=== PATIENT | male | born 1955 | race Caucasian/White ===

== ENCOUNTER 2021-12-09 00:04 | Outpatient (RCR) | payer MEDICARE, SELFPAY ==
--- OUTSIDE RECORDS SUMMARY | 2021-11-30 08:14 | XMS_ITS | Encounter Summary ---
:1955 Author Organization [facility] Address [address] [place] [address] Care Team Providers Name Role Phone Unavailable Primary Care Provider Unavailable Encounter Details Date Type Department Care Team Description 12/31/2016 Results Only [facility]- Mitch Kearney DPM [phone] [place] [phone] (Wo rk) Social History Tobacco Use Types Packs/Day Years Used Date Never Assessed Sex Assigned at Date Recorded Not on file documented as of this encounter Plan of Treatment Not on filedocumented as of this encounter Procedures Procedure Name Priority Date/Time Associated Diagnosis Comme [facility] SURGICAL PATHOLOGY Routine 12/31/2016 14:51 Resul ts for this EDT procedure are i n the results section. documented in this encounter Results SURGICAL PATHOLOGY (12/31/2016 14:51 EDT) Pathology Report: SURGICAL PATHOLOGY REPORT [facility] Reports generated via electronic interface contain robert ginal data; LABORATORY however they are lacking the format of the original re port. SERVICES Caution should be taken when reading/interpreting unfo rmatted reports. Name: ? SOLEDAD WAHL ? Accession #: ? [id number] ? : ? 1955 (Age: [age]) ??M ? Collect Date: ? 12/31/2016 ? Location: ? [facility] ? Receive Date: ? 7 ? Provider: [place] [place] DPM Copy to: SHYANN CORNEJO AMMONIA PRINT OPERATOR ? Final Pathologic Diagnosis: BONE, RIGHT 5TH METATARSAL HEAD, EXCISION: - No histologic evidence of osteomyelitis. ?? Document reviewed and electronically signed by: CHELSEY LOPEZ MD Report ??Date: 01/03/2017 16:35 By the signature above, the attending physician certif ies that he/she has personally conducted a gross and/or microscopic examin ation of the described specimens and rendered or confirmed the above diagnosi s. Specimen(s) Received: 5th metatarsal head, R Clinical History: 5th metatarsal head, R; chronic ulcer Gross Description: ? Received in formalin labelled with proper patient identification (initials L, D) and #1 metatarsal head 5th toe, right foot is a 1.6 x 1.5 x 1.0 cm ring-pink portion of bone. Sectioning reveals yellow tr abecular bone. Placement Director sections are submitted in 1 following d ecalcification. NIEVES Glass ([facility]) 01/01/2017 3:40 PM End of Report Specimen Performing Organization Address City/State/ZIP Code Phon e Number [facility] [address] [place] [address] SERVICES documented in this encounter Visit Diagnoses Not on filedocumented in this encounter
--- OUTSIDE RECORDS SUMMARY | 2021-11-30 08:14 | XMS_ITS | Clinical Summary ---
:1955 Author Organization [facility] Address [address] [place] [address] Care Team Providers Name Role Phone Sommer Obrien Primary Care Provider Social History Tobacco Use Types Packs/Day Years Used Date Never Assessed Sex Assigned at Date Recorded Not on file Plan of Treatment Health Maintenance Due Date Last Done Comments Fall Risk Screening 2018 Care Teams Intermediate Teacher Relationship Specialty Start Date End Date Sommer Obrien ARNP PCP - General 01/02/17
--- OUTSIDE RECORDS SUMMARY | 2021-11-30 08:15 | XMS_ITS | Encounter Summary ---
:1955 [place] [address] Care Team Providers Name Role Phone Brian Fall APRN Primary Care Provider Reason for Referral Consultation (Routine) - Authorized Specialty Diagnoses / Procedures Referred By Contact Refer red To Contact Infectious Diseases Diagnoses Osteomyelitis of great toe of right foot Diabetic infection of right foot Coagulase-negative staphylococcal infection Sequela of Corynebacterium infection Bacteroides infection Proteus mirabilis infection Judit Spencer [place] Infection due to species of Streptococcus milleri group Cellulitis of foot, right DO Jenaro Perez DO [facility] [address] FLORES INFECTIOUS DISEASE [place] [address] Fax: Referral ID Status Reason Start Date Expiration Visits Visits Date Requested Authorized [id number] Authorized Assume 11/28/2021 11/28/2022 1 1 Subset of Care [facility] (Routine) - Pending Review Specialty Diagnoses / Procedures Referred By Contact Refer red To Contact Diagnoses Acute osteomyelitis of right foot Necrotizing fasciitis Cyndy Padilla PA [address] [address] [place] [phone] Fax: Referral ID Status Reason Start Expiration Visits Visits Date Date Requested Authorized [id number] Pending Consult, 11/29/2021 11/29/2022 999 999 Review Test & Treat Reason for Visit Reason Comments Leg Pain Auth/Cert Specialty Diagnoses / Procedures Referred By Contact Refer red To Contact Diagnoses Necrotizing fasciitis Cellulitis of leg, right Necrotic toes Infected Toe [place] [address] Referral ID Status Reason Start Date Expiration Date Visits Requ ested Visits Authorized [id number] 1 1 Encounter Details Date Type Department Care Team Description 11/18/2021 - [address] Lorrie Barrow MD [facility] EM[facility] [place] [id number] Necrotizing fasciitis (Primary Dx); 11/29/2021 Encounter [facility] [place] [address] [facility]ec[facility] toes[facility] [place] [address] Cellulitis of leg, right; [facility] Jennifer Martinez MD [facility] [place] [address] Essential hypertension; Drive Chronic foot ulcer, unspecif ied laterality, unspecified ulcer stage; [place], [place] QT prolongation ; [phone] Osteomyelitis of great toe o f right foot; [phone] Diabetic infect ion of right foot; Coagulase-negat bg staphylococcal infection; Sequela of Esa nebacterium infection; Bacteroides inf ection; Proteus mirabil is infection; Infection due t o species of Streptococcus milleri group; Cellulitis of f oot, right; Acute osteomyel itis of right foot; S/p right great toe amp, I&D, vac 11/18/21 (Diego) Social History Tobacco Use Types Packs/Day Years Used Date Current Every Day Smoker Cigars, Cigarettes 1 42 Smokeless Tobacco: Never Used Comments: a pack or less a day Alcohol Use Standard Drinks/Week Comments Yes 22 (1 standard drink = 0.6 oz pure alcoh ol) Sex Assigned at Date Recorded Not on file documented as of this encounter Last Filed Vital Signs Vital Sign Reading Time Taken Comments Blood Pressure 123/86 11/29/2021 11:33 AM EDT Pulse 85 11/25/2021 3:16 PM EDT Temperature 36.6 ??C (97.9 ??F) 11/29/2021 11:33 AM EDT Respiratory Rate 20 11/29/2021 11:33 AM EDT Oxygen Saturation 95% 11/29/2021 11:33 AM EDT Inhaled Oxygen Concentration - - Weight 92.8 kg (204 lb 9.4 oz) 11/29/2021 3:50 AM EDT Height 175.3 cm (5' 9) 11/20/2021 3:51 PM EDT Body Mass Index 30.21 11/20/2021 3:51 PM EDT documented in this encounter Discharge Summaries Cyndy Padilla PA - 11/29/2021 3:47 PM EDT Images from the original note were not included. Discharge Summary Patient Name: Soledad Ramos Patient Age: 66 y.o. Language: Congolese Race: White Ethnicity: Not nor Admit date: 11/18/2021 Discharge date and time: 11/29/2021 Attending Physician: Jennifer Martinez MD Discharge Provider: NIEVES Hutton Follow-up Recommendations for Providers: - Continue methadone for chronic pain dose adjustments per ZELDA. His last dose of methadone was 45 mg on 11/29/2021. Last QTC done on the same day was 494. Plan discussed with Dr. Garrison at [facility] to increase by 10 mg daily while monitoring daily EKG. - Patient is on IV ertapenem 1 g daily and IV daptomycin 700 mg daily through 01/06 for osteomyelitis. His IV infusions are set up with [facility] Mendoza in [facility], with his next appointment on 11/30 at 1 PM. - He will need PCP, ID, orthopedic follow-up Inpatient Provider Contact Information: For questions regarding this document or issues relating to this hospitalization on the Medical Service, please contact your inpatient physician through the [facility] Shellfish Manager . Issues after hours and on weekends will be handled by the Hospitalist staff on-call. Discharge Diagnoses (Hospital Problems) and Secondary Diagnoses (Chronic Problems): Active Hospital Problems Diagnosis ? ? S/p right great toe amp, I&D, vac 11/18/21 (Diego) ??? Alcohol withdrawal syndrome, with delirium Resolved Hospital Problems No resolved problems to display. Active Non-Hospital Problems Diagnosis ??? Pruritic rash ??? Necrotizing soft tissue infection ??? Cellulitis of right foot ??? Acute osteomyelitis of right foot ??? Tightness of right gastrocnemius muscle ??? Edema of both lower extremities due to peripheral venous insufficiency ??? Functional gait abnormality ??? Noncompliance with treatment ??? Tobacco dependence syndrome ??? Chronic foot ulcer ??? Cellulitis ??? Tobacco user ??? Osteomyelitis ??? Neuropathic ulcer of toe of right foot with fat layer exposed ??? Neuropathic ulcer of foot, right, with fat layer exposed ??? Nausea ??? Fatigue ??? Patient has active durable power of oncology admin (DPOA) designee for healthcare ??? Methadone dependence ??? Minimal cognitive impairment ??? Claustrophobia ??? Hyperlipidemia ??? Avascular necrosis of humeral head ??? Pain in left shoulder ??? Verruca plantaris ??? Gastroesophageal reflux disease ??? Cirrhosis ??? Polysubstance abuse ??? Avascular necrosis bilateral knees ??? Depressive disorder ??? Neuropathy ??? Chronic obstructive lung disease ??? Edema ??? Essential hypertension ??? Confusion ??? Hepatitis C ??? Gout ??? Alcohol dependence ??? Anxiety ??? ADHD NOS ??? Chronic back pain ??? Major depressive disorder, single episode, unspecified Operations/Major Procedures: Operations: Procedure(s): DEBRIDEMENT SKIN, SUBCU, MUSCLE, BONE, LOWER EXTREMITY (WRVU 4.1) AMPUTATION, TRANSMETATARSAL (WRVU 12.71) 11/25/2021 Not Performed Procedure(s): DEBRIDEMENT SKIN, SUBCU, MUSCLE, BONE, LOWER EXTREMITY (WRVU 4.1) AMPUTATION, TRANSMETATARSAL (WRVU 12.71) 11/25/2021 Procedure(s): DEBRIDEMENT SKIN, SUBCU, MUSCLE, BONE, LOWER EXTREMITY (WRVU 4.1) AMPUTATION, TRANSMETATARSAL (WRVU 12.71) 11/25/2021 Procedure(s): DEBRIDEMENT SKIN, SUBCU, MUSCLE, BONE, LOWER EXTREMITY (WRVU 4.1) AMPUTATION, TRANSMETATARSAL (WRVU 12.71) 11/25/2021 Procedure(s): DEBRIDEMENT SKIN, SUBCU, MUSCLE, BONE, LOWER EXTREMITY (WRVU 4.1) AMPUTATION, TRANSMETATARSAL (WRVU 12.71) 11/25/2021 Other Major Procedures: N/A History of Presentation: As per admission H&P on 11/18: Soledad Ramos is a 66 y.o. male with hx of EtOH abuse with alcoholic neuropathy and chronic b/l foot wounds(previous osteomyelitis), prior left 4th- 5th amputations, COPD on 2 L O2 at home, opioid usedisorder on methadone and mild cognitive impairment presenting for admission from the [facility] (transferred from [facility] ED) at the request of the orthopedic surgery service for necrotizing soft tissue infection of the right foot/great toe. History obtained from patient and chart review . ?? Soledad relates that he initially presented to [facility] this AM after rapid progression of his chronic toe wounds over night. States he went to be on 11/17 in his usual state of health and when hewoke up this AM his right great toe/foot and leg developed progressive redness and swelling and he had developed a black spot on his right great toe. Patient related feeling pain in that toe/foot as well which is abnormal as his baseline is almost no feeling in his feet at all. He denies any fevers orchills. ?? He presented to [facility] where his labs were significant for a WBC 23k, Cr 1.1, Hgb 13, Glucose 117, Na 137, CRP unknown (not obtained). He was administered clindamycin and Vancomycin [facility] and recommended transfer to [facility] ED for further work-up and evaluation for potential necrotizing infection given his history of a rapidly progressing skin infection with areas concerning for necrosis. He was evaluated here upon arrival in the ED by theorthopedic team and their suspicions are confirmed by exam. They have ordered a CT and plan to take the patient to the OR in the next 6 hours. They have asked hospital medicine to admit patient given nh s medical complexity and multiple co-morbidities. Hospital Course: #Necrotizing soft tissue infection s/p RIGHT 1st toe amp on 11/18/[address] right LE consistent with necrotizing soft tissue infection. Orthopedics was consulted who completed guillotine partial first ray resection right foot with wound VAC 11/18/21. Right greattoe transmetatarsal amputation with wound VAC with 3 bone cultures were obtained on 11/23. Then lastly, he had debridement with closure, with removal of wound vac on 11/25; resection site culture obtained. Patient was initially started on Zosyn, clindamycin, vancomycin (11/19 - 11/23). Wound cx 11/18 with with Proteus mirabilis (resistant only to tetracycline and tigecycline), strep milleri and Staph aureus and anaerobic culture grew many bacteroides species. Therefore antibiotics were changed to ceftriaxone and Flagyl per ID on 11/23. Bone cultures from 11/23 and Tissue cultures 11/25 (confimed with Orthoto be bone along with tissue) grew 2 different coag negative staph susceptible to FQ, gentamicin, and vancomycin; Also grew rare Corynebacterium species. Therefore ID recommended daptomycin 700 mg and ertapenem 1 g every 24 hours for total 6-week, with EOT 01/06. He will need to remain nonweightbearingon his right lower extremity. He was seen by PT/OT, cleared for discharge home with VNA. ?? #opioid use disorder #EtOH abuse #peripheral neuropathy #post-op pain control #Acute Alcohol Withdrawal For acute pain he was treated with hydromorphone SC every 4 hours PRN post- operatively which was increased to q3 hours to meet more equivalent chronic baseline needs, tylenol, and gabapentin. QTC also noted to be 518. Therefore home methadone was held from 11/18-11/26. His methadone dose was confirmed to be 90 mg daily. He was resumed on methadone 15 mg twice daily on 11/27 with close monitoring of his QTC. His methadone was then uptitrated to 45 mg daily on 11/28. His last methadone dose was 45 mg on 11/29/2021. Repeat QTC 494. He was monitored for ETOH withdrawal and placed initially on CIWA scale using Ativan and transitioned to phenobarbital taper 11/20. and he was transitioned back to methadone ?? #Hypokalemia K low at 2.9, repleted. Telemetry unremarkable. #COPD on 2L NC at baseline #tobacco use- current 1 pack per day smoker He was continued on his home medications ?? #HTN Given hypo to normotensive blood pressures his home lisinopril and lasix were held on admission. Hishome metoprolol was reduced from 150 daily to 25 mg q6h. By time of discharge he was placed back on his home medication given persistently elevated hypertension requiring as needed hydralazine, likely due to pain. Blood pressure stable on discharge. #home medications Continued remained home medications pantoprazole, buspirone, mirtazapine 30 mg?? Vital Signs at Discharge: BP: 123/86, Heart Rate: 85, Temp: 36.6 ??C (97.9 ??F), Resp: 20, Height: 175.3 cm (5' 9) (11/20/21 1551) Weight: 92.8 kg (204 lb 9.4 oz) (11/29/21 0350) Functional and Cognitive Status: NWB RLE, AxOx3 Important Studies and Lab Data: Labs: Last wbc, hgb, hct plt Recent Labs 11/29/21 0340 WBC 12.5* HGB 13.9 HCT 41.3 Last 3 wbc, hgb, hct plt Recent Labs 11/29/21 0340 11/28/21 0315 11/26/21 0656 WBC 12.5* 12.8* 12.0* HGB 13.9 13.9 13.6* HCT 41.3 41.6 40.5 PLATELET 494* 504* 418* Last 3 Lytes Recent Labs 11/29/21 0340 11/28/21 1830 11/28/21 0315 11/26/21 0656 NA 138 -- 141 143 K 3.7 3.6 2.9* 3.6 CL 101 -- 102 109* CO2 25 -- 25 22 BUN 22* -- 14 8* CREATININE 1.47 -- 1.49 1.20 Last 3 LFTs Recent Labs 11/21/21 0838 11/18/21 1725 AST 13 Not Perf ALT 10 8 ALKPHOS 76 91 BILITOT 0.4 0.4 BILIDIR 0.1 Not Perf Last Ca, Mg, Phos Recent Labs 11/29/21 0340 11/28/21 0315 11/26/21 0656 11/23/21 1628 CALCIUM 9.2 9.0 < > 9.2 PHOS -- -- -- 4.0 MAGNESIUM -- 0.74 < > -- < > = values in this interval not displayed. Last 3 Coags No results for input(s): PT, INR, PTT in the last 168 hours. Last 3 ProBNP, Trop, CK Recent Labs 11/26/21 0656 CK 74 Last 3 TFT No results for input(s): TSH in the last 7068 hours. Invalid input(s): T4, FT4 Last 3 Lipids No results for input(s): CHLPL, HDL, LDLCHOL, LDLDIRECT, TRIG in the last 7068 hours. Last 3 HgbA1C No results for input(s): HA1C in the last 7068 hours. Last CRP, SEDRATE Recent Labs 11/19/21 0556 11/18/21 1725 CRP -- 265.6* SEDRATE 104* -- Last 3 CBC Recent Labs 11/29/21 0340 11/28/21 0315 11/26/21 0656 WBC 12.5* 12.8* 12.0* Pending Studies and Lab Data: N/A Discharge Conditions/Prognosis: Stable, improving Discharge to: Home with VNA Updated Allergies/ADRs: Allergies Allergen Reactions ??? Morphine Other (See Comments) STATES THAT IT DOES NOT TAKE HIS PAIN AWAY Immunizations Given this Hospitalization: Immunization History Administered Date(s) Administered ??? Hep A/Hep B 07/11/2009, 08/11/2009, 02/14/2010 ??? Influenza PF, Split 03/07/2011 ??? Influenza Vaccine, Whole 05/21/2007, 03/04/2008 ??? Pfizer Covid-19 (Purple Cap) Vaccine (12yrs+) 03/05/2021, 03/26/2021 ??? Pneumococcal Polyvalent 23 02/11/2012 ??? Tdap Vaccine 02/11/2012 Discharge Medications: Your Medications New Medications Dose Details cyclobenzaprine 5 mg Tab Commonly known as: Flexeril Take 1 tablet by mouth 3 times daily as needed for Muscle spasms. 5 mg Quantity: 15 tablet Refills: 0 DAPTOmycin 500 mg Solr Commonly known as: Cubicin 700 mg daily through 01/06 Refills: 0 ertapenem 1 gram Solr Commonly known as: INVanz Inject 1 g as directed daily for 38 days. 1 g Quantity: 300 mL Refills: 1 folic acid 1 mg Tab Commonly known as: Folvite Take 1 tablet by mouth daily. Start taking on: November 30, 2021 1,000 mcg Quantity: 30 tablet Refills: 0 thiamine 100 mg Commonly known as: Vitamin B1 Take 1 tablet by mouth daily. Start taking on: November 30, 2021 100 mg Quantity: 30 tablet Refills: 0 Continued medications with new dosing Dose Details albuteroL 90 mcg/actuation Hfaa Inhale 2 puffs into the lungs every 4 hours as needed for Wheezing. Use with spacer What changed: Another medication with the same name was removed. Continue taking this medication, and follow the directions you see here. 2 puff Quantity: 1 each Refills: 11 methadone 10 mg/mL Conc Commonly known as: Dolophine Take 4.5 mLs by mouth daily. Start taking on: November 30, 2021 What changed: ?? medication strength ?? how much to take 45 mg Refills: 0 Continued medications, unchanged Dose Details acetaminophen 325 mg Tab Commonly known as: Tylenol Take 650 mg every 4 hours by oral route as needed. Refills: 0 BUSPIRONE ORAL Take 30 mg by mouth 2 times daily. 30 mg Refills: 0 furosemide 40 mg Tab Commonly known as: Lasix Take 80 mg by mouth daily. 80 mg Refills: 0 gabapentin 300 mg Cap Commonly known as: Neurontin Take 600 mg by mouth 3 times daily. 600 mg Refills: 0 lisinopriL 40 mg Tab Commonly known as: Zestril Take 1 tablet by mouth daily. 40 mg Quantity: 90 tablet Refills: 3 * metoprolol succinate XL 100 mg Tablet sr Commonly known as: Toprol-XL Take 100 mg by mouth daily. (In addition 50mg tab, total dose: 150mg daily) 100 mg Refills: 0 * metoprolol succinate XL 50 mg Tablet sr Commonly known as: Toprol-XL Take 50 mg by mouth daily. (In addition 100mg tab, total dose: 150mg daily) 50 mg Refills: 0 mirtazapine 30 mg Tab Commonly known as: REMERON Take 30 mg by mouth nightly. 30 mg Refills: 0 multivitamin Tab Commonly known as: THERAGRAN Take 1 tablet by mouth daily. 1 tablet Refills: 0 pantoprazole EC 40 mg Tbec Commonly known as: Protonix Take 40 mg by mouth 2 times daily. 40 mg Refills: 0 triamcinolone 0.1 % Crea Commonly known as: Kenalog Apply twice daily to bilateral lower legs, times two weeks then off two week, repeat as needed. Quantity: 30 g Refills: 0 * This list has 2 medication(s) that are the same as other medications prescribed for you. Read thedirections carefully, and ask your doctor or other care provider to review them with you. STOPPED Medications Chantix Starting Month Box 0.5 mg (11)- 1 mg (42) Dspk Generic drug: varenicline donepeziL 10 mg Tab Commonly known as: Aricept Dulera 100-5 mcg/actuation Hfaa Generic drug: Mometasone-Formoterol nicotine 21 mg/24 hr Pt24 Commonly known as: Nicoderm CQ ondansetron ODT 8 mg Tbdl Commonly known as: Zofran-ODT predniSONE 20 mg Tab Commonly known as: Deltasone QUEtiapine 25 mg Tab Commonly known as: SEROquel Spiriva Respimat 2.5 mcg/actuation Mist Generic drug: tiotropium bromide Smoking Status at Discharge: Social History Tobacco Use Smoking Status Current Every Day Smoker ??? Packs/day: 1.00 ??? Years: 42.00 ??? Pack years: 42.00 ??? Types: Cigars, Cigarettes Smokeless Tobacco Never Used Tobacco Comment a pack or less a day Instructions Given to Patient at Discharge: Patient Instructions Instructions on Discharge to Home Why you were hospitalized - osteomyelitis You were hospitalized for a bone infection, osteomyelitis, and had your right great toe amputated. You will need to be on IV antibiotics until 01/06. You will need to follow-up with daily infusion clinic - [facility] in [facility] tomorrow at 1 PM. The infectious disease providers well call you to set up a follow-up appointment towards the end of your IV antibiotic course. You also have an orthopedic follow-up at 2:30 PM on 12/11. You may continue with [id number] Tylenol as needed for pain, not to exceed 4000 mg daily. We also resumed your methadone dose, you are now on 45 mg daily. You will need to see your [facility] provider for your next methadone dose, it is very important that you bring all of your home methadone to that visit. I will also give you a copy of this discharge summary signed as a last dose letter for you to provide the clinician and ordered for you to get your methadone dose. Your PCP appointment is on 12/10 at 9:30 AM. Call your doctor or seek medical attention if you develop the following - chest pain, shortness of breath, fever, cough, weakness in an arm or leg Activity level - no restrictions Diet - no change in previous diet Driving - as before hospitalization. Please do not drive while on narcotics Shower/Bath - permitted Wound Care - none Home Oxygen therapy - none Changes in Your Medications: New Medications: - IV antibiotics - Daptomycin and Ertapenam - Folate - Vitamin B12 - Flexeril three times a day as need for muscle spasms Medication dose changes: - Methadone dose now at 45 mg, he will need to follow-up at [facility] tomorrow to have your new dose set by them. Stop these medications: - Zofran Follow-up: Future Appointments Date Time Provider Department [facility] Your Inpatient Doctor: LORRIE LUNDBERG, VALENTINA ROGERS, AFSHIN MARTINEZ, JENNIFER Perez Your Primary Care Provider: @PCPID@ For questions regarding this document or issues relating to this hospitalization on the Medical Service, please contact your inpatient physician through the [facility] Shellfish Manager . Issues after hours and on weekends will be handled by the Hospitalist staff on-call. General Instructions Orthopedic Surgery Discharge Instructions Activity level: 1. You are Non-weight bearing on your Right leg. 2. Remember to use the walker or crutches at all times for protection and balance. 3. Remember to keep your Right leg elevated as much as possible to decrease swelling and control pain. Driving: None until you are cleared to do so by your Orthopedic surgeon. You should not drive while you are on narcotic pain meds as they can affect your judgment and reaction time. Call your surgeon with any questions/concerns. Shower/Bath: You may shower BUT use a waterproof dressing (plastic bag taped at the top) to cover the incision/dressing. DO NOT submerge the wound. Remember you MUST to observe your weight bearing status and activity limitations when you shower so use a chair or bench for balance if you are unable to safely stand. A sponge bath may be easier. Wound Care: 1. Suture/staple removal 2-3 weeks post-op (12/10 to 12/17). 2. Leave the operative dressing on until follow-up. Call your doctor ([phone]) if you develop: 1. Fever greater than 100.5 2. Severe nausea or vomiting 3. Increasing pain that is not controlled by pain medications 4. Increasing redness, swelling, or drainage from incisions 5. Change in sensation Misc: 1. If you are a smoker, quitting is very important to help your fracture heal. You should contact your PCP to assist you with setting up a cessation program. 2. Remember that ICE and elevation are very important to help decrease swelling and control pain. You should use the ICE for 20-30 minutes at a time. 3. To help with bone healing and your overall bone health, your intake of calcium should be at [id number] a day and your vitamin D intake should be at least 800 IU per day. FOLLOW-UP APPOINTMENTS: 1. You will have follow-up appointments at [facility] as indicated in Future Appointment and Orders. 2. Please call Orthopedics at if you have any questions or concerns, as your follow-up is important to us. Future Appointments Date Time Provider Department Center 12/11/2021 1:00 PM [facility] DX ROOM 2 Xray [facility] Rad 12/11/2021 2:30 PM Marion Tavera APRN [facility] ORTH 3C [facility] 01/15/2022 12:[address] [facility] [address] [facility] RAD CT [facility] Rad SAME DAY PROGRAM POST-OPERATIVE INSTRUCTIONS What to Expect After a Nerve Block Prevent pain as the nerve block wears off. The nerve block you had to prevent pain during a procedure, will wear off in 12-48 hours. Once the block starts wearing off, it goes fast - often gone in 60 minutes. If you will need pain relief after the block wears off, your surgeon will prescribe pain medicine. ??? IMPORTANT: Start taking pain medicine before the nerve block wears off. ??? Eat something before taking the pain medicine to prevent upset stomach. If it's not mealtime, eating crackers or a light snack will help. ??? Nerve blocks sometimes wear off during the night. Take pain medicine before going to sleep, so you don't wake up in pain. A nerve block may create strange feelings in the blocked body part. Nerves control movement, pain, and normal sensations. When they are blocked to prevent pain, you may have feelings in the blocked area of: ??? Weakness ??? Numbness ??? Tingling ??? Heaviness ??? A feeling that your arm or leg has ???fallen asleep?? Just to repeat, the block can last 12-48 hours depending on the medicines used. Usually weakness wears off first, followed by a numb or tingly sensation. Pain can return unless you take pain medicines before the block wears off. If you had a shoulder block, you may notice these other signs: ??? Mild shortness of breath ??? A hoarse voice ??? Blurry vision ??? Eye pupils not equal in size ??? Drooping of your face on the same side as the nerve block These are common side effects after a shoulder nerve block. They should go away within 12 hours. *IMPORTANT: If these signs do not go away in 24 hours, please call the Anesthesiology Department: [phone] Shortness of breath: If you have severe shortness of breath that seems to go on and on, please go tothe nearest ER (emergency room). If a nerve block lasts longer than 48 hours, take action. If the nerve block does not wear off within 48 hours, please call the Anesthesiology Department: [phone] Protect the part of your body that is numb. Because a nerve block stops pain, pressure, or feeling in your blocked body part, you might be more at risk for injury. For example, you could burn your arm or leg without knowing it right away. Use these tips to protect your limb while it's numb: ??? While you are awake, try to change positions of your arm or leg often. This keeps you from putting too much pressure on a limb for a long time. ??? While sleeping, use pillows around the limb to stop too much pressure on it for too long. ??? If you have a cast or a tight dressing, check the color of your fingers or toes every few hours.If they have a strange color, call your doctor. ??? If you have a sling after an arm or hand block, wear it all the time until feeling returns to your arm or hand. The sling keeps you in the right position. If you do not have a sling, look at the position of the numb arm often, to make sure it's safe. ??? Ask your family or support person to help you stay aware and use these tips. Questions? Please call the Anesthesiology Department with concerns or questions: [phone] After hours: Call the hospital mixer operator helper hot metal and ask for the anesthesiologist (deb talbot) motor room controller: [phone] Updated: 03/19/21 If you have questions or concerns: Friday through Friday, 8 AM - 5 PM, please call Sammy Baker MD's office at . If it is after 5 PM or on the weekend, please call and ask to speak with the Orthopedic resident on-call. Substance Use Treatment, Harm-Reduction, and Relapse Prevention Resources [facility] Treatment: [place] [id number] [address] Intensive Outpatient Program: [facility] [address], [place] [phone] Individual Counseling: [facility] [address], [place] [address] [facility] [address] [place] [phone] [phone] Anne-Marie [facility], [facility] [address] [place] [phone] Offers EMDR Therapy You may also search www.PetroFeed.RoboCV or AMResorts for therapists in your area. EMDR Therapy Eye Movement Desensitization and Reprocessing (EMDR) therapy is an extensively researched, effectivepsychotherapy method proven to help people recover from trauma and other distressing life experiences, including PTSD, anxiety, depression, and panic disorders. EMDR therapy does not require talking indetail about the distressing issue or completing homework between sessions. EMDR therapy, rather than focusing on changing the emotions, thoughts, or behaviors resulting from the distressing issue, allows the brain to resume its natural healing process. EMDR therapy is designed to resolve unprocessed traumatic memories in the brain. For many clients, EMDR therapy can be completed in fewer sessions than other psychotherapies. www.emdria.org/qqgvc-vvbq-ehpomhd/ Medication Assisted Therapy: [address] [place] [address] [place], [place] [id number] Peer Support Groups Alcoholics Anonymous (AA) [place]: , www.nhaa.net Narcotics Anonymous (NA) [place]: , www.gmana.org Community Peer Support Center [address] [phone] Online AA and NA Meetings AA, NA, Refuge Recovery, SMART Recovery www.Casinity AA Video Meetings www.aa-intergroup.org/directory_audio-video.php AA Text Chat Meetings www.aa.intergroup.org/directory.php NA Video Meetings www.virtual-na.org/meetings NA Text Chat Meetings Www.neveraloneclub.org SMART Recovery Meetings via Zoom 5:00-6:00pm, free and open to all To join Zoom meetin. Visit www.coRank 2. Click on calendar on top of toolbar 3. Find the correct meeting date and time 4. Click the zoom link and enter password provided Additional Substance Use Treatment Resources Www.vtaddictionservices.org www.healthvermont.gov/alcohol-drugs www.eobewmj328.org/ (Search for Substance Use) www.Concept[employer]/ Www.rethinkingdrinking.niaaa.nih.gov/ www.samhsa.gov/xjkznhbzqd-waoatxmt-iviseiqzi/ijtmuyeobxrf-ttkmslr-bufr/treatment -practitioner-calker Mental Health Crisis [facility] [facility] Crisis Line: Dial 984 www.[facility].gov/find-help/982 Harm-Reduction Resources Mobile yuback. For more information about receiving supplies: including syringe exchange, fentanyl test strips, and naloxone, or to schedule an appointment: [place] clients call and leave a message for Yoana (ext. 105) or Zbigniew Quigley (ext. 104). [place] clients call to speak with Zbigniew Waddell Suboxone Emergency Override There is an emergency override requirement on all medications that require prior insurance authorization. If you experience any issues picking up your suboxone prescription at the pharmacy you may request an override. They are required to provide the quantity of suboxone sufficient for 72 hours while the prior insurance authorization is being approved. Online Stress Reduction Resources www.[employer] Holding.RoboCV/videos-features/videos/pzaienvut-vsqeibowe-1-7-8-breath/ www.themindfulword.org/2013/unpvzwiat-oqelrcitg-mxtwqob-moment/ www.Topcom [place]/ www.mindful.org/ www.freemindfulness.org/ Employment Agency Working [address] [address] rom@Voice2Insight Providing an opportunity for successful employment and recovery by empowering individuals to manage challenges because of substance use addiction and past convictions. YOU ARE SCHEDULED FOR A FOLLOW UP APPOINTMENT WITH YOUR PRIMARY CARE PROVIDER ON 12/10/2021 AT 9:30AM Future Appointments and Orders Future Appointments and Orders Future Appointments Provider Department Dept Phone 12/11/2021 1:00 PM [facility] DX ROOM 2 XRay at [facility] Arrive at: Flight Operations Dispatch Clerk Area 3T [phone] Please go to Flight Operations Dispatch Clerk Area 3T ([facility] Location). 12/11/2021 2:30 PM Marion Tavera APRN Orthopaedics at [facility] Arrive at: Flight Operations Dispatch Clerk Area 3C [phone] 01/15/2022 12:[address] [facility] [address] CT Scan at [facility] Arrive at: 3Z RADIOLOGY [phone] Future Orders Complete By Expires XR Foot Min 3 views Right (Generic) [23951 Custom] 12/11/2021 05/30/2022 Process Instructions: Scheduling Instructions: Comments: Questions: Where will study be performed?: [facility] Radiology Portable exam?: Reason for exam and clinical history: s/p 1st toe amp Clinical information / hansen questions for radiologist: Stat read required?: Date of injury if applicable: Requested Time: OPAT: Order / Recommendation for Post Discharge IV Antibiotic Management [FEP697 CPT(R)] As directed Process Instructions: If no progress note charted, please enter Clinical details in comments. Scheduling Instructions: Comments: Please Fax all results to: OPAT Program Infectious Disease Section [facility] [place], [place] [address] FAX: After hours, please contact the Infectious Disease Physician motor room controller at . If this order was signed greater than 72 hours prior to [facility] discharge, please call to confirm the accuracy of this order. If concerned about opioid overdose, administer patient's own naloxone 4mg (contents of 1 nasal spray) as a single dose in one nostril PRN for signs of opioid overdose (depressed respirations or consciousness). May repeat as needed q2-3 minutes in alternating nostrils until medical assistance arrives. Line care instructions: PLEASE NOTE: Not all facilities use Heparin Adult PICC, Single Lumen Flush protocol with medication infusion (SASH): Before Med: 10ml Normal Saline After Med: 10ml Normal Saline then 3 ml Heparin (10 units/ml) Flush protocol after blood withdrawal: Before: 10 ml Normal Saline Draw blood After: 20 ml Normal Saline then 3 ml Heparin (10 units/ml) If PICC line not being used for daily IV infusions: Flush 2x's daily & prn: 10 ml Normal Saline then 3 ml heparin (10 units/ml) care home for medication administration/film processing shift supervisor and catheter care/maintenance authorized. PICC Dressing Change weekly and PRN Please use CHG or Bio Patch RNs: Please care for PICC line including dressing changes weekly and prn. Please draw labs every Friday and PRN and fax results to [facility] at [phone]. Please draw labs off PICC line. [facility] for [facility] draw details. RN visits for IV ABX teaching as needed and ongoing assessment. Catheter Occlusion Management Instill reconstituted Cathflo 2mg per instillation (based on the volume of the catheter lumen). May repeat x1 per occlusion incident. Questions: ID Diagnosis: Cellulitis/Polymicrobial diabetic foot infection, Osteomyelitis of right great toe; s/p reamputation through [facility] 11/25/21 Microorganisms being treated: Coagulase negative staph, Corynebacterium species, Bacteroides species, Proteus mirabilis, Strep milleri Antibiotic Allergies: No Known Antibiotic Drug Allergies Antibiotic: Daptomycin 700 mg IV Every 24 Hours Ertapenem 1 Gram IV Every 24 Hours Special Instructions: Start date: 11/25/2021 Anticipated stop date: 01/06/2022 Labs: Q Friday: CBC/Diff, CMP Q Friday Inflammatory CRP Q Friday CPK Last documented weight (kg): 91.9 kg (202 lb 11.2 oz) Last documented height (cm): 175.3 cm (5' 9) Infectious Disease Attending: Judit Spencer, [facility] [EQ161 Custom] As directed Process Instructions: Scheduling Instructions: Comments: Soledad Ramos [address] [facility] [facility] [phone] (home) No relevant phone numbers on file. Diagnosis: deconditioning with Unsteady gait Significant weakness, ataxia or gait abnormality Patient's: Hgt: Ht Readings from Last 1 Encounters: 07/12/22 : 175.3 cm (5' 9) ? Wgt: Wt Readings from Last 1 Encounters: 11/29/21 : 92.8 kg (204 lb 9.4 oz) VENDOR: [facility] Ordering: Front wheel walker Deliver to 's hospital room #: 110-B Questions: Device Needed: 2 BUTTON FOLDING WHEELED WALKER (E0143) Referral for Outpatient Antibiotics [XKL7452 CPT(R)] As directed Process Instructions: Scheduling Instructions: Comments: Follow OPAT orders Questions: Vendor / contact information: [facility] Patient location post discharge: Home Service requested: Home ABX with supplies / PICC line Start date: Responsible MD post discharge contact info: Referral to Home Health [REF34 Custom] As directed Process Instructions: If no progress note charted, please enter Clinical details in comments. Scheduling Instructions: Comments: Please evaluate Soledad Ramos for admission to Home Health. [address] [facility] [phone] (home) Date of : 1955 DOCUMENTATION FOR VNA SERVICES (INCLUDING THOSE PATIENTS WITH MEDICARE COVERAGE REQUIRING HOME VNA SERVICES AND/OR HOSPICE SERVICES) PATIENT'S LOCATION: Soledad Ramos [address] [facility] [address] (home) Cell: No relevant phone numbers on file. Industrial Relations Worker's Name: Self / In discussion with the attending physician, it is certified that this patient is under their care and that they, or a Nurse Practitioner,Clinical Nurse specialist or Physician Bus Matron who is working directly with them, had a face to face encounter that meets the physician face to face encounter requirements with this patient on 11/29/2021. The encounter with the patient was in whole, or in part, for the following medical condition, which is the primary reason for home health care services: osteomyelitis on IV antibiotics In discussion with the provider, it is certified that, based on their findings, the following services are medically necessary for home health services. To provide the following care/treatments with the clinical findings supporting the need for servicesas follows: HOME CARE ORDERS: RN ORDERS:Assess wound or incision, vital signs, cardiopulmonary status, nutrition, hydration, elimination, meds effectiveness and management; reinforce education re health issues Wound Care: 1. Suture/staple removal 2-3 weeks post-op (12/10 to 12/17). 2. Leave the operative dressing on until follow-up. Home IV ABX / PICC line care PT ORDERS: Continue rehab for endurance, gait stability and strength with mobility and transfers. Home safety evaluation. Home exercise program if appropriate. OT: assess and continue rehab for managing ADL's. HOME HEALTH CARE AGENCY: [facility] [place] [address] PHONE: [phone] FAX: [phone] Start of care: Day of discharge FOR MEDICARE ONLY: (please delete this section if not Medicare) In discussion with the attending physician, it is certified that the clinical findings support that this patient is homebound because absences from home require considerable and taxing effort due to: Patient is unable to leave home without assistance and ambulation is severely limited by pain, decreased strength and/or endurance. and Medically contraindicated due to infected, draining or complicated wound Please note that any additional orders needs or changes will need to be obtained from this patient'sPCP: Brian Fall APRN [address] [facility] [address] All VNA agencies which cover the area of patient's residence have been reviewed, either verbally or in writing, and patient/family have chosen the home health care agency noted Questions: Disciplines Requested: Nursing Physical Therapy Occupational Therapy Discharge References/Attachments None documented in this encounter Discharge Instructions Discharge InstructionsNiki Gonzalez CMA - 11/18/2021 9:50 PM EDT Orthopedic Surgery Discharge Instructions Activity level: 1. You are Non-weight bearing on your Right leg. 2. Remember to use the walker or crutches at all times for protection and balance. 3. Remember to keep your Right leg elevated as much as possible to decrease swelling and control pain. Driving: None until you are cleared to do so by your Orthopedic surgeon. You should not drive while you are on narcotic pain meds as they can affect your judgment and reaction time. Call your surgeon with any questions/concerns. Shower/Bath: You may shower BUT use a waterproof dressing (plastic bag taped at the top) to cover the incision/dressing. DO NOT submerge the wound. Remember you MUST to observe your weight bearing status and activity limitations when you shower so use a chair or bench for balance if you are unable to safely stand. A sponge bath may be easier. Wound Care: 1. Suture/staple removal 2-3 weeks post-op (12/10 to 12/17). 2. Leave the operative dressing on until follow-up. Call your doctor ([phone]) if you develop: Fever greater than 100.5 Severe nausea or vomiting Increasing pain that is not controlled by pain medications Increasing redness, swelling, or drainage from incisions Change in sensation Misc: 1. If you are a smoker, quitting is very important to help your fracture heal. You should contact your PCP to assist you with setting up a cessation program. 2. Remember that ICE and elevation are very important to help decrease swelling and control pain. You should use the ICE for 20-30 minutes at a time. 3. To help with bone healing and your overall bone health, your intake of calcium should be at [id number] a day and your vitamin D intake should be at least 800 IU per day. FOLLOW-UP APPOINTMENTS: 1. You will have follow-up appointments at [facility] as indicated in Future Appointment and Orders. 2. Please call Orthopedics at if you have any questions or concerns, as your follow-up is important to us. Future Appointments Date Time Provider Department Center 12/11/2021 1:00 PM [facility] DX ROOM 2 Xray [facility] Rad 12/11/2021 2:30 PM Marion Tavera APRN [facility] ORTH 3C [facility] 01/15/2022 12:[address] [facility] [address] [facility] RAD CT [facility] Rad SAME DAY PROGRAM POST-OPERATIVE INSTRUCTIONS What to Expect After a Nerve Block Prevent pain as the nerve block wears off. The nerve block you had to prevent pain during a procedure, will wear off in 12-48 hours. Once the block starts wearing off, it goes fast - often gone in 60 minutes. If you will need pain relief after the block wears off, your surgeon will prescribe pain medicine. IMPORTANT: Start taking pain medicine before the nerve block wears off. Eat something before taking the pain medicine to prevent upset stomach. If it's not mealtime, eating crackers or a light snack will help. Nerve blocks sometimes wear off during the night. Take pain medicine before going to sleep, so you don't wake up in pain. A nerve block may create strange feelings in the blocked body part. Nerves control movement, pain, and normal sensations. When they are blocked to prevent pain, you may have feelings in the blocked area of: Weakness Numbness Tingling Heaviness A feeling that your arm or leg has ???fallen asleep?? Just to repeat, the block can last 12-48 hours depending on the medicines used. Usually weakness wears off first, followed by a numb or tingly sensation. Pain can return unless you take pain medicines before the block wears off. If you had a shoulder block, you may notice these other signs: Mild shortness of breath A hoarse voice Blurry vision Eye pupils not equal in size Drooping of your face on the same side as the nerve block These are common side effects after a shoulder nerve block. They should go away within 12 hours. *IMPORTANT: If these signs do not go away in 24 hours, please call the Anesthesiology Department: [phone] Shortness of breath: If you have severe shortness of breath that seems to go on and on, [facility] If a nerve block lasts longer than 48 hours, take action. If the nerve block does not wear off within 48 hours, please call the Anesthesiology Department: [phone] Protect the part of your body that is numb. Because a nerve block stops pain, pressure, or feeling in your blocked body part, you might be more at risk for injury. For example, you could burn your arm or leg without knowing it right away. Use these tips to protect your limb while it's numb: While you are awake, try to change positions of your arm or leg often. This keeps you from putting too much pressure on a limb for a long time. While sleeping, use pillows around the limb to stop too much pressure on it for too long. If you have a cast or a tight dressing, check the color of your fingers or toes every few hours. If they have a strange color, call your doctor. If you have a sling after an arm or hand block, wear it all the time until feeling returns to your arm or hand. The sling keeps you in the right position. If you do not have a sling, look at the position of the numb arm often, to make sure it's safe. Ask your family or support person to help you stay aware and use these tips. Questions? Please call the Anesthesiology Department with concerns or questions: [phone] After hours: Call the hospital mixer operator helper hot metal and ask for the anesthesiologist (deb talbot) motor room controller: [phone] Updated: 03/19/21 If you have questions or concerns: Friday through Friday, 8 AM - 5 PM, please call Sammy Baker MD's office at . If it is after 5 PM or on the weekend, please call and ask to speak with the Orthopedic resident on-call. Substance Use Treatment, Harm-Reduction, and Relapse Prevention Resources Residential Treatment: [address] [address] Intensive Outpatient Program: [address] [address] Individual Counseling: [address] [address] [facility] [address] [place] [address] x6 Anne-Marie Tang[address] [phone] Offers EMDR Therapy You may also search www.psychologytoday.com or AMResorts for therapists in your area. EMDR Therapy Eye Movement Desensitization and Reprocessing (EMDR) therapy is an extensively researched, effectivepsychotherapy method proven to help people recover from trauma and other distressing life experiences, including PTSD, anxiety, depression, and panic disorders. EMDR therapy does not require talking indetail about the distressing issue or completing homework between sessions. EMDR therapy, rather than focusing on changing the emotions, thoughts, or behaviors resulting from the distressing issue, allows the brain to resume its natural healing process. EMDR therapy is designed to resolve unprocessed traumatic memories in the brain. For many clients, EMDR therapy can be completed in fewer sessions than other psychotherapies. www.emdria.org/pgozy-oztn-zcypfdw/ Medication Assisted Therapy: [address] [place], [place] [id number] [address] [place], [place] [id number] Peer Support Groups Alcoholics Anonymous (AA) [place]: , www.Cypress Blind and Shutteraa.net Narcotics Anonymous (NA) [place]: , www.Greetzana.org Community Peer Support Center [address] [place] [address] Online AA and NA Meetings AA, NA, Refuge Recovery, SMART Recovery www.Casinity AA Video Meetings www.aa-intergroup.org/directory_audio-video.php AA Text Chat Meetings www.aa.intergroup.org/directory.php NA Video Meetings www.beatlabna.org/meetings NA Text Chat Meetings Www.GreenDot Transaloneclub.org SMART Recovery Meetings via Zoom 5:00-6:00pm, free and open to all To join Zoom meeting: Visit www.coRank Click on calendar on top of toolbar Find the correct meeting date and time Click the zoom link and enter password provided Additional Substance Use Treatment Resources Www.vtaddictionservices.org www.healthvermont.gov/alcohol-drugs www.[place] [address].org/ (Search for Substance Use) www.psychologytoday.com/ Www.rethinkingdrinking.niaaa.nih.gov/ www.samhsa.gov/tccoslcrrw-hyaumoxh-specfzjng/taxnidymljdp-yxdfkby-fpij/treatment -practitioner-calker Mental Health Crisis [facility] Crisis Line: Dial 988 www.samhsa.gov/find-help/988 Harm-Reduction Resources Mobile yuback. For more information about receiving supplies: including syringe exchange, fentanyl test strips, and naloxone, or to schedule an appointment: [place] clients call and leave a message for Yoana (ext. 105) or Zbigniew Quigley (ext. 104). [place] clients call to speak with Zbigniew Waddell Suboxone Emergency Override There is an emergency override requirement on all medications that require prior insurance authorization. If you experience any issues picking up your suboxone prescription at the pharmacy you may request an override. They are required to provide the quantity of suboxone sufficient for 72 hours while the prior insurance authorization is being approved. Online Stress Reduction Resources www.DeviceFidelity/videos-features/videos/dxpwteked-xvjyuvyml-4-7-8-breath/ www.Differential.org/2013/cuofzrtzx-nmjowhdwn-ckbkclr-moment/ www.Topcom [place]/ www.mindful.org/ www.First Wave.org/ Employment Agency Working [address] [place] [address] [employer]Pennant[email or web address] Providing an opportunity for successful employment and recovery by empowering individuals to manage challenges because of substance use addiction and past convictions. YOU ARE SCHEDULED FOR A FOLLOW UP APPOINTMENT WITH YOUR PRIMARY CARE PROVIDER ON 12/10/2021 AT 9:30AM Patient Cyndy Shah PA - 11/29/2021 3:29 PM EDT Instructions on Discharge to Home Why you were hospitalized - osteomyelitis You were hospitalized for a bone infection, osteomyelitis, and had your right great toe amputated. You will need to be on IV antibiotics until 01/06. You will need to follow-up with daily infusion clinic - [facility] in [facility] tomorrow at 1 PM. The infectious disease providers well call you to set up a follow-up appointment towards the end of your IV antibiotic course. You also have an orthopedic follow-up at 2:30 PM on 12/11. You may continue with gyid-ocm-rxyxrwa Tylenol as needed for pain, not to exceed 4000 mg daily. We also resumed your methadone dose, you are now on 45 mg daily. You will need to see your [facility] provider for your next methadone dose, it is very important that you bring all of your home methadone to that visit. I will also give you a copy of this discharge summary signed as a last dose letter for you to provide the clinician and ordered for you to get your methadone dose. Your PCP appointment is on 12/10 at 9:30 AM. Call your doctor or seek medical attention if you develop the following - chest pain, shortness of breath, fever, cough, weakness in an arm or leg Activity level - no restrictions Diet - no change in previous diet Driving - as before hospitalization. Please do not drive while on narcotics Shower/Bath - permitted Wound Care - none Home Oxygen therapy - none Changes in Your Medications: New Medications: - IV antibiotics - Daptomycin and Ertapenam - Folate - Vitamin B12 - Flexeril three times a day as need for muscle spasms Medication dose changes: - Methadone dose now at 45 mg, he will need to follow-up at [facility] tomorrow to have your new dose set by them. Stop these medications: - Zofran Follow-up: Future Appointments Date Time Provider Department [facility] Your Inpatient Doctor: LORRIE LUNDBERG HANNAH L BHISE, VIRAJ R MUELLER, CATHERINE L Your Primary Care Provider: @PCPID@ For questions regarding this document or issues relating to this hospitalization on the Medical Service, please contact your inpatient physician through the [facility] Shellfish Manager . Issues after hours and on weekends will be handled by the Hospitalist staff on-call. documented in this encounter Medications at Time of Discharge Medication Sig Dispensed Refills Start Date End Date ertapenem (INVanz) 1 gram Inject 1 g as 300 mL 1 022 01/06/2022 Recon Soln directed daily for 38 days. DAPTOmycin (Cubicin) 500 700 mg daily 0 2 01/06/2022 mg Recon Soln through 01/06 folic acid (Folvite) 1 mg Take 1 tablet by 30 tablet 0 11/10 Tablet mouth daily. methadone (Dolophine) 10 Take 4.5 mLs by 0 2021 mg/mL Concentrate mouth daily. cyclobenzaprine (Flexeril) Take 1 tablet by 15 tablet 0 5 mg Tablet mouth 3 times daily as needed for Muscle spasms. thiamine (Vitamin B1) 100 Take 1 tablet by 30 tablet 0 11/10 mg mouth daily. gabapentin (Neurontin) 300 Take 600 mg by 0 09/29 mg Capsule mouth 3 times daily. mirtazapine (REMERON) 30 Take 30 mg by mouth 0 mg Tablet nightly. albuteroL 90 mcg/actuation Inhale 2 puffs into 1 each 08/15/2021 HFA Aerosol the lungs every 4 InhalerIndications: Stage hours as needed for 2 moderate COPD by GOLD Wheezing. Use with classification spacer metoprolol succinate XL Take 50 mg by mouth 0 08/2020 (Toprol-XL) 50 mg Tablet daily. (In addition Sustained Release 24 hr 100mg tab, total dose: 150mg daily) pantoprazole EC (Protonix) Take 40 mg by mouth 0 40 mg Tablet, Delayed 2 times daily. Release (E.C.) triamcinolone (KENALOG) Apply twice daily 30 g 0 06/12 0.1 % Cream to bilateral lower legs, times two weeks then off two week, repeat as needed. lisinopriL Take 1 tablet by 90 tablet 3 03/15/2020 (Prinivil;Zestril) 40 mg mouth daily. Tablet acetaminophen (Tylenol) Take 650 mg every 4 0 05/2019 325 mg Tablet hours by oral route as needed. furosemide (Lasix) 40 mg Take 80 mg by mouth 0 Tablet daily. buspirone HCl (BUSPIRONE Take 30 mg by mouth 0 ORAL) 2 times daily. meTOPROLOL succinate Take 100 mg by 0 07/25/2016 (TOPROL-XL) 100 mg Tablet mouth daily. (In Sustained Release 24 hr addition 50mg tab, total dose: 150mg daily) multivitamin (THERAGRAN) Take 1 tablet by 0 08/21 tablet mouth daily. documented as of this encounter Progress Notes Bernice Coronel RN - 11/29/2021 5:35 PM ED[place]ums[place]: Nursing Discharge Summary Nursing Discharge Summary Soledad Ramos??is a 66 y.o.??male??with hx of EtOH abuse with alcoholic neuropathy and chronic b/l foot wounds (previous osteomyelitis), prior left 4th- 5th amputations, COPD on 2 L O2 at home, opioid use disorder on methadone and mild cognitive impairment presented 11/18/21??for admission to [facility]??(transferred from [facility] ED) at the request of the orthopedic surgery service for necrotizing soft tissue infection of the right foot/great toe. A&Ox3-4, forgetful but easily reoriented. Anxious, Ativan given once w/ relief. VSS on RA. Telemetry unremarkable, HR 70-80s NSR. Lungs diminished throughout, denies SOB/CUNHA & refusing nebs at this time. RUE PICC c/d/i, placed for retirement abx treatment. All meds given per JUL. Continues on probiotics for diarrhea. RLE amputation site covered w/ DSD, c/d/i. Noncompliant w/ NWB status on RLE. OOB w/ FWW & offloading boot x1A. Pain managed w/ Methadone, Tylenol, & Gabapentin. QTc 494. Discharged home to supportive w/ VNA & PT services, offloading shoe & FWW. Spouse educated on stair ambulation by PT. Cyndy Padilla PA - 11/29/2021 4:18 PM EDT Hospital Medicine - Day of Discharge Documentation Discharge diagnosis Active Hospital Problems Diagnosis ? ? S/p right great toe amp, I&D, vac 11/18/21 (Diego) ??? Alcohol withdrawal syndrome, with delirium Resolved Hospital Problems No resolved problems to display. Secondary Issues Active Non-Hospital Problems Diagnosis ??? Pruritic rash ??? Necrotizing soft tissue infection ??? Cellulitis of right foot ??? Acute osteomyelitis of right foot ??? Tightness of right gastrocnemius muscle ??? Edema of both lower extremities due to peripheral venous insufficiency ??? Functional gait abnormality ??? Noncompliance with treatment ??? Tobacco dependence syndrome ??? Chronic foot ulcer ??? Cellulitis ??? Tobacco user ??? Osteomyelitis ??? Neuropathic ulcer of toe of right foot with fat layer exposed ??? Neuropathic ulcer of foot, right, with fat layer exposed ??? Nausea ??? Fatigue ??? Patient has active durable power of oncology admin (DPOA) designee for healthcare ??? Methadone dependence ??? Minimal cognitive impairment ??? Claustrophobia ??? Hyperlipidemia ??? Avascular necrosis of humeral head ??? Pain in left shoulder ??? Verruca plantaris ??? Gastroesophageal reflux disease ??? Cirrhosis ??? Polysubstance abuse ??? Avascular necrosis bilateral knees ??? Depressive disorder ??? Neuropathy ??? Chronic obstructive lung disease ??? Edema ??? Essential hypertension ??? Confusion ??? Hepatitis C ??? Gout ??? Alcohol dependence ??? Anxiety ??? ADHD NOS ??? Chronic back pain ??? Major depressive disorder, single episode, unspecified I have personally seen and examined the patient and they are ready for discharge. Select the appropriate statement that describes your involvement and care and omit the other: I spent >30 minutes (Day of Discharge Code 77672) involved in the final examination of the patient, discussion of the hospital stay, instructions for continuing care to all relevant caregivers, and preparation of discharge records, prescriptions and referral forms. Plans ? Discharge to home with VNA. ? Follow-up scheduled with Ortho, pcp. ID will reach out to patient for follow up. ? Please see the Discharge Summary for complete details of any medication changes and additional plans. Radha Pierre, PT - 11/29/2021 1:55 PM EDT Physical Therapy Note Treatment Number PT: 3 Patient profile: Soledad Ramos is a 66 y.o. male EtOH abuse with alcoholic neuropathy and chronic b/l foot wounds (previous osteomyelitis), prior left 4th- 5th amputations, COPD on 2 L O2 at home, opioid use disorder on methadone and mild cognitive impairment presenting for admission from the [facility] (transferred from [facility] ED) at the request of the orthopedic surgery service for necrotizing soft tissue infection of the right foot/great toe. Pt now s/p R great toe amputation (11/18/21). Interval History: no acute changes Social History: Home set-up: pt lives with in a split level home with 2 ZEINAB with no rails and then 8 ZEINAB with 1rail Bathroom Set-up: tub shower with no chair Stairs: 2 ZEINAB with no rails and then 8 ZEINAB with 1 rail Baseline Mobility: independent with ADLs, ambulates with cane, completes IADLs, manages medications, pt sleeps in manual recliner, on 2L home O2 Equipment at home: standard walker, manual w/c, knee scooter, cane Fall history: 1 fall in the past 6 months Precautions/Special Considerations: high fall risk, regular diet, PIV, NWB R LE Mobility and Positioning Recommendations: ?? Pt. to utilize FWW and CGA x 1 for ambulation and transfers with nursing. Second assist as neededfor line management. ?? Please encourage up to chair for meal times as able. ?? Pt encouraged to ambulate frequently with staff, getting into the bathroom for toileting, do not progress ambulation out in hallway at this time in order to preserve skin integrity on L LE which is also high risk for skin breakdown. Subjective: I am anxious to get out of here. Objective: Patient seen for physical therapy and demonstrated the following: Pain: no complaint of pain Vital Signs: on RA, VSS ?? Pt received supine in bed, agreeable to therapy, pts present for session ?? Supine > sit: HOB slightly elevated, supervision for safety ?? Bed > w/c: SPT with FWW and CGA; verbal cues required for R LE NWB status and safety ?? Pt dependently transported to stairs ?? Sit <> stand: CGA up to FWW, requires verbal cues for hand placement, R LE NWB status, and safety; pt receptive to cues intermittently, impulsive and decreased safety awareness; poor eccentriccontrol ?? Pt negotiated up/down 2 steps with L rail ascending and 1 axillary crutch with CGA; max verbal cues required for safety, technique, and NWB status ?? Pt propelled manual w/c 50ft with B UEs and supervision ?? Pt left seated in manual w/c, all needs met, call romero in reach; RN and team updated on pt status Education: Pt and pts educated on current functional status, discharge recommendations, safety/guarding with stair negotiation, safety during functional mobility, importance of maintaining NWB status to optimize healing. All questions were addressed, pt and pts verbalized understanding. Pt will need reinforcement. Assessment: Soledad Ramos was seen today [facility] physical [facility] Pt was pleasant and participated in therapy session well. Pt was able to negotiate up/down 2 steps with 1 rail and 1 axillary crutch with CGA. Pts present for session, all education provided on proper guarding techniques, 2 assist required for stair negotiation for safety at home and to bumpup/down stairs inside the home to reduce fall risk. Pts verbalized understanding of all education and all questions were addressed. Pt and pts verbalized no concerns about going home at this time. Pt is cleared from a PT perspective to discharge home with 02/12 supervision/CGA x 2 on stairs and CGA x 1 for all transfers, needs FWW, follow up with home PT and utilize manual w/c at home for all mobility in the home on first floor set up. Pt will benefit from ongoing therapeutic interventions to achieve therapy goals. Discharge Recommendations: Based on the current findings, Anticipated Discharge Disposition (PT): home with home health, home with supervision (02/12 supervision) when medically ready for hospital discharge. Consult Recommendations: No other consults recommended at this time. Equipment needs: Anticipated Equipment Needs at Discharge (PT): walker, front wheeled Physical Therapy Goals: To be achieved by 11/28/21: ?? 1. Pt. to demonstrate knowledge of safety limitations and precautions and will appropriately requestassistance for functional activities and to mobilize. - NOT MET, recommending / supervision for safety and CGA for functional mobility with FWW 2. Pt. to perform SPT independently using a front wheeled walker. - NOT MET, requires CGA for safety, will have CGA at home for transfers 3. Pt. to ambulate 50 feet independently using a front wheeled walker. - NOT MET, pt able to ambulate 30ft with FWW and CGA, will have CGA at home and manual w/c for safety 4. Pt. to ambulate up/down 2 step/stairs using axillary crutches with CGA. - GOAL MET 11/29/21 5. Pt to ambulate up/down 8 steps/stairs using 1 rail and 1 crutch with CGA. - NOT MET, pt will bumpup/down stairs with supervision/assistance from 6. Family or caregiver to demonstrate understanding of therapeutic interventions to support the careof the patient. - GOAL MET 11/29/21 7. Pt will tolerate progression towards upright with stable vital signs. - GOAL MET 11/29/21 Plan: Therapy Frequency (PT): Monitor. Patient agrees with plan as stated. Time IN / OUT: 2454-4019 Total Minutes, Physical Therapy: 25 Billing Code: Functional activity x 2 Radha Pierre, PT Pager: [phone] Physical Therapy Inpatient Rehabilitation Department Malinda Díaz RN - 11/28/2021 6:22 PM EDT Illness Severity [x] Stable [] Watcher [] Unstable Patient Summary Reason for admission: Rapidly progressing R great toe infection requiring amputation. ETOH withdrawal Relevant PMH: ETOH use, peripheral neuropathy, cirrhosis, L 4th+5th toe amps, methadone dependence, COPD, Hep C, HTN, HLD Significant 24 hour events: 11/28 AM: Pt is AAOx4. VSS. Methadone given for pain with good effect. Pt was insisting to go home today. MD aware and concerns was addressed. Pt was labile. Atarax was given for anxiety. IV potassium given. Pt worked with OT today. Was able to use the walker to the bathroom with r.leg non weight bearing. Breathing treatment was given. Potassium level was drawn a/w on results. IV abx given. All needs attended. involved with pt care. Cyndy Padilla PA - 11/28/2021 5:52 PM EDT Hospital Medicine Daily Progress Note Admit Date: 11/18/2021 Hospital Day 10 days Active Hospital Problems Diagnosis ? ? S/p right great toe amp, I&D, vac 11/18/21 (Diego) ??? Alcohol withdrawal syndrome, with delirium Resolved Hospital Problems No resolved problems to display. 24 Hour Events: - Unable to reach provider at [facility] as they are currently sick and will be able to reach back tomorrow. Discussed with BIT and well go up to 45 mg methadone dose today - Potassium low at 2.9, given IV and p.o. repletion. Repeat pending. - His IV antibiotics may be too cost prohibitive, working on alternatives - C. difficile negative, given dose of Imodium as he has had 3 loose stools today. Also added probiotics - Patient is easily frustrated and has wanted to leave AMA multiple times. He will need psych eval for capacity ROS: Denies GARCIA, fevers, chills, malaise, SOB, chest pain, Nausea, vomiting, constipation, edema, flank pain, dysuria. Physical Exam Vitals Range last 24 hrs Temperature Temp: [36.4 ??C (97.5 ??F)-36.6 ??C (97.9 ??F)] Heart Rate Heart Rate: -- Blood Pressure BP: (137-154)/(78-94) Respiratory Rate Resp: [20-22] SpO2 SpO2: [90 %-96 %] No intake or output data in the 24 hours ending 11/28/21 1752 Patient Vitals for the past 168 hrs: Weight 11/26/21 0923 91.9 kg (202 lb 11.2 oz) BMI: Weight: 91.9 kg (202 lb 11.2 oz) (11/26/21 0923) Estimated Creatinine Clearance: 53.2 mL/min (based on SCr of 1.49 mg/dL). CONSTITUTIONAL: Awake, alert, pleasantly conversant. Not in acute distress. Breathing comfortably onroom air and able to communicate in full sentences. HEENT: Normocephalic, atraumatic. Bilateral sclera anicteric. Oral mucous membranes moist. CHEST: S1S2, RRR, no murmurs, rubs, or clicks. LUNGS: Respiratory effort and expansion good, equal, and symmetric. Bilateral lungs clear to auscultation with no adventitious sounds noted. ABDOMEN: Soft, round, non-tender to palpation. EXTREMITIES: Bilateral upper extremities, warm and well perfused. Bilateral lower extremities with erythema noted bilaterally. R great toe amputation. PT pulses +1, equal, and symmetric. SKIN: warm and dry to touch NEURO: No focal deficit noted. Alert and oriented to person and place PSYCH: Appropriate mood and affect. Studies reviewed in eDH. Remarkable for the following: LABS: Recent Labs 11/28/21 0315 11/26/21 0656 11/23/21 1628 WBC 12.8* 12.0* 13.3* HGB 13.9 13.6* 15.2 HCT 41.6 40.5 45.6 PLATELET 504* 418* 389* Recent Labs 11/28/21 0315 11/26/21 0656 11/23/21 1628 NA 141 143 144 K 2.9* 3.6 3.2* CL 102 109* 105 CO2 BUN 14 8* 6* CREATININE 1.49 1.20 1.28 No results for input(s): AST, ALT, ALKPHOS, BILITOT, BILIDIR in the last 168 hours. Recent Labs 11/28/21 0315 11/26/21 0656 11/23/21 1628 11/22/21 1807 11/22/21 0829 CALCIUM 9.0 8.8 9.2 -- -- PHOS -- -- 4.0 2.9 3.6 No results for input(s): PT, INR, PTT in the last 168 hours. Recent Labs 11/26/21 0656 CK 74 FSBG Trend No results for input(s): POCGLU in the last 72 hours. MICRO: No results for input(s): URINECULTURE in the last 720 hours. Recent Labs 11/18/21 2052 11/23/21 1306 11/25/21 0900 GRAMSTAIN Many Neutrophils seen Many Gram Positive Cocci seen Many Gram Negative Rods seen Results called to and read back by Sd Cedillo 11/18/21 23:16:16 VM * Few Neutrophils seen No microorganisms seen. Results called to and read back by Sd Cedillo 11/18/21 23:17:24 VM Many Neutrophils seen Many Gram Positive Cocci seen Many Gram Negative Rods seen Results called to and read back by Sd Cedillo 11/18/21 23:16:50 VM * No Neutrophils seen. No microorganisms seen. * No Neutrophils seen. No microorganisms seen. * No Neutrophils seen. No microorganisms seen. * No Neutrophils seen. No microorganisms seen. * TISSUECX -- -- Rare Coagulase negative Staphylococcus species One colony of Coagulase negative Staphylococcus species #2 Rare Corynebacterium species Susceptibilities previously reported * No results for input(s): BLOODCX in the last 720 hours. ECG: Recent Labs 11/27/21 1144 DIAGLINE Normal sinus rhythm Septal infarct (cited on or before 20-NOV-2021) Inferior infarct , age undetermined Abnormal ECG When compared with ECG of 20-NOV-2021 12:47, No significant change was found I personally reviewed the tracing and edited the fellows interpretation Confirmed by fellow MD Devorah, Debra ([id number]) on 11/28/2021 11:56:35 AM Confirmed by MD Jacob, Cristian ([id number]) on 11/28/2021 1:18:37 PM QTCCALC 495 VASCULAR: No results for input(s): VBTEXTRPT in the last 720 hours. IMAGING: Results for orders placed or performed during the hospital encounter of 11/18/21 CT Lower Extremity w Contrast Right (Exam End: 11/18/2021 6:31 PM) Impression 1. Necrotizing soft tissue infection involving the first digit and first second web interspace. 2. Ulcer plantar to the first MTP joint with adjacent 1.1 cm abscess. 3. Some fluid around the first MTP joint and tracking within the tendon sheath of the flexor hallucis longus concerning for septic joint and septic tenosynovitis. Findings were discussed with Anatoliy Oliva M.D., by Mario Camp at approximately 2030 hrs. Preliminary report signed by: Mario Camp at 11/18/2021 9:26 PM I have personally reviewed the image(s) and the resident's interpretation and agree with the findings, Wicho Michael MD at 11/19/2021 2:58 AM Thank you for letting us participate in the care of this patient. If you are a health care provider and have any questions regarding this report, please contact the number below. For patients who have questions please contact the health intensive care medicine specialist that requested your imaging first. Electronically signed by: Wicho Michael MD, [facility] ([phone]), at 11/19/2021 2:58 AM XR Foot Min 3 views Right (Generic) (Exam End: 11/23/2021 6:36 PM) Impression Status post transmetatarsal amputation of the right great toe with postsurgical changes. Thank you for letting us participate in the care of this patient. If you are a health care provider and have any questions regarding this report, please contact the number below. For patients who have questions please contact the health intensive care medicine specialist that requested your imaging first. PICC Placement Over 5 Years with Imaging Guidance (IV Team) (Exam End: 11/27/2021 3:45 PM) Impression Right upper extremity PICC line with the catheter tip satisfactorily positioned at the central SVC. I have personally reviewed the image(s) and the resident's interpretation and agree with the findings, Penny Ge MD at 11/27/2021 4:00 PM Thank you for letting us participate in the care of this patient. If you are a health care provider and have any questions regarding this report, please contact the number below. For patients who have questions please contact the health intensive care medicine specialist that requested your imaging first. Inpatient Medications: Scheduled ??? lactobacillus with pectin 1 capsule Oral Daily ??? loperamide 2 mg Oral Once ??? acetaminophen 650 mg Oral Q6H LUIS ??? ertapenem 1 g Intravenous Daily ??? DAPTOmycin 700 mg Intravenous Q24H ??? furosemide 80 mg Oral Daily ??? metoprolol succinate XL 150 mg Oral Daily ??? camphor-methyl salicyl-menthoL Topical (Top) BID ??? lisinopriL 40 mg Oral Daily ??? thiamine 100 mg Oral Daily ??? folic acid 1,000 mcg Oral Daily ??? pantoprazole EC 40 mg Oral BID ??? sodium chloride 0.9 % (flush) 5 mL Intravenous BID ??? enoxaparin 40 mg Subcutaneous Nightly ??? ipratropium-albuteroL 3 mL Nebulization Q6H While awake ??? nicotine 1 patch Transdermal Daily And ??? Patch Verification 1 patch Transdermal BID And ??? nicotine 1 patch Transdermal Daily ??? busPIRone 15 mg Oral BID ??? gabapentin 600 mg Oral TID ??? mirtazapine 30 mg Oral Nightly Continuous infusions: PRN: hydrALAZINE, polyethylene glycoL (MIRALAX) oral powder, hydrOXYzine, HYDROmorphone OR HYDROmorphone OR HYDROmorphone, cyclobenzaprine, midazolam (PF), sodium chloride 0.9 % (flush), lidocaine, melatonin, albuteroL Assessment: Soledad Ramos??is a 66 y.o.??male??with hx of EtOH abuse with alcoholic neuropathy and chronic b/l foot wounds (previous osteomyelitis), prior left 4th- 5th amputations, COPD on 2 L O2 at home, opioid use disorder on methadone and mild cognitive impairment presented 11/18/21 for admission to [facility] (transferred from [facility] ED) at the request of the orthopedic surgery service for necrotizing soft tissue infection of the right foot/great toe. ?? 11/28: Resuming methadone - 45 mg total dose today. Cont ertapenem and daptomycin, trying to find a more affordable plan for him Plan: #Necrotizing soft tissue infection s/p RIGHT 1st toe amp on 11/18/21 - CT right LE consistent with necrotizing soft tissue infection - Ortho consulted and following - 11/18 guillotine partial first ray resection right foot with wound VAC - 11/23 right great toe transmetatarsal amputation with wound VAC. 3 bone cultures were obtained - 11/25 debridement with closure, no wound vac. Resection site culture obtained - Wound cx 11/18 with with Proteus mirabilis (resistant only to tetracycline and tigecycline), strep milleri and Staph aureus and anaerobic culture grew many bacteroides species - Initially on zosyn, clindamycin, vancomycin, D/C 11/23 and changed to ceftriaxone and flagyl per ID. - Bone cultures from 11/23 and Tissue cultures 11/25 (confimed with Ortho to be bone along with tissue) grew 2 different coag negative staph susceptible to FQ, gentamicin, and vancomycin. Also grew rare Corynebacterium species - Discussed with ID given new culture results. Recommended vancomycin, however then changed him to daptomycin 700 mg and ertapenem 1 g every 24 hours for total 6-week, with EOT 01/06 - PICC placed 11/27 - NWB to RLE - PT/OT - recommending home with home health and supervision ?? #opioid use disorder #EtOH abuse #peripheral neuropathy #post-op pain control #Acute alcohol withdrawal-suspected #Prolonged QTc - Call patient's clinic ([facility], ) in AM to confirm 90 mg dose of methadone daily. Attempted to call today but closes at 12:30pm -dose confirmed; consider resumption following acute pain phase - hydromorphone SC every 3 hours PRN post-operatively with dose range for severity - acetaminophen 650 mg every 6 hours prn - home gabapentin 600 mg TID - Patient scoring on CIWA-low dose ativan transitioned to regular ativan scale -transitioned to phenobarb 11/20 -QTC prolonged-518, avoid prolonging agents with acute agitation - Resumed methadone on 11/27. Since methadone had been held since 11/18 and per pharmacy protocol, would only start at 15 mg twice daily as we were unable to reach his home methadone clinic for a treatment plan. Also schedule his Tylenol for pain. -Repeat QTC of 495. We will keep patient on telemetry as we resumed methadone #Hypokalemia - Replete and trend - Monitor on tele #COPD on 2L NC at baseline #tobacco use- current 1 pack per day smoker - nicotine patch 21 mg daily - duonebs every 6 hours while awake - PRN albuterol - NC O2 titrate to 90% SpO2 - Patient ran out of oxygen about a month or so ago. CM made aware #HTN - Resume home lisinopril 40mg daily - reduce home metop 150 mg daily to metop tartrate 25 mg every 6 hours, increased to home dose 11/24 given persistent HTN requiring PRNs - 11/26 Resumed home furosemide - hydral as needed for SBP >180 ? #home medications - continue home pantoprazole 40 mg BID - continue home buspirone 30 mg BID - continue nightly mirtazapine 30 mg?? IV access/ MIVF PIV Tubes/ Drains Wound Vac DVT prophylaxis Lovenox PT/OT/PACKAGE LINE RELIEF OPERATOR ordered Wound care Per surgical team at this time Anticipated Disposition home with home health, home with supervision (pending progress made while hospitalized) Team Pager ( Coverage 02/12): [phone] Family Update At bedside 11/28 PCP LISA Levi PA 11/28/2021 Elli Obrien RN - 11/28/2021 12:17 PM EDT Office of Care Management (OCM /Frenchmanger (CM)Discharge planning ) Service :Med Pager #[phone] e-DH reviewed. Report received from [facility] Patient plan of care discussed with Team and Nursing to assessment for continuing care and dischargeneeds. [facility]: 10 DECISION MAKER: Attempt Cardiopulmonary Resuscitation - Inpatient, <no information> Ongoing Issues: CM spoke with she states oxygen is at home and all tanks are full .She was instructed to bring a tank at time of discharge. NELC notified of ABX need and teach ( will need to be taught ) OPAt notified of impending discharge and OPAT order is in. Plan: CM will continue to follow for coordination of care and to facilitate discharge planning. Elli Obrien RN Pager # [phone] Grace Montero OT - 11/28/2021 11:31 AM EDT Occupational Therapy Treatment Note Treatment Number OT: 2 Patient Dx: Soledad Ramos??is a 66 y.o.??male??s/p??right??great toe amputation on 11/23/21 and debridement and reamputation through first metatarsal with closure on 11/25.?? Social History: Information obtained through pt report and chart review. ?? Home set up: pt lives with his in a split level home with 3 ZEINAB; information conflicting with info from PT eval. Pt states alternate entrance includes 8 steps up to the deck but he does not usethat entrance. Bathroom has a tub/shower; no DME. ?? PLOF: Pt reports independence with BADLs and manages all IADL. Pt is mostly sedentary and sleeps in a recliner in the bedroom. Per pt report, he does not use an AD for ambulation. Son, Daughter and are all available to assist pt at home. ?? DME: cane, knee scooter, standard walker, manual w/c ?? Falls: pt denies falls Precautions/Special Considerations: at risk to fall, NWB RLE, regular diet Interval History: increased aggression d/t not wanting to use bedside commode. LOB documented while attempting to ambulate to the bathroom with 2 assist. Subjective: Everyone here has been really good to me. I really appreciate that. O: Patient seen for skilled OT treatment. Pt received in bed, awake, and visiting with his . Pt demonstrated the following: Cognition: ?? Alert and oriented ?? Reeducation needed to recall importance of maintaining NWB of RLE; pt verbalized understanding. ?? Pleasant and cooperative ?? Motivated towards regaining his strength and independence. ADL: ?? Bathing: setup assist UB ?? Dressing: Independently donned shorts, per pt report. Independently donned L shoe in long sit. ?? Toileting: independently using urinal. Pt reports independence with BM hygiene. Functional Mobility: ?? Supine to sit: independent with HOB elevated ?? Sit to stand: CGA from bed with 1 cue for safety d/t pt attempting to stand without assist/supervision and 1 cue to maintain NWB. Pt performed 3 additional sit to stands from chair to FWW with supervision. ?? Ambulation: CGA with FWW x 35 ft; no LOB observed and pt able to maintain NWB on RLE. Brief standing rest break needed after ~ 15 ft d/t fatigue; vc needed to initiate rest break. L shoe donned to improve support and stability during ambulation and to discourage WB through RLE. Vitals/Endurance: appeared stable on RA. Pt declining to wear O2/HR sensor. in to speak with pt. Pain: pt denies pain Education: Pt/family/caregiver education ongoing regarding: Role of occupational therapy/rehabilitation, Transfers, ADL, Safety, Precautions/Protocol, Functional Mobility, Activity pacing/Energy conservation, Recommendations and Discharge planning. Staff Communication: Patient status, treatment, and mobility recommendations discussed with nursing/other staff. ASSESSMENT: Pt was seen for OT treatment for continuation of POC. Pt demonstrated improved independence with functional mobility and compliance with WB precautions with minimal cues. Pt required education on the importance of maintaining RLE precautions and 1 cue for compliance. Pt was able to ambulate ~ 30 ft with a FWW and CGA without LOB. Recommend pt wear his sneaker while ambulating to improve stability and NWB on RLE during ambulation to the bathroom. Pt will benefit from ongoing therapeutic interventions to achieve pt's and therapy goals Anticipated Discharge Disposition (OT): home with home health, home with supervision Equipment Recommendations: FWW, shower chair Daily schedule / Staff Recommendations: ?? Assist pt to the bathroom for toileting with CGA, FWW and shoe on L foot. ?? Reorient pt multiple times a day as needed ?? Assist pt OOB to chair for meals ?? Promote wellbeing through engagement in leisure and relaxation activities ?? Encourage good sleep hygiene with appropriate sleep/wake cycles ?? Utilize upright chair position using bed features or transfer to recliner chair as appropriate ?? Encourage participation in ADL's and provide physical assist only as needed Occupational Therapy Goals: To be achieved by 12/08/21. PROGRESSING 1. Pt will ambulate to the bathroom with supervision 2. Pt will demonstrate compliance with WB precautions during all mobility without cues 3. Pt will wash/dress his LB with mod I using AE as needed 4. Pt will demonstrate safety awareness during ADLs without cues 5. Pt will perform all toileting tasks independently, bathroom level Therapy Frequency (OT): 1-2 more times Total Minutes, Occupational Therapy: 34 (SCHM x 2) Pager: [phone] Grace Montero OT Occupational Therapy Rehabilitation Department Claudia Long RN - 11/28/2021 6:46 AM EDT Illness Severity [x] Stable [] Watcher [] Unstable Patient Summary Reason for admission: Rapidly progressing R great toe infection requiring amputation. ETOH withdrawal Relevant PMH: ETOH use, peripheral neuropathy, cirrhosis, L 4th+5th toe amps, methadone dependence, COPD, Hep C, HTN, HLD Significant 24 hour events: 11/27PM: Transferred from [facility]. Report taken from Bridgette at 2340. A/O x4, afebrile, VSS on RA. Right foot pain 5-7/10, scheduled Tylenol x2 and PRN Dilaudid x1 given with fair effect. Right foot wrapped in jude bandage: C/D/I. Tele continued: NSR. Critical potassium 2.9; MD notified. IV & PO KClordered and given. Pt became very aggressive with staff at 0615-- swearing, verbally abusive-- security was called; arrived at bedside spoke with pt. Team was radio paged and secured chat as well. Pt wants to leave AMA. Reason for aggression-- pt does not want to use the bedside commode-- he wants to walk to bathroom-- Unsafe---- Earlier pt almost fell on way to bathroom with Ax2 w/ FWW. This RN and DEALERSHIP MANAGER caught him before he fell over. Chemo plan & supportive medication: n/a Baseline Weight: na/ Most recent weight: Weight: 91.9 kg (202 lb 11.2 oz) (11/26/21 0923) Action List IV Abx: Daptomycin & Ertapenem. Pain management-Scheduled Tylenol, Methadone.& Gabapentin. PRN Flexeril, Dilaudid- scale. Wound care-Right foot--big toe RLE: NWB Telemetry Consults: Infectious Disease, OPAT Discharge Plan: Possibly 11/28/21 Home meds in Rx [] Belongings in safe [] Carissa Cordova RN - 11/27/2021 6:49 PM EDT OUTCOME EVALUATION NOTE: OUTCOME SUMMARY: I assumed care for this patient from 1270-2812. Patient ambulating to bathroom with 1 assist and FWW. Dressing remains c/d/i. PICC placed and patient has been tolerating new ABX regimen. Patient complaints of cramping to his right side (states he has at home sometimes and ambulates to relieve this pain). PA notified and plan for flexeril to be ordered. Voiding without any issues. No events reported to RN by telemetry. PLAN MOVING FORWARD: -Pain Control -Mobilize -abxs -d/c planning INDIVIDUALIZED FALL PREVENTION: Assistance: -1 assist with walker Supervision: -Hands-on for all transfers and ambulation Surveillance: -Bed Alarm/Chair Alarm -Purposeful Rounding -masimo/tele CPG OUTCOME EVALUATION: Cyndy Padilla PA - 11/27/2021 5:50 PM EDT Hospital Medicine Daily Progress Note Admit Date: 11/18/2021 Hospital Day 9 days Active Hospital Problems Diagnosis ? ? S/p right great toe amp, I&D, vac 11/18/21 (Diego) ??? Alcohol withdrawal syndrome, with delirium Resolved Hospital Problems No resolved problems to display. 24 Hour Events: - Discussed with ID given new culture results. Recommended vancomycin, however then changed him to daptomycin 700 mg and ertapenem 1 g every 24 hours for total 6-week, with EOT 01/06 - Patient was visibly upset and wanted to be back on his methadone. However methadone had been held since 11/18 and per pharmacy protocol, would only start at 15 mg twice daily as we were unable to reach his home methadone clinic for a treatment plan. Also schedule his Tylenol for pain. - His QTC was prolonged at 518 recently, repeat QTC of 495. We will keep patient on telemetry as we resumed methadone - Discontinue scheduled Colace/senna due to loose stools. Added as needed MiraLAX. ROS: Right foot pain at a 3 today, not really bothering him anymore. +loose stools. Denies GARCIA, fevers, chills, malaise, SOB, chest pain, Nausea, vomiting, constipation, edema, flank pain, dysuria. Physical Exam Vitals Range last 24 hrs Temperature Temp: [36.5 ??C (97.7 ??F)-37.3 ??C (99.1 ??F)] Heart Rate Heart Rate: -- Blood Pressure BP: (134-176)/(85-101) Respiratory Rate Resp: [16-24] SpO2 SpO2: [95 %-99 %] Intake/Output Summary (Last 24 hours) at 11/27/2021 1750 Last data filed at 11/27/2021 1230 Gross per 24 hour Intake 2165 ml Output 225 ml Net 1940 ml Patient Vitals for the past 168 hrs: Weight 11/26/21 0923 91.9 kg (202 lb 11.2 oz) BMI: Weight: 91.9 kg (202 lb 11.2 oz) (11/26/21 0923) Estimated Creatinine Clearance: 66 mL/min (based on SCr of 1.2 mg/dL). CONSTITUTIONAL: Awake, alert, pleasantly conversant. Not in acute distress. Breathing comfortably onroom air and able to communicate in full sentences. HEENT: Normocephalic, atraumatic. Bilateral sclera anicteric. Oral mucous membranes moist. CHEST: S1S2, RRR, no murmurs, rubs, or clicks. LUNGS: Respiratory effort and expansion good, equal, and symmetric. Bilateral lungs clear to auscultation with no adventitious sounds noted. ABDOMEN: Soft, round, non-tender to palpation. EXTREMITIES: Bilateral upper extremities, warm and well perfused. Bilateral lower extremities with erythema noted bilaterally. R great toe amputation. PT pulses +1, equal, and symmetric. SKIN: warm and dry to touch NEURO: No focal deficit noted. Alert and oriented to person and place PSYCH: Appropriate mood and affect. Studies reviewed in eDH. Remarkable for the following: LABS: Recent Labs 11/26/21 0656 11/23/21 1628 11/21/21 0838 WBC 12.0* 13.3* 8.2 HGB 13.6* 15.2 13.2* HCT 40.5 45.6 38.9* PLATELET 418* 389* 285 Recent Labs 11/26/21 0656 11/23/21 1628 11/21/21 0838 NA 143 144 141 K 3.6 3.2* 3.3* CL 109* 105 104 CO2 22 23 25 BUN 8* 6* 6* CREATININE 1.20 1.28 0.93 Recent Labs 11/21/21 0838 AST 13 ALT 10 ALKPHOS 76 BILITOT 0.4 BILIDIR 0.1 Recent Labs 11/26/21 0656 11/23/21 1628 11/22/21 1807 11/22/21 0829 11/21/21 1846 11/21/21 0838 CALCIUM 8.8 9.2 -- -- -- 8.8 PHOS -- 4.0 2.9 3.6 < > 3.5 < > = values in this interval not displayed. No results for input(s): PT, INR, PTT in the last 168 hours. Recent Labs 11/26/21 0656 CK 74 FSBG Trend No results for input(s): POCGLU in the last 72 hours. MICRO: No results for input(s): URINECULTURE in the last 720 hours. Recent Labs 11/18/21 2052 11/23/21 1306 11/25/21 0900 GRAMSTAIN Many Neutrophils seen Many Gram Positive Cocci seen Many Gram Negative Rods seen Results called to and read back by Sd Cedillo 11/18/21 23:16:16 VM * Few Neutrophils seen No microorganisms seen. Results called to and read back by Sd Cedillo 11/18/21 23:17:24 VM Many Neutrophils seen Many Gram Positive Cocci seen Many Gram Negative Rods seen Results called to and read back by Sd Cedillo 11/18/21 23:16:50 VM * No Neutrophils seen. No microorganisms seen. * No Neutrophils seen. No microorganisms seen. * No Neutrophils seen. No microorganisms seen. * No Neutrophils seen. No microorganisms seen. * TISSUECX -- -- Rare Coagulase negative Staphylococcus species : Susceptibilities previously reported Coagulase negative Staphylococcus species #2 : Susceptibility testing in progress * No results for input(s): BLOODCX in the last 720 hours. ECG: Recent Labs 11/27/21 1144 DIAGLINE Normal sinus rhythm Septal infarct (cited on or before 20-NOV-2021) Inferior infarct , age undetermined Abnormal ECG When compared with ECG of 20-NOV-2021 12:47, No significant change was found QTCCALC 495 VASCULAR: No results for input(s): VBTEXTRPT in the last 720 hours. IMAGING: Results for orders placed or performed during the hospital encounter of 11/18/21 CT Lower Extremity w Contrast Right (Exam End: 11/18/2021 6:31 PM) Impression 1. Necrotizing soft tissue infection involving the first digit and first second web interspace. 2. Ulcer plantar to the first MTP joint with adjacent 1.1 cm abscess. 3. Some fluid around the first MTP joint and tracking within the tendon sheath of the flexor hallucis longus concerning for septic joint and septic tenosynovitis. Findings were discussed with Anatoliy Oliva M.D., by Mario Camp at approximately 2030 hrs. Preliminary report signed by: Mario Camp at 11/18/2021 9:26 PM I have personally reviewed the image(s) and the resident's interpretation and agree with the findings, Wicho Michael MD at 11/19/2021 2:58 AM Thank you for letting us participate in the care of this patient. If you are a health care provider and have any questions regarding this report, please contact the number below. For patients who have questions please contact the health intensive care medicine specialist that requested your imaging first. Electronically signed by: Wicho Michael MD, [facility] ([phone]), at 11/19/2021 2:58 AM XR Foot Min 3 views Right (Generic) (Exam End: 11/23/2021 6:36 PM) Impression Status post transmetatarsal amputation of the right great toe with postsurgical changes. Thank you for letting us participate in the care of this patient. If you are a health care provider and have any questions regarding this report, please contact the number below. For patients who have questions please contact the health intensive care medicine specialist that requested your imaging first. PICC Placement Over 5 Years with Imaging Guidance (IV Team) (Exam End: 11/27/2021 3:45 PM) Impression Right upper extremity PICC line with the catheter tip satisfactorily positioned at the central SVC. I have personally reviewed the image(s) and the resident's interpretation and agree with the findings, Penny Ge MD at 11/27/2021 4:00 PM Thank you for letting us participate in the care of this patient. If you are a health care provider and have any questions regarding this report, please contact the number below. For patients who have questions please contact the health intensive care medicine specialist that requested your imaging first. Inpatient Medications: Scheduled ??? acetaminophen 650 mg Oral Q6H LUIS ??? ertapenem 1 g Intravenous Daily ??? DAPTOmycin 700 mg Intravenous Q24H ??? methadone (Methadose) oral liquid 15 mg Oral BID ??? furosemide 80 mg Oral Daily ??? metoprolol succinate XL 150 mg Oral Daily ??? camphor-methyl salicyl-menthoL Topical (Top) BID ??? lisinopriL 40 mg Oral Daily ??? thiamine 100 mg Oral Daily ??? folic acid 1,000 mcg Oral Daily ??? pantoprazole EC 40 mg Oral BID ??? sodium chloride 0.9 % (flush) 5 mL Intravenous BID ??? enoxaparin 40 mg Subcutaneous Nightly ??? ipratropium-albuteroL 3 mL Nebulization Q6H While awake ??? nicotine 1 patch Transdermal Daily And ??? Patch Verification 1 patch Transdermal BID And ??? nicotine 1 patch Transdermal Daily ??? busPIRone 15 mg Oral BID ??? gabapentin 600 mg Oral TID ??? mirtazapine 30 mg Oral Nightly Continuous infusions: PRN: polyethylene glycoL (MIRALAX) oral powder, hydrOXYzine, HYDROmorphone OR HYDROmorphone OR HYDROmorphone, midazolam (PF), sodium chloride 0.9 % (flush), lidocaine, melatonin, albuteroL Assessment: Soledad Ramos??is a 66 y.o.??male??with hx of EtOH abuse with alcoholic neuropathy and chronic b/l foot wounds (previous osteomyelitis), prior left 4th- 5th amputations, COPD on 2 L O2 at home, opioid use disorder on methadone and mild cognitive impairment presented 11/18/21 for admission to [facility] (transferred from [facility] ED) at the request of the orthopedic surgery service for necrotizing soft tissue infection of the right foot/great toe. ?? 11/27: Resuming methadone. Started ertapenem and daptomycin Plan: #Necrotizing soft tissue infection s/p RIGHT 1st toe amp on 11/18/21 - CT right LE consistent with necrotizing soft tissue infection - Ortho consulted and following - 11/18 guillotine partial first ray resection right foot with wound VAC - 11/23 right great toe transmetatarsal amputation with wound VAC. 3 bone cultures were obtained - 11/25 debridement with closure, no wound vac. Resection site culture obtained - Wound cx 11/18 with with Proteus mirabilis (resistant only to tetracycline and tigecycline), strep milleri and Staph aureus and anaerobic culture grew many bacteroides species - Initially on zosyn, clindamycin, vancomycin, D/C 11/23 and changed to ceftriaxone and flagyl per ID. - Bone cultures from 11/23 and Tissue cultures 11/25 (confimed with Ortho to be bone along with tissue) grew 2 different coag negative staph susceptible to FQ, gentamicin, and vancomycin. Also grew rare Corynebacterium species - Discussed with ID given new culture results. Recommended vancomycin, however then changed him to daptomycin 700 mg and ertapenem 1 g every 24 hours for total 6-week, with EOT 01/06 - PICC placed 11/27 - NWB to RLE - PT/OT -recommending home with home health and supervision ?? #opioid use disorder #EtOH abuse #peripheral neuropathy #post-op pain control #Acute alcohol withdrawal-suspected #Prolonged QTc - Call patient's clinic ([facility], ) in AM to confirm 90 mg dose of methadone daily. Attempted to call today but closes at 12:30pm -dose confirmed; consider resumption following acute pain phase - hydromorphone SC every 3 hours PRN post-operatively with dose range for severity - acetaminophen 650 mg every 6 hours prn - home gabapentin 600 mg TID - Patient scoring on CIWA-low dose ativan transitioned to regular ativan scale -transitioned to phenobarb 11/20 -QTC prolonged-518, avoid prolonging agents with acute agitation - Resumed methadone on 11/27. Since methadone had been held since 11/18 and per pharmacy protocol, would only start at 15 mg twice daily as we were unable to reach his home methadone clinic for a treatment plan. Also schedule his Tylenol for pain. -Repeat QTC of 495. We will keep patient on telemetry as we resumed methadone #COPD on 2L NC at baseline #tobacco use- current 1 pack per day smoker - nicotine patch 21 mg daily - duonebs every 6 hours while awake - PRN albuterol - NC O2 titrate to 90% SpO2 - Patient ran out of oxygen about a month or so ago. CM made aware #HTN - Resume home lisinopril 40mg daily - reduce home metop 150 mg daily to metop tartrate 25 mg every 6 hours, increased to home dose 11/24 given persistent HTN requiring PRNs - 11/26 Resumed home furosemide - hydral as needed for SBP >180 ? #home medications - continue home pantoprazole 40 mg BID - continue home buspirone 30 mg BID - continue nightly mirtazapine 30 mg?? IV access/ MIVF PIV Tubes/ Drains Wound Vac DVT prophylaxis Lovenox PT/OT/PACKAGE LINE RELIEF OPERATOR ordered Wound care Per surgical team at this time Anticipated Disposition home with home health, home with supervision (pending progress made while hospitalized) Team Pager ( Coverage 02/12): [phone] Family Update At bedside 11/25 PCP LISA Levi PA 11/27/2021 Radha Pierre PT - 11/27/2021 3:29 PM EDT Physical Therapy Note Treatment Number PT: 2 Patient profile: Soledad Ramos is a 66 y.o. male EtOH abuse with alcoholic neuropathy and chronic b/l foot wounds (previous osteomyelitis), prior left 4th- 5th amputations, COPD on 2 L O2 at home, opioid use disorder on methadone and mild cognitive impairment presenting for admission from the [facility] (transferred from [facility] ED) at the request of the orthopedic surgery service for necrotizing soft tissue infection of the right foot/great toe. Pt now s/p R great toe amputation (11/18/21). Interval History: I & D for further R first toe amputation (11/25/21), still NWB on R LE, wound vac removed Social History: Home set-up: pt lives with in a split level home with 2 ZEINAB with no rails and then 8 ZEINAB with 1rail Bathroom Set-up: tub shower with no chair Stairs: 2 ZEINAB with no rails and then 8 ZEINAB with 1 rail Baseline Mobility: independent with ADLs, ambulates with cane, completes IADLs, manages medications, pt sleeps in manual recliner, on 2L home O2 Equipment at home: standard walker, manual w/c, knee scooter, cane Fall history: 1 fall in the past 6 months Precautions/Special Considerations: high fall risk, regular diet, PIV, NWB R LE Mobility and Positioning Recommendations: ?? Pt. to utilize FWW and CGA x 1 for ambulation and transfers with nursing. Second assist as neededfor line management. ?? Please encourage up to chair for meal times as able. ?? Pt encouraged to ambulate frequently with staff, getting into the bathroom for toileting, do not progress ambulation out in hallway at this time in order to preserve skin integrity on L LE which is also high risk for skin breakdown. Subjective: They already took my big toe what else are they going to take from me. Objective: Patient seen for physical therapy and demonstrated the following: Pain: pt reported tolerable pain at R toe amputation site; pain did not limit therapy session Vital Signs: on RA, VSS ?? Pt received supine in bed, agreeable to therapy, pts present for session ?? Supine > sit: HOB slightly elevated, supervision for safety ?? Sit <> stand: CGA-[place] up to FWW, requires verbal cues for hand placement, R LE NWB status,and safety; pt receptive to cues intermittently, impulsive and decreased safety awareness; poor eccentric control ?? Pt ambulated 30ft with FWW and CGA, pt able to maintain NWB status while walking, poor eccentric control on L LE, mild unsteady gait however no overt LOB ?? Sit > supine: HOB slightly elevated, supervision for safety ?? Supine > sit: HOB slightly elevated, supervision for safety ?? Sit > stand: CGA up to FWW, requires verbal cues for hand placement, R LE NWB status, and safety ?? Pt ambulated to bathroom with FWW and CGA ?? Stand > sit on toilet: poor eccentric control, does not maintain NWB status despite cues, pt unable to void ?? Sit > stand: does not maintain NWB status despite cues, CGA up to FWW ?? Pt ambulated 20ft to stretcher outside room with FWW and CGA, verbal cues required for safety andtechnique ?? Sit > supine: supervision ?? Pt left with transport on stretcher, all needs met; RN and team updated on pt status Education: Pt and pts educated on current functional status, discharge recommendations, ambulance transport in home d/t concern for safety with stair negotiation, safety during functional mobility, importance of maintaining NWB status to optimize healing. All questions were addressed, pt and pts verbalized understanding. Pt will need reinforcement. Assessment: Soledad Ramos was seen today for physical therapy treatment session for continuation ofPOC. Pt was pleasant and participated in therapy session well. Pt was able to ambulate 30ft with FWWand CGA, able to maintain NWB status during ambulation with verbal cues. Pt is inconsistent with maintaining NWB status during sit <> stand despite cues d/t decreased safety awareness and impulsivity. Will discuss with ortho to determine how long NWB status is and if toe off loading shoe should be trialed when able once dressing size is decreased for protection while still enforcing NWB status.Pt has 2 stairs with no rails and an additional 8 ZEINAB with 1 rail to get to first floor set-up. Suspect pt is going to have increased difficulty on the stairs and demonstrates poor eccentric control during ambulation and will put L LE at increased risk for skin breakdown on stair negotiation. Discussing with CM recommendation to get ambulance transport home for the safety of the pt. At this time recommend discharge home when medically ready with / supervision (pending ability to do the stairs and/or get ambulance transport home), needs FWW and crutches, and follow up with home PT. Pt and pts verbalized understanding of plan and all questions were addressed. Pt will benefit from ongoing therapeutic interventions to achieve therapy goals. Discharge Recommendations: Based on the current findings, Anticipated Discharge Disposition (PT): home with home health when medically ready for hospital discharge. Consult Recommendations: No other consults recommended at this time. Equipment needs: Anticipated Equipment Needs at Discharge (PT): walker, front wheeled, crutches Physical Therapy Goals: To be achieved by 11/28/21: ONGOING, unless otherwise stated ?? 1. Pt. to demonstrate knowledge of safety limitations and precautions and will appropriately requestassistance for functional activities and to mobilize. 2. Pt. to perform SPT independently using a front wheeled walker. 3. Pt. to ambulate 50 feet independently using a front wheeled walker. 4. Pt. to ambulate up/down 2 step/stairs using axillary crutches with CGA. 5. Pt to ambulate up/down 8 steps/stairs using 1 rail and 1 crutch with CGA. 6. Family or caregiver to demonstrate understanding of therapeutic interventions to support the careof the patient. 7. Pt will tolerate progression towards upright with stable vital signs. Plan: Therapy Frequency (PT): 1-2 more times for as outlined in initial evaluation. Patient agrees with plan as stated. Time IN / OUT: 5780-0072 Total Minutes, Physical Therapy: 29 Billing Code: Functional activity x 2 Radha Pierre, PT Pager: [phone] Physical Therapy Inpatient Rehabilitation Department Judit Spencer DO - 11/27/2021 1:46 PM EDT OPAT INTAKE: Diagnosis: Cellulitis and Osteomyelitis, Antibiotic Type: IV, Organism(s): Coagulase negative staph and Corynebacterium species, Bacteroides species, Proteus mirabilis. Antibiotic(s) being taken: Daptomycin (700mg q24h) and Ertapenem (1g q24h) With a start date of 11/25/2021, and anticipated end date of 01/06/2022. Desired labs: CBC w/diff, CMP, CPK and CRP. Lab frequency: Weekly Other: Desired timing of end of therapy appointment: Week of: 12/17/2021. Other speciality appointments to coordinate with: Yes Which speciality?: orthopedics Dialysis patient?: No Imaging needed?: No Preferred provider for end of therapy visit: Donal Spain On 11/27, I spent 30 minutes in a [id number]-[id number]-td-face encounter arranging the patient to receive home Intravenous antibiotics and follow up evaluation in the ID clinic along with laboratory and, if necessary, radiographic testing. I discussed in detail with the primary inpatient team, case management and o utpatient parenteral antimicrobial therapy (OPAT) staff the plan and arrangements for home intravenous antibiotics and follow up testing. Luz Wright - 11/27/2021 1:26 PM EDT Nutrition Services Note - Low Nutrition Acuity Soledad Ramos is a 66 y.o. male Reason for intervention: hospital day 9 Nutrition Plan: Continue current diet. Encourage good PO intake. Ensure supplement 2x/day. Folic acid, thiamine noted. Lasix noted. Monitor weight. Patient screened for hospital length of stay. Data Analytics Specialist connected with patient and over the phone.Per patient, his appetite isn't great today. On good days, patient reports he eats 100% of the food he orders at meal times. PO intake appears to be variable per documentation in flow sheets. Patient is agreeable to receive Ensure drinks 2x/day to promote PO intake. Nutrition services to continue to monitor and follow up. Active Orders Diet Low Sodium diet 2 GM NA Frequency: Effective Now Number of Occurrences: Until Specified Admit Weight: 98.25 kg Estimated body mass index is 29.93 kg/m?? as calculated from the following: Height as of this encounter: 175.3 cm (5' 9). Weight as of this encounter: 91.9 kg (202 lb 11.2 oz). Wt Readings from Last 5 Encounters: 11/26/21 91.9 kg (202 lb 11.2 oz) 08/14/21 95.5 kg (210 lb 9.6 oz) 08/10/20 90.7 kg (200 lb) 04/21/20 98.4 kg (216 lb 14.4 oz) 04/17/20 90.7 kg (200 lb) Weight loss: not clinically significant Appetite: Variable - Fair (25%-50%) Food allergies:no known food allergies - per chart Chewing/Swallowing difficulty: none Nausea/Vomiting: no nausea and no vomiting Last Bowel Movement: 11/26/21 Patient education / questions: all nutrition related questions answered at this time Luz Wright, DT [phone] Elli Obrien RN - 11/27/2021 1:01 PM EDT The Patient has been provided a list of Home Health Agencies/DME vendors which serve their preferredgeographic area. A letter describing our affiliations was reviewed with them and they were educated about their right to choose where referrals are placed. Provided patient with [facility] Star Quality Rating for Home care Patient requests referral to : [facility] and [address] [address] [place], [place] or [facility] Intake office: tel: [phone] [place], [place] Office [place], [place] Office Expected date of discharge: 11/30/2021 Referral routed to the Validation Consultant for matching with agency/vendor and to provide any required information. Judit Spencer, - 11/27/2021 10:06 AM EDT Images from the original note were not included. INFECTIOUS DISEASE FELLOW PROGRESS NOTE Infectious process: CoNS (oxa resistant) and Corynebacterium osteomyelitis Antimicrobials: Ceftriaxone and metronidazole We last saw Mr. Ramos in consult on 11/23 after he underwent guillotine partial first ray resection on 11/18 with orthopedics. The toe itself was sent for culture, which was polymicrobial, but the proximal bone had no growth other than rare Bacteroides, but that bone had since been further resected. We planned to treat him for a total of 14 days for a skin and soft tissue infection as long as nothing further grew on the bone, which later grew two species of CoNS, both oxa resistant, as well as Corynebacterium. Ortho took the patient back to the OR on 11/25 where he underwent had further resection of the 1st metatarsal another 1cm and resection of tissue down to healthy bleeding tissue. There was noted to be no purulence. Culture taken that day showed no neutrophils or microorganisms on gram stain, with result of again two species of CoNS, pending susceptibility results. The culture is marked as tissue, but is reported by orthopedics to be bone mixed with some tissue. S: Patient is currently in significant amounts of pain - he reports that he normally gets Methadone from [facility] and has for years, takes 90mg daily. He denies any fever or chills, no pain to hisright foot. Don reports that diarrhea started last night, has not had associated abdominal pain. He's gone about 3-4 times since last night and thinks that it's because he's not taking his methadone. O: Vitals Flowsheet Row ED to Hosp-Admission (Current) from 11/18/2021 in 1 [facility] Weight 91.9 kg (202 lb 11.2 oz) Height 175.3 cm (5' 9) Temp 36.5 ??C (97.7 ??F) Temp src Oral Heart Rate 85 Heart Rate from SpO2 120 bpm Heart Rate Source Monitor Resp 18 BP 135/93 BP Location Right arm Patient Position Sitting SpO2 97 % Tearful, appropriately interactive Right foot with post-surgical dressing clean and dry, 3 toes on the left foot. Rest of exam deferred due to patient's emotional distress Labs reviewed and significant for WBC 12, hgb 13.6, plt 418, cr 1.20 No recent imaging studies. Microbiology: 11/18 toe abscess culture: GPC and GNR on gram stain; Proteus mirabilis (S - ceftriaxone, FQ, PCN), Strep milleri, MSSA, and Bacteroides fragilis 11/18 right foot second toe proximal metatarsal bone culture: few neutrophils and no microorganisms on gram stain; rare Bacteroides species on culture 11/23 right foot proximal metatarsal bone culture: No neutrophils or microorganisms on gram stain; rare Corynebacterium species, CoNS 2 different species (both R - oxa; different sensitivities with tetracycline, bactrim) 11/25 right foot proximal resection site (sounds to be both bone and tissue): no neutrophils or microorgansims, CoNS 2 different species Assessment and Plan: Soledad Ramos is a 66 y.o. male with a history of DMII complicated by neuropathy and bilateral diabetic foot ulcers, hepatitis C s/p Epclusa 2016 and alcohol abuse with resulting cirrhosis, history ofprior osteomyelitis (01/2019 left 5th toe ray amputation, 02/2020 left 4th ray amputation), who was admitted to [facility] on 11/18 from [facility] with a R great toe necrotizing soft tissue infection, now s/p washout and guillotine great toe ray amputation on 11/23 (bone cultures sent from proximal bonebut then continued to resect further bone) grew oxa-resistant CoNS, Corynebacterium, and Bacteroidesfragilis. Tissue culture highly polymicrobial. We had initially recommended Ceftriaxone and Flagyl for a total of 14 days for tissue infection. However, Ace returned to the OR on 11/25 for further resection of the bone and tissue debridement. Intraoperative culture, which is bone with some tissue according to the orthopedics team, is growing two species of oxa-resistant CoNS. It is difficult to say whether he truly has osteomyelitis given that the culture sent was both bone and tissue, and it could be that the tissue is the source of the CoNS rather than the bone. However, looking at the pictures of his foot on admission, would err on the side of caution and give him parenteral treatment, with plan for 6 weeks total from today but will reassess at a mid-treatment followupbased on clinical picture and CRP. He has done OPAT previously with the help of his , and both feel comfortable with managing at home. We still aim to cover gram negative organisms as well as anaerobes given the significant polymicrobial nature of his abscess culture while also keeping him to a less frequently dosed medication. This requires two meds, but enables dosing once per day. Baseline CK is wnl. We will discharge on Daptomycin 700mg q24h and Ertapenem 1g q24h, written for a total of 6 weeks of treatment, estimated at 01/06. -discontinue Vancomycin -start Daptomycin 700mg daily and Ertapenem 1g daily, estimated EOT 01/06 -please place PICC line -we will schedule follow-up in the ID clinic This plan was discussed with Dr. Spencer. Recommendations relayed to primary team. ID to sign off. Please reengage for any further questions or concerns. Donal Serrano MD Infectious disease fellow [place] team pager [phone] I have seen the patient and reviewed the above history and physical and I agree with the details as written. The assessment and plan were formulated in discussion with me and I agree with them as documented. Polymicrobial diabetic foot infection involving bone. Now s/p sequential debridement with persistently positive cultures, although original growth likely suppressed by Ceftriaxone/Flagyl offering opportunity for growth of resistant CoNS. In order to minimize number of different antibiotics would recommend combination of Daptomycin (which would eliminate the need to vidhi vancomycin troughs when patient is ready for discharge and we don't have time to check a vanco trough) and Ertapenem (which would replaced the combination of Ceftriaxone and Flagyl and maintain broad spectrum GNR/anaerobic coverage, while also avoiding quinolone which may cause prolonged QT in combination with other prolonging medication). Would treated for osteomyelitis with 3-6 weeks of therapy depending on how he is progressing at follow up. Will arrange OPAT follow up. Please place single lumen PICC for discharge. Judit Spencer DO, MPH Infectious Disease Valerie Adams RN - 11/26/2021 5:36 PM EDT OUTCOME EVALUATION NOTE: OUTCOME SUMMARY: Assumed care of patient. AOx3, disoriented to time. VSS on RA. Pt c/o increased work of breathing this morning. Crackles heard on auscultation. No desaturations. Nebulizer given with no effect. MD notified. Home lasix restarted. No further complaints. Breathing appears unlabored, continues to maintainon RA. Pt worked with OT at bedside today. Pt using commode at bedside. Pt having multiple loose bowel movements. MD notified. Pt placed on soap and water to rule out c-dif. Specimen collected and sentto lab. Chauhan removed. Meds given per order. PRN subq dilaudid given for 7/10 throbbing RLE pain with good effect. No acute issues. Will notify MD of changes. Addendum: Pt overheard on the phone saying, the first thing I'm going to do when I get home is buy a big bottle of bourbon. costume maker notified to ensure that BIT is following. PLAN MOVING FORWARD: Voiding trial. Pain management. INDIVIDUALIZED FALL PREVENTION INTERVENTIONS: Patient-specific fall risk factors per assessment: [current deficits]: Generalized weakness. Acute pain. Medical equipment. Assistance [level of assistance required for transfers and ambulation]: 1A FWW, NWB RLE Supervision [direct monitoring required during toileting and ADLs]: Eyes on Surveillance [continuous indirect monitoring]: Call romero within reach. Purposeful rounding. Room near nursing station. Bed alarm on. Patient-specific fall prevention interventions for sensory deficits provided, if applicable: [X] No CARE PLAN GOAL OUTCOME EVALUATION: Cyndy Padilla PA - 11/26/2021 2:14 PM EDT Hospital Medicine Daily Progress Note Admit Date: 11/18/2021 Hospital Day 8 days Active Hospital Problems Diagnosis ? ? S/p right great toe amp, I&D, vac 11/18/21 (Diego) ??? Alcohol withdrawal syndrome, with delirium Resolved Hospital Problems No resolved problems to display. 24 Hour Events: - Back to OR for I+D with closure, no wound vac on 11/25 -Tissue culture 11/25 growing coag negative staph. Bone culture 11/23 also grew 2 different coag negative staph susceptible to FQ, gentamicin, and vancomycin. Also grew rare Corynebacterium species - He is currently on ceftriaxone and Flagyl, will discuss with ID on antibiotic choice. - Lasix has been held since admission due to multiple OR procedures. Now with crackles on exam, willresume home Lasix. - Also having loose stools on antibiotics, will check for C. Difficile. ROS: Endorses shooting, sharp pain at surgical site. Denies GARCIA, fevers, chills, malaise, SOB, chest pain, Nausea, vomiting, diarrhea, constipation, edema, flank pain, dysuria. Physical Exam Vitals Range last 24 hrs Temperature Temp: [36.7 ??C (98.1 ??F)-37.6 ??C (99.7 ??F)] Heart Rate Heart Rate: [85] Blood Pressure BP: (167-184)/(87-110) Respiratory Rate Resp: [18-27] SpO2 SpO2: [90 %-98 %] Intake/Output Summary (Last 24 hours) at 11/26/2021 1414 Last data filed at 11/26/2021 1310 Gross per 24 hour Intake 1400 ml Output 4675 ml Net -3275 ml Patient Vitals for the past 168 hrs: Weight 11/26/21 09 91.9 kg (202 lb 11.2 oz) BMI: Weight: 91.9 kg (202 lb 11.2 oz) (11/26/21922) Estimated Creatinine Clearance: 66 mL/min (based on SCr of 1.2 mg/dL). CONSTITUTIONAL: Awake, alert, pleasantly conversant. Not in acute distress. Breathing comfortably onroom air and able to communicate in full sentences. HEENT: Normocephalic, atraumatic. Bilateral sclera anicteric. Oral mucous membranes moist. CHEST: S1S2, RRR, no murmurs, rubs, or clicks. LUNGS: Respiratory effort and expansion good, equal, and symmetric. Bilateral lungs clear to auscultation with no adventitious sounds noted. ABDOMEN: Soft, round, non-tender to palpation. EXTREMITIES: Bilateral upper extremities, warm and well perfused. Bilateral lower extremities with erythema noted bilaterally. R great toe amputation. PT pulses +1, equal, and symmetric. SKIN: warm and dry to touch NEURO: No focal deficit noted. Alert and oriented to person and place PSYCH: Appropriate mood and affect. Studies reviewed in eDH. Remarkable for the following: LABS: Recent Labs 11/26/21 0656 11/23/21 1628 11/21/21 0838 WBC 12.0* 13.3* 8.2 HGB 13.6* 15.2 13.2* HCT 40.5 45.6 38.9* PLATELET 418* 389* 285 Recent Labs 11/26/21 0656 11/23/21 1628 11/21/21 0838 NA 143 144 141 K 3.6 3.2* 3.3* CL 109* 105 104 CO2 22 23 25 BUN 8* 6* 6* CREATININE 1.20 1.28 0.93 Recent Labs 11/21/21 0838 AST 13 ALT 10 ALKPHOS 76 BILITOT 0.4 BILIDIR 0.1 Recent Labs 11/26/21 0656 11/23/21 1628 11/22/21 1807 11/22/21 0829 11/21/21 1846 11/21/21 0838 CALCIUM 8.8 9.2 -- -- -- 8.8 PHOS -- 4.0 2.9 3.6 < > 3.5 < > = values in this interval not displayed. No results for input(s): PT, INR, PTT in the last 168 hours. No results for input(s): CK, TROPONINT in the last 168 hours. FSBG Trend No results for input(s): POCGLU in the last 72 hours. MICRO: No results for input(s): URINECULTURE in the last 720 hours. Recent Labs 11/18/21 2052 11/23/21 1306 11/25/21 0900 GRAMSTAIN Many Neutrophils seen Many Gram Positive Cocci seen Many Gram Negative Rods seen Results called to and read back by Sd Cedillo 11/18/21 23:16:16 VM * Few Neutrophils seen No microorganisms seen. Results called to and read back by Sd Cedillo 11/18/21 23:17:24 VM Many Neutrophils seen Many Gram Positive Cocci seen Many Gram Negative Rods seen Results called to and read back by Sd Cedillo 11/18/21 23:16:50 VM * No Neutrophils seen. No microorganisms seen. * No Neutrophils seen. No microorganisms seen. * No Neutrophils seen. No microorganisms seen. * No Neutrophils seen. No microorganisms seen. * TISSUECX -- -- Rare Coagulase negative Staphylococcus species : Susceptibilities previously reported Coagulase negative Staphylococcus species #2 : Susceptibility testing in progress * No results for input(s): BLOODCX in the last 720 hours. ECG: Recent Labs 11/20/21 1247 DIAGLINE Normal sinus rhythm Anteroseptal infarct , age undetermined Prolonged QT Abnormal ECG When compared with ECG of 09-MAR-2020 18:45, Vent. rate has increased BY 35 BPM Anteroseptal infarct is now Present Non-specific change in ST segment in Inferior leads QT has lengthened Confirmed by MD Jacob, Cristian ([id number]) on 11/20/2021 2:01:24 PM QTCCALC 518 VASCULAR: No results for input(s): VBTEXTRPT in the last 720 hours. IMAGING: Results for orders placed or performed during the hospital encounter of 11/18/21 CT Lower Extremity w Contrast Right (Exam End: 11/18/2021 6:31 PM) Impression 1. Necrotizing soft tissue infection involving the first digit and first second web interspace. 2. Ulcer plantar to the first MTP joint with adjacent 1.1 cm abscess. 3. Some fluid around the first MTP joint and tracking within the tendon sheath of the flexor hallucis longus concerning for septic joint and septic tenosynovitis. Findings were discussed with Anatoliy Oliva M.D., by Mario Camp at approximately 2030 hrs. Preliminary report signed by: Mario Camp at 11/18/2021 9:26 PM I have personally reviewed the image(s) and the resident's interpretation and agree with the findings, Wicho Michael MD at 11/19/2021 2:58 AM Thank you for letting us participate in the care of this patient. If you are a health care provider and have any questions regarding this report, please contact the number below. For patients who have questions please contact the health intensive care medicine specialist that requested your imaging first. Electronically signed by: Wicho Michael MD, [facility] ([phone]), at 11/19/2021 2:58 AM XR Foot Min 3 views Right (Generic) (Exam End: 11/23/2021 6:36 PM) Impression Status post transmetatarsal amputation of the right great toe with postsurgical changes. Thank you for letting us participate in the care of this patient. If you are a health care provider and have any questions regarding this report, please contact the number below. For patients who have questions please contact the health intensive care medicine specialist that requested your imaging first. Inpatient Medications: Scheduled ??? furosemide 80 mg Oral Daily ??? metoprolol succinate XL 150 mg Oral Daily ??? cefTRIAXone 2 g Intravenous Q24H ??? metroNIDAZOLE 500 mg Oral TID ??? camphor-methyl salicyl-menthoL Topical (Top) BID ??? lisinopriL 40 mg Oral Daily ??? thiamine 100 mg Oral Daily ??? folic acid 1,000 mcg Oral Daily ??? pantoprazole EC 40 mg Oral BID ??? sodium chloride 0.9 % (flush) 5 mL Intravenous BID ??? enoxaparin 40 mg Subcutaneous Nightly ??? senna-docusate 2 tablet Oral BID ??? ipratropium-albuteroL 3 mL Nebulization Q6H While awake ??? nicotine 1 patch Transdermal Daily And ??? Patch Verification 1 patch Transdermal BID And ??? nicotine 1 patch Transdermal Daily ??? busPIRone 15 mg Oral BID ??? gabapentin 600 mg Oral TID ??? mirtazapine 30 mg Oral Nightly Continuous infusions: PRN: HYDROmorphone OR HYDROmorphone OR HYDROmorphone, midazolam (PF), hydrOXYzine, sodium chloride 0.9 % (flush), lidocaine, acetaminophen, ondansetron OR ondansetron, melatonin, albuteroL Assessment: Soledad Ramos??is a 66 y.o.??male??with hx of EtOH abuse with alcoholic neuropathy and chronic b/l foot wounds (previous osteomyelitis), prior left 4th- 5th amputations, COPD on 2 L O2 at home, opioid use disorder on methadone and mild cognitive impairment presented 11/18/21 for admission to [facility] (transferred from [facility] ED) at the request of the orthopedic surgery service for necrotizing soft tissue infection of the right foot/great toe. ?? 11/26: will discuss with ID on antibiotic choice. Resumed home Lasix. Plan for resuming home methadone the next few days once acute pain is treated for. Plan: #Necrotizing soft tissue infection s/p RIGHT 1st toe amp on 11/18/21 - CT right LE consistent with necrotizing soft tissue infection - Ortho consulted and following - Back to OR for I+D with closure, no wound vac on 11/25 - Initially on zosyn, clindamycin, vancomycin, D/C 11/23 and changed to ceftriaxone and flagyl per ID. - Wound cx with with Proteus mirabilis, strep milleri and Staph aureus- sensitives pending -Tissue culture 11/25 growing coag negative staph. Bone culture 11/23 also grew 2 different coag negative staph susceptible to FQ, gentamicin, and vancomycin. Also grew rare Corynebacterium species - Will discuss with ID on antibiotic choice. - NWB to RLE - PT/OT ?? #opioid use disorder #EtOH abuse #peripheral neuropathy #post-op pain control #Acute alcohol withdrawal-suspected - Call patient's clinic ([facility], ) in AM to confirm 90 mg dose of methadone daily. Attempted to call today but closes at 12:30pm -dose confirmed; consider resumption following acute pain phase - hydromorphone SC every 3 hours PRN post-operatively with dose range for severity - acetaminophen 650 mg every 6 hours prn - home gabapentin 600 mg TID - Patient scoring on CIWA-low dose ativan transitioned to regular ativan scale -transitioned to phenobarb 11/20 -QTC prolonged-518, avoid prolonging agents with acute agitation ?? #COPD on 2L NC at baseline #tobacco use- current 1 pack per day smoker - nicotine patch 21 mg daily - duonebs every 6 hours while awake - PRN albuterol - NC O2 titrate to 90% SpO2 - Patient ran out of oxygen about a month or so ago. CM made aware #HTN - Resume home lisinopril 40mg daily - reduce home metop 150 mg daily to metop tartrate 25 mg every 6 hours, increased to home dose 11/24 given persistent HTN requiring PRNs - 11/26 Resumed home furosemide - hydral as needed for SBP >180 ? #home medications - continue home pantoprazole 40 mg BID - continue home buspirone 30 mg BID - continue nightly mirtazapine 30 mg?? IV access/ MIVF PIV Tubes/ Drains Wound Vac DVT prophylaxis Lovenox PT/OT/PACKAGE LINE RELIEF OPERATOR ordered Wound care Per surgical team at this time Anticipated Disposition home with home health, home with supervision (pending progress made while hospitalized) Team Pager (MD Coverage 02/12): [phone] Family Update At bedside 11/25 PCP LISA Levi PA 11/26/2021 Grace Mnotero OT - 11/26/2021 9:30 AM EDT Occupational Therapy Evaluation Patient profile: Soledad Ramos??is a 66 y.o.??male??s/p??right??great toe amputation on 11/23/21 anddebridement and reamputation through first metatarsal with closure on 11/25.?? Past Medical History: Diagnosis Date ??? Ankle fracture, left 06/13/2015 ??? Cirrhosis Chronic HCV and history of alcohol use ??? Community acquired pneumonia 08/19/2012 ??? COPD (chronic obstructive pulmonary disease) ??? Depression ??? GERD (gastroesophageal reflux disease) ??? Hepatitis C ??? Hip pain 02/22/2016 ??? HTN (hypertension) ??? Knee pain 02/22/2016 ??? Retention of urine 09/07/2015 ??? s/p L 4th ray amp for osteo, 03/10/2020 Joshua 03/10/2020 ??? S/P L TKA 12/13/15 Dr. Mallory 12/13/2015 ??? SDH (subdural hematoma) 05/07/2019 Past Surgical History: Procedure Laterality Date ??? PRO AMPUTATION FOOT, TRANSMETATARSAL Left 03/10/2020 AMPUTATION, TRANSMETATARSAL (WRVU 12.71) performed by Geovanna Lewis MD at [facility] MAIN OR ??? PRO AMPUTATION FOOT, TRANSMETATARSAL Right 11/25/2021 AMPUTATION, TRANSMETATARSAL (WRVU 12.71) performed by Jarad Flores MD at [facility] MAIN OR ??? PRO AMPUTATION METATARSAL+TOE, SINGLE Right 11/23/2021 AMPUTATION, TRANSMETATARSAL TOE, ONE TOE (WRVU 6.64) performed by Jarad Flores MD at [facility] MAIN OR ??? PRO AMPUTATION TOE, MT-P JT Right 11/18/2021 AMPUTATION TOE, METATARSO-PHALANGEAL JOINT (WRVU 5.82) performed by Sammy Baker MD at [facility] ? ? PRO DEBRIDEMENT BONE MUSCLE &/FASCIA 20 SQ CM/< Right 11/25/2021 DEBRIDEMENT SKIN, SUBCU, MUSCLE, BONE, LOWER EXTREMITY (WRVU 4.1) performed by Jarad Flores MD [facility] MAIN OR ??? PRO TOTAL KNEE ARTHROPLASTY Left 12/13/2015 @TOTAL KNEE ARTHROPLASTY performed by Gordon Mallory MD at [facility] MAIN OR ??? PRO UPPER GI ENDOSCOPY, DIAGNOSTIC Bilateral 08/17/2015 EGD, UPPER GI ENDOSCOPY performed by Trev Hong MD at [facility] ENDOSCOPY ??? REVISION TOTAL HIP ARTHROPLASTY bilateral for hip AVN ??? SPINE SURGERY Social History: Information obtained through pt report and chart review. Home set up: pt lives with his in a split level home with 3 ZEINAB; information conflicting with info from PT eval. Pt states alternate entrance includes 8 steps up to the deck but he does not use that entrance. Bathroom has a tub/shower; no DME. PLOF: Pt reports independence with BADLs and manages all IADL. Pt is mostly sedentary and sleeps in a recliner in the bedroom. Per pt report, he does not use an AD for ambulation. Son, Daughter and are all available to assist pt at home. DME: cane, knee scooter, standard walker, manual w/c Falls: pt denies falls Precautions/Special Considerations: at risk to fall, NWB RLE, regular diet Subjective: I am pretty weak. I feel like I'm getting weaker and weaker. I don't even know how long I've been here. Objective: Seen today for OT evaluation. Pain: no rated. Pt indicating increased pain after transfer to bedside chair. Vitals: o HR: 125 bpm o SpO2: 97% on RA Cognitive Status/Behavior: ?? Behavior / Mood: alert and cooperative. Emotionally labile with recall of JESSY's ; emotional support provided with good effect. ?? Alert and oriented to: person, place and situation; disoriented to time. ?? Follows commands: multi step, 100% of the time and requires repetition ?? Attention: WFL ?? Safety awareness: decreased insight into deficits; cues needed for safety with transfers. ?? Memory impairment; pt needed visual cue to recall hx of L LE toe amps. Vision & Perception: WNL/WFL corrective lenses for reading Communication/Hearing: WFL Musculoskeletal: Hand dominance: right Strength/AROM: BUE WFL. Able to fully WB through LLE for transfers. AROM R hip to knee WFL; foot andankle ROM decreased in jude wrap/bandage. Coordination: intact Sensation: intact Skin: jude wrap and bandage over R foot/ankle Activities of Daily Living: Self-feeding: independent Grooming: brushed hair and cleaned dentures independently after vc to initiate Dressing: NA; anticipate independence with UB and min A LB Bathing: NA d/t pt deferred. Anticipate min A for LB Toileting: total assist for chauhan care. Pt reports independence with BM hygiene. Functional Mobility: Supine >< sit: independent Sit to stand: CGA with cues for technique Ambulation: bed >< commode, chair with FWW CGA and multiple cues for compliance with precautions Stand to sit: CGA with cues for safe technique Balance: Static sitting: good Dynamic sitting: good Static standing balance: fair+ with BUE support Dynamic standing balance: fair with UE support Education: Patient has been educated on Role of occupational therapy/rehabilitation, Transfers, ADL,Positioning, Safety, Functional Mobility, Activity pacing/Energy conservation, Balance, Recommendations and Discharge planning and pt verbalized understanding. Patient status, treatment, and mobility recommendations discussed with nursing. Assessment: Pt has been seen for occupational therapy evaluation. Soledad Ramos presents with the following performance skill deficits and client factors: increased pain, decreased activity tolerance,decreased flexibility/ROM, decreased strength, decreased sitting/standing balance, hemodynamic instability, cognitive deficits, deconditioning, precautions/bracing, compromised mobility status, coping and skin integrity. These performance deficits have led to activity limitations and participation restrictions in the following areas of occupation: dressing, bathing, toileting, transfers/mobility, home management, leisure and community mobility. Pt presented as pleasant and cooperative and motivated to regain his functional independence. Pt demonstrated inability to consistently maintain NWB on his RLE during functional transfers, decreased safety awareness, and decreased insight into his functional deficits. Pt was receptive to all education and recommendations and demonstrated carryover of instruction with cues. Pt would benefit from frequent opportunities to transfer OOB to commode or chair toimprove his strength and independence. Recommend pt use bedside commode at this time until pt is able to demonstrate compliance with NWB on RLE. Pt has a supportive family and AD's that may allow pt toprogress towards d/c home with family and VNA support. Further inpatient OT interventions are recommended to address performance deficits and maximize participation and independence with occupations ofdaily living. Equipment needs at discharge: Equipment Needs Upon Discharge (OT): walker, front wheeled, shower chair Anticipated Discharge Disposition (OT): home with home health, home with supervision (pending progress made while hospitalized) Staff Recommendations: ?? Commode for toileting ??? Reorient pt multiple times a day as needed ??? Assist pt OOB to chair for meals ??? Promote wellbeing through engagement in leisure and relaxation activities ??? Encourage good sleep hygiene with appropriate sleep/wake cycles ??? Utilize upright chair position using bed features or transfer to recliner chair as appropriate ??? Encourage participation in ADL's and provide physical assist only as needed Other Recommendations: No other consults recommended at this time Goals: To be achieved by 12/08/21. 1. Pt will ambulate to the bathroom with supervision 2. Pt will demonstrate compliance with WB precautions during all mobility without cues 3. Pt will wash/dress his LB with mod I using AE as needed 4. Pt will demonstrate safety awareness during ADLs without cues 5. Pt will perform all toileting tasks independently, bathroom level Plan: OT: Therapy Frequency (OT): 2-3 times/wk Planned OT interventions: Role of occupational therapy/rehabilitation, Transfers, Assistive device/technique, Adaptive equipment training, ADL, Exercise, Breathing exercises, Positioning, Safety, Precautions/Protocol, Functional Mobility, Activity pacing/Energy conservation, Home Program, Home Management, Balance, Recommendations, Family training and Discharge planning. Total Minutes, Occupational Therapy: 40 (Evaluation) 2017 OT Evaluation Code Rationale: ?? Diagnosis & Pertinent Co-Morbidities affecting Plan of Care: see PMHx ?? Occupational Profile & Client History: Brief Expanded Extensive x ?? Assessment of Occupational Performance: 1-3 performance deficits 3-5 performance deficits 5 + performance deficits x ?? Clinical Decision Making: Low Moderate High x Clinical decision making of moderate complexity using standardized patient assessment instrument andmeasurable assessment of functional outcome. Pager: [phone] Grace Montero OTR/L Occupational Therapy Rehabilitation Department Halrey Raymond MD - 11/26/2021 5:27 AM EDT ORTHOPAEDIC SURGERY INPATIENT PROGRESS NOTE Patient Name: Soledad Ramos Age: 66 y.o. Surgery/Issue: s/p repeat I&D Attending: Dr. Flores Date of surgery: 11/23/2021 SUBJECTIVE / INTERVAL HISTORY: JOSÉ LUIS APONTE. Hypertensive to the 180s. CoNS on intraop cultures 11/23, currently on ceftriaxone and flagyl Feeling well this morning, although he reports getting little sleep overnight Pain well controlled Denies chest pain, shortness of breath, nausea, vomiting FOCUSED REVIEW OF SYSTEMS: as above. Active Hospital Problems Diagnosis ? ? S/p right great toe amp, I&D, vac 11/18/21 (Diego) ??? Alcohol withdrawal syndrome, with delirium Resolved Hospital Problems No resolved problems to display. Active Non-Hospital Problems Diagnosis ??? Pruritic rash ??? Necrotizing soft tissue infection ??? Cellulitis of right foot ??? Acute osteomyelitis of right foot ??? Tightness of right gastrocnemius muscle ??? Edema of both lower extremities due to peripheral venous insufficiency ??? Functional gait abnormality ??? Noncompliance with treatment ??? Tobacco dependence syndrome ??? Chronic foot ulcer ??? Cellulitis ??? Tobacco user ??? Osteomyelitis ??? Neuropathic ulcer of toe of right foot with fat layer exposed ??? Neuropathic ulcer of foot, right, with fat layer exposed ??? Nausea ??? Fatigue ??? Patient has active durable power of oncology admin (DPOA) designee for healthcare ??? Methadone dependence ??? Minimal cognitive impairment ??? Claustrophobia ??? Hyperlipidemia ??? Avascular necrosis of humeral head ??? Pain in left shoulder ??? Verruca plantaris ??? Gastroesophageal reflux disease ??? Cirrhosis ??? Polysubstance abuse ??? Avascular necrosis bilateral knees ??? Depressive disorder ??? Neuropathy ??? Chronic obstructive lung disease ??? Edema ??? Essential hypertension ??? Confusion ??? Hepatitis C ??? Gout ??? Alcohol dependence ??? Anxiety ??? ADHD NOS ??? Chronic back pain ??? Major depressive disorder, single episode, unspecified MEDICATIONS: ??? hydrALAZINE (Apresoline) (20 mg/mL) injection 5 mg ??? HYDROmorphone (Dilaudid) (0.5 mg/0.5 mL) injection syringe 0.6 mg OR HYDROmorphone (Dilaudid) (0.5 mg/0.5 mL) injection syringe 0.8 mg OR HYDROmorphone (Dilaudid) (0.5 mg/0.5 mL) injection syringe 1 mg ??? metoprolol succinate XL (Toprol-XL) tablet 150 mg ??? cefTRIAXone (Rocephin) 2 g vial attach to sodium chloride 0.9% 50 mL Mini- Bag Plus ??? metroNIDAZOLE (Flagyl) tablet 500 mg ??? camphor-methyl salicyl-menthoL (Bengay Ultra Strength) 4-30-10 % cream ??? midazolam (pf) (Versed) (1 mg/mL) injection 1 mg ??? lisinopriL (Zestril) tablet 40 mg ??? thiamine (Vitamin B1) tablet 100 mg ??? folic acid (Folvite) tablet 1,000 mcg ??? hydrOXYzine (Atarax) tablet 25 mg ??? pantoprazole EC (Protonix) tablet 40 mg ??? sodium chloride 0.9 % (flush) (BD PosiFlush Normal Saline 0.9) flush 5 mL ??? sodium chloride 0.9 % (flush) (BD PosiFlush Normal Saline 0.9) flush 5-20 mL ??? lidocaine (Xylocaine) 1% (10 mg/mL) injection 3 mg ??? enoxaparin (Lovenox) (40 mg/0.4 mL) subcutaneous injection 40 mg ??? acetaminophen (Tylenol) tablet 650 mg ??? senna-docusate (Pericolace) 8.6-50 mg per tablet 2 tablet ??? ondansetron (Zofran) tablet 4-8 mg OR ondansetron (pf) (Zofran) (2 mg/mL) injection 4-8 mg ??? melatonin tablet 3 mg ??? ipratropium-albuteroL (Duoneb) 0.5 mg-3 mg(2.5 mg base)/3 mL nebulizer solution 3 mL ??? albuteroL (Proventil) nebulizer solution 2.5 mg ??? nicotine (Nicoderm CQ) 21 mg/24 hr patch 21 mg AND nicotine (NICODERM CQ) 21 mg/24 hr patch Patch Verification AND nicotine (NICODERM CQ) 21 mg/24 hr patch Patch Removal ??? busPIRone (Buspar) tablet 15 mg ??? gabapentin (Neurontin) capsule 600 mg ??? mirtazapine (Remeron) tablet 30 mg OBJECTIVE: Temp: [36.7 ??C (98.1 ??F)-37.6 ??C (99.7 ??F)] Heart Rate: [85-111] Resp: [11-23] BP: (113-184)/(67-118) Intake/Output Summary (Last 24 hours) at 11/26/2021 0539 Last data filed at 11/26/2021 0348 Gross per 24 hour Intake 2458 ml Output 2110 ml Net 348 ml Body mass index is 31.99 kg/m??. PE: General: Patient is awake/alert, responds to questions CV: RRR assessed peripherally Resp: Breathing comfortably on 2L NC ?? RLE: Absence of great toe, mid calf erythema unchanged. Dressing in place c/d/i Sensory intact to exposed toes Motor intact to ankle dorsi/plantar flexion, Brisk capillary refill distally, foot warm/well-perfused, DP & PT 2+ Lab Results Component Value Date NA 144 11/23/2021 K 3.2 (L) 11/23/2021 CL 105 11/23/2021 CO2 23 11/23/2021 BUN 6 (L) 11/23/2021 CREATININE 1.28 11/23/2021 GLUCOSE 96 11/23/2021 GLUCFASTING 95 03/14/2020 CALCIUM 9.2 11/23/2021 Lab Results Component Value Date WBC 13.3 (H) 11/23/2021 HGB 15.2 11/23/2021 HCT 45.6 11/23/2021 MCV 95.2 (H) 11/23/2021 PLATELET 389 (H) 11/23/2021 Lab Results Component Value Date INR 1.1 03/10/2020 IMAGING: XR of right foot on 11/23/21 shows right great toe amputation at mid 1st metatarsal. No evidence of complication. ASSESSMENT / PLAN: Soledad Ramos is a 66 y.o. male s/p right great toe amputation on 11/23/21 and debridement and reamputation through first metatarsal with closure on 11/25. He is doing well post-operatively. Intraoperative cultures show coag negative staph and patient is currently on ceftriaxone and flagyl. Orthopaedics will sign off at this time, please page [phone] with new questions. ?? Activity: NWB RLE DVT prophylaxis: rec lovenox Closure: Primary Closure - skin incision is completely closed without any wires, korey, drains or other devices Antibiotics: currently flagyl and ceftriaxone per primary Harley Raymond MD 11/26/2021 Future Appointments Date Time Provider Department Center 01/15/2022 12:[address] [facility] [address] [facility] Rad Valerie Graf RN - 11/25/2021 5:32 PM EDT OUTCOME EVALUATION NOTE: ?? OUTCOME SUMMARY: ?? Assumed care of patient. VSS on RA. AOx3, disoriented to time. Pt appropriate, cooperative, and verypleasant. Pt went to OR today for I&D and additional TMA. AVSS. Dressing CDI.Tolerated procedurewell. Oriented upon return. Pt c/o 8-01/19 throbbing RLE pain. Pain management plan discussed with covering provider. PRN subq dilaudid given with varying effect. Pain adequately controlled after third administration. Pt stating pain tolerable at 11/18, but still uncomfortable. Team notified. Plan to increase PRN dilaudid SS dosage. Meds given per order. No acute issues. Will notify MD of changes. ?? PLAN MOVING FORWARD: ?? NWB LLE. NPO at midnight for surgery tomorrow. Pain management. Reorient as necessary. Monitor vitals. ?? INDIVIDUALIZED FALL PREVENTION INTERVENTIONS: ?? Patient-specific fall risk factors per assessment: [current deficits]: Generalized weakness. Intermittent AMS. Medical equipment. ?? Assistance [level of assistance required for transfers and ambulation]: 1A ?? Supervision [direct monitoring required during toileting and ADLs]: Hands on ?? Surveillance [continuous indirect monitoring]: Call romero within reach. Purposeful rounding. Room near nursing station. Bed alarm on. ?? Patient-specific fall prevention interventions for sensory deficits provided, if applicable: [X] No ? CARE PLAN GOAL OUTCOME EVALUATION: ?? Patricia Villafana APRN - 11/25/2021 12:27 PM EDT Hospital Medicine Daily Progress Note Admit Date: 11/18/2021 Hospital Day 7 days Active Hospital Problems Diagnosis ? ? S/p right great toe amp, I&D, vac 11/18/21 (Diego) ??? Alcohol withdrawal syndrome, with delirium Resolved Hospital Problems No resolved problems to display. 24 Hour Events: - Back to OR for I+D with closure, no wound vac - Bone cx + 11/24, removed more proximal bone and recultured, awaiting results - awake, alert, cooperative, eating lunch postoperatively ROS: Endorses shooting, sharp pain at surgical site. Denies GARCIA, fevers, chills, malaise, SOB, chest pain, Nausea, vomiting, diarrhea, constipation, edema, flank pain, dysuria. Physical Exam Vitals Range last 24 hrs Temperature Temp: [36.7 ??C (98.1 ??F)-37.2 ??C (99 ??F)] Heart Rate Heart Rate: [86-111] Blood Pressure BP: (113-160)/(67-118) Respiratory Rate Resp: [11-24] SpO2 SpO2: [91 %-99 %] Intake/Output Summary (Last 24 hours) at 11/25/2021 1227 Last data filed at 11/25/2021 1129 Gross per 24 hour Intake 1210 ml Output 2485 ml Net -1275 ml Patient Vitals for the past 168 hrs: Weight 11/18/21 2310 98.2 kg (216 lb 9.6 oz) BMI: Weight: 98.2 kg (216 lb 9.6 oz) (11/18/21 2310) Estimated Creatinine Clearance: 63.8 mL/min (based on SCr of 1.28 mg/dL). CONSTITUTIONAL: Awake, alert, pleasantly conversant, with at bedside. Not in acute distress. Breathing comfortably on room air and able to communicate in full sentences. HEENT: Normocephalic, atraumatic. Bilateral sclera anicteric. Oral mucous membranes moist. CHEST: S1S2, RRR, no murmurs, rubs, or clicks. LUNGS: Respiratory effort and expansion good, equal, and symmetric. Bilateral lungs clear to auscultation with no adventitious sounds noted. ABDOMEN: Soft, round, non-tender to palpation. EXTREMITIES: Bilateral upper extremities, warm and well perfused. Bilateral lower extremities with erythema noted bilaterally. R great toe amputation with wound vac in place. PT pulses +1, equal, and symmetric. SKIN: warm and dry to touch NEURO: No focal deficit noted. Alert and oriented to person and place PSYCH: Appropriate mood and affect. Studies reviewed in eDH. Remarkable for the following: LABS: Recent Labs 11/23/21 1628 11/21/21 0838 11/20/21 0459 WBC 13.3* 8.2 10.7* HGB 15.2 13.2* 13.5* HCT 45.6 38.9* 40.6 PLATELET 389* 285 216 Recent Labs 11/23/21 1628 11/21/21 0838 11/20/21 0459 NA 144 141 134* K 3.2* 3.3* Not Perf CL 105 104 96* CO2 23 25 27 BUN 6* 6* 8* CREATININE 1.28 0.93 0.80 Recent Labs 11/21/21 0838 11/18/21 1725 AST 13 Not Perf ALT 10 8 ALKPHOS 76 91 BILITOT 0.4 0.4 BILIDIR 0.1 Not Perf Recent Labs 11/23/21 1628 11/22/21 1807 11/22/21 0829 11/21/21 1846 11/21/21 0838 11/20/21 0848 11/20/21 0459 CALCIUM 9.2 -- -- -- 8.8 -- 9.1 PHOS 4.0 2.9 3.6 < > 3.5 < > -- < > = values in this interval not displayed. No results for input(s): PT, INR, PTT in the last 168 hours. No results for input(s): CK, TROPONINT in the last 168 hours. FSBG Trend No results for input(s): POCGLU in the last 72 hours. MICRO: No results for input(s): URINECULTURE in the last 720 hours. Recent Labs 11/18/21 2052 11/23/21 1306 11/25/21 0900 GRAMSTAIN Many Neutrophils seen Many Gram Positive Cocci seen Many Gram Negative Rods seen Results called to and read back by Sd Cedillo 11/18/21 23:16:16 VM * Few Neutrophils seen No microorganisms seen. Results called to and read back by Sd Cedillo 11/18/21 23:17:24 VM Many Neutrophils seen Many Gram Positive Cocci seen Many Gram Negative Rods seen Results called to and read back by Sd Cedillo 11/18/21 23:16:50 VM * No Neutrophils seen. No microorganisms seen. * No Neutrophils seen. No microorganisms seen. * No Neutrophils seen. No microorganisms seen. * No Neutrophils seen. No microorganisms seen. No results for input(s): BLOODCX in the last 720 hours. ECG: Recent Labs 11/20/21 1247 DIAGLINE Normal sinus rhythm Anteroseptal infarct , age undetermined Prolonged QT Abnormal ECG When compared with ECG of 09-MAR-2020 18:45, Vent. rate has increased BY 35 BPM Anteroseptal infarct is now Present Non-specific change in ST segment in Inferior leads QT has lengthened Confirmed by MD Jacob, Cristian ([id number]) on 11/20/2021 2:01:24 PM QTCCALC 518 VASCULAR: No results for input(s): VBTEXTRPT in the last 720 hours. IMAGING: Results for orders placed or performed during the hospital encounter of 11/18/21 CT Lower Extremity w Contrast Right (Exam End: 11/18/2021 6:31 PM) Impression 1. Necrotizing soft tissue infection involving the first digit and first second web interspace. 2. Ulcer plantar to the first MTP joint with adjacent 1.1 cm abscess. 3. Some fluid around the first MTP joint and tracking within the tendon sheath of the flexor hallucis longus concerning for septic joint and septic tenosynovitis. Findings were discussed with Anatoliy Oliva M.D., by Mario Camp at approximately 2030 hrs. Preliminary report signed by: Mario Camp at 11/18/2021 9:26 PM I have personally reviewed the image(s) and the resident's interpretation and agree with the findings, Wicho Michael MD at 11/19/2021 2:58 AM Thank you for letting us participate in the care of this patient. If you are a health care provider and have any questions regarding this report, please contact the number below. For patients who have questions please contact the health intensive care medicine specialist that requested your imaging first. Foot Min 3 views Right (Generic) (Exam End: 11/23/2021 6:36 PM) Impression Status post transmetatarsal amputation of the right great toe with postsurgical changes. Thank you for letting us participate in the care of this patient. If you are a health care provider and have any questions regarding this report, please contact the number below. For patients who have questions please contact the health intensive care medicine specialist that requested your imaging first. Inpatient Medications: Scheduled ??? fentaNYL (PF) 50 mcg Intravenous Once ??? metoprolol succinate XL 150 mg Oral Daily ??? cefTRIAXone 2 g Intravenous Q24H ??? metroNIDAZOLE 500 mg Oral TID ??? camphor-methyl salicyl-menthoL Topical (Top) BID ??? lisinopriL 40 mg Oral Daily ??? thiamine 100 mg Oral Daily ??? folic acid 1,000 mcg Oral Daily ??? pantoprazole EC 40 mg Oral BID ??? sodium chloride 0.9 % (flush) 5 mL Intravenous BID ??? enoxaparin 40 mg Subcutaneous Nightly ??? senna-docusate 2 tablet Oral BID ??? ipratropium-albuteroL 3 mL Nebulization Q6H While awake ??? nicotine 1 patch Transdermal Daily And ??? Patch Verification 1 patch Transdermal BID And ??? nicotine 1 patch Transdermal Daily ??? busPIRone 15 mg Oral BID ??? gabapentin 600 mg Oral TID ??? mirtazapine 30 mg Oral Nightly Continuous infusions: PRN: HYDROmorphone OR HYDROmorphone OR HYDROmorphone, midazolam (PF), hydrOXYzine, sodium chloride 0.9 % (flush), lidocaine, acetaminophen, ondansetron OR ondansetron, melatonin, albuteroL Assessment: Soledad Ramos??is a 66 y.o.??male??with hx of EtOH abuse with alcoholic neuropathy and chronic b/l foot wounds (previous osteomyelitis), prior left 4th- 5th amputations, COPD on 2 L O2 at home, opioid use disorder on methadone and mild cognitive impairment presented 11/18/21 for admission to [facility] (transferred from [facility] ED) at the request of the orthopedic surgery service for necrotizing soft tissue infection of the right foot/great toe. ?? 11/25: returned to OR for closure, took down more bone with goal of source control. Cultures pending.NWB RIGHT foot. Calm and cooperative post op, does endorse increased pain, currently being managed with SQ hydromorphone. Plan: #Necrotizing soft tissue infection s/p RIGHT 1st toe amp on 11/18/21 - CT right LE consistent with necrotizing soft tissue infection - Ortho consulted and following - return to OR 11/23, hopeful for closure 11/25. - Initially on zosyn, clindamycin, vancomycin, D/C 11/23 and changed to ceftriaxone and flagyl per ID. - Wound cx with with Proteus mirabilis, strep milleri and Staph aureus- sensitives pending - Bone cx from 11/23 with reported coag neg staph - NWB to RLE - PT/OT ?? #opioid use disorder #EtOH abuse #peripheral neuropathy #post-op pain control #Acute alcohol withdrawal-suspected - Call patient's clinic ([facility], ) in AM to confirm 90 mg dose of methadone daily. Attempted to call today but closes at 12:30pm -dose confirmed; consider resumption following acute pain phase - hydromorphone SC every 3 hours PRN post-operatively with dose range for severity - acetaminophen 650 mg every 6 hours prn - home gabapentin 600 mg TID - Patient scoring on CIWA-low dose ativan transitioned to regular ativan scale -transitioned to phenobarb 11/20 -QTC prolonged-518, avoid prolonging agents with acute agitation ?? #COPD on 2L NC at baseline #tobacco use- current 1 pack per day smoker - nicotine patch 21 mg daily - duonebs every 6 hours while awake - PRN albuterol - NC O2 titrate to 90% SpO2 ?? #HTN - Resume home lisinopril 40mg daily - reduce home metop 150 mg daily to metop tartrate 25 mg every 6 hours, increased to home dose 11/24 given persistent HTN requiring PRNs - HOLD home furosemide as patient NPO - hydral as needed for SBP >180 ? #home medications - continue home pantoprazole 40 mg BID - continue home buspirone 30 mg BID - continue nightly mirtazapine 30 mg?? IV access/ MIVF PIV Tubes/ Drains Wound Vac DVT prophylaxis Lovenox PT/OT/PACKAGE LINE RELIEF OPERATOR ordered Wound care Per surgical team at this time Anticipated Disposition TBD Team Pager ( Coverage 02/12): [phone] Family Update At bedside 11/25 PCP LISA Levi APRN 11/25/2021 Gerhard Carroll MD - 11/25/2021 12:12 PM EDT ORTHOPAEDIC SURGERY INPATIENT PROGRESS NOTE Patient Name: Soledad Ramos Age: 66 y.o. Surgery/Issue: s/p repeat I&D Attending: Dr. Flores Date of surgery: 11/23/2021 SUBJECTIVE / INTERVAL HISTORY: Pain moderately well controlled. Patient denies chest pain, shortness of breath, nausea, vomiting, numbness/weakness. FOCUSED REVIEW OF SYSTEMS: as above. Active Hospital Problems Diagnosis ? ? S/p right great toe amp, I&D, vac 11/18/21 (Diego) ??? Alcohol withdrawal syndrome, with delirium Resolved Hospital Problems No resolved problems to display. Active Non-Hospital Problems Diagnosis ??? Pruritic rash ??? Necrotizing soft tissue infection ??? Cellulitis of right foot ??? Acute osteomyelitis of right foot ??? Tightness of right gastrocnemius muscle ??? Edema of both lower extremities due to peripheral venous insufficiency ??? Functional gait abnormality ??? Noncompliance with treatment ??? Tobacco dependence syndrome ??? Chronic foot ulcer ??? Cellulitis ??? Tobacco user ??? Osteomyelitis ??? Neuropathic ulcer of toe of right foot with fat layer exposed ??? Neuropathic ulcer of foot, right, with fat layer exposed ??? Nausea ??? Fatigue ??? Patient has active durable power of oncology admin (DPOA) designee for healthcare ??? Methadone dependence ??? Minimal cognitive impairment ??? Claustrophobia ??? Hyperlipidemia ??? Avascular necrosis of humeral head ??? Pain in left shoulder ??? Verruca plantaris ??? Gastroesophageal reflux disease ??? Cirrhosis ??? Polysubstance abuse ??? Avascular necrosis bilateral knees ??? Depressive disorder ??? Neuropathy ??? Chronic obstructive lung disease ??? Edema ??? Essential hypertension ??? Confusion ??? Hepatitis C ??? Gout ??? Alcohol dependence ??? Anxiety ??? ADHD NOS ??? Chronic back pain ??? Major depressive disorder, single episode, unspecified MEDICATIONS: ??? fentaNYL (PF) (50 mcg/mL) injection 50 mcg ??? metoprolol succinate XL (Toprol-XL) tablet 150 mg ??? HYDROmorphone (Dilaudid) (0.5 mg/0.5 mL) injection syringe 0.5 mg OR HYDROmorphone (Dilaudid) (0.5 mg/0.5 mL) injection syringe 0.6 mg OR HYDROmorphone (Dilaudid) (0.5 mg/0.5 mL) injection syringe 0.8 mg ??? cefTRIAXone (Rocephin) 2 g vial attach to sodium chloride 0.9% 50 mL Mini- Bag Plus ??? metroNIDAZOLE (Flagyl) tablet 500 mg ??? camphor-methyl salicyl-menthoL (Bengay Ultra Strength) 4-30-10 % cream ??? midazolam (pf) (Versed) (1 mg/mL) injection 1 mg ??? lisinopriL (Zestril) tablet 40 mg ??? thiamine (Vitamin B1) tablet 100 mg ??? folic acid (Folvite) tablet 1,000 mcg ??? hydrOXYzine (Atarax) tablet 25 mg ??? pantoprazole EC (Protonix) tablet 40 mg ??? sodium chloride 0.9 % (flush) (BD PosiFlush Normal Saline 0.9) flush 5 mL ??? sodium chloride 0.9 % (flush) (BD PosiFlush Normal Saline 0.9) flush 5-20 mL ??? lidocaine (Xylocaine) 1% (10 mg/mL) injection 3 mg ??? enoxaparin (Lovenox) (40 mg/0.4 mL) subcutaneous injection 40 mg ??? acetaminophen (Tylenol) tablet 650 mg ??? senna-docusate (Pericolace) 8.6-50 mg per tablet 2 tablet ??? ondansetron (Zofran) tablet 4-8 mg OR ondansetron (pf) (Zofran) (2 mg/mL) injection 4-8 mg ??? melatonin tablet 3 mg ??? ipratropium-albuteroL (Duoneb) 0.5 mg-3 mg(2.5 mg base)/3 mL nebulizer solution 3 mL ??? albuteroL (Proventil) nebulizer solution 2.5 mg ??? nicotine (Nicoderm CQ) 21 mg/24 hr patch 21 mg AND nicotine (NICODERM CQ) 21 mg/24 hr patch Patch Verification AND nicotine (NICODERM CQ) 21 mg/24 hr patch Patch Removal ??? busPIRone (Buspar) tablet 15 mg ??? gabapentin (Neurontin) capsule 600 mg ??? mirtazapine (Remeron) tablet 30 mg OBJECTIVE: Temp: [36.7 ??C (98.1 ??F)-37.2 ??C (99 ??F)] Heart Rate: [86-111] Resp: [11-24] BP: (113-160)/(67-118) Intake/Output Summary (Last 24 hours) at 11/25/2021 1207 Last data filed at 11/25/2021 1129 Gross per 24 hour Intake 1210 ml Output 2485 ml Net -1275 ml Body mass index is 31.99 kg/m??. PE: General: Patient is awake/alert, responds to questions CV: RRR assessed peripherally Resp: Breathing comfortably on RA ?? RLE: Absence of great toe Dressing in place Sensory intact to light touch in lower leg, but decreased in stocking distribution Motor intact to ankle dorsi/plantar flexion, Brisk capillary refill distally, foot warm/well-perfused, DP & PT 2+ Lab Results Component Value Date NA 144 11/23/2021 K 3.2 (L) 11/23/2021 CL 105 11/23/2021 CO2 23 11/23/2021 BUN 6 (L) 11/23/2021 CREATININE 1.28 11/23/2021 GLUCOSE 96 11/23/2021 GLUCFASTING 95 03/14/2020 CALCIUM 9.2 11/23/2021 Lab Results Component Value Date WBC 13.3 (H) 11/23/2021 HGB 15.2 11/23/2021 HCT 45.6 11/23/2021 MCV 95.2 (H) 11/23/2021 PLATELET 389 (H) 11/23/2021 Lab Results Component Value Date INR 1.1 03/10/2020 IMAGING: XR of right foot on 11/23/21 shows right great toe amputation at mid 1st metatarsal. No evidence of complication. ASSESSMENT / PLAN: Soledad Ramos is a 66 y.o. male s/p right great toe amputation on 11/23/21 and debridement and reamputation through first metatarsal with closure on 11/25. He is doing well post-operatively. Intraoperative cultures show coag negative staph and patient is currently on ceftriaxone and flagyl. ?? Activity: NWB RLE DVT prophylaxis: rec lovenox Closure: Primary Closure - skin incision is completely closed without any wires, korey, drains or other devices Antibiotics: currently flagyl and ceftriaxone per primary Gerhard Carroll MD 11/25/2021 Future Appointments Date Time Provider Department Center 01/15/2022 12:[address] [facility] [address] [facility] [address] [facility] Rad Katey Ruffin RN - 11/25/2021 10:02 AM EDT 0930 Pt arrived to PACU drowsy, maintaining airway, simple mask. Connected to monitor, alarms set and reviewed. VSS. 1000 Diminished breath sounds, but pt reporting SOB. Neb given. Minimal relief from PRN pain meds thus far 1010 No additional pain med orders to give, Dr. Uribe paged regarding possible rescue block 1030 Pt pain unchanged, coping better however. Paged medicine ONCOLOGY NURSE NAVIGATOR re: restarting home methadone, potential APS consult. Report given to [facility] Edi Childress MD - 11/25/2021 5:35 AM EDT ORTHOPAEDIC SURGERY INPATIENT PROGRESS NOTE Patient Name: Soledad Ramos Age: 66 y.o. Surgery/Issue: s/p R great toe amputation Attending: Dr. Flores Date of surgery: 11/23/2021 SUBJECTIVE / INTERVAL HISTORY: JOSÉ LUIS APONTE CoNS on intraop cultures, currently on ceftriaxone and flagyl Feeling well this morning, although he reports getting little sleep overnight NPO overnight for surgery today Pain well controlled Denies chest pain, shortness of breath, nausea, vomiting FOCUSED REVIEW OF SYSTEMS: as above. Active Hospital Problems Diagnosis ? ? S/p right great toe amp, I&D, vac 11/18/21 (Diego) ??? Alcohol withdrawal syndrome, with delirium Resolved Hospital Problems No resolved problems to display. Active Non-Hospital Problems Diagnosis ??? Pruritic rash ??? Necrotizing soft tissue infection ??? Cellulitis of right foot ??? Acute osteomyelitis of right foot ??? Tightness of right gastrocnemius muscle ??? Edema of both lower extremities due to peripheral venous insufficiency ??? Functional gait abnormality ??? Noncompliance with treatment ??? Tobacco dependence syndrome ??? Chronic foot ulcer ??? Cellulitis ??? Tobacco user ??? Osteomyelitis ??? Neuropathic ulcer of toe of right foot with fat layer exposed ??? Neuropathic ulcer of foot, right, with fat layer exposed ??? Nausea ??? Fatigue ??? Patient has active durable power of oncology admin (DPOA) designee for healthcare ??? Methadone dependence ??? Minimal cognitive impairment ??? Claustrophobia ??? Hyperlipidemia ??? Avascular necrosis of humeral head ??? Pain in left shoulder ??? Verruca plantaris ??? Gastroesophageal reflux disease ??? Cirrhosis ??? Polysubstance abuse ??? Avascular necrosis bilateral knees ??? Depressive disorder ??? Neuropathy ??? Chronic obstructive lung disease ??? Edema ??? Essential hypertension ??? Confusion ??? Hepatitis C ??? Gout ??? Alcohol dependence ??? Anxiety ??? ADHD NOS ??? Chronic back pain ??? Major depressive disorder, single episode, unspecified MEDICATIONS: ??? metoprolol succinate XL (Toprol-XL) tablet 150 mg ??? HYDROmorphone (Dilaudid) (0.5 mg/0.5 mL) injection syringe 0.5 mg OR HYDROmorphone (Dilaudid) (0.5 mg/0.5 mL) injection syringe 0.6 mg OR HYDROmorphone (Dilaudid) (0.5 mg/0.5 mL) injection syringe 0.8 mg ??? cefTRIAXone (Rocephin) 2 g vial attach to sodium chloride 0.9% 50 mL Mini- Bag Plus ??? metroNIDAZOLE (Flagyl) tablet 500 mg ??? camphor-methyl salicyl-menthoL (Bengay Ultra Strength) 4-30-10 % cream ??? midazolam (pf) (Versed) (1 mg/mL) injection 1 mg ??? lisinopriL (Zestril) tablet 40 mg ??? thiamine (Vitamin B1) tablet 100 mg ??? folic acid (Folvite) tablet 1,000 mcg ??? hydrOXYzine (Atarax) tablet 25 mg ??? pantoprazole EC (Protonix) tablet 40 mg ??? sodium chloride 0.9 % (flush) (BD PosiFlush Normal Saline 0.9) flush 5 mL ??? sodium chloride 0.9 % (flush) (BD PosiFlush Normal Saline 0.9) flush 5-20 mL ??? lidocaine (Xylocaine) 1% (10 mg/mL) injection 3 mg ??? enoxaparin (Lovenox) (40 mg/0.4 mL) subcutaneous injection 40 mg ??? acetaminophen (Tylenol) tablet 650 mg ??? senna-docusate (Pericolace) 8.6-50 mg per tablet 2 tablet ??? ondansetron (Zofran) tablet 4-8 mg OR ondansetron (pf) (Zofran) (2 mg/mL) injection 4-8 mg ??? melatonin tablet 3 mg ??? ipratropium-albuteroL (Duoneb) 0.5 mg-3 mg(2.5 mg base)/3 mL nebulizer solution 3 mL ??? albuteroL (Proventil) nebulizer solution 2.5 mg ??? nicotine (Nicoderm CQ) 21 mg/24 hr patch 21 mg AND nicotine (NICODERM CQ) 21 mg/24 hr patch Patch Verification AND nicotine (NICODERM CQ) 21 mg/24 hr patch Patch Removal ??? busPIRone (Buspar) tablet 15 mg ??? gabapentin (Neurontin) capsule 600 mg ??? mirtazapine (Remeron) tablet 30 mg OBJECTIVE: Temp: [36.8 ??C (98.2 ??F)-37.2 ??C (99 ??F)] Heart Rate: [86-91] Resp: [20-24] BP: (112-160)/(68-91) Intake/Output Summary (Last 24 hours) at 11/25/2021 0535 Last data filed at 11/25/2021 0452 Gross per 24 hour Intake 1215 ml Output 2375 ml Net -1160 ml Body mass index is 31.99 kg/m??. PE: General: Patient is awake/alert, responds to questions CV: RRR assessed peripherally Resp: Breathing comfortably on RA RLE: Absence of great toe Vac in place, holding suction, no evidence of leaks Area of erythema on the dorsolateral distal foot Sensory intact to light touch in lower leg, but decreased in stocking distribution Motor intact to ankle dorsi/plantar flexion, Brisk capillary refill distally, foot warm/well-perfused, DP & PT 2+ Last 3 wbc, hgb, hct plt Recent Labs 11/23/21 1628 11/21/21 0838 11/20/21 0459 WBC 13.3* 8.2 10.7* HGB 15.2 13.2* 13.5* HCT 45.6 38.9* 40.6 PLATELET 389* 285 216 Last 3 Lytes Recent Labs 11/23/21 1628 11/21/21 0838 11/20/21 0459 NA 144 141 134* K 3.2* 3.3* Not Perf CL 105 104 96* CO2 23 25 27 BUN 6* 6* 8* CREATININE 1.28 0.93 0.80 Last Ca, Mg, Phos Recent Labs 11/23/21 1628 CALCIUM 9.2 PHOS 4.0 Imaging: XR of right foot on 11/23/21 shows right great toe amputation at mid 1st metatarsal. No evidence of complication. ASSESSMENT / PLAN: Soledad Ramos is a 66 y.o. male s/p right great toe amputation on 11/23/21. He isdoing well post-operatively. Intraoperative cultures show coag negative staph and patient is currently on ceftriaxone and flagyl. Will plan to return to OR this morning for repeat I&D of his right great toe amputation site andpossible closure. Please keep NPO. Activity: NWB RLE DVT prophylaxis: rec lovenox Closure: 2 black sponges, 1 white sponge - wound vac set to -125 mmHG Antibiotics: currently flagyl and ceftriaxone per primary Edi Childress MD 11/25/2021 Future Appointments Date Time Provider Department Center 01/15/2022 12:[address] [facility] [address] [facility] [address] [facility] Rad Patricia Villafana, LISA - 11/24/2021 3:18 PM EDT Hospital Medicine Daily Progress Note Admit Date: 11/18/2021 Hospital Day 6 days Active Hospital Problems Diagnosis ? ? S/p right great toe amp, I&D, vac 11/18/21 (Diego) ??? Alcohol withdrawal syndrome, with delirium Resolved Hospital Problems No resolved problems to display. 24 Hour Events: - Pleasant and cooperative this morning - pain well managed with SQ dilaudid - Will be NPO at [place] for planned I+D with ortho on 11/25, hopeful for closure. ROS: Denies GARCIA, fevers, chills, malaise, SOB, chest pain, Nausea, vomiting, diarrhea, constipation, edema, flank pain, dysuria. Physical Exam Vitals Range last 24 hrs Temperature Temp: [36.4 ??C (97.6 ??F)-37.1 ??C (98.8 ??F)] Heart Rate Heart Rate: [90] Blood Pressure BP: (112-203)/(68-114) Respiratory Rate Resp: [21-24] SpO2 SpO2: [89 %-96 %] Intake/Output Summary (Last 24 hours) at 11/24/2021 1518 Last data filed at 11/24/2021 1330 Gross per 24 hour Intake 735 ml Output 1485 ml Net -750 ml Patient Vitals for the past 168 hrs: Weight 11/18/21 2310 98.2 kg (216 lb 9.6 oz) BMI: Weight: 98.2 kg (216 lb 9.6 oz) (11/18/21 2310) Estimated Creatinine Clearance: 63.8 mL/min (based on SCr of 1.28 mg/dL). CONSTITUTIONAL: Awake, alert, pleasantly conversant, significant improvement ib mental status and behavior. Not in acute distress. Breathing comfortably on room air and able to communicate in full sentences. HEENT: Normocephalic, atraumatic. Bilateral sclera anicteric. Oral mucous membranes moist. CHEST: S1S2, RRR, no murmurs, rubs, or clicks. LUNGS: Respiratory effort and expansion good, equal, and symmetric. Bilateral lungs clear to auscultation with no adventitious sounds noted. ABDOMEN: Soft, round, non-tender to palpation. EXTREMITIES: Bilateral upper extremities, warm and well perfused. Bilateral lower extremities with erythema noted bilaterally. R great toe amputation with wound vac in place. PT pulses +1, equal, and symmetric. SKIN: warm and dry to touch NEURO: No focal deficit noted. Alert and oriented to person and place PSYCH: Appropriate mood and affect. Studies reviewed in eDH. Remarkable for the following: LABS: Recent Labs 11/23/21162711/21/21 0838 11/20/21 0459 WBC 13.3* 8.2 10.7* HGB 15.2 13.2* 13.5* HCT 45.6 38.9* 40.6 PLATELET 389* 285 216 Recent Labs 11/23/21 1628 11/21/21 0838 11/20/21 0459 NA 144 141 134* K 3.2* 3.3* Not Perf CL 105 104 96* CO2 23 25 27 BUN 6* 6* 8* CREATININE 1.28 0.93 0.80 Recent Labs 11/21/21 0838 11/18/21 1725 AST 13 Not Perf ALT 10 8 ALKPHOS 76 91 BILITOT 0.4 0.4 BILIDIR 0.1 Not Perf Recent Labs 11/23/21 1628 11/22/21 1807 11/22/21 0829 11/21/21 1846 11/21/21 0838 11/20/21 0848 11/20/21 0459 CALCIUM 9.2 -- -- -- 8.8 -- 9.1 PHOS 4.0 2.9 3.6 < > 3.5 < > -- < > = values in this interval not displayed. No results for input(s): PT, INR, PTT in the last 168 hours. No results for input(s): CK, TROPONINT in the last 168 hours. FSBG Trend No results for input(s): POCGLU in the last 72 hours. MICRO: No results for input(s): URINECULTURE in the last 720 hours. Recent Labs 11/18/21205111/23/21 1306 GRAMSTAIN Many Neutrophils seen Many Gram Positive Cocci seen Many Gram Negative Rods seen Results called to and read back by Sd Cedillo 11/18/21 23:16:16 VM * Few Neutrophils seen No microorganisms seen. Results called to and read back by Sd Cedillo 11/18/21 23:17:24 VM Many Neutrophils seen Many Gram Positive Cocci seen Many Gram Negative Rods seen Results called to and read back by Sd Cedillo 11/18/21 23:16:50 VM * No Neutrophils seen. No microorganisms seen. * No Neutrophils seen. No microorganisms seen. No Neutrophils seen. No microorganisms seen. No results for input(s): BLOODCX in the last 720 hours. ECG: Recent Labs 11/20/21 1247 DIAGLINE Normal sinus rhythm Anteroseptal infarct , age undetermined Prolonged QT Abnormal ECG When compared with ECG of 09-MAR-2020 18:45, Vent. rate has increased BY 35 BPM Anteroseptal infarct is now Present Non-specific change in ST segment in Inferior leads QT has lengthened Confirmed by MD Jacob, Cristian ([id number]) on 11/20/2021 2:01:24 PM QTCCALC 518 VASCULAR: No results for input(s): VBTEXTRPT in the last 720 hours. IMAGING: Results for orders placed or performed during the hospital encounter of 11/18/21 CT Lower Extremity w Contrast Right (Exam End: 11/18/2021 6:31 PM) Impression 1. Necrotizing soft tissue infection involving the first digit and first second web interspace. 2. Ulcer plantar to the first MTP joint with adjacent 1.1 cm abscess. 3. Some fluid around the first MTP joint and tracking within the tendon sheath of the flexor hallucis longus concerning for septic joint and septic tenosynovitis. Findings were discussed with Anatoliy Oliva M.D., by Mario Camp at approximately 2030 hrs. Preliminary report signed by: Mario Camp at 11/18/2021 9:26 PM I have personally reviewed the image(s) and the resident's interpretation and agree with the findings, Wicho Michael MD at 11/19/2021 2:58 AM Thank you for letting us participate in the care of this patient. If you are a health care provider and have any questions regarding this report, please contact the number below. For patients who have questions please contact the health intensive care medicine specialist that requested your imaging first. Electronically signed by: Wicho Michael MD, [facility] ([phone]), at 11/19/2021 2:58 AM XR Foot Min 3 views Right (Generic) (Exam End: 11/23/2021 6:36 PM) Impression Status post transmetatarsal amputation of the right great toe with postsurgical changes. Thank you for letting us participate in the care of this patient. If you are a health care provider and have any questions regarding this report, please contact the number below. For patients who have questions please contact the health intensive care medicine specialist that requested your imaging first. Inpatient Medications: Scheduled ??? metoprolol succinate XL 150 mg Oral Daily ??? cefTRIAXone 2 g Intravenous Q24H ??? metroNIDAZOLE 500 mg Oral TID ??? camphor-methyl salicyl-menthoL Topical (Top) BID ??? lisinopriL 40 mg Oral Daily ??? thiamine 100 mg Oral Daily ??? folic acid 1,000 mcg Oral Daily ??? pantoprazole EC 40 mg Oral BID ??? sodium chloride 0.9 % (flush) 5 mL Intravenous BID ??? enoxaparin 40 mg Subcutaneous Nightly ??? senna-docusate 2 tablet Oral BID ??? ipratropium-albuteroL 3 mL Nebulization Q6H While awake ??? nicotine 1 patch Transdermal Daily And ??? Patch Verification 1 patch Transdermal BID And ??? nicotine 1 patch Transdermal Daily ??? busPIRone 15 mg Oral BID ??? gabapentin 600 mg Oral TID ??? mirtazapine 30 mg Oral Nightly Continuous infusions: PRN: HYDROmorphone OR HYDROmorphone OR HYDROmorphone, midazolam (PF), hydrOXYzine, sodium chloride 0.9 % (flush), lidocaine, acetaminophen, ondansetron OR ondansetron, melatonin, albuteroL Assessment: Soledad Ramos??is a 66 y.o.??male??with hx of EtOH abuse with alcoholic neuropathy and chronic b/l foot wounds (previous osteomyelitis), prior left 4th- 5th amputations, COPD on 2 L O2 at home, opioid use disorder on methadone and mild cognitive impairment presented 11/18/21 for admission to [facility] (transferred from [facility] ED) at the request of the orthopedic surgery service for necrotizing soft tissue infection of the right foot/great toe. ?? 11/23: Overnight, restless requiring restraint, lost IV access, more redirectable in AM, able to takePO meds. To OR with ortho for I+D, chauhan placed for urinary retention, calm and cooperative on return to floor. Plan: #Necrotizing soft tissue infection s/p RIGHT 1st toe amp on 11/18/21 - CT right LE consistent with necrotizing soft tissue infection - Ortho consulted and following - return to OR 11/23, hopeful for closure 11/25. - Initially on zosyn, clindamycin, vancomycin, D/C 11/23 and changed to ceftriaxone and flagyl per ID. - Wound cx with with Proteus mirabilis, strep milleri and Staph aureus- sensitives pending - Bone cx from 11/23 with reported coag neg staph - NWB to RLE - PT/OT ?? #opioid use disorder #EtOH abuse #peripheral neuropathy #post-op pain control #Acute alcohol withdrawal-suspected - Call patient's clinic ([facility], ) in AM to confirm 90 mg dose of methadone daily. Attempted to call today but closes at 12:30pm -dose confirmed; consider resumption following acute pain phase - hydromorphone SC every 3 hours PRN post-operatively with dose range for severity - acetaminophen 650 mg every 6 hours prn - home gabapentin 600 mg TID - Patient scoring on CIWA-low dose ativan transitioned to regular ativan scale -transitioned to phenobarb 11/20 -QTC prolonged-518, avoid prolonging agents with acute agitation ?? #COPD on 2L NC at baseline #tobacco use- current 1 pack per day smoker - nicotine patch 21 mg daily - duonebs every 6 hours while awake - PRN albuterol - NC O2 titrate to 90% SpO2 ?? #HTN - Resume home lisinopril 40mg daily - reduce home metop 150 mg daily to metop tartrate 25 mg every 6 hours, increased to home dose 11/24 given persistent HTN requiring PRNs - HOLD home furosemide as patient NPO - hydral as needed for SBP >180 ? #home medications - continue home pantoprazole 40 mg BID - continue home buspirone 30 mg BID - continue nightly mirtazapine 30 mg?? IV access/ MIVF PIV Tubes/ Drains Wound Vac DVT prophylaxis Lovenox PT/OT/PACKAGE LINE RELIEF OPERATOR ordered Wound care Per surgical team at this time Anticipated Disposition TBD Team Pager (MD Coverage 02/12): [phone] Family Update At bedside 11/22 PCP LISA Levi APRN 11/24/2021 Valerie Adams RN - 11/24/2021 3:16 PM EDT OUTCOME EVALUATION NOTE: OUTCOME SUMMARY: Assumed care of patient. VSS on RA. AOx3, disoriented to time. Pt appropriate, cooperative, and verypleasant. Pt out of restraints since last night, not necessary today. Pt c/o 11/18 back and surgical site pain [LLE]. PRN subq dilaudid given with effect. Pain reassessed at 07/19. Wound vac in place, con tinuous @ -125mmHg. Chauhan maintained. Meds given per order. No acute issues. Will notify MD of changes. PLAN MOVING FORWARD: NWB LLE. NPO at midnight for surgery tomorrow. Pain management. Reorient as necessary. Monitor vitals. INDIVIDUALIZED FALL PREVENTION INTERVENTIONS: Patient-specific fall risk factors per assessment: [current deficits]: Generalized weakness. Intermittent AMS. Medical equipment. Assistance [level of assistance required for transfers and ambulation]: 1A Supervision [direct monitoring required during toileting and ADLs]: Hands on Surveillance [continuous indirect monitoring]: Call romero within reach. Purposeful rounding. Room near nursing station. Bed alarm on. Patient-specific fall prevention interventions for sensory deficits provided, if applicable: [X] No CARE PLAN GOAL OUTCOME EVALUATION: Brooks Schumacher MD - 11/24/2021 5:48 AM EDT ORTHOPAEDIC SURGERY INPATIENT PROGRESS NOTE Patient Name: Soledad Ramos Age: 66 y.o. Surgery/Issue: s/p R great toe amputation Attending: Dr. Flores Date of surgery: 11/23/2021 SUBJECTIVE / INTERVAL HISTORY: Hypertensive overnight to . Intra-operative cultures with NGTD and negative gram stain. Pain well controlled. Patient denies chest pain, shortness of breath, nausea, vomiting, numbness/weakness.Tolerating PO. Discussed plan to return to OR tomorrow for I&D of foot. FOCUSED REVIEW OF SYSTEMS: as above. Active Hospital Problems Diagnosis ? ? S/p right great toe amp, I&D, vac 11/18/21 (Diego) ??? Alcohol withdrawal syndrome, with delirium Resolved Hospital Problems No resolved problems to display. Active Non-Hospital Problems Diagnosis ??? Pruritic rash ??? Necrotizing soft tissue infection ??? Cellulitis of right foot ??? Acute osteomyelitis of right foot ??? Tightness of right gastrocnemius muscle ??? Edema of both lower extremities due to peripheral venous insufficiency ??? Functional gait abnormality ??? Noncompliance with treatment ??? Tobacco dependence syndrome ??? Chronic foot ulcer ??? Cellulitis ??? Tobacco user ??? Osteomyelitis ??? Neuropathic ulcer of toe of right foot with fat layer exposed ??? Neuropathic ulcer of foot, right, with fat layer exposed ??? Nausea ??? Fatigue ??? Patient has active durable power of oncology admin (DPOA) designee for healthcare ??? Methadone dependence ??? Minimal cognitive impairment ??? Claustrophobia ??? Hyperlipidemia ??? Avascular necrosis of humeral head ??? Pain in left shoulder ??? Verruca plantaris ??? Gastroesophageal reflux disease ??? Cirrhosis ??? Polysubstance abuse ??? Avascular necrosis bilateral knees ??? Depressive disorder ??? Neuropathy ??? Chronic obstructive lung disease ??? Edema ??? Essential hypertension ??? Confusion ??? Hepatitis C ??? Gout ??? Alcohol dependence ??? Anxiety ??? ADHD NOS ??? Chronic back pain ??? Major depressive disorder, single episode, unspecified MEDICATIONS: ??? HYDROmorphone (Dilaudid) (0.5 mg/0.5 mL) injection syringe 0.5 mg OR HYDROmorphone (Dilaudid) (0.5 mg/0.5 mL) injection syringe 0.6 mg OR HYDROmorphone (Dilaudid) (0.5 mg/0.5 mL) injection syringe 0.8 mg ??? cefTRIAXone (Rocephin) 2 g vial attach to sodium chloride 0.9% 50 mL Mini- Bag Plus ??? metroNIDAZOLE (Flagyl) tablet 500 mg ??? camphor-methyl salicyl-menthoL ([place] Ultra Strength) 4-30-10 % cream ??? midazolam (pf) (Versed) (1 mg/mL) injection 1 mg ??? lisinopriL (Zestril) tablet 40 mg ??? thiamine (Vitamin B1) tablet 100 mg ??? folic acid (Folvite) tablet 1,000 mcg ??? hydrOXYzine (Atarax) tablet 25 mg ??? pantoprazole EC (Protonix) tablet 40 mg ??? sodium chloride 0.9 % (flush) (BD PosiFlush Normal Saline 0.9) flush 5 mL ??? sodium chloride 0.9 % (flush) (BD PosiFlush Normal Saline 0.9) flush 5-20 mL ??? lidocaine (Xylocaine) 1% (10 mg/mL) injection 3 mg ??? enoxaparin (Lovenox) (40 mg/0.4 mL) subcutaneous injection 40 mg ??? acetaminophen (Tylenol) tablet 650 mg ??? senna-docusate (Pericolace) 8.6-50 mg per tablet 2 tablet ??? ondansetron (Zofran) tablet 4-8 mg OR ondansetron (pf) (Zofran) (2 mg/mL) injection 4-8 mg ??? melatonin tablet 3 mg ??? ipratropium-albuteroL (Duoneb) 0.5 mg-3 mg(2.5 mg base)/3 mL nebulizer solution 3 mL ??? albuteroL (Proventil) nebulizer solution 2.5 mg ??? nicotine (Nicoderm CQ) 21 mg/24 hr patch 21 mg AND nicotine (NICODERM CQ) 21 mg/24 hr patch Patch Verification AND nicotine (NICODERM CQ) 21 mg/24 hr patch Patch Removal ??? busPIRone (Buspar) tablet 15 mg ??? metoproloL tartrate (Lopressor) tablet 25 mg ??? gabapentin (Neurontin) capsule 600 mg ??? mirtazapine (Remeron) tablet 30 mg OBJECTIVE: Temp: [36.1 ??C (97 ??F)-37.1 ??C (98.8 ??F)] Heart Rate: [89-96] Resp: [14-26] BP: (137-203)/(86-116) Intake/Output Summary (Last 24 hours) at 11/24/2021 0548 Last data filed at 11/24/2021 0532 Gross per 24 hour Intake 1430 ml Output 2660 ml Net -1230 ml Body mass index is 31.99 kg/m??. PE: General: Patient is awake/alert, responds to questions CV: RRR assessed peripherally Resp: Breathing comfortably on RA RLE: Dressing c/d/i, WV in place, holding suction, no evidence of leaks 100cc of sanguinous output in cannister Sensory intact to light touch in femoral distribution but not yet in others Motor intact to ankle dorsi/plantar flexion, Brisk capillary refill distally, foot warm/well-perfused, DP & PT 2+ Lab Results Component Value Date NA 144 11/23/2021 K 3.2 (L) 11/23/2021 CL 105 11/23/2021 CO2 23 11/23/2021 BUN 6 (L) 11/23/2021 CREATININE 1.28 11/23/2021 GLUCOSE 96 11/23/2021 GLUCFASTING 95 03/14/2020 CALCIUM 9.2 11/23/2021 Lab Results Component Value Date WBC 13.3 (H) 11/23/2021 HGB 15.2 11/23/2021 HCT 45.6 11/23/2021 MCV 95.2 (H) 11/23/2021 PLATELET 389 (H) 11/23/2021 Lab Results Component Value Date INR 1.1 03/10/2020 ASSESSMENT / PLAN: Soledad Ramos is a 66 y.o. male 1 Day Post-Op s/p R great toe amputation. Doing well post-operatively. Primary team working on blood pressure control. Will plan to return to OR tomorrow, 11/25 for repeat I&D of R foot. Please keep NPO at MN. Activity: NWB RLE DVT prophylaxis: rec lovenox Closure: 2 black sponges, 1 white sponge - wound vac set to -125 mmHG Antibiotics: Per primary Brooks Schumacher MD 11/24/2021 Future Appointments Date Time Provider Department Center 01/15/2022 12:[address] [facility] [address] [facility] [address] [facility] Rad Jarad Flores MD - 11/23/2021 5:02 PM EDT ORTHOPAEDIC SURGERY INPATIENT PROGRESS NOTE Patient Name: Soledad Ramos Age: 66 y.o. Surgery/Issue: s/p R great toe amputation Attending: Dr. Flores Date of surgery: 11/23/2021 SUBJECTIVE / INTERVAL HISTORY: Patient resting comfortably in bed. Pain well controlled. Patient denies chest pain, shortness of breath, nausea, vomiting, numbness/weakness.Tolerating PO, catheter in place. FOCUSED REVIEW OF SYSTEMS: as above. Active Hospital Problems Diagnosis ? ? S/p right great toe amp, I&D, vac 11/18/21 (Diego) ??? Alcohol withdrawal syndrome, with delirium Resolved Hospital Problems No resolved problems to display. Active Non-Hospital Problems Diagnosis ??? Pruritic rash ??? Necrotizing soft tissue infection ??? Cellulitis of right foot ??? Acute osteomyelitis of right foot ??? Tightness of right gastrocnemius muscle ??? Edema of both lower extremities due to peripheral venous insufficiency ??? Functional gait abnormality ??? Noncompliance with treatment ??? Tobacco dependence syndrome ??? Chronic foot ulcer ??? Cellulitis ??? Tobacco user ??? Osteomyelitis ??? Neuropathic ulcer of toe of right foot with fat layer exposed ??? Neuropathic ulcer of foot, right, with fat layer exposed ??? Nausea ??? Fatigue ??? Patient has active durable power of oncology admin (DPOA) designee for healthcare ??? Methadone dependence ??? Minimal cognitive impairment ??? Claustrophobia ??? Hyperlipidemia ??? Avascular necrosis of humeral head ??? Pain in left shoulder ??? Verruca plantaris ??? Gastroesophageal reflux disease ??? Cirrhosis ??? Polysubstance abuse ??? Avascular necrosis bilateral knees ??? Depressive disorder ??? Neuropathy ??? Chronic obstructive lung disease ??? Edema ??? Essential hypertension ??? Confusion ??? Hepatitis C ??? Gout ??? Alcohol dependence ??? Anxiety ??? ADHD NOS ??? Chronic back pain ??? Major depressive disorder, single episode, unspecified MEDICATIONS: ??? [MAR Hold] HYDROmorphone (Dilaudid) (0.5 mg/0.5 mL) injection syringe 0.5 mg OR [MAR Hold] HYDROmorphone (Dilaudid) (0.5 mg/0.5 mL) injection syringe 0.6 mg OR [MAR Hold] HYDROmorphone (Dilaudid) (0.5 mg/0.5 mL) injection syringe 0.8 mg ??? naloxone (Narcan) (0.4 mg/mL) injection 0.04 mg ??? fentaNYL (pf) (50 mcg/mL) multi-dose injection 25 mcg OR fentaNYL (pf) (50 mcg/mL) multi-dose injection 50 mcg ??? HYDROmorphone (Dilaudid) (2 mg/mL) multi-dose injection solution 0.4 mg OR HYDROmorphone (Dilaudid) (2 mg/mL) multi-dose injection solution 0.6 mg ??? ondansetron (pf) (Zofran) (2 mg/mL) injection 4 mg ??? midazolam (pf) (Versed) (1 mg/mL) injection 1 mg ??? fentaNYL (PF) (50 mcg/mL) injection 50 mcg ??? [JUL Hold] lisinopriL (Zestril) tablet 40 mg ??? [JUL Hold] thiamine (Vitamin B1) tablet 100 mg ??? [JUL Hold] folic acid (Folvite) tablet 1,000 mcg ??? [COMPLETED] PHENobarbitaL (Luminal) tablet 64.8 mg FOLLOWED BY [COMPLETED] PHENobarbitaL (Luminal) tablet 32.4 mg FOLLOWED BY [MAR Hold] PHENobarbitaL (Luminal) tablet 16.2 mg ??? [JUL Hold] piperacillin-tazobactam (Zosyn) 3.375 g vial attach to sodium chloride 0.9% 50 mL Mini-Bag Plus ??? [JUL Hold] hydrOXYzine (Atarax) tablet 25 mg ??? [JUL Hold] pantoprazole EC (Protonix) tablet 40 mg ??? [JUL Hold] sodium chloride 0.9 % (flush) (BD PosiFlush Normal Saline 0.9) flush 5 mL ??? [JUL Hold] sodium chloride 0.9 % (flush) (BD PosiFlush Normal Saline 0.9) flush 5-20 mL ??? [JUL Hold] lidocaine (Xylocaine) 1% (10 mg/mL) injection 3 mg ??? [JUL Hold] enoxaparin (Lovenox) (40 mg/0.4 mL) subcutaneous injection 40 mg ??? [JUL Hold] acetaminophen (Tylenol) tablet 650 mg ??? [JUL Hold] senna-docusate (Pericolace) 8.6-50 mg per tablet 2 tablet ??? [JUL Hold] ondansetron (Zofran) tablet 4-8 mg OR [JUL Hold] ondansetron (pf) (Zofran) (2 mg/mL) injection 4-8 mg ??? [JUL Hold] melatonin tablet 3 mg ??? [JUL Hold] ipratropium-albuteroL (Duoneb) 0.5 mg-3 mg(2.5 mg base)/3 mL nebulizer solution 3 mL ??? [JUL Hold] albuteroL (Proventil) nebulizer solution 2.5 mg ??? [JUL Hold] nicotine (Nicoderm CQ) 21 mg/24 hr patch 21 mg AND [JUL Hold] nicotine (NICODERM CQ) 21 mg/24 hr patch Patch Verification AND [JUL Hold] nicotine (NICODERM CQ) 21 mg/24 hr patch Patch Removal ??? acetaminophen (Tylenol) tablet 650 mg ??? [JUL Hold] busPIRone (Buspar) tablet 15 mg ??? [JUL Hold] metoproloL tartrate (Lopressor) tablet 25 mg ??? [JUL Hold] gabapentin (Neurontin) capsule 600 mg ??? [JUL Hold] mirtazapine (Remeron) tablet 30 mg OBJECTIVE: Temp: [36.1 ??C (97 ??F)-37.2 ??C (99 ??F)] Heart Rate: [88-96] Resp: [14-26] BP: (137-191)/(93-116) Intake/Output Summary (Last 24 hours) at 11/23/2021 1420 Last data filed at 11/23/2021 1409 Gross per 24 hour Intake 700 ml Output 2225 ml Net -1525 ml Body mass index is 31.99 kg/m??. PE: General: Patient is awake/alert, responds to questions CV: RRR assessed peripherally Resp: Breathing comfortably on RA RLE: Dressing c/d/i, wound vac and sponge in place- suction intact. Sensory intact to light touch in femoral distribution but not yet in others Ankle extension/flexion motor intact Brisk capillary refill distally, foot warm/well-perfused, DP 2+ Lab Results Component Value Date NA 141 11/21/2021 K 3.3 (L) 11/21/2021 CL 104 11/21/2021 CO2 25 11/21/2021 BUN 6 (L) 11/21/2021 CREATININE 0.93 11/21/2021 GLUCOSE 89 11/21/2021 GLUCFASTING 95 03/14/2020 CALCIUM 8.8 11/21/2021 Lab Results Component Value Date WBC 8.2 11/21/2021 HGB 13.2 (L) 11/21/2021 HCT 38.9 (L) 11/21/2021 MCV 94.2 (H) 11/21/2021 PLATELET 285 11/21/2021 Lab Results Component Value Date INR 1.1 03/10/2020 ASSESSMENT / PLAN: Soledad Ramos is a 66 y.o. male Day of Surgery s/p R great toe amputation. Doingwell post-operatively. Discharge pending evaluation by PT/OT on POD1. Activity: NWB RLE DVT prophylaxis: Rec lovenox Closure: 2 black sponges, 1 white spong - wound vac set to -125 mmHG Antibiotics: Per primary, continue vanco/clinda Nina Garrison MD 11/23/2021 Future Appointments Date Time Provider Department Center 01/15/2022 12:[address] [facility] [address] [facility] [address] [facility] Rad Patricia Villafana, LISA - 11/23/2021 3:59 PM EDT Hospital Medicine Daily Progress Note Admit Date: 11/18/2021 Hospital Day 5 days Active Hospital Problems Diagnosis ? ? S/p right great toe amp, I&D, vac 11/18/21 (Diego) ??? Alcohol withdrawal syndrome, with delirium Resolved Hospital Problems No resolved problems to display. 24 Hour Events: - agitated overnight, lost PIV access and unable to establish new access - anesthesia able to establish access today in OR - I+D with ortho, tolerated well, hopeful for last I+D on Friday/Friday with wound closure - ID consulted for abx recs, D/C zosyn, added ceftriaxone 2 g daily and flagyl 500 mg TID. D/C plan cefpodoxime 400 mg q 12 and flagyl 500 mg TID to complete 14 day course -acute urinary retention noted on bladder scan in OR with volume of 949, chauhan placed, 900 mL immediate return - patient calm and cooperative after return from PACU ROS: Denies GARCIA, fevers, chills, malaise, SOB, chest pain, Nausea, vomiting, diarrhea, constipation, edema, flank pain, dysuria. Physical Exam Vitals Range last 24 hrs Temperature Temp: [36.1 ??C (97 ??F)-37.2 ??C (99 ??F)] Heart Rate Heart Rate: [88-96] Blood Pressure BP: (137-191)/(93-116) Respiratory Rate Resp: [14-26] SpO2 SpO2: [90 %-99 %] Intake/Output Summary (Last 24 hours) at 11/23/2021 1559 Last data filed at 11/23/2021 1534 Gross per 24 hour Intake 700 ml Output 2235 ml Net -1535 ml Patient Vitals for the past 168 hrs: Weight 11/18/21 2310 98.2 kg (216 lb 9.6 oz) BMI: Weight: 98.2 kg (216 lb 9.6 oz) (11/18/21 2310) Estimated Creatinine Clearance: 87.8 mL/min (based on SCr of 0.93 mg/dL). CONSTITUTIONAL: Awake, alert, mildly restless upon entering room. Not in acute distress. Breathing comfortably on room air and able to communicate in full sentences. HEENT: Normocephalic, atraumatic. Bilateral sclera anicteric. Oral mucous membranes moist. CHEST: S1S2, RRR, no murmurs, rubs, or clicks. LUNGS: Respiratory effort and expansion good, equal, and symmetric. Bilateral lungs clear to auscultation with no adventitious sounds noted. ABDOMEN: Soft, round, non-tender to palpation. EXTREMITIES: Bilateral upper extremities, warm and well perfused. Radial pulses +2, equal, and symmetric. Left arm with infiltrate, mildly edematous, site marked with no growth beyond borders. Bilateral lower extremities with erythema noted bilaterally. R great toe amputation with wound vac in place. PT pulses +1, equal, and symmetric. SKIN: warm and dry to touch NEURO: No focal deficit noted. Alert and oriented to person and place PSYCH: Frustrated, restless Studies reviewed in eDH. Remarkable for the following: LABS: Recent Labs 11/21/21 0838 11/20/21 0459 11/19/21 0556 WBC 8.2 10.7* 13.1* HGB 13.2* 13.5* 12.7* HCT 38.9* 40.6 39.4* PLATELET 285 216 217 Recent Labs 11/21/21 0838 11/20/21 0459 11/19/21 0556 NA 141 134* 139 K 3.3* Not Perf 3.5 CL 104 96* 98 CO2 25 27 34* BUN 6* 8* 12 CREATININE 0.93 0.80 0.98 Recent Labs 11/21/21 0838 11/18/21 1725 AST 13 Not Perf ALT 10 8 ALKPHOS 76 91 BILITOT 0.4 0.4 BILIDIR 0.1 Not Perf Recent Labs 11/22/21 1807 11/22/21 0829 11/21/21 1846 11/21/21 0838 11/20/21 0848 11/20/21 0459 11/19/21 0556 CALCIUM -- -- -- 8.8 -- 9.1 9.0 PHOS 2.9 3.6 2.9 3.5 < > -- -- < > = values in this interval not displayed. No results for input(s): PT, INR, PTT in the last 168 hours. No results for input(s): CK, TROPONINT in the last 168 hours. FSBG Trend No results for input(s): POCGLU in the last 72 hours. MICRO: No results for input(s): URINECULTURE in the last 720 hours. Recent Labs 11/18/21205111/23/21 1306 GRAMSTAIN Many Neutrophils seen Many Gram Positive Cocci seen Many Gram Negative Rods seen Results called to and read back by Sd Cedillo 11/18/21 23:16:16 VM * Few Neutrophils seen No microorganisms seen. Results called to and read back by Sd Cedillo 11/18/21 23:17:24 VM Many Neutrophils seen Many Gram Positive Cocci seen Many Gram Negative Rods seen Results called to and read back by Sd Cedillo 11/18/21 23:16:50 VM * No Neutrophils seen. No microorganisms seen. No Neutrophils seen. No microorganisms seen. No Neutrophils seen. No microorganisms seen. No results for input(s): BLOODCX in the last 720 hours. ECG: Recent Labs 11/20/21 1247 DIAGLINE Normal sinus rhythm Anteroseptal infarct , age undetermined Prolonged QT Abnormal ECG When compared with ECG of 09-MAR-2020 18:45, Vent. rate has increased BY 35 BPM Anteroseptal infarct is now Present Non-specific change in ST segment in Inferior leads QT has lengthened Confirmed by MD Jacob, Cristian ([id number]) on 11/20/2021 2:01:24 PM QTCCALC 518 VASCULAR: No results for input(s): VBTEXTRPT in the last 720 hours. IMAGING: Results for orders placed or performed during the hospital encounter of 11/18/21 CT Lower Extremity w Contrast Right (Exam End: 11/18/2021 6:31 PM) Impression 1. Necrotizing soft tissue infection involving the first digit and first second web interspace. 2. Ulcer plantar to the first MTP joint with adjacent 1.1 cm abscess. 3. Some fluid around the first MTP joint and tracking within the tendon sheath of the flexor hallucis longus concerning for septic joint and septic tenosynovitis. Findings were discussed with Anatoliy Oliva M.D., by Mario Camp at approximately 2030 hrs. Preliminary report signed by: Mario Camp at 11/18/2021 9:26 PM I have personally reviewed the image(s) and the resident's interpretation and agree with the findings, Wicho Michael MD at 11/19/2021 2:58 AM Thank you for letting us participate in the care of this patient. If you are a health care provider and have any questions regarding this report, please contact the number below. For patients who have questions please contact the health intensive care medicine specialist that requested your imaging first. Inpatient Medications: Scheduled ??? cefTRIAXone 2 g Intravenous Q24H ??? metroNIDAZOLE 500 mg Oral TID ??? lisinopriL 40 mg Oral Daily ??? thiamine 100 mg Oral Daily ??? folic acid 1,000 mcg Oral Daily ??? PHENobarbitaL 0.24 mg/kg/dose ([place]) Oral BID ??? pantoprazole EC 40 mg Oral BID ??? sodium chloride 0.9 % (flush) 5 mL Intravenous BID ??? enoxaparin 40 mg Subcutaneous Nightly ??? senna-docusate 2 tablet Oral BID ??? ipratropium-albuteroL 3 mL Nebulization Q6H While awake ??? nicotine 1 patch Transdermal Daily And ??? Patch Verification 1 patch Transdermal BID And ??? nicotine 1 patch Transdermal Daily ??? busPIRone 15 mg Oral BID ??? metoproloL tartrate 25 mg Oral Q6H LUIS ??? gabapentin 600 mg Oral TID ??? mirtazapine 30 mg Oral Nightly Continuous infusions: PRN: HYDROmorphone OR HYDROmorphone OR HYDROmorphone, midazolam (PF), hydrOXYzine, sodium chloride 0.9 % (flush), lidocaine, acetaminophen, ondansetron OR ondansetron, melatonin, albuteroL Assessment: Soledad Ramos??is a 66 y.o.??male??with hx of EtOH abuse with alcoholic neuropathy and chronic b/l foot wounds (previous osteomyelitis), prior left 4th- 5th amputations, COPD on 2 L O2 at home, opioid use disorder on methadone and mild cognitive impairment presented 11/18/21 for admission to [facility] (transferred from [facility] ED) at the request of the orthopedic surgery service for necrotizing soft tissue infection of the right foot/great toe. ?? 11/23: Overnight, restless requiring restraint, lost IV access, more redirectable in AM, able to takePO meds. To OR with ortho for I+D, chauhan placed for urinary retention, calm and cooperative on return to floor. Plan: #Necrotizing soft tissue infection s/p RIGHT 1st toe amp on 11/18/21 - CT right LE consistent with necrotizing soft tissue infection - Ortho consulted and following - return to OR today 11/23, hopeful for closure 11/25 or . - Initially on zosyn, clindamycin, vancomycin, D?C 11/23 and changed to ceftriaxone and flagyl per ID. - Wound cx with with Proteus mirabilis, strep milleri and Staph aureus- sensitives pending - Bone cx is negative to date - NWB to RLE - PT/OT ?? #opioid use disorder #EtOH abuse #peripheral neuropathy #post-op pain control #Acute alcohol withdrawal-suspected - Call patient's clinic ([facility], ) in AM to confirm 90 mg dose of methadone daily. Attempted to call today but closes at 12:30pm -dose confirmed; consider resumption following acute pain phase - hydromorphone SC every 3 hours PRN post-operatively with dose range for severity - acetaminophen 650 mg every 6 hours prn - home gabapentin 600 mg TID - Patient scoring on CIWA-low dose ativan transitioned to regular ativan scale -transitioned to phenobarb 11/20 -QTC prolonged-518, avoid prolonging agents with acute agitation ?? #COPD on 2L NC at baseline #tobacco use- current 1 pack per day smoker - nicotine patch 21 mg daily - duonebs every 6 hours while awake - PRN albuterol - NC O2 titrate to 90% SpO2 ?? #HTN - Resume home lisinopril 40mg daily - reduce home metop 150 mg daily to metop tartrate 25 mg every 6 hours - HOLD home furosemide as patient NPO - hydral as needed for SBP >180 ? #home medications - continue home pantoprazole 40 mg BID - continue home buspirone 30 mg BID - continue nightly mirtazapine 30 mg?? IV access/ MIVF PIV Tubes/ Drains Wound Vac DVT prophylaxis Lovenox PT/OT/PACKAGE LINE RELIEF OPERATOR ordered Wound care Per surgical team at this time Anticipated Disposition TBD Team Pager (MD Coverage 02/12): [phone] Family Update At bedside 11/22 PCP LISA Levi APRN 11/23/2021 Kierra Velazquez, VINCENT - 11/23/2021 2:38 PM EDT Pt arrived to RM 153 from PACU. VSS on RA with exception of HTN 168/100, paged. IV Dailaudid administered per MD for pain/BP. Pt calm and cooperative at this time. Soft bilateral wrist and ankle restraints and shanelle in place for safety. Wound VAC in placed at -125 suction. @1800 paged regarding continued elevated BP 197/103. Scheduled metoprolol given, BP re-check in 30 mins. Trisha Velasquez RN - 11/23/2021 2:04 PM EDT Patient alert to self, very confused and extremely agitated this morning. Argumentative with staff, loudly screaming out, verbally inappropriate and occasionally attempting to be combative with staff. Team notified - no new orders. Remains without IV access. Continues in 4 point restraints and shanelle ve st, secured thoroughly. Documented and assessed per protocol. NPO maintained. Plan for patient to goto OR today for I&D and ?line placement. BP remains elevated, team aware. Report called to OR. Patient to be moved to private room upon return to unit. Report given to VINCENT Lozada. Loly Obrien RN - 11/23/2021 1:55 PM EDT 1338- Pt rec'd in PACU from OR. Pt in 4 point restraints & chest shanelle from floor & OR. 1350 - Service paged for bladder scan = 949 mls. Chauhan ordered & placed. Christina Leonard OT - 11/23/2021 12:55 PM EDT Occupational Therapy Note Document Type: contact Total Minutes, Occupational Therapy: 0 Reason: 11/23/21 1055 Evaluation & Treatment Document Type contact Total Minutes, Occupational Therapy 0 Comment, Session Not Performed Checked in with RN. pt still confused, restrained, and awaiting return to OR today for I and D. Will plan to follow up again on Friday to evaluate as appropriate. Pager: [phone] CHRISTINA LEONARD OT 11/23/2021 Occupational Therapy Rehabilitation Department Harley Raymond MD - 11/23/2021 5:25 AM EDT ORTHOPAEDIC SURGERY INPATIENT PROGRESS NOTE Patient Name: Soledad Ramos Age: 66 y.o. Surgery/Issue: R great toe amputation Attending: Dr. Baker Date of surgery: 11/18/2021 SUBJECTIVE / INTERVAL HISTORY: Hypertensive and tachycardic to the 120s overnight. No temperature obtained overnight. Wound vac change 11/23. Withdrawing and on phenobarbital. Restrained for picking at wound vac. Reports doing well this morning. PICC needed, unable to get done yesterday due to inability to give consent. Will re-attempt today. Abscess cultures growing staph aureus, proteus, bacterioides, and strep milleri. Bone cultures bacteriodes. Remains clinda and zosyn. AM labs pending. FOCUSED REVIEW OF SYSTEMS: as above. Active Hospital Problems Diagnosis ? ? S/p right great toe amp, I&D, vac 11/18/21 (Diego) ??? Alcohol withdrawal syndrome, with delirium Resolved Hospital Problems No resolved problems to display. Active Non-Hospital Problems Diagnosis ??? Pruritic rash ??? Necrotizing soft tissue infection ??? Cellulitis of right foot ??? Acute osteomyelitis of right foot ??? Tightness of right gastrocnemius muscle ??? Edema of both lower extremities due to peripheral venous insufficiency ??? Functional gait abnormality ??? Noncompliance with treatment ??? Tobacco dependence syndrome ??? Chronic foot ulcer ??? Cellulitis ??? Tobacco user ??? Osteomyelitis ??? Neuropathic ulcer of toe of right foot with fat layer exposed ??? Neuropathic ulcer of foot, right, with fat layer exposed ??? Nausea ??? Fatigue ??? Patient has active durable power of oncology admin (DPOA) designee for healthcare ??? Methadone dependence ??? Minimal cognitive impairment ??? Claustrophobia ??? Hyperlipidemia ??? Avascular necrosis of humeral head ??? Pain in left shoulder ??? Verruca plantaris ??? Gastroesophageal reflux disease ??? Cirrhosis ??? Polysubstance abuse ??? Avascular necrosis bilateral knees ??? Depressive disorder ??? Neuropathy ??? Chronic obstructive lung disease ??? Edema ??? Essential hypertension ??? Confusion ??? Hepatitis C ??? Gout ??? Alcohol dependence ??? Anxiety ??? ADHD NOS ??? Chronic back pain ??? Major depressive disorder, single episode, unspecified MEDICATIONS: ??? midazolam (pf) (Versed) (1 mg/mL) injection 1 mg ??? fentaNYL (PF) (50 mcg/mL) injection 50 mcg ??? HYDROmorphone (Dilaudid) (0.5 mg/0.5 mL) injection syringe 0.5 mg OR HYDROmorphone (Dilaudid) (0.5 mg/0.5 mL) injection syringe 0.6 mg OR HYDROmorphone (Dilaudid) (0.5 mg/0.5 mL) injection syringe 0.8 mg ??? lisinopriL (Zestril) tablet 40 mg ??? thiamine (Vitamin B1) tablet 100 mg ??? folic acid (Folvite) tablet 1,000 mcg ??? [COMPLETED] PHENobarbitaL (Luminal) tablet 64.8 mg FOLLOWED BY [COMPLETED] PHENobarbitaL (Luminal) tablet 32.4 mg FOLLOWED BY PHENobarbitaL (Luminal) tablet 16.2 mg ??? piperacillin-tazobactam (Zosyn) 3.375 g vial attach to sodium chloride 0.9% 50 mL Mini-Bag Plus ??? hydrOXYzine (Atarax) tablet 25 mg ??? clindamycin (Cleocin) 600 mg in dextrose 5% 50 mL infusion ??? pantoprazole EC (Protonix) tablet 40 mg ??? sodium chloride 0.9 % (flush) (BD PosiFlush Normal Saline 0.9) flush 5 mL ??? sodium chloride 0.9 % (flush) (BD PosiFlush Normal Saline 0.9) flush 5-20 mL ??? lidocaine (Xylocaine) 1% (10 mg/mL) injection 3 mg ??? enoxaparin (Lovenox) (40 mg/0.4 mL) subcutaneous injection 40 mg ??? acetaminophen (Tylenol) tablet 650 mg ??? senna-docusate (Pericolace) 8.6-50 mg per tablet 2 tablet ??? ondansetron (Zofran) tablet 4-8 mg OR ondansetron (pf) (Zofran) (2 mg/mL) injection 4-8 mg ??? melatonin tablet 3 mg ??? ipratropium-albuteroL (Duoneb) 0.5 mg-3 mg(2.5 mg base)/3 mL nebulizer solution 3 mL ??? albuteroL (Proventil) nebulizer solution 2.5 mg ??? nicotine (Nicoderm CQ) 21 mg/24 hr patch 21 mg AND nicotine (NICODERM CQ) 21 mg/24 hr patch Patch Verification AND nicotine (NICODERM CQ) 21 mg/24 hr patch Patch Removal ??? acetaminophen (Tylenol) tablet 650 mg ??? busPIRone (Buspar) tablet 15 mg ??? metoproloL tartrate (Lopressor) tablet 25 mg ??? gabapentin (Neurontin) capsule 600 mg ??? mirtazapine (Remeron) tablet 30 mg OBJECTIVE: Temp: [36.7 ??C (98.1 ??F)-37.2 ??C (99 ??F)] Heart Rate: [84-93] Resp: [16-18] BP: (180-195)/(94-136) Intake/Output Summary (Last 24 hours) at 11/23/2021 0525 Last data filed at 11/22/2021 2300 Gross per 24 hour Intake 700 ml Output 1300 ml Net -600 ml Body mass index is 31.99 kg/m??. PE: General: awake/alert, altered mental status, in 4 point restraints CV: Tachycardic, regular rhythm assessed peripherally Resp: Breathing comfortably on 2L NC RLE: limited exam due to delirium/withdrawl Dressing c/d/i. Cellulitis to mid calf per alvarado. W[place] holding adequate suction. Unable to assess sensation due to mental state Motor grossly intact to TA, ED, knee extension/flexion, hip extension/flexion, but exam limited by mental status Brisk capillary refill distally, foot warm/well-perfused, DP 2+ Lab Results Component Value Date NA 141 11/21/2021 K 3.3 (L) 11/21/2021 CL 104 11/21/2021 CO2 25 11/21/2021 BUN 6 (L) 11/21/2021 CREATININE 0.93 11/21/2021 GLUCOSE 89 11/21/2021 GLUCFASTING 95 03/14/2020 CALCIUM 8.8 11/21/2021 Lab Results Component Value Date WBC 8.2 11/21/2021 HGB 13.2 (L) 11/21/2021 HCT 38.9 (L) 11/21/2021 MCV 94.2 (H) 11/21/2021 PLATELET 285 11/21/2021 Lab Results Component Value Date INR 1.1 03/10/2020 ASSESSMENT / PLAN: Soledad Ramos is a 66 y.o. male 2 Days Post-Op s/p R 1st toe amputation. Doing well post-operatively. OR today for repeat I&D. Activity: NWB RLE DVT prophylaxis: Recc lovenox Closure: Wet to dry Antibiotics: Per primary, continue vanco/clinda Harley Raymond MD 11/23/2021 Future Appointments Date Time Provider Department Center 01/15/2022 12:[address] [facility] [address] [facility] [address] [facility] Rad Palomo Herring RN - 11/23/2021 2:42 AM EDT Patient Turn Back/PICC Consultation This patient has been turned back by the Vascular Access Service due to inadequate vasculature suitable for venipuncture and or peripheral IV initiation. Two Vascular Access nurses have initiated a minimum total of four unsuccessful attempts for PIV access, including the use of Ultrasound guidance technology Due to the inadequacy of vasculature available for venipuncture and for patient comfort and safety, the Vascular Access Service will not attempt further access or lab draws on this patient for: [ ] 24 hrs [X ] 48hrs It is the recommendation of the Vascular Access Service staff that this patient have an alternative venous access device ordered by a physician as soon as possible for patient comfort and to be able tosafely administer the prescribed medications via venous infusion. Please page the PICC room at [phone] or call [phone] between the hours of 7:00am and 5:30pm Friday-Friday for PICC line placement/scheduling. After hours the Vascular Access Service can be reached at anytime on pager [phone] PICC requests for the following day. [ X] I have contacted the physician to request PICC line placement for this patient. Trisha Montiel RN - 11/22/2021 6:31 PM EDT OUTCOME EVALUATION NOTE: OUTCOME SUMMARY: Patient alert to self only, occasionally to place. Very confused and forgetful. Frequent reorientingprovided. Continues on Phenobarb taper. Restless and agitated, continues with 4 point restraints andposey. Documented and assessed per protocol -see flowsheet. Repeatedly asking to be released from restraints, however patient shows no improvement in regards to own safety. Escaped out of restraints 2xthis shift, found to be picking at wound vac site attempting to remove. Wound vac site intact. Restraints replaced and secured. PRN Atarax given x1 with fair effect. at bedside. Patient hyper focused on methadone - educated on significant interaction with phenobarb. No evidence of learning. Attempt to place PICC line today - no consent obtained, unable to complete. Continues with triple IV ABX. BP elevated throughout shift, team aware. Using bedpan and chauhan with assistance - see I&Os. Planfor patient to be NPO @ [facility] for OR tomorrow for repeat I&D. Resting in bed at this time. Bed alarmed for safety. Call romero within reach, frequent checks made. Disruptive to neighbor, charge authorizer made aware. Working on getting patient private room for behavior. PLAN MOVING FORWARD: I&D tomorrow, PICC?, restraint monitoring, IV ABX, D/C planning INDIVIDUALIZED FALL PREVENTION INTERVENTIONS: Patient-specific fall risk factors per assessment: [current deficits]: Impaired mobility, NWB to RLE, IV sites/wound vac, recent surgery, confusion, hospital environment Assistance [level of assistance required for transfers and ambulation]: 2 assist Supervision [direct monitoring required during toileting and ADLs]: Hands on Surveillance [continuous indirect monitoring]: Bed alarm, Masimo, call romero, safety checks, rounding Patient-specific fall prevention interventions for sensory deficits provided, if applicable: CPG GOAL OUTCOME EVALUATION: Laurel Em OT - 11/22/2021 2:55 PM EDT Occupational Therapy Note Document Type: contact Total Minutes, Occupational Therapy: 0 Reason: Spoke with RN who requested OT services be deferred at this time as pt is still in restraints and is unable to follow commands. Will continue to follow and complete OT evaluation when appropriate. Pager: [phone] Laurel Em OT 11/22/2021 Occupational Therapy Rehabilitation Department LedyPatricia Jenni, ONCOLOGY NURSE NAVIGATOR - 11/22/2021 12:30 PM EDT Hospital Medicine Daily Progress Note Admit Date: 11/18/2021 Hospital Day 4 days Active Hospital Problems Diagnosis ? ? S/p right great toe amp, I&D, vac 11/18/21 (Diego) ??? Alcohol withdrawal syndrome, with delirium Resolved Hospital Problems No resolved problems to display. 24 Hour Events: - Patient seen and evaluated in person at bedside - 1 episode of HTN overnight, improved with pain meds and phenobarbital dose - not agitated this AM - On phenobarb now from ativan for withdrawal -Oral methadone dose confirmed 90mg daily (260mEq morphine daily) -Culture growing proteus mirabilis, strep milleri and staph aureus-pending sensitivities -Bone culture with NGTD - needs PICC placed, ordered 11/21 ROS: Denies GARCIA, fevers, chills, malaise, SOB, chest pain, Nausea, vomiting, diarrhea, constipation, edema, flank pain, dysuria. Physical Exam Vitals Range last 24 hrs Temperature Temp: [36.4 ??C (97.5 ??F)-36.9 ??C (98.4 ??F)] Heart Rate Heart Rate: [75-98] Blood Pressure BP: (132-202)/(68-136) Respiratory Rate Resp: [16-25] SpO2 SpO2: [87 %-98 %] Intake/Output Summary (Last 24 hours) at 11/22/2021 1231 Last data filed at 11/22/2021 0844 Gross per 24 hour Intake 1026.9 ml Output 1350 ml Net -323.1 ml Patient Vitals for the past 168 hrs: Weight 11/18/21 2310 98.2 kg (216 lb 9.6 oz) BMI: Weight: 98.2 kg (216 lb 9.6 oz) (11/18/21 2310) Estimated Creatinine Clearance: 87.8 mL/min (based on SCr of 0.93 mg/dL). CONSTITUTIONAL: Awake, alert, mildly restless upon entering room. Not in acute distress. Breathing comfortably on room air and able to communicate in full sentences. HEENT: Normocephalic, atraumatic. Bilateral sclera anicteric. Oral mucous membranes moist. CHEST: S1S2, RRR, no murmurs, rubs, or clicks. LUNGS: Respiratory effort and expansion good, equal, and symmetric. Bilateral lungs clear to auscultation with no adventitious sounds noted. ABDOMEN: Soft, round, non-tender to palpation. EXTREMITIES: Bilateral upper extremities, warm and well perfused. Radial pulses +2, equal, and symmetric. Left arm with infiltrate, mildly edematous, site marked with no growth beyond borders. Bilateral lower extremities with erythema noted bilaterally. R great toe amputation with wound vac in place. PT pulses +1, equal, and symmetric. SKIN: warm and dry to touch NEURO: No focal deficit noted. Alert and oriented to person, place and situation. PSYCH: Frustrated, but cooperative. Studies reviewed in eDH. Remarkable for the following: LABS: Recent Labs 11/21/21 0838 11/20/21 0459 11/19/21 0556 WBC 8.2 10.7* 13.1* HGB 13.2* 13.5* 12.7* HCT 38.9* 40.6 39.4* PLATELET 285 216 217 Recent Labs 11/21/21 0838 11/20/21 0459 11/19/21 0556 NA 141 134* 139 K 3.3* Not Perf 3.5 CL 104 96* 98 CO2 25 27 34* BUN 6* 8* 12 CREATININE 0.93 0.80 0.98 Recent Labs 11/21/21 0838 11/18/21 1725 AST 13 Not Perf ALT 10 8 ALKPHOS 76 91 BILITOT 0.4 0.4 BILIDIR 0.1 Not Perf Recent Labs 11/22/21 0829 11/21/21 1846 11/21/21 0838 11/20/21 0848 11/20/21 0459 11/19/21 0556 CALCIUM -- -- 8.8 -- 9.1 9.0 PHOS 3.6 2.9 3.5 < > -- -- < > = values in this interval not displayed. No results for input(s): PT, INR, PTT in the last 168 hours. No results for input(s): CK, TROPONINT in the last 168 hours. FSBG Trend No results for input(s): POCGLU in the last 72 hours. MICRO: No results for input(s): URINECULTURE in the last 720 hours. Recent Labs 11/18/212051 GRAMSTAIN Many Neutrophils seen Many Gram Positive Cocci seen Many Gram Negative Rods seen Results called to and read back by Sd Cedillo 11/18/21 23:16:16 VM * Many Neutrophils seen Many Gram Positive Cocci seen Many Gram Negative Rods seen Results called to and read back by Sd Cedillo 11/18/21 23:16:50 VM * Few Neutrophils seen No microorganisms seen. Results called to and read back by Sd Cedillo 11/18/21 23:17:24 VM No results for input(s): BLOODCX in the last 720 hours. ECG: Recent Labs 11/20/21 1247 DIAGLINE Normal sinus rhythm Anteroseptal infarct , age undetermined Prolonged QT Abnormal ECG When compared with ECG of 09-MAR-2020 18:45, Vent. rate has increased BY 35 BPM Anteroseptal infarct is now Present Non-specific change in ST segment in Inferior leads QT has lengthened Confirmed by MD Jacbo, Cristian ([id number]) on 11/20/2021 2:01:24 PM QTCCALC 518 VASCULAR: No results for input(s): VBTEXTRPT in the last 720 hours. IMAGING: Results for orders placed or performed during the hospital encounter of 11/18/21 CT Lower Extremity w Contrast Right (Exam End: 11/18/2021 6:31 PM) Impression 1. Necrotizing soft tissue infection involving the first digit and first second web interspace. 2. Ulcer plantar to the first MTP joint with adjacent 1.1 cm abscess. 3. Some fluid around the first MTP joint and tracking within the tendon sheath of the flexor hallucis longus concerning for septic joint and septic tenosynovitis. Findings were discussed with Anatoliy Oliva M.D., by Mario Camp at approximately 2030 hrs. Preliminary report signed by: Mario Camp at 11/18/2021 9:26 PM I have personally reviewed the image(s) and the resident's interpretation and agree with the findings, Wicho Michael MD at 11/19/2021 2:58 AM Thank you for letting us participate in the care of this patient. If you are a health care provider and have any questions regarding this report, please contact the number below. For patients who have questions please contact the health intensive care medicine specialist that requested your imaging first. Electronically signed by: Wicho Michael MD, [facility] ([phone]), at 11/19/2021 2:58 AM Inpatient Medications: Scheduled ??? vancomycin 1,250 mg Intravenous Q12H ??? Vancomycin Level - MAR Order Reminder NOT APPLICABLE Once ??? lisinopriL 40 mg Oral Daily ??? thiamine 100 mg Oral Daily ??? folic acid 1,000 mcg Oral Daily ??? PHENobarbitaL 0.48 mg/kg/dose ([place]) Oral BID Followed by ??? [START ON 11/23/2021] PHENobarbitaL 0.24 mg/kg/dose ([place]) Oral BID ??? piperacillin-tazobactam 3.375 g Intravenous Q8H ??? clindamycin 600 mg Intravenous Q8H ??? pantoprazole EC 40 mg Oral BID ??? sodium chloride 0.9 % (flush) 5 mL Intravenous BID ??? enoxaparin 40 mg Subcutaneous Nightly ??? senna-docusate 2 tablet Oral BID ??? ipratropium-albuteroL 3 mL Nebulization Q6H While awake ??? nicotine 1 patch Transdermal Daily And ??? Patch Verification 1 patch Transdermal BID And ??? nicotine 1 patch Transdermal Daily ??? busPIRone 15 mg Oral BID ??? metoproloL tartrate 25 mg Oral Q6H LUIS ??? gabapentin 600 mg Oral TID ??? mirtazapine 30 mg Oral Nightly Continuous infusions: PRN: midazolam (PF), fentaNYL (PF), HYDROmorphone OR HYDROmorphone OR HYDROmorphone, PHENobarbitaL, hydrOXYzine, sodium chloride 0.9 % (flush), lidocaine, acetaminophen, ondansetron OR ondansetron, melatonin, albuteroL, acetaminophen Assessment: Soledad Ramos??is a 66 y.o.??male??with hx of EtOH abuse with alcoholic neuropathy and chronic b/l foot wounds (previous osteomyelitis), prior left 4th- 5th amputations, COPD on 2 L O2 at home, opioid use disorder on methadone and mild cognitive impairment presented 11/18/21 for admission to [facility] (transferred from [facility] ED) at the request of the orthopedic surgery service for necrotizing soft tissue infection of the right foot/great toe. ?? 11/22- Pt alert and attempting to use the bed feliciano. Reports frustration being in the hospital. Cooperative, remains in shanelle vest due to impulsivity. Plan: #Necrotizing soft tissue infection s/p RIGHT 1st toe amp on 11/18/21 - CT right LE consistent with necrotizing soft tissue infection - Ortho consulted and following - Plan to return to OR today, 11/20 - Continue zosyn, clindamycin, vancomycin per guidelines - Wound cx with with Proteus mirabilis, strep milleri and Staph aureus- sensitives pending - Bone cx is negative to date - NWB to RLE - PT/OT ?? #opioid use disorder #EtOH abuse #peripheral neuropathy #post-op pain control #Acute alcohol withdrawal-suspected - Call patient's clinic ([facility], ) in AM to confirm 90 mg dose of methadone daily. Attempted to call today but closes at 12:30pm -dose confirmed; consider resumption following acute pain phase - hydromorphone SC every 3 hours PRN post-operatively with dose range for severity - acetaminophen 650 mg every 6 hours prn - home gabapentin 600 mg TID - Patient scoring on CIWA-low dose ativan transitioned to regular ativan scale -low threshold for transitioning to phenobarb -QTC prolonged-518, avoid prolonging agents with acute agitation ?? #COPD on 2L NC at baseline #tobacco use- current 1 pack per day smoker - nicotine patch 21 mg daily - duonebs every 6 hours while awak - PRN albuterol - NC O2 titrate to 90% SpO2 ?? #HTN - Resume home lisinopril 40mg daily - reduce home metop 150 mg daily to metop tartrate 25 mg every 6 hours - HOLD home furosemide as patient NPO - hydral as needed for SBP >180 ? #home medications - continue home pantoprazole 40 mg BID - continue home buspirone 30 mg BID - continue nightly mirtazapine 30 mg?? IV access/ MIVF PIV Tubes/ Drains Wound Vac DVT prophylaxis Lovenox PT/OT/PACKAGE LINE RELIEF OPERATOR ordered Wound care Per surgical team at this time Anticipated Disposition TBD Team Pager (MD Melo 02/12): [phone] Family Update Left VM for spouse 11/22 PCP LISA Levi APRN 11/22/2021 Uche Whaley MD - 11/22/2021 5:33 AM EDT ORTHOPAEDIC SURGERY INPATIENT PROGRESS NOTE Patient Name: Soledad Ramos Age: 66 y.o. Surgery/Issue: R great toe amputation Attending: Dr. Baker Date of surgery: 11/18/2021 SUBJECTIVE / INTERVAL HISTORY: Hypertensive to 156 overnight. Wound vac change 11/23. Withdrawing and on phenobarbital. Removed wound vac yesterday. Reports doing well this morning. PICC for poor vascular access pending. Abscess cultures growing GPCs and GNRs on gram stain only. Bone cultures NGTD. Remains clinda, vanc,and zosyn. OR 11/19 repeat I&D. FOCUSED REVIEW OF SYSTEMS: as above. Active Hospital Problems Diagnosis ? ? S/p right great toe amp, I&D, vac 11/18/21 (Diego) ??? Alcohol withdrawal syndrome, with delirium Resolved Hospital Problems No resolved problems to display. Active Non-Hospital Problems Diagnosis ??? Pruritic rash ??? Necrotizing soft tissue infection ??? Cellulitis of right foot ??? Acute osteomyelitis of right foot ??? Tightness of right gastrocnemius muscle ??? Edema of both lower extremities due to peripheral venous insufficiency ??? Functional gait abnormality ??? Noncompliance with treatment ??? Tobacco dependence syndrome ??? Chronic foot ulcer ??? Cellulitis ??? Tobacco user ??? Osteomyelitis ??? Neuropathic ulcer of toe of right foot with fat layer exposed ??? Neuropathic ulcer of foot, right, with fat layer exposed ??? Nausea ??? Fatigue ??? Patient has active durable power of oncology admin (DPOA) designee for healthcare ??? Methadone dependence ??? Minimal cognitive impairment ??? Claustrophobia ??? Hyperlipidemia ??? Avascular necrosis of humeral head ??? Pain in left shoulder ??? Verruca plantaris ??? Gastroesophageal reflux disease ??? Cirrhosis ??? Polysubstance abuse ??? Avascular necrosis bilateral knees ??? Depressive disorder ??? Neuropathy ??? Chronic obstructive lung disease ??? Edema ??? Essential hypertension ??? Confusion ??? Hepatitis C ??? Gout ??? Alcohol dependence ??? Anxiety ??? ADHD NOS ??? Chronic back pain ??? Major depressive disorder, single episode, unspecified MEDICATIONS: ??? Vancomycin Level - MAR Order Reminder ??? midazolam (pf) (Versed) (1 mg/mL) injection 1 mg ??? fentaNYL (PF) (50 mcg/mL) injection 50 mcg ??? HYDROmorphone (Dilaudid) (0.5 mg/0.5 mL) injection syringe 0.5 mg OR HYDROmorphone (Dilaudid) (0.5 mg/0.5 mL) injection syringe 0.6 mg OR HYDROmorphone (Dilaudid) (0.5 mg/0.5 mL) injection syringe 0.8 mg ??? lisinopriL (Zestril) tablet 40 mg ??? thiamine (Vitamin B1) tablet 100 mg ??? folic acid (Folvite) tablet 1,000 mcg ??? [COMPLETED] PHENobarbitaL (Luminal) tablet 64.8 mg FOLLOWED BY PHENobarbitaL (Luminal) tablet 32.4 mg FOLLOWED BY [START ON 11/23/2021] PHENobarbitaL (Luminal) tablet 16.2 mg ??? PHENobarbitaL (Luminal) (130 mg/mL) injection 318.5 mg ??? piperacillin-tazobactam (Zosyn) 3.375 g vial attach to sodium chloride 0.9% 50 mL Mini-Bag Plus ??? hydrOXYzine (Atarax) tablet 25 mg ??? clindamycin (Cleocin) 600 mg in dextrose 5% 50 mL infusion ??? pantoprazole EC (Protonix) tablet 40 mg ??? sodium chloride 0.9 % (flush) (BD PosiFlush Normal Saline 0.9) flush 5 mL ??? sodium chloride 0.9 % (flush) (BD PosiFlush Normal Saline 0.9) flush 5-20 mL ??? lidocaine (Xylocaine) 1% (10 mg/mL) injection 3 mg ??? enoxaparin (Lovenox) (40 mg/0.4 mL) subcutaneous injection 40 mg ??? acetaminophen (Tylenol) tablet 650 mg ??? senna-docusate (Pericolace) 8.6-50 mg per tablet 2 tablet ??? ondansetron (Zofran) tablet 4-8 mg OR ondansetron (pf) (Zofran) (2 mg/mL) injection 4-8 mg ??? melatonin tablet 3 mg ??? ipratropium-albuteroL (Duoneb) 0.5 mg-3 mg(2.5 mg base)/3 mL nebulizer solution 3 mL ??? albuteroL (Proventil) nebulizer solution 2.5 mg ??? nicotine (Nicoderm CQ) 21 mg/24 hr patch 21 mg AND nicotine (NICODERM CQ) 21 mg/24 hr patch Patch Verification AND nicotine (NICODERM CQ) 21 mg/24 hr patch Patch Removal ??? acetaminophen (Tylenol) tablet 650 mg ??? vancomycin (Vancocin) 1.5 gram in sodium chloride 0.9% 500 mL infusion ??? busPIRone (Buspar) tablet 15 mg ??? metoproloL tartrate (Lopressor) tablet 25 mg ??? gabapentin (Neurontin) capsule 600 mg ??? mirtazapine (Remeron) tablet 30 mg OBJECTIVE: Temp: [36.4 ??C (97.5 ??F)-37.2 ??C (99 ??F)] Heart Rate: [75-98] Resp: [14-25] BP: (132-202)/(68-119) Intake/Output Summary (Last 24 hours) at 11/22/2021 0533 Last data filed at 11/21/2021 2200 Gross per 24 hour Intake 841.9 ml Output 650 ml Net 191.9 ml Body mass index is 31.99 kg/m??. PE: General: awake/alert, responds to questions CV: RRR assessed peripherally Resp: Breathing comfortably on 2L NC RLE: Dressing c/d/i. Cellulitis to mid calf per alvarado Sensory intact to light touch in lat fem cut/fem, diminished in sural/saph/SP/DP/T distributions unchanged baseline neuroathy Motor intact to TA, ED, knee extension/flexion, hip extension/flexion Brisk capillary refill distally, foot warm/well-perfused, DP 2+ Lab Results Component Value Date NA 141 11/21/2021 K 3.3 (L) 11/21/2021 CL 104 11/21/2021 CO2 25 11/21/2021 BUN 6 (L) 11/21/2021 CREATININE 0.93 11/21/2021 GLUCOSE 89 11/21/2021 GLUCFASTING 95 03/14/2020 CALCIUM 8.8 11/21/2021 Lab Results Component Value Date WBC 8.2 11/21/2021 HGB 13.2 (L) 11/21/2021 HCT 38.9 (L) 11/21/2021 MCV 94.2 (H) 11/21/2021 PLATELET 285 11/21/2021 Lab Results Component Value Date INR 1.1 03/10/2020 ASSESSMENT / PLAN: Soledad Ramos is a 66 y.o. male 1 Day Post-Op s/p R 1st toe amputation. Doing well post-operatively. POD 3 repeat I&D. Activity: NWB RLE DVT prophylaxis: Recc lovenox Closure: Wet to dry Antibiotics: Per primary, continue vanco/clinda Uche Whaley MD 11/22/2021 Future Appointments Date Time Provider Department Center 01/15/2022 12:[address] [facility] [address] [facility] [address] [facility] Antoni Hurt MD - 11/21/2021 5:54 PM EDT Images from the original note were not included. Brief orthopedic progress note: A wound VAC change was performed at bedside. The patient had previously removed the wound VAC however there is a single black sponge remaining in the wound. This was removed demonstrating an erythematous wound base with no evidence of javier purulence. The wound measured 6 x 4 x 1.5 cm. A picture is below. The wound was irrigated with 1 L of sterile normal saline. Following this a wound VAC was reapplied using a total of 2 black sponges. The wound VAC was set to - 125 mmHg and found to have adequate suction. We will plan to go back to the operating room on Friday for a more formal debridement and possible closure versus wound VAC change. Antoni Hurt MD Padmini Shields APRN - 11/21/2021 5:10 PM EDT Hospital Medicine Daily Progress Note Admit Date: 11/18/2021 Hospital Day 3 days Active Hospital Problems Diagnosis ? ? S/p right great toe amp, I&D, vac 11/18/21 (Diego) ??? Alcohol withdrawal syndrome, with delirium Resolved Hospital Problems No resolved problems to display. 24 Hour Events: - Patient seen and evaluated in person at bedside - Still hypertensive although improved from yesterday, will re-evaluate after OR and repeat hydral if needed - not agitated or restrained this morning - On phenobarb now from ativan for withdrawal -Oral methadone dose confirmed 90mg daily (260mEq morphine daily) -Culture growing proteus mirabilis and staph aureus-pending sensitivities -Bone culture with NGTD - needs PICC or midline for poor vascular access--ordered and awaiting placement ROS: Denies GARCIA, fevers, chills, malaise, SOB, chest pain, N/V/D, constipation, edema, flank pain, dysuria. Physical Exam Vitals Range last 24 hrs Temperature Temp: [36.7 ??C (98.1 ??F)-37.2 ??C (99 ??F)] Heart Rate Heart Rate: [75-95] Blood Pressure BP: (132-183)/(68-113) Respiratory Rate Resp: [14-25] SpO2 SpO2: [87 %-98 %] Intake/Output Summary (Last 24 hours) at 11/21/2021 1717 Last data filed at 11/21/2021 1716 Gross per 24 hour Intake 721.9 ml Output -- Net 721.9 ml Patient Vitals for the past 168 hrs: Weight 11/18/21 2310 98.2 kg (216 lb 9.6 oz) BMI: Weight: 98.2 kg (216 lb 9.6 oz) (11/18/21 2310) Estimated Creatinine Clearance: 87.8 mL/min (based on SCr of 0.93 mg/dL). CONSTITUTIONAL: Awake, alert, mildly restless upon entering room. Not in acute distress. Breathing comfortably on room air and able to communicate in full sentences. HEENT: Normocephalic, atraumatic. Bilateral sclera anicteric. Oral mucous membranes moist. CHEST: S1S2, RRR, no murmurs, rubs, or clicks. LUNGS: Respiratory effort and expansion good, equal, and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 Patient denies chest pain, shortness of breath, nausea, vomiting. Reports footfeels tingly AM labs pending. Abscess cultures growing GPCs and GNRs on gram stain only. Bone cultures NGTD. Remains clinda, vanc,and zosyn. OR today for repeat I&D. FOCUSED REVIEW OF SYSTEMS: as above. Active Hospital Problems Diagnosis ? ? S/p right great toe amp, I&D, vac 11/18/21 (Diego) Resolved Hospital Problems No resolved problems to display. Active Non-Hospital Problems Diagnosis ??? Pruritic rash ??? Cellulitis ??? Osteomyelitis ??? Neuropathic ulcer of toe of right foot with fat layer exposed ??? Neuropathic ulcer of foot, right, with fat layer exposed ??? Patient has active durable power of oncology admin (DPOA) designee for healthcare ??? Methadone dependence ??? Minimal cognitive impairment ??? Claustrophobia ??? Hyperlipidemia ??? Avascular necrosis of humeral head ??? Pain in left shoulder ??? Verruca plantaris ??? Gastroesophageal reflux disease ??? Cirrhosis ??? Polysubstance abuse ??? Avascular necrosis bilateral knees ??? Depressive disorder ??? Neuropathy ??? Chronic obstructive lung disease ??? Edema ??? Essential hypertension ??? Confusion ??? Hepatitis C ??? Gout ??? Alcohol dependence ??? Anxiety ??? ADHD NOS ??? Chronic back pain ??? Major depressive disorder, single episode, unspecified MEDICATIONS: ??? Vancomycin Level - MAR Order Reminder ??? hydrOXYzine (Atarax) tablet 25 mg ??? LORazepam (Ativan) tablet 0.5-1.5 mg OR LORazepam (Ativan) tablet 0.5- 1.5 mg ??? clindamycin (Cleocin) 600 mg in dextrose 5% 50 mL infusion ??? pantoprazole EC (Protonix) tablet 40 mg ??? sodium chloride 0.9 % (flush) (BD PosiFlush Normal Saline 0.9) flush 5 mL ??? sodium chloride 0.9 % (flush) (BD PosiFlush Normal Saline 0.9) flush 5-20 mL ??? lidocaine (Xylocaine) 1% (10 mg/mL) injection 3 mg ??? enoxaparin (Lovenox) (40 mg/0.4 mL) subcutaneous injection 40 mg ??? acetaminophen (Tylenol) tablet 650 mg ??? senna-docusate (Pericolace) 8.6-50 mg per tablet 2 tablet ??? ondansetron (Zofran) tablet 4-8 mg OR ondansetron (pf) (Zofran) (2 mg/mL) injection 4-8 mg ??? melatonin tablet 3 mg ??? ipratropium-albuteroL (Duoneb) 0.5 mg-3 mg(2.5 mg base)/3 mL nebulizer solution 3 mL ??? albuteroL (Proventil) nebulizer solution 2.5 mg ??? HYDROmorphone (Dilaudid) (0.5 mg/0.5 mL) injection syringe 0.5 mg ??? nicotine (Nicoderm CQ) 21 mg/24 hr patch 21 mg AND nicotine (NICODERM CQ) 21 mg/24 hr patch Patch Verification AND nicotine (NICODERM CQ) 21 mg/24 hr patch Patch Removal ??? piperacillin-tazobactam (Zosyn) 3.375 g vial attach to sodium chloride 0.9% 50 mL Mini-Bag Plus ??? acetaminophen (Tylenol) tablet 650 mg ??? vancomycin (Vancocin) 1.5 gram in sodium chloride 0.9% 500 mL infusion ??? busPIRone (Buspar) tablet 15 mg ??? metoproloL tartrate (Lopressor) tablet 25 mg ??? gabapentin (Neurontin) capsule 600 mg ??? mirtazapine (Remeron) tablet 30 mg OBJECTIVE: Temp: [36.4 ??C (97.5 ??F)-36.9 ??C (98.4 ??F)] Heart Rate: [68-83] Resp: [16-20] BP: (110-186)/(63-106) No intake or output data in the 24 hours ending 11/20/21 0511 Body mass index is 31.99 kg/m??. PE: General: awake/alert, responds to questions CV: RRR assessed peripherally Resp: Breathing comfortably on 2L NC RLE: Dressing c/d/i, wound vac in place holding adequate suction. Cellulitis to mid calf per alvarado Sensory intact to light touch in lat fem cut/fem, diminished in sural/saph/SP/DP/T distributions unchanged baseline neuroathy Motor intact to TA, ED, knee extension/flexion, hip extension/flexion Brisk capillary refill distally, foot warm/well-perfused, DP 2+ Lab Results Component Value Date NA 139 11/19/2021 K 3.5 11/19/2021 CL 98 11/19/2021 CO2 34 (H) 11/19/2021 BUN 12 11/19/2021 CREATININE 0.98 11/19/2021 GLUCOSE 87 11/19/2021 GLUCFASTING 95 03/14/2020 CALCIUM 9.0 11/19/2021 Lab Results Component Value Date WBC 13.1 (H) 11/19/2021 HGB 12.7 (L) 11/19/2021 HCT 39.4 (L) 11/19/2021 MCV 99.0 (H) 11/19/2021 PLATELET 217 11/19/2021 Lab Results Component Value Date INR 1.1 03/10/2020 ASSESSMENT / PLAN: Soledad Ramos is a 66 y.o. male 2 Days Post-Op s/p R 1st toe amputation. Doing well post-operatively. Or today for repeat I&D. Please keep NPO. Activity: NWB RLE DVT prophylaxis: Recc lovenox Closure: Vac -125mmHg low continuous Antibiotics: Per primary, continue vanco/clinda Harley Raymond MD 11/20/2021 Future Appointments Date Time Provider Department Center 01/15/2022 12:[address] [facility] [address] [facility] [address] [facility] Rad Stephanie Pate RN - 11/19/2021 7:38 PM EDT OUTCOME EVALUATION NOTE: OUTCOME SUMMARY: A&Ox4, c/o anxiety, prn atarax given x1 VSS on RA C/o pain, prn dilaudid given Meds given per Mar IV ABX given WV at -125 continuous suction Worked w/ PT/OT, see notes for details Safety maintained PLAN MOVING FORWARD: NPO @ [facility] for wash out and debridement of right toe amp INDIVIDUALIZED FALL PREVENTION INTERVENTIONS: Patient-specific fall risk factors per assessment: [current deficits]: Pain, generalized weakness, IV, wound vac Assistance [level of assistance required for transfers and ambulation]: 1a w/ FWW NWB RLE Supervision [direct monitoring required during toileting and ADLs]: Hands on Surveillance [continuous indirect monitoring]: Purposeful rounding, call light within reach, roomnear unit station, bed alarm on Patient-specific fall prevention interventions for sensory deficits provided, if applicable: [X] N/A CPG GOAL OUTCOME EVALUATION: Christina Leonard OT - 11/19/2021 4:18 PM EDT Occupational Therapy Note Document Type: contact Total Minutes, Occupational Therapy: 0 Reason: 11/19/21 1617 Evaluation & Treatment Document Type contact Total Minutes, Occupational Therapy 0 Comment, Session Not Performed Order received. Chart reviewed. Checked in with PT, who evaluated Pt this morning. Pt able to get to/from bathroom with assistance. Plan to return to OR tomorrow. OT to follow up Friday. Pager: [phone] CHRISTINA LEONARD OT 11/19/2021 Occupational Therapy Rehabilitation Department Katey Dueñas PA - 11/19/2021 1:57 PM EDT Hospital Medicine Daily Progress Note Admit Date: 11/18/2021 Hospital Day 1 day Active Hospital Problems Diagnosis ? ? S/p right great toe amp, I&D, vac 11/18/21 (Diego) Resolved Hospital Problems No resolved problems to display. 24 Hour Events: - s/p OR for R great toe amputation overnight - pain is relatively well controlled with current regimen - had vancomycin infiltrate, IV team evaluated, received hyaluronidase - Wound cx with GPC and GNR - Plan for OR tomorrow ROS: Denies fever, chills, SOB, cough, CP, abdominal pain, nausea, vomiting, dysuria. Physical Exam Vitals Range last 24 hrs Temperature Temp: [36.1 ??C (97 ??F)-37 ??C (98.6 ??F)] Heart Rate Heart Rate: [86-99] Blood Pressure BP: (106-155)/(62-102) Respiratory Rate Resp: [12-20] SpO2 SpO2: [91 %-97 %] Intake/Output Summary (Last 24 hours) at 11/19/2021 1357 Last data filed at 11/18/2021 2230 Gross per 24 hour Intake 970 ml Output 20 ml Net 950 ml Patient Vitals for the past 168 hrs: Weight 11/18/212309 98.2 kg (216 lb 9.6 oz) BMI: Weight: 98.2 kg (216 lb 9.6 oz) (11/18/21 231) CrCl cannot be calculated (Unknown ideal weight.). CONSTITUTIONAL: awake, alert, not in acute distress, elderly male HEENT: pupils equal and round, conjunctiva w/o injection, neck supple CHEST: regular rate and rhythm LUNGS: mild wheeze with congestion improving cough consistent with smoking history no wheeze/crackles/rales, no cough, no respiratory distress ABDOMEN: soft, non tender, non distended, bowel sounds normoactive EXTREMITIES: moves all four extremities with intent, RIGHT foot with s/p 1st toe amp with wound vac in place SKIN: warm and dry NEURO: No focal deficit, CNII-XII intact, oriented x4 PSYCH: normal affect, no hallucinations, normal speech Studies reviewed in eDH. Remarkable for the following: LABS: Recent Labs 11/19/21 05 WBC 13.1* HGB 12.7* HCT 39.4* PLATELET 217 Recent Labs 11/19/21 0556 11/18/21 1725 NA 139 136 K 3.5 4.2 CL 98 96* CO2 34* 32* BUN 12 13 CREATININE 0.98 0.93 Recent Labs 11/18/21 1725 AST Not Perf ALT 8 ALKPHOS 91 BILITOT 0.4 BILIDIR Not Perf Recent Labs 11/19/21 0556 11/18/21 1725 CALCIUM 9.0 9.0 No results for input(s): PT, INR, PTT in the last 168 hours. No results for input(s): CK, TROPONINT in the last 168 hours. FSBG Trend No results for input(s): POCGLU in the last 72 hours. MICRO: No results for input(s): URINECULTURE in the last 720 hours. Recent Labs 11/18/212051 GRAMSTAIN Few Neutrophils seen No microorganisms seen. Results called to and read back by Sd Cedillo 11/18/21 23:17:24 VM Many Neutrophils seen Many Gram Positive Cocci seen Many Gram Negative Rods seen Results called to and read back by Sd Cedillo 11/18/21 23:16:50 VM * Many Neutrophils seen Many Gram Positive Cocci seen Many Gram Negative Rods seen Results called to and read back by Sd Cedillo 11/18/21 23:16:16 VM * No results for input(s): BLOODCX in the last 720 hours. ECG: No results for input(s): DIAGLINE, QTCCALC in the last 720 hours. VASCULAR: No results for input(s): VBTEXTRPT in the last 720 hours. IMAGING: Results for orders placed or performed during the hospital encounter of 11/18/21 CT Lower Extremity w Contrast Right (Exam End: 11/18/2021 6:31 PM) Impression 1. Necrotizing soft tissue infection involving the first digit and first second web interspace. 2. Ulcer plantar to the first MTP joint with adjacent 1.1 cm abscess. 3. Some fluid around the first MTP joint and tracking within the tendon sheath of the flexor hallucis longus concerning for septic joint and septic tenosynovitis. Findings were discussed with Anatoliy Oliva M.D., by Mario Camp at approximately 2030 hrs. Preliminary report signed by: Mario Camp at 11/18/2021 9:26 PM I have personally reviewed the image(s) and the resident's interpretation and agree with the findings, Wicho Michael MD at 11/19/2021 2:58 AM Thank you for letting us participate in the care of this patient. If you are a health care provider and have any questions regarding this report, please contact the number below. For patients who have questions please contact the health intensive care medicine specialist that requested your imaging first. Electronically signed by: Wicho Michael MD, [facility] ([phone]), at 11/19/2021 2:58 AM Inpatient Medications: Scheduled ??? [START ON 11/20/2021] Vancomycin Level - MAR Order Reminder NOT APPLICABLE Once ??? clindamycin 600 mg Intravenous Q8H ??? pantoprazole EC 40 mg Oral BID ??? sodium chloride 0.9 % (flush) 5 mL Intravenous BID ??? enoxaparin 40 mg Subcutaneous Nightly ??? senna-docusate 2 tablet Oral BID ??? ipratropium-albuteroL 3 mL Nebulization Q6H While awake ??? nicotine 1 patch Transdermal Daily And ??? Patch Verification 1 patch Transdermal BID And ??? nicotine 1 patch Transdermal Daily ??? piperacillin-tazobactam 3.375 g Intravenous Q8H ??? vancomycin 1.5 g Intravenous Q12H ??? busPIRone 15 mg Oral BID ??? metoproloL tartrate 25 mg Oral Q6H LUIS ??? gabapentin 600 mg Oral TID ??? mirtazapine 30 mg Oral Nightly Continuous infusions: PRN: sodium chloride 0.9 % (flush), lidocaine, acetaminophen, ondansetron OR ondansetron, melatonin, albuteroL, HYDROmorphone, acetaminophen Assessment: Soledad Ramos is a 66 y.o. male with hx of EtOH abuse with alcoholic neuropathy and chronic b/l foot wounds (previous osteomyelitis), prior left 4th-5th amputations, COPD on 2 L O2 at home, opioid usedisorder on methadone and mild cognitive impairment presented 11/18/21 for admission to [facility] (transferred from [facility] ED) at the request of the orthopedic surgery service for necrotizing soft tissue infection of the right foot/great toe. 11/19 - He underwent right first toe amputation on 11/18/21 with wound vac placement. He is being treated with clindamycin, vancomycin, zosyn pending final culture results. So far wound cx is growing GPCand GNR; bone cx is negative. Orthopedics is to take back to OR tomorrow 11/20 for repeat I&D andpossible closure Plan: #Necrotizing soft tissue infection s/p RIGHT 1st toe amp on 11/18/21 - CT right LE consistent with necrotizing soft tissue infection - Ortho consulted and following - Plan to return to OR tomorrow 11/20. NPO Midnight. - Continue zosyn, clindamycin, vancomycin per guidelines - Wound cx with GPC, GNR; final ID is pending - Bone cx is negative to date - NWB to RLE - PT/OT ?? #opioid use disorder #EtOH abuse #peripheral neuropathy #post-op pain control - Call patient's clinic ([facility], ) in AM to confirm 90 mg dose of methadone daily. Attempted to call today but closes at 12:30pm - hydromorphone SC every 4 hours PRN post-operatively - acetaminophen 650 mg every 6 hours prn - nerve block per anesthesia/OR plan - home gabapentin 600 mg TID - monitor for signs of EtOH withdrawal, no prior history of withdrawal per patient and ?? #COPD on 2L NC at baseline #tobacco use- current 1 pack per day smoker - nicotine patch 21 mg daily - duonebs every 6 hours while awak - PRN albuterol - NC O2 titrate to 90% SpO2 ?? #HTN - HOLD home lisinopril for soft blood pressures - reduce home metop 150 mg daily to metop tartrate 25 mg every 6 hours - HOLD home furosemide as patient NPO/hypotensive ? #home medications - continue home pantoprazole 40 mg BID - continue home buspirone 30 mg BID - continue nightly mirtazapine 30 mg ?? IV access/ MIVF PIV Tubes/ Drains DVT prophylaxis enoxaparin PT/OT/PACKAGE LINE RELIEF OPERATOR consulted Wound care Anticipated Disposition TBD Team Pager (MD Coverage 02/12): [phone] Family Update Family updated at bedside 11/19 PCP LISA Levi PA 11/19/2021 Estefani Juarez RN - 11/19/2021 11:58 AM EDT Images from the original note were not included. 11/19/21 115 [REMOVED] Peripheral IV Line - Single Lumen 11/18/21 180 cephalic vein (lateral side of arm), left 20 gauge Removal Date/Time: 11/19/21 1154 Placement Date/Time: 11/18/211806 Location: cephalic vein (lateralside of arm), left Device: [id number] catheter system Technique: Anatomical Landmarks Ultrasound Imaging: US Not Used Gauge/Length: 20 gau... Site Preparation/Maintenance dressing: dry and intact;dressing: transparent semipermeable applied Securement catheter stabilization device, secured with Patency/Maintenance alcohol impregnated cap applied Phlebitis 0-->no symptoms Infiltration 2-->skin blanched, edema 1 - 6 inches in any direction, cool to touch, with or without pain Site Signs/Symptoms swelling;pain;extremity circumference increased;no redness;no warmth;no palpablecord;no streak formation;no drainage Interventions other (see comments) (removed) Extravasation Type irritant Extravasation Interventions antidote instilled;catheter/needle/device removed;extremity elevated;provider notified Infiltration/Extravasation Scale Soledad Ramos [id number] 149/149-A Infiltration appearance: Requested to evaluate possible LUE vancomycin infiltrate. Infiltration harm % for this extremity 20%. Based on measurement calculation (greatest measurement Xdivided by length of extremity multiplied by 100= %) Considerations and Hansen: Consider the following: If the percentage of limb affected is <5% then select 1 If the percentage of limb affected is 6-25% then select 2 If the percentage of limb affected is 26-49% then select 3 If the percentage of limb affected is > 50% then always select 4 0 No symptoms 1 Skin blanched Edema < 1 inch (2.5 cm) in any direction Cool to touch With or without pain 2 Skin blanched Edema 1 to 6 inches (2.5 to 15 cm) in any direction With pain 3 Skin blanched, translucent Gross edema > 6 inches (15 cm) in any direction Cool to touch Mild to moderate pain Possible numbness 4 Skin blanched, translucent Skin tight, leaking Skin discolored, bruised, swollen Gross edema > 6 inches in any direction Deep pitting tissue edema Circulatory impairment Moderate to severe pain Skin Blisters Skin Necrosis/Breakdown/Sloughing Infiltration appearance score: 2 Medication Name infiltrated is vancomycin which is a (n) irritant Location of infiltration:left arm: anterior & posterior Measurement in cm of length and width of affected area---Affected extremity 14 cm L x 14 cm W Measurement of Circumference in cm of Infiltrated area of affected extremity 29 cm at 6 cm below AC Measurement of Circumference in cm of Unaffected extremity 28 cm at 6 cm below AC (at same location as affected extremity) Pulses present on affected extremity yes Medicated treatment given per policy/ order: hyaluronidase Plan for continued monitoring of infiltration/extravasation Name of MD contacted medicine team paged 11:58 AM Name of RN contacted RN at bedside 11:58 AM Name of Pharmacist if consulted n/a 11:58 AM Plastics Provider contacted: no 11:58 AM Name of Plastics MD (if consulted) (Mandatory photo for infiltrations/ extravasations scoring a stage 2 or greater, but recommended forstage 1. Include measuring tape and identifier in the photo) GROUNDSKEEPING MAINTENANCE CARING FOR THIS PATIENT WILL CONTINUE TO MONITOR AND WILL ASSUME CARE, VASCULAR ACCESS WILL NOT FOLLOW THIS EVENT AT THE SIGNING OF THIS NOTE. Radha Pierre, PT - 11/19/2021 11:06 AM EDT Physical Therapy Evaluation Patient profile: Soledad Ramos is a 66 y.o. male EtOH abuse with alcoholic neuropathy and chronic b/l foot wounds (previous osteomyelitis), prior left 4th- 5th amputations, COPD on 2 L O2 at home, opioid use disorder on methadone and mild cognitive impairment presenting for admission from the [facility] (transferred from [facility] ED) at the request of the orthopedic surgery service for necrotizing soft tissue infection of the right foot/great toe. Pt now s/p R great toe amputation (11/18/21). Patient with the following active problems: Past Medical History: Diagnosis Date ??? Ankle fracture, left 06/13/2015 ??? Cirrhosis Chronic HCV and history of alcohol use ??? Community acquired pneumonia 08/19/2012 ??? COPD (chronic obstructive pulmonary disease) ??? Depression ??? GERD (gastroesophageal reflux disease) ??? Hepatitis C ??? Hip pain 02/22/2016 ??? HTN (hypertension) ??? Knee pain 02/22/2016 ??? Retention of urine 09/07/2015 ??? s/p L 4th ray amp for osteo, 03/10/2020 Joshua 03/10/2020 ??? S/P L TKA 12/13/15 Dr. Mallory 12/13/2015 ??? SDH (subdural hematoma) 05/07/2019 Past Surgical History: Procedure Laterality Date ??? PRO AMPUTATION FOOT, TRANSMETATARSAL Left 03/10/2020 AMPUTATION, TRANSMETATARSAL (WRVU 12.71) performed by Geovanna Lewis MD at [facility] MAIN OR ??? PRO AMPUTATION TOE, MT-P JT Right 11/18/2021 AMPUTATION TOE, METATARSO-PHALANGEAL JOINT (WRVU 5.82) performed by Sammy Baker MD at [facility] ??? PRO TOTAL KNEE ARTHROPLASTY Left 12/13/2015 @TOTAL KNEE ARTHROPLASTY performed by Grodon Mallory MD at [facility] MAIN OR ??? PRO UPPER GI ENDOSCOPY, DIAGNOSTIC Bilateral 08/17/2015 EGD, UPPER GI ENDOSCOPY performed by Trev Hong MD at [facility] ENDOSCOPY ??? REVISION TOTAL HIP ARTHROPLASTY bilateral for hip AVN ??? SPINE SURGERY Active Non-Hospital Problems Diagnosis ??? Pruritic rash ??? Cellulitis ??? Osteomyelitis ??? Neuropathic ulcer of toe of right foot with fat layer exposed ??? Neuropathic ulcer of foot, right, with fat layer exposed ??? Patient has active durable power of oncology admin (DPOA) designee for healthcare ??? Methadone dependence ??? Minimal cognitive impairment ??? Claustrophobia ??? Hyperlipidemia ??? Avascular necrosis of humeral head ??? Pain in left shoulder ??? Verruca plantaris ??? Gastroesophageal reflux disease ??? Cirrhosis ??? Polysubstance abuse ??? Avascular necrosis bilateral knees ??? Depressive disorder ??? Neuropathy ??? Chronic obstructive lung disease ??? Edema ??? Essential hypertension ??? Confusion ??? Hepatitis C ??? Gout ??? Alcohol dependence ??? Anxiety ??? ADHD NOS ??? Chronic back pain ??? Major depressive disorder, single episode, unspecified Social History: Home set-up: pt lives with in a split level home with 2 ZEINAB with no rails and then 8 ZEINAB with 1rail Bathroom Set-up: tub shower with no chair Stairs: 2 ZEINAB with no rails and then 8 ZEINAB with 1 rail Baseline Mobility: independent with ADLs, ambulates with cane, completes IADLs, manages medications, pt sleeps in manual recliner, on 2L home O2 Equipment at home: standard walker, manual w/c, knee scooter, cane Fall history: 1 fall in the past 6 months Precautions/Special Considerations: high fall risk, regular diet, PIV, NWB R LE, wound vac, supplemental oxygen Mobility and Positioning Recommendations: ?? Pt. to utilize FWW and CGA x 1 for ambulation and transfers with nursing. Second assist as neededfor line management. ?? Please encourage up to chair for meal times as able. ?? Pt encouraged to ambulate frequently with staff, getting into the bathroom for toileting, do not progress ambulation out in hallway at this time in order to preserve skin integrity on L LE which is also high risk for skin breakdown. Subjective: ???I can't even look at it, it makes me sick it's so gross.?? - referring to his R great toe amputation with wound vac Objective: Pt seen for evaluation today. Pain: at rest pt reported 4/10 pain at R great toe amputation site, pain increased with ambulation and was throbbing per pt report, no intensity number given; pain reduced with elevated and modified activity Vital Signs: received on 3L NC SpO2 98%, reduced to 2L NC SpO2 maintained > 92%, discussed with RN pt may be appropriate to try to wean while awake especially at rest Mental Status: alert, oriented to person, place, and time Vision: WFL Skin: R great toe amputation site with wound vac in place, R distal LE red and swollen (has line to rashid redness), L 4th and 5th toes amputated; see bead machine operator for details Musculoskeletal: ROM: WFL Strength: WFL, B LEs grossly 3+/5 Sensation: not assessed Bed Mobility: Supine to Sit: HOB slightly elevated, pt sleeps in recliner at home, supervision Sit to Supine: not assessed, pt left seated in bedside recliner at end of session Transfers: Sit to Stand: CGA up to FWW Stand to Sit: very poor eccentric control, Orville Bed to Chair: not assessed Gait: Distance: 25ft Device used: FWW Level of assist: CGA Gait mechanics: pt demonstrated slow gait speed, maintained R LE NWB fairly well (needed to rest heel on the ground intermittently between hops d/t impaired strength), poor eccentric control hopping onL LE, no overt LOB Stairs: not assessed Balance: Sitting Static: good Sitting Dynamic: good Standing Static: requires CGA and B UE support on FWW Standing Dynamic / Gait: Requires CGA and B UE support on FWW Education: patient and significant other has been educated on Bed mobility, Transfers, Assistive device/technique, Stairs, Positioning, Safety , Precautions/protocol, Gait , Activity pacing/Energy conservation, Role of therapy, Balance and Discharge planning and verbalizes understanding. Patient status, treatment, and mobility recommendations discussed with nursing. Assessment: Soledad Ramos was seen today for physical therapy evaluation. Pt is a 66 year old male EtOH abuse with alcoholic neuropathy and chronic b/l foot wounds (previous osteomyelitis), prior [id number] amputations, COPD on 2 L O2 at home, opioid use disorder on methadone and mild cognitive impairment presenting for admission from the [facility] (transferred from [facility] ED) at the request of the orthopedic surgery service for necrotizing soft tissue infection of the right foot/great toe. Pt now s/p R great toe amputation (11/18/21). Pt presents with impaired skin integrity, functional strength, balance, endurance, activity tolerance and pain. Due to these impairments and R LE NWB status,pt is unable to perform transfers, ambulation and stairs independently. Pt was able to ambulate 25ftwith FWW and CGA on 3L NC. Suspect after R great toe amp closure and I & D planned for 11/20/21, pts WB status may be upgraded to heel WB only and may increase pts independence with functional mobility. Pt has 2 ZEINAB without rails and then 8 ZEINAB with 1 rail, which would be difficult for pt to negotiate with R LE NWB status, however if pt upgraded to heel WB status pt may be able to complete with crutches (?) and CGA-Orville from . Pt is not cleared from PT at this time. Suspect pt will be able to discharge home with supervision after 1-3 more PT sessions, needs FWW, and follow up with home PT. Plan to see pt 11/21/21 for next PT session. The pt would benefit from skilled therapy services while in the hospital to maximize functional abilities. Discharge Recommendations: Based on the current findings, Anticipated Discharge Disposition (PT): home with home health, to be determined pending medical status & functional progression when medically ready for hospital discharge. Consult Recommendations: No other consults recommended at this time. Equipment needs: Anticipated Equipment Needs at Discharge (PT): walker, front wheeled Goals: To be achieved by 11/28/21: 1. Pt. to demonstrate knowledge of safety limitations and precautions and will appropriately requestassistance for functional activities and to mobilize. 2. Pt. to perform SPT independently using a front wheeled walker. 3. Pt. to ambulate 50 feet independently using a front wheeled walker. 4. Pt. to ambulate up/down 2 step/stairs using axillary crutches with CGA. 5. Pt to ambulate up/down 8 steps/stairs using 1 rail and 1 crutch with CGA. 6. Family or caregiver to demonstrate understanding of therapeutic interventions to support the careof the patient. 7. Pt will tolerate progression towards upright with stable vital signs. Plan: Therapy Frequency (PT): 1-3 more times for therapy including balance training, gait training, home exercise program, patient/family education, postural re-education, stair training, strengtheningand transfer training. Patient/family understands and agrees with plan as stated above. PT Evaluation Code Rationale: ?? Diagnosis & Pertinent Co-Morbidities, personal factors, and present illness affecting Plan ofCare: (see above); Additional personal factors or co- morbidities that impact plan: ?? Total # of Factors: 0 1-2 3+ x ?? Examination of body system impairments, functional limitations and behaviors, and/or participation restrictions. Addressing 1-2 elements Addressing 3 + elements x Addressing 4 + elements ?? Clinical presentation: See assessment above. Stable/Uncomplicated Evolving/Fluctuating Symptoms Unstable/Unpredictable x ?? Clinical decision making of moderate complexity based on pt's functional performance as outlined in this evaluation. Time IN / OUT: 8706-7761 Total Minutes, Physical Therapy: 37 Billing Code: Evaluation Radha Pierre, PT Pager: [phone] Physical Therapy Inpatient Rehabilitation Department Harley Raymond MD - 11/19/2021 5:32 AM EDT ORTHOPAEDIC SURGERY INPATIENT PROGRESS NOTE Patient Name: Soledad Ramos Age: 66 y.o. Surgery/Issue: R great toe amputation Attending: Dr. Baker Date of surgery: 11/18/2021 SUBJECTIVE / INTERVAL HISTORY: AF, VSS overnight. Pain well controlled. Patient denies chest pain, shortness of breath, nausea, vomiting. Reports footfeels tingly AM labs pending. Abscess cultures growing GPCs and GNRs on gram stain only. Bone cultures NGTD. Remains clinda, vanc,and zosyn. No OR with ortho today. FOCUSED REVIEW OF SYSTEMS: as above. Active Hospital Problems Diagnosis ? ? S/p right great toe amp, I&D, vac 11/18/21 (Diego) Resolved Hospital Problems No resolved problems to display. Active Non-Hospital Problems Diagnosis ??? Pruritic rash ??? Cellulitis ??? Osteomyelitis ??? Neuropathic ulcer of toe of right foot with fat layer exposed ??? Neuropathic ulcer of foot, right, with fat layer exposed ??? Patient has active durable power of oncology admin (DPOA) designee for healthcare ??? Methadone dependence ??? Minimal cognitive impairment ??? Claustrophobia ??? Hyperlipidemia ??? Avascular necrosis of humeral head ??? Pain in left shoulder ??? Verruca plantaris ??? Gastroesophageal reflux disease ??? Cirrhosis ??? Polysubstance abuse ??? Avascular necrosis bilateral knees ??? Depressive disorder ??? Neuropathy ??? Chronic obstructive lung disease ??? Edema ??? Essential hypertension ??? Confusion ??? Hepatitis C ??? Gout ??? Alcohol dependence ??? Anxiety ??? ADHD NOS ??? Chronic back pain ??? Major depressive disorder, single episode, unspecified MEDICATIONS: ??? clindamycin (Cleocin) 600 mg in dextrose 5% 50 mL infusion ??? pantoprazole EC (Protonix) tablet 40 mg ??? sodium chloride 0.9 % (flush) (BD PosiFlush Normal Saline 0.9) flush 5 mL ??? sodium chloride 0.9 % (flush) (BD PosiFlush Normal Saline 0.9) flush 5-20 mL ??? lidocaine (Xylocaine) 1% (10 mg/mL) injection 3 mg ??? enoxaparin (Lovenox) (40 mg/0.4 mL) subcutaneous injection 40 mg ??? acetaminophen (Tylenol) tablet 650 mg ??? senna-docusate (Pericolace) 8.6-50 mg per tablet 2 tablet ??? ondansetron (Zofran) tablet 4-8 mg OR ondansetron (pf) (Zofran) (2 mg/mL) injection 4-8 mg ??? melatonin tablet 3 mg ??? ipratropium-albuteroL (Duoneb) 0.5 mg-3 mg(2.5 mg base)/3 mL nebulizer solution 3 mL ??? albuteroL (Proventil) nebulizer solution 2.5 mg ??? HYDROmorphone (Dilaudid) (0.5 mg/0.5 mL) injection syringe 0.5 mg ??? HYDROmorphone (Dilaudid) (0.5 mg/0.5 mL) injection syringe 0.5 mg ??? nicotine (Nicoderm CQ) 21 mg/24 hr patch 21 mg AND nicotine (NICODERM CQ) 21 mg/24 hr patch Patch Verification AND nicotine (NICODERM CQ) 21 mg/24 hr patch Patch Removal ??? piperacillin-tazobactam (Zosyn) 3.375 g vial attach to sodium chloride 0.9% 50 mL Mini-Bag Plus ??? acetaminophen (Tylenol) tablet 650 mg ??? vancomycin (Vancocin) 1.5 gram in sodium chloride 0.9% 500 mL infusion ??? busPIRone (Buspar) tablet 15 mg ??? metoproloL tartrate (Lopressor) tablet 25 mg ??? gabapentin (Neurontin) capsule 600 mg ??? mirtazapine (Remeron) tablet 30 mg OBJECTIVE: Temp: [36.1 ??C (97 ??F)-37 ??C (98.6 ??F)] Heart Rate: [86-99] Resp: [12-20] BP: (106-155)/(62-102) Intake/Output Summary (Last 24 hours) at 11/19/2021 0532 Last data filed at 11/18/2021 2230 Gross per 24 hour Intake 970 ml Output 20 ml Net 950 ml Body mass index is 31.99 kg/m??. PE: General: awake/alert, responds to questions CV: RRR assessed peripherally Resp: Breathing comfortably on 3L NC RLE: Dressing c/d/i, wound vac in place holding adequate suction. Cellulitis to mid calf is improving permarks Sensory intact to light touch in lat fem cut/fem, diminished in sural/saph/SP/DP/T distributions unchanged baseline neuroathy Motor intact to TA, ED, knee extension/flexion, hip extension/flexion Brisk capillary refill distally, foot warm/well-perfused, DP 2+ Lab Results Component Value Date NA 136 11/18/2021 K 4.2 11/18/2021 CL 96 (L) 11/18/2021 CO2 32 (H) 11/18/2021 BUN 13 11/18/2021 CREATININE 0.93 11/18/2021 GLUCOSE 113 11/18/2021 GLUCFASTING 95 03/14/2020 CALCIUM 9.0 11/18/2021 Lab Results Component Value Date WBC 10.2 (H) 03/14/2020 HGB 12.9 (L) 03/14/2020 HCT 39.0 (L) 03/14/2020 MCV 93.5 (H) 03/14/2020 PLATELET 398 (H) 03/14/2020 Lab Results Component Value Date INR 1.1 03/10/2020 ASSESSMENT / PLAN: Soledad Ramos is a 66 y.o. male 1 Day Post-Op s/p R 1st toe amputation. Doing well post-operatively. Will likely return to OR tomorrow for repeat I&D and possible closure. CAN EAT TODAY. Please make NPO at midnight. Activity: NWB RLE DVT prophylaxis: Recc lovenox Closure: Vac -125mmHg low continuous Antibiotics: Per primary, continue vanco/clinda Harley Raymond MD 11/19/2021 Future Appointments Date Time Provider Department Center 01/15/2022 12:[address] [facility] [address] [facility] Rad Araceli Lee RN - 11/18/2021 11:34 PM EDT Patient arrived to [facility] via bed from PACU s/p R great toe amputation. Patient AOx 4, HR90s, lung sounds diminised/wheezy, lbm 7/9 per pt, pt voiding spontaneously. +csmt to all extremities, R foot wound vac to -125 and intact. Pt experiencing numbness in R foot but pedal pulse palpable. Color remains red/kishor. IV site is WDL. Pain6/10 at this time. Patient oriented to room, call romero to bedside, please see flowsheet for full assessment. Araceli Lee RN\ Amy Carrion RN - 11/18/2021 9:32 PM EDT 2122: Soledad Ramos arrives from OR 5 on bed to PACU 14. Placed patient on monitor with parameters adjusted to be appropriate for patient with alarms on and active. 2214: Patient meets PACU discharge criteria. Verbal report called to [facility] nurse, Ifeanyi. Plans for transport per protocol to [facility]. documented in this encounter H&P Notes Jarad Flores MD - 11/25/2021 5:44 AM EDT Patient Name: Soledad Ramos Patient Age: 66 y.o. Birthdate: 1955 Admit date: 11/18/2021 Attending Physician: Afshin Rogers MD The patient's history and physical exam have been reviewed and completed.There has there is no change since the H&P done admission. Please see H&P and morning progress notes for more details. Exam: NAD, AOx3 RRR with no MRG Lungs CTAB with no wheeze, rhonchi, or rales OR plan for today: right great toe amputation site I&D with possible closure Edi Childress MD Orthopaedic Surgery Pager [phone] I saw and evaluated the patient on the date of the primary author's note. I have reviewed and agree with the findings and the plan of care as outlined in their note, with thefollowing additions or alterations: More alert this AM. Plan for repeat I+D, reamputation first metatarsal and hopeful closure discussed. OR today. Jarad Flores MD, MS Orthopaedic Surgery Attending Jarad Flores MD - 11/23/2021 5:22 AM EDT 24-HOUR H&P UPDATE Soledad Ramos was seen and evaluated. Patient continues to be delirious in restraints. Denies angina, dyspnea, fevers, chills, or malaise within the last 14 days. All questions were answered. Stable for surgery as scheduled. Alert and oriented RR, tachycardic CTAB Soledad Ramos is a 66 y.o. male pended for R foot I&D. Harley Raymond MD Orthopaedic Surgery [facility] I saw and evaluated the patient on the date of the primary author's note. I have reviewed and agree with the findings and the plan of care as outlined in their note, with thefollowing additions or alterations: I saw the patient on the floor. He was in restraints. He was not, at the time I saw him alert and oriented. I did check with Dr. Baker, who saw him on Friday at the time of his first amputation, who noted that he was alert at that point and able to consent himself. I reviewed the consent which includes the intended procedure for today: Irrigation debridement, high level amputation of his first metatarsal, and possible closure. Plan for OR today. Jarad Flores MD, MS Orthopaedic Surgery Attending T Antoni Hurt MD - 11/21/2021 6:05 AM EDT The patient's history and physical exam have been reviewed and completed. There has been no intervalchange from that of the pre-operative history and physical exam done within the last 30 days. Gen: Well-appearing male CV: Regular rate and rhythm, no murmurs, rubs, gallops Pulm: No increased work of breathing, clear to auscultation bilaterally Plan to proceed to OR for I&D Right great toe wound. Antoni Hurt MD Harley Raymond MD - 11/20/2021 5:13 AM EDT 24-HOUR H&P UPDATE Soledad Ramos was seen and evaluated. No interval events or changes in health status since preoperative H+P. Denies angina, dyspnea, fevers, chills, or malaise within the last 14 days. All questions were answered. Stable for surgery as scheduled. Alert and oriented RRR CTAB Soledad Ramos is a 66 y.o. male pended for R foot I&D. All questions were answered. I reviewed consent and ensured the patient was properly marked. Harley Raymond MD Orthopaedic Surgery [facility] Valentina Montoya MD - 11/18/2021 5:49 PM EDT Images from the original note were not included. Hospital Medicine Admission History and Physical Patient Name: SOLEDAD RAMOS Date of : 1955 Age: 66 y.o. Hospital Admit Date: 11/18/2021 Inpatient Attending: Valentina Montoya MD PCP: Brian Fall APRN Presenting Diagnosis/Chief Complaint: NSTI right foot History of Present Illness: Soledad Ramos is a 66 y.o. male with hx of EtOH abuse with alcoholic neuropathy and chronic b/l foot wounds(previous osteomyelitis), prior left 4th-5th amputations, COPD on 2 L O2 at home, opioid use disorder on methadone and mild cognitive impairment presenting for admission from the [facility] (transferred from [facility] ED) at the request of the orthopedic surgery service for necrotizing soft tissue infection of the right foot/great toe. History obtained from patient and chart review . Soledad relates that he initially presented to [facility] this AM after rapid progression of his chronic toe wounds over night. States he went to be on 11/17 in his usual state of health and when hewoke up this AM his right great toe/foot and leg developed progressive redness and swelling and he had developed a black spot on his right great toe. Patient related feeling pain in that toe/foot as well which is abnormal as his baseline is almost no feeling in his feet at all. He denies any fevers orchills. He presented to [facility] where his labs were significant for a WBC 23k, Cr 1.1, Hgb 13, Glucose 117, Na 137, CRP unknown (not obtained). He was administered clindamycin and Vancomycin [facility] and recommended transfer to [facility] ED for further work-up and evaluation for potential necrotizing infection given his history of a rapidly progressing skin infection with areas concerning for necrosis. He was evaluated here upon arrival in the ED by theorthopedic team and their suspicions are confirmed by exam. They have ordered a CT and plan to take the patient to the OR in the next 6 hours. They have asked hospital medicine to admit patient given his medical complexity and multiple co-morbidities. Review of Systems(Positives in Bold): General: fevers, chills, night sweats; recent weight changes; fatigue EENT: changes in vision; changes in hearing; rhinorrhea, congestion, sinus pain, sore throat Cardiovascular: chest pain; palpitations; dizziness or lightheadedness, edema Respiratory: SOB, CUNHA , cough,wheeze GI: abdominal pain; nausea, vomiting, diarrhea, or constipation, blood in stool : dysuria; urgency, frequency, hesitancy Musculoskeletal: Right great toe/foot/leg redness, edema Endocrine: heat or cold intolerace; polyuria/polydipsia Heme: easy bruising or bleeding Neuro: headaches; numbness or tingling; weakness;incoordination Psych: mood good Past Medical History: Past Medical History: Diagnosis Date ??? Ankle fracture, left 06/13/2015 ??? Cirrhosis Chronic HCV and history of alcohol use ??? Community acquired pneumonia 08/19/2012 ??? COPD (chronic obstructive pulmonary disease) ??? Depression ??? GERD (gastroesophageal reflux disease) ??? Hepatitis C ??? Hip pain 02/22/2016 ??? HTN (hypertension) ??? Knee pain 02/22/2016 ??? Retention of urine 09/07/2015 ??? s/p L 4th ray amp for osteo, 03/10/2020 Gitajn 03/10/2020 ??? S/P L TKA 12/13/15 Dr. Mallory 12/13/2015 ??? SDH (subdural hematoma) 05/07/2019 Patient Active Problem List Diagnosis Code ??? Alcohol dependence F10.20 ??? Anxiety F41.9 ??? ADHD NOS F90.9 ??? Chronic back pain M54.9, G89.29 ??? Major depressive disorder, single episode, unspecified F32.9 ??? Hepatitis C B19.20 ??? Confusion R41.0 ??? 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 Polysubstance abuse F19.10 ??? Cirrhosis K74.60 ??? 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 Pain in left shoulder M25.512 ??? Neuropathic ulcer of foot, right, with fat layer exposed L97.512 ??? Neuropathic ulcer of toe of right foot with fat layer exposed L97.512 ??? Osteomyelitis M86.9 ??? Cellulitis L03.90 ??? Chronic obstructive lung disease J44.9 ??? Claustrophobia F40.240 ??? Depressive disorder F32.A ??? Edema R60.9 ??? Essential hypertension I10 ??? Gastroesophageal reflux disease K21.9 ??? Gout M10.9 ??? Hyperlipidemia E78.5 ??? Methadone dependence F11.20 ??? Minimal cognitive impairment G31.84 ??? Neuropathy G62.9 ??? Patient has active durable power of oncology admin (DPOA) designee for healthcare [id number] ??? Verruca plantaris B07.0 ??? Pruritic rash L28.2 ??? Necrotizing fasciitis M72.6 Past Surgical History: Past Surgical History: Procedure Laterality Date ??? PRO AMPUTATION FOOT, TRANSMETATARSAL Left 03/10/2020 AMPUTATION, TRANSMETATARSAL (WRVU 12.71) performed by Geovanna Lewis MD at [facility] MAIN OR ??? PRO TOTAL KNEE ARTHROPLASTY Left 12/13/2015 @TOTAL KNEE ARTHROPLASTY performed by Gordon Mallory MD at [facility] MAIN OR ??? PRO UPPER GI ENDOSCOPY, DIAGNOSTIC Bilateral 08/17/2015 EGD, UPPER GI ENDOSCOPY performed by Trev Hong MD at [facility] ENDOSCOPY ??? REVISION TOTAL HIP ARTHROPLASTY bilateral for hip AVN ??? SPINE SURGERY Social History: Social History Socioeconomic History ??? Marital status: Spouse name: Not on file ??? Number of children: Not on file ??? Years of education: Not on file ??? Highest education level: Not on file Occupational History ??? Not on file Tobacco Use ??? Smoking status: Current Every Day Smoker Packs/day: 1.00 Years: 42.00 Pack years: 42.00 Types: Cigars, Cigarettes ??? Smokeless tobacco: Never Used ??? Tobacco comment: a pack or less a day Vaping Use ??? Vaping Use: Never used Substance and Sexual Activity ??? Alcohol use: Yes Alcohol/week: 22.0 - 23.0 standard drinks Types: 21 Standard drinks or equivalent, 1 - 2 Cans of beer per week ??? Drug use: Yes Types: Marijuana ??? Sexual activity: Not on file Comment: deferred Other Topics Concern ??? Not on file Social History Narrative Pt grew up in [place]. Pt has lived [place]. 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 Pt has been exposed to wood dust. No TB Exposure. Pt currently has lived in his home for 30 years, hardwood floor, heated by oile, hot air. Pt has long haired dog. No VNA services at this time. Social Determinants of Health Financial Resource Strain: Not on file Food Insecurity: Not on file Transportation Needs: Not on file Physical Activity: Not on file Housing Stability: Not on file Patient lives with his in [place]. Former radiological technician. Current everyday smoker of 1 pack a day for most of his life. He used to be a heavy drinker but now only drinks 2 twisted teas a day. No history of withdrawal or seizures. Smokes marijuana every micky for his nerves and to help him sleep. Family History: Family History Problem Relation Age of Onset ??? Cancer Father ??? Osteoarthritis Mother ??? Cancer Paternal Uncle ??? Cancer Paternal Grandmother Allergies: Allergies Allergen Reactions ??? Morphine Other (See Comments) STATES THAT IT DOES NOT TAKE HIS PAIN AWAY Medications: No current facility-administered medications on file prior to encounter. Current Outpatient Medications on File Prior to Encounter Medication Sig Dispense Refill ??? metoprolol succinate XL (Toprol-XL) 50 mg Tablet Sustained Release 24 hr Take 50 mg by mouth daily. Take with 100 mg tablet for 150 mg dose ??? pantoprazole EC (Protonix) 40 mg Tablet, Delayed Release (E.C.) Take 40 mg by mouth 2 times daily. ??? ondansetron ODT (Zofran-ODT) 8 mg Tablet, Rapid Dissolve dissolve 1 tablet ON TONGUE twice a dayif needed ??? lisinopriL (Prinivil;Zestril) 40 mg Tablet Take 1 tablet by mouth daily. 90 tablet 3 ??? furosemide (Lasix) 40 mg Tablet Take 80 mg by mouth daily. ??? buspirone HCl (BUSPIRONE ORAL) Take 15 mg by mouth 2 times daily. ??? methadone HCl (METHADONE ORAL) Take 82 mg by mouth daily. ??? meTOPROLOL succinate (TOPROL-XL) 100 mg Tablet Sustained Release 24 hr Take 100 mg by mouth daily. Take with 50 mg metoprolol for 150 mg dose 0 ??? DULERA 100-5 mcg/actuation HFA Aerosol Inhaler inhale 2 puffs by mouth prn 0 ??? albuteroL 90 mcg/actuation HFA Aerosol Inhaler Inhale 2 puffs into the lungs every 4 hours as needed for Wheezing. Use with spacer 1 each 11 ??? Chantix Starting Month Box 0.5 mg (11)- 1 mg (42) Tablets, Dose Pack Take 1 tablet by mouth daily. ??? donepeziL (Aricept) 10 mg Tablet Take 10 mg by mouth daily. ??? triamcinolone (KENALOG) 0.1 % Cream Apply twice daily to bilateral lower legs, times two weeks then off two week, repeat as needed. (Patient not taking: No sig reported) 30 g 0 ??? nicotine (NICODERM CQ) 21 mg/24 hr Patch 24 hr Change 1 patch on the skin daily. (Patient not taking: No sig reported) 28 patch 0 ??? acetaminophen (Tylenol) 325 mg Tablet Take 650 mg every 4 hours by oral route as needed. ??? SPIRIVA RESPIMAT 2.5 mcg/actuation Mist Take 1 puff by mouth as needed. ??? PROAIR HFA 90 mcg/actuation HFA Aerosol Inhaler Inhale 2 puffs into the lungs every 6 hours as needed. ??? multivitamin (THERAGRAN) tablet Take 1 tablet by mouth daily. PHYSICAL EXAM: Last value Range last 24 hrs Temperature Temp: 36.8 ??C (98.2 ??F) Temp: [36.8 ??C (98.2 ??F)] Heart Rate Heart Rate: 93 Heart Rate: [86-93] Blood Pressure BP: (!) 118/102 BP: (118-155)/(62-102) Respiratory Rate Resp: 20 Resp: [17-20] SpO2 SpO2: 93 % SpO2: [93 %-97 %] No intake/output data recorded. Gen: Alert & oriented x3, NAD, appears chronically ill HEENT: EOMI, dry lips and mouth CV: Distant, regular, no appreciable M/G/R Pulm: coarse breath sounds with scattered rhonchi and end expiratory wheezing at b/l bases Abd: Non-distended, normal active bowel sounds, soft, NT, ND, no masses, no guarding Ext: See images below Neuro: Grossly intact, moving all four extremities. Skin: Malodorous right foot wound, see images below Lymph: no cervical/supraclavicular/axillary lympha LABS: No results for input(s): WBC, HGB, HCT, PLATELET in the last 168 hours. Recent Labs 11/18/21 1725 NA 136 K 4.2 CL 96* CO2 32* BUN 13 CREATININE 0.93 Recent Labs 11/18/21 1725 CALCIUM 9.0 No results for input(s): PT, PTT, FIBRINOGEN, DDIMER in the last 168 hours. Invalid input(s): THROMBIN TIME No results for input(s): INR in the last 168 hours. No results for input(s): AST, ALT, ALKPHOS, BILITOT, BILIDIR in the last 168 hours. No results for input(s): CK, TROPONINT in the last 168 hours. No results for input(s): LDH, URICACID in the last 168 hours. No results for input(s): TSH in the last 7068 hours. No results for input(s): HA1C in the last 7068 hours. Lab Results Component Value Date CHLPL 175 12/28/2018 HDL 52 12/28/2018 CHOLHDL 3.1 11/08/2010 TRIG 125 12/28/2018 LDLCHOL 98 12/28/2018 Imaging/Diagnostics: XR Foot Min 3 views Right (Generic) Result Date: 11/18/2021 EXAMINATION: XR RIGHT FOOT ROUTINE CLINICAL HISTORY: cellulitis R great toe/dorsum of foot; ? osteomyelitis, soft tissue gas TECHNIQUE: 3 views the right foot COMPARISON: May 10, 2021 FINDINGS: See impression. Interval resection of the neck and head of the fourth metatarsal. Healed deformity at the neck of the fifth metatarsal. Interval development of soft tissue air in the proximal great toe concerning for infection with a gas producing organism. No osseous destructive changes seen. Thank you for letting us participate in the care of this patient. If you are a health care provider and have any questions regarding this report, please contact the number below. For patients who have questions please contactthe health intensive care medicine specialist that requested your imaging first. Electronically signed by: Kushal Pascual MD, [facility] ([phone]), at 11/18/2021 1:16 PM ASSESSMENT and PLAN: Soledad Ramos is a 66 y.o. male with hx of EtOH abuse with alcoholic neuropathy and chronic b/l foot wounds(previous osteomyelitis), prior left 4th-5th amputations, COPD on 2 L O2 at home, opioid use disorder on methadone and mild cognitive impairment presenting for admission from the [facility] (transferred from [facility] ED) at the request of the orthopedic surgery service for necrotizing soft tissue infection of the right foot/great toe. Orthopedic surgery to take patient to OR tonight for debridement, rest of plan per below: #necrotizing soft tissue infection - CT right LE consistent with necrotizing soft tissue infection - Ortho consulted; OR within next 6 hours; wound care per their recs - per guidelines patient should be on carbapenam or pip-tazo, clindamycin and vancomycin; vancomycinand clindamycin started at [facility]. Will start piperacillin tazobactam now. - NPO - PT/OT #opioid use disorder #EtOH abuse #peripheral neuropathy #post-op pain control - call patient's clinic([facility]) in AM to confirm 90 mg dose of methadone daily - IV hydromorphone 0.5 mg 1x prior to OR, then SC every 4 hours PRN post-operatively - acetaminophen 650 mg every 6 hours prn - nerve block per anesthesia/OR plan - home gabapentin 600 mg TID - monitor for signs of EtOH withdrawal, no prior history of withdrawal per patient and #COPD on 2L NC at baseline #tobacco use- current 1 pack per day smoker - nicotine patch 21 mg daily - duonebs every 6 hours while awak - PRN albuterol - NC O2 titrate to 90% SpO2 #HTN - hold home lisinopril tonight - reduce home metop 150 mg daily to metop tartrate 25 mg every 6 hours - hold home furosemide as patient NPO #home medications - continue home pantoprazole 40 mg BID - continue home buspirone 30 mg BID - continue nightly mirtazapine 30 mg #Housekeeping: - DVT PPx: enoxaparin - GI PPx: not indicated, continue home pantoprazole - Tobacco: if smoker advised to quit and provided with smoking cessation education and medications per patient preference - Diet:NPO - Level of care: wards - Vitals:every 4 hours - Code Satus: Full Code IPI Certification I certify that I am a [facility] credentialed attending provider with admitting privileges and that the patient meets or has met medical necessity to require an inpatient IPI level of care meeting a minimum of two midnights or is on the [facility] inpatient only procedure list (status C) due to: acute necrotizing soft tissue infection of the right great toe/2nd toe requiring (multiple) debridements and IV antibiotics, acute on chronic osteomyelitis, cellulitis RLE Valentina Montoya MD [facility] Medicine Pager [phone] Alis Dowling MD - 11/18/2021 5:39 PM EDT INTERVAL ORTHOPAEDIC HISTORY AND PHYSICAL The patient's history and physical exam have been reviewed and completed. There has been no intervalchange from that of the pre-operative history and physical exam done within the last 30 days. EXAM: Cardiac: Regular rate, rhythm, no m/r/g Lungs: Clear to ascultation bilaterally Plan for OR for amputation right great toe with vac placement. Alis Dowling MD Orthopaedic Surgery documented in this encounter Procedure Notes Khadijah Rabago RN - 11/27/2021 4:03 PM EDTAssociated Order(s): PLACE PICC LINE: CONTACT VASCULAR ACCESS PICC/Midline Insertion Procedure Note Indications: Anti-infective This insertion was not to replace a malfunctioning catheter. This insertion was not due to a suspected line-associated infection. Location of Procedure: X-Ray Room 11 Risks and Benefits: The risks and benefits of this procedure were reviewed and informed consent was obtained obtained. Time Out: Prior to the start of the procedure, the patient's identity, intended procedure, site/side, correct patient positioning and presence of the site rashid was confirmed as applicable. The medical history and chart were reviewed to rule out potential contraindications to the planned procedure. Hand Hygiene: The burlap bag sewer did perform hand hygiene prior to line insertion. Catheter type: PICC Lot number: [id number] Procedure Technique: Skin was prepped with chlorhexidine. Skin preparation agent was completely dry at the time of first skin puncture. The following barrier precaution methods were used:large sterile drape, maske/eye shield, large sterile gown, sterile gloves and cap. 3 ml of 1% Lidocaine was used for skin wheal. Ultrasound was used for guidance. Radiographic contrast agent was not injected for vein identification. Procedure Details: Order received for catheter placement. A 4 Fr. single lumen Bard Power catheter was placed into the right basilic vein over a 0.018 inch guidewire using modified seldinger technique and fluoroscopy. Arm circumference was 32 cm at 2 cm above the insertion site. Final catheter length (with trimming): 40 cm Internal: 40 cm External: 0 cm Tip in SVC per Joo The line was not placed over a guidewire. Post Procedure: Diagnosis: S/P Right great toe amputation Blood return noted on aspiration of line after placement confirmed. 5 mls of normal saline infused free flowing to gravity via PICC after insertion. Sterile dressing applied: CHG Impregnated Tegaderm. Findings: The patient did tolerate the procedure well. No Complications. Procedure Comments: KHADIJAH RABAGO RN 11/27/2021 documented in this encounter Nursing Notes Mila Amador RN - 11/18/2021 9:31 PM EDT Esmark tourniquet time: 8 minutes RIGHT lower leg Applied @20:47 Released @20:55 documented in this encounter ED Notes Cristian Salazar NRP - 11/18/2021 6:16 PM EDT Patient off to CT Scan Lorrie Lundberg MD - 11/18/2021 5:16 PM EDT Images from the original note were not included. ED Resident Note HPI: Soledad Ramos is a 66 y.o. male who presents to the Emergency Department history is pertinent for opioid disorder, COPD (on 2 L of oxygen chronically) history of osteomyelitis of the right foot is also status post excision of the left toes from a 2017 seems like ulcer, presenting with rapidly evolving infection of the right distal extremity that initially started on his toe woke up and was mid ankleto midshaft of his sims. Patient states that this is occurred previously of the left toe. Patient denies any fevers or chills denies any pain to his leg denies any antecedent trauma. Denies any recent travel denies any recent IV drug use. Patient has no history of diabetes Pt was seen under the supervision of an attending physician. Review of Systems Constitutional: Negative for chills, fatigue and fever. Respiratory: Negative for shortness of breath. Cardiovascular: Negative for chest pain. Gastrointestinal: Negative for constipation, diarrhea, nausea and vomiting. Genitourinary: Negative for dysuria, hematuria and urgency. Musculoskeletal: Negative for myalgias. Skin: Negative for rash. Neurological: Negative for dizziness and headaches. Pertinent positives and negatives are included in the HPI, otherwise at least ten systems were reviewed and negative. Past Medical and Surgical Histories, Social History, Medications, Allergies were reviewed in the chart. Vitals: ED Triage Vitals [11/18/21 1701] BP: 147/62 Heart Rate: 86 Resp: 18 Temp: n/a Temp src: n/a SpO2: 95 % O2 Device: NC O2 Flow Rate (L/min): 2 L/min Physical Exam Vitals and nursing note reviewed. Constitutional: General: He is not in acute distress. Appearance: Normal appearance. He is obese. He is ill-appearing. HENT: Head: Normocephalic and atraumatic. Nose: Nose normal. Mouth/Throat: Mouth: Mucous membranes are moist. Eyes: General: Right eye: No discharge. Left eye: No discharge. Extraocular Movements: Extraocular movements intact. Conjunctiva/sclera: Conjunctivae normal. Cardiovascular: Rate and Rhythm: Normal rate and regular rhythm. Pulses: Normal pulses. Heart sounds: Normal heart sounds. Pulmonary: Effort: Pulmonary effort is normal. No respiratory distress. Breath sounds: Wheezing present. No rales. Chest: Chest wall: No tenderness. Abdominal: General: Abdomen is flat. Palpations: Abdomen is soft. Musculoskeletal: General: Normal range of motion. Cervical back: Normal range of motion and neck supple. Skin: General: Skin is warm. Capillary Refill: Capillary refill takes less than 2 seconds. Coloration: Skin is not jaundiced or pale. Neurological: General: No focal deficit present. Mental Status: He is alert and oriented to person, place, and time. Mental status is at baseline. Psychiatric: Mood and Affect: Mood normal. Behavior: Behavior normal. Thought Content: Thought content normal. Judgment: Judgment normal. Media Information Document Information Photographic Image: Photographs - Images 11/18/2021 17:24 Attached To: Hospital Encounter on 11/18/21 Source Information Alis Dowling MD [facility] Ed Results for orders placed or performed during the hospital encounter of 11/18/21 CT Lower Extremity w Contrast Right (Exam End: 11/18/2021 6:31 PM) Impression 1. Necrotizing soft tissue infection involving the first digit and first second web interspace. 2. Ulcer plantar to the first MTP joint with adjacent 1.1 cm abscess. 3. Some fluid around the first MTP joint and tracking within the tendon sheath of the flexor hallucis longus concerning for septic joint and septic tenosynovitis. Findings were discussed with Anatoliy Oliva M.D., by Mario Camp at approximately 2030 hrs. Preliminary report signed by: Mario Camp at 11/18/2021 9:26 PM Last 3 wbc, hgb, hct plt No results for input(s): WBC, HGB, HCT, PLATELET in the last 7068 hours. Last 3 Lytes Recent Labs 11/18/21 1725 NA 136 K 4.2 CL 96* CO2 32* BUN 13 CREATININE 0.93 GLUCOSE 113 Last 3 VBGs No results for input(s): PHVEN, VSW8SWM, PO2VEN, CUA8OKF, LACTATEVEN, BEVEN, HGBVEN, G4PTQCN, COHBVEN, METHBVEN, NAWBVEN, KWBVEN, ICAWBVEN, CLWBVEN, GLUCWBVEN in the last 7068 hours. Last Urine Micro No results for input(s): RBCU, WBCUA, BACTERIAUA, SQUAMEPIUA, HYALCAST in the last 72 hours. Last CRP, SED RATE Recent Labs 11/18/21 [address]6* CT Lower Extremity w Contrast Right Preliminary Result 1. Necrotizing soft tissue infection involving the first digit and first second web interspace. 2. Ulcer plantar to the first MTP joint with adjacent 1.1 cm abscess. 3. Some fluid around the first MTP joint and tracking within the tendon sheath of the flexor hallucis longus concerning for septic joint and septic tenosynovitis. Findings were discussed with Anatoliy Oliva M.D., by Mario Camp at approximately 2030 hrs. Preliminary report signed by: Mario Camp at 11/18/2021 9:26 PM ED Course as of 11/19/21 015 Standard Nov 18, 2021 1740 Ortho Consult: Plan for C, 1847 CRP, acute inflammation(!) CRP 265.6 1847 Basic Metabolic Panel (non-fasting)(!) 1900 Call to , plan to admit Procedures Assessment and Plan: 66 y.o. male with necrotic right toe with ascending cellulitis. LRINEC score is 6 concern for possible necrotizing fasciitis however CT was done which demonstrated NSTI over the toe and he was taken with orthopedic surgery for the OR. Antibiotics were continued while I the ED The visit findings, diagnosis, and care plan were discussed with the patient. Fidel Barr MD Resident 11/19/21152 ED ATTENDING ATTESTATION NOTE The patient was seen in conjunction with the resident physician. I have independently performed the hansen portions of the history and physical exam. I have reviewed the nursing notes, vital signs, and all diagnostic studies personally including labs, imaging studies and EKGs. I have discussed the details of the case with the resident and agree with the assessment and plan as described in the resident note unless noted otherwise. Brief Summary: Rapidly progressive soft tissue infection as above, concerning for necrotizing infection. Received antibiotics prior to arrival. Hemodynamically stable.. Taken to the operating room withorthopedics. Evaluated by the Ortho team including orthopedic attending. Final Assessment: As above Lorrie Lundberg MD 11/19/21 1813 Laly Polanco RN - 11/18/2021 3:41 PM EDT Transfer nursing report from [facility] Zbigniew RN:coming with R foot infection, weeping edema both legs, foul smelling drainage from R great toe and second toe. Pt. Has hx chronic hep C, COPD, + smoker, chronic smoker cough, methadone user, and long hx neuropathy. Also pt. Has been forgetful and is being worked up for dementia. Pt. Has exp wheezes and congestin, has a 20g IV. 1 L NS given, 1400 Vancomycin 1 gm IV, !530 Clindamycin 600mg IV. WBC 22.3 and CRP 17.8. documented in this encounter Miscellaneous Notes Care Management Discharge - Tequila Sanchez RN - 11/29/2021 5:01 PM EDT CARE MANAGEMENT FINAL DISCHARGE NOTE Chart reviewed, care reviewed with primary team and at interdisciplinary rounds. Patient is medically ready for discharge to Home. Needs for Transition of Care: Plan for discharge is: Home w/ Services Outpatient Agency/Support Group Needs: Homecare agency Outpatient IV Medications - IV Access: PICC OPAT Orders: OPAT Orders Location: Home, Referred to [facility] Coordination, Referred to Home Health Agency Home Health Services: Registered Nurse, Physical Therapy, Occupational Therapy, Wound care Agency Referrals & Follow-up Care: Contact information for follow-up [address] [place] [address] [facility] [place] and [address] [address] [facility] [address] [facility] [id number] Transportation: family or friend will provide *Spouse Wheelchair van/Ambulance? No Functional status prior to admission: Assistive Equipment Home Environment: Others in the home: spouse. Current Living Arrangements: home/apartment/condo. Accessibility Concerns:Split level 2 into the home and 8 steps. Current Functional Ability: Assistive Equipment, Assistive Person DME used at home: cane - straight, wheelchair - manual, other (see comments), walker - standard (knee scooter) DME Needed at Discharge: Ambulatory Support Needs: Walker - Front Wheeled Provider: [facility] Delivery: In Process Patient is insured through: Primary Insurance: MEDICARE Payor: MEDICARE / Plan: MEDICARE PART A & B / Product Type: *No Product type* / Secondary Insurance: AARP SUPPLEMENT Prescription Coverage: Yes This plan was formulated with input from patient, Spouse and team. All are in agreement with plan. I have verbally reviewed Medicare Discharge Rights with patient. Patient verbalizes understanding ofright to appeal this discharge if feeling not medically ready. Offered a copy of this letter. Tequila Sanchez RN, BSN Grade Foreman - Medicine Office of Care Management Office: Pager: [phone] Consult Note - Reji Monte MD - 11/29/2021 2:22 PM EDT BIT Evaluation Referral source: Nursing referral Reason for referral: Alcohol Use Disorder Opioid Use Disorder. Medication-Assisted Treatment Plan Was patient offered MOUD: No. Reason MOUD not offered?: On MAT prior to admission. Methadone Relevant history: Mr. 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 Remotehistory of illicit opioid use on long-term outpatient Methadone maintenance, and remote history of heavy alcohol use. Pt with minimal sx withdrawal today after increase of methadone to 45mg. Discussed increased risk ofrelapse in context of recent surgery, acute pain and he is aware and would like to discuss with his methadone clinic provider returning to his prior dose of 160?mg before his taper to 90 mg in order to address expected increase in cravings. Also discussed that he may have to return to daily dosing fora period at [facility] while titrating the dose. Pt cleared per PT/OT for dc home per my conversation with NIEVES Padilla. Pt also has been accepted at infusion suite in [facility] for outpt IV ABx infusion. I also performed cognitive exam and pt was oriented to place, situation, time and able to perform basic attentional/memory tasks fluidly without mistakes. Also denies. SI/HI/AVH. Assessment: Mr. Ramos is a 66-year-old man??admitted from OSH with necrotizing soft tissue infection of the right foot/great toe now s/p right great toe amputation. Remote history of illicit opioid use on long-term outpatient Methadone maintenance, and remote history of heavy alcohol use. Currently with acute stress with missing his family and mild/moderate opioid withdrawal (restlessness, irritability, chills, diarrhea) and craving since prn dilaudid was discontinued, team is working on restarting outpatientMethadone, no acute safety concerns. Motivated to remain abstinent from illicit opioids with the ongoing clinical support of Methadone assisted therapy at [facility] in [place]. Pt likely will discharge today and continue titrating methadone through this clinic. Team has spokenwith [facility] provider who indicated likely plan for retitration 10mg/day with daily EKG. QTc (bazette)today 494, but likely overcorrection given continued tachycardia (90). Alternative formulas include f rederica (462), (framingham) 455 which may be more accurate in this case. I did not formally assess capacity but given pt cleared from PT/OT and is now connected with infusion suite for IV ABx, risks are mitigated and it does not appear dc will be AMA. If risk of dc changes significantly it may be appropriate to formally assess capacity. Psychiatry could be consulted for a second opinion after primary team assessment if they remain uncertain. Interventions delivered: Consulted with care team Mindfulness Based Stress Reduction Motivational interviewing Pharmacologic treatment Plan: 1. Patient plans to remain abstinent from illicit opioids with the ongoing clinical support of Methadone assisted therapy at [facility] in [place]. 2. Last dose letter/documentation to [facility] including time of discharge and the time and amount (45mg) of last total daily dose of methadone to ensure that outpatient pharmacotherapy can be resumed without interruption. 3. Pt is at increased risk of relapse in this context (albeit long hx lucille sobriety) and may benefit from temporary increase in methadone dose from previous 90mg dose. Plan for now is titration 10mg/day per [facility] provider, monitoring QTc. - If pt remains tachycardic (ie >60bpm) bazette QTc correction may overestimate risk of TdP and likely risk of harm to patient if he relapses is much greater than low/theoretical risk of TdP. [address] [place] [address] Time spent with the patient (min):15 minutes Time spent on case coordination (min): 30 minutes Consult Note - Reji Monte MD - 11/28/2021 12:20 PM EDT Brief BIT note: Met w pt re: methaodne. Pt experiencing subjective and objective sx of withdrawal (piloerection, anxiety, reslessness). Noted QTc 496 from yesterday, but recalculated myron 455. Given r/b would recincreasing methadone dose to 45mg total daily, including 30mg now. Plan Stop Methadone 15mg BID and give additional 30mg, now for total 45mg today. Methadone 45mg QD starting tmrw Defer to [facility] for further titration recs when they are available (likely tmrw). Reji Monte MD 12:23 PM 11/28/2021 Plan of Care - Bridgette Cho RN - 11/27/2021 10:25 PM EDT OUTCOME EVALUATION NOTE: OUTCOME SUMMARY: Pt A&Ox3. Pt disoriented to place. VSS on RA. Pt endorses 7/10 pain in R abdomen into chest. PRNFlexeril given (see MAR). Scheduled Methadone given. Dressing on R foot is C/D/I. Non-wt bearing status on RLE maintained. Telemetry maintained. Report given to RN on at [id number]. Assessment as filed. Safety maintained. Will continue to monitor. PLAN MOVING FORWARD: IV abx Wound care Telemetry Pain management VS q4h INDIVIDUALIZED FALL PREVENTION INTERVENTIONS: Bed alarm set, wheels locked and bed in lowest position, side rails up x3, call romero/personal items within reach, non-skid socks when OOB, purposeful hourly rounding, room near nurse's station Patient-specific fall risk factors per assessment: [current deficits]: PICC, generalized weakness, non-wt bearing on RLE Assistance [level of assistance required for transfers and ambulation]: 1 Assist w/ walker Supervision [direct monitoring required during toileting and ADLs]: Hands on Surveillance [continuous indirect monitoring]: Masimo on, tele on Patient-specific fall prevention interventions for sensory deficits provided, if applicable: [X] Yes CPG GOAL OUTCOME EVALUATION: Plan of Care - Khadijah Rabago RN - 11/27/2021 4:03 PM EDT Peripherally Inserted Central Catheter (PICC) Teaching Sheet Peripherally inserted central catheters ([id number]) (PICC) are used when you need IV (intravenous) medicines and fluids. A catheter is a small flexible plastic tube. The catheter is put in through avein under your skin. A vein is a tube inside your body that carries blood from the body to the heart. The catheter is usually put into a vein on the inside of your upper arm. Then it is threaded up this vein and ends in the blood vessel near your heart. The PICC catheter may be used for taking blood for laboratory tests. You may also get IV fluids and medicines quickly and easily. Having the catheter may keep your arm from being stuck many times with a needle. The catheter will have 1-3 small tails (tubes) coming from your arm where the catheter was put in. Why do I need a PICC line or midline catheter? PICC lines are used for vermin exterminator treatments. PICC lines may be used for up to a year. They are often put in to give you IV medicines at home. You may need a PICC catheter because caregivers cannot use smaller veins in your body. Smaller veins may be damaged, or they may have poor blood flow. Catheters are also used in case of emergency when you would need medicines or fluids very quickly. The following are medicines and treatments you may get when you have a PICC line. ?? Antibiotics. These are medicines to prevent infection. ?? Frequent blood sample collection. ?? IV medicines that would make your smaller veins sore or damaged. ?? Receiving IV fluids for a long period of time. ?? Pain medicine. ?? Total Parenteral Nutrition: This is also called TPN. TPN is a special liquid food that goes directly into your veins. ?? Blood ?? Chemotherapy (Medicine for cancer) What are the benefits of having a PICC line put in? Having a PICC line may keep your arm from being stuck many times with a needle to draw blood or start an IV (intravenous catheter) . Through a PICC catheter, you may have blood taken for tests. You may also get IV fluids and medicines quickly and easily. Small veins can be damaged or irritated by certain drugs or nutritional solutions. A PICC line helps to decrease vein irritation from antibiotics, IV pain drugs, or IV cancer drugs. A PICC line can be left in place when you go home. If you go home with a PICC line in place, home care can be set up via the nurse Grade Foreman to help you. What are possible complications of having a PICC line put in? Some possible complications are: bruising, swelling, or infection in the arm with the PICC line mal-positioned catheter (catheter tip in wrong place) occlusion (blocked catheter) mechanical phlebitis (vein irritation) and thrombosis (clot) Your doctor is the person you should talk to if you have questions about what would happen if you donot choose to have a PICC line put in. Your doctor can talk to you about other choices you may have. What should I expect when it is put in? A written consent that gives your ok to have it put in needs to be signed after you understand that you are going to have a PICC put in, and all your questions about the procedure have been answered toyour satisfaction. This is a safety feature that the hospital practices before doing procedures. An experienced nurse who has been through special training and education will be putting this catheter in. The procedure is done in a specially equipped room in Interventional Radiology on the third floor. The PICC nurse will first talk to you about any questions that you may have. The PICC nurse willexplain to you what is going to be done before starting. Once you arrive in the procedure room in Interventional Radiology, the PICC nurse will then set up for the procedure. She will unwrap the sterile kit and open the needed supplies. A gown and mask and gloves will be worn while putting it in. An ultrasound machine will be used to help guide the catheterin the right place. This machine uses a handle with sound waves to find the vein. The area on your arm where the catheter will be put in is then numbed with a medicine put under yourskin with a tiny needle. The nurse will then put in the catheter using fluoroscopy (a type of x-ray)as a guide. Once the catheter is in your vein, it will be threaded up your arm to the area before your heart. While it is being threaded, you may be asked to turn your head. When the catheter is in, the nurse will place a small dressing on the site along with a little san which will help keep the catheter in place. After the procedure is done, a radiologist (doctor in x-ray department) will look at your x-ray to make sure that the end of the catheter is in proper position to give your fluids and/or medications. What should I expect in the care of my PICC? A dressing that is specially made to prevent infections will be put on. After this, the dressing will only be changed once a week unless it needs it sooner. If you go home with the catheter in, you may take a shower as long as you keep the site dry. You lolita this by wearing a specially fitted PICC protector that will be provided to you before discharge from the hospital. The dressing at the site must be kept clean and dry. It is important that you watch for signs of infection at the site. Your healthcare provider should be notified if these occur: Redness Swelling Pus Pain at the site Other reasons to notify your healthcare provider are: Catheter becomes partially or totally removed Unable to infuse medication/fluid Unable to draw back blood from the catheter. This may be an early sign that a clot is forming on the end of the catheter. If this occurs, a medicine called Cathflo may be used to dissolve this clot. Ask the PICC nurse or your doctor, any questions you may have so you feel secure in consenting to having a PICC line. References: Vascular Access Device Selection, Insertion, and Management, [employer] 02/13. A Review of the Efficacy, Safety, Use, and Administration of Cathflo, [employer] 2005 Care Management - Elli Obrien RN - 11/27/2021 1:38 PM EDT OFFICE OF CARE MANAGEMENT PROGRESS NOTE LOS: Hospital Day 9 days Chart reviewed, care reviewed with primary team and at interdisciplinary rounds. Patient continues to meet inpatient level of care related to: Waiting for final OPAT recommended CM sent referral to [facility] , [place] and ( Lia - resumption of care ) Orders Pended . Lia will notneed a new order unless order changes. Functional status prior to admission: Assistive Equipment Home Environment: Others in the home: spouse. Current Living Arrangements: home/apartment/condo. Accessibility Concerns: Split level 2 into the home and 8 steps. Current Functional Ability: Assistive Equipment, Assistive Person DME used at home: cane - straight, wheelchair - manual, other (see comments), walker - standard (knee scooter) DME Needed at Discharge: OPAT needs / PICC line care / Patient is insured through: Primary Insurance: MEDICARE Payor: MEDICARE / Plan: MEDICARE PART A & B / Product Type: *No Product type* / Secondary Insurance: AARP SUPPLEMENT Last Physical Therapy Recommendation: home with home health, to be determined pending medical status& functional progression with walker, front wheeled Last Occupational Therapy Recommendation: home with home health, home with supervision (pending progress made while hospitalized) with walker, front wheeled, shower chair Plan for discharge is: Pending Hospital Course and PT/OT Recommendations Agency Referrals: [facility] and [address] [address] PHONE: [phone] FAX: [phone] [place], [place] or [facility] Int[facility]: tel: [phone] [place], [place] Office [place], [place] Office Transportation: family or friend will provide Barriers to discharge: Discharge planning Plan going forward: Care Management will continue to follow and assist with discharge planning and coordination of care as indicated. Anticipated Date of Discharge: 11/28/2021 Office of Care Management Surgery Team Grade Foreman [email or web address] Pager [phone] Consult Note - Brian Kaminski APRN - 11/27/2021 12:31 PM EDT BIT Evaluation Referral source: Nursing referral Reason for referral: Alcohol Use Disorder Opioid Use Disorder. Medication-Assisted Treatment Plan Was patient offered MOUD: No. Reason MOUD not offered?: On MAT prior to admission. Methadone Relevant history: Mr. 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 Remotehistory of illicit opioid use on long-term outpatient Methadone maintenance, and remote history of heavy alcohol use. Mr. Ramos is A&Ox4, pleasant, and cooperative, endorses acute stress with hospitalization and reports his mood as not good, everything is going wrong in the context of missing his family and experiencing opioid withdrawal, endorses mild/moderate opioid withdrawal (restlessness, irritability, chills, diarrhea) and craving since prn dilaudid was discontinued, team is working on restarting outpatient Methadone, denies AH/VH, denies SI/HI, denies any history of traumatic stress. Mr. Ramos reports his last use of illicit opioids was several years ago and has been engaged in outpatient Methadone assisted therapy at [facility] in [place] for several years without relapse and reports being motivated to remain abstinent from illicit opioid amer[place] with their ongoing clinical support. He reports his current Methadone dose is 90 mg daily take home medication prescription, having graduated from daily dosing years ago. He is agreeable to consultation between his primary team and [facility] on potential Methadone dose titration and transfer of care. He reports his last heavy use of alcohol was many years ago and reports only occasional use currently 1-2 beers per month and credits past engagement in outpatient counseling for this. [address] [place] [address] Mr. Ramos was open to instruction in 4-7-8 Breathing technique for stress reduction and received a printed resource for reference. Assessment: Mr. Ramos is a 66-year-old man??admitted from OS with necrotizing soft tissue infection of the right foot/great toe now s/p right great toe amputation. Remote history of illicit opioid use on long-term outpatient Methadone maintenance, and remote history of heavy alcohol use. Currently with acute stress with missing his family and mild/moderate opioid withdrawal (restlessness, irritability, chills, diarrhea) and craving since prn dilaudid was discontinued, team is working on restarting outpatientMethadone, no acute safety concerns. Motivated to remain abstinent from illicit opioids with the ongoing clinical support of Methadone assisted therapy at [facility]. He endorses a remote history of heavy alcohol use and reports 1-2 beers per month currently. He plans to practice 4-7-8 Breathing technique for stress reduction. Interventions delivered: Consulted with care team Mindfulness Based Stress Reduction Motivational interviewing Pharmacologic treatment Recommend: -Primary team consultation with [facility] for potential Methadone dose titration and transfer of care. Plan: 1. Patient plans to remain abstinent from illicit opioids with the ongoing clinical support of Methadone assisted therapy at [facility]. 2. Patient plans to practice 4-7-8 Breathing technique for stress reduction. Outstanding Discharge Needs: Primary team should notify the outpatient methadone treatment program of the time of discharge and the time and amount of last dose of methadone to ensure that outpatient pharmacotherapy can be resumedwithout interruption. Time spent with the patient (min):30 minutes Time spent on case coordination (min): 15 minutes Consult Note - Terrance Peres, [facility] - 11/27/2021 10:54 AM EDT Clinical Pharmacist Note - Faheem Soledad Ramos [id number] Soledad Ramos is a 66 y.o. male who is starting antibiotic therapy which includes intravenous vancomycin. Based on a review of the patient???s chart and/or conversation with the patient???s providers vancomycin is being used for treatment of CoNS bone infection with a targeted goal of 10 - 15 mcg/mL. The following Pharmacokinetic data has been evaluated: Wt Readings from Last 1 Encounters: 11/26/21 91.9 kg (202 lb 11.2 oz) Ht Readings from Last 1 Encounters: 11/20/21 175.3 cm (5' 9) Labs: Creatinine clearance: Creatinine (mg/dL) Date Value 11/26/2021 1.20 Dosing recommendations: ??? Based on this information, vancomycin therapy will be initiated with a one- time dose of 2000 mg to be given now, followed by a maintenance dose of 1500 mg IV every 18 hours to achieve a goal of 10-15 for CoNS. ??? Trough levels to be scheduled upon daily review. We will continue to monitor the patient as long as he remains on vancomycin therapy. Thank you for this consult and please page the care area pharmacist with any questions you may have. Alternately, during off-hours (9p-7a) you may call [phone] to contact a pharmacist. TERRANCE PERES RPH Plan of Care - Bridgette Cho RN - 11/26/2021 9:51 PM EDT OUTCOME EVALUATION NOTE: OUTCOME SUMMARY: Pt A&Ox3. Pt disoriented to place. VSS on RA, except hypertensive up to 170s/100s and tachycardic in the low 100s. MD notified and IV Hydralazine given x1. Pt endorses up to 7/10 pain in R foot andlower back. PRN SQ Dilaudid given x2 and PRN Tylenol given x1 (see MAR). Dressing over R foot is C/D/I. Pt able to maintain non-wt bearing status w/ walker. Soap and water precautions maintained for C.Diff rule out. Assessment as filed. Safety maintained. Will continue to monitor. PLAN MOVING FORWARD: Abx Pain management Wound care PT/OT VS q4h INDIVIDUALIZED FALL PREVENTION INTERVENTIONS: Bed alarm set, wheels locked and bed in lowest position, side rails up x3, call romero/personal items within reach, non-skid socks when OOB, purposeful hourly rounding, room near nurse's station Patient-specific fall risk factors per assessment: [current deficits]: IV sites, toe amp, generalized weakness Assistance [level of assistance required for transfers and ambulation]: 1 Assist w/ walker Supervision [direct monitoring required during toileting and ADLs]: Hands on Surveillance [continuous indirect monitoring]: Masimo on Patient-specific fall prevention interventions for sensory deficits provided, if applicable: [X] Yes CPG GOAL OUTCOME EVALUATION: Plan of Care - Bridgette Cho RN - 11/25/2021 11:34 PM EDT OUTCOME EVALUATION NOTE: OUTCOME SUMMARY: Pt alert but disoriented to place and time. Pt endorsed up to 9/10 pain in R foot. PRN SQ Dilaudid given x3 (see MAR). Pt intrmittently tachycardic in low 100s and hypertensive up to 180s/90s. MD notified. 5 mg IV Hydralazine given x2 (see MAR). Pt on 2 L NC while sleeping. Dressing over R foot is C/D/I. Chauhan maintained. Assessment as filed. Safety maintained. Will continue to monitor. PLAN MOVING FORWARD: Pain management Abx Wound care VS q4h INDIVIDUALIZED FALL PREVENTION INTERVENTIONS: Bed alarm set, wheels locked and bed in lowest position, side rails up x3, call romero/personal items within reach, non-skid socks when OOB, purposeful hourly rounding, room near nurse's station Patient-specific fall risk factors per assessment: [current deficits]: IV sites, chauhan, oxygen tubing, generalized weakness, non-wt bearing to RLE Assistance [level of assistance required for transfers and ambulation]: 2 Assist w/ walker Supervision [direct monitoring required during toileting and ADLs]: Hands on Surveillance [continuous indirect monitoring]: Masimo on Patient-specific fall prevention interventions for sensory deficits provided, if applicable: [X] N/A CPG GOAL OUTCOME EVALUATION: Op Note - Jarad Flores MD - 11/25/2021 8:54 AM EDT [facility] Operative Note Patient Name: Soledad Ramos : [id number] MR#: [id number] Case Date: 11/25/2021 Surgeon: Surgeon(s) and Role: * Jarad Flores MD - Primary * Edi Childress MD - Resident Preoperative diagnosis: Osteomyelitis of right great toe s/p first metatarsal transmetatarsal amputation and wound vac Postoperative diagnosis: Same Procedure(s) (LRB): DEBRIDEMENT SKIN, SUBCU, MUSCLE, RIGHT FOOT AND REAMPUTATION THROUGH FIRST METATARSAL (TRANSMETATARSAL), CLOSURE Anesthesia: General Estimated Blood Loss: 10 mL Specimens removed during surgery: None Drains: * No LDAs found * Surgical Closure: Primary Closure - skin incision is completely closed without any wires, korey, drains or other devices Disposition: awakened from anesthesia, extubated and taken to the recovery room in a stable condition, having suffered no apparent untoward event. Condition: doing well without problems (Please see the Surgical Encounter Summary for any Implant and Specimen details pertinent to this patient.) HPI/Surgical Indications: The patient is a 66-year-old gentleman with osteomyelitis of his right first ray with undergone right first transmetatarsal amputation x2 with the wound left open and a wound VAC placed. After thorough discussion of the risks and benefits, he elected to proceed to the OR for i rrigation, debridement, and reamputation with closure as able. Previous proximal resection site cultures from the metatarsal had grown bacteria. Procedure Description: After being identified, marked, and having preoperative consent confirmed in the preoperative holding area, the patient proceeded to the operative theater. A preoperative timeoutwas held and the patient received his scheduled preoperative antibiotics. General anesthesia was induced. His right leg was prepped and draped in a sterile fashion after removing his wound VAC. 2 blacksponges and 1 white sponge were removed from the wound. We examined the wound. There is no gross purulence. Given his previous positive culture at the proximal resection site, we used a oscillating saw to resect an additional 1 cm of bone from his metatarsal. We then cut his FHL tendon high in the wound. We used a rongeur and a curette to perform excisional debridement of the remainder of the wound bed down to healthy bleeding tissue. We copiously irrigated with 3 L of normal saline. We took a proximal resection site culture. We then were able to close the stellate wound, starting with deep Vicryl's and ending with nylons for the skin. We took care to close down the space. A dry sterile dressing was placed. The patient's anesthesia was reversed and he was discharged the PACU in stable condition. Surgical Infection Prevention Bundle Used? N/A Attestation: Case Date: 11/25/2021 I was present and I participated during the entire procedure (does not need to include opening and closing). JARAD FLORES MD 11/25/2021 Op Note - Jarad Flores MD - 11/25/2021 8:[address] Flores's op note of same date Plan of Care - Anusha Matias RN - 11/25/2021 4:17 AM EDT OUTCOME EVALUATION NOTE: OUTCOME SUMMARY: Pt admitted 11/18/21 with R great toe infection requiring amputation. Pt now with wound VAC over site. A/O to self, place. Confused to date, situation. Pleasant and cooperative with care. Pt reporting pain in L foot as well as R knee. Medicated with prn SQ dilaudid with fair reported effect. Chauhan cath in place, draining adequate yellow urine. BM x 1 this shift. VSS. Will continue to monitor and will inform MD of any changes. PLAN MOVING FORWARD: Closely monitor VS, labs, assessments. Medicate as needed and as ordered. Inform MD of any changes. NPO for possible OR later today. INDIVIDUALIZED FALL PREVENTION INTERVENTIONS: Patient-specific fall risk factors per assessment: [current deficits]: weakness, deconditioning, pain, VAC Assistance [level of assistance required for transfers and ambulation]: 2 assist for transfers, 2 assist and FWW for ambulation Supervision [direct monitoring required during toileting and ADLs]: hands on if OOB for toileting, 1assist for ADLs Surveillance [continuous indirect monitoring]: hourly rounding, bed alarm Patient-specific fall prevention interventions for sensory deficits provided, if applicable: [X] Yes, call romero within easy reach, side rails up x 3, nonslip socks on if OOB, PT consult CPG GOAL OUTCOME EVALUATION: Plan of Care - Anusha Matias RN - 11/24/2021 5:01 AM EDT OUTCOME EVALUATION NOTE: OUTCOME SUMMARY: Pt admitted 11/18/21 with R toe infection, now s/p amputation and now with wound VACin place. Pt stable overnight, A/O x 3, cooperative and calm. Restraints removed at 2200. Pt reporting severe low back pain and also R foot pain. Medicated with prn SQ dilaudid prn with fair reported effect. Pt also reporting discomfort at chauhan insertion site, MD notified and order for 1x lidocaine jelly to site, which was given with good effect. BP elevated at start of shift, IV lopressor 5 mg given, poor effect. MD notified and order for IV hydralazine 5mg was obtained and given x 2 with good effect, see doc flowsheets. Will continue to monitor and will inform MD of any changes. PLAN MOVING FORWARD: Closely monitor VS, labs, assessments. Medicate as needed and as ordered. Reorient as needed. Pain meds as needed. Inform MD of any changes. INDIVIDUALIZED FALL PREVENTION INTERVENTIONS: Patient-specific fall risk factors per assessment: [current deficits]: weakness, deconditioning, pain, VAC Assistance [level of assistance required for transfers and ambulation]: 1-2 assist for transfers, NWB to RLE - s/p amp on 11/23/21, has not been OOB post op Supervision [direct monitoring required during toileting and ADLs]: chauhan cath in place, bedpan otherwise, 1 assist for ADLs Surveillance [continuous indirect monitoring]: hourly rounding, bed alarm Patient-specific fall prevention interventions for sensory deficits provided, if applicable: [X] Yes, call romero within easy reach, side rails up x3, nonslip socks on if OOB, PT consult CPG GOAL OUTCOME EVALUATION: Brief Op Note - Jarad Flores MD - 11/23/2021 1:24 PM EDT See full op note Op Note - Jarad Flores MD - 11/23/2021 1:01 PM EDT [facility] Operative Note Patient Name: Soledad Ramos : [id number] MR#: [id number] Case Date: 11/23/2021 Surgeon: Surgeon(s) and Role: * Jarad Flores MD - Primary * Antoni Hurt MD - Resident * Harley Raymond MD - Resident Preoperative diagnosis: S/p right great toe amputation for infection, left open with wound vac Postoperative diagnosis: Same Procedure(s) (LRB): RIGHT GREAT TOE TRANSMETATARSAL AMPUTATION, WOUND VAC PLACEMENT Anesthesia: General Estimated Blood Loss: * No values recorded between 11/23/2021 1:01 PM and 11/23/2021 1:26 PM * Specimens removed during surgery: None Drains: * No LDAs found * Surgical Closure: Primary Closure - skin incision is completely closed without any wires, korey, drains or other devices Disposition: awakened from anesthesia, extubated and taken to the recovery room in a stable condition, having suffered no apparent untoward event. Condition: doing well without problems (Please see the Surgical Encounter Summary for any Implant and Specimen details pertinent to this patient.) HPI/Surgical Indications: The patient is a 66-year-old gentleman with a necrotizing infection of hisright great toe treated with a guillotine amputation through a portion of his metatarsal head. He was placed in a wound VAC. Plans were made for return to the OR for irrigation, debridement, and higherlevel resection of the metatarsal as needed in order to gain a soft tissue coverage. Procedure Description: After being identified, marked, and having preoperative consent confirmed in the preoperative holding area, patient proceeded to the operative theater. A preoperative timeout washeld and the patient received preoperative antibiotics. General anesthesia was induced. He was placed supine on the operating room table. A high right thigh tourniquet was placed. His wound vacuum was removed, with removal of 1 black sponge. His right leg was prepped and draped in a sterile fashion. His leg remained elevated and the tourniquet was inflated to 250 mmHg where it stayed for less than half an hour. We examined the wound. There was a plantar ulcer underneath the first metatarsal head that had purulent tissue deep to it. This was resected along with a sinus tract. We dissected proximally along the metatarsal and extended the dorsal incision and then used an oscillating saw to amputate the metatarsal at the mid diaphyseal point. The distal metatarsal was removed. We removed the sesamoids. We used a rongeur and a 15 blade to perform an excisional debridement necrotic or infected surrounding tissue, taking care to preserve the medial joint capsule of the second metatarsal phalangeal joint. We thencopiously irrigated with 6 L of normal saline. We let down the tourniquet and achieved hemostasis. We took 3 cultures of the proximal first metatarsal resection site. Given the fact that there was purulence in the wound bed when we took off the wound VAC, we elected to place another wound VAC, placinga single white sponge against the metatarsal. We placed barrier over the dorsal foot, and then placed 1 black sponge within the wound, and another extending onto the dorsum of the foot to act as a bridge. We covered this with barrier dressing and attached it to suction. It held suction well. His anesthesia was reversed and he was discharged the PACU in stable condition. The plan moving forward will be for return to the OR in 2 to 3 days with hopeful closure at that time. Surgical Infection Prevention Bundle Used? N/A Attestation: Case Date: 11/23/2021 I was present and I participated during the entire procedure (does not need to include opening and closing). JARAD FLORES MD 11/23/2021 Plan of Care - Quinton Fitzgerald RN - 11/23/2021 10:46 AM EDT VAS Team consulted for PICC placement. PT was scheduled for OR at 0920. In his state this morning provider reports he is grossly agitated and confused at baseline requiring shanelle and multipoint restraints. Given his baseline state it would not be safe or plausible to place line in PICC room today. Theplan was for patient to have vascular access placed in OR today by anesthesia and then to communicate a plan with PICC team for early next week to have PICC placed with anesthesia support if still indicated at that time. Consult Note - Donal Serrano MD - 11/23/2021 10:44 AM EDT INFECTIOUS DISEASE CONSULTATION NOTE Reason for Consult: Polymicrobial necrotizing great toe soft tissue infection and tenosynovitis Current antimicrobials: Zosyn Consulting Service: Hospital medicine Consulting Attending: Afshin Rogers MD Admission Date: 11/18/2021 History of Present Illness: 66 y.o. male with a history of DMII complicated by neuropathy and bilateral diabetic foot ulcers, hepatitis C s/p Epclusa 2016 and alcohol abuse with resulting cirrhosis, history of prior osteomyelitis(01/2019 left 5th toe ray amputation, 02/2020 left 4th ray amputation), who was admitted to [facility] on 11/18 as a transfer from [facility] for necrotizing soft tissue infection of the right great toe,where he presented for rapid progression of redness and swelling of the wound overnight. At [facility], patient was stable but with WBC 23k, and was started on Clindamycin and Vancomycin before transfer to [facility]. Noted to have sinus tract on plantar surface. On arrival to [facility], Soledad was afebrile and hemodynamically stable. He was continued on vancomycin and clindamycin with addition of zosyn. Right foot plain film demonstrated soft tissue air in proximalgreat toe but no osseous changes seen. CT RLE with contrast demonstrated soft tissue gas along plantar, medial, and lateral aspects of first proximal phalanx and 1st/2nd digit web interspace. Rim enhancing collection measuring 1.1cm deep to 1st MTP joint wound on plantar surface without underlying osseous destruction. Fluid surrounding 1st MTP joint and further tracking within flexor hallicus longus sheath to the mid metatarsal. Bony infarcts within proximal tibia and distal femur. He was taken for g uillyoane partial first ray resection on 11/18 with orthopedics. Op note indicates that the tissue was necrotic and malodorous, with great toe removed, then metatarsal head removed and proximal bone culture of remaining metatarsal sent for culture along with fluid from the toe abscess. Abscess from tipof the toe showing GPC and GNR on gram stain with Proteus mirabilis (S - ceftriaxone, FQ, PCN), Strep milleri, MSSA, and Bacteroides fragilis on culture. Proximal bone with few neutrophils and no microorganisms, and culture growing rare Bacteroides species. Patient is seen in PACU after repeat OR washout today. Denies fever or chills. Confirms that progression of infection was very acute and only over a single night. Review of Systems: Pertinent positives and negatives noted in HPI. 14 point ROS otherwise negative Past Medical History: As above and per chart review. History of diabetic foot ulcers bilaterally Past Surgical History: Per chart review. No hardware. Medications: Prior to admission medications reviewed. No antibiotics or immunosuppressants. Allergies: Allergies Allergen Reactions ??? Morphine Other (See Comments) STATES THAT IT DOES NOT TAKE HIS PAIN AWAY Family History: Per chart review. No history of recurrent infection or drug allergies. Social History: Lives with his in [place], [place]. One dog. Social drinking, current smoker, previous IV drug use but none for 5 years. In methadone program. Physical Exam: Last value Range last 24 hrs Temperature Temp: 36.5 ??C (97.7 ??F) Temp: [36.4 ??C (97.6 ??F)-37.2 ??C (99 ??F)] Heart Rate Heart Rate: 89 Heart Rate: [84-93] Blood Pressure BP: (!) 158/113 BP: (139-191)/(93-132) Respiratory Rate Resp: 20 Resp: [18-20] SpO2 SpO2: 98 % SpO2: [90 %-98 %] General: groggy but responsive and pleasant EENT: EOMI, no nasal secretions, no tonsillar exudates, edentulous Cardiovascular: RRR no obvious MRG Pulmonary: Nonlabored respirations. No wheezing, rhonchi, crackles to auscultation in the anterior Abdomen: BS + ND NT no rebound tenderness no guarding Ext: no edema, right foot with wound vac and serosanguinous drainage Skin: no rashes, no splinter hemorrhages Neuro: alert and oriented to person place time and situation. No facial droop. No dysarthia Psych: normal affect Laboratory: Labs reviewed in chart and significant for: WBC 8.2, hgb 13.2, plt 285, cr 0.93, crp 265.6, Esr 104 Culture data: 11/18 toe abscess culture: GPC and GNR on gram stain; Proteus mirabilis (S - ceftriaxone, FQ, PCN), Strep milleri, MSSA, and Bacteroides fragilis 11/18 right foot second toe proximal metatarsal bone culture: few neutrophils and no microorganisms on gram stain; rare Bacteroides species on culture 11/23 right foot proximal metatarsal bone culture: No neutrophils or microorganisms on gram stain; culture pending Antimicrobials on this admission: Vancomycin 11/18-11/22 Zosyn 11/18-present Clindamycin 11/18-11/22 Radiology/Studies/Procedures: Reviewed as above. Impression: Soledad Ramos is a 66 y.o. male with a history of DMII complicated by neuropathy and bilateral diabetic foot ulcers, hepatitis C s/p Epclusa 2016 and alcohol abuse with resulting cirrhosis, history ofprior osteomyelitis (01/2019 left 5th toe ray amputation, 02/2020 left 4th ray amputation), who was admitted to [facility] on 11/18 as a transfer from [facility] for necrotizing soft tissue infection of the right great toe. CT showed extensive tissue involvement and gas in the tissue of the great toe, as well as involvement of the tendon. He underwent RIGHT great toe ray amputation on 11/23, with tissuegrowing multiple microbes, including anaerobes. Proximal bone gram stain showed no neutrophils or organisms, with culture growing rare Bacteroides. He returned to the OR today for further resection of the metatarsal with new proximal bone cultures obtained, which have no organisms on gram stain. Givenhow rapid the infection progressed in the soft tissue, it is unlikely that the bone is infected. Furt her, bone cultures from 11/18 and 11/23 both show no organisms or neutrophils, and only rare Bacteroides on the 11/18 bone culture which has now been further resected. As long as nothing further grows on the bone cultures, we recommend transitioning from Zosyn to Ceftriaxone + PO flagyl, then transitioning to Cefpodoxime + PO Flagyl on discharge to complete 14 days of treatment from today (given the purulence seen in the soft tissue) as date of source control, which will cover both the soft tissue infection and tenosynovitis. Recommendations: -discontinue Zosyn -transition to Ceftriaxone 2g q24h + Flagyl PO 500mg TID while in hospital -if he is discharged prior to completion of 14 days of treatment from today, would complete the course with Cefpodoxime PO 400mg BID + PO Flagyl 500mg TID This patient was discussed with ID attending Dr. Phan. Recommendations discussed with primary treating team. Thank you very much for this interesting consult and allowing me to participate in this patient's care. We will be following peripherally, but please give us a call if today's intraoperative cultures showgrowth. Donal Serrano MD 11/23/2021 10:44 AM Green team pager [phone] Associated attestation - Gordon Phan MD - 11/23/2021 5:53 PM EDT I have seen and examined the patient and discussed the assessment and plan with the fellow. I reviewed the fellow's note and I agree with the documented findings and recommendations. Based on the rapid onset of the foot infection, absence of evidence of osteomyelitis on CT and healthy appearing bone per the OR note, I am not convinced Mr. Ramos has residual osteomyelitis despite rare bacteroides on a proximal bone culture - which had a negative gram stain and no growth on the aerobic culture. We recommend treating for at least 2 weeks for a complicated soft tissue infection, initially with ceftriaxone and metronidazole. Gordon Phan MD ID Staff Physician Plan of Care - Sarah Gamez RN - 11/23/2021 5:08 AM EDT OUTCOME EVALUATION NOTE: OUTCOME SUMMARY: Pt AOX1, confused to situation and continuing to try to remove restraints and leave. Pt yelling and being disruptive , continually requiring reorientation however shows no evidence of learning or understanding. Medicated throughout the night with various PRN meds and no sign of relief on his part. BP elevated , PM MD's aware , restraints order reordered. From continuous effort to get out of the bed the IV began causing the pt pain , the second IV would not flush and both were removed. The two attempts were made by the vascular team to gain IV access but to no avail, IV abx have no been administered. MD aware. Pt's was contacted to try to calm the pt down, they spoke briefly. PLAN MOVING FORWARD: PT NPO except for meds given, Vascular team sent communication to the MD requesting PICC line for the pt, Possible I&D today INDIVIDUALIZED FALL PREVENTION INTERVENTIONS: Patient-specific fall risk factors per assessment: [current deficits]: Medication , confusion , medical equipment Assistance [level of assistance required for transfers and ambulation]: 2 person assist Supervision [direct monitoring required during toileting and ADLs]: Hands on Surveillance [continuous indirect monitoring]: Masimo, four rails up , soft wrist and ankle restraints and shanelle vest , call light within reach, purposeful q30 min rounding Patient-specific fall prevention interventions for sensory deficits provided, if applicable: [X] N/A CARE PLAN GOAL OUTCOME EVALUATION: Consult Note - Lila Rowan RPH - 11/22/2021 2:38 PM EDT ?? The pharmacist-managed vancomycin consult service will sign-off and vancomycin therapy, if it is to be continued, must be ordered by the responsible prescriber. ?? Pharmacists??? therapeutic drug monitoring will continue for patients receiving vancomycin. Should specific assistance be needed regarding re- initation or continuation of vancomycin therapy, please page the care area pharmacist with any questions you may have. Alternately, during off-hours you may call [phone] to contact a pharmacist. Care Management - Jaclyn Fry RN - 11/22/2021 1:40 PM EDT OFFICE OF CARE MANAGEMENT PROGRESS NOTE LOS: Hospital Day 4 days Chart reviewed, care reviewed with primary team and at interdisciplinary rounds. Patient continues to meet inpatient level of care related to: S/P R toe amputation and I&D Functional status prior to admission: Assistive Equipment Home Environment: Others in the home: spouse. Current Living Arrangements: home/apartment/condo. Accessibility Concerns: Split level 2 into the home and 8 steps. Current Functional Ability: Assistive Equipment, Assistive Person DME used at home: cane - straight, wheelchair - manual, other (see comments), walker - standard (knee scooter) DME Needed at Discharge: Patient is insured through: Primary Insurance: MEDICARE Payor: MEDICARE / Plan: MEDICARE PART A & B / Product Type: *No Product type* / Secondary Insurance: AARP SUPPLEMENT Last Physical Therapy Recommendation: home with home health, to be determined pending medical status& functional progression with walker, front wheeled Last Occupational Therapy Recommendation: with Plan for discharge is: Pending Hospital Course and PT/OT Recommendations Agency Referrals: Pending hospital course and PT OT recommendations Transportation: family or friend will provide Barriers to discharge: Discharge planning Plan going forward: Care Management will continue to follow and assist with discharge planning and coordination of care as indicated. Anticipated Date of Discharge: 11/26/2021 Jaclyn Fry [facility] [phone] Consult Note - Celina Arce RN - 11/22/2021 1:15 PM EDT PICC line placement canceled for this patient due to being unable to obtain consent from after multiple attempts. Consult Note - Jeanie Tenorio [facility] - 11/22/2021 10:44 AM EDT Clinical Pharmacist Note-Vanc Soledad Ramos [id number] Soledad Ramos is a 66 y.o. male is being monitored due to antibiotic therapy which includes intravenous vancomycin. Regimen: Vancomycin 1500 mg every 12 hours Indication: empiric coverage of SSTI (gangrenous toe) infection Initiation Date: 11/18/21 Day of Therapy: 5 Targeted Goal Range: 15 - 20 mcg/mL Pharmacokinetic information: Wt Readings from Last 1 Encounters: 11/18/21 98.2 kg (216 lb 9.6 oz) Ht Readings from Last 1 Encounters: 11/20/21 175.3 cm (5' 9) Labs: Vancomycin: 11/20/2021: Vanc Trough 18.8 mg/L (Ref range: mg/L) 11/22/2021: Vanc Trough 21.4 mg/L (CRIT; Ref range: mg/L) Creatinine clearance: 11/18/2021: Creatinine 0.93 mg/dL (Ref range: 0.80 - 1.50 mg/dL) 11/19/2021: Creatinine 0.98 mg/dL (Ref range: 0.80 - 1.50 mg/dL) 11/20/2021: Creatinine 0.80 mg/dL (Ref range: 0.80 - 1.50 mg/dL) 11/21/2021: Creatinine 0.93 mg/dL (Ref range: 0.80 - 1.50 mg/dL) Estimated Half-Life (T1/2) = 10 hours Estimated Volume of distribution (Vd) = 68.7 Liters Estimated Elimination Rate Constant (ke) = 0.0703 Estimated Cmax = 31.9 Estimated trough (Cmin) = 15.3 Recommendations: Dosing recommendations: ?? Based on this information a dose of 1250 mg every 12 hours, to start now should achieve an estimated trough level of 15 - 20 mcg/mL. Monitoring recommendations: A new steady state level should be achieved after 4 half-lives. We will continue to monitor the patient as long as he remains on vancomycin therapy. Please watch SCr, BUN and fluid status closely. Please page the care area pharmacist with any questions you may have. Alternately, during off-hours you may call [phone] to contact a pharmacist. Jeanie Tenorio RPH Pager [phone] Plan of Care - Zbigniew Riddle RN - 11/22/2021 1:18 AM EDT OUTCOME EVALUATION NOTE: OUTCOME SUMMARY: Pt alert to place and self, not redirectable. Remains in 4 point soft restraints and shanelle. Hypertensive w/ SBP into 180's, sched metop given w/ somewhat + effect, MD aware. Otherwise VSS on RA WA and 2L nc during sleep. Reports slight pain to R. Great toe, PRN acetaminophen given. No SOB, n/v, or further discomforts. Cont of both. No BM this shift. ABX given per JUL. Wound vac functioning w/o incident. Safety measures in place. Please see flow sheets for further information. PLAN MOVING FORWARD: Restraints Debridement Friday Wound vac Needs PICC ABX INDIVIDUALIZED FALL PREVENTION INTERVENTIONS: Patient-specific fall risk factors per assessment: [current deficits]: High Assistance [level of assistance required for transfers and ambulation]: Ax1 in bed Supervision [direct monitoring required during toileting and ADLs]: Hands on Surveillance [continuous indirect monitoring]: umesh Bains purpose CARE PLAN GOAL OUTCOME EVALUATION: Plan of Care - Bridgette Cho RN - 11/21/2021 12:34 PM EDT OUTCOME EVALUATION NOTE: OUTCOME SUMMARY: Pt alert but confused and disoriented to place and time. VSS on RA, except hypertensive up to the 160s/90s. aware. Pt endorses 8/10 pain in R foot. PRN Tylenol given (see MAR). IV Vanco, Zosyn, and Clindamycin administered. Plan for PICC placement tomorrow. Scheduled PO Phenobarbital administered per RASS scale. Wet to dry dressing maintained on R big toe. Pt NPO for debridement on R great toe in OR. However, nerve block given off unit and wound vac placed at bedside. After wound vac placement, pt became restless and aggressive while attempting to leave. Cognitive impaired restraints initiated and PRN IV Phenobarbital administered for agitation. Assessment as filed. Safety maintained. Will helen nue to monitor. PLAN MOVING FORWARD: PICC placement 11/22 IV abx Pain management VS q4h INDIVIDUALIZED FALL PREVENTION INTERVENTIONS: Bed alarm set, wheels locked and bed in lowest position, side rails up x3, call romero/personal items within reach, non-skid socks when OOB, purposeful hourly rounding, room near nurse's station Patient-specific fall risk factors per assessment: [current deficits]: IV site, generalized weakness, non-wt bearing on RLE Assistance [level of assistance required for transfers and ambulation]: 1 Assist w/ walker Supervision [direct monitoring required during toileting and ADLs]: Hands on Surveillance [continuous indirect monitoring]: Masimo on Patient-specific fall prevention interventions for sensory deficits provided, if applicable: [X] N/A CPG GOAL OUTCOME EVALUATION: Consult Note - Celina Arce RN - 11/21/2021 7:09 AM EDT Phlebitis Location of Phlebitis: Left Arm Phlebitis Scale:4 [ ] +0 No symptoms [ ] +1 Erythema at access site with or without pain. [ ] +2 Pain at access site with [ ] erythema and/or [ ] edema. [ ] +3 Pain at access site with [ ] erythema and/or [ ] edema [ ] Streak formation [ ] Palpable venous cord. [X ] +4 Pain at access site with [ X ] erythema and/or [X ] edema [ X ] Streak formation [X ] Palpable venous cord > 1 inch in length [ ] Purulent drainage. Site measurement: 12x4cm Circumference of affected extremity 29cm @ 7cm below AC Circumference of unaffected extremity 28cm @ 7cm below AC Treatment initiated or recommended [X ] Heat [ X ] Rest [ ] Elevation [ ] Other Photo image to be inserted here: Comments: Plan of Care - Jeanie Ramos RN - 11/21/2021 2:31 AM EDT OUTCOME EVALUATION NOTE: OUTCOME SUMMARY: Pt Alert to self and place, disoriented to situation and time. VSS on 2L NC during sleep ex for hypertensive BP (180's/100s) MDs aware with no updates to plan of care. IV antibiotics continued. Wet to dry dressing intact on RLE, seen by team and ok to remain in place. Pt given phenobarbital x1 for RASS score of over -1. Shanelle and soft wrist restraints removed. Pt up to BR 1a with walker, needing frequent reminders of NWB status to RLE. Pt NPO since midnight for washout and debridement of R toe amp in OR. Medications given per JUL, assessment as filed. Will continue to monitor and notify team of changes. 0530: IV antibiotics (clindamycin and zosyn) due @5am held, pts IV leaked a bit when flushed, and redness noted at and around IV site; IV team notified to assess site. PLAN MOVING FORWARD: Wound Debridement/Washout 11/21 PT/OT IV antibiotics ?? INDIVIDUALIZED FALL PREVENTION INTERVENTIONS: ?? Patient-specific fall risk factors per assessment: [current deficits]: Pain, generalized weakness, IV sites/lines, wound vac, NWB to RLE ?? Assistance [level of assistance required for transfers and ambulation]: 1a w FWW ?? Supervision [direct monitoring required during toileting and ADLs]: Hands on, eyes on ?? Surveillance [continuous indirect monitoring]: Masimo, bed alarm on, room near nurse's station, callbell within reach, purposeful rounding ?? Patient-specific fall prevention interventions for sensory deficits provided, if applicable: [X] N/A ? CARE PLAN GOAL OUTCOME EVALUATION: Plan of Care - Jeanie Ramos RN - 11/20/2021 2:40 AM EDT OUTCOME EVALUATION NOTE: OUTCOME SUMMARY: Pt remains A+Ox4 and pleasant throughout shift. VSS on 2L NC during sleep, ex for hypertensive Bps (180's/90's); MDs aware, ordered x1 dose IV hydralazine. IV antibiotics continued, IV removed and replaced per IV team. WoundVac maintained at -125 continuous suction. Endorses 5-8/10 pain RLE, given PRNsubQ dilaudid x3. Pt up to BR 1a with walker, had BM x1. Pt remains NPO for washout and debridement of R toe amp. Medications given per JUL, assessment as filed. Will continue to monitor, and notify team of changes. PLAN MOVING FORWARD: Wound Debridement/Washout 11/20 PT/OT IV antibiotics INDIVIDUALIZED FALL PREVENTION INTERVENTIONS: Patient-specific fall risk factors per assessment: [current deficits]: Pain, generalized weakness, IV sites/lines, wound vac, NWB to RLE Assistance [level of assistance required for transfers and ambulation]: 1a w FWW Supervision [direct monitoring required during toileting and ADLs]: Hands on, eyes on Surveillance [continuous indirect monitoring]: Masimo, bed alarm on, room near nurse's station, callbell within reach, purposeful rounding Patient-specific fall prevention interventions for sensory deficits provided, if applicable: [X] N/A CARE PLAN GOAL OUTCOME EVALUATION: Consult Note - Sparkle Ramos RPH - 11/19/2021 2:42 PM EDT TelePharmacy Home Medication List Update for Medication Reconciliation 11/19/21 2:42 PM Soledad Ramos 1955 Allergies Allergen Reactions ??? Morphine Other (See Comments) STATES THAT IT DOES NOT TAKE HIS PAIN AWAY ??? Person Interviewed: (Padmini) ??? Quality of Interview/accuracy of medication list: fair ??? Sources used to compile medication list: [x] Epic medication list [x] SureScripts [] PCP/Specialist list [] Retail pharmacy [] Patient list [] MAR [] Other ??? Changes made to home medication list: o Additions: - Gabapentin 600mg PO TID - Mirtazapine 30mg PO qHS o Deletions: - Chantix - Donepezil - Dulera - Nicotine patch - Spiriva o Changes: - Buspirone 30mg PO BID ??? Additional Notes: o Please note: Padmini was very concerned that the team would not be aware that the patient has not short term memory. ??? Recommended changes: none The home medication list is now updated to the best of my knowledge and is ready to be reconciled bythe provider. Please contact the TelePharmacy Medication Reconciliation Pharmacist at for any questions. Sparkle Ramos RPH Initial Assessments - Jaclyn Fry RN - 11/19/2021 9:11 AM EDT Office of Care Management Initial Assessment Jaclyn Fry RN reviewed record and discussed patient with Care Team. Source of Information: Team, bedside nurse, medical record, and Spouse Padmini Introduced self/reviewed role; services accepted. Reason for Hospitalization: Sore big toe Covid Vaccination Status: 1st & 2nd dose (Verivue) Last COVID test: Lab Results Component Value Date [id number] Not Detected 03/09/2020 Past medical History: Past Medical History: Diagnosis Date ??? Ankle fracture, left 06/13/2015 ??? Cirrhosis Chronic HCV and history of alcohol use ??? Community acquired pneumonia 08/19/2012 ??? COPD (chronic obstructive pulmonary disease) ??? Depression ??? GERD (gastroesophageal reflux disease) ??? Hepatitis C ??? Hip pain 02/22/2016 ??? HTN (hypertension) ??? Knee pain 02/22/2016 ??? Retention of urine 09/07/2015 ??? s/p L 4th ray amp for osteo, 03/10/2020 Gitajn 03/10/2020 ??? S/P L TKA 12/13/15 Dr. Mallory 12/13/2015 ??? SDH (subdural hematoma) 05/07/2019 Hospitalizations Within the Past 30 Days: no previous admission in last 30 days Current Decision-Making Capacity: Self Advance Care Planning: Attempt Cardiopulmonary Resuscitation - Inpatient <no information> -Advanced Directive: No, need to discuss If AD's have not been completed spouse Padmini would be surrogate decision maker per [place] surrogate decision making law. (Only good for 180 days) Any patient receiving care at [facility] must abide by [place] law. The hierarchy for surrogate decision making is: (a) Patient???s spouse, or civil union partner or common law spouse unless there is a divorce proceeding, separation agreement, or restraining order limiting that person???s relationship with the patient. (b) Any adult son or daughter of the patient. (c) Either parent of the patient. (d) Any adult brother or sister of the patient. (e) Any adult grandchild of the patient. (f) Any grandparent of the patient. (g) Any adult aunt, uncle, niece, or nephew of the patient. (h) A close friend of the patient. (i) The agent with financial power of oncology admin or a conservator appointed in accordance with RSA 464-A. (j) The guardian of the patient???s estate. Current Coping/Education/Information Needs: Current Functional Ability: Assistive Equipment, Assistive Person Functional Status Prior to Admission: Assistive Equipment Prior ADLs & IADLs: Independent with all ADLs & IADLs Home Environment: Others in the home: spouse. Current Living Arrangements: home/apartment/condo. Accessibility Concerns:Split level 2 into the home and 8 steps. Resource / Environmental Concerns: Resource/Environmental Concerns: none Current DME: cane - straight, wheelchair - manual, other (see comments), walker - standard (knee scooter) Home Address confirmed as: [address] [place] [phone] Social & Family Supports: All names listed below confirmed with patient as current and correct Extended Emergency Contact Information Primary Emergency Contact: Padmini Ramos [facility] Relation: Spouse Secondary Emergency Contact: Sparkle Khan [facility] Relation: Child Current Care Provided by: self Provides Primary Care For: No one Caregiver if needed: none Quality of Family relationships: helpful, involved, supportive Community Resources being provided currently: none Behavioral Health History: Patient take medciation for anxiety and deppression Substance Use/Abuse confirmed: Social History Tobacco Use Smoking Status Current Every Day Smoker ??? Packs/day: 1.00 ??? Years: 42.00 ??? Pack years: 42.00 ??? Types: Cigars, Cigarettes Smokeless Tobacco Never Used Tobacco Comment a pack or less a day 0 No problems reported 1-2 Low level 3-5 Moderate level 6-8 Substantial level 9- 10 Severe level 0 to 7 points: Low risk 8 to 15 points: Medium risk 16 to 19 points: High risk 20 to 40 points: Addiction likely Other Pertinent/Service Specific Information: patient has used [facility] in the past Health/Prescription Coverage: Primary Insurance: MEDICARE Payor: MEDICARE / Plan: MEDICARE PART A & B / Product Type: *No Product type* / Secondary Insurance: AARP SUPPLEMENT Prescription Coverage: Yes Preferred [facility]acy: [facility] [id number] [place] [id number] [facility] [phone] [facility] Home Delivery - [facility] [address] [facility] [address] [facility] [address] [facility] [address] [place] [id number] [facility] [address] [place] [id number] Status: Patient is a : No Primary Care Provider: Brian Fall APRN [phone] Patient/Caregiver Goals of Treatment: Return home Potential Needs for Transition of Care: none Agency Referrals: Not Applicable at this time pending hospital course and PT OT recommendations Transportation: no concerns Transportation Anticipated: family or friend will provide Concerns to be Addressed: no discharge needs identified Assessment: Patient is admitted to [facility] service for R toe amputation and I&D Plan: The patient alert and oriented and able to participate in discussion regarding DC plan. Patient with no apparent RNCM/SW needs at this time. No housing, transportation, insurance, resources concerns identified at this time. Supports in place to achieve a safe post-hospital transition. No identified barriers to accessing necessary care and/or follow-up after discharge. ??? Monitor pt progress ??? Review recommendations from other providers ??? Make referrals as needed ??? Monitor for O2 needs ??? Monitor for DME needs. A member of the Care Management team will continue to monitor progress, follow for continuity of care and assist with transition of care planning. Jaclyn Fry [facility] [phone] Plan of Care - Araceli Lee RN - 11/19/2021 3:08 AM EDT OUTCOME EVALUATION NOTE: OUTCOME SUMMARY: Pt A&OX4 VSS on 3L NC Medications administered per MAR Wound vac to R foot at -125, draining bright red drainage appropriately. Pt NPO after midnight in case further operation is needed R pedal pulse palpable, pt expressing numbness in R foot Pt resting between care No events, safety maintained PLAN MOVING FORWARD: More surgery? Wound Vac Discharge planning INDIVIDUALIZED FALL PREVENTION INTERVENTIONS: Patient-specific fall risk factors per assessment: [current deficits]: Wound, PIV sites, gen weakness Assistance [level of assistance required for transfers and ambulation]: 1 assist Supervision [direct monitoring required during toileting and ADLs]: Hands on Surveillance [continuous indirect monitoring]: Bed alarm on, call light in reach, masimo, purposefulrounding Patient-specific fall prevention interventions for sensory deficits provided, if applicable: [X] N/A CARE PLAN GOAL OUTCOME EVALUATION: Araceli Lee RN Op Note - Sammy Baker MD - 11/18/2021 9:35 PM EDT [facility] Operative Note Patient Name: Soledad Ramos : [id number] MR#: [id number] Case Date: 11/18/2021 Surgeon: Surgeon(s) and Role: * Sammy Baker MD - Primary * Anatoliy Oliva MD - Resident Preoperative diagnosis: Right great toe necrotic infection Postoperative diagnosis: Right great toe necrotic infection Procedure: Guillotine partial first ray resection right foot with wound vac application Findings: Necrotic soft tissue diffusely, Glistening, intact, longitudinal fibers of FHL. Metatarsalhead without erosive changes, medullary bone without softening. Cultures taken. Second toe soft tissue present over bone and joint. Anesthesia: General with block Estimated Blood Loss: 20 mL Specimens removed during surgery: Amputated great toe, 1st MT proximal bone Drains: NA Surgical Closure: Other Than Primary Closure - deep and superficial layers are left completely open during original surgery Disposition: aroused from sedation, and taken to the recovery room in a stable condition Condition: doing well without problems (Please see the Surgical Encounter Summary for any Implant and Specimen details pertinent to this patient.) HPI/Surgical Indications: Soledad Ramos is a medically comorbid 66-year-old male who [facility] for acute worsening for the past 3 days of a right great toe blister in the background of a chronic plantar ulcer. A surgical consent to proceed with irrigation debridement as well as amputation with level to be determined intraoperatively and serial procedures was discussed with the patient and all parties in agreementto proceed to the OR. Procedure Description: Patient was brought back to the operating room theater by anesthesia colleagues and identified with 2 patient identifiers. A regional block under ultrasound guidance was performed by anesthesia colleagues prior to a timeout for safe surgery. All parties in the room introduced themselves, the right lower extremity was identified as the correct laterality, antibiotics from the emergency department werecontinued for broad-spectrum coverage and all parties were in agreement with proceeding with irrigation debridement with amputation of the great toe and other procedures as indicated. An well-padded supramalleolar esmarch tourniquet was applied prior to incision. A racquet shaped incision was made over the great toe and amputated using Bovie cautery circumferentially releasing the soft tissues. The tissue appeared necrotic and significantly malodorous and the great toe was sent to pathology. A saw cut was made with a microsagittal saw of the metatarsal head and a culture of the proximal remaining bone was then sent for culture as well. The web space was debrided and capsular fibers of the 2nd MTP were encountered however were not not violated and appeared healthy. Decision to maintain the soft tissue envelope with some remaining fibrinous tissue as well as the chronic sinus tract plantarly was undertaken given the extra excursion and soft tissue cover her age it would provide.The tourniquet was taken down for a total of 80 minutes tourniquet time, adequate hemostasis was achieved using Bovie electrocautery and a black wound VAC sponge was placed over the exposed bone and set to -125 mmHg low continuous suction. The patient was then emerged from anesthesia and transferred to the hospital bed in stable condition and rolled to the recovery room. Surgical Infection Prevention Bundle Used? N/A Plan: - NPOMN for possible return to OR 11/19 pending AM discussion - Continue broad-spectrum antibiotics - Follow-up 11/18 intraop proximal bone cx, recommend engaging ID pending results - Vac -125mmHg, low continuous, 1 black sponge. - Appreciate hospital medicine care Attestation: Case Date: 11/18/2021 I was present and I participated during the entire procedure (does not need to include opening and closing). Sammy Baker MD 11/19/2021 Brief Op Note - Sammy Baker MD - 11/18/2021 9:30 PM EDT Brief Operative Note Patient Name: Soledad Ramos : [id number] MR#: [id number] Case Date: 11/18/2021 Surgeon: Surgeon(s) and Role: * Sammy Baker MD - Primary * Anatoliy Oliva MD - Resident Preoperative diagnosis: Right great toe necrotic infection Postoperative diagnosis: Right great toe necrotic infection Procedure(s) (LRB): AMPUTATION TOE, METATARSO-PHALANGEAL JOINT (WRVU 5.82) (Right) Anesthesia: General with block Findings: Necrotic soft tissue 1st toe Complications: None Estimated Blood Loss: 20 mL Specimens removed during surgery: Proximal bone culture, amputated toe Fluids: Intraprocedure Crystalloid Total None PRBCs: none (See Anesthesia Record/Report for Other Blood Products) Urine Output: (no urine output recorded) Drains: NA Disposition: awakened from anesthesia, extubated and taken to the recovery room in a stable condition, having suffered no apparent untoward event. Condition: doing well without problems (Please see the Surgical Encounter Summary for any Implant and Specimen details pertinent to this patient.) Surgical Infection Prevention Bundle Used? N/A Consult Note - Alis Dowling MD - 11/18/2021 5:39 PM EDT Images from the original note were not included. ORTHOPAEDIC SURGERY CONSULT NOTE ATTENDING: MD DIEGO Soledad Ramos is a 66 y.o. male who presents to see us in consultation today at the request of Lorrie Lundberg MD. Time Paged: saw patient before paged Time Patient Seen: 5:20 PM CHIEF COMPLAINT: RIGHT great toe infection HPI: Soledad Ramos is a 66 y.o. male with hx of ETOH abuse (peripheral neuropathy), prior L 4th-5thtoe amputations, cirrhosis, who presents with 1 day history of rapidly progressive infection of the right great toe. He states he did have a ulcer of the bottom of the toe that was relatively mild and he had not paid much attention to it and then last night he went to bed his foot did not look anything like it did today. He woke up and has had rapidly progressive erythema up the right lower extremityin addition to a enlarging necrotic appearance of his right great toe. He has been afebrile, vitals been stable, he has been otherwise not feeling systemically unwell. He was initially seen at [facility] today and presented there. See my prior telephone encounter for telephone consultation in which I requested he be transferred here for further evaluation and management with orthopedic surgery consultation. At [facility] his white count was 20 3K, his creatinine was 1.1, hemoglobin 13, glucose 117, sodium 137, CRP was 18 mg/L. Based on this his LRINEC score calculation is 6. Received Vanco and clindamycin at outside hospital. FOCUSED REVIEW OF SYSTEMS: as above. There are no hospital problems to display for this patient. Active Non-Hospital Problems Diagnosis ??? Pruritic rash ??? Cellulitis ??? Osteomyelitis ??? Neuropathic ulcer of toe of right foot with fat layer exposed ??? Neuropathic ulcer of foot, right, with fat layer exposed ??? Patient has active durable power of oncology admin (DPOA) designee for healthcare ??? Methadone dependence ??? Minimal cognitive impairment ??? Claustrophobia ??? Hyperlipidemia ??? Avascular necrosis of humeral head ??? Pain in left shoulder ??? Verruca plantaris ??? Gastroesophageal reflux disease ??? Cirrhosis ??? Polysubstance abuse ??? Avascular necrosis bilateral knees ??? Depressive disorder ??? Neuropathy ??? Chronic obstructive lung disease ??? Edema ??? Essential hypertension ??? Confusion ??? Hepatitis C ??? Gout ??? Alcohol dependence ??? Anxiety ??? ADHD NOS ??? Chronic back pain ??? Major depressive disorder, single episode, unspecified FAMILY HISTORY: Negative for bleeding/clotting disorders or anesthetic complications. SOCIAL HISTORY: Social History Tobacco Use Smoking Status Current Every Day Smoker ??? Packs/day: 1.00 ??? Years: 42.00 ??? Pack years: 42.00 ??? Types: Cigars, Cigarettes Smokeless Tobacco Never Used Tobacco Comment a pack or less a day Social History Substance and Sexual Activity Alcohol Use Yes ??? Alcohol/week: 22.0 - 23.0 standard drinks ??? Types: 21 Standard drinks or equivalent, 1 - 2 Cans of beer per week MEDICATIONS: No current facility-administered medications for this encounter. ??? albuteroL 90 mcg/actuation HFA Aerosol Inhaler ??? Chantix Starting Month Box 0.5 mg (11)- 1 mg (42) Tablets, Dose Pack ??? donepeziL (Aricept) 10 mg Tablet ??? metoprolol succinate XL (Toprol-XL) 50 mg Tablet Sustained Release 24 hr ??? pantoprazole EC (Protonix) 40 mg Tablet, Delayed Release (E.C.) ??? ondansetron ODT (Zofran-ODT) 8 mg Tablet, Rapid Dissolve ??? predniSONE (Deltasone) 20 mg Tablet ??? triamcinolone (KENALOG) 0.1 % Cream ??? lisinopriL (Prinivil;Zestril) 40 mg Tablet ??? nicotine (NICODERM CQ) 21 mg/24 hr Patch 24 hr ??? QUEtiapine (SEROquel) 25 mg Tablet ??? acetaminophen (Tylenol) 325 mg Tablet ??? furosemide (Lasix) 40 mg Tablet ??? buspirone HCl (BUSPIRONE ORAL) ??? methadone HCl (METHADONE ORAL) ??? SPIRIVA RESPIMAT 2.5 mcg/actuation Mist ??? PROAIR HFA 90 mcg/actuation HFA Aerosol Inhaler ??? meTOPROLOL succinate (TOPROL-XL) 100 mg Tablet Sustained Release 24 hr ??? DULERA 100-5 mcg/actuation HFA Aerosol Inhaler ??? multivitamin (THERAGRAN) tablet OBJECTIVE: Temp: [36.8 ??C (98.2 ??F)] Heart Rate: [86] Resp: [18] BP: (147)/(62) No intake or output data in the 24 hours ending 07/10/22 1731 There is no height or weight on file to calculate BMI. PHYSICAL EXAM: Gen: NAD, resting comfortably, AOx3 HEENT: NC, AT CV: RRR assessed peripherally Pulm: No incr WOB on RA Skin: Intact Psych: Nl mood and affect Right Lower Extremity Exam: Erythema tracking from the great toe up the proximal mid calf. This is been marked. Necrotic appearing wound of the right great toe with extension into the first webspace and enlargement of the right great toe. Sensation diminished diffusely about the foot consistent with his peripheral neuropathy at baseline. Left Lower Extremity Exam: Well-healed prior fourth and fifth toe amputation sites LABS: Last wbc, hgb, hct plt No results for input(s): WBC, HGB, HCT in the last 72 hours. Invalid input(s): PLT Last 3 wbc, hgb, hct plt No results for input(s): WBC, HGB, HCT, PLATELET in the last 7068 hours. Last CRP, SEDRATENo results for input(s): CRP, SEDRATE in the last 7068 hours. IMAGING: Xray RIGHT foot Erosive changes in distal phalanx of right great toe with subcutaneous air about the first toe and webspace. ASSESSMENT/RECOMMENDATIONS: 66 y.o. male who presents with RIGHT great toe rapidly progressvie infection concerning given acuity of findings and progression. LRINEC 6. Does not appear to be conssitent with NSTI but will also obtain CT RLE to ensure not tracking up proximally. Given acuity and rapid progression of this infection, in hopes to prevent systemic infection or sepsis, will plan to take to the operating room as a C case. Plan to admit to hospital medicine given significant comorbidities and medical complexity. Plan to continue antibiotics. Plan to perform a guillotine amputation of the right great toe with wound VAC placement, discussed possible higher level amputation if necessary intraoperatively. - Activity- NWB RLE - DVT prophylaxis- pending OR - Antibiotics: Continue vanco/clinda - Diet - NPO - Imaging needed- CT RLE - Discussed with Dr. Baker, who saw patient bedside with me Please page Orthopaedic consults ([phone]) with any questions or concerns. Alis Dowling MD P. [phone] 11/18/21 5:31 PM Future Appointments Date Time Provider Department Center 01/15/2022 12:[address] [facility] [address] [facility] [address] [facility] Rad Associated attestation - Sammy Baker MD - 11/18/2021 5:45 PM EDT Patient seen and examined on rounds. Agree with resident note. In brief, patient is a 66-year-old male with a history of alcohol abuse peripheral neuropathy prior multiple amputations on his contralateral leg who presents with 1 day history of rapid right great toe infection. His right great toe showsnecrotic gangrenous findings on the lateral aspect the toe with significant erythema to the mid tibia. There is an x-ray which shows gas producing in the area of the great toe without any a sending gasseen in fascial planes on x-ray. At this point, due to his elevated inflammatory markers and white blood cell count and rapid infection the decision was made to bring him back to the operating room perform a guillotine likely first partial ray resection. I reviewed the risks and benefits of the patient. Patient signed informed consent. I discussed the potential for further amputation. I discussed theneed for IV antibiotics. Patient is comfortable with this approach. Sammy Baker M.D. [place] Department of Orthopaedics ED Triage - Bridget Baron MD - 11/18/2021 2:55 PM EDT Coming from [facility] with concern for Right foot wound infection progression. Complex PMH includes Hep C, COPD on supplemental 02. WBC 23. Ortho requests patient be NPO, CT of lower extremity to evaluate soft tissue infection. Consult ortho/medicine if admission needed. documented in this encounter Plan of Treatment Upcoming Encounters Date Type Specialty Care Team Description 12/11/2021 Appointment Radiology 12/11/2021 Office Visit Orthopaedics Marion Tavera APRN [facility]OPA[facility]IC SURG [place], [place] [address] (Wo rk) 01/15/2022 Appointment Radiology Stiven Cervantes MD [facility] er Pulmonary Medici [place], [place] [address] (Wo rk) Scheduled Orders Name Type Priority Associated Diagnoses Order S chedule SURGICAL CASE REQUEST: Procedures Routine One T josi for 1 DEBRIDEMENT SKIN, Occurrence s starting SUBCU, MUSCLE, LOWER 022 until EXTREMITY (WRVU 2.7) 022 XR Foot Min 3 views Imaging Routine Chronic foot ulcer, E xpected: 12/11/2021, Right (Generic) unspecified Expires: laterality, unspecified ulcer stage Scheduled Procedures Name Priority Associated Diagnoses Date/Time DEBRIDEMENT SKIN, SUBCU, MUSCLE, R great toe amp utation, wound LOWER EXTREMITY (WRVU 2.7) closure MODIFIER WOUND VAC R great toe amputation, wound closure Scheduled Referrals Name Type Priority Associated Diagnoses Order S chedule OPAT: Order / Outpatient Routine Osteomyelitis of great Orde red: Recommendation for Referral toe of right foot 11/28/2021 Post Discharge IV Diabetic infection of Antibiotic Management right foot Coagulase-negative staphylococcal infection Sequela of Corynebacterium infection Bacteroides infe ction Proteus mirabilis infection Infection due to species of Streptococcus milleri group Cellulitis of foot, right Referral to Home Outpatient Routine Acute osteomyelitis of O rdered: Health Referral right foot 11/29/2021 S/p right great toe amp, I&D, vac 11/18/21 (Diego) documented as of this encounter Goals Goal Patient Goal Associated Recent Patient-Stated? Author Type Problems Progress DH Home Medication Patient On track No Ryan, Compliance and Facing (07/31/2016 Julia Esquivel, Understanding Action Plan 9:07 AM EDT) [facility] Note: Formatting of this note might be d ifferent from the original. Patient Goal: To experience less side ef fects than his past regimen of Peg and Ribavirin Timeframe to meet goal: 3 months of ther apy documented as of this encounter Procedures Procedure Name Priority Date/Time Associated Diagnosis Comme nts EKG 12-LEAD Routine 11/29/2021 1:02 QT prolongation Results f or this PM EDT procedure are i n the results section. HEMOGRAM Routine 11/29/2021 3:40 Results for this AM EDT procedure are i n the results section. DIFFERENTIAL, AUTOMATED Routine 11/29/2021 3:40 R esults for this AM EDT procedure are i n the results section. HC CBC,PLT & AUTO DIFF Routine 11/29/2021 3:40 AM EDT BASIC METABOLIC PANEL Routine 11/29/2021 3:40 Res ults for this (NON-FASTING) AM EDT procedure are in the results section. HC POTASSIUM Routine 11/28/2021 6:30 Results for this PM EDT procedure are i n the results section. HEMOGRAM Routine 11/28/2021 3:15 Results for this AM EDT procedure are i n the results section. DIFFERENTIAL, AUTOMATED Routine 11/28/2021 3:15 R esults for this AM EDT procedure are i n the results section. HC CBC,PLT & AUTO DIFF Routine 11/28/2021 3:15 AM EDT MAGNESIUM Routine 11/28/2021 3:15 Results for this AM EDT procedure are i n the results section. BASIC METABOLIC PANEL Routine 11/28/2021 3:15 Res ults for this (NON-FASTING) AM EDT procedure are in the results section. PLACE PICC LINE: Routine 11/27/2021 4:03 Results for this CONTACT VASCULAR ACCESS PM EDT proc edure are in the results section. XR PICC PLACEMENT OVER Routine 11/27/2021 3:45 Re sults for this 5 YEARS (IV TEAM) PM EDT procedure are in the results section. EKG 12-LEAD Routine 11/27/2021 11:44 QT prolongation Results for this AM EDT procedure are i n the results section. C. DIFFICILE SCREEN Routine 11/26/2021 1:47 Resul ts for this PM EDT procedure are i n the results section. HEMOGRAM Routine 11/26/2021 6:56 Results for this AM EDT procedure are i n the results section. DIFFERENTIAL, AUTOMATED Routine 11/26/2021 6:56 R esults for this AM EDT procedure are i n the results section. HC CBC,PLT & AUTO DIFF Routine 11/26/2021 6:56 AM EDT MAGNESIUM Routine 11/26/2021 6:56 Results for this AM EDT procedure are i n the results section. CK Routine 11/26/2021 6:56 Results for this AM EDT procedure are i n the results section. BASIC METABOLIC PANEL Routine 11/26/2021 6:56 Res ults for this (NON-FASTING) AM EDT procedure are in the results section. AMPUTATION, Routine 11/25/2021 9:20 TRANSMETATARSAL AM EDT ANAEROBIC CULTURE Routine 11/25/2021 9:00 Results for this AM EDT procedure are i n the results section. HC TISSUE CULTURE Routine 11/25/2021 9:00 AM EDT TISSUE CULTURE Routine 11/25/2021 9:00 Results fo r this AM EDT procedure are i n the results section. AMPUTATION, 11/25/2021 8:26 osteomyelitis of TRANSMETATARSAL (WRVU AM EDT right great toe 12.71) DEBRIDEMENT SKIN, 11/25/2021 8:26 osteomyelitis of SUBCU, MUSCLE, BONE, AM EDT right great toe LOWER EXTREMITY (WRVU 4.1) DEBRIDEMENT SKIN, Routine 11/25/2021 2:33 SUBCU, MUSCLE, BONE, AM EDT LOWER EXTREMITY XR FOOT MIN 3 VIEWS Routine 11/23/2021 6:36 Resul ts for this RIGHT PM EDT procedure are i n the results section. HEMOGRAM Routine 11/23/2021 4:28 Results for this PM EDT procedure are i n the results section. DIFFERENTIAL, AUTOMATED Routine 11/23/2021 4:28 R esults for this PM EDT procedure are i n the results section. HC CBC,PLT & AUTO DIFF Routine 11/23/2021 4:28 PM EDT HC PHOSPHORUS, SERUM Routine 11/23/2021 4:28 Resu lts for this PM EDT procedure are i n the results section. BASIC METABOLIC PANEL Routine 11/23/2021 4:28 Res ults for this (NON-FASTING) PM EDT procedure are in the results section. AMPUTATION, Routine 11/23/2021 1:52 TRANSMETATARSAL TOE, PM EDT ONE TOE ANAEROBIC CULTURE Routine 11/23/2021 1:06 Results for this PM EDT procedure are i n the results section. ANAEROBIC CULTURE Routine 11/23/2021 1:06 Results for this PM EDT procedure are i n the results section. ANAEROBIC CULTURE Routine 11/23/2021 1:06 Results for this PM EDT procedure are i n the results section. HC TISSUE Routine 11/23/2021 1:06 HOMOGENIZATION FOR PM EDT CULTURE HC TISSUE Routine 11/23/2021 1:06 HOMOGENIZATION FOR PM EDT CULTURE HC TISSUE Routine 11/23/2021 1:06 HOMOGENIZATION FOR PM EDT CULTURE BONE CULTURE Routine 11/23/2021 1:06 Results for this PM EDT procedure are i n the results section. BONE CULTURE Routine 11/23/2021 1:06 Results for this PM EDT procedure are i n the results section. BONE CULTURE Routine 11/23/2021 1:06 Results for this PM EDT procedure are i n the results section. MODIFIER WOUND VAC 11/23/2021 12:28 Right great toe PM EDT amputation AMPUTATION, 11/23/2021 12:28 Right great toe TRANSMETATARSAL TOE, PM EDT amputation ONE TOE (WRVU 6.64) HC VENIPUNCTURE Routine 11/22/2021 6:07 Results f or this PM EDT procedure are i n the results section. HC PHOSPHORUS, SERUM Routine 11/22/2021 8:29 Resu lts for this AM EDT procedure are i n the results section. HC VANCOMYCIN Timed 11/22/2021 8:29 Results for this AM EDT procedure are i n the results section. HC PHOSPHORUS, SERUM Routine 11/21/2021 6:46 Resu lts for this PM EDT procedure are i n the results section. HEMOGRAM Routine 11/21/2021 8:38 Results for this AM EDT procedure are i n the results section. DIFFERENTIAL, AUTOMATED Routine 11/21/2021 8:38 R esults for this AM EDT procedure are i n the results section. HC CBC,PLT & AUTO DIFF Routine 11/21/2021 8:38 AM EDT HC PHOSPHORUS, SERUM Routine 11/21/2021 8:38 Resu lts for this AM EDT procedure are i n the results section. HEPATIC FUNCTION PANEL Routine 11/21/2021 8:38 Re sults for this AM EDT procedure are i n the results section. BASIC METABOLIC PANEL Routine 11/21/2021 8:38 Res ults for this (NON-FASTING) AM EDT procedure are in the results section. HC PHOSPHORUS, SERUM Routine 11/20/2021 6:22 Resu lts for this PM EDT procedure are i n the results section. EKG 12-LEAD STAT 11/20/2021 12:47 Essential Results for this PM EDT hypertension procedure are i n the results section. HC PHOSPHORUS, SERUM Routine 11/20/2021 8:48 Resu lts for this AM EDT procedure are i n the results section. HC VANCOMYCIN Timed 11/20/2021 8:48 Results for this AM EDT procedure are i n the results section. HEMOGRAM Routine 11/20/2021 4:59 Results for this AM EDT procedure are i n the results section. DIFFERENTIAL, AUTOMATED Routine 11/20/2021 4:59 R esults for this AM EDT procedure are i n the results section. HC VENIPUNCTURE Routine 11/20/2021 4:59 AM EDT BASIC METABOLIC PANEL Routine 11/20/2021 4:59 Res ults for this (NON-FASTING) AM EDT procedure are in the results section. DEBRIDEMENT SKIN, Routine 11/19/2021 6:31 SUBCU, MUSCLE, BONE, AM EDT LOWER EXTREMITY HEMOGRAM Routine 11/19/2021 5:56 Results for this AM EDT procedure are i n the results section. DIFFERENTIAL, AUTOMATED Routine 11/19/2021 5:56 R esults for this AM EDT procedure are i n the results section. HC ESR-SEDIMENTATION Routine 11/19/2021 5:56 Resu lts for this RATE, BLOOD AM EDT procedure are i n the results section. HC VENIPUNCTURE Routine 11/19/2021 5:56 AM EDT BASIC METABOLIC PANEL Routine 11/19/2021 5:56 Res ults for this (NON-FASTING) AM EDT procedure are in the results section. SURGICAL PATHOLOGY Routine 11/18/2021 8:56 Result s for this REPORT PM EDT procedure are i n the results section. SPECIMEN TO PATHOLOGY Routine 11/18/2021 8:56 Res ults for this PM EDT procedure are i n the results section. ANAEROBIC CULTURE Routine 11/18/2021 8:52 Results for this PM EDT procedure are i n the results section. ANAEROBIC CULTURE Routine 11/18/2021 8:52 Results for this PM EDT procedure are i n the results section. ANAEROBIC CULTURE Routine 11/18/2021 8:52 Results for this PM EDT procedure are i n the results section. HC GRAM STAIN FOR Routine 11/18/2021 8:52 BACTERIA PM EDT HC GRAM STAIN FOR Routine 11/18/2021 8:52 BACTERIA PM EDT HC GRAM STAIN FOR Routine 11/18/2021 8:52 BACTERIA PM EDT ABSCESS/WOUND ASPIRATE Routine 11/18/2021 8:52 Re sults for this CULTURE PM EDT procedure are i n the results section. ABSCESS/WOUND ASPIRATE Routine 11/18/2021 8:52 Re sults for this CULTURE PM EDT procedure are i n the results section. ABSCESS/WOUND ASPIRATE Routine 11/18/2021 8:52 Re sults for this CULTURE PM EDT procedure are i n the results section. AMPUTATION TOE, 11/18/2021 8:23 Right great toe METATARSO-PHALANGEAL PM EDT necrotic infection JOINT (WRVU 5.82) AMPUTATION TOE, Routine 11/18/2021 8:14 METATARSO-PHALANGEAL PM EDT JOINT CT LOWER EXTREMITY W STAT 11/18/2021 6:31 Resu lts for this CONTRAST RIGHT PM EDT procedure are in the results section. HC C-REACTIVE PROTEIN STAT 11/18/2021 5:25 Res ults for this PM EDT procedure are i n the results section. HEPATIC FUNCTION PANEL STAT 11/18/2021 5:25 Re sults for this PM EDT procedure are i n the results section. BASIC METABOLIC PANEL STAT 11/18/2021 5:25 Res ults for this (NON-FASTING) PM EDT procedure are in the results section. documented in this encounter Results EKG 12 Lead (11/29/2021 1:02 PM EDT) Component Value Ref Range Test Analysis Performed Pathologis t Method Time At Signature Ventricular rate 90 BPM MUSE SYSTEM Atrial Rate 90 BPM MUSE SYSTEM P-R Interval 148 ms MUSE SYSTEM QRS Duration 76 ms MUSE SYSTEM Q-T Interval 404 ms MUSE SYSTEM QTC Calculated 494 ms MUSE SYSTEM (Bezet) Calculated P [place] 52 degrees MUSE SYSTEM Calculated R [place] 27 degrees MUSE SYSTEM Calculated T [place] 57 degrees MUSE SYSTEM INTERPRETATION Normal sinus rhythm with sinus arrhythmia MUSE SYSTEM borderline EKG When compared with ECG of 27-NOV-2021 11:44, Criteria for Inferior infarct are no longer Present I personally reviewed the tracing and edited the fellows int erpretation Confirmed by fellow MD Alexandra, Marco A ([id number]) on 022 3:05:39 PM Confirmed by Najma Ren ([id number]) on 11/29/2021 6:50:48 P M Specimen Anatomical Collection Method Collection Time Receive d Time (Source) Location / / Volume Laterality 11/29/2021 1:02 PM 2 6:50 EDT PM EDT Jennifer Martinez MD ECG ORDERABLES Performing Organization Address City/State/ZIP Code Phon e Number MUSE SYSTEM (ABNORMAL) Differential, Automated (11/29/2021 3:40 AM EDT) [facility] Method Time Signature Neutrophils % 62.4 % [facility] Neutr Abs (ANC) 7.80 (H) 1.70 - [facility] 6.10 [facility] x10(3)/[facility] LABORATORY Lymphocytes % 23.8 % [facility] Lymphocytes Abs 3.0 0.9 - 3.2 [facility] x10(3)/[facility] LABORATORY Monocytes % 6.0 % [facility] Monocyte Abs 0.8 0.3 - 0.9 [facility] x10(3)/[facility] LABORATORY Eosinophils % 5.7 % [facility] Eosinophils Abs 0.7 (H) 0.0 - 0.4 [facility] x10(3)/[facility] LABORATORY Basophils % 1.3 % [facility] Basophils Abs 0.2 (H) 0.0 - 0.1 [facility] x10(3)/[facility] LABORATORY Immature Gran % 0.80 % [facility] Comment: Immature granulocytes(IG's)percentage an d absolute count will include metamyelocytes, myelocytes, and promyelo cytes. Blood smears from CBCs yielding IG's will be scanned manually for concor dance. If this scan disagrees with the automated IG or if promyelocytes are not ed, a manual differential will be performed. Shannan Gran Abs 0.10 (H) 0.00 - 0.04 x10(3)/[facility] LABORATORY Specimen Anatomical Collection Method Collection Time Receive d Time (Source) Location / / Volume Laterality Blood 11/29/2021 3:40 AM 2 4:00 EDT AM EDT Resulting Agency Comment Spec In Lab Cyndy Valerie I, PA HEMATOLOGY ORDERABLES Performing Organization Address City/[facility]/[place]IP [place] [address] (ABNORMAL) Hemogram (11/29/2021 3:40 AM EDT) Analysis Performed At Patho logist Time Signature WBC 12.5 (H) 4.0 - 9.5 [facility] x[facility] LABORATORY RBC 4.34 (L) 4.58 - [place] 5.54 [facility] x10(6)/[facility] LABORATORY Hemoglobin 13.9 13.7 - [facility] 16.5 g/dL [facility] Hematocrit 41.3 40.5 - [facility] 48.5 % [facility] MCV 95.2 (H) 82.9 - [facility] 93.1 [facility] LABORATORY MCH 32.0 27.5 - [place] 32.1 pg [facility] MCHC 33.7 32.0 - [place] 35.7 g/dL [facility] Platelets 494 (H) 145 - 357 [facility] x10(3)/[facility] LABORATORY RDWSD 49.2 (H) 36.0 - [place] 45.0 [facility] LABORATORY RDWCV 14.2 (H) 11.4 - [facility] KIRTI 13.8 % [facility] MPV 9.5 7.6 - 12.9 [facility] nRBC % Auto 0.0 % [facility] nRBC Abs Auto 0.000 0.000 - [place] 0.000 [facility] x10(3)/[facility] LABORATORY Specimen Anatomical Collection Method Collection Time Receive d Time (Source) Location / / Volume Laterality Blood 11/29/2021 3:40 AM 4:00 EDT AM EDT Resulting Agency Comment Spec In Lab NIEVES Peoples HEMATOLOGY ORDERABLES Performing Organization Address City/[facility]/[place] [address] (ABNORMAL) Basic Metabolic Panel (non-fasting) (11/29/2021 3:40 AM EDT) P athologist Signature Glucose Lvl 110 65 - 199 [facility] mg/dL [facility] Comment: Diabetes: >=200 mg/dL plus symp toms BUN 22 (H) 10 - 20 mg/dL [facility] LABORATORY Creatinine 1.47 0.80 - 1.50 mg/dL [facility] Sodium 138 135 - 145 mmol/L [facility] Potassium 3.7 3.5 - 5.0 mmol/L [facility] Comment: Please note: ??Patients with WBC >100,00 0 may have falsely elevated Potassium levels. ??For accurate Potassium quantif ication in these patients send serum separator tube (gold top) for subsequent determinations. ??Contact the Clinical Chemistry Laboratory if there are any qu estions. Chloride 101 98 - 107 mmol/L [facility] CO2 25 22 - 31 mmol/L [facility] Anion Gap 12 5 - 15 mmol/L [facility] Calcium 9.2 8.5 - 10.5 mg/dL [facility] Estimated GFR 52 (L) >=60 mL/min/1.73 m?? [facility] Comment: This patient's estimated GFR was calcula lul using the 2020 CKD-EPI equation. The estimated GFR can vary from the kaveh ured GFR by up to 30% in the absence of rapidly changing kidney function. Assess ment of the estimated GFR is not appropriate when creatinine concentratio ns are rapidly changing. For clinical situations in which a more precise estim ate of GFR is necessary, consider alternative methods of GFR estimation nunez ch as a 24-hour urine creatinine clearance. Assignment of CKD stage 1-5 for patients with an eGFR near the transition point between stages may be based on clinical assessment of muscle mass and symptoms in addition to eGFR. Specimen Anatomical Collection Method Collection Time Receive d Time (Source) Location / / Volume Laterality Blood 11/29/2021 3:40 AM 4:00 EDT AM EDT Resulting Agency Comment Spec In Lab Jennifer Martinez MD CHEMISTRY ORDERABLES Performing Organization Address City/State/[place] [address] Potassium (11/28/2021 6:30 PM EDT) athologist Signature Potassium 3.6 3.5 - 5.0 [facility] mmol/L [facility] Comment: Please note: ??Patients with WBC >100,00 0 may have falsely elevated Potassium levels. ??For accurate Potassium quantif ication in these patients send serum separator tube (gold top) for subsequent determinations. ??Contact the Clinical Chemistry Laboratory if there are any qu estions. Specimen Anatomical Collection Method Collection Time Receive d Time (Source) Location / / Volume Laterality Blood 11/28/2021 6:30 PM 6:39 EDT PM EDT Resulting Agency Comment Spec In Lab Jennifer Martinez MD CHEMISTRY ORDERABLES Performing Organization Address City/[facility]/ZIP Code Phon e Number [address] Magnesium (11/28/2021 3:15 AM EDT) athologist Signature Magnesium 0.74 0.69 - 1.07 [facility] mmol/[facility] LAB[facility] Specimen Anatomical Collection Method Collection Time Receive d Time (Source) Location / / Volume Laterality Blood Venous Draw / 11/28/2021 3:15 AM 11/29/19 3:25 Unknown EDT AM EDT Resulting Agency Comment Spec In Lab Stephanie Parrish MD CHEMISTRY ORDERABLES Performing Organization Address City/[facility]/[place] [address] (ABNORMAL) Differential, Automated (11/28/2021 3:15 AM EDT) [facility] Method Time Signature Neutrophils % 62.7 % [facility] Neutr Abs (ANC) 8.02 (H) 1.70 - [facility] 6.10 [facility] x10(3)/[facility] LABORATORY Lymphocytes % 24.2 % [facility] Lymphocytes Abs 3.1 0.9 - 3.2 [facility] x10(3)/[facility] LABORATORY Monocytes % 6.6 % [facility] Monocyte Abs 0.8 0.3 - 0.9 [facility] x10(3)/[facility] LABORATORY Eosinophils % 4.7 % [facility] Eosinophils Abs 0.6 (H) 0.0 - 0.4 [facility] x10(3)/[facility] LABORATORY Basophils % 0.8 % [facility] Basophils Abs 0.1 0.0 - 0.1 [facility] x10(3)/[facility] LABORATORY Immature Gran % 1.00 % [facility] Comment: Immature granulocytes(IG's)percentage an d absolute count will include metamyelocytes, myelocytes, and promyelo cytes. Blood smears from CBCs yielding IG's will be scanned manually for concor dance. If this scan disagrees with the automated IG or if promyelocytes are not ed, a manual differential will be performed. Shannan Gran Abs 0.13 (H) 0.00 - 0.04 x10(3)/[facility] LABORATORY Specimen Anatomical Collection Method Collection Time Receive d Time (Source) Location / / Volume Laterality Blood 11/28/2021 3:15 AM 3:23 EDT AM EDT Resulting Agency Comment Spec In Lab NIEVES Peoples HEMATOLOGY ORDERABLES Performing Organization Address City/State/[place] [address] (ABNORMAL) Hemogram (11/28/2021 3:15 AM EDT) Analysis Performed At Patho logist Time Signature WBC 12.8 (H) 4.0 - 9.5 [facility] x10(3)/[facility] LABORATORY RBC 4.38 (L) 4.58 - [facility] 5.54 [facility] x10(6)/[facility] LABORATORY Hemoglobin 13.9 13.7 - [facility] 16.5 g/dL [facility] Hematocrit 41.6 40.5 - [facility] 48.5 % [facility] MCV 95.0 (H) 82.9 - [facility] 93.1 [facility] LABORATORY MCH 31.7 27.5 - [place]ERN[place] 32.1 pg [facility] MCHC 33.4 32.0 - [facility] 35.7 g/dL [facility] Platelets 504 (H) 145 - 357 [facility] x10(3)/[facility] LABORATORY RDWSD 49.2 (H) 36.0 - [facility] 45.0 [facility] LABORATORY RDWCV 14.3 (H) 11.4 - [facility] 13.8 % [facility] LABORATORY MPV 9.3 7.6 - 12.9 [facility] LABORATORY nRBC % Auto 0.0 % [facility] nRBC Abs Auto 0.000 0.000 - [facility] 0.000 [facility] x10(3)/[facility] LABORATORY Specimen Anatomical Collection Method Collection Time Receive d Time (Source) Location / / Volume Laterality Blood 11/28/2021 3:15 AM 2 3:23 EDT AM EDT Resulting Agency Comment Spec In Lab NIEVES Peoples HEMATOLOGY ORDERABLES Performing Organization Address City/State/[place] [address] (ABNORMAL) Basic Metabolic Panel (non-fasting) (11/28/2021 3:15 AM EDT) P athologist Signature Glucose Lvl 114 65 - 199 [facility] mg/dL [facility] Comment: Diabetes: >=200 mg/dL plus symp toms BUN 14 10 - 20 mg/dL [facility] LABORATORY Comment: result rechecked-sf Creatinine 1.49 0.80 - 1.50 mg/dL [facility] LABORATORY Sodium 141 135 - 145 mmol/L [facility] LABORATORY Potassium 2.9 (Critical) 3.5 - 5.0 mmol/L [facility] Comment: Called by: sima, Read back by: claudia velazquez, Date/Time:11/28/21 04:00. Please note: ??Patients with WBC >100,00 0 may have falsely elevated Potassium levels. ??For accurate Potassium quantif ication in these patients send serum separator tube (gold top) for subsequent determinations. ??Contact the Clinical Chemistry Laboratory if there are any qu estions. Chloride 102 98 - 107 mmol/L [facility] CO2 25 22 - 31 mmol/L [facility] Anion Gap 14 5 - 15 mmol/L [facility] LAB[facility]ORY Calcium 9.0 8.5 - 10.5 mg/dL [facility] Estimated GFR 51 (L) >=60 mL/min/1.73 m?? [facility] Comment: This patient's estimated GFR was calcula lul using the 2020 CKD-EPI equation. The estimated GFR can vary from the kaveh ured GFR by up to 30% in the absence of rapidly changing kidney function. Assess ment of the estimated GFR is not appropriate when creatinine concentratio ns are rapidly changing. For clinical situations in which a more precise estim ate of GFR is necessary, consider alternative methods of GFR estimation nunez ch as a 24-hour urine creatinine clearance. Assignment of CKD stage 1-5 for patients with an eGFR near the transition point between stages may be based on clinical assessment of muscle mass and symptoms in addition to eGFR. Specimen Anatomical Collection Method Collection Time Receive d Time (Source) Location / / Volume Laterality Blood 11/28/2021 3:15 AM 2 3:24 EDT AM EDT Resulting Agency Comment Spec In Lab Jennifer Martinez MD CHEMISTRY ORDERABLES Performing Organization Address City/State/[place] [address] PICC Line: Contact Vascular Access Page [phone] Extremity to exclude: No restrictions; Is PICC procedure required PRIOR to patients discharge? Yes (11/27/2021 4:03 PM EDT) Narrative Khadijah Rabago RN - 11/27/2021 4:03 PM E DT Khadijah Rabago RN ? 11/27/2021 ??4:06 PM PICC/Midline Insertion Procedure Note Indications: Anti-infective This insertion was not to replace a malf unctioning catheter. This insertion was not due to a suspecte d line-associated infection. Location of Procedure: X-Ray Room 11 Risks and Benefits: The risks and benefits of this procedure were reviewed and informed consent was obtained obtained. Time Out: Prior to the start of the procedure, the patient's identity, intended procedure, site/side, correct p atient positioning and presence of the site rashid was confirmed as applicable. The medical history and chart were reviewed to rule out potential contraindications to the planned procedu re. Hand Hygiene: The burlap bag sewer did perform hand hygiene pr ior to line insertion. Catheter type: PICC Lot number: [id number] Procedure Technique: Skin was prepped with chlorhexidine. Skin preparation agent was completely dr y at the time of first skin puncture. The following barrier precaution methods were used:large sterile drape, maske/eye shield, large sterile g own, sterile gloves and cap. 3 ml of 1% Lidocaine was used for skin w heal. Ultrasound was used for guidance. ??Radiographic contrast ag ent was not injected for vein identification. Procedure Details: Order received for catheter placement. A 4 Fr. single lumen Bard Power catheter was placed into the right basilic vein over a 0.018 inch guidewire using modified seld thang technique and fluoroscopy. Arm circumference was 32 cm at 2 cm above the insertion site. Final catheter length (with trimming): 4 0 cm Internal: 40 cm External: 0 cm Tip in SVC per Joo The line was not placed over a guidewire . Post Procedure: Diagnosis: S/P Right great toe amputatio n Blood return noted on aspiration of line after placement confirmed. 5 mls of normal saline infuse d free flowing to gravity via PICC after insertion. Sterile dressi ng applied: CHG Impregnated Tegaderm. Findings: The patient did tolerate the procedure w ell. No Complications. Procedure Comments: KHADIJAH RABAGO RN 11/27/2021 Jennifer Martinez MD PROCEDURE/MINOR SURGICAL ORD ERABLES XR PICC Placement Over 5 Years with Imaging Guidance (IV Team) (11/27/2021 3:45 PM EDT) Anatomical Region Laterality Modality N/A Radio Fluoroscopy Specimen (Source) Anatomical Location Collection Method / Collectio n Time Received Time / Laterality Volume Impressions 11/27/2021 4:00 PM EDT Right upper extremity PICC line with the catheter tip satisfactorily positioned at the central SVC. I have personally reviewed the image(s) and the resident's interpretation and agree with the findings, Penny Ge MD at 11/27/2021 4:00 PM Thank you for letting us participate in the care of this patient. ??If you are a health care provider and have any questi ons regarding this report, please contact the number below. ??For patients who have questions please contact the health intensive care medicine specialist that requested your imaging first. ? Electronically signed by: Penny Ge MD , [facility] ([phone]), at 11/27/2021 4:00 PM Narrative 11/27/2021 4:00 PM EDT EXAMINATION: XR PICC PLACEMENT OVER 5 YEARS WITH IMAGING GUIDANCE (IV TEAM) CLINICAL HISTORY: Confirmation of PICC l ine placement TECHNIQUE: C-arm placement of PICC line. Limited view of the line tip only. COMPARISON: March 14, 2020 FINDINGS: Intraprocedural frontal radiog raph of the mediastinum demonstrates a right upper extremity PICC line, with th e catheter tip projected at the central SVC. Procedure Note Penny Ge MD - 11/27/2021 EXAMINATION: XR PICC PLACEMENT OVER 5 YE ARS WITH IMAGING GUIDANCE (IV TEAM) CLINICAL HISTORY: Confirmation of PICC l ine placement TECHNIQUE: C-arm placement of PICC line. Limited view of the line tip only. COMPARISON: March 14, 2020 FINDINGS: Intraprocedural frontal radiog raph of the mediastinum demonstrates a right upper extremity PICC line, with th e catheter tip projected at the central SVC. IMPRESSION Right upper extremity PICC line with the catheter tip satisfactorily positioned at the central SVC. I have personally reviewed the image(s) and the resident's interpretation and agree with the findings, Penny Ge MD at 11/27/2021 4:00 PM Thank you for letting us participate in the care of this patient. If you are a health care provider and have any questi ons regarding this report, please contact the number below. For patients w ho have questions please contact the health intensive care medicine specialist that requested your imaging first. Electronically signed by: Penny Ge MD , [facility] ([phone]), at 11/27/2021 4:00 PM Jennifer Martinez MD IMG FLUORO ORDERABLES EKG 12 Lead (11/27/2021 11:44 AM EDT) Component Value Ref Range Test Analysis Performed Pathologis t Method Time At Signature Ventricular rate 100 BPM MUSE SYSTEM Atrial Rate 100 BPM MUSE SYSTEM P-R Interval 150 ms MUSE SYSTEM QRS Duration 68 ms MUSE SYSTEM Q-T Interval 384 ms MUSE SYSTEM QTC Calculated 495 ms MUSE SYSTEM (Bezet) Calculated P [place] 38 degrees MUSE SYSTEM Calculated R [place] -7 degrees MUSE SYSTEM Calculated T [place] 37 degrees MUSE SYSTEM INTERPRETATION Normal sinus rhythm MUSE SYSTEM Septal infarct (cited on or before 20-NOV-2021) Inferior infarct , age undetermined Abnormal ECG When compared with ECG of 20-NOV-2021 12:47, No significant change was found I personally reviewed the tracing and edited the fellows int erpretation Confirmed by fellow MD Devorah, Debra ([id number]) on 11/28/2021 11: 56:35 AM Confirmed by MD Jacob, Cristian (62) on 11/28/2021 1:18:37 PM Specimen Anatomical Collection Method Collection Time Receive d Time (Source) Location / / Volume Laterality 11/27/2021 11:44 11/28/2021 1:18 AM EDT PM EDT Jennifer Martinez MD ECG ORDERABLES Performing Organization Address City/State/ZIP Code Phon e Number MUSE SYSTEM C. Difficile Screen (11/26/2021 1:47 PM EDT) Patholo gist Method Time Signature C Diff Screen See comment Negative [facility] Comment: Ag/Tox Neg C. diff?? Negative Clostridium difficile is not present in the specimen. If patient is having diarrhea suspected to be from an infecti ous cause, then Soap & Water Contact Precautions are still required. Test not appropriate. Corrected from Negative on 11/27/21 15:2 3:07 EDT by Elly Luna Specimen Anatomical Collection Method Collection Time Receive d Time (Source) Location / / Volume Laterality Stool 11/26/2021 1:47 PM 2 2:08 EDT PM EDT Resulting Agency Comment Spec In Lab Jennifer Martinez MD MICROBIOLOGY - GENERAL ORDER SILAS Performing Organization Address City/[facility]/[place] [address] CK (11/26/2021 6:56 AM EDT) athologist Signature CK, Total 74 0 - 200 [facility] unit/L [facility] Specimen Anatomical Collection Method Collection Time Receive d Time (Source) Location / / Volume Laterality Blood Venous Draw / 11/26/2021 6:56 AM 11/27/19 22 7:32 Unknown EDT AM EDT Resulting Agency Comment Spec In Lab NIEVES Peoples CHEMISTRY ORDERABLES Performing Organization Address City/[facility]/ZIP Code Phon e Number [address] Magnesium (11/26/2021 6:56 AM EDT) athologist [facility] Magnesium 0.75 0.69 - 1.07 [facility] mmol/L [facility] Specimen Anatomical Collection Method Collection Time Receive d Time (Source) Location / / Volume Laterality Blood Venous Draw / 11/26/2021 6:56 AM 11/27/19 22 7:32 Unknown EDT AM EDT Resulting Agency Comment Spec In Lab NIEVES Peoples CHEMISTRY ORDERABLES Performing Organization Address City/[facility]/[place] [address] (ABNORMAL) Differential, Automated (11/26/2021 6:56 AM EDT) [facility] gist Method Time Signature Neutrophils % 70.3 % [facility] Neutr Abs (ANC) 8.41 (H) 1.70 - [facility] 6.10 [facility] x10(3)/[facility] L LABORATORY Lymphocytes % 15.1 % [facility] Lymphocytes Abs 1.8 0.9 - 3.2 [facility] x10(3)/[facility] LABORATORY Monocytes % 7.9 % [facility] Monocyte Abs 1.0 (H) 0.3 - 0.9 [facility] x10(3)/[facility] LABORATORY Eosinophils % 4.4 % [facility] Eosinophils Abs 0.5 (H) 0.0 - 0.4 [facility] x10(3)/[facility] LABORATORY Basophils % 1.0 % [facility] Basophils Abs 0.1 0.0 - 0.1 [facility] x10(3)/[facility] LABORATORY Immature Gran % 1.30 % [facility] Comment: Immature granulocytes(IG's)percentage an d absolute count will include metamyelocytes, myelocytes, and promyelo cytes. Blood smears from CBCs yielding IG's will be scanned manually for concor dance. If this scan disagrees with the automated IG or if promyelocytes are not ed, a manual differential will be performed. Shannan Gran Abs 0.15 (H) 0.00 - 0.04 x10(3)/[facility] LABORATORY Specimen Anatomical Collection Method Collection Time Receive d Time (Source) Location / / Volume Laterality Blood 11/26/2021 6:56 AM 7:10 EDT AM EDT Resulting Agency Comment Spec In Lab Harley Raymond MD HEMATOLOGY ORDERABLES Performing Organization Address City/State/[place] [address] (ABNORMAL) Hemogram (11/26/2021 6:56 AM EDT) Analysis Performed At Patho logist Time Signature WBC 12.0 (H) 4.0 - 9.5 [facility] x10(3)/[facility] LABORATORY RBC 4.26 (L) 4.58 - [facility] 5.54 [facility] x10(6)/[facility] LABORATORY Hemoglobin 13.6 (L) 13.7 - [facility] 16.5 g/dL [facility] Hematocrit 40.5 40.5 - [place] 48.5 % [facility] MCV 95.1 (H) 82.9 - [place] 93.1 [facility] LABORATORY MCH 31.9 27.5 - [place] 32.1 pg [facility] MCHC 33.6 32.0 - [place] 35.7 g/dL [facility] Platelets 418 (H) 145 - 357 [facility] x10(3)/[facility] LABORATORY RDWSD 49.8 (H) 36.0 - [place] 45.0 [facility] LABORATORY RDWCV 14.4 (H) 11.4 - [place] 13.8 % [facility] MPV 9.3 7.6 - 12.9 [facility] LABORATORY nRBC % Auto 0.0 % [facility] nRBC Abs Auto 0.000 0.000 - [place] 0.000 [facility] x10(3)/[facility] LABORATORY Specimen Anatomical Collection Method Collection Time Receive d Time (Source) Location / / Volume Laterality Blood 11/26/2021 6:56 AM 7:10 EDT AM EDT Resulting Agency Comment Spec In Lab Harley Raymond MD HEMATOLOGY ORDERABLES Performing Organization Address City/State/[place] [address] (ABNORMAL) Basic Metabolic Panel (non-fasting) (11/26/2021 6:56 AM EDT) P athologist Signature Glucose Lvl 105 65 - 199 [facility] mg/dL [facility] Comment: Diabetes: >=200 mg/dL plus symp toms BUN 8 (L) 10 - 20 mg/dL [facility] Creatinine 1.20 0.80 - 1.50 mg/dL [facility] Sodium 143 135 - 145 mmol/L [facility] Potassium 3.6 3.5 - 5.0 mmol/L [facility] Comment: Please note: ??Patients with WBC >100,00 0 may have falsely elevated Potassium levels. ??For accurate Potassium quantif ication in these patients send serum separator tube (gold top) for subsequent determinations. ??Contact the Clinical Chemistry Laboratory if there are any qu estions. Chloride 109 (H) 98 - 107 mmol/L [facility] CO2 22 22 - 31 mmol/L [facility] Anion Gap 12 5 - 15 mmol/L [facility] Calcium 8.8 8.5 - 10.5 mg/dL [facility] Estimated GFR 66 >=60 mL/min/1.73 m?? [facility] Comment: This patient's estimated GFR was calcula lul using the 2020 CKD-EPI equation. The estimated GFR can vary from the kaveh ured GFR by up to 30% in the absence of rapidly changing kidney function. Assess ment of the estimated GFR is not appropriate when creatinine concentratio ns are rapidly changing. For clinical situations in which a more precise estim ate of GFR is necessary, consider alternative methods of GFR estimation nunez ch as a 24-hour urine creatinine clearance. Assignment of CKD stage 1-5 for patients with an eGFR near the transition point between stages may be based on clinical assessment of muscle mass and symptoms in addition to eGFR. Specimen Anatomical Collection Method Collection Time Receive d Time (Source) Location / / Volume Laterality Blood 11/26/2021 6:56 AM 2 7:10 EDT AM EDT Resulting Agency Comment Spec In Lab Jennifer Martinez MD CHEMISTRY ORDERABLES Performing Organization Address City/[facility]/ZIP Code Phon e Number [address] Anaerobic Culture (11/25/2021 9:00 AM EDT) [facility] gist Method Time Signature Anaerobic No anaerobic [facility] Culture organisms [facility] LABORATORY Specimen Anatomical Collection Method Collection Time Receive d Time (Source) Location / / Volume Laterality Leg 11/25/2021 9:00 AM 2 EDT 10:33 AM EDT Comment: Right foot proximal resection s ite first metatarsal. Resulting Agency Comment Spec In Lab Jarad Flores MD MICROBIOLOGY - GENERAL ORDER SILAS Performing Organization Address City/[facility]/ZIP Code Phon e Number [address] (ABNORMAL) Tissue culture (11/25/2021 9:00 AM EDT) Component Value Ref Test Analysis [facility] Range Method Time Signature Tissue Rare Coagulase negative Staphylococcus species [place] Culture One colony of Coagulase negative Staphylococcus species #2 [place] Rare Corynebacterium species [facility] Susceptibilities previously reported HOSPITAL (A) LABORATORY Gram Stain No Neutrophils seen. [place] No microorganisms seen. [facility] OCK (A) [facility] Organism Coagulase negative [place] Staphylococcus [place] species (A) [facility] Organism Corynebacterium [place] species (A) [facility] Specimen Anatomical Collection Method Collection Time Receive d Time (Source) Location / / Volume Laterality Leg 11/25/2021 9:00 AM EDT 10:33 AM EDT Comment: Right foot proximal resection s ite first metatarsal. Resulting Agency Comment Spec In Lab Jarad Flores MD MICROBIOLOGY - GENERAL ORDER SILAS Performing Organization Address City/State/ZIP Code Phon e Number [place] [address] XR Foot Min 3 views Right (Generic) (11/23/2021 6:36 PM EDT) Anatomical Region Laterality Modality Foot Right Digital Radiography Specimen (Source) Anatomical Location Collection Method / Collectio n Time Received Time / Laterality Volume Impressions 11/23/2021 7:11 PM EDT Status post transmetatarsal amputation of the right great toe with postsurgical changes. Thank you for letting us participate in the care of this patient. ??If you are a health care provider and have any questi ons regarding this report, please contact the number below. ??For patients who have questions please contact the health intensive care medicine specialist that requested your imaging first. ? Electronically signed by: Penny Ge MD , [facility] ([phone]), at 11/23/2021 7:11 PM Narrative 11/23/2021 7:11 PM EDT EXAMINATION: XR FOOT MIN 3 VIEWS RIGHT (GENERIC) CLINICAL HISTORY: s/p great toe amputati on TECHNIQUE: 3 views RIGHT foot COMPARISON: November 18, 2021 FINDINGS: Status post interval transmetatarsal gre at toe amputation. Soft tissue defect consistent with recent surgical interven tion. Overlying drain. Patient is status post resection of the neck and head of t he fourth metatarsal. Remodeling of the head neck of the fifth metatarsal. Procedure Note Penny Ge MD - 11/23/2021 EXAMINATION: XR FOOT MIN 3 VIEWS RIGHT ( GENERIC) CLINICAL HISTORY: s/p great toe amputati on TECHNIQUE: 3 views RIGHT foot COMPARISON: November 18, 2021 FINDINGS: Status post interval transmetatarsal gre at toe amputation. Soft tissue defect consistent with recent surgical interven tion. Overlying drain. Patient is status post resection of the neck and head of t he fourth metatarsal. Remodeling of the head neck of the fifth metatarsal. IMPRESSION Status post transmetatarsal amputation o f the right great toe with postsurgical changes. Thank you for letting us participate in the care of this patient. If you are a health care provider and have any questi ons regarding this report, please contact the number below. For patients w ho have questions please contact the health intensive care medicine specialist that requested your imaging first. Afshin Rogers MD IMG DX ORDERABLES (ABNORMAL) Differential, Automated (11/23/2021 4:28 PM EDT) [facility] Method Time Signature Neutrophils % 74.2 % [facility] Neutr Abs (ANC) 9.89 (H) 1.70 - [facility] 6.10 [facility] x10(3)/[facility] L LABORATORY Lymphocytes % 13.0 % [facility] Lymphocytes Abs 1.7 0.9 - 3.2 [facility] x10(3)/[facility] LABORATORY Monocytes % 9.2 % [facility] Monocyte Abs 1.2 (H) 0.3 - 0.9 [facility] x10(3)/[facility] LABORATORY Eosinophils % 1.9 % [facility] Eosinophils Abs 0.2 0.0 - 0.4 [facility] x10(3)/[facility] LABORATORY Basophils % 0.7 % [facility] Basophils Abs 0.1 0.0 - 0.1 [facility] x10(3)/[facility] LABORATORY Immature Gran % 1.00 % [facility] Comment: Immature granulocytes(IG's)percentage an d absolute count will include metamyelocytes, myelocytes, and promyelo cytes. Blood smears from CBCs yielding IG's will be scanned manually for concor dance. If this scan disagrees with the automated IG or if promyelocytes are not ed, a manual differential will be performed. Shannan Gran Abs 0.13 (H) 0.00 - 0.04 x10(3)/[facility] LABORATORY Specimen Anatomical Collection Method Collection Time Receive d Time (Source) Location / / Volume Laterality Blood 11/23/2021 4:28 PM 4:55 EDT PM EDT Resulting Agency Comment Spec In Lab Harley Raymond MD HEMATOLOGY ORDERABLES Performing Organization Address City/State/[place] [address] (ABNORMAL) Hemogram (11/23/2021 4:28 PM EDT) Analysis Performed At Patho logist Time Signature WBC 13.3 (H) 4.0 - 9.5 [facility] x10(3)/[facility] LABORATORY RBC 4.79 4.58 - [facility] 5.54 [facility] x10(6)/[facility] LABORATORY Hemoglobin 15.2 13.7 - [facility] 16.5 g/dL [facility] Hematocrit 45.6 40.5 - [facility] 48.5 % [facility] MCV 95.2 (H) 82.9 - [facility] 93.1 [facility] LABORATORY MCH 31.7 27.5 - [place] 32.1 pg [facility] MCHC 33.3 32.0 - [place] 35.7 g/dL [facility] Platelets 389 (H) 145 - 357 [facility] LABORATORY RDWSD 48.6 (H) 36.0 - [place] 45.0 [facility] LABORATORY RDWCV 14.0 (H) 11.4 - [facility] KIRTI 13.8 % [facility] MPV 9.2 7.6 - 12.9 [place] [facility] LABORATORY nRBC % Auto 0.0 % [facility] nRBC Abs Auto 0.000 0.000 - [place] 0.000 [facility] x10(3)/[facility] LABORATORY Specimen Anatomical Collection Method Collection Time Receive d Time (Source) Location / / Volume Laterality Blood 11/23/2021 4:28 PM 2 4:55 EDT PM EDT Resulting Agency Comment Spec In Lab Harley Raymond MD HEMATOLOGY ORDERABLES Performing Organization Address City/State/[place] [address] Phosphorus (11/23/2021 4:28 PM EDT) P athologist Signature Phosphorus 4.0 2.5 - 4.5 [facility] KIRTI mg/dL [facility] Specimen Anatomical Collection Method Collection Time Receive d Time (Source) Location / / Volume Laterality Blood 11/23/2021 4:28 PM 2 4:55 EDT PM EDT Resulting Agency Comment Spec In Lab Jennifer Martinez MD CHEMISTRY ORDERABLES Performing Organization Address City/State/[place] [address] (ABNORMAL) Basic Metabolic Panel (non-fasting) (11/23/2021 4:28 PM EDT) P athologist Signature Glucose Lvl 96 65 - 199 [facility] mg/dL [facility] Comment: Diabetes: >=200 mg/dL plus symp toms BUN 6 (L) 10 - 20 mg/dL [facility]ORY Creatinine 1.28 0.80 - 1.50 mg/dL [facility] Sodium 144 135 - 145 mmol/L [facility] Potassium 3.2 (L) 3.5 - 5.0 mmol/L [facility] Comment: Please note: ??Patients with WBC >100,00 0 may have falsely elevated Potassium levels. ??For accurate Potassium quantif ication in these patients send serum separator tube (gold top) for subsequent determinations. ??Contact the Clinical Chemistry Laboratory if there are any qu estions. Chloride 105 98 - 107 mmol/L [facility] CO2 23 22 - 31 mmol/L [facility] Anion Gap 16 (H) 5 - 15 mmol/L [facility]ORY Calcium 9.2 8.5 - 10.5 mg/dL [facility] Estimated GFR 61 >=60 mL/min/1.73 m?? [facility] Comment: This patient's estimated GFR was calcula lul using the 2020 CKD-EPI equation. The estimated GFR can vary from the kaveh ured GFR by up to 30% in the absence of rapidly changing kidney function. Assess ment of the estimated GFR is not appropriate when creatinine concentratio ns are rapidly changing. For clinical situations in which a more precise estim ate of GFR is necessary, consider alternative methods of GFR estimation nunez ch as a 24-hour urine creatinine clearance. Assignment of CKD stage 1-5 for patients with an eGFR near the transition point between stages may be based on clinical assessment of muscle mass and symptoms in addition to eGFR. Specimen Anatomical Collection Method Collection Time Receive d Time (Source) Location / / Volume Laterality Blood 11/23/2021 4:28 PM 2 4:57 EDT PM EDT Resulting Agency Comment Spec In Lab Afshin Rogers MD CHEMISTRY ORDERABLES Performing Organization Address City/State/[place] [address] Anaerobic Culture (11/23/2021 1:06 PM EDT) Patholo gist Method Time Signature Anaerobic No anaerobic [facility] Culture organisms [facility] LABORATORY Specimen Anatomical Collection Method Collection Time Receive d Time (Source) Location / / Volume Laterality Bone TOE STRUCTURE / 11/23/2021 1:06 PM 2021 2:36 Unknown EDT PM EDT Comment: First right metatarsal resectio n #3 Resulting Agency Comment Spec In Lab Jarad Flores MD MICROBIOLOGY - GENERAL ORDER SILAS Performing Organization Address City/[facility]/[place] [address] (ABNORMAL) Bone Culture (11/23/2021 1:06 PM EDT) Component Value Ref Test Analysis Performed At [facility] gist Range Method Time Signature Bone Culture Rare Coagulase negative Staphylococcus species [place] Susceptibilities previously reported [facility] Gram Stain No Neutrophils seen. [place] No microorganisms seen. [facility] () [facility] Organism Coagulase negative [place] Staphylococcus [place] species (A) [facility] Specimen Anatomical Collection Method Collection Time Receive d Time (Source) Location / / Volume Laterality Bone TOE STRUCTURE / 11/23/2021 1:06 PM 2021 2:36 Unknown EDT PM EDT Comment: First right metatarsal resectio n #3 Resulting Agency Comment Spec In Lab Jarad Flores MD MICROBIOLOGY - GENERAL ORDER SILAS Performing Organization Address City/[facility]/[place] [address] Anaerobic Culture (11/23/2021 1:06 PM EDT) [facility] gist Method Time Signature Anaerobic No anaerobic [place] Culture organisms [facility] LABORATORY Specimen Anatomical Collection Method Collection Time Receive d Time (Source) Location / / Volume Laterality Bone TOE STRUCTURE / 11/23/2021 1:06 PM 2021 2:39 Unknown EDT PM EDT Comment: First right metatarsal resectio n #2 Resulting Agency Comment Spec In Lab Jarad Flores MD MICROBIOLOGY - GENERAL ORDER SILAS Performing Organization Address City/[facility]/[place] [address] (ABNORMAL) Bone Culture (11/23/2021 1:06 PM EDT) Component Value Ref Test Analysis Performed At [employer] Range Method Time Signature Bone Culture Rare Coagulase negative Staphylococcus species [place] Susceptibilities previously reported [facility] Gram Stain No Neutrophils seen. [place] No microorganisms seen. [facility] (A) [facility] Organism Coagulase negative [place] Staphylococcus [place] species (A) [facility] Specimen Anatomical Collection Method Collection Time Receive d Time (Source) Location / / Volume Laterality Bone TOE STRUCTURE / 11/23/2021 1:06 PM 2021 2:38 Unknown EDT PM EDT Comment: First right metatarsal resectio n #2 Resulting Agency Comment Spec In Lab Jarad Flores MD MICROBIOLOGY - GENERAL ORDER SILSA Performing Organization Address City/[facility]/ZIP Code Phon e Number [address] Anaerobic Culture (11/23/2021 1:06 PM EDT) [facility] QPD Method Time Signature Anaerobic No anaerobic [place] Culture organisms [facility] LABORATORY Specimen Anatomical Collection Method Collection Time Receive d Time (Source) Location / / Volume Laterality Bone TOE STRUCTURE / 11/23/2021 1:06 PM 2021 2:37 Unknown EDT PM EDT Comment: First right metatarsal resectio n #1 Resulting Agency Comment Spec In Lab Jarad Flores MD MICROBIOLOGY - GENERAL ORDER SILAS Performing Organization Address City/[facility]/[place] [address] (ABNORMAL) Bone Culture (11/23/2021 1:06 PM EDT) Component Value Ref Test Analysis Performed At [facility] QPD Range Method Time Signature Bone Culture Few Coagulase negative Staphylococcus species : two mo rphologies [place] Rare Corynebacterium species [facility] () [facility] Gram Stain No Neutrophils seen. [place] No microorganisms seen. [facility] (A) [facility] Organism Coagulase negative [place] Staphylococcus [place] species (A) [facility] Organism Coagulase negative [place] Staphylococcus [place] species (A) [facility] Organism Corynebacterium [place] species (A) [facility] Specimen Anatomical Collection Method Collection Time Receive d Time (Source) Location / / Volume Laterality Bone TOE STRUCTURE / 11/23/2021 1:06 PM 2021 2:37 Unknown EDT PM EDT Comment: First right metatarsal resectio n #1 Resulting Agency Comment Spec In Lab Organism Antibiotic Method Susceptibility Coagulase negative staphylococcus .Isolate MICROSCAN METH OD #1 species Coagulase negative staphylococcus Ciprofloxacin [facility] METH OD Sensitive species Coagulase negative staphylococcus Clindamycin [facility] METH OD Resistant species Coagulase negative staphylococcus Erythromycin [facility] METH OD Resistant species Coagulase negative staphylococcus Gentamicin [facility] METH OD Sensitive species Comment: Gentamicin is not a ppropriate for Dewey-therapy. Coagulase negative staphylococcus Levofloxacin [facility] METH OD Sensitive species Coagulase negative staphylococcus Oxacillin [facility] METH OD Resistant species Coagulase negative staphylococcus Tetracycline [facility] METH OD Resistant species Coagulase negative staphylococcus Trimethoprim/Sulfa MICROSCAN M ETHOD Sensitive species Coagulase negative staphylococcus Vancomycin MICROSCAN METH OD Sensitive species Coagulase negative staphylococcus .Isolate MICROSCAN METH OD #2 species Coagulase negative staphylococcus Ciprofloxacin MICROSCAN METH OD Sensitive species Coagulase negative staphylococcus Clindamycin MICROSCAN METH OD Resistant species Coagulase negative staphylococcus Erythromycin MICROSCAN METH OD Resistant species Coagulase negative staphylococcus Gentamicin MICROS[facility] METH OD Sensitive species Comment: Gentamicin is not a ppropriate for Dewey-therapy. Coagulase negative Levofloxacin MICROSCAN METHOD Sensitive staphylococcus species Coagulase negative Oxacillin MICROSCAN METHOD Resistant staphylococcus species Coagulase negative Tetracycline MICROSCAN METHOD Sensitive staphylococcus species Coagulase negative Trimethoprim/Sulfa MICROSCAN METHOD Resistant staphylococcus species Coagulase negative Vancomycin MICROSCAN METHOD Sensitive staphylococcus species Corynebacterium species Ciprofloxacin MINIMUM INHIBITORY >=32: Resistant CONCENTRATION Corynebacterium species Clindamycin MINIMUM INHIBITORY >=256 : Resistant CONCENTRATION Corynebacterium species Penicillin MINIMUM INHIBITORY >=32: Resistant CONCENTRATION Corynebacterium species Vancomycin MINIMUM INHIBITORY 1: Se nsitive CONCENTRATION Jarad Flores MD MICROBIOLOGY - GENERAL ORDER SILAS Performing Organization Address City/State/[place] [address] Phosphorus (11/22/2021 6:07 PM EDT) athologist Signature Phosphorus 2.9 2.5 - 4.5 [facility] mg/dL [facility] LABORATORY Specimen Anatomical Collection Method Collection Time Receive d Time (Source) Location / / Volume Laterality Blood 11/22/2021 6:07 PM 2 6:14 EDT PM EDT Resulting Agency Comment Spec In Lab Afshin Rogers MD CHEMISTRY ORDERABLES Performing Organization Address City/[facility]/[place] [address] (ABNORMAL) Vancomycin, trough (11/22/2021 8:29 AM EDT) P athologist Signature Vanc Trough 21.4 mg/L [facility] (Critical) [facility] Comment: Called by: SS, Read back by: Lila Piña mm, Date/Time:11/22/21 09:45. Therapeutic range for complicated infect ions such as bacteremia, endocarditis, osteomyelitis, meningitis, and hospital- acquired pneumonia caused by S. aureus: 15-20 mg/L Therapeutic range for other indications: 10-15 mg/L Toxic: >20 mg/L Reference: Vancomycin Therapeutic Monitoring: Shanti muniz and Recommendations from the ASHP, IDSA and SIDP Task Force. ??Am J Health- Syst Pharm. 2009; 66:82-98 Specimen Anatomical Collection Method Collection Time Receive d Time (Source) Location / / Volume Laterality Blood 11/22/2021 8:29 AM 2 9:09 EDT AM EDT Resulting Agency Comment Spec In Lab Valentina Montoya MD CHEMISTRY ORDERABLES Performing Organization Address City/[facility]/[place] [address] Phosphorus (11/22/2021 8:29 AM EDT) P athologist Signature Phosphorus 3.6 2.5 - 4.5 [facility] mg/dL [facility] Specimen Anatomical Collection Method Collection Time Receive d Time (Source) Location / / Volume Laterality Blood 11/22/2021 8:29 AM 2 9:09 EDT AM EDT Resulting Agency Comment Spec In Lab Afshin Rogers MD CHEMISTRY ORDERABLES Performing Organization Address City/[facility]/[place] [address] Phosphorus (11/21/2021 6:46 PM EDT) athologist Signature Phosphorus 2.9 2.5 - 4.5 [facility] mg/dL [facility] Specimen Anatomical Collection Method Collection Time Receive d Time (Source) Location / / Volume Laterality Blood 11/21/2021 6:46 PM 6:53 EDT PM EDT Resulting Agency Comment Spec In Lab Afshin Rogers MD CHEMISTRY ORDERABLES Performing Organization Address City/State/[place] [address] (ABNORMAL) Differential, Automated (11/21/2021 8:38 AM EDT) athologist Signature Neutrophils % 70.4 % [facility] LABORATORY Neutr Abs (ANC) 5.79 1.70 - [facility] 6.10 [facility] x10(3)/[facility] LABORATORY Lymphocytes % 12.6 % [facility] LABORATORY Lymphocytes Abs 1.0 0.9 - 3.2 [facility] x10(3)/[facility] LABORATORY Monocytes % 11.2 % [facility]ORY Monocyte Abs 0.9 0.3 - 0.9 [facility] x10(3)/[facility] LABORATORY Eosinophils % 4.6 % [facility] Eosinophils Abs 0.4 0.0 - 0.4 [facility] x10(3)/[facility] LABORATORY Basophils % 0.6 % [facility]ORY Basophils Abs 0.0 0.0 - 0.1 [facility] x10(3)/[facility] LABORATORY Immature Gran % 0.60 % [facility] Comment: Immature granulocytes(IG's)percentage an d absolute count will include metamyelocytes, myelocytes, and promyelo cytes. Blood smears from CBCs yielding IG's will be scanned manually for concor dance. If this scan disagrees with the automated IG or if promyelocytes are not ed, a manual differential will be performed. Shannan Gran Abs 0.05 (H) 0.00 - 0.04 x10(3)/[facility] LABORATORY Specimen Anatomical Collection Method Collection Time Receive d Time (Source) Location / / Volume Laterality Blood 11/21/2021 8:38 AM 2 8:51 EDT AM EDT Resulting Agency Comment Spec In Lab Valentina Montoya MD HEMATOLOGY ORDERABLES Performing Organization Address City/State/[place] [address] (ABNORMAL) Hemogram (11/21/2021 8:38 AM EDT) Analysis Performed At Patho logist Time Signature WBC 8.2 4.0 - 9.5 [facility] x10(3)/[facility] LABORATORY RBC 4.13 (L) 4.58 - [facility] 5.54 [facility] x10(6)/[facility] LABORATORY Hemoglobin 13.2 (L) 13.7 - [facility] g/dL [facility] Hematocrit 38.9 (L) 40.5 - [facility] 48.5 % [facility] MCV 94.2 (H) 82.9 - [facility] 93.1 [facility] LABORATORY MCH 32.0 27.5 - [facility] 32.1 pg [facility]ORY MCHC 33.9 32.0 - [facility] 35.7 g/dL [facility] Platelets 285 145 - 357 [facility] x10(3)/[facility] LABORATORY RDWSD 48.8 (H) 36.0 - [facility] 45.0 [facility] LABORATORY RDWCV 14.2 (H) 11.4 - [facility] 13.8 % [facility] LABORATORY MPV 8.9 7.6 - 12.9 [facility] LABORATORY nRBC % Auto 0.0 % [facility] LABORATORY nRBC Abs Auto 0.000 0.000 - [facility] 0.000 [facility] x10(3)/[facility] LABORATORY Specimen Anatomical Collection Method Collection Time Receive d Time (Source) Location / / Volume Laterality Blood 11/21/2021 8:38 AM 2 8:51 EDT AM EDT Resulting Agency Comment Spec In Lab Valentina Montoya MD HEMATOLOGY ORDERABLES Performing Organization Address City/State/[place] [address] Hepatic Function Panel (11/21/2021 8:38 AM EDT) athologist Signature Total Protein 6.5 6.1 - 8.0 [facility] g/dL [facility] Albumin 3.2 3.2 - 5.2 [facility] g/dL [facility] AST 13 0 - 39 [facility] unit/L [facility] ALT 10 0 - 55 [facility] unit/L [facility] Alk Phos 76 40 - 130 [facility] unit/L [facility] Total 0.4 0.2 - 1.3 [facility] Bilirubin mg/dL [facility] Bili, Direct 0.1 0.0 - 0.3 [facility] mg/dL [facility] LABOR[facility]ORY Specimen Anatomical Collection Method Collection Time Receive d Time (Source) Location / / Volume Laterality Blood 11/21/2021 8:38 AM 2 8:52 EDT AM EDT Resulting Agency Comment Spec In Lab Sommer Bains APRN CHEMISTRY ORDERABLES Performing Organization Address City/State/[place] [address] Phosphorus (11/21/2021 8:38 AM EDT) athologist Signature Phosphorus 3.5 2.5 - 4.5 [facility] mg/dL [facility]OR[facility]ORY Specimen Anatomical Collection Method Collection Time Receive d Time (Source) Location / / Volume Laterality Blood 11/21/2021 8:38 AM 2 8:52 EDT AM EDT Resulting Agency Comment Spec In Lab Afshin Rogers MD CHEMISTRY ORDERABLES Performing Organization Address City/State/ZIP Code Phon e Number [address] (ABNORMAL) Basic Metabolic Panel (non-fasting) (11/21/2021 8:38 AM EDT) athologist Signature Glucose Lvl 89 65 - 199 [place] mg/dL [facility] Comment: Diabetes: >=200 mg/dL plus symp toms BUN 6 (L) 10 - 20 mg/dL [facility] LABORATORY Creatinine 0.93 0.80 - 1.50 mg/dL [facility] LABORATORY Sodium 141 135 - 145 mmol/L [facility] LABORATORY Potassium 3.3 (L) 3.5 - 5.0 mmol/L [facility] LABORATORY Comment: Please note: ??Patients with WBC >100,00 0 may have falsely elevated Potassium levels. ??For accurate Potassium quantif ication in these patients send serum separator tube (gold top) for subsequent determinations. ??Contact the Clinical Chemistry Laboratory if there are any qu estions. Chloride 104 98 - 107 mmol/L [facility] LABORATORY CO2 25 22 - 31 mmol/L [facility] Anion Gap 12 5 - 15 mmol/L [facility] LABORATORY Calcium 8.8 8.5 - 10.5 mg/dL [facility] LABORATORY Estimated GFR 89 >=60 mL/min/1.73 m?? [facility] Comment: This patient's estimated GFR was calcula lul using the 2020 CKD-EPI equation. The estimated GFR can vary from the kaveh ured GFR by up to 30% in the absence of rapidly changing kidney function. Assess ment of the estimated GFR is not appropriate when creatinine concentratio ns are rapidly changing. For clinical situations in which a more precise estim ate of GFR is necessary, consider alternative methods of GFR estimation nunez ch as a 24-hour urine creatinine clearance. Assignment of CKD stage 1-5 for patients with an eGFR near the transition point between stages may be based on clinical assessment of muscle mass and symptoms in addition to eGFR. Specimen Anatomical Collection Method Collection Time Receive d Time (Source) Location / / Volume Laterality Blood 11/21/2021 8:38 AM 8:52 EDT AM EDT Resulting Agency Comment Spec In Lab Valentina Montoya MD CHEMISTRY ORDERABLES Performing Organization Address City/State/[place] [address] Phosphorus (11/20/2021 6:22 PM EDT) P athologist Signature Phosphorus 2.8 2.5 - 4.5 [facility] mg/dL [facility] LABOR[facility]ORY Specimen Anatomical Collection Method Collection Time Receive d Time (Source) Location / / Volume Laterality Blood 11/20/2021 6:22 PM 6:31 EDT PM EDT Resulting Agency Comment Spec In Lab Afshin Rogers MD CHEMISTRY ORDERABLES Performing Organization Address City/[facility]/[place] [address] EKG 12 Lead (11/20/2021 12:47 PM EDT) Component Value Ref Range Test Analysis Performed Pathologis t Method Time At Signature Ventricular rate 98 BPM MUSE SYSTEM Atrial Rate 98 BPM MUSE SYSTEM P-R Interval 160 ms MUSE SYSTEM QRS Duration 82 ms MUSE SYSTEM Q-T Interval 406 ms MUSE SYSTEM QTC Calculated 518 ms MUSE SYSTEM (Bezet) Calculated P [place] 60 degrees MUSE SYSTEM Calculated R [place] 7 degrees MUSE SYSTEM Calculated T [place] 24 degrees MUSE SYSTEM INTERPRETATION Normal sinus rhythm MUSE SYSTEM Anteroseptal infarct , age undetermined Prolonged QT Abnormal ECG When compared with ECG of 09-MAR-2020 18:45, Vent. rate has increased BY ??35 BPM Anteroseptal infarct is now Present Non-specific change in ST segment in Inferior leads QT has lengthened Confirmed by MD Jacob, Cristian ([id number]) on 11/20/2021 2:01:24 PM Specimen Anatomical Collection Method Collection Time Receive d Time (Source) Location / / Volume Laterality 11/20/2021 12:47 11/20/2021 2:01 PM EDT PM EDT Sommer Bains APRN ECG ORDERABLES Performing Organization Address City/State/ZIP Code Phon e Number MUSE SYSTEM Vancomycin, trough (11/20/2021 8:48 AM EDT) P athologist Signature Vanc Trough 18.8 mg/L [facility] LABORATORY Comment: Therapeutic range for complicated infect ions such as bacteremia, endocarditis, osteomyelitis, meningitis, and hospital- acquired pneumonia caused by S. aureus: 15-20 mg/L Therapeutic range for other indications: 10-15 mg/L Toxic: >20 mg/L Reference: Vancomycin Therapeutic Monitoring: Shanti muniz and Recommendations from the ASHP, IDSA and SIDP Task Force. ??Am J Health- Syst Pharm. 2009; 66:82-98 Specimen Anatomical Collection Method Collection Time Receive d Time (Source) Location / / Volume Laterality Blood 11/20/2021 8:48 AM 2 9:15 EDT AM EDT Resulting Agency Comment Spec In Lab Valentina Montoya MD CHEMISTRY ORDERABLES Performing Organization Address City/[facility]/[place] [address] Phosphorus (11/20/2021 8:48 AM EDT) P athologist Signature Phosphorus 2.7 2.5 - 4.5 [facility] mg/dL [facility] LABORATORY Specimen Anatomical Collection Method Collection Time Receive d Time (Source) Location / / Volume Laterality Blood 11/20/2021 8:48 AM 2 9:15 EDT AM EDT Resulting Agency Comment Spec In Lab Afshin Rogers MD CHEMISTRY ORDERABLES Performing Organization Address City/[facility]/ZIP Code Phon e Number [address] (ABNORMAL) Differential, Automated (11/20/2021 4:59 AM EDT) Patholo gist Method Time Signature Neutrophils % 78.8 % [facility] LABORATORY Neutr Abs (ANC) 8.46 (H) 1.70 - [facility] 6.10 [facility] x10(3)/[facility] LABORATORY Lymphocytes % 8.6 % [facility] LABORATORY Lymphocytes Abs 0.9 0.9 - 3.2 [facility] x10(3)/[facility] LABORATORY Monocytes % 7.6 % [facility] LABORATORY Monocyte Abs 0.8 0.3 - 0.9 [facility] x10(3)/[facility] LABORATORY Eosinophils % 3.9 % [facility] LABORATORY Eosinophils Abs 0.4 0.0 - 0.4 [facility] x10(3)/[facility] LABORATORY Basophils % 0.6 % [facility] LABORATORY Basophils Abs 0.1 0.0 - 0.1 [facility] x10(3)/[facility] LABORATORY Immature Gran % 0.50 % [facility]ATORY Comment: Immature granulocytes(IG's)percentage an d absolute count will include metamyelocytes, myelocytes, and promyelo cytes. Blood smears from CBCs yielding IG's will be scanned manually for concor dance. If this scan disagrees with the automated IG or if promyelocytes are not ed, a manual differential will be performed. Shannan Gran Abs 0.05 (H) 0.00 - 0.04 x10(3)/[facility] LABORATORY Specimen Anatomical Collection Method Collection Time Receive d Time (Source) Location / / Volume Laterality Blood 11/20/2021 4:59 AM 5:23 EDT AM EDT Resulting Agency Comment Spec In Lab Valentina Montoya MD HEMATOLOGY ORDERABLES Performing Organization Address City/State/[place] [address] (ABNORMAL) Hemogram (11/20/2021 4:59 AM EDT) Analysis Performed At Patho logist Time Signature WBC 10.7 (H) 4.0 - 9.5 [facility] x10(3)/[facility] LABORATORY RBC 4.10 (L) 4.58 - [facility] 5.54 [facility] x10(6)/[facility] LABORATORY Hemoglobin 13.5 (L) 13.7 - [facility] g/dL [facility] LABORATORY Hematocrit 40.6 40.5 - [facility] 48.5 % [facility] LABORATORY MCV 99.0 (H) 82.9 - [facility] 93.1 [facility] LABORATORY MCH 32.9 (H) 27.5 - [facility] 32.1 pg [facility] LABORATORY MCHC 33.3 32.0 - [facility] 35.7 g/dL [facility] LABORATORY Platelets 216 145 - 357 [facility] x10(3)/[facility] RDWSD 50.1 (H) 36.0 - [facility] 45.0 [facility] LABORATORY RDWCV 13.8 11.4 - [facility] 13.8 % [facility] LABORATORY MPV 10.2 7.6 - 12.9 [facility] LABORATORY nRBC % Auto 0.0 % [facility] LABORATORY nRBC Abs Auto 0.000 0.000 - [facility] 0.000 [facility] x10(3)/[facility] LABORATORY Specimen Anatomical Collection Method Collection Time Receive d Time (Source) Location / / Volume Laterality Blood 11/20/2021 4:59 AM 5:23 EDT AM EDT Resulting Agency Comment Spec In Lab Valentina Montoya MD HEMATOLOGY ORDERABLES Performing Organization Address City/State/[place] [address] (ABNORMAL) Basic Metabolic Panel (non-fasting) (11/20/2021 4:59 AM EDT) P athologist Signature Glucose Lvl 69 65 - 199 [facility] mg/dL [facility] Comment: Diabetes: >=200 mg/dL plus symp toms BUN 8 (L) 10 - 20 mg/dL [facility] LABORATORY Creatinine 0.80 0.80 - 1.50 mg/dL [facility] LABORATORY Sodium 134 (L) 135 - 145 mmol/L [facility] LABORATORY Potassium Not Perf 3.5 - 5.0 [facility] LABORATORY Comment: Unable to quantitate due to sample hemol ysis. ??Sample redraw suggested. Called by: sima, Read back by: Jenni mondragon ate/Time:11/20/21 06:14. Please note: ??Patients with WBC >100,00 0 may have falsely elevated Potassium levels. ??For accurate Potassium quantif ication in these patients send serum separator tube (gold top) for subsequent determinations. ??Contact the Clinical Chemistry Laboratory if there are any qu estions. Chloride 96 (L) 98 - 107 mmol/L [facility] LABORATORY CO2 27 22 - 31 mmol/L [facility]ORY Anion Gap 11 5 - 15 mmol/L [facility] LABORATORY Calcium 9.1 8.5 - 10.5 mg/dL [facility] LABORATORY Estimated GFR 96 >=60 mL/min/1.73 m?? [facility] Comment: This patient's estimated GFR was calcula lul using the 2020 CKD-EPI equation. The estimated GFR can vary from the kaveh ured GFR by up to 30% in the absence of rapidly changing kidney function. Assess ment of the estimated GFR is not appropriate when creatinine concentratio ns are rapidly changing. For clinical situations in which a more precise estim ate of GFR is necessary, consider alternative methods of GFR estimation nunez ch as a 24-hour urine creatinine clearance. Assignment of CKD stage 1-5 for patients with an eGFR near the transition point between stages may be based on clinical assessment of muscle mass and symptoms in addition to eGFR. Specimen Anatomical Collection Method Collection Time Receive d Time (Source) Location / / Volume Laterality Blood 11/20/2021 4:59 AM 2 5:23 EDT AM EDT Resulting Agency Comment Spec In Lab Valentina Montoya MD CHEMISTRY ORDERABLES Performing Organization Address City/State/ZIP Code Phon e Number [place] [id number] (ABNORMAL) Differential, Automated (11/19/2021 5:56 AM EDT) [facility] gist Method Time Signature Neutrophils % 78.0 % [facility] LABORATORY Neutr Abs (ANC) 10.20 (H) 1.70 - [facility] 6.10 [facility] x10(3)/[facility] LABORATORY Lymphocytes % 10.6 % [facility] LABORATORY Lymphocytes Abs 1.4 0.9 - 3.2 [facility] x10(3)/[facility] LABORATORY Monocytes % 8.0 % [facility] LABORATORY Monocyte Abs 1.0 (H) 0.3 - 0.9 [facility] x10(3)/[facility] LABORATORY Eosinophils % 2.4 % [facility] LABORATORY Eosinophils Abs 0.3 0.0 - 0.4 [facility] x10(3)/[facility] LABORATORY Basophils % 0.5 % [facility] LABORATORY Basophils Abs 0.1 0.0 - 0.1 [facility] x10(3)/[facility] LABORATORY Immature Gran % 0.50 % [facility] LABORATORY Comment: Immature granulocytes(IG's)percentage an d absolute count will include metamyelocytes, myelocytes, and promyelo cytes. Blood smears from CBCs yielding IG's will be scanned manually for concor dantarah. If this scan disagrees with the automated IG or if promyelocytes are not ed, a manual differential will be performed. Shannan Gran Abs 0.06 (H) 0.00 - 0.04 x10(3)/[facility] LABORATORY Specimen Anatomical Collection Method Collection Time Receive d Time (Source) Location / / Volume Laterality Blood 11/19/2021 5:56 AM 6:16 EDT AM EDT Resulting Agency Comment Spec In Lab Valentina Montoya MD HEMATOLOGY ORDERABLES Performing Organization Address City/State/[place] [address] (ABNORMAL) Hemogram (11/19/2021 5:56 AM EDT) Analysis Performed At Patho logist Time Signature WBC 13.1 (H) 4.0 - 9.5 [facility] x10(3)/[facility] LABORATORY RBC 3.98 (L) 4.58 - [facility] 5.54 [facility] x10(6)/[facility] LABORATORY Hemoglobin 12.7 (L) 13.7 - [facility] 16.5 g/dL [facility] LABORATORY Hematocrit 39.4 (L) 40.5 - [facility] 48.5 % [facility] LABORATORY MCV 99.0 (H) 82.9 - [facility] 93.1 [facility] LABORATORY MCH 31.9 27.5 - [facility] 32.1 pg [facility] MCHC 32.2 32.0 - [facility] 35.7 g/dL [facility] LABORATORY Platelets 217 145 - 357 [facility] x10(3)/[facility] RDWSD 51.4 (H) 36.0 - [facility] 45.0 [facility] RDWCV 14.0 (H) 11.4 - [facility] 13.8 % [facility] LABORATORY MPV 9.4 7.6 - 12.9 [facility] LABORATORY nRBC % Auto 0.0 % [facility] LABORATORY nRBC Abs Auto 0.000 0.000 - [facility] 0.000 [facility] x10(3)/[facility] LABORATORY Specimen Anatomical Collection Method Collection Time Receive d Time (Source) Location / / Volume Laterality Blood 11/19/2021 5:56 AM 2 6:16 EDT AM EDT Resulting Agency Comment Spec In Lab Valentina Montoya MD HEMATOLOGY ORDERABLES Performing Organization Address City/[facility]/ZIP Code Phon e Number [address] (ABNORMAL) Sedimentation rate (11/19/2021 5:56 AM EDT) P athologist Signature Sed Rate 104 (H) 2 - 37 [facility] mm/hr [facility] LABORATORY Comment: Effective April 21, 2019 new capillar y photometric technology has resulted in a change in reference ranges. It is r ecommended that each ESR result be reviewed with its own age appropriate re ference range. Specimen Anatomical Collection Method Collection Time Receive d Time (Source) Location / / Volume Laterality Blood 11/19/2021 5:56 AM 2 6:16 EDT AM EDT Resulting Agency Comment Spec In Lab Valentina Montoya MD HEMATOLOGY ORDERABLES Performing Organization Address City/[facility]/[place] [address] (ABNORMAL) Basic Metabolic Panel (non-fasting) (11/19/2021 5:56 AM EDT) P athologist Signature Glucose Lvl 87 65 - 199 [facility] mg/dL [facility] LABOR[facility]ORY Comment: Diabetes: >=200 mg/dL plus symp toms BUN 12 10 - 20 mg/dL [facility] LABORATORY Creatinine 0.98 0.80 - 1.50 mg/dL [facility] LABORATORY Sodium 139 135 - 145 mmol/L [facility] LABORATORY Potassium 3.5 3.5 - 5.0 mmol/L [facility] LABORATORY Comment: Please note: ??Patients with WBC >100,00 0 may have falsely elevated Potassium levels. ??For accurate Potassium quantif ication in these patients send serum separator tube (gold top) for subsequent determinations. ??Contact the Clinical Chemistry Laboratory if there are any qu estions. Chloride 98 98 - 107 mmol/L [facility] CO2 34 (H) 22 - 31 mmol/L [facility] Anion Gap 7 5 - 15 mmol/L [facility] Calcium 9.0 8.5 - 10.5 mg/dL [facility] Estimated GFR 84 >=60 mL/min/1.73 m?? [facility] Comment: This patient's estimated GFR was calcula lul using the 2020 CKD-EPI equation. The estimated GFR can vary from the kaveh ured GFR by up to 30% in the absence of rapidly changing kidney function. Assess ment of the estimated GFR is not appropriate when creatinine concentratio ns are rapidly changing. For clinical situations in which a more precise estim ate of GFR is necessary, consider alternative methods of GFR estimation nunez ch as a 24-hour urine creatinine clearance. Assignment of CKD stage 1-5 for patients with an eGFR near the transition point between stages may be based on clinical assessment of muscle mass and symptoms in addition to eGFR. Specimen Anatomical Collection Method Collection Time Receive d Time (Source) Location / / Volume Laterality Blood 11/19/2021 5:56 AM 2 6:16 EDT AM EDT Resulting Agency Comment Spec In Lab Valentina Montoya MD CHEMISTRY ORDERABLES Performing Organization Address City/State/[place] [address] Surgical Pathology Report (11/18/2021 8:56 PM EDT) Component Value Ref Test Analysis Performed At [facility] gist Range Method Time Signature Surgical [id number] ? Location: 1WST; 0110; B [facility] Report The signing pathologist has (i) examined the relevant preparation(s) for the [facility] specimen(s) and (ii) rendered or confirmed the diagnosis(es) . HOSPITAL LABORATORY . ?Surgic al Pathology DIAGNOSIS A - ??Right great toe, amputation: - Necrotic skin and soft tis am[place] with acute suppurative inflammation and bacterial forms. - Monosodium urate crystal d eposition (gout) involving synovium, tendo-ligamentous tissue, articular cartilage, and bone. - Multifocal bone erosion with focal acute osteomyelitis. - Margins appear viable and free of significant inflammation . Electronically signed by: ?Cindy Eiwng MD Verified: ??11/28/2021 12:13 ??Pathologist Performed at: ??-[facility] Dept. of Pathology, [place], [place] SPECIMEN(S) SUBMITTED A - ??Right great toe, amputation CLINICAL INFORMATION Right great toe necrotic infection SPECIMEN PROCESSING A - Labeled/Fixative: Right great toe, fresh. Quantity/Size: ??Single, 7.5 x 4.2 x 3.9 cm Tissue Description: Amputated digit with 1.7 cm of metatarsa l head. Lesion: 5.5 x 4.0 cm area of green-black discoloration and skin slippage involving the medial surface. Nail: Thick, opaque. Skin: Areas of crusting and slippage. Bone: ??Chalky white deposit s on the articular surfaces. Patchy red-green, dusky discoloration of the proximal phalanx. Sections/Processing: Blocks submitted for decalcification: A1-A5. Touch prep(s) are prepared. [employer] sections in 6 cassettes as follows: ?A1-A4: ??Full length l ongitudinal section of bone, quadrisected and submitted from ? distal to proximal ?A5: ??Longitudinal section of metatarsal head ?A6: ??Section of skin and soft tissue necrosis ??ajw Specimen (Source) Anatomical Collection Method Collection Time Re ceived Time Location / / Volume Laterality 11/18/2021 8:56 PM EDT Sammy Baker MD PATHOLOGY/CYTOLOGY ORDERABLE S Performing Organization Address City/State/ZIP Code Phon e Number [place] [id number] Specimen to Pathology (11/18/2021 8:56 PM EDT) Specimen Anatomical Collection Method Collection Time Receive d Time (Source) Location / / Volume Laterality AP Specimen 11/18/2021 8:56 PM 8:[address] ED[address] [facility] - 11/18/2021 8:56 PM EDT Specimen requisition ordered. ??Separate Pathology report to follow Valentina Montoya MD PATHOLOGY/CYTOLOGY ORDERABLE S Performing Organization Address City/[facility]/[place] [address] (ABNORMAL) Anaerobic Culture (11/18/2021 8:52 PM EDT) [facility] Method Time Signature Anaerobic Rare SIENNA Culture Bacteroides [place] species (A) [facility] Organism Bacteroides SIENNA species (A) [facility] Specimen Anatomical Collection Method Collection Time Receive d Time (Source) Location / / Volume Laterality Stump STRUCTURE OF RIGHT 11/18/2021 8:52 PM 02/2022 FOOT / Unknown EDT 10:42 PM EDT Comment: Cut end of RIGHT metatarsal bon e. Resulting Agency Comment Spec In Lab Sammy Baker MD MICROBIOLOGY - GENERAL ORDER SILAS Performing Organization Address City/State/[place] [address] Abscess/Wound Aspirate Culture (11/18/2021 8:52 PM EDT) Component Value Ref Test Analysis Performed At [facility] Range Method Time Signature Abscess/Wound No growth SIENNA Aspirate KIRTI Culture [facility] Gram Stain Few Neutrophils seen SIENNA No microorganisms seen. [facility] Results called to and read back by Sd Cedillo ??11/18/21 23:17:2 4 [facility] Specimen Anatomical Collection Method Collection Time Receive d Time (Source) Location / / Volume Laterality Stump STRUCTURE OF RIGHT 11/18/2021 8:52 PM 02/2022 FOOT / Unknown EDT 10:42 PM EDT Comment: Cut end of RIGHT metatarsal bon e. Resulting Agency Comment Spec In Lab Sammy Baker MD MICROBIOLOGY - GENERAL ORDER SILAS Performing Organization Address City/[facility]/[place] [address] (ABNORMAL) Anaerobic Culture (11/18/2021 8:52 PM EDT) [facility] QPD Method Time Signature Anaerobic Many SIENNA Culture Bacteroides KIRTI species (A) [facility] Organism Bacteroides SIENNA species (A) [facility] Specimen Anatomical Collection Method Collection Time Receive d Time (Source) Location / / Volume Laterality Abscess TOE STRUCTURE / 11/18/2021 8:52 PM 2021 Unknown EDT 10:41 PM EDT Comment: #2 RIGHT great toe. Resulting Agency Comment Spec In Lab Sammy Baker MD MICROBIOLOGY - GENERAL ORDER SILAS Performing Organization Address City/[facility]/ZIP Code Phon e Number [address] (ABNORMAL) Abscess/Wound Aspirate Culture (11/18/2021 8:52 PM EDT) Component Value Ref Test Analysis Performed At [facility] QPD Range Method Time Signature Abscess/Wound Many Proteus mirabilis MAR Y Aspirate Many Streptococcus milleri, anginosis group [place] Culture () [facility] Gram Stain Many Neutrophils seen SIENNA Many Gram Positive Cocci seen KIRTI Many Gram Negative Rods seen [facility] Results called to and read back by Sd Cedillo ??11/18/21 23:16:5 0 [facility] Organism Proteus mirabilis [facility] (A) [facility] Organism Streptococcus SIENNA milleri, [place] anginosis group [facility] Organism Gram Positive SIENNA Cocci (A) [facility] Organism Gram Negative SIENNA Rods (A) [facility] Specimen Anatomical Collection Method Collection Time Receive d Time (Source) Location / / Volume Laterality Abscess TOE STRUCTURE / 11/18/2021 8:52 PM 2021 Unknown EDT 10:41 PM EDT Comment: #2 RIGHT great toe. Resulting Agency Comment Spec In Lab Organism Antibiotic Method Susceptibility Proteus mirabilis Amikacin VITEK 2 METHOD Sensitive Proteus mirabilis Ampicillin + Sulbactam VITEK 2 METHOD Sensiti ve Proteus mirabilis Aztreonam VITEK 2 METHOD Sensitive Proteus mirabilis Cefepime VITEK 2 METHOD <=1: Sensitive Proteus mirabilis Ceftazidime VITEK 2 METHOD <=1: Sensitive Proteus mirabilis Ceftriaxone VITEK 2 METHOD Sensitive Proteus mirabilis Ertapenem VITEK 2 METHOD Sensitive Proteus mirabilis Gentamicin VITEK 2 METHOD Sensitive Proteus mirabilis Levofloxacin VITEK 2 METHOD Sensitive Comment: Levofloxacin and Ciprofloxac in may not adequately treat infections in critically ill patients even when isolates test susceptible in the laboratory. Contact Infectious Disease b efore using in critically ill patients. Proteus mirabilis Meropenem VITEK 2 METHOD <=0.25: Sensit bg Proteus mirabilis Piperacillin/Tazobactam VITEK 2 METHOD <=4: S ensitive Proteus mirabilis Tetracycline VITEK 2 METHOD Resistant Proteus mirabilis Tigecycline VITEK 2 METHOD Resistant Proteus mirabilis Tobramycin VITEK 2 METHOD Sensitive Proteus mirabilis Trimethoprim/Sulfa VITEK 2 METHOD Sensitive Sammy Baker MD MICROBIOLOGY - GENERAL ORDER SILAS Performing Organization Address City/[facility]/[place] [address] (ABNORMAL) Anaerobic Culture (11/18/2021 8:52 PM EDT) [employer] Method Time Signature Anaerobic Many SIENNA Culture Bacteroides [place] species (A) [facility] Organism Bacteroides SIEN[place] species (A) [facility] Specimen Anatomical Collection Method Collection Time Receive d Time (Source) Location / / Volume Laterality Abscess TOE STRUCTURE / 11/18/2021 8:52 PM 2021 Unknown EDT 10:43 PM EDT Comment: #1 RIGHT great toe. Resulting Agency Comment Spec In Lab Sammy Baker MD MICROBIOLOGY - GENERAL ORDER SILAS Performing Organization Address City/[facility]/[place] [address] (ABNORMAL) Abscess/Wound Aspirate Culture (11/18/2021 8:52 PM EDT) Component Value Ref Test Analysis Performed At [employer] Range Method Time Signature Abscess/Wound Many Proteus mirabilis MAR Y Aspirate Rare Staphylococcus aureus [facility] Culture Many Streptococcus milleri, anginosis group [facility] Gram Stain Many Neutrophils seen SIENNA Many Gram Positive Cocci seen KIRTI Many Gram Negative Rods seen Alivn [facility] Results called to and read back by Sd Cedillo ??11/18/21 23:16:1 6 [facility] () LABORATORY Organism Staphylococcus SIENNA aureus (A) [facility] Organism Proteus mirabilis [facility] (A) [facility] Organism Streptococcus SIENNA milleri, [facility] [facility] Organism Gram Positive SIENNA Cocci (A) [facility] Organism Gram Negative SIENNA Rods (A) [facility] Specimen Anatomical Collection Method Collection Time Receive d Time (Source) Location / / Volume Laterality Abscess TOE STRUCTURE / 11/18/2021 8:52 PM 2021 Unknown EDT 10:43 PM EDT Comment: #1 RIGHT great toe. Resulting Agency Comment Spec In Lab Organism Antibiotic Method Susceptibility Staphylococcus aureus Clindamycin VITEK 2 METHOD Sensitive Staphylococcus aureus Erythromycin VITEK 2 METHOD Resistant Staphylococcus aureus Gentamicin VITEK 2 METHOD Sensitive Comment: Gentamicin is not a ppropriate for Dewey-therapy. Staphylococcus aureus Oxacillin VITEK 2 METHOD Sensitive Comment: Oxacillin (methicillin) susc eptibility is a surrogate for the oral and parenteral cephalosporins, b eta-lactam combination agents (amoxicillin-clavulanate, am picillin-sulbactam and piperacillin-tazobactam) and carbapenem agents. ??It is N OT a surrogate for penicillin, ampicillin or piperacillin susceptibility. Staphylococcus aureus Trimethoprim/Sulfa VITEK 2 METHOD Sensiti ve Staphylococcus aureus Tetracycline VITEK 2 METHOD Sensitive Staphylococcus aureus Vancomycin VITEK 2 METHOD Sensitive Sammy Baker MD MICROBIOLOGY - GENERAL ORDER SILAS Performing Organization Address City/State/[place] [address] Lower Extremity w Contrast Right (11/18/2021 6:31 PM EDT) Anatomical Region Laterality Modality Hip, Leg, Knee, Thigh, Ankle, Foot Right Compu lul Tomography Specimen (Source) Anatomical Location Collection Method / Collectio n Time Received Time / Laterality Volume Impressions 11/19/2021 2:58 AM EDT 1. ??Necrotizing soft tissue infection involving the first digit and first second web interspace. 2. ??Ulcer plantar to the first MTP join t with adjacent 1.1 cm abscess. 3. ??Some fluid around the first MTP johnathan nt and tracking within the tendon sheath of the flexor hallucis longus concerning for septic joint and septic tenosynovitis. Findings were discussed with Anatoliy Oliva M.D., by Mario Camp at approximately 2030 hrs. Preliminary report signed by: Mario yoder at 11/18/2021 9:26 PM I have personally reviewed the image(s) and the resident's interpretation and agree with the findings, Wicho Michael MD at 11/19/2021 2:58 AM Thank you for letting us participate in the care of this patient. ??If you are a health care provider and have any questi ons regarding this report, please contact the number below. ??For patients who have questions please contact the health intensive care medicine specialist that requested your imaging first. ? Electronically signed by: Wicho Michael MD, [facility] ([phone]), at 11/19/2021 2:58 AM Narrative 11/19/2021 2:58 AM EDT EXAMINATION: CT LOWER EXTREMITY W CONTRAST RIGHT CLINICAL HISTORY: Soft tissue infection suspected, lower leg, xray done 66 yo with righ tlower extremity ifnecti on, check to see if air is ascending past sims TECHNIQUE: CT with contrast of the right lower extr emity. COMPARISON: Right foot radiographs 11/18/2021 FINDINGS: Soft tissue gas extending along the plan tar, medial, and to a lesser degree lateral aspect of the first digit proxim al phalanx and the first/second digit web interspace. There is a wound on the plantar surface of the foot near the first MTP joint (Series 9 image 58). Consuelo p to this wound there is a rim-enhancing collection measuring 1.1 cm (series 9 im age 56). No definitive underlying osseous destruction is identified. There is soft tissue thickening and fluid surrounding the first MTP joint. Fluid t racking proximally within the flexor hallucis longus tendon sheath (series 9 image 89), this fluid reaches the level of the mid MTP. Diffuse anasarca of the lower extremity and skin thickening. Bone: No aggressive osseous destruction identi fied. Diffuse degenerative changes throughout the foot, ankle, and knee. Se rpiginous geographic mixed sclerosis and lucencies within the proximal tibia and distal femur with the appearance of bone infarcts. Large os trigonum. Os peroneum . Joints: Right knee chondrocalcinosis and tricompartmental osteoarthropathy. Degenerative changes at the tibiotalar, subtalar, hindfoot, midfoot, and forefoot. Muscle: Atrophic flexor muscles of the foot and calf. Procedure Note Wicho Michael MD - 11/19/2021Formatt ing of this note might be different from the original. EXAMINATION: CT LOWER EXTREMITY W CONTRA ST RIGHT CLINICAL HISTORY: Soft tissue infection suspected, lower leg, xray done 66 yo with righ tlower extremity ifnecti on, check to see if air is ascending past sims TECHNIQUE: CT with contrast of the right lower extr emity. COMPARISON: Right foot radiographs 11/18/2021 FINDINGS: Soft tissue gas extending along the plan tar, medial, and to a lesser degree lateral aspect of the first digit proxim al phalanx and the first/second digit web interspace. There is a wound on the plantar surface of the foot near the first MTP joint (Series 9 image 58). Consuelo p to this wound there is a rim-enhancing collection measuring 1.1 cm (series 9 im age 56). No definitive underlying osseous destruction is identified. There is soft tissue thickening and fluid surrounding the first MTP joint. Fluid t racking proximally within the flexor hallucis longus tendon sheath (series 9 image 89), this fluid reaches the level of the mid MTP. Diffuse anasarca of the lower extremity and skin thickening. Bone: No aggressive osseous destruction identi fied. Diffuse degenerative changes throughout the foot, ankle, and knee. Se rpiginous geographic mixed sclerosis and lucencies within the proximal tibia and distal femur with the appearance of bone infarcts. Large os trigonum. Os peroneum . Joints: Right knee chondrocalcinosis and tricompartmental osteoarthropathy. Degenerative changes at the tibiotalar, subtalar, hindfoot, midfoot, and forefoot. Muscle: Atrophic flexor muscles of the foot and calf. IMPRESSION 1. Necrotizing soft tissue infection inv olving the first digit and first second web interspace. 2. Ulcer plantar to the first MTP joint with adjacent 1.1 cm abscess. 3. Some fluid around the first MTP joint and tracking within the tendon sheath of the flexor hallucis longus concerning for septic joint and septic tenosynovitis. Findings were discussed with Anatoliy Oliva M.D., by Mario Camp at approximately 2030 hrs. Preliminary report signed by: Mario yoder at 11/18/2021 9:26 PM I have personally reviewed the image(s) and the resident's interpretation and agree with the findings, Wicho Michael MD at 11/19/2021 2:58 AM Thank you for letting us participate in the care of this patient. If you are a health care provider and have any questi ons regarding this report, please contact the number below. For patients w ho have questions please contact the health intensive care medicine specialist that requested your imaging first. Electronically signed by: Wicho Michael MD, [facility] ([phone]), at 11/19/2021 2:58 AM Lorrie Lundberg MD IMG CT ORDERABLES Hepatic Function Panel (11/18/2021 5:25 PM EDT) Analysis Performed At Patho logist Time Signature Total Protein 6.6 6.1 - 8.0 [facility] g/dL [facility] Albumin 3.3 3.2 - 5.2 [facility] AST Not Perf 0 - 39 [facility] Comment: Unable to quantitate due to sample hemol ysis. ??Sample redraw suggested. Called by: dahlia, Read back by: rukhsana ornelas, Date/Time:11/18/21 20:09. ALT 8 0 - 55 unit/L [facility] Alk Phos 91 40 - 130 unit/L [facility] Total Bilirubin 0.4 0.2 - 1.3 mg/dL [facility] Bili, Direct Not Perf 0.0 - 0.3 [facility] Comment: Unable to quantitate due to sample hemol ysis. ??Sample redraw suggested. Called by: dahlia, Read back by: rukhsana ornelas, Date/Time:11/18/21 20:09. Specimen Anatomical Collection Method Collection Time Receive d Time (Source) Location / / Volume Laterality Blood Venous Draw / 11/18/2021 5:25 PM 11/19/19 5:38 Unknown EDT PM EDT Resulting Agency Comment Spec In Lab Valentina Montoya MD CHEMISTRY ORDERABLES Performing Organization Address City/State/[place] [address] (ABNORMAL) Basic Metabolic Panel (non-fasting) (11/18/2021 5:25 PM EDT) P athologist Signature Glucose Lvl 113 65 - 199 [facility] mg/dL [facility] Comment: Diabetes: >=200 mg/dL plus symp toms BUN 13 10 - 20 mg/dL [facility] Creatinine 0.93 0.80 - 1.50 mg/dL [facility] Sodium 136 135 - 145 mmol/L [facility] Potassium 4.2 3.5 - 5.0 mmol/L [facility] Comment: Please note: ??Patients with WBC >100,00 0 may have falsely elevated Potassium levels. ??For accurate Potassium quantif ication in these patients send serum separator tube (gold top) for subsequent determinations. ??Contact the Clinical Chemistry Laboratory if there are any qu estions. Chloride 96 (L) 98 - 107 mmol/L [facility] CO2 32 (H) 22 - 31 mmol/L [facility] Anion Gap 8 5 - 15 mmol/L [facility] Calcium 9.0 8.5 - 10.5 mg/dL [facility] Estimated GFR 89 >=60 mL/min/1.73 m?? [facility] Comment: This patient's estimated GFR was calcula lul using the 2020 CKD-EPI equation. The estimated GFR can vary from the kaveh ured GFR by up to 30% in the absence of rapidly changing kidney function. Assess ment of the estimated GFR is not appropriate when creatinine concentratio ns are rapidly changing. For clinical situations in which a more precise estim ate of GFR is necessary, consider alternative methods of GFR estimation nunez ch as a 24-hour urine creatinine clearance. Assignment of CKD stage 1-5 for patients with an eGFR near the transition point between stages may be based on clinical assessment of muscle mass and symptoms in addition to eGFR. Specimen Anatomical Collection Method Collection Time Receive d Time (Source) Location / / Volume Laterality Blood 11/18/2021 5:25 PM 2 5:36 EDT PM EDT Resulting Agency Comment Spec In Lab Lorrie Lundberg MD CHEMISTRY ORDERABLES Performing Organization Address City/State/[place] [address] (ABNORMAL) CRP, acute inflammation (11/18/2021 5:25 PM EDT) P athologist Signature CRP 265.6 (H) <=4.9 mg/L [facility] Specimen Anatomical Collection Method Collection Time Receive d Time (Source) Location / / Volume Laterality Blood 11/18/2021 5:25 PM 2 5:36 EDT PM EDT Resulting Agency Comment Spec In Lab Lorrie Lundberg MD CHEMISTRY ORDERABLES Performing Organization Address City/State/[place] [address] documented in this encounter Visit Diagnoses Diagnosis S/p right great toe amp, I&D, vac 2 (Diego) - Primary Necrotizing fasciitis Necrotic toes Gangrene Cellulitis of leg, right Cellulitis and abscess of leg, except fo ot Essential hypertension Unspecified essential hypertension Chronic foot ulcer, unspecified laterali ty, unspecified ulcer stage QT prolongation Nonspecific abnormal electrocardiogram ( ECG) (EKG) Osteomyelitis of great toe of right foot Diabetic infection of right foot Type II or unspecified type diabetes paul litus with other specified manifestations, not stated as uncontrolled Coagulase-negative staphylococcal infect ion Other staphylococcus infection in condit ions classified elsewhere and of unspecified site Sequela of Corynebacterium infection Bacteroides infection Bacteroides fragilis infection in condit ions classified elsewhere and of unspecified site Proteus mirabilis infection Proteus (mirabilis) (morganii) infection in conditions classified elsewhere and of unspecified site Infection due to species of Streptococcu s milleri group Cellulitis of foot, right Cellulitis and abscess of foot, except t oes Acute osteomyelitis of right foot Acute osteomyelitis, ankle and foot Alcohol withdrawal syndrome, with deliri um documented in this encounter Admitting Diagnoses Diagnosis Necrotizing fasciitis documented in this encounter Administered Medications Inactive Administered Medications - up to 3 most recent administrations Medication Order MAR Action Action Date Dose Rate Site acetaminophen (Tylenol) tablet 650 Given 11/27/2021 4:28 AM EDT 650 mg mg 650 mg, Oral, EVERY 6 HOURS PRN, Starting on Fri11/18/21 at 2202, Until Fri11/27/21 at 1114, Pain, Fever, Administer for temperature greater than or equal to 38.2 degrees celsius. Maximum daily dose of acetaminophen from all sources not to exceed 4,000 mg. When ordered for pain, acetaminophen should be given even when other ordered pain medications are indicated., Routine Given 11/26/2021 11:53 AM EDT 650 mg Given 11/25/2021 9:53 AM EDT 650 mg acetaminophen (Tylenol) tablet 650 mg Given 11/29/2021 11:33 AM EDT 650 mg 650 mg, Oral, EVERY 6 HOURS SCHEDULED, First dose (after last modification) on Fri11/27/21 at 1200, Until Discontinued, Administer for temperature greater than or equal to 38.2 degrees celsius. Maximum daily dose of acetaminophen from all sources not to exceed 4,000 mg. When ordered for pain, acetaminophen should be given even when other ordered pain medications are indicated., Routine Given 11/29/2021 6:28 AM EDT 650 mg Given 11/29/2021 12:13 AM EDT 650 mg albuteroL (Proventil) nebulizer solution 2.5 Given 9:56 AM EDT 2.5 mg mg 2.5 mg, Nebulization, EVERY 4 HOURS PRN, Starting on 11/18/21 at 2148, Until Christina 11/29/21 at 2006, Wheezing, Shortness of Breath, not controlled with scheduled duonebs, Routine Given 11/20/2021 4:50 AM EDT 2.5 mg Given 11/18/2021 10:12 PM EDT 2.5 mg busPIRone (Buspar) tablet 15 mg Given 11/29/2021 9:29 AM EDT 15 mg 15 mg, Oral, 2 TIMES DAILY, First dose on Fri11/19/21 at 0015, Until Discontinued, Routine Given 11/28/2021 10:07 PM EDT 15 mg Given 11/28/2021 8:18 AM EDT 15 mg camphor-methyl salicyl-menthoL (Bengay Ultra Given 11/24/2021 9: 13 AM EDT Strength) 4-30-10 % cream Topical (Top), 2 TIMES DAILY, First dose on 11/24/21 at 0015, Until Discontinued, Application Site: back cefTRIAXone (Rocephin) 2 g vial attach New Bag 11/26/2021 4:31 PM EDT 2 g 100 mL/hr to sodium chloride 0.9% 50 mL Mini-Bag Plus 2 g, Intravenous, EVERY 24 HOURS, First dose on Fri11/23/21 at 1645, Until Discontinued, Administer over 30 Minutes, Indication for (Active or Suspected): Skin/Skin Structure New Bag 11/25/2021 4:27 PM EDT 2 g 100 mL/hr New Bag 11/24/2021 4:09 PM EDT 2 g 100 mL/hr clindamycin (Cleocin) 600 mg in New Bag 11/22/2021 2:36 PM EDT 600 mg 150 mL/hr dextrose 5% 50 mL infusion 600 mg, Intravenous, EVERY 8 HOURS, First dose on Fri11/18/21 at 2200, Until Discontinued, Administer over 20 Minutes, Indication for (Active or Suspected): Bone/Joint New Bag 11/22/2021 6:21 AM EDT 600 mg 150 mL/hr New Bag 11/21/2021 10:53 PM EDT 600 mg 150 mL/hr cyclobenzaprine (Flexeril) tablet 5 mg Given 11/27/2021 7:23 PM EDT 5 mg 5 mg, Oral, 3 TIMES DAILY PRN, Starting on Fri11/27/21 at 1855, Until Fri11/29/21 at 2006, Muscle spasms, Routine DAPTOmycin (Cubicin) 700 mg in New Bag 11/29/2021 2:28 PM EDT 700 mg 128 mL/hr sodium chloride 0.9% 64 mL 700 mg, Intravenous, EVERY 24 HOURS, First dose on Fri11/27/21 at 1430, Until Discontinued, Administer over 30 Minutes, Indication for (Active or Suspected): Bone/Joint, Restricted Antibiotic: Please indicate the most appropriate choice: ID Approval by Donal Serrano New Bag 11/28/2021 4:09 PM EDT 700 mg 128 mL/hr New Bag 11/27/2021 4:11 PM EDT 700 mg 128 mL/hr enoxaparin (Lovenox) (40 mg/0.4 mL) Given 11/28/2021 10:06 PM ED T 40 mg subcutaneous injection 40 mg 40 mg, Subcutaneous, NIGHTLY, First dose on Fri11/19/21 at 2100, Until Discontinued, Routine Given 11/27/2021 8:59 PM EDT 40 mg Given 11/26/2021 9:10 PM EDT 40 mg ertapenem (INVanz) 1 g vial attach to New 11/29/2021 9:28 AM EDT 1 g 200 mL/hr sodium chloride 0.9% 100 mL Mini-Bag Plus 1 g, Intravenous, DAILY, First dose on Fri11/27/21 at 1400, Until Discontinued, Administer over 30 Minutes, Indication for (Active or Suspected): Bone/Joint, Restricted Antibiotic: Please indicate the most appropriate choice: ID Approval by Donal Serrano New Bag 11/28/2021 8:34 AM EDT 1 g 200 mL/hr New Bag 11/27/2021 2:40 PM EDT 1 g 200 mL/hr folic acid (Folvite) tablet 1,000 mcg Given 11/29/2021 9:28 AM EDT 1,000 mcg 1,000 mcg, Oral, DAILY, First dose on Fri11/20/21 at 1700, Until Discontinued, Routine Given 11/28/2021 8:17 AM EDT 1,000 mcg Given 11/27/2021 8:31 AM EDT 1,000 mcg furosemide (Lasix) tablet 80 mg Given 11/29/2021 9:29 AM EDT 80 mg 80 mg, Oral, DAILY, First dose on Fri11/26/21 at 1015, Until Discontinued, Routine Given 11/28/2021 8:17 AM EDT 80 mg Given 11/27/2021 8:32 AM EDT 80 mg gabapentin (Neurontin) capsule 600 mg Given 11/29/2021 2:28 PM EDT 600 mg 600 mg, Oral, 3 TIMES DAILY, First dose on Fri11/19/21 at 0900, Until Discontinued, Routine Given 11/29/2021 9:29 AM EDT 600 mg Given 11/28/2021 10:07 PM EDT 600 mg hyaluronidase (Amphadase) (150 units/mL) Given 11/19/2021 12 :45 PM EDT 30 Units injection 15-150 Units 15-150 Units, Subcutaneous, ONCE, 1 dose, On Fri11/19/21 at 1245, Hyaluronidase is supplied in a 1-mL vial at a concentration of 150 units/mL. Dilute with 9 mL of normal saline. This yields the desired concentration of 15 units/mL. Draw up 1 mL increments of the 15 unit/mL diluted solution into a 1-mL syringe with a 26-g needle. Instill 0.2 -mL aliquots of the 15 unit/mL solution at least every 2 - 3 centimeters or five evenly spaced aliquots subcutaneously around the periphery of the infiltrated area. Use a new 26-gauge needle for each injection. This is best done within one hour of the extravasation. Discard the remaining solution., STAT hydrALAZINE (Apresoline) (20 mg/mL) injection Given 2:36 AM EDT 10 mg 10 mg 10 mg, Intravenous, ONCE, 1 dose, On Fri11/20/21 at 0300, Routine hydrALAZINE (Apresoline) (20 mg/mL) injection 5 Given 11/23/2021 9:27 PM EDT 5 mg mg 5 mg, Intravenous, ONCE, 1 dose, On Fri11/23/21 at 2200 hydrALAZINE (Apresoline) (20 mg/mL) injection 5 Given 11/23/2021 9:55 PM EDT 5 mg mg 5 mg, Intravenous, ONCE, 1 dose, On Fri11/23/21 at 2230 hydrALAZINE (Apresoline) (20 mg/mL) injection 5 Given 11/26/2021 4:27 AM EDT 5 mg mg 5 mg, Intravenous, ONCE, 1 dose, On Fri11/26/21 at 0500 hydrALAZINE (Apresoline) (20 mg/mL) injection 5 Given 11/26/2021 5:24 AM EDT 5 mg mg 5 mg, Intravenous, ONCE, 1 dose, On Fri11/26/21 at 0600 hydrALAZINE (Apresoline) (20 mg/mL) injection 5 Given 11/27/2021 4:34 AM EDT 5 mg mg 5 mg, Intravenous, ONCE, 1 dose, On Fri11/27/21 at 0445 hydrALAZINE (Apresoline) (20 mg/mL) inje ction 5 mg 5 mg, Intravenous, EVERY 6 HOURS PRN, St arting on Fri11/28/21 at 0837, Until Fri11/29/21 at 2006, High Blood Pressure, SBP > 180 HYDROmorphone (Dilaudid) (0.5 mg/0.5 mL) Given 11/20/2021 8:23 A M EDT 0.5 mg injection syringe 0.5 mg 0.5 mg, Subcutaneous, EVERY 3 HOURS PRN, Starting on Fri11/18/21 at 2259, Until Fri11/20/21 at 0942, Pain, Routine Given 11/20/2021 5:11 AM EDT 0.5 mg Given 11/20/2021 2:07 AM EDT 0.5 mg HYDROmorphone (Dilaudid) (0.5 mg/0.5 mL) Given 11/23/2021 3:55 P M EDT 0.6 mg injection syringe 0.6 mg 0.6 mg, Subcutaneous, EVERY 3 HOURS PRN, Starting on Fri11/23/21 at 1033, Until Fri11/25/21 at 1839, Pain, moderate pain (4-6), Please hold for somnolence, Routine HYDROmorphone (Dilaudid) (0.5 mg/0.5 mL) Given 11/20/2021 1:08 P M EDT 0.8 mg injection syringe 0.8 mg 0.8 mg, Intravenous, EVERY 3 HOURS PRN, Starting on Fri11/20/21 at 0941, Until Fri11/23/21 at 1033, Pain, severe pain (7-10), Please hold for somnolence, Routine HYDROmorphone (Dilaudid) (0.5 mg/0.5 mL) Given 11/25/2021 4:24 P M EDT 0.8 mg injection syringe 0.8 mg 0.8 mg, Subcutaneous, EVERY 3 HOURS PRN, Starting on Fri11/23/21 at 1033, Until Fri11/25/21 at 1839, Pain, severe pain (7-10), Please hold for somnolence, Routine Given 11/25/2021 1:41 PM EDT 0.8 mg Given 11/25/2021 11:33 AM EDT 0.8 mg HYDROmorphone (Dilaudid) (0.5 mg/0.5 mL) Given 11/27/2021 2:49 A M EDT 1 mg injection syringe 1 mg 1 mg, Subcutaneous, EVERY 3 HOURS PRN, Starting on Fri11/25/21 at 1838, Until Fri11/27/21 at 1121, Pain, severe pain (7-10), Please hold for somnolence, Routine Given 11/26/2021 9:08 PM EDT 1 mg Given 11/26/2021 4:30 PM EDT 1 mg HYDROmorphone (Dilaudid) (2 mg/mL) Given 11/25/2021 10:20 AM EDT 0.2 mg multi-dose injection solution 0.6 mg 0.6 mg, Intravenous, EVERY 10 MIN PRN, Starting on Fri11/25/21 at 0913, Until Fri11/25/21 at 1121, Pain, For Moderate to Severe Pain (6-10 out of 10), Hold for respiratory rate less than 10 per minute. Maximum dose 4 mg over one hour including administrations in the OR. If multiple pain medications are ordered, start with HYDROmorphone or morphine and use fentaNYL for breakthrough pain, PACU Recovery, Routine Given 11/25/2021 10:05 AM EDT 0.6 mg Given 11/25/2021 9:56 AM EDT 0.6 mg HYDROmorphone (Dilaudid) tablet 1 mg 1 mg, Oral, EVERY 4 HOURS PRN, Starting on Fri11/27/21 at 1420, Until Christina 11/29/21 at 2005, Pain, for mild pain (1-3), May give an additional 2 mg once if pain not relieved in 30-60 minutes., Routine HYDROmorphone (Dilaudid) tablet 2 mg Given 11/28/2021 12:45 AM EDT 2 mg 2 mg, Oral, EVERY 4 HOURS PRN, Starting on Fri11/27/21 at 1420, Until Christina 11/29/21 at 2005, Pain, for moderate pain (4-6), May give an additional 2 mg once if pain not relieved in 30-60 minutes., Routine HYDROmorphone (Dilaudid) tablet 4 mg Given 11/27/2021 5:36 PM EDT 4 mg 4 mg, Oral, EVERY 4 HOURS PRN, Starting on Fri11/27/21 at 1420, Until Christina 11/29/21 at 2005, Pain, for severe pain (7-10), May give an additional 2 mg once if pain not relieved in 30-60 minutes., Routine hydrOXYzine (Atarax) tablet 25 mg Given 11/24/2021 11:05 PM EDT 25 mg 25 mg, Oral, 4 TIMES DAILY PRN, Starting on Fri11/19/21 at 1618, Until Fri11/27/21 at 1123, Anxiety, Routine Given 11/22/2021 10:15 PM EDT 25 mg Given 11/22/2021 2:36 PM EDT 25 mg hydrOXYzine (Atarax) tablet 25 mg Given 11/28/2021 4:07 PM EDT 25 mg 25 mg, Oral, DAILY PRN, Starting on Fri11/27/21 at 1130, Until Fri11/29/21 at 2006, Anxiety, Routine iohexoL (Omnipaque) (350 mg/mL) solution Given 11/18/2021 6:21 P M EDT 110 mLs 0-200 mL 0-200 mL, Intravenous, ONCE PRN, 1 dose, Starting on Fri11/18/21 at 1821, Until Fri11/18/21 at 1821, Per Protocol, Warning Vesicant/Irritant Medication , Radiology Contrast, Routine ipratropium-albuteroL (Duoneb) 0.5 mg-3 mg(2.5 Given 0 11/28/2021 5:54 PM EDT 3 mLs mg base)/3 mL nebulizer solution 3 mL 3 mL, Nebulization, EVERY 6 HOURS WHILE AWAKE, First dose on Fri11/19/21 at 0600, Until Discontinued, Routine Given 11/28/2021 12:06 PM EDT 3 mLs Given 11/27/2021 5:36 PM EDT 3 mLs ipratropium-albuteroL (Duoneb) 0.5 mg-3 Given 11/18/2021 11:16 P M EDT 3 mLs mg(2.5 mg base)/3 mL nebulizer solution 3 mL 3 mL, Nebulization, ONCE, 1 dose, On Fri11/18/21 at 1845, STAT lactobacillus with pectin capsule 1 Given 11/29/2021 9:28 AM EDT 1 capsule capsule 1 capsule, Oral, DAILY, First dose on Fri11/28/21 at 1815, Until Discontinued, Routine Given 11/28/2021 5:53 PM EDT 1 capsule lidocaine (Glydo) 2 % gel 11 mL Given 11/23/2021 9:27 PM EDT 11 mLs 11 mL, INTRA-URETHRAL, ONCE, 1 dose, On Fri11/23/21 at 2215, Routine lisinopriL (Zestril) tablet 40 mg Given 11/29/2021 9:28 AM EDT 40 mg 40 mg, Oral, DAILY, First dose on Fri11/20/21 at 1530, Until Discontinued, Hold for SBP <90, Routine Given 11/28/2021 8:16 AM EDT 40 mg Given 11/27/2021 8:32 AM EDT 40 mg loperamide (Imodium A-D) capsule 2 mg Given 11/28/2021 5:53 PM EDT 2 mg 2 mg, Oral, ONCE, 1 dose, On Fri11/28/21 at 1815, Do not exceed 16 mg/day., Routine LORazepam (Ativan) tablet 0.5 mg Given 11/20/2021 1:34 PM EDT 0.5 mg 0.5 mg, Oral, ONCE, 1 dose, On Fri11/20/21 at 1430, Routine LORazepam (Ativan) tablet 0.5 mg Given 11/29/2021 1:36 PM EDT 0.5 mg 0.5 mg, Oral, ONCE, 1 dose, On Fri11/29/21 at 1415, Routine LORazepam (Ativan) tablet 0.5-1.5 mg Given 11/20/2021 12:19 PM EDT 0.5 mg 0.5-1.5 mg, Oral, EVERY 4 HOURS PRN, Starting on Fri11/19/21 at 1920, Until Fri11/20/21 at 1300, alcohol/benzodiazepine withdrawal- uncomplicated, ATTENTION: THIS IS LOW DOSE LORAZEPAM When given intravenously, the rate of administration should not exceed 2 mg/minute with ermergency equipment available. Per assessment scale for uncomplicated withdrawal from alcohol. May give SL if unable to take PO. Medication should be administered at least every 4 hours: For withdrawal score of 5-7, give 0.5 mg PO or SL: administer every 4 hours. For withdrawal score of 8-10, give 1 mg PO or SL: administer every 4 hours. For withdrawal score of 11 or greater, give 1.5 mg PO or SL: administer every 4 hours. + If withdrawal score remains 11 or greater for two consecutive assessment periods, call provider. + If patient has had seizures in previous 8 hours and has gone 4 hours without medications, give 3 mg PO or SL., Routine Given 11/20/2021 3:50 AM EDT 0.5 mg LORazepam (Ativan) tablet 1 mg Given 11/20/2021 3:04 PM EDT 1 mg 1 mg, Oral, ONCE, 1 dose, On Fri11/20/21 at 1600, Routine melatonin tablet 3 mg Given 11/24/2021 8:31 PM EDT 3 mg 3 mg, Oral, NIGHTLY PRN, Starting on Fri11/18/21 at 2259, Until Fri11/29/21 at 2006, Sleep, Routine Given 11/21/2021 8:55 PM EDT 3 mg methadone (Dolophine) (10 mg/mL) oral liquid Given 11:00 AM EDT 45 mg 45 mg 45 mg, Oral, DAILY, First dose on Fri11/29/21 at 1030, Until Discontinued, Liquid methadone should be used to avoid diversion, and a mouth check should be performed after each dose., Routine methadone (Methadose) (2 mg/mL) oral liquid 15 Given 0 11/28/2021 8:20 AM EDT 15 mg mg 15 mg, Oral, 2 TIMES DAILY, First dose (after last modification) on Fri11/27/21 at 1445, Until Discontinued, Liquid methadone should be used to avoid diversion, and a mouth check should be performed after each dose., STAT Given 11/27/2021 9:47 PM EDT 15 mg Given 11/27/2021 3:18 PM EDT 15 mg methadone (Methadose) (2 mg/mL) oral liquid 30 Given 0 11/28/2021 2:00 PM EDT 30 mg mg 30 mg, Oral, ONCE, 1 dose, On Fri11/28/21 at 1330, Liquid methadone should be used to avoid diversion, and a mouth check should be performed after each dose., STAT metoprolol (LOPRESSOR) injection 5 mg Given 11/23/2021 7:46 PM EDT 5 mg 5 mg, Intravenous, ONCE, 1 dose, On Fri11/23/21 at 1945 metoprolol succinate XL (Toprol-XL) tablet Given 11/29/2021 9:28 AM EDT 150 mg 150 mg 150 mg, Oral, DAILY, First dose on Fri11/24/21 at 0945, Until Discontinued, DO NOT CRUSH OR OPEN, Routine Given 11/28/2021 8:18 AM EDT 150 mg Given 11/27/2021 8:31 AM EDT 150 mg metoproloL tartrate (Lopressor) tablet 2 5 mg Given 11/24/2021 5:13 AM EDT 25 mg 25 mg, Oral, EVERY 6 HOURS SCHEDULED, First dose on Fri11/19/21 at 0015, Until Discontinued, Hold for SBP <90, Routine Given 11/23/2021 11:09 PM EDT 25 mg Given 11/23/2021 5:40 PM EDT 25 mg metroNIDAZOLE (Flagyl) tablet 500 mg Given 11/27/2021 8:31 AM EDT 500 mg 500 mg, Oral, 3 TIMES DAILY, First dose on Fri11/23/21 at 1645, Until Discontinued, Routine Given 11/26/2021 9:10 PM EDT 500 mg Given 11/26/2021 3:01 PM EDT 500 mg midazolam (pf) (Versed) (1 mg/mL) injection 1 Given 11/22/19 2:50 PM EDT 1 mg mg 1 mg, Intravenous, EVERY 5 MIN PRN, Starting on Fri11/21/21 at 1431, Until Fri11/29/21 at 2006, Other, sedation or prior to injection of local anesthetic, Hold for delirium/agitation. (Maximum dose 5 mg)., Routine Given 11/21/2021 2:45 PM EDT 1 mg mirtazapine (Remeron) tablet 30 mg Given 11/28/2021 10:07 PM EDT 30 mg 30 mg, Oral, NIGHTLY, First dose on Fri11/19/21 at 0015, Until Discontinued, Routine Given 11/27/2021 8:59 PM EDT 30 mg Given 11/26/2021 9:10 PM EDT 30 mg nicotine (Nicoderm CQ) 21 Patch Applied 11/29/2021 9:45 AM 21 mg 09- Arm Upper mg/24 hr patch 21 mg EDT (Left) 21 mg (1 patch), Transdermal, DAILY, First dose on Fri11/19/21 at 0900, Until Discontinued, Apply new patch to nonhairy, clean, dry skin on the upper body or upper outer arm; each patch should be applied to a different site , Routine Patch Applied 11/28/2021 8:38 AM EDT 21 mg 04- Shoulder (Right) Patch Applied 11/27/2021 8:32 AM EDT 21 mg 03- Shoulder (Left) nicotine (NICODERM CQ) 21 mg/24 hr patch Patch Removal Transdermal, DAILY, First dose on 04/02 at 0900, Until Discontinued, Remove nicotine 21 mg/24 hr patch nicotine (NICODERM CQ) 21 mg/24 hr patch Patch Verification Transdermal, 2 TIMES DAILY, First dose o n Fri11/19/21 at 0800, Until Discontinued, Verify nicotine 21 mg/24 hr patch ondansetron (Zofran) tablet 4-8 mg Given 11/19/2021 6:12 AM EDT 4 mg 4-8 mg, Oral, EVERY 8 HOURS PRN, Starting on 11/18/21 at 2259, Until Fri11/27/21 at 1122, Nausea, Vomiting, If multiple antiemetics are ordered, use ondansetron first. PO Preferred. If patient unable to take PO, may give IV if ordered. Start with 4mg and if ineffective in 45 minutes, give an additional 4mg. If unable to take PO, may give IV., Routine pantoprazole EC (Protonix) tablet 40 mg Given 11/29/2021 9:29 AM EDT 40 mg 40 mg, Oral, 2 TIMES DAILY, First dose on Fri11/19/21 at 0000, Until Discontinued, DO NOT CRUSH OR OPEN, Routine Given 11/28/2021 10:07 PM EDT 40 mg Given 11/28/2021 8:18 AM EDT 40 mg PHENobarbitaL (Luminal) (130 mg/mL) Given 11/20/2021 11:49 P M EDT 318.5 mg 21 mL/hr injection 318.5 mg 318.5 mg (rounded from 318.15 mg = 4.5 mg/kg/dose ? 70.7 kg [place] weight), Intravenous, at 21 mL/hr, EVERY 3 HOURS, 2 doses, First dose on Fri11/20/21 at 2045, Last dose on Fri11/20/21 at 2345, Administer as slow IV Push at at rate no more than 50 mg/minute. Hold for RASS Less than -1: Not fully alert, but has sustained (more than 10 seconds) awakening, with eye contact, to voice. Hold for HR Less than 60 bpm. Hold for SBP Less than 90 mmHg., Routine PHENobarbitaL (Luminal) (130 mg/mL) Given 11/22/2021 10:36 P M EDT 318.5 mg 21 mL/hr injection 318.5 mg 318.5 mg (rounded from 318.15 mg = 4.5 mg/kg/dose ? 70.7 kg [place] weight), Intravenous, at 21 mL/hr, EVERY 30 MIN PRN, 2 doses, Starting on Fri11/20/21 at 1649, Until Fri11/22/21 at 2243, Agitation, Administer as slow IV Push at at rate no more than 50 mg/minute. Hold for RASS Less than -1: Not fully alert, but has sustained (more than 10 seconds) awakening, with eye contact, to voice. Hold for HR Less than 60 bpm. Hold for SBP Less than 90 mmHg., Routine Given 11/21/2021 5:25 PM EDT 318.5 mg 21 mL/hr PHENobarbitaL (Luminal) (130 Given 11/20/2021 6:04 PM EDT 423.8 mg 21.7 mL/hr mg/mL) injection 423.8 mg 423.8 mg (rounded from 424.2 mg = 6 mg/kg/dose ? 70.7 kg [place] weight), Intravenous, at 21.7 mL/hr, ONCE, 1 dose, On Fri11/20/21 at 1745, Administer as slow IV Push at at rate no more than 50 mg/minute. Hold for RASS Less than -1: Not fully alert, but has sustained (more than 10 seconds) awakening, with eye contact, to voice. Hold for HR Less than 60 bpm. Hold for SBP Less than 90 mmHg., Routine PHENobarbitaL (Luminal) tablet 16.2 mg Given 11/23/2021 9:07 PM EDT 16.2 mg 16.2 mg (rounded from 16.968 mg = 0.24 mg/kg/dose ? 70.7 kg [place] weight), Oral, 2 TIMES DAILY, 2 doses, First dose on Fri11/23/21 at 0900, Last dose on Fri11/23/21 at 2100, Hold for RASS Less than -1: Not fully alert, but has sustained (more than 10 seconds) awakening, with eye contact, to voice. Hold for HR Less than 60 bpm. Hold for SBP Less than 90 mmHg., Routine Given 11/23/2021 9:21 AM EDT 16.2 mg PHENobarbitaL (Luminal) tablet 32.4 mg Given 11/22/2021 8:37 PM EDT 32.4 mg 32.4 mg (rounded from 33.936 mg = 0.48 mg/kg/dose ? 70.7 kg [place] weight), Oral, 2 TIMES DAILY, 2 doses, First dose on Fri11/22/21 at 0900, Last dose on Fri11/22/21 at 2100, Hold for RASS Less than -1: Not fully alert, but has sustained (more than 10 seconds) awakening, with eye contact, to voice. Hold for HR Less than 60 bpm. Hold for SBP Less than 90 mmHg., Routine Given 11/22/2021 9:10 AM EDT 32.4 mg PHENobarbitaL (Luminal) tablet 32.4 mg Given 11/23/2021 4:55 AM EDT 32.4 mg 32.4 mg, Oral, ONCE, 1 dose, On Fri11/23/21 at 0545, Routine PHENobarbitaL (Luminal) tablet 64.8 mg Given 11/21/2021 8:55 PM EDT 64.8 mg 64.8 mg (rounded from 67.872 mg = 0.96 mg/kg/dose ? 70.7 kg [place] weight), Oral, 2 TIMES DAILY, 2 doses, First dose on Fri11/21/21 at 0900, Last dose on Fri11/21/21 at 2100, Hold for RASS Less than -1: Not fully alert, but has sustained (more than 10 seconds) awakening, with eye contact, to voice. Hold for HR Less than 60 bpm. Hold for SBP Less than 90 mmHg., Routine Given 11/21/2021 9:14 AM EDT 64.8 mg piperacillin-tazobactam (Zosyn) New Bag 11/20/2021 1:08 PM 3.375 g 12.5 mL/hr 3.375 g vial attach to sodium EDT chloride 0.9% 50 mL Mini-Bag Plus 3.375 g, Intravenous, EVERY 8 HOURS, First dose on Fri11/19/21 at 0200, Until Discontinued, Administer over 4 Hours, Warning Vesicant/Irritant Medication Do not administer or Y-site with lactated ringers., Indication for (Active or Suspected): Skin/Skin Structure New Bag 11/20/2021 1:20 AM EDT 3.375 g 12.5 mL/hr New Bag 11/19/2021 5:24 PM EDT 3.375 g 12.5 mL/hr piperacillin-tazobactam (Zosyn) 3.375 g vial Bolus 1:02 PM EDT 3.375 g attach to sodium chloride 0.9% 50 mL Mini-Bag Plus 3.375 g, Intravenous, EVERY 8 HOURS, First dose (after last modification) on Fri11/20/21 at 2100, Until Discontinued, Administer over 4 Hours, Warning Vesicant/Irritant Medication Do not administer or Y-site with lactated ringers., Indication for (Active or Suspected): Skin/Skin Structure New Bag 11/22/2021 8:39 PM EDT 3.375 g 12.5 mL/hr New Bag 11/22/2021 3:25 PM EDT 3.375 g 12.5 mL/hr polyethylene glycoL (Miralax) packet 17 g 17 g, Oral, DAILY PRN, Starting on Fri at 1113, Until Fri11/29/21 at 2006, Constipation, Routine potassium chloride 10 mEq in New Bag 11/28/2021 8:23 AM EDT 10 mEq 100 mL/hr sterile water 100 mL infusion 10 mEq, Intravenous, EVERY 2 HOURS, 3 doses, First dose on Fri11/28/21 at 0500, Last dose on Fri11/28/21 at 0900, Administer over 60 Minutes, Warning Vesicant/Irritant Medication New Bag 11/28/2021 6:18 AM EDT 10 mEq 100 mL/hr New Bag 11/28/2021 4:40 AM EDT 10 mEq 100 mL/hr potassium chloride ER (K-Dur/Klor-Con) Given 11/21/2021 10:45 AM EDT 40 mEq tablet 40 mEq 40 mEq, Oral, ONCE, 1 dose, On Fri11/21/21 at 1045, 20 mEq tablet may be dissolved in water for administration, Routine potassium chloride ER (K-Dur/Klor-Con) tablet Given 4:39 AM EDT 40 mEq 40 mEq 40 mEq, Oral, ONCE, 1 dose, On Fri11/28/21 at 0500, 20 mEq tablet may be dissolved in water for administration, Routine QUEtiapine (SEROquel) tablet 50 mg Given 11/23/2021 3:13 AM EDT 50 mg 50 mg, Oral, ONCE, 1 dose, On Fri11/23/21 at 0345, Routine senna-docusate (Pericolace) 8.6-50 mg per Given 2021 8:32 AM EDT 2 tablets tablet 2 tablet 2 tablet, Oral, 2 TIMES DAILY, First dose on Fri11/19/21 at 0000, Until Discontinued, Ok to refuse if having normal BM's, Routine Given 11/26/2021 9:10 AM EDT 2 tablets Given 11/24/2021 9:00 AM EDT 2 tablets sodium chloride 0.9 % (flush) (BD PosiFlush Given 11/29/2021 9:3 0 AM EDT 5 mLs Normal Saline 0.9) flush 5 mL 5 mL, Intravenous, 2 TIMES DAILY, First dose on Fri11/19/21 at 0000, Until Discontinued, Routine Given 11/28/2021 10:09 PM EDT 5 mLs Given 11/28/2021 8:22 AM EDT 5 mLs thiamine (Vitamin B1) tablet 100 mg Given 11/29/2021 9:29 AM EDT 100 mg 100 mg, Oral, DAILY, First dose on Fri11/20/21 at 1700, Until Discontinued, Routine Given 11/28/2021 8:17 AM EDT 100 mg Given 11/27/2021 8:31 AM EDT 100 mg vancomycin (Vancocin) 1.25 gram New Bag 11/22/2021 11:41 AM ED T 1,250 mg 200 mL/hr in sodium chloride 0.9% 250 mL infusion 1,250 mg, Intravenous, EVERY 12 HOURS, First dose (after last modification) on Christina 11/22/21 at 1100, Until Discontinued, Administer over 75 Minutes, Maximum infusion rate is 1 gram/hour. If flushing of the face, neck, upper body, arms, and/or back occurs decrease infusion rate by 50% to reduce the severity of symptoms. This medication may have an associated drug lab level. Please see MAR for scheduled level. Warning Vesicant/Irritant Medication , Indication for (Active or Suspected): Skin/Skin Structure vancomycin (Vancocin) 1.5 gram in New Bag 11/21/2021 9:00 PM E DT 1.5 g 333.3 mL/hr sodium chloride 0.9% 500 mL infusion 1.5 g, Intravenous, EVERY 12 HOURS, First dose on Fri11/19/21 at 0900, Until Discontinued, Administer over 90 Minutes, Maximum infusion rate is 1 gram/hour. If flushing of the face, neck, upper body, arms, and/or back occurs decrease infusion rate by 50% to reduce the severity of symptoms. This medication may have an associated drug lab level. Please see MAR for scheduled level. Warning Vesicant/Irritant Medication , Indication for (Active or Suspected): Skin/Skin Structure New Bag 11/21/2021 9:03 AM EDT 1.5 g 333.3 mL/hr New Bag 11/20/2021 8:41 PM EDT 1.5 g 333.3 mL/hr documented in this encounter Active and Recently Administered Medications Times are shown in EDT. Scheduled Medication Order 11/27/2021 11/28/2021 11/29/2021 acetaminophen (Tylenol) tablet 650 mg 1124 (Given - Pr ovider: Amy Yates LPN)1736 (Given - Provider: Carissa Cordova RN) 0031 (Given - Provider: Claudia Long, VINCENT)0616 (Given - Provider: Claudia Long, RN)1206 (Given - Provider: Malinda Díaz, RN)1753 (Given - Provider: Malinda Díaz, RN) 0013 (Given - Provider: Sienna Cardenas, RN)0628 (Given - Provider: Sienna Cardenas, RN)1133 (Given - Provider: Bernice Coronel, RN) 650 mg, Oral, EVERY 6 HOURS SCHEDULED, F irst dose (after last modification) on Fri11/27/21 at 1200, Until Discontinued, Administer for temperature greater than or equal to 38.2 degrees celsius. Maximum daily dose of acetaminophen from all [facility] not to exceed 4,000 mg. When ordered for pain, acetaminophen should be given even when other ordered pain medications are indicated., Routine busPIRone (Buspar) tablet 15 mg 0832 (Given - Provider : Amy Yates LPN)2058 (Given - Provider: Bridgette Cho RN) 08 (Given - Provider: Malinda Díaz RN)220 (Given - Provider: Sienna Cardenas, VINCENT) 0929 (Given - Provider: Bernice Coronel, VINCENT) 15 mg, Oral, 2 TIMES DAILY, First dose o n Fri11/19/21 at 0015, Until Discontinued, Routine camphor-methyl salicyl-menthoL (Bengay Ultra Strength) 4-30-10 % cream 0900 (Not Given - Provider: Amy Yates LPN - Reason: Patient/family refused)2100 (Not Given - Provider: Bridgette Cho RN - Reason: Patient/family refused) 0819 (Not Given - Provider: Malinda ramos RN - Reason: Patient/family refused)2100 (Not Given - Provider: Sienna Cardenas RN - Reason: Patient/family refused) 0900 (Not Given - Provider: Bernice turner RN - Reason: Patient/family refused) Topical (Top), 2 TIMES DAILY, First dose on Fri11/24/21 at 0015, Until Discontinued, Application Site: back DAPTOmycin (Cubicin) 700 mg in sodium chloride 0.9% 64 mL 1611 (New Bag - Provider: Carissa Cordova RN - Comment: off to get picc)1641 (Stopped - Provider: Carissa Cordova RN) 1609 (New Bag - Provider: Malinda giang RN)1639 (Stopped - Provider: Malinda Díaz RN) 1428 (New Bag - Provider: Bernice Coronel, VINCENT)1458 (Stopped - Provider: Bernice Coronel RN) 700 mg, Intravenous, EVERY 24 HOURS, Fir st dose on Fri11/27/21 at 1430, Until Discontinued, Administer over 30 Minutes, Indication for (Active or Suspected): Bone/Joint, Restricted Antibiotic: Please in dicate the most appropriate choice: ID Approval by Donal Serrano enoxaparin (Lovenox) (40 mg/0.4 mL) subcutaneous injec tion 40 mg 2058 (Given - Provider: Bridgette Cho, VINCENT) 220 (Given - Provider: Sienna Cardenas RN) 40 mg, Subcutaneous, NIGHTLY, First dose on Fri11/19/21 at 2100, Until Discontinued, Routine ertapenem (INVanz) 1 g vial attach to sodium chloride 0.9% 100 mL Mini-Bag Plus 1440 (New Bag - Provider: Carissa Cordova RN)1510 (Stopped - Provider: Carissa Cordova RN) 0834 (New Bag - Provider: Malinda giang RN)0904 (Stopped - Provider: Malinda Díaz RN) 0928 (New Bag - Provider: Bernice Coronel RN)1002 (Stopped - Provider: Bernice Coronel RN) 1 g, Intravenous, DAILY, First dose on 11/27/21 at 1400, Until Discontinued, Administer over 30 Minutes, Indication for (Active or Suspected): Bone/Joint, Restricted Antibiotic: Please indicate the most appropriate choice: ID Approval by Donal Serrano folic acid (Folvite) tablet 1,000 mcg 0831 (Given - Pr ovider: Amy Yates LPN) 0817 (Given - Provider: Malinda Díaz, VINCENT) 0928 (Gi mita - Provider: Bernice Coronel, VINCENT) 1,000 mcg, Oral, DAILY, First dose on 11/20/21 at 1700, Until Discontinued, Routine furosemide (Lasix) tablet 80 mg 0832 (Given - Provider: Anupama Yates LPN) 0817 (Given - Provider: Malinda Díaz RN) 0929 (Given - Provider: Bernice Coronel, VINCENT) 80 mg, Oral, DAILY, First dose on Fri at 1015, Until Discontinued, Routine gabapentin (Neurontin) capsule 600 mg 0831 (Given - Pr ovider: Amy Yates LPN)1414 (Given - Provider: Carissa Cordova RN)2059 (Given - Provider: Bridgette Cho, VINCENT) 0816 (Given - Provider: Malinda Díaz , VINCENT)1549 (Given - Provider: Malinda Díaz RN)2207 (Given - Provider: Sienna Cardenas RN) 0929 (Given - Provider: Bernice Coronel, VINCENT)1428 (Given - Provider: Bernice Coronel, VINCENT) 600 mg, Oral, 3 TIMES DAILY, First dose on Fri11/19/21 at 0900, Until Discontinued, Routine hydrALAZINE (Apresoline) (20 mg/mL) injection 5 mg (CO MPLETED) 0434 (Given - Provider: Bridgette Cho, VINCENT) 5 mg, Intravenous, ONCE, 1 dose, On Fri11/27/21 at 0445 ipratropium-albuteroL (Duoneb) 0.5 mg-3 mg(2.5 mg base)/3 mL nebulizer solution 3 mL 0600 (Not Given - Provider: Bridgette andrews RN - Reason: Order parameters not met - Comment: Pt sleeping)1124 (Given - Provider: Amy Yates LPN)1736 (Given - Provider: Carissa Cordova, VINCENT) 0600 (Not Given - Provider: Malinda Díaz RN - Reason: Patient/family refused)1206 (Given - Provider: Malinda Díaz RN)1754 (Given - Provider: Malinda Díaz, VINCENT) 0600 (Not Given - Provider: Sienna Cardenas RN - Reason: Patient/family refused)1200 (Not Given - Provider: Bernice Coronel RN - Reason: Patient/family refused) 3 mL, Nebulization, EVERY 6 HOURS WHILE AWAKE, First dose on Fri11/19/21 at 0600, Until Discontinued, Routine lactobacillus with pectin capsule 1 capsule 1753 (Given - Provider: Malinda Díaz RN) 0928 (Given - Provider: Donna Ramsey) 1 capsule, Oral, DAILY, First dose on 11/28/21 at 1815, Until Discontinued, Routine lisinopriL (Zestril) tablet 40 mg 0832 (Given - Provid er: Amy Yates LPN) 0816 (Given - Provider: Malinda Díaz RN) 0928 (Gi mita - Provider: Bernice Coronel, VINCENT) 40 mg, Oral, DAILY, First dose on 05/02 at 1530, Until Discontinued, Hold for SBP <90, Routine loperamide (Imodium A-D) capsule 2 mg (COMPLETED) 175 (Given - Provider: Malinda Díaz RN) 2 mg, Oral, ONCE, 1 dose, On Fri11/28/21 at 1815, Do not exceed 16 mg/day., Routine LORazepam (Ativan) tablet 0.5 mg (COMPLETED) 1336 (Given - Provider: Bernice Coronel, VINCENT) 0.5 mg, Oral, ONCE, 1 dose, On Fri11/29/21 at 1415, Routine methadone (Dolophine) (10 mg/mL) oral liquid 45 mg 1100 (Given - Provider: Bernice Coronel, VINCENT) 45 mg, Oral, DAILY, First dose on Fri at 1030, Until Discontinued, Liquid methadone should be used to avoid diversion, and a mouth check should be performed after each dose., Routine methadone (Methadose) (2 mg/mL) oral liquid 15 mg (CAN CELED) 1518 (Given - Provider: Jennifer De RN)2147 (Given - Provider: Bridgette Cho, VINCENT) 0820 (Given - Provider: Malinda Díaz, VINCENT) 15 mg, Oral, 2 TIMES DAILY, First dose ( after last modification) on Fri11/27/21 at 1445, Until Discontinued, Liquid methadone should be used to avoid diversion, and a mouth check should be performed after each dose., STAT methadone (Methadose) (2 mg/mL) oral liquid 30 mg (COMPLETED ) 1400 (Given - Provider: Malinda Díaz, VINCENT) 30 mg, Oral, ONCE, 1 dose, On Fri 2 at 1330, Liquid methadone should be used to avoid diversion, and a mouth check should be performed after each dose., STAT metoprolol succinate XL (Toprol-XL) tablet 150 mg 0831 (Given - Provider: Amy Yates LPN) 0818 (Given - Provider: Malinda Díaz, VINCENT) 0928 (Gi mita - Provider: Bernice Coronel, VINCENT) 150 mg, Oral, DAILY, First dose on Fri at 0945, Until Discontinued, DO NOT CRUSH OR OPEN, Routine metroNIDAZOLE (Flagyl) tablet 500 mg (CANCELED) 0831 ( Given - Provider: Amy Yates LPN) 500 mg, Oral, 3 TIMES DAILY, First dose on Fri11/23/21 at 1645, Until Discontinued, Routine mirtazapine (Remeron) tablet 30 mg 2058 (Given - Provi angie: Bridgette Cho, VINCENT) 2206 (Given - Provider: Sienna Cardenas RN) 30 mg, Oral, NIGHTLY, First dose on Fri11/19/21 at 0015, Until Discontinued, Routine nicotine (Nicoderm CQ) 21 mg/24 hr patch 21 mg(Linked Group 1) 0832 (Patch Applied - Provider: Amy Yates LPN) 0838 (Patch Applied - Provider: Malinda Díaz RN) 0945 (Patch Applied - Provider: Bernice CoronelVINCENT) 21 mg (1 patch), Transdermal, DAILY, Fir st dose on Fri11/19/21 at 0900, Until Discontinued, Apply new patch to nonhairy, clean, dry skin on the upper body or upper outer arm; each patch should be applied to a different site , Routine nicotine (NICODERM CQ) 21 mg/24 hr patch Patch Removal (Linked Group 1) 0900 (Patch Removed - Provider: Amy Yates LPN) 08 (Patch Removed - Provider: Malinda Díaz RN) 09 (Patch Removed - Provider: Bernice Coronel RN) Transdermal, DAILY, First dose on 04/02 at 0900, Until Discontinued, Remove nicotine 21 mg/24 hr patch nicotine (NICODERM CQ) 21 mg/24 hr patch Patch Verific ation(Linked Group 1) 09 (Patch (dose and location) verified - Provider: Amy Yates LPN)2099 (Patch (dose and location) verified - Provider: Bridgette Cho RN) 08 (Patch (dose and location) verified - Provider: Malinda Díaz RN)2099 (Patch (dose and location) verified - Provider: Sienna Cardenas RN) 09 (Patch (dose and location) verified - Provider: Bernice Coronel RN) Transdermal, 2 TIMES DAILY, First dose o n Fri11/19/21 at 0800, Until Discontinued, Verify nicotine 21 mg/24 hr patch pantoprazole EC (Protonix) tablet 40 mg 0832 (Given - Provider: Amy Yates LPN)2058 (Given - Provider: Bridgette Cho RN) 08 (Given - Provider: Malinda Díaz RN)220 (Given - Provider: Sienna Cardenas RN) 0929 (Given - Provider: Bernice Coronel, VINCENT) 40 mg, Oral, 2 TIMES DAILY, First dose o n Fri11/19/21 at 0000, Until Discontinued, DO NOT CRUSH OR OPEN, Routine potassium chloride 10 mEq in sterile water 100 mL infusion ( COMPLETED) 0440 (New Bag - Provider: Claudia Long RN)0617 (Stopped - Provider: Claudia Long RN)0618 (New Bag - Provider: Claudia Long, VINCENT)0746 (Stopped - Provider: Malinda Díaz RN)0823 (New Bag - Provider: Malinda Díaz RN) 10 mEq, Intravenous, EVERY 2 HOURS, 3 do ses, First dose on Fri11/28/21 at 0500, Last dose on Fri11/28/21 at 0900, Administer over 60 Minutes, Warning Vesicant/Irritant Medication 0923 (Stopped - Provid er: Malinda Díaz RN) potassium chloride ER (K-Dur/Klor-Con) tablet 40 mEq (COMPLE LUL) 0439 (Given - Provider: Claudia Long, VINCENT) 40 mEq, Oral, ONCE, 1 dose, On Fri at 0500, 20 mEq tablet may be dissolved in water for administration, Routine senna-docusate (Pericolace) 8.6-50 mg per tablet 2 tab let (CANCELED) 0832 (Given - Provider: Amy Yates LPN) 2 tablet, Oral, 2 TIMES DAILY, First dos e on Fri11/19/21 at 0000, Until Discontinued, Ok to refuse if having normal BM's, Routine sodium chloride 0.9 % (flush) (BD PosiFlush Normal Nile ine 0.9) flush 5 mL 0900 (Hold - Provider: Carissa Cordova RN - Reason: See comment - Comment: not the primary at thie time. will flush with abxs)2101 (Given - Provider: Bridgette Cho RN) 08 (Given - Provider: Malinda Díaz RN)2208 (Given - Provider: Sienna Cardenas RN) 09 (Given - Provider: Donna Ramsey) 5 mL, Intravenous, 2 TIMES DAILY, First dose on Fri11/19/21 at 0000, Until Discontinued, Routine thiamine (Vitamin B1) tablet 100 mg 0831 (Given - Prov ider: Amy Yates LPN) 0817 (Given - Provider: Malinda Díaz RN) 0929 (Gi mita - Provider: Bernice Coronel RN) 100 mg, Oral, DAILY, First dose on Fri at 1700, Until Discontinued, Routine PRN Medication Order 11/27/2021 11/28/2021 11/29/2021 acetaminophen (Tylenol) tablet 650 mg (CANCELED) 0428 (Given - Provider: Bridgette Cho RN) 650 mg, Oral, EVERY 6 HOURS PRN, Startin g on Fri11/18/21 at 2202, Until Fri11/27/21 at 1114, Pain, Fever, Administer for temperature greater than or equal to 38.2 degrees celsius. Maximum daily dose of acetaminophen from all sources not to ex ceed 4,000 mg. When ordered for pain, acetaminophen should be given even when other ordered pain medications are indicated., Routine albuteroL (Proventil) nebulizer solution 2.5 mg 2.5 mg, Nebulization, EVERY 4 HOURS PRN, Starting on Fri11/18/21 at 2148, Until Fri11/29/21 at 2005, Wheezing, Shortness of Breath, not controlled with scheduled duonebs, Routine cyclobenzaprine (Flexeril) tablet 5 mg 192 (Given - P rovider: Bridgette Cho RN) 5 mg, Oral, 3 TIMES DAILY PRN, Starting on Fri11/27/21 at 1855, Until Fri11/29/21 at 2005, Muscle spasms, Routine hydrALAZINE (Apresoline) (20 mg/mL) injection 5 mg 5 mg, Intravenous, EVERY 6 HOURS PRN, St arting on Fri11/28/21 at 0837, Until Fri11/29/21 at 2005, High Blood Pressure, SBP > 180 HYDROmorphone (Dilaudid) (0.5 mg/0.5 mL) injection syr mejia 1 mg (CANCELED) 0249 (Given - Provider: Bridgette Cho RN) 1 mg, Subcutaneous, EVERY 3 HOURS PRN, S tarting on Fri11/25/21 at 1838, Until Fri11/27/21 at 1121, Pain, severe pain (7-10), Please hold for somnolence, Routine HYDROmorphone (Dilaudid) tablet 1 mg(Linked Group 2) 1 736 (See Alternative - Provider: Carissa Cordova RN) 0045 (See Alternative - Provider: Angelica Pat RN) 1 mg, Oral, EVERY 4 HOURS PRN, Starting on Fri11/27/21 at 1420, Until Fri11/29/21 at 2005, Pain, for mild pain (1-3), May give an additional 2 mg once if pain not relieved in 30-60 minutes., Routine HYDROmorphone (Dilaudid) tablet 2 mg(Linked Group 2) 1 736 (See Alternative - Provider: Carissa Cordova, VINCENT) 0045 (Given - Provider: Angelica perez RN) 2 mg, Oral, EVERY 4 HOURS PRN, Starting on Fri11/27/21 at 1420, Until Fri11/29/21 at 2005, Pain, for moderate pain (4-6), May give an additional 2 mg once if pain not relieved in 30-60 minutes., Routine HYDROmorphone (Dilaudid) tablet 4 mg(Linked Group 2) 1 736 (Given - Provider: Carissa Cordova RN) 0045 (See Alternative - Provider: Angelica Pat RN) 4 mg, Oral, EVERY 4 HOURS PRN, Starting on Fri11/27/21 at 1420, Until Fri11/29/21 at 2005, Pain, for severe pain (7-10), May give an additional 2 mg once if pain not relieved in 30-60 minutes., Routine hydrOXYzine (Atarax) tablet 25 mg 1607 ( Given - Provider: Malinda Díaz RN) 25 mg, Oral, DAILY PRN, Starting on Fri11/27/21 at 1130, Until Fri11/29/21 at 2005, Anxiety, Routine lidocaine (Xylocaine) 1% (10 mg/mL) injection 3 mg 3 mg (0.3 mL), Subcutaneous, ONCE PRN, 1 dose, Starting on Fri11/18/21 at 2259, Until Fri11/29/21 at 2005, for discomfort with PIV insertion, Routine melatonin tablet 3 mg 3 mg, Oral, NIGHTLY PRN, Starting on Fri11/18/21 at 2259, Until Fri11/29/21 at 2005, Sleep, Routine midazolam (pf) (Versed) (1 mg/mL) injection 1 mg 1 mg, Intravenous, EVERY 5 MIN PRN, Star ting on Fri11/21/21 at 1431, Until Fri11/29/21 at 2005, Other, sedation or prior to injection of local anesthetic, Hold for delirium/agitation. (Maximum dose 5 mg)., Routine polyethylene glycoL (Miralax) packet 17 g 17 g, Oral, DAILY PRN, Starting on Fri at 1113, Until Fri11/29/21 at 2005, Constipation, Routine sodium chloride 0.9 % (flush) (BD PosiFlush Normal Saline 0.9) f lush 5-20 mL 5-20 mL, Intravenous, EVERY 1 MIN PRN, S tarting on Fri11/18/21 at 2259, Until Fri11/29/21 at 2005, flush, Flush pertains to all indwelling lines. Flush per protocol found in the job aid using the link provided on this medication record., Routine Linked Groups Order Group 1: nicotine (Nicoderm CQ) 21 mg/24 hr patch 21 mgJump to med 21 mg (1 patch), Transdermal, DAILY, Fir st dose on Fri11/19/21 at 0900, Until Discontinued
Apply new patch to nonhairy, clean, dry skin on the upper body or upper outer arm; each patch should be applied to a different site
Routine And nicotine (NICODERM CQ) 21 mg/24 hr patch Patch VerificationJump to med Transdermal, 2 TIMES DAILY, First dose o n Fri11/19/21 at 0800, Until Discontinued
Verify nicotine 21 mg/24 hr patch
And nicotine (NICODERM CQ) 21 mg/24 hr patch Patch RemovalJump to med Transdermal, DAILY, First dose on 04/02 at 0900, Until Discontinued
Remove nicotine 21 mg/24 hr patch
Group 2: HYDROmorphone (Dilaudid) tablet 1 mgJump to med 1 mg, Oral, EVERY 4 HOURS PRN, Starting on Fri11/27/21 at 1420, Until Fri11/29/21 at 2005, Pain, for mild pain (1-3)
May give an additional 2 mg once if pain not relieved in 30-60 minutes.
Routine Or HYDROmorphone (Dilaudid) tablet 2 mgJump to med 2 mg, Oral, EVERY 4 HOURS PRN, Starting on 11/27/21 at 1420, Until Christina 11/29/21 at 2005, Pain, for moderate pain (4-6)
May give an additional 2 mg once if pain not relieved in 30-60 minutes.
Routine Or HYDROmorphone (Dilaudid) tablet 4 mgJump to med 4 mg, Oral, EVERY 4 HOURS PRN, Starting on Fri11/27/21 at 1420, Until Christina 11/29/21 at 2005, Pain, for severe pain (7-10)
May give an additional 2 mg once if pain not relieved in 30-60 minutes.
Routine documented in this encounter Additional Health Concerns Infection Onset Date Last Indicated Resolved Time Rule Out C. difficile 11/26/2021 11/26/2021 11/27/2021 2:30 PM EDT documented as of this encounter Care Teams Neuro Ophthalmologist Relationship Specialty Start Date End Date Brian Fall APRN PCP - General Internal Medicine [birth year][address] [place] [id number] documented as of this encounter
--- OUTSIDE RECORDS SUMMARY | 2021-11-30 08:15 | XMS_ITS | Clinical Summary ---
:1955 Author Organization [facility] [place] [address] Care Team Providers Name Role Phone Brian Fall APRN Primary Care Provider Allergies Active Allergy Reactions Severity Noted Date Comments Morphine Other (See Comments) High 06/13/2015 STATES THAT IT DOES NOT TAKE HIS PAIN AWAY Medications Medication Sig Dispensed Refills Start Date End Date Status multivitamin Take 1 tablet by 0 08/21/2012 Active (THERAGRAN) tablet mouth daily. meTOPROLOL succinate Take 100 mg by 0 07/25/2016 Active (TOPROL-XL) 100 mg mouth daily. (In Tablet Sustained addition 50mg Release 24 hr tab, total dose: 150mg daily) furosemide (Lasix) 40 Take 80 mg by 0 Active mg Tablet mouth daily. buspirone HCl Take 30 mg by 0 Ac tive (BUSPIRONE ORAL) mouth 2 times daily. acetaminophen Take 650 mg 0 07/11/2019 Act bg (Tylenol) 325 mg every 4 hours by Tablet oral route as needed. lisinopriL Take 1 tablet by 90 tablet 3 03/15/2020 A ctive (Prinivil;Zestril) 40 mouth daily. mg Tablet triamcinolone Apply twice 30 g 0 06/12/2020 Act bg (KENALOG) 0.1 % Cream daily to bilateral lower legs, times two weeks then off two week, repeat as needed. metoprolol succinate Take 50 mg by 0 07/13/2020 Active XL (Toprol-XL) 50 mg mouth daily. (In Tablet Sustained addition 100mg Release 24 hr tab, total dose: 150mg daily) pantoprazole EC Take 40 mg by 0 Active (Protonix) 40 mg mouth 2 times Tablet, Delayed daily. Release (E.C.) albuteroL 90 Inhale 2 puffs 1 each 08/15/2021 A ctive mcg/actuation HFA into the lungs Aerosol every 4 hours as InhalerIndications: needed for Stage 2 moderate COPD Wheezing. Use by GOLD classification with spacer gabapentin (Neurontin) Take 600 mg by 0 09/29/2021 Active 300 mg Capsule mouth 3 times daily. mirtazapine (REMERON) Take 30 mg by 0 11/16/2021 Active 30 mg Tablet mouth nightly. ertapenem (INVanz) 1 Inject 1 g as 300 mL 1 11/29/202112/11 Active gram Recon Soln directed daily for 38 days. DAPTOmycin (Cubicin) 700 mg daily 0 11/29/202101/06 Active 500 mg Recon Soln through 01/06 folic acid (Folvite) 1 Take 1 tablet by 30 tablet 0 11/30/2021 Active mg Tablet mouth daily. methadone (Dolophine) Take 4.5 mLs by 0 11/30/2021 Active 10 mg/mL Concentrate mouth daily. cyclobenzaprine Take 1 tablet by 15 tablet 0 11/29/2021 Active (Flexeril) 5 mg Tablet mouth 3 times daily as needed for Muscle spasms. thiamine (Vitamin B1) Take 1 tablet by 30 tablet 0 11/30/2021 Active 100 mg mouth daily. Active Problems Patient Care Coordination Note Formatting of this note might be differe nt from the original. Failed Opioid Agreement( signed 01/05/13 ) with [facility] Urine drug screen 03/02/13 negative for methadone and ritalin and inconsistent amount Valium based on dosing 03/17/13: Patient to receive no Opiates,R italin,Benzodiazepines or other narcotics from [facility] Unable to recieve Primary Care in [facility] ([facility]). Refer to letter dated 03/29/13 Problem Noted Date Alcohol withdrawal syndrome, with delirium 11/20/2021 S/p right great toe amp, I&D, vac 11/18/21 (Samuel) 11/09 Necrotizing soft tissue infection 11/18/2021 Cellulitis of right foot 09/05/2021 Acute osteomyelitis of right foot 05/14/2021 Tightness of right gastrocnemius muscle 12/11/2020 Edema of both lower extremities due to peripheral veno us insufficiency 11/02/2020 Pruritic rash 08/22/2020 Functional gait abnormality 06/29/2020 Noncompliance with treatment 06/29/2020 Tobacco dependence syndrome 06/29/2020 Chronic foot ulcer 06/29/2020 Cellulitis 06/07/2020 Tobacco user 04/11/2020 Osteomyelitis 03/09/2020 Neuropathic ulcer of toe of right foot with fat layer exposed 01/06/2020 Neuropathic ulcer of foot, right, with fat layer expos ed 11/11/2019 Nausea 10/24/2019 Fatigue 09/07/2019 Patient has active durable power of state's attorney (DPOA) de signee for 05/29/2019 healthcare Methadone dependence 07/22/2018 Minimal cognitive impairment 06/08/2018 Claustrophobia 02/13/2018 Hyperlipidemia 05/22/2017 Avascular necrosis of humeral head 08/22/2016 Overview: right Pain in left shoulder 08/22/2016 Verruca plantaris 02/22/2016 Gastroesophageal reflux disease 08/17/2015 Cirrhosis 08/09/2015 Overview: ?? viral load (02/16) 234,000 IU/ml; gen otype:2b ?? unclear when acquired ?? viral relapse after 48 weeks of treat ment with peg and ribavirin ?? Liver biopsy- (07/18): ---Pathologic D iagnosis--- Liver, needle biopsy specimen showing changes consistent with chronic hepatitis C, stage 3-4/4, grade 2/4 (mild activity); and concomitant severe alco holic/nonalcoholic steatohepatitis/steat ofibrosis Polysubstance abuse 05/26/2015 Overview: ?? Per referring Problem List - history of cocaine metabolites, suspicion of selling illicit substances in the past, and breaking pain contracts Avascular necrosis bilateral knees 04/11/2015 Depressive disorder 04/18/2014 Neuropathy 03/23/2014 Chronic obstructive lung disease 02/14/2014 Edema 06/16/2013 Essential hypertension 05/12/2013 Confusion 08/19/2012 Hepatitis C 09/06/2011 Overview: Genotype 2b Gout 08/10/2010 Alcohol dependence 03/11/2008 Anxiety 03/11/2008 ADHD NOS 03/11/2008 Chronic back pain 03/11/2008 Major depressive disorder, single episode, unspecified 03/11/2008 Resolved Problems Problem Noted Date Resolved Date Surgical wound breakdown, subsequent encounter 06/07/2020 08/22/2020 s/p L 4th ray amp for osteo, 03/10/2020 Gitajn 03/10/2020 08/22/2020 Cellulitis of leg, right 12/15/2019 05/09/2020 Neuropathic ulcer of foot, left, with fat layer exposed 06/201905/09/2020 SDH (subdural hematoma) 05/07/2019 08/22/2020 Hip pain 02/22/2016 08/22/2020 Knee pain 02/22/2016 08/22/2020 S/P L TKA 12/13/15 Dr. Mallory 12/13/2015 08/22/2020 Retention of urine 09/07/2015 08/22/2020 Ankle fracture, left 06/13/2015 08/22/2020 Community acquired pneumonia 08/19/2012 08/22/2020 Imbalance 08/19/2012 08/22/2020 Encounters Date Type Specialty Care Team Description 11/29/2021 Notes Only Care Management Zbigniew Choudhury RN 11/25/2021 Anesthesia Event Surgery Laxmi Uribe MD Damron, Joseph M, MD 11/25/2021 Surgery Surgery Jarad Flores MD DEBRIDEMEN T SKIN, SUBCU, MUSCLE, BONE, LOWER EXTREMITY (WRVU 4.1) 11/23/2021 Anesthesia Event Surgery Jeremías Bergman MD Spence, Brian C, MD 11/23/2021 Surgery Surgery Jarad Flores MD AMPUTATION , TRANSMETATARSAL TOE, ONE TOE (WRVU 6 .64) 11/21/2021 Surgery Surgery Sadie Romero, Not Perfo rmed MD BARBA SKI N, SUBCU, MUSCLE, BONE, LOWER EXTREMITY (WRVU 4.1) 11/21/2021 Anesthesia Event Surgery Jeremías Bergman MD Duprat, Chloe N, MD 11/18/2021 Surgery Surgery Sammy Baker W, AMPUTATION T MD SARI METATARSO-PHALA NGEAL JOINT (WRVU 5.8 2) 11/18/2021 Anesthesia Event Surgery Spencer Bowen M D Fritts, Nathan G, MD 11/18/2021 Hospital Encounter Aubree Jimenez Necro tizing fasciitis (Primary Dx); Tevin Foreman MD Necrotic toes; 11/29/2021 Valentina Montoya L, Cellulitis of leg, right; Essential hypertension; Afshin Rogers, Chronic foot ulcer, unspecified laterality, unspecified ulcer stage; QT prolongation; Juan, Osteomyelitis o f great toe of right foot; Jennifer Eason MD Diabetic inf ection of right foot; Coagulase-negat bg staphylococcal infection; Sequela of Esa nebacterium infection; Bacteroides inf ection; Proteus mirabil is infection; Infection due t o species of Streptococcus milleri group; Cellulitis of f oot, right; Acute osteomyel itis of right foot; S/p right great toe amp, I&D, vac 11/18/21 (Samuel) 11/18/2021 Telephone Orthopaedics Alis Dowling MD 11/18/2021 Interpretation Only Spencer Winn MD from Last 3 Months Immunizations Name Administration Dates Next Due Hep A/Hep B 02/14/2010, 08/11/2009, 07/11/2009 Influenza PF, Split 03/07/2011 Influenza Vaccine, Whole 03/04/2008, 05/21/2007 Pfizer Covid-19 (Purple Cap) Vaccine 03/26/2021, 03/05/2021 (12yrs+) Pneumococcal Polyvalent 23 02/11/2012 Tdap Vaccine 02/11/2012 Family History Medical History Relation Comments Cancer Father Osteoarthritis Mother Cancer Paternal Grandmother Cancer Paternal Uncle Relation Status Comments Father Mother Alive Paternal Grandmother Paternal Uncle Social History Tobacco Use Types Packs/Day Years Used Date Current Every Day Smoker Cigars, Cigarettes 1 42 Smokeless Tobacco: Never Used Tobacco Cessation: Ready to Quit: Yes Comments: a pack or less a day Alcohol Use Standard Drinks/Week Comments Yes 22 (1 standard drink = 0.6 oz pure alcoh ol) Sex Assigned at Date Recorded Not on file Last Filed Vital Signs Vital Sign Reading [...] Mass Index 30.21 11/20/2021 3:51 PM EDT Plan of Treatment Upcoming Encounters Date Type Specialty Care Team Description 12/11/2021 Appointment Radiology 12/11/2021 Office Visit Orthopaedics Marion Tavera APRN [facility] DR ORTHOPAEDIC SURG [place], [place] [address] (Wo rk) 01/15/2022 Appointment Radiology Stiven Cervantes MD [facility] Pulmonary Medici [place], [place] [address] (Wo rk) Scheduled Procedures Name Priority Associated Diagnoses Date/Time DEBRIDEMENT SKIN, SUBCU, MUSCLE, R great toe amp utation, wound LOWER EXTREMITY (WRVU 2.7) closure MODIFIER WOUND VAC R great toe amputation, wound closure Health Maintenance Due Date Last Done Comments Zoster vaccine (1 of 2) 08/24/2003 Advance Directive 2008 Pneumoccocal Vaccine: 65+ (2 - 02/10/2013 02/11/2012 PCV) Colonoscopy 08/12/2017 08/13/2007 (See prior EHR) AAA Screen 2018 Covid-19 Vaccine (3 - Booster for 08/24/2021 03/26/2021, Pfizer series) Influenza (Flu) vaccine (1 of 1 - 01/10/2022 03/07/2011, , Influenza standard series) 05/21/2007 Tetanus vaccine 02/10/2022 02/11/2012 Lipid Screening 12/29/2023 12/28/2018, 11/08/2010 Diabetes Screening (HgbA1C or 11/29/2024 11/29/2021, 2021, Glucose) 11/26/2021, Additional history exists Tdap adult Completed 02/11/2012 Goals Goal Patient Goal Associated Recent Patient-Stated? Author Type Problems Progress DH Home Medication Patient On track No Ryan, Compliance and Facing (07/31/2016 Julia Esquivel, Understanding Action Plan 9:07 AM EDT) [facility] Note: Formatting of this note might be d ifferent from the original. Patient Goal: To experience less side ef fects than his past regimen of Peg and Ribavirin Timeframe to meet goal: 3 months of ther apy Medical Devices Implanted Type Area Pleating Machine Operator Device Shelf Model / Identifier Expiration Serial / Date Lot Inser,Pfc,Sgm,Tc3,Tib,Sz3,12.5 ([id number]) ([employer]) - [id number] IMPLANTS Left: DO NOT USE Depuy 09/08/2017 [id number] / Implanted: Qty: 1 on 12/13/2015 by Gordon Mallory MD at [facility] Knee Cargo Agent - / [id number] Procedures Procedure Name Priority Date/Time Associated Diagnosis Comme nts SCAN DOC: TELEMETRY 11/29/2021 3:53 STRIPS PM EDT EKG 12-LEAD Routine 11/29/2021 1:02 QT prolongation Results f or this PM EDT procedure are i n the results section. SCAN DOC: TELEMETRY 11/29/2021 5:05 STRIPS AM EDT DIFFERENTIAL, AUTOMATED Routine 11/29/2021 3:40 R esults for this AM EDT procedure are i n the results section. HEMOGRAM Routine 11/29/2021 3:40 Results for this AM EDT procedure are i n the results section. BASIC METABOLIC PANEL Routine 11/29/2021 3:40 Res ults for this (NON-FASTING) AM EDT procedure are in the results section. HC CBC,PLT & AUTO DIFF Routine 11/29/2021 3:40 AM EDT HC POTASSIUM Routine 11/28/2021 6:30 Results for this PM EDT procedure are i n the results section. SCAN DOC: TELEMETRY 11/28/2021 4:42 STRIPS PM EDT SCAN DOC: TELEMETRY 11/28/2021 4:42 STRIPS AM EDT MAGNESIUM Routine 11/28/2021 3:15 Results [...] procedure are in the results section. HC CBC,PLT & AUTO DIFF Routine 11/28/2021 3:15 AM EDT SCAN DOC: TELEMETRY 11/27/2021 4:[address] PICC LINE: Routine 11/27/2021 4:03 Results [...] procedure are i n the results section. MAGNESIUM Routine 11/26/2021 6:56 Results for this [...] procedure are in the results section. HC CBC,PLT & AUTO DIFF Routine 11/26/2021 6:56 AM EDT SCAN DOC: TELEMETRY 11/25/2021 9:39 STRIPS AM EDT AMPUTATION, Routine 11/25/2021 9:20 TRANSMETATARSAL AM EDT ANAEROBIC CULTURE Routine 11/25/2021 9:00 Results for this AM EDT procedure are i n the results section. TISSUE CULTURE Routine 11/25/2021 9:00 Results fo r this AM EDT procedure are i n the results section. HC TISSUE CULTURE Routine 11/25/2021 9:00 AM EDT AMPUTATION, 11/25/2021 8:26 osteomyelitis of TRANSMETATARSAL (WRVU [...] the results section. HC PHOSPHORUS, SERUM Routine 11/23/2021 4:28 Resu lts for this PM EDT procedure are i n the results section. BASIC METABOLIC PANEL Routine 11/23/2021 4:28 Res ults for this (NON-FASTING) PM EDT procedure are in the results section. HC CBC,PLT & AUTO DIFF Routine 11/23/2021 4:28 PM EDT SCAN DOC: TELEMETRY 11/23/2021 1:54 STRIPS PM EDT AMPUTATION, Routine 11/23/2021 1:52 TRANSMETATARSAL TOE, PM [...] 11/23/2021 1:06 HOMOGENIZATION FOR PM EDT CULTURE ANESTHESIA BLOCK Routine 11/23/2021 12:40 Results for this PM EDT procedure are [...] procedure are i n the results section. ANESTHESIA BLOCK Routine 11/21/2021 2:40 Results for this PM EDT procedure are i n the results section. HC PHOSPHORUS, SERUM Routine 11/21/2021 8:38 Resu [...] procedure are in the results section. HC CBC,PLT & AUTO DIFF Routine 11/21/2021 8:38 AM EDT HC PHOSPHORUS, SERUM Routine 11/20/2021 6:22 Resu [...] the results section. BASIC METABOLIC PANEL Routine 11/20/2021 4:59 Res ults for this (NON-FASTING) AM EDT procedure are in the results section. HC VENIPUNCTURE Routine 11/20/2021 4:59 AM EDT DEBRIDEMENT SKIN, Routine 11/19/2021 6:31 SUBCU, MUSCLE, BONE, AM EDT LOWER EXTREMITY DIFFERENTIAL, AUTOMATED Routine 11/19/2021 5:56 R esults for this AM EDT procedure are i n the results section. HEMOGRAM Routine 11/19/2021 5:56 Results for this AM EDT procedure are i n the results section. HC ESR-SEDIMENTATION Routine 11/19/2021 5:56 Resu lts for this RATE, BLOOD AM EDT procedure are i n the results section. BASIC METABOLIC PANEL Routine 11/19/2021 5:56 Res ults for this (NON-FASTING) AM EDT procedure are in the results section. HC VENIPUNCTURE Routine 11/19/2021 5:56 AM EDT SURGICAL PATHOLOGY Routine 11/18/2021 8:56 Result s [...] FOR Routine 11/18/2021 8:52 BACTERIA PM EDT ANAEROBIC CULTURE Routine 11/18/2021 8:52 Results for [...] FOR Routine 11/18/2021 8:52 BACTERIA PM EDT ANESTHESIA BLOCK Routine 11/18/2021 8:29 Results for this PM EDT procedure are i n the results section. AMPUTATION TOE, 11/18/2021 8:23 Right great toe METATARSO-PHALANGEAL PM EDT necrotic infection JOINT (WRVU 5.82) AMPUTATION TOE, Routine 11/18/2021 8:14 METATARSO-PHALANGEAL PM EDT JOINT CT LOWER EXTREMITY W STAT 11/18/2021 6:31 Resu lts for this CONTRAST RIGHT PM EDT procedure are in the results section. HEPATIC FUNCTION PANEL STAT 11/18/2021 5:25 Re sults for this PM EDT procedure are i n the results section. BASIC METABOLIC PANEL STAT 11/18/2021 5:25 Res ults for this (NON-FASTING) PM EDT procedure are in the results section. HC C-REACTIVE PROTEIN STAT 11/18/2021 5:25 Res ults for this PM EDT procedure are i n the results section. XR FOOT MIN 3 VIEWS STAT 11/18/2021 1:09 Resul ts for this RIGHT PM EDT procedure are i n the results section. from Last 3 Months Results SCAN DOC: TELEMETRY STRIPS (11/29/2021 3:53 PM EDT)Only the most recent of7 resultswithin the time period is included. Narrative This result has an attachment that is no t available. Unknown MEDIA MGR SCAN EXT ORDR/RSLT EKG 12 Lead (11/29/2021 1:02 PM EDT)Only the most recent of3 resultswithin the time period is included. Component Value Ref Range Test Analysis Performed Pathologis t Method Time At Signature Ventricular rate 90 BPM MUSE SYSTEM Atrial Rate 90 BPM MUSE SYSTEM P-R Interval 148 ms MUSE SYSTEM QRS Duration 76 ms MUSE SYSTEM Q-T Interval 404 ms MUSE SYSTEM QTC Calculated 494 ms MUSE SYSTEM (Bezet) Calculated P [place] 52 degrees MUSE SYSTEM Calculated R [place] 27 degrees MUSE SYSTEM Calculated T [place] 57 degrees MUSE SYSTEM INTERPRETATION Normal sinus rhythm with sinus arrhythmia MUSE SYSTEM borderline EKG When compared with ECG of 27-NOV-2021 11:44, Criteria for Inferior infarct are no longer Present I personally reviewed the tracing and edited the fellows int erpretation Confirmed by fellow MD Alexandra, Marco A ([id number]) on 022 3:05:39 PM Confirmed by Najma Ren ([id number]) on 11/29/2021 6:50:48 P M Specimen Anatomical Collection Method Collection Time Receive d Time (Source) Location / / Volume Laterality 11/29/2021 1:02 PM 6:50 EDT PM EDT Jennifer Martinez MD ECG ORDERABLES Performing Organization Address City/State/ZIP Code Phon e Number MUSE SYSTEM (ABNORMAL) Hemogram (11/29/2021 3:40 AM EDT)Only the most recent of7 results within the time period is included. Analysis Performed At Patho logist Time Signature WBC 12.5 (H) 4.0 - 9.5 [place] x10(3)/[facility] LABORATORY RBC 4.34 (L) 4.58 - [place] 5.54 [facility] x10(6)/[facility] LABORATORY Hemoglobin 13.9 13.7 - [place] 16.5 g/dL [facility] LABORATORY Hematocrit 41.3 40.5 - [place] 48.5 % [facility] LABORATORY MCV 95.2 (H) 82.9 - [place] 93.1 [facility] LABORATORY MCH 32.0 27.5 - [place] 32.1 pg [facility] LABORATORY MCHC 33.7 32.0 - [place] 35.7 g/dL [facility] LABORAT[facility] Platelets 494 (H) 145 - 357 [place] x10(3)/[facility] LABORATORY RDWSD 49.2 (H) 36.0 - [place] 45.0 [facility] LABORATORY RDWCV 14.2 (H) 11.4 - [place] 13.8 % [facility] LABORATORY MPV 9.5 7.6 - 12.9 [facility] LABORATORY nRBC % Auto 0.0 % [facility] LABORATORY nRBC Abs Auto 0.000 0.000 - [facility] 0.000 [facility] x10(3)/[facility] LABORATORY Specimen Anatomical Collection Method Collection Time Receive d Time (Source) Location / / Volume Laterality Blood 11/29/2021 3:40 AM 4:00 EDT AM EDT Resulting Agency Comment Spec In Lab NIEVES Peoples HEMATOLOGY ORDERABLES Performing Organization Address City/State/[place] [address] (ABNORMAL) Differential, Automated (11/29/2021 3:40 AM EDT)Only the most recent of7 resultswithin the time period is included. [facility] gist Method Time Signature Neutrophils % 62.4 % [facility] LABORATORY Neutr Abs (ANC) 7.80 (H) 1.70 - [facility] 6.10 [facility] x10(3)/[facility] LABORATORY Lymphocytes % 23.8 % [facility] LABORATORY Lymphocytes Abs 3.0 0.9 - 3.2 [facility] x10(3)/[facility] LABORATORY Monocytes % 6.0 % [facility] LABORATORY Monocyte Abs 0.8 0.3 - 0.9 [facility] x10(3)[facility] LABORATORY Eosinophils % 5.7 % [facility] LABORATORY Eosinophils Abs 0.7 (H) 0.0 - 0.4 [facility] x10(3)[facility] LABORATORY Basophils % 1.3 % [facility] LABORATORY Basophils Abs 0.2 (H) 0.0 - 0.1 [facility] x10(3)/[facility] LABORATORY Immature Gran % 0.80 % [facility] LABORATORY Comment: Immature granulocytes(IG's)percentage an d absolute count will include metamyelocytes, myelocytes, and promyelo cytes. Blood smears from CBCs yielding IG's will be scanned manually for concor dance. If this scan disagrees with the automated IG or if promyelocytes are not ed, a manual differential will be performed. Shannan Gran Abs 0.10 (H) 0.00 - 0.04 x10(3)/mcL [facility] LABORATORY Specimen Anatomical Collection Method Collection Time Receive d Time (Source) Location / / Volume Laterality Blood 11/29/2021 3:40 AM 4:00 EDT AM EDT Resulting Agency Comment Spec In Lab NIEVES Peoples HEMATOLOGY ORDERABLES Performing Organization Address City/State/ZIP Code Phon e Number [place] [phone] (ABNORMAL) Basic Metabolic Panel (non-fasting) (11/29/2021 3:40 AM EDT)Only the most recent of8 resultswithin the time period is included. P athologist Signature Glucose Lvl 110 65 - 199 [facility] mg/dL [facility] LABORATORY Comment: Diabetes: >=200 mg/dL plus symp toms BUN 22 (H) 10 - 20 mg/dL [facility] LABORATORY Creatinine 1.47 0.80 - 1.50 mg/dL [facility] LABORATORY Sodium 138 135 - 145 mmol/L [facility] LABORATORY Potassium 3.7 3.5 - 5.0 mmol/L [facility] LABORATORY Comment: Please note: ??Patients with WBC >100,00 0 may have falsely elevated Potassium levels. ??For accurate Potassium quantif ication in these patients send serum separator tube (gold top) for subsequent determinations. ??Contact the Clinical Chemistry Laboratory if there are any qu estions. Chloride 101 98 - 107 mmol/L [facility] LABORATORY CO2 25 22 - 31 mmol/L [facility] LABORATORY Anion Gap 12 5 - 15 mmol/L [facility] LABORATORY Calcium 9.2 8.5 - 10.5 mg/dL [facility] LABORATORY Estimated GFR 52 (L) >=60 mL/min/1.73 m?? [facility] LABORATORY Comment: This patient's estimated GFR was [...] Martinez MD CHEMISTRY ORDERABLES Performing Organization Address City/[facility]/ZIP Code Phon e Number [address] Potassium (11/28/2021 6:30 PM EDT) athologist Signature Potassium 3.6 3.5 - 5.0 [facility] LABORATORY Comment: Please note: ??Patients with WBC >100,00 0 may have falsely elevated Potassium levels. ??For accurate Potassium quantif ication in these patients send serum separator tube (gold top) for subsequent determinations. ??Contact the Clinical Chemistry Laboratory if there are any qu estions. Specimen Anatomical Collection Method Collection Time Receive d Time (Source) Location / / Volume Laterality Blood 11/28/2021 6:30 PM 2 6:39 EDT PM EDT Resulting Agency Comment Spec In Lab Jennifer Martinez MD CHEMISTRY ORDERABLES Performing Organization Address City/[facility]/ZIP Code Phon e Number [address] Magnesium (11/28/2021 3:15 AM EDT)Only the most recent of2 resultswithin the time period is included. athologist Signature Magnesium 0.74 0.69 - 1.07 [facility] Specimen Anatomical Collection Method Collection Time Receive d Time (Source) Location / / Volume Laterality Blood Venous Draw / 11/28/2021 3:15 AM 11/29/19 3:25 Unknown EDT AM EDT Resulting Agency Comment Spec In Lab Stephanie Parrish MD CHEMISTRY ORDERABLES Performing Organization Address City/State/ZIP Code Phon e Number [place] [phone] LAB[address] Place PICC Line: Contact Vascular Access Page [phone] Extremity to exclude: No restrictions; Is PICC [...] the planned procedu re. Hand Hygiene: The topstitcher lockstitch did perform hand hygiene pr ior to line insertion. Catheter type: PICC Lot number: [id number] Procedure Technique: Skin was prepped with chlorhexidine. [...] who have questions please contact the health acute care certified nursing assistant that requested your imaging first. ? Narrative 11/27/2021 4:00 PM EDT EXAMINATION: XR [...] ho have questions please contact the health acute care certified nursing assistant that requested your imaging first. Jennifer Martinez MD IMG FLUORO ORDERABLES C. Difficile Screen (11/26/2021 1:47 PM EDT) [facility] Method Time Signature C Diff Screen See comment Negative [facility] LABORATORY Comment: Ag/Tox Neg C. diff?? Negative [...] Organization Address City/State/ZIP Code Phon e Number [address] CK (11/26/2021 6:56 AM EDT) P athologist Signature CK, Total 74 0 - 200 [facility] unit/L [facility] LABORATORY Specimen Anatomical Collection Method Collection Time Receive d Time (Source) Location / / Volume Laterality Blood Venous Draw / 11/26/2021 6:56 AM 11/27/19 7:32 Unknown EDT AM EDT Resulting Agency Comment Spec In Lab NIEVES Peoples CHEMISTRY ORDERABLES Performing Organization Address City/[facility]/ZIP Code Phon e Number [address] Anaerobic Culture (11/25/2021 9:00 AM EDT)Only the most recent of7 resultswithin the time period is included. XOG Method Time Signature Anaerobic No anaerobic [facility] Culture organisms [facility] LABORATORY Specimen Anatomical Collection Method Collection Time Receive d Time (Source) Location / / Volume Laterality Leg 11/25/2021 9:00 AM EDT 10:33 AM EDT Comment: Right foot proximal resection s ite first metatarsal. Resulting Agency Comment Spec In Lab Jarad Flores MD MICROBIOLOGY - GENERAL ORDER SILAS Performing Organization Address City/[facility]/ZIP [place] [address] (ABNORMAL) Tissue culture (11/25/2021 9:00 AM EDT) Component Value Ref Test Analysis Performed At XOG Range Method Time Signature Tissue Rare Coagulase negative Staphylococcus species [place] Culture One colony of Coagulase negative Staphylococcus species #2 [place] Rare Corynebacterium species M [facility] Susceptibilities previously reported HOSPITAL (A) LABORATORY Gram Stain No Neutrophils seen. [place] No microorganisms seen. [facility] (A) [facility] LABORAT[facility] Organism Coagulase negative [place] Staphylococcus [place] species (A) [facility] Organism Corynebacterium [place] species (A) [facility] LABORATORY Specimen Anatomical Collection Method Collection Time Receive d Time (Source) Location / / Volume Laterality Leg 11/25/2021 9:00 AM EDT 10:33 AM EDT Comment: Right foot proximal resection s ite first metatarsal. Resulting Agency Comment Spec In Lab Jarad Flores MD MICROBIOLOGY - GENERAL ORDER SILAS Performing Organization Address City/State/ZIP Code [place] [address] XR Foot Min 3 views Right (Generic) (11/23/2021 6:36 PM EDT)Only the most recent of2 resultswithin the time period is included. Anatomical Region Laterality Modality Foot Right Digital [...] who have questions please contact the health acute care certified nursing assistant that requested your imaging first. ? Narrative 11/23/2021 7:11 PM EDT EXAMINATION: XR [...] ho have questions please contact the health acute care certified nursing assistant that requested your imaging first. Afshin Rogers MD IMG DX ORDERABLES Phosphorus (11/23/2021 4:28 PM EDT)Only the most recent of7 resultswithin the time period is included. athologist Signature Phosphorus 4.0 2.5 - 4.5 [facility] mg[facility]dL [facility] Specimen Anatomical Collection Method Collection Time Receive d Time (Source) Location / / Volume Laterality Blood 11/23/2021 4:28 PM 2 4:55 EDT PM EDT Resulting Agency Comment Spec In Lab Jennifer Martinez MD CHEMISTRY ORDERABLES Performing Organization Address City/State/[place] [address] (ABNORMAL) Bone Culture (11/23/2021 1:06 PM EDT)Only the most recent of3 results within the time period is included. Component Value Ref Test Analysis Performed At [facility] gist Range Method Time Signature Bone Culture Rare Coagulase negative Staphylococcus species [place] Susceptibilities previously reported [place] (A) [facility] Gram Stain No Neutrophils seen. [place] No microorganisms seen. [facility] (A) [facility] Organism Coagulase negative [place] Staphylococcus [place] species (A) [facility] Specimen Anatomical Collection Method Collection Time Receive d Time (Source) Location / / Volume Laterality Bone TOE STRUCTURE / 11/23/2021 1:06 PM 2021 2:36 Unknown EDT PM EDT Comment: First right metatarsal resectio n #3 Resulting Agency Comment Spec In Lab Jarad Flores MD MICROBIOLOGY - GENERAL ORDER SILAS Performing Organization Address City/State/ZIP Code [place] [address] Anesthesia Block (11/23/2021 12:40 PM EDT)Only the most recent of3 resultswithin the time period is included. Narrative Jeremías Bergman MD - 11/23/2021 12:40 PM EDT Ed Obrien MD ? 11/23/2021 ??1:04 PM Anesthesia Block Date/Time: 11/23/2021 12:40 PM Performed by: Ed Obrien MD Authorized by: Jeremías Bergman MD Start Time: ??11/23/2021 12:40 PM End Time: ??11/23/2021 12:50 PM Indication: ??Post-op Pain Control Post-op pain management at the request o f surgeon. ?? Block Type: ??Sciatic and saphenous nerv e block/mid thigh sciatic/ popliteal nerve block Laterality: ??Right Position: ??Supine Prep: ??Chlorhexidine, patient draped an d mask, cap, sterile gloves, hand hygeine Block Technique: ?? SonoPlex ?? 21 ?? 10 cm ??Ultrasound Guided: ??YES and in-plane ??Ultrasound Image Saved ?Ultrasound guidance was used to ident tapan the targeted neuronal structure. Ultrasound was also used to i dentify needle position and to identify tissue (bone, muscle, and blood vessels) to prevent inadvertent intraneural or intravascular needle plac ement and injection. The spread of local anesthetic was confirmed with live ultrasound imaging. ?Single-Shot: ??Single-shot Local Anesthetic Volume(s) Injected for Nerve Block: ?? ROpivacaine 0.5% - Perineural 30 mL - 11/23/2021 12:50:00 PM Nerve Sensory/MotorTest: ??Events: no complications ?? Staff: ??Resident/MOVE COORDINATOR:: ??Berny Sharma MD ??Fellow:: ??Ed Obrien MD ??Attending Physician:: ??Jeremías Bergman MD Notes: ?? Target structures, needle, and local anesthetic spread were visualized under US guidance for the duration of th e procedure. No blood aspirated, no pain on injection, no paresthesias. N o needle to nerve contact was observed on ultrasound. Jeremías Bergman MD CONTRACTING SUPPORT SPECIALIST [facility] (ABNORMAL) Vancomycin, trough (11/22/2021 8:29 AM EDT)Only the most recent of2 resultswithin the time period is included. athologist Signature Vanc Trough 21.4 mg/L [facility] (Critical) [facility] Comment: Called by: , Read back by: Lila Piña mm, Date/Time:11/22/21 [...] Organization Address City/State/[place] [address] Hepatic Function Panel (11/21/2021 8:38 AM EDT)Only the most recent of2 results within the time period is included. athologist Signature Total Protein 6.5 6.1 - 8.0 [facility] g/dL [facility] Albumin 3.2 3.2 - 5.2 [place] g/dL [facility] AST 13 0 - 39 [place] unit/L [facility] ALT 10 0 - 55 [place] unit/L [facility] Alk Phos 76 40 - 130 [facility] [place] unit/L [facility] Total 0.4 0.2 - 1.3 [place] Bilirubin mg/dL [facility] Bili, Direct 0.1 0.0 - 0.3 [facility] Specimen Anatomical Collection Method Collection Time Receive d Time (Source) Location / / Volume Laterality Blood 11/21/2021 8:38 AM 2 8:52 EDT AM EDT Resulting Agency Comment Spec In Lab Sommer Bains APRN CHEMISTRY ORDERABLES Performing Organization Address City/[facility] Code Phon e Number [address] (ABNORMAL) Sedimentation rate (11/19/2021 5:56 AM EDT) P athologist Signature Sed Rate 104 (H) 2 - 37 [facility] mm/hr [facility] Comment: Effective April 21, 2019 [...] Organization Address City/State/ZIP [place] [address] Surgical Pathology Report (11/18/2021 8:56 PM EDT) Component Value Ref Test Analysis Performed At Patholo gist Range Method Time Signature Surgical [id number] ? Location: 1WST; 0110; [facility] Report The signing pathologist has (i) examined [...] significant inflammation . Electronically signed by: ?Cindy Ewing MD Verified: ??11/28/2021 12:13 ??Pathologist Performed at: ??-[facility] Dept. of Pathology, [place], [place] SPECIMEN(S) SUBMITTED A - ??Right great [...] for decalcification: A1-A5. Touch prep(s) are prepared. Trench Trimmer Fine sections in 6 cassettes as follows: ?A1-A4: [...] MD PATHOLOGY/CYTOLOGY ORDERABLE S Performing Organization Address City/State/[facility] [place] [address] Specimen to Pathology (11/18/2021 8:56 PM EDT) Specimen Anatomical Collection Method Collection Time Receive d Time (Source) Location / / Volume Laterality AP Specimen 11/18/2021 8:56 PM 8:56 EDT PM EDT Narrative [facility] - 11/18/2021 8:56 PM EDT Specimen requisition ordered. ??Separate Pathology report to follow Valentina Montoya MD PATHOLOGY/CYTOLOGY ORDERABLE S Performing Organization Address City/[facility]/ZIP [place] [address] Abscess/Wound Aspirate Culture (11/18/2021 8:52 PM EDT)Only the most recent of3 resultswithin the time period is included. Component Value Ref Test Analysis Performed At [facility] Range Method Time Signature Abscess/Wound No growth [place] Aspirate [place] Culture [facility] Gram Stain Few Neutrophils seen [facility] No microorganisms seen. [facility] Results called to and read back by Sd Cedillo ??11/18/21 23:17:2 4 [facility] Specimen Anatomical Collection Method Collection Time Receive d Time (Source) Location / / Volume Laterality Stump STRUCTURE OF RIGHT 11/18/2021 8:52 PM 02/2022 FOOT / Unknown EDT 10:42 PM EDT Comment: Cut end of RIGHT metatarsal bon e. Resulting Agency Comment Spec In Lab Sammy Baker MD MICROBIOLOGY - GENERAL ORDER SILAS Performing Organization Address City/State/ZIP [place] [address] [place] Lower Extremity w [...] approximately 2030 hrs. Preliminary report signed by: Mairo yoder at 11/18/2021 9:26 PM I have [...] who have questions please contact the health acute care certified nursing assistant that requested your imaging first. ? Electronically signed by: Wicho Michael MD, [facility] ([phone]), at 11/19/2021 2:58 AM Narrative 11/19/2021 2:58 [...] ho have questions please contact the health acute care certified nursing assistant that requested your imaging first. Aubree Jimenez MD IMG CT ORDERABLES (ABNORMAL) CRP, acute inflammation (11/18/2021 5:25 PM EDT) P athologist Signature CRP 265.6 (H) <=4.9 mg/L [facility] LABORATORY Specimen Anatomical Collection Method Collection Time Receive d Time (Source) Location / / Volume Laterality Blood 11/18/2021 5:25 PM 5:36 EDT PM EDT Resulting Agency Comment Spec In Lab Aubree Jimenez MD CHEMISTRY ORDERABLES Performing Organization Address City/State/[place] [address] from Last 3 Months Insurance Payer Benefit Plan / Subscriber ID Effective Phone Address T ype Group Dates MEDICARE MEDICARE PART A [id number] 2018-Prese [id number] [place] [id number] AARP SUPPLEMENT AARP SUPPLEMENT [id number] 2020-[place] nt [id number] [place] [address] Advance Directives Latest Code Status on File Code Status Date Activated Date Inactivated Comments Attempt Cardiopulmonary Resuscitation - 11/18/2021 5:58 PM 022 8:06 PM Inpatient Code Status decision made by: Patient Attempt Cardiopulmonary Resuscitation - 03/09/2020 6:29 PM 2019 5:03 PM Inpatient Code Status decision made by: Patient Full Code 12/13/2015 4:19 PM 12/13/2015 8:19 PM Does patient have capacity to make decision: Yes Full Code 08/19/2012 9:12 PM 08/21/2012 2:06 PM Order Status: Initial Order Does patient have decision making capacity? Yes, Order is based on Patients wishes. Care Teams Bottom Brusher Relationship Specialty Start Date End Date Brian Fall APRN PCP - General Internal Medicine 04/07/[address] [place] [phone]
--- OUTSIDE RECORDS SUMMARY | 2021-11-30 08:15 | XMS_ITS | Encounter Summary ---
:1955 Author Organization [facility] [place] [address] Care Team Providers Name Role Phone Huanjesus albertous Brian GONZALEZ Primary Care Provider Encounter Details Date Type Department Care Team Description 11/29/2021 Notes Only Care Management Zbigniew Choudhury, [place] [address] Social History Tobacco Use Types Packs/Day Years Used Date Current Every Day Smoker Cigars, Cigarettes 1 42 Smokeless Tobacco: Never Used Comments: a pack or less a day Alcohol Use Standard Drinks/Week Comments Yes 22 (1 standard drink = 0.6 oz pure alcoh ol) Sex Assigned at Date Recorded Not on file documented as of this encounter Progress Notes Zbigniew Choudhury RN - 11/29/2021 1:49 PM EDT 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 Patient and spouse did not accept costs through [facility], and as such opted for Infusion suite. While their initial preference was [facility], the infusion suite staff informed me they are unable to supply Daptomycin. Patient has been set up for Infusions at [facility]. Spouse is concerned that the distance will be too great for patient to tolerate, however they will attempt this option. If they are unable to continue outpatient infusions, they plan on contacting [facility] and transitioning to home. Patient has had teaching by [facility] staff and has previously completed a home infusion therapy regimen in 2019. documented in this encounter Plan of Treatment Upcoming Encounters Date Type Specialty Care Team Description 12/11/2021 Appointment Radiology 12/11/2021 Office Visit Orthopaedics Marion Tavera APRN [facility] ER DR ORTHOPAEDIC SUR[facility] [place] [place] [address] (Wo rk) 01/15/2022 Appointment Radiology Stiven Cervantes MD [facility] er Pulmonary Medici [place], [place] [address] (Wo rk) Scheduled Procedures Name Priority Associated Diagnoses Date/Time DEBRIDEMENT SKIN, SUBCU, MUSCLE, R great toe amp utation, wound LOWER EXTREMITY (WRVU 2.7) closure MODIFIER WOUND VAC R great toe amputation, wound closure documented as of this encounter Goals Goal Patient Goal Associated Recent Patient-Stated? Author Type Problems Progress DH Home Medication Patient On track No Ryan, Compliance and Facing (07/31/2016 Julia Esquivel, Understanding Action Plan 9:07 AM EDT) [facility] Note: Formatting of this note might be d ifferent from the original. Patient Goal: To experience less side ef fects than his past regimen of Peg and Ribavirin Timeframe to meet goal: 3 months of ther apy documented as of this encounter Visit Diagnoses Not on filedocumented in this encounter Care Teams Armature Rewinder Relationship Specialty Start Date End Date Brian Fall APRN PCP - General Internal Medicine 04/07/[address] [place] [phone] documented as of this encounter
--- OUTSIDE RECORDS SUMMARY | 2021-11-30 08:15 | XMS_ITS | Encounter Summary ---
:1955 Author Organization [facility] [place] [address] Care Team Providers Name Role Phone Brian Fall APRN Primary Care Provider Reason for Visit Auth/Cert Specialty Diagnoses / Procedures Referred By Contact Refer red To Contact Diagnoses Necrotizing fasciitis Cellulitis of leg, right Necrotic toes Infected [place] [address] Referral ID Status Reason Start Date Expiration Date Visits Requ ested Visits Authorized [id number] 1 1 Encounter Details Date Type Department Care Team Description 11/25/2021 Anesthesia Event Main Operating Room Marina Uribe MD [facility] [place] [address] [facility] Jerome Finney MD [facility] [place] [address] [place] [id number] Anesthesia Record Procedure Summary Procedure Name Responsible Anesthesia Start Anesthesia Stop Anesthesiologist Time Time DEBRIDEMENT SKIN, Laxmi Uribe MD 11/25/21 0827 11/25 0928 SUBCU, MUSCLE, BONE, LOWER EXTREMITY (WRVU 4.1) (Right ) Events Date Time Event Comment 11/25/2021 0815 0827 AN Verify 0827 Start 0827 An Start Data 0839 An Induction 0845 An Intubation 0845 Anesthesia Ready 0925 Extubation/LMA Out 0928 an stop data 0928 Recovery or ICU Handoff Patient care was transferred to the destination unit staff after review of the patient's medica l history, current anesthetic/surgi karla status and plan, according to the Provider Handoff Checklist. 09 Stop Name Total Propofol 300 mg fentaNYL 100 mcg PHENYLephrine 80 mcg Succinylcholine 100 mg HYDROmorphone 2 mg/mL 2 mg Dexmedetomidine 20 mcg Lactated Ringers 0 mL Agents Name O2 Air N2O Sevoflurane (et) Blood No blood administrations on file. Lines, Drains, and Airways Type Details Placement Removal Incision 11/18/21; 2046; Right; 11/18/212046 by first toe; other (see Mila Amador, VINCENT comments); amputation site. Incision 11/23/21; Right; first 11/23/21 0000 by toe Yoana Gutierrez RN PIV 11/23/21; 1250; dorsal 11/23/21 1250 by 11/27/21 0000 by arch vein (top of hand), Leny Downing, Khadijah Thompson RN right; 18 gauge; Tung N, ZULEIKA Bergman MD; 11/27/21 Urethral Catheter 11/23/21; 1357; Acute 11/23/21 1357 by 2 1744 by urinary retention or Loly Obrien, VINCENT turner, Valerie Eason, obstruction; indwelling RN double lumen catheter; 100% silicone; 14; inserted at this facility; 1; 10; 10; none; drainage bag to dependent drainage; tubing intact, per protocol/policy; 11/26/21; 1744 ETT Mask Ventilation: Not 11/25/21 0845 by 11/25/21 0925 by Attempted (0); ETT Type: Negro Molina CRNA Hinkley, Derek J, Cuffed, Oral; ETT Size: ZULEIKA 7.5 mm; Mac Blade: 3; Notes: Asleep, Pre-O2, Stylette; Attempts: 1; Laryngoscopy Grade: 2; ETT Placement Verified By: Auscultation, Capnometry, Visual; Secured at Teeth: 21 cm; Inserted by: Rony PETER 11/25/21; 0845; dorsal 11/25/21 0845 by 11/27/21 0000 by arch vein (top of hand), Negro Molina CRNA Camp, Cindy R, RN left; lnja-voh-[id number] catheter system; Anatomical Landmarks; 18 gauge; Tracy; 11/27/21 documented in this encounter Social History Tobacco Use Types Packs/Day Years Used Date Current Every Day Smoker Cigars, Cigarettes 1 42 Smokeless Tobacco: Never Used Comments: a pack or less a day Alcohol Use Standard Drinks/Week Comments Yes 22 (1 standard drink = 0.6 oz pure alcoh ol) Sex Assigned at Date Recorded Not on file documented as of this encounter OR Notes Anesthesia Postprocedure Evaluation - Laxmi Uribe MD - 11/25/2021 11:22 AM EDT Department of Anesthesiology Post-procedure Note Patient: Mahin Ramos Procedure Summary Date: 11/25/21 Room / Location: [facility] OR [facility] MAIN OR Anesthesia Start: 826 Anesthesia Stop: 927 Procedures: DEBRIDEMENT SKIN, SUBCU, MUSCLE, BONE, LOWER EXTREMITY (WRVU 4.1) (Right ) AMPUTATION, TRANSMETATARSAL (WRVU 12.71) (Right Foot) Diagnosis: (osteomyelitis of right great toe) Surgeons: Jarad Flores MD Responsible Provider: Laxmi Uribe MD Anesthesia Type: general ASA Status: 3 All Anesthesia Providers: Anesthesiologist: Laxmi Uribe MD SAP MANAGER: Negro Molina CRNA Vitals Value Taken Time BP 143/107 11/25/21 1100 Temp 36.7 ??C (98.1 ??F) 11/25/21 1045 Pulse 111 11/25/21 1100 Resp 18 11/25/21 1100 SpO2 95 % 11/25/21 1102 Pain Level 6 11/25/21 1045 Vitals shown include unvalidated device data. Patient Location: PACU/LOCATED WITHIN [facility] Level of Consciousness: Awake and Alert Pain Management: Pain Being Addressed PONV: None Cardiovascular Status: At Baseline and Hemodynamically Stable Respiratory Status: At Baseline and Room Air Postoperative Fluid Status: Intravascular EUvolemia Possible Anesthetic Complications: NONE apparent at time of evaluation Final Primary Anesthesia Type: General (The anesthetic type performed was the same as planned.) Comments: Patient required additional PRN doses of IV dilaudid for pain management in PACU. Upon re-evaluation he stated his pain was OK and he was more emotional and upset regarding overall hospitalization. Advised that if pain was not well controlled we could discuss further. Laxmi Uribe MD Anesthesia Preprocedure Evaluation - Laxmi Uribe MD - 11/25/2021 6:57 AM EDT Pre-Anesthesia Evaluation for: Mahin Ramos a 66 y.o. male. Procedure(s): DEBRIDEMENT SKIN, SUBCU, MUSCLE, BONE, LOWER EXTREMITY (WRVU 4.1) Patient Active Problem List Diagnosis Date Noted ??? Pruritic rash 08/22/2020 ??? Alcohol withdrawal syndrome, with delirium 11/20/2021 ? ? *S/p right great toe amp, I&D, vac 11/18/21 (Samuel) 11/18/2021 ??? Necrotizing soft tissue infection 11/18/2021 ??? Cellulitis of right foot 09/05/2021 ??? Acute osteomyelitis of right foot 05/14/2021 ??? Tightness of right gastrocnemius muscle 12/11/2020 ??? Edema of both lower extremities due to peripheral venous insufficiency 11/02/2020 ??? Functional gait abnormality 06/29/2020 ??? Noncompliance with treatment 06/29/2020 ??? Tobacco dependence syndrome 06/29/2020 ??? Chronic foot ulcer 06/29/2020 ??? Cellulitis 06/07/2020 ??? Tobacco user 04/11/2020 ??? Osteomyelitis 03/09/2020 ??? Neuropathic ulcer of toe of right foot with fat layer exposed 01/06/2020 ??? Neuropathic ulcer of foot, right, with fat layer exposed 11/11/2019 ??? Nausea 10/24/2019 ??? Fatigue 09/07/2019 ??? 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 Methadone dependence 07/22/2018 ??? Minimal cognitive impairment 06/08/2018 ??? Claustrophobia 02/13/2018 ??? Hyperlipidemia 05/22/2017 ??? Avascular necrosis of humeral head 08/22/2016 ??? Pain in left shoulder 08/22/2016 ??? Verruca plantaris 02/22/2016 ??? Gastroesophageal reflux disease 08/17/2015 ??? Cirrhosis 08/09/2015 ??? Polysubstance abuse 05/26/2015 ??? Avascular necrosis bilateral knees 04/11/2015 ??? Depressive disorder 04/18/2014 ??? Neuropathy 03/23/2014 ??? Chronic obstructive lung disease 02/14/2014 ??? Edema 06/16/2013 ??? Essential hypertension 05/12/2013 ??? Confusion 08/19/2012 ??? Hepatitis C 09/06/2011 ??? Gout 08/10/2010 ??? Alcohol dependence 03/11/2008 ??? Anxiety 03/11/2008 ??? ADHD NOS 03/11/2008 ??? Chronic back pain 03/11/2008 ??? Major depressive disorder, single episode, unspecified 03/11/2008 Past Medical History: Diagnosis Date ??? Ankle [...] AMPUTATION FOOT, TRANSMETATARSAL Left 03/10/2020 AMPUTATION, TRANSMETATARSAL (VU 12.71) performed by Geovanna Lewis MD at [facility] MAIN OR ??? PRO AMPUTATION METATARSAL+TOE, SINGLE Right 11/23/2021 AMPUTATION, TRANSMETATARSAL TOE, ONE TOE (VU 6.64) performed by Jarad Flores MD at [facility] MAIN OR ??? PRO AMPUTATION TOE, MT-P JT Right 11/18/2021 AMPUTATION TOE, METATARSO-PHALANGEAL JOINT (WRVU 5.82) performed by Sammy Baker MD at [facility] [place] ??? PRO TOTAL KNEE ARTHROPLASTY Left 12/13/2015 @TOTAL KNEE ARTHROPLASTY performed by Gordon Mallory MD at [facility] MAIN OR ??? PRO UPPER GI ENDOSCOPY, DIAGNOSTIC Bilateral 08/17/2015 EGD, UPPER GI ENDOSCOPY performed by Trev Hong MD at [facility] ENDOSCOPY ??? REVISION TOTAL HIP ARTHROPLASTY bilateral for hip AVN ??? SPINE SURGERY Social History Tobacco Use ??? Smoking status: Current Every Day Smoker Packs/day: 1.00 Years: 42.00 Pack years: 42.00 Types: Cigars, Cigarettes ??? Smokeless tobacco: Never Used ??? Tobacco comment: a pack or less a day Substance Use Topics ??? Alcohol use: Yes Alcohol/week: 22.0 - 23.0 standard drinks Types: 21 Standard drinks or equivalent, 1 - 2 Cans of beer per week Social History Substance and Sexual Activity Drug Use Yes ??? Types: Marijuana Allergies Allergen Reactions ??? Morphine Other (See Comments) STATES THAT IT DOES NOT TAKE HIS PAIN AWAY Medications: MAR and/or home medications have been reviewed. Physical Exam: Preprocedure Vitals Current as of 11/25/21 0657 BP: 160/91 Pulse: 91 Resp: 24 SpO2: 92 Temp: 37.2 ??C (99 ??F) Height: 175.3 cm (5' 9) (11/20/21) Weight: 98.2 kg (216 lb 9.6 oz) (11/18/21) BMI: 31.99 IBW: 70.7 kg (155 lb 15.1 oz) Last edited 11/25/21 0452 by Airway Assessment: Mallampati: II TM distance: >3 FB Neck ROM: full Cardiovascular Assessment: Rhythm: regular Rate: normal system normal Pulmonary Assessment: unlabored breathing pulmonary exam normal Dental Assessment: (+) edentulous Misc Assessment: IV access: Peripheral line Last Filed Perioperative Cognitive Screening None Anesthesia Plan: ASA 3 general, with a(n) intravenous induction Mahin Ramos is a 66 y.o. male (98kg BMI 32) with a hx significant for infected R 1st toe amputation site presenting for debridement with Dr. Flores. PMHx: - HTN (on beta michelle) - GERD - chronic pain (on methadone 90mg qd) - cirrhosis - HCV - COPD - h/o SDH - h/o urinary retention - mood disorder/insomnia (on mirtazapine, buspirone) - AGNIESZKA (Cr 1.3 up from baseline 0.8) ??? metoprolol succinate XL 150 mg Oral [...] TID ??? mirtazapine 30 mg Oral Nightly HYDROmorphone OR HYDROmorphone OR HYDROmorphone, midazolam (PF), hydrOXYzine, sodium chloride 0.9 % (flush), lidocaine, acetaminophen, ondansetron OR ondansetron, melatonin, albuteroL Allergies Allergen Reactions ??? Morphine Other (See Comments) STATES THAT IT DOES NOT TAKE HIS PAIN AWAY Anesthesia Hx: NPO adequate. Denies CP SOB or URI. Activity prior to surgery: METS>4. Peripheral nerve block previously without issue. Prior uncomplicated GA, airway: grade 1 MAC 4 7.5ETT, Unique 5, easy mask. EKG: NSR rate 90s prolonged QTc 518 ECHO (2014, obtained for dyspnea): LVEF 65% mild LVH normal diastolic fx, no regional wall motion abnormalities, trace MR TR, mild pulm HTN (35mmHg) Labs: WBC 13, Hb 15, Hct 45, PLT 389, K 3.2, Cr 1.3 (baseline 0.8) Plan is for GA with ETT/LMA, possible peripheral nerve block for post-op pain control, standard ASA monitors, and adequate IV access. Consider QT prolonging agents as patient on methadone with QTc >500. Region - Other Informed Consent: Anesthetic plan and risks discussed with patient. Plan discussed with resident and attending. Anesthesia Screening documented in this encounter Plan of Treatment Upcoming Encounters Date Type Specialty Care Team Description 12/11/2021 Appointment Radiology 12/11/2021 Office Visit Orthopaedics Marion Tavera APRN [facility] ORTHOPAEDIC SURG [place], [place] [address] (Wo rk) 01/15/2022 Appointment Radiology Stiven Cervantes MD [facility] Pulmonary Medici [place], [place] [address] (Wo rk) Scheduled Procedures Name [...] Esquivel, Understanding Action Plan 9:07 AM EDT) [facility] Note: Formatting of this note might be d ifferent from the original. Patient Goal: To experience less side ef fects than his past regimen of Peg and Ribavirin Timeframe to meet goal: 3 months of ther apy documented as of this encounter Visit Diagnoses Not on filedocumented in this encounter Administered Medications Inactive Administered Medications - up to 3 most recent administrations Medication Order MAR Action Action Date Dose Rate Site dexmedeTOMIDine (Precedex) (4 Given 11/25/2021 9:14 AM EDT 8 mcg mcg/mL) bolus injection (Anesthsia) Intravenous, PRN, Starting on 11/25/21 at 0911, Until 11/25/21 at 0928, Anesthesia Intra-op, Routine Given 11/25/2021 9:11 AM EDT 12 mcg fentaNYL (pf) (50 mcg/mL) multi-dose Given 11/25/2021 8:39 AM ED T 100 mcg injection Intravenous, PRN, Starting on 11/25/21 at 0839, Until 11/25/21 at 0928, Anesthesia Intra-op, Routine HYDROmorphone (Dilaudid) (2 mg/mL) multi-dose Given 9:08 AM EDT 0.2 mg injection solution Intravenous, PRN, Starting on 11/25/21 at 0859, Until 11/25/21 at 0928, Anesthesia Intra-op, Routine Given 11/25/2021 9:05 AM EDT 0.4 mg Given 11/25/2021 9:03 AM EDT 0.4 mg lactated ringers infusion New Bag 11/25/2021 8:27 AM EDT Intravenous, CONTINUOUS PRN, Starting on 11/25/21 at 0827, Until 11/25/21 at 0928, Anesthesia Intra-op PHENYLephrine in NS (PF) (PERRY-SYNEPHRINE) 0.8 Given 8:39 AM EDT 80 mcg mg/10 mL (80 mcg/mL) multi-dose injection Syrg Intravenous, PRN, Starting on 11/25/21 at 0839, Until 11/25/21 at 0928, Anesthesia Intra-op, Routine propofoL (Diprivan) 10 mg/mL bolus injection Given 8:54 AM EDT 100 mg (Anesthesia) Intravenous, PRN, Starting on 11/25/21 at 0839, Until 11/25/21 at 0928, Anesthesia Intra-op Given 11/25/2021 8:43 AM EDT 50 mg Given 11/25/2021 8:39 AM EDT 150 mg succinylcholine (Anectine;Quelicin) (20 Given 11/25/2021 8:42 AM EDT 100 mg mg/mL) injection Intravenous, PRN, Starting on 11/25/21 at 0842, Until 11/25/21 at 0928, Anesthesia Intra-op, Routine documented in this encounter Care Teams Birth Attendant Relationship Specialty Start Date End Date Brian Fall APRN PCP - General Internal Medicine [birth year] [address] [place] [id number] documented as of this encounter
--- OUTSIDE RECORDS SUMMARY | 2021-11-30 08:16 | XMS_ITS | Encounter Summary ---
:1955 [place] [address] Care Team Providers Name Role Phone Brian Fall APRN Primary Care Provider Reason for Visit Reason Comments Leg Pain Auth/Cert Specialty Diagnoses / Procedures Referred By Contact Refer red To Contact Diagnoses Necrotizing fasciitis Cellulitis of leg, right Necrotic toes Infected [place] [address] Referral ID Status Reason Start Date Expiration Date Visits Requ ested Visits Authorized [id number] 1 1 Encounter Details Date Type Department Care Team Description 11/25/2021 Surgery Main Operating Room [facility] Flores [facility], [facility] Hospital LOWER EXTREMITY ([facility] ORTHOPAEDIC S URGERY 4.1) [place] [id number] [place] [id number] [phone] Social History Tobacco Use Types Packs/Day Years [...] Sign Reading Time Taken Comments Blood Pressure 155/99 11/25/2021 10:00 AM EDT Pulse 106 11/25/2021 10:00 AM EDT Temperature 36.8 ??C (98.2 ??F) 11/25/2021 9:30 AM EDT Respiratory Rate 11 11/25/2021 10:00 AM EDT Oxygen Saturation 99% 11/25/2021 10:00 AM EDT Inhaled Oxygen Concentration - - Weight 98.2 kg (216 lb 9.6 oz) 11/18/2021 11:10 PM EDT Height 175.3 cm (5' 9) 11/20/2021 3:51 PM EDT Body Mass Index 30.21 11/20/2021 3:51 PM EDT documented in this encounter Discharge Summaries Cyndy Padilla PA - 11/29/2021 3:47 PM EDT Images from the original note were not included. Discharge Summary Patient Name: Soledad Ramos Patient Age: 66 y.o. Language: Malian Race: White Ethnicity: Not nor Admit date: 11/18/2021 Discharge date and time: 11/29/2021 Attending Physician: Jennifer Martinez MD Discharge Provider: NIEVES Hutton Follow-up Recommendations for Providers: - Continue methadone for chronic pain dose adjustments per [facility]. His last dose of methadone was 45 mg on 11/29/2021. Last QTC done on the same day was 494. Plan discussed with Dr. Garrison at [facility] to increase by 10 mg daily while monitoring daily EKG. - Patient is on IV ertapenem 1 g daily and IV daptomycin 700 mg daily through 01/06 for osteomyelitis. His IV infusions are set up with BE[facility] Mendoza in [facility], with his next appointment on 11/30 at 1 PM. - He will need PCP, ID, orthopedic follow-up Inpatient Provider Contact Information: For questions regarding this document or issues relating to this hospitalization on the Medical Service, please contact your inpatient physician through the [facility] Soap Slabber . Issues after hours and on weekends [...] ??? Patient has active durable power of regulatory attorney (DPOA) designee for healthcare ??? Methadone dependence [...] BONE, LOWER EXTREMITY ([facility] 4.1) AMPUTATION, [facility] 11/25/2021 Procedure(s): DEBRIDEMENT SKIN, SUBCU, MUSCLE, BONE, LOWER EXTREMITY (WRV[facility] 4.1) AMPUTATION, TRANSMETATARSAL ([facility]) 11/25/2021 Procedure(s): DEBRIDEMENT SKIN, SUBCU, MUSCLE, BONE, LOWER EXTREMITY ([facility]VU 4.1) AMPUTATION, TRANSMETATARSAL ([facility] 12.[facility]) 11/25/2021 Other Major Procedures: N/A History of Presentation: As per admission H&P on 11/18: Soledad Ramos is a 66 y.o. male with hx of EtOH abuse with alcoholic neuropathy and chronic b/l foot wounds(previous osteomyelitis), prior left 4th- 5th amputations, COPD on 2 L O2 at home, opioid usedisorder on methadone and mild cognitive impairment presenting for admission from the [facility] (transferred from [facility] ED) at the request of the orthopedic surgery service for necrotizing soft tissue infection of the right foot/great toe. History obtained from patient and chart review . ?? Soledad relates that he initially presented to [facility] this AM after rapid progression of his [...] any fevers orchills. ?? He presented to [facility] where his labs were significant for a WBC 23k, Cr 1.1, Hgb 13, Glucose 117, Na 137, CRP unknown (not obtained). He was administered clindamycin and Vancomycin [facility] and recommended transfer to [facility] ED for further work-up and evaluation for [...] asked hospital medicine to admit patient given tx s medical complexity and multiple co-morbidities. Hospital [...] to follow-up with daily infusion clinic - [facility] in [facility] tomorrow at 1 PM. The infectious disease providers well call you to set up a follow-up appointment towards the end of your IV antibiotic course. You also have an orthopedic follow-up at 2:30 PM on 12/11. You may continue with dtng-dki-cuspiwa Tylenol as needed for pain, not to exceed 4000 mg daily. We also resumed your methadone dose, you are now on 45 mg daily. You will need to see your [facility] provider for your next methadone dose, it [...] mg, he will need to follow-up at [facility] tomorrow to have your new dose set by them. Stop these medications: - Zofran Follow-up: Future Appointments Date Time Provider Department [facility] Rad LYME CLINICS Your Inpatient Doctor: LORRIE LUNDBERG HANNAH L BHISE, VIRAJ R MUELLER, CATHERINE L Your Primary Care Provider: @PCPID@ For questions regarding this document or issues relating to this hospitalization on the Medical Service, please contact your inpatient physician through the [facility] Soap Slabber . Issues after hours and on weekends [...] dressing on until follow-up. Call your doctor ([phone]) if you develop: 1. Fever greater than [...] your intake of calcium should be at [id number] a day and your vitamin D intake should be at least 800 IU per day. FOLLOW-UP APPOINTMENTS: 1. You will have follow-up appointments at [facility] as indicated in Future Appointment and Orders. 2. Please call Orthopedics at if you have any questions or concerns, as your follow-up is important to us. Future Appointments Date Time Provider Department Center 12/11/2021 1:00 PM [facility] DX ROOM 2 Xray [facility] Rad 12/11/2021 2:30 PM Marion Tavera APRN [facility] ORTH 3C [facility] 01/15/2022 12:[address] [facility] [address] [facility] [address] [facility] Rad SAME DAY PROGRAM POST-OPERATIVE INSTRUCTIONS [...] 24 hours, please call the Anesthesiology Department: [phone] Shortness of breath: If you have severe shortness of breath that seems to go on and on, please go tothe nearest ER (emergency room). If a nerve block lasts longer than 48 hours, take action. If the nerve block does not wear off within 48 hours, please call the Anesthesiology Department: [phone] Protect the part of your body that [...] the Anesthesiology Department with concerns or questions: [phone] After hours: Call the hospital hoisting machine operator and ask for the anesthesiologist (deb talbot) cotton stripper: [phone] Updated: 03/19/21 If you have questions or concerns: Friday through Friday, 8 AM - 5 PM, please call Sammy Baker MD's office at . If it is after 5 PM or on the weekend, please call and ask to speak with the Orthopedic resident on-call. Substance Use Treatment, Harm-Reduction, and Relapse Prevention Resources Residential Treatment: [address] [address] Intensive Outpatient Program: [address] [address] Individual Counseling: [address] [address] [facility] [address] [place] [address] x6 Anne-Marie Tang, [address] [phone] Offers EMDR Therapy You may also search www.psychologytoday.com or 99times.cn for therapists in your area. EMDR Therapy [...] completed in fewer sessions than other psychotherapies. www.emdria.org/mhgsr-yrho-mcwjlnk/ Medication Assisted Therapy: [address] [place] [address] [place] [address] Peer Support Groups Alcoholics Anonymous (AA) [place]: , www.nhaa.net Narcotics Anonymous (NA) [place]: , www.gmana.org Community Peer Support Center [address] [address] Online AA and NA Meetings AA, NA, Refuge Recovery, SMART Recovery www.VenatoRx [employer]aceuticals AA Video Meetings www.aa-intergroup.org/directory_audio-video.php AA Text Chat Meetings www.aa.intergroup.org/directory.php NA Video Meetings www.virtual-na.org/meetings NA Text Chat Meetings Www.neveraloneclub.org SMART Recovery Meetings via Zoom 5:00-6:00pm, free and open to all To join Zoom meetin. Visit [email or web address].Teralynk 2. Click on calendar on top of toolbar 3. Find the correct meeting date and time 4. Click the zoom link and enter password provided Additional Substance Use Treatment Resources Www.Svpplyddictionservices.org www.healthvermont.gov/alcohol-drugs www.[place] [address].org/ (Search for Substance Use) www.psychologytoday.com/ Www.rethinkingdrinking.niaaa.nih.gov/ www.samhsa.gov/lgfupmzmnd-paowcuut-zhfhthpdd/dotbfumokrnz-nkhwaak-mbqp/treatment -practitioner-power reactor supervisor Mental Health Crisis National Mental Health Crisis Line: Dial 98 www.[facility].gov/find-help/984 Harm-Reduction Resources Mobile operations. For more information about receiving supplies: including syringe exchange, fentanyl test strips, and naloxone, or to schedule an appointment: [place] clients call and leave a message for Yoana (ext. 105) or Zbigniew Quigley (ext. 104). [place] clients call to speak with Zbigniew Waddell [...] is being approved. Online Stress Reduction Resources www.Slicethepie/videos-features/videos/oqsitfmdd-veogexdqb-4-7-8-breath/ www.Work in Fieldind365 Data Centersord.org/2013/wvyvorwfe-kybvfdvrd-rdyumsf-moment/ www.Spectropath/ www.mindful.org/ www.freeSpotMe Fitnessness.org/ Employment Agency Working [address] [address] [email or web address] Providing an opportunity for successful employment and recovery by empowering individuals to manage challenges because of substance use addiction and past convictions. YOU ARE SCHEDULED FOR A FOLLOW UP APPOINTMENT WITH YOUR PRIMARY CARE PROVIDER ON 12/10/2021 AT 9:30AM Future Appointments and Orders Future Appointments and Orders Future Appointments Provider Department Dept Phone 12/11/2021 1:00 PM [facility] DX ROOM 2 XRay at [facility] Arrive at: [facility] [phone] Please go to [facility] ([place] Location). 12/11/2021 2:30 PM Marion Tavera APRN Orthopaedics at [facility] Arrive at: [facility] [phone] 01/15/2022 12:[address] [facility] [address] Scan at [facility] Arrive at: 3Z RADIOLOGY [phone] Future Orders Complete By Expires XR Foot Min 3 views Right (Generic) [93414 Custom] 12/11/2021 05/30/2022 Process Instructions: Scheduling Instructions: Comments: Questions: Where will study be performed?: [facility] Radiology Portable exam?: Reason for exam and clinical history: s/p 1st toe amp Clinical information / hansen questions for radiologist: Stat read required?: Date of injury if applicable: Requested Time: OPAT: Order / Recommendation for Post Discharge IV Antibiotic Management [HBP151 CPT(R)] As directed Process Instructions: If no progress note charted, please enter Clinical details in comments. Scheduling Instructions: Comments: Please Fax all results to: OPAT Program Infectious Disease Section [facility], [place] [address] FAX: After hours, please contact the Infectious Disease Physician cotton stripper at . If this order was signed greater than 72 hours prior to [facility] discharge, please call to confirm the accuracy [...] Saline then 3 ml heparin (10 units/ml) residential for medication administration/highway maintenance supervisor and catheter care/maintenance authorized. PICC Dressing Change weekly and PRN Please use CHG or Bio Patch RNs: Please care for PICC line including dressing changes weekly and prn. Please draw labs every Friday and PRN and fax results to [facility] at [phone]. Please draw labs off PICC line. See OPAT order for lab draw details. RN visits for IV ABX teaching as needed and ongoing assessment. Catheter Occlusion Management Instill reconstituted Cathflo 2mg per instillation (based on the volume of the catheter lumen). May repeat x1 per occlusion incident. Questions: ID Diagnosis: Cellulitis/Polymicrobial diabetic foot infection, Osteomyelitis of right great toe; s/p reamputation through 11/25/21 Microorganisms being treated: Coagulase negative staph, [...] (5' 9) Infectious Disease Attending: Judit Spencer, DO [facility] [EQ161 Custom] As directed Process Instructions: Scheduling Instructions: Comments: Soledad Ramos [address] [facility] [phone] (home) No relevant phone numbers on file. Diagnosis: deconditioning with Unsteady gait Significant weakness, ataxia or gait abnormality Patient's: Hgt: Ht Readings from Last 1 Encounters: 11/20/21 : 175.3 cm (5' 9) ? Wgt: Wt Readings from Last 1 Encounters: 11/29/21 : 92.8 kg (204 lb 9.4 oz) VENDOR: [facility] Ordering: Front wheel walker Deliver to 's hospital room #: 110-B Questions: Device Needed: 2 BUTTON FOLDING WHEELED WALKER (E0143) Referral for Outpatient Antibiotics [LLJ9703 CPT(R)] As directed Process Instructions: Scheduling Instructions: Comments: Follow OPAT orders Questions: Vendor / contact information: [facility] Patient location post discharge: Home Service requested: Home ABX with supplies / PICC line Start date: Responsible MD post discharge contact info: Referral to Home Health [REF34 Custom] As directed Process Instructions: If no progress note charted, please enter Clinical details in comments. Scheduling Instructions: Comments: Please evaluate Soledad Ramos for admission to Home Health. [address] [facility] [phone] (home) Date of : 1955 DOCUMENTATION FOR VNA SERVICES (INCLUDING THOSE PATIENTS WITH MEDICARE COVERAGE REQUIRING HOME VNA SERVICES AND/OR HOSPICE SERVICES) PATIENT'S LOCATION: Soledad Ramos [address] [facility] [phone] (home) Cell: No relevant phone numbers on file. Cable Strander's Name: Self / In discussion with the attending physician, it is certified that this patient is under their care and that they, or a Nurse Practitioner,Clinical Nurse specialist or Physician Fire Control System Installer who is working directly with them, had [...] AGENCY: [facility] and [address] [address] PHONE: [phone] FAX: [phone] Start of care: Day of discharge FOR [...] to be obtained from this patient'sPCP: Brian Fall, RAIL DIRECTOR [address] [address] All VNA agencies which cover the area of patient's residence have been reviewed, either verbally or in writing, and patient/family have chosen the home health care agency noted Questions: Disciplines Requested: Nursing Physical Therapy Occupational Therapy Discharge References/Attachments None documented in this encounter Discharge Instructions Discharge InstructionsNiki Gonzalez, [facility] - 11/18/2021 9:50 PM EDT Orthopedic Surgery [...] dressing on until follow-up. Call your doctor ([phone]) if you develop: Fever greater than 100.5 [...] your intake of calcium should be at gaqlj8668ol a day and your vitamin D intake should be at least 800 IU per day. FOLLOW-UP APPOINTMENTS: 1. You will have follow-up appointments at [facility] as indicated in Future Appointment and Orders. 2. Please call Orthopedics at if you have any questions or concerns, as your follow-up is important to us. Future Appointments Date Time Provider Department Center 12/11/2021 1:00 PM [facility] DX ROOM 2 Xray [facility] Rad 12/11/2021 2:30 PM Marion Tavera APRN [facility] ORTH 3C [facility] 01/15/2022 12:[address] [facility] [address] [facility] [address] [facility] Rad SAME DAY PROGRAM POST-OPERATIVE INSTRUCTIONS [...] 24 hours, please call the Anesthesiology Department: [phone] Shortness of breath: If you have severe shortness of breath that seems to go on and on, please go tothe nearest ER (emergency room). If a nerve block lasts longer than 48 hours, take action. If the nerve block does not wear off within 48 hours, please call the Anesthesiology Department: [phone] Protect the part of your body that [...] the Anesthesiology Department with concerns or questions: [phone] After hours: Call the hospital hoisting machine operator and ask for the anesthesiologist (deb talbot) cotton stripper: [phone] Updated: 11/8/21 If you have questions or concerns: Friday through Friday, 8 AM - 5 PM, please call Sammy Baker MD's office at . If it is after 5 PM or on the weekend, please call and ask to speak with the Orthopedic resident on-call. Substance Use Treatment, Harm-Reduction, and Relapse Prevention Resources Residential Treatment: [address] [address] Intensive Outpatient Program: [address] [address] Individual Counseling: [address] [address] [facility] [address] [place] [address] x[address] Anne-Marie Tang[address] [phone] Offers EMDR Therapy You may also search www.psychologySpokeable.Cronote or 99times.cn for therapists in your area. EMDR Therapy [...] completed in fewer sessions than other psychotherapies. www.emdria.org/shuct-rjtf-tvkzxnl/ Medication Assisted Therapy: [address] [place] [address] [place] [address] Peer Support Groups Alcoholics Anonymous (AA) [place]: , www.nhaa.net Narcotics Anonymous (NA) [place]: , www.gmana.org Community Peer Support Center [facility] [address] [place] [address] Online AA and NA Meetings AA, NA, Refuge Recovery, SMART Recovery www.VenatoRx Pharm[employer] AA Video Meetings www.aaClariPhy Communicationsintergroup.org/directory_audio-video.php AA Text Chat Meetings www.aa.intergroup.org/directory.php NA Video Meetings www.virtualClariPhy Communicationsna.org/meetings NA Text Chat Meetings Www.Ionia Pharmacyaloneclub.org SMART Recovery Meetings via Zoom 5:00-6:00pm, free and open to all To join Zoom meeting: Visit www.Teralynk Click on calendar on top of toolbar Find the correct meeting date and time Click the zoom link and enter password provided Additional Substance Use Treatment Resources Www.Svpplyddictionservices.org www.healthvermont.gov/alcohol-drugs www.wqxfjre804.org/ (Search for Substance Use) www.[place] Metech.Cronote/ Www.rethinkingdrinking.niaaa.nih.gov/ www.samhsa.gov/zfgzjaqisw-dmuqluyr-sbsmzhscq/fvlrjydocmou-atpfjey-xsxu/treatment -practitioner-power reactor supervisor Mental Health Crisis [employer] Mental [facility] Crisis Line: Dial 988 www.sama.gov/find-help/987 Harm-Reduction Resources Mobile operations. For more information about receiving supplies: including syringe exchange, fentanyl test strips, and naloxone, or to schedule an appointment: [place] clients call and leave a message for Yoana (ext. 105) or Zbigniew Quigley (ext. 104). [facility] clients call to speak with Zbigniew Waddell [...] is being approved. Online Stress Reduction Resources www.Slicethepie/videos-features/videos/uitjhgmbf-kegewhxwz-7-7-8-breath/ www.themindfulword.org/2013/xdpeiizpr-ghcaryysr-qweqtae-moment/ www.headspace.com/ www.mindful.org/ www.freemindfulness.org/ Employment Agency Working [place] [address] [place] [address] rom@iCrumz.Cronote Providing an opportunity for successful employment and [...] to follow-up with daily infusion clinic - [facility] in [facility] tomorrow at 1 PM. The infectious disease providers well call you to set up a follow-up appointment towards the end of your IV antibiotic course. You also have an orthopedic follow-up at 2:30 PM on 12/11. You may continue with nqcb-cqf-ffmquzq Tylenol as needed for pain, not to exceed 4000 mg daily. We also resumed your methadone dose, you are now on 45 mg daily. You will need to see your [facility] provider for your next methadone dose, it [...] mg, he will need to follow-up at [facility] tomorrow to have your new dose set by them. Stop these medications: - Zofran Follow-up: Future Appointments Date Time Provider Department [facility] LYME CLINICS Your Inpatient Doctor: OLRRIE LUNDBERG HANNAH L BHISE, VIRAJ R MUELLER, CATHERINE L Your Primary Care Provider: @PCPID@ For questions regarding this document or issues relating to this hospitalization on the Medical Service, please contact your inpatient physician through the [facility] Soap Slabber . Issues after hours and on weekends [...] mcg/actuation Inhale 2 puffs into 1 each 11 08/15/2021 HFA Aerosol the lungs every 4 [...] Bernice Coronel RN - 11/29/2021 5:35 PM EDTSummary: Nursing Discharge Summary Nursing Discharge Summary Soledad Alvin Ramos??is a 66 y.o.??male??with hx of EtOH abuse with alcoholic neuropathy and chronic b/l foot wounds (previous osteomyelitis), prior left 4th- 5th amputations, COPD on 2 L O2 at home, opioid use disorder on methadone and mild cognitive impairment presented 11/18/21??for admission to [facility]??(transferred from [facility] ED) at the request of the orthopedic surgery service for necrotizing soft tissue infection of the right foot/great toe. A&Ox3-4, forgetful but easily reoriented. Anxious, Ativan given once w/ relief. VSS on RA. Telemetry unremarkable, HR 70-80s NSR. Lungs diminished throughout, denies SOB/CUNHA & refusing nebs at this time. RUE PICC c/d/i, placed for fpc abx treatment. All meds given per MAR. Continues on probiotics for diarrhea. RLE amputation [...] ??? Patient has active durable power of regulatory attorney (DPOA) designee for healthcare ??? Methadone dependence [...] spent >30 minutes (Day of Discharge Code 01595) involved in the final examination of the [...] cognitive impairment presenting for admission from the [facility] (transferred from [facility] ED) at the request of the [...] for physical therapy treatment session for continuation ofPO. Pt was pleasant and participated in therapy [...] and to mobilize. - NOT MET, recommending 02/12 supervision for safety and CGA for functional [...] plan as stated. Time IN / OUT: 4563-9863 Total Minutes, Physical Therapy: 25 Billing Code: Functional activity x 2 Radha Pierre, PT Pager: [phone] Physical Therapy Inpatient Rehabilitation Department Malinda Díaz [...] Events: - Unable to reach provider at [facility] as they are currently sick and will [...] data in the 24 hours ending 11/28/21 175 Patient Vitals for the past 168 hrs: Weight 11/26/21922 91.9 kg (202 lb 11.2 oz) BMI: Weight: 91.9 kg (202 lb 11.2 oz) (11/26/21922) Estimated Creatinine Clearance: 53.2 mL/min (based on [...] Remarkable for the following: LABS: Recent Labs 11/28/2131411/26/21 0656 11/23/21 1628 WBC 12.8* 12.0* 13.3* HGB 13.9 13.6* 15.2 HCT 41.6 40.5 45.6 PLATELET 504* 418* 389* Recent Labs 11/28/2131411/26/21 0656 11/23/21 1628 NA 141 143 144 K 2.9* 3.6 3.2* CL 102 109* 105 CO2 23 BUN 14 8* 6* CREATININE 1.49 1.20 [...] interpretation Confirmed by fellow MD Devorah, Debra ([id number]) on 11/28/2021 11:56:35 AM Confirmed by MD [...] who have questions please contact the health care companion that requested your imaging first. Foot Min [...] who have questions please contact the health care companion that requested your imaging first. PICC Placement [...] who have questions please contact the health care companion that requested your imaging first. Inpatient Medications: [...] cognitive impairment presented 11/18/21 for admission to [facility] (transferred from [facility] ED) at the request of the [...] withdrawal-suspected #Prolonged QTc - Call patient's clinic ([facility], ) in AM to confirm 90 [...] Tubes/ Drains Wound Vac DVT prophylaxis Lovenox PT/OT/BOARD HAMMER OPERATOR ordered Wound care Per surgical team at this time Anticipated Disposition home with home health, home with supervision (pending progress made while hospitalized) Team Pager (MD Coverage 02/12): [phone] Family Update At bedside 11/28 PCP LISA Levi PA 11/28/2021 Elli Obrien, RN - 11/28/2021 12:17 PM EDT Office of Care Management (OCM /Kassy (ISABEL)Discharge planning ) Service :Med Pager #[phone] e-DH [facility]. [facility] plan of care discussed with Team and Nursing to assessment for continuing care and dischargeneeds. [facility]: 10 DECISION MAKER: Attempt Cardiopulmonary Resuscitation - Inpatient, <no information> Ongoing Issues: ISABEL spoke with she states oxygen is at [...] to facilitate discharge planning. Elli Obrien RN CM Pager # [phone] Grace Montero OT - 11/28/2021 11:31 AM EDT Occupational Therapy Treatment Note Treatment Number OT: 2 Patient Dx: Soledad Rmaos??is a 66 y.o.??male??s/p??right??great toe amputation on 11/23/21 [...] Occupational Therapy: 34 (SCHM x 2) Pager: [phone] Grace Montero OT Occupational Therapy Rehabilitation Department Claudia Long RN - 11/28/2021 6:46 AM EDT Illness Severity [x] Stable [] Watcher [] Unstable Patient Summary Reason for admission: Rapidly progressing R great toe infection requiring amputation. ETOH withdrawal Relevant PMH: ETOH use, peripheral neuropathy, cirrhosis, L 4th+5th toe amps, methadone dependence, COPD, Hep C, HTN, HLD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 appropriate for patient with alarms on and active. 5: Patient meets PACU discharge criteria. Verbal report called to [facility]East nurseIfeanyi. Plans for transport per protocol to [facility]. documented in this encounter H&P [...] closure Edi Childress MD Orthopaedic Surgery Pager [phone] I saw and evaluated the patient on [...] foot I&D. Harley Raymond MD Orthopaedic Surgery [facility] I saw and evaluated the patient [...] Jarad Flores MD, MS Orthopaedic Surgery Attending Antoni Hurt MD - 11/21/2021 6:05 AM [...] properly marked. Harley Raymond MD Orthopaedic Surgery [facility] Valentina Montoya MD - 11/18/2021 5:49 PM EDT Images from the original note were not included. Hospital Medicine Admission History and Physical Patient Name: SOLEDAD CROOKN: [id number] Date of : 1955 Age: 66 y.o. [...] cognitive impairment presenting for admission from the [facility] (transferred from [facility] ED) at the request of the orthopedic surgery service for necrotizing soft tissue infection of the right foot/great toe. History obtained from patient and chart review . Soledad relates that he initially presented to [facility] this AM after rapid progression of his [...] denies any fevers orchills. He presented to [facility] where his labs were significant for a WBC 23k, Cr 1.1, Hgb 13, Glucose 117, Na 137, CRP unknown (not obtained). He was administered clindamycin and Vancomycin [facility] and recommended transfer to [facility] ED for further work-up and evaluation for [...] ??? Patient has active durable power of regulatory attorney (DPOA) designee for healthcare [id number] ??? Verruca plantaris B07.0 ??? Pruritic rash L28.2 ??? Necrotizing fasciitis M72.6 Past Surgical History: Past Surgical History: Procedure Laterality Date ??? PRO AMPUTATION FOOT, TRANSMETATARSAL Left 03/10/2020 AMPUTATION, TRANSMETATARSAL (WRVU 12.71) performed by Geovanna Lewis MD at [facility] MAIN OR ??? PRO TOTAL KNEE ARTHROPLASTY Left 12/13/2015 @TOTAL KNEE ARTHROPLASTY performed by Gordon Mallory MD at [facility] MAIN OR ??? PRO UPPER GI ENDOSCOPY, DIAGNOSTIC Bilateral 08/17/2015 EGD, UPPER GI ENDOSCOPY performed by Trev Hong MD at [facility] ENDOSCOPY ??? REVISION TOTAL HIP ARTHROPLASTY [...] Social History Narrative [place]. 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 Pt has been exposed to [...] on file Patient lives with his in [place]. Former tag and label cutter. Current everyday smoker of 1 pack a [...] patients who have questions please contactthe health care companion that requested your imaging first. SSMENT and PLAN: Soledad Ramos is a 66 y.o. 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 Will start piperacillin tazobactam now. - NPO - PT/OT #opioid use disorder #EtOH abuse #peripheral neuropathy #post-op pain control - call patient's clinic([facility]) in AM to confirm 90 mg [...] of two midnights or is on the [facility] inpatient only procedure list (status C) due to: acute necrotizing soft tissue infection of the right great toe/2nd toe requiring (multiple) debridements and IV antibiotics, acute on chronic osteomyelitis, cellulitis RLE Valentina Montoya MD [facility] Medicine Pager [phone] Alis Dowling MD - 11/18/2021 5:39 PM [...] to the planned procedure. Hand Hygiene: The road oiling truck driver did perform hand hygiene prior to line insertion. Catheter type: PICC Lot number: [id number] Procedure Technique: Skin was prepped with chlorhexidine. [...] on 11/18/21 Source Information Alis Dowling MD [facility] Ed Results for orders placed or performed [...] 3 VBGs No results for input(s): PHVEN, WYD6CPA, PO2VEN, BOD0GML, LACTATEVEN, BEVEN, HGBVEN, L1DJLNT, COHBVEN, METHBVEN, NAWBVEN, KWBVEN, ICAWBVEN, CLWBVEN, GLUCWBVEN [...] 11/18/2021 9:26 PM ED Course as of 11/19/21152 [place] Nov 18, 2021 1740 Ortho Consult: Plan for C, 184 CRP, acute inflammation(!) CRP 265.6 7 Basic Metabolic Panel (non-fasting)(!) 1900 Call to [...] Final Assessment: As above Lorrie Lundberg MD 11/19/211812 Laly Polanco RN - 11/18/2021 3:41 PM EDT Transfer nursing report from [facility] Chinedu Coy RN:coming with R foot infection, weeping edema [...] Orders: OPAT Orders Location: Home, Referred to [facility] Coordination, Referred to Home Health Agency Home Health Services: Registered Nurse, Physical Therapy, Occupational Therapy, Wound care Agency Referrals & Follow-up Care: Contact information for follow-up [address] [place] [address] [facility] [place] [facility] [address] [facility] [address] [facility] [address] [facility] [address] Transportation: family or friend will provide *Spouse [...] of this letter. Tequila Sanchez RN, BSN Welfare Aide - Medicine Office of Care Management Office: Pager: [phone] Consult Note - Reji Monte MD - 11/29/2021 2:22 PM EDT BIT Evaluation Referral source: Nursing referral Reason for referral: Alcohol Use Disorder Opioid Use Disorder. Medication-Assisted Treatment Plan Was patient offered MOUD: No. Reason MOUD not offered?: On MAT prior to admission. Methadone Relevant history: Mr. 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 Pt cleared per PT/OT for dc home per my conversation with NIEVES Padilla. Pt also has been accepted at infusion suite in [facility] for outpt IV ABx infusion. I [...] clinical support of Methadone assisted therapy at [facility] in [place]. Pt likely will discharge today and continue titrating methadone through this clinic. Team has spokenwith [facility] provider who indicated likely plan for retitration [...] clinical support of Methadone assisted therapy at [facility]. 2. Last dose letter/documentation to [facility] including time of discharge and the time and amount (45mg) of last total daily dose of methadone to ensure that outpatient pharmacotherapy can be resumed without interruption. 3. Pt is at increased risk of relapse in this context (albeit long hx lucille sobriety) and may benefit from temporary increase in methadone dose from previous 90mg dose. Plan for now is titration 10mg/day per [facility] provider, monitoring QTc. - If pt remains tachycardic (ie >60bpm) bazette QTc correction may overestimate risk of TdP and likely risk of harm to patient if he relapses is much greater than low/theoretical risk of TdP. [address] [place] [address] Time spent with the patient (min):15 minutes Time spent on case coordination (min): 30 minutes Consult Note - Reij Monte MD - 11/28/2021 12:20 PM EDT [...] Methadone 45mg QD starting tmrw Defer to [facility] for further titration recs when they are [...] maintained. Report given to RN on at 1534. Assessment as filed. Safety maintained. Will continue [...] (PICC) Teaching Sheet Peripherally inserted central catheters ([id number]) (PICC) are used when you need IV [...] midline catheter? PICC lines are used for supervisor long goods treatments. PICC lines may be used for [...] can be set up via the nurse Welfare Aide to help you. What are possible complications [...] Use, and Administration of [employer], [employer] 2006 Care Management - Elli Obrien RN - 11/27/2021 1:38 PM EDT OFFICE OF CARE MANAGEMENT PROGRESS NOTE LOS: Hospital Day 9 days Chart reviewed, care reviewed with primary team and at interdisciplinary rounds. Patient continues to meet inpatient level of care related to: Waiting for final OPAT recommended CM sent referral to [facility] , [facility] and ( [place] - resumption of care ) Orders Pended [...] Referrals: [facility] [address] [address] PHONE: [phone] FAX: [phone] [place], [place] or [facility] Intake office: tel: [phone] [place], [place] Office [place], [place] Office Transportation: family or friend will provide Barriers to discharge: Discharge planning Plan going forward: Care Management will continue to follow and assist with discharge planning and coordination of care as indicated. Anticipated Date of Discharge: 11/28/2021 Office of Care Management Surgery Team Welfare Aide [email or web address] Pager [phone] Consult Note - Brian Kaminski, RAIL DIRECTOR - 11/27/2021 12:31 PM EDT BIT Evaluation Referral source: Nursing referral Reason for referral: Alcohol Use Disorder Opioid Use Disorder. Medication-Assisted Treatment Plan Was patient offered MOUD: No. Reason MOUD not offered?: On MAT prior to admission. 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 He reports his current Methadone dose is 90 mg daily take home medication prescription, having graduated from daily dosing years ago. He is agreeable to consultation between his primary team and [facility] on potential Methadone dose titration and transfer of care. He reports his last heavy use of alcohol was many years ago and reports only occasional use currently 1-2 beers per month and credits past engagement in outpatient counseling for this. [address] [place] [address] Mr. Ramos was open to instruction in [...] clinical support of Methadone assisted therapy at [facility] in [place]. He endorses a remote history of heavy alcohol use and reports 1-2 beers per month currently. He plans to practice 4-7-8 Breathing technique for stress reduction. Interventions delivered: Consulted with care team Mindfulness Based Stress Reduction Motivational interviewing Pharmacologic treatment Recommend: -Primary team consultation with [facility] for potential Methadone dose titration and transfer of care. Plan: 1. Patient plans to remain abstinent from illicit opioids with the ongoing clinical support of Methadone assisted therapy at [facility]. 2. Patient plans to practice 4-7-8 Breathing [...] 15 minutes Consult Note - Terrance Peres, [facility] - 11/27/2021 10:54 AM EDT Clinical Pharmacist Note - VancFD Soledad Ramos [id number] 1955 Soledad Ramos is a 66 y.o. [...] Alternately, during off-hours (9p-7a) you may call [phone] to contact a pharmacist. TERRANCE PERES RPH [...] ADLs]: Hands on Surveillance [continuous indirect monitoring]: Adrianoo on Patient-specific fall prevention interventions for sensory [...] Flores MD - 11/25/2021 8:54 AM EDT [facility] Operative Note Patient Name: Soledad Ramos : [id number] MR#: [id number] Case Date: 11/25/2021 Surgeon: Surgeon(s) and Role: [...] Flores MD - 11/23/2021 1:01 PM EDT [facility] Operative Note Patient Name: Soledad Ramos : [id number] MR#: [id number] Case Date: 11/23/2021 Surgeon: Surgeon(s) and Role: [...] grossly agitated and confused at baseline requiring shavon and multipoint restraints. Given his baseline state [...] 4th ray amputation), who was admitted to [facility] on 11/18 as a transfer from [facility] for necrotizing soft tissue infection of the right great toe,where he presented for rapid progression of redness and swelling of the wound overnight. At [facility], patient was stable but with WBC 23k, and was started on Clindamycin and Vancomycin before transfer to [facility]. Noted to have sinus tract on plantar surface. On arrival to [facility], Soledad was afebrile and hemodynamically stable. He [...] distal femur. He was taken for g uillpauline partial first ray resection on 11/18 with [...] allergies. Social History: Lives with his in [place], [place]. One dog. Social drinking, current smoker, [...] 4th ray amputation), who was admitted to [facility] on 11/18 as a transfer from [facility] for necrotizing soft tissue infection of [...] MD 11/23/2021 10:44 AM Green team pager [phone] Associated attestation - Gordon Phan MD - [...] , soft wrist and ankle restraints and shavon vest , call light within reach, purposeful q30 min rounding Patient-specific fall prevention interventions for sensory deficits provided, if applicable: [X] N/A CARE PLAN GOAL OUTCOME EVALUATION: Consult Note - Lila Rowan [facility] - 11/22/2021 2:38 PM EDT ?? The [...] have. Alternately, during off-hours you may call [phone] to contact a pharmacist. Care Management - [...] Anticipated Date of Discharge: 11/26/2021 Jaclyn Fry [facility] [phone] Consult Note - Celina Arce RN - 11/22/2021 1:15 PM EDT PICC line placement canceled for this patient due to being unable to obtain consent from after multiple attempts. Consult Note - Jeanie Tenorio [facility] - 11/22/2021 10:44 AM EDT Clinical Pharmacist Note-Vanc Soledad Ramos [id number] 1955 Soledad Ramos is a 66 y.o. [...] have. Alternately, during off-hours you may call [phone] to contact a pharmacist. Jeanie Tenorio RPH Pager [phone] Plan of Care - Zbigniew Riddle RN - 11/22/2021 1:18 AM EDT OUTCOME EVALUATION NOTE: OUTCOME SUMMARY: Pt alert to place and self, not redirectable. Remains in 4 point soft restraints and shavon. Hypertensive w/ SBP into 180's, sched metop [...] RA, except hypertensive up to the 160s/90s. MD aware. Pt endorses 8/10 pain in R [...] ADLs]: Hands on Surveillance [continuous indirect monitoring]: Nara on Patient-specific fall prevention interventions for sensory [...] x1 for RASS score of over -1. [place] and soft wrist restraints removed. Pt up [...] WoundVac maintained at -125 continuous suction. Endorses 5-810 pain RLE, given PRNsubQ dilaudid x3. Pt [...] Ramos RPH - 11/19/2021 2:42 PM EDT [facility] Med[facility] List Update for Medication Reconciliation [...] Covid Vaccination Status: 1st & 2nd dose (pfizer) Last COVID test: Lab Results Component Value Date [id number] Not Detected 03/09/2020 Past medical History: Past [...] Padmini would be surrogate decision maker per [place] surrogate decision making law. (Only good for 180 days) Any patient receiving care at [facility] must abide by [place] law. The hierarchy for surrogate decision making [...] (i) The agent with financial power of regulatory attorney or a conservator appointed in accordance with [...] standard (knee scooter) Home Address confirmed as: [address] [facility] [address] Social & Family Supports: All names listed below confirmed with patient as current and correct Extended Emergency Contact Information Primary Emergency Contact: Padmini Ramos [facility] Relation: Spouse Secondary Emergency Contact: Sparkle Khan [facility] Relation: Child Current Care Provided by: self [...] SUPPLEMENT Prescription Coverage: Yes Preferred Pharmacy: [facility] [place] [address] [address] [address] [facility] Home Delivery - [place], [place] - [address] [facility] [address] [facility] [address] [facility] [address] [place] [address] [address] [facility] [address] [facility] [address] [place] Status: Patient is a : No Primary Care Provider: Brian Fall, LISA [phone] Patient/Caregiver Goals of Treatment: Return home Potential Needs for Transition of Care: none Agency Referrals: Not Applicable at this time pending hospital course and PT OT recommendations Transportation: no concerns Transportation Anticipated: family or friend will provide Concerns to be Addressed: no discharge needs identified Assessment: Patient is admitted to [facility] service for R toe amputation and I&D [...] with transition of care planning. [facility] [phone] Plan of Care - Araceli Lee RN [...] Baker MD - 11/18/2021 9:35 PM EDT [facility] Operative Note Patient Name: Soledad Ramos : [id number] MR#: [id number] Case Date: 11/18/2021 Surgeon: Surgeon(s) and Role: [...] comorbid 66-year-old male who [facility] worsening for the past 3 [...] low continuous, 1 black sponge. - Appreciate [facility] medicine care Attestation: Case Date: 11/18/2021 I was present and I participated during the entire procedure (does not need to include opening and closing). Sammy Baker MD 11/19/2021 Brief Op Note - Sammy Baker MD - 11/18/2021 9:30 PM EDT Brief Operative Note Patient Name: Soledad Ramos : [id number] MR#: [id number] Case Date: 11/18/2021 Surgeon: Surgeon(s) and Role: [...] systemically unwell. He was initially seen at [facility] today and presented there. See my prior telephone encounter for telephone consultation in which I requested he be transferred here for further evaluation and management with orthopedic surgery consultation. At [facility] his white count was 20 3K, his [...] ??? Patient has active durable power of regulatory attorney (DPOA) designee for healthcare ??? Methadone dependence [...] output data in the 24 hours ending 11/18/21 0811 There is no height or weight on [...] concerning given acuity of findings and progression. INEC 6. Does not appear to be conssitent [...] bedside with me Please page Orthopaedic consults ([phone]) with any questions or concerns. Alis Dowling MD P. [phone] 11/18/21 5:31 PM Future Appointments Date Time Provider Department Center 01/15/2022 12:[address] [facility] [address] [facility] [address] [facility] Rad Associated attestation - Sammy Baker [...] - 11/18/2021 2:55 PM EDT Coming from [facility] with concern for Right foot wound infection progression. Complex PMH includes Hep C, COPD on supplemental 02. WBC 23. Ortho requests patient be NPO, CT of lower extremity to evaluate soft tissue infection. Consult ortho/medicine if admission needed. documented in this encounter Plan of Treatment Upcoming Encounters Date Type Specialty Care Team Description 12/11/2021 Appointment Radiology 12/11/2021 Office Visit Orthopaedics Marion Tavera APRN [facility] ORTHOPAEDIC SURG [place], [place] 0[address] (Wo rk) 01/15/2022 Appointment Radiology Stiven Cervantes MD [facility] Pulmonary Medici [place], [place] 0[address] (Wo rk) Scheduled Orders Name [...] Esquivel, Understanding Action Plan 9:07 AM EDT) [facility] Note: Formatting of this note might be [...] n the results section. HC VENIPUNCTURE Routine 11/22/2021 6:07 Results f [...] i n the results section. AMPUTATION TOE, Routine 11/18/2021 8:14 METATARSO-PHALANGEAL PM [...] 494 ms MUSE SYSTEM (Bezet) Calculated P [place] 52 degrees MUSE SYSTEM Calculated R [place] 27 degrees MUSE SYSTEM Calculated T [place] 57 degrees MUSE SYSTEM INTERPRETATION Normal sinus rhythm with sinus arrhythmia MUSE SYSTEM borderline EKG When compared with ECG of 27-NOV-2021 11:44, Criteria for Inferior infarct are no longer Present I personally reviewed the tracing and edited the fellows int erpretation Confirmed by fellow MD Alexandra, Marco A ([id number]) on 022 3:05:39 PM Confirmed by Najma Ren ([id number]) on 11/29/2021 6:50:48 P M Specimen Anatomical Collection Method Collection Time Receive d Time (Source) Location / / Volume Laterality 11/29/2021 1:02 PM 6:50 EDT PM EDT Jennifer Martinez MD ECG ORDERABLES Performing Organization Address City/State/ZIP Code Phon e Number MUSE SYSTEM (ABNORMAL) Differential, Automated (11/29/2021 3:40 AM EDT) [facility] gist Method Time Signature Neutrophils % 62.4 % [facility] Neutr Abs (ANC) 7.80 (H) 1.70 - [facility] 6.10 [facility] x10(3)/[facility] LABORATORY Lymphocytes % 23.8 % [facility] Lymphocytes Abs 3.0 0.9 - 3.2 [facility] x10(3)/[facility] LABORATORY Monocytes % 6.0 % [facility] Monocyte Abs 0.8 0.3 - 0.9 [facility] x10(3)/[facility] LABORATORY Eosinophils % 5.7 % [facility] Eosinophils Abs 0.7 (H) 0.0 - 0.4 [facility] x10(3)/[facility] LABORATORY Basophils % 1.3 % [facility] Basophils Abs 0.2 (H) 0.0 - 0.1 [facility] x10(3)/[facility] LABORATORY Immature Gran % 0.80 % [...] Gran Abs 0.10 (H) 0.00 - 0.04 x10(3)/[facility] LABORATORY Specimen Anatomical Collection Method Collection Time Receive d Time (Source) Location / / Volume Laterality Blood 11/29/2021 3:40 AM 2 4:00 EDT AM EDT Resulting Agency Comment Spec In Lab NIEVES Peoples HEMATOLOGY ORDERABLES Performing Organization Address City/State/ZIP Code Phon e Number [place] [id number] HOSPITAL LABORATORY Drive (ABNORMAL) Hemogram (11/29/2021 3:40 AM EDT) Analysis Performed At Patho logist Time Signature WBC 12.5 (H) 4.0 - 9.5 [facility] x10(3)/[facility] LABORATORY RBC 4.34 (L) 4.58 - [facility] 5.54 [facility] x10(6)/[facility] LABORATORY Hemoglobin 13.9 13.7 - [facility] 16.5 g/dL [facility] Hematocrit 41.3 40.5 - [facility] % [facility] MCV 95.2 (H) 82.9 - [facility] 93.1 fL [facility] MCH 32.0 27.5 - [facility] 32.1 pg [facility] MCHC 33.7 32.0 - [facility] g/dL [facility] Platelets 494 (H) 145 - 357 [facility] x10(3)/[facility] LABORATORY RDWSD 49.2 (H) 36.0 - [facility] 45.0 [facility] LABORATORY RDWCV 14.2 (H) 11.4 - [facility] 13.8 % [facility] MPV 9.5 7.6 - 12.9 [facility] LABORATORY nRBC % Auto 0.0 % [facility] nRBC Abs Auto 0.000 0.000 - [facility] 0.000 [facility] x10(3)/[facility] LABORATORY Specimen Anatomical Collection Method Collection Time Receive d Time (Source) Location / / Volume Laterality Blood 11/29/2021 3:40 AM 2 4:00 EDT AM EDT Resulting Agency Comment Spec In Lab NIEVES Peoples HEMATOLOGY ORDERABLES Performing Organization Address City/State/Z[place] [address] (ABNORMAL) Basic Metabolic Panel (non-fasting) (11/29/2021 3:40 AM EDT) athologist Signature Glucose Lvl 110 65 - 199 [facility] mg/dL [facility] Comment: Diabetes: >=200 mg/dL plus symp toms BUN 22 (H) 10 - 20 mg/dL [facility] Creatinine 1.47 0.80 - 1.50 mg/dL [facility] Sodium 138 135 - 145 mmol/L [facility] Potassium 3.7 3.5 - 5.0 mmol/L [facility] Comment: Please note: ??Patients [...] Anion Gap 12 5 - 15 mmol/L [facility] Calcium 9.2 8.5 - 10.5 mg/dL [facility] Estimated GFR 52 (L) [...] Organization Address City/State/ZIP Code Phon e Number [address] Potassium (11/28/2021 6:30 PM EDT) P athologist Signature Potassium 3.6 3.5 - 5.0 [facility] mmol/L [facility] Comment: Please note: ??Patients with [...] Organization Address City/State/ZIP Code Phon e Number [address] Magnesium (11/28/2021 3:15 AM EDT) P athologist Signature Magnesium 0.74 0.69 - 1.07 [facility] mmol/L [facility] Specimen Anatomical Collection Method Collection Time Receive d Time (Source) Location / / Volume Laterality Blood Venous Draw / 11/28/2021 3:15 AM 11/29/19 3:25 Unknown EDT AM EDT Resulting Agency Comment Spec In Lab Stephanie Parrish MD CHEMISTRY ORDERABLES Performing Organization Address City/State/ZIP [place] [address] [facility] LABORATORY Drive (ABNORMAL) Differential, Automated (11/28/2021 3:15 AM EDT) Patholo gist Method Time Signature Neutrophils % 62.7 % [facility] Neutr Abs (ANC) 8.02 (H) 1.70 - [facility] 6.10 [facility] x10(3)/[facility] LABORATORY Lymphocytes % 24.2 % [facility] Lymphocytes Abs 3.1 0.9 - 3.2 [facility] x10(3)/[facility] LABORATORY Monocytes % 6.6 % [facility] Monocyte Abs 0.8 0.3 - 0.9 [facility] x10(3)/[facility] LABORATORY Eosinophils % 4.7 % [facility] Eosinophils Abs 0.6 (H) 0.0 - 0.4 [facility] x10(3)/[facility] LABORATORY Basophils % 0.8 % [facility] Basophils Abs 0.1 0.0 - 0.1 [facility] x10(3)/[facility] LABORATORY Immature Gran % 1.00 % [facility] Comment: Immature granulocytes(IG's)percentage an d absolute count will include metamyelocytes, myelocytes, and promyelo cytes. Blood smears from CBCs yielding IG's will be scanned manually for concor dance. If this scan disagrees with the automated IG or if promyelocytes are not ed, a manual differential will be performed. Shannan Gran Abs 0.13 (H) 0.00 - 0.04 x10(3)/[facility] LABORATORY Specimen Anatomical Collection Method Collection Time Receive d Time (Source) Location / / Volume Laterality Blood 11/28/2021 3:15 AM 2 3:23 EDT AM EDT Resulting Agency Comment Spec In Lab NIEVES Peoples HEMATOLOGY ORDERABLES Performing Organization Address City/State/Z[place] [address] (ABNORMAL) Hemogram (11/28/2021 3:15 AM EDT) Analysis Performed At Patho logist Time Signature WBC 12.8 (H) 4.0 - 9.5 [facility] x10(3)/[facility] LABORATORY RBC 4.38 (L) 4.58 - [facility] 5.54 [facility] x10(6)/[facility] LABORATORY Hemoglobin 13.9 13.7 - [facility] 16.5 g/dL [facility] Hematocrit 41.6 40.5 [facility] 48.5 % [facility] MCV 95.0 (H) 82.9 - [facility] 93.1 [facility] LABORATORY MCH 31.7 27.5 - [facility] 32.1 pg [facility] MCHC 33.4 32.0 - [facility] 35.7 g/dL [facility] Platelets 504 (H) 145 - 357 [facility] x10(3)/[facility] LABORATORY RDWSD 49.2 (H) 36.0 - [facility] 45.0 [facility] LABORATORY RDWCV 14.3 (H) 11.4 - [facility] 13.8 % [facility]ORY MPV 9.3 7.6 - 12.9 [facility] LABORATORY nRBC % Auto 0.0 % [facility] nRBC Abs Auto 0.000 0.000 - [facility] 0.000 [facility] x10(3)/[facility] LABORATORY Specimen Anatomical Collection Method Collection Time Receive d Time (Source) Location / / Volume Laterality Blood 11/28/2021 3:15 AM 2 3:23 EDT AM EDT Resulting Agency Comment Spec In Lab NIEVES Peoples HEMATOLOGY ORDERABLES Performing Organization Address City/State/ZIP [place] [address] (ABNORMAL) Basic Metabolic Panel (non-fasting) (11/28/2021 3:15 AM EDT) athologist Signature Glucose Lvl 114 65 - 199 [facility] mg/dL [facility] Comment: Diabetes: >=200 mg/dL plus symp toms BUN 14 10 - 20 mg/dL [facility] Comment: result rechecked-sf Creatinine 1.49 0.80 - 1.50 mg/dL [facility] Sodium 141 135 - 145 mmol/L [facility] Potassium 2.9 (Critical) 3.5 - 5.0 mmol/L [facility] Comment: Called by: , Read back by: claudia velazquez, Date/Time:11/28/21 04:00. Please note: ??Patients with WBC >100,00 0 may have falsely elevated Potassium levels. ??For accurate Potassium quantif ication in these patients send serum separator tube (gold top) for subsequent determinations. ??Contact the Clinical Chemistry Laboratory if there are any qu estions. Chloride 102 98 - 107 mmol/L [facility] CO2 25 22 - 31 mmol/L [facility] Anion Gap 14 5 - 15 mmol/L [facility] Calcium 9.0 8.5 - 10.5 mg/dL [facility] Estimated GFR 51 (L) >=60 mL/min/1.73 m?? [facility] [...] Organization Address City/State/ZIP Code Phon e Number [place] [id number] HOSPITAL LABORATORY Drive Place PICC Line: Contact Vascular Access Page [phone] Extremity to exclude: No restrictions; Is PICC [...] the planned procedu re. 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 Catheter type: PICC Lot number: [id number] Procedure Technique: Skin was prepped with chlorhexidine. [...] who have questions please contact the health care companion that requested your imaging first. ? Narrative [...] ho have questions please contact the health care companion that requested your imaging first. Jennifer aMrtinez MD IMG FLUORO ORDERABLES EKG 12 Lead (11/27/2021 11:44 AM EDT) Component Value Ref Range Test Analysis Performed Pathologis t Method Time At Signature Ventricular rate 100 BPM MUSE SYSTEM Atrial Rate 100 BPM MUSE SYSTEM P-R Interval 150 ms MUSE SYSTEM QRS Duration 68 ms MUSE SYSTEM Q-T Interval 384 ms MUSE SYSTEM QTC Calculated 495 ms MUSE SYSTEM (Bezet) Calculated P [place] 38 degrees MUSE SYSTEM Calculated R [place] -7 degrees MUSE SYSTEM Calculated T [place] 37 degrees MUSE SYSTEM INTERPRETATION Normal sinus rhythm MUSE SYSTEM Septal infarct (cited on or before 20-NOV-2021) Inferior infarct , age undetermined Abnormal ECG When compared with ECG of 20-NOV-2021 12:47, No significant change was found I personally reviewed the tracing and edited the fellows int erpretation Confirmed by fellow MD Devorah, Debra ([id number]) on 11/28/2021 11: 56:35 AM Confirmed by MD Jacob, Cristian ([id number]) on 11/28/2021 1:18:37 PM Specimen Anatomical Collection Method Collection Time Receive d Time (Source) Location / / Volume Laterality 11/27/2021 11:44 11/28/2021 1:18 AM EDT PM EDT Jennifer Martinez MD ECG ORDERABLES Performing Organization Address City/[facility]/ZIP Code Phon e Number MUSE SYSTEM C. Difficile Screen (11/26/2021 1:47 PM EDT) [facility] Method Time Signature C Diff Screen See [...] - GENERAL ORDER SILAS Performing Organization Address City/[facility]/Z[place] [address] CK (11/26/2021 6:56 AM EDT) P athologist Signature CK, Total 74 0 - 200 [facility] LABORATORY Specimen Anatomical Collection Method Collection Time Receive d Time (Source) Location / / Volume Laterality Blood Venous Draw / 11/26/2021 6:56 AM 11/27/19 7:32 Unknown EDT AM EDT Resulting Agency Comment Spec In Lab NIEVES Peoples CHEMISTRY ORDERABLES Performing Organization Address City/State/Z[place] [address] [facility] LABORATORY Drive Magnesium (11/26/2021 6:56 AM EDT) P athologist Signature Magnesium 0.75 0.69 - 1.07 [facility] mmol/L [facility]ORY Specimen Anatomical Collection Method Collection Time Receive d Time (Source) Location / / Volume Laterality Blood Venous Draw / 11/26/2021 6:56 AM 11/27/19 7:32 Unknown EDT AM EDT Resulting Agency Comment Spec In Lab NIEVES Peoples CHEMISTRY ORDERABLES Performing Organization Address City/State/ZIP Code Phon e Number [address] (ABNORMAL) Differential, Automated (11/26/2021 6:56 AM EDT) Patholo gist Method Time Signature Neutrophils % 70.3 % [facility] Neutr Abs (ANC) 8.41 (H) 1.70 - [facility] 6.10 [facility] x10(3)/[facility] LABORATORY Lymphocytes % 15.1 % [facility] Lymphocytes Abs 1.8 0.9 - 3.2 [facility] x10(3)/[facility] LABORATORY Monocytes % 7.9 % [facility] Monocyte Abs 1.0 (H) 0.3 - 0.9 [facility] x10(3)/[facility] LABORATORY Eosinophils % 4.4 % [facility] Eosinophils Abs 0.5 (H) 0.0 - 0.4 [facility] x10(3)/[facility] LABORATORY Basophils % 1.0 % [facility] Basophils Abs 0.1 0.0 - 0.1 [facility] x10(3)/[facility] LABORATORY Immature Gran % 1.30 % [facility] Comment: Immature granulocytes(IG's)percentage an d absolute count will include metamyelocytes, myelocytes, and promyelo cytes. Blood smears from CBCs yielding IG's will be scanned manually for concor dance. If this scan disagrees with the automated IG or if promyelocytes are not ed, a manual differential will be performed. Shannan Gran Abs 0.15 (H) 0.00 - 0.04 x10(3)/[facility] LABORATORY Specimen Anatomical Collection Method Collection Time Receive d Time (Source) Location / / Volume Laterality Blood 11/26/2021 6:56 AM 7:10 EDT AM EDT Resulting Agency Comment Spec In Lab Harley Raymond MD HEMATOLOGY ORDERABLES Performing Organization Address City/State/Z[place] [address] (ABNORMAL) Hemogram (11/26/2021 6:56 AM EDT) Analysis Performed At Patho logist Time Signature WBC 12.0 (H) 4.0 - 9.5 [facility] x10(3)/[facility] LABORATORY RBC 4.26 (L) 4.58 - [facility] 5.54 [facility] x10(6)/[facility] LABORATORY Hemoglobin 13.6 (L) 13.7 - [facility] 16.5 g/dL [facility]ORY Hematocrit 40.5 40.5 - [facility] 48.5 % [facility]ORY MCV 95.1 (H) 82.9 - [facility] 93.1 [facility] LABORATORY MCH 31.9 27.5 - [facility] 32.1 pg [facility]ORY MCHC 33.6 32.0 - [facility] 35.7 g/dL [facility] Platelets 418 (H) 145 - 357 [facility] x10(3)/[facility] LABORATORY RDWSD 49.8 (H) 36.0 - [facility] 45.0 [facility] LABORATORY RDWCV 14.4 (H) 11.4 - [facility] 13.8 % [facility] LABORATORY MPV 9.3 7.6 - 12.9 [facility] LABORATORY nRBC % Auto 0.0 % [facility] nRBC Abs Auto 0.000 0.000 - [facility].000 [facility] x10(3)/[facility] LABORATORY Specimen Anatomical Collection Method Collection Time Receive d Time (Source) Location / / Volume Laterality Blood 11/26/2021 6:56 AM 2 7:10 EDT AM EDT Resulting Agency Comment Spec In Lab Harley Raymond MD HEMATOLOGY ORDERABLES Performing Organization Address City/State/Z[place] [address] (ABNORMAL) Basic Metabolic Panel (non-fasting) (11/26/2021 6:56 AM EDT) athologist Signature Glucose Lvl 105 65 - 199 [facility] mg/dL [facility] Comment: Diabetes: >=200 mg/dL plus symp toms BUN 8 (L) 10 - 20 mg/dL [facility] Creatinine 1.20 0.80 - 1.50 mg/dL [facility] Sodium 143 135 - 145 mmol/L [facility] Potassium 3.6 3.5 - 5.0 mmol/L [facility] Comment: Please note: ??Patients with WBC >100,00 0 may have falsely elevated Potassium levels. ??For accurate Potassium quantif ication in these patients send serum separator tube (gold top) for subsequent determinations. ??Contact the Clinical Chemistry Laboratory if there are any qu estions. Chloride 109 (H) 98 - 107 mmol/L [facility] CO2 22 22 - 31 mmol/L [facility] Anion Gap 12 5 - 15 mmol/L [facility] Calcium 8.8 8.5 - 10.5 mg/dL [facility] Estimated GFR 66 >=60 mL/min/1.73 m?? [facility] [...] Martinez MD CHEMISTRY ORDERABLES Performing Organization Address [facility] [place] [address] Anaerobic Culture (11/25/2021 9:00 AM EDT) [employer]Jamgl[employer] Method Time Signature Anaerobic No anaerobic [facility] Culture organisms [facility] LABORATORY Specimen Anatomical Collection Method Collection Time Receive d Time (Source) Location / / Volume Laterality Leg 11/25/2021 9:00 AM 2 EDT 10:33 AM EDT Comment: Right foot proximal resection s ite first metatarsal. Resulting Agency Comment Spec In Lab Jarad Flores MD MICROBIOLOGY - GENERAL ORDER SILAS Performing Organization Address [facility] [place] [address] (ABNORMAL) Tissue culture (11/25/2021 9:00 AM EDT) Component Value Ref Test Analysis Performed At [employer] Range Method Time Signature Tissue Rare Coagulase negative Staphylococcus species [facility] Culture One colony of Coagulase negative Staphylococcus species #2 [place] Rare Corynebacterium species M [facility] Susceptibilities previously reported HOSPITAL (A) LABORATORY Gram Stain No Neutrophils seen. [facility] No microorganisms seen. [facility] (A) [facility] Organism Coagulase negative [place] Staphylococcus [place] species (A) [facility] Organism Corynebacterium [place] species (A) [facility] LABOR[facility]ORY Specimen Anatomical Collection Method Collection Time Receive d Time (Source) Location / / Volume Laterality Leg 11/25/2021 9:00 AM 2 EDT 10:33 AM EDT Comment: Right foot proximal resection s ite first metatarsal. Resulting Agency Comment Spec In Lab Jarad Flores MD MICROBIOLOGY - GENERAL ORDER SILAS Performing Organization Address [facility] Ph[place] [facility] [place] [address] XR Foot Min 3 [...] who have questions please contact the health care companion that requested your imaging first. ? Narrative [...] ho have questions please contact the health care companion that requested your imaging first. Afshin Rogers MD IMG DX ORDERABLES (ABNORMAL) Differential, Automated (11/23/2021 4:28 PM EDT) [facility] Method Time Signature Neutrophils % 74.2 % [facility] Neutr Abs (ANC) 9.89 (H) 1.70 - [facility] 6.10 [facility] x10(3)/[facility] LABORATORY Lymphocytes % 13.0 % [facility] Lymphocytes Abs 1.7 0.9 - 3.2 [facility] x10(3)/[facility] LABORATORY Monocytes % 9.2 % [facility] Monocyte Abs 1.2 (H) 0.3 - 0.9 [facility] x10(3)/[facility] LABORATORY Eosinophils % 1.9 % [facility] Eosinophils Abs 0.2 0.0 - 0.4 [facility] x10(3)/[facility] LABORATORY Basophils % 0.7 % [facility] Basophils Abs 0.1 0.0 - 0.1 [facility] x10(3)/[facility] LABORATORY Immature Gran % 1.00 % [facility] Comment: Immature granulocytes(IG's)percentage an d absolute count will include metamyelocytes, myelocytes, and promyelo cytes. Blood smears from CBCs yielding IG's will be scanned manually for concor dance. If this scan disagrees with the automated IG or if promyelocytes are not ed, a manual differential will be performed. Shannan Gran Abs 0.13 (H) 0.00 - 0.04 x10(3)/[facility] LABORATORY Specimen Anatomical Collection Method Collection Time Receive d Time (Source) Location / / Volume Laterality Blood 11/23/2021 4:28 PM 2 4:55 EDT PM EDT Resulting Agency Comment Spec In Lab Harley Raymond MD HEMATOLOGY ORDERABLES Performing Organization Address City/State/Z[place] [address] (ABNORMAL) Hemogram (11/23/2021 4:28 PM EDT) Analysis Performed At Patho logist Time Signature WBC 13.3 (H) 4.0 - 9.5 [facility] x10(3)/[facility] LABORATORY RBC 4.79 4.58 - [facility] x10(6)/[facility] LABORATORY Hemoglobin 15.2 13.7 - [facility] 16.5 g/dL [facility]ORY Hematocrit 45.6 40.5 - [facility] 48.5 % [facility]ORATORY MCV 95.2 (H) 82.9 - [facility] 93.1 [facility] LABORATORY MCH 31.7 27.5 - [facility] 32.1 pg [facility]ORATORY MCHC 33.3 32.0 - [facility] 35.7 g/dL [facility]ORY Platelets 389 (H) 145 - 357 [facility] x10(3)/[facility] LABORATORY RDWSD 48.6 (H) 36.0 - [facility] 45.0 [facility] LABORATORY RDWCV 14.0 (H) 11.4 - [facility] 13.8 % [facility] LABORATORY MPV 9.2 7.6 - 12.9 [facility] LABORATORY nRBC % Auto 0.0 % [facility] nRBC Abs Auto 0.000 0.000 - [facility] 0.000 [facility] x10(3)/[facility] LABORATORY Specimen Anatomical Collection Method Collection Time Receive d Time (Source) Location / / Volume Laterality Blood 11/23/2021 4:28 PM 2 4:55 EDT PM EDT Resulting Agency Comment Spec In Lab Harley Raymond MD HEMATOLOGY ORDERABLES Performing Organization Address City/State/ZIP Code Phon e Number [address] Phosphorus (11/23/2021 4:28 PM EDT) athologist Signature Phosphorus 4.0 2.5 - 4.5 [facility] mg/dL [facility] LABORATORY Specimen Anatomical Collection Method Collection Time Receive d Time (Source) Location / / Volume Laterality Blood 11/23/2021 4:28 PM 4:55 EDT PM EDT Resulting Agency Comment Spec In Lab Jennifer Martinez MD CHEMISTRY ORDERABLES Performing Organization Address City/[facility]/ZIP Code Phon e Number [address] (ABNORMAL) Basic Metabolic Panel (non-fasting) (11/23/2021 4:28 PM EDT) athologist Signature Glucose Lvl 96 65 - 199 [facility] mg/dL [facility] Comment: Diabetes: >=200 mg/dL plus symp toms BUN 6 (L) 10 - 20 mg/dL [facility] Creatinine 1.28 0.80 - 1.50 mg/dL [facility] Sodium 144 135 - 145 mmol/L [facility] Potassium 3.2 (L) 3.5 - 5.0 mmol/L [facility] Comment: Please note: ??Patients with WBC >100,00 0 may have falsely elevated Potassium levels. ??For accurate Potassium quantif ication in these patients send serum separator tube (gold top) for subsequent determinations. ??Contact the Clinical Chemistry Laboratory if there are any qu estions. Chloride 105 98 - 107 mmol/L [facility] CO2 23 22 - 31 mmol/L [facility] Anion Gap 16 (H) 5 - 15 mmol/L [facility] LABORATORY Calcium 9.2 8.5 - 10.5 mg/dL [facility] LABORATORY Estimated GFR 61 >=60 mL/min/1.73 m?? [facility] LABORATORY [...] Rogers MD CHEMISTRY ORDERABLES Performing Organization Address City/[facility]/[place] [address] Anaerobic Culture (11/23/2021 1:06 PM EDT) [employer]™ Method Time Signature Anaerobic No anaerobic [place] WAVERLY Culture organisms [facility] LABORATORY Specimen Anatomical Collection Method Collection Time Receive d Time (Source) Location / / Volume Laterality Bone TOE STRUCTURE / 11/23/2021 1:06 PM 2021 2:36 Unknown EDT PM EDT Comment: First right metatarsal resectio n #3 Resulting Agency Comment Spec In Lab Jarad Flores MD MICROBIOLOGY - GENERAL ORDER SILAS Performing Organization Address City/State/[place] [address] (ABNORMAL) Bone Culture (11/23/2021 1:06 PM EDT) Component Value Ref Test Analysis Performed At [employer]™ Range Method Time Signature Bone Culture Rare Coagulase negative Staphylococcus species [place] Susceptibilities previously reported WAVERLY () [facility] LABORATORY Gram Stain No Neutrophils seen. [place] No microorganisms seen. [facility] (A) [facility] LABORATORY Organism Coagulase negative [place] Staphylococcus EDGAR species (A) [facility] LABORATORY Specimen Anatomical Collection Method Collection Time Receive d Time (Source) Location / / Volume Laterality Bone TOE STRUCTURE / 11/23/2021 1:06 PM 2021 2:36 Unknown EDT PM EDT Comment: First right metatarsal resectio n #3 Resulting Agency Comment Spec In Lab Jarad Flores MD MICROBIOLOGY - GENERAL ORDER SILAS Performing Organization Address City/[facility]/[place] [address] Anaerobic Culture (11/23/2021 1:06 PM EDT) [employer]™ Method Time Signature Anaerobic No anaerobic [place] CHASEEDGAR Culture organisms [facility] LABORATORY Specimen Anatomical Collection Method Collection Time Receive d Time (Source) Location / / Volume Laterality Bone TOE STRUCTURE / 11/23/2021 1:06 PM 2021 2:39 Unknown EDT PM EDT Comment: First right metatarsal resectio n #2 Resulting Agency Comment Spec In Lab Jarad Flores MD MICROBIOLOGY - GENERAL ORDER SILAS Performing Organization Address City/[facility] [place] [address] (ABNORMAL) Bone Culture (11/23/2021 1:06 PM EDT) Component Value Ref Test Analysis Performed At [employer]™ Range Method Time Signature Bone Culture Rare Coagulase negative Staphylococcus species [place] Susceptibilities previously reported WAVERLY (A) [facility] LABORATORY Gram Stain No Neutrophils seen. [place] No microorganisms seen. [facility] (A) [facility] LABORATORY Organism Coagulase negative [place] Staphylococcus EDGAR species (A) [facility] LABORATORY Specimen Anatomical Collection Method Collection Time Receive d Time (Source) Location / / Volume Laterality Bone TOE STRUCTURE / 11/23/2021 1:06 PM 2021 2:38 Unknown EDT PM EDT Comment: First right metatarsal resectio n #2 Resulting Agency Comment Spec In Lab Jarad Flores MD MICROBIOLOGY - GENERAL ORDER SILAS Performing Organization Address City/[facility]/ZIP Code Phon e Number [address] Anaerobic Culture (11/23/2021 1:06 PM EDT) [employer]™ Method Time Signature Anaerobic No anaerobic [place] EDGAR Culture organisms [facility] LABORATORY Specimen Anatomical Collection Method Collection Time Receive d Time (Source) Location / / Volume Laterality Bone TOE STRUCTURE / 11/23/2021 1:06 PM 2021 2:37 Unknown EDT PM EDT Comment: First right metatarsal resectio n #1 Resulting Agency Comment Spec In Lab Jarad Flores MD MICROBIOLOGY - GENERAL ORDER SILAS Performing Organization Address City/State/ZIP [place] [address] (ABNORMAL) Bone Culture (11/23/2021 1:06 PM EDT) Component Value Ref Test Analysis Performed At [facility] gist Range Method Time Signature Bone Culture Few Coagulase negative Staphylococcus species : two mo rphologies [place] Rare Corynebacterium species H [facility] () [facility] LABORATORY Gram Stain No Neutrophils seen. [place] No microorganisms seen. [facility] () [facility] LABORATORY Organism Coagulase negative [place] Staphylococcus WAVERLY species () [facility] LABORATORY Organism Coagulase negative [place] Staphylococcus WAVERLY species () [facility] LABORATORY Organism Corynebacterium [place] species (A) [facility] LABORATORY Specimen Anatomical Collection Method Collection Time [...] Comment: Gentamicin is not a ppropriate for [place]-therapy. Coagulase negative staphylococcus Levofloxacin MICROSCAN METH OD [...] Comment: Gentamicin is not a ppropriate for [place]-therapy. Coagulase negative Levofloxacin MICROSCAN METHOD Sensitive staphylococcus [...] - GENERAL ORDER SILAS Performing Organization Address City/[facility] Phon e Number [address] Phosphorus (11/22/2021 6:07 PM EDT) athologist Signature Phosphorus 2.9 2.5 - 4.5 [facility] mg/dL [facility] LABORATORY Specimen Anatomical Collection Method Collection Time Receive d Time (Source) Location / / Volume Laterality Blood 11/22/2021 6:07 PM 6:14 EDT PM EDT Resulting Agency Comment Spec In Lab Afshin Rogers MD CHEMISTRY ORDERABLES Performing Organization Address City/[facility] [place] [address] (ABNORMAL) Vancomycin, trough (11/22/2021 8:29 AM EDT) athologist Signature Vanc Trough 21.4 mg/L [facility] (Critical) [facility] LABORATORY Comment: Called by: , Read back by: Lila Piña mm, Date/Time:11/22/21 09:45. Therapeutic range for complicated infect ions such as bacteremia, endocarditis, osteomyelitis, meningitis, and hospital- acquired pneumonia caused by S. aureus: 15-20 mg/L Therapeutic range for other indications: 10-15 mg/L Toxic: >20 mg/L Reference: Vancomycin Therapeutic Monitoring: Revie w and Recommendations from the ASHP, IDSA and SIDP Task Force. ??Am J Health- Syst Pharm. 2009; 66:82-98 Specimen Anatomical Collection Method Collection Time Receive d Time (Source) Location / / Volume Laterality Blood 11/22/2021 8:29 AM 2 9:09 EDT AM EDT Resulting Agency Comment Spec In Lab Valentina Montoya MD CHEMISTRY ORDERABLES Performing Organization Address City/[facility]/ZIP [facility] Phon e Number [address] Phosphorus (11/22/2021 8:29 AM EDT) P athologist Signature Phosphorus 3.6 2.5 - 4.5 [facility] mg/dL [facility] LABORATORY Specimen Anatomical Collection Method Collection Time Receive d Time (Source) Location / / Volume Laterality Blood 11/22/2021 8:29 AM 2 9:09 EDT AM EDT Resulting Agency Comment Spec In Lab Afshin Rogers MD CHEMISTRY ORDERABLES Performing Organization Address City/[facility]/ZIP Code Phon e Number [address] Phosphorus (11/21/2021 6:46 PM EDT) P athologist Signature Phosphorus 2.9 2.5 - 4.5 [facility] mg/dL [facility] LABORATORY Specimen Anatomical Collection Method Collection Time Receive d Time (Source) Location / / Volume Laterality Blood 11/21/2021 6:46 PM 2 6:53 EDT PM EDT Resulting Agency Comment Spec In Lab Afshin Rogers MD CHEMISTRY ORDERABLES Performing Organization Address City/[facility]/ZIP [facility] [place] [address] (ABNORMAL) Differential, Automated (11/21/2021 8:38 AM EDT) P athologist Signature Neutrophils % 70.4 % [facility] LABORATORY Neutr Abs (ANC) 5.79 1.70 - [facility] 6.10 [facility] x10(3)/[facility] LABORATORY Lymphocytes % 12.6 % [facility] LABORATORY Lymphocytes Abs 1.0 0.9 - 3.2 [facility] x10(3)/[facility] LABORATORY Monocytes % 11.2 % [facility] LABORATORY Monocyte Abs 0.9 0.3 - 0.9 [facility] x10(3)/[facility] LABORATORY Eosinophils % 4.6 % [facility] LABORATORY Eosinophils Abs 0.4 0.0 - 0.4 [facility] x10(3)/[facility] LABORATORY Basophils % 0.6 % [facility] LABORATORY Basophils Abs 0.0 0.0 - 0.1 [facility] x10(3)/[facility] LABORATORY Immature Gran % 0.60 % [facility] LABORATORY Comment: Immature granulocytes(IG's)percentage an d absolute count will include metamyelocytes, myelocytes, and promyelo cytes. Blood smears from CBCs yielding IG's will be scanned manually for concor dance. If this scan disagrees with the automated IG or if promyelocytes are not ed, a manual differential will be performed. Shannan Gran Abs 0.05 (H) 0.00 - 0.04 x10(3)/[facility] LABORATORY Specimen Anatomical Collection Method Collection Time Receive d Time (Source) Location / / Volume Laterality Blood 11/21/2021 8:38 AM 8:51 EDT AM EDT Resulting Agency Comment Spec In Lab Valentina Montoya MD HEMATOLOGY ORDERABLES Performing Organization Address City/State/ZIP [place] [address] (ABNORMAL) Hemogram (11/21/2021 8:38 AM EDT) Analysis Performed At Patho logist Time Signature WBC 8.2 4.0 - 9.5 [facility] x10(3)/[facility] LABORATORY RBC 4.13 (L) 4.58 - [facility] 5.54 [facility] x10(6)/[facility] LABORATORY Hemoglobin 13.2 (L) 13.7 - [facility] 16.5 g/dL [facility] LABORATORY Hematocrit 38.9 (L) 40.5 - [facility] 48.5 % [facility] LABORATORY MCV 94.2 (H) 82.9 - [place] EDGAR 93.1 [facility] LABORATORY MCH 32.0 27.5 - [place] EDGAR 32.1 [facility] LABORATORY MCHC 33.9 32.0 - [place] EDGAR 35.7 g/dL [facility] LABORATORY Platelets 285 145 - 357 [place] HERNÁNDEZ x10(3)/[facility] LABORATORY RDWSD 48.8 (H) 36.0 - [place] CHASEEDGAR 45.0 [facility] LABORATORY RDWCV 14.2 (H) 11.4 - [place] CHASEEDGAR 13.8 % [facility] LABORATORY MPV 8.9 7.6 - 12.9 [place] EDGAR [facility] LABORATORY nRBC % Auto 0.0 % [facility] LABORATORY nRBC Abs Auto 0.000 0.000 - [place] CHASEEDGAR 0.000 [facility] x10(3)/[facility] LABORATORY Specimen Anatomical Collection Method Collection Time Receive d Time (Source) Location / / Volume Laterality Blood 11/21/2021 8:38 AM 2 8:51 EDT AM EDT Resulting Agency Comment Spec In Lab Valentina Montoya MD HEMATOLOGY ORDERABLES Performing Organization Address City/State/[place] [address] Hepatic Function Panel (11/21/2021 8:38 AM EDT) P athologist Signature Total Protein 6.5 6.1 - 8.0 [place] EDGAR g/dL [facility] LABORATORY Albumin 3.2 3.2 - 5.2 [place] EDGAR g/dL [facility] LABORATORY AST 13 0 - 39 [place] EDGAR unit/L [facility] LABORATORY ALT 10 0 - 55 [place] EDGAR unit/L [facility] LABORATORY Alk Phos 76 40 - 130 [place] EDGAR unit/L [facility] LABORATORY Total 0.4 0.2 - 1.3 [place] ED[place]AR Bilirubin mg/dL [facility] LABORATORY Bili, Direct 0.1 0.0 - 0.3 [place] EDGAR mg/dL [facility] LABORATORY Specimen Anatomical Collection Method Collection Time Receive d Time (Source) Location / / Volume Laterality Blood 11/21/2021 8:38 AM 2 8:52 EDT AM EDT Resulting Agency Comment Spec In Lab Sommer Bains APRN CHEMISTRY ORDERABLES Performing Organization Address City/State/ZIP Code Phon e Number [address] Phosphorus (11/21/2021 8:38 AM EDT) athologist Signature Phosphorus 3.5 2.5 - 4.5 [facility] LABORATORY Specimen Anatomical Collection Method Collection Time Receive d Time (Source) Location / / Volume Laterality Blood 11/21/2021 8:38 AM 2 8:52 EDT AM EDT Resulting Agency Comment Spec In Lab Afshin Rogers MD CHEMISTRY ORDERABLES Performing Organization Address City/[facility] Code Phon e Number [address] (ABNORMAL) Basic Metabolic Panel (non-fasting) (11/21/2021 8:38 AM EDT) athologist Signature Glucose Lvl 89 65 - 199 [facility] mg/dL [facility] LABORATORY Comment: Diabetes: >=200 mg/dL plus symp toms BUN 6 (L) 10 - 20 mg/dL [facility] LABORATORY Creatinine 0.93 0.80 - 1.50 mg/dL [facility] LABORATORY Sodium 141 135 - 145 mmol/L [facility] LABORATORY Potassium 3.3 (L) 3.5 - 5.0 mmol/L [facility] LABORATORY Comment: Please note: ??Patients with WBC >100,00 0 may have falsely elevated Potassium levels. ??For accurate Potassium quantif ication in these patients send serum separator tube (gold top) for subsequent determinations. ??Contact the Clinical Chemistry Laboratory if there are any qu estions. Chloride 104 98 - 107 mmol/L [facility] LABORATORY CO2 25 22 - 31 mmol/L [facility] LABORATORY Anion Gap 12 5 - 15 mmol/L [facility] LABORATORY Calcium 8.8 8.5 - 10.5 mg/dL [facility] LABORATORY Estimated GFR 89 >=60 mL/min/1.73 m?? [facility] LABORATORY [...] Organization Address City/State/[place] [address] Phosphorus (11/20/2021 6:22 PM EDT) P athologist Signature Phosphorus 2.8 2.5 - 4.5 [facility] mg/dL [facility] LABORATORY Specimen Anatomical Collection Method Collection Time Receive d Time (Source) Location / / Volume Laterality Blood 11/20/2021 6:22 PM 2 6:31 EDT PM EDT Resulting Agency Comment Spec In Lab Afshin Rogers MD CHEMISTRY ORDERABLES Performing Organization Address City/State/[place] [address] EKG 12 Lead (11/20/2021 12:47 PM EDT) Component Value Ref Range Test Analysis Performed Pathologis t Method Time At Signature Ventricular rate 98 BPM MUSE SYSTEM Atrial Rate 98 BPM MUSE SYSTEM P-R Interval 160 ms MUSE SYSTEM QRS Duration 82 ms MUSE SYSTEM Q-T Interval 406 ms MUSE SYSTEM QTC Calculated 518 ms MUSE SYSTEM (Bezet) Calculated P [place] 60 degrees MUSE SYSTEM Calculated R [place] 7 degrees MUSE SYSTEM Calculated T [place] 24 degrees MUSE SYSTEM INTERPRETATION Normal sinus rhythm MUSE SYSTEM Anteroseptal infarct , age undetermined Prolonged QT Abnormal ECG When compared with ECG of 09-MAR-2020 18:45, Vent. rate has increased BY ??35 BPM Anteroseptal infarct is now Present Non-specific change in ST segment in Inferior leads QT has lengthened Confirmed by MD James Jon ([id number]) on 11/20/2021 2:01:24 PM Specimen Anatomical Collection Method Collection Time Receive d Time (Source) Location / / Volume Laterality 11/20/2021 12:47 11/20/2021 2:01 PM EDT PM EDT Sommer Bains APRN ECG ORDERABLES Performing Organization Address City/State/ZIP Code Phon e Number MUSE SYSTEM Vancomycin, trough (11/20/2021 8:48 AM EDT) P athologist Signature Vanc Trough 18.8 mg/L [facility] LABORATORY Comment: Therapeutic range for complicated infect ions such as bacteremia, endocarditis, osteomyelitis, meningitis, and hospital- acquired pneumonia caused by S. aureus: 15-20 mg/L Therapeutic range for other indications: 10-15 mg/L Toxic: >20 mg/L Reference: Vancomycin Therapeutic Monitoring: Revie w and Recommendations from the ASHP, IDSA and SIDP Task Force. ??Am J Health- Syst Pharm. 2009; 66:82-98 Specimen Anatomical Collection Method Collection Time Receive d Time (Source) Location / / Volume Laterality Blood 11/20/2021 8:48 AM 2 9:15 EDT AM EDT Resulting Agency Comment Spec In Lab Valentina Montoya MD CHEMISTRY ORDERABLES Performing Organization Address City/State/Z[place] [address] Phosphorus (11/20/2021 8:48 AM EDT) P athologist Signature Phosphorus 2.7 2.5 - 4.5 [facility] mg/dL [facility] LABORATORY Specimen Anatomical Collection Method Collection Time Receive d Time (Source) Location / / Volume Laterality Blood 11/20/2021 8:48 AM 2 9:15 EDT AM EDT Resulting Agency Comment Spec In Lab Afshin Rogers MD CHEMISTRY ORDERABLES Performing Organization Address City/State/ZIP Code Phon e Number [address] (ABNORMAL) Differential, Automated (11/20/2021 4:59 AM EDT) [facility] Method Time Signature Neutrophils % 78.8 % [facility] LABORATORY Neutr Abs (ANC) 8.46 (H) 1.70 - [facility] 6.10 [facility] x10(3)/[facility] LABORATORY Lymphocytes % 8.6 % [facility] LABORATORY Lymphocytes Abs 0.9 0.9 - 3.2 [facility] x10(3)/[facility] LABORATORY Monocytes % 7.6 % [facility] LABORATORY Monocyte Abs 0.8 0.3 - 0.9 [facility] x10(3)/[facility] LABORATORY Eosinophils % 3.9 % [facility] LABORATORY Eosinophils Abs 0.4 0.0 - 0.4 [facility] x10(3)/[facility] LABORATORY Basophils % 0.6 % [facility] LABORATORY Basophils Abs 0.1 0.0 - 0.1 [facility] x10(3)/[facility] LABORATORY Immature Gran % 0.50 % [facility] LABORATORY Comment: Immature granulocytes(IG's)percentage an d absolute count will include metamyelocytes, myelocytes, and promyelo cytes. Blood smears from CBCs yielding IG's will be scanned manually for concor dance. If this scan disagrees with the automated IG or if promyelocytes are not ed, a manual differential will be performed. Shannan Gran Abs 0.05 (H) 0.00 - 0.04 x10(3)/[facility] LABORATORY Specimen Anatomical Collection Method Collection Time Receive d Time (Source) Location / / Volume Laterality Blood 11/20/2021 4:59 AM 5:23 EDT AM EDT Resulting Agency Comment Spec In Lab Valentina Montoya MD HEMATOLOGY ORDERABLES Performing Organization Address City/[facility]/ZIP Code Phon e Number [place] [id number] HOSPITAL LABORATORY Drive (ABNORMAL) Hemogram (11/20/2021 4:59 AM EDT) Analysis Performed At Patho logist Time Signature WBC 10.7 (H) 4.0 - 9.5 [facility] LABORATORY RBC 4.10 (L) 4.58 - [place] CHASEEDGAR 5.54 [facility] x10(6)/[facility] LABORATORY Hemoglobin 13.5 (L) 13.7 - [facility] 16.5 g/dL [facility] LABORATORY Hematocrit 40.6 40.5 - [facility] 48.5 % [facility] LABORATORY MCV 99.0 (H) 82.9 - [facility] 93.1 [facility] LABORATORY MCH 32.9 (H) 27.5 - [facility] 32.1 pg [facility] LABORATORY MCHC 33.3 32.0 - [facility] 35.7 g/dL [facility] LABORATORY Platelets 216 145 - 357 [facility] x10(3)/[facility] LABORATORY RDWSD 50.1 (H) 36.0 - [facility] 45.0 [facility] LABORATORY RDWCV 13.8 11.4 - [facility] 13.8 % [facility] LABORATORY MPV 10.2 7.6 - 12.9 [facility] LABORATORY nRBC % Auto 0.0 % [facility] LABORATORY nRBC Abs Auto 0.000 0.000 - [facility] 0.000 [facility] x10(3)/[facility] LABORATORY Specimen Anatomical Collection Method Collection Time Receive d Time (Source) Location / / Volume Laterality Blood 11/20/2021 4:59 AM 5:23 EDT AM EDT Resulting Agency Comment Spec In Lab Valentina Montoya MD HEMATOLOGY ORDERABLES Performing Organization Address City/State/[place] [address] (ABNORMAL) Basic Metabolic Panel (non-fasting) (11/20/2021 4:59 AM EDT) P athologist Signature Glucose Lvl 69 65 - 199 [facility] mg/dL [facility] LABORATORY Comment: Diabetes: >=200 mg/dL plus symp toms BUN 8 (L) 10 - 20 mg/dL [facility] LABORATORY Creatinine 0.80 0.80 - 1.50 mg/dL [facility] LABORATORY Sodium 134 (L) 135 - 145 mmol/L [facility] LABORATORY Potassium Not Perf 3.5 - 5.0 [facility] LABORATORY Comment: Unable to quantitate due [...] Chloride 96 (L) 98 - 107 mmol/L [facility] LABORATORY CO2 27 22 - 31 mmol/L [facility] LABORATORY Anion Gap 11 5 - 15 mmol/L [facility] LABORATORY Calcium 9.1 8.5 - 10.5 mg/dL [facility] LABORATORY Estimated GFR 96 >=60 mL/min/1.73 m?? [facility] LABORATORY [...] Organization Address City/State/Z[place] [address] (ABNORMAL) Differential, Automated (11/19/2021 5:56 AM EDT) [facility] Method Time Signature Neutrophils % 78.0 % [facility] LABORATORY Neutr Abs (ANC) 10.20 (H) 1.70 - [facility] 6.10 [facility] x10(3)/[facility] LABORATORY Lymphocytes % 10.6 % [facility] LABORATORY Lymphocytes Abs 1.4 0.9 - 3.2 [facility] x10(3)/[facility] LABORATORY Monocytes % 8.0 % [facility] LABORATORY Monocyte Abs 1.0 (H) 0.3 - 0.9 [facility] x10(3)/[facility] LABORATORY Eosinophils % 2.4 % [facility] LABORATORY Eosinophils Abs 0.3 0.0 - 0.4 [facility] x10(3)/[facility] LABORATORY Basophils % 0.5 % [facility] LABORATORY Basophils Abs 0.1 0.0 - 0.1 [facility] x10(3)/[facility] LABORATORY Immature Gran % 0.50 % [facility] LABORATORY Comment: Immature granulocytes(IG's)percentage an d absolute count will include metamyelocytes, myelocytes, and promyelo cytes. Blood smears from CBCs yielding IG's will be scanned manually for concor dance. If this scan disagrees with the automated IG or if promyelocytes are not ed, a manual differential will be performed. Shannan Gran Abs 0.06 (H) 0.00 - 0.04 x10(3)/[facility] LABORATORY Specimen Anatomical Collection Method Collection Time Receive d Time (Source) Location / / Volume Laterality Blood 11/19/2021 5:56 AM 6:16 EDT AM EDT Resulting Agency Comment Spec In Lab Valentina Montoya MD HEMATOLOGY ORDERABLES Performing Organization Address City/[facility]/ZIP [place] [address] (ABNORMAL) Hemogram (11/19/2021 5:56 AM EDT) Analysis Performed At Patho logist Time Signature WBC 13.1 (H) 4.0 - 9.5 [place] x10(3)/[facility] LABORATORY RBC 3.98 (L) 4.58 - [place] LATHAMCOCK 5.54 [facility] x10(6)/[facility] LABORATORY Hemoglobin 12.7 (L) 13.7 - [facility] 16.5 g/dL [facility] LABORATORY Hematocrit 39.4 (L) 40.5 - [place] EDGAR 48.5 % [facility] LABORATORY MCV 99.0 (H) 82.9 - [facility] [facility] LABORATORY MCH 31.9 27.5 - LOUISA EDGAR 32.1 pg [facility] LABORATORY MCHC 32.2 32.0 - LOUISA EDGAR 35.7 g/dL [facility] LABORATORY Platelets 217 145 - 357 [facility] x10(3)/[facility] LABORATORY RDWSD 51.4 (H) 36.0 - [facility] EDGAR 45.0 [facility] LABORATORY RDWCV 14.0 (H) 11.4 - LOUISA EDGAR 13.8 % [facility] LABORATORY MPV 9.4 7.6 - 12.9 [facility] LABORATORY nRBC % Auto 0.0 % [facility] LABORATORY nRBC Abs Auto 0.000 0.000 - [facility] 0.000 [facility] x10(3)/[facility] LABORATORY Specimen Anatomical Collection Method Collection Time Receive d Time (Source) Location / / Volume Laterality Blood 11/19/2021 5:56 AM 6:16 EDT AM EDT Resulting Agency Comment Spec In Lab Valentina Montoya MD HEMATOLOGY ORDERABLES Performing Organization Address City/State/[place] [address] (ABNORMAL) Sedimentation rate (11/19/2021 5:56 AM EDT) P athologist Signature Sed Rate 104 (H) 2 - 37 [facility] mm/hr [facility] LABORATORY Comment: Effective April 21, 2019 [...] Organization Address City/State/[place] [address] (ABNORMAL) Basic Metabolic Panel (non-fasting) (11/19/2021 5:56 AM EDT) athologist Signature Glucose Lvl 87 65 - 199 [facility] mg/dL [facility] LABORATORY Comment: Diabetes: >=200 mg/dL plus symp toms BUN 12 10 - 20 mg/dL [facility] LABORATORY Creatinine 0.98 0.80 - 1.50 mg/dL [facility] LABORATORY Sodium 139 135 - 145 mmol/L [facility] LABORATORY Potassium 3.5 3.5 - 5.0 mmol/L [facility] LABORATORY Comment: Please note: ??Patients with WBC >100,00 0 may have falsely elevated Potassium levels. ??For accurate Potassium quantif ication in these patients send serum separator tube (gold top) for subsequent determinations. ??Contact the Clinical Chemistry Laboratory if there are any qu estions. Chloride 98 98 - 107 mmol/L [facility] LABORATORY CO2 34 (H) 22 - 31 mmol/L [facility] LABORATORY Anion Gap 7 5 - 15 mmol/L [facility] LABORATORY Calcium 9.0 8.5 - 10.5 mg/dL [facility] LABORATORY Estimated GFR 84 >=60 mL/min/1.73 m?? [facility] LABORATORY [...] Organization Address City/State/[place] [address] [facility] LAB[address]ORY [address] Surgical Pathology Report (11/18/2021 8:56 PM EDT) Component Value Ref Test Analysis Performed At [facility] gist Range Method Time Signature Surgical [id number] ? Location: 1WST; 0110; B [facility] Report The signing pathologist has (i) examined the relevant preparation(s) for the [facility] specimen(s) and (ii) rendered or confirmed the [...] MD Verified: ??11/28/2021 12:13 ??Pathologist Performed at: ??-[facility] Dept. of Pathology, [place], [place] SPECIMEN(S) SUBMITTED A - ??Right great [...] for decalcification: A1-A5. Touch prep(s) are prepared. Shade Cutter sections in 6 cassettes as follows: ?A1-A4: [...] MD PATHOLOGY/CYTOLOGY ORDERABLE S Performing Organization Address City/[facility]/ZIP Code Phon e Number [address] Specimen to Pathology (11/18/2021 8:56 PM EDT) Specimen Anatomical Collection Method Collection Time Receive d Time (Source) Location / / Volume Laterality AP Specimen 11/18/2021 8:56 PM 8:56 EDT PM EDT Narrative [facility] LABORAT ORY - 11/18/2021 8:56 PM EDT Specimen requisition ordered. ??Separate Pathology report to follow Valentina Montoya MD PATHOLOGY/CYTOLOGY ORDERABLE S Performing Organization Address City/[facility]/[place] [address] (ABNORMAL) Anaerobic Culture (11/18/2021 8:52 PM EDT) [facility] gist Method Time Signature Anaerobic Rare [facility] Culture Bacteroides EDGAR species (A) [facility] LABORATORY Organism Bacteroides LOUISA species (A) [facility] LABORATORY Specimen Anatomical Collection Method Collection Time Receive d Time (Source) Location / / Volume Laterality Stump STRUCTURE OF RIGHT 11/18/2021 8:52 PM 02/2022 FOOT / Unknown EDT 10:42 PM EDT Comment: Cut end of RIGHT metatarsal bon e. Resulting Agency Comment Spec In Lab Sammy Baker MD MICROBIOLOGY - GENERAL ORDER SILAS Performing Organization Address City/[facility]/[place] [address] Abscess/Wound Aspirate Culture (11/18/2021 8:52 PM EDT) Component Value Ref Test Analysis Performed At Patholo gist Range Method Time Signature Abscess/Wound No growth LOUISA Aspirate [facility] LABORATORY Gram Stain Few Neutrophils seen LOUISA No microorganisms seen. [facility] Results called to and read back by Sd Cedillo ??11/18/21 23:17:2 4 [facility] LABORATORY Specimen Anatomical Collection Method Collection Time Receive d Time (Source) Location / / Volume Laterality Stump STRUCTURE OF RIGHT 11/18/2021 8:52 PM 02/2022 FOOT / Unknown EDT 10:42 PM EDT Comment: Cut end of RIGHT metatarsal bon e. Resulting Agency Comment Spec In Lab Sammy Baker MD MICROBIOLOGY - GENERAL ORDER SILAS Performing Organization Address City/[facility]/[place] [address] (ABNORMAL) Anaerobic Culture (11/18/2021 8:52 PM EDT) Patholo gist Method Time Signature Anaerobic Many LOUISA Culture Bacteroides EDGAR species (A) [facility] LABORATORY Organism Bacteroides LOUISA species (A) [facility] LABORATORY Specimen Anatomical Collection Method Collection Time Receive d Time (Source) Location / / Volume Laterality Abscess TOE STRUCTURE / 11/18/2021 8:52 PM 2021 Unknown EDT 10:41 PM EDT Comment: #2 RIGHT great toe. Resulting Agency Comment Spec In Lab Sammy Baker MD MICROBIOLOGY - GENERAL ORDER SILAS Performing Organization Address City/[facility]/[place] [address] (ABNORMAL) Abscess/Wound Aspirate Culture (11/18/2021 8:52 PM EDT) Component Value Ref Test Analysis Performed At Patholo gist Range Method Time Signature Abscess/Wound Many Proteus mirabilis MAR Y Aspirate Many Streptococcus milleri, anginosis group WAVERLY Culture (A) [facility] LABORATORY Gram Stain Many Neutrophils seen LOUISA Many Gram Positive Cocci seen EDGAR Many Gram Negative Rods seen [facility] Results called to and read back by Sd Cedillo ??11/18/21 23:16:5 0 [facility] () LABORATORY Organism Proteus mirabilis LOUISA (A) [facility] LABORATORY Organism Streptococcus LOUISA milleri, WAVERLY anginosis group [facility] LAB[facility] Organism Gram Positive LOUISA Cocci (A) [facility] LABORATORY Organism Gram Negative LOUISA Rods (A) [facility] LABORATORY Specimen Anatomical Collection Method Collection Time [...] - GENERAL ORDER SILAS Performing Organization Address City/[facility]/ZIP Code Phon e Number [address] (ABNORMAL) Anaerobic Culture (11/18/2021 8:52 PM EDT) [facility] Method Time Signature Anaerobic Many LOUISA Culture Bacteroides WAVERLY species (A) [facility] LABORATORY Organism Bacteroides LOUISA species (A) [facility] LABORATORY Specimen Anatomical Collection Method Collection Time Receive d Time (Source) Location / / Volume Laterality Abscess TOE STRUCTURE / 11/18/2021 8:52 PM 2021 Unknown EDT 10:43 PM EDT Comment: #1 RIGHT great toe. Resulting Agency Comment Spec In Lab Sammy Baker MD MICROBIOLOGY - GENERAL ORDER SILAS Performing Organization Address City/[facility]/ZIP Code Phon e Number [address] (ABNORMAL) Abscess/Wound Aspirate Culture (11/18/2021 8:52 PM EDT) Component Value Ref Test Analysis Performed At Patholo gist Range Method Time Signature Abscess/Wound Many Proteus mirabilis MAR Y Aspirate Rare Staphylococcus aureus [facility] Culture Many Streptococcus [facility], [facility] Gram Stain Many Neutrophils seen LOUISA Many Gram Positive Cocci seen EDGAR Many Gram Negative Rods seen [facility] Results called to and read back by Sd Cedillo ??11/18/21 23:16:[address] [place] [address] LABORATORY Organism Staphylococcus LOUISA aureus (A) [facility] LABORATORY Organism Proteus mirabilis [facility] (A) [facility] LABORATORY Organism Streptococcus LOUISA milleri, WAVERLY anginosis [facility] LABORATORY Organism Gram Positive LOUISA Cocci (A) [facility] LABORATORY Organism Gram Negative LOUISA Rods (A) [facility] LABORATORY Specimen Anatomical Collection Method Collection Time [...] Comment: Gentamicin is not a ppropriate for [place]-therapy. Staphylococcus aureus Oxacillin VITEK 2 METHOD Sensitive [...] Organization Address City/State/ZIP Code Phon e Number [place] [phone] HOSPITAL LABORATORY Drive CT Lower Extremity w [...] who have questions please contact the health care companion that requested your imaging first. ? Narrative 11/19/2021 2:58 AM EDT EXAMINATION: CT [...] ho have questions please contact the health care companion that requested your imaging first. Lorrie Lundberg MD IMG CT ORDERABLES Hepatic Function Panel (11/18/2021 5:25 PM EDT) Analysis Performed At Patho logist Time Signature Total Protein 6.6 6.1 - 8.0 [facility] g/dL [facility] LABORATORY Albumin 3.3 3.2 - 5.2 [facility] g/dL [facility] LABORATORY AST Not Perf 0 - 39 [facility] LABORATORY Comment: Unable to quantitate due to sample hemol ysis. ??Sample redraw suggested. Called by: dahlia, Read back by: rukhsana ornelas, Date/Time:11/18/21 20:09. ALT 8 0 - 55 unit/L [facility] LABORATORY Alk Phos 91 40 - 130 unit/L [facility] LABORATORY Total Bilirubin 0.4 0.2 - 1.3 mg/dL [facility] LABORATORY Bili, Direct Not Perf 0.0 - 0.3 [facility] LABORATORY Comment: Unable to quantitate due to [...] Organization Address City/State/[place] [address] (ABNORMAL) Basic Metabolic Panel (non-fasting) (11/18/2021 5:25 PM EDT) P athologist Signature Glucose Lvl 113 65 - 199 [facility] mg/dL [facility] LABORATORY Comment: Diabetes: >=200 mg/dL plus symp toms BUN 13 10 - 20 mg/dL [facility] LABORATORY Creatinine 0.93 0.80 - 1.50 mg/dL [facility] LABORATORY Sodium 136 135 - 145 mmol/L [facility] LABORATORY Potassium 4.2 3.5 - 5.0 mmol/L [facility] LABORATORY Comment: Please note: ??Patients with WBC >100,00 0 may have falsely elevated Potassium levels. ??For accurate Potassium quantif ication in these patients send serum separator tube (gold top) for subsequent determinations. ??Contact the Clinical Chemistry Laboratory if there are any qu estions. Chloride 96 (L) 98 - 107 mmol/L [facility] LABORATORY CO2 32 (H) 22 - 31 mmol/L [facility] LABORATORY Anion Gap 8 5 - 15 mmol/L [facility] LABORATORY Calcium 9.0 8.5 - 10.5 mg/dL [facility] LABORATORY Estimated GFR 89 >=60 mL/min/1.73 m?? [facility] LABORATORY [...] Organization Address City/State/[place] [address] (ABNORMAL) CRP, acute inflammation [...] Organization Address City/State/ZIP Code Phon e Number [place] [phone] HOSPITAL LAB[address] documented in this encounter Visit Diagnoses Not on filedocumented in this encounter Admitting Diagnoses Diagnosis Necrotizing fasciitis documented in this encounter Administered Medications Inactive Administered Medications - up to 3 most recent administrations Medication Order MAR Action Action Date Dose Rate Site acetaminophen (Tylenol) tablet Given 11/29/2021 11:33 AM EDT 650 mg 650 mg 650 mg, Oral, EVERY 6 [...] on Fri11/18/21 at 2148, Until Fri11/29/21 at 2006, Wheezing, Shortness of Breath, not [...] at 0015, Until Discontinued, Application Site: back cyclobenzaprine (Flexeril) tablet 5 mg Given 11/27/2021 [...] appropriate choice: ID Approval by Donal Serrano 11/28/2021 4:09 PM EDT 700 mg 128 [...] (INVanz) 1 g vial attach to New Bag 11/29/2021 9:28 AM EDT 1 g 200 [...] Given 11/28/2021 10:07 PM EDT 600 mg hydrALAZINE (Apresoline) (20 mg/mL) inje ction 5 mg 5 mg, Intravenous, EVERY 6 HOURS PRN, St arting on Fri11/28/21 at 0837, Until Fri11/29/21 at 2005, High Blood Pressure, SBP > 180 HYDROmorphone (Dilaudid) tablet 1 mg 1 mg, [...] Routine hydrOXYzine (Atarax) tablet 25 mg Given 11/28/2021 4:07 PM EDT 25 mg 25 mg, Oral, DAILY PRN, Starting on Fri11/27/21 at 1130, Until Fri11/29/21 at 2005, Anxiety, Routine ipratropium-albuteroL (Duoneb) 0.5 mg-3 mg(2.5 Given 0 11/28/2021 5:54 PM EDT 3 mLs mg base)/3 mL nebulizer solution 3 mL 3 mL, Nebulization, EVERY 6 HOURS WHILE AWAKE, First dose on Fri11/19/21 at 0600, Until Discontinued, Routine Given 11/28/2021 12:06 PM EDT 3 mLs Given 11/27/2021 5:36 PM EDT 3 mLs lactobacillus with pectin capsule 1 Given 11/29/2021 9:28 AM EDT 1 capsule capsule 1 capsule, Oral, DAILY, First dose on Fri11/28/21 at 1815, Until Discontinued, Routine Given 11/28/2021 5:53 PM EDT 1 capsule lisinopriL (Zestril) tablet 40 mg Given 11/29/2021 9:28 AM EDT 40 mg 40 mg, Oral, DAILY, First dose on Fri11/20/21 at 1530, Until Discontinued, Hold for SBP <90, Routine Given 11/28/2021 8:16 AM EDT 40 mg Given 11/27/2021 8:32 AM EDT 40 mg melatonin tablet 3 mg Given 11/24/2021 8:31 PM EDT 3 mg 3 mg, Oral, NIGHTLY PRN, Starting on Fri11/18/21 at 2259, Until Fri11/29/21 at 2006, Sleep, Routine Given 11/21/2021 8:55 PM EDT 3 mg methadone (Dolophine) (10 mg/mL) oral liquid Given 11:00 AM EDT 45 mg 45 mg 45 mg, Oral, DAILY, First dose on Christina 11/29/21 at 1030, Until Discontinued, Liquid methadone should be used to avoid diversion, and a mouth check should be performed after each dose., Routine metoprolol succinate XL (Toprol-XL) tablet Given 11/29/2021 9:28 AM EDT 150 mg 150 mg 150 mg, Oral, DAILY, First dose on Fri11/24/21 at 0945, Until Discontinued, DO NOT CRUSH OR OPEN, Routine Given 11/28/2021 8:18 AM EDT 150 mg Given 11/27/2021 8:31 AM EDT 150 mg midazolam (pf) (Versed) (1 mg/mL) injection [...] patch pantoprazole EC (Protonix) tablet 40 mg Given 11/29/2021 9:29 AM EDT 40 mg 40 mg, Oral, 2 TIMES DAILY, First dose on Fri11/19/21 at 0000, Until Discontinued, DO NOT CRUSH OR OPEN, Routine Given 11/28/2021 10:07 PM EDT 40 mg Given 11/28/2021 8:18 AM EDT 40 mg polyethylene glycoL (Miralax) packet 17 g 17 g, Oral, DAILY PRN, Starting on Fri at 1113, Until Fri11/29/21 at 2006, Constipation, Routine sodium chloride 0.9 % (flush) [...] Given 11/27/2021 8:31 AM EDT 100 mg documented in this encounter Active and Recently Administered Medications Times are shown in EDT. Scheduled Medication Order 11/27/2021 11/28/2021 11/29/2021 acetaminophen (Tylenol) tablet 650 mg 1124 (Given - Pr ovider: Amy Yates LPN)9664 (Given - Provider: Carissa Cordova, VINCENT) 0031 (Given - Provider: Claudia Long, RN)0616 (Given - Provider: Claudia Long, RN)1206 (Given - Provider: Malinda Díaz, VINCENT)1753 (Given - Provider: Malinda Díaz, VINCENT) 0013 (Given - Provider: Louisa Cardenas RN)0628 (Given - Provider: Louisa Cardenas RN)1133 (Given - Provider: Bernice Coronel, VINCENT) 650 mg, Oral, EVERY 6 HOURS SCHEDULED, F irst dose (after last modification) on Fri11/27/21 at 1200, Until Discontinued, Administer for temperature greater than or equal to 38.2 degrees celsius. Maximum daily dose of acetaminophen from all wilda rces not to exceed 4,000 mg. When ordered for pain, acetaminophen should be given even when other ordered pain medications are indicated., Routine busPIRone (Buspar) tablet 15 mg 0832 (Given - Provider : Amy Yates LPN)2058 (Given - Provider: Bridgette Cho RN) 0818 (Given - Provider: Malinda Díaz RN)2207 (Given - Provider: Louisa Cardenas RN) 0929 (Given - Provider: Bernice Coronel RN) 15 mg, Oral, 2 TIMES DAILY, First dose o n 11/19/21 at 0015, Until Discontinued, Routine camphor-methyl salicyl-menthoL (Bengay Ultra Strength) 4-30-10 % cream 0900 (Not Given - Provider: Amy Yates LPN - Reason: Patient/family refused)2100 (Not Given - Provider: Bridgtete Cho RN - Reason: Patient/family refused) 0819 (Not Given - Provider: Malinda ramos RN - Reason: Patient/family refused)2100 (Not Given - Provider: Louisa Cardenas RN - Reason: Patient/family refused) 0900 [...] Malinda giang RN)1639 (Stopped - Provider: Malinda Díaz, VINCENT) 1428 (New Bag - Provider: Bernice Coronel, VINCENT)1458 (Stopped - Provider: Bernice Coronel, VINCENT) 700 mg, Intravenous, EVERY 24 HOURS, Fir st dose on Fri11/27/21 at 1430, Until Discontinued, Administer over 30 Minutes, Indication for (Active or Suspected): Bone/Joint, Restricted Antibiotic: Please in dicate the most appropriate choice: ID Approval by Donal Serrano enoxaparin (Lovenox) (40 mg/0.4 mL) subcutaneous injec tion 40 mg 2058 (Given - Provider: Bridgette Cho, VINECNT) 2205 (Given - Provider: Louisa Cardenas RN) 40 mg, Subcutaneous, NIGHTLY, First dose on Fri11/19/21 at 2100, Until Discontinued, Routine ertapenem (INVanz) 1 g vial attach to sodium chloride 0.9% 100 mL Mini-Bag Plus 1440 (New Bag - Provider: Carissa Cordova RN)1510 (Stopped - Provider: Carissa Cordova RN) 0834 (New Bag - Provider: Malinda giang RN)0904 (Stopped - Provider: Malinda Díaz, VINCENT) 0928 (New Bag - Provider: Bernice Coronel, VINCENT)1002 (Stopped - Provider: Bernice Coronel, VINCENT) 1 g, Intravenous, DAILY, First dose on [...] Carissa Cordova RN)2059 (Given - Provider: Bridgette Cho RN) 0816 (Given - Provider: Malinda Díaz RN)1549 (Given - Provider: Malinda Díaz RN)2207 (Given - Provider: Louisa Cardenas RN) 0929 (Given - Provider: Bernice Coronel, VINCENT)1428 (Given - Provider: Bernice Coronel RN) 600 mg, Oral, 3 TIMES DAILY, First dose on Fri11/19/21 at 0900, Until Discontinued, Routine hydrALAZINE (Apresoline) (20 mg/mL) injection 5 mg (CO MPLETED) 0434 (Given - Provider: Bridgette Cho RN) 5 mg, Intravenous, ONCE, 1 dose, On Fri11/27/21 at 0445 ipratropium-albuteroL (Duoneb) 0.5 mg-3 mg(2.5 mg base)/3 mL nebulizer solution 3 mL 0600 (Not Given - Provider: Bridgette andrews RN - Reason: Order parameters not met - Comment: Pt sleeping)1124 (Given - Provider: Amy Yates LPN)1736 (Given - Provider: Carissa Cordova RN) 0600 (Not Given - Provider: Malinda Díaz RN - Reason: Patient/family refused)1206 (Given - Provider: Malinda Díaz RN)1754 (Given - Provider: Malinda Díaz RN) 0600 (Not Given - Provider: Louisa Cardenas RN - Reason: Patient/family refused)1200 (Not [...] Yates LPN) 0816 (Given - Provider: Malinda Díaz, VINCENT) 0928 (Gi mita - Provider: Bernice Coronel RN) 40 mg, Oral, DAILY, First dose on 05/02 at 1530, Until Discontinued, Hold for SBP <90, Routine loperamide (Imodium A-D) capsule 2 mg (COMPLETED) 175 (Given - Provider: Malinda Díaz RN) 2 mg, Oral, ONCE, 1 dose, On Fri11/28/21 at 1815, Do not exceed 16 mg/day., Routine LORazepam (Ativan) tablet 0.5 mg (COMPLETED) 1336 (Given - Provider: Bernice Coronel RN) 0.5 mg, Oral, ONCE, 1 dose, On Fri11/29/21 at 1415, Routine methadone (Dolophine) (10 mg/mL) oral liquid 45 mg 1100 (Given - Provider: Bernice Coronel RN) 45 mg, Oral, DAILY, First dose on Fri at 1030, Until Discontinued, Liquid methadone should be used to avoid diversion, and a mouth check should be performed after each dose., Routine methadone (Methadose) (2 mg/mL) oral liquid 15 mg (CAN CELED) 1518 (Given - Provider: Jennifer De RN)2147 (Given - Provider: Bridgette Cho RN) 0820 (Given - Provider: Malinda Díaz, VINCENT) [...] 0928 (Gi mita - Provider: Bernice Coronel, RN) 150 mg, Oral, DAILY, First dose on Fri at 0945, Until Discontinued, DO NOT CRUSH OR OPEN, Routine metroNIDAZOLE (Flagyl) tablet 500 mg (CANCELED) 08 ( Given - Provider: Amy Yates LPN) 500 mg, Oral, 3 TIMES DAILY, First dose on Fri11/23/21 at 1645, Until Discontinued, Routine mirtazapine (Remeron) tablet 30 mg 2058 (Given - Provi angie: Bridgette Cho, VINCENT) 2206 (Given - Provider: Louisa Cardenas RN) 30 mg, Oral, NIGHTLY, First dose on Fri11/19/21 at 0015, Until Discontinued, Routine nicotine (Nicoderm CQ) 21 mg/24 hr patch 21 mg(Linked Group 1) 0832 (Patch Applied - Provider: Amy Yates LPN) 0838 (Patch Applied - Provider: Malinda Díaz RN) 0945 (Patch Applied - Provider: Bernice Coronel, VINCENT) 21 mg (1 patch), Transdermal, DAILY, Fir [...] RN) 09 (Patch Removed - Provider: Bernice Coronel, RN) Transdermal, DAILY, First dose on 04/02 at 0900, Until Discontinued, Remove nicotine 21 mg/24 hr patch nicotine (NICODERM CQ) 21 mg/24 hr patch Patch Verific ation(Linked Group 1) 899 (Patch (dose and location) verified - Provider: Amy Yates LPN)2099 (Patch (dose and location) verified - Provider: Bridgette Cho RN) 821 (Patch (dose and location) verified - Provider: Malinda Díaz RN)2099 (Patch (dose and location) verified - Provider: Louisa Cardenas RN) 899 (Patch (dose and location) verified - Provider: Bernice Coronel RN) Transdermal, 2 TIMES DAILY, First dose o n Fri11/19/21 at 0800, Until Discontinued, Verify nicotine 21 mg/24 hr patch pantoprazole EC (Protonix) tablet 40 mg 0832 (Given - Provider: Amy Yates LPN)2058 (Given - Provider: Bridgette Cho RN) 08 (Given - Provider: Malinda Díaz RN)2206 (Given - Provider: Louisa Cardenas, VINCENT) 09 (Given - Provider: Bernice Coronel, VINCENT) 40 mg, Oral, 2 TIMES DAILY, First dose o n Fri11/19/21 at 0000, Until Discontinued, DO NOT CRUSH OR OPEN, Routine potassium chloride 10 mEq in sterile water 100 mL infusion ( COMPLETED) 0440 (New Bag - Provider: Claudia Long RN)0617 (Stopped - Provider: Claudia Long RN)0618 (New Bag - Provider: Claudia Long, VINCENT)0746 (Stopped - Provider: Mlainda Díaz, VINCENT)0823 (New Bag - Provider: Malinda Díaz, VINCENT) 10 mEq, Intravenous, EVERY 2 HOURS, 3 do ses, First dose on Fri11/28/21 at 0500, Last dose on Fri11/28/21 at 0900, Administer over 60 Minutes, Warning Vesicant/Irritant Medication 0923 (Stopped - Provid er: Malinda Díaz RN) potassium chloride ER (K-Dur/Klor-Con) tablet 40 mEq (COMPLE LUL) 0439 (Given - Provider: Claudia Long, RN) 40 mEq, Oral, ONCE, 1 dose, On [...] Provider: Malinda Díaz RN)2208 (Given - Provider: Louisa Cardenas RN) 0930 (Given - Provider: Donna Ramsey) 5 mL, Intravenous, 2 TIMES DAILY, First dose on Fri11/19/21 at 0000, Until Discontinued, Routine thiamine (Vitamin B1) tablet 100 mg 0831 (Given - Prov ider: Amy Yates LPN) 0817 (Given - Provider: Malinda Díaz RN) 0929 (Gi mita - Provider: Bernice Coronel, VINCENT) 100 mg, Oral, DAILY, First dose on [...] mg 192 (Given - P rovider: Bridgette Cho, VINCENT) 5 mg, Oral, 3 TIMES DAILY PRN, [...] mg (CANCELED) 0249 (Given - Provider: Bridgette Cho, VINCENT) 1 mg, Subcutaneous, EVERY 3 HOURS PRN, [...] Alternative - Provider: Carissa Cordova RN) 0045 (Given - Provider: Angelica perez RN) [...] Fri11/29/21 at 2005, Pain, for moderate pain (4-6)
May give an additional 2 mg once if pain not relieved in 30-60 minutes.
Routine Or HYDROmorphone (Dilaudid) tablet 4 mgJump to med 4 mg, Oral, EVERY 4 HOURS PRN, Starting on Fri11/27/21 at 1420, Until Fri11/29/21 at 2006, Pain, for severe pain (7-10)
May give an additional 2 mg once if pain not relieved in 30-60 minutes.
Routine documented in this encounter Additional Health Concerns Infection Onset Date Last Indicated Resolved Time Rule Out C. difficile 11/26/2021 11/26/2021 11/27/2021 2:30 PM EDT documented as of this encounter Care Teams Applications Specialist Relationship Specialty Start Date End Date Brian Fall APRN PCP - General Internal Medicine 04/07/[address] [place] [phone] documented as of this encounter
--- OUTSIDE RECORDS SUMMARY | 2021-11-30 08:16 | XMS_ITS | Encounter Summary ---
:1955 [place] [address] Care Team Providers Name Role Phone Brian Fall APRN Primary Care Provider Reason for Visit Auth/Cert Specialty Diagnoses / Procedures Referred By Contact Refer red To Contact Diagnoses Necrotizing fasciitis Cellulitis of leg, right Necrotic toes Infected [place] [address] Referral ID Status Reason Start Date Expiration Date Visits Requ ested Visits Authorized [id number] 1 1 Encounter Details Date Type Department Care Team Description 11/23/2021 Anesthesia Event Main Operating Room Jeremías Hammond MD [facility] [address] [facility] Dionte Hernandez MD [facility] [place] [address] [place] [phone] Anesthesia Record Procedure Summary Procedure Name Responsible Anesthesia Start Anesthesia Stop Anesthesiologist Time Time Madalyn MARINELLI Tung T, MD 11/23/21 1225 11/23/21 1344 TRANSMETATARSAL TOE, ONE TOE (WRVU 6.64) (Right ) Events Date Time Event Comment 11/23/2021 1043 1225 Start 1228 AN Verify 1228 An Start Data 1231 An Induction 1237 An Intubation 1238 Anesthesia Ready 1259 Break/Relief In I assumed care f or Break Relief before which we: 1. Identifie d the patient 2. Identified the responsible provider(s) 3. Reviewed the pertinent medica l history 4. Discussed the surgical plan an d course 5. Reviewed intra-op anesthesia manag ement and issues during anesthesia 6. Se t expectations for the relief (and/or post-pro cedure) period 7. Allowed opportunity for questions and acknowledgement of understanding ZULEIKA Cassidy 1316 Break/Relief Out 1330 Extubation/LMA Out 1332 an stop data 1344 Recovery or ICU Handoff Patient care was transferred to the destination unit staff after review of the patient's medica l history, current anesthetic/surgi karla status and plan, according to the Provider Handoff Checklist. 1344 Stop Name Total Propofol 200 mg Ondansetron 4 mg ePHEDrine 15 mg PHENYLephrine 800 mcg HYDROmorphone 2 mg/mL 1 mg piperacillin-tazobactam (Zosyn) 3.375 g vial attach to sodium chloride 0.9% 3.375 g 50 mL Mini-Bag Plus ROpivacaine 0.5% 30 mL Lactated Ringers 700 mL Agents Name O2 Air N2O Sevoflurane (et) Blood No blood administrations on file. Lines, Drains, and Airways Type Details Placement Removal Incision 11/18/21; 2046; Right; 11/18/212046 by first toe; other (see Mila Amador, VINCENT comments); amputation site. Incision 11/23/21; Right; first 11/23/21 0000 by toe Yoana Gutierrez RN Incision 12/13/15; knee; 12/13/15 0000 by 11/23/21 1323 b y 11/23/21; 1323 Angelica Louise RN Brown, Pam ela K, RN Wound 03/09/20; 0934; foot; 03/09/20 0934 by 11/23/21 1324 by puncture; erythema and Mali Swanson RN Brown, Pamela K, RN edema, pt seen by wound care for this particular wound; 11/23/21; 1324 Wound 03/09/20; 0935; foot; 03/09/20 0935 by 11/23/21 1323 by puncture; no edema, KikiMali R, RN Lisa Obrien, RN redness. ; 11/23/21; 1323 Incision 03/10/20; foot; 03/10/20 0000 by 11/23/21 1323 b y 11/23/21; 1323 Jacquelin Godinez, Loly Barbre, RN NPWT 11/18/21; 2110; Right; 11/18/21 2110 by 11/25/21 0000 by foot; 11/25/21 Mila Amador, VINCENT Kraus, Basil mena, RN PIV 11/23/21; 1235; dorsal 11/23/21 1235 by 11/25/21 0010 by arch vein (top of Leny Avila, Anusha hand), left; 18 gauge; N, ZULEIKA R, VINCENT avila cheese cooker; 11/25/21; 0010 Supraglottic Mask Ventilation: Not 11/23/21 1237 by 11/23/21 1330 by Attempted (0); LMA Leny Avila Jacquelyn Type: Unique; LMA Size: N, PERFORMANCE TEST ARCHITECT N, PERFORMANCE TEST ARCHITECT 5; Inserted by: Jeremías Bergman MD PIV 11/23/21; 1250; dorsal 11/23/21 1250 by 11/27/21 0000 by Camp, arch vein (top of Leny Avila RN hand), right; 18 gauge; N, PERFORMANCE TEST ARCHITECT Jeremías Bergman MD; 11/27/21 Urethral Catheter 11/23/21; 1357; Acute 11/23/21 1357 by 2 1744 by urinary retention or Loly Obrien RN Bergero n, Corrina L, obstruction; indwelling RN double lumen catheter; 100% silicone; 14; inserted at this facility; 1; 10; 10; none; drainage bag to dependent drainage; tubing intact, per protocol/policy; 11/26/21; 1744 documented in this encounter Social History Tobacco [...] encounter OR Notes Anesthesia Postprocedure Evaluation - Jeremías Bergman MD - 11/23/2021 2:01 PM EDT Department of Anesthesiology Post-procedure Note Patient: Mahin Ramos Procedure Summary Date: 11/23/21 Room / Location: [facility] OR [facility] MAIN OR Anesthesia Start: 1225 Anesthesia Stop: 1344 Procedures: AMPUTATION, TRANSMETATARSAL TOE, ONE TOE (WRVU 6.64) (Right ) MODIFIER WOUND VAC (N/A ) Diagnosis: (Right great toe amputation) Surgeons: Jarad Flores MD Responsible Provider: Jeremías Bergman MD Anesthesia Type: general ASA Status: 3 All Anesthesia Providers: Anesthesiologist: Jeremías Bergman MD PERFORMANCE TEST ARCHITECT: Leny Avila CRNA Vitals Value Taken Time BP 166/96 11/23/21 1415 Temp 36.2 ??C (97.2 ??F) 11/23/21 1400 Pulse 93 11/23/21 1424 Resp 20 11/23/21 1424 SpO2 94 % 11/23/21 1424 Pain Level 0 11/23/21 1400 Vitals shown include unvalidated device data. Patient Location: PACU/[facility] Level of Consciousness: Conscious but Sleepy Pain Management: Satisfactory Analgesia PONV: None Cardiovascular Status: Hemodynamically Stable Respiratory Status: Stable Respiratory Status and Supplemental O2 (NC or FM) Postoperative Fluid Status: Intravascular EUvolemia Possible Anesthetic Complications: NONE apparent at time of evaluation Final Primary Anesthesia Type: General (The anesthetic type performed was the same as planned.) Comments: Anesthesia Procedure Notes - Ed Obrien MD - 11/23/2021 1:02 PM EDT Associated Order(s): Anesthesia Block Anesthesia Block Date/Time: 11/23/2021 12:40 PM Performed by: Ed Obrien MD Authorized by: Jeremías Bergman MD Start Time: 11/23/2021 12:40 PM End Time: 11/23/2021 12:50 PM Indication: Post-op Pain Control Post-op pain management at the request of surgeon. Block Type: Sciatic and saphenous nerve block/mid thigh sciatic/ popliteal nerve block Laterality: Right Position: Supine Prep: Chlorhexidine, patient draped and mask, cap, sterile gloves, hand hygeine Block Technique: SonoPlex 21 10 cm Ultrasound Guided: YES and in-plane Ultrasound Image Saved Ultrasound guidance was used to identify the targeted neuronal structure. Ultrasound was also used to identify needle position and to identify tissue (bone, muscle, and blood vessels) to prevent inadvertent intraneural or intravascular needle placement and injection. The spread of local anesthetic was confirmed with live ultrasound imaging. Single-Shot: Single-shot Local Anesthetic Volume(s) Injected for Nerve Block: ROpivacaine 0.5% - Perineural 30 mL - 11/23/2021 12:50:00 PM Nerve Sensory/MotorTest: Events: no complications Staff: Resident/PERFORMANCE TEST ARCHITECT:: Berny Sharma MD Fellow:: Ed Obrien MD Attending Physician:: Jeremías Bergman MD Notes: Target structures, needle, and local anesthetic spread were visualized under US guidance for the duration of the procedure. No blood aspirated, no pain on injection, no paresthesias. No needle to nerve contact was observed on ultrasound. Anesthesia Preprocedure Evaluation - Ed Obrien MD - 11/23/2021 10:43 AM EDT Pre-Anesthesia Evaluation for: Mahin Ramos a 66 y.o. male. Procedure(s): DEBRIDEMENT SKIN, SUBCU, MUSCLE, BONE, LOWER EXTREMITY (WRVU 4.1) MODIFIER WOUND VAC Patient Active Problem List Diagnosis Date Noted [...] ??? Patient has active durable power of car lubricator (DPOA) designee for healthcare 05/29/2019 ??? Methadone [...] 12.71) performed by Geovanna Lewis MD at [facility] MAIN OR ??? PRO AMPUTATION TOE, MT-P JT Right 11/18/2021 AMPUTATION TOE, METATARSO-PHALANGEAL JOINT (WRVU 5.82) performed by Sammy Baker MD at [facility] E[place]NE ??? PRO TOTAL KNEE ARTHROPLASTY Left 12/13/2015 @TOTAL KNEE ARTHROPLASTY performed by Gordon Mallory MD at [facility] MAIN OR ??? PRO UPPER GI ENDOSCOPY, DIAGNOSTIC Bilateral 08/17/2015 EGD, UPPER GI ENDOSCOPY performed by Trev Hong MD at [facility] ENDOSCOPY ??? REVISION TOTAL HIP ARTHROPLASTY [...] Physical Exam: Preprocedure Vitals Current as of 11/23/21 1043 BP: 158/113 Pulse: 89 Resp: 20 SpO2: 98 Temp: 36.5 ??C (97.7 ??F) Height: 175.3 cm (5' 9) (11/20/21) Weight: 98.2 kg (216 lb 9.6 oz) (11/18/21) BMI: 31.99 IBW: 70.7 kg (155 lb 15.1 oz) Last edited 11/23/21 0900 by MARTÍN Anesthesia Physical Exam Last Filed Perioperative Cognitive Screening None Anesthesia Plan: ASA 3 general, with a(n) intravenous induction 66 yo, 98 kg (BMI 32), male, with a PMHx of HTN, GERD, Depression, Hep C, COPD, Cirrhosis, SDH, Urinary Retention, and previous right great toe amp, who presents for right debridement. Allergies: Morphine EKG: (11/20/21) Normal sinus rhythm Anteroseptal infarct , age undetermined Prolonged QT Abnormal ECG Anesthesia Plan: Pre-op Pop-Saph block GA with ETT/LMA Ed Obrien MD Region - Other Informed Consent: Anesthetic plan and risks discussed with patient and spouse. Plan discussed with fellow, resident, PERFORMANCE TEST ARCHITECT and attending. Anesthesia Screening Anesthesia Preprocedure Evaluation - Jeremías Bergman MD - 11/23/2021 10:39 AM EDT Pre-Anesthesia Evaluation for: Mahin Ramos a 66 y.o. male. Procedure(s): DEBRIDEMENT SKIN, SUBCU, MUSCLE, BONE, LOWER EXTREMITY (WRVU 4.1) MODIFIER WOUND VAC Patient Active Problem List Diagnosis Date Noted ??? Pruritic rash 08/22/2020 ??? Alcohol withdrawal syndrome, with delirium 11/20/2021 ? ? S/p right great toe amp, [...] ??? Patient has active durable power of car lubricator (DPOA) designee for healthcare 05/29/2019 ??? Methadone [...] 12.71) performed by Geovanna Lewis MD at [facility] MAIN OR ??? PRO AMPUTATION TOE, MT-P JT Right 11/18/2021 AMPUTATION TOE, METATARSO-PHALANGEAL JOINT (WRVU 5.82) performed by Sammy Baker MD at [facility] [place] ??? PRO TOTAL KNEE ARTHROPLASTY Left 12/13/2015 @TOTAL KNEE ARTHROPLASTY performed by Gordon Mallory MD at [facility] MAIN OR ??? PRO UPPER GI ENDOSCOPY, DIAGNOSTIC Bilateral 08/17/2015 EGD, UPPER GI ENDOSCOPY performed by Trev Hong MD at [facility] ENDOSCOPY ??? REVISION TOTAL HIP ARTHROPLASTY [...] Physical Exam: Preprocedure Vitals Current as of 11/20/21 1612 BP: 179/110 Pulse: Resp: 20 SpO2: 88 Temp: 37.3 ??C (99.1 ??F) Height: Weight: 98.2 kg (216 lb 9.6 oz) (11/18/21) BMI: IBW: Last edited 11/20/21 1551 by MT Airway Assessment: Mallampati: II TM distance: >3 FB Neck ROM: full Cardiovascular Assessment: Rhythm: regular Rate: normal Pulmonary Assessment: unlabored breathing Dental Assessment: (+) edentulous, upper dentures and lower dentures Misc Assessment: Last Filed Perioperative Cognitive Screening None Anesthesia Plan: ASA 3 general, with a(n) inhalational induction 66 yo male here for right foot I and D and wound vac. S/p partial amp for osteomyelitis/nec fasc. NPO. Had increased agitation requiring 4 pt restraints overnight. This AM on my exam patient oriented to name, November 2021, [facility]. PMH: current smoker, anxiety, EtOH abuse, chronic pain on methadone daily and gabapentin daily, cirrhosis history (INR and plats WNL), hep C, HTN, COPD, neuropathy PSH: spine surgery, TKA under general, NATHANAEL, endos Plan : Inhalational induction. GA with LMA. PNB for post op pain control per surgeon request. Serialconsent from . Region - Other Informed Consent: Anesthetic plan and risks discussed with patient. Plan discussed with PERFORMANCE TEST ARCHITECT and resident. Anesthesia Screening documented in this encounter Plan of Treatment Upcoming Encounters Date Type Specialty Care Team Description 12/11/2021 Appointment Radiology 12/11/2021 Office Visit Orthopaedics Marion Tavera APRN [facility] ORTHOPAEDIC SURG [place], [place] [address] (Jorge arzate) 01/15/2022 Appointment Radiology Stiven Cervantes MD [facility] Pulmonary Medici [place], [place] [address] (Wo rk) Scheduled Procedures Name [...] Plan 9:07 AM EDT) [facility] Note: Formatting of this note might be d ifferent from the original. Patient Goal: To experience less side ef fects than his past regimen of Peg and Ribavirin Timeframe to meet goal: 3 months of ther apy documented as of this encounter Procedures Procedure Name Priority Date/Time Associated Diagnosis Comme nts ANESTHESIA BLOCK Routine 11/23/2021 12:40 PM Resu lts for this EDT procedure are i n the results section. documented in this encounter Results Anesthesia Block (11/23/2021 12:40 PM EDT) Narrative Jeremías Bergman MD - 11/23/2021 12:40 [...] Nerve Sensory/MotorTest: ??Events: no complications ?? Staff: ??Resident/PERFORMANCE TEST ARCHITECT:: ??Berny Sharma MD ??Fellow:: ??Ed Obrien MD ??Attending Physician:: ??Jeremías Bergman MD Notes: ?? Target structures, needle, and local anesthetic spread were visualized under US guidance for the duration of th e procedure. No blood aspirated, no pain on injection, no paresthesias. N o needle to nerve contact was observed on ultrasound. Jeremías Bergman MD COMPUTER COMPOSITOR [facility] documented in this encounter Visit Diagnoses Not on filedocumented in this encounter Administered Medications Inactive Administered Medications - up to 3 most recent administrations Medication Order MAR Action Action Date Dose Rate Site ePHEDrine sulfate (5 mg/mL) Given 11/23/2021 1:13 PM EDT 5 mg multi-dose injection Intravenous, PRN, Starting on Fri11/23/21 at 1310, Until Fri11/23/21 at 1344, Anesthesia Intra-op, Routine Given 11/23/2021 1:10 PM EDT 10 mg HYDROmorphone (Dilaudid) (2 mg/mL) multi-dose Given 1:14 PM EDT 0.2 mg injection solution Intravenous, PRN, Starting on Fri11/23/21 at 1246, Until Fri11/23/21 at 1344, Anesthesia Intra-op, Routine Given 11/23/2021 1:04 PM EDT 0.2 mg Given 11/23/2021 12:46 PM EDT 0.6 mg lactated ringers infusion New Bag 11/23/2021 12:35 PM EDT Intravenous, CONTINUOUS PRN, Starting on Fri11/23/21 at 1235, Until Fri11/23/21 at 1344, Anesthesia Intra-op ondansetron (pf) (Zofran) (2 mg/mL) inje ction Given 11/23/2021 1:26 PM EDT 4 mg Intravenous, PRN, Starting on Fri11/23/21 at 1326, Until Fri11/23/21 at 1344, Anesthesia Intra-op, Routine PHENYLephrine in NS (PF) (PERRY-SYNEPHRINE) Given 11/23/2021 1:25 PM EDT 160 mcg 0.8 mg/10 mL (80 mcg/mL) multi-dose injection Syrg Intravenous, PRN, Starting on Fri11/23/21 at 1250, Until Fri11/23/21 at 1344, Anesthesia Intra-op, Routine Given 11/23/2021 1:13 PM EDT 80 mcg Given 11/23/2021 1:04 PM EDT 80 mcg piperacillin-tazobactam (Zosyn) 3.375 g vial Bolus 1:02 [...] 3:25 PM EDT 3.375 g 12.5 mL/hr propofoL (Diprivan) 10 mg/mL bolus injection Given 12:36 PM EDT 200 mg (Anesthesia) Intravenous, PRN, Starting on Fri11/23/21 at 1236, Until Fri11/23/21 at 1344, Anesthesia Intra-op ROpivacaine (PF) (Naropin) 0.5% (5 mg/mL) Given 11/23/2021 12:50 PM EDT 30 mLs injection Perineural, Starting on Fri11/23/21 at 1250, Until Fri11/23/21 at 1250, Anesthesia Intra-op, Routine documented in this encounter Care Teams Steam Press Operator Relationship Specialty Start Date End Date Brian Fall APRN PCP - General Internal Medicine [birth year][address] [place] [phone] documented as of this encounter
--- OUTSIDE RECORDS SUMMARY | 2021-11-30 08:17 | XMS_ITS | Encounter Summary ---
:1955 Author Organization [facility] [place] [address] Care Team Providers Name Role Phone Brian Fall APRN Primary Care Provider Reason for Visit Reason Comments Leg Pain Auth/Cert Specialty Diagnoses / Procedures Referred By Contact Refer red To Contact Diagnoses Necrotizing fasciitis Cellulitis of leg, right Necrotic toes Infected Toe Valentina Montoya MD [place] [id number] Referral ID Status Reason Start Date Expiration Date Visits Requ ested Visits Authorized [id number] 1 1 Encounter Details Date Type Department Care Team Description 11/23/2021 Surgery Main Operating Room Jarad Flores MD AMPUTATION, [facility] JOSSIE TATACOY TOE, [facility] DR SCOTT (WRVU 6.64) [facility] [address] [place] [address] [place] [address] [phone] Social History Tobacco Use Types Packs/Day Years [...] Sign Reading Time Taken Comments Blood Pressure 158/113 11/23/2021 9:00 AM EDT Pulse 89 11/23/2021 9:00 AM EDT Temperature 36.5 ??C (97.7 ??F) 11/23/2021 9:00 AM EDT Respiratory Rate 20 11/23/2021 9:00 AM EDT Oxygen Saturation 98% 11/23/2021 9:00 AM EDT Inhaled Oxygen Concentration - - [...] Soledad Ramos Patient Age: 66 y.o. Language: Honduran Race: White Ethnicity: Not nor Admit date: 11/18/2021 Discharge date and time: 11/29/2021 Attending Physician: Jennifer Martinez MD Discharge Provider: NIEVES Hutton Follow-up Recommendations for Providers: - Continue methadone for chronic pain dose adjustments per [facility]. His last dose of methadone was 45 mg on 11/29/2021. Last QTC done on the same day was 494. Plan discussed with Dr. Garrison at [facility] to increase by 10 mg daily while monitoring daily EKG. - Patient is on IV ertapenem 1 g daily and IV daptomycin 700 mg daily through 01/06 for osteomyelitis. His IV infusions are set up with BELL Mendoza in [facility], with his next appointment on 11/30 at 1 PM. - He will need PCP, ID, orthopedic follow-up Inpatient Provider Contact Information: For questions regarding this document or issues relating to this hospitalization on the Medical Service, please contact your inpatient physician through the [facility] Impregnation Operator . Issues after hours and on weekends [...] ??? Patient has active durable power of divorce attorney (DPOA) designee for healthcare ??? Methadone [...] BONE, LOWER EXTREMITY (WRVU 4.1) [facility] 11/25/2021 Other Major Procedures: N/A History of Presentation: As per admission H&P on 11/18: Soledad Ramos is a 66 y.o. male with hx of EtOH abuse with alcoholic neuropathy and chronic b/l foot wounds(previous osteomyelitis), prior left 4th- 5th amputations, COPD on 2 L O2 at home, opioid usedisorder on methadone and mild cognitive impairment presenting for admission from the [facility] (transferred from [facility] ED) at the request of the orthopedic surgery service for necrotizing soft tissue infection of the right foot/great toe. History obtained from patient and chart review . ?? Soledad relates that he initially presented to [facility] this AM after rapid [...] any fevers orchills. ?? He presented to [facility] where his labs were significant for a WBC 23k, Cr 1.1, Hgb 13, Glucose 117, Na 137, CRP unknown (not obtained). He was administered clindamycin and Vancomycin [facility] and recommended transfer to [facility] ED for further work-up and evaluation for [...] asked hospital medicine to admit patient given ia s medical complexity and multiple co-morbidities. Hospital [...] to follow-up with daily infusion clinic - [facility] in [facility] tomorrow at 1 PM. The infectious disease providers well call you to set up a follow-up appointment towards the end of your IV antibiotic course. You also have an orthopedic follow-up at 2:30 PM on 12/11. You may continue with lpez-fqf-udyyhea Tylenol as needed for pain, not to exceed 4000 mg daily. We also resumed your methadone dose, you are now on 45 mg daily. You will need to see your [facility] provider for your next methadone dose, [...] mg, he will need to follow-up at [facility] tomorrow to have your new dose set by them. Stop these medications: - Zofran Follow-up: Future Appointments Date Time Provider Department [facility] L[facility] Your Inpatient Doctor: LORRIE LUNDBERG HANNAH L BHISE, VIRAJ R MUELLER, CATHERINE L Your Primary Care Provider: @PCPID@ For questions regarding this document or issues relating to this hospitalization on the Medical Service, please contact your inpatient physician through the [facility] Impregnation Operator . Issues after hours and on weekends [...] dressing on until follow-up. Call your doctor ([phone]) if you develop: 1. Fever greater than [...] your intake of calcium should be at [id number] a day and your vitamin D intake should be at least 800 IU per day. FOLLOW-UP APPOINTMENTS: 1. You will have follow-up appointments at [facility] as indicated in Future Appointment and Orders. 2. Please call Orthopedics at if you have any questions or concerns, as your follow-up is important to us. Future Appointments Date Time Provider Department Center 12/11/2021 1:00 PM [facility] DX ROOM 2 MH Xray [facility] Rad 12/11/2021 2:30 PM Marion Tavera APRN [facility] ORTH 3C [facility] 01/15/2022 12:[address] [facility] [address] [facility] RAD CT [facility] Rad SAME DAY PROGRAM POST-OPERATIVE INSTRUCTIONS [...] 24 hours, please call the Anesthesiology Department: [phone] Shortness of breath: If you have severe shortness of breath that seems to go on and on, please go tothe nearest ER (emergency room). If a nerve block lasts longer than 48 hours, take action. If the nerve block does not wear off within 48 hours, please call the Anesthesiology Department: [phone] Protect the part of your body that [...] the Anesthesiology Department with concerns or questions: [phone] After hours: Call the hospital mva operator and ask for the anesthesiologist (deb talbot) cushion spring assembler: [phone] Updated: 03/19/21 If you have questions or concerns: Friday through Friday, 8 AM - 5 PM, please call Sammy Baker MD's office at . If it is after 5 PM or on the weekend, please call and ask to speak with the Orthopedic resident on-call. Substance Use Treatment, Harm-Reduction, and Relapse Prevention Resources Residential Treatment: [id number] [address] Intensive Outpatient Program: [facility] [address] [place] [address] Individual Counseling: [address] [address] [facility] [address] [place] [address] x6 Anne-Marie Tang, [address] [address] Offers EMDR Therapy You may also search www.psychologytoday.Integrated Micro-Chromatography Systems or Flashstock for therapists in your area. EMDR Therapy [...] completed in fewer sessions than other psychotherapies. www.emdria.org/uhtsu-unno-hqaqxtq/ Medication Assisted Therapy: [address] [place] [address] [place] [address] Peer Support Groups Alcoholics Anonymous (AA) [place]: , www.nhaa.net Narcotics Anonymous (NA) [place]: , www.gmana.org Community Peer Support Center [address] [address] Online AA and NA Meetings AA, NA, Refuge Recovery, SMART Recovery www.Libratone AA Video Meetings www.aa-intergroup.org/directory_audio-video.php AA Text Chat Meetings www.aa.intergroup.org/directory.php NA Video Meetings www.virtual-na.org/meetings NA Text Chat Meetings Www.neveraloneclub.org SMART Recovery Meetings via Zoom 5:00-6:00pm, free and open to all To join Zoom meetin. Visit www.Termii webtech limited 2. Click on calendar on top of toolbar 3. Find the correct meeting date and time 4. Click the zoom link and enter password provided Additional Substance Use Treatment Resources Www.vtaddictionservices.org www.healthvermont.gov/alcohol-drugs www.[place] [address].org/ (Search for Substance Use) www.psychologytoday.com/ Www.rethinkingdrinking.niaaa.nih.gov/ www.samhsa.gov/otvsopcxvk-ihratfpu-ufbemvpmg/qxzuyimaetkb-njmtdvq-hxrv/treatment -practitioner-physical therapy technician Mental Health Crisis National Mental Health Crisis Line: Dial 988 www.[facility].gov/find-help/988 Harm-Reduction Resources Mobile operations. For more information about receiving supplies: including syringe exchange, fentanyl test strips, and naloxone, or to schedule an appointment: [place] clients call and leave a message for Yoana (ext. 105) or Zbigniew Quigley (ext. 104). [place] clients call to speak with Zbigniew Waddell [...] is being approved. Online Stress Reduction Resources www.Ecolibrium Solar/videos-features/videos/nxsbnlfvs-dxpmxbjvx-7-7-8-breath/ www.Warplyord.org/2013/qeudlahpm-argzfvreg-xhfzwix-moment/ www.headsEferio/ www.mindful.org/ www.freeYooDealness.org/ Employment Agency Working [address] [address] secondtomes@EduKoala.Integrated Micro[employer]Ch[employer]at[employer] Systems Providing an opportunity for successful employment and recovery by empowering individuals to manage challenges because of substance use addiction and past convictions. YOU ARE SCHEDULED FOR A FOLLOW UP APPOINTMENT WITH YOUR PRIMARY CARE PROVIDER ON 12/10/2021 AT 9:30AM Future Appointments and Orders Future Appointments and Orders Future Appointments Provider Department Dept Phone 12/11/2021 1:00 PM [facility] DX ROOM 2 XRay at [facility] Arrive at: [facility] [phone] Please go to [facility] ([place] Location). 12/11/2021 2:30 PM Marion Tavera APRN Orthopaedics at [facility] Arrive at: [facility] [phone] 01/15/2022 12:[address] [facility] [address] CT Scan at [facility] Arrive at: 3Z RADIOLOGY [phone] Future Orders Complete By Expires XR Foot Min 3 views Right (Generic) [31742 Custom] 12/11/2021 05/30/2022 Process Instructions: Scheduling Instructions: Comments: Questions: Where will study be performed?: [facility] Radiology Portable exam?: Reason for exam and clinical history: s/p 1st toe amp Clinical information / hansen questions for radiologist: Stat read required?: Date of injury if applicable: Requested Time: OPAT: Order / Recommendation for Post Discharge IV Antibiotic Management [RZG856 CPT(R)] As directed Process Instructions: If no progress note charted, please enter Clinical details in comments. Scheduling Instructions: Comments: Please Fax all results to: OPAT Program Infectious Disease Section [facility], [place] [address] FAX: After hours, please contact the Infectious Disease Physician cushion spring assembler at . If this order was signed greater than 72 hours prior to [facility] discharge, please call to confirm the accuracy [...] Saline then 3 ml heparin (10 units/ml) senior living for medication administration/district supervisor and catheter care/maintenance authorized. PICC Dressing Change weekly and PRN Please use CHG or Bio Patch RNs: Please care for PICC line including dressing changes weekly and prn. Please draw labs every Enrique and PRN and fax results to OPAT at [phone]. Please draw labs off PICC line. See [...] Instructions: Scheduling Instructions: Comments: Soledad Ramos [address] [facility] [address] (home) No relevant phone [...] WHEELED WALKER (E0143) Referral for Outpatient Antibiotics [WTE5374 CPT(R)] As directed Process Instructions: Scheduling Instructions: Comments: Follow OPAT orders Questions: Vendor / contact information: [facility] Patient location post discharge: Home Service requested: Home ABX with supplies / PICC line Start date: Responsible MD post discharge contact info: Referral to Home Health [REF34 Custom] As directed Process Instructions: If no progress note charted, please enter Clinical details in comments. Scheduling Instructions: Comments: Please evaluate Soledad Ramos for admission to Home Health. [address] [facility] [address] (home) Date of : 1955 DOCUMENTATION FOR VNA SERVICES (INCLUDING THOSE PATIENTS WITH MEDICARE COVERAGE REQUIRING HOME VNA SERVICES AND/OR HOSPICE SERVICES) PATIENT'S LOCATION: Soledad Ramos [address] [facility] [phone] (home) Cell: No relevant phone numbers on file. Hospital Tray Service Worker's Name: Self / In discussion with the attending physician, it is certified that this patient is under their care and that they, or a Nurse Practitioner,Clinical Nurse specialist or Physician Oven Press Tender who is working directly with them, had [...] AGENCY: [facility] and [address] [address] PHONE: [phone] FAX: [phone] Start of care: Day of discharge FOR [...] be obtained from this patient'sPCP: Brian Fall, CONTRACT GRAPHIC DESIGNER [address] [facility] [address] All VNA agencies which cover the area of patient's residence have been reviewed, either verbally or in writing, and patient/family have chosen the home health care agency noted Questions: Disciplines Requested: Nursing Physical Therapy Occupational Therapy Discharge References/Attachments None documented in this encounter Discharge Instructions Discharge InstructionsNiki Gonzalez [facility] - 11/18/2021 9:50 PM EDT Orthopedic Surgery [...] dressing on until follow-up. Call your doctor ([phone]) if you develop: Fever greater than 100.5 [...] your intake of calcium should be at [id number] a day and your vitamin D intake should be at least 800 IU per day. FOLLOW-UP APPOINTMENTS: 1. You will have follow-up appointments at [facility] as indicated in Future Appointment and Orders. 2. Please call Orthopedics at if you have any questions or concerns, as your follow-up is important to us. Future Appointments Date Time Provider Department Center 12/11/2021 1:00 PM [facility] DX ROOM 2 Xray [facility] Rad 12/11/2021 2:30 PM Marion Tavera APRN [facility] ORTH 3C [facility] 01/15/2022 12:[address] [facility] [address] [facility] RAD CT [facility] Rad SAME DAY PROGRAM POST-OPERATIVE INSTRUCTIONS [...] 24 hours, please call the Anesthesiology Department: [phone] Shortness of breath: If you have severe shortness of breath that seems to go on and on, please go tothe nearest ER (emergency room). If a nerve block lasts longer than 48 hours, take action. If the nerve block does not wear off within 48 hours, please call the Anesthesiology Department: [phone] Protect the part of your body that [...] the Anesthesiology Department with concerns or questions: [phone] After hours: Call the hospital mva operator and ask for the anesthesiologist (deb talbot) cushion spring assembler: [phone] Updated: 03/19/21 If you have questions or concerns: Friday through Friday, 8 AM - 5 PM, please call Sammy Baker MD's office at . If it is after 5 PM or on the weekend, please call and ask to speak with the Orthopedic resident on-call. Substance Use Treatment, Harm-Reduction, and Relapse Prevention Resources Residential Treatment: [id number] [address] Intensive Outpatient Program: [address] [address] Individual Counseling: [address] [address] [facility] [address] [place] [phone] [phone] Anne-Marie Tang[address] [address] Offers EMDR Therapy You may also search www.psychologytoday.com or Flashstock for therapists in your area. EMDR Therapy [...] completed in fewer sessions than other psychotherapies. www.emdria.org/obgkb-yypq-alvqrge/ Medication Assisted Therapy: [address] [place] [address] [place] [address] Peer Support Groups Alcoholics Anonymous (AA) [place]: , www.nhaa.net Narcotics Anonymous (NA) [place]: , www.gmana.org Community Peer Support Center [facility] [address] [place] [address] Online AA and NA Meetings AA, NA, Refuge Recovery, SMART Recovery www.Libratone AA Video Meetings www.aaISIGN Mediaintergroup.org/directory_audio-video.php AA Text Chat Meetings www.aa.intergroup.org/directory.php NA Video Meetings www.virtualISIGN Mediana.org/meetings NA Text Chat Meetings Www.neveraloneclub.org SMART Recovery Meetings via Zoom 5:00-6:00pm, free and open to all To join Zoom meeting: Visit www.Termii webtech limited Click on calendar on top of toolbar Find the correct meeting date and time Click the zoom link and enter password provided Additional Substance Use Treatment Resources Www.Precision Therapeuticsddictionservices.org www.healthvermont.gov/alcohol-drugs www.avlnroq876.Yodh Power and Technologies Group Limited/ (Search for Substance Use) www.SightCine/ Www.rethinkingdrinking.niaaa.nih.gov/ www.samhsa.gov/fyepwncigy-zdwbaihi-glezseuit/xpqumnnhhish-pawvalh-aqgk/treatment -practitioner-physical therapy technician Mental Health Crisis [place] [facility] Crisis Line: Dial 988 www.[facility].gov/find-help/983 Harm-Reduction Resources Mobile operations. For more information about receiving supplies: including syringe exchange, fentanyl test strips, and naloxone, or to schedule an appointment: [place] clients call and leave a message for Yoana (ext. 105) or Zbigniew Quigley (ext. 104). [place] clients call to speak with Zbigniew Waddell [...] is being approved. Online Stress Reduction Resources www.Ecolibrium Solar/videos-features/videos/owgbtwyqp-pbcnbfuds-5-7-8-breath/ www.themindfulword.org/2013/rprxfmgnt-jceeaxfol-cymvkma-moment/ www.headspace.com/ www.mindful.org/ www.freemindfulness.org/ Employment Agency Working [place] [address] [place] [address] rom@Librato Providing an opportunity for successful employment and [...] to follow-up with daily infusion clinic - [facility] in [facility] tomorrow at 1 PM. The infectious disease providers well call you to set up a follow-up appointment towards the end of your IV antibiotic course. You also have an orthopedic follow-up at 2:30 PM on 12/11. You may continue with jdnm-vee-qpkvpdg Tylenol as needed for pain, not to [...] mg, he will need to follow-up at [facility] tomorrow to have your new dose set by them. Stop these medications: - Zofran Follow-up: Future Appointments Date Time Provider Department [facility] L[facility] Your Inpatient Doctor: LORRIE LUNDBERG HANNAH L BHISE, VIRAJ R MUELLER, CATHERINE L Your Primary Care Provider: @PCPID@ For questions regarding this document or issues relating to this hospitalization on the Medical Service, please contact your inpatient physician through the [facility] Impregnation Operator . Issues after hours and on weekends [...] Nursing Discharge Summary Nursing Discharge Summary Soledad Esquivel Richard??is a 66 y.o.??male??with hx of EtOH abuse with alcoholic neuropathy and chronic b/l foot wounds (previous osteomyelitis), prior left 4th- 5th amputations, COPD on 2 L O2 at home, opioid use disorder on methadone and mild cognitive impairment presented 11/18/21??for admission to [facility]??(transferred from [facility] ED) at the request of the orthopedic surgery service for necrotizing soft tissue infection of the right foot/great toe. A&Ox3-4, forgetful but easily reoriented. Anxious, Ativan given once w/ relief. VSS on RA. Telemetry unremarkable, HR 70-80s NSR. Lungs diminished throughout, denies SOB/CUNHA & refusing nebs at this time. RUE PICC c/d/i, placed for alf abx treatment. All meds given per MAR. [...] ??? Patient has active durable power of divorce attorney (DPOA) designee for healthcare ??? Methadone [...] spent >30 minutes (Day of Discharge Code 91104) involved in the final examination of the [...] cognitive impairment presenting for admission from the [facility] (transferred from [facility] ED) at the request of the [...] [facility] Pt was pleasant and participated in [...] plan as stated. Time IN / OUT: 6954-4084 Total Minutes, Physical Therapy: 25 Billing Code: Functional activity x 2 Radha Pierre, PT Pager: [phone] Physical Therapy Inpatient Rehabilitation Department Malinda Díaz [...] Events: - Unable to reach provider at [facility] as they are currently sick and [...] interpretation Confirmed by fellow MD Devorah, Debra ([id number]) on 11/28/2021 11:56:35 AM Confirmed by MD James Jon ([id number]) on 11/28/2021 1:18:37 PM QTCCALC 495 [...] who have questions please contact the health customer care team coach that requested your imaging first. Electronically signed by: Wicho Michael MD, [facility] ([phone]), at 11/19/2021 2:58 AM XR Foot Min [...] who have questions please contact the health customer care team coach that requested your imaging first. Electronically signed by: Penny Ge MD, [facility] ([phone]), at 11/23/2021 7:11 PM XR PICC Placement Over 5 Years with [...] who have questions please contact the health customer care team coach that requested your imaging first. Electronically signed by: Penny Ge MD, [facility] ([phone]), at 11/27/2021 4:00 PM Inpatient Medications: Scheduled ??? lactobacillus with pectin [...] cognitive impairment presented 11/18/21 for admission to [facility] (transferred from [facility] ED) at the request of the [...] withdrawal-suspected #Prolonged QTc - Call patient's clinic ([facility], ) in AM to confirm 90 [...] oxygen about a month or so ago. ISABEL made aware #HTN - Resume home lisinopril [...] Tubes/ Drains Wound Vac DVT prophylaxis Lovenox PT/OT/DATABASE TECHNICIAN ordered Wound care Per surgical team at this time Anticipated Disposition home with home health, home with supervision (pending progress made while hospitalized) Team Pager ( Coverage 02/12): [phone] Family Update At bedside 11/28 PCP LISA Levi PA 11/28/2021 Elli Obrien, RN - 11/28/2021 12:17 PM EDT Office of Care Management (OCM /Kassy (ISABLE)Discharge planning ) Service :Med Pager #[phone] e-DH reviewed. Report received from [facility] Patient plan of care discussed [...] planning. Elli Obrien RN CM Pager # [phone] Grace Montero OT - 11/28/2021 11:31 AM [...] Occupational Therapy: 34 (SCHM x 2) Pager: [phone] Grace Montero OT Occupational Therapy Rehabilitation Department [...] 24 hour events: 11/27PM: Transferred from [facility]. Report taken from Bridgette at 2340. [...] with Ax2 w/ FWW. This RN and SEASONING SPRAYER caught him before he fell over. Chemo [...] I assumed care for this patient from [phone]. Patient ambulating to bathroom with 1 assist [...] who have questions please contact the health customer care team coach that requested your imaging first. Electronically signed by: Wicho Michael MD, [facility] ([phone]), at 11/19/2021 2:58 AM XR Foot Min [...] who have questions please contact the health customer care team coach that requested your imaging first. Electronically signed by: Penny Ge MD, [facility] ([phone]), at 11/23/2021 7:11 PM XR PICC Placement Over 5 Years with [...] who have questions please contact the health customer care team coach that requested your imaging first. Electronically signed by: Penny Ge MD, [facility] ([phone]), at 11/27/2021 4:00 PM Inpatient Medications: Scheduled ??? acetaminophen 650 mg [...] cognitive impairment presented 11/18/21 for admission to [facility] (transferred from [facility] ED) at the request of the [...] withdrawal-suspected #Prolonged QTc - Call patient's clinic ([facility], ) in AM to confirm 90 [...] Tubes/ Drains Wound Vac DVT prophylaxis Lovenox PT/OT/DATABASE TECHNICIAN ordered Wound care Per surgical team at this time Anticipated Disposition home with home health, home with supervision (pending progress made while hospitalized) Team Pager ( Coverage 02/12): [phone] Family Update At bedside 11/25 PCP LISA [...] cognitive impairment presenting for admission from the [facility] (transferred from [facility] ED) at the request of the [...] [facility] Pt was pleasant and participated in [...] plan as stated. Time IN / OUT: 8756-5728 Total Minutes, Physical Therapy: 29 Billing Code: Functional activity x 2 Radha Pierre, PT Pager: [phone] Physical Therapy Inpatient Rehabilitation Department Judit Spencer [...] provider for end of therapy visit: Donal or Judit On 11/27, I spent 30 minutes in a arr-[id number]-bg-face encounter arranging the patient to receive home [...] Patient screened for hospital length of stay. Skin Peeling Machine Operator connected with patient and over the phone.Per [...] answered at this time Luz Wright, GABRIELLA [phone] Elli Obrien, RN - 11/27/2021 1:01 PM EDT The Patient has been provided a list of Home Health Agencies/DME vendors which serve their preferredgeographic area. A letter describing our affiliations was reviewed with them and they were educated about their right to choose where referrals are placed. Provided patient with [facility] Star Quality Rating for Home care Patient requests referral to : [facility] and [address] [address] [place], [place] or [facility] Intake office: tel: [phone] [place], [place] Office [place], [place] Office Expected date of discharge: 11/30/2021 Referral routed to the Associate Editor for matching with agency/vendor and to provide [...] reports that he normally gets Methadone from [facility] and has for years, takes 90mg daily. He denies any fever or chills, no pain to hisright foot. Don reports that diarrhea started last night, has not had associated abdominal pain. He's gone about 3-4 times since last night and thinks that it's because he's not taking his methadone. O: Vitals Flowsheet Row ED to Hosp-Admission (Current) from 11/18/2021 in 1 [facility] Weight 91.9 kg (202 lb 11.2 oz) [...] 4th ray amputation), who was admitted to [facility] on 11/[address] [facility] with a R great toe necrotizing [...] MD Infectious disease fellow Green team pager [phone] I have seen the patient and reviewed [...] is buy a big bottle of bourbon. green prize packer notified to ensure that BIT is following. [...] Padilla PA - 11/26/2021 2:14 PM EDT [facility] Medicine Daily Progress Note Admit Date: 11/18/2021 [...] who have questions please contact the health customer care team coach that requested your imaging first. Electronically signed by: Wicho Michael MD, [facility] ([phone]), at 11/19/2021 2:58 AM XR Foot Min [...] who have questions please contact the health customer care team coach that requested your imaging first. Electronically signed by: Penny Ge MD, [facility] ([phone]), at 11/23/2021 7:11 PM Inpatient Medications: Scheduled ??? furosemide 80 mg [...] cognitive impairment presented 11/18/21 for admission to [facility] (transferred from [facility] ED) at the request of the [...] #Acute alcohol withdrawal-suspected - Call patient's clinic ([facility], ) in AM to confirm 90 [...] Tubes/ Drains Wound Vac DVT prophylaxis Lovenox PT/OT/DATABASE TECHNICIAN ordered Wound care Per surgical team at this time Anticipated Disposition home with home health, home with supervision (pending progress made while hospitalized) Team Pager ( Coverage 02/12): [phone] Family Update At bedside 11/25 PCP LISA [...] 12.71) performed by Geovanna Lewis MD at [facility] MAIN OR ??? PRO AMPUTATION FOOT, TRANSMETATARSAL Right 11/25/2021 AMPUTATION, TRANSMETATARSAL (WRVU 12.71) performed by Jarad Flores MD at [facility] MAIN OR ??? PRO AMPUTATION METATARSAL+TOE, SINGLE Right 11/23/2021 AMPUTATION, TRANSMETATARSAL TOE, ONE TOE (WRVU 6.64) performed by Jarad Flores MD at [facility] MAIN OR ??? PRO AMPUTATION TOE, MT-P JT Right 11/18/2021 AMPUTATION TOE, METATARSO-PHALANGEAL JOINT (WRVU 5.82) performed by Sammy Baker MD at [facility] [place] ? ? PRO DEBRIDEMENT BONE MUSCLE &/FASCIA 20 SQ CM/< Right 11/25/2021 DEBRIDEMENT SKIN, SUBCU, MUSCLE, BONE, LOWER EXTREMITY (WRVU 4.1) performed by Jarad Flores MD [facility] MAIN OR ??? PRO TOTAL KNEE ARTHROPLASTY Left 12/13/2015 @TOTAL KNEE ARTHROPLASTY performed by Gordon Mallory MD at [facility] MAIN OR ??? PRO UPPER GI ENDOSCOPY, DIAGNOSTIC Bilateral 08/17/2015 EGD, UPPER GI ENDOSCOPY performed by Trev Hong MD at [facility] ENDOSCOPY ??? REVISION TOTAL HIP ARTHROPLASTY [...] instrument andmeasurable assessment of functional outcome. Pager: [phone] Grace Montero OTR/L Occupational Therapy Rehabilitation Department Harley Raymond MD - 11/26/2021 5:27 AM EDT ORTHOPAEDIC SURGERY INPATIENT PROGRESS NOTE Patient Name: Soledad Ramos Age: 66 y.o. Surgery/Issue: s/p repeat I&D Attending: Dr. Flores Date of surgery: 11/23/2021 SUBJECTIVE / INTERVAL HISTORY: NAEON, AVSS. Hypertensive to the 180s. CoNS on intraop [...] ??? Patient has active durable power of divorce attorney (DPOA) designee for healthcare ??? Methadone [...] sign off at this time, please page [phone] with new questions. ?? Activity: NWB RLE DVT prophylaxis: rec lovenox Closure: Primary Closure - skin incision is completely closed without any wires, korey, drains or other devices Antibiotics: currently flagyl and ceftriaxone per primary Harley Raymond MD 11/26/2021 Future Appointments Date Time Provider Department Center 01/15/2022 12:[address] [facility] [address] [facility] [address] [facility] Rad Valerie Adams RN - 11/25/2021 5:32 PM EDT OUTCOME EVALUATION NOTE: ?? OUTCOME SUMMARY: ?? Assumed care of patient. VSS on RA. AOx3, disoriented to time. Pt appropriate, cooperative, and verypleasant. Pt went to OR today for I&D and additional TMA. AVSS. Dressing CDI.Tolerated procedurewell. Oriented upon return. Pt c/o 8-9/10 throbbing RLE pain. Pain management plan discussed with covering provider. PRN subq dilaudid given with varying effect. Pain adequately controlled after third administration. Pt stating pain tolerable at 7/10, but still uncomfortable. Team notified. Plan to [...] who have questions please contact the health customer care team coach that requested your imaging first. Electronically signed by: Wicho Michael MD, [facility] ([phone]), at 11/19/2021 2:58 AM XR Foot Min [...] who have questions please contact the health customer care team coach that requested your imaging first. Electronically signed by: Penny Ge MD, [facility] ([phone]), at 11/23/2021 7:11 PM Inpatient Medications: Scheduled ??? 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 ED) at the request of the [...] #Acute alcohol withdrawal-suspected - Call patient's clinic ([facility], ) in AM to confirm 90 [...] Tubes/ Drains Wound Vac DVT prophylaxis Lovenox PT/OT/DATABASE TECHNICIAN ordered Wound care Per surgical team at this time Anticipated Disposition TBD Team Pager (MD Coverage 02/12): [phone] Family Update At bedside 11/25 PCP LISA [...] ??? Patient has active durable power of divorce attorney (DPOA) designee for healthcare ??? Methadone [...] Time Provider Department Center 01/15/2022 12:[address] [facility] [address] [facility] [address] [facility] Rad Katey Ruffin RN - 11/25/2021 [...] pain unchanged, coping better however. Paged medicine CONTRACT GRAPHIC DESIGNER re: restarting home methadone, potential APS consult. [...] ??? Patient has active durable power of divorce attorney (DPOA) designee for healthcare ??? Methadone [...] Time Provider Department Center 01/15/2022 12:[address] [facility] [address] [facility] [address] [facility] Rad Patricia Villafana, LISA - 11/24/2021 3:18 PM EDT [facility] Medicine Daily Progress Note Admit Date: 11/18/2021 Hospital Day 6 days Active Hospital Problems Diagnosis ? ? S/p right great toe amp, I&D, vac 11/18/21 (Diego) ??? Alcohol withdrawal syndrome, with delirium Resolved Hospital Problems No resolved problems to display. 24 Hour Events: - Pleasant and cooperative this morning - pain well managed with SQ dilaudid - [place] be NPO at [place] for planned I+D with ortho on 11/25, [...] who have questions please contact the health customer care team coach that requested your imaging first. Electronically signed by: Wicho Michael MD, [facility] ([phone]), at 11/19/2021 2:58 AM XR Foot Min [...] who have questions please contact the health customer care team coach that requested your imaging first. Electronically signed by: Penny Ge MD, [facility] ([phone]), at 11/23/2021 7:11 PM Inpatient Medications: Scheduled ??? metoprolol succinate XL [...] cognitive impairment presented 11/18/21 for admission to [facility] (transferred from [facility] ED) at the request of the [...] #Acute alcohol withdrawal-suspected - Call patient's clinic ([facility], ) in AM to confirm 90 [...] Tubes/ Drains Wound Vac DVT prophylaxis Lovenox PT/OT/DATABASE TECHNICIAN ordered Wound care Per surgical team at this time Anticipated Disposition TBD Team Pager (MD Coverage 02/12): [phone] Family Update At bedside 11/22 PCP LISA [...] ??? Patient has active durable power of divorce attorney (DPOA) designee for healthcare ??? Methadone [...] of R foot. Please keep NPO at [place]. Activity: NWB RLE DVT prophylaxis: rec lovenox Closure: 2 black sponges, 1 white sponge - wound vac set to -125 mmHG Antibiotics: Per primary Brooks Schumacher MD 11/24/2021 Future Appointments Date Time Provider Department Center 01/15/2022 12:[address] [facility] [address] [facility] [address] [facility] Rad Jarad Flores MD - 11/23/2021 [...] ??? Patient has active durable power of divorce attorney (DPOA) designee for healthcare ??? Methadone [...] Time Provider Department Center 01/15/2022 12:[address] [facility] [address] [facility] [address] [facility] Rad Patricia Villafana, CONTRACT GRAPHIC DESIGNER - 11/23/2021 3:59 PM EDT Hospital Medicine [...] who have questions please contact the health customer care team coach that requested your imaging first. Electronically signed by: Wicho Michael MD, [facility] ([phone]), at 11/19/2021 2:58 AM Inpatient Medications: Scheduled ??? cefTRIAXone 2 g Intravenous Q24H ??? metroNIDAZOLE 500 mg Oral TID ??? lisinopriL 40 mg Oral Daily ??? thiamine 100 mg Oral Daily ??? folic acid 1,000 mcg Oral Daily ??? PHENobarbitaL 0.24 mg/kg/dose ([place]) Oral BID ??? pantoprazole EC 40 mg [...] cognitive impairment presented 11/18/21 for admission to [facility] (transferred from [facility] ED) at the request of the [...] #Acute alcohol withdrawal-suspected - Call patient's clinic ([facility], ) in AM to confirm 90 [...] Tubes/ Drains Wound Vac DVT prophylaxis Lovenox PT/OT/DATABASE TECHNICIAN ordered Wound care Per surgical team at this time Anticipated Disposition TBD Team Pager (MD Coverage 02/12): [phone] Family Update At bedside 11/22 PCP LISA [...] on Friday to evaluate as appropriate. Pager: [phone] CHRISTINA LEONARD OT 11/23/2021 Occupational Therapy Rehabilitation [...] ??? Patient has active durable power of divorce attorney (DPOA) designee for healthcare ??? Methadone [...] Time Provider Department Center 01/15/2022 12:[address] [facility] [address] [facility] [address] CT [facility] Rad Palomo Archer RN - 11/23/2021 [...] infusion. Please page the PICC room at [phone] or call [phone] between the hours of 7:00am and 5:30pm Friday-Friday for PICC line placement/scheduling. After hours the Vascular Access Service can be reached at anytime on pager [phone] PICC requests for the following [...] reach, frequent checks made. Disruptive to neighbor, roof mechanic made aware. Working on getting patient private [...] and complete OT evaluation when appropriate. Pager: [phone] Laurel Em OT 11/22/2021 Occupational Therapy Rehabilitation [...] who have questions please contact the health customer care team coach that requested your imaging first. Electronically signed by: Wicho Michael MD, [facility] ([phone]), at 11/19/2021 2:58 AM Inpatient Medications: Scheduled ??? vancomycin 1,250 mg Intravenous Q12H ??? Vancomycin Level - MAR Order Reminder NOT APPLICABLE Once ??? lisinopriL 40 mg Oral Daily ??? thiamine 100 mg Oral Daily ??? folic acid 1,000 mcg Oral Daily ??? PHENobarbitaL 0.48 mg/kg/dose ([place]) Oral BID Followed by ??? [START ON 11/23/2021] PHENobarbitaL 0.24 mg/kg/dose ([place]) Oral BID ??? piperacillin-tazobactam 3.375 g Intravenous [...] cognitive impairment presented 11/18/21 for admission to [facility] (transferred from [facility] ED) at the request of the [...] #Acute alcohol withdrawal-suspected - Call patient's clinic ([facility], ) in AM to confirm 90 [...] Tubes/ Drains Wound Vac DVT prophylaxis Lovenox PT/OT/DATABASE TECHNICIAN ordered Wound care Per surgical team at this time Anticipated Disposition TBD Team Pager (MD Coverage 02/12): [phone] Family Update Left VM for spouse 11/22 [...] ??? Patient has active durable power of divorce attorney (DPOA) designee for healthcare ??? Methadone [...] Time Provider Department Center 01/15/2022 12:[address] [facility] [address] [facility] RAD CT [facility] Rad T Antoni Hurt MD - 11/21/2021 5:54 PM [...] wound VAC change. Antoni Hurt MD Padmini Amezquita APRN - 11/21/2021 5:10 PM EDT Hospital [...] who have questions please contact the health customer care team coach that requested your imaging first. Electronically signed by: Wicho Michael MD, [facility] ([phone]), at 11/19/2021 2:58 AM Inpatient Medications: Scheduled ??? [START ON 11/22/2021] Vancomycin Level - MAR Order Reminder NOT APPLICABLE Once ??? lisinopriL 40 mg Oral Daily ??? thiamine 100 mg Oral Daily ??? folic acid 1,000 mcg Oral Daily ??? PHENobarbitaL 0.96 mg/kg/dose ([place]) Oral BID Followed by ??? [START ON 11/22/2021] PHENobarbitaL 0.48 mg/kg/dose ([place]) Oral BID Followed by ??? [START ON 11/23/2021] PHENobarbitaL 0.24 mg/kg/dose ([place]) Oral BID ??? piperacillin-tazobactam 3.375 g Intravenous [...] cognitive impairment presented 11/18/21 for admission to [facility] (transferred from [facility] ED) at the request of the [...] #Acute alcohol withdrawal-suspected - Call patient's clinic ([facility], ) in AM to confirm 90 [...] Tubes/ Drains Wound Vac DVT prophylaxis Lovenox PT/OT/DATABASE TECHNICIAN ordered Wound care Per surgical team at this time Anticipated Disposition TBD Team Pager ( Coverage 02/12): [phone] Family Update Spouse contacted and updated via [...] to follow up for evaluation . Pager: [phone] CHRISTINA LEONARD OT 11/21/2021 Occupational Therapy Rehabilitation [...] ??? Patient has active durable power of divorce attorney (DPOA) designee for healthcare ??? Methadone [...] Time Provider Department Center 01/15/2022 12:[address] [facility] [address] [facility] RAD CT [facility] Rad Stephanie Pate RN - 11/20/2021 [...] Bains APRN - 11/20/2021 2:42 PM EDT [facility] Medicine Daily Progress Note Admit Date: 11/18/2021 [...] Vitals for the past 168 hrs: Weight 11/18/210 98.2 kg (216 lb 9.6 oz) BMI: [...] who have questions please contact the health customer care team coach that requested your imaging first. Electronically signed by: Wicho Michael MD, [facility] ([phone]), at 11/19/2021 2:58 AM Inpatient Medications: Scheduled [...] cognitive impairment presented 11/18/21 for admission to [facility] (transferred from [facility] ED) at the request of the [...] #Acute alcohol withdrawal-suspected - Call patient's clinic ([facility], ) in AM to confirm 90 [...] Tubes/ Drains Wound Vac DVT prophylaxis Lovenox PT/OT/DATABASE TECHNICIAN ordered Wound care Per surgical team at this time Anticipated Disposition TBD Team Pager ( Coverage 02/12): [phone] Family Update Spouse contacted and updated via [...] ??? Patient has active durable power of divorce attorney (DPOA) designee for healthcare ??? Methadone [...] Time Provider Department Center 01/15/2022 12:[address] [facility] [address] [facility] [address] CT [facility] Rad Stephanie Pate RN - 11/19/2021 [...] Total Minutes, Occupational Therapy: 0 Reason: 11/19/21 9557 Evaluation & Treatment Document Type contact Total Minutes, Occupational Therapy 0 Comment, Session Not Performed Order received. Chart reviewed. Checked in with PT, who evaluated Pt this morning. Pt able to get to/from bathroom with assistance. Plan to return to OR tomorrow. OT to follow up Friday. Pager: [phone] CHRISTINA LEONARD OT 11/19/2021 Occupational Therapy Rehabilitation [...] BILITOT 0.4 BILIDIR Not Perf Recent Labs 11/19/2155511/18/21 172 CALCIUM 9.0 9.0 No results for input(s): [...] who have questions please contact the health customer care team coach that requested your imaging first. Electronically signed by: Wicho Michael MD, [facility] ([phone]), at 11/19/2021 2:58 AM Inpatient Medications: Scheduled [...] cognitive impairment presented 11/18/21 for admission to [facility] (transferred from [facility] ED) at the request of the [...] #post-op pain control - Call patient's clinic ([facility], ) in AM to confirm 90 [...] MIVF PIV Tubes/ Drains DVT prophylaxis enoxaparin PT/OT/DATABASE TECHNICIAN consulted Wound care Anticipated Disposition TBD Team Pager (MD Coverage 02/12): [phone] Family Update Family updated at bedside 11/19 PCP LISA Levi PA 11/19/2021 Estefani Juarez RN - 11/19/2021 11:58 AM EDT Images from the original note were not included. 11/19/21 115 [REMOVED] Peripheral IV Line - Single Lumen 11/18/21 180 cephalic vein (lateral side of arm), left 20 gauge Removal Date/Time: 11/19/211153 Placement Date/Time: 11/18/211806 Location: cephalic vein (lateralside of arm), left Device: [id number]-ryndfo catheter system Technique: Anatomical Landmarks Ultrasound Imaging: [...] removed;extremity elevated;provider notified Infiltration/Extravasation Scale Soledad Ramos [id number]/[id number] Infiltration appearance: Requested to evaluate possible [...] measuring tape and identifier in the photo) STEAM GIGGER CARING FOR THIS PATIENT WILL CONTINUE TO [...] cognitive impairment presenting for admission from the [facility] (transferred from [facility] ED) at the request of the [...] 12.71) performed by Geovanna Lewis MD at [facility] MAIN OR ??? PRO AMPUTATION TOE, MT-P JT Right 11/18/2021 AMPUTATION TOE, METATARSO-PHALANGEAL JOINT (WRVU 5.82) performed by Sammy Baker MD at [facility] [place] ??? PRO TOTAL KNEE ARTHROPLASTY Left 12/13/2015 @TOTAL KNEE ARTHROPLASTY performed by Gordon Mallory MD at [facility] MAIN OR ??? PRO UPPER GI ENDOSCOPY, DIAGNOSTIC Bilateral 08/17/2015 EGD, UPPER GI ENDOSCOPY performed by Trev Hong MD at [facility] ENDOSCOPY ??? REVISION TOTAL HIP ARTHROPLASTY bilateral for hip AVN ??? SPINE SURGERY Active Non-Hospital Problems Diagnosis ??? Pruritic rash ??? Cellulitis ??? Osteomyelitis ??? Neuropathic ulcer of toe of right foot with fat layer exposed ??? Neuropathic ulcer of foot, right, with fat layer exposed ??? Patient has active durable power of divorce attorney (DPOA) designee for healthcare ??? Methadone [...] L 4th and 5th toes amputated; see de alcoholizer for details Musculoskeletal: ROM: WFL Strength: WFL, [...] mobility recommendations discussed with nursing. Assessment: Soledad Serranomichael was seen today for physical therapy evaluation. Pt is a 66 year old male EtOH abuse with alcoholic neuropathy and chronic b/l foot wounds (previous osteomyelitis), prior [id number] amputations, COPD on 2 L O2 at home, opioid use disorder on methadone and mild cognitive impairment presenting for admission from the [facility] (transferred from [facility] ED) at the request of the [...] in this evaluation. Time IN / OUT: 8617-9675 Total Minutes, Physical Therapy: 37 Billing Code: Evaluation Radha Pierre PT Pager: [phone] Physical Therapy Inpatient Rehabilitation Department Harley Raymond [...] ??? Patient has active durable power of divorce attorney (DPOA) designee for healthcare ??? Methadone [...] Time Provider Department Center 01/15/2022 12:[address] [facility] [address] [facility] RAD CT [facility] Rad Araceli Lee RN - 11/18/2021 11:34 PM EDT Patient [facility] via bed from PACU s/p R great [...] nurseIfeanyi. Plans for transport per protocol to [facility]. documented in this encounter H&P Notes Jarad [...] closure Edi Childress MD Orthopaedic Surgery Pager [phone] I saw and evaluated the patient on [...] foot I&D. Harley Raymond MD Orthopaedic Surgery [facility] I saw and evaluated the patient on [...] properly marked. Harley Raymond MD Orthopaedic Surgery [facility] Valentina Montoya MD - 11/18/2021 5:49 PM [...] cognitive impairment presenting for admission from the [facility] (transferred from [facility] ED) at the request of the orthopedic surgery service for necrotizing soft tissue infection of the right foot/great toe. History obtained from patient and chart review . Soledad relates that he initially presented to [facility] this AM after rapid [...] denies any fevers orchills. He presented to [facility] where his labs were significant for a WBC 23k, Cr 1.1, Hgb 13, Glucose 117, Na 137, CRP unknown (not obtained). He was administered clindamycin and Vancomycin [facility] and recommended transfer to [facility] ED for further work-up and evaluation for [...] ??? Patient has active durable power of divorce attorney (DPOA) designee for healthcare [id number] ??? Verruca plantaris B07.0 ??? Pruritic rash L28.2 ??? Necrotizing fasciitis M72.6 Past Surgical History: Past Surgical History: Procedure Laterality Date ??? PRO AMPUTATION FOOT, TRANSMETATARSAL Left 03/10/2020 AMPUTATION, TRANSMETATARSAL (WRVU 12.71) performed by Geovanna Lewis MD at [facility] MAIN OR ??? PRO TOTAL KNEE ARTHROPLASTY Left 12/13/2015 @TOTAL KNEE ARTHROPLASTY performed by Gordon Mallory MD at [facility] MAIN OR ??? PRO UPPER GI ENDOSCOPY, DIAGNOSTIC Bilateral 08/17/2015 EGD, UPPER GI ENDOSCOPY performed by Trev Hong MD at [facility] ENDOSCOPY ??? REVISION TOTAL HIP ARTHROPLASTY [...] Social History Narrative [place]. 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 Pt has been exposed to [...] on file Patient lives with his in [place]. Former bark grinder. Current everyday smoker of 1 pack a [...] patients who have questions please contactthe health customer care team coach that requested your imaging first. Electronically signed by: Kushal Pascual MD, [facility] ([phone]), at 11/18/2021 1:16 PM ASSESSMENT and PLAN: Soledad Ramos is a 66 y.o. 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 ED) at the request of the [...] clindamycin and vancomycin; vancomycinand clindamycin started at [facility]. Will start piperacillin tazobactam now. - NPO - PT/OT #opioid use disorder #EtOH abuse #peripheral neuropathy #post-op pain control - call patient's clinic([facility]) in AM to confirm 90 mg [...] of two midnights or is on the [facility] inpatient only procedure list (status C) due to: acute necrotizing soft tissue infection of the right great toe/2nd toe requiring (multiple) debridements and IV antibiotics, acute on chronic osteomyelitis, cellulitis RLE Valentina Montoya MD [facility] Medicine Pager [phone] Alis Dowling MD - 11/18/2021 5:39 PM [...] to the planned procedure. Hand Hygiene: The montessori program director did perform hand hygiene prior to line insertion. Catheter type: PICC Lot number: [id number] Procedure Technique: Skin was prepped with chlorhexidine. [...] External: 0 cm Tip in SVC per [place] The line was not placed over a [...] on 11/18/21 Source Information Alis Dowling MD [facility] Ed Results for orders placed or [...] 3 VBGs No results for input(s): PHVEN, EXL2ZEW, PO2VEN, CMP4SYC, LACTATEVEN, BEVEN, HGBVEN, V6GPCLH, COHBVEN, METHBVEN, NAWBVEN, KWBVEN, ICAWBVEN, CLWBVEN, GLUCWBVEN [...] 9:26 PM ED Course as of 11/19/21152 Sun Nov 18, 2021 1740 Ortho Consult: Plan [...] 3:41 PM EDT Transfer nursing report from [facility] VINCENT Coy:coming with R foot infection, weeping edema both [...] OPAT Orders Location: Home, Referred to [facility] Coordination, Referred to Home Health Agency Home Health Services: Registered Nurse, Physical Therapy, Occupational Therapy, Wound care Agency Referrals & Follow-up Care: Contact information for follow-up [address] [place] [address] [facility] [place] [facility] [place] Vis[facility] Nurse and H[facility]ice for [facility] [address] [facility] [address] [address] Transportation: family or friend will provide *Spouse [...] of this letter. Tequila Sanchez RN, BSN Finishing Frame Runner - Medicine Office of Care Management Office: Pager: [phone] Consult Note - Reji Monte MD - 11/29/2021 2:22 PM EDT BIT Evaluation Referral source: Nursing referral Reason for referral: Alcohol Use Disorder Opioid Use Disorder. Medication-Assisted Treatment Plan Was patient offered MOUD: No. Reason MOUD not offered?: On MAT prior to admission. Methadone Relevant history: Mr. 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 Pt cleared per PT/OT for dc home per my conversation with NIEVES Padilla. Pt also has been accepted at infusion suite in [facility] for outpt IV ABx infusion. I also [...] clinical support of Methadone assisted therapy at [facility] in [place]. Pt likely will discharge today and continue titrating methadone through this clinic. Team has spokenwith [facility] provider who indicated likely plan for retitration [...] clinical support of Methadone assisted therapy at [facility] in [place]. 2. Last dose letter/documentation to [facility] including time of discharge and the time and amount (45mg) of last total daily dose of methadone to ensure that outpatient pharmacotherapy can be resumed without interruption. 3. Pt is at increased risk of relapse in this context (albeit long hx lucille sobriety) and may benefit from temporary increase in methadone dose from previous 90mg dose. Plan for now is titration 10mg/day per [facility] provider, monitoring QTc. - If pt remains tachycardic (ie >60bpm) bazette QTc correction may overestimate risk of TdP and likely risk of harm to patient if he relapses is much greater than low/theoretical risk of TdP. [address] [place] [address] Time spent with the patient (min):15 minutes [...] 45mg QD starting tmrw Defer to [facility] for further titration recs when they [...] maintained. Report given to RN on at 2345. Assessment as filed. Safety maintained. Will continue [...] ADLs]: Hands on Surveillance [continuous indirect monitoring]: Mascristiano on, tele on Patient-specific fall prevention interventions for sensory deficits provided, if applicable: [X] Yes CPG GOAL OUTCOME EVALUATION: Plan of Care - Khadijah Rabago RN - 11/27/2021 4:03 PM EDT Peripherally Inserted Central Catheter (PICC) Teaching Sheet Peripherally inserted central catheters (kewr-et-etct) (PICC) are used when you need IV [...] midline catheter? PICC lines are used for dedicated intermodal truck driver treatments. PICC lines may be used for [...] can be set up via the nurse Finishing Frame Runner to help you. What are possible complications [...] Efficacy, Safety, Use, and Administration of [employer] 2005 Care Management - Elli Obrien RN - 11/27/2021 1:38 PM EDT OFFICE OF CARE MANAGEMENT PROGRESS NOTE LOS: Hospital Day 9 days Chart reviewed, care reviewed with primary team and at interdisciplinary rounds. Patient continues to meet inpatient level of care related to: Waiting for final OPAT recommended CM sent referral to A [facility]N , NESTACIE and ( Brandt - resumption of care ) Orders Pended . Brandt will notneed a new order unless order [...] Referrals: [facility] [address] [address] PHONE: [phone] FAX: [phone] [place], [place] or [facility] Intake office: tel: [phone] [place], [place] Office [place], [place] Office Transportation: family or friend will provide Barriers to discharge: Discharge planning Plan going forward: Care Management will continue to follow and assist with discharge planning and coordination of care as indicated. Anticipated Date of Discharge: 11/28/2021 Office of Care Management Surgery Team Finishing Frame Runner [email or web address] Pager [phone] Consult Note - rBian Kaminski, CONTRACT GRAPHIC DESIGNER - 11/27/2021 12:31 PM EDT BIT Evaluation Referral source: Nursing referral Reason for referral: Alcohol Use Disorder Opioid Use Disorder. Medication-Assisted Treatment Plan Was patient offered MOUD: No. Reason MOUD not offered?: On MAT prior to admission. Methadone Relevant history: Mr. 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 He reports his current Methadone dose is 90 mg daily take home medication prescription, having graduated from daily dosing years ago. He is agreeable to consultation between his primary team and [facility] on potential Methadone dose titration and transfer of care. He reports his last heavy use of alcohol was many years ago and reports only occasional use currently 1-2 beers per month and credits past engagement in outpatient counseling for this. [address] [place] [address] Mr. Ramos was open to instruction [...] clinical support of Methadone assisted therapy at [facility] in [place]. He endorses a remote history of heavy alcohol use and reports 1-2 beers per month currently. He plans to practice 4-7-8 Breathing technique for stress reduction. Interventions delivered: Consulted with care team Mindfulness Based Stress Reduction Motivational interviewing Pharmacologic treatment Recommend: -Primary team consultation with [facility] for potential Methadone dose titration and transfer of care. Plan: 1. Patient plans to remain abstinent from illicit opioids with the ongoing clinical support of Methadone assisted therapy at [facility]. 2. Patient plans to practice 4-7-8 [...] 15 minutes Consult Note - Terrance Peres, [facility] - 11/27/2021 10:54 AM EDT Clinical Pharmacist Note - VancFD Soledad Ramos [id number] 1955 Soledad Ramos is a 66 y.o. [...] Alternately, during off-hours (9p-7a) you may call [phone] to contact a pharmacist. 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 for necrotizing soft tissue infection of the right great toe,where he presented for rapid progression of redness and swelling of the wound overnight. At [facility], patient was stable but with WBC 23k, and was started on Clindamycin and Vancomycin before transfer to [facility]. Noted to have sinus tract on plantar surface. On arrival to [facility], Soledad was afebrile and hemodynamically stable. He [...] distal femur. He was taken for g uillotine partial first ray resection on 11/18 with [...] allergies. Social History: Lives with his in [place], [place]. One dog. 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 for necrotizing soft tissue infection of [...] MD 11/23/2021 10:44 AM Green team pager [phone] Associated attestation - Gordon Phan MD - [...] OUTCOME EVALUATION: Consult Note - Lila Rowan [facility] - 11/22/2021 2:38 PM EDT ?? The [...] have. Alternately, during off-hours you may call [phone] to contact a pharmacist. Care Management - [...] Anticipated Date of Discharge: 11/26/2021 Jaclyn Fry [facility] [phone] Consult Note - Celina Arce RN - 11/22/2021 1:15 PM EDT PICC line placement canceled for this patient due to being unable to obtain consent from after multiple attempts. Consult Note - Jeanie Tenorio [facility] - 11/22/2021 10:44 AM EDT Clinical Pharmacist Note-Vanc Soledad Ramos [id number] 1955 Soledad Ramos is a 66 y.o. [...] have. Alternately, during off-hours you may call [phone] to contact a pharmacist. Jeanie Tenorio RPH Pager [phone] Plan of Care - Zbigniew Riddle RN [...] x1 for RASS score of over -1. [place] and soft wrist restraints removed. Pt up to BR 1a with walker, needing frequent reminders of NWB status to RLE. Pt NPO since midnight for washout and debridement of R toe amp in OR. Medications given per JUL, assessment as filed. Will continue to monitor and notify team of changes. 30: IV antibiotics (clindamycin and zosyn) due @5am [...] WoundVac maintained at -125 continuous suction. Endorses 5-12/19 pain RLE, given PRNsubQ dilaudid x3. Pt [...] Ramos RPH - 11/19/2021 2:42 PM EDT [facility] Medication List Update for Medication Reconciliation [...] COVID test: Lab Results Component Value Date [id number] Not Detected 03/09/2020 Past medical History: Past [...] Padmini would be surrogate decision maker per [place] surrogate decision making law. (Only good for 180 days) Any patient receiving care at [facility] must abide by [place] law. The hierarchy for surrogate decision making [...] (i) The agent with financial power of divorce attorney or a conservator appointed in accordance [...] standard (knee scooter) Home Address confirmed as: [address] [address] Social & Family Supports: All names listed below confirmed with patient as current and correct Extended Emergency Contact Information Primary Emergency Contact: Padmini Ramos [facility] Relation: Spouse Secondary Emergency Contact: Sparkle Khan [facility] Relation: Child Current Care Provided by: self [...] SUPPLEMENT Prescription Coverage: Yes Preferred Pharmacy: [facility] [place] [phone] [facility] Home Delivery - [facility] [address] [facility] [address] [facility] [address] [facility] [address] [place] [address] [facility] [address] [facility] [address] Status: Patient is a : No Primary Care Provider: Brian Fall APRN [phone] Patient/Caregiver Goals of Treatment: Return home Potential Needs for Transition of Care: none Agency Referrals: Not Applicable at this time pending hospital course and PT OT recommendations Transportation: no concerns Transportation Anticipated: family or friend will provide Concerns to be Addressed: no discharge needs identified Assessment: Patient is admitted to Med service for R toe amputation and I&D [...] with transition of care planning. [facility] [phone] Plan of Care - Araceli Lee RN - 11/19/2021 3:08 AM EDT OUTCOME EVALUATION NOTE: OUTCOME SUMMARY: Pt A&OX4 VSS on 3L NC Medications administered per JUL Wound vac to R foot at -125, [...] Baker MD - 11/18/2021 9:35 PM EDT [facility] Operative Note Patient Name: Soledad Ramos : [id number] MR#: [id number] Case Date: 11/18/2021 Surgeon: Surgeon(s) and Role: [...] comorbid 66-year-old male who [facility] for acute worsening for the past 3 [...] low continuous, 1 black sponge. - Appreciate [facility] medicine care Attestation: Case Date: 11/18/2021 I was present and I participated during the entire procedure (does not need to include opening and closing). Sammy Baker MD 11/19/2021 Brief Op Note - Sammy Baker MD - 11/18/2021 9:30 PM EDT Brief Operative Note Patient Name: Soledad Ramos : [id number] MR#: [id number] Case Date: 11/18/2021 Surgeon: Surgeon(s) and Role: [...] ORTHOPAEDIC SURGERY CONSULT NOTE ATTENDING: MD DIEGO Sloedad Ramos is a 66 y.o. male who [...] systemically unwell. He was initially seen at [facility] today and presented there. See my prior telephone encounter for telephone consultation in which I requested he be transferred here for further evaluation and management with orthopedic surgery consultation. At [facility] his white count was 20 3K, [...] ??? Patient has active durable power of divorce attorney (DPOA) designee for healthcare ??? Methadone [...] data in the 24 hours ending 11/18/21 9941 There is no height or weight on [...] bedside with me Please page Orthopaedic consults [phone]) with any questions or concerns. Alis Dowling MD P. [phone] 11/18/21 5:31 PM Future Appointments Date Time Provider Department Center 01/15/2022 12:[address] [facility] CT [address] [facility] [address] CT [facility] Rad Associated attestation - Sammy Baker [...] comfortable with this approach. Sammy Baker M.D. [place] Department of Orthopaedics ED Triage - Bridget Baron MD - 11/18/2021 2:55 PM EDT Coming from [facility] with concern for Right foot wound [...] Tavera APRN [facility] ORTHOPAEDIC SURG [place], [place] 0[address] (Wo rk) 01/15/2022 Appointment Radiology Stiven Cervantes MD [facility] Pulmonary Medici [place], [place] [address] (Wo rk) Scheduled Orders Name [...] Esquivel, Understanding Action Plan 9:07 AM EDT) [facility] Note: Formatting of this note might be [...] procedure are i n the results section. DEBRIDEMENT SKIN, Routine 11/25/2021 2:33 SUBCU, MUSCLE, [...] 494 ms MUSE SYSTEM (Bezet) Calculated P [place] 52 degrees MUSE SYSTEM Calculated R [place] 27 degrees MUSE SYSTEM Calculated T [place] 57 degrees MUSE SYSTEM INTERPRETATION Normal sinus rhythm with sinus arrhythmia MUSE SYSTEM borderline EKG When compared with ECG of 27-NOV-2021 11:44, Criteria for Inferior infarct are no longer Present I personally reviewed the tracing and edited the fellows int erpretation Confirmed by fellow MD Alexandra, Marco A ([id number]) on 022 3:05:39 PM Confirmed by Najma Ren ([id number]) on 11/29/2021 6:50:48 P M Specimen Anatomical Collection Method Collection Time Receive d Time (Source) Location / / Volume Laterality 11/29/2021 1:02 PM 6:50 EDT PM EDT Jennifer Martinez MD ECG ORDERABLES Performing Organization Address City/State/ZIP Code Phon e Number MUSE SYSTEM (ABNORMAL) Differential, Automated (11/29/2021 3:40 AM EDT) [facility] gist Method Time Signature Neutrophils % 62.4 % [facility] Neutr Abs (ANC) 7.80 (H) 1.70 - [facility] 6.10 [facility] x10(3)/[facility] LABORATORY Lymphocytes % 23.8 % [facility] Lymphocytes Abs 3.0 0.9 - 3.2 [facility] x10(3)/[facility] LABORATORY Monocytes % 6.0 % [facility] Monocyte Abs 0.8 0.3 - 0.9 [facility] x10(3)/[facility] LABORATORY Eosinophils % 5.7 % [facility] Eosinophils Abs 0.7 (H) 0.0 - 0.4 [facility] x10(3)/[facility] LABORATORY Basophils % 1.3 % [facility] Basophils Abs 0.2 (H) 0.0 - 0.1 [facility] x10(3)/[facility] LABORATORY Immature Gran % 0.80 % [facility] Comment: Immature granulocytes(IG's)percentage an d absolute count will include metamyelocytes, myelocytes, and promyelo cytes. Blood smears from CBCs yielding IG's will be scanned manually for concor dance. If this scan disagrees with the automated IG or if promyelocytes are not ed, a manual differential will be performed. Shannan Gran Abs 0.10 (H) 0.00 - 0.04 x10(3)/[facility] LABORATORY Specimen Anatomical Collection Method Collection Time Receive d Time (Source) Location / / Volume Laterality Blood 11/29/2021 3:40 AM 2 4:00 EDT AM EDT Resulting Agency Comment Spec In Lab NIEVES Peoples HEMATOLOGY ORDERABLES Performing Organization Address City/State/ZIP Code Phon e Number [place] [id number] (ABNORMAL) Hemogram (11/29/2021 3:40 AM EDT) Analysis Performed At Patho logist Time Signature WBC 12.5 (H) 4.0 - 9.5 [facility] x10(3)/[facility] LABORATORY RBC 4.34 (L) 4.58 - [facility] 5.54 [facility] x10(6)/[facility] LABORATORY Hemoglobin 13.9 13.7 - [facility] 16.[facility] g/dL [facility] Hematocrit 41.3 40.5 - [facility] 48.5 % [facility] MCV 95.2 (H) 82.9 - [facility] 93.1 fL [facility] MCH 32.0 27.5 - [facility] 32.1 pg [facility] MCHC 33.7 32.0 - [facility] 35.7 g/dL [facility] Platelets 494 (H) 145 - 357 [facility] x10(3)/[facility] LABORATORY RDWSD 49.2 (H) 36.0 - [facility] 45.0 [facility] LABORATORY RDWCV 14.2 (H) 11.4 - [facility] 13.8 % [facility] MPV 9.5 7.6 - 12.9 [facility] LABORATORY nRBC % Auto 0.0 % [facility] nRBC Abs Auto 0.000 0.000 - [facility] 0.000 [facility] x10(3)/[facility] LABORATORY Specimen Anatomical Collection Method Collection Time Receive d Time (Source) Location / / Volume Laterality Blood 11/29/2021 3:40 AM 4:00 EDT AM EDT Resulting Agency Comment Spec In Lab NIEVES Peoples HEMATOLOGY ORDERABLES Performing Organization Address City/State/[place] [address] (ABNORMAL) Basic Metabolic Panel (non-fasting) (11/29/2021 3:40 AM EDT) P athologist Signature Glucose Lvl 110 65 - 199 [facility] mg/dL [facility] Comment: Diabetes: >=200 mg/dL plus symp toms BUN 22 (H) 10 - 20 mg/dL [facility] Creatinine 1.47 0.80 - 1.50 mg/dL [facility] Sodium 138 135 - 145 mmol/L [facility] Potassium 3.7 3.5 - 5.0 mmol/L [facility] Comment: Please note: ??Patients with WBC >100,00 0 may have falsely elevated Potassium levels. ??For accurate Potassium quantif ication in these patients send serum separator tube (gold top) for subsequent determinations. ??Contact the Clinical Chemistry Laboratory if there are any qu estions. Chloride 101 98 - 107 mmol/L [facility] CO2 25 22 - 31 mmol/L [facility] Anion Gap 12 5 - 15 mmol/L [facility] Calcium 9.2 8.5 - 10.5 mg/dL [facility] Estimated GFR 52 (L) >=60 mL/min/1.73 m?? [facility] Comment: This patient's estimated GFR [...] Martinez MD CHEMISTRY ORDERABLES Performing Organization Address City/[facility]/ZIP Code Phon e Number [address] Potassium (11/28/2021 6:30 PM EDT) P athologist Signature Potassium 3.6 3.5 - 5.0 [facility] mmol/L [facility] Comment: Please note: ??Patients with WBC [...] Martinez MD CHEMISTRY ORDERABLES Performing Organization Address City/[facility]/ZIP Code Phon e Number [address] Magnesium (11/28/2021 3:15 AM EDT) P athologist Signature Magnesium 0.74 0.69 - 1.07 [facility] mmol/L [facility] Specimen Anatomical Collection Method Collection Time Receive d Time (Source) Location / / Volume Laterality Blood Venous Draw / 11/28/2021 3:15 AM 11/29/19 3:25 Unknown EDT AM EDT Resulting Agency Comment Spec In Lab Stephanie Parrish MD CHEMISTRY ORDERABLES Performing Organization Address City/State/[place] [address] (ABNORMAL) Differential, Automated (11/28/2021 3:15 AM EDT) Patholo gist Method Time Signature Neutrophils % 62.7 % [facility] Neutr Abs (ANC) 8.02 (H) 1.70 - [facility] 6.10 [facility] x10(3)/[facility] LABORATORY Lymphocytes % 24.2 % [facility] Lymphocytes Abs 3.1 0.9 - 3.2 [facility] x10(3)/[facility] LABORATORY Monocytes % 6.6 % [facility] Monocyte Abs 0.8 0.3 - 0.9 [facility] x10(3)/[facility] LABORATORY Eosinophils % 4.7 % [facility] Eosinophils Abs 0.6 (H) 0.0 - 0.4 [facility] x10(3)/[facility] LABORATORY Basophils % 0.8 % [facility] Basophils Abs 0.1 0.0 - 0.1 [facility] x10(3)/[facility] LABORATORY Immature Gran % 1.00 % [facility] Comment: Immature granulocytes(IG's)percentage an d absolute count will include metamyelocytes, myelocytes, and promyelo cytes. Blood smears from CBCs yielding IG's will be scanned manually for concor dance. If this scan disagrees with the automated IG or if promyelocytes are not ed, a manual differential will be performed. Shannan Gran Abs 0.13 (H) 0.00 - 0.04 x10(3)/[facility] LABORATORY Specimen Anatomical Collection Method Collection Time Receive d Time (Source) Location / / Volume Laterality Blood 11/28/2021 3:15 AM 2 3:23 EDT AM EDT Resulting Agency Comment Spec In Lab NIEVES Peoples HEMATOLOGY ORDERABLES Performing Organization Address City/State/[place] [address] (ABNORMAL) Hemogram (11/28/2021 3:15 AM EDT) Analysis Performed At Patho logist Time Signature WBC 12.8 (H) 4.0 - 9.5 [facility] x10(3)/[facility] LABORATORY RBC 4.38 (L) 4.58 - [facility] 5[facility]54 [facility] x10(6)/[facility] LABORATORY Hemoglobin 13.9 13.7 - [facility]/dL [facility] Hematocrit 41.6 40.5 - [facility] 48.5 % [facility] MCV 95.0 (H) 82.9 - [facility] 93.1 [facility] LABORATORY MCH 31.7 27.5 - [facility] 32.1 pg [facility] MCHC 33.4 32.0 - [facility] 35.7 g/dL [facility] Platelets 504 (H) 145 - 357 [facility] x10(3)/[facility] LABORATORY RDWSD 49.2 (H) 36.0 - [facility] 45.0 [facility] LABORATORY RDWCV 14.3 (H) 11.4 - [facility] [place] 13.8 % [facility] MPV 9.3 7.6 - 12.9 [facility] LABORATORY nRBC % Auto 0.0 % [facility] nRBC Abs Auto 0.000 0.000 - [facility] [place] 0.000 [facility] x10(3)/[facility] LABORATORY Specimen Anatomical Collection Method Collection Time Receive d Time (Source) Location / / Volume Laterality Blood 11/28/2021 3:15 AM 2 3:23 EDT AM EDT Resulting Agency Comment Spec In Lab NIEVES Peoples HEMATOLOGY ORDERABLES Performing Organization Address City/State/[place] [address] (ABNORMAL) Basic Metabolic Panel (non-fasting) (11/28/2021 3:15 AM EDT) athologist Signature Glucose Lvl 114 65 - 199 [facility] mg/dL [facility] Comment: Diabetes: >=200 mg/dL plus symp toms BUN 14 10 - 20 mg/dL [facility] Comment: result rechecked-sf Creatinine 1.49 0.80 - 1.50 mg/dL [facility] Sodium 141 135 - 145 mmol/L [facility] Potassium 2.9 (Critical) 3.5 - 5.0 mmol/L [facility] Comment: Called by: , Read back by: claudia velazquez, Date/Time:11/28/21 04:00. Please note: ??Patients with WBC >100,00 0 may have falsely elevated Potassium levels. ??For accurate Potassium quantif ication in these patients send serum separator tube (gold top) for subsequent determinations. ??Contact the Clinical Chemistry Laboratory if there are any qu estions. Chloride 102 98 - 107 mmol/L [facility] CO2 25 22 - 31 mmol/L [facility] Anion Gap 14 5 - 15 mmol/L [facility] Calcium 9.0 8.5 - 10.5 mg/dL [facility] Estimated GFR 51 (L) >=60 mL/min/1.73 m?? [facility] Comment: This patient's estimated GFR [...] Organization Address City/State/[place] [address] PICC Line: Contact Vascular Access Page [phone] Extremity to exclude: No restrictions; Is PICC [...] the planned procedu re. Hand Hygiene: The montessori program director did perform hand hygiene pr ior to line insertion. Catheter type: PICC Lot number: [id number] Procedure Technique: Skin was prepped with chlorhexidine. [...] who have questions please contact the health customer care team coach that requested your imaging first. ? Electronically signed by: Penny Ge MD , [facility] ([phone]), at 11/27/2021 4:00 PM Narrative 11/27/2021 4:00 [...] ho have questions please contact the health customer care team coach that requested your imaging first. Electronically signed by: Penny Ge MD , [facility] ([phone]), at 11/27/2021 4:00 PM Jennifer Martinez MD [...] 495 ms MUSE SYSTEM (Bezet) Calculated P [place] 38 degrees MUSE SYSTEM Calculated R [place] -7 degrees MUSE SYSTEM Calculated T [place] 37 degrees MUSE SYSTEM INTERPRETATION Normal sinus rhythm MUSE SYSTEM Septal infarct (cited on or before 20-NOV-2021) Inferior infarct , age undetermined Abnormal ECG When compared with ECG of 20-NOV-2021 12:47, No significant change was found I personally reviewed the tracing and edited the fellows int erpretation Confirmed by fellow MD Devorah, Debra ([id number]) on 11/28/2021 11: 56:35 AM Confirmed by MD Jacob, Cristian ([id number]) on 11/28/2021 1:18:37 PM Specimen Anatomical Collection Method Collection Time Receive d Time (Source) Location / / Volume Laterality 11/27/2021 11:44 11/28/2021 1:18 AM EDT PM EDT Jennifer Martinez MD ECG ORDERABLES Performing Organization Address City/[facility]/ZIP Code Phon e Number MUSE SYSTEM C. Difficile Screen (11/26/2021 1:47 PM EDT) [facility] gist Method Time Signature C Diff Screen See comment Negative [facility] Comment: Ag/Tox Neg C. diff?? [...] / Volume Laterality Stool 11/26/2021 1:47 PM 2:08 EDT PM EDT Resulting Agency Comment Spec In Lab Jennifer Martinez MD MICROBIOLOGY - GENERAL ORDER SILAS Performing Organization Address City/[facility]/[place] [address] CK (11/26/2021 6:56 AM EDT) P athologist Signature CK, Total 74 0 - 200 [facility] LABORATORY Specimen Anatomical Collection Method Collection Time Receive d Time (Source) Location / / Volume Laterality Blood Venous Draw / 11/26/2021 6:56 AM 11/27/19 7:32 Unknown EDT AM EDT Resulting Agency Comment Spec In Lab NIEVES Pepoles CHEMISTRY ORDERABLES Performing Organization Address City/[facility]/[place] [address] Magnesium (11/26/2021 6:56 AM EDT) P athologist Signature Magnesium 0.75 0.69 - 1.07 [facility] mmol/L [facility] Specimen Anatomical Collection Method Collection Time Receive d Time (Source) Location / / Volume Laterality Blood Venous Draw / 11/26/2021 6:56 AM 11/27/19 7:32 Unknown EDT AM EDT Resulting Agency Comment Spec In Lab NIEVES Peoples CHEMISTRY ORDERABLES Performing Organization Address City/State/ZIP Code Phon e Number [place] [id number] [facility] LABORATORY Drive (ABNORMAL) Differential, Automated (11/26/2021 6:56 AM EDT) Patholo gist Method Time Signature Neutrophils % 70.3 % [facility] Neutr Abs (ANC) 8.41 (H) 1.70 - [facility] 6.10 [facility] x10(3)/[facility] LABORATORY Lymphocytes % 15.1 % [facility] Lymphocytes Abs 1.8 0.9 - 3.2 [facility] x10(3)/[facility] LABORATORY Monocytes % 7.9 % [facility] Monocyte Abs 1.0 (H) 0.3 - 0.9 [facility] x10(3)/[facility] LABORATORY Eosinophils % 4.4 % [facility] Eosinophils Abs 0.5 (H) 0.0 - 0.4 [facility] x10(3)/[facility] LABORATORY Basophils % 1.0 % [facility] Basophils Abs 0.1 0.0 - 0.1 [facility] x10(3)/[facility] LABORATORY Immature Gran % 1.30 % [facility] Comment: Immature granulocytes(IG's)percentage an d absolute count will include metamyelocytes, myelocytes, and promyelo cytes. Blood smears from CBCs yielding IG's will be scanned manually for concor dance. If this scan disagrees with the automated IG or if promyelocytes are not ed, a manual differential will be performed. Shannan Gran Abs 0.15 (H) 0.00 - 0.04 x10(3)/[facility] LABORATORY Specimen Anatomical Collection Method Collection Time Receive d Time (Source) Location / / Volume Laterality Blood 11/26/2021 6:56 AM 2 7:10 EDT AM EDT Resulting Agency Comment Spec In Lab Harley Raymond MD HEMATOLOGY ORDERABLES Performing Organization Address City/State/[place] [address] (ABNORMAL) Hemogram (11/26/2021 6:56 AM EDT) Analysis Performed At Patho logist Time Signature WBC 12.0 (H) 4.0 - 9.5 [facility] x10(3)/[facility] LABORATORY RBC 4.26 (L) 4.58 - [facility].54 [facility] x10(6)/[facility] LABORATORY Hemoglobin 13.6 (L) 13.7 - [facility] 16.[facility] g/dL [facility] Hematocrit 40.5 40.5 - [facility] 48.5 % [facility] MCV 95.1 (H) 82.9 - [facility] 93.1 [facility] LABORATORY MCH 31.9 27.5 - [facility] 32.1 pg [facility] MCHC 33.6 32.0 - [facility] 35.7 g/dL [facility] Platelets 418 (H) 145 - 357 [facility] x10(3)/[facility] LABORATORY RDWSD 49.8 (H) 36.0 - [facility] 45.0 [facility] LABORATORY RDWCV 14.4 (H) 11.4 - [facility] 13.8 % [facility] MPV 9.3 7.6 - 12.9 [facility] LABORATORY nRBC % Auto 0.0 % [facility] nRBC Abs Auto 0.000 0.000 - [facility] 0.000 [facility] x10(3)/[facility] LABORATORY Specimen Anatomical Collection Method Collection Time Receive d Time (Source) Location / / Volume Laterality Blood 11/26/2021 6:56 AM 7:10 EDT AM EDT Resulting Agency Comment Spec In Lab Harley Raymond MD HEMATOLOGY ORDERABLES Performing Organization Address City/State/[place] [address] (ABNORMAL) Basic Metabolic Panel (non-fasting) (11/26/2021 6:56 AM EDT) P athologist Signature Glucose Lvl 105 65 - 199 [facility] mg/dL [facility] Comment: Diabetes: >=200 mg/dL plus symp toms BUN 8 (L) 10 - 20 mg/dL [facility] Creatinine 1.20 0.80 - 1.50 mg/dL [facility] Sodium 143 135 - 145 mmol/L [facility] Potassium 3.6 3.5 - 5.0 mmol/L [facility] Comment: Please note: ??Patients with WBC >100,00 0 may have falsely elevated Potassium levels. ??For accurate Potassium quantif ication in these patients send serum separator tube (gold top) for subsequent determinations. ??Contact the Clinical Chemistry Laboratory if there are any qu estions. Chloride 109 (H) 98 - 107 mmol/L [facility] CO2 22 22 - 31 mmol/L [facility] Anion Gap 12 5 - 15 mmol/L [facility] Calcium 8.8 8.5 - 10.5 mg/dL [facility] Estimated GFR 66 >=60 mL/min/1.73 m?? [facility] Comment: This patient's estimated GFR [...] Martinez MD CHEMISTRY ORDERABLES Performing Organization Address City/[facility]/[place] [address] Anaerobic Culture (11/25/2021 9:00 AM EDT) Zuli Method Time Signature Anaerobic No anaerobic [place] Culture organisms [facility] LABORATORY Specimen Anatomical Collection Method Collection Time Receive d Time (Source) Location / / Volume Laterality Leg 11/25/2021 9:00 AM 2 EDT 10:33 AM EDT Comment: Right foot proximal resection s ite first metatarsal. Resulting Agency Comment Spec In Lab Jarad Flores MD MICROBIOLOGY - GENERAL ORDER SILAS Performing Organization Address [facility] [place] [address] (ABNORMAL) Tissue culture (11/25/2021 9:00 AM EDT) Component Value Ref Test Analysis Performed At Zuli Range Method Time Signature Tissue Rare Coagulase negative Staphylococcus species [facility] Culture One colony of Coagulase negative Staphylococcus species #2 [place] Rare Corynebacterium species [facility] Susceptibilities previously reported [facility]OSP[facility] (A) LAB[facility]ATORY Gram Stain No Neutrophils seen. [facility] No microorganisms seen. [facility] (A) [facility] Organism Coagulase negative [place] Staphylococcus [place] species (A) [facility] Organism Corynebacterium [place] species (A) [facility]ORY Specimen Anatomical Collection Method Collection Time Receive d Time (Source) Location / / Volume Laterality Leg 11/25/2021 9:00 AM 2 EDT 10:33 AM EDT Comment: Right foot proximal resection s ite first metatarsal. Resulting Agency Comment Spec In Lab Jarad Flores MD MICROBIOLOGY - GENERAL ORDER SILAS Performing Organization Address City/[facility]/ZIP [facility] [place] [address] XR Foot Min 3 [...] who have questions please contact the health customer care team coach that requested your imaging first. ? Electronically signed by: Penny Ge MD , [facility] ([phone]), at 11/23/2021 7:11 PM Narrative 11/23/2021 7:11 [...] ho have questions please contact the health customer care team coach that requested your imaging first. Electronically signed by: Penny Ge MD , [facility] ([phone]), at 11/23/2021 7:11 PM Afshin Rogers MD IMG DX ORDERABLES (ABNORMAL) Differential, Automated (11/23/2021 4:28 PM EDT) [facility] Method Time Signature Neutrophils % 74.2 % [facility] Neutr Abs (ANC) 9.89 (H) 1.70 - [facility] 6.10 [facility] x10(3)/[facility] LABORATORY Lymphocytes % 13.0 % [facility] Lymphocytes Abs 1.7 0.9 - 3.2 [facility] x10(3)/[facility] LABORATORY Monocytes % 9.2 % [facility] Monocyte Abs 1.2 (H) 0.3 - 0.9 [facility] x10(3)/[facility] LABORATORY Eosinophils % 1.9 % [facility] Eosinophils Abs 0.2 0.0 - 0.4 [facility] x10(3)/[facility] LABORATORY Basophils % 0.7 % [facility] Basophils Abs 0.1 0.0 - 0.1 [facility] x10(3)/[facility] LABORATORY Immature Gran % 1.00 % [facility] Comment: Immature granulocytes(IG's)percentage an d absolute count will include metamyelocytes, myelocytes, and promyelo cytes. Blood smears from CBCs yielding IG's will be scanned manually for concor dance. If this scan disagrees with the automated IG or if promyelocytes are not ed, a manual differential will be performed. Shannan Gran Abs 0.13 (H) 0.00 - 0.04 x10(3)/[facility] LABORATORY Specimen Anatomical Collection Method Collection Time Receive d Time (Source) Location / / Volume Laterality Blood 11/23/2021 4:28 PM 2 4:55 EDT PM EDT Resulting Agency Comment Spec In Lab Harley Raymond MD HEMATOLOGY ORDERABLES Performing Organization Address City/State/[place] [address] (ABNORMAL) Hemogram (11/23/2021 4:28 PM EDT) Analysis Performed At Patho logist Time Signature WBC 13.3 (H) 4.0 - 9.5 [facility] x10(3)/[facility] LABORATORY RBC 4.79 4.58 - [place] 5.54 [facility] x10(6)/[facility] LABORATORY Hemoglobin 15.2 13.7 - [facility] [place] 16.5 g/dL [facility] Hematocrit 45.6 40.5 - [facility] 48.5 % [facility] MCV 95.2 (H) 82.9 - [facility] 93.1 [facility] LABORATORY MCH 31.7 27.5 - [place] 32.1 pg [facility] MCHC 33.3 32.0 - [facility] 35.7 g/dL [facility] Platelets 389 (H) 145 - 357 [facility] x10(3)/[facility] LABORATORY RDWSD 48.6 (H) 36.0 - [facility] 45.0 [facility] LABORATORY RDWCV 14.0 (H) 11.4 - [facility] 13.8 % [facility] MPV 9.2 7.6 - 12.9 [facility] nRBC % Auto 0.0 % [facility] nRBC Abs Auto 0.000 0.000 - [place] 0.000 [facility] x10(3)/[facility] LABORATORY Specimen Anatomical Collection Method Collection Time Receive d Time (Source) Location / / Volume Laterality Blood 11/23/2021 4:28 PM 2 4:55 EDT PM EDT Resulting Agency Comment Spec In Lab Harley Raymond MD HEMATOLOGY ORDERABLES Performing Organization Address City/State/ZIP Code Phon e Number [place] [id number] [facility] LABORATORY Drive Phosphorus (11/23/2021 4:28 PM EDT) athologist Signature Phosphorus 4.0 2.5 - 4.5 [facility] mg[facility]dL [facility] Specimen Anatomical Collection Method Collection Time Receive d Time (Source) Location / / Volume Laterality Blood 11/23/2021 4:28 PM 4:55 EDT PM EDT Resulting Agency Comment Spec In Lab Jennifer Martinez MD CHEMISTRY ORDERABLES Performing Organization Address City/State/ZIP Code Phon e Number [address] (ABNORMAL) Basic Metabolic Panel (non-fasting) (11/23/2021 4:28 PM EDT) athologist Signature Glucose Lvl 96 65 - 199 [facility] mg/dL [facility] Comment: Diabetes: >=200 mg/dL plus symp toms BUN 6 (L) 10 - 20 mg/dL [facility] Creatinine 1.28 0.80 - 1.50 mg/dL [facility] Sodium 144 135 - 145 mmol/L [facility] Potassium 3.2 (L) 3.5 - 5.0 mmol/L [facility] Comment: Please note: ??Patients with WBC >100,00 0 may have falsely elevated Potassium levels. ??For accurate Potassium quantif ication in these patients send serum separator tube (gold top) for subsequent determinations. ??Contact the Clinical Chemistry Laboratory if there are any qu estions. Chloride 105 98 - 107 mmol/L [facility] CO2 23 22 - 31 mmol/L [facility] Anion Gap 16 (H) 5 - 15 mmol/L [facility] Calcium 9.2 8.5 - 10.5 mg/dL [facility] Estimated GFR 61 >=60 mL/min/1.73 m?? [facility] Comment: This patient's estimated GFR [...] Rogers MD CHEMISTRY ORDERABLES Performing Organization Address City/[facility]/[place] [address] Anaerobic Culture (11/23/2021 1:06 PM EDT) Zuli Method Time Signature Anaerobic No anaerobic [place] Culture organisms [facility] LABORATORY Specimen Anatomical Collection Method Collection Time Receive d Time (Source) Location / / Volume Laterality Bone TOE STRUCTURE / 11/23/2021 1:06 PM 2021 2:36 Unknown EDT PM EDT Comment: First right metatarsal resectio n #3 Resulting Agency Comment Spec In Lab Jarad Flores MD MICROBIOLOGY - GENERAL ORDER SILAS Performing Organization Address City/[facility]/ZIP [facility] [place] [address] (ABNORMAL) Bone Culture (11/23/2021 1:06 PM EDT) Component Value Ref Test Analysis Performed At Zuli Range Method Time Signature Bone Culture Rare Coagulase negative Staphylococcus species [place] Susceptibilities previously reported [place] () [facility] Gram Stain No Neutrophils seen. [place] No microorganisms seen. [facility] (A) [facility] Organism Coagulase negative [place] Staphylococcus [place] species (A) [facility] Specimen Anatomical Collection Method Collection Time Receive d Time (Source) Location / / Volume Laterality Bone TOE STRUCTURE / 11/23/2021 1:06 PM 2021 2:36 Unknown EDT PM EDT Comment: First right metatarsal resectio n #3 Resulting Agency Comment Spec In Lab Jarad Flores MD MICROBIOLOGY - GENERAL ORDER SILAS Performing Organization Address City/[facility]/[place] [address] Anaerobic Culture (11/23/2021 1:06 PM EDT) PathRubikloud Method Time Signature Anaerobic No anaerobic [place] Culture organisms [facility] LABORATORY Specimen Anatomical Collection Method Collection Time Receive d Time (Source) Location / / Volume Laterality Bone TOE STRUCTURE / 11/23/2021 1:06 PM 2021 2:39 Unknown EDT PM EDT Comment: First right metatarsal resectio n #2 Resulting Agency Comment Spec In Lab Jarad Flores MD MICROBIOLOGY - GENERAL ORDER SILAS Performing Organization Address City/[facility] [place] [address] (ABNORMAL) Bone Culture (11/23/2021 1:06 PM EDT) Component Value Ref Test Analysis Performed At Zuli Range Method Time Signature Bone Culture Rare Coagulase negative Staphylococcus species [place] Susceptibilities previously reported [facility] Gram Stain No Neutrophils seen. [place] No microorganisms seen. [facility] () [facility] Organism Coagulase negative [place] Staphylococcus [place] species (A) [facility] Specimen Anatomical Collection Method Collection Time Receive d Time (Source) Location / / Volume Laterality Bone TOE STRUCTURE / 11/23/2021 1:06 PM 2021 2:38 Unknown EDT PM EDT Comment: First right metatarsal resectio n #2 Resulting Agency Comment Spec In Lab Jarad Flores MD MICROBIOLOGY - GENERAL ORDER SILAS Performing Organization Address City/[facility]/[place] [address] Anaerobic Culture (11/23/2021 1:06 PM EDT) [employer]loud Method Time Signature Anaerobic No anaerobic [place] Culture organisms [facility] LABORATORY Specimen Anatomical Collection Method Collection Time Receive d Time (Source) Location / / Volume Laterality Bone TOE STRUCTURE / 11/23/2021 1:06 PM 2021 2:37 Unknown EDT PM EDT Comment: First right metatarsal resectio n #1 Resulting Agency Comment Spec In Lab Jarad Flores MD MICROBIOLOGY - GENERAL ORDER SILAS Performing Organization Address City/State/ZIP [place] [address] (ABNORMAL) Bone Culture (11/23/2021 1:06 PM EDT) Component Value Ref Test Analysis Performed At [facility] gist Range Method Time Signature Bone Culture Few Coagulase negative Staphylococcus species : two mo rphologies [place] Rare Corynebacterium species H [facility] Gram Stain No Neutrophils seen. [place] No microorganisms seen. [facility] [facility] () [facility] Organism Coagulase negative [place] Staphylococcus [place] species () [facility] Organism Coagulase negative [place] Staphylococcus [place] species () [facility] Organism Corynebacterium [place] species () [facility] Specimen Anatomical Collection Method Collection [...] Comment: Gentamicin is not a ppropriate for [place]-therapy. Coagulase negative staphylococcus Levofloxacin MICROSCAN METH OD [...] Comment: Gentamicin is not a ppropriate for [place]-therapy. Coagulase negative Levofloxacin MICROSCAN METHOD Sensitive staphylococcus [...] - GENERAL ORDER SILAS Performing Organization Address City/[facility]/ZIP Code Phon e Number [address] Phosphorus (11/22/2021 6:07 PM EDT) athologist Signature Phosphorus 2.9 2.5 - 4.5 [facility] mg/dL [facility] Specimen Anatomical Collection Method Collection Time Receive d Time (Source) Location / / Volume Laterality Blood 11/22/2021 6:07 PM 2 6:14 EDT PM EDT Resulting Agency Comment Spec In Lab Afshin Rogers MD CHEMISTRY ORDERABLES Performing Organization Address City/[facility]/ZIP Code Phon e Number [address] (ABNORMAL) Vancomycin, trough (11/22/2021 8:29 AM EDT) athologist Signature Vanc Trough 21.4 mg/L [facility] (Critical) [facility] Comment: Called by: SUZI, Read back by: Lila Piña mm, Date/Time:11/22/21 [...] Organization Address City/State/[place] [address] Phosphorus (11/22/2021 8:29 AM EDT) P athologist Signature Phosphorus 3.6 2.5 - 4.5 [facility] Specimen Anatomical Collection Method Collection Time Receive d Time (Source) Location / / Volume Laterality Blood 11/22/2021 8:29 AM 2 9:09 EDT AM EDT Resulting Agency Comment Spec In Lab Afshin Rogers MD CHEMISTRY ORDERABLES Performing Organization Address City/[facility]/[place] [address] Phosphorus (11/21/2021 6:46 PM EDT) P athologist Signature Phosphorus 2.9 2.5 - 4.5 [facility] Specimen Anatomical Collection Method Collection Time Receive d Time (Source) Location / / Volume Laterality Blood 11/21/2021 6:46 PM 2 6:53 EDT PM EDT Resulting Agency Comment Spec In Lab Afshin Rogers MD CHEMISTRY ORDERABLES Performing Organization Address City/[facility]/ZIP [facility] Phon e Number [address] (ABNORMAL) Differential, Automated (11/21/2021 8:38 AM EDT) P athologist Signature Neutrophils % 70.4 % [facility] Neutr Abs (ANC) 5.79 1.70 - [facility] 6.10 [facility] x10(3)/[facility] LABORATORY Lymphocytes % 12.6 % [facility] Lymphocytes Abs 1.0 0.9 - 3.2 [facility] x10(3)/[facility] LABORATORY Monocytes % 11.2 % [facility] Monocyte Abs 0.9 0.3 - 0.9 [facility] x10(3)/[facility] LABORATORY Eosinophils % 4.6 % [facility] Eosinophils Abs 0.4 0.0 - 0.4 [facility] x10(3)/[facility] LABORATORY Basophils % 0.6 % [facility] Basophils Abs 0.0 0.0 - 0.1 [facility] x10(3)/[facility] LABORATORY Immature Gran % 0.60 % [facility] Comment: Immature granulocytes(IG's)percentage an d absolute count will include metamyelocytes, myelocytes, and promyelo cytes. Blood smears from CBCs yielding IG's will be scanned manually for concor dance. If this scan disagrees with the automated IG or if promyelocytes are not ed, a manual differential will be performed. Shannan Gran Abs 0.05 (H) 0.00 - 0.04 x10(3)/[facility] LABORATORY Specimen Anatomical Collection Method Collection Time Receive d Time (Source) Location / / Volume Laterality Blood 11/21/2021 8:38 AM 8:51 EDT AM EDT Resulting Agency Comment Spec In Lab Valentina Montoya MD HEMATOLOGY ORDERABLES Performing Organization Address City/State/[place] [address] (ABNORMAL) Hemogram (11/21/2021 8:38 AM EDT) Analysis Performed At Patho logist Time Signature WBC 8.2 4.0 - 9.5 [facility] x10(3)/[facility] LABORATORY RBC 4.13 (L) 4.58 - [facility] 5.54 [facility] x10(6)/[facility] LABORATORY Hemoglobin 13.2 (L) 13.7 - [facility] 16.5 g/dL [facility] Hematocrit 38.9 (L) 40.5 - [facility] 48.5 % [facility] MCV 94.2 (H) 82.9 - [facility] 93.1 [facility] LABORATORY MCH 32.0 27.5 - [place] [facility]OCK 32.1 pg [facility] MCHC 33.9 32.0 - [place] [facility] 35.7 g/dL [facility] Platelets 285 145 - 357 [place] EDGAR x10(3)/[facility] LABORATORY RDWSD 48.8 (H) 36.0 - [place] HERNÁNDEZ 45.0 [facility] LABORATORY RDWCV 14.2 (H) 11.4 - [place] 13.8 % [facility] MPV 8.9 7.6 - 12.9 [place] EDGAR [facility] LABORATORY nRBC % Auto 0.0 % [facility] nRBC Abs Auto 0.000 0.000 - [place] EDGAR 0.000 [facility] x10(3)/[facility] LABORATORY Specimen Anatomical Collection Method Collection Time Receive d Time (Source) Location / / Volume Laterality Blood 11/21/2021 8:38 AM 8:51 EDT AM EDT Resulting Agency Comment Spec In Lab Valentina Montoya MD HEMATOLOGY ORDERABLES Performing Organization Address City/State/[place] [address] Hepatic Function Panel (11/21/2021 8:38 AM EDT) P athologist Signature Total Protein 6.5 6.1 - 8.0 [place] EDGAR g/dL [facility] Albumin 3.2 3.2 - 5.2 [place] EDGAR g/dL [facility] AST 13 0 - 39 [place] EDGAR unit/L [facility] ALT 10 0 - 55 [place] EDGAR unit/L [facility] Alk Phos 76 40 - 130 [place] EDGAR unit/L [facility] Total 0.4 0.2 - 1.3 [place] EDGAR Bilirubin mg/dL [facility] Bili, Direct 0.1 0.0 - 0.3 [place] EDGAR mg/dL [facility] Specimen Anatomical Collection Method Collection Time Receive d Time (Source) Location / / Volume Laterality Blood 11/21/2021 8:38 AM 8:52 EDT AM EDT Resulting Agency Comment Spec In Lab Sommer Bains APRN CHEMISTRY ORDERABLES Performing Organization Address City/State/ZIP Code Phon e Number [address] Phosphorus (11/21/2021 8:38 AM EDT) athologist Signature Phosphorus 3.5 2.5 - 4.5 [facility] mg/dL [facility] Specimen Anatomical Collection Method Collection Time Receive d Time (Source) Location / / Volume Laterality Blood 11/21/2021 8:38 AM 8:52 EDT AM EDT Resulting Agency Comment Spec In Lab Afshin Rogers MD CHEMISTRY ORDERABLES Performing Organization Address City/[facility]/ZIP Code Phon e Number [address] (ABNORMAL) Basic Metabolic Panel (non-fasting) (11/21/2021 8:38 AM EDT) athologist Signature Glucose Lvl 89 65 - 199 [facility] mg/dL [facility] Comment: Diabetes: >=200 mg/dL plus symp toms BUN 6 (L) 10 - 20 mg/dL [facility] Creatinine 0.93 0.80 - 1.50 mg/dL [facility] Sodium 141 135 - 145 mmol/L [facility] Potassium 3.3 (L) 3.5 - 5.0 mmol/L [facility] Comment: Please note: ??Patients with WBC >100,00 0 may have falsely elevated Potassium levels. ??For accurate Potassium quantif ication in these patients send serum separator tube (gold top) for subsequent determinations. ??Contact the Clinical Chemistry Laboratory if there are any qu estions. Chloride 104 98 - 107 mmol/L [facility] CO2 25 22 - 31 mmol/L [facility] Anion Gap 12 5 - 15 mmol/L [facility] Calcium 8.8 8.5 - 10.5 mg/dL [facility] Estimated GFR 89 >=60 mL/min/1.73 m?? [facility] Comment: This patient's estimated GFR [...] Organization Address City/State/[place] [address] Phosphorus (11/20/2021 6:22 PM EDT) P athologist Signature Phosphorus 2.8 2.5 - 4.5 [facility] mg/dL [facility] Specimen Anatomical Collection Method Collection Time Receive d Time (Source) Location / / Volume Laterality Blood 11/20/2021 6:22 PM 2 6:31 EDT PM EDT Resulting Agency Comment Spec In Lab Afshin Rogers MD CHEMISTRY ORDERABLES Performing Organization Address City/[facility]/[place] [address] EKG 12 Lead (11/20/2021 12:47 PM EDT) Component Value Ref Range Test Analysis Performed Pathologis t Method Time At Signature Ventricular rate 98 BPM MUSE SYSTEM Atrial Rate 98 BPM MUSE SYSTEM P-R Interval 160 ms MUSE SYSTEM QRS Duration 82 ms MUSE SYSTEM Q-T Interval 406 ms MUSE SYSTEM QTC Calculated 518 ms MUSE SYSTEM (Bezet) Calculated P [place] 60 degrees MUSE SYSTEM Calculated R [place] 7 degrees MUSE SYSTEM Calculated T [place] 24 degrees MUSE SYSTEM INTERPRETATION Normal sinus [...] Bains APRN ECG ORDERABLES Performing Organization Address City/[facility]/ZIP Code Phon e Number MUSE SYSTEM Vancomycin, trough (11/20/2021 8:48 AM EDT) P athologist Signature Vanc Trough 18.8 mg/L [facility] Comment: Therapeutic range for complicated infect ions such as bacteremia, endocarditis, osteomyelitis, meningitis, and hospital- acquired pneumonia caused by S. aureus: 15-20 mg/L Therapeutic range for other indications: 10-15 mg/L Toxic: >20 mg/L Reference: Vancomycin Therapeutic Monitoring: Shanti w and Recommendations from the ASHP, IDSA and SIDP Task Force. ??Am J Health- Syst Pharm. 2009; 66:82-98 Specimen Anatomical Collection Method Collection Time Receive d Time (Source) Location / / Volume Laterality Blood 11/20/2021 8:48 AM 2 9:15 EDT AM EDT Resulting Agency Comment Spec In Lab Valentina Montoya MD CHEMISTRY ORDERABLES Performing Organization Address City/[facility]/[place] [address] Phosphorus (11/20/2021 8:48 AM EDT) P athologist Signature Phosphorus 2.7 2.5 - 4.5 [facility] mg/dL [facility] Specimen Anatomical Collection Method Collection Time Receive d Time (Source) Location / / Volume Laterality Blood 11/20/2021 8:48 AM 2 9:15 EDT AM EDT Resulting Agency Comment Spec In Lab Afshin Rogers MD CHEMISTRY ORDERABLES Performing Organization Address City/[facility]/[place] [address] (ABNORMAL) Differential, Automated (11/20/2021 4:59 AM EDT) [facility] Method Time Signature Neutrophils % 78.8 % [facility] Neutr Abs (ANC) 8.46 (H) 1.70 - [facility] 6.10 [facility] x10(3)/[facility] LABORATORY Lymphocytes % 8.6 % [facility] Lymphocytes Abs 0.9 0.9 - 3.2 [facility] x10(3)/[facility] LABORATORY Monocytes % 7.6 % [facility] Monocyte Abs 0.8 0.3 - 0.9 [facility] x10(3)/[facility] LABORATORY Eosinophils % 3.9 % [facility] Eosinophils Abs 0.4 0.0 - 0.4 [facility] x10(3)/[facility] LABORATORY Basophils % 0.6 % [facility] Basophils Abs 0.1 0.0 - 0.1 [facility] x10(3)/[facility] LABORATORY Immature Gran % 0.50 % [facility] Comment: Immature granulocytes(IG's)percentage an d absolute count will include metamyelocytes, myelocytes, and promyelo cytes. Blood smears from CBCs yielding IG's will be scanned manually for concor dance. If this scan disagrees with the automated IG or if promyelocytes are not ed, a manual differential will be performed. Shannan Gran Abs 0.05 (H) 0.00 - 0.04 x10(3)/[facility] LABORATORY Specimen Anatomical Collection Method Collection Time Receive d Time (Source) Location / / Volume Laterality Blood 11/20/2021 4:59 AM 5:23 EDT AM EDT Resulting Agency Comment Spec In Lab Valentina Montoya MD HEMATOLOGY ORDERABLES Performing Organization Address City/State/[place] [address] (ABNORMAL) Hemogram (11/20/2021 4:59 AM EDT) Analysis Performed At Patho logist Time Signature WBC 10.7 (H) 4.0 - 9.5 [facility] x10(3)/[facility] LABORATORY RBC 4.10 (L) 4.58 - [place] CHASEEDGAR 5.54 [facility] x10(6)/[facility] LABORATORY Hemoglobin 13.5 (L) 13.7 - [facility] 16.5 g/dL [facility] Hematocrit 40.6 40.5 - [place] EDGAR 48.5 % [facility] MCV 99.0 (H) 82.9 - [facility] 93.1 [facility] LABORATORY MCH 32.9 (H) 27.5 - [facility] 32.1 pg [facility] MCHC 33.3 32.0 - [place] EDGAR 35.7 g/dL [facility] Platelets 216 145 - 357 [facility] x10(3)/[facility] LABORATORY RDWSD 50.1 (H) 36.0 - [place] EDGAR 45.0 [facility] LABORATORY RDWCV 13.8 11.4 - [facility] 13.8 % [facility] MPV 10.2 7.6 - 12.9 [facility] LABORATORY nRBC % Auto 0.0 % [facility] nRBC Abs Auto 0.000 0.000 - [facility] EDGAR 0.000 [facility] x10(3)/[facility] LABORATORY Specimen Anatomical Collection Method Collection Time Receive d Time (Source) Location / / Volume Laterality Blood 11/20/2021 4:59 AM 5:23 EDT AM EDT Resulting Agency Comment Spec In Lab Valentina Montoya MD HEMATOLOGY ORDERABLES Performing Organization Address City/State/[place] [address] (ABNORMAL) Basic Metabolic Panel (non-fasting) (11/20/2021 4:59 AM EDT) P athologist Signature Glucose Lvl 69 65 - 199 [facility] mg/dL [facility] Comment: Diabetes: >=200 mg/dL plus symp toms BUN 8 (L) 10 - 20 mg/dL [facility] Creatinine 0.80 0.80 - 1.50 mg/dL [facility] Sodium 134 (L) 135 - 145 mmol/L [facility] Potassium Not Perf 3.5 - 5.0 [facility] Comment: Unable to quantitate [...] Chloride 96 (L) 98 - 107 mmol/L [facility] CO2 27 22 - 31 mmol/L [facility] Anion Gap 11 5 - 15 mmol/L [facility] Calcium 9.1 8.5 - 10.5 mg/dL [facility] Estimated GFR 96 >=60 mL/min/1.73 m?? [facility] Comment: This patient's estimated GFR [...] Organization Address City/State/[place] [address] (ABNORMAL) Differential, Automated (11/19/2021 5:56 AM EDT) [facility] Method Time Signature Neutrophils % 78.0 % [facility] Neutr Abs (ANC) 10.20 (H) 1.70 - [facility] 6.10 [facility] x10(3)/[facility] LABORATORY Lymphocytes % 10.6 % [facility] Lymphocytes Abs 1.4 0.9 - 3.2 [facility] x10(3)/[facility] LABORATORY Monocytes % 8.0 % [facility] Monocyte Abs 1.0 (H) 0.3 - 0.9 [facility] x10(3)/[facility] LABORATORY Eosinophils % 2.4 % [facility] Eosinophils Abs 0.3 0.0 - 0.4 [facility] x10(3)/[facility] LABORATORY Basophils % 0.5 % [facility] Basophils Abs 0.1 0.0 - 0.1 [facility] x10(3)/[facility] LABORATORY Immature Gran % 0.50 % [facility] Comment: Immature granulocytes(IG's)percentage an d absolute count will include metamyelocytes, myelocytes, and promyelo cytes. Blood smears from CBCs yielding IG's will be scanned manually for concor dance. If this scan disagrees with the automated IG or if promyelocytes are not ed, a manual differential will be performed. Shannan Gran Abs 0.06 (H) 0.00 - 0.04 x10(3)/[facility] LABORATORY Specimen Anatomical Collection Method Collection Time Receive d Time (Source) Location / / Volume Laterality Blood 11/19/2021 5:56 AM 6:16 EDT AM EDT Resulting Agency Comment Spec In Lab Valentina Montoya MD HEMATOLOGY ORDERABLES Performing Organization Address City/State/[place] [address] (ABNORMAL) Hemogram (11/19/2021 5:56 AM EDT) Analysis Performed At Patho logist Time Signature WBC 13.1 (H) 4.0 - 9.5 [facility] x10(3)/[facility] LABORATORY RBC 3.98 (L) 4.58 - [place] LATHAMCOCK 5.54 [facility] x10(6)/[facility] LABORATORY Hemoglobin 12.7 (L) 13.7 - [facility] 16.5 g/dL [facility] Hematocrit 39.4 (L) 40.5 - [place] DEGAR 48.5 % [facility] MCV 99.0 (H) 82.9 - [facility] 93.1 [facility] LABORATORY MCH 31.9 27.5 - [place] EDGAR 32.1 pg [facility] MCHC 32.2 32.0 - [facility] 35.7 g/dL [facility] Platelets 217 145 - 357 [facility] x10(3)/[facility] LABORATORY RDWSD 51.4 (H) 36.0 - [facility] 45.0 [facility] LABORATORY RDWCV 14.0 (H) 11.4 - [facility] 13.8 % [facility] MPV 9.4 7.6 - 12.9 [facility] LABORATORY nRBC % Auto 0.0 % [facility] nRBC Abs Auto 0.000 0.000 - [facility] 0.000 [facility] x10(3)/[facility] LABORATORY Specimen Anatomical Collection Method Collection Time Receive d Time (Source) Location / / Volume Laterality Blood 11/19/2021 5:56 AM 6:16 EDT AM EDT Resulting Agency Comment Spec In Lab Valentina Montoya MD HEMATOLOGY ORDERABLES Performing Organization Address City/State/[place] [address] (ABNORMAL) Sedimentation rate (11/19/2021 5:56 AM EDT) P athologist Signature Sed Rate 104 (H) 2 - 37 [facility] mm/hr [facility] Comment: Effective April 21, 2019 new [...] Organization Address City/State/[place] [address] (ABNORMAL) Basic Metabolic Panel (non-fasting) (11/19/2021 5:56 AM EDT) P athologist Signature Glucose Lvl 87 65 - 199 [facility] mg/dL [facility] Comment: Diabetes: >=200 mg/dL plus symp toms BUN 12 10 - 20 mg/dL [facility] Creatinine 0.98 0.80 - 1.50 mg/dL [facility] Sodium 139 135 - 145 mmol/L [facility] Potassium 3.5 3.5 - 5.0 mmol/L [facility] Comment: Please note: ??Patients with WBC >100,00 0 may have falsely elevated Potassium levels. ??For accurate Potassium quantif ication in these patients send serum separator tube (gold top) for subsequent determinations. ??Contact the Clinical Chemistry Laboratory if there are any qu estions. Chloride 98 98 - 107 mmol/L [facility] CO2 34 (H) 22 - 31 mmol/L [facility] Anion Gap 7 5 - 15 mmol/L [facility] Calcium 9.0 8.5 - 10.5 mg/dL [facility] Estimated GFR 84 >=60 mL/min/1.73 m?? [facility] Comment: This patient's estimated GFR [...] Organization Address City/State/[place] [address] Surgical Pathology Report (11/18/2021 8:56 PM EDT) Component Value Ref Test Analysis Performed At [facility] Range Method Time Signature Surgical [id number] ? Location: 1WST; 0110; B [facility] Report The signing pathologist has (i) examined the relevant preparation(s) for the [facility] specimen(s) and (ii) rendered or confirmed the [...] MD Verified: ??11/28/2021 12:13 ??Pathologist Performed at: ??-[facility] Dept. of Pathology, [place], [place] SPECIMEN(S) SUBMITTED A - ??Right great [...] for decalcification: A1-A5. Touch prep(s) are prepared. Motion Picture Set Grip sections in 6 cassettes as follows: ?A1-A4: [...] Organization Address City/State/[place] [address] Specimen to Pathology (11/18/2021 8:56 PM EDT) Specimen Anatomical Collection Method Collection Time Receive d Time (Source) Location / / Volume Laterality AP Specimen 11/18/2021 8:56 PM 8:56 EDT PM EDT Narrative [facility] - 11/18/2021 8:56 PM EDT Specimen requisition ordered. ??Separate Pathology report to follow Valentina Montoya MD PATHOLOGY/CYTOLOGY ORDERABLE S Performing Organization Address City/State/[place] [address] (ABNORMAL) Anaerobic Culture (11/18/2021 8:52 PM EDT) [facility] gist Method Time Signature Anaerobic Rare [place] Culture Bacteroides EDGAR species (A) [facility] Organism Bacteroides [place] species (A) [facility] Specimen Anatomical Collection Method Collection Time Receive d Time (Source) Location / / Volume Laterality Stump STRUCTURE OF RIGHT 11/18/2021 8:52 PM 02/2022 FOOT / Unknown EDT 10:42 PM EDT Comment: Cut end of RIGHT metatarsal bon e. Resulting Agency Comment Spec In Lab Sammy Baker MD MICROBIOLOGY - GENERAL ORDER SILAS Performing Organization Address City/State/[place] [address] Abscess/Wound Aspirate Culture (11/18/2021 8:52 PM EDT) Component Value Ref Test Analysis Performed At [facility] Enomaly Range Method Time Signature Abscess/Wound No growth [place] Aspirate EDGAR Culture [facility] Gram Stain Few Neutrophils seen [place] No microorganisms seen. [facility] Results called to and read back by Sd Cedillo ??11/18/21 23:17:2 4 [facility] Specimen Anatomical Collection Method Collection Time Receive d Time (Source) Location / / Volume Laterality Stump STRUCTURE OF RIGHT 11/18/2021 8:52 PM 02/2022 FOOT / Unknown EDT 10:42 PM EDT Comment: Cut end of RIGHT metatarsal bon e. Resulting Agency Comment Spec In Lab Sammy Baker MD MICROBIOLOGY - GENERAL ORDER SILAS Performing Organization Address City/[facility]/[place] [address] (ABNORMAL) Anaerobic Culture (11/18/2021 8:52 PM EDT) [facility] Method Time Signature Anaerobic Many [place] Culture Bacteroides EDGAR species (A) [facility] Organism Bacteroides [place] species (A) [facility] [facility] Specimen Anatomical Collection Method Collection Time Receive d Time (Source) Location / / Volume Laterality Abscess TOE STRUCTURE / 11/18/2021 8:52 PM 2021 Unknown EDT 10:41 PM EDT Comment: #2 RIGHT great toe. Resulting Agency Comment Spec In Lab Sammy Baker MD MICROBIOLOGY - GENERAL ORDER SILAS Performing Organization Address City/[facility]/[place] [address] (ABNORMAL) Abscess/Wound Aspirate Culture (11/18/2021 8:52 PM EDT) Component Value Ref Test Analysis Performed At [facility] gist Range Method Time Signature Abscess/Wound Many Proteus mirabilis MAR Y Aspirate Many Streptococcus milleri, anginosis group [place] Culture (A) [facility] Gram Stain Many Neutrophils seen LOUISA Many Gram Positive Cocci seen [place] Many Gram Negative Rods seen EMORIME Results called to and read back by Sd Cedillo ??11/18/21 23:16:5 0 [facility] () LABORATORY Organism Proteus mirabilis [facility] (A) [facility] Organism Streptococcus LOUISA milleri, [place] anginosis group [facility] Organism Gram Positive LOUISA Cocci (A) [facility] Organism Gram Negative LOUISA Rods (A) [facility] Specimen Anatomical Collection Method Collection [...] Organization Address City/State/[place] [address] (ABNORMAL) Anaerobic Culture (11/18/2021 8:52 PM EDT) [facility] Enomaly Method Time Signature Anaerobic Many L[place]ISA Culture Bacteroides [place] species () [facility] Organism Bacteroides LOUISA species (A) [facility] Specimen Anatomical Collection Method Collection Time Receive d Time (Source) Location / / Volume Laterality Abscess TOE STRUCTURE / 11/18/2021 8:52 PM 2021 Unknown EDT 10:43 PM EDT Comment: #1 RIGHT great toe. Resulting Agency Comment Spec In Lab Sammy Baker MD MICROBIOLOGY - GENERAL ORDER SILAS Performing Organization Address City/[facility]/ZIP Code Phon e Number [address] (ABNORMAL) Abscess/Wound Aspirate Culture (11/18/2021 8:52 PM EDT) Component Value Ref Test Analysis Performed At [facility] Enomaly Range Method Time Signature Abscess/Wound Many Proteus mirabilis MAR Y Aspirate Rare Staphylococcus aureus [place] Culture Many Streptococcus milleri, anginosis [facility] LABORATORY Gram Stain Many Neutrophils seen LOUISA Many Gram Positive Cocci seen EDGAR Many Gram Negative Rods seen EMORIAL Results called to and read back by Sd Cedillo ??11/18/21 23:16:1 6 [facility] Organism Staphylococcus LOUISA aureus (A) [facility] Organism Proteus mirabilis [facility] (A) [facility] Organism Streptococcus LOUISA milleri, [place] anginosis [facility] LABORATORY Organism Gram Positive LOUISA Cocci (A) [facility] Organism Gram Negative LOUISA Rods (A) [facility] Specimen Anatomical Collection Method Collection [...] Comment: Gentamicin is not a ppropriate for [place]-therapy. Staphylococcus aureus Oxacillin VITEK 2 METHOD Sensitive [...] Organization Address City/State/ZIP Code Phon e Number [place] [id number] CT Lower Extremity w [...] who have questions please contact the health customer care team coach that requested your imaging first. ? Electronically signed by: Wicho Michael MD, [facility] ([phone]), at 11/19/2021 2:58 AM Narrative 11/19/2021 2:58 [...] ho have questions please contact the health customer care team coach that requested your imaging first. Lorrie Lundberg MD IMG CT ORDERABLES Hepatic Function Panel (11/18/2021 5:25 PM EDT) Analysis Performed At Patho logist Time Signature Total Protein 6.6 6.1 - 8.0 [facility] g/dL [facility] Albumin 3.3 3.2 - 5.2 [facility] g/dL [facility] AST Not Perf 0 - 39 [facility] Comment: Unable to quantitate due to sample hemol ysis. ??Sample redraw suggested. Called by: dahlia, Read back by: rukhsana ornelas, Date/Time:11/18/21 20:09. ALT 8 0 - 55 unit/L [facility] Alk Phos 91 40 - 130 unit/L [facility] Total Bilirubin 0.4 0.2 - 1.3 mg/dL [facility] Bili, Direct Not Perf 0.0 - 0.3 [facility] Comment: Unable to quantitate due [...] Organization Address City/State/[place] [address] (ABNORMAL) Basic Metabolic Panel (non-fasting) (11/18/2021 5:25 PM EDT) athologist Signature Glucose Lvl 113 65 - 199 [facility] mg/dL [facility] Comment: Diabetes: >=200 mg/dL plus symp toms BUN 13 10 - 20 mg/dL [facility] Creatinine 0.93 0.80 - 1.50 mg/dL [facility] Sodium 136 135 - 145 mmol/L [facility] Potassium 4.2 3.5 - 5.0 mmol/L [facility] Comment: Please note: ??Patients with WBC >100,00 0 may have falsely elevated Potassium levels. ??For accurate Potassium quantif ication in these patients send serum separator tube (gold top) for subsequent determinations. ??Contact the Clinical Chemistry Laboratory if there are any qu estions. Chloride 96 (L) 98 - 107 mmol/L [facility] CO2 32 (H) 22 - 31 mmol/L [facility] Anion Gap 8 5 - 15 mmol/L [facility] Calcium 9.0 8.5 - 10.5 mg/dL [facility] Estimated GFR 89 >=60 mL/min/1.73 m?? [facility] Comment: This patient's estimated GFR [...] Organization Address City/State/[place] [address] (ABNORMAL) CRP, acute inflammation (11/18/2021 5:25 PM EDT) P athologist Signature CRP 265.6 (H) <=4.9 mg/L [facility] Specimen Anatomical Collection Method Collection Time Receive d Time (Source) Location / / Volume Laterality Blood 11/18/2021 5:25 PM 5:36 EDT PM EDT Resulting Agency Comment Spec In Lab Lorrie Lundberg MD CHEMISTRY ORDERABLES Performing Organization Address City/State/[place] [address] documented in this encounter [...] Fri11/29/21 at 2006, Pain, for severe pain (7-10), May give an additional 2 mg once if pain not relieved in 30-60 minutes., Routine hydrOXYzine (Atarax) tablet 25 mg Given 11/28/2021 4:07 PM EDT 25 mg 25 mg, Oral, DAILY PRN, Starting on Fri11/27/21 at 1130, Until Fri11/29/21 at 2006, Anxiety, Routine ipratropium-albuteroL (Duoneb) 0.5 mg-3 mg(2.5 [...] Cordova RN) 0031 (Given - Provider: Claudia Long RN)0616 (Given - Provider: Claudia Long, RN)1206 (Given - Provider: Malinda Díaz, VINCENT)1753 (Given - Provider: Malinda Díaz RN) 0013 (Given - Provider: Louisa Cardenas RN)0628 (Given - Provider: Louisa Cardenas RN)1133 (Given - Provider: Bernice Coronel, RN) 650 mg, Oral, EVERY 6 HOURS SCHEDULED, F irst dose (after last modification) on Fri11/27/21 at 1200, Until Discontinued, Administer for temperature greater than or equal to 38.2 degrees celsius. Maximum daily dose of acetaminophen from all [facility] rces not to exceed 4,000 mg. When ordered for pain, acetaminophen should be given even when other ordered pain medications are indicated., Routine busPIRone (Buspar) tablet 15 mg 0832 (Given - Provider : Amy Yates LPN)2058 (Given - Provider: Bridgette Cho RN) 08 (Given - Provider: Malinda Díaz RN)2207 (Given [...] mL 1611 (New Bag - Provider: Carissa J Laferriere, RN - Comment: off to get picc)1641 [...] 40 mg 2058 (Given - Provider: Bridgette Cho RN) 2205 (Given - Provider: Louisa Cardenas RN) [...] RN) 0928 (New Bag - Provider: Bernice Coronel, VINCENT)1002 (Stopped - Provider: Bernice Coronel RN) 1 g, Intravenous, DAILY, First dose on 11/27/21 at 1400, Until Discontinued, Administer over 30 Minutes, Indication for (Active or Suspected): Bone/Joint, Restricted Antibiotic: Please indicate the most appropriate choice: ID Approval by Donal Serrano folic acid (Folvite) tablet 1,000 mcg 0831 (Given - Pr ovider: Amy Yates LPN) 0817 (Given - Provider: Malinda Díaz RN) 0928 [...] Routine lactobacillus with pectin capsule 1 capsule 175 (Given - Provider: Malinda Díaz RN) 0928 (Given - Provider: Donna Ramsey) 1 capsule, Oral, DAILY, First dose on 11/28/21 at 1815, Until Discontinued, Routine lisinopriL (Zestril) tablet 40 mg 0832 (Given - Provid er: Amy Yates LPN) 0816 (Given - Provider: Malinda Díaz, VINCENT) 0928 (Gi mita - Provider: Berniec Coronel, VINCENT) 40 mg, Oral, DAILY, First dose on 05/02 at 1530, Until Discontinued, Hold for SBP <90, Routine loperamide (Imodium A-D) capsule 2 mg (COMPLETED) 1752 (Given - Provider: Malinda Díaz, VINCENT) 2 mg, Oral, ONCE, 1 dose, On [...] ) 1400 (Given - Provider: Malinda Díaz, RN) 30 mg, Oral, ONCE, 1 dose, On [...] Routine metroNIDAZOLE (Flagyl) tablet 500 mg (CANCELED) 830 ( Given - Provider: Amy Yates LPN) 500 mg, Oral, 3 TIMES DAILY, First dose on Fri11/23/21 at 1645, Until Discontinued, Routine mirtazapine (Remeron) tablet 30 mg 2058 (Given - Provi angie: Bridgette Cho, VINCENT) 2206 (Given - Provider: Louisa Cardenas, VINCENT) 30 mg, Oral, NIGHTLY, First dose on [...] (Patch Removed - Provider: Amy Yates LPN) 0822 (Patch Removed - Provider: Malinda Díaz RN) 0900 (Patch Removed - Provider: Bernice Coronel, VINCENT) Transdermal, DAILY, First dose on 04/02 at [...] (dose and location) verified - Provider: Bernice Coronel, VINCENT) Transdermal, 2 TIMES DAILY, First dose o n Fri11/19/21 at 0800, Until Discontinued, Verify nicotine 21 mg/24 hr patch pantoprazole EC (Protonix) tablet 40 mg 0832 (Given - Provider: Amy Yates LPN)2058 (Given - Provider: Bridgette Cho RN) 08 (Given - Provider: Malinda Díaz RN)2206 (Given - Provider: Louisa Cardenas RN) 09 (Given - Provider: Bernice Coronel, VINCENT) 40 mg, Oral, 2 TIMES DAILY, First dose o n Fri11/19/21 at 0000, Until Discontinued, DO NOT CRUSH OR OPEN, Routine potassium chloride 10 mEq in sterile water 100 mL infusion ( COMPLETED) 0440 (New Bag - Provider: Claudia Long RN)0617 (Stopped - Provider: Claudia Long RN)0618 (New Bag - Provider: Claudia Long RN)0746 (Stopped - Provider: Malinda Díaz, VINCENT)0823 (New Bag - Provider: Malinda Díaz, VINCENT) 10 mEq, Intravenous, EVERY 2 HOURS, 3 do ses, First dose on Fri11/28/21 at 0500, Last dose on Fri11/28/21 at 0900, Administer over 60 Minutes, Warning Vesicant/Irritant Medication 0923 (Stopped - Provid er: Malinda Díaz RN) potassium chloride ER (K-Dur/Klor-Con) tablet 40 mEq (COMPLE LUL) 0439 (Given - Provider: Claudia Long RN) 40 mEq, Oral, ONCE, 1 dose, [...] duonebs, Routine cyclobenzaprine (Flexeril) tablet 5 mg 1923 (Given - P rovider: Bridgette Cho RN) [...] 2) 1 736 (Given - Provider: Carissa Cordova, RN) 0045 (See Alternative - Provider: Angelica Pat, VINCENT) 4 mg, Oral, EVERY 4 HOURS PRN, [...] S tarting on Fri11/18/21 at 2259, Until Christina 11/29/21 at 2005, flush, Flush pertains to all [...] Fri11/29/21 at 2005, Pain, for severe pain (7-10)
May give an additional 2 mg once if pain not relieved in 30-60 minutes.
Routine documented in this encounter Additional Health Concerns Infection Onset Date Last Indicated Resolved Time Rule Out C. difficile 11/26/2021 11/26/2021 11/27/2021 2:30 PM EDT documented as of this encounter Care Teams Fountain Supervisor Relationship Specialty Start Date End Date Brian Fall APRN PCP - General Internal Medicine 04/07/[birth year] [address] [place] [phone] documented as of this encounter
--- OUTSIDE RECORDS SUMMARY | 2021-11-30 08:18 | XMS_ITS | Encounter Summary ---
:1955 [place] [address] Care Team Providers Name Role Phone Brian Fall APRN Primary Care Provider Encounter Details Date Type Department Care Team Description 11/18/2021 Telephone Orthopaedics at [facility] Alis Dowling MD [facility] [place] [address] ORTHOPAEDIC SURGERY [phone] [place], [place] [address] (Wo rk) Social History Tobacco Use Types Packs/Day Years Used Date Current Every Day Smoker Cigars, Cigarettes 1 42 Smokeless Tobacco: Never Used Comments: a pack or less a day Alcohol Use Standard Drinks/Week Comments Yes 22 (1 standard drink = 0.6 oz pure alcoh ol) Sex Assigned at Date Recorded Not on file documented as of this encounter Miscellaneous Notes Telephone Encounter - Alis Dowling MD - 11/18/2021 2:29 PM EDT TC: [facility] TC Provider: Dr. Winn 66yoM, afebrile, VSS, otherwise well appearing, no recent infections otherwise. Has had 6 months since complications related to any ulcers. No hx surgeries or debridements on this foot. Has had multiple ulcers and issues with bilateral feet related to his advanced peripheral neuropathy (related to chronic ETOH abuse). Prior L foot amputations. Never on right. This wound progressed rapidly overnight and truned back overnight progressing to whole R foot being swollen and erythematous Hx chronic osteomyelitis bilateral feet, chronic ulcers, advanced peripheral neuropathy (related to chronic ETOH abuse), COPD (baseline O2) Labs: WBC 23k, Cr 1.1, Hgb 13, Glucose 117, Na 137, CRP unknown (not obtained) Dr. An at ED on line to accept as ED to ED transfer. Will advise medicine service admission likely given above mentioned issues and surgical consultation with orthopaedics. Please keep NPO in even this represents an NSTI and needs to go for urgent debridement. Need CRP to calculate LRINEC (willtry to get at [facility] while awaiting transpo vs. Obtain in ED. documented in this encounter Plan of Treatment Upcoming Encounters Date Type Specialty Care Team Description 12/11/2021 Appointment Radiology 12/11/2021 Office Visit Orthopaedics Marion Tavera APRN [facility] ORTHOPAEDIC SURG [place], [place] [address] (Wo rk) 01/15/2022 Appointment Radiology Stiven Cervantes MD [facility] Pulmonary Medici [place], [place] [address] (Wo rk) Scheduled Procedures Name [...] No Ryan, Compliance and Facing (07/31/2016 Julia Esquivel Understanding Action Plan 9:07 AM EDT) [facility] Note: Formatting of this note might be d ifferent from the original. Patient Goal: To experience less side ef fects than his past regimen of Peg and Ribavirin Timeframe to meet goal: 3 months of ther apy documented as of this encounter Visit Diagnoses Not on filedocumented in this encounter Care Teams Fast Food Supervisor Relationship Specialty Start Date End Date Brian Fall APRN PCP - General Internal Medicine 04/07/[address] [place] [phone] documented as of this encounter
--- OUTSIDE RECORDS SUMMARY | 2021-11-30 08:18 | XMS_ITS | Encounter Summary ---
:1955 Author Organization [facility] [place] [address] Care Team Providers Name Role Phone Brian Fall APRN Primary Care Provider Encounter Details Date Type Department Care Team Description 08/16/[address] Scan [place] [facility] [place] [address] Social History Tobacco Use Types Packs/Day Years Used Date Current Every Day Smoker Cigars, Cigarettes 1 42 Smokeless Tobacco: Never Used Comments: a pack or less a day Alcohol Use Standard Drinks/Week Comments Yes 22 (1 standard drink = 0.6 oz pure alcoh ol) Sex Assigned at Date Recorded Not on file documented as of this encounter Plan of Treatment Upcoming Encounters Date Type Specialty Care Team Description 12/11/2021 Appointment Radiology 12/11/2021 Office Visit Orthopaedics Marion Tavera APRN [facility] ORTHOPAEDIC SURG [place], [place] [address] (Wo rk) 01/15/2022 Appointment Radiology Stiven Cervantes MD [facility] Pulmonary Medici [place], [place] [address] (Wo rk) Scheduled Procedures Name [...] on filedocumented in this encounter Care Teams Accounting Professional Relationship Specialty Start Date End Date Brian Fall APRN PCP - General Internal Medicine 04/07/[address] [place] [phone] documented as of this encounter
--- OUTSIDE RECORDS SUMMARY | 2021-11-30 08:18 | XMS_ITS | Encounter Summary ---
:1955 Author Organization [facility] [place] [address] Care Team Providers Name Role Phone Brian Fall APRN Primary Care Provider Reason for Visit Auth/Cert Specialty Diagnoses / Procedures Referred By Contact Refer red To Contact Diagnoses Necrotizing fasciitis Cellulitis of leg, right Necrotic toes [place]fected [place] [address] Referral ID Status Reason Start Date Expiration Date Visits Requ ested Visits Authorized [id number] 1 1 Encounter Details Date Type Department Care Team Description 11/18/2021 Anesthesia Event Main Operating Room Reyna Barraza MD [facility] [place] [address] David Kelly MD [facility] [place] [address] [place] [address] Anesthesia Record Procedure Summary Procedure Name Responsible Anesthesia Start Anesthesia Stop Anesthesiologist Time Time AMPUTATION TOE, Amy Barraza MD 11/18/212020 2 2124 METATARSO-PHALANGEAL JOINT (WRVU 5.82) (Right Leg) Events Date Time Event Comment 11/18/20212020 AN Verify 2020 Start 2020 An Start Data 2025 An Induction 2029 An Intubation 2030 Quick Note Block start 2039 Anesthesia Ready 2047 An Tourn Inflated 2047 Procedure Start 2054 An Tourn Deflated 2110 Procedure Stop 2116 Extubation/LMA Out 2117 an stop data 2123 Recovery or ICU Handoff Patient care was transferred to the destination unit staff after review of the patient's medica l history, current anesthetic/surgi karla status and plan, according to the Provider Handoff Checklist. 2123 Stop 2140 Name Total fentaNYL 100 mcg Propofol 200 mg Rocuronium 50 mg PHENYLephrine 640 mcg ePHEDrine 40 mg Ondansetron 4 mg Dexmedetomidine 8 mcg vancomycin (Vancocin) 1.75 gram in sodium chloride 0.9 % 500 mL infusion 1.75 g piperacillin-tazobactam (Zosyn) 4.5 g vial attach to s odium chloride 0.9% 100 4.5 g mL Mini-Bag Plus ROpivacaine 0.2% 20 mL Sugammadex 400 mg clindamycin (Cleocin) 600 mg in dextrose 5% 50 mL infu derrek 600 mg Lactated Ringers 700 mL Agents Name O2 Air N2O Sevoflurane (et) Blood No blood administrations on file. Lines, Drains, and Airways Type Details Placement Removal Incision 11/18/21; 2046; Right; first 11/18/212046 by mary cMkeon; other (see comments); Mila Esquivel RN amputation site. Incision 12/13/15; knee; 11/23/21; 12/13/15 0000 by Alejandra montana, 11/23/21 1323 by Micah, 1323 VINCENT Philippe RN Wound 03/09/20; 0934; foot; 03/09/20 0934 by Kiki, 1324 by araceli Obrien; erythema and VINCENT Brennan RN edema, pt seen by wound care for this particular wound; 11/23/21; 1324 Wound 03/09/20; 0935; foot; 03/09/20 0935 by Kiki, 1323 by araceli Obrien; no edema, redness. VINCENT Brennan RN ; 11/23/21; 1323 Incision 03/10/20; foot; 11/23/21; 03/10/20 0000 by Gil barclay, 11/23/21 1323 by Micah, Prateek3 VINCENT Bautista RN PIV 11/18/21; metacarpal vein 11/18/21 0000 by Marvel reno, 11/18/21 2100 by Murali, (top of hand), right; Cristian Foreman, ANABELLA Thompson RN kjtp-ueo-ivggcj catheter system; 20 gauge; OSH; lumen/catheter not patent, LDA not present upon assessment; 11/18/21; 2099 PIV 11/18/21; 1605; dorsal arch 11/18/21 1605 by 03/02 2100 by Murali, vein (top of hand), right; Tyson Merida RN kbbp-bac-joyxmq catheter system; Anatomical Landmarks; US Not Used; 20 gauge; EMS; distraction, tolerated well, appears comfortable; LDA not present upon assessment; 11/18/21; 2099 PIV 11/18/21; 1807; cephalic 11/18/21 1807 by Anamaria smyth, 11/19/21 1154 by Larry, vein (lateral side of arm), Cristian Foreman, NRP Milena Eason RN left; dxgz-uvh-ytskkn catheter system; Anatomical Landmarks; US Not Used; 20 gauge; Cristian NRP; distraction, tolerated well; removed per policy/procedure, site care per policy/procedure, site symptomatic, catheter/device intact; 11/19/21; 1154 ETT Mask Ventilation: Easy (1); 11/18/212029 by Khadijah iakendra, 11/18/212116 by ETT Type: Cuffed; ETT Size: ZULEIKA Lopez Julie M, CRNA 7.5 mm; Mac Blade: 4; Notes: Asleep, Pre-O2, Stylette; Attempts: 1; Laryngoscopy Grade: 1; Secured at Teeth: 23 cm; Inserted by: Dr. Barraza PIV 11/18/21; 2058; basilic vein 11/18/212058 by Me castellanos, 11/19/212011 by (medial side of arm), right; ZULEIKA Lopez Rachel M, yrnj-lsz-iubuuk catheter SAW MAKER system; Anatomical Landmarks; 18 gauge; Milena Patel ASSISTANT PASSENGER LOCOMOTIVE ENGINEER; tender to flush; 11/19/21; 2011 NPWT 11/18/21; 2109; Right; foot; 11/18/21 2110 by Rory chris, 11/25/21 0000 by Efra, 11/25/21 VINCENT Callahan RN documented in this encounter Social History Tobacco [...] encounter OR Notes Anesthesia Postprocedure Evaluation - Amy Barraza MD - 11/18/2021 9:41 PM EDT Department of Anesthesiology Post-procedure Note Patient: Mahin Ramos Procedure Summary Date: 11/18/21 Room / Location: [facility] MAIN OR Anesthesia Start: 2020 Anesthesia Stop: Procedure: AMPUTATION TOE, METATARSO-PHALANGEAL JOINT (WRVU 5.82) (Right Leg) Diagnosis: (Right great toe necrotic infection) Surgeons: Sammy Baker MD Responsible Provider: Amy Barraza MD Anesthesia Type: general ASA Status: 3 - Emergent All Anesthesia Providers: Anesthesiologist: Amy Barraza MD ASSISTANT PASSENGER LOCOMOTIVE ENGINEER: Milena Patel CRNA Vitals Value Taken Time BP 117/72 11/18/211 Temp Pulse 95 11/18/211 Resp 17 11/18/211 SpO2 89 % 11/18/212140 Pain Level Vitals shown include unvalidated device data. Patient Location: PACU/[facility] Level of Consciousness: Awake and Alert Pain Management: Satisfactory Analgesia PONV: None Cardiovascular Status: At Baseline and Hemodynamically Stable Respiratory Status: At Baseline and Supplemental O2 (NC or FM) Postoperative Fluid Status: Intravascular EUvolemia Possible Anesthetic Complications: NONE apparent at time of evaluation Final Primary Anesthesia Type: General (The anesthetic type performed was the same as planned.) Comments: AMY BARRAZA MD Anesthesia Preprocedure Evaluation - Amy Barraza MD - 11/18/2021 9:39 PM EDT Pre-Anesthesia Evaluation for: Mahin Ramos a 66 y.o. male. Procedure(s): AMPUTATION, TRANSMETATARSAL (WRVU 12.71) MODIFIER WOUND VAC Patient Active Problem List Diagnosis ??? Pruritic rash ? ? S/p right great toe amp, I&D, vac 11/18/21 (Samuel) ??? Cellulitis ??? Osteomyelitis ??? Neuropathic ulcer of toe of right foot with fat layer exposed ??? Neuropathic ulcer of foot, right, with fat layer exposed ??? Patient has active durable power of civil rights attorney (DPOA) designee for healthcare ??? Methadone dependence ??? Minimal cognitive impairment ??? Claustrophobia ??? Hyperlipidemia ??? Avascular necrosis of humeral head right ??? Pain in left shoulder ??? Verruca plantaris ??? Gastroesophageal reflux disease ??? Cirrhosis ?? viral load (02/16) 234,000 IU/ml; genotype:2b ?? unclear when acquired ?? viral relapse after 48 weeks of treatment with peg and ribavirin ?? Liver biopsy- (07/18): ---Pathologic Diagnosis--- Liver, needle biopsy specimen showing changes consistent with chronic hepatitis C, stage 3-4/4, grade 2/4 (mild activity); and concomitant severe alcoholic/nonalcoholic steatohepatitis/steatofibrosis ??? Polysubstance abuse ?? Per referring Problem List - history of cocaine metabolites, suspicion of selling illicit substances in the past, and breaking pain contracts ??? Avascular necrosis bilateral knees ??? Depressive disorder ??? Neuropathy ??? Chronic obstructive lung disease ??? Edema ??? Essential hypertension ??? Confusion ??? Hepatitis C Genotype 2b ??? Gout ??? Alcohol dependence ??? Anxiety ??? ADHD NOS ??? Chronic back pain ??? Major depressive disorder, single episode, unspecified Past Medical History: Diagnosis Date ??? Ankle [...] performed by Geovanna Lewis MD at [facility] MAIN OR ??? PRO TOTAL KNEE ARTHROPLASTY Left 12/13/2015 @TOTAL KNEE ARTHROPLASTY performed by Gordon Mallory MD at [facility] MAIN OR ??? PRO UPPER GI ENDOSCOPY, DIAGNOSTIC Bilateral 08/17/2015 EGD, UPPER GI ENDOSCOPY performed by Trev Hong MD at [facility] ENDOSCOPY ??? REVISION TOTAL HIP [...] home medications have been reviewed. Physical Exam: No data found. There is no height or weight on file to calculate BMI. Airway Assessment: Mallampati: III TM distance: >3 FB Neck ROM: full Cardiovascular Assessment: system normal Pulmonary Assessment: (+) wheezes and decreased breath sounds Dental Assessment: (+) lower dentures and upper dentures Misc Assessment: Patient is wearing No contact(s). IV access: Peripheral line Other exam findings: Easy intubation in the past Anesthesia Plan: ASA 3 emergent general, with a(n) intravenous induction 64 y/o here for right amputation transmet wound vac for osteomyelitis/nec fasc. PMH: current smoker, anxiety, EtOH abuse, chronic pain on methadone daily and gabapentin daily, cirrhosis history (INR and plats WNL), hep C, HTN, COPD, neuropathy PSH: spine surgery, TKA under general, NATHANAEL, endos Plan : PNB for post op pain control per surgeon request. GETA. Region - Other Informed Consent: Anesthetic plan and risks discussed with patient and spouse. Plan discussed with ASSISTANT PASSENGER LOCOMOTIVE ENGINEER. Anesthesia Screening Anesthesia Procedure Notes - David Topete MD - 11/18/2021 8:45 PM EDT Associated Order(s): Anesthesia Block Anesthesia Block Date/Time: 11/18/2021 8:29 PM Performed by: David Topete MD Authorized by: Amy Barraza MD Start Time: 11/18/2021 8:29 PM End Time: 11/18/2021 8:39 PM Patient Location: Main OR The patient was greeted; the risks and benefits of the procedure were reviewed. Indication: Post-op Pain Control Post-op pain management at the request of surgeon. Block Type: Adductor canal block and sciatic sciatic/ popliteal nerve block Laterality: Right Position: Supine Prep: Chlorhexidine, patient draped and mask, cap, sterile gloves, hand hygeine Block Technique: SonoPlex 18 10 cm Ultrasound Guided: YES and in-plane [...] Anesthetic Volume(s) Injected for Nerve Block: ROpivacaine 0.2% - Perineural 20 mL - 11/18/2021 8:29:00 PM Nerve Sensory/MotorTest: Events: no complications Staff: Resident/ASSISTANT PASSENGER LOCOMOTIVE ENGINEER:: David Topete MD Attending Physician:: Amy Barraza MD Notes: 10cc 0.2% ropivacaine injected at each of right popliteal sciatic and right adductor canal saphenous nerves. documented in this encounter Plan of Treatment Upcoming Encounters Date Type Specialty Care Team Description 12/11/2021 Appointment Radiology 12/11/2021 Office Visit Orthopaedics Marion Tavera APRN [facility] DR ORTHOPAEDIC SURG [place], [place] [address] (Wo rk) 01/15/2022 Appointment Radiology Stiven Cervantes MD [facility] Pulmonary Medici [place], [place] [address] (Wo rk) Scheduled Procedures Name [...] Esquivel, Understanding Action Plan 9:07 AM EDT) [facility] Note: Formatting of this note might be d ifferent from the original. Patient Goal: To experience less side ef fects than his past regimen of Peg and Ribavirin Timeframe to meet goal: 3 months of ther apy documented as of this encounter Procedures Procedure Name Priority Date/Time Associated Diagnosis Comme nts ANESTHESIA BLOCK Routine 11/18/2021 8:29 PM Resul ts for this EDT procedure are i n the results section. documented in this encounter Results Anesthesia Block (11/18/2021 8:29 PM EDT) Narrative Amy Barraza MD - 11/18/2021 8: 29 PM EDT David Topete MD ? 11/18/2021 ??8:46 PM Anesthesia Block Date/Time: 11/18/2021 8:29 PM Performed by: David Topete MD Authorized by: Amy Barraza MD Start Time: ??11/18/2021 8:29 PM End Time: ??11/18/2021 8:39 PM Patient Location: ??Main OR The patient was greeted; the risks and b enefits of the procedure were reviewed. ?? Indication: ??Post-op Pain Control Post-op pain management at the request o f surgeon. ?? Block Type: ??Adductor canal block and s ciatic sciatic/ popliteal nerve block Laterality: ??Right Position: ??Supine Prep: ??Chlorhexidine, patient draped an d mask, cap, sterile gloves, hand hygeine Block Technique: ?? SonoPlex ?? 18 ?? 10 cm ??Ultrasound Guided: ??YES and [...] Volume(s) Injected for Nerve Block: ?? ROpivacaine 0.2% - Perineural 20 mL - 11/18/2021 8:29:00 PM Nerve Sensory/MotorTest: ??Events: no complications ?? Staff: ??Resident/ASSISTANT PASSENGER LOCOMOTIVE ENGINEER:: ??David Topete M D ??Attending Physician:: ??Leroy Barraza MD Notes: ?? 10cc 0.2% ropivacaine injected at ea ch of right popliteal sciatic and right adductor canal saphenous nerves. Amy Barraza MD SEED SALES MANAGER [employer] documented in this encounter Visit Diagnoses Not on filedocumented in this encounter Administered Medications Inactive Administered Medications - up to 3 most recent administrations Medication Order MAR Action Action Date Dose Rate Site clindamycin (Cleocin) 600 mg New Bag 11/22/2021 2:36 PM EDT 600 mg 150 mL/hr in dextrose 5% 50 mL infusion 600 mg, Intravenous, EVERY 8 HOURS, First dose on 11/18/21 at 2200, Until Discontinued, Administer over 20 Minutes, Indication for (Active or Suspected): Bone/Joint New Bag 11/22/2021 6:21 AM EDT 600 mg 150 mL/hr New Bag 11/21/2021 10:53 PM EDT 600 mg 150 mL/hr dexmedeTOMIDine (Precedex) (4 mcg/mL) bolus Given 11/18/2021 8:2 4 PM EDT 8 mcg injection (Anesthsia) Intravenous, PRN, Starting on 11/18/21 at 2023, Until 11/18/21 at 2141, Anesthesia Intra-op, Routine ePHEDrine sulfate (5 mg/mL) multi-dose Given 11/18/2021 9:10 PM EDT 5 mg injection Intravenous, PRN, Starting on 11/18/21 at 2042, Until 11/18/21 at 2141, Anesthesia Intra-op, Routine Given 11/18/2021 9:03 PM EDT 10 mg Given 11/18/2021 8:48 PM EDT 5 mg fentaNYL (pf) (50 mcg/mL) multi-dose Given 11/18/2021 8:26 PM ED T 100 mcg injection Intravenous, PRN, Starting on 11/18/21 at 2025, Until 11/18/21 at 2141, Anesthesia Intra-op, Routine lactated ringers infusion New Bag 11/18/2021 8:21 PM EDT Intravenous, CONTINUOUS PRN, Starting on 11/18/21 at 2020, Until 11/18/21 at 2141, Anesthesia Intra-op ondansetron (pf) (Zofran) (2 mg/mL) inje ction Given 11/18/2021 9:03 PM EDT 4 mg Intravenous, PRN, Starting on 11/18/21 at 210, Until 11/18/21 at 2141, Anesthesia Intra-op, Routine PHENYLephrine in NS (PF) (PERRY-SYNEPHRINE) 0.8 Given 9:03 PM EDT 80 mcg mg/10 mL (80 mcg/mL) multi-dose injection Syrg Intravenous, PRN, Starting on 11/18/21 at 2035, Until 11/18/21 at 2141, Anesthesia Intra-op, Routine Given 11/18/2021 8:58 PM EDT 160 mcg Given 11/18/2021 8:51 PM EDT 160 mcg piperacillin-tazobactam (Zosyn) 4.5 g vial New Bag 11/18/2021 8:46 PM EDT 4.5 g attach to sodium chloride 0.9% 100 mL Mini-Bag Plus 4.5 g, Intravenous, ONCE, 1 dose, On 11/18/21 at 2015, Administer over 0.5 Hours, Warning Vesicant/Irritant Medication Do not administer or Y-site with lactated ringers., Indication for (Active or Suspected): Skin/Skin Structure propofoL (Diprivan) 10 mg/mL bolus injection Given 02/2022 8:26 PM EDT 200 mg (Anesthesia) Intravenous, PRN, Starting on 11/18/21 at 2025, Until 11/18/21 at 2141, Anesthesia Intra-op rocuronium (Zemuron) (10 mg/mL) multi-dose Given 11/18/2021 8:28 PM EDT 50 mg injection Intravenous, PRN, Starting on 11/18/21 at 2027, Until 11/18/21 at 2141, Anesthesia Intra-op, Routine ROpivacaine (Naropin) 0.2% (2 mg/mL) [facility] Given 11/18/2021 8:29 PM EDT 20 mLs Perineural, Starting on 11/18/21 at 2028, Until 11/18/21 at 2028, Anesthesia Intra-op, Routine sugammadex (Bridion) 100 mg/mL injection Given 11/18/2021 9:10 PM EDT 400 mg Intravenous, PRN, Starting on 11/18/21 at 2109, Until 11/18/21 at 2141, Anesthesia Intra-op, Routine vancomycin (Vancocin) 1.75 gram in sodium Given 11/18/2021 8:45 PM EDT 1.75 g chloride 0.9% 500 mL infusion 1,750 mg (1.75 g), Intravenous, ONCE, 1 dose, On 11/18/21 at 1814, Administer over 120 Minutes, Maximum infusion rate is 1 gram/hour. If flushing of the face, neck, upper body, arms, and/or back occurs decrease infusion rate by 50% to reduce the severity of symptoms. This medication may have an associated drug lab level. Please see MAR for scheduled level. Warning Vesicant/Irritant Medication , Indication for (Active or Suspected): Skin/Skin Structure documented in this encounter Care Teams Juvenile Justice Officer Relationship Specialty Start Date End Date Brian Fall APRN PCP - General Internal Medicine [birth year][address] [place] [phone] documented as of this encounter
--- OUTSIDE RECORDS SUMMARY | 2021-11-30 08:18 | XMS_ITS | Encounter Summary ---
:1955 Author Organization [facility] [place] [address] Care Team Providers Name Role Phone Brian Fall APRN Primary Care Provider Reason for Visit Reason Comments Leg Pain Auth/Cert Specialty Diagnoses / Procedures Referred By Contact Refer red To Contact Diagnoses Necrotizing fasciitis Cellulitis of leg, right Necrotic toes Infected [place] [address] Referral ID Status Reason Start Date Expiration Date Visits Requ ested Visits Authorized [id number] 1 1 Encounter Details Date Type Department Care Team Description 11/18/2021 Surgery Main Operating Room [facility]my Baker [facility]WRVU 5.82) [facility] ORTHOPAEDIC [place] [id number] [place] [id number] [phone] Social History Tobacco Use Types Packs/Day Years [...] Sign Reading Time Taken Comments Blood Pressure 143/75 11/18/2021 10:00 PM EDT Pulse 93 11/18/2021 10:00 PM EDT Temperature 36.1 ??C (97 ??F) 11/18/2021 9:24 PM EDT Respiratory Rate 15 11/18/2021 10:00 PM EDT Oxygen Saturation 96% 11/18/2021 10:00 PM EDT Inhaled Oxygen Concentration - - Weight - - Height - - Body Mass Index - - documented in this encounter Discharge Summaries Cyndy Padilla PA - 11/29/2021 3:47 PM EDT Images from the original note were not included. Discharge Summary Patient Name: Soledad Ramos Patient Age: 66 y.o. Language: Chadian Race: White Ethnicity: Not nor Admit date: 11/18/2021 Discharge date and time: 11/29/2021 Attending Physician: Jennifer Martinez MD Discharge Provider: NIEVES Hutton Follow-up Recommendations for Providers: - Continue methadone for chronic pain dose adjustments per [facility]. His last dose of methadone was 45 mg on 11/29/2021. Last QTC done on the same day was 494. Plan discussed with Dr. Garrison at [facility] to increase by 10 mg daily while monitoring daily EKG. - Patient is on IV ertapenem 1 g daily and IV daptomycin 700 mg daily through 01/06 for osteomyelitis. His IV infusions are set up with [facility] Mendoza in [facility], with his next appointment on 11/30 at 1 PM. - He will need PCP, ID, orthopedic follow-up Inpatient Provider Contact Information: For questions regarding this document or issues relating to this hospitalization on the Medical Service, please contact your inpatient physician through the [facility] Plate [facility] . Issues after hours and on weekends [...] ??? Patient has active durable power of trial attorney (DPOA) designee for healthcare ??? Methadone [...] DEBRIDEMENT SKIN, SUBCU, MUSCLE, BONE, LOWER EXTREMITY (VU 4.1) AMPUTATION, TRANSMETATARSAL ([facility] 12.71) 11/25/2021 Not Performed Procedure(s): DEBRIDEMENT SKIN, SUBCU, MUSCLE, BONE, LOWER EXTREMITY (WRVU 4.1) AMPUTATION, TRANSMETATARSAL ([facility] 12.71) 11/25/2021 Procedure(s): DEBRIDEMENT SKIN, SUBCU, MUSCLE, BONE, LOWER EXTREMITY (WRVU 4.1) AMPUTATION, TRANSMETATARSAL (WRVU 12.71) 11/25/2021 Procedure(s): DEBRIDEMENT SKIN, SUBCU, MUSCLE, BONE, LOWER EXTREMITY (WRVU 4.1) AMPUTATION, TRANSMETATARSAL ([facility] 12.71) 11/25/2021 Procedure(s): DEBRIDEMENT SKIN, SUBCU, MUSCLE, BONE, LOWER EXTREMITY (WRVU 4.1) AMPUTATION, TRANSMETATARSAL ([facility] 12.71) 11/25/2021 Other Major Procedures: N/A History of Presentation: As per admission H&P on 11/18: Soledad Ramos is a 66 y.o. 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 ?? He presented to [facility] where his labs were significant for a WBC 23k, Cr 1.1, Hgb 13, Glucose 117, Na 137, CRP unknown (not obtained). He was administered clindamycin and Vancomycin and [facility] the transfer [facility] and recommended transfer to [facility] ED for further work-up and evaluation for [...] asked hospital medicine to admit patient given hi s medical complexity and multiple co-morbidities. Hospital [...] to follow-up with daily infusion clinic - [facility] in [facility] tomorrow at 1 PM. The infectious disease providers well call you to set up a follow-up appointment towards the end of your IV antibiotic course. You also have an orthopedic follow-up at 2:30 PM on 12/11. You may continue with supf-blw-wwhfjqo Tylenol as needed for pain, not to exceed 4000 mg daily. We also resumed your methadone dose, you are now on 45 mg daily. You will need to see your [facility] provider for your next methadone dose, it [...] mg, he will need to follow-up at [facility] tomorrow to have your new dose set by them. Stop these medications: - Zofran Follow-up: Future Appointments Date Time Provider Department [facility] Rad [facility]ICS Your Inpatient Doctor: LORRIE LUNDBERG, VALENTINA ROGERS, JENNIFER FALCON Your Primary Care Provider: @PCPID@ For questions regarding this document or issues relating to this hospitalization on the Medical Service, please contact your inpatient physician through the [facility] . Issues after hours and on weekends [...] dressing on until follow-up. Call your doctor ([phone]) if you develop: 1. Fever greater than [...] your intake of calcium should be at [id number] a day and your vitamin D intake should be at least 800 IU per day. FOLLOW-UP APPOINTMENTS: 1. You will have follow-up appointments at [facility] as indicated in Future Appointment and Orders. 2. Please call Orthopedics at if you have any questions or concerns, as your follow-up is important to us. Future Appointments Date Time Provider Department Center 12/11/2021 1:00 PM [facility] DX ROOM 2 Xray [facility] Rad 12/11/2021 2:30 PM Marion Tavera APRN [facility]TH 3C [facility] 01/15/2022 12:[address] [facility] [address] [facility] RAD CT [facility] Rad SAME DAY PROGRAM POST-OPERATIVE INSTRUCTIONS [...] 24 hours, please call the Anesthesiology Department: [phone] Shortness of breath: If you have severe shortness of breath that seems to go on and on, please go tothe nearest ER (emergency room). If a nerve block lasts longer than 48 hours, take action. If the nerve block does not wear off within 48 hours, please call the Anesthesiology Department: [phone] Protect the part of your body that [...] the Anesthesiology Department with concerns or questions: [phone] After hours: Call the hospital high density finishing operator and ask for the anesthesiologist (deb talbot) electrification adviser: [phone] Updated: 03/19/21 If you have questions or concerns: Friday through Friday, 8 AM - 5 PM, please call Sammy Baker MD's office at . If it is after 5 PM or on the weekend, please call and ask to speak with the Orthopedic resident on-call. Substance Use Treatment, Harm-Reduction, and Relapse Prevention Resources Residential Treatment: [address] [address] Intensive Outpatient Program: [address] [address] Individual Counseling: [address] [address] [facility] [address] [place] [address] x6 Anne-Marie Tang, [address] [address] Offers EMDR Therapy You may also search www.psychologytoday.com or Snapvine for therapists in your area. EMDR Therapy [...] completed in fewer sessions than other psychotherapies. www.emdria.org/loxnc-vips-beedoan/ Medication Assisted Therapy: [address] [place] [address] [place] [address] Peer Support Groups Alcoholics Anonymous (AA) [place]: , www.BL Healthcareaa.net Narcotics Anonymous (NA) [place]: , www.Compassoftana.org Community Peer Support Center [address] [place] [address] Online AA and NA Meetings AA, NA, Refuge Recovery, SMART Recovery www.Harbor Payments AA Video Meetings www.aa-intergroup.org/directory_audio-video.php AA Text Chat Meetings www.aa.intergroup.org/directory.php NA Video Meetings www.virtual-na.org/meetings NA Text Chat Meetings Www.eduPadaloneclub.org SMART Recovery Meetings via Zoom 5:00-6:00pm, free and open to all To join Zoom meetin. Visit www.Educerus 2. Click on calendar on top of toolbar 3. Find the correct meeting date and time 4. Click the zoom link and enter password provided Additional Substance Use Treatment Resources Www.vtaddictionservices.org www.healthvermont.gov/alcohol-drugs www.uyljoqz738.org/ (Search for Substance Use) www.psychologyXM Radio.Loom Decor/ Www.rethinkingdrinking.niaaa.nih.gov/ www.samhsa.gov/jjkbrizepj-mfkamheo-blcdjgpru/fhwkwvzbczaq-ejzfipe-cpbc/treatment -practitioner-otr van cdl truck driver Mental Health Crisis National Mental Health Crisis Line: Dial [address].[facility].gov/find-help/989 Harm-Reduction Resources Mobile operations. For more information about receiving supplies: including syringe exchange, fentanyl test strips, and naloxone, or to schedule an appointment: [place] clients call and leave a message for Yoana (ext. 105) or Zbigniew Quigley (ext. 104). [place] clients call to speak with Zbigniew Waddell [...] is being approved. Online Stress Reduction Resources www.Colabo/videos-features/videos/jzmwjsssy-nnkgvyzno-7-7-8-breath/ www.Notonthehighstreet.org/2013/sqtwqekcn-ixnmizljo-kwrmxag-moment/ www.headsSouq.comceAugure/ www.mindful.org/ www.freeCollibra.org/ Employment Agency Working [address] [place] [address] [email or web address] Providing an opportunity for successful employment and recovery by empowering individuals to manage challenges because of substance use addiction and past convictions. YOU ARE SCHEDULED FOR A FOLLOW UP APPOINTMENT WITH YOUR PRIMARY CARE PROVIDER ON 12/10/2021 AT 9:30AM Future Appointments and Orders Future Appointments and Orders Future Appointments Provider Department Dept Phone 12/11/2021 1:00 PM [facility] DX ROOM 2 XRay at [facility] Arrive at: Title 1 Tutor Area 3T [phone] Please go to Title 1 Tutor Area 3T ([facility] Location). 12/11/2021 2:30 PM Marion Tavera APRN Orthopaedics at [facility] Arrive at: Title 1 Tutor Area 3C [phone] 01/15/2022 12:[address] [facility] [address] CT Scan at [facility] Arrive at: [facility]Z RADIOLOGY [phone] Future Orders Complete By Expires XR Foot Min 3 views Right (Generic) [45971 Custom] 12/11/2021 05/30/2022 Process Instructions: Scheduling Instructions: Comments: Questions: Where will study be performed?: [facility] Radiology Portable exam?: Reason for exam and clinical history: s/p 1st toe amp Clinical information / hansen questions for radiologist: Stat read required?: Date of injury if applicable: Requested Time: OPAT: Order / Recommendation for Post Discharge IV Antibiotic Management [DUC926 CPT(R)] As directed Process Instructions: If no progress note charted, please enter Clinical details in comments. Scheduling Instructions: Comments: Please Fax all results to: OPAT Program Infectious Disease Section [place], [place] [address] FAX: After hours, please contact the Infectious Disease Physician electrification adviser at . If this order was signed greater than 72 hours prior to [facility] discharge, please call to confirm the accuracy [...] Saline then 3 ml heparin (10 units/ml) [facility] for medication administration/city superintendent and catheter care/maintenance authorized. PICC Dressing Change weekly and PRN Please use CHG or Bio Patch RNs: Please care for PICC line including dressing changes weekly and prn. Please draw labs every Friday and PRN and [facility] at [phone]. Please draw labs off PICC line. See OPAT order for lab draw details. RN visits for IV ABX teaching as needed and ongoing assessment. Catheter Occlusion Management Instill reconstituted Cathflo 2mg per instillation (based on the volume of the catheter lumen). May repeat x1 per occlusion incident. Questions: ID Diagnosis: Cellulitis/Polymicrobial diabetic foot infection, Osteomyelitis of right great toe; s/p reamputation through [facility] 11/25/21 Microorganisms being treated: Coagulase negative staph, [...] Instructions: Scheduling Instructions: Comments: Soledad Ramos [address] [facility] [phone] ([facility]) No relevant phone numbers on file. Diagnosis: [...] WHEELED WALKER (E0143) Referral for Outpatient Antibiotics [QAU1171 CPT(R)] As directed Process Instructions: Scheduling Instructions: Comments: Follow OPAT orders Questions: Vendor / contact information: [place] Patient location post discharge: Home Service requested: Home ABX with supplies / PICC line Start date: Responsible MD post discharge contact info: Referral to Home Health [REF34 Custom] As directed Process Instructions: If no progress note charted, please enter Clinical details in comments. Scheduling Instructions: Comments: Please evaluate Soledad Ramos for admission to Home Health. [address] [facility] [phone] (home) Date of : 1955 DOCUMENTATION FOR VNA SERVICES (INCLUDING THOSE PATIENTS WITH MEDICARE COVERAGE REQUIRING HOME VNA SERVICES AND/OR HOSPICE SERVICES) PATIENT'S LOCATION: Soledad Ramos [address] [facility] [phone] (home) Cell: No relevant phone numbers on file. Public Health Doctor's Name: Self / In discussion with the attending physician, it is certified that this patient is under their care and that they, or a Nurse Practitioner,Clinical Nurse specialist or Physician Gatekeeper who is working directly with them, had [...] AGENCY: [facility] and [address] [address] PHONE: [phone] FAX: [phone] Start of care: Day of discharge FOR [...] be obtained from this patient'sPCP: Brian Fall, BEAM DYER RECESSED VAT [address] [facility] [phone] All VNA agencies which cover the area [...] dressing on until follow-up. Call your doctor ([phone]) if you develop: Fever greater than 100.5 [...] your intake of calcium should be at [id number] a day and your vitamin D intake should be at least 800 IU per day. FOLLOW-UP APPOINTMENTS: 1. You will have follow-up appointments at [facility] as indicated in Future Appointment and Orders. 2. Please call Orthopedics at if you have any questions or concerns, as your follow-up is important to us. Future Appointments Date Time Provider Department Center 12/11/2021 1:00 PM [facility] DX ROOM 2 MH Xray [facility] Rad 12/11/2021 2:30 PM Marion Tavera APRN [facility]TH 3C [facility] 01/15/2022 12:[address] [facility] [address] [facility] RAD CT [facility] Rad SAME DAY PROGRAM POST-OPERATIVE INSTRUCTIONS [...] 24 hours, please call the Anesthesiology Department: [phone] Shortness of breath: If you have severe shortness of breath that seems to go on and on, please go tothe nearest ER (emergency room). If a nerve block lasts longer than 48 hours, take action. If the nerve block does not wear off within 48 hours, please call the Anesthesiology Department: [phone] Protect the part of your body that [...] the Anesthesiology Department with concerns or questions: [phone] After hours: Call the hospital high density finishing operator and ask for the anesthesiologist (deb talbot) electrification adviser: [phone] Updated: 03/19/21 If you have questions or concerns: Friday through Friday, 8 AM - 5 PM, please call Sammy Baker MD's office at . If it is after 5 PM or on the weekend, please call and ask to speak with the Orthopedic resident on-call. Substance Use Treatment, Harm-Reduction, and Relapse Prevention Resources Residential Treatment: [facility] [address] [place] [address] [address] Intensive Outpatient Program: [facility] [address] [place], [place] [id number] Individual Counseling: [place] [address] [place] [address] [facility] [address] [place] [address] x6 Anne-Marie Tang[address] [address] Offers EMDR Therapy You may also search www.[employer] Inc.Loom Decor or Snapvine for therapists in your area. EMDR Therapy [...] completed in fewer sessions than other psychotherapies. www.emdria.org/tmyri-tdxa-dioywjv/ Medication Assisted Therapy: [address] [place] [address] [place] [address] Peer Support Groups Alcoholics Anonymous (AA) [place]: , www.nhaa.net Narcotics Anonymous (NA) [place]: , www.gmana.org Community Peer Support Center [address] [address] Online AA and NA Meetings AA, NA, Refuge Recovery, SMART Recovery www.Harbor Payments AA Video Meetings www.aa-intergroup.org/directory_audio-video.php AA Text Chat Meetings www.aa.intergroup.org/directory.php NA Video Meetings www.virtual-na.org/meetings NA Text Chat Meetings Www.eduPadaloneclub.org SMART Recovery Meetings via Zoom 5:00-6:00pm, free and open to all To join Zoom meeting: Visit wwwArt Circle Click on calendar on top of toolbar Find the correct meeting date and time Click the zoom link and enter password provided Additional Substance Use Treatment Resources Www.UCROOddictionservices.org www.healthverZoomt.gov/alcohol-drugs www..Corso12/ (Search for Substance Use) www.MobGold/ Www.rethinkingdrinking.niaaa.nih.gov/ www.samhsa.gov/jeyuffbhmq-wdgzeucj-iielreqjd/wywseaiergrz-knaaary-yfce/treatment -practitioner-otr van cdl truck driver Mental Health Crisis National Mental Health Crisis Line: Dial 988 www.samhsa.gov/find-help/988 Harm-Reduction Resources Mobile operations. For more information about receiving supplies: including syringe exchange, fentanyl test strips, and naloxone, or to schedule an appointment: [place] clients call and leave a message for Yoana (ext. 105) or Zbigniew Quigley (ext. 104). [place] clients call to speak with Zbigniew Waddell [...] is being approved. Online Stress Reduction Resources www.LatinComics.Loom Decor/videos-features/videos/tssxqdfpf-hdxvcigdb-1-7-8-breath/ www.Notonthehighstreet.org/2013/mhzgqajoy-cigcrdzmj-wttuipb-moment/ www.Arctic Diagnostics/ www.mindful.org/ www.freeCollibra.org/ Employment Agency Working [place] [address] [facility] [address] [place] [address] rom@[employer] Providing an opportunity for successful employment and [...] to follow-up with daily infusion clinic - [facility] in [facility] tomorrow at 1 PM. The infectious disease providers well call you to set up a follow-up appointment towards the end of your IV antibiotic course. You also have an orthopedic follow-up at 2:30 PM on 12/11. You may continue with qkcr-mmi-vqoairr Tylenol as needed for pain, not to exceed 4000 mg daily. We also resumed your methadone dose, you are now on 45 mg daily. You will need to see your [facility] provider for your next methadone dose, it [...] mg, he will need to follow-up at [facility] tomorrow to have your new dose set by them. Stop these medications: - Zofran Follow-up: Future Appointments Date Time Provider Department [facility] Your Inpatient Doctor: LORRIE LUNDBERG HANNAH L BHISE, JENNIFER FALCON Your Primary Care Provider: @PCPID@ For questions regarding this document or issues relating to this hospitalization on the Medical Service, please contact your inpatient physician through the [facility] Plate Maker . Issues after hours and on weekends [...] mild cognitive impairment presented 11/18/21??for admission to [facility]??(transferred from [facility] ED) at the request of the orthopedic surgery service for necrotizing soft tissue infection of the right foot/great toe. A&Ox3-4, forgetful but easily reoriented. Anxious, Ativan given once w/ relief. VSS on RA. Telemetry unremarkable, HR 70-80s NSR. Lungs diminished throughout, denies SOB/CUNHA & refusing nebs at this time. RUE PICC c/d/i, placed for assisted abx treatment. All meds given per JUL. [...] ??? Patient has active durable power of trial attorney (DPOA) designee for healthcare ??? Methadone [...] spent >30 minutes (Day of Discharge Code 52488) involved in the final examination of the [...] cognitive impairment presenting for admission from the [facility] (transferred from [facility] ED) at the request of the [...] [facility] Pt was pleasant and participated in [...] a PT perspective to discharge home with 24/7 supervision/CGA x 2 on stairs and CGA [...] plan as stated. Time IN / OUT: 7475-1445 Total Minutes, Physical Therapy: 25 Billing Code: Functional activity x 2 Radha Pierre, PT Pager: [phone] Physical Therapy Inpatient Rehabilitation Department Malinda Díaz [...] Events: - Unable to reach provider at [facility] as they are currently sick and will [...] output data in the 24 hours ending 11/28/211751 Patient Vitals for the past 168 hrs: [...] Remarkable for the following: LABS: Recent Labs 11/28/2131411/26/2165511/23/21 162 WBC 12.8* 12.0* 13.3* HGB 13.9 13.6* 15.2 HCT 41.6 40.5 45.6 PLATELET 504* 418* 389* Recent Labs 11/28/2131411/26/21 0656 11/23/21 1628 NA 141 143 144 K 2.9* 3.6 3.2* CL 102 109* 105 CO2 23 BUN 14 8* 6* CREATININE 1.49 1.20 1.28 No results for input(s): AST, ALT, ALKPHOS, BILITOT, BILIDIR in the last 168 hours. Recent Labs 11/28/2131411/26/21 0656 11/23/21 1628 11/22/21 1807 11/22/21 0829 [...] interpretation Confirmed by fellow MD Devorah, Debra ([id number]) on 11/28/2021 11:56:35 AM Confirmed by MD [...] who have questions please contact the health healthcare consulting manager that requested your imaging first. Foot Min [...] who have questions please contact the health healthcare consulting manager that requested your imaging first. PICC Placement [...] who have questions please contact the health healthcare consulting manager that requested your imaging first. Inpatient Medications: [...] cognitive impairment presented 11/18/21 for admission to [facility] (transferred from [facility] ED) at the request of the [...] withdrawal-suspected #Prolonged QTc - Call patient's clinic ([facility], ) in AM to confirm 90 mg [...] Tubes/ Drains Wound Vac DVT prophylaxis Lovenox PT/OT/PILE DRIVING SUPERVISOR ordered Wound care Per surgical team at this time Anticipated Disposition home with home health, home with supervision (pending progress made while hospitalized) Team Pager (MD Coverage 02/12): [phone] Family Update At bedside 11/28 PCP LISA Levi PA 11/28/2021 Elli Obrien, RN - 11/28/2021 12:17 PM EDT Office of Care Management (OCM /Kassy (ISABEL)Discharge planning ) Service :Med Pager #[phone] e-DH reviewed. [facility] Patient plan of care discussed with Team and Nursing to assessment for continuing care and dischargeneeds. [facility]: 10 DECISION MAKER: Attempt Cardiopulmonary Resuscitation [...] planning. Elli Obrien RN CM Pager # [phone] Grace Montero Aida, OT - 11/28/2021 11:31 AM EDT Occupational [...] Occupational Therapy: 34 (SCHM x 2) Pager: [phone] Grace Montero OT Occupational Therapy Rehabilitation Department Claudia Long RN - 11/28/2021 6:46 AM EDT Illness Severity [x] Stable [] Watcher [] Unstable Patient Summary Reason for admission: Rapidly progressing R great toe infection requiring amputation. ETOH withdrawal Relevant PMH: ETOH use, peripheral neuropathy, cirrhosis, L 4th+5th toe amps, methadone dependence, COPD, Hep C, HTN, HLD Significant 24 hour events: 11/27PM: Transferred from [facility]. Report taken from [facility] at 2340. A/O x4, afebrile, VSS on [...] with Ax2 w/ FWW. This RN and DISCHARGE RN caught him before he fell over. Chemo plan & supportive medication: n/a Baseline Weight: na/ Most recent weight: Weight: 91.9 kg (202 lb 11.2 oz) (11/26/21922) Action List IV Abx: Daptomycin & Ertapenem. Pain management-Scheduled Tylenol, Methadone.& Gabapentin. PRN Flexeril, Dilaudid- scale. Wound care-Right foot--big toe RLE: NWB Telemetry Consults: Infectious Disease, OPAT Discharge Plan: Possibly 11/28/21 Home meds in Rx [] Belongings in safe [] Carissa Cordova RN - 11/27/2021 6:49 PM EDT OUTCOME EVALUATION NOTE: OUTCOME SUMMARY: I assumed care for this patient from [id number]. Patient ambulating to bathroom with 1 assist [...] who have questions please contact the health healthcare consulting manager that requested your imaging first. Foot Min [...] who have questions please contact the health healthcare consulting manager that requested your imaging first. PICC Placement [...] who have questions please contact the health healthcare consulting manager that requested your imaging first. Inpatient Medications: [...] cognitive impairment presented 11/18/21 for admission to [facility] (transferred from [facility] ED) at the request of the [...] withdrawal-suspected #Prolonged QTc - Call patient's clinic ([facility], ) in AM to confirm 90 mg [...] Tubes/ Drains Wound Vac DVT prophylaxis Lovenox PT/OT/PILE DRIVING SUPERVISOR ordered Wound care Per surgical team at this time Anticipated Disposition home with home health, home with supervision (pending progress made while hospitalized) Team Pager ( Coverage 02/12): [phone] Family Update At bedside 11/25 PCP LISA [...] cognitive impairment presenting for admission from the [facility] (transferred from [facility] ED) at the request of the [...] understanding. Pt will need reinforcement. Assessment: Soledad Serranomichael was seen today [facility] physical [facility] Pt was pleasant and participated in [...] recommend discharge home when medically ready with 24/ supervision (pending ability to do the stairs [...] plan as stated. Time IN / OUT: 3195-9724 Total Minutes, Physical Therapy: 29 Billing Code: Functional activity x 2 Radha Pierre, IMCKY Pager: [phone] Physical Therapy Inpatient Rehabilitation Department Judit Spencer [...] 11/27, I spent 30 minutes in a grm-[id number]-face encounter arranging the patient to receive home [...] Patient screened for hospital length of stay. Research Pharmacist connected with patient and over the phone.Per [...] answered at this time Luz Wright, GABRIELLA [phone] Elli Obrien RN - 11/27/2021 1:01 PM EDT The Patient has been provided a list of Home Health Agencies/DME vendors which serve their preferredgeographic area. A letter describing our affiliations was reviewed with them and they were educated about their right to choose where referrals are placed. Provided patient with [facility] Star Quality Rating for Home care Patient requests referral to : [facility] [place] [address] [place], [place] or [facility] Intake office: tel: [phone] [place], [place] Office [place], [place] Office Expected date of discharge: 11/30/2021 Referral routed to the Work Force Advisor for matching with agency/vendor and to provide [...] reports that he normally gets Methadone from [facility] and has for years, takes 90mg daily. He denies any fever or chills, no pain to hisright foot. Don reports that diarrhea started last night, has not had associated abdominal pain. He's gone about 3-4 times since last night and thinks that it's because he's not taking his methadone. O: Vitals Flowsheet Row ED to Hosp-Admission (Current) from 11/18/2021 in 1 [facility] Weight 91.9 kg (202 lb 11.2 [...] 4th ray amputation), who was admitted to [facility] on 11/18 from [facility] with a R great toe necrotizing [...] MD Infectious disease fellow Green team pager [phone] I have seen the patient and reviewed [...] No desaturations. Nebulizer given with no effect. notified. Home lasix restarted. No further complaints. [...] is buy a big bottle of bourbon. computerized mill recorder notified to ensure that BIT is following. [...] Padilla PA - 11/26/2021 2:14 PM EDT [facility] Medicine Daily Progress Note Admit Date: [...] Appropriate mood and affect. Studies reviewed in eD. Remarkable for the following: LABS: Recent Labs [...] Results called to and read back by S Mamadou 11/18/21 23:16:50 VM * No Neutrophils seen. [...] 2030 hrs. Preliminary report signed by: Mario Capm at 11/18/2021 9:26 PM I have personally [...] who have questions please contact the health healthcare consulting manager that requested your imaging first. Foot Min [...] who have questions please contact the health healthcare consulting manager that requested your imaging first. Inpatient Medications: [...] cognitive impairment presented 11/18/21 for admission to [facility] (transferred from [facility] ED) at the request of the [...] #Acute alcohol withdrawal-suspected - Call patient's clinic ([facility], ) in AM to confirm 90 mg [...] Tubes/ Drains Wound Vac DVT prophylaxis Lovenox PT/OT/PILE DRIVING SUPERVISOR ordered Wound care Per surgical team at this time Anticipated Disposition home with home health, home with supervision (pending progress made while hospitalized) Team Pager ( Coverage 02/12): [phone] Family Update At bedside 11/25 PCP LISA Levi PA 11/26/2021 Winston Grace A, OT - 11/26/2021 9:30 AM EDT Occupational [...] 12.71) performed by Geovanna Lewis MD at [facility] MAIN OR ??? PRO AMPUTATION FOOT, TRANSMETATARSAL Right 11/25/2021 AMPUTATION, TRANSMETATARSAL (WRVU 12.71) performed by Jarad Flores MD at [facility] MAIN OR ??? PRO AMPUTATION METATARSAL+TOE, SINGLE Right 11/23/2021 AMPUTATION, TRANSMETATARSAL TOE, ONE TOE (WRVU 6.64) performed by Jarad Flores MD at [facility] MAIN OR ??? PRO AMPUTATION TOE, MT-P JT Right 11/18/2021 AMPUTATION TOE, METATARSO-PHALANGEAL JOINT (WRVU 5.82) performed by Sammy Baker MD at [facility] [place] ? ? PRO DEBRIDEMENT BONE MUSCLE &/FASCIA 20 SQ CM/< Right 11/25/2021 DEBRIDEMENT SKIN, SUBCU, MUSCLE, BONE, LOWER EXTREMITY (WRVU 4.1) performed by Jarad Flores MD [facility] MAIN OR ??? PRO TOTAL KNEE ARTHROPLASTY Left 12/13/2015 @TOTAL KNEE ARTHROPLASTY performed by Gordon Mallory MD at [facility] MAIN OR ??? PRO UPPER GI ENDOSCOPY, DIAGNOSTIC Bilateral 08/17/2015 EGD, UPPER GI ENDOSCOPY performed by Trev Hong MD at [facility] ENDOSCOPY ??? REVISION TOTAL HIP ARTHROPLASTY [...] instrument andmeasurable assessment of functional outcome. Pager: [phone] Grace Montero OTR/L Occupational Therapy Rehabilitation Department [...] ??? Patient has active durable power of trial attorney (DPOA) designee for healthcare ??? Methadone [...] sign off at this time, please page [phone] with new questions. ?? Activity: NWB RLE DVT prophylaxis: rec lovenox Closure: Primary Closure - skin incision is completely closed without any wires, korey, drains or other devices Antibiotics: currently flagyl and ceftriaxone per primary Harley Raymond MD 11/26/2021 Future Appointments Date Time Provider Department Center 01/15/2022 12:00 PM [facility] CT [address] [facility] RAD CT [facility] Rad Valerie Adams RN - 11/25/2021 5:32 PM EDT OUTCOME EVALUATION NOTE: ?? OUTCOME SUMMARY: ?? Assumed care of patient. VSS on RA. AOx3, disoriented to time. Pt appropriate, cooperative, and verypleasant. Pt went to OR today for I&D and additional TMA. AVSS. Dressing CDI.Tolerated procedurewell. Oriented upon return. Pt c/o [phone] throbbing RLE pain. Pain management plan discussed [...] 40.6 PLATELET 389* 285 216 Recent Labs 11/23/218 11/21/21 0838 11/20/21 0459 NA 144 141 [...] last 720 hours. Recent Labs 11/18/21205111/23/21 1306 11/25/21 0900 GRAMSTAIN Many Neutrophils seen [...] who have questions please contact the health healthcare consulting manager that requested your imaging first. Foot Min [...] who have questions please contact the health healthcare consulting manager that requested your imaging first. Inpatient Medications: [...] cognitive impairment presented 11/18/21 for admission to [facility] (transferred from [facility] ED) at the request of the [...] #Acute alcohol withdrawal-suspected - Call patient's clinic ([facility], ) in AM to confirm 90 mg [...] Tubes/ Drains Wound Vac DVT prophylaxis Lovenox PT/OT/PILE DRIVING SUPERVISOR ordered Wound care Per surgical team at this time Anticipated Disposition TBD Team Pager (MD Coverage 02/12): [phone] Family Update At bedside 11/25 PCP LISA [...] ??? Patient has active durable power of trial attorney (DPOA) designee for healthcare ??? Methadone [...] Time Provider Department Center 01/15/2022 12:[address] [facility] [address] [facility] [address] CT [facility] Rad Katey Ruffin RN - 11/25/2021 [...] pain unchanged, coping better however. Paged medicine BEAM DYER RECESSED VAT re: restarting home methadone, potential APS consult. [...] ??? Patient has active durable power of trial attorney (DPOA) designee for healthcare ??? Methadone [...] Time Provider Department Center 01/15/2022 12:[address] [facility] [address] [facility] RAD CT [facility] Rad Patricia Villafana APRN - 11/24/2021 3:18 PM EDT Hospital Medicine [...] SQ dilaudid - Will be NPO at [place] for planned I+D with ortho on 11/25, [...] who have questions please contact the health healthcare consulting manager that requested your imaging first. Foot Min [...] who have questions please contact the health healthcare consulting manager that requested your imaging first. Inpatient Medications: [...] cognitive impairment presented 11/18/21 for admission to [facility] (transferred from [facility] ED) at the request of the [...] #Acute alcohol withdrawal-suspected - Call patient's clinic ([facility], ) in AM to confirm 90 mg [...] Tubes/ Drains Wound Vac DVT prophylaxis Lovenox PT/OT/PILE DRIVING SUPERVISOR ordered Wound care Per surgical team at this time Anticipated Disposition TBD Team Pager ( Coverage 02/12): [phone] Family Update At bedside 11/22 PCP Brian LISA Fall APRN 11/24/2021 Valerie Adams RN - 11/24/2021 [...] Hands on Surveillance [continuous indirect monitoring]: Call rmoero within reach. Purposeful rounding. Room near nursing [...] ??? Patient has active durable power of trial attorney (DPOA) designee for healthcare ??? Methadone [...] Time Provider Department Center 01/15/2022 12:[address] [facility] [address] [facility] RAD CT [facility] Rad Jarad Flores MD - 11/23/2021 [...] ??? Patient has active durable power of trial attorney (DPOA) designee for healthcare ??? Methadone [...] chloride 0.9% 50 mL Mini-Bag Plus ??? [MAR Hold] hydrOXYzine (Atarax) tablet 25 mg ??? [MAR Hold] pantoprazole EC (Protonix) tablet 40 mg ??? [MAR Hold] sodium chloride 0.9 % (flush) (BD [...] Time Provider Department Center 01/15/2022 12:[address] [facility] [address] [facility] RAD CT [facility] Rad Patricia Villafana, LISA - 11/23/2021 [...] who have questions please contact the health healthcare consulting manager that requested your imaging first. Inpatient Medications: Scheduled ??? cefTRIAXone 2 g Intravenous Q24H ??? metroNIDAZOLE 500 mg Oral TID ??? lisinopriL 40 mg Oral Daily ??? thiamine 100 mg Oral Daily ??? folic acid 1,000 mcg Oral Daily ??? PHENobarbitaL 0.24 mg/kg/dose ([place]) Oral BID ??? pantoprazole EC 40 mg [...] cognitive impairment presented 11/18/21 for admission to [facility] (transferred from [facility] ED) at the request of the [...] #Acute alcohol withdrawal-suspected - Call patient's clinic ([facility], ) in AM to confirm 90 mg [...] Tubes/ Drains Wound Vac DVT prophylaxis Lovenox PT/OT/PILE DRIVING SUPERVISOR ordered Wound care Per surgical team at this time Anticipated Disposition TBD Team Pager ( Coverage 02/12): [phone] Family Update At bedside 11/22 PCP LISA [...] protocol. NPO maintained. Plan for patient to [facility] OR today for I&D and ?line placement. BP remains elevated, team aware. Report called to OR. Patient to be moved to private room upon return to unit. Report given to VINCENT Lozada. Loly Obiren RN - 11/23/2021 1:55 PM EDT 1338- [...] on Friday to evaluate as appropriate. Pager: [phone] CHRISTINA LEONARD OT 11/23/2021 Occupational Therapy Rehabilitation [...] ??? Patient has active durable power of trial attorney (DPOA) designee for healthcare ??? Methadone [...] Time Provider Department Center 01/15/2022 12:00 PM [facility] CT [address] [facility] RAD CT [facility] Rad Palomo Archer RN - 11/23/2021 [...] infusion. Please page the PICC room at [phone] or call [phone] between the hours of 7:00am and 5:30pm Friday-Friday for PICC line placement/scheduling. After hours the Vascular Access Service can be reached at anytime on pager [phone] PICC requests for the following [...] reach, frequent checks made. Disruptive to neighbor, charger made aware. Working on getting patient [...] and complete OT evaluation when appropriate. Pager: [phone] Laurel Em OT 11/22/2021 Occupational Therapy Rehabilitation [...] who have questions please contact the health healthcare consulting manager that requested your imaging first. Inpatient Medications: Scheduled ??? vancomycin 1,250 mg Intravenous Q12H ??? Vancomycin Level - MAR Order Reminder NOT APPLICABLE Once ??? lisinopriL 40 mg Oral Daily ??? thiamine 100 mg Oral Daily ??? folic acid 1,000 mcg Oral Daily ??? PHENobarbitaL 0.48 mg/kg/dose ([place]) Oral BID Followed by ??? [START ON 11/23/2021] PHENobarbitaL 0.24 mg/kg/dose ([place]) Oral BID ??? piperacillin-tazobactam 3.375 g Intravenous [...] cognitive impairment presented 11/18/21 for admission to [facility] (transferred from [facility] ED) at the request of the orthopedic surgery service for necrotizing soft tissue infection of the right foot/great toe. ?? 11/22- Pt alert and attempting to use the bed feliciaon. Reports frustration being in the hospital. Cooperative, [...] #Acute alcohol withdrawal-suspected - Call patient's clinic ([facility], ) in AM to confirm 90 mg [...] Tubes/ Drains Wound Vac DVT prophylaxis Lovenox PT/OT/PILE DRIVING SUPERVISOR ordered Wound care Per surgical team at this time Anticipated Disposition TBD Team Pager (MD Coverage 02/12): [phone] Family Update Left VM for spouse 11/22 [...] ??? Patient has active durable power of trial attorney (DPOA) designee for healthcare ??? Methadone [...] dry Antibiotics: Per primary, continue vanco/clinda Uche Whalye MD 11/22/2021 Future Appointments Date Time Provider Department Center 01/15/2022 12:00 PM [facility] CT [address] [facility] RAD CT [facility] Rad Antoni Hurt MD - 11/21/2021 [...] in the last 720 hours. Recent Labs 11/18/212 GRAMSTAIN Many Neutrophils seen Many Gram Positive [...] who have questions please contact the health healthcare consulting manager that requested your imaging first. Inpatient Medications: Scheduled ??? [START ON 11/22/2021] Vancomycin Level - MAR Order Reminder NOT APPLICABLE Once ??? lisinopriL 40 mg Oral Daily ??? thiamine 100 mg Oral Daily ??? folic acid 1,000 mcg Oral Daily ??? PHENobarbitaL 0.96 mg/kg/dose ([place]) Oral BID Followed by ??? [START ON 11/22/2021] PHENobarbitaL 0.48 mg/kg/dose ([place]) Oral BID Followed by ??? [START ON 11/23/2021] PHENobarbitaL 0.24 mg/kg/dose ([place]) Oral BID ??? piperacillin-tazobactam 3.375 g Intravenous [...] cognitive impairment presented 11/18/21 for admission to [facility] (transferred from [facility] ED) at the request of the [...] #Acute alcohol withdrawal-suspected - Call patient's clinic ([facility], ) in AM to confirm 90 mg [...] Tubes/ Drains Wound Vac DVT prophylaxis Lovenox PT/OT/PILE DRIVING SUPERVISOR ordered Wound care Per surgical team at this time Anticipated Disposition TBD Team Pager ( Coverage 02/12): [phone] Family Update Spouse contacted and updated via [...] to follow up for evaluation . Pager: [phone] CHRISTINA LEONARD OT 11/21/2021 Occupational Therapy Rehabilitation [...] ??? Patient has active durable power of trial attorney (DPOA) designee for healthcare ??? Methadone [...] Time Provider Department Center 01/15/2022 12:00 PM [facility] CT [address] [facility] RAD CT [facility] Rad Stephanie Pate RN - 11/20/2021 [...] Remarkable for the following: LABS: Recent Labs 11/20/21 04511/19/21 0556 WBC 10.7* 13.1* HGB 13.5* 12.7* [...] who have questions please contact the health healthcare consulting manager that requested your imaging first. Inpatient Medications: [...] cognitive impairment presented 11/18/21 for admission to [facility] (transferred from [facility] ED) at the request of the [...] #Acute alcohol withdrawal-suspected - Call patient's clinic ([facility], ) in AM to confirm 90 mg [...] Tubes/ Drains Wound Vac DVT prophylaxis Lovenox PT/OT/PILE DRIVING SUPERVISOR ordered Wound care Per surgical team at this time Anticipated Disposition TBD Team Pager (MD Coverage 02/12): [phone] Family Update Spouse contacted and updated via [...] ??? Patient has active durable power of trial attorney (DPOA) designee for healthcare ??? Methadone [...] Time Provider Department Center 01/15/2022 12:00 PM [facility] CT [address] [facility] RAD CT [facility] Rad Stephanie Pate RN - 11/19/2021 [...] tomorrow. OT to follow up Friday. Pager: [phone] CHRISTINA LEONARD OT 11/19/2021 Occupational Therapy Rehabilitation [...] who have questions please contact the health healthcare consulting manager that requested your imaging first. Inpatient Medications: [...] cognitive impairment presented 11/18/21 for admission to [facility] (transferred from [facility] ED) at the request of the [...] #post-op pain control - Call patient's clinic ([facility], ) in AM to confirm 90 mg [...] MIVF PIV Tubes/ Drains DVT prophylaxis enoxaparin PT/OT/PILE DRIVING SUPERVISOR consulted Wound care Anticipated Disposition TBD Team Pager ( Coverage 02/12): [phone] Family Update Family updated at bedside 11/19 PCP LISA Levi PA 11/19/2021 Estefani Juarez RN - 11/19/2021 11:58 AM EDT Images from the original note were not included. 11/19/21 115 [REMOVED] Peripheral IV Line - Single Lumen 11/18/211806 cephalic vein (lateral side of arm), left 20 gauge Removal Date/Time: 11/19/21 115 Placement Date/Time: 11/18/211806 Location: cephalic vein (lateralside of arm), left Device: [id number] catheter system Technique: Anatomical Landmarks Ultrasound Imaging: [...] instilled;catheter/needle/device removed;extremity elevated;provider notified Infiltration/Extravasation Scale Soledad Alvin Richard [id number] 149/149-A Infiltration appearance: Requested to evaluate possible [...] measuring tape and identifier in the photo) SUPERVISOR DAIRY SANITATION CARING FOR THIS PATIENT WILL CONTINUE TO [...] cognitive impairment presenting for admission from the [facility] (transferred from [facility] ED) at the request of the [...] L 4th ray amp for osteo, 03/10/2020 Patelaana maría 03/10/2020 ??? S/P L TKA 12/13/15 Dr. Mallory 12/13/2015 ??? SDH (subdural hematoma) 05/07/2019 Past Surgical History: Procedure Laterality Date ??? PRO AMPUTATION FOOT, TRANSMETATARSAL Left 03/10/2020 AMPUTATION, TRANSMETATARSAL (WRVU 12.71) performed by Geovanna Lewis MD at [facility] MAIN OR ??? PRO AMPUTATION TOE, MT-P JT Right 11/18/2021 AMPUTATION TOE, METATARSO-PHALANGEAL JOINT (WRVU 5.82) performed by Sammy Baker MD at [facility]NE ??? PRO TOTAL KNEE ARTHROPLASTY Left 12/13/2015 @TOTAL KNEE ARTHROPLASTY performed by Gordon Mallory MD at [facility] MAIN OR ??? PRO UPPER GI ENDOSCOPY, DIAGNOSTIC Bilateral 08/17/2015 EGD, UPPER GI ENDOSCOPY performed by Trev Hong MD at [facility] ENDOSCOPY ??? REVISION TOTAL HIP ARTHROPLASTY bilateral for hip AVN ??? SPINE SURGERY Active Non-Hospital Problems Diagnosis ??? Pruritic rash ??? Cellulitis ??? Osteomyelitis ??? Neuropathic ulcer of toe of right foot with fat layer exposed ??? Neuropathic ulcer of foot, right, with fat layer exposed ??? Patient has active durable power of trial attorney (DPOA) designee for healthcare ??? Methadone [...] L 4th and 5th toes amputated; see assessment counselor for details Musculoskeletal: ROM: WFL Strength: WFL, [...] chronic b/l foot wounds (previous osteomyelitis), prior [id number] amputations, COPD on 2 L O2 at home, opioid use disorder on methadone and mild cognitive impairment presenting for admission from the [facility] (transferred from [facility] ED) at the request of the [...] in this evaluation. Time IN / OUT: 4674-9257 Total Minutes, Physical Therapy: 37 Billing Code: Evaluation Radha Pierre PT Pager: [phone] Physical Therapy Inpatient Rehabilitation Department Harley Raymond [...] ??? Patient has active durable power of trial attorney (DPOA) designee for healthcare ??? Methadone [...] Time Provider Department Center 01/15/2022 12:00 PM [facility] [address] [facility] Rad Arcaeli Lee RN - 11/18/2021 11:34 PM EDT Patient arrived [facility] via bed from PACU s/p R great [...] for patient with alarms on and active. 2215: Patient meets PACU discharge criteria. Verbal report called to [facility] nurseIfeanyi. Plans for transport per protocol to [facility]. documented in this encounter H&P Notes Jarad [...] closure Edi Childress MD Orthopaedic Surgery Pager [phone] I saw and evaluated the patient on [...] foot I&D. Harley Raymond MD Orthopaedic Surgery [facility] I saw and evaluated the patient on [...] Jarad Flores MD, MS Orthopaedic Surgery Attending Anotni Hurt MD - 11/21/2021 6:05 AM EDT [...] properly marked. Harley Raymond MD Orthopaedic Surgery [facility] Valentina Montoya MD - 11/18/2021 5:49 PM [...] cognitive impairment presenting for admission from the [facility] (transferred from [facility] ED) at the request of the [...] denies any fevers orchills. He presented to [facility] where his labs were significant for a WBC 23k, Cr 1.1, Hgb 13, Glucose 117, Na 137, CRP unknown (not obtained). He was administered clindamycin and Vancomycin and [facility] and recommended transfer to [facility] ED for further work-up and evaluation for [...] ??? Patient has active durable power of trial attorney (DPOA) designee for healthcare [id number] ??? Verruca plantaris B07.0 ??? Pruritic rash L28.2 ??? Necrotizing fasciitis M72.6 Past Surgical History: Past Surgical History: Procedure Laterality Date ??? PRO AMPUTATION FOOT, TRANSMETATARSAL Left 03/10/2020 AMPUTATION, TRANSMETATARSAL (WRVU 12.71) performed by Geovanna Lewis MD at [facility] MAIN OR ??? PRO TOTAL KNEE ARTHROPLASTY Left 12/13/2015 @TOTAL KNEE ARTHROPLASTY performed by Gordon Mallory MD at [facility] MAIN OR ??? PRO UPPER GI ENDOSCOPY, DIAGNOSTIC Bilateral 08/17/2015 EGD, UPPER GI ENDOSCOPY performed by Trev Hong MD at [facility] ENDOSCOPY ??? REVISION TOTAL HIP ARTHROPLASTY [...] Social History Narrative [place] grew [place]. 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 Pt has been exposed to [...] on file Patient lives with his in [place]. Former bar examiner. Current everyday smoker of 1 pack a [...] patients who have questions please contactthe health healthcare consulting manager that requested your imaging first. SSMENT and PLAN: Soledad Ramos is a 66 y.o. male with hx of EtOH abuse with alcoholic neuropathy and chronic b/l foot wounds(previous osteomyelitis), prior left 4th-5th amputations, COPD on 2 L O2 at home, opioid use disorder on methadone and mild cognitive impairment presenting for admission from the [facility] (transferred from [facility] ED) at the request of the [...] clindamycin and vancomycin; vancomycinand clindamycin started at [facility]. Will start piperacillin tazobactam now. - NPO - PT/OT #opioid use disorder #EtOH abuse #peripheral neuropathy #post-op pain control - call patient's clinic([facility]) in AM to confirm 90 mg dose [...] of two midnights or is on the [facility] inpatient only procedure list (status C) due to: acute necrotizing soft tissue infection of the right great toe/2nd toe requiring (multiple) debridements and IV antibiotics, acute on chronic osteomyelitis, cellulitis NIKKIEE Valentina Montoya MD [facility] Medicine Pager [phone] Alis Dowling MD - 11/18/2021 5:39 PM [...] to the planned procedure. Hand Hygiene: The repeater operator did perform hand hygiene prior to line insertion. Catheter type: PICC Lot number: [id number] Procedure Technique: Skin was prepped with chlorhexidine. [...] External: 0 cm Tip in SVC per [place] The line was not placed over a [...] on 11/18/21 Source Information Alis Dowling MD [facility] Ed Results for orders placed or [...] 3 VBGs No results for input(s): PHVEN, EPH7CLN, PO2VEN, TME9SEK, LACTATEVEN, BEVEN, HGBVEN, F2CHSFZ, COHBVEN, METHBVEN, NAWBVEN, KWBVEN, ICAWBVEN, CLWBVEN, GLUCWBVEN [...] 9:26 PM ED Course as of 11/19/21152 [place] Nov 18, 2021 1740 Ortho Consult: Plan [...] 3:41 PM EDT Transfer nursing report from [facility] VINCENT Coy:coming with R foot infection, weeping [...] Orders: OPAT Orders Location: Home, Referred to [facility] Coordination, Referred to Home Health Agency Home Health Services: Registered Nurse, Physical Therapy, Occupational Therapy, Wound care Agency Referrals & Follow-up Care: Contact information for follow-up [address] [place] [address] [facility] for [address] [address] Transportation: family or friend will provide *Spouse [...] of this letter. Tequila Sanchez RN, BSN [facility] - Medicine Office of Care Management Office: Pager: [phone] Consult Note - Reji Monte MD - 11/29/2021 2:22 PM EDT BIT Evaluation Referral source: Nursing referral Reason for referral: Alcohol Use Disorder Opioid Use Disorder. Medication-Assisted Treatment Plan Was patient offered MOUD: No. Reason MOUD not offered?: On MAT prior to admission. Methadone Relevant history: Mr. 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 Pt cleared per PT/OT for dc home per my conversation with NIEVES Padilla. Pt also has been accepted at infusion suite in [facility] for outpt IV ABx infusion. I also [...] clinical support of Methadone assisted therapy at [facility] in [place]. Pt likely will discharge today and continue titrating methadone through this clinic. Team has spokenwith [facility] provider who indicated likely plan [...] clinical support of Methadone assisted therapy at [facility] in [place]. 2. Last dose letter/documentation to [facility] including time of discharge and [...] Plan for now is titration 10mg/day per [facility] provider, monitoring QTc. - If pt remains tachycardic (ie >60bpm) bazette QTc correction may overestimate risk of TdP and likely risk of harm to patient if he relapses is much greater than low/theoretical risk of TdP. [address] [place] [address] Time spent with the patient (min):15 minutes [...] Methadone 45mg QD starting tmrw Defer to [facility] for further titration recs when [...] maintained. Report given to RN on at [id number]. Assessment as filed. Safety maintained. Will continue [...] (PICC) Teaching Sheet Peripherally inserted central catheters ([id number]) (PICC) are used when you need IV [...] midline catheter? PICC lines are used for terminal manager treatments. PICC lines may be used for [...] can be set up via the nurse [facility] to help you. What are possible complications [...] OPAT recommended CM sent referral to [facility] and ( [place] - resumption of care ) Orders Pended . [place] will notneed a new order unless order [...] Referrals: [facility] and [address] [address] PHONE: [phone] FAX: [phone] [place], [place] or [facility] Intake office: tel: [phone] [place], [place] Office [place], [place] Office Transportation: family or friend will provide Barriers to discharge: Discharge planning Plan going forward: Care Management will continue to follow and assist with discharge planning and coordination of care as indicated. Anticipated Date of Discharge: 11/28/2021 Office of Care Management Surgery Team [facility] [email or web address] Pager [phone] Consult Note - Brian Kaminski APRN - 11/27/2021 12:31 PM EDT BIT Evaluation Referral source: Nursing referral Reason for referral: Alcohol Use Disorder Opioid Use Disorder. Medication-Assisted Treatment Plan Was patient offered MOUD: No. Reason MOUD not offered?: On MAT prior to admission. Methadone Relevant history: Mr. 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 He reports his current Methadone dose is 90 mg daily take home medication prescription, having graduated from daily dosing years ago. He is agreeable to consultation between his primary team and [facility] on potential Methadone dose titration and transfer of care. He reports his last heavy use of alcohol was many years ago and reports only occasional use currently 1-2 beers per month and credits past engagement in outpatient counseling for this. [address] [place] [address] Mr. Ramos was open to instruction [...] clinical support of Methadone assisted therapy at [facility] in [place]. He endorses a remote history of heavy alcohol use and reports 1-2 beers per month currently. He plans to practice 4-7-8 Breathing technique for stress reduction. Interventions delivered: Consulted with care team Mindfulness Based Stress Reduction Motivational interviewing Pharmacologic treatment Recommend: -Primary team consultation with [facility] for potential Methadone dose titration and transfer of care. Plan: 1. Patient plans to remain abstinent from illicit opioids with the ongoing clinical support of Methadone assisted therapy at [facility]. 2. Patient plans to practice 4-7-8 [...] (min): 15 minutes Consult Note - Terrance Peres [facility] - 11/27/2021 10:54 AM EDT Clinical Pharmacist Note - Faheem Soeldad Ramos [id number] 1955 Soledad Ramos is a 66 y.o. [...] Alternately, during off-hours (9p-7a) you may call [phone] to contact a pharmacist. TERARNCE PERES RPH Plan of Care - Bridgette [...] Flores MD - 11/25/2021 8:54 AM EDT [facility] Operative Note Patient Name: Soledad Ramos : [id number] MR#: [id number] Case Date: 11/25/2021 Surgeon: Surgeon(s) and Role: * Jarad Flores MD - Primary * Edi Chilrdess MD - Resident Preoperative diagnosis: Osteomyelitis of [...] Flores MD - 11/23/2021 1:01 PM EDT [facility] Operative Note Patient Name: Soledad Ramos : [id number] MR#: [id number] Case Date: 11/23/2021 Surgeon: Surgeon(s) and Role: [...] 4th ray amputation), who was admitted to [facility] on 11/18 as a transfer from [facility] for necrotizing soft tissue infection of the right great toe,where he presented for rapid progression of redness and swelling of the wound overnight. At [facility], patient was stable but with WBC 23k, and was started on Clindamycin and Vancomycin before transfer to [facility]. Noted to have sinus tract on plantar surface. On arrival to [facility], Soledad was afebrile and hemodynamically stable. He [...] allergies. Social History: Lives with his in [place], [place]. One dog. 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 Alternately, during off-hours you may call [phone] to contact a pharmacist. Care Management - [...] Anticipated Date of Discharge: 11/26/2021 Jaclyn Fry [facility] [phone] Consult Note - Celina Arce RN - 11/22/2021 1:15 PM EDT PICC line placement canceled for this patient due to being unable to obtain consent from after multiple attempts. Consult Note - Jeanie Tenorio [facility] - 11/22/2021 10:44 AM EDT Clinical Pharmacist Note-Vanc Soledad Ramos [id number] 1955 Soledad Ramos is a 66 y.o. [...] have. Alternately, during off-hours you may call [phone] to contact a pharmacist. Jeanie Tenorio [facility] Pager [phone] Plan of Care - Zbigniew Riddle RN - 11/22/2021 1:18 AM EDT OUTCOME EVALUATION NOTE: OUTCOME SUMMARY: Pt alert to place and self, not redirectable. Remains in 4 point soft restraints and shanelle. Hypertensive w/ SBP into 180's, sched metop given w/ somewhat + effect, aware. Otherwise VSS on RA WA and [...] WoundVac maintained at -125 continuous suction. Endorses -12/19 pain RLE, given PRNsubQ dilaudid x3. Pt [...] OUTCOME EVALUATION: Consult Note - Sparkle Ramos [facility] - 11/19/2021 2:42 PM EDT TelePharmacy Home [...] Covid Vaccination Status: 1st & 2nd dose ([employer]) Last COVID test: Lab Results Component Value Date [id number] Not Detected 03/09/2020 Past medical History: Past [...] Padmini would be surrogate decision maker per [place] surrogate decision making law. (Only good for 180 days) Any patient receiving care at [facility] must abide by [place] law. The hierarchy for surrogate decision making [...] (i) The agent with financial power of trial attorney or a conservator appointed in accordance [...] standard (knee scooter) Home Address confirmed as: [address] [place] [address] Social & Family Supports: All names listed below confirmed with patient as current and correct Extended Emergency Contact Information Primary Emergency Contact: Padmini Ramos [facility] Relation: Spouse Secondary Emergency Contact: Sparkle Khan [facility] Relation: Child Current Care [...] SUPPLEMENT Prescription Coverage: Yes Preferred Pharmacy: [facility] [address] [address] [facility] Home Delivery - [facility] [address] [facility] [address] [facility] [address] [facility] [address] [place] [address] [place] Status: Patient is a : No Primary Care Provider: Brian Fall, [facility] [phone] Patient/Caregiver Goals of Treatment: Return home Potential Needs for Transition of Care: none Agency Referrals: Not Applicable at this time pending hospital course and PT OT recommendations Transportation: no concerns Transportation Anticipated: family or friend will provide Concerns to be Addressed: no discharge needs identified Assessment: Patient is admitted to [facility] service for R toe amputation and I&D [...] with transition of care planning. Jaclyn Fry [facility] [phone] Plan of Care - Araceli Lee RN [...] Baker MD - 11/18/2021 9:35 PM EDT [facility] Operative Note Patient Name: Soledad Ramos : [id number] MR#: [id number] Case Date: 11/18/2021 Surgeon: Surgeon(s) and Role: [...] comorbid 66-year-old male who presented to the [facility] for acute worsening for the past 3 [...] low continuous, 1 black sponge. - Appreciate [facility] care Attestation: Case Date: 11/18/2021 I was present and I participated during the entire procedure (does not need to include opening and closing). Sammy Baker MD 11/19/2021 Brief Op Note - Sammy Baker MD - 11/18/2021 9:30 PM EDT Brief Operative Note Patient Name: Soledad Ramos : [id number] MR#: [id number] Case Date: 11/18/2021 Surgeon: Surgeon(s) and Role: [...] unwell. He was initially seen at [facility] today and presented there. See my prior telephone encounter for telephone consultation in which I requested he be transferred here for further evaluation and management with orthopedic surgery consultation. [facility] his white count was 20 3K, [...] ??? Patient has active durable power of trial attorney (DPOA) designee for healthcare ??? Methadone [...] data in the 24 hours ending 11/18/21 173 There is no height or weight on [...] bedside with me Please page Orthopaedic consults ([phone]) with any questions or concerns. Alis Dowling MD P. [phone] 11/18/21 5:31 PM Future Appointments Date Time Provider Department Center 01/15/2022 12:00 PM [facility] CT [address] [facility] RAD CT [facility] Rad Associated attestation - Sammy Baker [...] - 11/18/2021 2:55 PM EDT Coming from [facility] with concern for Right foot wound [...] 12/11/2021 Office Visit Orthopaedics Marion Tavera APRN [facility] DR ORTHOPAEDIC SURG [place], [place] [address] (Wo rk) 01/15/2022 Appointment Radiology Stiven Cervantes MD [facility] Dr Pulmonary Medici [place], [place] [address] (Wo rk) Scheduled Orders Name [...] Esquivel, Understanding Action Plan 9:07 AM EDT) [facility] Note: Formatting of this note might [...] 494 ms MUSE SYSTEM (Bezet) Calculated P [place] 52 degrees MUSE SYSTEM Calculated R [place] 27 degrees MUSE SYSTEM Calculated T [place] 57 degrees MUSE SYSTEM INTERPRETATION Normal sinus rhythm with sinus arrhythmia MUSE SYSTEM borderline EKG When compared with ECG of 27-NOV-2021 11:44, Criteria for Inferior infarct are no longer Present I personally reviewed the tracing and edited the fellows int erpretation Confirmed by fellow MD Alexandra, Marco A ([id number]) on 022 3:05:39 PM Confirmed by Najma Ren ([id number]) on 11/29/2021 6:50:48 P M Specimen Anatomical Collection Method Collection Time Receive d Time (Source) Location / / Volume Laterality 11/29/2021 1:02 PM 6:50 EDT PM EDT Jennifer Martinez MD ECG ORDERABLES Performing Organization Address City/State/ZIP Code Phon e Number MUSE SYSTEM (ABNORMAL) Differential, Automated (11/29/2021 3:40 AM EDT) Patholo gist Method Time Signature Neutrophils % 62.4 % [facility] Neutr Abs (ANC) 7.80 (H) 1.70 - [facility] 6.10 [facility] x10(3)/[facility] LABORATORY Lymphocytes % 23.8 % [facility] Lymphocytes Abs 3.0 0.9 - 3.2 [facility] x10(3)/[facility] LABORATORY Monocytes % 6.0 % [facility] Monocyte Abs 0.8 0.3 - 0.9 [facility] x10(3)/[facility] LABORATORY Eosinophils % 5.7 % [facility] Eosinophils Abs 0.7 (H) 0.0 - 0.4 [facility] x10(3)/[facility] LABORATORY Basophils % 1.3 % [facility] Basophils Abs 0.2 (H) 0.0 - 0.1 [facility] x10(3)/[facility] LABORATORY Immature Gran % 0.80 % [facility] Comment: Immature granulocytes(IG's)percentage an d absolute count will include metamyelocytes, myelocytes, and promyelo cytes. Blood smears from CBCs yielding IG's will be scanned manually for concor dance. If this scan disagrees with the automated IG or if promyelocytes are not ed, a manual differential will be performed. Shannan Gran Abs 0.10 (H) 0.00 - 0.04 x10(3)/[facility] LABORATORY Specimen Anatomical Collection Method Collection Time Receive d Time (Source) Location / / Volume Laterality Blood 11/29/2021 3:40 AM 4:00 EDT AM EDT Resulting Agency Comment Spec In Lab NIEVES Peoples HEMATOLOGY ORDERABLES Performing Organization Address City/State/ZIP Code Phon e Number [place] [id number] (ABNORMAL) Hemogram (11/29/2021 3:40 AM EDT) Analysis Performed At Patho logist Time Signature WBC 12.5 (H) 4.0 - 9.5 [facility] x10(3)/[facility] LABORATORY RBC 4.34 (L) 4.58 - [facility].54 [facility] x10(6)/[facility] LABORATORY Hemoglobin 13.9 13.7 - [facility] 16.5 g/dL [facility] LABORATORY Hematocrit 41.3 40.5 - [facility] 48.5 % [facility] LABORATORY MCV 95.2 (H) 82.9 - [facility] 93.1 [facility] LABORATORY MCH 32.0 27.5 - [facility] 32.1 pg [facility] LABORATORY MCHC 33.7 32.0 - [facility] 35.7 g/dL [facility] LABOR[facility]ORY Platelets 494 (H) 145 - 357 [facility] x10(3)/[facility] LABORATORY RDWSD 49.2 (H) 36.0 - [facility] 45.0 [facility] LABORATORY RDWCV 14.2 (H) 11.4 - [facility] 13.8 % [facility] LABORATORY MPV 9.5 7.6 - 12.9 [facility] LABORATORY nRBC % Auto 0.0 % [facility] nRBC Abs Auto 0.000 0.000 - [facility] 0.000 [facility] x10(3)/[facility] LABORATORY Specimen Anatomical Collection Method Collection Time Receive d Time (Source) Location / / Volume Laterality Blood 11/29/2021 3:40 AM 4:00 EDT AM EDT Resulting Agency Comment Spec In Lab NIEVES Peoples HEMATOLOGY ORDERABLES Performing Organization Address City/State/[place] [address] (ABNORMAL) Basic Metabolic Panel (non-fasting) (11/29/2021 3:40 AM EDT) P athologist Signature Glucose Lvl 110 65 - 199 [facility] mg/dL [facility] Comment: Diabetes: >=200 mg/dL plus symp toms BUN 22 (H) 10 - 20 mg/dL [facility] Creatinine 1.47 0.80 - 1.50 mg/dL [facility] Sodium 138 135 - 145 mmol/L [facility] Potassium 3.7 3.5 - 5.0 mmol/L [facility] Comment: Please note: ??Patients with WBC >100,00 0 may have falsely elevated Potassium levels. ??For accurate Potassium quantif ication in these patients send serum separator tube (gold top) for subsequent determinations. ??Contact the Clinical Chemistry Laboratory if there are any qu estions. Chloride 101 98 - 107 mmol/L [facility] CO2 25 22 - 31 mmol/L [facility] Anion Gap 12 5 - 15 mmol/L [facility] Calcium 9.2 8.5 - 10.5 mg/dL [facility] Estimated GFR 52 (L) >=60 mL/min/1.73 m?? [facility] Comment: This patient's estimated GFR was calcula lul using the 2021 CKD-EPI equation. The estimated GFR can vary [...] Martinez MD CHEMISTRY ORDERABLES Performing Organization Address City/[facility] Code Phon e Number [address] Potassium (11/28/2021 6:30 PM EDT) athologist Signature Potassium 3.6 3.5 - 5.0 [facility] LABORATORY Comment: Please note: ??Patients with WBC [...] Martinez MD CHEMISTRY ORDERABLES Performing Organization Address City/[facility] Phon e Number [address] Magnesium (11/28/2021 3:15 AM EDT) athologist Signature Magnesium 0.74 0.69 - 1.07 [facility] LABORATORY Specimen Anatomical Collection Method Collection Time Receive d Time (Source) Location / / Volume Laterality Blood Venous Draw / 11/28/2021 3:15 AM 11/29/19 3:25 Unknown EDT AM EDT Resulting Agency Comment Spec In Lab Stephanie Parrish MD CHEMISTRY ORDERABLES Performing Organization Address City/State/[place] [address] (ABNORMAL) Differential, Automated (11/28/2021 3:15 AM EDT) [facility] Method Time Signature Neutrophils % 62.7 % [facility] Neutr Abs (ANC) 8.02 (H) 1.70 - [facility] 6.10 [facility] x10(3)/[facility] LABORATORY Lymphocytes % 24.2 % [facility] Lymphocytes Abs 3.1 0.9 - 3.2 [facility] x10(3)/[facility] LABORATORY Monocytes % 6.6 % [facility] Monocyte Abs 0.8 0.3 - 0.9 [facility] x10(3)/[facility] LABORATORY Eosinophils % 4.7 % [facility] Eosinophils Abs 0.6 (H) 0.0 - 0.4 [facility] x10(3)/[facility] LABORATORY Basophils % 0.8 % [facility] Basophils Abs 0.1 0.0 - 0.1 [facility] x10(3)/[facility] LABORATORY Immature Gran % 1.00 % [facility] Comment: Immature granulocytes(IG's)percentage an d absolute count will include metamyelocytes, myelocytes, and promyelo cytes. Blood smears from CBCs yielding IG's will be scanned manually for concor dance. If this scan disagrees with the automated IG or if promyelocytes are not ed, a manual differential will be performed. Shannan Gran Abs 0.13 (H) 0.00 - 0.04 x10(3)/[facility] LABORATORY Specimen Anatomical Collection Method Collection Time Receive d Time (Source) Location / / Volume Laterality Blood 11/28/2021 3:15 AM 3:23 EDT AM EDT Resulting Agency Comment Spec In Lab NIEVES Peoples HEMATOLOGY ORDERABLES Performing Organization Address City/State/[place] [address] (ABNORMAL) Hemogram (11/28/2021 3:15 AM EDT) Analysis Performed At Patho logist Time Signature WBC 12.8 (H) 4.0 - 9.5 [facility] x10(3)/[facility] LABORATORY RBC 4.38 (L) 4.58 - [place] [facility] 5.54 [facility] x10(6)/[facility] LABORATORY Hemoglobin 13.9 13.7 - [facility] 16.5 g/dL [facility]ORY Hematocrit 41.6 40.5 - [facility] 48.5 % [facility] LABORATORY MCV 95.0 (H) 82.9 - [facility] 93.1 [facility] LABORATORY MCH 31.7 27.5 - [place] [facility] 32.1 pg [facility] LABORATORY MCHC 33.4 32.0 - [place] [facility] 35.7 g/dL [facility] LABORATORY Platelets 504 (H) 145 - 357 [facility] x[facility](3)/[facility] LABORATORY RDWSD 49.2 (H) 36.0 - [place] [facility] 45.0 [facility] LABORATORY RDWCV 14.3 (H) 11.4 - [facility] KIRTI 13.8 % [facility] LABORATORY MPV 9.3 7.6 - 12.9 [facility] LABORATORY nRBC % Auto 0.0 % [facility] nRBC Abs Auto 0.000 0.000 - [facility] 0.[address] [facility] x10(3)/[facility] LABORATORY Specimen Anatomical Collection Method Collection Time Receive d Time (Source) Location / / Volume Laterality Blood 11/28/2021 3:15 AM 3:23 EDT AM EDT Resulting Agency Comment Spec In Lab NIEVES Peoples HEMATOLOGY ORDERABLES Performing Organization Address City/State/[place] [address] (ABNORMAL) Basic Metabolic Panel (non-fasting) (11/28/2021 3:15 AM EDT) P athologist Signature Glucose Lvl 114 65 - 199 [facility] mg/dL [facility] LABORATORY Comment: Diabetes: >=200 mg/dL plus symp toms BUN 14 10 - 20 mg/dL [facility] LABORATORY Comment: result rechecked-sf Creatinine 1.49 0.80 - 1.50 mg/dL [facility] LABORATORY Sodium 141 135 - 145 mmol/L [facility] LABORATORY Potassium 2.9 (Critical) 3.5 - 5.0 mmol/L [facility] LABORATORY Comment: Called by: sima, Read back by: claudia velazquez, Date/Time:11/28/21 04:00. Please note: ??Patients with WBC >100,00 0 may have falsely elevated Potassium levels. ??For accurate Potassium quantif ication in these patients send serum separator tube (gold top) for subsequent determinations. ??Contact the Clinical Chemistry Laboratory if there are any qu estions. Chloride 102 98 - 107 mmol/L [facility] LABORATORY CO2 25 22 - 31 mmol/L [facility] LABORATORY Anion Gap 14 5 - 15 mmol/L [facility] LABORATORY Calcium 9.0 8.5 - 10.5 mg/dL [facility] LABORATORY Estimated GFR 51 (L) >=60 mL/min/1.73 m?? [facility] LABORATORY Comment: This patient's estimated GFR [...] Organization Address City/State/ZIP Code Phon e Number [place] [phone] HOSPITAL LAB[address]ATORY [address] Place PICC Line: Contact Vascular Access Page [phone] Extremity to exclude: No restrictions; Is PICC [...] the planned procedu re. Hand Hygiene: The repeater operator did perform hand hygiene pr ior to line insertion. Catheter type: PICC Lot number: [id number] Procedure Technique: Skin was prepped with chlorhexidine. [...] External: 0 cm Tip in SVC per [place] The line was not placed over a [...] who have questions please contact the health healthcare consulting manager that requested your imaging first. ? Narrative [...] ho have questions please contact the health healthcare consulting manager that requested your imaging first. Jennifer Martinez MD IMG FLUORO ORDERABLES EKG [...] 495 ms MUSE SYSTEM (Bezet) Calculated P [place] 38 degrees MUSE SYSTEM Calculated R [place] -7 degrees MUSE SYSTEM Calculated T [place] 37 degrees MUSE SYSTEM INTERPRETATION Normal sinus rhythm MUSE SYSTEM Septal infarct (cited on or before 20-NOV-2021) Inferior infarct , age undetermined Abnormal ECG When compared with ECG of 20-NOV-2021 12:47, No significant change was found I personally reviewed the tracing and edited the fellows int erpretation Confirmed by fellow MD Devorah, Debra ([id number]) on 11/28/2021 11: 56:35 AM Confirmed by MD Jacob, Cristian ([id number]) on 11/28/2021 1:18:37 PM Specimen Anatomical Collection Method Collection Time Receive d Time (Source) Location / / Volume Laterality 11/27/2021 11:44 11/28/2021 1:18 AM EDT PM EDT Jennifer Martinez MD ECG ORDERABLES Performing Organization Address City/State/ZIP Code Phon e Number MUSE SYSTEM C. Difficile Screen (11/26/2021 1:47 PM EDT) [facility] Method Time Signature C Diff Screen See comment Negative [facility] LABORATORY Comment: Ag/Tox Neg C. diff?? [...] - GENERAL ORDER SILAS Performing Organization Address City/[facility]/ZIP Code Phon e Number [address] CK (11/26/2021 6:56 AM EDT) athologist Signature CK, Total 74 0 - 200 [facility] Specimen Anatomical Collection Method Collection Time Receive d Time (Source) Location / / Volume Laterality Blood Venous Draw / 11/26/2021 6:56 AM 11/27/19 7:32 Unknown EDT AM EDT Resulting Agency Comment Spec In Lab NIEVES Peoples CHEMISTRY ORDERABLES Performing Organization Address City/[facility]/ZIP Code Phon e Number [address] Magnesium (11/26/2021 6:56 AM EDT) athologist Signature Magnesium 0.75 0.69 - 1.07 [facility] mmol/[facility] LABORATORY Specimen Anatomical Collection Method Collection Time Receive d Time (Source) Location / / Volume Laterality Blood Venous Draw / 11/26/2021 6:56 AM 11/27/19 22 7:32 Unknown EDT AM EDT Resulting Agency Comment Spec In Lab NIEVES Peoples CHEMISTRY ORDERABLES Performing Organization Address City/State/ZIP Code Phon e Number [facility] [place] [address] (ABNORMAL) Differential, Automated (11/26/2021 6:56 AM EDT) [facility] Method Time Signature Neutrophils % 70.3 % [facility] LABORATORY Neutr Abs (ANC) 8.41 (H) 1.70 - [facility] 6.10 [facility] x10(3)/[facility] LABORATORY Lymphocytes % 15.1 % [facility] LABORATORY Lymphocytes Abs 1.8 0.9 - 3.2 [facility] x10(3)/[facility] LABORATORY Monocytes % 7.9 % [facility] LABORATORY Monocyte Abs 1.0 (H) 0.3 - 0.9 [facility] x10(3)/[facility] LABORATORY Eosinophils % 4.4 % [facility] LABORATORY Eosinophils Abs 0.5 (H) 0.0 - 0.4 [facility] x10(3)/[facility] LABORATORY Basophils % 1.0 % [facility] LABORATORY Basophils Abs 0.1 0.0 - 0.1 [facility] x10(3)/[facility] LABORATORY Immature Gran % 1.30 % [facility] LABORATORY Comment: Immature granulocytes(IG's)percentage an d absolute count will include metamyelocytes, myelocytes, and promyelo cytes. Blood smears from CBCs yielding IG's will be scanned manually for concor dance. If this scan disagrees with the automated IG or if promyelocytes are not ed, a manual differential will be performed. Shannan Gran Abs 0.15 (H) 0.00 - 0.04 x10(3)/[facility] LABORATORY Specimen Anatomical Collection Method Collection Time Receive d Time (Source) Location / / Volume Laterality Blood 11/26/2021 6:56 AM 07/18/202 2 7:10 EDT AM EDT Resulting Agency Comment Spec In Lab Harley Raymond MD HEMATOLOGY ORDERABLES Performing Organization Address City/State/ZIP Code Phon e Number [address] (ABNORMAL) Hemogram (11/26/2021 6:56 AM EDT) Analysis Performed At Patho logist Time Signature WBC 12.0 (H) 4.0 - 9.5 [place] [facility] x10(3)/[facility] LABORATORY RBC 4.26 (L) 4.58 - [place] 5.54 [facility] x10(6)/[facility] LABORATORY Hemoglobin 13.6 (L) 13.7 - [place] 16.5 g/dL [facility] LABORATORY Hematocrit 40.5 40.5 - [facility] 48.5 % [facility] LABORATORY MCV 95.1 (H) 82.9 - [facility] 93.1 [facility] LABORATORY MCH 31.9 27.5 - [place] KIRTI 32.1 pg [facility] LABORATORY MCHC 33.6 32.0 - [place] KIRTI 35.7 g/dL [facility] LABORATORY Platelets 418 (H) 145 - 357 [facility] x10(3[facility] LABORATORY RDWSD 49.8 (H) 36.0 - [place] 45.0 [facility] LABORATORY RDWCV 14.4 (H) 11.4 - [place] KIR[place] 13.8 % [facility] LABORATORY MPV 9.3 7.6 - 12.9 [facility] LABORATORY nRBC % Auto 0.0 % [facility] LABORATORY nRBC Abs Auto 0.000 0.000 - [place] 0.000 [facility] x10(3)/[facility] LABORATORY Specimen Anatomical Collection Method Collection Time Receive d Time (Source) Location / / Volume Laterality Blood 11/26/2021 6:56 AM 2 7:10 EDT AM EDT Resulting Agency Comment Spec In Lab Harley Raymond MD HEMATOLOGY ORDERABLES Performing Organization Address City/State/[place] [address] (ABNORMAL) Basic Metabolic Panel (non-fasting) (11/26/2021 6:56 AM EDT) P athologist Signature Glucose Lvl 105 65 - 199 [facility] mg/dL [facility] LABORATORY Comment: Diabetes: >=200 mg/dL plus symp toms BUN 8 (L) 10 - 20 mg/dL [facility] LABORATORY Creatinine 1.20 0.80 - 1.50 mg/dL [facility] LABORATORY Sodium 143 135 - 145 mmol/L [facility] LABORATORY Potassium 3.6 3.5 - 5.0 mmol/L [facility] LABORATORY Comment: Please note: ??Patients with WBC >100,00 0 may have falsely elevated Potassium levels. ??For accurate Potassium quantif ication in these patients send serum separator tube (gold top) for subsequent determinations. ??Contact the Clinical Chemistry Laboratory if there are any qu estions. Chloride 109 (H) 98 - 107 mmol/L [facility] LABORATORY CO2 22 22 - 31 mmol/L [facility] LABORATORY Anion Gap 12 5 - 15 mmol/L [facility] LABORATORY Calcium 8.8 8.5 - 10.5 mg/dL [facility] LABORATORY Estimated GFR 66 >=60 mL/min/1.73 m?? [facility] LABORATORY Comment: This patient's estimated GFR [...] Martinez MD CHEMISTRY ORDERABLES Performing Organization Address City/[facility]/[place] [address] Anaerobic Culture (11/25/2021 9:00 AM EDT) [facility] Utilize Health Method Time Signature Anaerobic No anaerobic [place] [facility] Culture organisms [facility] LABORATORY Specimen Anatomical Collection Method Collection Time Receive d Time (Source) Location / / Volume Laterality Leg 11/25/2021 9:00 AM 2 EDT 10:33 AM EDT Comment: Right foot proximal resection s ite first metatarsal. Resulting Agency Comment Spec In Lab Jarad Flores MD MICROBIOLOGY - GENERAL ORDER SILAS Performing Organization Address City/[facility]/[place] [address] (ABNORMAL) Tissue culture (11/25/2021 9:00 AM EDT) Component Value Ref Test Analysis Performed At [facility] Utilize Health Range Method Time Signature Tissue Rare Coagulase negative Staphylococcus species [place] Culture One colony of Coagulase negative Staphylococcus species #2 [facility] Rare Corynebacterium species M [facility] Susceptibilities previously reported HOSPITAL (A) LABORATORY Gram Stain No Neutrophils seen. [place] No microorganisms seen. [facility] OCK (A) [facility] LABORATORY Organism Coagulase negative [place] Staphylococcus BENEDICT species (A) [facility] LABORATORY Organism Corynebacterium [place] species (A) [facility] LABORATORY Specimen Anatomical Collection Method Collection Time Receive d Time (Source) Location / / Volume Laterality Leg 11/25/2021 9:00 AM EDT 10:33 AM EDT Comment: Right foot proximal resection s ite first metatarsal. Resulting Agency Comment Spec In Lab Jarad Flores MD MICROBIOLOGY - GENERAL ORDER SILAS Performing Organization Address City/[facility]/[place] [address] XR Foot Min 3 [...] who have questions please contact the health healthcare consulting manager that requested your imaging first. ? Narrative [...] ho have questions please contact the health healthcare consulting manager that requested your imaging first. Afshin Rogers MD IMG DX ORDERABLES (ABNORMAL) Differential, Automated (11/23/2021 4:28 PM EDT) [facility] Method Time Signature Neutrophils % 74.2 % [facility] LABORATORY Neutr Abs (ANC) 9.89 (H) 1.70 - [facility] 6.10 [facility] x10(3)/[facility] LABORATORY Lymphocytes % 13.0 % [facility] LABORATORY Lymphocytes Abs 1.7 0.9 - 3.2 [facility] x10(3)/[facility] LABORATORY Monocytes % 9.2 % [facility] LABORATORY Monocyte Abs 1.2 (H) 0.3 - 0.9 [facility] x10(3)/[facility] LABORATORY Eosinophils % 1.9 % [facility] LABORATORY Eosinophils Abs 0.2 0.0 - 0.4 [facility] x10(3)/[facility] LABORATORY Basophils % 0.7 % [facility] LABORATORY Basophils Abs 0.1 0.0 - 0.1 [facility] x10(3)/[facility] LABORATORY Immature Gran % 1.00 % [facility] LABORATORY Comment: Immature granulocytes(IG's)percentage an d absolute count will include metamyelocytes, myelocytes, and promyelo cytes. Blood smears from CBCs yielding IG's will be scanned manually for concor dance. If this scan disagrees with the automated IG or if promyelocytes are not ed, a manual differential will be performed. Shannan Gran Abs 0.13 (H) 0.00 - 0.04 x10(3)/[facility] LABORATORY Specimen Anatomical Collection Method Collection Time Receive d Time (Source) Location / / Volume Laterality Blood 11/23/2021 4:28 PM 4:55 EDT PM EDT Resulting Agency Comment Spec In Lab Harley Raymond MD HEMATOLOGY ORDERABLES Performing Organization Address City/State/[place] [address] (ABNORMAL) Hemogram (11/23/2021 4:28 PM EDT) Analysis Performed At Patho logist Time Signature WBC 13.3 (H) 4.0 - 9.5 [facility] x10(3)/[facility] LABORATORY RBC 4.79 4.58 - [facility] 5.54 [facility] x10(6)/[facility] LABORATORY Hemoglobin 15.2 13.7 - [facility] 16.[facility] g/dL [facility] LABORATORY Hematocrit 45.6 40.5 - [facility] 48.5 % [facility] LABORATORY MCV 95.2 (H) 82.9 - [facility] 93.1 [facility] LABORATORY MCH 31.7 27.5 - [place] 32.1 pg [facility] LABORATORY MCHC 33.3 32.0 - [place] K[place] 35.7 g/dL [facility] LABORATORY Platelets 389 (H) 145 - 357 [facility] x10(3)/[facility] LABORATORY RDWSD 48.6 (H) 36.0 - [place] 45.0 [facility] LABORATORY RDWCV 14.0 (H) 11.4 - [place] 13.8 % [facility] LABORATORY MPV 9.2 7.6 - 12.9 [facility] LABORATORY nRBC % Auto 0.0 % [facility] LABORATORY nRBC Abs Auto 0.000 0.000 - [place] Active-Semi 0.000 [facility] x10(3)/[facility] LABORATORY Specimen Anatomical Collection Method Collection Time Receive d Time (Source) Location / / Volume Laterality Blood 11/23/2021 4:28 PM 4:55 EDT PM EDT Resulting Agency Comment Spec In Lab Harley Raymond MD HEMATOLOGY ORDERABLES Performing Organization Address City/State/[place] [address] Phosphorus (11/23/2021 4:28 PM EDT) P athologist Signature Phosphorus 4.0 2.5 - 4.5 [facility] mg/dL [facility] LABORATORY Specimen Anatomical Collection Method Collection Time Receive d Time (Source) Location / / Volume Laterality Blood 11/23/2021 4:28 PM 2 4:55 EDT PM EDT Resulting Agency Comment Spec In Lab Jennifer Martinez MD CHEMISTRY ORDERABLES Performing Organization Address City/State/Z[place] [address] (ABNORMAL) Basic Metabolic Panel (non-fasting) (11/23/2021 4:28 PM EDT) P athologist Signature Glucose Lvl 96 65 - 199 [facility] mg/dL [facility] LABORATORY Comment: Diabetes: >=200 mg/dL plus symp toms BUN 6 (L) 10 - 20 mg/dL [facility] LABORATORY Creatinine 1.28 0.80 - 1.50 mg/dL [facility] LABORATORY Sodium 144 135 - 145 mmol/L [facility] LABORATORY Potassium 3.2 (L) 3.5 - 5.0 mmol/L [facility] LABORATORY Comment: Please note: ??Patients with WBC >100,00 0 may have falsely elevated Potassium levels. ??For accurate Potassium quantif ication in these patients send serum separator tube (gold top) for subsequent determinations. ??Contact the Clinical Chemistry Laboratory if there are any qu estions. Chloride 105 98 - 107 mmol/L [facility] LABORATORY CO2 23 22 - 31 mmol/L [facility] LABORATORY Anion Gap 16 (H) 5 - 15 mmol/L [facility] LABORATORY Calcium 9.2 8.5 - 10.5 mg/dL [facility] LABORATORY Estimated GFR 61 >=60 mL/min/1.73 m?? [facility] LABORATORY Comment: This patient's estimated GFR [...] / Volume Laterality Blood 11/23/2021 4:28 PM 4:57 EDT PM EDT Resulting Agency Comment Spec In Lab Afshin Rogers MD CHEMISTRY ORDERABLES Performing Organization Address City/[facility]/[place] [address] Anaerobic Culture (11/23/2021 1:06 PM EDT) [employer] Method Time Signature Anaerobic No anaerobic [facility] Culture organisms [facility] LABORATORY Specimen Anatomical Collection Method Collection Time Receive d Time (Source) Location / / Volume Laterality Bone TOE STRUCTURE / 11/23/2021 1:06 PM 2021 2:36 Unknown EDT PM EDT Comment: First right metatarsal resectio n #3 Resulting Agency Comment Spec In Lab Jarad Flores MD MICROBIOLOGY - GENERAL ORDER SILAS Performing Organization Address City/[facility]/[place] [address] (ABNORMAL) Bone Culture (11/23/2021 1:06 PM EDT) Component Value Ref Test Analysis Performed At [facility] Method Time Signature Bone Culture Rare Coagulase negative Staphylococcus species [place] Susceptibilities previously reported [facility] (A) [facility] LABORATORY Gram Stain No Neutrophils seen. [place] No microorganisms seen. [facility] OCK (A) [facility] LABORATORY Organism Coagulase negative [place] Staphylococcus KIRTI species (A) [facility] LABORATORY Specimen Anatomical Collection Method Collection Time Receive d Time (Source) Location / / Volume Laterality Bone TOE STRUCTURE / 11/23/2021 1:06 PM 2021 2:36 Unknown EDT PM EDT Comment: First right metatarsal resectio n #3 Resulting Agency Comment Spec In Lab Jarad Flores MD MICROBIOLOGY - GENERAL ORDER SILAS Performing Organization Address City/[facility]/[place] [address] Anaerobic Culture (11/23/2021 1:06 PM EDT) [facility] Utilize Health Method Time Signature Anaerobic No anaerobic [place] [facility] Culture organisms [facility] LABORATORY Specimen Anatomical Collection Method Collection Time Receive d Time (Source) Location / / Volume Laterality Bone TOE STRUCTURE / 11/23/2021 1:06 PM 2021 2:39 Unknown EDT PM EDT Comment: First right metatarsal resectio n #2 Resulting Agency Comment Spec In Lab Jarad Flores MD MICROBIOLOGY - GENERAL ORDER SILAS Performing Organization Address City/[facility]/ZIP Code Phon e Number [place] [id number] [facility] LABORATORY Drive (ABNORMAL) Bone Culture (11/23/2021 1:06 PM EDT) Component Value Ref Test Analysis Performed At [facility] Utilize Health Range Method Time Signature Bone Culture Rare Coagulase negative Staphylococcus species [place] Susceptibilities previously reported BENEDICT () [facility] LABORATORY Gram Stain No Neutrophils seen. [place] No microorganisms seen. [facility] OCK (A) [facility] LABORATORY Organism Coagulase negative [place] Staphylococcus KIRTI species (A) [facility] LABORATORY Specimen Anatomical Collection Method Collection Time Receive d Time (Source) Location / / Volume Laterality Bone TOE STRUCTURE / 11/23/2021 1:06 PM 2021 2:38 Unknown EDT PM EDT Comment: First right metatarsal resectio n #2 Resulting Agency Comment Spec In Lab Jarad Flores MD MICROBIOLOGY - GENERAL ORDER SILAS Performing Organization Address City/[facility]/ZIP [place] [address] Anaerobic Culture (11/23/2021 1:06 PM EDT) [facility] Utilize Health Method Time Signature Anaerobic No anaerobic [place] CHASEKIRTI Culture organisms [facility] LABORATORY Specimen Anatomical Collection Method Collection Time Receive d Time (Source) Location / / Volume Laterality Bone TOE STRUCTURE / 11/23/2021 1:06 PM 2021 2:37 Unknown EDT PM EDT Comment: First right metatarsal resectio n #1 Resulting Agency Comment Spec In Lab Jarad Flores MD MICROBIOLOGY - GENERAL ORDER SILAS Performing Organization Address City/State/ZIP [place] [address] (ABNORMAL) Bone Culture (11/23/2021 1:06 PM EDT) Component Value Ref Test Analysis Performed At [facility] gist Range Method Time Signature Bone Culture Few Coagulase negative Staphylococcus species : two mo rphologies [place] Rare Corynebacterium species H ITCHCOCK (A) [facility] LABORATORY Gram Stain No Neutrophils seen. [place] No microorganisms seen. [facility] OCK (A) [facility] LABORATORY Organism Coagulase negative [place] Staphylococcus KIRTI species (A) [facility] LABORATORY Organism Coagulase negative [place] Staphylococcus KIRTI species (A) [facility] LABORATORY Organism Corynebacterium [place] species (A) [facility] LABORATORY Specimen Anatomical Collection Method Collection [...] Comment: Gentamicin is not a ppropriate for Plumas-therapy. Coagulase negative staphylococcus Levofloxacin MICROSCAN METH OD [...] Comment: Gentamicin is not a ppropriate for Plumas-therapy. Coagulase negative Levofloxacin MICROSCAN METHOD Sensitive staphylococcus [...] - GENERAL ORDER SILAS Performing Organization Address City/[facility]/ZIP [facility] Phon e Number [address] Phosphorus (11/22/2021 6:07 PM EDT) athologist Signature Phosphorus 2.9 2.5 - 4.5 [facility] mg/dL [facility] LABORATORY Specimen Anatomical Collection Method Collection Time Receive d Time (Source) Location / / Volume Laterality Blood 11/22/2021 6:07 PM 2 6:14 EDT PM EDT Resulting Agency Comment Spec In Lab Afshin Rogers MD CHEMISTRY ORDERABLES Performing Organization Address [facility] Phon e Number [address] (ABNORMAL) Vancomycin, trough (11/22/2021 8:29 AM EDT) athologist Signature Vanc Trough 21.4 mg/L [facility] (Critical) [facility] LABORATORY Comment: Called by: , Read back [...] Montoya MD CHEMISTRY ORDERABLES Performing Organization Address City/[facility]/[place] [address] Phosphorus (11/22/2021 8:29 AM EDT) P athologist Signature Phosphorus 3.6 2.5 - 4.5 [facility]/dL [facility] LABORATORY Specimen Anatomical Collection Method Collection Time Receive d Time (Source) Location / / Volume Laterality Blood 11/22/2021 8:29 AM 2 9:09 EDT AM EDT Resulting Agency Comment Spec In Lab Afshin Rogers MD CHEMISTRY ORDERABLES Performing Organization Address City/State/ZIP Code Phon e Number [address] Phosphorus (11/21/2021 6:46 PM EDT) P athologist Signature Phosphorus 2.9 2.5 - 4.5 [facility] [facility] mg/dL [facility] LABORATORY Specimen Anatomical Collection Method Collection Time Receive d Time (Source) Location / / Volume Laterality Blood 11/21/2021 6:46 PM 2 6:53 EDT PM EDT Resulting Agency Comment Spec In Lab Afshin Rogers MD CHEMISTRY ORDERABLES Performing Organization Address City/State/ZIP Code Phon e Number [address] (ABNORMAL) Differential, Automated (11/21/2021 8:38 AM EDT) P athologist Signature Neutrophils % 70.4 % [facility] LABORATORY Neutr Abs (ANC) 5.79 1.70 - [facility] 6.10 [facility] x10(3)/[facility] LABORATORY Lymphocytes % 12.6 % [facility] LABORATORY Lymphocytes Abs 1.0 0.9 - 3.2 [facility] x10(3)/[facility] LABORATORY Monocytes % 11.2 % [facility] LABORATORY Monocyte Abs 0.9 0.3 - 0.9 [facility] x10(3)/[facility] LABORATORY Eosinophils % 4.6 % [facility] LABORATORY Eosinophils Abs 0.4 0.0 - 0.4 [facility] x10(3)/[facility] LABORATORY Basophils % 0.6 % [facility] LABORATORY Basophils Abs 0.0 0.0 - 0.1 [facility] x10(3)/[facility] LABORATORY Immature Gran % 0.60 % [facility] LABORATORY Comment: Immature granulocytes(IG's)percentage an d absolute count will include metamyelocytes, myelocytes, and promyelo cytes. Blood smears from CBCs yielding IG's will be scanned manually for concor dance. If this scan disagrees with the automated IG or if promyelocytes are not ed, a manual differential will be performed. Shannan Gran Abs 0.05 (H) 0.00 - 0.04 x10(3)/[facility] LABORATORY Specimen Anatomical Collection Method Collection Time Receive d Time (Source) Location / / Volume Laterality Blood 11/21/2021 8:38 AM 8:51 EDT AM EDT Resulting Agency Comment Spec In Lab Valentina Montoya MD HEMATOLOGY ORDERABLES Performing Organization Address City/State/ZIP Code Phon e Number [place] [id number] HOSPITAL LABORATORY Drive (ABNORMAL) Hemogram (11/21/2021 8:38 AM EDT) Analysis Performed At Patho logist Time Signature WBC 8.2 4.0 - 9.5 [facility] x10(3)/[facility] LABORATORY RBC 4.13 (L) 4.58 - [facility] KIRTI 5.54 [facility] x10(6)/[facility] LABORATORY Hemoglobin 13.2 (L) 13.7 - [facility] 16.5 g/dL [facility] LABORATORY Hematocrit 38.9 (L) 40.5 - [facility] KIRTI 48.5 % [facility] LABORATORY MCV 94.2 (H) 82.9 - [facility] fL [facility] LABORATORY MCH 32.0 27.5 - [place] KIR[place] 32.1 pg [facility] LABORATORY MCHC 33.9 32.0 - [facility] 35.7 g/dL [facility] LABORATORY Platelets 285 145 - 357 [facility] x10(3)/[facility] LABORATORY RDWSD 48.8 (H) 36.0 - [place] HERNÁNDEZ 45.0 [facility] LABORATORY RDWCV 14.2 (H) 11.4 - [place] KIRTI 13.8 % [facility] LABORATORY MPV 8.9 7.6 - 12.9 [place] KIRTI [facility] LABORATORY nRBC % Auto 0.0 % [facility] LABORATORY nRBC Abs Auto 0.000 0.000 - [place] KIRTI 0.000 [facility] x10(3)/[facility] LABORATORY Specimen Anatomical Collection Method Collection Time Receive d Time (Source) Location / / Volume Laterality Blood 11/21/2021 8:38 AM 2 8:51 EDT AM EDT Resulting Agency Comment Spec In Lab Valentina Montoya MD HEMATOLOGY ORDERABLES Performing Organization Address City/[facility]/ZIP Code Phon e Number [address] Hepatic Function Panel (11/21/2021 8:38 AM EDT) P athologist Signature Total Protein 6.5 6.1 - 8.0 [facility] g/dL [facility] LABORATORY Albumin 3.2 3.2 - 5.2 [facility] g/dL [facility] LABORATORY AST 13 0 - 39 [place] unit/L [facility] ALT 10 0 - 55 [facility] unit/L [facility] LABORATORY Alk Phos 76 40 - 130 [facility] unit/L [facility] LABORATORY Total 0.4 0.2 - 1.3 [facility] Bilirubin mg/dL [facility] LABORATORY Bili, Direct 0.1 0.0 - 0.3 [facility] [place] mg/dL [facility] LABORATORY Specimen Anatomical Collection Method Collection Time Receive d Time (Source) Location / / Volume Laterality Blood 11/21/2021 8:38 AM 2 8:52 EDT AM EDT Resulting Agency Comment Spec In Lab Sommer Bains APRN CHEMISTRY ORDERABLES Performing Organization Address City/[facility]/[place] [address] Phosphorus (11/21/2021 8:38 AM EDT) P athologist Signature Phosphorus 3.5 2.5 - 4.5 [facility] mg/dL [facility] LABOR[facility]ORY Specimen Anatomical Collection Method Collection Time Receive d Time (Source) Location / / Volume Laterality Blood 11/21/2021 8:38 AM 8:52 EDT AM EDT Resulting Agency Comment Spec In Lab Afshin Rogers MD CHEMISTRY ORDERABLES Performing Organization Address City/State/Z[place] [address] (ABNORMAL) Basic Metabolic Panel (non-fasting) (11/21/2021 8:38 AM EDT) athologist Signature Glucose Lvl 89 65 - 199 [facility] mg/dL [facility] LABORATORY Comment: Diabetes: >=200 mg/dL plus symp toms BUN 6 (L) 10 - 20 mg/dL [facility] LABORATORY Creatinine 0.93 0.80 - 1.50 mg/dL [facility] LABORATORY Sodium 141 135 - 145 mmol/L [facility] LABORATORY Potassium 3.3 (L) 3.5 - 5.0 mmol/L [facility] LABORATORY Comment: Please note: ??Patients with WBC >100,00 0 may have falsely elevated Potassium levels. ??For accurate Potassium quantif ication in these patients send serum separator tube (gold top) for subsequent determinations. ??Contact the Clinical Chemistry Laboratory if there are any qu estions. Chloride 104 98 - 107 mmol/L [facility] LABORATORY CO2 25 22 - 31 mmol/L [facility]OR[facility] Anion Gap 12 5 - 15 mmol/L [facility] LABORATORY Calcium 8.8 8.5 - 10.5 mg/dL [facility] LABORATORY Estimated GFR 89 >=60 mL/min/1.73 m?? [facility] LABOR[facility] Comment: This patient's estimated GFR [...] Organization Address City/State/ZIP Code Phon e Number [address] Phosphorus (11/20/2021 6:22 PM EDT) P athologist Signature Phosphorus 2.8 2.5 - 4.5 [facility] mg/dL [facility] LABORATORY Specimen Anatomical Collection Method Collection Time Receive d Time (Source) Location / / Volume Laterality Blood 11/20/2021 6:22 PM 2 6:31 EDT PM EDT Resulting Agency Comment Spec In Lab Afshin Rogers MD CHEMISTRY ORDERABLES Performing Organization Address City/[facility]/[place] [address] EKG 12 Lead (11/20/2021 12:47 PM EDT) Component Value Ref Range Test Analysis Performed Pathologis t Method Time At Signature Ventricular rate 98 BPM MUSE SYSTEM Atrial Rate 98 BPM MUSE SYSTEM P-R Interval 160 ms MUSE SYSTEM QRS Duration 82 ms MUSE SYSTEM Q-T Interval 406 ms MUSE SYSTEM QTC Calculated 518 ms MUSE SYSTEM (Bezet) Calculated P [place] 60 degrees MUSE SYSTEM Calculated R [place] 7 degrees MUSE SYSTEM Calculated T [place] 24 degrees MUSE SYSTEM INTERPRETATION Normal sinus [...] 11/20/2021 2:01 PM EDT PM EDT Sommer Mya Bains APRN ECG ORDERABLES Performing Organization Address City/[facility]/ZIP Code Phon e Number MUSE SYSTEM Vancomycin, trough (11/20/2021 8:48 AM EDT) P athologist Signature Vanc Trough 18.8 mg/L [facility] LABORATORY Comment: Therapeutic range for complicated [...] Montoya MD CHEMISTRY ORDERABLES Performing Organization Address City/[facility]/ZIP Code Phon e Number [address] Phosphorus (11/20/2021 8:48 AM EDT) P athologist Signature Phosphorus 2.7 2.5 - 4.5 [facility] mg/dL [facility] LABORATORY Specimen Anatomical Collection Method Collection Time Receive d Time (Source) Location / / Volume Laterality Blood 11/20/2021 8:48 AM 2 9:15 EDT AM EDT Resulting Agency Comment Spec In Lab Afshin Rogers MD CHEMISTRY ORDERABLES Performing Organization Address City/[facility]/ZIP Code Phon e Number [address] (ABNORMAL) Differential, Automated (11/20/2021 4:59 AM EDT) Patholo gist Method Time Signature Neutrophils % 78.8 % [facility] LABORATORY Neutr Abs (ANC) 8.46 (H) 1.70 - [facility] 6.10 [facility] x10(3[facility] LAB[facility] Lymphocytes % 8.6 % [facility] LABORATORY Lymphocytes Abs 0.9 0.9 - 3.2 [facility] x10(3)/[facility] LABORATORY Monocytes % 7.6 % [facility] LABORATORY Monocyte Abs 0.8 0.3 - 0.9 [facility] x10(3)/[facility] LABORATORY Eosinophils % 3.9 % [facility] LABORATORY Eosinophils Abs 0.4 0.0 - 0.4 [facility] x10(3)/[facility] LABORATORY Basophils % 0.6 % [facility] LABORATORY Basophils Abs 0.1 0.0 - 0.1 [facility] x10(3)/[facility] LABORATORY Immature Gran % 0.50 % [facility] LABORATORY Comment: Immature granulocytes(IG's)percentage an d absolute count will include metamyelocytes, myelocytes, and promyelo cytes. Blood smears from CBCs yielding IG's will be scanned manually for concor dance. If this scan disagrees with the automated IG or if promyelocytes are not ed, a manual differential will be performed. Shannan Gran Abs 0.05 (H) 0.00 - 0.04 x10(3)/[facility] LABORATORY Specimen Anatomical Collection Method Collection Time Receive d Time (Source) Location / / Volume Laterality Blood 11/20/2021 4:59 AM 2 5:23 EDT AM EDT Resulting Agency Comment Spec In Lab Valentina Montoya MD HEMATOLOGY ORDERABLES Performing Organization Address City/State/[place] [address] (ABNORMAL) Hemogram (11/20/2021 4:59 AM EDT) Analysis Performed At Patho logist Time Signature WBC 10.7 (H) 4.0 - 9.5 [facility] x10(3)/[facility] LABORATORY RBC 4.10 (L) 4.58 - [facility] 5.54 [facility] x10(6)/[facility] LABORATORY Hemoglobin 13.5 (L) 13.7 - [facility] 16.5 g/dL [facility] LABORATORY Hematocrit 40.6 40.5 - [facility] 48.5 % [facility] LABORATORY MCV 99.0 (H) 82.9 - [facility] 93.1 [facility] LABORATORY MCH 32.9 (H) 27.5 - [place] KIRTI 32.1 pg [facility] LABORATORY MCHC 33.3 32.0 - [facility] 35.7 g/dL [facility] LABORATORY Platelets 216 145 - 357 [facility] x10(3)/[facility] LABORATORY RDWSD 50.1 (H) 36.0 - [facility] LAB[facility]ATORY RDWCV 13.8 11.4 - [facility] 13.8 % [facility] LABORATORY MPV 10.2 7.6 - 12.9 [facility] LABORATORY nRBC % Auto 0.0 % [facility] LABORATORY nRBC Abs Auto 0.000 0.000 - [facility] 0.000 [facility] x10(3)/[facility] LABORATORY Specimen Anatomical Collection Method Collection Time Receive d Time (Source) Location / / Volume Laterality Blood 11/20/2021 4:59 AM 5:23 EDT AM EDT Resulting Agency Comment Spec In Lab Valentina Montoya MD HEMATOLOGY ORDERABLES Performing Organization Address City/State/[place] [address] (ABNORMAL) Basic Metabolic Panel (non-fasting) (11/20/2021 4:59 AM EDT) athologist Signature Glucose Lvl 69 65 - 199 [facility] mg/dL [facility] LABORATORY Comment: Diabetes: >=200 mg/dL plus symp toms BUN 8 (L) 10 - 20 mg/dL [facility] LABORATORY Creatinine 0.80 0.80 - 1.50 mg/dL [facility] LABORATORY Sodium 134 (L) 135 - 145 mmol/L [facility] LABORATORY Potassium Not Perf 3.5 - 5.0 [facility] LABORATORY Comment: Unable to quantitate due to sample hemol ysis. ??Sample redraw suggested. Called by: sf, Read back by: Jenni mondragon ate/Time:11/20/21 06:14. Please note: ??Patients with WBC >100,00 0 may have falsely elevated Potassium levels. ??For accurate Potassium quantif ication in these patients send serum separator tube (gold top) for subsequent determinations. ??Contact the Clinical Chemistry Laboratory if there are any qu estions. Chloride 96 (L) 98 - 107 mmol/L [facility] LABORATORY CO2 27 22 - 31 mmol/L [facility] Anion Gap 11 5 - 15 mmol/L [facility] LABORATORY Calcium 9.1 8.5 - 10.5 mg/dL [facility] LABORATORY Estimated GFR 96 >=60 mL/min/1.73 m?? [facility] Comment: This patient's estimated GFR [...] Organization Address City/State/[place] [address] (ABNORMAL) Differential, Automated (11/19/2021 5:56 AM EDT) [facility] gist Method Time Signature Neutrophils % 78.0 % [facility] LABORATORY Neutr Abs (ANC) 10.20 (H) 1.70 - [facility] 6.10 [facility] x10(3[facility] LAB[facility]ATORY Lymphocytes % 10.6 % [facility] LABORATORY Lymphocytes Abs 1.4 0.9 - 3.2 [facility] x10(3)/[facility] LABORATORY Monocytes % 8.0 % [facility] LABORATORY Monocyte Abs 1.0 (H) 0.3 - 0.9 [facility] x10(3)/[facility] LABORATORY Eosinophils % 2.4 % [facility] LABORATORY Eosinophils Abs 0.3 0.0 - 0.4 [facility] x10(3)/[facility] LABORATORY Basophils % 0.5 % [facility] LABOR[facility]ORY Basophils Abs 0.1 0.0 - 0.1 [facility] x10(3)/[facility] LABORATORY Immature Gran % 0.50 % [facility]OR[facility]ORY Comment: Immature granulocytes(IG's)percentage an d absolute count will include metamyelocytes, myelocytes, and promyelo cytes. Blood smears from CBCs yielding IG's will be scanned manually for concor dance. If this scan disagrees with the automated IG or if promyelocytes are not ed, a manual differential will be performed. Shannan Gran Abs 0.06 (H) 0.00 - 0.04 x10(3)/[facility] LABORATORY Specimen Anatomical Collection Method Collection Time Receive d Time (Source) Location / / Volume Laterality Blood 11/19/2021 5:56 AM 2 6:16 EDT AM EDT Resulting Agency Comment Spec In Lab Valentina Montoya MD HEMATOLOGY ORDERABLES Performing Organization Address City/State/[place] [address] (ABNORMAL) Hemogram (11/19/2021 5:56 AM EDT) Analysis Performed At Patho logist Time Signature WBC 13.1 (H) 4.0 - 9.5 [facility] x10(3)/[facility] LABORATORY RBC 3.98 (L) 4.58 - [facility] 5.54 [facility] x10(6)/[facility] LABORATORY Hemoglobin 12.7 (L) 13.7 - [place] [facility] 16.5 g/dL [facility] LABORATORY Hematocrit 39.4 (L) 40.5 - [place] HERN[place]NDEZ 48.5 % [facility] LABORATORY MCV 99.0 (H) 82.9 - [place] HERNÁNDEZ 93.1 [facility] LABORATORY MCH 31.9 27.5 - [place] LATHAMCOCK 32.1 pg [facility] LABORATORY MCHC 32.2 32.0 - [place] HERNÁNDEZ 35.7 g/dL [facility] LABORATORY Platelets 217 145 - 357 [facility] x10(3)/[facility] LABORATORY RDWSD 51.4 (H) 36.0 - [facility] 45.0 [facility] LABORATORY RDWCV 14.0 (H) 11.4 - [facility] 13.8 % [facility] LABORATORY MPV 9.4 7.6 - 12.9 [facility] LABORATORY nRBC % Auto 0.0 % [facility] LABORATORY nRBC Abs Auto 0.000 0.000 - [place] KIRTI 0.000 [facility] x10(3)/[facility] LABORATORY Specimen Anatomical Collection Method Collection Time Receive d Time (Source) Location / / Volume Laterality Blood 11/19/2021 5:56 AM 2 6:16 EDT AM EDT Resulting Agency Comment Spec In Lab Valentina Montoya MD HEMATOLOGY ORDERABLES Performing Organization Address City/State/[place] [address] (ABNORMAL) Sedimentation rate (11/19/2021 5:56 AM EDT) P athologist Signature Sed Rate 104 (H) 2 - 37 [facility] mm/hr [facility] LABORATORY Comment: Effective April 21, 2019 new [...] Organization Address City/State/[place] [address] (ABNORMAL) Basic Metabolic Panel (non-fasting) (11/19/2021 5:56 AM EDT) P athologist Signature Glucose Lvl 87 65 - 199 [facility] mg/dL [facility] LABORATORY Comment: Diabetes: >=200 mg/dL plus symp toms BUN 12 10 - 20 mg/dL [facility] LABORATORY Creatinine 0.98 0.80 - 1.50 mg/dL [facility] LABORATORY Sodium 139 135 - 145 mmol/L [facility]OR[facility]ORY Potassium 3.5 3.5 - 5.0 mmol/L [facility] LABORATORY Comment: Please note: ??Patients with WBC >100,00 0 may have falsely elevated Potassium levels. ??For accurate Potassium quantif ication in these patients send serum separator tube (gold top) for subsequent determinations. ??Contact the Clinical Chemistry Laboratory if there are any qu estions. Chloride 98 98 - 107 mmol/L [facility] CO2 34 (H) 22 - 31 mmol/L [facility] Anion Gap 7 5 - 15 mmol/L [facility]ORY Calcium 9.0 8.5 - 10.5 mg/dL [facility]ORATORY Estimated GFR 84 >=60 mL/min/1.73 m?? [facility] Comment: This patient's estimated GFR [...] Address City/State/ZIP Code Phon e [place] [address] [facility] [address] Surgical Pathology Report (11/18/2021 8:56 PM EDT) Component Value Ref Test Analysis Performed At [facility] Range Method Time Signature Surgical [id number] ? Location: 1WST; 0110; B [facility] Pathology BENEDICT Report The signing pathologist has (i) examined [...] MD Verified: ??11/28/2021 12:13 ??Pathologist Performed at: ??-[facility], [place], [place] SPECIMEN(S) SUBMITTED A - ??Right great [...] for decalcification: A1-A5. Touch prep(s) are prepared. Rehab Services Aide sections in 6 cassettes as follows: ?A1-A4: [...] MD PATHOLOGY/CYTOLOGY ORDERABLE S Performing Organization Address City/[facility]/[place] [address] Specimen to Pathology (11/18/2021 8:56 PM EDT) Specimen Anatomical Collection Method Collection Time Receive d Time (Source) Location / / Volume Laterality AP Specimen 11/18/2021 8:56 PM 8:56 EDT PM EDT Narrative [facility] LABORAT ORY - 11/18/2021 8:56 PM EDT Specimen requisition ordered. ??Separate Pathology report to follow Valentina Montoya MD PATHOLOGY/CYTOLOGY ORDERABLE S Performing Organization Address City/[facility]/[place] [address] (ABNORMAL) Anaerobic Culture (11/18/2021 8:52 PM EDT) [facility] Method Time Signature Anaerobic Rare [facility] Culture Bacteroides KIRTI species (A) [facility] LABORATORY Organism Bacteroides [place] species (A) [facility] LABORATORY Specimen Anatomical Collection Method Collection Time Receive d Time (Source) Location / / Volume Laterality Stump STRUCTURE OF RIGHT 11/18/2021 8:52 PM 02/2022 FOOT / Unknown EDT 10:42 PM EDT Comment: Cut end of RIGHT metatarsal bon e. Resulting Agency Comment Spec In Lab Sammy Baker MD MICROBIOLOGY - GENERAL ORDER SILAS Performing Organization Address City/[facility]/ZIP [place] [address] Abscess/Wound Aspirate Culture (11/18/2021 8:52 PM EDT) Component Value Ref Test Analysis Performed At [facility] Utilize Health Range Method Time Signature Abscess/Wound No growth [place] Aspirate KIRTI Culture [facility] LABORATORY Gram Stain Few Neutrophils seen [place] No microorganisms seen. [facility] Results called to and read back by Sd Cedillo ??11/18/21 23:17:2 4 [facility] LABORATORY Specimen Anatomical Collection Method Collection Time Receive d Time (Source) Location / / Volume Laterality Stump STRUCTURE OF RIGHT 11/18/2021 8:52 PM 02/2022 FOOT / Unknown EDT 10:42 PM EDT Comment: Cut end of RIGHT metatarsal bon e. Resulting Agency Comment Spec In Lab Sammy Baker MD MICROBIOLOGY - GENERAL ORDER SILAS Performing Organization Address City/[facility]/[place] [address] (ABNORMAL) Anaerobic Culture (11/18/2021 8:52 PM EDT) [facility] Utilize Health Method Time Signature Anaerobic Many [place] Culture Bacteroides BENEDICT species () [facility] LABORATORY Organism Bacteroides [place] species (A) [facility] LAB[facility]ORY Specimen Anatomical Collection Method Collection Time Receive d Time (Source) Location / / Volume Laterality Abscess TOE STRUCTURE / 11/18/2021 8:52 PM 2021 Unknown EDT 10:41 PM EDT Comment: #2 RIGHT great toe. Resulting Agency Comment Spec In Lab Sammy Baker MD MICROBIOLOGY - GENERAL ORDER SILAS Performing Organization Address City/State/[place] [address] (ABNORMAL) Abscess/Wound Aspirate Culture (11/18/2021 8:52 PM EDT) Component Value Ref Test Analysis Performed At [facility] Util[facility] Range Method Time Signature Abscess/Wound Many Proteus mirabilis MAR Y Aspirate Many Streptococcus milleri, anginosis group KIRTI Culture (A) [facility] LABORATORY Gram Stain Many Neutrophils seen [place] Many Gram Positive Cocci seen KIRTI Many Gram Negative Rods seen [facility] Results called to and read back by Sd Cedillo ??11/18/21 23:16:5 0 [facility] (A) LABORATORY Organism Proteus mirabilis [place] (A) [facility] LABORATORY Organism Streptococcus [place] milleri, BENEDICT anginosis group [facility] () [facility] LABORATORY Organism Gram Positive [place] Cocci (A) [facility] LABOR[facility]ORY Organism Gram Negative [place] Rods (A) [facility] LAB[facility]ORY Specimen Anatomical Collection Method Collection [...] Organization Address City/State/Z[place] [address] (ABNORMAL) Anaerobic Culture (11/18/2021 8:52 PM EDT) [facility] Method Time Signature Anaerobic Many [place] Culture Bacteroides BENEDICT species ([facility] LABORATORY Organism Bacteroides [place] species (A) [facility] LABORATORY Specimen Anatomical Collection Method Collection Time Receive d Time (Source) Location / / Volume Laterality Abscess TOE STRUCTURE / 11/18/2021 8:52 PM 2021 Unknown EDT 10:43 PM EDT Comment: #1 RIGHT great toe. Resulting Agency Comment Spec In Lab Sammy Baker MD MICROBIOLOGY - GENERAL ORDER SILAS Performing Organization Address City/State/[place] [address] (ABNORMAL) Abscess/Wound Aspirate Culture (11/18/2021 8:52 PM EDT) Component Value Ref Test Analysis Performed At [facility] gist Range Method Time Signature Abscess/Wound Many Proteus mirabilis MAR Y Aspirate Rare Staphylococcus aureus HIT [facility] Culture Many Streptococcus [facility], [facility] Gram Stain Many Neutrophils seen [facility] Many Gram Positive Cocci seen BENEDICT Many Gram Negative Rods seen EMORIAL Results called to and read back by Sd Cedillo ??11/18/21 23:16:1 6 [facility] ( LABORATORY Organism Staphylococcus LOUISA aureus (A) [facility] Organism Proteus mirabilis [facility] () [facility] Organism Streptococcus LOUISA milleri, [facility] Organism Gram Positive LOUISA Cocci (A) [facility] Organism Gram Negative LOUISA Rods (A) [facility] Specimen Anatomical Collection Method Collection [...] Comment: Gentamicin is not a ppropriate for [place]-therapy. Staphylococcus aureus Oxacillin VITEK 2 METHOD Sensitive [...] Organization Address City/State/ZIP Code Phon e Number [place] [id number] CT Lower Extremity w [...] who have questions please contact the health healthcare consulting manager that requested your imaging first. ? Narrative [...] ho have questions please contact the health healthcare consulting manager that requested your imaging first. Lorrie Lundberg MD IMG CT ORDERABLES Hepatic Function Panel (11/18/2021 5:25 PM EDT) Analysis Performed At Patho logist Time Signature Total Protein 6.6 6.1 - 8.0 [facility] g/dL [facility] Albumin 3.3 3.2 - 5.2 [facility] g/dL [facility] AST Not Perf 0 - 39 [facility] Comment: Unable to quantitate due to sample hemol ysis. ??Sample redraw suggested. Called by: dahlia, Read back by: rukhsana ornelas, Date/Time:11/18/21 20:09. ALT 8 0 - 55 unit/L [facility] Alk Phos 91 40 - 130 unit/L [facility] Total Bilirubin 0.4 0.2 - 1.3 mg/dL [facility] Bili, Direct Not Perf 0.0 - 0.3 [facility] Comment: Unable to [...] Organization Address City/State/[place] [address] (ABNORMAL) Basic Metabolic Panel (non-fasting) (11/18/2021 5:25 PM EDT) P athologist Signature Glucose Lvl 113 65 - 199 [facility] mg/dL [facility] Comment: Diabetes: >=200 mg/dL plus symp toms BUN 13 10 - 20 mg/dL [facility] Creatinine 0.93 0.80 - 1.50 mg/dL [facility] Sodium 136 135 - 145 mmol/L [facility] Potassium 4.2 3.5 - 5.0 mmol/L [facility] Comment: Please note: ??Patients with WBC >100,00 0 may have falsely elevated Potassium levels. ??For accurate Potassium quantif ication in these patients send serum separator tube (gold top) for subsequent determinations. ??Contact the Clinical Chemistry Laboratory if there are any qu estions. Chloride 96 (L) 98 - 107 mmol/L [facility] CO2 32 (H) 22 - 31 mmol/L [facility] Anion Gap 8 5 - 15 mmol/L [facility] Calcium 9.0 8.5 - 10.5 mg/dL [facility] Estimated GFR 89 >=60 mL/min/1.73 m?? [facility] Comment: This patient's estimated GFR [...] Organization Address City/State/[place] [address] (ABNORMAL) CRP, acute inflammation (11/18/2021 5:25 PM EDT) P athologist Signature CRP 265.6 (H) <=4.9 mg/L [facility] Specimen Anatomical Collection Method Collection Time Receive d Time (Source) Location / / Volume Laterality Blood 11/18/2021 5:25 PM 5:36 EDT PM EDT Resulting Agency Comment Spec In Lab Lorrie Lundberg MD CHEMISTRY ORDERABLES Performing Organization Address City/State/[place] [address] documented in this encounter [...] PRN, Starting on Fri11/18/21 at 2148, Until Christina 11/29/21 at 2006, [...] PRN, Starting on Fri11/27/21 at 1855, Until Christina 11/29/21 at 2006, Muscle spasms, Routine DAPTOmycin (Cubicin) 700 mg in New Bag 11/29/2021 2:28 PM EDT 700 mg 128 mL/hr sodium chloride 0.9% 64 mL 700 mg, Intravenous, EVERY 24 HOURS, First dose on Fri11/27/21 at 1430, Until Discontinued, Administer over 30 Minutes, Indication for (Active or Suspected): Bone/Joint, Restricted Antibiotic: Please indicate the most appropriate choice: ID Approval by Donal Serrano New 11/28/2021 4:09 PM EDT 700 mg 128 [...] 3 mg, Oral, NIGHTLY PRN, Starting on 11/18/21 at 2259, Until Fri11/29/21 at 2005, Sleep, Routine Given 11/21/2021 8:55 PM EDT [...] Claudia Long RN)0616 (Given - Provider: Claudia Long RN)1206 (Given - Provider: Malinda Díaz, VINCENT)1753 [...] Maximum daily dose of acetaminophen from all [facility] rces not to exceed 4,000 mg. When ordered for pain, acetaminophen should be given even when other ordered pain medications are indicated., Routine busPIRone (Buspar) tablet 15 mg 0832 (Given - Provider : Amy Yates LPN)205 (Given - Provider: Bridgette Cho, VINCENT) 0818 (Given - Provider: Malinda íDaz RN)2207 (Given - Provider: Louisa Cardenas RN) 0929 (Given - Provider: Bernice Coronel, RN) 15 mg, Oral, 2 TIMES DAILY, [...] 2058 (Given - Provider: Bridgette Cho, VINCENT) 2205 (Given - Provider: Louisa Cardenas RN) 40 mg, Subcutaneous, NIGHTLY, First dose on Fri11/19/21 at 2100, Until Discontinued, Routine ertapenem (INVanz) 1 g vial attach to sodium chloride 0.9% 100 mL Mini-Bag Plus 1440 (New Bag - Provider: Carissa Cordova RN)1510 (Stopped - Provider: Carissa Cordova, VINCENT) 0834 (New Bag - Provider: Malinda giang [...] Amy Yates LPN)1414 (Given - Provider: Carissa Cordova, VINCENT)2059 (Given - Provider: Bridgette Cho RN) 0816 [...] Routine LORazepam (Ativan) tablet 0.5 mg (COMPLETED) 133 (Given - Provider: Bernice Coronel, VINCENT) 0.5 [...] mg 2058 (Given - Provi angie: Bridgette Cho RN) 2206 (Given - Provider: Louisa Cardenas RN) 30 mg, Oral, NIGHTLY, First dose on Fri11/19/21 at 0015, Until Discontinued, Routine nicotine (Nicoderm CQ) 21 mg/24 hr patch 21 mg(Linked Group 1) 0832 (Patch Applied - Provider: Amy Yates LPN) 0838 (Patch Applied - Provider: Malinda Díaz, VINCENT) 0945 (Patch Applied - Provider: Bernice Coronel, RN) 21 mg (1 patch), Transdermal, DAILY, Fir st dose on Fri11/19/21 at 0900, Until Discontinued, Apply new patch to nonhairy, clean, dry skin on the upper body or upper outer arm; each patch should be applied to a different site , Routine nicotine (NICODERM CQ) 21 mg/24 hr patch Patch Removal (Linked Group 1) 09 (Patch Removed - Provider: Amy Yates LPN) 08 (Patch Removed - Provider: Malinda Díaz, VINCENT) 09 (Patch Removed - Provider: Bernice Coronel, RN) Transdermal, DAILY, First dose on 04/02 at 0900, Until Discontinued, Remove nicotine 21 mg/24 hr patch nicotine (NICODERM CQ) 21 mg/24 hr patch Patch Verific ation(Linked Group 1) 09 (Patch (dose and location) verified - Provider: Amy Yates LPN)2099 (Patch (dose and location) verified - Provider: Bridgette Cho RN) 0822 (Patch (dose and location) verified - Provider: Malinda Díaz RN)2100 (Patch (dose and location) verified - Provider: Louisa Cardenas RN) 0900 (Patch (dose and location) verified - Provider: Bernice Coronel, RN) Transdermal, 2 TIMES DAILY, First dose o n 11/19/21 at 0800, Until Discontinued, Verify nicotine 21 mg/24 hr patch pantoprazole EC (Protonix) tablet 40 mg 0832 (Given - Provider: Amy Yates LPN)2058 (Given - Provider: Bridgette Cho, VINCENT) 08 (Given - Provider: Malinda Díaz, VINCENT)220 (Given - Provider: Louisa Cardenas, VINCENT) 09 (Given - Provider: Bernice Coronel, RN) 40 mg, Oral, 2 TIMES DAILY, First dose o n 11/19/21 at 0000, Until Discontinued, DO NOT CRUSH OR OPEN, Routine potassium chloride 10 mEq in sterile water 100 mL infusion ( COMPLETED) 0440 (New Bag - Provider: Claudia Long, VINCENT)0617 (Stopped - Provider: Claudia Long, RN)0618 (New Bag - Provider: Claudia Long, VINCENT)0746 (Stopped - Provider: Malinda Díaz, VINCENT)0823 (New Bag - Provider: Malinda Díaz, VINCENT) 10 mEq, Intravenous, EVERY 2 HOURS, 3 do ses, First dose on Fri11/28/21 at 0500, Last dose on Fri11/28/21 at 0900, Administer over 60 Minutes, Warning Vesicant/Irritant Medication 0923 (Stopped - Provid er: Malinda Díaz, VINCENT) potassium chloride ER (K-Dur/Klor-Con) tablet 40 mEq [...] Provider: Malinda Díaz RN)220 (Given - Provider: Louisa Cardenas RN) 0930 [...] duonebs, Routine cyclobenzaprine (Flexeril) tablet 5 mg 1922 (Given - P rovider: Bridgette Cho, VINCENT) [...] mL) injection syr mejia 1 mg (CANCELED) 248 (Given - Provider: Bridgette Cho, VINCENT) 1 [...] 0045 (See Alternative - Provider: Angelica Pat, RN) 4 mg, Oral, EVERY 4 HOURS PRN, Starting on Fri11/27/21 at 1420, Until Fri11/29/21 at 2005, Pain, for severe pain (7-10), May give an additional 2 mg once if pain not relieved in 30-60 minutes., Routine hydrOXYzine (Atarax) tablet 25 mg 1607 ( Given - Provider: Malinda Díaz, RN) 25 mg, Oral, DAILY PRN, Starting [...] documented as of this encounter Care Teams Supervisor Quality Control Relationship Specialty Start Date End Date Brian Fall APRN PCP - General Internal Medicine 04/07/[address] [place] [phone] documented as of this encounter
--- OUTSIDE RECORDS SUMMARY | 2021-11-30 08:18 | XMS_ITS | Encounter Summary ---
:1955 [place] [address] Care Team Providers Name Role Phone rBian Fall APRN Primary Care Provider Reason for Visit Auth/Cert Specialty Diagnoses / Procedures Referred By Contact Refer red To Contact Diagnoses Necrotizing fasciitis Cellulitis of leg, right Necrotic toes Infected Toe Valentina Montoya MD [place] [phone] Referral ID Status Reason Start Date Expiration Date Visits Requ ested Visits Authorized [id number] 1 1 Encounter Details Date Type Department Care Team Description 11/21/2021 Anesthesia Event Main Operating Room Jeremías Hammond MD [facility] [place] [address] [facility] Paulina Clark MD [facility] [place] [address] [place] [address] Anesthesia Record Procedure Summary Procedure Name Responsible Anesthesia Start Anesthesia Stop Anesthesiologist Time Time DEBRIDEMENT SKIN, SUBCU, MUSCLE, BONE, LOWER EXTREMITY (WRVU 4.1) (Right ) Events Date Time Event Comment 11/21/2021 1429 Name Total BUpivacaine 0.5% 20 mL Agents No agents on file. Blood No blood administrations on file. Lines, Drains, and Airways Type Details Placement Removal Incision 11/18/21; 2046; Right; 11/18/212046 by Marjorie, first toe; other (see Mila Esquivel RN comments); amputation site. Incision 11/23/21; Right; first toe 11/23/21 0000 by Yoana Henley RN PICC Line - Single Lumen 11/27/21; 1607; basilic 11/27/21 1607 b [address] [place], vein (medial side of arm), Khadijah Thompson RN right; pressure injectable catheter; 4 Fr ([id number]); 0 cm; 40 cm; 40 cm; placement verified by x-ray; superior vena cava; [id number]; distraction, intradermal injection documented in this encounter Social History Tobacco [...] as of this encounter OR Notes Anesthesia Procedure Notes - Ed Obrien MD - 11/21/2021 3:08 PM EDT Associated Order(s): Anesthesia Block Anesthesia Block Date/Time: 11/21/2021 2:40 PM Performed by: Ed Obrien MD Authorized by: Jeremías Bergman MD Start Time: 11/21/2021 2:40 PM End Time: 11/21/2021 2:45 PM Patient Location: Block Room Indication: Post-op Pain Control Post-op pain management at the request of surgeon. Block Type: Sciatic sciatic/ popliteal nerve block Laterality: Right Position: Supine Prep: Chlorhexidine, patient draped and mask, cap, sterile gloves, hand hygeine Skin Anesthetic: Skin Anesthetic: Lidocaine 1% dose: 3 Block Technique: SonoPlex 21 10 cm Single-Shot: Single-shot Local Anesthetic Volume(s) Injected for Nerve Block: BUpivacaine 0.5% - Perineural 20 mL - 11/21/2021 2:45:00 PM Nerve Sensory/MotorTest: Events: no complications Staff: Fellow:: Ed Obrien MD Attending Physician:: Jeremías Bergman MD Notes: Target structures, needle, and local anesthetic spread were visualized under US guidance for the duration of the procedure. No blood aspirated, no pain on injection, no paresthesias. No needle to nerve contact was observed on ultrasound. Anesthesia Preprocedure Evaluation - Jeremías Bergman MD - 11/20/2021 4:12 PM EDT Pre-Anesthesia Evaluation for: Mahin Ramos a 66 y.o. male. Procedure(s): DEBRIDEMENT SKIN, SUBCU, MUSCLE, BONE, LOWER EXTREMITY (WRVU 4.1) MODIFIER WOUND VAC Patient Active Problem List Diagnosis Date Noted ??? Pruritic rash 08/22/2020 ? ? S/p right great toe amp, I&D, vac 11/18/21 (Samuel) 11/18/2021 ??? Cellulitis 06/07/2020 ??? Osteomyelitis 03/09/2020 ??? Neuropathic ulcer of toe of right foot with fat layer exposed 01/06/2020 ??? Neuropathic ulcer of foot, right, with fat layer exposed 11/11/2019 ??? Patient has active durable power of state's attorney (DPOA) designee for healthcare 05/29/2019 ??? Methadone [...] 12.71) performed by Geovanna Lewis MD at [facility] MAIN OR ??? PRO AMPUTATION TOE, MT-P JT Right 11/18/2021 AMPUTATION TOE, METATARSO-PHALANGEAL JOINT (WRVU 5.82) performed by Sammy Baker MD at [facility] ELAYNE ??? PRO TOTAL KNEE ARTHROPLASTY Left 12/13/2015 @TOTAL KNEE ARTHROPLASTY performed by Gordon Mallory MD at [facility] MAIN OR ??? PRO UPPER GI ENDOSCOPY, DIAGNOSTIC Bilateral 08/17/2015 EGD, UPPER GI ENDOSCOPY performed by Trev Hong MD at [facility] ENDOSCOPY ??? REVISION TOTAL HIP ARTHROPLASTY [...] Neck ROM: full Cardiovascular Assessment: Rhythm: regular Pulmonary Assessment: unlabored breathing Dental Assessment: (+) edentulous, upper dentures and lower dentures Misc Assessment: IV access: Peripheral line Last Filed Perioperative Cognitive Screening None Anesthesia Plan: ASA 4 general, with a(n) intravenous induction 66 yo male here for right foot I and D and wound vac. S/p partial amp for osteomyelitis/nec fasc 2 days ago. Patient progressively more agitated and confused during the day. Unclear if ETOH or opiate withdrawal contributing. NPO. PMH: current smoker, anxiety, EtOH abuse, chronic pain on methadone daily and gabapentin daily, cirrhosis history (INR and plats WNL), hep C, HTN, COPD, neuropathy PSH: spine surgery, TKA under general, NATHANAEL, endos Plan : GA with LMA or ETT. PNB for post op pain control per surgeon request. Serial consent from . Region - Other Informed Consent: Anesthetic plan and risks discussed with spouse and patient. Plan discussed with MANAGER CALL and resident. Anesthesia Screening documented in this encounter Plan of Treatment Upcoming Encounters Date Type Specialty Care Team Description 12/11/2021 Appointment Radiology 12/11/2021 Office Visit Orthopaedics Marion Tavera APRN [facility] DR ORTHOPAEDIC SURG [place], [place] 0[address] (Wo rk) 01/15/2022 Appointment Radiology Atkins, Stiven T , MD [facility] Pulmonary [place] [phone] (Wo rk) Scheduled Procedures Name Priority Associated [...] Understanding Action Plan 9:07 AM EDT) [facility] Note: Formatting of this note might be d ifferent from the original. Patient Goal: To experience less side ef fects than his past regimen of Peg and Ribavirin Timeframe to meet goal: 3 months of ther apy documented as of this encounter Procedures Procedure Name Priority Date/Time Associated Diagnosis Comme nts ANESTHESIA BLOCK Routine 11/21/2021 2:40 PM Resul ts for this EDT procedure are i n the results section. documented in this encounter Results Anesthesia Block (11/21/2021 2:40 PM EDT) Narrative Jeremías Bergman MD - 11/21/2021 2:40 PM EDT Ed Obrien MD ? 11/21/2021 ??3:10 PM Anesthesia Block Date/Time: 11/21/2021 2:40 PM Performed by: Ed Obrien MD Authorized by: Jeremías Bergman MD Start Time: ??11/21/2021 2:40 PM End Time: ??11/21/2021 2:45 PM Patient Location: ??Block Room Indication: ??Post-op Pain Control Post-op pain management at the request o f surgeon. ?? Block Type: ??Sciatic sciatic/ popliteal nerve block Laterality: ??Right Position: ??Supine Prep: ??Chlorhexidine, patient draped an d mask, cap, sterile gloves, hand hygeine Skin Anesthetic: ??Skin Anesthetic: ??Lidocaine 1% ??dose: ??3 Block Technique: ?? SonoPlex ?? 21 ?? 10 cm ??Single-Shot: ??Single-shot Local Anesthetic Volume(s) Injected for Nerve Block: ?? BUpivacaine 0.5% - Perineural 20 mL - 11/21/2021 2:45:00 PM Nerve Sensory/MotorTest: ??Events: no complications ?? Staff: ??Fellow:: ??Ed Obrien MD ??Attending Physician:: ??Jeremías Bergman MD Notes: ?? Target structures, needle, and local anesthetic spread were visualized under US guidance for the duration of th e procedure. No blood aspirated, no pain on injection, no paresthesias. N o needle to nerve contact was observed on ultrasound. Jeremías Bergman MD [facility] documented in this encounter Visit Diagnoses Not on filedocumented in this encounter Administered Medications Inactive Administered Medications - up to 3 most recent administrations Medication Order MAR Action Action Date Dose Rate Site BUpivacaine (pf) (Marcaine) (5 Given 11/21/2021 2:45 PM EDT 20 m Ls mg/mL) 0.5% injection Perineural, Starting on Fri11/21/21 at 1445, Until Fri11/21/21 at 1445, Anesthesia Intra-op, Routine documented in this encounter Care Teams Experimental Welder Relationship Specialty Start Date End Date Brian Fall APRN PCP - General Internal Medicine 04/07/[address] [place] [phone] documented as of this encounter
--- OUTSIDE RECORDS SUMMARY | 2021-11-30 08:18 | XMS_ITS | Encounter Summary ---
:1955 Author Organization [facility] [place] [address] Care Team Providers Name Role Phone Brian Fall APRN Primary Care Provider Encounter Details Date Type Department Care Team Description 08/08/2021 Telephone Pulmonology at [facility] Sarah Lainez [facility] [place]elin [phone] Social History Tobacco Use Types Packs/Day Years Used Date Current Every Day Smoker Cigars, Cigarettes 1 42 Smokeless Tobacco: Never Used Alcohol Use Standard Drinks/Week Comments Yes 22 (1 standard drink = 0.6 oz pure alcoh ol) Sex Assigned at Date Recorded Not on file documented as of this encounter Plan of Treatment Upcoming Encounters Date Type Specialty Care Team Description 12/11/2021 Appointment Radiology 12/11/2021 Office Visit Orthopaedics Marion Tavera APRN [facility] ORTHOPAEDIC SURG [place], [place] [address] (Wo rk) 01/15/2022 Appointment Radiology Stiven Cervantes MD [facility] Pulmonary Medici nelly [phone] (Wo rk) Scheduled Procedures Name Priority Associated Diagnoses Date/Time DEBRIDEMENT SKIN, SUBCU, MUSCLE, R great toe amp utation, wound LOWER EXTREMITY (WRVU 2.7) closure MODIFIER WOUND VAC R great toe amputation, wound closure documented as of this encounter Goals Goal Patient Goal Associated Recent Patient-Stated? Author Type Problems Progress [facility] Medication Patient On track No Ryan, Compliance and Facing (07/31/2016 Julia Esquivel, Understanding Action Plan 9:07 AM EDT) [facility] Note: Formatting of this note might be d ifferent from the original. Patient Goal: To experience less side ef fects than his past regimen of Peg and Ribavirin Timeframe to meet goal: 3 months of ther apy documented as of this encounter Visit Diagnoses Not on filedocumented in this encounter Care Teams Lan Manager Relationship Specialty Start Date End Date Brian Fall APRN PCP - General Internal Medicine 04/07/[address] [place] [phone] documented as of this encounter
--- OUTSIDE RECORDS SUMMARY | 2021-11-30 08:18 | XMS_ITS | Encounter Summary ---
:1955 Author Organization [place] [address] Care Team Providers Name Role Phone Brian Fall APRN Primary Care Provider Reason for Referral Diagnostic Test (Routine) - Authorized Specialty Diagnoses / Procedures Referred By Contact Refer red To Contact Radiology Diagnoses Smoker Nicotine dependence, cigarettes, uncomplicated Stiven Cervantes MD [facility] Rad Ct Scan Procedures CT Chest Screening Lung Cancer [facility] Dr Espinosa [facility] [place] [address] [place] [address] Referral ID Status Reason Start Expiration Visits Visits Date Date Requested Authorized [id number] Authorized Specialty 08/15/2021 02/14/2023 1 1 Service Requested Encounter Details Date Type Department Care Team Description 08/14/2021 Office Visit Pulmonology at [facility] Stiven Cervantes, Stage 2 moderate COPD by GOL D classification; [facility] Smoker; [facility] Nicotine dependence, cigaret zuhair, uncomplicated [facility] [phone] Pulmonary [phone] [place], [place] [address] Social History Tobacco Use Types Packs/Day Years [...] Sign Reading Time Taken Comments Blood Pressure 147/79 08/14/2021 8:32 AM EDT Pulse 63 08/14/2021 8:32 AM EDT Temperature 36.3 ??C (97.4 ??F) 08/14/2021 8:32 AM EDT Respiratory Rate 16 08/14/2021 8:32 AM EDT Oxygen Saturation 95% 08/14/2021 8:32 AM EDT Inhaled Oxygen Concentration - - Weight 95.5 kg (210 lb 9.6 oz) 08/14/2021 8:32 AM EDT Height 175.3 cm (5' 9) 08/14/2021 8:32 AM EDT Body Mass Index 31.1 08/14/2021 8:32 AM EDT documented in this encounter Progress Notes Stiven Cervantes MD - 08/14/2021 8:30 AM EDT [facility] Section of Pulmonary Medicine COPD Clinic Follow Up Date of Encounter: 08/15/2021 PCP: Brian Fall, [address] [place] [address] Reason for Visit: Follow up COPD Background: ?? GOLD 2 COPD ?? Smoker, has quit for short periods at a time in the past ?? Paraseptal emphysema and a large intraparenchymal 5cm LLL cyst ?? Chronic elevation of right hemidiaphragm - since at least 2012 Interval History: I saw Mahin in the pulmonary clinic today. Overall he is done okay with his breathing in the last year with no recent requirement for prednisone and antibiotics. He has no dyspnea with day-to-day activities around the house but does get short of breath climbing a flight of stairs, doing yard work or c arrying bags of groceries. His inhaled medications seem to help and he produces a small amount of white sputum most days. He continues to smoke. We assessed his need for oxygen today and discussed lungcancer screening. CAT Responses 08/14/2021 Cough 3 Phleg/Mucus in chest 3 Tightness in chest 2 Breathlessness 4 Limited doing activities 3 Confident leaving home 2 Sleep 3 Lots of energy 4 CAT Scores 24 (High) Review of Systems: Weight up 10 pounds from last visit Past Medical History: Past Medical History: Diagnosis [...] SDH (subdural hematoma) 05/07/2019 Past Surgical History: Past Surgical History: Procedure Laterality Date ??? PRO AMPUTATION FOOT, TRANSMETATARSAL Left 03/10/2020 AMPUTATION, TRANSMETATARSAL (WRVU 12.71) performed by Geovanna Lewis MD at [facility] MAIN OR ??? PRO TOTAL KNEE ARTHROPLASTY Left 12/13/2015 @TOTAL KNEE ARTHROPLASTY performed by Gordon Mallory MD at [facility] MAIN OR ??? PRO UPPER GI ENDOSCOPY, DIAGNOSTIC Bilateral 08/17/2015 EGD, UPPER GI ENDOSCOPY performed by Trev Hong MD at [facility] ENDOSCOPY ??? REVISION TOTAL HIP ARTHROPLASTY bilateral for hip AVN ??? SPINE SURGERY Medications: Current Outpatient Medications Medication Sig Dispense Refill ??? albuteroL 90 mcg/actuation HFA Aerosol Inhaler Inhale 2 puffs into the lungs every 4 hours as needed for Wheezing. Use with spacer 1 each 11 ??? metoprolol succinate XL (Toprol-XL) 50 mg Tablet Sustained Release 24 hr Take 50 mg by mouth daily. Take with 100 mg tablet for 150 mg dose ??? pantoprazole EC (Protonix) 40 mg Tablet, Delayed Release (E.C.) Take 40 mg by mouth 2 times daily. ??? predniSONE (Deltasone) 20 mg Tablet take 3 tablets by mouth every morning for 7 days ??? lisinopriL (Prinivil;Zestril) 40 mg Tablet Take 1 tablet by mouth daily. 90 tablet 3 ??? acetaminophen (Tylenol) 325 mg Tablet Take 650 mg every 4 hours by oral route as needed. ??? furosemide (Lasix) 40 mg Tablet Take 80 mg by mouth daily. ??? buspirone HCl (BUSPIRONE ORAL) Take 15 mg by mouth 2 times daily. ??? methadone HCl (METHADONE ORAL) Take 82 mg by mouth daily. ??? SPIRIVA RESPIMAT 2.5 mcg/actuation Mist Take 1 puff by mouth as needed. ??? PROAIR HFA 90 mcg/actuation HFA Aerosol Inhaler Inhale 2 puffs into the lungs every 6 hours as needed. ??? meTOPROLOL succinate (TOPROL-XL) 100 mg Tablet Sustained Release 24 hr Take 100 mg by mouth daily. Take with 50 mg metoprolol for 150 mg dose 0 ??? DULERA 100-5 mcg/actuation HFA Aerosol Inhaler inhale 2 puffs by mouth prn 0 ??? multivitamin (THERAGRAN) tablet Take 1 tablet by mouth daily. ??? Chantix Starting Month Box 0.5 mg (11)- 1 mg (42) Tablets, Dose Pack Take 1 tablet by mouth daily. ??? donepeziL (Aricept) 10 mg Tablet Take 10 mg by mouth daily. ??? ondansetron ODT (Zofran-ODT) 8 mg Tablet, Rapid Dissolve dissolve 1 tablet ON TONGUE twice a dayif needed ??? triamcinolone (KENALOG) 0.1 % Cream Apply twice daily to bilateral lower legs, times two weeks then off two week, repeat as needed. (Patient not taking: Reported on 08/14/2021) 30 g 0 ??? nicotine (NICODERM CQ) 21 mg/24 hr Patch 24 hr Change 1 patch on the skin daily. (Patient not taking: No sig reported) 28 patch 0 ??? QUEtiapine (SEROquel) 25 mg Tablet take 1 tablet by mouth twice a day if needed No current facility-administered medications for this visit. Allergies: Morphine Social History: Social History Socioeconomic History ??? [...] Social History Narrative [place]. 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 Pt has been exposed to [...] on file Housing Stability: Not on file Family History: Family History Problem Relation Age of Onset ??? Cancer Father ??? Osteoarthritis Mother ??? Cancer Paternal Uncle ??? Cancer Paternal Grandmother Immunizations: Immunization History Administered Date(s) Administered ??? Hep A/Hep B 07/11/2009, 08/11/2009, 02/14/2010 ??? Influenza PF, Split 03/07/2011 ??? Influenza Vaccine, Whole 05/21/2007, 03/04/2008 ??? Pneumococcal Polyvalent 23 02/11/2012 ??? Tdap Vaccine 02/11/2012 Examination: BP 147/79 Pulse 63 Temp 36.3 ??C (97.4 ??F) (Temporal) Resp 16 Ht 175.3 cm (5' 9) Wt 95.5kg (210 lb 9.6 oz) SpO2 95% BMI 31.10 kg/m?? General: Comfortable at rest HEENT: No cervical lymphadenopathy, no oral thrush Mallampati 3 Resp: Hyperinflated, chest expansion equal Resonant to percussion with vesicular breath sounds throughout No crackles or wheeze CV: S1 + S2 + O Skin: No rash Extremities: No clubbing, no cyanosis, no edema, calves soft and non tender Neurologic: No obvious cranial nerve palsy or limb weakness, normal gait Psych: Normal mood and affect Labs: Lab Results Component Value Date WBC 10.2 (H) 03/14/2020 HGB 12.9 (L) 03/14/2020 HCT 39.0 (L) 03/14/2020 PLATELET 398 (H) 03/14/2020 A1AT gentoype: PA A1AT level: 126 Imaging: Available CXR images were viewed personally and reports were reviewed. I agree with the radiology reads. CXR 2019 IMPRESSION 1. Chronic appearing airways thickening and interstitial prominence, although superimposed acute pathology cannot be excluded. 2. Unexpected finding: RIGHT infrahilar 1 cm lung nodule. Recommend nonemergent CT for follow-up. I ordered a CT scan of the chest at our last visit but that did not get done - unclear why CXR May 2021 FINDINGS: Unchanged elevation of the right hemidiaphragm with right infrahilar crowding. Diffuse mild enlargement of the central pulmonary vasculature is unchanged. Abnormal interstitial pattern throughout both lungs with a slight apical predominance is unchanged. No nodule or airspace opacity. No pneumothorax or pleural effusion. Heart size and mediastinal configuration are within normal limits, allowing for apical lordotic positioning. Both humeral heads are high riding, abutting the acromions, which suggests rotator cuff tears. IMPRESSION: No interval change; interstitial pattern may reflect chronic interstitial lung disease or fibrosis. Pulmonary Function Tests: PFT Results Flowsheet Row Office Visit from 05/15/2017 in Pulmonology at [facility] PFT Results FEV1 (L) 2.4 liters FEV1 (%) 76 FVC (L) 3.61 liters FVC (%) 85 FEF 25-75 (L) 1.15 FEF 25-75 (%) 45 FEV1/FVC (absolute) 0.66 FEV1/FVC (%) 89 % FEV1/FVC (%) 66.5 % Additional PFT Data (if needed) Uncorrected DLCO (ml/min/mm Hg) 16.86 DLCO (%) 63 % Ambulatory oximetry August 10, 2021 showed patient needs 2 L/min of supplemental oxygen to keep sats in the 90s during a 250 feet walk. Assessment: 1. COPD: GOLD stage 2 category D. This is moderate disease. 2. Smoker, has quit for short periods at a time in the past 3. Paraseptal emphysema and a large intraparenchymal 5cm LLL cyst 4. Chronic elevation of right hemidiaphragm - since at least 2012 5. 1cm infrahilar RIGHT pulmonary nodule on chest x-ray 2018 - unchanged May 2021 and felt to represent vasculature rather than a nodule Mahin is doing okay from a symptom perspective but Anoro to COPD will continue to progress unless he is able to quit smoking. Offered some assistance but he thinks his ongoing use of cigarettes is a mental thing and he will deal with this as best he can. We renewed his prescription for supplemental oxygen today and discussed lung cancer screening I determined that the patient meets the eligibility criteria for lung cancer screening. We reviewed the or [employer] decision aid and discussed the benefits of earlier detection and harms of false positive results, over diagnosis, and radiation risk. We discussed the impact of co-morbidities on the benefit of screening and the patient's ability and willingness to undergo invasive diagnostic proceduresand treatment that might follow a positive screening result. I also counseled the patient on the importance of adherence to annual lung cancer screening and the importance of not smoking. Medication ordered or changed during this encounter, will not show discontinued medications Medications ??? albuteroL 90 mcg/actuation HFA Aerosol Inhaler Sig: Inhale 2 puffs into the lungs every 4 hours as needed for Wheezing. Use with spacer Dispense: 1 each Refill: 11 OK to sub brand if insurance mandates. Preference is most cost-effective covered MDI first. Orders Placed This Encounter Procedures ??? CT Chest Screening Lung Cancer Standing Status: Future Standing Expiration Date: 02/21/2022 Order Specific Question: Where will study be performed? Answer: [facility] Radiology [120] Order Specific Question: Clinical information / hansen questions for radiologist: Answer: Asymptomatic but at high risk for lung cancer Order Specific Question: Smoking status: Answer: Current. Order Specific Question: Pack Years: Answer: 42 Order Specific Question: Shared decision required for first billed scan - see link above for decision aid. Use the [employer] for documentation. Answer: Shared Decision Making Documented. Order Specific Question: Does the patient show any signs or symptoms of lung cancer? Answer: No Order Specific Question: Is this the first (baseline) CT or an annual exam? Answer: Baseline [1] Order Specific Question: Is this a low dose CT or a routine CT? Answer: Low Dose CT [1] ??? Home Oxygen Home fill portable oxygen system Please machine overhauler back up oxygen tank. Order Specific Question: Vendor Name/Contact information: Answer: [employer] Order Specific Question: Rate (LPM) Answer: 2 Order Specific Question: Route Answer: Nasal Order Specific Question: Hours per day of useage Answer: 24 Order Specific Question: # months service is needed (99= lifetime) Answer: 99 Order Specific Question: Portable needed: Answer: Yes Order Specific Question: SPO2 performed on Room Air? Answer: Yes Order Specific Question: Resting Date (Room Air) Answer: 08/14/2021 Order Specific Question: Resting SPO2% (Room Air) Answer: 92 Order Specific Question: Exercise Date (Room Air) Answer: 08/14/2021 Order Specific Question: Exercise SPO2% (Room Air) Answer: 87 Order Specific Question: SPO2 performed with Supplemental Oxygen? Answer: Yes Order Specific Question: Resting Date (Supplemental Oxygen) Answer: 08/14/2021 Order Specific Question: Resting SPO2% (Supplemental Oxygen) Answer: 95 Order Specific Question: Resting Rate - LPM (Supplemental Oxygen) Answer: 2 Order Specific Question: Exercise Date (Supplemental Oxygen) Answer: 08/14/2021 Order Specific Question: Exercise SPO2% (Supplemental Oxygen) Answer: 91 Order Specific Question: Exercise Rate - LPM (Supplemental Oxygen) Answer: 2 Order Specific Question: Nocturnal testing performed? Answer: No Order Specific Question: Oxygen Conserving Device (OCD) needed? Answer: No Plan: 1. Medications Daily: 1. Spiriva respimat 2 puffs once daily 2. Dulera twice daily via spacer As needed 1. Albuterol 2 puffs 2. Nebulized DuoNeb 2. Exacerbation prevention Avoid sick contacts, wash hands, wear mask as needed 3. Sick plan Prednisone 40mg for 5 days Azithromycin for 5 days Call our office for medications as needed 4. Sleep evaluation Deferred 5. Advanced directives 6. Smoking cessation Smoking up to a pack daily - I offered cessation assistance 7. Pulmonary rehabilitation Practice pursed lip breathing and do home exercises as Agatha instructed 8. Oxygen 2L/min with exertion and at night 9. Immunizations 10. Lung cancer screening enrolled in program today 11. LVRS / Transplant 12. Palliative care 13. A1AT Testing Genotype PA - does not qualify for replacement therapy 14. Other Follow up: ?? In one year in clinic Stiven Cervantes MD Agatha Campos RT - 08/14/2021 8:30 AM EDT Home Oxygen Evaluation for Mahin Ramos Resting SpO2 on room air: 92 % HR: 61 bpm Walked 50 feet on room air, SpO2: 87 % HR: 91 bpm Placed on O2 at 2 lpm: Resting SpO2 on 2 lpm O2: 95 % HR: 82 bpm Walked 200 feet on 2 lpm O2, SpO2: 91 % HR: 92 bpm Current O2 DME: [facility] system: low flow concentrator Portable system: refillable tanks documented in this encounter Plan of Treatment Upcoming Encounters Date Type Specialty Care Team Description 12/11/2021 Appointment Radiology 12/11/2021 Office Visit Orthopaedics Marion Tavera APRN [facility] ORTHOPAEDIC SURG [place], [place] [address] (Wo rk) 01/15/2022 Appointment Radiology Stiven Cervantes MD [facility] Pulmonary Medici [place], [place] [address] (Wo rk) Scheduled Orders Name Type Priority Associated Diagnoses Order S chedule CT Chest Screening Imaging Routine Smoker Expected: 08/22/2021 Lung Cancer Nicotine dependence, (Approx imate), cigarettes, uncomplicated Ex eleuterio: 02/21/2022 Scheduled Procedures Name Priority Associated Diagnoses Date/Time [...] Esquivel, Understanding Action Plan 9:07 AM EDT) [facility] Note: Formatting of this note might be d ifferent from the original. Patient Goal: To experience less side ef fects than his past regimen of Peg and Ribavirin Timeframe to meet goal: 3 months of ther apy documented as of this encounter Visit Diagnoses Diagnosis Stage 2 moderate COPD by GOLD classifica tion Smoker Tobacco use disorder Nicotine dependence, cigarettes, uncompl icated documented in this encounter Care Teams Cigar Inspector Relationship Specialty Start Date End Date Brian Fall APRN PCP - General Internal Medicine 04/07/[address] [place] [phone] documented as of this encounter
--- OUTSIDE RECORDS SUMMARY | 2021-11-30 08:18 | XMS_ITS | Encounter Summary ---
:1955 Author Organization [facility] [place] [address] Care Team Providers Name Role Phone Brian Fall APRN Primary Care Provider Reason for Visit Reason Onset Date Comments Oxygen Dependence 08/15/2021 Encounter Details Date Type Department Care Team Description 08/15/2021 Telephone Pulmonology at [facility] Walter Mendoza [facility] [place] [phone] RN [phone] Social History Tobacco Use Types Packs/Day Years Used Date Current Every Day Smoker Cigars, Cigarettes 1 42 Smokeless Tobacco: Never Used Comments: a pack or less a day Alcohol Use Standard Drinks/Week Comments Yes 22 (1 standard drink = 0.6 oz pure alcoh ol) Sex Assigned at Date Recorded Not on file documented as of this encounter Miscellaneous Notes Telephone Encounter - Karen Mendoza RN - 08/15/2021 11:32 AM EDT Faxed completed home oxygen orders, signed by Dr. Cervantes, to [employer]. Attached to this was the following items: Patient Demographics, Office Visit Notes dated 08/14/2021 This covered the following items: Home fill portable oxygen system, exchange administrator back up oxygen tank Fax submission confirmation time stamped for 08/15/2021 @ 5205. 7 pages with cover sheet. documented in this encounter Plan of Treatment Upcoming Encounters Date Type Specialty Care Team Description 12/11/2021 Appointment Radiology 12/11/2021 Office Visit Orthopaedics Marion Tavera APRN [facility] [address] ORTHOPAEDIC SURG [place], [place] [address] (Wo rk) 01/15/2022 Appointment Radiology Stiven Cervantes MD [facility] er Pulmonary Medici [place], [place] [address] (Wo rk) Scheduled Procedures Name [...] Esquivel, Understanding Action Plan 9:07 AM EDT) [facility] Note: Formatting of this note might be d ifferent from the original. Patient Goal: To experience less side ef fects than his past regimen of Peg and Ribavirin Timeframe to meet goal: 3 months of ther apy documented as of this encounter Visit Diagnoses Not on filedocumented in this encounter Care Teams Plunger Scoop Operator Relationship Specialty Start Date End Date Brian Fall APRN PCP - General Internal Medicine 04/07/[address] [place] [phone] documented as of this encounter
--- OUTSIDE RECORDS SUMMARY | 2021-11-30 08:18 | XMS_ITS | Encounter Summary ---
:1955 Author Organization [facility] [place] [address] Care Team Providers Name Role Phone Brian Fall APRN Primary Care Provider Encounter Details Date Type Department Care Team Description 11/18/2021 Interpretation Only [facility] [address], [place], [place] [address] [phone] [place] [address] [phone] (Wo rk) Social History Tobacco Use Types [...] 12/11/2021 Office Visit Orthopaedics Marion Tavera APRN [facility] ORTHOPAEDIC SURG [place], [place] [address] (Wo rk) 01/15/2022 Appointment Radiology Stiven Cervantes MD [facility] Pulmonary Medici nelly [place], [place] [address] (Wo rk) Scheduled Procedures Name [...] Esquivel, Understanding Action Plan 9:07 AM EDT) [facility] Note: Formatting of this note might be d ifferent from the original. Patient Goal: To experience less side ef fects than his past regimen of Peg and Ribavirin Timeframe to meet goal: 3 months of ther apy documented as of this encounter Procedures Procedure Name Priority Date/Time Associated Diagnosis Comme nts XR FOOT MIN 3 VIEWS STAT 11/18/2021 1:09 PM Re sults for this RIGHT EDT procedure are i n the results section. documented in this encounter Results XR Foot Min 3 views Right (Generic) (11/18/2021 1:09 PM EDT) athologist Signature PT CLASS E RAD ADMITDTTM RAD PT RAD MD INFO [id number]^F RAD INDLEY^NICKIE PETERSEN EXAM DESC [id number]^XR RAD RIGHT FOOT ROUTINE^RIS Anatomical Region Laterality Modality Foot Right Radiographic Imaging Specimen (Source) Anatomical Location Collection Method / Collectio n Time Received Time / Laterality Volume Impressions 11/18/2021 1:16 PM EDT Interval resection of the neck and head of the fourth metatarsal. Healed deformity at the neck of the fifth metat arsal. Interval development of soft tissue air in the proximal great toe con cerning for infection with a gas producing organism. No osseous destructi ve changes seen. Thank you for letting us participate in the care of this patient. ??If you are a health care provider and have any questi ons regarding this report, please contact the number below. ??For patients who have questions please contact the health acute care physician that requested your imaging first. ? Electronically signed by: Kushal geiger MD, [facility] ([phone]), at 11/18/2021 1:16 PM Narrative 11/18/2021 1:16 PM EDT EXAMINATION: XR RIGHT FOOT ROUTINE CLINICAL HISTORY: cellulitis R great toe /dorsum of foot; ? osteomyelitis, soft tissue gas TECHNIQUE: 3 views the right foot COMPARISON: May 10, 2021 FINDINGS: See impression. Procedure Note Kushal Pascual MD - 11/18/2021For matting of this note might be different from the original. EXAMINATION: XR RIGHT FOOT ROUTINE CLINICAL HISTORY: cellulitis R great toe /dorsum of foot; ? osteomyelitis, soft tissue gas TECHNIQUE: 3 views the right foot COMPARISON: May 10, 2021 FINDINGS: See impression. IMPRESSION Interval resection of the neck and head of the fourth metatarsal. Healed deformity at the neck of the fifth metat arsal. Interval development of soft tissue air in the proximal great toe con cerning for infection with a gas producing organism. No osseous destructi ve changes seen. Thank you for letting us participate in the care of this patient. If you are a health care provider and have any questi ons regarding this report, please contact the number below. For patients w ho have questions please contact the health acute care physician that requested your imaging first. Electronically signed by: Kushal geiger MD, [facility] ([phone]), at 11/18/2021 1:16 PM Spencer Winn MD IMG DX ORDERABLES documented in this encounter Visit Diagnoses Not on filedocumented in this encounter Care Teams Archeology Faculty Member Relationship Specialty Start Date End Date Brian Fall APRN PCP - General Internal Medicine 04/07/[address] [place] [phone] documented as of this encounter
--- OUTSIDE RECORDS SUMMARY | 2021-11-30 08:18 | XMS_ITS | Encounter Summary ---
:1955 Author Organization [facility] [place] [address] Care Team Providers Name Role Phone Brian Fall APRN Primary Care Provider Reason for Visit Reason Comments Leg Pain Auth/Cert Specialty Diagnoses / Procedures Referred By Contact Refer red To Contact Diagnoses Necrotizing fasciitis Cellulitis of leg, right Necrotic toes Infected [place]e [place] [address] Referral ID Status Reason Start Date Expiration Date Visits Requ ested Visits Authorized [id number] 1 1 Encounter Details Date Type Department Care Team Description 11/21/2021 Surgery Main Operating Room Mercedes Romero MD Not Performed [facility] SKIN, [facility] DR PELAEZ, MUSCLE, BONE, [facility] ORTHOPAEDIC S URGERY LOWER EXTREMITY ([place] [address] 4.1) [place] [address] [phone] Social History Tobacco Use Types Packs/Day Years [...] Sign Reading Time Taken Comments Blood Pressure 146/72 11/21/2021 3:10 PM EDT Pulse 79 11/21/2021 3:10 PM EDT Temperature 36.7 ??C (98.1 ??F) 11/21/2021 2:32 PM EDT Respiratory Rate 21 11/21/2021 3:10 PM EDT Oxygen Saturation 95% 11/21/2021 3:10 PM EDT Inhaled Oxygen Concentration - - [...] Soledad Ramos Patient Age: 66 y.o. Language: Brazilian Race: White Ethnicity: Not nor Admit date: 11/18/2021 Discharge date and time: 11/29/2021 Attending Physician: Jennifer Martinez MD Discharge Provider: NIEVES Hutton Follow-up Recommendations for Providers: - Continue methadone for chronic pain dose adjustments per [facility]. His last dose of methadone was 45 mg on 11/29/2021. Last QTC done on the same day was 494. Plan discussed with Dr. Garrison at [facility] to increase by 10 mg daily while monitoring daily EKG. - Patient is on IV ertapenem 1 g daily and IV daptomycin 700 mg daily through 01/06 for osteomyelitis. His IV infusions are set up with [facility] Mendoza in [facility], with his next appointment on 11/30 at 1 PM. - He will need PCP, ID, orthopedic follow-up Inpatient Provider Contact Information: For questions regarding this document or issues relating to this hospitalization on the Medical Service, please contact your inpatient physician through the [facility] Administrative Assistant . Issues after hours and on weekends [...] ??? Patient has active durable power of workers compensation defense attorney (DPOA) designee for healthcare ??? Methadone [...] BONE, LOWER EXTREMITY (WRVU 4.1) AMPUTATION, TRAN[facility]ATARSAL [facility]) 11/25/2021 Other Major Procedures: N/A History of Presentation: As per admission H&P on 11/18: Soledad Ramos is a 66 y.o. 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 History obtained from patient and chart review . ?? Soledad relates that he initially presented to [facility] this AM after rapid progression of [...] He was administered clindamycin and Vancomycin and [facility] the transfer center and recommended transfer to [facility] for further work-up and evaluation for [...] asked hospital medicine to admit patient given ok s medical complexity and multiple co-morbidities. Hospital [...] to follow-up with daily infusion clinic - [facility] in [facility] tomorrow at 1 PM. The infectious disease providers well call you to set up a follow-up appointment towards the end of your IV antibiotic course. You also have an orthopedic follow-up at 2:30 PM on 12/11. You may continue with dywh-trz-ubxuneb Tylenol as needed for pain, not to exceed 4000 mg daily. We also resumed your methadone dose, you are now on 45 mg daily. You will need to see your [facility] provider for your next methadone dose, it [...] mg, he will need to follow-up at [facility] tomorrow to have your new dose set by them. Stop these medications: - Zofran Follow-up: Future Appointments Date Time Provider Department [facility] Rad [facility] Your Inpatient Doctor: LORRIE LUNDBERG HANNAH L BHISE, VIRAJ R MUELLER, CATHERINE L Your Primary Care Provider: @PCPID@ For questions regarding this document or issues relating to this hospitalization on the Medical Service, please contact your inpatient physician through the [facility] Administrative Assistant . Issues after hours and on weekends [...] dressing on until follow-up. Call your doctor ([phone]) if you develop: 1. Fever greater than [...] your intake of calcium should be at [id number] a day and your vitamin D intake should be at least 800 IU per day. FOLLOW-UP APPOINTMENTS: 1. You will have follow-up appointments at [facility] as indicated in Future Appointment and Orders. 2. Please call Orthopedics at if you have any questions or concerns, as your follow-up is important to us. Future Appointments Date Time Provider Department Center 12/11/2021 1:00 PM [facility] DX ROOM 2 Xray [facility] Rad 12/11/2021 2:30 PM Marion Tavera APRN [facility] ORTH 3C [facility] 01/15/2022 12:00 PM [facility] CT 3 [facility] RAD CT [facility] Rad SAME DAY PROGRAM POST-OPERATIVE INSTRUCTIONS What [...] 24 hours, please call the Anesthesiology Department: [phone] Shortness of breath: If you have severe shortness of breath that seems to go on and on, please go tothe nearest ER (emergency room). If a nerve block lasts longer than 48 hours, take action. If the nerve block does not wear off within 48 hours, please call the Anesthesiology Department: [phone] Protect the part of your body that [...] the Anesthesiology Department with concerns or questions: [phone] After hours: Call the hospital hydraulic barker operator and ask for the anesthesiologist (deb talbot) cooperative education coordinator: [phone] Updated: 03/19/21 If you have questions or concerns: Friday through Friday, 8 AM - 5 PM, please call Sammy Baker MD's office at . If it is after 5 PM or on the weekend, please call and ask to speak with the Orthopedic resident on-call. Substance Use Treatment, Harm-Reduction, and Relapse Prevention Resources Residential Treatment: [address] [address] Intensive Outpatient Program: [facility] Human [address] [address] Individual Counseling: [address] [address] [facility] [address] [place] [address] x6 Anne-Marie Tang, [address] [address] Offers EMDR Therapy You may also search www.psychologytoday.GPMESS or Xockets for therapists in your area. EMDR Therapy [...] completed in fewer sessions than other psychotherapies. www.emdria.org/jpmnq-eiaa-kftjzzc/ Medication Assisted Therapy: [address] [place] [address] [place] [address] Peer Support Groups Alcoholics Anonymous (AA) [place]: , www.nhaa.net Narcotics Anonymous (NA) [place]: , www.gmana.org Community Peer Support Center [address] [address] Online AA and NA Meetings AA, NA, Refuge Recovery, SMART Recovery www.Longevity Biotech AA Video Meetings www.aa-intergroup.org/directory_audio-video.php AA Text Chat Meetings www.aa.intergroup.org/directory.php NA Video Meetings www.virtual-na.org/meetings NA Text Chat Meetings Www.neveraloneclub.org SMART Recovery Meetings via Zoom 5:00-6:00pm, free and open to all To join Zoom meetin. Visit www.Semitech Semiconductor 2. Click on calendar on top of toolbar 3. Find the correct meeting date and time 4. Click the zoom link and enter password provided Additional Substance Use Treatment Resources Www.vtaddictionservices.org www.healthvermont.gov/alcohol-drugs www.[place] [address].org/ (Search for Substance Use) www.psychologyZongday.com/ Www.rethinkingdrinking.niaaa.nih.gov/ www.samhsa.gov/fdgedtrpdp-mkpmqwxr-wvufqjggw/sdghgqmimrqa-vuuvzae-rncd/treatment -practitioner-dry roaster Mental Health Crisis [employer] Mental [facility] Crisis Line: Dial 98 www.[facility].gov/find-help/987 Harm-Reduction Resources Mobile operations. For more information about receiving supplies: including syringe exchange, fentanyl test strips, and naloxone, or to schedule an appointment: [place] clients call and leave a message for Yoana (ext. 105) or Zbigniew Quigley (ext. 104). [place] clients call to speak with Zbigniew Waddell [...] is being approved. Online Stress Reduction Resources www.LearnBop/videos-features/videos/caokzlmlh-hjgexokge-8-7-8-breath/ www.Yozio.org/2013/awscyhbwf-ivhbfqbzh-gdkuxfa-moment/ www.headsRacerTimes/ www.mindful.org/ www.freeLeostreamness.org/ Employment Agency Working [address] [address] rom@Ducks[employer] Providing an opportunity for successful employment and recovery by empowering individuals to manage challenges because of substance use addiction and past convictions. YOU ARE SCHEDULED FOR A FOLLOW UP APPOINTMENT WITH YOUR PRIMARY CARE PROVIDER ON 12/10/2021 AT 9:30AM Future Appointments and Orders Future Appointments and Orders Future Appointments Provider Department Dept Phone 12/11/2021 1:00 PM [facility] DX ROOM 2 XRay at [facility] Arrive at: [facility] [employer] [facility] [phone] Please go to [facility] [employer] [facility] ([place] Location). 12/11/2021 2:30 PM Marion Tavera APRN Orthopaedics at [facility] Arrive at: [employer] [phone] 01/15/2022 12:00 PM [facility] CT [address] CT Scan at [facility] Arrive at: 3Z RADIOLOGY [phone] Future Orders Complete By Expires XR Foot Min 3 views Right (Generic) [82608 Custom] 12/11/2021 05/30/2022 Process Instructions: Scheduling Instructions: Comments: Questions: Where will study be performed?: [facility] Radiology Portable exam?: Reason for exam and clinical history: s/p 1st toe amp Clinical information / hansen questions for radiologist: Stat read required?: Date of injury if applicable: Requested Time: OPAT: Order / Recommendation for Post Discharge IV Antibiotic Management [HUC867 CPT(R)] As directed Process Instructions: If no progress note charted, please enter Clinical details in comments. Scheduling Instructions: Comments: Please Fax all results to: OPAT Program Infectious Disease Section [facility], [place] [address] FAX: After hours, please contact the Infectious Disease Physician cooperative education coordinator at . If this order was signed greater than 72 hours prior to [facility] discharge, please call to confirm the accuracy [...] Saline then 3 ml heparin (10 units/ml) FDC for medication administration/registered occupational therapist and catheter care/maintenance authorized. PICC Dressing Change weekly and PRN Please use CHG or Bio Patch RNs: Please care for PICC line including dressing changes weekly and prn. Please draw labs every Friday and PRN and [facility] at [phone]. Please draw labs off PICC line. See OPAT order for lab draw details. RN visits for IV ABX teaching as needed and ongoing assessment. Catheter Occlusion Management Instill reconstituted Cathflo 2mg per instillation (based on the volume of the catheter lumen). May repeat x1 per occlusion incident. Questions: ID Diagnosis: Cellulitis/Polymicrobial diabetic foot infection, Osteomyelitis of right great toe; s/p [facility]amputation through [facility] 11/25/21 Microorganisms being treated: Coagulase negative staph, [...] Scheduling Instructions: Comments: Soledad Ramos [address] [facility] [phone] (home) No relevant phone numbers on file. [...] WHEELED WALKER (E0143) Referral for Outpatient Antibiotics [WTH6135 CPT(R)] As directed Process Instructions: Scheduling Instructions: [...] Home Health. [address] [facility] [address] (home) Date of : 1955 DOCUMENTATION FOR VNA SERVICES (INCLUDING THOSE PATIENTS WITH MEDICARE COVERAGE REQUIRING HOME VNA SERVICES AND/OR HOSPICE SERVICES) PATIENT'S LOCATION: Soledad Ramos [address] [facility] [address] (home) Cell: No relevant phone numbers on file. Machine Taper's Name: Self / In discussion with the attending physician, it is certified that this patient is under their care and that they, or a Nurse Practitioner,Clinical Nurse specialist or Physician Welding Machine Feeder who is working directly with them, had [...] AGENCY: [facility] and [address] [address] PHONE: [phone] FAX: [phone] Start of care: Day of discharge FOR [...] be obtained from this patient'sPCP: Brian Fall, POLICY WRITER [address] [facility] [address] All VNA agencies which cover the area of patient's residence have been reviewed, either verbally or in writing, and patient/family have chosen the home health care agency noted Questions: Disciplines Requested: Nursing Physical Therapy Occupational Therapy Discharge References/Attachments None documented in this encounter Discharge Instructions Discharge InstructionsNiki Gonzalez [facility] - 11/18/2021 9:50 PM EDT [...] dressing on until follow-up. Call your doctor ([phone]) if you develop: Fever greater than 100.5 [...] your intake of calcium should be at [id number] a day and your vitamin D intake should be at least 800 IU per day. FOLLOW-UP APPOINTMENTS: 1. You will have follow-up appointments at [facility] as indicated in Future Appointment and Orders. 2. Please call Orthopedics at if you have any questions or concerns, as your follow-up is important to us. Future Appointments Date Time Provider Department Center 12/11/2021 1:00 PM [facility] DX ROOM 2 Xray [facility] Rad 12/11/2021 2:30 PM Marion Tavera APRN [facility] ORTH 3C [facility] 01/15/2022 12:00 PM [facility] CT 3 [facility] RAD CT [facility] Rad SAME DAY PROGRAM POST-OPERATIVE INSTRUCTIONS What [...] 24 hours, please call the Anesthesiology Department: [phone] Shortness of breath: If you have severe shortness of breath that seems to go on and on, please go tothe nearest ER (emergency room). If a nerve block lasts longer than 48 hours, take action. If the nerve block does not wear off within 48 hours, please call the Anesthesiology Department: [phone] Protect the part of your body that [...] the Anesthesiology Department with concerns or questions: [phone] After hours: Call the hospital hydraulic barker operator and ask for the anesthesiologist (deb talbot) cooperative education coordinator: [phone] Updated: 03/19/21 If you have questions or concerns: Friday through Friday, 8 AM - 5 PM, please call Sammy Baker MD's office at . If it is after 5 PM or on the weekend, please call and ask to speak with the Orthopedic resident on-call. Substance Use Treatment, Harm-Reduction, and Relapse Prevention Resources Residential Treatment: [address] [address] [address] Intensive Outpatient Program: [address] [address] Individual Counseling: [address] [address] [facility] [address] [place] [address] x6 Anne-Marie Tang[address] [address] Offers EMDR Therapy You may also search www.psychologyZongday.GPMESS or Xockets for therapists in your area. EMDR Therapy [...] completed in fewer sessions than other psychotherapies. www.emdria.org/mxusa-vjnv-hdmwzpt/ Medication Assisted Therapy: [address] [place] [address] [place] [address] Peer Support Groups Alcoholics Anonymous (AA) [place]: , www.nhaa.net Narcotics Anonymous (NA) [place]: , www.TV Interactive Systemsana.org Community Peer Support Center [address] [address] Online AA and NA Meetings AA, NA, Refuge Recovery, SMART Recovery www.Longevity Biotech AA Video Meetings www.aaCornerstone Therapeuticsintergroup.org/directory_audio-video.php AA Text Chat Meetings www.aapopADintergroup.org/directory.php NA Video Meetings www.Rhenovia Pharmana.org/meetings NA Text Chat Meetings Www.Codelearnaloneclub.org SMART Recovery Meetings via Zoom 5:00-6:00pm, free and open to all To join Zoom meeting: Visit wwwStellinc Technology AB Click on calendar on top of toolbar Find the correct meeting date and time Click the zoom link and enter password provided Additional Substance Use Treatment Resources Www.CRI Technologiesddictionservices.org www.health[place].gov/alcohol-drugs www.nxayjkf266.org/ (Search for Substance Use) www.Opta Sportsdata.GPMESS/ Www.rethinkingdrinking.niaaa.nih.gov/ www.samhsa.gov/xjxnqxugdl-twajbxtp-ryeyazhen/kdigpfpmqmfy-jwvogdb-ickp/treatment -practitioner-dry roaster Mental Health Crisis [employer] Mental [facility] Crisis Line: Dial 988 www.[facility].gov/find-help/988 Harm-Reduction Resources Mobile [employer]. For more information about receiving supplies: including syringe exchange, fentanyl test strips, and naloxone, or to schedule an appointment: [place] clients call and leave a message for Yoana (ext. 105) or Zbigniew Quigley (ext. 104). [place] clients call to speak with Zbigniew Waddell [...] is being approved. Online Stress Reduction Resources www.LearnBop/videos-features/videos/gjizolpif-bfgqvdray-3-7-8-breath/ www.themindfulword.org/2013/rglqegxuy-eyctqfufl-jjwyyiw-moment/ www.headspace.com/ www.mindful.org/ www.freemindfulness.org/ Employment Agency Working [place] [address] [place] [address] [address] [place] [address] rom@[employer] Providing an opportunity for successful employment and [...] to follow-up with daily infusion clinic - [facility] in [facility] tomorrow at 1 PM. The infectious disease providers well call you to set up a follow-up appointment towards the end of your IV antibiotic course. You also have an orthopedic follow-up at 2:30 PM on 12/11. You may continue with qpux-wsi-ozqsdaw Tylenol as needed for pain, not to [...] mg, he will need to follow-up at [facility] tomorrow to have your new dose set by them. Stop these medications: - Zofran Follow-up: Future Appointments Date Time Provider Department [facility] Your Inpatient Doctor: LORRIE LUNDBERG HANNAH L BHISE, JENNIFER FALCON Your Primary Care Provider: @PCPID@ For questions regarding this document or issues relating to this hospitalization on the Medical Service, please contact your inpatient physician through the [facility] Administrative Assistant . Issues after hours and on weekends [...] mild cognitive impairment presented 11/18/21??for admission to [facility]??(transferred from [facility] ED) at the request of the orthopedic surgery service for necrotizing soft tissue infection of the right foot/great toe. A&Ox3-4, forgetful but easily reoriented. Anxious, Ativan given once w/ relief. VSS on RA. Telemetry unremarkable, HR 70-80s NSR. Lungs diminished throughout, denies SOB/CUNHA & refusing nebs at this time. RUE PICC c/d/i, placed for skilled nursing abx treatment. All meds given per MAR. [...] ??? Patient has active durable power of workers compensation defense attorney (DPOA) designee for healthcare ??? Methadone [...] spent >30 minutes (Day of Discharge Code 59307) involved in the final examination of the [...] cognitive impairment presenting for admission from the [facility] (transferred from [facility] ED) at the [...] [facility] Pt was pleasant and participated [...] plan as stated. Time IN / OUT: 5580-9166 Total Minutes, Physical Therapy: 25 Billing Code: Functional activity x 2 Radha Pierre, PT Pager: [phone] Physical Therapy Inpatient Rehabilitation Department Malinda Díaz [...] Events: - Unable to reach provider at [facility] as they are currently sick and will [...] interpretation Confirmed by fellow MD Devorah, Debra ([id number]) on 11/28/2021 11:56:35 AM Confirmed by MD [...] who have questions please contact the health chiropractic care that requested your imaging first. Electronically signed by: Wicho Michael MD, [facility] ([phone]), at 11/19/2021 2:58 AM XR Foot Min [...] who have questions please contact the health chiropractic care that requested your imaging first. Electronically signed by: Penny Ge MD, [facility] ([phone]), at 11/23/2021 7:11 PM XR PICC Placement [...] who have questions please contact the health chiropractic care that requested your imaging first. Electronically signed by: Penny Ge MD, [facility] ([phone]), at 11/27/2021 4:00 PM Inpatient Medications: Scheduled [...] cognitive impairment presented 11/18/21 for admission to [facility] (transferred from [facility] ED) at the [...] withdrawal-suspected #Prolonged QTc - Call patient's clinic ([facility], ) in AM to confirm 90 [...] Tubes/ Drains Wound Vac DVT prophylaxis Lovenox PT/OT/REGIONAL WILDLIFE AGENT ordered Wound care Per surgical team at this time Anticipated Disposition home with home health, home with supervision (pending progress made while hospitalized) Team Pager (MD Coverage 02/12): [phone] Family Update At bedside 11/28 PCP LISA Levi PA 11/28/2021 Elli Obrien, RN - 11/28/2021 12:17 PM EDT Office of Care Management (OCM /Kassy (ISABEL)Discharge planning ) Service :Med Pager #[phone] e-DH reviewed. Report received from IDDRs Patient plan of care discussed with Team and Nursing to assessment for continuing care and dischargeneeds. [facility] Hospital: 10 DECISION MAKER: Attempt Cardiopulmonary Resuscitation [...] planning. Elli Obrien RN CM Pager # [phone] Grace Montero OT - 11/28/2021 11:31 AM [...] Occupational Therapy: 34 (SCHM x 2) Pager: [phone] Grace Montero OT Occupational Therapy Rehabilitation Department Claudia Long RN - 11/28/2021 6:46 AM EDT Illness Severity [x] Stable [] Watcher [] Unstable Patient Summary Reason for admission: Rapidly progressing R great toe infection requiring amputation. ETOH withdrawal Relevant PMH: ETOH use, peripheral neuropathy, cirrhosis, L 4th+5th toe amps, methadone dependence, COPD, Hep C, HTN, HLD Significant 24 hour events: 11/27PM: Transferred from [facility]. Report taken from Bridgette at 2340. [...] with Ax2 w/ FWW. This RN and CALCULATOR OPERATOR caught him before he fell over. Chemo [...] I assumed care for this patient from [phone]. Patient ambulating to bathroom with 1 assist [...] who have questions please contact the health chiropractic care that requested your imaging first. Electronically signed by: Wicho Michael MD, [facility] ([phone]), at 11/19/2021 2:58 AM XR Foot Min [...] who have questions please contact the health chiropractic care that requested your imaging first. Electronically signed by: Penny Ge MD, [facility] ([phone]), at 11/23/2021 7:11 PM XR PICC Placement [...] who have questions please contact the health chiropractic care that requested your imaging first. Electronically signed by: Penny Ge MD, [facility] ([phone]), at 11/27/2021 4:00 PM Inpatient Medications: Scheduled [...] cognitive impairment presented 11/18/21 for admission to [facility] (transferred from [facility] ED) at the [...] withdrawal-suspected #Prolonged QTc - Call patient's clinic ([facility], ) in AM to confirm 90 [...] Tubes/ Drains Wound Vac DVT prophylaxis Lovenox PT/OT/REGIONAL WILDLIFE AGENT ordered Wound care Per surgical team at this time Anticipated Disposition home with home health, home with supervision (pending progress made while hospitalized) Team Pager ( Coverage 02/12): [phone] Family Update At bedside 11/25 PCP LISA [...] cognitive impairment presenting for admission from the [facility] (transferred from [facility] ED) at the [...] [facility] Pt was pleasant and participated [...] plan as stated. Time IN / OUT: 0171-7439 Total Minutes, Physical Therapy: 29 Billing Code: Functional activity x 2 Radha Pierre, PT Pager: [phone] Physical Therapy Inpatient Rehabilitation Department Judit Spencer [...] 11/27, I spent 30 minutes in a [id number]-[id number]-face encounter arranging the patient to receive home [...] Patient screened for hospital length of stay. Medical Technical Writer connected with patient and over the phone.Per [...] nutrition related questions answered at this time GABRIELLA Israel [phone] Elli Obrien RN - 11/27/2021 1:01 PM EDT The Patient has been provided a list of Home Health Agencies/DME vendors which serve their preferredgeographic area. A letter describing our affiliations was reviewed with them and they were educated about their right to choose where referrals are placed. Provided patient with [facility] Star Quality Rating for Home care Patient requests referral to : [facility] [place] [address] [place], [place] or [facility] Intake office: tel: [phone] [place], [place] Office [place], [place] Office Expected date of discharge: 11/30/2021 Referral routed to the Perinatal Nurse for matching with agency/vendor and to provide any required information. Judit Spencer, DO - 11/27/2021 10:06 AM EDT Images [...] reports that he normally gets Methadone from [facility] and has for years, takes 90mg daily. He denies any fever or chills, no pain to hisright foot. Don reports that diarrhea started last night, has not had associated abdominal pain. He's gone about 3-4 times since last night and thinks that it's because he's not taking his methadone. O: Vitals Flowsheet Row ED to Hosp-Admission (Current) from 11/18/2021 in 1 [facility] Weight 91.9 kg (202 lb [...] 4th ray amputation), who was admitted to [facility] on 11/18 from [facility] with a [...] MD Infectious disease fellow Green team pager [phone] I have seen the patient and reviewed [...] is buy a big bottle of bourbon. industrial trainer notified to ensure that BIT is following. [...] Padilla PA - 11/26/2021 2:14 PM EDT [facility] Medicine Daily Progress Note Admit Date: [...] who have questions please contact the health chiropractic care that requested your imaging first. Electronically signed by: Wicho Michael MD, [facility] ([phone]), at 11/19/2021 2:58 AM XR Foot Min [...] who have questions please contact the health chiropractic care that requested your imaging first. Electronically signed by: Penny Ge MD, [facility] ([phone]), at 11/23/2021 7:11 PM Inpatient Medications: Scheduled [...] cognitive impairment presented 11/18/21 for admission to [facility] (transferred from [facility] ED) at the [...] #Acute alcohol withdrawal-suspected - Call patient's clinic ([facility], ) in AM to confirm 90 [...] Tubes/ Drains Wound Vac DVT prophylaxis Lovenox PT/OT/REGIONAL WILDLIFE AGENT ordered Wound care Per surgical team at this time Anticipated Disposition home with home health, home with supervision (pending progress made while hospitalized) Team Pager ( Coverage 02/12): [phone] Family Update At bedside 11/25 PCP LISA [...] 12.71) performed by Geovanna Lewis MD at [facility] MAIN OR ??? PRO AMPUTATION FOOT, TRANSMETATARSAL Right 11/25/2021 AMPUTATION, TRANSMETATARSAL (WRVU 12.71) performed by Jarad Flores MD at [facility] MAIN OR ??? PRO AMPUTATION METATARSAL+TOE, SINGLE Right 11/23/2021 AMPUTATION, TRANSMETATARSAL TOE, ONE TOE (WRVU 6.64) performed by Jarad Flores MD at [facility] MAIN OR ??? PRO AMPUTATION TOE, MT-P JT Right 11/18/2021 AMPUTATION TOE, METATARSO-PHALANGEAL JOINT (WRVU 5.82) performed by Sammy Baker MD at [facility] [place] ? ? PRO DEBRIDEMENT BONE MUSCLE &/FASCIA 20 SQ CM/< Right 11/25/2021 DEBRIDEMENT SKIN, SUBCU, MUSCLE, BONE, LOWER EXTREMITY (WRVU 4.1) performed by Jarad Flores MD [facility] MAIN OR ??? PRO TOTAL KNEE ARTHROPLASTY Left 12/13/2015 @TOTAL KNEE ARTHROPLASTY performed by Gordon Mallory MD at [facility] MAIN OR ??? PRO UPPER GI ENDOSCOPY, DIAGNOSTIC Bilateral 08/17/2015 EGD, UPPER GI ENDOSCOPY performed by Trev Hong MD at [facility] ENDOSCOPY ??? REVISION TOTAL HIP [...] jude wrap/bandage. Coordination: intact Sensation: intact Skin: jued wrap and bandage over R foot/ankle Activities [...] instrument andmeasurable assessment of functional outcome. Pager: [phone] Grace Montero OTR/L Occupational Therapy Rehabilitation Department [...] ??? Patient has active durable power of workers compensation defense attorney (DPOA) designee for healthcare ??? Methadone [...] sign off at this time, please page [phone] with new questions. ?? Activity: NWB RLE DVT prophylaxis: rec lovenox Closure: Primary Closure - skin incision is completely closed without any wires, korey, drains or other devices Antibiotics: currently flagyl and ceftriaxone per primary Harley Raymond MD 11/26/2021 Future Appointments Date Time Provider Department Center 01/15/2022 12:00 PM [facility] CT [address] [facility] RAD CT [facility] Rad Valerie Adams RN - 11/25/2021 5:32 [...] who have questions please contact the health chiropractic care that requested your imaging first. Electronically signed by: Wicho Michael MD, [facility] ([phone]), at 11/19/2021 2:58 AM XR Foot Min [...] who have questions please contact the health chiropractic care that requested your imaging first. Electronically signed by: Penny Ge MD, [facility] ([phone]), at 11/23/2021 7:11 PM Inpatient Medications: Scheduled [...] cognitive impairment presented 11/18/21 for admission to [facility] (transferred from [facility] ED) at the [...] #Acute alcohol withdrawal-suspected - Call patient's clinic ([facility], ) in AM to confirm 90 [...] Tubes/ Drains Wound Vac DVT prophylaxis Lovenox PT/OT/REGIONAL WILDLIFE AGENT ordered Wound care Per surgical team at this time Anticipated Disposition TBD Team Pager (MD Coverage 02/12): [phone] Family Update At bedside 11/25 PCP LISA [...] ??? Patient has active durable power of workers compensation defense attorney (DPOA) designee for healthcare ??? Methadone [...] Time Provider Department Center 01/15/2022 12:00 PM [facility] CT [address] [facility] RAD CT [facility] Rad Katey Ruffin RN - 11/25/2021 10:02 [...] pain unchanged, coping better however. Paged medicine POLICY WRITER re: restarting home methadone, potential APS consult. [...] ??? Patient has active durable power of workers compensation defense attorney (DPOA) designee for healthcare ??? Methadone [...] Time Provider Department Center 01/15/2022 12:00 PM [facility] CT [address] [facility] RAD CT [facility] Rad Patricia Villafana, POLICY WRITER - 11/24/2021 3:18 PM EDT [facility] Medicine Daily Progress Note Admit Date: 11/18/2021 Hospital Day 6 days Active Hospital Problems Diagnosis ? ? S/p right great toe amp, I&D, vac 11/18/21 (Diego) ??? Alcohol withdrawal syndrome, with delirium Resolved Hospital Problems No resolved problems to display. 24 Hour Events: - Pleasant and cooperative this morning - pain well managed with SQ dilaudid - Will be NPO at NE for planned I+D with ortho on 11/25, [...] the last 720 hours. Recent Labs 11/18/21 20511/23/21 1306 GRAMSTAIN Many Neutrophils seen Many Gram [...] who have questions please contact the health chiropractic care that requested your imaging first. Electronically signed by: Wicho Michael MD, [facility] ([phone]), at 11/19/2021 2:58 AM XR Foot Min [...] who have questions please contact the health chiropractic care that requested your imaging first. Electronically signed by: Penny Ge MD, [facility] ([phone]), at 11/23/2021 7:11 PM Inpatient Medications: Scheduled [...] cognitive impairment presented 11/18/21 for admission to [facility] (transferred from [facility] ED) at the [...] #Acute alcohol withdrawal-suspected - Call patient's clinic ([facility], ) in AM to confirm 90 [...] Tubes/ Drains Wound Vac DVT prophylaxis Lovenox PT/OT/REGIONAL WILDLIFE AGENT ordered Wound care Per surgical team at this time Anticipated Disposition TBD Team Pager (MD Coverage 02/12): [phone] Family Update At bedside 11/22 PCP LISA [...] ??? Patient has active durable power of workers compensation defense attorney (DPOA) designee for healthcare ??? Methadone [...] Time Provider Department Center 01/15/2022 12:00 PM [facility] CT [address] [facility] RAD CT [facility] Rad Jarad Flores MD - 11/23/2021 5:02 [...] ??? Patient has active durable power of workers compensation defense attorney (DPOA) designee for healthcare ??? Methadone [...] Time Provider Department Center 01/15/2022 12:00 PM [facility] CT [address] [facility] RAD CT [facility] Rad Patricia Villafana APRN - 11/23/2021 3:59 [...] who have questions please contact the health chiropractic care that requested your imaging first. Electronically signed by: Wicho Michael MD, [facility] ([phone]), at 11/19/2021 2:58 AM Inpatient Medications: Scheduled ??? cefTRIAXone 2 g Intravenous Q24H ??? metroNIDAZOLE 500 mg Oral TID ??? lisinopriL 40 mg Oral Daily ??? thiamine 100 mg Oral Daily ??? folic acid 1,000 mcg Oral Daily ??? PHENobarbitaL 0.24 mg/kg/dose ([place]) Oral BID ??? pantoprazole EC 40 mg [...] cognitive impairment presented 11/18/21 for admission to [facility] (transferred from [facility] ED) at the [...] #Acute alcohol withdrawal-suspected - Call patient's clinic ([facility], ) in AM to confirm 90 [...] Tubes/ Drains Wound Vac DVT prophylaxis Lovenox PT/OT/REGIONAL WILDLIFE AGENT ordered Wound care Per surgical team at this time Anticipated Disposition TBD Team Pager (MD Coverage 02/12): [phone] Family Update At bedside 11/22 PCP LISA [...] on Friday to evaluate as appropriate. Pager: [phone] CHRISTINA LEONARD OT 11/23/2021 Occupational Therapy Rehabilitation [...] ??? Patient has active durable power of workers compensation defense attorney (DPOA) designee for healthcare ??? Methadone [...] Time Provider Department Center 01/15/2022 12:00 PM [facility] CT [address] [facility] RAD CT [facility] Rad Palomo Archer RN - 11/23/2021 2:42 [...] infusion. Please page the PICC room at [phone] or call [phone] between the hours of 7:00am and 5:30pm Friday-Friday for PICC line placement/scheduling. After hours the Vascular Access Service can be reached at anytime on pager [phone] PICC requests for the following day. [ X] I have contacted the physician to request PICC line placement for this patient. T Trisha Velasquez RN - 11/22/2021 6:31 PM [...] and complete OT evaluation when appropriate. Pager: [phone] Laurel Em OT 11/22/2021 Occupational Therapy Rehabilitation [...] who have questions please contact the health chiropractic care that requested your imaging first. Electronically signed by: Wicho Michael MD, [facility] ([phone]), at 11/19/2021 2:58 AM Inpatient Medications: Scheduled ??? vancomycin 1,250 mg Intravenous Q12H ??? Vancomycin Level - MAR Order Reminder NOT APPLICABLE Once ??? lisinopriL 40 mg Oral Daily ??? thiamine 100 mg Oral Daily ??? folic acid 1,000 mcg Oral Daily ??? PHENobarbitaL 0.48 mg/kg/dose ([place]) Oral BID Followed by ??? [START ON 11/23/2021] PHENobarbitaL 0.24 mg/kg/dose ([place]) Oral BID ??? piperacillin-tazobactam 3.375 g Intravenous [...] cognitive impairment presented 11/18/21 for admission to [facility] (transferred from [facility] ED) at the [...] #Acute alcohol withdrawal-suspected - Call patient's clinic ([facility], ) in AM to confirm 90 [...] Tubes/ Drains Wound Vac DVT prophylaxis Lovenox PT/OT/REGIONAL WILDLIFE AGENT ordered Wound care Per surgical team at this time Anticipated Disposition TBD Team Pager (MD Coverage 02/12): [phone] Family Update Left VM for spouse 11/22 [...] ??? Patient has active durable power of workers compensation defense attorney (DPOA) designee for healthcare ??? Methadone [...] Time Provider Department Center 01/15/2022 12:00 PM [facility] CT [address] [facility] RAD CT [facility] Rad Antoni Michele MD - 11/21/2021 5:54 PM EDT Images [...] who have questions please contact the health chiropractic care that requested your imaging first. Electronically signed by: Wicho Michael MD, [facility] ([phone]), at 11/19/2021 2:58 AM Inpatient Medications: Scheduled ??? [START ON 11/22/2021] Vancomycin Level - MAR Order Reminder NOT APPLICABLE Once ??? lisinopriL 40 mg Oral Daily ??? thiamine 100 mg Oral Daily ??? folic acid 1,000 mcg Oral Daily ??? PHENobarbitaL 0.96 mg/kg/dose ([place]) Oral BID Followed by ??? [START ON 11/22/2021] PHENobarbitaL 0.48 mg/kg/dose ([place]) Oral BID Followed by ??? [START ON 11/23/2021] PHENobarbitaL 0.24 mg/kg/dose ([place]) Oral BID ??? piperacillin-tazobactam 3.375 g Intravenous [...] cognitive impairment presented 11/18/21 for admission to [facility] (transferred from [facility] ED) at the [...] #Acute alcohol withdrawal-suspected - Call patient's clinic ([facility], ) in AM to confirm 90 [...] Tubes/ Drains Wound Vac DVT prophylaxis Lovenox PT/OT/REGIONAL WILDLIFE AGENT ordered Wound care Per surgical team at this time Anticipated Disposition TBD Team Pager ( Coverage 02/12): [phone] Family Update Spouse contacted and updated via [...] to follow up for evaluation . Pager: [phone] CHRISTINA LEOANRD OT 11/21/2021 Occupational Therapy Rehabilitation Department Antoni [...] ??? Patient has active durable power of workers compensation defense attorney (DPOA) designee for healthcare ??? Methadone [...] Time Provider Department Center 01/15/2022 12:00 PM [facility] CT [address] [facility] RAD CT [facility] Rad Stephanie Pate RN - 11/20/2021 7:34 [...] to and read back by Sd Cedillo 07/10/22 23:16:16 VM * Many Neutrophils seen Many [...] who have questions please contact the health chiropractic care that requested your imaging first. Electronically signed by: Wicho Michael MD, [facility] ([phone]), at 11/19/2021 2:58 AM Inpatient Medications: Scheduled [...] cognitive impairment presented 11/18/21 for admission to [facility] (transferred from [facility] ED) at the [...] #Acute alcohol withdrawal-suspected - Call patient's clinic ([facility], ) in AM to confirm 90 [...] Tubes/ Drains Wound Vac DVT prophylaxis Lovenox PT/OT/REGIONAL WILDLIFE AGENT ordered Wound care Per surgical team at this time Anticipated Disposition TBD Team Pager (MD Coverage 02/12): [phone] Family Update Spouse contacted and updated via [...] ??? Patient has active durable power of workers compensation defense attorney (DPOA) designee for healthcare ??? Methadone [...] Time Provider Department Center 01/15/2022 12:00 PM [facility] CT [address] [facility] RAD CT [facility] Rad Stephanie Pate RN - 11/19/2021 7:38 [...] Total Minutes, Occupational Therapy: 0 Reason: 11/19/21 0537 Evaluation & Treatment Document Type contact Total Minutes, Occupational Therapy 0 Comment, Session Not Performed Order received. Chart reviewed. Checked in with PT, who evaluated Pt this morning. Pt able to get to/from bathroom with assistance. Plan to return to OR tomorrow. OT to follow up Friday. Pager: [phone] CHRISTINA LEONARD OT 11/19/2021 Occupational Therapy Rehabilitation [...] who have questions please contact the health chiropractic care that requested your imaging first. Electronically signed by: Wicho Michael MD, [facility] ([phone]), at 11/19/2021 2:58 AM Inpatient Medications: Scheduled [...] cognitive impairment presented 11/18/21 for admission to [facility] (transferred from [facility] ED) at the [...] #post-op pain control - Call patient's clinic ([facility], ) in AM to confirm 90 [...] MIVF PIV Tubes/ Drains DVT prophylaxis enoxaparin PT/OT/REGIONAL WILDLIFE AGENT consulted Wound care Anticipated Disposition TBD Team Pager ( Coverage 02/12): [phone] Family Update Family updated at bedside 11/19 PCP LISA Levi PA 11/19/2021 Estefani Juarez RN - 11/19/2021 11:58 AM EDT Images from the original note were not included. 11/19/211156 [REMOVED] Peripheral IV Line - Single Lumen 11/18/211806 cephalic vein (lateral side of arm), left 20 gauge Removal Date/Time: 11/19/211153 Placement Date/Time: 11/18/211806 Location: cephalic vein (lateralside of arm), left Device: [id number] catheter system Technique: Anatomical Landmarks Ultrasound Imaging: [...] removed;extremity elevated;provider notified Infiltration/Extravasation Scale Soledad Ramos [id number] 149/149-A Infiltration appearance: Requested to evaluate possible [...] measuring tape and identifier in the photo) GAUGER CHIEF CARING FOR THIS PATIENT WILL CONTINUE TO [...] cognitive impairment presenting for admission from the [facility] (transferred from [facility] ED) at the [...] 12.71) performed by Geovanna Lewis MD at [facility] MAIN OR ??? PRO AMPUTATION TOE, MT-P JT Right 11/18/2021 AMPUTATION TOE, METATARSO-PHALANGEAL JOINT (WRVU 5.82) performed by Sammy Baker MD at [facility] E[place]NE ??? PRO TOTAL KNEE ARTHROPLASTY Left 12/13/2015 @TOTAL KNEE ARTHROPLASTY performed by Gordon Mallory MD at [facility] MAIN OR ??? PRO UPPER GI ENDOSCOPY, DIAGNOSTIC Bilateral 08/17/2015 EGD, UPPER GI ENDOSCOPY performed by Trev Hong MD at [facility] ENDOSCOPY ??? REVISION TOTAL HIP ARTHROPLASTY bilateral for hip AVN ??? SPINE SURGERY Active Non-Hospital Problems Diagnosis ??? Pruritic rash ??? Cellulitis ??? Osteomyelitis ??? Neuropathic ulcer of toe of right foot with fat layer exposed ??? Neuropathic ulcer of foot, right, with fat layer exposed ??? Patient has active durable power of workers compensation defense attorney (DPOA) designee for healthcare ??? Methadone [...] L 4th and 5th toes amputated; see automatic engraver for details Musculoskeletal: ROM: WFL Strength: WFL, [...] chronic b/l foot wounds (previous osteomyelitis), prior [id number] amputations, COPD on 2 L O2 at home, opioid use disorder on methadone and mild cognitive impairment presenting for admission from the [facility] (transferred from [facility]) at the [...] in this evaluation. Time IN / OUT: 2286-4007 Total Minutes, Physical Therapy: 37 Billing Code: Evaluation Radha Pierre PT Pager: [phone] Physical Therapy Inpatient Rehabilitation Department Harley Raymond [...] ??? Patient has active durable power of workers compensation defense attorney (DPOA) designee for healthcare ??? Methadone [...] Time Provider Department Center 01/15/2022 12:00 PM [facility] CT [address] [facility] RAD CT [facility] Rad Araceli Lee RN - 11/18/2021 11:34 PM EDT [facility] bed from PACU s/p R [...] nurseIfeanyi. Plans for transport per protocol to [facility]. documented in this encounter H&P [...] closure Edi Childress MD Orthopaedic Surgery Pager [phone] I saw and evaluated the patient on [...] foot I&D. Harley Raymond MD Orthopaedic Surgery [facility] I saw and evaluated the patient on [...] properly marked. Harley Raymond MD Orthopaedic Surgery [facility] Valentina Montoya MD - 11/18/2021 5:49 PM [...] cognitive impairment presenting for admission from the [facility] (transferred from [facility] ED) at the request of the orthopedic surgery service for necrotizing soft tissue infection of the right foot/great toe. History obtained from patient and chart review . Soledad relates that he initially presented to [facility] this AM after rapid progression of [...] He was administered clindamycin and [facility]com[facility] and recommended transfer to [facility] ED for further work-up and evaluation for [...] ??? Patient has active durable power of workers compensation defense attorney (DPOA) designee for healthcare [id number] ??? Verruca plantaris B07.0 ??? Pruritic rash L28.2 ??? Necrotizing fasciitis M72.6 Past Surgical History: Past Surgical History: Procedure Laterality Date ??? PRO AMPUTATION FOOT, TRANSMETATARSAL Left 03/10/2020 AMPUTATION, TRANSMETATARSAL (WRVU 12.71) performed by Geovanna Lewis MD at [facility] MAIN OR ??? PRO TOTAL KNEE ARTHROPLASTY Left 12/13/2015 @TOTAL KNEE ARTHROPLASTY performed by Gordon Mallory MD at [facility] MAIN OR ??? PRO UPPER GI ENDOSCOPY, DIAGNOSTIC Bilateral 08/17/2015 EGD, UPPER GI ENDOSCOPY performed by Trev Hong MD at [facility] ENDOSCOPY ??? REVISION TOTAL HIP [...] Social History Narrative [place] grew [place]. 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 Pt has been exposed to wood dust. [...] on file Patient lives with his in [place]. 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 Current everyday smoker of 1 pack a [...] patients who have questions please contactthe health chiropractic care that requested your imaging first. Electronically signed by: Kushal Pascual MD, [facility] ([phone]), at 11/18/2021 1:16 PM ASSESSMENT and PLAN: Soledad Ramos is a 66 y.o. male with hx of EtOH abuse with alcoholic neuropathy and chronic b/l foot wounds(previous osteomyelitis), prior left 4th-5th amputations, COPD on 2 L O2 at home, opioid use disorder on methadone and mild cognitive impairment presenting for admission from the [facility] (transferred from [facility] ED) at the [...] neuropathy #post-op pain control - call patient's clinic([facility]) in AM to confirm 90 mg [...] of two midnights or is on the [facility] inpatient only procedure list (status C) due to: acute necrotizing soft tissue infection of the right great toe/2nd toe requiring (multiple) debridements and IV antibiotics, acute on chronic osteomyelitis, cellulitis RLE Valentina Montoya MD [facility] Medicine Pager [phone] Alis Dowling MD - 11/18/2021 5:39 PM [...] to the planned procedure. Hand Hygiene: The bulb tester did perform hand hygiene prior to line insertion. Catheter type: PICC Lot number: [id number] Procedure Technique: Skin was prepped with chlorhexidine. [...] on 11/18/21 Source Information Alis Dowling MD [facility] Ed Results for orders placed or [...] 3 VBGs No results for input(s): PHVEN, QNT5FKL, PO2VEN, NNY7ZPH, LACTATEVEN, BEVEN, HGBVEN, R5VEOUY, COHBVEN, METHBVEN, NAWBVEN, KWBVEN, ICAWBVEN, CLWBVEN, GLUCWBVEN [...] 9:26 PM ED Course as of 11/19/21152 [place] Nov 18, 2021 1740 Ortho Consult: Plan for C, 1847 CRP, acute inflammation(!) CRP 265.6 7 Basic [...] 3:41 PM EDT Transfer nursing report from [facility] Coy:coming with R foot infection, [...] Orders: OPAT Orders Location: Home, Referred to [facility] Coordination, Referred to Home Health Agency Home Health Services: Registered Nurse, Physical Therapy, Occupational Therapy, Wound care Agency Referrals & Follow-up Care: Contact information for follow-up [address] [place] [address] [facility] Vis[facility] Nurse and Hospice for [address] [address] Transportation: family or friend will provide *Spouse [...] of this letter. Tequila Sanchez RN, BSN Hotel Services Sales Representative - Medicine Office of Care Management Office: Pager: [phone] Consult Note - Reji Monte MD - 11/29/2021 2:22 PM EDT BIT Evaluation Referral source: Nursing referral Reason for referral: Alcohol Use Disorder Opioid Use Disorder. Medication-Assisted Treatment Plan Was patient offered MOUD: No. Reason MOUD not offered?: On MAT prior to admission. Methadone Relevant history: Mr. 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 Pt cleared per PT/OT for dc home per my conversation with NIEVES Padilla. Pt also has been accepted at infusion suite in [facility] for outpt IV ABx infusion. I [...] clinical support of Methadone assisted therapy at [facility] in [place]. Pt likely will discharge today and continue titrating methadone through this clinic. Team has spokenwith [facility] provider who indicated likely plan for [...] clinical support of Methadone assisted therapy at [facility]. 2. Last dose letter/documentation to [facility] including time of discharge and the [...] Plan for now is titration 10mg/day per [facility] provider, monitoring QTc. - If pt remains tachycardic (ie >60bpm) bazette QTc correction may overestimate risk of TdP and likely risk of harm to patient if he relapses is much greater than low/theoretical risk of TdP. [address] [place] [address] Time spent with the patient (min):15 minutes Time spent on case coordination (min): 30 minutes Consult Note - Reji Monte MD - 11/28/2021 12:20 PM EDT Almita PEPE MD note: Met w pt re: methaodne. Pt experiencing subjective and objective sx of withdrawal (piloerection, anxiety, reslessness). Noted QTc 496 from yesterday, but recalculated myron 455. Given r/b would recincreasing methadone dose to 45mg total daily, including 30mg now. Plan Stop Methadone 15mg BID and give additional 30mg, now for total 45mg today. Methadone 45mg QD starting tmrw Defer to [facility] for further titration recs when they [...] maintained. Report given to RN on at 3530. Assessment as filed. Safety maintained. Will continue [...] Hands on Surveillance [continuous indirect monitoring]: Adrianoo on, tele on Patient-specific fall prevention interventions for sensory deficits provided, if applicable: [X] Yes CPG GOAL OUTCOME EVALUATION: Plan of Care - [place], Khadijah Thompson RN - 11/27/2021 4:03 PM EDT Peripherally Inserted Central Catheter (PICC) Teaching Sheet Peripherally inserted central catheters ([id number]) (PICC) are used when you need IV [...] catheter? PICC lines are used for terminal gauger treatments. PICC lines may be used for [...] can be set up via the nurse Hotel Services Sales Representative to help you. What are possible complications [...] OPAT recommended CM sent referral to [facility] , [facility] and ( Lia - resumption of care ) Orders Pended . [place] will notneed a new order unless order [...] Referrals: Visiting Nurse [facility] of [address] [address] PHONE: [phone] FAX: [phone] [place], [place] or [facility] Intake office: tel: [phone] [place], [place] Office [place], [place] Office Transportation: family or friend will provide Barriers to discharge: Discharge planning Plan going forward: Care Management will continue to follow and assist with discharge planning and coordination of care as indicated. Anticipated Date of Discharge: 11/28/2021 Office of Care Management Surgery Team Hotel Services Sales Representative [email or web address] Pager [phone] Consult Note - Brian Kaminski, POLICY WRITER - 11/27/2021 12:31 PM EDT BIT Evaluation Referral source: Nursing referral Reason for referral: Alcohol Use Disorder Opioid Use Disorder. Medication-Assisted Treatment Plan Was patient offered MOUD: No. Reason MOUD not offered?: On MAT prior to admission. Methadone Relevant history: Mr. 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 He reports his current Methadone dose is 90 mg daily take home medication prescription, having graduated from daily dosing years ago. He is agreeable to consultation between his primary team and [facility] on potential Methadone dose titration and transfer of care. He reports his last heavy use of alcohol was many years ago and reports only occasional use currently 1-2 beers per month and credits past engagement in outpatient counseling for this. [address] [place] [address] Mr. Ramos was open to instruction [...] clinical support of Methadone assisted therapy at [facility] in [place]. He endorses a remote history of heavy alcohol use and reports 1-2 beers per month currently. He plans to practice 4-7-8 Breathing technique for stress reduction. Interventions delivered: Consulted with care team Mindfulness Based Stress Reduction Motivational interviewing Pharmacologic treatment Recommend: -Primary team consultation with [facility] for potential Methadone dose titration and transfer of care. Plan: 1. Patient plans to remain abstinent from illicit opioids with the ongoing clinical support of Methadone assisted therapy at [facility]. 2. Patient plans to [...] 15 minutes Consult Note - Terrance Peres, [facility] - 11/27/2021 10:54 AM EDT Clinical Pharmacist Note - VancLASHA Soledad Ramos [id number] Soledad Ramos is a 66 y.o. [...] questions you may have. Alternately, during off-hours (9p-) you may call [phone] to contact a pharmacist. TERRANCE PERES RPH [...] Flores MD - 11/25/2021 8:54 AM EDT [facility] Operative Note Patient Name: Soledad Ramos : [id number] MR#: [id number] Case Date: 11/25/2021 Surgeon: Surgeon(s) and Role: [...] not need to include opening and closing). 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 At [facility], patient was stable but with WBC 23k, and was started on Clindamycin and Vancomycin before transfer to [facility]. Noted to have sinus tract on plantar surface. On arrival to [facility], Soledad was afebrile and hemodynamically stable. He [...] allergies. Social History: Lives with his in [place], [place]. One dog. 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 [...] have. Alternately, during off-hours you may call [phone] to contact a pharmacist. Care Management - [...] Anticipated Date of Discharge: 11/26/2021 Jaclyn Fry [facility] [phone] Consult Note - Celina Arce RN - 11/22/2021 1:15 PM EDT PICC line placement canceled for this patient due to being unable to obtain consent from after multiple attempts. Consult Note - Jeanie Tenorio [facility] - 11/22/2021 10:44 AM EDT Clinical Pharmacist Note-Vanc Soledad Ramos [id number] Soledad Ramos is a 66 y.o. [...] have. Alternately, during off-hours you may call [phone] to contact a pharmacist. Jeanie Tenorio RPH Pager [phone] Plan of Care - Zbigniew Riddle RN [...] Hands on Surveillance [continuous indirect monitoring]: Mascristiano on Patient-specific fall prevention interventions for sensory [...] assess site. PLAN MOVING FORWARD: Wound Debridement/[place]ashout 7/13 PT/OT IV antibiotics ?? INDIVIDUALIZED FALL PREVENTION [...] COVID test: Lab Results Component Value Date [id number] Not Detected 03/09/2020 Past medical History: Past [...] Padmini would be surrogate decision maker per [place] surrogate decision making law. (Only good for 180 days) Any patient receiving care at [facility] must abide by [place] law. The hierarchy for surrogate decision making [...] (i) The agent with financial power of workers compensation defense attorney or a conservator appointed in accordance [...] standard (knee scooter) Home Address confirmed as: [address] [facility] [address] Social & Family Supports: All names listed below confirmed with patient as current and correct Extended Emergency Contact Information Primary Emergency Contact: Padmini [facility] Relation: Spouse Secondary Emergency Contact: Sparkle Khan [facility] Relation: Child Current Care Provided by: [...] SUPPLEMENT Prescription Coverage: Yes Preferred Pharmacy: [facility] [place] [address] - [address] [place] [phone] [facility] - [place], [place] - [address] [facility] [address] [facility] [address] [place] [address] [facility] [address] [place] [address] Status: Patient is a : No Primary Care Provider: Brian Fall APRN [phone] Patient/Caregiver Goals of Treatment: Return home Potential [...] transition of care planning. Jaclyn Fry [facility] [phone] Plan of Care - Araceli Lee RN [...] Baker MD - 11/18/2021 9:35 PM EDT [facility] Operative Note Patient Name: Soledad Ramos : [id number] MR#: [id number] Case Date: 11/18/2021 Surgeon: Surgeon(s) and Role: [...] comorbid 66-year-old male who [facility] for acute worsening for the past 3 [...] low continuous, 1 black sponge. - Appreciate [facility] medicine care Attestation: Case Date: 11/18/2021 I was present and I participated during the entire procedure (does not need to include opening and closing). Sammy Baker MD 11/19/2021 Brief Op Note - Sammy Baker MD - 11/18/2021 9:30 PM EDT Brief Operative Note Patient Name: Soledad Ramos : [id number] MR#: [id number] Case Date: 11/18/2021 Surgeon: Surgeon(s) and Role: [...] unwell. He was initially seen at [facility] today and presented there. See my prior telephone encounter for telephone consultation in which I requested he be transferred here for further evaluation and management with orthopedic surgery consultation. At [facility] his white count was 20 3K, his [...] ??? Patient has active durable power of workers compensation defense attorney (DPOA) designee for healthcare ??? Methadone [...] data in the 24 hours ending 11/18/21 8571 There is no height or weight on [...] bedside with me Please page Orthopaedic consults ([phone]) with any questions or concerns. Alis Dowling MD P. [phone] 11/18/21 5:31 PM Future Appointments Date Time Provider Department Center 01/15/2022 12:00 PM [facility] CT [address] [facility] RAD CT [facility] Rad Associated attestation - Sammy Baker MD [...] 12/11/2021 Office Visit Orthopaedics Marion Tavera APRN [facility] ORTHOPAEDIC SURG [place], [place] [address] (Wo rk) 01/15/2022 Appointment Radiology Stiven Cervantes MD [facility] Pulmonary Medici [place], [place] [address] (Wo rk) Scheduled Orders Name [...] Esquivel, Understanding Action Plan 9:07 AM EDT) [facility] Note: Formatting of this note might [...] 494 ms MUSE SYSTEM (Bezet) Calculated P Harrison 52 degrees MUSE SYSTEM Calculated R Harrison 27 degrees MUSE SYSTEM Calculated T Harrison 57 degrees MUSE SYSTEM INTERPRETATION Normal sinus rhythm with sinus arrhythmia MUSE SYSTEM borderline EKG When compared with ECG of 27-NOV-2021 11:44, Criteria for Inferior infarct are no longer Present I personally reviewed the tracing and edited the fellows int erpretation Confirmed by fellow MD Alexandra, Marco A ([id number]) on 022 3:05:39 PM Confirmed by Najma Ren ([id number]) on 11/29/2021 6:50:48 P M Specimen Anatomical Collection Method Collection Time Receive d Time (Source) Location / / Volume Laterality 11/29/2021 1:02 PM 6:50 EDT PM EDT Jennifer Martinez MD ECG ORDERABLES Performing Organization Address City/State/ZIP Code Phon e Number MUSE SYSTEM (ABNORMAL) Differential, Automated (11/29/2021 3:40 AM EDT) [facility] gist Method Time Signature Neutrophils % 62.4 % [facility] Neutr Abs (ANC) 7.80 (H) 1.70 - [facility] 6.10 [facility] x10(3)/[facility] LABORATORY Lymphocytes % 23.8 % [facility] Lymphocytes Abs 3.0 0.9 - 3.2 [facility] x10(3)/[facility] LABORATORY Monocytes % 6.0 % [facility] Monocyte Abs 0.8 0.3 - 0.9 [facility] x10(3)/[facility] LABORATORY Eosinophils % 5.7 % [facility] Eosinophils Abs 0.7 (H) 0.0 - 0.4 [facility] x10(3)/[facility] LABORATORY Basophils % 1.3 % [facility] Basophils Abs 0.2 (H) 0.0 - 0.1 [facility] x10(3)/[facility] LABORATORY Immature Gran % 0.80 % [facility] Comment: Immature granulocytes(IG's)percentage an d absolute count will include metamyelocytes, myelocytes, and promyelo cytes. Blood smears from CBCs yielding IG's will be scanned manually for concor dance. If this scan disagrees with the automated IG or if promyelocytes are not ed, a manual differential will be performed. Shannan Gran Abs 0.10 (H) 0.00 - 0.04 x10(3)/[facility] LABORATORY Specimen Anatomical Collection Method Collection Time Receive d Time (Source) Location / / Volume Laterality Blood 11/29/2021 3:40 AM 4:00 EDT AM EDT Resulting Agency Comment Spec In Lab NIEVES Peoples HEMATOLOGY ORDERABLES Performing Organization Address City/State/[facility] [place] [address] (ABNORMAL) Hemogram (11/29/2021 3:40 AM EDT) Analysis Performed At Patho logist Time Signature WBC 12.5 (H) 4.0 - 9.5 [facility] x10(3)/[facility] LABORATORY RBC 4.34 (L) 4.58 - [facility] 5[facility]54 [facility] x10(6)/[facility] LABORATORY Hemoglobin 13.9 13.7 - [facility] 16.[facility] g/dL [facility]ATORY Hematocrit 41.3 40.5 - [facility] 48.5 % [facility] MCV 95.2 (H) 82.9 - [facility] 93.1 [facility] LABORATORY MCH 32.0 27.5 - [facility] 32.1 [facility] LABORATORY MCHC 33.7 32.0 - [facility] 35.7 g/dL [facility] Platelets 494 (H) 145 - 357 [facility] x10(3)/[facility] LABORATORY RDWSD 49.2 (H) 36.0 - [facility] RDWCV 14.2 (H) 11.4 - [facility] 13.8 % [facility] LAB[facility]AT[facility] MPV 9.5 7.6 - 12.9 [facility] LABORATORY nRBC % Auto 0.0 % [facility] nRBC Abs Auto 0.000 0.000 - [facility] 0.000 [facility] x10(3)/[facility] LABORATORY Specimen Anatomical Collection Method Collection Time Receive d Time (Source) Location / / Volume Laterality Blood 11/29/2021 3:40 AM 4:00 EDT AM EDT Resulting Agency Comment Spec In Lab NIEVES Peoples HEMATOLOGY ORDERABLES Performing Organization Address City/State/[place] [address] (ABNORMAL) Basic Metabolic Panel (non-fasting) (11/29/2021 3:40 AM EDT) athologist Signature Glucose Lvl 110 65 - 199 [facility] mg/dL [facility] Comment: Diabetes: >=200 mg/dL plus symp toms BUN 22 (H) 10 - 20 mg/dL [facility] Creatinine 1.47 0.80 - 1.50 mg/dL [facility] LAB[facility] Sodium 138 135 - 145 [...] estions. Chloride 101 98 - 107 mmol/L [facility] CO2 25 22 - 31 mmol/L [facility] Anion Gap 12 5 - 15 mmol/L [facility] Calcium 9.2 8.5 - 10.5 mg/dL [facility]ORY Estimated GFR 52 (L) >=60 mL/min/1.73 m?? [facility] Comment: This patient's estimated GFR [...] Martinez MD CHEMISTRY ORDERABLES Performing Organization Address City/[facility]/ZIP Code Phon e Number [address] Potassium (11/28/2021 6:30 PM EDT) P athologist Signature Potassium 3.6 3.5 - 5.0 [facility] LABORATORY Comment: Please note: ??Patients with WBC [...] Martinez MD CHEMISTRY ORDERABLES Performing Organization Address City/[facility]/ZIP Code Phon e Number [address] Magnesium (11/28/2021 3:15 AM EDT) P athologist Signature Magnesium 0.74 0.69 - 1.07 [facility] LABORATORY Specimen Anatomical Collection Method Collection Time Receive d Time (Source) Location / / Volume Laterality Blood Venous Draw / 11/28/2021 3:15 AM 11/29/19 3:25 Unknown EDT AM EDT Resulting Agency Comment Spec In Lab Stephanie Parrish MD CHEMISTRY ORDERABLES Performing Organization Address City/State/[place] [address] (ABNORMAL) Differential, Automated (11/28/2021 3:15 AM EDT) [facility] Method Time Signature Neutrophils % 62.7 % [facility] Neutr Abs (ANC) 8.02 (H) 1.70 - [facility] 6.10 [facility] x10(3)/[facility] LABORATORY Lymphocytes % 24.2 % [facility] Lymphocytes Abs 3.1 0.9 - 3.2 [facility] x10(3)/[facility] LABORATORY Monocytes % 6.6 % [facility] Monocyte Abs 0.8 0.3 - 0.9 [facility] x10(3)/[facility] LABORATORY Eosinophils % 4.7 % [facility] Eosinophils Abs 0.6 (H) 0.0 - 0.4 [facility] x10(3)/[facility] LABORATORY Basophils % 0.8 % [facility] Basophils Abs 0.1 0.0 - 0.1 [facility] x10(3)/[facility] LABORATORY Immature Gran % 1.00 % [facility] Comment: Immature granulocytes(IG's)percentage an d absolute count will include metamyelocytes, myelocytes, and promyelo cytes. Blood smears from CBCs yielding IG's will be scanned manually for concor dance. If this scan disagrees with the automated IG or if promyelocytes are not ed, a manual differential will be performed. Shannan Gran Abs 0.13 (H) 0.00 - 0.04 x10(3)/[facility] LABORATORY Specimen Anatomical Collection Method Collection Time Receive d Time (Source) Location / / Volume Laterality Blood 11/28/2021 3:15 AM 07/20/202 2 3:23 EDT AM EDT Resulting Agency Comment Spec In Lab NIEVES Peoples HEMATOLOGY ORDERABLES Performing Organization Address City/State/[place] [address] (ABNORMAL) Hemogram (11/28/2021 3:15 AM EDT) Analysis Performed At Patho logist Time Signature WBC 12.8 (H) 4.0 - 9.5 [facility] LABORATORY RBC 4.38 (L) 4.58 - [facility] 5.54 [facility] x10(6)/[facility] LABORATORY Hemoglobin 13.9 13.7 - [facility] 16.[facility] g/dL [facility] Hematocrit 41.6 40.5 - [facility] 48.5 % [facility] MCV 95.0 (H) 82.9 - [facility] 93.1 [facility] LABORATORY MCH 31.7 27.5 - [place] 32.1 pg [facility] MCHC 33.4 32.0 - [place] 35.7 g/dL [facility] Platelets 504 (H) 145 - 357 [facility] x10(3)/[facility] LABORATORY RDWSD 49.2 (H) 36.0 - [facility] 45.0 [facility] LABORATORY RDWCV 14.3 (H) 11.4 - [facility] 13.8 % [facility] MPV 9.3 7.6 - 12.9 [facility] LABORATORY nRBC % Auto 0.0 % [facility] nRBC Abs Auto 0.000 0.000 - [place] [facility] 0.000 [facility] x10(3)/[facility] LABORATORY Specimen Anatomical Collection Method Collection Time Receive d Time (Source) Location / / Volume Laterality Blood 11/28/2021 3:15 AM 2 3:23 EDT AM EDT Resulting Agency Comment Spec In Lab NIEVES Peoples HEMATOLOGY ORDERABLES Performing Organization Address City/State/[place] [address] (ABNORMAL) Basic Metabolic Panel (non-fasting) (11/28/2021 3:15 AM EDT) athologist Signature Glucose Lvl 114 65 - 199 [facility] mg/dL [facility] Comment: Diabetes: >=200 mg/dL plus symp toms BUN 14 10 - 20 mg/dL [facility] Comment: result rechecked-sf Creatinine 1.49 0.80 - 1.50 mg/dL [facility] Sodium 141 135 - 145 mmol/L [facility] Potassium 2.9 (Critical) 3.5 - 5.0 mmol/L [facility] Comment: Called by: , Read back by: claudia velazquez, Date/Time:11/28/21 04:00. Please note: ??Patients with WBC >100,00 0 may have falsely elevated Potassium levels. ??For accurate Potassium quantif ication in these patients send serum separator tube (gold top) for subsequent determinations. ??Contact the Clinical Chemistry Laboratory if there are any qu estions. Chloride 102 98 - 107 mmol/L [facility] CO2 25 22 - 31 mmol/L [facility] Anion Gap 14 5 - 15 mmol/L [facility] Calcium 9.0 8.5 - 10.5 mg/dL [facility] Estimated GFR 51 (L) >=60 mL/min/1.73 m?? [facility] Comment: This patient's estimated GFR [...] Address City/State/ZIP Code Phon e Number [place] [id number] Place PICC Line: Contact Vascular Access Page [phone] Extremity to exclude: No restrictions; Is PICC [...] the planned procedu re. Hand Hygiene: The bulb tester did perform hand hygiene pr ior to line insertion. Catheter type: PICC Lot number: [id number] Procedure Technique: Skin was prepped with chlorhexidine. [...] External: 0 cm Tip in SVC per Vida The line was not placed over a [...] who have questions please contact the health chiropractic care that requested your imaging first. ? Electronically signed by: Penny Ge MD , [facility] [place] [facility] ([phone]), at 11/27/2021 4:00 PM Narrative 11/27/2021 4:00 [...] ho have questions please contact the health chiropractic care that requested your imaging first. Electronically signed by: Penny Ge MD , [facility] [place] [facility] ([phone]), at 11/27/2021 4:00 PM Jennifer Martinez MD [...] 495 ms MUSE SYSTEM (Bezet) Calculated P Harrison 38 degrees MUSE SYSTEM Calculated R Harrison -7 degrees MUSE SYSTEM Calculated T Harrison 37 degrees MUSE SYSTEM INTERPRETATION Normal sinus rhythm MUSE SYSTEM Septal infarct (cited on or before 20-NOV-2021) Inferior infarct , age undetermined Abnormal ECG When compared with ECG of 20-NOV-2021 12:47, No significant change was found I personally reviewed the tracing and edited the fellows int erpretation Confirmed by fellow MD Devorah, Debra ([id number]) on 11/28/2021 11: 56:35 AM Confirmed by MD Jacob, Cristian ([id number]) on 11/28/2021 1:18:37 PM Specimen Anatomical Collection Method Collection Time Receive d Time (Source) Location / / Volume Laterality 11/27/2021 11:44 11/28/2021 1:18 AM EDT PM EDT Jennifer Martinez MD ECG ORDERABLES Performing Organization Address City/State/ZIP Code Phon e Number MUSE SYSTEM C. Difficile Screen (11/26/2021 1:47 PM EDT) [facility] Method Time Signature C Diff Screen See comment Negative [facility] Comment: Ag/Tox Neg C. diff?? [...] - GENERAL ORDER SILAS Performing Organization Address City/[facility]/[place] [address] CK (11/26/2021 6:56 AM EDT) athologist [facility] CK, Total 74 0 - 200 [facility] LABORATORY Specimen Anatomical Collection Method Collection Time Receive d Time (Source) Location / / Volume Laterality Blood Venous Draw / 11/26/2021 6:56 AM 11/27/19 7:32 Unknown EDT AM EDT Resulting Agency Comment Spec In Lab NIEVES Peoples CHEMISTRY ORDERABLES Performing Organization Address City/[facility]/[place] [address] Magnesium (11/26/2021 6:56 AM EDT) athologist Signature Magnesium 0.75 0.69 - 1.07 [facility] mmol/L [facility] Specimen Anatomical Collection Method Collection Time Receive d Time (Source) Location / / Volume Laterality Blood Venous Draw / 11/26/2021 6:56 AM 11/27/19 7:32 Unknown EDT AM EDT Resulting Agency Comment Spec In Lab NIEVES Peoples CHEMISTRY ORDERABLES Performing Organization Address City/State/[place] [address] (ABNORMAL) Differential, Automated (11/26/2021 6:56 AM EDT) [facility] gist Method Time Signature Neutrophils % 70.3 % [facility] Neutr Abs (ANC) 8.41 (H) 1.70 - [facility] 6.10 [facility] x10(3)/[facility] LABORATORY Lymphocytes % 15.1 % [facility] Lymphocytes Abs 1.8 0.9 - 3.2 [facility] x10(3)/[facility] LABORATORY Monocytes % 7.9 % [facility] Monocyte Abs 1.0 (H) 0.3 - 0.9 [facility] x10(3)/[facility] LABORATORY Eosinophils % 4.4 % [facility] Eosinophils Abs 0.5 (H) 0.0 - 0.4 [facility] x10(3)/[facility] LABORATORY Basophils % 1.0 % [facility] Basophils Abs 0.1 0.0 - 0.1 [facility] x10(3)/[facility] LABORATORY Immature Gran % 1.30 % [facility] Comment: Immature granulocytes(IG's)percentage an d absolute count will include metamyelocytes, myelocytes, and promyelo cytes. Blood smears from CBCs yielding IG's will be scanned manually for concor dance. If this scan disagrees with the automated IG or if promyelocytes are not ed, a manual differential will be performed. Shannan Gran Abs 0.15 (H) 0.00 - 0.04 x10(3)/[facility] LABORATORY Specimen Anatomical Collection Method Collection Time Receive d Time (Source) Location / / Volume Laterality Blood 11/26/2021 6:56 AM 2 7:10 EDT AM EDT Resulting Agency Comment Spec In Lab Harley Raymond MD HEMATOLOGY ORDERABLES Performing Organization Address City/State/[place] [address] (ABNORMAL) Hemogram (11/26/2021 6:56 AM EDT) Analysis Performed At Patho logist Time Signature WBC 12.0 (H) 4.0 - 9.5 [facility] LABORATORY RBC 4.26 (L) 4.58 - [place] 5.54 [facility] x10(6)/[facility] LABORATORY Hemoglobin 13.6 (L) 13.7 - [place] 16.5 g/dL [facility] Hematocrit 40.5 40.5 - [facility] [place] 48.5 % [facility] MCV 95.1 (H) 82.9 - [facility] [place] 93.1 [facility] LABORATORY MCH 31.9 27.5 - [place] 32.1 pg [facility] MCHC 33.6 32.0 - [place] 35.7 g/dL [facility] Platelets 418 (H) 145 - 357 [facility] x10(3)/[facility] LABORATORY RDWSD 49.8 (H) 36.0 - [facility] [place] 45.0 [facility] LABORATORY RDWCV 14.4 (H) 11.4 - [facility] [place] 13.8 % [facility] MPV 9.3 7.6 - 12.9 [facility] nRBC % Auto 0.0 % [facility] nRBC Abs Auto 0.000 0.000 - [place] 0.000 [facility] x10(3)/[facility] LABORATORY Specimen Anatomical Collection Method Collection Time Receive d Time (Source) Location / / Volume Laterality Blood 11/26/2021 6:56 AM 2 7:10 EDT AM EDT Resulting Agency Comment Spec In Lab Harley Raymond MD HEMATOLOGY ORDERABLES Performing Organization Address City/State/[place] [address] (ABNORMAL) Basic Metabolic Panel (non-fasting) (11/26/2021 6:56 AM EDT) athologist Signature Glucose Lvl 105 65 - 199 [facility] mg/dL [facility] Comment: Diabetes: >=200 mg/dL plus symp toms BUN 8 (L) 10 - 20 mg/dL [facility] Creatinine 1.20 0.80 - 1.50 mg/dL [facility] Sodium 143 135 - 145 [...] Chloride 109 (H) 98 - 107 mmol/L [facility] CO2 22 22 - 31 mmol/L [facility] Anion Gap 12 5 - 15 mmol/L [facility] Calcium 8.8 8.5 - 10.5 mg/dL [facility] Estimated GFR 66 >=60 mL/min/1.73 m?? [facility] Comment: This patient's estimated GFR [...] Martinez MD CHEMISTRY ORDERABLES Performing Organization Address City/[facility]/[place] [address] Anaerobic Culture (11/25/2021 9:00 AM EDT) [facility] Signature Anaerobic No anaerobic [place] Culture organisms [facility] LABORATORY Specimen Anatomical Collection Method Collection Time Receive d Time (Source) Location / / Volume Laterality Leg 11/25/2021 9:00 AM 2 EDT 10:33 AM EDT Comment: Right foot proximal resection s ite first metatarsal. Resulting Agency Comment Spec In Lab Jarad Flores MD MICROBIOLOGY - GENERAL ORDER SILAS Performing Organization Address [facility] [place] [address] (ABNORMAL) Tissue culture (11/25/2021 9:00 AM EDT) Component Value Ref Test Analysis Performed At [facility] Method Time Signature Tissue Rare Coagulase negative Staphylococcus species [facility] Culture One colony of Coagulase negative Staphylococcus species #2 [place] Rare Corynebacterium species [facility] Susceptibilities previously reported HOSPITAL (A) LABORATORY Gram Stain No Neutrophils seen. [place] No microorganisms seen. [facility] OCK (A) [facility] Organism Coagulase negative [place] Staphylococcus [place] species (A) [facility] Organism Corynebacterium [place] species (A) [facility] Specimen Anatomical Collection Method Collection Time Receive d Time (Source) Location / / Volume Laterality Leg 11/25/2021 9:00 AM 2 EDT 10:33 AM EDT Comment: Right foot proximal resection s ite first metatarsal. Resulting Agency Comment Spec In Lab Jarad Flores MD MICROBIOLOGY - GENERAL ORDER SILAS Performing Organization Address City/[facility]/ZIP [facility] [place] [address] XR Foot Min 3 [...] who have questions please contact the health chiropractic care that requested your imaging first. ? Electronically signed by: Penny Ge MD , [facility] [place] [facility] ([phone]), at 11/23/2021 7:11 PM Narrative 11/23/2021 7:11 [...] ho have questions please contact the health chiropractic care that requested your imaging first. Electronically signed by: Penny Ge MD , [facility] [place] [facility] ([phone]), at 11/23/2021 7:11 PM Afshin Rogers MD IMG DX ORDERABLES (ABNORMAL) Differential, Automated (11/23/2021 4:28 PM EDT) [facility] Method Time Signature Neutrophils % 74.2 % [facility] Neutr Abs (ANC) 9.89 (H) 1.70 - [facility] 6.10 [facility] x10(3)/[facility] LABORATORY Lymphocytes % 13.0 % [facility] Lymphocytes Abs 1.7 0.9 - 3.2 [facility] x10(3)/[facility] LABORATORY Monocytes % 9.2 % [facility] Monocyte Abs 1.2 (H) 0.3 - 0.9 [facility] x10(3)/[facility] LABORATORY Eosinophils % 1.9 % [facility] Eosinophils Abs 0.2 0.0 - 0.4 [facility] x10(3)/[facility] LABORATORY Basophils % 0.7 % [facility] Basophils Abs 0.1 0.0 - 0.1 [facility] x10(3)/[facility] LABORATORY Immature Gran % 1.00 % [facility] Comment: Immature granulocytes(IG's)percentage an d absolute count will include metamyelocytes, myelocytes, and promyelo cytes. Blood smears from CBCs yielding IG's will be scanned manually for concor dance. If this scan disagrees with the automated IG or if promyelocytes are not ed, a manual differential will be performed. Shannan Gran Abs 0.13 (H) 0.00 - 0.04 x10(3)/[facility] LABORATORY Specimen Anatomical Collection Method Collection Time Receive d Time (Source) Location / / Volume Laterality Blood 11/23/2021 4:28 PM 07/15/202 2 4:55 EDT PM EDT Resulting Agency Comment Spec In Lab Harley Raymond MD HEMATOLOGY ORDERABLES Performing Organization Address City/State/ZIP Code Phon e Number [place] [id number] [facility] LABORATORY Drive (ABNORMAL) Hemogram (11/23/2021 4:28 PM EDT) Analysis Performed At Patho logist Time Signature WBC 13.3 (H) 4.0 - 9.5 [facility] [place] x10(3)/[facility] LABORATORY RBC 4.79 4.58 - [place] 5.54 [facility] x10(6)/[facility] LABORATORY Hemoglobin 15.2 13.7 - [facility] Hematocrit 45.6 40.5 - [facility] 48.5 % [facility] MCV 95.2 (H) 82.9 - [facility] 93.1 [facility] LABORATORY MCH 31.7 27.5 - [place] 32.1 pg [facility] MCHC 33.3 32.0 - [place] 35.7 g/dL [facility] Platelets 389 (H) 145 - 357 [facility] x10(3)/[facility] LABORATORY RDWSD 48.6 (H) 36.0 - [place] 45.0 [facility] LABORATORY RDWCV 14.0 (H) 11.4 - [place] 13.8 % [facility] MPV 9.2 7.6 - 12.9 [facility] nRBC % Auto 0.0 % [facility] nRBC Abs Auto 0.000 0.000 - [facility] [place] 0.000 [facility] x10(3)/[facility] LABORATORY Specimen Anatomical Collection Method Collection Time Receive d Time (Source) Location / / Volume Laterality Blood 11/23/2021 4:28 PM 2 4:55 EDT PM EDT Resulting Agency Comment Spec In Lab Harley Raymond MD HEMATOLOGY ORDERABLES Performing Organization Address City/State/[place] [address] Phosphorus (11/23/2021 4:28 PM EDT) athologist Signature Phosphorus 4.0 2.5 - 4.5 [facility] Specimen Anatomical Collection Method Collection Time Receive d Time (Source) Location / / Volume Laterality Blood 11/23/2021 4:28 PM 4:55 EDT PM EDT Resulting Agency Comment Spec In Lab Jennifer Martinez MD CHEMISTRY ORDERABLES Performing Organization Address City/State/[place] [address] (ABNORMAL) Basic Metabolic Panel (non-fasting) (11/23/2021 4:28 PM EDT) athologist Signature Glucose Lvl 96 65 - 199 [facility] mg/dL [facility] Comment: Diabetes: >=200 mg/dL plus symp toms BUN 6 (L) 10 - 20 mg/dL [facility] Creatinine 1.28 0.80 - 1.50 mg/dL [facility] Sodium 144 135 - 145 [...] estions. Chloride 105 98 - 107 mmol/L [facility] CO2 23 22 - 31 mmol/L [facility] Anion Gap 16 (H) 5 - 15 mmol/L [facility] Calcium 9.2 8.5 - 10.5 mg/dL [facility] Estimated GFR 61 >=60 mL/min/1.73 m?? [facility] Comment: This patient's estimated GFR [...] Rogers MD CHEMISTRY ORDERABLES Performing Organization Address City/[facility]/[place] [address] Anaerobic Culture (11/23/2021 1:06 PM EDT) PathC4M Method Time Signature Anaerobic No anaerobic [place] Culture organisms [facility] LABORATORY Specimen Anatomical Collection Method Collection Time Receive d Time (Source) Location / / Volume Laterality Bone TOE STRUCTURE / 11/23/2021 1:06 PM 2021 2:36 Unknown EDT PM EDT Comment: First right metatarsal resectio n #3 Resulting Agency Comment Spec In Lab Jarad Flores MD MICROBIOLOGY - GENERAL ORDER SILAS Performing Organization Address City/[facility]/[place] [address] (ABNORMAL) Bone Culture (11/23/2021 1:06 PM EDT) Component Value Ref Test Analysis Performed At [facility] Method Time Signature Bone Culture Rare Coagulase negative Staphylococcus species [place] Susceptibilities previously reported [place] (A) [facility] Gram Stain No Neutrophils seen. [place] No microorganisms seen. [facility] OCK (A) [facility] Organism Coagulase negative [place] Staphylococcus [place] species (A) [facility] Specimen Anatomical Collection Method Collection Time Receive d Time (Source) Location / / Volume Laterality Bone TOE STRUCTURE / 11/23/2021 1:06 PM 2021 2:36 Unknown EDT PM EDT Comment: First right metatarsal resectio n #3 Resulting Agency Comment Spec In Lab Jarad Flores MD MICROBIOLOGY - GENERAL ORDER SILAS Performing Organization Address City/[facility]/[place] [address] Anaerobic Culture (11/23/2021 1:06 PM EDT) [facility] Method Time Signature Anaerobic No anaerobic [place] Culture organisms [facility] LABORATORY Specimen Anatomical Collection Method Collection Time Receive d Time (Source) Location / / Volume Laterality Bone TOE STRUCTURE / 11/23/2021 1:06 PM 2021 2:39 Unknown EDT PM EDT Comment: First right metatarsal resectio n #2 Resulting Agency Comment Spec In Lab Jarad Flores MD MICROBIOLOGY - GENERAL ORDER SILAS Performing Organization Address City/[facility]/ZIP Code Phon e Number [place] [id number] LAB[address] (ABNORMAL) Bone Culture (11/23/2021 1:06 PM EDT) Component Value Ref Test Analysis Performed At [facility] Range Method Time Signature Bone Culture Rare Coagulase negative Staphylococcus species [place] Susceptibilities previously reported [facility] Gram Stain No Neutrophils seen. [place] No microorganisms seen. [facility] O[facility] () [facility] Organism Coagulase negative [place] Staphylococcus [place] species () [facility] Specimen Anatomical Collection Method Collection Time Receive d Time (Source) Location / / Volume Laterality Bone TOE STRUCTURE / 11/23/2021 1:06 PM 2021 2:38 Unknown EDT PM EDT Comment: First right metatarsal resectio n #2 Resulting Agency Comment Spec In Lab Jarad Flores MD MICROBIOLOGY - GENERAL ORDER SILAS Performing Organization Address City/[facility]/[place] [address] Anaerobic Culture (11/23/2021 1:06 PM EDT) [facility] Method Time Signature Anaerobic No anaerobic [place] Culture organisms [facility] LABORATORY Specimen Anatomical Collection Method Collection Time Receive d Time (Source) Location / / Volume Laterality Bone TOE STRUCTURE / 11/23/2021 1:06 PM 2021 2:37 Unknown EDT PM EDT Comment: First right metatarsal resectio n #1 Resulting Agency Comment Spec In Lab Jarad Flores MD MICROBIOLOGY - GENERAL ORDER SILAS Performing Organization Address City/State/ZIP [place] [address] (ABNORMAL) Bone Culture (11/23/2021 1:06 PM EDT) Component Value Ref Test Analysis Performed At [facility] Method Time Signature Bone Culture Few Coagulase negative Staphylococcus species : two mo rphologies [place] Rare Corynebacterium species H [facility] () [facility] Gram Stain No Neutrophils seen. [place] No microorganisms seen. [facility] O[facility] () [facility] Organism Coagulase negative [place] Staphylococcus [place] species () [facility] Organism Coagulase negative [place] Staphylococcus [place] species () [facility] Organism Corynebacterium [place] species (A) [facility] Specimen Anatomical Collection Method Collection Time [...] Comment: Gentamicin is not a ppropriate for [place]-therapy. Coagulase negative staphylococcus Levofloxacin MICROSCAN METH OD [...] Comment: Gentamicin is not a ppropriate for [place]-therapy. Coagulase negative Levofloxacin MICROSCAN METHOD Sensitive staphylococcus [...] - GENERAL ORDER SILAS Performing Organization Address City/[facility]/ZIP Code Phon e Number [address] Phosphorus (11/22/2021 6:07 PM EDT) athologist Signature Phosphorus 2.9 2.5 - 4.5 [facility] mg/dL [facility] Specimen Anatomical Collection Method Collection Time Receive d Time (Source) Location / / Volume Laterality Blood 11/22/2021 6:07 PM 2 6:14 EDT PM EDT Resulting Agency Comment Spec In Lab Afshin Rogers MD CHEMISTRY ORDERABLES Performing Organization Address City/[facility] [place] [address] (ABNORMAL) Vancomycin, trough (11/22/2021 8:29 AM EDT) athologist Signature Vanc Trough 21.4 mg/L [facility] (Critical) [facility] Comment: Called by: , Read back [...] Organization Address City/State/ZIP Code Phon e Number [address] Phosphorus (11/22/2021 8:29 AM EDT) P athologist Signature Phosphorus 3.6 2.5 - 4.5 [facility] Specimen Anatomical Collection Method Collection Time Receive d Time (Source) Location / / Volume Laterality Blood 11/22/2021 8:29 AM 2 9:09 EDT AM EDT Resulting Agency Comment Spec In Lab Afshin Rogers MD CHEMISTRY ORDERABLES Performing Organization Address City/[facility]/[place] [address] Phosphorus (11/21/2021 6:46 PM EDT) P athologist Signature Phosphorus 2.9 2.5 - 4.5 [facility] Specimen Anatomical Collection Method Collection Time Receive d Time (Source) Location / / Volume Laterality Blood 11/21/2021 6:46 PM 2 6:53 EDT PM EDT Resulting Agency Comment Spec In Lab Afshin Rogers MD CHEMISTRY ORDERABLES Performing Organization Address City/[facility]/ZIP Code Phon e Number [address] (ABNORMAL) Differential, Automated (11/21/2021 8:38 AM EDT) P athologist Signature Neutrophils % 70.4 % [facility] Neutr Abs (ANC) 5.79 1.70 - [facility] 6.10 [facility] x10(3)/[facility] LABORATORY Lymphocytes % 12.6 % [facility] Lymphocytes Abs 1.0 0.9 - 3.2 [facility] x10(3)/[facility] LABORATORY Monocytes % 11.2 % [facility] Monocyte Abs 0.9 0.3 - 0.9 [facility] x10(3)/[facility] LABORATORY Eosinophils % 4.6 % [facility] Eosinophils Abs 0.4 0.0 - 0.4 [facility] x10(3)/[facility] LABORATORY Basophils % 0.6 % [facility] Basophils Abs 0.0 0.0 - 0.1 [facility] x10(3)/[facility] LABORATORY Immature Gran % 0.60 % [facility] Comment: Immature granulocytes(IG's)percentage an d absolute count will include metamyelocytes, myelocytes, and promyelo cytes. Blood smears from CBCs yielding IG's will be scanned manually for concor dance. If this scan disagrees with the automated IG or if promyelocytes are not ed, a manual differential will be performed. Shannan Gran Abs 0.05 (H) 0.00 - 0.04 x10(3)/[facility] LABORATORY Specimen Anatomical Collection Method Collection Time Receive d Time (Source) Location / / Volume Laterality Blood 11/21/2021 8:38 AM 8:51 EDT AM EDT Resulting Agency Comment Spec In Lab Valentina Montoya MD HEMATOLOGY ORDERABLES Performing Organization Address City/State/[place] [address] (ABNORMAL) Hemogram (11/21/2021 8:38 AM EDT) Analysis Performed At Patho logist Time Signature WBC 8.2 4.0 - 9.5 [facility] x10(3)/[facility] LABORATORY RBC 4.13 (L) 4.58 - [facility] x10(6)/[facility] LABORATORY Hemoglobin 13.2 (L) 13.7 - [facility] g/dL [facility] LABORATORY Hematocrit 38.9 (L) 40.5 - [facility] 48.5 % [facility] LAB[facility]ATORY MCV 94.2 (H) 82.9 - [facility] LAB[facility] MCH 32.0 27.5 - [facility] 32.1 pg [facility]ORY MCHC 33.9 32.0 - [facility] 35.7 g/dL [facility] LABORATORY Platelets 285 145 - 357 [facility] x10(3)/[facility] LABORATORY RDWSD 48.8 (H) 36.0 - [place]ISA HERNÁNDEZ 45.0 [facility] LABORATORY RDWCV 14.2 (H) 11.4 - [place] HERNÁNDEZ 13.8 % [facility] LABORATORY MPV 8.9 7.6 - 12.9 [facility] LABORATORY nRBC % Auto 0.0 % [facility] LABORATORY nRBC Abs Auto 0.000 0.000 - [place] HERNÁNDEZ 0.000 [facility] x10(3)/[facility] LABORATORY Specimen Anatomical Collection Method Collection Time Receive d Time (Source) Location / / Volume Laterality Blood 11/21/2021 8:38 AM 8:51 EDT AM EDT Resulting Agency Comment Spec In Lab Valentina Montoya MD HEMATOLOGY ORDERABLES Performing Organization Address City/[facility] [place] [address] Hepatic Function Panel (11/21/2021 8:38 AM EDT) P athologist Signature Total Protein 6.5 6.1 - 8.0 [place] [facility] g/dL [facility] LABORATORY Albumin 3.2 3.2 - 5.2 [facility] g/dL [facility] LABORATORY AST 13 0 - 39 [place] [facility] unit/L [facility] LABOR[facility] ALT 10 0 - 55 [place] [facility] unit/L [facility] LABORATORY Alk Phos 76 40 - 130 [place] unit/L [facility] LABOR[facility]ORY Total 0.4 0.2 - 1.3 [place] Bilirubin mg/dL [facility] LABORATORY Bili, Direct 0.1 0.0 - 0.3 [place] [facility] mg/dL [facility] LABORATORY Specimen Anatomical Collection Method Collection Time Receive d Time (Source) Location / / Volume Laterality Blood 11/21/2021 8:38 AM 2 8:52 EDT AM EDT Resulting Agency Comment Spec In Lab Sommer Bains APRN CHEMISTRY ORDERABLES Performing Organization Address City/[facility]/ZIP Code Phon e Number [place] [phone] HOSP[address] LAB[address]ORY [address] Phosphorus (11/21/2021 8:38 AM EDT) athologist Signature Phosphorus 3.5 2.5 - 4.5 [facility] mg/dL [facility] LABORATORY Specimen Anatomical Collection Method Collection Time Receive d Time (Source) Location / / Volume Laterality Blood 11/21/2021 8:38 AM 8:52 EDT AM EDT Resulting Agency Comment Spec In Lab Afshin Rogers MD CHEMISTRY ORDERABLES Performing Organization Address City/State/ZIP Code Phon e Number [place] [phone] [facility] LABORATORY Drive (ABNORMAL) Basic Metabolic Panel (non-fasting) (11/21/2021 8:38 AM EDT) athologist Signature Glucose Lvl 89 65 - 199 [facility] mg/dL [facility] LABORATORY Comment: Diabetes: >=200 mg/dL plus symp toms BUN 6 (L) 10 - 20 mg/dL [facility] LABORATORY Creatinine 0.93 0.80 - 1.50 mg/dL [facility] LABORATORY Sodium 141 135 - 145 [...] estions. Chloride 104 98 - 107 mmol/L [facility] LABORATORY CO2 25 22 - 31 mmol/L [facility] LABOR[facility]ORY Anion Gap 12 5 - 15 mmol/L [facility] LABORATORY Calcium 8.8 8.5 - 10.5 mg/dL [facility] LABORATORY Estimated GFR 89 >=60 mL/min/1.73 m?? [facility] LABOR[facility]ORY Comment: This patient's estimated GFR [...] Organization Address City/State/[place] [address] Phosphorus (11/20/2021 6:22 PM EDT) athologist Signature Phosphorus 2.8 2.5 - 4.5 [facility] mg/dL [facility] LABORATORY Specimen Anatomical Collection Method Collection Time Receive d Time (Source) Location / / Volume Laterality Blood 11/20/2021 6:22 PM 2 6:31 EDT PM EDT Resulting Agency Comment Spec In Lab Afshin Rogers MD CHEMISTRY ORDERABLES Performing Organization Address City/State/[place] [address] EKG 12 Lead (11/20/2021 12:47 PM EDT) Component Value Ref Range Test Analysis Performed Pathologis t Method Time At Signature Ventricular rate 98 BPM MUSE SYSTEM Atrial Rate 98 BPM MUSE SYSTEM P-R Interval 160 ms MUSE SYSTEM QRS Duration 82 ms MUSE SYSTEM Q-T Interval 406 ms MUSE SYSTEM QTC Calculated 518 ms MUSE SYSTEM (Bezet) Calculated P Harrison 60 degrees MUSE SYSTEM Calculated R Harrison 7 degrees MUSE SYSTEM Calculated T Harrison 24 degrees MUSE SYSTEM INTERPRETATION Normal sinus [...] Bains APRN ECG ORDERABLES Performing Organization Address City/[facility]/ZIP Code Phon e Number MUSE SYSTEM Vancomycin, trough (11/20/2021 8:48 AM EDT) P athologist Signature Vanc Trough 18.8 mg/L [facility] LABORATORY Comment: Therapeutic range for complicated [...] Montoya MD CHEMISTRY ORDERABLES Performing Organization Address City/[facility] [place] [address] Phosphorus (11/20/2021 8:48 AM EDT) athologist Signature Phosphorus 2.7 2.5 - 4.5 [facility] mg/dL [facility] LABORATORY Specimen Anatomical Collection Method Collection Time Receive d Time (Source) Location / / Volume Laterality Blood 11/20/2021 8:48 AM 2 9:15 EDT AM EDT Resulting Agency Comment Spec In Lab Afshin Rogers MD CHEMISTRY ORDERABLES Performing Organization Address City/[facility]/[place] [address] (ABNORMAL) Differential, Automated (11/20/2021 4:59 AM EDT) Patholo gist Method Time Signature Neutrophils % 78.8 % [facility] LABORATORY Neutr Abs (ANC) 8.46 (H) 1.70 - [facility] 6.10 [facility] x10(3)/[facility] LABORATORY Lymphocytes % 8.6 % [facility] LABORATORY Lymphocytes Abs 0.9 0.9 - 3.2 [facility] x10(3)/[facility] LABORATORY Monocytes % 7.6 % [facility] LABORATORY Monocyte Abs 0.8 0.3 - 0.9 [facility] x10(3)/[facility] LABORATORY Eosinophils % 3.9 % [facility]ORATORY Eosinophils Abs 0.4 0.0 - 0.4 [facility] x10(3)/[facility] LABORATORY Basophils % 0.6 % [facility]ORATORY Basophils Abs 0.1 0.0 - 0.1 [facility] x10(3)/[facility] LABORATORY Immature Gran % 0.50 % [facility] LABORATORY Comment: Immature granulocytes(IG's)percentage an d absolute count will include metamyelocytes, myelocytes, and promyelo cytes. Blood smears from CBCs yielding IG's will be scanned manually for concor dance. If this scan disagrees with the automated IG or if promyelocytes are not ed, a manual differential will be performed. Shannan Gran Abs 0.05 (H) 0.00 - 0.04 x10(3)/[facility] LABORATORY Specimen Anatomical Collection Method Collection Time Receive d Time (Source) Location / / Volume Laterality Blood 11/20/2021 4:59 AM 5:23 EDT AM EDT Resulting Agency Comment Spec In Lab Valentina Montoya MD HEMATOLOGY ORDERABLES Performing Organization Address City/State/[place] [address] (ABNORMAL) Hemogram (11/20/2021 4:59 AM EDT) Analysis Performed At [facility] logist Time Signature WBC 10.7 (H) 4.0 - 9.5 [facility] x10(3)/[facility] LABORATORY RBC 4.10 (L) 4.58 - [facility] 5.54 [facility] x10(6)/[facility] LABORATORY Hemoglobin 13.5 (L) 13.7 - [facility] 16.5 g/dL [facility] LABORATORY Hematocrit 40.6 40.5 - [facility] 48.5 % [facility] LABORATORY MCV 99.0 (H) 82.9 - [facility] 93[facility]1 [facility] LABORATORY MCH 32.9 (H) 27.5 - [facility] 32.1 pg [facility] LABORATORY MCHC 33.3 32.0 - [facility] 35.7 g/dL [facility] LABORATORY Platelets 216 145 - 357 [facility] x10(3)/[facility] LABORATORY RDWSD 50.1 (H) 36.0 - [facility] 45.0 [facility] LABORATORY RDWCV 13.8 11.4 - [facility] 13.8 % [facility] LABORATORY MPV 10.2 7.6 - 12.9 [facility] LABORATORY nRBC % Auto 0.0 % [facility]OR[facility]ORY nRBC Abs Auto 0.000 0.000 - [facility] 0.000 [facility] x10(3)/[facility] LABORATORY Specimen Anatomical Collection Method Collection Time Receive d Time (Source) Location / / Volume Laterality Blood 11/20/2021 4:59 AM 5:23 EDT AM EDT Resulting Agency Comment Spec In Lab Valentina Montoya MD HEMATOLOGY ORDERABLES Performing Organization Address City/State/[place] [address] (ABNORMAL) Basic Metabolic Panel (non-fasting) (11/20/2021 4:59 AM EDT) P athologist Signature Glucose Lvl 69 65 - 199 [facility] mg/dL [facility] LABORATORY Comment: Diabetes: >=200 mg/dL plus symp toms BUN 8 (L) 10 - 20 mg/dL [facility] LABORATORY Creatinine 0.80 0.80 - 1.50 mg/dL [facility] LABORATORY Sodium 134 (L) 135 - 145 mmol/L [facility] LABORATORY Potassium Not Perf 3.5 - 5.0 [facility] LABORATORY Comment: Unable to quantitate due [...] Chloride 96 (L) 98 - 107 mmol/L [facility] LABORATORY CO2 27 22 - 31 mmol/L [facility]ORATORY Anion Gap 11 5 - 15 mmol/L [facility] LABORATORY Calcium 9.1 8.5 - 10.5 mg/dL [facility] LABORATORY Estimated GFR 96 >=60 mL/min/1.73 m?? [facility] Comment: This patient's estimated GFR [...] Organization Address City/State/[place] [address] (ABNORMAL) Differential, Automated (11/19/2021 5:56 AM EDT) [facility] gist Method Time Signature Neutrophils % 78.0 % [facility] LABORATORY Neutr Abs (ANC) 10.20 (H) 1.70 - [facility] 6.10 [facility] x10(3)/[facility] LABORATORY Lymphocytes % 10.6 % [facility] LABORATORY Lymphocytes Abs 1.4 0.9 - 3.2 [facility] x10(3)/[facility] LABORATORY Monocytes % 8.0 % [facility] LABORATORY Monocyte Abs 1.0 (H) 0.3 - 0.9 [facility] x10(3)/[facility] LABORATORY Eosinophils % 2.4 % [facility]ORY Eosinophils Abs 0.3 0.0 - 0.4 [facility] x10(3)/[facility] LABORATORY Basophils % 0.5 % [facility] Basophils Abs 0.1 0.0 - 0.1 [facility] x10(3)/[facility] LABORATORY Immature Gran % 0.50 % [facility]ORATORY Comment: Immature granulocytes(IG's)percentage an d absolute count will include metamyelocytes, myelocytes, and promyelo cytes. Blood smears from CBCs yielding IG's will be scanned manually for concor dance. If this scan disagrees with the automated IG or if promyelocytes are not ed, a manual differential will be performed. Shannan Gran Abs 0.06 (H) 0.00 - 0.04 x10(3)/[facility] LABORATORY Specimen Anatomical Collection Method Collection Time Receive d Time (Source) Location / / Volume Laterality Blood 11/19/2021 5:56 AM 6:16 EDT AM EDT Resulting Agency Comment Spec In Lab Valentina Montoya MD HEMATOLOGY ORDERABLES Performing Organization Address City/State/[place] [address] (ABNORMAL) Hemogram (11/19/2021 5:56 AM EDT) Analysis Performed At Patho logist Time Signature WBC 13.1 (H) 4.0 - 9.5 [facility] x10(3)/[facility] LABORATORY RBC 3.98 (L) 4.58 - [place] HERNÁNDEZ 5.54 [facility] x10(6)/[facility] LABORATORY Hemoglobin 12.7 (L) 13.7 - [place] 16.5 g/dL [facility] LABORATORY Hematocrit 39.4 (L) 40.5 - [place] HERNÁNDEZ 48.5 % [facility] LABORATORY MCV 99.0 (H) 82.9 - [facility] 93.1 [facility] LABORATORY MCH 31.9 27.5 - [place] [facility] 32.1 pg [facility] LABORATORY MCHC 32.2 32.0 - [place] HERNÁNDEZ 35.7 g/dL [facility] LABORATORY Platelets 217 145 - 357 [facility] x10(3)/[facility] LABORATORY RDWSD 51.4 (H) 36.0 - [place] 45.0 [facility] LABORATORY RDWCV 14.0 (H) 11.4 - [facility] 13.8 % [facility] LABORATORY MPV 9.4 7.6 - 12.9 [place] HERNÁNDEZ [facility] LABORATORY nRBC % Auto 0.0 % [facility]OR[facility] nRBC Abs Auto 0.000 0.000 - [place] CHASEEDGAR 0.000 [facility] x10(3)/[facility] LABORATORY Specimen Anatomical Collection Method Collection Time Receive d Time (Source) Location / / Volume Laterality Blood 11/19/2021 5:56 AM 2 6:16 EDT AM EDT Resulting Agency Comment Spec In Lab Valentina Montoya MD HEMATOLOGY ORDERABLES Performing Organization Address City/State/[place] [address] (ABNORMAL) Sedimentation rate (11/19/2021 5:56 AM EDT) P athologist Signature Sed Rate 104 (H) 2 - 37 [place] mm/hr [facility] LABORATORY Comment: Effective April 21, 2019 new [...] Organization Address City/State/[place] [address] (ABNORMAL) Basic Metabolic Panel (non-fasting) (11/19/2021 5:56 AM EDT) P athologist Signature Glucose Lvl 87 65 - 199 [facility] mg/dL [facility] LAB[facility]ATORY Comment: Diabetes: >=200 mg/dL plus symp toms BUN 12 10 - 20 mg/dL [facility] LABORATORY Creatinine 0.98 0.80 - 1.50 mg/dL [facility] LABORATORY Sodium 139 135 - 145 [...] estions. Chloride 98 98 - 107 mmol/L [facility] CO2 34 (H) 22 - 31 mmol/L [facility] Anion Gap 7 5 - 15 mmol/L [facility]ORY Calcium 9.0 8.5 - 10.5 mg/dL [facility] LABORATORY Estimated GFR 84 >=60 mL/min/1.73 m?? [facility] Comment: This patient's estimated GFR [...] Organization Address City/State/[place] [address] Surgical Pathology Report (11/18/2021 8:56 PM EDT) Component Value Ref Test Analysis Performed At [facility] gist Range Method Time Signature Surgical [id number] ? Location: 1WST; 0110; B [facility] Report The signing pathologist [...] MD Verified: ??11/28/2021 12:13 ??Pathologist Performed at: ??-[facility] [place], [place], [place] SPECIMEN(S) SUBMITTED A - ??Right great [...] for decalcification: A1-A5. Touch prep(s) are prepared. Dope Worker sections in 6 cassettes as follows: ?A1-A4: [...] MD PATHOLOGY/CYTOLOGY ORDERABLE S Performing Organization Address City/[facility]/[place] [address] Specimen to Pathology (11/18/2021 8:56 PM EDT) Specimen Anatomical Collection Method Collection Time Receive d Time (Source) Location / / Volume Laterality AP Specimen 11/18/2021 8:56 PM 8:56 EDT PM EDT Narrative [facility]Y - 11/18/2021 8:56 PM EDT Specimen requisition ordered. ??Separate Pathology report to follow Valentina Montoya MD PATHOLOGY/CYTOLOGY ORDERABLE S Performing Organization Address City/[facility]/[place] [address] (ABNORMAL) Anaerobic Culture (11/18/2021 8:52 PM EDT) [facility] gist Method Time Signature Anaerobic Rare [facility] Culture Bacteroides [facility] species (A) [facility] LABORATORY Organism Bacteroides [place] species (A) [facility] LABORATORY Specimen Anatomical Collection Method Collection Time Receive d Time (Source) Location / / Volume Laterality Stump STRUCTURE OF RIGHT 11/18/2021 8:52 PM 02/2022 FOOT / Unknown EDT 10:42 PM EDT Comment: Cut end of RIGHT metatarsal bon e. Resulting Agency Comment Spec In Lab Sammy Baker MD MICROBIOLOGY - GENERAL ORDER SILAS Performing Organization Address City/[facility]/ZIP Code Phon e Number [place] [address] Abscess/Wound Aspirate Culture (11/18/2021 8:52 PM EDT) Component Value Ref Test Analysis Performed At [facility] Range Method Time Signature Abscess/Wound No growth [place] Aspirate [place] Culture [facility] LABORATORY Gram Stain Few Neutrophils seen [place]ISA No microorganisms seen. [facility] OCK Results called to and read back by Sd Cedillo ??11/18/21 23:17:2 4 [facility] LABORATORY Specimen Anatomical Collection Method Collection Time Receive d Time (Source) Location / / Volume Laterality Stump STRUCTURE OF RIGHT 11/18/2021 8:52 PM 02/2022 FOOT / Unknown EDT 10:42 PM EDT Comment: Cut end of RIGHT metatarsal bon e. Resulting Agency Comment Spec In Lab Sammy Baker MD MICROBIOLOGY - GENERAL ORDER SILAS Performing Organization Address City/[facility]/ZIP [place] [address] (ABNORMAL) Anaerobic Culture (11/18/2021 8:52 PM EDT) [facility] Method Time Signature Anaerobic Many [place] Culture Bacteroides [place] species () [facility]ORATORY Organism Bacteroides [place]ISA species (A) [facility] LABORATORY Specimen Anatomical Collection Method Collection Time Receive d Time (Source) Location / / Volume Laterality Abscess TOE STRUCTURE / 11/18/2021 8:52 PM 2021 Unknown EDT 10:41 PM EDT Comment: #2 RIGHT great toe. Resulting Agency Comment Spec In Lab Sammy Baker MD MICROBIOLOGY - GENERAL ORDER SILAS Performing Organization Address City/[facility]/ZIP Code Phon e Number [place] [address] (ABNORMAL) Abscess/Wound Aspirate Culture (11/18/2021 8:52 PM EDT) Component Value Ref Test Analysis Performed At [facility] Range Method Time Signature Abscess/Wound Many Proteus mirabilis MAR Y Aspirate Many Streptococcus milleri, anginosis group [facility] Culture (A[facility] Gram Stain Many Neutrophils seen [facility] Many Gram Positive Cocci seen [place] Many Gram Negative Rods seen [facility] Results called to and read back by Sd Cedillo ??11/18/21 23:16:5 0 [facility] (A) LABORATORY Organism Proteus mirabilis [facility] (A) [facility] LABORATORY Organism Streptococcus [place] millercharlie, [place] anginosis group [facility] () [facility] LABORATORY Organism Gram Positive [place] Cocci (A) [facility] LABORATORY Organism Gram Negative [place] Rods (A) [facility] LABORATORY Specimen Anatomical Collection Method Collection Time [...] Organization Address City/State/[place] [address] (ABNORMAL) Anaerobic Culture (11/18/2021 8:52 PM EDT) [facility] Signature Anaerobic Many [place] Culture Bacteroides [place] species (A) [facility] LABORATORY Organism Bacteroides [place] species (A) [facility] LABORATORY Specimen Anatomical Collection Method Collection Time Receive d Time (Source) Location / / Volume Laterality Abscess TOE STRUCTURE / 11/18/2021 8:52 PM 2021 Unknown EDT 10:43 PM EDT Comment: #1 RIGHT great toe. Resulting Agency Comment Spec In Lab Sammy Baker MD MICROBIOLOGY - GENERAL ORDER SILAS Performing Organization Address City/State/[place] [address] (ABNORMAL) Abscess/Wound Aspirate Culture (11/18/2021 8:52 PM EDT) Component Value Ref Test Analysis Performed At [facility] [place] Range Method Time Signature Abscess/Wound Many Proteus mirabilis MAR Y Aspirate Rare Staphylococcus aureus HIT [facility] Culture Many Streptococcus milleri, [facility] Gram Stain Many Neutrophils seen [facility] Many Gram Positive Cocci seen [place] Many Gram Negative Rods seen [facility] Results called to and read back by Sd Cedillo ??11/18/21 23:16:1 6 [facility] Organism Staphylococcus [place] aureus (A) [facility] LABORATORY Organism Proteus mirabilis [facility] (A) [facility] LABORATORY Organism Streptococcus [place] milleri, [facility] LABORATORY Organism Gram Positive [facility] Cocci (A) [facility] LABORATORY Organism Gram Negative [facility] Rods (A) [facility] LABORATORY Specimen Anatomical Collection Method Collection Time [...] Comment: Gentamicin is not a ppropriate for [place]-therapy. Staphylococcus aureus Oxacillin VITEK 2 METHOD Sensitive [...] Organization Address City/State/[place] [address] Lower Extremity w [...] who have questions please contact the health chiropractic care that requested your imaging first. ? Electronically signed by: Wicho Michael MD, [facility] [place] [facility] ([phone]), at 11/19/2021 2:58 AM Narrative 11/19/2021 2:58 [...] ho have questions please contact the health chiropractic care that requested your imaging first. Electronically signed by: Wicho Michael MD, [facility] [place] [facility] ([phone]), at 11/19/2021 2:58 AM Lorrie Lundberg MD IMG CT ORDERABLES Hepatic Function Panel (11/18/2021 5:25 PM EDT) Analysis Performed At Patho logist Time Signature Total Protein 6.6 6.1 - 8.0 [facility] g/dL [facility] LABORATORY Albumin 3.3 3.2 - 5.2 [facility] AST Not Perf 0 - 39 [facility] Comment: Unable to quantitate due to sample hemol ysis. ??Sample redraw suggested. Called by: dahlia, Read back by: rukhsana ornelas, Date/Time:11/18/21 20:09. ALT 8 0 - 55 unit/L [facility]ATORY Alk Phos 91 40 - 130 unit/L [facility] Total Bilirubin 0.4 0.2 - 1.3 mg/dL [facility] LABORATORY Bili, Direct Not Perf 0.0 - 0.3 [facility] LABORATORY Comment: Unable to quantitate due [...] Organization Address City/State/[place] [address] (ABNORMAL) Basic Metabolic Panel (non-fasting) (11/18/2021 5:25 PM EDT) P athologist Signature Glucose Lvl 113 65 - 199 [facility] mg/dL [facility] Comment: Diabetes: >=200 mg/dL plus symp toms BUN 13 10 - 20 mg/dL [facility] Creatinine 0.93 0.80 - 1.50 mg/dL [facility] Sodium 136 135 - 145 [...] Chloride 96 (L) 98 - 107 mmol/L [facility] CO2 32 (H) 22 - 31 mmol/L [facility] Anion Gap 8 5 - 15 mmol/L [facility] Calcium 9.0 8.5 - 10.5 mg/dL [facility] Estimated GFR 89 >=60 mL/min/1.73 m?? [facility] Comment: This patient's estimated GFR [...] Organization Address City/State/[place] [address] (ABNORMAL) CRP, acute inflammation (11/18/2021 5:25 PM EDT) athologist Signature CRP 265.6 (H) <=4.9 mg/L [facility] Specimen Anatomical Collection Method Collection Time Receive d Time (Source) Location / / Volume Laterality Blood 11/18/2021 5:25 PM 5:36 EDT PM EDT Resulting Agency Comment Spec In Lab Lorrie Lundberg MD CHEMISTRY ORDERABLES Performing Organization Address City/State/[place] [address] documented in this encounter [...] 45 mg, Oral, DAILY, First dose on 11/29/21 at 1030, Until Discontinued, Liquid methadone [...] Claudia Long RN)1206 (Given - Provider: Malinda Díaz RN)1753 (Given - Provider: Malinda Díaz RN) 0013 (Given - Provider: Louisa Cardenas RN)0628 (Given - Provider: Louisa Cardenas RN)1133 (Given - Provider: Bernice Coronel, VINCENT) 650 mg, Oral, EVERY 6 HOURS SCHEDULED, F irst dose (after last modification) on Fri11/27/21 at 1200, Until Discontinued, Administer for temperature greater than or equal to 38.2 degrees celsius. Maximum daily dose of acetaminophen from all [facility] rces not to exceed 4,000 mg. When [...] refused) 0900 (Not Given - Provider: Bernice turner, VINCENT - Reason: Patient/family refused) Topical (Top), 2 [...] 1428 (New Bag - Provider: Bernice Coronel, RN)1458 (Stopped - Provider: Bernice Coronel, VINCENT) 700 [...] Díaz RN) 0929 (Given - Provider: Bernice Cornoel, VINCENT) 80 mg, Oral, DAILY, First dose [...] Reason: Patient/family refused)1206 (Given - Provider: Malinda Díaz, VINCENT)1754 (Given - Provider: Malinda Díaz RN) 0600 [...] RN) 0928 (Gi mita - Provider: Bernice Coronel [...] (COMPLETED ) 1400 (Given - Provider: Malinda Díaz RN) 30 mg, Oral, ONCE, 1 dose, [...] 09 (Patch Removed - Provider: Bernice Coronel, VINCENT) [...] location) verified - Provider: Louisa Cardenas RN) 09 (Patch (dose and location) verified - Provider: Bernice Coronel RN) Transdermal, 2 TIMES DAILY, First dose o n 11/19/21 at 0800, Until Discontinued, Verify nicotine 21 mg/24 hr patch pantoprazole EC (Protonix) tablet 40 mg 08 (Given - Provider: Amy Yates LPN)2058 (Given - Provider: Bridgette Cho RN) 08 (Given - Provider: Malinda Díaz, VINCENT)2206 (Given - Provider: Louisa Cardenas RN) 09 (Given - Provider: Bernice Coronel, VINCENT) 40 mg, Oral, 2 TIMES DAILY, First dose o n 11/19/21 at 0000, Until Discontinued, DO NOT CRUSH OR OPEN, Routine potassium chloride 10 mEq in sterile water 100 mL infusion ( COMPLETED) 0440 (New Bag - Provider: Claudia Long, VINCENT)0617 (Stopped - Provider: Claudia Long RN)0618 (New [...] abxs)2101 (Given - Provider: Bridgette Cho RN) 821 (Given - Provider: Malinda Díaz RN)2208 (Given [...] 1607 ( Given - Provider: Malinda Díaz, VINCENT) 25 mg, Oral, DAILY PRN, Starting on [...] 11/29/21 at 2005, Pain, for mild pain (1-3)
[...] documented as of this encounter Care Teams Optical Mechanic Apprentice Relationship Specialty Start Date End Date Brian Fall APRN PCP - General Internal Medicine 04/07/19 [address] [place] [address] documented as of this encounter
--- OUTSIDE RECORDS SUMMARY | 2021-11-30 08:19 | XMS_ITS | Encounter Summary ---
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 River Stevenson, River Stevenson MD MD [facility] HERNANDEZ INFECTIOUS DISEASE INFECTIOUS DISEASE [place], [place] [id number] [place] [phone] Fax: Referral ID Status Reason Start Date Expiration Date Visits V isits Requested Authorized [id number] Closed Assume 03/13/2020 03/13/2021 1 1 Subset of Care Encounter Details Date Type Department Care Team Description 04/03/2020 TH Visit Infectious Disease [place] Maribeth Pain of left calf; (TeleHealth) at [facility] Jarquin Osteomyelitis of fourth toe of left foot ; [facility] Inf ection due to species of Streptococcus milleri group; Cass Hernandez 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 INFECTIOUS DISEASE CLINIC - OUTPATIENT FOLLOW UP - Telephone call Chief Complaint: Osteomyelitis +/- hardware infection Microorganism(s): Anaerobe(s) and Streptococcus sp. Pasteurella multocida Antimicrobial Therapy: Ceftriaxone 2 gm IV daily plus Metronidazole 500 mg po tid History of Present Illness: Mahin Ramos is a 64 y.o. male with a history of bilateral foot ulcers, hepatitis C s/p Epclusa 2016, cirrhosis, peripheral neuropathy, COPD, tobacco use, and prior osteomyelitis of the left 5th toe 01/2019 s/p amputation, who presented to ED from [facility],03/09/2020, for concerns for wo rsening foot ulcer and possible osteomyelitis. Visit on 03/07/2020 to Wound Care Clinic was concerning for worsening of wound, culture done and grew highly sensitive MSSA, Beta Hemolytic Streptococcus not group A or B, as well as B. fragilis and Bacteroides sp. on anaerobic culture. On visit with Orthopaedics 03/09/2020, his foot was noted to be increasingly erythematous and he was referred to ED for further imaging and IV antibiotics. MRI obtained 03/09/2020 was significant for 5th MTP jt dorsally subluxed. 4th metatarsal head ulceration noted to extend to bone as well as a 2X1.5x1 cm gas containing fluid collection in dorsal aspect of 4th MTP jt with open communication to the MTP jt. Patient hospitalized at 03/09 - 03/14/2020 and underwent 4th ray transmetatarsal amputation 03/10/2020. Cefazolin was continued with the addition of Metronidazole per ID recommendation. Bone cultures grew polymicrobial including Bacteroides sp, Pasturella sp, Streptococcus milleri and CoNS. CoNS was not thought to be a real pathogen in this case given that it only grew in broth culture. ID recommended to change Cefazolin to Ceftriaxone to cover S. milleri and Pasteurella and continue Metronidazole po for Bacteroides. Patient underwent PICC line placement ANNA 03/14/2020 and discharged to home via OPAT program for an anticipated 6 week course of IV antimicrobial therapy. Anticipated end date is 04/21/2020. Patient presents today, via telephone, for his interim visit to evaluate his progress and response to long-term antimicrobial therapy. ?? ROS: Patient states he is feeling well. He denies F/C, night sweats, headache, or dizziness. No chest pain or palpitations. Denies shortness of breath, cough. He has h/o COPD and has multiple MDIs ordered which he states he rarely uses. Denies abdominal pain, N/V/D, or constipation. Denies rash or pruritis. He reports that he has a good appetite and he is taking in plenty of protein-rich foods to enhance wound healing. Patient states that his L foot amputation site is healing well. Denies redness, swelling, drainage from site. He also states that his PICC line ANNA is working well, no trouble with infusions and VNA nurse is changing the dressing weekly. He reports the PICC site is non-tender, no redness, swelling, or drainage. When asked about how his blood sugars are running, patient denies having diabetes and states his blood sugars have always been fine which is interesting as his PMH indicates T2DM and diabetic foot ulcers. Patient states that he has peripheral neuropathy and foot ulcers but not T2DM. A review of his fasting blood sugars during recent hospitalization as well as non-fasting outpatient blood sugars reveal results all WNL. Patient reports that he has had some pain and stiffness L calf. He denies redness, warmth, lump or tender area. He notes that it is bigger than his R calf but that is not new. Reviewed s/s DVT with patient and and advised them to go to ER if patient experiences any red flag symptoms: increased pain, redness, hard lump in calf, SOB, chest pain, change in mental status, severe headache, etc. Medications: Current Outpatient Medications Medication Sig Dispense Refill ??? metroNIDAZOLE (FlagyL) 500 mg Tablet Take 1 tablet by mouth 3 times daily for 35 days. 90 tablet1 ??? cefTRIAXone (ROCEPHIN) 1 gram Recon Soln Inject 2,000 mg into the vein daily for 35 days. 10 mL 0 ??? gabapentin (Neurontin) 300 mg Capsule Take 2 capsules by mouth 3 times daily. 90 capsule 12 ??? lisinopriL (Prinivil;Zestril) 40 mg Tablet Take 1 tablet by mouth daily. 90 tablet 3 ??? nicotine (NICODERM CQ) 21 mg/24 hr Patch 24 hr Change 1 patch on the skin daily. 28 patch 0 ??? QUEtiapine (SEROquel) 25 mg Tablet take 1 tablet by mouth twice a day if needed ??? acetaminophen (Tylenol) 325 mg Tablet Take 650 mg every 4 hours by oral route as needed. ??? pantoprazole EC (Protonix) 40 mg Tablet, Delayed Release (E.C.) Take 40 mg by mouth 2 times daily. ??? furosemide (Lasix) 80 mg Tablet Take by mouth as needed. ??? buspirone HCl (BUSPIRONE ORAL) Take 15 mg by mouth 2 times daily. ??? citalopram (CELEXA) 20 mg Tablet Take 20 mg by mouth Daily. ??? methadone HCl (METHADONE ORAL) Take 82 mg by mouth daily. ??? SPIRIVA RESPIMAT 2.5 mcg/actuation Mist Take 1 puff by mouth as needed. ??? ipratropium-albuterol (DUONEB) 0.5 mg-3 mg(2.5 mg base)/3 mL Solution for Nebulization Take 3 mLs by nebulization every 6 hours as needed. ??? PROAIR HFA 90 mcg/actuation HFA Aerosol Inhaler Inhale 2 puffs into the lungs every 6 hours as needed. ??? meTOPROLOL succinate (TOPROL-XL) 100 mg Tablet Sustained Release 24 hr Take 1 tablet by mouth daily. 0 ??? DULERA 100-5 mcg/actuation HFA Aerosol Inhaler inhale 2 puffs by mouth prn 0 ??? multivitamin (THERAGRAN) tablet Take 1 tablet by mouth daily. Allergies: Allergies Allergen Reactions ??? Morphine Other (See Comments) STATES THAT IT DOES NOT TAKE HIS PAIN AWAY Past Medical History: Diagnosis Date ??? Cirrhosis Chronic HCV and history of alcohol use ??? COPD (chronic obstructive pulmonary disease) ??? Depression ??? GERD (gastroesophageal reflux disease) ??? Hepatitis C ??? HTN (hypertension) Physical Exam: General: Alert and oriented, pleasant and cooperative Pulmonary: Non-labored respirations. No audible wheezing Neuro: Alert and oriented to person, place, time, and situation. No facial droop. No dysarthria Psych: Normal affect Labs: 03/20/2020: WBC = 12.1, H/H = 12.6/39, Plts = 471 Na = 135, K+ = 3.6, Cl = 97, CO2 = 30, BUN = 6, creatinine = 0.88, glucose = 113 ALT/AST = 19/17, alk phos = 60 CRP = 23 Lab Results Component Value Date WBC 10.2 (H) 03/14/2020 HGB 12.9 (L) 03/14/2020 HCT 39.0 (L) 03/14/2020 MCV 93.5 (H) 03/14/2020 PLATELET 398 (H) 03/14/2020 CRP (mg/L) Date Value 03/09/2020 102.6 (H) 03/07/2020 109.5 (H) 10/25/2019 11.4 (H) CRP High Sens (mg/L) Date Value 11/14/2015 19.7 09/06/2014 8.7 Lab Results Component Value Date NA 136 03/14/2020 K 3.6 03/14/2020 CL 100 03/14/2020 CO2 27 03/14/2020 BUN 7 (L) 03/14/2020 CREATININE 0.67 (L) 03/14/2020 GLUCOSE 112 03/10/2020 GLUCFASTING 95 03/14/2020 CALCIUM 9.5 03/14/2020 ESTGFR 100 03/14/2020 Lab Results Component Value Date ALT 13 10/25/2019 AST 17 10/25/2019 GGT 33 02/03/2018 ALKPHOS 114 10/25/2019 BILITOT 0.6 10/25/2019 BILIDIR 0.1 06/13/2016 ALBUMIN 4.7 10/25/2019 ALBUMIN 4.5 10/25/2019 PROT 7.8 10/25/2019 Microbiology: Reviewed Imaging: Reviewed Assessment: From an ID standpoint, Mr. Ramos is progressing well AEB absence of s/s infection (F/C, nausea, night sweats, malaise, weight loss), healing of surgical amputation site, and down-trending CRP. WBCs slightly increased to 12.1 from 10.2 which is of unclear significance. Other lab values are stable and anemia is improving. It is concerning that patient is experiencing L calf discomfort and edema. Will add a D-dimer to this week's lab work. Have advised him not to hesitate to seek treatment at local ED if he experiences worsening of or increase in symptoms. He is currently not interested ingoing to the ED now. Plan: 1. Continue Ceftriaxone plus Metronidazole as previously ordered 2. Continue weekly CBC w/diff, CMP, and CRP 3. Please add D-dimer to this week's lab work 4. Patient advised to go to local ED if his calf discomfort increases or he develops other symptoms 5. Follow-up with Orthopaedics on 04/17/2020 as planned 6. End of therapy visit with Dr. Abel on 04/21/2020 as planned 7. Patient's ID Attending, Dr. Stevenson, apprised of above Maribeth Peguero APRN, Infectious Disease 04/03/2020 9:50 AM documented in this encounter Plan of Treatment Upcoming Encounters Date Type Specialty Care Team Description 12/11/2021 Appointment Radiology 12/11/2021 Office Visit Orthopaedics Marion Tavera APRN [facility] ORTHOPAEDIC SURG [place], [place] [address] (Wo rk) 01/15/2022 Appointment Radiology Stiven Cervantes MD [facility] Pulmonary Medici [place], [place] [address] (Wo rk) Scheduled Procedures Name [...] as of this encounter Visit Diagnoses Diagnosis Pain of left calf Pain in limb Osteomyelitis of fourth toe of left foot Infection due to species of Streptococcu s milleri group 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
--- OUTSIDE RECORDS SUMMARY | 2021-11-30 08:19 | XMS_ITS | Encounter Summary ---
:1955 Author Organization [facility] Address [address] [place] [address] Care Team Providers Name Role Phone Brian Fall APRN Primary Care Provider Encounter Details Date Type Department Care Team Description 06/07/2020 Hospital Encounter XRay at [facility] Niki Stockton Neuropathic ulcer of foot, r ight, with fat layer exposed; [address] Jenaro APRN Cellulitis, unspecified cellulitis site [facility] [address] CENTER [phone] W[facility]ENTER [place] [id number] Social History Tobacco Use Types Packs/Day Years Used Date Current Every Day Smoker Cigars, Cigarettes 1 42 Smokeless Tobacco: Never Used Alcohol Use Standard Drinks/Week Comments Yes 22 (1 standard drink = 0.6 oz pure alcoh ol) Sex Assigned at Date Recorded Not on file documented as of this encounter Medications at Time of Discharge Medication Sig Dispensed Refills Start Date End Date lisinopriL Take 1 tablet by 90 tablet 3 03/15/2020 (Prinivil;Zestril) 40 mouth daily. mg Tablet acetaminophen (Tylenol) Take 650 mg every 4 0 05/2019 325 mg Tablet hours by oral route as needed. furosemide (Lasix) 40 Take 80 mg by mouth 0 mg Tablet daily. buspirone HCl Take 30 mg by mouth 2 0 (BUSPIRONE ORAL) times daily. meTOPROLOL succinate Take 100 mg by mouth 0 07/25 (TOPROL-XL) 100 mg daily. (In addition Tablet Sustained 50mg tab, total dose: Release 24 hr 150mg daily) multivitamin Take 1 tablet by 0 08/21/2012 (THERAGRAN) tablet mouth daily. amoxicillin-clavulanate Take 1 tablet by 20 tablet 0 202008/22/2020 (Augmentin) 875-125 mg mouth 2 times daily. Tablet memantine (Namenda) 5 take 1 tablet by 0 04/11/20 20 08/22/2020 mg Tablet mouth once daily FOR 1 WEEK THEN INCRESE TO 1 TABLET TWICE DAILY THEREAFTER gabapentin (Neurontin) Take 2 capsules by 90 capsule 12 03/1408/22/2020 300 mg Capsule mouth 3 times daily. nicotine (NICODERM CQ) Change 1 patch on the 28 patch 0 11/19/2021 21 mg/24 hr Patch 24 hr skin daily. QUEtiapine (SEROquel) take 1 tablet by 0 08/09/19 20 11/18/2021 25 mg Tablet mouth twice a day if needed pantoprazole EC Take 40 mg by mouth 2 0 08/22/2020 (Protonix) 40 mg times daily. Tablet, Delayed Release (E.C.) citalopram (CELEXA) 20 Take 20 mg by mouth 0 08/22/2020 mg Tablet Daily. methadone HCl Take 90 mg by mouth 0 (METHADONE ORAL) daily. SPIRIVA RESPIMAT 2.5 Take 1 puff by mouth 0 07/2211/19/2021 mcg/actuation Mist as needed. ipratropium-albuterol Take 3 mLs by 0 08/29/2017 08/22/2020 (DUONEB) 0.5 mg-3 nebulization every 6 mg(2.5 mg base)/3 mL hours as needed. Solution for Nebulization PROAIR HFA 90 Inhale 2 puffs into 0 07/21/2017 mcg/actuation HFA the lungs every 6 Aerosol Inhaler hours as needed. DULERA 100-5 inhale 2 puffs by 0 11/07/201511/19 mcg/actuation HFA mouth prn Aerosol Inhaler documented as of this encounter Plan of Treatment Upcoming Encounters Date Type Specialty Care Team Description 12/11/2021 Appointment Radiology 12/11/2021 Office Visit Orthopaedics Marion Tavera APRN [facility] ORTHOPAEDIC SURG [place], [place] [address] (Wo rk) 01/15/2022 Appointment Radiology Stiven Cervantes MD [facility] Pulmonary Medici [place] [address] (Wo rk) Scheduled Procedures Name [...] Action Plan 9:07 AM EDT) [facility] Note: Formatting of this note might be d ifferent from the original. Patient Goal: To experience less side ef fects than his past regimen of Peg and Ribavirin Timeframe to meet goal: 3 months of ther apy documented as of this encounter Procedures Procedure Name Priority Date/Time Associated Diagnosis Comme nts XR FOOT MIN 3 VIEWS Routine 06/07/2020 5:20 PM Neuropathic ulc er of Results for this LEFT EST foot, right, with procedure are in fat layer expose d the results Cellulitis, section. unspecified cellulitis site documented in this encounter Results XR Foot Min 3 views Left (Generic) (06/07/2020 5:20 PM EST) Anatomical Region Laterality Modality Foot Left Digital Radiography Specimen (Source) Anatomical Location Collection Method / Collectio n Time Received Time / Laterality Volume Impressions 06/07/2020 6:13 PM EST No radiographic evidence of osteomyelitis. Thank you for letting us participate in the care of this patient. For questions regarding this report, please contact e number below. ? Narrative 06/07/2020 6:13 PM EST EXAMINATION: XR FOOT MIN 3 VIEWS LEFT (GENERIC) CLINICAL HISTORY: Left foot and hallux e rythema questions osteo/infection TECHNIQUE: 3 views LEFT foot COMPARISON: March 24, 2020 FINDINGS: Soft tissue calcification in the lateral left foot at the site of the fourth and fifth amputated rays may reflect heterot opic ossification. Resection margins without erosion. Hallux valgus persists. Contracture defo rmities at the first through third rays persist. Degenerative and osteopenic allen ency through the nasal sesamoid. No acute bony fracture. No erosion. Diffuse linear reduced mineralization. No soft tissue gas. Procedure Note Penny Ge MD - 06/07/2020 EXAMINATION: XR FOOT MIN 3 VIEWS LEFT (G ENERIC) CLINICAL HISTORY: Left foot and hallux e rythema questions osteo/infection TECHNIQUE: 3 views LEFT foot COMPARISON: March 24, 2020 FINDINGS: Soft tissue calcification in the lateral left foot at the site of the fourth and fifth amputated rays may reflect heterot opic ossification. Resection margins without erosion. Hallux valgus persists. Contracture defo rmities at the first through third rays persist. Degenerative and osteopenic allen ency through the nasal sesamoid. No acute bony fracture. No erosion. Diffuse linear reduced mineralization. No soft tissue gas. IMPRESSION No radiographic evidence of osteomyeliti s. Thank you for letting us participate in the care of this patient. For questions regarding this report, please contact e number below. 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
--- OUTSIDE RECORDS SUMMARY | 2021-11-30 08:19 | XMS_ITS | Encounter Summary ---
:1955 Author Organization [facility] Address [address] [facility] [place] [address] Care Team Providers Name Role Phone Brian Fall APRN Primary Care Provider Reason for Visit Reason Comments Follow Up Surgery XR-L 4th MT ray resection fo r osteo 03/10/20 (Joshua) Encounter Details Date Type Department Care Team Description 03/24/2020 Office Visit Orthopaedics at [facility] Joshua, Geovanna Najera, Neuropathic ulcer of [facility] foot, left, with fat [address] [place] [address] [facility] [phone] ORTHOPAEDIC SURGERY [place], [place] [address] Social History Tobacco Use Types [...] Sign Reading Time Taken Comments Blood Pressure 187/106 03/24/2020 9:53 AM EST Pulse 63 03/24/2020 9:53 AM EST Temperature 36.6 ??C (97.9 ??F) 03/24/2020 9:53 AM EST Respiratory Rate - - Oxygen Saturation - - Inhaled Oxygen Concentration - - Weight 90.7 kg (200 lb) 03/24/2020 9:53 AM EST Height 175.3 cm (5' 9) 03/24/2020 9:53 AM EST Body Mass Index 29.53 03/24/2020 9:53 AM EST documented in this encounter Progress Notes Geovanna Lewis MD - 03/24/2020 10:00 AM EST Mahin Ramos returns in follow-up 3 weeks s/p 5th ray amputation. He reports that he is doing reasonably well. Has been able to be moderately consistent with his weight-bearing restrictions. [facility] FollowUp 03/24/2020 Health in general Fair Quality of life Fair Physical health Fair Mental health Fair Satisfaction with social activities Fair Ability to carry out physical activities Not at all Rate of pain 4 Rate of fatigue Moderate Ability to carry out social activities Poor Bothered by emotional problems Sometimes PROMIS PHYSICAL HEALTH SCORE 32.4 PROMIS MENTAL HEALTH SCORE 36.3 Rising from bed - Putting on socks or stockings - Rising from sitting - Bending to the floor - Twisting or pivoting on your injured knee - Kneeling - Squatting - KOOS-PS Scores - Gone to ER since knee surgery No Admitted to hospital since knee surgery No Additional surgery on same knee Yes [facility] Surgeon Mark Date of surgery 03/15/2020 Reason for surgery Infection Physical Exam- In general a well developed well nourished male in no apparent distress. Examination of the foot reveals the incision is clean dry and intact. The lateral wound does appear to be a bit macerated, but is overall intact. Assessment and Plan- Mahin Ramos is a 64 y.o. male who returns in follow-up 3 weeks s/p 5th ray amputation. He reports he is doing well. Plan today is to remove sutures and apply steri-strips. He should continue heel weight bearing only until the wound is entirely healed. He will do q2-3d dressing changes using silver borderless mepilex. He will followup in 2-3 weeks. Dania Lewis MD Department of Orthopaedic Surgery 03/24/20 documented in this encounter Plan of Treatment Upcoming Encounters Date Type Specialty Care Team Description 12/11/2021 Appointment Radiology 12/11/2021 Office Visit Orthopaedics Marion Tavera APRN [facility] [address] ORTHOPAEDIC SURG [place], [place] [address] (Wo rk) 01/15/2022 Appointment Radiology Stiven Cervantes MD [facility] Pulmonary Tim [place], [place] [address] (Wo rk) Scheduled Procedures Name [...] as of this encounter Visit Diagnoses Diagnosis Neuropathic ulcer of foot, left, with fa t layer exposed documented in this encounter Care Teams Speeder Tender Relationship Specialty Start Date End Date Brian Fall APRN PCP - General Internal Medicine 04/07/[address] [place] [phone] documented as of this encounter
--- OUTSIDE RECORDS SUMMARY | 2021-11-30 08:19 | XMS_ITS | Encounter Summary ---
:1955 [place] [address] Care Team Providers Name Role Phone Brian Fall APRN Primary Care Provider Reason for Visit Reason Comments Wound Check Encounter Details Date Type Department Care Team Description 06/07/2020 Office Visit Wound Care at [facility] uropathic ulcer of foot, right, with fat layer exposed; [facility] LISA Cellulitis, unspecified cellulitis site; [facility] Surgical wound breakdown, nunez bsequent encounter [facility] [place] W[place] [phone] Social History Tobacco Use Types Packs/Day Years Used Date Current Every Day Smoker Cigars, Cigarettes 1 42 Smokeless Tobacco: Never Used Alcohol Use Standard Drinks/Week Comments Yes 22 (1 standard drink = 0.6 oz pure alcoh ol) Sex Assigned at Date Recorded Not on file documented as of this encounter Last Filed Vital Signs Vital Sign Reading Time Taken Comments Blood Pressure 177/91 06/07/2020 3:51 PM EST Pulse 70 06/07/2020 3:51 PM EST Temperature 36.5 ??C (97.7 ??F) 06/07/2020 3:51 PM EST Respiratory Rate - - Oxygen Saturation 97% 06/07/2020 3:51 PM EST Inhaled Oxygen Concentration - - Weight - - Height - - Body Mass Index - - documented in this encounter Progress Notes Niki Stockton APRN - 06/07/2020 4:00 PM EST Images from the original note were not included. [facility] Progress Note Chief Complaint: Mahin Ramos is a 64 y.o. male returns for follow up of a neuropathic ulcer to right plantar and surgical incision of left lateral/left plantar. ?? 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 Left foot incision well healed without signs of infection. Labs look good. He also has right plantar scab with likely underlying ulcer awaiting further wound clinic evaluation. Recommend close monitoring and follow up for any changes. Will discontinue antibiotics today and remove PICC line. Advised to call with any concerns, otherwise no need for ID follow up.?? He was last seen at the [facility] by (MANJIT) on 03/09 and sent to the Emergency Department for concern overhis left foot. He is wearing a Mepilex border to the right plantar foot as recommended by inpatient wound care during his admission for the left TMA on 03/10. He has been going barefoot in the home. ?? The medical history and recent labs were reviewed prior to the patient's appointment. VNA: none Pertinent labs/tests: Interpretation: October 2019 ABIs: ?? RIGHT: No significant lower extremity arterial occlusive disease identifiable at rest. Normal ankle/brachial pressure ratios and ankle Doppler waveforms. ?? LEFT: No significant lower extremity arterial occlusive disease identifiable at rest. Normal ankle/brachial pressure ratios and ankle Doppler waveforms. ?? Imaging: none recent of right foot ?? Pertinent labs: Lab Results Component Value Date HA1C 5.6 03/09/2020 Lab Results Component Value Date WBC 10.2 (H) 03/14/2020 HGB 12.9 (L) 03/14/2020 HCT 39.0 (L) 03/14/2020 MCV 93.5 (H) 03/14/2020 PLATELET 398 (H) 03/14/2020 Lab Results Component Value Date NA 136 03/14/2020 K 3.6 03/14/2020 CL 100 03/14/2020 CO2 27 03/14/2020 BUN 7 (L) 03/14/2020 CREATININE 0.67 (L) 03/14/2020 GLUCOSE 112 03/10/2020 GLUCFASTING 95 03/14/2020 CALCIUM 9.5 03/14/2020 ESTGFR 100 03/14/2020 Review Of Systems: constitutional symptoms of - fever, +chills, -sweats, +fatigue Neuro: denies GARCIA, dizziness CV: Denies CP, SOB GI: + nausea + vomiting, - diarrhea : Denies voiding issues Diet: reports not eating today, as not hungry Wound care: assistance from his sister Leg fatigue, calf cramping, skin itching: denies. Neuropathy: + to bilateral feet Pain: + to right plantar foot Objective: BP (!) 177/91 (BP Location (NBP): Right arm, Patient Position: Sitting, BP Cuff Sizes: Adult (25-34 cm)) Pulse 70 Temp 36.5 ??C (97.7 ??F) (Oral) SpO2 97% General: pleasant, 64 year old male in NAD. Arrives with female friend. Mobility: Ambulates independently. Edema: 2 + to bilateral lower legs and feet. DP, PT pulses 4/4 bilaterally. Varicosities: + to bilateral lower legs. Hemosiderin staining: + to bilateral lower legs. Stasis dermatitis: slight to left lower leg. Callus: significant to left plantar. bilateral foot warm to touch. Wound Location 06/07/20 Measurements today Previous Measurements 05/09 Wound bed Exudate Glenna wound skin Right plantar foot 0.9 x 0.4 x <0.1 cm 0.7 x 0.3 x < 0.1 cm 0.6 x 0.2 x < 0.1 cm 100% Bigfoot,moist minimal serous Bigfoot, calloused, macerated Left Foot Plantar 0.4 x 0.3 x <0.1 cm Dorsal 0.2 x 3.9 x <0.1 cm (multiple superficial opening along suture line) x x 50% yellow tissue 50% pink Minimal serous + erythema/warmth, especially to left hallux Right plantar Foot Left hallux Left Plantar Left Lateral Treatment: Cleansed wound with normal saline and gauze. Wound cleansed with VASHE wound cleanser times 7 minutes. Removed devitalized tissue, slough, clot, debris with #15 scalpel down to and including subcutaneoustissue < 20 sq cm. Bleeding: minimal to right plantar, controlled with pressure and silver nitrate. Erythema to left hallux and foot marked with sharpie. Dsg: applied mepilex Ag non-bordered foam with medipore tape to right plantar foot, left plantar, and left hallux. Assessment/Plan: Mahin Ramos is a 64 y.o. male with a neuropathic ulcer of the right plantar foot, surgical wound to left plantar/lateral foot with increased warmth and erythema to left hallux and dorsal foot, as well as new onset vomiting today and chills, no fevers. DONTAE's (10/2019) with no LEAD. No recent imaging. Left Amp site with superficial openings. Right plantar with slightly increased measurements, but did have significant callous/undermining prior to debridement, no signs of local infection to right foot. He is a smoker, about 1 pack per day. Will continue mepilex Ag foam to maintain antimicrobial effect and for exudate management. Reviewed effects of smoking, nutrition, signs of infection. The patient and his verbalized understanding of and agreement with the plan. Follow up: Phone visit on /Friday for close follow up, if worsening of symptoms patient willgo to Emergency room for evaluation/treatment. Plan: Wound care as above, with close follow up Labs: (CBC, BMP, Sed, CRP) Xray of left foot. Start Augmentin today. Discussed in detail signs of infection and when to report to emergency room. Wound care instructions: Right plantar and left lateral, left plantar Change dressing every 2-3 days or sooner for 50% or greater strike through drainage. 1. Remove old dressing. 2. Cleanse area with wound cleanser or normal saline and gauze. 3. Apply skin prep to periwound skin. 4. Cut a piece of Melgisorb AG to fit the wound bed. Apply directly to the wound bed. Do not overlapthe wound margins. 5. Cover wound bed with a Mepilex border dressing OR Mepilex non-bordered foam and secure with Medipore tape OR similar. 6. Secure edges with skin prep. Please report to the Emergency Department if you develop signs/symptoms of infection, this may include the following: Fever Sweats Chills Nausea, Vomiting or Diarrhea: general malaise Spiking Blood Glucose levels, unprovoked Around the wound site: Redness Warmth Purulent drainage Malodor Try to eat 5-6 servings of following foods: High Protein foods: Beef, chicken, fish Beans, Lentils, peanut butter Romanian and regular yogurt Cheese, eggs Boost, Ensure shakes Protein powder in a smoothie of your choice I have ordered Augmentin (amoxicillin- clavulanic acid) for you. This is in the penicillin family and if you have had a reaction to penicillin in the past, do not take it. This antibiotic should be taken at the start of a meal. Avoid high fatty foods with the meal. Common side effects include nausea, loose bowels, diarrhea and rash. Call if you experience any of these symptoms. I suggest adding 1-2 yogurts/day or a probiotic to avoid diarrhea. The yogurt should have live cultures, ie: Romanian or Activia. documented in this encounter Plan of Treatment Upcoming Encounters Date Type Specialty Care Team Description 12/11/2021 Appointment Radiology 12/11/2021 Office Visit Orthopaedics Marion Tavera APRN [facility] ORTHOPAEDIC SURG [place], [place] [address] (Wo rk) 01/15/2022 Appointment Radiology Stiven Cervantes MD [facility] Pulmonary Medici [place], [place] [address] (Wo rk) Scheduled Procedures Name [...] Esquivel, Understanding Action Plan 9:07 AM EDT) [facility] Note: Formatting of this note might be d ifferent from the original. Patient Goal: To experience less side ef fects than his past regimen of Peg and Ribavirin Timeframe to meet goal: 3 months of ther apy documented as of this encounter Procedures Procedure Name Priority Date/Time Associated Diagnosis Comme nts HC C-REACTIVE PROTEIN Routine 06/07/2020 4:55 PM Neuropathic u lcer of Results for this EST foot, right, with procedure are in fat layer expose d the results Cellulitis, section. unspecified cellulitis site HC VENIPUNCTURE Routine 06/07/2020 4:55 PM Neuropathic ulcer o f Results for this EST foot, right, with procedure are in fat layer expose d the results Cellulitis, section. unspecified cellulitis site BASIC METABOLIC PANEL Routine 06/07/2020 4:55 PM Neuropathic u lcer of Results for this (NON-FASTING) EST foot, right, with procedure are in [...] below. Niki Stockton APRN IMG DX ORDERABLES (ABNORMAL) Sedimentation rate (06/07/2020 4:55 PM EST) P athologist Signature Sed Rate 47 (H) 2 - 37 [facility] mm/hr [facility] Comment: Effective April 21, 2019 new capillar y photometric technology has resulted in a change in reference ranges. It is r ecommended that each ESR result be reviewed with its own age appropriate re ference range. Specimen Anatomical Collection Method Collection Time Receive d Time (Source) Location / / Volume Laterality Blood specimen 06/07/2020 4:55 PM 021 5:22 (specimen) EST PM EST Resulting Agency Comment Spec In Lab Niki Stockton APRN HEMATOLOGY ORDERABLES Performing Organization Address City/State/ZIP Code Phon e Number [address] (ABNORMAL) CRP, acute inflammation (06/07/2020 4:55 PM EST) athologist Signature CRP 12.5 (H) <=4.9 mg/L [facility] Specimen Anatomical Collection Method Collection Time Receive d Time (Source) Location / / Volume Laterality Blood specimen 06/07/2020 4:55 PM 021 5:22 (specimen) EST PM EST Resulting Agency Comment Spec In Lab Niki L Mahin [facility] CHEMISTRY ORDERABLES Performing Organization Address City/State/ZIP Code Phon e Number [address] (ABNORMAL) Basic Metabolic Panel (non-fasting) (06/07/2020 4:55 PM EST) athologist Signature Glucose Lvl 99 65 - 199 [facility] mg/dL [facility] Comment: Diabetes: >=200 mg/dL plus symp toms BUN 6 (L) 10 - 20 mg/dL [facility] Creatinine 0.78 (L) 0.80 - 1.50 mg/dL [facility] Sodium 140 135 - 145 mmol/L [facility] Potassium 3.6 3.5 - 5.0 mmol/L [facility] Comment: Please note: ??Patients with WBC >100,00 0 may have falsely elevated Potassium levels. ??For accurate Potassium quantif ication in these patients send serum separator tube (gold top) for subsequent determinations. ??Contact the Clinical Chemistry Laboratory if there are any qu estions. Chloride 97 (L) 98 - 107 mmol/L [facility] CO2 31 22 - 31 mmol/L [facility] Anion Gap 12 5 - 15 mmol/L [facility] Calcium 9.8 8.5 - 10.5 mg/dL [facility] Estimated GFR 94 >=60 mL/min/1.73 m?? [facility] Comment: This patient? s estimated glomerular filtration rate (eGFR) is between 94 mL/min/1.73 m2 (patients with less muscl e mass per kg body weight) and 109 mL/min/1.73 m2 (patients with more muscl e mass per kg body weight) as determined by the CKD-EPI equation. Asse ssment of eGFR is not appropriate when creatinine concentrations are rapidly ch anging. For clinical decisions where creatinine clearance will affect therapy , a 24-hour urine creatinine clearance may be advised. Assignment of CKD stage 1 ? 5 for patients with an eGFR near the transition point between stages may be based on cli nical assessment of muscle mass and symptoms in addition to eGFR. Specimen Anatomical Collection Method Collection Time Receive d Time (Source) Location / / Volume Laterality Blood specimen 06/07/2020 4:55 PM 021 5:22 (specimen) EST PM EST Resulting Agency Comment Spec In Lab Niki Stockton APRN CHEMISTRY ORDERABLES Performing Organization Address City/State/[place] [address] documented in this encounter Visit Diagnoses Diagnosis Neuropathic ulcer of foot, right, with f at layer exposed Cellulitis, unspecified cellulitis site Surgical wound breakdown, subsequent enc ounter Neuropathic ulcer of foot, right, with f at layer exposed Cellulitis, unspecified cellulitis site documented in this encounter Care Teams Plum Packer Relationship Specialty Start Date End Date Brian Fall APRN PCP - General Internal Medicine 04/07/[address] [place] [phone] documented as of this encounter
--- OUTSIDE RECORDS SUMMARY | 2021-11-30 08:19 | XMS_ITS | Encounter Summary ---
:1955 Author Organization [facility] [address] Care Team Providers Name Role Phone Brian Fall APRN Primary Care Provider Encounter Details Date Type Department Care Team Description 02/06/2021 Interpretation Only [facility] Brian Fall APRN [address] [facility] [address] [place] [phone] (Wo rk) Social History Tobacco Use Types [...] 12/11/2021 Office Visit Orthopaedics Marion Tavera APRN [facility] ORTHOPAEDIC SURG [place], [place] [address] (Wo rk) 01/15/2022 Appointment Radiology Stiven Cervantes MD [facility] Pulmonary Medici nelly [place], [place] [address] (Wo rk) Scheduled Procedures Name [...] Esquivel, Understanding Action Plan 9:07 AM EDT) [facility] Note: Formatting of this note might be d ifferent from the original. Patient Goal: To experience less side ef fects than his past regimen of Peg and Ribavirin Timeframe to meet goal: 3 months of ther apy documented as of this encounter Procedures Procedure Name Priority Date/Time Associated Diagnosis Comme nts US ABDOMEN LIMITED Routine 02/06/2021 9:52 AM Res ults for this EDT procedure are i n the results section. documented in this encounter Results US Abdomen Limited (02/06/2021 9:52 AM EDT) P athologist Signature PT CLASS O RAD ADMITDTTM RAD PT [facility] INFO [id number]^K RAD ARALIUS^BRIAN EXAM DESC UABDLIM^US RAD ABDOMEN LIMITED^RIS Anatomical Region Laterality Modality Abdomen Ultrasound Specimen (Source) Anatomical Location Collection Method / Collectio n Time Received Time / Laterality Volume Impressions 02/06/2021 10:01 AM EDT Liver steatosis. No focal liver lesions identified. Cholelithiasis without sonographic evidence of acute ch olecystitis. Thank you for letting us participate in the care of this patient. ??If you are a health care provider and have any questi ons regarding this report, please contact the number below. ??For patients who have questions please contact the health direct care worker that requested your imaging first. ? Narrative 02/06/2021 10:01 AM EDT EXAMINATION: US ABDOMEN LIMITED CLINICAL HISTORY: Chronic viral hepatiti s C, chronic hep C, monitor by US every 6 months. TECHNIQUE: Ultrasound of the right upper quadrant was performed. COMPARISON: August 07, 2020 FINDINGS: The liver is upper limits of n ormal at 18 cm craniocaudally and demonstrates mild heterogeneity to the e chotexture without mass. Portal vein is patent with hepatopetal flow. Normal por joan venous velocity at 24 cm/s. The gallbladder contains multiple calculi wi thout pericholecystic fluid, or gallbladder wall thickening. Negative so nographic Blair's sign. Common bile duct measures 2mm. Imaged portion of the pancreas is unremarkable. Pancreatic tail is obscured by overlying bowel gas. The right kidney is unremarkable without hydronephrosis and measures 11cm . Procedure Note Kushal Pascual MD - 02/06/2021For matting of this note might be different from the original. EXAMINATION: US ABDOMEN LIMITED CLINICAL HISTORY: Chronic viral hepatiti s C, chronic hep C, monitor by US every 6 months. TECHNIQUE: Ultrasound of the right upper quadrant was performed. COMPARISON: August 07, 2020 FINDINGS: The liver is upper limits of n ormal at 18 cm craniocaudally and demonstrates mild heterogeneity to the e chotexture without mass. Portal vein is patent with hepatopetal flow. Normal por joan venous velocity at 24 cm/s. The gallbladder contains multiple calculi wi thout pericholecystic fluid, or gallbladder wall thickening. Negative so nographic Blair's sign. Common bile duct measures 2mm. Imaged portion of the pancreas is unremarkable. Pancreatic tail is obscured by overlying bowel gas. The right kidney is unremarkable without hydronephrosis and measures 11cm . IMPRESSION Liver steatosis. No focal liver lesions identified. Cholelithiasis without sonographic evidence of acute ch olecystitis. Thank you for letting us participate in the care of this patient. If you are a health care provider and have any questi ons regarding this report, please contact the number below. For patients w ho have questions please contact the health direct care worker that requested your imaging first. Brian Fall APRN IM US GEN ORDERABLES documented in this encounter Visit Diagnoses Not on filedocumented in this encounter Care Teams Workers Compensation Claims Assistant Relationship Specialty Start Date End Date Brian Fall APRN PCP - General Internal Medicine 04/07/[address] [place] [phone] documented as of this encounter
--- OUTSIDE RECORDS SUMMARY | 2021-11-30 08:19 | XMS_ITS | Encounter Summary ---
:1955 Author Organization [facility] [place] [address] Care Team Providers Name Role Phone Brian Fall APRN Primary Care Provider Encounter Details Date Type Department Care Team Description 04/14/2021 [facility] [place] [address] [facility] [address] [place], [place] [phone] Social History Tobacco Use Types Packs/Day Years [...] 12/11/2021 Office Visit Orthopaedics Marion Tavera APRN [facility] ORTHOPAEDIC SURG [place], [place] [address] (Wo rk) 01/15/2022 Appointment Radiology Stiven Cervantes MD [facility] Pulmonary Medici nelly [place], [place] [address] (Wo rk) Scheduled Procedures Name Priority Associated Diagnoses Date/Time DEBRIDEMENT SKIN, SUBCU, MUSCLE, R great toe amp utation, wound LOWER EXTREMITY (WRVU 2.7) closure MODIFIER WOUND VAC R great toe amputation, wound closure documented as of this encounter Goals Goal Patient Goal Associated Recent Patient-Stated? Author Type Problems Progress Home Medication Patient On track No Ryan, Compliance and Facing (07/31/2016 Julia Esquivel, Understanding Action Plan 9:07 AM EDT) [facility] Note: Formatting of this note might be d ifferent from the original. Patient Goal: To experience less side ef fects than his past regimen of Peg and Ribavirin Timeframe to meet goal: 3 months of ther apy documented as of this encounter Procedures Procedure Name Priority Date/Time Associated Diagnosis Comme nts MRI LOWER EXTREMITY Routine 04/14/2021 11:32 AM R esults for this NON JOINT WO EST procedure are i n CONTRAST the results section. documented in this encounter Results MRI Lower Extremity Non Joint wo Contrast (04/14/2021 11:32 AM EST) P athologist Signature PT CLASS O RAD ADMITDTTM RAD PT [facility] INFO [id number]^W RAD ILTON^CHINO EXAM DESC MRLEWO^MRI RAD RT LOW EXT.NONJOINT W/O CONTR^RIS Anatomical Region Laterality Modality Hip, Thigh, Knee, Leg, Ankle, Foot Magne tic Resonance Specimen (Source) Anatomical Location Collection Method / Collectio n Time Received Time / Laterality Volume Impressions 04/16/2021 3:13 PM EST 1. ??Osteomyelitis of the mid and distal fourth RIGHT metatarsals and proximal fourth phalanx. Dorsal dislocation at th e fourth MTP joint on the basis of torn collateral ligaments and plantar plates. 2. ??T2 STIR hyperintensity involving th e distal third and fifth metatarsals and proximal phalanges of these digits, with out corresponding T1 hypointensity. These findings can be seen with reactive osteitis (given the surrounding cellulitis), versus early osteomyelitis. 3. ??Extensive soft tissue edema extendi ng from the plantar skin surface of the fourth tarsometatarsal joint, surroundin g the second through third metatarsals, concerning for cellulitis. 4. ??Extensive degenerative change, as d etailed above. I have personally reviewed the image(s) and the resident's interpretation and agree with the findings, Karla Martinez MD at 04/16/2021 3:13 PM Thank you for letting us participate in the care of this patient. ??If you are a health care provider and have any questi ons regarding this report, please contact the number below. ??For patients who have questions please contact the health child care nurse that requested your imaging first. ? 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 COMPARISON: Right foot x-ray 04/09/2021. Right foot MRI dated 05/22/2019. FINDINGS: Problem specific finding: -Extensive confluent T1 hypointensity ex tending from the mid aspect of the fourth metatarsal, distally to involve m ost the entirety of the proximal fourth phalanx. There is associated STIR hyperi ntensity. -Additionally, there is confluent STIR h yperintensity at the distal third and fourth metatarsals and proximal phalanxe s of these digits, without corresponding T1 hypointensity. -Dorsal dislocation of the middle phalan x of the fourth toe on the basis of complete plantar plates and collateral l igament tears. Remaining bones/joints: Healed fracture deformity of the first interphalangeal joint and fifth metatarsal without under lying marrow edema. Scattered areas of moderate severity degenerative change, m ost prominent at the first metatarsophalangeal joint, second tarsom etatarsal joint, and navicular medial cuneiform joints. Of note, the navicular medial cuneiform joint and second tarsometatarsal joint demonstrate subcho ndral sclerosis and marrow edema on either side of the joint. Para-articular soft tissues: Diffuse fat ty atrophy of the intrinsic muscles of the foot. Soft tissue edema extending fr om the plantar skin surface of the fourth metatarsophalangeal joint anterio rly, surrounding the second through fourth metatarsals. Small focus of air o r metal susceptibility artifact along the dorsal margin of the fourth metatars ophalangeal joint. No discrete fluid collection. There is likely a small ulce r at the plantar skin surface of the fourth metatarsophalangeal joint. Tendons: Normal signal without surroundi ng fluid. Lisfranc ligament and other ligaments: N ormal signal without a tear. Plantar fascia: Normal limits. Procedure Note Karla Martinez MD - 04/16/2021Forma tting of this note might be different from the original. 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 COMPARISON: Right foot x-ray 04/09/2021. Right foot MRI dated 05/22/2019. FINDINGS: Problem specific finding: -Extensive confluent T1 hypointensity ex tending from the mid aspect of the fourth metatarsal, distally to involve m ost the entirety of the proximal fourth phalanx. There is associated STIR hyperi ntensity. -Additionally, there is confluent STIR h yperintensity at the distal third and fourth metatarsals and proximal phalanxe s of these digits, without corresponding T1 hypointensity. -Dorsal dislocation of the middle phalan x of the fourth toe on the basis of complete plantar plates and collateral l igament tears. Remaining bones/joints: Healed fracture deformity of the first interphalangeal joint and fifth metatarsal without under lying marrow edema. Scattered areas of moderate severity degenerative change, m ost prominent at the first metatarsophalangeal joint, second tarsom etatarsal joint, and navicular medial cuneiform joints. Of note, the navicular medial cuneiform joint and second tarsometatarsal joint demonstrate subcho ndral sclerosis and marrow edema on either side of the joint. Para-articular soft tissues: Diffuse fat ty atrophy of the intrinsic muscles of the foot. Soft tissue edema extending fr om the plantar skin surface of the fourth metatarsophalangeal joint anterio rly, surrounding the second through fourth metatarsals. Small focus of air o r metal susceptibility artifact along the dorsal margin of the fourth metatars ophalangeal joint. No discrete fluid collection. There is likely a small ulce r at the plantar skin surface of the fourth metatarsophalangeal joint. Tendons: Normal signal without surroundi ng fluid. Lisfranc ligament and other ligaments: N ormal signal without a tear. Plantar fascia: Normal limits. IMPRESSION 1. Osteomyelitis of the mid and distal f ourth RIGHT metatarsals and proximal fourth phalanx. Dorsal dislocation at th e fourth MTP joint on the basis of torn collateral ligaments and plantar plates. 2. T2 STIR hyperintensity involving the distal third and fifth metatarsals and proximal phalanges of these digits, with out corresponding T1 hypointensity. These findings can be seen with reactive osteitis (given the surrounding cellulitis), versus early osteomyelitis. 3. Extensive soft tissue edema extending from the plantar skin surface of the fourth tarsometatarsal joint, surroundin g the second through third metatarsals, concerning for cellulitis. 4. Extensive degenerative change, as det glenys above. I have personally reviewed the image(s) and the resident's interpretation and agree with the findings, Karla Martinez MD at 04/16/2021 3:13 PM Thank you for letting us participate in the care of this patient. If you are a health care provider and have any questi ons regarding this report, please contact the number below. For patients w ho have questions please contact the health child care nurse that requested your imaging first. Chino Thurston DPM IMG MRI ORDERABLES documented in this encounter Visit Diagnoses Not on filedocumented in this encounter Care Teams Fiction And Nonfiction Author Relationship Specialty Start Date End Date Biran Fall APRN PCP - General Internal Medicine 04/07/[address] [place] [phone] documented as of this encounter
--- OUTSIDE RECORDS SUMMARY | 2021-11-30 08:19 | XMS_ITS | Encounter Summary ---
:1955 Author Organization [facility] [place] [address] Care Team Providers Name Role Phone Brian Fall APRN Primary Care Provider Encounter Details Date Type Department Care Team Description 08/22/[address] [facility] Мария Kaur RN [address] [place] [address] Social History Tobacco Use Types Packs/Day Years [...] 12/11/2021 Office Visit Orthopaedics Marion Tavera APRN [facility] ORTHOPAEDIC SURG [place], [place] [address] (Wo rk) 01/15/2022 Appointment Radiology Stiven Cervantes MD [facility] Pulmonary Medici nelly [place], [place] [address] (Wo rk) Scheduled Procedures Name [...] Understanding Action Plan 9:07 AM EDT) [facility] Note: Formatting of this note might be d ifferent from the original. Patient Goal: To experience less side ef fects than his past regimen of Peg and Ribavirin Timeframe to meet goal: 3 months of ther apy documented as of this encounter Visit Diagnoses Not on filedocumented in this encounter Care Teams Market Intelligence Consultant Relationship Specialty Start Date End Date Brian Fall APRN PCP - General Internal Medicine 04/07/[address] [place] [phone] documented as of this encounter
--- OUTSIDE RECORDS SUMMARY | 2021-11-30 08:19 | XMS_ITS | Encounter Summary ---
:1955 [place] [address] Care Team Providers Name Role Phone Brian Fall APRN Primary Care Provider Encounter Details Date Type Department Care Team Description 04/10/2020 Telephone Infectious Disease a [facility] Maribeth Peguero [place] [facility] [place] [address] [place] [id number] [phone] (Wo rk) Social History Tobacco Use Types Packs/Day Years Used Date Current Every Day Smoker Cigars, Cigarettes 1 42 Smokeless Tobacco: Never Used Alcohol Use Standard Drinks/Week Comments Yes 24 (1 standard drink = 0.6 oz pure alcoh ol) Sex Assigned at Date Recorded Not on file documented as of this encounter Miscellaneous Notes Telephone Encounter - Maribeth Peguero APRN - 04/10/2020 9:25 AM EST S: I'm feeling good. My leg is improving, the swelling is down. Telephone call to patient ([phone]) to give him the result of D-dimer test that was added to his lab work last week and to check to see if his symptoms of pain, swelling, and stiffness L calf, reported to this provider during his interim long-term antimicrobial follow-up visit, are increased or persisting. Patient states he has improvement in symptoms, specifically, the L calf edema has decreased. It's still a little bigger than my R calf but it is much better. He denies pain and stiffness atsite, denies chest pain, SOB, GARCIA, change in mental status. There is no warmth, lump, tenderness. He does report that the calf is firm, but I think that's from the swelling. O: D-dimer = 467 ng/mL (range = 0 - 400) A: The D-dimer test is not the best predictor of DVT in patient with other reasons for an elevated result (osteomyelitis), however, it is reassuring that the result is not 3-5 x the upper limit of normal. This test was helpful information for a patient resistant to coming in for evaluation via dopplerstudy or u/s. Given his improvement subjectively and objectively (decreased edema per his report), we are less suspicious of a DVT. That said, patient reminded of s/s to seek urgent and emergent evaluation..pain, SOB, chest pain, cough, GARCIA, mental status change, etc. P: 1. Continue antimicrobial therapy as previously ordered 2. Continue weekly CBC w/diff, CMP, and CRP 3. End of therapy visit with Dr. Abel 04/21/2020 4. Patient's ID Attending, Dr. Stevenson, apprised of above Maribeth Peguero APRN, Infectious Disease 04/10/2020 documented in this encounter Plan of Treatment Upcoming Encounters Date Type Specialty Care Team Description 12/11/2021 Appointment Radiology 12/11/2021 Office Visit Orthopaedics Marion Tavera APRN [facility] ORTHOPAEDIC SURG [place], [place] [address] (Wo rk) 01/15/2022 Appointment Radiology Stiven Cervantes MD [facility] Pulmonary Medici nelly [place], [place] [address] (Wo rk) Scheduled Procedures Name [...] on filedocumented in this encounter Care Teams Food Services Coordinator Relationship Specialty Start Date End Date Brian Fall APRN PCP - General Internal Medicine 04/07/[address] [place] [phone] documented as of this encounter
--- OUTSIDE RECORDS SUMMARY | 2021-11-30 08:19 | XMS_ITS | Encounter Summary ---
:1955 Author Organization [facility] [address] Care Team Providers Name Role Phone Brian Fall APRN Primary Care Provider Encounter Details Date Type Department Care Team Description 05/24/2020 Telephone Administration [place] [address] Social History Tobacco Use Types Packs/Day Years Used Date Current Every Day Smoker Cigars, Cigarettes 1 42 Smokeless Tobacco: Never Used Alcohol Use Standard Drinks/Week Comments Yes 22 (1 standard drink = 0.6 oz pure alcoh ol) Sex Assigned at Date Recorded Not on file documented as of this encounter Miscellaneous Notes Telephone Encounter - Sparkle Mason RN - 05/24/2020 2:59 PM EST Spoke with Zach from [facility] she is still calling to have the overnight o2 monitoring order corrected. She states it needs to specify if this is going to be done on room air or with supplemental oxygen. She states the initial request for this was submitted in March of 2020. Zach can be reached at [phone] with any further questions. documented in this encounter Plan of Treatment Upcoming Encounters Date Type Specialty Care Team Description 12/11/2021 Appointment Radiology 12/11/2021 Office Visit Orthopaedics Marion Tavera APRN [facility] DR ORTHOPAEDIC SURG [place], [place] [address] (Wo rk) 01/15/2022 Appointment Radiology Stiven Cervantes MD [facility] er Pulmonary Tim villegas [place], [place] [address] (Wo rk) Scheduled Procedures Name [...] Esquivel, Understanding Action Plan 9:07 AM EDT) [facility] Note: Formatting of this note might be d ifferent from the original. Patient Goal: To experience less side ef fects than his past regimen of Peg and Ribavirin Timeframe to meet goal: 3 months of ther apy documented as of this encounter Visit Diagnoses Not on filedocumented in this encounter Care Teams Gas Transfer Operator Relationship Specialty Start Date End Date Brian Fall APRN PCP - General Internal Medicine 04/07/[address] [place] [phone] documented as of this encounter
--- OUTSIDE RECORDS SUMMARY | 2021-11-30 08:19 | XMS_ITS | Encounter Summary ---
:1955 [place] [address] Care Team Providers Name Role Phone Brian Fall APRN Primary Care Provider Encounter Details Date Type Department Care Team Description 06/08/2020 Telephone Wound Care at Mirta Valverde APRN [facility] [place] [address] [place] [id number] [phone] (Wo rk) Social History Tobacco Use Types Packs/Day Years Used Date Current Every Day Smoker Cigars, Cigarettes 1 42 Smokeless Tobacco: Never Used Alcohol Use Standard Drinks/Week Comments Yes 22 (1 standard drink = 0.6 oz pure alcoh ol) Sex Assigned at Date Recorded Not on file documented as of this encounter Miscellaneous Notes Telephone Encounter - Niki Stockton APRN - 06/08/2020 12:40 PM EST CC: Xray/lab results/check in Called and discussed results with both Mahin and his chandler [place] at worked tried to call but they could not reach her. Mahin states he is feeling better today, no nausea or vomiting, no fevers. He states two continues to be red and nail turning color, but no increased pain, limited sensation. He did start antibiotics. Xray: FINDINGS: Soft tissue calcification in the lateral left foot at the site of the fourth and fifth amputated rays may reflect heterotopic ossification. Resection margins without erosion. Hallux valgus persists. Contracture deformities at the first through third rays persist. Degenerative and osteopenic lucency through the nasal sesamoid. No acute bony fracture. No erosion. Diffuse linear reduced mineralization. No soft tissue gas. ?? IMPRESSION No radiographic evidence of osteomyelitis. Lab Results Component Value Date NA 140 06/07/2020 K 3.6 06/07/2020 CL 97 (L) 06/07/2020 CO2 31 06/07/2020 BUN 6 (L) 06/07/2020 CREATININE 0.78 (L) 06/07/2020 GLUCOSE 99 06/07/2020 GLUCFASTING 95 03/14/2020 CALCIUM 9.8 06/07/2020 ESTGFR 94 06/07/2020 Lab Results Component Value Date CRP 12.5 (H) 06/07/2020 Lab Results Component Value Date SEDRATE 47 (H) 06/07/2020 Plan: Continue local wound care Antibiotic till complete Labs do show inflammation, but xray without osteo. Follow up early next week at wound center. If worsening over weekend recommend emergency room visit. documented in this encounter Plan of Treatment Upcoming Encounters Date Type Specialty Care Team Description 12/11/2021 Appointment Radiology 12/11/2021 Office Visit Orthopaedics Marion Tavera APRN [facility] ORTHOPAEDIC SURG [place], [place] [address] (Wo rk) 01/15/2022 Appointment Radiology Stiven Cervantes MD [facility] Pulmonary Medici [place], [place] [address] (Wo rk) Scheduled Procedures Name [...] Esquivel Understanding Action Plan 9:07 AM EDT) [facility] Note: Formatting of this note might be d ifferent from the original. Patient Goal: To experience less side ef fects than his past regimen of Peg and Ribavirin Timeframe to meet goal: 3 months of ther apy documented as of this encounter Visit Diagnoses Not on filedocumented in this encounter Care Teams Head Of Digital Relationship Specialty Start Date End Date Brian Fall APRN PCP - General Internal Medicine 04/07/19 [address] [place] [phone] documented as of this encounter
--- OUTSIDE RECORDS SUMMARY | 2021-11-30 08:19 | XMS_ITS | Encounter Summary ---
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 Overnight Pulse Oxim etry Encounter Details Date Type Department Care Team Description 05/23/2020 Telephone Pulmonology at [facility] Reji Oxygen Dependence [facility] Jenni Jones ([place] [address] S, RN Oximetry) [phone] Social History Tobacco Use Types Packs/Day Years Used Date Current Every Day Smoker Cigars, Cigarettes 1 42 Smokeless Tobacco: Never Used Alcohol Use Standard Drinks/Week Comments Yes 22 (1 standard drink = 0.6 oz pure alcoh ol) Sex Assigned at Date Recorded Not on file documented as of this encounter Miscellaneous Notes Telephone Encounter - Karen Mendoza RN - 05/23/2020 12:11 PM EST Rec'd call back from Zach at [employer], stating that order they had received for overnight pulse oximetry did not specify if on Room Air or on supplemental oxygen. She notes that the orders that had been received previously on 05/13/2020. She also states that follow up office visit notes of oxygen, reviewing usage and benefit from usage would be needed for medicare billing. Telephone Encounter - Karen Mendoza RN - 05/23/2020 8:41 AM EST Rec'd call from Zach Adornoannabel at [employer], stating that she had called previously, butwas in need of new orders for orders regarding his overnight pulse oximetry testing that would indicate if this testing was on room air or on supplemental O2. She also sought to get annual appointment scheduled for patient. RN called back, but was met with voicemail. RN confirmed that message had been received, but requested clarification for orders to be pended to physician (Dr. Cervantes). documented in this encounter Plan of Treatment Upcoming Encounters Date Type Specialty Care Team Description 12/11/2021 Appointment Radiology 12/11/2021 Office Visit Orthopaedics Marion Tavera APRN [facility] DR ORTHOPAEDIC SURG [place], [place] [address] (Wo rk) 01/15/2022 Appointment Radiology Stiven Cervantes MD [facility] Pulmonary Medici [place], [place] [address] (Wo rk) Scheduled Procedures Name [...] Action Plan 9:07 AM EDT) [facility] Note: Formatting of this note might be d ifferent from the original. Patient Goal: To experience less side ef fects than his past regimen of Peg and Ribavirin Timeframe to meet goal: 3 months of ther apy documented as of this encounter Visit Diagnoses Not on filedocumented in this encounter Care Teams Air Brake Tester Relationship Specialty Start Date End Date Brian Fall APRN PCP - General Internal Medicine 04/07/[address] [place] [phone] documented as of this encounter
--- OUTSIDE RECORDS SUMMARY | 2021-11-30 08:19 | XMS_ITS | Encounter Summary ---
:1955 Author Organization [facility] [address] Care Team Providers Name Role Phone Brian Fall APRN Primary Care Provider Encounter Details Date Type Department Care Team Description 05/15/2021 Interpretation Only [facility] [address], [place], [place] [phone] [place], [place] [phone] (Wo rk) Social History Tobacco Use Types [...] Visit Orthopaedics Marion Tavera APRN [facility] ORTHOPAEDIC SURG [place], [place] [address] (Wo rk) 01/15/2022 Appointment Radiology Stiven Cervantes MD [facility] Pulmonary Medici [place], [place] [address] (Wo rk) Scheduled Procedures Name [...] Esquivel, Understanding Action Plan 9:07 AM EDT) [facility] Note: Formatting of this note might be d ifferent from the original. Patient Goal: To experience less side ef fects than his past regimen of Peg and Ribavirin Timeframe to meet goal: 3 months of ther apy documented as of this encounter Procedures Procedure Name Priority Date/Time Associated Diagnosis Comme nts XR CHEST ONE VIEW STAT 05/15/2021 11:45 AM Res ults for this EST procedure are i n the results section. documented in this encounter Results XR Chest One View (05/15/2021 11:45 AM EST) P athologist Signature PT CLASS I RAD ADMITDTTM RAD PT [facility] INFO [id number]^D RAD EHART^DILLAR D^L EXAM DESC XCXR1^XR RAD CHEST 1 VIEW^RIS Anatomical Region Laterality Modality Chest N/A Radiographic Imaging Specimen (Source) Anatomical Location Collection Method / Collectio n Time Received Time / Laterality Volume Impressions 05/15/2021 12:03 PM EST No interval change; interstitial pattern may reflect chronic interstitial lung disease or fibrosis. Thank you for letting us participate in the care of this patient. ??If you are a health care provider and have any questi ons regarding this report, please contact the number below. ??For patients who have questions please contact the health health care legal assistant that requested your imaging first. ? Narrative 05/15/2021 12:03 PM EST EXAMINATION: XR CHEST 1 VIEW CLINICAL HISTORY: surgical admission TECHNIQUE: AP upright portable chest 05/15/2021 at 11 41 hours COMPARISON: 03/12/2021 FINDINGS: Unchanged elevation of the right hemidia phragm with right infrahilar crowding. Diffuse mild enlargement of the central pulmonary vasculature is unchanged. Abnormal interstitial pattern throughout both lungs with a slight apical predominance is unchanged. No nodule or airspace opacity. No pneumothorax or pleural effusion. Heart size and mediastinal configuration are within normal limits, allowing for apical lordotic positioning. Both humeral heads are high riding, abut ting the acromions, which suggests rotator cuff tears. Procedure Note Nikia Velazquez MD - 05/15/2021Formatt ing of this note might be different from the original. EXAMINATION: XR CHEST 1 VIEW CLINICAL HISTORY: surgical admission TECHNIQUE: AP upright portable chest 05/15/2021 at 11 41 hours COMPARISON: 03/12/2021 FINDINGS: Unchanged elevation of the right hemidia phragm with right infrahilar crowding. Diffuse mild enlargement of the central pulmonary vasculature is unchanged. Abnormal interstitial pattern throughout both lungs with a slight apical predominance is unchanged. No nodule or airspace opacity. No pneumothorax or pleural effusion. Heart size and mediastinal configuration are within normal limits, allowing for apical lordotic positioning. Both humeral heads are high riding, abut ting the acromions, which suggests rotator cuff tears. IMPRESSION No interval change; interstitial pattern may reflect chronic interstitial lung disease or fibrosis. Thank you for letting us participate in the care of this patient. If you are a health care provider and have any questi ons regarding this report, please contact the number below. For patients w ho have questions please contact the health health care legal assistant that requested your imaging first. Electronically signed by: Nikia Velazquez MD, [facility] ([phone]), at 05/15/2021 12:03 PM [place] DO IMG DX ORDERABLES documented in this encounter Visit Diagnoses Not on filedocumented in this encounter Care Teams Dispute Resolution Analyst Relationship Specialty Start Date End Date Brian Fall APRN PCP - General Internal Medicine 04/07/[address] [place] [phone] documented as of this encounter
--- OUTSIDE RECORDS SUMMARY | 2021-11-30 08:19 | XMS_ITS | Encounter Summary ---
:1955 [place] [address] Care Team Providers Name Role Phone Brian Fall APRN Primary Care Provider Reason for Visit Reason Comments Wound Check Encounter Details Date Type Department Care Team Description 06/12/2020 Office Visit Wound Care at [facility] uropathic ulcer of foot, right, with fat layer exposed; [facility] LISA Surgical wound breakdown, subsequent [facility] WOUND [place] [phone] Social History Tobacco Use Types Packs/Day Years Used Date Current Every Day Smoker Cigars, Cigarettes 1 42 Smokeless Tobacco: Never Used Alcohol Use Standard Drinks/Week Comments Yes 22 (1 standard drink = 0.6 oz pure alcoh ol) Sex Assigned at Date Recorded Not on file documented as of this encounter Last Filed Vital Signs Vital Sign Reading Time Taken Comments Blood Pressure 181/86 06/12/2020 4:03 PM EST Pulse 50 06/12/2020 4:03 PM EST Temperature 36.7 ??C (98 ??F) 06/12/2020 4:03 PM EST Respiratory Rate - - Oxygen Saturation 96% 06/12/2020 4:03 PM EST Inhaled Oxygen Concentration - - Weight - - Height - - Body Mass Index - - documented in this encounter Patient Instructions Patient InstructionsNiki Stockton APRN - 06/12/2020 4:00 PM EST Wound care instructions: Right plantar and left [...] similar. 6. Secure edges with skin prep. Bilateral lower legs: Triamcinolone Please report to the Emergency Department if you develop signs/symptoms of infection, this may include the following: Fever Sweats Chills Nausea, Vomiting or Diarrhea: general malaise Spiking Blood Glucose levels, unprovoked Around the wound site: Redness Warmth Purulent drainage Malodor Try to eat 5-6 servings of following foods: High Protein foods: Beef, chicken, fish Beans, Lentils, peanut butter Colombian and regular yogurt Cheese, eggs Boost, Ensure shakes Protein powder in a smoothie of your choice documented in this encounter Progress Notes Niki Stockton APRN - 06/12/2020 4:00 PM EST Images from the original note were not included. [facility] Progress Note Chief Complaint: [...] up.?? He was last seen at the [facility] by (MANJIT) on 03/09 and sent [...] 03/14/2020 Lab Results Component Value Date NA 140 06/07/2020 K 3.6 06/07/2020 CL 97 (L) 06/07/2020 CO2 31 06/07/2020 BUN 6 (L) 06/07/2020 CREATININE 0.78 (L) 06/07/2020 GLUCOSE 99 06/07/2020 GLUCFASTING 95 03/14/2020 CALCIUM 9.8 06/07/2020 ESTGFR 94 06/07/2020 Lab Results Component Value Date CRP 12.5 (H) 06/07/2020 Lab Results Component Value Date SEDRATE 47 (H) 06/07/2020 Review Of Systems: constitutional symptoms of - [...] + to right plantar foot Objective: BP 181/86 (BP Location (NBP): Right arm, Patient Position: Sitting, BP Cuff Sizes: Adult (25-34 cm)) Pulse 50 Temp 36.7 ??C (98 ??F) (Oral) SpO2 96% General: pleasant, 64 year old male in NAD. Arrives with female friend. Mobility: Ambulates independently. Edema: 2 + to bilateral lower legs and feet. DP, PT pulses 4/4 bilaterally. Varicosities: + to bilateral lower legs. Hemosiderin staining: + to bilateral lower legs. Stasis dermatitis: slight to left lower leg. Callus: significant to left plantar. bilateral foot warm to touch. Wound Location 06/12/20 06/07/20 Measurements today Previous Measurements 05/09 Wound bed Exudate Glenna wound skin Right plantar foot 0.6 x 0.4 x 0.1 cm 0.9 x 0.4 x <0.1 cm 0.7 x 0.3 x < 0.1 cm 0.6 x 0.2 x < 0.1 cm 100% Ardoch, moist minimal serous Ardoch, calloused, macerated Left Foot Plantar: No open area Dorsal superficial opening with stitch sticking though. Plantar 0.4 x 0.3 x <0.1 cm Dorsal 0.2 x 3.9 x <0.1 cm (multiple superficial opening along suture line) x x 50% yellow tissue 50% pink Minimal serous + erythema of hallux but no warmth, and resolved to dorsal foot. Right plantar Foot Left plantar Left Lateral Treatment: Cleansed wound with normal saline and gauze. Wound cleansed with VASHE wound cleanser times 7 minutes. Removed devitalized tissue, slough, clot, debris with #15 scalpel down to and including subcutaneoustissue < 20 sq cm. Bleeding: minimal to right plantar. Suture removed from left lateral foot, small sutures still to proximal but trimmed down. Dsg: applied mepilex Ag non-bordered foam with medipore tape to right plantar foot, left plantar, and left hallux. Assessment/Plan: Mahin Ramos is a 64 y.o. 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 Competed antibiotics with resolution of foot erythema warmth, hallux continues to be red, but no warmth. He had resolution in vomiting and feeling better. He is also on course of steroids from primary care. DONTAE's (10/2019) with no LEAD. Xray left foot (05/2020) without osteo. CRP and sed slightly elevated. Left Amp site with superficial openings and removedsmall piece of suture and proximal area with continued pieced of suture trimmed down unable to remove. Left plantar now closed. Right plantar with decreased measurements, no signs of local infection toright foot. He is a smoker, about 1 pack per day. Will continue mepilex Ag foam to maintain antimicrobial effect and for exudate management. Reviewed effects of smoking, nutrition, signs of infection. The patient and his verbalized understanding of and agreement with the plan. Follow up: every 2 weeks or sooner if worsening redness or concerns. Plan: Wound care as above, with close follow up MRI of left foot if worsening erythema or wound reopen. Discussed in detail signs of infection and [...] similar. 6. Secure edges with skin prep. Bilateral lower legs: Triamcinolone Please report to the Emergency Department if you develop signs/symptoms of infection, this may include the following: Fever Sweats Chills Nausea, Vomiting or Diarrhea: general malaise Spiking Blood Glucose levels, unprovoked Around the wound site: Redness Warmth Purulent drainage Malodor Try to eat 5-6 servings of following foods: High Protein foods: Beef, chicken, fish Beans, Lentils, peanut butter Colombian and regular yogurt Cheese, eggs Boost, Ensure shakes Protein powder in a smoothie of your choice documented in this encounter Plan of Treatment Upcoming Encounters Date Type Specialty Care Team Description 12/11/2021 Appointment Radiology 12/11/2021 Office Visit Orthopaedics Marion Tavera APRN [facility] DR ORTHOPAEDIC SURG [place], [place] [address] (Wo rk) 01/15/2022 Appointment Radiology Stiven Cervantes MD [facility] Pulmonary Medici [place], [place] [address] (Wo rk) Scheduled Procedures Name [...] Esquivel, Understanding Action Plan 9:07 AM EDT) [facility] [...] foot, right, with f at layer exposed Surgical wound breakdown, subsequent enc ounter documented in this encounter Care Teams Building And Grounds Supervisor Relationship Specialty Start Date End Date Brian Fall APRN PCP - General Internal Medicine 04/07/[address] [place] [phone] documented as of this encounter
--- OUTSIDE RECORDS SUMMARY | 2021-11-30 08:19 | XMS_ITS | Encounter Summary ---
:1955 Author Organization [facility] Address [facility] [place] [address] Care Team Providers Name Role Phone Brian Fall APRN Primary Care Provider Encounter Details Date Type Department Care Team Description 03/22/2020 Telephone Infectious Disease a t [facility] Lexii Rodriguez [facility] [place] [phone] Social History Tobacco Use Types Packs/Day Years Used Date Current Every Day Smoker Cigars, Cigarettes 1 42 Smokeless Tobacco: Never Used Alcohol Use Standard Drinks/Week Comments Yes 24 (1 standard drink = 0.6 oz pure alcoh ol) Sex Assigned at Date Recorded Not on file documented as of this encounter Miscellaneous Notes Telephone Encounter - Lexii Rodriguez RN - 03/22/2020 9:41 AM EST Infectious Disease/OPAT Program Telephone Note/Outgoing Call OPAT: OPAT: Order / Recommendation for Post Discharge IV Antibiotic Management ID Diagnosis: 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 03/10/20 Microorganisms being treated: Strep milleri, Pasteurella multocida, Bacteroides fragilis Antibiotic Allergies: No known antibiotic allergies Antibiotic: Ceftriaxone 2 g IV q 24 hr Antibiotic: Metronidazole 500 mg PO q 8 hr Start date: 03/10/2020 Anticipated stop date: 04/21/2020 Labs: Q Friday: CBC/Diff, CMP Labs: Q Friday Inflammatory CRP Last documented weight (kg): 90.7 kg (200 lb) Last documented height (cm): 175.3 cm (5' 9) Infectious Disease Attending: River Stevenson MD Review/Pertinent information: Patient was discharged home on IV ABX on 03/14/20 with [facility] and infusion vendor MORA. Reviewed 03/20 labs: WBC 12.1 (10.2 on 03/14) and Creatinine 0.88 (0.67 on 03/14). Spoke with patient who reports that he is feeling ok, denies fever, n/v, diarrhea or any other complaints at this time. Patient states that his foot looks good what I can see of it (dressing on foot) and he is hoping all will go well, that he has lost two toes now and wants to keep the remaining three toes. Patient states that he is taking his IV ABX daily as well as his Flagyl 3x daily. Spoke with [facility] nurse Trisha who reports that his wound currently only has a little bit of dry blood, no signs of infection and is covered with dry gauze. He is walking on his half cast. Clinical Appeals Reviewer notifing Dr. River Stevenson & Dr. Page Rdz via in basket. F/u: Labs 04/03: ID JE Harperine Gooley 04/21: ID JACQUI Sarkar, RN, ACM-RN OPAT Program documented in this encounter Plan of Treatment Upcoming Encounters Date Type Specialty Care Team Description 12/11/2021 Appointment Radiology 12/11/2021 Office Visit Orthopaedics Marion Tavera APRN [facility] ORTHOPAEDIC SURG [place], [place] [address] (Wo rk) 01/15/2022 Appointment Radiology Stiven Cervantes MD [facility] Pulmonary Medici [place], [place] [address] (Wo huey) Scheduled Procedures Name Priority Associated Diagnoses Date/Time [...] Understanding Action Plan 9:07 AM EDT) [facility] Note: Formatting of this note might be d ifferent from the original. Patient Goal: To experience less side ef fects than his past regimen of Peg and Ribavirin Timeframe to meet goal: 3 months of ther apy documented as of this encounter Visit Diagnoses Not on filedocumented in this encounter Care Teams Laborer [employer] Bak[employer] Relationship Specialty Start Date End Date Brian Fall APRN PCP - General Internal Medicine 04/07/[address] [place] [phone] documented as of this encounter
--- OUTSIDE RECORDS SUMMARY | 2021-11-30 08:19 | XMS_ITS | Encounter Summary ---
:1955 Author Organization [facility] Address [facility] [place] [address] Care Team Providers Name Role Phone Brian Fall APRN Primary Care Provider Reason for Referral Consultation (Routine) - Specialty Diagnoses / Procedures Referred By Contact Refer red To Contact Diagnoses Neuropathic ulcer of toe of right foot with fat layer exposed History of partial ray amputation of fourth toe of left foot Neuropathic ulcer of foot, right, with fat layer exposed Julia Selby PA [facility] [place] [address] Referral ID Status Reason Start Date Expiration Date Visits V isits Requested Authorized [id number] Consult, 04/17/2020 10/14/2020 1 1 Test & Treat Non PCP Reason for Visit Reason Comments Follow-up PLEASE PAGE IV TEAM [id number], LA BS AND DRESSING CHANGE, NXR-L 4th MT ray resection for osteo 03/10/20 (Joshua) - wound check Encounter Details Date Type Department Care Team Description 04/17/2020 Office Visit Orthopaedics at [facility] Julia Selby Neuropathic ulcer of toe of right foot with fat layer exposed; [facility] NIEVES Esquivel s/p L 4th ray amp for osteo, 03/10/2020 Joshua; Drive [facility] Neuropathic ulcer of foot, r ight, [place] [address] [phone] ORTHOPAEDIC SURGERY [place], [place] [address] Social History Tobacco Use Types Packs/Day Years Used Date Current Every Day Smoker Cigars, Cigarettes 1 42 Smokeless Tobacco: Never Used Alcohol Use Standard Drinks/Week Comments Yes 22 (1 standard drink = 0.6 oz pure alcoh ol) Sex Assigned at Date Recorded Not on file documented as of this encounter Last Filed Vital Signs Vital Sign Reading Time Taken Comments Blood Pressure 157/77 04/17/2020 3:25 PM EST Pulse 57 04/17/2020 3:25 PM EST Temperature - - Respiratory Rate - - Oxygen Saturation - - Inhaled Oxygen Concentration - - Weight 90.7 kg (200 lb) 04/17/2020 3:25 PM EST Height 175.3 cm (5' 9) 04/17/2020 3:25 PM EST Body Mass Index 29.53 04/17/2020 3:25 PM EST documented in this encounter Progress Notes Julia Selby PA - 04/17/2020 4:00 PM EST Images from the original note were not included. PATIENT NAME: Mahin Ramos AGE: 64 y.o. MR#: [id number] DATE OF VISIT: 04/17/2020 CHIEF COMPLAINT: 03/10/2020 (Joshua) Left foot TMT amputation, osteomylitis HISTORY OF PRESENT ILLNESS: Mr. Ramos is a 64 y.o. male who comes into clinic today for evaluation of the left foot. He was last in to see Dr. Lewis on 03/24/2020. Since this time he has been having his dressing changed with his . They have been putting silver mepilex with no border. He denies fever, chills, drenching night sweats. He comes here today with his . He has an appointment with Infectious disease on 04/21/2020 which will likely be removal of the PICC line. Mahin has wound on the plantar aspect of the right foot as well that has not seen wound care. He would like a referral for this. Past medical history: Patient Active Problem List Diagnosis Date Noted ??? s/p L 4th ray amp for osteo, 03/10/2020 Gitajn 03/10/2020 ??? Osteomyelitis 03/09/2020 ??? Neuropathic ulcer of toe of right foot with fat layer exposed 01/06/2020 ??? Cellulitis of leg, right 12/15/2019 ??? Neuropathic ulcer of foot, left, with fat layer exposed 11/11/2019 ??? Neuropathic ulcer of foot, right, with fat layer exposed 11/11/2019 ??? SDH (subdural hematoma) 05/07/2019 ??? Avascular necrosis of humeral head 08/22/2016 ??? Pain in left shoulder 08/22/2016 ??? S/P L TKA 12/13/15 Dr. Mallory 12/13/2015 ??? Cirrhosis 08/09/2015 ??? Ankle fracture, left 06/13/2015 ??? Polysubstance abuse 05/26/2015 ??? Avascular necrosis bilateral knees 04/11/2015 ??? Confusion 08/19/2012 ??? Community acquired pneumonia 08/19/2012 ??? Imbalance 08/19/2012 ??? Hepatitis C 09/06/2011 ??? Alcohol dependence 03/11/2008 ??? Anixety D/O NOS 03/11/2008 ??? ADHD NOS 03/11/2008 ??? Chronic back pain 03/11/2008 ??? Major depressive disorder, single episode, unspecified 03/11/2008 Medications: ??? metroNIDAZOLE (FlagyL) 500 mg Tablet ??? cefTRIAXone (ROCEPHIN) 1 gram Recon Soln ??? gabapentin (Neurontin) 300 mg Capsule ??? lisinopriL (Prinivil;Zestril) 40 mg Tablet ??? nicotine (NICODERM CQ) 21 mg/24 hr Patch 24 hr ??? QUEtiapine (SEROquel) 25 mg Tablet ??? acetaminophen (Tylenol) 325 mg Tablet ??? pantoprazole EC (Protonix) 40 mg Tablet, Delayed Release (E.C.) ??? furosemide (Lasix) 80 mg Tablet ??? buspirone HCl (BUSPIRONE ORAL) ??? citalopram (CELEXA) 20 mg Tablet ??? methadone HCl (METHADONE ORAL) ??? SPIRIVA RESPIMAT 2.5 mcg/actuation Mist ??? ipratropium-albuterol (DUONEB) 0.5 mg-3 mg(2.5 mg base)/3 mL Solution for Nebulization ??? PROAIR HFA 90 mcg/actuation HFA Aerosol Inhaler ??? meTOPROLOL succinate (TOPROL-XL) 100 mg Tablet Sustained Release 24 hr ??? DULERA 100-5 mcg/actuation HFA Aerosol Inhaler ??? multivitamin (THERAGRAN) tablet Allergies: Allergies Allergen Reactions ??? Morphine Other (See Comments) STATES THAT IT DOES NOT TAKE HIS PAIN AWAY Social history: Social History Tobacco Use ??? Smoking status: Current Every Day Smoker Packs/day: 1.00 Years: 42.00 Pack years: 42.00 Types: Cigars, Cigarettes ??? Smokeless tobacco: Never Used Substance Use Topics ??? Alcohol use: Yes Alcohol/week: 24.0 - 25.0 standard drinks Types: 3 - 4 Cans of beer, 21 Standard drinks or equivalent per week Review of systems: No chest pain or shortness of breath No fevers, night sweats or chills Vital signs: Blood pressure 157/77, pulse 57, height 175.3 cm (5' 9), weight 90.7 kg (200 lb). Physical exam: Mr. Ramos is a 64 y.o. male who is alert and oriented. He is in no acute discomfort and is resting comfortably in the exam room. Loose scabbing removed. [place] healthy skin underneath. Very small area on the lateral aspect of the lateral foot which does not probe. Assessment and plan:: 64 y.o. year-old male 03/10/2020 (Gitajn) Left foot TMT amputation, osteomylitis We had a long discussion regarding the nature of Mahin Ramos's chief complaint. . Clinically Mahin Ramos skin looks great. Once the loose scabs were removed we were able to see pink, healthy skin underneath, despite his weight bearing. I would recommend using aquacell AG in the wound loosely placed, cover with sponge and curlex. Please change this every other day or as needed. I do feel that wound care on bilateral feet would be helpful. I have placed an order for this. This plan was discussed with the patient and they are in agreement. All of the patient's questions were answered. The patient understand to contact us if they have any other questions or concerns. FU: With wound care. Julia Selby PA-C The above dictation was made with voice recogonition software documented in this encounter Plan of Treatment Upcoming Encounters Date Type Specialty Care Team Description 12/11/2021 Appointment Radiology 12/11/2021 Office Visit Orthopaedics Marion Tavera APRN [facility] ORTHOP[facility] SURG [place], [place] [address] (Wo rk) 01/15/2022 Appointment Radiology Stiven Cervantes MD [facility] Pulmonary Medici nelly [place], [place] [address] (Wo rk) Scheduled Procedures Name Priority Associated Diagnoses Date/Time DEBRIDEMENT SKIN, SUBCU, MUSCLE, R great toe amp utation, wound LOWER EXTREMITY (WRVU 2.7) closure MODIFIER WOUND VAC R great toe amputation, wound closure Scheduled Referrals Name Type Priority Associated Diagnoses Order S chedule Referral to Wound Outpatient Referral Routine Neuropathic ulce r of Ordered: Clinic toe of right foot 04/17/2020 with fat layer exposed s/p L 4th ray amp for osteo, 03/10/2020 Gitajn Neuropathic ulcer of foot, right, with fat layer exposed documented as of this encounter Goals Goal Patient Goal Associated Recent Patient-Stated? Author Type Problems Progress DH Home Medication Patient On track No Ryan, Compliance and Facing (07/31/2016 Julia Esquivel Understanding Action Plan 9:07 AM EDT) [facility] Note: Formatting of this note might be d ifferent from the original. Patient Goal: To experience less side ef fects than his past regimen of Peg and Ribavirin Timeframe to meet goal: 3 months of ther apy documented as of this encounter Visit Diagnoses Diagnosis Neuropathic ulcer of toe of right foot w ith fat layer exposed s/p L 4th ray amp for osteo, 03/10/2020 Gitajn Neuropathic ulcer of foot, right, with f at layer exposed documented in this encounter Care Teams Management Accountant Relationship Specialty Start Date End Date Brian Fall APRN PCP - General Internal Medicine 04/07/[address] [place] [phone] documented as of this encounter
--- OUTSIDE RECORDS SUMMARY | 2021-11-30 08:19 | XMS_ITS | Encounter Summary ---
:1955 Author Organization [facility] [place] [address] Care Team Providers Name Role Phone Brian Fall APRN Primary Care Provider Reason for Visit Reason Comments Follow-up COPD Encounter Details Date Type Department Care Team Description 08/10/2020 Office Visit Pul[place]ology [place] [facility] Stiven Cervantes, Stage 2 moderate COPD by GOL D classification; [facility] MD Pulmonary nodule; [facility] Cigarette smoker; [place] [address] [address] [address] CUNHA (dyspnea on exertion) [phone] Pulmonary Medici ne [place], [place] [address] Social History Tobacco Use Types [...] Sign Reading Time Taken Comments Blood Pressure 170/72 08/10/2020 2:23 PM EDT Pulse 50 08/10/2020 2:23 PM EDT Temperature 36.8 ??C (98.2 ??F) 08/10/2020 2:23 PM EDT Respiratory Rate 16 08/10/2020 2:23 PM EDT Oxygen Saturation 92% 08/10/2020 2:23 PM EDT Inhaled Oxygen Concentration - - Weight 90.7 kg (200 lb) 08/10/2020 2:23 PM Given due to foot EDT Height 175.3 cm (5' 9) 08/10/2020 2:23 PM EDT Body Mass Index 29.53 08/10/2020 2:23 PM EDT documented in this encounter Progress Notes Stiven Cervantes MD - 08/10/2020 2:30 PM EDT [facility] Section of Pulmonary Medicine COPD Clinic Follow Up Date of Encounter: 08/10/2020 PCP: Brian Fall, [facility] [address] [place] [address] Reason for Visit: Follow up COPD Background: ?? GOLD 2 COPD ?? Smoker, has quit for short periods at a time in the past ?? Paraseptal emphysema and a large intraparenchymal 5cm LLL cyst ?? Chronic elevation of right hemidiaphragm - since at least 2012 Interval History: I last saw Mahin a couple of years ago and he returns to the clinic today for review of COPD. From a pulmonary symptom perspective pains are largely unchanged. Does have some mild dyspnea but has not really been walking around on doing much to get short of breath lately due to a metatarsal surgery late last year which I believe was done for a combination of vascular and infective issues. Continues to smoke a few cigarettes daily and has some cough that is productive of white or clear sputum but no exacerbations requiring prednisone or antibiotics. We reviewed the potential benefits of cessation and Mahin is working hard to quit. Continues to take Spiriva and Dulera with symptomatic benefit. Taking all sensible precautions during the Covid pandemic and understands the importance of Covid vaccination. Review of Systems: Weight stable Past Medical History: Past Medical History: Diagnosis Date ??? Cirrhosis Chronic HCV and history of alcohol use ??? COPD (chronic obstructive pulmonary disease) ??? Depression ??? GERD (gastroesophageal reflux disease) ??? Hepatitis C ??? HTN (hypertension) Past Surgical History: Past Surgical History: Procedure Laterality Date ??? PRO AMPUTATION FOOT, TRANSMETATARSAL Left 03/10/2020 AMPUTATION, TRANSMETATARSAL (WRVU 12.71) performed by Geovanna Lewis MD at [facility] MAIN OR ??? PRO TOTAL KNEE ARTHROPLASTY Left 12/13/2015 @TOTAL KNEE ARTHROPLASTY performed by Gordon Mallory MD at [facility] MAIN OR ??? PRO UPPER GI ENDOSCOPY, DIAGNOSTIC Bilateral 08/17/2015 EGD, UPPER GI ENDOSCOPY performed by Trev Hong MD at [facility] ENDOSCOPY ??? REVISION TOTAL HIP ARTHROPLASTY bilateral for hip AVN ??? SPINE SURGERY Medications: Current Outpatient Medications Medication Sig Dispense Refill ??? triamcinolone (KENALOG) 0.1 % Cream Apply twice daily to bilateral lower legs, times two weeks then off two week, repeat as needed. 30 g 0 ??? gabapentin (Neurontin) 300 mg Capsule [...] ??? furosemide (Lasix) 80 mg Tablet Take 20 mg by mouth as needed. ??? buspirone HCl [...] Take 1 tablet by mouth daily. ??? ondansetron ODT (Zofran-ODT) 8 mg Tablet, Rapid Dissolve dissolve 1 tablet ON TONGUE twice a dayif needed ??? predniSONE (Deltasone) 20 mg Tablet take 3 tablets by mouth every morning for 7 days ??? amoxicillin-clavulanate (Augmentin) 875-125 mg Tablet Take 1 tablet by mouth 2 times daily. (Patient not taking: Reported on 08/10/2020) 20 tablet 0 ??? memantine (Namenda) 5 mg Tablet take 1 tablet by mouth once daily FOR 1 WEEK THEN INCRESE TO 1 TABLET TWICE DAILY THEREAFTER ??? nicotine (NICODERM CQ) 21 mg/24 hr Patch 24 hr Change 1 patch on the skin daily. (Patient not taking: Reported on 08/10/2020) 28 patch 0 ??? QUEtiapine (SEROquel) 25 mg Tablet take 1 tablet by mouth twice a day if needed ??? citalopram (CELEXA) 20 mg Tablet Take 20 mg by mouth Daily. ??? ipratropium-albuterol (DUONEB) 0.5 mg-3 mg(2.5 mg base)/3 mL Solution for Nebulization Take 3 mLs by nebulization every 6 hours as needed. No current facility-administered medications for this visit. [...] Cigarettes ??? Smokeless tobacco: Never Used Substance and Sexual Activity ??? Alcohol use: [...] [place] 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 Pt has been exposed to wood dust. No TB Exposure. Pt currently has lived in his home for 30 years, hardwood floor, heated by oile, hot air. Pt has long haired dog. No VNA services at this time. Social Determinants of Health Financial Resource Strain: ??? Difficulty of Paying Living Expenses: Food Insecurity: ??? Worried About Running Out of Food in the Last Year: ??? Ran Out of Food in the Last Year: Transportation Needs: ??? Lack of Transportation (Medical): ??? Lack of Transportation (Non-Medical): Physical Activity: ??? Days of Exercise per Week: ??? Minutes of Exercise per Session: Stress: ??? Feeling of Stress : Social Connections: ??? Frequency of Communication with Friends and Family: ??? Frequency of Social Gatherings with Friends and Family: ??? Attends Latter Day Services: ??? Active Member of Clubs or Organizations: ??? Attends Club or Organization Meetings: ??? Marital Status: Intimate Partner Violence: ??? Fear of Current or Ex-Partner: ??? Emotionally Abused: ??? Physically Abused: ??? Sexually Abused: Family History: Family History Problem Relation Age of Onset ??? Cancer Father ??? Osteoarthritis Mother ??? Cancer Paternal Uncle ??? Cancer Paternal Grandmother Immunizations: Immunization History Administered Date(s) Administered ??? Hep A/Hep B 07/11/2009, 08/11/2009, 02/14/2010 ??? Influenza PF, Split 03/07/2011 ??? Influenza Vaccine, Whole 05/21/2007, 03/04/2008 ??? Pneumococcal Polyvalent 23 02/11/2012 ??? Tdap Vaccine 02/11/2012 Examination: BP 170/72 Pulse 50 Temp 36.8 ??C (98.2 ??F) (Temporal) Resp 16 Ht 175.3 cm (5' 9) Wt 90.7kg (200 lb) Comment: Given due to foot SpO2 92% BMI 29.53 kg/m?? General: Comfortable at rest HEENT: No [...] 03/14/2020 PLATELET 398 (H) 03/14/2020 A1AT gentoype: DC A1AT level: 126 Imaging: Available CXR and CT Chest images were viewed personally and reports were reviewed. I agree with theradiology reads. CXR 2019 IMPRESSION 1. Chronic appearing airways thickening and interstitial prominence, although superimposed acute pathology cannot be excluded. 2. Unexpected finding: RIGHT infrahilar 1 cm lung nodule. Recommend nonemergent CT for follow-up. Pulmonary Function Tests: PFT Results Office Visit from 05/15/2017 in Pulmonology at [facility] PFT Results FEV1 (L) 2.4 liters FEV1 (%) 76 FVC (L) 3.61 liters FVC (%) 85 FEF 25-75 (L) 1.15 FEF 25-75 (%) 45 FEV1/FVC (absolute) 0.66 FEV1/FVC (%) 89 % FEV1/FVC (%) 66.5 % Additional PFT Data (if needed) Uncorrected DLCO (ml/min/mm Hg) 16.86 DLCO (%) 63 % Oxygen saturation 93% on RA at rest and required 2 L/min of supplemental oxygen to keep sats > 88% during a 600 feet walk. Peak inspiratory flow rate testing revealed patient had adequate minimum inspiratory flow rates to effectively use MDI, HFA, Respimat and most dry powder inhalers but could not effectively use the Handihaler device. Cardiac Testing: Last EK - SR 60bpm - QTc 446 Last Echocardiogram: 2014 - Mild LVH, normal LV function, trivial MR and TR, mild pulmonary HTN Assessment: 1. COPD: GOLD stage 2 category D. This is moderate disease. 2. Smoker, has quit for short periods at a time in the past 3. Paraseptal emphysema and a large intraparenchymal 5cm LLL cyst 4. Chronic elevation of right hemidiaphragm - since at least 2012 5. 1cm infrahilar RIGHT pulmonary nodule on chest x-ray 2018 Overall Mahin is doing okay with his COPD with no significant pulmonary infections and only mild exertional dyspnea (he is limited more by musculoskeletal disease). I think his inhaled medications areappropriate and we discussed his sick plan as detailed below. Smoking cessation remains a priority and he will continue to work on this independently. I do think it is worth [facility] showed a significant pulmonary nodule. Mahin tells me he does not think he has had any follow-up imaging since then -limited at least in part due to the pandemic I ordered a CT scan of the chest to be done at [facility] and handed him the paper form. He knows to take this to [facility] shortly to arrange a date and time to get the scan done Plan: 1. Medications Daily: 1. Spiriva respimat 2 puffs once daily 2. Dulera twice daily via spacer As needed 1. Albuterol 2 puffs 2. Nebulized DuoNeb Remember the techniques Agatha showed you 2. Exacerbation prevention Avoid sick contacts, wash hands, wear mask as needed 3. Sick plan Prednisone 40mg for 5 days Azithromycin for 5 days Call our office for medications as needed 4. Sleep evaluation Deferred 5. Advanced directives 6. Smoking cessation Back smoking a few cigarettes 7. Pulmonary rehabilitation Practice pursed lip breathing and do home exercises as Agatha instructed 8. Oxygen Will explore if any more cost effective oxygen supplies are available 9. Immunizations Discuss again next visit 10. Lung cancer screening 11. LVRS / Transplant 12. Palliative care 13. A1AT Testing Genotype DC - does not qualify for replacement therapy 14. Other Follow up: ?? By phone with results of CT Chest ?? In one year in clinic Stiven Cervantes MD CT at [facility] documented in this encounter Plan of Treatment Upcoming Encounters Date Type Specialty Care Team Description 12/11/2021 Appointment Radiology 12/11/2021 Office Visit Orthopaedics Marion Tavera APRN [facility] DR ORTHOPAEDIC SURG [place], [place] [address] (Wo rk) 01/15/2022 Appointment Radiology Stiven Cervantes MD [facility] Pulmonary Medici [place], [place] [address] (Wo rk) Scheduled Procedures Name [...] Esquivel, Understanding Action Plan 9:07 AM EDT) [facility] Note: Formatting of this note might be d ifferent from the original. Patient Goal: To experience less side ef fects than his past regimen of Peg and Ribavirin Timeframe to meet goal: 3 months of ther apy documented as of this encounter Visit Diagnoses Diagnosis Stage 2 moderate COPD by GOLD classifica tion Pulmonary nodule Solitary pulmonary nodule Cigarette smoker Tobacco use disorder CUNHA (dyspnea on exertion) Other dyspnea and respiratory abnormalit y documented in this encounter Care Teams School Cafeteria Cook Head Relationship Specialty Start Date End Date Brian Fall APRN PCP - General Internal Medicine 04/07/[address] [place] [phone] documented as of this encounter
--- OUTSIDE RECORDS SUMMARY | 2021-11-30 08:19 | XMS_ITS | Encounter Summary ---
:1955 [place] [address] Care Team Providers Name Role Phone Brian Fall APRN Primary Care Provider Encounter Details Date Type Department Care Team Description 03/17/2020 Notes Only Infectious Disease a [place] [facility] [place] Stevenson MD [facility] [place] [phone] INFECTIOUS DISEASE [phone] [place], [place] [address] (Wo rk) Social History Tobacco [...] Office Visit Orthopaedics Marion Tavera APRN [facility] ORTHOPAEDIC SURG [place], [place] [address] (Wo rk) 01/15/2022 Appointment Radiology Stiven Cervantes MD [facility] Pulmonary Medici [place], [place] [address] (Wo rk) Scheduled Procedures Name [...] Esquivel, Understanding Action Plan 9:07 AM EDT) [facility] Note: Formatting of this note might be d ifferent from the original. 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
--- OUTSIDE RECORDS SUMMARY | 2021-11-30 08:19 | XMS_ITS | Encounter Summary ---
:1955 Author Organization [facility] [place] [address] Care Team Providers Name Role Phone Brian Fall APRN Primary Care Provider Encounter Details Date Type Department Care Team Description 03/24/2020 Hospital Encounter XRay at [facility] Robert Godwin MD s/p L 4th ray [address] [facility] 03/10/[address] [id number] [facility] [phone] [place] [address] Social History Tobacco Use Types Packs/Day Years [...] by 0 08/21/2012 (THERAGRAN) tablet mouth daily. metroNIDAZOLE (FlagyL) Take 1 tablet by 90 tablet 1 020 04/21/2020 500 mg Tablet mouth 3 times daily for 35 days. cefTRIAXone (ROCEPHIN) Inject 2,000 mg into 10 mL 0 10/201904/21/2020 1 gram Recon Soln the vein daily for 35 days. gabapentin (Neurontin) Take 2 capsules by 90 [...] Radiology 12/11/2021 Office Visit Orthopaedics Marion Tavera , BINDERY WORKER [facility] ORTHOPAEDIC SURG [place], [place] [address] (Wo rk) 01/15/2022 Appointment Radiology Stiven Cervantes MD [facility] Pulmonary Medici [place], [place] [address] (Wo rk) Scheduled Procedures Name [...] 9:07 AM EDT) [facility] Note: Formatting of this note might be d ifferent from the original. Patient Goal: To experience less side ef fects than his past regimen of Peg and Ribavirin Timeframe to meet goal: 3 months of ther apy documented as of this encounter Procedures Procedure Name Priority Date/Time Associated Diagnosis Comme nts XR FOOT MIN 3 VIEWS Routine 03/24/2020 9:44 AM s/p L 4th ray a mp Results for this LEFT EST for osteo, procedure are i n 03/10/2020 Gitajn the result s section. documented in this encounter Results XR Foot Min 3 views Left (Generic) (03/24/2020 9:44 AM EST) Anatomical Region Laterality Modality Foot Left Digital Radiography Specimen (Source) Anatomical Location Collection Method / Collectio n Time Received Time / Laterality Volume Impressions 03/24/2020 9:59 AM EST No change in the appearance of the foot. No acute process identified. Thank you for letting us participate in the care of this patient. For questions regarding this report, please contact e number below. ? Narrative 03/24/2020 9:59 AM EST EXAMINATION: XR FOOT MIN 3 VIEWS LEFT (GENERIC) CLINICAL HISTORY: s/p L 4th ray amp TECHNIQUE: AP, oblique and lateral of the left foot . COMPARISON: March 10, 2020 FINDINGS: A splint is present and obscures bone de tail. 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 There is no change in the appearance of the amputation sites. Procedure Note Asa Johnston MD - 03/24/2020 EXAMINATION: XR FOOT MIN 3 VIEWS LEFT (G ENERIC) CLINICAL HISTORY: s/p L 4th ray amp TECHNIQUE: AP, oblique and lateral of the left foot . COMPARISON: March 10, 2020 FINDINGS: A splint is present and obscures bone de tail. 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 There is no change in the appearance of the amputation sites. IMPRESSION No change in the appearance of the foot. No acute process identified. Thank you for letting us participate in the care of this patient. For questions regarding this report, please contact th e number below. Robert Grider MD IMG DX ORDERABLES documented in this encounter Visit Diagnoses Diagnosis s/p L 4th ray amp for osteo, 03/10/2020 Gitajn documented in this encounter Care Teams Mainspring Barrel Assembly Cleaner Relationship Specialty Start Date End Date Brian Fall APRN PCP - General Internal Medicine 04/07/[address] [place] [phone] documented as of this encounter
--- OUTSIDE RECORDS SUMMARY | 2021-11-30 08:19 | XMS_ITS | Encounter Summary ---
:1955 Author Organization [facility] [place] [address] Care Team Providers Name Role Phone Brian Fall APRN Primary Care Provider Encounter Details Date Type Department Care Team Description 06/05/2021 Interpretation Only [facility], Meggan, Lilyrip Hemphill MD [place], [place] [phone] [place], [place] [phone] Social History Tobacco Use Types Packs/Day Years [...] 12/11/2021 Office Visit Orthopaedics Marion Tavera APRN [facility] ORTHOPAEDIC SURG [place], [place] [address] (Wo rk) 01/15/2022 Appointment Radiology Stiven Cervantes MD [facility] Pulmonary Medici nelly [place], [place] [address] (Wo rk) Scheduled Procedures Name [...] Priority Date/Time Associated Diagnosis Comme nts US EXTREMITY VENOUS STAT 06/05/2021 2:58 PM Re sults for this DUPLEX EST procedure are i n the results section. documented in this encounter Results US EXTREMITY VENOUS DUPLEX (06/05/2021 2:58 PM EST) athologist Signature PT CLASS E RAD ADMITDTTM RAD PT [facility] INFO [id number]^C RAD HANDER^[place] R EXAM DESC UEXTDUP^[facility] RAD LEG VEINS UNI^RIS Anatomical Region Laterality Modality Other Specimen (Source) Anatomical Location Collection Method / Collectio n Time Received Time / Laterality Volume Impressions 06/05/2021 3:03 PM EST No left lower extremity DVT. Thank you for letting us participate in the care of this patient. ??If you are a health care provider and have any questi ons regarding this report, please contact the number below. ??For patients who have questions please contact the health landcare officer that requested your imaging first. ? Narrative 06/05/2021 3:03 PM EST EXAMINATION: US LEG VEINS UNI CLINICAL HISTORY: left leg swelling TECHNIQUE: Lower extremity venous color and spectral doppler ultrasound investigating the common femoral vein, g reater saphenous vein/femoral vein junction, deep femoral vein, superficial femoral vein, popliteal vein, PTV and peroneal veins of the calf, and the cont ralateral common femoral vein was peformed on the left. COMPARISON: None FINDINGS: There is normal compression, augmentatio n, color flow, and phasicity in all imaged vessels, with no thrombus. Procedure Note Kushal Pascual MD - 06/05/2021For matting of this note might be different from the original. EXAMINATION: US LEG VEINS UNI CLINICAL HISTORY: left leg swelling TECHNIQUE: Lower extremity venous color and spectral doppler ultrasound investigating the common femoral vein, g reater saphenous vein/femoral vein junction, deep femoral vein, superficial femoral vein, popliteal vein, PTV and peroneal veins of the calf, and the cont ralateral common femoral vein was peformed on the left. COMPARISON: None FINDINGS: There is normal compression, augmentatio n, color flow, and phasicity in all imaged vessels, with no thrombus. IMPRESSION No left lower extremity DVT. Thank you for letting us participate in the care of this patient. If you are a health care provider and have any questi ons regarding this report, please contact the number below. For patients w ho have questions please contact the health landcare officer that requested your imaging first. Meggan Vaca MD PACS IMAGES documented in this encounter Visit Diagnoses Not on filedocumented in this encounter Care Teams Weld Engineer Relationship Specialty Start Date End Date Brian Fall APRN PCP - General Internal Medicine 04/07/[address] [place] [phone] documented as of this encounter
--- OUTSIDE RECORDS SUMMARY | 2021-11-30 08:19 | XMS_ITS | Encounter Summary ---
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 Certification of Med ical Necessity Encounter Details Date Type Department Care Team Description 04/30/2021 Telephone [place] [facility] [place]ji Oxygen Dependence [facility] Jenni Jones ([place] [address] Sahil Beaver RN Medical Necessity) [phone] Social History Tobacco Use Types Packs/Day Years Used Date Current Every Day Smoker Cigars, Cigarettes 1 42 Smokeless Tobacco: Never Used Alcohol Use Standard Drinks/Week Comments Yes 22 (1 standard drink = 0.6 oz pure alcoh ol) Sex Assigned at Date Recorded Not on file documented as of this encounter Miscellaneous Notes Telephone Encounter - Karen Mendoza RN - 10/25/2021 10:08 AM EDT Faxed completed Oxygen Certification of Medical Necessity form, signed by Dr. Cervantes, to [employer]. This covered the following items: [id number] RR - Regulator O2 Stationary 0-8 LPM Fax submission confirmation time stamped for 04/30/2021 @ 1531. 2 pages with cover sheet. Copy of Certificate of Medical Necessity sent to scanning for inclusion to patient records. documented in this encounter Plan of Treatment Upcoming Encounters Date Type Specialty Care Team Description 12/11/2021 Appointment Radiology 12/11/2021 Office Visit Orthopaedics Marion Tavera APRN [facility] DR ORTHOPAEDIC SURG [place], [place] [address] (Wo rk) 01/15/2022 Appointment Radiology Stiven Cervantes MD [facility] er Pulmonary Medici [place], [place] [address] (Wo rk) Scheduled Procedures Name [...] Esquivel, Understanding Action Plan 9:07 AM EDT) [facility] Note: Formatting of this note might be d ifferent from the original. Patient Goal: To experience less side ef fects than his past regimen of Peg and Ribavirin Timeframe to meet goal: 3 months of ther apy documented as of this encounter Visit Diagnoses Not on filedocumented in this encounter Care Teams Tree Driller Relationship Specialty Start Date End Date Brian Fall APRN PCP - General Internal Medicine 04/07/[address] [place] [phone] documented as of this encounter
--- OUTSIDE RECORDS SUMMARY | 2021-11-30 08:19 | XMS_ITS | Encounter Summary ---
:1955 Author Organization [facility] [place] [address] Care Team Providers Name Role Phone Biran Fall APRN Primary Care Provider Encounter Details Date Type Department Care Team Description 05/16/2021 Hospital Encounter Laboratory [facility] [place] [address] Social History Tobacco Use Types Packs/Day [...] Sig Dispensed Refills Start Date End Date metoprolol succinate XL Take 50 mg by mouth 0 08/2020 (Toprol-XL) 50 mg Tablet daily. (In addition Sustained Release 24 hr 100mg tab, total dose: 150mg daily) pantoprazole EC Take 40 mg by mouth 0 (Protonix) 40 mg Tablet, 2 times daily. Delayed Release (E.C.) triamcinolone (KENALOG) Apply twice daily to 30 g 0 0.1 % Cream bilateral lower legs, times two weeks then [...] by mouth 0 07/25 (TOPROL-XL) 100 mg Tablet daily. (In addition Sustained Release 24 hr 50mg tab, total dose: 150mg daily) multivitamin (THERAGRAN) Take 1 tablet by 0 08/21 tablet mouth daily. Chantix Starting Month Take 1 tablet by 0 021 11/19/2021 Box 0.5 mg (11)- 1 mg mouth daily. (42) Tablets, Dose Pack donepeziL (Aricept) 10 mg Take 10 mg by mouth 0 0 06/18/2020 11/19/2021 Tablet daily. ondansetron ODT dissolve 1 tablet ON 0 07/27/2020 11/29/2021 (Zofran-ODT) 8 mg Tablet, TONGUE twice a day Rapid Dissolve if needed albuteroL 90 Inhale 2 puffs into 1 Inhaler 11 08/10/202010/2021 mcg/actuation HFA Aerosol the lungs every 4 InhalerIndications: Stage hours as needed for 2 moderate COPD by GOLD Wheezing. Use with classification spacer predniSONE (Deltasone) 20 take 3 tablets by 0 11/18/2021 mg Tablet mouth every morning for 7 days nicotine (NICODERM CQ) 21 Change 1 patch on 28 patch 0 08/201911/19/2021 mg/24 hr Patch 24 hr the skin daily. QUEtiapine (SEROquel) 25 take 1 tablet by 0 08/0811/18/2021 mg Tablet mouth twice a day if needed methadone HCl (METHADONE Take 90 mg by mouth 0 11/29/2021 ORAL) daily. SPIRIVA RESPIMAT 2.5 Take 1 puff by mouth 0 07/2211/19/2021 mcg/actuation Mist as needed. PROAIR HFA 90 Inhale 2 puffs into 0 07/21/2017 mcg/actuation HFA Aerosol the lungs every 6 Inhaler hours as needed. DULERA 100-5 inhale 2 puffs by 0 11/07/201511/19 mcg/actuation HFA Aerosol mouth prn Inhaler documented as of this encounter Plan of Treatment Upcoming Encounters Date Type Specialty Care Team Description 12/11/2021 Appointment Radiology 12/11/2021 Office Visit Orthopaedics Marion Tavera APRN [facility] ORTHOPAEDIC SURG [place] 0[address] (Wo rk) 01/15/2022 Appointment Radiology Stiven Cervantes MD [facility] Pulmonary Medici nelly [place], [place] [address] (Wo rk) Scheduled Procedures Name [...] Understanding Action Plan 9:07 AM EDT) [facility] Note: Formatting of this note might be d ifferent from the original. Patient Goal: To experience less side ef fects than his past regimen of Peg and Ribavirin Timeframe to meet goal: 3 months of ther apy documented as of this encounter Procedures Procedure Name Priority Date/Time Associated Diagnosis Comme nts ANAEROBIC CULTURE Routine 05/16/2021 9:07 PM Resu lts for this EST procedure are i n the results section. TISSUE CULTURE Routine 05/16/2021 9:07 PM Results for this EST procedure are i n the results section. SURGICAL PATHOLOGY Routine 05/16/2021 8:45 AM Res ults for this REPORT EST procedure are i n the results section. documented in this encounter Results (ABNORMAL) Anaerobic Culture (05/16/2021 9:07 PM EST) [facility] Method Time Signature Anaerobic Rare [place] Culture Bacteroides [place] fragilis Group [facility] Organism Bacteroides [place] fragilis [facility] LABORATORY Specimen Anatomical Collection Method Collection Time Receive d Time (Source) Location / / Volume Laterality Foot 05/16/2021 9:07 PM 9:07 EST PM EST Resulting Agency Comment Spec In Lab Brooks OJEDA MICROBIOLOGY - GENERAL ORDER SILAS Performing Organization Address [facility]/ZIP [place] [address] (ABNORMAL) Tissue culture (05/16/2021 9:07 PM EST) Component Value Ref Test Analysis Performed At [facility] Method Time Signature Tissue Staphylococcus aureus isolated from broth culture. [place] Culture No growth on original plates. [place] (A) [facility]ORY Gram Stain Moderate Neutrophils seen MAR Y No microorganisms seen. [facility] (A) [facility] Organism Staphylococcus [place] aureus (A) [facility] LABOR[facility]ORY Specimen Anatomical Collection Method Collection Time Receive d Time (Source) Location / / Volume Laterality Foot 05/16/2021 9:07 PM 9:07 EST PM EST Resulting Agency Comment Spec In Lab Organism Antibiotic Method Susceptibility Staphylococcus aureus Cefazolin VITEK 2 METHOD Sensitive Staphylococcus aureus Ceftriaxone VITEK 2 METHOD Sensitive Staphylococcus aureus Clindamycin VITEK 2 METHOD Sensitive Staphylococcus aureus Erythromycin VITEK 2 METHOD Sensitive Staphylococcus aureus Gentamicin VITEK 2 METHOD Sensitive Comment: Gentamicin is not a ppropriate for [place]-therapy. Staphylococcus aureus Oxacillin VITEK 2 METHOD Sensitive [...] Staphylococcus aureus Vancomycin VITEK 2 METHOD Sensitive Brooks OJEDA MICROBIOLOGY - GENERAL ORDER SILAS Performing Organization Address City/[facility]/ZIP [place] [address] Surgical Pathology Report (05/16/2021 8:45 AM EST) Component Value Ref Test Analysis Performed At [facility] Method Time Signature Surgical [id number] ? Location: [facility] Pathology [place] Report The signing pathologist has (i) examined the relevant preparation(s) for the [facility]IAL specimen(s) and (ii) rendered or confirmed the diagnosis(es) . HOSPITAL LABORATORY . ?Surgic al Pathology DIAGNOSIS A - Bone, right fourth metatarsal, excision: ??- Chronic osteomyelitis with relatively scant acute infla mmation, and ?extensive osteoclastic and osteoblastic activity with reactive bone ?formation and disorderly endochondral ossification. Electronically signed by: ?Kush DYSON, Harley Eason Verified: ??05/22/2021 11:20 ??Pathologist Performed at: ??-[facility] Dept. of Pathology, [place], [place] SPECIMEN(S) SUBMITTED A - Bone, right fourth metatarsal Report to: Brian Fall CLINICAL INFORMATION Osteomyelitis right fourth metatarsal SPECIMEN PROCESSING A - Labeled/Fixative: Bone-right fourth metatarsal, formalin . Quantity/Size: Two, 2.0 x 1.6 x 1.2 cm. Tissue Description: Aggregat e of irregular ring bone fragments with focal erythema. Sections/Processing: Blocks submitted for decalcification: A1-A3. Entirely submitted in 3 cassettes labeled A1-A3. ??jennifer Specimen (Source) Anatomical Collection Method Collection Time Re ceived Time Location / / Volume Laterality 05/16/2021 8:45 AM EST Brooks Thurston DPM PATHOLOGY/CYTOLOGY ORDERABLE S Performing Organization Address City/State/[place] [address] [facility] [address] documented in this encounter Visit Diagnoses Not on filedocumented in this encounter Care Teams Collar Setter Overlock Relationship Specialty Start Date End Date Brian Fall APRN PCP - General Internal Medicine 04/07/[address] [place] [phone] documented as of this encounter
--- OUTSIDE RECORDS SUMMARY | 2021-11-30 08:19 | XMS_ITS | Encounter Summary ---
:1955 Author Organization [facility] [place] [address] Care Team Providers Name Role Phone Brian Fall APRN Primary Care Provider Encounter Details Date Type Department Care Team Description 04/09/[address] [facility] [place], [place] [address] [facility] [phone] [place], [place] [phone] Social History Tobacco Use Types Packs/Day Years [...] 12/11/2021 Office Visit Orthopaedics Marion Tavera APRN [facility] ORTHOPAEDIC SURG [place], [place] [address] (Wo rk) 01/15/2022 Appointment Radiology Stiven Cervantes MD [facility] Pulmonary Medici nelly [place], [place] [address] (Wo rk) Scheduled Procedures Name [...] Esquivel, Understanding Action Plan 9:07 AM EDT) [facility] Note: Formatting of this note might be d ifferent from the original. Patient Goal: To experience less side ef fects than his past regimen of Peg and Ribavirin Timeframe to meet goal: 3 months of ther apy documented as of this encounter Procedures Procedure Name Priority Date/Time Associated Diagnosis Comme nts XR FOOT MIN 3 VIEWS Routine 04/09/2021 11:36 AM R esults for this BILAT EST procedure are i n the results section. documented in this encounter Results XR Foot Min 3 views Bilat (Generic) (04/09/2021 11:36 AM EST) P athologist Signature PT CLASS O RAD ADMITDTTM RAD PT RAD MD INFO [id number] RAD [place]^CHINO EXAM DESC [id number]^XR RAD RIGHT FOOT ROUTINE^RIS Anatomical Region Laterality Modality Foot Bilateral Radiographic Imaging Specimen (Source) Anatomical Location Collection Method / Collectio n Time Received Time / Laterality Volume Impressions 04/09/2021 1:06 PM EST 1. ??The reported ulcer is not identified with certainty. 2. ??No new focus of bone destruction or periostitis. Radiography is insensitive for detection of early bone infection 3. ??No soft tissue air. Thank you for letting us participate in the care of this patient. ??If you are a health care provider and have any questi ons regarding this report, please contact the number below. ??For patients who have questions please contact the health family member caretaker that requested your imaging first. ? Electronically signed by: Marina Quintero MD, [facility] ([phone]), at 04/09/2021 1:06 PM Narrative 04/09/2021 1:06 PM EST EXAMINATION: XR RIGHT FOOT ROUTINE CLINICAL HISTORY: Non-prs chronic ulce r oth prt right foot w fat layer exposed, , entered by ordering service TECHNIQUE: RIGHT foot, 3 views, weightbe aring COMPARISON: Radiographs, June 2020. FINDINGS: Bones Decreased bone mineralization. No periostitis or new fracture. Healed f racture deformity of 5 metatarsal redemonstrated. Joints 1 IP joint-unchanged persistent flexion, healed fracture deformity of first proximal phalangeal head and osteoarthro joselin. 1 tarsometatarsal joint-unchanged osteoa rthropathy with eccentric narrowed joint space, osteophyte formation and subchond ral sclerosis most pronounced at 2 TMT joint. Chopart to and naviculocuneiform joints- unchanged marginal osteophytes and mild eccentric joint space narrowing. 1 MTP joints-osteoarthropathy with osteo phyte formation, unchanged. Soft tissues Outset-the reported ulcer is not identif ied with certainty. No soft tissue air. The Achilles tendon appears diffusely th ick. Procedure Note Marina Quintero MD - 04/09/2021Formatt ing of this note might be different from the original. 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 FINDINGS: Bones Decreased bone mineralization. No periostitis or new fracture. Healed f racture deformity of 5 metatarsal redemonstrated. Joints 1 IP joint-unchanged persistent flexion, healed fracture deformity of first proximal phalangeal head and osteoarthro joselin. 1 tarsometatarsal joint-unchanged osteoa rthropathy with eccentric narrowed joint space, osteophyte formation and subchond ral sclerosis most pronounced at 2 TMT joint. Chopart to and naviculocuneiform joints- unchanged marginal osteophytes and mild eccentric joint space narrowing. 1 MTP joints-osteoarthropathy with osteo phyte formation, unchanged. Soft tissues Outset-the reported ulcer is not identif ied with certainty. No soft tissue air. The Achilles tendon appears diffusely th ick. IMPRESSION 1. The reported ulcer is not identified with certainty. 2. No new focus of bone destruction or p eriostitis. Radiography is insensitive for detection of early bone infection 3. No soft tissue air. Thank you for letting us participate in the care of this patient. If you are a health care provider and have any questi ons regarding this report, please contact the number below. For patients w ho have questions please contact the health family member caretaker that requested your imaging first. Electronically signed by: Marina Quintero MD, [facility] ([phone]), at 04/09/2021 1:06 PM Chino Thurston DPM IMG DX ORDERABLES documented in this encounter Visit Diagnoses Not on filedocumented in this encounter Care Teams Scrap Kettle Tender Relationship Specialty Start Date End Date Brian Fall APRN PCP - General Internal Medicine 04/07/[address] [place] [phone] documented as of this encounter
--- OUTSIDE RECORDS SUMMARY | 2021-11-30 08:19 | XMS_ITS | Encounter Summary ---
:1955 [place] [address] Care Team Providers Name Role Phone Brian Fall APRN Primary Care Provider Encounter Details Date Type Department Care Team Description 05/16/2020 Office Visit Wound Care at Leah Goldstein, Claritza ropathic ulcer of foot, right, with fat layer exposed; [facility] LISA Neuropathic ulcer of toe of right foot w ith fat layer exposed [facility] [address] [place] PLASTIC SURGERY [place] [phone] Social History Tobacco Use Types Packs/Day Years Used Date Current Every Day Smoker Cigars, Cigarettes 1 42 Smokeless Tobacco: Never Used Alcohol Use Standard Drinks/Week Comments Yes 22 (1 standard drink = 0.6 oz pure alcoh ol) Sex Assigned at Date Recorded Not on file documented as of this encounter Last Filed Vital Signs Vital Sign Reading Time Taken Comments Blood Pressure 160/81 05/16/2020 3:50 PM EST Pulse 61 05/16/2020 3:50 PM EST Temperature 36.8 ??C (98.2 ??F) 05/16/2020 3:50 PM EST Respiratory Rate 20 05/16/2020 3:50 PM EST Oxygen Saturation 91% 05/16/2020 3:50 PM EST Inhaled Oxygen Concentration - - Weight - - Height - - Body Mass Index - - documented in this encounter Progress Notes Leah Vega APRN - 05/16/2020 4:00 PM EST [facility] Progress Note Chief Complaint: Soledad Wahl is a 64 y.o. male returns for follow up ofa right foot wound. ?? HPI: He was seen by Infectious Disease on [...] up.?? He was last seen at the [facility] by (MANJIT) on 03/09 and sent [...] recent of right foot ?? Pertinent labs: Results for SOLEDAD WAHL ( ) as of 05/09/2020 08:50 ?? Ref. Range 03/09/2020 09:15 Hemoglobin A1C Latest Ref Range: 4.3 - 5.6 % 5.6 ?? ROS: Negative for constitutional symptoms Appetite: good Pain: denies Getting a PROMIS shoe fitting tomorrow PE: Vital Signs: BP 160/81 Pulse 61 Temp 36.8 ??C (98.2 ??F) (Oral) Resp 20 SpO2 91% Pleasant, 64 y.o., male , in NAD. Arrives with his . Mobility: independent Edema: none DP/PT pulses: + Venous stasis rash: none Odor: none Nails are long and thickened Wound Location Measurements today Previous Measurements 05/09 Wound bed Exudate [place] wound skin Right plantar foot 0.7 x 0.3 x < 0.1 cm 0.6 x 0.2 x < 0.1 cm Porters Neck, moist Small serous P[place] Neck, calloused, slightly macerated Unavailable photo Treatment: Cleansed wound with normal saline and gauze. Wound cleansed with VASHE wound cleanser 2% lidocaine jelly was applied to the area. Removed devitalized tissue, slough, clot, debris with #15 scalpel down to and including subcutaneoustissue < 20 sq cm. Bleeding: none 7 thickened toenails were trimmed today with nail nippers Dsg: applied mepilex Ag non-bordered foam with medipore tape to right plantar foot mepilex non-bordered foam and medipore tape to left amputation site Assessment/Plan: Soledad Wahl is a 64 y.o. 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 His left toe amputation site is healed. There is no sign of infection today. He is non-diabetic andwe discussed obtaining foot care from a medical case manager since he has neuropathy. Changed from iodosorb tomepilex Ag foam to maintain antimicrobial effect and for exudate management. The patient and his verbalized understanding of and agreement with the plan. Follow up: 2 weeks - lives far away Wound care instructions: Change dressing every 3 days or sooner for 50% or greater strike through drainage. 1. Remove old dressing. 2. Cleanse wound with wound cleanser or normal saline and gauze. 3. Apply skin prep to periwound skin. 4. Cover wound bed with Mepilex Ag border dressing OR Mepilex Ag non-bordered foam and secure with Medipore tape. 5. Secure edges of dressing with skin prep. documented in this encounter Plan of Treatment Upcoming Encounters Date Type Specialty Care Team Description 12/11/2021 Appointment Radiology 12/11/2021 Office Visit Orthopaedics Marion Tavera APRN [facility] ORTHOPAEDIC [place] [address] (Wo rk) 01/15/2022 Appointment Radiology Stiven Cervantes MD [facility] Pulmonary Medici nelly [place], [place] [address] (Wo rk) Scheduled Procedures Name [...] Esquivel, Understanding Action Plan 9:07 AM EDT) [facility] Note: Formatting of this note might be d ifferent from the original. Patient Goal: To experience less side ef fects than his past regimen of Peg and Ribavirin Timeframe to meet goal: 3 months of ther apy documented as of this encounter Visit Diagnoses Diagnosis Neuropathic ulcer of foot, right, with f at layer exposed Neuropathic ulcer of toe of right foot w ith fat layer exposed documented in this encounter Administered Medications Inactive Administered Medications - up to 3 most recent administrations Medication Order MAR Action Action Date Dose Rate Site lidocaine (XYLOCAINE) 2 % jelly Given 05/16/2020 4:10 PM EST Topical (Top), ONCE, On Fri05/16/20 at 1700, 1 dose documented in this encounter Care Teams Belt Cutter Relationship Specialty Start Date End Date Brian Fall APRN PCP - General Internal Medicine 04/07/[address] [place] [phone] documented as of this encounter
--- OUTSIDE RECORDS SUMMARY | 2021-11-30 08:19 | XMS_ITS | Encounter Summary ---
:1955 Author Organization [facility] [address] Care Team Providers Name Role Phone WillieBrian APRN Primary Care Provider Encounter Details Date Type Department Care Team Description 04/14/2020 Notes Only Infectious Disease a t [facility] Trisha Peres, [place] [phone] Social History Tobacco Use Types Packs/Day Years Used Date Current Every Day Smoker Cigars, Cigarettes 1 42 Smokeless Tobacco: Never Used Alcohol Use Standard Drinks/Week Comments Yes 24 (1 standard drink = 0.6 oz pure alcoh ol) Sex Assigned at Date Recorded Not on file documented as of this encounter Progress Notes Trisha Peres, RN - 04/14/2020 11:15 AM EST WBC/ANC results decreased from the results on 04/10. The most recent results reflect the results from 04/03. MD River Stevenson and MD Viky Rdz were made aware of the most recent lab results via email. The lab result report from [facility] has been faxed to Medical Records at [facility] to be scanned into the patient chart. documented in this encounter Plan of Treatment Upcoming Encounters Date Type Specialty Care Team Description 12/11/2021 Appointment Radiology 12/11/2021 Office Visit Orthopaedics Marion Tavera APRN [facility] DR ORTHOPAEDIC SURG [place], [place] [address] (Wo rk) 01/15/2022 Appointment Radiology Stiven Cervantes MD [facility] er Dr Carlos Dumont [place], [place] [address] (Wo rk) Scheduled Procedures Name [...] Action Plan 9:07 AM EDT) [facility] Note: Formatting of this note might be d ifferent from the original. Patient Goal: To experience less side ef fects than his past regimen of Peg and Ribavirin Timeframe to meet goal: 3 months of ther apy documented as of this encounter Visit Diagnoses Not on filedocumented in this encounter Care Teams Crown Assembly Machine Set Up Mechanic Relationship Specialty Start Date End Date Brian Fall APRN PCP - General Internal Medicine 04/07/19 [address] [place] [phone] documented as of this encounter
--- OUTSIDE RECORDS SUMMARY | 2021-11-30 08:19 | XMS_ITS | Encounter Summary ---
:1955 Author Organization [facility] Address [facility] [place] [address] Care Team Providers Name Role Phone Juan David Brian GONZALEZ Primary Care Provider Encounter Details Date Type Department Care Team Description 03/14/2020 Notes Only Infectious Disease a t [facility] Lexii Rodriguez [facility] [place] [phone] Social History Tobacco Use Types Packs/Day Years Used Date Current Every Day Smoker Cigars, Cigarettes 1 42 Smokeless Tobacco: Never Used Alcohol Use Standard Drinks/Week Comments Yes 24 (1 standard drink = 0.6 oz pure alcoh ol) Sex Assigned at Date Recorded Not on file documented as of this encounter Progress Notes Leixi Rodriguez RN - 03/14/2020 1:14 PM EST Infectious Disease/OPAT Program Teaching Visit Met with patient and at bedside to discuss discharge on IV ABX. They have done IV ABX at home before, last time delivery method was via Elastomeric ball, this time will be via IV push. They have one dog at home that they will have in another room whilst administrating IV ABX. Patient given and reviewed OPAT package including OPAT order, PICC line care including dressing changes weekly & prn, weekly & prn labs, potential issues, what they might mean and who to contact. Reviewed roles and responsibilities of RPG PROGRAMMER and infusion vendor. Contact information for ID and orthopedics team/clinic, RPG PROGRAMMER and infusion vendor given to pt. Discussed f/u appointments in ID 5C clinic, telephone and tele health. Pt verbalized understanding. All questions answered. RPG PROGRAMMER: [facility] Infusion vendor: NEST[facility]IE IV Access: PICC Placed: to be placed this afternoon Plan: discharge on OPAT program when medically ready. F/u: 04/03: ID JE Peguero 04/21: ID Dr. Page Beaver. JACQUI Rodriguez, RN, ACM-RN OPAT Program documented in this encounter Plan of Treatment Upcoming Encounters Date Type Specialty Care Team Description 12/11/2021 Appointment Radiology 12/11/2021 Office Visit Orthopaedics Marion Tavera APRN [facility] DR ORTHOPAEDIC SURG [place], [place] [address] (Wo rk) 01/15/2022 Appointment Radiology Stiven Cervantes MD [facility] Pulmonary Medici [place], [place] [address] (Wo rk) Scheduled Procedures Name [...] Action Plan 9:07 AM EDT) [facility] Note: Formatting of this note might be d ifferent from the original. Patient Goal: To experience less side ef fects than his past regimen of Peg and Ribavirin Timeframe to meet goal: 3 months of ther apy documented as of this encounter Visit Diagnoses Not on filedocumented in this encounter Care Teams Cloth Shrinking Machine Operator Helper Relationship Specialty Start Date End Date Brian Fall APRN PCP - General Internal Medicine 04/07/[address] [place] [phone] documented as of this encounter
--- OUTSIDE RECORDS SUMMARY | 2021-11-30 08:19 | XMS_ITS | Encounter Summary ---
:1955 Author Organization [facility] Address [address] [place] [address] Care Team Providers Name Role Phone Brian [...] multocida River Stevenson, River Stevenson MD MD [facility] [address] FLORES INFECTIOUS DISEASE [place] [address] [place] [address] Fax: Referral ID Status Reason Start Date Expiration Date Visits V isits Requested Authorized [id number] Closed Assume 03/13/2020 03/13/2021 1 1 Subset of Care Encounter Details Date Type Department Care Team Description 04/21/2020 Office Visit Infectious Disease at [facility] erm (current) use of antibiotics; [facility] MD Page Osteomyelitis, unspecified site, unspeci fied type [facility] [address] [place] [address] [place] [address] [phone] Social History Tobacco Use Types Packs/Day Years Used Date Current Every Day Smoker Cigars, Cigarettes 1 42 Smokeless Tobacco: Never Used Alcohol Use Standard Drinks/Week Comments Yes 22 (1 standard drink = 0.6 oz pure alcoh ol) Sex Assigned at Date Recorded Not on file documented as of this encounter Last Filed Vital Signs Vital Sign Reading Time Taken Comments Blood Pressure 188/93 04/21/2020 10:42 AM EST Pulse 60 04/21/2020 10:42 AM EST Temperature 36.6 ??C (97.8 ??F) 04/21/2020 10:42 AM EST Respiratory Rate 20 04/21/2020 10:42 AM EST Oxygen Saturation 96% 04/21/2020 10:42 AM EST Inhaled Oxygen - - Concentration Weight 98.4 kg (216 lb 14.4 04/21/2020 10:42 hasn't chicho en Lasix in oz) AM EST a week as ran ou t Height 175.3 cm (5' 9) 04/21/2020 10:42 AM EST Body Mass Index 32.03 04/21/2020 10:42 AM EST documented in this encounter Progress Notes Page Rdz MD - 04/21/2020 11:00 AM EST Images from the original note were not included. 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 male bilateral foot ulcers, hepatitis C??s/p Epclusa 2016, cirrhosis, peripheral neuropathy, COPD, tobacco use, and prior osteomyelitis of the left??5th??toe 01/2019 s/p amputation, who presented to ED from [facility],03/09/2020, for concerns for worsening foot ulcer and possible osteomyelitis. He was previously follow-up in wound care clinic for his chronic ulcers.On visit with Orthopaedics 03/09/2020, his foot was noted to be increasingly erythematous and he was referred to ED for further imaging and IV antibiotics. MRI obtained 03/09/2020 was significantfor 5th MTP jt dorsally subluxed. 4th metatarsal head ulceration noted to extend to bone as well as a 2X1.5x1 cm gas containing fluid collection in dorsal aspect of 4th MTP jt with open communication to the MTP jt. Patient hospitalized at 03/09 - 03/14/2020 and underwent 4th ray transmetatarsal amputation 03/10/2020. Cultures grew multiple organisms including S.Milleri, pasteurella, Prevotella and B fragilis which felt to be the hansen pathogens here. They were also Jesika albicans, E faecalis and coagulase-negative staph discovered from the culture as well but felt to be nonsignificant. He was discharged on ceftriaxone and Flagyl to complete 6 weeks of antibiotics [anticipated end date on 04/21]. Patient has been discharged on OPAT and has been doing well. He was seen at our clinic today accompanied by his . His wound on the left foot has been healing well. His has been helping with dressing changes. He just ran out of Lasix that helps with his legs swelling and his has been requested for refill. He has mild redness on bilateral lower legs which seems to be chronic. The noticed that his wound on the plantar surface of the right foot seems to be slightly worse. He has neuropathy and denies any pain when he bearing weight on the right foot. Patient denies fevers, chills. There was no drainage on the right foot. He was last seen by Ortho in the beginning of this week and was referred to wound care. He has been tolerating ceftriaxone and Flagyl well with anticipated end date today. There is no issue with PICC line. He reports of diarrhea on and off but not significant. ROS: 14 point ROS (-) except as above Pertinent Medications: Ceftriaxone 2 g IV daily and Flagyl 500 mg p.o. 3 times daily Physical Examination: General appearance: Patient is alert oriented x3. No acute distress. Appropriate mood and affect. HEENT: No dry lip. normal oral mucosa. Lungs: Clear to auscultation bilaterally. no wheezing.no crackles.good lungs expansion. Heart: Normal S1-S2. no rubs or gallops. no murmurs. Abdomen: Nontender .no guarding. no rigidity. bowel sounds positive. Extremities: No pitting edema. Neuro: No focal neurological deficit. cranial nerves grossly intact. gait was not evaluated. Labs: 04/19/[address] [facility] WBC 12.2, creatinine 0.71, normal liver function test, CRP 0.8 mg/dL Assessment/Plan: Mahin Ramos is a 64 y.o. male bilateral foot ulcers, hepatitis C??s/p Epclusa 2017, cirrhosis, peripheral neuropathy, COPD, tobacco use, and prior osteomyelitis of the left??5th??toe 01/2019 s/p amputation, who presented to our clinic today for a OPAT follow-up after discharge for osteomyelitis of the left 4th toe s/p fourth ray transmetatarsal amputation on 03/10/2020. Culture grew multiple organism including S.Milleri, pasteurella, Prevotella and B fragilis which felt to be the hansen pathogens here. They were also Jesika albicans, E faecalis and coagulase-negative staph discovered from the culture as well but felt to be nonsignificant. He was discharged on ceftriaxone and Flagyl to complete 6 weeks of antibiotics [anticipated end date on 04/21]. He has been doing well and tolerating antibiotics. Denies fevers or chills. Mild symptoms of diarrhea which comes and goes. His legs has been swelling after he ran all of Lasix. There is also an ulcer on the plantar surface on the right foot which seems to be slightly worsened per . His last labs show WBC of 12.2, CRP of 0.8 mg/dL. The exam show good wound healing on the left foot post surgery. There was dry scab at the plantar surface of the right foot. Both feet were mild erythema but no pain,no area of fluctuation, and no drainage. He should continue to have wound care and close monitoring of the wound on the right foot. Since he has been doing well with normalizing of CRP, at this point, there is no indication to continue on his antibiotic. We will remove PICC line today in our clinic. Should consider to continue Lasix to help decrease the leg swelling. The will contact primary care for refill. Recommendations: -Stop ceftriaxone and Flagyl -PICC line removed -Wound care follow-up Page Rdz MD Pager: [phone] 04/22/2020 6:05 AM Plan discussed with Dr. Spencer. This note was created using [employer] voice recognition software. Judit Spencer DO - 04/21/2020 11:00 AM EST I have seen the patient and reviewed the history and physical and I agree with the details as written by Dr Rdz. The assessment and plan were formulated in discussion with me and I agree with them as documented. Right 4th toe polymicrobial osteomyelitis s/p TMA [...] concerns, otherwise no need for ID follow up. Judit Spencer DO, MPH Infectious Disease documented in this encounter Plan of Treatment Upcoming Encounters Date Type Specialty Care Team Description 12/11/2021 Appointment Radiology 12/11/2021 Office Visit Orthopaedics Marion Tavera APRN [facility]TH[facility] [place], [place] [address] (Wo rk) 01/15/2022 Appointment Radiology Stiven Cervantes MD [facility] Pulmonary Medici [place], [place] [address] (Wo rk) Scheduled Procedures Name Priority Associated Diagnoses Date/Time DEBRIDEMENT SKIN, SUBCU, MUSCLE, R great toe amp utation, wound LOWER EXTREMITY (WRVU 2.7) closure MODIFIER WOUND VAC R great toe amputation, wound closure Scheduled Referrals Name Type Priority Associated Diagnoses Order S chedule OPAT: Order / Outpatient Routine Osteomyelitis Ordered: Recommendation for Referral s/p L 4th ray amp for 03/13/2020 Post Discharge IV osteo, 03/10/2020 Antibiotic Management Gitajn Bacteroides fragilis infection Infection due to species of Streptococcus milleri group Infection by Pasteurella multocida documented as of this encounter Goals Goal Patient Goal Associated Recent Patient-Stated? Author Type Problems Progress DH Home Medication Patient On track No Ryan, Compliance and Facing (07/31/2016 Julia Esquivel, Understanding Action Plan 9:07 AM EDT) [facility] Note: Formatting of this note might be d ifferent from the original. Patient Goal: To experience less side ef fects than his past regimen of Peg and Ribavirin Timeframe to meet goal: 3 months of ther apy documented as of this encounter Visit Diagnoses Diagnosis manager terminal (current) use of antibiotics Osteomyelitis, unspecified site, unspeci fied type documented in this encounter Care Teams Game Master Relationship Specialty Start Date End Date Brian Fall APRN PCP - General Internal Medicine 04/07/19 [address] [place] [address] documented as of this encounter
--- OUTSIDE RECORDS SUMMARY | 2021-11-30 08:19 | XMS_ITS | Encounter Summary ---
:1955 Author Organization [facility] [place] [address] Care Team Providers Name Role Phone Brian Fall APRN Primary Care Provider Reason for Visit Reason Onset Date Comments Oxygen Dependence 10/24/2020 Certificate of Medic al Necessity Encounter Details Date Type Department Care Team Description 10/24/2020 Telephone [place] [facility] [place] Oxygen Dependence [facility] Jenni Jones ([place] [address] S, RN Necessity) [phone] Social History Tobacco Use Types Packs/Day Years Used Date Current Every Day Smoker Cigars, Cigarettes 1 42 Smokeless Tobacco: Never Used Alcohol Use Standard Drinks/Week Comments Yes 22 (1 standard drink = 0.6 oz pure alcoh ol) Sex Assigned at Date Recorded Not on file documented as of this encounter Miscellaneous Notes Telephone Encounter - Karen Mendoza RN - 10/24/2020 12:56 PM EDT Faxed completed Certificate of Medical Necessity for Oxygen, signed by Dr. Cervantes, to [employer]. This covered the following items: E1390 - Concentrator 5LPM W/ O2 Sen Port K0738 - Transfill O2 Unit E0424 - Regulator O2 Stationary 0-8 LPM. Fax submission confirmation time stamped for 10/24/2020 @ 1850. 4 pages with cover sheet. Copy of Certificate of Medical Necessity sent to scanning for inclusion to patient records. documented in this encounter Plan of Treatment Upcoming Encounters Date Type Specialty Care Team Description 12/11/2021 Appointment Radiology 12/11/2021 Office Visit Orthopaedics Marion Tavera APRN [facility] ORTHOP[facility]EDIC SUR[facility] [place], [place] [address] (Wo rk) 01/15/2022 Appointment Radiology Stiven Cervantes MD [facility] Pulmonary Medici [place], [place] [address] (Wo rk) Scheduled Procedures Name [...] Esquivel Understanding Action Plan 9:07 AM EDT) [facility] Note: Formatting of this note might be d ifferent from the original. Patient Goal: To experience less side ef fects than his past regimen of Peg and Ribavirin Timeframe to meet goal: 3 months of ther apy documented as of this encounter Visit Diagnoses Not on filedocumented in this encounter Care Teams Plate Straightener Relationship Specialty Start Date End Date Brian Fall APRN PCP - General Internal Medicine 04/07/[address] [place] [phone] documented as of this encounter
--- OUTSIDE RECORDS SUMMARY | 2021-11-30 08:19 | XMS_ITS | Encounter Summary ---
:1955 Author Organization [facility] [place] [address] Care Team Providers Name Role Phone Brian Fall APRN Primary Care Provider Encounter Details Date Type Department Care Team Description 03/12/2021 Interpretation Only [facility] Ramos Obrien Jr., [address] [place], [place] [address] [address] [place], [place] [phone] (Wo rk) Social History Tobacco Use Types [...] rk) 01/15/2022 Appointment Radiology Stiven Cervantes MD [facility] Pulmonary Mediccharlie villegas [place], [place] [address] (Wo rk) Scheduled Procedures Name [...] Comme nts XR CHEST ONE VIEW STAT 03/12/2021 11:56 AM Res ults for this EDT procedure are i n the results section. documented in this encounter Results XR Chest One View (03/12/2021 11:56 AM EDT) athologist Signature PT CLASS E RAD ADMITDTTM RAD PT [facility] INFO [id number]^B RAD ROWN^RAMOS^ A EXAM DESC XCXR1^XR RAD CHEST 1 VIEW^RIS Anatomical Region Laterality Modality Chest N/A Radiographic Imaging Specimen (Source) Anatomical Location Collection Method / Collectio n Time Received Time / Laterality Volume Impressions 03/12/2021 1:21 PM EDT No acute cardiopulmonary pathology detected Thank you for letting us participate in the care of this patient. ??If you are a health care provider and have any questi ons regarding this report, please contact the number below. ??For patients who have questions please contact the health care associate that requested your imaging first. ? Narrative 03/12/2021 1:21 PM EDT EXAMINATION: XR CHEST 1 VIEW CLINICAL HISTORY: COPD TECHNIQUE: Frontal radiograph of the chest COMPARISON: May 26, 2019 FINDINGS: Persistently elevated right hemidiaphrag m. Reticulonodular prominence of pulmonary markings, consistent with emph ysema. No focal airspace opacities detected. No pneumothorax. Procedure Note Kushal Pascual MD - 03/12/2021For matting of this note might be different from the original. EXAMINATION: XR CHEST 1 VIEW CLINICAL HISTORY: COPD TECHNIQUE: Frontal radiograph of the chest COMPARISON: May 26, 2019 FINDINGS: Persistently elevated right hemidiaphrag m. Reticulonodular prominence of pulmonary markings, consistent with emph ysema. No focal airspace opacities detected. No pneumothorax. IMPRESSION No acute cardiopulmonary pathology detec lul Thank you for letting us participate in the care of this patient. If you are a health care provider and have any questi ons regarding this report, please contact the number below. For patients w ho have questions please contact the health care associate that requested your imaging first. Electronically signed by: Kushal geiger MD, [facility] ([phone]), at 03/12/2021 1:21 PM Ramos Obrien Jr., DO IMG DX ORDERABLES documented in this encounter Visit Diagnoses Not on filedocumented in this encounter Care Teams Sugar Sampler Relationship Specialty Start Date End Date Brian Fall APRN PCP - General Internal Medicine 04/07/[address] [place] [phone] documented as of this encounter
--- OUTSIDE RECORDS SUMMARY | 2021-11-30 08:19 | XMS_ITS | Encounter Summary ---
:1955 [place] [address] Care Team Providers Name Role Phone Brian Fall APRN Primary Care Provider Reason for Visit Consultation (Routine) - Closed Specialty Diagnoses / Procedures Referred By Contact Refer red To Contact Wound Care Diagnoses received via fax/Onbase R foot ulcer Brian Fall APRN [facility] [address] [place] [address] [place] [address] Phone: Referral ID Status Reason Start Date Expiration Date Visits Requ ested Visits Authorized [id number] Closed 05/02/2020 05/02/2021 1 1 Encounter Details Date Type Department Care Team Description 05/09/2020 Office Visit Wound Care at Leah Goldstein, Claritza ropathic ulcer of [facility] foot, right, with fat [facility] layer exposed [facility] [address] Odell PLASTIC SURGERY [place], [place] [id number] [phone] Social History Tobacco Use Types Packs/Day Years Used Date Current Every Day Smoker Cigars, Cigarettes 1 42 Smokeless Tobacco: Never Used Alcohol Use Standard Drinks/Week Comments Yes 22 (1 standard drink = 0.6 oz pure alcoh ol) Sex Assigned at Date Recorded Not on file documented as of this encounter Last Filed Vital Signs Vital Sign Reading Time Taken Comments Blood Pressure - - Pulse 82 05/09/2020 11:11 AM EST Temperature - - Respiratory Rate 16 05/09/2020 11:11 AM EST Oxygen Saturation 95% 05/09/2020 11:11 AM EST Inhaled Oxygen Concentration - - Weight - - Height - - Body Mass Index - - documented in this encounter Patient Instructions Patient InstructionsWhLeah zendejas APRN - 05/09/2020 11:15 AM EST Wound care instructions: Change dressing every 3 days or sooner for 50% or greater strike through drainage. 1. Remove old dressing. 2. Cleanser wound bed with wound cleanser or normal saline and gauze. 3. Apply skin prep to periwound skin. 4. Apply 1/8 - 1/4 inch thickness of Iodosorb gel to wound bed(s). 5. Cover wound bed(s) with Mepilex non-bordered foam and Medipore tape OR Mepilex border dressing ORsimilar. 6. Secure edges with skin prep. Please report to the Emergency Department if you develop signs/symptoms of infection, this may include the following: Fever Sweats Chills Nausea, Vomiting or Diarrhea: general malaise Spiking Blood Glucose levels, unprovoked Around the wound site: Redness Warmth Purulent drainage Malodor documented in this encounter Progress Notes Leah Vega APRN - 05/09/2020 11:15 AM EST Images from the original note were not included. [facility] Initial Consultation Note Reason for Visit: Soledad Wahl is a 64 y.o. male referred by Julia Selby for evaluation of a right foot wound. HPI: He was seen by Infectious Disease [...] otherwise no need for ID follow up. He was last seen at the [facility] by (MANJIT) on 03/09 and sent to the Emergency Department for concern overhis left foot. He is wearing a Mepilex border to the right plantar foot as recommended by inpatient wound care during his admission for the left TMA on 03/10. He has been going barefoot in the home. The medical history and recent labs were reviewed prior to the patient's appointment. VNA: none Patient Active Problem List Diagnosis Code ??? Alcohol dependence F10.20 ??? 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 ADHD NOS F90.9 ??? Chronic back pain M54.9, G89.29 ??? Major depressive disorder, single episode, unspecified F32.9 ??? Hepatitis C B19.20 ??? Confusion R41.0 ??? Community acquired pneumonia J18.9 ??? Imbalance R26.89 ??? 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 Polysubstance abuse F19.10 ??? Ankle fracture, left S82.892A ??? Cirrhosis K74.60 ??? S/P L TKA 12/13/15 Dr. Mallory Z96.659 ??? 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 Pain in left shoulder M25.512 ??? SDH (subdural hematoma) S06.5X9A ??? Neuropathic ulcer of foot, left, with fat layer exposed L97.522 ??? Neuropathic ulcer of foot, right, with fat layer exposed L97.512 ??? Cellulitis of leg, right L03.115 ??? Neuropathic ulcer of toe of right foot with fat layer exposed L97.512 ??? Osteomyelitis M86.9 ??? s/p L 4th ray amp for osteo, 03/10/2020 Gitajn Z89.422 Social History Socioeconomic History ??? Marital status: Spouse name: Not on file ??? Number of children: Not on file ??? Years of education: Not on file ??? Highest education level: Not on file Occupational History ??? Not on file Social Needs ??? Financial resource strain: Not on file ??? Food insecurity Worry: Not on file Inability: Not on file ??? Transportation needs Medical: Not on file Non-medical: Not on file Tobacco Use ??? Smoking [...] Sexual activity: Not on file Comment: deferred Lifestyle ??? Physical activity Days per week: Not on file Minutes per session: Not on file ??? Stress: Not on file Relationships ??? Social connections Talks on phone: Not on file Gets together: Not on file Attends hinduism service: Not on file Active member of club or organization: Not on file Attends meetings of clubs or organizations: Not on file Relationship status: Not on file ??? Intimate partner violence Fear of current or ex partner: Not on file Emotionally abused: Not on file Physically abused: Not on file Forced sexual activity: Not on file Other Topics Concern ??? Not on file Social History [place] 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 Pt has been exposed to wood dust. No TB Exposure. Pt currently has lived in his home for 30 years, hardwood floor, heated by oile, hot air. Pt has long haired dog. No VNA services at this time. Social History: , lives with his , son and grand daughter; 1 ppd smoker, does not wish toquit or cut down Diagnostics: DONTAE's: 10/25/19: Right ?Pressure (mmHg) ?? DONTAE ??Waveform ?? TCPO2 ?? Brachial Artery ?167 ? Common Femoral Artery ? Triphasic ? Pop Fossa ? Triphasic ? Dorsalis Pedis (Ankle) Artery ?180 ?1.08 ??Triphasic ? Posterior Tibial (Ankle) Artery ??168 ?1.01 ??Triphasic ? 10 cm Above Knee ?34 ?? 15 cm Below Knee ?28 ?? ForeFoot ?17 ? Left ? Pressure (mmHg) ?? DONTAE ??Waveform ?? TCPO2 ?? Brachial Artery ?163 ? Common Femoral Artery ? Triphasic ? Pop Fossa ? Triphasic ? Dorsalis Pedis (Ankle) Artery ?169 ?1.01 ??Triphasic ? Posterior Tibial (Ankle) Artery ??173 ?1.04 ??Triphasic ? Chest ? 45 ?? 10 cm Above Knee ?40 ?? 15 cm Below Knee ?42 ?? ForeFoot ?26 ? Interpretation: ?? RIGHT: No significant lower extremity arterial occlusive disease identifiable at rest. Normal ankle/brachial pressure ratios and ankle Doppler waveforms. ?? LEFT: No significant lower extremity arterial occlusive disease identifiable at rest. Normal ankle/brachial pressure ratios and ankle Doppler waveforms. ?? Imaging: none recent of right foot Pertinent labs: Results for SOLEDAD WAHL ( ) as of 05/09/2020 08:50 Ref. Range 03/09/2020 09:15 Hemoglobin A1C Latest Ref Range: 4.3 - 5.6 % 5.6 Review Of Systems: Denies constitutional symptoms of fever, chills, sweats, fatigue. Neuro: denies GARCIA, dizziness CV: Denies CP, SOB GI: denies N/V, diarrhea : Denies voiding issues Diet: appetite good Wound care: band aid Leg fatigue, calf cramping, skin itching: denies Neuropathy: present - no diabetes Pain: denies Going barefoot in the house; has custom shoes from [employer] in [place] PE: Vitals: Pulse 82 Resp 16 SpO2 95% Estimated body mass index is 32.03 kg/m?? as calculated from the following: Height as of 04/21/20: 175.3 cm (5' 9). Weight as of 04/21/20: 98.4 kg (216 lb 14.4 oz). General: pleasant, in NAD Mobility: independent Edema: none DP, PT pulses + - BLE Callus:right plantar Nails: long, non-dystrophic 5.07 filament Drayton Nora monofilament exam: Odor: slight right foot ulcer Left TMA sites healed Right Calf: 41.5 cm Right Ankle: 25 cm Left Calf: 40.5 cm Left Ankle: 26 cm Length: floor to pretibia -not measured Wound Location Measurements today Tunneling/undermining Wound bed Exudate Glenna wound skin Right plantar foot 0.6 x 0.2 x < 0.1 cm none [place], moist Serous, scant Macerated, calloused PHOTOS taken today: Left dorsal foot Left plantar Right plantar Wound treatment: Wound Location: Cleansed wound with NS / Wound cleansed with VASHE wound cleanser Conservative sharp debridement of necrotic, devitalized tissue on wound bed with curette, #15 scalpel, forceps down to and including subcutaneous tissue <20 sq cm. Bleeding easily resolved with normal saline Patient tolerated treatment well. Dressing: Iodosorb gel, mepilex non-bordered foam, medipore tape Assessment/ Plan: Soledad Wahl is a 64 y.o. male with a neuropathic ulcer over the right plantar foot and a healed left TMA site from 03/10/20. There is no sign of infection. He is a 1 ppd smoker andwe discussed the negative effects of nicotine on wound healing. He does not wish to quit or cut downat this time. He is going barefoot at home and wearing slippers outside. We discussed wearing his custom shoes from [employer]. We also discussed contacting [facility] to have his insoles revised, as the shoes were made just prior to his amputation. iodosorb for antimicrobial and exudate management properties. The patient verbalized understanding of and agreement with the plan. Verbal and written wound care instructions were provided. The patient will call with any questions or concerns. Wound care supplies ordered. Done rjw Follow up: Weekly Wound care Instructions: Change dressing every 3 days or sooner for 50% or greater strike through drainage. 1. Remove old dressing. 2. Cleanser wound bed with wound cleanser or normal saline and gauze. 3. Apply skin prep to periwound skin. 4. Apply 1/8 - 1/4 inch thickness of Iodosorb gel to wound bed(s). 5. Cover wound bed(s) with Mepilex non-bordered foam and Medipore tape OR Mepilex border dressing ORsimilar. 6. Secure edges with skin prep. Please report to the Emergency Department if you develop signs/symptoms of infection, this may include the following: Fever Sweats Chills Nausea, Vomiting or Diarrhea: general malaise Spiking Blood Glucose levels, unprovoked Around the wound site: Redness Warmth Purulent drainage Malodor Cc: Brian Fall APRN [address] [place] [address] PCP: Brian Fall APRN Anusha Rebollar LPN - 05/09/2020 11:15 AM EST Supplies ordered from [place] [id number] Anusha Rebollar LPN documented in this encounter Plan of Treatment Upcoming Encounters Date Type Specialty Care Team Description 12/11/2021 Appointment Radiology 12/11/2021 Office Visit Orthopaedics Marion Tavera APRN [facility] ER DR ORTHOPAEDIC SURG [place], [place] [address] (Wo rk) 01/15/2022 Appointment Radiology Stiven Cervantes MD [facility] Pulmonary Medici [place], [place] [address] (Wo rk) Scheduled Procedures Name [...] Esquivel, Understanding Action Plan 9:07 AM EDT) [facility] Note: Formatting of this note might be d ifferent from the original. Patient Goal: To experience less side ef fects than his past regimen of Peg and Ribavirin Timeframe to meet goal: 3 months of ther apy documented as of this encounter Visit Diagnoses Diagnosis Neuropathic ulcer of foot, right, with f at layer exposed documented in this encounter Care Teams Server Service Assistant Relationship Specialty Start Date End Date Brian Fall APRN PCP - General Internal Medicine 04/07/[address] [place] [phone] documented as of this encounter
--- OUTSIDE RECORDS SUMMARY | 2021-11-30 08:19 | XMS_ITS | Encounter Summary ---
:1955 Author Organization [facility] Address [address] [place] [address] Care Team Providers Name Role Phone Brian Fall APRN Primary Care Provider Encounter Details Date Type Department Care Team Description 04/21/2020 [facility] use of [facility]; [facility] L, DO Osteomyelitis of fourth toe of left foot [facility] [address] [place], [place] [address] [place] [address] [phone] Social History Tobacco Use Types Packs/Day Years Used Date Current Every Day Smoker Cigars, Cigarettes 1 42 Smokeless Tobacco: Never Used Alcohol Use Standard Drinks/Week Comments Yes 22 (1 standard drink = 0.6 oz pure alcoh ol) Sex Assigned at Date Recorded Not on file documented as of this encounter Progress Notes Linn Cantu RN - 04/21/2020 12:15 PM EST OPAT Program Infectious Disease Clinic Visit Catheter Removal, Single Lumen PICC Date: 04/21/2020 @ 11:55. [ X ] Catheter intact with 44 cm removed. Sterile 4x4 gauze with Bacitracin ointment applied with pressure held x 5 minutes. Dressing replacedwith a sterile 2x2 dressing with Bacitracin ointment and covered with 2 small Tegaderm dressings. No bleeding noted from the site upon removal nor upon discharge from the [facility]. Reason for removal: [X ] End of Therapy [ ] Phlebitis [ ] Cellulitis [ ] Catheter-related infection: [ ] Suspected [ ] Documented [ ] Thrombus: [ ] Suspected [ ] Documented [ ] Infiltration [ ] Other Patient Education: [ X] Patient instructed to observe site for redness, swelling, discomfort and/or exudate and call Healthcare Provider if any of these signs/symptoms present. Post PICC removal instruction form handed to the patient. [facility] and [facility] notified. Catheter removed by: Linn Cantu, RN, BSN, OPAT Program Pager: [phone] documented in this encounter Plan of Treatment Upcoming Encounters Date Type Specialty Care Team Description 12/11/2021 Appointment Radiology 12/11/2021 Office Visit Orthopaedics Marion Tavera APRN [facility] ORTHOPAEDIC SURG [place], [place] [address] (Wo rk) 01/15/2022 Appointment Radiology Stiven Cervantes MD [facility] Pulmonary Medici [place], [place] [address] (Wo rk) Scheduled Procedures Name [...] Esquivel Understanding Action Plan 9:07 AM EDT) [facility] Note: Formatting of this note might be d ifferent from the original. 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
--- OUTSIDE RECORDS SUMMARY | 2021-11-30 08:19 | XMS_ITS | Encounter Summary ---
:1955 Author Organization [facility] [place] [address] Care Team Providers Name Role Phone Brian Fall APRN Primary Care Provider Reason for Visit Reason Onset Date Comments Other 06/20/2020 Oxygen CMN faxed to [phone] Encounter Details Date Type Department Care Team Description 06/20/2020 Telephone [facility] at [facility] Sparkle Reyna (Oxygen CMN [facility] Mya, RN faxed to [phone]) [place] [address] Social History Tobacco Use Types Packs/Day [...] 12/11/2021 Office Visit Orthopaedics Marion Tavera APRN [facility] ER DR ORTHOPAEDIC SURG [place], [place] [address] (Wo rk) 01/15/2022 Appointment Radiology Stiven Cervantes MD [facility] Pulmonary Mediccharlie villegas [place], [place] [address] (Wo rk) Scheduled Procedures Name [...] on filedocumented in this encounter Care Teams Color Control Supervisor Relationship Specialty Start Date End Date Brian Fall APRN PCP - General Internal Medicine 04/07/[address] [place] [phone] documented as of this encounter
--- OUTSIDE RECORDS SUMMARY | 2021-11-30 08:19 | XMS_ITS | Encounter Summary ---
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; [place] [phone] current use of antibiotics [id number] [phone] Social History Tobacco Use Types Packs/Day Years [...] 12/11/2021 Office Visit Orthopaedics Marion Tavera APRN [facility] ER DR ORTHOPAEDIC SURG [place], [place] [address] (Wo rk) 01/15/2022 Appointment Radiology Stiven Cervantes MD [facility] Pulmonary Medici nelly [place], [place] [address] (Wo rk) Scheduled Procedures Name [...] Understanding Action Plan 9:07 AM EDT) [facility] Note: Formatting of this note might be d ifferent from the original. 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
--- OUTSIDE RECORDS SUMMARY | 2021-11-30 08:19 | XMS_ITS | Encounter Summary ---
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 [place], [place] [address] [place] [address] [phone] Social History Tobacco Use Types Packs/Day Years [...] [facility] ER ORTHOPAEDIC SURG [place], [place] [address] (Wo rk) 01/15/2022 Appointment Radiology Stiven Cervantes MD [facility] er Pulmonary Medici nelly [place], [place] [address] (Wo rk) Scheduled Procedures Name [...] milleri group 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
--- OUTSIDE RECORDS SUMMARY | 2021-11-30 08:19 | XMS_ITS | Encounter Summary ---
:1955 Author Organization [facility] [place] [address] Care Team Providers Name Role Phone Huanjesus albertoBrian APRN Primary Care Provider Encounter Details Date Type Department Care Team Description 04/12/2020 Notes Only Infectious Disease a t [facility] Trisha [place]res, [place] [phone] Social History Tobacco Use Types Packs/Day Years Used Date Current Every Day Smoker Cigars, Cigarettes 1 42 Smokeless Tobacco: Never Used Alcohol Use Standard Drinks/Week Comments Yes 24 (1 standard drink = 0.6 oz pure alcoh ol) Sex Assigned at Date Recorded Not on file documented as of this encounter Progress Notes Trisha Peres, RN - 04/12/2020 8:40 AM EST Infectious Disease OPAT Program Faxed to Lab at [facility] ([place] on 04/12 at 0839 Fax confirmation on 04/12 at 0839 Documents faxed: CBC MD River Stevenson requests a repeat CBC this week d/t an elevated WBC/ANC (see scanned docs). This RN called and spoke with the patient who confirmed that he would be able to go to [facility] ([place] to have the lab drawn; [facility] is unable to see the patient for for the lab draw tomorrow. Will follow up on lab results tomorrow and continue to monitor the patient while enrolled in the OPAT program. documented in this encounter Plan of Treatment Upcoming Encounters Date Type Specialty Care Team Description 12/11/2021 Appointment Radiology 12/11/2021 Office Visit Orthopaedics Marion Tavera APRN [facility] ER ORTHOPAEDIC SUR[place], [place] [address] (Wo rk) 01/15/2022 Appointment Radiology Stiven Cervantes MD [facility] Pulmonary Medici [place], [place] [address] (Wo rk) Scheduled Procedures Name [...] Esquivel, Understanding Action Plan 9:07 AM EDT) [facility] Note: Formatting of this note might be d ifferent from the original. Patient Goal: To experience less side ef fects than his past regimen of Peg and Ribavirin Timeframe to meet goal: 3 months of ther apy documented as of this encounter Visit Diagnoses Not on filedocumented in this encounter Care Teams Business Solutions Director Relationship Specialty Start Date End Date Brian Fall APRN PCP - General Internal Medicine 04/07/[address] [place] [phone] documented as of this encounter
--- OUTSIDE RECORDS SUMMARY | 2021-11-30 08:19 | XMS_ITS | Encounter Summary ---
:1955 Author Organization [place] [address] Care Team Providers Name Role Phone Brian Fall APRN Primary Care Provider Encounter Details Date Type Department Care Team Description 08/08/2021 Telephone Pulmonology at [facility] [place]atha Campos, RT [facility] [place] [address] Social History Tobacco Use Types Packs/Day Years Used Date Current Every Day Smoker Cigars, Cigarettes 1 42 Smokeless Tobacco: Never Used Alcohol Use Standard Drinks/Week Comments Yes 22 (1 standard drink = 0.6 oz pure alcoh ol) Sex Assigned at Date Recorded Not on file documented as of this encounter Miscellaneous Notes Telephone Encounter - Agatha Campos, RT - 08/08/2021 4:22 PM EDT Called Mahin at home to follow up on his home oxygen in response to request from [facility] to dc his oxygen. Ace noted that he is utilizing his home oxygen more- he is utilizing the refillable tanks and this works well for him. Reviewed utilizing his home concentrator when he sleeps at night with the longer oxygen tubing to allow his home concentrator to be placed in a different room. ( he noted the home con centrator makes noise and therefore he has been utilizing his oxygen tanks or the back up oxygen tank). He is taking his inhalers regularly. Plan: continue his home oxygen and inhaler regimen. Have pulmonary elementary secretary call Ace to schedule annual follow up with Dr. Cervantes. Called Dania at [facility], , left message that we ARE NOT discontinuing Mahin's oxygen per their request since Mahin is continuing to utilize his oxygen at home. documented in this encounter Plan of Treatment Upcoming Encounters Date Type Specialty Care Team Description 12/11/2021 Appointment Radiology 12/11/2021 Office Visit Orthopaedics Marion Tavera APRN [facility] ORTHOPAEDIC SURG [place], [place] [address] (Wo rk) 01/15/2022 Appointment Radiology Stiven Cervantes MD [facility] Pulmonary Medici [place], [place] [address] (Wo rk) Scheduled Procedures Name [...] on filedocumented in this encounter Care Teams [employer] Machine Mechanic Relationship Specialty Start Date End Date Brian Fall APRN PCP - General Internal Medicine 04/07/[address] [place] [phone] documented as of this encounter
--- OUTSIDE RECORDS SUMMARY | 2021-11-30 08:19 | XMS_ITS | Encounter Summary ---
:1955 Author Organization [facility] [place] [address] Care Team Providers Name Role Phone Brian Fall APRN Primary Care Provider Encounter Details Date Type Department Care Team Description 05/10/2021 [facility] [place] [place] [address] [facility] [id number] [place], [place] [phone] Social History Tobacco Use Types Packs/Day Years [...] 12/11/2021 Office Visit Orthopaedics Marion Tavera APRN [facility] ORTHOPAEDIC SURG [place], [place] [address] (Wo rk) 01/15/2022 Appointment Radiology Stiven Cervantes MD [facility] Pulmonary Medici nelly [place], [place] [address] (Wo rk) Scheduled Procedures Name [...] Understanding Action Plan 9:07 AM EDT) [facility] Note: Formatting of this note might be d ifferent from the original. Patient Goal: To experience less side ef fects than his past regimen of Peg and Ribavirin Timeframe to meet goal: 3 months of ther apy documented as of this encounter Procedures Procedure Name Priority Date/Time Associated Diagnosis Comme nts XR FOOT MIN 3 VIEWS Routine 05/10/2021 9:45 AM Re sults for this BILAT EST procedure are i n the results section. documented in this encounter Results XR Foot Min 3 views Bilat (Generic) (05/10/2021 9:45 AM EST) P athologist Signature PT CLASS O RAD ADMITDTTM RAD PT RAD INFO [id number] RAD ILTON^CHINO EXAM DESC [id number]^XR RAD RIGHT FOOT ROUTINE^RIS Anatomical Region Laterality Modality Foot Bilateral Radiographic Imaging Specimen (Source) Anatomical Location Collection Method / Collectio n Time Received Time / Laterality Volume Impressions 05/10/2021 10:38 AM EST Findings consistent with osteomyelitis at the neck of the fourth metatarsal, as detailed above. Thank you for letting us participate in the care of this patient. ??If you are a health care provider and have any questi ons regarding this report, please contact the number below. ??For patients who have questions please contact the health care consultant that requested your imaging first. ? Narrative 05/10/2021 10:38 AM EST EXAMINATION: XR RIGHT FOOT ROUTINE CLINICAL HISTORY: Non-prs chronic ulcer oth prt right foot w fat layer exposed TECHNIQUE: 3 views right foot COMPARISON: April 09, 2021 FINDINGS: Changes of interval osteolysis of the ne ck of the fourth metatarsal with amputation of the head, and sclerotic ap pearance of the shaft and metadiaphysis at the site of previously identified foc us of soft tissue air, consistent with osteomyelitis. Irregular healed osseous deformity at the neck of the fifth metatarsal. Fixed flexion deformity of t he interphalangeal joint of the first digit. Hindfoot valgus. Subjectively dec reased bone mineralization. Maintained longitudinal arch. Minimal inferior calc aneal spurring. Procedure Note Kushal Pascual MD - 05/10/2021For matting of this note might be different from the original. EXAMINATION: XR RIGHT FOOT ROUTINE CLINICAL HISTORY: Non-prs chronic ulcer oth prt right foot w fat layer exposed TECHNIQUE: 3 views right foot COMPARISON: April 09, 2021 FINDINGS: Changes of interval osteolysis of the ne ck of the fourth metatarsal with amputation of the head, and sclerotic ap pearance of the shaft and metadiaphysis at the site of previously identified foc us of soft tissue air, consistent with osteomyelitis. Irregular healed osseous deformity at the neck of the fifth metatarsal. Fixed flexion deformity of t he interphalangeal joint of the first digit. Hindfoot valgus. Subjectively dec reased bone mineralization. Maintained longitudinal arch. Minimal inferior calc aneal spurring. IMPRESSION Findings consistent with osteomyelitis a t the neck of the fourth metatarsal, as detailed above. Thank you for letting us participate in the care of this patient. If you are a health care provider and have any questi ons regarding this report, please contact the number below. For patients w ho have questions please contact the health care consultant that requested your imaging first. Electronically signed by: Kushal geiger MD, [facility] ([phone]), at 05/10/2021 10:38 AM [place] Thur[place] DPAlvin IMG DX ORDERABLES documented in this encounter Visit Diagnoses Not on filedocumented in this encounter Care Teams Fan Mail Editor Relationship Specialty Start Date End Date Brian Fall APRN PCP - General Internal Medicine 04/07/19 [address] [place] [phone] documented as of this encounter
--- OUTSIDE RECORDS SUMMARY | 2021-11-30 08:20 | XMS_ITS | Encounter Summary ---
:1955 [place] [address] Care Team Providers Name Role Phone Brian Fall APRN Primary Care Provider Reason for Visit Auth/Cert Specialty Diagnoses / Procedures Referred By Contact Refer red To Contact Diagnoses Osteomyelitis Leg swelling Procedures EMERGENCY IPI Referral ID Status Reason Start Date Expiration Date Visits Requ ested Visits Authorized [id number] 1 1 Encounter Details Date Type Department Care Team Description 03/10/2020 Anesthesia Event Main Operating Room Dionte Matson MD [facility] [place] [address] [facility] Constanza Mosquera MD [facility] [place] [address] [facility] [place] [phone] Anesthesia Record Procedure Summary Procedure Name Responsible Anesthesia Start Anesthesia Stop Anesthesiologist Time Time AMPUTATIONDavid Brian C, MD 03/10/20 1558 03/10/20 170 4 TRANSMETATARSAL (WRVU 12.71) (Left Foot) Events Date Time Event Comment 03/10/2020 1548 1558 AN Verify 1558 Start 1558 An Start Data 1608 Anesthesia Ready 1612 Procedure Start 1634 Break/Relief In I assumed care f or [...] opportunity for questions and acknowledgement of understanding Sonido Randolph, SOFTLINES SUPERVISOR 1657 an stop data 1704 Recovery or ICU Handoff Patient care was transferred to the destination unit staff after review of the patient's medica l history, current anesthetic/surgi karla status and plan, according to the Provider Handoff Checklist. 1704 Stop Name Total Propofol 50 mg Propofol INF 324.25 mg BUpivacaine 0.5% 30 mL ceFAZolin 2 g ePHEDrine 20 mg PHENYLephrine 80 mcg Glycopyrrolate 0.4 mg Lactated Ringers 200 mL Agents Name O2 Air N2O Sevoflurane (et) O2 Auxiliary Flowmeter 1 Blood No blood administrations on file. Lines, Drains, and Airways Type Details Placement Removal Incision 12/13/15; knee; 11/23/21; 12/13/15 0000 by 11/23 1323 by 1323 Angelica Louise RN Brown, Pam ela K, RN Wound 03/09/20; 0934; foot; 03/09/20 0934 by 11/23/21 1324 by puncture; erythema and Mali Swanson RN Brown, Pamela K, RN edema, pt seen by wound care for this particular wound; 11/23/21; 1324 Wound 03/09/20; 0935; foot; 03/09/20 0935 by 11/23/21 1323 by puncture; no edema, Mali Swanson RN Brown, Pam ela K, RN redness. ; 11/23/21; 1323 Incision 03/10/20; foot; 11/23/21; 03/10/20 0000 by 11/23 1323 by 1323 Jacquelin Godinez RN Brown, Pamela K, RN Lumbar/CSF Drain 03/10/20; Left; medial; 03/10/20 0000 by 0557 by foot; collapsible closed Jacquelin Godinez RN Hemm erling, Michelle device; Dr. Terri Thompson RN Sterile prep and drape; Asleep; 18 round drain to 100mL bulb reservoir; 03/13/20; 0557 PIV 03/10/20; 0551; basilic 03/10/20 0551 by von 07/01 by vein (medial side of Winsome Rn, Jaylin perez, Farrukh Hannah, RN arm), left; L, RN aohs-nbh-topcog catheter system; 20 gauge; intradermal injection, tolerated well; 0; 03/13/20; 2043 documented in this encounter Social History Tobacco Use Types Packs/Day Years Used Date Current Every Day Smoker Cigars, Cigarettes 1 42 Smokeless Tobacco: Never Used Alcohol Use Standard Drinks/Week Comments Yes 24 (1 standard drink = 0.6 oz pure alcoh ol) Sex Assigned at Date Recorded Not on file documented as of this encounter OR Notes Anesthesia Postprocedure Evaluation - Dionte Hernandez MD - 03/10/2020 5:11 PM EDT Department of Anesthesiology Post-procedure Note Patient: Mahin Ramos Procedure Summary Date: 03/10/20 Room / Location: [facility] OR [address] [place] [address] MAIN OR Anesthesia Start: 1558 Anesthesia Stop: 170 Procedure: AMPUTATION, TRANSMETATARSAL (WRVU 12.71) (Left Foot) Diagnosis: (Osteomyelitis Left Foot) Surgeon: Geovanna Lewis MD Responsible Provider: Dionte Hernandez MD Anesthesia Type: Not recorded ASA Status: 3 All Anesthesia Providers: Anesthesiologist: Dionte Hernandez MD SOFTLINES SUPERVISOR: Michelle Tim CRNA Vitals Value Taken Time BP 119/91 03/10/20 1709 Temp Pulse 86 03/10/20 1710 Resp 15 03/10/20 1710 SpO2 98 % 03/10/20 1710 Pain Level Vitals shown include unvalidated device data. Patient Location: PACU/[facility] Level of Consciousness: Awake and Alert Pain Management: Satisfactory Analgesia PONV: None Cardiovascular Status: Hemodynamically Stable Respiratory Status: Stable Respiratory Status Postoperative Fluid Status: Intravascular EUvolemia Possible Anesthetic Complications: NONE apparent at time of evaluation Final Primary Anesthesia Type: MAC (The anesthetic type performed was the same as planned.) Comments: Anesthesia Procedure Notes - Howie Rincon MD - 03/10/2020 3:57 PM EDTAssociated Order(s): Anesthesia Block Anesthesia Block Date/Time: 03/10/2020 3:58 PM Performed by: Howie Rincon MD Authorized by: Constanza Mosquera MD Start Time: 03/10/2020 3:50 PM End Time: 03/10/2020 3:57 PM Patient Location: Block Room Indication: Primary Anesthetic Block Type: Ankle block Laterality: Left Position: Supine Prep: Mask, cap, sterile gloves, hand hygeine, chlorhexidine and patient draped Skin Anesthetic: Lidocaine 1% dose: 5 SonoPlex 21 5 cm Ultrasound Guided: In-plane and YES. Ultrasound Image(s) were saved. Ultrasound guidance was used to identify the targeted neuronal structure. Ultrasound was also used to identify needle position and to identify tissue (bone, muscle, and blood vessels) to prevent inadvertent intraneural or intravascular needle placement and injection. The spread of local anesthetic was confirmed with live ultrasound imaging. Single-Shot: Single-shot BUpivacaine 0.5%, 30 mL no complications Resident/SOFTLINES SUPERVISOR:: Howie Rincon MD Attending Physician:: Constanza Mosquera MD 10cc anterior wheel, 10cc posterior to medial malleolus, 10cc posterior to lateral malleolus Anesthesia Preprocedure Evaluation - Howie Rincon MD - 03/10/2020 9:54 AM EDT Pre-Anesthesia Evaluation for: Mahin Ramos a 64 y.o. male. Procedure(s): AMPUTATION, TRANSMETATARSAL (WRVU 12.71) MODIFIER WOUND VAC Patient Active Problem List Diagnosis ??? Osteomyelitis ??? Neuropathic ulcer of toe of right foot with fat layer exposed ??? Cellulitis of leg, right ??? Neuropathic ulcer of foot, left, with fat layer exposed ??? Neuropathic ulcer of foot, right, with fat layer exposed ??? SDH (subdural hematoma) ??? Avascular necrosis of humeral head right ??? Pain in left shoulder ??? S/P L TKA 12/13/15 Dr. Mallory ??? Cirrhosis ?? viral load (02/16) 234,000 IU/ml; genotype:2b ?? unclear when acquired ?? viral relapse after 48 weeks of treatment with peg and ribavirin ?? Liver biopsy- (07/18): ---Pathologic Diagnosis--- Liver, needle biopsy specimen showing changes consistent with chronic hepatitis C, stage 3-4/4, grade 2/4 (mild activity); and concomitant severe alcoholic/nonalcoholic steatohepatitis/steatofibrosis ??? Ankle fracture, left ??? Polysubstance abuse ?? Per referring Problem List - history of cocaine metabolites, suspicion of selling illicit substances in the past, and breaking pain contracts ??? Avascular necrosis bilateral knees ??? Confusion ??? Community acquired pneumonia ??? Imbalance ??? Hepatitis C Genotype 2b ??? Alcohol dependence ??? Anixety D/O NOS ??? ADHD NOS ??? Chronic back pain ??? Major depressive disorder, single episode, unspecified Past Medical History: Diagnosis Date ??? Cirrhosis Chronic HCV and history of alcohol use ??? COPD (chronic obstructive pulmonary disease) ??? Depression ??? GERD (gastroesophageal reflux disease) ??? Hepatitis C ??? HTN (hypertension) Past Surgical History: Procedure Laterality Date ??? PRO TOTAL KNEE ARTHROPLASTY Left 12/13/2015 @TOTAL KNEE ARTHROPLASTY performed by Gordon Mallory MD at [facility] MAIN OR ??? PRO UPPER GI ENDOSCOPY, DIAGNOSTIC Bilateral 08/17/2015 EGD, UPPER GI ENDOSCOPY performed by Trev Hong MD at [facility] ENDOSCOPY ??? REVISION TOTAL HIP ARTHROPLASTY [...] 21 Standard drinks or equivalent per week Social History Substance and Sexual Activity Drug Use Yes ??? Types: Marijuana Allergies Allergen Reactions ??? Morphine Other (See Comments) STATES THAT IT DOES NOT TAKE HIS PAIN AWAY Medications: MAR and/or home medications have been reviewed. Physical Exam: Patient Vitals for the past 24 hrs: Temp Heart Rate From SP02 Pulse Resp BP SpO2 O2 Flow Rate (L/min) O2 Device 03/09/201942 -- -- -- -- -- -- -- RA 03/09/20 2102 36.8 ??C (98.2 ??F) 70 bpm -- 18 (!) 183/93 90 % -- RA 03/09/20 2306 36.7 ??C (98 ??F) 65 bpm -- 18 177/87 93 % -- RA 03/09/20 2310 -- 72 bpm -- -- -- -- -- -- 03/10/20 0305 36.8 ??C (98.2 ??F) 64 bpm -- 17 172/83 93 % -- RA 03/10/20 0636 -- 61 bpm -- -- 170/83 92 % -- -- 03/10/20 0758 36.8 ??C (98.3 ??F) 69 bpm 70 20 194/87 96 % -- RA 03/10/20 0941 -- (!) 49 bpm -- -- -- (!) 77 % -- RA 03/10/20 0948 -- 51 bpm -- -- -- (!) 82 % -- RA 03/10/20 0949 -- -- -- -- -- -- -- RA 03/10/20 0950 -- 64 bpm -- -- -- 92 % 2 L/min NC 03/10/20 0951 -- 59 bpm -- -- -- 98 % 2 L/min NC Body mass index is 29.53 kg/m??. Height: 175.3 cm (5' 9) Weight: 90.7 kg (200 lb) Airway Assessment: Mallampati: III TM distance: >3 FB Neck ROM: full Cardiovascular Assessment: cardiovascular exam normal Pulmonary Assessment: pulmonary exam normal Dental Assessment: (+) lower dentures and upper dentures Misc Assessment: Patient is wearing No contact(s). IV access: Peripheral line Other exam findings: Easy intubation in the past Anesthesia Plan: ASA 3 with a(n) intravenous induction 64 y/o here for LEFT amputation transmet wound vac for osteomyelitis PMH: current smoker, anxiety, EtOH abuse, chronic pain on methadone daily and gabapentin daily, cirrhosis history (INR and plats WNL), hep C, HTN, COPD, neuropathy history? PSH: spine surgery, TKA under general, NATHANAEL, endos Plan : discuss nerve block with patient, sedation on top of that versus spinal versus GA Serial consent done for revisions and wound vac changes. PRELIM NOTE Region - Other Informed Consent: PAT Clinic Note documented in this encounter Plan of Treatment Upcoming Encounters Date Type Specialty Care Team Description 12/11/2021 Appointment Radiology 12/11/2021 Office Visit Orthopaedics Marion Tavera APRN [facility] ORTHOPAEDIC SURG [place], [place] [address] (Wo rk) 01/15/2022 Appointment Radiology Stiven Cervantes MD [facility] Pulmonary Medici [place], [place] 0[address] (Wo rk) Scheduled Procedures Name [...] Esquivel, Understanding Action Plan 9:07 AM EDT) [facility] Note: Formatting of this note might be d ifferent from the original. Patient Goal: To experience less side ef fects than his past regimen of Peg and Ribavirin Timeframe to meet goal: 3 months of ther apy documented as of this encounter Procedures Procedure Name Priority Date/Time Associated Diagnosis Comme nts ANESTHESIA BLOCK Routine 03/10/2020 3:57 PM Resul ts for this EDT procedure are i n the results section. documented in this encounter Results Anesthesia Block (03/10/2020 3:57 PM EDT) Narrative Constanza Mosquera MD - 03/10/2020 3:57 PM EDT Howie Rincon MD ? 03/10/2020 ??3:59 PM Anesthesia Block Date/Time: 03/10/2020 3:58 PM Performed by: Howie Rincon MD Authorized by: Constanza Mosquera MD Start Time: ??03/10/2020 3:50 PM End Time: ??03/10/2020 3:57 PM Patient Location: ??Block Room Indication: ??Primary Anesthetic Block Type: ??Ankle block Laterality: ??Left Position: ??Supine Prep: ??Mask, cap, sterile gloves, hand hygeine, chlorhexidine and patient draped Skin Anesthetic: ??Lidocaine 1% dose: ??5 SonoPlex 21 5 cm Ultrasound Guided: ??In-plane and YES. ? ?Ultrasound Image(s) were saved. Ultrasound guidance was used to identify the targeted neuronal structure. Ultrasound was also used to identify nee dle position and to identify tissue (bone, muscle, and blood vessels) to prevent inadvertent intraneural or intravascular needle plac ement and injection. The spread of local anesthetic was confirmed with live ultrasound imaging. ?? Single-Shot: ??Single-shot BUpivacaine 0.5%, 30 mL no complications ?? Resident/SOFTLINES SUPERVISOR:: ??Howie Rincon MD Attending Physician:: ??Constanza Mosquera MD 10cc anterior wheel, 10cc posterior to medial malleolus, 10cc posterior to lateral malleolus Constanza Mosquera MD MEDICAL RECORDS CODER [facility] documented in this encounter Visit Diagnoses Not on filedocumented in this encounter Administered Medications Inactive Administered Medications - up to 3 most recent administrations Medication Order MAR Action Action Date Dose Rate Site BUpivacaine (PF) (Marcaine) 0.5 % Given 03/10/2020 3:58 PM EDT 3 0 mLs (5 mg/mL) injection Starting on Fri03/10/20 at 1558, Until Fri03/10/20 at 1558, Anesthesia Intra-op, Routine ceFAZolin (Ancef) 1 g in dextrose 5% 50 mL Given 03/10/2020 4:08 PM EDT 2 g infusion PRN, Starting on Fri03/10/20 at 1608, Until Fri03/10/20 at 1704, Administer over 30 Minutes, Anesthesia Intra-op ePHEDrine 5 mg/mL multi-dose injection Given 03/10/2020 4:26 PM EDT 10 mg PRN, Starting on Fri03/10/20 at 1618, Until Fri03/10/20 at 1704, Anesthesia Intra-op, Routine Given 03/10/2020 4:18 PM EDT 10 mg glycopyrrolate (ROBINUL) multi-dose inje ction Given 03/10/2020 4:29 PM EDT 0.4 mg PRN, Starting on Fri03/10/20 at 1629, Until Fri03/10/20 at 1704, Anesthesia Intra-op, Routine lactated ringers infusion New Bag 03/10/2020 3:54 PM EDT CONTINUOUS PRN, Starting on Fri03/10/20 at 1554, Until Fri03/10/20 at 1704, Anesthesia Intra-op PHENYLephrine in NS (PF) (PERRY-SYNEPHRINE) 0.8 Given 4:27 PM EDT 80 mcg mg/10 mL (80 mcg/mL) multi-dose injection Syrg PRN, Starting on Fri03/10/20 at 1627, Until Fri03/10/20 at 1704, Anesthesia Intra-op, Routine propofoL (Diprivan) 10 mg/mL bolus injection Given 0 4:11 PM EDT 50 mg (Anesthesia) PRN, Starting on Fri03/10/20 at 1611, Until Fri03/10/20 at 1704, Anesthesia Intra-op propofoL (Diprivan) Rate/Dose 03/10/2020 4:26 50 mcg/kg/min 27.2 mL/ hr infusion Change PM EDT CONTINUOUS PRN, Starting on Fri03/10/20 at 1608, Until Fri03/10/20 at 1704, Anesthesia Intra-op, Routine Rate/Dose Change 03/10/2020 4:21 PM EDT 75 mcg/kg/min 40.8 mL/hr New Bag 03/10/2020 4:08 PM EDT 100 mcg/kg/min 54.4 mL/hr documented in this encounter Care Teams Upscale Security Officer Relationship Specialty Start Date End Date Brian Flal APRN PCP - General Internal Medicine 04/07/19 [address] [place] [phone] documented as of this encounter
--- OUTSIDE RECORDS SUMMARY | 2021-11-30 08:20 | XMS_ITS | Encounter Summary ---
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 River Stevenson, River Stevenson MD MD [facility] [address] [address] FLORES INFECTIOUS DISEASE INFECTIOUS DISEASE [place], [place] [id number] [place] [phone] Fax: Referral ID Status Reason Start Date Expiration Date Visits V isits Requested Authorized [id number] Closed Assume 03/13/2020 03/13/2021 1 1 Subset of Care Reason for Visit Auth/Cert Specialty Diagnoses / Procedures Referred By Contact Refer red To Contact Diagnoses Osteomyelitis Leg swelling Procedures EMERGENCY IPI Referral ID Status Reason Start Date Expiration Date Visits Requ ested Visits Authorized [id number] 1 1 Encounter Details Date Type Department Care Team Description 03/09/2020 - Hospital Encounter 1 Robert Martinez M D [facility] [place] [address] Osteomyelitis (Primary Dx); 03/14/2020 [facility], [place]shish, MD [facility] [place] [address] Leg swelling; Hospital s/p L 4th ray amp for osteo, 03/10/2020 [place]; [facility] Bacteroid es fragilis infection; Drive Infection due to species of Streptococcus milleri group; [place], [place] Infection by Pa steurella multocida [id number] Social History Tobacco Use Types Packs/Day Years Used Date Current Every Day Smoker Cigars, Cigarettes 1 42 Smokeless Tobacco: Never Used Alcohol Use Standard Drinks/Week Comments Yes 24 (1 standard drink = 0.6 oz pure alcoh ol) Sex Assigned at Date Recorded Not on file documented as of this encounter Last Filed Vital Signs Vital Sign Reading Time Taken Comments Blood Pressure 159/93 03/14/2020 11:32 AM EST Pulse 74 03/14/2020 6:18 AM EST Temperature 37 ??C (98.6 ??F) 03/14/2020 11:32 AM EST Respiratory Rate 20 03/14/2020 11:32 AM EST Oxygen Saturation 93% 03/14/2020 11:32 AM EST Inhaled Oxygen Concentration - - Weight 90.7 kg (200 lb) 03/09/2020 8:49 AM EDT Height 175.3 cm (5' 9) 03/09/2020 8:49 AM EDT Body Mass Index 29.53 03/09/2020 8:49 AM EDT documented in this encounter Discharge Summaries Leonela Sandhu MD - 03/14/2020 10:01 AM EST Inpatient - Discharge Summary Patient Name: Soledad Ramos Patient Age: 64 y.o. Birthdate: 1955 Admit date: 03/09/2020 Discharge date and time: 03/17/2020 Attending Physician: No att. providers found Code Status: Full Code Follow-up Recommendations for Providers: - Pt admitted with osteomyelitis s/p L 4th MT resection. He is non-weight bearing on LLE. He is scheduled for ortho and podiatry follow up. Pt is discharged with OPAT, on ceftriaxone 2g IV daily and flagyl 500mg iv TID to finish on 04/21/20. - Pt was continued on his home dose of methadone. He is not discharged with additional analgesics. He was encouraged to use tylenol as needed for pain. - Pt remained remained hypertensive through admission. He was started on lisinopril 40mg daily. Please follow up on blood pressure trends. - Pt was councelled on EtOH and smoking cessation. He was given nicotine patches for discharge. Discharge Diagnoses (Hospital Problems) and Secondary Diagnoses (Chronic Problems): Active Hospital Problems Diagnosis ??? s/p L 4th ray amp for osteo, 03/10/2020 [place] ??? Osteomyelitis Resolved Hospital Problems No resolved problems to display. Procedures: Operations: Procedure(s): AMPUTATION, TRANSMETATARSAL (WRVU 12.71) History of Presentation (per 03/09/2020 Admission H&P): Patient reports he left foot has been more sore over the past week. He has also noted erythema on the foot. It's primarily painful when he applies pressure to the area but not painful at rest. He has not had fevers, chills, nausea, vomiting, stool changes, urinary changes, syncope. He has chronic peripheral neuropathy and limited lower extremity sensation. He smokes 1ppd. He had 3 beers daily but hasnever had withdrawal symptoms or complicated withdrawal. He additionally notes right toe pain and thinks it is broken. No history of trauma to RLE or any injury. ?? Patient has a history of osteomyelitis of foot in January 2019 of 1st digit of left toe. He was admitted to [facility] where he received IV antibiotics and had amputation done. Left foot MRI in 08/2019 showed a small area of altered bone marrow signal intensity within the fourth metatarsal andfourth proximal phalanx deep to the soft tissue which was consistent with osteomyelitis. He completed 42 days of Linezolid 600mg on 10/13/19 and had a 10 day course of cephalexin beginning of August 2019. ?? He is followed closely by wound care and podiatry outpatient for chronic bilateral foot ulcers. Given worsening erythema of a left plantar ulcer, he was prescribed bactrim which the patient took for 48hours. Labs were done outpatient and revealed elevated inflammatory markers and leukocytosis. He wasinstructed to go to [facility]. ?? In the ED he is afebrile and hemodynamically stable with SpO2 92% on room air. Wound aspirate from the left foot ulcer from 03/07, are growing moderate staph aureus, moderate beta hemolytic strep (not group A or B). DVT ultrasound of left lower extremity was negative. MRI of left foot showed osteomyelitis and septic arthritis with gas in the soft tissue. He was admitted to hospital medicine for management of osteomyelitis. ?? Hospital Course: Soledad Ramos was admitted to the Medicine Service on 03/09/2020. The following acute and chronic medical issues were identified during this phase of their hospitalization, and managed as summarized below by problem: Pt is a 64 year-old male with a past medical history of GOLD 2 COPD, active smoker, chronic elevation of the right hemidiaphragm,??depression,??hepatitic C, cirrhosis, peripheral neuropathy secondary to alcohol dependence, hypertension, hyperlipidemia, gout, prior amputation secondary to osteomyelitis, and chronic bilateral foot ulcers who presents to the [facility]. ?? 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 # Severe Alcohol Use Disorder without Complication # Opioid use disorder Pt has a long history of AUD, now with peripheral neuropathy. He presented with infection of his distal L foot, and was found to have osteomyelitis on MRI. He was afebrile on presentation and hemodynamically stable, so antibiotics were deferred until after his OR procedure so that bone cultures could be obtained. Bone cultures grew Anaerobe(s) and Strep species, and Pasteurella multocida. Pt was treated with Ancef and Flagyl while inpatient. Per ID recommendations, antibiotic treatment was narrowed to ceftriaxone 2g iv daily, and metronidazole 500mg iv TID on day of discharge with OPAT orders in place for home abx to complete a 6 week course. Pt will discharge with orders for VNA at home to assistwith management of IV abx. Pt had surgery on day 2 of admission. Surgical procedure was uncomplicated and pt tolerated it well,with no post op complications. A wound drain was placed in the OR, and was able to be removed by ortho on POD3. Pt worked with PT on ambulating. He was able to ambulate well with a walker, but should remain non- weight bearing on his LLE at time of discharge, with plan for twice weekly home PT. Pt follows with wound care weekly in the outpatient setting, who will continue to see him. R foot ulcer was also assessed and pared down with meplex border dressing placed. Pt reported that he takes gabapentin 1800mg daily at home. While inpatient he received gabapentin 600mg TID. He received daily thiamine for 5 days in the inpatient setting. He used a 21mg nicotine patch daily for nicotine replacement that is prescribed at discharge. Pt's home methadone dose was continued throughout admission. Pt reports that he does not drink alcohol anymore. Vitals were stable through admission and he displayed no signs of withdrawal on presentation or over the course of admission. ?? # Gastroparesis - chronic Pt complained of occasional nausea through admission that is consistent with his baseline, and improved with as needed zofran. ?? # Mild hyponatremia Pt presented with mild hyponatremia that improved throughout admission with no intervention. ?? # COPD, Gold 2 Pt was continued on duonebs prn which he did not need. He has home inhalers, but reports that he hasnot been using them so we did not restart in the inpatient setting. He does not have a home O2 requirement. ?? # HTN Pt has known hypertension for which he takes metoprolol succinate 100mg daily at home. We continued metoprolol tartrate 25mg qid through admission. He remained hypertensive throughout admission so we started lisinopril 20mg on day 3 of admission, and up-titrated to 40mg daily prior to discharge. Pt remains hypertensive with SBP's in the 150's on day of discharge. We will recommend follow up with PCP. ?? Important Studies and Lab Data: DISCHARGE BASIC LABS Recent Labs 03/14/20 0505 03/13/2041303/12/20410 WBC 10.2* 10.4* 10.3* HGB 12.9* 12.7* 12.2* HCT 39.0* 38.6* 36.4* PLATELET 398* 344 308 Recent Labs 03/14/20 0505 03/13/2041303/12/20410 NA 136 136 135 K 3.6 3.9 3.7 CL 100 101 101 CO2 27 25 24 BUN 7* 8* 7* CREATININE 0.67* 0.76* 0.73* No results for input(s): BILITOT, BILIDIR, AST, ALT, ALKPHOS in the last 168 hours. No results for input(s): INR, PTT in the last 168 hours. Microbiology: Wound cultures left foot ulcer 03/07: moderate staphylococcus aureus, moderate beta hemolytic streptococci, not group A or B ?? Intraop clx - bone #3: GPCs, Gram neg rods, rare gram positive rods, pasturella multocida - bone #2: GPCs ?? Proximal bone cultures: - anaerobic: bacteriodes fragiles Pertinent radiology/diagnostic studies: MRI Left Foot wo Contrast?? IMPRESSION Severe motion artifact. Plantar ulcer extending to the fourth metatarsal head with osteomyelitis of the fourth proximal phalanx and the fourth metatarsal extending to the proximal shaft and also septic arthritis of the fourth MTP joint that is contiguous with a gas containing fluid collection at its dorsal aspect. ?? XR L Foot Findings are concerning for osteomyelitis of the head of the fourth metatarsal. ?? DVT LLE?? LEFT: ??No evidence of lower extremity deep venous thrombosis Discharge Conditions/Prognosis: Upon discharge the pt is hemodynamically stable, fully ambulatory without requiring supplemental oxygen, afebrile and pain controlled with stable oral regimen. Discharge to: home with VNA services and PT rehab Discharge Medications: Your Medications New Medications Dose Details cefTRIAXone 1 gram Solr Commonly known as: ROCEPHIN Inject 2,000 mg into the vein daily for 35 days. 2 g Quantity: 10 mL Refills: 0 gabapentin 300 mg Cap Commonly known as: Neurontin Take 2 capsules by mouth 3 times daily. Replaces: gabapentin 600 mg Tab 600 mg Quantity: 90 capsule Refills: 12 lisinopriL 40 mg Tab Commonly known as: Prinivil;Zestril Take 1 tablet by mouth daily. 40 mg Quantity: 90 tablet Refills: 3 metroNIDAZOLE 500 mg Tab Commonly known as: FlagyL Take 1 tablet by mouth 3 times daily for 35 days. 500 mg Quantity: 90 tablet Refills: 1 nicotine 21 mg/24 hr Pt24 Commonly known as: NICODERM CQ Change 1 patch on the skin daily. 1 patch Quantity: 28 patch Refills: 0 Continued medications, unchanged Dose Details acetaminophen 325 mg Tab Commonly known as: Tylenol Take 650 mg every 4 hours by oral route as needed. Refills: 0 BUSPIRONE ORAL Take 15 mg by mouth 2 times daily. 15 mg Refills: 0 citalopram 20 mg Tab Commonly known as: CeleXA Take 20 mg by mouth Daily. 20 mg Refills: 0 Dulera 100-5 mcg/actuation Hfaa inhale 2 puffs by mouth prn Generic drug: Mometasone-Formoterol Refills: 0 ipratropium-albuteroL 0.5 mg-3 mg(2.5 mg base)/3 mL Nebu Commonly known as: DUONEB Take 3 mLs by nebulization every 6 hours as needed. 3 mL Refills: 0 Lasix 80 mg Tab Take by mouth as needed. Generic drug: furosemide Refills: 0 METHADONE ORAL Take 82 mg by mouth daily. 82 mg Refills: 0 metoprolol succinate XL 100 mg Tablet sr Commonly known as: Toprol-XL Take 1 tablet by mouth daily. 1 tablet Refills: 0 multivitamin Tab Commonly known as: THERAGRAN Take 1 tablet by mouth daily. 1 tablet Refills: 0 pantoprazole EC 40 mg Tbec Commonly known as: Protonix Take 40 mg by mouth 2 times daily. 40 mg Refills: 0 ProAir HFA 90 mcg/actuation Hfaa Inhale 2 puffs into the lungs every 6 hours as needed. Generic drug: albuteroL 2 puff Refills: 0 QUEtiapine 25 mg Tab Commonly known as: SEROquel take 1 tablet by mouth twice a day if needed Refills: 0 Spiriva Respimat 2.5 mcg/actuation Mist Take 1 puff by mouth as needed. Generic drug: tiotropium bromide 1 puff Refills: 0 STOPPED Medications gabapentin 600 mg Tab Commonly known as: NEURONTIN Replaced by: gabapentin 300 mg Cap omeprazole 40 mg Cpdr Commonly known as: PriLOSEC ondansetron ODT 4 mg Tbdl Commonly known as: Zofran-ODT sulfamethoxazole-trimethoprim DS 800-160 mg Tab Commonly known as: Bactrim DS Updated Allergies/ADRs: Allergies Allergen Reactions ??? Morphine Other (See Comments) STATES THAT IT DOES NOT TAKE HIS PAIN AWAY Instructions Given to Patient at Discharge: Patient Instructions Instructions on Discharge to Home Why you were hospitalized - You were hospitalized for pain in your L foot, and found to have an infection of your bone, called osteomyelitis. You had an amputation of the 4th toe and metatarsal in that foot. The cultures of the bone grew various bacteria for which you were started on two antibiotics, cefazolin (ancef) and metronidazole (flagyl). You improved with antibiotics and are ready to go home with home physical therapy, home nursing, and home antibiotics. Instructions: - Please attend all of your follow up appointments regarding care of your foot. - You will have VNA nursing who will assist in setting up your outpatient IV antibiotics - Please continue to take all of your medications as prescribed - You will need an xray of your foot prior to your ortho follow up appointment, this is scheduled aslisted below. Call your doctor or seek medical attention if you develop the following - chest pain, shortness of breath, fever, cough, weakness in an arm or leg Activity level - use walker, no weight on your L leg Diet - no change in previous diet Driving - do not drive while taking pain medications Shower/Bath - permitted Wound Care - VNA to assist Home Oxygen therapy - none Changes in Your Medications: New Medications: - lisinopril 40mg by mouth daily - ceftriaxone 2g IV daily - metronidazole 500mg IV three times daily Medication dose changes: - gabapentin 300mg two tablets by mouth three times daily Stop these medications: - omeprazole as needed - bactrim OUTPATIENT [facility]TIBIOTIC REGIMEN[facility]: Diagnosis: Osteomyelities +/- hardware infection, ?? Organism(s): Anaerobe(s) and Strep species, Pasteurella multocida. Antibiotic(s): Ceftriaxone, 2 g IV daily and Metronidazole 500 mg PO TID.?? With a start date of 03/10/2020, and anticipated end date of 04/21/2020.?? Desired labs: CBC w/diff, CMP and CRP. Desired timing of end of therapy appointment: Week of: 04/17/2020.?? Other speciality appointments to coordinate with: Yes Which speciality?: ortho?? Dialysis patient?: No Imaging needed?: No ?? Follow-up: Future Appointments Date Time Provider Department Center 03/17/2020 3:10 PM [facility] MR NURSE MRI [facility] Rad 03/17/2020 4:10 PM [facility] MR 6 MH MRI [facility] Rad 03/22/2020 3:30 PM Maia Gómez DPM Pod [facility] 03/22/2020 4:00 PM Niki [place] APRN Wound [facility] 03/24/2020 9:15 AM [facility] DX ROOM 2 MH Xray [facility] Rad 03/24/2020 10:00 AM Geovanna Lewis MD [facility] ORTH 3C [facility] Your Inpatient Doctor: Leonela Sandhu MD Your Primary Care Provider: Janusz Tran APRN [phone] YOU ARE SCHEDULED FOR A FOLLOW UP WITH JANUSZ TRAN APRN ON 03/15/20 AT 11:10AM For questions regarding this document or issues relating to this hospitalization on the Medical Service, please contact your inpatient physician through the [facility] Dermatologist And Dermatopathologist . Issues after hours and on weekends will be handled by the Hospitalist staff on-call. General Instructions Orthopaedic Surgery Discharge Instructions PROCEDURE: Procedure(s): AMPUTATION, TRANSMETATARSAL (WRVU 12.71) MEDICATION: ?? If you need a renewal of your pain medication, please contact the clinic at [phone]. PRESCRIPTION RENEWAL REQUEST CAN TAKE UP TO 3 DAYS TO PROCESS SO PLEASE PLAN ACCORDINGLY. Some narcotic painmedications can not be called into your pharmacy and require the prescription to be picked up or mailed to your pharmacy. ?? You may take Tylenol (acetaminophen) 1000 mg every 8 hours until your pain is well-controlled. After that you can take Tylenol as needed per package insert. Do not take more than 3,000 mg of Tylenol(acetaminophen) in 24 hours. Please take your other medications as prescribed by your primary team. ACTIVITY: 1. You are Non-weight bearing in the left lower extremity. 2. Remember to keep your left lower extremity elevated as much as possible to decrease swelling and control pain. 3. Remember to use the walker or crutchesas needed at all times for protection and balance. DIET: Eat a normal diet, with adequate amounts of protein and fiber. WOUND CARE: 1. Staple/Suture removal 2 weeks post-op (approximately 03/24/20). 2. Change the dressing daily with a dry sterile dressing for the next week. After that you can change the dressing as needed or leave the wound open to air. A dry dressing after this may protect your clothing or decrease wound sensitivity. SHOWER/BATH: Keep the dressing clean and dry. If the dressing becomes wet, lightly pat the dressing dry. DO NOT submerge the incisions. When this operative dressings are removed you can let water gently run over the incisions. CALL YOUR SURGEON, IF YOU HAVE: ??? Fevers greater than 101.5* Fahrenheit ??? Chills or night sweats ??? Nausea or vomiting ??? Wound redness or discharge ??? Numbness or tingling in your hands or feet ??? Problems with the cast/splint or dressing ??? Any questions or concerns FOLLOW-UP APPOINTMENTS: 1. You will have follow-up appointments at [facility] as indicated below in Future Appointment and Orders. Future Appointments Date Time Provider Department Center 03/15/2020 4:45 PM Niki Stock[place] APRN Wound [facility] 03/17/2020 3:10 PM [facility] MR NURSE MH MRI [facility] Rad 03/17/2020 4:10 PM [facility] MR 6 MH MRI [facility] 03/22/2020 3:30 PM Maia Gómez DPM MH Pod [facility] 03/22/2020 4:00 PM Niki [place] APRN Wound [facility] If you have questions or concerns: Friday through Friday, 8 AM - 5 PM, please call Robert Grider MD, MD's office at . If it is after 5 PM or on the weekend, please call and ask to speak with the Orthopedic resident on-call. Future Appointments and Orders Future Appointments and Orders Future Appointments Provider Department Dept Phone 03/22/2020 3:30 PM Maia Gómez DPM Podiatry at [facility] Arrive at: [place] [facility] [phone] 03/22/2020 4:00 PM Niki Stockton APRN Wound Care at [facility] Arrive at: [place] [place] [facility] [phone] 03/24/2020 9:15 AM [facility] DX ROOM 2 XRay at [facility] Arrive at: [place] [facility] [phone] Please go to [facility] [place] [facility] ([place] Location). 03/24/2020 10:00 AM Geovanna Lewis MD Orthopaedics at [facility] Arrive at: [place] [facility] [phone] 04/03/2020 11:00 AM Maribeth Peguero APRN Infectious Disease at [facility] Arrive at: [place] [facility] [phone] 04/21/2020 11:00 AM Page Rdz MD Infectious Disease at [facility] Arrive at: [place] [place] [facility] [phone] Future Orders Complete By Expires XR Foot Min 3 views Left (Generic) [54567 Custom] 03/24/2020 09/23/2020 Process Instructions: Scheduling Instructions: Comments: Questions: Where will study be performed?: [facility] Radiology Portable exam?: Reason for exam and clinical history: s/p L 4th ray amp Clinical information / hansen questions: Stat read required?: Date of injury if applicable: Requested Time: OPAT: Order / Recommendation for Post Discharge IV Antibiotic Management [DBR261 CPT(R)] As directed Process Instructions: If no progress note charted, please enter Clinical details in comments. Scheduling Instructions: Comments: Please Fax all results to: OPAT Program Infectious Disease Section [facility], [place] [address] FAX: After hours, please contact the Infectious Disease Physician documentation supervisor at . If this order was signed greater than 72 hours prior to [facility] discharge, please call to confirm the accuracy of this order. If concerned about opioid overdose, administer patient's own naloxone 4mg (contents of 1 nasal spray) as a single dose in one nostril PRN for signs of opioid overdose (depressed respirations or consciousness). May repeat as needed q2-3 minutes in alternating nostrils until medical assistance arrives. Line care instructions Adult & Pedi CVC/PICC (Pedi>10kg) Flush protocol with medication infusion (SASH): Before Med: 10ml Normal Saline After Med: 10ml Normal Saline then 3 ml Heparin (10 units/ml) Additional Lumens: Flush 2x's daily & PRN 10ml Normal Saline then 3ml Heparin (10 units/ml) Flush protocol after blood withdrawal: Before: 10 ml Normal Saline Draw blood After: 20 ml Normal Saline then 3 ml Heparin (10 units/ml) Flush without med (each lumen): Flush 2x's daily & prn: 10 ml Normal Saline then 3 ml heparin (10 units/ml) PICC Dressing Change weekly and PRN Please use CHG or Bio Patch Catheter Occlusion Management Instill reconstituted Cathflo 2mg per instillation (based on the volume of the catheter lumen). May repeat x1 per occlusion incident. RN: Please care for PICC line including dressing changes weekly and prn. Please draw labs every Friday and prn and fax results to [facility] at [phone]. Please draw labs off PICC line. [facility] for [facility] draw details. Please RN visit for IV ABX teaching and ongoing assessment. Questions: ID Diagnosis: 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 03/10/20 Microorganisms being treated: Strep milleri, Pasteurella multocida, Bacteroides fragilis Antibiotic Allergies: No known antibiotic allergies Antibiotic: Ceftriaxone 2 g IV q 24 hr Metronidazole 500 mg PO q 8 hr Special Instructions: Start date: 03/10/2020 Anticipated stop date: 04/21/2020 Labs: Q Friday: CBC/Diff, CMP Q Friday Inflammatory CRP Last documented weight (kg): 90.7 kg (200 lb) Last documented height (cm): 175.3 cm (5' 9) Infectious Disease Attending: River Stevenson MD Referral to Home Health - at DISCHARGE [[id number] CPT(R)] As directed Process Instructions: Scheduling Instructions: Comments: DOCUMENTATION FOR VNA SERVICES (INCLUDING THOSE PATIENTS WITH MEDICARE COVERAGE REQUIRING HOME VNA SERVICES AND/OR HOSPICE SERVICES) PATIENT'S LOCATION: [facility]ad [facility] [place] [address] [place] [phone] (home) Cell: No relevant phone numbers on file. Client Success Specialist's Name: Patient In discussion with the attending physician, it is certified that this patient is under their care and that they, or a Nurse Practitioner,Clinical Nurse specialist or Physician Biometrics Instructor who is working directly with them, had a face to face encounter that meets the physician face to face encounter requirements with this patient on 03/14/20. The encounter with the patient was in whole, or in part, for the following medical condition, which is the primary reason for home health care services: IV antibiotics, assess wound, and vital signs related to osteomyelitis In discussion with the provider, it is certified that, based on their findings, the following services are medically necessary for home health services. To provide the following care/treatments with the clinical findings supporting the need for servicesas follows: HOME CARE ORDERS: RN ORDERS: Assess wound and PICC line, vital signs, cardiopulmonary status, nutrition, hydration, elimination, meds effectiveness and management; reinforce education re health issues osteomyelitis PT ORDERS: Continue rehab for endurance, gait stability and strength with mobility and transfers. Home safety evaluation. Home exercise program if appropriate. OT: assess and continue rehab for managing ADL's. HOME HEALTH CARE AGENCY: [facility] PHONE: [phone] FAX: [phone] Start of care: 24-48 hours after discharge FOR MEDICARE ONLY: In discussion with the attending physician, it is certified that the clinical findings support that this patient is homebound because absences from home require considerable and taxing effort due to: Medically contraindicated due to immunosuppression and increased risk of infection Medically contraindicated due to infected , draining or complicated wound Unable to ambulate community surfaces or distances unassisted due to pain, LE weakness or decreased balance and risk for falls Unsteady Gait, poor balance , requiring assistive devices and/or assistance of another Please note that any additional orders needs or changes will need to be obtained from this patient'sPCP: Janusz Tran APRN [address] [phone] All A agencies which cover the area of patient's residence have been reviewed, either verbally or in writing, and patient/family have chosen the home health care agency noted Questions: Agency name and contact information: [facility] Patient location post discharge: Home What services are requested: Registered Nurse Physical Therapy Occupational Therapy Start date: Responsible MD post discharge contact info: PCP Provider Contact Information: Janusz Tran APRN [address] [facility] [id number] Discharge References/Attachments: Discharge References/Attachments None documented in this encounter Discharge Instructions Discharge InstructionsLoly Amaya MD - 03/14/2020 2:16 PM EST Orthopaedic Surgery Discharge Instructions PROCEDURE: Procedure(s): AMPUTATION, TRANSMETATARSAL (WRVU 12.71) MEDICATION: ?? If you need a renewal of your pain medication, please contact the clinic at [phone]. PRESCRIPTION RENEWAL REQUEST CAN TAKE UP TO 3 DAYS TO PROCESS SO PLEASE PLAN ACCORDINGLY. Some narcotic painmedications can not be called into your pharmacy and require the prescription to be picked up or mailed to your pharmacy. ?? You may take Tylenol (acetaminophen) 1000 mg every 8 hours until your pain is well-controlled. After that you can take Tylenol as needed per package insert. Do not take more than 3,000 mg of Tylenol(acetaminophen) in 24 hours. Please take your other medications as prescribed by your primary team. ACTIVITY: 1. You are Non-weight bearing in the left lower extremity. 2. Remember to keep your left lower extremity elevated as much as possible to decrease swelling and control pain. 3. Remember to use the walker or crutchesas needed at all times for protection and balance. DIET: Eat a normal diet, with adequate amounts of protein and fiber. WOUND CARE: 1. Staple/Suture removal 2 weeks post-op (approximately 03/24/20). 2. Change the dressing daily with a dry sterile dressing for the next week. After that you can change the dressing as needed or leave the wound open to air. A dry dressing after this may protect your clothing or decrease wound sensitivity. SHOWER/BATH: Keep the dressing clean and dry. If the dressing becomes wet, lightly pat the dressing dry. DO NOT submerge the incisions. When this operative dressings are removed you can let water gently run over the incisions. CALL YOUR SURGEON, IF YOU HAVE: ??? Fevers greater than 101.5* Fahrenheit ??? Chills or night sweats ??? Nausea or vomiting ??? Wound redness or discharge ??? Numbness or tingling in your hands or feet ??? Problems with the cast/splint or dressing ??? Any questions or concerns FOLLOW-UP APPOINTMENTS: 1. You will have follow-up appointments at [facility] as indicated below in Future Appointment and Orders. Future Appointments Date Time Provider Department Center 03/15/2020 4:45 PM Niki Stockton APRN Wound [facility] 03/17/2020 3:10 PM [facility] MR NURSE MRI [facility] 03/17/2020 4:10 PM [facility] MR 6 MRI [facility] 03/22/2020 3:30 PM Maia Gómez DPM Pod [facility] 03/22/2020 4:00 PM Niki Stockton APRN Wound [facility] If you have questions or concerns: Friday through Friday, 8 AM - 5 PM, please call Robert Grider MD, MD's office at . If it is after 5 PM or on the weekend, please call and ask to speak with the Orthopedic resident on-call. Patient InstructionsTrLoly vila MD - 03/13/2020 8:03 AM EST Instructions on Discharge to Home Why you were hospitalized - You were hospitalized for pain in your L foot, and found to have an infection of your bone, called osteomyelitis. You had an amputation of the 4th toe and metatarsal in that foot. The cultures of the bone grew various bacteria for which you were started on two antibiotics, cefazolin (ancef) and metronidazole (flagyl). You improved with antibiotics and are ready to go home with home physical therapy, home nursing, and home antibiotics. Instructions: - Please attend all of your follow up appointments regarding care of your foot. - You will have [facility] nursing who will assist in setting up your outpatient IV antibiotics - Please continue to take all of your medications as prescribed - You will need an xray of your foot prior to your ortho follow up appointment, this is scheduled aslisted below. Call your doctor or seek medical attention if you develop the following - chest pain, shortness of breath, fever, cough, weakness in an arm or leg Activity level - use walker, no weight on your L leg Diet - no change in previous diet Driving - do not drive while taking pain medications Shower/Bath - permitted Wound Care - [facility] to assist Home Oxygen therapy - none Changes in Your Medications: New Medications: - lisinopril 40mg by mouth daily - ceftriaxone 2g IV daily - metronidazole 500mg IV three times daily Medication dose changes: - gabapentin 300mg two tablets by mouth three times daily Stop these medications: - omeprazole as needed - bactrim [facility]IM[facility]: Diagnosis: Osteomyelities +/- hardware infection, ?? Organism(s): Anaerobe(s) and Strep species, Pasteurella multocida. Antibiotic(s): Ceftriaxone, 2 g IV daily and Metronidazole 500 mg PO TID.?? With a start date of 03/10/2020, and anticipated end date of 04/21/2020.?? Desired labs: CBC w/diff, CMP and CRP. Desired timing of end of therapy appointment: Week of: 04/17/2020.?? Other speciality appointments to coordinate with: Yes Which speciality?: ortho?? Dialysis patient?: No Imaging needed?: No ?? Follow-up: Future Appointments Date Time Provider Department Center 03/17/2020 3:10 PM [facility] MR NURSE MRI [facility] 03/17/2020 4:10 PM [facility] MR 6 MH MRI [facility] 03/22/2020 3:30 PM Maia Gómez DPM MH Pod [facility] 03/22/2020 4:00 PM Niki Stockton APRN Wound [facility] 03/24/2020 9:15 AM [facility] DX ROOM 2 Xray [facility] 03/24/2020 10:00 AM Geovanna Lewis MD [facility] [place] [address] [place] [address] Your Inpatient Doctor: Leonela Sandhu MD Your Primary Care Provider: Janusz Tran APRN [phone] YOU ARE SCHEDULED FOR A FOLLOW UP WITH JANUSZ TRAN APRN ON 03/15/20 AT 11:10AM For questions regarding this document or issues relating to this hospitalization on the Medical Service, please contact your inpatient physician through the [facility] Dermatologist And Dermatopathologist . Issues after hours and on weekends [...] Aerosol Inhaler documented as of this encounter Progress Notes Tequila Hendrickson RN - 03/14/2020 2:57 PM EST Pt d/c at aprox 1500. AVS reviewed, IV removed, and scheduled meds given prior to d/c. Pt left with at main entrance, belongings in hand. Reviewed PICC care with patient and . Tequila Hendrickson RN Leonela Dobbins MD - 03/14/2020 2:57 PM EST Hospital Medicine - Attending Day of Discharge Documentation Discharge diagnosis Active Hospital Problems Diagnosis ??? s/p L 4th ray amp for osteo, 03/10/2020 Gitajn ??? Osteomyelitis Resolved Hospital Problems No resolved problems to display. Secondary Issues Active Non-Hospital Problems Diagnosis ??? Neuropathic ulcer of toe of right foot with fat layer exposed ??? Cellulitis of leg, right ??? Neuropathic ulcer of foot, left, with fat layer exposed ??? Neuropathic ulcer of foot, right, with fat layer exposed ??? SDH (subdural hematoma) ??? Avascular necrosis of humeral head ??? Pain in left shoulder ??? S/P L TKA 12/13/15 Dr. Mallory ??? Cirrhosis ??? Ankle fracture, left ??? Polysubstance abuse ??? Avascular necrosis bilateral knees ??? Confusion ??? Community acquired pneumonia ??? Imbalance ??? Hepatitis C ??? Alcohol dependence ??? Anixety D/O NOS ??? ADHD NOS ??? Chronic back pain ??? Major depressive disorder, single episode, unspecified I have personally seen and examined the patient and they are ready for discharge. Select the appropriate statement that describes your involvement and care and omit the other: I spent >30 minutes (Day of Discharge Code 83966) involved in the final examination of the patient, discussion of the hospital stay, instructions for continuing care to all relevant caregivers, and preparation of discharge records, prescriptions and referral forms. Plans ? Discharge to Home ? Follow-up scheduled with PCP, ID clinic ? Please see the Discharge Summary for complete details of any medication changes and additional plans. Rupal Grant RN - 03/14/2020 11:16 AM EST Patient, Soledad Ramos, admitted to [facility] on 03/09/20. 64 year old male with past medical history of GOLD 2 COPD who is an active smoker, chronic elevation of the right hemidiaphragm, depression, hepaticC, cirrhosis, peripheral neuropathy secondary to alcohol dependence, hypertension, hyperlipidemia, gout, prior amputation secondary to osteomyelitis, and chronic bilateral foot ulcers who presented to [facility] Emergency Department with osteomyelitis of 4th metatarsal s/p resection. Per MD, patient is medically ready for discharge with VNA services, confirmed acceptance of VNA services through [facility] has provided teach to patient for IV antibiotics per MD nuruest. Employment Coach spoke with patient who states that his is on her way and plans to be here around noon totransport patient home in private vehicle. RN and MD aware of discharge plan. CM to continue to monitor. Lashanda Mcdonald RN Pager: [phone] Janine Syed RN - 03/14/2020 8:14 AM EST [facility] Follow up Note: MORA Confirmed with Vidhya from [facility] that patient will be seen for SOC on 03/15 @2pm Hospital teaching was completed today with pt and his for IVP MOA of CTX. Vidhya -pt's remember process and feels able to assist pt. Delivery of IV supplies will occur by 2pm to meet the [facility] SOC visit. [facility] [phone] Page Gutierrez MD - 03/13/2020 4:17 PM EST OPAT INTAKE: Diagnosis: Osteomyelities +/- hardware infection, Organism(s): Anaerobe(s) and Strep species, Pasteurella multocida. Antibiotic(s): Ceftriaxone, 2 g IV daily and Metronidazole 500 mg PO TID. With a start date of 03/10/2020, and anticipated end date of 04/21/2020. Desired labs: CBC w/diff, CMP and CRP. Desired timing of end of therapy appointment: Week of: 04/17/2020. Other speciality appointments to coordinate with: Yes Which speciality?: ortho Dialysis patient?: No Imaging needed?: No Page Rdz MD 03/14/2020 7:43 AM John Egan - 03/13/2020 3:38 PM EST [facility] Encounter Note Patient Name: Soledad Ramos : [id number] MR#: [id number] Admit Date: 03/09/2020 8:15 AM Hospital Day 4 days Narrative: Visited to introduce and assess acceptance of [facility] services. Pt was awake, alert, oriented and in bed. Pt was at bedside and pt says that he is feeling better and he is living with family. Assessment:Patient coping positively with stresses of illness/hospitalization at this time. Pt shared that he is blessed with family and children which is source of courage and strength. Intervention and Outcome:Provided listening and encouraging presence. [facility] services accepted.Conversation to build trusting relationship.Provided pastoral presence. Follow-up: yes Time in Direct Care:05 Mins John Nava 03/13/2020 Loly Amaya MD - 03/13/2020 2:24 PM EST Inpatient Medicine Progress Note Hospital Day 4 days Active Hospital Problems Diagnosis ??? s/p L 4th ray amp for osteo, 03/10/2020 Gitajn ??? Osteomyelitis Resolved Hospital Problems No resolved problems to display. ID: Pt is a 64 year-old male with a past medical history of GOLD 2 COPD, active smoker, chronic elevation of the right hemidiaphragm, depression, hepatitic C, cirrhosis, peripheral neuropathy secondaryto alcohol dependence, hypertension, hyperlipidemia, gout, prior amputation secondary to osteomyelitis, and chronic bilateral foot ulcers who presents to the [facility] ED now s/p left 4th metatarsal resection. 24 Hour Events: 03/12: POD2 s/p left 4th MT resection for osteomyelitis. Did not get cefazolin. Remained on metronidazole 500 q8h. - no acute events overnight Subjective: POD 3 Pt is feeling well. He is fully oriented this am. He will work with PT today. Pain is well controlled. Drain out this am without issue. ROS: Denies fevers/chills, chest pain, shortness of breath, n/v/d/c, muscle aches or weakness. Vitals: Last value Range last 24 hrs Temperature Temp: 36.7 ??C (98.1 ??F) Temp: [36.6 ??C (97.9 ??F)-37.3 ??C (99.1 ??F)] Heart Rate Heart Rate: 72 Heart Rate: [62-72] Blood Pressure BP: 168/83 BP: (166-180)/(75-91) Respiratory Rate Resp: 22 Resp: [16-22] SpO2 SpO2: 90 % SpO2: [90 %-93 %] Patient Vitals for the past 168 hrs: Weight 03/09/20 0849 90.7 kg (200 lb) Ins/Outs: Intake/Output Summary (Last 24 hours) at 03/13/2020 1424 Last data filed at 03/13/2020 1000 Gross per 24 hour Intake 1330 ml Output 7 ml Net 1323 ml Physical Exam: General: pleasant male in no acute distress HEENT: PERRL, Moist oropharynx Heart: RR, S1 and S2 auscultated, systolic murmur best heard at apex Lungs: Clear to auscultation Abdomen: Active BS, Soft, NTTP Left lower extremity: JUDE wrapped to knee with drain with SS fluid. RLE with chronic ulcers but no erythema, pus, warmth, or swelling ?? Laboratory: CBC: WBC 10.4 (from 10.3), Hgb 12.7 (12.2), Plt 308 (344) Chemistry: Na 136 (135) Cr 0.76 (0.73) Microbiology: Wound cultures left foot ulcer 03/07: moderate staphylococcus aureus, moderate beta hemolytic streptococci, not group A or B Intraop clx - bone #3: GPCs, Gram neg rods, rare gram positive rods, pasturella multocida - bone #2: GPCs ?? Proximal bone cultures: - anaerobic: bacteriodes fragiles - aerobic: no growth to date ?? Imaging / Diagnostic Studies: MRI Left Foot wo Contrast IMPRESSION Severe motion artifact. Plantar ulcer extending to the fourth metatarsal head with osteomyelitis of the fourth proximal phalanx and the fourth metatarsal extending to the proximal shaft and also septic arthritis of the fourth MTP joint that is contiguous with a gas containing fluid collection at its dorsal aspect. ?? XR L Foot Findings are concerning for osteomyelitis of the head of the fourth metatarsal. ?? DVT LLE?? LEFT: ??No evidence of lower extremity deep venous thrombosis Assessment: Pt is a 64 year-old male with a past medical history of GOLD 2 COPD, active smoker, chronic elevation of the right hemidiaphragm, depression, hepatitic C, cirrhosis, peripheral neuropathy secondary to alcohol dependence, hypertension, hyperlipidemia, gout, prior amputation secondary to osteomyelitis, and chronic bilateral foot ulcers who presents to the [facility] ED. ?? He is POD3 s/p L 4 MT resection, on broad spectrum antibiotics. We will continue to discuss antibiotic regimen moving forward with ID, as patient may require a PICC line with OPAT depending on proximalbone cultures which are pending. Pain is well controlled, drain was taken out this morning by ortho.We will have PT work with pt today. Will increase lisinopril today for management of hypertension, and continue home metoprolol. ?? Plan: # Osteomyelitis of Left 4th Metatarsal s/p resection # Septic Arthritis of 4th MTP Joint - cefazolin 2g q8h - flagyl 500 q8h - ID recommendations - orthopedics recommendations: - drain out, ok for home, f/u on 03/22 - wound care consulted - follow-up blood and bone cultures - proximal bone: + bacteriodes f. - physical therapy consulted ?? # Severe Alcohol Use Disorder without Complication # Peripheral neuropathy 2/2 alcohol use # Opioid use disorder - gabapentin 1200mg bid - continue home methadone - thiamine 100mg daily - nicotine patch daily ?? # Gastroparesis - chronic - monitor electrolytes - zofran 4mg iv prn # Mild hyponatremia - resolved - daily bmp ?? # COPD, Gold 2 - duonebs prn ?? # HTN - lisinopril 40mg daily (started this admission) - metoprolol tartrate 25 q6h (home succinate 100) ?? # Diet: [facility]. CC Diet # DVT Ppx: enoxaparin # Decision maker: Self or # Code Status: Full Loly Amaya MD Internal Medicine, PGY-1 Medicine Team Pager #[phone] 03/13/2020 Associated attestation - Leonela Sandhu MD - 03/14/2020 3:04 PM EST Attending Attestation Please see Dr Loly Amaya's note for details of the patient history of presentation and data. I have discussed, reviewed and agree with the documented History, Physical findings, Assessment and Plan of care. I have examined the patient myself and personally reviewed all studies. In addition, I certify that I am a [facility] credentialed attending provider with admitting privileges and that the patient meets or has met medical necessity to require an inpatient IPI level of care meeting a minimum of two midnights or is on the [facility] inpatient only procedure list (status C) due to: Septic Arthritis of 4th MTP Joint and Osteomyelitis of Left 4th Metatarsal s/p resection Negro Taylor DO - 03/13/2020 12:11 PM EST Regional Anesthesia Post-Procedure Assessment Spoke to patient in room. Peripheral nerve block resolved appropriately. No residual weakness/numbness/decreased sensation. No sign of infection at injection site. Tolerating POs appropriately. Patientvery satisfied with nerve block. Negro Taylor DO 03/13/20 12:20 PM River Stevenson MD - 03/13/2020 10:13 AM EST INFECTIOUS DISEASE FOLLOW-UP NOTE Active ID Issue(s): Osteomyelitis 4th metatarsal Lt foot s/p 4th ray metatarsal amputation Antimicrobial Therapy: Flagyl 500 mg PO TID Cefazolin IV Intercurrent Events/Subjective Data: No event overnight and has been doing well. Mild pain on the left foot. Ambulate well using a walker. Physical Exam: Last value Range last 24 hrs Temperature Temp: 37.3 ??C (99.1 ??F) Temp: [36.6 ??C (97.9 ??F)-37.3 ??C (99.1 ??F)] Heart Rate Heart Rate: 72 Heart Rate: [62-72] Blood Pressure BP: (!) 173/91 BP: (166-180)/(75-91) Respiratory Rate Resp: 20 Resp: [16-22] SpO2 SpO2: 92 % SpO2: [89 %-93 %] General Looks well, alert and oriented Heart Regular rate and rhythm, no murmur Lungs Clear to auscultation bilaterally, no crackles or wheezing Abdomen Soft, not tender, normoactive bowel sounds Extremities No joint swelling, no edema Skin No rash Neuro Grossly intact Lines No central lines Left foot On splint with covered dressing. Laboratory: Lab Results Component Value Date WBC 10.4 (H) 03/13/2020 HGB 12.7 (L) 03/13/2020 HCT 38.6 (L) 03/13/2020 PLATELET 344 03/13/2020 Lab Results Component Value Date CREATININE 0.76 (L) 03/13/2020 Lab Results Component Value Date ALT 13 10/25/2019 AST 17 10/25/2019 GGT 33 02/03/2018 ALKPHOS 114 10/25/2019 BILITOT 0.6 10/25/2019 Sed Rate (mm/hr) Date Value 03/09/2020 106 (H) 03/07/2020 74 (H) 10/25/2019 32 11/14/2015 12 09/06/2014 9 CRP (mg/L) Date Value 03/09/2020 102.6 (H) 03/07/2020 109.5 (H) 10/25/2019 11.4 (H) CRP High Sens (mg/L) Date Value 11/14/2015 19.7 09/06/2014 8.7 Microbiology: 03/07 left foot ulcer wound culture: Aerobic culture - MSSA, moderate BH strep not group A or B Anaerobic culture - B.fragilis and other bacteroides species 03/09 blood cultures - no growth to date 03/10 intraoperative bone cultures - Bacteroides spp, Pasturella spp., S.milleri (pending sensitivity) 03/10 proximal bone cultures #3 grew S.milleri and CoNS from broth (pending sensitivity) 03/10 proximal bone culture #2 Coagulase negative Staphylococcus species isolated from broth culture. Radiology/Studies/Procedures: MRI left foot 03/09/20?? IMPRESSION Severe motion artifact. ??Plantar ulcer extending to the fourth metatarsal head with osteomyelitis of the fourth proximal phalanx and the fourth metatarsal extending to the proximalshaft and also septic arthritis of the fourth MTP joint that is contiguous with a gas containing fluid collection at its dorsal aspect. ?? Assessment: Soledad Ramos is a 64 y.o. male with a long recent history of left plantar foot surface ulceration with concern for osteomyelitis, failing previous multiple antibiotic regimens including keflex, bactrim and linezolid treatment as an outpatient. He presented with worsening apperance of the wound and MRI confirmed osteomyelitis. He underwent left foot metatarsal 4th ray amputation on 03/10. Because ofthe MRI of the left foot showed osteomyelitis extended to the proximal shaft with the finding from OR concerning for the residual osteomyelitis. Regardless of the cultures of the proximal bone, patientwould need 6 weeks of IV abx. At this point, bone cultures grew polymicrobial including Bacteroides spp, Pasturella spp., S.milleri and CoNS. We don't think CoNS is a real pathogen in this case given that it only grew in the broth culture. Therefore, would recommend to change cefazolin to ceftriaxone to cover S.milerri and pasteurella and continue flagyl PO for Bacteroides. He will need a PICC line placement and discharge on OPAT with the anticipate end date on 04/21. Recommendations: - Stop cefazolin IV - Start ceftriaxone 2 g IV Daily - Continue Flagyl 500mg PO TID - PICC line placement - OPAT on discharge Patient discussed with ID attending . Recommendations discussed with primary treating team. ID will follow. Please do not hesitate to page with any questions or concerns. Page Rdz MD Infectious Disease Fellow 03/13/2020 4:10 PM ID Attending I reviewed the patient's history with Dr. Rdz, I reviewed pertinent medical records, and I interviewed the patient myself. I agree with the history as detailed above. In brief, we were asked by Sing to see this 64 y.o. year-old male because of a complicated foot infection. Mr. Ramos underwent tra nsmetatarsal resection of the left fourth toe on March 10, at which time infection of the residualmetatarsal was suspected. Cultures obtained before and during surgery have yielded MSSA, C. albicans, beta-hemolytic streptococci, Bacteroides fragilis, Streptococcus milleri, rare E. faecalis, Pasteurella multocida, Prevotella, and coagulase-negative staphylococci (in broth only). I examined the patient myself, and my examination confirms Dr. Rdz's findings. Dr. Rdz's assessment and plan were formulated in discussion with me at the time of our consultation, and I agree with them as documented. The hansen pathogens in this case are likely to be anaerobes, S. milleri, and Pasteurella, with C. albicans and E. faecalis (which returned after the patient's discharge) unlikely to be pathogenic; MSSA and beta-streptococci were recovered only from a pre-operative wound and in any case are covered by ceftriaxone. Our recommended regimen of ceftriaxone plus metronidazole would not cover CoNS, Jesika and Enterococcus, but coverage of these organisms is probably not necessary. We could consider switching to Zosyn at the time of Mr. Ramos's first OPAT visit, ifthere are clinical or laboratory indications of a suboptimal response to therapy. Anatoliy Oliva MD - 03/13/2020 6:12 AM EST ORTHOPAEDIC SURGERY INPATIENT PROGRESS NOTE Patient Name: Soledad Ramos Age: 64 y.o. Surgery/Issue: Left 4th MT ray resection for osteo Attending: Dr. Lewis Date of surgery: 03/10/2020 SUBJECTIVE / INTERVAL HISTORY: No acute events overnight. Per RN, difficulty complying with WB restrictions. Drain d/c'd after 7 ON. Denies chest pain, shortness of breath, nausea, vomiting, numbness/weakness. Pain well-controlled. Afebrile. Intraop bone cx - Bone from infected MT Pasteurella multocida, S. Milleri, Bacteroides. Proximal bone cultures NGTD x3 days FOCUSED REVIEW OF SYSTEMS: as above. Active Hospital Problems Diagnosis ??? s/p L 4th ray amp for osteo, 03/10/2020 [facility] ??? Osteomyelitis Resolved Hospital Problems No resolved problems to display. Active Non-Hospital Problems Diagnosis ??? Neuropathic ulcer of toe of right foot with fat layer exposed ??? Cellulitis of leg, right ??? Neuropathic ulcer of foot, left, with fat layer exposed ??? Neuropathic ulcer of foot, right, with fat layer exposed ??? SDH (subdural hematoma) ??? Avascular necrosis of humeral head ??? Pain in left shoulder ??? S/P L TKA 12/13/15 Dr. Mallory ??? Cirrhosis ??? Ankle fracture, left ??? Polysubstance abuse ??? Avascular necrosis bilateral knees ??? Confusion ??? Community acquired pneumonia ??? Imbalance ??? Hepatitis C ??? Alcohol dependence ??? Anixety D/O NOS ??? ADHD NOS ??? Chronic back pain ??? Major depressive disorder, single episode, unspecified MEDICATIONS: ??? metroNIDAZOLE (Flagyl) tablet 500 mg ??? HYDROmorphone (DILAUDID) injection 0.2 mg OR HYDROmorphone (DILAUDID) injection 0.4 mg OR HYDROmorphone (DILAUDID) injection 0.6 mg ??? calcium carbonate (Tums) chewable tablet 500 mg ??? gabapentin (Neurontin) capsule 600 mg ??? methadone (Dolophine) (10 mg/mL) oral liquid 82 mg ??? lisinopriL (Prinivil;Zestril) tablet 20 mg ??? enoxaparin (LOVENOX) injection 40 mg ??? metoclopramide (Reglan) tablet 10 mg ??? metoprolol tartrate (Lopressor) tablet 25 mg ??? sodium chloride 0.9 % (flush) flush 5 mL ??? sodium chloride 0.9 % (flush) flush 5-20 mL ??? lidocaine (XYLOCAINE) 10 mg/mL (1 %) injection 3 mg ??? acetaminophen (Tylenol) tablet 650 mg ??? nicotine (NICODERM CQ) 21 mg/24 hr patch 21 mg AND nicotine (NICODERM CQ) 21 mg/24 hr patch Patch Verification AND nicotine (NICODERM CQ) 21 mg/24 hr patch Patch Removal ??? melatonin tablet 3 mg ??? thiamine (Vitamin B1) tablet 100 mg ??? busPIRone (Buspar) tablet 15 mg ??? QUEtiapine (SEROquel) tablet 25 mg ??? pantoprazole EC (Protonix) tablet 40 mg OBJECTIVE: Temp: [36.6 ??C (97.9 ??F)-36.9 ??C (98.4 ??F)] Heart Rate: [62-72] Resp: [16-22] BP: (166-180)/(75-91) Intake/Output Summary (Last 24 hours) at 03/13/2020 0612 Last data filed at 03/13/2020 0537 Gross per 24 hour Intake 1510 ml Output 7 ml Net 1503 ml Body mass index is 29.53 kg/m??. PE: General: awake/alert, responds to questions CV: RRR assessed peripherally Resp: Breathing comfortably on RA LLE: Dressing and splint c/d/i Sensory largely diminished at baseline of foot, but states can appreciate some pressure to touch in exposed toes (baseline) Motor intact to FHL/EHL, knee extension/flexion, hip extension/flexion Brisk capillary refill distally, toes warm/well-perfused Lab Results Component Value Date NA 136 03/13/2020 K 3.9 03/13/2020 CL 101 03/13/2020 CO2 25 03/13/2020 BUN 8 (L) 03/13/2020 CREATININE 0.76 (L) 03/13/2020 GLUCOSE 112 03/10/2020 GLUCFASTING 91 03/13/2020 CALCIUM 9.4 03/13/2020 Lab Results Component Value Date WBC 10.4 (H) 03/13/2020 HGB 12.7 (L) 03/13/2020 HCT 38.6 (L) 03/13/2020 MCV 93.7 (H) 03/13/2020 PLATELET 344 03/13/2020 Lab Results Component Value Date INR 1.1 03/10/2020 IMAGING: Results for orders placed or performed during the hospital encounter of 03/09/20 MRI Foot wo Contrast Left (Exam End: 03/09/2020 2:52 PM) Impression Severe motion artifact. Plantar ulcer extending to the fourth metatarsal head with osteomyelitis of the fourth proximal phalanx and the fourth metatarsal extending to the proximal shaft and also septic arthritis of the fourth MTP joint that is contiguous with a gas containing fluid collection at its dorsal aspect. Thank you for letting us participate in the care of this patient. For questions regarding this report, please contact the number below. Foot Min 3 views Left (Generic) (Exam End: 03/09/2020 4:50 PM) Impression Findings are concerning for osteomyelitis of the head of the fourth metatarsal. Thank you for letting us participate in the care of this patient. For questions regarding this report, please contact the number below. Foot 2 views Left (Exam End: 03/10/2020 9:23 PM) Impression 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 Thank you for letting us participate in the care of this patient. For questions regarding this report, please contact the number below. SSMENT / PLAN: Soledad Ramos is a 64 y.o. male 3 Days Post-Op S/P 4th MT ray resection for osteo. Doing well post-operatively. On cefazolin and flagyl. Drain d/c'd this AM. 5 hole count intact. Activity: NWB LLE DVT prophylaxis: recommend lovenox inpatient Closure: Prolene out ~04/01 Dressing: splint Antibiotics: ancef F/u: 03/22 podiatry. Will sched w/ us 2 wks Anatoliy Oliva MD 03/13/2020 Future Appointments Date Time Provider Department Center 03/17/2020 3:10 PM [facility] MR NURSE MRI [facility] Rad 03/17/2020 4:10 PM [facility] MR 6 MRI [facility] 03/22/2020 3:30 PM Maia Gómez DPM [place] [facility] 03/22/2020 4:00 PM Niki Stockton APRN Wound [facility] Associated attestation - Geovanna Lewis MD - 03/14/2020 6:59 AM EST Patient seen and examined. Agree with resident note. Dania Lewis MD Department of Orthopaedics 03/14/20 Loly Amaya MD - 03/12/2020 7:11 AM EST Inpatient Medicine Progress Note Hospital Day 3 days Active Hospital Problems Diagnosis ??? s/p L 4th ray amp for osteo, 03/10/2020 [place] ??? Osteomyelitis Resolved Hospital Problems No resolved problems to display. ID: Pt is a 64 year-old male with a past medical history of GOLD 2 COPD, active smoker, chronic elevation of the right hemidiaphragm, depression, hepatitic C, cirrhosis, peripheral neuropathy secondaryto alcohol dependence, hypertension, hyperlipidemia, gout, prior amputation secondary to osteomyelitis, and chronic bilateral foot ulcers who presents to the [facility] now s/p left 4th metatarsal resection. 24 Hour Events: 03/11: POD1 s/p left 4th MT resection for osteomyelitis. Now on cefazolin 2g q8h and metronidazole 500 q8h. Required straight cath overnight for retention, expected after surgery. - 12:05 AM: pt not oriented to place or situation, BP 167/123. Metop just given. No signs of GARCIA/FND;no other pain/discomfort noted. Not agitated/restless. Remains alert. Advised RN to re-orient and page if change. Subjective: Pt is feeling well. He is fully oriented this am. He feels ready to go home. Reports pain is well controlled. ROS: Denies fevers/chills, chest pain, shortness of breath, n/v/d/c, muscle aches or weakness. Vitals: Last value Range last 24 hrs Temperature Temp: 36.9 ??C (98.4 ??F) Temp: [36.6 ??C (97.9 ??F)-37.1 ??C (98.8 ??F)] Heart Rate Heart Rate: 72 Heart Rate: [72] Blood Pressure BP: 175/86 BP: (100-175)/(63-123) Respiratory Rate Resp: 18 Resp: [18] SpO2 SpO2: 92 % SpO2: [87 %-97 %] Patient Vitals for the past 168 hrs: Weight 03/09/20 0849 90.7 kg (200 lb) Ins/Outs: Intake/Output Summary (Last 24 hours) at 03/12/2020710 Last data filed at 03/11/20202019 Gross per 24 hour Intake 240 ml Output 605 ml Net -365 ml Physical Exam: General: pleasant male in no acute distress HEENT: PERRL, Moist oropharynx Heart: RR, S1 and S2 auscultated, systolic murmur best heard at apex Lungs: Clear to auscultation Abdomen: Active BS, Soft, NTTP Left lower extremity: JUDE wrapped to knee with drain with SS fluid. RLE with chronic ulcers but no erythema, pus, warmth, or swelling ?? Laboratory: CBC: WBC 11 (from 10.5), Hgb 12.3 (13.8), Plt 316 Chemistry: Na 133 (136) Cr 0.77 Microbiology: Wound cultures left foot ulcer 03/07: moderate staphylococcus aureus, moderate beta hemolytic streptococci, not group A or B Intraop clx - bone #3: GPCs, Gram neg rods, rare gram positive rods, pasturella multocida - bone #2: GPCs ?? Proximal bone cultures without growth to date ?? Imaging / Diagnostic Studies: MRI Left Foot wo Contrast IMPRESSION Severe motion artifact. Plantar ulcer extending to the fourth metatarsal head with osteomyelitis of the fourth proximal phalanx and the fourth metatarsal extending to the proximal shaft and also septic arthritis of the fourth MTP joint that is contiguous with a gas containing fluid collection at its dorsal aspect. ?? XR L Foot Findings are concerning for osteomyelitis of the head of the fourth metatarsal. ?? DVT LLE?? LEFT: ??No evidence of lower extremity deep venous thrombosis Assessment: Pt is a 64 year-old male with a past medical history of GOLD 2 COPD, active smoker, chronic elevation of the right hemidiaphragm, depression, hepatitic C, cirrhosis, peripheral neuropathy secondary to alcohol dependence, hypertension, hyperlipidemia, gout, prior amputation secondary to osteomyelitis, and chronic bilateral foot ulcers who presents to the [facility]. ?? He is POD2 s/p L 4 MT resection, on broad spectrum antibiotics. We will discuss with ID antibiotic regimen moving forward as patient may require a PICC line with OPAT. Pt was confused overnight. Pt is afebrile and vitals remain stable, he is atremulous, and he does not endorse any hallucinations. He has been taking increased pain meds after surgery, which is likely the cause of his confusion. This morning pt is fully oriented and thought are linear/clear/goal directed. ?? Plan: # Osteomyelitis of Left 4th Metatarsal s/p resection # Septic Arthritis of 4th MTP Joint - cefazolin 2g q8h - flagyl 500 q8h - ID recommendations - orthopedics recommendations: - drain remains in-place, call prior to d/c - wound care consulted - follow-up blood and bone cultures - proximal bone: no growth to date - physical therapy consulted ?? # Severe Alcohol Use Disorder without Complication # Peripheral neuropathy 2/2 alcohol use # Opioid use disorder - gabapentin 1200mg bid - continue home methadone - thiamine 100mg daily - nicotine patch daily ?? # Gastroparesis - chronic - monitor electrolytes - zofran 4mg iv prn # Mild hyponatremia - resolved - daily bmp ?? # COPD, Gold 2 - duonebs prn ?? # HTN - lisinopril 20mg daily (started this admission) - metoprolol tartrate 25 q6h (home succinate 100) ?? # Diet: [facility] CC Diet # DVT Ppx: enoxaparin # Decision maker: Self or # Code Status: Full Loly Amaya MD Internal Medicine, PGY-1 Medicine Team Pager #[phone] 03/12/2020 Associated attestation - Leonela Sandhu MD - 03/13/2020 10:31 AM EST Attending Attestation Please see Dr Loly Amaya's note for details of the patient history of presentation and data. I have discussed, reviewed and agree with the documented History, Physical findings, Assessment and Plan of care. I have examined the patient myself and personally reviewed all studies. In addition, I certify that I am a D-H credentialed attending provider with admitting privileges and that the patient meets or has met medical necessity to require an inpatient IPI level of care meeting a minimum of two midnights or is on the [facility] inpatient only procedure list (status C) due to: Septic Arthritis of 4th MTP Joint and Osteomyelitis of Left 4th Metatarsal s/p resection. Dulce Maria Garcia MD - 03/12/2020 6:21 AM EST ORTHOPAEDIC SURGERY INPATIENT PROGRESS NOTE Patient Name: Soledad Ramos Age: 64 y.o. Surgery/Issue: Left 4th MT ray resection for osteo Attending: Dr. Lewis Date of surgery: 03/10/2020 SUBJECTIVE / INTERVAL HISTORY: No acute events overnight though nursing does note that he was increasingly confused overnight and did attempt to get up and walk very breifly. Patient denies any pain in his left foot. Drain is in place. Mr. Ramos denies chest pain, shortness of breath, nausea, vomiting, numbness/weakness. Pain well-controlled. Afebrile. Intraop clx - bone from infected MT GPCs, Gram neg rods, rare gram positive rods. Pasteurella multocida Proximal bone cultures without growth to date FOCUSED REVIEW OF SYSTEMS: as above. Active Hospital Problems Diagnosis ??? s/p L 4th ray amp for osteo, 03/10/2020 [place] ??? Osteomyelitis Resolved Hospital Problems No resolved problems to display. Active Non-Hospital Problems Diagnosis ??? Neuropathic ulcer of toe of right foot with fat layer exposed ??? Cellulitis of leg, right ??? Neuropathic ulcer of foot, left, with fat layer exposed ??? Neuropathic ulcer of foot, right, with fat layer exposed ??? SDH (subdural hematoma) ??? Avascular necrosis of humeral head ??? Pain in left shoulder ??? S/P L TKA 12/13/15 Dr. Mallory ??? Cirrhosis ??? Ankle fracture, left ??? Polysubstance abuse ??? Avascular necrosis bilateral knees ??? Confusion ??? Community acquired pneumonia ??? Imbalance ??? Hepatitis C ??? Alcohol dependence ??? Anixety D/O NOS ??? ADHD NOS ??? Chronic back pain ??? Major depressive disorder, single episode, unspecified MEDICATIONS: ??? metroNIDAZOLE (Flagyl) tablet 500 mg ??? HYDROmorphone (DILAUDID) injection 0.2 mg OR HYDROmorphone (DILAUDID) injection 0.4 mg OR HYDROmorphone (DILAUDID) injection 0.6 mg ??? calcium carbonate (Tums) chewable tablet 500 mg ??? gabapentin (Neurontin) capsule 600 mg ??? methadone (Dolophine) (10 mg/mL) oral liquid 82 mg ??? lisinopriL (Prinivil;Zestril) tablet 20 mg ??? enoxaparin (LOVENOX) injection 40 mg ??? metoclopramide (Reglan) tablet 10 mg ??? metoprolol tartrate (Lopressor) tablet 25 mg ??? sodium chloride 0.9 % (flush) flush 5 mL ??? sodium chloride 0.9 % (flush) flush 5-20 mL ??? lidocaine (XYLOCAINE) 10 mg/mL (1 %) injection 3 mg ??? acetaminophen (Tylenol) tablet 650 mg ??? nicotine (NICODERM CQ) 21 mg/24 hr patch 21 mg AND nicotine (NICODERM CQ) 21 mg/24 hr patch Patch Verification AND nicotine (NICODERM CQ) 21 mg/24 hr patch Patch Removal ??? melatonin tablet 3 mg ??? thiamine (Vitamin B1) tablet 100 mg ??? busPIRone (Buspar) tablet 15 mg ??? QUEtiapine (SEROquel) tablet 25 mg ??? pantoprazole EC (Protonix) tablet 40 mg OBJECTIVE: Temp: [36.6 ??C (97.9 ??F)-37.1 ??C (98.8 ??F)] Heart Rate: [72] Resp: [16-18] BP: (100-175)/(63-123) Intake/Output Summary (Last 24 hours) at 03/12/2020 0621 Last data filed at 03/11/20202019 Gross per 24 hour Intake 240 ml Output 605 ml Net -365 ml Body mass index is 29.53 kg/m??. PE: General: awake/alert, responds to questions CV: RRR assessed peripherally Resp: Breathing comfortably on RA LLE: Dressing and splint c/d/i Sensory largely diminished at baseline of foot, but states can appreciate some pressure to touch in exposed toes (baseline) Motor intact to FHL/EHL, knee extension/flexion, hip extension/flexion Brisk capillary refill distally, toes warm/well-perfused Lab Results Component Value Date NA 135 03/12/2020 K 3.7 03/12/2020 CL 101 03/12/2020 CO2 24 03/12/2020 BUN 7 (L) 03/12/2020 CREATININE 0.73 (L) 03/12/2020 GLUCOSE 112 03/10/2020 GLUCFASTING 77 03/12/2020 CALCIUM 9.2 03/12/2020 Lab Results Component Value Date WBC 10.3 (H) 03/12/2020 HGB 12.2 (L) 03/12/2020 HCT 36.4 (L) 03/12/2020 MCV 94.5 (H) 03/12/2020 PLATELET 308 03/12/2020 Lab Results Component Value Date INR 1.1 03/10/2020 IMAGING: Results for orders placed or performed during the hospital encounter of 03/09/20 MRI Foot wo Contrast Left (Exam End: 03/09/2020 2:52 PM) Impression Severe motion artifact. Plantar ulcer extending to the fourth metatarsal head with osteomyelitis of the fourth proximal phalanx and the fourth metatarsal extending to the proximal shaft and also septic arthritis of the fourth MTP joint that is contiguous with a gas containing fluid collection at its dorsal aspect. Thank you for letting us participate in the care of this patient. For questions regarding this report, please contact the number below. Foot Min 3 views Left (Generic) (Exam End: 03/09/2020 4:50 PM) Impression Findings are concerning for osteomyelitis of the head of the fourth metatarsal. Thank you for letting us participate in the care of this patient. For questions regarding this report, please contact the number below. Foot 2 views Left (Exam End: 03/10/2020 9:23 PM) Impression 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 Thank you for letting us participate in the care of this patient. For questions regarding this report, please contact the number below. SSMENT / PLAN: Soledad Ramos is a 64 y.o. male 2 Days Post-Op S/P 4th MT ray resection for osteo. Doing well post-operatively. On cefazolin and flagyl. Will leave drain in at this point but plan will be fore removal prior to discharge. Please page #[phone] if patient is to be discharged today. Activity: NWB LLE DVT prophylaxis: recommend lovenox inpatient Closure: Prolene out ~04/01 Dressing: splint Antibiotics: kim Gacria MD 03/12/2020 Future Appointments Date Time Provider Department Center 03/17/2020 3:10 PM [facility] MR NURSE MRI [facility] 03/17/2020 4:10 PM [facility] MR 6 MRI [facility] 03/22/2020 3:30 PM Maia Gómez DPM Pod [facility] 03/22/2020 4:00 PM Niki Stockton APRN Wound [facility] Associated attestation - Geovanna Lewis MD - 03/14/2020 6:59 AM EST Patient seen and examined. Agree with resident note. Dania Lewis MD Department of Orthopaedics 03/14/20 Chioma Patterson MD - 03/11/2020 9:21 AM EDT Inpatient Medicine Progress Note Hospital Day 2 days Active Hospital Problems Diagnosis ??? s/p L 4th ray amp for osteo, 03/10/2020 Joshua ??? Osteomyelitis Resolved Hospital Problems No resolved problems to display. ID: Pt is a 64 year-old male with a past medical history of GOLD 2 COPD, active smoker, chronic elevation of the right hemidiaphragm, depression, hepatitic C, cirrhosis, peripheral neuropathy secondaryto alcohol dependence, hypertension, hyperlipidemia, gout, prior amputation secondary to osteomyelitis, and chronic bilateral foot ulcers who presents to the [facility] now s/p left 4th metatarsal resection. 24 Hour Events: -POD1 s/p L 4th MT resection -Urinary retention, required straight cath overnight -Transitioned to cefepime and flagyl as per ID -Minimal pain this morning, feels well, no cough, fevers, chills, dysuria, nausea, vomiting ROS: Denies fevers/chills, chest pain, shortness of breath, diarrhea/constipation, muscle aches or weakness. Vitals: Last value Range last 24 hrs Temperature Temp: 36.6 ??C (97.9 ??F) Temp: [36.3 ??C (97.3 ??F)-36.8 ??C (98.2 ??F)] Heart Rate Heart Rate: 83 Heart Rate: [58-84] Blood Pressure BP: 137/79 BP: (119-186)/(68-114) Respiratory Rate Resp: 16 Resp: [12-20] SpO2 SpO2: 96 % SpO2: [77 %-98 %] Patient Vitals for the past 168 hrs: Weight 03/09/20 0849 90.7 kg (200 lb) Ins/Outs: Intake/Output Summary (Last 24 hours) at 03/11/2020 0921 Last data filed at 03/11/2020 0858 Gross per 24 hour Intake 490 ml Output 735 ml Net -245 ml Physical Exam: General: pleasant male in no acute distress HEENT: PERRL, Moist oropharynx Heart: RR, S1 and S2 auscultated, systolic murmur best heard at apex Lungs: Clear to auscultation Abdomen: Active BS, Soft, NTTP Left lower extremity: JUDE wrapped to knee with drain with SS fluid. RLE with chronic ulcers but no erythema, pus, warmth, or swelling ?? Laboratory: CBC: WBC 11 (from 10.5), Hgb 12.3 (13.8), Plt 316 Chemistry: Na 133 (136) Cr 0.77 Microbiology: Wound cultures left foot ulcer 03/07: moderate staphylococcus aureus, moderate beta hemolytic streptococci, not group A or B Intraop clx - bone #3: GPCs, Gram neg rods, rare gram positive rods - bone #2: GPCs Imaging / Diagnostic Studies: MRI Left Foot wo Contrast IMPRESSION Severe motion artifact. Plantar ulcer extending to the fourth metatarsal head with osteomyelitis of the fourth proximal phalanx and the fourth metatarsal extending to the proximal shaft and also septic arthritis of the fourth MTP joint that is contiguous with a gas containing fluid collection at its dorsal aspect. ?? XR L Foot Findings are concerning for osteomyelitis of the head of the fourth metatarsal. ?? DVT LLE?? LEFT: ??No evidence of lower extremity deep venous thrombosis Assessment: Pt is a 64 year-old male with a past medical history of GOLD 2 COPD, active smoker, chronic elevation of the right hemidiaphragm, depression, hepatitic C, cirrhosis, peripheral neuropathy secondary to alcohol dependence, hypertension, hyperlipidemia, gout, prior amputation secondary to osteomyelitis, and chronic bilateral foot ulcers who presents to the [facility]. ?? He is POD1 s/p L 4 MT resection, on broad spectrum antibiotics. We will discuss with ID antibiotic regimen moving forward as patient may require a PICC line. Will continue to monitor over the weekend. ?? Plan: # Osteomyelitis of Left 4th Metatarsal s/p resection # Septic Arthritis of 4th MTP Joint - cefazolin 2g q8h - flagyl 500 q8h - ID recommendations - orthopedics recommendations - wound care consulted - follow-up blood and bone cultures - physical therapy consulted ?? # Severe Alcohol Use Disorder without Complication # Peripheral neuropathy 2/2 alcohol use # Opioid use disorder - gabapentin 1200mg bid - continue home methadone - thiamine 100mg daily - nicotine patch daily ?? # Gastroparesis - chronic - monitor electrolytes - zofran 4mg iv prn # Mild hyponatremia - resolved - daily bmp ?? # COPD, Gold 2 - duonebs prn ?? # HTN - lisinopril 20mg daily (started this admission) - metoprolol tartrate 25 q6h (home succinate 100) ?? # Diet: [facility]. [facility] Diet # DVT Ppx: enoxaparin # Decision maker: Self or # Code Status: Full Chioma Patterson MD Internal Medicine, PGY - 3 Medicine Team Pager #[phone] 03/11/2020 Associated attestation - Leonela Sandhu MD - 03/13/2020 10:30 AM EST Attending Attestation Please see Dr Chioma Patterson's note for details of the patient history of presentation and data. I have discussed, reviewed and agree with the documented History, Physical findings, Assessment and Plan of care. I have examined the patient myself and personally reviewed all studies. In addition, I certify that I am a [facility]-H credentialed attending provider with admitting privileges and that the patient meets or has met medical necessity to require an inpatient IPI level of care meeting a minimum of two midnights or is on the [facility] inpatient only procedure list (status C) due to: Septic Arthritis of 4th MTP Joint and Osteomyelitis of Left 4th Metatarsal s/p resection. Arjun Sandoval MD - 03/11/2020 5:44 AM EDT ORTHOPAEDIC SURGERY INPATIENT PROGRESS NOTE Patient Name: Soledad Ramos Age: 64 y.o. Surgery/Issue: Left 4th MT ray resection for osteo Attending: Dr. Lewis Date of surgery: 03/10/2020 SUBJECTIVE / INTERVAL HISTORY: No acute events overnight. Mr. Ramos denies chest pain, shortness of breath, nausea, vomiting, numbness/weakness. Pain well-controlled. Afebrile. Intraop clx - bone #3: GPCs, Gram neg rods, rare gram positive rods - bone #2: GPCs FOCUSED REVIEW OF SYSTEMS: as above. Active Hospital Problems Diagnosis ??? s/p L 4th ray amp for osteo, 03/10/2020 [place] ??? Osteomyelitis Resolved Hospital Problems No resolved problems to display. Active Non-Hospital Problems Diagnosis ??? Neuropathic ulcer of toe of right foot with fat layer exposed ??? Cellulitis of leg, right ??? Neuropathic ulcer of foot, left, with fat layer exposed ??? Neuropathic ulcer of foot, right, with fat layer exposed ??? SDH (subdural hematoma) ??? Avascular necrosis of humeral head ??? Pain in left shoulder ??? S/P L TKA 12/13/15 Dr. Mallory ??? Cirrhosis ??? Ankle fracture, left ??? Polysubstance abuse ??? Avascular necrosis bilateral knees ??? Confusion ??? Community acquired pneumonia ??? Imbalance ??? Hepatitis C ??? Alcohol dependence ??? Anixety D/O NOS ??? ADHD NOS ??? Chronic back pain ??? Major depressive disorder, single episode, unspecified MEDICATIONS: ??? calcium carbonate (Tums) chewable tablet 500 mg ??? gabapentin (Neurontin) capsule 600 mg ??? methadone (Dolophine) (10 mg/mL) oral liquid 82 mg ??? lisinopriL (Prinivil;Zestril) tablet 20 mg ??? enoxaparin (LOVENOX) injection 40 mg ??? metoclopramide (Reglan) tablet 10 mg ??? HYDROmorphone (DILAUDID) injection 0.4-0.6 mg ??? metroNIDAZOLE (Flagyl) 500 mg in sodium chloride 0.9% 100 mL infusion ??? ceFAZolin (Ancef) 2 g in dextrose 5% 100 mL infusion ??? metoprolol tartrate (Lopressor) tablet 25 mg ??? sodium chloride 0.9 % (flush) flush 5 mL ??? sodium chloride 0.9 % (flush) flush 5-20 mL ??? lidocaine (XYLOCAINE) 10 mg/mL (1 %) injection 3 mg ??? acetaminophen (Tylenol) tablet 650 mg ??? nicotine (NICODERM CQ) 21 mg/24 hr patch 21 mg AND nicotine (NICODERM CQ) 21 mg/24 hr patch Patch Verification AND nicotine (NICODERM CQ) 21 mg/24 hr patch Patch Removal ??? melatonin tablet 3 mg ??? thiamine (Vitamin B1) tablet 100 mg ??? busPIRone (Buspar) tablet 15 mg ??? QUEtiapine (SEROquel) tablet 25 mg ??? pantoprazole EC (Protonix) tablet 40 mg OBJECTIVE: Temp: [36.3 ??C (97.3 ??F)-36.8 ??C (98.3 ??F)] Heart Rate: [58-84] Resp: [12-20] BP: (119-194)/(68-114) Intake/Output Summary (Last 24 hours) at 03/11/2020 0544 Last data filed at 03/11/2020 0400 Gross per 24 hour Intake 250 ml Output 635 ml Net -385 ml Body mass index is 29.53 kg/m??. PE: General: awake/alert, responds to questions CV: RRR assessed peripherally Resp: Breathing comfortably on 2L NC LLE: Dressing and splint c/d/i; drain in place Sensory largely diminished at baseline of foot, but states can appreciate some pressure to touch in exposed toes (baseline) Motor intact to FHL/EHL, knee extension/flexion, hip extension/flexion Brisk capillary refill distally, foot warm/well-perfused, DP 2+ Lab Results Component Value Date NA 133 (L) 03/11/2020 K 3.9 03/11/2020 CL 98 03/11/2020 CO2 26 03/11/2020 BUN 8 (L) 03/11/2020 CREATININE 0.77 (L) 03/11/2020 GLUCOSE 112 03/10/2020 GLUCFASTING 80 03/11/2020 CALCIUM 9.2 03/11/2020 Lab Results Component Value Date WBC 11.0 (H) 03/11/2020 HGB 12.3 (L) 03/11/2020 HCT 37.1 (L) 03/11/2020 MCV 94.9 (H) 03/11/2020 PLATELET 316 03/11/2020 Lab Results Component Value Date INR 1.1 03/10/2020 IMAGING: Results for orders placed or performed during the hospital encounter of 03/09/20 MRI Foot wo Contrast Left (Exam End: 03/09/2020 2:52 PM) Impression Severe motion artifact. Plantar ulcer extending to the fourth metatarsal head with osteomyelitis of the fourth proximal phalanx and the fourth metatarsal extending to the proximal shaft and also septic arthritis of the fourth MTP joint that is contiguous with a gas containing fluid collection at its dorsal aspect. Thank you for letting us participate in the care of this patient. For questions regarding this report, please contact the number below. Foot Min 3 views Left (Generic) (Exam End: 03/09/2020 4:50 PM) Impression Findings are concerning for osteomyelitis of the head of the fourth metatarsal. Thank you for letting us participate in the care of this patient. For questions regarding this report, please contact the number below. SSMENT / PLAN: Soledad Ramos is a 64 y.o. male 1 Day Post-Op S/P 4th MT ray resection for osteo. Doing well post-operatively. Continue to monitor UOP. Activity: NWB LLE DVT prophylaxis: recommend lovenox inpatient Closure: Prolene out ~04/01 Dressing: splint Antibiotics: kim Sandoval MD 03/11/2020 Future Appointments Date Time Provider Department Center 03/17/2020 3:10 PM [facility] MR NURSE [facility] Rad 03/17/2020 4:10 PM [facility] MR 6 MRI [facility] 03/22/2020 3:30 PM Maia Gómez DPM [place] [facility] 03/22/2020 4:00 PM Niki Stockton APRN Wound [facility] Associated attestation - Geovanna Lewis MD - 03/14/2020 6:57 AM EST Patient seen and examined. Agree with resident note. Dania Lewis MD Department of Orthopaedics 03/14/20 [place] MD - 03/10/2020 9:41 PM EDT ORTHOPAEDIC SURGERY INPATIENT PROGRESS NOTE Patient Name: Soledad Ramos Age: 64 y.o. Surgery/Issue: 4th MT ray resection for osteo Attending: Dr. Lewis Date of surgery: 03/10/2020 SUBJECTIVE / INTERVAL HISTORY: Patient denies chest pain, shortness of breath, nausea, vomiting, numbness/weakness. Pain well-controlled. Has not urinated since his procedure, denies bladder fullness/pain. FOCUSED REVIEW OF SYSTEMS: as above. Active Hospital Problems Diagnosis ??? s/p L 4th ray amp for osteo, 03/10/2020 Joshua ??? Osteomyelitis Resolved Hospital Problems No resolved problems to display. Active Non-Hospital Problems Diagnosis ??? Neuropathic ulcer of toe of right foot with fat layer exposed ??? Cellulitis of leg, right ??? Neuropathic ulcer of foot, left, with fat layer exposed ??? Neuropathic ulcer of foot, right, with fat layer exposed ??? SDH (subdural hematoma) ??? Avascular necrosis of humeral head ??? Pain in left shoulder ??? S/P L TKA 12/13/15 Dr. Mallory ??? Cirrhosis ??? Ankle fracture, left ??? Polysubstance abuse ??? Avascular necrosis bilateral knees ??? Confusion ??? Community acquired pneumonia ??? Imbalance ??? Hepatitis C ??? Alcohol dependence ??? Anixety D/O NOS ??? ADHD NOS ??? Chronic back pain ??? Major depressive disorder, single episode, unspecified MEDICATIONS: ??? calcium carbonate (Tums) chewable tablet 500 mg ??? gabapentin (Neurontin) capsule 600 mg ??? methadone (Dolophine) (10 mg/mL) oral liquid 82 mg ??? lisinopriL (Prinivil;Zestril) tablet 20 mg ??? enoxaparin (LOVENOX) injection 40 mg ??? metoclopramide (Reglan) tablet 10 mg ??? HYDROmorphone (DILAUDID) injection 0.4-0.6 mg ??? metroNIDAZOLE (Flagyl) 500 mg in sodium chloride 0.9% 100 mL infusion ??? ceFAZolin (Ancef) 2 g in dextrose 5% 100 mL infusion ??? metoprolol tartrate (Lopressor) tablet 25 mg ??? sodium chloride 0.9 % (flush) flush 5 mL ??? sodium chloride 0.9 % (flush) flush 5-20 mL ??? lidocaine (XYLOCAINE) 10 mg/mL (1 %) injection 3 mg ??? acetaminophen (Tylenol) tablet 650 mg ??? nicotine (NICODERM CQ) 21 mg/24 hr patch 21 mg AND nicotine (NICODERM CQ) 21 mg/24 hr patch Patch Verification AND nicotine (NICODERM CQ) 21 mg/24 hr patch Patch Removal ??? melatonin tablet 3 mg ??? thiamine (Vitamin B1) tablet 100 mg ??? busPIRone (Buspar) tablet 15 mg ??? QUEtiapine (SEROquel) tablet 25 mg ??? pantoprazole EC (Protonix) tablet 40 mg OBJECTIVE: Temp: [36.6 ??C (97.9 ??F)-36.8 ??C (98.3 ??F)] Heart Rate: [58-84] Resp: [12-20] BP: (119-194)/(68-114) Intake/Output Summary (Last 24 hours) at 03/10/20205 Last data filed at 03/10/2020 1741 Gross per 24 hour Intake 250 ml Output 250 ml Net 0 ml Body mass index is 29.53 kg/m??. PE: General: awake/alert, responds to questions CV: RRR assessed peripherally Resp: Breathing comfortably on 4L NC LLE: Dressing c/d/i Sensory intact to light touch in lat fem cut/fem/sural/saph/SP/DP Motor intact to FHL/EHL, knee extension/flexion, hip extension/flexion Brisk capillary refill distally, foot warm/well-perfused, DP 2+ Lab Results Component Value Date NA 136 03/10/2020 K 4.0 03/10/2020 CL 99 03/10/2020 CO2 27 03/10/2020 BUN 6 (L) 03/10/2020 CREATININE 0.74 (L) 03/10/2020 GLUCOSE 112 03/10/2020 GLUCFASTING 81 04/07/2019 CALCIUM 9.8 03/10/2020 Lab Results Component Value Date WBC 10.5 (H) 03/10/2020 HGB 13.8 03/10/2020 HCT 42.4 03/10/2020 MCV 94.0 (H) 03/10/2020 PLATELET 331 03/10/2020 Lab Results Component Value Date INR 1.1 03/10/2020 IMAGING: Results for orders placed or performed during the hospital encounter of 03/09/20 MRI Foot wo Contrast Left (Exam End: 03/09/2020 2:52 PM) Impression Severe motion artifact. Plantar ulcer extending to the fourth metatarsal head with osteomyelitis of the fourth proximal phalanx and the fourth metatarsal extending to the proximal shaft and also septic arthritis of the fourth MTP joint that is contiguous with a gas containing fluid collection at its dorsal aspect. Thank you for letting us participate in the care of this patient. For questions regarding this report, please contact the number below. Foot Min 3 views Left (Generic) (Exam End: 03/09/2020 4:50 PM) Impression Findings are concerning for osteomyelitis of the head of the fourth metatarsal. Thank you for letting us participate in the care of this patient. For questions regarding this report, please contact the number below. SSMENT / PLAN: Soledad Ramos is a 64 y.o. male Day of Surgery S/P 4th MT ray resection for osteo. Doing well post-operatively. Continue to monitor UOP. Activity: NWB LLE DVT prophylaxis: recommend lovenox inpatient Closure: Prolene out ~04/01 Dressing: splint Antibiotics: kim White MD 03/10/2020 Future Appointments Date Time Provider Department Center 03/17/2020 3:10 PM [facility] NURSE MRI [facility] Rad 03/17/2020 4:10 PM [facility] MR 6 MRI [facility] 03/22/2020 3:30 PM Maia Gómez DPM Pod [facility] 03/22/2020 4:00 PM Niki Stockton APRN Wound [facility] Associated attestation - Geovanna Lewis MD - 03/14/2020 6:57 AM EST Patient seen and examined. Agree with resident note. Dania Lewis MD Department of Orthopaedics 03/14/20 Brittani Patrick RN - 03/10/2020 5:23 PM EDT 1705 pt admitted s/p left toe amp. Monitors attached and alarms set. Report received from OR team. Pt awake, alert, denies pain on admission. Follows commands. WCM Loly Amaya MD - 03/10/2020 7:14 AM EDT Inpatient Medicine Progress Note Hospital Day 1 day Active Hospital Problems Diagnosis ??? Osteomyelitis Resolved Hospital Problems No resolved problems to display. ID: Pt is a 64 year-old male with a past medical history of GOLD 2 COPD, active smoker, chronic elevation of the right hemidiaphragm, depression, hepatitic C, cirrhosis, peripheral neuropathy secondaryto alcohol dependence, hypertension, hyperlipidemia, gout, prior amputation secondary to osteomyelitis, and chronic bilateral foot ulcers who presents to the [facility]. 24 Hour Events: 03/09: HDS and afebrile. Clinically well appearing. Holding antibiotics. NPO midnight for OR tomorrow. History of 3 beers daily and opioid use on methadone, started CIWA scale. - 2229 Pt hypertensive 183/. Not agitated. Not triggering alcohol withdrawal protocol (only pointsfor HTN). - 0: spoke to his regarding home meds after pharm called me about discrepancies between whatwas ordered and what records say. She manages all of his meds and gives them to him daily. Said he is no longer taking chlorthalidone Other meds as listed: - buspar 15 mg BID - pantoprazole 40 mg BID - metoprolol 100 mg daily - quetiapine 25 mg PRN nightly - gabapentin 600 mg once daily PRN Also alcohol withdrawal protocol d/c bc says lately he has barely been drinking at all since they stopped buying alcohol to save money. 3am: pt had upset stomach, received tums Subjective: Pt is feeling well this am. He is having increased pain in his L foot and is unable to ambulate. He complains of nausea, and vomiting this morning, but denies abdominal pain. ROS: Denies fevers/chills, chest pain, shortness of breath, diarrhea/constipation, muscle aches or weakness. Vitals: Last value Range last 24 hrs Temperature Temp: 36.8 ??C (98.3 ??F) Temp: [36.7 ??C (98 ??F)-36.8 ??C (98.3 ??F)] Heart Rate Heart Rate: 70 Heart Rate: [70] Blood Pressure BP: 194/87 BP: (170-194)/(83-93) Respiratory Rate Resp: 20 Resp: [17-20] SpO2 SpO2: 96 % SpO2: [90 %-96 %] Patient Vitals for the past 168 hrs: Weight 03/09/20 0849 90.7 kg (200 lb) Ins/Outs: Intake/Output Summary (Last 24 hours) at 03/10/2020 0946 Last data filed at 03/09/20202127 Gross per 24 hour Intake 5 ml Output -- Net 5 ml Physical Exam: General: pleasant male in no acute distress HEENT: PERRL, Moist oropharynx Heart: RR, S1 and S2 auscultated, systolic murmur best heard at apex Lungs: Clear to auscultation Abdomen: Active BS, Soft, NTTP Left lower extremity: circumferential erythema extending to the mid-sims with ring exudate and malodor from left plantar foot ulcer. Left dorsal foot with toe. Edema to mid-sims. DP/PT pulses palpated bilaterally. Right lower extremity: chronic wounds without any ulcers or pus Neuro: CN intact to observation, No dysphasia, focal weakness. Sensation deficit below bilateral mid-sims. ?? Laboratory: CBC: WBC 10.5 (from 13.7) Chemistry: Cr. 0.74 (from 0.94) Microbiology: Wound cultures left foot ulcer 03/07: moderate staphylococcus aureus, moderate beta hemolytic streptococci, not group A or B Imaging / Diagnostic Studies: MRI Left Foot wo Contrast IMPRESSION Severe motion artifact. Plantar ulcer extending to the fourth metatarsal head with osteomyelitis of the fourth proximal phalanx and the fourth metatarsal extending to the proximal shaft and also septic arthritis of the fourth MTP joint that is contiguous with a gas containing fluid collection at its dorsal aspect. ?? XR L Foot Findings are concerning for osteomyelitis of the head of the fourth metatarsal. ?? DVT LLE?? LEFT: ??No evidence of lower extremity deep venous thrombosis Assessment: Pt is a 64 year-old male with a past medical history of GOLD 2 COPD, active smoker, chronic elevation of the right hemidiaphragm, depression, hepatitic C, cirrhosis, peripheral neuropathy secondary to alcohol dependence, hypertension, hyperlipidemia, gout, prior amputation secondary to osteomyelitis, and chronic bilateral foot ulcers who presents to the [facility]. ?? Plan for OR today with ortho. Given his clinical stability will hold all antibiotics until bone cultures can be obtained in the OR, with plan to start abx after surgery. Given his history of alcohol use and opioid dependence on methadone, we will continue CIWA for 48hrs duration. Gastroparesis with n/v is chronic for pt. ?? Plan: # Osteomyelitis of Left 4th Metatarsal # Septic Arthritis of 4th MTP Joint - start antibiotics after culture of bone obtained - consider ID involvement - orthopedics consulted, planning for OR - wound care consulted - follow-up blood cultures - physical therapy consulted ?? # Severe Alcohol Use Disorder without Complication # Peripheral neuropathy 2/2 alcohol use # Opioid use disorder - gabapentin 1200mg bid - continue home methadone - CIWA ativan assessment scale, 48hrs - thiamine 100mg daily - nicotine patch daily ?? # Gastroparesis - chronic - monitor electrolytes - zofran 4mg iv prn # Mild hyponatremia - resolved - daily bmp ?? # COPD, Gold 2 - duonebs prn ?? # HTN - lisinopril 20mg today - metoprolol tartrate 25 q6h (home succinate 100) ?? # Diet: [facility]. NPO at midnight. # DVT Ppx: Hold, restart at midnight # Decision maker: Self or # Code Status: Full Loly Amaya MD Internal Medicine, PGY - 1 Medicine Team Pager #[phone] 03/10/2020 Candi Horvath MD - 03/10/2020 6:39 AM EDT ORTHOPAEDIC SURGERY INPATIENT PROGRESS NOTE Patient Name: Soledad Ramos Age: 64 y.o. Surgery/Issue: L 4th toe osteo, pended for ray resection Attending: Joshua Date of surgery: expected 03/10/2020 SUBJECTIVE / INTERVAL HISTORY: No issues ON Patient is comfortable, no pain HgB 13.3, WBC 13.7 No nausea or vomiting FOCUSED REVIEW OF SYSTEMS: as above. Active Hospital Problems Diagnosis ??? Osteomyelitis Resolved Hospital Problems No resolved problems to display. Active Non-Hospital Problems Diagnosis ??? Neuropathic ulcer of toe of right foot with fat layer exposed ??? Cellulitis of leg, right ??? Neuropathic ulcer of foot, left, with fat layer exposed ??? Neuropathic ulcer of foot, right, with fat layer exposed ??? SDH (subdural hematoma) ??? Avascular necrosis of humeral head ??? Pain in left shoulder ??? S/P L TKA 12/13/15 Dr. Mallory ??? Cirrhosis ??? Ankle fracture, left ??? Polysubstance abuse ??? Avascular necrosis bilateral knees ??? Confusion ??? Community acquired pneumonia ??? Imbalance ??? Hepatitis C ??? Alcohol dependence ??? Anixety D/O NOS ??? ADHD NOS ??? Chronic back pain ??? Major depressive disorder, single episode, unspecified MEDICATIONS: ??? calcium carbonate (Tums) chewable tablet 500 mg ??? methadone (Dolophine) tablet 82.5 mg ??? metoprolol tartrate (Lopressor) tablet 25 mg ??? sodium chloride 0.9 % (flush) flush 5 mL ??? sodium chloride 0.9 % (flush) flush 5-20 mL ??? lidocaine (XYLOCAINE) 10 mg/mL (1 %) injection 3 mg ??? acetaminophen (Tylenol) tablet 650 mg ??? nicotine (NICODERM CQ) 21 mg/24 hr patch 21 mg AND nicotine (NICODERM CQ) 21 mg/24 hr patch Patch Verification AND nicotine (NICODERM CQ) 21 mg/24 hr patch Patch Removal ??? melatonin tablet 3 mg ??? thiamine (Vitamin B1) tablet 100 mg ??? gabapentin (Neurontin) capsule 600 mg ??? busPIRone (Buspar) tablet 15 mg ??? QUEtiapine (SEROquel) tablet 25 mg ??? pantoprazole EC (Protonix) tablet 40 mg OBJECTIVE: Temp: [36.1 ??C (97 ??F)-36.8 ??C (98.3 ??F)] Heart Rate: [63-68] Resp: [17-20] BP: (143-183)/(77-112) Intake/Output Summary (Last 24 hours) at 03/10/2020 0639 Last data filed at 03/09/2020 6738 Gross per 24 hour Intake 5 ml Output -- Net 5 ml BMI: Weight: 90.7 kg (200 lb) (03/09/20 0849) BMI (Calculated): 29.53 BMI Classification: Over Weight Body mass index is 29.53 kg/m??. PE: General: awake/alert, responds to questions CV: RRR assessed peripherally Resp: Breathing comfortably on RA LLE: Plantar ulcer at 4th MT Malodorous Erythema at dorsal foot Decreased sensation in foot, insensate from midfoot distal Motor intact to FHL/EHL/TA, knee extension/flexion, hip extension/flexion Brisk capillary refill distally, foot warm/well-perfused Lab Results Component Value Date NA 133 (L) 03/09/2020 K Not Perf 03/09/2020 CL 93 (L) 03/09/2020 CO2 27 03/09/2020 BUN 7 (L) 03/09/2020 CREATININE 0.94 03/09/2020 GLUCOSE Not Perf 03/09/2020 GLUCFASTING 81 04/07/2019 CALCIUM 10.0 03/09/2020 Lab Results Component Value Date WBC 13.7 (H) 03/09/2020 HGB 13.3 (L) 03/09/2020 HCT 41.3 03/09/2020 MCV 95.8 (H) 03/09/2020 PLATELET 364 (H) 03/09/2020 Lab Results Component Value Date INR 1.1 03/09/2020 IMAGING: MRI L foot: L4th proximal phalanx and 4th MT osteo. Previous 5th MT ray amp ASSESSMENT / PLAN: Soledad Ramos is a 64 y.o. male with L 4th MT and proximal fx osteomyelitis in the setting of chronic ulcer. Patient is NPO, and pending for OR today. Not on antibiotics, stable. - Activity: WBAT BLE - NPO Candi Horvath MD 03/10/2020 Future Appointments Date Time Provider Department Center 03/15/2020 4:45 PM Niki Stockton APRN Wound [facility] 03/17/2020 3:10 PM [facility] MR NURSE MRI [facility] 03/17/2020 4:10 PM [facility] MR 6 MRI [facility] 03/22/2020 3:30 PM Maia Gómez DPM Pod [facility] 03/22/2020 4:00 PM Niki Stockton APRN Wound [facility] Associated attestation - Geovanna Lewis MD - 03/10/2020 6:53 AM EDT Patient seen and examined. Agree with resident note. Dania Lewis MD Department of Orthopaedics 03/10/20 documented in this encounter H&P Notes Candi Horvath MD - 03/10/2020 6:31 AM EDT Patient Name: Soledad Ramos Patient Age: 64 y.o. Birthdate: 1955 Admit date: 03/09/2020 Attending Physician: Robert Grider MD 24-HOUR UPDATE The patient's history and physical exam have been reviewed and completed. There has been no intervalchange from that of the pre-operative history and physical exam done within the last 30 days. Soledad Ramos is a 64 y.o. male with Hepatitis C, cirrhosis, alcoholic neuropathy, COPD, HTN, HLD, L 5th toe amputation who presents with concern for osteomyelitis of his L 4th metatarsal. Patient wasevaluated this morning. We discussed his imaging and pathology, with MRI showing signal changes of left fourth proximal phalanx and MT, indicative of osteomyelitis. We discussed treatment option with A4th ray amputation, with potential for TMA. We plan to proceed with 4th ray amp, with Irrigation anddebridement. He is aware he may need multiple procedures, including delayed closure, and potential IV antibiotic treatment pending intraop cultures. Associated attestation - Geovanna Lewis MD - 03/10/2020 6:48 AM EDT I have seen the patient and reviewed the attached history/physical and I agree with the details as written. The assessment and plan were formulated in discussion with me and I agree with them as documented. Dania Lewis MD Department of Orthopaedics 03/10/2020 Chioma Patterson MD - 03/09/2020 5:05 PM EDT Images from the original note were not included. Admission History & Physical Internal Medicine ID: 64 year-old male with a past medical history of GOLD 2 COPD, active smoker, chronic elevation of theright hemidiaphragm, hepatitic C, cirrhosis, peripheral neuropathy secondary to alcohol dependence, hypertension, hyperlipidemia, gout, prior amputation secondary to osteomyelitis, and chronic bilateral foot ulcers who presents to the [facility] after recent left foot MRI revealed osteomyelitis of the left fourth metatarsal. History of Present Illness: Patient reports he left foot has been more sore over the past week. He has also noted erythema on the foot. It's primarily painful when he applies pressure to the area but not painful at rest. He has not had fevers, chills, nausea, vomiting, stool changes, urinary changes, syncope. He has chronic peripheral neuropathy and limited lower extremity sensation. He smokes 1ppd. He had 3 beers daily but hasnever had withdrawal symptoms or complicated withdrawal. He additionally notes right toe pain and thinks it is broken. No history of trauma to RLE or any injury. Patient has a history of osteomyelitis of foot in January 2019 of 1st digit of left toe. He was admitted to [facility] where he received IV antibiotics and had amputation done. Left foot MRI in 08/2019 showed a small area of altered bone marrow signal intensity within the fourth metatarsal andfourth proximal phalanx deep to the soft tissue which was consistent with osteomyelitis. He completed 42 days of Linezolid 600mg on 10/13/19 and had a 10 day course of cephalexin beginning of August 2019. He is followed closely by wound care and podiatry outpatient for chronic bilateral foot ulcers. Given worsening erythema of a left plantar ulcer, he was prescribed bactrim which the patient took for 48hours. Labs were done outpatient and revealed elevated inflammatory markers and leukocytosis. He wasinstructed to go to [facility]. In the ED he is afebrile and hemodynamically stable with SpO2 92% on room air. Wound aspirate from the left foot ulcer from 03/07, are growing moderate staph aureus, moderate beta hemolytic strep (not group A or B). DVT ultrasound of left lower extremity was negative. MRI of left foot showed osteomyelitis and septic arthritis with gas in the soft tissue. He was admitted to hospital medicine for management of osteomyelitis. Past Medical History: .. Patient Active Problem List Diagnosis Code ??? [...] fat layer exposed L97.512 ??? Osteomyelitis M86.9 Allergies: Allergies Allergen Reactions ??? Morphine Other (See Comments) STATES THAT IT DOES NOT TAKE HIS PAIN AWAY Current Medications: Current Facility-Administered Medications: ??? LORazepam (ATIVAN) injection 0.5 mg, 0.5 mg, Intravenous, Once, Harley Miguel PA ??? diazePAM (Valium) tablet 5 mg, 5 mg, Oral, Once, Harley Miguel PA ??? LORazepam (ATIVAN) 2 mg/mL injection, , , , ??? diazePAM (Valium) 5 mg tablet, , , , Current Outpatient Medications: ??? sulfamethoxazole-trimethoprim DS (Bactrim DS) 800-160 mg Tablet, Take 1 tablet by mouth 2 times daily for 10 days., Disp: 20 tablet, Rfl: 0 ??? QUEtiapine (SEROquel) 25 mg Tablet, take 1 tablet by mouth twice a day if needed, Disp: , Rfl: ??? acetaminophen (Tylenol) 325 mg Tablet, Take 650 mg every 4 hours by oral route as needed., Disp:, Rfl: ??? gabapentin (NEURONTIN) 600 mg Tablet, take 2 tablets by mouth three times a day, Disp: , Rfl: ??? pantoprazole EC (Protonix) 40 mg Tablet, Delayed Release (E.C.), Take 40 mg by mouth 2 times daily., Disp: , Rfl: ??? furosemide (Lasix) 80 mg Tablet, Take by mouth as needed., Disp: , Rfl: ??? buspirone HCl (BUSPIRONE ORAL), Take by mouth daily., Disp: , Rfl: ??? ondansetron ODT (Zofran-ODT) 4 mg Tablet, Rapid Dissolve, Take 1 tablet by mouth every 8 hours. (Patient not taking: Reported on 03/09/2020), Disp: 90 tablet, Rfl: 1 ??? citalopram (CELEXA) 20 mg Tablet, Take 20 mg by mouth Daily., Disp: , Rfl: ??? chlorthalidone (HYGROTEN) 25 mg Tablet, Take 25 mg by mouth daily., Disp: , Rfl: 0 ??? omeprazole (PRILOSEC) 40 mg Capsule, Delayed Release(E.C.), Take 40 mg by mouth daily., Disp: , Rfl: 1 ??? methadone HCl (METHADONE ORAL), Take 82 mg by mouth daily., Disp: , Rfl: ??? SPIRIVA RESPIMAT 2.5 mcg/actuation Mist, Take 1 puff by mouth as needed. , Disp: , Rfl: ??? ipratropium-albuterol (DUONEB) 0.5 mg-3 mg(2.5 mg base)/3 mL Solution for Nebulization, Take 3 mLs by nebulization every 6 hours as needed. , Disp: , Rfl: ??? PROAIR HFA 90 mcg/actuation HFA Aerosol Inhaler, Inhale 2 puffs into the lungs every 6 hours as needed. , Disp: , Rfl: ??? meTOPROLOL succinate (TOPROL-XL) 100 mg Tablet Sustained Release 24 hr, Take 1 tablet by mouth daily., Disp: , Rfl: 0 ??? DULERA 100-5 mcg/actuation HFA Aerosol Inhaler, inhale 2 puffs by mouth prn, Disp: , Rfl: 0 ??? multivitamin (THERAGRAN) tablet, Take 1 tablet by mouth daily., Disp: , Rfl: Family History: Family History Problem (# of Occurrences) Relation (Name,Age of Onset) Cancer (3) Father, Paternal Uncle, Paternal Grandmother Osteoarthritis (1) Mother Social History: Smoking: active 1ppd smoker EtOH: 3 beers daily Drug use: Marijuana Review of Systems: GENERAL HEENT CV PULM x All negative x All negative x All negative All negative Weight loss Headache Chest Pain x Non-productive cough chronic Weight gain Vision change Palpitations Productive cough Fevers Sinus congestion Orthopnea Wheezing Chills Hoarseness PND Hemoptysis Night sweats Epistaxis LE edema Pleuritic pain Fatigue Syncope SOB Claudication CUNHA MSK RENAL ENDO GI x All negative x All negative x All negative x All negative Arthralgias Frequency Heat intolerance Blood in stool Myalgias Urgency Cold intolerance Dysphagia Weakness Dysuria Polydipsia Odynophagia Stiffness Flank pain Polyphagia Abdominal discomfort Hematuria Constipation Foamy urine Diarrhea Discharge Nausea/Vomiting LYMPH SKIN NEURO PSYCH x All negative x All negative x All negative All negative Swollen nodes Rash Dizziness Depressed mood Tender nodes Ulcers Tremors Occupational stress Diffuse nodes Bruising Paresthesias Anxiety Local nodes Tanned skin Focal weakness Insomnia Night sweats Telangiectasias Diplopia Objective: Vital Signs: Last value Range last 24 hrs Temperature Temp: 36.8 ??C (98.3 ??F) Temp: [36.1 ??C (97 ??F)-36.8 ??C (98.3 ??F)] Heart Rate Heart Rate: [68] Blood Pressure BP: (!) 143/112 BP: (143-153)/(80-112) Respiratory Rate Resp: 20 Resp: [20] SpO2 SpO2: 92 % SpO2: [92 %-93 %] Physical Exam: General: pleasant male in no acute distress HEENT: NC / AT, PERRL, Moist oropharynx, no palatal erythema or exudate Heart: RR, S1 and S2 auscultated, systolic murmur best heard at apex Lungs: Clear to auscultation Abdomen: Active BS, Soft, NTTP Left lower extremity: circumferential erythema extending to the mid-sims with ring exudate and malodor from left plantar foot ulcer. Left dorsal foot with toe. Edema to mid-sims. DP/PT pulses palpated bilaterally. Right lower extremity: chronic wounds without any ulcers or pus Neuro: CN intact to observation, No dysphasia, focal weakness. Sensation deficit below bilateral mid-sims. Current Facility-Administered Medications: ??? LORazepam (ATIVAN) injection 0.5 mg, 0.5 mg, Intravenous, Once, Bagin, Tano, PA ??? diazePAM (Valium) tablet 5 mg, 5 mg, Oral, Once, Harley Miguel PA ??? LORazepam (ATIVAN) 2 mg/mL injection, , , , ??? diazePAM (Valium) 5 mg tablet, , , , Current Outpatient Medications: ??? sulfamethoxazole-trimethoprim DS (Bactrim DS) 800-160 mg Tablet, Take 1 tablet by mouth 2 times daily for 10 days., Disp: 20 tablet, Rfl: 0 ??? QUEtiapine (SEROquel) 25 mg Tablet, take 1 tablet by mouth twice a day if needed, Disp: , Rfl: ??? acetaminophen (Tylenol) 325 mg Tablet, Take 650 mg every 4 hours by oral route as needed., Disp:, Rfl: ??? gabapentin (NEURONTIN) 600 mg Tablet, take 2 tablets by mouth three times a day, Disp: , Rfl: ??? pantoprazole EC (Protonix) 40 mg Tablet, Delayed Release (E.C.), Take 40 mg by mouth 2 times daily., Disp: , Rfl: ??? furosemide (Lasix) 80 mg Tablet, Take by mouth as needed., Disp: , Rfl: ??? buspirone HCl (BUSPIRONE ORAL), Take by mouth daily., Disp: , Rfl: ??? ondansetron ODT (Zofran-ODT) 4 mg Tablet, Rapid Dissolve, Take 1 tablet by mouth every 8 hours. (Patient not taking: Reported on 03/09/2020), Disp: 90 tablet, Rfl: 1 ??? citalopram (CELEXA) 20 mg Tablet, Take 20 mg by mouth Daily., Disp: , Rfl: ??? chlorthalidone (HYGROTEN) 25 mg Tablet, Take 25 mg by mouth daily., Disp: , Rfl: 0 ??? omeprazole (PRILOSEC) 40 mg Capsule, Delayed Release(E.C.), Take 40 mg by mouth daily., Disp: , Rfl: 1 ??? methadone HCl (METHADONE ORAL), Take 82 mg by mouth daily., Disp: , Rfl: ??? SPIRIVA RESPIMAT 2.5 mcg/actuation Mist, Take 1 puff by mouth as needed. , Disp: , Rfl: ??? ipratropium-albuterol (DUONEB) 0.5 mg-3 mg(2.5 mg base)/3 mL Solution for Nebulization, Take 3 mLs by nebulization every 6 hours as needed. , Disp: , Rfl: ??? PROAIR HFA 90 mcg/actuation HFA Aerosol Inhaler, Inhale 2 puffs into the lungs every 6 hours as needed. , Disp: , Rfl: ??? meTOPROLOL succinate (TOPROL-XL) 100 mg Tablet Sustained Release 24 hr, Take 1 tablet by mouth daily., Disp: , Rfl: 0 ??? DULERA 100-5 mcg/actuation HFA Aerosol Inhaler, inhale 2 puffs by mouth prn, Disp: , Rfl: 0 ??? multivitamin (THERAGRAN) tablet, Take 1 tablet by mouth daily., Disp: , Rfl: Laboratory Studies: WBC 13.7, Hgb 13.3, Plt 364 Na 133, Cl 93, CO2 27, BUN 7, Cr 0.94, Ca 10 INR 1.1 CRP 12.6 Microbiology: COVID 19 Negative Wound cultures left foot ulcer 03/07: moderate staphylococcus aureus, moderate beta hemolytic streptococci, not group A or B Diagnostic Studies: MRI Left Foot wo Contrast IMPRESSION Severe motion artifact. ?? Plantar ulcer extending to the fourth metatarsal head with osteomyelitis of the fourth proximal phalanx and the fourth metatarsal extending to the proximal shaft and also septic arthritis of the fourth MTP joint that is contiguous with a gas containing fluid collection at its dorsal aspect. XR L Foot ?? Findings are concerning for osteomyelitis of the head of the fourth metatarsal. DVT LLE ?? LEFT: ??No evidence of lower extremity deep venous thrombosis. ?? 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 I discussed the case with orthopedics who will take patient to the OR tomorrow, likely. Given his clinical stability will hold all antibiotics for now. Given his history of alcohol use and opioid dependence on methadone I will monitor him on the ativan assessment scale. Plan: # Osteomyelitis of Left 4th Metatarsal # Septic Arthritis of 4th MTP Joint - hold antibiotics for now - orthopedics consulted - wound care consulted - follow-up blood cultures - physical therapy consulted # Severe Alcohol Use Disorder without Complication # Peripheral neuropathy 2/2 alcohol use # Opioid use disorder - gabapentin 1200mg bid - continue home methadone - CIWA ativan assessment scale - monitor for 48 hours - thiamine 100mg daily # Mild hyponatremia - LR @ 125 cc/hr for 12 hours - daily bmp # COPD, Gold 2 - duonebs prn # Substance use disorder - nicotine patch daily # HTN - continue chlorthalidone 25 daily - metoprolol tartrate 25 q6h (home succinate 100) # Diet: [facility]. NPO at midnight. # DVT Ppx: Hold # Decision maker: Self or # Code Status: Full Chioma Patterson MD Internal Medicine Pager # [phone] 03/09/20 Associated attestation - Robert Godwin MD - 03/11/2020 7:28 AM EDT Attending Attestation Please see Hossein's note for details of the patient history of presentation and data. I have discussed, reviewed and agree with the documented History, Physical findings, Assessment and Plan of care. I have examined the patient myself and personally reviewed all studies. In addition, I certify that I am a [facility] credentialed attending provider with admitting privileges and that the patient meets or has met medical necessity to require an inpatient IPI level of care meeting a minimum of two midnights or is on the [facility] inpatient only procedure list (status C) due to: osteomyelitis requiring surgical management We will follow up note and also culture results. As patient is stable, will not start antibiotics . documented in this encounter Procedure Notes Sharad Mathis RN - 03/14/2020 2:07 PM ESTAssociated Order(s): PLACE PICC LINE: CONTACT VASCULAR ACCESS [...] to the planned procedure. Hand Hygiene: The carpenter railcar did perform hand hygiene prior to line insertion. Catheter type: PICC Lot number: [id number] Procedure Technique: Skin was prepped with chlorhexidine. [...] seldinger technique and fluoroscopy. Arm circumference was 30 cm at 2 cm above the insertion site. Final catheter length (with trimming): 44 cm Internal: 44 cm External: 0 cm Tip in SVC per Dr. Davies. The line was not placed over a guidewire. Post Procedure: Diagnosis: Osteomyelitis Blood return noted on aspiration of line after placement confirmed. 2 mls of normal saline infused free flowing to gravity via PICC after insertion. Sterile dressing applied: CHG Impregnated Tegaderm. Findings: The patient did tolerate the procedure well. No Complications. Procedure Comments: Placed by Thee Ortega M.D. PGY-5 Sharad Mathis RN 03/14/2020 documented in this encounter ED Notes Sylvia Ziegler RN - 03/09/2020 8:00 PM EDT Pt is in his bed, AOx4, breathing equal and unlabored, skin PWD. Pt does have redness in his left foot. There is a hole in the bottom of his foot that is leaking. Pt given venkat yaneli per request. No further needs. Awaiting transpo Leda Brown RN - 03/09/2020 9:27 AM EDT 0920: Pt brought and arrived to vascular services. Resting comfortably and has no request. 1228: Pt is resting comfortably, drink of water is given. He has no complaints, told of no eta for MRI, pt understands. 1340: Pt taken to MRI. Harley Miguel PA - 03/09/2020 9:01 AM EDT Name: Soledad Ramos : 1955 Date of Service: 03/09/2020 Chief Complaint: No chief complaint on file. History of Present Illness: 64 y.o. y/o male with a history of neuropathy with bilateral foot wounds, Cirrhosis, Hep C, HTN, Depression, COPD presents to the emergency department with concern for increasing erythema, warmth, and pain of his left foot in the setting of elevated inflammatory markers and white blood cell count found at wound clinic 2 days ago. Patient was sent here for evaluation of osteomyelitis. He has had osteomyelitis in the past. No history of vascular issues. Patient denies fever, chills, abdominal pain, nausea, vomiting, or right foot pain/redness. ROS 10 point review of systems reviewed and negative unless otherwise stated in HPI Past Medical History: Diagnosis Date ??? Cirrhosis Chronic HCV and history of alcohol use ??? COPD (chronic obstructive pulmonary disease) ??? Depression ??? GERD (gastroesophageal reflux disease) ??? Hepatitis C ??? HTN (hypertension) Past Surgical History: Procedure Laterality Date ??? PRO TOTAL KNEE ARTHROPLASTY Left 12/13/2015 @TOTAL KNEE ARTHROPLASTY performed by Davide Mallory MD at [facility] MA[facility] OR ??? PRO UPPER GI ENDOSCOPY, DIAGNOSTIC Bilateral 08/17/2015 EGD, UPPER GI ENDOSCOPY performed by Trev Hong MD at [facility] ENDOSCOPY ??? REVISION TOTAL HIP ARTHROPLASTY bilateral [...] 21 Standard drinks or equivalent per week ??? Drug use: Yes Types: Marijuana Current Facility-Administered Medications: ??? LORazepam (ATIVAN) injection 0.5 mg, 0.5 mg, Intravenous, Once, Harley Miguel PA ??? LORazepam (ATIVAN) 2 mg/mL injection, , , , Current Outpatient Medications: ??? sulfamethoxazole-trimethoprim DS (Bactrim DS) 800-160 mg Tablet, Take 1 tablet by mouth 2 times daily for 10 days., Disp: 20 tablet, Rfl: 0 ??? QUEtiapine (SEROquel) 25 mg Tablet, take 1 tablet by mouth twice a day if needed, Disp: , Rfl: ??? acetaminophen (Tylenol) 325 mg Tablet, Take 650 mg every 4 hours by oral route as needed., Disp:, Rfl: ??? gabapentin (NEURONTIN) 600 mg Tablet, take 2 tablets by mouth three times a day, Disp: , Rfl: ??? pantoprazole EC (Protonix) 40 mg Tablet, Delayed Release (E.C.), Take 40 mg by mouth 2 times daily., Disp: , Rfl: ??? furosemide (Lasix) 80 mg Tablet, Take by mouth as needed., Disp: , Rfl: ??? buspirone HCl (BUSPIRONE ORAL), Take by mouth daily., Disp: , Rfl: ??? ondansetron ODT (Zofran-ODT) 4 mg Tablet, Rapid Dissolve, Take 1 tablet by mouth every 8 hours. (Patient not taking: Reported on 03/09/2020), Disp: 90 tablet, Rfl: 1 ??? citalopram (CELEXA) 20 mg Tablet, Take 20 mg by mouth Daily., Disp: , Rfl: ??? chlorthalidone (HYGROTEN) 25 mg Tablet, Take 25 mg by mouth daily., Disp: , Rfl: 0 ??? omeprazole (PRILOSEC) 40 mg Capsule, Delayed Release(E.C.), Take 40 mg by mouth daily., Disp: , Rfl: 1 ??? methadone HCl (METHADONE ORAL), Take 82 mg by mouth daily., Disp: , Rfl: ??? SPIRIVA RESPIMAT 2.5 mcg/actuation Mist, Take 1 puff by mouth as needed. , Disp: , Rfl: ??? ipratropium-albuterol (DUONEB) 0.5 mg-3 mg(2.5 mg base)/3 mL Solution for Nebulization, Take 3 mLs by nebulization every 6 hours as needed. , Disp: , Rfl: ??? PROAIR HFA 90 mcg/actuation HFA Aerosol Inhaler, Inhale 2 puffs into the lungs every 6 hours as needed. , Disp: , Rfl: ??? meTOPROLOL succinate (TOPROL-XL) 100 mg Tablet Sustained Release 24 hr, Take 1 tablet by mouth daily., Disp: , Rfl: 0 ??? DULERA 100-5 mcg/actuation HFA Aerosol Inhaler, inhale 2 puffs by mouth prn, Disp: , Rfl: 0 ??? multivitamin (THERAGRAN) tablet, Take 1 tablet by mouth daily., Disp: , Rfl: Allergies Allergen Reactions ??? Morphine Other (See Comments) STATES THAT IT DOES NOT TAKE HIS PAIN AWAY Physical Exam: Vitals: BP 148/77 Pulse 63 Temp 36.8 ??C (98.3 ??F) Resp 20 Ht 175.3 cm (5' 9) Wt 90.7 kg(200 lb) SpO2 90% BMI 29.53 kg/m?? Physical Exam Vitals signs and nursing note reviewed. Constitutional: General: He is not in acute distress. Appearance: He is well-developed. He is not diaphoretic. HENT: Head: Normocephalic and atraumatic. Nose: Nose normal. Mouth/Throat: Mouth: Mucous membranes are moist. Pharynx: Oropharynx is clear. No oropharyngeal exudate. Eyes: General: Right eye: No discharge. Left eye: No discharge. Extraocular Movements: Extraocular movements intact. Conjunctiva/sclera: Conjunctivae normal. Pupils: Pupils are equal, round, and reactive to light. Cardiovascular: Rate and Rhythm: Normal rate and regular rhythm. Heart sounds: Normal heart sounds. No murmur. Comments: 2+ DP and post tib pulses bilat. Pulmonary: Effort: Pulmonary effort is normal. No respiratory distress. Breath sounds: Normal breath sounds. No wheezing or rales. Abdominal: General: Abdomen is flat. There is no distension. Palpations: Abdomen is soft. Tenderness: There is no abdominal tenderness. Musculoskeletal: Right lower leg: No edema. Left lower leg: Edema present. Comments: 2+ pitting edema to the L lower leg. L foot ulcer probes to bone Skin: General: Skin is warm and dry. Findings: Erythema present. No rash. Comments: Erythema and warmth to the L foot and lower leg Neurological: Mental Status: He is alert and oriented to person, place, and time. Sensory: No sensory deficit. Results: Recent Results (from the past 24 hour(s)) Basic Metabolic Panel (non-fasting) Result Value Ref Range Glucose Lvl Not Perf 65 - 199 BUN 7 (L) 10 - 20 mg/dL Creatinine 0.94 0.80 - 1.50 mg/dL Sodium 133 (L) 135 - 145 mmol/L Potassium Not Perf 3.5 - 5.0 Chloride 93 (L) 98 - 107 mmol/L CO2 27 22 - 31 mmol/L Anion Gap 13 5 - 15 mmol/L Calcium 10.0 8.5 - 10.5 mg/dL eGFR 84 >=60 mL/min/1.73 m?? eGFR 98 >=60 mL/min/1.73 m?? Sedimentation rate Result Value Ref Range Sed Rate 106 (H) 2 - 37 mm/hr CRP, acute inflammation Result Value Ref Range CRP 102.6 (H) <=4.9 mg/L Hemoglobin A1c Result Value Ref Range Hemoglobin A1C 5.6 4.3 - 5.6 % Est Avg Gluc 113 mg/dL Prothrombin Time Result Value Ref Range PT 12.9 (H) 9.4 - 12.5 sec INR 1.1 Hemogram Result Value Ref Range WBC 13.7 (H) 4.0 - 9.5 x10(3)/mcL RBC 4.31 (L) 4.58 - 5.54 x10(6)/mcL Hemoglobin 13.3 (L) 13.7 - 16.5 gm/dL Hematocrit 41.3 40.5 - 48.5 % MCV 95.8 (H) 82.9 - 93.1 fL MCH 30.9 27.5 - 32.1 pg MCHC 32.2 32.0 - 35.7 gm/dL Platelets 364 (H) 145 - 357 x10(3)/mcL RDWSD 48.2 (H) 36.0 - 45.0 fL RDWCV 13.5 11.4 - 13.8 % MPV 10.1 7.6 - 12.9 fL nRBC % Auto 0.0 % nRBC Abs Auto 0.000 0.000 - 0.000 x10(3)/mcL Differential, Automated Result Value Ref Range Neutrophils % 71.5 % Neutr Abs (ANC) 9.83 (H) 1.70 - 6.10 x10(3)/mcL Lymphocytes % 12.7 % Lymphocytes Abs 1.7 0.9 - 3.2 x10(3)/mcL Monocytes % 11.0 % Monocyte Abs 1.5 (H) 0.3 - 0.9 x10(3)/mcL Eosinophils % 3.7 % Eosinophils Abs 0.5 (H) 0.0 - 0.4 x10(3)/mcL Basophils % 0.5 % Basophils Abs 0.1 0.0 - 0.1 x10(3)/mcL Immature Gran % 0.60 % Shannan Gran Abs 0.08 (H) 0.00 - 0.04 x10(3)/mcL Gold Tube HOLD Result Value Ref Range Gold Hold Sample in lab. APTT Result Value Ref Range PTT 31 25 - 37 sec ABO/Rh Typing Result Value Ref Range ABORh Type A Pos Antibody screen Result Value Ref Range Ab Screen Interp Negative Expires at 2359 on: 03/12/2020 ABORH Recheck Status Result Value Ref Range ABORH Type Recheck Completed XR Foot Min 3 views Left (Generic) Final Result Findings are concerning for osteomyelitis of the head of the fourth metatarsal. Thank you for letting us participate in the care of this patient. For questions regarding this report, please contact the number below. Foot wo Contrast Left Final Result Severe motion artifact. Plantar ulcer extending to the fourth metatarsal head with osteomyelitis of the fourth proximal phalanx and the fourth metatarsal extending to the proximal shaft and also septic arthritis of the fourth MTP joint that is contiguous with a gas containing fluid collection at its dorsal aspect. Thank you for letting us participate in the care of this patient. For questions regarding this report, please contact the number below. Procedures: Medical Decision Makin y.o. male with history of neuropathy and bilateral foot wounds, cirrhosis, hep C, hypertension, depression, and COPD presenting with osteomyelitis of the left foot. Patient is overall well-appearing. Vital signs normal. He has a wound that probes to bone of the left foot with surrounding erythema, warmth, and swelling. DVT ultrasound was obtained to evaluate for possible DVT given the extent of swelling of his left lower leg. This was negative for DVT. He has good pulses. Less likely arterial thrombosis. MRI of the left foot was obtained given his wound and elevated inflammatory markers. This showed osteomyelitis and septic arthritis with gas in the soft tissue. Orthopedics evaluated patient and recommends admission for surgery. Hospital Medicine agreed to admit patient to the hospital. Patient is Admitted in stable condition. Antibiotics deferred to Ortho. ED Course: ED Course as of Mar 09 1802 Christina Mar 09, 2020 1551 With Ortho who recommends admission to the hospital. Spoke with hospital medicine who will decide appropriate service for patient in conjunction with Ortho. Medications LORazepam (ATIVAN) injection 0.5 mg (has no administration in time range) LORazepam (ATIVAN) 2 mg/mL injection (has no administration in time range) diazePAM (Valium) tablet 5 mg (5 mg Oral Given 03/09/20 1437) Assessment: 1. Osteomyelitis 2. Leg swelling Disposition: Admit to medicine Harley Miguel PA 03/09/201803 Ryan Landrum MD - 03/09/2020 7:51 AM EDT Coming from wound clinic for presumed Foot Osteo with elevated markers, no imaging yet. Worsening picture despite bactrim 48hrs. Ryan Landrum MD 03/09/20 0752 documented in this encounter Miscellaneous Notes Plan of Care - Sharad Mathis RN - 03/14/2020 2:10 PM EST Problem: Health Knowledge, Opportunity to Enhance (Adult,NICU,[place],Obstetrics,Pediatric) Goal: Knowledgeable about Health Subject/Topic Patient will demonstrate the desired outcomes by discharge/transition of care. Outcome: Outcome (s) achieved Date Met: 03/14/20 Peripherally Inserted Central Catheter (PICC) Teaching Sheet Peripherally inserted central catheters ([id number]) (PICC) are used when you need IV [...] midline catheter? PICC lines are used for exterminator helper treatments. PICC lines may be used for up to a year. They are often put in to give you IV medicines at home. You may need a PICC catheter because caregivers cannotuse smaller veins in your body. Smaller veins may be damaged, or they may have poor blood flow. ??? Catheters are also used in case of emergency when you would need medicines or fluids very quickly. ??? The following are medicines and treatments you may get when you have a PICC line. ? Antibiotics. These are medicines to prevent infection. ? Frequent blood sample collection. ? IV medicines that would make your smaller veins sore or damaged. ? Receiving IV fluids for a long period of time. ? Pain medicine. ? Total Parenteral Nutrition: This is also called TPN. TPN is a special liquid food that goes directly into your veins. ? Blood ? Chemotherapy (Medicine for cancer) What are the benefits of having a PICC line put in? Having a PICC line may keep your arm from being stuck many times with a needle to draw blood or start an IV (intravenous catheter) . ??? Through a PICC catheter, you may have blood taken for tests. You may also get IV fluids and medicines quickly and easily. ??? Small veins can be damaged or irritated by certain drugs or nutritional solutions. A PICC line helps to decrease vein irritation from antibiotics, IV pain drugs, or IV cancer drugs. ??? A PICC line can be left in place when you go home. If you go home with a PICC line in place, home care can be set up via the nurse Fisher Spear to help you. What are possible complications of having a PICC line put in? Some possible complications are: ??? bruising, swelling, or infection in the arm with the PICC line ??? mal-positioned catheter (catheter tip in wrong place) ??? occlusion (blocked catheter) ??? mechanical phlebitis (vein irritation) and thrombosis (clot) [...] provider should be notified if these occur: ??? Redness ??? Swelling ??? Pus ??? Pain at the site Other reasons to notify your healthcare provider are: ??? Catheter becomes partially or totally removed ??? Unable to infuse medication/fluid ??? Unable to draw back blood from the catheter. This may be an early sign that a clot is forming onthe end of the catheter. If this occurs, [...] and Administration of [employer], [employer] 2005 [facility] Plan of Care - Anusha Matias RN - 03/14/2020 5:53 AM EST Problem: Patient Care Overview Goal: Plan of Care Review Outcome: Ongoing (Interventions Implemented as Appropriate) 03/14/20 0545 Coping/Psychosocial Plan Of Care Reviewed With patient Plan of Care Review Progress progress toward functional goals as expected OUTCOME EVALUATION NOTE: OUTCOME SUMMARY: Pt admitted 03/09/20 with L foot osteomyelitis. S/P 4th toe amp during this hospital stay, currently on po and IV abx. Plan for PICC placement later today and home with OPAT. L foot with JUDE and splint intact. Needs constant reminding to be NWB on L foot when OOB with FWW. R foot withoffloading shoe in place also. Pt requested tylenol at HS for discomfort in L foot, which was given with good effect. BP remains elevated but slightly improved from previous days. Pt asymptomatic. Willcontinue to monitor and will inform MD of any changes. PLAN MOVING FORWARD: Closely monitor VS, labs, assessments. Plan for PICC later today and potential d/c after. Will inform MD of any changes. INDIVIDUALIZED FALL PREVENTION INTERVENTIONS: Patient-specific fall risk factors per assessment: [current deficits]: Weakness, L foot wound, NWB status Assistance [level of assistance required for transfers and ambulation]: 1 stand by assist OOB with FWW, constant reminders to be NWB Supervision [direct monitoring required during toileting and ADLs]: Indpeendent with toileting, 1 minimal assist for ADLs Surveillance [continuous indirect monitoring]: Hourly rounding, bed alarm Patient-specific fall prevention interventions for sensory deficits provided, if applicable: [X] Yes, call miller within easy reach, side rails up x 2-3, nonslip socks or off loading shoe if OOB, PT consult CPG GOAL OUTCOME EVALUATION: Plan of Care - Meli Armstrong RN - 03/13/2020 5:20 PM EST Problem: Patient Care Overview Goal: Plan of Care Review Outcome: Ongoing (Interventions Implemented as Appropriate) 03/13/20 0617 03/13/20 0819 Coping/Psychosocial Plan Of Care Reviewed With -- patient Plan of Care Review Progress progress toward functional goals as expected -- OUTCOME EVALUATION NOTE: OUTCOME SUMMARY: Pt A&Ox4, c/o pain in left foot, tylenol x 1. VSS on RA, BP in 160's lisinopril given scheduled and an extra dose of 20 mg, increased to 40 mg a day. Pt up to the bathroom to void, BM and urinating. Foot cultures came back positive with specific growth, PO antibiotics given, needs PICC line, and VNA. Started on Rocephin q 24, d/c off ancef. Pt remains free from falls. PT saw him today, home with services. Will continue to monitor and update with details. PLAN MOVING FORWARD: PICC placement IV abx- VNA Wound care INDIVIDUALIZED FALL PREVENTION INTERVENTIONS: Patient-specific fall risk factors per assessment: [current deficits]: IV pain, Left non-bearing Assistance [level of assistance required for transfers and ambulation]: 1A w/ FWW Supervision [direct monitoring required during toileting and ADLs]: Arms reach Surveillance [continuous indirect monitoring]: Call miller in reach, safety rounding, bed alarm on Patient-specific fall prevention interventions for sensory deficits provided, if applicable: N/A Goal: Individualization & Mutuality Outcome: Ongoing (Interventions Implemented as Appropriate) 03/10/20 0053 Mutuality/Individual Preferences What Anxieties, Fears or Concerns Do You Have About Your Health or Care? none What Questions Do You Have About Your Health or Care? none What Information Would Help Us Give You More Personalized Care? none Goal: Fall Prevention-Safe Patient Handling Outcome: Ongoing (Interventions Implemented as Appropriate) 03/13/20 1100 03/13/20 1530 [place] Fall Risk History of Falling 0 -- Secondary Diagnosis 15 -- Ambulatory Aids 15 -- Intravenous Therapy/Heparin/Saline Lock 20 -- Gait/Transferring 10 -- Mental Status 0 -- Score 60 -- OTHER [place] Fall Risk High -- Restraint Interventions Safety Promotion/Fall Prevention -- fall prevention program maintained;muscle strengthening facilitated;nonskid shoes/slippers when out of bed;safety round/check completed Positioning Body Position -- independent Activity Activity Type -- activity adjusted per tolerance;ROM, active encouraged;up in chair Activity Assistance Provided -- assistance, stand-by Assistive Device Utilized -- front-wheel walker Goal: Infection Control Outcome: Ongoing (Interventions Implemented as Appropriate) 03/13/20 0819 03/13/20 1530 Safety Interventions Isolation Precautions -- standard precautions maintained Infection Prevention -- environmental surveillance performed;personal protective equipment utilized;rest/sleep promoted Coping Strategies Supportive Measures active listening utilized -- Goal: Discharge Needs Assessment Outcome: Ongoing (Interventions Implemented as Appropriate) 03/10/20 0037 Living Environment Transportation Available family or friend will provide Consult Note - Chio Turner RN - 03/13/2020 2:23 PM EST Images from the original note were not included. Certified Wound Care Nurse Note Situation: Asked to see Soledad Ramos by Anusha Matias RN for R sole of foot has dry calloused area, pt states that's how L foot wound started. ??Pt supposed to be d/cd 03/13. Background: eD-H notes reviewed for history, admitting diagnosis and active problem list. Patient is s/p Left 4th metatarsal ray resection for osteomyelitis on 03/10/2020. He is followed in the wound clinic and sees film processor. Wound Assessment and Care Provided: Patient seen this afternoon in room 159-A in bed, visitor at bedside. Reason for visit explained to patient. Patient with jude bandage on the left foot, post op shoe on right. States he goes to the wound clinic weekly and the right foot callus is pared. Right foot plantar surface with callus with dark area underneath. Patient reports not much feeling in his feet. Callus pared using a #15 blade scalpel, no bleeding noted, no open area. Pared down to softer tissue and patient will follow up with podiatry. Cleansed and Mepilex Border applied. The following picture was taken before paring. Geovanny Score: 18 Last Pressure Ulcer Prevention assessment: Shift Pressure Injury Prevention Occiput: No Injury Thoracic Spine: No Injury Sacral: No Injury Ischial - left: No Injury Ischial - right: Redness, Blanchable Heel - left: No Injury Heel - right: No Injury Elbow - left: No Injury Elbow - right: No Injury Device Sites: O2 sat monitor, IV sites Other Sites: Id band Nutritional Status Wt Readings from Last 1 Encounters: 03/09/20 90.7 kg (200 lb) Body mass index is 29.53 kg/m??. Labs Lab Results Component Value Date ALBUMIN 4.7 10/25/2019 ALBUMIN 4.5 10/25/2019 ALBUMIN 3.3 12/28/2018 HA1C 5.6 03/09/2020 WBC 10.4 (H) 03/13/2020 WBC 10.3 (H) 03/12/2020 WBC 11.0 (H) 03/11/2020 HGB 12.7 (L) 03/13/2020 HGB 12.2 (L) 03/12/2020 HGB 12.3 (L) 03/11/2020 HCT 38.6 (L) 03/13/2020 HCT 36.4 (L) 03/12/2020 HCT 37.1 (L) 03/11/2020 Nutritional Intake Nutrition Assessments Diet/Feeding Assistance: none Intake (%): 100% Oral Carbohydrates (gms) estimated: 34 Current bed: [facility] Assessment: Patient with neuropathy and callus on the right plantar foot. He does have specialized shoes and is followed by podiatry. Wound Care Recommendations: Left foot per orthopaedics. Mepilex Border dressing to right plantar foot while inpatient-nursing to change every 3 days and as needed for dressing with 50% or greater strike though drainage. 1. Cleanse wound with dermal wound cleanser and gauze. 2. Apply Mepilex Border dressing After discharge, follow up with: podiatry.. Wound care services will complete the consult at this time. Please re-consult via e-DH if concerns arise. Discussed plan with: RNVidal Garrison Please contact CHIO TURNER RN on pager [phone] or the wound care team at [phone] or pager [phone] skin and wound care concerns or questions. Plan of Care - Pasquale Barry, PT - 03/13/2020 11:15 AM EST Physical Therapy Evaluation Patient profile: Soledad Ramos was admitted on 03/09/[address] Leonela Sandhu MD from ED where he was referred from wound clinic, L plantar wound worse despite bactrim. He's had plantar surfacewound about 1 year. He also has h/o osteomyelitis Jan 2019 and had 5th toe amputation August 2019. Followed by wound care weekly. Admitted with ESR and WBC increased. Wound aspirate 03/07 with mod staph aureus, DVT U/S negative L LE, MRI of L foot showed osteomyelitis and septic arthritis with gas in soft tissue. Ortho service consulted and taken to surgery 03/10 for 4th MTP joint purulence and bony erosion, amputation of 4th ray ,I&D, and cultures sent. Continues on cefazolin and flagyl antibiotics until cultures clarify best treatment regimen. Patient with the following active problems: Past Medical History: Diagnosis Date ??? Cirrhosis Chronic HCV and history of alcohol use ??? COPD (chronic obstructive pulmonary disease) ??? Depression ??? GERD (gastroesophageal reflux disease) ??? Hepatitis C ??? HTN (hypertension) Past Surgical History: Procedure Laterality Date ??? PRO AMPUTATION FOOT, TRANSMETATARSAL Left 03/10/2020 AMPUTATION, TRANSMETATARSAL (WRVU 12.71) performed by Geovanna Lewis MD at [facility] MAIN OR ??? PRO TOTAL KNEE ARTHROPLASTY Left 12/13/2015 @TOTAL KNEE ARTHROPLASTY performed by Davide Mallory MD at [facility] MAIN OR ??? PRO UPPER GI ENDOSCOPY, DIAGNOSTIC Bilateral 08/17/2015 EGD, UPPER GI ENDOSCOPY performed by Trev Hong MD at [facility] ENDOSCOPY ??? REVISION TOTAL HIP ARTHROPLASTY bilateral for hip AVN ??? SPINE SURGERY Active Non-Hospital Problems Diagnosis ??? Neuropathic ulcer of toe of right foot with fat layer exposed ??? Cellulitis of leg, right ??? Neuropathic ulcer of foot, left, with fat layer exposed ??? Neuropathic ulcer of foot, right, with fat layer exposed ??? SDH (subdural hematoma) ??? Avascular necrosis of humeral head ??? Pain in left shoulder ??? S/P L TKA 12/13/15 Dr. Mallory ??? Cirrhosis ??? Ankle fracture, left ??? Polysubstance abuse ??? Avascular necrosis bilateral knees ??? Confusion ??? Community acquired pneumonia ??? Imbalance ??? Hepatitis C ??? Alcohol dependence ??? Anixety D/O NOS ??? ADHD NOS ??? Chronic back pain ??? Major depressive disorder, single episode, unspecified Social History: Lives with spouse in [place], [place] in a split level home. does work so there are hours he's alone. Stairs: He goes up 6 or 7 steps and stays on top level of home. Baseline Mobility: ambulatory with custom shoes from [employer] since September 2019. Equipment at home: has a walker, crutches, and states they can get bench to sit on in tube shower. Precautions/Special Considerations: NWB L LE Mobility and Positioning Recommendations: ?? Pt. should utilize walker NWB L LE for ambulation and transfers with nursing. ?? Please encourage up to chair for meal times as able. ?? Pt encouraged to ambulate frequently with staff, getting into the bathroom for toileting and walking short distances Subjective: ???I've always gone up/down stairs on my buttocks, it's safer for me. I've given up drinking, smoking is a hard habit to quit. Objective: Pt seen for evaluation today. present and both agree, no concerns about d/c home. Pain: no c/o's Cardiopulmonary: Continues to smoke HR: 65 bpm SpO2: 92 % RA Mental Status: alert, oriented to person, place, and time Skin: L foot bandaged & in splinting material/immobilized. I didn't assess R foot but he's followed in wound care clinic for ulcers/wounds (B) feet. Musculoskeletal: ROM: WFL, able to DF/PF R foot, L immobilized in splint/posterior L shape cast. Strength: WFL Sensation: neuropathy Bed Mobility: Supine >< Sit: independent Transfers: Sit >< Stand: independent from EOB, w/c, toilet: using UE's to assist: cues to remind him no wt on L LE (he tends to leave heel of L foot down during sit >< stand & states he's keeping wt off it). Gait: Distance: Amb w/ walker into hallway ~20' then back 20' demonstrating ability to perform NWB L LE with LE out in front holding off floor and WB on arms, cues to stay in close to walker. Stairs: lowered to 3rd step and demonstrated independence going up on buttocks using arms and R footwithout wt on L LE/foot. Stood up and lowered down to step with gait belt assist: belt sent home forspouse or son to assist him. Also demonstrated going up from floor > to step stool > to chair: then stand from chair heightto walker. Balance: Sitting Static: normal: EOB (I) Sitting Dynamic: normal: EOB able to don R footwear, (I) on toilet Standing Static: good:with walker Standing Dynamic / Gait: Good: walker and NWB L LE Education/Exercise: patient and has been educated on gait belt and floor transfer after going up stairs on buttocks. Pt was left in bed with call miller within reach. Assessment: Pt was seen today for physical therapy evaluation. Patient demonstrating ability to perform NWB L LE for gait using walker and climb up/down steps on buttocks and stand pulling on railing or assist w/ gait belt from floor as well as educated on floor transfer using step stool to chair and s tanding from chair to walker. He has a walker @ home, lives in a raised ranch style home and stays on top level of home, only has 6-7 steps to go up from front door. does work so he's alone some hours but didn't feel home services needed unless cultures return and he'd go home on IV antibiotics then states maybe VNA. Plan: Therapy Frequency: evaluation only. Goals met, cleared for home once medically ready. Patient & understand and agree with plan. Discharge Recommendations: Anticipated Discharge Disposition: home with assist( assist) Consult Recommendations: No other consults recommended at this time. Equipment needs: Patient has all necessary equipment Goals achieved today: 1. Pt. to perform bed mobility independently. 2. Pt. to perform transfers independently using a front wheeled walker. 3. Pt. to ambulate household distances independently using a a front wheeled walker keeping wt off LLE/foot. 4. Pt able to move up/down 6-7 steps on his buttocks using UE's and R LE independently. 5. Pt & comfortable to use gait belt @ home as needed if he needs help up/down to stairs oroff floor. 6. Pt will tolerate progression towards upright with stable vital signs. Thank you for this consult. PASQUALE BARRY, PT Pager: [phone] Physical Therapy Inpatient Rehabilitation Department Time IN / OUT: 10:10-11:15 Total Evaluation Minutes, Physical Therapy: 55(EV) 2017 PT Evaluation Code Rationale: ?? Diagnosis & [...] functional performance as outlined in this evaluation. Plan of Care - Anusha Matias RN - 03/13/2020 6:35 AM EST Problem: Patient Care Overview Goal: Plan of Care Review Outcome: Ongoing (Interventions Implemented as Appropriate) 03/13/20 0617 Coping/Psychosocial Plan Of Care Reviewed With patient Plan of Care Review Progress progress toward functional goals as expected OUTCOME EVALUATION NOTE: OUTCOME SUMMARY: Pt admitted 03/09/20 with L foot wound and osteomyelitis. Pt stable overnight, BP elevated - see doc flowsheets. Pt reported pain in L foot overnight, medicated with IV dilaudid and later po tylenol with fair reported effect. Pt needs constant reminders and enforcement to NWB on L foot. Up to BR frequently with FWW. Dressing (jude and splint to L foot), C/DI. BRIAN drain removed by MD this AM ~ 6am. Will continue to monitor and will inform MD of any changes. PLAN MOVING FORWARD: Closely monitor VS, labs, assessments. Medicate as needed and as ordered. Inform MD of any changes. Possible discharge home later today. INDIVIDUALIZED FALL PREVENTION INTERVENTIONS: Patient-specific fall risk factors per assessment: [current deficits]: Weakness, pain, deconditioning Assistance [level of assistance required for transfers and ambulation]: 1 assist for transfers and FWW for any distance Supervision [direct monitoring required during toileting and ADLs]: independent with toileting, minimal assist for ADLs Surveillance [continuous indirect monitoring]: Hourly rounding, bed alarm Patient-specific fall prevention interventions for sensory deficits provided, if applicable: [X] Yes, call miller within easy reach, side rails up x 2-3, nonslip socks on if OOB, enforce NWB to LLE, PT consult CPG GOAL OUTCOME EVALUATION: Plan of Care - Krystyna Alan RN - 03/12/2020 3:31 PM EST Problem: Patient Care Overview Goal: Plan of Care Review Outcome: Ongoing (Interventions Implemented as Appropriate) 03/12/20 0603/12/20 08 Coping/Psychosocial Plan Of Care Reviewed With -- patient Plan of Care Review Progress progress toward functional goals as expected -- OUTCOME EVALUATION NOTE: OUTCOME SUMMARY: Alert and oriented x4, VSS on RA, assessment as documented. Meds given per JUL. NWB to LLE maintained. Ambulated to bathroom w 1A and FWW in to visit No acute events, will continue to monitor and page MD with updates. PLAN MOVING FORWARD: Remove BRIAN drain, d/c planning INDIVIDUALIZED FALL PREVENTION INTERVENTIONS: Patient-specific fall risk factors per assessment: [current deficits]: IV access, hosp environment, NWB to LLE, gen weakness Assistance [level of assistance required for transfers and ambulation]: SBA FWW Supervision [direct monitoring required during toileting and ADLs]: IND Surveillance [continuous indirect monitoring]: Call miller within reach, bed alarm on, room near nurses station, masimo on, hourly rounding utilized. Patient-specific fall prevention interventions for sensory deficits provided, if applicable: [X] No CPG GOAL OUTCOME EVALUATION: Goal: Individualization & Mutuality Outcome: Ongoing (Interventions Implemented as Appropriate) 03/10/20 0053 Mutuality/Individual Preferences What Anxieties, Fears or Concerns Do You Have About Your Health or Care? none What Questions Do You Have About Your Health or Care? none What Information Would Help Us Give You More Personalized Care? none Goal: Fall Prevention-Safe Patient Handling Outcome: Ongoing (Interventions Implemented as Appropriate) 03/12/20 0803/12/20 1410 [place] Fall Risk History of Falling 0 -- Secondary Diagnosis 15 -- Ambulatory Aids 15 -- Intravenous Therapy/Heparin/Saline Lock 20 -- Gait/Transferring 10 -- Mental Status 0 -- Score 60 -- OTHER [place] Fall Risk High -- Restraint Interventions Safety Promotion/Fall Prevention -- fall prevention program maintained;muscle strengthening facilitated;nonskid shoes/slippers when out of bed;safety round/check completed Positioning Body Position -- independent Activity Activity Type -- activity adjusted per tolerance;activity encouraged;ambulated in room;ambulated to bathroom;ROM, active encouraged Activity Assistance Provided -- assistance, stand-by Assistive Device Utilized -- front-wheel walker Goal: Infection Control Outcome: Ongoing (Interventions Implemented as Appropriate) 03/12/20 0820 03/12/20 1410 Safety Interventions Isolation Precautions standard precautions maintained -- Infection Prevention -- environmental surveillance performed;personal protective equipment utilized;rest/sleep promoted;single patient room provided Coping Strategies Supportive Measures active listening utilized -- Plan of Care - Hodan Felix RN - 03/12/2020 6:18 AM EST Problem: Patient Care Overview Goal: Plan of Care Review Outcome: Ongoing (Interventions Implemented as Appropriate) 03/12/20 0605 Coping/Psychosocial Plan Of Care Reviewed With patient Plan of Care Review Progress progress toward functional goals as expected OUTCOME EVALUATION NOTE: OUTCOME SUMMARY: Pt A/o x4 VSS except DBP elevated overnight. 123/100 and then 167/123. MD made aware and no interventions done. Scheduled medications given. Pt c/o slight discomfort in LLE. PRN tylenol given per pt request. Pt denied SOB, CP or nausea. CUNHA noted with desaturation when ambulating. BRIAN drain draining adequate output. Pt was increasingly confused around MN. Disoriented to place and situation. MD made aware. No interventions done. Up to the BR intermittently. Voiding adequately. Resting in bed comfortably. Will continue to monitor PLAN MOVING FORWARD: Encourage mobility, continue NWB to LLE, IV abx, remove drain, prepare for d/c when appropriate INDIVIDUALIZED FALL PREVENTION INTERVENTIONS: Patient-specific fall risk factors per assessment: [current deficits]: High fall risk, generalized weakness Assistance [level of assistance required for transfers and ambulation]: SBA with front-wheel walker Supervision [direct monitoring required during toileting and ADLs]: Eyes-on Surveillance [continuous indirect monitoring]: Hourly rounding, bed alarm Patient-specific fall prevention interventions for sensory deficits provided, if applicable: [X] Yes CPG GOAL OUTCOME EVALUATION: Plan of Care - Krystyna Alan RN - 03/11/2020 7:00 PM EDT Problem: Patient Care Overview Goal: Plan of Care Review Outcome: Ongoing (Interventions Implemented as Appropriate) 03/10/20 1814 03/11/20 1112 Coping/Psychosocial Plan Of Care Reviewed With -- spouse Plan of Care Review Progress progress toward functional goals is gradual -- OUTCOME EVALUATION NOTE: OUTCOME SUMMARY: Alert and oriented x4, VSS on RA, assessment as documented. Meds given per MAR. NWB to RLE, ambulating to BR with SBA and FWW. C/o 12/19 pain in RLE; PRN dilaudid given x3, see MAR. Splint and jude wrap in place on RLE - CDI and no drainage. No acute events, will continue to monitor and page MD with updates. PLAN MOVING FORWARD: Mon labs, pain mgmt, iv ABx, d/c planning. INDIVIDUALIZED FALL PREVENTION INTERVENTIONS: Patient-specific fall risk factors per assessment: [current deficits]: Gen weaknes, iv access, hosp environment, NWB RLE Assistance [level of assistance required for transfers and ambulation]: 1a FWW Supervision [direct monitoring required during toileting and ADLs]: ind Surveillance [continuous indirect monitoring]: Call miller within reach, bed alarm on, room near nurses station, masimo on, hourly rounding utilized. Patient-specific fall prevention interventions for sensory deficits provided, if applicable: [X] No CPG GOAL OUTCOME EVALUATION: Consult Note - Michelle Xiong MD - 03/11/2020 9:11 AM EDT INFECTIOUS DISEASE CONSULTATION NOTE Reason for Consult: Left foot 4th metatarsal osteomyelitis s/p 4th ray TMA Current antimicrobials: Cefazolin Flagyl Consulting Service: Hospital Medicine Consulting Attending: Robert Grider MD Admission Date: 03/09/2020 History of Present Illness: 64 y.o. male with a history of DMII and bilateral diabetic foot ulcers, hepatitis C s/p Epclusa 2016, cirrhosis, peripheral neuropathy, COPD, tobacco use, and prior osteomyelitis of the left 5th toe 01/2019 s/p amputation, who presented to [facility] from wound care clinic for concerns for worsening diabetic foot ulcer and possible osteomyelitis. Patient has been following with wound care and orthopedics regularly. He completed 42 days of Linezolid 600mg on 10/13/2019 following a 10 day course of keflex 08/2019. MRI left foot without contrast on 12/15/2019 demonstrated mild marrow edema within base of 4th proximal phalax and 4th metatarsal head, without evidence of persistent osteomyelitis on the 5th metatarsal or osteomyelitis of the 4th metatarsal. Visit on 03/07 to wound care was concerning for worsening of wound, so culture was ordered and patient was started on bactrim, planning for a 10 day course. Cultures are now growing highly sensitiveMSSA, beta hemolytic strep not group A or B, as well as B.fragilis and bacteroides species on anaerob ic culture. On visit with orthopedics 03/09, his foot was noted to be increasingly erythematous, andhe was referred to [facility] for further imaging and IV antibiotics. MRI obtained on 03/09 significant for 5th MTP joint dorsally subluxed. 4th metatarsal head ulceration noted to extend to bone, as well as a 2x1.5x1cm gas containing fluid collection in dorsal aspect of4th MTP joint with open communication to the MTP joint. Orthopedics consulted and patient was taken to the OR on 03/10 for 4th ray transmetatarsal amputation. No antibiotics given preoperatively, but given cefazolin intraoperatively. Operative note discusses purulence at the 4th MTP joint with bony erosion at the proximal metatarsal neck, with bone culture sent. ID preliminary recommendations, given ulcer culture history, were to continue cefazolin with addition of metronidazole. Patient having increased pain to foot today, but otherwise no fever, chills, nausea, vomiting, diarrhea. Review of Systems: Pertinent positives and negatives noted in HPI. 14 point ROS otherwise negative Past Medical History: Was treated for hepC with Epclusa from [facility] Current methadone user Past Surgical History: As above Medications: Pertinent prior to admission medications include: Prior to admission bactrim DS Allergies: Allergies Allergen Reactions ??? Morphine Other (See Comments) STATES THAT IT DOES NOT TAKE HIS PAIN AWAY Family History: Per chart review Social History: Lives with his in [place], [place]. One dog. Social drinking, current smoker, previous IV druguse but none for 5 years. In methadone program. Physical Exam: Last value Range last 24 hrs Temperature Temp: 36.6 ??C (97.9 ??F) Temp: [36.3 ??C (97.3 ??F)-36.8 ??C (98.2 ??F)] Heart Rate Heart Rate: 83 Heart Rate: [58-84] Blood Pressure BP: 137/79 BP: (119-186)/(68-114) Respiratory Rate Resp: 16 Resp: [12-20] SpO2 SpO2: 96 % SpO2: [77 %-98 %] General: Alert and oriented, pleasant Head: NC AT EENT: EOMI, no nasal secretions, no tonsillar exudates Neck: no LAD, no JVD Cardiovascular: RRR no obvious MRG no S3 S4 cap refill <2 seconds Pulmonary: Nonlabored respirations. No wheezing, rhonchi, crackles Abdomen: BS + ND NT no rebound tenderness no guarding Ext: left foot with post-operative dressing, not unwrapped. No erythema of exposed toes. Skin: no rashes, no splinter hemorrhages Neuro: alert and oriented to person place time and situation. No facial droop. No dysarthia Psych: normal affect Laboratory: Labs reviewed in chart and significant for: WBC 11, hgb 12.3, cr 0.77 Culture data: 03/07 left foot ulcer wound culture: Aerobic culture - MSSA, moderate BH strep not group A or B Anaerobic culture - B.fragilis and other bacteroides species 03/09 blood cultures - no growth to date 03/10 intraoperative bone cultures - gram stain with GPC, GNR, GPR on multiple cultures, awaiting identification by culture. All proximal bone cultures without growth to date. Antimicrobials on this admission: Cefazolin 03/10 - present Flagyl 03/10 - present Radiology/Studies/Procedures: Imaging studies reviewed. Impression: Soledad Ramos is a 64 y.o. male with a long recent history of left plantar foot surface ulceration with concern for osteomyelitis, failing previous linezolid treatment and outpatient bactrim. He underwent left foot metatarsal 4th ray amputation on 03/10. Prior to admission wound culture showed MSSA, beta hemolytic strep, B.fragilis, and other bacteroides species. Still waiting on the speciation of the intraoperative bone cultures of the distal 4th toe, but all proximal bone cultures are without growth as of yet. Hopeful for good margins. If the proximal bone cultures remain negative, patient has achieved surgical cure and would only need 3-5 of antibiotic treatment after surgical intervention. Ifproximal bone cultures show culture growth within the coming days, patient will need 6 weeks of antibiotics for osteomyelitis. Recommendations: - continue cefazolin and flagyl - follow-up intraoperative bone cultures This patient was discussed with ID attending Dr. Xiong. Recommendations discussed with primary treating team. Thank you very much for this interesting consult and allowing me to participate in this patient's care. We will continue to follow. Donal Serrano MD 03/11/2020 9:11 AM Pager [phone] Infectious Diseases Attending I saw the patient with the infectious diseases fellow. I have made some modifications and agree withthe presentation of data and the assessment and plan as outlined above. Michelle Xiong MD [place] Administrator Page [phone] minutes of this 55 minute visit were spent on the floor/unit in counseling or coordination of care with the patient, regarding treatment of infection as detailed in note above. Plan of Care - Sonido Reddy RN - 03/11/2020 5:36 AM EDT Problem: Patient Care Overview Goal: Plan of Care Review Outcome: Ongoing (Interventions Implemented as Appropriate) 03/10/20 1814 03/10/20 2200 Coping/Psychosocial Plan Of Care Reviewed With -- patient Plan of Care Review Progress progress toward functional goals is gradual -- OUTCOME EVALUATION NOTE: OUTCOME SUMMARY: Patient has been sleeping intermittently throughout the night. VSS. LLE remains elevated while in bed. Dressing in place, and C/D/I. CSM intact. NWB when up. Continues with 2L NC in order to maintain SPO2. Unable to void. Bladders scans performed. Once volume was > 400, straight cath was performed (see I/O). IV abx as per orders. No acute issues noted, overnight. PLAN MOVING FORWARD: Will continue to monitor, administer IV abx, keep LLE elevated while in bed, maintain NWB to LLE, maintain BRIAN drain. Perform neurovascular checks, offer assistance, and otherwise tx as necessary/ordered. INDIVIDUALIZED FALL PREVENTION INTERVENTIONS: Patient-specific fall risk factors per assessment: [current deficits]: PIV, generalized weakness Assistance [level of assistance required for transfers and ambulation]: 1 assist, walker Supervision [direct monitoring required during toileting and ADLs]: Hands on/eyes on Surveillance [continuous indirect monitoring]: Bed alarm, purposeful rounding Patient-specific fall prevention interventions for sensory deficits provided, if applicable: [X] No CPG GOAL OUTCOME EVALUATION: Goal: Individualization & Mutuality Outcome: Ongoing (Interventions Implemented as Appropriate) 03/10/20 0053 Mutuality/Individual Preferences What Anxieties, Fears or Concerns Do You Have About Your Health or Care? none What Questions Do You Have About Your Health or Care? none What Information Would Help Us Give You More Personalized Care? none Goal: Fall Prevention-Safe Patient Handling Outcome: Ongoing (Interventions Implemented as Appropriate) 03/10/202199 [place] Fall Risk History of Falling 0 Secondary Diagnosis 15 Ambulatory Aids 15 Intravenous Therapy/Heparin/Saline Lock 20 Gait/Transferring 10 Mental Status 0 Score 60 OTHER [place] Fall Risk High Restraint Interventions Safety Promotion/Fall Prevention activity supervised Positioning Body Position with 1-person assist Activity Activity Type activity adjusted per tolerance Activity Assistance Provided assistance, 1 person Assistive Device Utilized front-wheel walker Goal: Infection Control Outcome: Ongoing (Interventions Implemented as Appropriate) 03/10/202199 Safety Interventions Isolation Precautions standard precautions maintained Infection Prevention rest/sleep promoted;single patient room provided Coping Strategies Supportive Measures positive reinforcement provided Goal: Discharge Needs Assessment Outcome: Ongoing (Interventions Implemented as Appropriate) 03/10/20 0037 Living Environment Transportation Available family or friend will provide Plan of Care - Víctor Jimenez RN - 03/10/2020 6:23 PM EDT Problem: Patient Care Overview Goal: Plan of Care Review 03/10/20 1814 Coping/Psychosocial Plan Of Care Reviewed With patient Plan of Care Review Progress progress toward functional goals is gradual OUTCOME EVALUATION NOTE: OUTCOME SUMMARY: Pt A&Ox4. Can be confused at times. VSS. Pt placed on 2L NC this AM for desaturations into the low 80s.No c/o pain this shift. at been at beside most of the day. Pt went for 4 toe amputation of left foot this afternoon. Pt back to floor VSS on 4L 02. Dinner ordered and he is resting comfortably. at bedside. Assessment as filed. Will continue to monitor and notify team of any changes. PLAN MOVING FORWARD: IV abx INDIVIDUALIZED FALL PREVENTION INTERVENTIONS: Patient-specific fall risk factors per assessment: [current deficits]: Generalized weakness, IV, surgery Assistance [level of assistance required for transfers and ambulation]: NOOB post surgery Supervision [direct monitoring required during toileting and ADLs]: Hands Surveillance [continuous indirect monitoring]: Purposeful hourly rounding, call miller within reach, rings appropriately, room near unit station, bed alarm set Patient-specific fall prevention interventions for sensory deficits provided, if applicable: [X] Yes CPG GOAL OUTCOME EVALUATION: Op Note - Candi Horvath MD - 03/10/2020 5:03 PM EDT [facility] [place] Patient Name: Soledad Ramos : [id number] MR#: [id number] Case Date: 03/10/2020 Surgeon: Surgeon(s) and Role: * Geovanna Lewis MD - Primary * Candi Horvath MD - Resident * Alonso Glover MD - Resident Preoperative diagnosis: Osteomyelitis Left Foot Postoperative diagnosis: Osteomyelitis Left Foot Procedure(s) (LRB): AMPUTATION, TRANSMETATARSAL (WRVU 12.71) (Left) MODIFIER WOUND VAC (N/A) Findings: Purulence at fourth MTP joint, with bony erosion at the proximal metatarsal neck. Bone culture sent after thorough irrigation of the remaining proximal fourth metatarsal Anesthesia: Anesthesia type not filed in the log. Estimated Blood Loss: * No values recorded between 03/10/2020 4:12 PM and 03/10/2020 5:00 PM * Specimens removed during surgery: None Drains: 1 Surgical Closure: Primary Closure - skin incision is completely closed without any wires, korey, drains or other devices Disposition: awakened from anesthesia, extubated and taken to the recovery room in a stable condition, having suffered no apparent untoward event. Condition: doing well without problems (Please see the Surgical Encounter Summary for any Implant and Specimen details pertinent to this patient.) HPI/Surgical Indications: HTN, HLD, L 5th toe amputation??who??presents??with concern for osteomyelitis of his L 4th metatarsal. Patient was evaluated this morning. We discussed his imaging and pathology, with MRI showing signal changes of left fourth proximal phalanx and MT, indicative of osteomyelitis. We discussed treatmentoption with A 4th ray amputation, with potential for TMA. We plan to proceed with 4th ray amp, with Irrigation and debridement. He is aware he may need multiple procedures, including delayed closure, and potential IV antibiotic treatment pending intraop cultures. Procedure Description: The patient was correctly identified in the same day holding area, the proper operative site was marked and consent was confirmed by the team. The patient was wheeled to the operating room and placed in the supine position on the operating table where MAC anesthesia was administered. All bony prominences were well padded. Preoperative antibiotics were given. A time-out was performed to confirm patient identity, planned surgery, and site according to the [facility] [place] Protocol. Circumferential racquet type incision was made around the fourth toe, and extended proximally over dorsal lateral fourth metatarsal to the same level as the previous fifth metatarsal ray resection. We encountered purulence upon initial incision at the fourth MTP joint. Dissection was taken down directly to bone using sharp knife and Bovie. Fourth metatarsal was amputated at the same level as the previously fifth metatarsal bone, angled from a dorsal distal to plantar proximal position. The plantar ulcer was excised, with a sharp curette to get rid of the poor tissue. The wound was thoroughly irrigated with 3 L of normal saline. Proximal fourth metatarsal bone cultures were taken and sent for extended hold. A BRIAN drain was put in place. Skin was then closed with 2-0 PDS, and 0 Prolene. The wounds were dressed with Xeroform, 4 x 4, and ABD. A posterior slab and U-splint was put in place. The patient was awoken from the anesthetic, transferred back to the hospital bed, and taken to postanesthesia care unit in stable condition. All sponge and needle counts were correct at the end of the case. There were no obvious intraoperative complications. Postoperative plan: Nonweightbearing left lower extremity, splint in place Drain out prior to discharge when less than 5 cc in shift Recommend following up cultures, continuing IV Ancef Associated attestation - Geovanna Lewis MD - 03/14/2020 6:57 AM EST Attestation: Case Date: 03/10/2020 I was present and I participated during the entire procedure (does not need to include opening and closing). Geovanna Lewis MD 03/14/2020 Initial Assessments - Wicho Edwards MSW - 03/10/2020 11:36 AM EDT Office of Care Management Initial Assessment VITALIY Giron reviewed record and discussed patient with Care Team. Source of Information: Patient and medical record Introduced self/reviewed role; services accepted. Reason for Hospitalization: Per H&P admit note by Dr. Patterson dated 03/09/20: osteomyelitis. Past Medical History: Diagnosis Date ??? Cirrhosis Chronic HCV and history of alcohol use ??? COPD (chronic obstructive pulmonary disease) ??? Depression ??? GERD (gastroesophageal reflux disease) ??? Hepatitis C ??? HTN (hypertension) Hospitalizations (Admits) Within the Past 30 Days: None COVID 19-PCR: Date and Time: 03/09/2020 18:13 Resulted: Not detected Anticipated Length Of Stay (If known): Anticipated D/C: 03/13 Current Decision-Making Capacity: Alert, oriented, full capacity to make decisions. Advance Care Planning: Attempt Cardiopulmonary Resuscitation - Inpatient <no information> If AD's have not been completed Padmini Ramos would be surrogate decision maker per [place] surrogate decision making law. Any patient receiving care at [facility] must abide by [place] law. The hierarchy for surrogate decision making [...] (i) The agent with financial power of traffic law attorney or a conservator appointed in accordance with RSA 464-A. (j) The guardian of the patient???s estate. Attempting to locate [place] AD via registry Current Coping/Education/Information Needs: Patient understands course of treatment indicated by theMedical Team Current Functional Ability: Independent Functional Status Prior to Admission: Independent/Completed ADLs and IADLs Home Environment: Lives with spouse, Split level house, 6 steps in, Handicap rail into house [address] [facility] [place] [id number] Social & Family Supports/Community Resources: Patient identified his spouse, 2 adult children and 3 grandchildren as his support network. All live local. Extended Emergency Contact Information Primary Emergency Contact: Padmini Ramos [facility] Relation: Spouse Secondary Emergency Contact: Sparkle Khan [facility] Relation: Child Behavioral Health History: Patient denies. However, medical record indicates AUD and Opoid Use Disorder. Patient currently prescribed methadone for Opoid Use Disorder. Substance Use/Abuse: Tobacco hx: 1 ppd ETOH hx: 3- 24 ounce cans of wicked tea daily Illicit drug use hx: MJ daily/Did not share amount Other Pertinent/Service Specific Information: n/a Health/Prescription Coverage: Primary Insurance: [employer] [place] Payor: [facility] [place] / Plan: BCBS [place] VHP / Product Type: *No Product type* / Secondary Insurance: MEDICARE Prescription Coverage: Same Preferred Pharmacy: [facility] [phone] [facility] [place], [place] - [facility] [address] Other: n/a Primary Care Provider: Janusz Tran APRN [phone] Patient/Caregiver Goals of Treatment: Go home and get better. Potential Needs for Transition of Care: Rehab/SNF: N/A Home Health: VNA/VNH pending/Wound Care DME: N/A Dialysis: N/A Community Resources: N/A Transportation: Spouse when medically ready Other: n/a Anticipated Barriers to Discharge/Special Considerations: none anticipated Assessment/Plan: Data: 64 y/o male who presents to [facility] with osteomyelitis Assessment: Patient laying in bed dressed in street clothes. Upbeat and positive.Cooperative during interview. Minimized his YINKA- AUD and OUD. Plan: Continue to monitor for psychosocial needs Following for [employer] IN[employer] OFFICER CHIEF and care management support through disposition. A member of the Care Management team will continue to monitor progress, follow for continuity of care and assist with transition of care planning. VITALIY Giron Pager: [phone] Plan of Care - Sonido Reddy RN - 03/10/2020 1:07 AM EDT Problem: Patient Care Overview Goal: Plan of Care Review Outcome: Ongoing (Interventions Implemented as Appropriate) 03/10/20 0032 Coping/Psychosocial Plan Of Care Reviewed With patient OUTCOME EVALUATION NOTE: OUTCOME SUMMARY: Assumed care for Patient @ approximately MN. A/O. LR infusing @ 125 ml/hr. Gauze/medipore tape present @ L foot. Left in place. BLLE are kishor L > R. Oriented to room and call miller.NPO since MN for procedure later today. PLAN MOVING FORWARD: Will continue to monitor, keep NPO, maintain foot dressing, administer IVF per orders, offer assistance, and otherwise tx as necessary/ordered. INDIVIDUALIZED FALL PREVENTION INTERVENTIONS: Patient-specific fall risk factors per assessment: [current deficits]: L foot wound, IVF, generalized weakness Assistance [level of assistance required for transfers and ambulation]: 1 assist Supervision [direct monitoring required during toileting and ADLs]: Close, eyes on until otherwise determined Surveillance [continuous indirect monitoring]: Bed alarm, purposeful rounding Patient-specific fall prevention interventions for sensory deficits provided, if applicable: [X] No CPG GOAL OUTCOME EVALUATION: Goal: Individualization & Mutuality Outcome: Ongoing (Interventions Implemented as Appropriate) 03/10/20 0053 Mutuality/Individual Preferences What Anxieties, Fears or Concerns Do You Have About Your Health or Care? none What Questions Do You Have About Your Health or Care? none What Information Would Help Us Give You More Personalized Care? none Goal: Fall Prevention-Safe Patient Handling Outcome: Ongoing (Interventions Implemented as Appropriate) 03/09/20213003/10/20 0032 [place] Fall Risk History of Falling -- 0 Secondary Diagnosis -- 0 Ambulatory Aids -- 0 Intravenous Therapy/Heparin/Saline Lock -- 20 Gait/Transferring -- 10 Mental Status -- 15 Score -- 45 OTHER [place] Fall Risk -- High Restraint Interventions Safety Promotion/Fall Prevention -- safety round/check completed Positioning Body Position -- independent Activity Activity Type -- activity adjusted per tolerance Activity Assistance Provided assistance, stand-by -- Assistive Device Utilized none -- Goal: Infection Control Outcome: Ongoing (Interventions Implemented as Appropriate) 03/10/2031 Safety Interventions Isolation Precautions standard precautions maintained Infection Prevention rest/sleep promoted Coping Strategies Supportive Measures positive reinforcement provided Goal: Discharge Needs Assessment Outcome: Ongoing (Interventions Implemented as Appropriate) 03/10/2036 Living Environment Transportation Available family or friend will provide Consult Note - Perdito Coronel MD - 03/09/2020 1:55 PM EDT Images from the original note were not included. ORTHOPAEDIC SURGERY CONSULT NOTE ATTENDING: Dr. Carlos Bourne Soledad Ramos is a 64 y.o. male who presents to see us in consultation today at the request of Los Grider MD CHIEF COMPLAINT: Left foot plantar wound HPI: Soledad Ramos is a 64 y.o. male with Hepatitis C, cirrhosis, alcoholic neuropathy, COPD, HTN, HLD, L 5th toe amputation who presents with concern for osteomyelitis of his L 4th metatarsal. Patient says he has had wound on plantar surface for about 1 year, and thinks he originally developed it due to his neuropathy but is uncertain. It has not improved. Patient has history of 5th toe amputation 2/2 osteomyelitis 01/28 [facility]. He had L foot MRI 08/29 which showed changes consistent with osteomyelitis in his 4th toe for which he was put on Linezolid for 42 days and has been seen by wound care weekly. Recently patient says he has had more soreness, erythema in area of L plantar wound as well as some drainage from that area. ESR 106, increased from 74 03/07 and WBC 13.7 increased from 12.2. MRI todayshowed osteomyelitis of the 4th proximal phalanx and 4th metatarsal with concern for septic arthritis at the MTP joint. He has a known R great toe fracture he says he suffered earlier. He says he is frustrated with his lack of improvement of his L plantar wound and is hoping for definitive treatment. FOCUSED REVIEW OF SYSTEMS: as above. Active Hospital Problems Diagnosis ??? Osteomyelitis Resolved Hospital Problems No resolved problems to display. Active Non-Hospital Problems Diagnosis ??? Neuropathic ulcer of toe of right foot with fat layer exposed ??? Cellulitis of leg, right ??? Neuropathic ulcer of foot, left, with fat layer exposed ??? Neuropathic ulcer of foot, right, with fat layer exposed ??? SDH (subdural hematoma) ??? Avascular necrosis of humeral head ??? Pain in left shoulder ??? S/P L TKA 12/13/15 Dr. Mallory ??? Cirrhosis ??? Ankle fracture, left ??? Polysubstance abuse ??? Avascular necrosis bilateral knees ??? Confusion ??? Community acquired pneumonia ??? Imbalance ??? Hepatitis C ??? Alcohol dependence ??? Anixety D/O NOS ??? ADHD NOS ??? Chronic back pain ??? Major depressive disorder, single episode, unspecified FAMILY HISTORY: Negative for bleeding/clotting disorders or anesthetic complications. SOCIAL HISTORY: Social History Tobacco Use Smoking Status Current Every Day Smoker ??? Packs/day: 1.00 ??? Years: 42.00 ??? Pack years: 42.00 ??? Types: Cigars, Cigarettes Smokeless Tobacco Never Used Social History Substance and Sexual Activity Alcohol Use Yes ??? Alcohol/week: 24.0 - 25.0 standard drinks ??? Types: 3 - 4 Cans of beer, 21 Standard drinks or equivalent per week Illicits: ETOH Employment: Retired Living Situation: Lives with MEDICATIONS: ??? [START ON 03/10/2020] chlorthalidone (Hygroten) tablet 25 mg ??? [START ON 03/10/2020] citalopram (CeleXA) tablet 20 mg ??? gabapentin (Neurontin) capsule 1,200 mg ??? [START ON 03/10/2020] methadone (Dolophine) tablet 82.5 mg ??? [START ON 03/10/2020] metoprolol tartrate (Lopressor) tablet 25 mg ??? sodium chloride 0.9 % (flush) flush 5 mL ??? sodium chloride 0.9 % (flush) flush 5-20 mL ??? lidocaine (XYLOCAINE) 10 mg/mL (1 %) injection 3 mg ??? lactated ringers infusion ??? acetaminophen (Tylenol) tablet 650 mg ??? nicotine (NICODERM CQ) 21 mg/24 hr patch 21 mg AND [START ON 03/10/2020] nicotine (NICODERM CQ) 21 mg/24 hr patch Patch Verification AND [START ON 03/10/2020] nicotine (NICODERM CQ) 21 mg/24 hr patch Patch Removal ??? melatonin tablet 3 mg ??? LORazepam (Ativan) tablet 0.5-1.5 mg OR LORazepam (ATIVAN) injection 0.5-1.5 mg OR LORazepam (ATIVAN) injection 0.5-1.5 mg ??? thiamine (Vitamin B1) tablet 100 mg OBJECTIVE: Temp: [36.1 ??C (97 ??F)-36.8 ??C (98.3 ??F)] Heart Rate: [63-68] Resp: [18-20] BP: (143-183)/(77-112) Intake/Output Summary (Last 24 hours) at 03/09/20202148 Last data filed at 03/09/20202127 Gross per 24 hour Intake 5 ml Output -- Net 5 ml Body mass index is 29.53 kg/m??. PHYSICAL EXAM: Gen: NAD, resting comfortably, AOx3 HEENT: NC, AT CV: RRR assessed peripherally Pulm: No incr WOB on RA Skin: Intact Psych: Nl mood and affect Left Lower Extremity Exam: Plantar wound that probes to bone Erythema, swelling at dorsum of foot Sensation intact but diminished at foot Motor intact (5/5) to ankle flexion/extension, EHL/FHL/TA Brisk capillary refill distally 2+ DP/PT pulses Dorsal Left Foot Plantar Left Foot Right Lower Extremity LABS: Lab Results Component Value Date NA 133 (L) 03/09/2020 K Not Perf 03/09/2020 CL 93 (L) 03/09/2020 CO2 27 03/09/2020 BUN 7 (L) 03/09/2020 CREATININE 0.94 03/09/2020 GLUCOSE Not Perf 03/09/2020 GLUCFASTING 81 04/07/2019 CALCIUM 10.0 03/09/2020 Lab Results Component Value Date WBC 13.7 (H) 03/09/2020 HGB 13.3 (L) 03/09/2020 HCT 41.3 03/09/2020 MCV 95.8 (H) 03/09/2020 PLATELET 364 (H) 03/09/2020 Lab Results Component Value Date INR 1.1 03/09/2020 Lab Results Component Value Date CRP 102.6 (H) 03/09/2020 IMAGING: XR L Foot 03/09/20 Changes concerning for osteomyelitis of 4th metatarsal MRI L Foot 03/09/20: Changes consistent with osteomyelitis of 4th proximal phalanx, metatarsal ASSESSMENT/RECOMMENDATIONS: 64 y.o. male with Hepatitis C, cirrhosis, alcoholic neuropathy, COPD, HTN, HLD, L 5th toe amputation who presents with concern for osteomyelitis of his L 4th metatarsal. -Patient with elevated inflammatory markers, recently worsening wound with drainage/surrounding cellulitis -Patient frustrated with weekly wound care and lack of improvement, interested in definitive fix forproblem. Discussed that surgery may resolve infection but will require amputation that may ultimately include much of his foot. Patient stated understanding -Will plan for OR as early as tomorrow, please keep NPO at midnight -Rest of care per primary team - Activity - NWB LLE - DVT prophylaxis- per primary - Antibiotics: per primary - Diet - NPO at midnight - Discuss with Dr. Bourne I have contacted the referring team and discussed our evaluation and recommendations as listed above. The orthopaedic service will continue to follow this patient. Thank you for the opportunity to assist in their evaluation and treatment. Please page Orthopaedic consults ([phone]) with any questions or co ncerns. ?? Pedrito Coronel MD P. [phone] 03/09/20 9:49 PM Future Appointments Date Time Provider Department Center 03/15/2020 4:45 PM Niki Stockton APRN [place]ound [facility] 03/17/2020 3:10 PM [facility] MR NURSE [facility] 03/17/2020 4:10 PM [facility] MR 6 [facility] 03/22/2020 3:30 PM Maia Gómez DPM Pod [facility] 03/22/2020 4:00 PM Niki Stockton APRN Wound [facility] ED Triage - Leda Brown RN - 03/09/2020 8:21 AM EDT Arrived to wound care this morning and was advised to come here to the ED due to blood work showing infection with the wound on his foot. documented in this encounter Plan of Treatment Upcoming Encounters Date Type Specialty Care Team Description 12/11/2021 Appointment Radiology 12/11/2021 Office Visit Orthopaedics Marion Tavera APRN [facility] DR ORTHOPAEDIC SURG [place], [place] [address] (Wo rk) 01/15/2022 Appointment Radiology Stiven Cervantes MD [facility] Pulmonary Medici [place], [place] [address] (Wo rk) Scheduled Procedures Name [...] Name Priority Date/Time Associated Diagnosis Comme nts PLACE PICC LINE: Routine 03/14/2020 2:07 Results for this CONTACT VASCULAR ACCESS PM EST proc edure are in the results section. XR PICC PLACEMENT OVER Routine 03/14/2020 1:53 Re sults for this 5 YEARS (IV TEAM) PM EST procedure are in the results section. BMP W/FASTING GLUCOSE Routine 03/14/2020 5:05 Res ults for this AM EST procedure are i n the results section. HEMOGRAM Routine 03/14/2020 5:05 Results for this AM EST procedure are i n the results section. DIFFERENTIAL, AUTOMATED Routine 03/14/2020 5:05 R esults for this AM EST procedure are i n the results section. HC CBC,PLT & AUTO DIFF Routine 03/14/2020 5:05 AM EST BMP W/FASTING GLUCOSE Routine 03/13/2020 4:14 Res ults for this AM EST procedure are i n the results section. HEMOGRAM Routine 03/13/2020 4:14 Results for this AM EST procedure are i n the results section. DIFFERENTIAL, AUTOMATED Routine 03/13/2020 4:14 R esults for this AM EST procedure are i n the results section. HC VENIPUNCTURE Routine 03/13/2020 4:14 AM EST BMP W/FASTING GLUCOSE Routine 03/12/2020 4:11 Res ults for this AM EST procedure are i n the results section. HEMOGRAM Routine 03/12/2020 4:11 Results for this AM EST procedure are i n the results section. DIFFERENTIAL, AUTOMATED Routine 03/12/2020 4:11 R esults for this AM EST procedure are i n the results section. HC VENIPUNCTURE Routine 03/12/2020 4:11 AM EST BMP W/FASTING GLUCOSE Routine 03/11/2020 3:51 Res ults for this AM EDT procedure are i n the results section. HEMOGRAM Routine 03/11/2020 3:51 Results for this AM EDT procedure are i n the results section. DIFFERENTIAL, AUTOMATED Routine 03/11/2020 3:51 R esults for this AM EDT procedure are i n the results section. HC VENIPUNCTURE Routine 03/11/2020 3:51 AM EDT XR FOOT 2 VIEWS LEFT Routine 03/10/2020 9:23 Resu lts for this PM EDT procedure are i n the results section. HC GRAM STAIN FOR Routine 03/10/2020 4:49 BACTERIA PM EDT HC TISSUE Routine 03/10/2020 4:49 HOMOGENIZATION FOR PM EDT CULTURE JOINT CULTURE Routine 03/10/2020 4:49 Results for this PM EDT procedure are i n the results section. JOINT CULTURE Routine 03/10/2020 4:49 Results for this PM EDT procedure are i n the results section. ANAEROBIC CULTURE Routine 03/10/2020 4:49 Results for this PM EDT procedure are i n the results section. ANAEROBIC CULTURE Routine 03/10/2020 4:49 Results for this PM EDT procedure are i n the results section. ANAEROBIC CULTURE Routine 03/10/2020 4:49 Results for this PM EDT procedure are i n the results section. HC TISSUE Routine 03/10/2020 4:48 HOMOGENIZATION FOR PM EDT CULTURE HC GRAM STAIN FOR Routine 03/10/2020 4:48 BACTERIA PM EDT HC TISSUE Routine 03/10/2020 4:48 HOMOGENIZATION FOR PM EDT CULTURE JOINT CULTURE Routine 03/10/2020 4:48 Results for this PM EDT procedure are i n the results section. JOINT CULTURE Routine 03/10/2020 4:48 Results for this PM EDT procedure are i n the results section. JOINT CULTURE Routine 03/10/2020 4:48 Results for this PM EDT procedure are i n the results section. ANAEROBIC CULTURE Routine 03/10/2020 4:48 Results for this PM EDT procedure are i n the results section. ANAEROBIC CULTURE Routine 03/10/2020 4:48 Results for this PM EDT procedure are i n the results section. HC GRAM STAIN FOR Routine 03/10/2020 4:47 BACTERIA PM EDT JOINT CULTURE Routine 03/10/2020 4:47 Results for this PM EDT procedure are i n the results section. ANAEROBIC CULTURE Routine 03/10/2020 4:47 Results for this PM EDT procedure are i n the results section. AMPUTATION, 03/10/2020 3:58 Osteomyelitis Left TRANSMETATARSAL (WRVU PM EDT Foot 12.71) AMPUTATION, Routine 03/10/2020 1:10 TRANSMETATARSAL PM EDT HEMOGRAM Routine 03/10/2020 8:02 Results for this AM EDT procedure are i n the results section. DIFFERENTIAL, AUTOMATED Routine 03/10/2020 8:02 R esults for this AM EDT procedure are i n the results section. HC PARTIAL Routine 03/10/2020 8:02 Results for this THROMBOPLASTIN TIME AM EDT procedur e are in the results section. HC PROTHROMBIN TIME Routine 03/10/2020 8:02 Resul ts for this AM EDT procedure are i n the results section. HC CBC,PLT & AUTO DIFF Routine 03/10/2020 8:02 AM EDT HC VENIPUNCTURE STAT 03/10/2020 8:02 Results f or this AM EDT procedure are i n the results section. HC BLOOD CULTURE- STAT 03/09/2020 8:59 Results for this PM EDT procedure are i n the results section. HC VENIPUNCTURE STAT 03/09/2020 8:59 Results f or this PM EDT procedure are i n the results section. EKG 12-LEAD Routine 03/09/2020 6:45 Leg swelling Results for this PM EDT procedure are i n the results section. XR FOOT MIN 3 VIEWS STAT 03/09/2020 4:50 Resul ts for this LEFT PM EDT procedure are i n the results section. RAPID COVID-19 PCR STAT 03/09/2020 4:12 Result s for this ([facility]) PM EDT procedure are in the results section. ABORH RECHECK STATUS STAT 03/09/2020 3:50 Resu lts for this PM EDT procedure are i n the results section. ABO/RH TYPING STAT 03/09/2020 3:50 Results for this PM EDT procedure are i n the results section. HC PARTIAL STAT 03/09/2020 3:50 Results for this THROMBOPLASTIN TIME PM EDT procedur e are in the results section. ANTIBODY SCREEN STAT 03/09/2020 3:50 Results f or this PM EDT procedure are i n the results section. HC ANTIBODY STAT 03/09/2020 3:50 DETECTION,CAPTURE-R PM EDT MRI FOOT LEFT WO STAT 03/09/2020 2:52 Results for this CONTRAST PM EDT procedure are i n the results section. HC C-REACTIVE PROTEIN STAT 03/09/2020 9:15 Res ults for this AM EDT procedure are i n the results section. HEMOGRAM STAT 03/09/2020 9:15 Results for this AM EDT procedure are i n the results section. DIFFERENTIAL, AUTOMATED STAT 03/09/2020 9:15 R esults for this AM EDT procedure are i n the results section. GOLD TUBE HOLD STAT 03/09/2020 9:15 Results fo r this AM EDT procedure are i n the results section. HC ESR-SEDIMENTATION STAT 03/09/2020 9:15 Resu lts for this RATE, BLOOD AM EDT procedure are i n the results section. HC PROTHROMBIN TIME STAT 03/09/2020 9:15 Resul ts for this AM EDT procedure are i n the results section. HC CBC,PLT & AUTO DIFF STAT 03/09/2020 9:15 AM EDT HC HEMOGLOBIN A1C STAT 03/09/2020 9:15 Results for this AM EDT procedure are i n the results section. BASIC METABOLIC PANEL STAT 03/09/2020 9:15 Res ults for this (NON-FASTING) AM EDT procedure are in the results section. DUPLEX FOR DVT, LEG, STAT 03/09/2020 9:09 Leg swelling Resu lts for this UNILAT AM EDT procedure are i n the [...] this report, please contact e number below. Robert Grider MD IMG DX ORDERABLES Place PICC Line: Contact Vascular Access Page [phone] Extremity to exclude: No restrictions; Is PICC procedure required PRIOR to patients discharge? Yes (03/14/2020 2:07 PM EST) Narrative Sharad Mathis RN - 03/14/2020 2:07 PM EST Sharad Mathis RN ? 03/14/2020 ??2:09 PM PICC/Midline Insertion Procedure Note Indications: Anti-infective [...] the planned procedu re. Hand Hygiene: The carpenter railcar did perform hand hygiene pr ior to line insertion. Catheter type: PICC Lot number: [id number] Procedure Technique: Skin was prepped with chlorhexidine. [...] thang technique and fluoroscopy. Arm circumference was 30 cm at 2 cm above the insertion site. Final catheter length (with trimming): 4 4 cm Internal: 44 cm External: 0 cm Tip in SVC per Dr. Davies. The line was not placed over a guidewire . Post Procedure: Diagnosis: Osteomyelitis Blood return noted on aspiration of line after placement confirmed. 2 mls of normal saline infuse d free flowing to gravity via PICC after insertion. Sterile dressi ng applied: CHG Impregnated Tegaderm. Findings: The patient did tolerate the procedure w ell. No Complications. Procedure Comments: Placed by Thee Oretga M.D. PGY-5 Sharad Mathis RN 03/14/2020 Leonela Sandhu MD PROCEDURE/MINOR SURGICAL ORD ERABLES XR PICC Placement Over 5 Years with Imaging Guidance (IV Team) (03/14/2020 1:53 PM EST) Anatomical Region Laterality Modality N/A Radio Fluoroscopy Specimen (Source) Anatomical Location Collection Method / Collectio n Time Received Time / Laterality Volume Impressions 03/14/2020 2:17 PM EST FINDINGS/IMPRESSION: Intraprocedural frontal radiograph of the mediastinum demonstrates a right-sided PICC line, wi th the catheter tip projected at the cavoatrial junction. I have personally reviewed the image(s) and the resident's interpretation and agree with the findings, Bridgette Davies MD at 03/14/2020 2:17 PM Thank you for letting us participate in the care of this patient. For questions regarding this report, please contact e number below. ? Narrative 03/14/2020 2:17 PM EST EXAMINATION: XR PICC PLACEMENT OVER 5 YEARS WITH IMAGING GUIDANCE (IV TEAM) CLINICAL HISTORY: Confirmation of PICC l ine placement TECHNIQUE: C-arm placement of PICC line. Limited view of the line tip only. COMPARISON: Chest radiograph 05/26/2019 Procedure Note Bridgette Davies MD - 03/14/2020Formatt ing of this note might be different from the original. EXAMINATION: XR PICC PLACEMENT OVER 5 YE ARS WITH IMAGING GUIDANCE (IV TEAM) CLINICAL HISTORY: Confirmation of PICC l ine placement TECHNIQUE: C-arm placement of PICC line. Limited view of the line tip only. COMPARISON: Chest radiograph 05/26/2019 IMPRESSION FINDINGS/IMPRESSION: Intraprocedural fro ntal radiograph of the mediastinum demonstrates a right-sided PICC line, wi th the catheter tip projected at the cavoatrial junction. I have personally reviewed the image(s) and the resident's interpretation and agree with the findings, Bridgette Davies MD at 03/14/2020 2:17 PM Thank you for letting us participate in the care of this patient. For questions regarding this report, please contact e number below. Leonela Sandhu MD IMG FLUORO ORDERABLES (ABNORMAL) Differential, Automated (03/14/2020 5:05 AM EST) [facility] Method Time Signature Neutrophils % 66.5 % [facility] LABORATORY Neutr Abs (ANC) 6.82 (H) 1.70 - [facility] 6.10 [facility] x10(3)/[facility] LABORATORY Lymphocytes % 15.8 % [facility] Lymphocytes Abs 1.6 0.9 - 3.2 [facility] x10(3)/[facility] LABORATORY Monocytes % 10.0 % [facility] Monocyte Abs 1.0 (H) 0.3 - 0.9 [facility] x10(3)/[facility] LABORATORY Eosinophils % 6.3 % [facility] Eosinophils Abs 0.6 (H) 0.0 - 0.4 [facility] x10(3)/[facility] LABORATORY Basophils % 0.8 % [facility] Basophils Abs 0.1 0.0 - 0.1 [facility] x10(3)/[facility] LABORATORY Immature Gran % 0.60 % [facility] Comment: Immature granulocytes(IG's)percentage an d absolute count will include metamyelocytes, myelocytes, and promyelo cytes. Blood smears from CBCs yielding IG's will be scanned manually for concor dance. If this scan disagrees with the automated IG or if promyelocytes are not ed, a manual differential will be performed. Shannan Gran Abs 0.06 (H) 0.00 - 0.04 x10(3)/[facility] LABORATORY Specimen Anatomical Collection Method Collection Time Receive d Time (Source) Location / / Volume Laterality Blood specimen 03/14/2020 5:05 AM 020 5:31 (specimen) EST AM EST Resulting Agency Comment Spec In Lab Candi Horvath MD HEMATOLOGY ORDERABLES Performing Organization Address City/State/Z[place] [address] (ABNORMAL) Hemogram (03/14/2020 5:05 AM EST) Analysis Performed At Patho logist Time Signature WBC 10.2 (H) 4.0 - 9.5 [facility] LABORATORY RBC 4.17 (L) 4.58 - [place] 5.54 [facility] x10(6)/[facility] LABORATORY Hemoglobin 12.9 (L) 13.7 - [facility] 16.[facility] gm/dL [facility] LABORATORY Hematocrit 39.0 (L) 40.5 - [facility] 48.5 % [facility] LABORATORY MCV 93.5 (H) 82.9 - [facility] 93.1 [facility] LABORATORY MCH 30.9 27.5 - [facility] 32.1 pg [facility] LABORATORY MCHC 33.1 32.0 - [place] 35.7 gm/dL [facility] LABORATORY Platelets 398 (H) 145 - 357 [facility] x10(3)/[facility] LABORATORY RDWSD 46.1 (H) 36.0 - [facility] 45.0 [facility] LABORATORY RDWCV 13.4 11.4 - [facility] 13.8 % [facility] LABORATORY MPV 9.2 7.6 - 12.9 [facility] LABORATORY nRBC % Auto 0.0 % [facility] LABORATORY nRBC Abs Auto 0.000 0.000 - [facility] [place] 0.000 [facility] x10(3)/[facility] LABORATORY Specimen Anatomical Collection Method Collection Time Receive d Time (Source) Location / / Volume Laterality Blood specimen 03/14/2020 5:05 AM 020 5:31 (specimen) EST AM EST Resulting Agency Comment Spec In Lab Candi Horvath MD HEMATOLOGY ORDERABLES Performing Organization Address City/State/ZIP [place] [address] (ABNORMAL) BMP w/fasting Glucose (03/14/2020 5:05 AM EST) P athologist Signature Glucose 95 65 - 99 [facility] Fasting mg/dL [facility] Comment: ?Fasting* Glucose Interpretive C riteria Normal ?65-99 mg/dL Impaired Fasting glucose ?100-125 mg/dL Consistent with Diabetes Mellitus ? >or= 126 mg/dL *Fasting is defined as no caloric intake for at least 8 hours In the absence of unequivocal hypergly cemia a plasma glucose value of >or= 126 mg/dL should be repeated on a subseq uent day. Diagnosis and Classification of Diabetes Mellitus, Position Statement from the [employer]. ??Diabete s Care, Volume 33, Supplement 1, May 2009 BUN 7 (L) 10 - 20 mg/dL [facility] LABORATORY Creatinine 0.67 (L) 0.80 - 1.50 mg/dL [facility] LABORATORY Sodium 136 135 - 145 [...] if there are any qu estions. Chloride 100 98 - 107 mmol/L [facility] CO2 27 22 - 31 mmol/L [facility] Anion Gap 9 5 - 15 mmol/L [facility] LABORATORY Calcium 9.5 8.5 - 10.5 mg/dL [facility] LABORATORY Estimated GFR 100 >=60 mL/min/1.73 m?? [facility] Comment: The eGFR was calculated using the CKD-EP I equation. As with all creatinine based estimates of kidney function, eGFR values calculated with the CKD-EPI equation are not accurate in patients wi th acute kidney failure, extremes of body mass or the acutely ill. [email or web address] [employer] [email or web address] eGFR 116 >=60 mL/min/1.73 m?? [facility] Comment: The eGFR was calculated using the CKD-EP I equation. As with all creatinine based estimates of kidney function, eGFR values calculated with the CKD-EPI equation are not accurate in patients wi th acute kidney failure, extremes of body mass or the acutely ill. [email or web address] Specimen Anatomical Collection Method Collection Time Receive d Time (Source) Location / / Volume Laterality Blood specimen 03/14/2020 5:05 AM 020 5:31 (specimen) EST AM EST Resulting Agency Comment Spec In Lab Robert Grider MD CHEMISTRY ORDERABLES Performing Organization Address City/State/ZIP [place] [address] (ABNORMAL) Differential, Automated (03/13/2020 4:14 AM EST) [facility] gist Method Time Signature Neutrophils % 65.8 % [facility] LABOR[facility]ORY Neutr Abs (ANC) 6.88 (H) 1.70 - [facility] 6.10 [facility] x10(3)/[facility] LABORATORY Lymphocytes % 17.4 % [facility] LABORATORY Lymphocytes Abs 1.8 0.9 - 3.2 [facility] x10(3)/[facility] LABORATORY Monocytes % 9.9 % [facility] LABORATORY Monocyte Abs 1.0 (H) 0.3 - 0.9 [facility] x10(3)/[facility] LABORATORY Eosinophils % 5.6 % [facility] LABORATORY Eosinophils Abs 0.6 (H) 0.0 - 0.4 [facility] x10(3)/[facility] LABORATORY Basophils % 0.7 % [facility] LABORATORY Basophils Abs 0.1 0.0 - 0.1 [facility] x10(3)/[facility] LABORATORY Immature Gran % 0.60 % [facility] Comment: Immature granulocytes(IG's)percentage an d absolute count will include metamyelocytes, myelocytes, and promyelo cytes. Blood smears from CBCs yielding IG's will be scanned manually for concangelito dance. If this scan disagrees with the automated IG or if promyelocytes are not ed, a manual differential will be performed. Shannan Gran Abs 0.06 (H) 0.00 - 0.04 x10(3)/[facility] LABORATORY Specimen Anatomical Collection Method Collection Time Receive d Time (Source) Location / / Volume Laterality Blood specimen 03/13/2020 4:14 AM 020 4:50 (specimen) EST AM EST Resulting Agency Comment Spec In Lab Candi Horvath MD HEMATOLOGY ORDERABLES Performing Organization Address City/State/ZIP [place] [address] (ABNORMAL) Hemogram (03/13/2020 4:14 AM EST) Analysis Performed At Patho logist Time Signature WBC 10.4 (H) 4.0 - 9.5 [facility] x10(3)/[facility] LABORATORY RBC 4.12 (L) 4.58 - [facility] [employer] 5.54 [facility] x10(6)/[facility] LABORATORY Hemoglobin 12.7 (L) 13.7 - [facility] g[facility]/dL [facility] LABORATORY Hematocrit 38.6 (L) 40.5 - [facility] [place] 48.5 % [facility] LABORATORY MCV 93.7 (H) 82.9 - [facility] 93.1 [facility] LABORATORY MCH 30.8 27.5 - [facility] [place] 32.1 pg [facility] LABORATORY MCHC 32.9 32.0 - [facility] [employer] 35.7 gm/dL [facility] LABORATORY Platelets 344 145 - 357 [facility] x10(3)/[facility] LABORATORY RDWSD 45.5 (H) 36.0 - [facility] 45.0 [facility] LABORATORY RDWCV 13.3 11.4 - [facility] [employer] 13.8 % [facility] LABORATORY MPV 9.5 7.6 - 12.9 [facility] LABORATORY nRBC % Auto 0.0 % [facility] LABORATORY nRBC Abs Auto 0.000 0.000 - [facility] [place] 0.000 [facility] x10(3)/[facility] LABORATORY Specimen Anatomical Collection Method Collection Time Receive d Time (Source) Location / / Volume Laterality Blood specimen 03/13/2020 4:14 AM 020 4:50 (specimen) EST AM EST Resulting Agency Comment Spec In Lab Candi Horvath MD HEMATOLOGY ORDERABLES Performing Organization Address City/State/ZIP [place] [address] (ABNORMAL) BMP w/fasting Glucose (03/13/2020 4:14 AM EST) athologist Signature Glucose 91 65 - 99 [facility] Fasting mg/dL [facility] LAB[facility]ORY Comment: ?Fasting* Glucose Interpretive C riteria Normal ?65-99 mg/dL Impaired Fasting glucose ?100-125 mg/dL Consistent with Diabetes Mellitus ? >or= 126 mg/dL *Fasting is defined as no caloric intake for at least 8 hours In the absence of unequivocal hypergly cemia a plasma glucose value of >or= 126 mg/dL should be repeated on a subseq uent day. Diagnosis and Classification of Diabetes Mellitus, Position Statement from the [employer]. ??Diabete s Care, Volume 33, Supplement 1, May 2009 BUN 8 (L) 10 - 20 mg/dL [facility] LABORATORY Creatinine 0.76 (L) 0.80 - 1.50 mg/dL [facility] LABORATORY Sodium 136 135 - 145 mmol/L [facility] LABOR[facility] Potassium 3.9 3.5 - 5.0 mmol/L [facility] LAB[facility] Comment: Please note: ??Patients with WBC >100,00 0 may have falsely elevated Potassium levels. ??For accurate Potassium quantif ication in these patients send serum separator tube (gold top) for subsequent determinations. ??Contact the Clinical Chemistry Laboratory if there are any qu estions. Chloride 101 98 - 107 mmol/L [facility] CO2 25 22 - 31 mmol/L [facility] Anion Gap 10 5 - 15 mmol/L [facility] Calcium 9.4 8.5 - 10.5 mg/dL [facility] Estimated GFR 95 >=60 mL/min/1.73 m?? [facility] Comment: The eGFR was calculated using the CKD-EP I equation. As with all creatinine based estimates of kidney function, eGFR values calculated with the CKD-EPI equation are not accurate in patients wi th acute kidney failure, extremes of body mass or the acutely ill. [email or web address]/[email or web address] eGFR 110 >=60 mL/min/1.73 m?? [facility] Comment: The eGFR was calculated using the CKD-EP I equation. As with all creatinine based estimates of kidney function, eGFR values calculated with the CKD-EPI equation are not accurate in patients wi th acute kidney failure, extremes of body mass or the acutely ill. [email or web address] Specimen Anatomical Collection Method Collection Time Receive d Time (Source) Location / / Volume Laterality Blood specimen 03/13/2020 4:14 AM 020 4:50 (specimen) EST AM EST Resulting Agency Comment Spec In Lab Robert Grider MD CHEMISTRY ORDERABLES Performing Organization Address City/State/ZIP Code Phon e Number [place] [id number] H[address] LAB[address] (ABNORMAL) Differential, Automated (03/12/2020 4:11 AM EST) [facility] Method Time Signature Neutrophils % 66.3 % [facility] LABOR[facility]ORY Neutr Abs (ANC) 6.84 (H) 1.70 - [facility] 6.10 [facility] x10(3)/[facility] LABORATORY Lymphocytes % 16.7 % [facility] LABOR[facility]ORY Lymphocytes Abs 1.7 0.9 - 3.2 [facility] x10(3)/[facility] LABORATORY Monocytes % 11.2 % [facility] LABOR[facility] Monocyte Abs 1.2 (H) 0.3 - 0.9 [facility] x10(3)/[facility] LABORATORY Eosinophils % 4.9 % [facility] Eosinophils Abs 0.5 (H) 0.0 - 0.4 [facility] x10(3)/[facility] LABORATORY Basophils % 0.6 % [facility] Basophils Abs 0.1 0.0 - 0.1 [facility] x10(3)/[facility] LABORATORY Immature Gran % 0.30 % [facility] Comment: Immature granulocytes(IG's)percentage an d absolute count will include metamyelocytes, myelocytes, and promyelo cytes. Blood smears from CBCs yielding IG's will be scanned manually for concor dance. If this scan disagrees with the automated IG or if promyelocytes are not ed, a manual differential will be performed. Shannan Gran Abs 0.03 0.00 - 0.04 x10(3)/[facility] MAR Y [facility] LABORATORY Specimen Anatomical Collection Method Collection Time Receive d Time (Source) Location / / Volume Laterality Blood specimen 03/12/2020 4:11 AM 020 4:25 (specimen) EST AM EST Resulting Agency Comment Spec In Lab Candi Lizzy Horvath MD HEMATOLOGY ORDERABLES Performing Organization Address City/State/Z[place] [address] (ABNORMAL) Hemogram (03/12/2020 4:11 AM EST) Analysis Performed At Patho logist Time Signature WBC 10.3 (H) 4.0 - 9.5 [facility] x10(3)/[facility] LABORATORY RBC 3.85 (L) 4.58 - [facility].54 [facility] x10(6)/[facility] LABORATORY Hemoglobin 12.2 (L) 13.7 - [facility] 16.[facility] gm/dL [facility] Hematocrit 36.4 (L) 40.5 - [facility] 48.5 % [facility] MCV 94.5 (H) 82.9 - [facility] 93.1 fL [facility] MCH 31.7 27.5 - [place] 32.1 pg [facility] MCHC 33.5 32.0 - [facility] 35.7 gm/dL [facility]ORY Platelets 308 145 - 357 [facility] x10(3)/[facility] LABORATORY RDWSD 46.7 (H) 36.0 - [facility] 45.0 [facility] LABORATORY RDWCV 13.5 11.4 - [facility] 13.8 % [facility] LABORATORY MPV 9.4 7.6 - 12.9 [facility] LABORATORY nRBC % Auto 0.0 % [facility] nRBC Abs Auto 0.000 0.000 - [facility] 0.000 [facility] x10(3)/[facility] LABORATORY Specimen Anatomical Collection Method Collection Time Receive d Time (Source) Location / / Volume Laterality Blood specimen 03/12/2020 4:11 AM 020 4:25 (specimen) EST AM EST Resulting Agency Comment Spec In Lab Candi Horvath MD HEMATOLOGY ORDERABLES Performing Organization Address City/State/ZIP [place] [address] (ABNORMAL) BMP w/fasting Glucose (03/12/2020 4:11 AM EST) athologist Signature Glucose 77 65 - 99 [facility] Fasting mg/dL [facility] Comment: ?Fasting* Glucose Interpretive C riteria Normal ?65-99 mg/dL Impaired Fasting glucose ?100-125 mg/dL Consistent with Diabetes Mellitus ? >or= 126 mg/dL *Fasting is defined as no caloric intake for at least 8 hours In the absence of unequivocal hypergly cemia a plasma glucose value of >or= 126 mg/dL should be repeated on a subseq uent day. Diagnosis and Classification of Diabetes Mellitus, Position Statement from the [employer]. ??Diabete s Care, Volume 33, Supplement 1, May 2009 BUN 7 (L) 10 - 20 mg/dL [facility] Creatinine 0.73 (L) 0.80 - 1.50 mg/dL [facility] LABOR[facility]ORY Sodium 135 135 - 145 mmol/L [facility] [...] estions. Chloride 101 98 - 107 mmol/L [facility] CO2 24 22 - 31 mmol/L [facility] Anion Gap 10 5 - 15 mmol/L [facility] Calcium 9.2 8.5 - 10.5 mg/dL [facility] Estimated GFR 97 >=60 mL/min/1.73 m?? [facility] Comment: The eGFR was calculated using the CKD-EP I equation. As with all creatinine based estimates of kidney function, eGFR values calculated with the CKD-EPI equation are not accurate in patients wi th acute kidney failure, extremes of body mass or the acutely ill. [email or web address] eGFR 112 >=60 mL/min/1.73 m?? [facility] Comment: The eGFR was calculated using the CKD-EP I equation. As with all creatinine based estimates of kidney function, eGFR values calculated with the CKD-EPI equation are not accurate in patients wi th acute kidney failure, extremes of body mass or the acutely ill. [email or web address] PR[facility]f Specimen Anatomical Collection Method Collection Time Receive d Time (Source) Location / / Volume Laterality Blood specimen 03/12/2020 4:11 AM 020 4:25 (specimen) EST AM EST Resulting Agency Comment Spec In Lab Robert Grider MD CHEMISTRY ORDERABLES Performing Organization Address City/State/ZIP [place] [address] (ABNORMAL) Differential, Automated (03/11/2020 3:51 AM EDT) [facility] gist Method Time Signature Neutrophils % 69.5 % [facility] Neutr Abs (ANC) 7.66 (H) 1.70 - [facility] 6.10 [facility] x10(3)/[facility] L LABORATORY Lymphocytes % 14.2 % [facility] Lymphocytes Abs 1.6 0.9 - 3.2 [facility] x10(3)/[facility] LABORATORY Monocytes % 11.1 % [facility] Monocyte Abs 1.2 (H) 0.3 - 0.9 [facility] x10(3)/[facility] LABORATORY Eosinophils % 4.4 % [facility] Eosinophils Abs 0.5 (H) 0.0 - 0.4 [facility] x10(3)/[facility] LABORATORY Basophils % 0.5 % [facility] Basophils Abs 0.1 0.0 - 0.1 [facility] x10(3)/[facility] LABORATORY Immature Gran % 0.30 % [facility] Comment: Immature granulocytes(IG's)percentage an d absolute count will include metamyelocytes, myelocytes, and promyelo cytes. Blood smears from CBCs yielding IG's will be scanned manually for concor dance. If this scan disagrees with the automated IG or if promyelocytes are not ed, a manual differential will be performed. Shannan Gran Abs 0.03 0.00 - 0.04 x10(3)/[facility] MAR Y [facility] LABOR[facility]ORY Specimen Anatomical Collection Method Collection Time Receive d Time (Source) Location / / Volume Laterality Blood specimen 03/11/2020 3:51 AM 020 4:22 (specimen) EDT AM EDT Resulting Agency Comment Spec In Lab Candining Horvath MD HEMATOLOGY ORDERABLES Performing Organization Address City/State/ZIP [place] [address] (ABNORMAL) Hemogram (03/11/2020 3:51 AM EDT) Analysis Performed At Patho logist Time Signature WBC 11.0 (H) 4.0 - 9.5 [facility] x10(3)/[facility] LABORATORY RBC 3.91 (L) 4.58 - [facility] 5.54 [facility] x10(6)/[facility] LABORATORY Hemoglobin 12.3 (L) 13.7 - [place] 16.5 gm/dL [facility] Hematocrit 37.1 (L) 40.5 - [facility] 48.5 % [facility] LAB[facility] MCV 94.9 (H) 82.9 - [facility] [place] 93.1 [facility] LABORATORY MCH 31.5 27.5 - [place] [facility] 32.1 pg [facility] LABORATORY MCHC 33.2 32.0 - [place] 35.7 gm/dL [facility]ORATORY Platelets 316 145 - 357 [facility] x10(3)/[facility] LABORATORY RDWSD 47.2 (H) 36.0 - [place] 45.0 [facility] LABORATORY RDWCV 13.6 11.4 - [facility] 13[facility] % [facility] LAB[facility] MPV 9.3 7.6 - 12.9 [facility] LABORATORY nRBC % Auto 0.0 % [facility] nRBC Abs Auto 0.000 0.000 - [facility] x10(3)/[facility] LABORATORY Specimen Anatomical Collection Method Collection Time Receive d Time (Source) Location / / Volume Laterality Blood specimen 03/11/2020 3:51 AM 020 4:22 (specimen) EDT AM EDT Resulting Agency Comment Spec In Lab Candi B Alexandru DYSON HEMATOLOGY ORDERABLES Performing Organization Address City/State/ZIP [place] [address] (ABNORMAL) BMP w/fasting Glucose (03/11/2020 3:51 AM EDT) athologist Signature Glucose 80 65 - 99 [facility] Fasting mg/dL [facility] Comment: ?Fasting* Glucose Interpretive C riteria Normal ?65-99 mg/dL Impaired Fasting glucose ?100-125 mg/dL Consistent with Diabetes Mellitus ? >or= 126 mg/dL *Fasting is defined as no caloric intake for at least 8 hours In the absence of unequivocal hypergly cemia a plasma glucose value of >or= 126 mg/dL should be repeated on a subseq uent day. Diagnosis and Classification of Diabetes Mellitus, Position Statement from the [employer]. ??Diabete s Care, Volume 33, Supplement 1, May 2009 BUN 8 (L) 10 - 20 mg/dL [facility] Creatinine 0.77 (L) 0.80 - 1.50 mg/dL [facility] LABOR[facility]ORY Sodium 133 (L) 135 - 145 mmol/L [facility] Potassium 3.9 3.5 - 5.0 mmol/L [facility] Comment: Please note: ??Patients with WBC >100,00 0 may have falsely elevated Potassium levels. ??For accurate Potassium quantif ication in these patients send serum separator tube (gold top) for subsequent determinations. ??Contact the Clinical Chemistry Laboratory if there are any qu estions. Chloride 98 98 - 107 mmol/L [facility] CO2 26 22 - 31 mmol/L [facility] Anion Gap 9 5 - 15 mmol/L [facility] Calcium 9.2 8.5 - 10.5 mg/dL [facility] Estimated GFR 95 >=60 mL/min/1.73 m?? [facility] Comment: The eGFR was calculated using the CKD-EP I equation. As with all creatinine based estimates of kidney function, eGFR values calculated with the CKD-EPI equation are not accurate in patients wi th acute kidney failure, extremes of body mass or the acutely ill. [email or web address] PR[facility]nkf eGFR 110 >=60 mL/min/1.73 m?? [facility] Comment: The eGFR was calculated using the CKD-EP I equation. As with all creatinine based estimates of kidney function, eGFR values calculated with the CKD-EPI equation are not accurate in patients wi th acute kidney failure, extremes of body mass or the acutely ill. [email or web address] Specimen Anatomical Collection Method Collection Time Receive d Time (Source) Location / / Volume Laterality Blood specimen 03/11/2020 3:51 AM 020 4:22 (specimen) EDT AM EDT Resulting Agency Comment Spec In Lab Robert Grider MD CHEMISTRY ORDERABLES Performing Organization Address City/State/ZIP Code [place] [address] XR Foot 2 views Left (03/10/2020 9:23 PM EDT) Anatomical Region Laterality Modality Foot Left Digital Radiography Specimen (Source) Anatomical Location Collection Method / Collectio n Time Received Time / Laterality Volume Impressions 03/11/2020 2:41 PM EDT 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 Thank you for letting us participate in the care of this patient. For questions regarding this report, please contact e number below. ? Narrative 03/11/2020 2:41 PM EDT EXAMINATION: XR FOOT 2 VIEWS LEFT CLINICAL HISTORY: s/p L 4th ray amp TECHNIQUE: 2 views LEFT foot COMPARISON: Foot radiographs from 03/09/2020. FINDINGS: An overlying cast obscures some bony det ail. Interval amputation of the fourth ray at the mid metatarsal. Unchanged all earance of prior fifth ray amputation. The previously seen soft tissue calcific ation distal to the fifth ray amputation is identified. Surgical drain projects a long the dorsum of the foot. Procedure Note Davide López MD - 03/11/2020Formatt ing of this note might be different from the original. EXAMINATION: XR FOOT 2 VIEWS LEFT CLINICAL HISTORY: s/p L 4th ray amp TECHNIQUE: 2 views LEFT foot COMPARISON: Foot radiographs from 03/09/2020. FINDINGS: An overlying cast obscures some bony det ail. Interval amputation of the fourth ray at the mid metatarsal. Unchanged all earance of prior fifth ray amputation. The previously seen soft tissue calcific ation distal to the fifth ray amputation is identified. Surgical drain projects a long the dorsum of the foot. 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 Thank you for letting us participate in the care of this patient. For questions regarding this report, please contact e number below. Robert Grider MD IMG DX ORDERABLES (ABNORMAL) Anaerobic Culture (03/10/2020 4:49 PM EDT) [employer] Method Time Signature Anaerobic Rare [place] Culture Prevotella [place]AR species (A) [facility] Organism Prevotella [place] species (A) [facility] LABOR[facility] Specimen Anatomical Collection Method Collection Time Receive d Time (Source) Location / / Volume Laterality Joint sample STRUCTURE OF LEFT 03/10/2020 4:49 PM 02/11 4:49 (specimen) FOOT / Unknown EDT PM EDT Comment: LEFT 4TH RAY,PROXIMAL BONE CULT URE # 2 Resulting Agency Comment Spec In Lab Geovanna Lewis MD MICROBIOLOGY - GENERAL ORDER SILAS Performing Organization Address City/State/Z[place] [address] (ABNORMAL) Joint Culture (03/10/2020 4:49 PM EDT) Component Value Ref Test Analysis Performed At [employer] Range Method Time Signature Joint Coagulase negative Staphylococcus species isolated from br oth culture. [place] Culture Susceptibilities previously reported SECTION No growth on original plates. [facility] Gram Stain No Neutrophils seen. [place] No microorganisms seen. [facility] OCK () [facility] Organism Coagulase negative [place] Staphylococcus SECTION species (A) [facility] Specimen Anatomical Collection Method Collection Time Receive d Time (Source) Location / / Volume Laterality Joint sample STRUCTURE OF LEFT 03/10/2020 4:49 PM 02/11 4:49 (specimen) FOOT / Unknown EDT PM EDT Comment: LEFT 4TH RAY,PROXIMAL BONE CULT URE # 2 Resulting Agency Comment Spec In Lab Geovanna Lewis MD MICROBIOLOGY - GENERAL ORDER SILAS Performing Organization Address City/[facility]/ZIP [place] [address] (ABNORMAL) Anaerobic Culture (03/10/2020 4:49 PM EDT) [employer] Method Time Signature Anaerobic One colony of [place] Culture Prevotella SECTION species (A) [facility] Organism Prevotella [place] species (A) [facility] LABOR[facility]ORY Specimen Anatomical Collection Method Collection Time Receive d Time (Source) Location / / Volume Laterality Joint sample STRUCTURE OF LEFT 03/10/2020 4:49 PM 02/11 4:49 (specimen) FOOT / Unknown EDT PM EDT Comment: LEFT 4TH RAY,PROXIMAL BONE CULT URE # 1 Resulting Agency Comment Spec In Lab Geovanna Lewis MD MICROBIOLOGY - GENERAL ORDER SILAS Performing Organization Address City/[facility]/ZIP [place] [address] (ABNORMAL) Anaerobic Culture (03/10/2020 4:49 PM EDT) [employer] Method Time Signature Anaerobic Rare Bacteroides fragilis Group [place] Culture Few Bacteroides species [facility] () [facility] Organism Bacteroides [place] fragilis Group SECTION () [facility] Organism Bacteroides [place] species (A) [facility] Specimen Anatomical Collection Method Collection Time Receive d Time (Source) Location / / Volume Laterality Joint sample STRUCTURE OF LEFT 03/10/2020 4:49 PM 02/11 4:49 (specimen) FOOT / Unknown EDT PM EDT Comment: LEFT 4TH RAY, INFECTED BONE CUL TURE # 2 Resulting Agency Comment Spec In Lab Geovanna Lewis MD MICROBIOLOGY - GENERAL ORDER SILAS Performing Organization Address City/[facility]/ZIP [facility] [place] [address] (ABNORMAL) Joint Culture (03/10/2020 4:49 PM EDT) Component Value Ref Test Analysis Performed At [employer] Range Method Time Signature Joint Rare Pasteurella multocida MAR Y Culture Rare Streptococcus milleri, anginosis group : Susceptibilities previously [place] reported [facility] Gram Stain Many Neutrophils seen [place] Rare Gram Positive Cocci seen [place] Results called to and read back by DR. VILLAGOMEZ [facility] Organism Pasteurella [place] multocida (A) [facility] Organism Streptococcus [place] milleri, anginosis SECTION group () [facility] Organism Gram Positive Cocci [place] (A) [facility] Specimen Anatomical Collection Method Collection Time Receive d Time (Source) Location / / Volume Laterality Joint sample STRUCTURE OF LEFT 03/10/2020 4:49 PM 02/11 4:49 (specimen) FOOT / Unknown EDT PM EDT Comment: LEFT 4TH RAY, INFECTED BONE CUL TURE # 2 Resulting Agency Comment Spec In Lab Geovanna Lewis MD MICROBIOLOGY - GENERAL ORDER SILAS Performing Organization Address City/[facility]/ZIP [place] [address] (ABNORMAL) Anaerobic Culture (03/10/2020 4:48 PM EDT) Patholo gist Method Time Signature Anaerobic Rare [facility] Culture Prevotella [place] species () [facility] Organism Prevotella [place] species (A) [facility] Specimen Anatomical Collection Method Collection Time Receive d Time (Source) Location / / Volume Laterality Joint sample STRUCTURE OF LEFT 03/10/2020 4:48 PM 02/11 4:48 (specimen) FOOT / Unknown EDT PM EDT Comment: LEFT 4TH RAY,PROXIMAL BONE CULT URE # 3 Resulting Agency Comment Spec In Lab Geovanna Lewis MD MICROBIOLOGY - GENERAL ORDER SILAS Performing Organization Address City/State/ZIP [place] [address] (ABNORMAL) Joint Culture (03/10/2020 4:48 PM EDT) Component Value Ref Test Analysis Performed At Patholo gist Range Method Time Signature Joint Rare Streptococcus milleri, anginosis gr oup : Susceptibilities previously [facility] Culture reported SECTION Coagulase negative Staphylococcus species isolated from br oth culture. [facility] Gram Stain Few Neutrophils seen [place] No microorganisms seen. [facility] OCK (A) [facility] Organism Coagulase negative [place] Staphylococcus [place]GAR species (A) [facility] Organism Streptococcus LLODY milleri, anginosis SECTION group (A) [facility] Specimen Anatomical Collection Method Collection Time Receive d Time (Source) Location / / Volume Laterality Joint sample STRUCTURE OF LEFT 03/10/2020 4:48 PM 02/11 4:48 (specimen) FOOT / Unknown EDT PM EDT Comment: LEFT 4TH RAY,PROXIMAL BONE CULT URE # 3 Resulting Agency Comment Spec In Lab Organism Antibiotic Method Susceptibility Coagulase negative staphylococcus Cefazolin MICROSCAN METH OD Resistant species Coagulase negative staphylococcus Ceftriaxone [facility] METH OD Resistant species Coagulase negative staphylococcus Ciprofloxacin [facility] METH OD Sensitive species Coagulase negative staphylococcus Clindamycin [facility] M[facility] OD Intermediate species Coagulase negative staphylococcus Erythromycin [facility] M[facility] OD Resistant species Coagulase negative staphylococcus Gentamicin [facility] M[facility] OD Sensitive species Comment: Gentamicin is not a ppropriate for [place]-therapy. Coagulase negative staphylococcus Levofloxacin [facility] METH OD Sensitive species Coagulase negative staphylococcus Oxacillin [facility] METH OD Resistant species Coagulase negative staphylococcus Tetracycline [facility] METH OD Sensitive species Coagulase negative staphylococcus Trimethoprim/Sulfa MICROSCAN M ETHOD Sensitive species Coagulase negative staphylococcus Vancomycin [facility] METH OD Sensitive species Geovanna Lewis MD MICROBIOLOGY - GENERAL ORDER SILAS Performing Organization Address City/State/ZIP [place] [address] (ABNORMAL) Joint Culture (03/10/2020 4:48 PM EDT) Component Value Ref Test Analysis Performed At [facility] Range Method Time Signature Joint Peptostreptococcus anaerobius isolated from broth culture. [place] Culture No growth on original plates. SECTION () [facility] Gram Stain No Neutrophils seen. [place] No microorganisms seen. [facility] OCK (A) [facility] Organism Peptostreptococcus [place] anaerobius (A) [facility] LABOR[facility]ORY Specimen Anatomical Collection Method Collection Time Receive d Time (Source) Location / / Volume Laterality Joint sample STRUCTURE OF LEFT 03/10/2020 4:48 PM 02/11 4:48 (specimen) FOOT / Unknown EDT PM EDT Comment: LEFT 4TH RAY,PROXIMAL BONE CULT URE # 1 Resulting Agency Comment Spec In Lab Geovanna Lewis MD MICROBIOLOGY - GENERAL ORDER SILAS Performing Organization Address City/[facility]/ZIP Code Phon e Number [address] (ABNORMAL) Anaerobic Culture (03/10/2020 4:48 PM EDT) Component Value Ref Test Analysis Performed At [facility] Range Method Time Signature Anaerobic Few Bacteroides fragilis Group [place] Culture Moderate Bacteroides species H [facility] Susceptibilities performed by request only [facility] Organism Bacteroides [place] fragilis Group (A) [facility]OR[facility]ORY Organism Bacteroides species [place] (A) [facility] LABORATORY Specimen Anatomical Collection Method Collection Time Receive d Time (Source) Location / / Volume Laterality Joint sample STRUCTURE OF LEFT 03/10/2020 4:48 PM 02/11 4:48 (specimen) FOOT / Unknown EDT PM EDT Comment: LEFT 4TH RAY, INFECTED BONE CUL TURE # 3 Resulting Agency Comment Spec In Lab Geovanna Lewis MD MICROBIOLOGY - GENERAL ORDER SILAS Performing Organization Address City/[facility]/ZIP Code [place] [address] (ABNORMAL) Joint Culture (03/10/2020 4:48 PM EDT) Component Value Ref Test Analysis Performed At [facility] Range Method Time Signature Joint Culture Few Pasteurella multocida [place] Beta-lactamase result predicts organism is susceptible to ampicillin and [place] penicillin. [facility] Few Streptococcus milleri, anginosis [facility] Rare Enterococcus faecalis LAB ORATORY (A) Gram Stain Many Neutrophils seen [facility] Moderate Gram Positive Cocci seen SECTION Moderate Gram Negative Rods seen [facility] Rare Gram Positive Rods seen [facility] Results called to and read back by DR. [facility] (A) Organism Streptococcus LLOYD milleri, SECTION anginosis group [facility] Organism Enterococcus LLOYD faecalis (A) [facility] Organism Pasteurella LLOYD multocida (A) [facility] Organism Gram Positive LLOYD Cocci (A) [facility] Organism Gram Negative LLOYD Rods (A) [facility] Organism Gram Positive LLOYD Rods (A) [facility] Specimen Anatomical Collection Method Collection Time Receive d Time (Source) Location / / Volume Laterality Joint sample STRUCTURE OF LEFT 03/10/2020 4:48 PM 02/11 4:48 (specimen) FOOT / Unknown EDT PM EDT Comment: LEFT 4TH RAY, INFECTED BONE CUL TURE # 3 Resulting Agency Comment Spec In Lab Organism Antibiotic Method Susceptibility Streptococcus milleri, Ceftriaxone MINIMUM INHIBITORY 0.5: S ensitive anginosis group [facility] Streptococcus milleri, Levofloxacin MINIMUM INHIBITORY 0.125: Sensitive anginosis group [facility] Streptococcus milleri, Penicillin MINIMUM INHIBITORY 0.125: Sensitive anginosis group [facility] Comment: Penicillin susceptible Strep tococci species can be considered susceptible to Ampicillin, Ampicillin-Sulba ctam, Amoxicillin, Amoxicillin-Clavulanate, Ceftriaxone and Meropenem. Enterococcus faecalis Ampicillin MICROSCAN METHOD Sensitive Comment: Susceptibility implies high dose therapy. ??Penicillin or Ampicillin combined with an aminoglycoside is re commended for serious infections. Synergy is predicted for Gentamicin. Enterococcus faecalis Erythromycin MICROSCAN METHOD Intermedi ate Enterococcus faecalis Gentamicin 500 MICROSCAN METHOD Sensitive Comment: Susceptibility implies high dose therapy. ??Penicillin or Ampicillin combined with an aminoglycoside is re commended for serious infections. Synergy is predicted for Gentamicin. Enterococcus faecalis Penicillin MICROSCAN METHOD Sensitive Enterococcus faecalis Vancomycin MICROSCAN METHOD Sensitive Geovanna Lewis MD MICROBIOLOGY - GENERAL ORDER SILAS Performing Organization Address City/[facility]/ZIP [place] [address] (ABNORMAL) Anaerobic Culture (03/10/2020 4:47 PM EDT) [facility] Method Time Signature Anaerobic Few Bacteroides fragilis Group LLOYD Culture Moderate Bacteroides species [facility] Organism Bacteroides LLOYD fragilis Group [facility] Organism Bacteroides LLOYD species (A) [facility] Specimen Anatomical Collection Method Collection Time Receive d Time (Source) Location / / Volume Laterality Joint sample STRUCTURE OF LEFT 03/10/2020 4:47 PM 02/11 4:47 (specimen) FOOT / Unknown EDT PM EDT Comment: LEFT 4TH RAY, INFECTED BONE CUL TURE # 1 Resulting Agency Comment Spec In Lab Geovanna Lewis MD MICROBIOLOGY - GENERAL ORDER SILAS Performing Organization Address City/State/ZIP [place] [address] (ABNORMAL) Joint Culture (03/10/2020 4:47 PM EDT) Component Value Ref Test Analysis Performed At [facility] Be-Bound Range Method Time Signature Joint Rare Pasteurella multocida Beta-lactamase result previousl y reported. [place]D Culture Few Streptococcus milleri, a nginosis group Susceptibilities previously reported SECTION Rare Jesika albicans [facility] Gram Stain Many Neutrophils seen [facility] Moderate Gram Positive Cocci seen SECTION Rare Gram Negative Rods seen M [facility] Results called to and read back by DR. VILLAGOMEZ [facility] () LABORATORY Organism Jesika albicans [facility] (A) [facility] Organism Pasteurella LLOYD multocida (A) [facility] Organism Streptococcus LLOYD milleri, anginosis SECTION group () [facility] Organism Gram Positive Cocci [facility] (A) [facility] Organism Gram Negative Rods [facility] (A) [facility] Specimen Anatomical Collection Method Collection Time Receive d Time (Source) Location / / Volume Laterality Joint sample STRUCTURE OF LEFT 03/10/2020 4:47 PM 02/11 4:47 (specimen) FOOT / Unknown EDT PM EDT Comment: LEFT 4TH RAY, INFECTED BONE CUL TURE # 1 Resulting Agency Comment Spec In Lab Organism Antibiotic Method Susceptibility Jesika albicans Caspofungin VITEK METHOD Sensitive Jesika albicans Fluconazole VITEK METHOD Sensitive Jesika albicans Voriconazole VITEK METHOD Sensitive Geovanna Lewis MD MICROBIOLOGY - GENERAL ORDER SILAS Performing Organization Address City/State/ZIP [place] [address] (ABNORMAL) Differential, Automated (03/10/2020 8:02 AM EDT) [employer] Method Time Signature Neutrophils % 74.1 % [facility] LABORATORY Neutr Abs (ANC) 7.77 (H) 1.70 - [facility] 6.10 [facility] x10(3)/[facility] LABORATORY Lymphocytes % 13.6 % [facility] LABORATORY Lymphocytes Abs 1.4 0.9 - 3.2 [facility] x10(3)/[facility] LABORATORY Monocytes % 8.1 % [facility] LABORATORY Monocyte Abs 0.8 0.3 - 0.9 [facility] x10(3)/[facility] LABORATORY Eosinophils % 2.7 % [facility] LABORATORY Eosinophils Abs 0.3 0.0 - 0.4 [facility] x10(3)/[facility] LABORATORY Basophils % 0.6 % [facility] LABORATORY Basophils Abs 0.1 0.0 - 0.1 [facility] x10(3)/[facility] LABORATORY Immature Gran % 0.90 % [facility] LABORATORY Comment: Immature granulocytes(IG's)percentage an d absolute count will include metamyelocytes, myelocytes, and promyelo cytes. Blood smears from CBCs yielding IG's will be scanned manually for concor dance. If this scan disagrees with the automated IG or if promyelocytes are not ed, a manual differential will be performed. Shannan Gran Abs 0.09 (H) 0.00 - 0.04 x10(3)/[facility] LABORATORY Specimen Anatomical Collection Method Collection Time Receive d Time (Source) Location / / Volume Laterality Blood specimen 03/10/2020 8:02 AM 020 8:07 (specimen) EDT AM EDT Resulting Agency Comment Spec In Lab Chioma Patterson MD HEMATOLOGY ORDERABLES Performing Organization Address City/State/ZIP Code Phon e Number [place] [id number]OS[address] (ABNORMAL) Hemogram (03/10/2020 8:02 AM EDT) Analysis Performed At Patho logist Time Signature WBC 10.5 (H) 4.0 - 9.5 [facility] x10(3)/[facility] LABORATORY RBC 4.51 (L) 4.58 - [facility] 5.54 [facility] x10(6)/[facility] LABORATORY Hemoglobin 13.8 13.7 - [facility] 16.5 gm/dL [facility] LABORATORY Hematocrit 42.4 40.5 - [facility] 48.5 % [facility] LABORATORY MCV 94.0 (H) 82.9 - [facility] 93.1 fL [facility] LABORATORY MCH 30.6 27.5 - [facility] 32.1 pg [facility] LABORATORY MCHC 32.5 32.0 - LLOYD HERNÁNDEZ 35.7 gm/dL [facility] LABORATORY Platelets 331 145 - 357 [facility] x10(3)/[facility] LABORATORY RDWSD 45.6 (H) 36.0 - [facility] 45.0 [facility] LABORATORY RDWCV 13.3 11.4 - [facility] EDGRA 13.8 % [facility] LABORATORY MPV 9.2 7.6 - 12.9 [facility] LABORATORY nRBC % Auto 0.0 % [facility] LABORATORY nRBC Abs Auto 0.000 0.000 - [place] EDGAR 0.000 [facility] x10(3)/[facility] LABORATORY Specimen Anatomical Collection Method Collection Time Receive d Time (Source) Location / / Volume Laterality Blood specimen 03/10/2020 8:02 AM 020 8:07 (specimen) EDT AM EDT Resulting Agency Comment Spec In Lab Chioma Patterson MD HEMATOLOGY ORDERABLES Performing Organization Address City/[facility]/ZIP Code Phon e Number [address] APTT (03/10/2020 8:02 AM EDT) P athologist Signature PTT 34 25 - 37 sec [facility] LABORATORY Comment: The PTT is NOT appropriate for heparin m onitoring. Use the Anti-Xa level for heparin monitoring (HEP UFH) or LMWH mon itoring (HEP LMW). A PTT less than 37 seconds generally indicates adequate hem ostasis. Specimen Anatomical Collection Method Collection Time Receive d Time (Source) Location / / Volume Laterality Blood specimen 03/10/2020 8:02 AM 020 8:07 (specimen) EDT AM EDT Resulting Agency Comment Spec In Lab Robert Grider MD HEMATOLOGY ORDERABLES Performing Organization Address City/State/ZIP Code Phon e Number [address] (ABNORMAL) Prothrombin Time (03/10/2020 8:02 AM EDT) P athologist Signature PT 12.9 (H) 9.4 - 12.5 [facility] LABORATORY INR 1.1 [facility] LABORATORY Comment: An INR <2.0 indicates adequate procoagul ant activity for hemostasis in most patients without underlying bleeding dis orders, though the INR may not adequately reflect hemostatic capacity i n patients with liver disease and synthetic impairment. The recommended ta rget INR range for therapeutic anticoagulation is 2.0 ? 3.0 for most applications, though lower and higher ranges may be appropriate depending on c linical circumstances. Specimen Anatomical Collection Method Collection Time Receive d Time (Source) Location / / Volume Laterality Blood specimen 03/10/2020 8:02 AM 020 8:07 (specimen) EDT AM EDT Resulting Agency Comment Spec In Lab Robert Grider MD HEMATOLOGY ORDERABLES Performing Organization Address City/State/ZIP [place] [address] (ABNORMAL) Basic Metabolic Panel (non-fasting) (03/10/2020 8:02 AM EDT) P athologist Signature Glucose Lvl 112 65 - 199 [facility] mg/dL [facility] LABORATORY Comment: Diabetes: >=200 mg/dL plus symp toms BUN 6 (L) 10 - 20 mg/dL [facility] LABORATORY Creatinine 0.74 (L) 0.80 - 1.50 mg/dL [facility] LABORATORY Sodium 136 135 - 145 mmol/L [facility] LABORATORY Potassium 4.0 3.5 - 5.0 mmol/L [facility] LABORATORY Comment: Please note: ??Patients with WBC >100,00 0 may have falsely elevated Potassium levels. ??For accurate Potassium quantif ication in these patients send serum separator tube (gold top) for subsequent determinations. ??Contact the Clinical Chemistry Laboratory if there are any qu estions. Chloride 99 98 - 107 mmol/L [facility] LABORATORY CO2 27 22 - 31 mmol/L [facility] LABORATORY Anion Gap 10 5 - 15 mmol/L [facility] LABORATORY Calcium 9.8 8.5 - 10.5 mg/dL [facility] LABORATORY Estimated GFR 96 >=60 mL/min/1.73 m?? [facility] LABORATORY Comment: The eGFR was calculated using the CKD-EP I equation. As with all creatinine based estimates of kidney function, eGFR values calculated with the CKD-EPI equation are not accurate in patients wi th acute kidney failure, extremes of body mass or the acutely ill. [email or web address] [email or web address] eGFR 111 >=60 mL/min/1.73 m?? [facility] LABORATORY Comment: The eGFR was calculated using the CKD-EP I equation. As with all creatinine based estimates of kidney function, eGFR values calculated with the CKD-EPI equation are not accurate in patients wi th acute kidney failure, extremes of body mass or the acutely ill. [email or web address] PRYORnkf Specimen Anatomical Collection Method Collection Time Receive d Time (Source) Location / / Volume Laterality Blood specimen 03/10/2020 8:02 AM 8:07 (specimen) EDT AM EDT Resulting Agency Comment Spec In Lab Robert Grider MD CHEMISTRY ORDERABLES Performing Organization Address City/[facility] [place] [address] Blood culture (03/09/2020 8:59 PM EDT) [facility] gist Method Time Signature Blood Culture No growth LLOYD HERNÁNDEZ at 5 days. [facility] Specimen Anatomical Collection Method Collection Time Receive d Time (Source) Location / / Volume Laterality Blood specimen 03/09/2020 8:59 PM 020 9:40 (specimen) EDT PM EDT Resulting Agency Comment Spec In Lab Robert Grider MD MICROBIOLOGY - BLOOD ORDERAB LES Performing Organization Address City/[facility] [place] [address] Blood culture (03/09/2020 8:59 PM EDT) [facility] gist Method Time Signature Blood Culture No growth LLOYD HERNÁNDEZ at 5 days. [facility] LABORATORY Specimen Anatomical Collection Method Collection Time Receive d Time (Source) Location / / Volume Laterality Blood specimen 03/09/2020 8:59 PM 020 9:40 (specimen) EDT PM EDT Resulting Agency Comment Spec In Lab Robert Grider MD MICROBIOLOGY - BLOOD ORDERAB LES Performing Organization Address City/[facility]/ZIP Code Phon e Number [place] [id number]OS[address] LAB[address] EKG 12 Lead (03/09/2020 6:45 PM EDT) Component Value Ref Range Test Analysis Performed Pathologis t Method Time At Signature Ventricular rate 63 BPM MUSE SYSTEM Atrial Rate 63 BPM MUSE SYSTEM P-R Interval 168 ms MUSE SYSTEM QRS Duration 62 ms MUSE SYSTEM Q-T Interval 452 ms MUSE SYSTEM QTC Calculated 462 ms MUSE SYSTEM (Bezet) Calculated P [place] 58 degrees MUSE SYSTEM Calculated R [place] 17 degrees MUSE SYSTEM Calculated T [place] 42 degrees MUSE SYSTEM INTERPRETATION Normal sinus rhythm with sinus arrhythmia MUSE SYSTEM Normal ECG When compared with ECG of 14-NOV-2015 13:04, No significant change was found Confirmed by MD GUSTAVO, JAKOB ([id number]) on 03/09/2020 8:55:1 1 PM Specimen Anatomical Collection Method Collection Time Receive d Time (Source) Location / / Volume Laterality 03/09/2020 6:45 PM 0 8:55 EDT PM EDT Robert Grider MD ECG ORDERABLES Performing Organization Address City/[facility]/ZIP Code Phon e Number MUSE SYSTEM XR Foot Min 3 views Left (Generic) (03/09/2020 4:50 PM EDT) Anatomical Region Laterality Modality Foot Left Digital Radiography Specimen (Source) Anatomical Location Collection Method / Collectio n Time Received Time / Laterality Volume Impressions 03/09/2020 4:55 PM EDT Findings are concerning for osteomyelitis of the head of the fourth metatarsal. Thank you for letting us participate in the care of this patient. For questions regarding this report, please contact pepito number below. ? Narrative 03/09/2020 4:55 PM EDT EXAMINATION: XR FOOT MIN 3 VIEWS LEFT (GENERIC) CLINICAL HISTORY: L foot osteomyelitis. Planning for surgery per ortho TECHNIQUE: AP, oblique and lateral of the left foot . COMPARISON: October 25, 2019 FINDINGS: There has been amputation through the mi dshaft of the fifth metatarsal. Small areas of ossification present within the adjacent soft tissues and are unchanged. There is ulceration of the soft tissues in the lateral aspect of the foot. There is a subtle area of osteolysis in the lateral aspect of the head of the fourth metatarsal. Degenerative arthropathy of the right an kle is noted. Enthesophytes are present at the inserti on of the Achilles tendon and origin of the plantar fascia on the posterior calc aneus. Procedure Note Asa Johnston MD - 03/09/2020 EXAMINATION: XR FOOT MIN 3 VIEWS LEFT (G ENERIC) CLINICAL HISTORY: L foot osteomyelitis. Planning for surgery per ortho TECHNIQUE: AP, oblique and lateral of the left foot . COMPARISON: October 25, 2019 FINDINGS: There has been amputation through the mi dshaft of the fifth metatarsal. Small areas of ossification present within the adjacent soft tissues and are unchanged. There is ulceration of the soft tissues in the lateral aspect of the foot. There is a subtle area of osteolysis in the lateral aspect of the head of the fourth metatarsal. Degenerative arthropathy of the right an kle is noted. Enthesophytes are present at the inserti on of the Achilles tendon and origin of the plantar fascia on the posterior calc aneus. IMPRESSION Findings are concerning for osteomyeliti s of the head of the fourth metatarsal. Thank you for letting us participate in the care of this patient. For questions regarding this report, please contact e number below. Gerhard Bright MD IMG DX ORDERABLES COVID-19 PCR (03/09/2020 4:12 PM EDT) [facility] Method Time Signature SARS-CoV-2 Not Detected Not Detected [place]D RNA PCR [facility] LABORATORY Comment: This result should be interpreted in com bination with the clinical observations, patient history and epidem iological information. For testing of asymptomatic individuals, assay performa nce characteristics and clinical utility have not been evaluated. Testing for SARS-CoV-2 (Severe acute respiratory syndrome coronavirus 2, form erly known as 2019 novel coronavirus or 2019-nCoV) to aid in the diagnosis of CO VID-19 is performed using the Simplexa COVID-19 Direct Assay by [employer] as authorized by the FDA issued Emergency Use Authorization (EUA). This assay is intended for In-vitro Diagnostic (IVD) use with nasopharyngeal swabs collected from individuals meeting the CDC criteria for testing. e assay is performed based on the instructions for use and additional guid ance provided by the FDA. Testing is performed in the Microbiology Laboratory within the Department of Pathology and Laboratory Medicine at [facility], certified under the Clinical Laboratory Improvement Amendmen ts of 1988 (CLIA), 42 U.S.C. section 263a, to perform high complexity tests. Assay performance has been verified according to clinical laboratory regulat ory requirements. Test results are provided above. A resul t of Not Detected indicates that the viral RNA target is not present but does not preclude SARS-CoV-2 infection. False negative results may occur if a sp ecimen is improperly collected, transported or handled; if amplification inhibitors are present; or if inadequate numbers of viral particles ar e present in the specimen. A result of Detected suggests a current or recent infection and the patient is presumed to be infected. Positive and negative pr edictive values for this test are highly dependent on disease prevalence. A result of Invalid indicates the inability to conclusively determine the presence or absence of SARS-CoV-2 RNA in the sample which can be due to a vari ety of factors. Recollection is recommended in the case of an invalid re sult. CDC COVID-19 criteria for testing on hum an specimens and clinical management guidance information are available at th e CDC Coronavirus Disease 2019 (COVID-19) webpage under Information fo r Healthcare Professionals (https://www.cdc.gov/coronavirus/2019-nc ov/hcp/index.html). SARS-CoV-2 Source F[employer] STAFF INTERPRETER Swab [facility] LABORATORY Specimen (Source) Anatomical Collection Method Collection Time Re ceived Time Location / / Volume Laterality Nasopharyngeal swab 03/09/2020 4:12 03/09 (specimen) PM EDT 4:40 PM EDT Comment: Symptoms->Surveillance Resulting Agency Comment Spec In Lab Gerhard Chadwick DO MICROBIOLOGY - GENERAL ORDER SILAS Performing Organization Address City/[facility]/ZIP Code Phon e Number [address] ABORH Recheck Status (03/09/2020 3:50 PM EDT) [facility] Method Time Signature ABORH Type Completed [facility] LABORATORY Specimen Anatomical Collection Method Collection Time Receive d Time (Source) Location / / Volume Laterality Blood specimen 03/09/2020 3:50 PM 020 4:05 (specimen) EDT PM EDT Resulting Agency Comment Spec In Lab Pedrito Coronel MD BLOOD BANK ORDERABLES Performing Organization Address City/[facility]/ZIP [place] [address] Antibody screen (03/09/2020 3:50 PM EDT) [facility] gist Method Time Signature Ab Screen Negative [facility] LABORATORY Expires at 03/12/2020 [facility] [id number] on: [facility] LABORATORY Specimen Anatomical Collection Method Collection Time Receive d Time (Source) Location / / Volume Laterality Blood specimen 03/09/2020 3:50 PM 020 4:05 (specimen) EDT PM EDT Resulting Agency Comment Spec In Lab Pedrito Coronel MD BLOOD BANK ORDERABLES Performing Organization Address City/[facility]/ZIP Code Phon e Number [address] ABO/Rh Typing (03/09/2020 3:50 PM EDT) P athologist Signature ABORh Type A Pos [facility] LABORATORY Specimen Anatomical Collection Method Collection Time Receive d Time (Source) Location / / Volume Laterality Blood specimen 03/09/2020 3:50 PM 020 4:05 (specimen) EDT PM EDT Resulting Agency Comment Spec In Lab Pedrito Coronel MD BLOOD BANK ORDERABLES Performing Organization Address City/State/ZIP Code Phon e Number [address] APTT (03/09/2020 3:50 PM EDT) P athologist Signature PTT 31 25 - 37 sec [facility] LABORATORY Comment: The PTT is NOT appropriate for heparin m onitoring. Use the Anti-Xa level for heparin monitoring (HEP UFH) or LMWH mon itoring (HEP LMW). A PTT less than 37 seconds generally indicates adequate hem ostasis. Specimen Anatomical Collection Method Collection Time Receive d Time (Source) Location / / Volume Laterality Blood specimen 03/09/2020 3:50 PM 020 3:59 (specimen) EDT PM EDT Resulting Agency Comment Spec In Lab Gerhard Chadwick DO HEMATOLOGY ORDERABLES Performing Organization Address [place]/[facility]/ZIP [place] [address] MRI Foot wo Contrast Left (03/09/2020 2:52 PM EDT) Anatomical Region Laterality Modality Foot Left Magnetic Resonance Specimen (Source) Anatomical Location Collection Method / Collectio n Time Received Time / Laterality Volume Impressions 03/09/2020 3:21 PM EDT Severe motion artifact. Plantar ulcer extending to the fourth me tatarsal head with osteomyelitis of the fourth proximal phalanx and the fourth m etatarsal extending to the proximal shaft and also septic arthritis of the f ourth MTP joint that is contiguous with a gas containing fluid collection at its dorsal aspect. Thank you for letting us participate in the care of this patient. For questions regarding this report, please contact e number below. ? Narrative 03/09/2020 3:21 PM EDT EXAMINATION: MRI FOOT WO CONTRAST LEFT CLINICAL HISTORY: eval for osteomyelitis . Foot wound that probes to bone. Pain, erythema, warmth TECHNIQUE: Noncontrast MRI of the left foot was per formed. Patient was unable to hold still despite medication. COMPARISON: MRI of the left foot 12/15/2019 FINDINGS: Severe motion artifact on several sequen rafael. No obvious fracture. The fifth MTP joint is newly dorsally subluxed. There is an ulcer at the plantar aspect of the fourth metatarsal head, extending to the bone. There is bone marrow edema within the fourth proximal phalanx and fourth m etatarsal, extending to the level of the proximal shaft. There is a small fourth MTP joint effusion. There is a 2.0 x 1.5 x 1.0 cm gas-containing fluid collection on the dorsal aspect of the fourth MTP joint, which is in open communication wi th the fourth MTP joint. There is mild loss of T1 bone marrow signal correspond ing to the region of bone marrow edema. Status post amputation of the fifth ray at the fifth metatarsal midshaft. No signal abnormality at the amputation sit e. The other small soft tissue structures of the foot are difficult to evaluate due to motion artifact. The fourth extensor tendons are medially sub luxed. Diffuse soft tissue edema. Procedure Note Gordon Monsivais MD - 03/09/2020Formatting o f this note might be different from the original. EXAMINATION: MRI FOOT WO CONTRAST LEFT CLINICAL HISTORY: eval for osteomyelitis . Foot wound that probes to bone. Pain, erythema, warmth TECHNIQUE: Noncontrast MRI of the left foot was per formed. Patient was unable to hold still despite medication. COMPARISON: MRI of the left foot 12/15/2019 FINDINGS: Severe motion artifact on several sequen rafael. No obvious fracture. The fifth MTP joint is newly dorsally subluxed. There is an ulcer at the plantar aspect of the fourth metatarsal head, extending to the bone. There is bone marrow edema within the fourth proximal phalanx and fourth m etatarsal, extending to the level of the proximal shaft. There is a small fourth MTP joint effusion. There is a 2.0 x 1.5 x 1.0 cm gas-containing fluid collection on the dorsal aspect of the fourth MTP joint, which is in open communication wi th the fourth MTP joint. There is mild loss of T1 bone marrow signal correspond ing to the region of bone marrow edema. Status post amputation of the fifth ray at the fifth metatarsal midshaft. No signal abnormality at the amputation sit e. The other small soft tissue structures of the foot are difficult to evaluate due to motion artifact. The fourth extensor tendons are medially sub luxed. Diffuse soft tissue edema. IMPRESSION Severe motion artifact. Plantar ulcer extending to the fourth me tatarsal head with osteomyelitis of the fourth proximal phalanx and the fourth m etatarsal extending to the proximal shaft and also septic arthritis of the f ourth MTP joint that is contiguous with a gas containing fluid collection at its dorsal aspect. Thank you for letting us participate in the care of this patient. For questions regarding this report, please contact e number below. Gerhard Bright MD IMG MRI ORDERABLES Gold Tube HOLD (03/09/2020 9:15 AM EDT) athologist Signature Gold Hold Sample in [facility]. [facility] Specimen Anatomical Collection Method Collection Time Receive d Time (Source) Location / / Volume Laterality Blood specimen Venous Draw / 03/09/2020 9:15 AM 2019 3:14 (specimen) Unknown EDT PM EDT Pedrito Coronel MD CHEMISTRY ORDERABLES Performing Organization Address City/State/ZIP [place] [address] (ABNORMAL) Differential, Automated (03/09/2020 9:15 AM EDT) [facility] gist Method Time Signature Neutrophils % 71.5 % [facility] Neutr Abs (ANC) 9.83 (H) 1.70 - [facility] 6.10 [facility] x10(3)/[facility] LABORATORY Lymphocytes % 12.7 % [facility] Lymphocytes Abs 1.7 0.9 - 3.2 [facility] x10(3)/[facility] LABORATORY Monocytes % 11.0 % [facility] Monocyte Abs 1.5 (H) 0.3 - 0.9 [facility] x10(3)/[facility] LABORATORY Eosinophils % 3.7 % [facility] Eosinophils Abs 0.5 (H) 0.0 - 0.4 [facility] x10(3)/[facility] LABORATORY Basophils % 0.5 % [facility] Basophils Abs 0.1 0.0 - 0.1 [facility] x10(3)/[facility] LABORATORY Immature Gran % 0.60 % [facility] Comment: Immature granulocytes(IG's)percentage an d absolute count will include metamyelocytes, myelocytes, and promyelo cytes. Blood smears from CBCs yielding IG's will be scanned manually for concor dance. If this scan disagrees with the automated IG or if promyelocytes are not ed, a manual differential will be performed. Shannan Gran Abs 0.08 (H) 0.00 - 0.04 x10(3)/[facility] LABORATORY Specimen Anatomical Collection Method Collection Time Receive d Time (Source) Location / / Volume Laterality Blood specimen 03/09/2020 9:15 AM 020 3:12 (specimen) EDT PM EDT Resulting Agency Comment Spec In Lab Pedrito Coronel MD HEMATOLOGY ORDERABLES Performing Organization Address City/State/ZIP [place] [address] (ABNORMAL) Hemogram (03/09/2020 9:15 AM EDT) Analysis Performed At Patho logist Time Signature WBC 13.7 (H) 4.0 - 9.5 [facility] x10(3)/[facility] LABORATORY RBC 4.31 (L) 4.58 - [facility] 5.54 [facility] x10(6)/[facility] LABORATORY Hemoglobin 13.3 (L) 13.7 - [facility] gm/dL [facility] Hematocrit 41.3 40.5 - [facility] 48.5 % [facility] MCV 95.8 (H) 82.9 - [facility] 93.1 [facility] MCH 30.9 27.5 - [facility] 32.1 pg [facility] MCHC 32.2 32.0 - [facility] 35.7 gm/dL [facility] Platelets 364 (H) 145 - 357 [facility] x10(3)/[facility] LABORATORY RDWSD 48.2 (H) 36.0 - [facility] 45.0 [facility] LABORATORY RDWCV 13.5 11.4 - [facility] 13.8 % [facility] MPV 10.1 7.6 - 12.9 [facility] LABORATORY nRBC % Auto 0.0 % [facility] nRBC Abs Auto 0.000 0.000 - [facility] 0.000 [facility] x10(3)/[facility] LABORATORY Specimen Anatomical Collection Method Collection Time Receive d Time (Source) Location / / Volume Laterality Blood specimen 03/09/2020 9:15 AM 020 3:12 (specimen) EDT PM EDT Resulting Agency Comment Spec In Lab Pedrito Coronel MD HEMATOLOGY ORDERABLES Performing Organization Address City/State/ZIP [place] [address] (ABNORMAL) Prothrombin Time (03/09/2020 9:15 AM EDT) P athologist Signature PT 12.9 (H) 9.4 - 12.5 [facility] LABORATORY INR 1.1 [facility] Comment: An INR <2.0 indicates adequate procoagul ant activity for hemostasis in most patients without underlying bleeding dis orders, though the INR may not adequately reflect hemostatic capacity i n patients with liver disease and synthetic impairment. The recommended ta rget INR range for therapeutic anticoagulation is 2.0 ? 3.0 for most applications, though lower and higher ranges may be appropriate depending on c linical circumstances. Specimen Anatomical Collection Method Collection Time Receive d Time (Source) Location / / Volume Laterality Blood specimen 03/09/2020 9:15 AM 020 3:12 (specimen) EDT PM EDT Resulting Agency Comment Spec In Lab Carlos Bourne MD HEMATOLOGY ORDERABLES Performing Organization Address City/State/Z[place] [address] Hemoglobin A1c (03/09/2020 9:15 AM EDT) athologist Signature Hemoglobin A1C 5.6 4.3 - 5.6 [facility] Comment: Reference Range: 4.3 - 5.6% 5.7 - 6.4% - Increased Risk of Developin g Diabetes Mellitus >= 6.5% - Consistent with diagnosis of D iabetes Mellitus In the absence of hyperglycemia (i.e. pl asma glucose > 200 mg/dL) or classic symptoms of hyperglycemia a repeat measu rement of HbA1c should be performed on a separate sample to confirm the diagnos is. Diagnosis and Classification of Diabetes Mellitus, Diabetes Care 2013; 36: Suppl. 1, S67-25 Est Avg Gluc 113 mg/dL [facility] Comment: eAG equivalents for HbA1c percentages: HbA1c(%) ?eAG(mg/dL) 6.0 ?126 6.5 ?140 7.0 ?154 7.5 ?169 8.0 ?183 8.5 ?197 9.0 ?212 9.5 ?226 10.0 ? 240 Limitations: The eAG calculation has not been validated on women, individuals below 18 years old and above 70 years old, and individuals with hemoglobinopathies. Additional resources are available on [facility] ADA website. David ARORA, Vidal J, Rony R, et al. ??Tr anslating the A1C assay into estimated average glucose values. ??Diabetes Care 2008:31(8):3413-5158. Specimen Anatomical Collection Method Collection Time Receive d Time (Source) Location / / Volume Laterality Blood specimen 03/09/2020 9:15 AM 020 3:12 (specimen) EDT PM EDT Resulting Agency Comment Spec In Lab Carlos Bourne MD CHEMISTRY ORDERABLES Performing Organization Address City/[facility]/ZIP Code Phon e Number [address] (ABNORMAL) CRP, acute inflammation (03/09/2020 9:15 AM EDT) athologist Signature CRP 102.6 (H) <=4.9 mg/L [facility] Specimen Anatomical Collection Method Collection Time Receive d Time (Source) Location / / Volume Laterality Blood specimen 03/09/2020 9:15 AM 020 3:12 (specimen) EDT PM EDT Resulting Agency Comment Spec In Lab Carlos Bourne MD CHEMISTRY ORDERABLES Performing Organization Address [place]/[facility] [place] [address] (ABNORMAL) Sedimentation rate (03/09/2020 9:15 AM EDT) athologist Signature Sed Rate 106 (H) 2 - 37 [facility] mm/hr [facility] Comment: Effective April 21, 2019 new capillar y photometric technology has resulted in a change in reference ranges. It is r ecommended that each ESR result be reviewed with its own age appropriate re ference range. Specimen Anatomical Collection Method Collection Time Receive d Time (Source) Location / / Volume Laterality Blood specimen 03/09/2020 9:15 AM 020 3:12 (specimen) EDT PM EDT Resulting Agency Comment Spec In Lab Carlos Bourne MD HEMATOLOGY ORDERABLES Performing Organization Address City/[facility] Phon e Number [address] (ABNORMAL) Basic Metabolic Panel (non-fasting) (03/09/2020 9:15 AM EDT) athologist Signature Glucose Lvl Not Perf 65 - 199 [facility] Comment: Sample improperly processed prior to rec eipt. Called by: gracia , Read back by: leda brown , Date/Time:03/09/20 15:56. Diabetes: >=200 mg/dL plus symptoms BUN 7 (L) 10 - 20 mg/dL [facility] Creatinine 0.94 0.80 - 1.50 mg/dL [facility] Sodium 133 (L) 135 - 145 mmol/L [facility] Potassium Not Perf 3.5 - 5.0 [facility] Comment: Sample improperly processed prior to rec eipt. Called by: gracia , Read back by: leda brown , Date/Time:03/09/20 15:56. Please note: ??Patients with WBC >100,00 0 may have falsely elevated Potassium levels. ??For accurate Potassium quantif ication in these patients send serum separator tube (gold top) for subsequent determinations. ??Contact the Clinical Chemistry Laboratory if there are any qu estions. Chloride 93 (L) 98 - 107 mmol/L [facility] CO2 27 22 - 31 mmol/L [facility] Anion Gap 13 5 - 15 mmol/L [facility] Calcium 10.0 8.5 - 10.5 mg/dL [facility] Estimated GFR 84 >=60 mL/min/1.73 m?? [facility] Comment: The eGFR was calculated using the CKD-EP I equation. As with all creatinine based estimates of kidney function, eGFR values calculated with the CKD-EPI equation are not accurate in patients wi th acute kidney failure, extremes of body mass or the acutely ill. [email or web address]/[facility] eGFR 98 >=60 mL/min/1.73 m?? [facility] Comment: The eGFR was calculated using the CKD-EP I equation. As with all creatinine based estimates of kidney function, eGFR values calculated with the CKD-EPI equation are not accurate in patients wi th acute kidney failure, extremes of body mass or the acutely ill. [email or web address]/[facility] Specimen Anatomical Collection Method Collection Time Receive d Time (Source) Location / / Volume Laterality Blood specimen 03/09/2020 9:15 AM 020 3:12 (specimen) EDT PM EDT Resulting Agency Comment Spec In Lab Carlos Bourne MD CHEMISTRY ORDERABLES Performing Organization Address City/State/ZIP [place] [address] Duplex for DVT, Leg, Unilat (03/09/2020 9:09 AM EDT) Component Value Ref Test Analysis Performed At [facility] Range Method Time Signature VB Text Department: Vascular Surgery Lab VASCU[facility] Report Patient: [id number] (SOLEDAD RAMOS) CPT: 30440 ICD10: M79.89 Referring Physician: GERHARD BRIGHT ?? Phone: Indications: L swollen foot and calf in the setting of cellu litis and foot wound, ? DVT ICD10 Diagnosis Code: M79.89 Findings: LEFT: Patent common femoral vein and popliteal vein with spo ntaneous, respirophasic Doppler wavefo sukhjinder that respond normally to augmentation maneuvers. The common femoral vein, sap henofemoral junction, femoral vein through the thigh and popliteal vein are fully compressible. Patent posterior tibial and peroneal veins with no evidence of thrombus. Interpretation: LEFT: ??No evidence of lower extremity deep venous thrombosi s. Comparison: ??No previous study in our vascular lab da tabase for comparison. 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 classified elsewhere and of unspecified site Infection due to species of Streptococcu s milleri group 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 Maximum daily dose of acetaminophen from all sources not to exceed 4,000 mg. When ordered for pain, acetaminophen should be given even when other ordered pain medications are indicated., Routine Given 03/13/2020 5:34 AM EST 650 mg Given 03/12/2020 12:48 PM EST 650 mg busPIRone (Buspar) tablet 15 mg Given 03/14/2020 8:23 AM EST 15 mg 15 mg, Oral, 2 TIMES DAILY, First dose on Fri03/10/20 at 0030, Until Discontinued, Routine Given 03/13/2020 8:05 PM EST 15 mg Given 03/13/2020 8:19 AM EST 15 mg calcium carbonate (Tums) chewable tablet 500 Given 3:30 AM EDT 500 mg mg 500 mg, Oral, 3 TIMES DAILY PRN, Starting on Fri03/10/20 at 0314, Until Fri03/14/20 at 1658, Heartburn, Routine ceFAZolin (Ancef) 2 g in dextrose 5% 100 Given 03/10/2020 6: 38 PM EDT 2 g 200 mL/hr mL infusion 2 g, Intravenous, EVERY 8 HOURS, First dose on Fri03/10/20 at 1815, Until Discontinued, Administer over 30 Minutes, Indication for (Active or Suspected): Bone/Joint ceFAZolin (Ancef) 2 g in dextrose 5% 100 Given 03/11/2020 1: 23 PM EDT 2 g 200 mL/hr mL infusion 2 g, Intravenous, EVERY 8 HOURS, 3 doses, First dose (after last reorder) on Fri03/10/20 at 2145, Last dose on Fri03/11/20 at 1345, Administer over 30 Minutes, Indication for (Active or Suspected): Prophylaxis Given 03/11/2020 6:25 AM EDT 2 g 200 mL/hr ceFAZolin (Ancef) 2 g in dextrose 5% Given 03/13/2020 11:40 AM EST 2 g 200 mL/hr 100 mL infusion 2 g, Intravenous, EVERY 8 HOURS, First dose on Fri03/13/20 at 1130, Until Discontinued, Administer over 30 Minutes, Indication for (Active or Suspected): Bone/Joint cefTRIAXone (ROCEPHIN) 2 g vial attach New Bag 03/13/2020 4:11 PM EST 2 g 100 mL/hr to sodium chloride 0.9% 50 mL Mini-Bag Plus 2 g, Intravenous, EVERY 24 HOURS, First dose (after last modification) on Fri03/13/20 at 1700, Until Discontinued, Administer over 30 Minutes, Indication for (Active or Suspected): Bone/Joint cefTRIAXone (ROCEPHIN) 2 g vial attach Restarted 03/14/2020 2:28 PM EST 100 mL/hr to sodium chloride 0.9% 50 mL Mini-Bag Plus 2 g, Intravenous, EVERY 24 HOURS, First dose (after last modification) on Fri03/14/20 at 1215, Until Discontinued, Administer over 30 Minutes, Indication for (Active or Suspected): Bone/Joint New Bag 03/14/2020 11:57 AM EST 2 g 100 mL/hr diazePAM (Valium) 5 mg tablet 1 dose, Starting on Fri03/09/20 at 1436 , Until Christina 03/09/20 at 1437, LEDA BROWN: cabinet override diazePAM (Valium) tablet 5 mg Given 03/09/2020 2:37 PM EDT 5 mg 5 mg, Oral, ONCE, 1 dose, On Christina 03/09/20 at 1433, STAT enoxaparin (LOVENOX) injection 40 mg Given 03/13/2020 4:12 PM EST 40 mg 40 mg, Subcutaneous, EVERY EVENING, First dose on Fri03/10/20 at 1700, Until Discontinued, Routine Given 03/12/2020 4:29 PM EST 40 mg Given 03/11/2020 4:34 PM EDT 40 mg fentaNYL (PF) 50 mcg/mL injection Given 03/10/2020 3:42 PM EDT 50 mcg 50 mcg, Intravenous, EVERY 5 MIN PRN, Starting on Fri03/10/20 at 1533, Until Fri03/10/20 at 1605, Pain, or prior to injection of local anesthetic., Hold for respiratory rate less than 8 breaths per minute. (maximum dose 200 mcg), Day of Surgery (Day of Procedure), Routine gabapentin (Neurontin) capsule 600 mg Given 03/14/2020 2:52 PM EST 600 mg 600 mg, Oral, 3 TIMES DAILY, First dose (after last modification) on Fri03/10/20 at 0900, Until Discontinued, Routine Given 03/14/2020 8:22 AM EST 600 mg Given 03/13/2020 8:06 PM EST 600 mg HYDROmorphone (DILAUDID) injection 0.2 m g Given 03/11/2020 5:28 PM EDT 0.2 mg 0.2 mg, Intravenous, EVERY 4 HOURS PRN, Starting on 03/11/20 at 1427, Until 03/14/20 at 1658, Pain, mild pain (1-3), May give an additional 0.2 mg in 30 minutes once if pain not relieved., Routine HYDROmorphone (DILAUDID) injection 0.4 m g Given 03/12/2020 9:25 PM EST 0.4 mg 0.4 mg, Intravenous, EVERY 4 HOURS PRN, Starting on 03/11/20 at 1427, Until 03/14/20 at 1658, Pain, moderate pain (4-6), May give an additional 0.2 mg in 30 minutes once if pain not relieved., Routine HYDROmorphone (DILAUDID) injection 0.4-0.6 Given 03/11/2020 11:53 AM EDT 0.4 mg mg 0.4-0.6 mg, Intravenous, EVERY 5 MIN PRN, Starting on 03/10/20 at 1646, Until 03/11/20 at 1427, Pain, Give 0.4 mg every 5 minutes PRN for mild to moderate pain (1-5) Give 0.6 mg every 5 minutes PRN for moderate to severe pain (6-10). Hold for respiratory rate less than 10 per minute. Maximum dose 4 mg over one hour. If multiple pain medications are ordered, start with hydromorphone or morphine and use fentanyl for breakthrough pain., Routine HYDROmorphone (DILAUDID) injection 0.6 m g Given 03/11/2020 4:34 PM EDT 0.6 mg 0.6 mg, Intravenous, EVERY 4 HOURS PRN, Starting on 03/11/20 at 1427, Until Fri03/14/20 at 1658, Pain, severe pain (7-10), May give an additional 0.2 mg in 30 minutes once if pain not relieved., Routine lactated ringers infusion New Bag 03/09/2020 9:31 PM EDT 125 mL/hr 125 mL/hr 125 mL/hr, Intravenous, CONTINUOUS, Starting on Christina 03/09/20 at 1832, Until Fri03/10/20 at 0631 lidocaine ((GLYDO)) 2 % gel 11 mL Given 03/11/2020 2:18 AM EDT 11 mLs 11 mL, INTRA-URETHRAL, ONCE, 1 dose, On 03/11/20 at 0300, Routine lisinopriL (Prinivil;Zestril) tablet 20 mg Given 03/13/2020 8:21 AM EST 20 mg 20 mg, Oral, DAILY, First dose on Fri03/10/20 at 1045, Until Discontinued, Routine Given 03/12/2020 8:21 AM EST 20 mg Given 03/11/2020 10:39 AM EDT 20 mg lisinopriL (Prinivil;Zestril) tablet 20 mg Given 03/13/2020 11:40 AM EST 20 mg 20 mg, Oral, ONCE, 1 dose, On 03/13/20 at 1115, Routine lisinopriL (Prinivil;Zestril) tablet 40 mg Given 03/14/2020 8:22 AM EST 40 mg 40 mg, Oral, DAILY, First dose (after last modification) on Fri03/14/20 at 0900, Until Discontinued, Routine LORazepam (ATIVAN) 2 mg/mL injection 1 dose, Starting on Christina 03/09/20 at 1436 , Until Christina 03/09/20 at 1437, LEDA BROWN: darleneinet override LORazepam (ATIVAN) injection 0.5 mg Given 03/09/2020 2:37 PM EDT 0.5 mg 0.5 mg, Intravenous, ONCE, 1 dose, On Christina 10/29/20 at 1433, Routine melatonin tablet 3 mg Given 03/09/2020 9:26 PM EDT 3 mg 3 mg, Oral, NIGHTLY PRN, Starting on Fri03/09/20 at 1830, Until Fri03/14/20 at 1658, Sleep, Routine methadone (Dolophine) (10 mg/mL) oral liquid Given 0 8:24 AM EST 82 mg 82 mg 82 mg, Oral, DAILY, First dose on Fri03/10/20 at 0915, Until Discontinued, Liquid methadone should be used to avoid diversion, and a mouth check should be performed after each dose., Routine Given 03/13/2020 8:20 AM EST 82 mg Given 03/12/2020 8:20 AM EST 82 mg metoclopramide (Reglan) tablet 10 mg 10 mg, Oral, 3 TIMES DAILY PRN, Starting on Fri03/10/20 at 0951, Until Fri03/14/20 at 1658, Nausea, Routine metoprolol succinate XL (Toprol-XL) tablet 75 Given 12:30 PM EST 75 mg mg 75 mg, Oral, ONCE, 1 dose, On Fri03/14/20 at 1245, DO NOT CRUSH OR OPEN, Routine metoprolol tartrate (Lopressor) tablet 2 5 mg Given 03/14/2020 6:18 AM EST 25 mg 25 mg, Oral, EVERY 6 HOURS SCHEDULED, First dose on Fri03/10/20 at 0000, Until Discontinued, Routine Given 03/13/2020 11:41 PM EST 25 mg Given 03/13/2020 6:20 PM EST 25 mg metroNIDAZOLE (Flagyl) 500 mg in New Bag 03/11/2020 10:15 AM E DT 500 mg 200 mL/hr sodium chloride 0.9% 100 mL infusion 500 mg, Intravenous, EVERY 8 HOURS, First dose on Fri03/10/20 at 1815, Until Discontinued, Administer over 30 Minutes, 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 (Maximum dose 5 mg)., Day of Surgery (Day of Procedure), Routine nicotine (NICODERM CQ) Patch Applied 03/14/2020 8:26 AM 21 mg 04- Shoulder 21 mg/24 hr patch 21 mg EST (Right) 21 mg (1 patch), Transdermal, DAILY, First dose on Christina 03/09/20 at 1900, Until Discontinued, Apply new patch to nonhairy, clean, dry skin on the upper body or upper outer arm; each patch should be applied to a different site , Routine Patch Applied 03/13/2020 8:18 AM EST 21 mg 03- Shoulder (Left) Patch Applied 03/12/2020 8:21 AM EST 21 mg 10- Arm Upper (Right) nicotine (NICODERM CQ) 21 mg/24 hr patch Patch Removal Transdermal, DAILY, First dose on Fri at 0900, Until Discontinued, Remove nicotine 21 mg/24 hr patch nicotine (NICODERM CQ) 21 mg/24 hr patch Patch Verification Transdermal, 2 TIMES DAILY, First dose o n Fri03/10/20 at 0900, Until Discontinued, Verify nicotine 21 mg/24 hr patch ondansetron (ZOFRAN) injection 4 mg Given 03/10/2020 8:53 AM EDT 4 mg 4 mg, Intravenous, ONCE, 1 dose, On Fri03/10/20 at 0930, STAT pantoprazole EC (Protonix) tablet 40 mg Given 03/14/2020 8:22 AM EST 40 mg 40 mg, Oral, 2 TIMES DAILY, First dose on Fri03/10/20 at 0030, Until Discontinued, DO NOT CRUSH OR OPEN, Routine Given 03/13/2020 8:05 PM EST 40 mg Given 03/13/2020 8:21 AM EST 40 mg QUEtiapine (SEROquel) tablet 25 mg 25 mg, Oral, NIGHTLY PRN, Starting on Th u 03/09/20 at 2337, Until 03/14/20 at 1658, Agitation, Routine sodium chloride 0.9 % (flush) flush 5 mL Given 03/14/2020 8:27 AM EST 5 mLs 5 mL, Intravenous, 2 TIMES DAILY, First dose on Christina 03/09/20 at 2100, Until Discontinued, Routine Given 03/13/2020 8:06 PM EST 5 mLs Given 03/13/2020 8:24 AM EST 5 mLs thiamine (Vitamin B1) tablet 100 mg Given 03/14/2020 8:22 AM EST 100 mg 100 mg, Oral, DAILY, First dose on Christina 03/09/20 at 1900, Until Discontinued, Routine Given 03/13/2020 8:21 AM EST 100 mg Given 03/12/2020 8:22 AM EST 100 mg documented in this encounter Active and Recently Administered Medications Due to Daylight Saving Time, this section may contain times in both EDT and EST. Scheduled Medication Order 03/12/2020 03/13/2020 03/14/2020 busPIRone (Buspar) tablet 15 mg 0821 (Given - Provider : Krystyna Alan RN)2123 (Given - Provider: Anusha Matias RN) 0819 (Given - Provider: Meli Armstrong RN)2004 (Given - Provider: Anusha Matias RN) 0823 (Given - Provider: Shelley Mathis RN) 15 mg, Oral, 2 TIMES DAILY, First dose o n 03/10/20 at 0030, Until Discontinued, Routine ceFAZolin (Ancef) 2 g in dextrose 5% 100 mL infusion (CANCEL ED) 1140 (Given - Provider: Meli Armstrong RN) 2 g, Intravenous, EVERY 8 HOURS, First d ose on 03/13/20 at 1130, Until Discontinued, Administer over 30 Minutes, Indication for (Active or Suspected): Bone/Joint cefTRIAXone (ROCEPHIN) 2 g vial attach t o sodium chloride 0.9% 50 mL Mini-Bag Plus (CANCELED) 1611 (New Bag - Provider: Dawna Irvin RN)1701 (Stopped - Provider: Meli Armstrong RN) 2 g, Intravenous, EVERY 24 HOURS, First dose (after last modification) on Fri03/13/20 at 1700, Until Discontinued, Administer over 30 Minutes, Indication for (Active or Suspected): Bone/Joint cefTRIAXone (ROCEPHIN) 2 g vial attach t o sodium chloride 0.9% 50 mL Mini-Bag Plus 1157 (New Bag - Prov ider: Tequila Hendrickson RN)1231 (Paused - Provider: Tequila Hendrickson RN - Comment: Loss of access)1428 (Restarted - Provider: Tequila Hendrickson RN)1450 (Stopped - Provider: Tequila Hendrickson RN) 2 g, Intravenous, EVERY 24 HOURS, First dose (after last modification) on Fri03/14/20 at 1215, Until Discontinued, Administer over 30 Minutes, Indication for (Active or Suspected): Bone/Joint enoxaparin (LOVENOX) injection 40 mg 1629 (Given - Pro vider: Krystyna Alan RN) 1612 (Given - Provider: Angelica Irvin RN) 40 mg, Subcutaneous, EVERY EVENING, Firs t dose on Fri03/10/20 at 1700, Until Discontinued, Routine gabapentin (Neurontin) capsule 600 mg 0821 (Given - Pr ovider: Krystyna Alan RN)1628 (Given - Provider: Krystyna Alan RN)2124 (Given - Provider: Anusha Matias RN) 0821 (Given - Provider: Meli Armstrong RN)1528 (Given - Provider: Meli Armstrong RN)2005 (Given - Provider: Anusha Matias RN) 0822 (Given - Provider: Shelley goldberg RN)1452 (Given - Provider: Tequila Hendirckson RN) 600 mg, Oral, 3 TIMES DAILY, First dose (after last modification) on Fri03/10/20 at 0900, Until Discontinued, Routine lisinopriL (Prinivil;Zestril) tablet 20 mg (CANCELED) 0821 (Given - Provider: Krystyna Alan RN) 0821 (Given - Provider: Meli Armstrong RN) 20 mg, Oral, DAILY, First dose on Fri at 1045, Until Discontinued, Routine lisinopriL (Prinivil;Zestril) tablet 20 mg (COMPLETED) 1140 (Given - Provider: Meli Armstrong RN) 20 mg, Oral, ONCE, 1 dose, Fri03/13/20 at 1115, Routine lisinopriL (Prinivil;Zestril) tablet 40 mg 0822 (Given - Provider: Shelley Mathis, VINCENT) 40 mg, Oral, DAILY, First dose (after la st modification) on Fri03/14/20 at 0900, Until Discontinued, Routine methadone (Dolophine) (10 mg/mL) oral liquid 82 mg 082 0 (Given - Provider: Arianna Alan RN) 0820 (Given - Provider: Meli Armstrong RN) 0824 (Give n - Provider: Shelley Mathis RN) 82 mg, Oral, DAILY, First dose on Fri at 0915, Until Discontinued, Liquid methadone should be used to avoid diversion, and a mouth check should be performed after each dose., Routine metoprolol succinate XL (Toprol-XL) tablet 75 mg (COMPLETED) 1230 (Given - Provider: Tequila Hendrickson RN) 75 mg, Oral, ONCE, 1 dose, Fri03/14/20 a t 1245, DO NOT CRUSH OR OPEN, Routine metoprolol tartrate (Lopressor) tablet 25 mg (CANCELED ) 0558 (Given - Provider: Hodan Felix RN)1248 (Given - Provider: Krystyna Alan RN)1847 (Given - Provider: Krystyna Alan, VINCENT)2321 (Given - Provider: Anusha Matias, VINCENT) 0535 (Given - Provider: Anusha gagnon RN)1339 (Given - Provider: Meli Armstrong, VINCENT)1820 (Given - Provider: Meli Armstrong, VINCENT)2341 (Given - Provider: Anusha Matias, VINCENT) 0618 (Given - Provider: Anusha Matias, VINCENT) 25 mg, Oral, EVERY 6 HOURS SCHEDULED, Fi rst dose on Fri03/10/20 at 0000, Until Discontinued, Routine metroNIDAZOLE (Flagyl) tablet 500 mg 0821 (Given - Pro vider: Krystyna Alan RN)1628 (Given - Provider: Krystyna Alan RN)2124 (Given - Provider: Anusha Matias, VINCENT) 0821 (Given - Provider: Meli Armstrong RN)1528 (Given - Provider: Meli Armstrong RN)2005 (Given - Provider: Anusha Matias RN) 0823 (Given - Provider: Shelley goldberg RN)1452 (Given - Provider: Tequila Hendrickson RN) 500 mg, Oral, 3 TIMES DAILY, First dose on Fri03/11/20 at 1500, Until Discontinued, Routine nicotine (NICODERM CQ) 21 mg/24 hr patch 21 mg(Linked Group 1) 0821 (Patch Applied - Provider: Krystyna Alan RN) 0818 (Patch Applied - Provider: Meli Armstrong RN) 0826 (Patch Applied - Provider: Shelley Mathis RN) 21 mg (1 patch), Transdermal, DAILY, Fir st dose on Fri03/09/20 at 1900, Until Discontinued, Apply new patch to nonhairy, clean, dry skin on the upper body or upper outer arm; each patch should be applied to a different site , Routine nicotine (NICODERM CQ) 21 mg/24 hr patch Patch Removal (Linked Group 1) 09 (Patch Removed - Provider: Krystyna Alan RN) 09 (Patch Removed - Provider: Meli Armstrong RN) 08 (Patch Removed - Provider: Shelley Mathis RN) Transdermal, DAILY, First dose on Fri at 0900, Until Discontinued, Remove nicotine 21 mg/24 hr patch nicotine (NICODERM CQ) 21 mg/24 hr patch Patch Verific ation(Linked Group 1) 09 (Patch (dose and location) verified - Provider: Krystyna Alan RN)2125 (Patch (dose and location) verified - Provider: Anusha Matias RN) 899 (Patch (dose and location) verified - Provider: Meli Armstrong RN)2005 (Patch (dose and location) verified - Provider: Anusha Matias RN) 825 (Patch (dose and location) verified - Provider: Shelley Mathis RN) Transdermal, 2 TIMES DAILY, First dose o n Fri03/10/20 at 0900, Until Discontinued, Verify nicotine 21 mg/24 hr patch pantoprazole EC (Protonix) tablet 40 mg 821 (Given - Provider: Krystyna Alan RN)2123 (Given - Provider: Anusha Matias RN) 820 (Given - Provider: Meli Armstrong RN)2004 (Given - Provider: Anusha Matias, VINCENT) 821 (Given - Provider: Shelley Mathis RN) 40 mg, Oral, 2 TIMES DAILY, First dose o n Fri03/10/20 at 0030, Until Discontinued, DO NOT CRUSH OR OPEN, Routine sodium chloride 0.9 % (flush) flush 5 mL 821 (Given - Provider: Krystyna Alan RN)2125 (Given - Provider: Anusha Matias RN) 823 (Given - Provider: Meli Armstrong RN)2005 (Given - Provider: Anusha Matias, VINCENT) 826 (Given - Provider: Shelley Mathis, VINCENT) 5 mL, Intravenous, 2 TIMES DAILY, First dose on Christina 03/09/20 at 2100, Until Discontinued, Routine thiamine (Vitamin B1) tablet 100 mg 08 (Given - Prov ider: Krystyna Alan RN) 820 (Given - Provider: Meli Armstrong RN) 821 (Give n - Provider: Shelley Mathis RN) 100 mg, Oral, DAILY, First dose on Christina 1 at 1900, Until Discontinued, Routine PRN Medication Order 03/12/2020 03/13/2020 03/14/2020 acetaminophen (Tylenol) tablet 650 mg 0600 (Given - Pr ovider: Hodan Felix RN)1248 (Given - Provider: Krystyna Alan RN) 533 (Given - Provider: Anusha Matias RN)2004 (Given - Provider: Anusha Matias RN) 650 mg, Oral, EVERY 6 HOURS PRN, Startin g Christina 03/09/20 at 1830, Until 03/14/20 at 1658, Pain, Fever, Administer for temperature greater than or equal to 38.2 degrees celsius. Maximum daily dose of ac etaminophen from all sources not to exce ed 4,000 mg. When ordered for pain, acetaminophen should be given even when other ordered pain medications are indicated., Routine calcium carbonate (Tums) chewable tablet 500 mg 500 mg, Oral, 3 TIMES DAILY PRN, Startin g 03/10/20 at 0314, Until Tu03/14/20 at 1658, Heartburn, Routine HYDROmorphone (DILAUDID) injection 0.2 mg(Linked Group 2) 2124 (See Alternative - Provider: Anusha Matias RN) 0.2 mg, Intravenous, EVERY 4 HOURS PRN, Starting 03/11/20 at 1427, Until 03/14/20 at 1658, Pain, mild pain (1-3), May give an additional 0.2 mg in 30 minutes once if pain not relieved., Routine HYDROmorphone (DILAUDID) injection 0.4 mg(Linked Group 2) 2124 (Given - Provider: Anusha Matias RN) 0.4 mg, Intravenous, EVERY 4 HOURS PRN, Starting 03/11/20 at 1427, Until 03/14/20 at 1658, Pain, moderate pain (4-6), May give an additional 0.2 mg in 30 minutes once if pain not relieved., Routine HYDROmorphone (DILAUDID) injection 0.6 mg(Linked Group 2) 2124 (See Alternative - Provider: Anusha Matias RN) 0.6 mg, Intravenous, EVERY 4 HOURS PRN, Starting 03/11/20 at 1427, Until 03/14/20 at 1658, Pain, severe pain (7-10), May give an additional 0.2 mg in 30 minutes once if pain not relieved., Routine lidocaine (XYLOCAINE) 10 mg/mL (1 %) injection 3 mg 3 mg (0.3 mL), Subcutaneous, ONCE PRN, 1 dose, Starting Christina 03/09/20 at 1830, Until Tue /3/20 at 1658, for discomfort with PIV insertion, Routine melatonin tablet 3 mg 3 mg, Oral, NIGHTLY PRN, Starting Christina at 1830, Until Fri03/14/20 at 1658, Sleep, Routine metoclopramide (Reglan) tablet 10 mg 10 mg, Oral, 3 TIMES DAILY PRN, Starting Fri03/10/20 at 0951, Until Fri03/14/20 at 1658, Nausea, Routine QUEtiapine (SEROquel) tablet 25 mg 25 mg, Oral, NIGHTLY PRN, Starting Christina 1 at 2337, Until Fri03/14/20 at 1658, Agitation, Routine sodium chloride 0.9 % (flush) flush 5-20 mL 5-20 mL, Intravenous, EVERY 1 MIN PRN, S tarting Christina 03/09/20 at 1830, Until Fri03/14/20 at 1658, flush, Flush pertains to all indwelling lines. Flush per protocol found in the job aid using the link provided on this medication record., Routine Linked Groups Order Group 1: nicotine (NICODERM CQ) 21 mg/24 hr patch 21 mgJump to med 21 mg (1 patch), Transdermal, DAILY, Fir st dose on Fri03/09/20 at 1900, Until Discontinued
Apply new patch to nonhairy, clean, dry skin on the upper body or upper outer arm; each patch should be applied to a different site
Routine And nicotine (NICODERM CQ) 21 mg/24 hr patch Patch VerificationJump to med Transdermal, 2 TIMES DAILY, First dose o n Fri03/10/20 at 0900, Until Discontinued
Verify nicotine 21 mg/24 hr patch
And nicotine (NICODERM CQ) 21 mg/24 hr patch Patch RemovalJump to med Transdermal, DAILY, First dose on Fri at 0900, Until Discontinued
Remove nicotine 21 mg/24 hr patch
Group 2: HYDROmorphone (DILAUDID) injection 0.2 mgJump to med 0.2 mg, Intravenous, EVERY 4 HOURS PRN, Starting 03/11/20 at 1427, Until Fri03/14/20 at 1658, Pain, mild pain (1-3)
May give an additional 0.2 mg in 30 minutes once if pain not relieved.
Routine Or HYDROmorphone (DILAUDID) injection 0.4 mgJump to med 0.4 mg, Intravenous, EVERY 4 HOURS PRN, Starting 03/11/20 at 1427, Until 03/14/20 at 1658, Pain, moderate pain (4-6)
May give an additional 0.2 mg in 30 minutes once if pain not relieved.
Routine Or HYDROmorphone (DILAUDID) injection 0.6 mgJump to med 0.6 mg, Intravenous, EVERY 4 HOURS PRN, Starting 03/11/20 at 1427, Until 03/14/20 at 1658, Pain, severe pain (7-10)
May give an additional 0.2 mg in 30 minutes once if pain not relieved.
Routine documented in this encounter Care Teams Tester Operator Helper Relationship Specialty Start Date End Date Janusz Tran APRN PCP - General Internal Medicine 04/07/[address] [place] [id number] documented as of this encounter
--- OUTSIDE RECORDS SUMMARY | 2021-11-30 08:20 | XMS_ITS | Encounter Summary ---
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 Note: Formatting of this note might be d ifferent from the original. 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
--- OUTSIDE RECORDS SUMMARY | 2021-11-30 08:20 | XMS_ITS | Encounter Summary ---
:1955 Author Organization [facility] [place] [address] Care Team Providers Name Role Phone Janusz Tran APRN Primary Care Provider Reason for Visit Auth/Cert Specialty Diagnoses / Procedures Referred By Contact Refer red To Contact Diagnoses Osteomyelitis Leg swelling Procedures EMERGENCY IPI Referral ID Status Reason Start Date Expiration Date Visits Requ ested Visits Authorized [id number] 1 1 Encounter Details Date Type Department Care Team Description 03/10/2020 Surgery Main Operating Room Geovanna Lewis, DELONTE UTADANIEL, Louisa Montano MD TRANSMETATARSAL ([facility] 12.71) [facility] [place] [address] SURGERY [phone] [place], [place] [address] Social History Tobacco Use Types [...] Sign Reading Time Taken Comments Blood Pressure 136/68 03/10/2020 5:15 PM EDT Pulse 74 03/10/2020 5:30 PM EDT Temperature 36.7 ??C (98 ??F) 03/10/2020 6:04 PM EDT Respiratory Rate 18 03/10/2020 6:04 PM EDT Oxygen Saturation 96% 03/10/2020 6:04 PM EDT Inhaled Oxygen Concentration - - [...] of left toe. He was admitted to [facility] where he received IV antibiotics and [...] and leukocytosis. He wasinstructed to go to [facility] ED. ?? In the ED he is [...] bilateral foot ulcers who presents to the [facility] ED. ?? # Osteomyelitis of Left??4th Metatarsal??s/p [...] 398* 344 308 Recent Labs 03/14/20 0505 03/13/204 03/12/20410 NA 136 136 135 K 3.6 3.9 [...] as needed - bactrim OUTPATIENT ANTIBIOTIC REGIMEN: OPAT INTAKE: Diagnosis: Osteomyelities +/- hardware infection, ?? [...] Time Provider Department Center 03/17/2020 3:[address] [facility] MR NURSE MRI [facility] Rad 03/17/2020 4:[address] [facility] MR [address] [facility] Rad 03/22/2020 3:30 PM Maia Gómez DPM Pod [facility] 03/22/2020 4:00 PM Niki Stockton APRN Wound [facility] 03/24/2020 9:[address] [facility] DX ROOM [address] [facility] Rad 03/24/2020 10:00 AM Geovanna Lewis MD [facility] ORTH 3C [facility] Your Inpatient Doctor: Leonela Sandhu MD Your Primary Care Provider: Janusz Tran APRN [phone] YOU ARE SCHEDULED FOR A FOLLOW UP WITH JANUSZ TRAN APRN ON 03/15/20 AT 11:10AM For questions regarding this document or issues relating to this hospitalization on the Medical Service, please contact your inpatient physician through the [facility] Business Specialist . Issues after hours and on weekends will be handled by the Hospitalist staff on-call. General Instructions Orthopaedic Surgery Discharge Instructions PROCEDURE: Procedure(s): AMPUTATION, TRANSMETATARSAL (WRVU 12.71) MEDICATION: ?? If you need a renewal of your pain medication, please contact the clinic at [phone]. PRESCRIPTION RENEWAL REQUEST CAN TAKE UP TO [...] 1. You will have follow-up appointments at [facility] as indicated below in Future Appointment and Orders. Future Appointments Date Time Provider Department Center 03/15/2020 4:45 PM Niki Stockton APRN Wound [facility] 03/17/2020 3:[address] [facility] MR NURSE MRI [facility] [place] Rad 03/17/2020 4:[address] [facility] MR [address] [facility] [place] Rad 03/22/2020 3:30 PM Maia Gómez DPM Pod [facility] 03/22/2020 4:00 PM Niki Stockton APRN Wound [facility] If you have questions or concerns: Friday through Friday, 8 AM - 5 PM, please call Robert Grider MD, 's office at . If it is after 5 PM or on the weekend, please call and ask to speak with the Orthopedic resident on-call. Future Appointments and Orders Future Appointments and Orders Future Appointments Provider Department Dept Phone 03/22/2020 3:30 PM Maia Gómez DPM Podiatry at [facility] Arrive at: [employer] [employer] [facility] [phone] 03/22/2020 4:00 PM Niki Stockton APRN Wound Care at [facility] Arrive at: [employer] [employer] [facility] [phone] 03/24/2020 9:[address] [facility] DX ROOM 2 XRay at [facility] Arrive at: [employer] [facility] 3T [phone] Please go to [facility] [employer] [facility] ([place] Location). 03/24/2020 10:00 AM Geovanna Lewis MD Orthopaedics at [facility] Arrive at: [employer] [facility] 3C [phone] 04/03/2020 11:00 AM Maribeth Peguero APRN Infectious Disease at [facility] Arrive at: [employer] [facility] 5C [phone] 04/21/2020 11:00 AM Page Rdz MD Infectious Disease at [facility] Arrive at: [employer] [facility] [phone] Future Orders Complete By Expires XR Foot Min 3 views Left (Generic) [79701 Custom] 03/24/2020 09/23/2020 Process Instructions: Scheduling Instructions: Comments: Questions: Where will study be performed?: [facility] Radiology Portable exam?: Reason for exam and clinical history: s/p L 4th ray amp Clinical information / hansen questions: Stat read required?: Date of injury if applicable: Requested Time: OPAT: Order / Recommendation for Post Discharge IV Antibiotic Management [[id number] CPT(R)] As directed Process Instructions: If no progress note charted, please enter Clinical details in comments. Scheduling Instructions: Comments: Please Fax all results to: OPAT Program Infectious Disease Section [facility] [place], [place] [address] FAX: After hours, please contact the Infectious Disease Physician communications department chair at . If this order was signed greater than 72 hours prior to [facility] discharge, please call to confirm the accuracy [...] Friday and prn and fax results to [facility] at [phone]. Please draw labs off PICC line. Please see OPAT order for lab draw details. Please RN [...] Referral to Home Health - at DISCHARGE [ZAW4721 CPT(R)] As directed Process Instructions: Scheduling Instructions: Comments: DOCUMENTATION FOR VNA SERVICES (INCLUDING THOSE PATIENTS WITH MEDICARE COVERAGE REQUIRING HOME VNA SERVICES AND/OR HOSPICE SERVICES) PATIENT'S LOCATION: Soledad Rmaos [address] [facility] [address] (home) Cell: No relevant phone numbers on file. Process Manager's Name: Patient In discussion with the attending physician, it is certified that this patient is under their care and that they, or a Nurse Practitioner,Clinical Nurse specialist or Physician Pc Analyst who is working directly with them, had [...] AGENCY: [facility] [place] PHONE: [phone] FAX: [phone] Start of care: 24-48 hours after discharge [...] to be obtained from this patient'sPCP: Janusz Tran, LISA [address] [facility] [address] All A agencies which cover the area of patient's residence have been reviewed, either verbally or in writing, and patient/family have chosen the home health care agency noted Questions: Agency name and contact information: [facility] Patient location post discharge: Home What services are requested: Registered Nurse Physical Therapy Occupational Therapy Start date: Responsible MD post discharge contact info: PCP Provider Contact Information: Janusz Tran APRN [address] [facility] [id number] Discharge References/Attachments: Discharge References/Attachments None documented in this encounter Discharge Instructions Discharge InstructionsLoly Amaya MD - 03/14/2020 2:16 PM EST Orthopaedic Surgery Discharge Instructions PROCEDURE: Procedure(s): AMPUTATION, TRANSMETATARSAL (WRVU 12.71) MEDICATION: ?? If you need a renewal of your pain medication, please contact the clinic at [phone]. PRESCRIPTION RENEWAL REQUEST CAN TAKE UP TO [...] 1. You will have follow-up appointments at [facility] as indicated below in Future Appointment and Orders. Future Appointments Date Time Provider Department Center 03/15/2020 4:45 PM Niki Stockton APRN Wound [facility] 03/17/2020 3:[address] [facility] MR NURSE MH MRI [facility] Rad 03/17/2020 4:[address] [facility] MR 6 MH MRI [facility] 03/22/2020 3:30 PM Maia Gómez DPM Pod [facility] 03/22/2020 4:00 PM Niki Stockton APRN Wound [facility] If you have questions or concerns: Friday [...] as needed - bactrim OUTPATIENT ANTIBIOTIC REGIMEN: [facility] INTAKE: Diagnosis: Osteomyelities +/- hardware infection, ?? [...] Time Provider Department Center 03/17/2020 3:[address] [facility] MR NURSE MRI [facility] [place] Rad 03/17/2020 4:[address] [facility] [place] MR [address] [facility] [place] Rad 03/22/2020 3:30 PM Maia Gómez DPM MH Pod [facility] 03/22/2020 4:00 PM Niki Stockton APRN Wound [facility] 03/24/2020 9:[address] [facility] DX ROOM [address] [facility] [place] Rad 03/24/2020 10:00 AM Geovanna Lewis MD [facility] ORTH 3C [facility] Your Inpatient Doctor: Leonela Sandhu MD Your Primary Care Provider: Janusz Tran APRN [phone] YOU ARE SCHEDULED FOR A FOLLOW UP WITH JANUSZ TRAN APRN ON 03/15/20 AT 11:10AM For questions regarding this document or issues relating to this hospitalization on the Medical Service, please contact your inpatient physician through the [facility] Business Specialist . Issues after hours and on weekends [...] patient and . Tequila Hendrickson RN Leonela Sandhu MD - 03/14/2020 2:57 PM EST Hospital [...] spent >30 minutes (Day of Discharge Code 27154) involved in the final examination of the [...] AM EST Patient, Soledad Ramos, admitted to [facility] on 03/09/20. 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 Per MD, patient is medically ready for discharge with VNA services, confirmed acceptance of VNA services through [facility]. [facility] has provided teach to patient for IV antibiotics per rquest. Medical Office Specialist spoke with patient who states that his is on her way and plans to be here around noon totransport patient home in private vehicle. RN and MD aware of discharge plan. CM to continue to monitor. Lashanda Mcdonald RN Pager: [phone] Janine Syed RN - 03/14/2020 8:14 AM EST [facility] Follow up Note: [facility] Confirmed with Vidhya from [facility] that patient will be seen for SOC on 03/15 @2pm Hospital teaching was completed today with pt and his for IVP MOA of CTX. Vidhya -pt's remember process and feels able to assist pt. Delivery of IV supplies will occur by 2pm to meet the VNA SOC visit. [facility] [phone] Page Gutierrez MD - 03/13/2020 4:17 PM [...] John Egan - 03/13/2020 3:38 PM EST Motorcycle Mechanic Encounter Note Patient Name: Soledad Ramos : [id number] MR#: [id number] Admit Date: 03/09/2020 8:15 AM Hospital Day 4 days Narrative: Visited to introduce and assess acceptance of Motorcycle Mechanic services. Pt was awake, alert, oriented and in bed. Pt was at bedside and pt says that he is feeling better and he is living with family. Assessment:Patient coping positively with stresses of illness/hospitalization at this time. Pt shared that he is blessed with family and children which is source of courage and strength. Intervention and Outcome:Provided listening and encouraging presence. Motorcycle Mechanic services accepted.Conversation to build trusting relationship.Provided pastoral presence. Follow-up: yes Time in Direct Care:05 Mins John Nava 03/13/2020 TrioLoly MD - 03/13/2020 2:24 PM EST Inpatient [...] bilateral foot ulcers who presents to the [facility] ED now s/p left 4th metatarsal resection. [...] bilateral foot ulcers who presents to the [facility] ED. ?? He is POD3 s/p L [...] q6h (home succinate 100) ?? # Diet: [facility]. 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 Electronically signed by: Gordon Monsivais MD, [facility] ([phone]), at 03/09/2020 3:21 PM XR Foot Min 3 views Left (Generic) (Exam End: 03/09/2020 4:50 PM) Impression Findings are concerning for osteomyelitis of the head of the fourth metatarsal. Thank you for letting us participate in the care of this patient. For questions regarding this report, please contact the number below. Electronically signed by: Asa Johnston MD, [facility] ([phone]), at 03/09/2020 4:55 PM XR Foot 2 views Left (Exam End: 03/10/2020 9:23 PM) Impression 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 Thank you for letting us participate in the care of this patient. For questions regarding this report, please contact the number below. Electronically signed by: DAVIDE LÓPEZ MD, [facility] ([phone]), at 03/11/2020 2:41 PM ASSESSMENT / PLAN: Soledad Ramos is a [...] Time Provider Department Center 03/17/2020 3:[address] [facility] MR NURSE MRI [facility] Rad 03/17/2020 4:[address] [facility] MR [address] [facility] [place] Rad 03/22/2020 3:30 PM Maia Gómez DPM Pod [facility] 03/22/2020 4:00 PM Niki Stockton APRN Wound [facility] Associated attestation - Geovanna Lewis MD - [...] bilateral foot ulcers who presents to the [facility] ED now s/p left 4th metatarsal resection. [...] Ins/Outs: Intake/Output Summary (Last 24 hours) at 03/12/2020 0711 Last data filed at 03/11/20202019 Gross per [...] bilateral foot ulcers who presents to the [facility] ED. ?? He is POD2 s/p L [...] q6h (home succinate 100) ?? # Diet: [facility]. Diet # DVT Ppx: enoxaparin # Decision maker: Self or # Code Status: Full Loly Amaya MD Internal Medicine, PGY-1 Medicine Team Pager #[phone] 03/12/2020 Associated attestation - Leonela Sandhu MD [...] of two midnights or is on the [facility] inpatient only procedure list (status C) due [...] (100-175)/(63-123) Intake/Output Summary (Last 24 hours) at 03/12/2020620 Last data filed at 03/11/20202019 Gross per [...] this report, please contact the number below. Electronically signed by: Gordon Monsivais MD, [facility] ([phone]), at 03/09/2020 3:21 PM XR Foot Min 3 views Left (Generic) (Exam End: 03/09/2020 4:50 PM) Impression Findings are concerning for osteomyelitis of the head of the fourth metatarsal. Thank you for letting us participate in the care of this patient. For questions regarding this report, please contact the number below. Electronically signed by: Asa Johnston MD, [facility] ([phone]), at 03/09/2020 4:55 PM XR Foot 2 views Left (Exam End: 03/10/2020 9:23 PM) Impression 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 Thank you for letting us participate in the care of this patient. For questions regarding this report, please contact the number below. Electronically signed by: DAVIDE LÓPEZ MD, [facility] ([phone]), at 03/11/2020 2:41 PM ASSESSMENT / PLAN: Soledad Ramos is a 64 y.o. male 2 Days Post-Op S/P 4th MT ray resection for osteo. Doing well post-operatively. On cefazolin and flagyl. Will leave drain in at this point but plan will be fore removal prior to discharge. Please page #[phone] if patient is to be discharged today. Activity: NWB LLE DVT prophylaxis: recommend lovenox inpatient Closure: Prolene out ~04/01 Dressing: splint Antibiotics: kim Garcia MD 03/12/2020 Future Appointments Date Time Provider Department Center 03/17/2020 3:[address] [facility] [place] MR NURSE MRI [facility] [place] Rad 03/17/2020 4:[address] [facility] [place] MR [address] [facility] [place] Rad 03/22/2020 3:30 PM Maia Gómez DPM Pod [facility] 03/22/2020 4:00 PM Niki Stockton APRN Wound [facility] Associated attestation - Geovanna Lewis MD - [...] bilateral foot ulcers who presents to the [facility] ED now s/p left 4th metatarsal resection. [...] bilateral foot ulcers who presents to the [facility] ED. ?? He is POD1 s/p L [...] q6h (home succinate 100) ?? # Diet: [facility]. CC Diet # DVT Ppx: enoxaparin # Decision maker: Self or # Code Status: Full Chioma Patterson MD Internal Medicine, PGY - 3 Medicine Team Pager #[phone] 03/11/2020 Associated attestation - Leonela Sandhu MD [...] of two midnights or is on the [facility] inpatient only procedure list (status C) due [...] this report, please contact the number below. Electronically signed by: Gordon Monsivais MD, [facility] ([phone]), at 03/09/2020 3:21 PM XR Foot Min 3 views Left (Generic) (Exam End: 03/09/2020 4:50 PM) Impression Findings are concerning for osteomyelitis of the head of the fourth metatarsal. Thank you for letting us participate in the care of this patient. For questions regarding this report, please contact the number below. Electronically signed by: Asa Johnston MD, [facility] ([phone]), at 03/09/2020 4:55 PM ASSESSMENT / PLAN: Soledad Ramos is a 64 y.o. male 1 Day Post-Op S/P 4th MT ray resection for osteo. Doing well post-operatively. Continue to monitor UOP. Activity: NWB LLE DVT prophylaxis: recommend lovenox inpatient Closure: Prolene out ~04/01 Dressing: splint Antibiotics: kim Sandoval MD 03/11/2020 Future Appointments Date Time Provider Department Center 03/17/2020 3:[address] [facility] MR NURSE [facility] Rad 03/17/2020 4:[address] [facility] MR 6 [facility] Rad 03/22/2020 3:30 PM Maia Gómez DPM Pod [facility] 03/22/2020 4:00 PM Niki Stockton APRN Wound [facility] Associated attestation - Geovanna Lewis MD - 03/14/2020 6:57 AM EST Patient seen and examined. Agree with resident note. Dania Lewis MD Department of Orthopaedics 03/14/20 Smita White MD - 03/10/2020 9:41 PM EDT ORTHOPAEDIC [...] this report, please contact the number below. Electronically signed by: Gordon Monsivais MD, [facility] ([phone]), at 03/09/2020 3:21 PM XR Foot Min 3 views Left (Generic) (Exam End: 03/09/2020 4:50 PM) Impression Findings are concerning for osteomyelitis of the head of the fourth metatarsal. Thank you for letting us participate in the care of this patient. For questions regarding this report, please contact the number below. Electronically signed by: Asa Johnston MD, [facility] ([phone]), at 03/09/2020 4:55 PM ASSESSMENT / PLAN: Soledad Ramos is a 64 y.o. male Day of Surgery S/P 4th MT ray resection for osteo. Doing well post-operatively. Continue to monitor UOP. Activity: NWB LLE DVT prophylaxis: recommend lovenox inpatient Closure: Prolene out ~04/01 Dressing: splint Antibiotics: kim White MD 03/10/2020 Future Appointments Date Time Provider Department Center 03/17/2020 3:10 PM [facility] NURSE [facility] Rad 03/17/2020 4:[address] [facility] MR 6 [facility] Rad 03/22/2020 3:30 PM Maia Gómez DPM Pod [facility] 03/22/2020 4:00 PM Niki Stockton APRN MH Wound [facility] Associated attestation - Geovanna Lewis MD - 03/14/2020 6:57 AM EST Patient seen and examined. Agree with resident note. Dania Lewis MD Department of Orthopaedics 03/14/20 Brittani Patrick RN - 03/10/2020 5:23 PM EDT 1705 pt admitted s/p left toe amp. Monitors attached and alarms set. Report received from OR team. Pt awake, alert, denies pain on admission. Follows commands. WC Loly Amaya MD - 03/10/2020 7:14 AM [...] bilateral foot ulcers who presents to the [facility] ED. 24 Hour Events: 03/09: HDS and afebrile. Clinically well appearing. Holding antibiotics. NPO midnight for OR tomorrow. History of 3 beers daily and opioid use on methadone, started CIWA scale. - 2230 Pt hypertensive 183/93. Not agitated. Not triggering alcohol withdrawal protocol (only pointsfor HTN). - 2300: spoke to his regarding home meds after [...] at 03/10/2020 0946 Last data filed at 03/09/20208 Gross per 24 hour Intake 5 ml [...] bilateral foot ulcers who presents to the [facility] ED. ?? Plan for OR today with [...] q6h (home succinate 100) ?? # Diet: [facility]. NPO at midnight. # DVT Ppx: Hold, restart at midnight # Decision maker: Self or # Code Status: Full Loly Amaya MD Internal Medicine, PGY - 1 Medicine Team Pager #[phone] 03/10/2020 Candi Horvath MD - 03/10/2020 6:39 [...] at 03/10/2020 0639 Last data filed at 03/09/20202127 Gross per [...] 03/15/2020 4:45 PM Niki Stockton APRN Wound [facility] 03/17/2020 3:[address] [facility] MR NURSE MH MRI [facility] Rad 03/17/2020 4:[address] [facility] MR 6 MH MRI [facility] 03/22/2020 3:30 PM Maia Gómez DPM Pod [facility] 03/22/2020 4:00 PM Niki Stockton APRN Wound [facility] Associated attestation - Geovanna Lewis MD - [...] bilateral foot ulcers who presents to the [facility] ED after recent left foot MRI revealed [...] of left toe. He was admitted to [facility] where he received IV antibiotics and [...] and leukocytosis. He wasinstructed to go to [facility] ED. In the ED he is afebrile [...] bilateral foot ulcers who presents to the [facility] ED. I discussed the case with orthopedics [...] 1200mg bid - continue home methadone - WA ativan assessment scale - monitor for 48 hours - thiamine 100mg daily # Mild hyponatremia - LR @ 125 cc/hr for 12 hours - daily bmp # COPD, Gold 2 - duonebs prn # Substance use disorder - nicotine patch daily # HTN - continue chlorthalidone 25 daily - metoprolol tartrate 25 q6h (home succinate 100) # Diet: [facility]. NPO at midnight. # DVT Ppx: Hold # Decision maker: Self or # Code Status: Full Chioma Patterson MD Internal Medicine Pager # [phone] 03/09/20 Associated attestation - Robert Godwin MD - 03/11/2020 7:28 AM EDT Attending Attestation Please see Hsosein's note for details of the patient history [...] of two midnights or is on the [facility] inpatient only procedure list (status C) due [...] to the planned procedure. Hand Hygiene: The bliss press operator did perform hand hygiene prior to line insertion. Catheter type: PICC Lot number: [id number] Procedure Technique: Skin was prepped with chlorhexidine. [...] per request. No further needs. Awaiting transpo Mali Brown RN - 03/09/2020 9:27 AM EDT [...] ARTHROPLASTY performed by Davide Mallory MD at [facility] MAIN OR ??? PRO UPPER GI ENDOSCOPY, DIAGNOSTIC Bilateral 08/17/2015 EGD, UPPER GI ENDOSCOPY performed by Trev Hong MD at [facility] ENDOSCOPY ??? REVISION TOTAL HIP ARTHROPLASTY bilateral [...] Range Ab Screen Interp Negative Expires at 4289 on: 03/12/2020 ABORH Recheck Status Result Value Ref Range ABORH Type Recheck Completed XR Foot Min 3 views Left (Generic) Final Result Findings are concerning for osteomyelitis of the head of the fourth metatarsal. Thank you for letting us participate in the care of this patient. For questions regarding this report, please contact the number below. Electronically signed by: Asa Johnston MD, [facility] ([phone]), at 03/09/2020 4:55 PM MRI Foot wo Contrast Left Final Result Severe [...] this report, please contact the number below. Electronically signed by: Gordon Monsivais MD, [facility] ([phone]), at 03/09/2020 3:21 PM Procedures: Medical Decision Makin y.o. male with [...] Course: ED Course as of Mar 09 180 Christina Mar 09, 2020 1551 With Ortho who recommends admission to the hospital. Spoke with hospital medicine who will decide appropriate service for patient in conjunction with Ortho. Medications LORazepam (ATIVAN) injection 0.5 mg (has no administration in time range) LORazepam (ATIVAN) 2 mg/mL injection (has no administration in time range) diazePAM (Valium) tablet 5 mg (5 mg Oral Given 03/09/20 6507) Assessment: 1. Osteomyelitis 2. Leg swelling Disposition: Admit to medicine Harley Miguel PA 03/09/20 1804 Ryan Landrum MD - 03/09/2020 7:51 AM EDT Coming from wound clinic for presumed Foot Osteo with elevated markers, no imaging yet. Worsening picture despite bactrim 48hrs. Ryan Landrum MD 03/09/20 0752 documented in this encounter Miscellaneous Notes Plan of Care - Sharad Mathis RN - 03/14/2020 2:10 PM EST Problem: Health Knowledge, Opportunity to Enhance (Adult,NICU,,Obstetrics,Pediatric) Goal: Knowledgeable about Health Subject/Topic Patient will demonstrate the desired outcomes by discharge/transition of care. Outcome: Outcome (s) achieved Date Met: 03/14/20 Peripherally Inserted Central Catheter (PICC) Teaching Sheet Peripherally inserted central catheters (imoq-[id number]) (PICC) are used when you need IV [...] midline catheter? PICC lines are used for intermediate frame tender treatments. PICC lines may be used for [...] can be set up via the nurse Operating Cost Clerk to help you. What are possible complications [...] Efficacy, Safety, Use, and Administration of [employer] 2005 Plan of Care - Anusha Matias RN [...] followed in the wound clinic and sees director center. Wound Assessment and Care Provided: Patient seen [...] Oral Carbohydrates (gms) estimated: 34 Current bed: [facility] Assessment: Patient with neuropathy and callus [...] e-DH if concerns arise. Discussed plan with: RN: Meli Please contact CHIO TURNER RN on pager [phone] or the wound care team at [phone] or pager [phone] skin and wound care concerns or questions. Plan of Care - Warner, Pasquale Esquivel, PT - 03/13/2020 11:15 AM EST Physical [...] performed by Geovanna Lewis MD at [facility] MAIN OR ??? PRO TOTAL KNEE ARTHROPLASTY Left 12/13/2015 @TOTAL KNEE ARTHROPLASTY performed by Davide Mallory MD at [facility] MAIN OR ??? PRO UPPER GI ENDOSCOPY, DIAGNOSTIC Bilateral 08/17/2015 EGD, UPPER GI ENDOSCOPY performed by Trev Hong MD at [facility] ENDOSCOPY ??? REVISION TOTAL HIP ARTHROPLASTY bilateral [...] unspecified Social History: Lives with spouse in [place], [place] in a split level home. does work so there are hours he's alone. Stairs: He goes up 6 or 7 steps and stays on top level of home. Baseline Mobility: ambulatory with custom shoes from [facility] since September 2019. Equipment at home: has [...] for this consult. PASQUALE BARRY, PT Pager: [phone] Physical Therapy Inpatient Rehabilitation Department Time IN / OUT: :10-11:15 Total Evaluation Minutes, Physical Therapy: 53(EV) 2017 [...] Up to BR frequently with FWW. Dressing (ujde and splint to L foot), C/DI. BRIAN [...] Ongoing (Interventions Implemented as Appropriate) 03/12/20 0605 03/12/20 0820 Coping/Psychosocial Plan Of Care Reviewed With -- [...] Handling Outcome: Ongoing (Interventions Implemented as Appropriate) 03/12/2081903/12/20 1410 Tavarez Fall Risk History of Falling [...] Control Outcome: Ongoing (Interventions Implemented as Appropriate) 03/12/2081903/12/20 141 Safety Interventions Isolation Precautions standard precautions maintained [...] to BR with SBA and FWW. C/o 8/10 pain in RLE; PRN dilaudid given x3, see MAR. Splint and jude wrap in place on RLE - CDI and no drainage. No acute events, will continue to monitor and page with updates. PLAN MOVING FORWARD: Mon labs, [...] toe 01/2019 s/p amputation, who presented to [facility] ED from wound care clinic for concerns [...] be increasingly erythematous, andhe was referred to [facility] ED for further imaging and IV antibiotics. [...] Was treated for hepC with Epclusa from [facility] GI Current methadone user Past Surgical History: As above Medications: Pertinent prior to admission medications include: Prior to admission bactrim DS Allergies: Allergies Allergen Reactions ??? Morphine Other (See Comments) STATES THAT IT DOES NOT TAKE HIS PAIN AWAY Family History: Per chart review Social History: Lives with his in [place], [place]. One dog. Social drinking, current smoker, [...] Donal Serrano MD 03/11/2020 9:11 AM Pager [phone] Infectious Diseases Attending I saw the patient with the infectious diseases fellow. I have made some modifications and agree withthe presentation of data and the assessment and plan as outlined above. Michelle Xiong MD Training And Development Coordinator Page [phone] minutes of this 55 minute visit were spent on the floor/unit in counseling or coordination of care with the patient, regarding treatment of infection as detailed in note above. Plan of Care - Sonido Reddy RN - 03/11/2020 5:36 AM EDT Problem: Patient Care Overview Goal: Plan of Care Review Outcome: Ongoing (Interventions Implemented as Appropriate) 03/10/20 1814 03/10/202199 Coping/Psychosocial Plan Of Care Reviewed With -- [...] Control Outcome: Ongoing (Interventions Implemented as Appropriate) 03/10/20 2200 Safety Interventions Isolation Precautions standard precautions maintained [...] Horvath MD - 03/10/2020 5:03 PM EDT [facility] Operative Note Patient Name: Soledad Ramos : [id number] MR#: [id number] Case Date: 03/10/2020 Surgeon: Surgeon(s) and Role: [...] planned surgery, and site according to the [facility] [place] Protocol. Circumferential racquet type incision was made [...] Ramos would be surrogate decision maker per [place] surrogate decision making law. Any patient receiving care at [facility] must abide by [place] law. The hierarchy for surrogate decision making [...] 6 steps in, Handicap rail into house [address] [facility] [id number] Social & Family Supports/Community Resources: Patient identified his spouse, 2 adult children and 3 grandchildren as his support network. All live local. Extended Emergency Contact Information Primary Emergency Contact: Padmini Ramos [employer] [facility] Relation: Spouse Secondary Emergency Contact: [facility] Relation: Child Behavioral Health History: Patient denies. However, medical record indicates AUD and Opoid Use Disorder. Patient currently prescribed methadone for Opoid Use Disorder. Substance Use/Abuse: Tobacco hx: 1 ppd ETOH hx: 3- 24 ounce cans of wicked tea daily Illicit drug use hx: MJ daily/Did not share amount Other Pertinent/Service Specific Information: n/a Health/Prescription Coverage: Primary Insurance: [employer] [employer] [facility] [place] Payor: [facility] [place] / Plan: [facility] [place] VHP / Product Type: *No Product type* / Secondary Insurance: MEDICARE Prescription Coverage: Same Preferred Pharmacy: [address] [phone] [facility] [id number] Other: n/a Primary Care Provider: Janusz Tran APRN [phone] Patient/Caregiver Goals of Treatment: Go home and get better. Potential Needs for Transition of Care: Rehab/SNF: N/A Home Health: VNA/VNH pending/Wound Care DME: N/A Dialysis: N/A Community Resources: N/A Transportation: Spouse when medically ready Other: n/a Anticipated Barriers to Discharge/Special Considerations: none anticipated Assessment/Plan: Data: 64 y/o male who presents to [facility] with osteomyelitis Assessment: Patient laying in bed dressed in street clothes. Upbeat and positive.Cooperative during interview. Minimized his YINKA- AUD and OUD. Plan: Continue to monitor for psychosocial needs Following for DIRECTOR PUBLIC SERVICE and care management support through disposition. A member of the Care Management team will continue to monitor progress, follow for continuity of care and assist with transition of care planning. VITALIY Giron Pager: [phone] Plan of Care - Sonido Reddy RN - 03/10/2020 1:07 AM EDT Problem: Patient Care Overview Goal: Plan of Care Review Outcome: Ongoing (Interventions Implemented as Appropriate) 03/10/2031 Coping/Psychosocial Plan Of Care Reviewed With patient [...] Mutuality Outcome: Ongoing (Interventions Implemented as Appropriate) 03/10/2052 Mutuality/Individual Preferences What Anxieties, Fears or Concerns Do You Have About Your Health or Care? none What Questions Do You Have About Your Health or Care? none What Information Would Help Us Give You More Personalized Care? none Goal: Fall Prevention-Safe Patient Handling Outcome: Ongoing (Interventions Implemented as Appropriate) 03/09/20213003/10/2031 Tavarez Fall Risk History of Falling -- [...] or friend will provide Consult Note - Pedrito Coronel MD - 03/09/2020 1:55 PM EDT [...] Patient has history of 5th toe amputation / osteomyelitis 01/28 [facility]. He had L foot MRI 08/29 which [...] evaluation and treatment. Please page Orthopaedic consults [phone]) with any questions or co ncerns. ?? Pedrito Coronel MD P. [phone] 03/09/20 9:49 PM Future Appointments Date Time Provider Department Center 03/15/2020 4:45 PM Niki Stockton APRN [facility] 03/17/2020 3:[address] [facility] MR NURSE MRI [facility] 03/17/2020 4:[address] [facility] MR 6 MRI [facility] 03/22/2020 3:30 PM Maia Gómez DPM Pod [facility] 03/22/2020 4:00 PM Niki Stockton APRN [facility] ED Triage - Mali Brown RN - 03/09/2020 8:21 AM EDT Arrived to wound care this morning and was advised to come here to the ED due to blood work showing infection with the wound on his foot. documented in this encounter Plan of Treatment Upcoming Encounters Date Type Specialty Care Team Description 12/11/2021 Appointment Radiology 12/11/2021 Office Visit Orthopaedics Marion Tavera APRN [facility] ER ORTHOPAEDIC SURG [place] 0375 (Wo rk) 01/15/2022 Appointment Radiology Stiven Cervantes MD [facility] Pulmonary Medici nelly [place], [place] 0375 (Wo rk) Scheduled Procedures Name [...] this report, please contact e number below. Electronically signed by: Alvin Leyva, [facility] ([phone]), at 03/24/2020 9:59 AM Robert Grider MD IMG DX ORDERABLES Place PICC Line: Contact Vascular Access Page [phone] Extremity to exclude: No restrictions; Is PICC [...] the planned procedu re. Hand Hygiene: The bliss press operator did perform hand hygiene pr ior to line insertion. Catheter type: PICC Lot number: [id number] Procedure Technique: Skin was prepped with chlorhexidine. [...] Ortega M.D. PGY-5 Sharad Mathis RN 03/14/2020 Leonela [...] report, please contact e number below. ? Electronically signed by: Bridgette Davies MD, [facility] ([phone]), at 03/14/2020 2:17 PM Narrative 03/14/2020 2:17 PM EST EXAMINATION: XR [...] this report, please contact e number below. Electronically signed by: Bridgette Davies MD, [facility] ([phone]), at 03/14/2020 2:17 PM Leonela Sandhu MD IMG FLUORO ORDERABLES (ABNORMAL) Differential, Automated (03/14/2020 5:05 AM EST) [facility] Method Time Signature Neutrophils % 66.5 % [facility] Neutr Abs (ANC) 6.82 (H) 1.70 - [facility] 6.10 [facility] x10(3)/[facility] L LABORATORY Lymphocytes % 15.8 % [facility] Lymphocytes Abs 1.6 0.9 - 3.2 [facility] x10(3)/[facility] [place] LABORATORY Monocytes % 10.0 % [facility] Monocyte Abs 1.0 (H) 0.3 - 0.9 [facility] x10(3)/[facility] [place] LABORATORY Eosinophils % 6.3 % [facility] Eosinophils Abs 0.6 (H) 0.0 - 0.4 [facility] x10(3)/[facility] [place] LABORATORY Basophils % 0.8 % [facility] Basophils Abs 0.1 0.0 - 0.1 [facility] x10(3)/[facility] [place] [facility]ORATORY Immature Gran % 0.60 % [facility] Comment: Immature granulocytes(IG's)percentage an d absolute count will include metamyelocytes, myelocytes, and promyelo cytes. Blood smears from CBCs yielding IG's will be scanned manually for concor dance. If this scan disagrees with the automated IG or if promyelocytes are not ed, a manual differential will be performed. Shannan Gran Abs 0.06 (H) 0.00 - 0.04 x10(3)/[facility] LABORATORY Specimen Anatomical Collection Method Collection Time Receive d Time (Source) Location / / Volume Laterality Blood specimen 03/14/2020 5:05 AM 020 5:31 (specimen) EST AM EST Resulting Agency Comment Spec In Lab Candi Lizzy Horvath MD HEMATOLOGY ORDERABLES Performing Organization Address City/State/[place] [address] (ABNORMAL) Hemogram (03/14/2020 5:05 AM EST) Analysis Performed At Patho logist Time Signature WBC 10.2 (H) 4.0 - 9.5 [facility] x10(3)/[facility] LABORATORY RBC 4.17 (L) 4.58 - [facility] 5.54 [facility] x10(6)/[facility] LABORATORY Hemoglobin 12.9 (L) 13.7 - [facility] 16.5 gm/dL [facility] Hematocrit 39.0 (L) 40.5 - [facility] 48.5 % [facility] MCV 93.5 (H) 82.9 - [facility] 93.1 [facility] LABORATORY MCH 30.9 27.5 - [facility] 32.1 pg [facility] MCHC 33.1 32.0 - [facility] 35.7 gm/dL [facility] Platelets 398 (H) 145 - 357 [facility] x10(3)/[facility] LABORATORY RDWSD 46.1 (H) 36.0 - [facility] 45.0 [facility] RDWCV 13.4 11.4 - [facility] 13.8 % [facility] MPV 9.2 7.6 - 12.9 [facility] nRBC % Auto 0.0 % [facility] nRBC Abs Auto 0.000 0.000 - [place] 0.000 [facility] x10(3)/[facility] LABORATORY Specimen Anatomical Collection Method Collection Time Receive d Time (Source) Location / / Volume Laterality Blood specimen 03/14/2020 5:05 AM 020 5:31 (specimen) EST AM EST Resulting Agency Comment Spec In Lab Candi B Alexandru DYSON HEMATOLOGY ORDERABLES Performing Organization Address City/State/[place] [address] (ABNORMAL) BMP w/fasting Glucose (03/14/2020 5:05 AM EST) athologist Signature Glucose 95 65 - 99 [facility] Fasting mg/dL [facility] Comment: ?Fasting* Glucose Interpretive C [...] of Diabetes Mellitus, Position Statement from the [place] [employer]. ??Diabete s Care, Volume 33, Supplement 1, May 2009 BUN 7 (L) 10 - 20 mg/dL [facility] Creatinine 0.67 (L) 0.80 - 1.50 mg/dL [facility] Sodium 136 135 - 145 mmol/L [facility] Potassium 3.6 3.5 - 5.0 mmol/L [facility] Comment: Please note: ??Patients with WBC >100,00 0 may have falsely elevated Potassium levels. ??For accurate Potassium quantif ication in these patients send serum separator tube (gold top) for subsequent determinations. ??Contact the Clinical Chemistry Laboratory if there are any qu estions. Chloride 100 98 - 107 mmol/L [facility] CO2 27 22 - 31 mmol/L [facility] Anion Gap 9 5 - 15 mmol/L [facility] Calcium 9.5 8.5 - 10.5 mg/dL [facility] Estimated GFR 100 >=60 mL/min/1.73 m?? [facility] Comment: The eGFR was calculated using the CKD-EP I equation. As with all creatinine based estimates of kidney function, eGFR values calculated with the CKD-EPI equation are not accurate in patients wi th acute kidney failure, extremes of body mass or the acutely ill. http://[employer]/[facility] eGFR 116 >=60 mL/min/1.73 m?? [facility] Comment: The eGFR was calculated using the CKD-EP I equation. As with all creatinine based estimates of kidney function, eGFR values calculated with the CKD-EPI equation are not accurate in patients wi th acute kidney failure, extremes of body mass or the acutely ill. http://[employer]/[facility] Specimen Anatomical Collection Method Collection Time Receive d Time (Source) Location / / Volume Laterality Blood specimen 03/14/2020 5:05 AM 020 5:31 (specimen) EST AM EST Resulting Agency Comment Spec In Lab Robert Grider MD CHEMISTRY ORDERABLES Performing Organization Address City/State/[place] [address] (ABNORMAL) Differential, Automated (03/13/2020 4:14 AM EST) [facility] Method Time Signature Neutrophils % 65.8 % [facility] Neutr Abs (ANC) 6.88 (H) 1.70 - [facility] 6.10 [facility] x10(3)/[facility] L LABORATORY Lymphocytes % 17.4 % [facility] Lymphocytes Abs 1.8 0.9 - 3.2 [facility] x10(3)/[facility] [place] LABORATORY Monocytes % 9.9 % [facility] Monocyte Abs 1.0 (H) 0.3 - 0.9 [facility] x10(3)/[facility] [place] LABORATORY Eosinophils % 5.6 % [facility] Eosinophils Abs 0.6 (H) 0.0 - 0.4 [facility] x10(3)/[facility] LABORATORY Basophils % 0.7 % [facility] Basophils Abs 0.1 0.0 - 0.1 [facility] x10(3)/[facility] LABORATORY Immature Gran % 0.60 % [facility] Comment: Immature granulocytes(IG's)percentage an d absolute count will include metamyelocytes, myelocytes, and promyelo cytes. Blood smears from CBCs yielding IG's will be scanned manually for concor dance. If this scan disagrees with the automated IG or if promyelocytes are not ed, a manual differential will be performed. Shannan Gran Abs 0.06 (H) 0.00 - 0.04 x10(3)/[facility] LABORATORY Specimen Anatomical Collection Method Collection Time Receive d Time (Source) Location / / Volume Laterality Blood specimen 03/13/2020 4:14 AM 020 4:50 (specimen) EST AM EST Resulting Agency Comment Spec In Lab Candi Horvath MD HEMATOLOGY ORDERABLES Performing Organization Address City/State/[place] [address] (ABNORMAL) Hemogram (03/13/2020 4:14 AM EST) Analysis Performed At Patho logist Time Signature WBC 10.4 (H) 4.0 - 9.5 [facility] x10(3)/[facility] LABORATORY RBC 4.12 (L) 4.58 - [facility] 5.54 [facility] x10(6)/[facility] LABORATORY Hemoglobin 12.7 (L) 13.7 - [facility] 16.5 gm/dL [facility] Hematocrit 38.6 (L) 40.5 - [place] 48.5 % [facility]ORATORY MCV 93.7 (H) 82.9 - [place] [facility] 93.1 [facility] LABORATORY MCH 30.8 27.5 - LOUISA MONTANO 32.1 pg [facility] MCHC 32.9 32.0 - LOUISA MONTANO 35.7 gm/dL [facility] Platelets 344 145 - 357 LOUISA COOLEEMEE x10(3)/[facility] LABORATORY RDWSD 45.5 (H) 36.0 - LOUISA MONTANO 45.0 [facility] RDWCV 13.3 11.4 - [facility] 13.8 % [facility] MPV 9.5 7.6 - 12.9 LOUISA MONTANO [facility] LABORATORY nRBC % Auto 0.0 % [facility] nRBC Abs Auto 0.000 0.000 - LOUISA MONTANO 0.000 [facility] x10(3)/[facility] LABORATORY Specimen Anatomical Collection Method Collection Time Receive d Time (Source) Location / / Volume Laterality Blood specimen 03/13/2020 4:14 AM 020 4:50 (specimen) EST AM EST Resulting Agency Comment Spec In Lab Candi B Alexandru DYSON HEMATOLOGY ORDERABLES Performing Organization Address City/State/[place] [address] (ABNORMAL) BMP w/fasting Glucose (03/13/2020 4:14 AM EST) athologist Signature Glucose 91 65 - 99 [facility] Fasting mg/dL [facility] Comment: ?Fasting* Glucose Interpretive C riteria Normal ?65-99 mg/dL Impaired Fasting glucose ?100-125 mg/dL Consistent with Diabetes Mellitus ? >or= 126 mg/dL *Fasting is defined as no caloric intake for at least 8 hours In the absence of unequivocal hypergly cemia a plasma glucose value of >or= 126 mg/dL should be repeated on a subseq u day. Diagnosis and Classification of Diabetes Mellitus, Position Statement from the [place] [employer]. ??Diabete s Care, Volume 33, Supplement 1, May 2009 BUN 8 (L) 10 - 20 mg/dL [facility] Creatinine 0.76 (L) 0.80 - 1.50 mg/dL [facility] Sodium 136 135 - 145 mmol/L [facility] Potassium 3.9 3.5 - 5.0 mmol/L [facility] Comment: Please note: ??Patients with WBC >100,00 0 may have falsely elevated Potassium levels. ??For accurate Potassium quantif ication in these patients send serum separator tube (gold top) for subsequent determinations. ??Contact the Clinical Chemistry Laboratory if there are any qu estions. Chloride 101 98 - 107 mmol/L [facility] CO2 25 22 - 31 mmol/L [facility] Anion Gap 10 5 - 15 mmol/L [facility] Calcium 9.4 8.5 - 10.5 mg/dL [facility] Estimated GFR 95 >=60 mL/min/1.73 m?? [facility] Comment: The eGFR was calculated using the CKD-EP I equation. As with all creatinine based estimates of kidney function, eGFR values calculated with the CKD-EPI equation are not accurate in patients wi th acute kidney failure, extremes of body mass or the acutely ill. http://[employer]/[facility] [place]nkf eGFR 110 >=60 mL/min/1.73 m?? [facility] Comment: The eGFR was calculated using the CKD-EP I equation. As with all creatinine based estimates of kidney function, eGFR values calculated with the CKD-EPI equation are not accurate in patients wi th acute kidney failure, extremes of body mass or the acutely ill. http://[employer]/[facility] [place]nkf Specimen Anatomical Collection Method Collection Time Receive d Time (Source) Location / / Volume Laterality Blood specimen 03/13/2020 4:14 AM 020 4:50 (specimen) EST AM EST Resulting Agency Comment Spec In Lab Robert Grider MD CHEMISTRY ORDERABLES Performing Organization Address City/[facility]/[place] [address] (ABNORMAL) Differential, Automated (03/12/2020 4:11 AM EST) [facility] Method Time Signature Neutrophils % 66.3 % [facility] Neutr Abs (ANC) 6.84 (H) 1.70 - [facility] 6.10 [facility] x10(3)/[facility] LABORATORY Lymphocytes % 16.7 % [facility] Lymphocytes Abs 1.7 0.9 - 3.2 [facility] x10(3)/[facility] LABORATORY Monocytes % 11.2 % [facility] Monocyte Abs 1.2 (H) 0.3 - 0.9 [facility] x10(3)/[facility] LABORATORY Eosinophils % 4.9 % [facility] Eosinophils Abs 0.5 (H) 0.0 - 0.4 [facility] x10(3)/[facility] LABORATORY Basophils % 0.6 % [facility] Basophils Abs 0.1 0.0 - 0.1 [facility] x10(3)/[facility] LABORATORY Immature Gran % 0.30 % [facility] Comment: Immature granulocytes(IG's)percentage an d absolute count will include metamyelocytes, myelocytes, and promyelo cytes. Blood smears from CBCs yielding IG's will be scanned manually for concor dance. If this scan disagrees with the automated IG or if promyelocytes are not ed, a manual differential will be performed. Shannan Gran Abs 0.03 0.00 - 0.04 x10(3)/[facility]ORATORY Specimen Anatomical Collection Method Collection Time Receive d Time (Source) Location / / Volume Laterality Blood specimen 03/12/2020 4:11 AM 020 4:25 (specimen) EST AM EST Resulting Agency Comment Spec In Lab Candi Horvath MD HEMATOLOGY ORDERABLES Performing Organization Address City/[facility]/[place] [address] (ABNORMAL) Hemogram (03/12/2020 4:11 AM EST) Analysis Performed At Patho logist Time Signature WBC 10.3 (H) 4.0 - 9.5 [facility] x10(3)/[facility] LABORATORY RBC 3.85 (L) 4.58 - LOUISA LATHAMCOCK 5.54 [facility] x10(6)/[facility] LABORATORY Hemoglobin 12.2 (L) 13.7 - [facility] 16.5 gm/dL [facility] Hematocrit 36.4 (L) 40.5 - [facility] 48.5 % [facility] MCV 94.5 (H) 82.9 - [facility] 93.1 [facility] LABORATORY MCH 31.7 27.5 - [facility] 32.1 pg [facility] MCHC 33.5 32.0 - [facility] 35.[facility] gm/dL [facility] Platelets 308 145 - 357 [facility] x10(3)/[facility] LABORATORY RDWSD 46.7 (H) 36.0 - [facility] 45.0 [facility] LABORATORY RDWCV 13.5 11.4 - [facility] 13.8 % [facility] MPV 9.4 7.6 - 12.9 [facility] LABORATORY nRBC % Auto 0.0 % [facility] nRBC Abs Auto 0.000 0.000 - [facility] 0.000 [facility] x10(3)/[facility] LABORATORY Specimen Anatomical Collection Method Collection Time Receive d Time (Source) Location / / Volume Laterality Blood specimen 03/12/2020 4:11 AM 020 4:25 (specimen) EST AM EST Resulting Agency Comment Spec In Lab Candi Horvath MD HEMATOLOGY ORDERABLES Performing Organization Address City/State/[place] [address] (ABNORMAL) BMP w/fasting Glucose (03/12/2020 4:11 AM EST) P athologist Signature Glucose 77 65 - 99 [facility] Fasting mg/dL [facility] Comment: ?Fasting* Glucose Interpretive C [...] of Diabetes Mellitus, Position Statement from the [place] [employer]. ??Diabete s Care, Volume 33, Supplement 1, May 2009 BUN 7 (L) 10 - 20 mg/dL [facility] Creatinine 0.73 (L) 0.80 - 1.50 mg/dL [facility] Sodium 135 135 - 145 mmol/L [facility] Potassium 3.7 3.5 - 5.0 mmol/L [facility] Comment: Please note: ??Patients with WBC >100,00 0 may have falsely elevated Potassium levels. ??For accurate Potassium quantif ication in these patients send serum separator tube (gold top) for subsequent determinations. ??Contact the Clinical Chemistry Laboratory if there are any qu estions. Chloride 101 98 - 107 mmol/L [facility] CO2 24 22 - 31 mmol/L [facility] Anion Gap 10 5 - 15 mmol/L [facility] Calcium 9.2 8.5 - 10.5 mg/dL [facility] Estimated GFR 97 >=60 mL/min/1.73 m?? [facility] Comment: The eGFR was calculated using the CKD-EP I equation. As with all creatinine based estimates of kidney function, eGFR values calculated with the CKD-EPI equation are not accurate in patients wi th acute kidney failure, extremes of body mass or the acutely ill. [email or web address] eGFR 112 >=60 mL/min/1.73 m?? [facility] Comment: The eGFR was calculated using the CKD-EP I equation. As with all creatinine based estimates of kidney function, eGFR values calculated with the CKD-EPI equation are not accurate in patients wi th acute kidney failure, extremes of body mass or the acutely ill. [email or web address] Specimen Anatomical Collection Method Collection Time Receive d Time (Source) Location / / Volume Laterality Blood specimen 03/12/2020 4:11 AM 020 4:25 (specimen) EST AM EST Resulting Agency Comment Spec In Lab Robert Grider MD CHEMISTRY ORDERABLES Performing Organization Address City/State/[place] [address] (ABNORMAL) Differential, Automated (03/11/2020 3:51 AM EDT) [facility] Method Time Signature Neutrophils % 69.5 % [facility] Neutr Abs (ANC) 7.66 (H) 1.70 - [facility] 6.10 [facility] x10(3)/[facility] LABORATORY Lymphocytes % 14.2 % [facility] Lymphocytes Abs 1.6 0.9 - 3.2 [facility] x10(3)/[facility] LABORATORY Monocytes % 11.1 % [facility] Monocyte Abs 1.2 (H) 0.3 - 0.9 [facility] x10(3)/[facility] LABORATORY Eosinophils % 4.4 % [facility] Eosinophils Abs 0.5 (H) 0.0 - 0.4 [facility] x10(3)/[facility] LABORATORY Basophils % 0.5 % [facility] Basophils Abs 0.1 0.0 - 0.1 [facility] x10(3)/[facility] LABORATORY Immature Gran % 0.30 % [facility] Comment: Immature granulocytes(IG's)percentage an d absolute count will include metamyelocytes, myelocytes, and promyelo cytes. Blood smears from CBCs yielding IG's will be scanned manually for concor dance. If this scan disagrees with the automated IG or if promyelocytes are not ed, a manual differential will be performed. Shannan Gran Abs 0.03 0.00 - 0.04 x10(3)/[facility] Specimen Anatomical Collection Method Collection Time Receive d Time (Source) Location / / Volume Laterality Blood specimen 03/11/2020 3:51 AM 020 4:22 (specimen) EDT AM EDT Resulting Agency Comment Spec In Lab Candi Horvath MD HEMATOLOGY ORDERABLES Performing Organization Address City/State/[place] [address] (ABNORMAL) Hemogram (03/11/2020 3:51 AM EDT) Analysis Performed At Patho logist Time Signature WBC 11.0 (H) 4.0 - 9.5 [facility] x10(3)/[facility] LABORATORY RBC 3.91 (L) 4.58 - [facility] 5.54 [facility] x10(6)/[facility] LABORATORY Hemoglobin 12.3 (L) 13.7 - [facility] 16.5 gm/dL [facility] Hematocrit 37.1 (L) 40.5 - [facility] 48.5 % [facility] MCV 94.9 (H) 82.9 - [facility] 93.1 [facility] LABORATORY MCH 31.5 27.5 - [facility] 32.1 pg [facility] MCHC 33.2 32.0 - [facility] 35.7 gm/dL [facility] Platelets 316 145 - 357 [facility] x10(3)/[facility] LABORATORY RDWSD 47.2 (H) 36.0 - [facility] [place] 45.0 [facility] LABORATORY RDWCV 13.6 11.4 - [facility] 13.8 % [facility] MPV 9.3 7.6 - 12.9 [facility] LABORATORY nRBC % Auto 0.0 % [facility] nRBC Abs Auto 0.000 0.000 - [facility] [place] 0.000 [facility] x10(3)/[facility] LABORATORY Specimen Anatomical Collection Method Collection Time Receive d Time (Source) Location / / Volume Laterality Blood specimen 03/11/2020 3:51 AM 020 4:22 (specimen) EDT AM EDT Resulting Agency Comment Spec In Lab Candi Horvath MD HEMATOLOGY ORDERABLES Performing Organization Address City/State/[place] [address] (ABNORMAL) BMP w/fasting Glucose (03/11/2020 3:51 AM EDT) athologist Signature Glucose 80 65 - 99 [facility] Fasting mg/dL [facility] Comment: ?Fasting* Glucose Interpretive C [...] of Diabetes Mellitus, Position Statement from the [place] [employer]. ??Diabete s Care, Volume 33, Supplement 1, May 2009 BUN 8 (L) 10 - 20 mg/dL [facility] Creatinine 0.77 (L) 0.80 - 1.50 mg/dL [facility] Sodium 133 (L) 135 - 145 mmol/L [facility] Potassium 3.9 3.5 - 5.0 mmol/L [facility] Comment: Please note: ??Patients with WBC >100,00 0 may have falsely elevated Potassium levels. ??For accurate Potassium quantif ication in these patients send serum separator tube (gold top) for subsequent determinations. ??Contact the Clinical Chemistry Laboratory if there are any qu estions. Chloride 98 98 - 107 mmol/L [facility] CO2 26 22 - 31 mmol/L [facility] Anion Gap 9 5 - 15 mmol/L [facility] Calcium 9.2 8.5 - 10.5 mg/dL [facility] Estimated GFR 95 >=60 mL/min/1.73 m?? [facility] Comment: The eGFR was calculated using the CKD-EP I equation. As with all creatinine based estimates of kidney function, eGFR values calculated with the CKD-EPI equation are not accurate in patients wi th acute kidney failure, extremes of body mass or the acutely ill. http://[employer]/[facility] [place] CITYnkf eGFR 110 >=60 mL/min/1.73 m?? [facility] Comment: The eGFR was calculated using the CKD-EP I equation. As with all creatinine based estimates of kidney function, eGFR values calculated with the CKD-EPI equation are not accurate in patients wi th acute kidney failure, extremes of body mass or the acutely ill. [email or web address] Specimen Anatomical Collection Method Collection Time Receive d Time (Source) Location / / Volume Laterality Blood specimen 03/11/2020 3:51 AM 020 4:22 (specimen) EDT AM EDT Resulting Agency Comment Spec In Lab Robert Grider MD CHEMISTRY ORDERABLES Performing Organization Address City/State/[place] [address] XR Foot 2 views [...] For questions regarding this report, please contact souleymane nicholson below. ? Electronically signed by: DAVIDE LÓPEZ [facility] ([phone]), at 03/11/2020 2:41 PM Narrative 03/11/2020 2:41 PM EDT EXAMINATION: XR [...] this report, please contact e number below. Electronically signed by: DAVIDE LÓPEZ [facility] ([phone]), at 03/11/2020 2:41 PM Robert Grider MD IMG DX ORDERABLES (ABNORMAL) Anaerobic Culture (03/10/2020 4:49 PM EDT) [facility] Method Time Signature Anaerobic Rare LOUISA Culture Prevotella [place] species (A) [facility] Organism Prevotella LOUISA species (A) [facility]OR[facility] Specimen Anatomical Collection Method Collection Time Receive d Time (Source) Location / / Volume Laterality Joint sample STRUCTURE OF LEFT 03/10/2020 4:49 PM 02/11 4:49 (specimen) FOOT / Unknown EDT PM EDT Comment: LEFT 4TH RAY,PROXIMAL BONE CULT URE # 2 Resulting Agency Comment Spec In Lab Geovanna Lewis MD MICROBIOLOGY - GENERAL ORDER SILAS Performing Organization Address City/[facility]/[place] [address] (ABNORMAL) Joint Culture (03/10/2020 4:49 PM EDT) Component Value Ref Test Analysis Performed At [facility] Range Method Time Signature Joint Coagulase negative Staphylococcus species isolated from br oth culture. LOUISA Culture Susceptibilities previously reported [place] No growth on original plates. [facility] Gram Stain No Neutrophils seen. LOUISA No microorganisms seen. [facility] OCK () [facility] Organism Coagulase negative LOUISA Staphylococcus EDGAR species (A) [facility] Specimen Anatomical Collection Method Collection Time Receive d Time (Source) Location / / Volume Laterality Joint sample STRUCTURE OF LEFT 03/10/2020 4:49 PM 02/11 4:49 (specimen) FOOT / Unknown EDT PM EDT Comment: LEFT 4TH RAY,PROXIMAL BONE CULT URE # 2 Resulting Agency Comment Spec In Lab Geovanna Lewis MD MICROBIOLOGY - GENERAL ORDER SILAS Performing Organization Address City/[facility]/[place] [address] (ABNORMAL) Anaerobic Culture (03/10/2020 4:49 PM EDT) [facility] Method Time Signature Anaerobic One colony of LOUISA Culture Prevotella [place] species (A) [facility] Organism Prevotella LOUISA species (A) [facility] LABOR[facility] Specimen Anatomical Collection Method Collection Time Receive d Time (Source) Location / / Volume Laterality Joint sample STRUCTURE OF LEFT 03/10/2020 4:49 PM 02/11 4:49 (specimen) FOOT / Unknown EDT PM EDT Comment: LEFT 4TH RAY,PROXIMAL BONE CULT URE # 1 Resulting Agency Comment Spec In Lab Geovanna Lewis MD MICROBIOLOGY - GENERAL ORDER SILAS Performing Organization Address City/[facility]/[place] [address] (ABNORMAL) Anaerobic Culture (03/10/2020 4:49 PM EDT) [facility] Method Time Signature Anaerobic Rare Bacteroides fragilis Group LOUISA Culture Few Bacteroides species [facility] () [facility] Organism Bacteroides L[place]ISA fragilis Group [place] ([facility] LAB[facility] Organism Bacteroides LOUISA species (A) [facility]OR[facility] Specimen Anatomical Collection Method Collection Time Receive d Time (Source) Location / / Volume Laterality Joint sample STRUCTURE OF LEFT 03/10/2020 4:49 PM 02/11 4:49 (specimen) FOOT / Unknown EDT PM EDT Comment: LEFT 4TH RAY, INFECTED BONE CUL TURE # 2 Resulting Agency Comment Spec In Lab Geovanna Lewis MD MICROBIOLOGY - GENERAL ORDER SILAS Performing Organization Address City/[facility]/[place] [address] (ABNORMAL) Joint Culture (03/10/2020 4:49 PM EDT) Component Value Ref Test Analysis Performed At [facility] Range Method Time Signature Joint Rare Pasteurella multocida MAR Y Culture Rare Streptococcus milleri, anginosis group : Susceptibilities previously [facility] LABORATORY Gram Stain Many Neutrophils seen LOUISA Rare Gram Positive Cocci seen [place] Results called to and read back by DR. VILLAGOMEZ [facility] Organism Pasteurella LOUISA multocida () [facility] LABOR[facility] Organism Streptococcus L[place]ISA milleri, anginosis [place] group () [facility] Organism Gram Positive Cocci [facility] (A) [facility] LABOR[facility] Specimen Anatomical Collection Method Collection Time Receive d Time (Source) Location / / Volume Laterality Joint sample STRUCTURE OF LEFT 03/10/2020 4:49 PM 02/11 4:49 (specimen) FOOT / Unknown EDT PM EDT Comment: LEFT 4TH RAY, INFECTED BONE CUL TURE # 2 Resulting Agency Comment Spec In Lab Geovanna Lewis MD MICROBIOLOGY - GENERAL ORDER SILAS Performing Organization Address City/[facility]/[place] [address] (ABNORMAL) Anaerobic Culture (03/10/2020 4:48 PM EDT) [facility] Method Time Signature Anaerobic Rare LOUISA Culture Prevotella [place] species (A) [facility] Organism Prevotella LOUISA species (A) [facility] LAB[facility]ORY Specimen Anatomical Collection Method Collection Time [...] Organization Address City/State/[place] [address] (ABNORMAL) Joint Culture (03/10/2020 4:48 PM EDT) Component Value Ref Test Analysis Performed At [facility] Range Method Time Signature Joint Rare Streptococcus milleri, anginosis gr oup : Susceptibilities previously [facility] Culture reported [place] Coagulase negative Staphylococcus species isolated from br oth culture. [facility] Gram Stain Few Neutrophils seen LOUISA No microorganisms seen. [facility] OCK (A) [facility] Organism Coagulase negative LOUISA Staphylococcus [place] species (A) [facility] Organism Streptococcus LOUISA milleri, anginosis [place] group () [facility] Specimen Anatomical Collection Method Collection [...] Comment: Gentamicin is not a ppropriate for [place]-therapy. Coagulase negative staphylococcus Levofloxacin MICROSCAN METH OD Sensitive species Coagulase negative staphylococcus Oxacillin MICROSCAN METH OD Resistant species Coagulase negative staphylococcus Tetracycline MICROSCAN METH OD Sensitive species Coagulase negative staphylococcus Trimethoprim/Sulfa MICROSCAN M ETHOD Sensitive species Coagulase negative staphylococcus Vancomycin MICROSCAN METH OD Sensitive species Geovanna Lewis MD MICROBIOLOGY - GENERAL ORDER SILAS Performing Organization Address City/[facility]/[place] [address] (ABNORMAL) Joint Culture (03/10/2020 4:48 PM EDT) Component Value Ref Test Analysis Performed At [facility] Range Method Time Signature Joint Peptostreptococcus anaerobius isolated from broth culture. LOUISA Culture No growth on original plates. [facility] LABORATORY Gram Stain No Neutrophils seen. LOUISA No microorganisms seen. [facility] OCK () [facility] Organism Peptostreptococcus L[place]ISA anaerobius (A) [facility] LAB[facility] Specimen Anatomical Collection Method Collection Time Receive d Time (Source) Location / / Volume Laterality Joint sample STRUCTURE OF LEFT 03/10/2020 4:48 PM 02/11 4:48 (specimen) FOOT / Unknown EDT PM EDT Comment: LEFT 4TH RAY,PROXIMAL BONE CULT URE # 1 Resulting Agency Comment Spec In Lab Geovanna Lewis MD MICROBIOLOGY - GENERAL ORDER SILAS Performing Organization Address City/[facility]/[place] [address] (ABNORMAL) Anaerobic Culture (03/10/2020 4:48 PM EDT) Component Value Ref Test Analysis Performed At [facility] Method Time Signature Anaerobic Few Bacteroides fragilis Group [place] Culture Moderate Bacteroides species [facility] Susceptibilities performed by request only [facility] ([facility] Organism Bacteroides [place] fragilis Group (A) [facility]OR[facility] Organism Bacteroides species [place] (A) [facility] Specimen Anatomical Collection Method Collection Time Receive d Time (Source) Location / / Volume Laterality Joint sample STRUCTURE OF LEFT 03/10/2020 4:48 PM 02/11 4:48 (specimen) FOOT / Unknown EDT PM EDT Comment: LEFT 4TH RAY, INFECTED BONE CUL TURE # 3 Resulting Agency Comment Spec In Lab Geovanna Lewis MD MICROBIOLOGY - GENERAL ORDER SILAS Performing Organization Address City/[facility]/[place] [address] (ABNORMAL) Joint Culture (03/10/2020 4:48 PM EDT) Component Value Ref Test Analysis Performed At [facility] gist Range Method Time Signature Joint Culture Few Pasteurella multocida [facility] Beta-lactamase result predicts organism is susceptible to ampicillin and [place] penicillin. [facility] Few Streptococcus milleri, anginosis group [facility] Rare Enterococcus faecalis LAB ORATORY (A) Gram Stain Many Neutrophils seen [facility] Moderate Gram Positive Cocci seen [place] Moderate Gram Negative Rods seen [facility] Rare Gram Positive Rods seen [facility] Results called to and read back by DR. VILLAGOMEZ LABORATORY (A) Organism Streptococcus [place] milleri, [place] anginosis group [facility] () [facility] LABORATORY Organism Enterococcus [place] faecalis (A) [facility] Organism Pasteurella [facility] multocida (A) [facility] Organism Gram Positive [facility] Cocci (A) [facility] Organism Gram Negative [facility] Rods (A) [facility] Organism Gram Positive [facility] Rods (A) [facility] Specimen Anatomical Collection Method Collection Time [...] Organization Address City/State/[place] [address] (ABNORMAL) Anaerobic Culture (03/10/2020 4:47 PM EDT) [facility] Method Time Signature Anaerobic Few Bacteroides fragilis Group [place] Culture Moderate Bacteroides species [facility] () [facility] LABORATORY Organism Bacteroides [place] fragilis Group [place] ([facility] LAB[facility] Organism Bacteroides [place] species (A) [facility] LAB[facility] Specimen Anatomical Collection Method Collection Time [...] Organization Address City/State/ZIP Code Phon e Number [place] [id number] (ABNORMAL) Joint Culture (03/10/2020 4:47 PM EDT) Component Value Ref Test Analysis Performed At [facility] [place] Range Method Time Signature Joint Rare Pasteurella multocida Beta-lactamase result previousl y reported. [place] Culture Few Streptococcus milleri, a nginosis group Susceptibilities previously reported [place] Rare Jesika albicans [facility] LAB[facility]ORY Gram Stain Many Neutrophils seen [facility] Moderate Gram Positive Cocci seen [place] Rare Gram Negative Rods seen [facility] Results called to and read back by ANKUR RITCHIE () LABORATORY Organism Jesika albicans [facility] () [facility] LAB[facility] Organism Pasteurella [place] multocida () [facility] LAB[facility] Organism Streptococcus [place] milleri, anginosis [place] group () [facility] LABORATORY Organism Gram Positive Cocci [facility] (A) [facility] LAB[facility] Organism Gram Negative Rods [facility] (A) [facility] LAB[facility] Specimen Anatomical Collection Method Collection Time [...] Organization Address City/State/[place] [address] (ABNORMAL) Differential, Automated (03/10/2020 8:02 AM EDT) [facility] Method Time Signature Neutrophils % 74.1 % [facility]OR[facility]ORY Neutr Abs (ANC) 7.77 (H) 1.70 - [facility] 6.10 [facility] x10(3)/[facility] LABORATORY Lymphocytes % 13.6 % [facility]OR[facility]ORY Lymphocytes Abs 1.4 0.9 - 3.2 [facility] x10(3)/[facility] LABORATORY Monocytes % 8.1 % [facility] Monocyte Abs 0.8 0.3 - 0.9 [facility] x10(3)/[facility] LABORATORY Eosinophils % 2.7 % [facility] Eosinophils Abs 0.3 0.0 - 0.4 [facility] x10(3)/[facility] LABORATORY Basophils % 0.6 % [facility] Basophils Abs 0.1 0.0 - 0.1 [facility] x10(3)/[facility] LABORATORY Immature Gran % 0.90 % [facility] Comment: Immature granulocytes(IG's)percentage an d absolute count will include metamyelocytes, myelocytes, and promyelo cytes. Blood smears from CBCs yielding IG's will be scanned manually for concor dance. If this scan disagrees with the automated IG or if promyelocytes are not ed, a manual differential will be performed. Shannan Gran Abs 0.09 (H) 0.00 - 0.04 x10(3)/[facility] LABORATORY Specimen Anatomical Collection Method Collection Time Receive d Time (Source) Location / / Volume Laterality Blood specimen 03/10/2020 8:02 AM 020 8:07 (specimen) EDT AM EDT Resulting Agency Comment Spec In Lab Chioma Patterson MD HEMATOLOGY ORDERABLES Performing Organization Address City/State/[place] [address] (ABNORMAL) Hemogram (03/10/2020 8:02 AM EDT) Analysis Performed At Patho logist Time Signature WBC 10.5 (H) 4.0 - 9.5 [place] x10(3)/[facility] LABORATORY RBC 4.51 (L) 4.58 - [place] 5.54 [facility] x10(6)/[facility] LABORATORY Hemoglobin 13.8 13.7 - [place] 16.5 gm/dL [facility] LABORATORY Hematocrit 42.4 40.5 - [place] 48.5 % [facility] LABORATORY MCV 94.0 (H) 82.9 - [place] 93.1 [facility] LABORATORY MCH 30.6 27.5 - [place] 32.1 pg [facility] LABORATORY MCHC 32.5 32.0 - [facility] 35.7 gm/dL [facility] LABORATORY Platelets 331 145 - 357 [facility] x10(3[facility] LABORATORY RDWSD 45.6 (H) 36.0 - [facility] EDGAR 45.0 [facility] LABORATORY RDWCV 13.3 11.4 - [place] 13.8 % [facility] LABORATORY MPV 9.2 7.6 - 12.9 [facility] EDGAR [facility] LABORATORY nRBC % Auto 0.0 % [facility] LABORATORY nRBC Abs Auto 0.000 0.000 - [place] [facility] 0.000 [facility] x10(3)/[facility] LABORATORY Specimen Anatomical Collection Method Collection Time Receive d Time (Source) Location / / Volume Laterality Blood specimen 03/10/2020 8:02 AM 020 8:07 (specimen) EDT AM EDT Resulting Agency Comment Spec In Lab Chioma Patterson MD HEMATOLOGY ORDERABLES Performing Organization Address City/State/[place] [address] [facility] [address] APTT (03/10/2020 8:02 AM EDT) P athologist Signature PTT 34 25 - [address] [facility]ORY Comment: The PTT is NOT appropriate [...] Grider MD HEMATOLOGY ORDERABLES Performing Organization Address City/[facility] [place] [address] (ABNORMAL) Prothrombin Time (03/10/2020 8:02 AM EDT) athologist Signature PT 12.9 (H) 9.4 - 12.5 [facility] LABORATORY INR 1.1 [facility] LABOR[facility]ORY Comment: An INR <2.0 indicates adequate [...] Grider MD HEMATOLOGY ORDERABLES Performing Organization Address City/[facility] [place] [address] (ABNORMAL) Basic Metabolic Panel (non-fasting) (03/10/2020 8:02 AM EDT) P athologist Signature Glucose Lvl 112 65 - 199 [facility] mg/dL [facility] LABORATORY Comment: Diabetes: >=200 mg/dL plus symp toms BUN 6 (L) 10 - 20 mg/dL [facility] LABORATORY Creatinine 0.74 (L) 0.80 - 1.50 mg/dL [facility] LABORATORY Sodium 136 135 - 145 mmol/L [facility] LABORATORY Potassium 4.0 3.5 - 5.0 mmol/L [facility] LABORATORY Comment: Please note: ??Patients with WBC >100,00 0 may have falsely elevated Potassium levels. ??For accurate Potassium quantif ication in these patients send serum separator tube (gold top) for subsequent determinations. ??Contact the Clinical Chemistry Laboratory if there are any qu estions. Chloride 99 98 - 107 mmol/L [facility] CO2 27 22 - 31 mmol/L [facility] Anion Gap 10 5 - 15 mmol/L [facility] LABORATORY Calcium 9.8 8.5 - 10.5 mg/dL [facility] LABORATORY Estimated GFR 96 >=60 mL/min/1.73 m?? [facility] Comment: The eGFR was calculated using the CKD-EP I equation. As with all creatinine based estimates of kidney function, eGFR values calculated with the CKD-EPI equation are not accurate in patients wi th acute kidney failure, extremes of body mass or the acutely ill. [email or web address] eGFR 111 >=60 mL/min/1.73 m?? [facility] Comment: The eGFR was calculated using the CKD-EP I equation. As with all creatinine based estimates of kidney function, eGFR values calculated with the CKD-EPI equation are not accurate in patients wi th acute kidney failure, extremes of body mass or the acutely ill. [email or web address] Specimen Anatomical Collection Method Collection Time Receive d Time (Source) Location / / Volume Laterality Blood specimen 03/10/2020 8:02 AM 020 8:07 (specimen) EDT AM EDT Resulting Agency Comment Spec In Lab Robert Grider MD CHEMISTRY ORDERABLES Performing Organization Address City/State/[place] [address] Blood culture (03/09/2020 8:59 PM EDT) Patholo gist Method Time Signature Blood Culture No growth [place] MONTANO at 5 days. [facility] LABORATORY Specimen Anatomical Collection Method Collection Time Receive d Time (Source) Location / / Volume Laterality Blood specimen 03/09/2020 8:59 PM 020 9:40 (specimen) EDT PM EDT Resulting Agency Comment Spec In Lab Robert Grider MD MICROBIOLOGY - BLOOD ORDERAB LES Performing Organization Address [facility] [place] [address] Blood culture (03/09/2020 8:59 PM EDT) [facility] gist Method Time Signature Blood Culture No growth L[place]ISA MONTANO at 5 days. [facility] LABORATORY Specimen Anatomical Collection Method Collection Time Receive d Time (Source) Location / / Volume Laterality Blood specimen 03/09/2020 8:59 PM 020 9:40 (specimen) EDT PM EDT Resulting Agency Comment Spec In Lab Robert Grider MD MICROBIOLOGY - BLOOD ORDERAB LES Performing Organization Address [facility] [place] [address] EKG 12 Lead (03/09/2020 6:45 PM EDT) Component Value Ref Range Test Analysis Performed Pathologis t Method Time At Signature Ventricular rate 63 BPM MUSE SYSTEM Atrial Rate 63 BPM MUSE SYSTEM P-R Interval 168 ms MUSE SYSTEM QRS Duration 62 ms MUSE SYSTEM Q-T Interval 452 ms MUSE SYSTEM QTC Calculated 462 ms MUSE SYSTEM (Bezet) Calculated P [place] 58 degrees MUSE SYSTEM Calculated R [place] 17 degrees MUSE SYSTEM Calculated T [place] 42 degrees MUSE SYSTEM INTERPRETATION Normal sinus [...] Grider MD ECG ORDERABLES Performing Organization Address [facility]/ZIP Code Phon e Number MUSE SYSTEM XR [...] report, please contact e number below. ? Electronically signed by: Alvin Leyva, [facility] ([phone]), at 03/09/2020 4:55 PM Narrative 03/09/2020 4:55 PM EDT EXAMINATION: XR [...] For questions regarding this report, please contact health system number below. Gerhard Bright MD IMG DX ORDERABLES COVID-19 PCR (03/09/2020 4:12 PM EDT) [facility] Method Time Signature SARS-CoV-2 Not Detected Not Detected [place] RNA PCR [facility] LABORATORY Comment: This result should be interpreted [...] using the Simplexa COVID-19 Direct Assay by [employer]enturesjose bella as authorized by the FDA issued [...] Department of Pathology and Laboratory Medicine at [facility], certified under the Clinical Laboratory Improvement Amendmen [...] clinical management guidance information are available at health system CDC Coronavirus Disease 2019 (COVID-19) webpage under Information fo r Healthcare Professionals (https://www.cdc.gov/coronavirus/2019-nc ov/hcp/index.html). SARS-CoV-2 Source DATA MODELING ARCHITECT Swab [facility] LABORATORY Specimen (Source) Anatomical Collection Method Collection Time Re ceived Time Location / / Volume Laterality Nasopharyngeal swab 03/09/2020 4:12 03/09 (specimen) PM EDT 4:40 PM EDT Comment: Symptoms->Surveillance Resulting Agency Comment Spec In Lab Gerhard Chadwick DO MICROBIOLOGY - GENERAL ORDER SILAS Performing Organization Address City/[facility]/ZIP Code Phon e Number [address] ABORH Recheck Status (03/09/2020 3:50 PM EDT) [facility] Method Time Signature ABORH Type Completed [facility] LABORATORY Specimen Anatomical Collection Method Collection Time Receive d Time (Source) Location / / Volume Laterality Blood specimen 03/09/2020 3:50 PM 020 4:05 (specimen) EDT PM EDT Resulting Agency Comment Spec In Lab Pedrito Coronel MD BLOOD BANK ORDERABLES Performing Organization Address City/[facility]/[place] [address] Antibody screen (03/09/2020 3:50 PM EDT) [employer] Method Time Signature Ab Screen Negative [facility] LABORATORY Expires at 03/12/2020 [facility] on: [facility] LABORATORY Specimen Anatomical Collection Method Collection Time Receive d Time (Source) Location / / Volume Laterality Blood specimen 03/09/2020 3:50 PM 020 4:05 (specimen) EDT PM EDT Resulting Agency Comment Spec In Lab Pedrito Coronel MD BLOOD BANK ORDERABLES Performing Organization Address City/[facility]/[place] [address] ABO/Rh Typing (03/09/2020 3:50 PM EDT) P athologist Signature ABORh Type A Pos [facility] LABORATORY Specimen Anatomical Collection Method Collection Time Receive d Time (Source) Location / / Volume Laterality Blood specimen 03/09/2020 3:50 PM 020 4:05 (specimen) EDT PM EDT Resulting Agency Comment Spec In Lab Pedrito Coronel MD BLOOD BANK ORDERABLES Performing Organization Address City/[facility]/[place] [address] APTT (03/09/2020 3:50 PM EDT) P athologist Signature PTT 31 25 - [address] [facility] Comment: The PTT is NOT appropriate [...] Chadwick DO HEMATOLOGY ORDERABLES Performing Organization Address City/[facility]/[place] [address] MRI Foot wo Contrast [...] report, please contact e number below. ? Electronically signed by: Gordon Monsivais MD , [facility] ([phone]), at 03/09/2020 3:21 PM Narrative 03/09/2020 3:21 PM EDT EXAMINATION: MRI [...] EDT) athologist Signature Gold Hold Sample in [facility]. [facility] LABORATORY Specimen Anatomical Collection Method Collection Time Receive d Time (Source) Location / / Volume Laterality Blood specimen Venous Draw / 03/09/2020 9:15 AM 2019 3:14 (specimen) Unknown EDT PM EDT Pedrito Coronel MD CHEMISTRY ORDERABLES Performing Organization Address City/State/[place] [address] (ABNORMAL) Differential, Automated (03/09/2020 9:15 AM EDT) [facility] Method Time Signature Neutrophils % 71.5 % [facility] LABORATORY Neutr Abs (ANC) 9.83 (H) 1.70 - [facility] 6.10 [facility] x10(3)/[facility] LABORATORY Lymphocytes % 12.7 % [facility] Lymphocytes Abs 1.7 0.9 - 3.2 [facility] x10(3)/[facility] LABORATORY Monocytes % 11.0 % [facility] LABORATORY Monocyte Abs 1.5 (H) 0.3 - 0.9 [facility] x10(3)/[facility] LABORATORY Eosinophils % 3.7 % [facility]ORY Eosinophils Abs 0.5 (H) 0.0 - 0.4 [facility] x10(3)/[facility] LABORATORY Basophils % 0.5 % [facility] Basophils Abs 0.1 0.0 - 0.1 [facility] x10(3)/[facility] LABORATORY Immature Gran % 0.60 % [facility] Comment: Immature granulocytes(IG's)percentage an d absolute count will include metamyelocytes, myelocytes, and promyelo cytes. Blood smears from CBCs yielding IG's will be scanned manually for concor dance. If this scan disagrees with the automated IG or if promyelocytes are not ed, a manual differential will be performed. Shannan Gran Abs 0.08 (H) 0.00 - 0.04 x10(3)/[facility] LABORATORY Specimen Anatomical Collection Method Collection Time Receive d Time (Source) Location / / Volume Laterality Blood specimen 03/09/2020 9:15 AM 020 3:12 (specimen) EDT PM EDT Resulting Agency Comment Spec In Lab Pedrito Coronel MD HEMATOLOGY ORDERABLES Performing Organization Address City/State/[place] [address] (ABNORMAL) Hemogram (03/09/2020 9:15 AM EDT) Analysis Performed At Patho logist Time Signature WBC 13.7 (H) 4.0 - 9.5 [facility] x10(3[facility] LABORATORY RBC 4.31 (L) 4.58 - [facility] EDGAR 5.54 [facility] x10(6)/[facility] LABORATORY Hemoglobin 13.3 (L) 13.7 - [facility] 16.5 gm/dL [facility] LABORATORY Hematocrit 41.3 40.5 - [facility] 48.5 % [facility] LABORATORY MCV 95.8 (H) 82.9 - [facility] 93.1 [facility] LABORATORY MCH 30.9 27.5 - [place] 32.1 pg [facility] LABORATORY MCHC 32.2 32.0 - [place] ED[place] 35.7 gm/dL [facility] LABORATORY Platelets 364 (H) 145 - 357 [facility] x10(3)/[facility] LABORATORY RDWSD 48.2 (H) 36.0 - [facility] EDGAR 45.0 [facility] LABORATORY RDWCV 13.5 11.4 - [facility] 13.8 % [facility] LABORATORY MPV 10.1 7.6 - 12.9 [facility] LAB[facility] nRBC % Auto 0.0 % [facility] LABORATORY nRBC Abs Auto 0.000 0.000 - [facility] 0.000 [facility] x10(3)/[facility] LABORATORY Specimen Anatomical Collection Method Collection Time Receive d Time (Source) Location / / Volume Laterality Blood specimen 03/09/2020 9:15 AM 020 3:12 (specimen) EDT PM EDT Resulting Agency Comment Spec In Lab Pedrito Coronel MD HEMATOLOGY ORDERABLES Performing Organization Address City/State/[place] [address] (ABNORMAL) Prothrombin Time (03/09/2020 9:15 AM EDT) athologist Signature PT 12.9 (H) 9.4 - 12.5 [facility] LABORATORY INR 1.1 [facility] LABORATORY Comment: An INR <2.0 indicates adequate [...] Organization Address City/State/ZIP Code Phon e Number [address] Hemoglobin A1c (03/09/2020 9:15 AM [...] Mellitus, Diabetes Care 2013; 36: Suppl. 1, S67-96 Est Avg Gluc 113 mg/dL [facility] LABORATORY Comment: eAG equivalents for HbA1c percentages: HbA1c(%) ?eAG(mg/dL) 6.0 ?126 6.5 ?140 7.0 ?154 7.5 ?169 8.0 ?183 8.5 ?197 9.0 ?212 9.5 ?226 10.0 ? 240 Limitations: The eAG calculation has not been validated on women, individuals below 18 years old and above 70 years old, and individuals with hemoglobinopathies. Additional resources are available on health system ADA website. David ARORA, Vidal J, Rony R, et al. ??Tr anslating the A1C assay into estimated average glucose values. ??Diabetes Care 2008:31(8):8131-9557. Specimen Anatomical Collection Method Collection Time Receive d Time (Source) Location / / Volume Laterality Blood specimen 03/09/2020 9:15 AM 020 3:12 (specimen) EDT PM EDT Resulting Agency Comment Spec In Lab Carlos Bourne MD CHEMISTRY ORDERABLES Performing Organization Address City/[facility]/[place] [address] (ABNORMAL) CRP, acute inflammation (03/09/2020 9:15 AM EDT) athologist Signature CRP 102.6 (H) <=4.9 mg/L [facility] LABORATORY Specimen Anatomical Collection Method Collection Time Receive d Time (Source) Location / / Volume Laterality Blood specimen 03/09/2020 9:15 AM 020 3:12 (specimen) EDT PM EDT Resulting Agency Comment Spec In Lab Carlos Bourne MD CHEMISTRY ORDERABLES Performing Organization Address City/[facility] [place] [address] (ABNORMAL) Sedimentation rate (03/09/2020 9:15 AM EDT) athologist Signature Sed Rate 106 (H) 2 - 37 [facility] mm/hr [facility] LABORATORY Comment: Effective April 21, 2019 [...] Organization Address City/State/[place] [address] (ABNORMAL) Basic Metabolic Panel (non-fasting) (03/09/2020 9:15 AM EDT) athologist Signature Glucose Lvl Not Perf 65 - 199 [facility] LABORATORY Comment: Sample improperly processed prior to rec eipt. Called by: gracia , Read back by: mali brown , Date/Time:03/09/20 15:56. Diabetes: >=200 mg/dL plus symptoms BUN 7 (L) 10 - 20 mg/dL [facility] LABORATORY Creatinine 0.94 0.80 - 1.50 mg/dL [facility] LABORATORY Sodium 133 (L) 135 - 145 mmol/L [facility] LABORATORY Potassium Not Perf 3.5 - 5.0 [facility] Comment: Sample improperly processed prior to rec eipt. Called by: gracia , Read back by: mali brown , Date/Time:03/09/20 15:56. Please note: ??Patients with WBC >100,00 0 may have falsely elevated Potassium levels. ??For accurate Potassium quantif ication in these patients send serum separator tube (gold top) for subsequent determinations. ??Contact the Clinical Chemistry Laboratory if there are any qu estions. Chloride 93 (L) 98 - 107 mmol/L [facility] CO2 27 22 - 31 mmol/L [facility] Anion Gap 13 5 - 15 mmol/L [facility] Calcium 10.0 8.5 - 10.5 mg/dL [facility] Estimated GFR 84 >=60 mL/min/1.73 m?? [facility] Comment: The eGFR was calculated using the CKD-EP I equation. As with all creatinine based estimates of kidney function, eGFR values calculated with the CKD-EPI equation are not accurate in patients wi th acute kidney failure, extremes of body mass or the acutely ill. http://[employer]/[facility] [place] eGFR 98 >=60 mL/min/1.73 m?? [facility] Comment: The eGFR was calculated using the CKD-EP I equation. As with all creatinine based estimates of kidney function, eGFR values calculated with the CKD-EPI equation are not accurate in patients wi th acute kidney failure, extremes of body mass or the acutely ill. http://[employer]/[facility] [place] Specimen Anatomical Collection Method Collection Time Receive d Time (Source) Location / / Volume Laterality Blood specimen 03/09/2020 9:15 AM 020 3:12 (specimen) EDT PM EDT Resulting Agency Comment Spec In Lab Carlos Bourne MD CHEMISTRY ORDERABLES Performing Organization Address City/State/[place] [address] Duplex for DVT, Leg, Unilat (03/09/2020 9:09 AM EDT) Component Value Ref Test Analysis Performed At [facility] Range Method Time Signature VB Text Department: Vascular Surgery Lab VASCUBASE Report Patient: [id number] (SOLEDAD RAMOS) CPT: 46742 ICD10: M79.89 Referring Physician: GERHARD BRIGHT ?? [...] VASCUBASE documented in this encounter Visit Diagnoses Not on filedocumented in this encounter Admitting Diagnoses Diagnosis Osteomyelitis Unspecified osteomyelitis, site unspecif ied documented in this encounter Administered Medications Inactive Administered Medications - up to 3 most recent administrations Medication Order MAR Action Action Date Dose Rate Site acetaminophen (Tylenol) tablet 650 Given 03/13/2020 8:05 PM EST 650 mg mg 650 mg, Oral, EVERY 6 HOURS PRN, Starting on Fri03/09/20 at 1830, Until Fri03/14/20 at 1658, Pain, [...] 0314, Until Fri03/14/20 at 1658, Heartburn, Routine cefTRIAXone (ROCEPHIN) 2 g vial attach Restarted 03/14/2020 2:28 PM EST 100 mL/hr to sodium chloride 0.9% 50 mL Mini-Bag Plus 2 g, Intravenous, EVERY 24 HOURS, First dose (after last modification) on Fri03/14/20 at 1215, Until Discontinued, Administer over 30 Minutes, Indication for (Active or Suspected): Bone/Joint New Bag 03/14/2020 11:57 AM EST 2 g 100 mL/hr enoxaparin (LOVENOX) injection 40 mg Given 03/13/2020 4:12 PM EST 40 mg 40 mg, Subcutaneous, EVERY EVENING, First dose on Fri03/10/20 at 1700, Until Discontinued, Routine Given 03/12/2020 4:29 PM EST 40 mg Given 03/11/2020 4:34 PM EDT 40 mg gabapentin (Neurontin) capsule 600 mg Given 03/14/2020 [...] Until Fri03/14/20 at 1658, Pain, mild pain (1-3), May give an additional 0.2 mg in 30 minutes once if pain not relieved., Routine HYDROmorphone (DILAUDID) injection 0.4 m g Given 03/12/2020 9:25 PM EST 0.4 mg 0.4 mg, Intravenous, EVERY 4 HOURS PRN, Starting on 03/11/20 at 1427, Until Fri03/14/20 at 1658, Pain, moderate pain (4-6), May give an additional 0.2 mg in 30 minutes once if pain not relieved., Routine HYDROmorphone (DILAUDID) injection 0.6 m g Given 03/11/2020 4:34 PM EDT 0.6 mg 0.6 mg, Intravenous, EVERY 4 HOURS PRN, Starting on Fri03/11/20 at 1427, Until Fri03/14/20 at 1658, Pain, severe pain (7-10), May give an additional 0.2 mg in 30 minutes once if pain not relieved., Routine lisinopriL (Prinivil;Zestril) tablet 40 mg Given 03/14/2020 8:22 AM EST 40 mg 40 mg, Oral, DAILY, First dose (after last modification) on Fri03/14/20 at 0900, Until Discontinued, Routine melatonin tablet 3 mg Given 03/09/2020 [...] 0951, Until Fri03/14/20 at 1658, Nausea, Routine metroNIDAZOLE (Flagyl) tablet 500 mg Given 03/14/2020 2:52 PM EST 500 mg 500 mg, Oral, 3 TIMES DAILY, First dose on 03/11/20 at 1500, Until Discontinued, Routine Given 03/14/2020 8:23 AM EST 500 mg Given 03/13/2020 8:06 PM EST 500 mg nicotine (NICODERM CQ) Patch Applied 03/14/2020 8:26 AM 21 mg 04- Shoulder 21 mg/24 hr patch 21 mg EST (Right) 21 mg (1 patch), Transdermal, DAILY, First dose on Fri03/09/20 at 1900, Until Discontinued, [...] 25 mg, Oral, NIGHTLY PRN, Starting on 03/09/20 at 2337, Until Fri03/14/20 at 1658, Agitation, Routine sodium chloride 0.9 % (flush) flush 5 mL Given 03/14/2020 8:27 AM EST 5 mLs 5 mL, Intravenous, 2 TIMES DAILY, First dose on Fri03/09/20 at 2100, Until Discontinued, Routine Given 03/13/2020 8:06 PM EST 5 mLs Given 03/13/2020 8:24 AM EST 5 mLs thiamine (Vitamin B1) tablet 100 mg Given 03/14/2020 8:22 AM EST 100 mg 100 mg, Oral, DAILY, First dose on Fri03/09/20 at 1900, Until Discontinued, Routine Given 03/13/2020 8:21 AM EST 100 mg Given 03/12/2020 8:22 AM EST 100 mg documented in this encounter Active and Recently Administered Medications Due to Daylight Saving Time, this section may contain times in both EDT and EST. Scheduled Medication Order 03/12/2020 03/13/2020 03/14/2020 busPIRone (Buspar) tablet 15 mg 820 (Given - Provider : Krystyna Alan RN)2123 (Given - Provider: Anusha Matias, VINCENT) 818 (Given - Provider: Meli Armstrong RN)2004 (Given - Provider: Anusha Matias RN) 0823 (Given - Provider: Shelley Mathis RN) 15 mg, Oral, 2 TIMES DAILY, First dose o n Fri03/10/20 at 0030, Until Discontinued, Routine ceFAZolin (Ancef) 2 g in dextrose 5% 100 mL infusion (CANCEL ED) 1140 (Given - Provider: Meli Armstrong RN) 2 g, Intravenous, EVERY 8 HOURS, First d ose on Fri03/13/20 at 1130, Until Discontinued, Administer [...] Krystyna Alan RN)2124 (Given - Provider: Anusha Matais, VINCENT) 0821 (Given - Provider: Meli Armstrong RN)1528 (Given - Provider: Meli Armstrong RN)2006 (Given - Provider: Anusha Matias RN) 0822 (Given - Provider: Shelley goldberg RN)1452 (Given - Provider: Tequila Hendrickson, VINCENT) 600 mg, Oral, 3 TIMES DAILY, First dose (after last modification) on Fri03/10/20 at 0900, Until Discontinued, Routine lisinopriL (Prinivil;Zestril) tablet 20 mg (CANCELED) 08 (Given - Provider: Krystyna Alan RN) 0821 (Given - Provider: Meli Armstrong RN) 20 mg, Oral, DAILY, First dose on Fri at 1045, Until Discontinued, Routine lisinopriL (Prinivil;Zestril) tablet 20 mg (COMPLETED) 1140 (Given - Provider: Meli Armstrong RN) 20 mg, Oral, ONCE, 1 dose, Fri03/13/20 at 1115, Routine lisinopriL (Prinivil;Zestril) tablet 40 mg 08 (Given - Provider: Shelley Mathis RN) 40 mg, Oral, DAILY, First dose (after [...] Krystyna Alan RN)1847 (Given - Provider: Krystyna Alan RN)2321 (Given - Provider: Anusha Matias, VINCENT) 0535 (Given - Provider: Anusha gagnon RN)1339 (Given - Provider: Meli Armstrong RN)1820 (Given - Provider: Meli Armstrong RN)2341 (Given - Provider: Anusha Matias, VINCENT) 0618 [...] Armstrong RN)1528 (Given - Provider: Meli Armstrong RN)2006 (Given - Provider: Anusha Matias RN) 0823 (Given - Provider: Shelley goldberg, VINCENT)1452 (Given - Provider: Tequila Hendrickson RN) 500 mg, Oral, 3 TIMES DAILY, First dose on 03/11/20 at 1500, Until Discontinued, Routine nicotine (NICODERM CQ) 21 mg/24 hr patch 21 mg(Linked Group 1) 0821 (Patch Applied - Provider: Krystyna Alan RN) 0818 (Patch Applied - Provider: Meli Armstrong RN) 0826 (Patch Applied - Provider: Shelley Mathis RN) 21 mg (1 patch), Transdermal, DAILY, Fir st dose on Christina 03/09/20 at 1900, Until Discontinued, Apply new patch to nonhairy, clean, dry skin on the upper body or upper outer arm; each patch should be applied to a different site , Routine nicotine (NICODERM CQ) 21 mg/24 hr patch Patch Removal (Linked Group 1) 899 (Patch Removed - Provider: Krystyna Alan RN) 899 (Patch Removed - Provider: Meli Armstrong RN) 825 (Patch Removed - Provider: Shelley Mathis RN) [...] Krystyna Alan RN)2123 (Given - Provider: Anusha Matias, VINCENT) 820 (Given - Provider: Meli Armstrong RN)2004 (Given - Provider: Anusha Matias, VINCENT) 821 (Given - Provider: Shelley Mathis, VINCENT) 40 mg, Oral, 2 TIMES DAILY, [...] Intravenous, 2 TIMES DAILY, First dose on Fri03/09/20 at 2100, Until Discontinued, Routine thiamine (Vitamin B1) tablet 100 mg 08 (Given - Prov ider: Krystyna Alan, VINCENT) 08 (Given - Provider: Meli Armstrong RN) 08 (Give n - Provider: Shelley Mathis RN) 100 mg, Oral, DAILY, First dose on Christina 1 at 1900, Until Discontinued, Routine PRN Medication Order 03/12/2020 03/13/2020 03/14/2020 acetaminophen (Tylenol) tablet 650 mg 0600 (Given - Pr ovider: Hodan Felix RN)1248 (Given - Provider: Krystyna Alan, VINCENT) 0534 (Given - Provider: Anusha Matias, VINCENT)2004 (Given - Provider: Anusha Matias, VINCENT) 650 mg, Oral, EVERY 6 HOURS PRN, [...] Group 2) 2124 (Given - Provider: Anusha Matias, VINCENT) 0.4 mg, Intravenous, EVERY 4 HOURS PRN, Starting 03/11/20 at 1427, Until 03/14/20 at 1658, Pain, moderate pain (4-6), May give an additional 0.2 mg in 30 minutes once if pain not relieved., Routine HYDROmorphone (DILAUDID) injection 0.6 mg(Linked Group 2) 2124 (See Alternative - Provider: Anusha Matias RN) 0.6 mg, Intravenous, EVERY 4 HOURS PRN, Starting 03/11/20 at 1427, Until Tu03/14/20 at 1658, Pain, severe pain (7-10), May give an additional 0.2 mg in 30 minutes once if pain not relieved., Routine lidocaine (XYLOCAINE) 10 mg/mL (1 %) injection 3 mg 3 mg (0.3 mL), Subcutaneous, ONCE PRN, 1 dose, Starting Christina 03/09/20 at 1830, Until Fri03/14/20 at 1658, for discomfort with PIV insertion, Routine melatonin tablet 3 mg 3 mg, Oral, NIGHTLY PRN, Starting Christina at 1830, Until Fri03/14/20 at 1658, Sleep, Routine metoclopramide (Reglan) tablet 10 mg 10 mg, Oral, 3 TIMES DAILY PRN, Starting 03/10/20 at 0951, Until Fri03/14/20 at 1658, Nausea, Routine QUEtiapine (SEROquel) tablet 25 mg 25 mg, Oral, NIGHTLY PRN, Starting Christina 1 at 2337, Until Fri03/14/20 at 1658, Agitation, Routine sodium chloride 0.9 % (flush) flush 5-20 mL 5-20 mL, Intravenous, EVERY 1 MIN PRN, S tarting Christina 03/09/20 at 1830, Until 03/14/20 at 1658, flush, Flush pertains to all indwelling lines. Flush per protocol found in the job aid using the link provided on this medication record., Routine Linked Groups Order Group 1: nicotine (NICODERM CQ) 21 mg/24 hr patch 21 mgJump to med 21 mg (1 patch), Transdermal, DAILY, Fir st dose on Christina 03/09/20 at 1900, Until Discontinued
Apply new patch [...] HOURS PRN, Starting 03/11/20 at 1427, Until Tu03/14/20 at 1658, Pain, mild pain (1-3)
May [...]
Routine documented in this encounter Care Teams Irrigator Overhead Relationship Specialty Start Date End Date Janusz Tran APRN PCP - General Internal Medicine 04/07/[address] [place] [phone] documented as of this encounter
--- OUTSIDE RECORDS SUMMARY | 2021-11-30 08:20 | XMS_ITS | Encounter Summary ---
:1955 [place] [address] Care Team Providers Name Role Phone Brian Fall APRN Primary Care Provider Encounter Details Date Type Department Care Team Description 03/08/2020 Telephone Wound Care at Anusha [facility] [place] [address] Social History Tobacco Use Types Packs/Day Years Used Date Current Every Day Smoker Cigars, Cigarettes 1 42 Smokeless Tobacco: Never Used Alcohol Use Standard Drinks/Week Comments Yes 24 (1 standard drink = 0.6 oz pure alcoh ol) Sex Assigned at Date Recorded Not on file documented as of this encounter Miscellaneous Notes Telephone Encounter - Anusha Rebollar LPN - 03/08/2020 1:48 PM EDT Verbal per Dr Gómez. Call patient to schedule appointment for tomorrow morning regarding lab work and to check on wound. Telephone call to patient and spoke with Padmini. They are willing to come to the office tomorrow morning 03/09/20 at 0730 to see LISA regarding wound. Padmini and Mahin are aware that he may go to the ED if the wound has worsened. Per PadminiMahin has taken 2 doses of Bactrim so far. Next dose due tonight prior to bed. Anusha Rebollar LPN documented in this encounter Plan of Treatment Upcoming Encounters Date Type Specialty Care Team Description 12/11/2021 Appointment Radiology 12/11/2021 Office Visit Orthopaedics Marion Tavera APRN [facility] ER DR ORTHOPAEDIC SURG [place], [place] [address] (Wo rk) 01/15/2022 Appointment Radiology Stiven Cervantes MD [facility] er Pulmonary Medici [place], [place] [address] (Wo rk) Scheduled Procedures Name [...] Action Plan 9:07 AM EDT) [facility] Note: Formatting of this note might be d ifferent from the original. Patient Goal: To experience less side ef fects than his past regimen of Peg and Ribavirin Timeframe to meet goal: 3 months of ther apy documented as of this encounter Visit Diagnoses Not on filedocumented in this encounter Care Teams Regional Flatbed Truck Driver Relationship Specialty Start Date End Date Brian Fall APRN PCP - General Internal Medicine 04/07/[address] [place] [phone] documented as of this encounter
--- OUTSIDE RECORDS SUMMARY | 2021-11-30 08:20 | XMS_ITS | Encounter Summary ---
:1955 Author Organization [place] [address] Care Team Providers Name Role Phone Brian Fall APRN Primary Care Provider Encounter Details Date Type Department Care Team Description 03/13/2020 Anesthesia Event [address] [facility] Matty Herrera MD [facility] Jenni hammer [place] [address] [place] [id number] [phone] (Wo rk) Anesthesia Record Procedure Summary Procedure Name Responsible Anesthesia Start Anesthesia Stop Time Anesthesiologist Time Acute Pain Service (consult) Events No events on file. No medications on file. Agents No agents on file. Blood No blood administrations on file. Lines, Drains, and Airways No LDAs on file. documented in this encounter Social History Tobacco [...] Marion Tavera APRN [facility] DR ORTHOPAEDIC SURG [place], [place] [address] (Wo rk) 01/15/2022 Appointment Radiology Stiven Cervantes MD [facility] Pulmonary Mediccharlie [place], [place] [address] (Wo rk) Scheduled Procedures Name [...] on filedocumented in this encounter Care Teams Engineering Group Leader Relationship Specialty Start Date End Date Brian Fall APRN PCP - General Internal Medicine 04/07/[address] [place] [phone] documented as of this encounter
--- OUTSIDE RECORDS SUMMARY | 2021-11-30 08:20 | XMS_ITS | Encounter Summary ---
:1955 Author Organization [facility] [place] [address] Care Team Providers Name Role Phone Brian Fall APRN Primary Care Provider Reason for Visit Auth/Cert Specialty Diagnoses / Procedures Referred By Contact Refer red To Contact Diagnoses Osteomyelitis Leg swelling Procedures EMERGENCY IPI Referral ID Status Reason Start Date Expiration Date Visits Requ ested Visits Authorized [id number] 1 1 Encounter Details Date Type Department Care Team Description 03/07/2020 Laboratory Appointment Lab 3L [facility] Dusty Neuropathic ulcer of [facility] foot, right, with fat [facility] [place] [phone] Social History Tobacco Use Types Packs/Day Years [...] Office Visit Orthopaedics Marion Tavera APRN [facility] ORTHOPAEDIC SURG [place], [place] [address] (Wo rk) 01/15/2022 Appointment Radiology Stiven Cervantes MD [facility] Pulmonary Mediccharlie villegas [place], [place] [address] (Wo rk) Scheduled Procedures [...] Esquivel, Understanding Action Plan 9:07 AM EDT) [facility] Note: Formatting of this note might be d ifferent from the original. Patient Goal: To experience less side ef fects than his past regimen of Peg and Ribavirin Timeframe to meet goal: 3 months of ther apy documented as of this encounter Procedures Procedure Name Priority Date/Time Associated Diagnosis Comme nts HC C-REACTIVE Routine 03/07/2020 4:20 PM Neuropathic ulcer of Results for this PROTEIN EDT foot, right, with procedure are in fat layer exposed the result s section. SCAN, PERIPHERAL Routine 03/07/2020 4:20 PM Resul ts for this BLOOD EDT procedure are i n the results section. HEMOGRAM Routine 03/07/2020 4:20 PM Neuropathic ulcer of R esults for this EDT foot, right, with procedure are in fat layer exposed the result s section. DIFFERENTIAL, Routine 03/07/2020 4:20 PM Neuropathic ulcer of Results for this AUTOMATED EDT foot, right, with procedure are in fat layer exposed the result s section. HC ESR-SEDIMENTATION Routine 03/07/2020 4:20 PM Neuropathic ul cer of Results for this RATE, BLOOD EDT foot, right, with procedure are in fat layer exposed the result s section. HC CBC,PLT & AUTO Routine 03/07/2020 4:20 PM Neuropathic ulcer of DIFF EDT foot, right, with fat layer exposed documented in this encounter Results Scan, Peripheral Blood (03/07/2020 4:20 PM EDT) P athologist Signature Plat Estimate Normal [facility] RBC Morphology Normal [facility] Specimen Anatomical Collection Method Collection Time Receive d Time (Source) Location / / Volume Laterality Blood specimen 03/07/2020 4:20 PM 020 4:35 (specimen) EDT PM EDT Resulting Agency Comment Spec In Lab Niki Stockton APRN HEMATOLOGY ORDERABLES Performing Organization Address City/State/[place] [address] (ABNORMAL) Differential, Automated (03/07/2020 4:20 PM EDT) [facility] Method Time Signature Neutrophils % 68.0 % [facility] Neutr Abs (ANC) 8.29 (H) 1.70 - [facility] 6.10 [facility] x10(3)/[facility] LABORATORY Lymphocytes % 14.1 % [facility] Lymphocytes Abs 1.7 0.9 - 3.2 [facility] x10(3)/[facility] Monocytes % 12.4 % [facility] Monocyte Abs 1.5 (H) 0.3 - 0.9 [facility] x10(3)/[facility] Eosinophils % 4.3 % [facility] Eosinophils Abs 0.5 (H) 0.0 - 0.4 [facility] x10(3)/[facility] Basophils % 0.6 % [facility] Basophils Abs 0.1 0.0 - 0.1 [facility] x10(3)/[facility]AT[facility] Immature Gran % 0.60 % [facility] Comment: Immature granulocytes(IG's)percentage an d absolute count will include metamyelocytes, myelocytes, and promyelo cytes. Blood smears from CBCs yielding IG's will be scanned manually for concor dance. If this scan disagrees with the automated IG or if promyelocytes are not ed, a manual differential will be performed. Shannan Gran Abs 0.07 (H) 0.00 - 0.04 x10(3)/[facility] LABORATORY Specimen Anatomical Collection Method Collection Time Receive d Time (Source) Location / / Volume Laterality Blood specimen 03/07/2020 4:20 PM 020 4:35 (specimen) EDT PM EDT Resulting Agency Comment Spec In Lab Niki Stockton APRN HEMATOLOGY ORDERABLES Performing Organization Address City/State/[place] [address] (ABNORMAL) Hemogram (03/07/2020 4:20 PM EDT) Analysis Performed At Patho logist Time Signature WBC 12.2 (H) 4.0 - 9.5 [facility] x10(3)/[facility] LABORATORY RBC 4.18 (L) 4.58 - [facility] 5.54 [facility] x10(6)/[facility] LAB[facility]ATORY Hemoglobin 13.2 (L) 13.7 - [facility] 16.5 gm/dL [facility] Hematocrit 39.1 (L) 40.5 - [facility] 48.5 % [facility] MCV 93.5 (H) 82.9 - [facility] 93.1 [facility] LABORATORY MCH 31.6 27.5 - [facility] 32.1 pg [facility] MCHC 33.8 32.0 - [facility] 35.7 gm/dL [facility] Platelets 315 145 - 357 [facility] x10(3)/[facility] LABORATORY RDWSD 47.0 (H) 36.0 - [facility] 45.0 [facility] LABORATORY RDWCV 13.8 11.4 - [facility] 13.8 % [facility] LAB[facility] MPV 9.6 7.6 - 12.9 [facility] LABORATORY nRBC % Auto 0.0 % [facility] nRBC Abs Auto 0.000 0.000 - [facility] 0.000 [facility] x10(3)/[facility] LABORATORY Specimen Anatomical Collection Method Collection Time Receive d Time (Source) Location / / Volume Laterality Blood specimen 03/07/2020 4:20 PM 020 4:35 (specimen) EDT PM EDT Resulting Agency Comment Spec In Lab Niki Stockton BARBED WIRE MACHINE OPERATOR HEMATOLOGY ORDERABLES Performing Organization Address City/State/[place] [address] (ABNORMAL) CRP, acute inflammation (03/07/2020 4:20 PM EDT) P athologist Signature CRP 109.5 (H) <=4.9 mg/L [facility] Specimen Anatomical Collection Method Collection Time Receive d Time (Source) Location / / Volume Laterality Blood specimen 03/07/2020 4:20 PM 020 4:35 (specimen) EDT PM EDT Resulting Agency Comment Spec In Lab Niki Stockton APRN CHEMISTRY ORDERABLES Performing Organization Address City/[facility]/ZIP [place] [address] (ABNORMAL) Sedimentation rate (03/07/2020 4:20 PM EDT) P athologist Signature Sed Rate 74 (H) 2 - 37 [facility] mm/hr [facility] Comment: Effective April 21, 2019 new capillar y photometric technology has resulted in a change in reference ranges. It is r ecommended that each ESR result be reviewed with its own age appropriate re ference range. Specimen Anatomical Collection Method Collection Time Receive d Time (Source) Location / / Volume Laterality Blood specimen 03/07/2020 4:20 PM 020 4:35 (specimen) EDT PM EDT Resulting Agency Comment Spec In Lab Niki Stockton BARBED WIRE MACHINE OPERATOR HEMATOLOGY ORDERABLES Performing Organization Address City/[facility]/ZIP [place] [address] documented in this encounter Visit Diagnoses Diagnosis Neuropathic ulcer of foot, right, with f at layer exposed documented in this encounter Care Teams Tele Marketing Executive Relationship Specialty Start Date End Date Brian Fall APRN PCP - General Internal Medicine 04/07/[address] [place] [phone] documented as of this encounter
--- OUTSIDE RECORDS SUMMARY | 2021-11-30 08:20 | XMS_ITS | Encounter Summary ---
:1955 [place] [address] Care Team Providers Name Role Phone Brian Fall APRN Primary Care Provider Reason for Visit Reason Comments Wound Check Auth/Cert Specialty Diagnoses / Procedures Referred By Contact Refer red To Contact Diagnoses Osteomyelitis Leg swelling Procedures EMERGENCY IPI Referral ID Status Reason Start Date Expiration Date Visits Requ ested Visits Authorized [id number] 1 1 Encounter Details Date Type Department Care Team Description 03/09/2020 Office Visit Wound Care at [facility], Claritza Wright ropathic ulcer of foot, left, with fat layer exposed; [facility] LISA Neuropathic ulcer of foot, right, with f at layer exposed [facility] [address] [facility] [place] [phone] Social History Tobacco Use Types Packs/Day Years Used Date Current Every Day Smoker Cigars, Cigarettes 1 42 Smokeless Tobacco: Never Used Alcohol Use Standard Drinks/Week Comments Yes 24 (1 standard drink = 0.6 oz pure alcoh ol) Sex Assigned at Date Recorded Not on file documented as of this encounter Last Filed Vital Signs Vital Sign Reading Time Taken Comments Blood Pressure 153/80 03/09/2020 7:34 AM EDT Pulse 68 03/09/2020 7:34 AM EDT Temperature 36.1 ??C (97 ??F) 03/09/2020 7:34 AM EDT Respiratory Rate - - Oxygen Saturation 93% 03/09/2020 7:34 AM EDT Inhaled Oxygen Concentration - - Weight - - Height - - Body Mass Index - - documented in this encounter Progress Notes Leah Vega, LAMINATOR HAND - 03/09/2020 7:30 AM EDT Images from the original note were not included. [facility] Progress Note HPI: Soledad Wahl is a 64 y.o. male returns for follow up of bilateral foot ulcers and right hallux ulcer. 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 He was admitted to and had amputation and IV abx. Left foot with MRI in 08/2019 showing small area of altered bone marrow signal intensity within fourth metatarsal had and fourth proximal phalanx deep to the soft tissue ulceration is consistent with osteomyelitis. He completed 42 days of Linezolid 600 mg on 10/13/19 and had 10 day course of cephalexin beginning of August 2019. He is a 1 pack per day smoker. He has history of neuropathy, but is not a diabetic. He had alcohol dependence, hepatitis C (managed by ), cirrhosis, HTN, and hyperlipidemia. ?? He has custom made shoes from [employer], he received in 09/2019. MRIs of bilateral feet have been ordered (02/28) ?? Home Health Agency: none Pertinent labs/tests: ABIs 10/25/19: RIGHT: No LEAD. LEFT: No LEAD. ?? Results for SOLEDAD WAHL ( ) as of 03/09/2020 07:41 Ref. Range 03/07/2020 16:20 WBC Latest Ref Range: 4.0 - 9.5 x10(3)/mcL 12.2 (H) RBC Latest Ref Range: 4.58 - 5.54 x10(6)/mcL 4.18 (L) Hemoglobin Latest Ref Range: 13.7 - 16.5 gm/dL 13.2 (L) Results for SOLEDAD WAHL ( ) as of 03/09/2020 07:41 Ref. Range 03/07/2020 16:20 Sed Rate Latest Ref Range: 2 - 37 mm/hr 74 (H) Results for SOLEDAD WAHL ( ) as of 03/09/2020 07:41 Ref. Range 03/07/2020 16:20 CRP Latest Ref Range: <=4.9 mg/L 109.5 (H) ROS: Negative for constitutional symptoms Appetite: baseline, denies nausea, vomiting, diarrhea Pain: increased in left foot / plantar ulcer FBS: is not diabetic it still stinks it's a bit redder this morning Has taken 48 hours of Bactrim PO PE: Vital Signs: BP 153/80 (BP Location (NBP): Right arm, Patient Position: Sitting, BP Cuff Sizes: Adult (25-34 cm)) Pulse 68 Temp 36.1 ??C (97 ??F) (Temporal) SpO2 93% Pleasant, 64 y.o., male , in NAD. Arrives with his . Mobility: independent Edema: left toes to midfoot DP/PT pulses: + Venous stasis rash: none Odor: present Periwound of the left plantar foot is macerated There is ring exudate with malodor Bone is palpated with thin layer of tissue above Left dorsal foot with toe edema and erythema (outlined) Left plantar foot with maceration Right plantar foot Treatment: Cleansed wound with normal saline and gauze. Wound cleansed with VASHE wound cleanser Dsg: applied mepilex non-bordered Ag foam (for transport to the ED) Erythema outlined with weroie (Left foot) Assessment/Plan: Soledad Wahl is a 64 y.o. male with an infected left plantar ulcer that probes tobone. He is non-diabetic and afebrile, but the foot is increasingly erythematous in the setting of 48 hours of PO Bactrim. His inflammatory markers from 03/07 are elevated, as is his WBC. We discussed e valuation in the ED for imaging and IV antibiotics. He and his agree. Report was called to Ryan in the ED and he was transported to the ED via , as his VS were stable. We will see him back at the [facility] in ~ 1 week depending on his plan of treatment. The patient verbalized understanding of and agreement with the plan. Follow up: ~ 1 week and PRN post-discharge Wound care instructions: documented in this encounter Plan of Treatment Upcoming Encounters Date Type Specialty Care Team Description 12/11/2021 Appointment Radiology 12/11/2021 Office Visit Orthopaedics Marion Tavera APRN [facility] ORTHOPAEDIC SURG [place], [place] [address] (Wo rk) 01/15/2022 Appointment Radiology Stiven Cervantes MD [facility] Medical [facility] Pulmonary Medici nelly [place], [place] [address] (Wo rk) Scheduled Procedures Name [...] foot, left, with fa t layer exposed Neuropathic ulcer of foot, right, with f at layer exposed documented in this encounter Care Teams Fibrous Wallboard Inspector Relationship Specialty Start Date End Date Brian Fall APRN PCP - General Internal Medicine 04/07/[address] [place] [phone] documented as of this encounter
--- OUTSIDE RECORDS SUMMARY | 2021-11-30 08:21 | XMS_ITS | Encounter Summary ---
:1955 Author Organization [facility] [place] [address] Care Team Providers Name Role Phone Brian Fall APRN Primary Care Provider Reason for Referral Diagnostic Test (Routine) - Closed Specialty Diagnoses / Procedures Referred By Contact Refer red To Contact Radiology Diagnoses Chronic vomiting Abnormal laboratory test Jenaro Dunne MD [facility] Rad Mri Procedures MRI Enterography [facility] Contrast [facility] GASTROENTEROLOGY DEP [address] [phone] Referral ID Status Reason Start Date Expiration Date Visits V isits Requested Authorized [id number] Closed Specialty 11/05/2019 05/02/2020 1 1 Service Requested Reason for Visit Diagnostic Test (Routine) - Closed Specialty Diagnoses / Procedures Referred By Contact Refer red To Contact Radiology Diagnoses Chronic vomiting Abnormal laboratory test Jenaro Dunne MD [facility] Rad Mri Procedures MRI Enterography [facility] Contrast [facility] GASTROENTEROLOGY DEP [place], [place] [id number] [place] [phone] Referral ID Status Reason Start Date Expiration Date Visits V isits Requested Authorized [id number] Closed Specialty 11/05/2019 05/02/2020 1 1 Service Requested Encounter Details Date Type Department Care Team Description 11/11/2019 Hospital Encounter MRI at [facility] Jenaro Dunne Chronic vomiting; [facility] MD [place] Abnormal laboratory test [address] [place], [place] [phone] GASTROENTEROLOGY [phone] [place] [address] Social History Tobacco Use Types Packs/Day Years Used Date Current Every Day Smoker Cigars, Cigarettes 1 42 Smokeless Tobacco: Never Used Alcohol Use Standard Drinks/Week Comments Yes 24 (1 standard drink = 0.6 oz pure alcoh ol) Sex Assigned at Date Recorded Not on file documented as of this encounter Medications at Time of Discharge Medication Sig Dispensed Refills Start Date End Date acetaminophen (Tylenol) Take 650 mg every 4 [...] 150mg daily) multivitamin Take 1 tablet by mouth 0 08/21/2012 (THERAGRAN) tablet daily. QUEtiapine (SEROquel) take 1 tablet by mouth 0 11/18/2021 25 mg Tablet twice a day if needed gabapentin (NEURONTIN) take 2 tablets by 0 201903/14/2020 600 mg Tablet mouth three times a day ondansetron ODT Take 1 tablet by mouth 90 tablet 1 10/01/19 20 03/14/2020 (Zofran-ODT) 4 mg every 8 hours. Tablet, Rapid Dissolve donepezil (ARICEPT) 10 Take 1 tablet by mouth 30 tablet 11 1 12/24/2019 mg Tablet nightly. citalopram (CELEXA) 20 Take 20 mg by mouth 0 08/22/2020 mg Tablet Daily. omeprazole (PRILOSEC) Take 40 mg by mouth 1 05/2403/14/2020 40 mg Capsule, Delayed daily. Release(E.C.) methadone HCl Take 90 mg by mouth [...] every 6 Aerosol Inhaler hours as needed. acetaminophen (TYLENOL) Take 1 tablet by mouth 0 12/14/2015 03/01/2020 500 mg Tablet every 8 hours. DULERA 100-5 inhale 2 puffs by 0 11/07/201511/19 mcg/actuation HFA mouth prn Aerosol Inhaler gabapentin (NEURONTIN) Take 2 tablets by 0 201403/01/2020 600 mg Tablet mouth 3 times daily. documented as of this encounter Plan of Treatment Upcoming Encounters Date Type Specialty Care Team Description 12/11/2021 Appointment Radiology 12/11/2021 Office Visit Orthopaedics Marion Tavera APRN [facility] ORTHOPAEDIC SURG [place], [place] [address] (Wo rk) 01/15/2022 Appointment Radiology Stiven Cervantes MD [facility] Pulmonary Medici [place], [place] [address] (Wo rk) Scheduled Procedures Name [...] encounter Procedures Procedure Name Priority Date/Time Associated Comments Diagnosis MRI ENTEROGRAPHY Routine 11/11/2019 6:09 PM Chronic vomi ting Results for this WITH/WO CONTRAST EDT Abnormal laboratory proc edure are in test the results section. documented in this encounter Results MRI Enterography wwo Contrast (11/11/2019 6:09 PM EDT) Anatomical Region Laterality Modality Abdomen Magnetic Resonance Specimen (Source) Anatomical Location Collection Method / Collectio n Time Received Time / Laterality Volume Impressions 11/15/2019 9:46 AM EDT No MR evidence of inflammatory bowel dis ease. I have personally reviewed the image(s) and the resident's interpretation and agree with the findings, Harley Jimenes s at 11/15/2019 9:46 AM Thank you for letting us participate in the care of this patient. For questions regarding this report, please contact [facility] number below. ? Electronically signed by: Harley Dyer , [facility] ([phone]), at 11/15/2019 9:46 AM Narrative 11/15/2019 9:46 AM EDT EXAMINATION: MRI ENTEROGRAPHY WWO CONTRAST CLINICAL HISTORY: 64 yo with chronic ralph n, nausea with vomiting, and elevated inflamm markers. ??Please eval for Crohn 's, partial SBO, masses. TECHNIQUE: ??MRI of the abdomen and pelv is was performed with images obtained prior to and following the intravenous a dministration of 18ml of Dotarem. ??0.5mg glucagon was also administered. ??Breeza was administered as an oral contrast. COMPARISON: CT abdomen/pelvis 2019 FINDINGS: GI tract: No dilated small or large fiona l, bowel wall thickening, or mesenteric inflammation. ??No mucosal hyperenhancem ent. Disease location: None # diseased segments: None Imaging appearance: Inflammation: None Stricture: None Penetrating disease: None Peritoneum/mesentery: Normal Liver: Normal signal, no lesions. Bile ducts: Nondilated. Gallbladder: Layering cholelithiasis. No rmal caliber wall. Pancreas: Normal. Spleen: Normal. Adrenals: Normal. Kidneys: Subcentimeter T2 hyperintense, T1 hypointense lesions in the right kidney compatible with cysts. No hydrone phrosis. Lymph nodes: No lymphadenopathy. Abdominal wall: Small bilateral fat-cont aining inguinal hernias. Reproductive structures: Normal. Osseous structures: No marrow signal abn ormality. Patient is status post bilateral total hip arthroplasties. Procedure Note Harley Rees MD - 11/15/2019Form atting of this note might be different from the original. EXAMINATION: MRI ENTEROGRAPHY WWO CONTRA ST CLINICAL HISTORY: 64 yo with chronic ralph n, nausea with vomiting, and elevated inflamm markers. Please eval for Crohn's , partial SBO, masses. TECHNIQUE: MRI of the abdomen and pelvis was performed with images obtained prior to and following the intravenous a dministration of 18ml of Dotarem. 0.5mg glucagon was also administered. Breeza w as administered as an oral contrast. COMPARISON: CT abdomen/pelvis 2019 FINDINGS: GI tract: No dilated small or large fiona l, bowel wall thickening, or mesenteric inflammation. No mucosal hyperenhancemen t. Disease location: None # diseased segments: None Imaging appearance: Inflammation: None Stricture: None Penetrating disease: None Peritoneum/mesentery: Normal Liver: Normal signal, no lesions. Bile ducts: Nondilated. Gallbladder: Layering cholelithiasis. No rmal caliber wall. Pancreas: Normal. Spleen: Normal. Adrenals: Normal. Kidneys: Subcentimeter T2 hyperintense, T1 hypointense lesions in the right kidney compatible with cysts. No hydrone phrosis. Lymph nodes: No lymphadenopathy. Abdominal wall: Small bilateral fat-cont aining inguinal hernias. Reproductive structures: Normal. Osseous structures: No marrow signal abn ormality. Patient is status post bilateral total hip arthroplasties. IMPRESSION No MR evidence of inflammatory bowel dis ease. I have personally reviewed the image(s) and the resident's interpretation and agree with the findings, Harley tyler at 11/15/2019 9:46 AM Thank you for letting us participate in the care of this patient. For questions regarding this report, please contact e number below. Jenaro Dunne MD IMG MRI ORDERABLES documented in this encounter Visit Diagnoses Diagnosis Chronic vomiting Vomiting alone Abnormal laboratory test Other abnormal clinical finding documented in this encounter Administered Medications Inactive Administered Medications - up to 3 most recent administrations Medication Order MAR Action Action Date Dose Rate Site flavored contrast (BREEZA) oral Given 11/11/2019 6:07 PM EDT 1,5 00 mLs liquid 1,500 mL 1,500 mL, Oral, ONCE PRN, 1 dose, Starting on Christina 11/11/19 at 1605, Until Christina 11/11/19 at 1807, Per Protocol, Radiology Contrast, Routine gadoterate meglumine (DOTAREM) 0.5 mmol/mL Given 11/11/2019 6:07 PM EDT 18 mLs (376.9 mg/mL) injection 0.2 mL/kg/dose 0.2 mL/kg/dose, Intravenous, ONCE PRN, 1 dose, Starting on Christina 11/11/19 at 1605, Until Christina 7 at 1807, Per Protocol, Radiology Contrast, Routine documented in this encounter Care Teams Advanced Manufacturing Consultant Relationship Specialty Start Date End Date Brian Fall APRN PCP - General Internal Medicine 04/07/[address] [place] [phone] documented as of this encounter
--- OUTSIDE RECORDS SUMMARY | 2021-11-30 08:21 | XMS_ITS | Encounter Summary ---
:1955 Author Organization [facility] [place] [address] Care Team Providers Name Role Phone Brian Fall APRN Primary Care Provider Reason for Visit Auth/Cert Specialty Diagnoses / Procedures Referred By Contact Refer red To Contact Diagnoses Osteomyelitis Leg swelling Procedures EMERGENCY IPI Referral ID Status Reason Start Date Expiration Date Visits Requ ested Visits Authorized [id number] 1 1 Encounter Details Date Type Department Care Team Description 03/07/2020 Office Visit Wound Care at [facility] ulcer of foot, left, with fat layer exposed; [facility] Niki Parra RN Celluli tis [place] foot, [place] [address] Social History Tobacco Use Types Packs/Day Years Used Date Current Every Day Smoker Cigars, Cigarettes 1 42 Smokeless Tobacco: Never Used Alcohol Use Standard Drinks/Week Comments Yes 24 (1 standard drink = 0.6 oz pure alcoh ol) Sex Assigned at Date Recorded Not on file documented as of this encounter Last Filed Vital Signs Vital Sign Reading Time Taken Comments Blood Pressure 146/66 03/07/2020 3:05 PM EDT Pulse 66 03/07/2020 3:05 PM EDT Temperature 37 ??C (98.6 ??F) 03/07/2020 3:05 PM EDT Respiratory Rate - - Oxygen Saturation 94% 03/07/2020 3:05 PM EDT Inhaled Oxygen Concentration - - Weight - - Height - - Body Mass Index - - documented in this encounter Progress Notes Niki Delatorre RN - 03/07/2020 3:15 PM EDT Images from the original note were not included. [facility] Progress Note HPI: Mahin Ramos is a 64 y.o. male who returns for follow up of bilateral foot ulcers and right hallux ulcer. He is being seen today as a same day add on for a deteriorating Left plantar wound. He reports an increase in purulent drainage, redness, pain and odor from the wound. He was last seen in the wound care center on 03/01/20. No reported fever, chills, N/V. He is currently wearing an front offloading shoe on the left foot and a Hexagon offloading shoe on his Right foot. ?? HPI from previous visit:?? Mahin Ramos??is a 64 y.o.??male??referred by Brian Fall APRN for evaluation of bilateral foot ulcers. He has history of osteomyelitis of foot [...] had alcohol dependence, hepatitis C (managed by GI), cirrhosis, HTN, and hyperlipidemia. ?? He has custom made shoes from [employer], he received in 09/2019 Type of Wound : Neuropathic Ulcers to feet, Left plantar deteriorating Home Health Agency: No. Spouse performs dressing changes ABIs 10/25/19: RIGHT: No LEAD. LEFT: No LEAD. 02/23/20 Xray, Right foot FINDINGS: No acute fracture or dislocation. There is an old deformity of the right distal fifth metatarsal. The fifth proximal interphalangeal joint is hyperextended. There is a bony bunion. There is degenerative change at the first interphalangeal joint and the first, second, and third TMT joints and the first MTP joint. At the first interphalangeal joint, there is focal lucency, adjacent soft tissue swelling, and a erosion of the base of the first distal phalanx, best appreciated on the lateral view, new compared to 2017. ?? IMPRESSION Findings concerning for osteomyelitis centered at the first interphalangeal joint. Recommend MRI for further evaluation 12/15/19 MRI left foot WO contrast TECHNIQUE: Noncontrast MRI of the left foot was performed. ?? COMPARISON: Left foot radiograph 10/25/1999 ?? FINDINGS: Imaging was centered over the lateral aspect of the foot including the second, third, fourth, and the partially amputated fifth metatarsal. ?? There is motion artifact. There is an apparent ulcer at the plantar aspect of the fourth metatarsal head. ?? There is no fracture. There is mild bone marrow edema within the base of the fourth proximal phalanx and the fourth metatarsal head. T1 marrow signal is preserved. There is no joint effusion. There is prior amputation of the fifth metatarsal at the mid metatarsal region. The margins are well corticated. No erosions. ?? No fluid collection. Diffuse muscular fatty infiltration. Flexor and extensor tendons are intact. No tenosynovitis. ?? IMPRESSION Imaging was focused on the lateral aspect of the foot and the first ray was incompletely imaged. ?? Bone marrow edema centered at the fourth MTP joint is likely stress related, reactive edema, or osteitis. No evidence of osteomyelitis of the fourth metatarsal head. ?? 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 There is no evidence of osteomyelitis of the residual fifth metatarsal. ?? Patient scheduled for MRI of Right and Left foot on 03/17/20 with PO sedation. He is on a cancellation list. Subjective: Patient denies fever, chills, sweats. Denies nausea, vomiting, loose bowels. Last FSBS:N/A Appetite is good Taking protein supplements: Yes Boost Activity/Mobility: Ambulatory but uses a wheelchair for provider visits. He wears offloading shoes to bilateral feet at present. Current pain level (see patient intake data) Analgesia needed prior to procedure? yes Objective: Vitals: Blood pressure 146/66, pulse 66, temperature 37 ??C (98.6 ??F), temperature source Oral, SpO2 94 %. Dressing was removed. There was moderate amount serous drainage. Malodor yes Erythema yes Left dorsal and plantar foot Pulses: Dorsalis Pedis: Right:palpable Left: palpable Posterior Tibia: Right: palpable Left: palpable Wound location Measurement 03/08/20 Measurement 03/01/20 Measurement 02/23/20 Wound Bed Periwound skin Left Plantar ?? 1.0 cm x 0.8 cm x 0.7 cm Um: @6 0.8 cm @9 0.6 cm Palpable bone 0.7 x 0.7 x 0.5 cm 0.7 x 1.0 x 0.5 cm 75% smooth pink non-granulating 25% dark gaxiola Visible bone Mild erythema with increased warmth slightly more than contralateral side PHOTO Left plantar Right plantar Treatment: Analgesia: 2% lidocaine gel administered prior to debridement [x] Order entered and documented on JUL Conservative Sharp Debridement: removing devitalized tissue using a #15 blade and curette removing less than 20 cm sq down to and including subcutaneous tissue to reveal healthier tissue. Bleeding: Yes; small amount controlled with Normal Saline rinse Wound irrigated with VASHE wound cleanser using a #18 Angiocath Dressings/wraps applied: Applied Z-guard to periwound skin Applied Aquacel AG ribbon loosely into wound bed and fanned over external wound bed Covered with Mepilex foam and medipore tape Right Plantar: Applied non border foam and secured with medipore Tape. Bilateral Met pads to shoes. The patient's own compression stockings were applied to the bilateral lower extremities. Pain Reassessment post treatment (0-10): 3 Assessment: Mahin Ramos is a 64 y.o. 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 The left plantar wound has deteriorated with increased drainage, odor, increase in all wound dimensions. There is palpable bone to the lateral aspect around 3:00 o'clock. DONTAE's 10/25/19 with no LEAD. 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 There is no evidence of osteomyelitis of the residual fifth metatarsal. Xray of right foot showed findings concerning for osteomyelitis centered at the first interphalangeal joint. The right plantar ulcer and hallux remains healed. Dr. Gómez consulted and she also examined the patient. A wound culture was obtained and a prescription for Bactrim for 10 days was ordered with side effects reviewed. Will follow results to check sensitivities. Plan to continue Aquacel AG to left plantar for antimicrobial and exudate management and non border foam to right plantar and right anterior lower leg for protection and exudate. He continues to wear the forefoot offloading shoe on the left foot and a hexagon offloading shoe on the right foot with added met pads to these and slippers he wears at home on occasion. He will follow up here at the [facility] in one week or sooner if he has any concerns. He has previously ordered custom shoes that he will resume wearing once wounds heal. We reviewed signs and symptoms of infection and when to seek medical treatment. The patient verbalized understanding and agreement with the plan of care and will contact us with any questions or concerns. ?? MRI of bilateral feet to evaluate for osteo scheduled for 03/17/20, with possible bone biopsy with Dr. Gómez pending results. He reports he will have his labs drawn after this appt for CRP, Sed rate, CBC. ?? Wound(s) currently deteriorating, Left plantar Barriers to healing: Co-morbidities, Tobacco usage, Plan: cont local wound care Offload Antibiotic therapy (on Bactrim) Monitor culture results MRI of bilateral feet scheduled for 03/17/20 Follow up: Return to [facility] Center in 2 days with Leah Vega APRN to review labs and wound check, Assess if more acute disposition to the ED is warranted at that time. Post Visit Instructions (Home Health Agency and/or patient Left Plantar Change dressing every 2 days or sooner for 50% or greater strike through drainage. ?? 1. Remove old dressing. 2. Cleanse wound with wound cleanser or normal saline and gauze. 3. Apply zinc to dmitriy-wound. 4. Cut a piece of Aquacel AG ribbon to cover ulceration and fan fold over, leaving long tail. 5. Secure the dressing in place using Medipore tape. 6. Secure edges of dressing with skin prep. ?? Right bottom of foot: Change dressing every 2 days or sooner for 50% or greater strike through drainage. ?? 1. Remove old dressing. 2. Cleanse wound with wound cleanser or normal saline and gauze. 3. Apply skin prep to periwound skin. 4. Cover wound bed with a Mepilex non border, secured with medipore tape 5. Secure edges of dressing with skin prep. ?? Please report to the Emergency Department if you develop signs/symptoms of infection, this may include the following: Fever Sweats Chills Nausea, Vomiting or Diarrhea: general malaise Spiking Blood Glucose levels, unprovoked Around the wound site: Redness Warmth Purulent drainage Malodor ?? Try to eat 5-6 servings of following foods: ?? High Protein foods: Beef, chicken, fish Beans, Lentils, peanut butter Brazilian and regular yogurt Cheese, eggs ?? Boost, Ensure shakes Protein powder in a smoothie of your choice ?Foot Care ?? If you have high blood pressure and/or high cholesterol, work with your health care provider to lower it. ? Never walk barefoot, neither indoors or outdoors. ? Examine your feet daily for redness, warmth, blisters, ulcers, scratches, cuts and nail problems from shoes or other sources. ??Look at the bottoms and between toes. ??Use a mirror or have someone else look for you. ? Call your doctor immediately if you experience any injury to your feet. ??Even a minor injury is an emergency for a patient at high risk. ? Examine your shoes for foreign objects, protruding nails and rough spots inside before putting them one. ??Look and feel. ?? Buy shoes late in the day. ??Never buy shoes that need ???breaking in?? . ??They should be immediately comfortable. ??Request shoes with deep toe boxes and made of soft leather upper material. ?Lubricate your entire foot after bathing or if your skin is dry, but avoid putting cream between toes. ??Avoid Vaseline, petroleum jelly, mineral oil and baby oil. ??Waller???s wool may be used between toes. ??Diabetaderm is one good foot cream option. ? Do not soak your feet. ??Skin can break down and won???t heal well. ? Avoid direct heat (heating pads, hot water pads, electric blankets, radiator, fireplaces). ??You can burn your feet without knowing it. ??Water temperature should be less than 92 degrees. ??Estimatewith your elbow or bath thermometer (You can get one in any store that sells infant products.) ?? Don???t use any tape or sticky products such as corn plasters on your feet. ??The can tear your skin. ?? Do not file, remove or shave calluses or corns yourself, unless instructed otherwise. ??These should be taken care of by your physician or yoga teacher. ? Avoid using any chemical or strong antiseptic solutions on your feet. ??Iodine, salicylic acid, corn/callus removers may burn the skin. documented in this encounter Plan of Treatment Upcoming Encounters Date Type Specialty Care Team Description 12/11/2021 Appointment Radiology 12/11/2021 Office Visit Orthopaedics Marion Tavera APRN [facility] ORTHOPAEDIC SURG [place], [place] [address] (Wo rk) 01/15/2022 Appointment Radiology Stiven Cervantes MD [facility] Pulmonary Medici [place], [place] [address] (Wo rk) Scheduled Procedures Name [...] Action Plan 9:07 AM EDT) [facility] Note: Formatting of this note might be d ifferent from the original. Patient Goal: To experience less side ef fects than his past regimen of Peg and Ribavirin Timeframe to meet goal: 3 months of ther apy documented as of this encounter Procedures Procedure Name Priority Date/Time Associated Diagnosis Comme nts ANAEROBIC CULTURE Routine 03/07/2020 3:30 PM Neuropathic ulcer of Results for this EDT foot, left, with fat procedu re are in layer exposed the results section. HC WOUND/ABSCESS CX Routine 03/07/2020 3:30 PM Neuropathic ulc er of EDT foot, left, with fat layer exposed ABSCESS/WOUND Routine 03/07/2020 3:30 PM Neuropathic ulcer of Results for this ASPIRATE CULTURE EDT foot, left, with fat pro cedure are in layer exposed the results section. documented in this encounter Results (ABNORMAL) Anaerobic Culture (03/07/2020 3:30 PM EDT) [facility] Method Time Signature Anaerobic Moderate Bacteroides fragilis Group LLOYD Culture Moderate Bacteroides species H [facility] () [facility] Organism Bacteroides LLOYD fragilis Group [facility] () [facility] Organism Bacteroides LLOYD species (A) [facility] Specimen Anatomical Collection Method Collection Time Receive d Time (Source) Location / / Volume Laterality Specimen from STRUCTURE OF LEFT 03/07/2020 3:30 PM 5:00 ulcer (specimen) FOOT / Unknown EDT PM EDT Comment: ULCER PROBING TO BONE Resulting Agency Comment Spec In Lab Maia Gómez DPM MICROBIOLOGY - GENERAL ORDER SILAS Performing Organization Address City/State/[place] [address] (ABNORMAL) Abscess/Wound Aspirate Culture (03/07/2020 3:30 PM EDT) Component Value Ref Test Analysis Performed At [facility] Range Method Time Signature Abscess/Wound Moderate Staphylococcus aureus LLOYD Aspirate Moderate Beta-hemolytic Streptococcus, Group C or G [facility] Culture Many mixed bacterial morphotypes suggestive of normal cutaneous elba [facility] Gram Stain Many Neutrophils seen LLOYD Many Gram Positive Cocci [facility] Moderate Gram Positive Rods [facility] Few Gram Negative [facility] Organism Staphylococcus LLOYD aureus (A) [facility] Organism Beta-hemolytic LLOYD Streptococcus, EDGAR Group C or G () [facility] Specimen Anatomical Collection Method Collection Time Receive d Time (Source) Location / / Volume Laterality Specimen from STRUCTURE OF LEFT 03/07/2020 3:30 PM 5:00 ulcer (specimen) FOOT / Unknown EDT PM EDT Comment: ULCER PROBING TO BONE Resulting Agency Comment Spec In Lab Organism Antibiotic Method Susceptibility Staphylococcus aureus Cefazolin VITEK 2 METHOD Sensitive Staphylococcus aureus Ceftriaxone VITEK 2 METHOD Sensitive Staphylococcus aureus Ciprofloxacin VITEK 2 METHOD Sensitive Staphylococcus aureus Clindamycin VITEK 2 METHOD Sensitive Staphylococcus aureus Erythromycin VITEK 2 METHOD Sensitive Staphylococcus aureus Gentamicin VITEK 2 METHOD Sensitive Comment: Gentamicin is not a ppropriate for Bollinger-therapy. Staphylococcus aureus Levofloxacin VITEK 2 METHOD Sensitive Staphylococcus aureus Oxacillin VITEK 2 METHOD Sensitive Comment: Penicillin resistant, Nafcil gina susceptible Staphylococci are resistant to B-lactamase labile Penicilli ns including Ampicillin and Piperacillin, but susceptible to B-lactamase s tabile Penicillins (Nafcillin), B-lactamase inhibitor combinations, firs t and second generation Cephalosporins including Cefazolin, and to Cefepime a nd Meropenem. Staphylococcus aureus Trimethoprim/Sulfa VITEK 2 METHOD Sensiti ve Staphylococcus aureus Tetracycline VITEK 2 METHOD Sensitive Staphylococcus aureus Vancomycin VITEK 2 METHOD Sensitive Maia Gómez DPM MICROBIOLOGY - GENERAL ORDER SILAS Performing Organization Address City/State/[place] [address] documented in this encounter Visit Diagnoses Diagnosis Neuropathic ulcer of foot, left, with fa t layer exposed Cellulitis of foot, left Cellulitis and abscess of foot, except t oes documented in this encounter Care Teams Blanker Operator Relationship Specialty Start Date End Date Brian Fall APRN PCP - General Internal Medicine 04/07/[address] [place] [phone] documented as of this encounter
--- OUTSIDE RECORDS SUMMARY | 2021-11-30 08:21 | XMS_ITS | Encounter Summary ---
:1955 [place] [address] Care Team Providers Name Role Phone Brian Fall APRN Primary Care Provider Encounter Details Date Type Department Care Team Description 11/24/2019 Telephone Podiatry at [facility] Maia Gómez DPM [facility] jaquelin [facility] [place] [phone] [place], [place] [id number] [phone] (Wo rk) Social History Tobacco Use Types [...] 12/11/2021 Office Visit Orthopaedics Marion Tavera APRN [facility] ORTHOPAEDIC SURG [place], [place] [address] (Wo rk) 01/15/2022 Appointment Radiology Stiven Cervantes MD [facility] Pulmonary Mediccharlie villegas [place], [place] [address] (Wo rk) Scheduled Procedures Name [...] on filedocumented in this encounter Care Teams Petal Shaper Hand Relationship Specialty Start Date End Date Brian Fall APRN PCP - General Internal Medicine 04/07/[address] [place] [phone] documented as of this encounter
--- OUTSIDE RECORDS SUMMARY | 2021-11-30 08:21 | XMS_ITS | Encounter Summary ---
:1955 [place] [address] Care Team Providers Name Role Phone Brian Fall APRN Primary Care Provider Encounter Details Date Type Department Care Team Description 11/11/2019 Office Visit Wound Care at [facility], Neuro pathic ulcer of foot, left, with fat layer exposed; [facility] RN Neuropath ic ulcer of foot, right, [place] [address] Social History Tobacco Use Types Packs/Day Years Used Date Current Every Day Smoker Cigars, Cigarettes 1 42 Smokeless Tobacco: Never Used Alcohol Use Standard Drinks/Week Comments Yes 24 (1 standard drink = 0.6 oz pure alcoh ol) Sex Assigned at Date Recorded Not on file documented as of this encounter Last Filed Vital Signs Vital Sign Reading Time Taken Comments Blood Pressure 161/74 11/11/2019 1:55 PM EDT Pulse 54 11/11/2019 1:55 PM EDT Temperature 36.7 ??C (98 ??F) 11/11/2019 1:55 PM EDT Respiratory Rate 20 11/11/2019 1:55 PM EDT Oxygen Saturation 98% 11/11/2019 1:55 PM EDT Inhaled Oxygen Concentration - - Weight - - Height - - Body Mass Index - - documented in this encounter Patient Instructions Patient InstructionsRadha Salazar, RN - 11/11/2019 1:45 PM EDT Iodosorb Nursing to change dressing q Friday, Friday and [place] and as needed for dressing with 50% or greater strike though drainage. 1. Cleanse wound with dermal wound cleanser and gauze. 2. Apply skin prep to periwound skin. 3. Apply 1/8 - 1/4 inch thickness of Iodosorb gel to wound bed. 4. Cover with a Mepilex foam dressing. ?? Please report to the Emergency Department if you develop signs/symptoms of infection, this may include the following: Fever Sweats Chills Nausea, Vomiting or Diarrhea: general malaise Spiking Blood Glucose levels, unprovoked Around the wound site: Redness Warmth Purulent drainage Malodor ?? Try to eat 5-6 servings of following foods: ?? High Protein foods: Beef, chicken, fish Beans, Lentils, peanut butter Surinamese and regular yogurt Cheese, eggs ?? Boost, Ensure shakes Protein powder in a smoothie of your choice ?? Should here from our mill order scheduler for follow up appointment and scheduling with DONTAE's ?? Foot Care ?? 1. DO NOT SMOKE! It decreases the blood supply to your feet. If you smoke, QUIT. 2. If you have high blood pressure and/or high cholesterol, work with your health care provider to lower it. 3. Never walk barefoot, neither indoors or outdoors. 4. Examine your feet daily for redness, warmth, blisters, ulcers, scratches, cuts and nail problems from shoes or other sources. Look at the bottoms and between toes. Use a mirror or have someone else look for you. 5. Call your doctor immediately if you experience any injury to your feet. Even a minor injury is anemergency for a patient at high risk. 6. Examine your shoes for foreign objects, protruding nails and rough spots inside before putting them one. Look and feel. 7. Lubricate your entire foot after bathing or if your skin is dry, but avoid putting cream between toes. Avoid Vaseline, petroleum jelly, mineral oil and baby oil. Waller???s wool may be used between toes. Diabetaderm is one good foot cream option. 8. Do not soak your feet. Skin can break down and won???t heal well. 9. Avoid direct heat (heating pads, hot water pads, electric blankets, radiator, fireplaces). You can burn your feet without knowing it. Water temperature should be less than 92 degrees. Estimate with your elbow or bath thermometer (You can get one in any store that sells infant products.) 10. Don???t use any tape or sticky products such as corn plasters on your feet. The can tear your skin. 5. Do not file, remove or shave calluses or corns yourself, unless instructed otherwise. These should be taken care of by your physician or manager mining. 6. Avoid using any chemical or strong antiseptic solutions on your feet. Iodine, salicylic acid, corn/callus removers may burn the skin. documented in this encounter Progress Notes Radha Salazar RN - 11/11/2019 1:45 PM EDT Images from the original note were not included. [facility] Progress Note HPI: Mahin Ramos is a 64 y.o. male who returns for follow up. HPI from previous visit: Mahin Ramos is a 64 y.o. male referred by Brian Fall APRN for evaluation of bilateral foot ulcers. 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 He was admitted to and had amputation and IV abx. Left foot with MRI in 08/2019 showing small area of altered bone marrow signal intensity within fourth metatarsal had and fourth proximal phalanx deep to the softtissue ulceration is consistent with osteomyelitis. He completed 42 days of Linezolid 600 mg on 10/13/19 and had 10 day course of cephalexin beginning of August 2019. He is a 1 pack per day smoker. He hashistory of neuropathy, but is not a diabetic. He had alcohol dependence, hepatitis C (managed by GI), cirrhosis, HTN, and hyperlipidemia. He has not been using a specific dressings. ?? He has custom made shoes from [employer], he received in 09/2019. ABIs 10/25/19: RIGHT: No LEAD. LEFT: No LEAD. X-RAY OF LEFT FOOT 10/25/2019 IMPRESSION Postoperative changes of the fifth ray. No gross osseous destruction to suggest advanced osteomyelitis. Type of Wound Neuropathic ulcer. Home Health Agency: No Subjective: Patient denies fever, chills, sweats. Denies nausea, vomiting, loose bowels. Last FSBS: N/A, patient is not a diabetic. Appetite is good Taking protein supplements: No, but is eating protein throughout the day. Activity/Mobility: Fully ambulatory Current pain level (see patient intake data) Analgesia needed prior to procedure? no Objective: Vitals: BP 161/74 Pulse 54 Temp 36.7 ??C (98 ??F) (Oral) Resp 20 SpO2 98% BP today is slightly elevated. Patient is taking blood pressure medications. Denies symptoms. Dressing was removed. There was small amount serosanguinous drainage. Malodor no Erythema no Pulses: Dorsalis Pedis: Right:palpable Left: palpable Posterior Tibia: Right: palpable Left: palpable Measurements (cm) Right Left Calf girth 37.0 cm 38.0 cm Ankle girth 25.0 cm 26.0 cm Wound location Measurement 11/11/2019 Measurement 11/03/19 Wound Bed Periwound skin Left Plantar ?? 1.0 cm x 1.0 cm x 0.4 cm 1.0 x 1.0 x 0.3 cm 100% mixed pink and white tissue. Non-granulating [place], dry and intact Right Plantar (5th MTH) 0.3 cm x 0.1 cm x 0.2 cm 0.2 x 0.3 x 0.1 cm 100% red, moist non-granultaing tissue [place], dry and intact PHOTO Left Plantar Right Plantar Treatment: Analgesia: none administered prior to debridement [] Order entered and documented on [facility] [employer] Debridement: removing devitalized tissue using a #15 blade and a curette removingless than 20 cm sq down to and including subcutaneous tissue to reveal healthier tissue. Bleeding: Yes; small amount controlled with Normal Saline rinse Wound cleansed with normal saline Dressings/wraps applied: Skin prep was applied to the periwound skin. A small amount of Iodosorb wasapplied to each wound bed and then covered with a Mepilex border dressing. The patient is using custom offloader pads inserted into each shoe bilaterally and wearing front forefoot offloader shoe on the left lower extremity. A double layer Tubigrip, size F, for medium tissue support was applied to the bilateral lower extremities. Pain Reassessment post treatment (0-10): 0 Assessment: Mahin Ramos is a 64 y.o. 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 An x-ray was completed of the left foot on 10/25/2019, which was not concerning for osteomyelitis. There are no local signs of infection on examination today. We will continue using Iodosorb on each wound bed for its absorptive properties and to help control bacterial loads. The patient is completing his own dressing changes at home. He continues to wear offloading pads in his bilateral shoes. He has a forefoot offloading shoe on the left lower foot, but reports that he has not been wearing this consistently while at home. We discussed the importance of using the shoe consistently to help alleviate the pressure on the wound. He verbalized understanding and states that he will try to wear it more often. He also reports that he tolerated the Medigrips, but took them off half way through the week and did not put them back on. We di scussed the importance of wearing compression consistently to faciliate wound healing. We also reviewed the importance of increasing protein intake to assist with wound healing. The patient is having an MRI of his abdomen today to evaluate for Crohn's or a SBO due to chronic vomiting. The patient willcontinue to follow up here at the [facility] weekly or sooner if there are any concerns. He verbalized understanding and agreement with the plan of care and will contact us with any questions or concerns. Wound(s) currently stalled Barriers to healing: Comorbidities Plan: -Continue with local wound care. -Follow up with manager mining. Follow up: Return to Wound Healing Center in approximately 1 week. Post Visit Instructions (Home Health Agency and/or patient): Iodosorb Nursing to change dressing q Friday, Friday and Friday and as needed for dressing with 50% or greater strike though drainage. 1. Cleanse wound with dermal wound cleanser and gauze. 2. Apply skin prep to periwound skin. 3. Apply 1/8 - 1/4 inch thickness of Iodosorb gel to wound bed. 4. Cover with a Mepilex foam dressing. ?? Please report to the Emergency Department if you develop signs/symptoms of infection, this may include the following: Fever Sweats Chills Nausea, Vomiting or Diarrhea: general malaise Spiking Blood Glucose levels, unprovoked Around the wound site: Redness Warmth Purulent drainage Malodor ?? Try to eat 5-6 servings of following foods: ?? High Protein foods: Beef, chicken, fish Beans, Lentils, peanut butter [place]in[place]e and regular yogurt Cheese, eggs ?? Boost, Ensure shakes Protein powder in a smoothie of your choice ?? Should here from our mill order scheduler for follow up appointment and scheduling with DONTAE's ?? Foot Care ?? 1. DO NOT SMOKE! It decreases the blood supply to your feet. If you smoke, QUIT. 2. If you have high blood pressure and/or high cholesterol, work with your health care provider to lower it. 3. Never walk barefoot, neither indoors or outdoors. 4. Examine your feet daily for redness, warmth, blisters, ulcers, scratches, cuts and nail problems from shoes or other sources. Look at the bottoms and between toes. Use a mirror or have someone else look for you. 5. Call your doctor immediately if you experience any injury to your feet. Even a minor injury is anemergency for a patient at high risk. 6. Examine your shoes for foreign objects, protruding nails and rough spots inside before putting them one. Look and feel. 7. Lubricate your entire foot after bathing or if your skin is dry, but avoid putting cream between toes. Avoid Vaseline, petroleum jelly, mineral oil and baby oil. Waller???s wool may be used between toes. Diabetaderm is one good foot cream option. 8. Do not soak your feet. Skin can break down and won???t heal well. 9. Avoid direct heat (heating pads, hot water pads, electric blankets, radiator, fireplaces). You can burn your feet without knowing it. Water temperature should be less than 92 degrees. Estimate with your elbow or bath thermometer (You can get one in any store that sells infant products.) 10. Don???t use any tape or sticky products such as corn plasters on your feet. The can tear your skin. 5. Do not file, remove or shave calluses or corns yourself, unless instructed otherwise. These should be taken care of by your physician or manager mining. 6. Avoid using any chemical or strong antiseptic solutions on your feet. Iodine, salicylic acid, corn/callus removers may burn the skin. documented in this encounter Plan of Treatment Upcoming Encounters Date Type Specialty Care Team Description 12/11/2021 Appointment Radiology 12/11/2021 Office Visit Orthopaedics Marion Tavera APRN [facility] DR ORTHOPAEDIC SURG [place], [place] [address] (Wo rk) 01/15/2022 Appointment Radiology Stiven Cervantes MD [facility] Pulmonary Medici [place], [place] [address] (Wo rk) Scheduled Procedures Name [...] exposed documented in this encounter Care Teams Gas Derrick Operator Relationship Specialty Start Date End Date Brian Fall APRN PCP - General Internal Medicine 04/07/[address] [place] [phone] documented as of this encounter
--- OUTSIDE RECORDS SUMMARY | 2021-11-30 08:21 | XMS_ITS | Encounter Summary ---
:1955 [place] [address] Care Team Providers Name Role Phone Brian Fall APRN Primary Care Provider Encounter Details Date Type Department Care Team Description 12/24/2019 Office Visit Wound Care at [facility], Neuro pathic ulcer of foot, right, with fat layer exposed; [facility] RN Neuropath ic ulcer of foot, left, [place] [address] Social History Tobacco Use Types Packs/Day Years Used Date Current Every Day Smoker Cigars, Cigarettes 1 42 Smokeless Tobacco: Never Used Alcohol Use Standard Drinks/Week Comments Yes 24 (1 standard drink = 0.6 oz pure alcoh ol) Sex Assigned at Date Recorded Not on file documented as of this encounter Last Filed Vital Signs Vital Sign Reading Time Taken Comments Blood Pressure 153/75 12/24/2019 10:24 AM EDT Pulse 52 12/24/2019 10:24 AM EDT Temperature 36.6 ??C (97.8 ??F) 12/24/2019 10:24 AM EDT Respiratory Rate 18 12/24/2019 10:24 AM EDT Oxygen Saturation 95% 12/24/2019 10:24 AM EDT Inhaled Oxygen Concentration - - Weight - - Height - - Body Mass Index - - documented in this encounter Progress Notes Radha Salazar, RN - 12/24/2019 10:30 AM EDT Images from the original note [...] GI), cirrhosis, HTN, and hyperlipidemia. He has custom made shoes from [employer], he received in 09/2019. ABIs 10/25/19: RIGHT: No LEAD. LEFT: No LEAD. X-RAY OF LEFT FOOT 10/25/2019 IMPRESSION Postoperative changes of the fifth ray. No gross osseous destruction to suggest advanced osteomyelitis. MRI 12/15/2019: IMPRESSION Imaging was focused on the lateral aspect of the foot and the first ray was incompletely imaged. ?? Bone marrow edema centered at the fourth MTP joint is likely stress related, reactive edema, or osteitis. No evidence of osteomyelitis of the fourth metatarsal head. ?? 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 There is no evidence of osteomyelitis of the residual fifth metatarsal. Type of Wound Neuropathic ulcer. Home Health Agency: No Subjective: Patient denies fever, chills, sweats. Denies nausea, vomiting, loose bowels. Last FSBS: N/A, patient is not a diabetic. Appetite is good Taking protein supplements: No, but is eating protein throughout the day. Activity/Mobility: Ambulatory w. assistive device Current pain level (see patient intake data) Analgesia needed prior to procedure? no Objective: Vitals: BP 153/75 Pulse 52 Temp 36.6 ??C (97.8 ??F) Resp 18 SpO2 95% Dressings were removed. There was small amount to moderate amount of serosanguinous drainage. Malodor no Erythema no Pulses: Dorsalis Pedis: Right:palpable Left: palpable Posterior Tibia: Right: palpable Left: palpable Measurements (cm) Right Left Calf girth 36.0 cm 36.5 cm Ankle girth 29.5 cm 29.5 cm Wound location Measurement 12/23/2019 Measurement 12/15/19 Wound Bed Periwound skin Right anterior lower leg-new wound Superficial open area. 1.2cm L x 2.5cm W x 0.1cm D 100% red, moist tissue ??Mild erythema with no increased warmth or tenderness. Left Plantar ?? 0.8 cm x 0.8 cm x 0.1 cm 0.7cm L x 0.9cm W x 0.2 cm D 100% smooth pink non- granulating 100% white-yellow tissue Right Plantar??(5th MTH) Superficial area 0.1 x 0.3 x <0.1 cm 100% red, moist tissue [place], dry and intact Right hallux (dorsal) No open areas 0.7 x 0.5 x 0.1 cm No open areas [place], dry, peeling ?? PHOTO Left Plantar Right Plantar Right Anterior Lower Extremity Treatment: Analgesia: none administered prior to debridement [] Order entered and documented on [facility] [employer] Debridement: removing devitalized tissue using a #15 blade, a curette and Iris scissors removing less than 20 cm sq down [...] is using custom offloader pads inserted into the right shoe bilaterally and wearing front forefoot offloader shoe on the left lower extremity. I removed the offloading pad in the offloading shoe today as it appearedto be laying directly under the wound. A double layer Tubigrip, size F latex free, for medium tissue support was applied to the bilateral lower extremities. Left plantar: Applied Promogran Flaco to the wound bed, and covered with Mepilex non-bordered foam and Medipore tape. Right Plantar: Covered the area with a piece of Mepilex non-bordered foam and Medipore tape. Right hallux: Applied a Mepilex baby border to the area for protection. Right anterior lower leg: Applied TAC cream 0.1% to the periwound area for contact dermatitis. We then applied a Mepilex border dressing to the area. Applied a double layer Medigrip, size F latex-free, to the bilateral lower extremities for medium tissue support. Pain Reassessment post treatment (0-10): 0 Assessment: Mahin Ramos is a 64 y.o. 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 He has history of left 5th toe amp due to osteo two years ago. The patient completed his course of Keflex as of yesterday. There continue to be an area of mild erythema on the right lower extremity, but no increased warmth or tenderness. Niki Stockton APRN, joined the visit to assess. No additional antibiotics were ordered today, and TAC 0.1% cream was applied to the area of contact dermatitis. The erythema was outlined, and the patient and his will seek emergency medical attention over the weekend if the area extends beyond the outline. There are no local signs of local wound infection on examination today. The left plantar foot wound has decreased in depth today. We will continue the same treatment regimen at this time. The patient's is assisting him with wound care. He is wearing a diabetic shoe on the right foot and a forefoot offloading shoe on the left foot. We applied a double layer Medigrip, size F latex-free, to the bilateral lower extremities for medium tissue support. He will follow up here at the [facility] in one week or sooner if he has any concerns. Dr. Gómez plans to perform a bone biopsy next week. Patient verbalized understanding and agreement with the plan [facility] and will contact us with any questions or concerns. Wound(s) currently stalled Barriers to healing: Comorbidities Plan: -Continue with local wound care. -Bone biopsy by Dr. Gómez next week, 12/30/2019. Follow up: Return to Wound Healing Center in approximately 1 week. Post Visit Instructions (Home Health Agency and/or patient): Left Plantar Foot Change dressing every 2-3 days or sooner for 50% or greater strike through drainage. For heavily exuding or infected wounds it may be necessary to retreat the wound with PROMOGRAN FLACO??? Matrix every 24 hours. 1. Remove old dressing. 2. Cleanse wound with wound cleanser or normal saline and gauze. 3. Apply skin prep to periwound skin. 4. Apply Promogran Flaco directly into wound bed. May moisten with a few drops of normal saline to activate if the wound is not draining. 5. Cover wound bed with Mepilex non-bordered foam and secure with Medipore tape OR similar. 6. Secure edges with skin prep. Right Plantar Foot Change dressing every 2-3 days or sooner for 50% or greater strike through drainage. 7. Remove old dressing. 8. Cleanse wound with wound cleanser or normal saline and gauze. 9. Apply skin prep to periwound skin. 10. Cover wound bed with a Mepilex non-bordered foam and secure with Medipore tape OR Mepilex Lite dressing OR similar. 11. Secure edges of dressing with skin prep. Right Lower Extremity Change dressing every 2-3 days or sooner for 50% or greater strike through drainage. 12. Remove old dressing. 13. Cleanse wound with wound cleanser or normal saline and gauze. 14. Apply skin prep to periwound skin. 15. Cover wound bed with a Mepilex border dressing. 16. Secure edges of dressing with skin prep. Please report to the Emergency Department if you develop signs/symptoms of infection, this may include the following: Fever Sweats Chills Nausea, Vomiting or Diarrhea: general malaise Spiking Blood Glucose levels, unprovoked Around the wound site: Redness Warmth Purulent drainage Malodor ?? Try to eat 5-6 servings of following foods: ?? High Protein foods: Beef, chicken, fish Beans, Lentils, peanut butter Maur[place] and regular yogurt Cheese, eggs ?? Boost, Ensure shakes Protein powder in a smoothie of your choice ?? Should here from our corporate scheduler for follow up appointment and scheduling [...] taken care of by your physician or sandstone inspector repairer. 6. Avoid using any chemical or strong antiseptic solutions on your feet. Iodine, salicylic acid, corn/callus removers may burn the skin. documented in this encounter Plan of Treatment Upcoming Encounters Date Type Specialty Care Team Description 12/11/2021 Appointment Radiology 12/11/2021 Office Visit Orthopaedics Marion Tavera APRN [facility] ORTHOPAEDIC SURG [place], [place] [address] (Wo huey) 01/15/2022 Appointment Radiology Stiven Cervantes MD [facility] Pulmonary Medici [place], [place] [address] (Wo rk) Scheduled Procedures Name [...] Understanding Action Plan 9:07 AM EDT) [facility] Note: Formatting of this note might be d ifferent from the original. Patient Goal: To experience less side ef fects than his past regimen of Peg and Ribavirin Timeframe to meet goal: 3 months of ther apy documented as of this encounter Visit Diagnoses Diagnosis Neuropathic ulcer of foot, right, with f at layer exposed Neuropathic ulcer of foot, left, with fa t layer exposed documented in this encounter Care Teams Laborer General Relationship Specialty Start Date End Date Brian Fall APRN PCP - General Internal Medicine 04/07/[address] [place] [phone] documented as of this encounter
--- OUTSIDE RECORDS SUMMARY | 2021-11-30 08:21 | XMS_ITS | Encounter Summary ---
:1955 Author Organization [facility] [place] [address] Care Team Providers Name Role Phone Brian Fall APRN Primary Care Provider Reason for Referral Diagnostic Test (Routine) - Closed Specialty Diagnoses / Procedures Referred By Contact Refer red To Contact Radiology Diagnoses Foot ulcer, left, with fat layer exposed Alcohol-induced polyneuropathy Maia Gómez DPM [facility] Rad Mri Procedures MRI Foot wo Contrast Left [facility] [address] [place] [id number] [place] [address] Phone: Referral ID Status Reason Start Date Expiration Date Visits V isits Requested Authorized [id number] Closed Specialty 11/23/2019 05/25/2021 1 1 Service Requested Encounter Details Date Type Department Care Team Description 11/23/2019 [place] [facility] [place], Foot ulcer, left, with fat l ngozi exposed; [facility] KINDRA Alcohol-induced polyneuropathy Drive [facility] [id number] [place] [id number] Social History Tobacco Use Types Packs/Day Years Used Date Current Every Day Smoker Cigars, Cigarettes 1 42 Smokeless Tobacco: Never Used Alcohol Use Standard Drinks/Week Comments Yes 24 (1 standard drink = 0.6 oz pure alcoh ol) Sex Assigned at Date Recorded Not on file documented as of this encounter Progress Notes Maia Gómez, KINDRA - 11/23/2019 3:30 PM EDT Images from the original note were not included. [facility] Note Name: Mahin Ramos Age:64 y.o. MR#: [id number] Date of Service: 11/23/2019 SUBJECTIVE: Mahin Ramos is a 64 y.o. 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 Patient relates following up with wound care regularly. Relates right foot ulcer healing well, however left foot ulcer is stagnant. Patient has previously completely course of linezolid 600 mg for 42 days, ending on October 13, 2019 and course of Keflex in August 2019. Relates dressing changes every other day. Relates smoking 1 pack/day and working on smoking cessation. Relates chronic numbness in feet. Denies any constitutional symptoms today. No other pedal complaints. Allergies Allergen Reactions ??? Morphine Other (See Comments) STATES THAT IT DOES NOT TAKE HIS PAIN AWAY Past Medical History: Diagnosis Date ??? Cirrhosis Chronic HCV and history of alcohol use ??? COPD (chronic obstructive pulmonary disease) ??? Depression ??? GERD (gastroesophageal reflux disease) ??? Hepatitis C ??? HTN (hypertension) Social History Socioeconomic History ??? Marital status: [...] Sexual Activity ??? Alcohol use: Yes Alcohol/week: 24.0 - [...] file Gets together: Not on file Attends roman catholic service: Not on file Active member of [...] Social History Narrative [place] 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 Pt has been exposed to wood dust. No TB Exposure. Pt currently has lived in his home for 30 years, hardwood floor, heated by oile, hot air. Pt has long haired dog. No VNA services at this time. Family History Problem Relation Age of Onset ??? Cancer Father ??? Osteoarthritis Mother ??? Cancer Paternal Uncle ??? Cancer Paternal Grandmother Current Outpatient Medications on File Prior to Visit Medication Sig Dispense Refill ??? furosemide (Lasix) 80 mg Tablet Take by mouth as needed. ??? buspirone HCl (BUSPIRONE ORAL) Take by mouth daily. ??? ondansetron ODT (Zofran-ODT) 4 mg Tablet, Rapid Dissolve Take 1 tablet by mouth every 8 hours. 90 tablet 1 ??? donepezil (ARICEPT) 10 mg Tablet Take 1 tablet by mouth nightly. 30 tablet 11 ??? citalopram (CELEXA) 20 mg Tablet Take 20 mg by mouth Daily. ??? chlorthalidone (HYGROTEN) 25 mg Tablet Take 25 mg by mouth daily. 0 ??? omeprazole (PRILOSEC) 40 mg Capsule, Delayed Release(E.C.) Take 40 mg by mouth daily. 1 ??? methadone HCl (METHADONE ORAL) Take 140 mg by mouth daily. ??? SPIRIVA RESPIMAT [...] 1 tablet by mouth daily. 0 ??? acetaminophen (TYLENOL) 500 mg Tablet Take 1 tablet by mouth every 8 hours. (Patient taking differently: Take 500 mg by mouth every 8 hours as needed.) ??? DULERA 100-5 mcg/actuation HFA Aerosol Inhaler inhale 2 puffs by mouth prn 0 ??? gabapentin (NEURONTIN) 600 mg Tablet Take 2 tablets by mouth 3 times daily. ??? multivitamin (THERAGRAN) tablet Take 1 tablet by mouth daily. No current facility-administered medications on file prior to visit. ROS: MSK: +history of partial foot amputation (secondary to osteomyelitis) Skin: +foot ulcers The remainder of 10 ROS were reviewed and negative. OBJECTIVE: GEN: Patient is AAOX3, NAD. Gait stable and non-antalgic. DERM: Skin atrophic and diffusely xerotic with ulcerations noted plantar aspect of bilateral forefoot--right improved, left stagnant. Wound beds granular with slight fibrosis to left plantar ulceration. Moderate serous exudate left. Decreased hair growth noted bilaterally. No fissures, drainage, or purulence bilaterally. No evidence of acute infection bilaterally. Interspaces 1-4 bilaterally dry and clear with no signs of fungal or bacterial infection. No erythema or proximal streaking. No fluctuance. No exposed bone or tendon. Surrounding skin callus. VASC: Dorsalis pedis +1/4 bilaterally and posterior tibial pulse +1/4 bilaterally. Capillary refill 3 seconds. No edema noted. No varicose veins. No claudication, no rest pain, no calf pain. NEURO: Epicritic sensation diminished bilaterally. Sharp/dull/protective sensation diminished bilateral forefoot. MSK: No significant pain on palpation secondary to advanced neuropathy. Prominent metatarsal heads plantar aspect bilaterally. Active ROM noted of pedal and ankle joints bilaterally. The structure of the feet is distorted presently. There are hot spots or calluses. No evidence of loss of the fat pad. Previous amputation sites left foot well-healed. ?? DIAGNOSTICS: ICD10 Diagnosis Code: L97.422, L97.512 10/25/2019 DONTAE Results ?? Findings: ?? Right ?Pressure (mmHg) ?? DONTAE ??Waveform ?? [...] ankle/brachial pressure ratios and ankle Doppler waveforms. EXAMINATION: XR FOOT MIN 3 VIEWS LEFT (GENERIC) 10/25/2019 ?? CLINICAL HISTORY: left foot chronic ulcer, rule out osseous changes (as entered by ordering provider in the order requisition) ? TECHNIQUE: 3 views LEFT foot. Weightbearing AP, oblique, and lateral views of the left foot. ?? COMPARISON: Left foot radiographs 07/12/2019. ?? 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 There is diffuse osseous demineralization. There is no gross osseous destruction. Rounded ossicles in the soft tissues adjacent to the fourth metatarsal shaft are unchanged. ?? 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 There is Achilles tendinosis and plantar calcaneal enthesophytes. There are dorsal osteophytes of the midfoot. ?? Flexion deformity of the first toe interphalangeal joint is unchanged. ?? IMPRESSION Postoperative changes of the fifth ray. No gross osseous destruction to suggest advanced osteomyelitis. If there is high clinical concern for underlying osteomyelitis, MR would be more sensitive imaging modality. MRI of left foot 08/2019 ?? Pertinent labs:?? 10/01/19 ?? 10/01/19: CRP: 4.20 ?? ASSESSMENT: Bilateral foot ulcers--uninfected, rule out osteomyelitis left foot Peripheral neuropathy secondary to alcohol dependence Tobacco use History of partial digital amputations/osteomyelitis left foot PLAN: Patient seen and evaluated. Educated patient on condition and treatment options. Counseling provided on wound care and peripheral neuropathy I reviewed patient's recent radiographs of left foot and labs: alb/ESR WNL, CRP elevated Reviewed DONTAE/TCPO2 results: WNL Ordered left foot MRI without contrast, follow up results Explained to patient risks of developing wounds, infections including bone infection, sepsis, and other complications in feet, particularly at sites of open ulcerations Explained if MRI shows osseous changes, I would strongly recommend scheduling for bone biopsy/bone culture. Will coordinate with wound care. Discussed at length with patient importance of smoking cessation Wound debridement by wound care earlier today. Continue with dressing as per wound care. Daily foot inspection and moisturization advised. Continue with offloading shoe. Tall walking boot if failure to improve. Strictly no barefoot ambulation. Follow up with PCP regularly for continued DM management. Signs and symptoms of infection reviewed and provided below. Advised patient to seek prompt medical care if any worsening or changes noted Answered all questions. Patient verbalized understanding of all instructions FOLLOW UP: 1 week wound care, 3 weeks or sooner if any concerns arise Please report to the Emergency Department if you develop signs/symptoms of infection which may include the following: Fever Sweats Chills Nausea, Vomiting or Diarrhea General malaise Spiking Blood Glucose levels, unprovoked On the feet: Increased pain Swelling or edema Redness Warmth Pus Malodor Contact directly with any above symptoms Friday-Friday 8:00AM-4:00PM. If weekends/holidays/evenings,please report to the Emergency Department. Dr. Maia Gómez DPM Freezer Machine Operator, [facility] documented in this encounter Plan of Treatment Upcoming Encounters Date Type Specialty Care Team Description 12/11/2021 Appointment Radiology 12/11/2021 Office Visit Orthopaedics Marion Tavera APRN [facility] ORTHOPAEDIC SURG [place], [place] [address] (Wo rk) 01/15/2022 Appointment Radiology Stiven Cervantes MD [facility] Pulmonary Mediccharlie villegas [place], [place] [address] (Wo rk) Scheduled Procedures Name [...] ther apy documented as of this encounter Results MRI Foot wo Contrast Left (12/15/2019 3:00 PM EDT) Anatomical Region Laterality Modality Foot Left Magnetic Resonance Specimen (Source) Anatomical Location Collection Method / Collectio n Time Received Time / Laterality Volume Impressions 12/15/2019 5:43 PM EDT Imaging was focused on the lateral aspect of the foot and the first ray was incompletely imaged. Bone marrow edema centered at the fourth MTP joint is likely stress related, reactive edema, or osteitis. No evidence of osteomyelitis of the fourth metatarsal head. Fifth metatarsal has been partially ampu tated. There is no evidence of osteomyelitis of the residual fifth meta tarsal. I have personally reviewed the image(s) and the resident's interpretation and agree with the findings, Gordon Monsivais at 5:43 PM Thank you for letting us participate in the care of this patient. For questions regarding this report, please contact e number below. ? Narrative 12/15/2019 5:43 PM EDT EXAMINATION: MRI FOOT WO CONTRAST LEFT CLINICAL HISTORY: nonhealing left foot u lcer sub 5th metatarsal head, rule out osteomyelitis any pathology/OM TECHNIQUE: Noncontrast MRI of the left foot was per formed. COMPARISON: Left foot radiograph 10/25/1999 FINDINGS: Imaging was centered over the lateral as pect of the foot including the second, third, fourth, and the partially amputat ed fifth metatarsal. There is motion artifact. There is an ap parent ulcer at the plantar aspect of the fourth metatarsal head. There is no fracture. There is mild bone marrow edema within the base of the fourth proximal phalanx and the fourth m etatarsal head. T1 marrow signal is preserved. There is no joint effusion. T here is prior amputation of the fifth metatarsal at the mid metatarsal region. The margins are well corticated. No erosions. No fluid collection. Diffuse muscular fa tty infiltration. Flexor and extensor tendons are intact. No tenosynovitis. Procedure Note Gordon Monsivais MD - 12/15/2019Formatting o f this note might be different from the original. EXAMINATION: MRI FOOT WO CONTRAST LEFT CLINICAL HISTORY: nonhealing left foot u lcer sub 5th metatarsal head, rule out osteomyelitis any pathology/OM TECHNIQUE: Noncontrast MRI of the left foot was per formed. COMPARISON: Left foot radiograph 10/25/1999 FINDINGS: Imaging was centered over the lateral as pect of the foot including the second, third, fourth, and the partially amputat ed fifth metatarsal. There is motion artifact. There is an ap parent ulcer at the plantar aspect of the fourth metatarsal head. There is no fracture. There is mild bone marrow edema within the base of the fourth proximal phalanx and the fourth m etatarsal head. T1 marrow signal is preserved. There is no joint effusion. T here is prior amputation of the fifth metatarsal at the mid metatarsal region. The margins are well corticated. No erosions. No fluid collection. Diffuse muscular fa tty infiltration. Flexor and extensor tendons are intact. No tenosynovitis. IMPRESSION Imaging was focused on the lateral aspec t of the foot and the first ray was incompletely imaged. Bone marrow edema centered at the fourth MTP joint is likely stress related, reactive edema, or osteitis. No evidence of osteomyelitis of the fourth metatarsal head. Fifth metatarsal has been partially ampu tated. There is no evidence of osteomyelitis of the residual fifth meta tarsal. I have personally reviewed the image(s) and the resident's interpretation and agree with the findings, Gordon Monsivais at 5:43 PM Thank you for letting us participate in the care of this patient. For questions regarding this report, please contact e number below. Maia Gómez DPAlvin IMG MRI ORDERABLES documented in this encounter Visit Diagnoses Diagnosis Foot ulcer, left, with fat layer exposed Alcohol-induced polyneuropathy Alcoholic polyneuropathy Foot ulcer, left, with fat layer exposed Alcohol-induced polyneuropathy Alcoholic polyneuropathy documented in this encounter Care Teams Mold Stripper Relationship Specialty Start Date End Date Brian Fall APRN PCP - General Internal Medicine 04/07/[address] [place] [id number] documented as of this encounter
--- OUTSIDE RECORDS SUMMARY | 2021-11-30 08:21 | XMS_ITS | Encounter Summary ---
:1955 [place] [address] Care Team Providers Name Role Phone Brian Fall APRN Primary Care Provider Encounter Details Date Type Department Care Team Description 02/02/2020 Office Visit Wound Care at [facility] Ne uropathic ulcer of foot, right, with fat layer exposed; [facility] LISA Neuropathic ulcer of foot, left, with fa t layer exposed; [facility] Toe ulcer, right, limited to breakdown of skin [place] [id number] [phone] Social History Tobacco Use Types Packs/Day Years Used Date Current Every Day Smoker Cigars, Cigarettes 1 42 Smokeless Tobacco: Never Used Alcohol Use Standard Drinks/Week Comments Yes 24 (1 standard drink = 0.6 oz pure alcoh ol) Sex Assigned at Date Recorded Not on file documented as of this encounter Last Filed Vital Signs Vital Sign Reading Time Taken Comments Blood Pressure 159/76 02/02/2020 4:01 PM EDT Pulse 54 02/02/2020 4:01 PM EDT Temperature 36.7 ??C (98 ??F) 02/02/2020 4:01 PM EDT Respiratory Rate 20 02/02/2020 4:01 PM EDT Oxygen Saturation 92% 02/02/2020 4:01 PM EDT Inhaled Oxygen Concentration - - Weight - - Height - - Body Mass Index - - documented in this encounter Patient Instructions Patient InstructionsNiki Stockton APRN - 02/02/2020 4:00 PM EDT Left Plantar Change dressing every 2 days or sooner for 50% or greater strike through drainage. 1. Remove old dressing. 2. Cleanse wound with wound cleanser or normal saline and gauze. 3. Apply skin prep to periwound skin. 4. Cut a piece of Hydrofera Blue Ready to fit wound bed. Apply the dressing over the wound bed with the foam side towards the wound and the shiny film side facing up. 5. Secure the dressing in place using Medipore tape. 6. Secure edges of dressing with skin prep. Right Big toe and right bottom of foot: Change dressing every 2 [...] Beef, chicken, fish Beans, Lentils, peanut butter Maldivian and regular yogurt Cheese, eggs Boost, Ensure shakes Protein powder in a smoothie of your choice Foot Care ?? If you have high blood pressure and/or high cholesterol, work with your health care provider to lower it. ?? Never walk barefoot, neither indoors or outdoors. ?? Examine your feet daily for redness, warmth, blisters, ulcers, scratches, cuts and nail problems from shoes or other sources. Look at the bottoms and between toes. Use a mirror or have someone else look for you. ?? Call your doctor immediately if you experience any injury to your feet. Even a minor injury is anemergency for a patient at high risk. ?? Examine your shoes for foreign objects, protruding nails and rough spots inside before putting them one. Look and feel. ?? Buy shoes late in the day. Never buy shoes that need ???breaking in?? . They should be immediately comfortable. Request shoes with deep toe boxes and made of soft leather upper material. ?? Lubricate your entire foot after bathing or if your skin is dry, but avoid putting cream between toes. Avoid Vaseline, petroleum jelly, mineral oil and baby oil. Waller???s wool may be used between toes. Diabetaderm is one good foot cream option. ?? Do not soak your feet. Skin can break down and won???t heal well. ?? Avoid direct heat (heating pads, hot water pads, electric blankets, radiator, fireplaces). You can burn your feet without knowing it. Water temperature should be less than 92 degrees. Estimate with your elbow or bath thermometer (You can get one in any store that sells products.) ?? Don???t use any tape or sticky products such as corn plasters on your feet. The can tear your skin. ?? Do not file, remove or shave calluses or corns yourself, unless instructed otherwise. These should be taken care of by your physician or manager outreach. ?? Avoid using any chemical or strong antiseptic solutions on your feet. Iodine, salicylic acid, corn/callus removers may burn the skin. documented in this encounter Progress Notes Niki Stockton APRN - 02/02/2020 4:00 PM EDT Images from the original note were not included. [facility] Progress Note CC: Mahin Ramos is a 64 y.o. male who returns for follow up of bilateral foot ulcers and right hallux ulcer. HPI from previous visit: Mahin Ramos is [...] hyperlipidemia. He has custom made shoes from [employer], he received in 09/2019. ABIs 10/25/19: RIGHT: [...] Wound Neuropathic ulcer. Home Health Agency: No Review Of Systems: Denies constitutional symptoms of fever, chills, sweats, fatigue Neuro: denies GARCIA, dizziness CV: Denies CP, SOB GI: denies N/V, diarrhea : Denies voiding issues Diet: eating well Wound care: helps with dressings. Leg fatigue, calf cramping, skin itching: denies. Neuropathy: + to bilateral feet Pain: denies pain currently but does have intermittent pain to legs and feet. Objective: BP 159/76 Pulse 54 Temp 36.7 ??C (98 ??F) (Oral) Resp 20 SpO2 92% General: pleasant, 64 year old male in NAD. Arrives with . Mobility: wheelchair for long distance. Edema:1 + to bilateral feet. DP, PT pulses palpable bilaterally. Varicosities: + to bilateral feet. Hemosiderin staining: none Stasis dermatitis: + to bilateral dorsal feet Callus: significant to bilateral plantars. Bilateral feet warm to touch. Wound location Measurement 02/02/20 Measurement 01/26/20 Measurement 01/21/2020 Wound Bed Periwound skin Exudate/Odor Left Plantar ?? 1.3 x 1.0 x 0.2 cm 0.6 x 0.6 x 0.2 cm 0.7 cm x 0.7 cm x 0.2 cm 100% smooth pink non-granulating 100% pink Moderate serous/none Right Plantar??(5th MTH) <0.1 x <0.1 x <0.1 cm 0.2 x 0.2 x 0.1 cm 0.3 cm x 0.5 cm x 0.1 cm 100% red, moist tissue [place], dry and intact Minimal serous Right hallux (dorsal) No open area. 0.2 x 0.1 x 0.1 cm 0.3 cm x 0.2 cm x <0.1 cm 100% epithilial Treg[place], dry, peeling Moderate serous/none Right calf: 37.0 cm Right Ankle: 25.0 cm Left calf: 37.o cm Left Ankle: 27.0 cm ?? PHOTO Left Plantar Right plantar Right hallux Treatment: Wound Location: bilateral plantars Cleansed wound with normal saline and gauze. Lidocaine: None. Conservative Sharp Debridement: removed devitalized tissue using a #15 blade and forceps, less than 20 cm sq down to and including subcutaneous tissue to reveal healthier tissue. Dressings/wraps applied: Skin prep was applied to the periwound skin. Left Plantar: Apply HFBR to wound bed, secured with medipore tape. Right Plantar: Applied non border foam and secured with medipore tape. Right hallux: Applied non border foam and secured with medipore tape. Bilateral Met pads to shoes. The patient's own compression stockings were applied to the bilateral lower extremities. Pain Reassessment post treatment (0-10): 0 Assessment: Mahin Ramos is a 64 y.o. 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 There are no signs or symptoms of infection noted on examination today. DONTAE's 10/25/19 with noLEAD. 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 There is no evidence of osteomyelitis of the residual fifth metatarsal. The right plantar ulcer is almost healed,the left is slightly larger, but debrided additional callous today, continues to have bilateral lower extremity edema, using compression and has increased elevation. Will switch to HFBR to left plantarfor antimicrobial and exudate management and non border foam to right plantar and right hallux for protection and exudate moist healing. He continues to wear the forefoot offloading shoe on the left foot and a hexagon offloading shoe on the right foot with added met pads to these and slippers he wearsat home on occation. Continues to have dermatitis to bilateral dorsal feet, which are dry, recommendincreased moisturizer to these daily and this has improved since last week. I instructed the patientto continue to elevate his lower extremities frequently to help manage the edema. He will [facility] one week or sooner if he has any concerns. Dr Gómez in today for wound assessment and nail care. He has previously ordered custom shoes that he will resume wearing once wounds heal. We reviewed signs and symptoms of infection and when to seek medical treatment. The patient verbalized understanding and agreement with the plan of care and will contact us with any questions or concerns. Wound(s) currently improving Barriers to healing: Neuropathy, offloading, infection, smoking Plan: -Continue with local wound care. Follow up: Return to [facility]aling Center in approximately 1 week. Post Visit Instructions (Home Health Agency and/or patient): Left Plantar Change dressing every 2 days or sooner for 50% or greater strike through drainage. 1. Remove old dressing. 2. Cleanse wound with wound cleanser or normal saline and gauze. 3. Apply skin prep to periwound skin. 4. Cut a piece of Hydrofera Blue Ready to fit wound bed. Apply the dressing over the wound bed with the foam side towards the wound and the shiny film side facing up. 5. Secure the dressing in place using Medipore tape. 6. Secure edges of dressing with skin prep. Right Big toe and right bottom of foot: Change dressing every 2 [...] Beef, chicken, fish Beans, Lentils, peanut butter Maldivian and regular yogurt Cheese, eggs Boost, Ensure shakes Protein powder in a smoothie of your choice Foot Care ?? If you have high blood pressure and/or high cholesterol, work with your health care provider to lower it. ?? Never walk barefoot, neither indoors or outdoors. ?? Examine your feet daily for redness, warmth, blisters, ulcers, scratches, cuts and nail problems from shoes or other sources. Look at the bottoms and between toes. Use a mirror or have someone else look for you. ?? Call your doctor immediately if you experience any injury to your feet. Even a minor injury is anemergency for a patient at high risk. ?? Examine your shoes for foreign objects, protruding nails and rough spots inside before putting them one. Look and feel. ?? Buy shoes late in the day. Never buy shoes that need ???breaking in?? . They should be immediately comfortable. Request shoes with deep toe boxes and made of soft leather upper material. ?? Lubricate your entire foot after bathing or if your skin is dry, but avoid putting cream between toes. Avoid Vaseline, petroleum jelly, mineral oil and baby oil. Waller???s wool may be used between toes. Diabetaderm is one good foot cream option. ?? Do not soak your feet. Skin can break down and won???t heal well. ?? Avoid direct heat (heating pads, hot water [...] your feet. The can tear your skin. ?? Do not file, remove or shave calluses or corns yourself, unless instructed otherwise. These should be taken care of by your physician or manager outreach. ?? Avoid using any chemical or strong antiseptic solutions on your feet. Iodine, salicylic acid, corn/callus removers may burn the skin. documented in this encounter Plan of Treatment Upcoming Encounters Date Type Specialty Care Team Description 12/11/2021 Appointment Radiology 12/11/2021 Office Visit Orthopaedics Marion Tavera APRN [facility] DR ORTHOPAEDIC SURG [place], [place] [address] (Wo rk) 01/15/2022 Appointment Radiology Stiven Cervantes MD [facility] Pulmonary Medici [place], [place] [address] (Wo rk) Scheduled Procedures Name [...] foot, left, with fa t layer exposed Toe ulcer, right, limited to breakdown o f skin documented in this encounter Care Teams Contractor [employer]room[employer] Threshing Relationship Specialty Start Date End Date Brian Fall APRN PCP - General Internal Medicine 04/07/[address] [place] [phone] documented as of this encounter
--- OUTSIDE RECORDS SUMMARY | 2021-11-30 08:21 | XMS_ITS | Encounter Summary ---
:1955 Author Organization [facility] Address [address] [place] [address] Care Team Providers Name Role Phone Brian Fall APRN Primary Care Provider Encounter Details Date Type Department Care Team Description 02/02/2020 Office Visit Podiatry at [facility] Maia Gómez, Foot ulcer, left, with fat l ngozi exposed; [facility] DP Foot ulcer, right, with fat layer expose d; Drive [facility] Alcohol-induced polyneuropat ; [place], [place] [address]; [phone] [place] [address] Onychauxis; [phone] Onychomycosis (Work) Social History Tobacco Use Types Packs/Day Years Used Date Current Every Day Smoker Cigars, Cigarettes 1 42 Smokeless Tobacco: Never Used Alcohol Use Standard Drinks/Week Comments Yes 24 (1 standard drink = 0.6 oz pure alcoh ol) Sex Assigned at Date Recorded Not on file documented as of this encounter Progress Notes Maia Gómez DPM - 02/02/2020 4:45 PM EDT Images from the original note were not included. [facility] Note Name: Mahin Ramos Age:64 y.o. MR#: [id number] Date of Service: 02/02/2020 SUBJECTIVE: Mahin Ramos is a pleasant 64 y.o. male with history of bilateral foot ulcers, hepatitis C, cirrhosis, peripheral neuropathy secondary to alcohol dependence, gout, prior amputation secondary to osteomyelitis, hypertension, hyperlipidemia, COPD and tobacco use who returns to the clinic today for evaluation of bilateral foot ulcers. Patient relates improvement of right foot ulceration, however her left foot ulceration continues to persist. Relates receiving custom shoes. Denies any swelling, redness, pus, or other interval changes. Relates elongated thickened fungal nails causing mild discomfort. No constitutional symptoms today. No other pedal complaints. [...] file Gets together: Not on file Attends adventist service: Not on file Active member of [...] Social History [place] 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 Pt has been exposed to [...] to Visit Medication Sig Dispense Refill ??? pantoprazole EC (Protonix) 40 mg Tablet, Delayed Release (E.C.) Take 40 mg by mouth 2 times daily. ??? furosemide (Lasix) 80 mg Tablet Take by mouth as needed. ??? buspirone HCl (BUSPIRONE ORAL) Take by mouth daily. ??? ondansetron ODT (Zofran-ODT) 4 mg Tablet, Rapid Dissolve Take 1 tablet by mouth every 8 hours. 90 tablet 1 ??? citalopram (CELEXA) 20 mg Tablet Take 20 mg by mouth Daily. ??? chlorthalidone (HYGROTEN) 25 mg Tablet Take 25 mg by mouth daily. 0 ??? omeprazole (PRILOSEC) 40 mg Capsule, Delayed Release(E.C.) Take 40 mg by mouth daily. 1 ??? methadone HCl (METHADONE ORAL) Take 107 mg by mouth daily. ??? SPIRIVA RESPIMAT [...] ROS: MSK: +history of partial foot amputation Skin: +ulcers The remainder of 10 ROS were reviewed and negative. OBJECTIVE: GEN: NAD, AAO x3, wearing postop shoes DERM: Skin thin and dry atrophic and diffusely xerotic with right plantar ulceration nearly closed with increased epithelialization, <0.1 x <0.1 x <0.1 cm. Left plantar ulceration measures 1.3x 1 x 0.2 cm with granular base and no signs of acute infection. No exposed bone or tendon. No malodor. No purulence expressed. No erythema or proximal streaking. Nails x7 thickened, elongated, dystrophic with mycotic changes and no signs of acute infection. VASC: No significant edema. No rest pain. No calf pain. Pedal pulses palpable but diminished bilaterally. Capillary refill 3 seconds to all digits. NEURO: Epicritic sensation diminished bilaterally. Sharp/dull/protective sensation diminished bilateral forefoot. MSK: No significant pain on palpation secondary to advanced neuropathy. Status post partial amputation left foot well-healed. ?? DIAGNOSTICS: EXAMINATION: MRI FOOT WO CONTRAST LEFT 12/15/2019 ?? CLINICAL HISTORY: nonhealing left foot ulcer sub 5th metatarsal head, rule out osteomyelitis any pathology/OM ? TECHNIQUE: Noncontrast MRI of the left foot [...] of osteomyelitis of the residual fifth metatarsal. ICD10 Diagnosis Code: L97.422, L97.512 10/25/2019 DONTAE [...] imaging modality. MRI of left foot 08/2019 ASSESSMENT: Bilateral neuropathic foot ulcers--uninfected, negative for osteomyelitis Peripheral neuropathy secondary to alcohol dependence Tobacco use Onychomycosis/onychauxis causing discomfort History of partial digital amputations/osteomyelitis left foot PLAN: Patient seen and evaluated. Ulceration debridement and dressing as per wound care, appointment to follow. Advised transitioning to Hydrofera Blue ready for left foot ulceration. Instructed patient to hold off and using custom shoes until ulcerations completely closed and have completed 4 weeks of monitoring. Encouraged patient to follow-up with wound care as scheduled. Debrided nails x7 without incident using sterile nail nippers. If any worsening consider topical. Patient he remains at high risk ofcomplications due to open wounds, diminished sensation and tobacco use and to return to clinic if any worsening. Answered all questions. Patient verbalized understanding of all instructions FOLLOW UP: 1 week wound care, 9 weeks podiatry for evaluation or sooner if any concerns arise Please [...] If weekends/holidays/evenings,please report to the Emergency Department. Maia Gómez DPM [facility], [facility] documented in this encounter Plan of Treatment Upcoming Encounters Date Type Specialty Care Team Description 12/11/2021 Appointment Radiology 12/11/2021 Office Visit Orthopaedics Marion Tavera APRN [facility] ORTHOPAEDIC SURG [place], [place] [address] (Wo rk) 01/15/2022 Appointment Radiology Stiven Cervantes MD [facility] Pulmonary Medici [place], [place] [address] (Wo rk) Scheduled Procedures Name [...] as of this encounter Visit Diagnoses Diagnosis Foot ulcer, left, with fat layer exposed Foot ulcer, right, with fat layer expose d Alcohol-induced polyneuropathy Alcoholic polyneuropathy Toe amputee Onychauxis Other specified disease of nail Onychomycosis Dermatophytosis of nail documented in this encounter Care Teams Product Designer Relationship Specialty Start Date End Date Brian Fall APRN PCP - General Internal Medicine 04/07/[address] [place] [phone] documented as of this encounter
--- OUTSIDE RECORDS SUMMARY | 2021-11-30 08:21 | XMS_ITS | Encounter Summary ---
:1955 Author [place] [address] Care Team Providers Name Role Phone Brian Fall APRN Primary Care Provider Encounter Details Date Type Department Care Team Description 02/16/2020 Telephone Wound Care at Mirta Valverde APRN [facility] [place] [address] [place] [id number] [phone] (Wo rk) Social History Tobacco Use Types Packs/Day Years Used Date Current Every Day Smoker Cigars, Cigarettes 1 42 Smokeless Tobacco: Never Used Alcohol Use Standard Drinks/Week Comments Yes 24 (1 standard drink = 0.6 oz pure alcoh ol) Sex Assigned at Date Recorded Not on file documented as of this encounter Miscellaneous Notes Telephone Encounter - Niki Stockton APRN - 02/16/2020 5:10 PM EDT CC: Patients called to report 2nd/3rd toe are a purple color and swollen per his , unsure if it was due to trauma. He reports he is able to move them at base line, warm to touch, no open areas. He is also having GI symptoms. No fevers or chills. Plan: Discuss GI symptoms with primary care. Will obtain xray of right foot and toes prior to next visit to evaluate for fracture in the event hemay have dropped something on them. Patient aware to call with worsening pain, swelling, ulceration, fevers, chills, if toes are cold. Follow up as scheduled unless worsening symptoms. documented in this encounter Plan of Treatment Upcoming Encounters Date Type Specialty Care Team Description 12/11/2021 Appointment Radiology 12/11/2021 Office Visit Orthopaedics Marion Tavera APRN [facility] ER DR ORTHOPAEDIC SURG [place], [place] [address] (Wo rk) 01/15/2022 Appointment Radiology Stiven Cervantes MD [facility] er Pulmonary Medici nelly [place], [place] [address] (Wo rk) Scheduled Procedures Name [...] Esquivel, Understanding Action Plan 9:07 AM EDT) [facility] Note: Formatting of this note might be d ifferent from the original. Patient Goal: To experience less side ef fects than his past regimen of Peg and Ribavirin Timeframe to meet goal: 3 months of ther apy documented as of this encounter Visit Diagnoses Not on filedocumented in this encounter Care Teams Student Advisor Relationship Specialty Start Date End Date Brian Fall APRN PCP - General Internal Medicine 04/07/[address] [place] [phone] documented as of this encounter
--- OUTSIDE RECORDS SUMMARY | 2021-11-30 08:21 | XMS_ITS | Encounter Summary ---
:1955 Author Organization [facility] [place] [address] Care Team Providers Name Role Phone Brian Fall APRN Primary Care Provider Reason for Visit Diagnostic Test (Routine) - Closed Specialty Diagnoses / Procedures Referred By Contact Refer red To Contact Radiology Diagnoses Chronic vomiting Abnormal laboratory test Jenaro Dunne MD [facility] Rad Mri Procedures MRI Enterography wwo Contrast [facility] [place] [address] [place] [address] Referral ID Status Reason Start Date Expiration Date Visits V isits Requested Authorized [id number] Closed Specialty 11/05/2019 05/02/2020 1 1 Service Requested Encounter Details Date Type Department Care Team Description 11/11/2019 Hospital Encounter MRI at [facility] Jenaro Dunne MD [facility] [place] [address] GASTROENTEROLOGY [phone] DEPT. [place], [place] [address] (Wo rk) Social History Tobacco [...] times daily. documented as of this encounter Progress Notes Cortney Linares RN - 11/11/2019 4:25 PM EDT MRI PRE-SEDATION ASSESSMENT NOTE NAME: Mahin Ramos AGE: 64 y.o. : 1955 [address] Formerly named [facility] [id number] Male [phone] (home) No relevant phone numbers on file. Brian Fall APRN No primary care provider on file. Allergies Allergen Reactions ??? Morphine Other (See Comments) STATES THAT IT DOES NOT TAKE HIS PAIN AWAY Date/Time of call: November 08, 2019/9:53 AM/ PREVIOUS MRI SCAN? HEIGHT: WEIGHT: SCHEDULED SCAN: MRI ENTEROGRAPHY WITH/WO CONTRAST [[id number]] SUBJECTIVE: Claustrophobic CAN YOU LAY FLAT? Yes AIRWAY/BREATHING ISSUES? No DO YOU HAVE ANY INVOLUNTARY MOVEMENTS? None DO YOU HAVE ANY PAIN? Back DO YOU TAKE PAIN MED ON A DAILY BASIS? Yes ASSESSMENT: Appropriate for PO sedation PLAN: Valium 5-10 mg PO ( [facility]) You must have a tank wagon driver present when you check in. This patient has been informed that they require a tank wagon driver to drive them home after this procedure. In the absence of a tank wagon driver, IR will not be able to sedate for your scan. Pt verbalized understanding of these instructions during the pre-procedure education via phone. Yes Name of tank wagon driver: Skylar Phone number: home number PRIOR SCAN DATE/S SEDATION TYPE SUCCESSFUL Past MRI, pt unsure of date Valium, does not remember dose Yes 11/11/19 MRI Enterography Valium 5 mg PO Yes Revised 10/07/17 documented in this encounter Plan of Treatment Upcoming Encounters Date Type Specialty Care Team Description 12/11/2021 Appointment Radiology 12/11/2021 Office Visit Orthopaedics Marion Tavera APRN [facility] ER DR ORTHOPAEDIC SURG [place], [place] [address] (Wo rk) 01/15/2022 Appointment Radiology Stiven Cervantes MD [facility] Pulmonary Medici nelly [place], [place] [address] (Wo rk) Scheduled Procedures Name [...] Action Plan 9:07 AM EDT) [facility] Note: Formatting of this note [...] e number below. ? Electronically signed by: Harley toribio, [facility] ([phone]), at 11/15/2019 9:46 AM Narrative 11/15/2019 9:46 [...] contact e number below. Electronically signed by: Harley Dyer os, [facility] ([phone]), at 11/15/2019 9:46 AM Authorizing Provider Result Alfred Dunne MD IMG MRI ORDERABLES documented in this encounter Visit Diagnoses Not on filedocumented in this encounter Administered Medications Inactive Administered Medications - up to 3 most recent administrations Medication Order MAR Action Action Date Dose Rate Site diazePAM (Valium) tablet 5 mg Given 11/11/2019 4:30 PM EDT 5 mg 5 mg, Oral, EVERY 30 MIN PRN, 1 dose, Starting on Christina 11/11/19 at 0832, Until Christina 11/11/19 at 1630, Anxiety, MRI, Angio/IR (Day of Procedure), Routine glucagon (human recombinant) injection SolR Given 11/11/2019 5:30 PM EDT 0.5 mg 0.5 mg 0.5 mg, Intramuscular, ONCE, 1 dose, On Christina 11/11/19 at 0900, Radiology Protocol Medication, Routine documented in this encounter Care Teams Building Code Administrator Relationship Specialty Start Date End Date Brian Fall APRN PCP - General Internal Medicine 04/07/19 [address] [place] [address] documented as of this encounter
--- OUTSIDE RECORDS SUMMARY | 2021-11-30 08:21 | XMS_ITS | Encounter Summary ---
:1955 [place] [address] Care Team Providers Name Role Phone Brian Fall APRN Primary Care Provider Encounter Details Date Type Department Care Team Description 11/19/2019 Office Visit Wound Care at [facility], Neuro pathic ulcer of foot, left, with fat layer exposed; [facility] RN Neuropath ic ulcer of foot, right, [place] [address] Social History Tobacco Use Types Packs/Day Years Used Date Current Every Day Smoker Cigars, Cigarettes 1 42 Smokeless Tobacco: Never Used Alcohol Use Standard Drinks/Week Comments Yes 24 (1 standard drink = 0.6 oz pure alcoh ol) Sex Assigned at Date Recorded Not on file documented as of this encounter Last Filed Vital Signs Vital Sign Reading Time Taken Comments Blood Pressure 141/86 11/19/2019 11:05 AM EDT Pulse 71 11/19/2019 11:05 AM EDT Temperature 36.7 ??C (98 ??F) 11/19/2019 11:05 AM EDT Respiratory Rate 20 11/19/2019 11:05 AM EDT Oxygen Saturation 95% 11/19/2019 11:05 AM EDT Inhaled Oxygen Concentration - - Weight - - Height - - Body Mass Index - - documented in this encounter Progress Notes Radha Salazar RN - 11/19/2019 11:15 AM EDT Images from the original note [...] ?? He has custom made shoes from [employer], he received in 09/2019. ABIs 10/25/19: RIGHT: [...] prior to procedure? no Objective: Vitals: BP 141/86 Pulse 71 Temp 36.7 ??C (98 ??F) (Oral) Resp 20 SpO2 95% Dressings were removed. There was small amount to moderate amount of serosanguinous drainage. Malodor no Erythema no Pulses: Dorsalis Pedis: Right:palpable Left: palpable Posterior Tibia: Right: palpable Left: palpable Measurements (cm) Right Left Calf girth 37.0 cm 39.0 cm Ankle girth 25.0 cm 26.0 cm Wound location Measurement 11/19/2019 Measurement 11/11/2019 Wound Bed Periwound skin Left Plantar ?? 1.2 cm x 1.4 cm x 0.2 cm UM: 0.1 cm at 3:00 1.0 cm x 1.0 cm x 0.4 cm 100% mixed dark pink and pale pink tissue. Non-granulating Eros, dry and intact with some callous circumferentially Right Plantar (5th MTH) 0.4 cm x 0.2 cm x <0.1 cm 0.3 cm x 0.1 cm x 0.2 cm 100% pink, moist non-granultaing tissue Eros, dry and intact PHOTO Left Plantar Right [...] osteomyelitis. There are no local signs of localinfection on examination today. Both wounds have decreased in depth today. We will continue using Iodosorb on each wound bed for its absorptive properties and to help control bacterial loads. The patient's is assisting him with his own dressing changes at home. He has a forefoot offloading shoe on the left lower foot, but reports that he has not been wearing this consistently while at home. He has been frequently putting pressure on the bottom of his foot, stating that it actually makes the wound feel better that way. We discussed the importance of using the shoe consistently to help alleviate the pressure on the wound, as well as offloading the foot completely. He verbalized understanding and states that he will try to wear the shoe more often and offload. He also reports that he tolerated the Medigrips, but has not been wearing them consistently. We discussed the importance of wearing compression consistently to faciliate wound healing. The patient will continue to follow up here at the [facility] weekly or sooner if there are any concerns. He verbalized understanding and agreement with theplan of care and will contact us with any questions or concerns. Wound(s) currently stalled Barriers to healing: Comorbidities Plan: -Continue with local wound care. -Follow up with cloth bleaching range tender on 11/23/2019. Follow up: Return to Wound [facility]aling Center in approximately 1 week. Post Visit Instructions (Home Health Agency and/or patient): Iodosorb Change dressing every 2-3 days or sooner [...] Beef, chicken, fish Beans, Lentils, peanut butter Vietnamese and regular yogurt Cheese, eggs ?? Boost, Ensure shakes Protein powder in a smoothie of your choice ?? Should here from our medical office scheduler for follow up appointment and scheduling [...] taken care of by your physician or cloth bleaching range tender. 6. Avoid using any chemical or strong antiseptic solutions on your feet. Iodine, salicylic acid, corn/callus removers may burn the skin. documented in this encounter Plan of Treatment Upcoming Encounters Date Type Specialty Care Team Description 12/11/2021 Appointment Radiology 12/11/2021 Office Visit Orthopaedics Marion Tavera , EMERGENCY SERVICES DISPATCHER [facility] ORTHOPAEDIC SURG [place], [place] [address] (Wo rk) 01/15/2022 Appointment Radiology Stiven Cervantes MD [facility] er Pulmonary [place], [place] [address] (Wo rk) Scheduled Procedures Name [...] exposed documented in this encounter Care Teams Classified Ad Clerk Relationship Specialty Start Date End Date Brian Fall APRN PCP - General Internal Medicine 04/07/[address] [place] [phone] documented as of this encounter
--- OUTSIDE RECORDS SUMMARY | 2021-11-30 08:21 | XMS_ITS | Encounter Summary ---
:1955 [place] [address] Care Team Providers Name Role Phone Brian Fall APRN Primary Care Provider Reason for Visit Reason Comments Wound Care Encounter Details Date Type Department Care Team Description 12/30/2019 Office Visit Wound Care at [facility] Ne uropathic ulcer of foot, right, with fat layer exposed; [facility] Cellulitis of leg, right; [facility] Neuropathic ulcer of foot, l eft, with fat layer exposed [place] [phone] Social History Tobacco Use Types Packs/Day Years Used Date Current Every Day Smoker Cigars, Cigarettes 1 42 Smokeless Tobacco: Never Used Alcohol Use Standard Drinks/Week Comments Yes 24 (1 standard drink = 0.6 oz pure alcoh ol) Sex Assigned at Date Recorded Not on file documented as of this encounter Last Filed Vital Signs Vital Sign Reading Time Taken Comments Blood Pressure 176/90 12/30/2019 8:25 AM EDT Pulse 68 12/30/2019 8:25 AM EDT Temperature 36.9 ??C (98.4 ??F) 12/30/2019 8:25 AM EDT Respiratory Rate - - Oxygen Saturation 95% 12/30/2019 8:25 AM EDT Inhaled Oxygen Concentration - - Weight - - Height - - Body Mass Index - - documented in this encounter Patient Instructions Patient InstructionsNiki Stockton APRN - 12/30/2019 8:15 AM EDT Left Plantar/Right plantar/right Halloux Foot: Iodosorb Change dressing every 2-3 days or sooner for 50% or greater strike through drainage. 1. Remove old dressing. 2. Cleanse wound with wound cleanser or normal saline and gauze. 3. Apply skin prep to periwound skin. 4. Apply Iodosorb nickel thickness 5. Cover wound bed with Mepilex non-bordered foam and secure with Medipore tape OR similar. 6. Secure edges with skin prep. Apply home compression stockings daily and remove at night. (20-30 mm hg recommended). Please report to the Emergency Department if you develop signs/symptoms of infection, this may include the following: Fever Sweats Chills Nausea, Vomiting or Diarrhea: general malaise Spiking Blood Glucose levels, unprovoked Around the wound site: Redness Warmth Purulent drainage Malodor ?? Try to eat 5-6 servings of following foods: ?? High Protein foods: Beef, chicken, fish Beans, Lentils, peanut butter Maori and regular yogurt Cheese, eggs ?? Boost, Ensure shakes Protein powder in a smoothie of your choice ?? Should here from our dental scheduler for follow up appointment and scheduling [...] one in any store that sells products.) 10. Don???t use any tape or sticky products such as corn plasters on your feet. The can tear your skin. 5. Do not file, remove or shave calluses or corns yourself, unless instructed otherwise. These should be taken care of by your physician or knit tubing dyer. 6. Avoid using any chemical or strong antiseptic solutions on your feet. Iodine, salicylic acid, corn/callus removers may burn the skin. documented in this encounter Progress Notes Niki Stockton APRN - 12/30/2019 8:15 AM EDT Images from the original note were not included. [facility] Progress Note CC: Mahin [...] (managed by ), cirrhosis, HTN, and hyperlipidemia. He has custom made shoes from [employer], he received in 09/2019. 12/24/2019: Right lower leg cellulitis, started on Keflex. ABIs 10/25/19: RIGHT: No LEAD. LEFT: No [...] N/V, diarrhea : Denies voiding issues Diet: Eating well Wound care: Skylar changes dressings at home. Leg fatigue, calf cramping, skin itching: denies. Neuropathy: + to bilateral feet Pain: denies Objective: BP 176/90 (BP Location (NBP): Right arm, Patient Position: Sitting, BP Cuff Sizes: Large Adult (32-43 cm)) Pulse 68 Temp 36.9 ??C (98.4 ??F) (Tympanic) SpO2 95% General: pleasant, 64 year old male in NAD. Mobility: Ambulates with offloading shoe to left foot and sneaker to right. Edema: 1 + to bilateral lower legs. DP, PT pulses palpable to bilateral lower legs. Varicosities: none Hemosiderin staining: none Stasis dermatitis: none Callus: + to bilateral plantar. Bilateral feet warm to touch. Measurements (cm) Right Left Calf girth 34.0 cm 36.0 cm Ankle girth 26.0 cm 25.5 cm Wound location Measurement 12/30/19 Measurement 12/23/2019 Measurement 12/15/19 Wound Bed Periwound skin Exudate/odor Right anterior lower leg-new wound No open areas Superficial open area. 1.2cm L x 2.5cm W x 0.1cm D 100% red, moist tissue ??hemo staining, no increased warmth or erythema none Left Plantar ?? 0.8 x 0.9 x 0.2 cm 0.8 cm x 0.8 cm x 0.1 cm 0.7cm L x 0.9cm W x 0.2 cm D 100% smooth pink non-granulating 100% pale pink Moderate serous/none Right Plantar??(5th MTH) 0.6 x 0.6 x 0.1 cm Superficial area 0.1 x 0.3 x <0.1 cm 100% red, moist tissue 100% yellow tissue Moderate serous/none Right hallux (dorsal) 0.5 x 0.2 x <0.1 cm No open areas 0.7 x 0.5 x 0.1 cm No open areas 50% yellow 50% pale pink Moderate serous/none ?? PHOTO Left Plantar Right Plantar Treatment: Wound Location: Bilateral Plantar and right lower leg Cleansed wound with normal saline and gauze. Lidocaine: None. Conservative Sharp Debridement: removed devitalized tissue using a #15 blade, curet and forceps, less than 20 cm sq down to and including subcutaneous tissue to reveal healthier tissue. Right anterior lower leg: no dressing. Applied mineral oil to dry epithelial tissue and washed with warm water. Bilateral Plantar Ulcers: Applied skin prep to dmitriy-wound, Iodosorb to wound bed, and covered with Mepilex border dressings. Applied a double layer Medigrip, size F latex-free, to the bilateral lower extremities for medium tissue support. Pain Reassessment post treatment (0-10): 0 Assessment: Mahin Ramos is a 64 y.o. 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 He has history of left 5th toe amp due to osteo two years ago. He has no LEAD. Recent MRI of left foot with There is no evidence of osteomyelitis. He has now healed right lower leg ulcer. Bilateral plantar ulcer slightly smaller but with increased slough build up today. There are no local signsof local wound infection on examination today. Will switch back to Iodosorb for antimicrobial and debridement properties, followed by Mepilex borders for moist wound healing. He continues to wearing a custom shoe on the right foot and a forefoot offloading shoe on the left foot. We applied a double layer Medigrip, size F latex-free, to the bilateral lower extremities for medium tissue support but his and him will purchase compression stockings this week with 20-30 of compression. He will follow up here at the [facility] in one week or sooner if he has any concerns. Dr. Gómez in today and no biopsy required will follow with her for routine nail care or as needed for wound care. Patient verbalized understanding and agreement with the plan of care and will contact us withany questions or concerns. Reviwed importance of smoking cessation, nutrition especially protein, and offloading. Wound(s) currently stalled Barriers to healing: smoking, neuropathy. Follow up: Return to Wound Healing Center in approximately 1 week. Left Plantar/Right plantar/right Halloux Foot: Iodosorb Change dressing every 2-3 days or sooner for 50% or greater strike through drainage. 1. Remove old dressing. 2. Cleanse wound with wound cleanser or normal saline and gauze. 3. Apply skin prep to periwound skin. 4. Apply Iodosorb nickel thickness 5. Cover wound bed with Mepilex non-bordered foam and secure with Medipore tape OR similar. 6. Secure edges with skin prep. Apply home compression stockings daily and remove at night. (20-30 mm hg recommended). Please report to the Emergency Department if you develop signs/symptoms of infection, this may include the following: Fever Sweats Chills Nausea, Vomiting or Diarrhea: general malaise Spiking Blood Glucose levels, unprovoked Around the wound site: Redness Warmth Purulent drainage Malodor ?? Try to eat 5-6 servings of following foods: ?? High Protein foods: Beef, chicken, fish Beans, Lentils, peanut butter Maori and regular yogurt Cheese, eggs ?? Boost, Ensure shakes Protein powder in a smoothie of your choice ?? Should here from our dental scheduler for follow up appointment and scheduling [...] one in any store that sells products.) 10. Don???t use any tape or sticky products such as corn plasters on your feet. The can tear your skin. 5. Do not file, remove or shave calluses or corns yourself, unless instructed otherwise. These should be taken care of by your physician or knit tubing dyer. 6. Avoid using any chemical or strong antiseptic solutions on your feet. Iodine, salicylic acid, corn/callus removers may burn the skin. documented in this encounter Plan of Treatment Upcoming Encounters Date Type Specialty Care Team Description 12/11/2021 Appointment Radiology 12/11/2021 Office Visit Orthopaedics Marion Tavera APRN [facility] ORTHOPAEDIC SURG [place], [place] [address] (Wo rk) 01/15/2022 Appointment Radiology Stiven Cervantes MD [facility] Pulmonary Medici [place], [place] [address] (Wo rk) Scheduled Procedures Name [...] foot, right, with f at layer exposed Cellulitis of leg, right Cellulitis and abscess of leg, except fo ot Neuropathic ulcer of foot, left, with fa t layer exposed documented in this encounter Care Teams Cage Supervisor Relationship Specialty Start Date End Date Brian Fall APRN PCP - General Internal Medicine 04/07/[address] [place] [phone] documented as of this encounter
--- OUTSIDE RECORDS SUMMARY | 2021-11-30 08:21 | XMS_ITS | Encounter Summary ---
:1955 Author Organization [facility] [place] [address] Care Team Providers Name Role Phone Brian Fall APRN Primary Care Provider Encounter Details Date Type Department Care Team Description 12/24/2019 Office Visit [place]rology [place] [facility] Jazmin Thompson, Memory impairment; [facility] [employer] HOME SERV[employer] Alcohol abuse; [facility] Marijuana use; [place] [address] [address]; [phone] [place], [place] [address] Cigarette smoker [phone] (Wo rk) Social History Tobacco Use Types [...] Sign Reading Time Taken Comments Blood Pressure 154/90 12/24/2019 8:45 AM EDT Pulse 49 12/24/2019 8:45 AM EDT Temperature - - Respiratory Rate - - Oxygen Saturation - - Inhaled Oxygen Concentration - - Weight 90.7 kg (200 lb) 12/24/2019 8:45 AM EDT Height 176.5 cm (5' 9.5) 12/24/2019 8:45 AM EDT Body Mass Index 29.11 12/24/2019 8:45 AM EDT documented in this encounter Patient Instructions Patient InstructionsJazmin Thopmson APRN - 12/24/2019 8:30 AM EDT -I think there are many reasons your memory is poor: 1.) Your alcohol use 2.) Your cigarette usage 3.) Your marijuana usage 4.) Your usage of certain medications (gabapentin, methadone) 5.) Your chronic pain 6.) Your anxiety 7.) Your history of attention problems -My recommendations are that you try to address the above issues, like cutting down your alcohol intake, marijuana intake, etc. -Please try to work with your PCP about your anxiety, pain, etc. -Your PCP may wish to send you to psychiatry to address the anxiety, attention problems, things likethat. -Your vision seems poor. Please make an appointment with your eye doctor. -Please try to exercise as you can. -Please try to eat lots of vegetables and beans, less red meat like pork and beef. -I am going to have you follow up with your PCP for memory care going forward. You are always welcome to come back to [facility] in the future if you or Brian feels like things are changing. documented in this encounter Progress Notes Jazmin Thompson APRN - 12/24/2019 8:30 AM EDT [facility] OUTPATIENT FOLLOW UP VISIT NOTE Patient Active Problem List Diagnosis ??? Cellulitis of leg, right ??? Neuropathic [...] ??? Major depressive disorder, single episode, unspecified 1955 PCP - Brian Fall, [employer]BI[employer] CORPORATE INTERN - Brian Fall Past Medical History: Diagnosis Date ??? Cirrhosis Chronic HCV and history of alcohol use ??? COPD (chronic obstructive pulmonary disease) ??? Depression ??? GERD (gastroesophageal reflux disease) ??? Hepatitis C ??? HTN (hypertension) Current Outpatient Medications on File Prior to [...] facility-administered medications on file prior to visit. Functional Activities of Daily Living: Functional Activities Questionnaire (FAQ) Response 03/02/2019 Completing Questionnaire Patient Writing checks, paying bills, balancing checkbook Requires assistance Assembling tax records, business affairs, or papers Requires assistance Shopping alone for clothes, household necessities, or groceries Requires assistance Playing a game of skill, working on a hobby Has difficulty but does by self Heating water, making a cup of coffee, turning off stove after use Dependent Preparing a balanced meal Requires assistance Keeping track of current events Requires assistance Paying attention to, understanding, discussing TV, book, magazine Has difficulty but does by self Remembering appointments, family occasions, holidays, medications Requires assistance Traveling out of neighborhood, driving, arranging to take buses Requires assistance FAQ Score 19 (Dependent in 3 or more activities indicates imparied function and possible cognitive impairment) Mahin Ramos presents today for a follow up visit for his memory issues. He is accompanied by his Vidhya. He has previously been seen by Dr. Peres and Angelica Jimenes APRN. Mahin tells me that his memory is poor. Vidhya tells me that Mahin quickly forgets things. He must write things down or he forgets them. He asks the same thing multiple times. She doesn't feel that hismemory problems are getting worse, they're just staying the same. He did get lost while walking around in [place] last year. They were on vacation at a place that he wasn't familiar with. Vidhya manages all of his meds because he has so many of them. She also cooks and does the bills, but she always has done these. He is still drinking heavily. He drinks 1-3 large beers/Twisted Teas (22 oz/bottle) per day; however, sometimes (like yesterday) he drinks 12 beers per day. He also smokes a pack of cigarettes per day.Additionally, he smokes marijuana daily. He takes methadone for his chronic pain but is in the process of weaning that down. He also takes gabapentin 1200-3600mg per day for his neuropathy. His mood is alright. He does get anxious when someone won't go get him cigarettes or alcohol. Didinotes that she will be going back to work soon, leaving Mahin home alone more during the day. She suspects he will likely become more depressed when this happens. He is not having any problems sleeping. He does not snore and he wakes up feeling well-rested. Vidhya notes that he is not active and that he has had a long history of attention problems. He did try Ritalin in the past and did find it helpful. He was started on donepezil in the past but Vidhya states that medication has been stopped by a provider that she can't remember. Vitals: Patient Vitals for the past 24 hrs: Pulse BP 12/24/19 0845 (!) 49 154/90 On exam, Mahin is slightly disheveled but dressed appropriately for the weather. His speech is fluent and without error or dysarthria. He walks with the aid of a walking stick. He has no visible tremor. EOMI and PERRLA. Right lower visual field deficit. His strengths are 4/5 throughout. No rigidity or cogwheeling noted. MoCA score today in office: He started doing the MoCA and then about half-way through, he said that he just couldn't do anymore today because he was too confused. The portion of the MoCA that he did complete showed signs of poor attention and visuospatial deficits. Impression: Mahin Ramos is a 64 year old gentleman here for further evaluation and follow up of his memory issues. I think his memory issues are likely multifactorial in nature: 1.) His heavy daily alcohol use 2.) His heavy tobacco usage 3.) His daily marijuana usage 4.) His usage of certain medications (gabapentin, methadone) known to have the potential to impair cognition 5.) His chronic pain 6.) His anxiety/depression 7.) His history of attention problems We discussed all of the above in great detail today. Foremost in what is most largely contributing to his memory issues is his current everyday alcohol intake. He has drank alcohol all of his life and is currently drinking heavily. It is possible that Mahin is developing an alcohol-related dementia. Combined with all of the other factors listed above, it is not surprising that he has memory problems. I encouraged Mahin to work on reducing his alcohol, tobacco, and marijuana usage. I also encouragedhilb to discuss with his PCP the possibility of seeing a psychiatrist for help with anxiety, depression, and attention problems. I also encouraged Mahin to try to be physically active and eat primarily vegetables going forward. I also encouraged him to have a visit with his eye doctor, as he said it has been a year since they last met and I noted some visuospatial issues today, which may be from his admittedly poor vision. Mahin can return to his PCP for memory care going forward, with the goal of addressing the above issues. PCP should be sure to check regular thiamine, folate, and B12 levels in light of Mahin's heavyalcohol usage. Of note, patient was bradycardic today. Would not recommend acetylcholinesterase inhibitors in the future if continuously bradycardic. Follow up in [facility] Clinic PRN. Jazmin Thompson DNP, [employer] SERV[employer] Department of Neurology This visit was approximately 45 minutes in duration with >23 minutes spent in discussion, education, and supportive counseling as represented above. documented in this encounter Plan of Treatment Upcoming Encounters Date Type Specialty Care Team Description 12/11/2021 Appointment Radiology 12/11/2021 Office Visit Orthopaedics Marion Tavera APRN [facility] ORTHOPAEDIC SURG [place], [place] [address] (Wo rk) 01/15/2022 Appointment Radiology Stiven Cervantes MD [facility] Pulmonary Medici [place], [place] [address] (Wo rk) Scheduled Procedures Name [...] Action Plan 9:07 AM EDT) [facility] Note: Formatting of this note might be d ifferent from the original. Patient Goal: To experience less side ef fects than his past regimen of Peg and Ribavirin Timeframe to meet goal: 3 months of ther apy documented as of this encounter Visit Diagnoses Diagnosis Memory impairment Memory loss Alcohol abuse Alcohol abuse, unspecified Marijuana use Cannabis abuse, unspecified Anxiety Anxiety state, unspecified Cigarette smoker Tobacco use disorder documented in this encounter Care Teams Cured Meats Supervisor Relationship Specialty Start Date End Date Brian Fall APRN PCP - General Internal Medicine 04/07/[address] [place] [phone] documented as of this encounter
--- OUTSIDE RECORDS SUMMARY | 2021-11-30 08:21 | XMS_ITS | Encounter Summary ---
:1955 Author Organization [facility] Address [address] [place] [address] Care Team Providers Name Role Phone Brian Fall APRN Primary Care Provider Encounter Details Date Type Department Care Team Description 10/25/2019 Hospital Encounter XRay at [facility] Rico, Maia, Foot ulcer, left, [address] [place] with fat layer [facility] Medical exposed [id number] Center [phone] [place] [id number] Social History Tobacco Use Types Packs/Day Years [...] Tablet hours by oral route as needed. meTOPROLOL succinate Take 100 mg by mouth [...] 12/11/2021 Office Visit Orthopaedics Marion Tavera APRN [facility] ORTHOPAEDIC SURG [place], [place] [address] (Wo rk) 01/15/2022 Appointment Radiology Stiven Cervantes MD [facility] Medical [facility] er Dr Carlos Dumont [place], [place] [address] (Wo rk) Scheduled Procedures [...] nts XR FOOT MIN 3 VIEWS Routine 10/25/2019 4:53 PM Foot ulcer, lef t, Results for this LEFT EDT with fat layer procedure are in exposed the results section. documented in this encounter Results XR Foot Min 3 views Left (Generic) (10/25/2019 4:53 PM EDT) Anatomical Region Laterality Modality Foot Left Digital Radiography Specimen (Source) Anatomical Location Collection Method / Collectio n Time Received Time / Laterality Volume Impressions 10/25/2019 4:59 PM EDT Postoperative changes of the fifth ray. No gross osseous destruction to suggest advanced osteomyelitis. If there is high clinical concern for underlying osteomyelitis, MR would be more sensitiv e imaging modality. Thank you for letting us participate in the care of this patient. For questions regarding this report, please contact e number below. ? Narrative 10/25/2019 4:59 PM EDT EXAMINATION: XR FOOT MIN 3 VIEWS LEFT (GENERIC) CLINICAL HISTORY: left foot chronic ulce r, rule out osseous changes (as entered by ordering provider in the order requis ition) TECHNIQUE: 3 views LEFT foot. Weightbearing AP, obl ique, and lateral views of the left foot. COMPARISON: Left foot radiographs 07/12/2019. 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 There is diffuse osseous demineralizatio n. There is no gross osseous destruction. Rounded ossicles in the sof t tissues adjacent to the fourth metatarsal shaft are unchanged. 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 There is Achilles tendinosis and plantar calcanea l enthesophytes. There are dorsal osteophytes of the midfoot. Flexion deformity of the first toe inter phalangeal joint is unchanged. Procedure Note SinSparkle MD - 10/25/2019Formattin g of this note might be different from the original. EXAMINATION: XR FOOT MIN 3 VIEWS LEFT (G ENERIC) CLINICAL HISTORY: left foot chronic ulce r, rule out osseous changes (as entered by ordering provider in the order requis ition) TECHNIQUE: 3 views LEFT foot. Weightbearing AP, obl ique, and lateral views of the left foot. COMPARISON: Left foot radiographs 07/12/2019. 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 There is diffuse osseous demineralizatio n. There is no gross osseous destruction. Rounded ossicles in the sof t tissues adjacent to the fourth metatarsal shaft are unchanged. 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 There is Achilles tendinosis and plantar calcanea l enthesophytes. There are dorsal osteophytes of the midfoot. Flexion deformity of the first toe inter phalangeal joint is unchanged. IMPRESSION Postoperative changes of the fifth ray. No gross osseous destruction to suggest advanced osteomyelitis. If there is high clinical concern for underlying osteomyelitis, MR would be more sensitiv e imaging modality. Thank you for letting us participate in the care of this patient. For questions regarding this report, please contact e number below. Maia Rico DPM IMG DX ORDERABLES documented in this encounter Visit Diagnoses Diagnosis Foot ulcer, left, with fat layer exposed documented in this encounter Care Teams Electronic System Engineer Relationship Specialty Start Date End Date Brian Fall APRN PCP - General Internal Medicine 04/07/[address] [place] [phone] documented as of this encounter
--- OUTSIDE RECORDS SUMMARY | 2021-11-30 08:21 | XMS_ITS | Encounter Summary ---
:1955 [place] [address] Care Team Providers Name Role Phone Brian Fall APRN Primary Care Provider Encounter Details Date Type Department Care Team Description 01/06/2020 Office Visit Wound Care at [facility] To e ulcer, right, [facility] WOUND [place] [phone] Social History Tobacco Use Types Packs/Day Years Used Date Current Every Day Smoker Cigars, Cigarettes 1 42 Smokeless Tobacco: Never Used Alcohol Use Standard Drinks/Week Comments Yes 24 (1 standard drink = 0.6 oz pure alcoh ol) Sex Assigned at Date Recorded Not on file documented as of this encounter Progress Notes Niki Stockton APRN - 01/06/2020 4:45 PM EDT [facility] Progress Note Reason for visit: Neuropathic ulcer. HPI: Pt reports they have been well since his last visit, no changes in health. He continues to havegood appetite. Examination: Patient is alert, conversant, comfortable, ambulating. He has right anterior lower leg ulcer, left plantar ulcer, right plantar ulcer and new ulcer to right hallux with slightly increased redness, but minimal increased warmth and no bone exposure, but area questionable for tendon exposure. Impression: Mahin Ramos is a 64 y.o. year old male who was seen today for follow-up prior to wound care procedures and treatment. Please see the procedure note for details. We discussed right halluxulcer is most likely due to pressure from shoes. Plan: 1. Follow up in 1 week 2. Continue Iodosorb to wound beds. 3. Xray of right foot/hallux, to rule out osteo/infection. 4. Right foot to offloading shoe to avoid pressure to right dorsal hallux. 5. Consider evaluation with [facility] to adjust custom shoes to prevent pressure areas. 6. Encourage smoking cessation. Mahin Ramos was seen today along with: Radha Salazar RN ho provided technical wound care procedures after my visit. Please see their note for full details of the visit. documented in this encounter Plan of Treatment Upcoming Encounters Date Type Specialty Care Team Description 12/11/2021 Appointment Radiology 12/11/2021 Office Visit Orthopaedics Marion Tavera APRN [facility] DR ORTHOPAEDIC SURG [place], [place] [address] (Wo rk) 01/15/2022 Appointment Radiology Stiven Cervantes MD [facility] Dr Pulmonary Medici [place], [place] [address] (Wo rk) Scheduled Procedures Name [...] Esquivel Understanding Action Plan 9:07 AM EDT) [facility] Note: Formatting of this note might be d ifferent from the original. Patient Goal: To experience less side ef fects than his past regimen of Peg and Ribavirin Timeframe to meet goal: 3 months of ther apy documented as of this encounter Results XR Foot Min 3 views Right (Generic) (02/23/2020 3:03 PM EDT) Anatomical Region Laterality Modality Foot Right Digital Radiography Specimen (Source) Anatomical Location Collection Method / Collectio n Time Received Time / Laterality Volume Impressions 02/23/2020 3:30 PM EDT Findings concerning for osteomyelitis centered at the first interphalangeal joint. Recommend MRI for further evaluat ion. Thank you for letting us participate in the care of this patient. For questions regarding this report, please contact e number below. ? Electronically signed by: Gordon Monsivais MD , [facility] ([phone]), at 02/23/2020 3:30 PM Narrative 02/23/2020 3:30 PM EDT EXAMINATION: XR FOOT MIN 3 VIEWS RIGHT (GENERIC) CLINICAL HISTORY: Right hallux ulcer, qu estion infection/osteo TECHNIQUE: 3 views RIGHT foot COMPARISON: 11/25/2016 FINDINGS: No acute fracture or dislocation. There is an old deformity of the right distal fifth metatarsal. The fifth proximal int erphalangeal joint is hyperextended. There is a bony bunion. There is degener ative change at the first interphalangeal joint and the first, sec ond, and third TMT joints and the first MTP joint. At the first interphalangeal joint, there is focal lucency, adjacent soft tissue swelling, and a erosion of t he base of the first distal phalanx, best appreciated on the lateral view, ne w compared to 2017. Procedure Note Gordon Monsivais MD - 02/23/2020Formatting o f this note might be different from the original. EXAMINATION: XR FOOT MIN 3 VIEWS RIGHT ( GENERIC) CLINICAL HISTORY: Right hallux ulcer, qu estion infection/osteo TECHNIQUE: 3 views RIGHT foot COMPARISON: 11/25/2016 FINDINGS: No acute fracture or dislocation. There is an old deformity of the right distal fifth metatarsal. The fifth proximal int erphalangeal joint is hyperextended. There is a bony bunion. There is degener ative change at the first interphalangeal joint and the first, sec ond, and third TMT joints and the first MTP joint. At the first interphalangeal joint, there is focal lucency, adjacent soft tissue swelling, and a erosion of t he base of the first distal phalanx, best appreciated on the lateral view, ne w compared to 2017. IMPRESSION Findings concerning for osteomyelitis ce ntered at the first interphalangeal joint. Recommend MRI for further evaluat ion. Thank you for letting us participate in the care of this patient. For questions regarding this report, please contact e number below. Electronically signed by: Gordon Monsivais MD , [facility] ([phone]), at 02/23/2020 3:30 PM Niki Stockton APRN IMG DX ORDERABLES documented in this encounter Visit Diagnoses Diagnosis Toe ulcer, right, limited to breakdown o f skin Chronic pain of left knee Pain in joint, lower leg History of left knee surgery Personal history of surgery to other org ans Toe ulcer, right, limited to breakdown o f skin documented in this encounter Care Teams Professor Of Philosophy Relationship Specialty Start Date End Date Brian Fall APRN PCP - General Internal Medicine 04/07/[address] [place] [phone] documented as of this encounter
--- OUTSIDE RECORDS SUMMARY | 2021-11-30 08:21 | XMS_ITS | Encounter Summary ---
:1955 [place] [address] Care Team Providers Name Role Phone Brian Fall APRN Primary Care Provider Encounter Details Date Type Department Care Team Description 12/03/2019 Office Visit Wound Care at [facility] Ne uropathic ulcer of foot, right, with fat layer exposed; [facility] LISA Neuropathic ulcer of foot, left, with fa t layer exposed; [facility] Toe ulcer, right, limited to breakdown of skin [place] [id number] [phone] Social History Tobacco Use Types Packs/Day Years Used Date Current Every Day Smoker Cigars, Cigarettes 1 42 Smokeless Tobacco: Never Used Alcohol Use Standard Drinks/Week Comments Yes 24 (1 standard drink = 0.6 oz pure alcoh ol) Sex Assigned at Date Recorded Not on file documented as of this encounter Last Filed Vital Signs Vital Sign Reading Time Taken Comments Blood Pressure 156/78 12/03/2019 10:05 AM EDT Pulse 75 12/03/2019 10:05 AM EDT Temperature 36.8 ??C (98.2 ??F) 12/03/2019 10:05 AM EDT Respiratory Rate 20 12/03/2019 10:05 AM EDT Oxygen Saturation 96% 12/03/2019 10:05 AM EDT Inhaled Oxygen Concentration - - Weight - - Height - - Body Mass Index - - documented in this encounter Patient Instructions Patient InstructionsNiki Stockton APRN - 12/03/2019 10:30 AM EDT Wound care instructions: Left plantar foot - change dressing every 2-3 days Cleanse the area with saline and pat dry. Place Promogran valerie into the wound bed. If the wound bed is dry, you may moisten it with a few drops of saline. The Promogran will be absorbed by the wound. You do not need to remove it with dressing changes. Cover with a Mepilex border and change every 3 days unless wet or soiled. Right great toe and right plantar foot - Adhesive dressing for protection Monitor for signs of infection which may include: Fever Sweats Chills Nausea, Vomiting or Diarrhea Unexplained increase in Blood Glucose levels At or around the wound site: Increased pain Swelling or edema Redness Warmth Purulent drainage (thick yellow/green drainage) Malodor Contact the [facility] with any above symptoms Friday- Friday 8:00AM-4:30PM ([phone]). If weekends / holidays / evenings, please report to the Emergency Department. How to use Tubigrip (Size E for medium tissue support) 1. Cut Tubigrip to twice the length required for limb, allowing an extra 2-3cm for overlap. 2. Pull Tubigrip onto limb like a stocking. 3. Double Tubigrip back over limb. Ensure upper edge is taken 2-3cm higher up the limb than the ?rst. 4. Check to make sure that there is no bunching or creases in the tubigrip that may cause pressure injuries. Apply in the morning and take off at night. Check your skin once daily for any pressure related areas. documented in this encounter Progress Notes Niki Stockton APRN - 12/03/2019 10:30 AM EDT Images from the original note were not included. [facility] Progress Note CC: Mahin Ramos is a 64 y.o. male returns for follow up of neuropathic ulcers on the bilateral plantar feet. HPI from previous visits: He was initially??referred by Brian Fall APRN for evaluation of [...] of Linezolid 600mg on 10/13/19 and had 10 day course of cephalexin beginning of August 2019. He is a 1 pack per day smoker. He has history of neuropathy, but is not a diabetic. He had alcohol dependence, hepatitis C (managed by GI), cirrhosis, HTN, and hyperlipidemia. ?? He has custom made shoes from [employer], he received in 09/2019. ?? ABIs 10/25/19: RIGHT: No LEAD. LEFT: No LEAD. ?? X-RAY OF LEFT FOOT 10/25/2019 ?? IMPRESSION Postoperative changes of the fifth ray. No gross osseous destruction to suggest advanced osteomyelitis. ?? Type of Wound Neuropathic ulcer. ?? Home Health Agency: No Pertinent labs/tests: Lab Results Component Value Date WBC 12.7 (H) 10/25/2019 HGB 15.1 10/25/2019 HCT 45.4 10/25/2019 MCV 97.4 (H) 10/25/2019 PLATELET 432 (H) 10/25/2019 Albumin Date Value Ref Range Status 10/25/2019 4.7 3.2 - 5.2 gm/dL Final 10/25/2019 4.5 3.2 - 5.2 gm/dL Final Review Of Systems: Denies constitutional symptoms of fever, chills, sweats, fatigue Neuro: denies GARCIA, dizziness CV: Denies CP, SOB GI: denies N/V, diarrhea : Denies voiding issues Diet: Eating well. Wound care: significant other helps with dressing changes. Leg fatigue, calf cramping, skin itching: denies. Neuropathy: + to bilateral feet. Pain: denies Objective: BP 156/78 Pulse 75 Temp 36.8 ??C (98.2 ??F) (Oral) Resp 20 SpO2 96% General: pleasant, 64 year old male in NAD. Arrives with significant other. Mobility: Ambulates with cane. Edema: 1 + to bilateral lower legs. DP, PT pulses palpable to bilateral feet. Varicosities: + to bilateral lower legs. Hemosiderin staining: + to bilateral lower legs. Stasis dermatitis: none Callus: + to bilateral plantars and right medial hallux. Bilateral feet warm to touch. Wound location Measurement 12/02/19 Measurement 11/23/19 Measurement 11/19/2019 Measurement 11/11/2019 Wound Bed Periwound skin Left Plantar ?? 1.0 x 1.0 x 0.2 cm 1.1 x 1.1 x 0.3 cm 1.2 cm x 1.4 cm x 0.2 cm ?? UM: 0.1 cm at 3:00 1.0 cm x 1.0 cm x 0.4 cm 100% smooth pink Non-granulating callous circumferentially Right Plantar??(5th MTH) 0.1 x 0.3 x <0.1 cm 0.2 x 0.1 x < 0.1 cm 0.4 cm x 0.2 cm x <0.1 cm0.3 cm x 0.1 cm x 0.2 cm 100% pink, moist non-granultaing tissue [place], dry and intact Right hallux (dorsal) 0.1 x 0.1 x 0.1 cm x x x 100% pink [place], dry, peeling Right calf 36.0 cm Right ankle 25.0 cm Left calf 36.0 cm Left ankle 27.0 cm The following photos were taken: Left plantar foot Right hallux Right plantar foot Treatment: Cleansed wounds with normal saline and gauze. Removed devitalized tissue, slough from plantar wounds with #15 scalpel and curette down to and including subcutaneous tissue < 20 sq cm. Bleeding: small amount from the left foot Callous paired to right hallux without incident. Dsg: applied Left plantar: - promogran valerie, Mepilex foam and medipore tape Right Plantar: Mepilex foam and medipore tape Right hallux: baby border Applied double layer E tubi-factory maintenance technician for medium tissue support, not able to figueroa high compression. Assessment/Plan: Mahin Ramos is a 64 y.o. male with chronic ulcers on the plantar aspect of his feet. Ulcer with slightly smaller measurements today. No signs of local infection. Previous DONTAE's/[id number]. Previous x-ray of left suspicious for osteo, MRI scheduled for 12/15/[address] Gómez. Will continue with promogram valerie for antimicrobial effects and to reduces level of proteases (MMPs) to help restore balance to wound microenvironment, promoting granulation tissue, followed by foam and tape for protection, exudate managment and moist wound healing. We reviewed the importance of protein intake, smoking cessation and offloading. He does continues to wear custom offloading shoes. Ordered dressing supplies (gauze, saline/wound cleanser, non border foam, and medipor tape). Follow up: weekly or sooner with questions or concerns. Wound care instructions: Left plantar foot - change dressing every 2-3 days Cleanse the area with saline and pat dry. Place Promogran valerie into the wound bed. If the wound bed is dry, you may moisten it with a few drops of saline. The Promogran will be absorbed by the wound. You do not need to remove it with dressing changes. Cover with a Mepilex border and change every 3 days unless wet or soiled. Right great toe and right plantar foot - 1. Cleanse with normal saline, pat dry. 2. Foam and tape for protections and moist wound healing. Monitor for signs of infection which may include: Fever Sweats Chills Nausea, Vomiting or Diarrhea Unexplained increase in Blood Glucose levels At or around the wound site: Increased pain Swelling or edema Redness Warmth Purulent drainage (thick yellow/green drainage) Malodor [facility] with any above symptoms Friday- Friday 8:00AM-4:30PM ([phone]). If weekends / holidays / evenings, please report to the Emergency Department. How to use Tubigrip (Size E for medium tissue support) 1. Cut Tubigrip to twice the length required for limb, allowing an extra 2-3cm for overlap. 2. Pull Tubigrip onto limb like a stocking. 3. Double Tubigrip back over limb. Ensure upper edge is taken 2-3cm higher up the limb than the ?rst. 4. Check to make sure that there is no bunching or creases in the tubigrip that may cause pressure injuries. Apply in the morning and take off at night. Check your skin once daily for any pressure related areas. Contact the [facility] with any above symptoms Friday- Friday 8:00AM-4:30PM ([phone]). If weekends / holidays / evenings, please report to the Emergency Department. documented in this encounter Plan of Treatment Upcoming Encounters Date Type Specialty Care Team Description 12/11/2021 Appointment Radiology 12/11/2021 Office Visit Orthopaedics Marion Tavera APRN [facility] ER DR ORTHOPAEDIC SURG [place], [place] [address] (Wo rk) 01/15/2022 Appointment Radiology Stiven Cervantes MD [facility] er Pulmonary Medici [place], [place] [address] (Wo rk) Scheduled Procedures Name [...] Esquivel, Understanding Action Plan 9:07 AM EDT) [facility] Note: Formatting of this note might be [...] skin documented in this encounter Care Teams Variety Lathe Operator Relationship Specialty Start Date End Date Brian Fall APRN PCP - General Internal Medicine 04/07/[address] [place] [phone] documented as of this encounter
--- OUTSIDE RECORDS SUMMARY | 2021-11-30 08:21 | XMS_ITS | Encounter Summary ---
:1955 Author Organization [facility] Address [address] [place] [address] Care Team Providers Name Role Phone Brian Fall APRN Primary Care Provider Encounter Details Date Type Department Care Team Description 02/23/2020 Hospital Encounter XRay at [facility] Gordon Mallory Chronic pain of left knee; [address] MD History of left knee surgery; [place], [place] [facility] Toe ulcer, righ t, limited to breakdown of skin [id number] CENTER [phone] ORTHOPAEDICS [place] [id number] Social History Tobacco Use Types Packs/Day Years [...] mg Tablet mouth three times a day pantoprazole EC Take 40 mg by mouth 2 0 08/22/2020 (Protonix) 40 mg times daily. Tablet, Delayed Release (E.C.) ondansetron ODT Take 1 tablet by mouth 90 tablet 1 10/01/19 20 03/14/2020 (Zofran-ODT) 4 mg every 8 hours. Tablet, Rapid Dissolve citalopram (CELEXA) 20 Take 20 mg by [...] 12/11/2021 Office Visit Orthopaedics Marion Tavera , DIRECTOR OF MECHANICAL ENGINEERING [facility] ORTHOPAEDIC SURG [place], [place] [address] (Wo rk) 01/15/2022 Appointment Radiology Stiven Cervantes MD [facility] Pulmonary Medici nelly [place], [place] [address] (Wo rk) Scheduled Procedures [...] Priority Date/Time Associated Diagnosis Comme nts XR KNEE STANDING Routine 02/23/2020 3:03 PM Chronic pain of le ft Results for this ALIGNMENT AP LAT EDT knee procedure are in [place] History of left knee th e results LEFT surgery section. XR FOOT MIN 3 VIEWS Routine 02/23/2020 3:03 PM Toe ulcer, righ t, Results for this RIGHT EDT limited to breakdown procedu re are in of skin the results section. documented in this encounter [...] Electronically signed by: Gordon Monsivais MD , [facility] ([phone]), at 02/23/2020 3:30 PM Narrative 02/23/2020 3:30 [...] For questions regarding this report, please contact [facility] number below. Electronically signed by: Gordon Monsivais MD , [facility] ([phone]), at 02/23/2020 3:30 PM Niki Stockton DIRECTOR OF MECHANICAL ENGINEERING IMG DX ORDERABLES XR Knee Standing Alignment AP Lat [place] Left (02/23/2020 3:03 PM EDT) Anatomical Region Laterality Modality Left Digital Radiography Specimen (Source) Anatomical Location Collection Method / Collectio n Time Received Time / Laterality Volume Impressions 02/23/2020 4:16 PM EDT Left knee: 1. ??Post left TKA without radiographic complication. 2. ??Varus alignment of the left lower e xtremity. Right knee: 1. ??Moderate right knee osteoarthropath y. 2. ??Varus alignment of the right lower extremity. I have personally reviewed the image(s) and the resident's interpretation and agree with the findings, Gordon Monsivais MD at 02/23/2020 4:16 PM Thank you for letting us participate in the care of this patient. For questions regarding this report, please contact e number below. ? Electronically signed by: Gordon Monsivais MD , [facility] ([phone]), at 02/23/2020 4:16 PM Narrative 02/23/2020 4:16 PM EDT EXAMINATION: XR KNEE STANDING ALIGNMENT AP LAT [place] LEFT CLINICAL HISTORY: Left Knee Pain Hx of L eft Knee Surgery TECHNIQUE: Separate images of the pelvis , knees and feet were acquired in the AP projection with the patient standing. yordy images were stitched together to form a composite image of the pelvis and legs allowing for evaluation of lower extremity alignment in the weight bearin g position. COMPARISON: Knee radiograph 08/14/2016 day back to 10/26/2015 FINDINGS: Left knee: Post left total knee arthropl asty with elongated femoral and tibial stems. Prosthesis is intact and unchange d in alignment. Decreased bone mineralization in the distal femur and p roximal tibia is unchanged. No new periprosthetic lucency or fracture. No k nee effusion. Right knee: Moderate medial compartment predominant joint space narrowing with marginal osteophytes, subchondral sclero sis, and cyst formation. Status post bilateral total hip arthropl asty. Stent of the right total hip arthroplasty abuts the lateral cortex. Mechanical alignment: Left lower extremi ty mechanical axis projects approximately 11 mm medial to the tibial stem. Right lower extremity mechanical axis projects approximately 20 mm medial to the tibial eminence. Procedure Note Gordon Monsivais MD - 02/23/2020Formatting o f this note might be different from the original. EXAMINATION: XR KNEE STANDING ALIGNMENT AP LAT [place] LEFT CLINICAL HISTORY: Left Knee Pain Hx of L eft Knee Surgery TECHNIQUE: Separate images of the pelvis , knees and feet were acquired in the AP projection with the patient standing. Th yordy images were stitched together to form a composite image of the pelvis and legs allowing for evaluation of lower extremity alignment in the weight bearin g position. COMPARISON: Knee radiograph 08/14/2016 day back to 10/26/2015 FINDINGS: Left knee: Post left total knee arthropl asty with elongated femoral and tibial stems. Prosthesis is intact and unchange d in alignment. Decreased bone mineralization in the distal femur and p roximal tibia is unchanged. No new periprosthetic lucency or fracture. No k nee effusion. Right knee: Moderate medial compartment predominant joint space narrowing with marginal osteophytes, subchondral sclero sis, and cyst formation. Status post bilateral total hip arthropl asty. Stent of the right total hip arthroplasty abuts the lateral cortex. Mechanical alignment: Left lower extremi ty mechanical axis projects approximately 11 mm medial to the tibial stem. Right lower extremity mechanical axis projects approximately 20 mm medial to the tibial eminence. IMPRESSION Left knee: 1. Post left TKA without radiographic co mplication. 2. Varus alignment of the left lower ext remity. Right knee: 1. Moderate right knee osteoarthropathy. 2. Varus alignment of the right lower ex tremity. I have personally reviewed the image(s) and the resident's interpretation and agree with the findings, Gordon Monsivais MD at 02/23/2020 4:16 PM Thank you for letting us participate in the care of this patient. For questions regarding this report, please contact e number below. Gordon Mallory MD IMG DX ORDERABLES documented in this encounter Visit Diagnoses Diagnosis Chronic pain of left knee Pain in joint, lower leg History of left knee surgery Personal history of surgery to other org ans Toe ulcer, right, limited to breakdown o f skin documented in this encounter Care Teams Parish Worker Relationship Specialty Start Date End Date Brian Fall APRN PCP - General Internal Medicine 04/07/[address] [place] [phone] documented as of this encounter
--- OUTSIDE RECORDS SUMMARY | 2021-11-30 08:21 | XMS_ITS | Encounter Summary ---
:1955 [place] [address] Care Team Providers Name Role Phone Brian Fall APRN Primary Care Provider Reason for Visit Reason Comments Wound Check Encounter Details Date Type Department Care Team Description 11/23/2019 Office Visit Wound Care at [facility], Brandy athic ulcer of foot, right, with fat layer exposed; [facility] LISA Neuropathic ulcer of foot, left, with fa t layer exposed [facility] WOUND [place] [phone] Social History Tobacco Use Types Packs/Day Years Used Date Current Every Day Smoker Cigars, Cigarettes 1 42 Smokeless Tobacco: Never Used Alcohol Use Standard Drinks/Week Comments Yes 24 (1 standard drink = 0.6 oz pure alcoh ol) Sex Assigned at Date Recorded Not on file documented as of this encounter Last Filed Vital Signs Vital Sign Reading Time Taken Comments Blood Pressure 149/79 11/23/2019 2:23 PM EDT Pulse 51 11/23/2019 2:23 PM EDT Temperature 36.8 ??C (98.2 ??F) 11/23/2019 2:23 PM EDT Respiratory Rate - - Oxygen Saturation 97% 11/23/2019 2:23 PM EDT Inhaled Oxygen Concentration - - Weight - - Height - - Body Mass Index - - documented in this encounter Patient Instructions Patient InstructionsAlmita Stockton APRN - 11/23/2019 2:30 PM EDT Wound care instructions: Left plantar foot [...] drainage (thick yellow/green drainage) Malodor Contact the [facility] with any above symptoms Friday- Friday 8:00AM-4:30PM ([phone]). If weekends / holidays / evenings, please report to the Emergency Department. documented in this encounter Progress Notes Almita Stockton APRN - 11/23/2019 2:30 PM EDT Images from the original note were not included. [facility] Progress Note HPI: Soledad Wahl is a 64 y.o. male returns for follow up of neuropathic ulcers on the bilateral plantar feet. He was initially??referred by Brian Fall APRN for evaluation of bilateral foot ulcers. 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 He was admittedto and had amputation and IV abx. Left foot with MRI in 08/2019 showing small area of altered bonemarrow signal intensity within fourth metatarsal had and [...] ?? He has custom made shoes from [employer], he received in 09/2019. ?? ABIs 10/25/19: RIGHT: No LEAD. LEFT: No LEAD. ?? X-RAY OF LEFT FOOT 10/25/2019 ?? IMPRESSION Postoperative changes of the fifth ray. No gross osseous destruction to suggest advanced osteomyelitis. ?? Type of Wound Neuropathic ulcer. ?? Home Health Agency: No Pertinent labs/tests: Results for SOLEDAD WAHL ( ) as of 11/23/2019 15:22 Ref. Range 10/25/2019 16:29 Glucose Lvl Latest Ref Range: 65 - 199 mg/dL 105 Total Protein Latest Ref Range: 6.1 - 8.0 gm/dL 7.8 Albumin Latest Ref Range: 3.2 - 5.2 gm/dL 4.5 ROS: Negative for constitutional symptoms Appetite: good Pain: none FBS: na PE: Vital Signs:BP 149/79 (BP Location (NBP): Right arm, Patient Position: Sitting, BP Cuff Sizes: Adult(25-34 cm)) Pulse 51 Temp 36.8 ??C (98.2 ??F) (Oral) SpO2 97% Pleasant, alert , in NAD. Arrives accompanied by his . Mobility: independent Edema: ++ Odor: none Wound location Measurement 11/23/19 Measurement 11/19/2019 Measurement 11/11/2019 Wound Bed Periwound skin Left Plantar ?? 1.1 x 1.1 x 0.3 cm 1.2 cm x 1.4 cm x 0.2 cm ?? UM: 0.1 cm at 3:00 1.0 cm x 1.0 cm x 0.4 cm 100% smooth pink Non-granulating callous circumferentially Right Plantar??(5th MTH) 0.2 x 0.1 x < 0.1 cm 0.4 cm x 0.2 cm x <0.1 cm 0.3 cm x 0.1 cm x 0.2 cm 100% pink, moist non-granultaing tissue [place], dry and intact Right calf 32 Right ankle 22 Left calf 35 Left ankle 25 The following photos were taken: Left plantar foot Right hallux Right plantar foot Treatment: Cleansed wounds with normal saline and gauze. Removed devitalized tissue, slough from plantar wounds with #15 scalpel and curette down to and including subcutaneous tissue < 20 sq cm. Bleeding: small amount from the left foot Dsg: applied Left foot - promogran valerie, Mepilex foam and tape Right hallux and right plantar foot - Mepilex lite border dressings Assessment/Plan: Soledad Wahl is a 64 y.o. male with chronic ulcers on the plantar aspect of his feet, the left ulcer is not improving. Ulcer on the right foot is slowly improving. Right hallux with erythema possibly related to irritation from the shoe/boot. No open area will protect with dressing. Patient is seeing Dr. Gómez later this afternoon. Follow up: weekly Wound care instructions: Left plantar foot - [...] with any above symptoms Friday- Friday 8:00AM-4:30PM ([phone]). If weekends / holidays / evenings, please report to the Emergency Department. documented in this encounter Plan of Treatment Upcoming Encounters Date Type Specialty Care Team Description 12/11/2021 Appointment Radiology 12/11/2021 Office Visit Orthopaedics Marion Tavera APRN [facility] DR [facility] [place] [facility] [place] [address] (Wo rk) 01/15/2022 Appointment Radiology Stiven Cervantes MD [facility] Pulmonary Mediccharlie villegas [place], [place] [address] (Wo rk) Scheduled Procedures Name [...] Understanding Action Plan 9:07 AM EDT) [facility] Note: Formatting of this note [...] exposed documented in this encounter Care Teams Cemetery Warden Relationship Specialty Start Date End Date Brian Fall APRN PCP - General Internal Medicine 04/07/19 [address] [place] [phone] documented as of this encounter
--- OUTSIDE RECORDS SUMMARY | 2021-11-30 08:21 | XMS_ITS | Encounter Summary ---
:1955 [place] [address] Care Team Providers Name Role Phone Brian Fall APRN Primary Care Provider Encounter Details Date Type Department Care Team Description 12/15/2019 Office Visit Wound Care at [facility] lulitis of leg, right (Primary Dx); [facility] LISA Neuropathic ulcer of foot, right, with f at layer exposed; [facility] Neuropathic ulcer of foot, l eft, with fat layer exposed [place] [phone] Social History Tobacco Use Types Packs/Day Years Used Date Current Every Day Smoker Cigars, Cigarettes 1 42 Smokeless Tobacco: Never Used Alcohol Use Standard Drinks/Week Comments Yes 24 (1 standard drink = 0.6 oz pure alcoh ol) Sex Assigned at Date Recorded Not on file documented as of this encounter Patient Instructions Patient InstructionsNikia Kemp APRN - 12/15/2019 4:00 PM EDT Wound care instructions: ??Right lower leg-Change every 3 days. Remove old dressing and cleanse with normal saline. Apply a new Mepilex AG border. Left plantar foot - change dressing every [...] every 3 days unless wet or soiled. ?? Right great toe and right plantar foot - 1. Cleanse with normal saline, pat dry. 2. Foam and tape for protections and moist wound healing. ?? Monitor for signs of infection which may include: Fever Sweats Chills Nausea, Vomiting or Diarrhea Unexplained increase in Blood Glucose levels ?? At or around the wound site: Increased pain Swelling or edema Redness Warmth ?? Purulent drainage (thick yellow/green drainage) Malodor ?? Contact the [facility] with any above symptoms Friday- Friday 8:00AM-4:30PM ([phone]). If weekends / holidays / evenings, please report to the Emergency Department. documented in this encounter Progress Notes Nikia Kemp APRN - 12/15/2019 4:00 PM EDT Images from the original note were not included. [facility] Progress Note CC: Mahin Ramos is a 64 y.o. male returns for follow up of neuropathic ulcers on the bilateral plantar feet. He also developed a new wound to right anterior lower leg on 12/14/19, he does not recall any trauma. HPI from previous visits: He was initially??referred [...] ?? He has custom made shoes from [employer], he received in 09/2019. ?? ABIs 10/25/19: RIGHT: No LEAD. LEFT: No LEAD. ?? X-RAY OF LEFT FOOT 10/25/2019 ?? IMPRESSION Postoperative changes of the fifth ray. No gross osseous destruction to suggest advanced osteomyelitis. MRI left foot 12/15/19: Results pending ?? Type of Wound Neuropathic ulcer. ?? Home Health Agency: No Pertinent labs/tests: Lab Results Component Value Date WBC 12.7 (H) 10/25/2019 HGB 15.1 10/25/2019 HCT 45.4 10/25/2019 MCV 97.4 (H) 10/25/2019 PLATELET 432 (H) 10/25/2019 Albumin Date Value Ref Range Status 10/25/2019 4.7 3.2 - 5.2 gm/dL Final 10/25/2019 4.5 3.2 - 5.2 gm/dL Final Review Of Systems: Mr. Ramos is here today for F/U visit R/T bilateral plantar neuropathic ulcers. He did undergo a MRI today with results pending. He developed a new wound to anterior LLE on 12/14/19 but does recall how it occurred. He reports tenderness to the wound with redness. His performs the wound care and applied a border dressing to new wound right leg with a topicalOTC antibiotic ointment. Denies constitutional symptoms of fever, chills, sweats. MAULIK: denies N/V, diarrhea Diet: Eating well. Wound care: significant other helps with dressing changes. Neuropathy: + to bilateral feet. Pain: denies Objective: Temp-98.0 P-54 BP-127/54 General: pleasant, 64 year old male in NAD. Arrives with his . Mobility: Ambulates with cane. Edema: 1 + to bilateral lower legs. DP, PT pulses: Right foot warm to touch. Stasis dermatitis: none Callus: + to bilateral plantars and right medial hallux. Bilateral feet warm to touch. New wound to anterior RLE with periwound erythema and warmth. Wound location Measurement 12/15/19 Measurement 11/23/19 Measurement 11/19/2019 Measurement 11/11/2019 Wound Bed Periwound skin Right anterior lower leg-new wound 1.2cm L x 2.5cm W x 0.1cm D Left Plantar ?? 0.7cm L x 0.9cm W x 0.2 cm D 1.1 x 1.1 x 0.3 cm 1.2 [...] 0.2 cm 100% pink, moist non-granultaing tissue [place], dry and intact Right hallux (dorsal) 0.7 x 0.5 x 0.1 cm x x x 100% pink [place], dry, peeling Right calf 34.2 cm Right ankle 24.2 cm Left calf 36.0 cm Left ankle 25.5 cm Left plantar foot Right plantar Right anterior lower leg-new wound Treatment: Wound Locations: Right anterior lower leg, right plantar foot, left plantar foot and dorsal right hallux Cleansed wounds with normal saline and gauze. Debridement: Removed devitalized tissue from right and left plantar wounds with #15 scalpel and curette down to and including subcutaneous tissue < 20 sq cm.to reveal healthier tissue. Bleeding:None. Dsg: applied Left plantar: - promogran valerie, Mepilex foam and medipore tape Right Plantar: Mepilex foam and medipore tape Right hallux: baby border Right anterior lower leg-Mepilex AG border Applied double layer E tubi-lock and dam equipment repairer for medium tissue support. Assessment/Plan: Mahin Ramos is a 64 y.o. male with chronic ulcers on the plantar aspect of his feet. Previous x-ray of left suspicious for osteo, MRI was performed today with results pending. He is scheduled for F/U with Podiatry-Dr. Gómez on 12/21/19. Will continue with promogram valerie to left plantar wound for antimicrobial effects and to reduces level of proteases (MMPs) to help restore balance to wound microenvironment, promoting granulation tissue. Protective foam dressing to right hallux and right plantar ulcer. New wound to anterior RLE with silver foam dressing. A Rx for Keflex 500 mg BID x 7 days was sent [facility] in [place]. Cr Cl calculated to 97.53 with recent serum creatinine of 0.98. He and his were instructed on new wound care and to start the Keflex today. He continues use of front offloading shoe to left foot. He will F/U one week wound center same day as Podiatry. He agreed to POC. Follow up: weekly or sooner with questions or concerns. Wound care instructions: Wound care instructions: ??Right lower leg-Change every 3 days. Remove old dressing and cleanse with normal saline. Apply a new Mepilex AG border. Left plantar foot - change dressing every [...] every 3 days unless wet or soiled. ?? Right great toe and right plantar foot - 1. Cleanse with normal saline, pat dry. 2. Foam and tape for protections and moist wound healing. ?? Monitor for signs of infection which may include: Fever Sweats Chills Nausea, Vomiting or Diarrhea Unexplained increase in Blood Glucose levels ?? At or around the wound site: Increased pain Swelling or edema Redness Warmth ?? Purulent drainage (thick yellow/green drainage) Malodor ?? [facility] with any above symptoms Friday- Friday 8:00AM-4:30PM ([phone]). If weekends / holidays / evenings, please report to the Emergency Department. documented in this encounter Plan of Treatment Upcoming Encounters Date Type Specialty Care Team Description 12/11/2021 Appointment Radiology 12/11/2021 Office Visit Orthopaedics Marion Tavera APRN [facility] ORTHOPAEDIC SURG [place], [place] [address] (Wo rk) 01/15/2022 Appointment Radiology Stiven Cervantes MD [facility] Emergency Department Dr Carlos villeg[address] [place], [place] [address] (Wo rk) Scheduled Procedures [...] Action Plan 9:07 AM EDT) [facility] Note: Formatting of this note might be d ifferent from the original. Patient Goal: To experience less side ef fects than his past regimen of Peg and Ribavirin Timeframe to meet goal: 3 months of ther apy documented as of this encounter Visit Diagnoses Diagnosis Cellulitis of leg, right - Primary Cellulitis and abscess of leg, except fo ot Neuropathic ulcer of foot, right, with f at layer exposed Neuropathic ulcer of foot, left, with fa t layer exposed documented in this encounter Care Teams Saddle Mechanic Relationship Specialty Start Date End Date Brian Fall APRN PCP - General Internal Medicine 04/07/[address] [place] [phone] documented as of this encounter
--- OUTSIDE RECORDS SUMMARY | 2021-11-30 08:21 | XMS_ITS | Encounter Summary ---
:1955 [place] [address] Care Team Providers Name Role Phone Brian Fall APRN Primary Care Provider Encounter Details Date Type Department Care Team Description 03/01/2020 Office Visit Wound Care at [facility] Ne uropathic ulcer of foot, left, with fat layer exposed; [facility] LISA Neuropathic ulcer of foot, right, with f at layer exposed [facility] [place] [phone] Social History Tobacco Use Types Packs/Day Years Used Date Current Every Day Smoker Cigars, Cigarettes 1 42 Smokeless Tobacco: Never Used Alcohol Use Standard Drinks/Week Comments Yes 24 (1 standard drink = 0.6 oz pure alcoh ol) Sex Assigned at Date Recorded Not on file documented as of this encounter Last Filed Vital Signs Vital Sign Reading Time Taken Comments Blood Pressure 149/81 03/01/2020 5:23 PM EDT Pulse 50 03/01/2020 5:23 PM EDT Temperature 36.4 ??C (97.6 ??F) 03/01/2020 5:23 PM EDT Respiratory Rate - - Oxygen Saturation 95% 03/01/2020 5:23 PM EDT Inhaled Oxygen Concentration - - Weight - - Height - - Body Mass Index - - documented in this encounter Patient Instructions Patient InstructionsNiki Stockton APRN - 03/01/2020 4:45 PM EDT Post Visit Instructions (Home Health Agency and/or [...] Beef, chicken, fish Beans, Lentils, peanut butter [place] Citizen and regular yogurt Cheese, eggs ?? Boost, Ensure shakes Protein powder in a smoothie of your choice ?? Foot Care ?? If you have high [...] taken care of by your physician or seam rubber. ?? Avoid using any chemical or strong antiseptic solutions on your feet. Iodine, salicylic acid, corn/callus removers may burn the skin. documented in this encounter Progress Notes Niki Stockton APRN - 03/01/2020 4:45 PM EDT Images from the original note were not included. [facility] Progress Note CC: [...] hyperlipidemia. He has custom made shoes from [employer], he received in 09/2019. ABIs 10/25/19: RIGHT: No LEAD. LEFT: No LEAD. X-RAY OF LEFT FOOT 10/25/2019 IMPRESSION Postoperative changes of the fifth ray. No gross osseous destruction to suggest advanced osteomyelitis. MRI 12/15/2019: Left Foot IMPRESSION Imaging was focused on the lateral aspect of the foot and the first ray was incompletely imaged. ?? Bone marrow edema centered at the fourth MTP joint is likely stress related, reactive edema, or osteitis. No evidence of osteomyelitis of the fourth metatarsal head. ?? 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 There is no evidence of osteomyelitis of the residual fifth metatarsal. Right Foot xray 02/23/20 FINDINGS: No acute fracture or dislocation. There [...] first interphalangeal joint. Recommend MRI for further evaluation. Type of Wound Neuropathic ulcer. Home Health [...] have intermittent pain to legs and feet. Right toe swelling and discoloration resolved. Objective: BP 149/81 (BP Location (NBP): Right arm, Patient Position: Sitting, BP Cuff Sizes: Large Adult (32-43 cm)) Pulse 50 Temp 36.4 ??C (97.6 ??F) (Oral) SpO2 95% General: pleasant, 64 year old male in NAD. Arrives with . Mobility: wheelchair for long distance. Edema:1 + to bilateral feet. DP, PT pulses palpable bilaterally. Varicosities: + to bilateral feet. Hemosiderin staining: none Stasis dermatitis: + to bilateral dorsal feet Callus: significant to bilateral plantars. Bilateral feet warm to touch. Wound location Measurement 03/01/20 Measurement 02/23/20 Measurement 01/26/20 Wound Bed Periwound skin Exudate/Odor Left Plantar ?? 0.7 x 0.7 x 0.5 cm 0.7 x 1.0 x 0.5 cm 0.6 x 0.6 x 0.2 cm 75% smooth pink non-granulating 25% dark [place] Visible bone 100% pink, slightly increased warmth Moderate serous/none Right Plantar??(5th MTH) No open area No open area 0.2 x 0.2 x 0.1 cm 100% epithelial with intradermal bleeding [place], dry and intact Minimal serous Right hallux (dorsal) No open area No open areas 0.2 x 0.1 x 0.1 cm 100% epithilial [place], dry, peeling Moderate serous/none Right Anterior Lower leg No open area 0.6 x 0.4 x <0.1 cm x 100% pink [place], dry Minimal serous PHOTO Left Plantar Right plantar Right Hallux Left Dorsal foot Treatment: Wound Location: bilateral plantars, right hallux, right anterior lower leg Cleansed wound with normal saline and gauze. Lidocaine: None. Conservative Sharp Debridement: removed devitalized tissue using a #15 blade, forcep and curet, lessthan 20 cm sq down to and including subcutaneous tissue to reveal healthier tissue. Dressings/wraps applied: Left Plantar: Apply Aquacel Ag ribbon, zinc to dmitriy-wound, foam, secured with medipore tape. Right Plantar: Applied non border foam and secured with medipore tape. Right anterior: Applied non border foam and secured with medipore tape. Bilateral Met pads to shoes. The patient's own compression stockings were applied to the bilateral lower extremities. Pain Reassessment post treatment (0-10): 0 Assessment: Mahin Ramos is a 64 y.o. 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 There are no signs or symptoms of infection noted on examination today, with exception of slightly increased warmth. DONTAE's 10/25/19 with no LEAD. 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 There is no evidence of osteomyelitis of the residual fifth metatarsal. Xray of right foot showed findings concerning for osteomyelitis centered at the first interphalangeal joint. The right plantar ulcer and hallux remains healed. The left has slightly smaller measurements but with visable bone around 3 o'clock. Will continue Aquacel AG to left plantar for antimicrobial and exudate management and non border foam to right plantar and right anterior lower leg for protection and exudate. He continues to wear the forefoot offloading shoe on the left foot and a hexagon offloading shoe on the right foot with added met pads to these and slippers he wears at home on occation. I instructed the patient to continue to elevate his lower extremities frequently to help manage the edema. He will follow up here at the [facility] in one week or sooner if he has any concerns. He has previously ordered custom shoes that he will resume wearing once wounds heal. We reviewed signs and symptoms of infection and when to seek medical treatment. The patient verbalized understanding and agreement with the plan of care and will contact us with any questions or concerns. Will schedule MRI of bilateral feet to evaluate for osteo, with possible bone biopsy with Dr. Valenzuela results. Will repeat CRP, Sed rate, CBC prior to next visit Wound(s) currently improving Barriers to healing: Neuropathy, offloading, infection, smoking Plan: -Continue with local wound care. Follow up: Post Visit Instructions (Home Health Agency and/or [...] Beef, chicken, fish Beans, Lentils, peanut butter [place] Citizen and regular yogurt Cheese, eggs ?? Boost, Ensure shakes Protein powder in a smoothie of your choice ?? Foot Care ?? If you have high [...] taken care of by your physician or seam rubber. ?? Avoid using any chemical or strong antiseptic solutions on your feet. Iodine, salicylic acid, corn/callus removers may burn the skin. ?? documented in this encounter Plan of Treatment Upcoming Encounters Date Type Specialty Care Team Description 12/11/2021 Appointment Radiology 12/11/2021 Office Visit Orthopaedics Marion Tavera APRN [facility] ORTHOPAEDIC SURG [place], [place] [address] (Wo rk) 01/15/2022 Appointment Radiology Stiven Cervantes MD [facility] Pulmonary Medici [place], [place] [address] (Wo rk) Scheduled Procedures Name [...] exposed documented in this encounter Care Teams Card Seller Relationship Specialty Start Date End Date Brian Fall APRN PCP - General Internal Medicine 04/07/19 [address] [place] [address] documented as of this encounter
--- OUTSIDE RECORDS SUMMARY | 2021-11-30 08:21 | XMS_ITS | Encounter Summary ---
:1955 Author Organization [facility] Address [address] [place] [address] Care Team Providers Name Role Phone Brian Fall APRN Primary Care Provider Encounter Details Date Type Department Care Team Description 12/30/2019 Office Visit Podiatry at [facility] Maia Gómez DPM Foot ulcer, left, with fat layer exposed ; [facility] Asp[place] t ulcer, right, with fat layer exposed; Drive Alcohol-induced polyneuropathy; [place] [phone] Toe amputee; [phone] Cigarette smoker Social History Tobacco Use Types Packs/Day Years Used Date Current Every Day Smoker Cigars, Cigarettes 1 42 Smokeless Tobacco: Never Used Alcohol Use Standard Drinks/Week Comments Yes 24 (1 standard drink = 0.6 oz pure alcoh ol) Sex Assigned at Date Recorded Not on file documented as of this encounter Progress Notes Maia Gómez DPM - 12/30/2019 8:45 AM EDT Images from the original note were not included. Outpatient [facility] Note Name: Mahin Ramos Age:64 y.o. MR#: [id number] Date of Service: 12/30/2019 SUBJECTIVE: Mahin Ramos is a 64 y.o. 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 Patient relates following up with wound care regularly. Relates improvement in ulcerations in recent weeks. Patient has previously completely course of linezolid 600 mgfor 42 days, ending on October 13, 2019 and course of Keflex in August 2019. Relates dressing changes every other day. Relates smoking 1 pack/day. Relates chronic numbness in feet. Denies any constitutionalsymptoms today. No other pedal complaints. Allergies Allergen [...] file Gets together: Not on file Attends confucianism service: Not on file Active member of [...] Social History Narrative Pt [place]. 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 Pt has been exposed to [...] ROS: MSK: +history of partial foot amputation secondary to osteomyelitis Skin: +foot ulcers The remainder of 10 ROS were reviewed and negative. OBJECTIVE: GEN: Patient is AAOX3, NAD. Gait stable with forefoot offloading boot left lower extremity. DERM: Skin atrophic and diffusely xerotic with ulcerations noted plantar aspect of bilateral forefoot--improved with decreased size and increased epithelialization. Left plantar ulceration measures approximately 0.8 x 0.9 x 0.2 cm and right plantar measures 0.6 x 0.6 x 0.1 cm wound beds granular with s light fibrosis. Mild serous exudate left. Decreased hair growth noted [...] amputation sites left foot well-healed. ?? DIAGNOSTICS: EXAMINATION: MRI [...] ?? 10/01/19: CRP: 4.20 ?? ASSESSMENT: Bilateral neuropathic foot ulcers--uninfected, negative for osteomyelitis Peripheral neuropathy secondary to alcohol dependence Tobacco use History of partial digital amputations/osteomyelitis left foot PLAN: Patient seen and evaluated. Educated patient on condition and treatment options. I personally reviewed patient's recent MRI and discussed findings with patient: Negative for osteomyelitis Encourage patient to continue following up with wound care regularly for management of ulceration Explained he remains at risk of worsening and importance of close monitoring for any changes Smoking cessation reiterated Counseling provided on wound care and peripheral neuropathy Previous DONTAE/TCPO2 results: WNL Wound debridement by wound care to follow Continue with dressing as per wound care. Daily foot inspection and moisturization advised. Continue with forefoot offloading shoe. Patient would benefit from custom shoes in the future once ulcerations have healed and will reevaluate for this next visit. Strictly no barefoot ambulation. Follow up with PCP regularly for continued medical management. Signs and symptoms of infection reviewed and provided below. Advised patient to seek prompt medical care if any worsening or changes noted Answered all questions. Patient verbalized understanding of all instructions FOLLOW UP: 1 week wound care, 6 weeks podiatry for evaluation/RFC or sooner if any concerns arise Please [...] to the Emergency Department. Maia Gómez DPM [place], [facility] documented in this encounter Plan of Treatment Upcoming Encounters Date Type Specialty Care Team Description 12/11/2021 Appointment Radiology 12/11/2021 Office Visit Orthopaedics Marion Tavera , FLOORING SALESPERSON [facility] ER DR ORTHOPAEDIC SURG [place], [place] [address] (Wo rk) 01/15/2022 Appointment Radiology Stiven Cervantes MD [facility] Pulmonary Medici nelly [place], [place] [address] (Wo rk) Scheduled Procedures Name [...] d Alcohol-induced polyneuropathy Alcoholic polyneuropathy Toe amputee Cigarette smoker Tobacco use disorder documented in this encounter Care Teams Maintenance Of Way Superintendent Relationship Specialty Start Date End Date Brian Fall APRN PCP - General Internal Medicine 04/07/[address] [place] [phone] documented as of this encounter
--- OUTSIDE RECORDS SUMMARY | 2021-11-30 08:21 | XMS_ITS | Encounter Summary ---
:1955 Author Organization [facility] [place] [address] Care Team Providers Name Role Phone Brian Fall APRN Primary Care Provider Reason for Visit Reason Comments Wound Check Encounter Details Date Type Department Care Team Description 01/06/2020 Office Visit Wound Care at [facility], Neuro pathic ulcer of foot, right, with fat layer exposed; [facility] RN Neuropath ic ulcer of foot, left, with fat layer exposed; [facility] Neuropathic ulcer of toe of right foot [place] [address] Social History Tobacco Use Types Packs/Day Years Used Date Current Every Day Smoker Cigars, Cigarettes 1 42 Smokeless Tobacco: Never Used Alcohol Use Standard Drinks/Week Comments Yes 24 (1 standard drink = 0.6 oz pure alcoh ol) Sex Assigned at Date Recorded Not on file documented as of this encounter Last Filed Vital Signs Vital Sign Reading Time Taken Comments Blood Pressure 168/85 01/06/2020 4:20 PM EDT Pulse 61 01/06/2020 4:20 PM EDT Temperature 36.8 ??C (98.3 ??F) 01/06/2020 4:20 PM EDT Respiratory Rate - - Oxygen Saturation 92% 01/06/2020 4:20 PM EDT Inhaled Oxygen Concentration - - Weight - - Height - - Body Mass Index - - documented in this encounter Progress Notes Radha Salazar RN - 01/06/2020 4:45 PM EDT Images from the original [...] hyperlipidemia. He has custom made shoes from [employer], he received in 09/2019. ABIs 10/25/19: RIGHT: [...] prior to procedure? no Objective: Vitals: BP 168/85 (BP Location (NBP): Right arm, Patient Position: Sitting, BP Cuff Sizes: Adult (25-34 cm)) Pulse 61 Temp 36.8 ??C (98.3 ??F) (Oral) SpO2 92% Dressings were removed. There was small amount to moderate amount of serosanguinous drainage. Malodor no Erythema no Pulses: Dorsalis Pedis: Right:palpable Left: palpable Posterior Tibia: Right: palpable Left: palpable Wound location Measurement 12/23/2019 Measurement 12/15/19 Wound [...] x <0.1 cm 100% red, moist tissue [place], dry and intact Right hallux (dorsal) No open areas 0.7 x 0.5 x 0.1 cm 75% pink, moist tissue 25% yellow/white tissue, ? tendon [place], dry, peeling ?? PHOTO Left Plantar Right Plantar Right Hallux Right Medial Second Toe Treatment: Analgesia: none administered prior to debridement [...] with a Mepilex border dressing. The patient was placed robert hexagon offloading shoe on the right foot and wearing front forefoot offloader shoe on the left lower extremity. I removed the offloading pad in the offloading shoe today as it appeared to be laying directly under the wound. The patient's own compression stockings were applied to the bilateral lower extremities. Left plantar: Applied Iodosorb to the wound bed and covered with Mepilex non- bordered foam and Medipore tape. Right Plantar: Covered the area with a piece of Mepilex non-bordered foam and Medipore tape. Right hallux: Applied Iodosorb to the wound bed and covered with a piece of Mepilex non-bordered foam and Medipore tape. Right Second Toe: Applied a Mepilex border (baby) to the area for protection. Applied a double layer Medigrip, size F latex-free, to the bilateral lower extremities for medium tissue support. Pain Reassessment post treatment (0-10): 0 Assessment: Mahin Ramos is a 64 y.o. 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 He has history of left 5th toe amp due to osteo two years ago. There is some erythema noted on the periwound skin of the right hallux with some increased warmth. Niki Stockton APRN, joined the visit to assess. An x-ray was ordered of the right hallux, which the patient will get done today. This redness could be from pressure/friction from the patient's shoe, so he was placed in a hexagon offloading shoe today. The left plantar foot wound has decreased in depth today. We will continue the same treatment regimen at this time. The patient's is assisting him with wound care. He continues to wear the forefoot offloading shoe on the left foot. He has purchased his own compression stockings, which were applied to the bilateral lower extremities today. He will [facility] the [facility] inone week or sooner if he has any concerns. We reviewed signs and symptoms of infection and when to seek medical treatment. The patient verbalized understanding and agreement with the plan of care and will contact us with any questions or concerns. Wound(s) currently stalled Barriers to healing: Comorbidities Plan: -Continue with local wound care. -Patient to obtain imaging of the right hallux. Follow up: [facility] to [facility] in approximately 1 week. Post Visit Instructions (Home Health Agency and/or patient): Left Plantar Foot/Right Plantar Foot/Right Hallux: Change dressing every 2-3 days or sooner [...] ORsimilar. 6. Secure edges with skin prep. Right Second Toe: Change dressing every 2-3 days or sooner for 50% or greater strike through drainage. 7. Remove old dressing. 8. Cleanse wound with wound cleanser or normal saline and gauze. 9. Apply skin prep to periwound skin. 10. Cover wound bed with a Mepilex border [...] Beef, chicken, fish Beans, Lentils, peanut butter Sudanese and regular yogurt Cheese, eggs ?? Boost, Ensure shakes Protein powder in a smoothie of your choice ?? Should here from our outpatient scheduler for follow up appointment and scheduling [...] taken care of by your physician or heating equipment repairer. 6. Avoid using any chemical or strong antiseptic solutions on your feet. Iodine, salicylic acid, corn/callus removers may burn the skin. documented in this encounter Plan of Treatment Upcoming Encounters Date Type Specialty Care Team Description 12/11/2021 Appointment Radiology 12/11/2021 Office Visit Orthopaedics Marion Tavera APRN [facility] ORTHOPAEDIC SURG [place], [place] [address] (Wo rk) 01/15/2022 Appointment Radiology Stiven Cervantes MD [facility] Pulmonary Medici [place], [place] [address] (Wo rk) Scheduled Procedures Name [...] Action Plan 9:07 AM EDT) [facility] Note: Formatting of this note might be [...] fa t layer exposed Neuropathic ulcer of toe of right foot w ith fat layer exposed documented in this encounter Care Teams Anesthesiology Crna Relationship Specialty Start Date End Date Brian Fall APRN PCP - General Internal Medicine 04/07/[address] [place] [phone] documented as of this encounter
--- OUTSIDE RECORDS SUMMARY | 2021-11-30 08:21 | XMS_ITS | Encounter Summary ---
:1955 Author Organization [facility] [place] [address] Care Team Providers Name Role Phone Brian Fall APRN Primary Care Provider Encounter Details Date Type Department Care Team Description 11/01/2019 Telephone [place] [facility] Kessler, [facility] [place] [address] Social History Tobacco Use Types Packs/Day Years Used Date Current Every Day Smoker Cigars, Cigarettes 1 42 Smokeless Tobacco: Never Used Alcohol Use Standard Drinks/Week Comments Yes 24 (1 standard drink = 0.6 oz pure alcoh ol) Sex Assigned at Date Recorded Not on file documented as of this encounter Miscellaneous Notes Telephone Encounter - Franklin Kessler RN - 11/01/2019 11:[address] Dunne: Please let Mr. Ramos know that his inflammatory markers are up - that could be due to his non-healing wound. ??However, I would like him to have an MRE. ??He had a CT in August at [facility] without contrast, so not very helpful. ??Will put in an order. ??He may want it done at [facility]? Spoke to patient and his spouse and advised them of above. They would prefer to do at [facility] [place] Friday while here for another visit if possible. documented in this encounter Plan of Treatment Upcoming Encounters Date Type Specialty Care Team Description 12/11/2021 Appointment Radiology 12/11/2021 Office Visit Orthopaedics Marion Tavera APRN [facility] ORTHOPAEDIC SUR[place], [place] [address] (Wo rk) 01/15/2022 Appointment Radiology Stiven Cervatnes MD [facility] Pulmonary Medici nelly [place], [place] [address] (Wo rk) Scheduled Procedures Name [...] on filedocumented in this encounter Care Teams Mortgage Banker Relationship Specialty Start Date End Date Brian Fall APRN PCP - General Internal Medicine 04/07/[address] [place] [phone] documented as of this encounter
--- OUTSIDE RECORDS SUMMARY | 2021-11-30 08:21 | XMS_ITS | Encounter Summary ---
:1955 Author Organization [facility] [place] [address] Care Team Providers Name Role Phone Brian Fall APRN Primary Care Provider Reason for Referral Diagnostic Test (Routine) - Closed Specialty Diagnoses / Procedures Referred By Contact Refer red To Contact Radiology Diagnoses Chronic vomiting Abnormal laboratory test Jenaro Dunne MD [facility] Rad Mri Procedures MRI Enterography wwo Contrast [facility] [place] [address] [place] [address] Referral ID Status Reason Start Date Expiration Date Visits V isits Requested Authorized [id number] Closed Specialty 11/05/2019 05/02/2020 1 1 Service Requested Encounter Details Date Type Department Care Team Description 10/30/2019 Orders Only Gastroenterology at [facility] Jenaro Dunne Chronic vomiting; [facility] Jenni Yates [place] [address] [facility] [phone] [place] [address] Social History Tobacco Use Types Packs/Day Years [...] Office Visit Orthopaedics Marion Tavera APRN [facility] ORTHOPAEDIC SURG [place], [place] [address] (Wo rk) 01/15/2022 Appointment Radiology Stiven Cervantes MD [facility] Pulmonary Medici [place], [place] [address] (Wo rk) Scheduled Procedures Name [...] documented as of this encounter Results MRI Enterography wwo Contrast [...] below. ? Electronically signed by: Harley Dyer os, [facility] ([phone]), at 11/15/2019 9:46 AM Narrative 11/15/2019 9:46 [...] below. Electronically signed by: Harley Dyer os, [facility] ([phone]), at 11/15/2019 9:46 AM L Milan Dunne MD IMG MRI ORDERABLES documented in this encounter Visit Diagnoses Diagnosis Chronic vomiting Vomiting alone Abnormal laboratory test Other abnormal clinical finding Chronic vomiting Vomiting alone Abnormal laboratory test Other abnormal clinical finding documented in this encounter Care Teams Groundskeeper Relationship Specialty Start Date End Date Brian Fall APRN PCP - General Internal Medicine 04/07/[address] [place] [phone] documented as of this encounter
--- OUTSIDE RECORDS SUMMARY | 2021-11-30 08:21 | XMS_ITS | Encounter Summary ---
:1955 [place] [address] Care Team Providers Name Role Phone Brian Fall APRN Primary Care Provider Encounter Details Date Type Department Care Team Description 03/07/2020 Telephone Wound Care at Anusha Huerta, [facility] [place] [address] Social History Tobacco Use Types Packs/Day Years Used Date Current Every Day Smoker Cigars, Cigarettes 1 42 Smokeless Tobacco: Never Used Alcohol Use Standard Drinks/Week Comments Yes 24 (1 standard drink = 0.6 oz pure alcoh ol) Sex Assigned at Date Recorded Not on file documented as of this encounter Miscellaneous Notes Telephone Encounter - Anusha Rebollar LPN - 03/07/2020 1:37 PM EDT [facility] Tele[facility] Triage Note Patient Name: Mahin Ramos : 1955 [id number] VNA: none Caller: Padmini Ramos Chief Complaint/reason for call Increased drainage and swelling from left plantar wound Subjective: Padmini reports increase drainage and swelling on left foot wound. Increase drainage started on Friday and has become worse over the past 24 hours Associated symptoms: Fever (temp >100.4) N Chills N Sweats N Nausea N Vomiting N Diarrhea N Fatigue/general malaise N SOB N Worsening edema Y - left foot and ankle Worsening pain Y - Mahin reports to feeling a throbbing in his foot Erythema/warmth Y Increased drainage Y - Padmini having to change dressing frequently Precipitated/aggravated by: N/A Alleviating factors: N/A Consulted with: Dr Gómez. Dr Gómez is willing to stop in and see Mahin when he is here for appointment this afternoon. Plan/Intervention/Disposition: Recommended evaluation in ER N Scheduled f/u appt in wound clinic Y - today 03/07 @ 3:15 Recommended f/u appt with PCP N Other: Home care instructions/orders N Advised to call back if any of the following symptoms develop or worsen: Fever Sweats Chills Nausea, Vomiting or Diarrhea Unexplained increase in Blood Glucose levels At or around the wound site: Increased pain Swelling or edema Redness Warmth Purulent drainage Malodor Contact the [facility] with any above symptoms Friday- Friday 8:00AM-4:30PM. If weekends / holidays / evenings, please report to the Emergency Department. [phone] All questions were answered, patient verbalizes understanding and agrees with plan: Padmini is awareto seek medical attention for any worsening symptoms. Padmini agrees to bring patient this afternoonto the Wound Clinic. Reference: Lakshmi Lowe, Telephone Triage Protocol for Nurses, 5th Edition. 2016. [place], [place] Anusha Rebollar LPN documented in this encounter Plan of Treatment Upcoming Encounters Date Type Specialty Care Team Description 12/11/2021 Appointment Radiology 12/11/2021 Office Visit Orthopaedics Marion Tavera APRN [facility] DR ORTHOPAEDIC SURG [place], [place] [address] (Wo rk) 01/15/2022 Appointment Radiology Stiven Cervantes MD [facility] Pulmonary Medici nelly [place], [place] [address] (Wo rk) Scheduled Procedures Name [...] Action Plan 9:07 AM EDT) [facility] Note: Formatting of this note might be d ifferent from the original. Patient Goal: To experience less side ef fects than his past regimen of Peg and Ribavirin Timeframe to meet goal: 3 months of ther apy documented as of this encounter Visit Diagnoses Not on filedocumented in this encounter Care Teams Vending Machine Filler Relationship Specialty Start Date End Date Brian Fall APRN PCP - General Internal Medicine 04/07/[address] [place] [phone] documented as of this encounter
--- OUTSIDE RECORDS SUMMARY | 2021-11-30 08:21 | XMS_ITS | Encounter Summary ---
:1955 Author Organization [facility] Address [facility] [place] [address] Care Team Providers Name Role Phone Brian Fall APRN Primary Care Provider Reason for Visit Reason Comments Wound Check Encounter Details Date Type Department Care Team Description 03/01/2020 Office Visit Podiatry at [facility] Maia Gómez DPM Foot ulcer, left, with fat layer exposed ; [facility] George lux malleus of right foot; Drive Alcohol-induced polyneuropathy; [place] [phone] Toe amputee; [phone] Cigarette smoker Social History Tobacco Use Types Packs/Day Years Used Date Current Every Day Smoker Cigars, Cigarettes 1 42 Smokeless Tobacco: Never Used Alcohol Use Standard Drinks/Week Comments Yes 24 (1 standard drink = 0.6 oz pure alcoh ol) Sex Assigned at Date Recorded Not on file documented as of this encounter Progress Notes Maia Gómez DPM - 03/01/2020 4:30 PM EDT Images from the original note were not included. [facility] Note Name: Mahin Ramos Age:64 y.o. MR#: [id number] Date of Service: 03/01/2020 SUBJECTIVE: Mahin Ramos is a 64 y.o. male with history of hepatitis C, cirrhosis, avascular necrosis, neuropathic ulcerations of lower extremities, gout, partial foot amputation, COPD, tobacco use, peripheral neuropathy secondary to alcohol use disorder, and hypertension who returns to the clinic to day for follow-up of bilateral foot ulcerations. Patient relates having recent right foot x-ray. Relates right great toe ulceration has closed the redness continued to persist. Relates regular dressingchanges on both feet. Relates following up in wound care center regularly. Denies any fevers, chills, or other constitutional symptoms today. Denies any cough, odors, or other interval changes. No other pedal complaints. Patient Active Problem List Diagnosis Code ??? [...] right foot with fat layer exposed L97.512 Allergies Allergen Reactions ??? Morphine Other (See [...] file Gets together: Not on file Attends rastafari service: Not on file Active member of [...] Social History Narrative [place] 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 Pt has been exposed to [...] on file prior to visit. ROS: MSK: +partial foot amputation Skin: +ulcers + redness The remainder of 10 ROS were reviewed and negative. OBJECTIVE: Temp: [36.4 ??C (97.6 ??F)] Heart Rate: [50] Resp: -- BP: (149)/(81) SpO2: [95 %] Heart Rate from SpO2: -- RR:14 GEN: Patient is in no acute distress. DERM: Skin dry and atrophic with right plantar ulceration well epithelialized. Left plantar ulceration probes to bone and measures approximately 0.7 x 0.7 x 0.5 centimeter, upon debridement fibrogranular base. Slight erythema noted to dorsal aspect of right hallux at site of previous ulceration. Nailswell trimmed, dystrophic, with no signs of acute infection. VASC: Dorsalis pedis and posterior tibial pulses palpable but diminished bilaterally. Capillary refill 3 seconds. + Color changes. No rest pain. No calf pain. Localized edema noted to right hallux. NEURO: Sharp/dull diminished. Protective sensation diminished to forefoot. MSK: No tenderness on exam secondary to neuropathy. Status post partial amputation left foot. Flexion contracture of the right hallux consistent with hallux malleus deformity. ?? DIAGNOSTICS: EXAMINATION: MRI FOOT WO CONTRAST [...] MR would be more sensitive imaging modality. EXAMINATION: XR FOOT MIN 3 VIEWS RIGHT (GENERIC) 02/23/2020 ?? CLINICAL HISTORY: Right hallux ulcer, question infection/osteo ? TECHNIQUE: 3 views RIGHT foot ?? COMPARISON: 11/25/2016 ?? FINDINGS: No acute fracture or dislocation. There [...] interphalangeal joint. Recommend MRI for further evaluation. 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 I personally reviewed patient's recent right foot radiographs and discussed findings with patient. Discussed concern for osteomyelitis. Ordered right forefoot MRI. Discussed importance of ruling out osteomyelitis versus arthropathy. Recommended MRI for left forefoot given probe to bone today. Continue with wound care for now and monitoring for any infection. Patient has custom shoes from [employer], currently to hold off until ulcerations have fully healed. Continue with postop shoes for now. CRP, sed rate, CBC pending prior to next visit. Discussed with patient if MRI is positive for osteomyelitis may need bone biopsy and we will discuss that further next visit. Advised patient to seek part medical care if any worsening. Discussed he is at high risk due to skin breakdown, sensory loss, tobacco use. Answered all questions. Patient verbalized understanding of all instructions FOLLOW UP: Following MRI for evaluation or sooner if any concerns arise If you develop signs/symptoms of infection which may include the following: Fever Sweats Chills Nausea, Vomiting or Diarrhea General malaise Spiking Blood Glucose levels, unprovoked On the feet: Increased pain Swelling or edema Redness Warmth Pus Malodor Contact directly with any above symptoms Friday-Friday 8:00AM-4:00PM. If weekends/holidays/evenings,please report to the Emergency Department. Maia Gómez DPM Dance Costume Designer, [facility] documented in this encounter Plan of Treatment Upcoming Encounters Date Type Specialty Care Team Description 12/11/2021 Appointment Radiology 12/11/2021 Office Visit Orthopaedics Marion Tavera APRN [facility] ORTHOPAEDIC SURG [place], [place] [address] (Wo rk) 01/15/2022 Appointment Radiology Stiven Cervantes MD [facility] Pulmonary Medici nelly [place], [place] [address] (Wo rk) Scheduled Procedures Name [...] Plan 9:07 AM EDT) [facility] Note: Formatting of this note might be d ifferent from the original. Patient Goal: To experience less side ef fects than his past regimen of Peg and Ribavirin Timeframe to meet goal: 3 months of ther apy documented as of this encounter Visit Diagnoses Diagnosis Foot ulcer, left, with fat layer exposed Hallux malleus of right foot Alcohol-induced polyneuropathy Alcoholic polyneuropathy Toe amputee Cigarette smoker Tobacco use disorder documented in this encounter Care Teams Forensic Examiner Relationship Specialty Start Date End Date Brian Fall APRN PCP - General Internal Medicine 04/07/[address] [place] [phone] documented as of this encounter
--- OUTSIDE RECORDS SUMMARY | 2021-11-30 08:21 | XMS_ITS | Encounter Summary ---
:1955 Author Organization [facility] [place] [address] Care Team Providers Name Role Phone Brian Fall APRN Primary Care Provider Reason for Referral Diagnostic Test (Routine) - Closed Specialty Diagnoses / Procedures Referred By Contact Refer red To Contact Radiology Diagnoses Foot ulcer, left, with fat layer exposed Alcohol-induced polyneuropathy Maia Gómez DPM [facility] Rad Mri Procedures [place] [address] [place] [address] Phone: Referral ID Status Reason Start Date Expiration Date Visits V isits Requested Authorized [id number] Closed Specialty 11/23/2019 05/25/2021 1 1 Service Requested Reason for Visit Diagnostic Test (Routine) - Closed Specialty Diagnoses / Procedures Referred By Contact Refer red To Contact Radiology Diagnoses Foot ulcer, left, with fat layer exposed Alcohol-induced polyneuropathy Maia Gómez DPM [facility] Rad Mri Procedures [place] [address] [place] [address] Phone: Referral ID Status Reason Start Date Expiration Date Visits V isits Requested Authorized [id number] Closed Specialty 11/23/2019 05/25/2021 1 1 Service Requested Encounter Details Date Type Department Care Team Description 12/15/2019 Hospital Encounter MRI at [facility] Maia Gómez, Foot ulcer, left, with fat l ngozi exposed; [facility] DPM Alcohol-induced polyneuropathy [place] [address] [place], [place] [phone] Social History Tobacco Use Types Packs/Day Years [...] by 0 08/21/2012 (THERAGRAN) tablet mouth daily. QUEtiapine (SEROquel) take 1 tablet by 0 08/09/19 20 11/18/2021 25 mg Tablet mouth twice a day if needed gabapentin (NEURONTIN) take 2 tablets by 0 201903/14/2020 600 mg Tablet mouth three times a day cephALEXin (Keflex) 500 Take 1 capsule by 14 capsule 0 12/1412/22/2019 mg CapsuleIndications: mouth 2 times daily Cellulitis of leg, for 7 days. right ondansetron ODT Take 1 tablet by 90 tablet 1 10/01/201907/2019 (Zofran-ODT) 4 mg mouth every 8 hours. Tablet, Rapid Dissolve donepezil (ARICEPT) 10 Take 1 tablet by 30 tablet 11 019 12/24/2019 mg Tablet mouth nightly. citalopram (CELEXA) 20 Take 20 mg [...] needed. acetaminophen (TYLENOL) Take 1 tablet by 0 201503/01/2020 500 mg Tablet mouth every 8 hours. DULERA 100-5 inhale 2 puffs by 0 11/07/201511/19 mcg/actuation HFA mouth prn Aerosol Inhaler gabapentin (NEURONTIN) Take 2 tablets by 0 201403/01/2020 600 mg Tablet mouth 3 times daily. documented as of this encounter Plan of Treatment Upcoming Encounters Date Type Specialty Care Team Description 12/11/2021 Appointment Radiology 12/11/2021 Office Visit Orthopaedics Marion Tavera APRN [facility] ORTHOPAEDIC SURG [place], [place] [address] (Wo rk) 01/15/2022 Appointment Radiology Stiven Cervantes MD [facility] Pulmonary Medici [place], [place] [address] (Wo rk) Scheduled Procedures Name [...] No Ryan, Compliance and Facing (07/31/2016 Julia Alvin, Understanding Action Plan 9:07 AM EDT) [facility] Note: Formatting of this note might be d ifferent from the original. Patient Goal: To experience less side ef fects than his past regimen of Peg and Ribavirin Timeframe to meet goal: 3 months of ther apy documented as of this encounter Procedures Procedure Name Priority Date/Time Associated Diagnosis Comme nts MRI FOOT LEFT WO Routine 12/15/2019 3:00 PM Foot ulcer, left, with Results for this CONTRAST EDT fat layer expose d procedure are in Alcohol-induced the results polyneuropathy section. documented in this encounter Results MRI Foot wo Contrast [...] number below. Electronically signed by: Gordon Monsivais [facility] ([phone]), at 12/15/2019 5:43 PM Maia Gómez DPM IMG MRI ORDERABLES documented in this encounter Visit Diagnoses Diagnosis Foot ulcer, left, with fat layer exposed Alcohol-induced polyneuropathy Alcoholic polyneuropathy documented in this encounter Care Teams Desk Editor Relationship Specialty Start Date End Date Brian Fall APRN PCP - General Internal Medicine 04/07/[address] [place] [phone] documented as of this encounter
--- OUTSIDE RECORDS SUMMARY | 2021-11-30 08:21 | XMS_ITS | Encounter Summary ---
:1955 Author Organization [facility] [place] [address] Care Team Providers Name Role Phone Brian Fall APRN Primary Care Provider Encounter Details Date Type Department Care Team Description 01/21/2020 Office Visit Wound Care at [facility], Neuro pathic ulcer of foot, right, with fat layer exposed; [facility]ENT Neuropath ic ulcer of foot, left, with fat layer exposed; [facility] Neuropathic ulcer of toe of right foot [place] [address] Social History Tobacco Use Types Packs/Day Years Used Date Current Every Day Smoker Cigars, Cigarettes 1 42 Smokeless Tobacco: Never Used Alcohol Use Standard Drinks/Week Comments Yes 24 (1 standard drink = 0.6 oz pure alcoh ol) Sex Assigned at Date Recorded Not on file documented as of this encounter Last Filed Vital Signs Vital Sign Reading Time Taken Comments Blood Pressure 187/83 01/21/2020 4:09 PM EDT Pulse 77 01/21/2020 4:09 PM EDT Temperature 36.4 ??C (97.6 ??F) 01/21/2020 4:09 PM EDT Respiratory Rate 20 01/21/2020 4:09 PM EDT Oxygen Saturation 98% 01/21/2020 4:09 PM EDT Inhaled Oxygen Concentration - - Weight - - Height - - Body Mass Index - - documented in this encounter Progress Notes Radha Salazar RN - 01/21/2020 4:45 PM EDT Images from the original [...] hyperlipidemia. He has custom made shoes from [employer], he received in 09/2019. ABIs 10/25/19: RIGHT: [...] prior to procedure? no Objective: Vitals: BP 187/83 Pulse 77 Temp 36.4 ??C (97.6 ??F) (Oral) Resp 20 SpO2 98% Recheck was 181/52. Patient denies being symptomatic. His has a BP cuff at home and will continue to monitor his BP tonight. If it remains elevated OR if patient feels unwell, they will go to their local urgent care or ED. Dressings were removed. There was small amount of serosanguinous drainage, although patient had justtaken a shower and changed his dressings. Malodor no Erythema no Pulses: Dorsalis Pedis: Right:palpable Left: palpable Posterior Tibia: Right: palpable Left: palpable Wound location Measurement 01/21/2020 Wound Bed Periwound skin Right anterior lower leg No open areas 100% red, moist tissue Mild erythema with no increased warmthor tenderness. Left Plantar ?? 0.7 cm x 0.7 cm x 0.2 cm 100% smooth pink non-granulating 100% white-yellow tissue Right Plantar??(5th MTH) 0.3 cm x 0.5 cm x 0.1 cm 100% red, moist tissue [place], dry and intact Right hallux (dorsal) 0.3 cm x 0.2 cm x <0.1 cm 100% pink, moist non-granulating tissue [place], dry, peeling ?? PHOTO Left Plantar Right Plantar Right Hallux Left Dorsal Foot Treatment: Analgesia: none administered prior to debridement [] Order entered and documented on JUL Conservative Sharp Debridement: removing devitalized tissue using a #15 blade, a curette and Iris scissors removing less than 20 cm sq down to and including subcutaneous tissue to reveal healthier tissue. Curette only on the right hallux. Bleeding: Yes; small amount controlled with Normal [...] offloader shoe on the left lower extremity. The patient's own compression stockings were applied to the bilateral lower extremities. There appears to be an area of pressure from the shoe strap on the left dorsal foot. I applied a piece of Mepilex non-bordered foam over the areas to provide cushioning and protection. Pain Reassessment post treatment (0-10): 0 Assessment: Mahin Ramos is a 64 y.o. 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 There are no signs or symptoms of infection noted on examination today. The erythema of the right hallux has decreased. The left and right plantar foot wounds remain stable. We will continue thesame treatment regimen at this time. The patient's is assisting him with wound care. He continues to wear the forefoot offloading shoe on the left foot and a hexagon offloading shoe on the right foot. He does have some pitting edema in the bilateral feet and it appears that there is an area of irritation from the strap of the forefoot offloading shoe on the left dorsal foot. We applied a piece of Mepilex non-bordered foam over the area to provide protection. He reports that most of the time he is at home sitting and does not have any shoes on. I instructed the patient to elevate his lower extremities frequently to help manage the edema. He has purchased his own compression stockings, which were applied to the bilateral lower extremities today. He will follow up here at the [facility] in one week or sooner if he has any concerns. We reviewed signs and symptoms of infection and when to seek medicaltreatment. The patient verbalized understanding and agreement with the plan of care and will contactus with any questions or concerns. Wound(s) currently stalled Barriers to healing: Comorbidities Plan: -Continue with local wound care. Follow [...] Beef, chicken, fish Beans, Lentils, peanut butter Haitian and regular yogurt Cheese, eggs ?? Boost, Ensure shakes Protein powder in a smoothie of your choice ?? Should here from our check processing clerk for follow up appointment and scheduling with [facility] ?? Foot Care ?? 1. DO NOT [...] taken care of by your physician or director script. 6. Avoid using any chemical or strong antiseptic solutions on your feet. Iodine, salicylic acid, corn/callus removers may burn the skin. Elizabeth Tanner LPN - 01/21/2020 4:45 PM EDT S order #[id number] for wound care supplies submitted 01/24/20. documented in this encounter Plan of Treatment Upcoming Encounters Date Type Specialty Care Team Description 12/11/2021 Appointment Radiology 12/11/2021 Office Visit Orthopaedics Marion Tavera APRN [facility] ORTHOPAEDIC SURG [place], [place] [address] (Wo rk) 01/15/2022 Appointment Radiology Stiven Cervantes MD [facility] Pulmonary Medici [place], [place] [address] (Wo rk) Scheduled Procedures Name [...] exposed documented in this encounter Care Teams Printing Plate Maker Relationship Specialty Start Date End Date Brian Fall APRN PCP - General Internal Medicine 04/07/[address] [place] [phone] documented as of this encounter
--- OUTSIDE RECORDS SUMMARY | 2021-11-30 08:21 | XMS_ITS | Encounter Summary ---
:1955 [place] [address] Care Team Providers Name Role Phone Brian Fall APRN Primary Care Provider Encounter Details Date Type Department Care Team Description 10/25/2019 Office Visit Wound Care at Niki Valverde, [place] r[place] ulcer of plantar surface of left midfoot with fat layer exposed; [facility] Chronic foot ulcer, right, with fat laye r exposed [facility] [place] [phone] Social History Tobacco Use Types Packs/Day Years Used Date Current Every Day Smoker Cigars, Cigarettes 1 42 Smokeless Tobacco: Never Used Alcohol Use Standard Drinks/Week Comments Yes 24 (1 standard drink = 0.6 oz pure alcoh ol) Sex Assigned at Date Recorded Not on file documented as of this encounter Progress Notes Niki Stockton APRN - 10/25/2019 4:00 PM EDT Images from the original note were not included. [facility] Follow up Note Mahin Ramos presents for follow up of bilateral foot ulcers. HPI from previous visit: Mahin Ramos is [...] has not been using a specific dressings. He has custom made shoes from [employer], he received in 09/2019. The medical history and recent labs were reviewed prior to the patient's appointment. Home Care: none Patient Active Problem List Diagnosis Code [...] shoulder M25.512 ??? SDH (subdural hematoma) S06.5X9A Social: Lives with of 45 years. Diagnostics: [facility]: 10/25/19 Interpretation: ?? RIGHT: No significant lower extremity arterial occlusive disease identifiable at rest. Normal ankle/brachial pressure ratios and ankle Doppler waveforms. ?? LEFT: No significant lower extremity arterial occlusive disease identifiable at rest. Normal ankle/brachial pressure ratios and ankle Doppler waveforms. Right TCP02 ??34 ?? 15 cm Below Knee ?28 ?? ForeFoot ?17 Left: Chest ? 45 ?? 10 cm Above Knee ?40 ?? 15 cm Below Knee ?42 ?? ForeFoot ?26 Imaging: MRI of left foot 08/2019 Pertinent labs: 10/01/19 10/01/19: CRP: 4.20 Review Of Systems: Denies constitutional symptoms of fever, chills, sweats, fatigue. Neuro: denies GARCIA, dizziness CV: Denies CP, SOB GI: denies current N/V but does have this on a chronic intermittent basis, no diarrhea : Denies voiding issues Diet: Eating well Wound care: I try to keep wounds clean Leg fatigue, calf cramping, skin itching: denies Neuropathy: + to bilateral feet Pain: Intermittently to left plantar. Reports he has pain with walking to bilateral feet but does not have leg pain. PE: There were no vitals taken for this visit. General: pleasant, 64 year old male in NAD. Mobility: Ambulates independently. Edema: 3 + to bilateral lower legs and feet. DP, PT pulses palpable. Varicosities: + to bilateral lower legs. Hemosiderin staining: + to right lower leg Stasis dermatitis: none. Callus: Significant moist to bilateral plantar. Nails: thick, short Wound location Measurement 10/25/19 Measurement 10/13/19 (Initial) Wound Bed Exudate Periwound skin Odor Left Plantar 1.2 x 1.2 x 0.3 cm 0.8 x 0.9 x 0.4 cm circumferential undermining of 0.1-0.2 cm Pale white, macerated. Moderate serous Moist callous none Right Plantar 0.4 x 0.4 x 0.1 cm 0.6 x 0.9 x <0.1 cm [place], bleeding Moderate serous on old dressing Moist callous none Right Anterior Leg 0.7 x 0.4 x <0.1 cm Measurements (cm) Right Left Calf girth 37.5 cm 37.0 cm Ankle girth 24.0 cm 27.0 cm The following photo was taken: Left Plantar Right Plantar Wound treatment: Wound Location: Cleansed wound with NS. Analgesia: none Conservative sharp debridement of necrotic, devitalized tissue on wound bed with curette, #15 scalpel, forceps down to and including subcutaneous tissue <20 sq cm. Bleeding easily resolved with normal saline Patient tolerated treatment well. Dressing: Apply Iodosorb to bilateral plantar feet, followed by Mepilex border dressing. Assessment/ Plan: Mahin Ramos is a 64 y.o. 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 He has past medical history significant for substance abuse, osteomyelitis, minimal cognitive impairment, chronic hepatitis C, COPD, GERD, neuropathy, hyperlipidemia, HTN and gout to left great toe. He has history of left 5th toe amp due to osteo two years ago. He has recent MRI of left 4th toe showing alteration in bone marrow consistent with osteomyelitis. He was on 42 days of Linezolid which he completed on 10/12/19. He has no local signs of infection. DONTAE's today with no LEAD but TcP02 decreased to forefoot. Significant callous buildup despite use of custom made shoes. Dr. Gómez saw patient today and recommend repeat x-ray and informatory lab work. Will plan for follow up in one week for wound care. Will continue Iodosorb for antimicrobial,debridment and exudate management, followed by Mepilex borders for moist wound healing. Verbal and written wound care instructions were provided. He/she will call with any questions or concerns. Education: Discussed high protein diet Discussed commitment to lifelong compression therapy by wearing stockings Smoking cessation Avoid mechanical trauma to legs/Feet Contact health provider at earliest signs of skin breakdown, new or worsening edema Exercise and engage in physical activity Follow up: Weekly Instructions: Iodosorb Nursing to change dressing q Friday, Friday and Friday and as needed for dressing with 50% or greater strike though drainage. 1. Cleanse wound with dermal wound cleanser and gauze. 2. Apply skin prep to periwound skin. 3. Apply 1/8 - 1/4 inch thickness of Iodosorb gel to wound bed. 4. Cover with a Mepilex foam dressing. Please report to the Emergency Department if you develop signs/symptoms of infection, this may include the following: Fever Sweats Chills Nausea, Vomiting or Diarrhea: general malaise Spiking Blood Glucose levels, unprovoked Around the wound site: Redness Warmth Purulent drainage Malodor Try to eat 5-6 servings of following foods: High Protein foods: Beef, chicken, fish Beans, Lentils, peanut butter Turkish and regular yogurt Cheese, eggs Boost, Ensure shakes Protein powder in a smoothie of your choice How to use Medigrip 1. Cut Medigrip to twice the length required for limb, allowing an extra 2-3cm for overlap. 2. Pull Medigrip onto limb like a stocking. 3. Double Medigrip back over limb. Ensure upper edge is taken 2-3cm higher up the limb than the ?rst. 4. Check to make sure that there is no bunching or creases in the tubigrip that may cause pressure injuries. Apply in the morning and take off at night. Check your skin once daily for any pressure related areas. Should here from our surgical scheduler for follow up appointment and scheduling with [facility] Foot Care 1. DO NOT SMOKE! It decreases the [...] taken care of by your physician or boat builder. 6. Avoid using any chemical or strong antiseptic solutions on your feet. Iodine, salicylic acid, corn/callus removers may burn the skin. Cc: Brian Fall, REFERRAL CLERK [address] [place] [address] PCP: Brian Fall APRN documented in this encounter Plan of Treatment Upcoming Encounters Date Type Specialty Care Team Description 12/11/2021 Appointment Radiology 12/11/2021 Office Visit Orthopaedics Marion Tavera APRN [facility] ORTHOPAEDIC SURG [place], [place] [address] (Wo rk) 01/15/2022 Appointment Radiology Stiven Cervantes MD [facility] Pulmonary Medici [place], [place] [address] (Wo rk) Scheduled Procedures Name [...] as of this encounter Visit Diagnoses Diagnosis Chronic ulcer of plantar surface of left midfoot with fat layer exposed Chronic foot ulcer, right, with fat laye r exposed documented in this encounter Care Teams Sewing Machine Operator Zipper Relationship Specialty Start Date End Date Brian Fall APRN PCP - General Internal Medicine 04/07/[address] [place] [phone] documented as of this encounter
--- OUTSIDE RECORDS SUMMARY | 2021-11-30 08:21 | XMS_ITS | Encounter Summary ---
:1955 [place] [address] Care Team Providers Name Role Phone Brian Fall APRN Primary Care Provider Reason for Visit Reason Comments Wound Check Encounter Details Date Type Department Care Team Description 02/23/2020 Office Visit Wound Care at [facility] Ne uropathic ulcer of foot, right, with fat layer exposed; [facility] LISA Neuropathic ulcer of foot, left, with fa t layer exposed; [facility] Traumatic open wound of righ t lower leg, initial encounter [facility] [place] WOUND [place] [phone] Social History Tobacco Use Types Packs/Day Years Used Date Current Every Day Smoker Cigars, Cigarettes 1 42 Smokeless Tobacco: Never Used Alcohol Use Standard Drinks/Week Comments Yes 24 (1 standard drink = 0.6 oz pure alcoh ol) Sex Assigned at Date Recorded Not on file documented as of this encounter Last Filed Vital Signs Vital Sign Reading Time Taken Comments Blood Pressure 197/89 02/23/2020 4:18 PM EDT Pulse 54 02/23/2020 4:18 PM EDT Temperature 36.6 ??C (97.8 ??F) 02/23/2020 4:18 PM EDT Respiratory Rate - - Oxygen Saturation 93% 02/23/2020 4:18 PM EDT Inhaled Oxygen Concentration - - Weight - - Height - - Body Mass Index - - documented in this encounter Patient Instructions Patient InstructionsZeyad Franklin APRN - 02/23/2020 4:45 PM EDT Left Plantar Change dressing every [...] with skin prep. ?? Right bottom of foot/right lower Change dressing every 2 days or sooner [...] Beef, chicken, fish Beans, Lentils, peanut butter Turkmen and regular yogurt Cheese, eggs ?? Boost, [...] taken care of by your physician or ciso. ?? Avoid using any chemical or strong antiseptic solutions on your feet. Iodine, salicylic acid, corn/callus removers may burn the skin. documented in this encounter Progress Notes Zeyad Franklin APRN - 02/23/2020 4:45 PM EDT Images from the original note were not included. [facility] Progress Note CC: Mahin [...] hyperlipidemia. He has custom made shoes from [employer], he received in 09/2019. ABIs 10/25/19: RIGHT: [...] toe swelling and discoloration resolved. Objective: BP 197/89 (BP Location (NBP): Right arm, Patient Position: Sitting, BP Cuff Sizes: Adult (25-34 cm)) Pulse 54 Temp 36.6 ??C (97.8 ??F) (Oral) SpO2 93% General: pleasant, 64 year old male in NAD. Arrives with . Mobility: wheelchair for long distance. Edema:1 + to bilateral feet. DP, PT pulses palpable bilaterally. Varicosities: + to bilateral feet. Hemosiderin staining: none Stasis dermatitis: + to bilateral dorsal feet Callus: significant to bilateral plantars. Bilateral feet warm to touch. Wound location Measurement 02/23/20 Measurement 02/09/20 Measurement 01/26/20 Measurement 01/21/2020 Wound Bed Periwound skin Exudate/Odor Left Plantar ?? 0.7 x 1.0 x 0.5 cm 0.9 x 0.8 x 0.4 cm 0.6 x 0.6 x 0.2 cm 0.7 cm x 0.7 cm x 0.2 cm 75% smooth pinknon-granulating 25% dark [place] 100% pink Moderate serous/none Right Plantar??(5th MTH) No open area No opening. 0.2 x 0.2 x 0.1 cm 0.3 cm x 0.5 cm x 0.1 cm 100% epithelial with intradermal bleeding [place], dry and intact Minimal serous Right hallux (dorsal) No open areas No open area. 0.2 x 0.1 x 0.1 cm 0.3 cm x 0.2 cm x <0.1 cm 100% epithilial [place], dry, peeling Moderate serous/none Right Anterior Lower leg 0.6 x 0.4 x <0.1 cm x x x 100% pink [place], dry Minimal serous Right calf: 37.0 cm Right Ankle: 27.0 cm Left calf: 39.0 cm Left Ankle: 29.0 cm ?? PHOTO Left Plantar Right plantar Right Hallux Right anterior lower leg Treatment: Wound Location: bilateral plantars, right hallux, right anterior lower leg Cleansed wound with normal saline and gauze. Lidocaine: None. Conservative Sharp Debridement: removed devitalized tissue using a #15 blade and curet, less than 20cm sq down to and including subcutaneous tissue [...] residual fifth metatarsal. Xray of right foot today showed no fx of 2nd/3rd toe and swelling/purple discoloration resolved, but shoes findings concerning for osteomyelitis centered at the first interphalangeal joint. Recommend MRI for further evaluation but right halluxulcer remains closed. The right plantar ulcer remains Healed with slight pressure changes noted today, the left is slightly deeper but improvement in maceration. Will continue Aquacel AG to left plantar [...] to continue to elevate his lower extremities frequentlyto help manage the edema. He will follow up here at the [facility] in one week or sooner if he has any concerns. He has previously ordered custom shoes that he will resume wearing once wounds heal. We reviewed signs and symptoms of infection and when to seek medical treatment. The patient verbalized understanding and agreement with the plan of care and will contact us with any questions or concerns. Consider bone biopsy of left plantar if worsens or does not improve. Discuss xray results with Dr. Gómez at next week to determine if MRI is needed with no open ulceration or signs of infection. Will repeat CRP, Sed rate, CBC prior [...] Beef, chicken, fish Beans, Lentils, peanut butter Turkmen and regular yogurt Cheese, eggs ?? Boost, [...] taken care of by your physician or ciso. ?? Avoid using any chemical or strong antiseptic solutions on your feet. Iodine, salicylic acid, corn/callus removers may burn the skin. ?? documented in this encounter Miscellaneous Notes Addendum Note - Zeyad Franklin APRN - 02/23/2020 4:45 PM EDT Addended by: ZEYAD FRANKLIN on: 02/24/2020 08:27 AM Modules accepted: Orders documented in this encounter Plan of Treatment Upcoming Encounters Date Type Specialty Care Team Description 12/11/2021 Appointment Radiology 12/11/2021 Office Visit Orthopaedics Marion Tavera APRN [facility] ORTHOPAEDIC SURG [place], [place] [address] (Wo rk) 01/15/2022 Appointment Radiology Stiven Cervantes MD [facility] er Pulmonary Tim [place], [place] [address] (Wo rk) Scheduled Procedures Name Priority Associated [...] Understanding Action Plan 9:07 AM EDT) [facility] Note: Formatting of this note might be d ifferent from the original. Patient Goal: To experience less side ef fects than his past regimen of Peg and Ribavirin Timeframe to meet goal: 3 months of ther apy documented as of this encounter Results (ABNORMAL) Sedimentation rate (03/07/2020 4:20 PM EDT) athologist Signature Sed Rate 74 (H) 2 - 37 [facility] mm/hr [facility] Comment: Effective April 21, 2019 [...] EDT Resulting Agency Comment Spec In Lab Zeyad Franklin SAP PORTAL DEVELOPER HEMATOLOGY ORDERABLES Performing Organization Address City/State/[place] [address] (ABNORMAL) CRP, acute inflammation (03/07/2020 4:20 PM EDT) athologist Signature CRP 109.5 (H) <=4.9 mg/L [facility] Specimen Anatomical Collection Method Collection Time Receive d Time (Source) Location / / Volume Laterality Blood specimen 03/07/2020 4:20 PM 020 4:35 (specimen) EDT PM EDT Resulting Agency Comment Spec In Lab Zeyad Franklin SAP PORTAL DEVELOPER CHEMISTRY ORDERABLES Performing Organization Address City/State/[place] [address] documented in this encounter Visit Diagnoses Diagnosis Neuropathic ulcer of foot, right, with f at layer exposed Neuropathic ulcer of foot, left, with fa t layer exposed Traumatic open wound of right lower leg, initial encounter documented in this encounter Care Teams Sensor Technician Relationship Specialty Start Date End Date Brian Fall APRN PCP - General Internal Medicine 04/07/19 [address] [place] [address] documented as of this encounter
--- OUTSIDE RECORDS SUMMARY | 2021-11-30 08:21 | XMS_ITS | Encounter Summary ---
:1955 [place] [address] Care Team Providers Name Role Phone Brian Fall APRN Primary Care Provider Reason for Visit Reason Comments Wound Check Encounter Details Date Type Department Care Team Description 01/26/2020 Office Visit Wound Care at [facility] Ne uropathic ulcer of foot, right, with fat layer exposed; [facility] LISA Neuropathic ulcer of foot, left, with fa t layer exposed; [facility] Toe ulcer, right, limited to breakdown of skin [place] [phone] Social History Tobacco Use Types Packs/Day Years Used Date Current Every Day Smoker Cigars, Cigarettes 1 42 Smokeless Tobacco: Never Used Alcohol Use Standard Drinks/Week Comments Yes 24 (1 standard drink = 0.6 oz pure alcoh ol) Sex Assigned at Date Recorded Not on file documented as of this encounter Last Filed Vital Signs Vital Sign Reading Time Taken Comments Blood Pressure 105/63 01/26/2020 4:18 PM EDT Pulse 56 01/26/2020 4:18 PM EDT Temperature 36.5 ??C (97.7 ??F) 01/26/2020 4:18 PM EDT Respiratory Rate - - Oxygen Saturation 95% 01/26/2020 4:18 PM EDT Inhaled Oxygen Concentration - - Weight - - Height - - Body Mass Index - - documented in this encounter Patient Instructions Patient InstructionsNiki Stockton APRN - 01/26/2020 4:45 PM EDT Wound Care: Bilateral plantar and right hallux: Change dressing every 3 days or sooner for 50% or greater strike through drainage. 1. Remove old dressing. 2. Cleanser wound bed with wound cleanser or normal saline and gauze. 3. Apply skin prep to periwound skin. 4. Apply 1/8 - 1/4 inch thickness of Iodosorb gel to wound bed(s). 5. Cover wound bed(s) with Mepilex non-bordered foam and secure with medipore tape 6. Secure edges with skin prep. Metatarsal Pads to bilateral feet, keep in any shoes you wear to offload plantar ulcers, if causing pain or skin breakdown remove or adjust to new area. Try to eat 5-6 servings of following foods: High Protein foods: Beef, chicken, fish Beans, Lentils, peanut butter [place]ar[place]uan and regular yogurt Cheese, eggs Boost, Ensure shakes Protein powder in a smoothie of your choice Please report to the Emergency Department if you develop signs/symptoms of infection, this may include the following: Fever Sweats Chills Nausea, Vomiting or Diarrhea: general malaise Spiking Blood Glucose levels, unprovoked Around the wound site: Redness Warmth Purulent drainage [facility] Foot Care ?? If you have high [...] taken care of by your physician or form drafter. ?? Avoid using any chemical or strong antiseptic solutions on your feet. Iodine, salicylic acid, corn/callus removers may burn the skin. documented in this encounter Progress Notes Niki Stockton APRN - 01/26/2020 4:45 PM EDT Images from the original note were not included. [facility] Progress Note CC: [...] hyperlipidemia. He has custom made shoes from [employer], he received in 09/2019. ABIs 10/25/19: RIGHT: [...] pain to legs and feet. Objective: BP 105/63 (BP Location (NBP): Right arm, Patient Position: Sitting, BP Cuff Sizes: Adult (25-34 cm)) Pulse 56 Temp 36.5 ??C (97.7 ??F) (Oral) SpO2 95% General: pleasant, 64 year old male in NAD. Arrives with . Mobility: wheelchair for long distance. Edema:1 + to bilateral feet. DP, PT pulses palpable bilaterally. Varicosities: + to bilateral feet. Hemosiderin staining: none Stasis dermatitis: + to bilateral dorsal feet Callus: significant to bilateral plantars. Bilateral feet warm to touch. Wound location Measurement 01/26/20 Measurement 01/21/2020 Wound Bed Periwound skin Exudate/Odor Supplies Left Plantar ?? 0.6 x 0.6 x 0.2 cm 0.7 cm x 0.7 cm x 0.2 cm 100% smooth pink non-granulating 100% pink Moderate serous/none Wound photo mask cleaner/saline Gauze Non border foam Iodosorb medipore tape Right Plantar??(5th MTH) 0.2 x 0.2 x 0.1 cm 0.3 cm x 0.5 cm x 0.1 cm 100% red, moist tissue [place], dry and intact Moderate serous/none Wound photo mask cleaner/saline Gauze Non border foam Iodosorb medipore tape Right hallux (dorsal) 0.2 x 0.1 x 0.1 cm 0.3 cm x 0.2 cm x <0.1 cm 100% pink, moist non- granulating tissue [place], dry, peeling Moderate serous/none Wound photo mask cleaner/saline Gauze Non border foam Iodosorb medipore tape ?? PHOTO Left Plantar Right plantar Treatment: Wound Location: bilateral plantars Cleansed wound [...] offloader shoe on the left lower extremity. Added bilateral Met pads to shoes. The patient's own compression stockings were applied to the bilateral lower extremities. Pain Reassessment post treatment (0-10): 0 Assessment: Mahin Ramos is a 64 y.o. 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 There are no signs or symptoms of infection noted on examination today. The erythema of the right hallux has resolved and ulcer is smaller. The left and right plantar foot wounds are slightly smaller, continues to have bilateral lower extremity edema, but reports has not been elevating as much.. We will continue with Iodosorb for debridement, antimicrobial and exudate properties, followed by foam and tape for exudate and protection. . He continues to wear the forefoot offloading shoe on the left foot and a hexagon offloading shoe on the right foot will add met pads to these and slippers he wears at home on occation. Continues to have dermatitis to bilateral dorsal feet, which are dry, recommend increased moisturizer to these daily. He reports that most of the time he is at home sitting and does not have any shoes on. I instructed the patient to elevate his lower extremities frequently tohelp manage the edema. He will follow up here at the [facility] in one week or sooner if he has any concerns. We reviewed signs and symptoms of infection and when to seek medical treatment. The patient verbalized understanding and agreement with the plan of care and will contact us with any questions or concerns. Follow up with podiatry next week as well to evaluate wounds. Wound(s) currently improving Barriers to healing: Neuropathy, offloading, infection, smoking Plan: -Continue with local wound care. Follow up: Return to Wound Healing Center in approximately 1 week. Post Visit Instructions (Home Health Agency and/or patient): Wound Care: Bilateral plantar and right hallux: Change dressing every 3 days or sooner for 50% or greater strike through drainage. 1. Remove old dressing. 2. Cleanser wound bed with wound cleanser or normal saline and gauze. 3. Apply skin prep to periwound skin. 4. Apply 1/8 - 1/4 inch thickness of Iodosorb gel to wound bed(s). 5. Cover wound bed(s) with Mepilex non-bordered foam and secure with medipore tape 6. Secure edges with skin prep. Metatarsal Pads to bilateral feet, keep in any shoes you wear to offload plantar ulcers, if causing pain or skin breakdown remove or adjust to new area. Try to eat 5-6 servings of following foods: High Protein foods: Beef, chicken, fish Beans, Lentils, peanut butter Nicaraguan and regular yogurt Cheese, eggs Boost, Ensure shakes Protein powder in a smoothie of your choice Please report to the Emergency Department if you develop signs/symptoms of infection, this may include the following: Fever Sweats Chills Nausea, Vomiting or Diarrhea: general malaise Spiking Blood Glucose levels, unprovoked Around the wound site: Redness Warmth Purulent drainage Malodor Foot Care ?? If you have high [...] taken care of by your physician or form drafter. ?? Avoid using any chemical or strong antiseptic solutions on your feet. Iodine, salicylic acid, corn/callus removers may burn the skin. documented in this encounter Plan of Treatment Upcoming Encounters Date Type Specialty Care Team Description 12/11/2021 Appointment Radiology 12/11/2021 Office Visit Orthopaedics Marion Tavera APRN [facility] [address] ORTHOPAEDIC SURG [place], [place] [address] (Wo rk) 01/15/2022 Appointment Radiology Stiven Cervantes MD [facility] [address] [place], [place] [address] (Wo rk) Scheduled Procedures Name [...] skin documented in this encounter Care Teams Hotel Associate Relationship Specialty Start Date End Date Brian Fall APRN PCP - General Internal Medicine 04/07/[address] [place] [phone] documented as of this encounter
--- OUTSIDE RECORDS SUMMARY | 2021-11-30 08:21 | XMS_ITS | Encounter Summary ---
:1955 [place] [address] Care Team Providers Name Role Phone Brian Fall APRN Primary Care Provider Encounter Details Date Type Department Care Team Description 11/03/2019 Office Visit Wound Care at [facility] rondelfina ulcer of plantar surface of left midfoot with fat layer exposed; [facility] LISA Chronic foot ulcer, right, with fat laye r exposed [facility] WOUND [place] [phone] Social History Tobacco Use Types Packs/Day Years Used Date Current Every Day Smoker Cigars, Cigarettes 1 42 Smokeless Tobacco: Never Used Alcohol Use Standard Drinks/Week Comments Yes 24 (1 standard drink = 0.6 oz pure alcoh ol) Sex Assigned at Date Recorded Not on file documented as of this encounter Last Filed Vital Signs Vital Sign Reading Time Taken Comments Blood Pressure 132/78 11/03/2019 2:01 PM EDT Pulse 53 11/03/2019 2:01 PM EDT Temperature - - Respiratory Rate - - Oxygen Saturation 92% 11/03/2019 2:01 PM EDT Inhaled Oxygen Concentration - - Weight - - Height - - Body Mass Index - - documented in this encounter Patient Instructions Patient InstructionsNiki Stockton APRN - 11/03/2019 1:45 PM EDT Instructions: Iodosorb Nursing to change dressing q [...] Beef, chicken, fish Beans, Lentils, peanut butter Pashto and regular yogurt Cheese, eggs Boost, Ensure [...] pressure related areas. Should here from our classifier tender for follow up appointment and scheduling with [...] taken care of by your physician or service desk agent. 6. Avoid using any chemical or strong antiseptic solutions on your feet. Iodine, salicylic acid, corn/callus removers may burn the skin. documented in this encounter Progress Notes Niki Stockton APRN - 11/03/2019 1:45 PM EDT Images from the original note were not included. [facility] Follow up Note Mahin [...] dressings. He has custom made shoes from [employer], he received in 09/2019. The medical history and recent labs were reviewed prior to the patient's appointment. Home Care: none Social: Lives with of 45 years. Diagnostics: [...] ?26 Imaging: MRI of left foot 08/2019 Xray 10/25/19 IMPRESSION Postoperative changes of the fifth ray. No gross osseous destruction to suggest advanced osteomyelitis. If there is high clinical concern for underlying osteomyelitis, MR would be more sensitive imaging modality. Pertinent labs: Lab Results Component Value Date CRP 11.4 (H) 10/25/2019 Lab Results Component Value Date SEDRATE 32 10/25/2019 Lab Results Component Value Date WBC 12.7 (H) 10/25/2019 HGB 15.1 10/25/2019 HCT 45.4 10/25/2019 MCV 97.4 (H) 10/25/2019 PLATELET 432 (H) 10/25/2019 Lab Results Component Value Date NA 137 10/25/2019 K 3.7 10/25/2019 CL 92 (L) 10/25/2019 CO2 Not Perf 10/25/2019 BUN 6 (L) 10/25/2019 CREATININE 0.98 10/25/2019 GLUCOSE 105 10/25/2019 GLUCFASTING 81 04/07/2019 CALCIUM 10.1 10/25/2019 ESTGFR 80 10/25/2019 Review Of Systems: Denies constitutional symptoms of fever, chills, sweats, fatigue. Neuro: denies GARCIA, dizziness CV: Denies CP, SOB GI: denies current N/V but does have this on a chronic intermittent basis, no diarrhea : Denies voiding issues Diet: Eating well Wound care: Iodosorb and cover dressing. Leg fatigue, calf cramping, skin itching: denies Neuropathy: + to bilateral feet Pain: Intermittently to left plantar. Reports he has pain with walking to bilateral feet but does not have leg pain. Plan for MRE next week. PE: BP 132/78 (BP Location (NBP): Left arm, Patient Position: Sitting, BP Cuff Sizes: Large Adult (32-43cm)) Pulse 53 SpO2 92% General: pleasant, 64 year old male in NAD. Mobility: Ambulates independently. Edema: 1 + to bilateral lower legs and feet. DP, PT pulses palpable. Varicosities: + to bilateral lower legs. Hemosiderin staining: + to right lower leg Stasis dermatitis: none. Callus: Significant moist to bilateral plantar. Nails: thick, short Wound location Measurement 11/03/19 Measurement 10/25/19 Measurement 10/13/19 (Initial) Wound Bed Exudate Periwound skin Odor Left Plantar 1.0 x 1.0 x 0.3 cm 1.2 x 1.2 x 0.3 cm 0.8 x 0.9 x 0.4 cm circumferential undermining of 0.1-0.2 cm Pale white, macerated. Moderate serous Moist callous none Right Plantar (5th MTH) 0.2 x 0.3 x 0.1 cm 0.4 x 0.4 x 0.1 cm 0.6 x 0.9 x <0.1 cm [place], bleeding Moderate serous on old dressing Moist callous none Right Anterior Leg healed Healed. 0.7 x 0.4 x <0.1 cm epithelial tissue none Warm, pink none Measurements (cm) Right Left Calf girth 37.0 cm 37.0 cm Ankle girth 25.5 cm 26.5 cm The following photo was taken: Left [...] plantar feet, followed by Mepilex border dressing. Custom off blunger loader padto bilateral plantars. Assessment/ Plan: Mahin Ramos is a 64 y.o. 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 He has history of left 5th toe amp due to osteo two years ago. He has recent MRI of left 4th toe showing alteration in bone marrow consistent with osteomyelitis. He was on 42 days of Linezolid which he completed on 10/12/19. He has no local signs of infection. DONTAE's 10/2019 with no LEAD but TcP02 decreased to forefoot. Repeat xray without signs of osteo. inflammatory labs elevated but unclear if related to foot wounds or GI as foot wound are improving.He has MRE scheduled next week. Significant callous buildup despite use of custom and front off blunger loader although somewhat improved. Will plan for follow up in one week for wound care and in 2 weeks withPodiatry. Will continue Iodosorb for antimicrobial,debridment and exudate [...] engage in physical activity Follow up: Weekly or sooner with questions or concerns. Instructions: Iodosorb Nursing to change dressing q [...] Beef, chicken, fish Beans, Lentils, peanut butter Pashto and regular yogurt Cheese, eggs Boost, Ensure [...] pressure related areas. Should here from our classifier tender for follow up appointment and scheduling with [...] taken care of by your physician or service desk agent. 6. Avoid using any chemical or strong antiseptic solutions on your feet. Iodine, salicylic acid, corn/callus removers may burn the skin. Cc: Brian Fall APRN [address] [place] [address] PCP: Brian Fall APRN documented in this encounter Plan of Treatment Upcoming Encounters Date Type Specialty Care Team Description 12/11/2021 Appointment Radiology 12/11/2021 Office Visit Orthopaedics Marion Tavera APRN [facility] [place] [address] (Wo rk) 01/15/2022 Appointment Radiology Stiven Cervantes MD [facility] er Pulmonary Medici nelly [place], [place] [address] (Wo rk) Scheduled Procedures Name [...] laye r exposed documented in this encounter Administered Medications Inactive Administered Medications - up to 3 most recent administrations Medication Order MAR Action Action Date Dose Rate Site lidocaine (XYLOCAINE) 2 % jelly Given 11/03/2019 2:30 PM EDT Topical (Top), ONCE, On Fri11/03/19 at 1530, 1 dose documented in this encounter Care Teams Erp Implementation Consultant Relationship Specialty Start Date End Date Brian Fall APRN PCP - General Internal Medicine 04/07/[address] [place] [phone] documented as of this encounter
--- OUTSIDE RECORDS SUMMARY | 2021-11-30 08:21 | XMS_ITS | Encounter Summary ---
:1955 Author Organization [facility] [place] [address] Care Team Providers Name Role Phone Brian Fall APRN Primary Care Provider Encounter Details Date Type Department Care Team Description 10/25/2019 Laboratory Appointment Lab 3L Lloyd Montano Foot ulcer, left, with fat layer exposed; [facility] [place] [id number] Social History Tobacco Use Types Packs/Day Years [...] 12/11/2021 Office Visit Orthopaedics Marion Tavera APRN [facility] DR ORTHOPAEDIC SURG [place], [place] 0[address] (Wo rk) 01/15/2022 Appointment Radiology Stiven Cervantes MD [facility] Pulmonary Medici [place], [place] [address] (Wo rk) Scheduled Procedures Name [...] Esquivel, Understanding Action Plan 9:07 AM EDT) [facility] Note: Formatting of this note might be d ifferent from the original. Patient Goal: To experience less side ef fects than his past regimen of Peg and Ribavirin Timeframe to meet goal: 3 months of ther apy documented as of this encounter Procedures Procedure Name Priority Date/Time Associated Comments Diagnosis HC VENIPUNCTURE Routine 10/25/2019 4:29 PM Foot ulcer, left, R esults for this EDT with fat layer procedure are in exposed the results section. HEMOGRAM Routine 10/25/2019 4:29 PM Chronic vomiting Resul ts for this EDT procedure are i n the results section. DIFFERENTIAL, Routine 10/25/2019 4:29 PM Chronic vomiting Resu lts for this AUTOMATED EDT procedure are i n the results section. LAVENDER TUBE HOLD Routine 10/25/2019 4:29 PM Res ults for this EDT procedure are i n the results section. HC ESR-SEDIMENTATION Routine 10/25/2019 4:29 PM Foot ulcer, le ft, Results for this RATE, BLOOD EDT with fat layer procedure are in exposed the results section. HC CBC,PLT & AUTO DIFF Routine 10/25/2019 4:29 PM Chronic vomi ting EDT HC ALBUMIN, SERUM Routine 10/25/2019 4:29 PM Foot ulcer, left, Results for this EDT with fat layer procedure are in exposed the results section. COMPREHENSIVE Routine 10/25/2019 4:29 PM Chronic vomiting Resu lts for this METABOLIC PANEL EDT procedure ar e in (NON-FASTING) the results section. documented in this encounter Results Lavender Tube HOLD (10/25/2019 4:29 PM EDT) [facility] gist Method Time Signature Lavender Hold Sample in [facility] lab. [facility] LABORATORY Specimen Anatomical Collection Method Collection Time Receive d Time (Source) Location / / Volume Laterality Blood specimen No Charge / 10/25/2019 4:29 PM 020 4:47 (specimen) Unknown EDT PM EDT L Milan Dunne MD HEMATOLOGY ORDERABLES Performing Organization Address City/State/[place] [address] (ABNORMAL) Differential, Automated (10/25/2019 4:29 PM EDT) [facility] Method Time Signature Neutrophils % 71.8 % [facility] LABORATORY Neutr Abs (ANC) 9.14 (H) 1.70 - [facility] 6.10 [facility] x10(3)/[facility] LABORATORY Lymphocytes % 15.6 % [facility] LABORATORY Lymphocytes Abs 2.0 0.9 - 3.2 [facility] x10(3)/[facility] LABORATORY Monocytes % 8.6 % [facility] LABORATORY Monocyte Abs 1.1 (H) 0.3 - 0.9 [facility] x10(3)/[facility] LABORATORY Eosinophils % 2.7 % [facility] LABORATORY Eosinophils Abs 0.3 0.0 - 0.4 [facility] x10(3)/[facility] LABORATORY Basophils % 0.6 % [facility] LABORATORY Basophils Abs 0.1 0.0 - 0.1 [facility] x10(3)/[facility] LABORATORY Immature Gran % 0.70 % [facility] LABORATORY Comment: Immature granulocytes(IG's)percentage an d absolute count will include metamyelocytes, myelocytes, and promyelo cytes. Blood smears from CBCs yielding IG's will be scanned manually for concor dance. If this scan disagrees with the automated IG or if promyelocytes are not ed, a manual differential will be performed. Shannan Gran Abs 0.09 (H) 0.00 - 0.04 x10(3)/[facility] LABORATORY Specimen Anatomical Collection Method Collection Time Receive d Time (Source) Location / / Volume Laterality Blood specimen 10/25/2019 4:29 PM 020 5:23 (specimen) EDT PM EDT Resulting Agency Comment Spec In Lab L Milan Dunne MD HEMATOLOGY ORDERABLES Performing Organization Address City/State/[place] [address] (ABNORMAL) Hemogram (10/25/2019 4:29 PM EDT) Analysis Performed At Patho logist Time Signature WBC 12.7 (H) 4.0 - 9.5 [facility] x10(3)/[facility] LABORATORY RBC 4.66 4.58 - [place] EDGAR 5.54 [facility] x10(6)/[facility] LABORATORY Hemoglobin 15.1 13.7 - [facility] 16.5 gm/dL [facility] LABOR[facility]ORY Hematocrit 45.4 40.5 - [facility] 48.5 % [facility] LABORATORY MCV 97.4 (H) 82.9 - [facility] 93.1 [facility] LABORATORY MCH 32.4 (H) 27.5 - [facility] 32.1 pg [facility] LAB[facility]ORY MCHC 33.3 32.0 - [facility] 35.7 gm/dL [facility] LABORATORY Platelets 432 (H) 145 - 357 [facility] x10(3)/[facility] LABORATORY RDWSD 60.5 (H) 36.0 - [facility] 45.0 [facility] LABORATORY RDWCV 17.0 (H) 11.4 - [facility] 13.8 % [facility] LABORATORY MPV 9.4 7.6 - 12.9 [facility] LABORATORY nRBC % Auto 0.0 % [facility] LABORATORY nRBC Abs Auto 0.000 0.000 - [facility] 0.000 [facility] x10(3)/[facility] LABORATORY Specimen Anatomical Collection Method Collection Time Receive d Time (Source) Location / / Volume Laterality Blood specimen 10/25/2019 4:29 PM 020 5:23 (specimen) EDT PM EDT Resulting Agency Comment Spec In Lab L Milan Dunne MD HEMATOLOGY ORDERABLES Performing Organization Address City/State/ZIP Code Ph[place] [facility] [place] [address] (ABNORMAL) Comprehensive metabolic panel (non-fasting) (10/25/2019 4:29 PM EDT) P athologist Signature Glucose Lvl 105 65 - 199 [facility] mg/dL [facility] LABORATORY Comment: Diabetes: >=200 mg/dL plus symp toms BUN 6 (L) 10 - 20 mg/dL [facility] LABORATORY Creatinine 0.98 0.80 - 1.50 mg/dL [facility] LABORATORY Sodium 137 135 - 145 mmol/L [facility] [...] if there are any qu estions. Chloride 92 (L) 98 - 107 mmol/L [facility] LABORATORY CO2 Not Perf [facility] LABORATORY Comment: Add-on request. Sample too old to perform test. Anion Gap Unable to Calculate 5 - 15 mmol/L [facility] LABORATORY Calcium 10.1 8.5 - 10.5 mg/dL [facility] LABORATORY Total Protein 7.8 6.1 - 8.0 gm/dL [facility] LABORATORY Albumin 4.5 3.2 - 5.2 gm/dL [facility] LABORATORY AST 17 0 - 39 unit/L [facility] LABORATORY ALT 13 0 - 55 unit/L [facility] LABORATORY Alk Phos 114 40 - 130 unit/L [facility] LABORATORY Total Bilirubin 0.6 0.2 - 1.3 mg/dL [facility] LABORATORY Estimated GFR 80 >=60 mL/min/1.73 m?? [facility] LAB[facility] Comment: The eGFR was calculated using the CKD-EP I equation. As with all creatinine based estimates of kidney function, eGFR values calculated with the CKD-EPI equation are not accurate in patients wi th acute kidney failure, extremes of body mass or the acutely ill. http://[employer]/DHMCnkf eGFR 93 >=60 mL/min/1.73 m?? [facility] LABORATORY Comment: The eGFR was calculated using the CKD-EP I equation. As with all creatinine based estimates of kidney function, eGFR values calculated with the CKD-EPI equation are not accurate in patients wi th acute kidney failure, extremes of body mass or the acutely ill. http://[employer]/DHMCnkf Specimen Anatomical Collection Method Collection Time Receive d Time (Source) Location / / Volume Laterality Blood specimen 10/25/2019 4:29 PM 020 5:24 (specimen) EDT PM EDT Resulting Agency Comment Spec In Lab Jenaro Dunne MD CHEMISTRY ORDERABLES Performing Organization Address City/[facility]/ZIP [facility] Phon e Number [address] Albumin Level (10/25/2019 4:29 PM EDT) athologist Signature Albumin 4.7 3.2 - 5.2 [facility] gm/dL [facility] LABORATORY Specimen Anatomical Collection Method Collection Time Receive d Time (Source) Location / / Volume Laterality Blood specimen 10/25/2019 4:29 PM 020 4:47 (specimen) EDT PM EDT Resulting Agency Comment Spec In Lab Maia Gómez DPM CHEMISTRY ORDERABLES Performing Organization Address [facility] [place] [address] Sedimentation rate (10/25/2019 4:29 PM EDT) athologist Signature Sed Rate 32 2 - 37 [facility] mm/hr [facility] LAB[facility] Comment: Effective April 21, 2019 new capillar y photometric technology has resulted in a change in reference ranges. It is r ecommended that each ESR result be reviewed with its own age appropriate re ference range. Specimen Anatomical Collection Method Collection Time Receive d Time (Source) Location / / Volume Laterality Blood specimen 10/25/2019 4:29 PM 020 4:47 (specimen) EDT PM EDT Resulting Agency Comment Spec In Lab Maia Gómez DPM HEMATOLOGY ORDERABLES Performing Organization Address City/[facility] [place] [address] (ABNORMAL) CRP, acute inflammation (10/25/2019 4:29 PM EDT) athologist Signature CRP 11.4 (H) <=4.9 mg/L [facility] LABORATORY Specimen Anatomical Collection Method Collection Time Receive d Time (Source) Location / / Volume Laterality Blood specimen 10/25/2019 4:29 PM 020 4:47 (specimen) EDT PM EDT Resulting Agency Comment Spec In Lab Maia Gómez DPM CHEMISTRY ORDERABLES Performing Organization Address City/State/[place] [address] documented in this encounter Visit Diagnoses Diagnosis Foot ulcer, left, with fat layer exposed Chronic vomiting Vomiting alone documented in this encounter Care Teams Auxiliary Power Equipment Operator Relationship Specialty Start Date End Date Brian Fall APRN PCP - General Internal Medicine 04/07/[address] [place] [phone] documented as of this encounter
--- OUTSIDE RECORDS SUMMARY | 2021-11-30 08:21 | XMS_ITS | Encounter Summary ---
:1955 [place] [address] Care Team Providers Name Role Phone Brian Fall APRN Primary Care Provider Encounter Details Date Type Department Care Team Description 02/09/2020 Office Visit W[facility] Care at [facility] uropathic ulcer of foot, right, with fat layer exposed; [facility] LISA Neuropathic ulcer of foot, left, with fa t layer exposed; [facility] [place] WOUND [place] [phone] Social History Tobacco Use Types Packs/Day Years Used Date Current Every Day Smoker Cigars, Cigarettes 1 42 Smokeless Tobacco: Never Used Alcohol Use Standard Drinks/Week Comments Yes 24 (1 standard drink = 0.6 oz pure alcoh ol) Sex Assigned at Date Recorded Not on file documented as of this encounter Patient Instructions Patient InstructionsNiki Stockton APRN - 02/09/2020 4:45 PM EDT Post Visit Instructions (Home [...] Beef, chicken, fish Beans, Lentils, peanut butter Syriac and regular yogurt Cheese, eggs ?? Boost, [...] taken care of by your physician or supervisor personnel clerks. ?? Avoid using any chemical or strong antiseptic solutions on your feet. Iodine, salicylic acid, corn/callus removers may burn the skin. ?? documented in this encounter Progress Notes Niki Stockton APRN - 02/09/2020 4:45 PM EDT Images from the original [...] hyperlipidemia. He has custom made shoes from [employer], he received in 09/2019. ABIs 10/25/19: RIGHT: [...] have intermittent pain to legs and feet. Reports did have increased swelling to left foot in increased redness to dorsal foot, now resolved with topical bacitracin and elevation. Objective: There were no vitals taken for this visit. General: pleasant, 64 year old male in NAD. Arrives with . Mobility: wheelchair for long distance. Edema:1 + to bilateral feet. DP, PT pulses palpable bilaterally. Varicosities: + to bilateral feet. Hemosiderin staining: none Stasis dermatitis: + to bilateral dorsal feet Callus: significant to bilateral plantars. Bilateral feet warm to touch. Wound location Measurement 02/09/20 Measurement 02/02/20 Measurement 01/26/20 Measurement 01/21/2020 Wound Bed Periwound skin Exudate/Odor Left Plantar ?? 0.9 x 0.8 x 0.4 cm 1.3 x 1.0 x 0.2 cm 0.6 x 0.6 x 0.2 cm 0.7 cm x 0.7 cm x 0.2 cm 100% smooth pink non-granulating 100% pink Moderate serous/none Right Plantar??(5th MTH) No opening. <0.1 x <0.1 x <0.1 cm 0.2 x 0.2 x 0.1 cm 0.3 cm x 0.5 cm x 0.1 cm 100% epithilial [place], dry and intact Minimal serous Right hallux (dorsal) No open area. No open area. 0.2 x 0.1 x 0.1 cm 0.3 cm x 0.2 cm x <0.1 cm 100% epithilial [place], dry, peeling Moderate serous/none Right calf: 37.0 cm Right Ankle: 26.0 cm Left calf: 38.o cm Left Ankle: 25.0 cm ?? PHOTO Left Plantar Right plantar Treatment: Wound Location: bilateral plantars Cleansed wound with normal saline and gauze. Lidocaine: None. Conservative Sharp Debridement: removed devitalized tissue using a #15 blade and forceps, less than 20 cm sq down to and including subcutaneous tissue to reveal healthier tissue. Mineral oil to bilateral lower legs and feet, washed with warm soap and water. Dressings/wraps applied: Left Plantar: Apply Aquacel Ag [...] fifth metatarsal. The right plantar ulcer is healed, the left is slightly small, but with increased maceration and slightly increased depth, continues to have bilateral lower extremity edema, using compression and has increased elevation. Will switch Aquacel AGto left plantar for antimicrobial and exudate management and non border foam to right plantar for protection and exudate. He continues to wear the forefoot offloading shoe on the left foot and a hexagon offloading shoe on the right foot with added met pads to these and slippers he wears at home on occation. Continues to have dermatitis to bilateral dorsal feet, which are dry, recommend increased moist urizer to these daily. I instructed the patient to continue to elevate his lower extremities frequently to help manage the edema. He will follow up here at the [facility] in one week or sooner if [...] plantar if worsens or does not improve. Wound(s) currently improving Barriers to healing: Neuropathy, [...] to dmitriy-wound. 4. Cut a piece of [employer] ribbon to cover ulceration and fan [...] Beef, chicken, fish Beans, Lentils, peanut butter Syriac and regular yogurt Cheese, eggs ?? Boost, [...] taken care of by your physician or supervisor personnel clerks. ?? Avoid using any chemical or strong antiseptic solutions on your feet. Iodine, salicylic acid, corn/callus removers may burn the skin. ? documented in this encounter Plan of Treatment Upcoming Encounters Date Type Specialty Care Team Description 12/11/2021 Appointment Radiology 12/11/2021 Office Visit Orthopaedics Marion Tavera APRN [facility] ORTHOPAEDIC SURG [place], [place] [address] (Wo rk) 01/15/2022 Appointment Radiology Stiven Cervantes MD [facility] Pulmonary Medici [place], [place] [address] (Wo rk) Scheduled Procedures Name [...] foot, left, with fa t layer exposed Dermatitis Contact dermatitis and other eczema, due to unspecified cause documented in this encounter Care Teams Vtc Technician Relationship Specialty Start Date End Date Brian Fall APRN PCP - General Internal Medicine 04/07/[address] [place] [phone] documented as of this encounter
--- OUTSIDE RECORDS SUMMARY | 2021-11-30 08:21 | XMS_ITS | Encounter Summary ---
:1955 [place] [address] Care Team Providers Name Role Phone Brian Fall APRN Primary Care Provider Encounter Details Date Type Department Care Team Description 12/24/2019 Office Visit W[facility] Care at [facility] uropathic ulcer of foot, right, with fat layer exposed; [facility] LISA Cellulitis of leg, right [facility] [place] W[place] [phone] Social History Tobacco Use Types Packs/Day Years Used Date Current Every Day Smoker Cigars, Cigarettes 1 42 Smokeless Tobacco: Never Used Alcohol Use Standard Drinks/Week Comments Yes 24 (1 standard drink = 0.6 oz pure alcoh ol) Sex Assigned at Date Recorded Not on file documented as of this encounter Progress Notes Niki Stockton APRN - 12/24/2019 10:30 AM EDT [facility] Progress Note Reason for visit: Follow up of right lower leg cellulitis and bilateral neuropathic ulcers. Initial consult date: 11/09/19 HPI: Pt reports they have been well since his last visit. He was prescribed keflex for right lower leg ulcer at last visit with improvement in erythema and resolution of warmth. He is followed by woundcenter for chronic ulcers of bilateral feet and new ulcer to right lower leg. Left foot xray with suspicion for osteo and MRI showing no osteo to 5th metatarsal or 4th metatarsal but lateral and first ray was incompletely imaged. Right foot with bleeding after paring of callous today. Examination: Patient is alert, conversant, comfortable, ambulating. Area of trauma to right plantar after callousremoval with resolution of bleeding with pressure and silver nitrate, slight peeling of epidermal layer. Right lower leg with slight redness but no warmth, suspect hemo staining and not infection. Impression: Mahin Ramos is a 64 y.o. year old male who was seen today for follow-up prior to wound care procedures and treatment. Please see the procedure note for details. We discussed continued monitoring of right lower leg, area was outlined with jorden if having worsening signs of infection should seek urgent care if not during wound clinic hours or call wound center. New area of callous removal site to right plantar, re approximated layer of epidermal tissue and covered with non border foam. Plan: 1. Follow up in 1 week 2. Continue dressing as described in RN note. 3. Follow up with podiatry next week to review MRI and plan of care. Mahin Ramos was seen today along with: Radha Salazar RN who provided technical wound care procedures after my visit. Please see their note for full details of the visit. documented in this encounter Plan of Treatment Upcoming Encounters Date Type Specialty Care Team Description 12/11/2021 Appointment Radiology 12/11/2021 Office Visit Orthopaedics Marion Tavera APRN [facility] ORTHOPAEDIC SURG [place], [place] [address] (Wo rk) 01/15/2022 Appointment Radiology Stiven Cervantes MD [facility] Pulmonary Medici [place], [place] [address] (Jorge rk) Scheduled Procedures Name Priority Associated Diagnoses [...] and abscess of leg, except fo ot documented in this encounter Care Teams Criminal Profiler Relationship Specialty Start Date End Date Brian Flal APRN PCP - General Internal Medicine 04/07/[address] [place] [phone] documented as of this encounter
--- OUTSIDE RECORDS SUMMARY | 2021-11-30 08:22 | XMS_ITS | Encounter Summary ---
:1955 Author Organization [facility] [place] [address] Care Team Providers Name Role Phone Laura Cherry APRN Primary Care Provider Encounter Details Date Type Department Care Team Description 03/02/[address] [facility] Angelica Jimenes, [facility] [place] [phone] [facility] [phone] [place], [place] [address] (Wo rk) Social History Tobacco Use Types Packs/Day Years Used Date Current Every Day Smoker Cigars, Cigarettes 1 42 Smokeless Tobacco: Never Used Alcohol Use Standard Drinks/Week Comments Yes 24 (1 standard drink = 0.6 oz pure alcoh ol) Sex Assigned at Date Recorded Not on file documented as of this encounter Miscellaneous Notes Telephone Encounter - Karlene Hawley RN - 03/02/2019 2:57 PM EDT Records and films for brain MRI and CSpine requested from PCP Laura Cherry documented in this encounter Plan of Treatment Upcoming Encounters Date Type Specialty Care Team Description 12/11/2021 Appointment Radiology 12/11/2021 Office Visit Orthopaedics Marion Tavera APRN [facility] DR ORTHOPAEDIC SURG [place], [place] [address] (Wo rk) 01/15/2022 Appointment Radiology Stiven Cervantes MD [facility] Pulmonary [place], [place] [address] (Wo rk) Scheduled Procedures Name [...] on filedocumented in this encounter Care Teams Gear Inspector Relationship Specialty Start Date End Date Laura Cherry APRN PCP - General Family Medicine 03/20/17 04/06/19 [address] [place] [address] documented as of this encounter
--- OUTSIDE RECORDS SUMMARY | 2021-11-30 08:22 | XMS_ITS | Encounter Summary ---
:1955 Author Organization [facility] [place] [address] Care Team Providers Name Role Phone [place] Cherry APRN Primary Care Provider Encounter Details Date Type Department Care Team Description 07/18/2017 Orders Only Pulmonology at [facility] Danya Castellano LPN [facility] [place] [phone] Social History Tobacco Use Types Packs/Day Years Used Date Current Every Day Smoker Cigars 0.1 42 Marek t: 09/28/2015 Smokeless Tobacco: Former User Alcohol Use Standard Drinks/Week Comments Yes 21 (1 standard drink = 0.6 oz pure alcoh ol) OCC maybe a six pack a week Alcohol Habits Answer Date Recorded How often do you have a drink containing Not asked alcohol? How many drinks containing alcohol do you Not asked have on a typical day when you are drinking? How often do you have six or more drinks on Not asked one occasion? Comment: OCC maybe a six pack a week 08/17/2015 Sex Assigned at Date Recorded Not on file documented as of this encounter Plan of Treatment Upcoming Encounters Date Type Specialty Care Team Description 12/11/2021 Appointment Radiology 12/11/2021 Office Visit Orthopaedics Marion Tavera APRN [facility] ORTHOPAEDIC SURG [place], [place] [address] (Wo rk) 01/15/2022 Appointment Radiology Stiven Cervantes MD [facility] Pulmonary Medici nelly [place], [place] [address] (Wo rk) Scheduled Procedures Name [...] Plan 9:07 AM EDT) [facility] Note: Formatting of this note might be d ifferent from the original. Patient Goal: To experience less side ef fects than his past regimen of Peg and Ribavirin Timeframe to meet goal: 3 months of ther apy documented as of this encounter Visit Diagnoses Not on filedocumented in this encounter Care Teams Candy Supervisor Relationship Specialty Start Date End Date Laura Cherry APRN PCP - General Family Medicine 03/20/17 04/06/[address] [place] [phone] documented as of this encounter
--- OUTSIDE RECORDS SUMMARY | 2021-11-30 08:22 | XMS_ITS | Encounter Summary ---
:1955 Author Organization [facility] Address [facility] [place] [address] Care Team Providers Name Role Phone Brian Fall APRN Primary Care Provider Reason for Visit Reason Onset Date Comments Other 05/25/2019 Faxed signed and com pleted oxygen certification of medical necessity to [employer] Encounter Details Date Type Department Care Team Description 05/25/2019 Telephone Pulmonology at [facility] Trisha Broderick, Other (Faxed signed and [facility] CCMA completed oxygen [place] [address] necessity to [employer] [phone] Medical Product s) Social History Tobacco Use Types Packs/Day Years [...] Visit Orthopaedics Marion Tavera APRN [facility] ER ORTHOPAEDIC SURG [place], [place] [address] (Wo rk) 01/15/2022 Appointment Radiology Stiven Cervantes MD [facility] er Pulmonary Medici nelly [place], [place] [address] (Wo rk) Scheduled Procedures Name [...] on filedocumented in this encounter Care Teams Center Medical Director Relationship Specialty Start Date End Date Brian Fall APRN PCP - General Internal Medicine 04/07/[address] [place] [phone] documented as of this encounter
--- OUTSIDE RECORDS SUMMARY | 2021-11-30 08:22 | XMS_ITS | Encounter Summary ---
:1955 Author Organization [facility] [place] [address] Care Team Providers Name Role Phone Brian Fall APRN Primary Care Provider Reason for Visit Consultation (Urgent) - Closed Specialty Diagnoses / Procedures Referred By Contact Refer red To Contact Gastroenterology Diagnoses Nausea persistent nausea and vomiting Brian Fall APRN Drinane, Mary C, MD Procedures persistent nausea and vomiting [address] [address] [place] [address] [place], [place], [place] [phone] Referral ID Status Reason Start Date Expiration Date Visits V isits Requested Authorized [id number] Closed Consult, Test 09/29/2019 09/28/2020 1 1 & Treat PCP Updated and/or Approved Encounter Details Date Type Department Care Team Description 10/01/2019 TH Visit [place]ology [place] [facility] Jenaro Carrillo Chronic vomiting; (TeleHealth) [facility] Jenni Yates MD Cirrhosis of liver without ascites, un[place] [address] [facility] [phone] [facility] [place] [address] Social History Tobacco Use Types Packs/Day Years Used Date Current Every Day Smoker Cigars, Cigarettes 1 42 Smokeless Tobacco: Never Used Alcohol Use Standard Drinks/Week Comments Yes 24 (1 standard drink = 0.6 oz pure alcoh ol) Sex Assigned at Date Recorded Not on file documented as of this encounter Progress Notes Jenaro Carrillo MD - 10/01/2019 10:00 AM EDT GASTROENTEROLOGY TELEHEALTH PROGRAM - NEW PATIENT VISIT Chief Complaint: Mahin Ramos is a 64 y.o. patient referred for consultation by . Brian Fall APRN for recurrent nausea and vomiting. I contacted him today for telephone visit given the recent public health emergency due to the COVID-19 pandemic. History of Present Illness: 64 y.o. 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 History was obtained from Mr. Ramos as well as his ; they both were on the phone today. He tells me that he has been vomiting intermittently for several months. He does not remember a clear trigger or specific time of onset. Rather, it seemed to be somewhat gradual. He reports that he hasbeen feeling better lately. He was throwing up fairly frequently but typically without any nausea orperhaps just minimal degree of nausea. This is typically after eating and usually within minutes, but his reports that sometimes he will awaken from sleep and vomit. Vomitus typically has food that he is just eaten and some bile. There is no associated abdominal pain, headache, change in vision, aura, diarrhea, change in bowel movements. He also has heartburn for which he takes omeprazole every m orning, which she thinks has helped the heartburn though has had no effect on the vomiting. Ondansetron was trialed twice per day, and he seems to think it helped significantly. His is a little less clear. Weight has been about the same. Evaluation has included an EGD by Dr. Rodriguez Richardson ([facility]) 09/01/19 - Mild gastritis, nl duodenum, biopsies taken and normal except for reactive gastropathy. I do not have record of any imaging, and the patient does not recall any. Labs are planned to be drawn today at [facility]. He has been on methadone for years for chronic pain and a history of polysubstance use disorder. Hiswife tells me that his providers have been trying to slowly wean his dose. He also takes gabapentin for pain. He denies any NSAID use but occasionally takes Tylenol. He uses cannabis on a daily basis and has been for decades. He feels that it helps his symptoms. He drinks 2 alcoholic drinks per day. No other new medications. He has never had abdominal surgery. Other recent pertinent history includes recurrent cellulitis in his feet where he has intermittent swelling. He also has had a nonhealing ulcer on his foot. According to his , he has been in and out of the hospital with frequent courses of antibiotics. Review of systems: 14-point review of systems reviewed and negative except as above. Medications: Outpatient Medications Prior to Visit Medication Sig Dispense Refill ??? donepezil (ARICEPT) 10 mg Tablet Take 1 tablet by mouth nightly. (Patient taking differently: Take 23 mg by mouth nightly.) 30 tablet 11 ??? citalopram (CELEXA) 20 [...] tablet Take 1 tablet by mouth daily. (Patient not taking: Reported on 05/07/2019) No facility-administered medications prior to visit. Allergies: is allergic to morphine. Past Medical History: has a past medical history of Cirrhosis, COPD (chronic obstructive pulmonary disease), Depression, GERD (gastroesophageal reflux disease), Hepatitis C, and HTN (hypertension). Past Surgical History: has a past surgical history that includes Revision total hip arthroplasty; Spine surgery; Upper GI Endoscopy, Diagnostic (32950) (Bilateral, 08/17/2015); Total Knee Arthroplasty (02422) (Left, 12/13/2015); (Left, 12/13/2015); and (Left, 12/13/2015). Family History: family history includes Cancer in his father, paternal grandmother, and paternal uncle; Osteoarthritis in his mother. Social History: reports that he has been smoking cigars and cigarettes. He has a 42.00 pack-year smoking history. He has never used smokeless tobacco. He reports current alcohol use of about 24.0 - 25.0 standard drinks of alcohol per week. He reports current drug use. Drug: Marijuana. He lives in [place], [place]. 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 He drinks Twisted Tea and/or Eric's Lemonade 2-3 times per day. No Physical Examination performed during this telemedicine visit Laboratory studies, imaging, and procedures (my review of prior records): Assessment/Plan: Mr. Ramos is a 64 y.o. patient with history of polysubstance use disorder, smoking, COPD, recurrent cellulitis, cirrhosis, history of hepatitis C with a sustained viral remission, who now presents in consultation via telephone visit with months of vomiting with minimal nausea that was somewhat responsive to ondansetron. This is in the setting of a dependence on methadone and chronic cannabis use along with a recent unremarkable upper endoscopy. It is not entirely clear to me if Mr. Ramos is suffering from regurgitation or true nausea with vomiting. He does describe some degree of nausea, and, interestingly, he gives a history of responding toondansetron. So, I think it is more likely nausea with vomiting and regurgitation. I think the differential here consists of functional causes, such as gastroparesis and functional dyspepsia, medication induced nausea and vomiting, with cannabis hyperemesis (although somewhat atypical) and methadone being the most likely culprits, and much less likely a central cause or obstructive cause. It is important to note that he has not lost any weight, and there are no other obvious warning signs on review of systems. This is at least moderately reassuring with the caveat that our visit was by telephone today. With these thoughts in mind, I recommended that we obtain a complete blood count and comprehensive metabolic panel to make sure that there is no anemia or dramatic metabolic derangements that would cause me to rethink the urgency of his work-up and potential underlying causes. [facility] will have these [facility]. He is going there today. Otherwise, I recommended that we treat him symptomatically for now. While we considered gastric emptying study, I do not think it would change our management at this point. Specifically, I recommended a gastroparesis type diet and we will have our office send him a written guide line. I also recommended taking ondansetron, since it was helpful for him, meme regular basis. He should take 4 mg approximately 15 minutes before a meal 3 times per day. He willavoid eating within 2 to 3 hours of laying down for sleep each night. I was clear with him that I thought a trial of at least 6 weeks off of cannabis would be beneficial to see what the contribution isof cannabis to his symptoms. He was very reluctant. Lastly, he and his tell me that his providers are trying to slowly wean his methadone, which may also be helpful in controlling his symptoms. Lastly, I addressed his underlying cirrhosis. I confirmed that in 2017 a hepatitis C viral load measurement was undetectable. This is good news. I recommended that he cut back his drinking to stay completely abstinent, as ongoing chronic small to moderate amounts of alcohol in the setting of cirrhosis can cause decompensation. He also should have an ultrasound every 6 months to screen for hepatoma. Recommendations: # Will have our office send a gastroparesis-type diet handout # Ondansetron 4 mg ODT 15 minutes prior to meals 3 times per day # Complete blood count and conference of metabolic panel to be drawn at [facility] today # Recommend a trial of abstinence from cannabis for at least 6 weeks # Continued work with providers to reduce methadone # For Cirrhosis needs HCC surveillance with ultrasound of his liver every 6 months. # Follow-up with Mr. Fall and with me as needed ?? Patient verbally consents to this telephone visit and understands that this visit may be billed, similar to a clinic office visit. I provided care to the patient today via telephone call, 45 minutes telephone visit was spent in discussion with patient on above. Jenaro CARRILLO MD [facility] [place] [phone] documented in this encounter Plan of Treatment Upcoming Encounters Date Type Specialty Care Team Description 12/11/2021 Appointment Radiology 12/11/2021 Office Visit Orthopaedics Marion Tavera APRN [facility] ORTHOPAEDIC SURG [place] [address] (Wo rk) 01/15/2022 Appointment Radiology Stiven Cervantes MD [facility] Pulmonary Medici [place], [place] [address] (Wo rk) Scheduled Procedures Name [...] documented as of this encounter Results (ABNORMAL) Comprehensive metabolic panel (non-fasting) (10/25/2019 4:29 PM EDT) athologist Signature Glucose Lvl 105 65 - 199 [facility] mg/dL [facility] Comment: Diabetes: >=200 mg/dL plus symp toms BUN 6 (L) 10 - 20 mg/dL [facility] Creatinine 0.98 0.80 - 1.50 mg/dL [facility] Sodium 137 135 - 145 mmol/L [facility] Potassium 3.7 3.5 - 5.0 mmol/L [facility] Comment: Please note: ??Patients with WBC >100,00 0 may have falsely elevated Potassium levels. ??For accurate Potassium quantif ication in these patients send serum separator tube (gold top) for subsequent determinations. ??Contact the Clinical Chemistry Laboratory if there are any qu estions. Chloride 92 (L) 98 - 107 mmol/L [facility] CO2 Not Perf - [facility] Comment: Add-on request. Sample too old to perform test. Anion Gap Unable to Calculate 5 - 15 mmol/L [facility] Calcium 10.1 8.5 - 10.5 mg/dL [facility] Total Protein 7.8 6.1 - 8.0 gm/dL [facility] Albumin 4.5 3.2 - 5.2 gm/dL [facility] AST 17 0 - 39 unit/L [facility] ALT 13 0 - 55 unit/L [facility] Alk Phos 114 40 - 130 unit/L [facility] Total Bilirubin 0.6 0.2 - 1.3 mg/dL [facility] Estimated GFR 80 >=60 mL/min/1.73 m?? [facility] Comment: The eGFR was calculated using the CKD-EP I equation. As with all creatinine based estimates of kidney function, eGFR values calculated with the CKD-EPI equation are not accurate in patients wi th acute kidney failure, extremes of body mass or the acutely ill. http://[email or web address]/[facility] eGFR 93 >=60 mL/min/1.73 m?? [facility] Comment: The eGFR was calculated using the CKD-EP I equation. As with all creatinine based estimates of kidney function, eGFR values calculated with the CKD-EPI equation are not accurate in patients wi th acute kidney failure, extremes of body mass or the acutely ill. [email or web address]/[facility] Specimen Anatomical Collection Method Collection Time Receive d Time (Source) Location / / Volume Laterality Blood specimen 10/25/2019 4:29 PM 020 5:24 (specimen) EDT PM EDT Resulting Agency Comment Spec In Lab L Milan Carrillo MD CHEMISTRY ORDERABLES Performing Organization Address City/State/ZIP [place] [address] documented in this encounter Visit Diagnoses Diagnosis Chronic vomiting Vomiting alone Cirrhosis of liver without ascites, unsp ecified hepatic cirrhosis type documented in this encounter Care Teams Grain Blender Relationship Specialty Start Date End Date Brian Fall APRN PCP - General Internal Medicine 04/07/[address] [place] [phone] documented as of this encounter
--- OUTSIDE RECORDS SUMMARY | 2021-11-30 08:22 | XMS_ITS | Encounter Summary ---
:1955 Author Organization [facility] [place] [address] Care Team Providers Name Role Phone Brian Fall APRN Primary Care Provider Encounter Details Date Type Department Care Team Description 09/28/2019 Telephone Gastroenterology at [facility] [place] [address] Social History Tobacco Use Types Packs/Day Years Used Date Current Every Day Smoker Cigars, Cigarettes 1 42 Smokeless Tobacco: Never Used Alcohol Use Standard Drinks/Week Comments Yes 24 (1 standard drink = 0.6 oz pure alcoh ol) Sex Assigned at Date Recorded Not on file documented as of this encounter Miscellaneous Notes Telephone Encounter - Tequila Espana - 09/28/2019 4:00 PM EDT Deandre from [facility] called to let us know they will be sending a referral for this pt, whoBrian Fall would like seen right away. Deandre states he thinks the pt really needs to be seen inclinic vs a tele visit. He has persistent nausea and vomiting. Provided Brian with our fax # to send the referral to. Please have reviewed once we receive it, to find out who may be able to see the pt in clinic. documented in this encounter Plan of Treatment Upcoming Encounters Date Type Specialty Care Team Description 12/11/2021 Appointment Radiology 12/11/2021 Office Visit Orthopaedics Marion Tavera APRN [facility] ER DR ORTHOPAEDIC SURG [place], [place] [address] (Wo rk) 01/15/2022 Appointment Radiology Stiven Cervantes MD [facility] Pulmonary Medici nelly [place], [place] [address] (Wo rk) Scheduled Procedures Name [...] on filedocumented in this encounter Care Teams Assistant Refinery Operator Relationship Specialty Start Date End Date Brian Fall APRN PCP - General Internal Medicine 04/07/[address] [place] [phone] documented as of this encounter
--- OUTSIDE RECORDS SUMMARY | 2021-11-30 08:22 | XMS_ITS | Encounter Summary ---
:1955 Author Organization [facility] [place] [address] Care Team Providers Name Role Phone Brian Fall APRN Primary Care Provider Reason for Visit Reason Onset Date Comments Reminder Appointment 10/01/2019 Encounter Details Date Type Department Care Team Description 10/01/2019 Telephone Gastroenterology at [facility] Cortney Lynn Reminder Appointment [facility] [place] [address] Social History Tobacco Use Types Packs/Day Years Used Date Current Every Day Smoker Cigars, Cigarettes 1 42 Smokeless Tobacco: Never Used Alcohol Use Standard Drinks/Week Comments Yes 24 (1 standard drink = 0.6 oz pure alcoh ol) Sex Assigned at Date Recorded Not on file documented as of this encounter Miscellaneous Notes Telephone Encounter - Cortney Lynn CCMA - 10/01/2019 8:30 AM EDT Called patient to review medications and allergies for their upcoming gastroenterology Type of Appointment: Phone appointment. Reach Patient during MA Check: No, Did not leave a message Was unable to reach patient before appointment time Notes for the provider: Notes for the nurse: documented in this encounter Plan of Treatment Upcoming Encounters Date Type Specialty Care Team Description 12/11/2021 Appointment Radiology 12/11/2021 Office Visit Orthopaedics Marion Tavera APRN [facility] DR ORTHOPAEDIC SURG [place], [place] [address] (Wo rk) 01/15/2022 Appointment Radiology Stiven Cervantes MD [facility] er Dr Carlos Dumont [place], [place] [address] (Wo rk) Scheduled Procedures Name [...] on filedocumented in this encounter Care Teams Dude Wrangler Relationship Specialty Start Date End Date Brian Fall APRN PCP - General Internal Medicine 04/07/19 [address] [place] [phone] documented as of this encounter
--- OUTSIDE RECORDS SUMMARY | 2021-11-30 08:22 | XMS_ITS | Encounter Summary ---
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 Certificate of Medic al Necessity Encounter Details Date Type Department Care Team Description 04/24/2019 Telephone Pulmonology at [facility] Reji Oxygen Dependence [facility] Jenni [place] ([place] [address] S, RN Necessity) [phone] Social History Tobacco Use Types Packs/Day Years Used Date Current Every Day Smoker Cigars, Cigarettes 1 42 Smokeless Tobacco: Never Used Alcohol Use Standard Drinks/Week Comments Yes 24 (1 standard drink = 0.6 oz pure alcoh ol) Sex Assigned at Date Recorded Not on file documented as of this encounter Miscellaneous Notes Telephone Encounter - Karen Mendoza RN - 04/24/2019 10:08 AM EST Faxed completed Certificate of Medical Necessity, signed by Dr. Cervantes. This covered the following items: E1390 RR Concentrator 5 LPM W/O2 Sen Port K0738 RR Transfill O2 Unit E0424 RR Regulator O2 Stationary 0-8 LPM. Fax submission confirmation time stamped for 04/23/2019 @ 5514. 3 pages with cover sheet. Copy of COMN sent to scanning for inclusion to patient records. documented in this encounter Plan of Treatment Upcoming Encounters Date Type Specialty Care Team Description 12/11/2021 Appointment Radiology 12/11/2021 Office Visit Orthopaedics Marion Tavera APRN [facility] ER ORTHOPAEDIC SURG [place], [place] [address] (Wo rk) 01/15/2022 Appointment Radiology Stiven Cervantes MD [facility] er Pulmonary Medici [place], [place] [address] (Wo rk) Scheduled Procedures Name [...] APRN PCP - General Internal Medicine 04/07/[address] [place] [phone] documented as of this encounter
--- OUTSIDE RECORDS SUMMARY | 2021-11-30 08:22 | XMS_ITS | Encounter Summary ---
:1955 [place] [address] Care Team Providers Name Role Phone Brian Fall APRN Primary Care Provider Encounter Details Date Type Department Care Team Description 10/07/2019 Telephone Wound Care at Anusha Huerta [facility] [place] [address] Social History Tobacco Use Types Packs/Day Years Used Date Current Every Day Smoker Cigars, Cigarettes 1 42 Smokeless Tobacco: Never Used Alcohol Use Standard Drinks/Week Comments Yes 24 (1 standard drink = 0.6 oz pure alcoh ol) Sex Assigned at Date Recorded Not on file documented as of this encounter Miscellaneous Notes Telephone Encounter - Anusha Rebollar LPN - 10/07/2019 1:04 PM EDT called to ask if we received a new patient referral on [place]. Reviewed the chart and I do not see a new referral. Padmini will call PCP and request the referral be sent KEN. Anusha Rebollar LPN 2:54pm Referral received. Scanned a copy to [place] to call and schedule appointment. Anusha Rebollar LPN documented in this encounter Plan of Treatment Upcoming Encounters Date Type Specialty Care Team Description 12/11/2021 Appointment Radiology 12/11/2021 Office Visit Orthopaedics Marion Tavera APRN [facility] DR ORTHOPAEDIC SURG [place], [place] [address] (Wo rk) 01/15/2022 Appointment Radiology Stiven Cervantes MD [facility] Pulmonary Medici nelly [place], [place] [address] (Wo rk) Scheduled Procedures Name [...] on filedocumented in this encounter Care Teams Radio Assembler Relationship Specialty Start Date End Date Brian Fall APRN PCP - General Internal Medicine 04/07/[address] [place] [phone] documented as of this encounter
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
--- OUTSIDE RECORDS SUMMARY | 2021-11-30 08:22 | XMS_ITS | Encounter Summary ---
:1955 [place] [address] Care Team Providers Name Role Phone Brian Fall APRN Primary Care Provider Encounter Details Date Type Department Care Team Description 10/25[facility] plantar surface of left midfoot with fat layer exposed; [facility] Chronic f oot ulcer, right, [place] [address] Social History Tobacco Use Types Packs/Day [...] 12/11/2021 Office Visit Orthopaedics Marion Tavera APRN [facility] DR ORTHOPAEDIC SURG [place], [place] [address] (Wo rk) 01/15/2022 Appointment Radiology Stiven Cervantes MD [facility] Pulmonary Medici nelly [place], [place] [address] (Wo rk) Scheduled Procedures Name [...] Name Priority Date/Time Associated Diagnosis Comme nts DONTAE/TCPO2 Routine 10/25/2019 1:40 PM Chronic ulcer of Resul ts for this (TRANSCUTANEOUS EDT plantar surface of proced ure are in OXYGEN PRESSURE left midfoot with the res ults TEST) fat layer expose d section. Chronic foot ulcer, right, with fat layer exposed documented in this encounter Results DONTAE/TCPO2 (Transcutaneous Oxygen Pressure Test) (10/25/2019 1:40 PM EDT) Component Value Ref Test Analysis Performed At [facility] Lua Range Method Time Signature VB Text Department: Vascular Surgery Lab VASCUBASE Report Patient: [id number] ([facility]) CPT: 69215 ICD10: L97.422;L97.512 Referring Physician: ZEYAD FRANKLIN ?? Phone: Indications: Poor healing plantar ulcer bilaterally. Diabetes mellitus: no ICD10 Diagnosis Code: L97.422, L97.512 Findings: Right ?Pressure (mmHg) ?? DONTAE ??Waveform ?? TCPO2 ?? Brachial Artery ?167 ? Common Femoral Artery ? Triphasic ? Pop Fossa ? Triphasic ? Dorsalis Pedis (Ankle) Arter y ?180 ?1.08 ??Triphasic ? Posterior Tibial (Ankle) Art lenora ??168 ?1.01 ??Triphasic ? 10 cm Above Knee ?34 ?? 15 cm Below Knee ?28 ?? ForeFoot ?17 ?? Left ? Pressure (mmHg) ?? DONTAE ??Waveform ?? TCPO2 ?? Brachial Artery ?163 ? Common Femoral Artery ? Triphasic ? Pop Fossa ? Triphasic ? Dorsalis Pedis (Ankle) Arter y ?169 ?1.01 ??Triphasic ? Posterior Tibial (Ankle) Art lenora ??173 ?1.04 ??Triphasic ? Chest ? 45 ?? 10 cm Above Knee ?40 ?? 15 cm Below Knee ?42 ?? ForeFoot ?26 ?? Interpretation: RIGHT: No significant lower extremity arterial o cclusive disease identifiable at rest. Normal ankle/brachial pressure ratios and ankle D oppler waveforms. LEFT: No significant lower e xtremity arterial occlusive disease identifiable at rest. Normal ankle/brachial pressure ratios and ankle Dopple r waveforms. Published reports suggest a TCPO2 of 30 mm Hg or greater predictive of adequate tissue oxygenation to promote healing of skin ulcers and amp utation sites. Comparison: ??No previous study in our vascular lab da tamiko for comparison. 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
--- OUTSIDE RECORDS SUMMARY | 2021-11-30 08:22 | XMS_ITS | Encounter Summary ---
:1955 Author Organization [facility] [place] [address] Care Team Providers Name Role Phone Brian Fall APRN Primary Care Provider Reason for Referral Diagnostic Test (Routine) - Closed Specialty Diagnoses / Procedures Referred By Contact Refer red To Contact Radiology Diagnoses Subdural hematoma Beny Ta APRN [facility] Rad Ct Scan Procedures CT Head wo Contrast (Generic) [facility] [place] [address] [place] [address] Referral ID Status Reason Start Date Expiration Date Visits V isits Requested Authorized [id number] Closed Specialty 04/09/2019 06/07/2019 1 1 Service Requested Reason for Visit Diagnostic Test (Routine) - Closed Specialty Diagnoses / Procedures Referred By Contact Refer red To Contact Radiology Diagnoses Subdural hematoma Beny Ta APRN [facility] Rad Ct Scan Procedures CT Head wo Contrast (Generic) [facility] [place] [address] [place] [address] Referral ID Status Reason Start Date Expiration Date Visits V isits Requested Authorized [id number] Closed Specialty 04/09/2019 06/07/2019 1 1 Service Requested Encounter Details Date Type Department Care Team Description 05/07/[address] Scan at [facility] Beny Ta, Subdural hematoma [facility] [address] [facility] [address] [place] [address] [phone] Social History Tobacco Use Types Packs/Day Years Used Date Current Every Day Smoker Cigars, Cigarettes 1 42 Smokeless Tobacco: Never Used Alcohol Use Standard Drinks/Week Comments Yes 24 (1 standard drink = 0.6 oz pure alcoh ol) Sex Assigned at Date Recorded Not on file documented as of this encounter Medications at Time of Discharge Medication Sig Dispensed Refills Start Date End Date meTOPROLOL succinate Take 100 mg by mouth 0 07/25 (TOPROL-XL) 100 mg daily. (In addition Tablet Sustained 50mg tab, total dose: Release 24 hr 150mg daily) multivitamin Take 1 tablet by mouth 0 08/21/2012 (THERAGRAN) tablet daily. donepezil (ARICEPT) 10 Take 1 tablet by [...] Visit Orthopaedics Marion Tavera APRN [facility] ER DR ORTHOPAEDIC SURG [place], [place] [address] (Wo rk) 01/15/2022 Appointment Radiology Stiven Cervantes MD [facility] er Pulmonary Medici nelly [place], [place] [address] (Wo rk) Scheduled Procedures Name [...] Name Priority Date/Time Associated Diagnosis Comme nts CT HEAD WO CONTRAST Routine 05/07/2019 9:49 AM Subdural hemato ma Results for this (GENERIC) EST procedure are i n the results section. documented in this encounter Results CT Head wo Contrast (Generic) (05/07/2019 9:49 AM EST) Anatomical Region Laterality Modality Head Computed Tomography Specimen (Source) Anatomical Location Collection Method / Collectio n Time Received Time / Laterality Volume Impressions 05/07/2019 3:31 PM EST Interval resolution of the small right parafalcine subdural hemorrhage. I have personally reviewed the image(s) and the resident's interpretation and agree with the findings, Dania Zuleta at 05/07/2019 3:31 PM Thank you for letting us participate in the care of this patient. For questions regarding this report, please contact e number below. ? Narrative 05/07/2019 3:31 PM EST EXAMINATION: CT HEAD WO CONTRAST (GENERIC) CLINICAL HISTORY: Outpatient follow-up f or small parafalcine SDH after fall TECHNIQUE: CT head performed without intravenous co ntrast administration. COMPARISON: 04/07/2019 CT head FINDINGS: Interval resolution of the previously no lul small parafalcine subdural hemorrhage. No evidence of new subdural hemorrhage or other extra-axial collection. No intraparenchymal hemorrha ge or mass effect. Ventricles and sulci are mildly prominen t, on a background of mild diffuse cerebral atrophy. Mild patchy periventri cular and central pontine white matter hypoattenuation is suggestive of chronic microangiopathy. Normal orbits and globes. Minimal mucosa l thickening in the right maxillary sinus. The paranasal sinuses and mastoid air cells are otherwise clear. Probable ebony bullosa. The previously noted sca lp hematoma near the vertex has resolved. Procedure Note Dania Zuleta MD - 05/07/2019Form atting of this note might be different from the original. EXAMINATION: CT HEAD WO CONTRAST (GENERI C) CLINICAL HISTORY: Outpatient follow-up f or small parafalcine SDH after fall TECHNIQUE: CT head performed without intravenous co ntrast administration. COMPARISON: 04/07/2019 CT head FINDINGS: Interval resolution of the previously no lul small parafalcine subdural hemorrhage. No evidence of new subdural hemorrhage or other extra-axial collection. No intraparenchymal hemorrha ge or mass effect. Ventricles and sulci are mildly prominen t, on a background of mild diffuse cerebral atrophy. Mild patchy periventri cular and central pontine white matter hypoattenuation is suggestive of chronic microangiopathy. Normal orbits and globes. Minimal mucosa l thickening in the right maxillary sinus. The paranasal sinuses and mastoid air cells are otherwise clear. Probable ebony bullosa. The previously noted sca lp hematoma near the vertex has resolved. IMPRESSION Interval resolution of the small right p arafalcine subdural hemorrhage. I have personally reviewed the image(s) and the resident's interpretation and agree with the findings, Dania Zuleta at 05/07/2019 3:31 PM Thank you for letting us participate in the care of this patient. For questions regarding this report, please contact e number below. Beny Ta APRN IMG CT ORDERABLES documented in this encounter Visit Diagnoses Diagnosis Subdural hematoma Subdural hemorrhage documented in this encounter Care Teams Final Installer Inspector Relationship Specialty Start Date End Date Brian Fall APRN PCP - General Internal Medicine 04/07/[address] [place] [phone] documented as of this encounter
--- OUTSIDE RECORDS SUMMARY | 2021-11-30 08:22 | XMS_ITS | Encounter Summary ---
:1955 Author Organization [facility] [place] [address] Care Team Providers Name Role Phone Brian Fall APRN Primary Care Provider Encounter Details Date Type Department Care Team Description 06/29/2018 Hospital Encounter Gastroenterology at [facility] Trev Hong MD [facility] [place] [address] [place] [address] GASTROENTEROLOGY [place], [place] [address] Social History Tobacco Use Types [...] Visit Orthopaedics Marion Tavera APRN [facility] ORTHOPAEDIC SURG [place], [place] [address] (Wo rk) 01/15/2022 Appointment Radiology Stiven Cervantes MD [facility] Pulmonary Medici nelly [place], [place] [address] (Wo rk) Scheduled Procedures Name [...] Diagnoses Not on filedocumented in this encounter Additional Health Concerns Infection Onset Date Last Indicated Resolved Time Rule Out C. difficile 11/26/2021 11/26/2021 11/27/2021 2:30 PM EDT documented as of this encounter Care Teams Wallpaper Remover Steam Relationship Specialty Start Date End Date Brian Fall APRN PCP - General Internal Medicine 04/07/19 [address] [place] [phone] documented as of this encounter
--- OUTSIDE RECORDS SUMMARY | 2021-11-30 08:22 | XMS_ITS | Encounter Summary ---
:1955 Author Organization [place] [address] Care Team Providers Name Role Phone Laura Cherry APRN Primary Care Provider Encounter Details Date Type Department Care Team Description 09/09/2017 Telephone Pulmonology at [facility] [place] [address] Social History Tobacco Use Types Packs/Day [...] encounter Miscellaneous Notes Telephone Encounter - Agatha Campos RT - 09/09/2017 10:50 AM EDT Called Mahin Ramos at home, reviewed information from [employer] regarding his oxygen coverage. He thought that currently their insurance is also paying [facility]. He will have his call me back to review this. documented in this encounter Plan of Treatment Upcoming Encounters Date Type Specialty Care Team Description 12/11/2021 Appointment Radiology 12/11/2021 Office Visit Orthopaedics Marion Tavera APRN [facility] ER ORTHOPAEDIC SURG [place], [place] [address] (Wo rk) 01/15/2022 Appointment Radiology Stiven Cervantes MD [facility] Pulmonary Medici [place], [place] [address] (Wo rk) Scheduled Procedures Name [...] AM EDT) [facility] Note: Formatting of this note might be d ifferent from the original. Patient Goal: To experience less side ef fects than his past regimen of Peg and Ribavirin Timeframe to meet goal: 3 months of ther apy documented as of this encounter Visit Diagnoses Not on filedocumented in this encounter Care Teams Project Asst Relationship Specialty Start Date End Date Laura Cherry APRN PCP - General Family Medicine 03/20/17 04/06/19 [address] [place] [address] documented as of this encounter
--- OUTSIDE RECORDS SUMMARY | 2021-11-30 08:22 | XMS_ITS | Encounter Summary ---
:1955 [place] [address] Care Team Providers Name Role Phone Brian Fall APRN Primary Care Provider Encounter Details Date Type Department Care Team Description 10/15/2019 Orders Only Wound Care at [facility] Ch rondelfina ulcer of plantar surface of left midfoot with fat layer exposed; [facility] LISA Chronic foot ulcer, right, with fat laye r exposed [facility] DR [place] WOUND [place] [id number] 6 [address] [phone] Social History Tobacco Use Types Packs/Day Years [...] 12/11/2021 Office Visit Orthopaedics Marion Tavera APRN [facility] ORTHOPAEDIC SURG [place], [place] [address] (Wo rk) 01/15/2022 Appointment Radiology Stiven Cervantes MD [facility] Pulmonary Medici nelly [place], [place] [address] (Wo rk) Scheduled Procedures Name [...] apy documented as of this encounter Results DONTAE/TCPO2 (Transcutaneous Oxygen Pressure Test) (10/25/2019 1:40 PM EDT) Component Value Ref Test Analysis Performed At [facility] [employer] Range Method Time Signature VB Text Department: Vascular Surgery Lab VASCUBASE Report Patient: [id number] ([facility]) CPT: 50333 ICD10: L97.422;L97.512 Referring Physician: ZEYAD FRANKLIN ?? 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
--- OUTSIDE RECORDS SUMMARY | 2021-11-30 08:22 | XMS_ITS | Encounter Summary ---
:1955 [place] [address] Care Team Providers Name Role Phone Brian Fall APRN Primary Care Provider Encounter Details Date Type Department Care Team Description 05/06/2019 Telephone Orthopaedics at [facility] Gordon Mallory MD [facility] [place] [address] ORTHOPAEDICS [phone] [place], [place] [address] (Wo rk) Social History Tobacco [...] Marion Tavera APRN [facility] ORTHOPAEDIC SURG [place], [place] [address] (Wo rk) 01/15/2022 Appointment Radiology Stiven Cervantes MD [facility] Pulmonary Medici nelly [place], [place] [address] (Wo rk) Scheduled Procedures [...] Action Plan 9:07 AM EDT) [facility] Note: Formatting of this note might be d ifferent from the original. Patient Goal: To experience less side ef fects than his past regimen of Peg and Ribavirin Timeframe to meet goal: 3 months of ther apy documented as of this encounter Visit Diagnoses Not on filedocumented in this encounter Care Teams Habilitation Assistant Relationship Specialty Start Date End Date Brian Fall APRN PCP - General Internal Medicine 04/07/[address] [place] [phone] documented as of this encounter
--- OUTSIDE RECORDS SUMMARY | 2021-11-30 08:22 | XMS_ITS | Encounter Summary ---
:1955 Author Organization [facility] [place] [address] Care Team Providers Name Role Phone Brian Fall APRN Primary Care Provider Encounter Details Date Type Department Care Team Description 09/01/2019 Hospital Encounter Laboratory [facility] [place] [address] Social History Tobacco Use Types Packs/Day [...] mg Tablet mouth three times a day donepezil (ARICEPT) 10 Take 1 tablet by [...] 12/11/2021 Office Visit Orthopaedics Marion Tavera APRN [facility] MEDICAL [facility] ORTHOPAEDIC SURG [place], [place] [address] (Wo rk) 01/15/2022 Appointment Radiology Stiven Cervantes MD [facility] er Pulmonary Medici [place], [place] [address] (Wo rk) Scheduled Procedures Name [...] Action Plan 9:07 AM EDT) [facility] Note: Formatting of this note might be d ifferent from the original. Patient Goal: To experience less side ef fects than his past regimen of Peg and Ribavirin Timeframe to meet goal: 3 months of ther apy documented as of this encounter Procedures Procedure Name Priority Date/Time Associated Diagnosis Comme [facility] SURGICAL PATHOLOGY Routine 09/01/2019 11:30 AM Fernanda dunbar for this REPORT EDT procedure are i n the results section. documented in this encounter Results Surgical Pathology Report (09/01/2019 11:30 AM EDT) Component Value Ref Test Analysis Performed At [facility] Range Method Time Signature Surgical [id number] ? Location: [facility] Report The signing pathologist has (i) examined the relevant preparation(s) for the [facility]IAL specimen(s) and (ii) rendered or confirmed the diagnosis(es) . HOSPITAL LABORATORY . ?Surgic al Pathology DIAGNOSIS A - Duodenum, biopsy: - Duodenal mucosa, negative for diagnostic abnormality ?? . B - Antrum, biopsy: - ??Antrum-type mucosa with reactive gastropathy. C - Body of stomach, biopsy: - ??Body/fundic-type mucosa, negative for diagnostic abnorma lity. Electronically signed by: ??Palomo Bergman MD Verified: ??09/02/2019 ?Pathologist Performed at: ??-[facility] Dept. of Pathology, [place], [place] SPECIMEN(S) SUBMITTED A - duodenum, biopsy (1) B - antrum, biopsy (1) C - body of stomach, biopsy (1) CLINICAL INFORMATION Early satiety; nausea, vomit ed ? 1 month Report to: Brian Fall Referring Identifier: ?(not provided) SPECIMEN PROCESSING A - Labeled/Fixative: #1 duodenum BX, formalin. Quantity/Size: Five, average 0.1 cm. Tissue Description: Soft, red-brown tissues. Sections/Processing: Submitted en toto ??in 1 cassette labeled A1. B - Labeled/Fixative: #2 antrum BX, formalin. Quantity/Size: Two, ranging 0.2-0.3 cm. Tissue Description: Soft, ring-brown tissues. Sections/Processing: Submitted en toto ??in 1 cassette labeled B1. C - Labeled/Fixative: #3 body of stomach BX, formalin. Quantity/Size: Single, 0.5 cm. Tissue Description: Soft, ring-brown tissue. Sections/Processing: Submitted en toto ??in 1 cassette labeled C1. ??MLL Specimen (Source) Anatomical Collection Method Collection Time Re ceived Time Location / / Volume Laterality 09/01/2019 11:30 AM EDT Spencer Richardson DO PATHOLOGY/CYTOLOGY ORDERABL ES Performing Organization Address City/State/ZIP Code Phon e Number [place] [phone] documented in this encounter Visit Diagnoses Not on filedocumented in this encounter Care Teams Overedge Machine Operator Relationship Specialty Start Date End Date Brian Fall APRN PCP - General Internal Medicine 04/07/[address] [place] [phone] documented as of this encounter
--- OUTSIDE RECORDS SUMMARY | 2021-11-30 08:22 | XMS_ITS | Encounter Summary ---
:[address] [facility] [place] [address] Care Team Providers Name Role Phone Laura Cherry APRN Primary Care Provider Reason for Visit Reason Onset Date Comments Other 05/08/2018 faxed medical record s requested for past 12 months Encounter Details Date Type Department Care Team Description 05/08/[address] [facility] Sissy Mei Other (faxed [facility] Jenni [place] [address] past 12 months) [phone] Social History Tobacco Use Types Packs/Day Years [...] APRN [facility] ORTHOPAEDIC SURG [place], [place] [address] (Wo rk) 01/15/2022 Appointment Radiology Stiven Cervantes MD [facility] er Pulmonary Medici [place], [place] [address] (Wo rk) Scheduled Procedures Name [...] on filedocumented in this encounter Care Teams Intake Nurse Relationship Specialty Start Date End Date Laura Cherry APRN PCP - General Family Medicine 03/20/17 04/06/19 [address] [place] [address] documented as of this encounter
--- OUTSIDE RECORDS SUMMARY | 2021-11-30 08:22 | XMS_ITS | Encounter Summary ---
:1955 [place] [address] Care Team Providers Name Role Phone Brian Fall APRN Primary Care Provider Reason for Visit Consultation (Routine) - Closed Specialty Diagnoses / Procedures Referred By Contact Refer red To Contact Wound Care Diagnoses received via fax chronic wounds of feet bilaterally Brian Fall APRN [facility] [address] [place] [address] [place] [address] Phone: Referral ID Status Reason Start Date Expiration Date Visits Requ ested Visits Authorized [id number] Closed 10/07/2019 10/06/2020 1 1 Encounter Details Date Type Department Care Team Description 10/13/2019 Office Visit Wound Care at [facility] Ch ronic ulcer of plantar surface of left midfoot with fat layer exposed; [facility] LISA Chronic foot ulcer, right, with fat laye r exposed; [facility] Traumatic open wound of righ t lower leg, initial encounter [facility] [place], [place] [phone] Social History Tobacco Use Types Packs/Day Years Used Date Current Every Day Smoker Cigars, Cigarettes 1 42 Smokeless Tobacco: Never Used Alcohol Use Standard Drinks/Week Comments Yes 24 (1 standard drink = 0.6 oz pure alcoh ol) Sex Assigned at Date Recorded Not on file documented as of this encounter Last Filed Vital Signs Vital Sign Reading Time Taken Comments Blood Pressure 153/68 10/13/2019 4:14 PM EDT Pulse 67 10/13/2019 4:14 PM EDT Temperature 36.5 ??C (97.7 ??F) 10/13/2019 4:14 PM EDT Respiratory Rate 20 10/13/2019 4:14 PM EDT Oxygen Saturation 91% 10/13/2019 4:14 PM EDT Inhaled Oxygen Concentration - - Weight - - Height - - Body Mass Index - - documented in this encounter Patient Instructions Patient InstructionsDavidNiki sanchezLISA - 10/13/2019 4:00 PM EDT Iodosorb Nursing to change dressing [...] Beef, chicken, fish Beans, Lentils, peanut butter Guamanian and regular yogurt Cheese, eggs Boost, Ensure [...] pressure related areas. Should here from our patient scheduler for follow up appointment and scheduling [...] taken care of by your physician or bond runner. 6. Avoid using any chemical or strong antiseptic solutions on your feet. Iodine, salicylic acid, corn/callus removers may burn the skin. documented in this encounter Progress Notes Niki Stokcton APRN - 10/13/2019 4:00 PM EDT Images from the original note were not included. [facility] Initial Consultation Note HPI: Mahin Ramos is a 64 [...] dressings. He has custom made shoes from [employer], he received in 09/2019. The medical history [...] Lives with of 45 years. Diagnostics: DONTAE's: none Imaging: MRI of left foot 08/2019 Pertinent [...] but does not have leg pain. PE: BP 153/68 Pulse 67 Temp 36.5 ??C (97.7 ??F) (Oral) Resp 20 SpO2 91% General: pleasant, 64 year old male in NAD. Mobility: Ambulates independently. Edema: 3 + to bilateral lower legs and feet. DP, PT pulses palpable. Varicosities: + to bilateral lower legs. Hemosiderin staining: + to right lower leg Stasis dermatitis: none. Callus: Significant moist to bilateral plantar. Nails: thick, short Wound location Measurement 10/13/19 (Initial) Wound Bed Exudate Periwound skin Odor Left Plantar 0.8 x 0.9 x 0.4 cm circumferential undermining of 0.1-0.2 cm Pale white, macerated. Moderate serous Moist callous none Right Plantar 0.6 x 0.9 x <0.1 cm Pale pink, not able to visualize entire wound bed Moderate serous Moist callous none Right Anterior Leg 0.7 x 0.4 x <0.1 cm Measurements (cm) Right Left Calf girth 37.5 cm 37.0 cm Ankle girth 24.0 cm 27.0 cm The following photo was taken: Left Plantar Right Plantar Right Anterior lower leg Wound treatment: Wound Location: Cleansed wound with NS. Analgesia: 2% topical Conservative sharp debridement of necrotic, devitalized tissue [...] He has no local signs of infection. Significant callous buildup despite use of custom made shoes. Dr. Gómez in for brief assessmentand recommended DONTAE's and TCPO2's to evaluate for blood flow and ability for wounds to heal. Will plan for follow up with Dr. Gómez in one week for possible bone biopsy. Will initiate Iodosorb for antimicrobial,debridment and exudate management, followed by Mepilex borders for moist wound healing. Verbal and written wound care instructions were provided. He/she will call with any questions or concerns. Wound care supplies ordered. Education: Discussed high protein diet Discussed commitment [...] Beef, chicken, fish Beans, Lentils, peanut butter Guamanian and regular yogurt Cheese, eggs Boost, Ensure [...] pressure related areas. Should here from our patient scheduler for follow up appointment and scheduling [...] taken care of by your physician or bond runner. 6. Avoid using any chemical or strong antiseptic solutions on your feet. Iodine, salicylic acid, corn/callus removers may burn the skin. Cc: Brian Fall APRN [address] [place] [address] PCP: Brian Fall APRN documented in this encounter Plan of Treatment Upcoming Encounters Date Type Specialty Care Team Description 12/11/2021 Appointment Radiology 12/11/2021 Office Visit Orthopaedics Marion Tavera APRN [facility] ORTHOPAEDIC SURG [place], [place] [address] (Wo rk) 01/15/2022 Appointment Radiology Stiven Cervantes MD [facility] Pulmonary Medici [place], [place] [address] (Wo rk) Scheduled Procedures Name [...] ulcer, right, with fat laye r exposed Traumatic open wound of right lower leg, initial encounter documented in this encounter Care Teams Home Care Scheduler Relationship Specialty Start Date End Date Brian Fall APRN PCP - General Internal Medicine 04/07/19 [address] [place] [phone] documented as of this encounter
--- OUTSIDE RECORDS SUMMARY | 2021-11-30 08:22 | XMS_ITS | Encounter Summary ---
:1955 Author Organization [facility] [place] [address] Care Team Providers Name Role Phone Brian Fall APRN Primary Care Provider Encounter Details Date Type Department Care Team Description 09/02/2019 Telephone Neurology at [facility] Jimenes, [facility] Jenn[place] [address] [facility] [phone] [place], [place] [address] (Wo rk) Social History Tobacco Use Types Packs/Day Years Used Date Current Every Day Smoker Cigars, Cigarettes 1 42 Smokeless Tobacco: Never Used Alcohol Use Standard Drinks/Week Comments Yes 24 (1 standard drink = 0.6 oz pure alcoh ol) Sex Assigned at Date Recorded Not on file documented as of this encounter Miscellaneous Notes Telephone Encounter - Shane Davalos - 09/02/2019 1:59 PM EDT 09/01 - Spoke with patient, could not find schedule openings for visit. Please follow up with patientto set up appointment documented in this encounter Plan of Treatment Upcoming Encounters Date Type Specialty Care Team Description 12/11/2021 Appointment Radiology 12/11/2021 Office Visit Orthopaedics Marion Tavera APRN [facility] ORTHOPAEDIC SURG [place], [place] [address] (Wo rk) 01/15/2022 Appointment Radiology Stiven Cervantes MD [facility] Pulmonary [place], [place] [address] (Wo rk) Scheduled Procedures Name [...] on filedocumented in this encounter Care Teams Exhibit Builder Relationship Specialty Start Date End Date Brian Fall APRN PCP - General Internal Medicine 04/07/[address] [place] [phone] documented as of this encounter
--- OUTSIDE RECORDS SUMMARY | 2021-11-30 08:22 | XMS_ITS | Encounter Summary ---
:1955 Author Organization [facility] [place] [address] Care Team Providers Name Role Phone Laura Cherry APRN Primary Care Provider Encounter Details Date Type Department Care Team Description 03/02/2019 Office Visit Neurology at [facility] Angelica Jimenes Hypertension, [facility] LISA E[place] [address] [facility] [phone] [place], [place] [address] Social History Tobacco Use Types [...] Sign Reading Time Taken Comments Blood Pressure 124/73 03/02/2019 1:52 PM EDT Pulse 54 03/02/2019 1:52 PM EDT Temperature - - Respiratory Rate - - Oxygen Saturation - - Inhaled Oxygen Concentration - - Weight 90.9 kg (200 lb 6.4 oz) 03/02/2019 1:52 PM With shoes EDT Height 176.5 cm (5' 9.5) 03/02/2019 1:52 PM Reported EDT Body Mass Index 29.17 03/02/2019 1:52 PM EDT documented in this encounter Patient Instructions Patient InstructionsSoAngelica spring APRN - 03/02/2019 2:00 PM EDT Please increase your aricept to 10 mg nightly. New pill strength has been sent to [facility] in [place]. EKG should be done after this visit. documented in this encounter Progress Notes Angelica Jimenes APRN - 03/02/2019 2:00 PM EDT [facility] FOLLOW-UP Patient presents with his . Interval History: Mr. Ramos is a 63 year old gentleman with pmhx of depression/anxiety, chronic etoh abuse, chronic low back pain with opioid abuse currently on methadone, COPD, and HTN presenting for follow-up. At his last visit Mr. Ramos was started on aricept 5mg nightly. Denies diarrhea or upset stomach. Denies any vivid dreams. States he sleeps 4-6 hours at night. Wakes feeling rested. Unsure if he ever got a sleep study. No CPAP machine at home. Reports ongoing memory changes. Will drive when he needs to. Has never gotten lost or forgotten his intended destination. Using a pill business planner and that has been working for him. Continues to go to the methadone clinic. He is interested in weaning. Has to drive to the clinic daily. Feels the pain is manageable at the moment. Continues to drink alcohol daily. Drinks a couple tall boys per day. Continues to smoke. Will smoke 1ppd. Occasionally will think about quitting. Thinks he does this out of boredom. States it can help him with his nerves as well. Smokes marijuana daily. Driven by pain and boredom. No falls in the past three months. Had a toe amputated in [place]. His little toe got infected and needed to be amputated. Denies any confusion/agitation. Unsure if he needed any medication for agitation in the hospital. Was admitted for a couple weeks. Did use a nicotine patch while admitted to the hospital. Didn't drink any etoh while in the hospital. Denies any complicated withdrawals from alcohol. Hospital kept him on his methadone. He was supposed to get a MRI in November. No records here, but may have done this at [place]. Impression: Mr. Ramos is a 63 year old gentleman who presents in follow-up. MOCA at today's visit notable for score of 17/30. He has been tolerating the aricept. Will increase to 10mg at today's visit. Reviewed role of medication and possible side effects. Will get EKG after clinic. He has not done a sleep study.He continues to smoke and drink alcohol. Counseled patient on the negative health effects of both habits. He is also smoking marijuana daily which can be contributing to his cognitive concerns. Will follow-up in 6 months. At least 16 minutes of this 30 minute visit was spent counseling patient as documented above. documented in this encounter Plan of Treatment Upcoming Encounters Date Type Specialty Care Team Description 12/11/2021 Appointment Radiology 12/11/2021 Office Visit Orthopaedics Marion Tavera APRN [facility] MEDICAL [facility] ORTHOPAEDIC SURG [place], [place] [address] (Wo rk) 01/15/2022 Appointment Radiology Stiven Cervantes MD [facility] Pulmonary Medici [place], [place] [address] (Wo rk) Scheduled Orders Name Type Priority Associated Diagnoses Order S chedule EKG 12 Lead ECG Routine Hypertension, unspecified ty pe Ordered: 03/02/2019 Scheduled Procedures Name Priority Associated Diagnoses Date/Time [...] as of this encounter Visit Diagnoses Diagnosis Hypertension, unspecified type documented in this encounter Care Teams Control Integration Engineer Relationship Specialty Start Date End Date Laura Cherry APRN PCP - General Family Medicine 03/20/17 04/06/19 [address] [place] [address] documented as of this encounter
--- OUTSIDE RECORDS SUMMARY | 2021-11-30 08:22 | XMS_ITS | Encounter Summary ---
:1955 Author Organization [facility] [place] [address] Care Team Providers Name Role Phone Laura Cherry APRN Primary Care Provider Encounter Details Date Type Department Care Team Description 06/12/2017 External Results [place] [facility] [place] [address] Pulmonary Medici [place], [place] [address] (Wo rk) Social History Tobacco [...] Tavera APRN [facility] ORTHOPAEDIC SURG [place], [place] [address] (Wo rk) 01/15/2022 Appointment Radiology Stiven Cervantes MD [facility] er Pulmonary Medici [place], [place] [address] (Wo rk) Scheduled Procedures Name [...] Esquivel, Understanding Action Plan 9:07 AM EDT) [facility] Note: Formatting of this note might be d ifferent from the original. Patient Goal: To experience less side ef fects than his past regimen of Peg and Ribavirin Timeframe to meet goal: 3 months of ther apy documented as of this encounter Procedures Procedure Name Priority Date/Time Associated Diagnosis Comme nts A1AT GENOTYPE PROFILE Routine 06/12/2017 Result s for this procedure are i n the results section . documented in this encounter Results A1AT Genotype Profile (06/12/2017) P athologist Signature A1AT Genotype [place] Comment: Carrier A1AT 126.3 Specimen (Source) Anatomical Location Collection Method / Collectio n Time Received Time / Laterality Volume Blood specimen (specimen) Historical Provider CHEMISTRY ORDERABLES documented in this encounter Visit Diagnoses Not on filedocumented in this encounter Care Teams Steam Oven Operator Relationship Specialty Start Date End Date Laura Cherry APRN PCP - General Family Medicine 03/20/17 04/06/[address] [place] [phone] documented as of this encounter
--- OUTSIDE RECORDS SUMMARY | 2021-11-30 08:22 | XMS_ITS | Encounter Summary ---
:1955 Author Organization [facility] [place] [address] Care Team Providers Name Role Phone Brian Fall APRN Primary Care Provider Encounter Details Date Type Department Care Team Description 10/14/2019 Notes Only Wound Care at [facility] [place] [address] Social History Tobacco Use Types Packs/Day Years Used Date Current Every Day Smoker Cigars, Cigarettes 1 42 Smokeless Tobacco: Never Used Alcohol Use Standard Drinks/Week Comments Yes 24 (1 standard drink = 0.6 oz pure alcoh ol) Sex Assigned at Date Recorded Not on file documented as of this encounter Progress Notes Anusha Rebollar LPN - 10/14/2019 11:05 AM EDT Wound supplies order from Leatha Rebollar LPN documented in this encounter Plan of Treatment Upcoming Encounters Date Type Specialty Care Team Description 12/11/2021 Appointment Radiology 12/11/2021 Office Visit Orthopaedics Marion Tavera APRN [facility] DR ORTHOPAEDIC SURG [place], [place] [address] (Wo rk) 01/15/2022 Appointment Radiology Stiven Cervantes MD [facility] Pulmonary Medici [place], [place] [address] (Wo rk) Scheduled Procedures Name [...] on filedocumented in this encounter Care Teams Public Relations Associate Relationship Specialty Start Date End Date Brian Fall APRN PCP - General Internal Medicine 04/07/[address] [place] [phone] documented as of this encounter
--- OUTSIDE RECORDS SUMMARY | 2021-11-30 08:22 | XMS_ITS | Encounter Summary ---
:1955 Author Organization [facility] [place] [address] Care Team Providers Name Role Phone Brian Fall APRN Primary Care Provider Encounter Details Date Type Department Care Team Description 09/02/2019 External Results Medical Records Provider, [place] [address] Social History Tobacco Use Types Packs/Day [...] Tavera APRN [facility] ORTHOPAEDIC SURG [place], [place] [address] (Wo rk) 01/15/2022 Appointment Radiology Stiven Cervantes MD [facility] Pulmonary Medici [place], [place] [address] (Wo rk) Scheduled Procedures Name [...] Name Priority Date/Time Associated Diagnosis Comme nts SURGICAL PATHOLOGY Routine 09/02/2019 Results f or this SCAN procedure are i n the results section . documented in this encounter Results Scan Doc: Surgical Pathology (09/02/2019) Narrative This result has an attachment that is no t available. Historical Provider MD MEDIA MGR SCAN EXT ORDR/RSLT documented in this encounter Visit Diagnoses Not on filedocumented in this encounter Care Teams Construction Management Instructor Relationship Specialty Start Date End Date Brian Fall APRN PCP - General Internal Medicine 04/07/[address] [place] [phone] documented as of this encounter
--- OUTSIDE RECORDS SUMMARY | 2021-11-30 08:22 | XMS_ITS | Encounter Summary ---
:1955 Author Organization [facility] [place] [address] Care Team Providers Name Role Phone Laura Cherry APRN Primary Care Provider Encounter Details Date Type Department Care Team Description 01/13/2019 Telephone [place]ol[place]ology [place] [address] Social History Tobacco Use Types Packs/Day [...] 12/11/2021 Office Visit Orthopaedics Marion Tavera APRN [facility] ORTHOPAEDIC SURG [place], [place] [address] (Wo rk) 01/15/2022 Appointment Radiology Stiven Cervantes MD [facility] er Pulmonary Medici nelly [place], [place] [address] (Wo rk) Scheduled Procedures Name [...] Understanding Action Plan 9:07 AM EDT) [facility] Note: Formatting of this note might be d ifferent from the original. Patient Goal: To experience less side ef fects than his past regimen of Peg and Ribavirin Timeframe to meet goal: 3 months of ther apy documented as of this encounter Visit Diagnoses Not on filedocumented in this encounter Care Teams Glass Embosser Relationship Specialty Start Date End Date Laura Cherry APRN PCP - General Family Medicine 03/20/17 04/06/[address] [place] [id number] documented as of this encounter
--- OUTSIDE RECORDS SUMMARY | 2021-11-30 08:22 | XMS_ITS | Encounter Summary ---
:1955 Author Organization [facility] [place] [address] Care Team Providers Name Role Phone Brian Fall APRN Primary Care Provider Reason for Referral Diagnostic Test (Routine) - Closed Specialty Diagnoses / Procedures Referred By Contact Refer red To Contact Radiology Diagnoses Subdural hematoma Beny Ta APRN [facility] Rad Ct Scan Procedures CT Head wo Contrast (Generic) [facility] [address] [place] [address] Referral ID Status Reason Start Date Expiration Date Visits V isits Requested Authorized [id number] Closed Specialty 04/09/2019 06/07/2019 1 1 Service Requested Reason for Visit Reason Comments Fall SDH from [place] Encounter Details Date Type Department Care Team Description 04/07/2019 Emergency Emergency Department Sparkle August MD [facility] [place] [address] Subdural hematoma [facility] Jasmyne Deng MD [facility] [place] [address] [place] [address] Social History Tobacco Use Types Packs/Day Years Used Date Current Every Day Smoker Cigars, Cigarettes 1 42 Smokeless Tobacco: Never Used Alcohol Use Standard Drinks/Week Comments Yes 24 (1 standard drink = 0.6 oz pure alcoh ol) Sex Assigned at Date Recorded Not on file documented as of this encounter Last Filed Vital Signs Vital Sign Reading Time Taken Comments Blood Pressure 125/66 04/07/2019 1:30 PM EST Pulse 62 04/07/2019 12:30 PM EST Temperature 37 ??C (98.6 ??F) 04/07/2019 1:30 PM EST Respiratory Rate 11 04/07/2019 12:30 PM EST Oxygen Saturation 94% 04/07/2019 1:30 PM EST Inhaled Oxygen Concentration - - Weight - - Height - - Body Mass Index - - documented in this encounter Discharge Instructions Discharge InstructionsJasmyne Deng MD - 04/07/2019 12:48 PM EST NON-OPERATIVE HEAD INJURY/BLEED DISCHARGE INSTRUCTIONS PRESCRIPTION INSTRUCTIONS: Please see the medication reconciliation list on this discharge summary for a current list of your medications. WHEN TO SEEK MEDICAL CARE: New neurologic symptoms - Worsening headaches not controlled with your pain medication - Drowsiness, confusion, and lethargy - Visual changes - Difficulty speaking or slurred speech - Facial droop - New weakness or sensory changes - New unsteadiness when walking - Seizures DIET: - You may resume your usual diet. . ACTIVITY: - Avoid activities that are physically demanding or require a lot of concentration. They can make your symptoms worse and slow your recovery. FOLLOW UP PLAN: Appointment: Please follow-up in the Neurosurgery Clinic in ? 2 weeks or ? 4-6 weeks with a Neurosurgery Associate Provider. Please call the Neurosurgery Office at [phone] if you do not receive a scheduled appointment within two weeks Imaging: ? No Imaging required at follow-up. ? Head CT Chest xray revealed the following: follow up with PCP in 1-2 days. 1. Chronic appearing airways thickening and interstitial prominence, although superimposed acute pathology cannot be excluded. 2. Unexpected finding: RIGHT infrahilar 1 cm lung nodule. Recommend nonemergent documented in this encounter Medications at Time [...] documented as of this encounter Progress Notes Jennifer Delgado RN - 04/07/2019 2:06 PM EST VINCENT Montgomery reported to this data analyst report writer patient did not want to wait for oxygen to be delivered and was discharged. This data analyst report writer called Kelsey at [employer] and made her aware patient did not want to waitfor oxygen and was discharged. Rocio Ortiz MSW - 04/07/2019 10:44 AM EST SOCIAL WORK NOTE PAVITHRA met with Pt at request of nursing for d/c planning support. SW introduced self, role; services accepted. SW spoke with Pt and Pt's regarding any concerns they may have at the time of d/c and returninghome. It was stated that the Pt has had VNA in the past and that the family does not feel continued care is needed at this time. SW discussed advanced directives with the Pt and his . The Pt stated that he was unsure of what that document was, but then also stated that he thinks he has completed one. SW did some education with the Pt and his around Advanced Directives and the process. SW provided the Pt and his with the [place] AD booklet for review and completion. Pt's requested some support around a dementia diagnosis. SW provided the Pt's with local resources for family caregivers. SW provided resources at [facility] and also around [facility] as the Pt and Pt's are closer to that area. Pt's was also provided with the [employer] brochure and the [place] 211 brochure. SW introduced the incident that occurred last night and what had brought the Pt into the ED. The Pt stated that he was drinking vodka last night and does not often drink hard liquor. SW discussed the Pt's drinking with him at this time and he denied any issues. Pt stated he usually has 2-3 beers/night. No other needs were identified at this time for the Pt's successful d/c. VITALIY Lopez Clinical Ring Rolling Machine Operator ED CDU SDP C: [phone] Jennifer Horn RN - 04/07/2019 10:28 AM EST Case Management was asked to see patient by direct care RN to assess for needs prior to discharge. Patient sleeping, information provided by , Consuelo Cordero. states patient was diagnosed with dementia one year ago. Patient is on home oxygen, has been on oxygen for a year. She states he has just started using it again. Supplier is [employer]. This data analyst report writer called [employer], spoke with Kelsey [phone]. On 03/31/19 an M tank was delivered, this is a back up tank. Patient has a 5L concentrator and B tanks. Flow rate: 2L per minute continuous. [employer] will deliver a portable oxygen tank between 1-4PM for discharge. The following resources were provided: Phone number for [employer] [place] 211 brochure [employer] brochure Reduce Risk of Falling brochure states she is comfortable taking patient home if he is not dizzy. Direct Care RN made aware. CATERING AND EVENTS MANAGER made aware of social needs of patient and . CM will continue to follow and assist with discharge planning and coordination of care as indicated. Beny Ta APRN - 04/07/2019 7:22 AM EST Neurosurgery Brief Progress Note 63 y.o. male with PMH of polysubstance abuse, HTN, Hep C, depression, COPD s/p intoxicated fall fromstanding who was found to have small parafalcine SDH. - Repeat Head CT this AM stable. No change in known hemorrhage. - Follow-up appointment with a Neurosurgery Associate Provider to be arranged for 4-[address] weeks with a Head CT that has been ordered. - Discharge instructions placed in multidisciplinary instructions section - No Keppra - Patient should remain off of anticoagulation and antiplatelets for one week. - Patient okay for discharge from a Neurosurgery standpoint We will sign off at this time, pager [phone]. documented in this encounter H&P Notes Sen Hester MD - 04/07/2019 6:29 AM EST Patient Name: Mahin Ramos Patient Age: 63 y.o. Birthdate: 1955 Admit date: 04/07/2019 Attending Physician: Sparkle Dailey MD Trauma Service- Admission Note Patient Name: Mahin Ramos : [id number] MR#: [id number] 04/07/2019 Hospital Day 0 days Problem List: There are no hospital problems to display for this patient. Active Non-Hospital Problems Diagnosis ??? Avascular necrosis of humeral head ??? Pain in left shoulder ??? S/P L TKA 12/13/15 Dr. Mallory ??? Avascular necrosis of bone ??? Cirrhosis ??? Ankle fracture, left ??? Polysubstance abuse ??? Avascular necrosis bilateral knees ??? Confusion ??? Community acquired pneumonia ??? Imbalance ??? Hepatitis C ??? Alcohol dependence ??? Anixety D/O NOS ??? ADHD NOS ??? Chronic back pain ??? Major depressive disorder, single episode, unspecified Past Medical and Surgical History: Past Medical History: Diagnosis Date ??? COPD (chronic obstructive pulmonary disease) ??? Depression ??? GERD (gastroesophageal reflux disease) ??? Hepatitis C ??? HTN (hypertension) Past Surgical History: Procedure Laterality Date ??? PRO TOTAL KNEE ARTHROPLASTY Left 12/13/2015 @TOTAL KNEE ARTHROPLASTY performed by Gordon Mallory MD at [facility] MAIN OR ??? PRO UPPER GI ENDOSCOPY, DIAGNOSTIC Bilateral 08/17/2015 EGD, UPPER GI ENDOSCOPY performed by Trev Hong MD at [facility] ENDOSCOPY ??? REVISION TOTAL HIP ARTHROPLASTY bilateral for hip AVN ??? SPINE SURGERY Allergies: Allergies Allergen Reactions ??? Morphine Other (See Comments) STATES THAT IT DOES NOT TAKE HIS PAIN AWAY Prior to Admission Medications: (Not in a hospital admission) Hospital Medications: No current [facility]-ordered facility-administered medications on file. Current Outpatient Medications Ordered in [facility] Medication Sig Dispense Refill ??? donepezil (ARICEPT) [...] mg Tablet Take 2 tablets by mouth as needed. ??? multivitamin (THERAGRAN) tablet Take 1 tablet by mouth daily. Family History: Family History Problem Relation Age of Onset ??? Cancer Father ??? Osteoarthritis Mother ??? Cancer Paternal Uncle ??? Cancer Paternal Grandmother Social History and Habits: Social History Socioeconomic History ??? Marital status: Spouse name: Not on file ??? Number of children: Not on file ??? Years of education: Not on file ??? Highest education level: Not on file Occupational History ??? Not on file Social Needs ??? Financial resource strain: Not on file ??? Food insecurity: Worry: Not on file Inability: Not on file ??? Transportation needs: Medical: Not on file Non-medical: Not on [...] on file Comment: deferred Lifestyle ??? Physical activity: Days per week: Not on file Minutes per session: Not on file ??? Stress: Not on file Relationships ??? Social connections: Talks on phone: Not on file Gets together: Not on file Attends sikh service: Not on file Active member of club or organization: Not on file Attends meetings of clubs or organizations: Not on file Relationship status: Not on file ??? Intimate partner violence: Fear of current or ex partner: Not on file Emotionally abused: Not on file Physically abused: Not on file Forced sexual activity: Not on file Other Topics Concern ??? Not on file Social History Narrative [place] 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 Pt has been exposed to wood dust. No TB Exposure. Pt currently has lived in his home for 30 years, hardwood floor, heated by oile, hot air. Pt has long haired dog. No VNA services at this time. ID: 63 y.o. Male presents to [facility] with fall History of Present Illness: HPI 63 yo male fell while intoxicated with elevated ethanol level Indicates he has not withdrawn from ethanol in the past Seemed to be mechanical fall, no presyncopal sx 5 min LOC and then confusion now cleared Taken to [facility] Neurologically intact CT scan with parafalcine SDH Review of Systems: Review of Systems Physical Exam: Last Set of Vitals and range of vitals over past 24 hours: Last value Range last 24 hrs Temperature Temp: 37.2 ??C (99 ??F) Temp: [37.2 ??C (99 ??F)] Heart Rate Heart Rate: 78 Heart Rate: [60-82] Blood Pressure BP: 130/73 BP: (115-166)/(70-95) Respiratory Rate Resp: 12 Resp: [9-22] SpO2 SpO2: 96 % SpO2: [88 %-98 %] Physical Exam Awake, alert, appropriate GCS 15 EOM normal, tongue midline Lungs cta Cor rrr no m Abd soft Neuro 5/5 strength hand grasp, bicep, tricep, ankle dorsi and plantar flexion bilaterally Laboratory (Last 24 Hours): Recent Results (from the past 24 hour(s)) Rapid Drug Screen, Urine (BRITTNEE Request) Result Value Ref Range BRITTNEE Conf Requested No BRITTNEE Requested See Comment Urinalysis with reflex Culture Result Value Ref Range Glucose UA Negative Negative mg/dL Protein UA Negative Negative mg/dL Bilirubin UA Negative Negative mg/dL Urobilinogen UA Normal Normal mg/dL pH UA 7.5 5.0 - 8.0 Blood UA Negative Negative mg/dL Ketones UA Negative Negative mg/dL Nitrite UA Negative Negative Leukocytes UA Negative Negative mcL Appearance UA Clear Clear Spec Stateline UA 1.009 1.002 - 1.030 Color UA Yellow Yellow Culture Reflexed No Rapid Drug Screen w/o Confirmation, Urine Result Value Ref Range U Barbiturates Screen None Detected None Detected U Benzodiazepines Screen None Detected None Detected U Cocaine Screen None Detected None Detected U Methadone Metabolites Screen Presumptive Pos (A) None Detected U Opiate Screen None Detected None Detected U Cannabinoid Screen Presumptive Pos (A) None Detected U Oxycodone Screen None Detected None Detected U Buprenorphine Screen None Detected None Detected U Fentanyl Screen None Detected None Detected U Tricyclics Screen None Detected None Detected U Ethanol Screen Positive (A) None Detected U Amphetamines Screen None Detected None Detected U Adulterants Screen None Detected None Detected Radiology: CXR - 1 cm right lung nodule CT Head- small parafalcine SDH without shift or mass effect CT neck - no gross fx or malalignment, extensive degenerative change (final read pending) Assessment/Plan: Isolated parafalcine SDH with normal neurologic examination Neurosurgery evaluation Follow up CT per NS C collar in place - will do clinical exam in am and attempt to remove in am No history of ethanol withdrawal but will need to be observed CXR with 1 cm right pulmonary nodule that will be followed up This was discussed with and patient and told will need outpatient F/U to evaluate for lung cancer Potentially will be able to be discharged from the ED [x] I saw and evaluated the patient. I reviewed Dr. Stern's note and agree with the findings and plans as documented SEN HESTER MD 04/07/2019 documented in this encounter ED Notes Valentina Ellsworth RN - 04/07/2019 1:55 PM EST Pt HR in the 40's. Pt reports soreness at back of head otherwise denies any other symptoms. While ambulating patient, HR 60-70's and SPO2 96% on RA. MD aware. Valentina Ellsworth RN - 04/07/2019 1:50 PM EST Pt did not want to wait for oxygen to be delivered to room. MD aware. Plan for ambulation test. Valentina Ellsworth RN - 04/07/2019 1:36 PM EST Pt ambulatory with steady gait to bathroom. Pt changed into his own clothing. Jasmyne Deng MD - 04/07/2019 12:44 PM EST Patient Name: Mahin Ramos Patient Age: 63 y.o. Birthdate: 1955 Admit date: 04/07/2019 Attending Physician: Jasmyne Deng MD 63 YO M presented after a fall with SDH and signed out to me pending repeat imaging and Trauma/NSG clearance. Patient's CT imaging revealed stable SDH. Trauma/NSG cleared patient for discharge. Patient ambulated with steady gait and tolerated PO intake. He was evaluated by [facility] who provided him with home resources. His family reported they felt safe taking the patient home and he was provided with fall precautions. Of note, Chest xray imaging was reviewed which revealed: 1. ??Chronic appearing airways thickening and interstitial prominence, although superimposed acute pathology cannot be excluded. 2. ??Unexpected finding: RIGHT infrahilar 1 cm lung nodule. Patient was informed of findings and advised follow up with PCP. He is on home oxygen and is currently at baseline from a respiratory standpoint. Jasmyne Deng MD 04/07/19 1248 Valentina Miner RN - 04/07/2019 12:37 PM EST MD at bedside discussing dispo with patient and family. Valentina Ellsworth RN - 04/07/2019 12:07 PM EST Pt's son states, Should I be keeping him up all night. He seems to be falling asleep constantly. aware. Valentina Ellsworth RN - 04/07/2019 10:49 AM EST Pt reporting posterior headache. aware. Pt able to eat breakfast with no complications. Valentina Ellsworth RN - 04/07/2019 10:20 AM EST rehab department manager and social media strategist at bedside discussing dispo w/ pt. Valentina Ellsworth RN - 04/07/2019 9:22 AM EST Pt ambulated with steady gait to the bathroom. Valentina Miner RN - 04/07/2019 9:15 AM EST c-collar cleared by Trauma team. Valentina Miner RN - 04/07/2019 8:49 AM EST Trauma at bedside discussing plan of care with patient. Valentina Miner RN - 04/07/2019 8:02 AM EST Pt resting with eyes closed at this time. Sparkle Dailey MD - 04/07/2019 4:54 AM EST Chief Complaint Patient presents with ??? Fall SDH from [facility] HPI: Mahin Ramos is a 63 y.o. male who presents to the ED with subdural hematoma. Mr. Ramos is a 63-year-old male who presents the emergency department status post fall from standing. He was drinking heavily this morning more than 4 beers, when walking to his bedroom he lost his balance and fell backwards and struck his head. His heard him fall and states that he had some LOC for a brief period in about 5 minutes of confusion. He was taken to [facility] where he had a CT scan of his head and C-spine revealing a small subdural hemorrhage. Call levels 1600 at that time. She does not fully recall the event. He can planes of mild headache but denies any other symptoms. Denies abdominal or chest pain. He does not think that there was a syncopal episode prior to this happening however he was intoxicated at the time. Patient was transferred here for trauma evaluation Past Medical History/Problem List: Past Medical History: Diagnosis Date ??? COPD (chronic obstructive pulmonary disease) ??? Depression ??? GERD (gastroesophageal reflux disease) ??? Hepatitis C ??? HTN (hypertension) Patient Active Problem List Diagnosis Code ??? [...] fracture, left S82.892A ??? Cirrhosis K74.60 ??? Avascular necrosis of bone M87.00 ??? S/P L TKA 12/13/15 Dr. Mallory Z96.659 ??? 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 Pain in left shoulder M25.512 Medications: Current Facility-Administered Medications Medication Dose Route Frequency Provider Last Rate Last Dose ??? ondansetron (ZOFRAN) injection 4 mg 4 mg Intravenous Once Sparkle Dailey MD ??? ondansetron (ZOFRAN) 4 mg/2 mL injection Current Outpatient Medications Medication Sig Dispense Refill ??? donepezil (ARICEPT) [...] mg Tablet Take 2 tablets by mouth as needed. ??? multivitamin (THERAGRAN) tablet Take 1 tablet by mouth daily. Allergies: Allergies Allergen Reactions ??? Morphine Other (See Comments) STATES THAT IT DOES NOT TAKE HIS PAIN AWAY Social History: Social History Tobacco Use ??? Smoking status: Current Every Day Smoker Packs/day: 1.00 Years: 42.00 Pack years: 42.00 Types: Cigars, Cigarettes ??? Smokeless tobacco: Never Used Substance Use Topics ??? Alcohol use: Yes Alcohol/week: 24.0 - 25.0 standard drinks Types: 3 - 4 Cans of beer, 21 Standard drinks or equivalent per week Family History: Family History Problem Relation Age of Onset ??? Cancer Father ??? Osteoarthritis Mother ??? Cancer Paternal Uncle ??? Cancer Paternal Grandmother ROS: Constitutional- No fevers or chills, Cardiac - No chest pain, Abdominal - No abdominal pain or vomiting, Back - No back pain and All other review of systems negative except as noted here and in HPI Physical Exam: I have reviewed the vital signs and nursing notes. Physical Exam BP (!) 166/95 Pulse 74 Temp 37.2 ??C (99 ??F) (Oral) Resp 19 SpO2 98% General: Alert oriented and in no acute distress HEENT: Pupils are equal round reactive to light and accommodating. TMs are clear. Oropharynx is clear and mucous membranes are moist. No racoon eyes. No diego sign, no nasal septal hematoma Neck: Mild lower C-spine tenderness to palpation collar placed back on patient, trachea is midline nor tenderness, no stridor CV: Normal s1s2, no murmurs, gallops, nor rubs. Normal pulses throughout. No bruits. Pulm: Normal work of breathing. Normal inspiratory and expiratory phases. Clear to auscultation throughout. No accessory muscle use. No chest wall ttp, no crepitance, no step offs Abd: soft, non-tender, non-distended, no masses, no rebound, positive bowels sounds Neuro: CN II-XII intact. sensation intact throughout. 2/4 symmetric DTRs. Normal speech. Back: no c/t/l spine ttp, no step offs, no deformities, scattered contusions on upper buttocks M/S: 5/5 symmetric strength. No tenderness nor deformity to extremities Skin: warm and dry. No abrasions, no lacerations Psych: Normal thought and memory. ED Course: ED Course: On the emergency department patient was seen by trauma surgery as well as neurosurgery. ED Vitals: Patient Vitals for the past 8 hrs: BP Temp Temp src Pulse Resp SpO2 04/07/19 0345 -- -- -- 74 19 98 % 04/07/19 0315 (!) 166/95 -- -- 74 22 98 % 04/07/19 0300 144/80 -- -- 70 14 97 % 04/07/19 0245 139/88 -- -- 75 13 98 % 04/07/19 0230 121/75 -- -- 82 11 98 % 04/07/19 0215 115/74 -- -- 72 13 94 % 04/07/19 0200 128/73 -- -- 72 11 97 % 04/07/19 0145 132/89 37.2 ??C (99 ??F) Oral 78 10 (!) 88 % 04/07/19 0134 144/72 -- -- 77 9 96 % Medical Decision Making Mahin Ramos is a 63 y.o. male who presents to the ED with subdural hemorrhage in the setting of afall from stand he was placed back into a c-collar given that he was slightly intoxicated and had some tenderness of his C-spine. He will repeat head CT at 6 AM and a repeat sober evaluation by trauma with an attempt to clear his C-spine at that time. Diagnosis: Subdural hemorrhage Disposition: pEnding Condition: satisfactory MD Asim Acuna Jessica L, MD 04/07/19 0458 Ross Andres RN - 04/07/2019 3:52 AM EST Pt vomitted, able to control airway w/ c-collar in place Ross Andres RN - 04/07/2019 3:35 AM EST Pt allowed to sit upright, no restrictions at this time, c-collar remains, per surgery team. Pt mich re-evaluated at 6:00, along w/ head CT documented in this encounter Miscellaneous Notes ED Triage - Ross Andres RN - 04/07/2019 2:17 AM EST Pt arrives from [facility] for trauma and Neurosurgery consult following fall at home, CT = SDH, ETOH use, C-Collar placed on arrival for C-spine tenderness. Pt speaking in clear, logical and full sentences. Respiratory rate regular and unlabored. Skin appropriate color, warm and dry. Alert & oriented x4 Consult Note - Tyson Stern MD - 04/07/2019 1:47 AM EST TRAUMA & ACUTE SURGICAL CARE CONSULT Patient Name: Mahin Ramos Level of Activation: Consult MR#: [id number] [ ]Scene Call or [x]Hospital Transfer : [id number] CC/MECHANISM OF INJURY: 63 y.o. Male s/p fall from standing HISTORY OF PRESENT ILLNESS: Mahin Ramos is a 63 y.o. male presents to [facility] s/p fall from standing. Description of events leading up to injury includes: Patient was drinking this evening more than his normal amount (>4 beers). When walking to his bedroom he fell backwards striking his head. Per his , there was +LOC followed by about 5 minutes of confusion.He was taken to an OSH where work up revealed small subdural hemorrhage. Alcohol level was measured at 1600. He was subsequently transferred to [facility] Primary survey revealed: intact airway, equal breath sounds/respirations, present 2+ peripheral pulses with stable vital signs and no signs of bleeding, GCS 15 (6 - Follows simple motor commands, 5 - Alert and oriented, 4 - Opens eyes on own), and complete exposure. Secondary survey is as follows. PAST MEDICAL AND SURGICAL HISTORY: Past Medical History: Diagnosis Date ??? COPD (chronic obstructive pulmonary disease) ??? Depression ??? GERD (gastroesophageal reflux disease) ??? Hepatitis C ??? HTN (hypertension) chronic etoh abuse chronic low back pain with opioid abuse currently on methadone?? Past Surgical History: Procedure Laterality Date ??? PRO TOTAL KNEE ARTHROPLASTY Left 12/13/2015 @TOTAL KNEE ARTHROPLASTY performed by Gordon Mallory MD at [facility] MAIN OR ??? PRO UPPER GI ENDOSCOPY, DIAGNOSTIC Bilateral 08/17/2015 EGD, UPPER GI ENDOSCOPY performed by Trev Hong MD at [facility] ENDOSCOPY ??? REVISION TOTAL HIP ARTHROPLASTY bilateral for hip AVN ??? SPINE SURGERY ALLERGIES: Allergies Allergen Reactions ??? Morphine Other (See Comments) STATES THAT IT DOES NOT TAKE HIS PAIN AWAY MEDICATIONS: (Not in a hospital admission) FAMILY HISTORY: non-contributory in any family member SOCIAL HISTORY: Alcohol: equivalent of 4 beers a day. no hx of withdrawal Tobacco: 1 PPD Drug: no history of illicit drug use REVIEW OF SYSTEMS: complete 10 system ROS performed with pertinent findings below. Pertinent items are noted in HPI. PHYSICAL EXAM: VITALS: Most Recent Vitals: 04/07/19 0145 BP: 132/89 Pulse: 78 Resp: 10 Temp: 37.2 ??C (99 ??F) SpO2: (!) 88% GENERAL: alert, awake and no apparent distress HEAD: Posterior scalp hematoma FACE: Pupils: equal, round, reactive to light, no periorbital ecchymoses; Tympanic Membranes: not visualized; Midface: no tenderness, no swelling, no contusions, no lacerations and no abrasions over entire face Oropharynx: blood in oropharynx , moist mucous membranes, no lacerations, no malocclusion and no chipped or missing teeth NECK: no tenderness to palpation, trachea midline, no masses, no swelling, no contusions and no abrasions LUNG: equal, clear breath sounds bilaterally and no crepitus CARDIAC: Regular rate and rhythm or without murmur or extra heart sounds ABDOMEN/GI: soft, non-tender, non-distended, no abrasions and no contusions PELVIS: stable to AP and/or lateral compression RECTAL: Deferred EXTREMITIES: normal and symmetric movement, normal range of motion, no joint swelling SPINE: no deformity, no stepoffs, chronic pain in thoracic SKIN: no lacerations, abrasions or contusions on complete skin exam NEURO: Mental Status: awake and alert, oriented to person, place Cranial Nerves: CN II - XII intact Motor: normal 5/5 strength in all tested muscle groups Sensory: no sensory deficits noted FAST: ?[ ] Attending staff present ?[x] Attending staff NOT present ?Right Upper Quadrant ??[x] No fluid ??[ ] Fluid ??Left Upper Quadrant ??[x] No fluid ??[ ] Fluid ??Pericardium ??[x] No fluid [ ] Fluid ??Pelvis ??[x] No fluid ??[ ] Fluid ??Right Lung ??[x] No pneumo ??[ ] Pneumo ??Left Lung ??[x] No pneumo ??[ ] Pneumo ?? LABORATORY: No results found for this or any previous visit (from the past 24 hour(s)). RADIOLOGY: CXR - Pending CT Head/ C-Spine - FINDINGS: HEAD: Nonspecific patchy bihemispheric white matter hypodensity may be sequela of chronic microangiopathy although other etiologies are not excluded. Prominent CSF spaces commensurate with parenchymal atrophy, central greater than cortical. Small amount of parafalcine subdural hemorrhage anteriorly. No significant mass effect appreciated. Included paranasal sinuses appear well aerated. Included mastoid air cells appear well-aerated. Calvarium appears intact. Nonspecific small lytic lesion within the RIGHT frontal bone, with a few other scattered tiny foci. Extracalvarial soft tissues tissue swelling at the dorsal vertex eccentric to the RIGHT. CERVICAL SPINE: Patient motion artifact degrades image quality of the examination rendering suboptimal assessment; within these confines: No obvious evidence of acute traumatic malalignment appreciated. No grossly displaced macrofracture identified; motion degradation limits assessment for potential microfracture. Unremarkable prevertebral soft tissues. Multilevel spondylosis, with varying degrees of central spinal canal and neural foraminal narrowing. IMPRESSION: 1. Small amount of parafalcine subdural hemorrhage anteriorly. 2. Scattered small lytic lesions within the calvarium, nonspecific; correlate with any history of or concern for malignancy. 3. Motion degraded cervical spine examination; no grossly displaced macrofracture or obvious malalignment identified; consider repeat examination as warranted. Incidental Radiographic Findings: 1. Scattered small lytic lesions within the calvarium, Procedures Performed: Intubation: No Chauhan Cath: No Central Line: No Chest Tube: No Sutures: No Other: Assessment/Summary of Injuries: 63 y.o. male s/p fall from standing. Injuries identified on primary and secondary survey include: 1. Small amount of parafalcine subdural hemorrhage anteriorly Plan: ?? Repeat head CT per neurosurgery at 6am ?? Will wait for EtOH to clear and attempt to clear c-spine in AM Tyson Stern MD 04/07/2019 Consult Note - Luna Funez, TELEPHONE QUOTATION CLERK - 04/07/2019 1:45 AM EST Neurosurgery Inpatient Consultation Note Date & Time of Consult: 04/07/2019 1:45 AM Referring Service: Emergency Medicine Referring Attending: Dr. Dailey Neurosurgery Attending: Dr. Joe Place of Consult: [id number] ID: Name: Mahin Ramos, 63 y.o. male Admission Date: 04/07/2019 CC: SDH HPI: This is a 63 y.o. male with PMH of polysubstance abuse, HTN, Hep C, depression, COPD who we are asked by Dr. Dailey to evaluate for SDH s/p intoxicated GLF. Patient reports he had too much to drink when he fell backwards striking his head while walking into his bedroom. (+) LOC per OSH report followed by a period of confusion that lasted approximately 5 minutes. He was taken to an OSH ED where he was found to have a small parafalcine SDH and transferred for further evaluation and management. He is complaining of a mild headache. Denies nausea, vomiting, numbness, weakness, paresthesias, difficulties with balance, visual or auditory symptoms. Denies bowel or bladder symptoms. No history of anticoagulation or antiplatelets. PMH: Past Medical History: Diagnosis Date ??? COPD (chronic obstructive pulmonary disease) ??? Depression ??? GERD (gastroesophageal reflux disease) ??? Hepatitis C ??? HTN (hypertension) Past Surgical History: Procedure Laterality Date ??? PRO TOTAL KNEE ARTHROPLASTY Left 12/13/2015 @TOTAL KNEE ARTHROPLASTY performed by Gordon Mallory MD at [facility] [place] MAIN OR ??? PRO UPPER GI ENDOSCOPY, DIAGNOSTIC Bilateral 08/17/2015 EGD, UPPER GI ENDOSCOPY performed by Trev Hong MD at [facility] [place] ENDOSCOPY ??? REVISION TOTAL HIP ARTHROPLASTY bilateral for hip AVN ??? SPINE SURGERY Medications: No current facility-administered medications on file prior to encounter. Current Outpatient Medications on File Prior to Encounter Medication Sig Dispense Refill ??? donepezil (ARICEPT) [...] mg Tablet Take 2 tablets by mouth as needed. ??? multivitamin (THERAGRAN) tablet Take 1 tablet by mouth daily. Scheduled Meds: Continuous Infusions: PRN Meds:. Allergies: Allergies Allergen Reactions ??? Morphine Other (See Comments) STATES THAT IT DOES NOT TAKE HIS PAIN AWAY Family Hx: Family History Problem Relation Age of Onset ??? Cancer Father ??? Osteoarthritis Mother ??? Cancer Paternal Uncle ??? Cancer Paternal Grandmother Social Hx: Social History Socioeconomic History ??? Marital status: Spouse name: Not on file ??? Number of children: Not on file ??? Years of education: Not on file ??? Highest education level: Not on file Occupational History ??? Not on file Social Needs ??? Financial resource strain: Not on file ??? Food insecurity: Worry: Not on file Inability: Not on file ??? Transportation needs: Medical: Not on file Non-medical: Not on [...] on file Comment: deferred Lifestyle ??? Physical activity: Days per week: Not on file Minutes per session: Not on file ??? Stress: Not on file Relationships ??? Social connections: Talks on phone: Not on file Gets together: Not on file Attends sikh service: Not on file Active member of club or organization: Not on file Attends meetings of clubs or organizations: Not on file Relationship status: Not on file ??? Intimate partner violence: Fear of current or ex partner: Not on file Emotionally abused: Not on file Physically abused: Not on file Forced sexual activity: Not on file Other Topics Concern ??? Not on file Social History Narrative [place] 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 Pt has been exposed to wood dust. No TB Exposure. Pt currently has lived in his home for 30 years, hardwood floor, heated by oile, hot air. Pt has long haired dog. No VNA services at this time. Vitals: There were no vitals filed for this visit. Physical Exam: -Gen: NAD. Lying flat, full spine precautions -HEENT: Cervical collar. ATNC. No perimastoid or periorbital bruising. No rhinorrhea or otorrhea. -CV: RRR -Resp: Even, unlabored, CTA bilaterally -GI: Soft, non-tender, non-distended -Neuro: Mental Status/Cognitive: Awake, alert, oriented x3 GCS: 15 Speech: Fluent, appropriate. Naming and repetition intact. Cranial Nerves: PERRL 3mm reactive bilaterally CN II - Visual acuity and moreau grossly intact CN III, IV, - EOMI CN V - Sensation intact in V1,2 and 3 distributions CN VII - No facial asymmetry/droop CN VIII - Intact hearing bilaterally to finger rub CN IX, X - Palate and uvula midline CN XI - Trapezius 5/5 bilat CN XII - Tongue midline Tone: Normal Power: No pronator drift Segment Muscle Action Left Right C5 Deltoid Shoulder Abduction 5 5 C6 Biceps Elbow flexion 5 5 C6 Extensor carpi radialis Wrist extension 5 5 C7 Triceps Elbow extension 5 5 C8 Finger flexors Grasp 5 5 T1 Interossei Finger abduction 5 5 L2 Iliopsoas Hip flexion 5 5 L3 Quadriceps Knee extension 5 5 L4 Tibialis anterior Dorsiflexion 5 5 L5 Extensor hallucis Great toe extension 5 5 S1 Gastrocnemius Plantar flexion 5 5 Reflexes: Reflex Left Right Biceps 2+ 2+ Triceps 2+ 2+ BR 2+ 2+ Patellar 2+ 2+ Ankle jerk 1+ 1+ Plantar response Downgoing Downgoing Gait: Not assessed Sensation in the extremities: Light touch: Intact x 4 Labs: No results for input(s): WBC, HGB, PLATELET in the last 72 hours. No results for input(s): NA, K, CL, CO2, BUN, CREATININE in the last 72 hours. No results for input(s): PT, INR in the last 72 hours. Imaging: CT Head wo Contrast OSH 04/06/19: 1. Small amount of parafalcine subdural hemorrhage anteriorly 2. Scattered small lytic lesions within the calvarium, nonspecific; correlate with any history or concern for malignancy 3. Motion degraded cervical spine examination; no grossly displaced macrofracture or obvious malalignment identified; consider repeat examination as warranted. Assessment: This is a 63 y.o. male with PMH of polysubstance abuse, HTN, Hep C, depression, COPD s/p intoxicatedfall from standing who was found to have small parafalcine SDH. He is neurologically intact. Plan: -Repeat CT head at 0600 today -Neuro checks Q4H -SBP <160 -Further management per Emergency Medicine/Trauma Surgery documented in this encounter Plan of Treatment Upcoming Encounters Date Type Specialty Care Team Description 12/11/2021 Appointment Radiology 12/11/2021 Office Visit Orthopaedics Marion Tavera , TELEPHONE QUOTATION CLERK [facility] ORTHOPAEDIC SURG [place], [place] [address] (Wo rk) 01/15/2022 Appointment Radiology Stiven Cervantes MD [facility] Pulmonary Medici nelly [place], [place] [address] (Wo rk) Scheduled Procedures Name [...] Plan 9:07 AM EDT) [facility] Note: Formatting of this note might be d ifferent from the original. Patient Goal: To experience less side ef fects than his past regimen of Peg and Ribavirin Timeframe to meet goal: 3 months of ther apy documented as of this encounter Procedures Procedure Name Priority Date/Time Associated Comments Diagnosis BMP W/FASTING STAT 04/07/2019 7:18 AM Results for this GLUCOSE EST procedure are i n the results section. HEMOGRAM STAT 04/07/2019 7:18 AM Results f or this EST procedure are i n the results section. DIFFERENTIAL, STAT 04/07/2019 7:18 AM Results for this AUTOMATED EST procedure are i n the results section. BLUE TUBE HOLD STAT 04/07/2019 7:18 AM Results for this EST procedure are i n the results section. HC CBC,PLT & AUTO STAT 04/07/2019 7:18 AM DIFF EST HC ALCOHOL, BLOOD STAT 04/07/2019 7:18 AM Resu lts for this EST procedure are i n the results section. CT HEAD WO CONTRAST STAT 04/07/2019 5:48 AM Re sults for this (GENERIC) EST procedure are i n the results section. XR CHEST ONE VIEW STAT 04/07/2019 4:09 AM Resu lts for this EST procedure are i n the results section. RAPID DRUG SCREEN, STAT 04/07/2019 3:51 AM Res ults for this URINE (BRITTNEE REQUEST) EST procedur e are in the results section. RAPID DRUG SCREEN STAT 04/07/2019 3:51 AM Resu lts for this W/O CONFIRMATION, EST procedure are in URINE the results section. URINALYSIS WITH STAT 04/07/2019 3:51 AM Result s for this REFLEX CULTURE EST procedure are in the results section. documented [...] For questions regarding this report, please contact [facility] number below. ? Narrative 05/07/2019 3:31 PM [...] resident's interpretation and agree with the findings, Danai Zuleta at 05/07/2019 3:31 PM Thank you for letting us participate in the care of this patient. For questions regarding this report, please contact e number below. Beny Ta APRN IMG CT ORDERABLES Blue Tube HOLD (04/07/2019 7:18 AM EST) athologist Signature Blue Hold Sample in [facility]. [facility] Specimen Anatomical Collection Method Collection Time Receive d Time (Source) Location / / Volume Laterality Blood specimen Venous Draw / 04/07/2019 7:18 AM 2018 7:22 (specimen) Unknown EST AM EST Yue Ogden MD HEMATOLOGY ORDERABLES Performing Organization Address City/State/[place] [address] (ABNORMAL) Differential, Automated (04/07/2019 7:18 AM EST) [facility] Method Time Signature Neutrophils % 70.7 % [facility] Neutr Abs (ANC) 6.89 (H) 1.70 - [facility] 6.10 [facility] x10(3)/[facility] LABORATORY Lymphocytes % 16.7 % [facility] Lymphocytes Abs 1.6 0.9 - 3.2 [facility] x10(3)/[facility] LABORATORY Monocytes % 7.7 % [facility] Monocyte Abs 0.8 0.3 - 0.9 [facility] x10(3)/[facility] LABORATORY Eosinophils % 3.7 % [facility] Eosinophils Abs 0.4 0.0 - 0.4 [facility] x10(3)/[facility] LABORATORY Basophils % 0.8 % [facility] Basophils Abs 0.1 0.0 - 0.1 [facility] x10(3)/[facility] LABORATORY Immature Gran % 0.40 % [facility] Comment: Immature granulocytes(IG's)percentage an d absolute count will include metamyelocytes, myelocytes, and promyelo cytes. Blood smears from CBCs yielding IG's will be scanned manually for concor dance. If this scan disagrees with the automated IG or if promyelocytes are not ed, a manual differential will be performed. Shannan Gran Abs 0.04 0.00 - 0.04 x10(3)/[facility] Y [facility] Specimen Anatomical Collection Method Collection Time Receive d Time (Source) Location / / Volume Laterality Blood specimen 04/07/2019 7:18 AM 019 7:22 (specimen) EST AM EST Resulting Agency Comment Spec In Lab Yue Ogden MD HEMATOLOGY ORDERABLES Performing Organization Address City/State/[place] [address] [facility] [address] (ABNORMAL) Hemogram (04/07/2019 7:18 AM EST) Analysis Performed At Patho logist Time Signature WBC 9.8 (H) 4.0 - 9.5 [facility] x10(3)/[facility] LABORATORY RBC 4.38 (L) 4.58 - [facility] 5.54 [facility] x10(6)/[facility] LABORATORY Hemoglobin 13.8 13.7 - [facility] gm/dL [facility] Hematocrit 40.4 (L) 40.5 - [facility] 48.5 % [facility] MCV 92.2 82.9 - [facility]1 [facility] LABORATORY MCH 31.5 27.5 - [facility] 32.1 pg [facility] MCHC 34.2 32.0 - [facility] 35.7 gm/dL [facility] Platelets 314 145 - 357 [facility] x10(3)/[facility] LABORATORY RDWSD 44.8 36.0 - [facility] 45.0 [facility] LABORATORY RDWCV 13.3 11.4 - [facility] 13.8 % [facility] MPV 9.1 7.6 - 12.9 [facility] LABORATORY nRBC % Auto 0.0 % [facility] nRBC Abs Auto 0.000 0.000 - [facility] 0.000 [facility] x10(3)/[facility] LABORATORY Specimen Anatomical Collection Method Collection Time Receive d Time (Source) Location / / Volume Laterality Blood specimen 04/07/2019 7:18 AM 019 7:22 (specimen) EST AM EST Resulting Agency Comment Spec In Lab Yue Ogden MD HEMATOLOGY ORDERABLES Performing Organization Address City/State/[place] [address] Ethanol Level (04/07/2019 7:18 AM EST) P athologist Signature Ethanol Lvl <100 <=99 mg/L [facility] Comment: Greater than 800 mg/L (0.08%) should be considered intoxicated. 3400 to 4500 mg/L (0.34 - 0.45%) is cons idered severe intoxication. Greater than 5500 mg/L (0.55%) is usuall y fatal. Specimen Anatomical Collection Method Collection Time Receive d Time (Source) Location / / Volume Laterality Blood specimen 04/07/2019 7:18 AM 019 7:22 (specimen) EST AM EST Resulting Agency Comment Spec In Lab Jasmyne Deng MD CHEMISTRY ORDERABLES Performing Organization Address City/State/[place] [address] (ABNORMAL) BMP w/fasting Glucose (04/07/2019 7:18 AM EST) athologist Signature Glucose 81 65 - 99 [facility] Fasting mg/dL [facility] Comment: ?Fasting* Glucose Interpretive C [...] of Diabetes Mellitus, Position Statement from the [place] [employer]. ??Diabete s Care, Volume 33, Supplement 1, May 2009 BUN 7 (L) 10 - 20 mg/dL [facility] Creatinine 0.69 (L) 0.80 - 1.50 mg/dL [facility] Sodium 139 135 - 145 mmol/L [facility] Potassium 4.1 3.5 - 5.0 mmol/L [facility] Comment: Please note: ??Patients with WBC >100,00 0 may have falsely elevated Potassium levels. ??For accurate Potassium quantif ication in these patients send serum separator tube (gold top) for subsequent determinations. ??Contact the Clinical Chemistry Laboratory if there are any qu estions. Chloride 99 98 - 107 mmol/L [facility] CO2 27 22 - 31 mmol/L [facility] Anion Gap 13 5 - 15 mmol/L [facility] Calcium 8.8 8.5 - 10.5 mg/dL [facility] Estimated GFR 100 >=60 mL/min/1.73 m?? [facility] Comment: The eGFR was calculated using the CKD-EP I equation. As with all creatinine based estimates of kidney function, eGFR values calculated with the CKD-EPI equation are not accurate in patients wi th acute kidney failure, extremes of body mass or the acutely ill. http://[employer]/[facility] eGFR 115 >=60 mL/min/1.73 m?? [facility] Comment: The eGFR was calculated using the CKD-EP I equation. As with all creatinine based estimates of kidney function, eGFR values calculated with the CKD-EPI equation are not accurate in patients wi th acute kidney failure, extremes of body mass or the acutely ill. http://[employer]/[facility] Specimen Anatomical Collection Method Collection Time Receive d Time (Source) Location / / Volume Laterality Blood specimen 04/07/2019 7:18 AM 019 7:22 (specimen) EST AM EST Resulting Agency Comment Spec In Lab Jasmyne Deng MD CHEMISTRY ORDERABLES Performing Organization Address City/State/[place] [address] Head wo Contrast (Generic) (04/07/2019 5:48 AM EST) Anatomical Region Laterality Modality Head Computed Tomography Specimen (Source) Anatomical Location Collection Method / Collectio n Time Received Time / Laterality Volume Impressions 04/07/2019 7:04 AM EST Similar small right parafalcine subdural hemorrhage anteriorly. Preliminary report signed by: River gonzalez at 04/07/2019 6:09 AM I have personally reviewed the image(s) and the residents interpretation and agree with the findings, Carlyle Armstrong at 04/07/2019 7:04 AM Thank you for letting us participate in the care of this patient. For questions regarding this report, please contact e number below. ? Electronically signed by: DOUG Blevins [facility] ([phone]), at 04/07/2019 7:04 AM Narrative 04/07/2019 7:04 AM EST EXAMINATION: CT HEAD WO CONTRAST (GENERIC) CLINICAL HISTORY: SDH follow up TECHNIQUE: CT head performed without intravenous co ntrast administration. COMPARISON: Head CT dated 04/06/2019. FINDINGS: Nonspecific patchy bihemispheric white m atter hypodensity may be sequelae of chronic microangiopathy although other e tiologies not excluded. Prominent CSF spaces with commensurate p arenchymal atrophy, central greater than cortical. Similar 3 mm small right parafalcine sub dural hemorrhage anteriorly. No significant mass effect appreciated. Mild mucosal thickening in the inferior right maxillary sinus. Included mastoid air cells appear well-a erated. Calvarium appears intact. Nonspecific small lytic lesion within th e right frontal bone, with a few other scattered tiny foci. Extracalvarial soft tissue swelling at t he dorsal vertex eccentric to the right, mildly increased. Procedure Note Carlyle Armstrong MD - 04/07/2019 EXAMINATION: CT HEAD WO CONTRAST (GENERI C) CLINICAL HISTORY: SDH follow up TECHNIQUE: CT head performed without intravenous co ntrast administration. COMPARISON: Head CT dated 04/06/2019. FINDINGS: Nonspecific patchy bihemispheric white m atter hypodensity may be sequelae of chronic microangiopathy although other e tiologies not excluded. Prominent CSF spaces with commensurate p arenchymal atrophy, central greater than cortical. Similar 3 mm small right parafalcine sub dural hemorrhage anteriorly. No significant mass effect appreciated. Mild mucosal thickening in the inferior right maxillary sinus. Included mastoid air cells appear well-a erated. Calvarium appears intact. Nonspecific small lytic lesion within th e right frontal bone, with a few other scattered tiny foci. Extracalvarial soft tissue swelling at t he dorsal vertex eccentric to the right, mildly increased. IMPRESSION Similar small right parafalcine subdural hemorrhage anteriorly. Preliminary report signed by: River gonzalez at 04/07/2019 6:09 AM I have personally reviewed the image(s) and the residents interpretation and agree with the findings, Carlyle Armstrong at 04/07/2019 7:04 AM Thank you for letting us participate in the care of this patient. For questions regarding this report, please contact e number below. Electronically signed by: Carlyle Armstrong [facility] ([phone]), at 04/07/2019 7:04 AM Sparkle Dailey MD IMG CT ORDERABLES (ABNORMAL) XR Chest One View (04/07/2019 4:09 AM EST) Anatomical Region Laterality Modality Chest N/A Digital Radiography Specimen (Source) Anatomical Location Collection Method / Collectio n Time Received Time / Laterality Volume Impressions 04/07/2019 5:15 AM EST 1. ??Chronic appearing airways thickening and interstitial prominence, although superimposed acute pathology cannot be e xcluded. 2. ??Unexpected finding: RIGHT infrahila r 1 cm lung nodule. Recommend nonemergent CT for follow-up. Preliminary report signed by: River gonzalez at 04/07/2019 4:21 AM I have personally reviewed the image(s) and the residents interpretation and agree with the findings, Carlyle Armstrong at 04/07/2019 5:15 AM Thank you for letting us participate in the care of this patient. For questions regarding this report, please contact e number below. ? Electronically signed by: Carlyle Armstrong [facility] ([phone]), at 04/07/2019 5:15 AM Narrative 04/07/2019 5:15 AM EST EXAMINATION: XR CHEST ONE VIEW CLINICAL HISTORY: s/p fall from standing eval for injury TECHNIQUE: 1 view of the chest COMPARISON: Chest radiograph dated 01/19/2018 FINDINGS: Elevation of the right hemidiaphragm dem onstrated. RIGHT infrahilar 1 cm nodule. Reticular markings throughout both hemit horaces. Bronchiolar thickening in the bilateral neva. Mild streaky subsegmenta l atelectatic changes and/or scarring. No confluent airspace opacity, pleural e ffusion, or pneumothorax definitively identified. Cardiomediastinal contours a ppear within normal limits. Resulting Agency Comment Unexpected Finding Sparkle Dailey MD IMG DX ORDERABLES (ABNORMAL) Rapid Drug Screen w/o Confirmation, Urine (04/07/2019 3:51 AM EST) [facility] Method Time Signature U Barbiturates None None [facility] Screen Detected Detected [facility] Comment: The barbiturate screen detects barbitura zuhair at concentrations >200 ng/mL. Note: Not all barbiturates cross-react equally with antibody used in this screen. A ? Presumptive Positive? result indicates that the screening result was positive but has not yet been confirmed by a highly-specific method. As with any screen, occasional false positive re sults from cross-reacting substances may occur. Not for Medico-Legal Purposes. U Benzodiazepines Screen None Detected None Detected [facility] Comment: The benzodiazepines screen detects benzo diazepines at concentrations >100 ng/mL. Not all benzodiazepines cross-santino ct equally with antibody used in this screen. Due to the low dosage of clonaze patricia, false negatives may be obtained due to low concentration of clonazepam m etabolites. A ? Presumptive Positive? result indicates that the screening result was positive but has not yet been confirmed by a highly-specific method. As with any screen, occasional false positive re sults from cross-reacting substances may occur. Not for Medico-Legal Purposes. U Cocaine Screen None Detected None Detected [facility] Comment: The cocaine metabolites screen detects b enzoylecgonine (Cocaine Metabolite) at concentrations >150 ng/mL. A ? Presumptive Positive? result indicates that the screening result was positive but has not yet been confirmed by a highly-specific method. As with any screen, occasional false positive re sults from cross-reacting substances may occur. Not for Medico-Legal Purposes. U Methadone Metabolites Presumptive Pos (A) None Detected [facility] Comment: The methadone metabolite screen detects EDDP (major methadone metabolite) at concentrations >100 ng/mL. A ? Presumptive Positive? result indicates that the screening result was positive but has not yet been confirmed by a highly-specific method. As with any screen, occasional false positive re sults from cross-reacting substances may occur. Not for Medico-Legal Purposes. U Opiate Screen None Detected None Detected [facility] Comment: The opiates screen detects opiates at co ncentrations >300 ng/mL. Please note that oxycodone, oxymorphone, fentanyl, tramadol, and other synthetic opioids are not detected by [facility] opiate screen. A ? Presumptive Positive? result indicates that the screening result was positive but has not yet been confirmed by a highly-specific method. As with any screen, occasional false positive re sults from cross-reacting substances may occur. Not for Medico-Legal Purposes. U Cannabinoid Screen Presumptive Pos (A) None Detected [facility] Comment: The marijuana metabolites screen detects the THC metabolite (61-tnx-7-carboxy-delta 9-THC) at concen trations >20 ng/mL. A ? Presumptive Positive? result indicates that the screening result was positive but has not yet been confirmed by a highly-specific method. As with any screen, occasional false positive re sults from cross-reacting substances may occur. Not for Medico-Legal Purposes. U Oxycodone Screen None Detected None Detected [facility] Comment: The oxycodone screen detects oxycodone a nd oxymorphone at concentrations >100 ng/mL. A ? Presumptive Positive? result indicates that the screening result was positive but has not yet been confirmed by a highly-specific method. As with any screen, occasional false positive re sults from cross-reacting substances may occur. Not for Medico-Legal Purposes. U Buprenorphine Screen None Detected None Detected [facility] Comment: The buprenorphine screen detects bupreno rphine at concentrations >5 ng/mL. A ? Presumptive Positive? result indicates that the screening result was positive but has not yet been confirmed by a highly-specific method. As with any screen, occasional false positive re sults from cross-reacting substances may occur. Not for Medico-Legal Purposes. U Fentanyl Screen None Detected None Detected Alvin ERNIE [facility] Comment: The fentanyl screen detects fentanyl at concentrations >2 ng/mL. A ? Presumptive Positive? result indicates that the screening result was positive but has not yet been confirmed by a highly-specific method. As with any screen, occasional false positive re sults from cross-reacting substances may occur. Not for Medico-Legal Purposes. U Tricyclics Screen None Detected None Detected JESSICA HARDING [facility] Comment: The tricyclics screen detects tricyclic antidepressants at concentrations >150 ng/mL. Not all tricyclics cross-react eq ually with the antibody used in this screen. A ? Presumptive Positive? result indicates that the screening result was positive but has not yet been confirmed by a highly-specific method. As with any screen, occasional false positive re sults from cross-reacting substances may occur. Not for Medico-Legal Purposes. U Ethanol Screen Positive (A) None Detected [facility] Comment: This urine ethanol assay detect s ethanol at concentrations >/= 100 mg/L. U Amphetamines Screen None Detected None Detected [facility] Comment: The amphetamine screen detects d-ampheta mine and d-methamphetamine at concentrations >300 ng/mL. A ? Presumptive Positive? result indicates that the screening result was positive but has not yet been confirmed by a highly-specific method. As with any screen, occasional false positive re sults from cross-reacting substances may occur. Not for Medico-Legal Purposes. U Adulterants Screen None Detected None Detected Alvin ERNIE [facility] Comment: No adulteration or dilution of this urin e sample was detected. All urine samples submitted for urine drugs of abu se analysis are tested for creatinine concentration, pH, and for the presence of oxidants, nitrites, and chromate. Specimen Anatomical Collection Method Collection Time Receive d Time (Source) Location / / Volume Laterality Urine specimen 04/07/2019 3:51 AM 019 4:04 (specimen) EST AM EST Resulting Agency Comment Spec In Lab Sparkle Dailey MD CHEMISTRY ORDERABLES Performing Organization Address City/[facility]/ZIP Code Phon e Number [place] [id number] Urinalysis with reflex Culture (04/07/2019 3:51 AM EST) [facility] Method Time Signature Glucose UA Negative Negative [facility] mg/dL [facility] Protein UA Negative Negative [facility] mg/dL [facility] Bilirubin UA Negative Negative [facility] mg/dL [facility] Comment: Clinical correlation required for positi ve Urine Bilirubin results as false positive may occur with some drugs and d rug related products. If a false positive is suspected a serum total bili emery should be considered if clinically indicated. Urobilinogen UA Normal Normal mg/dL [facility] pH UA 7.5 5.0 - 8.0 [facility] Blood UA Negative Negative mg/dL [facility] Ketones UA Negative Negative mg/dL [facility] Nitrite UA Negative Negative [facility] Leukocytes UA Negative Negative [facility] Appearance UA Clear Clear [facility] Spec [place] UA 1.009 1.002 - 1.030 [facility] Color UA Yellow Yellow [facility] Culture Reflexed No [facility] Specimen Anatomical Collection Method Collection Time Receive d Time (Source) Location / / Volume Laterality Urine specimen 04/07/2019 3:51 AM 019 4:04 (specimen) EST AM EST Resulting Agency Comment Spec In Lab Sparkle Dailey MD URINE ORDERABLES Performing Organization Address City/[facility]/[place] [address] Rapid Drug Screen, Urine (BRITTNEE Request) (04/07/2019 3:51 AM EST) [facility] Method Time Signature BRITTNEE Conf No [facility] BRITTNEE Requested See Comment [facility] Comment: Refer to Rapid Drug Screen w/o Confirmation, Urine for results. Specimen Anatomical Collection Method Collection Time Receive d Time (Source) Location / / Volume Laterality Urine specimen 04/07/2019 3:51 AM 019 4:04 (specimen) EST AM EST Resulting Agency Comment Spec In Lab Sparkle Dailey MD URINE ORDERABLES Performing Organization Address City/State/ZIP [place] [address] documented in this encounter Visit Diagnoses Diagnosis Subdural hematoma Subdural hemorrhage Subdural hematoma Subdural hemorrhage documented in this encounter Administered Medications Inactive Administered Medications - up to 3 most recent administrations Medication Order MAR Action Action Date Dose Rate Site methadone (Dolophine) (10 mg/mL) Given 04/07/2019 10:43 AM EST 1 34 mg oral liquid 134 mg 134 mg, Oral, ONCE, 1 dose, On Fri04/07/19 at 1100, Liquid methadone should be used to avoid diversion, and a mouth check should be performed after each dose., Routine ondansetron (ZOFRAN) 4 mg/2 mL injection 1 dose, Starting on Fri04/07/19 at 0354 , Until Fri04/07/19 at 0355, Ross Andres. (sso): cabinet override ondansetron (ZOFRAN) injection 4 mg Given 04/07/2019 3:55 AM EST 4 mg 4 mg, Intravenous, ONCE, 1 dose, On Fri04/07/19 at 0354, STAT documented in this encounter Active and Recently Administered Medications Times are shown in EST. Scheduled Medication Order 04/05/2019 04/06/2019 04/07/2019 methadone (Dolophine) (10 mg/mL) oral liquid 134 mg (COMPLETED) 1043 (Given - Provider: Valentina Ellsworth, VINCENT) 134 mg, Oral, ONCE, 1 dose, Fri04/07/19 at 1100, Liquid methadone should be used to avoid diversion, and a mouth check should be performed after each dose., Routine ondansetron (ZOFRAN) injection 4 mg (COMPLETED) 0355 (Given - Provider: Ross Andres, VINCENT) 4 mg, Intravenous, ONCE, 1 dose, Fri04/07/19 at 0354, STAT documented in this encounter Care Teams Shopping Inspector Relationship Specialty Start Date End Date Brian Fall APRN PCP - General Internal Medicine 04/07/19 [address] [place] [address] documented as of this encounter
--- OUTSIDE RECORDS SUMMARY | 2021-11-30 08:22 | XMS_ITS | Encounter Summary ---
:1955 Author Organization [place] [address] Care Team Providers Name Role Phone Laura Cherry APRN Primary Care Provider Reason for Visit Reason Onset Date Comments Medication Refill 07/18/2017 Encounter Details Date Type Department Care Team Description 07/18/2017 Refill Pulmonology at [facility] Stiven Cervantes MD [facility] [place] [address] Pulmonary Medicine [phone] [place], [place] [address] (Wo rk) Social History Tobacco [...] Visit Orthopaedics Marion Tavera APRN [facility] ER DR ORTHOPAEDIC SURG [place], [place] [address] (Wo rk) 01/15/2022 Appointment Radiology Stiven Cervantes MD [facility] er Dr Carlos Dumont [place], [place] [address] (Wo rk) Scheduled Procedures Name [...] Understanding Action Plan 9:07 AM EDT) [facility] Note: Formatting of this note might be d ifferent from the original. Patient Goal: To experience less side ef fects than his past regimen of Peg and Ribavirin Timeframe to meet goal: 3 months of ther apy documented as of this encounter Visit Diagnoses Not on filedocumented in this encounter Care Teams Machine Precision Engraver Relationship Specialty Start Date End Date Laura Cherry APRN PCP - General Family Medicine 03/20/17 04/06/[address] [place] [address] documented as of this encounter
--- OUTSIDE RECORDS SUMMARY | 2021-11-30 08:22 | XMS_ITS | Encounter Summary ---
:1955 Author Organization [facility] Address [address] [facility] [place] [address] Care Team Providers Name Role Phone Laura Cherry APRN Primary Care Provider Reason for Visit Reason Onset Date Comments Other 05/08/2018 request for records re: Oxygen for 12 months faxed to [facility] Encounter Details Date Type Department Care Team Description 05/08/2018 Telephone Pulmonology at [facility] Sissy Mei Other (request for [facility] Jenni Castillo RN records re: [place] [address] 12 months faxed to [facility]) [phone] Social History Tobacco Use Types Packs/Day Years [...] this encounter Miscellaneous Notes Telephone Encounter - Sissy Mei RN - 05/08/2018 4:33 PM EST Received fax request from Misti Dumas at [facility]: [phone] phone, requesting last 12 months of records regarding oxygen use and need. Requested records faxed to: [phone] Sissy Mei RN, BSN Pulmonary Department [email or web address] Phone: [phone] Pager: [phone] documented in this encounter Plan of Treatment Upcoming Encounters Date Type Specialty Care Team Description 12/11/2021 Appointment Radiology 12/11/2021 Office Visit Orthopaedics Marion Tavera APRN [facility] ORTHOPAEDIC SURG [place], [place] [address] (Wo rk) 01/15/2022 Appointment Radiology Stiven Cervantes MD [facility] Pulmonary Medici [place], [place] [address] (Wo rk) Scheduled Procedures Name [...] on filedocumented in this encounter Care Teams Family Coach Relationship Specialty Start Date End Date Laura Cherry APRN PCP - General Family Medicine 03/20/17 04/06/[address] [place] [address] documented as of this encounter
--- OUTSIDE RECORDS SUMMARY | 2021-11-30 08:22 | XMS_ITS | Encounter Summary ---
:1955 Author Organization [facility] [place] [address] Care Team Providers Name Role Phone Laura Cherry APRN Primary Care Provider Encounter Details Date Type Department Care Team Description 09/08/2017 Telephone [place] [facility] [place] [address] Social History Tobacco Use Types Packs/Day Years [...] this encounter Miscellaneous Notes Telephone Encounter - Nicki Allan - 09/09/2017 8:39 AM EDT The patient came to the Exit desk. The appropriate Radiology Safety questions were asked and the patient was scheduled for his CT scan. documented in this encounter Plan of Treatment Upcoming Encounters Date Type Specialty Care Team Description 12/11/2021 Appointment Radiology 12/11/2021 Office Visit Orthopaedics Marion Tavera APRN [facility] ER ORTHOPAEDIC SURG [place], [place] [address] (Wo rk) 01/15/2022 Appointment Radiology Stiven Cervantes MD [facility] Pulmonary Medici [place], [place] [address] (Wo rk) Scheduled Procedures Name [...] Esquivel, Understanding Action Plan 9:07 AM EDT) [facility] Note: Formatting of this note might be d ifferent from the original. Patient Goal: To experience less side ef fects than his past regimen of Peg and Ribavirin Timeframe to meet goal: 3 months of ther apy documented as of this encounter Visit Diagnoses Not on filedocumented in this encounter Care Teams Pressure Vessel Inspector Relationship Specialty Start Date End Date Laura Cherry APRN PCP - General Family Medicine 03/20/17 04/06/[address] [place] [address] documented as of this encounter
--- OUTSIDE RECORDS SUMMARY | 2021-11-30 08:22 | XMS_ITS | Encounter Summary ---
:1955 Author Organization [facility] [place] [address] Care Team Providers Name Role Phone Brian Fall APRN Primary Care Provider Encounter Details Date Type Department Care Team Description 09/09/2019 Hospital Encounter Laboratory [facility] [place] [address] Social History Tobacco Use Types Packs/Day [...] 12/11/2021 Office Visit Orthopaedics Marion Tavera APRN [facility] ORTHOPAEDIC SURG [place], [place] [address] (Wo rk) 01/15/2022 Appointment Radiology Stiven Cervantes MD [facility] er Pulmonary Medici [place], [place] [address] (Wo rk) Scheduled Procedures Name [...] Action Plan 9:07 AM EDT) [facility] Note: Formatting of this note might be d ifferent from the original. Patient Goal: To experience less side ef fects than his past regimen of Peg and Ribavirin Timeframe to meet goal: 3 months of ther apy documented as of this encounter Procedures Procedure Name Priority Date/Time Associated Diagnosis Comme nts CORTISOL Routine 09/09/2019 8:08 AM Results f or this EDT procedure are i n the results section . documented in this encounter Results Cortisol (09/09/2019 8:08 AM EDT) athologist Signature Cortisol 11.6 mcg/dL [facility] Comment: Reference ranges: ??AM (6-10am): ??4.8-19.5 mcg/dL ??PM (4-8pm) : ??2.5-11.9 mcg/dL Specimen Anatomical Collection Method Collection Time Receive d Time (Source) Location / / Volume Laterality Blood specimen Venous Draw / 09/09/2019 8:08 AM 2019 (specimen) Unknown EDT 10:24 PM EDT Resulting Agency Comment Spec In Lab Brian Fall APRN CHEMISTRY ORDERABLES Performing Organization Address City/State/ZIP [place] [address] documented in this encounter Visit Diagnoses Not on filedocumented in this encounter Care Teams Air Bag Buffer Relationship Specialty Start Date End Date Brian Fall APRN PCP - General Internal Medicine 04/07/[address] [place] [phone] documented as of this encounter
--- OUTSIDE RECORDS SUMMARY | 2021-11-30 08:22 | XMS_ITS | Encounter Summary ---
:1955 Author Organization [facility] [place] [address] Care Team Providers Name Role Phone Laura Cherry APRN Primary Care Provider Encounter Details Date Type Department Care Team Description 01/05/2019 External Results Neurology at [facility] Angelica Jimenes, [facility] [place] [address] [facility] [phone] [place], [place] [address] (Wo rk) Social History Tobacco [...] Marion Tavera APRN [facility] ER ORTHOPAEDIC SURG [place], [place] [address] (Wo rk) 01/15/2022 Appointment Radiology Stiven Cervantes MD [facility] er Pulmonary Mediccharlie [place], [place] [address] (Wo rk) Scheduled Procedures Name [...] Name Priority Date/Time Associated Diagnosis Comme nts CBC (WITH DIFF) Routine 12/28/2018 Results for this procedure are i n the results section . TSH Routine 12/28/2018 Results for thi s procedure are i n the results section . LIPID PANEL (REFLEX Routine 12/28/2018 Results for this DIRECT LDL) procedure are i n the results section . COMPREHENSIVE METABOLIC Routine 12/28/2018 Resu lts for this PANEL (NON-FASTING) procedur e are in the results section . documented in this encounter Results Lipid Panel (12/28/2018) athologist Signature Chol, Total 175 Triglycerides 125 HDL 52 LDL Cholesterol 98 Specimen (Source) Anatomical Location Collection Method / Collectio n Time Received Time / Laterality Volume Blood specimen 12/28/2018 (specimen) Historical Provider CHEMISTRY ORDERABLES (ABNORMAL) Comprehensive metabolic panel (non-fasting) (12/28/2018) athologist Signature Glucose Lvl 128 (H) BUN 16 Creatinine 0.91 Estimated GFR 101.34 eGFR 83.61 [place] BUN/Cre Ratio 17.4 Sodium 136 Potassium 3.7 Chloride 96 CO2 30 Calcium 9.2 Total Protein 6.8 Albumin 3.3 Globulin 3.5 Alb/Globulin 0.9 Ratio Total Bilirubin 0.6 Alk Phos 86 AST 12 ALT 15 Specimen (Source) Anatomical Location Collection Method / Collectio n Time Received Time / Laterality Volume Blood specimen 12/28/2018 (specimen) Historical Provider CHEMISTRY ORDERABLES (ABNORMAL) CBC (with Diff) (12/28/2018) athologist Signature WBC 23.8 (H) RBC 4.44 Hemoglobin 14.7 Hematocrit 44.0 MCV 99.3 (H) MCH 33.1 MCHC 33.0 RDWCV 14.8 Platelets 258 Neutrophils % 83.0 (H) Lymphocytes % 6.0 (L) Monocytes % 6.0 Basophils % 5.0 Specimen (Source) Anatomical Location Collection Method / Collectio n Time Received Time / Laterality Volume Blood specimen 12/28/2018 (specimen) Historical Provider HEMATOLOGY ORDERABLES (ABNORMAL) TSH (12/28/2018) athologist Signature TSH 2.482 Folate Lvl 6.3 (L) Vitamin B-12 242 Specimen (Source) Anatomical Location Collection Method / Collectio n Time Received Time / Laterality Volume Blood specimen 12/28/2018 (specimen) Historical Provider CHEMISTRY ORDERABLES documented in this encounter Visit Diagnoses Not on filedocumented in this encounter Care Teams Farm Implement Mechanic Relationship Specialty Start Date End Date Laura Cherry APRN PCP - General Family Medicine 03/20/17 04/06/[address] [place] [address] documented as of this encounter
--- OUTSIDE RECORDS SUMMARY | 2021-11-30 08:22 | XMS_ITS | Encounter Summary ---
:1955 Author Organization [facility] [place] [address] Care Team Providers Name Role Phone Laura Cherry APRN Primary Care Provider Reason for Visit Reason Onset Date Comments Appointment 01/13/2019 Encounter Details Date Type Department Care Team Description 01/13/2019 Telephone Otolaryngology at [facility] [place] [address] Social History Tobacco Use Types Packs/Day [...] this encounter Miscellaneous Notes Telephone Encounter - Marti Sims - 01/13/2019 10:31 AM EDT Caller and relationship to patient (if other than patient): D Office Patient's Best time to reach caller: KEN Message or Reason for Call: Referral sent 11/25/18 for Unspecified hearing loss, bilateral. Patient has not heard from anyone at [facility] about scheduling an appt. Please contact patient today to schedule. Appt Needed and Reason: Yes, New Pt. Unspecified hearing loss, bilateral Provider: TBD documented in this encounter Plan of Treatment Upcoming Encounters Date Type Specialty Care Team Description 12/11/2021 Appointment Radiology 12/11/2021 Office Visit Orthopaedics Marion Tavera APRN [facility] ER DR ORTHOPAEDIC SURG [place], [place] [address] (Wo rk) 01/15/2022 Appointment Radiology Stiven Cervantes MD [facility] Pulmonary Medici [place], [place] [address] (Wo rk) Scheduled Procedures Name [...] on filedocumented in this encounter Care Teams Blocker Hand Relationship Specialty Start Date End Date Laura Cherry APRN PCP - General Family Medicine 03/20/17 04/06/[address] [place] [phone] documented as of this encounter
--- OUTSIDE RECORDS SUMMARY | 2021-11-30 08:22 | XMS_ITS | Encounter Summary ---
:1955 Author Organization [facility] Address [address] [place] [address] Care Team Providers Name Role Phone Brian Fall APRN Primary Care Provider Encounter Details Date Type Department Care Team Description 10/25/2019 Office Visit Podiatry at [facility] Maia Gómez DPM Foot ulcer, left, with fat layer exposed ; [facility] [place] t ulcer, right, with fat layer exposed; Drive Alcohol-induced polyneuropathy; [place] [id number] Cigarette smoker; [id number] Toe amputee Social History Tobacco Use Types Packs/Day Years Used Date Current Every Day Smoker Cigars, Cigarettes 1 42 Smokeless Tobacco: Never Used Alcohol Use Standard Drinks/Week Comments Yes 24 (1 standard drink = 0.6 oz pure alcoh ol) Sex Assigned at Date Recorded Not on file documented as of this encounter Progress Notes Maia Gómez DPM - 10/25/2019 3:30 PM EDT Images from the original note were not included. [facility] Note Name: Mahin Ramos Age:64 y.o. MR#: [id number] Date of Service: 10/25/2019 SUBJECTIVE: Mahin Ramos is a 64 y.o. 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 Relates seeing wound care on October 13, 2019. Relates having vascular studies done earlier today. Relates history of left foot digital amputation recently secondary to osteomyelitis with prior digital amputation 2 years ago. Relates being on course of linezolid 600 mg for 42 days, ending on October 13, 2019. Also relates course of Keflex in August 2019. Denies any antibiotics for the past 1 week. Relates changing dressing to affected sites every other day. Relates smoking 1 pack/day currently. Denies any recent blood work or imaging studies. Denies any new wounds or other changes in feet. Relates episodes of vomiting in the past, denies any constitutional symptoms today. No other pedal complaints. Patient Active Problem [...] shoulder M25.512 ??? SDH (subdural hematoma) S06.5X9A Allergies Allergen Reactions ??? Morphine Other (See [...] file Gets together: Not on file Attends zoroastrianism service: Not on file Active member of [...] Social History Narrative [place] grew [place]. 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 Pt has been exposed to [...] to Visit Medication Sig Dispense Refill ??? ondansetron ODT (Zofran-ODT) 4 mg Tablet, [...] on file prior to visit. ROS: MSK: + History of partial foot amputation (secondary to osteomyelitis) Skin: + Foot ulcers The remainder of 10 ROS were reviewed and negative. OBJECTIVE: GEN: Patient is AAOX3, afebrile, NAD. Gait stable and non-antalgic. DERM: Skin atrophic and diffusely xerotic with ulcerations noted plantar aspect of bilateral forefoot (left plantar measures 1.2 x 1.2 x 0.3 cm and right plantar measures 0.4 x 0.4 x 0.1 cm). Wound beds granular with slight maceration to left plantar ulceration. Moderate serous exudate. Decreased hairgrowth noted bilaterally. No fissures, drainage, or purulence bilaterally. No evidence of acute infection bilaterally. Interspaces 1-4 bilaterally dry and clear with no signs of fungal or bacterial infection. No erythema or proximal streaking. No fluctuance. No probe to bone. Surrounding skin callus. VASC: Dorsalis pedis +1/4 [...] pad. Previous amputation sites left foot well-healed. DIAGNOSTICS: MRI of left foot 08/2019 ?? Pertinent labs: 10/01/19 ?? 10/01/19: CRP: 4.20 ?? ASSESSMENT: Bilateral foot ulcers--uninfected, rule out osteomyelitis left foot Peripheral neuropathy secondary to alcohol dependence Tobacco use History of partial digital amputations/osteomyelitis left foot PLAN: ??? Patient seen and evaluated. Educated patient on condition and treatment options. ??? Counseling provided on wound care and peripheral neuropathy ??? Explained to patient risks of developing wounds, infections including bone infection, sepsis, and other complications in feet, particularly at sites of open ulcerations ??? Ordered repeat x-ray left foot ??? Ordered BMP, ESR, CRP, albumin. CBC/differential previously ordered and pending. ??? Follow-up final vascular studies DONTAE/TC PO2 ??? Discussed possible MRI following radiographs. Explained if MRI shows osseous changes, I would strongly recommend scheduling for bone biopsy/bone culture. We will coordinate with wound care. ??? Discussed at length with patient importance of smoking cessation ??? Sharply debrided left foot ulceration to level of fat layer using sterile #15 scalpel with nonviable tissue/callus/biofilm removed. Patient tolerated well and without complications. Flushed with sterile saline. ??? Right foot debridement by wound care. ??? Continue with dressing as per wound care. ??? Daily foot inspection and moisturization advised. ??? Continue with offloading shoe. Recommend metatarsal offloading pads. Tall walking boot if failure to improve. ??? Strictly no barefoot ambulation. ??? Follow up with PCP regularly for continued DM management. ??? Signs and symptoms of infection reviewed and provided below. ??? Advised patient to seek prompt medical care if any worsening or changes noted ??? Answered all questions. Patient verbalized understanding of all instructions FOLLOW UP: 1 week in wound care, 3 weeks podiatry or sooner if any concerns arise Please [...] the Emergency Department. Dr. Maia Gómez DPM [employer] documented in this encounter Plan of Treatment Upcoming Encounters Date Type Specialty Care Team Description 12/11/2021 Appointment Radiology 12/11/2021 Office Visit Orthopaedics Marion Tavera APRN [facility] DR ORTHOPAEDIC SURG [place], [place] [address] (Wo rk) 01/15/2022 Appointment Radiology Stiven Cervantes MD [facility] Pulmonary Medici [place], [place] [address] (Wo rk) Scheduled Procedures Name [...] inter phalangeal joint is unchanged. Procedure Note Sparkle Turcios MD - 10/25/2019Formattin g of this note [...] please contact e number below. Maia Gómez DPM IMG DX ORDERABLES (ABNORMAL) CRP, acute inflammation (10/25/2019 4:29 PM EDT) athologist Signature CRP 11.4 (H) <=4.9 mg/L [facility] Specimen Anatomical Collection Method Collection Time Receive d Time (Source) Location / / Volume Laterality Blood specimen 10/25/2019 4:29 PM 020 4:47 (specimen) EDT PM EDT Resulting Agency Comment Spec In Lab Maia Gómez DPM CHEMISTRY ORDERABLES Performing Organization Address City/State/[place] [address] Sedimentation rate (10/25/2019 4:29 PM EDT) athologist Signature Sed Rate 32 2 - 37 [facility] mm/hr [facility] Comment: Effective April 21, 2019 [...] Gómez DPM HEMATOLOGY ORDERABLES Performing Organization Address City/[facility]/[place] [address] Albumin Level (10/25/2019 4:29 PM EDT) athologist Signature Albumin 4.7 3.2 - 5.2 [facility] gm/dL [facility] Specimen Anatomical Collection Method Collection Time Receive d Time (Source) Location / / Volume Laterality Blood specimen 10/25/2019 4:29 PM 020 4:47 (specimen) EDT PM EDT Resulting Agency Comment Spec In Lab Maia Gómez DPM CHEMISTRY ORDERABLES Performing Organization Address City/[facility]/[place] [address] documented in this encounter Visit Diagnoses Diagnosis Foot ulcer, left, with fat layer exposed Foot ulcer, right, with fat layer expose d Alcohol-induced polyneuropathy Alcoholic polyneuropathy Cigarette smoker Tobacco use disorder Toe amputee Foot ulcer, left, with fat layer exposed documented in this encounter Care Teams Statistical Reporting Analyst Relationship Specialty Start Date End Date Brian Fall APRN PCP - General Internal Medicine 04/07/[address] [place] [phone] documented as of this encounter
--- OUTSIDE RECORDS SUMMARY | 2021-11-30 08:22 | XMS_ITS | Encounter Summary ---
:1955 Author Organization [facility] Address [facility] [address] [place] [address] Care Team Providers Name Role Phone Brian Fall APRN Primary Care Provider Reason for Visit Reason Onset Date Comments Other 05/25/2019 Faxed signed and com pleted oxygen CMN to [employer] Encounter Details Date Type Department Care Team Description 05/25/2019 Telephone Pulmonology at [facility] Trisha Broderick, Other (Faxed signed and [facility] Jenni hammer CCMA [place] [phone] [employer] [employer]) [phone] Social History Tobacco Use Types Packs/Day Years [...] 12/11/2021 Office Visit Orthopaedics Marion Tavera APRN [facility] ER DR ORTHOPAEDIC SURG [place], [place] [address] (Wo rk) 01/15/2022 Appointment Radiology Stiven Cervantes MD [facility] er Pulmonary Medici n[place], [place] [address] (Wo rk) Scheduled Procedures Name [...] AM EDT) [facility] Note: Formatting of this note might be d ifferent from the original. Patient Goal: To experience less side ef fects than his past regimen of Peg and Ribavirin Timeframe to meet goal: 3 months of ther apy documented as of this encounter Visit Diagnoses Not on filedocumented in this encounter Care Teams Environmental Science Instructor Relationship Specialty Start Date End Date Brian Fall APRN PCP - General Internal Medicine 04/07/[address] [place] [phone] documented as of this encounter
--- OUTSIDE RECORDS SUMMARY | 2021-11-30 08:22 | XMS_ITS | Encounter Summary ---
:1955 Author Organization [facility] [place] [address] Care Team Providers Name Role Phone Laura Cherry APRN Primary Care Provider Reason for Referral Consultation (Routine) - Closed Specialty Diagnoses / Procedures Referred By Contact Refer red To Contact Sleep Center Diagnoses Mild cognitive impairment Antoni Peres III, MD [facility] Sleep Medicine [facility] [address] [place] [address] [place] [address] Fax: Referral ID Status Reason Start Date Expiration Date Visits V isits Requested Authorized [id number] Closed Consult, 05/29/2018 05/29/2019 1 1 Test & Treat Reason for Visit Consultation (Routine) - Specialty Diagnoses / Procedures Referred By Contact Refer red To Contact Neurology Diagnoses CONFUSION, MEMORY IMPAIRMENT FOR APPROXIMATELY 3 MONTHS, MOCA 17/30, MMSE 25/30, MR BRAIN W/O CONTRAST NON SEPCIFIC MILD ILL-DEFINED FLAIR SIGNAL HYPERINTENSITY WITHIN CENTRAL AGUILAR, DIFFERENTIAL CONSIDERATIONS Laura Cherry APRN [facility] 3c INCLUDE DEMYELINATION, SUCH NEUROMYELITIS OPTICA, AND HYPERTENSIVE ENCEPHALOPATHY IN APPROPRIATE CLINICAL SETTING [address] [place] [address] [place] [address] Phone: Fax: Referral ID Status Reason Start Date Expiration Date Visits V isits Requested Authorized [id number] Consult, 02/10/2018 02/10/2019 99 99 Test & Treat Connection Center Encounter Details Date Type Department Care Team Description 05/29/2018 Office Visit Neurology at [facility] Antoni Peres Mild cognitive [facility] [place] [address] [place] [address] [phone] Social History Tobacco Use Types Packs/Day Years Used Date Current Every Day Smoker Cigars 0.1 42 Marek t: 09/28/2015 Smokeless Tobacco: Former User Alcohol Use Standard Drinks/Week Comments Yes 24 [...] Reading Time Taken Comments Blood Pressure 125/66 05/29/2018 7:54 AM EST Pulse 87 05/29/2018 7:54 AM EST Temperature - - Respiratory Rate - - Oxygen Saturation - - Inhaled Oxygen Concentration - - Weight 94.1 kg (207 lb 6.4 oz) 05/29/2018 7:54 AM EST Height 167.6 cm (5' 6) 05/29/2018 7:54 AM EST Body Mass Index 33.48 05/29/2018 7:54 AM EST documented in this encounter Patient Instructions Patient InstructionsAntoni Peres III, MD - 05/29/2018 8:00 AM EST It was a pleasure meeting you today. You do have mild cognitive impairment, but your memory is not so impaired that you reached a diagnosis of dementia. As we discussed I like to focus on reversible causes of memory impairment. I think that your memory difficulties could be related to the following: Chronic alcohol use Smoking Chronic pain And depression Possible sleep apnea I recommend the following: ?? Start to cut back your alcohol intake to no more than 12 ounce beer per day. ?? Continue to cut back on your smoking. ?? Continue to work with your primary care and pain doctor to work on your pain control and depression. ?? I recommend trying to do some exercise through the day as this may help with your pain control and mood. ?? It would be reasonable to obtain a sleep study to see if you have sleep apnea. We can see you back in clinic in approximately 6 months. Please call or my iloho message with any questions or concerns. Antoni Peres III, MD documented in this encounter Progress Notes Antoni Peres III, MD - 05/29/2018 8:00 AM EST Cognitive Neurology [facility] New Patient Visit Dear Laura Cherry APRN, I saw Mahin Ramos in clinic today in consultation for confusion, . He was accompanied by his wifeat today's visit. Below is my consultation note with impression and plan. Please do not hesitate to call with any questions. Appointment time: 8:15-9:06 (total 51 minutes) 05/29/18 Chief Complaint: memory difficulty History of Presenting Illness: Mahin Ramos is a 62 y.o. man with depression and anxiety, hypertension, polysubstance abuse, chronic back pain on opioids presenting for confusion and memory impairment. ?? Patient's perspective: Mahin reports that has been having memory difficulty for a little while. He occasionally has difficulty remembering what people have told him - he has a longstanding difficulty with attention and concentration dating back to when he was in school. Mahin has some difficulty remembering what he has done the same day, but no difficulty with remembering events that took place in the past few weeks, months or years. ?? He denies having to give up activities because of his memory. ?? Spouse/Family perspective: His reports that he has had memory difficulties since atleast thesummer of 2018. He is repeating questions more frequently over the time. She is concerned that he isnot interested in eating - lacking motivation. He has difficulty remembering what people have told him on the phone. He is asking why he is getting a ride to the methadone clinic every morning - which he has been doing for close to 1 year. ?? He is less motivated and interested in doing chores - but he can do the chores if he had more interest. 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 He denies suicidal ideation. Alcohol ?? drinking 1-2 40oz beers per day; ?? 6-pack per day - all my life ?? 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 His is concerned. He is able to use a phone to call. He is able to do chores. His has always handled finances. Sleep: 3-4 hours of sleep per night - always been that way; but also takes naps during the day. He sometimes snores and occasionally gasps. He has never had a sleep study. Exercise: none Past Medical History: Diagnosis Date ??? COPD [...] M87.029 ??? Pain in left shoulder M25.512 Past Surgical History: Procedure Laterality Date ??? PRO TOTAL KNEE ARTHROPLASTY Left 12/13/2015 @TOTAL KNEE ARTHROPLASTY performed by Gordon Mallory MD at [facility] MAIN OR ??? PRO UPPER GI ENDOSCOPY, DIAGNOSTIC Bilateral 08/17/2015 EGD, UPPER GI ENDOSCOPY performed by Trev Hong MD at [facility] ENDOSCOPY ??? REVISION TOTAL HIP ARTHROPLASTY bilateral for hip AVN ??? SPINE SURGERY Family History Problem Relation Age of Onset ??? Cancer Father ??? Osteoarthritis Mother ??? Cancer Paternal Uncle ??? Cancer Paternal Grandmother Social History Socioeconomic History ??? Marital status: Spouse name: Not on file ??? Number of children: Not on file ??? Years of education: Not on file ??? Highest education level: Not on file Social Needs ??? Financial resource strain: Not on file ??? Food insecurity - worry: Not on file ??? Food insecurity - inability: Not on file ??? Transportation needs - medical: Not on file ??? Transportation needs - non-medical: Not on file Occupational History ??? Not on file Tobacco Use ??? Smoking status: Current Every Day Smoker Packs/day: 0.10 Years: 42.00 Pack years: 4.20 Types: Cigars Last attempt to quit: 09/28/2015 Years since quittin.6 ??? Smokeless tobacco: Former User Substance and Sexual Activity ??? Alcohol use: Yes Alcohol/week: 14.4 - 15.0 oz Types: 21 Standard drinks or equivalent, 3 - 4 Cans of beer per week Comment: 80oz beer per day ??? Drug use: Yes Types: Marijuana ??? Sexual activity: Not on file Comment: deferred Other Topics Concern ??? Not on file Social History Narrative Pt grew up in [place] in [place]. 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 Pt has been exposed to wood dust. No TB Exposure. Pt currently has lived in his home for 30 years, hardwood floor, heated by oile, hot air. Pt has long haired dog. No VNA services at this time. Current Medications: reviewed and updated in the EMR. Review of Systems: A ROS was obtained and reviewed with the patient. Pertinent positives and negatives were included in the HPI. Physical Examination: Most Recent Vitals: 05/29/18 0754 BP: 125/66 Pulse: 87 Hair, skin, nails, and joints were normal. Neck was supple without Lhermitte???s phenomenon. Heart rate & rhythm were regular. No carotid bruits appreciated. He was alert and oriented to person, place, and time. Mood was euthymic. Cognivue Testing (Cerebral Assessment Systems) Total Score: 32 Adaptive Motor: 25 Visual Salience: 41 Discrimination Tasks ?? Letter: 39 ?? Word: 42 ?? Symbol: 41 ?? Motion: 21 Memory Tasks ?? Letter: 32 ?? Word: 27 ?? Symbol: 40 ?? Motion: 19 Scores = 75: No risk of cognitive impairment Scores 51-74: Low-Moderate risk of cognitive impairment Scores = 50: High risk of cognitive impairment Luria Sequence: able to complete 7 sequences independently Visual moreau were full to confrontation.Ocular ductions were full without nystagmus. Facial sensation was normal. Muscles of facial expression moved normally. Hearing was normal. Palatal movements were normal. Trapezius power and tongue movements were normal. There was no dysarthria. Motor tone was normal. No abnormal movements. There was no pronator drift. Strength was full throughout. Deep tendon reflexes: Biceps 2+/2+ Triceps 2+/2+ Knees 2+/2+ Ankles 1+/1+ Temperature and LT sensation was intact and symmetric in all distal extremities. Vibratory sensationwas absent in the feet, present at the knees bilaterally. Negative Romberg. No dysmetria with [id number]-hl-[id number] testing bilaterally. Finger tapping was rapid and accurate bilaterally. Standard gait was antalgic. He was unable to tandem walk. REVIEW OF IMAGING STUDIES: I reviewed the following studies: MRI brain: without contrast Date: 01/2018 and 02/2018 -T2 hyperintense white matter lesions bilateralcerebral hemispheres and most pronounced in the aguilar. No difference between the images from January and February. REVIEW OF LABORATORY STUDIES: Reversible causes of dementia: January 2018: Normal BMP, elevated white blood cell count with elevated MCV, normal TSH Impression: 1. Mild cognitive impairment Referral to Sleep Disorders Center Mahin Ramos is a 62 y.o. man with depression anxiety, chronic alcohol abuse with history of more profound use from his 20s-50s, chronic lower back and hip pain with history of opioid abuse currentlyon methadone, COPD, and hypertension presenting for evaluation of several years of memory decline with may be more profound cognitive decline in the past 6 months. On computer-based cognitive testing (Fanzy) he scored a 32 out of 100 which is in line with being impaired. There is seem to be some evidence of inconsistency with effort over the course of each of the tasks. The rest of his neurological examination was notable for a peripheral neuropathy, which is known. I reviewed his MRI scan of thebrain which showed nonspecific T2 hyperintense white matter lesions in bilateral cerebral hemispheres as well as most prominent in the aguilar. I think that these findings are more consistent with his long-standing history of smoking and hypertension and are not consistent with inflammatory disease. Quest ion has been made by his primary care doctor whether these findings would be consistent with neuromyelitis optica. I do not think that his clinical history and neurological examination are consistent with consideration for this diagnosis. I think that his memory impairment is likely multifactorial: Chronic alcohol abuse, depression, chronic pain on opioids, small vessel ischemic disease, and sleep disturbance. MRI scan of the brain did not show evidence of a geographical pattern of brain atrophy that is most frequently seen in patientswith neurodegenerative diseases. However, the lack of this finding on MRI scan does not necessarily exclude this possibility. Given the fact that his primary drivers for cognitive impairment are potentially addressable I would like to focus on this as there are no medications that significantly alter the course of neurodegenerative diseases such as Alzheimer's. I recommend the following: Alcohol use reduction -no more than 1 12 ounce beer per day Ongoing treatment of his depression Referral to [facility] for sleep study due to potential for obstructive sleep apnea Multifaceted approach to treating his chronic pain including physical therapy and regular exercise, counseling, and non-opioid treatments. Smoking cessation I would recommend checking his vitamin B12 level as it is not clear that this is been checked. Follow-Up: 6 months Thank you for allowing us to participate in [facility]. If you have questions or concerns please do not hesitate to call our clinic at [phone]. Antoni Peres III, MD Fiber Artist of Neurology [facility] More than 50% of this 51 minute [id number]-[id number] interaction was spent in counseling on diagnosis, prognosis, and medication and symptom management. 2:41 PM 05/29/2018 documented in this encounter Plan of Treatment Upcoming Encounters Date Type Specialty Care Team Description 12/11/2021 Appointment Radiology 12/11/2021 Office Visit Orthopaedics Marion Tavera APRN [facility] ER ORTHOPAEDIC SURG [place], [place] [address] (Wo rk) 01/15/2022 Appointment Radiology Stiven Cervantes MD [facility] Pulmonary Medici [place], [place] [address] (Wo rk) Scheduled Procedures Name Priority Associated Diagnoses Date/Time DEBRIDEMENT SKIN, SUBCU, MUSCLE, R great toe amp utation, wound LOWER EXTREMITY (WRVU 2.7) closure MODIFIER WOUND VAC R great toe amputation, wound closure Scheduled Referrals Name Type Priority Associated Diagnoses Order S chedule Referral to Sleep Outpatient Referral Routine Mild cognitive O rdered: Disorders Center impairment 05/29/2018 documented as of this encounter Goals Goal [...] as of this encounter Visit Diagnoses Diagnosis Mild cognitive impairment Mild cognitive impairment, so stated documented in this encounter Care Teams Dyer Assistant Relationship Specialty Start Date End Date Laura Cherry APRN PCP - General Family Medicine 03/20/17 04/06/19 [address] [place] [address] documented as of this encounter
--- OUTSIDE RECORDS SUMMARY | 2021-11-30 08:22 | XMS_ITS | Encounter Summary ---
:1955 Author Organization [facility] [place] [address] Care Team Providers Name Role Phone aLura Cherry APRN Primary Care Provider Encounter Details Date Type Department Care Team Description 12/31/2018 [facility] [place] [address] Social History Tobacco Use Types Packs/Day [...] by mouth 0 08/21/2012 (THERAGRAN) tablet daily. citalopram (CELEXA) 20 Take 20 mg by mouth 0 08/22/2020 mg Tablet Daily. donepezil (ARICEPT) 5 Take 5 mg by mouth 0 03/02/2019 mg Tablet Daily. omeprazole (PRILOSEC) Take 40 [...] Tavera APRN [facility] ORTHOPAEDIC SURG [place], [place] [address] (Wo rk) 01/15/2022 Appointment Radiology Stiven Cervantes MD [facility] Pulmonary Medici [place], [place] [address] (Wo rk) Scheduled Procedures Name [...] Name Priority Date/Time Associated Diagnosis Comme nts BONE CULTURE Routine 12/31/2018 10:03 AM Results for this EDT procedure are i n the results section . documented in this encounter Results Bone Culture (12/31/2018 10:03 AM EDT) Component Value Ref Test Analysis Performed At [facility] gist Range Method Time Signature Bone Culture No growth [facility] Gram Stain Moderate Neutrophils seen MAR Y No microorganisms seen. [facility] Specimen Anatomical Collection Method Collection Time Receive d Time (Source) Location / / Volume Laterality Specimen from TOE STRUCTURE / 12/31/2018 10:03 019 9:46 bone (specimen) Unknown AM EDT PM EDT Comment: LEFT 5TH METATARSAL Resulting Agency Comment Spec In Lab Mitch Coy DPM MICROBIOLOGY - GENERAL ORDER SILAS Performing Organization Address City/State/[place] [address] documented in this encounter Visit Diagnoses Not on filedocumented in this encounter Care Teams Drafter Civil (Cad) Relationship Specialty Start Date End Date Laura Cherry APRN PCP - General Family Medicine 03/20/17 04/06/[address] [place] [address] [phone] documented as of this encounter
--- OUTSIDE RECORDS SUMMARY | 2021-11-30 08:22 | XMS_ITS | Encounter Summary ---
:1955 Author Organization [facility] [address] Care Team Providers Name Role Phone Brian Fall APRN Primary Care Provider Reason for Visit Reason Comments Follow-up 4-6 week OV, small parafalci ne SDH s/p fall Encounter Details Date Type Department Care Team Description 05/07/2019 Office Visit Neurosurgery [place] [facility] Della Bang SDH (subdural [facility] LISA Jarquin hematoma) [place] [address] [phone] [place], [place] [address] Social History Tobacco Use Types [...] Sign Reading Time Taken Comments Blood Pressure 116/70 05/07/2019 9:49 AM EST Pulse 58 05/07/2019 9:49 AM EST Temperature - - Respiratory Rate - - Oxygen Saturation - - Inhaled Oxygen Concentration - - Weight 93.4 kg (205 lb 14.6 oz) 05/07/2019 9:49 AM EST Height 175.3 cm (5' 9) 05/07/2019 9:49 AM EST Body Mass Index 30.41 05/07/2019 9:49 AM EST documented in this encounter Progress Notes Della Bang APRN - 05/07/2019 10:30 AM EST Name: Mahin Ramos : 1955 PCP: Brian Fall APRN REF: Brian Fall Date of Service: 05/07/2019 History & Physical CHIEF COMPLAINT Follow up sp small parafalcine SDH HISTORY OF PRESENT ILLNESS 63 y.o.??male??with PMH of polysubstance abuse, HTN, Hep C, depression, COPD s/p intoxicated fall from standing who was found to have small parafalcine SDH after a GLF on 04/07/19. He is accompanied byhis today. He reports having some occasional headache since his fall and is taking tylenol as needed. Denies balance problems, nausea, vomiting, difficulty with ambulation dizziness, seizure, NT, weakness, new vision or hearing changes. He is making efforts to cut back on ETOH and smoking. PAST MEDICAL HISTORY Patient Active Problem List Diagnosis Code ??? [...] ??? Pain in left shoulder M25.512 Past Medical History: Diagnosis Date ??? COPD (chronic obstructive pulmonary disease) ??? Depression ??? GERD (gastroesophageal reflux disease) ??? Hepatitis C ??? HTN (hypertension) Past Surgical History: Procedure Laterality Date ??? PRO TOTAL KNEE ARTHROPLASTY Left 12/13/2015 @TOTAL KNEE ARTHROPLASTY performed by Gordon Mallory MD at [facility] MAIN OR ??? PRO UPPER GI ENDOSCOPY, DIAGNOSTIC Bilateral 08/17/2015 EGD, UPPER GI ENDOSCOPY performed by Trev Hong MD at [facility] ENDOSCOPY ??? REVISION TOTAL HIP ARTHROPLASTY bilateral for hip AVN ??? SPINE SURGERY ALLERGIES Allergies Allergen Reactions ??? Morphine Other (See Comments) STATES THAT IT DOES NOT TAKE HIS PAIN AWAY MEDICATIONS Current Outpatient Medications: ??? donepezil (ARICEPT) 10 mg Tablet, Take 1 tablet by mouth nightly., Disp: 30 tablet, Rfl: 11 ??? citalopram (CELEXA) 20 mg Tablet, Take 20 mg by mouth Daily., Disp: , Rfl: ??? chlorthalidone (HYGROTEN) 25 mg Tablet, Take 25 mg by mouth daily., Disp: , Rfl: 0 ??? omeprazole (PRILOSEC) 40 mg Capsule, Delayed Release(E.C.), Take 40 mg by mouth daily., Disp: , Rfl: 1 ??? methadone HCl (METHADONE ORAL), Take 140 mg by mouth daily., Disp: , Rfl: [...] mouth daily., Disp: , Rfl: 0 ??? acetaminophen (TYLENOL) 500 mg Tablet, Take 1 tablet by mouth every 8 hours. (Patient taking differently: Take 500 mg by mouth every 8 hours as needed.), Disp: , Rfl: ??? DULERA 100-5 mcg/actuation HFA Aerosol Inhaler, inhale 2 puffs by mouth prn, Disp: , Rfl: 0 ??? gabapentin (NEURONTIN) 600 mg Tablet, Take 2 tablets by mouth as needed., Disp: , Rfl: ??? multivitamin (THERAGRAN) tablet, Take 1 tablet by mouth daily., Disp: , Rfl: SOCIAL HISTORY Social History Socioeconomic History ??? Marital status: [...] file Gets together: Not on file Attends adventism service: Not on file Active member of [...] Social History Narrative [place]. 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 Pt has been exposed to wood dust. No TB Exposure. Pt currently has lived in his home for 30 years, hardwood floor, heated by oile, hot air. Pt has long haired dog. No VNA services at this time. FAMILY HISTORY Family History Problem Relation Age of Onset ??? Cancer Father ??? Osteoarthritis Mother ??? Cancer Paternal Uncle ??? Cancer Paternal Grandmother REVIEW OF SYSTEMS General: Denies recent fever, chills, or weight changes. Eyes: Denies recent changes in vision. ENT: Denies recent changes in hearing or dysphagia. Cardiovascular: Denies CP, palpitations, or irregular heart beat. Respiratory: Denies SOB, cough, or recent respiratory infections. GI: Denies N/V/D/C or change in appetite. : Denies changes in urination; frequency, urgency or burning. Musculoskeletal: Denies weakness, numbness, or tingling in extremities. Heme: Denies recent or history of bleeding or clotting disorder. Neuro: Denies recent changes in mentation, memory, or behavior. PHYSICAL EXAM Ht 175.3 cm (5' 9) Wt 93.4 kg (205 lb 14.6 oz) BMI 30.41 kg/m?? Constitutional: Well developed, well nourished, in NAD. . Neuro: Mental Status/Cognitive: Awake, alert, answers questions appropriately. Cranial Nerves: CN II - Vision grossly intact, PERRLA CN III, IV, - EOMI CN V - V1-3 dermatomes intact to light touch CN VII - No facial asymmetry CN VIII - Hearing intact to limited bedside exam CN IX, X - Uvula midline CN XI - Shoulder shrug 5/5 bilaterally CN XII - Tongue midline Motor: Normal muscle bulk and tone. No pronator drift. Strength 5/5 throughout all muscle groups inall four extremities. Sensory: Sensation grossly intact to light touch in all four extremities. Cerebellar: No dysmetria with finger to nose testing bilaterally Gait: Steady, unassisted Reflexes: DTRs 2+ symmetric throughout. ASSESSMENT & PLAN 63 y.o. male seen in follow up sp small parafalcine SDH after GLF on 04/07/19. Head CT today shows resolution of small (3mm) right parafalcine SDH that was present on 04/07/[address] Patient has no complaints today other than mild/moderate headache that he has had intermittently andis taking tylenol for. Overall doing quite well. He has no focal deficits on exam. Not on anticoagulation or anti-platelets medication. Plan: No further follow up needed except on PRN basis. Della Bang APRN documented in this encounter Plan of Treatment Upcoming Encounters Date Type Specialty Care Team Description 12/11/2021 Appointment Radiology 12/11/2021 Office Visit Orthopaedics Marion Tavera APRN [facility] ER DR ORTHOPAEDIC SURG [place], [place] [address] (Wo rk) 01/15/2022 Appointment Radiology Stiven Cervantes MD [facility] Pulmonary Medici [place]elly [place], [place] [address] (Wo rk) Scheduled Procedures Name [...] AM EDT) [facility] Note: Formatting of this note might be d ifferent from the original. Patient Goal: To experience less side ef fects than his past regimen of Peg and Ribavirin Timeframe to meet goal: 3 months of ther apy documented as of this encounter Visit Diagnoses Diagnosis SDH (subdural hematoma) Subdural hemorrhage documented in this encounter Care Teams Collection Systems Worker Relationship Specialty Start Date End Date Brian Fall APRN PCP - General Internal Medicine 04/07/[address] [place] [phone] documented as of this encounter
--- OUTSIDE RECORDS SUMMARY | 2021-11-30 08:22 | XMS_ITS | Encounter Summary ---
:1955 Author Organization [facility] [place] [address] Care Team Providers Name Role Phone Laura Cherry APRN Primary Care Provider Encounter Details Date Type Department Care Team Description 02/03/2018 [facility] [place] [address] Social History Tobacco Use Types Packs/Day [...] by mouth 0 08/21/2012 (THERAGRAN) tablet daily. SPIRIVA RESPIMAT 2.5 Take 1 puff by mouth 0 07/2211/19/2021 mcg/actuation Mist as needed. ipratropium-albuterol Take 3 mLs by 0 08/29/2017 08/22/2020 (DUONEB) 0.5 mg-3 nebulization every 6 mg(2.5 mg base)/3 mL hours as needed. Solution for Nebulization PROAIR HFA 90 Inhale 2 puffs into 0 07/21/2017 mcg/actuation HFA the lungs every 6 Aerosol Inhaler hours as needed. predniSONE (DELTASONE) Take two tabs daily 5 tablet 0 07/1005/29/2018 20 mg Tablet for 5 days by mouth buPROPion (WELLBUTRIN Take 100 mg by mouth 0 05/29/2018 SR) 100 mg Tablet daily. Sustained Release sofosbuvir-velpatasvir Take 1 tablet by mouth 28 tablet 2 0 06/28/2016 05/29/2018 (EPCLUSA) 400-100 mg daily. TabletIndications: Chronic hepatitis C without hepatic coma acetaminophen (TYLENOL) Take 1 tablet by mouth [...] Marion Tavera APRN [facility] DR ORTHOPAEDIC SURG [place], [place] [address] (Wo rk) 01/15/2022 Appointment Radiology Stiven Cervantes MD [facility] Pulmonary Medici [place], [place] [address] (Wo rk) Scheduled Procedures Name [...] Name Priority Date/Time Associated Diagnosis Comme nts GAMMA GT Routine 02/03/2018 8:35 AM Results f or this EDT procedure are i n the results section . documented in this encounter Results Gamma GT (02/03/2018 8:35 AM EDT) P athologist Signature GGT 33 8 - 61 [facility] Specimen Anatomical Collection Method Collection Time Receive d Time (Source) Location / / Volume Laterality Blood specimen Venous Draw / 02/03/2018 8:35 AM 2017 9:14 (specimen) Unknown EDT PM EDT Resulting Agency Comment Spec In Lab Laura Cherry APRN CHEMISTRY ORDERABLES Performing Organization Address City/State/ZIP [place] [address] documented in this encounter Visit Diagnoses Not on filedocumented in this encounter Care Teams Manager Audio Relationship Specialty Start Date End Date Laura Cherry APRN PCP - General Family Medicine 03/20/17 04/06/[address] [place] [id number] documented as of this encounter
--- OUTSIDE RECORDS SUMMARY | 2021-11-30 08:22 | XMS_ITS | Encounter Summary ---
:1955 Author Organization [facility] [place] [address] Care Team Providers Name Role Phone Brian Fall APRN Primary Care Provider Encounter Details Date Type Department Care Team Description 04/07/2019 Telephone Neurosurgery at [facility] [place] [address] Social History Tobacco Use Types Packs/Day Years Used Date Current Every Day Smoker Cigars, Cigarettes 1 42 Smokeless Tobacco: Never Used Alcohol Use Standard Drinks/Week Comments Yes 24 (1 standard drink = 0.6 oz pure alcoh ol) Sex Assigned at Date Recorded Not on file documented as of this encounter Miscellaneous Notes Telephone Encounter - Komal Oglesby - 04/09/2019 1:09 PM EST Called pt, scheduled f/u 05/07, mailed appt card. Telephone Encounter - Meme Edwards - 04/07/2019 4:39 PM EST Patient needs f/u appointment(s): With AP on/around 05/04/19-05/18/19 4-6 week OV, small parafalcine SDH s/p fall, CT to be scheduled prior Telephone Encounter - Meme Edwards - 04/07/2019 4:39 PM EST Images from the original note were not included. Inpatient Notes Received: Today Message Contents Beny Ta APRN P [facility] Neurosurgery [place] ?? Follow-up in 4-[address] with an NICK. CT Scheduling Questionnaire: Current Weight: Last Wt 03/02/19 : 90.9 kg (200 lb 6.4 oz) ?? Does the patient have a mediport? [ ] YES ??[ x] NO ??[ ] Unknown Does the patient have any mobility concerns???[ ] YES ??[x ] ??NO ??[ ] Unknown ?If YES describe: Is the patient coming from a SCF? [ ] YES ??[ x] NO ??[ ] Unknown documented in this encounter Plan of Treatment Upcoming Encounters Date Type Specialty Care Team Description 12/11/2021 Appointment Radiology 12/11/2021 Office Visit Orthopaedics Marion Tavera APRN [facility] ORTHOPAEDIC SURG [place], [place] [address] ( rk) 01/15/2022 Appointment Radiology Stiven Cervantes MD [facility] Pulmonary Medici [place], [place] [address] (Wo rk) Scheduled Procedures Name [...] filedocumented in this encounter Care Teams Manager Strategic Development Relationship Specialty Start Date End Date Brian Fall APRN PCP - General Internal Medicine 04/07/19 [address] [place] [address] documented as of this encounter
--- OUTSIDE RECORDS SUMMARY | 2021-11-30 08:22 | XMS_ITS | Encounter Summary ---
:1955 Author Organization [facility] [place] [address] Care Team Providers Name Role Phone Laura Cherry APRN Primary Care Provider Encounter Details Date Type Department Care Team Description 09/08/2017 Office Visit Pulmonology at [facility] Stiven Cervantes, Stage 2 moderate COPD by JANAE Arteaga classification; [facility] Pulmonary nodules; Drive [facility] [place] [address] [address] [phone] Pulmonary Medici [place], [place] [address] Social History Tobacco Use Types [...] Sign Reading Time Taken Comments Blood Pressure 177/107 09/08/2017 3:29 PM EDT pain Pulse 59 09/08/2017 3:29 PM EDT Temperature - - Respiratory Rate 20 09/08/2017 3:29 PM EDT Oxygen Saturation 97% 09/08/2017 3:29 PM EDT Inhaled Oxygen Concentration - - Weight 98 kg (216 lb) 09/08/2017 3:29 PM EDT Height 170.2 cm (5' 7) 09/08/2017 3:29 PM EDT Body Mass Index 33.83 09/08/2017 3:29 PM EDT documented in this encounter Progress Notes Stiven Cervantes MD - 09/08/2017 3:30 PM EDT [facility] Section of Pulmonary Medicine COPD Clinic Follow Up Date of Encounter: 09/08/2017 PCP: Laura Cherry, LISA [address] [place] [address] Reason for Visit: Follow up COPD Background: ?? GOLD 2 COPD ?? Smoker, has quit for short periods at a time in the past ?? Paraseptal emphysema and a large intraparenchymal 5cm LLL cyst ?? Chronic elevation of right hemidiaphragm - since at least 2012 Interval History: Mahin Ramos has been doing okay since I last saw him in clinic. He has had a couple exacerbationsthat required prednisone and antibiotics but through the use of this he has managed to avoid ED visits or hospitalizations. He remained short of breath on exertion but inhaled medication has helped significantly. Unfortunately he continues to smoke but only a few cigarettes daily. We discussed the importance of complete cessation. He is using oxygen at home but only occasionally for trips outside of the home. The cost of oxygen for him currently is very high. Review of Systems: Weight stable Past Medical History: Past Medical History: Diagnosis Date ??? Depression ??? GERD (gastroesophageal reflux disease) ??? Hepatitis C ??? HTN (hypertension) Past Surgical History: Past Surgical History: Procedure Laterality Date ??? PRO TOTAL KNEE ARTHROPLASTY Left 12/13/2015 @TOTAL KNEE ARTHROPLASTY performed by Gordon Mallory MD at [facility] MAIN OR ??? PRO UPPER GI ENDOSCOPY, DIAGNOSTIC Bilateral 08/17/2015 EGD, UPPER GI ENDOSCOPY performed by Trev Hong MD at [facility] ENDOSCOPY ??? REVISION TOTAL HIP ARTHROPLASTY bilateral for hip AVN ??? SPINE SURGERY Medications: Current Outpatient Prescriptions Medication Sig Dispense Refill ??? SPIRIVA RESPIMAT 2.5 mcg/actuation Mist ??? ipratropium-albuterol (DUONEB) 0.5 mg-3 mg(2.5 mg base)/3 mL Solution for Nebulization ??? PROAIR HFA 90 mcg/actuation HFA Aerosol Inhaler ??? buPROPion (WELLBUTRIN SR) 100 mg Tablet Sustained Release Take 100 mg by mouth daily. ??? meTOPROLOL succinate (TOPROL-XL) 100 mg Tablet Sustained Release 24 hr Take 1 tablet by mouth daily. 0 ??? sofosbuvir-velpatasvir (EPCLUSA) 400-100 mg Tablet Take 1 tablet by mouth daily. 28 tablet 2 ??? acetaminophen (TYLENOL) 500 mg Tablet Take [...] Take 1 tablet by mouth daily. ??? predniSONE (DELTASONE) 20 mg Tablet Take two tabs daily for 5 days by mouth (Patient not taking:Reported on 09/08/2017) 5 tablet 0 No current facility-administered medications for this visit. Allergies: Morphine Social History: Social History Social History ??? Marital status: Spouse name: N/A ??? Number of children: N/A ??? Years of education: N/A Occupational History ??? Not on file. Social History Main Topics ??? Smoking status: Current Every Day Smoker Packs/day: 0.10 Years: 42.00 Types: Cigars Last attempt to quit: 09/28/2015 ??? Smokeless tobacco: Former User ??? Alcohol use 12.6 - 16.2 oz/week 0 - 6 Cans of beer, 21 Standard drinks or equivalent per week Comment: OCC maybe a six pack a week ??? Drug use: Yes Special: Marijuana ??? Sexual activity: Not on file Other Topics Concern ??? Not on file Social History [place] 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 Pt has been exposed to wood dust. No TB Exposure. Pt currently has lived in his home for 30 years, hardwood floor, heated by oile, hot air. Pt has long haired dog. No VNA services at this time. Family History: Family History Problem Relation Age of Onset ??? Cancer Father ??? Osteoarthritis Mother ??? Cancer Paternal Uncle ??? Cancer Paternal Grandmother Immunizations: Immunization History Administered Date(s) Administered ??? Hep A/Hep B 07/11/2009, 08/11/2009, 02/14/2010 ??? Influenza PF, Split 03/07/2011 ??? Influenza Vaccine, Whole 05/21/2007, 03/04/2008 ??? Pneumococcal Polyvalent 23 02/11/2012 ??? Tdap Vaccine 02/11/2012 Examination: BP (!) 177/107 Comment: pain Pulse 59 Resp 20 Ht 170.2 cm (5' 7) Wt 98 kg (216 lb) SpO2 97% BMI 33.83 kg/m2 General: Comfortable at rest HEENT: No cervical [...] Labs: Lab Results Component Value Date WBC 12.1 10/10/2016 HGB 13.8 10/10/2016 HCT 41.9 10/10/2016 PLATELET 299 10/10/2016 A1AT gentoype: SC A1AT level: 126 Imaging: Available CXR and CT Chest images were viewed personally and reports were reviewed. I agree with theradiology reads. CT Chest [facility] 02/2017 No filling defects within the pulmonary arterial tree. Apical predominant paraseptal and centrilobular emphysematous changes, and a 5 cm pulmonary cyst in the left lower lobe are seen. Scarring is seen in the right lobe. Bilateral dependent pulmonary changes are noted. Airways are patent. No pneumothorax or pleural effusions seen. No mediastinal, hilar, or axillary lymphadenopathy detected. Evaluation of the bone windows reveals no suspicious osseous lesions. Evaluation of the imaged portion of the upper abdominal viscera is significant for dependently layering gallstones. I would add that there is persistent elevation of the right hemidiaphragm going back to 2012 by imaging Results for orders placed during the hospital encounter of 01/05/13 XR chest routine PA & lateral Narrative Examination CHEST ROUTINE PA+LAT Clinical History PNA in 08/2012 Comparison 08/19/2012. Technique PA and lateral chest. Findings The previously seen right upper lobe pneumonia has resolved. There continues to be elevation of the right hemidiaphragm. Left lung is clear. The cardiomediastinal silhouette is unremarkable. No pneumothorax or pleural effusion. Impression 1. Interval resolution of right upper lobe pneumonia. 2. Unchanged right elevated hemidiaphragm. Film and interpretation reviewed by the attending Pulmonary Function Tests: PFT Results Office Visit from 05/15/2017 in Pul[facility]ology at [facility] PFT Results FEV1 (L) 2.4 liters FEV1 [...] right hemidiaphragm - since at least 2012 Overall doing well with just a couple of exacerbations since I last saw him and improved exertional dyspnea with the use of inhaled therapy and oxygen for ambulation. His current oxygen cost is very high and we will explore alternatives. We discussed his alpha-1 antitrypsin carrier status I have advised him to talk with the family about complete smoking cessation for everybody. I spent 5 minutes today counselingMahin Ramos on smoking cessation. We discussed the adverse impact of smoking on his COPD and increased risk of lung cancer. Mahin Ramos is not ready to quit at this time. I encouraged them to contact me or their PCP Laura Cherry APRN when they are ready to quit. Plan: 1. Medications Daily: 1. Spiriva respimat [...] again next visit 10. Lung cancer screening Due next CT February 2018 11. LVRS / Transplant 12. Palliative care 13. A1AT Testing Genotype SC - does not qualify for replacement therapy 14. Other Follow up: Follow up with CT Chest February 2018 Stiven Cervantes MD documented in this encounter Plan of Treatment Upcoming Encounters Date Type Specialty Care Team Description 12/11/2021 Appointment Radiology 12/11/2021 Office Visit Orthopaedics Marion Tavera APRN [facility] DR ORTHOPAEDIC SURG [place], [place] [address] (Wo rk) 01/15/2022 Appointment Radiology Stiven Cervantes MD [facility] er Pulmonary Mediccharlie [place] [phone] (Wo rk) Scheduled Procedures Name Priority Associated [...] moderate COPD by GOLD classifica tion Pulmonary nodules Other nonspecific abnormal finding of smith ng field Smoker Tobacco use disorder documented in this encounter Care Teams Supervisor [employer] Relationship Specialty Start Date End Date Laura Cherry APRN PCP - General Family Medicine 03/20/17 04/06/[address] [place] [address] [phone] documented as of this encounter
--- OUTSIDE RECORDS SUMMARY | 2021-11-30 08:22 | XMS_ITS | Encounter Summary ---
:1955 Author Organization [facility] [place] [address] Care Team Providers Name Role Phone Laura Cherry APRN Primary Care Provider Encounter Details Date Type Department Care Team Description 09/09/2017 Telephone [place]ology at [facility] Agatha Campos, [place] [address] Social History Tobacco Use Types Packs/Day [...] Encounter - Agatha Campos RT - 09/09/2017 10:00 AM EDT Called [facility] office in [place], [place], , Spoke with Suad. Reviewed information from Mahin Ramos that he is paying $350 per month for his oxygen. In May 2017, [facility] was informed that Mahin Ramos DME deductible was $3600, after this is met, he would be responsible for 20%: Approximately $70 per month. She noted [employer] doesn't offer financial assistance. documented in this encounter Plan of Treatment Upcoming Encounters Date Type Specialty Care Team Description 12/11/2021 Appointment Radiology 12/11/2021 Office Visit Orthopaedics Marion Tavera APRN [facility] DR ORTHOPAEDIC SURG [place], [place] [address] (Wo rk) 01/15/2022 Appointment Radiology Stiven Cervantes MD [facility] er Pulmonary Medici nelly [place], [place] [address] (Wo rk) Scheduled Procedures Name [...] Esquivel, Understanding Action Plan 9:07 AM EDT) [facility] Note: Formatting of this note might be d ifferent from the original. Patient Goal: To experience less side ef fects than his past regimen of Peg and Ribavirin Timeframe to meet goal: 3 months of ther apy documented as of this encounter Visit Diagnoses Not on filedocumented in this encounter Care Teams Saw Straightener Relationship Specialty Start Date End Date Laura Cherry APRN PCP - General Family Medicine 03/20/17 04/06/19 [address] [place] [address] documented as of this encounter
--- OUTSIDE RECORDS SUMMARY | 2021-11-30 08:23 | XMS_ITS | Encounter Summary ---
:1955 Author Organization [facility] [place] [address] Care Team Providers Name Role Phone Azalia Peña APRN Primary Care Provider Encounter Details Date Type Department Care Team Description 07/12/2016 Telephone Gastroenterology at [facility] Julia Lomeli [facility] [place] [address] Social History Tobacco Use Types Packs/Day Years Used Date Former Smoker Cigarettes 0.1 42 Quit: 09/28/19 16 Smokeless Tobacco: Former User Comments: STATES THAT HE STOPPED TWO Fri AGO 04/2015 Alcohol Use Standard Drinks/Week Comments Yes 21 [...] this encounter Miscellaneous Notes Telephone Encounter - Julia Lomeli RN - 07/12/2016 11:35 AM EST Caller: patient Callback #:[phone] Message: I have the Epclusa and plan to start tomorrow, July 13, 2016. Teaching sheet letter rev'd with patient. Epclusa x 12 weeks Lab - [facility] Lab orders efaxed there today. GIF - December 11, 2016 Pt verbalizes understanding of instructions and has no further questions presently. documented in this encounter Plan of Treatment Upcoming Encounters Date Type Specialty Care Team Description 12/11/2021 Appointment Radiology 12/11/2021 Office Visit Orthopaedics Marion Tavera APRN [facility] DR ORTHOPAEDIC SURG [place], [place] [address] (Wo rk) 01/15/2022 Appointment Radiology Stiven Cervantes MD [facility] er Pulmonary Medici nelly [place], [place] [address] (Wo rk) Scheduled Procedures [...] of this encounter Visit Diagnoses Diagnosis Chronic hepatitis C without hepatic coma documented in this encounter Care Teams Senior Vice President & General Counsel Relationship Specialty Start Date End Date Azalia Peña APRN PCP - General 11/19/13 03/19/17 documented as of this encounter
--- OUTSIDE RECORDS SUMMARY | 2021-11-30 08:23 | XMS_ITS | Encounter Summary ---
:1955 Author Organization [facility] [place] [address] Care Team Providers Name Role Phone Ion Peña APRN Primary Care Provider Reason for Visit Reason Comments Pain Management Left Knee Pain Encounter Details Date Type Department Care Team Description 01/25/2016 Office Visit Pain Management at [facility] Acute postoperative Mike Jara APRN pain of left knee [facility] [address] [place], [place] [id number] [phone] Social History Tobacco Use Types Packs/Day Years [...] Sign Reading Time Taken Comments Blood Pressure 151/91 01/25/2016 10:01 AM EDT Pulse 70 01/25/2016 10:01 AM EDT Temperature - - Respiratory Rate - - Oxygen Saturation 98% 01/25/2016 10:01 AM EDT Inhaled Oxygen Concentration - - Weight 96.2 kg (212 lb) 01/25/2016 10:01 AM EDT verbal Height 175.3 cm (5' 9) 01/25/2016 10:01 AM EDT Body Mass Index 31.31 01/25/2016 10:01 AM EDT documented in this encounter Progress Notes Renata Lehman, BOSS DYER - 01/25/2016 10:15 AM EDT PAIN CLINIC FOLLOW-UP DATE OF VISIT 01/25/2016 Patient Mahin Ramos 1955 REFERRING PROVIDER Ion Peña APRN [facility] [address] [place] [id number] PRIMARY CARE PROVIDER ION PEÑA APRN [place] and [place] Prescription Monitoring Program were checked and no concerns were identified. Naloxone discussed? Prescription and education given 12/20/15 Home storage of opioids: put up away in a cupboard-- encouraged to keep in locked box ORT: high risk CHIEF COMPLAINT: Acute post-operative pain management s/p left knee TKA HPI: Mahin Ramos presents for acute post-operative pain management following left TKA on 12/13/15 (had avascular necrosis of the left knee). He saw Dr. Lopez in the [facility] on 05/26/15 forevaluation and plan for perioperative pain management following his knee replacement. At this visit,Dr. Lopez recommended that he see an addiction medicine doctor prior to surgery, but Mr. Ramos declined the referral. He was also unable to tell Dr. Lopez what opiate medications he was using at that time, and left the visit before his urine could be collected. Dr. Lopez discussed with himthat he is at high risk for surgical complications and trouble with intra-op and post-operative paincontrol due to his history of opiate dependence and use of illegal drugs. Dr. Lopez made the following plan at that visit: Dilaudid 8mg every four hours for one month, then 6mg every four hours forone month, then wean off over a month. He made it very clear to Mr. Ramos that we would not be managing long- term opioids for him. Per his chart, he has a history of opiate abuse (including admitting to buying opiates on the street) and alcohol abuse. He has been through treatment at the [facility] multiple times in the past and had been maintained on methadone at a maintenance clinic for 13 years (daily dose of 160mg). He was discharged on 12/14/15 with the following prescriptions for pain medication: Valium 5mg every twelve hours for seven days, #14 Oxycodone 20mg tablets, 0.5-1 tablet every 4 hours as needed for pain, #42 Acetaminophen 500mg every eight hours Tramadol 100mg every six hours, #56 Gabapentin 1200mg three times per day At his visit with Ms. Guzman on 01/01/16, she decreased his total daily Oxycodone 20mg down from 5 tabs/day to 4 tabs/day. He had admitted to using more than 5tabs/day before that visit so she counseled him that if he uses more than 4 tabs/day then it would be a violation of his agreement with us. INTERVAL HISTORY: ED visits, hospitalizations, new medical problems or surgeries since previous visit? Left TKA on 12/13/15 Changes in family, social, or functional history since previous visit? No - Fell down last night because he felt like he was going to faint. States this has happened a coupleof times and he is planning to get it checked out. He reports that he lost consciousness for a few seconds. - Had follow up with knee surgeon on 01/15- cleared to return to normal activities. PAIN ASSESSMENT: - Constant burning and deep bone pain in left knee - + chronic neuropathy with numbness in bilateral feet, no weakness in lower extremities - Average pain in past week: 5-8/10, with medications MEDICATIONS Medications 01/25/16 1014 Medication Sig Taking? oxyCODONE (ROXICODONE) 20 mg Tablet Take 0.5-1 tablets by mouth every 4 hours as needed. No more than 3 tablets X 11 days Yes Miscellaneous Medical Supply [facility] Script for two intranasal mucosal atomizing devices for use with naloxone syringe. Yes acetaminophen (TYLENOL) 500 mg Tablet Take 1 tablet by mouth every 8 hours. Yes traMADol (ULTRAM) 50 mg Tablet Take 2 tablets by mouth every 6 hours. #56 for a 7 day supply. Yes DULERA 100-5 mcg/actuation HFA Aerosol Inhaler inhale 2 puffs by mouth twice a day Yes tamsulosin (FLOMAX) 0.4 mg Capsule, Sust. Release 24 hr Yes hydrOXYzine (ATARAX) 50 mg Tablet take 1 tablet by mouth three times a day if needed Yes furosemide (LASIX) 40 mg Tablet Take 1 tablet by mouth daily. Yes gabapentin (NEURONTIN) 600 mg Tablet Take 2 tablets by mouth 3 times daily. Yes potassium chloride (KLOR-CON) 20 mEq Packet Take 20 mEq by mouth daily. Yes omeprazole (PRILOSEC) 40 mg Capsule, Delayed Release(E.C.) Take 40 mg by mouth daily. Yes buPROPion (WELLBUTRIN XL) 300 mg 24 hr tablet take 1 tablet by mouth every morning Yes multivitamin (THERAGRAN) tablet Take 1 tablet by mouth daily. Yes atenolol (TENORMIN) 50 mg tablet Take 1 tablet by mouth 2 times daily. Yes amlodipine (NORVASC) 5 mg tablet Take 1 tablet by mouth daily. Yes nalOXone (NARCAN) 1 mg/mL Syringe FOR OPIOID OVERDOSE, SPRAY 1 MILLILTER IN EACH NOSTRIL. REPEAT AF... (REFER TO PRESCRIPTION NOTES). ADVERSE DRUG REACTIONS Allergies as of 01/25/2016 - Review Complete 01/25/2016 Allergen Reaction Noted ??? Morphine Other (See Comments) 06/13/2015 CURRENT THERAPIES: - Oxycodone 20mg tablets, 0.5-1 tablet, not to exceed three tabs/day -- taking full tab at 3am, another at 10am, then bedtime (try to do the most that he can in the morning so that he is able to exercise and accomplish his activities) - Acetaminophen 500mg every eight hours - Tramadol 100mg every six hours, #56 -- has been on chronic tramadol prescribed by PCP (100mg threetimes daily for chronic pain) - Gabapentin 1200mg three times per day - PT exercises on his own PAST THERAPIES: - Methadone - Physical therapy- just ended REVIEW OF SYSTEMS: Constitutional: denies fever, chills, weight changes, fatigue, + fainting spell yesterday (usually happens when he is moving quickly) HEENT: denies headaches, vision changes,difficulty hearing Cardiac: denies chest pain or palpitations Lungs: denies shortness of breath, wheezing, cough GI: denies constipation ordiarrhea, denies nausea or vomiting, black or bloody stool, loss of control of bowel : denies urinary changes or incontinence, + frequency due to Lasix Neuro: denies changes in attention or orientation; denies dizziness, seizures, tremors Muscloskeletal: denies joint swelling (+ swelling in left knee), occasional use of walkder, + fall last night when he fainted Skin: + healing surgical incision on left knee, no bruising after fall last night but does have swelling Psychological/Mood: + history of anxiety/depression, sees counselor once per month Sleep: hard time falling asleep, but has improved lately (wakes up at about 4am) FUNCTIONAL /SOCIAL Lives with: of 42 years 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 I shower, I eat, I lay in bed RISK ASSESSMENT Smoking: no, former Alcohol: no, history of alcoholism Other drugs: denies (although chart states otherwise) PHYSICAL EXAMINATION Body mass index is 31.31 kg/(m^2). Visit Vitals ??? BP (!) 151/91 ??? Pulse 70 ??? Ht 175.3 cm (5' 9) ??? Wt 96.2 kg (212 lb) Appearance/ Behavior Well groomed, good eye contact, relaxed, cooperative, normal speech, no acute distress. Seen alone. HEENT Sclera non-icteric, conjunctiva clear. Hearing grossly intact. Lungs Clear to ausculation bilaterally Cardiovascular Regular rate and rhythm without murmur Musculoskeletal Gait antalgic, favoring right side. No ambulatory aides Skin Left knee warmer than right knee when felt over his jeans. He did not want to take his jeans off, therefore I did not evaluate the knee (but he reported the incision was healed and that there was no redness or bruising, only swelling). ASSESSMENT Mr. Ramos has acute post-operative pain s/p left TKA on 12/13/15. He has a long history of opioid dependence and alcoholism, for which he was maintained on methadone for thirteen years in the past, as well as attended [facility] for alcohol abuse. He currently denies using illegal drugs or drinking alcohol. I did not complete a formal ORT, but he is high risk for opiate misuse due to his personal history. His wound is healing well and he has been participating in physical therapy three times per week. He understands that the purpose of his visits are to wean down off of his post-operative opioids, as they are not a [place] [facility] [place] option for him. He expresses concern about having to have multipleoperations on various joints in the future due to his avascular necrosis, and I have advised him that we will help with his post-operative pain management if that was the case, with the same goal of weaning him off. His baseline function is very low, as he lays in bed most days. PLAN/RECOMMENDATIONS 1. Decreased Oxycodone 20mg tablets, not to exceed 2 tabs/day for the next 14 days- I gave him a prescription for #28 tablets (He understands that he can break them in half, as well). We have discussed that the goals of his pain medication at this time are to allow him to continue exercising and physical therapy stretches and regaining his strength and function. I have advised him that we will not continue opioid therapy long-term because he is too high of a risk. He understands the risks associated with high-dose opioid therapy. He has been compliant with his wean so far. I also discussed the possibility of using diclofenac gel on his knees in the future, but after reviewing therisk for hepatic necrosis, he declined a prescription at this time- I am already dealing with enough liver issues with my hepatitis C. He is going to use OTC creams and patches that he has at home, along with ice. 2. Continue to have PCP prescribe Tramadol as she was previous to surgery. Also follow up with PCP regarding fainting spells. 3. We discussed the signs of infection or injury to his knee since he fell on it last night and reports increased swelling today. I have advised him to call his surgical team or go to the ED if he begins to have a fever/chills, his knee becomes red or inflamed, he has difficulty ambulating, or he feels sick in any way. He voices understanding. 4. Follow up in 14 days. Mahin Ramos had the opportunity to ask questions and indicated that all questions were answered to his satisfaction. Renata Lehman, MSN, PERSONAL [employer] AP[employer]ISER-[employer], BOSS DYER Nurse Practitioner [facility] documented in this encounter Plan of Treatment Upcoming Encounters Date Type Specialty Care Team Description 12/11/2021 Appointment Radiology 12/11/2021 Office Visit Orthopaedics Marion Tavera APRN [facility] ER ORTHOPAEDIC SURG [place], [place] [address] (Wo rk) 01/15/2022 Appointment Radiology Stiven Cervantes MD [facility] Pulmonary Medici [place], [place] [address] (Wo rk) Scheduled Procedures Name Priority Associated Diagnoses Date/Time DEBRIDEMENT SKIN, SUBCU, MUSCLE, R great toe amp utation, wound LOWER EXTREMITY (WRVU 2.7) closure MODIFIER WOUND VAC R great toe amputation, wound closure documented as of this encounter Visit Diagnoses Diagnosis Acute postoperative pain of left knee documented in this encounter Care Teams Track Manager Relationship Specialty Start Date End Date Ion Peña APRN PCP - General 11/19/13 03/19/17 documented as of this encounter
--- OUTSIDE RECORDS SUMMARY | 2021-11-30 08:23 | XMS_ITS | Encounter Summary ---
:1955 Author Organization [facility] [address] Care Team Providers Name Role Phone Reese Cherryey LISA Primary Care Provider Encounter Details Date Type Department Care Team Description 05/17/2017 Orders Only Pulmonology at [facility] Feliciano López MD [facility] [place] [address] PULMONARY MEDICINE [phone] [place], [place] [address] (Wo rk) Social History Tobacco [...] 12/11/2021 Office Visit Orthopaedics Marion Tavera APRN [facility] ORTHOPAEDIC SURG [place], [place] [address] (Wo rk) 01/15/2022 Appointment Radiology Stiven Cervantes MD [facility] er Pulmonary Medici [place], [place] [address] (Wo rk) Scheduled Procedures Name [...] on filedocumented in this encounter Care Teams Sandblast Or Shotblast Equipment Tender Relationship Specialty Start Date End Date Laura Cherry APRN PCP - General Family Medicine 03/20/17 04/06/[address] [place] [id number] documented as of this encounter
--- OUTSIDE RECORDS SUMMARY | 2021-11-30 08:23 | XMS_ITS | Encounter Summary ---
:1955 Author Organization [facility] [place] [address] Care Team Providers Name Role Phone Azalia Peña APRN Primary Care Provider Reason for Referral Physical Therapy (Routine) - Specialty Diagnoses / Procedures Referred By Contact Refer red To Contact Physical Therapy Diagnoses Chronic pain of left knee Chronic pain of right knee Status post left knee replacement Davide Mallory MD [facility] [address] Referral ID Status Reason Start Date Expiration Date Visits V isits Requested Authorized [id number] Evaluate and 08/20/2016 02/16/2017 12 12 Treat Consultation (Routine) - Closed Specialty Diagnoses / Procedures Referred By Contact Refer red To Contact Orthopaedics Diagnoses Chronic pain of left knee Chronic pain of right knee Status post left knee replacement Davide Mallory MD Bell, John-Erik, MD [facility] DR ORTHOPAEDICS [place] [address] Fax: Referral ID Status Reason Start Date Expiration Date Visits V isits Requested Authorized [id number] Closed Consult, 08/20/2016 08/20/2017 1 1 Test & Treat Consultation (Routine) - Closed Specialty Diagnoses / Procedures Referred By Contact Refer red To Contact Pain Management Diagnoses Chronic pain of left knee Chronic pain of right knee Status post left knee replacement Davide Mallory MD [facility] 3[facility] D R [facility] [place] [address] [place] [address] Fax: Referral ID Status Reason Start Date Expiration Date Visits V isits Requested Authorized [id number] Closed Consult, 08/20/2016 08/20/2017 1 1 Test & Treat Reason for Visit Reason Comments [facility] SP L TKA DOS 12/13/15 Encounter Details Date Type Department Care Team Description 08/20/2016 Office Visit Orthopaedics at [facility] Davide Mallory Chronic pain of left knee; [facility] MD Sd Chronic pain of right knee; [facility] Status [place] [address] [phone] [place] [address] Social History Tobacco Use Types Packs/Day Years Used Date Current Every Day Smoker Cigarettes 0.1 42 Marek t: 09/28/2015 Smokeless Tobacco: [...] Sign Reading Time Taken Comments Blood Pressure 155/93 08/20/2016 8:23 AM EDT Pulse 89 08/20/2016 8:23 AM EDT Temperature - - Respiratory Rate - - Oxygen Saturation - - Inhaled Oxygen Concentration - - Weight 99.7 kg (219 lb 11.2 oz) 08/20/2016 8:23 AM EDT Height 170.8 cm (5' 7.25) 08/20/2016 8:23 AM EDT Body Mass Index 34.15 08/20/2016 8:23 AM EDT documented in this encounter Progress Notes Davide Mallory MD - 08/20/2016 8:00 AM EDT Case Date: 12/13/2015 ? Surgeon: Surgeon(s) and Role: * Davide Mallory MD - Primary * Kel Hair MD - Resident-Surgeon Chato ? Preoperative diagnosis: LEFT knee AVN ? Postoperative diagnosis: LEFT knee AVN ? Procedure(s): @TOTAL KNEE ARTHROPLASTY MODIFIER TC3 FIXED MODULAR DEPUY MODIFIER TC3 ROTATING PLATFORM DEPUY ? Anesthesia: Spinal ? Findings: marked AVN of femur and tibia ? Complications: none ? Fluids: 1200ml Arthroplasty/Orthopaedic History: 1. See above HPI: Mahin Ramos is a very pleasant 60 y.o. year-old male and is now 1 year post left total knee replacement The patient has been doing well with respect to his left knee. He continues to have significant right sided knee pain and also right shoulder pain. Also of note,. He is having significant pain but is unable to obtain pain medications.. Mahin has been ambulating with no assistive device . He is not currently taking pain medicine or NSAIDs, but he wants methadone.. ROS: Denies: fever, chills, night sweats, nausea, or vomiting BP (!) 155/93 Pulse 89 Ht 170.8 cm (5' 7.25) Wt 99.7 kg (219 lb 11.2 oz) BMI 34.15 kg/m2 Physical Exam: Well-appearing male in no acute distress. Alert and Oriented x 3 and answers all questions appropriately. The incision is well healed, with no signs of infection. Knee Exam: Left Knee ROM: Extension:0 Flexion: 115 Alignment: 0-4 degrees Neutral Stability: A/P Translation <5mm Varus <5mm Valgus <5mm Extension La degrees or less Patella Tracking: Normal Pulses Palpable: Left PT:Yes Left DP:Yes Motor/Sensory: Distal Motor: Normal Distal Sensory: Normal Quadriceps Strength: 4 X-RAYS: Multiple radiographic views were obtained at my request and reviewed with the patient. X-rays show a well-placed prosthesis with no evidence of fracture, subsidence, loosening, or periprosthetic complication. Questionnaire Responses: [facility] Surgical Postop Visit 08/20/2016 PROMIS-10 General Health Fair PROMIS-10 Quality of Life Fair PROMIS-10 Physical Health Fair PROMIS-10 Mental Health Poor PROMIS-10 Social Activity Poor PROMIS-10 Everyday Activities A little PROMIS-10 Pain 5 PROMIS-10 Fatigue Severe PROMIS-10 Social Roles Fair PROMIS-10 Anxious or Depressed Always PROMIS PHYSICAL HEALTH SCORE 32.4 PROMIS MENTAL HEALTH SCORE 25.1 KOOS JR Scores 52.47 Problems with surgical incision/wound after surgery No Gone to ER since knee surgery - Admitted to hospital since recent ortho surgery No Additional surgery on same body part No TKA Grade 8 Pain in other KNEE Severe Back pain at this moment Fairly severe Choose Same Treatment Again Completely uncertain [facility] Response 08/20/2016 KOOS JR Scores 52.47 OSWESTRY DISABILITY INDEX - [facility] Response 08/20/2016 Oswestry (NAEEM) Score - KOOS JR Scores 52.47 ASSESSMENT/PLAN: Mr. Ramos is a 60 y.o. year old male status post left total knee replacement Doing well postoperatively. With respect to his left knee. His SANE score is 8. His right knee and hsoulderare bothering him more today. We will see him back in 1 years for repeat examination. X-rays will beneeded at that time. I also gave him a referralfor PT to improve quad strength, Pain Management, and Wicho Romero for his hsoulder. All questions were answered. Signed: DAVIDE MALLORY MD 08/20/2016 documented in this encounter Plan of Treatment Upcoming Encounters Date Type Specialty Care Team Description 12/11/2021 Appointment Radiology 12/11/2021 Office Visit Orthopaedics Marion Tavera APRN [facility] DR ORTHOPAEDIC SURG [place], [place] [address] (Wo rk) 01/15/2022 Appointment Radiology Stiven Cervantes MD [facility] er Pulmonary [place], [place] [address] (Wo rk) Scheduled Procedures Name Priority Associated Diagnoses Date/Time DEBRIDEMENT SKIN, SUBCU, MUSCLE, R great toe amp utation, wound LOWER EXTREMITY (WRVU 2.7) closure MODIFIER WOUND VAC R great toe amputation, wound closure Scheduled Referrals Name Type Priority Associated Diagnoses Order S chedule Referral to Pain Outpatient Referral Routine Chronic pain of l eft Ordered: Clinic knee 08/20/2016 Chronic pain of right knee Status post left knee replacement Referral to Outpatient Referral Routine Chronic pain of left Ordered: Orthopaedics knee 08/20/2016 Chronic pain of right knee Status post left knee replacement Referral to Physical Outpatient Referral Routine Chronic pain of left Ordered: Therapy knee 08/20/2016 Chronic pain of right knee Status post left knee replacement documented as of this encounter Goals Goal [...] of this encounter Visit Diagnoses Diagnosis Chronic pain of left knee Pain in joint, lower leg Chronic pain of right knee Status post left knee replacement documented in this encounter Care Teams Furniture Crater Relationship Specialty Start Date End Date Azalia Peña APRN PCP - General 11/19/13 03/19/17 documented as of this encounter
--- OUTSIDE RECORDS SUMMARY | 2021-11-30 08:23 | XMS_ITS | Encounter Summary ---
:1955 Author Organization [facility] [place] [address] Care Team Providers Name Role Phone Ion Peña APRN Primary Care Provider Reason for Visit Reason Comments Pain Management Left Knee Pain Encounter Details Date Type Department Care Team Description 01/01/2016 Office Visit Pain Management at [facility]ura postoperative Mike Parra APRN pain of knee, left [facility] [address], [place], [place] [id number] [phone] Social History Tobacco Use Types Packs/Day Years [...] Sign Reading Time Taken Comments Blood Pressure 172/79 01/01/2016 11:16 AM EDT Pulse 77 01/01/2016 11:16 AM EDT Temperature - - Respiratory Rate - - Oxygen Saturation 97% 01/01/2016 11:16 AM EDT Inhaled Oxygen Concentration - - Weight 100.2 kg (221 lb) 01/01/2016 11:16 AM EDT Height 175.3 cm (5' 9) 01/01/2016 11:16 AM EDT Body Mass Index 32.64 01/01/2016 11:16 AM EDT documented in this encounter Progress Notes Jasmyne Segura APRN - 01/01/2016 11:30 AM EDT PAIN CLINIC FOLLOW-UP DATE OF VISIT 01/01/2016 Patient Mahin Ramos 1955 REFERRING PROVIDER Ion Peña APRN [facility] [address] [place] [id number] PRIMARY CARE PROVIDER ION PEÑA APRN [place] and [place] Prescription Monitoring Program were checked and no concerns were identified. Naloxone discussed? Prescription and education given 12/20/15 by Ms Fallon APRN Home storage of opioids: per Ms. Lehman- keeps in cupboard ORT: high risk CHIEF COMPLAINT: Acute post-operative pain management s/p left knee TKA HPI: Mahin Ramos presents for acute post-operative pain management following left TKA on 12/13/15 (had avascular necrosis of the left knee). Per notes from Ms. Fallon APRN [facility] for evaluation and plan for perioperative pain management following his knee replacement. At this visit, Dr. Lopez recommended that he see an addiction medicine doctor prior to surgery, but Mr. Ramos declined the referral. He was also unable to tell Dr. Lopez what opiate medications he was using at that time, and left the visit before his urine could be collected. Dr. Lopez discussed with him that he is at high risk for surgical complications and trouble with intra-op and post-operative pain control due to his history of opiate dependence and use of illegal drugs. Dr. Lopez made the following plan at that visit: Dilaudid 8mg every four hours for one month, then 6mg every four hours for one month, then wean off over a month. He made it very clear to Mr. Ramos that we would not be managing long-term opioids for him. Per his chart, he has a history of opiate abuse (including admitting to buying opiates on the street) and alcohol abuse. He has been through treatment at the [facility] multiple times in the past and had been maintained on methadone at a maintenance clinic for 13 years (daily dose of 160mg). He is usually followed by Ms. Fallon APRN but I am seeing him today for the first time. He is seen every 14 days as his opioid is tapered post operative. INTERVAL HISTORY: ED visits, hospitalizations, new medical problems or surgeries since previous visit? Left TKA 12/13/15; Going through PT 3 X per week at his home;, full weight bearing; no other new medical problems Changes in family, social, or functional history since previous visit? No PAIN ASSESSMENT: states most of pain is left ankle, and other joints in the body States he's not ready to decrease the pain medicine Average pain in past week: 6-7 /10 but can go up to 10/10 MEDICATIONS Medications 01/01/16 1237 Medication Sig Taking? oxyCODONE (ROXICODONE) 20 mg Tablet Take 0.5-1 tablets by mouth every 4 hours as needed. No more than 4 tablets (40 mg) per day X 14 days Yes nalOXone (NARCAN) 1 mg/mL Syringe For opioid overdose,spray 1 mL in each nostril. Repeat after 3-5 minutes if no or minimal response. Call 911 before administration. Yes Miscellaneous Medical Supply [facility] Script for two intranasal mucosal atomizing devices for use with naloxone syringe. Yes acetaminophen (TYLENOL) 500 mg Tablet Take 1 tablet by mouth every 8 hours. Yes aspirin 81 mg Tablet, Delayed Release (E.C.) Take 1 tablet by mouth 2 times daily for 29 days. Yes senna-docusate (PERICOLACE) 8.6-50 mg Tablet Take 2 tablets by mouth 2 times daily. Take to maintainnormal bowel pattern while taking narcotic pain medication. Yes polyethylene glycol (MIRALAX) 17 gram Powder in Packet Take 17 g by mouth 2 times daily. Take to maintain normal bowel pattern while taking narcotic pain medication. Yes traMADol (ULTRAM) 50 mg Tablet Take 2 tablets by mouth every 6 hours. #56 for a 7 day supply. Yes mirtazapine (REMERON) 15 mg Tablet take 1 tablet by mouth at bedtime Yes DULERA 100-5 mcg/actuation HFA Aerosol Inhaler [...] Take 1 tablet by mouth daily. Yes ADVERSE DRUG REACTIONS Allergies as of 01/01/2016 - Review Complete 01/01/2016 Allergen Reaction Noted ??? Morphine Other (See Comments) 06/13/2015 CURRENT THERAPIES: Oxycodone 20mg tablets NTE 5 per day- spreads it out every 4 hours but goes longer through night without them (states he may have taken 6 a few days) 01/01/16 decreased to 0.5-1 tab every 4 hours prn NTE 4 per day Acetaminophen 500mg every eight hours Tramadol 100mg every six hours, #56 -- has been on chronic tramadol prescribed by PCP (100mg three times daily for chronic pain) Gabapentin 1200mg three times per day Physical therapy- has started post-op PT three times per week at home Ice bag PAST THERAPIES: - Methadone REVIEW OF SYSTEMS: Constitutional: denies fever, chills, weight changes, fatigue HEENT: denies headaches, vision changes,difficulty hearing Cardiac: denies chest pain or palpitations Lungs: denies shortness of breath, wheezing, cough GI:: no opioid constipation , denies nausea or vomiting, black or bloody stool, loss of control of bowel : denies urinary changes or incontinence, + frequency due to Lasix Neuro: denies changes in attention or orientation; denies dizziness, seizures, tremors Muscloskeletal: denies joint swelling, use of ambulatory aide, falls Skin: + healed surgical incision on left knee Psychological/Mood: + history of anxiety/depression, sees counselor once per month Sleep: hard time falling asleep, up and down FUNCTIONAL /SOCIAL Lives with: 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 Visit Vitals ??? BP 172/79 ??? Pulse 77 ??? Ht 175.3 cm (5' 9) ??? Wt 100.2 kg (221 lb) No flowsheet data found. Appearance/ Behavior Seen alone- clear speech, antalgic gait, difficulty getting up out of the chair HEENT Sclera non-icteric, conjunctiva clear. Hearing grossly intact. Lungs Unlabored Skin Left knee incision well healed- no erythema or drainage . ASSESSMENT Mr. Ramos has acute post-operative pain POD #20 s/p left TKA on 12/13/15. Long history of substance abuse- plan is to taper him off of opioids by 8 weeks post op PLAN/RECOMMENDATIONS 1. Decreased oxycodone to 20 mg NTE 4 tablets per day. Explained that he can break in half and take 10 mg if needed- but not more than 4 tablets in one day. Explained if he takes more than 4 per day, that is a violation of his agreement with us. Gave him 14 day supply- this will take him to POD # 34 Mahin Ramos had the opportunity to ask questions and indicated that all questions were answered to his satisfaction. Jasmyne Segura APRN documented in this encounter Plan of Treatment Upcoming Encounters Date Type Specialty Care Team Description 12/11/2021 Appointment Radiology 12/11/2021 Office Visit Orthopaedics Marion Tavera APRN [facility] ORTHOPA[facility]IC SURG [place], [place] [address] (Wo rk) 01/15/2022 Appointment Radiology Stiven Cervantes MD [facility] Pulmonary Medici [place], [place] [address] (Wo rk) Scheduled Procedures Name Priority Associated Diagnoses Date/Time DEBRIDEMENT SKIN, SUBCU, MUSCLE, R great toe amp utation, wound LOWER EXTREMITY (WRVU 2.7) closure MODIFIER WOUND VAC R great toe amputation, wound closure documented as of this encounter Visit Diagnoses Diagnosis Acute postoperative pain of knee, left documented in this encounter Care Teams [employer] Silver[employer] Salesperson Relationship Specialty Start Date End Date Ion Peña APRN PCP - General 11/19/13 03/19/17 documented as of this encounter
--- OUTSIDE RECORDS SUMMARY | 2021-11-30 08:23 | XMS_ITS | Encounter Summary ---
:1955 Author Organization [facility] [place] [address] Care Team Providers Name Role Phone Azalia Peña APRN Primary Care Provider Encounter Details Date Type Department Care Team Description 07/04/2016 Hospital Encounter Ultrasound at [facility] Trudy Bowden MD Chronic hepatitis C [facility] [address] [place] [address] [place], [place] [phone] [address] Social History Tobacco Use Types Packs/Day Years Used Date Former Smoker Cigarettes 0.1 42 Quit: 09/28/19 16 Smokeless Tobacco: Former User Comments: STATES THAT HE STOPPED TWO MON THS AGO 04/2015 Alcohol Use Standard Drinks/Week Comments [...] Sig Dispensed Refills Start Date End Date multivitamin (THERAGRAN) Take 1 tablet by 0 08/21 tablet mouth daily. sofosbuvir-velpatasvir Take 1 tablet by 28 tablet 2 017 05/29/2018 (EPCLUSA) 400-100 mg mouth daily. TabletIndications: Chronic hepatitis C without hepatic coma nalOXone (NARCAN) 1 Reported on 06/13/2016 0 201508/20/2016 mg/mL Syringe Miscellaneous Medical Script for two 2 each 0 12/20/2015 08/28/2016 Supply [facility] intranasal mucosal atomizing devices for use with naloxone syringe. acetaminophen (TYLENOL) Take 1 tablet by 0 201503/01/2020 500 mg Tablet mouth every 8 hours. traMADol (ULTRAM) 50 mg Take 2 tablets by 56 tablet 0 12/1309/08/2017 Tablet mouth every 6 hours. #56 for a 7 day supply. DULERA 100-5 inhale 2 puffs by 0 11/07/201511/192 mcg/actuation HFA mouth prn Aerosol Inhaler tamsulosin (FLOMAX) 0.4 Reported on 07/08/2016 0 0 10/05/2015 08/20/2016 mg Capsule, Sust. Release 24 hr hydrOXYzine (ATARAX) 50 Reported on 07/08/2016 0 0 10/06/2015 08/28/2016 mg Tablet furosemide (LASIX) 40 mg Take 1 tablet by 0 09/1009/08/2017 Tablet mouth 2 times daily. Reported on 07/08/2016 gabapentin (NEURONTIN) Take 2 tablets by 0 201403/01/2020 600 mg Tablet mouth 3 times daily. potassium chloride Take 20 mEq by mouth 0 015 08/20/2016 (KLOR-CON) 20 mEq Packet daily. Reported on 06/13/2016 omeprazole (PRILOSEC) 40 Take 40 mg by mouth 0 08/20/2016 mg Capsule, Delayed daily. Reported on Release(E.C.) 07/08/2016 buPROPion (WELLBUTRIN take 1 tablet by 30 tablet 5 10/02/19 14 08/20/2016 XL) 300 mg 24 hr tablet mouth every morning atenolol (TENORMIN) 50 Take 1 tablet by 90 tablet 3 013 08/28/2016 mg tablet mouth 2 times daily. amlodipine (NORVASC) 5 Take 1 tablet by 90 tablet 3 012 08/20/2016 mg tablet mouth daily. documented as of this encounter Plan of Treatment Upcoming Encounters Date Type Specialty Care Team Description 12/11/2021 Appointment Radiology 12/11/2021 Office Visit Orthopaedics Marion Tavera APRN [facility] ORTHOPAEDIC SURG [place], [place] [address] (Wo rk) 01/15/2022 Appointment Radiology Stiven Cervantes MD [facility] Pulmonary Medici [place], [place] [address] (Wo rk) Scheduled Procedures Name [...] Diagnosis Comme nts US ABDOMEN LIMITED Routine 07/04/2016 10:22 AM Chronic hepatit is C Results for this EST without hepatic coma procedu re are in the results section. documented in this encounter Results US Abdomen Limited (07/04/2016 10:22 AM EST) Anatomical Region Laterality Modality Abdomen Ultrasound Specimen (Source) Anatomical Collection Method Collection Time Re ceived Time Location / / Volume Laterality 07/04/2016 9:47 AM EST Impressions 07/04/2016 11:10 AM EST ??Ultrasound Dictation: Evaluation of the abdomen was severely limited due to overlying bowel gas. 1. ??Coarse hepatic echotexture with sl ightly nodular capsule, consistent with history of cirrhosis. 2. ??No focal hepatic masses identified within the visualized portions of the liver. 3. ??Cholelithiasis, without evidence o f acute cholecystitis. 4. ??Right kidney normal in size, with no hydronephrosis or renal calculi. I have personally reviewed the image(s) and the residents interpretation and agree with the findings, Chary Coley at 07/04/2016 11:01 AM ?Chary Marte MD Electronically Signed Final Report ?? 11:09 am Narrative 07/04/2016 11:10 AM EST Abdominal ?(Signed Final 07/04/2016 11:09 am) PATIENT INFO: ID #: ? [id number] ?: ??[birth year] (60 yrs) Name: ? SOLEDAD M GABINOPANKAJ ? Visit Date: 07/04/2016 09:47 am PERFORMED BY: Performed By: ? Sommer Wiley RDMS Attending: ?Brijesh DYSON, Chary Sykes Associate: ?Dave Botello MD Referred By: ?TRUDY BOWDEN MD Location: ? [facility] SERVICE(S) PROVIDED: ??UABDLIM - Abdominal Limited Survey Si ngle ? 12566 ??Organ or Quadrant - [id number] INDICATIONS: ??Compensated cirrhosis, assess for HCC COMPARISON: Prior US: 3/30/16 ------ LIVER: ------ Right Lobe Length: ?? 16.1 ?? cm Echogenicity/Echotexture: ?? Coarse wit h slightly nodular ? capsule. Comment: ?Limited views due to over lying bowel gas. GALLBLADDER: Cholelithiasis: ?Gallstones Wall Thickness: ?2.0 mm Focal Tenderness: ?Negative sonogra phic Blair's sign Comment: ?Limited views due to over lying bowel gas. BILIARY TRACT: Intrahepatic Ducts: ?? Normal Extrahepatic Ducts: ?? Normal Common Duct Size: ? 3.0 ? mm --------- PANCREAS: --------- Head: ? Poorly visua lized due to overlying bowel Tail: ? Not visualiz ed, obscured by overlying ? bowel Body: ? Not visualiz ed, obscured by overlying ? bowel RIGHT KIDNEY: Size (cm) ?L: ??11.4 Cortical Thickness: ?Normal Cortical Echogenicity: ?? Normal Hydronephrosis: ?No sonogr aphic evidence ------ AORTA: ------ Comment: ?Normal in caliber where v isualized. ---- IVC: ---- Normal in caliber where visualized. FLUID COLLECTIONS: No ascites seen. Procedure Note Chary Coley MD - 07/04/2016Formmariela g of this note might be different from the original. Abdominal (Signed Final 07/04/2016 11:0 9 am) PATIENT INFO: ID #: [id number] : [birth year] (60 y rs) Name: SOLEDAD RAMOS Visit Date: 2016 09:47 am PERFORMED BY: Performed By: Sommer Wiley RDMS Attending: Chary Coley MD Associate: Dave Botello MD Referred By: TRUDY BOWDEN MD Location: [facility] SERVICE(S) PROVIDED: UABDLIM - Abdominal Limited Survey [place] [address] Organ or Quadrant - [id number] INDICATIONS: Compensated cirrhosis, assess for HCC COMPARISON: Prior US: 08/09/15 ------ LIVER: ------ Right Lobe Length: 16.1 cm Echogenicity/Echotexture: Coarse with s lightly nodular capsule. Comment: Limited views due to overlying bowel gas. GALLBLADDER: Cholelithiasis: Gallstones Wall Thickness: 2.0 mm Focal Tenderness: Negative sonographic Blair's sign Comment: Limited views due to overlying bowel gas. BILIARY TRACT: Intrahepatic Ducts: Normal Extrahepatic Ducts: Normal Common Duct Size: 3.0 mm --------- PANCREAS: --------- Head: Poorly visualized due to overlyin g bowel Tail: Not visualized, obscured by overl gayla bowel Body: Not visualized, obscured by overl gayla bowel RIGHT KIDNEY: Size (cm) L: 11.4 Cortical Thickness: Normal Cortical Echogenicity: Normal Hydronephrosis: No sonographic evidence ------ AORTA: ------ Comment: Normal in caliber where visual ized. ---- IVC: ---- Normal in caliber where visualized. FLUID COLLECTIONS: No ascites seen. IMPRESSION Ultrasound Dictation: Evaluation of the abdomen was severely limited due to overlying bowel gas. 1. Coarse hepatic echotexture with slig htly nodular capsule, consistent with history of cirrhosis. 2. No focal hepatic masses identified w ithin the visualized portions of the liver. 3. Cholelithiasis, without evidence of acute cholecystitis. 4. Right kidney normal in size, with no hydronephrosis or renal calculi. I have personally reviewed the image(s) and the residents interpretation and agree with the findings, Chary Coley at 07/04/2016 11:01 AM Chary Coley MD Electronically Signed Final Report 07/04 11:09 am Trudy Bowden MD IMG US GEN ORDERABLES documented in this encounter Visit Diagnoses Diagnosis Chronic hepatitis C without hepatic coma documented in this encounter Care Teams Senior Service Aide Relationship Specialty Start Date End Date Azalia Peña APRN PCP - General 11/19/13 03/19/17 documented as of this encounter
--- OUTSIDE RECORDS SUMMARY | 2021-11-30 08:23 | XMS_ITS | Encounter Summary ---
:1955 Author Organization [facility] [place] [address] Care Team Providers Name Role Phone Azalia Peña APRN Primary Care Provider Encounter Details Date Type Department Care Team Description 07/05/2016 Telephone [place] [facility] Kate Tilley, [facility] [place] [address] [facility] [phone] GASTROENTEROLOGY [place], [place] [address] (Wo rk) Social History Tobacco [...] this encounter Miscellaneous Notes Telephone Encounter - Monisha Yoder RN - 07/05/2016 12:09 PM EST Spoke with pt. Pt states that he has been taking omeprazole forever; however, stopped taking omeprazole 1 week ago and has been doing well. Pt is willing to go off of omeprazole while taking Epclusa. Pt states that he will call his PCP and notify them that he has not refilled his rx for omeprazole because he would like to stop taking it. documented in this encounter Plan of Treatment Upcoming Encounters Date Type Specialty Care Team Description 12/11/2021 Appointment Radiology 12/11/2021 Office Visit Orthopaedics Marion Tavera APRN [facility] DR ORTHOPAEDIC SURG [place], [place] [address] (Wo rk) 01/15/2022 Appointment Radiology Stiven Cervantes MD [facility] Pulmonary Medici [place], [place] [address] (Wo rk) Scheduled Procedures Name [...] Esquivel Understanding Action Plan 9:07 AM EDT) [facility] Note: Formatting of this note might be d ifferent from the original. Patient Goal: To experience less side ef fects than his past regimen of Peg and Ribavirin Timeframe to meet goal: 3 months of ther apy documented as of this encounter Visit Diagnoses Not on filedocumented in this encounter Care Teams Recruitment Specialist Relationship Specialty Start Date End Date Azalia Peña APRN PCP - General 11/19/13 03/19/17 documented as of this encounter
--- OUTSIDE RECORDS SUMMARY | 2021-11-30 08:23 | XMS_ITS | Encounter Summary ---
:1955 Author Organization [facility] Address [facility] [place] [address] Care Team Providers Name Role Phone Azalia Peña APRN Primary Care Provider Reason for Visit Reason Onset Date Comments New Medication Request 03/18/2016 patient requests that he be restarted on chronic opioids Encounter Details Date Type Department Care Team Description 03/18/2016 Telephone Pain Juventino Mazariegos, New Medication Request [facility] (patient requests that Drive [facility] [place] [address] [address] chronic opioids) [phone] [facility] [place] [phone] (Wo rk) Social History Tobacco Use Types [...] this encounter Miscellaneous Notes Telephone Encounter - Juventino Mazariegos MD - 03/18/2016 5:04 PM EST Paged by patient who called stating that he was previously on chronic opioids through our pain clinic but was tapered for uncertain reasons several years ago. Records indicated he was recently seen andprovided with a short post-surgical opioid taper. It was reiterated to the patient at his most recent visit that he would not be restarted on chronic opioids. The patient called on a Friday asking mich be restarted on chronic opioids: He was also advised that if he felt his pain was severe enough that he could be seen at urgent care or at the ER. The patient indicated that his pain was at his baseline but that he wanted to be restarted on chronic opioid therapy. The patient was further advised that he would need to be seen in clinic and that his eligibility as a chronic opioid patient would be evaluated at that time but that he could not be restarted on chronic opioid therapy over the phone on a Friday. The patient expressed understanding and indicated that he would call back on a weekday tomake an appointment. documented in this encounter Plan of Treatment Upcoming Encounters Date Type Specialty Care Team Description 12/11/2021 Appointment Radiology 12/11/2021 Office Visit Orthopaedics Marion Tavera APRN [facility] ORTHOPAEDIC SURG [place], [place] [address] (Wo rk) 01/15/2022 Appointment Radiology Stiven Cervantes MD [facility] Pulmonary Medici [place], [place] [address] (Wo rk) Scheduled Procedures Name Priority Associated Diagnoses Date/Time DEBRIDEMENT SKIN, SUBCU, MUSCLE, R great toe amp utation, wound LOWER EXTREMITY (WRVU 2.7) closure MODIFIER WOUND VAC R great toe amputation, wound closure documented as of this encounter Visit Diagnoses Not on filedocumented in this encounter Care Teams Supervisor Fabrication Department Relationship Specialty Start Date End Date Azalia Peña APRN PCP - General 11/19/13 03/19/17 documented as of this encounter
--- OUTSIDE RECORDS SUMMARY | 2021-11-30 08:23 | XMS_ITS | Encounter Summary ---
:1955 Author Organization [facility] [place] [address] Care Team Providers Name Role Phone Azalia Peña APRN Primary Care Provider Encounter Details Date Type Department Care Team Description 12/30/2016 Telephone Psychiatry and Behavioral Rin Polanco, [facility] at [facility] [place] [address] [place] [address] Social History Tobacco Use Types Packs/Day Years [...] this encounter Miscellaneous Notes Telephone Encounter - Rin Polanco, [facility] - 12/30/2016 5:27 PM EDT Patient called a second time stating he was upset with the doctor who is supposed to do his surgery tomorrow. He states he called to ask the doctor a few questions but the doctor never called him back.Patient feels frustrated and angry. He is unsure if he will follow through with his scheduled surgery on his foot tomorrow morning. He continues to feel upset about his pain and not being able to get any medication to address it other than Gabapentin and Tylonal. He again became tearful and said he needs help. When asked about SI he states not really but sometimes. He denies current intent or plan and cited protective factors again of his , children and grandchildren. Discussed options for support including inpatient level of care. He states he does not know if he wants or needs that level ofcare at this time but he will think about it. This policy writer encouraged him to talk with his aboutit and provided support around his frustration. He states he will think about it. He was encouraged to call as needed for support and he then politely ended the call. documented in this encounter Plan of Treatment Upcoming Encounters Date Type Specialty Care Team Description 12/11/2021 Appointment Radiology 12/11/2021 Office Visit Orthopaedics Marion Tavera APRN [facility] ORTHOPAEDIC SURG [place], [place] [address] (Wo rk) 01/15/2022 Appointment Radiology Stiven Cervantes MD [facility] Pulmonary Medici [place], [place] [address] (Wo rk) Scheduled Procedures Name [...] on filedocumented in this encounter Care Teams Overhead Line Worker Relationship Specialty Start Date End Date Azalia Peña APRN PCP - General 11/19/13 03/19/17 documented as of this encounter
--- OUTSIDE RECORDS SUMMARY | 2021-11-30 08:23 | XMS_ITS | Encounter Summary ---
:1955 Author Organization [facility] [place] [address] Care Team Providers Name Role Phone Laura Cherry APRN Primary Care Provider Encounter Details Date Type Department Care Team Description 05/23/2017 Telephone Pulmonology at [facility] Geneva Castellano, RN [facility] [place] [address] Social History Tobacco Use Types Packs/Day [...] this encounter Miscellaneous Notes Telephone Encounter - Geneva Castellano, RN - 05/23/2017 11:56 AM EST Pt calling nurse triage line, verified name and . Pt is going to bring a sputum sample into [facility] today. Pt has finished Z-Fletcher and prednisone on , and his productive cough has returned. He will get a refill on Z-Fletcher and prednisone after Lab has cleared him of a usable sputum sample. documented in this encounter Plan of Treatment Upcoming Encounters Date Type Specialty Care Team Description 12/11/2021 Appointment Radiology 12/11/2021 Office Visit Orthopaedics Marion Tavera APRN [facility] ORTHOPAEDIC SURG [place], [place] [address] (Wo rk) 01/15/2022 Appointment Radiology Stiven Cervantes MD [facility] Pulmonary Medici [place], [place] [address] (Wo rk) Scheduled Procedures Name Priority Associated Diagnoses Date/Time DEBRIDEMENT SKIN, SUBCU, MUSCLE, R great toe amp utation, wound LOWER EXTREMITY (WRVU 2.7) closure MODIFIER WOUND VAC R great toe amputation, wound closure documented as of this encounter Goals Goal Patient Goal Associated Recent Patient-Stated? Author Type Problems Progress DH Home Medication Patient On track No Ryan, Compliance and Facing (07/31/2016 Juila Esquivel, Understanding Action Plan 9:07 AM EDT) [facility] Note: Formatting of this note might be d ifferent from the original. Patient Goal: To experience less side ef fects than his past regimen of Peg and Ribavirin Timeframe to meet goal: 3 months of ther apy documented as of this encounter Visit Diagnoses Not on filedocumented in this encounter Care Teams Grinder Setup Operator Relationship Specialty Start Date End Date Laura Cherry APRN PCP - General Family Medicine 03/20/17 04/06/19 [address] [place] [address] documented as of this encounter
--- OUTSIDE RECORDS SUMMARY | 2021-11-30 08:23 | XMS_ITS | Encounter Summary ---
:1955 Author Organization [facility] [address] Care Team Providers Name Role Phone Azalia Peña APRN Primary Care Provider Reason for Visit Reason Comments Right Shoulder Pain Consultation (Routine) - Specialty Diagnoses / Procedures Referred By Contact Refer red To Contact Orthopaedics Diagnoses RIGHT SHOULDER PAIN Self [facility] Orthopaedics 3a Procedures mail [place], [place] [phone] Phone: Fax: Referral ID Status Reason Start Date Expiration Date Visits V isits Requested Authorized [id number] 08/20/2016 08/20/2017 1 1 Encounter Details Date Type Department Care Team Description 08/22/2016 Office Visit Orthopaedics at [facility] Sadie Romero, Avascular necrosis of shantell l head, right; [facility] Left shoulder pain, [place] [address] CENTER [phone] ORTHOPAEDIC SURGERY [place] [address] Social History Tobacco Use Types Packs/Day Years [...] Sign Reading Time Taken Comments Blood Pressure 159/86 08/22/2016 1:07 PM EDT Pulse 70 08/22/2016 1:07 PM EDT Temperature - - Respiratory Rate - - Oxygen Saturation - - Inhaled Oxygen Concentration - - Weight 98.9 kg (218 lb) 08/22/2016 1:07 PM EDT stated Height 172.7 cm (5' 8) 08/22/2016 1:07 PM EDT stated Body Mass Index 33.15 08/22/2016 1:07 PM EDT documented in this encounter Progress Notes Alma Nguyen PA - 08/22/2016 1:00 PM EDT This 60-year-old gentleman is referred from Dr. Mallory for evaluation of bilateral shoulder pain. 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 Patient's right shoulder is much worse than the left. It will keep him up at night. He has not really tried any treatment for this. He denies a history of diabetes. No numbness or tingling in the arm. Examination today with Dr. Romero shows him to be in no acute distress. Forward elevation on the right to 170, internal rotation to right SI joint, external rotation 80 degrees, abduction to 90 before it becomes quite painful. Strength is near 5/5 in all planes. Negative belly liftoff. Range of motion on the left shoulder shows 180 degrees forward flexion, internal rotation to L5, external rotation to 90. He is weak against resistance and internal rotation. He has good strength in empty can testing and external rotation. X-rays taken of both shoulders were reviewed. These show AVN on the right shoulder. Mild glenohumeral changes on the left. No acute abnormalities or evidence of AVN on the left shoulder. IMPRESSION: 1. Right humeral head AVN. 2. Left shoulder pain. TREATMENT: We discussed with him treatment options for the AVN to include conservative measures with home exercise program and antiinflammatory as needed and current pain medicines. Surgical treatment would be in the form of hemiarthroplasty. Patient would like to wait for surgical treatment at this point. He was given information on shoulder replacement. If at any point his pain gets to the point that he no longer can tolerate it and would like to proceed with surgical treatment, we will be happy to see him back. For the left shoulder, we will continue with activities as tolerated. We briefly discussed that we could potentially do a MRI to better evaluate the rotator cuff but he would not pursue any surgical treatment at this time, so we will hold off on that. We did leave followup p.r.n. Sadie Romero MD - 08/22/2016 1:00 PM EDT Attending addendum: The preceeding portion of this note was written by Alma Nguyen PA-C. I personally saw and evaluated the patient as well and I agree with the assessment and plan documented above. Sadie Romero M.D., M.S. Dinking Machine Operator of Orthopaedic Surgery Shoulder, Elbow, and Sports Medicine Department of Orthopaedic Surgery [place], [place] [id number] documented in this encounter Plan of Treatment Upcoming Encounters Date Type Specialty Care Team Description 12/11/2021 Appointment Radiology 12/11/2021 Office Visit Orthopaedics Marion Tavera APRN [facility] ORTHOPAEDIC SURG [place], [place] [address] (Wo rk) 01/15/2022 Appointment Radiology Stiven Cervantes MD [facility] Pulmonary Medici [place], [place] [address] (Wo rk) Scheduled Procedures Name [...] as of this encounter Visit Diagnoses Diagnosis Avascular necrosis of humeral head, righ t Left shoulder pain, unspecified chronici ty documented in this encounter Care Teams Salesperson Books Relationship Specialty Start Date End Date Azalia Peña APRN PCP - General 11/19/13 03/19/17 documented as of this encounter
--- OUTSIDE RECORDS SUMMARY | 2021-11-30 08:23 | XMS_ITS | Encounter Summary ---
:1955 Author Organization [facility] [place] [address] Care Team Providers Name Role Phone Azalia Peña APRN Primary Care Provider Encounter Details Date Type Department Care Team Description 08/22/2016 External Results Gastroenterology at [facility] [place] [address] Social History Tobacco Use Types Packs/Day [...] Office Visit Orthopaedics Marion Tavera APRN [facility] ER DR ORTHOPAEDIC SURG [place], [place] [address] (Wo rk) 01/15/2022 Appointment Radiology Stiven Cervantes MD [facility] Pulmonary Medici nelly [place], [place] [address] (Wo rk) Scheduled Procedures Name [...] Esquivel, Understanding Action Plan 9:07 AM EDT) [facility] Note: Formatting of this note might be d ifferent from the original. Patient Goal: To experience less side ef fects than his past regimen of Peg and Ribavirin Timeframe to meet goal: 3 months of ther apy documented as of this encounter Procedures Procedure Name Priority Date/Time Associated Diagnosis Comme nts HEPATITIS C RNA, Routine 08/14/2016 Results for this QUANTITATIVE, PCR procedure are in the results section . documented in this encounter Results Hepatitis C RNA, quantitative, PCR (08/14/2016) [facility] gist Method Time Signature HCV Viral Load Undetected Specimen (Source) Anatomical Location Collection Method / Collectio n Time Received Time / Laterality Volume Blood specimen 08/14/2016 (specimen) Historical Provider IMMUNOLOGY ORDERABLES documented in this encounter Visit Diagnoses Not on filedocumented in this encounter Care Teams Cane Flume Feeding Machine Operator Relationship Specialty Start Date End Date Azalia Peña APRN PCP - General 11/19/13 03/19/17 documented as of this encounter
--- OUTSIDE RECORDS SUMMARY | 2021-11-30 08:23 | XMS_ITS | Encounter Summary ---
:1955 Author Organization [facility] [place] [address] Care Team Providers Name Role Phone Azalia Peña APRN Primary Care Provider Reason for Visit Reason Onset Date Comments Patient Education 07/08/2016 Patient Education 07/16/2016 Encounter Details Date Type Department Care Team Description 07/08/2016 Telephone Pharmacy at [facility] Julia Davis, Patient Education; [facility] [place] [address] Social History Tobacco Use Types Packs/Day [...] encounter Miscellaneous Notes Telephone Encounter - Julia Antunez [facility] - 09/25/2016 1:23 PM EDT [facility] Specialty Pharmacy: Clinical Management Plan Left message for consult and [facility] lab reminder Telephone Encounter - Julia Antunez [facility] - 08/27/2016 1:11 PM EDT [facility] Specialty Pharmacy: Clinical Management Plan ?? Start Date: 07/13/16 ?? Day: 45 ?? Diagnosis: Hep C-2b ?? Drug: Epclusa ?? Directions: Take one tablet by mouth once daily at the same time each day. Mahin takes this at 6 am. ?? Appropriate therapy: yes ?? Comorbidities: See ???Problem List? Medication reconciliation: completed today 08/27 ?? Antacid/H2RA/PPI use: none ?? New medications since beginning therapy: none ?? Consult on medication and disease state: Provided today. Mahin verbalized appropriate understanding. ?? Adherence: Mahin is paranoid that he vomited up 2 dose of Epclusa when he had the stomach bug a fewweeks ago. He vomited approx. 1 hour after each dose. He notes he only threw up bile and did not seethe tablets. ?? Side effects: none ?? Hydration: Mahin tries to drink water throughout the day ?? Lab schedule: We discussed the need for labs drawn at [facility]. Mahin verbalized understanding. ?? Verbalized understanding to call office before start: yes ?? Received welcome packet: yes ?? Additional comments: Maihn is sending in a check for $5. Once received, we will send out his Epclusa. ?? Informed patient of specialty pharmacy services: yes ?? Next follow-up: [facility] follow up Telephone Encounter - Julia Antunez [facility] - 08/16/2016 8:13 AM EDT [facility] Specialty Pharmacy: Clinical Management Plan Mahin called to say he got labs drawn yesterday, 08/15 at his local [facility] in [place]. He admits that he should of had them done already, but he could not make the timing work with his schedule. Telephone Encounter - Julia Antunez [facility] - 07/31/2016 8:42 AM EDT [facility] Specialty Pharmacy: Clinical Management Plan Start Date: 07/13/16 Day: 18 Diagnosis: Hep C-2b Drug: Epclusa Directions: Take one tablet by mouth once daily at the same time each day. Mahin takes this at 6 am. Appropriate therapy: yes Comorbidities: See ???Problem List?? Medication reconciliation: completed today, 07/31 Antacid/H2RA/PPI use: none New medications since beginning therapy: none Consult on medication and disease state: Provided today, 07/31 Adherence: no missed doses Side effects: none- Mahin did come down with the stomach bug last week. This has since passed. He continued therapy during this. Hydration: Mahin tries to drink water throughout the day Lab schedule: We discussed the lab schedule. Mahin will take his 28th tablet on Friday, 08/10. I asked him to get labs drawn either on 08/09 or 08/12. Verbalized understanding to call office before start: yes Received welcome packet: will provide with this Rx Additional comments: Maihn is sending in a check for $5. Once received, we will send out his Epclusa. Informed patient of specialty pharmacy services: yes Next follow-up: Next refill ?? Telephone Encounter - Julia Antunez [facility] - 07/16/2016 3:23 PM EST [facility] Specialty Pharmacy: Clinical Management Plan Start Date: 07/13/16 Day: Third day consult Diagnosis: Hepatitis C- 2b Drug: Epclusa Directions: Mahin takes his Epclusa once daily between 5-7am. I asked him to pick an exact time. William start taking his Epclusa at 6 am everyday. Appropriate therapy: yes Comorbidities: See ???Problem List?? Medication reconciliation: completed on 07/08 Antacid/H2RA/PPI use: none New medications since beginning therapy: none Consult on medication and disease state: Provided today, 07/16/16 Adherence: no missed doses Side effects: none Hydration: Mahin drinks more water daily. He is not sure if this is why he is not experiencing any side effects, but he is happy to continue doing this. Lab schedule: Mahin and I reviewed the lab schedule again today. He knows to get labs drawn after the 4th week of therapy Verbalized understanding to call office before start: yes Received welcome packet: Provided with Rx Informed patient of specialty pharmacy services: yes Next follow-up: day of therapy Telephone Encounter - Julia Antunez [facility] - 07/08/2016 10:24 AM EST [facility] Specialty Pharmacy: Clinical Management Plan Start Date: N/A Day: Initial consult Diagnosis: Hepatitis C- genotype 2b Drug: Epclusa Directions: Take one tablet by mouth once daily at the same time each day. Appropriate therapy: yes Comorbidities: See ???Problem List?? Medication reconciliation: Completed today on 07/08. He is no longer taking hydroxyzine, Flomax, Lasix, Prilosec, atenolol, and amlodipine. He is taking gabapentin, tramadol, metoprolol, bupropion and a multivitamin. Antacid/H2RA/PPI use: Mahin no longer takes Prilosec New medications since beginning therapy: n/a Consult on medication and disease state: provided on 07/08/16 Adherence: Discussed the importance of not missing any doses. Mahin verbalized understanding. Side effects: Possible headache and fatigue. Mahin verbalized understanding. Hydration: Mahin understands he needs to drink more water to prevent side effects. He currently drinks venkat yaneli or orange juice the majority of the day. Lab schedule: Mahin would like to get his 4th week labs drawn here at [facility] Verbalized understanding to call gastro before start: yes Additional comments: Mahin was worried about side effects. He reports significant side effects withhis past Hep C therapy (Peg/Ribavirin). I told him the side effects for Epclusa are mild in comparison. He was glad to here that. He does not have a debit/credit card. He will mail us a check for his copay of $5. Informed patient of specialty pharmacy services: yes Next follow-up: Three days from start date documented in this encounter Plan of Treatment Upcoming Encounters Date Type Specialty Care Team Description 12/11/2021 Appointment Radiology 12/11/2021 Office Visit Orthopaedics Marion Tavera APRN [facility] ORTHOPAEDIC SURG [place], [place] [address] (Wo rk) 01/15/2022 Appointment Radiology Stiven Cervantes MD [facility] Pulmonary Medici [place], [place] [address] (Wo rk) Scheduled Procedures Name [...] on filedocumented in this encounter Care Teams Wind Tunnel Technician Relationship Specialty Start Date End Date Azalia Peña APRN PCP - General 11/19/13 03/19/17 documented as of this encounter
--- OUTSIDE RECORDS SUMMARY | 2021-11-30 08:23 | XMS_ITS | Encounter Summary ---
:1955 Author Organization [place] [address] Care Team Providers Name Role Phone Azalia Peña APRN Primary Care Provider Reason for Visit Reason Comments Pain Management Knee Pain Right Shoulder Pain Consultation (Routine) - Closed Specialty Diagnoses / Procedures Referred By Contact Refer red To Contact Pain Management Diagnoses Chronic pain of left knee Chronic pain of right knee Status post left knee replacement Gordon Mallory MD [facility] [address] [place] [address] [place] [address] [place] [address] Fax: Referral ID Status Reason Start Date Expiration Date Visits V isits Requested Authorized [id number] Closed Consult, 08/20/2016 08/20/2017 1 1 Test & Treat Encounter Details Date Type Department Care Team Description 08/28/2016 Office Visit Pain Management at [facility] T, Kathy onic pain of multiple joints; [place] 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 INTERPRETER Avascular necrosis [facility] [address] [place], [place] [phone] Social History Tobacco Use Types [...] Sign Reading Time Taken Comments Blood Pressure 117/78 08/28/2016 8:27 AM EDT Pulse 73 08/28/2016 8:27 AM EDT Temperature - - Respiratory Rate - - Oxygen Saturation 98% 08/28/2016 8:27 AM EDT Inhaled Oxygen Concentration - - Weight 98.9 kg (218 lb) 08/28/2016 8:27 AM EDT Height 172.7 cm (5' 8) 08/28/2016 8:27 AM EDT Body Mass Index 33.15 08/28/2016 8:27 AM EDT documented in this encounter Progress Notes Renata Lehman, FULL TIME STAFF INTERPRETER - 08/28/2016 8:45 AM EDT PAIN CLINIC FOLLOW-UP DATE OF VISIT 08/28/2016 Patient Mahin Ramos 1955 REFERRING PROVIDER Gordon Mallory MD [facility] [address] PRIMARY CARE PROVIDER Azalia Peña APRN CHIEF COMPLAINT: Chronic pain management follow-up HPI: Mahin Ramos was last seen in the [facility] Pain clinic by myself in January 2016 for acute post-operative pain management following left TKA on 12/13/15 (had avascular necrosis of the left knee). During those visits, I made it very clear that I did not think he was an appropriate candidate for long-term opioids and that I would not be managing him with chronic opioids. He presents today to discusshis ongoing joint pains and functional limitations. He was seen by Dr. Romero reports that he was toldhis avascular necrosis has migrated to his shoulders. He reports that surgery is ultimately up to him, so he will consider it once his pain worsens or when he can't stand it. He reports that he has not been able to do his exercises at home, but that Dr. Mallory would like him to get back into physical therapy. Per his chart, he has a history of opiate abuse (including admitting to buying opiates on the street) and alcohol abuse. He has been through treatment at the [facility] multiple times in the past and had been maintained on methadone at a maintenance clinic for 13 years (daily dose of 160mg). He saw Dr. Lopez in the [facility] on 05/26/15 for evaluation and [...] visit before his urine could be collected. Pain Assessment: - Constant sharp pains and dull aches diffusely in the joints - + chronic neuropathy with numbness in bilateral feet, no weakness in lower extremities - Average pain in past week: 5/10 INTERVAL HISTORY: ED visits, hospitalizations, new medical problems or surgeries since previous visit? No Changes in family, social, or functional history since previous visit? No - Currently on curative treatment for hepatitis C- states his numbers look good. - His PCP just left the practice and he has an appt to see his new PCP tomorrow, CURRENT THERAPIES: - Acetaminophen 1g every 4-5 hours - Aspirin prn - Tramadol 100mg every six hours, #224 -- has been on chronic tramadol prescribed by PCP (100mg three times daily for chronic pain) - Gabapentin 1200mg three times per day PAST THERAPIES: - Methadone - Physical therapy- just ended - Oxycodone following surgery - Amitriptyline - Hemp cream - Marijuana- some relief (using CBD) MEDICATIONS ND and ID Prescription Monitoring Program were checked and no concerns were identified. -- Tramadol 50mg, #224, every 28 days prescribed by Azalia Peña APRN. Medications 08/27/16 1311 Medication Sig Taking? buPROPion (WELLBUTRIN SR) 100 mg Tablet Sustained Release Take 100 mg by mouth daily. Yes meTOPROLOL succinate (TOPROL-XL) 100 mg Tablet Sustained Release 24 hr Take 1 tablet by mouth daily.Yes sofosbuvir-velpatasvir (EPCLUSA) 400-100 mg Tablet Take 1 tablet by mouth daily. Yes acetaminophen (TYLENOL) 500 mg Tablet Take 1 tablet by mouth every 8 hours. Yes traMADol (ULTRAM) 50 mg Tablet Take 2 tablets by mouth every 6 hours. #56 for a 7 day supply. Yes DULERA 100-5 mcg/actuation HFA Aerosol Inhaler inhale 2 puffs by mouth twice a day Yes furosemide (LASIX) 40 mg Tablet Take 1 tablet by mouth daily. Reported on 07/08/2016 Yes gabapentin (NEURONTIN) 600 mg Tablet Take 2 tablets by mouth 3 times daily. Yes multivitamin (THERAGRAN) tablet Take 1 tablet by mouth daily. Yes atenolol (TENORMIN) 50 mg tablet Take 1 tablet by mouth 2 times daily. Yes ADVERSE DRUG REACTIONS Allergies as of 08/28/2016 - Review Complete 08/28/2016 Allergen Reaction Noted ??? Morphine Other (See Comments) 06/13/2015 REVIEW OF SYSTEMS: Constitutional: denies fever, chills, weight changes, fatigue HEENT: denies headaches, + age-related vision changes, + age-relateddifficulty hearing Cardiac: denies chest pain or palpitations Lungs: + shortness of breath with anxiety, denies wheezing, _ cigarette cough GI: denies constipation or diarrhea, denies nausea or vomiting, black or bloody stool, loss of control of bowel : + hesitation, denies other urinary changes or incontinence Neuro: denies changes in attention or orientation; denies dizziness, seizures, tremors Muscloskeletal: + ankle joint swelling, no ambulatory aides, no falls Skin: denies sores and rashes Psychological/Mood: frustrated with pain, + history of anxiety/depression- not currently seeing counselor Sleep: interrupted due to pain, only sleeping about 2 hours at a time FUNCTIONAL /SOCIAL Lives with: of 42 years 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 Exercise/activities: none recently, planning on going back to PT RISK ASSESSMENT Smoking: started since last visit -- 2-3 cigarettes/day Alcohol: couple cans of beer three times/week, history of alcoholism Other drugs: current recreational marijuana, history of drug abuse PHYSICAL EXAMINATION Body mass index is 33.15 kg/(m^2). Ht 172.7 cm (5' 8) Wt 98.9 kg (218 lb) BMI 33.15 kg/m2 Appearance/ Behavior Well groomed, good eye contact, relaxed, cooperative, normal speech, no acute distress. Accompanied by . HEENT Sclera non-icteric, conjunctiva clear. Hearing grossly intact. Musculoskeletal Gait antalgic. No ambulatory aides. Limited range of motion in right shoulder. LABORATORY STUDIES CMP 06/13/16 Glucose Lvl 114 65 - 199 mg/dL Final Diabetes: >=200 mg/dL plus symptoms BUN 14 10 - 20 mg/dL Final Creatinine 1.14 0.80 - 1.50 mg/dL Final Sodium 141 135 - 145 mmol/L Final Potassium 4.3 3.5 - 5.0 mmol/L Final Chloride 98 98 - 107 mmol/L Final CO2 28 22 - 31 mmol/L Final Anion Gap 15 5 - 15 mmol/L Final Calcium 10.1 8.5 - 10.5 mg/dL Final Total Protein 7.6 6.1 - 8.0 gm/dL Final Albumin 4.5 3.2 - 5.2 gm/dL Final AST 20 0 - 39 unit/L Final ALT 19 0 - 55 unit/L Final Alk Phos 102 40 - 120 unit/L Final Total Bilirubin 0.3 0.2 - 1.3 mg/dL Final Bili, Direct 0.1 0.0 - 0.3 mg/dL Final Estimated GFR >60 >=60 Final ASSESSMENT Mr. Ramos has chronic diffuse joint pain secondary to avascular necrosis. He has a long history of opioid dependence and alcoholism, for which he was maintained on methadone for thirteen years in the past, as well [facility]. Since I last saw him in January 2016, he has started smoking and drinking alcohol again. I did not complete a formal ORT, but he is highrisk for substance misuse due to his personal history. He does have an objectively painful conditionand his function has declined due to his pain, but opioids are not a good or safe long-term solutionfor his pain due to his history. He has been using marijuana with transient pain relief and expressed interest in trialing medical cannabis. However, when I explained that I would collect his urine today (with the expectation that he not be using any illegal drugs or unprescribed substances) and that I would require him to come back every 3 months to determine whether he is working towards his functional goals, he reported that he could not provide a urine sample today and would rather obtain cannabis from a provider located closer to his home. I think he would be an appropriate candidate for the use of medical cannabis if he was monitored frequently for misuse/diversion, progress towards functional goals, and was actively engaged in counseling. PLAN/RECOMMENDATIONS 1. Discussed that he is taking Tylenol too often, and that he should limit his use to 3g per day. Advised that he is putting himself at risk for liver damage, etc., especially at a time when his liver is finally healing from hepatitis C. 2. Recommend trialing an NSAID (celebrex, meloxicam, diclofenac) if his PCP determines that NSAIDs are appropriate. Could also trial diclofenac gel applied to the joints if he cannot tolerate an oral NSAID due to comorbidities or side effects. Recommend also trialing duloxetine titrated up to 60mg daily for chronic pain. He was not interestedin this at today's visit- states he is leery of pills. 3. Encouraged smoking cessation. Discussed the harmful effects of smoking and nicotine when managingchronic pain- explained that nicotine inhibits the blood's ability to deliver oxygen and nutrients to bones, nerves, muscles, etc., which consequently inhibits and delays healing. Advised that smoking cessation is essential for maximizing the effects of chronic pain treatments and therapies. Also explained that smoking increases the perception of pain. 4. Discussed medical cannabis as a good option for his pain control, and advised that it may also help improve his mood, function, and sleep. He is already using it recreationally with him transient relief. I explained to him that there is still a potential for misuse and addiction with medical cannabis, so I would collect random urine drug tests, set functional goals, and follow up with him frequently to ensure that it is helping him and not hurting him. I explained to him that I would require a urine sample today, and that if he was not able to provide one then I would not be willing to complete the cannabis certification for him in the future. He denied illicit drug use, but was unwilling to attempt to provide a sample. I offered to get him some water and allow him to sit in the waiting room until he could provide a sample, but he stated I don't think that's going to work, I think the longerI sit the more agitated I'll get.. I need to get home. He then told me that he has been talking to his primary care provider's office about medical cannabis, and he would prefer to obtain it from themanyway, since they were located closer to his house. 5. Recommend that he restart counseling for history of anxiety, depression, substance misuse, and chronic pain. He reports he is currently in the process of setting this up with a counselor near his home. Mahin Ramos had the opportunity to ask questions and indicated that all questions were answered to his satisfaction. Renata eLhman, MSN, BOTTLE PACKING MACHINE CLEANER-BC, FULL TIME STAFF INTERPRETER Nurse Practitioner [facility] documented in this encounter Plan of Treatment Upcoming Encounters Date Type Specialty Care Team Description 12/11/2021 Appointment Radiology 12/11/2021 Office Visit Orthopaedics Marion Tavera APRN [facility] ORTHOPAEDIC SURG [place], [place] [address] (Wo rk) 01/15/2022 Appointment Radiology Stiven Cervantes MD [facility] Pulmonary Medici [place], [place] [address] (Wo rk) Scheduled Procedures Name [...] encounter Visit Diagnoses Diagnosis Chronic pain of multiple joints Pain in joint, multiple sites Avascular necrosis Aseptic necrosis of bone, site unspecifi ed documented in this encounter Care Teams Life Sciences Manager Relationship Specialty Start Date End Date Azalia Peña APRN PCP - General 11/19/13 03/19/17 documented as of this encounter
--- OUTSIDE RECORDS SUMMARY | 2021-11-30 08:23 | XMS_ITS | Encounter Summary ---
:1955 Author Organization [facility] Address [address] [place] [address] Care Team Providers Name Role Phone Laura Cherry APRN Primary Care Provider Encounter Details Date Type Department Care Team Description 05/15/2017 Hospital Encounter Pulmonology at [facility] pulmonary disease, [place] [phone] Social History Tobacco Use Types Packs/Day [...] tablet by 0 08/21 tablet mouth daily. nystatin (MYCOSTATIN) 0 03/13/2017 100,000 unit/mL Suspension buPROPion (WELLBUTRIN SR) Take 100 mg by mouth 0 05/29/2018 100 mg Tablet Sustained daily. Release sofosbuvir-velpatasvir Take 1 tablet by 28 tablet 2 017 05/29/2018 (EPCLUSA) 400-100 mg mouth daily. TabletIndications: Chronic hepatitis C without hepatic coma acetaminophen (TYLENOL) Take 1 tablet by 0 201503/01/2020 500 mg Tablet mouth every 8 hours. traMADol (ULTRAM) 50 mg Take 2 tablets by 56 tablet 0 12/1309/08/2017 Tablet mouth every 6 hours. #56 for a 7 day supply. DULERA 100-5 inhale 2 puffs by 0 11/07/201511/19 mcg/actuation HFA Aerosol mouth prn Inhaler furosemide (LASIX) 40 mg Take 1 tablet by 0 09/1009/08/2017 Tablet mouth 2 times daily. Reported on 07/08/2016 gabapentin (NEURONTIN) Take 2 tablets by 0 201403/01/2020 600 mg Tablet mouth 3 times daily. documented as of this encounter Procedure Notes Brooks Stern Jr., MD - 05/15/2017 11:59 PM ESTAssociated Order(s): PULMONARY FUNCTION TEST Pulmonary Function Testing Spirometry demonstrates a mild airflow obstruction. Diffusing capacity is mildly reduced. Oxygen saturation is normal at rest on room air. There is ambulatory desaturation which corrects with use of 2LNC O2. The patient demonstrates ability to generate the minimum airflow necessary to use: YES - Low resistance devices (most metered dose inhalers or respimats) YES - Medium resistance devices (most dry powder inhalers) YES - High resistance device (handihaler) Note: Excessive flow rate is associated with decreased inhaler effectiveness. Brooks Stern MD Pulmonary Medicine documented in this encounter Miscellaneous Notes Addendum Note - Brooks Stern Jr., MD - 05/15/2017 11:59 PM ESTEncounter addended by: Brooks Stern Jr., MD on: 08/21/2017 9:10 AM
Actions taken: Sign clinical note documented in this encounter Plan of Treatment Upcoming Encounters Date Type Specialty Care Team Description 12/11/2021 Appointment Radiology 12/11/2021 Office Visit Orthopaedics Marion Tavera APRN [facility] ORTHOPAEDIC SURG [place], [place] [address] (Wo rk) 01/15/2022 Appointment Radiology Stiven Cervantes MD [facility] Pulmonary Medici [place], [place] [address] (Wo rk) Scheduled Procedures Name [...] Name Priority Date/Time Associated Diagnosis Comme nts PULMONARY FUNCTION Routine 08/21/2017 9:10 AM Chronic obstruct bg Results for this TEST EDT pulmonary disease, procedure are in unspecified COPD the results type section. documented in this encounter Results Pulmonary Function Testing (08/21/2017 9:10 AM EDT) Narrative Brooks Stern Jr., MD - 08/21/2017 9: 10 AM EDT Brooks Stern Jr., MD ? 08/21/2017 ??9:10 AM Pulmonary Function Testing Spirometry demonstrates a mild airflow o bstruction. ??Diffusing capacity is mildly reduced. ??Oxygen sat uration is normal at rest on room air. ??There is ambulatory desat uration which corrects with use of 2L NC O2. The patient demonstrates ability to gene rate the minimum airflow necessary to use: YES - Low resistance devices (most meter ed dose inhalers or respimats) YES - Medium resistance devices (most dr y powder inhalers) YES - High resistance device (handihaler ) Note: Excessive flow rate is associated with decreased inhaler effectiveness. Brooks Stern MD Pulmonary Medicine Stiven Cervantes MD PFT ORDERABLES documented in this encounter Visit Diagnoses Diagnosis Chronic obstructive pulmonary disease, u nspecified COPD type documented in this encounter Care Teams Wind Farm Support Specialist Relationship Specialty Start Date End Date Laura Cherry APRN PCP - General Family Medicine 03/20/17 04/06/[address] [place] [id number] documented as of this encounter
--- OUTSIDE RECORDS SUMMARY | 2021-11-30 08:23 | XMS_ITS | Encounter Summary ---
:1955 Author Organization [facility] [place] [address] Care Team Providers Name Role Phone Azalia Peña APRN Primary Care Provider Encounter Details Date Type Department Care Team Description 07/25/2016 Telephone [facility]ology at [facility] Julia Lomeli [facility] [place] [phone] Social History Tobacco Use Types Packs/Day [...] Telephone Encounter - Julia Lomeli RN - 07/25/2016 11:12 AM EDT Pt on day ~ 14 of Epclusa for hepatitis C treatment. 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 So I think I have what she has. I just wanted to let you know and make sure it's not the Epclusa. I had been feeling great taking it, so I don't think it is. + vomiting x 3 past 24 hours + diarrhea past 2 days / no blood - no fever - able to drink water, broth - has not vomited up any Epclusa tablets that he can tell Has appointment with pcp on Friday, July 29. He also plans to call pcp today to 'check in'. Advised to stay hydrated, sips of water/ broth hourly as tolerated, dry toast/crackers when stomach settles. If symptoms worsen /do not improve over next 24-48 hours, call pcp back. Might need stool testing to r/o causes of diarrhea. Pt verbalizes understanding of instructions and has no further questions presently. documented in this encounter Plan of Treatment Upcoming Encounters Date Type Specialty Care Team Description 12/11/2021 Appointment Radiology 12/11/2021 Office Visit Orthopaedics Marion Tavera APRN [facility] DR ORTHOPAEDIC SURG [place], [place] [address] (Wo rk) 01/15/2022 Appointment Radiology Stiven Cervantes MD [facility] Pulmonary Medici [place], [place] [address] (Wo rk) Scheduled Procedures [...] on filedocumented in this encounter Care Teams Caustic Liquor Maker Relationship Specialty Start Date End Date Azalia Peña APRN PCP - General 11/19/13 03/19/17 documented as of this encounter
--- OUTSIDE RECORDS SUMMARY | 2021-11-30 08:23 | XMS_ITS | Encounter Summary ---
:1955 Author Organization [facility] [place] [address] Care Team Providers Name Role Phone Ion Peña APRN Primary Care Provider Reason for Visit Reason Comments Pain Management Encounter Details Date Type Department Care Team Description 02/08/2016 Office Visit Pain Management at [facility], Acu te post-operative Mike GONZALEZ pain [address] [place] [id number] Social History Tobacco Use Types Packs/Day Years Used Date Former Smoker Cigarettes 0.1 42 Quit: 09/28/19 16 Smokeless Tobacco: Former User Comments: STATES THAT HE STOPPED TWO MON S AGO 04/2015 Alcohol Use Standard Drinks/Week Comments [...] Sign Reading Time Taken Comments Blood Pressure 147/82 02/08/2016 9:40 AM EDT Pulse 62 02/08/2016 9:40 AM EDT Temperature - - Respiratory Rate - - Oxygen Saturation 96% 02/08/2016 9:40 AM EDT Inhaled Oxygen Concentration - - Weight 93.9 kg (207 lb) 02/08/2016 9:40 AM EDT Height 174 cm (5' 8.5) 02/08/2016 9:40 AM EDT Body Mass Index 31.02 02/08/2016 9:40 AM EDT documented in this encounter Progress Notes Renata Lehman, ERP SPECIALIST - 02/08/2016 9:45 AM EDT PAIN CLINIC FOLLOW-UP DATE OF VISIT 02/08/2016 Patient Mahin Ramos 1955 REFERRING PROVIDER Ion Peña APRN [facility] [address] [place] [address] PRIMARY CARE PROVIDER ION PEÑA APRN [place] and [place] Prescription Monitoring Program were checked and no [...] knee). He saw Dr. Lopez in the [facility] on 05/26/15 forevaluation and plan [...] He has been through treatment at the [facility] multiple times in the past and [...] functional history since previous visit? No - Still in a lot of pain-- feet, ankles, knee, back, and shoulder. Every one of them are rotten..mybones, you know.. All I can do it stay in bed. I think I need to go back on the methadone- it gave me relief. PAIN ASSESSMENT: - Constant burning and deep bone pain in left knee - + chronic neuropathy with numbness in bilateral feet, no weakness in lower extremities - Average pain in past week: 5-810, with medications MEDICATIONS Medications 02/08/16 0944 Medication Sig Taking? nalOXone (NARCAN) 1 mg/mL Syringe FOR OPIOID OVERDOSE, SPRAY 1 MILLILTER IN EACH NOSTRIL. REPEAT AF... (REFER TO PRESCRIPTION NOTES). oxyCODONE (ROXICODONE) 20 mg Tablet Take 0.5-1 tablets by mouth every 4 hours as needed. No more than 2 tab per day. Miscellaneous Medical Supply [facility] Script for two intranasal mucosal atomizing devices for use with naloxone syringe. acetaminophen (TYLENOL) 500 mg Tablet Take 1 tablet by mouth every 8 hours. traMADol (ULTRAM) 50 mg Tablet Take 2 tablets by mouth every 6 hours. #56 for a 7 day supply. DULERA 100-5 mcg/actuation HFA Aerosol Inhaler inhale 2 puffs by mouth twice a day tamsulosin (FLOMAX) 0.4 mg Capsule, Sust. Release 24 hr hydrOXYzine (ATARAX) 50 mg Tablet take 1 tablet by mouth three times a day if needed furosemide (LASIX) 40 mg Tablet Take 1 tablet by mouth daily. gabapentin (NEURONTIN) 600 mg Tablet Take 2 tablets by mouth 3 times daily. potassium chloride (KLOR-CON) 20 mEq Packet Take 20 mEq by mouth daily. omeprazole (PRILOSEC) 40 mg Capsule, Delayed Release(E.C.) Take 40 mg by mouth daily. buPROPion (WELLBUTRIN XL) 300 mg 24 hr tablet take 1 tablet by mouth every morning multivitamin (THERAGRAN) tablet Take 1 tablet by mouth daily. atenolol (TENORMIN) 50 mg tablet Take 1 tablet by mouth 2 times daily. amlodipine (NORVASC) 5 mg tablet Take 1 tablet by mouth daily. ADVERSE DRUG REACTIONS Allergies as of 02/08/2016 - Review Complete 02/08/2016 Allergen Reaction Noted ??? Morphine Other (See Comments) 06/13/2015 CURRENT THERAPIES: - Oxycodone 20mg tablets, 0.5-1 tablet, not to exceed two tabs/day - Acetaminophen 500mg every eight hours - Tramadol 100mg every six hours, #56 -- has been on chronic tramadol prescribed by PCP (100mg threetimes daily for chronic pain) - Gabapentin 1200mg three times per day - PT exercises on his own PAST THERAPIES: - Methadone - Physical therapy- just ended REVIEW OF SYSTEMS: Constitutional: denies fever, chills, weight changes, fatigue, no fainting spells recently HEENT: denies headaches, vision changes,difficulty hearing Cardiac: denies chest pain or palpitations Lungs: denies shortness of breath, wheezing, cough GI: denies constipation ordiarrhea, denies nausea or vomiting, black or bloody stool, loss of control of bowel : denies urinary changes or incontinence, + frequency due to Lasix Neuro: denies changes in attention or orientation; denies dizziness, seizures, tremors Muscloskeletal: denies joint swelling, no ambulatory aides, no falls Skin: + healing surgical incision on left knee Psychological/Mood: + history of anxiety/depression, sees counselor once per month Sleep: hard time falling asleep, only sleeping about 2 hours at a time (wakes up at about 4am) FUNCTIONAL /SOCIAL [...] otherwise) PHYSICAL EXAMINATION Body mass index is 31.02 kg/(m^2). Visit Vitals ??? BP 147/82 ??? Pulse 62 ??? Ht 174 cm (5' 8.5) ??? Wt 93.9 kg (207 lb) Appearance/ Behavior Well groomed, good eye contact, relaxed, cooperative, normal speech, no acute distress. Seen alone. HEENT Sclera non-icteric, conjunctiva clear. Hearing grossly intact. Lungs Clear to ausculation bilaterally Cardiovascular Regular rate and rhythm without murmur Musculoskeletal Gait antalgic. No ambulatory aides ASSESSMENT Mr. Ramos has acute post-operative pain s/p left TKA on 12/13/15. He has a long history of opioid dependence and alcoholism, for which he was maintained on methadone for thirteen years in the past, as well as [facility]. He currently denies using [...] post-operative opioids, as they are not a assistant terminal manager option for him. He expresses concern about [...] Decreased Oxycodone 20mg tablets, not to exceed 1 tabs/day for the next 14 days- I gave him a prescription for #14 tablets (He understands that he can break them in half, as well). Then his acute post-operative wean will be finished. Although he expresses that he is in constant, severe pain and that methadone has helped in the past,I had a long discussion with him about the reasons for why we will not prescribe him opioids for chronic pain. I have advised him that he is free to get a second opinion somewhere else if he wishes. I encouraged him to continue daily stretching, using tramadol, and developing self-management strategies. I also advised him that if he needs to have surgery in the future, we would be able to see him to taper his acute post-operative doses, just as we have done this time. 2. Follow up as needed in the future. Mahin Ramos had the opportunity to ask questions and indicated that all questions were answered to his satisfaction. Renata Lehman, MSN, SYNTHETIC CHEMIST-BC, ERP SPECIALIST Nurse Practitioner [facility] documented in this encounter Plan of Treatment Upcoming Encounters Date Type Specialty Care Team Description 12/11/2021 Appointment Radiology 12/11/2021 Office Visit Orthopaedics Marion Tavera APRN [facility] ORTHOPAEDIC SURG [place], [place] [address] (Wo rk) 01/15/2022 Appointment Radiology Stiven Cervantes MD [facility] Pulmonary Medici [place], [place] [address] (Wo rk) Scheduled Procedures Name Priority Associated Diagnoses Date/Time DEBRIDEMENT SKIN, SUBCU, MUSCLE, R great toe amp utation, wound LOWER EXTREMITY (WRVU 2.7) closure MODIFIER WOUND VAC R great toe amputation, wound closure documented as of this encounter Visit Diagnoses Diagnosis Acute post-operative pain documented in this encounter Care Teams Business Insight And Analytics Manager Relationship Specialty Start Date End Date Ion Peña APRN PCP - General 11/19/13 03/19/17 documented as of this encounter
--- OUTSIDE RECORDS SUMMARY | 2021-11-30 08:23 | XMS_ITS | Encounter Summary ---
:1955 Author Organization [facility] Address [address] [place] [address] Care Team Providers Name Role Phone Azalia Peña APRN Primary Care Provider Reason for Visit Reason Onset Date Comments Other 07/09/2016 Medication Assistanc e [id number] charge request-approved Encounter Details Date Type Department Care Team Description 07/09/2016 Telephone Care Management Padmini Garcias Other ([facility] Assistanc e Drive [id number] [address] request-approved) [phone] Social History Tobacco Use Types Packs/Day Years [...] this encounter Miscellaneous Notes Telephone Encounter - Padmini Garcias - 07/09/2016 11:19 AM EST Medication Assistance [id number] charge request-approved 07/08/26-[place] [facility]-Discussed w/Angelika Serna- approved co-pay of $5.00 for Epclusa for pt-this will allow pharm to mail to pt. Emailed Emergency Fund approval to Speciality pharm. 07/09/16-mailed pt letter w/return envelope to mail co-pay of $5.00 to Care Management.[email or web address] documented in this encounter Plan of Treatment Upcoming Encounters Date Type Specialty Care Team Description 12/11/2021 Appointment Radiology 12/11/2021 Office Visit Orthopaedics Marion Tavera APRN [facility] [address] ORTHOPAEDIC SURG [place], [place] [address] (Wo rk) 01/15/2022 Appointment Radiology Stiven Cervantes MD [facility] Pulmonary Medici [place], [place] [address] (Wo rk) Scheduled Procedures Name [...] on filedocumented in this encounter Care Teams Fittings Tightener Relationship Specialty Start Date End Date Azalia Peña APRN PCP - General 11/19/13 03/19/17 documented as of this encounter
--- OUTSIDE RECORDS SUMMARY | 2021-11-30 08:23 | XMS_ITS | Encounter Summary ---
:1955 Author Organization [facility] Address [place] [address] Care Team Providers Name Role Phone Azalia Peña APRN Primary Care Provider Encounter Details Date Type Department Care Team Description 01/16/2016 [place] [facility] [place]amud[place] Ankle fracture, left; [address] MD Bilateral chronic knee pain; [place], [place] [facility] Avascular necro sis bilateral knees [id number] CENTER [phone] [place] [address] Social History Tobacco Use Types Packs/Day Years [...] tablet by 0 08/21 tablet mouth daily. nalOXone (NARCAN) 1 Reported on 06/13/2016 0 201508/20/2016 mg/mL Syringe oxyCODONE (ROXICODONE) Take 0.5-1 tablets by 33 tablet 0 01/25/2016 20 mg Tablet mouth every 4 hours as needed. No more than 3 tablets X 11 days Miscellaneous Medical Script for two 2 each 0 12/20/2015 08/28/2016 Supply [facility] intranasal mucosal atomizing devices for use with naloxone syringe. acetaminophen (TYLENOL) Take 1 tablet by 0 201503/01/2020 500 mg Tablet mouth every 8 hours. traMADol (ULTRAM) 50 mg Take 2 tablets by 56 tablet 0 12/1309/08/2017 Tablet mouth every 6 hours. #56 for a 7 day supply. DULERA 100-5 inhale 2 puffs by 0 11/07/201511/19 mcg/actuation HFA mouth prn Aerosol Inhaler tamsulosin [...] Orthopaedics Marion Tavera APRN [facility] ORTH[facility]ED[facility] [place], [place] [address] (Wo rk) 01/15/2022 Appointment Radiology Stiven Cervantes MD [facility] Pulmonary Medici [place], [place] [address] (Wo rk) Scheduled Procedures Name Priority Associated Diagnoses Date/Time DEBRIDEMENT SKIN, SUBCU, MUSCLE, R great toe amp utation, wound LOWER EXTREMITY (WRVU 2.7) closure MODIFIER WOUND VAC R great toe amputation, wound closure documented as of this encounter Procedures Procedure Name Priority Date/Time Associated Diagnosis Comme nts XR KNEE STANDING Routine 01/16/2016 1:24 PM Ankle fractu re, left Results for this ALIGNMENT AP LAT EDT Bilateral chronic proced ure are in SKYLINE RIGHT knee pain the results Avascular necrosis section. bilateral knees documented in this encounter Results XR TKA First Po Visit Alignment AP Lat Lostant Right (01/16/2016 1:24 PM EDT) Anatomical Region Laterality Modality Knee Right Digital Radiography Specimen (Source) Anatomical Location Collection Method / Collectio n Time Received Time / Laterality Volume Impressions 01/16/2016 2:15 PM EDT Postsurgical and degenerative change as described. Narrative 01/16/2016 2:15 PM EDT EXAMINATION: XR KNEE STANDING ALIGNMENT AP LAT SKYLINE RIGHT CLINICAL HISTORY: History of knee replac ement TECHNIQUE: Separate images of the pelvis , knees and feet were acquired in the AP projection with the patient standing. Th yordy images were stitched together to form a composite image of the pelvis and legs allowing for evaluation of lower extremity alignment in the weight bearin g position. 3 additional views of the knees. COMPARISON: 12/13/2015. 10/26/2015. FINDINGS: Left knee prosthesis in place. Postsurgi karla changes have essentially resolved. Fragmentation of bone, mild, of the medi al aspect of the proximal [place] left tibia again appreciated and stable. Smal l joint effusion. No hardware complications. Medial joint space loss, subchondral change and lucencies of the right knee again appreciated, similar to comparison. The left functional axis is mildly media l. Left hip and knee prosthesis are identified. The right functional axis is medial. Right hip prosthesis in place. Procedure Note Arjun Sparks MD - 01/16/2016Format ting of this note might be different from the original. EXAMINATION: XR KNEE STANDING ALIGNMENT AP LAT SKYLINE RIGHT CLINICAL HISTORY: History of knee replac ement TECHNIQUE: Separate images of the pelvis , knees and feet were acquired in the AP projection with the patient standing. Th yordy images were stitched together to form a composite image of the pelvis and legs allowing for evaluation of lower extremity alignment in the weight bearin g position. 3 additional views of the knees. COMPARISON: 12/13/2015. 10/26/2015. FINDINGS: Left knee prosthesis in place. Postsurgi karla changes have essentially resolved. Fragmentation of bone, mild, of the medi al aspect of the proximal [place] left tibia again appreciated and stable. Smal l joint effusion. No hardware complications. Medial joint space loss, subchondral change and lucencies of the right knee again appreciated, similar to comparison. The left functional axis is mildly media l. Left hip and knee prosthesis are identified. The right functional axis is medial. Right hip prosthesis in place. IMPRESSION Postsurgical and degenerative change as described. Gordon Mallory MD IMG DX ORDERABLES documented in this encounter Visit Diagnoses Diagnosis Ankle fracture, left Unspecified closed fracture of ankle Bilateral chronic knee pain Pain in joint, lower leg Avascular necrosis bilateral knees Aseptic necrosis of bone, site unspecifi ed documented in this encounter Care Teams Gettering Operator Relationship Specialty Start Date End Date Azalia Peña APRN PCP - General 11/19/13 03/19/17 documented as of this encounter
--- OUTSIDE RECORDS SUMMARY | 2021-11-30 08:23 | XMS_ITS | Encounter Summary ---
:1955 Author Organization [facility] [place] [address] Care Team Providers Name Role Phone Azalia Peña APRN Primary Care Provider Encounter Details Date Type Department Care Team Description 08/14/2016 Hospital Encounter XRay at [facility] Gordon Mallory Presence of left artificial knee joint; [address] MD Chronic pain of right knee [facility] [id number] [place] [phone] [place] [address] Social History Tobacco Use Types Packs/Day Years [...] 100 mg daily. (In addition Tablet Sustained Release 50mg tab, total dose: 24 hr 150mg daily) multivitamin (THERAGRAN) Take 1 tablet by 0 08/21 tablet mouth daily. VIAGRA 100 mg Tablet Take 1 tablet by 0 7 08/28/2016 mouth as needed. sofosbuvir-velpatasvir Take 1 tablet by 28 tablet 2 017 05/29/2018 (EPCLUSA) 400-100 mg mouth daily. TabletIndications: Chronic hepatitis C without hepatic coma nalOXone (NARCAN) 1 Reported on 06/13/2016 0 201508/20/2016 mg/mL Syringe Miscellaneous Medical Script for two 2 each 0 12/20/2015 08/28/2016 Supply [facility] intranasal mucosal atomizing devices for use with [...] APRN [facility] DR ORTHOPAEDIC SURG [place], [place] [address] (Wo rk) 01/15/2022 Appointment Radiology Stiven Cervantes MD [facility] Pulmonary Medici [place], [place] [address] (Wo rk) Scheduled Procedures Name [...] Date/Time Associated Diagnosis Comme nts XR KNEE AP AND LAT Routine 08/14/2016 11:15 AM Presence of lef t Results for this BILAT EDT artificial knee procedure ar e in joint the results Chronic pain of section. right knee documented in this encounter Results XR Knee 1-2 Views Bilat (Generic) (08/14/2016 11:15 AM EDT) Anatomical Region Laterality Modality Knee Bilateral Digital Radiography Specimen (Source) Anatomical Location Collection Method / Collectio n Time Received Time / Laterality Volume Impressions 08/14/2016 12:06 PM EDT 1. ??Left total knee arthroplasty without acute change or complication. 2. ??Osteonecrosis of the right tibia an d femur. Narrative 08/14/2016 12:06 PM EDT EXAMINATION: XR KNEE 1-2 VIEWS BILAT (GENERIC) CLINICAL HISTORY: LEFT TKA and RIGHT KNE E PAIN TECHNIQUE: AP and lateral views of the k nees bilaterally COMPARISON: 01/16/2016 and 12/13/2015 FINDINGS: A constrained longstem total knee arthro plasty is in place at the left knee. No change or acute complication is seen. At the right knee there is sclerosis in the distal femur and proximal tibia consistent with avascular necrosis. This is unchanged. Marginal osteophytes are again noted. Minimal joint space narrowi ng is apparent. No large effusion or other evidence of acute injury is seen. Procedure Note Tate Borja MD - 08/14/2016Forma tting of this note might be different from the original. EXAMINATION: XR KNEE 1-2 VIEWS BILAT (GE NERIC) CLINICAL HISTORY: LEFT TKA and RIGHT KNE E PAIN TECHNIQUE: AP and lateral views of the k nees bilaterally COMPARISON: 01/16/2016 and 12/13/2015 FINDINGS: A constrained longstem total knee arthro plasty is in place at the left knee. No change or acute complication is seen. At the right knee there is sclerosis in the distal femur and proximal tibia consistent with avascular necrosis. This is unchanged. Marginal osteophytes are again noted. Minimal joint space narrowi ng is apparent. No large effusion or other evidence of acute injury is seen. IMPRESSION 1. Left total knee arthroplasty without acute change or complication. 2. 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 Gordon Mallory MD IMG DX ORDERABLES documented in this encounter Visit Diagnoses Diagnosis Presence of left artificial knee joint Knee joint replacement by other means Chronic pain of right knee documented in this encounter Care Teams Poultry Farm Supervisor Relationship Specialty Start Date End Date Azalia Peña APRN PCP - General 11/19/13 03/19/17 documented as of this encounter
--- OUTSIDE RECORDS SUMMARY | 2021-11-30 08:23 | XMS_ITS | Encounter Summary ---
:1955 Author Organization [facility] [place] [address] Care Team Providers Name Role Phone Azalia Peña APRN Primary Care Provider Encounter Details Date Type Department Care Team Description 08/20/2016 Hospital Encounter XRay at [facility] Jose ArmandorafBraxton Avascular necrosis [address] [place] [address] Dr Alvin MD bilateral knees [place] [id number] [place] [address] [place] [address] Social History Tobacco Use Types Packs/Day Years [...] tablet by 0 08/21 tablet mouth daily. buPROPion (WELLBUTRIN Take 100 mg by mouth 0 05/29/2018 SR) 100 mg Tablet daily. Sustained Release VIAGRA 100 mg Tablet Take 1 tablet by 0 7 08/28/2016 mouth as needed. sofosbuvir-velpatasvir Take 1 tablet by 28 tablet 2 017 05/29/2018 (EPCLUSA) 400-100 mg mouth daily. TabletIndications: Chronic hepatitis C without hepatic coma Miscellaneous Medical Script for two 2 each 0 12/20/2015 08/28/2016 Supply [facility] intranasal mucosal atomizing devices for use with naloxone syringe. acetaminophen (TYLENOL) Take 1 tablet by 0 201503/01/2020 500 mg Tablet mouth every 8 hours. traMADol (ULTRAM) 50 mg Take 2 tablets by 56 tablet 0 12/1309/08/2017 Tablet mouth every 6 hours. #56 for a 7 day supply. DULERA 100-5 inhale 2 puffs by 0 11/07/201511/19 mcg/actuation HFA mouth prn Aerosol Inhaler hydrOXYzine (ATARAX) 50 Reported on 07/08/2016 0 0 10/06/2015 08/28/2016 mg Tablet furosemide (LASIX) 40 mg Take 1 tablet by 0 09/1009/08/2017 Tablet mouth 2 times daily. Reported on 07/08/2016 gabapentin (NEURONTIN) Take 2 tablets by 0 201403/01/2020 600 mg Tablet mouth 3 times daily. atenolol (TENORMIN) 50 Take 1 tablet by 90 tablet 3 013 08/28/2016 mg tablet mouth 2 times daily. documented as of this encounter Plan of Treatment Upcoming Encounters Date Type Specialty Care Team Description 12/11/2021 Appointment Radiology 12/11/2021 Office Visit Orthopaedics Marion Tavera APRN [facility] ER DR ORTHOPAEDIC SURG [place], [place] [address] (Wo rk) 01/15/2022 Appointment Radiology Stiven Cervantes MD [facility] Pulmonary Medici n[place], [place] [address] (Wo rk) Scheduled Procedures Name Priority Associated [...] Esquivel, Understanding Action Plan 9:07 AM EDT) [facility] Note: Formatting of this note might be d ifferent from the original. Patient Goal: To experience less side ef fects than his past regimen of Peg and Ribavirin Timeframe to meet goal: 3 months of ther apy documented as of this encounter Procedures Procedure Name Priority Date/Time Associated Diagnosis Comme nts XR SHOULDER BILAT Routine 08/20/2016 9:30 AM Avascular necrosi s Results for this EDT bilateral knees procedure ar e in the results section. documented in this encounter Results XR shoulder - Bilateral (GENERIC) (08/20/2016 9:30 AM EDT) Anatomical Region Laterality Modality Shoulder Bilateral Digital Radiography Specimen (Source) Anatomical Location Collection Method / Collectio n Time Received Time / Laterality Volume Impressions 08/20/2016 11:41 AM EDT Impression: . 1. Avascular necrosis of the RIGHT shoul angie with collapse of the articular surface of the humeral head and superimp osed secondary degenerative change. 2. Degenerative changes of the LEFT andry ohumeral joint with high riding humeral head suggestive of rotator cuff injury, indeterminate age. Narrative 08/20/2016 11:41 AM EDT EXAMINATION: XR SHOULDER BILAT (GENERIC) CLINICAL HISTORY: Pain; history of alcoh ol dependence. Known extensive involvement of osteonecrosis throughout the skeleton. TECHNIQUE: 4 views right shoulder ?? COMPARISON: 06/22/2009, 09/01/2008 FINDINGS: Right shoulder: Examination demonstrates extensive deformity and flattening of the superior aspect of the humeral head consistent with collapse of the articular surface. Degenerative changes right glenohumeral joint are also noted. LEFT shoulder: No evidence of fracture o r dislocation. Degenerative changes of the glenohumeral joint characterized by joint space narrowing, subchondral sclerosis and small osteophytes. ??There is mild elevation of the humeral head in relation to the acromion suggestive of r otator cuff injury, of indeterminate age. ??Soft tissue calcification seen ad jacent to the left acromion. Left AC Joint: ??Normal alignment Procedure Note Janine Escalante MD - 7 EXAMINATION: XR SHOULDER BILAT (GENERIC) CLINICAL HISTORY: Pain; history of alcoh ol dependence. Known extensive involvement of osteonecrosis throughout the skeleton. TECHNIQUE: 4 views right shoulder COMPARISON: 06/22/2009, 09/01/2008 FINDINGS: Right shoulder: Examination demonstrates extensive deformity and flattening of the superior aspect of the humeral head consistent with collapse of the articular surface. Degenerative changes right glenohumeral joint are also noted. LEFT shoulder: No evidence of fracture o r dislocation. Degenerative changes of the glenohumeral joint characterized by joint space narrowing, subchondral sclerosis and small osteophytes. There i s mild elevation of the humeral head in relation to the acromion suggestive of r otator cuff injury, of indeterminate age. Soft tissue calcification seen shari cent to the left acromion. Left AC Joint: Normal alignment IMPRESSION Impression: . 1. Avascular necrosis of the RIGHT shoul angie with collapse of the articular surface of the humeral head and superimp osed secondary degenerative change. 2. Degenerative changes of the LEFT andry ohumeral joint with high riding humeral head suggestive of rotator cuff injury, indeterminate age. Braxton Foy MD IMG DX ORDERABLES documented in this encounter Visit Diagnoses Diagnosis Avascular necrosis bilateral knees Aseptic necrosis of bone, site unspecifi ed documented in this encounter Care Teams Paediatrician Relationship Specialty Start Date End Date Azalia Peña APRN PCP - General 11/19/13 03/19/17 documented as of this encounter
--- OUTSIDE RECORDS SUMMARY | 2021-11-30 08:23 | XMS_ITS | Encounter Summary ---
:1955 Author Organization [facility] [place] [address] Care Team Providers Name Role Phone Ion Peña APRN Primary Care Provider Reason for Visit Reason Comments Pain Management Knee Pain Encounter Details Date Type Department Care Team Description 01/11/2016 Office Visit Pain Management at [facility], Acu te post-operative Mike GONZALEZ pain [facility] [place], [place] [phone] Social History Tobacco Use Types Packs/Day Years [...] Sign Reading Time Taken Comments Blood Pressure 154/94 01/11/2016 11:03 AM EDT Pulse 70 01/11/2016 11:03 AM EDT Temperature - - Respiratory Rate - - Oxygen Saturation 100% 01/11/2016 11:03 AM EDT Inhaled Oxygen Concentration - - Weight 100.2 kg (221 lb) 01/11/2016 11:03 AM EDT Height 175.3 cm (5' 9) 01/11/2016 11:03 AM EDT Body Mass Index 32.64 01/11/2016 11:03 AM EDT documented in this encounter Progress Notes Renata Lehman, OPTICAL LABORATORY MANAGER - 01/11/2016 11:00 AM EDT PAIN CLINIC FOLLOW-UP DATE OF VISIT 01/11/2016 Patient Mahin Ramos 1955 REFERRING PROVIDER Ion Peña APRN [facility] [address] [place] [id number] PRIMARY CARE PROVIDER ION PEÑA APRN [place] Prescription Monitoring Program were checked and no [...] knee). He saw Dr. Lopez in the [facility] on 05/26/15 forevaluation and plan [...] He has been through treatment at the [facility] multiple times in the past and [...] 1200mg three times per day At his last visit with Ms. Guzman on 01/01/16, she [...] functional history since previous visit? No - Swelling in left knee has gone down. Still continues sharp pain in left knee and some muscle/nerve pain in the left anterior thigh radiating to the left foot. - Has surgical follow up on 01/15- states that he will need more surgery in the near future, especially on his right femur PAIN ASSESSMENT: - Constant burning and deep bone pain in left knee - + chronic neuropathy with numbness in bilateral feet, no weakness in lower extremities - Average pain in past week: 5-9/10, with medications MEDICATIONS Medications 01/11/16 1104 Medication Sig Taking? oxyCODONE (ROXICODONE) 20 mg Tablet Take 0.5-1 tablets by mouth every 4 hours as needed. No more than 4 tablets (40 mg) per day X 14 days Yes nalOXone (NARCAN) 1 mg/mL Syringe For opioid overdose,spray 1 mL in each nostril. Repeat after 3-5 minutes if no or minimal response. Call 911 before administration. Yes Miscellaneous Medical Supply [facility] Script for two intranasal mucosal atomizing devices [...] Yes ADVERSE DRUG REACTIONS Allergies as of 01/11/2016 - Review Complete 01/11/2016 Allergen Reaction Noted ??? Morphine Other (See Comments) 06/13/2015 CURRENT THERAPIES: - Oxycodone 20mg tablets, 0.5-1 tablet, not to exceed four tabs/day -- taking full tab at 11pm, 3:30am, 7:30am, and then sometime during the day - Acetaminophen 500mg every eight hours - Tramadol 100mg every six hours, #56 -- has been on chronic tramadol prescribed by PCP (100mg threetimes daily for chronic pain) - Gabapentin 1200mg three times per day - Physical therapy- has started post-op PT three times per week PAST THERAPIES: - Methadone REVIEW OF SYSTEMS: [...] dizziness, seizures, tremors Muscloskeletal: denies joint swelling, occasional use of walkder, denies falls Skin: + healing surgical incision on left knee Psychological/Mood: + history of anxiety/depression, sees counselor once per month Sleep: hard time falling asleep, but has improved lately FUNCTIONAL /SOCIAL Lives with: of 42 years [...] otherwise) PHYSICAL EXAMINATION Body mass index is 32.64 kg/(m^2). Visit Vitals ??? BP (!) 154/94 ??? Pulse 70 ??? Ht 175.3 cm (5' 9) ??? Wt 100.2 kg (221 lb) No flowsheet data found. Appearance/ Behavior Well groomed, good eye contact, relaxed, cooperative, normal speech, no acute distress. Seen alone. HEENT Sclera non-icteric, conjunctiva clear. Hearing grossly intact. Lungs Clear to ausculation bilaterally Cardiovascular Regular rate and rhythm without murmur Musculoskeletal Gait antalgic, favoring right side with left leg straightened. No ambulatory aides Skin Left knee with healing, well-approximated scabbed surgical scar. No drainage, no erythema. ASSESSMENT Mr. Ramos has acute post-operative pain s/p left TKA on 12/13/15. He has a long history of opioid dependence and alcoholism, for which he was maintained on methadone for thirteen years in the past, as well [facility]. He currently denies using [...] post-operative opioids, as they are not a project systems engineer option for him. He expresses concern about [...] Decreased Oxycodone 20mg tablets, not to exceed 3 tabs/day for the next 14 days- I gave him a prescription for #33 tablets (He is three days early for his 14 day followup and therefore should have three days worth (#12) tablets leftover. He states he knows he has some leftover but does not know howmany- he was told at the last visit not to exceed 4 tabs/day so he should have about 12 tablets left. We have discussed that the goals of his pain medication at this time are to allow him to continue participating in physical therapy and regaining his strength and function. I have advised him that we will not continue opioid therapy long-term because he is too high of a risk. He understands the risks a ssociated with high-dose opioid therapy. 2. Continue to have PCP prescribe Tramadol as she was previous to surgery. 3. Follow up in 14 days. Mahin Ramos had the opportunity to ask questions and indicated that all questions were answered to his satisfaction. Renata Lehman, MSN, [employer] OPERATOR-BC, OPTICAL LABORATORY MANAGER Nurse Practitioner [facility] documented in this encounter Plan of Treatment Upcoming Encounters Date Type Specialty Care Team Description 12/11/2021 Appointment Radiology 12/11/2021 Office Visit Orthopaedics Marion Tavera APRN [facility] ORTHOPAEDIC SURG [place], [place] [address] (Wo rk) 01/15/2022 Appointment Radiology Stiven Cervantes MD [facility] er Pulmonary Medici [place], [place] [address] (Wo rk) Scheduled Procedures Name Priority Associated Diagnoses Date/Time DEBRIDEMENT SKIN, SUBCU, MUSCLE, R great toe amp utation, wound LOWER EXTREMITY (WRVU 2.7) closure MODIFIER WOUND VAC R great toe amputation, wound closure documented as of this encounter Visit Diagnoses Diagnosis Acute post-operative pain documented in this encounter Care Teams Shredding Machine Tender Relationship Specialty Start Date End Date Ion Peña APRN PCP - General 11/19/13 03/19/17 documented as of this encounter
--- OUTSIDE RECORDS SUMMARY | 2021-11-30 08:23 | XMS_ITS | Encounter Summary ---
:1955 Author Organization [facility] Address [facility] [place] [address] Care Team Providers Name Role Phone Azalia Peña APRN Primary Care Provider Reason for Visit Reason Onset Date Comments Post Hospital Discharge 12/19/2015 Encounter Details Date Type Department Care Team Description 12/19/2015 Telephone Orthopaedics at [facility] Gordon Mallory, Post Hospital [facility] [place] [address] [facility] [phone] ORTHOPAEDICS [place] [id number] Social History Tobacco Use Types Packs/Day Years [...] this encounter Miscellaneous Notes Telephone Encounter - Rick Avila RN - 12/19/2015 11:01 AM EDT Date of surgery 12/13/15 Type of surgery left total knee replacement Surgeon: Barrington Mallory Call made within 2 weeks of discharge? Yes Is pain under control?yes - he has an appointment with the pain clinic tomorrow. Having bowel movements?yes Concerns with incision?no Has the [facility] been in contact?yes Anticoagulation plan? Aspirin 81 mg BID for 30 days Concerns? None He is staying at his mother's house while repairs are being done at his home. [phone] Patient encouraged to call the clinic with any concerns moving forward. documented in this encounter Plan of Treatment Upcoming Encounters Date Type Specialty Care Team Description 12/11/2021 Appointment Radiology 12/11/2021 Office Visit Orthopaedics Marion Tavera APRN [facility] DR ORTHOPAEDIC SURG [place], [place] [address] (Wo rk) 01/15/2022 Appointment Radiology Stiven Cervantes MD [facility] Dr Pulmonary Medici [place], [place] [address] (Wo rk) Scheduled Procedures Name Priority Associated Diagnoses Date/Time DEBRIDEMENT SKIN, SUBCU, MUSCLE, R great toe amp utation, wound LOWER EXTREMITY (WRVU 2.7) closure MODIFIER WOUND VAC R great toe amputation, wound closure documented as of this encounter Visit Diagnoses Not on filedocumented in this encounter Care Teams Jar Capper Relationship Specialty Start Date End Date Azalia Peña APRN PCP - General 11/19/13 03/19/17 documented as of this encounter
--- OUTSIDE RECORDS SUMMARY | 2021-11-30 08:23 | XMS_ITS | Encounter Summary ---
:1955 Author Organization [place] [address] Care Team Providers Name Role Phone Laura Cherry APRN Primary Care Provider Encounter Details Date Type Department Care Team Description 05/29/2017 Telephone Pulmonology at [facility] Agatha Campos, [place] [address] Social History Tobacco Use Types Packs/Day Years [...] Telephone Encounter - Agatha Campos, RT - 05/29/2017 12:02 PM EST Called Mahin Ramos at home, He noted: He is utilizing his Duoneb 2 times per day, is concerned about getting dependent on it. Reviewed duration of action of nebulizer, he verbalized understanding. He is also taking: Morning: Proair HFA 2 puffs Dulera HFA 2 puffs Spiriva Respimat 2 puffs ?? Evening- 12 hours later Proair HFA 2 puffs Dulera HFA 2 puffs He completed one course of antibiotics and Prednisone. He has the scripts for another course if needed. He noted he had been sick with nausea/vomiting the previous 6 days with weight loss of 10 lbs. He was able to resume eating/ fluid intake yesterday and noted weight has increased 3 lbs- ? Rehydration. He is currently sleeping in his recliner and utilizing O2 before he goes to sleep and when he wakes up during the night. Discussed having him utilize the oxygen when sleeping, he will think about this. He noted sputum samples brought to local hospital on 05/23/2017. He is not smoking. He is asking about potentially having the Tussionex with codeine. Will review with Dr. Cervantes. He is also asking about the alpha 1 anti-trypsin test, will follow up with results once received. documented in this encounter Plan of Treatment Upcoming Encounters Date Type Specialty Care Team Description 12/11/2021 Appointment Radiology 12/11/2021 Office Visit Orthopaedics Marion Tavera APRN [facility] ORTHOPAEDIC SURG [place], [place] [address] (Wo rk) 01/15/2022 Appointment Radiology Stiven Cervantes MD [facility] Pulmonary Medici [place], [place] [address] (Wo rk) Scheduled Procedures Name [...] on filedocumented in this encounter Care Teams Toy Electric Train Repairer Relationship Specialty Start Date End Date Laura Cherry APRN PCP - General Family Medicine 03/20/17 04/06/19 [address] [place] [address] documented as of this encounter
--- OUTSIDE RECORDS SUMMARY | 2021-11-30 08:23 | XMS_ITS | Encounter Summary ---
:1955 Author Organization [facility] Address [facility] [place] [address] Care Team Providers Name Role Phone Azalia Peña APRN Primary Care Provider Encounter Details Date Type Department Care Team Description 12/15/2015 Telephone Orthopaedics at [facility] Gordon Mallory MD [facility] [place] [address] ORTHOPAEDICS [phone] [place], [place] [address] (Wo rk) Social History Tobacco [...] Telephone Encounter - Rick Avila RN - 12/15/2015 3:33 PM EDT Son returned our call and stated that patient was unable to return to his home due to repairs so went to a relatives house down the road. Contact number [phone]. [employer] contacted and given this information. They will try to get out to see him tomorrow. Telephone Encounter - Rick Avila RN - 12/15/2015 2:10 PM EDT Call received from Donal Flores with [employer]. He states he has been calling the patient and has gone by his home and knocked on the door. They have not been able to find him. The nurse salesperson flying squad over the weekend will try again tomorrow to reach out to him. Call placed to his home and the phone rings, no machine picks up. Tried the emergency contact number for his son and had to leave a message for Ross Ramos to call back. documented in this encounter Plan of Treatment Upcoming Encounters Date Type Specialty Care Team Description 12/11/2021 Appointment Radiology 12/11/2021 Office Visit Orthopaedics Marion Tavera APRN [facility] ORTHOPAEDIC [place] [address] (Wo rk) 01/15/2022 Appointment Radiology Stiven Cervantes MD [facility] Pulmonary Medici [place], [place] [address] (Wo rk) Scheduled Procedures Name Priority Associated Diagnoses Date/Time DEBRIDEMENT SKIN, SUBCU, MUSCLE, R great toe amp utation, wound LOWER EXTREMITY (WRVU 2.7) closure MODIFIER WOUND VAC R great toe amputation, wound closure documented as of this encounter Visit Diagnoses Not on filedocumented in this encounter Care Teams Collections Assistant Relationship Specialty Start Date End Date Azalia Peña APRN PCP - General 11/19/13 03/19/17 documented as of this encounter
--- OUTSIDE RECORDS SUMMARY | 2021-11-30 08:23 | XMS_ITS | Encounter Summary ---
:1955 [place] [address] Care Team Providers Name Role Phone Azalia Peña APRN Primary Care Provider Reason for Visit Reason Onset Date Comments Hepatitis C 10/01/2016 Encounter Details Date Type Department Care Team Description 10/01/2016 Telephone Gastroenterology at [facility] Kim [place] [address] Social History Tobacco Use Types Packs/Day [...] this encounter Miscellaneous Notes Telephone Encounter - Kim Coy RN - 10/01/2016 10:17 AM EDT Has x 5 days remaining Epclusa. Requesting lab order. Uses [facility]. Orders faxed. December visit, , labs scheduled for 12/11. Reviewed post-treatment lab schedule. Reviewed that he will continue to need Q 6 months hcc surveillance due to cirrhosis. documented in this encounter Plan of Treatment Upcoming Encounters Date Type Specialty Care Team Description 12/11/2021 Appointment Radiology 12/11/2021 Office Visit Orthopaedics Marion Tavera APRN [facility] ORTHOPAEDIC SURG [place], [place] [address] (Wo rk) 01/15/2022 Appointment Radiology Stiven Cervantes MD [facility] Pulmonary Medici [place], [place] [address] (Wo rk) Scheduled Procedures Name [...] on filedocumented in this encounter Care Teams Dish Washer Relationship Specialty Start Date End Date Azalia Peña APRN PCP - General 11/19/13 03/19/17 documented as of this encounter
--- OUTSIDE RECORDS SUMMARY | 2021-11-30 08:23 | XMS_ITS | Encounter Summary ---
:1955 Author Organization [facility] [place] [address] Care Team Providers Name Role Phone Laura Cherry APRN Primary Care Provider Reason for Visit Consultation (Routine) - Closed Specialty Diagnoses / Procedures Referred By Contact Refer red To Contact Pulmonology Diagnoses Chronic obstructive pulmonary disease, unspecified CHRONIC OBSTRUCTIVE LUNG DISEASE Laura Cherry APRN [facility] Pulmonology [address] [place] [address] [place] [address] Fax: Referral ID Status Reason Start Date Expiration Date Visits V isits Requested Authorized [id number] Closed Consult, 03/20/2017 03/20/2018 1 1 [facility] Encounter Details Date Type Department Care Team Description 05/15/2017 [place] Visit [place] [facility] Stiven Cervantes, Stage 2 moderate COPD by GOL D classification; [facility] Ex-smoker; [facility] Elevated hemidiaphragm; [place] [address] Chronic cough [phone] Pulmonary Medici ne [place], [place] [address] Social History Tobacco Use Types [...] Taken Comments Blood Pressure - - Pulse - - Temperature - - Respiratory Rate - - Oxygen Saturation - - Inhaled Oxygen Concentration - - Weight 104.3 kg (230 lb) 05/15/2017 2:17 PM EST Height 170.9 cm (5' 7.3) 05/15/2017 2:17 PM EST Body Mass Index 35.7 05/15/2017 2:17 PM EST documented in this encounter Progress Notes Geneva Castellano RN - 05/15/2017 2:00 PM EST ...CT Lung Screen shared decision making I have reviewed with the patient the following decision issues: Check as reviewed: ?Annual screening recommended: Lung cancer screening is most effective if it is done every year up to age 77 or until you are 15 years from quitting smoking (whichever is first) ?Benefits of Screening: Finding cancer early when it is small may make treatment more effective and less difficult for you. It is only useful to find cancers if you are willing and able to undergo the treatments we would recommend: surgery, radiation, medication or a combination. ?Risk of False Alarms: About 1 in 10 people will have a false alarm???- they will be told there is aworrisome finding (on lungs or outside of lungs) but after we study it, we will find it is not cancer. This can be stressful and result in tests that don't improve your health. ?Radiation risks: For people at high risk for lung cancer, the risk is of radiation is considered far smaller than the risk of cancer. A lung cancer screening CT delivers about 1/5th the radiation doseof a standard chest CT. ?What we do with results: Most common lung finding for which more care is suggested is a lung nodule(6 mm or more the size of small pea). We may suggest: Repeat scans (one repeat CT scan in 3-6 months) or more testing right away to determine the best next steps, this could be more scans or rarely a biopsy. ?Importance of not smoking. ..I called and discussed the following aspects of COPD care with patient prior to their upcoming 1. Current medications: Dulera, spiriva, Rescue inhaler, a Neb 2. Exacerbation frequency: pneumonia 2x/4 yrs, Chronic Bronchitis 3. Sick plan: Goes to PCP 4. Sleep evaluation: no 5. Advanced directives: no 6. Smoking cessation: Quit cigarettes , 1 month ago, occ cigars, [id number] 7. Pulmonary rehabilitation: No 8. Oxygen No 9. Immunizations refused 10. Lung cancer screening yes 11. A1AT testing in clinic Geneva Castellano RN 2:31 PM 05/15/2017 Stiven Cervantes MD - 05/15/2017 2:00 PM EST [facility] Section of Pulmonary Medicine COPD Clinic Consultation Date of Encounter: 05/15/2017 Referring Provider: Laura Cherry Aprn [address] [id number] PCP: Laura Cherry APRN [address] [id number] Reason for Consult: I was asked to evaluate this patient for COPD management. I have personally interviewed and examined the patient. I have independently viewed his radiographic studies, pulmonary function testing and laboratory data. HPI: I saw Mahin Ramos in the COPD clinic today. Mr. Ramos presents today with his . He describes a long history of exertional dyspnea that is slowly been getting worse. In addition he has a cough and sputum production daily. Often this is white to yellow but occasionally can be more green. He has exacerbations of his COPD around 4 times a year that require prednisone and antibiotics. Prednisone has been particularly effective during exacerbations. He experiences chest tightness along with dyspnea when he is walking. Distances of a couple 100 feetor climbing a flight of stairs make him short of breath. Use of an albuterol inhaler or nebulizer provide relief. He uses Dulera and Spiriva on a daily basis with some benefit. He feels more short of breath lying down and often has to sleep in a recliner. He has no oxygen at home. He stopped smoking last year. Review of Systems: No fevers or chills. No exertional chest pain and cardiac testing within the last year or so was unremarkable. No ankle swelling but he does have peripheral neuropathy. Minimal sinus and nasal discharge or postnasal drip. Mild intermittent dyspepsia. Weight up a few pounds lately. Past Medical History: Past Medical History: Diagnosis Date ??? Depression ??? GERD (gastroesophageal reflux disease) ??? Hepatitis C ??? HTN (hypertension) Past Surgical History: Past Surgical History: Procedure Laterality Date ??? PRO TOTAL KNEE ARTHROPLASTY Left 12/13/2015 @TOTAL KNEE ARTHROPLASTY performed by Gordon Mallory MD at [facility] MAIN OR ??? PRO UPPER GI ENDOSCOPY, DIAGNOSTIC Bilateral 08/17/2015 EGD, UPPER GI ENDOSCOPY performed by Trev Hong MD at [facility] ENDOSCOPY ??? REVISION TOTAL HIP ARTHROPLASTY bilateral for hip AVN ??? SPINE SURGERY Medications: Current Outpatient Prescriptions Medication Sig Dispense Refill ??? buPROPion (WELLBUTRIN SR) 100 mg Tablet [...] mouth every 8 hours as needed.) ??? traMADol (ULTRAM) 50 mg Tablet Take 2 tablets by mouth every 6 hours. #56 for a 7 day supply. 56tablet 0 ??? DULERA 100-5 mcg/actuation HFA Aerosol Inhaler inhale 2 puffs by mouth prn 0 ??? furosemide (LASIX) 40 mg Tablet Take 1 tablet by mouth 2 times daily. Reported on 07/08/2016 ??? gabapentin (NEURONTIN) 600 mg Tablet Take 2 tablets by mouth 3 times daily. ??? multivitamin (THERAGRAN) tablet Take 1 tablet by mouth daily. No current facility-administered medications for this visit. [...] Social History [place] 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 Pt has been exposed to [...] 23 02/11/2012 ??? Tdap Vaccine 02/11/2012 Examination: Ht 170.9 cm (5' 7.3) Wt 104.3 kg (230 lb) BMI 35.7 kg/m2 General: Comfortable at rest HEENT: No cervical lymphadenopathy, no oral thrush Mallampati 3 Resp: Hyperinflated, chest expansion equal Resonant to percussion with vesicular breath sounds throughout No crackles or wheeze CV: S1 + S2 + O GI: Abdomen soft and non-tender, no organomegaly Skin: No rash Extremities: No clubbing, no cyanosis, no edema, calves soft and non tender Neurologic: No obvious cranial nerve palsy or limb weakness, normal gait Psych: Normal mood and affect Labs: Lab Results Component Value Date WBC 12.1 10/10/2016 HGB 13.8 10/10/2016 HCT 41.9 10/10/2016 PLATELET 299 10/10/2016 A1AT gentoype: A1AT level: Imaging: Available CXR and CT Chest images were viewed personally and reports were reviewed. I agree with theradiology reads. CT Chest [facility] 02/2017 No filling defects within the pulmonary [...] Office Visit from 05/15/2017 in Pulmonology at [place] PFT Results FEV1 (L) 2.4 liters FEV1 [...] category D. This is moderate disease. 2. Former smoker, quit 1 years ago 3. Paraseptal emphysema and a large intraparenchymal 5cm LLL cyst 4. Chronic elevation of right hemidiaphragm Mahin Ramos has moderate COPD by Gold criteria but is a frequent exacerbations. His exertional dyspnea and symptoms of orthopnea a partly explained by his elevated right hemidiaphragm which may wellbe paralyzed. 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 The chronicity of this elevated hemidiaphragm and the lack of mediastinal pathology means I do not think this is due to malignancy. I think the use of oxygen on the correct use of his inhaled therapies will help him. Our respiratorytherapist Agatha Campos spent almost half an hour with him today going over correct inhaler technique for each of his devices. I think culturing his sputum for bacteria and AFB will be helpful and ultimately participation the pulmonary rehab program could really benefit him. In the short-term I did give him prednisone antibiotics to use during an exacerbation. GOLD Staging - Airflow FEV1 >80% 1 FEV1 <80% 2 FEV1 <50% 3 FEV1 <30% 4 GOLD Staging - Symptoms Annual Exacerbations CAT <10 CAT >10 0 or 1 A B 2 or more C D Today we addressed the following points of the plan below and the patient was provided with a written copy at checkout. Over time we aim to address all items on the checklist that are relevant to the patient Plan: 1. Medications Daily: 1. Spiriva respimat 2 puffs once daily 2. Dulera twice daily via spacer As needed 1. Albuterol 2 puffs 2. Nebulized DuoNeb Remember the techniques Agatha showed you Blood work next week will help us work out if your leg cramps are linked to the inhalers 2. Exacerbation prevention Avoid sick contacts, wash hands, wear mask as needed 3. Sick plan Prednisone 40mg for 5 days Azithromycin for 5 days Call our office for medications as needed 4. Sleep evaluation Deferred 5. Advanced directives 6. Smoking cessation Done - congratulations 7. Pulmonary rehabilitation Will discuss more next visit Practice pursed lip breathing and do home exercises as Agatha instructed 8. Oxygen Prescribed today - 2L/min with exertion 9. Immunizations Declined today - discuss again next visit 10. Lung cancer screening Due next CT February 2018 11. LVRS / Transplant 12. Palliative care 13. A1AT Testing Checked today - I will contact you with results 14. Other Sputum culture for AFB and bacteria ([facility]) Follow up: 2 months Thank you for referring this patient to the COPD clinic. Stiven Cervantes MD documented in this encounter Plan of Treatment Upcoming Encounters Date Type Specialty Care Team Description 12/11/2021 Appointment Radiology 12/11/2021 Office Visit Orthopaedics Marion Tavera APRN [facility] ORTHOPAEDIC SURG [place], [place] [address] (Wo rk) 01/15/2022 Appointment Radiology Stiven Cervantes MD [facility] Pulmonary Medici [place], [place] [address] (Wo rk) Scheduled Procedures Name [...] 2 moderate COPD by GOLD classifica tion Ex-smoker Personal history of tobacco use, present ing hazards to health Elevated hemidiaphragm Disorders of diaphragm Chronic cough Cough documented in this encounter Care Teams Outboard Motors Experimental Mechanic Relationship Specialty Start Date End Date Laura Cherry APRN PCP - General Family Medicine 03/20/17 04/06/[address] [place] [address] documented as of this encounter
--- OUTSIDE RECORDS SUMMARY | 2021-11-30 08:23 | XMS_ITS | Encounter Summary ---
:1955 Author Organization [facility] [place] [address] Care Team Providers Name Role Phone Azalia Peña APRN Primary Care Provider Encounter Details Date Type Department Care Team Description 08/06/2016 Notes Only Gastroenterology at [facility] Julia Lomeli [facility] [place] [address] Social History Tobacco Use Types Packs/Day [...] documented as of this encounter Progress Notes Julia Lomeli RN - 08/06/2016 1:10 PM EDT Epclusa x 12 weeks. Start date July 13, 2016. Initial PA was for 4 weeks only. Resubmitted for PA extension. Your request has been approved - for remaining 8 weeks of Epclusa. CaseId:[id number] Product Name:Epclusa - *[employer] [place]* Status:Approved;Coverage Start Date:08/06/2016 - Coverage End Date:10/01/2016 pharmacy updated documented in this encounter Plan of Treatment Upcoming Encounters Date Type Specialty Care Team Description 12/11/2021 Appointment Radiology 12/11/2021 Office Visit Orthopaedics Marion Tavera APRN [facility] ORTHOPAEDIC SURG [place], [place] [address] (Wo rk) 01/15/2022 Appointment Radiology Stiven Cervantes MD [facility] Pulmonary Medici [place], [place] [address] (Wo rk) Scheduled Procedures Name Priority Associated Diagnoses Date/Time DEBRIDEMENT SKIN, SUBCU, MUSCLE, R great toe amp utation, wound LOWER EXTREMITY (WRVU 2.7) closure MODIFIER WOUND VAC R great toe amputation, wound closure documented as of this encounter Goals Goal Patient Goal Associated Recent Patient-Stated? Author Type Problems Progress Home Medication Patient On track No Ryan, Compliance and Facing (07/31/2016 Jluia Esquivel, Understanding Action Plan 9:07 AM EDT) [facility] Note: Formatting of this note might be d ifferent from the original. Patient Goal: To experience less side ef fects than his past regimen of Peg and Ribavirin Timeframe to meet goal: 3 months of ther apy documented as of this encounter Visit Diagnoses Not on filedocumented in this encounter Care Teams Gun Synchronizer Relationship Specialty Start Date End Date Azalia Peña APRN PCP - General 11/19/13 03/19/17 documented as of this encounter
--- OUTSIDE RECORDS SUMMARY | 2021-11-30 08:23 | XMS_ITS | Encounter Summary ---
:1955 Author Organization [facility] [place] [address] Care Team Providers Name Role Phone Azalia Peña APRN Primary Care Provider Encounter Details Date Type Department Care Team Description 10/10/2016 External Results [place] [facility] [place] Tilley, [facility] [place] [address] [facility] [phone] GASTROENTEROLOGY [place], [place] [address] Social History Tobacco Use Types [...] Marion Tavera APRN [facility] ORTHOPAEDIC SURG [place], [place] [address] (Wo rk) 01/15/2022 Appointment Radiology Stiven Cervantes MD [facility] Pulmonary Medici [place], [place] [address] (Wo rk) Scheduled Procedures Name [...] Name Priority Date/Time Associated Diagnosis Comme nts EXTERNAL LAB CBC CMP Routine 10/10/2016 Results for this THYROID RESULTS PANEL proced ure are in the results section . documented in this encounter Results CBC / CMP / Thyroid External Results (10/10/2016) P athologist Signature WBC 12.1 RBC 4.18 Hemoglobin 13.8 Hematocrit 41.9 MCV 100.2 Platelets 299 Sodium 140 Potassium 4.0 Chloride 100 CO2 32 BUN 15 Creatinine 1.1 Estimated GFR >60 Glucose Lvl 114 Calcium 9.2 Total Protein 7.3 Albumin 3.79 Total Bilirubin 0.4 Alk Phos 109 AST 18 ALT 29 Historical Provider POINT OF CARE TEST ORDERABLE S documented in this encounter Visit Diagnoses Not on filedocumented in this encounter Care Teams Logistics Associate Relationship Specialty Start Date End Date Azalia Peña APRN PCP - General 11/19/13 03/19/17 documented as of this encounter
--- OUTSIDE RECORDS SUMMARY | 2021-11-30 08:23 | XMS_ITS | Encounter Summary ---
:1955 Author Organization [facility] [place] [address] Care Team Providers Name Role Phone Azalia Peña APRN Primary Care Provider Encounter Details Date Type Department Care Team Description 08/12/2016 Telephone Orthopaedics at [facility] Norma Sharma, [place] [address] Social History Tobacco Use Types Packs/Day [...] this encounter Miscellaneous Notes Telephone Encounter - Norma Sharma RN - 08/13/2016 4:33 PM EDT OPENED IN ERROR documented in this encounter Plan of Treatment Upcoming Encounters Date Type Specialty Care Team Description 12/11/2021 Appointment Radiology 12/11/2021 Office Visit Orthopaedics Marion Tavera APRN [facility] ORTHOPAEDIC SURG [place], [place] [address] (Wo rk) 01/15/2022 Appointment Radiology Stiven Cervantes MD [facility] Pulmonary Medici [place], [place] [address] (Wo rk) Scheduled Procedures Name [...] Action Plan 9:07 AM EDT) [facility] Note: Formatting of this note might be d ifferent from the original. Patient Goal: To experience less side ef fects than his past regimen of Peg and Ribavirin Timeframe to meet goal: 3 months of ther apy documented as of this encounter Visit Diagnoses Not on filedocumented in this encounter Care Teams Hatchery Worker Relationship Specialty Start Date End Date Azalia Peña APRN PCP - General 11/19/13 03/19/17 documented as of this encounter
--- OUTSIDE RECORDS SUMMARY | 2021-11-30 08:23 | XMS_ITS | Encounter Summary ---
:1955 [place] [address] Care Team Providers Name Role Phone Laura Cherry APRN Primary Care Provider Encounter Details Date Type Department Care Team Description 04/02/2017 Orders Only Pulmonology at [facility] Stiven Cervantes, [facility] MD pulmonary disease, [facility] unspecified [place] [address] Pulmonary Medici [place], [place] [address] Social History Tobacco Use Types [...] APRN [facility] ORTHOPAEDIC SURG [place], [place] [address] (Wo rk) 01/15/2022 Appointment Radiology Stiven Cervantes MD [facility] Pulmonary Medici [place] [id number] (Wo rk) Scheduled Procedures Name Priority Associated [...] apy documented as of this encounter Results Pulmonary Function Testing (08/21/2017 [...] obstructive pulmonary disease, u nspecified COPD type Chronic obstructive pulmonary disease, u nspecified COPD type documented in this encounter Care Teams Steam Crane Operator Relationship Specialty Start Date End Date Laura Cherry APRN PCP - General Family Medicine 03/20/17 04/06/[address] [place] [address] documented as of this encounter
--- OUTSIDE RECORDS SUMMARY | 2021-11-30 08:23 | XMS_ITS | Encounter Summary ---
:1955 Author Organization [facility] [place] [address] Care Team Providers Name Role Phone Ion Peña APRN Primary Care Provider Reason for Visit Consultation (Routine) - Closed Specialty Diagnoses / Procedures Referred By Contact Refer red To Contact Pain Management Diagnoses Status post total left knee replacement Chronic back pain, unspecified back pain laterality, unspecified location Polysubstance abuse Ced Medina APRN Fanciullo, Gilbert J, [facility] [place] [address] [facility] [place], [place] [address] Phone: Fax: Referral ID Status Reason Start Date Expiration Date Visits V isits Requested Authorized [id number] Closed Consult, 12/14/2015 12/13/2016 1 1 Test & Treat Encounter Details Date Type Department Care Team Description 12/20/2015 Office Visit Pain Management at [facility] Acute postoperative Mike Jara APRN pain of knee, left [facility] [address] [place], [place] [id number] [phone] Social History Tobacco Use Types Packs/Day Years [...] Sign Reading Time Taken Comments Blood Pressure 175/86 12/20/2015 1:36 PM EDT Pulse 76 12/20/2015 1:36 PM EDT Temperature - - Respiratory Rate - - Oxygen Saturation 98% 12/20/2015 1:36 PM EDT Inhaled Oxygen Concentration - - Weight 98.1 kg (216 lb 3.2 oz) 12/20/2015 1:36 PM EDT Height 174 cm (5' 8.5) 12/20/2015 1:36 PM EDT Body Mass Index 32.39 12/20/2015 1:36 PM EDT documented in this encounter Progress Notes Renata Lehman APRN - 12/20/2015 1:45 PM EDT PAIN CLINIC FOLLOW-UP DATE OF VISIT 12/20/2015 Patient Mahin Ramos 1955 REFERRING PROVIDER Ion Peña APRN [address] [address] PRIMARY CARE PROVIDER ION PEÑA APRN [place] and [place] Prescription Monitoring Program were checked and no concerns were identified. Naloxone discussed? Prescription and education given 12/20/15 Home storage of opioids: put up away in a cupboard-- encouraged to keep in locked box CHIEF COMPLAINT: Acute post-operative pain management s/p left knee TKA HPI: Mahin Ramos presents for acute post-operative pain management following left TKA on 12/13/15 (had avascular necrosis of the left knee). He saw Dr. Lopez in the [facility] on 05/26/15 forevaluation and plan [...] He has been through treatment at the [facility] multiple times in the past and had [...] #56 Gabapentin 1200mg three times per day INTERVAL HISTORY: ED visits, hospitalizations, new medical problems or surgeries since previous visit? Left TKA Changes in family, social, or functional history since previous visit? No PAIN ASSESSMENT: - Constant burning and deep bone pain in left knee - + chronic neuropathy with numbness in bilateral feet, no weakness in lower extremities - Average pain in past week: I don't know- pretty painful MEDICATIONS Medications 12/20/15 1347 Medication Sig Taking? aspirin 81 mg Tablet, Delayed Release (E.C.) Take 1 tablet by mouth 2 times daily for 29 days. Yes traMADol (ULTRAM) 50 mg Tablet Take 2 tablets by mouth every 6 hours. #56 for a 7 day supply. Yes mirtazapine (REMERON) 15 mg Tablet take 1 tablet by mouth at bedtime Yes tamsulosin (FLOMAX) 0.4 mg Capsule, Sust. Release 24 hr Yes furosemide (LASIX) 40 mg Tablet Take [...] 1 tablet by mouth every 8 hours. diaZEPam (VALIUM) 5 mg Tablet Take 1 tablet by mouth every 12 hours as needed (muscle spasm) for up to 7 days. #14 for a 7 day supply. oxyCODONE (ROXICODONE) 20 mg Tablet Take 0.5-1 tablets by mouth every 4 hours as needed for Pain. #42 for a 7 day supply. senna-docusate (PERICOLACE) 8.6-50 mg Tablet Take 2 tablets by mouth 2 times daily. Take to maintainnormal bowel pattern while taking narcotic pain medication. Patient not taking: Reported on 12/20/2015 polyethylene glycol (MIRALAX) 17 gram Powder in Packet Take 17 g by mouth 2 times daily. Take to maintain normal bowel pattern while taking narcotic pain medication. Patient not taking: Reported on 12/20/2015 DULERA 100-5 mcg/actuation HFA Aerosol Inhaler inhale 2 puffs by mouth twice a day hydrOXYzine (ATARAX) 50 mg Tablet take 1 tablet by mouth three times a day if needed ADVERSE DRUG REACTIONS Allergies as of 12/20/2015 - Review Complete 12/20/2015 Allergen Reaction Noted ??? Morphine Other (See Comments) 06/13/2015 CURRENT THERAPIES: - Valium 5mg every twelve hours for seven days, #14 -- when I need it, not more than twice per day - Oxycodone 20mg tablets, 0.5-1 tablet every 4 hours as needed for pain, #42 -- taking one tablet every four hours - Acetaminophen 500mg every eight hours - [...] shortness of breath, wheezing, cough GI: denies constipation, + diarrhea, denies nausea or vomiting, black or bloody stool, loss of control of bowel : denies urinary changes or incontinence, + frequency due to Lasix Neuro: denies changes in attention or orientation; denies dizziness, seizures, tremors Muscloskeletal: denies joint swelling, use of ambulatory aide, falls Skin: + healing surgical incision on [...] otherwise) PHYSICAL EXAMINATION Body mass index is 32.39 kg/(m^2). Visit Vitals ??? BP 175/86 ??? Pulse 76 ??? Ht 174 cm (5' 8.5) ??? Wt 98.1 kg (216 lb 3.2 oz) No flowsheet data found. Appearance/ Behavior Well groomed, good eye contact, relaxed, cooperative, normal speech, no acute distress. Seen alone. HEENT Sclera non-icteric, conjunctiva clear. Hearing grossly intact. Lungs Clear to ausculation bilaterally Cardiovascular Regular rate and rhythm without murmur Musculoskeletal Gait antalgic, favoring right side with left leg straightened. No ambulatory aides Skin Left knee with healing, well-approximated scabbed surgical incision. No drainage, mild erythema. ASSESSMENT Mr. Ramos has acute post-operative pain s/p left TKA on 12/13/15. He has a long history of opioid dependence and alcoholism, for which he was maintained on methadone for thirteen years in the past, as [facility]. He currently [...] post-operative opioids, as they are not a snf option for him. He expresses concern about [...] lays in bed most days. PLAN/RECOMMENDATIONS 1. Prescribed Oxycodone 20mg tablets, not to exceed 5 tabs/day for the next 14 days. This is a drop of 1 tablet (20mg) from what he is currently taking. I advised him that because he is only one week post-op I will maintain him on 5tabs/day for two week but when he returns for his next visit I will wean him down more aggressively (thinking one tab/week). We have discussed that the goals of his pain medication at this time are to allow him to continue participating in physical therapy and regaining his strength and function. I have advised him that we will not continue opioid therapy long-term because he is too high of a risk. He understands the risks associated with high-dose opioid therapy. 2. Narcan prescribed and education given. 3. Discontinue Valium. Continue to have PCP prescribe Tramadol as she was previous to surgery. 4. Follow up in 14 days. Mahin Ramos had the opportunity to ask questions and indicated that all questions were answered to his satisfaction. Renata Lehman, MSN, PART TIME FLEXIBLE CLERK-BC, RESET MERCHANDISER Nurse Practitioner [facility] documented in this encounter Plan of Treatment Upcoming Encounters Date Type Specialty Care Team Description 12/11/2021 Appointment Radiology 12/11/2021 Office Visit Orthopaedics Marion Tavera APRN [facility] ORTHOPAEDIC SURG [place], [place] [address] (Wo rk) 01/15/2022 Appointment Radiology Stiven Cervantes MD [facility] Pulmonary Mediccharlie villegas [place], [place] [address] (Wo rk) Scheduled Procedures Name Priority Associated Diagnoses Date/Time DEBRIDEMENT SKIN, SUBCU, MUSCLE, R great toe amp utation, wound LOWER EXTREMITY (WRVU 2.7) closure MODIFIER WOUND VAC R great toe amputation, wound closure documented as of this encounter Visit Diagnoses Diagnosis Acute postoperative pain of knee, left documented in this encounter Care Teams Cancer Registrar Relationship Specialty Start Date End Date Ion Peña APRN PCP - General 11/19/13 03/19/17 documented as of this encounter
--- OUTSIDE RECORDS SUMMARY | 2021-11-30 08:23 | XMS_ITS | Encounter Summary ---
:1955 Author Organization [facility] Address [facility] [place] [address] Care Team Providers Name Role Phone Azalia Peña APRN Primary Care Provider Reason for Visit Reason Onset Date Comments Medication Refill 06/25/2016 Encounter Details Date Type Department Care Team Description 06/25/2016 Refill Gastroenterology at [facility] Kate Tilley, Chronic hepatitis C [facility] Jenni hammer [place] [address] [facility] [phone] DR GASTROENTEROLOGY [place] [id number] Social History Tobacco Use Types Packs/Day Years [...] Telephone Encounter - Kim Coy RN - 06/25/2016 5:36 PM EST I would like to treat this man with 12 weeks of Epclusa. ? He has GT 2, Cirrhosis, and history of prior treatment failure. PA & pertinent clinicals submitted to [facility]. Await response. documented in this encounter Plan of Treatment Upcoming Encounters Date Type Specialty Care Team Description 12/11/2021 Appointment Radiology 12/11/2021 Office Visit Orthopaedics Marion Tavera APRN [facility] DR ORTHOPAEDIC SURG [place], [place] [address] (Wo rk) 01/15/2022 Appointment Radiology Stiven Cervantes MD [facility] Pulmonary Medici [place], [place] [address] (Wo rk) Scheduled Procedures Name Priority Associated Diagnoses Date/Time DEBRIDEMENT SKIN, SUBCU, MUSCLE, R great toe amp utation, wound LOWER EXTREMITY (WRVU 2.7) closure MODIFIER WOUND VAC R great toe amputation, wound closure documented as of this encounter Visit Diagnoses Diagnosis Chronic hepatitis C without hepatic coma documented in this encounter Care Teams Corporate Securities Research Analyst Relationship Specialty Start Date End Date Azalia Peña APRN PCP - General 11/19/13 03/19/17 documented as of this encounter
--- OUTSIDE RECORDS SUMMARY | 2021-11-30 08:23 | XMS_ITS | Encounter Summary ---
:1955 Author Organization [facility] [place] [address] Care Team Providers Name Role Phone Laura Cherry APRN Primary Care Provider Encounter Details Date Type Department Care Team Description 05/29/2017 Telephone Pulmonology at [facility] [place] [address] Social History Tobacco Use Types Packs/Day [...] Telephone Encounter - Agatha Campos RT - 05/29/2017 12:12 PM EST Called Mahin Ramos back and reviewed no order for Tussionex with kevinine at this time per Dr. Cervantes. documented in this encounter Plan of Treatment Upcoming Encounters Date Type Specialty Care Team Description 12/11/2021 Appointment Radiology 12/11/2021 Office Visit Orthopaedics Marion Tavera APRN [facility] ER DR ORTHOPAEDIC SURG [place] [employer], [place] [address] (Wo rk) 01/15/2022 Appointment Radiology Stiven Cervantes MD [facility] Pulmonary Medici nelly [place], [place] [address] (Wo rk) Scheduled Procedures Name [...] Esquivel, Understanding Action Plan 9:07 AM EDT) [facility] Note: Formatting of this note might be d ifferent from the original. Patient Goal: To experience less side ef fects than his past regimen of Peg and Ribavirin Timeframe to meet goal: 3 months of ther apy documented as of this encounter Visit Diagnoses Not on filedocumented in this encounter Care Teams Diagnostic Technician Relationship Specialty Start Date End Date Laura Cherry APRN PCP - General Family Medicine 03/20/17 04/06/[address] [place] [phone] documented as of this encounter
--- OUTSIDE RECORDS SUMMARY | 2021-11-30 08:23 | XMS_ITS | Encounter Summary ---
:1955 Author Organization [facility] [place] [address] Care Team Providers Name Role Phone Laura Cherry APRN Primary Care Provider Encounter Details Date Type Department Care Team Description 05/17/2017 Telephone Pulmonology at [facility] Feliciano López MD [facility] [place] [phone] PULMONARY MEDICINE [phone] [place] [phone] (Wo rk) Social History Tobacco Use Types [...] this encounter Miscellaneous Notes Telephone Encounter - Feliciano López - 05/17/2017 9:35 AM EST Pulmonary/Critical-Care Fellow Telephone Encounter: I received a call from Mr. Ramos this AM. Saw Dr. Cervantes on 05/15/16. Today he is experiencing symptoms c/w a mild COPD exacerbation. Increased dyspnea, wheezing, and volume of sputum. Character of sputum is otherwise baseline. No fevers, hemoptysis, or myalgias. Received his home O2 yesterday he says. Did not yet receive the PRN prednisone/antibiotic Rx following his recent pulmonary appointment. Plan: ?? Prednisone 40 mg/d x 5 days (w/ x3 refills for future use) ?? Azithromycin x5 days (w/ x3 refills for future use) ?? Instructed to use his nebulizer QID scheduled while awake over the next 48-72 hours ?? He will call me back immediately if his symptoms were to continue to progress Feliciano López MD, 05/17/2017, 9:35 AM Pulmonary & Critical Care Fellow Pager: [phone] documented in this encounter Plan of Treatment Upcoming Encounters Date Type Specialty Care Team Description 12/11/2021 Appointment Radiology 12/11/2021 Office Visit Orthopaedics Marion Tavera APRN [facility] DR ORTHOPAEDIC SURG [place], [place] [address] (Wo rk) 01/15/2022 Appointment Radiology Stiven Cervantes MD [facility] Pulmonary Medici [place], [place] [address] (Wo rk) Scheduled Procedures Name [...] on filedocumented in this encounter Care Teams Workday Director Relationship Specialty Start Date End Date Laura Cherry APRN PCP - General Family Medicine 03/20/17 04/06/19 [address] [place] [address] documented as of this encounter
--- OUTSIDE RECORDS SUMMARY | 2021-11-30 08:23 | XMS_ITS | Encounter Summary ---
:1955 Author Organization [facility] [place] [address] Care Team Providers Name Role Phone Azalia Peña APRN Primary Care Provider Reason for Visit Reason Onset Date Comments Patient Education 09/27/2016 Encounter Details Date Type Department Care Team Description 09/27/2016 Telephone Pharmacy at [facility] Brooks Mata, Patient Education [facility] [email or web address] [phone] Social History Tobacco Use Types Packs/Day [...] Miscellaneous Notes Telephone Encounter - Julia Antunez [facility] - 10/11/2016 1:27 PM EDT [facility] Specialty Pharmacy: Clinical Management Plan We will refrain from calling Mahin. It appears he has his lab order straightened out. Telephone Encounter - Brooks Mata, [facility] - 09/27/2016 8:59 AM EDT [facility] Specialty Pharmacy: Clinical Management Plan Start Date: 07/13/16 Day: 76 Diagnosis: Hepatitis C 2b Drug: Epclusa Directions: One daily Appropriate therapy: yes Comorbidities: See ???Problem List?? Medication reconciliation: completed Antacid/H2RA/PPI use: on hold while on Epclusa therapy (has order for omeprazole 40mg) New medications since beginning therapy: no Consult on medication and disease state: Purpose of call was to make sure that Ace sets up his next set of labs now that he is on his last 28 days of therapy. I asked Ace to call the [facility] and ask to have the lab order sent to his local hospital. Then I told him he will have to call the local hospital and schedule the lab after October 13 when he is expected to have his last dose. While discussing his adherence, which he says is excellent, he mentioned that he vomits about 2 hours after every dose every day. This is not a new problem and we have verified in the past that there is no evidence that the medication is being vomited out (i.e. enough time has passed that it was very likely absorbed). While the Epclusa is known to cause nausea and vomiting, he attributes this problemto long-standing GERD. He has an order for omeprazole 40mg which he has been avoiding since startingthe Epclusa, based on advice given to him at that time. He says he looks forward to finishing the Epclusa so that he can start taking his omeprazole again. He has a bottle at home already. Adherence: very good based on refills and patient responses Side effects: possible n/v, loose stools / diarrhea Hydration: tries to stay hydrated Lab schedule: He will be due for 12 week labs after he finishes the current supply of Epclusa on October 13. Received welcome packet: yes Additional comments: Ace asked if his loose stools and diarrhea might be a side effect of the Epclusa. I told him that they could be and to observe whether these symptoms subside after the Epclusa therapy is finished. Informed patient of specialty pharmacy services: yes Next follow-up: Labs due after 10/13/16 so we will contact him once more on 10/11 to see if everything is set up. documented in this encounter Plan of Treatment Upcoming Encounters Date Type Specialty Care Team Description 12/11/2021 Appointment Radiology 12/11/2021 Office Visit Orthopaedics Marion Tavera APRN [facility] ER DR ORTHOPAEDIC SURG [place], [place] [address] (Wo rk) 01/15/2022 Appointment Radiology Stiven Cervantes MD [facility] er Pulmonary Medici [place], [place] [address] (Wo rk) Scheduled Procedures Name [...] Esquivel, Understanding Action Plan 9:07 AM EDT) [facility] Note: Formatting of this note might be d ifferent from the original. Patient Goal: To experience less side ef fects than his past regimen of Peg and Ribavirin Timeframe to meet goal: 3 months of ther apy documented as of this encounter Visit Diagnoses Not on filedocumented in this encounter Care Teams Polysomnographic Tech Relationship Specialty Start Date End Date Azalia Peña APRN PCP - General 11/19/13 03/19/17 documented as of this encounter
--- OUTSIDE RECORDS SUMMARY | 2021-11-30 08:23 | XMS_ITS | Encounter Summary ---
:1955 Author Organization [facility] [place] [address] Care Team Providers Name Role Phone Azalia Peña APRN Primary Care Provider Reason for Visit Reason Comments Follow-up Encounter Details Date Type Department Care Team Description 06/13/2016 Office Visit Gastroenterology at [facility] Kate Tilley Chronic hepatitis C without hepatic coma; [facility] Jenni Parra APRN Cirrhosis of liver without ascites, un[place] [address] [facility] [phone] [place] [address] Social History Tobacco Use Types Packs/Day Years [...] Sign Reading Time Taken Comments Blood Pressure 137/74 06/13/2016 1:52 PM EST Pulse 76 06/13/2016 1:52 PM EST Temperature - - Respiratory Rate - - Oxygen Saturation - - Inhaled Oxygen Concentration - - Weight 99.8 kg (220 lb) 06/13/2016 1:52 PM EST shoes Height 175.3 cm (5' 9) 06/13/2016 1:52 PM EST Body Mass Index 32.49 06/13/2016 1:52 PM EST documented in this encounter Progress Notes Kate Tilley APRN - 06/13/2016 2:00 PM EST Hepatology Follow Up Note Patient: Soledad Ramos Gender: male : 1955 Provider: Kate Tilley NP Referring Physician: Azalai Peña APRN Soledad Ramos is a 60 y.o. 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 Was previously seen by Caitlin Dowling and was previously treated with 48 weeks of Peg/Ribavin with viral relapse. I first saw him in 07/2015 at which time he was drinking 12 beers/week and I did not treat him due to his alcohol use. Since then he has been doing well. He has cut back on his alcohol use significantly to currently only drinking 1-2 beers/ week. He has had multiple surgeries in the past year for various joint issues. Has pain in knees and ankles and severe peripheral neuropathy. He states he drinks when the pain gets very severe. Denies encephalopathy, ascites, blood in stool, melena, jaundice. Current problem list: ?? Chronic hepatitis C with cirrhosis; viral load (02/16) 234,000 IU/ml; genotype:2b ?? unclear when acquired ?? viral relapse after 48 weeks of treatment with peg and ribavirin ?? Liver biopsy- (07/18): ---Pathologic Diagnosis--- Liver, needle biopsy specimen showing changes consistent with chronic hepatitis C, stage 3-4/4, grade 2/4 (mild activity); and concomitant severe alcoholic/nonalcoholic steatohepatitis/steatofibrosis. ?? Alcoholism- stopped drinking (01/18) ?? Depression and adult attention deficit disorder- seeing Dr. Thornton monthly. ?? Status post bilateral hip replacements secondary to avascular necrosis. ?? Chronic back pain with history of surgery for herniated disk- on methadone. ?? Hypertension. ?? Gastroesophageal reflux disease. ?? 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 imaging: CT (06/2009) Lung changes consistent with emphysema. No other diagnostic abnormality in the abdomen. -AFP: (10/19) 5 Portal Hypertension surveillance: EGD: (01/2013) no EV or PHG Viral Load: Pretreatment (08/11/2009) 1,294,013 IU; wk 6 (10/12)= <43 IU (not detected); wk 9 (10/30) < 43 but detected : (12/11/09) <43 -: wk 24 (02/14/2010) <43 +; (02/27/10) < 43 -: (04/16/2010) < 43 - Review of Systems Constitutional: Negative for fever. + fatigue Respiratory: Negative for cough and shortness of breath. Cardiovascular: Negative for chest pain. Gastrointestinal: Negative for nausea, vomiting and abdominal pain, no blood, not black Current Outpatient Prescriptions Medication Sig Dispense Refill ??? Miscellaneous Medical Supply [facility] Script for two intranasal mucosal atomizing devices for use with naloxone syringe. 2 each 0 ??? acetaminophen (TYLENOL) 500 mg Tablet Take 1 tablet by mouth every 8 hours. ??? traMADol (ULTRAM) 50 mg Tablet Take 2 tablets by mouth every 6 hours. #56 for a 7 day supply. 56tablet 0 ??? DULERA 100-5 mcg/actuation HFA Aerosol Inhaler inhale 2 puffs by mouth twice a day 0 ??? tamsulosin (FLOMAX) 0.4 mg Capsule, Sust. Release 24 hr 0 ??? furosemide (LASIX) 40 mg Tablet Take 1 tablet by mouth daily. ??? gabapentin (NEURONTIN) 600 mg Tablet Take 2 tablets by mouth 3 times daily. ??? omeprazole (PRILOSEC) 40 mg Capsule, Delayed Release(E.C.) Take 40 mg by mouth daily. 0 ??? buPROPion (WELLBUTRIN XL) 300 mg 24 hr tablet take 1 tablet by mouth every morning (Patient taking differently: take 1 tablet by mouth every morning 100mg) 30 tablet 5 ??? multivitamin (THERAGRAN) tablet Take 1 tablet by mouth daily. ??? amlodipine (NORVASC) 5 mg tablet Take 1 tablet by mouth daily. 90 tablet 3 ??? nalOXone (NARCAN) 1 mg/mL Syringe Reported on 06/13/2016 0 ??? hydrOXYzine (ATARAX) 50 mg Tablet Reported on 06/13/2016 0 ??? potassium chloride (KLOR-CON) 20 mEq Packet Take 20 mEq by mouth daily. Reported on 06/13/2016 0 ??? atenolol (TENORMIN) 50 mg tablet Take 1 tablet by mouth 2 times daily. (Patient not taking: Reported on 06/13/2016) 90 tablet 3 No current facility-administered medications for this visit. Allergies: Allergies Allergen Reactions ??? Morphine Other (See Comments) STATES THAT IT DOES NOT TAKE HIS PAIN AWAY Social Hx: Lives with . He has been drinking alcohol intermittently to help with the pain. He drinks 1-2 beers week. No recreational drug use. Does not smoke cigarettes regularly - maybe a couple puffs occasionally. Objective: Vitals: 06/13/16 1352 BP: 137/74 Pulse: 76 Weight: 99.8 kg (220 lb) Height: 175.3 cm (5' 9) Body mass index is 32.49 kg/(m^2). Physical Exam GEN: Healthy-appearing in no acute distress. Appears stated age. Cooperate and answers questions appropriately. SKIN: No rashes or abnormal lesions. No palmar erythema, no spider nevi NECK: No adenopathy and no thyromegaly. HEENT: Nonicteric sclera. PERRL, EOMI EXT: No cyanosis, clubbing or edema. Lab Results Component Value Date WBC 13.4 (H) 12/14/2015 HGB 12.6 (L) 12/14/2015 HCT 38.0 (L) 12/14/2015 MCV 92.9 (H) 12/14/2015 PLATELET 267 12/14/2015 No results for input(s): INR in the last 168 hours. Lab Results Component Value Date ALT 15 08/09/2015 AST 18 08/09/2015 ALKPHOS 122 (H) 08/09/2015 BILITOT 0.6 08/09/2015 Chemistry Component Value Date/Time NA 136 12/14/2015 0322 K 4.0 12/14/2015 0322 CL 96 (L) 12/14/2015 0322 CO2 26 12/14/2015 0322 BUN 11 12/14/2015 0322 CREATININE 1.11 12/14/2015 0322 Component Value Date/Time CALCIUM 8.6 12/14/2015 0322 ALKPHOS 122 (H) 08/09/2015 1104 AST 18 08/09/2015 1104 ALT 15 08/09/2015 1104 BILITOT 0.6 08/09/2015 1104 Assessment and Plan: Mr. Ramos is a 60 y.o. man with Cirrhosis from Hepatitis C who had viral relapse after his last peg interferon and ribavirin therapy. 1. Cirrhosis. Well compensated with no complications. Discussed that he should stop all alcohol use,which he is working on, and has cut back significantly. 2. Hepatitis C. GT 2. I would recommend treatment of his Hepatitis C to prevent progression of his liver disease. Recommend treatment with 12 weeks of Epclusa. We discussed treatment today, including treatment regimen, side effects, drug interactions, the importance of medication adherence and the process of getting medication. He will do blood work today. Plan to submit PA after blood work returns. 3. HCC surveillance. Last ultrasound 07/2015 with no lesions. He should have imaging of his liver every 6 months. Plan to schedule u/s today for next available. 4. Portal Hypertension. EGD 08/2015 with no varices. Normal platelets. If Hep C is treated may not need repeat EGD, otherwise repeat in 08/2018. 5. Alcohol use. Has cut down significantly, working on cutting out last beer/week. Follow up with u/s next available and then in six months for appt and labs, and ultrasound. Kate Tilley APRN Section of Gastroenterology [place] [address] 25 of this 30 minute visit in face to face discussion regarding disease, prognosis and treatment documented in this encounter Plan of Treatment Upcoming Encounters Date Type Specialty Care Team Description 12/11/2021 Appointment Radiology 12/11/2021 Office Visit Orthopaedics Marion Tavera APRN [facility] DR ORTHOPAEDIC SURG [place], [place] [address] (Wo rk) 01/15/2022 Appointment Radiology Stiven Cervantes MD [facility] Pulmonary [place], [place] [address] (Wo rk) Scheduled Orders Name Type Priority Associated Diagnoses Order S chedule CBC (with Diff) Lab Routine Chronic hepatitis C Expec lul: 06/13/2016, without hepatic coma Expires : 06/13/2017 Comprehensive metabolic Lab Routine Chronic hepatitis C Expected: 06/13/2016, panel (non-fasting) without hepatic coma Expires: 06/13/2017 Prothrombin Time Lab Routine Chronic hepatitis C Expe cted: 06/13/2016, without hepatic coma Expires : 06/13/2017 Comprehensive metabolic Lab Routine Chronic hepatitis C Expected: 06/13/2016 panel (non-fasting) without hepatic coma (Approximate), Expires: 2017 CBC (with Diff) Lab Routine Chronic hepatitis C Expec lul: 06/13/2016 without hepatic coma (Approx imate), Expires: 2017 Prothrombin Time Lab Routine Chronic hepatitis C Expe cted: 06/13/2016 without hepatic coma (Approx imate), Expires: 2017 Scheduled Procedures Name Priority Associated Diagnoses Date/Time DEBRIDEMENT SKIN, SUBCU, MUSCLE, R great toe amp utation, wound LOWER EXTREMITY (WRVU 2.7) closure MODIFIER WOUND VAC R great toe amputation, wound closure documented as of this encounter Procedures Procedure Name Priority Date/Time Associated Comments Diagnosis HEMOGRAM Routine 06/13/2016 3:05 PM Cirrhosis of liver Res ults for this EST without ascites, procedure a re in unspecified hepatic the resu lts cirrhosis type section. DIFFERENTIAL, Routine 06/13/2016 3:05 PM Cirrhosis of liver Re sults for this AUTOMATED EST without ascites, procedure a re in unspecified hepatic the resu lts cirrhosis type section. HEPATITIS C RNA, Routine 06/13/2016 3:05 PM Chronic hepatitis C Results for this QUANTITATIVE, PCR EST without hepatic procedu re are in coma the results section. PROTHROMBIN TIME Routine 06/13/2016 3:05 PM Cirrhosis of liver Results for this EST without ascites, procedure a re in unspecified hepatic the resu lts cirrhosis type section. CBC (WITH DIFF) Routine 06/13/2016 3:05 PM Cirrhosis of liver EST without ascites, unspecified hepatic cirrhosis type COMPREHENSIVE Routine 06/13/2016 3:05 PM Cirrhosis of liver Re sults for this METABOLIC PANEL EST without ascites, procedur e are in (NON-FASTING) unspecified hepatic the res ults cirrhosis type section. documented in this encounter Results US [...] 11:09 am) PATIENT INFO: ID #: ? [id number] ?: ??[birth year] (60 yrs) Name: ? SOLEDAD RAMOS ? Visit Date: 07/04/2016 09:47 am PERFORMED BY: Performed By: ? Sommer Wiley RDMS Attending: ?Brijesh DYSON, Chary Sykes Associate: ?Dave Botello MD Referred By: ?TRUDY BOWDEN MD Location: ? [place] SERVICE(S) PROVIDED: ??UABDLIM - Abdominal Limited Survey Si ngle ? [id number] ??Organ or Quadrant - [id number] INDICATIONS: ??Compensated cirrhosis, assess for HCC COMPARISON: Prior US: 08/09/15 ------ LIVER: ------ Right Lobe Length: ?? [...] seen. Procedure Note Chary Coley MD - 07/04/2016Formattin g of this note might be different from the original. Abdominal (Signed Final 07/04/2016 11:0 9 am) PATIENT INFO: ID #: [id number] : [birth year] (60 y rs) Name: SOLEDAD RAMOS Visit Date: 2016 09:47 am PERFORMED BY: Performed By: Sommer Wiley RDMS Attending: Chary Coley MD Associate: Dave Botello MD Referred By: TRUDY BOWDEN MD Location: [place] SERVICE(S) PROVIDED: UABDLIM - Abdominal Limited Survey [place] [id number] Organ or Quadrant - [id number] INDICATIONS: Compensated cirrhosis, assess for HCC COMPARISON: [...] bowel Body: Not visualized, obscured by overl gayal bowel RIGHT KIDNEY: Size (cm) L: 11.4 [...] Trudy Bowden MD IMG US GEN ORDERABLES (ABNORMAL) Differential, Automated (06/13/2016 3:05 PM EST) [facility] Method Time Signature Neutrophils % 69.7 % [facility] Neutr Abs (ANC) 8.25 (H) 1.70 - [facility] 6.10 [facility] x10(3)/[facility] LABORATORY Lymphocytes % 15.6 % [facility] Lymphocytes Abs 1.8 0.9 - 3.2 [facility] x10(3)/[facility] LABORATORY Monocytes % 10.2 % [facility] Monocyte Abs 1.2 (H) 0.3 - 0.9 [facility] x10(3)/[facility] LABORATORY Eosinophils % 3.2 % [facility] Eosinophils Abs 0.4 0.0 - 0.4 [facility] x10(3)/[facility] LABORATORY Basophils % 0.7 % [facility] Basophils Abs 0.1 0.0 - 0.1 [facility] x10(3)/[facility] LABORATORY Immature Gran % 0.60 % [facility] Comment: Immature granulocytes(IG's)percentage an d absolute count will include metamyelocytes, myelocytes, and promyelo cytes. Blood smears from CBCs yielding IG's will be scanned manually for concor dance. If this scan disagrees with the automated IG or if promyelocytes are not ed, a manual differential will be performed. Shannan Gran Abs 0.07 (H) 0.00 - 0.04 x10(3)/[facility] LABORATORY Specimen Anatomical Collection Method Collection Time Receive d Time (Source) Location / / Volume Laterality Blood specimen 06/13/2016 3:05 PM 017 3:10 (specimen) EST PM EST Resulting Agency Comment Spec In Lab James Aiken MD HEMATOLOGY ORDERABLES Performing Organization Address City/State/[place] [address] (ABNORMAL) Hemogram (06/13/2016 3:05 PM EST) Analysis Performed At Patho logist Time Signature WBC 11.8 (H) 4.0 - 9.5 [facility] x10(3)/[facility] LABORATORY RBC 4.26 (L) 4.58 - [facility] x10(6)/[facility] LABORATORY Hemoglobin 14.0 13.7 - [facility] 16.[facility] gm/dL [facility] Hematocrit 40.4 (L) 40.5 - [facility] 48.5 % [facility] MCV 94.8 (H) 82.9 - [facility] 93.1 [facility]ORATORY MCH 32.9 (H) 27.5 - [facility] 32.1 pg [facility] MCHC 34.7 32.0 - [facility] 35.7 gm/dL [facility] Platelets 313 145 - 357 [facility] x10(3)/[facility] LABORATORY RDWSD 43.[address] [facility] 45.0 [facility] LABORATORY RDWCV 12.8 11.4 - [facility] 13.8 % [facility] MPV 9.8 7.6 - 12.9 [facility] LABORATORY nRBC % Auto 0.0 % [facility] nRBC Abs Auto 0.000 0.000 - [facility] 0.000 [facility] x10(3)/[facility] LABORATORY Specimen Anatomical Collection Method Collection Time Receive d Time (Source) Location / / Volume Laterality Blood specimen 06/13/2016 3:05 PM 017 3:10 (specimen) EST PM EST Resulting Agency Comment Spec In Lab James Aiken MD HEMATOLOGY ORDERABLES Performing Organization Address [facility]/ZIP [facility] Phon e Number [place] [phone] Prothrombin Time (06/13/2016 3:05 PM EST) athologist Signature PT 13.7 12.0 - 15.0 [facility] LABORATORY Comment: An INR <2.0 indicates adequate [...] be appropriate depending on c linical circumstances. INR 1.0 0.9 - 1.1 [facility] Specimen Anatomical Collection Method Collection Time Receive d Time (Source) Location / / Volume Laterality Blood specimen 06/13/2016 3:05 PM 017 3:10 (specimen) EST PM EST Resulting Agency Comment Spec In Lab James Aiken MD HEMATOLOGY ORDERABLES Performing Organization Address City/[facility] Phon e Number [place] [phone] Comprehensive metabolic panel (non-fasting) (06/13/2016 3:05 PM EST) athologist Signature Glucose Lvl 114 65 - 199 [facility] mg/dL [facility] Comment: Diabetes: >=200 mg/dL plus symp toms BUN 14 10 - 20 mg/dL [facility] Creatinine 1.14 0.80 - 1.50 mg/dL [facility] Comment: Please note that the pediatric reference intervals supplied above were not validated at [facility]. Results from pediatri c patients should be interpreted in conjunction to the patient's age, height and muscle mass. Sodium 141 135 - 145 mmol/L [facility] Potassium 4.3 3.5 - 5.0 mmol/L [facility] Comment: Please note: ??Patients with WBC >100,00 0 may have falsely elevated Potassium levels. ??For accurate Potassium quantif ication in these patients send serum separator tube (gold top) for subsequent determinations. ??Contact the Clinical Chemistry Laboratory if there are any qu estions. Chloride 98 98 - 107 mmol/L [facility] CO2 28 22 - 31 mmol/L [facility] Anion Gap 15 5 - 15 mmol/L [facility] Calcium 10.1 8.5 - 10.5 mg/dL [facility] Total Protein 7.6 6.1 - 8.0 gm/dL [facility] Albumin 4.5 3.2 - 5.2 gm/dL [facility] AST 20 0 - 39 unit/L [facility] ALT 19 0 - 55 unit/L [facility] Alk Phos 102 40 - 120 unit/L [facility] Total Bilirubin 0.3 0.2 - 1.3 mg/dL [facility] Bili, Direct 0.1 0.0 - 0.3 mg/dL [facility] Estimated GFR >60 >=60 [facility] Comment: This estimated GFR (eGFR) value was calc ulated using the MDRD equation which has been validated on patients between t he ages of 18 and 70. The MDRD should not be used to assess kidney function in patients < 18 years of age or in patients with extremes of body mass, or in patients with acute kidney failure. This value should be multiplied by 1.2 f or patients. For further information please copy and past e the following links into your internet browser. http://Health 123/DHnkdep http://Health 123/DHMCnkf Specimen Anatomical Collection Method Collection Time Receive d Time (Source) Location / / Volume Laterality Blood specimen 06/13/2016 3:05 PM 017 3:10 (specimen) EST PM EST Resulting Agency Comment Spec In Lab James Aiken MD CHEMISTRY ORDERABLES Performing Organization Address City/State/[place] [address] Hepatitis C RNA, quantitative, PCR (06/13/2016 3:05 PM EST) Component Value Ref Test Analysis Performed At [facility] gist Range Method Time Signature HCV Viral 5,327,862 IU/mL [facility] LABORATORY HCV Viral Result: [id number] IU/mL [facility] Indication for Study: Hepatitis C Infection [facility] Analysis: A quantitiative real time reverse transcriptase PCR assay was LABORATORY performed on extracted viral RNA for the purpose of quantifi cation. Sample: plasma (1 mL minimum volume) Method: Agustin Jessica TaqMAN 48 HCV Linear Range: 15 IU/mL - 100,000,000IU/mL (95% CI) Note: This assay is being pe rformed in the [facility] Molecular Pathology Laboratory. Endy Bliss, Ph.D. Director, Molecular Pathology Comment: [VERIFIED DATE]06.24.16 Verified By:Harley Almodovar (Electronic Signature) Specimen Anatomical Collection Method Collection Time Receive d Time (Source) Location / / Volume Laterality Blood specimen 06/13/2016 3:05 PM 017 (specimen) EST 10:09 AM EST Resulting Agency Comment Spec In Lab Trudy Bowden MD IMMUNOLOGY ORDERABLES Performing Organization Address City/State/[place] [address] documented in this encounter Visit Diagnoses Diagnosis Chronic hepatitis C without hepatic coma Cirrhosis of liver without ascites, unsp ecified hepatic cirrhosis type Chronic hepatitis C without hepatic coma documented in this encounter Care Teams Sourcer Relationship Specialty Start Date End Date Azalia Peña APRN PCP - General 11/19/13 03/19/17 documented as of this encounter
--- OUTSIDE RECORDS SUMMARY | 2021-11-30 08:23 | XMS_ITS | Encounter Summary ---
:1955 Author Organization [facility] [place] [address] Care Team Providers Name Role Phone Laura Cherry APRN Primary Care Provider Encounter Details Date Type Department Care Team Description 05/16/2017 Telephone Pulmonology at [facility] [place] [place] [address] Social History Tobacco Use Types Packs/Day [...] Telephone Encounter - Agatha Campos RT - 05/16/2017 3:58 PM EST Called Mahin Ramos back at home in follow up to his voice message. Reviewed set up for his nebulizer kit- he verbalized understanding. He was also having his oxygen delivered at this time. documented in this encounter Plan of Treatment Upcoming Encounters Date Type Specialty Care Team Description 12/11/2021 Appointment Radiology 12/11/2021 Office Visit Orthopaedics Marion Tavera APRN [facility] ER DR ORTHOPAEDIC SURG [place], [place] [address] (Wo rk) 01/15/2022 Appointment Radiology Stiven Cervantes MD [facility] er Pulmonary Medici [place], [place] [address] (Wo rk) Scheduled Procedures Name [...] filedocumented in this encounter Care Teams Manager Pest Relationship Specialty Start Date End Date Laura Cherry APRN PCP - General Family Medicine 03/20/17 04/06/[address] [place] [address] [phone] documented as of this encounter
--- OUTSIDE RECORDS SUMMARY | 2021-11-30 08:23 | XMS_ITS | Encounter Summary ---
:1955 Author Organization [facility] [place] [address] Care Team Providers Name Role Phone Azalia Peña APRN Primary Care Provider Encounter Details Date Type Department Care Team Description 12/30/2016 Telephone Psychiatry and Behavioral Rin Polanco, [facility] [place] [address] [place] [address] Social History Tobacco Use Types Packs/Day Years [...] Miscellaneous Notes Telephone Encounter - Rin Polanco, [facility] - 12/30/2016 5:12 PM EDT Patient called stating he is trying to deal with life after all my meds were taken away. Patient vented his frustration that he has chronic pain from numerous medical issues and was prescribed methadone for 20 years and 5 years ago it was stopped. He states he never abused it and is angry that he isno longer able to be prescribed methadone because of laws and addicts abusing it causing it to be difficult for pain patients to obtain relief. He reports he has bought methadone on the street when he can no longer deal with the pain. He also states he has been using alcohol too much to help cope. His speech is slightly slurred during the conversation. He reports he has been hospitalized at the [facility] 6 times in the past and he attended the pain clinic at [facility] and at [place] [facility]. He became tearful several times during the conversation. He talked about feeling hopeless and in a dark place but he denied SI at this time. His is home with him during the phone call (this administrative underwriter could hear him speaking with her and could hear a female voice respond to him). He is future oriented stating he has surgery scheduled for tomorrow morning at [facility] on his foot. He reports protective factors as his of 43 years, his son and daughter as well as his 3 grandchildren. Provided an outlet for patient to vent, provided support and discussed resources including the [facility], methadone clinic, suboxone treatment and the local [facility] butpatient states he has tried all of those and there are reasons why each one did not work. Patient ended the call by thanking this administrative underwriter for listening. He was encouraged to call as needed for additional support. documented in this encounter Plan of Treatment Upcoming Encounters Date Type Specialty Care Team Description 12/11/2021 Appointment Radiology 12/11/2021 Office Visit Orthopaedics Marion Tavera APRN [facility] ORTHOPAEDIC SURG [place], [place] [address] (Wo rk) 01/15/2022 Appointment Radiology Stiven Cervantes MD [facility] Pulmonary Medici nelly [place], [place] [address] (Wo rk) Scheduled Procedures Name [...] on filedocumented in this encounter Care Teams Weigher And Mixer Relationship Specialty Start Date End Date Azalia Peña APRN PCP - General 11/19/13 03/19/17 documented as of this encounter
--- OUTSIDE RECORDS SUMMARY | 2021-11-30 08:23 | XMS_ITS | Encounter Summary ---
:1955 Author Organization [place] [address] Care Team Providers Name Role Phone Azalia Peña APRN Primary Care Provider Reason for Visit Reason Comments Aftercare Of [facility] L TKA 12/13/15 Encounter Details Date Type Department Care Team Description 01/16/2016 Office Visit Orthopaedics at [facility] [place] Gordon Mallory Status post total [facility] [place] [address] [place] [address] ORTHOPAEDICS [place], [place] [address] Social History Tobacco Use Types [...] Sign Reading Time Taken Comments Blood Pressure 150/83 01/16/2016 1:42 PM EDT Pulse 65 01/16/2016 1:42 PM EDT Temperature 36.9 ??C (98.4 ??F) 01/16/2016 1:42 PM EDT Respiratory Rate - - Oxygen Saturation - - Inhaled Oxygen Concentration - - Weight 96.5 kg (212 lb 11.2 oz) 01/16/2016 1:42 PM EDT Height 175.3 cm (5' 9) 01/16/2016 1:42 PM EDT Body Mass Index 31.41 01/16/2016 1:42 PM EDT documented in this encounter Progress Notes Arcadio Aggarwal PA - 01/16/2016 1:50 PM EDT Arthroplasty History 1. 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 Case Date: 12-13-15 Surgeon: Barrington Mallory Procedure: left total knee replacement HPI: Mahin Ramos is a very pleasant 60 y.o. male who presents for a 5 weeks follow-up of the above procedure. The patient has been doing very well and his pain is markedly improved over preoperativestatus. No fevers, chills, nausea, vomiting, or symptoms of infection. Mahin has been ambulating with no assistive device and working with PT. ROS: Denies fevers, chills, night sweats, nausea, or vomiting. Physical Exam: Well-appearing male in no acute distress. Alert and Oriented x 3 and answers all questions appropriately. The incision is well healed, with no signs of infection. Knee Exam: Left Knee ROM: Extension:0 Flexion: 120 Alignment: 0-4 degrees Varus Stability: A/P Translation <5mm Varus <5mm Valgus <5mm Extension La degrees or less Patella Tracking: Normal Pulses Palpable: Left PT:Yes Left DP:Yes Motor/Sensory: Distal Motor: Normal Distal Sensory: Normal Quadriceps Strength: 4 X-RAYS: Multiple radiographic views were obtained at my request and reviewed with the patient. X-rays show a well-placed prosthesis with no evidence of fracture or loosening. ASSESSMENT/PLAN: 5 weeks post-op and doing well. Continue weightbearing as tolerated and working on range of motion, and we will see his back in 11 months for repeat examination. X-rays will be needed at that time. Patient may return to normal activities as his pain and function allow. Patient was seen and evaluated with Dr Mallory Signed: NIEVES AGUILERA documented in this encounter Plan of Treatment Upcoming Encounters Date Type Specialty Care Team Description 12/11/2021 Appointment Radiology 12/11/2021 Office Visit Orthopaedics Marion Tavera APRN [facility] DR ORTHOPAEDIC SURG [place], [place] [address] (Wo rk) 01/15/2022 Appointment Radiology Stiven Cervantes MD [facility] Pulmonary Medici [place], [place] [address] (Wo rk) Scheduled Procedures Name Priority Associated Diagnoses Date/Time DEBRIDEMENT SKIN, SUBCU, MUSCLE, R great toe amp utation, wound LOWER EXTREMITY (WRVU 2.7) closure MODIFIER WOUND VAC R great toe amputation, wound closure documented as of this encounter Visit Diagnoses Diagnosis Status post total left knee replacement documented in this encounter Care Teams Fibrous Plasterer Relationship Specialty Start Date End Date Azalia Peña APRN PCP - General 11/19/13 03/19/17 documented as of this encounter
--- OUTSIDE RECORDS SUMMARY | 2021-11-30 08:24 | XMS_ITS | Encounter Summary ---
:1955 [place] [address] Care Team Providers Name Role Phone Azalia Peña APRN Primary Care Provider Encounter Details Date Type Department Care Team Description 10/24/2015 Telephone [place] at [facility] [place] Mallory MD [facility] [place] [address] ORTHOPAEDICS [phone] [place] [id number] (Wo rk) Social History Tobacco Use Types Packs/Day Years Used Date Former Smoker Cigarettes 0.1 40 Quit: 04/29/20 15 Smokeless Tobacco: Former User Comments: STATES THAT [...] this encounter Miscellaneous Notes Telephone Encounter - Carol Ann Alicea RN - 10/24/2015 9:29 AM EDT Returned call to patient to discuss his hip pain, received voice mail, left message with contact number. documented in this encounter Plan of Treatment Upcoming Encounters Date Type Specialty Care Team Description 12/11/2021 Appointment Radiology 12/11/2021 Office Visit Orthopaedics Marion Tavera APRN [facility] ORTHOPAEDIC SURG [place], [place] [address] (Wo rk) 01/15/2022 Appointment Radiology Stiven Cervantes MD [facility] Pulmonary Medici [place], [place] [address] (Wo rk) Scheduled Procedures Name Priority Associated Diagnoses Date/Time DEBRIDEMENT SKIN, SUBCU, MUSCLE, R great toe amp utation, wound LOWER EXTREMITY (WRVU 2.7) closure MODIFIER WOUND VAC R great toe amputation, wound closure documented as of this encounter Visit Diagnoses Not on filedocumented in this encounter Care Teams Early Morning Relationship Specialty Start Date End Date Azalia Peña APRN PCP - General 11/19/13 03/19/17 documented as of this encounter
--- OUTSIDE RECORDS SUMMARY | 2021-11-30 08:24 | XMS_ITS | Encounter Summary ---
:1955 Author Organization [facility] [place] [address] Care Team Providers Name Role Phone Azalia Peña APRN Primary Care Provider Encounter Details Date Type Department Care Team Description 12/04/2015 Telephone Care Management Mago Reid [facility] [place] [address] Social History Tobacco Use Types Packs/Day Years [...] this encounter Miscellaneous Notes Telephone Encounter - Mago Collazo - 12/04/2015 4:03 PM EDT Spoke with Mahin about aftercare and d/c plans cc LTKA with Dr. Mallory on 12/13/15. He is currently ambulating either independently or with crutches. He stated that he spends 90% of his time in bed. He said that he has pain all over. When he ambulates he feels like it is dangerous and fears he will fall. He reports getting little sleep, maybe 2-3 hours and wakes up with shooting pains. One of his primary concerns is pain management. 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 He went to [facility] for treatment and got on methadone. He expressed that he was doing well until a urine screen he did at the pain clinic came back positive for substances.He expressed that the pain affects him mentally and emotionally. He feels depressed. He is seeing a therapist but does not want her contacted. He stated that they do not connect and he is looking for anew therapist. His primary caregiver is his , Padmini (Vidhya). HIs 42 y/o daughter lives on their property and she will be coming over to assist him in his recovery. Her name is Sparkle and she has 2 children. Hisson, Ross, will also be around. He said that his family are a great support for him. He has Medicare [place] and [place] for health insurance. He has no cc about his health insurance coverage. He has prescription coverage and no cc about affording his prescription co-pays. DME: He has a 2 FWW. [facility]NA: [facility] [place] [facility] [place] [address] [facility] [address] [place] [address] SNF: No selection. Pt prefers to go home. OP PT: [facility] OP [facility] [address] [place] [address] His PCP is aware of surgery. He wants a new PCP because he feels his PCP is enabling him to remain in pain and stay in bed. He will be transported to and from surgery by his and 2 children. He does not have an ADV DIR. He was encouraged to call with any further questions. documented in this encounter Plan of Treatment Upcoming Encounters Date Type Specialty Care Team Description 12/11/2021 Appointment Radiology 12/11/2021 Office Visit Orthopaedics Marion Tavera , ASSISTANT ACTIVITIES DIRECTOR [facility] ORTHOPAEDIC SURG [place], [place] [address] (Wo rk) 01/15/2022 Appointment Radiology Stiven Cervantes MD [facility] Pulmonary Medici [place], [place] [address] (Wo rk) Scheduled Procedures Name Priority Associated Diagnoses Date/Time DEBRIDEMENT SKIN, SUBCU, MUSCLE, R great toe amp utation, wound LOWER EXTREMITY (WRVU 2.7) closure MODIFIER WOUND VAC R great toe amputation, wound closure documented as of this encounter Visit Diagnoses Not on filedocumented in this encounter Care Teams Hospice Aide Relationship Specialty Start Date End Date Azalia Peña APRN PCP - General 11/19/13 03/19/17 documented as of this encounter
--- OUTSIDE RECORDS SUMMARY | 2021-11-30 08:24 | XMS_ITS | Encounter Summary ---
:1955 Author Organization [facility] Address [facility] [place] [address] Care Team Providers Name Role Phone Azalia Peña APRN Primary Care Provider Reason for Referral Consultation (Routine) - Closed Specialty Diagnoses / Procedures Referred By Contact Refer red To Contact Pain Management Diagnoses Status post total left knee replacement Chronic back pain, unspecified back pain laterality, unspecified location Polysubstance abuse Ced Medina APRN Fanciullo, Gilbert J, [facility] [place] [address] [facility] PAIN CL[facility]IC [place], [place] [address] Phone: Fax: Referral ID Status Reason Start Date Expiration Date Visits V isits Requested Authorized [id number] Closed Consult, 12/14/2015 12/13/2016 1 1 Test & Treat Reason for Visit Auth/Cert Specialty Diagnoses / Procedures Referred By Contact Refer red To Contact Diagnoses Avascular necrosis of bone Right knee AVN Procedures PRO TOTAL KNEE ARTHROPLASTY @TOTAL KNEE ARTHROPLASTY MODIFIER TC3 FIXED MODULAR DEPUY MODIFIER TC3 ROTATING PLATFORM DEPUY Referral ID Status Reason Start Date Expiration Date Visits Requ ested Visits Authorized [id number] 1 1 Encounter Details Date Type Department Care Team Description 12/13/2015 - Hospital Encounter 2 Davide Trejo Status post total left knee replacement; 12/14/2015 [place] Kyle Beaver MD Chronic back pain, unspecified back pain laterality, unspecified location; Hospital [facility] Polysubstance abuse [facility] [place], [place] [id number] [phone] Social History Tobacco Use Types Packs/Day Years Used Date Former Smoker Cigarettes 0.1 42 Quit: 09/28/19 16 Smokeless Tobacco: Former User Comments: STATES THAT HE STOPPED TWO MON AGO 04/2015 Alcohol Use Standard Drinks/Week Comments [...] Sign Reading Time Taken Comments Blood Pressure 163/80 12/14/2015 12:07 PM EDT Pulse 86 12/14/2015 12:07 PM EDT Temperature 36.9 ??C (98.4 ??F) 12/14/2015 12:07 PM EDT Respiratory Rate 16 12/14/2015 12:07 PM EDT Oxygen Saturation 92% 12/14/2015 12:07 PM EDT Inhaled Oxygen Concentration - - Weight 96.2 kg (212 lb) 12/13/2015 11:03 AM EDT Height 175.3 cm (5' 9) 12/13/2015 11:03 AM EDT Body Mass Index 31.31 12/13/2015 11:03 AM EDT documented in this encounter Discharge Summaries Ced Medina APRN - 12/14/2015 3:12 PM EDT Discharge Summary Patient Name: Mahin Ramos Patient Age: 60 y.o. Language: Angolan Race: White Ethnicity: Not nor Admit date: 12/13/2015 Discharge date and time: 12/14/2015 Attending Physician: Davide Mallory MD Discharge Physician: Davide Mallory MD Follow-up Recommendations for Providers: See discharge instructions for additional details. Future Appointments Date Time Provider Department Center 12/20/2015 1:45 PM Renata Lehman APRN [facility] 01/16/2016 12:50 PM [facility] DX ROOM 1 Xray [facility] 01/16/2016 1:50 PM Davide Mallory MD [facility] 3C [facility] Inpatient Provider Contact Information: Davide Mallory MD Orthopedics: [phone] After hours and weekends, call [facility] Lifestyle Director, , and have the Orthopedic resident paged. Discharge Diagnoses (Hospital Problems) and Secondary Diagnoses (Chronic Problems): Active Hospital Problems Diagnosis ??? S/P L TKA 12/13/15 Dr. Mallory ??? Avascular necrosis of bone Resolved Hospital Problems Diagnosis Date Resolved No resolved problems to display. Active Non-Hospital Problems Diagnosis ??? Cirrhosis ??? Ankle fracture, left ??? Polysubstance abuse ??? Avascular necrosis bilateral knees ??? Confusion ??? Community acquired pneumonia ??? Imbalance ??? Hepatitis C ??? Alcohol dependence ??? Anixety D/O NOS ??? ADHD NOS ??? Chronic back pain ??? Major depressive disorder, single episode, unspecified Operations/Major Procedures: 12/13/2015 Surgeon(s) and Role: * Davide Mallory MD - Primary * Kel Hair MD - Resident-Surgeon [place] Procedure(s): LEFT TOTAL KNEE ARTHROPLASTY TC3 FIXED MODULAR DEPUY TC3 ROTATING PLATFORM DEPUY History of Presentation (per Op note): Mahin Ramos is a 60 y.o. male with a history of progressively worsening left knee pain. After having failed conservative, non-surgical attempts at managing the pain and limitations of functional capabilities, it was felt that the only remaining option was surgical. A detailed conversation regardingthe risks and benefits of knee arthroplasty surgery was had with the patient. The risks discussed included but were not limited to: infection, bleeding (that may or may not require transfusion), injuryto neurologic or vascular structures (that may or may not permanent), fracture, instability, leg-length inequality, premature loosening or failure/wear of the implants, blood clots, medical complications, anaesthesia-related complications (both intra and postoperative), and . Subsequent to this conversation, all of the patient???s questions were answered in great detail and informed consent was subsequently obtained for a left total knee arthroplasty. Hospital Course: The patient was admitted for the above operation. DVT prophylaxis is: Aspirin 81mg BID x 30 days. Patient began rehab on POD#1 with weight bearing as tolerated of left leg remembering to use protectionat all times for balance and protection. On POD#1 the operative dressing was dry and intact and was benign. Patient did have a bowel movement prior to discharge and was passing flatus and was taking a diet without difficulty. Pain is controlled on oral medications, he will follow up in the Pain Clinicfor on-going management. Patient was voiding spontaneously without issue. By POD#1 the patient was medically stable and was cleared for safe discharge to home per PT. Vital Signs at Discharge: Weight: Wt Readings from Last 1 Encounters: // 96.2 kg (212 lb) Height: Ht Readings from Last 1 Encounters: //16 175.3 cm (5' 9) HC: HC Readings from Last 1 Encounters: No data found for HC BMI: Body mass index is 31.31 kg/(m^2). Last value Range last 24 hrs Temperature Temp: 36.9 ??C (98.4 ??F) Temp: [36.4 ??C (97.5 ??F)-37.5 ??C (99.5 ??F)] Heart Rate Heart Rate: 86 Heart Rate: [65-95] Blood Pressure BP: 163/80 BP: (126-177)/(55-107) Respiratory Rate Resp: 16 Resp: [8-21] SpO2 SpO2: 92 % SpO2: [92 %-97 %] Art BP BP (Arterial Line): -- Functional and Cognitive Status: Patient mobilizing with walker, cognitively intact at baseline mental status at time of discharge. Important Studies and Lab Data: Labs: Last 3 wbc, hgb, hct plt Recent Labs 12/14/15 0322 11/14/15 1311 08/09/15 1104 WBC 13.4* 13.4* 10.6* HGB 12.6* 14.0 14.9 HCT 38.0* 42.1 44.8 PLATELET 267 301 326 Last 3 Lytes Recent Labs 12/14/15 0322 11/14/15 1311 08/09/15 1104 NA 136 140 142 K 4.0 4.6 4.6 CL 96* 99 97* CO2 26 29 31 BUN 11 12 9* CREATININE 1.11 1.06 1.20 Last 3 LFTs Recent Labs 08/09/15 1104 AST 18 ALT 15 ALKPHOS 122* BILITOT 0.6 BILIDIR 0.1 Studies: Xr Knee Diagnostic 1 Or 2 View Left Result Date: 12/13/2015 FINDINGS: Interval left total knee arthroplasty, alignment appears anatomic. No periprosthetic fracture identified. Expected postoperative soft tissue and intra-articular gas, as well as overlying softtissue swelling. Expected postoperative changes status post interval left total knee arthroplasty. No periprosthetic fracture visualized. Transfusions: No Discharge Conditions/Prognosis: Stable, awake, and alert. Mobilizing as noted above, pain controlledon oral medications. Discharge to: Home With home health Updated Allergies/ADRs: Allergies Allergen Reactions ??? Morphine Other (See Comments) STATES THAT IT DOES NOT TAKE HIS PAIN AWAY Immunizations Given this Hospitalization: Immunization History Administered Date(s) Administered ??? Hep A/Hep B 07/11/2009, 08/11/2009, 02/14/2010 ??? Influenza PF, Split 03/07/2011 ??? Influenza Vaccine, Whole 05/21/2007, 03/04/2008 ??? Pneumococcal Polyvalent 23 02/11/2012 ??? Tdap Vaccine 02/11/2012 Discharge Medications: Your Medications New Medications Dose Details aspirin 81 mg Tbec Take 1 tablet by mouth 2 times daily for 29 days. Replaces: aspirin 325 mg Tab 81 mg Quantity: 58 tablet Refills: 0 diaZEPam 5 mg Tab Commonly known as: VALIUM Take 1 tablet by mouth every 12 hours as needed (muscle spasm) for up to 7 days. #14 for a 7 day supply. 5 mg Quantity: 14 tablet Refills: 0 oxyCODONE 20 mg Tab Commonly known as: ROXICODONE Take 0.5-1 tablets by mouth every 4 hours as needed for Pain. #42 for a 7 day supply. 10-20 mg Quantity: 42 tablet Refills: 0 polyethylene glycol 17 gram Pwpk Commonly known as: MIRALAX Take 17 g by mouth 2 times daily. Take to maintain normal bowel pattern while taking narcotic pain medication. 17 g Refills: 0 senna-docusate 8.6-50 mg Tab Commonly known as: PERICOLACE Take 2 tablets by mouth 2 times daily. Take to maintain normal bowel pattern while taking narcotic pain medication. 2 tablet Refills: 0 Continued medications with new dosing Dose Details acetaminophen 500 mg Tab Commonly known as: TYLENOL Take 1 tablet by mouth every 8 hours. What changed: - how much to take - when to take this - reasons to take this 500 mg Refills: 0 traMADol 50 mg Tab Commonly known as: ULTRAM Take 2 tablets by mouth every 6 hours. #56 for a 7 day supply. What changed: - when to take this - reasons to take this - additional instructions 100 mg Quantity: 56 tablet Refills: 0 Continued medications, unchanged Dose Details amLODIPine 5 mg Tab Commonly known as: NORVASC Take 1 tablet by mouth daily. 5 mg Quantity: 90 tablet Refills: 3 atenolol 50 mg Tab Commonly known as: TENORMIN Take 1 tablet by mouth 2 times daily. 50 mg Quantity: 90 tablet Refills: 3 buPROPion 300 mg Tablet sr Commonly known as: WELLBUTRIN XL take 1 tablet by mouth every morning Quantity: 30 tablet Refills: 5 DULERA 100-5 mcg/actuation Hfaa inhale 2 puffs by mouth twice a day Generic drug: Mometasone-Formoterol Refills: 0 furosemide 40 mg Tab Commonly known as: LASIX Take 1 tablet by mouth daily. 1 tablet Refills: 0 gabapentin 600 mg Tab Commonly known as: NEURONTIN Take 2 tablets by mouth 3 times daily. 2 tablet Refills: 0 hydrOXYzine 50 mg Tab Commonly known as: ATARAX take 1 tablet by mouth three times a day if needed Refills: 0 mirtazapine 15 mg Tab Commonly known as: REMERON take 1 tablet by mouth at bedtime Refills: 0 multivitamin Tab Commonly known as: THERAGRAN Take 1 tablet by mouth daily. 1 tablet Refills: 0 omeprazole 40 mg Cpdr Commonly known as: PriLOSEC Take 40 mg by mouth daily. 40 mg Refills: 0 potassium chloride 20 mEq Pack Commonly known as: KLOR-CON Take 20 mEq by mouth daily. 20 mEq Refills: 0 tamsulosin 0.4 mg Cp24 Commonly known as: FLOMAX Refills: 0 STOPPED Medications aspirin 325 mg Tab Replaced by: aspirin 81 mg Tbec ibuprofen 800 mg Tab Commonly known as: ADVIL;MOTRIN methadone 10 mg Tab Commonly known as: DOLOPHINE Smoking Status at Discharge: History Smoking Status ??? Former Smoker ??? Packs/day: 0.10 ??? Years: 42.00 ??? Types: Cigarettes ??? Quit date: 09/28/2015 Smokeless Tobacco ??? Former User Comment: STATES THAT HE STOPPED TWO MONTHS AGO 04/2015 Instructions Given to Patient at Discharge: There are no outpatient Patient Instructions on file for this admission. General Instructions Activity: 1. Your weight-bearing status is - weight bearing as tolerated of left leg. 2. Remember to use a walker or crutches at all times for balance and protection. Your physical therapist may progress you to using a cane when appropriate. 3. Flexion AND extension are important to work on at home. You should NOT place a pillow under your operative knee. To help with extension you can place a pillow under your heel or lower leg or placed lengthwise along the operative leg. Again DO NOT place a pillow under the operated knee for comfort. Anticoagulation: Aspirin - You are being discharged on enteric-coated Aspirin 81 mg by mouth twice aday. Continue this for 30 days. After your dose on 01/12/2016 stop the Aspirin, unless you are told otherwise by your Orthopedic surgeon. Take this medication with food or large amounts (240 mL) of wateror milk to minimize GI irritation. Diet: Resume your usual diet but increase your intake of fluids and fiber while you are on narcotic pain meds to prevent constipation. Driving: None until you are cleared to do so by your Orthopedic surgeon. You should not drive while you are on narcotic pain meds as they can affect your judgment and reaction time. Call your surgeon with any questions/concerns. Medications: 1. The pain medication you are on can cause constipation so increase your intake of fluids and fiberwhile you are on them. The stool softener, Pericolace, that has been prescribed can also be taken tofacilitate a bowel movement. You can also take an pjqf-lds-jphezap medication, Miralax if needed to combat constipation. 2. If you need a renewal on your narcotic pain medication, you need to discuss this with your Pain Management provider. You have an appointment on 12/20/15 with Jemima Lehman NP as discussed. 3. Continue acetaminophen (Tylenol) 500mg every 8 hours around the clock until 12/23/15 (for ten daysafter your surgery). This can be effective in controlling pain along with your other medications. After that you can take Tylenol as needed per package insert. Do not take more than 3,000mg of acetaminophen in a 24 hour period. 4. You have been discharged on a short acting narcotic, oxycodone, as needed for severe pain and tramadol, another short acting narcotic, to take scheduled as ordered. You will be on this medication for a limited period of time only. Taper off this medication as your pain improves. 5. You are being discharged on a proton pump inhibitor (Prilosec OTC). This will decrease stomach irritation that may be caused by NSAIDs. Take this daily for the next 6 weeks while you are on the NSAID. 6. You have been discharge on a medication to help with muscle spasms, diazepam (Valium). You will be on this medication for a limited period of time only. Take only as directed. Shower (internal sutures): 1. You can shower but remember your activity limitations and always have a chair available for balance and protection. DO NOT submerge the dressing/incision. 2. (Mepilex) Do not let water run over the operative dressing. If it becomes wet lightly pat the dressing dry. DO NOT submerge the incision. When this operative dressing is removed you can let water gently run over the incision. Wound (Mepilex): 1. You do NOT have any external nora or sutures in place. Your sutures are internal and will be absorbed over time. 2. You have a Mepilex dressing in place. Do not lift the edge of the Mepilex dressing to inspect theincision, it will not re-adhere. Remove your operative dressing 7 days after your surgery (12/19). When it is removed you can leave the incision open to air or cover it with a light dressing. 3. If you have lots of drainage when you get home (and it is before 12/19), remove the operative dressing and replace it with dry sterile gauze. Continue with daily dressing changes (and as needed) until the drainage stops, then remove the dressing and leave the incision open to air or lightly covered. Misc: Remember that ICE and elevation are very important after surgery to help decrease swelling andcontrol pain. Use ICE for 20-30 minutes at a time and keep your leg elevated as much as possible. FOLLOW-UP APPOINTMENTS: 1. You will have follow-up appointments at [facility] as indicated below in Future Appointment and Orders. 2. You will need to have x-rays prior to your follow-up appointment on 01/16/2016. Please come to Radiology, desk 3T, 1 hour BEFORE that appointment for those x-rays. Future Appointments Date Time Provider Department Center 12/20/2015 1:45 PM Renata Lehman APRN [facility] 01/16/2016 12:50 PM [facility] DX ROOM 1 Xray [facility] 01/16/2016 1:50 PM Davide Mallory MD [facility] 3C [facility] If you have questions or concerns: Friday through Friday, 8 AM - 5 PM, please call Davide Marlow MD's office at . If it is after 5 PM, the weekend, or holidays, please call and ask to speak with the Orthopedic resident on-call. Future Appointments and Orders Future Appointments Provider Department Dept Phone 12/20/2015 1:45 PM Rneata Lehman APRN Pain Management [phone] 01/16/2016 12:50 PM [facility] DX ROOM 1 [facility] Xray [phone] Please go to Hospital Admissions Clerk Area 3T ([place] Location). 01/16/2016 1:50 PM Davide Mallory MD Orthopaedics [phone] Future Orders Complete By Expires Referral to Home Health - at DISCHARGE [[id number] CPT(R)] As directed Process Instructions: Scheduling Instructions: Comments: DISCHARGE DOCUMENTATION FOR VNA SERVICES (INCLUDING PATIENTS WITH MEDICARE COVERAGE BEING DISCHARGED HOME WITH VNA SERVICES AND THOSE PATIENTS WITH MEDICARE COVERAGE WHO ARE BEING DISCHARGED HOME WITHHOSPICE SERVICES) PATIENT'S LOCATION: Mahin M Richard [address] [place] [phone] (home) Cell: No relevant phone numbers on file. Photographer Still's Name: self & In discussion with the attending physician, it is certified that this patient is under their care and that they, or a nurse practitioner, clinical nurse specialist or physician's assistant director of residence life who is working directly with them, had a face to face encounter that meets the physician face to face encounter re quirements with this patient on 12/14/2015 The encounter with the patient was in whole, or in part, for the following medical condition, which is the primary reason for home health care services: [ Left total knee arthroplasty ] In discussion with the primary medical team, it is certified that, based on their findings, the indicated services are medically necessary and appropriate for home health services. HOME HEALTH AGENCY: [facility] PHONE: [phone] FAX: [phone] Home care orders for Total Knee Replacements for PT: Intermediate(SN) eval if indicated on admission visit 1. No lab draws, pt is on ASA 2. Do not lift the edge of the mepilex dressing to observe the incision; this dressing needs to stayin place until 7 days after surgery. 3. SQ sutures, no removal needed 4. Continue PT rehab for balance, endurance, joint mobility, ROM, Strength, TKA protocol Please note that any additional orders needs or changes will need to be obtained from this patient'sPCP: AZALIA PEÑA APRN [facility] [address] [place], [place] [id number] All [facility] agencies which cover the area of patient's residence have been reviewed, either verbally or in writing, and patient/family have chosen the indicated home health care agency for home services. Questions: Agency name and contact information: [facility], [facility] [place], [place] Patient location post discharge: home What services are requested: Physical Therapy Start date: Responsible MD post discharge contact info: PCP Referral to Pain Clinic [[id number] Custom] As directed Process Instructions: If no progress note charted, please enter Clinical details in comments. Scheduling Instructions: Questions: My question or request is: Patient was seen in May by Dr. Lopez for perioperative pain management planning, had left TKA on 8/3, needs to re- establish care for pain management post-operatively Primary Care Provider: AZALIA PEÑA, PSYCHOLOGICAL ASSISTANT [phone] Discharge References/Attachments None documented in this encounter Discharge Instructions Discharge InstructionsCed Medina, LISA - 12/14/2015 2:59 PM EDT Activity: 1. Your weight-bearing status is - weight bearing as tolerated of left leg. 2. Remember to use a walker or crutches at all times for balance and protection. Your physical therapist may progress you to using a cane when appropriate. 3. Flexion AND extension are important to work on at home. You should NOT place a pillow under your operative knee. To help with extension you can place a pillow under your heel or lower leg or placed lengthwise along the operative leg. Again DO NOT place a pillow under the operated knee for comfort. Anticoagulation: Aspirin - You are being discharged on enteric-coated Aspirin 81 mg by mouth twice aday. Continue this for 30 days. After your dose on 01/12/2016 stop the Aspirin, unless you are told otherwise by your Orthopedic surgeon. Take this medication with food or large amounts (240 mL) of wateror milk to minimize GI irritation. Diet: Resume your usual diet but increase your intake of fluids and fiber while you are on narcotic pain meds to prevent constipation. Driving: None until you are cleared to do so by your Orthopedic surgeon. You should not drive while you are on narcotic pain meds as they can affect your judgment and reaction time. Call your surgeon with any questions/concerns. Medications: 1. The pain medication you are on can cause constipation so increase your intake of fluids and fiberwhile you are on them. The stool softener, Pericolace, that has been prescribed can also be taken tofacilitate a bowel movement. You can also take an kddj-pko-lbhvjsn medication, Miralax if needed to combat constipation. 2. If you need a renewal on your narcotic pain medication, you need to discuss this with your Pain Management provider. You have an appointment on 12/20/15 with Jemima Lehman NP as discussed. 3. Continue acetaminophen (Tylenol) 500mg every 8 hours around the clock until 12/23/15 (for ten daysafter your surgery). This can be effective in controlling pain along with your other medications. After that you can take Tylenol as needed per package insert. Do not take more than 3,000mg of acetaminophen in a 24 hour period. 4. You have been discharged on a short acting narcotic, oxycodone, as needed for severe pain and tramadol, another short acting narcotic, to take scheduled as ordered. You will be on this medication for a limited period of time only. Taper off this medication as your pain improves. 5. You are being discharged on a proton pump inhibitor (Prilosec OTC). This will decrease stomach irritation that may be caused by NSAIDs. Take this daily for the next 6 weeks while you are on the NSAID. 6. You have been discharge on a medication to help with muscle spasms, diazepam (Valium). You will be on this medication for a limited period of time only. Take only as directed. Shower (internal sutures): 1. You can shower but remember your activity limitations and always have a chair available for balance and protection. DO NOT submerge the dressing/incision. 2. (Mepilex) Do not let water run over the operative dressing. If it becomes wet lightly pat the dressing dry. DO NOT submerge the incision. When this operative dressing is removed you can let water gently run over the incision. Wound (Mepilex): 1. You do NOT have any external nora or sutures in place. Your sutures are internal and will be absorbed over time. 2. You have a Mepilex dressing in place. Do not lift the edge of the Mepilex dressing to inspect theincision, it will not re-adhere. Remove your operative dressing 7 days after your surgery (12/19). When it is removed you can leave the incision open to air or cover it with a light dressing. 3. If you have lots of drainage when you get home (and it is before 12/19), remove the operative dressing and replace it with dry sterile gauze. Continue with daily dressing changes (and as needed) until the drainage stops, then remove the dressing and leave the incision open to air or lightly covered. Misc: Remember that ICE and elevation are very important after surgery to help decrease swelling andcontrol pain. Use ICE for 20-30 minutes at a time and keep your leg elevated as much as possible. FOLLOW-UP APPOINTMENTS: 1. You will have follow-up appointments at [facility] as indicated below in Future Appointment and Orders. 2. You will need to have x-rays prior to your follow-up appointment on 01/16/2016. Please come to Radiology, desk 3T, 1 hour BEFORE that appointment for those x-rays. Future Appointments Date Time Provider Department Center 12/20/2015 1:45 PM Renata Lehman APRN [facility] 01/16/2016 12:50 PM [facility] DX ROOM 1 Xray [facility] 01/16/2016 1:50 PM Davide Mallory MD [facility] If you have questions or concerns: Friday through Friday, 8 AM - 5 PM, please call Davide Marlow MD's office at . If it is after 5 PM, the weekend, or holidays, please call and ask to speak with the Orthopedic resident on-call. documented in this encounter Medications at Time of Discharge Medication Sig Dispensed Refills Start Date End Date multivitamin (THERAGRAN) Take 1 tablet by 0 08/21 tablet mouth daily. aspirin 81 mg Tablet, Take 1 tablet by 58 tablet 0 12/14/19 16 01/12/2016 Delayed Release (E.C.) mouth 2 times daily for 29 days. acetaminophen (TYLENOL) Take 1 tablet by 0 201503/01/2020 500 mg Tablet mouth every 8 hours. diaZEPam (VALIUM) 5 mg Take 1 tablet by 14 tablet 0 016 12/20/2015 Tablet mouth every 12 hours as needed (muscle spasm) for up to 7 days. #14 for a 7 day supply. oxyCODONE (ROXICODONE) 20 Take 0.5-1 tablets 42 tablet 0 12/20/2015 mg Tablet by mouth every 4 hours as needed for Pain. #42 for a 7 day supply. senna-docusate Take 2 tablets by 0 12/14/201510/2015 (PERICOLACE) 8.6-50 mg mouth 2 times daily. Tablet Take to maintain normal bowel pattern while taking narcotic pain medication. polyethylene glycol Take 17 g by mouth 2 0 201501/16/2016 (MIRALAX) 17 gram Powder times daily. Take to in Packet maintain normal bowel pattern while taking narcotic pain medication. traMADol (ULTRAM) 50 mg Take 2 tablets by 56 tablet 0 12/1309/08/2017 Tablet mouth every 6 hours. #56 for a 7 day supply. mirtazapine (REMERON) 15 take 1 tablet by 0 11/0201/16/2016 mg Tablet mouth at bedtime DULERA 100-5 inhale 2 puffs by 0 11/07/201511/19 mcg/actuation HFA Aerosol mouth prn Inhaler tamsulosin (FLOMAX) 0.4 Reported on 0 10/05/2015 08/20/2016 mg Capsule, Sust. Release 07/08/2016 24 hr hydrOXYzine (ATARAX) 50 Reported on 0 10/06/2015 08/28/2016 mg Tablet 07/08/2016 furosemide (LASIX) 40 mg Take 1 tablet [...] daily. Reported on Release(E.C.) 07/08/2016 buPROPion (WELLBUTRIN XL) take 1 tablet by 30 tablet 5 09/1008/20/2016 300 mg 24 hr tablet mouth every morning atenolol (TENORMIN) 50 mg Take 1 tablet by 90 tablet 3 07/1008/28/2016 tablet mouth 2 times daily. amlodipine (NORVASC) 5 mg Take 1 tablet by 90 tablet 3 04/1108/20/2016 tablet mouth daily. documented as of this encounter Progress Notes Geovanna Hightower RN - 12/14/2015 5:41 PM EDT Patient discharged from unit to home VNA services. IV discontinued, tip intact, dressing applied, pressure held. Discharge care instructions provided and explained. Patient verbalized understanding. Prescriptions were provided and patient left unit with all belongings. Report called to Estrella at [facility]. Jasmyne Peres RN - 12/14/2015 3:01 PM EDT Office of Care Management (OCM) / Problem Manager(CM)/ Initial Assessment Discussed patient with Provider Team and in multidisciplinary discharge-planning rounds. Reviewed record and interviewed patient. Introduced/reviewed CM role and services accepted. REASON for HOSPITALIZATION: S/P total knee arthroplasty Past Medical History Diagnosis Date ??? Depression ??? GERD (gastroesophageal reflux disease) ??? Hepatitis C ??? HTN (hypertension) Past Surgical History Procedure Laterality Date ??? Revision total hip arthroplasty bilateral for hip AVN ??? Spine surgery ??? Pro upper gi endoscopy, diagnostic Bilateral 08/17/2015 EGD, UPPER GI ENDOSCOPY performed by Trev Hong MD at [facility] ENDOSCOPY ??? Pro total knee arthroplasty Left 12/13/2015 @TOTAL KNEE ARTHROPLASTY performed by Davide Mallory MD at [facility] MAIN OR ??? Left 12/13/2015 MODIFIER TC3 FIXED MODULAR DEPUY performed by Davide Mallory MD at [facility] MA[facility] OR ??? Left 12/13/2015 MODIFIER TC3 ROTATING PLATFORM DEPUY performed by Davide Mallory MD at [facility] MAIN OR PREVIOUS FUNCTIONAL STATUS: physically & cognitively independent CURRENT FUNCTIONAL STATUS: Standby assist/walker SOCIAL / FAMILY SUPPORTS: Patient lives with his , Consuelo Cordero, & his son & daughter, in single family home. Patient lives on one level, handicapped accessible. He states he is always in pain due to his joint health issue. Wishes he could have a better quality of life and be able to do more with his of 42 years. ADVANCE DIRECTIVES: None on file in [facility] HEALTH /PRESCRIPTION COVERAGE: [place], Medicare A CURRENT HOME/COMMUNITY SERVICES/EQUIPMENT: none PLATE PRINTER REFERRAL: not needed at this time or Notified for: PRIMARY CARE PHYSICIAN: AZALIA PEÑA, PSYCHOLOGICAL ASSISTANT ZEINAB [address] [facility] [id number] POTENTIAL DISCHARGE NEEDS: Patient will need VNA services for physical therapy at discharge. [facility] PHONE: [phone] FAX: [phone] ANTICIPATED BARRIERS TO DISCHARGE: none anticipated at this time TRANSPORTATION @ D/C: Private vehicle transport to home with his /son PLAN: CM will continue to monitor progress, follow for continuity of care and assist with discharge planning while hospitalized CM Jasmyne Peres RN, BS, pager [phone] Kel Hair MD - 12/14/2015 9:39 AM EDT Orthopaedic Surgery Daily Progress Note 60 y.o. male admitted 12/13/2015 for the surgery below: Surgery: Left Total Knee Arthroplasty Subjective: The patient is doing well. Pain is under reasonable control. Denies chest pain, shortness of breath, nausea and vomiting. No new neurologic symptoms down LLE Objective: Temp: [36.4 ??C (97.5 ??F)-37.5 ??C (99.5 ??F)] Heart Rate: [52-95] Resp: [8-21] BP: (126-177)/(55-107) SpO2: [92 %-97 %] I/O last 3 completed shifts: In: 3070 [P.O.:940; I.V.:2130] Out: 1375 [Urine:1275; Blood:100] Physical Exam: General: Well appearing, no acute distress LLE Exam: 2+ DP/PT pulses, brisk capillary refill distally Sensation intact to light touch to DP/SP/T/Lateral Femoral Cutaneous nerve distributions Motor intact to ADF/APF/EHL Dressing c/d/i - straight leg raise Laboratory Recent Labs 12/14/15 0322 WBC 13.4* HGB 12.6* HCT 38.0* PLATELET 267 NA 136 K 4.0 CL 96* CO2 26 BUN 11 CREATININE 1.11 Imaging: Expected postoperative changes status post interval left total knee arthroplasty. No periprosthetic fracture visualized. ?? Assessment: 60M s/p L TKA. Patient with a pmh of hep C, IV drug abuse. ??Overall progressing well. Straight cathed overnight, will continue to follow. Appreciate APS help w/ pain regimen WBAT LLE Mepilex in place until POD7 Subcutaneous closure ASA 81mg BID for A/C PT consult Dispo pending clearance. ?? Kel Hair MD Orthopaedic Surgery, PGY 4 Pager [phone] 12/14/2015 Sparkle Gu RN - 12/13/2015 9:20 PM EDT Patient arrived to the floor at 2110. Vital signs obtained, assessment completed, masimo placed. Patient oriented to the room, explained call miller. Patient came to the floor with pain rating 10/10 IV one time IV dilaudid ordered. Comfort and safety measures maintained, call miller within reach, bed alarm on. 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 S/P L TKA 12/13/15 Dr. Mallory 12/13/2015 ??? Avascular necrosis of bone 11/04/2015 ??? Cirrhosis 08/09/2015 ??? Ankle fracture, left 06/13/2015 ??? Polysubstance abuse 05/26/2015 ??? Avascular necrosis bilateral knees 04/11/2015 ??? Confusion 08/19/2012 ??? Community acquired pneumonia 08/19/2012 ??? Imbalance 08/19/2012 ??? Hepatitis C 09/06/2011 ??? Alcohol dependence 03/11/2008 ??? Anixety D/O NOS 03/11/2008 ??? ADHD NOS 03/11/2008 ??? Chronic back pain 03/11/2008 ??? Major depressive disorder, single episode, unspecified 03/11/2008 S/Events: Denies CP, SOB, nausea, vomiting, numbness/weakness. Pain well controlled. O: Vitals: Temp: [37 ??C (98.6 ??F)] Heart Rate: [52-95] Resp: [10-21] BP: (126-152)/(55-107) SpO2: [94 %-97 %] I/O this shift: In: 1300 [I.V.:1300] Out: 100 [Blood:100] Exam: General: NAD, awake/alert CV: RRR Resp: Breathing comfortably, lungs CTAB LLE: Dressing c/d/i. Motor intact to EHL, FHL, TA. Sensation intact in foot/calf. Brisk capillary refill distally. Labs: No results for input(s): WBC, HGB, HCT, PLATELET, NA, K, CL, CO2, BUN, CREATININE in the last 72 hours. A/P: 60 y.o. year old male POD#0 s/p left TKA, progressing well with stable vitals and uop. - Orders reviewed - continue all post-operative care documented in this encounter H&P Notes Kel Hair MD - 12/13/2015 1:38 PM EDT The patient's history and physical exam have been reviewed and completed. There has been no intervalchange from that of the pre-operative history and physical exam done within the last 30 days. documented in this encounter Miscellaneous Notes Initial Assessments - Whitley Adkins, OT - 12/14/2015 2:42 PM EDT Occupational Therapy Evaluation Patient profile: Mahin Ramos is a 60 y.o. male patient of Davide Marlow MD, admitted on 12/13/2015 S/p L TKA. OT consult received Past Medical History Diagnosis Date ??? Depression ??? GERD (gastroesophageal reflux disease) ??? Hepatitis C ??? HTN (hypertension) Past Surgical History Procedure Laterality Date ??? Revision total hip arthroplasty bilateral for hip AVN ??? Spine surgery ??? Pro upper gi endoscopy, diagnostic Bilateral 08/17/2015 EGD, UPPER GI ENDOSCOPY performed by Trev Hong MD at [facility] END[facility]COPY ??? Pro total knee arthroplasty Left 12/13/2015 @TOTAL KNEE ARTHROPLASTY performed by Davide Mallory MD at [facility] OR ??? Left 12/13/2015 MODIFIER TC3 FIXED MODULAR DEPUY performed by Davide Mallory MD at [facility] OR ??? Left 12/13/2015 MODIFIER TC3 ROTATING PLATFORM DEPUY performed by Davide Mallory MD at [facility] OR Social History: Patient lives with spouse in split level house7 steps up to bedroom. 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 Depression. Pt's activity goal is to be able to walk outdoors without pain DME: 2 walkers, raised toilet, grab bars, ADL aids, shower seat with hand held shower. Baseline ADL/Mobility: Independent with ADL???s and IADL???s Precautions/Special Considerations: WBAT, Subjective: I have been in pain for so long Objective: Seen today for OT evaluation. Cognitive Status/Behavior: alert, oriented to person, place, and time , pleasant, cooperative Vision & Perception: Not assessed, WFL? s Range of motion, strength, coordination: Hand dominance: right R UE is within functional limitations L shoulder AROM limited to ~ 85 degrees Sensation: deneis numbness/tingling in hands, but reports numbness in toes Activities of Daily Living: Self-feeding: N/A-Independent with set up Hygiene grooming: set up Upper and lower body dressing and bathing: ?? Has adaptive aids at home, either uses them or his assists as needed ?? Shower seat, reviewed safe showering routines Toileting: Toilet Transfer: supervision Toilet Hygiene: indep Functional Mobility: Supine to sit: supervision Sit to stand: supervision Ambulation: ~ 18' with FWW with supervision Stand to sit: indep Sit to supine: indep Balance: good. IADL???s: Assistance available to patient. Endurance: Information taken from last recorded vitals in flowsheet. Last value Range last 8 hrs Heart Rate Heart Rate: 86 Heart Rate: [86-95] Blood Pressure BP: 163/80 BP: (130-163)/(70-99) SpO2 SpO2: 92 % SpO2: [92 %-97 %] RA Pain: reports knee pain, ice helpful. Skin: No problems noted Informed Consent: The patient agrees to and understands the OT treatment plan and goals. Education: patient have been educated on Assistive device/technique, ADL, Safety, Functional Mobility, Activity pacing/Energy conservation, Recommendations and Discharge planning and verbalizes understanding. Patient status, treatment, and mobility recommendations discussed with nursing. Assessment: Pt has been seen by OT for evaluation, and he demonstrates the ability to perform basic ADL???s with set up and supervision. Anticipate that pt will return home with assistance. Do not anticipate further OT needs. Recommendations: Equipment needs at discharge: Patient has all necessary equipment Discharge Recommendations: Based on the current findings noted during this evaluation, patient couldbenefit from Home without further Skilled Therapy when medically ready for hospital discharge. This recommendation is based on the patient's Current physical impairments, Prior functional status,Reported home support and Reported home environment and may change based on patient progress during this hospitalization. Goals: MET 1. Pt will demonstrate independent with precautions/restrictions during ADLs. 2. Pt will perform standing ADLs with supervision only. 3. Pt will dress self independently using adaptive technique/equipment as needed. 4. Pt will ambulate independently with assistive device as needed for ADLs. 5. Pt will demonstrate shower transfers with supervision and safe technique. Plan: DC from OT . Eval Date: 12/14/2015 Total time spent with patient: 30 minutes initial eval Total timed interventions: 0 minutes Pager: [phone] WHITLEY ADKINS OT 12/14/2015 Occupational Therapy Rehabilitation Department Initial Assessments - HenoklianeDenise, PT - 12/14/2015 8:43 AM EDT Physical Therapy Evaluation Total Knee Arthroplasty Patient Profile: Pt. is a 60 y.o. male admitted on 12/13/2015 by Davide Marlow MD for R TKA. PMH: Past Medical History Diagnosis Date ??? Depression ??? GERD (gastroesophageal reflux disease) ??? Hepatitis C ??? HTN (hypertension) PSH: Past Surgical History Procedure Laterality Date ??? Revision total hip arthroplasty bilateral for hip AVN ??? Spine surgery ??? Pro upper gi endoscopy, diagnostic Bilateral 08/17/2015 EGD, UPPER GI ENDOSCOPY performed by Trev Hong MD at [facility] Social History: Patient lives with his and family in a split level home with 2 ZEINAB and 7 steps to the main floor (unilateral railing now but family is installing another). Prior to admission pt ambulated community distances independently without a device but was limited by pain. Pt is retired andcan drive but has not done so recently. DME: RW and shower chair Precautions/Special Considerations: Fall risk, skin breakdown risk, s/p R TKA, R LE WBAT Post-operative course: Uneventful Subjective: Patient states that he has been having to get up to use the bathroom frequently. Objective: Pt seen for initial evaluation. Cognitive Status: alert and oriented Vitals: SpO2: 99%%, HR 84bpm Most recent Hgb value: 12.6 Pain: it's calming down, L knee Strength: WFL at hips, ankles and R knee. Knee extension 3-/5 at L knee Functional Mobility: Supine->sit: independent Sit->supine: independent Sit->stand: independent with RW Stand->sit: independent with RW Gait: Ambulated ~100ft room to stairwell and back using RW with supervision progressing to independence. Verbal cues initially required to increase step length and weight bearing through L LE, good carryovernoted. Pt declined to ambulate further secondary to ankle discomfort (pt reports that he will need an kle surgeries in the future) Gait pattern: Antalgic gait with reciprocal pattern but decreased L step length. Steady with RW Elevations: pt ascended and descended 7 6 stairs in stairwell with B railings and supervision usingstep-to pattern. Toileting and ADLs: pt performed toileting tasks x2 during session independently and brushed his teeth independently Today???s Treatment: 1. Evaluation 2. Verbalized and demonstrated good understanding of ankle pumps, quad sets, short arc quads, seatedheel slides, and long arc quads. Pt in possession of handout illustrating the exercises and was instructed to perform them x10 reps as able 3x per day. Informed Consent: The patient understands and agrees to the PT treatment plan and goals. Education: patient educated on Bed mobility, Transfers, Assistive device/technique, Stairs, Positioning, Safety, Precautions/protocol, Gait , Role of therapy and Discharge planning and verbalizes and demonstrates understanding. Patient status, treatment, and mobility recommendations discussed with nursing staff. Assessment: Pt is POD#1 s/p L TKA. Pt presents with pain, decreased A/PROM, and decreased strength. These impairments limit his ability to perform functional mobility tasks including ambulation and elevations. Pt will benefit from follow up PT to address his/her functional deficits to restore prior level of function. Range of Motion: AROM L knee extension = lack 9 degrees, flexion = 86 degrees Goals: (to be achieved by 12/15/15) Goal met? Yes No Pt will be knowledgeable of prescribed exercises. X Pt will demonstrate AROM knee extension 0-15 degrees and flexion 80-90 degrees X Pt will move supine<>sit independently. X Pt will move sit<>stand independently with RW. X Pt will ambulate 100 feet using RW independently. X Pt will negotiate 7 steps with supervision using B railings. X Discharge Recommendations: Patient will benefit from discharge home with follow up home therapy services and family assistance as needed. Physical Therapist recommends: No other consults recommended at this time Plan: All goals met at this time, pt is cleared by physical therapy. Patient agrees to the plan as stated. Equipment needs: Patient has all necessary equipment. Activity plan w/nursing assist (discussed with nursing staff): ?? Ambulate frequently in lehman using RW at independent level. Time in/out: 9527-6128 Total treatment time: 42 minutes Total timed treatment: 10 minutes (YEE) Denise Ritter, PT Pager: [phone] 12/14/15 Physical Therapy Rehabilitation Department Plan of Care - Sparkle Gu RN - 12/14/2015 6:10 AM EDT Problem: Skin Integrity Impairment, Risk/Actual (Adult, Obstetrics) Goal: Identify Signs and Symptoms and Related Risk Factors Signs and symptoms and related risk factors are identified upon initiation of Human Response Clinical Practice Guideline (CPG) Outcome: Ongoing (Interventions Implemented as Appropriate) OUTCOME EVALUATION NOTE: OUTCOME SUMMARY: Patient received. A&O throughout shift. Patient has been struggling with pain all night. One time orders of dilaudid obtained, PRN oxycodone, and tramadol given. Scheduled toradol given and patientstill is rating pain on the high end. 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 Patient ambulated to the bathroom. Comfort and safety measures maintained call miller with reach, bed alarm on. PLAN MOVING FORWARD: Continue to monitor all order parameters, manage pain, encourage ambulation, bladder scan as ordered INDIVIDUALIZED FALL PREVENTION INTERVENTIONS: Patient is currently a high falls risk Patient-specific fall risk factors per assessment: [current deficits]: Patient risk factors include:total left knee replacement, recent left ankle fracture. Bilateral numbness of the feet. Polypharmacy. History of drug use and ETOH, patient is taking methadone at home. Assistance [level of assistance required for transfers and ambulation]: 1 assist with walker Supervision [direct monitoring required during toileting and ADLs]: Eyes on Surveillance [continuous indirect monitoring]: NKE at bedside, Q2 hourly rounding, bed alarm Patient-specific fall prevention interventions for sensory deficits provided, if applicable: Yes, Bed/Chair alarm, environmental modification (floor free of clutter, tubing secured), bed in low position, lighting adjusted for task/safety, nonskid slippers when out of bed, wheels locked, call light in r each, upper side-rails raised X2, ID bands on. CPG GOAL OUTCOME EVALUATION: Goal: Skin Integrity/Wound Healing Patient will demonstrate the desired outcomes. Outcome: Ongoing (Interventions Implemented as Appropriate) 12/14/15 0601 Skin Integrity Impairment, Risk/Actual (Adult, Obstetrics) Skin Integrity/Wound Healing making progress toward outcome Problem: General Plan of Care Goal: Plan of Care Review Outcome: Ongoing (Interventions Implemented as Appropriate) 12/13/152110 Coping/Psychosocial Response Interventions Plan of Care Reviewed with patient Goal: Fall Prevention-Safe Patient Handling Outcome: Ongoing (Interventions Implemented as Appropriate) 12/13/15211012/13/152199 [place] Fall Risk History of Falling 0 -- Secondary Diagnosis 15 -- Ambulatory Aids 15 -- Intravenous Therapy/Heparin/Saline Lock 20 -- Gait/Transferring 10 -- Mental Status 0 -- Score 60 -- Activity and Safety Assistive Device -- Front wheel walker OTHER [place] Fall Risk High -- Safety Interventions Safety Precautions/Fall Reduction bed alarm;chair alarm;environmental modification;fall reduction program maintained;lighting adjusted for task/safety;low bed;nonskid shoes/slippers when out of bed -- Musculoskeletal Interventions Activity/Level of Assistance -- up in room;ambulated;with walker;with 1-person assist Positioning independent -- Goal: Infection Control Outcome: Ongoing (Interventions Implemented as Appropriate) 12/13/152110 Safety Interventions Isolation Precautions standard precautions maintained Infection Prevention bronchial hygiene promoted;environmental surveillance;hydration promoted;nutrition promoted;promote handwashing;rest/sleep promoted Coping/Psychosocial Response Interventions Counseling calming techniques promoted;emotional support provided;goal setting facilitated Op Note - Kel Hair MD - 12/13/2015 5:39 PM EDT Patient Name: Mahin Ramos : [id number] MR#: [id number] ?? Case Date: 12/13/2015 ?? Surgeon: Surgeon(s) and Role: * Davide Mallory MD - Primary * Kel Hair MD - Resident-Surgeon Chato ?? Preoperative diagnosis: LEFT knee AVN ?? Postoperative diagnosis: LEFT knee AVN ?? Procedure(s): @TOTAL KNEE ARTHROPLASTY MODIFIER TC3 FIXED MODULAR DEPUY MODIFIER TC3 ROTATING PLATFORM DEPUY ?? Anesthesia: Spinal ?? Findings: marked AVN of femur and tibia ?? Complications: none ? Fluids: 1200ml ?? Estimated Blood Loss: 100 mL ?? Drains: none ?? Disposition: awakened from anesthesia, extubated and taken to the recovery room in a stable condition, having suffered no apparent untoward event. ?? Condition: doing well without problems ?? Infection Bundle used? N/A ?? Weight bearing status of operative extremity: Weight bearing as tolerated ?? Wound closure: Resorbable sutures ?? Dressing changes: Mepilex Silver (Do not remove for 7 days. Dry Dressings PRN after that) ?? Follow-up Plan: One month with X-rays ?? Anticoagulation: Aspirin 325 mg twice daily x 6 weeks ?? Any possible barriers to discharge: None ?? Plan for hospital stay: Standard ?? Anticipated Length of Stay: 1-3 days. ?? Indications for the Procedure: The patient has been followed in the out-patient clinic with a history of progressively worsening left knee pain. After having failed conservative, non- surgical attempts at managing the pain and limitations of functional capabilities, it was felt that the only remaining option was surgical. A detailedconversation regarding the risks and benefits of knee arthroplasty surgery was had with the patient.The risks discussed included but were not limited to: infection, bleeding (that may or may not require transfusion), injury to neurologic or vascular structures (that may or may not permanent), fracture, instability, leg-length inequality, premature loosening or failure/wear of the implants, blood clots, medical complications, anaesthesia- related complications (both intra and postoperative), and . Subsequent to this conversation, all of the patient???s questions were answered in great detail and informed consent was subsequently obtained for a left total knee arthroplasty. He received preoperative clearance by his PCP, AZALIA PEÑA APRN. Today, he identified the left knee as the correct operative side. Implant Name Type Inv. Item Serial No. Appliance Repairer Lot No. LRB No. Used Action CEMENT,BNE,SMARTSET,HV,EO,40G ([id number]) - [id number] IMPLANTS CEMENT,BNE,SMARTSET,HV,EO,40G ([id number]) [employer] - [id number] Left 2 Implanted STEM,UNIV,FLUT,[id number] ([id number]) (AUTOREQ) - [id number] IMPLANTS STEM,UNIV,FLUT,[id number] ([id number]) (AUTOREQ) [employer] - 3527 [id number] Left 1 Implanted BOLT,FMRL,SIGMA,NTRL,ADAP ([id number]) (AUTOREQ) - [id number] IMPLANTS BOLT,FMRL,SIGMA,NTRL,ADAP ([id number]) (AUTOREQ) [employer] - [facility]7 [id number] Left 1 Implanted COMPO,PFC,SGM,FEM,TC3,LT,SZ3 ([id number]) (AUTOREQ) - [id number] IMPLANTS COMPO,PFC,SGM,FEM,TC3,LT,SZ3 ([id number]) (AUTOREQ) [employer] - [facility] [id number] Left 1 Implanted LOPEZ,PFC,SGM,OVL,3PG,STD,38MM ([id number]) (AUTOREQ) - [id number] IMPLANTS LOPEZ,PFC,SGM,OVL,3PG,STD,38MM ([id number]) (AUTOREQ) [employer] - [facility] [id number] Left 1 Implanted TRAY,TIB,PFC,OFST,LM-RL,SZ3 ([id number]) (AUTOREQ) - [id number] IMPLANTS TRAY,TIB,PFC,OFST,LM-RL,SZ3 ([id number]) (AUTOREQ) [employer] - [facility] [id number] Left 1 Implanted ADAPTER,FMRL,PFC,SIGMA,5 DEG ([id number]) (AUTOREQ) - [id number] IMPLANTS ADAPTER,FMRL,PFC,SIGMA,5 DEG ([id number]) (AUTOREQ) [employer] - [facility] [id number] Left 1 Implanted STEM,UNIV,FLUT,[id number] ([id number]) (AUTOREQ) - [id number] IMPLANTS STEM,UNIV,FLUT,[id number] ([id number]) (AUTOREQ) [employer] - [facility] [id number] Left 1 Implanted INSER,PFC,SGM,TC3,TIB,SZ3,12.5 ([id number]) (AUTOREQ) - [id number] IMPLANTS INSER,PFC,SGM,TC3,TIB,SZ3,12.5 ([id number]) (AUTOREQ) [employer] - 3527 [id number] Left 1 Implanted Details of the Procedure: The patient was correctly identified in the same day holding area and proper operative site and consent were confirmed by the team. The patient was wheeled back to the operating room and placed in the supine position on the operating table where general anesthesia was administered. All bony prominences were well padded. Preoperative antibiotics were given. A time-out was done to confirm patient, surgery, and site according to the [facility] [place] Protocol. A nonsterile tourniquet was placed high around the upper thigh. The lower extremity was then prepped and draped in the usual sterile fashion. The knee was marked and an Ioban dressing was then placed over the leg. The leg was exsanguinated and thetourniquet inflated to 250 mmHg where it remained for a total of 149 minutes. A midline incision was made. A medial full thickness skin flap was developed. Using a subvastus parapatellar arthrotomy, the knee joint was entered. Synovium over the lateral condyle were excised. A subperiosteal peal was carried around the medial tibial plateau. Portion of the infrapatellar fat pad was excised. A lateral release was performed to allow for adequate mobilization of the patella. The knee was then flexed. Attention was first directed to the femur. A step drill was used to enter the intramedullary canal. The intramedullary femoral guide was then placed and the distal femoral cutting guide pinned into theappropriate position set for a 5 degree 9mm cut. The distal cut was made and the cutting guide then removed. The intramedullary reamer was inserted into the femoral canal opening and increase sequentially by 1mm up to size 18. This was left in place and the femoral sizing guide was then used to determine the appropriate femoral size. The distal pins were placed with care to ensure appropriate external rotation. The size 3 4-in-one cutting guide was then placed and the anterior, posterior and champfer cuts were made. The dye box operator was then placed over the intramedually reamer and used to guide the cuts for the PS box. Attention was then directed to the tibia. The intramedullary reamer was inserted into the proximal tibial and into the tibal canal. Again we sequentually reamed to 16mm. Once a good fixation was obtained the proximal tibial resection guide was placed over the intramedullary reamer and pinned to the appropriate position to cut approximately 8mm from the less effected side . The tibial cut was then made. The size 3 tibial trial was then placed and the keel punch was used to prepare the tibia. The tibial trial and the 12.5mm poly trial were placed along with the femoral trial. The knee was brought through a range of motion and found to be stable to varus and valgus stress in full extension, 30 degrees of flexion and 90 degrees of flexion. Attention was then directed to the patella. The patella width was measured to be 25mm and the cutting guide was set to resect approximately 8.5mm of bone. The patella was then cut and the size 38mm patellar guide was used to drill the appropriate holes for the patellar button. All trial components were removed. The knee was copiously irrigated with normal saline using the pulse fourdrinier wire weaver. Cement mixing was begun on the back table. The implants were then cemented into appropriate position and the definitive size size 3x12.5mm polyethylene insert was placed. The knee was thenbrought into extension. After the cement had cured, the patella was reduced and the knee was broughtthrough range of motion and found to be stable. The arthrotomy was closed with a stratafix suture and reinforced with 0 Vicryl. The wound was irrigated prior to final closure. The tourniquet was released and adequate hemostasis was achieved. The subcutaneous tissues were reapproximated with 2-0 Vicryl and the skin was closed with 3-0 monocryl in a running subcuticular fashion. The wounds were cleansed and dried and dermabond and then a mepilex dressing was applied. A uiu-um-ekhsd Donald bandage was applied. A Cryo/Cuff and Venodyne were applied. Thepatient awoke from general anesthesia and was transferred back to the hospital bed, and taken back to PACU in stable condition. All sponge and needle counts were correct at the end of the case. There were no obvious intraoperative complications. Dr. Mallory was present for all critical portions of the procedure. Associated attestation - Davide Mallory MD - 12/15/2015 9:16 AM EDT Of note, there was extensive AVN in both the distal femur and proximal tibia. We also performed coredrilling of these defects where possible. Attestation: Case Date: 12/13/2015 I was present and I participated during the entire procedure (does not need to include opening and closing). DAVIDE MALLORY MD 12/15/2015 Brief Op Note - Davide Mallory MD - 12/13/2015 4:08 PM EDT Brief Operative Note Patient Name: Mahin Ramos : [id number] MR#: [id number] Case Date: 12/13/2015 Surgeon: Surgeon(s) and Role: * Davide Mallory MD - Primary * Kel Hair MD - Resident-Surgeon Chato Preoperative diagnosis: LEFT knee AVN Postoperative diagnosis: LEFT knee AVN Procedure(s): @TOTAL KNEE ARTHROPLASTY MODIFIER TC3 FIXED MODULAR DEPUY MODIFIER TC3 ROTATING PLATFORM DEPUY Anesthesia: Spinal Findings: marked AVN of femur and tibia Complications: none Fluids: 1200ml Estimated Blood Loss: 100 mL Drains: none Disposition: awakened from anesthesia, extubated and taken to the recovery room in a stable condition, having suffered no apparent untoward event. Condition: doing well without problems Infection Bundle used? N/A Weight bearing status of operative extremity: Weight bearing as tolerated Wound closure: Resorbable sutures Dressing changes: Mepilex Silver (Do not remove for 7 days. Dry Dressings PRN after that) Follow-up Plan: One month with X-rays Anticoagulation: Aspirin 325 mg twice daily x 6 weeks Any possible barriers to discharge: None Plan for hospital stay: Standard Anticipated Length of Stay: 1-3 days. Attestation: Case Date: 12/13/2015 I was present and I participated during the entire procedure (does not need to include opening and closing). (Please see the Surgical Encounter Summary for any Implant and Specimen details pertinent to this patient.) documented in this encounter Plan of Treatment Upcoming Encounters Date Type Specialty Care Team Description 12/11/2021 Appointment Radiology 12/11/2021 Office Visit Orthopaedics Marion Tavera APRN [facility] ORTHOPAEDIC SURG [place], [place] [address] (Wo rk) 01/15/2022 Appointment Radiology Stiven Cervantes MD [facility] Pul[facility] Medici [place], [place] [address] (Wo rk) Scheduled Procedures Name Priority Associated Diagnoses Date/Time DEBRIDEMENT SKIN, SUBCU, MUSCLE, R great toe amp utation, wound LOWER EXTREMITY (WRVU 2.7) closure MODIFIER WOUND VAC R great toe amputation, wound closure Scheduled Referrals Name Type Priority Associated Diagnoses Order S chedule Referral to Pain Outpatient Referral Routine Status post total Ordered: Clinic left knee replac ement 12/14/2015 Chronic back pain, unspecified back pain laterality, unspecified loca tion Polysubstance abuse documented as of this encounter Procedures Procedure Name Priority Date/Time Associated Comments Diagnosis IMPLANTABLE DEVICES 12/15/2015 12:00 SCAN AM EDT ECG SCAN 12/15/2015 12:00 AM EDT HEMOGRAM Routine 12/14/2015 3:22 AM Results f or this EDT procedure are i n the results section. DIFFERENTIAL, Routine 12/14/2015 3:22 AM Results for this AUTOMATED EDT procedure are i n the results section. CBC (WITH DIFF) Routine 12/14/2015 3:22 AM EDT BASIC METABOLIC PANEL Routine 12/14/2015 3:22 AM Results for this (NON-FASTING) EDT procedure are in the results section. XR KNEE DIAGNOSTIC 1 Routine 12/13/2015 5:51 PM R esults for this OR 2 VIEW LEFT EDT procedure are in the results section. MODIFIER TC3 ROTATING Yes 12/13/2015 1:52 PM Avascul ar necrosis PLATFORM DEPUY EDT Bilateral chronic knee pain MODIFIER TC3 FIXED Yes 12/13/2015 1:52 PM Avascular necrosis MODULAR DEPUY EDT Bilateral chronic knee pain TOTAL KNEE Yes 12/13/2015 1:52 PM Avascular nec rosis ARTHROPLASTY (WRVU EDT Bilateral chronic 20.72) knee pain documented in this encounter Results SCAN DOC: IMPLANTABLE DEVICES (12/15/2015 12:00 AM EDT) Narrative This result has an attachment that is no t available. Scanning Provider MEDIA MGR SCAN EXT ORDR/RSLT SCAN DOC: ECG (12/15/2015 12:00 AM EDT) Narrative This result has an attachment that is no t available. Scanning Provider MEDIA MGR SCAN EXT ORDR/RSLT (ABNORMAL) Differential, Automated (12/14/2015 3:22 AM EDT) Patholo gist Method Time Signature Neutrophils % 71.1 % [facility] Neutr Abs (ANC) 9.55 (H) 1.50 - [facility] 6.30 [facility] x10(3)/[facility] LABORATORY Lymphocytes % 16.6 % [facility] Lymphocytes Abs 2.2 1.0 - 3.6 [facility] x10(3)/[facility] LABORATORY Monocytes % 10.0 % [facility] Monocyte Abs 1.3 (H) 0.2 - 1.0 [facility] x10(3)/[facility] LABORATORY Eosinophils % 1.5 % [facility] Eosinophils Abs 0.2 0.0 - 0.5 [facility] x10(3)/[facility] LABORATORY Basophils % 0.6 % [facility] Basophils Abs 0.1 0.0 - 0.2 [facility] x10(3)/[facility] LABORATORY Immature Gran % 0.20 % [facility] Comment: Immature granulocytes(IG's)percentage an d absolute count will include metamyelocytes, myelocytes, and promyelo cytes. Blood smears from CBCs yielding IG's will be scanned manually for concor dance. If this scan disagrees with the automated IG or if promyelocytes are not ed, a manual differential will be performed. Shannan Gran Abs 0.03 0.00 - 0.05 x10(3)/[facility] LABOR[facility] Specimen Anatomical Collection Method Collection Time Receive d Time (Source) Location / / Volume Laterality Blood specimen 12/14/2015 3:22 AM 016 3:30 (specimen) EDT AM EDT Resulting Agency Comment Spec In Lab Davide Mallory MD HEMATOLOGY ORDERABLES Performing Organization Address City/State/[place] [address] (ABNORMAL) Hemogram (12/14/2015 3:22 AM EDT) Analysis Performed At Patho logist Time Signature WBC 13.4 (H) 4.0 - 10.0 [facility] x10(3)/[facility] LABORATORY RBC 4.09 (L) 4.63 - [facility] 6.08 [facility] x10(6)/[facility] LABORATORY Hemoglobin 12.6 (L) 13.7 - [facility] 17.[facility] gm/dL [facility] Hematocrit 38.0 (L) 40.0 - [facility] 51.0 % [facility] MCV 92.9 (H) 79.0 - [facility] 92.0 [facility] LABORATORY MCH 30.8 25.6 - [facility] 32.2 pg [facility] MCHC 33.2 32.0 [facility] g[facility]/dL [facility] Platelets 267 145 - 370 [facility] x10(3)/[facility] LABORATORY RDWSD 42.5 35.0 - [facility] 46.0 [facility] LABORATORY RDWCV 12.5 10.9 - [facility] 14.4 % [facility] MPV 9.7 9.0 - 12.0 [facility] LABORATORY nRBC % Auto 0.0 % [facility] nRBC Abs Auto 0.000 0.000 - [facility] 0.012 [facility] x10(3)/[facility] LABORATORY Specimen Anatomical Collection Method Collection Time Receive d Time (Source) Location / / Volume Laterality Blood specimen 12/14/2015 3:22 AM 016 3:30 (specimen) EDT AM EDT Resulting Agency Comment Spec In Lab Davide Mallory MD HEMATOLOGY ORDERABLES Performing Organization Address City/State/[place] [address] (ABNORMAL) Basic Metabolic Panel (non-fasting) (12/14/2015 3:22 AM EDT) P athologist Signature Glucose Lvl 100 65 - 199 [facility] mg/dL [facility] Comment: Diabetes: >=200 mg/dL plus symp toms BUN 11 10 - 20 mg/dL [facility] Creatinine 1.11 0.80 - 1.50 mg/dL [facility] Comment: Please note that the pediatric reference intervals supplied above were not validated at [facility]. Results from pediatri c patients should be interpreted in conjunction to the patient's age, height and muscle mass. Sodium 136 135 - 145 mmol/L [facility] Potassium 4.0 3.5 - 5.0 mmol/L [facility] Comment: Please note: ??Patients with WBC >100,00 0 may have falsely elevated Potassium levels. ??For accurate Potassium quantif ication in these patients send serum separator tube (gold top) for subsequent determinations. ??Contact the Clinical Chemistry Laboratory if there are any qu estions. Chloride 96 (L) 98 - 107 mmol/L [facility] CO2 26 22 - 31 mmol/L [facility] Anion Gap 14 5 - 15 mmol/L [facility] Calcium 8.6 8.5 - 10.5 mg/dL [facility] Estimated GFR >60 >=60 [facility] Comment: This estimated GFR (eGFR) value [...] the following links into your internet browser. http://The Society/DHnkdep http://The Society/DHMCnkf Specimen Anatomical Collection Method Collection Time Receive d Time (Source) Location / / Volume Laterality Blood specimen 12/14/2015 3:22 AM 016 3:30 (specimen) EDT AM EDT Resulting Agency Comment Spec In Lab Davide Mallory MD CHEMISTRY ORDERABLES Performing Organization Address City/State/[place] [address] XR Knee Diagnostic 1 or 2 View Left (12/13/2015 5:51 PM EDT) Anatomical Region Laterality Modality Knee Left Digital Radiography Specimen (Source) Anatomical Location Collection Method / Collectio n Time Received Time / Laterality Volume Impressions 12/13/2015 6:20 PM EDT Expected postoperative changes status post interval left total knee arthroplasty. No periprosthetic fracture visualized. Narrative 12/13/2015 6:20 PM EDT EXAMINATION: XR KNEE DIAGNOSTIC 1 OR 2 VIEW LEFT CLINICAL HISTORY: post op TECHNIQUE: Portable AP and crosstable la teral radiographs of the left knee, 12/13/2015 at 1745 hours. COMPARISON: AP standing and lateral view s of the left knee, 10/26/2015. FINDINGS: Interval left total knee arthroplasty, a lignment appears anatomic. No periprosthetic fracture identified. Expe cted postoperative soft tissue and intra-articular gas, as well as overlyin g soft tissue swelling. Procedure Note Ying Tomas MD - 12/13/2015Formatt ing of this note might be different from the original. EXAMINATION: XR KNEE DIAGNOSTIC 1 OR 2 V IEW LEFT CLINICAL HISTORY: post op TECHNIQUE: Portable AP and crosstable la teral radiographs of the left knee, 12/13/2015 at 1745 hours. COMPARISON: AP standing and lateral view s of the left knee, 10/26/2015. FINDINGS: Interval left total knee arthroplasty, a lignment appears anatomic. No periprosthetic fracture identified. Expe cted postoperative soft tissue and intra-articular gas, as well as overlyin g soft tissue swelling. IMPRESSION Expected postoperative changes status po st interval left total knee arthroplasty. No periprosthetic fracture visualized. Davide Mallory MD IMG DX ORDERABLES documented in this encounter Visit Diagnoses Diagnosis Status post total left knee replacement Chronic back pain, unspecified back pain laterality, unspecified location Polysubstance abuse Other, mixed, or unspecified nondependen t drug abuse, unspecified Avascular necrosis of bone Aseptic necrosis of bone, site unspecifi ed documented in this encounter Admitting Diagnoses Diagnosis Avascular necrosis of bone Aseptic necrosis of bone, site unspecifi ed documented in this encounter Administered Medications Inactive Administered Medications - up to 3 most recent administrations Medication Order MAR Action Action Date Dose Rate Site acetaminophen (TYLENOL) tablet 500 Given 12/14/2015 2:09 PM EDT 500 mg mg 500 mg, Oral, EVERY 8 HOURS SCHEDULED, First dose on Christina 12/14/15 at 1400, Until Discontinued, Maximum dose of acetaminophen is 4000 mg from all sources in 24 hours., Routine amLODIPine (NORVASC) tablet 5 mg Given 12/14/2015 8:26 AM EDT 5 mg 5 mg, Oral, DAILY, First dose on Fri12/14/15 at 0900, Until Discontinued, Hold for SBP<120, Routine aspirin EC tablet 81 mg Given 12/14/2015 8:26 AM EDT 81 mg 81 mg, Oral, 2 TIMES DAILY, First dose on Fri12/14/15 at 0900, Until Discontinued, Routine atenolol (TENORMIN) tablet 50 mg Given 12/14/2015 8:27 AM EDT 50 mg 50 mg, Oral, 2 TIMES DAILY, First dose on Fri12/13/15 at 2300, Until Discontinued, Hold for SBP<110 or HR< 60, Routine Given 12/13/2015 10:19 PM EDT 50 mg buPROPion (WELLBUTRIN XL) XL tablet 300 mg Given 12/14/2015 8:28 AM EDT 300 mg 300 mg, Oral, DAILY, First dose on Fri12/14/15 at 0900, Until Discontinued, DO NOT CRUSH OR OPEN, Routine ceFAZolin (ANCEF) 1g in dextrose Given 12/14/2015 11:18 AM E DT 1,000 mg 100 mL/hr 5% 50mL 1,000 mg (1 g), Intravenous, EVERY 8 HOURS, 3 doses, First dose on Fri12/13/15 at 1900, Last dose on Fri12/14/15 at 1100, Administer over 30 Minutes, Adjust to 4 hours from intraoperative dose. * Beta-lactam based antibiotics (eg. Ampicillin, Cefazolin, Aztreonam) should be administered within 4 hours of the preceding intraoperative dose. * Vancomycin, Flouroquinolones, Clindamycin, Gentamicin, and Metronidazole should be administered within 8 hours of the preceding intraoperative dose., Recovery (Recovery-Hospital Unit), Indication for (Active or Suspected): Prophylaxis Given 12/14/2015 2:52 AM EDT 1,000 mg 100 mL/hr Given 12/13/2015 6:40 PM EDT 1,000 mg 100 mL/hr celecoxib (CeleBREX) capsule 200 mg Given 12/14/2015 8:29 AM EDT 200 mg 200 mg, Oral, 2 TIMES DAILY, First dose on Fri12/13/15 at 2300, Until Discontinued, Routine Given 12/13/2015 10:20 PM EDT 200 mg dexamethasone (DECADRON) tablet 4 mg Given 12/14/2015 8:29 AM EDT 4 mg 4 mg, Oral, DAILY, 2 doses, First dose on Fri12/14/15 at 0900, Last dose on Fri12/15/15 at 0900, Routine diaZEPam (VALIUM) tablet 5 mg Given 12/14/2015 12:27 PM EDT 5 mg 5 mg, Oral, EVERY 12 HOURS PRN, Starting on Fri12/14/15 at 0957, Until Fri12/14/15 at 1958, muscle spasm, Routine furosemide (LASIX) tablet 40 mg Given 12/14/2015 8:30 AM EDT 40 mg 40 mg, Oral, DAILY, First dose on Fri12/14/15 at 0900, Until Discontinued, Routine gabapentin (NEURONTIN) capsule 1,200 mg Given 12/14/2015 2:09 PM EDT 1,200 mg 1,200 mg, Oral, 3 TIMES DAILY, First dose on Fri12/13/15 at 2115, Until Discontinued, Routine Given 12/14/2015 8:30 AM EDT 1,200 mg Given 12/13/2015 9:40 PM EDT 1,200 mg HYDROmorphone (DILAUDID) injection 0.3 m g Given 12/13/2015 10:10 PM EDT 0.3 mg 0.3 mg, Intravenous, ONCE, 1 dose, On Fri12/13/15 at 2215, Routine HYDROmorphone (DILAUDID) injection 0.3 m g Given 12/14/2015 3:42 AM EDT 0.3 mg 0.3 mg, Intravenous, ONCE, 1 dose, On Fri12/14/15 at 0345, Routine HYDROmorphone (DILAUDID) syringe 0.4-0.6 mg Given 12/13/2015 7:42 PM EDT 0.6 mg 0.4-0.6 mg, Intravenous, EVERY 5 MIN PRN, Pain, Starting on Fri12/13/15 at 1619, Until Fri12/13/15 at 2019, For moderate pain (4-6) give: 0.2 mg every 5 minute prn For severe pain (7-10) give: 0.4 mg every 5 minutes prn Maximum dose: 4 mg per hour Hold for respiratory rate less than 10 per minute., PACU Recovery Given 12/13/2015 7:02 PM EDT 0.6 mg Given 12/13/2015 6:32 PM EDT 0.6 mg ketorolac (TORADOL) injection 15 mg Given 12/14/2015 12:02 PM EDT 15 mg 15 mg, Intravenous, EVERY 6 HOURS SCHEDULED, 4 doses, First dose on Fri12/13/15 at 2115, Last dose on Fri12/14/15 at 1800, Routine Given 12/14/2015 5:39 AM EDT 15 mg Given 12/13/2015 9:42 PM EDT 15 mg lactated ringers infusion 1,000 mL New Bag 12/13/2015 3:04 PM EDT 1,000 mL, at 100 mL/hr, Intravenous, CONTINUOUS, Starting on Fri12/13/15 at 1115, Until Fri12/13/15 at 2019, Day of Surgery (Day of Procedure) New Bag 12/13/2015 11:15 AM EDT 1,000 mLs 100 mL/hr mirtazapine (REMERON) tablet 15 mg Given 12/13/2015 10:20 PM EDT 15 mg 15 mg, Oral, NIGHTLY, First dose on Fri12/13/15 at 2300, Until Discontinued, Routine multivitamin Tjbz-Af-BY-Min (THERAPEUTIC-M) Given 08/2015 8:31 AM EDT 1 tablet 27-0.4 mg tablet 1 tablet 1 tablet, Oral, DAILY, First dose on Fri12/14/15 at 0900, Until Discontinued oxyCODONE (ROXICODONE) immediate release tablet 10 mg 10 mg, Oral, EVERY 4 HOURS PRN, Starting on Fri12/14/15 at 0950, Until Fri12/14/15 at 1958, Pain, mild pain (1-3), May give ad ditional 5 mg in 30 minutes once if pain not relieved., Routine oxyCODONE (ROXICODONE) immediate release tablet 15 mg 15 mg, Oral, EVERY 4 HOURS PRN, Starting on Fri12/14/15 at 0950, Until Fri12/14/15 at 1958, Pain, moderate pain (4-6), May give additional 5 mg in 30 minutes once if pain not relieved., Routine oxyCODONE (ROXICODONE) immediate release Given 12/14/2015 4:30 P M EDT 20 mg tablet 20 mg 20 mg, Oral, EVERY 4 HOURS PRN, Starting on Fri12/14/15 at 0950, Until Fri12/14/15 at 1958, Pain, severe pain or opiate tolerant patient (7-10), Routine Given 12/14/2015 12:27 PM EDT 20 mg oxyCODONE (ROXICODONE) immediate release Given 12/14/2015 8:33 A M EDT 15 mg tablet 5-15 mg 5-15 mg, Oral, EVERY 4 HOURS PRN, Starting on Fri12/13/15 at 2004, Until Fri12/14/15 at 0952, Pain, Give 5mg for pain 3-5 Give 10mg for pain 6-8 Give 15mg for pain 9-10, Routine Given 12/14/2015 4:12 AM EDT 15 mg Given 12/14/2015 12:10 AM EDT 15 mg pantoprazole (PROTONIX) tablet 20 mg Given 12/14/2015 8:31 AM EDT 20 mg 20 mg, Oral, DAILY, First dose on Fri12/14/15 at 0900, Until Discontinued, DO NOT CRUSH OR OPEN, Routine polyethylene glycol (MIRALAX) packet 17 g Given 12/14/2015 8:31 AM EDT 17 g 17 g, Oral, 2 TIMES DAILY, First dose on Fri12/13/15 at 2115, Until Discontinued, Routine Given 12/13/2015 10:20 PM EDT 17 g potassium chloride (K-DUR/KLOR-CON) extended Given 08/2015 8:32 AM EDT 20 mEq release tablet 20 mEq 20 mEq, Oral, DAILY, First dose on Fri12/14/15 at 0900, Until Discontinued, 20 mEq tablet may be dissolved in water for administration, Routine senna-docusate (PERICOLACE) 8.6-50 mg per Given 2015 8:32 AM EDT 2 tablets tablet 2 tablet 2 tablet, Oral, 2 TIMES DAILY, First dose on Fri12/13/15 at 2115, Until Discontinued, Routine Given 12/13/2015 9:40 PM EDT 2 tablets sodium chloride 0.9 % flush 5 mL Given 12/14/2015 8:34 AM EDT 5 mLs 5 mL, Intravenous, 2 TIMES DAILY, First dose on Fri12/13/15 at 2115, Until Discontinued, Recovery (Recovery-Hospital Unit), Routine Given 12/13/2015 9:54 PM EDT 5 mLs sodium chloride 0.9% infusion New Bag 12/14/2015 2:47 AM EDT 1,000 mLs 100 mL/hr 1,000 mL, at 100 mL/hr, Intravenous, CONTINUOUS, Starting on Fri12/13/15 at 1915, Until Christina 12/14/15 at 0949, Recovery (Recovery-Hospital Unit) New Bag 12/13/2015 7:01 PM EDT 1,000 mLs 100 mL/hr tamsulosin (FLOMAX) ER capsule 0.4 mg Given 12/14/2015 8:33 AM EDT 0.4 mg 0.4 mg, Oral, DAILY, First dose on Fri12/14/15 at 0900, Until Discontinued, DO NOT CRUSH OR OPEN, Routine traMADol (ULTRAM) tablet 100 mg Given 12/14/2015 12:03 PM EDT 100 mg 100 mg, Oral, EVERY 6 HOURS, First dose (after last modification) on Fri12/14/15 at 1200, Until Discontinued, Routine traMADol (ULTRAM) tablet 50-100 mg Given 12/14/2015 8:33 AM EDT 100 mg 50-100 mg, Oral, EVERY 4 HOURS PRN, Starting on Fri12/13/15 at 2055, Until Christina 12/14/15 at 0953, Pain, Give 50 for pain 1-5 Give 100 for pain 6-10, Routine Given 12/14/2015 2:46 AM EDT 100 mg documented in this encounter Active and Recently Administered Medications Times are shown in EDT. Scheduled Medication Order 12/12/2015 12/13/2015 12/14/2015 acetaminophen (TYLENOL) tablet 500 mg 1409 (Given - Provider: Yoana Poole RN) 500 mg, Oral, EVERY 8 HOURS SCHEDULED, F irst dose on Christina 12/14/15 at 1400, Until Discontinued, Maximum dose of acetaminophen is 4000 mg from all sources in 24 hours., Routine amLODIPine (NORVASC) tablet 5 mg 0826 (Given - Provider: Geovanna Hightower RN) 5 mg, Oral, DAILY, First dose on 12/13 at 0900, Until Discontinued, Hold for SBP<120, Routine aspirin EC tablet 81 mg 0826 (Gi mita - Provider: Geovanna Hightower RN) 81 mg, Oral, 2 TIMES DAILY, First dose o n Christina 12/14/15 at 0900, Until Discontinued, Routine atenolol (TENORMIN) tablet 50 mg 221 (G iven - Provider: Whitley Marquez RN) 08 (Given - Provider: Geovanna monzon RN) 50 mg, Oral, 2 TIMES DAILY, First dose o n Fri12/13/15 at 2300, Until Discontinued, Hold for SBP<110 or HR< 60, Routine buPROPion (WELLBUTRIN XL) XL tablet 300 mg 0828 (Given - Provider: Geovanna Hightower RN) 300 mg, Oral, DAILY, First dose on Fri at 0900, Until Discontinued, DO NOT CRUSH OR OPEN, Routine ceFAZolin (ANCEF) 1g in dextrose 5% 50mL (COMPLETED) 1840 (Given - Provider: Merced Flores RN) 0252 (Given - Provider: Sparkle monzon RN)1118 (Given - Provider: Geovanna Hightower RN) 1,000 mg (1 g), Intravenous, EVERY 8 CÉSAR RS, 3 doses, First dose on Fri12/13/15 at 1900, Last dose on Fri12/14/15 at 1100, for 30 Minutes, Adjust to 4 hours from intraoperative dose. * Beta-lactam based an tibiotics (eg. Ampicillin, Cefazolin, Az treonam) should be administered within 4 hours of the preceding intraoperative dose. * Vancomycin, Flouroquinolones, Clindamycin, Gentamicin, and Metronidazole sh ould be administered within 8 hours of t he preceding intraoperative dose., Recovery (Recovery-Hospital Unit), Indication for (Active or Suspected): Prophylaxis celecoxib (CeleBREX) capsule 200 mg 2220 (Given - Provider: Whitley Marquez RN) 0829 (Given - Provider: Geovanna monzon RN) 200 mg, Oral, 2 TIMES DAILY, First dose on Fri12/13/15 at 2300, Until Discontinued, Routine dexamethasone (DECADRON) tablet 4 mg 08 (Given - Provider: Geovanna Hightower RN) 4 mg, Oral, DAILY, 2 doses, First dose o n Fri12/14/15 at 0900, Last dose on Fri12/15/15 at 0900, Routine furosemide (LASIX) tablet 40 mg 0830 (Given - Provider: Geovanna Hightower RN) 40 mg, Oral, DAILY, First dose on 08/25 at 0900, Until Discontinued, Routine gabapentin (NEURONTIN) capsule 1,200 mg 214 (Given - Provider: Whitley Marquez RN) 0830 (Given - Provider: Geovanna monzon RN)1409 (Given - Provider: Yoana Poole RN) 1,200 mg, Oral, 3 TIMES DAILY, First dos e on Fri12/13/15 at 2115, Until Discontinued, Routine HYDROmorphone (DILAUDID) injection 0.3 mg (COMPLETED) 2209 (Given - Provider: Whitley Marquez RN) 0.3 mg, Intravenous, ONCE, 1 dose, Fri12/13/15 at 2215, Routine HYDROmorphone (DILAUDID) injection 0.3 mg (COMPLETED) 341 (Given - Provider: Sparkle Gu RN) 0.3 mg, Intravenous, ONCE, 1 dose, Fri12/14/15 at 0345, Routine ketorolac (TORADOL) injection 15 mg 214 (Given - Provider: Whitley Marquez RN) 0539 (Given - Provider: Sparkle monzon RN)1202 (Given - Provider: Geovanna Hightower RN) 15 mg, Intravenous, EVERY 6 HOURS SCHEDU LED, 4 doses, First dose on Fri12/13/15 at 2115, Last dose on Fri12/14/15 at 1800, Routine mirtazapine (REMERON) tablet 15 mg 2219 (Given - Provider: Whitley Marquez RN) 15 mg, Oral, NIGHTLY, First dose on Fri12/13/15 at 2300, Until Discontinued, Routine Mometasone-Formoterol 100-5 mcg/actuation HFAA 2 puff 2114 (Not Given - Provider: Sparkle Gu RN - Reason: See comment - Comment: medication not veried medicition not available.) 1200 (Not Given - Provider: Yoana mixon RN - Reason: See comment - Comment: Med not verified by team) 2 puff, Inhalation, 2 TIMES DAILY, First dose on Fri12/13/15 at 2 115 multivitamin Whrk-Ed-KP-Min (THERAPEUTIC-M) 27-0.4 mg tablet 1 t ablet 0831 (Given - Provider: Geovanna Hightower RN) 1 tablet, Oral, DAILY, First dose on Fri12/14/15 at 0900, Until Discontinued, Routine pantoprazole (PROTONIX) tablet 20 mg 08 (Given - Provider: Geovanna Hightower RN) 20 mg, Oral, DAILY, First dose on 08/25 at 0900, Until Discontinued, DO NOT CRUSH OR OPEN, Routine polyethylene glycol (MIRALAX) packet 17 g 2219 (Given - Provider: Whitley Marquez RN) 0831 (Given - Provider: Geovanna monzon RN) 17 g, Oral, 2 TIMES DAILY, First dose on Fri12/13/15 at 211, Until Discontinued, Routine potassium chloride (K-DUR/KLOR-CON) extended release tablet 20 m Eq 0832 (Given - Provider: Geovanna Hightower RN) 20 mEq, Oral, DAILY, First dose on Fri at 0900, Until Discontinued, 20 mEq tablet may be dissolved in water for administration, Routine senna-docusate (PERICOLACE) 8.6-50 mg per tablet 2 tablet 2139 (Given - Provider: Whitley Marquez RN) 0832 (Given - Provider: Geovanna monzon RN) 2 tablet, Oral, 2 TIMES DAILY, First dos e on Fri12/13/15 at 211, Until Discontinued, Routine sodium chloride 0.9 % flush 5 mL 2153 (G iven - Provider: Whitley Marquez RN) 0834 (Given - Provider: Geovanna monzon RN) 5 mL, Intravenous, 2 TIMES DAILY, First dose on Fri12/13/15 at 2115, Until Discontinued, Recovery (Recovery-Hospital Unit), Routine tamsulosin (FLOMAX) ER capsule 0.4 mg 0833 (Given - Provider: Geovanna Hightower, VINCENT) 0.4 mg, Oral, DAILY, First dose on Fri at 0900, Until Discontinued, DO NOT CRUSH OR OPEN, Routine traMADol (ULTRAM) tablet 100 mg 1203 (Given - Provider: Geovanna Hightower, VINCENT) 100 mg, Oral, EVERY 6 HOURS, First dose on Fri12/14/15 at 1200, Until Discontinued, Routine Continuous Medication Order 12/12/2015 12/13/2015 12/14/2015 lactated ringers infusion 1,000 mL (CANCELED) 1115 (New Bag - Provider: Kamila Bowens RN)1504 (New Bag - Provider: Zbigniew Nelson CRNA)1706 (Stopped - Provider: Zbigniew Nelson CRNA) 1,000 mL, at 100 mL/hr, Intravenous, CON TINUOUS, Starting Fri12/13/15 at 1115, Until Fri12/13/15 at 2019, Day of Surgery (Day of Procedure) sodium chloride 0.9% infusion (CANCELED) 1901 (New Bag - Provider: Merced Flores RN) 0247 (New Bag - Provider: Sparkle elliott, RN) 1,000 mL, at 100 mL/hr, Intravenous, CON TINUOUS, Starting Fri12/13/15 at 1915, Until Christina 12/14/15 at 0949, Recovery (Recovery-Hospital Unit) PRN Medication Order 12/12/2015 12/13/2015 12/14/2015 bisacodyl (DULCOLAX) EC tablet 10 mg 10 mg, Oral, 2 TIMES DAILY PRN, Starting Fri12/13/15 at 2055, Until Fri12/14/15 at 1958, Constipation, DO NOT CRUSH OR OPEN Administer if needed per patient's routine or if no bowel movement within 48 hours to achieve: 1) One bowel movement at least every 48 hours, AND 2) Without straining. If multiple bowel medications ordered, consider adding bisacodyl if polyethylene glycol (MIRALAX), docusate/senna, or lactulose not sufficient., Routine bisacodyl (DULCOLAX) suppository 10 mg 10 mg, Rectal, DAILY PRN, Starting Fri at 2055, Until Christina 12/14/15 at 1957, Constipation, Administer if needed per patient's routine or if no bowel movement within 48 hours to achieve: 1) One bowel movement at least every 48 hours, AND 2 ) Without straining. If multiple bowel medications ordered, consider adding bisacodyl if polyethylene glycol (MIRALAX), docusate/senna, or lactulose not sufficien t. If patient unable to take PO, may give CA if ordered, Routine BUpivacaine-EPINEPHrine 0.25 %-1:200,000 injection (CANCELED ) 1642 (Given - Provider: Davide Mallory MD) ONCE PRN, Starting Fri12/13/15 at 1643, U ntil Christina 12/14/15 at 1957, Intra-Operative (Intra-Procedure), Routine diaZEPam (VALIUM) tablet 5 mg 05 07 (Given - Provider: Geovanna Hightower RN) 5 mg, Oral, EVERY 12 HOURS PRN, Starting Christina 12/14/15 at 0957, Until Christina 12/14/15 at 1957, muscle spasm, Routine HYDROmorphone (DILAUDID) syringe 0.4-0.6 mg (CANCELED) 1719 (Given - Provider: Merced Flores RN)172 (Given - Provider: Merced Flores RN)183 (Given - Provider: Merced Flores RN)190 (Given - Provider: Merced Flores RN)194 (Given - Provider: Padmini Hilliard RN) 0.4-0.6 mg, Intravenous, EVERY 5 MIN PRN , Starting Fri12/13/15 at 1619, Until Fri12/13/15 at 2019, Pain, For moderate pain (4-6) give: 0.2 mg every 5 minute prn For severe pain (7-10) give: 0.4 mg every 5 minutes prn Maximum dose: 4 mg per hour Hold for respiratory rate less than 10 per minute., PACU Recovery, Routine hydrOXYzine (ATARAX) tablet 50 mg 50 mg, Oral, 3 TIMES DAILY PRN, Starting Fri12/13/15 at 2054, Until Fri12/14/15 at 1957, Itching, Routine lactulose (CHRONULAC) 20 gram/30 mL oral solution 20-40 g 20-40 g (30-60 mL), Oral, DAILY PRN, Sta rting Fri12/13/15 at 2054, Until Fri12/14/15 at 1957, Constipation, Administer if needed per patient's routine or if no bowel movement within 48 hours. Start with 3 0 mL orally to achieve: 1) One bowel mov ement at least every 48 hours, AND 2) Without straining. If no bowel movement within 24 hours, may increase to 60 mL orally once daily PRN. If multiple bowel medi cations ordered, consider adding lactulo se first or if polyethylene glycol (MIRALAX) or docusate/senna not sufficient., Routine lidocaine (XYLOCAINE) 10 mg/mL (1 %) injection 3 mg 3 mg (0.3 mL), Subcutaneous, ONCE PRN, 1 dose, Starting Fri12/13/15 at 2054, Until Fri12/14/15 at 1957, for discomfort with PIV insertion, Recovery (Recovery- Hospital Unit), Routine oxyCODONE (ROXICODONE) immediate release tablet 10 mg(Linked Rachelle up 1) 1227 (See Alternative - Provider: Geovanna Hightower RN)1630 (See Alternative - Provider: Geovanna Hightower RN) 10 mg, Oral, EVERY 4 HOURS PRN, Starting Fri12/14/15 at 0950, Until Fri12/14/15 at 1957, Pain, mild pain (1-3), May give additional 5 mg in 30 minutes once if pain not relieved., Routine oxyCODONE (ROXICODONE) immediate release tablet 15 mg(Linked Rachelel up 1) 1227 (See Alternative - Provider: Geovanna Hightower RN)1630 (See Alternative - Provider: Geovanna Hightower RN) 15 mg, Oral, EVERY 4 HOURS PRN, Starting Fri12/14/15 at 0950, Until Fri12/14/15 at 1957, Pain, moderate pain (4-6), May give additional 5 mg in 30 minutes once if pain not relieved., Routine oxyCODONE (ROXICODONE) immediate release tablet 20 mg(Linked Rachelle up 1) 1227 (Given - Provider: Geovanna Hightower, VINCENT)1630 (Given - Provider: Geovanna Hightower, VINCENT) 20 mg, Oral, EVERY 4 HOURS PRN, Starting Christina 12/14/15 at 0950, Until Christina 12/14/15 at 1958, Pain, severe pain or opiate tolerant patient (7-10), Routine oxyCODONE (ROXICODONE) immediate release tablet 5-15 mg (CAN CELED) 2011 (Given - Provider: Padmini Hilliard RN) 001 (Given - Provider: Whitley keen RN)041 (Given - Provider: Sparkle Gu, VINCENT)0833 (Given - Provider: Geovanna Hightower, VINCENT) 5-15 mg, Oral, EVERY 4 HOURS PRN, Starti ng Wed 12/13/15 at 2004, Until Christina 8 at 0952, Pain, Give 5mg for pain 3-5 Give 10mg for pain 6-8 Give 15mg for pain 9-10, Routine sodium chloride 0.9 % flush 5-20 mL 5-20 mL, Intravenous, EVERY 1 MIN PRN, S tarting Fri12/13/15 at 2054, Until Christina 8 at 1958, flush, Flush pertains to all indwelling lines. Flush per protocol found in the job aid using the link provid ed on this medication record., Recovery (Recovery-Hospital Unit) , Routine traMADol (ULTRAM) tablet 50-100 mg (CANCELED) 024 (Given - Provider: Sparkle Gu RN)0833 (Given - Provider: Geovanna Hightower, VINCENT) 50-100 mg, Oral, EVERY 4 HOURS PRN, Star ting 12/13/15 at 2054, Until Christina 8 at 0953, Pain, Give 50 for pain 1-5 Give 100 for pain 6-10, Routine Linked Groups Order Group 1: oxyCODONE (ROXICODONE) immediate release tablet 10 mgJump to med 10 mg, Oral, EVERY 4 HOURS PRN, Starting Christina 12/14/15 at 0950, Until Christina 12/14/15 at 1958, Pain, mild pain (1-3)
May give additional 5 mg in 30 minutes once if pain not relieved.
Routine Or oxyCODONE (ROXICODONE) immediate release tablet 15 mgJump to med 15 mg, Oral, EVERY 4 HOURS PRN, Starting Christina 12/14/15 at 0950, Until Christina 12/14/15 at 1958, Pain, moderate pain (4-6)
May give additional 5 mg in 30 minutes once if pain not relieved.
Routine Or oxyCODONE (ROXICODONE) immediate release tablet 20 mgJump to med 20 mg, Oral, EVERY 4 HOURS PRN, Starting Christina 12/14/15 at 0950, Until Christina 12/14/15 at 1958, Pain, severe pain or opiate tolerant patient (7-10), Routine documented in this encounter Care Teams Software Test And Validation Engineer Relationship Specialty Start Date End Date Azalia Peña APRN PCP - General 11/19/13 03/19/17 documented as of this encounter
--- OUTSIDE RECORDS SUMMARY | 2021-11-30 08:24 | XMS_ITS | Encounter Summary ---
:1955 Author Organization [facility] [address] Care Team Providers Name Role Phone Azalia Peña APRN Primary Care Provider Reason for Visit Reason Onset Date Comments Knee Pain 10/24/2015 Encounter Details Date Type Department Care Team Description 10/24/2015 Telephone Orthopaedics at [facility] Gordon Mallory MD Knee Pain [facility] [place] [address] ORTHOPAEDICS [phone] [place] [id number] (Wo rk) Social History Tobacco Use Types [...] this encounter Miscellaneous Notes Telephone Encounter - Мария Jeter, [facility] - 10/24/2015 12:43 PM EDT Mahin thinks that he should have his left knee replaced before his right. He wrenched his knee three weeks ago and does say that he is not using crutches but wants to know what he should do. He statesthat he feel like something broke inside his knee. I have offered him appt with . Mahin is coming in to see 10/26/15 with a new xray of the left knee. documented in this encounter Plan of Treatment Upcoming Encounters Date Type Specialty Care Team Description 12/11/2021 Appointment Radiology 12/11/2021 Office Visit Orthopaedics Marion Tavera APRN [facility] ER DR ORTHOPAEDIC SURG [place], [place] [address] (Wo rk) 01/15/2022 Appointment Radiology Stiven Cervantes MD [facility] Pulmonary Medici [place], [place] [address] (Wo rk) Scheduled Procedures Name Priority Associated Diagnoses Date/Time DEBRIDEMENT SKIN, SUBCU, MUSCLE, R great toe amp utation, wound LOWER EXTREMITY (WRVU 2.7) closure MODIFIER WOUND VAC R great toe amputation, wound closure documented as of this encounter Visit Diagnoses Not on filedocumented in this encounter Care Teams Pull Socket Assembler Relationship Specialty Start Date End Date Azalia Peña APRN PCP - General 11/19/13 03/19/17 documented as of this encounter
--- OUTSIDE RECORDS SUMMARY | 2021-11-30 08:24 | XMS_ITS | Encounter Summary ---
:1955 Author Organization [facility] Address [facility] [address] [place] [address] Care Team Providers Name Role Phone Azalia Peña APRN Primary Care Provider Encounter Details Date Type Department Care Team Description 11/14/2015 Clinical Support Same Day at [facility] Ankle fracture, left; [facility] Bilateral chronic knee pain; Drive [place]ascular [place] [address] Social History Tobacco Use Types Packs/Day Years Used Date Current Some Day Smoker Cigarettes 0.1 42 Quit : 04/29/2015 Smokeless Tobacco: Former User Comments: STATES THAT [...] Taken Comments Blood Pressure - - Pulse 75 11/14/2015 12:10 PM EDT Temperature - - Respiratory Rate - - Oxygen Saturation 96% 11/14/2015 12:10 PM EDT Inhaled Oxygen Concentration - - Weight 98.9 kg (218 lb) 11/14/2015 12:10 PM EDT Height 175.3 cm (5' 9) 11/14/2015 12:10 PM EDT Body Mass Index 32.19 11/14/2015 12:10 PM EDT documented in this encounter Progress Notes Luis Martinez, RN - 11/14/2015 12:35 PM EDT PAT questionnaire reviewed with patient while in Pre Admission testing. Pre- operative instruction booklet reviewed. Patient verbalizes a good understanding of all information reviewed. Patient has had general anesthesia previously at another facility without a problem. PLAN: Testing: Blood work + T&S + EKG + CXR + urine Procedure date: 12/03 Jevsevar documented in this encounter Plan of Treatment Upcoming Encounters Date Type Specialty Care Team Description 12/11/2021 Appointment Radiology 12/11/2021 Office Visit Orthopaedics Marion Tavera APRN [facility] ORTHOPAEDIC SURG [place], [place] [address] (Wo rk) 01/15/2022 Appointment Radiology Stiven Cervantes MD [facility] Pulmonary Medici [place], [place] [address] (Wo rk) Scheduled Procedures Name Priority Associated Diagnoses Date/Time DEBRIDEMENT SKIN, SUBCU, MUSCLE, R great toe amp utation, wound LOWER EXTREMITY (WRVU 2.7) closure MODIFIER WOUND VAC R great toe amputation, wound closure documented as of this encounter Procedures Procedure Name Priority Date/Time Associated Diagnosis Comme nts EKG 12-LEAD Routine 11/14/2015 1:04 PM Ankle fractur e, left Results for this EDT Bilateral chronic procedure are in the knee pain results section. Avascular necrosis bilateral knees documented in this encounter Results EKG 12 Lead (11/14/2015 1:04 PM EDT) Component Value Ref Range Test Analysis Performed Pathologis t Method Time At Signature Ventricular rate 62 BPM MUSE SYSTEM Atrial Rate 62 BPM MUSE SYSTEM P-R Interval 166 ms MUSE SYSTEM QRS Duration 66 ms MUSE SYSTEM Q-T Interval 440 ms MUSE SYSTEM QTC Calculated 446 ms MUSE SYSTEM (Bezet) Calculated P [place] 58 degrees MUSE SYSTEM Calculated R [place] 50 degrees MUSE SYSTEM Calculated T [place] 58 degrees MUSE SYSTEM INTERPRETATION Sinus rhythm with marked sinus arrhythmia MUSE SYSTEM Normal ECG When compared with ECG of 19-AUG-2012 18:07, No significant change was found Confirmed by MD Jacob, Cristian ([id number]) on 11/15/2015 9:15:11 AM Specimen Anatomical Collection Method Collection Time Receive d Time (Source) Location / / Volume Laterality 11/14/2015 1:04 PM 9:15 EDT AM EDT Gordon Mallory MD ECG ORDERABLES Performing Organization Address City/State/ZIP Code Phon e Number MUSE SYSTEM documented in this encounter Visit Diagnoses Diagnosis Ankle fracture, left Unspecified closed fracture of ankle Bilateral chronic knee pain Pain in joint, lower leg 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
--- OUTSIDE RECORDS SUMMARY | 2021-11-30 08:24 | XMS_ITS | Encounter Summary ---
:1955 Author Organization [facility] [place] [address] Care Team Providers Name Role Phone Mariana Azalia Eason APRN Primary Care Provider Encounter Details Date Type Department Care Team Description 09/26/2015 Office Visit Orthopaedics at [facility] Gordon Mallory [place] [address] ORTHOPAEDICS [place] [id number] Social History Tobacco Use Types Packs/Day Years [...] documented as of this encounter Progress Notes Gordon Mallory MD - 10/13/2015 10:27 AM EDT This patient was not seen in this encounter. Rick Avila RN - 09/26/2015 10:41 AM EDT . documented in this encounter Plan of Treatment Upcoming Encounters Date Type Specialty Care Team Description 12/11/2021 Appointment Radiology 12/11/2021 Office Visit Orthopaedics Marion Tavera APRN [facility] DR ORTHOPAEDIC SURG [place], [place] [address] (Wo rk) 01/15/2022 Appointment Radiology Stiven Cervantes MD [facility] Pulmonary Medici [place], [place] [address] (Wo rk) Scheduled Procedures Name Priority Associated Diagnoses Date/Time DEBRIDEMENT SKIN, SUBCU, MUSCLE, R great toe amp utation, wound LOWER EXTREMITY (WRVU 2.7) closure MODIFIER WOUND VAC R great toe amputation, wound closure documented as of this encounter Visit Diagnoses Diagnosis DH PATIENT NOT SEEN documented in this encounter Care Teams Manager Car Relationship Specialty Start Date End Date Azalia Peña APRN PCP - General 11/19/13 03/19/17 documented as of this encounter
--- OUTSIDE RECORDS SUMMARY | 2021-11-30 08:24 | XMS_ITS | Encounter Summary ---
:1955 Author Organization [facility] [place] [address] Care Team Providers Name Role Phone Azalia Peña APRN Primary Care Provider Reason for Visit Auth/Cert - Closed Specialty Diagnoses / Procedures Referred By Contact Refer red To Contact Diagnoses Chronic viral hepatitis C Cirrhosis, varices screening Procedures PRO UPPER GI ENDOSCOPY, DIAGNOSTIC PRO ANESTH, UGI ENDOSCOPY EGD, UPPER GI ENDOSCOPY Referral ID Status Reason Start Date Expiration Date Visits Requ ested Visits Authorized [id number] Closed 1 1 Encounter Details Date Type Department Care Team Description 08/17/2015 Hospital Encounter Gastroenterology at [facility] [place] Trev Hong MD [facility] [place] [address] [place] [address] GASTROENTEROLOGY [place], [place] [address] Social History Tobacco Use Types Packs/Day Years Used Date Former Smoker Cigarettes 0.1 42 Smokeless Tobacco: Former User Comments: STATES THAT HE STOPPED TWO Fri AGO 04/2015 Alcohol Use Standard Drinks/Week Comments Yes 17.5 (1 standard drink = 0.6 oz pure alc ohol) OCC maybe a six pack a week [...] Sign Reading Time Taken Comments Blood Pressure 129/72 08/17/2015 10:00 AM EDT Pulse 79 08/17/2015 10:00 AM EDT Temperature - - Respiratory Rate 18 08/17/2015 10:00 AM EDT Oxygen Saturation 92% 08/17/2015 10:00 AM EDT Inhaled Oxygen Concentration - - Weight - - Height - - Body Mass Index - - documented in this encounter Discharge Instructions Discharge InstructionsCrystal Toure RN - 08/17/2015 10:01 AM EDT UPPER GI ENDOSCOPY WHAT TO EXPECT AFTER THE PROCEDURE After the test you may feel a little more gassy or bloated than usual, this is normal. ACTIVITY Because of the sedation that you received your judgement and reaction time are affected. Go home andrest quietly for the remainder of the day. You may resume your normal activities tomorrow. Change from one position to the next slowly. You may lose your balance unexpectedly. Be careful on stairs, as you may be unsteady on your feet. FOR THE NEXT [address] OR OPERATE ANY MACHINERY DO NOT DRINK ALCOHOLIC BEVERAGES DO NOT SIGN LEGAL DOCUMENTS If you are a smoker: DO NOT SMOKE WHILE YOU ARE ALONE Diet Start by eating small portions of foods that ordinarily will not upset your stomach. Be gentle withwhat you choose to start with. Drink plenty of fluids ( unless otherwise told not to) Medications You may have a mild sore throat. Ice chips, popsicles, over the counter throat lozenges or spray may help numb your throat. This procedure should not cause a fever. IV SITE-- slight redness or tenderness is normal, you can use warm compresses if you get concerned.If the tenderness +/or redness increases or foul drainage and a red streak occurs, please contact your PCP immediately. WHEN SHOULD YOU CALL FOR HELP? Call 911 anytime you think that you need emergency care. For example, call if: You passed out (lost consciousness). You cough up blood. You vomit blood or what looks like coffee grounds. You pass maroon or very bloody stools. Call your healthcare provider or seek immediate medical attention if: You have trouble swallowing. You have belly pain. Your stools are black or tarlike or have streaks of blood. You are sick to your stomach or cannot keep fluids down. Watch closely for changes in your health, and be sure to contact your doctor IF Your throat still hurts after a day or two You do not get better as expected. Who to call Same Day Endoscopy [phone] [id number] [id number] Otherwise contact [phone] and ask to speak to the property analyst production pattern maker. Follow-up care is a hansen part of your treatment and safety. Be sure to make and go to all appointments, and call your doctor if you are having problems. Instructions have been reviewed and patient expresses understanding. documented in this encounter Medications at Time of Discharge Medication Sig Dispensed Refills Start Date End Date multivitamin (THERAGRAN) Take 1 tablet by 0 08/21 tablet mouth daily. traMADol (ULTRAM) 50 mg Take 100 mg by mouth 0 12/14/2015 Tablet every 6 hours as needed for Pain. furosemide (LASIX) 40 mg Take 1 tablet by 0 09/1009/08/2017 Tablet mouth 2 times daily. Reported on 07/08/2016 gabapentin (NEURONTIN) Take 2 tablets by 0 201403/01/2020 600 mg Tablet mouth 3 times daily. acetaminophen (TYLENOL) Take 1,000 mg by 0 12/14/2015 500 mg Tablet mouth as needed. potassium chloride Take 20 mEq by mouth 0 015 08/20/2016 (KLOR-CON) 20 mEq Packet daily. Reported on 06/13/2016 ibuprofen (ADVIL;MOTRIN) Take 800 mg by mouth 0 12/14/2015 800 mg Tablet as needed. DULERA 200-5 Inhale 1 puff into 0 01/19/2014 07/0 09/2015 mcg/actuation HFA Aerosol the lungs as needed. Inhaler omeprazole (PRILOSEC) 40 Take 40 mg by mouth 0 08/20/2016 mg Capsule, Delayed daily. Reported on Release(E.C.) 07/08/2016 buPROPion (WELLBUTRIN XL) take 1 tablet by 30 tablet 5 09/1008/20/2016 300 mg 24 hr tablet mouth every morning diaZEPam (VALIUM) 5 mg Take 1 tablet by 90 tablet 1 013 10/26/2015 tablet mouth 3 times daily as needed for Anxiety. atenolol (TENORMIN) 50 mg Take 1 tablet by 90 tablet 3 07/1008/28/2016 tablet mouth 2 times daily. amlodipine (NORVASC) 5 mg Take 1 tablet by 90 tablet 3 04/1108/20/2016 tablet mouth daily. documented as of this encounter H&P Notes Trev Hong MD - 08/17/2015 9:41 AM EDT Gastroenterology and Hepatology Pre-Procedure History and Physical Exam Procedure: EGD: Indication: variceal screening, pt with hep c stanton A cirrhosis, last 2012 Patient Active Problem List Diagnosis Code ??? [...] Ankle fracture, left S82.892A ??? Cirrhosis K74.60 EXAM: HEENT: Airway examined, oropharynx clear Mallampati Score: II (soft palate, uvula, fauces visible) LUNGS: Clear to auscultation HEART: Regular rate and rhythm, normal S1, S2 ABDOMEN: Normal bowel sounds, soft, non tender, non distended, A/P Proceed with the planned endoscopic procedure. ASA 3 - Patient with moderate systemic disease with functional limitations Sedation Plan: deep Risks and benefits of the procedure explained to the patient. Consent signed. documented in this encounter Plan of Treatment Upcoming Encounters Date Type Specialty Care Team Description 12/11/2021 Appointment Radiology 12/11/2021 Office Visit Orthopaedics Marion Tavera APRN [facility]THOP[facility]EDIC [place] [address] (Wo rk) 01/15/2022 Appointment Radiology Stiven Cervantes MD [facility] er Dr Carlos Dumont [place] [phone] (Jorge ) Scheduled Procedures Name Priority Associated Diagnoses Date/Time DEBRIDEMENT SKIN, SUBCU, MUSCLE, R great toe amp utation, wound LOWER EXTREMITY (WRVU 2.7) closure MODIFIER WOUND VAC R great toe amputation, wound closure documented as of this encounter Procedures Procedure Name Priority Date/Time Associated Diagnosis Comme nts EGD, UPPER GI 08/17/2015 9:40 AM Chronic hepatitis C ENDOSCOPY EDT without hepatic coma UPPER GI ENDOSCOPY Routine 08/17/2015 9:30 AM Res ults for this EDT procedure are i n the results section. documented in this encounter Results UPPER GI ENDOSCOPY (08/17/2015 9:30 AM EDT) Component Value Ref Test Analysis Performed At [facility] Range Method Time Signature UPPER GI [facility] ENDOSCOPY Endoscopy Patient Name: Mahin Ramos ? Procedure Date: 08/17/2015 9:30 AM ? N: [id number] ? Date of : 1955 ? Age: 59 ? Order #: [id number] ? Procedure: ? Upper GI endoscopy Indications: ? Variceal screening (no known varice s ? or prior bleeding). Hep C cir rhosis. Providers: ? Trev Hong MD, Padmini Yun , ? RN, Jocelyne Leal RN Referring MD: ?Azalia Peña Medicines: ? Monitored Anesthesia Care Complications: ? No immediate complications. Procedure: ? Pre-Anesthesia Assessment: ? - Prior to the procedure, a H istory ? and Physical was performed, a nd ? patient medications and aller gies ? were reviewed. The patient is ? competent. The risks and bene fits of ? the procedure and the sedatio n ? options and risks were discus sed with ? the patient. All questions we re ? answered and informed consent was ? obtained. Patient identificat ion and ? proposed procedure were verif ied by ? the physician, the nurse, the ? guest relations receptionist and the technicia n in the ? endoscopy suite. Mental Statu s ? Examination: normal. Respirat ory ? Examination: clear to auscult ation. ? CV Examination: normal. Proph ylactic ? Antibiotics: The patient does not ? require prophylactic antibiot ics. ? Prior Anticoagulants: The pat ient has ? taken no previous anticoagula nt or ? antiplatelet agents. ASA Grad e ? Assessment: III - A patient w ith ? severe systemic disease. Afte r ? reviewing the risks and benef its, the ? patient was deemed in satisfa ctory ? condition to undergo the proc edure. ? The anesthesia plan was to us e ? monitored anesthesia care (MA C). ? Immediately prior to administ ration ? of medications, the patient w as ? re-assessed for adequacy to r eceive ? sedatives. The heart rate, ? respiratory rate, oxygen satu rations, ? blood pressure, adequacy of p ulmonary ? ventilation, and response to care ? were monitored throughout the ? procedure. The physical statu s of the ? patient was re-assessed after the ? procedure. ? The procedure, indications, b enefits, ? risks and alternatives were e xplained ? to the patient. Specifically ? discussed were potential ? complications including, but not ? limited to, bleeding, perfora tion, ? infection, missing a cancer, and ? adverse medication reactions. The ? Endoscope was introduced thro ugh the ? mouth, and advanced to the se cond ? part of duodenum. The patient ? tolerated the procedure well. The ? upper GI endoscopy was accomp lished ? with ease. The patient tolera lul the ? procedure well. ? Findings: ? The examined esophagus was normal. No varices. ? Mild portal hypertensive gastropathy was found in the ? gastric fundus and in the gastric body. No gastric ? varices. ? The examined duodenum was normal. ? Impression: ?- No esophageal or gastric varices . ? - Mild portal hypertensive ? gastropathy. Recommendation: ?- Return to referring physician. ? - Repeat the upper endoscopy in 2 ? years for screening purposes. ? Trev Hong MD 08/17/2015 9:54 AM Number of Addenda: 0 Note Initiated On: 08/17/2015 9:30 AM Specimen (Source) Anatomical Collection Method Collection Time Re ceived Time Location / / Volume Laterality 08/17/2015 9:30 AM EDT Azalia Peña APRN GENERAL SURGICAL ORDERABLES Performing Organization Address City/State/ZIP Code Phon e Number PROVATION documented in this encounter Visit Diagnoses Not on filedocumented in this encounter Active and Recently Administered Medications Times are shown in EDT. Continuous Medication Order 08/15/2015 08/16/2015 08/17/2015 lactated ringers infusion (CANCELED) [id number] (New Bag - Provider: Gordon Wade CRNA)[id number] (Anesthesia Volume Adjustment - Provider: Gordon Wade CRNA) 50 mL/hr, at 50 mL/hr, Intravenous, CONT INUOUS, Starting Christina 08/17/15 at 0915, Until Christina 08/17/15 at 1026, Endo (Day of Procedure) documented in this encounter Care Teams Line Pilot Relationship Specialty Start Date End Date Azalia Peña, ON CAR SUPERVISOR PCP - General 11/19/13 03/19/17 documented as of this encounter
--- OUTSIDE RECORDS SUMMARY | 2021-11-30 08:24 | XMS_ITS | Encounter Summary ---
:1955 Author Organization [facility] [place] [address] Care Team Providers Name Role Phone Azalia Peña APRN Primary Care Provider Encounter Details Date Type Department Care Team Description 07/25/2015 Hospital Encounter [facility]Ray at [facility] [place] Gordon Mallory Ankle fracture, left [address] [place], [address] [phone] [place] [address] Social History Tobacco Use Types Packs/Day Years Used Date Former Smoker Cigarettes 0.1 42 Smokeless Tobacco: Former User Comments: STATES THAT HE STOPPED TWO FriS AGO 04/2015 Alcohol Use Standard Drinks/Week Comments Yes 17.5 (1 standard drink = 0.6 oz pure alc ohol) OCC Alcohol Habits Answer Date Recorded How often do you have a drink containing alcohol? Not asked How many drinks containing alcohol do you have on a typical Not asked day when you are drinking? How often do you have six or more drinks on one occasion? No t asked Comment: OCC 06/13/2015 Sex Assigned at Date Recorded Not on file documented as of this encounter Medications at Time of Discharge Medication Sig Dispensed Refills Start Date End Date multivitamin (THERAGRAN) Take 1 tablet by 0 08/21 tablet mouth daily. traMADol (ULTRAM) 50 mg Take 100 mg by mouth 0 12/14/2015 Tablet every 6 hours as needed for Pain. methimazole (TAPAZOLE) 10 Take 10 mg by mouth 0 08/09/2015 mg Tablet as needed. furosemide (LASIX) 40 mg Take 1 tablet [...] DULERA 200-5 Inhale 1 puff into 0 01/19/201409/2015 mcg/actuation HFA Aerosol the lungs as needed. [...] APRN [facility] ORTHOPAEDIC SURG [place], [place] [address] (Wo rk) 01/15/2022 Appointment Radiology St[facility]antes [facility] [place], [place] [address] (Wo rk) Scheduled Procedures Name Priority Associated Diagnoses Date/Time DEBRIDEMENT SKIN, SUBCU, MUSCLE, R great toe amp utation, wound LOWER EXTREMITY (WRVU 2.7) closure MODIFIER WOUND VAC R great toe amputation, wound closure documented as of this encounter Procedures Procedure Name Priority Date/Time Associated Diagnosis Comme nts XR ANKLE BILAT Routine 07/25/2015 1:59 PM Ankle fracture, left Results for this EDT procedure are i n the results section . documented in this encounter Results XR Ankles Bilateral (07/25/2015 1:59 PM EDT) Anatomical Region Laterality Modality Foot Bilateral Digital Radiography Specimen (Source) Anatomical Location Collection Method / Collectio n Time Received Time / Laterality Volume Impressions 07/25/2015 3:22 PM EDT IMPRESSION: Stable oblique linear lucency through th e left medial malleolus. No acute right-sided fracture or malalignment. Narrative 07/25/2015 3:22 PM EDT EXAMINATION: XR ANKLES BILATERAL 3 VIEWS MINIMUM CLINICAL HISTORY: left ankle fracture/ r ight ankle pain TECHNIQUE: AP, oblique and lateral views of both ankles COMPARISON: June 13, 2015 left ankle FINDINGS: Left ankle: Linear lucency through the m edial malleolus persists. No change in alignment about the ankle mortise. Overl gayla cast has been removed. Loss of bone density through the ankle joint is uncha nged. Small ankle joint effusion. Right ankle: Ankle mortise congruent. Mi ld soft tissue swelling bilaterally without acute fracture nor malalignment. Procedure Note Penny Ge MD - 07/25/2015 EXAMINATION: XR ANKLES BILATERAL 3 VIEWS MINIMUM CLINICAL HISTORY: left ankle fracture/ r ight ankle pain TECHNIQUE: AP, oblique and lateral views of both ankles COMPARISON: June 13, 2015 left ankle FINDINGS: Left ankle: Linear lucency through the m edial malleolus persists. No change in alignment about the ankle mortise. Overl gayla cast has been removed. Loss of bone density through the ankle joint is uncha nged. Small ankle joint effusion. Right ankle: Ankle mortise congruent. Mi ld soft tissue swelling bilaterally without acute fracture nor malalignment. IMPRESSION IMPRESSION: Stable oblique linear lucency through th e left medial malleolus. No acute right-sided fracture or malalignment. Gordon Mallory MD IMG DX ORDERABLES documented in this encounter Visit Diagnoses Diagnosis Ankle fracture, left Unspecified closed fracture of ankle documented in this encounter Care Teams Market Research Manager Relationship Specialty Start Date End Date Azalia Peña APRN PCP - General 11/19/13 03/19/17 documented as of this encounter
--- OUTSIDE RECORDS SUMMARY | 2021-11-30 08:24 | XMS_ITS | Encounter Summary ---
:1955 Author Organization [facility] [place] [address] Care Team Providers Name Role Phone Azalia Peña APRN Primary Care Provider Encounter Details Date Type Department Care Team Description 11/29/2015 Telephone [place] [address] Social History Tobacco Use Types Packs/Day [...] Notes Telephone Encounter - Mago Collazo - 11/29/2015 10:01 AM EDT Left message for Mahin to call so as to go over aftercare and d/c plans cc his surgery with Dr. Mallory on 12/04/15. I provided my contact information and asked that if he gets my voicemail to give maria a time when I can best reach him. documented in this encounter Plan of Treatment Upcoming Encounters Date Type Specialty Care Team Description 12/11/2021 Appointment Radiology 12/11/2021 Office Visit Orthopaedics Marion Tavera APRN [facility] ORTHOPAEDIC SURG [place], [place] [address] (Wo rk) 01/15/2022 Appointment Radiology Stiven Cervantes MD [facility] Pulmonary Medici [place], [place] [address] (Wo rk) Scheduled Procedures Name Priority Associated Diagnoses Date/Time DEBRIDEMENT SKIN, SUBCU, MUSCLE, R great toe amp utation, wound LOWER EXTREMITY (WRVU 2.7) closure MODIFIER WOUND VAC R great toe amputation, wound closure documented as of this encounter Visit Diagnoses Not on filedocumented in this encounter Care Teams Satellite Installation Technician Relationship Specialty Start Date End Date Azalia Peña APRN PCP - General 11/19/13 03/19/17 documented as of this encounter
--- OUTSIDE RECORDS SUMMARY | 2021-11-30 08:24 | XMS_ITS | Encounter Summary ---
:1955 [place] [address] Care Team Providers Name Role Phone Azalia [...] Expiration Date Visits Requ ested Visits Authorized [id number] 1 1 Encounter Details Date Type Department Care Team Description 12/13/2015 Anesthesia Event Main Operating Room Lonnie Gibbs MD [facility] [place] [address] [facility] PatelDanya, GEOPHYSICAL DRAFTER [address] [place] [address] [place] [address] Anesthesia Record Procedure Summary Procedure Name Responsible Anesthesia Start Anesthesia Stop Anesthesiologist Time Time TOTAL KNEE Lonnie Aguirre MD 12/13/15 1349 12/13/15 1 706 ARTHROPLASTY (WRVU 20.72) (Left Knee) Events Date Time Event Comment 12/13/2015 1349 Start 1352 AN Verify 1352 An Start Data 1400 An Induction 1403 An Intubation 1410 Anesthesia Ready 1428 Procedure Start 1429 An Tourn Inflated 250 mmhg 1617 An Tourn Deflated 1644 Extubation/LMA Out 1653 an stop data 1706 Recovery or ICU Handoff Patient care was transferred to the destination unit staff after review of the patient's medica l history, current anesthetic/surgi karla status and plan, according to the Provider Handoff Checklist. 1706 Stop 12/14/2015 0826 Name Total Midazolam 2 mg fentaNYL 100 mcg IV Lidocaine 60 mg Propofol 350 mg Rocuronium 40 mg PHENYLephrine 160 mcg ePHEDrine 35 mg Glycopyrrolate 0.4 mg Ketamine 10 mg/mL 30 mg Ketamine INF 166.43 mg ceFAZolin 2 g HYDROmorphone 4 mg Tranexamic Acid 1,400 mg lactated ringers infusion 1,000 mL 1,300 mL Agents Name O2 Air Sevoflurane (et) Blood No blood administrations on file. Lines, Drains, and Airways Type Details Placement Removal Incision 12/13/15; knee; 11/23/21; 12/13/15 0000 by Alejandra montana, 11/23/21 1323 by Micah, 1323 VINCENT Philippe RN PIV 12/13/15; 1128; metacarpal 12/13/15 1128 by Rosamaria monzon, 12/14/15 1600 by vein left (top of hand); VINCENT Strickland Brandy L, RN [id number] catheter system; 18 gauge; Kamila Bowens RN; 12/14/15; 1600 ETT Mask Ventilation: Easy (1) 12/13/15 1403 by Oly atkins, 12/13/15 1644 by (with opa); ETT Type: ZULEIKA Sorenson R yan L, CRNA Cuffed, Oral; ETT Size: 7.5 mm; Mac Blade: 4; Notes: Asleep, Pre-O2, Stylette; Attempts: 1; Laryngoscopy Grade: 1; ETT Placement Verified By: Auscultation, Capnometry, Visual; Secured at Teeth: 22 cm; Inserted by: Leslie PIV Peds 12/13/15 1406 by Leslie, 1600 by ZULEIKA Sorenson Brandy L, RN documented in this encounter Social History Tobacco Use Types Packs/Day Years Used Date Former Smoker Cigarettes 0.1 42 Quit: 09/28/19 Smokeless Tobacco: Former User Comments: STATES THAT [...] encounter OR Notes Anesthesia Postprocedure Evaluation - Lonnie Aguirre MD - 12/14/2015 8:26 AM EDT [facility] [place] Department of Anesthesiology Post-procedure Note Patient: Mahin Ramos Procedure Summary Date Anesthesia Start Anesthesia Stop Room / Location 12/13/15 1349 1706 [facility] OR 10 / [facility] MAIN OR Procedure Diagnosis Surgeon Responsible Provider @TOTAL KNEE ARTHROPLASTY (Left Knee); MODIFIER TC3 FIXED MODULAR DEPUY (Left Knee); MODIFIER TC3 ROTATING PLATFORM DEPUY (Left Knee) Avascular necrosis; Bilateral chronic knee pain (LEFT knee AVN) Gordon Mallory MD Sidash, Stanislav, MD All Anesthesia Providers: Anesthesiologist: Lonnie Aguirre MD ASSEMBLER FITTER: Zbigniew Nelson CRNA Last (1hr) Vitals: BP (!) 144/99 (12/14/15 0826) Temp Pulse Resp SpO2 Patient Location: Floor Level of Consciousness: Awake and Alert Pain Management: Pain Being Addressed PONV: None Cardiovascular Status: Respiratory Status: At Baseline Postoperative Fluid Status: Intravascular EUvolemia Possible Anesthetic Complications: NONE apparent at time of evaluation Final Primary Anesthesia Type: General (The anesthetic type performed was the same as planned.) Comments: Anesthesia Preprocedure Evaluation - Lonnie Aguirre MD - 11/29/2015 12:08 PM EDT Images from the original note were not included. Pre-Anesthesia Evaluation for: Mahin Ramos a 60 y.o. male. Procedure(s): @TOTAL KNEE ARTHROPLASTY MODIFIER TC3 FIXED MODULAR DEPUY MODIFIER TC3 ROTATING PLATFORM DEPUY Patient Active Problem List Diagnosis ??? Avascular necrosis of bone ??? Cirrhosis ??? Ankle fracture, left ??? Polysubstance abuse ??? Avascular necrosis bilateral knees ??? Confusion ??? Community acquired pneumonia ??? Imbalance ??? Hepatitis C Genotype 2b ??? Alcohol dependence ??? Anixety D/O NOS ??? ADHD NOS ??? Chronic back pain ??? Major depressive disorder, single episode, unspecified Past Medical History Diagnosis Date ??? Depression ??? GERD (gastroesophageal reflux disease) ??? Hepatitis C ??? HTN (hypertension) Past Surgical History Procedure Laterality Date ??? Revision total hip arthroplasty bilateral for hip AVN ??? Spine surgery ??? Pro upper gi endoscopy, diagnostic Bilateral 08/17/2015 EGD, UPPER GI ENDOSCOPY performed by Trev Hong MD at [facility] ENDOSCOPY Social History Substance Use Topics ??? Smoking status: Former Smoker Packs/day: 0.10 Years: 42.00 Types: Cigarettes Quit date: 09/28/2015 ??? Smokeless tobacco: Former User Comment: STATES THAT HE STOPPED TWO MONTHS AGO 04/2015 ??? Alcohol use 12.6 - 16.2 oz/week 0 - 6 Cans of beer, 21 Standard drinks or equivalent per week Comment: OCC maybe a six pack a week History Drug Use No Allergies Allergen Reactions ??? Morphine Other (See Comments) STATES THAT IT DOES NOT TAKE HIS PAIN AWAY Medications: MAR and/or home medications have been reviewed. Physical Exam: There were no vitals filed for this visit. There is no height or weight on file to calculate BMI. Airway Assessment: Mallampati: II TM distance: >3 FB Neck ROM: full Cardiovascular Assessment: Rate: normal (-) murmur, friction rub, carotid bruit and peripheral edema cardiovascular exam normal Pulmonary Assessment: breath sounds clear to auscultation (+) decreased breath sounds PE comment: distant Dental Assessment: (+) upper dentures and lower dentures Misc Assessment: Patient is wearing No contact(s). IV access: Peripheral line Anesthesia Plan: ASA 3 spinal and general, with a(n) intravenous induction 60yo 96kg male pmh significant for polysubstance abuse, unclear chronic pain history (detailed note from Dr. Lopez appreciated) currently on unclear doses of methadone, hep C cirrhosis, peripheral neuropathy, presenting for left TKA. Given high risk for multiple complications associated with regional procedures including infection, bleeding, and worsening neuropathy will avoid peripheral nerve block as well as spinal anesthesia. Plan GA with standard ASA monitoring, good IV access. Region - Other Informed Consent: Anesthetic plan and risks discussed with patient. Plan discussed with attending and ASSEMBLER FITTER. PAT Staff Documentation: Reason for PAT Contact: ECG Review (possible abnormality) Hx of Anesthesia Problem: Denied on questionnaire. Was Patient Seen in PAT? No Additional/Outside Data Requested? No Findings, Assessment and Action: Mr. Ramos is a 60 y.o. male with hx of polysubstance abuse, chronic pain, and hepatitis C whose ECGwas reviewed prior to total knee arthroplasty surgery with Dr. Gordon Mallory. Screening ECG on 11/14/2015: Sinus rhythm with marked sinus arrhythmia Normal ECG When compared with ECG of 19-AUG-2012 18:07, No significant change was found Confirmed by MD Jacob, Cristian ([id number]) on 11/15/2015 9:15:11 AM Echo 05/17/2014: EF 65%, mild LVH; no significant valve disease; mild pulm HTN (35 mmHg). Per PAT questionnaire: Denies cardiac conditions; able to lie flat; cannot ascend 1 FOS/walk 2 blocks without stopping; unsure if lung problem; HTN; liver disease; daytime fatigue; unsure if has blood disease, on blood thinner, hx cancer; has seen a pain specialist, not on opioids. Dr. Jacinto evaluated him and determined his MACE risk was low with exercise tolerance of =4 METsnoted. Surgeon's preference is for spinal anesthesia. Anesthesia record of 06/01/2009 indicates his methadone dose was 160 mg/day. Dr. Lopez's note of 05/26/2015 describes a long history of polysubstance abuse including [facility] and outlines recommendations for post-op pain management. I will alert the Acute Pain Service ahead of time in case their expertise is requested. Danya Patel, LISA Pre-Admission Testing [phone] documented in this encounter Miscellaneous Notes Addendum Note - Lonnie Aguirre MD - 12/14/2015 8:27 AM EDT Addendum created 12/14/15826 by Lonnie Aguirre MD Anesthesia Review and Sign - Ready for Procedure, Sign clinical note, Visit Navigator Flowsheet section accepted documented in this encounter Plan of Treatment Upcoming Encounters Date Type Specialty Care Team Description 12/11/2021 Appointment Radiology 12/11/2021 Office Visit Orthopaedics Marion Tavera APRN [facility] ER ORTHOPAEDIC SURG [place], [place] [address] (Wo rk) 01/15/2022 Appointment Radiology Stiven Cervantes MD [facility] Medical [facility] er Pulmonary Medici [place], [place] [address] (Wo rk) Scheduled Procedures Name [...] MAR Action Action Date Dose Rate Site ceFAZolin (ANCEF) 1g in dextrose 5% Given 12/13/2015 2:10 PM EDT 2 g 50mL PRN, Starting on Fri12/13/15 at 1410, Until Fri12/13/15 at 1706, Administer over 30 Minutes, Anesthesia Intra-op ePHEDrine 5 mg/mL multi-dose injection Given 12/13/2015 2:40 PM EDT 15 mg PRN, Starting on Fri12/13/15 at 1409, Until Fri12/13/15 at 1706, Anesthesia Intra-op, Routine Given 12/13/2015 2:09 PM EDT 10 mg Given 12/13/2015 2:07 PM EDT 10 mg fentaNYL 50 mcg/mL multi-dose injection Given 12/13/2015 2:00 PM EDT 100 mcg PRN, Starting on Fri12/13/15 at 1400, Until Fri12/13/15 at 1706, Pain, Anesthesia Intra-op, Routine glycopyrrolate (ROBINUL) multi-dose inje ction Given 12/13/2015 2:40 PM EDT 0.4 mg PRN, Starting on Fri12/13/15 at 1440, Until Fri12/13/15 at 1706, Anesthesia Intra-op, Routine HYDROmorphone (DILAUDID) injection Given 12/13/2015 5:01 PM EDT 0.4 mg PRN, Starting on Fri12/13/15 at 1433, Until Fri12/13/15 at 1706, Pain, Anesthesia Intra-op, Routine Given 12/13/2015 4:51 PM EDT 0.4 mg Given 12/13/2015 4:48 PM EDT 0.4 mg ketamine (KETALAR) 10 mg/mL bolus injection Given 12/13/2015 2:0 0 PM EDT 30 mg (Anesthesia) PRN, Starting on Fri12/13/15 at 1400, Until Fri12/13/15 at 1706, Anesthesia Intra-op ketamine (KETALAR) 10 mg/mL Rate/Dose 12/13/2015 4:10 20 mcg/kg/min 11.5 mL/hr injection Change PM EDT CONTINUOUS PRN, Starting on Fri12/13/15 at 1409, Until Fri12/13/15 at 1706, Anesthesia Intra-op, Routine New Bag 12/13/2015 2:09 PM EDT 10 mcg/kg/min 5.8 mL/hr lactated ringers infusion 1,000 mL New Bag 12/13/2015 3:04 PM EDT 1,000 mL, at 100 mL/hr, Intravenous, CONTINUOUS, Starting on Fri12/13/15 at 1115, Until Fri12/13/15 at 2019, Day of Surgery (Day of Procedure) New Bag 12/13/2015 11:15 AM EDT 1,000 mLs 100 mL/hr lidocaine (PF) (XYLOCAINE) 100 mg/5 mL (2 %) Given 6 2:00 PM EDT 60 mg injection PRN, Starting on Fri12/13/15 at 1400, Until Fri12/13/15 at 1706, Anesthesia Intra-op, Routine midazolam (PF) (VERSED) 1 mg/mL multi-dose Given 12/13/2015 1:49 PM EDT 2 mg injection PRN, Starting on Fri12/13/15 at 1349, Until Fri12/13/15 at 1706, Sleep, Anesthesia Intra-op, Routine PHENYLephrine HCl in NS (PF) (PERRY-SYNEPHRINE) Given 2:17 PM EDT 80 mcg 0.8 mg/10 mL (80 mcg/mL) multi-dose injection Syrg PRN, Starting on Fri12/13/15 at 1411, Until Fri12/13/15 at 1706, Anesthesia Intra-op, Routine Given 12/13/2015 2:11 PM EDT 80 mcg propofol (DIPRIVAN) 10 mg/mL bolus injection Given 6 4:38 PM EDT 10 mg (Anesthesia) PRN, Starting on Fri12/13/15 at 1400, Until Fri12/13/15 at 1706, Anesthesia Intra-op Given 12/13/2015 4:34 PM EDT 10 mg Given 12/13/2015 4:30 PM EDT 10 mg rocuronium (ZEMURON) multi-dose injectio n Given 12/13/2015 2:01 PM EDT 40 mg PRN, Starting on Fri12/13/15 at 1401, Until Fri12/13/15 at 1706, Anesthesia Intra-op, Routine tranexamic acid (CYKLOKAPRON) 100 mg/mL Given 12/13/2015 2:48 PM EDT 1,400 mg bolus injection (Anesthesia) PRN, Starting on Fri12/13/15 at 1448, Until Fri12/13/15 at 1706, Anesthesia Intra-op, Routine documented in this encounter Care Teams Food Assembler [employer] Relationship Specialty Start Date End Date Azalia Peña, GEOPHYSICAL DRAFTER PCP - General 11/19/13 03/19/17 documented as of this encounter
--- OUTSIDE RECORDS SUMMARY | 2021-11-30 08:24 | XMS_ITS | Encounter Summary ---
:1955 Author Organization [facility] [place] [address] Care Team Providers Name Role Phone Azalia Peña APRN Primary Care Provider Reason for Visit Reason Comments Follow Up Fracture Lt Ankle FX DOI 06/04/15 Bilateral Knee Pain Rt> Lt Encounter Details Date Type Department Care Team Description 08/29/2015 Office Visit Orthopaedics at [facility] Gordon Mallory Ankle fracture, left [facility] [place] [address] CENTER [phone] ORTHOPAEDICS [place], [place] [address] Social History Tobacco Use Types [...] Sign Reading Time Taken Comments Blood Pressure 121/82 08/29/2015 11:12 AM EDT Pulse 58 08/29/2015 11:12 AM EDT Temperature - - Respiratory Rate - - Oxygen Saturation - - Inhaled Oxygen Concentration - - Weight 91.8 kg (202 lb 6.4 08/29/2015 11:12 AM fully cl othed oz) EDT Height 174 cm (5' 8.5) 08/29/2015 11:12 AM with shoes EDT Body Mass Index 30.32 08/29/2015 11:12 AM EDT documented in this encounter Progress Notes Arcadio Aggarwal PA - 08/30/2015 9:43 AM EDT Subjective: Mahin Ramos is a 60 y.o. right hand-dominant male who returns for follow-up of a left ankle (distal tibia) fracture. The injury occurred 10 weeks ago. He reports no problems with the ankle, and no problems with swelling, numbness, or tingling in his foot. Patient states that he is doing well in terms of the ankle but wants to discuss his up coming TKA surgery with Dr Mallory Patient's medications, allergies, past medical, surgical, social and family histories were reviewed and updated as appropriate. Objective: General: alert, appears stated age and cooperative Gait: slight antalgic gait no assistive devices Left ankle Circulation: well perfused, brisk capillary refill distal to the injury Skin: normal Swelling: present Deformity: There is not an obvious deformity of the ankle Sensation: intact to light touch Imaging X-ray right ankle: no change in fracture site with acceptable alignment and callus formation. Assessment: AssessmentResolving fracture without complication. Plan: Activities as tolerated for the right ankle Discussed TKA for bilateral knees due to AVN with Dr Mallory Patient was seen and evaluated with NIEVES Palmer documented in this encounter Plan of Treatment Upcoming Encounters Date Type Specialty Care Team Description 12/11/2021 Appointment Radiology 12/11/2021 Office Visit Orthopaedics Marion Tavera APRN [facility] DR ORTHOPAEDIC SURG [place], [place] [address] (Wo rk) 01/15/2022 Appointment Radiology Stiven Cervantes MD [facility] Pulmonary Medici [place]elly [place], [place] [address] (Wo rk) Scheduled Procedures Name Priority Associated Diagnoses Date/Time DEBRIDEMENT SKIN, SUBCU, MUSCLE, R great toe amp utation, wound LOWER EXTREMITY (WRVU 2.7) closure MODIFIER WOUND VAC R great toe amputation, wound closure documented as of this encounter Visit Diagnoses Diagnosis Ankle fracture, left Unspecified closed fracture of ankle documented in this encounter Care Teams Car Checker Relationship Specialty Start Date End Date Azalia Peña APRN PCP - General 11/19/13 03/19/17 documented as of this encounter
--- OUTSIDE RECORDS SUMMARY | 2021-11-30 08:24 | XMS_ITS | Encounter Summary ---
:1955 Author Organization [facility] [place] [address] Care Team Providers Name Role Phone Azalia Peña APRN Primary Care Provider Reason for Visit Reason Comments Follow-up Encounter Details Date Type Department Care Team Description 08/09/2015 Office Visit Gastroenterology at [facility] Kate Tilley Chronic hepatitis C without hepatic coma; [facility] Jenni Parra APRN Cirrhosis of liver without ascites, unsp [place] [address] [facility] [phone] [place] [address] Social History Tobacco Use Types Packs/Day Years Used Date Former Smoker Cigarettes 0.1 42 Smokeless Tobacco: Former User Comments: STATES THAT HE STOPPED TWO Fri AGO 04/2015 Alcohol Use Standard Drinks/Week Comments Yes 17.5 (1 standard drink = 0.6 oz pure alc ohol) [facility] Alcohol Habits Answer Date Recorded How often [...] Sign Reading Time Taken Comments Blood Pressure 128/77 08/09/2015 11:12 AM EDT Pulse 60 08/09/2015 11:12 AM EDT Temperature - - Respiratory Rate - - Oxygen Saturation - - Inhaled Oxygen - - Concentration Weight 96 kg (211 lb 11.2 08/09/2015 11:12 Weighed with shoes. oz) AM EDT Height 175.3 cm (5' 9) 08/09/2015 11:12 AM EDT Body Mass Index 31.26 08/09/2015 11:12 AM EDT documented in this encounter Patient Instructions Patient InstructionsKate Tilley APRN - 08/09/2015 11:37 AM EDT - Schedule an upper endoscopy today. documented in this encounter Progress Notes Kate Tilley APRN - 08/09/2015 11:18 AM EDT Hepatology Follow Up Note Patient: Mahin Ramos Gender: male : 1955 Provider: Kate Tilley NP Referring Physician: AZALIA PEÑA APRN Mahin Ramos is a 59 y.o. 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 Was previously seen by Caitlin Dowling and was previously treated with 48 weeks of Peg/Ribavin with viral relapse. Treatment was deferred when he was last seen due to mood and substance abuse issues. He has recently been feeling depressed and mad. He states he is in constant pain, which affects his mood. 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 He states he is scheduled for surgery in September. He has been drinking alcohol intermittently to help with the pain. He drinks 1-2 times/ week, normally a six pack at a time. Last drank alcohol yesterday. No recreational drug use. Does not smoke cigarettes regularly - maybe a couple puffs occasionally. Current problem list: ?? Chronic hepatitis C [...] Gastrointestinal: Negative for nausea, vomiting and abdominal pain. + diarrhea, no blood, not black Current Outpatient Prescriptions Medication Sig Dispense Refill ??? traMADol (ULTRAM) 50 mg Tablet Take 100 mg by mouth every 6 hours as needed for Pain. ??? furosemide (LASIX) 40 mg Tablet Take 1 tablet by mouth daily. ??? gabapentin (NEURONTIN) 600 mg Tablet Take 2 tablets by mouth 3 times daily. ??? acetaminophen (TYLENOL) 500 mg Tablet Take 1,000 mg by mouth 2 times daily. ??? potassium chloride (KLOR-CON) 20 mEq Packet Take 20 mEq by mouth daily. 0 ??? ibuprofen (ADVIL;MOTRIN) 800 mg Tablet Take 800 mg by mouth as needed. ??? DULERA 200-5 mcg/actuation HFA Aerosol Inhaler Inhale 1 puff into the lungs as needed. 0 ??? omeprazole (PRILOSEC) 40 mg Capsule, Delayed Release(E.C.) Take 40 mg by mouth daily. 0 ??? buPROPion (WELLBUTRIN XL) 300 mg 24 hr tablet take 1 tablet by mouth every morning 30 tablet 5 ??? diaZEPam (VALIUM) 5 mg tablet Take 1 tablet by mouth 3 times daily as needed for Anxiety. 90 tablet 1 ??? multivitamin (THERAGRAN) tablet Take 1 tablet by mouth daily. ??? atenolol (TENORMIN) 50 mg tablet Take 1 tablet by mouth 2 times daily. 90 tablet 3 ??? amlodipine (NORVASC) 5 mg tablet Take 1 tablet by mouth daily. 90 tablet 3 No current facility-administered medications for this visit. Allergies: Allergies Allergen Reactions ??? Morphine Other (See Comments) STATES THAT IT DOES NOT TAKE HIS PAIN AWAY Social Hx: Lives with . He has been drinking alcohol intermittently to help with the pain. He drinks 1-2 times/ week, normally a six pack at a time. Last drank alcohol yesterday. No recreational drug use. Does not smoke cigarettes regularly - maybe a couple puffs occasionally. Objective: Filed Vitals: 08/09/15 1112 BP: 128/77 Pulse: 60 Height: 175.3 cm (5' 9) Weight: 96.026 kg (211 lb 11.2 oz) Body mass index is 31.25 kg/(m^2). Physical Exam GEN: Healthy-appearing in no acute distress. Appears stated age. Cooperate and answers questions appropriately. Accompanied by , arrived to appointment in wheelchair. SKIN: No rashes or abnormal lesions. No palmar erythema, no spider nevi NECK: No adenopathy and no thyromegaly. HEENT: Nonicteric sclera. PERRL, EOMI EXT: No cyanosis, clubbing or edema. Lab Results Component Value Date WBC 10.6* 08/09/2015 HGB 14.9 08/09/2015 HCT 44.8 08/09/2015 MCV 94.7* 08/09/2015 PLATELET 326 08/09/2015 Recent Labs 08/09/15 1104 INR 1.1 Lab Results Component Value Date ALT 15 08/09/2015 AST 18 08/09/2015 ALKPHOS 122* 08/09/2015 BILITOT 0.6 08/09/2015 Chemistry Component Value Date/Time NA 142 08/09/2015 1104 K 4.6 08/09/2015 1104 CL 97* 08/09/2015 1104 CO2 31 08/09/2015 1104 BUN 9* 08/09/2015 1104 CREATININE 1.20 08/09/2015 1104 Component Value Date/Time CALCIUM 9.6 08/09/2015 1104 ALKPHOS 122* 08/09/2015 1104 AST 18 08/09/2015 1104 ALT 15 08/09/2015 1104 BILITOT 0.6 08/09/2015 1104 Abdominal ultrasound 08/09/15: ??Ultrasound - Abdomen Complete - Summary ??Examination is limited secondary to overlying bowel gas. ??1. Coarse hepatic echotexture with minimally irregular capsular ??contour, consistent with cirrhosis. ??2. No focal intrahepatic masses identified. ??3. Multiple hyperechoic, well-circumscribed lesions within the ??spleen likely representing Gamna Ross Bodies or hemangiomas. ??4. The spleen is of normal size and no ascites is seen. ??Ultrasound - Vascular evaluation - Summary ??1. Slow flow is noted within the main portal vein, with a velocity of ??11.4 cm/sec, which may be suggestive of early portal ??hypertension. ??2. The hepatic veins, portal veins and hepatic artery are patent ??with normal directional flow. Assessment and Plan: Mr. Ramos is a 59 y.o. man with Cirrhosis from Hepatitis C who had viral relapse after his last peg interferon and ribavirin therapy. He has been struggling with pain and drinking alcohol occasionally to cope with the pain. 1. Cirrhosis. Well compensated with no complications. We discussed that drinking alcohol can cause progression of scarring and discussed other ways to deal with the pain he is having. He states he has surgery planned in the next few months, which should help with his pain in the long run. 2. Hepatitis C. GT 2. Since he is currently drinking alcohol regularly, insurance will not cover themedications while he is drinking. He will need to be sober for 6 months prior to treatment, which hebelieves he can do. He will stop drinking alcohol now, and plan to follow up in 6 months to discuss starting treatment. Plan to do 2-3 random urine alcohol levels in the interim - will place standing orders at the labs. Once he has been sober I would recommend treating his Hep C with 12 weeks of Sofosbuvir and Daclatasvir. 3. HCC surveillance. His ultrasound today was negative for lesions, he should have imaging of his liver every 6 months. Plan to follow up in 6 months with repeat U/S along with appointment. 4. Portal Hypertension. Last upper endoscopy was done in 01/2013 and did not show any varices, although there was a large amount of food still in the stomach. Plan to schedule follow up EGD today to assess for varices. 5. Alcohol use. Large part of today's discussion was about alcohol use, as discussed above. Encouraged patient to stop drinking. Will plan to see him back in six months for ultrasound, appt and labs. Kate Tilley APRN Section of Gastroenterology [place] [address] documented in this encounter Plan of Treatment Upcoming Encounters Date Type Specialty Care Team Description 12/11/2021 Appointment Radiology 12/11/2021 Office Visit Orthopaedics aMrion Tavera APRN [facility] ORTHOPAEDIC SURG [place], [place] [address] (Wo rk) 01/15/2022 Appointment Radiology Stiven Cervantes MD [facility] Pulmonary Medici [place], [place] [address] (Wo rk) Scheduled Orders Name Type Priority Associated Diagnoses Order S chedule UPPER GI ENDOSCOPY Procedures Routine Chronic hepatitis C Or dered: 08/09/2015 without hepatic coma Scheduled Procedures Name Priority Associated Diagnoses Date/Time DEBRIDEMENT SKIN, SUBCU, MUSCLE, R great toe amp utation, wound LOWER EXTREMITY (WRVU 2.7) closure MODIFIER WOUND VAC R great toe amputation, wound closure documented as of this encounter Results Prothrombin Time (06/13/2016 3:05 PM EST) athologist Signature PT 13.7 12.0 - 15.0 [facility] LABORATORY Comment: An INR <2.0 [...] linical circumstances. INR 1.0 0.9 - 1.1 [facility] Specimen Anatomical Collection Method Collection Time Receive d Time (Source) Location / / Volume Laterality Blood specimen 06/13/2016 3:05 PM 017 3:10 (specimen) EST PM EST Resulting Agency Comment Spec In Lab James Aiken MD HEMATOLOGY ORDERABLES Performing Organization Address City/State/ZIP [place] [address] Comprehensive metabolic panel (non-fasting) (06/13/2016 3:05 PM EST) athologist Signature Glucose Lvl 114 65 - 199 [facility] mg/dL [facility] Comment: Diabetes: >=200 mg/dL plus symp toms BUN 14 10 - 20 mg/dL [facility] Creatinine 1.14 0.80 - 1.50 mg/dL [facility] Comment: Please note that the pediatric reference intervals supplied above were not validated at [facility]. Results from pediatri c patients should be interpreted in conjunction to the patient's age, height and muscle mass. Sodium 141 135 - 145 mmol/L [facility] Potassium 4.3 3.5 - 5.0 mmol/L [facility] Comment: Please note: ??Patients with WBC >100,00 0 may have falsely elevated Potassium levels. ??For accurate Potassium quantif ication in these patients send serum separator tube (gold top) for subsequent determinations. ??Contact the Clinical Chemistry Laboratory if there are any qu estions. Chloride 98 98 - 107 mmol/L [facility] CO2 28 22 - 31 mmol/L [facility] Anion Gap 15 5 - 15 mmol/L [facility] Calcium 10.1 8.5 - 10.5 mg/dL [facility] Total Protein 7.6 6.1 - 8.0 gm/dL [facility] Albumin 4.5 3.2 - 5.2 gm/dL [facility] AST 20 0 - 39 unit/L [facility] ALT 19 0 - 55 unit/L [facility] Alk Phos 102 40 - 120 unit/L [facility] Total Bilirubin 0.3 0.2 - 1.3 mg/dL [facility] Bili, Direct 0.1 0.0 - 0.3 mg/dL [facility] Estimated GFR >60 >=60 [facility] Comment: This estimated GFR [...] the following links into your internet browser. [email or web address] Specimen Anatomical Collection Method Collection Time Receive d Time (Source) Location / / Volume Laterality Blood specimen 06/13/2016 3:05 PM 017 3:10 (specimen) EST PM EST Resulting Agency Comment Spec In Lab James Aiken MD CHEMISTRY ORDERABLES Performing Organization Address City/State/[place] [address] documented in this encounter Visit Diagnoses Diagnosis Chronic hepatitis C without hepatic coma Cirrhosis of liver without ascites, unsp ecified hepatic cirrhosis type documented in this encounter Care Teams Distance Learning Coordinator Relationship Specialty Start Date End Date Azalia Peña APRN PCP - General 11/19/13 03/19/17 documented as of this encounter
--- OUTSIDE RECORDS SUMMARY | 2021-11-30 08:24 | XMS_ITS | Encounter Summary ---
:1955 Author Organization [facility] [address] Care Team Providers Name Role Phone Azalia Peña APRN Primary Care Provider Encounter Details Date Type Department Care Team Description 11/16/2015 Telephone Orthopaedics at [facility] Raghu Jacinto, [facility] [place] [address] [facility] [phone] ORTHOPAEDIC SURG [place], [place] [address] (Wo rk) Social History Tobacco [...] Miscellaneous Notes Telephone Encounter - Carol Ann Ramon RN - 11/16/2015 10:28 AM EDT Telephone Note Responsible Provider: [place] Caller: Dr. Hernadez DPM Reason for call: Dr. Hernadez call to report that he saw Mr. Ramos today in his office for a right plantar ulcer below the 5th metatarsal head that is down to the dermis. Dr. Hernadez is treating theulcer with offloading and an Abx ointment. Patient is to follow up with him in 1 week. Assessment: Right foot ulcer Instructions/Plan: Instructed Dr. Hernadez would get his message to Dr. Jacinto. documented in this encounter Plan of Treatment Upcoming Encounters Date Type Specialty Care Team Description 12/11/2021 Appointment Radiology 12/11/2021 Office Visit Orthopaedics Marion Tavera APRN [facility] DR ORTHOPAEDIC SURG [place], [place] [address] (Wo rk) 01/15/2022 Appointment Radiology Stiven Cervantes MD [facility] Pulmonary Medici [place], [place] [address] (Wo rk) Scheduled Procedures Name Priority Associated Diagnoses Date/Time DEBRIDEMENT SKIN, SUBCU, MUSCLE, R great toe amp utation, wound LOWER EXTREMITY (WRVU 2.7) closure MODIFIER WOUND VAC R great toe amputation, wound closure documented as of this encounter Visit Diagnoses Not on filedocumented in this encounter Care Teams Warp Tier Relationship Specialty Start Date End Date Azalia Peña APRN PCP - General 11/19/13 03/19/17 documented as of this encounter
--- OUTSIDE RECORDS SUMMARY | 2021-11-30 08:24 | XMS_ITS | Encounter Summary ---
:1955 Author Organization [facility] [place] [address] Care Team Providers Name Role Phone Azalia Peña APRN Primary Care Provider Encounter Details Date Type Department Care Team Description 08/29/2015 Hospital Encounter XRay at [facility] Gordon Mallory Ankle fracture, left [address] [facility] [address] [place], [place] [address] [place] [address] [place] [address] Social History Tobacco Use Types Packs/Day Years [...] 12/11/2021 Office Visit Orthopaedics Marion Tavera APRN [facility] MEDICAL [facility] ER DR ORTHOPAEDIC SURG [place], [place] [address] (Wo rk) 01/15/2022 Appointment Radiology Stiven Cervantes MD [facility] Medical [facility] er Pulmonary Medici nelly [place], [place] [address] (Wo rk) Scheduled Procedures Name Priority Associated Diagnoses Date/Time DEBRIDEMENT SKIN, SUBCU, MUSCLE, R great toe amp utation, wound LOWER EXTREMITY (WRVU 2.7) closure MODIFIER WOUND VAC R great toe amputation, wound closure documented as of this encounter Procedures Procedure Name Priority Date/Time Associated Diagnosis Comme nts XR ANKLE MIN 3 Routine 08/29/2015 10:05 AM Ankle fracture, lef t Results for this VIEWS LEFT EDT procedure are i n the results section. documented in this encounter Results XR Ankle Minimum 3 Views Left (GENERIC) (08/29/2015 10:05 AM EDT) Anatomical Region Laterality Modality Ankle Left Digital Radiography Specimen (Source) Anatomical Location Collection Method / Collectio n Time Received Time / Laterality Volume Impressions 08/29/2015 11:35 AM EDT IMPRESSION: In comparison to the prior examination, there is continued interval healing of a nondisplaced intra-articular fracture of the medial malleolus. Bony alignment is unchanged. Narrative 08/29/2015 11:35 AM EDT EXAMINATION: XR ANKLE MINIMUM 3 VIEWS LEFT CLINICAL HISTORY: left ankle pain TECHNIQUE: AP, lateral and oblique. COMPARISON: August 04, 2015 and June 13, 2015. FINDINGS: In comparison to the prior examination, there is continued interval healing of a nondisplaced intra-articular fracture of the medial malleolus. Bony alignment is unchanged. Ankle mortise congruent. Diff use osteopenia is identified. Moderate size plantar and posterior calcaneal spu rs are identified. Procedure Note Andrew Whaley MD - 08/29/2015Formatti ng of this note might be different from the original. EXAMINATION: XR ANKLE MINIMUM 3 VIEWS LE FT CLINICAL HISTORY: left ankle pain TECHNIQUE: AP, lateral and oblique. COMPARISON: August 04, 2015 and June 13, 2015. FINDINGS: In comparison to the prior examination, there is continued interval healing of a nondisplaced intra-articular fracture of the medial malleolus. Bony alignment is unchanged. Ankle mortise congruent. Diff use osteopenia is identified. Moderate size plantar and posterior calcaneal spu rs are identified. IMPRESSION IMPRESSION: In comparison to the prior examination, there is continued interval healing of a nondisplaced intra-articular fracture of the medial malleolus. Bony alignment is unchanged. Gordon Mallory MD IMG DX ORDERABLES documented in this encounter Visit Diagnoses Diagnosis Ankle fracture, left Unspecified closed fracture of ankle documented in this encounter Care Teams Feeder Operator Relationship Specialty Start Date End Date Azalia Peña, SQUARE CUTTER PCP - General 11/19/13 03/19/17 documented as of this encounter
--- OUTSIDE RECORDS SUMMARY | 2021-11-30 08:24 | XMS_ITS | Encounter Summary ---
:1955 Author Organization [facility] Address [address] [place] [address] Care Team Providers Name Role Phone Azalia Peña APRN Primary Care Provider Reason for Visit Reason Comments Pre-op Exam R TKA Encounter Details Date Type Department Care Team Description 11/14/2015 Office Visit Orthopaedics at [facility] [place], Preop examination; [facility] Raghu Thompson MD Avascular necrosis bilateral knees; [facility] Chronic pain of left knee; [place] [address] [facility] Polysubstance abuse; [phone] ORTHOPAEDIC Chronic hepatit is C without hepatic coma; SURGERY Leukocytosis, unspecified type [place] [id number] Social History Tobacco Use Types Packs/Day Years [...] Sign Reading Time Taken Comments Blood Pressure 114/75 11/14/2015 1:25 PM EDT Pulse 69 11/14/2015 1:25 PM EDT Temperature - - Respiratory Rate - - Oxygen Saturation 95% 11/14/2015 1:25 PM EDT Inhaled Oxygen Concentration - - Weight 98.7 kg (217 lb 9.6 11/14/2015 1:25 PM fully kirill thed oz) EDT Height 174 cm (5' 8.5) 11/14/2015 1:25 PM with shoes EDT Body Mass Index 32.6 11/14/2015 1:25 PM EDT documented in this encounter H&P Notes Raghu Jacinto MD - 11/14/2015 1:39 PM EDT Images from the original note were not included. CC: Mahin Ramos is a 60 y.o. male with the following problems and medications that is being seen in the clinic for consultation at the request of his surgeon Dr. Gordon Mallory for preoperative riskstratification and management recommendations in anticipation of LEFT total knee arthroplasty for avascular necrosis with symptomatic arthritis and tibial plateau fracture noted on MRI. HPI - Pain - Location - Left knee more than other Quality - aching, Onset - gradual, Duration - about a few years Intensity - moderate to severe, Aggravating factors - standing, walking, stepping, Alleviating factors - NSAID, APAP, opiate, rest, topical, PT, did get IA injections with very transient re lief Associated - does note locking up, other joint - has had bilateral hip replacements and has pain in other knee but not as bad. Has lost weight intentionally in past but lately gained some back. The patient has history of polysubstance abuse and required to be managed in the methadone clinic for opiate addiction. He also has chronic hepatitis C with cirrhosis. He relates to prior treatment failures for his hep C and is pursuing a new third option after recovery from the current surgeries. Patient Active Problem List Diagnosis Code ??? [...] K74.60 ??? Avascular necrosis of bone M87.00 Current Outpatient Prescriptions Medication Sig Dispense Refill ??? aspirin 325 mg Tablet Take 325 mg by mouth as needed for Pain. ??? methadone (DOLOPHINE) 10 mg Tablet Take 10 mg by mouth as needed for Pain. ??? mirtazapine (REMERON) 15 mg Tablet take 1 tablet by mouth at bedtime 0 ??? DULERA 100-5 mcg/actuation HFA Aerosol Inhaler inhale 2 puffs by mouth twice a day 0 ??? tamsulosin (FLOMAX) 0.4 mg Capsule, Sust. Release 24 hr 0 ??? hydrOXYzine (ATARAX) 50 mg Tablet take 1 tablet by mouth three times a day if needed 0 ??? traMADol (ULTRAM) 50 mg Tablet Take 100 mg by mouth every 6 hours as needed for Pain. ??? furosemide (LASIX) 40 mg Tablet Take 1 tablet by mouth daily. ??? gabapentin (NEURONTIN) 600 mg Tablet Take 2 tablets by mouth 3 times daily. ??? acetaminophen (TYLENOL) 500 mg Tablet Take 1,000 mg by mouth as needed. ??? potassium chloride (KLOR-CON) 20 mEq Packet Take 20 mEq by mouth daily. 0 ??? ibuprofen (ADVIL;MOTRIN) 800 mg Tablet Take 800 mg by mouth as needed. ??? omeprazole (PRILOSEC) 40 mg Capsule, Delayed Release(E.C.) Take 40 mg by mouth daily. 0 ??? buPROPion (WELLBUTRIN XL) 300 mg 24 hr tablet take 1 tablet by mouth every morning 30 tablet 5 ??? multivitamin (THERAGRAN) tablet Take 1 tablet by mouth daily. ??? atenolol (TENORMIN) 50 mg tablet Take 1 tablet by mouth 2 times daily. 90 tablet 3 ??? amlodipine (NORVASC) 5 mg tablet Take 1 tablet by mouth daily. 90 tablet 3 No current facility-administered medications for this visit. Social History Occupational History ??? Not on file. Social History Main Topics ??? Smoking status: Current Some Day Smoker Packs/day: 0.10 Years: 42.00 Types: Cigarettes Last attempt to quit: 04/29/2015 ??? Smokeless tobacco: Former User Comment: STATES THAT HE STOPPED TWO MONTHS AGO 04/2015 ??? Alcohol use 12.6 - 16.2 oz/week 0 - 6 Cans of beer, 21 Standard drinks or equivalent per week Comment: OCC maybe a six pack a week ??? Drug use: No ??? Sexual activity: Not on file Family History Problem Relation Age of Onset ??? Cancer Father ??? Osteoarthritis Mother ??? Cancer Paternal Uncle ??? Cancer Paternal Grandmother Review of Systems: Review of Systems Constitutional: Negative for chills, diaphoresis and fever. Does sweat when he is in pain or when he is hot HENT: Negative for nosebleeds, rhinorrhea and sore throat. Eyes: Negative for photophobia and visual disturbance. Respiratory: Negative for cough, shortness of breath and wheezing. Cardiovascular: Positive for leg swelling. Negative for chest pain and palpitations. Gastrointestinal: Negative for abdominal pain, anal bleeding, blood in stool and constipation. Endocrine: Negative for cold intolerance, heat intolerance, polydipsia, polyphagia and polyuria. Genitourinary: Negative for dysuria, frequency and hematuria. Musculoskeletal: Positive for back pain, gait problem and joint swelling. Had disc prolapse and surgery. Skin: Positive for rash. Negative for pallor. Does have spots of rash on his forearms that come and go. They are not itchy. Has a wound on the bottom of his right foot. Allergic/Immunologic: Positive for environmental allergies. Negative for immunocompromised state. May have seasonal allergies but not a bother. Neurological: Negative for tremors, syncope, facial asymmetry, light-headedness and headaches. Has neuropathy and takes gabapentin and that causes numbness in his feet. Hematological: Negative for adenopathy. Bruises/bleeds easily. Psychiatric/Behavioral: Positive for dysphoric mood. Negative for confusion and decreased concentration. The patient is nervous/anxious. Attributes anxiety and depressed mood to lack of activity Allergies: Allergies Allergen Reactions ??? Morphine Other (See Comments) STATES THAT IT DOES NOT TAKE HIS PAIN AWAY Physical Exam: Last Set of Vitals and Range over past 24 hours: Last value Range last 24 hrs Temperature Temp: -- Heart Rate Heart Rate: 69 Heart Rate: [69-75] Blood Pressure BP: 114/75 BP: (114)/(75) Respiratory Rate Resp: -- SpO2 SpO2: 95 % SpO2: [95 %-96 %] Body mass index is 32.6 kg/(m^2). Height: 174 cm (5' 8.5) (with shoes) Physical Exam Constitutional: He is oriented to person, place, and time. He appears well- developed. No distress. HENT: Head: Normocephalic and atraumatic. Eyes: Conjunctivae are normal. No scleral icterus. Neck: Neck supple. No tracheal deviation present. Cardiovascular: Normal rate, regular rhythm and normal heart sounds. Exam reveals no gallop and no friction rub. No murmur heard. Pulmonary/Chest: Effort normal and breath sounds normal. No stridor. No respiratory distress. He hasno wheezes. He has no rales. Abdominal: Soft. Bowel sounds are normal. He exhibits no distension. There is no tenderness. There is no rebound and no guarding. Musculoskeletal: He exhibits edema. Left knee antalgic when transferring chair to bed. Has mild effusion with extension 5 shy of full. Trace pitting edema in both legs. Right foot with ulcer over head of 5th MTP. Has callus formation there with blood tinged central ulceration. Has flexed first DIP with bulbous bony induration there. Has varicose veins present. Has callus over plantar 1st toe also. Neurological: He is alert and oriented to person, place, and time. No cranial nerve deficit. He exhibits normal muscle tone. Coordination normal. Fine tremors of RUE outstretched. Skin: Skin is warm and dry. He is not diaphoretic. He has 4-5 mm violaceous lesions over his forearm. Lab Results Component Value Date WBC 13.4 (H) 11/14/2015 RBC 4.47 (L) 11/14/2015 HGB 14.0 11/14/2015 HCT 42.1 11/14/2015 MCV 94.2 (H) 11/14/2015 MCH 31.3 11/14/2015 MCHC 33.3 11/14/2015 PLATELET 301 11/14/2015 RDWCV 13.5 11/14/2015 Lab Results Component Value Date NA 140 11/14/2015 K 4.6 11/14/2015 CL 99 11/14/2015 CO2 29 11/14/2015 BUN 12 11/14/2015 CREATININE 1.06 11/14/2015 GLUCOSE 101 11/14/2015 CALCIUM 9.1 11/14/2015 Lab Results Component Value Date AST 18 08/09/2015 ALT 15 08/09/2015 ALKPHOS 122 (H) 08/09/2015 BILITOT 0.6 08/09/2015 BILIDIR 0.1 08/09/2015 Lab Results Component Value Date PT 14.0 08/09/2015 INR 1.1 08/09/2015 Lab Results Component Value Date CRP 19.7 11/14/2015 SEDRATE 12 11/14/2015 Estimated Creatinine Clearance: 83 mL/min (based on Cr of 1.06). EKG (image reviewed):Sinus with sinus arrhythmia, has prior noted septal Q waves. Echocardiogram May 2014 ([place]) comments/summary: ??Mild LVH, normal LV function, trivial MR and TR, mild pulmonary HTN (PASP 35 mm Hg) MRI reports of both knees in Scan docs reviewed EGD August 2015 - mild portal hypertensive gastropathy US abdomen - July 2015 Examination is limited secondary to overlying bowel gas. 1. Coarse hepatic echotexture with minimally irregular capsular contour, consistent with cirrhosis. 2. No focal intrahepatic masses identified. 3. Multiple hyperechoic, well-circumscribed lesions within the spleen likely representing Gamna Abhijeet Bodies or hemangiomas. 4. The spleen is of normal size and no ascites is seen. Ultrasound - Vascular evaluation - Summary 1. Slow flow is noted within the main portal vein, with a velocity of 11.4 cm/sec, which may be suggestive of early portal hypertension. 2. The hepatic veins, portal veins and hepatic artery are patent with normal directional flow. A/P 1. Preop examination 2. Avascular necrosis bilateral knees 3. Chronic pain of left knee 4. Polysubstance abuse 5. Chronic hepatitis C without hepatic coma 6. Leukocytosis, unspecified type Chronic WBC elevation of ?etiology. Has high HCV titer. Reviewed most recent GI note per LISA Fitch dated August 08 2013. He has right foot ulceration with the elevated CRP. The CRP and sed rate are currently higher than prior levels (remote CRP was 8.7 in August 2014 and sed rate 9). The etiology of this and the elevated WBC is uncertain. He did have trace +ve cryoglobulins in August 2014. Skin lesions noted could represent vasculitis from his chronic hep C and the elevated inflammatory marker ofC-reactive protein could be a response to his hep C. The notes per rheumatology and dermatology fromAugust and September 2014 were reviewed. In light of the normal complement levels at that time vasculitis/mo noneuritis multiplex was considered a less likely cause of his neuropathic symptoms. Possibility of Sjogren's was raised by the positive SSB antibody as well as the mildly positive HUANG and rheumatoid factor. This as a cause of his peripheral neuropathy was also entertained. 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 This was suspected to be associated with his alcohol abuse, cryoglobulins, Sjogren's or vitamin deficiency. Demonstrated lack of insight and awareness with regards to prior counseling regards his hepatitis C and its manifestations and the treatment options as well as the importance of abstinence from alcohol. His was present and was supportive and did demonstrate insight and knowledge regards this as well as awareness regards prior information provided. However were uncertain regards the pending plan. They asumed the surgery was inAugust. He also inquired regards the plan as he believed the left knee replacement should be pursuedinitially rather than the currently planned other knee replacement. He anticipates improved pain andability to walk outdoors once he heals from his knee replacement. He is bothered more by the left knee and would like that done first. He knows the imaging is worse on the other knee. Seeing podiatrdiogo [place] - 15 November. Major Risk Factor per the Revised Cardiac Risk Index (Bold if present) - There is no history of CAD,CHF, CVA or TIA, DM2 on insulin, or a Creatinine >2 Risk diagnosis for MACE (major adverse cardiovascular event = Myocardial infarction, pulmonary edema, ventricular fibrillation, primary cardiac arrest, or complete heart block.) : Low <1% . The patient describes a functional status of equal to 4METs (self care and some walking outside his house) and based on the ACC/AHA 2014 guideline no further cardiovascular testing is indicated. ARISCAT/CANET Score - estimates the risk of postoperative pulmonary complications as being low ~3.5%. STOP BANG Score - low risk for YASMINE. Per the ACS NSQIP calculator I estimated the following. 35 minutes of this 50 minute encounter was spent in counseling. I reviewed with him the risk factors for avascular necrosis include alcohol abuse, chronic hepatitis C, vasculitis and chronic inflammation. I reiterated the importance of cessation from alcohol. I noted that the calculator is limited with regards the estimation of risk as it does not account for his underlying comorbidities appropriately. Plan: Review the plan of care per podiatry evaluation - I have given the patient and his my cards with the telephone number and the fax number so that the podiatric office note could be sent for my review. Communicate with Dr. Mallory regards the laterality of the planned procedure. Postoperative management recommendations: Dulera 100-5 micrograms 2 puffs inhaled twice a day Mirtazapine 15 mg by mouth at bedtime Flomax 0.4 mg by mouth at bedtime Furosemide 40 mg by mouth daily Gabapentin 1200 mg by mouth 3 times a day Potassium chloride 20 mEq by mouth daily Atarax 50 mg by mouth 3 times a day when necessary severe pruritus Prilosec 40 mg by mouth daily Wellbutrin XL 300 mg by mouth at bedtime Atenolol 50 mg by mouth twice a day hold if systolic blood pressure less than 110 or heart rate lessthan 60 Amlodipine 5 mg by mouth daily hold if systolic blood pressure less than 120 May use tramadol 50-100 mg by mouth every 4 hours when necessary moderate to severe pain documented in this encounter Plan of Treatment Upcoming Encounters Date Type Specialty Care Team Description 12/11/2021 Appointment Radiology 12/11/2021 Office Visit Orthopaedics Marion Tavera APRN [facility] DR ORTHOPAEDIC SURG [place], [place] [address] (Wo rk) 01/15/2022 Appointment Radiology Stiven Cervantes MD [facility] Pulmonary Medici [place], [place] [address] (Wo rk) Scheduled Procedures Name Priority Associated Diagnoses Date/Time DEBRIDEMENT SKIN, SUBCU, MUSCLE, R great toe amp utation, wound LOWER EXTREMITY (WRVU 2.7) closure MODIFIER WOUND VAC R great toe amputation, wound closure documented as of this encounter Visit Diagnoses Diagnosis Preop examination Preoperative examination, unspecified Avascular necrosis bilateral knees Aseptic necrosis of bone, site unspecifi ed Chronic pain of left knee Pain in joint, lower leg Polysubstance abuse Other, mixed, or unspecified nondependen t drug abuse, unspecified Chronic hepatitis C without hepatic coma Leukocytosis, unspecified type documented in this encounter Care Teams Business Development Sales Executive Relationship Specialty Start Date End Date Azalia Peña APRN PCP - General 11/19/13 03/19/17 documented as of this encounter
--- OUTSIDE RECORDS SUMMARY | 2021-11-30 08:24 | XMS_ITS | Encounter Summary ---
:1955 Author Organization [facility] [place] [address] Care Team Providers Name Role Phone Azalia [...] Expiration Date Visits Requ ested Visits Authorized [id number] 1 1 Encounter Details Date Type Department Care Team Description 12/13/2015 Surgery Main Operating Room Davide Mallory, TO DORA KNEE ARTHROPLASTY Louisa Wright MD (WRVU 20.72) [facility] [place] [address] [place], [place] [id number] [phone] (Wo rk) Social History Tobacco Use Types [...] Sign Reading Time Taken Comments Blood Pressure 146/80 12/13/2015 11:03 AM EDT Pulse 52 12/13/2015 11:03 AM EDT Temperature 37 ??C (98.6 ??F) 12/13/2015 11:03 AM EDT Respiratory Rate 12 12/13/2015 11:03 AM EDT Oxygen Saturation 95% 12/13/2015 11:03 AM EDT Inhaled Oxygen Concentration - - Weight 96.2 kg (212 lb) 12/13/2015 11:03 AM EDT Height 175.3 cm (5' 9) 12/13/2015 11:03 AM EDT Body Mass Index 31.31 12/13/2015 11:03 AM EDT documented in this encounter Discharge Summaries Ced Medina APRN - 12/14/2015 3:12 PM EDT Discharge Summary Patient Name: Mahin Ramos Patient Age: 60 y.o. Language: [place] R[place] Race: White Ethnicity: Not nor Admit date: 12/13/2015 Discharge date and time: 12/14/2015 Attending Physician: Davide Mallory MD Discharge Physician: Davide Mallory MD Follow-up Recommendations for Providers: See discharge instructions for additional details. Future Appointments Date Time Provider Department Center 12/20/2015 1:45 PM Renata Lehman APRN [facility] 01/16/2016 12:50 PM [facility] DX ROOM 1 Xray [facility] 01/16/2016 1:50 PM Davide Mallory MD [facility] 3C [facility] Inpatient Provider Contact Information: Davide Mallory MD Orthopedics: [phone] After hours and weekends, call [facility] Lead Massage Therapist, , and have the Orthopedic resident paged. [...] Weight: Wt Readings from Last 1 Encounters: 12/13/15 96.2 kg (212 lb) Height: Ht Readings from Last 1 Encounters: 12/13/15 175.3 cm (5' 9) HC: HC Readings [...] bowel movement. You can also take an alqv-tjr-abcauat medication, Miralax if needed to combat constipation. [...] You will have follow-up appointments at [facility] as indicated below in Future Appointment and Orders. 2. You will need to have x-rays prior to your follow-up appointment on 01/16/2016. Please come to Radiology, desk 3T, 1 hour BEFORE that appointment for those x-rays. Future Appointments Date Time Provider Department Center 12/20/2015 1:45 PM Renata Lehman APRN [facility] 01/16/2016 12:50 PM [facility] DX ROOM 1 Xray [facility] 01/16/2016 1:50 PM Davide Mallory MD [facility] [address] [place] [address] CLIN If you have questions or concerns: Friday through Friday, 8 AM - 5 PM, please call Davide Marlow MD's office at . If it is after 5 PM, the weekend, or holidays, please call and ask to speak with the Orthopedic resident on-call. Future Appointments and Orders Future Appointments Provider Department Dept Phone 12/20/2015 1:45 PM Renata Lehman, LISA Pain Management [phone] 01/16/2016 12:50 PM [facility] DX ROOM 1 [facility] Xray [phone] Please go to Radiographic Technologist Area 3T ([facility] Location). 01/16/2016 1:50 PM Davide Mallory MD Orthopaedics [phone] Future Orders Complete By Expires Referral to Home Health - at DISCHARGE [TGA2539 CPT(R)] As directed Process Instructions: Scheduling Instructions: Comments: DISCHARGE DOCUMENTATION FOR VNA SERVICES (INCLUDING PATIENTS WITH MEDICARE COVERAGE BEING DISCHARGED HOME WITH VNA SERVICES AND THOSE PATIENTS WITH MEDICARE COVERAGE WHO ARE BEING DISCHARGED HOME WITHHOSPICE SERVICES) PATIENT'S LOCATION: Mahin Ramos [address] [place] [phone] (home) Cell: No relevant phone numbers on file. 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 HOME HEALTH AGENCY: [facility]. PHONE: [phone] FAX: [phone] Home care orders for [employer] Knee Replacements for PT: Senior Care(SN) eval if indicated on admission visit 1. [...] obtained from this patient'sPCP: AZALIA PEÑA APRN [facility] [[email or web address]] [address] [place] [id number] All [facility] agencies which cover the area of patient's residence have been reviewed, either verbally or in writing, and patient/family have chosen the indicated home health care agency for home services. Questions: Agency name and contact information: [facility], [place], [place] Patient location post discharge: home What [...] pain management planning, had left TKA on 12/12, needs to re- establish care for pain management post-operatively Primary Care Provider: AZALIA PEÑA APRN [phone] Discharge References/Attachments None documented in this encounter Discharge Instructions Discharge InstructionsCed Medina APRN - 12/14/2015 2:59 PM EDT Activity: 1. [...] bowel movement. You can also take an pdzw-xhi-qlgeefl medication, Miralax if needed to combat constipation. [...] You will have follow-up appointments at [facility] as indicated below in Future Appointment and Orders. 2. You will need to have x-rays prior to your follow-up appointment on 01/16/2016. Please come to Radiology, desk 3T, 1 hour BEFORE that appointment for those x-rays. Future Appointments Date Time Provider Department Center 12/20/2015 1:45 PM Renata Lehman APRN [facility] 01/16/2016 12:50 PM [facility] DX ROOM 1 Xray [facility] 01/16/2016 1:50 PM Davide Mallory MD [facility] 3C [facility] If you have [...] with all belongings. Report called to [facility]. Jasmyne Peres RN - 12/14/2015 3:01 PM EDT Office of Care Management (OCM) / Cutch Cleaner(CM)/ Initial Assessment Discussed patient with Provider Team [...] performed by Trev Hong MD at [facility] ENDOSCOPY ??? Pro total knee arthroplasty Left 12/13/2015 @TOTAL KNEE ARTHROPLASTY performed by Davide Mallory MD at [facility] MAIN OR ??? Left 12/13/2015 MODIFIER TC3 FIXED MODULAR DEPUY performed by Davide Mallory MD at [facility] MAIN OR ??? Left 12/13/2015 MODIFIER TC3 ROTATING PLATFORM DEPUY performed by Davide Mallory MD at [facility] MAIN OR PREVIOUS FUNCTIONAL STATUS: physically & [...] years. ADVANCE DIRECTIVES: None on file in [facility] HEALTH /PRESCRIPTION COVERAGE: [place], Medicare A CURRENT HOME/COMMUNITY SERVICES/EQUIPMENT: none ADVERTISING PHOTOGRAPHER REFERRAL: not needed at this time or Notified for: PRIMARY CARE PHYSICIAN: AZALIA PEÑA, LISA ZEINAB [address] [facility] [address] POTENTIAL DISCHARGE NEEDS: Patient will need VNA services for physical therapy at discharge. [facility]. PHONE: [phone] FAX: [phone] ANTICIPATED BARRIERS TO DISCHARGE: none anticipated at this time TRANSPORTATION @ D/C: Private vehicle transport to home with his /son PLAN: CM will continue to monitor progress, follow for continuity of care and assist with discharge planning while hospitalized CM Jasmyne Peres RN, BS, pager [phone] Kel Hair MD - 12/14/2015 9:39 AM [...] Hair MD Orthopaedic Surgery, PGY 4 Pager [phone] 12/14/2015 Brittanie, Sparkle Eason RN - 12/13/2015 9:20 PM EDT Patient [...] performed by Trev Hong MD at [facility] ENDOSCOPY ??? Pro total knee arthroplasty Left 12/13/2015 @TOTAL KNEE ARTHROPLASTY performed by Davide Mallory MD at [facility] MAIN OR ??? Left 12/13/2015 MODIFIER TC3 FIXED MODULAR DEPUY performed by Davide Mallory MD at [facility] MAIN OR ??? Left 12/13/2015 MODIFIER TC3 ROTATING PLATFORM DEPUY performed by Davide Mallory MD at [facility] MAIN OR Social History: Patient lives with spouse in split level house7 steps up to bedroom. 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 [...] eval Total timed interventions: 0 minutes Pager: [phone] WHITLEY ADKINS OT 12/14/2015 Occupational Therapy Rehabilitation Department Initial Assessments - Denise Ritter, PT - 12/14/2015 8:43 AM EDT Physical [...] performed by Trev Hong MD at [facility] ENDOSCOPY Social History: Patient lives with his [...] using RW at independent level. Time in/out: 7406-2856 Total treatment time: 42 minutes Total timed treatment: 10 minutes (YEE) Denise Ritter PT Pager: [phone] 12/14/15 Physical Therapy Rehabilitation Department Plan of [...] bladder scanned per order and straight cathed client technologies analyst for inability to void. Patient ambulated to [...] Review Outcome: Ongoing (Interventions Implemented as Appropriate) 12/13/15 211 Coping/Psychosocial Response Interventions Plan of Care Reviewed with patient Goal: Fall Prevention-Safe Patient Handling Outcome: Ongoing (Interventions Implemented as Appropriate) 12/13/15211012/13/15 2200 Tavarez Fall Risk History of Falling 0 [...] Control Outcome: Ongoing (Interventions Implemented as Appropriate) 12/13/15 2111 Safety Interventions Isolation Precautions standard precautions maintained Infection Prevention bronchial hygiene promoted;environmental surveillance;hydration promoted;nutrition promoted;promote handwashing;rest/sleep promoted Coping/Psychosocial Response Interventions Counseling calming techniques promoted;emotional support provided;goal setting facilitated Op Note - Kel Hair MD - 12/13/2015 5:39 PM EDT Patient Name: Mahin Ramos : [id number] MR#: [id number] ?? Case Date: 12/13/2015 ?? Surgeon: Surgeon(s) [...] Implant Name Type Inv. Item Serial No. Development And Housing Director Lot No. LRB No. Used Action CEMENT,BNE,SMARTSET,HV,EO,40G ([id number]) - [id number] IMPLANTS CEMENT,BNE,SMARTSET,HV,EO,40G ([id number]) Depuy Doweler - 3527 [id number] Left 2 Implanted STEM,UNIV,FLUT,[id number] ([id number]) (AUTOREQ) - [id number] IMPLANTS STEM,UNIV,FLUT,[id number] ([id number]) (AUTOREQ) Depuy Doweler - 3527 [id number] Left 1 Implanted BOLT,FMRL,SIGMA,NTRL,ADAP ([id number]) (AUTOREQ) - [id number] IMPLANTS BOLT,FMRL,SIGMA,NTRL,ADAP ([id number]) (AUTOREQ) Depuy Doweler - 3527 [id number] Left 1 Implanted COMPO,PFC,SGM,FEM,TC3,LT,SZ3 ([id number]) (AUTOREQ) - [id number] IMPLANTS COMPO,PFC,SGM,FEM,TC3,LT,SZ3 ([id number]) (AUTOREQ) Depuy Doweler - 3527 [id number] Left 1 Implanted LOPEZ,PFC,SGM,OVL,3PG,STD,38MM ([id number]) (AUTOREQ) - [id number] IMPLANTS LOPEZ,PFC,SGM,OVL,3PG,STD,38MM ([id number]) (AUTOREQ) Depuy Doweler - 3527 [id number] Left 1 Implanted TRAY,TIB,PFC,OFST,LM-RL,SZ3 ([id number]) (AUTOREQ) - [id number] IMPLANTS TRAY,TIB,PFC,OFST,LM-RL,SZ3 ([id number]) (AUTOREQ) Depuy Doweler - 3527 [id number] Left 1 Implanted ADAPTER,FMRL,PFC,SIGMA,5 DEG ([id number]) (AUTOREQ) - [id number] IMPLANTS ADAPTER,FMRL,PFC,SIGMA,5 DEG ([id number]) (AUTOREQ) Depuy Doweler - 3527 [id number] Left 1 Implanted STEM,UNIV,FLUT,40O17PB ([id number]) (AUTOREQ) - [id number] IMPLANTS STEM,UNIV,FLUT,[id number] ([id number]) (AUTOREQ) Depuy Doweler - 3527 [id number] Left 1 Implanted INSER,PFC,SGM,TC3,TIB,SZ3,12.5 ([id number]) (AUTOREQ) - [id number] IMPLANTS INSER,PFC,SGM,TC3,TIB,SZ3,12.5 ([id number]) (AUTOREQ) Depuy Doweler - 3527 [id number] Left 1 Implanted Details of the Procedure: [...] patient, surgery, and site according to the [facility] [place] Protocol. A nonsterile tourniquet was placed high [...] posterior and champfer cuts were made. The music box mechanic was then placed over the intramedually reamer [...] irrigated with normal saline using the pulse recreation supervisor. Cement mixing was begun on the back [...] then a mepilex dressing was applied. A sxa-jd-xxcyq Donald bandage was applied. A Cryo/Cuff and [...] Operative Note Patient Name: Mahin Ramos : [id number] MR#: [id number] Case Date: 12/13/2015 Surgeon: Surgeon(s) and Role: [...] 12/11/2021 Office Visit Orthopaedics Marion Tavera APRN [facility] DR ORTHOPAEDIC SURG [place], [place] [address] (Wo rk) 01/15/2022 Appointment Radiology Stiven Cervantes MD [facility] Dr Pulmonary Medici [place], [place] [address] (Wo rk) Scheduled Procedures Name [...] (ABNORMAL) Differential, Automated (12/14/2015 3:22 AM EDT) [facility] Method Time Signature Neutrophils % 71.1 % [facility] LABORATORY Neutr Abs (ANC) 9.55 (H) 1.50 - [facility] 6.30 [facility] x10(3)/[facility] L LABORATORY Lymphocytes % 16.6 % [facility] Lymphocytes Abs 2.2 1.0 - 3.6 [facility] x10(3)/[facility] LABORATORY Monocytes % 10.0 % [facility] Monocyte Abs 1.3 (H) 0.2 - 1.0 [facility] x10(3)/[facility] LABORATORY Eosinophils % 1.5 % [facility] LABOR[facility]ORY Eosinophils Abs 0.2 0.0 - 0.5 [facility] x10(3)/[facility] LABORATORY Basophils % 0.6 % [facility] LABOR[facility]ORY Basophils Abs 0.1 0.0 - 0.2 [facility] x10(3)/[facility] LABORATORY Immature Gran % 0.20 % [facility] Comment: Immature granulocytes(IG's)percentage an d absolute count will include metamyelocytes, myelocytes, and promyelo cytes. Blood smears from CBCs yielding IG's will be scanned manually for concor dance. If this scan disagrees with the automated IG or if promyelocytes are not ed, a manual differential will be performed. Shannan Gran Abs 0.03 0.00 - 0.05 x10(3)/[facility] MAR Y [facility] LABORATORY Specimen Anatomical Collection Method Collection Time Receive d Time (Source) Location / / Volume Laterality Blood specimen 12/14/2015 3:22 AM 016 3:30 (specimen) EDT AM EDT Resulting Agency Comment Spec In Lab Davide Mallory MD HEMATOLOGY ORDERABLES Performing Organization Address City/State/[place] [address] (ABNORMAL) Hemogram (12/14/2015 3:22 AM EDT) Analysis Performed At Patho logist Time Signature WBC 13.4 (H) 4.0 - 10.0 [facility] x10(3)/[facility] LABORATORY RBC 4.09 (L) 4.63 - [facility] 6.08 [facility] x10(6)/[facility] LABORATORY Hemoglobin 12.6 (L) 13.7 - [facility] 17.5 gm/dL [facility] LABORATORY Hematocrit 38.0 (L) 40.0 - [facility] 51.0 % [facility] LABORATORY MCV 92.9 (H) 79.0 - [facility] 92.0 [facility] LABORATORY MCH 30.8 25.6 - [facility] 32.2 pg [facility] LAB[facility] MCHC 33.2 32.0 - [facility] 36.5 gm/dL [facility] LABOR[facility] Platelets 267 145 - 370 [facility] x10(3)/[facility] LABORATORY RDWSD 42.5 35.0 - [facility] 46.0 [facility] LABORATORY RDWCV 12.5 10.9 - [facility] 14.4 % [facility] LABORATORY MPV 9.7 9.0 - 12.0 [facility] LABORATORY nRBC % Auto 0.0 % [facility] LABORATORY nRBC Abs Auto 0.000 0.000 - [facility] 0.012 [facility] x10(3)/[facility] LABORATORY Specimen Anatomical Collection Method Collection Time Receive d Time (Source) Location / / Volume Laterality Blood specimen 12/14/2015 3:22 AM 016 3:30 (specimen) EDT AM EDT Resulting Agency Comment Spec In Lab Davide Mallory MD HEMATOLOGY ORDERABLES Performing Organization Address City/State/[place] [address] (ABNORMAL) Basic Metabolic Panel (non-fasting) (12/14/2015 3:22 AM EDT) athologist Signature Glucose Lvl 100 65 - 199 [facility] mg/dL [facility] LAB[facility] Comment: Diabetes: >=200 mg/dL plus symp toms BUN 11 10 - 20 mg/dL [facility] LABORATORY Creatinine 1.11 0.80 - 1.50 mg/dL [facility] LABORATORY Comment: Please note that the pediatric reference intervals supplied above were not validated at [facility]. Results from pediatri c patients should be interpreted in conjunction to the patient's age, height and muscle mass. Sodium 136 135 - 145 mmol/L [facility] LABORATORY Potassium 4.0 3.5 - 5.0 mmol/L [facility] LABOR[facility]ORY Comment: Please note: ??Patients with WBC >100,00 0 may have falsely elevated Potassium levels. ??For accurate Potassium quantif ication in these patients send serum separator tube (gold top) for subsequent determinations. ??Contact the Clinical Chemistry Laboratory if there are any qu estions. Chloride 96 (L) 98 - 107 mmol/L [facility] LABOR[facility]ORY CO2 26 22 - 31 mmol/L [facility] LAB[facility] Anion Gap 14 5 - 15 mmol/L [facility] LABORATORY Calcium 8.6 8.5 - 10.5 mg/dL [facility] LABORATORY Estimated GFR >60 >=60 [facility] LABOR[facility] Comment: This estimated GFR (eGFR) [...] the following links into your internet browser. [email or web address] [email or web address] Specimen Anatomical Collection Method Collection Time Receive d Time (Source) Location / / Volume Laterality Blood specimen 12/14/2015 3:22 AM 016 3:30 (specimen) EDT AM EDT Resulting Agency Comment Spec In Lab Davide Mallory MD CHEMISTRY ORDERABLES Performing Organization Address City/State/[facility] [place] [place] [address] XR Knee Diagnostic 1 [...] Aseptic necrosis of bone, site unspecifi ed Avascular necrosis Aseptic necrosis of bone, site unspecifi ed Bilateral chronic knee pain Pain in joint, lower leg documented in this encounter Admitting Diagnoses Diagnosis [...] EVERY 8 HOURS SCHEDULED, First dose on Fri12/14/15 at 1400, Until Discontinued, Maximum dose of [...] Oral, 2 TIMES DAILY, First dose on Christina 12/14/15 at 0900, Until Discontinued, Routine atenolol (TENORMIN) tablet 50 mg Given 12/14/2015 8:27 AM EDT 50 mg 50 mg, Oral, 2 TIMES DAILY, First dose on Fri12/13/15 at 2300, Until Discontinued, Hold for SBP<110 or HR< 60, Routine Given 12/13/2015 10:19 PM EDT 50 mg BUpivacaine-EPINEPHrine 0.25 Given 12/13/2015 4:43 PM 25 mLs 19- Surgical Site %-1:200,000 injection EDT ONCE PRN, Starting on Fri12/13/15 at 1643, Until Fri12/14/15 at 1958, Intra-Operative (Intra-Procedure), Routine buPROPion (WELLBUTRIN XL) XL tablet 300 mg Given 12/14/2015 8:28 AM EDT 300 mg 300 mg, Oral, DAILY, First dose on Fri12/14/15 at 0900, Until Discontinued, DO NOT CRUSH OR OPEN, Routine celecoxib (CeleBREX) capsule 200 mg Given 12/14/2015 [...] Given 12/13/2015 9:40 PM EDT 1,200 mg ketorolac (TORADOL) injection 15 mg Given 12/14/2015 12:02 PM EDT 15 mg 15 mg, Intravenous, EVERY 6 HOURS SCHEDULED, 4 doses, First dose on Fri12/13/15 at 2115, Last dose on Fri12/14/15 at 1800, Routine Given 12/14/2015 5:39 AM EDT 15 mg Given 12/13/2015 9:42 PM EDT 15 mg mirtazapine (REMERON) tablet 15 mg Given 12/13/2015 10:20 PM EDT 15 mg 15 mg, Oral, NIGHTLY, First dose on Fri12/13/15 at 2300, Until Discontinued, Routine multivitamin Ffmk-My-RJ-Min (THERAPEUTIC-M) Given 08/2015 8:31 AM EDT 1 [...] Given 12/14/2015 12:27 PM EDT 20 mg pantoprazole (PROTONIX) tablet 20 mg Given [...] Given 12/13/2015 9:54 PM EDT 5 mLs tamsulosin (FLOMAX) ER capsule 0.4 mg Given 12/14/2015 8:33 AM EDT 0.4 mg 0.4 mg, Oral, DAILY, First dose on Fri12/14/15 at 0900, Until Discontinued, DO NOT CRUSH OR OPEN, Routine traMADol (ULTRAM) tablet 100 mg Given 12/14/2015 12:03 PM EDT 100 mg 100 mg, Oral, EVERY 6 HOURS, First dose (after last modification) on Fri12/14/15 at 1200, Until Discontinued, Routine documented in this encounter Active and Recently Administered Medications Times are shown in EDT. Scheduled Medication Order 12/12/2015 12/13/2015 12/14/2015 acetaminophen (TYLENOL) tablet 500 mg 1409 (Given - Provider: Yoana Poole RN) 500 mg, Oral, EVERY 8 HOURS SCHEDULED, F irst dose on Fri12/14/15 at 1400, Until Discontinued, Maximum dose of acetaminophen is 4000 mg from all sources in 24 hours., Routine amLODIPine (NORVASC) tablet 5 mg 08 (Given - Provider: Geovanna Hightower RN) 5 [...] (G iven - Provider: Whitley Marquez RN) 0827 (Given - Provider: Geovanna monzon RN) 50 [...] 0900, Routine furosemide (LASIX) tablet 40 mg 08 (Given - Provider: Geovanna Hightower, VINCENT) 40 mg, Oral, DAILY, First dose on 08/25 at 0900, Until Discontinued, Routine gabapentin (NEURONTIN) capsule 1,200 mg 214 (Given - Provider: Whitley Marquez RN) 08 (Given - Provider: Geovanna monzon RN)1409 (Given [...] Sparkle monzon RN)1202 (Given - Provider: Geovanna Hightower, VINCENT) 15 mg, Intravenous, EVERY 6 HOURS SCHEDU [...] dose on Fri12/13/15 at 2 115 multivitamin Vefw-Rq-CP-Min (THERAPEUTIC-M) 27-0.4 mg tablet 1 t ablet [...] TIMES DAILY, First dose on Fri12/13/15 at 2114, Until Discontinued, Routine potassium chloride (K-DUR/KLOR-CON) extended [...] DAILY, First dos e on Fri12/13/15 at 2114, Until Discontinued, Routine sodium chloride 0.9 % flush 5 mL 2153 (G iven - Provider: Whitley Marquez RN) 0834 (Given - Provider: Geovanna monzon RN) 5 mL, Intravenous, 2 TIMES DAILY, First dose on Fri12/13/15 at 2115, Until Discontinued, Recovery (Recovery-Hospital Unit), Routine tamsulosin (FLOMAX) ER capsule 0.4 mg 0833 (Given - Provider: Geovanna Hightower, VINCENT) 0.4 mg, Oral, DAILY, First dose on Christina at 0900, Until Discontinued, DO NOT CRUSH OR OPEN, Routine traMADol (ULTRAM) tablet 100 mg 1203 (Given - Provider: Geovanna Hightower, VINCENT) 100 mg, Oral, EVERY 6 HOURS, First dose on Christina 12/14/15 at 1200, Until Discontinued, Routine Continuous Medication [...] 0247 (New Bag - Provider: Sparkle elliott, VINCENT) 1,000 mL, at 100 mL/hr, Intravenous, CON TINUOUS, Starting Fri12/13/15 at 1915, Until Christina 12/14/15 at 0949, Recovery (Recovery-Hospital Unit) PRN Medication Order 12/12/2015 12/13/2015 12/14/2015 bisacodyl (DULCOLAX) EC tablet 10 mg 10 mg, Oral, 2 TIMES DAILY PRN, Starting 12/13/15 at 2055, Until Christina 12/14/15 at 1958, Constipation, DO NOT CRUSH OR [...] patient unable to take PO, may give MT if ordered, Routine BUpivacaine-EPINEPHrine 0.25 %-1:200,000 injection (CANCELED ) 1642 (Given - Provider: Davide Mallory MD) ONCE PRN, Starting Fri12/13/15 at 1643, U ntil Christina 12/14/15 at 195, Intra-Operative (Intra-Procedure), Routine diaZEPam (VALIUM) tablet 5 mg 12 (Given - Provider: Geovanna Hightower RN) 5 mg, Oral, EVERY 12 HOURS PRN, Starting Fri12/14/15 at 0957, Until Christina 12/14/15 at 1957, muscle spasm, Routine HYDROmorphone (DILAUDID) syringe 0.4-0.6 mg (CANCELED) 172 (Given - Provider: Merced Flores RN)172 (Given [...] DAILY PRN, Starting Fri12/13/15 at 2054, Until Christina 12/14/15 at 1957, Itching, Routine lactulose (CHRONULAC) 20 gram/30 mL oral solution 20-40 g 20-40 g (30-60 mL), Oral, DAILY PRN, Sta rting Fri12/13/15 at 2054, Until Christina 12/14/15 at 1957, Constipation, Administer [...] 1 dose, Starting Fri12/13/15 at 2054, Until Christina 12/14/15 at 1957, for discomfort with PIV insertion, Recovery (Recovery- Hospital Unit), Routine oxyCODONE (ROXICODONE) immediate release tablet 10 mg(Linked Rachelle up 1) 1227 (See Alternative - Provider: Geovanna Hightower RN)1630 (See Alternative - Provider: Geovanna Hightower RN) 10 mg, Oral, EVERY 4 HOURS PRN, Starting Christina 12/14/15 at 0950, Until Christina 12/14/15 at 1957, Pain, mild pain (1-3), May give additional 5 mg in 30 minutes once if pain not relieved., Routine oxyCODONE (ROXICODONE) immediate release tablet 15 mg(Linked Rachelle up 1) 1227 (See Alternative - Provider: Geovanna Higthower RN)1630 (See Alternative - Provider: Geovanna Hightower RN) 15 mg, Oral, EVERY 4 HOURS PRN, Starting Christina 12/14/15 at 0950, Until Christina 12/14/15 at 1957, Pain, moderate pain (4-6), May give additional 5 mg in 30 minutes once if pain not relieved., Routine oxyCODONE (ROXICODONE) immediate release tablet 20 mg(Linked Rachelle up 1) 1227 (Given - Provider: Geovanna Hightower, RN)1630 (Given - Provider: Geovanna Hightower, VINCENT) 20 mg, Oral, EVERY 4 HOURS PRN, Starting Christina 12/14/15 at 0950, Until Christina 12/14/15 at 1958, Pain, severe pain or opiate tolerant patient (7-10), Routine oxyCODONE (ROXICODONE) immediate release tablet 5-15 mg (CAN CELED) 2011 (Given - Provider: Padmini Hilliard, VINCENT) 9 (Given - Provider: Whitley keen, RN)041 (Given - Provider: Sparkle Gu, VINCENT)0833 (Given - Provider: Geovanna Hightower, VINCENT) 5-15 mg, Oral, EVERY 4 HOURS PRN, Starti ng Fri12/13/15 at 2004, Until Christina 8 at 0952, Pain, Give 5mg for pain 3-5 Give 10mg for pain 6-8 Give 15mg for pain 9-10, Routine sodium chloride 0.9 % flush 5-20 mL 5-20 mL, Intravenous, EVERY 1 MIN PRN, S tarting Fri12/13/15 at 5, Until Christina 8 at 1958, flush, Flush pertains to all indwelling lines. Flush per protocol found in the job aid using the link provid ed on this medication record., Recovery (Recovery-Hospital Unit) , Routine traMADol (ULTRAM) tablet 50-100 mg (CANCELED) 024 (Given - Provider: Sparkle Gu, VINCENT)0833 (Given - Provider: Geovanna Hightower, VINCENT) 50-100 mg, Oral, EVERY 4 HOURS PRN, Star ting Fri12/13/15 at 2054, Until Christina 8 at 0953, [...] 12/14/15 at 0950, Until Christina 12/14/15 at 195, Pain, severe pain or opiate tolerant patient (7-10), Routine documented in this encounter Care Teams Surveillance Observer Relationship Specialty Start Date End Date Azalia Peña APRN PCP - General 11/19/13 03/19/17 documented as of this encounter
--- OUTSIDE RECORDS SUMMARY | 2021-11-30 08:24 | XMS_ITS | Encounter Summary ---
:1955 Author Organization [facility] Address [facility] [place] [address] Care Team Providers Name Role Phone Azalia Peña APRN Primary Care Provider Encounter Details Date Type Department Care Team Description 11/14/2015 Laboratory Appointment Lab at [facility] Ankle fracture, left; [facility] Bilateral chronic knee pain; [place] [id number] Social History Tobacco Use Types Packs/Day Years [...] Tavera APRN [facility] ER ORTHOPAEDIC SURG [place], [place] [address] (Wo rk) 01/15/2022 Appointment Radiology Stiven Cervantes MD [facility] Dr Carlos Dumont [place], [place] [address] (Wo rk) Scheduled Procedures Name Priority Associated Diagnoses Date/Time DEBRIDEMENT SKIN, SUBCU, MUSCLE, R great toe amp utation, wound LOWER EXTREMITY (WRVU 2.7) closure MODIFIER WOUND VAC R great toe amputation, wound closure documented as of this encounter Procedures Procedure Name Priority Date/Time Associated Comments Diagnosis HEMOGRAM Routine 11/14/2015 1:11 PM Ankle fracture, Result s for this EDT left procedure are in Bilateral chronic the result s knee pain section. Avascular necrosis DIFFERENTIAL, Routine 11/14/2015 1:11 PM Ankle fracture, Resul ts for this AUTOMATED EDT left procedure are in Bilateral chronic the result s knee pain section. Avascular necrosis TYPE AND SCREEN, SDP Routine 11/14/2015 1:11 PM Ankle fracture , (FUTURE SURGERY, [facility] EDT left SAME DAY PROGRAM ONLY) Bilateral chronic knee pain Avascular necrosis bilateral knees ABO/RH TYPING Routine 11/14/2015 1:11 PM Ankle fracture, Resul ts for this EDT left procedure are in Bilateral chronic the result s knee pain section. Avascular necrosis SEDIMENTATION RATE Routine 11/14/2015 1:11 PM Ankle fracture, Results for this EDT left procedure are in Bilateral chronic the result s knee pain section. Avascular necrosis bilateral knees CBC (WITH DIFF) Routine 11/14/2015 1:11 PM Ankle fracture, EDT left Bilateral chronic knee pain Avascular necrosis bilateral knees ANTIBODY SCREEN Routine 11/14/2015 1:11 PM Ankle fracture, Res ults for this EDT left procedure are in Bilateral chronic the result s knee pain section. Avascular necrosis CRP, CARDIAC RISK (HS Routine 11/14/2015 1:11 PM Ankle fractur e, Results for this CRP) EDT left procedure are in Bilateral chronic the result s knee pain section. Avascular necrosis bilateral knees BASIC METABOLIC PANEL Routine 11/14/2015 1:11 PM Ankle fractur e, Results for this (NON-FASTING) EDT left procedure are in Bilateral chronic the result s knee pain section. Avascular necrosis bilateral knees documented in this encounter Results Antibody screen (11/14/2015 1:11 PM EDT) [facility] Method Time Signature Ab Screen Negative [facility] LABORATORY Expires at 12/16/2015 [facility] [id number] on: [facility] Comment: Corrected from 12/29/15 12:00 [Unknown] on 12/07/15 03:46 by Nina Yeboah I.. Corrected from 12/07/15 12:00 [Unknown] on 12/04/15 02:33 by Angelina Mcdonald Specimen Anatomical Collection Method Collection Time Receive d Time (Source) Location / / Volume Laterality Blood specimen 11/14/2015 1:11 PM 016 1:14 (specimen) EDT PM EDT Resulting Agency Comment Spec In Lab Gordon Mallory MD BLOOD BANK ORDERABLES Performing Organization Address City/[facility]/ZIP Code Phon e Number [address] ABO/Rh Typing (11/14/2015 1:11 PM EDT) P athologist Signature ABORh Type A Pos [facility] LABORATORY Specimen Anatomical Collection Method Collection Time Receive d Time (Source) Location / / Volume Laterality Blood specimen 11/14/2015 1:11 PM 016 1:14 (specimen) EDT PM EDT Resulting Agency Comment Spec In Lab Gordon Mallory MD BLOOD BANK ORDERABLES Performing Organization Address City/[facility]/ZIP Code Phon e Number [address] (ABNORMAL) Differential, Automated (11/14/2015 1:11 PM EDT) Patholo gist Method Time Signature Neutrophils % 69.8 % [facility] Neutr Abs (ANC) 9.34 (H) 1.50 - [facility] 6.30 [facility] x10(3)/[facility] LABORATORY Lymphocytes % 15.2 % [facility] Lymphocytes Abs 2.0 1.0 - 3.6 [facility] x10(3)/[facility] LABORATORY Monocytes % 10.3 % [facility] Monocyte Abs 1.4 (H) 0.2 - 1.0 [facility] x10(3)/[facility] LABORATORY Eosinophils % 3.8 % [facility] Eosinophils Abs 0.5 0.0 - 0.5 [facility] x10(3)/[facility] LABORATORY Basophils % 0.5 % [facility] Basophils Abs 0.1 0.0 - 0.2 [facility] x10(3)/[facility] LABORATORY Immature Gran % 0.40 % [facility] Comment: Immature granulocytes(IG's)percentage an d absolute count will include metamyelocytes, myelocytes, and promyelo cytes. Blood smears from CBCs yielding IG's will be scanned manually for concor dance. If this scan disagrees with the automated IG or if promyelocytes are not ed, a manual differential will be performed. Shannan Gran Abs 0.05 0.00 - 0.05 x10(3)/[facility] LABORATORY Specimen Anatomical Collection Method Collection Time Receive d Time (Source) Location / / Volume Laterality Blood specimen 11/14/2015 1:11 PM 016 1:16 (specimen) EDT PM EDT Resulting Agency Comment Spec In Lab Gordon Mallory MD HEMATOLOGY ORDERABLES Performing Organization Address City/State/[place] [address] (ABNORMAL) Hemogram (11/14/2015 1:11 PM EDT) P athologist Signature WBC 13.4 (H) 4.0 - 10.0 [facility] x10(3)/[facility] LABORATORY RBC 4.47 (L) 4.63 - [facility] [place] 6.08 [facility] x10(6)/[facility] LABORATORY Hemoglobin 14.0 13.7 - [facility] 17.5 gm/dL [facility] Hematocrit 42.1 40.0 - [facility] [place] 51.0 % [facility] MCV 94.2 (H) 79.0 - [facility] [place] 92.0 fL [facility] MCH 31.3 25.6 - [place] 32.2 pg [facility] MCHC 33.3 32.0 - [facility] [place] 36.5 gm/dL [facility] Platelets 301 145 - 370 [facility] x10(3)/[facility] LABORATORY RDWSD 46.3 (H) 35.0 - [facility] 46.0 [facility] LABORATORY RDWCV 13.5 10.9 - [facility] 14.4 % [facility] MPV 9.6 9.0 - 12.0 [facility] LABORATORY Specimen Anatomical Collection Method Collection Time Receive d Time (Source) Location / / Volume Laterality Blood specimen 11/14/2015 1:11 PM 016 1:16 (specimen) EDT PM EDT Resulting Agency Comment Spec In Lab Gordon Mallory MD HEMATOLOGY ORDERABLES Performing Organization Address City/[facility] [place] [address] High Sensitivity CRP (11/14/2015 1:11 PM EDT) P athologist Signature CRP High Sens 19.7 mg/L [facility] Comment: Interpretations: 1) For accurate cardiac risk assessment, the average of 2 values >2 weeks apart should be obtained (ref 1&2). A value >1 0 mg/L indicates an inflammatory condition, concentrations >10 mg/L shoul d not be used for cardiac risk assessment. ?<1.0 mg/L: low risk ?1.0 - 3.0 mg/L: moderate risk ?>3.0 mg/L: high risk groups for fu ture cardiovascular events 2) The general reference range of appare ntly healthy individuals using this test is <5.0 mg/L (derived from the test package insert) References: 1. Kendy COPELAND et. al. ??AHA/CDC Scientif ic Statement: Markers of Inflammation and Cardiovascular Disease. ??Circulatio n 2003; 107:499-511 2. Ridker PM. ??Clinical applications of C-reactive protein for cardiovascular disease detection and prevention. ??Circ ulation 2003; 107:363-369 Specimen Anatomical Collection Method Collection Time Receive d Time (Source) Location / / Volume Laterality Blood specimen 11/14/2015 1:11 PM 016 1:16 (specimen) EDT PM EDT Resulting Agency Comment Spec In Lab Gordon Mallory MD CHEMISTRY ORDERABLES Performing Organization Address City/[facility]/[place] [address] [facility] [address] Sedimentation rate (11/14/2015 1:11 PM EDT) athologist Signature Sed Rate 12 0 - 15 [facility] mm/hr [facility] Specimen Anatomical Collection Method Collection Time Receive d Time (Source) Location / / Volume Laterality Blood specimen 11/14/2015 1:11 PM 016 1:16 (specimen) EDT PM EDT Resulting Agency Comment Spec In Lab Gordon Mallory MD HEMATOLOGY ORDERABLES Performing Organization Address City/State/[place] [address] [facility] [address] Basic Metabolic Panel (non-fasting) (11/14/2015 1:11 PM EDT) athologist Signature Glucose Lvl 101 65 - 199 [facility] mg/dL [facility] Comment: Diabetes: >=200 mg/dL plus symp toms BUN 12 10 - 20 mg/dL [facility] Creatinine 1.06 0.80 - 1.50 mg/dL [facility]ORY Comment: Please note that the pediatric reference intervals supplied above were not validated at [facility]. Results from pediatri c patients should be interpreted in conjunction to the patient's age, height and muscle mass. Sodium 140 135 - 145 mmol/L [facility] Potassium 4.6 3.5 - 5.0 mmol/L [facility] Comment: Please note: ??Patients with WBC >100,00 0 may have falsely elevated Potassium levels. ??For accurate Potassium quantif ication in these patients send serum separator tube (gold top) for subsequent determinations. ??Contact the Clinical Chemistry Laboratory if there are any qu estions. Chloride 99 98 - 107 mmol/L [facility] CO2 29 22 - 31 mmol/L [facility] Anion Gap 12 5 - 15 mmol/L [facility] Calcium 9.1 8.5 - 10.5 mg/dL [facility] Estimated GFR >60 >=60 [facility] Comment: This estimated GFR (eGFR) [...] the following links into your internet browser. http://[employer]/DHnkdep http://[employer]/DHMCnkf Specimen Anatomical Collection Method Collection Time Receive d Time (Source) Location / / Volume Laterality Blood specimen 11/14/2015 1:11 PM 016 1:16 (specimen) EDT PM EDT Resulting Agency Comment Spec In Lab Gordon Mallory MD CHEMISTRY ORDERABLES Performing Organization Address City/State/[place] [address] documented in this encounter Visit Diagnoses Diagnosis Ankle fracture, left Unspecified closed fracture of ankle Bilateral chronic knee pain Pain in joint, lower leg Avascular necrosis bilateral knees Aseptic necrosis of bone, site unspecifi ed documented in this encounter Care Teams [place] Laboratory Assistant Relationship Specialty Start Date End Date Azalia Peña APRN PCP - General 11/19/13 03/19/17 documented as of this encounter
--- OUTSIDE RECORDS SUMMARY | 2021-11-30 08:24 | XMS_ITS | Encounter Summary ---
:1955 Author Organization [facility] Address [facility] [address] [place] [address] Care Team Providers Name Role Phone Azalia [...] Expiration Date Visits Requ ested Visits Authorized [id number] Closed 1 1 Encounter Details Date Type Department Care Team Description 08/17/2015 Surgery G[facility]enterology at [facility] Trev Hong MD [facility] [place] [address] GASTROENTEROLOGY [place], [place] [address] Social History Tobacco Use Types [...] expected. Who to call Same Day Endoscopy [phone] [id number] [id number] Otherwise contact [phone] and ask to speak to the bulb farmworker water conservationist. Follow-up care is a hansen part of [...] 200-5 Inhale 1 puff into 0 01/19/2014 070 09/2015 mcg/actuation HFA Aerosol the lungs as [...] Marion Tavera APRN [facility] ORTHOPAEDIC SURG [place] [id number] (Wo rk) 01/15/2022 Appointment Radiology Stiven Cervantes MD [facility] er Dr Carlos Dumont [place] [address] (Wo rk) Scheduled Procedures Name Priority Associated [...] Component Value Ref Test Analysis Performed At [facility] Range Method Time Signature UPPER GI [facility] [employer] ENDOSCOPY Endoscopy Patient Name: Mahin Ramos ? Procedure Date: 08/17/2015 9:30 AM ? N: [id number] ? Date of : 1955 ? Age: 59 ? Order #: [id number] ? Procedure: ? Upper GI endoscopy Indications: [...] ? the physician, the nurse, the ? aviation boatswain's mate and the technicia n in the ? [...] reactions. The ? Endoscope was introduced thro h the ? mouth, and advanced to the [...] [employer] documented in this encounter Visit Diagnoses Diagnosis Chronic hepatitis C without hepatic coma documented in this encounter Active and Recently [...] Procedure) documented in this encounter Care Teams Relief Worker Relationship Specialty Start Date End Date Azalia Peña APRN PCP - General 11/19/13 03/19/17 documented as of this encounter
--- OUTSIDE RECORDS SUMMARY | 2021-11-30 08:24 | XMS_ITS | Encounter Summary ---
:1955 Author Organization [facility] [place] [address] Care Team Providers Name Role Phone Azalia Peña APRN Primary Care Provider Encounter Details Date Type Department Care Team Description 08/09/2015 Laboratory Appointment Lab 3L [facility] Chronic hepatitis C [facility] [place] [address] Social History Tobacco Use Types Packs/Day Years Used Date Former Smoker Cigarettes 0.1 42 Smokeless Tobacco: Former User Comments: STATES THAT HE STOPPED TWO Fri AGO 04/2015 Alcohol Use Standard Drinks/Week Comments Yes 17.5 (1 standard drink = 0.6 oz pure alc ohol) [facility] Alcohol Habits Answer Date Recorded How often [...] Orthopaedics Marion Tavera APRN [facility] ER DR ORTHOPAEDIC SURG [place], [place] [address] (Jorge arzate) 01/15/2022 Appointment Radiology Stiven Cervantes MD [facility] Pulmonary Medici nelly [place], [place] [address] (Jorge arzate) Scheduled Procedures Name Priority Associated Diagnoses Date/Time DEBRIDEMENT SKIN, SUBCU, MUSCLE, R great toe amp utation, wound LOWER EXTREMITY (WRVU 2.7) closure MODIFIER WOUND VAC R great toe amputation, wound closure documented as of this encounter Procedures Procedure Name Priority Date/Time Associated Comments Diagnosis HEMOGRAM Routine 08/09/2015 11:04 Chronic hepatitis C Resu lts for this AM EDT without hepatic procedure ar e in coma the results section. DIFFERENTIAL, Routine 08/09/2015 11:04 Chronic hepatitis C Res ults for this AUTOMATED AM EDT without hepatic procedure ar e in coma the results section. HEPATITIS C RNA, Routine 08/09/2015 11:04 Chronic hepatitis C Results for this QUANTITATIVE, PCR AM EDT without hepatic procedu re are in coma the results section. PROTHROMBIN TIME Routine 08/09/2015 11:04 Chronic hepatitis C Results for this AM EDT without hepatic procedure ar e in coma the results section. CBC (WITH DIFF) Routine 08/09/2015 11:04 Chronic hepatitis C AM EDT without hepatic coma COMPREHENSIVE Routine 08/09/2015 11:04 Chronic hepatitis C Res ults for this METABOLIC PANEL AM EDT without hepatic procedure are in (NON-FASTING) coma the results section. documented in this encounter Results (ABNORMAL) Differential, Automated (08/09/2015 11:04 AM EDT) [facility] gist Method Time Signature Neutrophils % 52.7 % [facility] Neutr Abs (ANC) 5.60 1.50 - [facility] 6.30 [facility] x10(3)/[facility] LABORATORY Lymphocytes % 28.7 % [facility] Lymphocytes Abs 3.0 1.0 - 3.6 [facility] x10(3)/[facility] LABORATORY Monocytes % 10.2 % [facility] Monocyte Abs 1.1 (H) 0.2 - 1.0 [facility] x10(3)/[facility] LABORATORY Eosinophils % 7.5 % [facility] Eosinophils Abs 0.8 (H) 0.0 - 0.5 [facility] x10(3)/[facility] LABORATORY Basophils % 0.7 % [facility] Basophils Abs 0.1 0.0 - 0.2 [facility] x10(3)/[facility] LABORATORY Immature Gran % 0.20 % [facility] Comment: Immature granulocytes(IG's)percentage an d absolute count will include metamyelocytes, myelocytes, and promyelo cytes. Blood smears from CBCs yielding IG's will be scanned manually for concor dance. If this scan disagrees with the automated IG or if promyelocytes are not ed, a manual differential will be performed. Shannan Gran Abs 0.02 0.00 - 0.05 x10(3)/[facility] Specimen Anatomical Collection Method Collection Time Receive d Time (Source) Location / / Volume Laterality Blood specimen 08/09/2015 11:04 6 (specimen) AM EDT 11:10 AM EDT Resulting Agency Comment Spec In Lab Trudy Roche MD HEMATOLOGY ORDERABLES Performing Organization Address City/State/ZIP Code Phon e Number [place] [phone] (ABNORMAL) Hemogram (08/09/2015 11:04 AM EDT) P athologist Signature WBC 10.6 (H) 4.0 - 10.0 [facility] x10(3)/[facility] LABORATORY RBC 4.73 4.63 - [facility] 6.08 [facility] x10(6)/[facility] LABORATORY Hemoglobin 14.9 13.7 - [facility] g[facility]/dL [facility] Hematocrit 44.8 40.0 - [facility] 51.0 % [facility] MCV 94.7 (H) 79.0 - [facility] 92.0 [facility] LABORATORY MCH 31.5 25.6 - [facility] 32.2 pg [facility] MCHC 33.3 32.0 - [facility] 36.5 gm/dL [facility] Platelets 326 145 - 370 [facility] x10(3)/[facility] LABORATORY RDWSD 45.8 35.0 - [facility] 46.0 [place] RDWCV 13.3 10.9 - [facility] 14.4 % [facility]OR[facility] MPV 9.7 9.0 - 12.0 [facility] LABORATORY Specimen Anatomical Collection Method Collection Time Receive d Time (Source) Location / / Volume Laterality Blood specimen 08/09/2015 11:04 6 (specimen) AM EDT 11:10 AM EDT Resulting Agency Comment Spec In Lab Trudy Roche MD HEMATOLOGY ORDERABLES Performing Organization Address City/[facility]/[place] [address] Prothrombin Time (08/09/2015 11:04 AM EDT) P athologist Signature PT 14.0 12.0 - 15.0 [facility] LABORATORY Comment: An INR <2.0 indicates adequate [...] appropriate depending on c linical circumstances. INR 1.1 0.9 - 1.1 [facility] Specimen Anatomical Collection Method Collection Time Receive d Time (Source) Location / / Volume Laterality Blood specimen 08/09/2015 11:04 6 (specimen) AM EDT 11:10 AM EDT Resulting Agency Comment Spec In Lab Trudy Roche MD HEMATOLOGY ORDERABLES Performing Organization Address City/[facility]/[place] [address] Hepatitis C RNA, quantitative, PCR (08/09/2015 11:04 AM EDT) Component Value Ref Test Analysis Performed At Patholo gist Range Method Time Signature HCV Viral 2,690,201 IU/mL [facility] LABORATORY HCV Viral Result: [id number] IU/mL [facility] Indication for Study: Hepatitis C Infection [facility] Analysis: A quantitiative real time reverse transcriptase PCR assay was LABORATORY performed on extracted viral RNA for the purpose of quantifi cation. Sample: plasma (1 mL minimum volume) Method: Agustin Jessica TaqMAN 48 HCV Linear Range: 15 IU/mL - 100,000,000IU/mL (95% CI) Note: This assay is being pe rformed in the [facility] Molecular Pathology Laboratory. Endy Bliss, Ph.D. Director, Molecular Pathology Comment: [VERIFIED DATE]08.15.15 Verified By:Ester Price (Electronic Signature) Specimen Anatomical Collection Method Collection Time Receive d Time (Source) Location / / Volume Laterality Blood specimen 08/09/2015 11:04 6 8:25 (specimen) AM EDT AM EDT Resulting Agency Comment Spec In Lab Trudy Roche MD IMMUNOLOGY ORDERABLES Performing Organization Address City/State/ZIP Code Phon e Number [place] [phone] (ABNORMAL) Comprehensive metabolic panel (non-fasting) (08/09/2015 11:04 AM EDT) athologist Signature Glucose Lvl 107 65 - 199 [facility] mg/dL [facility] Comment: Diabetes: >=200 mg/dL plus symp toms BUN 9 (L) 10 - 20 mg/dL [facility] Creatinine 1.20 0.80 - 1.50 mg/dL [facility] Comment: Please note that the pediatric reference intervals supplied above were not validated at [facility]. Results from pediatri c patients should be interpreted in conjunction to the patient's age, height and muscle mass. Sodium 142 135 - 145 mmol/L [facility] Potassium 4.6 3.5 - 5.0 mmol/L [facility] Comment: Please note: ??Patients with WBC >100,00 0 may have falsely elevated Potassium levels. ??For accurate Potassium quantif ication in these patients send serum separator tube (gold top) for subsequent determinations. ??Contact the Clinical Chemistry Laboratory if there are any qu estions. Chloride 97 (L) 98 - 107 mmol/L [facility] CO2 31 22 - 31 mmol/L [facility] Anion Gap 14 5 - 15 mmol/L [facility] Calcium 9.6 8.5 - 10.5 mg/dL [facility] Total Protein 7.7 6.1 - 8.0 gm/dL [facility] Albumin 4.1 3.2 - 5.2 gm/dL [facility] AST 18 0 - 39 unit/L [facility] ALT 15 0 - 55 unit/L [facility] Alk Phos 122 (H) 40 - 120 unit/L [facility] Total Bilirubin 0.6 0.2 - 1.3 mg/dL [facility] Bili, Direct 0.1 0.0 - 0.3 mg/dL [facility] Estimated GFR >60 >=60 [facility] Comment: This estimated GFR (eGFR) [...] the following links into your internet browser. [email or web address] Specimen Anatomical Collection Method Collection Time Receive d Time (Source) Location / / Volume Laterality Blood specimen 08/09/2015 11:04 6 (specimen) AM EDT 11:10 AM EDT Resulting Agency Comment Spec In Lab Trudy Roche MD CHEMISTRY ORDERABLES Performing Organization Address City/State/[place] [address] documented in this encounter Visit Diagnoses Diagnosis Chronic hepatitis C without hepatic coma documented in this encounter Care Teams Pie Bakery Laborer Relationship Specialty Start Date End Date Azalia Peña APRN PCP - General 11/19/13 03/19/17 documented as of this encounter
--- OUTSIDE RECORDS SUMMARY | 2021-11-30 08:24 | XMS_ITS | Encounter Summary ---
:1955 Author Organization [facility] [place] [address] Care Team Providers Name Role Phone Azalia Peña APRN Primary Care Provider Encounter Details Date Type Department Care Team Description 08/09/2015 Hospital Encounter Ultrasound at [facility] Trudy Roche MD Chronic hepatitis C [facility] [address] [place]O[facility]OLOGY [address] [place], [place] [phone] [address] Social History Tobacco Use Types Packs/Day Years Used Date Former Smoker Cigarettes 0.1 42 Smokeless Tobacco: Former User Comments: STATES THAT HE STOPPED TWO Fri AGO 04/2015 Alcohol Use Standard Drinks/Week Comments Yes 17.5 (1 standard drink = 0.6 oz pure alc ohol) [facility] Alcohol Habits Answer Date Recorded How often [...] [facility]TH[facility] SURG [place], [place] [address] (Wo rk) 01/15/2022 Appointment Radiology Stiven Cervantes MD [facility] Pulmonary Medici nelly [place], [place] [address] (Wo rk) Scheduled Procedures Name Priority Associated Diagnoses Date/Time DEBRIDEMENT SKIN, SUBCU, MUSCLE, R great toe amp utation, wound LOWER EXTREMITY (WRVU 2.7) closure MODIFIER WOUND VAC R great toe amputation, wound closure documented as of this encounter Procedures Procedure Name Priority Date/Time Associated Diagnosis Comme nts US ABDOMEN COMPLETE Routine 08/09/2015 10:16 AM Chronic hepati tis C Results for this WITH VASCULAR EDT without hepatic coma proced ure are in the results section. documented in this encounter Results US Abdomen Complete With Vascular (08/09/2015 10:16 AM EDT) Anatomical Region Laterality Modality Abdomen Ultrasound Specimen (Source) Anatomical Collection Method Collection Time Re ceived Time Location / / Volume Laterality 08/09/2015 10:06 AM EDT Impressions 08/09/2015 12:15 PM EDT Impression Ultrasound - Abdomen Complete - Summary Examination is limited secondary to ove rlying bowel gas. 1. Coarse hepatic echotexture with mini lorrie irregular capsular contour, consistent with cirrhosis. 2. No focal intrahepatic masses identif ied. 3. Multiple hyperechoic, well-circumscr ibed lesions within the spleen likely representing [place] Bodies or hemangiomas. 4. The spleen is of normal size and no ascites is seen. Ultrasound - Vascular evaluation - Summ linnea 1. Slow flow is noted within the main p ortal vein, with a velocity of 11.4 cm/sec, which may be suggestive of early portal hypertension. 2. The hepatic veins, portal veins and hepatic artery are patent with normal directional flow. I ??viewed the images and agree with souleymane beyer above interpretation. ? Edi Carver MD Electronically Signed Final Report ?? 12:15 pm Narrative 08/09/2015 12:15 PM EDT Abdominal Duplex ? (Signed Final 08/09/2015 12:15 pm) Patient Info ID #: ? [id number] ? : [birth year] (59 yrs) Name: ? SOLEDAD WAHL ?Visit Date:08/09/2015 10:06 am Performed By Performed By: ? Janette Gandhi RDMS Attending: ?Mehul DYSON, Mau Kelly Associate: ?Chuck DYSON, Raiza Sykes Referred By: ?BRIDGETT LOVE MD Service(s) Provided ??UABDCVASC - Abdominal Complete Survey with Vascular - [id number], [id number] ??[id number] Indications ??Cirrhosis, please evaluate for HCC an d portal ??hypertension Comparison Abdominal Ultrasound dated 05/04/2014, Abdominal ultrasound with vascular interrogation dated 08/20/2012. ----- Liver ----- Right Lobe Length: ?? 18.1 ?? cm Echogenicity/Echotexture: ?? Coarse par enchyma Portal Veins: ?Patent Hepatic Veins: ?? Patent Comment: ?No focal masses seen. Min imal capsular irregularity. Gallbladder Cholelithiasis: ?No stones visua lized Wall Thickness: ?2.4 mm Focal Tenderness: ?Negative sonogra phic Blair's sign Comment: ?Limited visualization due to overlying bowel gas. Biliary Tract Intrahepatic Ducts: ?? Normal Extrahepatic Ducts: ?? Normal Common Duct Size: ? 4.0 ? mm Comment: ?Limited visualization due to overlying bowel gas. -------- Pancreas -------- Head: ? Normal Tail: ? Not visualiz ed due to overlying bowel Body: ? Limited visu alization due to overlying bowel ------ Spleen ------ Size (cm) ? L: 10.9 ?AP: ??3 .7 ? TV: ??4.0 Vol (ml): ?84.5 Comment: ?Normal size. Multiple ech ogenic non-vascular ? lesions, with the lar gest measuring 0.8 x 0.8 x 1.0 cm. Right Kidney Size (cm) ? L: 10.8 Cortical Thickness: ?Normal Cortical Echogenicity: ?? Normal Hydronephrosis: ?No sonogr aphic evidence Left Kidney Size (cm) ? L: 10.8 Cortical Thickness: ?Normal Cortical Echogenicity: ?? Normal Hydronephrosis: ?No sonogr aphic evidence ----- Aorta ----- Measurements (cm): Mid ? AP: ??2.2 Distal ?AP: ??1.2 Rt Iliac ?AP: ??0.9 Lt Iliac ?AP: ??0.8 Comment: ?Normal in caliber where v isualized, limited ? visualization of the proximal aorta due to overlying ? bowel gas. Tortuous i n the mid portion. --- IVC --- Proximal portion, normal in caliber Fluid Collections No ascites. Hepatic-Portal Duplex ? PSV ? ED V ? RI ??Waveform ? (cm/s) ??(cm/s) Hepatic Artery: ?? 34.3 ?12.6 ? 0.63 ??Patent Right Hepatic ? Patent Vein: Middle Hepatic ?Patent Vein: Left Hepatic ?Patent Vein: Main Portal ? 11.4 ?Hepatopetal Vein: Right Portal ?Patent Vein: Left Portal Vein: ? Patent Collaterals: ??None Procedure Note Edi Carver MD - 08/09/2015Format ting of this note might be different from the original. Abdominal Duplex (Signed Final 08/09/19 16 12:15 pm) Patient Info ID #: [id number] : [birth year] (59 y rs) Name: SOLEDAD WAHL Visit Date: 016 10:06 am Performed By Performed By: Janette Gandhi RDMS Attending: Edi Carver MD Associate: Raiza Woods MD Referred By: BRIDGETT LOVE MD Service(s) Provided UABDCVASC - Abdominal Complete Survey w [facility] Vascular - [id number], [id number] Indications Cirrhosis, please evaluate for HCC and portal hypertension Comparison Abdominal Ultrasound dated 05/04/2014, Abdominal ultrasound with vascular interrogation dated 08/20/2012. ----- Liver ----- Right Lobe Length: 18.1 cm Echogenicity/Echotexture: Coarse parenc hyma Portal Veins: Patent Hepatic Veins: Patent Comment: No focal masses seen. Minimal capsular irregularity. Gallbladder Cholelithiasis: No stones visualized Wall Thickness: 2.4 mm Focal Tenderness: Negative sonographic Blair's sign Comment: Limited visualization due to o verlying bowel gas. Biliary Tract Intrahepatic Ducts: Normal Extrahepatic Ducts: Normal Common Duct Size: 4.0 mm Comment: Limited visualization due to o verlying bowel gas. -------- Pancreas -------- Head: Normal Tail: Not visualized due to overlying b owel Body: Limited visualization due to over lying bowel ------ Spleen ------ Size (cm) L: 10.9 AP: 3.7 TV: 4.0 Vol (ml): 84.5 Comment: Normal size. Multiple echogeni c non-vascular lesions, with the largest measuring 0.8 x 0.8 x 1.0 cm. Right Kidney Size (cm) L: 10.8 Cortical Thickness: Normal Cortical Echogenicity: Normal Hydronephrosis: No sonographic evidence Left Kidney Size (cm) L: 10.8 Cortical Thickness: Normal Cortical Echogenicity: Normal Hydronephrosis: No sonographic evidence ----- Aorta ----- Measurements (cm): Mid AP: 2.2 Distal AP: 1.2 Rt Iliac AP: 0.9 Lt Iliac AP: 0.8 Comment: Normal in caliber where visual ized, limited visualization of the proximal aorta due to overlying bowel gas. Tortuous in the mid portion. --- IVC --- Proximal portion, normal in caliber Fluid Collections No ascites. Hepatic-Portal Duplex PSV EDV RI Waveform (cm/s) (cm/s) Hepatic Artery: 34.3 12.6 0.63 Patent Right Hepatic Patent Vein: Middle Hepatic Patent Vein: Left Hepatic Patent Vein: Main Portal 11.4 Hepatopetal Vein: Right Portal Patent Vein: Left Portal Vein: Patent Collaterals: None IMPRESSION Impression Ultrasound - Abdomen Complete - Summary Examination is limited secondary to ove rlying bowel gas. 1. Coarse hepatic echotexture with mini lorrie irregular capsular contour, consistent with cirrhosis. 2. No focal intrahepatic masses identif ied. 3. Multiple hyperechoic, well-circumscr ibed lesions within the spleen likely representing [place] Bodies or hemangiomas. 4. The spleen is of normal size and no ascites is seen. Ultrasound - Vascular evaluation - Summ linnea 1. Slow flow is noted within the main p ortal vein, with a velocity of 11.4 cm/sec, which may be suggestive of early portal hypertension. 2. The hepatic veins, portal veins and hepatic artery are patent with normal directional flow. I viewed the images and agree with the above interpretation. Edi Carver MD Electronically Signed Final Report 08/08 12:15 pm Trudy Roche MD [facility] GEN ORDERABLES documented in this encounter Visit Diagnoses Diagnosis Chronic hepatitis C without hepatic coma documented in this encounter Care Teams Soda Fountain Operator Relationship Specialty Start Date End Date Azalia Peña APRN PCP - General 11/19/13 03/19/17 documented as of this encounter
--- OUTSIDE RECORDS SUMMARY | 2021-11-30 08:24 | XMS_ITS | Encounter Summary ---
:1955 Author Organization [facility] [place] [address] Care Team Providers Name Role Phone Azalia Peña APRN Primary Care Provider Encounter Details Date Type Department Care Team Description 07/25/2015 [facility] [place] [address] Social History Tobacco Use Types Packs/Day [...] Marion Tavera APRN [facility] ER DR ORTHOPAEDIC SURG [place], [place] [address] (Wo rk) 01/15/2022 Appointment Radiology Stiven Cervantes MD [facility] Pulmonary Medici nelly [place], [place] [address] (Wo rk) Scheduled Procedures Name Priority Associated Diagnoses Date/Time DEBRIDEMENT SKIN, SUBCU, MUSCLE, R great toe amp utation, wound LOWER EXTREMITY (WRVU 2.7) closure MODIFIER WOUND VAC R great toe amputation, wound closure documented as of this encounter Visit Diagnoses Not on filedocumented in this encounter Care Teams Manager Retention Relationship Specialty Start Date End Date Azalia Peña APRN PCP - General 11/19/13 03/19/17 documented as of this encounter
--- OUTSIDE RECORDS SUMMARY | 2021-11-30 08:24 | XMS_ITS | Encounter Summary ---
:1955 Author Organization [facility] [place] [address] Care Team Providers Name Role Phone Azalia Peña APRN Primary Care Provider Encounter Details Date Type Department Care Team Description 10/24/2015 Orders Only Orthopaedics at [facility] Gordon Mallory, Left knee pain, [facility] MD unspecified [facility] [place] [address] ORTHOPAEDICS [place], [place] [address] Social History Tobacco Use Types [...] APRN [facility] [place]OP[place]EDIC [place], [place] [address] (Wo rk) 01/15/2022 Appointment Radiology Stiven Cervantes MD [facility] [address] [place] [address] (Wo rk) Scheduled Procedures Name Priority Associated Diagnoses Date/Time DEBRIDEMENT SKIN, SUBCU, MUSCLE, R great toe amp utation, wound LOWER EXTREMITY (WRVU 2.7) closure MODIFIER WOUND VAC R great toe amputation, wound closure documented as of this encounter Results XR Knee Diagnostic 1 or 2 View Left (10/26/2015 12:59 PM EDT) Anatomical Region Laterality Modality Knee Left Digital Radiography Specimen (Source) Anatomical Location Collection Method / Collectio n Time Received Time / Laterality Volume Impressions 10/26/2015 2:21 PM EDT Nonacute medial tibial plateau fracture. Degenerative osteoarthropathy. Narrative 10/26/2015 2:21 PM EDT EXAMINATION: XR KNEE DIAGNOSTIC 1 OR 2 VIEW LEFT CLINICAL HISTORY: new injury - l knee in jur - new pain TECHNIQUE: Standing AP and lateral views left knee COMPARISON: None FINDINGS: There is mild depression of the medial t ibial plateau associated with sclerosis and the suggestion of a linear lucency. The appearance is most consistent with a subacute medial tibial plateau fracture, particularly in the absence of a joint effusion. There is narrowing of the medi al joint compartment and osteophytes consistent with degenerative joint disea se. Marked degenerative change in the right knee is also present. Procedure Note Edi Carver MD - 10/26/2015Format ting of this note might be different from the original. EXAMINATION: XR KNEE DIAGNOSTIC 1 OR 2 V IEW LEFT CLINICAL HISTORY: new injury - l knee in jury - new pain TECHNIQUE: Standing AP and lateral views left knee COMPARISON: None FINDINGS: There is mild depression of the medial t ibial plateau associated with sclerosis and the suggestion of a linear lucency. The appearance is most consistent with a subacute medial tibial plateau fracture, particularly in the absence of a joint effusion. There is narrowing of the medi al joint compartment and osteophytes consistent with degenerative joint disea se. Marked degenerative change in the right knee is also present. IMPRESSION Nonacute medial tibial plateau fracture. Degenerative osteoarthropathy. Gordon Mallory MD IMG DX ORDERABLES documented in this encounter Visit Diagnoses Diagnosis Left knee pain, unspecified chronicity Left knee pain, unspecified chronicity documented in this encounter Care Teams Ingredient Mixer Relationship Specialty Start Date End Date Azalia Peña APRN PCP - General 11/19/13 03/19/17 documented as of this encounter
--- OUTSIDE RECORDS SUMMARY | 2021-11-30 08:24 | XMS_ITS | Encounter Summary ---
:1955 Author Organization [facility] [place] [address] Care Team Providers Name Role Phone Azalia Peña APRN Primary Care Provider Reason for Visit Reason Comments Knee Pain left Encounter Details Date Type Department Care Team Description 10/26/2015 Office Visit Orthopaedics at [facility] Gordon Mallory MD [facility] [place] [address] [facility] Braxton Foy MD [facility] [place] [address] bilateral [place] [address] Social History Tobacco Use Types Packs/Day [...] Sign Reading Time Taken Comments Blood Pressure 125/75 10/26/2015 1:49 PM EDT Pulse 79 10/26/2015 1:49 PM EDT Temperature - - Respiratory Rate - - Oxygen Saturation - - Inhaled Oxygen Concentration - - Weight 90.7 kg (200 lb) 10/26/2015 1:49 PM EDT Height 175.3 cm (5' 9) 10/26/2015 1:49 PM EDT Body Mass Index 29.53 10/26/2015 1:49 PM EDT documented in this encounter Progress Notes Braxton Foy - 10/26/2015 2:28 PM EDT Mr. Ramos is a 60-year-old gentleman, an old patient of mine. 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 As it turns out, this gentleman has battled with addiction and is really finally off narcotics. He does have consequences of some hepatitis C and is being treated primarily for pain as well as peripheral neuropathy with Wellbutrin, Neurontin, Atarax, and Ultram. He is well aware of the fact that his knee discomfort really is not going to be successfully treated with a narcotic but will be treated more successfully with a joint replacement and very careful analgesic followup by the orthopedic staff and by the pain clinic. The issue, however, that he was concerned about was the extent of the surgery and fortunately the left knee is much, much worse than the right and I think because of the complexity of his lesions he is not a candidate for bilateral total knee replacement. His pain which is very bad still, however, allows him to realize very slowly full extension capability, but because of a recent rotatory injury to the left knee when he caught his foot on a stump about a week ago he can only flex comfortably to about 85 degrees. On his physical exam, however, I am not impressed with an effusion. His tenderness is diffuse, but there is no erythema. There is no cellulitic pattern. His hip motion is excellent. His ankle motion is moderately uncomfortable, but it still allows him to dorsiflex and plantar flex to a 30-40 degree arc. There is no instability on his knee exam and his patella tracks well. It is remarkable that knee films that were taken in March of 2014 show for all practical purposes this was a normal knee. Knee films taken just recently show severe osteonecrotic involvement with collapse primarily in the medial compartment. His MRI, however, shows that he has osteonecrotic lesions into the epiphysis and part of the metaphysis of both the femur and the tibia. It is important to note, however, that there is still healthy bone that one can appreciate anterior and posterior to these primarily endosteal lesions and that includes the tibia as well as the femur, although the tibia is far more involved. I do think that joint replacement in this case would certainly have to utilize revision equipment with stems and sleeves and cement. I think there may be an argument for a tumor implant, but I think that that would be the fallback if the index procedure with sophisticated revision equipment was not successful. It is important to try to get this knee done soon. Pain management I think is a difficult issue, but if his pain can be more adequately managed with the surgery all the better. His right knee is probably a fugitive from joint replacement, and I am also concerned about his shoulders, particularly on the left side. He is scheduled to come back to the arthroplasty clinic in November and I will order some standing alignment films as well as some shoulder films. The standing alignment films I think will be helpful also because it could give you a better idea of the greatest limit of your anticipated stems in the femur that can be used safely because of the S-ROM femoral component which comes just shy of the isthmus. In any event, this is a challenging case but I think that he certainly is a candidate for it. cc: LISA MARRERO MD documented in this encounter Plan of Treatment Upcoming Encounters Date Type Specialty Care Team Description 12/11/2021 Appointment Radiology 12/11/2021 Office Visit Orthopaedics Marion Tavera APRN [facility] MEDICAL [facility] ORTHOPAEDIC SURG [place], [place] [address] (Wo rk) 01/15/2022 Appointment Radiology Stiven Cervantes MD [facility] Medical [facility] er Pulmonary Medici nelly [place], [place] [address] (Wo rk) Scheduled Procedures Name Priority Associated Diagnoses Date/Time DEBRIDEMENT SKIN, SUBCU, MUSCLE, R great toe amp utation, wound LOWER EXTREMITY (WRVU 2.7) closure MODIFIER WOUND VAC R great toe amputation, wound closure documented as of this encounter Results XR shoulder - Bilateral [...] of bone, site unspecifi ed Avascular necrosis bilateral knees Aseptic necrosis of bone, site unspecifi ed documented in this encounter Care Teams Senior Telecommunications Technician Relationship Specialty Start Date End Date Azalia Peña APRN PCP - General 11/19/13 03/19/17 documented as of this encounter
--- OUTSIDE RECORDS SUMMARY | 2021-11-30 08:24 | XMS_ITS | Encounter Summary ---
:1955 Author Organization [place] [address] Care Team Providers Name Role Phone Mariana Azalia Eason APRN Primary Care Provider Reason for Visit Auth/Cert - Closed Specialty Diagnoses / Procedures Referred By Contact Refer red To Contact Diagnoses Chronic viral hepatitis C Cirrhosis, varices screening Procedures PRO UPPER GI ENDOSCOPY, DIAGNOSTIC PRO ANESTH, UGI ENDOSCOPY EGD, UPPER GI ENDOSCOPY Referral ID Status Reason Start Date Expiration Date Visits Requ ested Visits Authorized [id number] Closed 1 1 Encounter Details Date Type Department Care Team Description 08/17/2015 Anesthesia Event [place]astro[place]ology at [facility] Katey Sierra MD [facility] [place] [address] [facility] Kerri Milligan CRNA [facility] [place] [address] [place] [address] Anesthesia Record Procedure Summary Procedure Name Responsible Anesthesia Start Anesthesia Stop Time Anesthesiologist Time EGD, UPPER GI Katey Sierra MD 08/17/15 0936 08/17/15 10 02 ENDOSCOPY (Bilateral Trunk) Events Date Time Event Comment 08/17/2015 0914 0936 AN Verify 0936 Start 0939 An Start Data 0942 An Induction 0944 Anesthesia Ready 0947 Break/Relief In Milka MEDEIROS RNA 0954 an stop data 1001 Recovery or ICU Handoff Patient care was transferred to the destination unit staff after review of the patient's medica l history, current anesthetic/surgi karla status and plan, according to the Provider Handoff Checklist. 1002 Stop Name Total Midazolam 2 mg fentaNYL 100 mcg Propofol INF 528 mg lactated ringers infusion 300 mL Agents Name O2 Blood No blood administrations on file. Lines, Drains, and Airways Type Details Placement Removal PIV 08/17/15; 0928; metacarpal 08/17/15 0928 by Lisa tyler, 08/17/15 1026 by Tejal, vein right (top of hand); VINCENT Michaels RN [id number] catheter system; 20 gauge; mmekus; distraction, intradermal injection; 08/17/15; 1026 documented in this encounter Social History Tobacco [...] encounter OR Notes Anesthesia Postprocedure Evaluation - Katey Sierra MD - 08/17/2015 12:02 PM EDT [facility] Department of Anesthesiology Post-procedure Note Patient: Mahin Ramos Procedure Summary Date Anesthesia Start Anesthesia Stop Room / Location 08/17/15 0936 1002 [facility] ENDO 7 / [facility] ENDOSCOPY Procedure Diagnosis Surgeon Responsible Provider EGD, UPPER GI ENDOSCOPY (Bilateral Trunk) Chronic hepatitis C without hepatic coma (Cirrhosis, varices screening (anesthesia consult)) Trev Hong MD Evans, Rebecca E, MD All Anesthesia Providers: Anesthesiologist: Katey Sierra MD DISTRICT SERVICE MANAGER: Kerri Adams CRNA Last (1hr) Vitals: BP Temp Pulse Resp SpO2 Patient Location: PACU/[facility] Level of Consciousness: Awake and Alert Pain Management: Satisfactory Analgesia PONV: None Cardiovascular Status: At Baseline Respiratory Status: At Baseline Postoperative Fluid Status: Intravascular EUvolemia Possible Anesthetic Complications: NONE apparent at time of evaluation Final Primary Anesthesia Type: MAC (The anesthetic type performed was the same as planned.) Comments: Anesthesia Preprocedure Evaluation - Katey Sierra MD - 08/17/2015 7:01 AM EDT Pre-Anesthesia Evaluation for: Mahin Ramos a 59 y.o. male. Procedure(s): EGD, UPPER GI ENDOSCOPY Patient Active Problem List Diagnosis ??? Cirrhosis ??? Ankle fracture, left ??? Polysubstance abuse ??? Avascular necrosis bilateral knees ??? Confusion ??? Community acquired pneumonia ??? Imbalance ??? Hepatitis C Genotype 2b ??? Alcohol dependence ??? Anixety D/O NOS ??? ADHD NOS ??? Chronic back pain ??? Major depressive disorder, single episode, unspecified Past Medical History Diagnosis Date ??? HTN (hypertension) ??? GERD (gastroesophageal reflux disease) ??? Depression ??? Hepatitis C Past Surgical History Procedure Laterality Date ??? Revision total hip arthroplasty bilateral for hip AVN ??? Spine surgery History Substance Use Topics ??? Smoking status: Former Smoker -- 0.10 packs/day for 42 years Types: Cigarettes ??? Smokeless tobacco: Former User Comment: STATES THAT HE STOPPED TWO MONTHS AGO 04/2015 ??? Alcohol Use: 10.5 oz/week 21 Standard drinks or equivalent per week Comment: OCC History Drug Use No Allergies Allergen Reactions ??? Morphine Other (See Comments) STATES THAT IT DOES NOT TAKE HIS PAIN AWAY Medications: MAR and/or home medications have been reviewed. Physical Exam: There were no vitals filed for this visit. There is no weight on file to calculate BMI. Airway Assessment: Mallampati: II TM distance: >3 FB Neck ROM: full Cardiovascular Assessment: Rhythm: regular Rate: normal cardiovascular exam normal Pulmonary Assessment: breath sounds clear to auscultation pulmonary exam normal Dental Assessment: (+) upper dentures and lower dentures Misc Assessment: Patient is wearing No contact(s). IV access: Peripheral line Anesthesia Plan: ASA 3 MAC, with a(n) intravenous induction Mahin Ramos is a 59 y.o. male presenting for upper endoscopy for evaluation of esophageal varicesin the setting of hepatitis C. Past medical history: HTN (hypertension) GERD (gastroesophageal reflux disease) Depression Hepatitis C Alcohol abuse Anxiety ADHD Chronic back pain GERD Past surgical history: Past Surgical History: REVISION TOTAL HIP ARTHROPLASTY Comment:bilateral for hip AVN SPINE SURGERY Labs: Lab Results Component Value Date WBC 10.6* 08/09/2015 RBC 4.73 08/09/2015 HGB 14.9 08/09/2015 HCT 44.8 08/09/2015 MCV 94.7* 08/09/2015 MCH 31.5 08/09/2015 MCHC 33.3 08/09/2015 PLATELET 326 08/09/2015 RDWCV 13.3 08/09/2015 No results for input(s): INR in the last 168 hours. No results found for: NA, K, CL, CO2, BUN, CREATININE, GLUCOSE Past anesthesia history: No prior complications with anesthesia. Last PO intake: Last consumed food last evening; last consumed water this AM around 05:00. Had a tic-tac on the way in this AM. No recent chest pain, shortness of breath, fever, cold, or cough. Patient can climb a flight of stairs without shortness of breath. Plan for monitored anesthesia care. Risks and benefits discussed. All questions answered. Region - Other Informed Consent: Anesthetic plan and risks discussed with patient. Plan discussed with DISTRICT SERVICE MANAGER and attending. PAT Staff Note documented in this encounter Plan of Treatment Upcoming Encounters Date Type Specialty Care Team Description 12/11/2021 Appointment Radiology 12/11/2021 Office Visit Orthopaedics Marion Tavera APRN [facility] MEDICAL [facility] ER ORTHOPAEDIC SURG [place], [place] [address] (Wo rk) 01/15/2022 Appointment Radiology Stiven Cervantes MD [facility] Medical [facility] Pulmonary Medici [place], [place] [address] (Wo rk) Scheduled Procedures Name [...] MAR Action Action Date Dose Rate Site fentaNYL 50 mcg/mL multi-dose Given 08/17/2015 9:36 AM EDT 100 m cg injection PRN, Starting on Christina 08/17/15 at 0936, Until Christina 08/17/15 at 1002, Pain, Anesthesia Intra-op, Routine lactated ringers infusion New Bag 08/17/2015 9:28 AM EDT 50 mL/hr, Intravenous, CONTINUOUS, Starting on Christina 08/17/15 at 0915, Until Christina 08/17/15 at 1026, Endoscopy (Day of Procedure) midazolam (PF) (VERSED) 1 mg/mL multi-dose Given 08/17/2015 9:36 AM EDT 2 mg injection PRN, Starting on Christina 08/17/15 at 0936, Until Christina 08/17/15 at 1002, Sleep, Anesthesia Intra-op, Routine propofol (DIPRIVAN) infusion New Bag 08/17/2015 9:30 AM 250 mcg/kg/min 144 mL/hr CONTINUOUS PRN, Starting on EDT Christina 08/17/15 at 0930, Until Christina 08/17/15 at 1002, Anesthesia Intra-op, Routine documented in this encounter Care Teams Seo Team Lead Relationship Specialty Start Date End Date Azalia Peña APRN PCP - General 11/19/13 03/19/17 documented as of this encounter
--- OUTSIDE RECORDS SUMMARY | 2021-11-30 08:24 | XMS_ITS | Encounter Summary ---
:1955 Author Organization [facility] Address [place] [address] Care Team Providers Name Role Phone Azalia Peña APRN Primary Care Provider Encounter Details Date Type Department Care Team Description 10/26/2015 Hospital Encounter XRay at [facility] Mohamud Gordon Left knee pain, [address] MD unspecified [place], [place] [facility] chronicity [id number] [place] [phone] [place] [address] Social History Tobacco Use Types Packs/Day Years [...] hours. #56 for a 7 day supply. tamsulosin (FLOMAX) 0.4 Reported on 0 10/05/2015 08/20/2016 mg Capsule, Sust. Release 07/08/2016 24 hr hydrOXYzine (ATARAX) 50 Reported on 0 10/06/2015 08/28/2016 mg Tablet 07/08/2016 traMADol (ULTRAM) 50 mg Take 100 mg [...] APRN [facility] DR ORTHOPAEDIC SURG [place], [place] [address] (Wo rk) 01/15/2022 Appointment Radiology Stiven Cervantes MD [facility] Pulmonary Medici [place], [place] [address] (Wo rk) Scheduled Procedures Name Priority Associated Diagnoses Date/Time DEBRIDEMENT SKIN, SUBCU, MUSCLE, R great toe amp utation, wound LOWER EXTREMITY (WRVU 2.7) closure MODIFIER WOUND VAC R great toe amputation, wound closure documented as of this encounter Procedures Procedure Name Priority Date/Time Associated Diagnosis Comme nts XR KNEE DIAGNOSTIC 1 Routine 10/26/2015 12:59 Left knee pain, Results for this OR 2 VIEW LEFT PM EDT unspecified procedure are in chronicity the results section. documented in this encounter Results XR Knee Diagnostic 1 [...] injury - l knee in jury - [facility] pain TECHNIQUE: Standing AP and lateral views [...] injury - l knee in jury - [facility] pain TECHNIQUE: Standing AP and lateral views [...] Diagnoses Diagnosis Left knee pain, unspecified chronicity documented in this encounter Care Teams Electric Spot Welder Relationship Specialty Start Date End Date Azalia Peña APRN PCP - General 11/19/13 03/19/17 documented as of this encounter
--- OUTSIDE RECORDS SUMMARY | 2021-11-30 08:24 | XMS_ITS | Encounter Summary ---
:1955 Author Organization [facility] [place] [address] Care Team Providers Name Role Phone Azalia Peña APRN Primary Care Provider Reason for Visit Reason Comments Left Knee Pain Encounter Details Date Type Department Care Team Description 11/28/2015 Office [place] [facility] [place]ory Avascular necrosis [facility] MD [place] [address] CENTER [phone] ORTHOPAEDICS [place], [place] [address] Social History Tobacco Use Types [...] Sign Reading Time Taken Comments Blood Pressure 108/91 11/28/2015 11:07 AM EDT Pulse 79 11/28/2015 11:07 AM EDT Temperature - - Respiratory Rate - - Oxygen Saturation 95% 11/28/2015 11:07 AM EDT Inhaled Oxygen Concentration - - Weight 96.3 kg (212 lb 6.4 11/28/2015 11:07 AM fully cl othed oz) EDT Height 174 cm (5' 8.5) 11/28/2015 11:07 AM with shoes EDT Body Mass Index 31.83 11/28/2015 11:07 AM EDT documented in this encounter Progress Notes Gordon Mallory MD - 11/28/2015 11:10 AM EDT Arthroplasty History/Previous Knee Surgery: 1. Bilateral NATHANAEL 16 years ago This note is recorded by Rick Avila RN acting as a scribe for Gordon Mallory MD. PREOPERATIVE VISIT Interval History: Mahin Ramos is a pleasant 60 y.o. year old male with AVN of the left knee being seen today to discuss a Left total knee arthroplasty. His history and physical exam were reviewed in detail. His history in regards to his knee was once again discussed and is outlined in my previous note. He states the knee pain and disability is worse since our previous visit. They have watched the shared decision video and at this point are expressing a desire to proceed with knee replacement. He does not endorse a history of DVT/PE or clotting Physical Exam: Exam is previously documented in my note and is essentially unchanged. Range of motion is 5-100. Inspection of his skin on the operative leg demonstrates Some skin breakdown. Significant Medical Comorbidities Patient Active Problem List Diagnosis Code ??? [...] K74.60 ??? Avascular necrosis of bone M87.00 VITALS: BP Readings from Last 1 Encounters: 11/28/15 (!) 108/91 Pulse Readings from Last 1 Encounters: 11/28/15 79 Height: 174 cm (5' 8.5) (with shoes) Weight - Scale: 96.3 kg (212 lb 6.4 oz) (fully clothed) Body mass index is 31.83 kg/(m^2). Relevant Lab Studies Lab Results Component Value Date WBC 13.4 (H) 11/14/2015 HGB 14.0 11/14/2015 HCT 42.1 11/14/2015 PLATELET 301 11/14/2015 CREATININE 1.06 11/14/2015 BUN 12 11/14/2015 NA 140 11/14/2015 K 4.6 11/14/2015 CRP 19.7 11/14/2015 SEDRATE 12 11/14/2015 INR 1.1 08/09/2015 No results for input(s): HA1C in the last 7068 hours. No results for input(s): ALBUMIN in the last 168 hours. Estimated Creatinine Clearance: 82.1 mL/min (based on Cr of 1.06). A Pos Component Value Date/Time SPGRAVITYUA 1.005 08/19/2012 2000 PHUADIP 7.0 08/19/2012 2000 PROTEINUADIP Negative 08/19/20121999 GLUCOSEU Negative 08/19/20121999 KETONESUA Negative 08/19/20121999 UROBILIUADIP 2.0 (A) 08/19/20121999 BLOODUADIP Negative 08/19/2012 2000 NITRATEUA Negative 08/19/20121999 LEUKOESTERUA Negative 08/19/20121999 WBCUA <1 08/19/2012 2000 BILIRUBINUA Negative 08/19/20121999 EKG: Sinus rhythm with marked sinus arrhythmia Normal ECG When compared with ECG of 19-AUG-2012 18:07, No significant change was found. Questionnaire Response [facility] Surgical Preop Visit 11/28/2015 PROMIS-10 General Health Fair PROMIS-10 Quality of Life Poor PROMIS-10 Physical Health Poor PROMIS-10 Mental Health Poor PROMIS-10 Social Activity Poor PROMIS-10 Everyday Activities A little PROMIS-10 Pain 8 PROMIS-10 Fatigue Moderate PROMIS-10 Social Roles Poor PROMIS-10 Anxious or Depressed Often PROMIS PHYSICAL SCORE (range 16-68) 29.6 PROMIS MENTAL SCORE (range 21-68) 25.1 Treatments Tried Acetaminophen (e.g. Tylenol) Consent to review records Yes, I give my permission for researchers to review my medical records. Consent to send data to AAR Yes, I give my permission for my data to become part of the national AJRR. [facility] Response 11/28/2015 KOOS-PS Scores 57.9 OSWESTRY DISABILITY INDEX - Spine [facility] Response 03/11/2014 Oswestry (NAEEM) Score 56 Radiographic Anaysis: Together, we reviewed his radiographs obtained previously which demonstrate degenerative joint disease. Kellgren-Axel Grade: 4= large osteophytes, marked narrowing, obvious deformity [0= normal; 1=minimal ; 2= some osteophytes , some narrowing ; 3= moderate osteophytes, significant narrowing, mild deformity; 4= large osteophytes, marked narrowing, obvious deformity] Assessment and Plan: This is a pleasant 60 y.o. year-old male who presents for a preoperative appointment today for Left knee OA. I had a long discussion with him regarding the risks and benefits of left total knee arthroplasty. I indicated that in my opinion, this is the treatment option most likely to restore a more normal, pain-free level of function and that we have exhausted reasonable non-operative alternatives. I used total knee implants to demonstrate how I perform the procedure and all of their questions were answered. Mr. Ramos expressed a desire to pursue this option. We then discussed in great detail the risks associated with the proposed surgery. These included butwere not limited to: bleeding (which may or may not require transfusion), infection, deep venous thrombosis, pulmonary embolus, prosthetic failure, loosening, prosthetic fracture, femur, tibia or patella fracture, dislocation, leg-length inequality, persistent pain, medical complications (including cardiac, respiratory and neurologic complications), anaesthetic complications, and . The patient seemed to understand the nature of this procedure's risks. We also discussed the likely benefit of impr nate stride length, improved range of motion, decreased pain, decreased need for pain medications and decrease functional limitations. The patient is aware that it would take on average of two days in the hospital, followed by approximately 12-18 months to full rehabilitation. I did review the history and physical today which says the patient is cleared for surgery and has nospecific recommendations for further testing. I reviewed the labs and did not identify anything thatwould warrant surgical delay. We discussed DNR status and he is a Full Code We reviewed options for postoperative DVT prophylaxis, based on AAOS guidelines. We discussed the pros and cons of ASA vs. Coumadin in terms of effectiveness and clot / embolus preventions vs. risks ofbleeding and wound complications. My review of the patient's risk factors leads me to believe that they are at moderate risk for a clot and low risk for a bleed. We will thus plan to use Aspirin 81mg BID for 30 days postoperatively for DVT prophylaxis. We also reviewed their preferences regarding use of blood products and confirmed that while we wouldendeavor to minimize the risks of needing any transfusions, if circumstances were such that one or more were indeed required, he would NOT refuse a blood transfusion. We discussed with them the possible discharge scenarios including going home versus needing to go toa rehab facility depending on how well their mobility progresses post-operatively. Their desire is to be discharged to Home. Any remaining questions were solicited from the patient and answered. Mr. Ramos wishes to proceed accordingly and informed consent was subsequently obtained for a LEFT total knee arthroplasty. We will avoid discharge on Naprosyn secondary to concern for potential adverse events. I ensured that the patient has the needed samples of hibiclens wash to use both the night before andthe morning of the anticipated surgery. I have personally evaluated the patient and agree with the above note as recorded by Rick Avila RN. Gordon Mallory MD, MS 11/28/2015 Dr Jacinto's [facility] Postoperative management recommendations: Dulera 100-5 micrograms 2 [...] 12/11/2021 Office Visit Orthopaedics Marion Tavera APRN [facility] DR ORTHOPAEDIC SURG [place], [place] [address] (Wo rk) 01/15/2022 Appointment Radiology Stiven Cervantes MD [facility] Pulmonary Medici [address], [place] [address] (Wo rk) Scheduled Procedures Name Priority Associated Diagnoses Date/Time DEBRIDEMENT SKIN, SUBCU, MUSCLE, R great toe amp utation, wound LOWER EXTREMITY (WRVU 2.7) closure MODIFIER WOUND VAC R great toe amputation, wound closure documented as of this encounter Visit Diagnoses Diagnosis Avascular necrosis bilateral knees Aseptic necrosis of bone, site unspecifi ed documented in this encounter Care Teams Clearance Rep Relationship Specialty Start Date End Date Azalia Peña APRN PCP - General 11/19/13 03/19/17 documented as of this encounter
--- OUTSIDE RECORDS SUMMARY | 2021-11-30 08:24 | XMS_ITS | Encounter Summary ---
:1955 Author Organization [facility] Address [facility] [place] [address] Care Team Providers Name Role Phone Azalia Peña APRN Primary Care Provider Reason for Visit Reason Comments Left Ankle Fracture Bilateral Knee Pain Encounter Details Date Type Department Care Team Description 07/25/2015 Office Visit Orthopaedics at [facility] [place] Gordon Mallory Ankle fracture, left; [facility] MD Sd Bilateral chronic knee pain; [facility] Avascular [place] [address] CENTER [phone] ORTHOPAEDICS [place], [place] [address] Social History Tobacco Use Types [...] Sign Reading Time Taken Comments Blood Pressure 128/78 07/25/2015 2:33 PM EDT Pulse 82 07/25/2015 2:33 PM EDT Temperature - - Respiratory Rate - - Oxygen Saturation - - Inhaled Oxygen Concentration - - Weight 93 kg (205 lb) 07/25/2015 2:33 PM EDT verbal Height 175.3 cm (5' 9) 07/25/2015 2:33 PM EDT Body Mass Index 30.27 07/25/2015 2:33 PM EDT documented in this encounter Progress Notes Gordon Mallory MD - 08/14/2015 1:12 PM EDT I performed a history and physical examination of the patient and discussed the management plan withSHILOH Case. I also discussed the different treatment options, as well as the risks and benefits of each with the patient and questions were answered. I reviewed the note and agree with the documented findings and plan of care. Gordon Mallory MD, BECKY Alma Randolph - 07/25/2015 1:37 PM EDT Mahin Ramos presents to the clinic for a cast off per Arcadio Aggarwal PA-C. The cast was worn out on the bottom and wet upon arrival. The patient was explained how the cast saw works and the cast was removed. The patient tolerated this procedure well. The patient's skin was slightly macerated on the bottom of his foot.The patient was then sent to x-ray. documented in this encounter Plan of Treatment Upcoming Encounters Date Type Specialty Care Team Description 12/11/2021 Appointment Radiology 12/11/2021 Office Visit Orthopaedics Marion Tavera APRN [facility] ORTHOPAEDIC SURG [place], [place] [address] (Wo rk) 01/15/2022 Appointment Radiology Stiven Cervantes MD [facility] Pulmonary Medici [place], [place] [address] (Wo rk) Scheduled Procedures Name Priority Associated Diagnoses Date/Time DEBRIDEMENT SKIN, SUBCU, MUSCLE, R great toe amp utation, wound LOWER EXTREMITY (WRVU 2.7) closure MODIFIER WOUND VAC R great toe amputation, wound closure documented as of this encounter Results XR TKA First Po Visit Alignment AP Lat [place] Right (01/16/2016 1:24 PM EDT) Anatomical Region [...] the medi al aspect of the proximal tunica-biloxi left tibia again appreciated and stable. Smal [...] the medi al aspect of the proximal tunica-biloxi left tibia again appreciated and stable. Smal [...] described. Gordon Mallory MD IMG DX ORDERABLES High Sensitivity CRP (11/14/2015 1:11 PM EDT) athologist Signature CRP High Sens 19.7 mg/L [facility] Comment: Interpretations: 1) For accurate cardiac [...] the test package insert) References: 1. Kendy TA et. al. ??AHA/CDC Scientif ic Statement: Markers [...] Organization Address City/State/[place] [address] Sedimentation rate (11/14/2015 1:11 PM EDT) athologist Signature Sed Rate 12 0 - 15 [facility] mm/hr [facility] Specimen Anatomical Collection Method Collection Time Receive d Time (Source) Location / / Volume Laterality Blood specimen 11/14/2015 1:11 PM 016 1:16 (specimen) EDT PM EDT Resulting Agency Comment Spec In Lab Gordon Mallory MD HEMATOLOGY ORDERABLES Performing Organization Address City/State/ZIP [place] [address] Basic Metabolic Panel (non-fasting) (11/14/2015 1:11 PM EDT) athologist Signature Glucose Lvl 101 65 - 199 [facility] mg/dL [facility] Comment: Diabetes: >=200 mg/dL plus symp toms BUN 12 10 - 20 mg/dL [facility] Creatinine 1.06 0.80 - 1.50 mg/dL [facility] Comment: Please note that the pediatric reference intervals supplied above were not validated at [facility]. Results from pediatri c patients should be interpreted in conjunction to the patient's age, height and muscle mass. Sodium 140 135 - 145 mmol/L [facility] Potassium 4.6 3.5 - 5.0 mmol/L [facility] Comment: Please note: ??Patients with WBC >100,00 0 may have falsely elevated Potassium levels. ??For accurate Potassium quantif ication in these patients send serum separator tube (gold top) for subsequent determinations. ??Contact the Clinical Chemistry Laboratory if there are any qu estions. Chloride 99 98 - 107 mmol/L [facility] CO2 29 22 - 31 mmol/L [facility] Anion Gap 12 5 - 15 mmol/L [facility] Calcium 9.1 8.5 - 10.5 mg/dL [facility] Estimated GFR >60 >=60 [facility] [...] the following links into your internet browser. [email or web address] Specimen Anatomical Collection Method Collection Time Receive d Time (Source) Location / / Volume Laterality Blood specimen 11/14/2015 1:11 PM 016 1:16 (specimen) EDT PM EDT Resulting Agency Comment Spec In Lab Gordon Mallory MD CHEMISTRY ORDERABLES Performing Organization Address City/[facility]/[place] [address] EKG 12 Lead (11/14/2015 1:04 PM EDT) Component Value Ref Range Test Analysis Performed Pathologis t Method Time At Signature Ventricular rate 62 BPM MUSE SYSTEM Atrial Rate 62 BPM MUSE SYSTEM P-R Interval 166 ms MUSE SYSTEM QRS Duration 66 ms MUSE SYSTEM Q-T Interval 440 ms MUSE SYSTEM QTC Calculated 446 ms MUSE SYSTEM (Bezet) Calculated P [place] 58 degrees MUSE SYSTEM Calculated R [place] 50 degrees MUSE SYSTEM Calculated T [place] 58 degrees MUSE SYSTEM INTERPRETATION Sinus rhythm with marked sinus arrhythmia MUSE SYSTEM Normal ECG When compared with ECG of 19-AUG-2012 18:07, No significant change was found Confirmed by MD Jacob, Cristian ([id number]) on 11/15/2015 9:15:11 AM Specimen Anatomical Collection Method Collection Time Receive d Time (Source) Location / / Volume Laterality 11/14/2015 1:04 PM 6 9:15 EDT AM EDT Gordon Mallory MD ECG ORDERABLES Performing Organization Address City/State/ZIP Code Phon e Number MUSE SYSTEM XR Ankle Minimum 3 Views Left (GENERIC) [...] Aseptic necrosis of bone, site unspecifi ed Ankle fracture, left Unspecified closed fracture of ankle Ankle fracture, left Unspecified closed fracture of ankle Bilateral chronic knee pain Pain in joint, lower leg Avascular necrosis bilateral knees Aseptic necrosis of bone, site unspecifi ed documented in this encounter Care Teams Commercial Escrow Officer Relationship Specialty Start Date End Date Azalia Peña APRN PCP - General 11/19/13 03/19/17 documented as of this encounter
--- OUTSIDE RECORDS SUMMARY | 2021-11-30 08:25 | XMS_ITS | Encounter Summary ---
:1955 Author Organization [facility] Address [facility] [address] [place] [address] Care Team Providers Name Role Phone Azalia Peña APRN Primary Care Provider Reason for Visit Reason Onset Date Comments Other 09/06/2014 results Encounter Details Date Type Department Care Team Description 09/06/2014 Telephone [place] [facility] [place], Ashlee (results) [facility] [place] [address] Social History Tobacco Use Types Packs/Day Years Used Date Current Some Day Smoker Cigarettes 0.25 42 Smokeless Tobacco: Former User Comments: electronic Alcohol Use Standard Drinks/Week Comments Yes 17.5 (1 standard drink = 0.6 oz pure alc ohol) twisted tea Alcohol Habits Answer Date Recorded How often do you have a drink containing alcohol? Not asked How many drinks containing alcohol do you have on a typical Not asked day when you are drinking? How often do you have six or more drinks on one occasion? No t asked Comment: twisted tea 08/19/2012 Sex Assigned at Date Recorded Not on file documented as of this encounter Miscellaneous Notes Telephone Encounter - Sirena Montana RN - 09/06/2014 2:50 PM EDT Mahin called and left message that he had his labs and xray done. He is hoping to speak to Dr. Silva about the results. documented in this encounter Plan of Treatment Upcoming Encounters Date Type Specialty Care Team Description 12/11/2021 Appointment Radiology 12/11/2021 Office Visit Orthopaedics Marion Tavera APRN [facility] ORTHOPAEDIC SUR[place], [place] [address] (Wo rk) 01/15/2022 Appointment Radiology Stiven Cervantes MD [facility] Pulmonary Medici [place], [place] [address] (Wo rk) Scheduled Procedures Name Priority Associated Diagnoses Date/Time DEBRIDEMENT SKIN, SUBCU, MUSCLE, R great toe amp utation, wound LOWER EXTREMITY (WRVU 2.7) closure MODIFIER WOUND VAC R great toe amputation, wound closure documented as of this encounter Visit Diagnoses Not on filedocumented in this encounter Care Teams Radiocommunications Technician Relationship Specialty Start Date End Date Azalia Peña APRN PCP - General 11/19/13 03/19/17 documented as of this encounter
--- OUTSIDE RECORDS SUMMARY | 2021-11-30 08:25 | XMS_ITS | Encounter Summary ---
:1955 Author Organization [facility] [place] [address] Care Team Providers Name Role Phone Azalia Peña APRN Primary Care Provider Encounter Details Date Type Department Care Team Description 09/19/2014 Telephone [place] [facility] [place]o Silva MD [facility] [place] [address] RHEUMATOLOGY DEPT [phone] [place], [place] [address] (Wo rk) Social History Tobacco [...] this encounter Miscellaneous Notes Telephone Encounter - Majo Silva MD - 09/19/2014 1:52 PM EDT I spoke to Mahin regarding his results - he will f/u with neurology, and also with GI (although needs to be off alcohol for a certain period of time before being eligible for treatment for his hep C). documented in this encounter Plan of Treatment Upcoming Encounters Date Type Specialty Care Team Description 12/11/2021 Appointment Radiology 12/11/2021 Office Visit Orthopaedics Marion Tavera APRN [facility] ORTHOPAEDIC SURG [place], [place] [address] (Wo rk) 01/15/2022 Appointment Radiology Stiven Cervantes MD [facility] Pulmonary Medici [place], [place] [address] (Wo rk) Scheduled Procedures Name Priority Associated Diagnoses Date/Time DEBRIDEMENT SKIN, SUBCU, MUSCLE, R great toe amp utation, wound LOWER EXTREMITY (WRVU 2.7) closure MODIFIER WOUND VAC R great toe amputation, wound closure documented as of this encounter Visit Diagnoses Not on filedocumented in this encounter Care Teams Medical Housekeeper Relationship Specialty Start Date End Date Azalia Peña APRN PCP - General 11/19/13 03/19/17 documented as of this encounter
--- OUTSIDE RECORDS SUMMARY | 2021-11-30 08:25 | XMS_ITS | Encounter Summary ---
:1955 Author Organization [facility] [place] [address] Care Team Providers Name Role Phone Azalia Peña APRN Primary Care Provider Encounter Details Date Type Department Care Team Description 06/12/2015 Telephone Care Management Mago Reid [facility] [place] [address] Social History Tobacco Use Types Packs/Day Years Used Date Current Some Day Smoker Cigarettes 0.1 42 Smokeless Tobacco: Former User Comments: Working on quitting, Only smok es about 2 cigarettes a day but only a couple puffs then puts them out Alcohol Use Standard Drinks/Week Comments Yes 17.5 (1 standard drink = 0.6 oz pure lat terrell vary rarely, no longer alcohol) 21/week Alcohol Habits Answer Date Recorded How often do you have a drink Not asked containing alcohol? How many drinks containing alcohol do Not asked you have on a typical day when you are drinking? How often do you have six or more Not asked drinks on one occasion? Comment: lately vary rarely, no longer 04/11/2015 21/week Sex Assigned at Date Recorded Not on file documented as of this encounter Miscellaneous Notes Telephone Encounter - Mago Collazo - 06/12/2015 11:47 AM EST Spoke with pt about upcoming total joint replacement with Dr. Mallory. Pt informed that he has broken his ankle and will be coming to [facility] tomorrow for x- rays and an appointment with Dr. Mallory. Informed pt that designer writer will call again if he will be having surgery. documented in this encounter Plan of Treatment Upcoming Encounters Date Type Specialty Care Team Description 12/11/2021 Appointment Radiology 12/11/2021 Office Visit Orthopaedics Marion Tavera APRN [facility] DR ORTHOPAEDIC SURG [place], [place] [address] (Wo rk) 01/15/2022 Appointment Radiology Stiven Cervantes MD [facility] er Pulmonary Medici [place], [place] [address] (Wo rk) Scheduled Procedures Name Priority Associated Diagnoses Date/Time DEBRIDEMENT SKIN, SUBCU, MUSCLE, R great toe amp utation, wound LOWER EXTREMITY (WRVU 2.7) closure MODIFIER WOUND VAC R great toe amputation, wound closure documented as of this encounter Visit Diagnoses Not on filedocumented in this encounter Care Teams Concrete Truck Driver Relationship Specialty Start Date End Date Azalia Peña APRN PCP - General 11/19/13 03/19/17 documented as of this encounter
--- OUTSIDE RECORDS SUMMARY | 2021-11-30 08:25 | XMS_ITS | Encounter Summary ---
:1955 Author Organization [facility] [place] [address] Care Team Providers Name Role Phone Azalia Peña APRN Primary Care Provider Encounter Details Date Type Department Care Team Description 06/05/2015 Telephone Orthopaedics at [facility] Lidia Rodríguez, [place] [address] Social History Tobacco Use Types Packs/Day [...] this encounter Miscellaneous Notes Telephone Encounter - Lidia Rodríguez, RN - 06/05/2015 2:14 PM EST TC to pt regarding 06/04/15 left ankle injury. Pt explains that he woke up and got out of bed about 1am and had a terrible pain in his left ankle. He proceeded to ED and was placed in a splint. He wasgiven Percocet for pain relief. After consulting with Dr. Mallory, orthopaedics will cancel upcoming pre operative appointments forhim on 06/06/15. He will f/u with Dr. Mallory on 06/13/15 for his left ankle. documented in this encounter Plan of Treatment Upcoming Encounters Date Type Specialty Care Team Description 12/11/2021 Appointment Radiology 12/11/2021 Office Visit Orthopaedics Marion Tavera , [facility] ORTHOPAEDIC SURG [place], [place] [address] (Wo rk) 01/15/2022 Appointment Radiology Stiven Cervantes MD [facility] Pulmonary Medici [place], [place] [address] (Wo rk) Scheduled Procedures Name Priority Associated Diagnoses Date/Time DEBRIDEMENT SKIN, SUBCU, MUSCLE, R great toe amp utation, wound LOWER EXTREMITY (WRVU 2.7) closure MODIFIER WOUND VAC R great toe amputation, wound closure documented as of this encounter Visit Diagnoses Not on filedocumented in this encounter Care Teams Dinkey Engine Firer Relationship Specialty Start Date End Date Azalia Peña APRN PCP - General 11/19/13 03/19/17 documented as of this encounter
--- OUTSIDE RECORDS SUMMARY | 2021-11-30 08:25 | XMS_ITS | Encounter Summary ---
:1955 Author Organization [facility] [place] [address] Care Team Providers Name Role Phone Azalia Peña APRN Primary Care Provider Encounter Details Date Type Department Care Team Description 06/28/2015 Telephone [place] [facility] Lidia Rodríguez, [place] [address] Social History Tobacco Use Types Packs/Day [...] encounter Miscellaneous Notes Telephone Encounter - Lidia Rodríguez RN - 06/28/2015 8:32 AM EST TC from pt explaining that his cast is loose enough from him to flex his foot. He had a short leg cast on the left side placed 06/13/15. Cast change appt made for today at 1315. documented in this encounter Plan of Treatment Upcoming Encounters Date Type Specialty Care Team Description 12/11/2021 Appointment Radiology 12/11/2021 Office Visit Orthopaedics Marion Tavera APRN [facility] ORTHOPAEDIC SURG [place], [place] [address] (Wo rk) 01/15/2022 Appointment Radiology Stiven Cervantes MD [facility] Pulmonary Medici [place], [place] [address] (Wo rk) Scheduled Procedures Name Priority Associated Diagnoses Date/Time DEBRIDEMENT SKIN, SUBCU, MUSCLE, R great toe amp utation, wound LOWER EXTREMITY (WRVU 2.7) closure MODIFIER WOUND VAC R great toe amputation, wound closure documented as of this encounter Visit Diagnoses Not on filedocumented in this encounter Care Teams Chlorinator Operator Relationship Specialty Start Date End Date Azalia Peña APRN PCP - General 11/19/13 03/19/17 documented as of this encounter
--- OUTSIDE RECORDS SUMMARY | 2021-11-30 08:25 | XMS_ITS | Encounter Summary ---
:1955 Author Organization [facility] [place] [address] Care Team Providers Name Role Phone Azalia Peña APRN Primary Care Provider Reason for Visit Reason Onset Date Comments Questions 04/14/2015 Encounter Details Date Type Department Care Team Description 04/14/2015 Telephone Orthopaedics at [facility] Мария Jeter RMA Questions [facility] [place] [address] Social History Tobacco Use Types Packs/Day Years [...] Telephone Encounter - Lidia Rodríguez RN - 04/25/2015 3:10 PM EST TC to pt that his surgical case is being looked at by national experts and that he will have feed back from Dr. Mallory as soon as it is available. He understood this and will wait for a response. Telephone Encounter - Мария Jeter RMA - 04/14/2015 3:39 PM EST Mahin calls wondering when he will hear from regarding a plan for surgery. He states hewas told that he was going to call on but he was not sure what . Mahin states his pain is 8-10 and has taken pain meds for it and it knocks it down some. I told him that a message would be sent to the Dr.He was good with this plan. documented in this encounter Plan of Treatment Upcoming Encounters Date Type Specialty Care Team Description 12/11/2021 Appointment Radiology 12/11/2021 Office Visit Orthopaedics Marion Tavera APRN [facility] ORTHOPAEDIC SURG [place], [place] [address] (Wo rk) 01/15/2022 Appointment Radiology Stiven Cervantes MD [facility] Pulmonary Medici [place], [place] [address] (Wo rk) Scheduled Procedures Name Priority Associated Diagnoses Date/Time DEBRIDEMENT SKIN, SUBCU, MUSCLE, R great toe amp utation, wound LOWER EXTREMITY (WRVU 2.7) closure MODIFIER WOUND VAC R great toe amputation, wound closure documented as of this encounter Visit Diagnoses Not on filedocumented in this encounter Care Teams Dowel Sander Operator Relationship Specialty Start Date End Date Azalia Peña APRN PCP - General 11/19/13 03/19/17 documented as of this encounter
--- OUTSIDE RECORDS SUMMARY | 2021-11-30 08:25 | XMS_ITS | Encounter Summary ---
:1955 Author Organization [facility] [place] [address] Care Team Providers Name Role Phone Azalia Peña APRN Primary Care Provider Encounter Details Date Type Department Care Team Description 06/08/2015 Orders Only Orth[place]ed[place] [facility] Gordon Mallory, Pain in joint of left [facility] [place] [address] ORTHOPAEDICS [place], [place] [address] Social History Tobacco Use Types [...] Tavera APRN [facility] ORTHOPAEDIC SURG [place], [place] [address] (Wo rk) 01/15/2022 Appointment Radiology Stiven Cervantes MD [facility] er Dr Carlos villegas [place], [place] [address] (Wo rk) Scheduled Procedures Name Priority Associated Diagnoses Date/Time DEBRIDEMENT SKIN, SUBCU, MUSCLE, R great toe amp utation, wound LOWER EXTREMITY (WRVU 2.7) closure MODIFIER WOUND VAC R great toe amputation, wound closure documented as of this encounter Results XR Ankle Minimum 3 Views Left (GENERIC) (06/13/2015 10:09 AM EST) Anatomical Region Laterality Modality Ankle Left Digital Radiography Specimen (Source) Anatomical Location Collection Method / Collectio n Time Received Time / Laterality Volume Narrative 06/13/2015 11:06 AM EST EXAMINATION: XR ANKLE MINIMUM 3 VIEWS LEFT CLINICAL HISTORY: Lt ??Ankle Fracture DO I 06/04/15 TECHNIQUE: Three views left ankle COMPARISON: 05/17/2015. FINDINGS: There has been no interval change in pos ition of the nondisplaced intra-articular fracture of the medial m alleolus. Overlying cast obscures bone detail. The ankle joint mortise is congr uent. ?? Procedure Note Edi Carver MD - 06/13/2015Format ting of this note might be different from the original. EXAMINATION: XR ANKLE MINIMUM 3 VIEWS LE FT CLINICAL HISTORY: Lt Ankle Fracture DOI 06/04/15 TECHNIQUE: Three views left ankle COMPARISON: 05/17/2015. FINDINGS: There has been no interval change in pos ition of the nondisplaced intra-articular fracture of the medial m alleolus. Overlying cast obscures bone detail. The ankle joint mortise is congr uent. Gordon Mallory MD IMG DX ORDERABLES documented in this encounter Visit Diagnoses Diagnosis Pain in joint of left ankle or foot Pain in joint, ankle and foot Pain in joint of left ankle or foot Pain in joint, ankle and foot documented in this encounter Care Teams Tube And Rod Straightener Relationship Specialty Start Date End Date Azalia Peña APRN PCP - General 11/19/13 03/19/17 documented as of this encounter
--- OUTSIDE RECORDS SUMMARY | 2021-11-30 08:25 | XMS_ITS | Encounter Summary ---
:1955 Author Organization [facility] [place] [address] Care Team Providers Name Role Phone Azalia Peña APRN Primary Care Provider Reason for Visit Reason Comments Bilateral Knee Pain Encounter Details Date Type Department Care Team Description 04/11/2015 Office Visit Orthopaedics at [facility] [place] [place] Gordon Mallory Avascular necrosis [facility] MD [place] [address] CENTER [phone] ORTHOPAEDICS [place], [place] [address] Social History Tobacco Use Types Packs/Day Years Used Date Current Some Day Smoker Cigarettes 0.1 42 Smokeless Tobacco: Former User Tobacco Cessation: Ready to Quit: Yes Comments: Working on quitting, Only smok es [...] Sign Reading Time Taken Comments Blood Pressure 126/86 04/11/2015 10:29 AM EST Pulse 103 04/11/2015 10:29 AM EST Temperature - - Respiratory Rate - - Oxygen Saturation - - Inhaled Oxygen Concentration - - Weight 92.3 kg (203 lb 6.4 04/11/2015 10:29 AM fully cl othed oz) EST Height 174 cm (5' 8.5) 04/11/2015 10:29 AM verbal EST Body Mass Index 30.48 04/11/2015 10:29 AM EST documented in this encounter Progress Notes Gordon Mallory MD - 05/18/2015 8:39 AM EST I performed a history and physical examination of the patient and discussed the management plan withDr. Carreon. I also discussed the different treatment options, as well as the risks and benefits ofeach with the patient and questions were answered. I reviewed the note and agree with the documentedfindings and plan of care. Gordon Mallory MD, BECKY Meli Carreon MD - 04/11/2015 11:48 AM EST CHIEF COMPLAINT: Bilateral knee pain. SUBJECTIVE: Mr. 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 He has been diagnosed with this problem in his bilateral knees and has severely debilitating pain from this. He has had several injections into the left knee that have not helped at all. He is debilitated to the point where he can really only walk a few steps at a time. He is also reporting some left ankle pain that he is concerned may be related to his extensive avascular necrosis. He has been told that he needs knee replacements, but that the surgery would be complicated given the extent of his bone involvement. EXAM: General: Well-appearing elderly male in no apparent distress. Left Lower Extremity: He has approximately 3 to 5 degrees flexion contracture on the left. There is no effusion. His knee is stable to varus and valgus and AP translation. He has intact 2+ DP and PT pulses. He has intact sensation in motor in the extremity distally. Right Lower Extremity: He has approximately 3-degree flexion contracture with the right knee. Knee is stable to varus, valgus and AP translation in flexion and extension. He has 2+ DP and PT pulses. Neurovascularly intact with normal motor in the knee distally in the extremity. IMAGING: MRI from outside facility of bilateral knees demonstrates avascular necrosis of both femur and tibia bilaterally. Left side is worse than right. There is extensive femoral involvement that involves much of the distal femur and in fact goes up somewhat proximally in the femoral shaft. ASSESSMENT AND PLAN: Mr. Ramos is a 59-year-old gentleman with severe avascular necrosis of both knees that is causing him debilitating pain. We discussed with him today that he has a very difficult problem and we will certainly need to address his in some kind of surgical capacity, he does not have a straight forward knee. We will plan to present his case to the arthroplasty department at our next Indications Conference to discuss various surgical options which can include distal femoral replacement versus bone grafting and cementing and smaller prosthesis. He also has the consideration that he has the bilateral hip replacement stems in his proximal femora. We also discussed the fact that he needs to quit smoking for at least six weeks before we could do any surgery given the increased risk of complications particularly if we elect to do a distal femoral replacement. We will present his case and call him when we have the surgical plan in place. I have made the following determinations: Knee Exam: Left Prior surgery on this joint: No Knee ROM: Extension:5 Flexion: 100 Alignment: 0-4 degrees Neutral Stability: A/P Translation <5mm Varus (lateral stability) <5mm Valgus (medial stability) <5mm Extension La degrees or less Radiographic evidence of joint damage: [0= normal; 1=minimal ; 2= some osteophytes , some narrowing ; 3= moderate osteophytes, significant narrowing, mild deformity; 4= large osteophytes, marked narrowing, obvious deformity]: 2= some osteophytes, some narrowing Patella Tracking: Normal Skin Integrity: Normal Pulses Palpable: Left PT:Yes Left DP:Yes Motor/Sensory: Distal Motor:Normal Distal Sensory: Normal Quadriceps Strength:5 I have made the following determinations: Knee Exam: Right Prior surgery on this joint: No Knee ROM: Extension:5 Flexion: 100 Alignment: 0-4 degrees Neutral Stability: A/P Translation <5mm. Varus (lateral stability) <5mm Valgus (medial stability) <5mm Extension La degrees or less Radiographic evidence of joint damage: [0= normal; 1=minimal ; 2= some osteophytes , some narrowing ; 3= moderate osteophytes, significant narrowing, mild deformity; 4= large osteophytes, marked narrowing, obvious deformity]: 2= some osteophytes, some narrowing Patella Tracking: Normal Skin Integrity: Normal Pulses Palpable: Right PT: Yes Right DP:Yes Motor/Sensory: Distal Motor: Normal Distal Sensory: Normal Quadriceps Strength: 5 documented in this encounter Plan of Treatment Upcoming Encounters Date Type Specialty Care Team Description 12/11/2021 Appointment Radiology 12/11/2021 Office Visit Orthopaedics Marion Tavera APRN [facility] ORTHOPAEDIC SURG [place], [place] [address] (Wo rk) 01/15/2022 Appointment Radiology Stiven Cervantes MD [facility] Pulmonary Medici [place], [place] [address] (Wo rk) Scheduled Procedures Name Priority Associated Diagnoses Date/Time DEBRIDEMENT SKIN, SUBCU, MUSCLE, R great toe amp utation, wound LOWER EXTREMITY (WRVU 2.7) closure MODIFIER WOUND VAC R great toe amputation, wound closure documented as of this encounter Visit Diagnoses Diagnosis Avascular necrosis bilateral knees Aseptic necrosis of bone, site unspecifi ed documented in this encounter Care Teams Antique Finisher Relationship Specialty Start Date End Date Azalia Peña APRN PCP - General 11/19/13 03/19/17 documented as of this encounter
--- OUTSIDE RECORDS SUMMARY | 2021-11-30 08:25 | XMS_ITS | Encounter Summary ---
:1955 Author Organization [facility] [place] [address] Care Team Providers Name Role Phone Azalia Peña APRN Primary Care Provider Encounter Details Date Type Department Care Team Description 04/21/2015 Telephone [place] [facility] [place] Ann Ramon, [place] [address] Social History Tobacco Use Types Packs/Day Years [...] Encounter - Carol Ann Alicea RN - 04/21/2015 3:44 PM EST Call from patient inquiring if Mony Hernandez has made a decision about the next steps for his knee pain, he states he has called once before on 04/14 and did not receive a call back. Instructed patientwould get his message to Dr. Mallory. Patient agreed with this plan. documented in this encounter Plan of Treatment Upcoming Encounters Date Type Specialty Care Team Description 12/11/2021 Appointment Radiology 12/11/2021 Office Visit Orthopaedics Marion Tavera APRN [facility] DR ORTHOPAEDIC SURG [place], [place] [address] (Wo rk) 01/15/2022 Appointment Radiology Stiven Cervantes MD [facility] Pulmonary Medici [place], [place] [address] (Wo rk) Scheduled Procedures Name Priority Associated Diagnoses Date/Time DEBRIDEMENT SKIN, SUBCU, MUSCLE, R great toe amp utation, wound LOWER EXTREMITY (WRVU 2.7) closure MODIFIER WOUND VAC R great toe amputation, wound closure documented as of this encounter Visit Diagnoses Not on filedocumented in this encounter Care Teams Circuit Clerk Relationship Specialty Start Date End Date Azalia Peña APRN PCP - General 11/19/13 03/19/17 documented as of this encounter
--- OUTSIDE RECORDS SUMMARY | 2021-11-30 08:25 | XMS_ITS | Encounter Summary ---
:1955 Author Organization [facility] [place] [address] Care Team Providers Name Role Phone Azalia Peña APRN Primary Care Provider Encounter Details Date Type Department Care Team Description 09/13/2014 Telephone Rheumatology at [facility] [place] Majo Silva MD [facility] [place] [address] RHEUMATOLOGY DEPT [phone] [place], [place] [address] (Wo rk) Social History Tobacco [...] Telephone Encounter - Majo Silva MD - 09/13/2014 4:28 PM EDT Called Mahin to relay results of his labs and xrays - final results available today. I left a message on his machine and informed him I would leave a detailed note with nursing in case of phone tag. - CBC notable for WBC 13.4 (but better than last WBC) - CMP notable for K 3.4, Cre 1.09, anion gap 17 - ESR 9 - normal, CRP 8.7 (mildly elevated) - SPEP negative - HUANG mildly positive at 1:80, and ANTIONE SS-B (La antibody) is positive - RF mildly positive, immunoglobulins wnl - normal complements C3/C4/CH50 - trace positive cryoglobulins at 72 hours Foot xrays show hammer toes, and osteoarthritis. Mahin's lab results do not suggest a definitive diagnosis - his HUANG is mildly positive, and along with SS-B and RF antibodies suggest possible sjogren's (which could cause a peripheral neuropathy which may be contributing to his symptoms). His cryos are trace positive (and could be from the hep C andcould also contribute to his symptoms). Xrays of the feet show OA. It is hard to know if his symptoms are from neuropathic pain vs. Osteoarthritic pain, hepatitis C or possible sjogren's arthropathy, or a combination of several possible etiologies. It is also unclear as to whether or not his sxs are due to a rheumatologic cause, years of ETOH abuse, active hep C, or other (diabetes? Toxins?) . His complements are normal suggesting that vasculitis/mononeuritis multiplex may not be the underlying cause, however I'd like to check more labs to help with diagnosis. I'd also like him to f/u with GI as soon as possible, and I've referred him to Neurology as well for EMG studies. I'm reluctant to empirically treat with anything other than possibly hydroxychloroquine until Neurology sees him. documented in this encounter Plan of Treatment Upcoming Encounters Date Type Specialty Care Team Description 12/11/2021 Appointment Radiology 12/11/2021 Office Visit Orthopaedics Marion Tavera APRN [facility] [address] ORTHOPAEDIC SURG [place], [place] [address] (Jorge arzate) 01/15/2022 Appointment Radiology Stiven Cervantes MD [facility] Pulmonary Medici n[place], [place] [address] (Jorge arzate) Scheduled Procedures Name Priority Associated Diagnoses Date/Time DEBRIDEMENT SKIN, SUBCU, MUSCLE, R great toe amp utation, wound LOWER EXTREMITY (WRVU 2.7) closure MODIFIER WOUND VAC R great toe amputation, wound closure documented as of this encounter Visit Diagnoses Diagnosis Peripheral neuropathy Unspecified hereditary and idiopathic pe ripheral neuropathy Right foot pain Pain in limb Left foot pain Pain in limb documented in this encounter Care Teams Chute Tapper Relationship Specialty Start Date End Date Azalia Peña APRN PCP - General 11/19/13 03/19/17 documented as of this encounter
--- OUTSIDE RECORDS SUMMARY | 2021-11-30 08:25 | XMS_ITS | Encounter Summary ---
:1955 Author Organization [facility] Address [facility] [address] [place] [address] Care Team Providers Name Role Phone Azalia Peña APRN Primary Care Provider Reason for Visit Reason Onset Date Comments Questions 05/09/2015 patient thought of q uestions he would like to ask after speaking with Dr. Mallory Encounter Details Date Type Department Care Team Description 05/09/2015 Telephone Orthopaedics at [facility] [place] Gordon Mallory, Questions (patient [facility] Jenni [place] [address] [facility] he would like to ask [phone] DR after speaking with ORTHOPAEDICS Dr. Mallory) [place], [place] [address] Social History Tobacco Use Types [...] this encounter Miscellaneous Notes Telephone Encounter - Johanna Ramon RN - 05/09/2015 11:48 AM EST TELEPHONE CALL FROM: Patient RE: Questions below. Questions answered. Patient expressed an interest in moving forward with sx as described by . Dr. Mallory notified and will do the booking orders. Patient o be seen here again for his Pre Op visit Telephone Encounter - Soy Neri - 05/09/2015 11:21 AM EST Who is calling: Mahin Ramos What is the question: Patient called back looking for Dr. Mallory. Patient has further questions about surgery. Patient apologizes for any confusion but is looking for some clarification. 1: where does bone for graft come from? 2: for the new joint do they cut off the existing bone. Best number to reach the caller: [phone] documented in this encounter Plan of Treatment Upcoming Encounters Date Type Specialty Care Team Description 12/11/2021 Appointment Radiology 12/11/2021 Office Visit Orthopaedics Marion Tavera APRN [facility] DR ORTHOPAEDIC SURG [place], [place] [address] (Wo rk) 01/15/2022 Appointment Radiology Stiven Cervantes MD [facility] Pulmonary Medici [place], [place] [address] (Wo rk) Scheduled Procedures Name Priority Associated Diagnoses Date/Time DEBRIDEMENT SKIN, SUBCU, MUSCLE, R great toe amp utation, wound LOWER EXTREMITY (WRVU 2.7) closure MODIFIER WOUND VAC R great toe amputation, wound closure documented as of this encounter Visit Diagnoses Not on filedocumented in this encounter Care Teams Weaver [employer] Fab[employer] Relationship Specialty Start Date End Date Azalia Peña APRN PCP - General 11/19/13 03/19/17 documented as of this encounter
--- OUTSIDE RECORDS SUMMARY | 2021-11-30 08:25 | XMS_ITS | Encounter Summary ---
:1955 Author Organization [facility] Address [facility] [address] [place] [address] Care Team Providers Name Role Phone Azalia Peña APRN Primary Care Provider Encounter Details Date Type Department Care Team Description 09/09/2014 Orders Only Rheumatology at [facility] Majo Silva MD Positive HUANG (antinuclear antibody); [facility] Per ipheral [place] [address] RHEUMATOLOGY DEPT [phone] [place], [place] [address] Social History Tobacco Use Types [...] Marion Tavera APRN [facility] DR ORTHOPAEDIC SURG [place], [place] [address] (Wo rk) 01/15/2022 Appointment Radiology Atkins, Stiven T , MD [facility] er Pulmonary Medici [place], [place] [address] (Wo rk) Scheduled Procedures Name Priority Associated Diagnoses Date/Time DEBRIDEMENT SKIN, SUBCU, MUSCLE, R great toe amp utation, wound LOWER EXTREMITY (WRVU 2.7) closure MODIFIER WOUND VAC R great toe amputation, wound closure documented as of this encounter Visit Diagnoses Diagnosis Positive HUANG (antinuclear antibody) Other and unspecified nonspecific immuno logical findings Peripheral neuropathy Unspecified hereditary and idiopathic pe ripheral neuropathy documented in this encounter Care Teams Plant Taxonomy Teacher Relationship Specialty Start Date End Date Azaila Peña APRN PCP - General 11/19/13 03/19/17 documented as of this encounter
--- OUTSIDE RECORDS SUMMARY | 2021-11-30 08:25 | XMS_ITS | Encounter Summary ---
:1955 Author Organization [facility] [place] [address] Care Team Providers Name Role Phone Azalia Peña APRN Primary Care Provider Reason for Visit Reason Onset Date Comments Other 12/01/2014 Encounter Details Date Type Department Care Team Description 12/01/2014 Telephone [place] [facility] Khanna MD Other [facility] [place] [address] NEUROLOGY DEPT. [phone] [place], [place] [address] (Wo rk) Social History Tobacco [...] this encounter Miscellaneous Notes Telephone Encounter - Katey Macias RN - 12/08/2014 9:44 AM EDT For his pain, he can talk to his PCP about increasing gabapentin as per my office note. I also recommended some labs he can have done when he follows with his PCP. His PCP could also refer him back to the pain clinic. Telephone Encounter - Katey Macias RN - 12/01/2014 1:04 PM EDT Call placed to pt to discuss current pain symptoms. He states that he has pain/numbness from his knees to his ankles. He feels that the gabapentin is working to relieve the pain in his ankles, however.He does report weakness all over and has fallen many times and sustained cuts and bruises. He also feels off balance all the time. He reports that he's taking methadone, along with his gabapentin but only feels that the methadone works to take the edge off. Per Dr. Khanna's last office note, he should follow up with his PCP but also that his gabapentin could be increased. Will forward message on to Dr. Khanna. Telephone Encounter - Enedelia Peres - 12/01/2014 11:37 AM EDT Patient called to speak with the nurse as he has been taking Gabapentin 600mg tablets as prescribed.States that this has been helping the pain and numbness he felt in his toes but he is still experiencing great pain in his feet and legs. Please call patient to discuss. documented in this encounter Plan of Treatment Upcoming Encounters Date Type Specialty Care Team Description 12/11/2021 Appointment Radiology 12/11/2021 Office Visit Orthopaedics Marion Tavera APRN [facility] ORTHOPAEDIC SURG [place], [place] [address] (Wo rk) 01/15/2022 Appointment Radiology Stiven Cervantes MD [facility] Pulmonary Medici nelly [place], [place] [address] (Wo rk) Scheduled Procedures Name Priority Associated Diagnoses Date/Time DEBRIDEMENT SKIN, SUBCU, MUSCLE, R great toe amp utation, wound LOWER EXTREMITY (WRVU 2.7) closure MODIFIER WOUND VAC R great toe amputation, wound closure documented as of this encounter Visit Diagnoses Not on filedocumented in this encounter Care Teams Professor Of Biological Sciences Relationship Specialty Start Date End Date Azalia Peña APRN PCP - General 11/19/13 03/19/17 documented as of this encounter
--- OUTSIDE RECORDS SUMMARY | 2021-11-30 08:25 | XMS_ITS | Encounter Summary ---
:1955 Author Organization [facility] [place] [address] Care Team Providers Name Role Phone Azalia Peña APRN Primary Care Provider Reason for Visit Reason Comments Cast Removal Cast Change Encounter Details Date Type Department Care Team Description 06/28/2015 [place] [facility] [place] [facility] [place] [address] Social History Tobacco Use Types Packs/Day Years Used Date Former Smoker Cigarettes 0.1 42 Smokeless Tobacco: Former User Comments: STATES THAT HE STOPPED TWO FriS AGO 04/2015 Alcohol Use Standard Drinks/Week Comments Yes 17.5 (1 standard drink = 0.6 oz pure alc ohol) [facility] Alcohol Habits Answer Date Recorded How often [...] documented as of this encounter Progress Notes Alma Randolph - 06/28/2015 5:38 PM EST Mahin Ramos presents to the clinic today for a cast change per Lidia Rodríguez RN. The patient'scast was removed. The patient's skin was intact. A new well padded short leg cast was applied on theleft side. A reinforcement strip was applied on the bottom of the cast as he has been walking on thecast occasionally. The patient is reminded to stay off from his foot. Patient acknowledges and states I just forget sometimes.This cast was applied by myself and cast tech, Dania Orozco. The patient tolerated the procedure well. The patient was given instruction for cast care and was given instruction to call the nurse with any questions or concerns. documented in this encounter Plan of Treatment Upcoming Encounters Date Type Specialty Care Team Description 12/11/2021 Appointment Radiology 12/11/2021 Office Visit Orthopaedics Marion Tavera APRN [facility] ORTHOPAEDIC SURG [place], [place] [address] (Wo rk) 01/15/2022 Appointment Radiology Stiven Cervantes MD [facility] Pulmonary Medici [place], [place] [address] (Wo rk) Scheduled Procedures Name Priority Associated Diagnoses Date/Time DEBRIDEMENT SKIN, SUBCU, MUSCLE, R great toe amp utation, wound LOWER EXTREMITY (WRVU 2.7) closure MODIFIER WOUND VAC R great toe amputation, wound closure documented as of this encounter Visit Diagnoses Diagnosis Cast removal Other orthopedic aftercare documented in this encounter Care Teams Small Order Cutter Relationship Specialty Start Date End Date Azalia Peña APRN PCP - General 11/19/13 03/19/17 documented as of this encounter
--- OUTSIDE RECORDS SUMMARY | 2021-11-30 08:25 | XMS_ITS | Encounter Summary ---
:1955 [place] [address] Care Team Providers Name Role Phone Mariana Azalia Eason APRN Primary Care Provider Reason for Visit Reason Comments Joint Pain Encounter Details Date Type Department Care Team Description 07/11/2014 Emergency Emergency Department [facility] [place] [address] [place], [place] [id number] [phone] (Wo rk) Social History Tobacco Use Types [...] Sign Reading Time Taken Comments Blood Pressure 138/84 07/11/2014 9:00 AM EST Pulse - - Temperature 36.7 ??C (98.1 ??F) 07/11/2014 5:45 AM EST Respiratory Rate - - Oxygen Saturation 93% 07/11/2014 9:00 AM EST Inhaled Oxygen Concentration - - Weight - - Height - - Body Mass Index - - documented in this encounter Discharge Instructions Discharge InstructionsJohn Obrien - 07/11/2014 8:59 AM EST Instruction after leaving the hospital Why you were in the ED: joint pain Call your doctor or seek medical attention if you develop the following: fevers, chills, redness or worsening swelling Activity level: As tolerated Specific instructions related to your condition: There is no sign of infection or other emergent cause today Your white blood cells were elevated, and should be rechecked by primary care since you are on steroids. You can take ibuprofen 600 mg every 8 hours Oxycodone as directed for more severe pain You need to avoid drinking and followup with your plastic surgery nurse documented in this encounter Medications at Time of Discharge Medication Sig Dispensed Refills Start Date End Date multivitamin (THERAGRAN) Take 1 tablet by 0 08/21 tablet mouth daily. predniSONE (DELTASONE) 1 Take 1 mg by mouth 0 08/25/2014 mg Tablet daily. Dosage unknown oxyCODONE (ROXICODONE) 5 Take 1-2 tablets by 20 tablet 0 08/25/2014 mg Tablet mouth every 6 hours as needed for Pain. No driving, no alcohol fish oil-omega-3 fatty Take 2 g by mouth 0 10/06/2014 acids 1,000 mg Capsule daily. ibuprofen (ADVIL;MOTRIN) Take 800 mg by mouth 0 12/14/2015 800 mg Tablet as needed. gabapentin (NEURONTIN) Take 300 mg by mouth 0 10/201310/06/2014 300 mg Capsule 3 times daily. furosemide (LASIX) 20 mg Take 20 mg by mouth 1 10/06/2014 Tablet daily. DULERA 200-5 Inhale 1 puff into 0 [...] mouth daily. documented as of this encounter ED Notes Angelica Salazar RN - 07/11/2014 8:54 AM EST Provider at bedside Brian Phan MD - 07/11/2014 8:49 AM EST Brief Attending Note I cared for the patient with the resident physician. Please see Dr. Obrien's note, associated with the encounter, for more details. HPI: Mahin Ramos is a 58 y.o. who presents to the ED with bilateral ankle pain Which is long-standing and now involves his bilateral knees. He says that this began spontaneously without trauma. He denies any associated fevers, chills, nausea, vomiting. He has no associated redness or swelling to the knees. Pain is dull and throbbing and equal bilateral. He also complains of similar pain at the base of his bilateral thumbs. Gen: well appearing, NAD Pulm: CTA werner Card: nl s1s2 s m/g/r Abd: soft, nt Skin: warm and dry no focal erythema. Neuro: nl gait, speech, balance MS: no tenderness or edema Or effusions. ED Course: I reviewed the patient's labwork: leukocytosis. The patient recently had a white count of 25. He wasalso recently treated with a burst of prednisone. Assessment/plan: Symmetric arthralgias without evidence of septic joints. Brian Ballard MD 07/11/14 0858 Alecia Sosa RN - 07/11/2014 7:22 AM EST Report to VINCENT Dominguez. Patient condition stable at time of transfer of care. NON John Obrien - 07/11/2014 6:53 AM EST Chief Complaint: joint pain HPI: Mahin Ramos is a 58 y.o. male with a significant PMH of Hep C, chronic back pain, avascular necrosis status post bilateral NATHANAEL and substance abuse issues who presents to the Emergency Department with joint pain. Patient states he has been seen in the pain clinic, used we prescribe methadone is currently only taking gabapentin prednisone. He has had chronic pain on the bottoms of his feet. In the last 3 days he has had worsening pain that progresses symmetrically from the ankles to the knees denies now involving bilateral thumbs. He denies any fevers or chills. He has had swelling especially in the lower extremities but denies any redness, or warmth. Pain is slightly worse with movement but he has had no relief. He denies any other symptoms. He states he is currently finishing a course of Augmentin for presumed pneumonia with no respiratory symptoms and an elevated WBC. He does not currently have a pain contract, by pain clinic has not been willing to give him narcotics. He has no significant family history of rheumatoid Arthritis. He states that the pain was bad enough last night that he took 40 mg of leftover methadone, unknown quantity of Xanax, and was drinking beer as well. Review of Systems Constitutional: Negative for fever and chills. Respiratory: Negative for shortness of breath. Cardiovascular: Negative for chest pain. Gastrointestinal: Negative for nausea, vomiting and abdominal pain. Musculoskeletal: Positive for joint swelling, arthralgias and gait problem. Negative for back pain, neck pain and neck stiffness. Skin: Negative for color change, rash and wound. Neurological: Negative for headaches. Hematological: Does not bruise/bleed easily. Psychiatric/Behavioral: Negative for confusion. BP 166/85 Temp(Src) 36.7 ??C (98.1 ??F) SpO2 91% Physical Exam Constitutional: He is oriented to person, place, and time. He appears well- developed and well-nourished. No distress. HENT: Head: Normocephalic and atraumatic. Mouth/Throat: Oropharynx is clear and moist. Neck: Normal range of motion. Cardiovascular: Normal rate, regular rhythm and intact distal pulses. Pulmonary/Chest: Effort normal and breath sounds normal. Abdominal: Soft. There is no tenderness. Musculoskeletal: Bilateral lower extremities have very mild tenderness to palpation over knees and ankles with no edema, or overlying skin changes including erythema or warmth. No effusions. No pain with passive range of motion. Bilateral hands have no sign of joint swelling, deformity, or overlying skin changes. Neurovascularly intact throughout Neurological: He is alert and oriented to person, place, and time. Skin: Skin is warm and dry. Psychiatric: He has a normal mood and affect. Nursing note and vitals reviewed. ED Course: - Medications and fluids administered: Motrin 600 mg PO I reviewed the patient's labwork: Recent Results (from the past 72 hour(s)) HEMOGRAM Result Value Ref Range WBC 19.8 (*) 4.0 - 10.0 x10(3)/mcL RBC 4.44 (*) 4.63 - 6.08 x10(6)/mcL Hemoglobin 14.8 13.7 - 17.5 gm/dL Hematocrit 43.4 40.0 - 51.0 % MCV 97.7 (*) 79.0 - 92.0 fL MCH 33.3 (*) 25.6 - 32.2 pg MCHC 34.1 32.0 - 36.5 gm/dL Platelets 294 145 - 370 x10(3)/mcL RDWSD 50.6 (*) 35.0 - 46.0 fL RDWCV 14.1 10.9 - 14.4 % MPV 9.7 9.0 - 12.0 fL BLUE TUBE HOLD Result Value Ref Range Blue Hold Sample in lab. NUCLEATED RED BLOOD CELLS Result Value Ref Range nRBC % Auto 0.0 nRBC Abs Auto 0.000 0.000 - 0.012 x10(3)/mcL DIFFERENTIAL, MANUAL Result Value Ref Range Neutrophil % 83 Band % 3 Lymphocyte % 6 Monocyte % 6 Metamyelo % 1 Myelocyte % 1 Neutrophil Abs 16.5 (*) 1.5 - 6.3 x10(3)/mcL Band Abs 0.6 0.2 - 0.6 x10(3)/mcL Neutr Abs (ANC) 17.07 (*) 1.50 - 6.30 x10(3)/mcL Lymphocyte Abs 1.2 1.0 - 3.6 x10(3)/mcL Monocyte Abs 1.2 (*) 0.2 - 1.0 x10(3)/mcL Metamyelo Abs 0.2 (*) 0.0 - 0.0 x10(3)/mcL Myelocyte Abs 0.2 (*) 0.0 - 0.0 x10(3)/mcL Tot Diff Cell Ct 100 Plat Estimate Normal RBC Morphology Abnormal Macrocytes 1-5 Ovalocytes 1-5 BASIC METABOLIC PANEL (NON-FASTING) Result Value Ref Range Glucose Lvl 204 (*) 60 - 199 mg/dL BUN 15 10 - 20 mg/dL Creatinine 1.08 0.80 - 1.50 mg/dL Sodium 137 135 - 145 mmol/L Potassium 4.6 3.5 - 5.0 mmol/L Chloride 95 (*) 98 - 107 mmol/L CO2 24 22 - 31 mmol/L Anion Gap 18 (*) 5 - 15 mmol/L Calcium 9.7 8.5 - 10.5 mg/dL Estimated GFR >60 >=60 HEPATIC FUNCTION PANEL Result Value Ref Range Total Protein 7.1 6.4 - 8.3 gm/dL Albumin 4.3 3.2 - 5.2 gm/dL AST 32 0 - 39 unit/L ALT 44 0 - 55 unit/L Alk Phos 79 40 - 120 unit/L Total Bilirubin 0.2 0.2 - 1.3 mg/dL Bili, Direct 0.1 0.0 - 0.3 mg/dL MDM: Patient is a 58 y/o male with PMH of chronic pain and Hep C presenting with worsening of arthralgias in b/l knees and ankles. He is afebrile with unremarakble VS. Exam shows no sign of infection or septic joints. Likely arthritis. Elevated WBC, on prednisone. Conservaitve management indicated. Assessment: symmetric polyarthralgias Plan: Ibuprofen, rest, activity as tolerated. Avoid drinking and leftover pain medications. FU with PCP and possible rheum Pt is safe to discharge home with return precautions. Pt understands and agrees with the current plan. John Obrien, DO Resident 07/12/14 0367 Associated attestation - Brian Ballard MD - 07/15/2014 10:56 AM EST ED ATTENDING ATTESTATION The patient was seen in conjunction with Dr. Obrien, the resident physician. I have independently performed the hansen portions of the history and physical exam. I have personally reviewed nursing notes, vital signs, and diagnostic studies including labs, imaging studies and EKGs. I have discussed the details of the case with the resident and agree with the assessment and plan as described in the resident note unless stated differently in my separate note. documented in this encounter Miscellaneous Notes ED Triage - Alecia Palacio RN - 07/11/2014 5:25 AM EST Patient arrives from home with c/o pain in my toes and feet, now it's in my knees and tonight it started in both of my thumbs and is creeping up my arms. I used to be on methadone and the pain got so bad tonight that I took 4 or 5 10's that I had left over. Patient currently AA&Ox4. Appears uncomfortable, twitching on stretcher, face clenched. Airway patent, denies CP, SOB. Skin pale, warm, dry. Respiration even and unlabored, tachypnic and shallow with exertion. Placed monitors as appropriate. Hypertensive per monitors. Oriented patient to staff, room. Call miller in reach. documented in this encounter Plan of Treatment Upcoming Encounters Date Type Specialty Care Team Description 12/11/2021 Appointment Radiology 12/11/2021 Office Visit Orthopaedics Marion Tavera APRN [facility] DR ORTHOPAEDIC SURG [place], [place] [address] (Wo rk) 01/15/2022 Appointment Radiology Stiven Cervantes MD [facility] Pulmonary Medici nelly [place], [place] [address] (Wo rk) Scheduled Procedures Name Priority Associated Diagnoses Date/Time DEBRIDEMENT SKIN, SUBCU, MUSCLE, R great toe amp utation, wound LOWER EXTREMITY (WRVU 2.7) closure MODIFIER WOUND VAC R great toe amputation, wound closure documented as of this encounter Procedures Procedure Name Priority Date/Time Associated Diagnosis Comme nts DIFFERENTIAL, STAT 07/11/2014 6:40 AM Results for this MANUAL EST procedure are i n the results section. NUCLEATED RED BLOOD STAT 07/11/2014 6:40 AM Re sults for this CELLS EST procedure are i n the results section. HEMOGRAM STAT 07/11/2014 6:40 AM Results f or this EST procedure are i n the results section. BLUE TUBE HOLD STAT 07/11/2014 6:40 AM Results for this EST procedure are i n the results section. CBC (WITH DIFF) STAT 07/11/2014 6:40 AM EST HEPATIC FUNCTION STAT 07/11/2014 6:40 AM Resul ts for this PANEL EST procedure are i n the results section. BASIC METABOLIC STAT 07/11/2014 6:40 AM Result s for this PANEL (NON-FASTING) EST procedur e are in the results section. documented in this encounter Results Hepatic Function Panel (07/11/2014 6:40 AM EST) P athologist Signature Total Protein 7.1 6.4 - 8.3 CERNER gm/dL MILLENNIUM Albumin 4.3 3.2 - 5.2 CERNER gm/dL MILLENNIUM AST 32 0 - 39 CERNER unit/L MILLENNIUM ALT 44 0 - 55 CERNER unit/L MILLENNIUM Alk Phos 79 40 - 120 CERNER unit/L MILLENNIUM Total 0.2 0.2 - 1.3 CERNER Bilirubin mg/dL MILLENNIUM Bili, Direct 0.1 0.0 - 0.3 CERNER mg/dL MILLENNIUM Specimen Anatomical Collection Method Collection Time Receive d Time (Source) Location / / Volume Laterality Blood specimen Venous Draw / 07/11/2014 6:40 AM 2014 9:10 (specimen) Unknown EST AM EST Resulting Agency Comment Spec In Lab Brian Ballard MD CHEMISTRY ORDERABLES Performing Organization Address City/State/[place] [address] CERNER MILLENNIUM (ABNORMAL) Basic Metabolic Panel (non-fasting) (07/11/2014 6:40 AM EST) P athologist Signature Glucose Lvl 204 (H) 60 - 199 CERNER mg/dL MILLENNIUM Comment: Diabetes: >=200 mg/dL plus symp toms BUN 15 10 - 20 mg/dL CERNER MILLENNIU M Creatinine 1.08 0.80 - 1.50 mg/dL CERNER MILL ENNIUM Comment: Please note that the pediatric reference intervals supplied above were not validated at [facility]. Results from pediatri c patients should be interpreted in conjunction to the patient's age, height and muscle mass. Sodium 137 135 - 145 mmol/L CERNER GERBER NIUM Potassium 4.6 3.5 - 5.0 mmol/L CERNER GERBER NIUM Comment: Please note: ??Patients with WBC >100,00 0 may have falsely elevated Potassium levels. ??For accurate Potassium quantif ication in these patients send serum separator tube (gold top) for subsequent determinations. ??Contact the Clinical Chemistry Laboratory if there are any qu estions. Chloride 95 (L) 98 - 107 mmol/L CERNER MILLENN IUM CO2 24 22 - 31 mmol/L CERNER MILLENNI UM Anion Gap 18 (H) 5 - 15 mmol/L CERNER MILLENNIU M Calcium 9.7 8.5 - 10.5 mg/dL CERNER GERBER NIUM Estimated GFR >60 >=60 CERNER MILLENNIU M Comment: This estimated GFR (eGFR) value was [...] the following links into your internet browser. [email or web address] [email or web address] [email or web address] Specimen Anatomical Collection Method Collection Time Receive d Time (Source) Location / / Volume Laterality Blood specimen Venous Draw / 07/11/2014 6:40 AM 2014 9:10 (specimen) Unknown EST AM EST Resulting Agency Comment Spec In Lab Brian Ballard MD CHEMISTRY ORDERABLES Performing Organization Address City/State/ZIP Code Phon e Number [address] CERNER MILLENNIUM (ABNORMAL) Differential, Manual (07/11/2014 6:40 AM EST) Patholo gist Method Time Signature Neutrophil % 83 % CERNER MILLENNIUM Band % 3 % CERNER MILLENNIUM Lymphocyte % 6 % CERNER MILLENNIUM Monocyte % 6 % CERNER MILLENNIUM Metamyelo % 1 % CERNER MILLENNIUM Myelocyte % 1 % CERNER MILLENNIUM Neutrophil Abs 16.5 (H) 1.5 - 6.3 CERNER x10(3)/mc MILLENNIUM L Band Abs 0.6 0.2 - 0.6 CERNER x10(3)/mc MILLENNIUM L Neutr Abs (ANC) 17.07 (H) 1.50 - CERNER 6.30 MILLENNIUM x10(3)/mc L Lymphocyte Abs 1.2 1.0 - 3.6 CERNER x10(3)/mc MILLENNIUM L Monocyte Abs 1.2 (H) 0.2 - 1.0 CERNER x10(3)/mc MILLENNIUM L Metamyelo Abs 0.2 (H) 0.0 - 0.0 CERNER x10(3)/mc MILLENNIUM L Myelocyte Abs 0.2 (H) 0.0 - 0.0 CERNER x10(3)/mc MILLENNIUM L Tot Diff Cell [address] MILLENNIUM Plat Estimate Normal CERNER MILLENNIUM RBC Morphology Abnormal CERNER MILLENNIUM Macrocytes 1-5 /HPF CERNER MILLENNIUM Ovalocytes 1-5 /HPF CERNER MILLENNIUM Specimen Anatomical Collection Method Collection Time Receive d Time (Source) Location / / Volume Laterality Blood specimen 07/11/2014 6:40 AM 015 6:56 (specimen) EST AM EST Resulting Agency Comment Spec In Lab Brian Ballard MD HEMATOLOGY ORDERABLES Performing Organization Address City/[facility]/ZIP Code Phon e Number [address] CERNER MILLENNIUM Nucleated Red Blood Cells (07/11/2014 6:40 AM EST) P athologist Signature nRBC % Auto 0.0 % CERNER MILLENNIUM nRBC Abs Auto 0.000 0.000 - CERNER 0.012 MILLENNIUM x10(3)/mcL Specimen Anatomical Collection Method Collection Time Receive d Time (Source) Location / / Volume Laterality Blood specimen 07/11/2014 6:40 AM 015 6:56 (specimen) EST AM EST Resulting Agency Comment Spec In Lab Brian Ballard MD HEMATOLOGY ORDERABLES Performing Organization Address City/[facility]/ZIP Code Phon e Number [address] [facility] MILL[facility]UM Blue Tube HOLD (07/11/2014 6:40 AM EST) athologist Signature Blue Hold Sample in [facility] lab. MILLENNIUM Specimen Anatomical Collection Method Collection Time Receive d Time (Source) Location / / Volume Laterality Blood specimen Venous Draw / 07/11/2014 6:40 AM 2014 6:58 (specimen) Unknown EST AM EST Brian Ballard MD HEMATOLOGY ORDERABLES Performing Organization Address City/[facility]/ZIP [facility] [place] [address] CERNER MILLENNIUM (ABNORMAL) Hemogram (07/11/2014 6:40 AM EST) athologist Signature WBC 19.8 (H) 4.0 - 10.0 CERNER x10(3)/mcL MILLENNIUM RBC 4.44 (L) 4.63 - CERNER 6.08 MILLENNIUM x10(6)/mcL Hemoglobin 14.8 13.7 - CERNER 17.5 gm/dL MILLENNIUM Hematocrit 43.4 40.0 - CERNER 51.0 % MILLENNIUM MCV 97.7 (H) 79.0 - CERNER 92.0 fL MILLENNIUM MCH 33.3 (H) 25.6 - CERNER 32.2 pg MILLENNIUM MCHC 34.1 32.0 - CERNER 36.5 gm/dL MILLENNIUM Platelets 294 145 - 370 CERNER x10(3)/mcL MILLENNIUM RDWSD 50.6 (H) 35.0 - CERNER 46.0 fL MILLENNIUM RDWCV 14.1 10.9 - CERNER 14.4 % [facility] MPV 9.7 9.0 - 12.0 [facility] Specimen Anatomical Collection Method Collection Time Receive d Time (Source) Location / / Volume Laterality Blood specimen 07/11/2014 6:40 AM 015 6:56 (specimen) EST AM EST Resulting Agency Comment Spec In Lab Brian Ballard MD HEMATOLOGY ORDERABLES Performing Organization Address City/State/[place] [address] [facility] documented in this encounter Visit Diagnoses Diagnosis Arthralgia Pain in joint, site unspecified documented in this encounter Administered Medications Inactive Administered Medications - up to 3 most recent administrations Medication Order MAR Action Action Date Dose Rate Site ibuprofen (ADVIL;MOTRIN) tablet Given 07/11/2014 6:31 AM EST 800 mg 800 mg 800 mg, Oral, ONCE, 1 dose, On Fri07/11/14 at 0631, Administer orally with milk or food to minimize GI irritation, STAT documented in this encounter Active and Recently Administered Medications Times are shown in EST. Scheduled Medication Order 07/09/2014 07/10/2014 07/11/2014 ibuprofen (ADVIL;MOTRIN) tablet 800 mg (COMPLETED) 0631 (Given - Provider: Arjun Blair RN) 800 mg, Oral, ONCE, 1 dose, Fri07/11/14 a t 0631, Administer orally with milk or food to minimize GI irritation, STAT documented in this encounter Care Teams Automobile Damage Appraiser Relationship Specialty Start Date End Date Azalia Peña APRN PCP - General 11/19/13 03/19/17 documented as of this encounter
--- OUTSIDE RECORDS SUMMARY | 2021-11-30 08:25 | XMS_ITS | Encounter Summary ---
:1955 Author Organization [facility] Address [address] [place] [address] Care Team Providers Name Role Phone Azalia Peña APRN Primary Care Provider Reason for Visit Reason Onset Date Comments Results 09/13/2014 Labs and Xrays Encounter Details Date Type Department Care Team Description 09/13/2014 Telephone Rheumatology at [facility] Sparkle Barnes, Results (Labs and [facility] Jenni hammer RN Xrays) [place] [address] Social History Tobacco Use Types Packs/Day [...] Telephone Encounter - Sirena Montana RN - 09/21/2014 3:50 PM EDT Mahin is calling with additional questions regarding his conversation with Dr. Silva. Basically, reiterated her conversation with him from 09/19/14.. Explained specifically why he is seeing Dr. Kat Neurology. Encouraged him to contact [facility] regarding his liver. Mahin verbalized understandingof information. Telephone Encounter - Sparkle Barnes RN - 09/13/2014 1:43 PM EDT Mahin calls with questions and looking for his results from labs and radiology tests. States last night he had terrible pain all night, 10/10 in ankle joints, bottom of his feet, R knee, L elbow and his arm. States he was rubbing ointment into them, took his gabapentin 1200 mg TID which he is prescribed. He would like to know what is going on with his results, let him know this message would be forwarded to Dr. Monroe to give him a call regarding his results. documented in this encounter Plan of Treatment Upcoming Encounters Date Type Specialty Care Team Description 12/11/2021 Appointment Radiology 12/11/2021 Office Visit Orthopaedics Marion Tavera APRN [facility] DR ORTHOPAEDIC SURG [place], [place] [address] (Wo rk) 01/15/2022 Appointment Radiology Stiven Cervantes MD [facility] Pulmonary Medici [place], [place] [address] (Wo rk) Scheduled Procedures Name Priority Associated Diagnoses Date/Time DEBRIDEMENT SKIN, SUBCU, MUSCLE, R great toe amp utation, wound LOWER EXTREMITY (WRVU 2.7) closure MODIFIER WOUND VAC R great toe amputation, wound closure documented as of this encounter Visit Diagnoses Not on filedocumented in this encounter Care Teams Supervisor Throwing Department Relationship Specialty Start Date End Date Azalia Peña APRN PCP - General 11/19/13 03/19/17 documented as of this encounter
--- OUTSIDE RECORDS SUMMARY | 2021-11-30 08:25 | XMS_ITS | Encounter Summary ---
:1955 Author Organization [facility] Address [address] [place] [address] Care Team Providers Name Role Phone Azalia Peña APRN Primary Care Provider Encounter Details Date Type Department Care Team Description 09/06/2014 Hospital Encounter [facility]Ray [place] [facility] [place] CARBAJAL Chronic hepatitis C without hepatic coma; [address] [place] [address] Majo Drew MD [facility] [place] [address] Left foot pain; [place], [place] Peripheral neur opathy [phone] Social History Tobacco Use Types Packs/Day [...] tablet by 0 08/21 tablet mouth daily. potassium chloride Take 20 mEq by mouth 0 015 08/20/2016 (KLOR-CON) 20 mEq Packet daily. Reported on 06/13/2016 fish oil-omega-3 fatty Take 2 g by [...] 12/11/2021 Office Visit Orthopaedics Marion Tavera APRN [facility] DR ORTHOPAEDIC SURG [place], [place] [address] (Wo rk) 01/15/2022 Appointment Radiology Stiven Cervantes MD [facility] Pulmonary Medici [place], [place] [address] (Wo rk) Scheduled Procedures Name Priority Associated Diagnoses Date/Time DEBRIDEMENT SKIN, SUBCU, MUSCLE, R great toe amp utation, wound LOWER EXTREMITY (WRVU 2.7) closure MODIFIER WOUND VAC R great toe amputation, wound closure documented as of this encounter Procedures Procedure Name Priority Date/Time Associated Diagnosis Comme nts XR FOOT MIN 3 VIEWS Routine 09/06/2014 11:41 AM Chronic hepati tis C Results for this BILAT EDT without hepatic coma procedure are in Left foot pain the results Peripheral section. 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 Narrative 09/06/2014 2:23 PM EDT EXAMINATION: BILATERAL FEET MINIMUM 3 VIEWS CLINICAL HISTORY: ?erosions, OA, pt with Hep C TECHNIQUE: AP, oblique and lateral of ea foot COMPARISON: None FINDINGS: The bone matrix appears normal. No fracture or dislocation is seen. There is slight narrowing of the first m etatarsal phalangeal joint of the right foot with small marginal osteophytes and a small erosion. There is a hammertoe deformity of the right great toe. The remainder of the joint spaces are in tact. No other erosions are seen. There are bilateral Achilles and plantar calcaneal spurs. Procedure Note Asa Johnston MD - 09/06/2014 EXAMINATION: BILATERAL FEET MINIMUM 3 EWS CLINICAL HISTORY: ?erosions, OA, pt with Hep C TECHNIQUE: AP, oblique and lateral of ea foot COMPARISON: None FINDINGS: The bone matrix appears normal. No fracture or dislocation is seen. There is slight narrowing of the first m etatarsal phalangeal joint of the right foot with small marginal osteophytes and a small erosion. There is a hammertoe deformity of the right great toe. The remainder of the joint spaces are in tact. No other erosions are seen. There are bilateral Achilles and plantar calcaneal spurs. 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 Majo Silva MD IMG DX ORDERABLES documented in this encounter Visit Diagnoses Diagnosis Chronic hepatitis C without hepatic coma Left foot pain Pain in limb Peripheral neuropathy Unspecified hereditary and idiopathic pe ripheral neuropathy documented in this encounter Care Teams Railroad Firer/Fireman Relationship Specialty Start Date End Date Azalia Peña, EROSION CONTROL COORDINATOR PCP - General 11/19/13 03/19/17 documented as of this encounter
--- OUTSIDE RECORDS SUMMARY | 2021-11-30 08:25 | XMS_ITS | Encounter Summary ---
:1955 Author Organization [facility] [place] [address] Care Team Providers Name Role Phone Azalia Peña APRN Primary Care Provider Reason for Visit Reason Onset Date Comments Pain Management 04/28/2015 Encounter Details Date Type Department Care Team Description 04/28/2015 Telephone Orthopaedics at [facility] Rick Avila kitchen utility associate [facility] [place] [address] Social History Tobacco Use Types Packs/Day Years [...] Telephone Encounter - Rick Avila RN - 04/28/2015 8:47 AM EST Patient called to acknowledge receiving the message from Dr Mallory. He wanted to verify that we had also received his ankle MRI which we do have. He also wanted to talk about pain management. He was referred back to his PCP for pre op pain management as Dr Mallory will only prescribe medication in the acute post op period. documented in this encounter Plan of Treatment Upcoming Encounters Date Type Specialty Care Team Description 12/11/2021 Appointment Radiology 12/11/2021 Office Visit Orthopaedics Marion Tavera APRN [facility] ER DR ORTHOPAEDIC SURG [place], [place] [address] (Wo rk) 01/15/2022 Appointment Radiology Stiven Cervantes MD [facility] er Pulmonary Medici [place], [place] [address] (Wo rk) Scheduled Procedures Name Priority Associated Diagnoses Date/Time DEBRIDEMENT SKIN, SUBCU, MUSCLE, R great toe amp utation, wound LOWER EXTREMITY (WRVU 2.7) closure MODIFIER WOUND VAC R great toe amputation, wound closure documented as of this encounter Visit Diagnoses Not on filedocumented in this encounter Care Teams Music Department Chair Relationship Specialty Start Date End Date Azalia Peña APRN PCP - General 11/19/13 03/19/17 documented as of this encounter
--- OUTSIDE RECORDS SUMMARY | 2021-11-30 08:25 | XMS_ITS | Encounter Summary ---
:1955 Author Organization [facility] [place] [address] Care Team Providers Name Role Phone Mariana Azalia Eason APRN Primary Care Provider Reason for Visit Reason Onset Date Comments Questions 07/17/2015 Encounter Details Date Type Department Care Team Description 07/17/2015 Telephone [place] [facility] [place] Mallory MD [facility] [place] [place] [address] ORTHOPAEDICS [phone] [place], [place] [address] (Wo rk) Social History Tobacco Use Types Packs/Day Years Used Date Former Smoker Cigarettes 0.1 42 Smokeless Tobacco: Former User Comments: STATES THAT HE STOPPED TWO MON THS AGO 04/2015 Alcohol Use Standard Drinks/Week Comments Yes 17.5 (1 standard drink = 0.6 oz pure alc ohol) [facility] Alcohol Habits Answer Date Recorded How [...] Telephone Encounter - Lidia Rodríguez RN - 07/17/2015 10:52 AM EST TC from pt concerning his right ankle. He is scheduled to see Dr. Mallory on 07/25/15 for his left ankle. 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 Additonal requested images discussed with Rajinder Aggarwal PA-C and order placed. Telephone Encounter - MonicagraysonKathy - 07/17/2015 9:55 AM EST Patient states he has AVN and his right foot is falling apart. He has an appointment coming up on 07/25/15. He is wondering if he can get an xray of it when he comes in. He thinks a bone is coming out and it is swollen. Please call him at [phone]. He is wondiering if his foot bone is rotted out. His cast is also causing a problem. He has to bear weight on it. He uses crutches but because of theright foot he has been bearing more weight. documented in this encounter Plan of Treatment Upcoming Encounters Date Type Specialty Care Team Description 12/11/2021 Appointment Radiology 12/11/2021 Office Visit Orthopaedics Marion Tavera APRN [facility] DR ORTHOPAEDIC SURG [place], [place] [address] (Wo rk) 01/15/2022 Appointment Radiology Stiven Cervantes MD [facility] Pulmonary Medici [place], [place] [address] (Wo rk) Scheduled Procedures Name Priority Associated Diagnoses Date/Time DEBRIDEMENT SKIN, SUBCU, MUSCLE, R great toe amp utation, wound LOWER EXTREMITY (WRVU 2.7) closure MODIFIER WOUND VAC R great toe amputation, wound closure documented as of this encounter Visit Diagnoses Diagnosis Right ankle pain Pain in joint, ankle and foot documented in this encounter Care Teams Commercial Engineer Relationship Specialty Start Date End Date Azalia Peña APRN PCP - General 11/19/13 03/19/17 documented as of this encounter
--- OUTSIDE RECORDS SUMMARY | 2021-11-30 08:25 | XMS_ITS | Encounter Summary ---
:1955 Author Organization [facility] [place] [address] Care Team Providers Name Role Phone Azalia Peña APRN Primary Care Provider Reason for Referral Consultation (Urgent) - Closed Specialty Diagnoses / Procedures Referred By Contact Refer red To Contact Neurology Diagnoses Peripheral neuropathy Chronic hepatitis C without hepatic coma Majo Silva MD [facility] [address] [place] [address] R [facility] [place] [address] [place] [address] Referral ID Status Reason Start Date Expiration Date Visits V isits Requested Authorized [id number] Closed Consult, 09/13/2014 09/13/2015 3 3 Test & Treat onsultation (Urgent) - Closed Specialty Diagnoses / Procedures Referred By Contact Refer red To Contact Dermatology Diagnoses Nevus of toe, unspecified laterality what appears to be a large black discoloration under 1st toenail - concerning for melanoma. Majo Silva MD [facility] Dermat[facility] [address] [place] [address] [place] [address] Referral ID Status Reason Start Date Expiration Date Visits V isits Requested Authorized [id number] Closed Consult, 09/13/2014 09/13/2015 3 3 Test & Treat Encounter Details Date Type Department Care Team Description 09/13/2014 Orders Only [place] [facility] Majo Silva MD Nevus of toe, unspecified laterality; [facility] Per ipheral neuropathy; Drive Chronic hepatitis [place] [address] RHEUMATOLOGY DEPT [phone] [place] [id number] Social History Tobacco Use Types Packs/Day Years [...] [facility] DR ORTHOPAEDIC SURG [place], [place] [address] (Wo rk) 01/15/2022 Appointment Radiology Stiven Cervantes MD [facility] Pulmonary Medici [place], [place] [address] (Wo rk) Scheduled Procedures Name Priority Associated Diagnoses Date/Time DEBRIDEMENT SKIN, SUBCU, MUSCLE, R great toe amp utation, wound LOWER EXTREMITY (WRVU 2.7) closure MODIFIER WOUND VAC R great toe amputation, wound closure Scheduled Referrals Name Type Priority Associated Diagnoses Order S chedule Referral to Outpatient Referral Routine Nevus of toe, Ordered : Dermatology unspecified 09/13/2014 laterality Referral to Outpatient Referral Routine Peripheral Ordered: Neurology neuropathy 09/13/2014 Chronic hepatitis C without hepatic coma documented as of this encounter Visit Diagnoses Diagnosis Nevus of toe, unspecified laterality Peripheral neuropathy Unspecified hereditary and idiopathic pe ripheral neuropathy Chronic hepatitis C without hepatic coma documented in this encounter Care Teams Customer Solutions Architect Relationship Specialty Start Date End Date Azalia Peña APRN PCP - General 11/19/13 03/19/17 documented as of this encounter
--- OUTSIDE RECORDS SUMMARY | 2021-11-30 08:25 | XMS_ITS | Encounter Summary ---
:1955 Author Organization [facility] [place] [address] Care Team Providers Name Role Phone Azalia Peña APRN Primary Care Provider Encounter Details Date Type Department Care Team Description 11/21/2014 Telephone [place] [facility] [place] [address] Social History Tobacco Use Types Packs/Day Years [...] this encounter Miscellaneous Notes Telephone Encounter - Rupa Buck - 11/21/2014 3:38 PM EDT Spoke with Mahin regarding scheduling follow up in liver clinic with ultrasound. Patient stated that he is having difficulties with family at this time and would like a call back in 2 weeks from us. He is not ready to schedule. documented in this encounter Plan of Treatment Upcoming Encounters Date Type Specialty Care Team Description 12/11/2021 Appointment Radiology 12/11/2021 Office Visit Orthopaedics Marion Tavera APRN [facility] ER DR ORTHOPAEDIC SURG [place], [place] [address] (Wo rk) 01/15/2022 Appointment Radiology Stiven Cervantes MD [facility] Pulmonary Medici [place], [place] [address] (Wo rk) Scheduled Procedures Name Priority Associated Diagnoses Date/Time DEBRIDEMENT SKIN, SUBCU, MUSCLE, R great toe amp utation, wound LOWER EXTREMITY (WRVU 2.7) closure MODIFIER WOUND VAC R great toe amputation, wound closure documented as of this encounter Visit Diagnoses Not on filedocumented in this encounter Care Teams Fitness Floor Attendant Relationship Specialty Start Date End Date Azalia Peña APRN PCP - General 11/19/13 03/19/17 documented as of this encounter
--- OUTSIDE RECORDS SUMMARY | 2021-11-30 08:25 | XMS_ITS | Encounter Summary ---
:1955 Author Organization [facility] Address [facility] [address] [place] [address] Care Team Providers Name Role Phone Azalia Peña APRN Primary Care Provider Reason for Visit Reason Onset Date Comments Other 08/29/2014 question Encounter Details Date Type Department Care Team Description 08/29/2014 Telephone Rheumatology at [facility] Sirena Montana, Other (question) [facility] [place] [address] Social History Tobacco Use Types Packs/Day [...] Telephone Encounter - Sirena Montana RN - 08/29/2014 10:26 AM EDT Mahin called today to say he didn't have time to get labs and xrays done last week, but thinks he can get a ride down today. Let him know where to go to have these done. He then went on to say he feels Dr. Silva may have got the wrong impression of him. Particularly with regards to his alcohol use. He says 'people make it seem I drink like a fish and that's not the case. His speech is very slurred and it is difficult following conversation. He then reports pain in his left foot. He says all his small toes feel like they are broken. He indicates swelling of his left great toe and bleeding from under the toenail. He says he is in a lot of pain and is having difficulty walking. Encouraged him to come up and get tests done so Dr. Silva can try and help diagnose him. Explained she will not give narcotic pain medication. At this point he became louder and said, I don't want any pain medicine. Wehad the same conversation a second time. Vpk Teacher reiterated he should get tests done KEN to help figure out the cause of his pain. documented in this encounter Plan of Treatment Upcoming Encounters Date Type Specialty Care Team Description 12/11/2021 Appointment Radiology 12/11/2021 Office Visit Orthopaedics Marion Tavera APRN [facility] DR ORTHOPAEDIC SURG [place], [place] [address] (Wo rk) 01/15/2022 Appointment Radiology Stiven Cervantes MD [facility] Pulmonary Medici [place], [place] [address] (Wo rk) Scheduled Procedures Name Priority Associated Diagnoses Date/Time DEBRIDEMENT SKIN, SUBCU, MUSCLE, R great toe amp utation, wound LOWER EXTREMITY (WRVU 2.7) closure MODIFIER WOUND VAC R great toe amputation, wound closure documented as of this encounter Visit Diagnoses Not on filedocumented in this encounter Care Teams Sliver Former Relationship Specialty Start Date End Date Azalia Peña APRN PCP - General 11/19/13 03/19/17 documented as of this encounter
--- OUTSIDE RECORDS SUMMARY | 2021-11-30 08:25 | XMS_ITS | Encounter Summary ---
:1955 Author Organization [facility] [place] [address] Care Team Providers Name Role Phone Azalia Peña APRN Primary Care Provider Encounter Details Date Type Department Care Team Description 07/25/2015 Clinical Support [facility] [place] [address] Social History Tobacco Use Types Packs/Day Years Used Date Former Smoker Cigarettes 0.1 42 Smokeless Tobacco: Former User Comments: STATES THAT HE STOPPED TWO FriS AGO 04/2015 Alcohol Use Standard Drinks/Week Comments Yes 17.5 (1 standard drink = 0.6 oz pure alc ohol) [facility] Alcohol Habits Answer Date Recorded How [...] Tavera APRN [facility] ER DR ORTHOPAEDIC SURG [place], [place] [address] (Wo rk) 01/15/2022 Appointment Radiology Stiven Cervantes MD [facility] Pulmonary Medici [place], [place] [address] (Wo rk) Scheduled Procedures Name Priority Associated Diagnoses Date/Time DEBRIDEMENT SKIN, SUBCU, MUSCLE, R great toe amp utation, wound LOWER EXTREMITY (WRVU 2.7) closure MODIFIER WOUND VAC R great toe amputation, wound closure documented as of this encounter Visit Diagnoses Not on filedocumented in this encounter Care Teams Pcat Instructor Relationship Specialty Start Date End Date Azalia Peña APRN PCP - General 11/19/13 03/19/17 documented as of this encounter
--- OUTSIDE RECORDS SUMMARY | 2021-11-30 08:25 | XMS_ITS | Encounter Summary ---
:1955 Author Organization [facility] [place] [address] Care Team Providers Name Role Phone Azalia Peña APRN Primary Care Provider Encounter Details Date Type Department Care Team Description 06/29/2015 Orders Only [place] [facility] [place] Tilley Chronic hepatitis C [facility] Jenni Parra [place] [address] [facility] [phone] [facility] [place] [address] Social History Tobacco Use Types Packs/Day Years [...] APRN [facility] ORTHOPAEDIC SURG [place], [place] [address] (Wo rk) 01/15/2022 Appointment Radiology Stiven Cervantes MD [facility] er Pulmonary Mediccharlie [place], [place] [address] (Wo rk) Scheduled Procedures Name Priority Associated Diagnoses Date/Time DEBRIDEMENT SKIN, SUBCU, MUSCLE, R great toe amp utation, wound LOWER EXTREMITY (WRVU 2.7) closure MODIFIER WOUND VAC R great toe amputation, wound closure documented as of this encounter Results Prothrombin Time (08/09/2015 11:04 AM EDT) athologist Signature PT 14.0 12.0 - 15.0 [facility] LABORATORY Comment: An INR <2.0 indicates [...] linical circumstances. INR 1.1 0.9 - 1.1 [facility] LABORATORY Specimen Anatomical Collection Method Collection Time Receive d Time (Source) Location / / Volume Laterality Blood specimen 08/09/2015 11:04 6 (specimen) AM EDT 11:10 AM EDT Resulting Agency Comment Spec In Lab Trudy Roche MD HEMATOLOGY ORDERABLES Performing Organization Address City/State/[place] [address] Hepatitis C RNA, quantitative, PCR (08/09/2015 11:04 AM EDT) Component Value Ref Test Analysis Performed At [facility] gist Range Method Time Signature HCV Viral 2,690,201 IU/mL [facility] LABORATORY HCV Viral Result: [id number] IU/mL [facility] Indication for Study: Hepatitis C Infection [facility] Analysis: A quantitiative real time reverse transcriptase PCR assay was LABORATORY performed on extracted viral RNA for the purpose of quantifi cation. Sample: plasma (1 mL minimum volume) Method: Agustin Jessica TaqMAN 48 HCV Linear Range: 15 IU/mL - 100,000,000IU/mL (95% CI) Note: This assay is being pe rformed in the [facility] Molecular Pathology Laboratory. Endy Bliss, Ph.D. Director, Molecular Pathology Comment: [VERIFIED DATE]08.15.15 Verified By:Ester Price (Electronic Signature) Specimen Anatomical Collection Method Collection Time Receive d Time (Source) Location / / Volume Laterality Blood specimen 08/09/2015 11:04 6 8:25 (specimen) AM EDT AM EDT Resulting Agency Comment Spec In Lab Trudy Roche MD IMMUNOLOGY ORDERABLES Performing Organization Address City/State/[place] [address] (ABNORMAL) Comprehensive metabolic panel (non-fasting) (08/09/2015 11:04 AM EDT) athologist Signature Glucose Lvl 107 65 - 199 [facility] mg/dL [facility] LABORATORY Comment: Diabetes: >=200 mg/dL plus symp toms BUN 9 (L) 10 - 20 mg/dL [facility] LABORATORY Creatinine 1.20 0.80 - 1.50 mg/dL [facility] LAB[facility]ATORY Comment: Please note that the pediatric reference intervals supplied above were not validated at [facility]. Results from pediatri c patients should be interpreted in conjunction to the patient's age, height and muscle mass. Sodium 142 135 - 145 mmol/L [facility] LABORATORY Potassium 4.6 3.5 - 5.0 mmol/L [facility] LABORATORY Comment: Please note: ??Patients with WBC >100,00 0 may have falsely elevated Potassium levels. ??For accurate Potassium quantif ication in these patients send serum separator tube (gold top) for subsequent determinations. ??Contact the Clinical Chemistry Laboratory if there are any qu estions. Chloride 97 (L) 98 - 107 mmol/L [facility] CO2 31 22 - 31 mmol/L [facility] Anion Gap 14 5 - 15 mmol/L [facility] Calcium 9.6 8.5 - 10.5 mg/dL [facility] Total Protein 7.7 6.1 - 8.0 gm/dL [facility] LABORATORY Albumin 4.1 3.2 - 5.2 gm/dL [facility] AST 18 0 - 39 unit/L [facility] ALT 15 0 - 55 unit/L [facility] Alk Phos 122 (H) 40 - 120 unit/L [facility] Total Bilirubin 0.6 0.2 - 1.3 mg/dL [facility] LABORAT[facility] Bili, Direct 0.1 0.0 - 0.3 mg/dL [facility] LAB[facility] Estimated GFR >60 >=60 [facility] [...] the following links into your internet browser. [email or web address] Specimen Anatomical Collection Method Collection Time Receive d Time (Source) Location / / Volume Laterality Blood specimen 08/09/2015 11:04 6 (specimen) AM EDT 11:10 AM EDT Resulting Agency Comment Spec In Lab Trudy Roche MD CHEMISTRY ORDERABLES Performing Organization Address City/State/[place] [address] US Abdomen Complete With Vascular (08/09/2015 10:16 [...] 12:15 pm) Patient Info ID #: ? [id number] ? : [birth year] (59 yrs) Name: ? SOLEDAD RAMOS ?Visit Date:08/09/2015 10:06 am Performed By Performed By: ? Janette Gandhi RDMS Attending: ?Mehul DYSON, Mau Kelly Associate: ?Chuck DYSON, Raiza Sykes Referred By: ?BRIDGETT LOVE MD Service(s) Provided ??UABDCVASC - Abdominal Complete Survey with Vascular - 84368, 16704 ??[id number] Indications ??Cirrhosis, please evaluate for HCC an [...] 16 12:15 pm) Patient Info ID #: [id number] : [birth year] (59 y rs) Name: SOLEDAD RAMOS Visit Date: 016 10:06 am Performed By Performed By: Janette Gandhi RDMS Attending: Edi Carver MD Associate: Raiza Woods MD Referred By: BRIDGETT LOVE MD Service(s) Provided UABDCVASC - Abdominal Complete Survey w [facility] Vascular - [id number], 01024 [id number] Indications Cirrhosis, please evaluate for HCC and [...] Report 08/08 12:15 pm Trudy Roche MD IMG US GEN ORDERABLES documented in this encounter Visit Diagnoses Diagnosis Chronic hepatitis C without hepatic coma Chronic hepatitis C without hepatic coma documented in this encounter Care Teams Agile Developer Relationship Specialty Start Date End Date Azalia Peña APRN PCP - General 11/19/13 03/19/17 documented as of this encounter
--- OUTSIDE RECORDS SUMMARY | 2021-11-30 08:25 | XMS_ITS | Encounter Summary ---
:1955 Author Organization [facility] [place] [address] Care Team Providers Name Role Phone Azalia Peña APRN Primary Care Provider Encounter Details Date Type Department Care Team Description 08/27/2014 Telephone Rheumatology at [facility] Jason Chatman DO [facility] [place] [address] RHEUMATOLOGY DEPT. [phone] [place], [place] [address] (Wo rk) Social History Tobacco [...] this encounter Miscellaneous Notes Telephone Encounter - Jason Chatman DO - 08/27/2014 11:24 AM EDT Mr. Ramos calls this morning to discuss his pain in his feet. Specifically, he has ongoing and long standing pain in his feet that is unchanged from previous. He has neuropathy, and some question of swelling in his feet. He reports that this is nothing new. He was evaluated by Dr. Silva on last week for this problem. It is unclear if he is looking for more pain medicine, or just calling in to report symptoms that he felt were not discussed with Dr. Silva. Honestly, this was quite a confusing and scattered phone conversation. Ultimately, I advised him that he may try increasing his neurontin to 4 x 300mg tablets in the evening instead of 3 tablets that he is currently taking (becasue he reports waking up in the middle of the night with pain). He will try this. I also advised him that if his pain gets worse, he can go to the ER for in-person evaluation as again it is difficult to trouble shoot his true pain over the phone. He does not wish to go to the ER, he reports his symptoms have not acutely gotten worse. He will call Dr. Silva on Friday to discuss follow up from and for further advice. documented in this encounter Plan of Treatment Upcoming Encounters Date Type Specialty Care Team Description 12/11/2021 Appointment Radiology 12/11/2021 Office Visit Orthopaedics Marion Tavera APRN [facility] DR ORTHOPAEDIC SURG [place], [place] [address] (Wo rk) 01/15/2022 Appointment Radiology Stiven Cervantes MD [facility] Pulmonary Medici [place], [place] [address] (Wo rk) Scheduled Procedures Name Priority Associated Diagnoses Date/Time DEBRIDEMENT SKIN, SUBCU, MUSCLE, R great toe amp utation, wound LOWER EXTREMITY (WRVU 2.7) closure MODIFIER WOUND VAC R great toe amputation, wound closure documented as of this encounter Visit Diagnoses Not on filedocumented in this encounter Care Teams Reliability Manager Relationship Specialty Start Date End Date Azalia Peña APRN PCP - General 11/19/13 03/19/17 documented as of this encounter
--- OUTSIDE RECORDS SUMMARY | 2021-11-30 08:25 | XMS_ITS | Encounter Summary ---
:1955 Author Organization [facility] [place] [address] Care Team Providers Name Role Phone Azalia Peña APRN Primary Care Provider Encounter Details Date Type Department Care Team Description 04/27/2015 Telephone [place] [facility] Amy Becker, [place] [address] Social History Tobacco Use Types Packs/Day [...] this encounter Miscellaneous Notes Telephone Encounter - Amy Becker RN - 04/27/2015 9:00 AM EST Left message on patient voice mail. Dr Mallory is aware patient is anxious to find out next stepsfor his knees. Dr Mallory has confirmed that his case is out for review by several national experts.He will call patient once that information has been obtained. documented in this encounter Plan of Treatment Upcoming Encounters Date Type Specialty Care Team Description 12/11/2021 Appointment Radiology 12/11/2021 Office Visit Orthopaedics Marion Tavera APRN [facility] ORTHOPAEDIC SURG [place], [place] [address] (Wo rk) 01/15/2022 Appointment Radiology Stiven Cervantes MD [facility] Pulmonary Medici [place], [place] [address] (Wo rk) Scheduled Procedures Name Priority Associated Diagnoses Date/Time DEBRIDEMENT SKIN, SUBCU, MUSCLE, R great toe amp utation, wound LOWER EXTREMITY (WRVU 2.7) closure MODIFIER WOUND VAC R great toe amputation, wound closure documented as of this encounter Visit Diagnoses Not on filedocumented in this encounter Care Teams Sausage Maker Relationship Specialty Start Date End Date Azalia Peña APRN PCP - General 11/19/13 03/19/17 documented as of this encounter
--- OUTSIDE RECORDS SUMMARY | 2021-11-30 08:25 | XMS_ITS | Encounter Summary ---
:1955 Author Organization [facility] [address] Care Team Providers Name Role Phone Azalia Peña APRN Primary Care Provider Encounter Details Date Type Department Care Team Description 12/20/2014 Telephone Gastroenterology at [facility] [place] [address] Social History Tobacco Use Types Packs/Day Years [...] this encounter Miscellaneous Notes Telephone Encounter - Maribell Bedolla - 12/20/2014 11:45 AM EDT 6 month F/U with US, former Jack Dowling patient [email or web address] 10/06/2014 07:24AM [email or web address] 11/04/2014 01:13PM [email or web address] 11/16/2014 08:57AM [email or web address] final letter 11/16/2014 08:57AM ANNA documented in this encounter Plan of Treatment Upcoming Encounters Date Type Specialty Care Team Description 12/11/2021 Appointment Radiology 12/11/2021 Office Visit Orthopaedics Marion Tavera APRN [facility] DR ORTHOPAEDIC SURG [place], [place] [address] (Wo rk) 01/15/2022 Appointment Radiology Stiven Cervantes MD [facility] Pulmonary Medici [place], [place] [address] (Wo rk) Scheduled Procedures Name Priority Associated Diagnoses Date/Time DEBRIDEMENT SKIN, SUBCU, MUSCLE, R great toe amp utation, wound LOWER EXTREMITY (WRVU 2.7) closure MODIFIER WOUND VAC R great toe amputation, wound closure documented as of this encounter Visit Diagnoses Not on filedocumented in this encounter Care Teams Personal Attendant Relationship Specialty Start Date End Date Azalia Peña APRN PCP - General 11/19/13 03/19/17 documented as of this encounter
--- OUTSIDE RECORDS SUMMARY | 2021-11-30 08:25 | XMS_ITS | Encounter Summary ---
:1955 Author Organization [facility] Address [address] [place] [address] Care Team Providers Name Role Phone Mariana Azalia Eason APRN Primary Care Provider Reason for Visit Reason Comments Leg Swelling Encounter Details Date Type Department Care Team Description 09/30/2014 Office Visit Dermatology at [facility] Jenni Kruger MD Subungual hemorrhage Road [facility] of toenail, left, [address] [place] [address] [facility] [phone] RD-DERMATOLOGY [place] [id number] Social History Tobacco Use Types Packs/Day Years [...] documented as of this encounter Progress Notes Angelica Meyer MD - 10/04/2014 6:29 AM EDT I was the supervising physician working with dermatology resident Dr. Farrukh Kruger in the dermatology clinic during this patient visit. The level of Resident supervision for this patient visit was indirect supervision with direct supervision immediately available. (definition: [facility] Policy Statement on Graduate Medical Education, Supervision of Graduate Medical Trainees) I was immediately available to Dr. Kruger for questions and discussion regarding this visit. I have reviewed her encounter note details and level of service. Angelica Meyer MD Staff Physician Ryan Kruger MD - 09/30/2014 3:15 PM EDT DERMATOLOGY - NEW PATIENT CONSULT NOTE Date of service: 09/30/2014 Mahin Ramos : 1955 Dermatology Resident Note: Ryan Kruger MD Chief Complaint Patient presents with ??? Nevus This is a new patient, referred by Dr. Monroe. HPI: Mr. Ramos presents for evaluation of left great toe per referral documentation. Pt. And his arehowever unsure of why they have been sent to the ios software engineer. When asked about the toe - he tells me he occasionally bumps it into things as he does with his legs as well. He tells me that he had paid much attention to the black spot, but he things it may have been around for about 1 month. Skin History: None Medical History: Past Medical History Diagnosis Date ??? HTN (hypertension) ??? GERD (gastroesophageal reflux disease) ??? Depression ??? Hepatitis C Medications: Current Outpatient Prescriptions on File Prior to Visit Medication Sig Dispense Refill ??? potassium chloride (KLOR-CON) 20 mEq Packet daily. 0 ??? fish oil-omega-3 fatty acids 1,000 mg Capsule Take 2 g by mouth daily. ??? ibuprofen (ADVIL;MOTRIN) 800 mg Tablet Take 800 mg by mouth daily. ??? gabapentin (NEURONTIN) 300 mg Capsule Take 300 mg by mouth 3 times daily. 0 ??? furosemide (LASIX) 20 mg Tablet Take 20 mg by mouth daily. 1 ??? DULERA 200-5 mcg/actuation HFA Aerosol Inhaler 2 times daily. 0 ??? omeprazole (PRILOSEC) 40 mg [...] 90 tablet 3 No current facility-administered medications on file prior to visit. Allergies: No Known Allergies Family History: No family history of melanoma or non-melanoma skin cancer No family history of atopy, psoriasis or other skin disease Social History: Home Review of Systems: - General: Feels well. - Skin: As per HPI; no other skin concerns. Examination: - Constitutional: Patient was alert, well-appearing and in no noticeable distress. - Skin: An abbreviated skin exam was performed; this includes: bilateral feet Specific skin findings: 1. Left First Toe, subungually - a 0.7 cm well demarcated dark black/blue/red blotch approximately 4mm from the proximal nail fold. Diffuse color and featureless on dermoscopy. No pigment appreciated on the periungual skin. Diagnosis/Assessment/Treatment Plan: 1. Subungual Hemorrhage: benign, patient reassured the lesion is not concerning for melanoma on today's exam - pt. Was instructed to watch for resolution of the lesion, that is to watch for it move more and more distally with growth of the nail - he was informed that complete re-growth of the nail takes anywhere from 12-18 months. Instructed to let me know if the lesion does not follow this pattern, but instead enlarges and/or migrates proximally. RTC PRN. Instructed to call for questions/concerns. I am documenting this encounter acting as the scribe for and in the presence of MD Aminata Serna LPN I performed the above scribed service and agree with the accuracy of the documentation in this encounter, Ryan Kruger MD Reviewed and signed by Ryan Kruger MD Resident in Dermatology [facility] Staff ios software engineer: Angelica Meyer MD Section of Dermatology [facility] documented in this encounter Plan of Treatment Upcoming Encounters Date Type Specialty Care Team Description 12/11/2021 Appointment Radiology 12/11/2021 Office Visit Orthopaedics Marion Tavera APRN [facility] DR ORTHOPAEDIC SURG [place], [place] [address] (Wo rk) 01/15/2022 Appointment Radiology Stiven Cervantes MD [facility] Dr Pulmonary Medici [place], [place] [address] (Wo rk) Scheduled Procedures Name Priority Associated Diagnoses Date/Time DEBRIDEMENT SKIN, SUBCU, MUSCLE, R great toe amp utation, wound LOWER EXTREMITY (WRVU 2.7) closure MODIFIER WOUND VAC R great toe amputation, wound closure documented as of this encounter Visit Diagnoses Diagnosis Subungual hemorrhage of toenail, left, i nitial encounter documented in this encounter Care Teams Fws Faculty Assistant Relationship Specialty Start Date End Date Azalia Peña APRN PCP - General 11/19/13 03/19/17 documented as of this encounter
--- OUTSIDE RECORDS SUMMARY | 2021-11-30 08:25 | XMS_ITS | Encounter Summary ---
:1955 Author Organization [facility] [address] Care Team Providers Name Role Phone Azalia Peña APRN Primary Care Provider Reason for Visit Reason Comments Left Ankle Pain DOI 06/04/15 Encounter Details Date Type Department Care Team Description 06/13/2015 Office Visit Orthopaedics at [facility] Gordon Mallory Ankle fracture, left [facility] [place] [address] [place] [address] ORTHOPAEDICS [place], [place] [address] Social History Tobacco Use Types Packs/Day Years Used Date Former Smoker Cigarettes 0.1 42 Smokeless Tobacco: Former User Comments: STATES THAT HE STOPPED TWO MON THS AGO 04/2015 Alcohol Use Standard Drinks/Week Comments Yes 17.5 (1 standard drink = 0.6 oz pure alc ohol) [facility] Alcohol Habits Answer Date Recorded How often [...] Sign Reading Time Taken Comments Blood Pressure 120/83 06/13/2015 10:49 AM EST Pulse 71 06/13/2015 10:49 AM EST Temperature - - Respiratory Rate - - Oxygen Saturation - - Inhaled Oxygen Concentration - - Weight 93 kg (205 lb) 06/13/2015 10:49 AM EST STATED Height 176.5 cm (5' 9.5) 06/13/2015 10:49 AM EST STATE D Body Mass Index 29.84 06/13/2015 10:49 AM EST documented in this encounter Progress Notes Alma Randolph - 06/14/2015 9:45 AM EST Mahin Ramos presents to the cast room for a cast on per Dr. Mallory. The patient's skin was assessed at his appointment. The patient is going into a well padded short leg cast on the left side. Thepatient tolerated the procedure well. The patient was given instructions for cast care and was giveninstruction to call the nurse with any questions or concerns. Arcadio Aggarwal PA - 06/13/2015 12:27 PM EST Subjective: Mahin Ramos is a 59 y.o. right hand-dominant male who returns for follow-up of a left ankle (distal tibia) fracture. The injury occurred 7 days ago. He reports no problems with the splint or injury, and no problems with swelling, numbness, or tingling in his foot. Patient states that he has been putting weight on it only using one crutch to ambulate. Patient's medications, allergies, past medical, surgical, social and family histories were reviewed and updated as appropriate. Objective: General: alert, appears stated age and cooperative Gait: non weight bearing left leg Left ankle Cast Condition: splint is intact but has been rewrapped Circulation: well perfused, brisk capillary refill distal to the injury Skin: ecchymosis, small pressure areas Swelling: present Deformity: There is not an obvious deformity of the ankle Sensation: intact to light touch Imaging X-ray right ankle: no change in fracture site with acceptable alignment. Assessment: AssessmentResolving fracture without complication. Plan: Cast short leg NWB applied Follow up will be in 4 weeks for cast removal and reevaluation with xrays. Patient was seen and evaluated with NIEVES Palmer documented in this encounter Plan of Treatment Upcoming Encounters Date Type Specialty Care Team Description 12/11/2021 Appointment Radiology 12/11/2021 Office Visit Orthopaedics Marion Tavera APRN [facility] ORTHOPAEDIC SURG [place], [place] [address] (Wo rk) 01/15/2022 Appointment Radiology Stiven Cervantes MD [facility] Pulmonary Medici [place], [place] [address] (Wo rk) Scheduled Procedures Name Priority Associated Diagnoses Date/Time DEBRIDEMENT SKIN, SUBCU, MUSCLE, R great toe amp utation, wound LOWER EXTREMITY (WRVU 2.7) closure MODIFIER WOUND VAC R great toe amputation, wound closure documented as of this encounter Results XR Ankles Bilateral (07/25/2015 [...] ankle documented in this encounter Care Teams Hide Inspector And Sorter Relationship Specialty Start Date End Date Azalia Peña APRN PCP - General 11/19/13 03/19/17 documented as of this encounter
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
--- OUTSIDE RECORDS SUMMARY | 2021-11-30 08:25 | XMS_ITS | Encounter Summary ---
:1955 Author Organization [facility] Address [facility] [place] [address] Care Team Providers Name Role Phone Azalia Peña APRN Primary Care Provider Encounter Details Date Type Department Care Team Description 06/13/2015 Hospital Encounter [facility]Ray at [facility] Gordon Mallory Pain in joint of [address] [place] [address] Dr Sd MD left ankle or foot [address] [phone] [place] [address] Social History Tobacco Use Types Packs/Day Years [...] 12/11/2021 Office Visit Orthopaedics Marion Tavera APRN [facility] ER DR ORTHOPAEDIC SURG [place], [place] [address] (Wo rk) 01/15/2022 Appointment Radiology Stiven Cervantes MD [facility] er Pulmonary Medici [place], [place] [address] (Wo rk) Scheduled Procedures Name Priority Associated Diagnoses Date/Time DEBRIDEMENT SKIN, SUBCU, MUSCLE, R great toe amp utation, wound LOWER EXTREMITY (WRVU 2.7) closure MODIFIER WOUND VAC R great toe amputation, wound closure documented as of this encounter Procedures Procedure Name Priority Date/Time Associated Diagnosis Comme nts XR ANKLE MIN 3 Routine 06/13/2015 10:09 AM Pain in joint of Re sults for this VIEWS LEFT EST left ankle or foot procedure are in the results section. documented [...] foot documented in this encounter Care Teams Director Of Psychology Relationship Specialty Start Date End Date Azalia Peña APRN PCP - General 11/19/13 03/19/17 documented as of this encounter
--- OUTSIDE RECORDS SUMMARY | 2021-11-30 08:25 | XMS_ITS | Encounter Summary ---
:1955 Author Organization [facility] [place] [address] Care Team Providers Name Role Phone Azalia Peña APRN Primary Care Provider Encounter Details Date Type Department Care Team Description 04/25/2015 Telephone Orthopaedics at [facility] Amy Becker, [place] [address] Social History Tobacco Use Types Packs/Day [...] Telephone Encounter - Rick Avila RN - 04/26/2015 12:59 PM EST As was discussed with him at his appointment, I have his case out for review by several other national experts. As soon as I hear from them, I will give him a call. Thanks. Rodrigo ----- Message ----- From: Amy Becker RN Sent: 04/25/2015 2:16 PM To: Gordon Mallory MD Awaiting discussion regarding next step for knee surgery. Patient has called several times. Telephone Encounter - Amy Becker RN - 04/25/2015 2:18 PM EST Patient waiting for discussion with Dr Salazar documented in this encounter Plan of Treatment Upcoming Encounters Date Type Specialty Care Team Description 12/11/2021 Appointment Radiology 12/11/2021 Office Visit Orthopaedics Marion Tavera APRN [facility] ORTHOPAEDIC SURG [place], [place] [address] (Wo rk) 01/15/2022 Appointment Radiology Stiven Cervantes MD [facility] Pulmonary Medici [place], [place] [address] (Wo rk) Scheduled Procedures Name Priority Associated Diagnoses Date/Time DEBRIDEMENT SKIN, SUBCU, MUSCLE, R great toe amp utation, wound LOWER EXTREMITY (WRVU 2.7) closure MODIFIER WOUND VAC R great toe amputation, wound closure documented as of this encounter Visit Diagnoses Not on filedocumented in this encounter Care Teams Sumo Wrestler Relationship Specialty Start Date End Date Azalia Peña APRN PCP - General 11/19/13 03/19/17 documented as of this encounter
--- OUTSIDE RECORDS SUMMARY | 2021-11-30 08:25 | XMS_ITS | Encounter Summary ---
:1955 Author Organization [facility] [place] [address] Care Team Providers Name Role Phone Azalia Peña APRN Primary Care Provider Encounter Details Date Type Department Care Team Description 06/04/2015 Telephone Orthopaedics at [facility] Austin Peres MD [facility] [place] [address] ORTHOPAEDIC SURGERY [phone] [place] [id number] (Wo rk) Social History Tobacco Use Types [...] this encounter Miscellaneous Notes Telephone Encounter - Austin Peres MD - 06/04/2015 10:08 AM EST On-call Orthopaedics Note Received call from [facility] ED regarding Mr. Leete's L ankle injury. Reviewed x-rays which demonstrated a nondisplaced L medial mal fracture. Injury closed, NVI. Staff there comfortable splinting the injured ankle. Will call patient after discussion with Dr. Mallory regarding upcoming plannedR TKA surgery and plan for follow up. Jesse Peres Orthopaedic Surgery Pager #[phone] documented in this encounter Plan of Treatment Upcoming Encounters Date Type Specialty Care Team Description 12/11/2021 Appointment Radiology 12/11/2021 Office Visit Orthopaedics Marion Tavera APRN [facility] ER ORTHOPAEDIC SURG [place], [place] [address] (Wo rk) 01/15/2022 Appointment Radiology Stiven Cervantes MD [facility] er Pulmonary Medici [place], [place] [address] (Wo rk) Scheduled Procedures Name Priority Associated Diagnoses Date/Time DEBRIDEMENT SKIN, SUBCU, MUSCLE, R great toe amp utation, wound LOWER EXTREMITY (WRVU 2.7) closure MODIFIER WOUND VAC R great toe amputation, wound closure documented as of this encounter Visit Diagnoses Not on filedocumented in this encounter Care Teams District Sales Representative Relationship Specialty Start Date End Date Azalia Peña APRN PCP - General 11/19/13 03/19/17 documented as of this encounter
--- OUTSIDE RECORDS SUMMARY | 2021-11-30 08:25 | XMS_ITS | Encounter Summary ---
:1955 Author Organization [place] [address] Care Team Providers Name Role Phone Azalia Peña APRN Primary Care Provider Encounter Details Date Type Department Care Team Description 05/09/2015 Orders Only Orthopaedics at [facility] Mallory, Avascular necrosis bilateral knees; [facility] Bilateral [place] [address] ORTHOPAEDICS [place], [place] [address] Social History Tobacco Use Types [...] Orthopaedics Marion Tavera APRN [facility] ORTHOPAEDIC SURG [place], [place] 0[address] (Wo rk) 01/15/2022 Appointment Radiology Stiven Cervantes MD [facility] Pulmonary Mediccharlie villegas [place], [place] [address] (Wo rk) Scheduled Procedures Name [...] joint, lower leg documented in this encounter Care Teams Webmaster Relationship Specialty Start Date End Date Azalia Peña APRN PCP - General 11/19/13 03/19/17 documented as of this encounter
--- OUTSIDE RECORDS SUMMARY | 2021-11-30 08:25 | XMS_ITS | Encounter Summary ---
:1955 Author Organization [employer] Address [address] [facility] [place] [address] Care Team Providers Name Role Phone Azalia Peña APRN Primary Care Provider Encounter Details Date Type Department Care Team Description 09/06/2014 Hospital Encounter Laboratory Field, Majo Roque, Chronic hepatitis C without hepatic coma; [facility] Left foot pain; [facility] Peripheral neuropathy [facility] [address] RHEUMATOLOGY [phone] [place] [id number] Social History Tobacco Use Types Packs/Day Years [...] APRN [facility] ORTHOPAEDIC SURG [place], [place] 0[address] (Wo rk) 01/15/2022 Appointment Radiology Stiven Cervantes MD [facility] Pulmonary Medici [place], [place] [address] (Wo rk) Scheduled Procedures Name Priority Associated Diagnoses Date/Time DEBRIDEMENT SKIN, SUBCU, MUSCLE, R great toe amp utation, wound LOWER EXTREMITY (WRVU 2.7) closure MODIFIER WOUND VAC R great toe amputation, wound closure documented as of this encounter Procedures Procedure Name Priority Date/Time Associated Comments Diagnosis RNA POLYMERASE III Routine 09/06/2014 11:46 Resul ts for this AB,IGG AM EDT procedure are i n the results section. EXTRACTABLE NUCLEAR Routine 09/06/2014 11:46 Resu lts for this ANTIGEN (ANTIONE) AB AM EDT procedure a re in the results section. IMMUNOGLOBULINS, Routine 09/06/2014 11:46 Chronic hepatitis C Results for this QUANTITATIVE AM EDT without hepatic procedure ar e in coma the results Left foot pain section. Peripheral neuropathy NUCLEATED RED BLOOD Routine 09/06/2014 11:46 Resu lts for this CELLS AM EDT procedure are i n the results section. ANTI-CYCLIC Routine 09/06/2014 11:46 Chronic hepatitis C Resu lts for this CITRULLINATED PEPTIDE AM EDT without hepatic pro cedure are in AB coma the results Left foot pain section. Peripheral neuropathy DNA ANTIBODY Routine 09/06/2014 11:46 Results for this (DOUBLE-STRANDED) AM EDT procedure are in the results section. HEMOGRAM Routine 09/06/2014 11:46 Chronic hepatitis C Resu lts for this AM EDT without hepatic procedure ar e in coma the results Left foot pain section. Peripheral neuropathy DIFFERENTIAL, Routine 09/06/2014 11:46 Chronic hepatitis C Res ults for this AUTOMATED AM EDT without hepatic procedure ar e in coma the results Left foot pain section. Peripheral neuropathy MITOCHONDRIAL Routine 09/06/2014 11:46 Results fo r this ANTIBODY, M2 AM EDT procedure are i n the results section. CRYOGLOBULIN Routine 09/06/2014 11:46 Chronic hepatitis C Resu lts for this AM EDT without hepatic procedure ar e in coma the results Left foot pain section. Peripheral neuropathy SMOOTH MUSCLE ANTIBODY Routine 09/06/2014 11:46 R esults for this AM EDT procedure are i n the results section. SEDIMENTATION RATE Routine 09/06/2014 11:46 Chronic hepatitis C Results for this AM EDT without hepatic procedure ar e in coma the results Left foot pain section. Peripheral neuropathy CBC (WITH DIFF) Routine 09/06/2014 11:46 Chronic hepatitis C AM EDT without hepatic coma Left foot pain Peripheral neuropathy RHEUMATOID FACTOR, Routine 09/06/2014 11:46 Chronic hepatitis C Results for this QUANT AM EDT without hepatic procedure ar e in coma the results Left foot pain section. Peripheral neuropathy COMPLEMENT, TOTAL Routine 09/06/2014 11:46 Chronic hepatitis C Results for this AM EDT without hepatic procedure ar e in coma the results Left foot pain section. Peripheral neuropathy C3 COMPLEMENT Routine 09/06/2014 11:46 Chronic hepatitis C Res ults for this AM EDT without hepatic procedure ar e in coma the results Left foot pain section. Peripheral neuropathy C4 COMPLEMENT Routine 09/06/2014 11:46 Chronic hepatitis C Res ults for this AM EDT without hepatic procedure ar e in coma the results Left foot pain section. Peripheral neuropathy CRP, CARDIAC RISK (HS Routine 09/06/2014 11:46 Chronic hepatit is C Results for this CRP) AM EDT without hepatic procedure ar e in coma the results Left foot pain section. Peripheral neuropathy HUANG Routine 09/06/2014 11:46 Chronic hepatitis C Resu lts for this AM EDT without hepatic procedure ar e in coma the results Left foot pain section. Peripheral neuropathy PROTEIN Routine 09/06/2014 11:46 Chronic hepatitis C Resu lts for this ELECTROPHORESIS, SERUM AM EDT without hepatic pr ocedure are in coma the results Left foot pain section. Peripheral neuropathy COMPREHENSIVE Routine 09/06/2014 11:46 Chronic hepatitis C Res ults for this METABOLIC PANEL AM EDT without hepatic procedure are in (NON-FASTING) coma the results Left foot pain section. Peripheral neuropathy documented in this encounter Results (ABNORMAL) Extractable Nuclear Antigen (ANTIONE) Ab (09/06/2014 11:46 AM EDT) [facility] Method Time Signature ANTIONE Ab CERNER Test ?Result ?Flag ??Unit ??RefValue MILLENNIUM Ab to Extractable Nuclear Ag Eval,S ??SS-A/Ro Ab, IgG, S ?<0.2 ?U -- REFERENCE VALUE -- <1.0 (Negative) ??SS-B/La Ab, IgG, S ?4.5 ?H ?U -- REFERENCE VALUE -- <1.0 (Negative) Interpretation: Positive (>=1.0) ??Sm Ab, IgG, S ? <0.2 ? U -- REFERENCE VALUE -- <1.0 (Negative) ??ADMINISTRATIVE SUPPORT CLERK Ab, IgG, S ?<0.2 ? U -- REFERENCE VALUE -- <1.0 (Negative) ??Scl 70 Ab, IgG, S ? <0.2 ?U -- REFERENCE VALUE -- <1.0 (Negative) ??Kelli 1 Ab, IgG, S ? <0.2 ?U -- REFERENCE VALUE -- <1.0 (Negative) Test Performed by: [place] [address] News Clipping Cutter: Berna Phelan, Ph.D. (A) Specimen Anatomical Collection Method Collection Time Receive d Time (Source) Location / / Volume Laterality Blood specimen Venous Draw / 09/06/2014 11:46 09/13/19 15 (specimen) Unknown AM EDT 12:26 PM EDT Resulting Agency Comment Spec In Lab Majo Silva MD IMMUNOLOGY ORDERABLES Performing Organization Address City/State/[place] [address] CERNER MILLENNIUM Smooth Muscle Antibody (09/06/2014 11:46 AM EDT) P athologist Signature Sm Muscle Ab Negative Negative CERNER MILLENNIUM Comment: Test Performed by: [facility] [address] [place] [address] News Clipping Cutter: Ed Sheppard II, M.D., Ph.D. Specimen Anatomical Collection Method Collection Time Receive d Time (Source) Location / / Volume Laterality Blood specimen Venous Draw / 09/06/2014 11:46 09/13/19 15 8:53 (specimen) Unknown AM EDT AM EDT Resulting Agency Comment Spec In Lab Majo Silva MD IMMUNOLOGY ORDERABLES Performing Organization Address City/[facility] Code Phon e Number [address] CERNER MILLENNIUM Mitochondrial Antibody, M2 (09/06/2014 11:46 AM EDT) P athologist Signature Mitochon Ab <0.1 <0.1 CERNER (Negative) MILLENNIUM U Comment: Test Performed by: [place] [address] News Clipping Cutter: Ed Sheppard II, M.D., Ph.D. Specimen Anatomical Collection Method Collection Time Receive d Time (Source) Location / / Volume Laterality Blood specimen Venous Draw / 09/06/2014 11:46 09/13/19 15 8:53 (specimen) Unknown AM EDT AM EDT Resulting Agency Comment Spec In Lab Majo Silva MD IMMUNOLOGY ORDERABLES Performing Organization Address City/[facility]/ZIP Code Phon e Number [address] CERNER MILLENNIUM RNA Polymerase III Ab,IgG (09/06/2014 11:46 AM EDT) P athologist Signature RNA Polymerase <10.0 <20.0 CERNER III Ab, IgG (Negative) MILLENNIUM U Comment: Test Performed by: [facility] [place] [address] News Clipping Cutter: Ed Sheppard II, M.D., Ph.D. Specimen Anatomical Collection Method Collection Time Receive d Time (Source) Location / / Volume Laterality Blood specimen Venous Draw / 09/06/2014 11:46 09/13/19 15 8:53 (specimen) Unknown AM EDT AM EDT Resulting Agency Comment Spec In Lab Majo Silva MD CHEMISTRY ORDERABLES Performing Organization Address City/[facility]/[place] [address] CERNER MILLENNIUM DNA Antibody (Double-Stranded) (09/06/2014 11:46 AM EDT) athologist Signature DNA Ab (DS) Neg Neg CERNER MILLENNIUM Specimen Anatomical Collection Method Collection Time Receive d Time (Source) Location / / Volume Laterality Blood specimen 09/06/2014 11:46 5 2:15 (specimen) AM EDT PM EDT Resulting Agency Comment Spec In Lab Majo Silva MD CHEMISTRY ORDERABLES Performing Organization Address City/[facility]/ZIP Code Phon e Number [address] CERNER MILLENNIUM Nucleated Red Blood Cells (09/06/2014 11:46 AM EDT) athologist Signature nRBC % Auto 0.0 % CERNER MILLENNIUM nRBC Abs Auto 0.000 0.000 - CERNER 0.012 MILLENNIUM x10(3)/mcL Specimen Anatomical Collection Method Collection Time Receive d Time (Source) Location / / Volume Laterality Blood specimen 09/06/2014 11:46 5 (specimen) AM EDT 11:51 AM EDT Resulting Agency Comment Spec In Lab Majo Silva MD HEMATOLOGY ORDERABLES Performing Organization Address City/[facility]/ZIP Code Phon e Number [address] CERNER MILLENNIUM (ABNORMAL) Differential, Automated (09/06/2014 11:46 AM EDT) [facility] gist Method Time Signature Neutrophils % 68.8 % CERNER MILLENNIUM Neutr Abs (ANC) 9.20 (H) 1.50 - CERNER 6.30 MILLENNIUM x10(3)/mc L Lymphocytes % 17.8 % CERNER MILLENNIUM Lymphocytes Abs 2.4 1.0 - 3.6 CERNER x10(3)/mc MILLENNIUM L Monocytes % 10.8 % CERNER MILLENNIUM Monocyte Abs 1.4 (H) 0.2 - 1.0 CERNER x10(3)/mc MILLENNIUM L Eosinophils % 1.8 % CERNER MILLENNIUM Eosinophils Abs 0.2 0.0 - 0.5 CERNER x10(3)/mc MILLENNIUM L Basophils % 0.4 % CERNER MILLENNIUM Basophils Abs 0.1 0.0 - 0.2 CERNER x10(3)/mc MILLENNIUM L Immature Gran % 0.40 % CERNER MILLENNIUM Comment: Immature granulocytes(IG's)percentage an d absolute count will include metamyelocytes, myelocytes, and promyelo cytes. Blood smears from CBCs yielding IG's will be scanned manually for concor dance. If this scan disagrees with the automated IG or if promyelocytes are not ed, a manual differential will be performed. Shannan Gran Abs 0.05 0.00 - 0.05 x10(3)/mcL CER NER MILLENNIUM Specimen Anatomical Collection Method Collection Time Receive d Time (Source) Location / / Volume Laterality Blood specimen 09/06/2014 11:46 5 (specimen) AM EDT 11:51 AM EDT Resulting Agency Comment Spec In Lab Majo Silva MD HEMATOLOGY ORDERABLES Performing Organization Address City/State/[place] [address] CERNER MILLENNIUM (ABNORMAL) Hemogram (09/06/2014 11:46 AM EDT) P athologist Signature WBC 13.4 (H) 4.0 - 10.0 CERNER x10(3)/mcL MILLENNIUM RBC 4.26 (L) 4.63 - CERNER 6.08 MILLENNIUM x10(6)/mcL Hemoglobin 14.5 13.7 - CERNER 17.5 gm/dL MILLENNIUM Hematocrit 42.5 40.0 - CERNER 51.0 % MILLENNIUM MCV 99.8 (H) 79.0 - CERNER 92.0 fL MILLENNIUM MCH 34.0 (H) 25.6 - CERNER 32.2 pg MILLENNIUM MCHC 34.1 32.0 - CERNER 36.5 gm/dL MILLENNIUM Platelets 305 145 - 370 CERNER x10(3)/mcL MILLENNIUM RDWSD 52.9 (H) 35.0 - CERNER 46.0 fL MILLENNIUM RDWCV 14.5 (H) 10.9 - CERNER 14.4 % MILLENNIUM MPV 10.1 9.0 - 12.0 CERNER fL MILLENNIUM Specimen Anatomical Collection Method Collection Time Receive d Time (Source) Location / / Volume Laterality Blood specimen 09/06/2014 11:46 5 (specimen) AM EDT 11:51 AM EDT Resulting Agency Comment Spec In Lab Majo Silva MD HEMATOLOGY ORDERABLES Performing Organization Address City/[facility]/ZIP Code Phon e Number [address] CERNER MILLENNIUM Immunoglobulins, Quantitative (09/06/2014 11:46 AM EDT) P athologist Signature IgG 729 700 - 1,600 [...] Silva MD CHEMISTRY ORDERABLES Performing Organization Address City/[facility]/ZIP Code Phon e Number [address] CERNER MILLENNIUM Protein Electrophoresis, [...] Silva MD CHEMISTRY ORDERABLES Performing Organization Address City/[facility]/ZIP Code Phon e Number [address] CERNER MILLENNIUM Cryoglobulin (09/06/2014 11:46 [...] Silva MD CHEMISTRY ORDERABLES Performing Organization Address [facility] Phon e Number [address] CERNER MILLENNIUM Complement, Total (09/06/2014 11:46 AM EDT) P athologist Signature Complement 61 30 - 75 CERNER Total unit/mL MILLENNIUM Comment: Test Performed by: [facility] [place] [address] News Clipping Cutter: Kellen Colon Specimen Anatomical Collection Method Collection Time Receive d Time (Source) Location / / Volume Laterality Blood specimen 09/06/2014 11:46 5 1:04 (specimen) AM EDT PM EDT Resulting Agency Comment Spec In Lab Majo Silva MD CHEMISTRY ORDERABLES Performing Organization Address City/[facility]/ZIP [facility] Phon e Number [address] CERNER MILLENNIUM C4 Complement (09/06/2014 11:46 AM EDT) P athologist Signature C4 Complement 17 10 - 40 CERNER mg/dL MILLENNIUM Specimen Anatomical Collection Method Collection Time Receive d Time (Source) Location / / Volume Laterality Blood specimen 09/06/2014 11:46 5 (specimen) AM EDT 11:51 AM EDT Resulting Agency Comment Spec In Lab Majo Silva MD CHEMISTRY ORDERABLES Performing Organization Address City/State/ZIP Code Phon e Number [place] [address] CERNER MILLENNIUM C3 Complement (09/06/2014 11:46 AM EDT) athologist Signature C3 Complement 130 90 - 180 CERNER mg/dL MILLENNIUM Specimen Anatomical Collection Method Collection Time Receive d Time (Source) Location / / Volume Laterality Blood specimen 09/06/2014 11:46 5 (specimen) AM EDT 11:51 AM EDT Resulting Agency Comment Spec In Lab Majo Silva MD CHEMISTRY ORDERABLES Performing Organization Address City/[facility] Code Phon e Number [place] [address] CERNER MILLENNIUM (ABNORMAL) Comprehensive metabolic panel (non-fasting) (09/06/2014 11:46 AM EDT) athologist Signature Glucose Lvl 89 60 - 199 CERNER mg/dL MILLENNIUM Comment: Diabetes: >=200 mg/dL plus symp toms BUN 13 10 - 20 mg/dL CERNER MILLENNIU M Creatinine 1.09 0.80 - 1.50 mg/dL CERNER MILL ENNIUM Comment: Please note that the pediatric reference intervals supplied above were not validated at [facility] [place]. Results from pediatri c [...] CERNER MILL ENNIUM Estimated GFR >60 >=60 CERNER MILLENNIU M [...] the following links into your internet browser. [email or web address] Specimen Anatomical Collection Method Collection Time Receive d Time (Source) Location / / Volume Laterality Blood specimen 09/06/2014 11:46 5 (specimen) AM EDT 11:51 AM EDT Resulting Agency Comment Spec In Lab Majo Silva MD CHEMISTRY ORDERABLES Performing Organization Address City/State/[place] [address] CERNER MILLENNIUM High Sensitivity CRP (09/06/2014 11:46 AM EDT) P athologist Signature CRP High Sens 8.7 mg/L CERNER MILLENNIUM Comment: Interpretations: 1) For accurate cardiac risk [...] Silva MD CHEMISTRY ORDERABLES Performing Organization Address City/[facility]/ZIP Code Phon e Number [address] CERNER Carbylan BioSurgeryAURORA EAST HOSPITALIUM Sedimentation rate (09/06/2014 11:46 AM EDT) P athologist Signature Sed Rate 9 0 - 15 CERNER mm/hr MILLENNIUM Specimen Anatomical Collection Method Collection Time Receive d Time (Source) Location / / Volume Laterality Blood specimen 09/06/2014 11:46 5 (specimen) AM EDT 11:51 AM EDT Resulting Agency Comment Spec In Lab Majo Silva MD HEMATOLOGY ORDERABLES Performing Organization Address City/[facility]/ZIP Code Phon e Number [address] CERNER Carbylan BioSurgeryAURORA EAST HOSPITALIUM (ABNORMAL) Rheumatoid factor, quant (09/06/2014 11:46 AM EDT) P athologist Signature RF 21 (H) <=14 IU/mL CERNER MILLAURORA EAST HOSPITALIUM Specimen Anatomical Collection Method Collection Time Receive d Time (Source) Location / / Volume Laterality Blood specimen 09/06/2014 11:46 5 (specimen) AM EDT 11:51 AM EDT Resulting Agency Comment Spec In Lab Majo Silva MD IMMUNOLOGY ORDERABLES Performing Organization Address City/[facility]/ZIP Code Phon e Number [address] CERNER MILLENNIUM Cyclic Citrullinated Peptide (09/06/2014 11:46 AM EDT) P athologist Signature Anti-Cyc Cit <8.0 <=17.0 CERNER Peptide unit/mL MILLENNIUM Specimen Anatomical Collection Method Collection Time Receive d Time (Source) Location / / Volume Laterality Blood specimen 09/06/2014 11:46 5 (specimen) AM EDT 11:51 AM EDT Resulting Agency Comment Spec In Lab Majo Silva MD CHEMISTRY ORDERABLES Performing Organization Address City/[facility]/ZIP Code Phon e Number [address] CERNER MILLENNIUM (ABNORMAL) HUANG (09/06/2014 11:46 AM EDT) athologist Signature HUANG Pos (A) Neg CERNER MILLENNIUM Comment: mixed pattern seen 1:80 Titer seen with Speckled pattern. ??Is suggestive of autoantibodies to Sm, ADMINISTRATIVE SUPPORT CLERK, SCL-70, or SS-B. 1:80 Cytoplasmic patter n present using HEP-2 substrate. ??Is suggestive of autoantibodies to mitochondria or smooth muscle. Specimen Anatomical Collection Method Collection Time Receive d Time (Source) Location / / Volume Laterality Blood specimen 09/06/2014 11:46 5 2:15 (specimen) AM EDT PM EDT Resulting Agency Comment Spec In Lab Majo Silva MD IMMUNOLOGY ORDERABLES Performing Organization Address City/[facility]/[place] [address] CERNER MILLENNIUM documented in this encounter Visit Diagnoses Diagnosis Chronic hepatitis C without hepatic coma Left foot pain Pain in limb Peripheral neuropathy Unspecified hereditary and idiopathic pe ripheral neuropathy documented in this encounter Care Teams Laboratory Administrative Director Relationship Specialty Start Date End Date Azalia Peña APRN PCP - General 11/19/13 03/19/17 documented as of this encounter
--- OUTSIDE RECORDS SUMMARY | 2021-11-30 08:25 | XMS_ITS | Encounter Summary ---
:1955 [place] [address] Care Team Providers Name Role Phone Azalia Peña APRN Primary Care Provider Encounter Details Date Type Department Care Team Description 10/07/2014 External Results [place] [facility] [place]ilio Khanna MD [facility] [place] [address] NEUROLOGY DEPT. [phone] [place], [place] 0[address] (Wo rk) Social History Tobacco [...] Orthopaedics Marion Tavera APRN [facility] DR ORTHOPAEDIC SURG [place], [place] [address] (Wo rk) 01/15/2022 Appointment Radiology Stiven Cervantes MD [facility] Pulmonary Medici [place], [place] [address] (Wo rk) Scheduled Procedures Name Priority Associated Diagnoses Date/Time DEBRIDEMENT SKIN, SUBCU, MUSCLE, R great toe amp utation, wound LOWER EXTREMITY (WRVU 2.7) closure MODIFIER WOUND VAC R great toe amputation, wound closure documented as of this encounter Procedures Procedure Name Priority Date/Time Associated Diagnosis Comme nts EMG SCAN Routine 10/06/2014 documented in this encounter Results Scan Doc: EMG (10/06/2014) Narrative This result has an attachment that is no t available. Basilio Khanna MD MEDIA MGR SCAN EXT ORDR/RSLT documented in this encounter Visit Diagnoses Not on filedocumented in this encounter Care Teams Secretary Administrative Assistant Relationship Specialty Start Date End Date Azalia Peña APRN PCP - General 11/19/13 03/19/17 documented as of this encounter
--- OUTSIDE RECORDS SUMMARY | 2021-11-30 08:25 | XMS_ITS | Encounter Summary ---
:1955 Author Organization [facility] Address [facility] [place] [address] Care Team Providers Name Role Phone Azalia Peña APRN Primary Care Provider Reason for Visit Reason Onset Date Comments Questions 05/09/2015 Patient called back looking for Dr. Mallory. Patient has further questions ab out surgery. Encounter Details Date Type Department Care Team Description 05/09/2015 Telephone Orthopaedics [place] [facility] [place] Gordon Mallory, Questions (Patient [facility] Jenni hammer [place] [address] [facility] for Dr. Mallory. [phone] Patient has further ORTHOPAEDICS questions about [place] [id number] 6 surgery.) Social History Tobacco Use Types Packs/Day Years [...] this encounter Miscellaneous Notes Telephone Encounter - Soy Neri - 05/09/2015 11:17 AM EST Who is calling: Mahin Ramos What is the question: Patient called back looking for Dr. Mallory. Patient has further questions about surgery. Patient apologizes for any confusion but is looking for some clarification. 1: where does bone for graft come from? 2: for the new joint do they cut off the existing bone. 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 I had sent his x-rays and out to several national experts for discussion. We discussed the possibility of doing a right total knee arthroplasty with long stems. I explained that this may or may not give significant pain relief. The other o ption would be core decompression, but this does not appear to be as viable option because of his age and likely cartilage damage. He would like to discuss this with his family, and will notify us if he wishes to proceed. documented in this encounter Plan of Treatment Upcoming Encounters Date Type Specialty Care Team Description 12/11/2021 Appointment Radiology 12/11/2021 Office Visit Orthopaedics Marion Tavera APRN [facility] ORTHOPAEDIC SURG [place], [place] [address] (Wo rk) 01/15/2022 Appointment Radiology Stiven Cervantes MD [facility] Pulmonary Medici [place], [place] [address] (Wo rk) Scheduled Procedures Name Priority Associated Diagnoses Date/Time DEBRIDEMENT SKIN, SUBCU, MUSCLE, R great toe amp utation, wound LOWER EXTREMITY (WRVU 2.7) closure MODIFIER WOUND VAC R great toe amputation, wound closure documented as of this encounter Visit Diagnoses Not on filedocumented in this encounter Care Teams Redeye Gunner Relationship Specialty Start Date End Date Azalia Peña APRN PCP - General 11/19/13 03/19/17 documented as of this encounter
--- OUTSIDE RECORDS SUMMARY | 2021-11-30 08:25 | XMS_ITS | Encounter Summary ---
:1955 Author Organization [facility] [address] Care Team Providers Name Role Phone Azalia Peña APRN Primary Care Provider Reason for Visit Reason Comments Pain Management Consultation (Routine) - Closed Specialty Diagnoses / Procedures Referred By Contact Refer red To Contact Pain Management Diagnoses chronic joint/back pain Azalia Peña Zleb Pain Management 3d STERILISATION TECHNICIAN [facility] [address] [place] [address] [place] [phone] Fax: Referral ID Status Reason Start Date Expiration Date Visits V isits Requested Authorized [id number] Closed Consult, 04/20/2015 04/19/2016 1 [facility] Encounter Details Date Type Department Care Team Description 05/26/2015 Office Visit Pain Management at [facility], Avascular necrosis bilateral knees; Mike Roque MD Alcohol dependence with other alcohol-in duced disorder; [facility] Polysubst ance abuse [facility] [address] [place] [facility] [phone] [place] [address] Social History Tobacco Use Types Packs/Day Years [...] Comment: lately vary rarely, no longer 04/11/2015 Sex Assigned at Date Recorded Not on file documented as of this encounter Last Filed Vital Signs Vital Sign Reading Time Taken Comments Blood Pressure 146/78 05/26/2015 9:10 AM EST Pulse 72 05/26/2015 9:10 AM EST Temperature - - Respiratory Rate - - Oxygen Saturation 99% 05/26/2015 9:10 AM EST Inhaled Oxygen Concentration - - Weight 95.3 kg (210 lb) 05/26/2015 9:10 AM EST Height 175.3 cm (5' 9) 05/26/2015 9:10 AM EST Body Mass Index 31.01 05/26/2015 9:10 AM EST documented in this encounter Progress Notes Jimmy Lopez MD - 05/26/2015 9:39 AM EST I am seeing Mr. Ramos at the request of Dr. Gordon Mallory for assessment of perioperative management plans if he proceeds with a total knee replacement. Thank you so much oGrdon for allowing me to participate in the care of Mr. Mahin Ramos who is a gentleman who I have seen many times over the years and have dealt with on various levels many times over the years. 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 He needs bilateral total knee replacements it sounds like as well. He was very difficult to get a history from today. I asked him what drugs he is taking right now and he really could not tell me. He at one point told me that he was using 50 mg of methadone a day, then he said it was 10 mg of methadone a day. I advised him that I would be getting urine toxicology specimen from him today because we would just really need to determine what he is actually using. He has had multiple admissions to the [facility]. He at one point was on 160 mg of methadone a day. He tells me as I ask him methadone is not the best pain killer. He added I do not know if it will be in my system or not when I talked to him about the urine toxicology specimen. I advised him that prior to surgery it would be useful for him to see an addiction medicine doctor for some advice and I offered to make the appointment for him, but he declined. I advised him that on the basis of the fact that I believe he is currently abusing drugs and obtaining illegal drugs and using them in a way that I really do not understand that his risk from surgery is dramatically increased. He has an increased risk of infection. He has an increased risk of in my opinion based on his uncontrolled and untreated substance disorder. Despite this, I do not think it is unreasonable for Dr. Mallory to proceed if he thinks that he can help Mr. Ramos. Mr. Ramos just needs to understand that he is at increased risk and I have discussed this thoroughly with him today. 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 This is a very high dose and this would be equivalent to approximately 360 mg of morphine per day and I think that increasing the dose to even that high or higher than that would dramatically increase his risk of complications and . After one month, I would decrease the dose to 6 mg every four hours and after one month, I would wean him off of the opioids. I have advised unequivocally today that we would not be managing him opioids long-term. When I returned to discuss the urine toxicology specimen with him again, he had already left without leaving us a specimen. ASSESSMENT: Clear indication for total knee replacement in a patient with ongoing polysubstance abuse. PLAN: I would think that you could proceed, Dr. Mallory, if you felt that the benefits outweigh the risks and I would support your decision in this regard. He has been told that his opioids would be limited and he has been told by me and I know you told him as well that he would have severe pain after this operation that is highly likely we would be unable to control. If he accepts those conditions and understands and if you think that the surgery is in best interest, then I would support whatever decision you make. documented in this encounter Plan of Treatment Upcoming Encounters Date Type Specialty Care Team Description 12/11/2021 Appointment Radiology 12/11/2021 Office Visit Orthopaedics Marion Tavera APRN [facility] DR ORTHOPAEDIC SURG [place], [place] [address] (Wo rk) 01/15/2022 Appointment Radiology Stiven Cervantes MD [facility] Pulmonary Medici [place], [place] [address] (Wo rk) Scheduled Procedures Name Priority Associated Diagnoses Date/Time DEBRIDEMENT SKIN, SUBCU, MUSCLE, R great toe amp utation, wound LOWER EXTREMITY (WRVU 2.7) closure MODIFIER WOUND VAC R great toe amputation, wound closure documented as of this encounter Visit Diagnoses Diagnosis Avascular necrosis bilateral knees Aseptic necrosis of bone, site unspecifi ed Alcohol dependence with other alcohol-in duced disorder Polysubstance abuse Other, mixed, or unspecified nondependen t drug abuse, unspecified documented in this encounter Care Teams Tricot Knitting Machine Operator Relationship Specialty Start Date End Date Azalia Peña APRN PCP - General 11/19/13 03/19/17 documented as of this encounter
--- OUTSIDE RECORDS SUMMARY | 2021-11-30 08:25 | XMS_ITS | Encounter Summary ---
:1955 Author Organization [facility] [place] [address] Care Team Providers Name Role Phone Azalia Peña APRN Primary Care Provider Encounter Details Date Type Department Care Team Description 05/24/2015 Telephone Care Management Mago Reid [facility] [place] [phone] Social History Tobacco Use Types Packs/Day [...] Notes Telephone Encounter - Mago Collazo - 05/24/2015 12:16 PM EST Pt was sent packet of information cc discharge planning post-op from a total joint replacement. Pt was provided with an introductory letter. Pt was provided with information about OCM. Pt was provided with list of VNA and SNF in his area. Pt was encouraged to select the VNA of his choice as well as 3 SNF he would be willing to go to and bring that list in at the time of surgery. Pt was provided with a list of community resources by which additional DME can be obtained. Pt was encouraged to call withany questions. documented in this encounter Plan of Treatment Upcoming Encounters Date Type Specialty Care Team Description 12/11/2021 Appointment Radiology 12/11/2021 Office Visit Orthopaedics Marion Tavera APRN [facility] DR ORTHOPAEDIC SURG [place], [place] [address] (Wo rk) 01/15/2022 Appointment Radiology Stiven Cervantes MD [facility] Pulmonary Medici [place], [place] [address] (Wo rk) Scheduled Procedures Name Priority Associated Diagnoses Date/Time DEBRIDEMENT SKIN, SUBCU, MUSCLE, R great toe amp utation, wound LOWER EXTREMITY (WRVU 2.7) closure MODIFIER WOUND VAC R great toe amputation, wound closure documented as of this encounter Visit Diagnoses Not on filedocumented in this encounter Care Teams Coo Relationship Specialty Start Date End Date Azalia Peña APRN PCP - General 11/19/13 03/19/17 documented as of this encounter
--- OUTSIDE RECORDS SUMMARY | 2021-11-30 08:25 | XMS_ITS | Encounter Summary ---
:1955 Author Organization [facility] [address] Care Team Providers Name Role Phone Azalia Peña APRN Primary Care Provider Encounter Details Date Type Department Care Team Description 10/06/2014 Office Visit Neurology at [facility] Basilio Khanna, Peripheral neuropathy [facility] [place] [address] NEUROLOGY DEPT. [phone] [place], [place] [address] Social History Tobacco Use Types [...] Sign Reading Time Taken Comments Blood Pressure 130/78 10/06/2014 10:29 AM EDT Pulse 70 10/06/2014 10:29 AM EDT Temperature - - Respiratory Rate - - Oxygen Saturation - - Inhaled Oxygen Concentration - - Weight 107.8 kg (237 lb 9.6 oz) 10/06/2014 10:29 AM EDT Height 175.3 cm (5' 9) 10/06/2014 10:29 AM Reported EDT Body Mass Index 35.09 10/06/2014 10:29 AM EDT documented in this encounter Progress Notes Basilio Khanna MD - 10/06/2014 11:37 AM EDT I was asked to see Mahin Ramos at the request of Dr. Monroe for nerve conduction studies for the evaluation of questioned peripheral neuropathy. Mahin is a 59-year-old gentleman who came with his today. I did review Dr. Monroe note, which was very helpful. Both Mahin and his state he has had foot pains for many years. He has also had numbness on the bottom of his feet, although it seems to have slowly increased over time. He feels it can be close to up to the knees. He is not a particularly good historian, however. He mentions some balance issues, although he attributes it mainly to his pain. He denies any numbness or tingling in his hands. He denies any clear weakness, although he is limited due to pain. He also has chronic joint pain and low back pain. He has seen the Pain Clinic here at [facility]. He also has a history of opiate dependence. He was on methadone for many years and now he admits to not using it legally at this point. He, of note, also has a history of two total hip replacements in [address] for avascular necrosis by Dr. Foy. Past Medical History: Chronic low back pain. History of depression. History of hepatitis C. History of pneumonia. History of alcohol and narcotic dependence. Medications 10/06/14 1132 Medication Sig Taking? furosemide (LASIX) 40 mg Tablet Take 1 tablet by mouth daily. Yes gabapentin (NEURONTIN) 600 mg Tablet Take 2 tablets by mouth 3 times daily. Yes acetaminophen (TYLENOL) 500 mg Tablet Take 1,000 mg by mouth 2 times daily. Yes potassium chloride (KLOR-CON) 20 mEq Packet Take 20 mEq by mouth daily. Yes ibuprofen (ADVIL;MOTRIN) 800 mg Tablet Take 800 mg by mouth as needed. Yes DULERA 200-5 mcg/actuation HFA Aerosol Inhaler Inhale 1 puff into the lungs 2 times daily. Yes omeprazole (PRILOSEC) 40 mg Capsule, Delayed Release(E.C.) Take 40 mg by mouth daily. Yes buPROPion (WELLBUTRIN XL) 300 mg 24 hr tablet take 1 tablet by mouth every morning Yes diaZEPam (VALIUM) 5 mg tablet Take 1 tablet by mouth 3 times daily as needed for Anxiety. Yes multivitamin (THERAGRAN) tablet Take 1 tablet by mouth daily. Yes atenolol (TENORMIN) 50 mg tablet Take 1 tablet by mouth 2 times daily. Yes amlodipine (NORVASC) 5 mg tablet Take 1 tablet by mouth daily. Yes No Known Allergies Family History: No history of neuropathy of note. Social History: He lives with his . 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 He smokes about a quarter of a pack per day for about 40 years. He says he still takes methadone, which he gets on his own as above. He does continue to drink alcohol. It was reported that he was drinking about 20 drinks a week, but he says he has cut back. He says he is not drinking every day at this point. Review of Systems: As per history of presenting illness; notable also for leg swelling. He denies any urinary incontinence. In general he appears in no distress. He did come in in a wheelchair because he felt it was difficult to walk due to pain. HEENT: Mucous membranes are moist. Sclerae are anicteric. Oropharynx is clear. Cardiovascular: Heart has a regular rate and rhythm, S1 S2, bilateral peripheral edema noted more in the right lower extremity. Respiratory: Lungs are clear to auscultation bilaterally. Musculoskeletal: See neurological exam. Skin: He does have on the first toenail black discoloration on the left toe, diagnosed as a subungual hemorrhage by Dermatology. Neurological: Mental status: He is alert, oriented, and attentive to questions. Speech is fluent and goal directed, although he does get tangential with his history at times. Cranial nerve testing II through XII is intact including extraocular muscles intact without nystagmus. Motor exam: There is no muscle atrophy or fasciculations. Tone is normal. power in the upper extremities is 5 out of 5. Lower extremities are 5 out of 5 except with hip flexion, knee extension more on the right in the context of pain and some limitation, although full strength was achieved. Reflexes are 2+ throughout except for absent ankle jerks. Toes are downgoing. Coordination: Vrupzd-fy-ejyp-finger slow, but without dysmetria. Rapid alternating movements slow, although no dysdiadochokinesia. Gait: It was very difficult to walk due to pain. His gait was quite antalgic. I did briefly check Romberg, which was notable for some mild sway. Sensory exam is notable for significant vibratory sense loss in the toes, milder at the ankles. He does have impairment of temperature and light touch in the feet bilaterally up to the knees, although it appeared more in the proximal leg on the right. Nerve Conduction Studies: Please see report for complete data. Right sural is absent. Left tibial motor study is absent. Left peroneal is with markedly reduced amplitude and reduced conduction velocity. Left radial sensory study and left ulnar motor studies are normal. Assessment: Mahin Ramos is a 59-year-old gentleman with a clinical picture of bilateral lower extremity pain that fits with a neuropathic component. His exam does suggest generalized peripheral neuropathy and this was confirmed on nerve conduction studies. 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 The etiology of his peripheral neuropathy may be multifactorial. He has a long history of alcohol abuse and that can certainly be the cause. He however, also has hepatitis C and trace Cryoglobulins and his peripheral neuropathy may also be secondary to that. Of note, he is also being evaluated by Rheumatology for questioned Sjogren's due to elevated SSB antibody and as Dr. Monroe mentioned Sjogren's can contribute to peripheral neuropathy. It does not appear clear to me that he has Sjogren's. Recommendations: We discussed the importance of cutting back and discontinuing alcohol with respect to his peripheral neuropathy. That may also help his pain as well. We discussed further blood work. He already has a B12 and TSH pending through Dr. Monroe. Diabetes screening would also be recommended and he can have that through his PCP. He says he has been screened for diabetes and it has been negative of note. We also discussed the other important issue for treatment would be his hepatitis C and that could also help his peripheral neuropathy, particularly if the mild cryoglobulinemia could be improved. We discussed pain management. He will follow up with his PCP. He also has seen the Pain Clinic in the last year. His gabapentin could be increased further. It looks like he is taking 600 mg three times a day. It could be increased to 900 mg three times a day. He can follow up with his PCP. Also, we did discuss possible trial of Cymbalta in the future; however, I would not recommend him to be on Wellbutrin. No further testing recommended from a neurologic standpoint. I would not recommend a sural nerve biopsy based on the likely cause of his neuropathy. Also of note, his sural amplitudes are absent and the yield of a biopsy would be very low in that case. Of note, he also does not have a clinical picture of a mononeuritis multiplex pattern, as well. Of note, he is taking a multivitamin. Daily thiamine tablet could also be considered, as well. He could talk to his PCP and Dr. Monroe. Vitamin B1 level could also be considered and added to his next lab draw with Dr. Monroe as well. documented in this encounter Plan of Treatment Upcoming Encounters Date Type Specialty Care Team Description 12/11/2021 Appointment Radiology 12/11/2021 Office Visit Orthopaedics Marion Tavera APRN [facility] DR ORTHOPAEDIC SURG [place], [place] [address] (Wo rk) 01/15/2022 Appointment Radiology Stiven Cervantes MD [facility] Pulmonary Medici [place], [place] [address] (Wo rk) Scheduled Procedures Name Priority Associated Diagnoses Date/Time DEBRIDEMENT SKIN, SUBCU, MUSCLE, R great toe amp utation, wound LOWER EXTREMITY (WRVU 2.7) closure MODIFIER WOUND VAC R great toe amputation, wound closure documented as of this encounter Visit Diagnoses Diagnosis Peripheral neuropathy Unspecified hereditary and idiopathic pe ripheral neuropathy documented in this encounter Care Teams Marketing Production Manager Relationship Specialty Start Date End Date Azalia Peña APRN PCP - General 11/19/13 03/19/17 documented as of this encounter
--- OUTSIDE RECORDS SUMMARY | 2021-11-30 08:26 | XMS_ITS | Encounter Summary ---
:1955 Author Organization [facility] [place] [address] Care Team Providers Name Role Phone Eli Bergman MD Primary Care Provider Encounter Details Date Type Department Care Team Description 04/05/2013 Telephone Internal Medicine at [facility] Vidhya Puckett, [place] [address] Social History Tobacco Use Types Packs/Day [...] this encounter Miscellaneous Notes Telephone Encounter - Vidhya Puckett RN - 04/05/2013 5:03 PM EST Called Mr Ramos to discuss that I was going to need to cancel EPE Dr Bergman on 04/07 due to certified letter he received on 03/29/13. He stated that was ok ,he was waiting to hear back form potential new PCP this afternoon. documented in this encounter Plan of Treatment Upcoming Encounters Date Type Specialty Care Team Description 12/11/2021 Appointment Radiology 12/11/2021 Office Visit Orthopaedics Marion Tavera APRN [facility] ORTHOPAEDIC SURG [place], [place] [address] (Wo rk) 01/15/2022 Appointment Radiology Stiven Cervantes MD [facility] Pulmonary Medici [place], [place] [address] (Wo rk) Scheduled Procedures Name Priority Associated Diagnoses Date/Time DEBRIDEMENT SKIN, SUBCU, MUSCLE, R great toe amp utation, wound LOWER EXTREMITY (WRVU 2.7) closure MODIFIER WOUND VAC R great toe amputation, wound closure documented as of this encounter Visit Diagnoses Not on filedocumented in this encounter Care Teams Program Management Professional Relationship Specialty Start Date End Date Eli Bergman MD PCP - General 11/21/11 04/20/13 [facility] [place] [address] documented as of this encounter
--- OUTSIDE RECORDS SUMMARY | 2021-11-30 08:26 | XMS_ITS | Encounter Summary ---
:1955 [place] [address] Care Team Providers Name Role Phone Ion Peña APRN Primary Care Provider Reason for Visit Reason Comments Pain Management Back Pain Encounter Details Date Type Department Care Team Description 04/26/2014 Follow-Up Pain Management at Martín Newton APRN Chronic pain [facility] [address] PAIN CLINIC [phone] [place] [address] (Wo rk) Social History Tobacco Use Types [...] Sign Reading Time Taken Comments Blood Pressure 154/100 04/26/2014 3:38 PM EST Pulse 73 04/26/2014 3:38 PM EST Temperature - - Respiratory Rate - - Oxygen Saturation 96% 04/26/2014 3:38 PM EST Inhaled Oxygen Concentration - - Weight 112.9 kg (248 lb 12.8 oz) 04/26/2014 3:38 PM EST Height - - Body Mass Index 36.74 03/31/2014 4:01 PM EST documented in this encounter Progress Notes Martín Obrien, OIL DIPPER - 04/26/2014 3:55 PM EST PAIN CLINIC FOLLOW-UP Mahin Ramos [id number] Reason for follow-up: Medical management Chief Complaint: LBP Identification: Mr. Ramos is a 58 y.o.-year-old male, who has a history of LBP since 1979 and had spine surgery in 1995. History of Present Illness/Interval History Pain Location: LBP, both buttocks, right groin, medial thigh, medial calf, ankle Pain Quality is described as deep into the bone Pain Exacerbating/relieving activities: worse with all activity, better with nothing Rated as 6/10 Depression: yes, has therapist Anxiety: some Sleep: poor Smoking: no Alcohol: one a week Functional Status: gaeds help to care for self and home Recent treatments: Seen by Dr Foy The [place] Prescription Monitoring Program was checked and no issues were found. Chronic Opioid Therapy Pain Management Plan has not been signed UDT: has not been done Review of Systems Constitutional Denies weight loss or gain, fevers, chills, can have nightsweats Cardiovascular Denies chest pain, palpitations. Respiratory Denies cough, SOB, has CUNHA. GI/ Denies constipation, diarrhea, nausea, vomiting, GERD, incontinence Musculoskeletal No weakness, falling once a month Neurologic Denies fainting spells, seizures, memory loss. Has numbness and paresthesia in all toes Physical Exam Blood pressure 154/100, pulse 73, weight 112.855 kg (248 lb 12.8 oz), SpO2 96 %. Constitutional Mahin Ramos is seen today in the company of spouse. Dressed appropriately for the weather with good hygiene. No pain behaviors. No Ishmael signs. Psychiatric He has good eye contact and a full range of affect. Lungs Clear to auscultation Cardiac Reg RR Musculoskeletal Moves easily in the exam room with a non antalgic gait. No ambulatory aids used. Assessment Chronic pain Recommendations/Plan Mahin Ramos and I reviewed his symptoms and care to date. He has been seen by Dr Foy who would like to see him put back on his methadone. Given his red flags documented in the EMR, I will not bedoing this. Have discussed this with Dr Lopez, and he is in agreement. What I did tell him is that I am willing to do anything to help short of methadone or other opioids. We have reviewed his med list and I suggest we up his gabapentin to 600 TID, which would put him at 1800mg a day. He has issues remembering to take his middle dose and with sleep. A suggestion is to take his lunch dose with his evening dose. He is on Wellbutrin. An option is to change him to cymbalta or to add cymbalta. Other options to help with his pain is to get him more active. I have suggested Pool Tx that he can do closer to home. He has an appointment with his PCP and I submit the above suggestions to his PCP for consideration. If the PCP is not comfortable, I would be happy to write for these. I would also be glad to help his PCP so he can keep his care locally rather than make the frequent drives here. . MARTÍN OBRIEN APRN cc: ION PEÑA APRN None documented in this encounter Plan of Treatment Upcoming Encounters Date Type Specialty Care Team Description 12/11/2021 Appointment Radiology 12/11/2021 Office Visit Orthopaedics Marion Tavera APRN [facility] ORTHOPAEDIC SURG [place], [place] [address] (Wo rk) 01/15/2022 Appointment Radiology Stiven Cervantes MD [facility] Pulmonary Medici [place], [place] [address] (Wo rk) Scheduled Procedures Name Priority Associated Diagnoses Date/Time DEBRIDEMENT SKIN, SUBCU, MUSCLE, R great toe amp utation, wound LOWER EXTREMITY (WRVU 2.7) closure MODIFIER WOUND VAC R great toe amputation, wound closure documented as of this encounter Visit Diagnoses Diagnosis Chronic pain Other chronic pain documented in this encounter Care Teams Edging Machine Setter Relationship Specialty Start Date End Date Ion Peña APRN PCP - General 11/19/13 03/19/17 documented as of this encounter
--- OUTSIDE RECORDS SUMMARY | 2021-11-30 08:26 | XMS_ITS | Encounter Summary ---
:1955 Author Organization [facility] [address] Care Team Providers Name Role Phone Ion Peña APRN Primary Care Provider Encounter Details Date Type Department Care Team Description 05/17/2014 Ancillary Appointment [facility] Gus Bonner Jr., [address] [place], [place] [address] [facility] [address] [facility] A [phone] [place], [place] [address] (Wo rk) Social History Tobacco Use Types [...] Marion Tavera APRN [facility] DR ORTHOPAEDIC SURG [place], [place] 0[address] (Wo rk) 01/15/2022 Appointment Radiology Stiven Cervantes MD [facility] Pulmonary Medici [place] [id number] (Wo rk) Scheduled Procedures Name Priority Associated Diagnoses Date/Time DEBRIDEMENT SKIN, SUBCU, MUSCLE, R great toe amp utation, wound LOWER EXTREMITY (WRVU 2.7) closure MODIFIER WOUND VAC R great toe amputation, wound closure documented as of this encounter Procedures Procedure Name Priority Date/Time Associated Diagnosis Comme nts ECHOCARDIOGRAM Routine 05/17/2014 Results for t his SOUTH/EXTERNAL procedure are in the results section. documented in this encounter Results Echocardiogram South/External (05/17/2014) P athologist Signature EF 65% Narrative Gus Bonner Jr., MD - 05/17/2014 Echocardiogram Final Report ??Mahin Ramos ??D.O.B.1955 [place] [address] PCP: ION PEÑA, OPTICIAN APPRENTICE DISPENSING ??Indication : dyspnea Date of Study: 05/17/2014 Procedure: M- Mode, 2D, Doppler, and Col or Flow Doppler Quality: ?? fair, digital study Measurements ?(N = normal) Ascending Aorta: 3.3 (N <3.2), Aortic Ro ot: 3.0 ??(N<3.7), Aortic Cusp:x (N >1.4) Left Atrium: 18 (N<20), Right Atrium:18( N<17 ) LV Septum:1.2 (N <1.1),LV diastolic: 4.3 (N <5.6), LV posterior:1.2(N <1.1),RV: x(N<0.7) Diastolic- E/A :1.5(N > 1.0), DT:186 (N< 240), IVRT: 89 (N <100), E': 11 Left Atrium: normal Mitral Valve: normal, ??trivial regurgit ation Left Ventricle: mild LVH EF 65% ?? diast olic function normal Segments: N-normal, PN- probably normal, H-hypokin etic, SH-severely hypo, A-akinetic Anteroseptal: base- N,mid- N, apex- N Anterior: base- N, mid- N, apex- N Anterolateral:base- N, mid- N, apex- N Posterolateral:base- N, mid-N Inferior: base-N,mid-N, apex-N Inferoseptal: ??Base-N,mid-N Aortic Valve: sclerosis, no stenosis ??N o regurgitation Aorta: normal Right Atrium: normal Tricuspid Valve: normal trivial regurgit ation ??gradient 30mmHg + assumed RA ??5 mmHg=PA 35 ??mmHg Right Ventricle: normal Pulmonic Valve: normal no PI Pericardium: normal comments/summary: ??Mild LVH, normal LV function, trivial MR and TR, mild pulmonary HTN Electronically signed: Gus Bonner Jr, MD [facility] Historical Provider ECHO ORDERABLES documented in this encounter Visit Diagnoses Not on filedocumented in this encounter Care Teams Cost Specialist Relationship Specialty Start Date End Date Ion Peña APRN PCP - General 11/19/13 03/19/17 documented as of this encounter
--- OUTSIDE RECORDS SUMMARY | 2021-11-30 08:26 | XMS_ITS | Encounter Summary ---
:1955 Author Organization [facility] [place] [address] Care Team Providers Name Role Phone Eli Bergman MD Primary Care Provider Encounter Details Date Type Department Care Team Description 01/07/2013 External Results XRay at [facility] Provider, [address] [place] [address] Social History Tobacco Use Types Packs/Day [...] Marion Tavera APRN [facility] ER ORTHOPAEDIC SURG [place], [place] [address] (Wo rk) 01/15/2022 Appointment Radiology Stiven Cervantes MD [facility] er Pulmonary Medici nelly [place], [place] [address] (Wo rk) Scheduled Procedures Name Priority Associated Diagnoses Date/Time DEBRIDEMENT SKIN, SUBCU, MUSCLE, R great toe amp utation, wound LOWER EXTREMITY (WRVU 2.7) closure MODIFIER WOUND VAC R great toe amputation, wound closure documented as of this encounter Procedures Procedure Name Priority Date/Time Associated Diagnosis Comme nts DIAGNOSTIC RADIOLOGY SCAN Routine 12/01/2012 documented in this encounter Results Scan Doc: Diagnostic Radiology (12/01/2012) Anatomical Region Laterality Modality Other Narrative This result has an attachment that is no t available. Scanning Provider MEDIA MGR SCAN EXT ORDR/RSLT documented in this encounter Visit Diagnoses Not on filedocumented in this encounter Care Teams Journalists And Other Writers Relationship Specialty Start Date End Date Eli Bergman MD PCP - General 11/21/11 04/20/[address] [facility] [address] [address] documented as of this encounter
--- OUTSIDE RECORDS SUMMARY | 2021-11-30 08:26 | XMS_ITS | Encounter Summary ---
:1955 Author Organization [facility] [place] [address] Care Team Providers Name Role Phone Eli Bergman MD Primary Care Provider Encounter Details Date Type Department Care Team Description 03/07/2013 Telephone [place] Medicine [place] [facility] [place] Bergman [place] [facility] [place] [phone] GENERAL INTERNAL MEDICINE [phone] [place], [place] [address] (Wo rk) Social History Tobacco [...] this encounter Miscellaneous Notes Telephone Encounter - Eli Bergman - 03/07/2013 7:02 PM EDT Notified by [facility] nurses that Mr. Mahin Ramos would like me to call him. I called him today but he was unavailable. I left a message. documented in this encounter Plan of Treatment Upcoming Encounters Date Type Specialty Care Team Description 12/11/2021 Appointment Radiology 12/11/2021 Office Visit Orthopaedics Marion Tavera APRN [facility] ORTHOPAEDIC SURG [place], [place] [address] (Wo rk) 01/15/2022 Appointment Radiology Stiven Cervantes MD [facility] Pulmonary Medici [place], [place] [address] (Wo rk) Scheduled Procedures Name Priority Associated Diagnoses Date/Time DEBRIDEMENT SKIN, SUBCU, MUSCLE, R great toe amp utation, wound LOWER EXTREMITY (WRVU 2.7) closure MODIFIER WOUND VAC R great toe amputation, wound closure documented as of this encounter Visit Diagnoses Not on filedocumented in this encounter Care Teams Power Barker Relationship Specialty Start Date End Date Eli Bergman MD PCP - General 11/21/11 04/20/13 [facility] [place] [address] documented as of this encounter
--- OUTSIDE RECORDS SUMMARY | 2021-11-30 08:26 | XMS_ITS | Encounter Summary ---
:1955 Author Organization [facility] [place] [address] Care Team Providers Name Role Phone Unknown Primary Care Provider Unavailable Reason for Visit Reason Comments Medication Refill Encounter Details Date Type Department Care Team Description 04/13/2013 Refill Internal Medicine at [facility] Eli Bergman MD [facility] [place] [address] GENERAL INTERNAL MEDICINE [phone] [place], [place] [address] (Wo rk) Social History Tobacco [...] Marion Tavera APRN [facility] DR ORTHOPAEDIC SURG [place], [place] [address] (Wo rk) 01/15/2022 Appointment Radiology Stiven Cervantes MD [facility] Pulmonary Medici [place], [place] [address] (Wo rk) Scheduled Procedures Name Priority Associated Diagnoses Date/Time DEBRIDEMENT SKIN, SUBCU, MUSCLE, R great toe amp utation, wound LOWER EXTREMITY (WRVU 2.7) closure MODIFIER WOUND VAC R great toe amputation, wound closure documented as of this encounter Visit Diagnoses Not on filedocumented in this encounter Care Teams Restorer Lace And Textiles Relationship Specialty Start Date End Date Unknown PCP - General 04/21/13 11/18/13 None documented as of this encounter
--- OUTSIDE RECORDS SUMMARY | 2021-11-30 08:26 | XMS_ITS | Encounter Summary ---
:1955 [place] [address] Care Team Providers Name Role Phone Brian Fall APRN Primary Care Provider Reason for Visit Reason Comments Medication Refill Encounter Details Date Type Department Care Team Description 06/08/2013 Refill [place] [facility] [place] Bergman MD [facility] [place] [address] GENERAL INTERNAL MEDICINE [phone] [place], [place] [address] (Wo rk) Social History Tobacco [...] Visit Orthopaedics Marion Tavera APRN [facility] DR ORTHOPAEDIC SURG [place], [place] [address] (Wo rk) 01/15/2022 Appointment Radiology Stiven Cervantes MD [facility] er Pulmonary [place], [place] [address] (Wo rk) Scheduled Procedures Name [...] documented as of this encounter Care Teams Algologist Relationship Specialty Start Date End Date Brian Fall APRN PCP - General Internal Medicine 04/07/[address] [place] [phone] documented as of this encounter
--- OUTSIDE RECORDS SUMMARY | 2021-11-30 08:26 | XMS_ITS | Encounter Summary ---
:1955 Author Organization [facility] [place] [address] Care Team Providers Name Role Phone Unknown Primary Care Provider Unavailable Encounter Details Date Type Department Care Team Description 03/02/2013 Telephone Internal Medicine at [facility] Cari Barclay, [place] [address] Social History Tobacco Use Types Packs/Day [...] this encounter Miscellaneous Notes Telephone Encounter - Cari Barclay, RN - 03/02/2013 1:35 PM EDT Called patient to tell him per Dr. Bergman that he is to come in for a urine drug screen and then will be able to rock picker scripts from Dr. Finney. Straight cath is to be done if necessary. Dr. Finney will be holding on to scripts until the urine screen is done. Patient verbalized understanding and will come in today or tomorrow to perform the urine screen. Orders are in the system to be done. documented in this encounter Plan of Treatment Upcoming Encounters Date Type Specialty Care Team Description 12/11/2021 Appointment Radiology 12/11/2021 Office Visit Orthopaedics Marion Tavera APRN [facility] ORTHOPAEDIC SURG [place], [place] [address] (Wo rk) 01/15/2022 Appointment Radiology Stiven Cervantes MD [facility] Pulmonary Medici [place], [place] [address] (Wo rk) Scheduled Procedures Name Priority Associated Diagnoses Date/Time DEBRIDEMENT SKIN, SUBCU, MUSCLE, R great toe amp utation, wound LOWER EXTREMITY (WRVU 2.7) closure MODIFIER WOUND VAC R great toe amputation, wound closure documented as of this encounter Visit Diagnoses Not on filedocumented in this encounter Care Teams Nail Maker Relationship Specialty Start Date End Date Unknown PCP - General 04/21/13 11/18/13 None documented as of this encounter
--- OUTSIDE RECORDS SUMMARY | 2021-11-30 08:26 | XMS_ITS | Encounter Summary ---
:1955 [place] [address] Care Team Providers Name Role Phone Brian Fall APRN Primary Care Provider Reason for Visit Reason Comments Medication Refill Encounter Details Date Type Department Care Team Description 05/19/2013 Refill Internal Medicine at [facility] Raiza Angelo MD [facility] [place] [address] GENERAL INTERNAL MEDICINE [phone] [place], [place] [address] (Wo rk) Social History Tobacco [...] Marion Tavera APRN [facility] DR ORTHOPAEDIC SURG [place], [place] [address] (Wo rk) 01/15/2022 Appointment Radiology Stiven Cervantes MD [facility] er Pulmonary Tim [place], [place] [address] (Wo rk) Scheduled Procedures Name [...] documented as of this encounter Care Teams Billiard Table Mechanic Relationship Specialty Start Date End Date Brian Fall APRN PCP - General Internal Medicine 04/07/[address] [place] [phone] documented as of this encounter
--- OUTSIDE RECORDS SUMMARY | 2021-11-30 08:26 | XMS_ITS | Encounter Summary ---
:1955 Author Organization [facility] [place] [address] Care Team Providers Name Role Phone Biran Fall APRN Primary Care Provider Reason for Visit Reason Comments Medication Refill Encounter Details Date Type Department Care Team Description 04/13/2013 Refill Psychiatry and Behavioral Sen Gomes MD [facility] Jenni hammer [place] [address] [place] [address] [phone] (Wo rk) Social History Tobacco Use Types [...] Visit Orthopaedics Marion Tavera APRN [facility] DR ORTHOPAEDIC SURG [place], [place] [address] (Wo rk) 01/15/2022 Appointment Radiology Atkins, Stiven T , MD [facility] Pulmonary Tim [place], [place] [address] (Wo rk) Scheduled Procedures Name [...] documented as of this encounter Care Teams Director Workforce Management Relationship Specialty Start Date End Date Brian Fall APRN PCP - General Internal Medicine 04/07/[address] [place] [phone] documented as of this encounter
--- OUTSIDE RECORDS SUMMARY | 2021-11-30 08:26 | XMS_ITS | Encounter Summary ---
:1955 Author Organization [facility] [place] [address] Care Team Providers Name Role Phone Eli Bergman MD Primary Care Provider Encounter Details Date Type Department Care Team Description 01/27/2013 Notes Only Internal Medicine at [facility] Vidhya Puckett, [place] [address] Social History Tobacco Use Types Packs/Day [...] documented as of this encounter Progress Notes Vidhya Puckett, RN - 01/27/2013 7:15 AM EDT Refill Due 02/03 Written on 01/27 Mail on 01/28 Next refill due 03/03 Generate on 02/22 Ritalin 20mg 4 x day 28 days # 112 Methadone 10 mg tabs #224 q14 days Refill Due 02/03 every 2 weeks Written on 01/27 Mail 01/28 Refill Due next 02/17 Generate on 02/08 Ioanae Moise [place] documented in this encounter Plan of Treatment Upcoming Encounters Date Type Specialty Care Team Description 12/11/2021 Appointment Radiology 12/11/2021 Office Visit Orthopaedics Marion Tavera APRN [facility] ORTHOPAEDIC SURG [place], [place] [address] (Wo rk) 01/15/2022 Appointment Radiology Stiven Cervantes MD [facility] Pulmonary Medici [place], [place] [address] (Wo rk) Scheduled Procedures Name Priority Associated Diagnoses Date/Time DEBRIDEMENT SKIN, SUBCU, MUSCLE, R great toe amp utation, wound LOWER EXTREMITY (WRVU 2.7) closure MODIFIER WOUND VAC R great toe amputation, wound closure documented as of this encounter Visit Diagnoses Not on filedocumented in this encounter Care Teams Leaf Blender Relationship Specialty Start Date End Date Eli Bergman MD PCP - General 11/21/11 04/20/13 [facility] GENERAL [place] [address] documented as of this encounter
--- OUTSIDE RECORDS SUMMARY | 2021-11-30 08:26 | XMS_ITS | Encounter Summary ---
:1955 Author Organization [facility] Address [facility] [place] [address] Care Team Providers Name Role Phone Eli Bergman MD Primary Care Provider Encounter Details Date Type Department Care Team Description 03/02/2013 Orders Only Internal Medicine at [facility] [place] Eason MD Pain (Primary Dx); [address] Chronic narcotic dependence [facility] [place] [address] [place], [place] [phone] (Wo rk) [phone] Social History Tobacco Use Types Packs/Day Years [...] Marion Tavera APRN [facility] ORTHOPAEDIC SURG [place], [place] [address] (Wo rk) 01/15/2022 Appointment Radiology Stiven Cervantes MD [facility] Pulmonary Medici [place], [place] [address] (Wo rk) Scheduled Procedures Name Priority Associated Diagnoses Date/Time DEBRIDEMENT SKIN, SUBCU, MUSCLE, R great toe amp utation, wound LOWER EXTREMITY (WRVU 2.7) closure MODIFIER WOUND VAC R great toe amputation, wound closure documented as of this encounter Visit Diagnoses Diagnosis Pain - Primary Generalized pain Chronic narcotic dependence Unspecified drug dependence, continuous documented in this encounter Care Teams Acquisition Manager Relationship Specialty Start Date End Date Eli Bergman MD PCP - General 11/21/11 04/20/13 [facility] GENERAL [place] [address] documented as of this encounter
--- OUTSIDE RECORDS SUMMARY | 2021-11-30 08:26 | XMS_ITS | Encounter Summary ---
:1955 Author Organization [facility] [place] [address] Care Team Providers Name Role Phone Eli Bergman MD Primary Care Provider Reason for Visit Reason Onset Date Comments Medication Refill 01/27/2013 Encounter Details Date Type Department Care Team Description 01/27/2013 Refill Internal Medicine at [facility] Vidhya Puckett, [place] [address] Social History Tobacco Use Types Packs/Day [...] Office Visit Orthopaedics Marion Tavera APRN [facility] ORTHOPAEDIC SURG [place], [place] [address] (Wo rk) 01/15/2022 Appointment Radiology Stiven Cervantes MD [facility] Pulmonary Medici nelly [place], [place] [address] (Wo rk) Scheduled Procedures Name Priority Associated Diagnoses Date/Time DEBRIDEMENT SKIN, SUBCU, MUSCLE, R great toe amp utation, wound LOWER EXTREMITY (WRVU 2.7) closure MODIFIER WOUND VAC R great toe amputation, wound closure documented as of this encounter Visit Diagnoses Not on filedocumented in this encounter Care Teams Retail Service Technician Relationship Specialty Start Date End Date Eli Bergman MD PCP - General 11/21/11 04/20/13 [facility] GENERAL [place] [address] documented as of this encounter
--- OUTSIDE RECORDS SUMMARY | 2021-11-30 08:26 | XMS_ITS | Encounter Summary ---
:1955 Author Organization [facility] [place] [address] Care Team Providers Name Role Phone Eli Bergman MD Primary Care Provider Reason for Visit Reason Onset Date Comments Medication Refill 02/18/2013 Encounter Details Date Type Department Care Team Description 02/18/2013 Refill Internal Medicine at [facility] Vidhya Puckett RN Pain (Primary Dx) [place] [address] Social History Tobacco Use Types Packs/Day [...] Tavera APRN [facility] DR ORTHOPAEDIC SURG [place], [place] [address] (Wo rk) 01/15/2022 Appointment Radiology Stiven Cervantes MD [facility] Pulmonary Medici nelly [place], [place] [address] (Wo rk) Scheduled Procedures Name Priority Associated Diagnoses Date/Time DEBRIDEMENT SKIN, SUBCU, MUSCLE, R great toe amp utation, wound LOWER EXTREMITY (WRVU 2.7) closure MODIFIER WOUND VAC R great toe amputation, wound closure documented as of this encounter Visit Diagnoses Diagnosis Pain - Primary Generalized pain documented in this encounter Care Teams Hand Edger Relationship Specialty Start Date End Date Eli Bergman MD PCP - General 11/21/11 04/20/13 [facility] [place] [address] documented as of this encounter
--- OUTSIDE RECORDS SUMMARY | 2021-11-30 08:26 | XMS_ITS | Encounter Summary ---
:1955 Author Organization [facility] [place] [address] Care Team Providers Name Role Phone Eli Bergman MD Primary Care Provider Reason for Visit Reason Onset Date Comments Patient Not Seen 03/16/2013 Encounter Details Date Type Department Care Team Description 03/16/2013 Office Visit Psychiatry and Sen Gomes MD PATIENT NOT SEEN Behavioral Health at [facility] ( Primary Dx) [facility] PSYCHIATRY DE PT [address] [phone] (Work) [phone] Social History Tobacco Use Types Packs/Day Years [...] documented as of this encounter Progress Notes Mahin Lowry MD - 03/16/2013 3:07 PM EST Patient not seen Sen Gomes MD - 03/16/2013 12:29 PM EST This patient was not seen in this encounter. documented in this encounter Plan of Treatment Upcoming Encounters Date Type Specialty Care Team Description 12/11/2021 Appointment Radiology 12/11/2021 Office Visit Orthopaedics Marion Tavera APRN [facility] DR ORTHOPAEDIC SURG [place], [place] [address] (Wo rk) 01/15/2022 Appointment Radiology Stiven Cervantes MD [facility] Pulmonary Medici [place], [place] [address] (Wo rk) Scheduled Procedures Name Priority Associated Diagnoses Date/Time DEBRIDEMENT SKIN, SUBCU, MUSCLE, R great toe amp utation, wound LOWER EXTREMITY (WRVU 2.7) closure MODIFIER WOUND VAC R great toe amputation, wound closure documented as of this encounter Visit Diagnoses Diagnosis PATIENT NOT SEEN - Primary documented in this encounter Care Teams Dental Chair Assembler Relationship Specialty Start Date End Date Eli Bergman MD PCP - General 11/21/11 04/20/13 [facility] [place] [address] documented as of this encounter
--- OUTSIDE RECORDS SUMMARY | 2021-11-30 08:26 | XMS_ITS | Encounter Summary ---
:1955 Author Organization [facility] [place] [address] Care Team Providers Name Role Phone Eli Bergman MD Primary Care Provider Reason for Visit Reason Onset Date Comments Medication Refill 01/13/2013 Encounter Details Date Type Department Care Team Description 01/13/2013 Refill [place] Medicine [place] [facility] Vidhya Puckett RN Pain (Primary Dx) [place] [address] Social History Tobacco Use Types Packs/Day [...] [facility] DR ORTHOPAEDIC SURG [place], [place] [address] (Wo rk) 01/15/2022 Appointment Radiology Stiven Cervantes MD [facility] Pulmonary Medici nelly [place], [place] [address] (Wo rk) Scheduled Procedures Name Priority Associated Diagnoses Date/Time DEBRIDEMENT SKIN, SUBCU, MUSCLE, R great toe amp utation, wound LOWER EXTREMITY (WRVU 2.7) closure MODIFIER WOUND VAC R great toe amputation, wound closure documented as of this encounter Visit Diagnoses Diagnosis Pain - Primary Generalized pain documented in this encounter Care Teams Area Plant Manager Relationship Specialty Start Date End Date Eli Bergman MD PCP - General 11/21/11 04/20/[address] [facility] GENERAL [place] [address] documented as of this encounter
--- OUTSIDE RECORDS SUMMARY | 2021-11-30 08:26 | XMS_ITS | Encounter Summary ---
:1955 Author Organization [facility] [place] [address] Care Team Providers Name Role Phone Eli Bergman MD Primary Care Provider Encounter Details Date Type Department Care Team Description 02/05/2013 Telephone Internal Medicine at [facility] Eli Bergman MD [facility] [place] [address] GENERAL INTERNAL MEDICINE [phone] [place], [place] [address] (Wo rk) Social History Tobacco [...] Notes Telephone Encounter - Eli Bergman - 02/05/2013 4:34 PM EDT Called patient again to follow-up as he had called the clinic requesting to speak with me. Unable toreach patient but did leave a message with contact #. documented in this encounter Plan of Treatment Upcoming Encounters Date Type Specialty Care Team Description 12/11/2021 Appointment Radiology 12/11/2021 Office Visit Orthopaedics Marion Tavera APRN [facility] ORTHOPAEDIC SURG [place], [place] [address] (Wo rk) 01/15/2022 Appointment Radiology Stiven Cervantes MD [facility] Pulmonary Medici [place], [place] [address] (Wo rk) Scheduled Procedures Name Priority Associated Diagnoses Date/Time DEBRIDEMENT SKIN, SUBCU, MUSCLE, R great toe amp utation, wound LOWER EXTREMITY (WRVU 2.7) closure MODIFIER WOUND VAC R great toe amputation, wound closure documented as of this encounter Visit Diagnoses Not on filedocumented in this encounter Care Teams Concrete Stone Finisher Relationship Specialty Start Date End Date Eli Bergman MD PCP - General 11/21/11 04/20/13 [facility] GENERAL [place] [address] documented as of this encounter
--- OUTSIDE RECORDS SUMMARY | 2021-11-30 08:26 | XMS_ITS | Encounter Summary ---
:1955 Author Organization [facility] [place] [address] Care Team Providers Name Role Phone Eli Bergman MD Primary Care Provider Encounter Details Date Type Department Care Team Description 02/09/2013 Orders Only Internal Medicine at [facility], Farhana Renteria risk medication [facility] RN use (Primary Dx) [place] [address] Social History Tobacco Use Types Packs/Day [...] 12/11/2021 Office Visit Orthopaedics Marion Tavera APRN [facility] ER ORTHOPAEDIC SURG [place], [place] [address] (Wo rk) 01/15/2022 Appointment Radiology Stiven Cervantes MD [facility] er Pulmonary Medici nelly [place], [place] [address] (Wo rk) Scheduled Procedures Name Priority Associated Diagnoses Date/Time DEBRIDEMENT SKIN, SUBCU, MUSCLE, R great toe amp utation, wound LOWER EXTREMITY (WRVU 2.7) closure MODIFIER WOUND VAC R great toe amputation, wound closure documented as of this encounter Visit Diagnoses Diagnosis High risk medication use - Primary Encounter for long-term (current) use of other medications documented in this encounter Care Teams Vp Security Relationship Specialty Start Date End Date Eli Bergman MD PCP - General 11/21/11 04/20/13 [facility] GENERAL [place] [address] documented as of this encounter
--- OUTSIDE RECORDS SUMMARY | 2021-11-30 08:26 | XMS_ITS | Encounter Summary ---
:1955 Author Organization [facility] [place] [address] Care Team Providers Name Role Phone Eli Bergman MD Primary Care Provider Reason for Visit Reason Onset Date Comments Other 03/26/2013 Encounter Details Date Type Department Care Team Description 03/26/2013 Telephone Internal Medicine [place] [facility]cl[facility] [place] [address] Social History Tobacco Use Types Packs/Day [...] encounter Miscellaneous Notes Telephone Encounter - Cari Barclay RN - 03/26/2013 3:49 PM EST Patient called wanting to speak with Dr. Bergman. He feels that the his contract was not broken at all and that the physician needs to read this again. He was sure that the methadone would be out of hissystem in a quick amount of time and that is why the tox screen was negative. documented in this encounter Plan of Treatment Upcoming Encounters Date Type Specialty Care Team Description 12/11/2021 Appointment Radiology 12/11/2021 Office Visit Orthopaedics Marion Tavera APRN [facility] ORTHOPAEDIC SURG [place], [place] [address] (Wo rk) 01/15/2022 Appointment Radiology Stiven Cervantes MD [facility] Pulmonary Medici [place], [place] [address] (Wo rk) Scheduled Procedures Name Priority Associated Diagnoses Date/Time DEBRIDEMENT SKIN, SUBCU, MUSCLE, R great toe amp utation, wound LOWER EXTREMITY (WRVU 2.7) closure MODIFIER WOUND VAC R great toe amputation, wound closure documented as of this encounter Visit Diagnoses Not on filedocumented in this encounter Care Teams Campus Aide Relationship Specialty Start Date End Date Eli Bergman MD PCP - General 11/21/11 04/20/[address] [facility] [place] [address] documented as of this encounter
--- OUTSIDE RECORDS SUMMARY | 2021-11-30 08:26 | XMS_ITS | Encounter Summary ---
:1955 Author Organization [facility] [place] [address] Care Team Providers Name Role Phone Eli Bergman MD Primary Care Provider Reason for Visit Reason Onset Date Comments Medication Refill 01/27/2013 Encounter Details Date Type Department Care Team Description 01/27/2013 Refill Internal Medicine at [facility] Vidhya Puckett RN Pain (Primary Dx) [place] [address] Social History Tobacco Use Types Packs/Day [...] [facility] DR ORTHOPAEDIC SURG [place], [place] [address] (Wo rk) 01/15/2022 Appointment Radiology Stiven Cervantes MD [facility] Pulmonary Medici nelly [place], [place] [address] (Wo rk) Scheduled Procedures Name Priority Associated Diagnoses Date/Time DEBRIDEMENT SKIN, SUBCU, MUSCLE, R great toe amp utation, wound LOWER EXTREMITY (WRVU 2.7) closure MODIFIER WOUND VAC R great toe amputation, wound closure documented as of this encounter Visit Diagnoses Diagnosis Pain - Primary Generalized pain documented in this encounter Care Teams Supervisor Payroll Relationship Specialty Start Date End Date Eli Bergman MD PCP - General 11/21/11 04/20/13 [facility] [place] [address] documented as of this encounter
--- OUTSIDE RECORDS SUMMARY | 2021-11-30 08:26 | XMS_ITS | Encounter Summary ---
:1955 Author Organization [facility] [place] [address] Care Team Providers Name Role Phone Eli Bergman MD Primary Care Provider Encounter Details Date Type Department Care Team Description 03/26/2013 Orders Only Internal Medicine at [facility] [place] [address] Social History Tobacco Use Types Packs/Day [...] Tavera APRN [facility] ER ORTHOPAEDIC SURG [place], [place] [address] (Jorge rk) 01/15/2022 Appointment Radiology Stiven Cervantes MD [facility] Pulmonary Medici nelly [place], [place] [address] (Wo rk) Scheduled Procedures Name Priority Associated Diagnoses Date/Time DEBRIDEMENT SKIN, SUBCU, MUSCLE, R great toe amp utation, wound LOWER EXTREMITY (WRVU 2.7) closure MODIFIER WOUND VAC R great toe amputation, wound closure documented as of this encounter Visit Diagnoses Not on filedocumented in this encounter Care Teams Forest Firefighter Relationship Specialty Start Date End Date Eli Bergman MD PCP - General 11/21/11 04/20/13 [facility] [address] [place] [address] documented as of this encounter
--- OUTSIDE RECORDS SUMMARY | 2021-11-30 08:26 | XMS_ITS | Encounter Summary ---
:1955 [place] [address] Care Team Providers Name Role Phone Brian Fall APRN Primary Care Provider Reason for Visit Reason Comments Medication Refill Encounter Details Date Type Department Care Team Description 05/18/2013 Refill Internal Medicine at [facility] Raiza Angelo MD [facility] [place] [address] GENERAL INTERNAL MEDICINE [phone] [place], [place] [address] (Wo rk) Social History Tobacco [...] Visit Orthopaedics Marion Tavera APRN [facility] DR ORTHOPAEDIC SURG [place], [place] [address] (Wo rk) 01/15/2022 Appointment Radiology Stiven Cervantes MD [facility] er Pulmonary Tim [place], [place] [address] (Wo rk) Scheduled Procedures Name [...] documented as of this encounter Care Teams Yarn Spooler Relationship Specialty Start Date End Date Brian Fall APRN PCP - General Internal Medicine 04/07/[address] [place] [phone] documented as of this encounter
--- OUTSIDE RECORDS SUMMARY | 2021-11-30 08:26 | XMS_ITS | Encounter Summary ---
:1955 Author Organization [facility] [place] [address] Care Team Providers Name Role Phone Azalia Peña APRN Primary Care Provider Reason for Visit Reason Onset Date Comments Questions 04/27/2014 Encounter Details Date Type Department Care Team Description 04/27/2014 Telephone Orthopaedics [place] [facility] Braxton Arias MD Questions [facility] [place] [address] ORTHOPAEDIC SURGERY [phone] [place], [place] [address] (Wo rk) Social History Tobacco [...] this encounter Miscellaneous Notes Telephone Encounter - Angelica Beard - 04/27/2014 1:38 PM EST Who is calling: PATIENT Was this a new injury? N/A Have you had Surgery?YES If so when? Who was the Surgeon?HUGO What is the question: PATIENT HAS A FEW PERSONAL QUESTIONS FOR DR ARIAS THAT THEY HAVE BEEN DISCUSSING. (PATIENT WOULD NOT GIVE ME ANY INFORMATION) Best number to reach the caller: [phone] documented in this encounter Plan of Treatment Upcoming Encounters Date Type Specialty Care Team Description 12/11/2021 Appointment Radiology 12/11/2021 Office Visit Orthopaedics Marion Tavera APRN [facility] DR ORTHOPAEDIC SURG [place], [place] [address] (Wo rk) 01/15/2022 Appointment Radiology Stiven Cervantes MD [facility] Pulmonary Medici [place], [place] [address] (Wo rk) Scheduled Procedures Name Priority Associated Diagnoses Date/Time DEBRIDEMENT SKIN, SUBCU, MUSCLE, R great toe amp utation, wound LOWER EXTREMITY (WRVU 2.7) closure MODIFIER WOUND VAC R great toe amputation, wound closure documented as of this encounter Visit Diagnoses Not on filedocumented in this encounter Care Teams Stove Mechanic Relationship Specialty Start Date End Date Azalia Peña APRN PCP - General 11/19/13 03/19/17 documented as of this encounter
--- OUTSIDE RECORDS SUMMARY | 2021-11-30 08:26 | XMS_ITS | Encounter Summary ---
:1955 [place] [address] Care Team Providers Name Role Phone Eli Bergman MD Primary Care Provider Reason for Visit Reason Comments Medication Refill Encounter Details Date Type Department Care Team Description 03/31/2013 Refill Internal Medicine at [facility] Eli Bergman MD [facility] [place] [address] GENERAL INTERNAL MEDICINE [phone] [place], [place] [address] (Wo rk) Social History Tobacco [...] [facility] DR ORTHOPAEDIC SURG [place], [place] [address] (Wo rk) 01/15/2022 Appointment Radiology Stiven Cervantes MD [facility] Pulmonary Medici [place], [place] [address] (Wo rk) Scheduled Procedures Name Priority Associated Diagnoses Date/Time DEBRIDEMENT SKIN, SUBCU, MUSCLE, R great toe amp utation, wound LOWER EXTREMITY (WRVU 2.7) closure MODIFIER WOUND VAC R great toe amputation, wound closure documented as of this encounter Visit Diagnoses Not on filedocumented in this encounter Care Teams Lime Sludge Mixer Relationship Specialty Start Date End Date Eli Bergman MD PCP - General 11/21/11 04/20/13 [facility] GENERAL [place] [address] documented as of this encounter
--- OUTSIDE RECORDS SUMMARY | 2021-11-30 08:26 | XMS_ITS | Encounter Summary ---
:1955 Author Organization [facility] Address [facility] [place] [address] Care Team Providers Name Role Phone Unknown Primary Care Provider Unavailable Reason for Visit Reason Comments Medication Refill Encounter Details Date Type Department Care Team Description 10/01/2013 Refill Psychiatry and Behavioral Sen Gomes MD [facility] Jenni hammer [place] [address] [place] [address] [phone] (Wo rk) Social History Tobacco Use Types [...] [facility] DR ORTHOPAEDIC SURG [place], [place] [address] (Wo rk) 01/15/2022 Appointment Radiology Stiven Cervantes MD [facility] Pulmonary Medici [place], [place] [address] (Wo rk) Scheduled Procedures Name Priority Associated Diagnoses Date/Time DEBRIDEMENT SKIN, SUBCU, MUSCLE, R great toe amp utation, wound LOWER EXTREMITY (WRVU 2.7) closure MODIFIER WOUND VAC R great toe amputation, wound closure documented as of this encounter Visit Diagnoses Not on filedocumented in this encounter Care Teams Welding Machine Operator Friction Relationship Specialty Start Date End Date Unknown PCP - General 04/21/13 11/18/13 None documented as of this encounter
--- OUTSIDE RECORDS SUMMARY | 2021-11-30 08:26 | XMS_ITS | Encounter Summary ---
:1955 Author Organization [facility] Address [facility] [place] [address] Care Team Providers Name Role Phone Azalia Peña APRN Primary Care Provider Reason for Visit Reason Comments Hepatitis C Encounter Details Date Type Department Care Team Description 06/09/2014 [place] [facility] Caitlin Dowling, Chronic hepatitis C; [facility] Jenni hammer APRN Cirrhosis of liver without ascites, unsp [place] [address] [facility] [phone] CENTER GASTROENTEROLOGY DEPT. [place], [place] [address] Social History Tobacco Use Types [...] Sign Reading Time Taken Comments Blood Pressure 126/72 06/09/2014 4:28 PM EST Pulse 89 06/09/2014 4:28 PM EST Temperature - - Respiratory Rate - - Oxygen Saturation - - Inhaled Oxygen Concentration - - Weight 111.1 kg (245 lb) 06/09/2014 4:28 PM EST Height 175.3 cm (5' 9) 06/09/2014 4:28 PM EST Body Mass Index 36.18 06/09/2014 4:28 PM EST documented in this encounter Progress Notes Caitlin Dowling, IN HOME CAREGIVER - 06/09/2014 4:23 PM EST Subjective: Patient ID: Mahin Ramos is a 58 y.o. male. HPI Current problem list: 1. Chronic hepatitis C w/early cirrhosis; viral load (02/16) 234,000 IU/ml; genotype:2b -unclear when acquired -viral relapse after 48 weeks of treatment with peg and ribavirin -Liver biopsy- (07/18): ---Pathologic Diagnosis--- Liver, needle biopsy specimen showing changes consistent with chronic hepatitis C, stage 3-4/4, grade 2/4 (mild activity); and concomitant severe alcoholic/nonalcoholic steatohepatitis/steatofibrosis. 2. Alcoholism- stopped drinking (01/18) 3. Depression and adult attention deficit disorder- seeing Dr. Thornton monthly. 4. Status post bilateral hip replacements secondary to avascular necrosis. 5. Chronic back pain with history of surgery for herniated disk- on methadone. 6. Hypertension. 7. Gastroesophageal reflux disease. 8. 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 imaging: CT (06/2009) Lung changes consistent with emphysema. No other diagnostic abnormality in the abdomen. -AFP: (10/19) 5 Portal Hypertension surveillance: EGD: (05/2009) no EV or PHG Viral Load: Pretreatment (08/11/2009) 1,294,013 IU; wk 6 (10/12)= <43 IU (not detected); wk 9 (10/30) < 43 but detected : (12/11/09) <43 -: wk 24 (02/14/2010) <43 +; (02/27/10) < 43 -: (04/16/2010) < 43 - INTERVAL HISTORY: Mr. Ramos Is a 58 year old male who completed 48 weeks of Peg iNterferon and Ribavirin therapy and had a viral relapse when treament was discontinued. He became undetectable at week 6, but then had a one time detectable viral load at week 9. He returns today and feels unwell, he is quite depressed and is tearful through out our visit. He has started drinking again, he reports being in pain as he was cut off from his pain medicaitons for violating his narcotic contract. He has been struggling since and is getting some methadone off the street. OUTSIDE STUDIES: 05/04/14 abdominal ultrasound Diffusely increased echogenicity of the liver No liver masses 05/09/2014 Creat 1.5, na 131, k 3 HCV RNA 3,230,000 iu 05/17/2014 K 5.4 Review of Systems Constitutional: Negative for fever. + fatigue Respiratory: Negative for cough and shortness of breath. Cardiovascular: Negative for chest pain. Gastrointestinal: Negative for nausea, vomiting and abdominal pain. + diarrhea, no blood, not black Objective: Physical Exam Constitutional: He appears well-developed and well-nourished. Head: Normocephalic and atraumatic. Eyes: No scleral icterus. Skin: Skin is warm and dry. Psychiatric: he is tearful and depressed Assessment and Plan: Mr. Ramos is a 58 year old male with Hepatitis C who had viral relapse after his last peg interferonand ribavirin therapy. He returns today and is struggling with substance abuse issues. He has chronic pain and this complicates his clinical scenario. 1. Hepatitis C genotype 2 with viral relapse post Interferon and Ribavirin therapy. We discussed hisretreatment options today and they include treating with sofosbuvir and ribavirin or potentially enrolling in a clinical trial. 2. Cirrhosis, will schedule surveillance abdominal ultrasound again in six months. 3. Substance and alcohol abuse, this was the bulk of the visit was related to discussing this issue.He was encouraged to call [facility] to get into rehab as I think he needs more help with this issue currently. He denies being suicidal but he is quite depressed. Will plan to see him back in six months for ongoing follow up. documented in this encounter Plan of Treatment Upcoming Encounters Date Type Specialty Care Team Description 12/11/2021 Appointment Radiology 12/11/2021 Office Visit Orthopaedics Marion Tavera APRN [facility] ER ORTHOPAEDIC SURG [place], [place] [address] (Wo rk) 01/15/2022 Appointment Radiology Stiven Cervantes MD [facility] Pulmonary Medici [place], [place] [address] (Wo rk) Scheduled Procedures Name Priority Associated Diagnoses Date/Time DEBRIDEMENT SKIN, SUBCU, MUSCLE, R great toe amp utation, wound LOWER EXTREMITY (WRVU 2.7) closure MODIFIER WOUND VAC R great toe amputation, wound closure documented as of this encounter Visit Diagnoses Diagnosis Chronic hepatitis C Chronic hepatitis C without mention of h epatic coma Cirrhosis of liver without ascites, unsp ecified hepatic cirrhosis type documented in this encounter Care Teams Advance Agent Relationship Specialty Start Date End Date Azalia Peña APRN PCP - General 11/19/13 03/19/17 documented as of this encounter
--- OUTSIDE RECORDS SUMMARY | 2021-11-30 08:26 | XMS_ITS | Encounter Summary ---
:1955 Author Organization [facility] [place] [address] Care Team Providers Name Role Phone Eli Bergman MD Primary Care Provider Encounter Details Date Type Department Care Team Description 03/02/2013 Hospital Encounter Laboratory Linn Finney, Opiate dependence [facility] [address] [place], [place] [address] [place] [address] [phone] Social History Tobacco Use Types Packs/Day Years [...] Dispensed Refills Start Date End Date multivitamin Take 1 tablet by 0 08/21/2012 (THERAGRAN) tablet mouth daily. methadone (DOLOPHINE) Take 4 tablets by 224 tablet 0 013 05/04/2013 10 mg mouth 4 times daily. tabletIndications: Refill due date Pain, Chronic narcotic 03/03/[address] Bergman; script handed to pt on 03/02/13 methylphenidate Take 1 tablet by 112 tablet 0 02/18/2013 (RITALIN) 20 mg mouth 4 times daily. tabletIndications: Refill due on attention-deficit 03/03/13 Signed in hyperactivity disorder the absence Dr Bergman Indications: Attention-Deficit Hyperactivity Disorder diaZEPam (VALIUM) 5 mg take 1 tablet by 90 tablet 2 013 05/04/2013 tablet mouth three times a day if needed for anxiety buPROPion (WELLBUTRIN Take 1 tablet by 30 tablet 5 10/07/19 13 04/13/2013 XL) 300 mg 24 hr tablet mouth every morning. atenolol (TENORMIN) 50 Take 1 tablet by 90 tablet 3 013 08/28/2016 mg tablet mouth 2 times daily. famotidine (PEPCID) 20 Take 1 tablet by 60 tablet 12 012 04/26/2014 mg tablet mouth 2 times daily. amlodipine (NORVASC) 5 Take 1 tablet by 90 tablet 3 012 08/20/2016 mg tablet mouth daily. documented as of this encounter Plan of Treatment Upcoming Encounters Date Type Specialty Care Team Description 12/11/2021 Appointment Radiology 12/11/2021 Office Visit Orthopaedics Marion Tavera APRN [facility] DR ORTHOPAEDIC SURG [place], [place] [address] (Wo rk) 01/15/2022 Appointment Radiology Stiven Cervantes MD [facility] Pulmonary Medici [place], [place] [address] (Wo rk) Scheduled Procedures Name Priority Associated Diagnoses Date/Time DEBRIDEMENT SKIN, SUBCU, MUSCLE, R great toe amp utation, wound LOWER EXTREMITY (WRVU 2.7) closure MODIFIER WOUND VAC R great toe amputation, wound closure documented as of this encounter Procedures Procedure Name Priority Date/Time Associated Comments Diagnosis MISCELLANEOUS LAB Routine 03/02/2013 3:00 PM Opiate dependence Results for this REQUEST EDT procedure are i n the results section. MISC SENDOUT Routine 03/02/2013 3:00 PM Results f or this EDT procedure are i n the results section. DRUG SCREEN WITH Routine 03/02/2013 3:00 PM Opiate dependence Results for this CONFIRMATION, URINE EDT procedur e are in (SEND OUT) the results section. BENZODIAZEPINE, URINE Routine 03/02/2013 3:00 PM Opiate depend ence Results for this CONFIRMATION EDT procedure are i n the results section. documented in this encounter Results [facility] Sendout (03/02/2013 3:00 PM EDT) athologist Signature [facility] Sendout See Note [facility] Comment: The ordered test is: Methylphenidate and Metabolite,Urine Test performed by: [facility], [address] [place] [id number] The test result is: Please see scanned r eport in Chart Review under the Non-[facility] Laboratory Heading. Specimen Anatomical Collection Method Collection Time Receive d Time (Source) Location / / Volume Laterality Specimen of 03/02/2013 3:00 PM 3 9:29 unknown material EDT AM EDT (specimen) Narrative This result has an attachment that is no t available. Eli Bergman MD CHEMISTRY ORDERABLES Performing Organization Address City/[facility]/[place] [address] [facility] Miscellaneous Lab request (03/02/2013 3:00 PM EDT) [facility] Method Time [facility] Lab Request CERNER Result received in [facility] lab. Specimen Anatomical Collection Method Collection Time Receive d Time (Source) Location / / Volume Laterality Specimen of 03/02/2013 3:00 PM 3 3:57 unknown material EDT PM EDT (specimen) Linn Finney MD HEMATOLOGY ORDERABLES Performing Organization Address City/[facility]/[place] [address] [facility] Benzodiazepine, Urine Quantitative (03/02/2013 3:00 PM EDT) [facility] Method Time [facility] U Benzo Conf CERNER Test ?Result ?? Flag ??Unit ?? RefValue [facility] Drug of Abuse, Benzo Conf, U ??GC/MS Confirmation - ?Positive ?Benzodiazepine ??Lorazepam ? Negative ? ng/mL ?? Cutoff: <100 ??Nordiazepam ? Negative ? ng/mL ??C utoff: <100 ??Oxazepam ?189 ?ng/mL ??Cutoff: <100 ??Temazepam ? Negative ? ng/mL ?? Cutoff: <100 ??UL-Ffbge-Aeazqoetjr ? Negative ? ng/mL ??Cutof f: <100 ??0-HW-Gauaoyxqti ? Negative ? ng/mL ??Cut off: <100 ??9-TT-Lrtyrijdpqqcm ?Negative ? ng/mL ??Cuto ff: <50 ??Alpha OH-Alprazolam ? Negative ? ng/mL ??Cutof f: <100 ??Wlrjl-RF-Weyznhoqh ?Negative ? ng/mL ??Cuto ff: <100 This report is intended for use in clinical monitoring and management of patients. It is not intended for use in employment-related drug testing. Test Performed by: [facility] [address], [place] [address] Plastic Machine Operator: Berna Martino, Ph.D. Specimen Anatomical Collection Method Collection Time Receive d Time (Source) Location / / Volume Laterality Urine specimen 03/02/2013 3:00 PM 013 4:11 (specimen) EDT PM EDT Resulting Agency Comment Spec In Lab Linn Finney MD URINE ORDERABLES Performing Organization Address City/State/ZIP [place] [address] [facility] Drug Screen with Confirmation, Urine (03/02/2013 3:00 PM EDT) Component Value Ref Test Analysis Performed At [facility] gist Range Method Time Signature U [facility] w/Conf CERNER Test ?Result ?? Flag ??Unit ?? RefValue [facility] Drug Screen, U ??Amphetamines ?Negative ? ng/mL ??C utoff: 500 ??Barbiturates ?Negative ? ng/mL ??C utoff: 200 ??Benzodiazepines ? Positive ? ng/mL ??Cut off: 200 ??Cocaine Metabolite ?Negative ? ng/mL ??Cuto ff: 150 ??Methadone ? Negative ? ng/mL ?? Cutoff: 300 ??Opiates ? Negative ? ng/mL ? ?Cutoff: 300 ??Phencyclidine ? Negative ? ng/mL ??Cu toff: 25 ??Propoxyphene ?Negative ? ng/mL ??C utoff: 300 ??Tetrahydrocannabinols ?? Negative ? ng/mL ??Cutoff : 50 ??Ethanol ? Negative ? mg/dL ? ?Cutoff: 10 ??Comment Specimen unusually dilute. Results from this test are presumptive; for positive results refer to the corresponding drug confirmation for the definitive result. This report is intended for use in clinical monitoring and management of patients. It is not intended for use in employment-related drug testing. ??Confirmation - Opiates ??Negative ??Codeine ? Negative ? ng/mL ? ?<100 ??Hydrocodone ? Negative ? ng/mL ??< 100 ??Hydromorphone ? Negative ? ng/mL ??<1 00 ??Morphine ?Negative ? ng/mL ? ?<100 ??Oxycodone ? Negative ? ng/mL ?? <100 ??Oxymorphone ? Negative ? ng/mL ??< 100 This report is intended for use in clinical monitoring and management of patients. It is not intended for use in employment-related drug testing. Test Performed by: [place] [address] Plastic Machine Operator: Berna Martino, Ph.D. Specimen Anatomical Collection Method Collection Time Receive d Time (Source) Location / / Volume Laterality Urine specimen 03/02/2013 3:00 PM 013 4:11 (specimen) EDT PM EDT Resulting Agency Comment Spec In Lab Linn Finney MD URINE ORDERABLES Performing Organization Address City/State/[place] [address] [facility] documented in this encounter Visit Diagnoses Diagnosis Opiate dependence Opioid type dependence, unspecified documented in this encounter Care Teams Installment Loan Collector Relationship Specialty Start Date End Date Eli Bergman MD PCP - General 11/21/11 04/20/13 [facility] [place] [address] documented as of this encounter
--- OUTSIDE RECORDS SUMMARY | 2021-11-30 08:26 | XMS_ITS | Encounter Summary ---
:1955 Author Organization [facility] Address [facility] [place] [address] Care Team Providers Name Role Phone Unknown Primary Care Provider Unavailable Encounter Details Date Type Department Care Team Description 03/22/2013 Telephone Orthopaedics at [facility] Braxton Foy MD [facility] [address] ORTHOPAEDIC SURGERY [phone] [place], [place] [address] (Wo rk) Social History Tobacco [...] this encounter Miscellaneous Notes Telephone Encounter - Jasmyne Billingsley RN - 03/22/2013 2:44 PM EST Follow up call made to patient. Patient state he does not want to speak to a nurse he needs to talkwith Dr Foy. Explained to patient that Dr Foy is out of the office today, he states he willcall back. Of note patient speech was very slurred. Telephone Encounter - GarrtetAnastasiiaNiki E - 03/22/2013 2:15 PM EST His number is [phone]. Telephone Encounter - Niki Tucker - 03/22/2013 2:07 PM EST Patient called in asking to speak with Dr. Foy. He was very hard to understand as he sounded very intoxicated or under the influence. He has questions about a past surgery he did. I told him if he wanted to discuss this he would have to schedule a follow up which he refused. He was last seen in [facility] on 06/22/2009. He states he knows Dr. Foy personally and wants him to call him so they can discuss this over the phone, I offered him to speak with his nurse which he refused. I told him I would send him the message. documented in this encounter Plan of Treatment Upcoming Encounters Date Type Specialty Care Team Description 12/11/2021 Appointment Radiology 12/11/2021 Office Visit Orthopaedics Marion Tavera APRN [facility] ORTHOPAEDIC SURG [place], [place] [address] (Wo rk) 01/15/2022 Appointment Radiology Stiven Cervantes MD [facility] Pulmonary Medici [place], [place] [address] (Wo rk) Scheduled Procedures Name Priority Associated Diagnoses Date/Time DEBRIDEMENT SKIN, SUBCU, MUSCLE, R great toe amp utation, wound LOWER EXTREMITY (WRVU 2.7) closure MODIFIER WOUND VAC R great toe amputation, wound closure documented as of this encounter Visit Diagnoses Not on filedocumented in this encounter Care Teams Return Checker Relationship Specialty Start Date End Date Unknown PCP - General 04/21/13 11/18/13 None documented as of this encounter
--- OUTSIDE RECORDS SUMMARY | 2021-11-30 08:26 | XMS_ITS | Encounter Summary ---
:1955 Author Organization [facility] [place] [address] Care Team Providers Name Role Phone Brian Fall APRN Primary Care Provider Reason for Visit Reason Comments Medication Refill Encounter Details Date Type Department Care Team Description 05/10/2014 Refill Psychiatry and Behavioral Sen Gomes MD [facility] Jenni hammer [place] [address] [place] [address] [phone] (Wo rk) Social History Tobacco Use Types [...] Marion Tavera APRN [facility] DR ORTHOPAEDIC SURG [place], [place] [address] (Wo rk) 01/15/2022 Appointment Radiology Atkins, Stiven T , MD [facility] Pulmonary Tim [place], [place] [address] (Wo rk) Scheduled Procedures [...] documented as of this encounter Care Teams Wringer Machine Operator Relationship Specialty Start Date End Date Brian Fall APRN PCP - General Internal Medicine 04/07/[address] [place] [phone] documented as of this encounter
--- OUTSIDE RECORDS SUMMARY | 2021-11-30 08:26 | XMS_ITS | Encounter Summary ---
:1955 Author Organization [facility] [place] [address] Care Team Providers Name Role Phone Azalia Peña APRN Primary Care Provider Reason for Referral Consultation (Routine) - Closed Specialty Diagnoses / Procedures Referred By Contact Refer red To Contact Pain Management Diagnoses H/O total hip arthroplasty, bilateral Braxton Foy MD [facility] [address] [place] [address] [place] [address] [place] [address] Fax: Referral ID Status Reason Start Date Expiration Date Visits V isits Requested Authorized [id number] Closed Consult, 03/31/2014 09/27/2014 1 1 Test & Treat Reason for Visit Reason Comments Right Hip Pain Encounter Details Date Type Department Care Team Description 03/31/2014 Office Visit [place] [facility] Braxton Foy H/O total hip [facility] MD Alvin arthroplasty, [place] [address] [place] [address] ORTHOPAEDIC SURGERY [place], [place] [address] Social History Tobacco Use Types [...] Sign Reading Time Taken Comments Blood Pressure 132/85 03/31/2014 4:01 PM EST Pulse 83 03/31/2014 4:01 PM EST Temperature - - Respiratory Rate - - Oxygen Saturation - - Inhaled Oxygen Concentration - - Weight 108.9 kg (240 lb) 03/31/2014 4:01 PM EST Height 175.3 cm (5' 9) 03/31/2014 4:01 PM EST Body Mass Index 35.44 03/31/2014 4:01 PM EST documented in this encounter Progress Braxton Koehler - 03/31/2014 4:24 PM EST Mr. Ramos is a 58-year-old gentleman well known to me. About 16 years ago, he had bilateral total hip replacements done because of osteonecrosis bilaterally. He has had problems with depression and with excessive substance utilization in the past and what brings him in today is that he was at a construction site in the [facility] where his son was working and he tripped over some heavy equipment and he almost faced the ground, but he did not hit with his face, but he did stress his back and his right Hip. His chronic back pain is the biggest problem that he has had. His hips have not bothered him, but he was made uncomfortable when this occurred around the entire hind quarter as well as in the right thigh and right sims when he fell three weeks ago. He could not get around without crutches for a couple of weeks, last week one crutch, and today he actually came into the hospital with no ambulatory aids. He was actually seen recently here by Alma Obrien in the spine center for his chronic pain syndrome and there is a decent note there summarizing the problems that he has had with opioids and alcohol and it very clearly mentions that under the circumstances, it would not be appropriate to give him any medication. He was on methadone for many, many years and for some reason, he said this was discontinued and I am not quite sure why, but having examined him today with a hip that has a smooth articulation, although he guards, but with an x-ray of the hip that shows actually his uncemented implant is in satisfactory position; nothing to suggest stress shielding, implant failure, loosening, or malposition and very importantly nothing to suggest any recent trauma was reassuring, but I think that this gentleman needs to get back into the pain clinic again. He needs to have an organized way of dealing with his addiction so that at least he could continue to function in society. I do not really have anything else to offer him at this particular point in time, but his psychological management has been done here to some degree. He has had physical therapy here and he has had pain management issues here and I think that this is a good place for those issues to all be addressed in an organized fashion. As far as his hip is concerned, no harm was done. Crutches can be used, he could wean himself from them, but he should be seen probably in one year's time for followup with x-rays of both knees and another clinical exam. CC: Azalia Peña APRN documented in this encounter Plan of Treatment Upcoming Encounters Date Type Specialty Care Team Description 12/11/2021 Appointment Radiology 12/11/2021 Office Visit Orthopaedics Marion Tavera APRN [facility] ORTHOPAEDIC SURG [place], [place] [address] (Wo rk) 01/15/2022 Appointment Radiology Stiven Cervantes MD [facility] Pulmonary Medici [place], [place] [address] (Wo rk) Scheduled Procedures Name Priority Associated Diagnoses Date/Time DEBRIDEMENT SKIN, SUBCU, MUSCLE, R great toe amp utation, wound LOWER EXTREMITY (WRVU 2.7) closure MODIFIER WOUND VAC R great toe amputation, wound closure Scheduled Referrals Name Type Priority Associated Diagnoses Order S chedule Referral to Pain Outpatient Referral Routine H/O Total Hip Ord ered: Clinic Arthroplasty, 03/31/2014 Bilateral documented as of this encounter Visit Diagnoses Diagnosis H/O total hip arthroplasty, bilateral documented in this encounter Care Teams Wharf Tender Helper Relationship Specialty Start Date End Date Azalia Peña APRN PCP - General 11/19/13 03/19/17 documented as of this encounter
--- OUTSIDE RECORDS SUMMARY | 2021-11-30 08:26 | XMS_ITS | Encounter Summary ---
:1955 Author Organization [facility] [place] [address] Care Team Providers Name Role Phone Azalia Peña APRN Primary Care Provider Reason for Visit Reason Comments Pain Management Back Pain Cervicalgia Left Hip Pain Encounter Details Date Type Department Care Team Description 03/11/2014 Office Visit Pain Management at [facility] Chro nadia pain (Primary [place] HUMAN RESOURCES EXECUTIVE Dx) [facility] [place], [place] [facility] [id number] [address] [phone] Social History Tobacco Use Types Packs/Day Years [...] Sign Reading Time Taken Comments Blood Pressure 144/80 03/11/2014 10:46 AM EDT Pulse 73 03/11/2014 10:46 AM EDT Temperature - - Respiratory Rate - - Oxygen Saturation 90% 03/11/2014 10:46 AM EDT Inhaled Oxygen Concentration - - Weight 88.5 kg (195 lb) 03/11/2014 10:46 AM EDT Height 175.3 cm (5' 9) 03/11/2014 10:46 AM EDT Body Mass Index 28.8 03/11/2014 10:46 AM EDT documented in this encounter Progress Notes [facility], HUMAN RESOURCES EXECUTIVE - 03/11/2014 12:11 PM EDT CHIEF COMPLAINT: Chronic pain. HISTORY OF PRESENT ILLNESS: Mr. Ramos has had some component of lower back pain since 1979 that he describes as coming on from heavy work and use. He underwent two total hip replacements in 1995 for avascular necrosis by Dr. Foy. He has continued to have some component of pain since that time, previously seen by our GI clinic where he had a broken contract. He has also been under the care of our mental health group, last being seen in 2012 and presently under the care of his primary care doctor, Dr. Farrukh Giles who referred him here today. Symptoms today include low back pain, this radiates into the left buttock, but no leg symptoms. He has pain in both feet. He feels it is in the middle of his bone. He has numbness in both feet and weakness in both legs. Symptoms are worse with lifting, feels better when he is in a recliner. He describes his pain as ruining my life, this causes difficulty with sleep. He rates his pain today at 5/10 which is the good as it gets, it was 10/10 last night. He had a diskectomy by Dr Polanco in 1995. Review of systems is positive for increased bruising. No other GI, , or constitutional symptoms. SOCIAL HISTORY: He is on social security. He smokes anywhere from zero to three cigarettes a day. He will drink six-pack of teas in a day. He lives in house with his spouse, his daughter and her two sons, also a son and his daughter. Opioid risk assessment is positive for a personal history of alcoholism, personal history of illegal drug use, personal history of difficulty with prescription drugs, personal history of depression. OBSERVATION: He is pleasant, has good eye contact. He ambulates in the clinic with grossly antalgic gait. He can heel walk and toe walk. From his waist, he flexes forward down to his lower calf. He extends about 25 degrees and has increased discomfort in his spine with this maneuver. He has good cervical flexion and extension with a decreased lateral rotation of about 25% in the cervical spine. He has good movement with his upper extremities, although he has slight decreased strength in his left shoulder, a decreased pincer grasp on the left, and a decreased hotel services supervisor on the left all at 4+/5. His lower extremity has good strength. He has normal sensation to touch in the upper extremities; however, to the lower extremities he has decreased sensation on the right lateral thigh and in both feet in the stocking pattern. He is quite stiff. He has normal reflexes in the upper extremities and at the knees; however, I am unable to get him to relax enough to get heel jerks. He has no Babinski, no clonus, no Abraham's. His skin is pink, warm, and dry. His lungs are clear to auscultation. He did not appear to have spasticity when lying on testing. Straight leg raise is uncomfortable and he has some stiffness noted with that. He does have a limited internal rotation and external rotation of both of his hips. IMAGING: None. IMPRESSION: Chronic pain. PLAN: Mahin Ramos is a 58-year-old retired gentleman who describes having had some component of back pain since the . He developed avascular necrosis in 1995 and did undergo bilateral total hip replacements in 1998- [address] Foy. He has also had a diskectomy [place] [address] Polanco. He describes having a significant pain in his lower back that can go into his left buttock and he describes this pain as 5/10 when seen today. 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 He has traditionally been treated with pain medication. Did have a history of overuse of this and it was Dr. Foy who helped him to get into the [facility] retreat in the year 1999. Since that time, he has been seen by a pain clinic and the documentation suggest that he was discharged from the pain clinic in August of this year for suspicion of selling oxycodone and testing positive for cocaine metabolite. He also was previously treated by our internal medicine and the notation in the chart is that he failed his opioid agreement in 12/2012 when his urine drug screen was negative for methadone, and other medications that should have been present. Mr. Ramos also describes that he was taking 90 mg of methadone a day that his primary care doctor was writing for him, although she is uncomfortable continuing to write for that. He does add that to our floor staff that when he is unable to obtain this medication he will purchase it on the street. On exam, he does appear to have some mechanical component to his low back pain and he also has these hip replacements that has not been followed over time. I reviewed his case with Dr. Sánchez who did join me to speak with Mr. Ramos. We are both of the opinion that there are some concerns regarding his focus solely on pain medication. I did offer Mr. Ramos an option of working at his lower back pain including imaging. I did also offer him nonopioid medications. I did offer him a referral to see the lower extremity team. Mr. Ramos was focused mostly on obtaining methadone and he was willing to negotiate 90 mg versus 45 mg. When asked what urine drug screen would show if we did one today, he would not commit to what would be found. He was not interested in learning any other strategies for controlling his pain and he has declined other options other than the methadone. We heard he is not interested In other other options offered and is looking solely for methadone and pain medications. He is not interested in having his continued symptoms, including his hip symptoms worked up, given the red flags of his previous addictions and being fired from at least two prior clinics, we stated that we would not be prescribing for him today. Mr. Ramos did add that he was going to have trouble purchasing his drugs from the street which was his intent that he Feels he would be pushed into doing. I think that there are some significant Issues here. However, we did explain to him that given the concern of addiction that it would be illegal for us to prescribe for him these medications. With that, he did leave the clinic. documented in this encounter Plan of Treatment Upcoming Encounters Date Type Specialty Care Team Description 12/11/2021 Appointment Radiology 12/11/2021 Office Visit Orthopaedics Marion Tavera APRN [facility] ORTHOPAEDIC SURG [place], [place] [address] (Wo rk) 01/15/2022 Appointment Radiology Stiven Cervantes MD [facility] er Pulmonary Medici [place], [place] [address] (Wo rk) Scheduled Procedures Name Priority Associated Diagnoses Date/Time DEBRIDEMENT SKIN, SUBCU, MUSCLE, R great toe amp utation, wound LOWER EXTREMITY (WRVU 2.7) closure MODIFIER WOUND VAC R great toe amputation, wound closure documented as of this encounter Visit Diagnoses Diagnosis Chronic pain - Primary Other chronic pain documented in this encounter Care Teams Tandem Operator Relationship Specialty Start Date End Date Azalia Peña APRN PCP - General 11/19/13 03/19/17 documented as of this encounter
--- OUTSIDE RECORDS SUMMARY | 2021-11-30 08:26 | XMS_ITS | Encounter Summary ---
:1955 [place] [address] Care Team Providers Name Role Phone Brian Fall APRN Primary Care Provider Reason for Visit Reason Comments Medication Refill Encounter Details Date Type Department Care Team Description 06/09/2013 Refill Internal Medicine at [facility] Eli Bergman MD [facility] [place] [address] GENERAL INTERNAL MEDICINE [phone] [place], [place] [address] (Wo rk) Social History Tobacco [...] 12/11/2021 Office Visit Orthopaedics Marion Tavera APRN [facility] DR ORTHOPAEDIC SURG [place], [place] [address] (Wo rk) 01/15/2022 Appointment Radiology Stiven Cervantes MD [facility] er Pulmonary [place], [place] [address] (Wo rk) Scheduled Procedures Name [...] documented as of this encounter Care Teams Log Hooker Relationship Specialty Start Date End Date Brian Fall APRN PCP - General Internal Medicine 04/07/[address] [place] [phone] documented as of this encounter
--- OUTSIDE RECORDS SUMMARY | 2021-11-30 08:26 | XMS_ITS | Encounter Summary ---
:1955 Author Organization [facility] [place] [address] Care Team Providers Name Role Phone Unknown Primary Care Provider Unavailable Encounter Details Date Type Department Care Team Description 03/15/2013 Telephone Orthopaedics at [facility] Braxton Foy MD [facility] [place] [address] ORTHOPAEDIC SURGERY [phone] [place], [place] [address] (Wo rk) Social History Tobacco [...] 12/11/2021 Office Visit Orthopaedics Marion Tavera APRN [facility] ORTHOPAEDIC SURG [place] [address] (Wo rk) 01/15/2022 Appointment Radiology Stiven Cervantes MD [facility] er Pulmonary Medici [place], [place] [address] (Wo rk) Scheduled Procedures Name Priority Associated Diagnoses Date/Time DEBRIDEMENT SKIN, SUBCU, MUSCLE, R great toe amp utation, wound LOWER EXTREMITY (WRVU 2.7) closure MODIFIER WOUND VAC R great toe amputation, wound closure documented as of this encounter Visit Diagnoses Not on filedocumented in this encounter Care Teams Pattern Duplicator Relationship Specialty Start Date End Date Unknown PCP - General 04/21/13 11/18/13 None documented as of this encounter
--- OUTSIDE RECORDS SUMMARY | 2021-11-30 08:26 | XMS_ITS | Encounter Summary ---
:1955 Author Organization [facility] Address [address] [place] [address] Care Team Providers Name Role Phone Eli Bergman MD Primary Care Provider Encounter Details Date Type Department Care Team Description 01/14/2013 Anesthesia Event Gastroenterology at [facility] Felicia Mondragon MD [facility] [place] [address] [facility] Kim Patino CRNA [facility] [place] [address] [place] [address] Anesthesia Record Procedure Summary Procedure Name Responsible Anesthesia Start Anesthesia Stop Time Anesthesiologist Time EGD, UPPER GI Felicia Mondragon MD 01/14/13 0831 01/14/13 084 4 ENDOSCOPY (N/A Trunk) Events Date Time Event Comment 01/14/2013 0831 AN Verify 0831 Start 0831 An Start Data 0843 an stop data 0844 Stop 0937 Name Total Propofol 160 mg sodium chloride 0.9% infusion 0 mL Agents Name O2 Blood No blood administrations on file. Lines, Drains, and Airways Type Details Placement Removal PIV 08/19/12; 1820; 07/11/14; 08/19/12 1820 by Jeny er, 07/11/14 0621 by Pia, 0621 VINCENT Price RN PIV 01/14/13; 0825; 01/14/13; 01/14/13 08 by Gordon Cedillo 01/14/13 09 by Mera Mojica RN Deborah B, RN documented in this encounter Social History [...] encounter OR Notes Anesthesia Postprocedure Evaluation - Felicia Mondragon MD - 01/14/2013 8:50 AM EDT Patient: Mahin Ramos Procedure(s) Performed: Procedure(s): EGD, UPPER GI ENDOSCOPY Actual Anesthetic: No value filed. Patient location: PACU Post-op pain: Adequate analgesia Post-op nausea: no nausea or vomiting Last Vitals: Filed Vitals: 01/14/13 0805 BP: 145/79 Pulse: 64 Temp: 36.7 ??C (98.1 ??F) Resp: 14 Post-op cardiovascular and respiratory status: is stable Level of consciousness: awake and alert Complications: no apparent complications and tolerated the procedure well Fluid Status: normal Anesthesia Preprocedure Evaluation - Felicia Mondragon MD - 01/13/2013 7:38 PM EDT Pre-Anesthesia Evaluation for: Mahin Ramos a 57 y.o. male. Procedure(s): EGD, UPPER GI ENDOSCOPY Patient Active Problem List Diagnosis ??? Confusion ??? Community acquired pneumonia ??? Imbalance ??? Hepatitis C Genotype 2b ??? Alcohol dependence ??? Anixety D/O NOS ??? ADHD NOS ??? Chronic back pain ??? Major depressive disorder, single episode, unspecified Past Medical History Diagnosis Date ??? HTN (hypertension) ??? GERD (gastroesophageal reflux disease) ??? Depression ??? Hepatitis C Past Surgical History Procedure Date ??? Revision total hip arthroplasty bilateral for hip AVN History Substance Use Topics ??? Smoking status: Current Some Day Smoker -- 0.2 packs/day for 42 years Types: Cigarettes ??? Smokeless tobacco: Former User Comment: electronic ??? Alcohol Use: 10.5 oz/week 21 drink(s) per week twisted tea History Drug Use No No Known Allergies Medications: MAR and/or home medications have been reviewed. Physical Exam: There were no vitals filed for this visit. There is no height or weight on file to calculate BMI. Airway Assessment: Mallampati: II TM distance: >3 FB Neck ROM: full Cardiovascular Assessment: Pulmonary Assessment: Dental Assessment: (+) upper dentures and lower dentures Misc Assessment: Anesthesia Plan: ASA 3 general and MAC, with a(n) intravenous induction 57 yo M w/ GERD, cirrhosis, chronic Hep C for EGD. Plan MAC/GA - propofol HTN GERD - well controlled Chronic pain (back, R shoulder) - opiate dependent Depression/Anxiety ADHD S/p bilateral THR for avascular necrosis Hx PNA 08/2012 Smoker - less than 1 ppd currently Hx EtOH No recent URI No hx anesthetic problems NKMA Wt: 97 kg NPO: Solids/liquids 2200 Code: Full 11/16/12 WBC 9.0, H/H 13.0/39.3, plts 293 Na 138, K 3.9, BUN 9 Cr 1.18, eGFR greater than 60 PT 13.7, INR 1.0 01/05/13 CXR - lungs clear, elevated R hemidiaphragm(old) 08/19/12 ECG - normal Region - Other Informed Consent: Anesthetic plan and risks discussed with patient. Use of blood products discussed with patient whom consented to blood products. [facility]. Assessment: documented in this encounter Plan of Treatment Upcoming Encounters Date Type Specialty Care Team Description 12/11/2021 Appointment Radiology 12/11/2021 Office Visit Orthopaedics Marion Tavera , COMMERCIAL ACCOUNT MANAGER [facility] ORTHOPAEDIC SURG [place], [place] [address] (Wo rk) 01/15/2022 Appointment Radiology Stiven Cervantes MD [facility] Pulmonary Medici [place], [place] [address] (Wo rk) Scheduled Procedures Name [...] MAR Action Action Date Dose Rate Site propofol (DIPRIVAN) 10 mg/mL bolus Given 01/14/2013 8:38 AM EDT 30 mg injection (Anesthesia) PRN, Starting on Christina 01/14/13 at 0834, Until Christina 01/14/13 at 0844, Anesthesia Intra-op Given 01/14/2013 8:36 AM EDT 30 mg Given 01/14/2013 8:34 AM EDT 100 mg sodium chloride 0.9% infusion New Bag 01/14/2013 8:31 AM EDT mL 30 mL/hr, Intravenous, CONTINUOUS, Starting on Christina 01/14/13 at 0830, Until Christina 01/14/13 at 1149, Endoscopy (Day of Procedure) documented in this encounter Care Teams Education Courses Sales Representative Relationship Specialty Start Date End Date Eli Bergman MD PCP - General 11/21/11 04/20/13 [facility] [place] [address] documented as of this encounter
--- OUTSIDE RECORDS SUMMARY | 2021-11-30 08:26 | XMS_ITS | Encounter Summary ---
:1955 Author Organization [facility] [place] [address] Care Team Providers Name Role Phone Eli Bergman MD Primary Care Provider Reason for Visit Reason Onset Date Comments Medication Refill 02/09/2013 Encounter Details Date Type Department Care Team Description 02/09/2013 Ref[address] Medicine [address] [facility] Vidhya Puckett RN Pain (Primary Dx) [place] [phone] Social History Tobacco Use Types Packs/Day [...] Orthopaedics Marion Tavera APRN [facility] DR ORTHOPAEDIC SURG [place], [place] [address] (Wo rk) 01/15/2022 Appointment Radiology Stiven Cervantes MD [facility] Pulmonary Medici [place], [place] [address] (Wo rk) Scheduled Procedures Name Priority Associated Diagnoses Date/Time DEBRIDEMENT SKIN, SUBCU, MUSCLE, R great toe amp utation, wound LOWER EXTREMITY (WRVU 2.7) closure MODIFIER WOUND VAC R great toe amputation, wound closure documented as of this encounter Visit Diagnoses Diagnosis Pain - Primary Generalized pain documented in this encounter Care Teams Roller Setter Relationship Specialty Start Date End Date Eli Bergman MD PCP - General 11/21/11 04/20/13 [facility] GENERAL [place] [address] documented as of this encounter
--- OUTSIDE RECORDS SUMMARY | 2021-11-30 08:26 | XMS_ITS | Encounter Summary ---
:1955 [place] [address] Care Team Providers Name Role Phone Brian Fall APRN Primary Care Provider Reason for Visit Reason Comments Medication Refill Encounter Details Date Type Department Care Team Description 04/18/2013 Refill Internal Medicine at [facility] Eli Bergman MD [facility] [place] [address] GENERAL INTERNAL MEDICINE [phone] [place], [place] [address] (Wo rk) Social History Tobacco [...] [facility] DR ORTHOPAEDIC SURG [place], [place] [address] (Wo rk) 01/15/2022 Appointment Radiology Stiven Cervantes MD [facility] er Pulmonary [place], [place] [address] (Wo rk) Scheduled Procedures Name [...] documented as of this encounter Care Teams Glass Bender Relationship Specialty Start Date End Date Brian Fall APRN PCP - General Internal Medicine 04/07/[address] [place] [phone] documented as of this encounter
--- OUTSIDE RECORDS SUMMARY | 2021-11-30 08:26 | XMS_ITS | Encounter Summary ---
:1955 Author Organization [facility] [place] [address] Care Team Providers Name Role Phone Eli Bergman MD Primary Care Provider Encounter Details Date Type Department Care Team Description 02/03/[address] [facility] Eli Bergman MD [facility] [place] [phone] GENERAL INTERNAL MEDICINE [phone] [place], [place] [address] (Wo rk) Social History Tobacco [...] Notes Telephone Encounter - Eli Bergman - 02/03/2013 4:55 PM EDT Called patient (as he had called [facility] nurse requesting to speak with me); however unable to reach patient. I left a message and will try again. documented in this encounter Plan of Treatment Upcoming Encounters Date Type Specialty Care Team Description 12/11/2021 Appointment Radiology 12/11/2021 Office Visit Orthopaedics Marion Tavera APRN [facility] ORTHOPAEDIC SURG [place], [place] [address] (Wo rk) 01/15/2022 Appointment Radiology Stiven Cervantes MD [facility] Pulmonary Medici [place], [place] [address] (Wo rk) Scheduled Procedures Name Priority Associated Diagnoses Date/Time DEBRIDEMENT SKIN, SUBCU, MUSCLE, R great toe amp utation, wound LOWER EXTREMITY (WRVU 2.7) closure MODIFIER WOUND VAC R great toe amputation, wound closure documented as of this encounter Visit Diagnoses Not on filedocumented in this encounter Care Teams Steward/Stewardess Room Relationship Specialty Start Date End Date Eli Bergman MD PCP - General 11/21/11 04/20/13 [facility] [place] [address] documented as of this encounter
--- OUTSIDE RECORDS SUMMARY | 2021-11-30 08:26 | XMS_ITS | Encounter Summary ---
:1955 Author Organization [facility] [place] [address] Care Team Providers Name Role Phone Azalia Peña APRN Primary Care Provider Reason for Visit Reason Onset Date Comments Medication Refill 04/13/2013 Encounter Details Date Type Department Care Team Description 04/13/2013 Refill Internal Medicine at [place] Bergman MD Hypertension (Primary [facility] Dx) [facility] [address] [place] [address] MEDICINE [phone] [place], [place] [address] (Wo rk) Social History Tobacco [...] APRN [facility] DR ORTHOPAEDIC SURG [place], [place] [address] (Wo rk) 01/15/2022 Appointment Radiology Stiven Cervantes MD [facility] er Pulmonary Medici [place], [place] [address] (Jorge arzate) Scheduled Procedures Name Priority Associated Diagnoses Date/Time DEBRIDEMENT SKIN, SUBCU, MUSCLE, R great toe amp utation, wound LOWER EXTREMITY (WRVU 2.7) closure MODIFIER WOUND VAC R great toe amputation, wound closure documented as of this encounter Visit Diagnoses Diagnosis Hypertension - Primary Unspecified essential hypertension documented in this encounter Care Teams Tie Hacker Relationship Specialty Start Date End Date Azalia Peña APRN PCP - General 11/19/13 03/19/17 documented as of this encounter
--- OUTSIDE RECORDS SUMMARY | 2021-11-30 08:26 | XMS_ITS | Encounter Summary ---
:1955 Author Organization [facility] [place] [address] Care Team Providers Name Role Phone Unknown Primary Care Provider Unavailable Reason for Referral Psychiatric (Routine) - Complete - Unable to Contact Patient Specialty Diagnoses / Procedures Referred By Contact Refer red To Contact Psychology / Diagnoses Attention deficit hyperactivity disorder (ADHD) Sen Gomes MD [facility] Psychiatry 5d Psychiatry Procedures PROSECUTING ATTORNEY Testing [facility] [address] [place] [phone] Fax: Referral ID Status Reason Start Expiration Visits Visits Date Date Requested Authorized [id number] Complete - Consult & 10/31/2013 3 3 Unable to Test 3 Contact Patient Reason for Visit Reason Comments Depression Encounter Details Date Type Department Care Team Description 05/04/2013 Office Visit Psychiatry and Sen Gomes, Major depr essive disorder, recurrent episode, moderate (Primary Dx); Behavioral Health at Attention deficit hyperactivity disorder (ADHD) [facility] [address] PSYCHIATRY DEPT [place], [place] [phone] Social History Tobacco Use Types Packs/Day Years [...] Sign Reading Time Taken Comments Blood Pressure 162/93 05/04/2013 3:35 PM EST Pulse 83 05/04/2013 3:35 PM EST Temperature - - Respiratory Rate - - Oxygen Saturation - - Inhaled Oxygen Concentration - - Weight - - Height - - Body Mass Index - - documented in this encounter Progress Notes Farrukh Ballard MD - 05/04/2013 8:26 PM EST .PSYCHIATRY TEACHING PHYSICIAN INVOLVEMENT Location: Psychopharmacology Clinic Attending Physician: Farrukh Ballard MD Resident name: Dr. Sen Gomes I saw and evaluated the patient with the above named resident/ See their note for details. I reviewed the patient's history during the visit and I agree with the details as written. My exam confirms the resident's findings. The assessment and plan were formulated in discussion with me and I agree withthem as documented. Major issues addressed/discussed: Assessment: Mr. Mahin Ramos is a 57 y.o. man with major depressive d/o with complaints of increased difficulty coping since his ritalin and methadone were stopped in the context of his violating his narcotics contract with his PCP. He is focused on being restarted on ADHD. At this time, we think the prior diagnosis of ADHD should be further clarified with neuropsych testing. Additionally, he is hypertensive and thus not a good candidate for stimulants. Would consider future trials of clonidine or guanfacine.Agree to continue valium for now. Suspect underlying substance use disorder in the form of prescription medication miss use. May consider future urine tox screens. Ryan Ballard MD Sen Gomes MD - 05/04/2013 3:31 PM EST ESTABLISHED ADULT PATIENT OFFICE VISIT NOTE Time Spent: 30 minutes Attendee(s): Patient This patient was seen with Dr. Farrukh Ballard. See his note for confirmatory and/or revisionary documentation. HISTORY Chief Complaint: Mahin Ramos is a 57 y.o. Male presents today with anxiety and depression HPI: () Mr. Ramos is a 57 yo male w/ h/o depression, anxiety, and ADHD. Since last seen, the patient notes that he has been accused of violating his pain contract and no longer being prescribed methadone or methylphenidate by GI. While the patient notes that this is 2/2 two missed appointments, it appears that urine screens were negative for both methadone and methylphenidate. He reports that since no longer being prescribed methadone he has been taking pills he had previously stored around his house. He denies diverting the medications, and also denies taking other than prescribed. He also denies any illicit drugs or alcohol. Mr. Ramos notes that his mood has been worse since stopping methadone, mainly 2/2 increased pain. He reports some difficulty with sleep 2/2 pain, as well as decreased concentration since stopping methylphenidate. He denies any thoughts of harm to himself or others. He reports that he has an appointment in early May to establish care with a new PCP, and then plans to establish with a new pain clinic. Current psychotropic medications: Bupropion XL 300 mg PO Daily Diazepam 5 mg PO TID PRN anxiety Current Medications: Current Outpatient Prescriptions on File Prior to Visit Medication Sig Dispense Refill ??? buPROPion (WELLBUTRIN XL) 300 mg 24 hr tablet TAKE ONE TABLET BY MOUTH EVERY MORNING 30 tablet 5 ??? [DISCONTINUED] methadone (DOLOPHINE) 10 mg tablet Take 4 tablets by mouth 4 times daily. Refill due date 03/03/[address] Bergman; script handed to pt on 03/02/13 224 tablet 0 ??? [DISCONTINUED] methylphenidate (RITALIN) 20 mg tablet Take 1 tablet by mouth 4 times daily. Refill due on 03/03/[address] Bergman Indications: Attention-Deficit Hyperactivity Disorder 112 tablet 0 ??? multivitamin (THERAGRAN) tablet Take 1 tablet by mouth daily. ??? atenolol (TENORMIN) 50 mg tablet Take 1 tablet by mouth 2 times daily. 90 tablet 3 ??? famotidine (PEPCID) 20 mg tablet Take 1 tablet by mouth 2 times daily. 60 tablet 12 ??? amlodipine (NORVASC) 5 mg tablet Take 1 tablet by mouth daily. 90 tablet 3 Pertinent Medication Side Effects: Denies Review of Systems: (05/13/09) Constitutional: reports mild fatigue Musculoskeletal: Endorses increased pain since stopping methadone Psychiatric: See HPI above Allergic/Immunological: See reviewed allergies PFSH: () Past Medical/Psychiatric History: - Past diagnoses: MDD, ADHD, Chronic Pain, EtOH Dependence, Anxiety D/O NOS, h/o Opioid Dependence. 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 Currently on disability, worked in [employer]. Still helping son w/ mowing some lawns. EXAM [10/18/13 bullets (incl VS)] Constitutional System ?? Vital Signs: Blood pressure 162/93, pulse 83. Musculoskeletal System ?? Muscle Strength/Tone (note atrophy, abnormal movements): No abnormal movements noted ?? Gait and Station: Moderately dysarthric gait 2/2 pain Psychiatric System ?? General Appearance/Behavior: Casually dressed ?? Speech: Slow with normal volume/tone ?? Thought Process: Linear and logical ?? Associations: Intact ?? Abnormal Thoughts and Perceptions / Thought Content: Homicidality / Violent Thoughts: Denies Suicidality: Denies Hallucinations: Denies Delusions: Denies Obsessions: Denies ?? Judgment and Insight: good ?? Mood & Affect: Moderate depression w/ constricted affect ?? Orientation: AAOx4 ?? Attention/Concentration: Appropriate ?? Memory: Remote and recent memory intact ?? Language: fluent Kosovan ?? Fund of Knowledge: Grossly intact MEDICAL DECISION MAKING ASSESSMENT: Mahin Ramos is a 57 y.o. Male with depression and anxiety who reports increased depression since violating his pain contract and no longer being prescribed methadone. Despite worsened mood, this appears quite situational in the context to no longer taking methadone and methylphenidate, a nd thus will not make changes to his mediation regimen at this time as it had appeared fairly stableat the previous visit. There is significant concern for diversion given that toxicology screen showed no tract of methadone or methylphenidate in his urine. At this point his past diagnosis of ADHD is s omewhat unclear, and thus have recommended that he undergo more formalized neuropsychological testing prior to additional treatment. If he does meet ADHD criteria, will likely try non-stimulant treatments based on his age, hypertension, and potential for abuse. Have agreed to continue to prescribe riggins epam at this time, though will plan to perform UDS at next appointment, and also consider random screening in the future. The patient is not at an acute risk for harm to himself or others. PLAN: - Continue Bupropion XL 300 mg PO Daily - Continue Diazepam 5 mg PO TID PRN anxiety - Referral for neuropathological testing to confirm past diagnosis of ADHD - Continue to utilize reframing and relaxation techniques - RTC in 3 months documented in this encounter Plan of Treatment Upcoming Encounters Date Type Specialty Care Team Description 12/11/2021 Appointment Radiology 12/11/2021 Office Visit Orthopaedics Marion Tavera APRN [facility] ORTHOPAEDIC SURG [place], [place] [address] (Wo rk) 01/15/2022 Appointment Radiology Stiven Cervantes MD [facility] Pulmonary Medici [place], [place] [address] (Wo rk) Scheduled Procedures Name Priority Associated Diagnoses Date/Time DEBRIDEMENT SKIN, SUBCU, MUSCLE, R great toe amp utation, wound LOWER EXTREMITY (WRVU 2.7) closure MODIFIER WOUND VAC R great toe amputation, wound closure Scheduled Referrals Name Type Priority Associated Diagnoses Order S chedule Referral to Outpatient Routine Attention deficit Ordered: Neuropsychology Referral hyperactivity 05/04/2013 disorder (ADHD) documented as of this encounter Visit Diagnoses Diagnosis Major depressive disorder, recurrent epi sode, moderate - Primary Attention deficit hyperactivity disorder (ADHD) Attention deficit disorder with hyperact ivity documented in this encounter Care Teams Professor Of Business Relationship Specialty Start Date End Date Unknown PCP - General 04/21/13 11/18/13 None documented as of this encounter
--- OUTSIDE RECORDS SUMMARY | 2021-11-30 08:26 | XMS_ITS | Encounter Summary ---
:1955 Author Organization [facility] [place] [address] Care Team Providers Name Role Phone Brian Fall APRN Primary Care Provider Reason for Visit Reason Comments Medication Refill Encounter Details Date Type Department Care Team Description 05/14/2014 Refill Psychiatry and Behavioral Sen Gomes MD [facility] Jenni hammer [place] [address] [place] [address] [phone] (Wo rk) Social History Tobacco Use Types [...] Appointment Radiology 12/11/2021 Office Visit Orthopaedics Marion Tavear APRN [facility] DR ORTHOPAEDIC SURG [place], [place] [address] (Wo rk) 01/15/2022 Appointment Radiology Atkins, Stiven T , MD [facility] Pulmonary [place], [place] [address] (Wo rk) Scheduled Procedures Name [...] documented as of this encounter Care Teams Laydown Machine Operator Relationship Specialty Start Date End Date Brian Fall APRN PCP - General Internal Medicine 04/07/[address] [place] [phone] documented as of this encounter
--- OUTSIDE RECORDS SUMMARY | 2021-11-30 08:26 | XMS_ITS | Encounter Summary ---
:1955 Author Organization [place] [address] Care Team Providers Name Role Phone Eli Bergman MD Primary Care Provider Encounter Details Date Type Department Care Team Description 02/09/2013 Notes Only Internal Medicine at [facility] Vidhya Puckett, [place] [phone] Social History Tobacco Use Types Packs/Day [...] encounter Progress Notes Vidhya Puckett, RN - 02/09/2013 10:02 AM EDT Methadone 10 mg tabs #224 q14 days Refill Due 02/17 every 2 weeks Written on 02/09 Mail Refill Due next 03/03 Generate on 02/22 [facility] documented in this encounter Plan of Treatment Upcoming Encounters Date Type Specialty Care Team Description 12/11/2021 Appointment Radiology 12/11/2021 Office Visit Orthopaedics Marion Tavera APRN [facility] DR ORTHOPAEDIC SURG [place], [place] [address] (Wo rk) 01/15/2022 Appointment Radiology Stiven Cervantes MD [facility] Pulmonary Medici [place], [place] [address] (Wo rk) Scheduled Procedures Name Priority Associated Diagnoses Date/Time DEBRIDEMENT SKIN, SUBCU, MUSCLE, R great toe amp utation, wound LOWER EXTREMITY (WRVU 2.7) closure MODIFIER WOUND VAC R great toe amputation, wound closure documented as of this encounter Visit Diagnoses Not on filedocumented in this encounter Care Teams Pyrometer Mechanic Relationship Specialty Start Date End Date Eli Bergman MD PCP - General 11/21/11 04/20/13 [facility] GENER[facility] INTERNAL MEDIC[place] [address] documented as of this encounter
--- OUTSIDE RECORDS SUMMARY | 2021-11-30 08:26 | XMS_ITS | Encounter Summary ---
:1955 Author Organization [facility] [place] [address] Care Team Providers Name Role Phone Eli Bergman MD Primary Care Provider Encounter Details Date Type Department Care Team Description 03/23/2013 Telephone Internal Medicine at [facility] Vidhy[place] Puckett, [place] [address] Social History Tobacco Use Types Packs/Day [...] Telephone Encounter - Vidhya Puckett RN - 03/23/2013 3:11 PM EST Mr Ramos called requesting copy of opioid agreement signed on 01/05/13 Copy mailed to pt today documented in this encounter Plan of Treatment Upcoming Encounters Date Type Specialty Care Team Description 12/11/2021 Appointment Radiology 12/11/2021 Office Visit Orthopaedics Marion Tavera , LABELING SPECIALIST [facility] ORTHOPAEDIC SURG [place], [place] [address] (Wo rk) 01/15/2022 Appointment Radiology Stiven Cervantes MD [facility] Pulmonary Medici [place], [place] [address] (Wo rk) Scheduled Procedures Name Priority Associated Diagnoses Date/Time DEBRIDEMENT SKIN, SUBCU, MUSCLE, R great toe amp utation, wound LOWER EXTREMITY (WRVU 2.7) closure MODIFIER WOUND VAC R great toe amputation, wound closure documented as of this encounter Visit Diagnoses Not on filedocumented in this encounter Care Teams Director Of Casework Department Relationship Specialty Start Date End Date Eli Bergman MD PCP - General 11/21/11 04/20/13 [facility] [place] [address] documented as of this encounter
--- OUTSIDE RECORDS SUMMARY | 2021-11-30 08:26 | XMS_ITS | Encounter Summary ---
:1955 Author Organization [facility] [place] [address] Care Team Providers Name Role Phone Eli Bergman MD Primary Care Provider Encounter Details Date Type Department Care Team Description 03/02/2013 Orders Only Internal Medicine at Christina Bergman MD Opiate dependence [facility] (Primary Dx) [facility] [address] [place] [address] [phone] (Wo rk) Social History Tobacco Use Types [...] [facility] DR ORTHOPAEDIC SURG [place], [place] [address] (Wo rk) 01/15/2022 Appointment Radiology Stiven Cervantes MD [facility] er Dr Carlos Dumont [place] [phone] (Wo rk) Scheduled Procedures Name Priority Associated Diagnoses Date/Time DEBRIDEMENT SKIN, SUBCU, MUSCLE, R great toe amp utation, wound LOWER EXTREMITY (WRVU 2.7) closure MODIFIER WOUND VAC R great toe amputation, wound closure documented as of this encounter Results Miscellaneous Lab request (03/02/2013 3:00 PM EDT) [facility] Directions Method Time Signature Mis Lab Request CERNER Result received in [facility] lab. Specimen Anatomical Collection Method Collection Time Receive d Time (Source) Location / / Volume Laterality Specimen of 03/02/2013 3:00 PM 3 3:57 unknown material EDT PM EDT (specimen) Linn Finney MD HEMATOLOGY ORDERABLES Performing Organization Address City/State/[place] [address] [facility] Benzodiazepine, Urine Quantitative (03/02/2013 3:00 PM EDT) [facility] Time Signature U Benzo Conf CERNER Test ?Result ?? Flag ??Unit ?? RefValue [facility] Drug of Abuse, Benzo Conf, U ??GC/MS Confirmation - ?Positive ?Benzodiazepine ??Lorazepam ? Negative ? ng/mL ?? Cutoff: <100 ??Nordiazepam ? Negative ? ng/mL ??C utoff: <100 ??Oxazepam ?189 ?ng/mL ??Cutoff: <100 ??Temazepam ? Negative ? ng/mL ?? Cutoff: <100 ??JH-Cvjxg-Lvvlwybien ? Negative ? ng/mL ??Cutof f: <100 ??3-IF-Dksyyexesi ? Negative ? ng/mL ??Cut off: <100 ??4-BB-Abqbljdptmqzj ?Negative ? ng/mL ??Cuto ff: <50 ??Alpha [place]-Alprazolam ? Negative ? ng/mL ??Cutof f: <100 ??Mogbt-GU-Npxohceuo ?Negative ? ng/mL ??Cuto ff: <100 This report is intended for use in clinical monitoring and management of patients. It is not intended for use in employment-related drug testing. Test Performed by: [place] [address] Lead Handler: Berna Martino, Ph.D. Specimen Anatomical Collection Method Collection Time Receive d Time (Source) Location / / Volume Laterality Urine specimen 03/02/2013 3:00 PM 013 4:11 (specimen) EDT PM EDT Resulting Agency Comment Spec In Lab Linn Finney MD URINE ORDERABLES Performing Organization Address [facility]/State/[place] [address] [facility] Drug Screen with Confirmation, Urine (03/02/2013 3:00 PM EDT) Component Value Ref Test Analysis Performed At [facility] gist Range Method Time Signature U [...] in employment-related drug testing. Test Performed by: [place] [address] Lead Handler: Berna Martino, Ph.D. Specimen Anatomical Collection Method Collection Time Receive d Time (Source) Location / / Volume Laterality Urine specimen 03/02/2013 3:00 PM 013 4:11 (specimen) EDT PM EDT Resulting Agency Comment Spec In Lab Linn Finney MD URINE ORDERABLES Performing Organization Address City/State/[facility] [place] [address] [facility] documented in this encounter Visit Diagnoses Diagnosis Opiate dependence - Primary Opioid type dependence, unspecified documented in this encounter Care Teams Training And Development Officer Relationship Specialty Start Date End Date Eli Bergman MD PCP - General 11/21/11 04/20/[address] [facility] [address] [address] documented as of this encounter
--- OUTSIDE RECORDS SUMMARY | 2021-11-30 08:26 | XMS_ITS | Encounter Summary ---
:1955 Author Organization [facility] [place] [address] Care Team Providers Name Role Phone Eli Bergman MD Primary Care Provider Encounter Details Date Type Department Care Team Description 01/14/2013 Hospital Encounter G[place]ology [place] [facility] James Aiken MD [facility] [address] GASTROENTER[place] [address] [facility] Trudy Nagel MD [facility] [place] [address] [place] [address] Social History Tobacco Use Types Packs/Day [...] Sign Reading Time Taken Comments Blood Pressure 123/87 01/14/2013 9:09 AM EDT Pulse 63 01/14/2013 8:50 AM EDT Temperature 36.7 ??C (98.1 ??F) 01/14/2013 8:05 AM EDT Respiratory Rate 16 01/14/2013 8:54 AM EDT Oxygen Saturation 94% 01/14/2013 8:50 AM EDT Inhaled Oxygen Concentration - - Weight 97.1 kg (214 lb) 01/14/2013 8:05 AM EDT Height 175.3 cm (5' 9) 01/14/2013 8:05 AM EDT Body Mass Index 31.6 01/14/2013 8:05 AM EDT documented in this encounter Discharge Instructions Discharge InstructionsRaMarti murillo RN - 01/14/2013 8:52 AM EDT You may have received medications before and/or during your procedure which effects judgement and reaction time. Do not drive, operate machinery, drink alcoholic beverages or make important decisions for 24 hours. Be careful on stairs as you may be unsteady on your feet. You may eat a regular diet as tolerated. Do not smoke if you are alone. IV site-- slight redness or tenderness is normal. You may use a warm compress. If tenderness and redness increases or foul drainage occurs, please contact your MD/ Please call [phone] before 5pm with problems, questions or concerns. After 5pm call [phone] and ask to speak with the organ fixer information operator. Discharge instructions reviewed with patient who expresses understanding. AttachmentsThe following attachments cannot be sent through Care Everywhere. UPPER GI ENDOSCOPY: WHAT TO EXPECT AT HOME (UPPER SORBIAN)documented in this encounter Medications at Time of Discharge Medication Sig Dispensed Refills Start Date End Date multivitamin Take 1 tablet by 0 08/21/2012 (THERAGRAN) tablet mouth daily. methadone (DOLOPHINE) Take 4 tablets by 224 tablet 0 013 01/27/2013 10 mg mouth 4 times daily. tabletIndications: Pain methylphenidate Take 1 tablet by 112 tablet 0 01/05/2013 (RITALIN) 20 mg mouth 4 times daily. tabletIndications: Signed in the absence attention-deficit Dr Bergman hyperactivity disorder Indications: Attention-Deficit Hyperactivity Disorder diaZEPam (VALIUM) 5 [...] documented as of this encounter H&P Notes Britany Esteban MD - 01/14/2013 8:07 AM EDT Gastroenterology & Hepatology Pre-Procedure History and Physical Procedure: EGD Indication: screening varices Mahin Ramos is chronic hepatitis C w/early cirrhosis; viral load (02/16) 234,000 IU/ml; genotype:2br 48 weeks of treatment with peg and ribavirin however relapse, b/l hip replacement for avascular necrosis, herniated disc on methadone, ETOH abuse currently sober present for screening varices. LastEGD 2009 with no evidence of portal HTN or varices. Will proceed with EGD Patient Active Problem List Diagnosis Code ??? Alcohol dependence 303.90 ??? Anixety D/O NOS 300.00 ??? ADHD NOS 314.9 ??? Chronic back pain 724.5 ??? Major depressive disorder, single episode, unspecified 296.20 ??? Hepatitis C 070.70 ??? Confusion 298.9 ??? Community acquired pneumonia 486 ??? Imbalance 781.2 Medications: Reviewed in EDH No Known Allergies Social History/Family History: Reviewed in EDH. No changes Exam: Filed Vitals: 01/14/13 0805 BP: 145/79 Pulse: 64 Temp: 36.7 ??C (98.1 ??F) Resp: 14 GEN: NAD, AAOX3 HEENT: NC/AT dryMM, anicteric Chest: CTAB Heart: RRR, nl s1, s2 Abdomen: normal bowel sounds, soft, non tender Assessment and Plan: Proceed with EGD ASA Grade: ASA 3 - Patient with moderate systemic disease with functional limitations Sedation plan: Moderate Conscious sedation Risks and benefits of the procedure were discussed with the patient. Consent has been signed. Britany Esteban MD Gastroenterology Fellow documented in this encounter Miscellaneous Notes Miscellaneous - Provider, Scanning - 01/15/2013 11:15 PM EDT Miscellaneous - Provider, Scanning - 01/15/2013 11:14 PM EDT Miscellaneous - Provider, Scanning - 01/14/2013 3:21 PM EDT OR Attestation - Trudy Bowden MD - 01/14/2013 8:50 AM EDT Attestation: Case Date: 01/14/2013 As the attending physician, I was personally present for the entire procedure. TRUDY BOWDEN MD 01/14/2013 documented in this encounter Plan of Treatment Upcoming Encounters Date Type Specialty Care Team Description 12/11/2021 Appointment Radiology 12/11/2021 Office Visit Orthopaedics Marion Tavera APRN [facility] ER ORTHOPAEDIC SURG [place], [place] [address] (Wo rk) 01/15/2022 Appointment Radiology Stiven Cervantes MD [facility] er Pulmonary Medici [place], [place] [address] (Wo rk) Scheduled Procedures Name Priority Associated Diagnoses Date/Time DEBRIDEMENT SKIN, SUBCU, MUSCLE, R great toe amp utation, wound LOWER EXTREMITY (WRVU 2.7) closure MODIFIER WOUND VAC R great toe amputation, wound closure documented as of this encounter Procedures Procedure Name Priority Date/Time Associated Diagnosis Comme nts EGD, UPPER GI 01/14/2013 8:32 AM Chronic hepat itis C ENDOSCOPY EDT Cirrhosis of liver UPPER GI ENDOSCOPY Routine 01/14/2013 8:18 AM Res ults for this EDT procedure are i n the results section. documented in this encounter Results UPPER GI ENDOSCOPY (01/14/2013 8:18 AM EDT) [facility] gist Method Time Signature UPPER GI [facility] ENDOSCOPY Endoscopy Patient Name: Mahin Ramos ? Procedure Date: 01/14/2013 8:18 AM ? Date of : 1955 ? Age: 57 ? Order #: [id number] ? Procedure: ? Upper GI endoscopy Indications: ? Cirrhosis with suspected esophageal ? varices Providers: ? Truyd Bowden MD, Alvin Castillo, ? Padmini Yun RN, Citlaly Jacobo ? Bruno, Heel Finisher Referring MD: ?Caitlin Greenberg MD Medicines: ? Propofol per Anesthesia Complications: ? No immediate complications. Procedure: ? Pre-Anesthesia Assessment: ? - Prior to the procedure, a H istory ? and Physical was performed, a nd ? patient medications, allergie s and ? sensitivities were reviewed. The ? patient's tolerance of previo us ? anesthesia was reviewed. ? - The risks and benefits of t he ? procedure and the sedation op tions ? and risks were discussed with the ? patient. All questions were a nswered ? and informed consent was obta ined. ? The procedure, indications, b enefits, ? risks and alternatives were e xplained ? to the patient. Specifically ? discussed were potential ? complications including, but not ? limited to, bleeding, perfora tion, ? infection, missing a cancer, and ? adverse medication reactions. The ? Endoscope was introduced thro h the ? mouth, and advanced to the ga stric ? cardia. The patient tolerated the ? procedure well. The upper GI ? endoscopy was accomplished wi [facility] ? difficulty. The patient mani ated the ? procedure well. ? Findings: ? There is no endoscopic evidence of varices in the ? entire esophagus. ? There was a small amount refluxed food in the mid ? esophagus. ? A large amount of food (residue) was found in the ? entire examined stomach. ? Due to the presence of food in the stomach, to avoid ? aspiration the procedure was stopped without ? examination of the stomach or duodenum. ? Impression: ?- A large amount of food (residue) in ? the stomach likely related to slow ? motility from narcotics. ? - No varices. Recommendation: ?Repeat study in 2-3 years to survey ? for varices, but if he develo ps ? symptoms of gastric outlet ? obstruction we should repeat sooner ? with a longer period of NPO s tatus ? prior to procedure. ? Trudy Bowden MD 01/14/2013 8:49 AM This report has been signed electronically. Number of Addenda: 0 Note Initiated On: 01/14/2013 8:18 AM Specimen (Source) Anatomical Collection Method Collection Time Re ceived Time Location / / Volume Laterality 01/14/2013 8:18 AM EDT Eli Bergman MD GENERAL SURGICAL ORDERABLES Performing Organization Address City/State/ZIP Code Phon e Number [place] documented in this encounter Visit Diagnoses Not on filedocumented in this encounter Active and Recently Administered Medications Times are shown in EDT. Continuous Medication Order 01/12/2013 01/13/2013 01/14/2013 sodium chloride 0.9% infusion (CANCELED) 0830 (Due)0831 (New Bag - Provider: Tyson Weiner CRNA)0843 (Anesthesia Volume Adjustment - Provider: Tyson Weiner CRNA) 30 mL/hr, at 30 mL/hr, Intravenous, CONT INUOUS, Starting Christina 01/14/13 at 0830, Until Christina 01/14/13 at 1149, Endo (Day of Procedure) documented in this encounter Care Teams Boat Dock Operator Relationship Specialty Start Date End Date Eli Bergman MD PCP - General 11/21/11 04/20/13 [facility] GENERAL [place] [address] documented as of this encounter
--- OUTSIDE RECORDS SUMMARY | 2021-11-30 08:26 | XMS_ITS | Encounter Summary ---
:1955 Author Organization [facility] [place] [address] Care Team Providers Name Role Phone Unknown Primary Care Provider Unavailable Reason for Visit Reason Onset Date Comments Other 03/04/2013 Encounter Details Date Type Department Care Team Description 03/04/2013 Telephone [place] [facility] [place] [facility]cl[facility] [place] [address] Social History Tobacco Use Types Packs/Day Years [...] Telephone Encounter - Cari Barclay RN - 03/04/2013 2:45 PM EDT Patient called to speak with Dr. Bergman, returning her appointment. Also, he discussed doing his floor and in a lot of pain in his shoulder and upper arm. documented in this encounter Plan of Treatment Upcoming Encounters Date Type Specialty Care Team Description 12/11/2021 Appointment Radiology 12/11/2021 Office Visit Orthopaedics Marion Tavera APRN [facility] ER DR ORTHOPAEDIC SURG [place], [place] [address] (Wo rk) 01/15/2022 Appointment Radiology Stiven Cervantes MD [facility] Pulmonary Medici [place], [place] [address] (Wo rk) Scheduled Procedures Name Priority Associated Diagnoses Date/Time DEBRIDEMENT SKIN, SUBCU, MUSCLE, R great toe amp utation, wound LOWER EXTREMITY (WRVU 2.7) closure MODIFIER WOUND VAC R great toe amputation, wound closure documented as of this encounter Visit Diagnoses Not on filedocumented in this encounter Care Teams Straddle Bug Operator Relationship Specialty Start Date End Date Unknown PCP - General 04/21/13 11/18/13 None documented as of this encounter
--- OUTSIDE RECORDS SUMMARY | 2021-11-30 08:26 | XMS_ITS | Encounter Summary ---
:1955 [place] [address] Care Team Providers Name Role Phone Brian Fall APRN Primary Care Provider Reason for Visit Reason Comments Medication Refill Encounter Details Date Type Department Care Team Description 07/24/2013 Refill Internal Medicine at [facility] Eli Bergman MD [facility] [place] [address] GENERAL INTERNAL MEDICINE [phone] [place], [place] [address] (Wo rk) Social History Tobacco [...] APRN [facility] DR ORTHOPAEDIC SURG [place], [place] [address] (Wo rk) 01/15/2022 Appointment Radiology Stiven Cervantes MD [facility] er Pulmonary [place], [place] [address] (Wo rk) Scheduled Procedures Name [...] documented as of this encounter Care Teams Optometrist Owner Relationship Specialty Start Date End Date Brian Fall APRN PCP - General Internal Medicine 04/07/[address] [place] [id number] documented as of this encounter
--- OUTSIDE RECORDS SUMMARY | 2021-11-30 08:26 | XMS_ITS | Encounter Summary ---
:1955 Author Organization [facility] [place] [address] Care Team Providers Name Role Phone Eli Bergman MD Primary Care Provider Encounter Details Date Type Department Care Team Description 02/18/2013 Notes Only Internal Medicine at [facility] [address] Social History Tobacco Use Types Packs/Day [...] encounter Progress Notes Vidhya Puckett, RN - 02/18/2013 10:13 AM EDT Refill Due 03/03 Written on 02/18 Mail on 02/24 Next refill due 03/31 Generate on 03/22 Ritalin 20mg 4 x day 28 days # 112 Methadone 10 mg tabs #224 q14 days Refill Due 03/03 every 2 weeks Written on 02/18 Mail 02/24 Refill Due next 03/17 Generate on 03/08 Dee Dee Phipps [place] documented in this encounter Plan of Treatment Upcoming Encounters Date Type Specialty Care Team Description 12/11/2021 Appointment Radiology 12/11/2021 Office Visit Orthopaedics Marion Tavera APRN [facility] ORTHOPAEDIC SURG [place], [place] [address] (Wo rk) 01/15/2022 Appointment Radiology Stiven Cervantes MD [facility] Pulmonary Medici [place], [place] [address] (Wo rk) Scheduled Procedures Name Priority Associated Diagnoses Date/Time DEBRIDEMENT SKIN, SUBCU, MUSCLE, R great toe amp utation, wound LOWER EXTREMITY (WRVU 2.7) closure MODIFIER WOUND VAC R great toe amputation, wound closure documented as of this encounter Visit Diagnoses Not on filedocumented in this encounter Care Teams Transmission Inspector Relationship Specialty Start Date End Date Eli Bergman MD PCP - General 11/21/11 04/20/13 [facility] [place] [address] documented as of this encounter
--- OUTSIDE RECORDS SUMMARY | 2021-11-30 08:26 | XMS_ITS | Encounter Summary ---
:1955 Author Organization [facility] [place] [address] Care Team Providers Name Role Phone Eli Bergman MD Primary Care Provider Encounter Details Date Type Department Care Team Description 01/29/2013 Telephone Internal Medicine at [facility] [place] [address] Social History Tobacco Use Types Packs/Day [...] Telephone Encounter - Vidhya Puckett RN - 02/12/2013 10:58 AM EDT Opened in error documented in this encounter Plan of Treatment Upcoming Encounters Date Type Specialty Care Team Description 12/11/2021 Appointment Radiology 12/11/2021 Office Visit Orthopaedics Marion Tavera APRN [facility] DR ORTHOPAEDIC SURG [place], [place] [address] (Wo rk) 01/15/2022 Appointment Radiology Stiven Cervantes MD [facility] Pulmonary Medici ne [place], [place] [address] (Wo rk) Scheduled Procedures Name Priority Associated Diagnoses Date/Time DEBRIDEMENT SKIN, SUBCU, MUSCLE, R great toe amp utation, wound LOWER EXTREMITY (WRVU 2.7) closure MODIFIER WOUND VAC R great toe amputation, wound closure documented as of this encounter Visit Diagnoses Not on filedocumented in this encounter Care Teams Elementary School Teacher Relationship Specialty Start Date End Date Eli Bergman MD PCP - General 11/21/11 04/20/13 [facility] [place] [address] documented as of this encounter
--- OUTSIDE RECORDS SUMMARY | 2021-11-30 08:26 | XMS_ITS | Encounter Summary ---
:1955 Author Organization [facility] [place] [address] Care Team Providers Name Role Phone Eli Bergman MD Primary Care Provider Encounter Details Date Type Department Care Team Description 01/14/2013 Surgery Gastroenterology at [facility] [place] Trudy Bowden MD EGD, [facility]PPER GI [facility] [place] [address] [address] [phone] GASTROENTEROLOGY [place], [place] [address] Social History Tobacco Use Types [...] occurs, please contact your MD/ Please call [phone] before 5pm with problems, questions or concerns. After 5pm call [phone] and ask to speak with the real time trader technical operations manager. Discharge instructions reviewed with patient who expresses understanding. AttachmentsThe following attachments cannot be sent through Care Everywhere. UPPER GI ENDOSCOPY: WHAT TO EXPECT AT HOME (KYRGYZ)documented in this encounter Medications at Time of [...] [facility] ORTHOP[facility] SURG [place], [place] [address] (Wo rk) 01/15/2022 Appointment Radiology Stiven Cervantes MD [facility] Pulmonary Medici [place], [place] [address] (Wo rk) Scheduled Procedures Name [...] UPPER GI ENDOSCOPY (01/14/2013 8:18 AM EDT) [facility] Method Time Signature UPPER GI [facility] ENDOSCOPY Endoscopy Patient Name: Mahin Ramos ? Procedure Date: 01/14/2013 8:18 AM ? N: [id number] ? Date of : 1955 ? Age: 57 ? Order #: [id number] ? Procedure: ? Upper GI endoscopy Indications: ? Cirrhosis with suspected esophageal ? varices Providers: ? Trudy Bowden MD, Alvin Castillo, ? Padmini Yun RN, Citlaly Jarquin. ? Bruno, Seo Coordinator Referring MD: ?Caitlin Greenberg MD Medicines: ? [...] upper GI ? endoscopy was accomplished wi [facility] ? difficulty. The patient mani ated [...] of h epatic coma Cirrhosis of liver Cirrhosis of liver without mention of al cohol documented in this encounter Active and Recently [...] Procedure) documented in this encounter Care Teams Sound Effects Manager Relationship Specialty Start Date End Date Eli Bergman MD PCP - General 11/21/11 04/20/[address] [facility] [address] [place] [address] documented as of this encounter
--- OUTSIDE RECORDS SUMMARY | 2021-11-30 08:26 | XMS_ITS | Encounter Summary ---
:1955 Author Organization [facility] [place] [address] Care Team Providers Name Role Phone Eli Bergman MD Primary Care Provider Encounter Details Date Type Department Care Team Description 03/10/2013 Telephone [place] [facility] [place]uckett, [place] [address] Social History Tobacco Use Types Packs/Day [...] Telephone Encounter - Vidhya Puckett RN - 03/10/2013 2:27 PM EDT Called pt to ask him to bring the following medications with him to appt Dr Bergman tomorrow Methadone Valium Ritalin No answer Message left on voice mail documented in this encounter Plan of Treatment Upcoming Encounters Date Type Specialty Care Team Description 12/11/2021 Appointment Radiology 12/11/2021 Office Visit Orthopaedics Marion Tavera APRN [facility] ER ORTHOPAEDIC SURG [place], [place] [address] (Wo rk) 01/15/2022 Appointment Radiology Stiven Cervantes MD [facility] Pulmonary Medici [place], [place] [address] (Wo rk) Scheduled Procedures Name Priority Associated Diagnoses Date/Time DEBRIDEMENT SKIN, SUBCU, MUSCLE, R great toe amp utation, wound LOWER EXTREMITY (WRVU 2.7) closure MODIFIER WOUND VAC R great toe amputation, wound closure documented as of this encounter Visit Diagnoses Not on filedocumented in this encounter Care Teams Navy Material Inspector Relationship Specialty Start Date End Date Eli Bergman MD PCP - General 11/21/11 04/20/13 [facility] GENERAL [place] [address] documented as of this encounter
--- OUTSIDE RECORDS SUMMARY | 2021-11-30 08:26 | XMS_ITS | Encounter Summary ---
:1955 Author Organization [facility] Address [facility] [place] [address] Care Team Providers Name Role Phone Eli Bergman MD Primary Care Provider Reason for Visit Reason Comments Follow-up Encounter Details Date Type Department Care Team Description 03/17/2013 Follow-Up Internal Medicine at Christina Bergman MD Medication monitoring [facility] encounter (Primary Dx) [facility] [address] [place] [address] MEDICINE [phone] [place], [place] [address] (Wo rk) Social History Tobacco [...] Sign Reading Time Taken Comments Blood Pressure 160/91 03/17/2013 3:26 PM EST Pulse 70 03/17/2013 3:26 PM EST Temperature 36.8 ??C (98.2 ??F) 03/17/2013 3:26 PM EST Respiratory Rate 20 03/17/2013 3:26 PM EST Oxygen Saturation - - Inhaled Oxygen Concentration - - Weight 94.3 kg (208 lb) 03/17/2013 3:26 PM EST Height 175.3 cm (5' 9) 03/17/2013 3:26 PM EST Body Mass Index 30.72 03/17/2013 3:26 PM EST documented in this encounter Progress Notes Eli Bergman - 03/18/2013 10:53 PM EST History of Present Illness Mr. Mahin Ramos is a 57 yo male with chronic pain on methadone, ritalin for ADHD, and valium for anxiety. He was asked to come to clinic to discuss the results of his urine drug screen which was negative for methadone and ritalin. The patient reports he has been taking his methadone regularly but he is not surprised that the ritalin was negative as he has not been taking it regularly. He reports he has been taking valium every morning and still has valium left. It was discussed with the patient that I could no longer prescribe him these controlled substances (methadone, ritalin, valium) given his urine drug screen results. He was asked to taper off his valium. He was offered a referral to the pain center for non-opoid options for pain control; however, the patient declined. He was also offered the option of continuing care with me but that I would not prescribe controlled substances for him. The patient declined to continue his care with me. He wanted to seek care elsewhere as he could not be w ithout opiate pain medications. Pain Clinic Drug Screen, 03/02/13 U Amphetamines: Negative ng/mL Barbiturates: Negative ng/mL Benzodiazepines: Positive ng/mL Cocaine Metabolite: Negative ng/mL Methadone Negative ng/mL Opiates Negative ng/mL Phencyclidine Negative ng/mL Propoxyphene Negative ng/mL Tetrahydrocannabinols Negative ng/mL Ethanol Negative mg/dL Drug of Abuse, Benzo Conf, U, 03/02/13 GC/MS Confirmation - Positive Benzodiazepine Lorazepam: Negative ng/mL Cutoff: <100 Nordiazepam: Negative ng/mL Cutoff: <100 Oxazepam: 189 ng/mL Cutoff: <100 Temazepam: Negative ng/mL Cutoff: <100 UB-Rcvho-Pxguxhlzdj: Negative ng/mL Cutoff: <100 0-BW-Tjjtnidpul: Negative ng/mL Cutoff: <100 9-GP-Suhipiywvovcb: Negative ng/mL Cutoff: <50 Alpha OH-Alprazolam: Negative ng/mL Cutoff: <100 Njvqx-BM-Tmwmhbids: Negative ng/mL Cutoff: <100 Methylphenidate and Metabolite, Urine, 03/02/13 Methylphenidate: None detected Ritalinic acid: None detected Brittani Nunez MD - 03/17/2013 4:24 PM EST I have seen the patient and reviewed the resident's above history and I agree with the details as written. The assessment and plan were formulated in discussion with me and I agree with them as documented. Pertinent History: Pt seen with resident Was asked to come to discuss is Urine drug screen that was negative for methadone and ritalin Pt states was not surprised that ritalin was negative however he has been getting regular rx's Previous screens looks like decreased amt over time of methadone Has valium left-asked he taper down on this as well Offered pt referral to pain center for non opiate options for pain control-pt deferred Offered to cont to care for patient without rx of controlled substances due to lack of ritalin and methadone on his screens After office visit pt left saying he would get his care elsewhere due to would not do without opiatepain medicaitons documented in this encounter Plan of Treatment Upcoming Encounters Date Type Specialty Care Team Description 12/11/2021 Appointment Radiology 12/11/2021 Office Visit Orthopaedics Marion Tavera APRN [facility] ORTHOPAEDIC SURG [place], [place] [address] (Wo rk) 01/15/2022 Appointment Radiology Stiven Cervantes MD [facility] Pulmonary Medici nelly [place], [place] [address] (Wo rk) Scheduled Procedures Name Priority Associated Diagnoses Date/Time DEBRIDEMENT SKIN, SUBCU, MUSCLE, R great toe amp utation, wound LOWER EXTREMITY (WRVU 2.7) closure MODIFIER WOUND VAC R great toe amputation, wound closure documented as of this encounter Visit Diagnoses Diagnosis Medication monitoring encounter - Primar y Encounter for therapeutic drug monitorin g documented in this encounter Care Teams Lacquer Pin Press Operator Relationship Specialty Start Date End Date Eli Bergman MD PCP - General 11/21/11 04/20/13 [facility] GENERAL [place] [address] documented as of this encounter
--- OUTSIDE RECORDS SUMMARY | 2021-11-30 08:26 | XMS_ITS | Encounter Summary ---
:1955 Author Organization [facility] Address [address] [place] [address] Care Team Providers Name Role Phone Eli Bergman MD Primary Care Provider Reason for Visit Reason Onset Date Comments Other 03/18/2013 Encounter Details Date Type Department Care Team Description 03/18/2013 Telephone [place] [facility] [place] Cari Irvin RN Other [facility] jaquelin [place] [address] [facility] [phone] [place] [phone] (Wo rk) Social History Tobacco Use Types [...] encounter Miscellaneous Notes Telephone Encounter - Cari Irvin RN - 03/18/2013 9:07 AM EST Mahin called and left a message this morning saying that there must be something wrong with his urine test. He says that the results are impossible as he has taken all the medication that he was given by the clinic. He said that maybe a nurse put water in the urine so the test are wrong. [facility]. Mr. Ramos called again to say that he has never abused any kind of medicine. He is sure that the nurse dropped the urine container on the floor and filledit with water. I offered him a appointment with his provider which he refused as he talked to her until he was blue in the face and did not have any success. I told him that I was sure that the urine was not dropped and water substituted. I again offered him a appointment which he declined. He saidthat the clinic was killing him because he cannot get him medicines. I told him that he could not get another script for narcotics as he broke the opioid contract. He said that no one went over it with him. I asked him if he signed it and he said that he did. I then told him that the doctor went over it with him in detail before he signed it. He then agreed that the doctor did go over it with him but that he doesn't remember that well. I told him to call back if he wanted to schedule a appointment with his doctor but that he would not be getting any narcotic's. He said that he understood. documented in this encounter Plan of Treatment Upcoming Encounters Date Type Specialty Care Team Description 12/11/2021 Appointment Radiology 12/11/2021 Office Visit Orthopaedics Marion Tavera APRN [facility] ORTHOPAEDIC SURG [place], [place] [address] (Wo rk) 01/15/2022 Appointment Radiology Stiven Cervantes MD [facility] Pulmonary Medici [place], [place] [address] (Wo rk) Scheduled Procedures Name Priority Associated Diagnoses Date/Time DEBRIDEMENT SKIN, SUBCU, MUSCLE, R great toe amp utation, wound LOWER EXTREMITY (WRVU 2.7) closure MODIFIER WOUND VAC R great toe amputation, wound closure documented as of this encounter Visit Diagnoses Not on filedocumented in this encounter Care Teams Director Game Relationship Specialty Start Date End Date Eli Bergman MD PCP - General 11/21/11 04/20/13 [facility] GENERAL [place] [address] documented as of this encounter
--- OUTSIDE RECORDS SUMMARY | 2021-11-30 08:27 | XMS_ITS | Encounter Summary ---
:1955 Author Organization [facility] Address [facility] [place] [address] Care Team Providers Name Role Phone Eli Bergman MD Primary Care Provider Encounter Details Date Type Department Care Team Description 01/05/2013 [place] [facility] [place] [address] [facility] [place] [phone] Social History Tobacco Use Types Packs/Day [...] by 0 08/21/2012 (THERAGRAN) tablet mouth daily. methylphenidate Take 1 tablet by 112 tablet 0 01/05/2013 (RITALIN) 20 mg mouth 4 times daily. tabletIndications: Signed in the absence attention-deficit Dr Bergman hyperactivity disorder Indications: Attention-Deficit Hyperactivity Disorder methadone (DOLOPHINE) Take 4 tablets by 224 tablet 0 013 01/13/2013 10 mg mouth 4 times daily. tabletIndications: Pain Signed in the absence Dr Bergman diaZEPam (VALIUM) 5 mg take 1 tablet by 90 tablet 2 013 05/04/2013 tablet mouth three times a day if needed for anxiety indomethacin (INDOCIN) Take 1 capsule by 60 capsule 1 201201/11/2013 50 mg mouth 3 times daily capsuleIndications: (with meals). Taper Gout off as symptoms improve. buPROPion (WELLBUTRIN Take 1 tablet by 30 tablet 5 10/07/19 13 04/13/2013 XL) 300 mg 24 hr tablet mouth every morning. moxifloxacin (AVELOX) Take 1 tablet by 5 tablet 0 08/22/19 13 01/14/2013 400 mg tablet mouth daily. atenolol (TENORMIN) 50 Take 1 tablet [...] APRN [facility] ORTHOPAEDIC SURG [place], [place] [address] (Wo rk) 01/15/2022 Appointment Radiology Stiven Cervantes MD [facility] Pulmonary Medici [place], [place] [address] (Wo rk) Scheduled Procedures Name Priority Associated Diagnoses Date/Time DEBRIDEMENT SKIN, SUBCU, MUSCLE, R great toe amp utation, wound LOWER EXTREMITY (WRVU 2.7) closure MODIFIER WOUND VAC R great toe amputation, wound closure documented as of this encounter Procedures Procedure Name Priority Date/Time Associated Diagnosis Comme nts XR CHEST PA AND Routine 01/05/2013 4:49 PM PNA (pneumonia) Res ults for this LATERAL EDT procedure are i n the results section. documented in this encounter Results XR chest routine PA & lateral (01/05/2013 4:49 PM EDT) Anatomical Region Laterality Modality Chest N/A Radiographic Imaging Specimen (Source) Anatomical Collection Method Collection Time Re ceived Time Location / / Volume Laterality 01/05/2013 4:49 PM EDT Narrative 01/07/2013 11:32 AM EDT Examination CHEST ROUTINE PA+LAT Clinical History PNA in 08/2012 Comparison 08/19/2012. Technique PA and lateral chest. Findings The previously seen right upper lobe pne umonia has resolved. ??There continues to be elevation of the right hemidiaphra gm. Left lung is clear. ??The cardiomediastinal silhouette is unremark able. ??No pneumothorax or pleural effusion. Impression ? 1. Interval resolution of right u pper lobe pneumonia. ? 2. Unchanged right elevated hemid iaphragm. Film and interpretation reviewed by the attending Procedure Note Bridgette Davies MD - 01/07/2013Formatt ing of this note might be different from the original. Examination CHEST ROUTINE PA+LAT Clinical History PNA in 08/2012 Comparison 08/19/2012. Technique PA and lateral chest. Findings The previously seen right upper lobe pne umonia has resolved. There continues to be elevation of the right hemidiaphra gm. Left lung is clear. The cardiomediastinal silhouette is unremark able. No pneumothorax or pleural effusion. Impression 1. Interval resolution of right upper l obe pneumonia. 2. Unchanged right elevated hemidiaphra gm. Film and interpretation reviewed by the attending Chris Monae MD IMG DX ORDERABLES documented in this encounter Visit Diagnoses Diagnosis PNA (pneumonia) Pneumonia, organism unspecified documented in this encounter Care Teams Home Maker Relationship Specialty Start Date End Date Eli Bergman MD PCP - General 11/21/11 04/20/13 [facility] GENERAL [place] [address] documented as of this encounter
--- OUTSIDE RECORDS SUMMARY | 2021-11-30 08:27 | XMS_ITS | Encounter Summary ---
:1955 Author Organization [facility] [place] [address] Care Team Providers Name Role Phone Eli Bergman MD Primary Care Provider Encounter Details Date Type Department Care Team Description 08/12/2012 Notes Only Internal Medicine at [facility] [place] [address] Social History Tobacco Use Types Packs/Day Years Used Date Current Every Day Smoker Cigarettes 0.25 42 Smokeless Tobacco: Former User Alcohol Use Standard Drinks/Week Comments Not Asked 0 (1 standard drink = 0.6 oz pure alcoho l) Sex Assigned at Date Recorded Not on file documented as of this encounter Progress Notes Vidhya Puckett, VINCENT - 08/12/2012 4:34 PM EDT Prescriptions for methadone and ritalin generated on 08/11 Not able to be signed by Dr Bergman today. Both unsigned prescriptions destroyed and Prescription for methadone and Ritalin Printed to be signed by Dr Monae in Dr Bergman's absence. documented in this encounter Plan of Treatment Upcoming Encounters Date Type Specialty Care Team Description 12/11/2021 Appointment Radiology 12/11/2021 Office Visit Orthopaedics Marion Tavera APRN [facility] DR ORTHOPAEDIC SURG [place], [place] [address] (Wo rk) 01/15/2022 Appointment Radiology Stiven Cervantes MD [facility] Pulmonary Medici [place], [place] [address] (Wo rk) Scheduled Procedures Name Priority Associated Diagnoses Date/Time DEBRIDEMENT SKIN, SUBCU, MUSCLE, R great toe amp utation, wound LOWER EXTREMITY (WRVU 2.7) closure MODIFIER WOUND VAC R great toe amputation, wound closure documented as of this encounter Visit Diagnoses Not on filedocumented in this encounter Care Teams Hydroelectric Plant Technician Relationship Specialty Start Date End Date Eli Bergman MD PCP - General 11/21/11 04/20/13 [facility] GENERAL [place] [address] documented as of this encounter
--- OUTSIDE RECORDS SUMMARY | 2021-11-30 08:27 | XMS_ITS | Encounter Summary ---
:1955 Author Organization [facility] [place] [place] [address] Care Team Providers Name Role Phone Eli Bergman MD Primary Care Provider Reason for Visit Reason Onset Date Comments Medication Refill 11/17/2012 Encounter Details Date Type Department Care Team Description 11/17/2012 Refill Internal Medicine at [facility] [place] Vidhya Puckett RN Pain (Primary Dx) [place] [address] Social History Tobacco Use Types Packs/Day [...] 12/11/2021 Office Visit Orthopaedics Marion Tavera APRN [facility] DR ORTHOPAEDIC SURG [place], [place] [address] (Wo rk) 01/15/2022 Appointment Radiology Stiven Cervantes MD [facility] Pulmonary Medici nelly [place], [place] [address] (Wo rk) Scheduled Procedures Name Priority Associated Diagnoses Date/Time DEBRIDEMENT SKIN, SUBCU, MUSCLE, R great toe amp utation, wound LOWER EXTREMITY (WRVU 2.7) closure MODIFIER WOUND VAC R great toe amputation, wound closure documented as of this encounter Visit Diagnoses Diagnosis Pain - Primary Generalized pain documented in this encounter Care Teams Personal Lines Account Manager Relationship Specialty Start Date End Date Eli Bergman MD PCP - General 11/21/11 04/20/13 [facility] GENERAL [place] [address] documented as of this encounter
--- OUTSIDE RECORDS SUMMARY | 2021-11-30 08:27 | XMS_ITS | Encounter Summary ---
:1955 Author Organization [facility] [place] [address] Care Team Providers Name Role Phone Eli Bergman MD Primary Care Provider Reason for Visit Reason Onset Date Comments Medication Refill 12/15/2012 Encounter Details Date Type Department Care Team Description 12/15/2012 Refill Internal Medicine at [facility] [place] Vidhya Puckett RN Pain (Primary Dx) [place] [address] Social History Tobacco Use Types Packs/Day [...] [facility] ORTHOP[facility]EDIC SURG [place], [place] [address] (Wo rk) 01/15/2022 Appointment Radiology Stiven Cervantes MD [facility] Pulmonary Medici nelly [place], [place] [address] (Wo rk) Scheduled Procedures Name Priority Associated Diagnoses Date/Time DEBRIDEMENT SKIN, SUBCU, MUSCLE, R great toe amp utation, wound LOWER EXTREMITY (WRVU 2.7) closure MODIFIER WOUND VAC R great toe amputation, wound closure documented as of this encounter Visit Diagnoses Diagnosis Pain - Primary Generalized pain documented in this encounter Care Teams Produce Wrapper Relationship Specialty Start Date End Date Eli Bergman MD PCP - General 11/21/11 04/20/13 [facility] GENERAL INTERNAL [place] [address] documented as of this encounter
--- OUTSIDE RECORDS SUMMARY | 2021-11-30 08:27 | XMS_ITS | Encounter Summary ---
:1955 Author Organization [facility] [place] [address] Care Team Providers Name Role Phone Eli Bergman MD Primary Care Provider Reason for Visit Reason Onset Date Comments Medication Refill 10/20/2012 Encounter Details Date Type Department Care Team Description 10/20/2012 Refill Internal Medicine at [facility] [place] Vidhya Puckett RN Pain (Primary Dx) [place] [address] Social History Tobacco Use Types Packs/Day [...] Tavera APRN [facility] DR ORTHOPAEDIC SURG [place], [place] [address] (Wo rk) 01/15/2022 Appointment Radiology Stiven Cervantes MD [facility] Pulmonary Medici nelly [place], [place] [address] (Wo rk) Scheduled Procedures Name Priority Associated Diagnoses Date/Time DEBRIDEMENT SKIN, SUBCU, MUSCLE, R great toe amp utation, wound LOWER EXTREMITY (WRVU 2.7) closure MODIFIER WOUND VAC R great toe amputation, wound closure documented as of this encounter Visit Diagnoses Diagnosis Pain - Primary Generalized pain documented in this encounter Care Teams Weed Control Inspector Relationship Specialty Start Date End Date Eli Bergman MD PCP - General 11/21/11 04/20/13 [facility] GENERAL [place] [address] documented as of this encounter
--- OUTSIDE RECORDS SUMMARY | 2021-11-30 08:27 | XMS_ITS | Encounter Summary ---
:1955 Author Organization [facility] [place] [address] Care Team Providers Name Role Phone Eli Bergman MD Primary Care Provider Reason for Visit Reason Onset Date Comments Medication Refill 08/12/2012 Encounter Details Date Type Department Care Team Description 08/12/2012 [place]ill [place] [facility] [place]hy[place]ett, [place] [address] Social History Tobacco Use Types Packs/Day [...] Tavera APRN [facility] ORTHOPAEDIC SURG [place], [place] [address] (Wo rk) 01/15/2022 Appointment Radiology Stiven Cervantes MD [facility] Pulmonary Medici [place], [place] [address] (Wo rk) Scheduled Procedures Name Priority Associated Diagnoses Date/Time DEBRIDEMENT SKIN, SUBCU, MUSCLE, R great toe amp utation, wound LOWER EXTREMITY (WRVU 2.7) closure MODIFIER WOUND VAC R great toe amputation, wound closure documented as of this encounter Visit Diagnoses Not on filedocumented in this encounter Care Teams Sap Bpc Architect Relationship Specialty Start Date End Date Eli Bergman MD PCP - General 11/21/11 04/20/13 [facility] [place] [address] documented as of this encounter
--- OUTSIDE RECORDS SUMMARY | 2021-11-30 08:27 | XMS_ITS | Encounter Summary ---
:1955 Author Organization [facility] [place] [address] Care Team Providers Name Role Phone Eli Roca MD Primary Care Provider Reason for Visit Reason Comments Altered Mental Status Encounter Details Date Type Department Care Team Description 08/19/2012 - Hospital Intermediate Cardiac Samuel Rajan MD [facility] [place] [address] Pain (Primary Dx); 08/21/2012 Encounter Care Unit Brian Garces III, [place] [address] Pneumonia [facility] [place] [address] [place] [id number] Social History Tobacco Use Types Packs/Day Years Used Date Current Every Day Smoker Cigarettes 0.25 42 Smokeless Tobacco: Former User Alcohol Use Standard Drinks/Week Comments Yes 17.5 [...] Sign Reading Time Taken Comments Blood Pressure 117/76 08/21/2012 8:21 AM EDT Pulse 72 08/21/2012 8:21 AM EDT Temperature 37 ??C (98.6 ??F) 08/21/2012 8:21 AM EDT Respiratory Rate 18 08/21/2012 8:21 AM EDT Oxygen Saturation 92% 08/21/2012 8:21 AM EDT Inhaled Oxygen Concentration - - Weight 91.7 kg (202 lb 2.6 oz) 08/21/2012 6:17 AM EDT Height 175.3 cm (5' 9) 08/19/2012 9:45 PM EDT per pt Body Mass Index 29.85 08/19/2012 9:45 PM EDT documented in this encounter Discharge Instructions Patient InstructionsHien Jacome - 08/21/2012 10:27 AM EDT You were diagnosed with pneumonia and treated with antibiotics. We will continue to treat you with an antibiotic called Moxifloxacin for 5 more days. Take the whole course of medication, even if you feel better. You also had some low minerals, including folate and low normal vitamin B12. We recommend taking a multivitamin to help with your overall nutrition status. Remember to drink plenty of water. Your lungs will get better faster if you quit smoking altogether. Good job cutting back, try to continue on your path to quitting smoking. Avoid alcohol consumption as it makes things worse with your liver function. You will need to get another x-ray in 6 weeks, just to make sure your pneumonia is better. Call your doctor if you start to feel short of breath, cough up blood, or get lethargic, sleepy, or confused again. documented in this encounter Medications at Time of Discharge Medication Sig Dispensed Refills Start Date End Date multivitamin Take 1 tablet by 0 08/21/2012 (THERAGRAN) tablet mouth daily. moxifloxacin (AVELOX) Take 1 tablet by 5 tablet 0 08/22/19 13 01/14/2013 400 mg tablet mouth daily. methadone (DOLOPHINE) Take 4 tablets by 224 tablet 0 013 08/24/2012 10 mg mouth 4 times daily. tabletIndications: Pain Signed in the absence Dr Roac methylphenidate Take 1 tablet by 112 tablet 0 08/12/2012 (RITALIN) 20 mg mouth 4 times daily. tabletIndications: Signed in the absence attention-deficit Dr Roca hyperactivity disorder Indications: Attention-Deficit Hyperactivity Disorder atenolol (TENORMIN) 50 Take 1 tablet by 90 tablet 3 013 08/28/2016 mg tablet mouth 2 times daily. buPROPion (WELLBUTRIN Take 1 tablet by 30 tablet 5 06/30/19 13 10/06/2012 XL) 300 mg 24 hr tablet mouth every morning. diaZEPam (VALIUM) 5 mg Take 1 tablet by 90 tablet 2 013 09/17/2012 tablet mouth 3 times daily as needed for Anxiety. famotidine (PEPCID) 20 Take 1 tablet by 60 tablet 12 012 04/26/2014 mg tablet mouth 2 times daily. amlodipine (NORVASC) 5 Take 1 tablet by 90 tablet 3 012 08/20/2016 mg tablet mouth daily. documented as of this encounter Progress Notes Wiliam Du RN - 08/21/2012 11:58 AM EDT Saline lock removed. AVS reviewed and provided, verbalizes understanding, present. Discharged home with . T Bridgett Rush MD - 08/21/2012 11:38 AM EDT Hospital Medicine - Attending Day of Discharge Documentation Discharge diagnosis No resolved problems to display. Active Hospital Problems Diagnoses ??? Community acquired pneumonia ??? Confusion ??? Imbalance Resolved Hospital Problems Diagnoses Date Resolved Secondary Issues Active Non-Hospital Problems Diagnoses ??? Hepatitis C ??? Alcohol dependence ??? Anixety D/O NOS ??? ADHD NOS ??? Chronic back pain ??? Major depressive disorder, single episode, unspecified I have personally seen and examined the patient and they are ready for discharge. WBC count almost normalized. Feels great. No confusion. I spent 35 minutes (Day of Discharge Code 86886) involved in the final examination of the patient, discussion of the hospital stay, instructions for continuing care to all relevant caregivers, and preparation of discharge records, prescriptions and referral forms. Plans Discharge to home Follow-up scheduled with PCP, Psychiatry Please see the Discharge Summary for complete details of any medication changes and additional plans. Bridgett Rush MD - 08/20/2012 5:53 PM EDT Inpatient Hospital Medicine - Progress Note Admit Date: 08/19/2012 Hospital Day 1 day Problem List: No resolved problems to display. Active Hospital Problems Diagnoses ??? Community acquired pneumonia ??? Confusion ??? Imbalance Resolved Hospital Problems Diagnoses Date Resolved Active Non-Hospital Problems Diagnoses ??? Hepatitis C ??? Alcohol dependence ??? Anixety D/O NOS ??? ADHD NOS ??? Chronic back pain ??? Major depressive disorder, single episode, unspecified Subjective: --adamant about leaving the hospital thi smorning on rounds. Denies chest pain, SOB, fever. stated confusion was better. No nausea, vomiting, or abd pain Physical Exam: Last Set of Vitals and range of vitals over past 24 hours: Last value Range last 24 hrs Temperature Temp: 37 ??C (98.6 ??F) Temp: [36.8 ??C (98.2 ??F)-38.7 ??C (101.7 ??F)] Heart Rate Heart Rate: 70 Heart Rate: [66-85] Blood Pressure BP: 108/60 mmHg BP: (104-152)/(60-89) Respiratory Rate Resp: 22 Resp: [16-24] SpO2 SpO2: 94 % SpO2: [90 %-97 %] Physical Exam [vitalsreviewed. Constitutional: He is oriented to person, place, and time. No distress. HENT: Head: Normocephalic and atraumatic. Eyes: Pupils are equal, round, and reactive to light. No scleral icterus. Neck: Normal range of motion. Neck supple. Cardiovascular: Normal rate, regular rhythm and normal heart sounds. Pulmonary/Chest: Effort normal. Crackles over right mid lung field Abdominal: Soft. Bowel sounds are normal. He exhibits no distension. There is no tenderness. Neurological: He is alert and oriented to person, place, and time. Skin: Skin is warm and dry. No erythema. Psychiatric: anxious Laboratory (Last 24 Hours): Recent Results (from the past 24 hour(s)) CBC (WITH DIFF) Component Value Range WBC 19.3 (*) 4.0 - 10.0 x10(3)/mcL RBC 3.81 (*) 4.63 - 6.08 x10(6)/mcL Hemoglobin 13.3 (*) 13.7 - 17.5 gm/dL Hematocrit 38.0 (*) 40.0 - 51.0 % MCV 99.7 (*) 79.0 - 92.0 fL MCH 34.9 (*) 25.6 - 32.2 pg MCHC 35.0 32.0 - 36.5 gm/dL Platelets 474 (*) 145 - 370 x10(3)/mcL RDWSD 49.6 (*) 35.0 - 46.0 fL RDWCV 13.9 10.9 - 14.4 % MPV 9.6 9.0 - 12.0 fL ELECTROLYTES PANEL Component Value Range Sodium 128 (*) 135 - 145 mmol/L Potassium 4.6 3.5 - 5.0 mmol/L Chloride 93 (*) 98 - 107 mmol/L CO2 24 22 - 31 mmol/L Anion Gap 11 5 - 15 mmol/L BUN Component Value Range BUN 12 10 - 20 mg/dL CREATININE Component Value Range Creatinine 1.18 0.80 - 1.50 mg/dL Estimated GFR >60 >=60 GLUCOSE, RANDOM Component Value Range Glucose Lvl 95 60 - 199 mg/dL HEPATIC FUNCTION PANEL Component Value Range Total Protein 8.0 6.4 - 8.3 gm/dL Albumin 3.6 3.2 - 5.2 gm/dL AST 106 (*) 0 - 39 unit/L ALT 64 (*) 0 - 55 unit/L Alk Phos 159 (*) 40 - 120 unit/L Total Bilirubin 0.6 0.2 - 1.3 mg/dL Bili, Direct 0.4 (*) 0.0 - 0.3 mg/dL PROTHROMBIN TIME Component Value Range PT 16.4 (*) 12.0 - 15.0 sec INR 1.3 (*) 0.9 - 1.1 TROPONIN T Component Value Range Troponin-T <0.03 <=0.03 ng/mL CK Component Value Range CK, Total 734 (*) 0 - 200 unit/L AMMONIA Component Value Range Ammonia 34 16 - 60 mcmol/L LACTIC ACID, PLASMA Component Value Range Lactate 1.1 0.5 - 2.2 mmol/L SCAN, PERIPHERAL BLOOD Component Value Range Plat Estimate Increased RBC Morphology Abnormal Macrocytes 1-5 Rouleaux Present NUCLEATED RED BLOOD CELLS Component Value Range nRBC % Auto 0.0 0.0 - 0.2 % nRBC Abs Auto 0.000 0.000 - 0.012 x10(3)/mcL DIFFERENTIAL, AUTOMATED Component Value Range Neutrophils % 84.4 (*) 34.0 - 71.0 % Neutr Abs (ANC) 16.29 (*) 1.50 - 6.30 x10(3)/mcL Lymphocytes % 5.2 (*) 19.0 - 53.0 % Lymphocytes Abs 1.0 1.0 - 3.6 x10(3)/mcL Monocytes % 9.8 4.0 - 13.0 % Monocyte Abs 1.9 (*) 0.2 - 1.0 x10(3)/mcL Eosinophils % 0.1 0.0 - 7.0 % Eosinophils Abs 0.0 0.0 - 0.5 x10(3)/mcL Basophils % 0.2 0.0 - 2.0 % Basophils Abs 0.0 0.0 - 0.2 x10(3)/mcL Immature Gran % 0.30 0.00 - 0.66 % Shannan Gran Abs 0.05 0.00 - 0.05 x10(3)/mcL URINALYSIS WITH MICROSCOPIC Component Value Range Glucose UA Negative Negative mg/dL Protein UA Negative Bilirubin UA Negative Negative mg/dL Urobilinogen UA 2.0 (*) Normal mg/dL pH UA 7.0 5.0 - 8.0 Blood UA Negative Ketones UA Negative Nitrite UA Negative Leukocytes UA Negative Appearance UA Clear Clear Spec Heidrick UA 1.005 1.002 - 1.030 Color UA Yellow Yellow RBC UA <1 0 - 3 /HPF WBC UA <1 0 - 3 /HPF Squam Epith UA <1 <=4 /HPF URINE CULTURE Component Value Range Urine Culture Value: Patient Name: SOLEDAD RAMOS Ordered By: SAMUEL RJAAN MR#: [id number] LOC: 1WST /Sex: 1955 (56 years), Male PROCEDURE: Urine Culture SOURCE: U CC COLLECTED: 08/19/2012 20:00 STARTED: 08/19/2012 20:29 FINAL REPORT Final Report Verified:08/20/2012 15:03 No growth (Less than 1,000 cfu/ml). CBC (WITH DIFF) Component Value Range WBC 16.6 (*) 4.0 - 10.0 x10(3)/mcL RBC 3.64 (*) 4.63 - 6.08 x10(6)/mcL Hemoglobin 12.3 (*) 13.7 - 17.5 gm/dL Hematocrit 37.2 (*) 40.0 - 51.0 % MCV 102.2 (*) 79.0 - 92.0 fL MCH 33.8 (*) 25.6 - 32.2 pg MCHC 33.1 32.0 - 36.5 gm/dL Platelets 374 (*) 145 - 370 x10(3)/mcL RDWSD 52.7 (*) 35.0 - 46.0 fL RDWCV 14.0 10.9 - 14.4 % MPV 9.8 9.0 - 12.0 fL BASIC METABOLIC PANEL (NON-FASTING) Component Value Range Glucose Lvl 72 60 - 199 mg/dL BUN 9 (*) 10 - 20 mg/dL Creatinine 0.85 0.80 - 1.50 mg/dL Sodium 134 (*) 135 - 145 mmol/L Potassium 4.4 3.5 - 5.0 mmol/L Chloride 101 98 - 107 mmol/L CO2 22 22 - 31 mmol/L Anion Gap 11 5 - 15 mmol/L Calcium 8.9 8.5 - 10.5 mg/dL Estimated GFR >60 >=60 NUCLEATED RED BLOOD CELLS Component Value Range nRBC % Auto 0.0 0.0 - 0.2 % nRBC Abs Auto 0.000 0.000 - 0.012 x10(3)/mcL DIFFERENTIAL, AUTOMATED Component Value Range Neutrophils % 83.4 (*) 34.0 - 71.0 % Neutr Abs (ANC) 13.83 (*) 1.50 - 6.30 x10(3)/mcL Lymphocytes % 7.7 (*) 19.0 - 53.0 % Lymphocytes Abs 1.3 1.0 - 3.6 x10(3)/mcL Monocytes % 8.4 4.0 - 13.0 % Monocyte Abs 1.4 (*) 0.2 - 1.0 x10(3)/mcL Eosinophils % 0.1 0.0 - 7.0 % Eosinophils Abs 0.0 0.0 - 0.5 x10(3)/mcL Basophils % 0.2 0.0 - 2.0 % Basophils Abs 0.0 0.0 - 0.2 x10(3)/mcL Immature Gran % 0.20 0.00 - 0.66 % Shannan Gran Abs 0.04 0.00 - 0.05 x10(3)/mcL TSH Component Value Range TSH 2.54 0.27 - 4.20 mcIU/mL PROTEIN ELECTROPHORESIS, SERUM Component Value Range Total Prot Elec 6.2 6.1 - 8.0 gm/dL VITAMIN B12 Component Value Range Vitamin B-12 323 207 - 974 pg/mL FOLATE, SERUM Component Value Range Folate Lvl 3.6 (*) 4.6 - 34.8 ng/mL Microbiology: Blood Culture: pending Urine Culture: Radiology: CXR - Impression 1. Pneumonia in the right upper lobe or superior segment of the right lower lobe. Follow up to radiographic resolution is recommended. 2. Elevated right hemidiaphragm of uncertain significance and chronicity, please clinically correlate. Prior chest radiographs, if available would be useful for comparison. RUQ US with dopler: Ultrasound - Vascular evaluation - Summary The hepatic veins, portal veins and hepatic artery are patent with normal directional flow. No ascites Assessment: 56 yo man on chronic methadone, relapsed Hep C not on treatment, EtOH abuse who presents with worsening confusion over past several days in backdrop of worsening delirium, gait imbalance in past month> CXR suggestive of RUL pneumonia, raising suspicion of aspiration in this gentleman. No clear signs of EtOH withdrawal, but suspicious for metabolic disturbance in the subacute phase. Ammonia is normal and US without ascites to tap to rule out SBP and no evidence for Budd-Chiari syndrome. Thyroid studies unremarkable and liver enzymes indicative of alcohol use. Polypharmacy likely as well with highdose methadone, ritalin, unclear extent he is faithfully taking these medications Plan: #1 CAP vs aspiration pneumonia --Cont Ceftriaxone, zithromax, add flagyl for anaerobic coverage --follow blood cx --wean 02 #2 Delirium --vitamin b12 low normal, folate low likely malnutrition related--replete with MVI, folate --TSH normal. Abd US without ascites and no portal vein/hepatic vein hrombus. AFP pending --SPEP pending --consider empiric lactulose therapy for possible contribution of hepatic encephalopathy --Ativan assessment scale --Monitor for improvement on Abx --No neurologic deficits, so CT head liekly won't be very enlightening #3 Chronic back pain --cont methadone as prescribed #4 Hep C -f/u with GI clinic FULL CODE Dispo: likely home tomorrow BRIDGETT RUSH MD 08/20/2012 Jasmyne Hussein RN - 08/20/2012 1:51 PM EDT Initial Assessment/CRC Note Office of Care Management Soledad Ramos 1955 [address] [facility] [id number] eDH reviewed. Report received from Dr. Rush Patient reviewed in multidisciplinary discharge rounds. S: I don't think I need to stay here. I need to get home to get my head on straight. O: Introduced self and CRC role to patient, spouse and pt's parents; patient agrees to CRC services;pt currently lives with spouse in [place], [place]. CRC contact information left on patient white board. Advance Directives: None in E-. Hospital course: admitted for CAP, mental status changes. No Known Allergies Current Functional Status/Mobility: Pt states he is amb to BR. Baseline Functional Status/Mobility: Current Home Services/Use of DME vendor: none. PCP: ELI ROCA MD Financial Concerns: insured via [place] [employer] and Medicare part A. Payment for meds through commercial insurance Transportation: family will transport pt home. Anticipated Services at Discharge: will require re-assessment closer to time of d/c. Social Support Patient has given [facility] permission for Padmini (home [phone]) to be contacted.. A: medical plan still evolving. P: This sports writer or colleague from the Office of Care Management will continue to follow patient to assist w/ changing needs and collaborate w/ pt, medical team and family to formulate a plan for discharge; CRC may be reached on beeper [phone] or by leaving a voice mail message at ext. [phone]. See Care Management note in eDH for detailed VNA/DME information upon discharge. Medical Team: Hospitalist service, pager [phone] Covering for Jeanette Emery RN, CRC pager [phone] Jasmyne Hussein RN, MSN, [facility] Clinical Travel Trailer [employer] As[employer]er Office of Care Management Pager [phone] Amy Rainey PT - 08/20/2012 10:20 AM EDT Physical therapy Pt in team meeting related to his desire to leave AMA. Nursing deferred PT until later today as available. AMY RAINEY, PT Maribeth Gomez RN - 08/19/2012 11:04 PM EDT Received report from Simone in ED regarding Mr. Ramos. Pt arrived to floor at approximately 2100 withwife and family. Pt walked from stretcher to bed with walker and standby assist. IV abx and NS running through periph IV. Pt connected to NASOFORMo and 3L NC continued. Admission assessment completed, pt and oriented to floor, given menu for tomorrow's meals. Pt verbalized awareness of importance ofringing for assistance. Bed alarm activated, pt aware. Continue plan of care as ordered and monitor. documented in this encounter H&P Notes Bridgett Rush MD - 08/19/2012 8:20 PM EDT Inpatient Hospital Medicine - Admission Note Problem List: No resolved problems to display. Active Hospital Problems Diagnoses ??? Community acquired pneumonia ??? Confusion ??? Imbalance Resolved Hospital Problems Diagnoses Date Resolved Active Non-Hospital Problems Diagnoses ??? Hepatitis C ??? Alcohol dependence ??? Anixety D/O NOS ??? ADHD NOS ??? Chronic back pain ??? Major depressive disorder, single episode, unspecified ID: 56 y.o. 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 Family reportspatient has been confused for the last month and has been hallucinating and seeing things that aren't there and talking to people that aren't present. Patient denies this. and son report that he improved for about 1 week, then 4-5 days ago began to get worse and became unstable standing. No knownserious falls where patient had any head trauma. Patient acknowledges his imbalance and difficulty walking but his only complaint is long standing bilat leg pain. Family reports that patient had chillstoday, but no known fever. No report of any SOB or cough. No recent URI. Review of Systems: Review of Systems Gen: As noted above Eyes: Denies visual changes, wears reading glasses ENT: Denies sore throat or rhinorrhea Resp: Denies SOB, denies cough CV: Denies chest pain/pressure GI: Denies abd pain/N/V/D : + hesitancy Heme/lymph: + chronic/intermittent LE edema Neuro: Denies headache, + off balance Derm: Denies rash Past Medical and Surgical History: Past Medical History Diagnosis Date ??? HTN (hypertension) ??? GERD (gastroesophageal reflux disease) ??? Depression ??? Hepatitis C Past Surgical History Procedure Date ??? Revision total hip arthroplasty bilateral for hip AVN Prior To Admission Medications: (Not in a hospital admission) Allergies: No Known Allergies Family History: Mother: healthy, living Father: healthy, living Social History and Habits: Tobacco: 40+ years, up to 2 ppd, currently smoking ~1/2 ppd EtoH: 4-5 twisted teas a day, denies any withdrawal symptoms when not drinking Illegal: denies current use, past h/o THC and Cocaine Immunizations: Immunization History Administered Date(s) Administered ??? Hep A/Hep B 07/11/2009, 08/11/2009, 02/14/2010 ??? Influenza PF, Split 03/07/2011 ??? Influenza Whole 05/21/2007, 03/04/2008 ??? Pneumococcal Polyvalent 23 02/11/2012 ??? Tdap 02/11/2012 Physical Exam: Last Set of Vitals and range of vitals over past 24 hours: Last value Range last 24 hrs Temperature Temp: 38.7 ??C (101.7 ??F) Temp: [38.7 ??C (101.7 ??F)] Heart Rate Heart Rate: 80 Heart Rate: [80-85] Blood Pressure BP: 131/81 mmHg BP: (125-152)/(78-89) Respiratory Rate Resp: 18 Resp: [16-24] SpO2 SpO2: 95 % SpO2: [90 %-97 %] Physical Exam Gen: NAD Head: NC/AT HEENT: MMM, no oral lesions/erythema Resp: bibasilar crackles R > L CV: RRR, S1/S2, 1/6 systolic murmur Abd: Soft, ND, NABS, ? Mild right sided tenderness Ext: No LE edema Skin: No rash Neuro: A&O to person, place, and month (but not date or year), PERRL, EOMI, uvula/palate elevatemildline, tongue midline, resident care aide strength 5/5 bilat Psych: anxious Lymph: no anterior/posterior cervical LAD Laboratory (Last 24 Hours): Recent Results (from the past 24 hour(s)) CBC (WITH DIFF) Component Value Range WBC 19.3 (*) 4.0 - 10.0 x10(3)/mcL RBC 3.81 (*) 4.63 - 6.08 x10(6)/mcL Hemoglobin 13.3 (*) 13.7 - 17.5 gm/dL Hematocrit 38.0 (*) 40.0 - 51.0 % MCV 99.7 (*) 79.0 - 92.0 fL MCH 34.9 (*) 25.6 - 32.2 pg MCHC 35.0 32.0 - 36.5 gm/dL Platelets 474 (*) 145 - 370 x10(3)/mcL RDWSD 49.6 (*) 35.0 - 46.0 fL RDWCV 13.9 10.9 - 14.4 % MPV 9.6 9.0 - 12.0 fL ELECTROLYTES PANEL Component Value Range Sodium 128 (*) 135 - 145 mmol/L Potassium 4.6 3.5 - 5.0 mmol/L Chloride 93 (*) 98 - 107 mmol/L CO2 24 22 - 31 mmol/L Anion Gap 11 5 - 15 mmol/L BUN Component Value Range BUN 12 10 - 20 mg/dL CREATININE Component Value Range Creatinine 1.18 0.80 - 1.50 mg/dL Estimated GFR >60 >=60 GLUCOSE, RANDOM Component Value Range Glucose Lvl 95 60 - 199 mg/dL HEPATIC FUNCTION PANEL Component Value Range Total Protein 8.0 6.4 - 8.3 gm/dL Albumin 3.6 3.2 - 5.2 gm/dL AST 106 (*) 0 - 39 unit/L ALT 64 (*) 0 - 55 unit/L Alk Phos 159 (*) 40 - 120 unit/L Total Bilirubin 0.6 0.2 - 1.3 mg/dL Bili, Direct 0.4 (*) 0.0 - 0.3 mg/dL PROTHROMBIN TIME Component Value Range PT 16.4 (*) 12.0 - 15.0 sec INR 1.3 (*) 0.9 - 1.1 TROPONIN T Component Value Range Troponin-T <0.03 <=0.03 ng/mL CK Component Value Range CK, Total 734 (*) 0 - 200 unit/L AMMONIA Component Value Range Ammonia 34 16 - 60 mcmol/L LACTIC ACID, PLASMA Component Value Range Lactate 1.1 0.5 - 2.2 mmol/L SCAN, PERIPHERAL BLOOD Component Value Range Plat Estimate Increased RBC Morphology Abnormal Macrocytes 1-5 Rouleaux Present NUCLEATED RED BLOOD CELLS Component Value Range nRBC % Auto 0.0 0.0 - 0.2 % nRBC Abs Auto 0.000 0.000 - 0.012 x10(3)/mcL DIFFERENTIAL, AUTOMATED Component Value Range Neutrophils % 84.4 (*) 34.0 - 71.0 % Neutr Abs (ANC) 16.29 (*) 1.50 - 6.30 x10(3)/mcL Lymphocytes % 5.2 (*) 19.0 - 53.0 % Lymphocytes Abs 1.0 1.0 - 3.6 x10(3)/mcL Monocytes % 9.8 4.0 - 13.0 % Monocyte Abs 1.9 (*) 0.2 - 1.0 x10(3)/mcL Eosinophils % 0.1 0.0 - 7.0 % Eosinophils Abs 0.0 0.0 - 0.5 x10(3)/mcL Basophils % 0.2 0.0 - 2.0 % Basophils Abs 0.0 0.0 - 0.2 x10(3)/mcL Immature Gran % 0.30 0.00 - 0.66 % Shannan Gran Abs 0.05 0.00 - 0.05 x10(3)/mcL Microbiology: Blood Cultures: pending Radiology: CXR - RML/RLL infiltrate Other Studies: EKG - NSR Assessment: 56 yo male with h/o HTN, Depression, GERD, bilat hip replacements for AVN, and Hep C genotype 2b with relapse after IFN and Ribaviran who presents to the ED with confusion and imbalance. In the ED, patient was hypoxic to 86% on RA, had an elevated WBC count, and a RML/RLL infiltrate on CXR consistent with CAP. His acute decline in MS can probably be attributed to the PNA. Will treat for CAP with CTX and Azithro and follow MS. His longer term (~1+ month) of confusion and hallucinations are more consistent with a metabolic encephalopathy, especially given his underlying Hep C. I don't see a need for head imaging currently, but if confusion and MS changes persist despite treatment for infection, headimaging may be indicated. Plan: ?? Admit to Medicine ?? Ceftraixone 1 gram IV Q24hrs ?? Azithromycin 250 mg PO daily x4 more doses ?? Blood cultures pending ?? Continue outpatient B/P meds ?? Continue methadone ?? Hold Ritalin as patient does not take this consistently ?? Falls precaution ?? Physical Therapy referral ?? Tobacco smoking cessation referral ?? DVT Prophylaxis - SCD's ?? If currently a smoker - advised about smoking cessation and will provide smoking cessation material and support. ?? Pneumovax and Influenza Immunizations given as needed. ?? Discussed Advanced Directives and Code Status. The patient wishesto be Full Code. A copy of this document will be sent to the patient's Primary Care Physician and/or Referring Physician. MARCO A AMANDA MD 08/19/2012 Attending Staff Admission Documentation I have examined the patient myself on 08/20/2012 and reviewed all labs and studies personally. Please see Dr. Amanda's documentation for details of the patient history of presentation and data. I have discussed, reviewed and agree with the documented history with ROS, physical findings, labs/studies, assessment and plan of care. Bridgett Rush MD documented in this encounter ED Notes Bryan Lechuga RN - 08/19/2012 8:[address] Amanda completed assessment room assignment given pts family aware/ orders written pt oob to void gaits is unsteady pt appears less confused skin diaphoretic fever has broken VSS pt appears tired butalert family at bedside lungs diminished rt mid and lower base NAD antibiotic infusing Bryan Lechuga RN - 08/19/2012 7:18 PM EDT Medicine attending Marco A Amanda in with pt at this time Samuel Rajan MD - 08/19/2012 6:19 PM EDT Soledad Ramos is an 56 y.o. male who presents to the ED with CC: AMS I saw this patient at 1810 HPI Soledad Ramos is a 56 y.o. male who presents to the Emergency Department with AMS. Pt has PMH of Hep C, alcoholism, chronic back pain, and avascular necrosis. His family states he has had slow declinein function for 1 month, but the last week has shown significant confusion, lethargy and weakness. He has refused to come in until today. He is a poor historian and family is only able it give limited history. He is aware of person and place. He is able to answer questions about family and some recentevents correctly. He denies current pain or SOB. Says he feels weak all over. Denies CP, abd pain. Denies dysuria. He smokes 1 ppd. Review of Systems Constitutional: Positive for fever, activity change, appetite change and fatigue. HENT: Negative for neck pain. Eyes: Negative for visual disturbance. Respiratory: Negative for cough, shortness of breath and wheezing. Cardiovascular: Positive for leg swelling. Negative for chest pain. Gastrointestinal: Negative for nausea, vomiting, abdominal pain, diarrhea and constipation. Genitourinary: Negative for dysuria. Musculoskeletal: Positive for arthralgias and gait problem. Negative for back pain. Skin: Negative for color change, rash and wound. Neurological: Positive for weakness (generalized). Negative for numbness and headaches. Hematological: Does not bruise/bleed easily. Psychiatric/Behavioral: Positive for hallucinations and confusion. Physical Exam Nursing note and vitals reviewed. Constitutional: He appears lethargic. He is cooperative. He has a sickly appearance. No distress. HENT: Head: Normocephalic and atraumatic. Head is without raccoon's eyes, without Brown's sign, without abrasion and without contusion. Nose: Nose normal. Mouth/Throat: Mucous membranes are pale and dry. No posterior oropharyngeal erythema. Eyes: Pupils 5 mm and reactive to light b/l. EOM intact. Neck: Normal range of motion and full passive range of motion without pain. Neck supple. No spinous process tenderness present. Cardiovascular: Normal rate, regular rhythm, normal heart sounds and intact distal pulses. Pulmonary/Chest: No accessory muscle usage. Tachypnea noted. No respiratory distress. He has decreased breath sounds. He has wheezes. He has rhonchi in the right middle field and the right lower field.He has rales in the right middle field and the right lower field. Abdominal: Normal appearance. He exhibits no distension. There is no tenderness. There is no rigidity, no guarding and no CVA tenderness. Musculoskeletal: Tenderness to palpation over b/l hips with no deformity. Neurological: He appears lethargic. No cranial nerve deficit or sensory deficit. GCS eye subscore is4. GCS verbal subscore is 5. GCS motor subscore is 6. Strength is grossly normal in all extremities Skin: No rash noted. He is not diaphoretic. ED Course: - I reviewed the patients records: Medications and fluids administered: 1 L bolus NS Tylenol 1 g Azithromycin 500 mg IV Ceftriaxone 2 g IV I reviewed the patient's labwork: Recent Labs Basename 08/19/12 1815 WBC 19.3* HGB 13.3* PLATELET 474* ANC -- Recent Labs Basename 08/19/12 1815 NA 128* K 4.6 CL 93* CO2 24 BUN 12 CREATININE 1.18 Recent Labs Basename 08/19/12 1815 AST 106* ALT 64* ALKPHOS 159* BILITOT 0.6 BILIDIR 0.4* Recent Labs Basename 08/19/12 1815 TROPONINT <0.03 CK 734* INR-1.3 Lactate-1.1 Ammonia-34 UA- Blood culture - pending I reviewed the x-ray images: CXR-1. Pneumonia in the right upper lobe or superior segment of the right lower lobe. Follow up to radiographic resolution is recommended. 2. Elevated right hemidiaphragm of uncertain significance and chronicity, please clinically correlate. Prior chest radiographs, if available would be useful for comparison. I reviewed the EKG: NSR, no acute ischemia I discussed the case with: Hospital medicine who agreed to evaluate him and admit him Assessment and Plan: History, ROS, and physical exam is limited due to altered mental status of patient. Pt has had steady progression of confusion and generalized weakness for 1 month, with acute worsening in the last week. He arrives with mild confusion about dates, but otherwise oriented. No history oftrauma or focal neuro deficits to suggest CVA. He is febrile and hypoxic at 87% SPO2 on RA on arrival with positive lung findings. SPO2 of 95% on 2L NC. Portable CXR shows large right sided PNA, labs sow elevated WBC and hyponatremia. He also has chronic hep C and other comorbidiites and family described him having some hallucinations and more severe confusion at home. This may be from encephalopathyor from ETOH withdrawal or abuse, it is unclear how much he has been drinking. There is not an emergent need for imaging at this time of the brain. We treated him for CAP with ceftriaxone and azithromycin and admitted him to hospital medicine for further workup and treatment. John Obrien DO Resident 08/19/122000 ED ATTENDING ADDENDUM: The patient was seen in conjunction with Dr. Obrien, the resident physician. I have independently performed the hansen portions of the history and physical exam. I have reviewed all diagnostic studies personally including labs, imaging studies and EKG's. I have discussed the details of the case with the resident and agree with the assessment and plan as described in the resident note above unless noted otherwise below. In summary, 56-year-old male with increased confusion and generalized fatigue for one week in the setting of hepatitis C. Workup reveals right-sided pneumonia. Treatment initiated as above. Final Assessment: Pneumonia Final Disposition: Admitted to hospitalist service Samuel Rajan MD 08/19/124 documented in this encounter Miscellaneous Notes Miscellaneous - Provider, Scanning - 08/22/2012 10:16 AM EDT Miscellaneous - Provider, Scanning - 08/20/2012 3:34 PM EDT Discharge Summary - Bridgett Rush MD - 08/20/2012 1:26 PM EDT Inpatient Hospital Medicine - Discharge Summary Patient Name: Soledad Ramos Patient Age: 56 y.o. Birthdate: 1955 Admit date: 08/19/2012 Discharge date and time: 08/21/2012 Attending Physician: Bridgett Rush MD Discharge Diagnoses (Hospital Problems) and Secondary Diagnoses (Chronic Problems): Active Hospital Problems Diagnoses ??? Community acquired pneumonia ??? Confusion ??? Imbalance Resolved Hospital Problems Diagnoses Date Resolved Active Non-Hospital Problems Diagnoses ??? Hepatitis C Genotype 2b ??? Alcohol dependence ??? Anixety D/O NOS ??? ADHD NOS ??? Chronic back pain ??? Major depressive disorder, single episode, unspecified Operations/Major Procedures: Operations: None Other Major Procedures: None History of Presentation: Per Dr. Amanda's HPI: 56 yo male with h/o HTN, Depression, GERD, bilat hip replacements for AVN, and Hep C genotype 2b with relapse after IFN and Ribaviran who presents to the ED with confusion and imbalance. Family reportspatient has been confused for the last month and has been hallucinating and seeing things that aren't there and talking to people that aren't present. Patient denies this. and son report that he improved for about 1 week, then 4-5 days ago began to get worse and became unstable standing. No knownserious falls where patient had any head trauma. Patient acknowledges his imbalance and difficulty walking but his only complaint is long standing bilat leg pain. Family reports that patient had chillstoday, but no known fever. No report of any SOB or cough. No recent URI. Hospital Course: Mr. Ramos was started on Azithromycin, ceftriaxone and flagyl, for possible aspiration as well. His symptoms rapidly improved on this regimen. WBC count almost normalized by day of discharge. With IV fluids his kidney function improved and his hyponatremia normalized. His mental status and balance also improved with this therapy and back to baseline We also started folate, thiamine, and a multivitamin. TSH, SPEP, UPEP were unremarkable. Abd US to evaluate for ascites, portal vein thrombosis was negative. He will be transitioned to moxifloxacin 400 mg daily x5 days to complete treatment. Important Studies and Lab Data: Labs: Recent Results (from the past 24 hour(s)) TSH Component Value Range TSH 2.54 0.27 - 4.20 mcIU/mL PROTEIN ELECTROPHORESIS, SERUM Component Value Range Total Prot Elec 6.2 6.1 - 8.0 gm/dL VITAMIN B12 Component Value Range Vitamin B-12 323 207 - 974 pg/mL FOLATE, SERUM Component Value Range Folate Lvl 3.6 (*) 4.6 - 34.8 ng/mL PROTEIN ELECTROPHORESIS, URINE, RANDOM Component Value Range U Protein Ran 7 0 - 12 mg/dL RAPID QUALITATIVE DRUG SCREEN, URINE ([facility]) Component Value Range BRITTNEE Marijuana Metabolites Scr None Detected None Detected BRITTNEE Phencyclidine Scr None Detected None Detected BRITTNEE Cocaine Metabolites Scr None Detected None Detected BRITTNEE Metamphetamines Scr None Detected None Detected BRITTNEE Opiates Scr None Detected None Detected BRITTNEE Amphetamines Scr None Detected None Detected BRITTNEE Benzodiazepines Scr Presumptive Pos (*) None Detected BRITTNEE Tricyclics Scr None Detected None Detected BRITTNEE Methadone Scr Presumptive Pos (*) None Detected BRITTNEE Barbiturates Scr None Detected None Detected BRITTNEE Oxycodone Src None Detected None Detected BRITTNEE Propoxyphene Scr None Detected None Detected BRITTNEE Buprenorphine Scr None Detected None Detected CBC (WITH DIFF) Component Value Range WBC 10.9 (*) 4.0 - 10.0 x10(3)/mcL RBC 3.44 (*) 4.63 - 6.08 x10(6)/mcL Hemoglobin 11.7 (*) 13.7 - 17.5 gm/dL Hematocrit 35.2 (*) 40.0 - 51.0 % MCV 102.3 (*) 79.0 - 92.0 fL MCH 34.0 (*) 25.6 - 32.2 pg MCHC 33.2 32.0 - 36.5 gm/dL Platelets 395 (*) 145 - 370 x10(3)/mcL RDWSD 52.7 (*) 35.0 - 46.0 fL RDWCV 14.1 10.9 - 14.4 % MPV 9.6 9.0 - 12.0 fL BASIC METABOLIC PANEL (NON-FASTING) Component Value Range Glucose Lvl 58 (*) 60 - 199 mg/dL BUN 8 (*) 10 - 20 mg/dL Creatinine 0.81 0.80 - 1.50 mg/dL Sodium 136 135 - 145 mmol/L Potassium 4.3 3.5 - 5.0 mmol/L Chloride 101 98 - 107 mmol/L CO2 22 22 - 31 mmol/L Anion Gap 13 5 - 15 mmol/L Calcium 9.2 8.5 - 10.5 mg/dL Estimated GFR >60 >=60 NUCLEATED RED BLOOD CELLS Component Value Range nRBC % Auto 0.0 0.0 - 0.2 % nRBC Abs Auto 0.000 0.000 - 0.012 x10(3)/mcL DIFFERENTIAL, AUTOMATED Component Value Range Neutrophils % 72.4 (*) 34.0 - 71.0 % Neutr Abs (ANC) 7.93 (*) 1.50 - 6.30 x10(3)/mcL Lymphocytes % 14.1 (*) 19.0 - 53.0 % Lymphocytes Abs 1.5 1.0 - 3.6 x10(3)/mcL Monocytes % 11.5 4.0 - 13.0 % Monocyte Abs 1.3 (*) 0.2 - 1.0 x10(3)/mcL Eosinophils % 1.4 0.0 - 7.0 % Eosinophils Abs 0.2 0.0 - 0.5 x10(3)/mcL Basophils % 0.2 0.0 - 2.0 % Basophils Abs 0.0 0.0 - 0.2 x10(3)/mcL Immature Gran % 0.40 0.00 - 0.66 % Shannan Gran Abs 0.04 0.00 - 0.05 x10(3)/mcL Studies: Urine Culture: no growth Blood Culture: no growth x1 day in both bottles Ultrasound - Abdomen Limited - Summary No hepatic lesions Multiple sessile GB polyps. No ascites. No portal vein thrombosis. No ascites. No varices. Ultrasound - Vascular evaluation - Summary The hepatic veins, portal veins and hepatic artery are patent with normal directional flow. Chest X-ray: Impression 1. Pneumonia in the right upper lobe or superior segment of the right lower lobe. Follow up to radiographic resolution is recommended. 2. Elevated right hemidiaphragm of uncertain significance and chronicity, please clinically correlate. Prior chest radiographs, if available would be useful for comparison. Pending Studies and Lab Data: Final Blood Culture results AFP Discharge Conditions/Prognosis: Community acquired or aspiration pneumonia: expect full recovery with antibiotic treatment. Discharge to: Home Discharge Medications: Current Discharge Medication List New Meds Dose Details multivitamin (THERAGRAN) tablet 1 tablet Take 1 tablet by mouth daily. moxifloxacin (AVELOX) 400 mg tablet 400 mg Take 1 tablet by mouth daily. Qty: 5 tablet Refills: 0 Continued medications, unchanged Dose Details methadone (DOLOPHINE) 10 mg tablet 40 mg Take 4 tablets by mouth 4 times daily. Signed in the absence Dr Roca Qty: 224 tablet Refills: 0 methylphenidate (RITALIN) 20 mg tablet 20 mg Take 1 tablet by mouth 4 times daily. Signed in the absence Dr Roca Indications: Attention-Deficit Hyperactivity Disorder Qty: 112 tablet Refills: 0 atenolol (TENORMIN) 50 mg tablet 50 mg Take 1 tablet by mouth 2 times daily. Qty: 90 tablet Refills: 3 buPROPion (WELLBUTRIN XL) 300 mg 24 hr tablet 300 mg Take 1 tablet by mouth every morning. Qty: 30 tablet Refills: 5 diaZEPam (VALIUM) 5 mg tablet 5 mg Take 1 tablet by mouth 3 times daily as needed for Anxiety. Qty: 90 tablet Refills: 2 famotidine (PEPCID) 20 mg tablet 20 mg Take 1 tablet by mouth 2 times daily. Qty: 60 tablet Refills: 12 amlodipine (NORVASC) 5 mg tablet 5 mg Take 1 tablet by mouth daily. Qty: 90 tablet Refills: 3 Medications STOPPED Dose ACETAMINOPHEN/DP-HYDRAM HCL (TYLENOL PM ORAL) 2 tablets Updated Allergies/ADRs: No Known Allergies Follow-up Recommendations for Providers: --Will need f/u to ensure resolution of pneumonia--recommend CXR in 6 weeks. --Low folate, low normal B12, likey recommend continued vitamin supplementation as he has had poor oral intake over the past month. --We also emphasized the importance of stopping alcohol and tobacco consumption as he has recently been drinking. He had cut back on cigarettes considerably, recommend f/u on this. Instructions Given to Patient at Discharge: Provider Instructions You were diagnosed with pneumonia and treated with antibiotics. We will continue to treat you with an antibiotic called Moxifloxacin for 5 more days. Take the whole course of medication, even if you feel better. You also had some low minerals, including folate and low normal vitamin B12. We recommend taking a multivitamin to help with your overall nutrition status. Remember to drink plenty of water. Your lungs will get better faster if you quit smoking altogether. Good job cutting back, try to continue on your path to quitting smoking. Avoid alcohol consumption as it makes things worse with your liver function. You will need to get another x-ray in 6 weeks, just to make sure your pneumonia is better. Call your doctor if you start to feel short of breath, cough up blood, or get lethargic, sleepy, or confused again. General Instructions None Future Appointments and Orders Future Appointments: Provider: Department: Dept Phone: Center: 08/25/2012 2:15 PM Eli Roca MD General Internal Medicine [phone] [facility] Joint Appt Nurse [place] Pre Visit General Internal Medicine [phone] [facility] 08/25/2012 2:40 PM Sen Gomes MD Psychiatry and Behavioral Health [phone] None Joint Appt Questionnaire Five D Res-Psych LEB 5D [phone] None Provider Contact Information: Hospital Medicine: [phone] Discharge References/Attachments: Discharge References/Attachments None For questions regarding this document or issues relating to this hospitalization on the Medical Service, please contact your inpatient physician through the [facility] Equipment Lead . Issues after hours and on weekends will be handled by the Hospitalist staff on-call. Signed: BRIDGETT RUSH MD, MS3 08/21/2012 Med Student Progress Note - Hien Jacome - 08/20/2012 1:04 PM EDT Inpatient Hospital Medicine - Progress Note Admit Date: 08/19/2012 Hospital Day 1 day Problem List: No resolved problems to display. Active Hospital Problems Diagnoses ??? Community acquired pneumonia ??? Confusion ??? Imbalance Resolved Hospital Problems Diagnoses Date Resolved Active Non-Hospital Problems Diagnoses ??? Hepatitis C ??? Alcohol dependence ??? Anixety D/O NOS ??? ADHD NOS ??? Chronic back pain ??? Major depressive disorder, single episode, unspecified 24 Hour Events: Received ceftriaxone and azithromycin as well as IV fluids. Subjective: Mr. Ramos feels better this morning. His mental status is much clearer and he is more alert according to his . He is a very poor historian but gives a general story of worsened balance over the past few weeks which he attributes to decreased fluid intake. He says it is worse when he gets up suddenly or when he goes up and down stairs. He denies a history of falls, however his says he has fallen 3 times over the past few weeks. Per his he has also seemed to be talking to people who aren't there/seeing things that aren't there, however he emphatically denies this. He has been increasingly lethargic and confused over the past 4-5 days with decreased oral intake. He also states that he ran out of his methadone and was without it for some days, although he is not sure when this was or how long--possibly from this weekend until admission last night. He emphatically expresses the desire to get home KEN because he needs to get working on some opportunities to make money for his family and he does not feel that he needs to be hospitalized. He does not understand why everyone needs to see my tests. ROS: Gen: + weight loss--10 lbs over last few months, + fatigue, decreased appetite. HEENT: no visual changes. No URI symptoms. Resp: + morning cough, baseline for him. No SOB, dyspnea on exertion, orthopnea CV: no CP GI: + diarrhea x few days early august, then constipation. No abd pain or vomiting. MSK: leg is all screwed up Neuro: denies headaches, lightheadedness. Psych: denies AVH, paranoia. Depression/anxiety better over the last month. Ritalin helps with motivation. Lots of stress about not being able to work and financial situation of his family. Grieving loss of surrogate son (murdered around [place] time 2011). Denies SI or HI. Substance use: Drinking 1-6 twisted teas per day. Cut back on smoking. Physical Exam: Last Set of Vitals and range of vitals over past 24 hours: Last value Range last 24 hrs Temperature Temp: 37.5 ??C (99.5 ??F) Temp: [36.8 ??C (98.2 ??F)-38.7 ??C (101.7 ??F)] Heart Rate Heart Rate: 76 Heart Rate: [66-85] Blood Pressure BP: 110/80 mmHg BP: (104-152)/(60-89) Respiratory Rate Resp: 18 Resp: [16-24] SpO2 SpO2: 96 % SpO2: [90 %-97 %] Physical Exam Gen: Male appearing older than stated age lying in bed. HEENT: No scleral icterus. MMM. No gross lesions in oropharynx. CV: RRR, no murmur appreciated Resp: Bibasilar crackles, increased on R side. Abd: protuberant. Non-tender, but guarding. Neuro: Pupils reactive to light, r pupil appears 1 mm larger than L. Normal strength in upper and lower extremities. Mental status exam: General Appearance/Behavior: Dressed in hospital gown. Initially cooperative but grows agitated whentold he needs to stay for further tests. ?? Speech: Slow with normal volume/tone ?? Thought Process: Predominantly linear. ?? Associations: Intact ?? Abnormal Thoughts and Perceptions / Thought Content: Denies SI/HI, AVH, paranoia. ?? Judgment and Insight: poor ?? Mood & Affect: Anxious and irritated. Full affect. ?? Orientation: AAOx4 ?? Attention/Concentration: Attends appropriately. ?? Memory: Not directly assessed but appears to be poor for recent events Laboratory (Last 24 Hours): Recent Results (from the past 24 hour(s)) CBC (WITH DIFF) Component Value Range WBC 19.3 (*) 4.0 - 10.0 x10(3)/mcL RBC 3.81 (*) 4.63 - 6.08 x10(6)/mcL Hemoglobin 13.3 (*) 13.7 - 17.5 gm/dL Hematocrit 38.0 (*) 40.0 - 51.0 % MCV 99.7 (*) 79.0 - 92.0 fL MCH 34.9 (*) 25.6 - 32.2 pg MCHC 35.0 32.0 - 36.5 gm/dL Platelets 474 (*) 145 - 370 x10(3)/mcL RDWSD 49.6 (*) 35.0 - 46.0 fL RDWCV 13.9 10.9 - 14.4 % MPV 9.6 9.0 - 12.0 fL ELECTROLYTES PANEL Component Value Range Sodium 128 (*) 135 - 145 mmol/L Potassium 4.6 3.5 - 5.0 mmol/L Chloride 93 (*) 98 - 107 mmol/L CO2 24 22 - 31 mmol/L Anion Gap 11 5 - 15 mmol/L BUN Component Value Range BUN 12 10 - 20 mg/dL CREATININE Component Value Range Creatinine 1.18 0.80 - 1.50 mg/dL Estimated GFR >60 >=60 GLUCOSE, RANDOM Component Value Range Glucose Lvl 95 60 - 199 mg/dL HEPATIC FUNCTION PANEL Component Value Range Total Protein 8.0 6.4 - 8.3 gm/dL Albumin 3.6 3.2 - 5.2 gm/dL AST 106 (*) 0 - 39 unit/L ALT 64 (*) 0 - 55 unit/L Alk Phos 159 (*) 40 - 120 unit/L Total Bilirubin 0.6 0.2 - 1.3 mg/dL Bili, Direct 0.4 (*) 0.0 - 0.3 mg/dL PROTHROMBIN TIME Component Value Range PT 16.4 (*) 12.0 - 15.0 sec INR 1.3 (*) 0.9 - 1.1 TROPONIN T Component Value Range Troponin-T <0.03 <=0.03 ng/mL CK Component Value Range CK, Total 734 (*) 0 - 200 unit/L AMMONIA Component Value Range Ammonia 34 16 - 60 mcmol/L LACTIC ACID, PLASMA Component Value Range Lactate 1.1 0.5 - 2.2 mmol/L SCAN, PERIPHERAL BLOOD Component Value Range Plat Estimate Increased RBC Morphology Abnormal Macrocytes 1-5 Rouleaux Present NUCLEATED RED BLOOD CELLS Component Value Range nRBC % Auto 0.0 0.0 - 0.2 % nRBC Abs Auto 0.000 0.000 - 0.012 x10(3)/mcL DIFFERENTIAL, AUTOMATED Component Value Range Neutrophils % 84.4 (*) 34.0 - 71.0 % Neutr Abs (ANC) 16.29 (*) 1.50 - 6.30 x10(3)/mcL Lymphocytes % 5.2 (*) 19.0 - 53.0 % Lymphocytes Abs 1.0 1.0 - 3.6 x10(3)/mcL Monocytes % 9.8 4.0 - 13.0 % Monocyte Abs 1.9 (*) 0.2 - 1.0 x10(3)/mcL Eosinophils % 0.1 0.0 - 7.0 % Eosinophils Abs 0.0 0.0 - 0.5 x10(3)/mcL Basophils % 0.2 0.0 - 2.0 % Basophils Abs 0.0 0.0 - 0.2 x10(3)/mcL Immature Gran % 0.30 0.00 - 0.66 % Shannan Gran Abs 0.05 0.00 - 0.05 x10(3)/mcL URINALYSIS WITH MICROSCOPIC Component Value Range Glucose UA Negative Negative mg/dL Protein UA Negative Bilirubin UA Negative Negative mg/dL Urobilinogen UA 2.0 (*) Normal mg/dL pH UA 7.0 5.0 - 8.0 Blood UA Negative Ketones UA Negative Nitrite UA Negative Leukocytes UA Negative Appearance UA Clear Clear Spec Heidrick UA 1.005 1.002 - 1.030 Color UA Yellow Yellow RBC UA <1 0 - 3 /HPF WBC UA <1 0 - 3 /HPF Squam Epith UA <1 <=4 /HPF URINE CULTURE Component Value Range Urine Culture Value: Patient Name: SOLEDAD RAMOS Ordered By: SAMUEL RAJAN MR#: [id number] LOC: 1WST /Sex: 1955 (56 years), Male PROCEDURE: Urine Culture SOURCE: U CC COLLECTED: 08/19/2012 20:00 STARTED: 08/19/2012 20:29 FINAL REPORT Final Report Verified:08/20/2012 15:03 No growth (Less than 1,000 cfu/ml). CBC (WITH DIFF) Component Value Range WBC 16.6 (*) 4.0 - 10.0 x10(3)/mcL RBC 3.64 (*) 4.63 - 6.08 x10(6)/mcL Hemoglobin 12.3 (*) 13.7 - 17.5 gm/dL Hematocrit 37.2 (*) 40.0 - 51.0 % MCV 102.2 (*) 79.0 - 92.0 fL MCH 33.8 (*) 25.6 - 32.2 pg MCHC 33.1 32.0 - 36.5 gm/dL Platelets 374 (*) 145 - 370 x10(3)/mcL RDWSD 52.7 (*) 35.0 - 46.0 fL RDWCV 14.0 10.9 - 14.4 % MPV 9.8 9.0 - 12.0 fL BASIC METABOLIC PANEL (NON-FASTING) Component Value Range Glucose Lvl 72 60 - 199 mg/dL BUN 9 (*) 10 - 20 mg/dL Creatinine 0.85 0.80 - 1.50 mg/dL Sodium 134 (*) 135 - 145 mmol/L Potassium 4.4 3.5 - 5.0 mmol/L Chloride 101 98 - 107 mmol/L CO2 22 22 - 31 mmol/L Anion Gap 11 5 - 15 mmol/L Calcium 8.9 8.5 - 10.5 mg/dL Estimated GFR >60 >=60 NUCLEATED RED BLOOD CELLS Component Value Range nRBC % Auto 0.0 0.0 - 0.2 % nRBC Abs Auto 0.000 0.000 - 0.012 x10(3)/mcL DIFFERENTIAL, AUTOMATED Component Value Range Neutrophils % 83.4 (*) 34.0 - 71.0 % Neutr Abs (ANC) 13.83 (*) 1.50 - 6.30 x10(3)/mcL Lymphocytes % 7.7 (*) 19.0 - 53.0 % Lymphocytes Abs 1.3 1.0 - 3.6 x10(3)/mcL Monocytes % 8.4 4.0 - 13.0 % Monocyte Abs 1.4 (*) 0.2 - 1.0 x10(3)/mcL Eosinophils % 0.1 0.0 - 7.0 % Eosinophils Abs 0.0 0.0 - 0.5 x10(3)/mcL Basophils % 0.2 0.0 - 2.0 % Basophils Abs 0.0 0.0 - 0.2 x10(3)/mcL Immature Gran % 0.20 0.00 - 0.66 % Shannan Gran Abs 0.04 0.00 - 0.05 x10(3)/mcL TSH Component Value Range TSH 2.54 0.27 - 4.20 mcIU/mL PROTEIN ELECTROPHORESIS, SERUM Component Value Range Total Prot Elec 6.2 6.1 - 8.0 gm/dL VITAMIN B12 Component Value Range Vitamin B-12 323 207 - 974 pg/mL FOLATE, SERUM Component Value Range Folate Lvl 3.6 (*) 4.6 - 34.8 ng/mL Microbiology: Blood Culture: Pending Urine Culture: No growth Radiology: CXR - RUL pneumonia, elevated R hemidiaphragm. Other Studies: EKG - Normal Assessment: Mr. Ramos is a 56 yo male with a history of Hepatitis C serotype 2b (now relapsed), cirrhosis, HTN, depression, anxiety, and ADHD who presents with subacute worsening of balance, possible audio or visual hallucinations per family and altered mental status. He also has had an acute worsening of function with increasing lethargy and decreased oral intake over the past 4-5 days. Labs are remarkable for leukocytosis with a left shift, mild macrocytic anemia (appears to be his baseline), mild transaminitis compared to his baseline, hyponatremia (mostly resolved with IV fluids), INR of 1.3, and elevated CK with normal troponin. He also had rouleaux on blood scan. Acute increase in lethargy and confusion likely due to pneumonia--either CAP or aspiration as patient has had mental status change x1 month and has been drinking. Subacute changes in mental status including imbalance with falls and possible hallucinations--there is a wide differential for this, including a metabolic encephalopathy, (possibly hepatic although he does have a normal ammonia), polypharmacy (methadone, benzos, alcohol), alcohol-related changes (Wernicke's encephalopathy or cerebellar degeneration), multiple myeloma (rouleaux, however normal calciumwith normal kidney function and only a mild anemia), neoplastic process affecting the brain (primaryor metastatic), or another infectious process such as SBP. Plan: 1. Pneumonia, CAP or aspiration --continue CTX, po azithro. --Adding po flagyl to cover for anaerobes if aspiration pneumonia. 2. Subacute changes in mental status--imbalance, possible hallucinations: --Abdominal US with doppler to assess for current extent of liver disease, ascites, hepatic or portal vein thrombosis --AFP tumor marker --B12, folate levels --SPEP and UPEP --TSH --f/u blood cx --Ativan assessment scale --added po thiamine, folate, multivitamin --Lactulose as needed, may help improve mental status. --Continue diazepam PRN, methadone, bupropion. --Continue atenolol and amlodipine --Healthy choices diet. FULL CODE Hien Ayaz, MS3 08/20/2012 Initial Assessments - Amy Rainey, PT - 08/20/2012 9:50 AM EDT Physical Therapy Evaluation Patient profile: Pt. is a 56 y.o. male admitted on 08/19/2012 by Bridgett Gilmore MD with confusion and imbalance. 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 HTN (hypertension) ??? GERD (gastroesophageal reflux disease) ??? Depression ??? Hepatitis C Past Surgical History Procedure Date ??? Revision total hip arthroplasty bilateral for hip AVN Social History: , lives in [place] Few weeks prior to admission started having increased unsteadiness, needing to use a walking stick and lean heavily on furniture and santoyo. Has variety of DME from previous surgeries. in room and notes his walking and stability is now at baseline, no longer unsteady per her comparisons Precautions/Special Considerations: bed alarms; returned to bed and alarms on when PT left room 1L o2 nasal cannula, fall risk , wants to leave hospital today and not sure what is keeping him here. Acknowledges the need for IV abx but does not feel an US is needed because he has other doctors whoare following his liver. Subjective: ???I'm dying, I don't have much time left, I need to get out of here?? I talked with my metal technician and they cant keep me here unless there is sufficient reason. If it comes down to it I will bring a lawsuit up against them with this. Objective: Pt seen for evaluation today. Pain: hips, chronic Vital Signs: Last value Range last 12 hrs Temperature Temp: 37.5 ??C (99.5 ??F) Temp: [37.5 ??C (99.5 ??F)] Heart Rate Heart Rate: 76 Heart Rate: [73-76] Blood Pressure BP: 110/80 mmHg BP: (110-116)/(68-80) Respiratory Rate Resp: 18 Resp: [18-20] SpO2 SpO2: 96 % SpO2: [94 %-97 %] Mental Status: alert, oriented to person, place, and time, carries on conversation, follows directions, slightly impulsive but able to be redirected with verbal cues. Expressing annoyance at having to stay here. Musculoskeletal: ROM: functional Strength: WFL Sensation: WFL Bed Mobility:independent Able to sit unsupported edge of bed for > 10 minutes without loss of balance Transfers: supervision Gait: limited to room due to O2, IV, pt annoyance at working with another provider Maneuvered well walking in room , around obstacles, stops/go, pushes objects out of path and reachesoutside base of support without loss of balance. Using IV pole like he uses his walking stick at home (right hand). Declines trial of cane or walker. Agrees to walking stick stability. Without assistive device or IV pole, weight forward over balls of feet, not as steady, shuffles and less stability. Balance:good sitting static and challenges, reaching outside base of support in both sitting and standing without loss of balance. Best standing with one hand support on walking stick / IV pole substitute. Informed Consent: The patient agrees to and understands the PT treatment plan and goals. Agrees to use of walking stick at home Education: patient and his have been educated on Safety , Equipment use, Gait , Role of therapyand Discharge planning and verbalizes and demonstrates understanding. Patient status, treatment, and mobility recommendations discussed with nursing. Assessment: resolving instability in standing and walking, willing to use his walking stick at all times when at home. While in hospital he is willing to use IV pole. Suggest nursing continue to be with him for mobilization due to his impulsivity and environmental obstacles which place him at higher risk for falls. Pt agrees to have nursing assist him with OOB. He does not desire further PT Plan:PT and his feel he is back at baseline. PT will monitor pt until discharge He has agreed to use IV pole for amb support in hospital and call nursing for assist in room He has agreed to use walking stick at home Pt and his in agreement. Total time spent with patient: 30 minutes- eval Total timed interventions: 0 minutes AMY RAINEY, PT 08/20/2012 Pager: [phone] Physical Therapy Rehabilitation Department Plan of Care - Maribeth Gomez RN - 08/20/2012 7:01 AM EDT Pt has baseline plantars warts, I've tried to dig out myself [r foot] on balls of feet hi. Hi heels skin dried, minor sloughing of skin during assessment. Pt educated re potential of skin breakdownon heels r/t being in bed for extended periods of time, pt encouraged to elevate heels off bed during shift, pt complied. Problem: Trauma/Injury Risk (Adult, Obstetric) Goal: Trauma/Injury Risk: Absence of Trauma/Injury/Falls Outcome: Present (see interventions, notes) Pt has recent hx of falls at home. Bed alarm activated, at bedside. Pt forgetful re calling appropriately for assistance though sits at edge of bed when bed alarm goes off and waits for staff to assist. Initially pt used walker to get to/from bathroom, by end of shift pt standby assist with IV pole (standby for assistance with extension tubing, verbal cues). Pt independent with bed mobility. Continue purposeful rounding to anticipate patient needs. Problem: Pain Chronic (Adult, Pediatric, Obstetric) Goal: Chronic Pain: Acceptable Pain Control/Comfort Level - Pain Chronic (Adult, Pediatric, Obstetric) Outcome: Present (see interventions, notes) Pt reports pain hi in legs throughout shift, pt unable to verbalize current pain or pain goal usingnumbers scale. Scheduled pain meds given as ordered, pt concerned at getting off-schedule with methadone, will alert oncoming RN to give 0900 dose at 0800. Continue purposeful rounding to anticipate and treat pain as appropriate. Problem: Skin Integrity Impairment, Risk/Actual (Adult, Obstetric) Goal: Skin Integrity Impairment, Risk/Actual: Skin Integrity/Wound Healing Outcome: Absent and monitoring Skin noted to be intact. Pt independent with bed mobility, uses call miller appropriately, able to make wants and needs known to staff. Pt verbalizes understanding of importance of repositioning in bed to prevent skin breakdown. Problem: Respiratory Insufficiency (Adult, Obstetric) Goal: Respiratory Insufficiency: Effective Respiration Outcome: Present (see interventions, notes) No cough noted or reported. RML and RLL lung sounds coarse, slight crackles. Other lobes clear. Titrated pt from 3L NC to 1L NC during shift. Sats remain mid to high 90s. Pt's respirations increase during ambulation though no significant change in sat level noted via Masimo. Droplet precautions initiated and maintained. Miscellaneous - Provider, Scanning - 08/20/2012 12:48 AM EDT Miscellaneous - Provider, Scanning - 08/20/2012 12:29 AM EDT ED Triage - Cortney Mojica RN - 08/19/2012 5:58 PM EDT Patient BIB for AMS that has been worsening over the last week. Patient needed max assist out of the car on arrival. states he has been talking to himself and ? other people who aren't there. Patient with slurred speech and disorientation. Patient denies ETOH/ drugs and states he did not recently stop drinking abruptly. documented in this encounter Plan of Treatment Upcoming Encounters Date Type Specialty Care Team Description 12/11/2021 Appointment Radiology 12/11/2021 Office Visit Orthopaedics Marion Tavera APRN [facility] ORTHOPAEDIC SURG [place], [place] [address] (Wo rk) 01/15/2022 Appointment Radiology Stiven Cervantes MD [facility] Pulmonary Medici [place], [place] [address] (Wo rk) Scheduled Procedures Name Priority Associated Diagnoses Date/Time DEBRIDEMENT SKIN, SUBCU, MUSCLE, R great toe amp utation, wound LOWER EXTREMITY (WRVU 2.7) closure MODIFIER WOUND VAC R great toe amputation, wound closure documented as of this encounter Procedures Procedure Name Priority Date/Time Associated Comments Diagnosis NUCLEATED RED BLOOD Routine 08/21/2012 3:42 AM Re sults for this CELLS EDT procedure are i n the results section. DIFFERENTIAL, Routine 08/21/2012 3:42 AM Results for this AUTOMATED EDT procedure are i n the results section. CBC (WITH DIFF) Routine 08/21/2012 3:42 AM Result s for this EDT procedure are i n the results section. BASIC METABOLIC PANEL Routine 08/21/2012 3:42 AM Results for this (NON-FASTING) EDT procedure are in the results section. METHADONE, URINE, Routine 08/20/2012 10:23 Result s for this CONFIRMATION PM EDT procedure are i n the results section. PROTEIN Routine 08/20/2012 10:23 Results for this ELECTROPHORESIS, PM EDT procedure a re in URINE, RANDOM the results section. BENZODIAZEPINE, URINE Routine 08/20/2012 10:23 Re sults for this CONFIRMATION PM EDT procedure are i n the results section. RAPID DRUG SCREEN W/O Routine 08/20/2012 10:23 Re sults for this CONFIRMATION, URINE PM EDT procedur e are in the results section. US ABDOMEN LIMITED Routine 08/20/2012 3:49 PM Res ults for this WITH VASCULAR EDT procedure are in the results section. AFP TUMOR MARKER Routine 08/20/2012 1:47 PM Resul ts for this EDT procedure are i n the results section. TSH Routine 08/20/2012 1:47 PM Results f or this EDT procedure are i n the results section. PROTEIN Routine 08/20/2012 1:47 PM Results f or this ELECTROPHORESIS, EDT procedure a re in SERUM the results section. FOLATE, SERUM Routine 08/20/2012 1:47 PM Results for this EDT procedure are i n the results section. VITAMIN B12 Routine 08/20/2012 1:47 PM Results f or this EDT procedure are i n the results section. NUCLEATED RED BLOOD Routine 08/20/2012 3:34 AM Re sults for this CELLS EDT procedure are i n the results section. DIFFERENTIAL, Routine 08/20/2012 3:34 AM Results for this AUTOMATED EDT procedure are i n the results section. CBC (WITH DIFF) Routine 08/20/2012 3:34 AM Result s for this EDT procedure are i n the results section. BASIC METABOLIC PANEL Routine 08/20/2012 3:34 AM Results for this (NON-FASTING) EDT procedure are in the results section. URINALYSIS WITH STAT 08/19/2012 8:00 PM Result s for this REFLEX CULTURE EDT procedure are in the results section. URINE CULTURE STAT 08/19/2012 8:00 PM Results for this EDT procedure are i n the results section. BLOOD CULTURE STAT 08/19/2012 6:40 PM Results for this EDT procedure are i n the results section. XR CHEST ONE VIEW STAT 08/19/2012 6:37 PM Resu lts for this EDT procedure are i n the results section. SCAN, PERIPHERAL STAT 08/19/2012 6:15 PM Resul ts for this BLOOD EDT procedure are i n the results section. NUCLEATED RED BLOOD STAT 08/19/2012 6:15 PM Re sults for this CELLS EDT procedure are i n the results section. DIFFERENTIAL, STAT 08/19/2012 6:15 PM Results for this AUTOMATED EDT procedure are i n the results section. CREATININE Routine 08/19/2012 6:15 PM Results f or this EDT procedure are i n the results section. BLOOD CULTURE STAT 08/19/2012 6:15 PM Results for this EDT procedure are i n the results section. PROTHROMBIN TIME STAT 08/19/2012 6:15 PM Resul ts for this EDT procedure are i n the results section. CBC (WITH DIFF) STAT 08/19/2012 6:15 PM Result s for this EDT procedure are i n the results section. BUN STAT 08/19/2012 6:15 PM Results f or this EDT procedure are i n the results section. TROPONIN STAT 08/19/2012 6:15 PM Results f or this EDT procedure are i n the results section. LACTATE, PLASMA Routine 08/19/2012 6:15 PM Result s for this EDT procedure are i n the results section. GLUCOSE, RANDOM STAT 08/19/2012 6:15 PM Result s for this EDT procedure are i n the results section. CK STAT 08/19/2012 6:15 PM Results f or this EDT procedure are i n the results section. AMMONIA Routine 08/19/2012 6:15 PM Results f or this EDT procedure are i n the results section. HEPATIC FUNCTION STAT 08/19/2012 6:15 PM Resul ts for this PANEL EDT procedure are i n the results section. ELECTROLYTES PANEL STAT 08/19/2012 6:15 PM Res ults for this EDT procedure are i n the results section. EKG 12-LEAD STAT 08/19/2012 6:07 PM Results f or this EDT procedure are i n the results section. documented in this encounter Results (ABNORMAL) Differential, Automated (08/21/2012 3:42 AM EDT) [facility] Method Time Signature Neutrophils % 72.4 (H) 34.0 - CERNER 71.0 % MILLENNIUM Neutr Abs (ANC) 7.93 (H) 1.50 - CERNER 6.30 MILLENNIUM x10(3)/mc L Lymphocytes % 14.1 (L) 19.0 - CERNER 53.0 % MILLENNIUM Lymphocytes Abs 1.5 1.0 - 3.6 CERNER x10(3)/mc MILLENNIUM L Monocytes % 11.5 4.0 - CERNER 13.0 % MILLENNIUM Monocyte Abs 1.3 (H) 0.2 - 1.0 CERNER x10(3)/mc MILLENNIUM L Eosinophils % 1.4 0.0 - 7.0 CERNER % MILLENNIUM Eosinophils Abs 0.2 0.0 - 0.5 CERNER x10(3)/mc MILLENNIUM L Basophils % 0.2 0.0 - 2.0 CERNER % MILLENNIUM Basophils Abs 0.0 0.0 - 0.2 CERNER x10(3)/mc MILLENNIUM L Immature Gran % 0.40 0.00 - CERNER 0.66 % MILLENNIUM Comment: Immature granulocytes(IG's)percentage an d absolute count will include metamyelocytes, myelocytes, and promyelo cytes. Blood smears from CBCs yielding IG's will be scanned manually for concangelito dantarah. If this scan disagrees with the automated IG or if promyelocytes are not ed, a manual differential will be performed. Shannan Gran Abs 0.04 0.00 - 0.05 x10(3)/mcL CER NER MILLENNIUM Specimen Anatomical Collection Method Collection Time Receive d Time (Source) Location / / Volume Laterality Blood specimen 08/21/2012 3:42 AM 013 4:05 (specimen) EDT AM EDT Brian Hylton III, MD HEMATOLOGY ORDERABLES Performing Organization Address City/State/ZIP Code Phon e Number [place] [id number] CERNER MILLENNIUM Nucleated Red Blood Cells (08/21/2012 3:42 AM EDT) athologist Signature nRBC % Auto 0.0 0.0 - 0.2 CERNER % MILLENNIUM nRBC Abs Auto 0.000 0.000 - CERNER 0.012 MILLENNIUM x10(3)/mcL Specimen Anatomical Collection Method Collection Time Receive d Time (Source) Location / / Volume Laterality Blood specimen 08/21/2012 3:42 AM 013 4:05 (specimen) EDT AM EDT Resulting Agency Comment Spec In Lab Brian Hylton III, MD HEMATOLOGY ORDERABLES Performing Organization Address City/State/ZIP Code Phon e Number [place] [phone] CERNER MILLENNIUM (ABNORMAL) Basic Metabolic Panel (non-fasting) (08/21/2012 3:42 AM EDT) athologist Signature Glucose Lvl 58 (L) 60 - 199 CERNER mg/dL MILLENNIUM Comment: Diabetes: >=200 mg/dL plus symp toms BUN 8 (L) 10 - 20 mg/dL CERNER MILLENNIU M Creatinine 0.81 0.80 - 1.50 mg/dL CERNER MILL ENNIUM Comment: Please note that the pediatric reference intervals supplied above were not validated at [facility]. Results from pediatri c patients should be interpreted in conjunction to the patient's age, height and muscle mass. Sodium 136 135 - 145 mmol/L CERNER GERBER NIUM Potassium 4.3 3.5 - 5.0 mmol/L CERNER GERBER NIUM Comment: Please note: ??Patients with WBC >100,00 0 may have falsely elevated Potassium levels. ??For accurate Potassium quantif ication in these patients send serum separator tube (gold top) for subsequent determinations. ??Contact the Clinical Chemistry Laboratory if there are any qu estions. Chloride 101 98 - 107 mmol/L CERNER MILLENN IUM CO2 22 22 - 31 mmol/L CERNER MILLENNI UM Anion Gap 13 5 - 15 mmol/L CERNER MILLENNIU M Calcium 9.2 8.5 - 10.5 mg/dL CERNER GERBER NIUM Estimated GFR >60 >=60 CERNER MILLENNIU M Comment: The National Kidney Disease Education Pr ogram (NKDEP) has recommended all laboratories report estimated GFR (eGFR) along with plasma creatinine measurements to assist you with recognit ion of early kidney disease. Caveats: ??Plasma creatinine should be a t steady-state (unchanged within the past week). For patient s multiply eGFR by 1.2. The MDRD equation was developed using patients be tween the ages of 18 and 70 years. ?? The MDRD equation has not been validated for patients < 18 years of age and should not be used to assess renal function in the pediatric population. ??The MDRD eGFR equation will also overestimate the true GFR of patients above the age of 70. ??This overestimation is variable bu t increases with age. At present, NKDEP does NOT recommend usi ng the MDRD equation for drug dosing purposes and pharmacists should continue to use their current dosing methods. In addition, numerical eGFR values great er than 60 ml/min/1.73 square meters should be treated as > 60, and not an ex act number due to greater inaccuracies at these higher values. Per NKDEP, they classify normal renal function as any GFR >60ml/min/1.73 square meters; chronic kidney disease wh en GFR <60, and renal failure when GFR <15. ??This calculation may not be valid for patients with atypical muscle mass (very lean or obese), acute renal failur e, and in patients with diabetic kidney disease. References: http://nkdep.nih.gov/resources/NKDEP_Sug gestn4Labs_0606_508.pdf http://www.kidney.org/professionals/kls/ pdf/faq_gfr.pdf Yaquelin K, Herber NA, Ranjit AK, Blaine TS, Valeria AD, Basil AISHWARYA. Relative performance of the MDRD and CKD-EPI equa tions for estimating glomerular filtration rate among patients with vari ed clinical presentations. Clin J Am Soc Nephrol;6:1963-72. Specimen Anatomical Collection Method Collection Time Receive d Time (Source) Location / / Volume Laterality Blood specimen 08/21/2012 3:42 AM 013 4:05 (specimen) EDT AM EDT Resulting Agency Comment Spec In Lab Brian Hylton III, MD CHEMISTRY ORDERABLES Performing Organization Address City/State/[place] [address] CERNER MILLENNIUM (ABNORMAL) CBC (with Diff) (08/21/2012 3:42 AM EDT) P athologist Signature WBC 10.9 (H) 4.0 - 10.0 CERNER x10(3)/mcL MILLENNIUM RBC 3.44 (L) 4.63 - CERNER 6.08 MILLENNIUM x10(6)/mcL Hemoglobin 11.7 (L) 13.7 - CERNER 17.5 gm/dL MILLENNIUM Hematocrit 35.2 (L) 40.0 - CERNER 51.0 % MILLENNIUM MCV 102.3 (H) 79.0 - CERNER 92.0 fL MILLENNIUM MCH 34.0 (H) 25.6 - CERNER 32.2 pg MILLENNIUM MCHC 33.2 32.0 - CERNER 36.5 gm/dL MILLENNIUM Platelets 395 (H) 145 - 370 CERNER x10(3)/mcL MILLENNIUM RDWSD 52.7 (H) 35.0 - CERNER 46.0 fL MILLENNIUM RDWCV 14.1 10.9 - CERNER 14.4 % MILLENNIUM MPV 9.6 9.0 - 12.0 CERNER fL MILLENNIUM Specimen Anatomical Collection Method Collection Time Receive d Time (Source) Location / / Volume Laterality Blood specimen 08/21/2012 3:42 AM 013 4:05 (specimen) EDT AM EDT Resulting Agency Comment Spec In Lab Brian Hylton III, MD HEMATOLOGY ORDERABLES Performing Organization Address [facility]/[place] [address] CERNER MILLENNIUM Methadone, Urine Confirmation (08/20/2012 10:23 PM EDT) Patholo gist Method Time Signature U Meth Conf CERNER Test ?Result ?? Flag ??Unit ?? RefValue MILLENNIUM Drug of Abuse, Methadone Conf, U ??GC/MS Confirmation - ?Positive ?Ne gative ?Methadone ??Methadone ? 7788 ? ng/mL ??Cutoff: <100 This report is intended for use in clinical monitoring and management of patients. It is not intended for use in employment-related drug testing. Test Performed by: [facility] [address], [place], [place] [address] [employer] Tester: Berna Martino, Ph.D. Specimen Anatomical Collection Method Collection Time Receive d Time (Source) Location / / Volume Laterality Urine specimen 08/20/2012 10:23 04/ 3 (specimen) PM EDT 12:08 PM EDT Resulting Agency Comment Spec In Lab Bridgett Rush MD URINE ORDERABLES Performing Organization Address City/State/ZIP Code Phon e Number [address] CERNER [facility] Benzodiazepine, Urine Quantitative (08/20/2012 10:23 PM EDT) [facility] Method Time Signature U Benzo Conf CERNER Test ?Result ?? Flag ??Unit ?? RefValue MILLENNIUM Drug of Abuse, Benzo Conf, U ??GC/MS Confirmation - ?Positive ?Benzodiazepine ??Lorazepam ? Negative ? ng/mL ?? Cutoff: <100 ??Nordiazepam ? 172 ?ng/mL ??Cutoff: <100 ??Oxazepam ?974 ?ng/mL ??Cutoff: <100 ??Temazepam ? 254 ?ng/ mL ??Cutoff: <100 ??FV-Fnquf-Wjmyutdqfw ? Negative ? ng/mL ??Cutof f: <100 ??4-TH-Dfzyfzvfoe ? Negative ? ng/mL ??Cut off: <100 ??9-LE-Telpijoriodfz ?Negative ? ng/mL ??Cuto ff: <50 ??Alpha OH-Alprazolam ? Negative ? ng/mL ??Cutof f: <100 ??Ijzyh-MJ-Sdwkcukjq ?Negative ? ng/mL ??Cuto ff: <100 This report is intended for use in clinical monitoring and management of patients. It is not intended for use in employment-related drug testing. Test Performed by: [facility] [address] [employer] Tester: Berna Martino, Ph.D. Specimen Anatomical Collection Method Collection Time Receive d Time (Source) Location / / Volume Laterality Urine specimen 08/20/2012 10:23 3 (specimen) PM EDT 12:08 PM EDT Resulting Agency Comment Spec In Lab Bridgett Rush MD URINE ORDERABLES Performing Organization Address City/State/[place] [address] CERNER MILLENNIUM (ABNORMAL) Rapid Qual Drug Screen, Urine ([facility]) (08/20/2012 10:23 PM EDT) [facility] Method Time Signature BRITTNEE Marijuana None None CERNER Metabolites Scr Detected Detected MILLENNIUM Comment: Please note that as of 05/08/2012 the te sting device changed to the PROFILE-V MEDTOXScan Drugs of Abuse Test System. The marijuana metabolites screen detects the THC Metabolite (79-vxu-2-carboxy- 9-THC) ??at concentrations >50 ng/mL. Be aware that this is only a QUALITATIVE SCREEN and must be used in conjunction with your clinical assessment of the pat ient. ??Results are NOT routinely confirmed by highly-defined methods, and are therefore reported as presumptive positive screens as such qualitative SC REEN RESULTS CANNOT BE USED FOR MEDICO-LEGAL purposes. ??As with any earnest litative drug screening device, there can be occasional false positive reading s from similar or dissimilar cross-reacting drugs. BRITTNEE Phencyclidine Scr None Detected None Detected CERNER MILLENNIUM Comment: Please note that as of 05/08/2012 the te sting device changed to the PROFILE-V MEDTOXScan Drugs of Abuse Test System. The phencyclidine screen detects phencyc lidine at concentrations >25 ng/mL. Be aware that this is only a QUALITATIVE SCREEN and must be used in conjunction with your clinical assessment of the pat ient. ??Results are NOT routinely confirmed by highly-defined methods, and are therefore reported as presumptive positive screens as such qualitative SC REEN RESULTS CANNOT BE USED FOR MEDICO-LEGAL purposes. ??As with any earnest litative drug screening device, there can be occasional false positive reading s from similar or dissimilar cross-reacting drugs. [place] Cocaine Metabolites Scr None Detected None Detected CERNER MILLENNIUM Comment: Please note that as of 05/08/2012 the te sting device changed to the PROFILE-V MEDTOXScan Drugs of Abuse Test System. The cocaine metabolites screen detects b enzoylecgonine (Cocaine Metabolite) at concentrations >150 ng/mL. Be aware that this is only a QUALITATIVE SCREEN and must be used in conjunction with your clinical assessment of the pat ient. ??Results are NOT routinely confirmed by highly-defined methods, and are therefore reported as presumptive positive screens as such qualitative SC REEN RESULTS CANNOT BE USED FOR MEDICO-LEGAL purposes. ??As with any earnest litative drug screening device, there can be occasional false positive reading s from similar or dissimilar cross-reacting drugs. [place] Methamphetamines Scr None Detected None Detected CERNER MILLENNIUM Comment: Please note that as of 05/08/2012 the te sting device changed to the PROFILE-V MEDTOXScan Drugs of Abuse Test System. The methamphetamine screen detects d-met hamphetamine at concentrations >500 ng/mL. Be aware that this is only a QUALITATIVE SCREEN and must be used in conjunction with your clinical assessment of the pat ient. ??Results are NOT routinely confirmed by highly-defined methods, and are therefore reported as presumptive positive screens as such qualitative SC REEN RESULTS CANNOT BE USED FOR MEDICO-LEGAL purposes. ??As with any earnest litative drug screening device, there can be occasional false positive reading s from similar or dissimilar cross-reacting drugs. [place] Opiates Scr None Detected None Detected CERNATACHA MILLENNIUM Comment: Please note that as of 05/08/2012 the te sting device changed to the PROFILE-V MEDTOXScan Drugs of Abuse Test System. The opiates screen detects opiates at a concentration >100 ng/mL. Be aware that this is only a QUALITATIVE SCREEN and must be used in conjunction with your clinical assessment of the pat ient. ??Results are NOT routinely confirmed by highly-defined methods, and are therefore reported as presumptive positive screens as such qualitative SC REEN RESULTS CANNOT BE USED FOR MEDICO-LEGAL purposes. ??As with any earnest litative drug screening device, there can be occasional false positive reading s from similar or dissimilar cross-reacting drugs. [place] Amphetamines Scr None Detected None Detected C FARIDA PEREIRAIUM Comment: Please note that as of 05/08/2012 the te sting device changed to the PROFILE-V MEDTOXScan Drugs of Abuse Test System. The amphetamine screen detects d-ampheta mine at concentrations >500 ng/mL. Be aware that this is only a QUALITATIVE SCREEN and must be used in conjunction with your clinical assessment of the pat ient. ??Results are NOT routinely confirmed by highly-defined methods, and are therefore reported as presumptive positive screens as such qualitative SC REEN RESULTS CANNOT BE USED FOR MEDICO-LEGAL purposes. ??As with any earnest litative drug screening device, there can be occasional false positive reading s from similar or dissimilar cross-reacting drugs. [place] Benzodiazepines Scr Presumptive Pos (A) None Detected AMINA MILLENNIUM Comment: Please note that as of 05/08/2012 the te sting device changed to the PROFILE-V MEDTOXScan Drugs of Abuse Test System. The benzodiazepines screen detects benzo diazepines at concentrations >150 ng/mL. Not all benzodiazepines cross-santino ct equally with antibody used in this screen. Due to the low dosage of clonaze patricia, false negatives may be obtained due to low concentration of clonazepam m etabolites. Be aware that this is only a QUALITATIVE SCREEN and must be used in conjunction with your clinical assessment of the pat ient. ??Results are NOT routinely confirmed by highly-defined methods, and are therefore reported as presumptive positive screens as such qualitative SC REEN RESULTS CANNOT BE USED FOR MEDICO-LEGAL purposes. ??As with any earnest litative drug screening device, there can be occasional false positive reading s from similar or dissimilar cross-reacting drugs. [place] Tricyclics Scr None Detected None Detected CER NER MILLENNIUM Comment: Please note that as of 05/08/2012 the te sting device changed to the PROFILE-V MEDTOXScan Drugs of Abuse Test System. The tricyclics screen detects tricyclic antidepressants at concentrations >300 ng/mL. Not all tricyclics cross-react eq ually with the antibody used in this screen. Be aware that this is only a QUALITATIVE SCREEN and must be used in conjunction with your clinical assessment of the pat ient. ??Results are NOT routinely confirmed by highly-defined methods, and are therefore reported as presumptive positive screens as such qualitative SC REEN RESULTS CANNOT BE USED FOR MEDICO-LEGAL purposes. ??As with any earnest litative drug screening device, there can be occasional false positive reading s from similar or dissimilar cross-reacting drugs. [place] Methadone Scr Presumptive Pos (A) None Detected CERNER MILLENNIUM Comment: Please note that as of 05/08/2012 the te sting device changed to the PROFILE-V MEDTOXScan Drugs of Abuse Test System. The methadone screen detects methadone a t concentrations >200 ng/mL. Be aware that this is only a QUALITATIVE SCREEN and must be used in conjunction with your clinical assessment of the pat ient. ??Results are NOT routinely confirmed by highly-defined methods, and are therefore reported as presumptive positive screens as such qualitative SC REEN RESULTS CANNOT BE USED FOR MEDICO-LEGAL purposes. ??As with any earnest litative drug screening device, there can be occasional false positive reading s from similar or dissimilar cross-reacting drugs. [place] Barbiturates Scr None Detected None Detected C ERNER MILLENNIUM Comment: Please note that as of 05/08/2012 the te sting device changed to the PROFILE-V MEDTOXScan Drugs of Abuse Test System. The barbiturates screen detects barbitur ate at concentrations >200 ng/mL. Note: Not all barbiturates cross-react equally with antibody used in this screen. Be aware that this is only a QUALITATIVE SCREEN and must be used in conjunction with your clinical assessment of the pat ient. ??Results are NOT routinely confirmed by highly-defined methods, and are therefore reported as presumptive positive screens as such qualitative SC REEN RESULTS CANNOT BE USED FOR MEDICO-LEGAL purposes. ??As with any earnest litative drug screening device, there can be occasional false positive reading s from similar or dissimilar cross-reacting drugs. [place] Oxycodone Scr None Detected None Detected CERN ER MILLENNIUM Comment: Please note that as of 05/08/2012 the te sting device changed to the PROFILE-V MEDTOXScan Drugs of Abuse Test System. The oxycodone screen detects oxycodone a t concentrations >100 ng/mL and oxymorphone >250 ng/ml. Be aware that this is only a QUALITATIVE SCREEN and must be used in conjunction with your clinical assessment of the pat ient. ??Results are NOT routinely confirmed by highly-defined methods, and are therefore reported as presumptive positive screens as such qualitative SC REEN RESULTS CANNOT BE USED FOR MEDICO-LEGAL purposes. ??As with any earnest litative drug screening device, there can be occasional false positive reading s from similar or dissimilar cross-reacting drugs. [place] Propoxyphene Scr None Detected None Detected C ERNER MILLENNIUM Comment: Please note that as of 05/08/2012 the te sting device changed to the PROFILE-V MEDTOXScan Drugs of Abuse Test System. The propoxyphene screen detects propoxyp hene at concentrations >300 ng/mL. Be aware that this is only a QUALITATIVE SCREEN and must be used in conjunction with your clinical assessment of the pat ient. ??Results are NOT routinely confirmed by highly-defined methods, and are therefore reported as presumptive positive screens as such qualitative SC REEN RESULTS CANNOT BE USED FOR MEDICO-LEGAL purposes. ??As with any earnest litative drug screening device, there can be occasional false positive reading s from similar or dissimilar cross-reacting drugs. [place] Buprenorphine Scr None Detected None Detected CERNER MILLENNIUM Comment: Please note that as of 05/08/2012 the te sting device changed to the PROFILE-V Ad Dynamocan Drugs of Abuse Test System. The buprenorphine screen detects bupreno rphine at concentrations >10 ng/mL. Be aware that this is only a QUALITATIVE SCREEN and must be used in conjunction with your clinical assessment of the pat ient. ??Results are NOT routinely confirmed by highly-defined methods, and are therefore reported as presumptive positive screens as such qualitative SC REEN RESULTS CANNOT BE USED FOR MEDICO-LEGAL purposes. ??As with any earnest litative drug screening device, there can be occasional false positive reading s from similar or dissimilar cross-reacting drugs. Specimen Anatomical Collection Method Collection Time Receive d Time (Source) Location / / Volume Laterality Urine specimen 08/20/2012 10:23 3 1:09 (specimen) PM EDT AM EDT Resulting Agency Comment Spec In Lab Bridgett Rush MD URINE ORDERABLES Performing Organization Address City/[facility] Phon e Number [address] CERNER MILLENNIUM Protein Electrophoresis, urine, random (08/20/2012 10:23 PM EDT) [facility] Method Time Signature U Protein Ran 7 0 - 12 mg/dL CERNER MILLENNIUM U Albumin 15 % total CERNER MILLENNIUM U Globulin 85 % total CERNER MILLENNIUM U M Band None None CERNER Detected Detected % MILLENNIUM total U Scan See Note CERNER MILLENNIUM Comment: Please see scanned report in Ch art Review under the D-[facility] Laboratory Heading. Specimen Anatomical Collection Method Collection Time Receive d Time (Source) Location / / Volume Laterality Urine specimen 08/20/2012 10:23 3 (specimen) PM EDT 11:16 PM EDT Narrative This result has an attachment that is no t available. Resulting Agency Comment Spec In Lab Bridgett Rush MD URINE ORDERABLES Performing Organization Address [facility] Phon e Number [address] CERNER MILLENNIUM US abdomen limited with vascular (08/20/2012 3:49 PM EDT) Anatomical Region Laterality Modality Abdomen Ultrasound Specimen (Source) Anatomical Collection Method Collection Time Re ceived Time Location / / Volume Laterality 08/20/2012 3:49 PM EDT Narrative 08/20/2012 3:58 PM EDT ?Abdominal Duplex ? (Signed Final 08/20/2012 03 :57 pm) Patient Info ID: ? [id number] ? : ??[birth year] (56 yrs) Name: ? SOLEDAD RAMOS ?Visit Date: 08/20/2012 03:45 pm Performed By Performed By: ?RUBENS Valdez ??Debbie metcalf Attending: ? Cecilia DYSON, Krystle J. Referred By: ? BRIDGETT RUSH MD Service(s) Provided UABDLIMVAS - Abdominal Limited Survey 2 ? [id number], [id number] Organ Quadrant with Vascular - [id number], [id number] Indications Patient with Heptatis C and cirrhosis p resents with altered mental status.; Assess for portal vein and hepatic vein thrombosis. ----- Liver ----- Right Lobe Length: ?? 17.5 ?? cm Echogenicity/Echotexture: ?? Normal Portal Veins: ?Patent Hepatic Veins: ?? Patent Comment: ?No hepatic lesions. Gallbladder Cholelithiasis: ?No stones visua lized Wall Thickness: ?Normal wall thi ckness Focal Tenderness: ?No positive Murp hy's sign Comment: ?Adenomyomatosis. ??Some c alcifications in the ? sessile polyps. Biliary Tract Intrahepatic Ducts: ?? Normal Extrahepatic Ducts: ?? Normal Common Duct Size: ? 4 ? mm -------- Pancreas -------- Head: ? Normal Tail: ? Poorly visua lized due to overlying bowel Body: ? Limited view s Right Kidney Size (cm) ?L: ??11.5 Cortical Thickness: ?Normal Cortical Echogenicity: ?? Normal Hydronephrosis: ?No sonogr aphic evidence --- IVC --- Proximal portion, normal in caliber Hepatic-Portal Duplex Main Portal Vein ? PSV: ?? 25.1 ? cm/s Waveform: ? Patent Hepatopetal Hepatic Artery ?PSV: ?? 14 2 ?cm/s ?EDV: ?? 44 ? cm/s Hepatic Artery ?RI: ?0 .69 Right Hepatic Vein Waveform: ?Pa tent Middle Hepatic Vein Waveform: ? Pat ent Left Hepatic Vein Waveform: ? Pa tent Impression Ultrasound - Abdomen Limited - Summary No hepatic lesions Multiple sessile GB polyps. ??No ascite s. No portal vein thrombosis. No ascites. No varices. Ultrasound - Vascular evaluation - Summ linnea The hepatic veins, portal veins and hep atic artery are patent with normal directional flow. I ??viewed the images and agree with souleymane beyer above interpretation. Thank you for allowing us to participat e in the care of SOLEDAD RAMOS. Please do not hesitate to call if you have any questions. ?Krystle Brooks MD Electronically Signed Final Report ?? 03:57 pm Procedure Note Krystle Brooks MD - 08/20/2012Forma tting of this note might be different from the original. Abdominal Duplex (Signed Final 08/20/2012 03:57 pm) Patient Info ID: [id number] : [birth year] (56 yrs ) Name: SOLEDAD RAMOS Visit Date: 2012 03:45 pm Performed By Performed By: RUBENS Valdez Attending: Krystle Brooks MD. Referred By: BRIDGETT RUSH MD Service(s) Provided UABDLIMVAS - Abdominal Limited Survey 2 [id number], [id number] Organ Quadrant with Vascular - [id number], [id number] Indications Patient with Heptatis C and cirrhosis p resents with altered mental status.; Assess for portal vein and hepatic vein thrombosis. ----- Liver ----- Right Lobe Length: 17.5 cm Echogenicity/Echotexture: Normal Portal Veins: Patent Hepatic Veins: Patent Comment: No hepatic lesions. Gallbladder Cholelithiasis: No stones visualized Wall Thickness: Normal wall thickness Focal Tenderness: No positive Blair's sign Comment: Adenomyomatosis. Some calcific ations in the sessile polyps. Biliary Tract Intrahepatic Ducts: Normal Extrahepatic Ducts: Normal Common Duct Size: 4 mm -------- Pancreas -------- Head: Normal Tail: Poorly visualized due to overlyin g bowel Body: Limited views Right Kidney Size (cm) L: 11.5 Cortical Thickness: Normal Cortical Echogenicity: Normal Hydronephrosis: No sonographic evidence --- IVC --- Proximal portion, normal in caliber Hepatic-Portal Duplex Main Portal Vein PSV: 25.1 cm/s Waveform: Patent Hepatopetal Hepatic Artery PSV: 142 cm/s EDV: 44 cm /s Hepatic Artery RI: 0.69 Right Hepatic Vein Waveform: Patent Middle Hepatic Vein Waveform: Patent Left Hepatic Vein Waveform: Patent Impression Ultrasound - Abdomen Limited - Summary No hepatic lesions Multiple sessile GB polyps. No ascites. No portal vein thrombosis. No ascites. No varices. Ultrasound - Vascular evaluation - Summ linnea The hepatic veins, portal veins and hep atic artery are patent with normal directional flow. I viewed the images and agree with the above interpretation. Thank you for allowing us to participat e in the care of SOLEDAD RAMOS. Please do not hesitate to call if you have any questions. Krystle Brooks MD Electronically Signed Final Report 08/20 03:57 pm Bridgett Rush MD IM US GEN ORDERABLES AFP tumor marker (08/20/2012 1:47 PM EDT) athologist Signature AFP 1 <=5 ng/mL [facility] Comment: Note new Reference Range as of 09-10-201 2. Reference: Immulite 2000 AFP package ins ert ([id number], 2009-02-02) Specimen Anatomical Collection Method Collection Time Receive d Time (Source) Location / / Volume Laterality Blood specimen 08/20/2012 1:47 PM 013 8:29 (specimen) EDT AM EDT Resulting Agency Comment Spec In Lab Bridgett Rush MD CHEMISTRY ORDERABLES Performing Organization Address City/[facility]/ZIP Code Phon e Number [address] CERNER MILLENNIUM (ABNORMAL) Folate, serum (08/20/2012 1:47 PM EDT) athologist Signature Folate Lvl 3.6 (L) 4.6 - 34.8 CERNER ng/mL MILLENNIUM Specimen Anatomical Collection Method Collection Time Receive d Time (Source) Location / / Volume Laterality Blood specimen 08/20/2012 1:47 PM 013 1:58 (specimen) EDT PM EDT Resulting Agency Comment Spec In Lab Bridgett Rush MD CHEMISTRY ORDERABLES Performing Organization Address City/[facility]/ZIP Code Phon e Number [address] CERNER MILLENNIUM Vitamin B12 (08/20/2012 1:47 PM EDT) athologist Signature Vitamin B-12 323 207 - 974 CERNER pg/mL MILLENNIUM Specimen Anatomical Collection Method Collection Time Receive d Time (Source) Location / / Volume Laterality Blood specimen 08/20/2012 1:47 PM 013 1:58 (specimen) EDT PM EDT Resulting Agency Comment Spec In Lab Bridgett Rush MD CHEMISTRY ORDERABLES Performing Organization Address City/[facility]/ZIP [facility] Phon e Number [address] CERNER MILLENNIUM (ABNORMAL) Protein Electrophoresis, serum (08/20/2012 1:47 PM EDT) [facility] gist Method Time Signature Total Prot 6.2 6.1 - 8.0 CERNER Elec gm/dL MILLENNIUM Albumin Elect 2.52 (L) 3.60 - 6.00 CERNER gm/dL MILLENNIUM Alpha1-Globul 0.42 (H) 0.10 - 0.30 CERNER in gm/dL MILLENNIUM Alpha2-Globul 1.33 (H) 0.40 - 0.90 CERNER in gm/dL MILLENNIUM Beta Globulin 0.94 0.50 - 1.00 CERNER gm/dL MILLENNIUM Gamma 1.00 0.50 - 1.30 CERNER Globulin gm/dL MILLENNIUM M1 Band None None CERNER Detected Detected MILLENNIUM gm/dL Scan See Note CERNER MILLENNIUM Comment: Please see scanned report in art Review under the [facility] Laboratory Heading. Specimen Anatomical Collection Method Collection Time Receive d Time (Source) Location / / Volume Laterality Blood specimen 08/20/2012 1:47 PM 013 1:58 (specimen) EDT PM EDT Narrative This result has an attachment that is no t available. Resulting Agency Comment Spec In Lab Bridgett Rush MD CHEMISTRY ORDERABLES Performing Organization Address City/[facility]/[place] [address] CERNER MILLENNIUM TSH (08/20/2012 1:47 PM EDT) athologist Signature TSH 2.54 0.27 - 4.20 CERNER mcIU/mL MILLENNIUM Specimen Anatomical Collection Method Collection Time Receive d Time (Source) Location / / Volume Laterality Blood specimen 08/20/2012 1:47 PM 013 1:58 (specimen) EDT PM EDT Resulting Agency Comment Spec In Lab Bridgett Rush MD CHEMISTRY ORDERABLES Performing Organization Address City/[facility]/ZIP [facility] [place] [address] CERNER MILLENNIUM (ABNORMAL) Differential, Automated (08/20/2012 3:34 AM EDT) Patholo gist Method Time Signature Neutrophils % 83.4 (H) 34.0 - CERNER 71.0 % MILLENNIUM Neutr Abs (ANC) 13.83 (H) 1.50 - CERNER 6.30 MILLENNIUM x10(3)/mc L Lymphocytes % 7.7 (L) 19.0 - CERNER 53.0 % MILLENNIUM Lymphocytes Abs 1.3 1.0 - 3.6 CERNER x10(3)/mc MILLENNIUM L Monocytes % 8.4 4.0 - CERNER 13.0 % MILLENNIUM Monocyte Abs 1.4 (H) 0.2 - 1.0 CERNER x10(3)/mc MILLENNIUM L Eosinophils % 0.1 0.0 - 7.0 CERNER % MILLENNIUM Eosinophils Abs 0.0 0.0 - 0.5 CERNER x10(3)/mc MILLENNIUM L Basophils % 0.2 0.0 - 2.0 CERNER % MILLENNIUM Basophils Abs 0.0 0.0 - 0.2 CERNER x10(3)/mc MILLENNIUM L Immature Gran % 0.20 0.00 - CERNER 0.66 % MILLENNIUM Comment: Immature granulocytes(IG's)percentage an d absolute count will include metamyelocytes, myelocytes, and promyelo cytes. Blood smears from CBCs yielding IG's will be scanned manually for concor dance. If this scan disagrees with the automated IG or if promyelocytes are not ed, a manual differential will be performed. Shannan Gran Abs 0.04 0.00 - 0.05 x10(3)/mcL CER NER MILLENNIUM Specimen Anatomical Collection Method Collection Time Receive d Time (Source) Location / / Volume Laterality Blood specimen 08/20/2012 3:34 AM 013 3:41 (specimen) EDT AM EDT Brian Hylton III, MD HEMATOLOGY ORDERABLES Performing Organization Address City/State/ZIP Code Phon e Number [place] [id number] CERNER MILLENNIUM Nucleated Red Blood Cells (08/20/2012 3:34 AM EDT) P athologist Signature nRBC % Auto 0.0 0.0 - 0.2 CERNER % MILLENNIUM nRBC Abs Auto 0.000 0.000 - CERNER 0.012 MILLENNIUM x10(3)/mcL Specimen Anatomical Collection Method Collection Time Receive d Time (Source) Location / / Volume Laterality Blood specimen 08/20/2012 3:34 AM 04/11/2 013 3:41 (specimen) EDT AM EDT Resulting Agency Comment Spec In Lab Brian Hylton III, MD HEMATOLOGY ORDERABLES Performing Organization Address City/State/[place] [address] CERNER MILLENNIUM (ABNORMAL) Basic Metabolic Panel (non-fasting) (08/20/2012 3:34 AM EDT) athologist Signature Glucose Lvl 72 60 - 199 CERNER mg/dL MILLENNIUM Comment: Diabetes: >=200 mg/dL plus symp toms BUN 9 (L) 10 - 20 mg/dL CERNER MILLENNIU M Creatinine 0.85 0.80 - 1.50 mg/dL CERNER MILL ENNIUM Comment: Please note that the pediatric reference intervals supplied above were not validated at [facility]. Results from pediatri c patients should be interpreted in conjunction to the patient's age, height and muscle mass. Sodium 134 (L) 135 - 145 mmol/L CERNER GERBER NIUM Potassium 4.4 3.5 - 5.0 mmol/L CERNER GERBER NIUM Comment: Please note: ??Patients with WBC >100,00 0 may have falsely elevated Potassium levels. ??For accurate Potassium quantif ication in these patients send serum separator tube (gold top) for subsequent determinations. ??Contact the Clinical Chemistry Laboratory if there are any qu estions. Chloride 101 98 - 107 mmol/L CERNER MILLENN IUM CO2 22 22 - 31 mmol/L CERNER MILLENNI UM Anion Gap 11 5 - 15 mmol/L CERNER MILLENNIU M Calcium 8.9 8.5 - 10.5 mg/dL CERNER GERBER NIUM Estimated GFR >60 >=60 CERNER MILLENNIU M Comment: The National Kidney Disease Education Pr ogram (NKDEP) has recommended all laboratories report estimated GFR (eGFR) along with plasma creatinine measurements to assist you with recognit ion of early kidney disease. Caveats: ??Plasma creatinine should be a t steady-state (unchanged within the past week). For patient s multiply eGFR by 1.2. The MDRD equation was developed using patients be tween the ages of 18 and 70 years. ?? The MDRD equation has not been validated for patients < 18 years of age and should not be used to assess renal function in the pediatric population. ??The MDRD eGFR equation will also overestimate the true GFR of patients above the age of 70. ??This overestimation is variable bu t increases with age. At present, NKDEP does NOT recommend usi ng the MDRD equation for drug dosing purposes and pharmacists should continue to use their current dosing methods. In addition, numerical eGFR values great er than 60 ml/min/1.73 square meters should be treated as > 60, and not an ex act number due to greater inaccuracies at these higher values. Per NKDEP, they classify normal renal function as any GFR >60ml/min/1.73 square meters; chronic kidney disease wh en GFR <60, and renal failure when GFR <15. ??This calculation may not be valid for patients with atypical muscle mass (very lean or obese), acute renal failur e, and in patients with diabetic kidney disease. References: http://dep.nih.gov/resources/NKPAP_Sug gestn4Labs_0606_508.pdf http://www.kidney.org/professionals/kls/ pdf/faq_gfr.pdf Yaquelin K, Herber NA, Ranjit AK, Blaine TS, Valeria AD, Basil AISHWARYA. Relative performance of the MDRD and CKD-EPI equa tions for estimating glomerular filtration rate among patients with vari ed clinical presentations. Clin J Am Soc Nephrol;6:1963-72. Specimen Anatomical Collection Method Collection Time Receive d Time (Source) Location / / Volume Laterality Blood specimen 08/20/2012 3:34 AM 013 3:41 (specimen) EDT AM EDT Resulting Agency Comment Spec In Lab Brian Hylton III, MD CHEMISTRY ORDERABLES Performing Organization Address City/State/ZIP Code Phon e Number [place] [phone] [facility] MILLENNIUM (ABNORMAL) CBC (with Diff) (08/20/2012 3:34 AM EDT) P athologist Signature WBC 16.6 (H) 4.0 - 10.0 CERNER x10(3)/mcL MILLENNIUM RBC 3.64 (L) 4.63 - CERNER 6.08 MILLENNIUM x10(6)/mcL Hemoglobin 12.3 (L) 13.7 - CERNER 17.5 gm/dL MILLENNIUM Hematocrit 37.2 (L) 40.0 - CERNER 51.0 % MILLENNIUM MCV 102.2 (H) 79.0 - CERNER 92.0 fL MILLENNIUM MCH 33.8 (H) 25.6 - CERNER 32.2 pg MILLENNIUM MCHC 33.1 32.0 - CERNER 36.5 gm/dL MILLENNIUM Platelets 374 (H) 145 - 370 CERNER x10(3)/mcL MILLENNIUM RDWSD 52.7 (H) 35.0 - CERNER 46.0 fL MILLENNIUM RDWCV 14.0 10.9 - CERNER 14.4 % MILLENNIUM MPV 9.8 9.0 - 12.0 CERNER fL MILLENNIUM Specimen Anatomical Collection Method Collection Time Receive d Time (Source) Location / / Volume Laterality Blood specimen 08/20/2012 3:34 AM 013 3:41 (specimen) EDT AM EDT Resulting Agency Comment Spec In Lab Brian Hylton III, MD HEMATOLOGY ORDERABLES Performing Organization Address City/State/[place] [address] AMINA PEREIRAIUM Urine culture Clean Catch Urine (08/19/2012 8:00 PM EDT) [facility] Method Time Signature Urine Culture CERNER ? Patient Name: SOLEDAD RAMOS ?Ordered By : SAM[facility]EL RAJAN [facility] ? MR#: [id number] ?LOC: ??1WST ? /Sex: ??1955 (56 years), ? Male ? PROCEDURE: Urine Culture ?SOURCE: U CC ? COLLECTED: 08/19/2012 20:00 ? STARTED: 08/19/2012 20:29 ? FINAL REPORT ? Final Report ? Verified:08/20/2012 15:03 ? No growth (Less than 1,000 cfu/ml). ? Specimen (Source) Anatomical Collection Method Collection Time Re ceived Time Location / / Volume Laterality Urine specimen 08/19/2012 8:00 08/19/2012 8:29 obtained by clean PM EDT PM EDT catch procedure (specimen) Resulting Agency Comment Spec In Lab Samuel Rajan MD MICROBIOLOGY - GENERAL ORDER SILAS Performing Organization Address City/State/ZIP Code Phon e Number [place] [phone] CERNER MILLENNIUM (ABNORMAL) Urinalysis with microscopic (08/19/2012 8:00 PM EDT) [facility] Method Time Signature Glucose UA Negative Negative CERNER mg/dL MILLENNIUM Protein UA Negative mg/dL CERNER MILLENNIUM Bilirubin UA Negative Negative CERNER mg/dL MILLENNIUM Urobilinogen UA 2.0 (A) Normal mg/dL CERNER MILLENNIUM pH UA 7.0 5.0 - 8.0 CERNER MILLENNIUM Blood UA Negative mg/dL CERNER MILLENNIUM Ketones UA Negative mg/dL CERNER MILLENNIUM Nitrite UA Negative CERNER MILLENNIUM Leukocytes UA Negative mcL CERNER MILLENNIUM Appearance UA Clear Clear CERNER MILLENNIUM Spec Heidrick UA 1.005 1.002 - CERNER 1.030 MILLENNIUM Color UA Yellow Yellow CERNER MILLENNIUM RBC UA <1 0 - 3 /HPF CERNER MILLENNIUM WBC UA <1 0 - 3 /HPF CERNER MILLENNIUM Squam Epith UA <1 <=4 /HPF CERNER MILLENNIUM Specimen Anatomical Collection Method Collection Time Receive d Time (Source) Location / / Volume Laterality Urine specimen 08/19/2012 8:00 PM 013 8:20 (specimen) EDT PM EDT Resulting Agency Comment Spec In Lab Samuel Rajan MD URINE ORDERABLES Performing Organization Address City/State/[place] [address] AMINA MARTIN Blood culture (08/19/2012 6:40 PM EDT) [facility] Method Time Signature Blood Culture [facility] ? Patient Name: SOLEDAD RAMOS ?Ordere d By: AD[facility]ANNA WILSON [facility] ? MR#: [id number] ?LOC: ??ICCU ? /Sex: ??1955 (57 years), ? Male ? PROCEDURE: Blood Culture ?SOURCE: Blood ? COLLECTED: 08/19/2012 18:40 ? BODY SITE: Right Forearm ? STARTED: 08/19/2012 19:15 ? FINAL REPORT ? Final Report ? Verified:08/25/2012 15:10 ? No growth at 5 days. ? PRELIMINARY REPORT ? Preliminary Report ? Verified:2012 23:10 ? No growth at 4 days. ? Specimen Anatomical Collection Method Collection Time Receive d Time (Source) Location / / Volume Laterality Blood specimen STRUCTURE OF RIGHT 08/19/2012 6:40 PM 0 08/19/2012 7:15 (specimen) FOREARM / Unknown EDT PM EDT Resulting Agency Comment Spec In Lab Adrianna Wilson MD MICROBIOLOGY - BLOOD ORDERAB LES Performing Organization Address City/State/ZIP Code Phon e Number [place] [phone] [facility] AreaIUM XR chest PA or AP- 1 view (08/19/2012 6:37 PM EDT) Anatomical Region Laterality Modality Chest N/A Radiographic Imaging Specimen (Source) Anatomical Collection Method Collection Time Re ceived Time Location / / Volume Laterality 08/19/2012 6:37 PM EDT Narrative 08/19/2012 7:10 PM EDT Examination CHEST AP, 08/19/2012 ?? Clinical History Pt has AMS and SPO2 88% -- eval for PNA, other etiology Comparison None available. Technique Portable AP 60 degrees semi upright ches t radiograph. Findings There is a consolidative opacity with ai r bronchograms in the right mid lung zone, likely representing pneumonia. The right hemidiaphragm is elevated which is of uncertain significance and chronic ity as there is no comparison chest radiograph. The left lung appears grossl y clear. The cardiomediastinal silhouette and central pulmonary vascula r markings are within normal limits. Limited evaluation the right hilum secon becka to the adjacent consolidative opacity. Incidental note made of right A C joint arthropathy. ?? Impression 1. Pneumonia in the right upper lobe or superior segment of the right lower lobe. Follow up to radiographic resoluti on is recommended. ?? 2. Elevated right hemidiaphragm of uncer tain significance and chronicity, please clinically correlate. Prior chest radiographs, if available would be useful for comparison. Film and interpretation reviewed by the attending Procedure Note Ying Tomas MD - 08/19/2012Formatt ing of this note might be different from the original. Examination CHEST AP, 08/19/2012 Clinical History Pt has AMS and SPO2 88% -- eval for PNA, other etiology Comparison None available. Technique Portable AP 60 degrees semi upright ches t radiograph. Findings There is a consolidative opacity with ai r bronchograms in the right mid lung zone, likely representing pneumonia. The right hemidiaphragm is elevated which is of uncertain significance and chronic ity as there is no comparison chest radiograph. The left lung appears grossl y clear. The cardiomediastinal silhouette and central pulmonary vascula r markings are within normal limits. Limited evaluation the right hilum secon becka to the adjacent consolidative opacity. Incidental note made of right A C joint arthropathy. Impression 1. Pneumonia in the right upper lobe or superior segment of the right lower lobe. Follow up to radiographic resoluti on is recommended. 2. Elevated right hemidiaphragm of uncer tain significance and chronicity, please clinically correlate. Prior chest radiographs, if available would be useful for comparison. Film and interpretation reviewed by the attending Samuel Rajan MD IMG DX ORDERABLES (ABNORMAL) Differential, Automated (08/19/2012 6:15 PM EDT) [facility] Method Time Signature Neutrophils % 84.4 (H) 34.0 - CERNER 71.0 % MILLENNIUM Neutr Abs (ANC) 16.29 (H) 1.50 - CERNER 6.30 MILLENNIUM x10(3)/mc L Lymphocytes % 5.2 (L) 19.0 - CERNER 53.0 % MILLENNIUM Lymphocytes Abs 1.0 1.0 - 3.6 CERNER x10(3)/mc MILLENNIUM L Monocytes % 9.8 4.0 - CERNER 13.0 % MILLENNIUM Monocyte Abs 1.9 (H) 0.2 - 1.0 CERNER x10(3)/mc MILLENNIUM L Eosinophils % 0.1 0.0 - 7.0 CERNER % MILLENNIUM Eosinophils Abs 0.0 0.0 - 0.5 CERNER x10(3)/mc MILLENNIUM L Basophils % 0.2 0.0 - 2.0 CERNER % MILLENNIUM Basophils Abs 0.0 0.0 - 0.2 CERNER x10(3)/mc MILLENNIUM L Immature Gran % 0.30 0.00 - CERNER 0.66 % MILLENNIUM Comment: Immature granulocytes(IG's)percentage an d absolute count will include metamyelocytes, myelocytes, and promyelo cytes. Blood smears from CBCs yielding IG's will be scanned manually for concangelito dantarah. If this scan disagrees with the automated IG or if promyelocytes are not ed, a manual differential will be performed. Shannan Gran Abs 0.05 0.00 - 0.05 x10(3)/mcL CER NER MILLENNIUM Specimen Anatomical Collection Method Collection Time Receive d Time (Source) Location / / Volume Laterality Blood specimen 08/19/2012 6:15 PM 013 6:31 (specimen) EDT PM EDT Samuel Rajan MD HEMATOLOGY ORDERABLES Performing Organization Address City/State/ZIP Code Phon e Number [address] CERNER MILLENNIUM Nucleated Red Blood Cells (08/19/2012 6:15 PM EDT) P athologist Signature nRBC % Auto 0.0 0.0 - 0.2 CERNER % MILLENNIUM nRBC Abs Auto 0.000 0.000 - CERNER 0.012 MILLENNIUM x10(3)/mcL Specimen Anatomical Collection Method Collection Time Receive d Time (Source) Location / / Volume Laterality Blood specimen 08/19/2012 6:15 PM 013 6:31 (specimen) EDT PM EDT Resulting Agency Comment Spec In Lab Samuel Rajan MD HEMATOLOGY ORDERABLES Performing Organization Address City/State/ZIP Code Phon e Number [address] CERNER MILLENNIUM Scan, Peripheral Blood (08/19/2012 6:15 PM EDT) Patholo gist Method Time Signature Plat Estimate Increased CERNER MILLENNIUM RBC Morphology Abnormal CERNER MILLENNIUM Macrocytes 1-5 /HPF CERNER MILLENNIUM Rouleaux Present CERNER MILLENNIUM Specimen Anatomical Collection Method Collection Time Receive d Time (Source) Location / / Volume Laterality Blood specimen 08/19/2012 6:15 PM 013 6:31 (specimen) EDT PM EDT Resulting Agency Comment Spec In Lab Samuel Rajan MD HEMATOLOGY ORDERABLES Performing Organization Address City/State/ZIP Code Phon e Number [address] CERNER MILLENNIUM Lactic acid, plasma (08/19/2012 6:15 PM EDT) athologist [facility] Lactate 1.1 0.5 - 2.2 CERNER mmol/L MILLENNIUM Specimen Anatomical Collection Method Collection Time Receive d Time (Source) Location / / Volume Laterality Blood specimen 08/19/2012 6:15 PM 013 6:31 (specimen) EDT PM EDT Resulting Agency Comment Spec In Lab Samuel Rajan MD CHEMISTRY ORDERABLES Performing Organization Address City/State/ZIP Code Phon e Number [address] CERNER MILLENNIUM Ammonia (08/19/2012 6:15 PM EDT) athologist [facility] Ammonia 34 16 - 60 CERNER mcmol/L MILLENNIUM Specimen Anatomical Collection Method Collection Time Receive d Time (Source) Location / / Volume Laterality Blood specimen 08/19/2012 6:15 PM 013 6:31 (specimen) EDT PM EDT Resulting Agency Comment Spec In Lab Samuel Rajan MD CHEMISTRY ORDERABLES Performing Organization Address City/State/ZIP Code Phon e Number [address] CERNER MILLENNIUM (ABNORMAL) CK (08/19/2012 6:15 PM EDT) athologist [facility] CK, Total 734 (H) 0 - 200 CERNER unit/L MILLENNIUM Specimen Anatomical Collection Method Collection Time Receive d Time (Source) Location / / Volume Laterality Blood specimen 08/19/2012 6:15 PM 013 6:31 (specimen) EDT PM EDT Resulting Agency Comment Spec In Lab Samuel Rajan MD CHEMISTRY ORDERABLES Performing Organization Address City/State/ZIP Code Phon e Number [address] CERNER MILLENNIUM Troponin T (08/19/2012 6:15 PM EDT) athologist [facility] Troponin-T <0.03 <=0.03 CERNER ng/mL [facility] Comment: 0.03 ng/mL: Represents the 99th percenti le upper reference limit for normals. >0.03 ng/mL: Elevated cardiac troponin T level indicative of myocardial damage. Diagnosis of acute, evolving or recent M I requires a typical rise and gradual fall of cTnT with at least ONE of the fo llowing: a) Ischemic symptoms b) Development of pathologic Q waves on the ECG c) ECG changes indicative of eschemia (S -T segment elevation/depression) d) Coronary artery intervention Serial bloods should be obtained for zuhair ting on admission, at 6 to 9 hrs and again at 12 to 24 hrs if earlier samples are negative and the clinical index of suspicion is high. Reference: [Myocardial infarction redefined a consensus document of the Joint [place] an Society of Cardiology/Chinese College of Cardiology Committee for the redefinition of myocardial infarction. Journal of the [employer] College of Cardi ology 2000; 36: 959-969] Specimen Anatomical Collection Method Collection Time Receive d Time (Source) Location / / Volume Laterality Blood specimen 08/19/2012 6:15 PM 013 6:31 (specimen) EDT PM EDT Resulting Agency Comment Spec In Lab Samuel Rajan MD CHEMISTRY ORDERABLES Performing Organization Address City/State/ZIP Code Phon e Number [place] [phone] AMINA MCDONALDMARIOMARYAN Blood culture (08/19/2012 6:15 PM EDT) [facility] Method Time Signature Blood Culture [facility] ? Patient Name: SOLEDAD RAMOS ?Ordered By : SAMUEL RAJAN ? MR#: [id number] ?LOC: ??ICCU ? /Sex: ??1955 (57 years), ? Male ? PROCEDURE: Blood Culture ?SOURCE: Blood ? COLLECTED: 08/19/2012 18:15 ? BODY SITE: Right Antecubital ? STARTED: 08/19/2012 18:46 ? FINAL REPORT ? Final Report ? Verified:08/25/2012 15:10 ? No growth at 5 days. ? PRELIMINARY REPORT ? Preliminary Report ? Verified:2012 23:10 ? No growth at 4 days. ? Specimen Anatomical Location Collection Method Collection Time Received Time (Source) / Laterality / Volume Blood specimen ANTECUBITAL REGION 08/19/2012 6:15 08/10 6:46 (specimen) STRUCTURE / Unknown PM EDT PM EDT Resulting Agency Comment Spec In Lab Samuel Rajan MD MICROBIOLOGY - BLOOD ORDERAB LES Performing Organization Address City/[facility]/[place] [address] [facility] (ABNORMAL) Prothrombin Time (08/19/2012 6:15 PM EDT) P athologist Signature PT 16.4 (H) 12.0 - 15.0 [facility] MILLENNIUM Comment: [facility] Transfusion Committee Guidelines: I NR less than 2.0, PTT less than OR equal to 43.5 seconds, or Fibrinogen gre ater than or equal to 100 mg/dl indicate adequate procoagulant activity for hemostasis in patients without underlying bleeding disorders. INR 1.3 (H) 0.9 - 1.1 [facility] Specimen Anatomical Collection Method Collection Time Receive d Time (Source) Location / / Volume Laterality Blood specimen 08/19/2012 6:15 PM 013 6:31 (specimen) EDT PM EDT Resulting Agency Comment Spec In Lab Samuel Rajan MD HEMATOLOGY ORDERABLES Performing Organization Address City/[facility]/[place] [address] CERNER MILLENNIUM (ABNORMAL) Hepatic Function Panel (08/19/2012 6:15 PM EDT) athologist Signature Total Protein 8.0 6.4 - 8.3 CERNER gm/dL MILLENNIUM Albumin 3.6 3.2 - 5.2 CERNER gm/dL MILLENNIUM AST 106 (H) 0 - 39 CERNER unit/L MILLENNIUM ALT 64 (H) 0 - 55 CERNER unit/L MILLENNIUM Alk Phos 159 (H) 40 - 120 CERNER unit/L MILLENNIUM Total 0.6 0.2 - 1.3 CERNER Bilirubin mg/dL MILLENNIUM Bili, Direct 0.4 (H) 0.0 - 0.3 CERNER mg/dL MILLENNIUM Specimen Anatomical Collection Method Collection Time Receive d Time (Source) Location / / Volume Laterality Blood specimen 08/19/2012 6:15 PM 013 6:31 (specimen) EDT PM EDT Resulting Agency Comment Spec In Lab Samuel Rajan MD CHEMISTRY ORDERABLES Performing Organization Address City/State/ZIP Code Phon e Number [address] CERNER MILLENNIUM Glucose, random (08/19/2012 6:15 PM EDT) athologist [facility] Glucose Lvl 95 60 - 199 CERNER mg/dL MILLENNIUM Comment: Diabetes: >=200 mg/dL plus symp toms Specimen Anatomical Collection Method Collection Time Receive d Time (Source) Location / / Volume Laterality Blood specimen 08/19/2012 6:15 PM 013 6:31 (specimen) EDT PM EDT Resulting Agency Comment Spec In Lab Samuel Rajan MD CHEMISTRY ORDERABLES Performing Organization Address City/State/ZIP Code Phon e Number [address] CERNER MILLENNIUM Creatinine (08/19/2012 6:15 PM EDT) athologist Signature Creatinine 1.18 0.80 - 1.50 CERNER mg/dL MILLENNIUM Comment: Please note that the pediatric reference intervals supplied above were not validated at [facility]. Results from pediatri c patients should be interpreted in conjunction to the patient's age, height and muscle mass. Estimated GFR >60 >=60 AMINA Esquivel Comment: The National Kidney Disease Education Pr ogram (NKDEP) has recommended all laboratories report estimated GFR (eGFR) along with plasma creatinine measurements to assist you with recognit ion of early kidney disease. Caveats: ??Plasma creatinine should be a t steady-state (unchanged within the past week). For patient s multiply eGFR by 1.2. The MDRD equation was developed using patients be tween the ages of 18 and 70 years. ?? The MDRD equation has not been validated for patients < 18 years of age and should not be used to assess renal function in the pediatric population. ??The MDRD eGFR equation will also overestimate the true GFR of patients above the age of 70. ??This overestimation is variable bu t increases with age. At present, NKDEP does NOT recommend usi ng the MDRD equation for drug dosing purposes and pharmacists should continue to use their current dosing methods. In addition, numerical eGFR values great er than 60 ml/min/1.73 square meters should be treated as > 60, and not an ex act number due to greater inaccuracies at these higher values. Per NKDEP, they classify normal renal function as any GFR >60ml/min/1.73 square meters; chronic kidney disease wh en GFR <60, and renal failure when GFR <15. ??This calculation may not be valid for patients with atypical muscle mass (very lean or obese), acute renal failur e, and in patients with diabetic kidney disease. References: http://nkdep.nih.gov/resources/NKDEP_Sug gestn4Labs_0606_508.pdf http://www.kidney.org/professionals/kls/ pdf/faq_gfr.pdf Yaquelin K, Herber NA, Ranjit AK, Blaine TS, Valeria AD, Basil AISHWARYA. Relative performance of the MDRD and CKD-EPI equa tions for estimating glomerular filtration rate among patients with vari ed clinical presentations. Clin J Am Soc Nephrol;6:1963-72. Specimen Anatomical Collection Method Collection Time Receive d Time (Source) Location / / Volume Laterality Blood specimen 08/19/2012 6:15 PM 013 6:31 (specimen) EDT PM EDT Resulting Agency Comment Spec In Lab Samuel Rajan MD CHEMISTRY ORDERABLES Performing Organization Address City/[facility]/[place] [address] CERNER MILLENNIUM BUN (08/19/2012 6:15 PM EDT) P athologist Signature BUN 12 10 - 20 CERNER mg/dL MILLENNIUM Specimen Anatomical Collection Method Collection Time Receive d Time (Source) Location / / Volume Laterality Blood specimen 08/19/2012 6:15 PM 013 6:31 (specimen) EDT PM EDT Resulting Agency Comment Spec In Lab Sameul Rajan MD CHEMISTRY ORDERABLES Performing Organization Address [facility] [place] [address] CERNER MILLENNIUM (ABNORMAL) Electrolytes panel (08/19/2012 6:15 PM EDT) P athologist Signature Sodium 128 (L) 135 - 145 CERNER mmol/L MILLENNIUM Potassium 4.6 3.5 - 5.0 CERNER mmol/L MILLENNIUM Comment: Please note: ??Patients with WBC >100,00 0 may have falsely elevated Potassium levels. ??For accurate Potassium quantif ication in these patients send serum separator tube (gold top) for subsequent determinations. ??Contact the Clinical Chemistry Laboratory if there are any qu estions. Chloride 93 (L) 98 - 107 mmol/L CERNER MILLENN IUM CO2 24 22 - 31 mmol/L CERNER MILLENNI UM Anion Gap 11 5 - 15 mmol/L CERNER MILLENNIU M Specimen Anatomical Collection Method Collection Time Receive d Time (Source) Location / / Volume Laterality Blood specimen 08/19/2012 6:15 PM 013 6:31 (specimen) EDT PM EDT Resulting Agency Comment Spec In Lab Samuel Rajan MD CHEMISTRY ORDERABLES Performing Organization Address City/[facility]/[place] [address] CERNER MILLENNIUM (ABNORMAL) CBC (with Diff) (08/19/2012 6:15 PM EDT) P athologist Signature WBC 19.3 (H) 4.0 - 10.0 CERNER x10(3)/mcL MILLENNIUM RBC 3.81 (L) 4.63 - CERNER 6.08 MILLENNIUM x10(6)/mcL Hemoglobin 13.3 (L) 13.7 - CERNER 17.5 gm/dL MILLENNIUM Hematocrit 38.0 (L) 40.0 - CERNER 51.0 % MILLENNIUM MCV 99.7 (H) 79.0 - CERNER 92.0 fL MILLENNIUM MCH 34.9 (H) 25.6 - CERNER 32.2 pg MILLENNIUM MCHC 35.0 32.0 - CERNER 36.5 gm/dL MILLENNIUM Platelets 474 (H) 145 - 370 CERNER x10(3)/mcL MILLENNIUM RDWSD 49.6 (H) 35.0 - CERNER 46.0 fL MILLENNIUM RDWCV 13.9 10.9 - CERNER 14.4 % MILLENNIUM MPV 9.6 9.0 - 12.0 CERNER fL MILLENNIUM Specimen Anatomical Collection Method Collection Time Receive d Time (Source) Location / / Volume Laterality Blood specimen 08/19/2012 6:15 PM 013 6:31 (specimen) EDT PM EDT Resulting Agency Comment Spec In Lab Samuel Rajan MD HEMATOLOGY ORDERABLES Performing Organization Address City/State/[place] [address] CERNER MILLENNIUM EKG 12 Lead (08/19/2012 6:07 PM EDT) Component Value Ref Range Test Analysis Performed Pathologis t Method Time At Signature Ventricular rate 82 BPM MUSE SYSTEM Atrial Rate 82 BPM MUSE SYSTEM P-R Interval 148 ms MUSE SYSTEM QRS Duration 76 ms MUSE SYSTEM Q-T Interval 372 ms MUSE SYSTEM QTC Calculated 434 ms MUSE SYSTEM (Bezet) Calculated P [place] 60 degrees MUSE SYSTEM Calculated R [place] 52 degrees MUSE SYSTEM Calculated T [place] 57 degrees MUSE SYSTEM INTERPRETATION Normal sinus rhythm MUSE SYSTEM Normal ECG When compared with ECG of 11-JUL-2009 14:23, No significant change was found Confirmed by MD ED, LEVI ([id number]) on 08/20/2012 3:40:13 PM Specimen Anatomical Collection Method Collection Time Receive d Time (Source) Location / / Volume Laterality 08/19/2012 6:07 PM 3 3:40 EDT PM EDT Adrianna Wilson MD ECG ORDERABLES Performing Organization Address City/State/ZIP Code Phon e Number MUSE SYSTEM documented in this encounter Visit Diagnoses Diagnosis Community acquired pneumonia - Primary Pneumonia, organism unspecified Pain Generalized pain Pneumonia Pneumonia, organism unspecified Confusion Unspecified psychosis Imbalance Abnormality of gait documented in this encounter Administered Medications Inactive Administered Medications - up to 3 most recent administrations Medication Order MAR Action Action Date Dose Rate Site acetaminophen (TYLENOL) tablet 975 Given 08/19/2012 6:25 PM EDT 975 mg mg 975 mg, Oral, ONCE, 1 dose, On Fri08/19/12 at 1845, Maximum dose of acetaminophen is 4000 mg from all sources in 24 hours., STAT amlodipine (NORVASC) tablet 5 mg Given 08/21/2012 8:50 AM EDT 5 mg 5 mg, Oral, DAILY, First dose on Fri08/20/12 at 0900, Until Discontinued, Routine Given 08/20/2012 8:37 AM EDT 5 mg atenolol (TENORMIN) tablet 50 mg Given 08/21/2012 8:50 AM EDT 50 mg 50 mg, Oral, 2 TIMES DAILY, First dose on Fri08/19/12 at 2130, Until Discontinued, Routine Given 08/20/2012 10:11 PM EDT 50 mg Given 08/20/2012 8:37 AM EDT 50 mg azithromycin (ZITHROMAX) injection 500 m g Given 08/19/2012 7:30 PM EDT 500 mg 500 mg, Intravenous, ONCE, 1 dose, On Fri08/19/12 at 1915, STAT azithromycin (ZITHROMAX) tablet 250 mg Given 08/21/2012 8:51 AM EDT 250 mg 250 mg, Oral, DAILY, 4 doses, First dose on Fri08/20/12 at 0900, Last dose on Fri08/23/12 at 0900, Routine Given 08/20/2012 8:37 AM EDT 250 mg buPROPion (WELLBUTRIN XL) XL tablet 300 mg Given 08/21/2012 8:51 AM EDT 300 mg 300 mg, Oral, EVERY MORNING, First dose on Fri08/20/12 at 0700, Until Discontinued, Routine Given 08/20/2012 7:00 AM EDT 300 mg cefTRIaxone (ROCEPHIN) 1g in dextrose 5% Given 08/21/2012 8: 51 AM EDT 1 g 100 mL/hr 50mL 1 g, Intravenous, EVERY 24 HOURS SCHEDULED (Daily), First dose on Fri08/20/12 at 0900, Until Discontinued, Administer over 30 Minutes, Indication for (Active or Suspected): for Pneumonia (Community) Given 08/20/2012 8:07 AM EDT 1 g 100 mL/hr cefTRIaxone (ROCEPHIN) injection 2 g Given 08/19/2012 6:55 PM EDT 2 g 2 g, Intravenous, ONCE, 1 dose, On Fri08/19/12 at 1915, STAT diaZEPam (VALIUM) tablet 5 mg Given 08/21/2012 8:50 AM EDT 5 mg 5 mg, Oral, 3 TIMES DAILY PRN, Starting on Fri08/19/12 at 2111, Until Fri08/21/12 at 1406, Anxiety, Routine Given 08/20/2012 9:43 AM EDT 5 mg Given 08/19/2012 10:38 PM EDT 5 mg folic acid (FOLVITE) tablet 1,000 mcg Given 08/21/2012 8:51 AM EDT 1,000 mcg 1,000 mcg (1 mg), Oral, DAILY, First dose on Fri08/20/12 at 1530, Until Discontinued, Routine Given 08/20/2012 4:50 PM EDT 1,000 mcg lactulose (CHRONULAC) 20 gram/30 mL oral Given 08/20/2012 2:01 P M EDT 20 g solution 20 g 20 g, Oral, 2 TIMES DAILY, First dose on Fri08/20/12 at 1330, Until Discontinued, Titrate to 2-3 bowel movements daily., Routine methadone (DOLOPHINE) tablet 40 mg Given 08/21/2012 8:51 AM EDT 40 mg 40 mg, Oral, 4 TIMES DAILY, First dose on Fri08/19/12 at 2130, Until Discontinued, Routine Given 08/21/2012 3:24 AM EDT 40 mg Given 08/20/2012 8:00 PM EDT 40 mg metroNIDAZOLE (FLAGYL) tablet 500 mg Given 08/21/2012 8:51 AM EDT 500 mg 500 mg, Oral, 3 TIMES DAILY, First dose on Fri08/20/12 at 1500, Until Discontinued, Routine Given 08/20/2012 10:11 PM EDT 500 mg Given 08/20/2012 4:49 PM EDT 500 mg multivitamin Gipa-Mt-WJ-Min (THERAPEUTIC-M) Given 08/10 8:51 AM EDT 1 tablet 27-0.4 mg tablet 1 tablet 1 tablet, Oral, DAILY, First dose on Fri08/20/12 at 1330, Until Discontinued Given 08/20/2012 2:00 PM EDT 1 tablet sodium chloride 0.9 % flush 5 mL Given 08/21/2012 8:51 AM EDT 5 mLs 5 mL, Intravenous, EVERY 12 HOURS, First dose on Fri08/19/12 at 2130, Until Discontinued Given 08/20/2012 9:30 PM EDT 5 mLs Given 08/20/2012 8:37 AM EDT 5 mLs sodium chloride 0.9% 1,000 mL IV bolus Given 08/19/2012 6:22 PM EDT Intravenous, ONCE, 1 dose, On Fri08/19/12 at 1915 sodium chloride 0.9% infusion New Bag 08/19/2012 10:28 PM EDT 100 mL/hr 100 mL/hr 100 mL/hr, Intravenous, CONTINUOUS, Starting on Fri08/19/12 at 1915, Until Fri08/21/12 at 1406 New Bag 08/19/2012 6:50 PM EDT 100 mL/hr 100 mL/hr thiamine tablet 50 mg Given 08/21/2012 8:51 AM EDT 50 mg 50 mg, Oral, DAILY, First dose on Fri08/20/12 at 1330, Until Discontinued, Routine Given 08/20/2012 2:00 PM EDT 50 mg documented in this encounter Active and Recently Administered Medications Times are shown in EDT. Scheduled Medication Order 08/19/2012 08/20/2012 08/21/2012 acetaminophen (TYLENOL) tablet 975 mg (COMPLETED) 1825 (Given - Provider: Yrn Menendez RN) 975 mg, Oral, ONCE, 1 dose, Fri08/19/12 at 1845, Maximum dose of acetaminophen is 4000 mg from all sources in 24 hours., STAT amlodipine (NORVASC) tablet 5 mg (CANCELED) 0837 (Given - Provider: Julia Lopez RN) 0850 (Given - Provider: Wiliam Du , VINCENT) 5 mg, Oral, DAILY, First dose on 08/10 at 0900, Until Discontinued, Routine atenolol (TENORMIN) tablet 50 mg (CANCELED) 2129 (Give n - Provider: Maribeth Gomez, VINCENT) 0837 (Given - Provider: Julia Lopez RN )2210 (Given - Provider: Milena Palmer RN) 0850 (Given - Provider: Wiliam Du , VINCENT) 50 mg, Oral, 2 TIMES DAILY, First dose o n Fri08/19/12 at 2130, Until Discontinued, Routine azithromycin (ZITHROMAX) injection 500 mg (COMPLETED) 1929 (Given - Provider: Bryan Lechuga RN) 500 mg, Intravenous, ONCE, 1 dose, Fri08/19/12 at 1915, STAT azithromycin (ZITHROMAX) tablet 250 mg (CANCELED) 0837 (Given - Provider: Julia Lopez RN) 0851 (Given - Provider: Wiliam Du , VINCENT) 250 mg, Oral, DAILY, 4 doses, First dose on Christina 08/20/12 at 0900, Last dose on Fri08/23/12 at 0900, Routine buPROPion (WELLBUTRIN XL) XL tablet 300 mg (CANCELED) 0700 (Given - Provider: Maribeth Gomez RN) 0851 (Given - Provider: Wiliam Du , VINCENT) 300 mg, Oral, EVERY MORNING, First dose on Fri08/20/12 at 0700, Until Discontinued, Routine cefTRIaxone (ROCEPHIN) 1g in dextrose 5% 50mL (CANCELED) 0807 (Given - Provider: Julia Lopez RN) 0851 (Given - Provider: Wiliam Du RN) 1 g, Intravenous, EVERY 24 HOURS SCHED ED (Daily), First dose on Fri08/20/12 at 0900, Until Discontinued, for 30 Minutes, Indication (Active or Suspected): for Pneumonia (Community) cefTRIaxone (ROCEPHIN) injection 2 g (COMPLETED) 1854 (Given - Provider: Yrn Menendez RN)1925 (IV Stop - Provider: Bryan Lechuga RN) 2 g, Intravenous, ONCE, 1 dose, Fri08/19/12 at 1915, STAT folic acid (FOLVITE) tablet 1,000 mcg (CANCELED) 165 (Given - Provider: Julia Lopez RN) 0851 (Given - Provider: Wiliam Du , VINCENT) 1 mg = 1,000 mcg, Oral, DAILY, First dos e on Fri08/20/12 at 1530, Until Discontinued, Routine lactulose (CHRONULAC) 20 gram/30 mL oral solution 20 g (CANC ELED) 1401 (Given - Provider: Julia Lopez RN)2100 (Not Given - Provider: Milena Palmer RN - Reason: Patient/family refused - Comment: pt states having loose BM) 0900 (Not Given - Provider: Wiliam Du RN - Reason: Patient/family refused) 20 g, Oral, 2 TIMES DAILY, First dose on Fri08/20/12 at 1330, Until Discontinued, Titrate to 2-3 bowel movements daily., Routine methadone (DOLOPHINE) tablet 40 mg (CANCELED) 2129 (Gi mita - Provider: Maribeth Gomez RN) 0804 (Given - Provider: Julia Lopez RN )1359 (Given - Provider: Julia Lopez RN)1700 (Not Given - Provider: Julia Lopez RN - Reason: See comment - Comment: med times changed per pt routine)1999 (Given - Provider: Jazmin Arriola) 0324 (Given - Provider: Milena Palmer RN)0851 (Given - Provider: Wiliam Du, VINCENT) 40 mg, Oral, 4 TIMES DAILY, First dose o n Fri08/19/12 at 2130, Until Discontinued, Routine metroNIDAZOLE (FLAGYL) tablet 500 mg (CANCELED) 164 (Given - Provider: Julia Lopez RN)221 (Given - Provider: Milena Palmer RN) 0851 (Given - Provider: Wiliam Du, VINCENT) 500 mg, Oral, 3 TIMES DAILY, First dose on Fri08/20/12 at 1500, Until Discontinued, Routine multivitamin Wckw-Kf-GD-Min (THERAPEUTIC -M) 27-0.4 mg tablet 1 tablet (CANCELED) 1400 (Given - Provider: Julia Lopez, VINCENT ) 0851 (Given - Provider: Wiliam Du, VINCENT) 1 tablet, Oral, DAILY, First dose on Fri08/20/12 at 1330, Until Discontinued, Routine sodium chloride 0.9 % flush 5 mL (CANCELED) 2130 (Give n - Provider: Maribeth Gomez RN) 0837 (Given - Provider: Julia Lopez RN )2130 (Given - Provider: Milena Palmer RN) 0851 (Given - Provider: Wiliam Du , VINCENT) 5 mL, Intravenous, EVERY 12 HOURS, First dose on Fri08/19/12 at 2130, Until Discontinued, Routine sodium chloride 0.9% 1,000 mL IV bolus (COMPLETED) 182 2 (Given - Provider: Yrn Menendez RN)1850 (IV Stop - Provider: Yrn Menendez RN) Intravenous, ONCE, 1 dose, Fri08/19/12 at 1915 thiamine tablet 50 mg (CANCELED) 1400 (Given - P rovider: Julia Lopez RN) 0851 (Given - Provider: Wiliam Du, VINCENT) 50 mg, Oral, DAILY, First dose on 03/24 at 1330, Until Discontinued, Routine Continuous Medication Order 08/19/2012 08/20/2012 08/21/2012 sodium chloride 0.9% infusion (CANCELED) 1850 (New Bag - Provider: Yrn Menendez RN)2228 (New Bag - Provider: Maribeth oGmez RN) 100 mL/hr, at 100 mL/hr, Intravenous, CO NTINUOUS, Starting Fri08/19/12 at 1915, Until Fri08/21/12 at 1406 PRN Medication Order 08/19/2012 08/20/2012 08/21/2012 diaZEPam (VALIUM) tablet 5 mg (CANCELED) 2238 (Given - Provider: Maribeth Gomez, VINCENT) 0943 (Given - Provider: Julia Lopez RN) 0850 (Given - Provider: Wiliam Du RN) 5 mg, Oral, 3 TIMES DAILY PRN, Starting Fri08/19/12 at 2111, Until 08/21/12 at 1406, Anxiety, Routine documented in this encounter Care Teams Yacht Hand Relationship Specialty Start Date End Date Eli Roca MD PCP - General 11/21/11 04/20/13 [facility] GENER[place] [address] documented as of this encounter
--- OUTSIDE RECORDS SUMMARY | 2021-11-30 08:27 | XMS_ITS | Encounter Summary ---
:1955 Author Organization [facility] [place] [address] Care Team Providers Name Role Phone Eli Bergman MD Primary Care Provider Reason for Visit Reason Comments Depression Encounter Details Date Type Department Care Team Description 10/06/2012 Office Visit Psychiatry and Sen Gomes MD Major depressive Behavioral Health at [facility] johnny chong [facility] [address] [place], moderate [facility] PSYCHIATRY DE PT (Primary Dx) [address] [phone] (Work) [phone] Social History Tobacco Use Types Packs/Day Years [...] Sign Reading Time Taken Comments Blood Pressure 146/88 10/06/2012 2:15 PM EDT Pulse 64 10/06/2012 2:15 PM EDT Temperature - - Respiratory Rate - - Oxygen Saturation - - Inhaled Oxygen Concentration - - Weight 91.6 kg (202 lb) 10/06/2012 2:15 PM EDT Height 175.3 cm (5' 9) 10/06/2012 2:15 PM EDT Body Mass Index 29.83 10/06/2012 2:15 PM EDT documented in this encounter Progress Notes Tyson Saenz MD - 10/13/2012 2:21 PM EDT I saw and evaluated the patient with the resident. I reviewed the patient's history during the visit and [ x] I agree with the details as written by the resident. [ ] I agree with the above details with the following exceptions, corrections, &/or additional findings: My exam [x ] confirms the resident's findings. [ ] confirms the resident's findings with the following exceptions, corrections, &/or additionalfindings: The assessment and plan were formulated in discussion with me and [x ] I agree with them as documented. [ ] I agree with them with the following exceptions, corrections, &/or additional findings: Major issues addressed/discussed: Patient is doing well and seems to be quite responsible. Agree with continuing diazepam at this time Sen Gomes MD - 10/06/2012 2:07 PM EDT ESTABLISHED ADULT PATIENT OFFICE VISIT NOTE Time Spent: 30 minutes Attendee(s): Patient This patient was seen with Dr. Tyson Saenz. See his note for confirmatory and/or revisionary documentation. HISTORY Chief Complaint: Mahin Ramos is a 56 y.o. Male presents today with anxiety and depression HPI: () Mr. Ramos is a 56 yo male w/ h/o depression, anxiety, and ADHD. The patient continues to report thathis current medication regimen has been very helpful in controlling his symptoms of depression and anxiety, noting that at this point he is doing quite well. He does note a significant amount of pain, which he notes frequently awakens him throughout the night, and this is being managed using methadoneby [facility]. He continues to deny recent etoh use of other substance use, acknowledging that this would be dangerous with his current medication regimen. He notes good appetite, improved concentration and energy, and states that he has been enjoying spending time with his grandchildren. He also reports that while his anxiety is still present, they have been under control with the use of diazepam. Risks ofthis medication in combination with methadone were again discussed, and the patient acknowledged this risks and stated that he would not drive. Current psychotropic medications: Bupropion XL 300 mg PO Daily Methylphenidate 20 mg PO QID Diazepam 5 mg PO TID PRN anxiety Current Medications: Current Outpatient Prescriptions on File Prior to Visit Medication Sig Dispense Refill ??? methadone (DOLOPHINE) 10 mg tablet Take 4 tablets by mouth 4 times daily. 224 tablet 0 ??? methylphenidate (RITALIN) 20 mg tablet Take 1 tablet by mouth 4 times daily. Signed in the absence Dr Bergman Indications: Attention-Deficit Hyperactivity Disorder 112 tablet 0 ??? diaZEPam (VALIUM) 5 mg tablet take 1 tablet by mouth three times a day if needed for anxiety 90 tablet 2 ??? multivitamin (THERAGRAN) tablet Take 1 tablet by mouth daily. ??? moxifloxacin (AVELOX) 400 mg tablet Take 1 tablet by mouth daily. 5 tablet 0 ??? atenolol (TENORMIN) 50 mg tablet [...] (05/13/09) Constitutional: reports mild fatigue Musculoskeletal: Endorses stable back pain; shoulder w/ increased pain Psychiatric: See HPI above Allergic/Immunological: See reviewed allergies PFSH: () Past Medical/Psychiatric History: - Past diagnoses: MDD, ADHD, Chronic Pain, EtOH Dependence, Anxiety D/O NOS, h/o Opioid Dependence. 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 Currently on disability, worked in [employer]. Helping son w/ mowing some lawns. EXAM [10/18/13 bullets (incl VS)] Constitutional System ?? Vital Signs: Blood pressure 146/88, pulse 64, height 175.3 cm (5' 9), weight 91.627 kg (202 lb). Musculoskeletal System ?? Muscle Strength/Tone (note atrophy, abnormal movements): No abnormal movements noted; R shoulder movement decreased ?? Gait and Station: Dysarthric gait Psychiatric System ?? General Appearance/Behavior: Casually dressed ?? Speech: Slow with normal volume/tone ?? Thought Process: Linear and logical ?? Associations: Intact ?? Abnormal Thoughts and Perceptions / Thought Content: Homicidality / Violent Thoughts: Denies Suicidality: Denies Hallucinations: Denies Delusions: Denies Obsessions: Denies ?? Judgment and Insight: good ?? Mood & Affect: Euthymic w/ mood congrent affect ?? Orientation: AAOx4 ?? Attention/Concentration: Appropriate ?? Memory: Remote and recent memory intact ?? Language: fluent [place] ?? Fund of Knowledge: Grossly intact MEDICAL DECISION MAKING ASSESSMENT: Mahin Ramos is a 57 y.o. Male with depression, anxiety, and ADHD who reports stable symptoms well controlled on his current medication regimen. The patient does has a history of substance abuse and is some potentially abusive medications, but reports sobriety and good control of symptoms, and abuse of prescribed medications continues to appear unlikely. Will continue the patient's current medication regimen at this time. Also encourage continued utilization of relaxation techniques. PLAN: - Continue Bupropion XL 300 mg PO Daily - Continue Diazepam 5 mg PO TID PRN anxiety - Methylphenidate is now being managed by [facility] (per patient) - Continue relaxation techniques - RTC in 2-3 months documented in this encounter Plan of Treatment Upcoming Encounters Date Type Specialty Care Team Description 12/11/2021 Appointment Radiology 12/11/2021 Office Visit Orthopaedics Marion Tavera APRN [facility] ORTHOPAEDIC SURG [place], [place] [address] (Wo rk) 01/15/2022 Appointment Radiology Stiven Cervantes MD [facility] Pulmonary Medici [place], [place] [address] (Wo rk) Scheduled Procedures Name Priority Associated Diagnoses Date/Time DEBRIDEMENT SKIN, SUBCU, MUSCLE, R great toe amp utation, wound LOWER EXTREMITY (WRVU 2.7) closure MODIFIER WOUND VAC R great toe amputation, wound closure documented as of this encounter Visit Diagnoses Diagnosis Major depressive disorder, recurrent epi sode, moderate - Primary documented in this encounter Care Teams Closet Builder Relationship Specialty Start Date End Date Eli Bergman MD PCP - General 11/21/11 04/20/13 [facility] [place] [address] documented as of this encounter
--- OUTSIDE RECORDS SUMMARY | 2021-11-30 08:27 | XMS_ITS | Encounter Summary ---
:1955 Author Organization [facility] [place] [address] Care Team Providers Name Role Phone Eli Bergman MD Primary Care Provider Encounter Details Date Type Department Care Team Description 12/15/2012 Notes Only Internal Medicine at [facility] Vidhya Puckett, [place] [address] Social History Tobacco Use Types Packs/Day [...] encounter Progress Notes Vidhya Puckett, RN - 12/15/2012 8:09 AM EDT Methadone refill information: Methadone 10 mg tabs #224 q14 days Refill Due 12/23 every 2 weeks Written on 12/15 Mail 12/17 Refill Due next 01/06 Generate on 12/28 RA Alonzo Last visit 08/25/12 Next appt 11/18/12 UDS 08/25/12 Repeat 12/18/12 Contract 04/04/09 Resign at visit 12/18/12 NOS visit 11/18/12 Madalyn /Enrique documented in this encounter Plan of Treatment Upcoming Encounters Date Type Specialty Care Team Description 12/11/2021 Appointment Radiology 12/11/2021 Office Visit Orthopaedics Marion Tavera APRN [facility] DR ORTHOPAEDIC SURG [place], [place] [address] (Wo rk) 01/15/2022 Appointment Radiology Stiven Cervantes MD [facility] Pulmonary Medici [place], [place] [address] (Wo rk) Scheduled Procedures Name Priority Associated Diagnoses Date/Time DEBRIDEMENT SKIN, SUBCU, MUSCLE, R great toe amp utation, wound LOWER EXTREMITY (WRVU 2.7) closure MODIFIER WOUND VAC R great toe amputation, wound closure documented as of this encounter Visit Diagnoses Not on filedocumented in this encounter Care Teams Field Supervisor Relationship Specialty Start Date End Date Eli Bergman MD PCP - General 11/21/11 04/20/13 [facility] GENER[place] [address] documented as of this encounter
--- OUTSIDE RECORDS SUMMARY | 2021-11-30 08:27 | XMS_ITS | Encounter Summary ---
:1955 Author Organization [facility] [place] [address] Care Team Providers Name Role Phone Eli Bergman MD Primary Care Provider Reason for Visit Reason Onset Date Comments Medication Refill 09/22/2012 Encounter Details Date Type Department Care Team Description 09/22/2012 Refill Internal Medicine at [facility] Vidhya Puckett, [place] [address] Social History Tobacco Use Types Packs/Day [...] APRN [facility] ORTHOPAEDIC SURG [place], [place] [address] (Wo rk) 01/15/2022 Appointment Radiology Stiven Cervantes MD [facility] Pulmonary Medici [place], [place] [address] (Wo rk) Scheduled Procedures Name Priority Associated Diagnoses Date/Time DEBRIDEMENT SKIN, SUBCU, MUSCLE, R great toe amp utation, wound LOWER EXTREMITY (WRVU 2.7) closure MODIFIER WOUND VAC R great toe amputation, wound closure documented as of this encounter Visit Diagnoses Not on filedocumented in this encounter Care Teams Vest Backer Relationship Specialty Start Date End Date Eli Bergman MD PCP - General 11/21/11 04/20/13 [facility] GENERAL [place] [address] documented as of this encounter
--- OUTSIDE RECORDS SUMMARY | 2021-11-30 08:27 | XMS_ITS | Encounter Summary ---
:1955 Author Organization [facility] [place] [address] Care Team Providers Name Role Phone Eli Bergman MD Primary Care Provider Reason for Referral Consultation (Routine) - Complete - Patient Will Schedule External Appt Specialty Diagnoses / Procedures Referred By Contact Refer red To Contact Podiatry Diagnoses Callus of foot Eli Bergman MD [facility] Jenni [place] [address] Referral ID Status Reason Start Expiration Visits Visits Date Date Requested Authorized [id number] Complete - Consult, 08/25/2012 02/21/2013 1 1 Patient Will Test & Schedule Treat External Appt Reason for Visit Reason Comments Post Hospital Discharge Encounter Details Date Type Department Care Team Description 08/25/2012 Follow-Up Internal Medicine at Christina Bergman MD High risk medication use (Primary Dx); [facility] Callus of foot; [facility] DR Lidia Odell [place] [address] MEDICINE [phone] [place], [place] [address] (Wo rk) Social History Tobacco [...] Sign Reading Time Taken Comments Blood Pressure 130/67 08/25/2012 2:17 PM EDT Pulse 59 08/25/2012 2:17 PM EDT Temperature 36.6 ??C (97.9 ??F) 08/25/2012 2:17 PM EDT Respiratory Rate 18 08/25/2012 2:17 PM EDT Oxygen Saturation 95% 08/25/2012 2:17 PM EDT Inhaled Oxygen Concentration - - Weight 92.5 kg (204 lb) 08/25/2012 2:17 PM EDT with [place] ts Height - - Body Mass Index 30.13 08/19/2012 9:45 PM EDT documented in this encounter Progress Notes Eli Bergman - 08/25/2012 3:19 PM EDT History of Present Illness Mr. Ramos is a 57 yo male with a PMH notable for chronic back pain (h/o avascular necrosis s/p bilateral hip replacement) on methadone, chronic hep C genotype 2b with viral relapse post interferon and ribavirin, depression, anxiety, and ADHD who presents for follow-up/post-hospital visit. The patient was admitted from 08/19-08/21 after presenting to the ED with confusion/imbalance and found to have RML/RLL infiltrate for which he was treated for a CAP with ceftriaxone, azithromycin, and flagyl (for aspiration). During his hospitalization an abdominal ultrasound was performed to evaluate for ascites/portal vein thrombosis which was negative. He was discharged on moxifloxacin 400 mg x 5 days with recommendations for a repeat CXR in six weeks. The patient reports his productive cough has abated/resolved and his breathing has improved as well. He denies fevers, chills, chest pain, SOB, nausea, vomiting, or abdominal pain. He reports since the summer he has noted numbness in his toes and when he initially starts walking in the morning it feels as though he is walking on bubbles. He reports this sensation improved with more padding in his shoes. He denies incontinence or paresthesias. His chronic back pain is unchanged. He reports abstaining from alcohol x 1-2 years. He is cutting back on smoking--currently 1 pack of cigarettes will last him 3 weeks. Review of Systems Positive ROS are in bold Constitutional: fevers, chills, night sweats, dizziness, appetite loss, fatigue, weight loss/gain Eyes: changes in vision, double vision, visual loss, eye pain. ENT/mouth: nasal/sinus congestion, rhinorrhea, sore throat, hoarseness CV: chest pain, palpitations, orthopnea, PND, light-headedness Resp: SOB, cough, sputum, CUNHA GI: abd pain, nausea, vomiting, diarrhea, constipation, dysphagia, odynophagia, indigestion : dysuria, urgency, frequency, difficulty initiating stream, nocturia Heme: hematuria, melena, BRBPR Derm: rashes, bruising, pruritis, acne Musculoskeletal: myalgias, arthralgias, arthritis, back pain, left shoulder/hip pain Neuro: headache, numbness, tingling, changes in sensation, insomnia Psych: sadness, anxiety, SI, HI Physical Exam Vitals: BP 130/67 Pulse 59 Resp 18 Temp 36.6 C ( 97.9 F) SpO2 95% Weight 92.534 kg (204 lb) General: Pleasant, NAD HEENT: MMM. Cardio: Normal s1/s2. Normal rate. Regular rhythm. No murmurs/rubs/gallops. Resp: CTAB. No wheezes/rales/rhonchi. Abd: (+)BS. Soft. Non-tender. Non-distended. Ext: No BLE edema. Bilateral plantar surfaces with multiple calluses. Neuro: AAO x 3. 5/5 strength in BLE. Assessment/Plan Mr. 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 The p atient is currently improving from his CAP and will complete his course of moxifloxacin with follow-up CXR in 6 weeks. The patient's foot discomfort (sensation of walking on bubbles) may be related to his calluses for which I will refer him to podiatry (the patient has seen podiatry for his calluses in the past with improvement). However, will need to rule out other organic causes including electrolyte abnormalities (Vit B12 and potassium normal), diabetes (glc levels have been normal), and alcohol use (which he denies using for 1-2 years). His level of back pain appears stable and will continue his current dose of methadone. The patient is being followed by GI and Psych for his hep c and anxiety/depression/ADHD, respectively. # Community acquired pneumonia - complete course of moxifloxacin - f/u CXR in 6 weeks # Foot discomfort - Referral for podiatry - r/o organic causes: check electrolytes (Vit B12 normal), A1c, monitor alcohol use # Chronic pain - Continue methadone - Urine tox 08/20: (+)Benzo/methadone # HCV - Followed by GI # Depression/anxiety/ADHD - Continue bupropion, methylphenidate, and prn diazepam - Followed by psychiatry # Follow-up - RTC in 3 months Chris Monae MD - 08/25/2012 2:50 PM EDT The case was discussed at the time of the visit or immediately after the visit. The assessment and plan were formulated in discussion with me and I agree with them as documented. I have reviewed the history, physical exam, assessment and plan with the resident. Major issues discussed today: on methadone for chronic back pain BZ + methadone positive urine tox. Hep C genotype 2b: relapse after IFN and ribavirin. Last seen on by JOHN. USG repeat. Depression anxiety: follows psych Brief hospitalization: 08/19-, d/t balance issues. PNA Cef, azithro and flagyl for aspiration. D/C on Moxifloxacin. ROS better. Back pain: no change Feels like walking on bubbles. Shoes with padding has helped. Active smoker: Alcohol? BP 130/67 Pulse 59 Temp(Src) 36.6 ??C (97.9 ??F) (Oral) Resp 18 Wt 92.534 kg (204 lb) DxL542% Callus per resident exam. Left side appears being Tugged by patient. No results found for this basename: ha1c Lab Results Component Value Date NA 136 08/21/2012 K 4.3 08/21/2012 CL 101 08/21/2012 CO2 22 08/21/2012 BUN 8* 08/21/2012 CREATININE 0.81 08/21/2012 GLUCOSE 58* 08/21/2012 GLUCFASTING 95 11/08/2010 CALCIUM 9.2 08/21/2012 Plan: PNA: resolving Sensory changes in feet: ok with podiatry referral, r/o organic causes e.g.micronutrient def, Alcohol related toxicity? documented in this encounter Plan of Treatment Upcoming Encounters Date Type Specialty Care Team Description 12/11/2021 Appointment Radiology 12/11/2021 Office Visit Orthopaedics Marion Tavera APRN [facility] ORTHOPAEDIC SURG [place], [place] [address] (Wo rk) 01/15/2022 Appointment Radiology Stiven Cervantes MD [facility] Pulmonary Medici [place], [place] [address] (Wo rk) Scheduled Procedures Name Priority Associated Diagnoses Date/Time DEBRIDEMENT SKIN, SUBCU, MUSCLE, R great toe amp utation, wound LOWER EXTREMITY (WRVU 2.7) closure MODIFIER WOUND VAC R great toe amputation, wound closure Scheduled Referrals Name Type Priority Associated Diagnoses Order S chedule Referral to Outpatient Referral Routine Callus of foot Ordere d: Podiatry 08/25/2012 documented as of this encounter Visit Diagnoses Diagnosis High risk medication use - Primary Encounter for long-term (current) use of other medications Callus of foot Corns and callosities Pneumonia Pneumonia, organism unspecified documented in this encounter Care Teams [employer] Solutions Consultant Relationship Specialty Start Date End Date Eli Bergman MD PCP - General 11/21/11 04/20/13 [facility] GENERAL [place] [address] documented as of this encounter
--- OUTSIDE RECORDS SUMMARY | 2021-11-30 08:27 | XMS_ITS | Encounter Summary ---
:1955 Author Organization [place] [address] Care Team Providers Name Role Phone Eli Bergman MD Primary Care Provider Encounter Details Date Type Department Care Team Description 12/29/2012 Notes Only Internal Medicine at [facility] Vidhya Puckett, [place] [address] Social History Tobacco Use Types Packs/Day [...] encounter Progress Notes Vidhya Puckett, RN - 12/29/2012 7:46 AM EDT Monthly Ritalin refill information: Pt has appt PCP 01/05 PCP to write scripts at visit for due date 01/06 Also will resign Opioid Agreement and obtain urine drug screen Refill Due 01/06 Written on To be given to pt office visit 01/05 Mail on Next refill due 02/03 Generate on 01/25 Ritalin 20mg 4 x day 28 days # 112 Methadone 10 mg tabs #224 q14 days Refill Due 01/06 every 2 weeks Written on Mail Refill Due next 01/20 Generate on 01/11 [place] documented in this encounter Plan of Treatment Upcoming Encounters Date Type Specialty Care Team Description 12/11/2021 Appointment Radiology 12/11/2021 Office Visit Orthopaedics Marion Tavera APRN [facility] DR ORTHOPAEDIC SURG [place], [place] [address] (Wo rk) 01/15/2022 Appointment Radiology Stiven Cervantes MD [facility] Pulmonary Medici [place], [place] [address] (Wo rk) Scheduled Procedures Name Priority Associated Diagnoses Date/Time DEBRIDEMENT SKIN, SUBCU, MUSCLE, R great toe amp utation, wound LOWER EXTREMITY (WRVU 2.7) closure MODIFIER WOUND VAC R great toe amputation, wound closure documented as of this encounter Visit Diagnoses Not on filedocumented in this encounter Care Teams Automotive Parts Clerk Relationship Specialty Start Date End Date Eli Bergman MD PCP - General 11/21/11 04/20/13 [facility] GENERAL [place] [address] documented as of this encounter
--- OUTSIDE RECORDS SUMMARY | 2021-11-30 08:27 | XMS_ITS | Encounter Summary ---
:1955 Author Organization [facility] [place] [address] Care Team Providers Name Role Phone Eli Bergman MD Primary Care Provider Encounter Details Date Type Department Care Team Description 12/29/2012 Telephone Internal Medicine at [facility] Vidhya Puckett, [place] [address] Social History Tobacco Use Types Packs/Day [...] Telephone Encounter - Vidhya Puckett RN - 12/29/2012 3:17 PM EDT Spoke with Mr Ramos to let him know he would receive prescriptions for methadone and ritalin a clinic appt with Dr Bergman on 01/05 , rather than mail them to local pharmacy. ( both scripts are due on 01/06/13) documented in this encounter Plan of Treatment Upcoming Encounters Date Type Specialty Care Team Description 12/11/2021 Appointment Radiology 12/11/2021 Office Visit Orthopaedics Marion Tavera APRN [facility] ORTHOPAEDIC SURG [place], [place] [address] (Wo rk) 01/15/2022 Appointment Radiology Stiven Cervantes MD [facility] Pulmonary Medici [place], [place] [address] (Wo rk) Scheduled Procedures Name Priority Associated Diagnoses Date/Time DEBRIDEMENT SKIN, SUBCU, MUSCLE, R great toe amp utation, wound LOWER EXTREMITY (WRVU 2.7) closure MODIFIER WOUND VAC R great toe amputation, wound closure documented as of this encounter Visit Diagnoses Not on filedocumented in this encounter Care Teams Retail Product Demo Specialist Relationship Specialty Start Date End Date Eli Bergman MD PCP - General 11/21/11 04/20/[address] [facility] GENER[place] [address] documented as of this encounter
--- OUTSIDE RECORDS SUMMARY | 2021-11-30 08:27 | XMS_ITS | Encounter Summary ---
:1955 Author Organization [facility] [place] [address] Care Team Providers Name Role Phone Eli Bergman MD Primary Care Provider Reason for Visit Reason Comments Medication Refill Encounter Details Date Type Department Care Team Description 12/22/2012 Refill Psychiatry and Behavioral Sen Gomes MD [facility] Jenni hammer [place] [address] [place] [address] [phone] (Wo rk) Social History Tobacco Use Types [...] Orthopaedics Marion Tavera APRN [facility] DR ORTHOPAEDIC SURG [place], [place] [address] (Wo rk) 01/15/2022 Appointment Radiology Atkins, Stiven T , MD [facility] Pulmonary Medici [place], [place] [address] (Wo rk) Scheduled Procedures Name Priority Associated Diagnoses Date/Time DEBRIDEMENT SKIN, SUBCU, MUSCLE, R great toe amp utation, wound LOWER EXTREMITY (WRVU 2.7) closure MODIFIER WOUND VAC R great toe amputation, wound closure documented as of this encounter Visit Diagnoses Not on filedocumented in this encounter Care Teams Is Architect Relationship Specialty Start Date End Date Eli Bergman MD PCP - General 11/21/11 04/20/13 [facility] GENERAL [place] [address] documented as of this encounter
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
--- OUTSIDE RECORDS SUMMARY | 2021-11-30 08:27 | XMS_ITS | Encounter Summary ---
:1955 Author Organization [facility] [place] [address] Care Team Providers Name Role Phone Eli Bergman MD Primary Care Provider Reason for Visit Reason Onset Date Comments Medication Refill 10/06/2012 Encounter Details Date Type Department Care Team Description 10/06/2012 Refill Internal Medicine at [facility] Vidhya Puckett RN Pain (Primary Dx) [place] [address] Social History Tobacco Use Types Packs/Day [...] [facility] ORTHOPAEDIC SURG [place], [place] [address] (Wo rk) 01/15/2022 Appointment Radiology Stiven Cervantes MD [facility] Pulmonary Medici nelly [place], [place] [address] (Wo rk) Scheduled Procedures Name Priority Associated Diagnoses Date/Time DEBRIDEMENT SKIN, SUBCU, MUSCLE, R great toe amp utation, wound LOWER EXTREMITY (WRVU 2.7) closure MODIFIER WOUND VAC R great toe amputation, wound closure documented as of this encounter Visit Diagnoses Diagnosis Pain - Primary Generalized pain documented in this encounter Care Teams Automation And Control Engineer Relationship Specialty Start Date End Date Eli Bergman MD PCP - General 11/21/11 04/20/13 [facility] GENERAL [place] [address] documented as of this encounter
--- OUTSIDE RECORDS SUMMARY | 2021-11-30 08:27 | XMS_ITS | Encounter Summary ---
:1955 Author Organization [facility] [place] [address] Care Team Providers Name Role Phone Eli Bergman MD Primary Care Provider Reason for Visit Reason Comments Cellulitis ? 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 Gout [facility] [address] [place], [place] GENERAL INTERNAL [phone] MEDICINE [phone] [place], [place] [address] (Wo rk) Social History Tobacco [...] Sign Reading Time Taken Comments Blood Pressure 123/88 11/16/2012 1:22 PM EDT Pulse 69 11/16/2012 1:22 PM EDT Temperature 36.6 ??C (97.9 ??F) 11/16/2012 1:22 PM EDT Respiratory Rate - - Oxygen Saturation 98% 11/16/2012 1:22 PM EDT Inhaled Oxygen Concentration - - Weight - - Height - - Body Mass Index - - documented in this encounter Patient Instructions Patient InstructionsFarrukh Rios APRN - 11/16/2012 4:02 PM EDT Images from the original note were not included. [facility] Gout: After Your Visit Your Care Instructions Gout is a form of arthritis caused by a buildup of uric acid crystals in a joint. It causes sudden attacks of pain, swelling, redness, and stiffness, usually in one joint, especially the big toe. Gout usually comes on without a cause. But it can be brought on by drinking alcohol (especially beer) or eating seafood and red meat. Taking certain medicines, such as diuretics or aspirin, also can bring on an attack of gout. Taking your medicines as prescribed and following up with your doctor regularly can help you avoid gout attacks in the future. Follow-up care is a hansen part of your treatment and safety. Be sure to make and go to all appointments, and call your doctor if you are having problems. It???s also a good idea to know your test resultsand keep a list of the medicines you take. How can you care for yourself at home? ?? If the joint is swollen, put ice or a cold pack on the area for 10 to 20 minutes at a time. Put athin cloth between the ice and your skin. ?? Prop up the sore limb on a pillow when you ice it or anytime you sit or lie down during the next 3 days. Try to keep it above the level of your heart. This will help reduce swelling. ?? Rest sore joints. Avoid activities that put weight or strain on the joints for a few days. Take short rest breaks from your regular activities during the day. ?? Take your medicines exactly as prescribed. Call your doctor if you think you are having a problemwith your medicine. ?? Take pain medicines exactly as directed. ?? If the doctor gave you a prescription medicine for pain, take it as prescribed. ?? If you are not taking a prescription pain medicine, ask your doctor if you can take an pzng-wes-vfxrcue medicine. ?? Do not take two or more pain medicines at the same time unless the doctor told you to. Many pain medicines have acetaminophen, which is Tylenol. Too much acetaminophen (Tylenol) can be harmful. ?? Eat less seafood and red meat. ?? Check with your doctor before drinking alcohol. ?? Losing weight, if you are overweight, may help reduce attacks of gout. But do not go on a crash diet. Losing a lot of weight in a short amount of time can cause a gout attack. When should you call for help? Call your doctor now or seek immediate medical care if: ?? You have a fever. ?? The joint is so painful you cannot use it. ?? You have sudden, unexplained swelling, redness, warmth, or severe pain in one or more joints. Watch closely for changes in your health, and be sure to contact your doctor if: ?? You have joint pain. ?? Your symptoms get worse or are not improving after 2 or 3 days. Where can you learn more? Visit our health information library at [email or web address].[email or web address]. You can also view health information on [employer], your personal patient account. Log in or sign up today. Enter E531 in the search box to learn more about Gout: After Your Visit. ?? [id number] [employer]. Care instructions adapted under license by [facility]. This care instruction is for use with your licensed healthcare professional. If you have questionsabout a medical condition or this instruction, always ask your healthcare professional. [employer] disclaims any warranty or liability for your use of this information. Content Version: 9.1.292341; Last Revised: October [facility], [facility] Purine-Restricted Diet: After Your Visit Your Care Instructions Purines are substances that are found in some foods. Your body turns purines into uric acid. High levels of uric acid can cause gout, which is a form of arthritis that causes pain and inflammation in joints. You may be able to help control the amount of uric acid in your body by limiting high-purine foods in your diet. Follow-up care is a hansen part of your treatment and safety. Be sure to make and go to all appointments, and call your doctor if you are having problems. It???s also a good idea to know your test resultsand keep a list of the medicines you take. How can you care for yourself at home? ?? Plan your diet around foods that are low in purines and are safe for you to eat. These foods include: ?? Green vegetables and tomatoes. ?? Fruits and fruit juices. ?? Breads, rice, and cereals that are not whole-grain. ?? Chocolate and cocoa. ?? Coffee, tea, and carbonated beverages. ?? Peanut butter and nuts. ?? Cheese, milk, milk products, and eggs. ?? Fat and oils, in moderation. ?? Popcorn. ?? Vinegar, olives, pickles, and relishes. ?? Gelatin desserts. ?? Cakes, cookies, and sweets, in moderation. ?? You can eat certain foods that are medium-high in purines, but eat them only once in a while. These foods include: ?? Asparagus, cauliflower, spinach, mushrooms, and green peas. ?? Fish and seafood (other than very high-purine seafood). ?? Oatmeal, wheat bran, and wheat germ. ?? Limit very high-purine foods, including: ?? Organ meats, such as liver, kidneys, sweetbreads, and brains. ?? Meats, including oneil, beef, pork, and zuleta. ?? Game meats and any other meats in large amounts. ?? Anchovies, sardines, blackwood, mackerel, and scallops. ?? Gravy. ?? Legumes, such as dried beans and dried peas. ?? Beer. Where can you learn more? Visit our health information library at [email or web address].[email or web address]. You can also view health information on [employer], your personal patient account. Log in or sign up today. Enter F448 in the search box to learn more about Purine-Restricted Diet: After Your Visit. ?? [id number] [employer]. Care instructions adapted under license by [facility]. This care instruction is for use with your licensed healthcare professional. If you have questionsabout a medical condition or this instruction, always ask your healthcare professional. [employer] disclaims any warranty or liability for your use of this information. Content Version: 9.1.266537; Last Revised: September 25, 2010 documented in this encounter Progress Notes Farrukh Rios APRN - 11/16/2012 4:06 PM EDT Subjective: Patient ID: Soledad Wahl is a 57 y.o. male. HPI 57 y/o male patient with a history of hepatitis C presents with right foot pain. Patient states thatthis new problem has been going on for the past 1-2 weeks. Patient denies any injury or inciting event. Patient is able to ambulate but with some difficulty due to pain. Also experiencing decreased sensation in both feet for a while Patient has tried heat, ice and soaking his foot that has provided some relief. Patient also complaining of right shoulder pain over the past 3-6 weeks after a fall. Review of Systems Constitutional: Negative for fever, chills and fatigue. Respiratory: Negative for cough and shortness of breath. Cardiovascular: Positive for leg swelling (right lower leg and ankle ). Negative for chest pain. Gastrointestinal: Negative for vomiting, abdominal pain, diarrhea and constipation. Musculoskeletal: Negative for myalgias, back pain, joint swelling and arthralgias. Skin: Negative for color change, pallor, rash and wound. Neurological: Negative for dizziness, weakness, numbness and headaches. Hematological: Negative for adenopathy. Does not bruise/bleed easily. Objective: Physical Exam Constitutional: He is oriented to person, place, and time. He appears well- developed and well-nourished. No distress. HENT: Head: Normocephalic and atraumatic. Eyes: Conjunctivae normal are normal. Pupils are equal, round, and reactive to light. Cardiovascular: Normal rate, regular rhythm and normal heart sounds. Exam reveals no gallop and no friction rub. No murmur heard. Pulmonary/Chest: Effort normal and breath sounds normal. Musculoskeletal: He exhibits edema (2+ pitting edema right LE). Right ankle: He exhibits swelling. He exhibits no ecchymosis, no deformity, no laceration and normal pulse. tenderness. Neurological: He is alert and oriented to person, place, and time. Skin: He is not diaphoretic. Psychiatric: He has a normal mood and affect. His behavior is normal. Recent Results (from the past 24 hour(s)) CBC (WITH DIFF) Component Value Range WBC 9.0 4.0 - 10.0 x10(3)/mcL RBC 4.02 (*) 4.63 - 6.08 x10(6)/mcL Hemoglobin 13.0 (*) 13.7 - 17.5 gm/dL Hematocrit 39.3 (*) 40.0 - 51.0 % MCV 97.8 (*) 79.0 - 92.0 fL MCH 32.3 (*) 25.6 - 32.2 pg MCHC 33.1 32.0 - 36.5 gm/dL Platelets 293 145 - 370 x10(3)/mcL RDWSD 49.1 (*) 35.0 - 46.0 fL RDWCV 13.9 10.9 - 14.4 % MPV 9.6 9.0 - 12.0 fL PROTHROMBIN TIME Component Value Range PT 13.7 12.0 - 15.0 sec INR 1.0 0.9 - 1.1 URIC ACID Component Value Range Uric Acid 9.6 (*) 3.5 - 8.5 mg/dL DIFFERENTIAL, AUTOMATED Component Value Range Neutrophils % 62.0 34.0 - 71.0 % Neutr Abs (ANC) 5.57 1.50 - 6.30 x10(3)/mcL Lymphocytes % 22.4 19.0 - 53.0 % Lymphocytes Abs 2.0 1.0 - 3.6 x10(3)/mcL Monocytes % 8.0 4.0 - 13.0 % Monocyte Abs 0.7 0.2 - 1.0 x10(3)/mcL Eosinophils % 7.1 (*) 0.0 - 7.0 % Eosinophils Abs 0.6 (*) 0.0 - 0.5 x10(3)/mcL Basophils % 0.4 0.0 - 2.0 % Basophils Abs 0.0 0.0 - 0.2 x10(3)/mcL Immature Gran % 0.10 0.00 - 0.66 % Shannan Gran Abs 0.01 0.00 - 0.05 x10(3)/mcL Assessment and Plan: No problem-specific assessment & plan notes found for this encounter. Soledad was seen today for cellulitis and shoulder pain. Diagnoses and associated orders for this visit: Leg swelling - Duplex for DVT, Leg, Unilat; Future - negative - CBC (with Diff); Future - Uric acid; Future - Uric acid Gout - indomethacin (INDOCIN) 50 mg capsule; Take 1 capsule by mouth 3 times daily (with meals). Taper off as symptoms improve. - An After Visit Summary was printed and given to the patient which included teaching information about diagnosis. - Follow up if symptoms worsen and as needed. - Patient will Fu with PCP in two days or sooner as needed. Other Orders - Cancel: CBC (with Diff) Jerome Neri - 11/16/2012 2:00 PM EDT Subjective: Patient ID: Soledad Wahl is a 57 y.o. male. HPI 57 y/o male patient with a history of hepatitis C presents with right foot pain. Patient states thatthis new problem has been going on for the past 1-2 weeks. Patient denies any injury or inciting event. Patient is able to ambulate but with some difficulty due to pain. Also experiencing decreased sensation in both feet for a while Patient has tried heat, ice and soaking his foot that has provided some relief. Patient also complaining of right shoulder pain over the past 3-6 weeks after a fall. Review of Systems Constitutional: Negative for fever, chills and fatigue. Respiratory: Negative for cough and shortness of breath. Cardiovascular: Positive for leg swelling (right lower leg and ankle ). Negative for chest pain. Gastrointestinal: Negative for vomiting, abdominal pain, diarrhea and constipation. Musculoskeletal: Negative for myalgias, back pain, joint swelling and arthralgias. Skin: Negative for color change, pallor, rash and wound. Neurological: Negative for dizziness, weakness, numbness and headaches. Hematological: Negative for adenopathy. Does not bruise/bleed easily. Objective: Physical Exam Constitutional: He is oriented to person, place, and time. He appears well- developed and well-nourished. No distress. HENT: Head: Normocephalic and atraumatic. Eyes: Conjunctivae normal are normal. Pupils are equal, round, and reactive to light. Cardiovascular: Normal rate, regular rhythm and normal heart sounds. Exam reveals no gallop and no friction rub. No murmur heard. Pulmonary/Chest: Effort normal and breath sounds normal. Musculoskeletal: He exhibits edema (2+ pitting edema right LE). Right ankle: He exhibits swelling. He exhibits no ecchymosis, no deformity, no laceration and normal pulse. tenderness. Neurological: He is alert and oriented to person, place, and time. Skin: He is not diaphoretic. Psychiatric: He has a normal mood and affect. His behavior is normal. Assessment and Plan: No problem-specific assessment & plan notes found for this encounter. Soledad was seen today for cellulitis and shoulder pain. Diagnoses and associated orders for this visit: Leg swelling - Duplex for DVT, Leg, Unilat; Future - CBC (with Diff); Future - Uric acid; Future documented in this encounter Plan of Treatment Upcoming Encounters Date Type Specialty Care Team Description 12/11/2021 Appointment Radiology 12/11/2021 Office Visit Orthopaedics Marion Tavera APRN [facility] DR ORTHOPAEDIC SURG [place], [place] [address] (Wo rk) 01/15/2022 Appointment Radiology Stiven Cervantes MD [facility] Pulmonary Medici [place], [place] [address] (Wo rk) Scheduled Procedures Name Priority Associated Diagnoses Date/Time DEBRIDEMENT SKIN, SUBCU, MUSCLE, R great toe amp utation, wound LOWER EXTREMITY (WRVU 2.7) closure MODIFIER WOUND VAC R great toe amputation, wound closure documented as of this encounter Procedures Procedure Name Priority Date/Time Associated Diagnosis Comme nts URIC ACID STAT 11/16/2012 2:52 PM Leg swelling Results f or this EDT procedure are i n the results section . documented in this encounter Results Duplex for DVT, Leg, Unilat (11/16/2012 3:00 PM EDT) Component Value Ref Test Analysis Performed At [facility] Method Time Signature VB Text VASCUBASE Report Department: Vascular Surgery Lab Patient: [id number] (SOLEDAD WAHL) CPT Code: 19372 ICD-9: 782.3 Referring Physician: CHRIS NAIR Indication: ??Right calf swelling ICD9 Diagnosis Code: 782.3 Interpretation: RIGHT: Patent common femoral vein and popliteal vein with sp ontaneous, respirophasic Doppler wavefo sukhjinder that respond normally to augmentation maneuvers. The common femoral vein, sap henofemoral junction, femoral vein through the thigh and popliteal vein are fully compressible. Patent posterior tibial and peroneal veins with no evidence of thrombus. Interpretation: RIGHT: ??No evidence of lower extremity deep venous thrombos is. Comparison: ??No previous study in our vascular lab da tabase for comparison. Electronically Signed by: RAMOS FERRELL on 2012-11-20 06:41: 45 PM VB Text End of Report VASCUBASE Report Specimen (Source) Anatomical Collection Method Collection Time Re ceived Time Location / / Volume Laterality 11/16/2012 3:00 PM EDT Chris Nair MD VASCULAR ORDERABLES Performing Organization Address City/State/ZIP Code Phon e Number VASCUBASE (ABNORMAL) Uric acid (11/16/2012 2:52 PM EDT) P athologist Signature Uric Acid 9.6 (H) 3.5 - 8.5 CERNER mg/dL [place] Specimen Anatomical Collection Method Collection Time Receive d Time (Source) Location / / Volume Laterality Blood specimen 11/16/2012 2:52 PM 013 3:19 (specimen) EDT PM EDT Resulting Agency Comment Spec In Lab Chris Nair MD CHEMISTRY ORDERABLES Performing Organization Address City/State/[place] [address] CERNER [place]ENNI[place] documented in this encounter Visit Diagnoses Diagnosis Leg swelling - Primary Swelling of limb Gout Gout, unspecified documented in this encounter Care Teams Die Casting Machine Operator Relationship Specialty Start Date End Date Eli Bergman MD PCP - General 11/21/11 04/20/13 [facility] [place] [address] documented as of this encounter
--- OUTSIDE RECORDS SUMMARY | 2021-11-30 08:27 | XMS_ITS | Encounter Summary ---
:1955 Author Organization [facility] [place] [address] Care Team Providers Name Role Phone Eli Bergman MD Primary Care Provider Reason for Visit Reason Onset Date Comments Medication Refill 09/08/2012 Encounter Details Date Type Department Care Team Description 09/08/2012 Refill Internal Medicine at [facility] Vidhya Puckett RN Pain (Primary Dx) [place] [address] Social History Tobacco Use Types Packs/Day [...] APRN [facility] DR ORTHOPAEDIC SURG [place], [place] [address] (Wo rk) 01/15/2022 Appointment Radiology Stiven Cervantes MD [facility] Pulmonary Medici nelly [place], [place] [address] (Wo rk) Scheduled Procedures Name Priority Associated Diagnoses Date/Time DEBRIDEMENT SKIN, SUBCU, MUSCLE, R great toe amp utation, wound LOWER EXTREMITY (WRVU 2.7) closure MODIFIER WOUND VAC R great toe amputation, wound closure documented as of this encounter Visit Diagnoses Diagnosis Pain - Primary Generalized pain documented in this encounter Care Teams Computer Installation Engineer Relationship Specialty Start Date End Date Eli Bergman MD PCP - General 11/21/11 04/20/13 [facility] [place] [address] documented as of this encounter
--- OUTSIDE RECORDS SUMMARY | 2021-11-30 08:27 | XMS_ITS | Encounter Summary ---
:1955 Author Organization [facility] [place] [address] Care Team Providers Name Role Phone Eli Bergman MD Primary Care Provider Reason for Visit Reason Onset Date Comments Medication Refill 09/30/2012 Encounter Details Date Type Department Care Team Description 09/30/2012 Refill Internal Medicine at [facility] Vidhya Puckett RN Pain (Primary Dx) [place] [phone] Social History Tobacco Use Types Packs/Day [...] [facility] ORTHOPAEDIC SURG [place], [place] [address] (Wo rk) 01/15/2022 Appointment Radiology Stiven Cervantes MD [facility] Pulmonary Medici nelly [place], [place] [address] (Wo rk) Scheduled Procedures Name Priority Associated Diagnoses Date/Time DEBRIDEMENT SKIN, SUBCU, MUSCLE, R great toe amp utation, wound LOWER EXTREMITY (WRVU 2.7) closure MODIFIER WOUND VAC R great toe amputation, wound closure documented as of this encounter Visit Diagnoses Diagnosis Pain - Primary Generalized pain documented in this encounter Care Teams [facility] Relationship Specialty Start Date End Date Eli Bergman MD PCP - General 11/21/11 04/20/13 [facility] [place] [address] documented as of this encounter
--- OUTSIDE RECORDS SUMMARY | 2021-11-30 08:27 | XMS_ITS | Encounter Summary ---
:1955 Author Organization [place] [address] Care Team Providers Name Role Phone Eli Bergman MD Primary Care Provider Encounter Details Date Type Department Care Team Description 11/16/2012 Hospital Encounter Laboratory James Aiken Chronic hepatitis C; [facility] MD Milka Cirrhosis of liver Drive [facility] [id number] GASTROENTEROLOGY [phone] [facility] [place] [id number] Social History Tobacco Use Types Packs/Day Years [...] by 0 08/21/2012 (THERAGRAN) tablet mouth daily. indomethacin (INDOCIN) Take 1 capsule by 60 capsule 1 201201/11/2013 50 mg mouth 3 times daily capsuleIndications: (with meals). Taper Gout off as symptoms improve. methadone (DOLOPHINE) Take 4 tablets by 224 tablet 0 013 11/17/2012 10 mg mouth 4 times daily. tabletIndications: Pain Signed in the absence Dr Bergman methylphenidate Take 1 tablet by 112 tablet 0 11/03/2012 (RITALIN) 20 mg mouth 4 times daily. tabletIndications: Signed in the absence attention-deficit Dr Bergman hyperactivity disorder Indications: Attention-Deficit Hyperactivity Disorder buPROPion (WELLBUTRIN Take 1 tablet by 30 tablet 5 10/07/19 13 04/13/2013 XL) 300 mg 24 hr tablet mouth every morning. diaZEPam (VALIUM) 5 mg take 1 tablet by 90 tablet 2 013 12/22/2012 tablet mouth three times a day if needed for anxiety moxifloxacin (AVELOX) Take 1 tablet by 5 [...] [facility] ORTHOPAEDIC SURG [place], [place] [address] (Wo rk) 01/15/2022 Appointment Radiology Stiven Cervantes MD [facility] Pulmonary Medici [place], [place] [address] (Wo rk) Scheduled Procedures Name Priority Associated Diagnoses Date/Time DEBRIDEMENT SKIN, SUBCU, MUSCLE, R great toe amp utation, wound LOWER EXTREMITY (WRVU 2.7) closure MODIFIER WOUND VAC R great toe amputation, wound closure documented as of this encounter Procedures Procedure Name Priority Date/Time Associated Comments Diagnosis DIFFERENTIAL, Routine 11/16/2012 2:52 PM Results for this AUTOMATED EDT procedure are i n the results section. AFP TUMOR MARKER Routine 11/16/2012 2:52 PM Chronic hepa titis C Results for this EDT Cirrhosis of liver procedure are in the results section. PROTHROMBIN TIME Routine 11/16/2012 2:52 PM Chronic hepa titis C Results for this EDT Cirrhosis of liver procedure are in the results section. CBC (WITH DIFF) Routine 11/16/2012 2:52 PM Chronic hepat itis C Results for this EDT Cirrhosis of liver procedure are in the results section. COMPREHENSIVE Routine 11/16/2012 2:52 PM Chronic hepat itis C Results for this METABOLIC PANEL EDT Cirrhosis of liver proced ure are in (NON-FASTING) the results section. documented in this encounter Results (ABNORMAL) Differential, Automated (11/16/2012 2:52 PM EDT) [facility] gist Method Time Signature Neutrophils % 62.0 34.0 - CERNER 71.0 % MILLENNIUM Neutr Abs (ANC) 5.57 1.50 - CERNER 6.30 MILLENNIUM x10(3)/mcL Lymphocytes % 22.4 19.0 - CERNER 53.0 % MILLENNIUM Lymphocytes Abs 2.0 1.0 - 3.6 CERNER x10(3)/mcL MILLENNIUM Monocytes % 8.0 4.0 - 13.0 CERNER % MILLENNIUM Monocyte Abs 0.7 0.2 - 1.0 CERNER x10(3)/mcL MILLENNIUM Eosinophils % 7.1 (H) 0.0 - 7.0 CERNER % MILLENNIUM Eosinophils Abs 0.6 (H) 0.0 - 0.5 CERNER x10(3)/mcL MILLENNIUM Basophils % 0.4 0.0 - 2.0 CERNER % MILLENNIUM Basophils Abs 0.0 0.0 - 0.2 CERNER x10(3)/mcL MILLENNIUM Immature Gran % 0.10 0.00 - CERNER 0.66 % MILLENNIUM Comment: Immature granulocytes(IG's)percentage an d absolute count will include metamyelocytes, myelocytes, and promyelo cytes. Blood smears from CBCs yielding IG's will be scanned manually for concor dance. If this scan disagrees with the automated IG or if promyelocytes are not ed, a manual differential will be performed. Shannan Gran Abs 0.01 0.00 - 0.05 x10(3)/mcL [facility] Specimen Anatomical Collection Method Collection Time Receive d Time (Source) Location / / Volume Laterality Blood specimen 11/16/2012 2:52 PM 013 3:19 (specimen) EDT PM EDT James Aiken MD HEMATOLOGY ORDERABLES Performing Organization Address City/State/ZIP Code Phon e Number [address] [facility] AFP tumor marker (11/16/2012 2:52 PM EDT) athologist Signature AFP 3 <=5 ng/mL [facility] Comment: Note new Reference Range as of 2. Reference: Immulite 2000 AFP package ins ert ([id number], 2009-02-02) Specimen Anatomical Collection Method Collection Time Receive d Time (Source) Location / / Volume Laterality Blood specimen 11/16/2012 2:52 PM 013 8:07 (specimen) EDT AM EDT Resulting Agency Comment Spec In Lab James Aiken MD CHEMISTRY ORDERABLES Performing Organization Address City/[facility]/ZIP Code Phon e Number [address] [facility] Prothrombin Time (11/16/2012 2:52 PM EDT) athologist Signature PT 13.7 12.0 - 15.0 [facility] Comment: [facility] Transfusion Committee Guidelines: I NR less than 2.0, PTT less than OR equal to 43.5 seconds, or Fibrinogen gre ater than or equal to 100 mg/dl indicate adequate procoagulant activity for hemostasis in patients without underlying bleeding disorders. INR 1.0 0.9 - 1.1 [facility] Specimen Anatomical Collection Method Collection Time Receive d Time (Source) Location / / Volume Laterality Blood specimen 11/16/2012 2:52 PM 013 3:19 (specimen) EDT PM EDT Resulting Agency Comment Spec In Lab James Aiken MD HEMATOLOGY ORDERABLES Performing Organization Address City/State/[place] [address] CERNER MILLENNIUM (ABNORMAL) CBC (with Diff) (11/16/2012 2:52 PM EDT) athologist Signature WBC 9.0 4.0 - 10.0 CERNER x10(3)/mcL MILLENNIUM RBC 4.02 (L) 4.63 - CERNER 6.08 MILLENNIUM x10(6)/mcL Hemoglobin 13.0 (L) 13.7 - CERNER 17.5 gm/dL MILLENNIUM Hematocrit 39.3 (L) 40.0 - CERNER 51.0 % MILLENNIUM MCV 97.8 (H) 79.0 - CERNER 92.0 fL MILLENNIUM MCH 32.3 (H) 25.6 - CERNER 32.2 pg MILLENNIUM MCHC 33.1 32.0 - CERNER 36.5 gm/dL MILLENNIUM Platelets 293 145 - 370 CERNER x10(3)/mcL MILLENNIUM RDWSD 49.1 (H) 35.0 - CERNER 46.0 fL MILLENNIUM RDWCV 13.9 10.9 - CERNER 14.4 % MILLENNIUM MPV 9.6 9.0 - 12.0 CERNER fL MILLENNIUM Specimen Anatomical Collection Method Collection Time Receive d Time (Source) Location / / Volume Laterality Blood specimen 11/16/2012 2:52 PM 013 3:19 (specimen) EDT PM EDT Resulting Agency Comment Spec In Lab James Aiken MD HEMATOLOGY ORDERABLES Performing Organization Address [facility]/ZIP [place] [address] CERNER MILLENNIUM (ABNORMAL) Comprehensive metabolic panel (non-fasting) (11/16/2012 2:52 PM EDT) athologist Signature Glucose Lvl 81 60 - 199 CERNER mg/dL MILLENNIUM Comment: Diabetes: >=200 mg/dL plus symp toms BUN 9 (L) 10 - 20 mg/dL CERNER MILLENNIU M Creatinine 1.18 0.80 - 1.50 mg/dL CERNER MILL ENNIUM Comment: Please note that the pediatric reference intervals supplied above were not validated at [facility]. Results from pediatri c patients should be interpreted in conjunction to the patient's age, height and muscle mass. Sodium 138 135 - 145 mmol/L CERNER GERBER NIUM Potassium 3.9 3.5 - 5.0 mmol/L CERNER GERBER NIUM Comment: Please note: ??Patients with WBC >100,00 0 may have falsely elevated Potassium levels. ??For accurate Potassium quantif ication in these patients send serum separator tube (gold top) for subsequent determinations. ??Contact the Clinical Chemistry Laboratory if there are any qu estions. Chloride 102 98 - 107 mmol/L CERNER MILLENN IUM CO2 25 22 - 31 mmol/L CERNER MILLENNI UM Anion Gap 11 5 - 15 mmol/L CERNER MILLENNIU M Calcium 9.5 8.5 - 10.5 mg/dL CERNER GERBER NIUM Total Protein 7.4 6.4 - 8.3 gm/dL CERNER MIL LENNIUM Albumin 4.4 3.2 - 5.2 gm/dL CERNER MILLENN IUM AST 33 0 - 39 unit/L CERNER MILLENNIU M ALT 29 0 - 55 unit/L CERNER MILLENNIU M Alk Phos 130 (H) 40 - 120 unit/L CERNER MILLENN IUM Total Bilirubin 0.3 0.2 - 1.3 mg/dL CERNER M ILLENNIUM [...] the following links into your internet browser. http://www.nkdep.nih.gov/lab-evaluation. shtml http://www.kidney.org/professionals/ Specimen Anatomical Collection Method Collection Time Receive d Time (Source) Location / / Volume Laterality Blood specimen 11/16/2012 2:52 PM 013 3:19 (specimen) EDT PM EDT Resulting Agency Comment Spec In Lab James Aiken MD CHEMISTRY ORDERABLES Performing Organization Address City/State/[place] [address] [facility] documented in this encounter Visit Diagnoses Diagnosis Chronic hepatitis C Chronic hepatitis C without mention of h epatic coma Cirrhosis of liver Cirrhosis of liver without mention of al cohol documented in this encounter Care Teams Replenishment Analyst Relationship Specialty Start Date End Date Eli Bergman MD PCP - General 11/21/11 04/20/13 [facility] GENERAL [place] [address] documented as of this encounter
--- OUTSIDE RECORDS SUMMARY | 2021-11-30 08:27 | XMS_ITS | Encounter Summary ---
:1955 Author Organization [place] [address] Care Team Providers Name Role Phone Eli Bergman MD Primary Care Provider Encounter Details Date Type Department Care Team Description 01/06/2013 Hospital Encounter Laboratory Chris Monae MD Narcotic drug [facility] [place] GENERAL INTERNAL [address] MEDICINE [phone] [place], [place] [address] Social History Tobacco Use Types [...] [facility] DR ORTHOPAEDIC SURG [place], [place] [address] (Wo rk) 01/15/2022 Appointment Radiology Stiven Cervantes MD [facility] Pulmonary Medici [place], [place] [address] (Wo rk) Scheduled Procedures Name Priority Associated Diagnoses Date/Time DEBRIDEMENT SKIN, SUBCU, MUSCLE, R great toe amp utation, wound LOWER EXTREMITY (WRVU 2.7) closure MODIFIER WOUND VAC R great toe amputation, wound closure documented as of this encounter Procedures Procedure Name Priority Date/Time Associated Comments Diagnosis METHADONE, URINE, Routine 01/06/2013 7:18 AM Resu lts for this CONFIRMATION EDT procedure are i n the results section. DRUG SCREEN WITH Routine 01/06/2013 7:18 AM Narcotic drug use Results for this CONFIRMATION, URINE EDT procedur e are in (SEND OUT) the results section. BENZODIAZEPINE, URINE Routine 01/06/2013 7:18 AM Results for this CONFIRMATION EDT procedure are i n the results section. documented in this encounter Results Methadone, Urine Confirmation (01/06/2013 7:18 AM EDT) [facility] Method Time Signature U Meth Conf CERNER Test ?Result ?? Flag ??Unit ?? RefValue MILLENNIUM Drug of Abuse, Methadone Conf, U ??GC/MS Confirmation - ?Positive ?Ne gative ?Methadone ??Methadone ? 844 ?ng/ mL ??Cutoff: <100 This report is intended for use in clinical monitoring and management of patients. It is not intended for use in employment-related drug testing. Test Performed by: [employer] [address], [place] [address] Daycare Manager: Berna Martino, Ph.D. Specimen Anatomical Collection Method Collection Time Receive d Time (Source) Location / / Volume Laterality Urine specimen 01/06/2013 7:18 AM 013 8:36 (specimen) EDT AM EDT Resulting Agency Comment Spec In Lab Chris Monae MD URINE ORDERABLES Performing Organization Address City/State/[place] [address] [facility] Benzodiazepine, Urine Quantitative (01/06/2013 7:18 AM EDT) [facility] Method Time Signature U Benzo Conf CERNER Test ?Result ?? Flag ??Unit ?? RefValue MILLENNIUM Drug of Abuse, Benzo Conf, U ??GC/MS Confirmation - ?Positive ?Benzodiazepine ??Lorazepam ? Negative ? ng/mL ?? Cutoff: <100 ??Nordiazepam ? 338 ?ng/mL ??Cutoff: <100 ??Oxazepam ?1612 ? ng/ mL ??Cutoff: <100 ??Temazepam ? 1001 ? ng/mL ??Cutoff: <100 ??EY-Yxgwl-Nqrszjovzw ? Negative ? ng/mL ??Cutof f: <100 ??4-FJ-Gpnxcjuaoi ? Negative ? ng/mL ??Cut off: <100 ??5-BX-Nmueqeogwtpqq ?Negative ? ng/mL ??Cuto ff: <50 ??Alpha OH-Alprazolam ? Negative ? ng/mL ??Cutof f: <100 ??Zghls-JL-Eerzwgbba ?Negative ? ng/mL ??Cuto ff: <100 This report is intended for use in clinical monitoring and management of patients. It is not intended for use in employment-related drug testing. Test Performed by: [facility] [employer] [address], [place] [address] Daycare Manager: Berna Martino, Ph.D. Specimen Anatomical Collection Method Collection Time Receive d Time (Source) Location / / Volume Laterality Urine specimen 01/06/2013 7:18 AM 013 8:36 (specimen) EDT AM EDT Resulting Agency Comment Spec In Lab Chris Monae MD URINE ORDERABLES Performing Organization Address City/State/[place] [address] CERNER MILLENNIUM Drug Screen with Confirmation, Urine (01/06/2013 7:18 AM EDT) Component Value Ref Test Analysis Performed At [facility] Range Method Time Signature U BRITTNEE [...] employment-related drug testing. Test Performed by: [facility] [address], [place] [address] Daycare Manager: Berna Martino, Ph.D. Specimen Anatomical Collection Method Collection Time Receive d Time (Source) Location / / Volume Laterality Urine specimen 01/06/2013 7:18 AM 013 8:36 (specimen) EDT AM EDT Resulting Agency Comment Spec In Lab Chris Monae MD URINE ORDERABLES Performing Organization Address City/State/[place] [address] [facility] documented in this encounter Visit Diagnoses Diagnosis Narcotic drug use Sedative, hypnotic or anxiolytic abuse, unspecified documented in this encounter Care Teams Second Baker Relationship Specialty Start Date End Date Eli Bergman MD PCP - General 11/21/11 04/20/[address] [facility] GENERAL [place] [address] documented as of this encounter
--- OUTSIDE RECORDS SUMMARY | 2021-11-30 08:27 | XMS_ITS | Encounter Summary ---
:1955 Author Organization [facility] Address [facility] [place] [address] Care Team Providers Name Role Phone Eli Bergman MD Primary Care Provider Encounter Details Date Type Department Care Team Description 11/24/2012 Telephone [place] Medicine [place] [facility] [place] Bergman MD [facility], [place] [address] GENERAL INTERNAL MEDICINE [phone] [place], [place] [address] (Wo rk) Social History Tobacco [...] this encounter Miscellaneous Notes Telephone Encounter - Nina Yates LPN - 11/24/2012 2:52 PM EDT Patient call back: pt states he is unable to make his same day appointment schedule for tomorrow 11/25 Endoscopy. States he just can't make it he has to much going on Called GI they will call patient to reschedule. documented in this encounter Plan of Treatment Upcoming Encounters Date Type Specialty Care Team Description 12/11/2021 Appointment Radiology 12/11/2021 Office Visit Orthopaedics Marion Tavera APRN [facility] ORTHOPAEDIC SURG [place], [place] [address] (Wo rk) 01/15/2022 Appointment Radiology Stiven Cervantes MD [facility] Pulmonary Medici [place], [place] [address] (Wo rk) Scheduled Procedures Name Priority Associated Diagnoses Date/Time DEBRIDEMENT SKIN, SUBCU, MUSCLE, R great toe amp utation, wound LOWER EXTREMITY (WRVU 2.7) closure MODIFIER WOUND VAC R great toe amputation, wound closure documented as of this encounter Visit Diagnoses Not on filedocumented in this encounter Care Teams Plastic Battery Assembler Relationship Specialty Start Date End Date Eli Bergman MD PCP - General 11/21/11 04/20/13 [facility] [place] [address] documented as of this encounter
--- OUTSIDE RECORDS SUMMARY | 2021-11-30 08:27 | XMS_ITS | Encounter Summary ---
:1955 Author Organization [facility] [place] [address] Care Team Providers Name Role Phone Eli Bergman MD Primary Care Provider Encounter Details Date Type Department Care Team Description 12/01/2012 Notes Only Internal Medicine [place] [facility] Vidhy[place] Puckett, [place] [address] Social History Tobacco Use Types Packs/Day [...] encounter Progress Notes Vidhya Puckett, RN - 12/01/2012 10:41 AM EDT Methadone refill q 14 days information: Methadone 10 mg tabs #224 q14 days Refill Due 12/09 every 2 weeks Written on 12/01 Mail 12/03 Refill Due next 12/23 Generate on 12/14 RA Alonzo Last visit 08/25/12 Next appt 11/18/12 UDS 08/25/12 Repeat 12/18/12 Contract 04/04/09 Resign at visit 12/18/12 NOS visit 11/18/12 Madalyn /Enrique documented in this encounter Plan of Treatment Upcoming Encounters Date Type Specialty Care Team Description 12/11/2021 Appointment Radiology 12/11/2021 Office Visit Orthopaedics Marion Tavera APRN [facility] ORTHOPAEDIC SURG [place], [place] [address] (Wo rk) 01/15/2022 Appointment Radiology Stiven Cervantes MD [facility] Pulmonary Medici [place], [place] [address] (Wo rk) Scheduled Procedures Name Priority Associated Diagnoses Date/Time DEBRIDEMENT SKIN, SUBCU, MUSCLE, R great toe amp utation, wound LOWER EXTREMITY (WRVU 2.7) closure MODIFIER WOUND VAC R great toe amputation, wound closure documented as of this encounter Visit Diagnoses Not on filedocumented in this encounter Care Teams Head Baker Relationship Specialty Start Date End Date Eli Bergman MD PCP - General 11/21/11 04/20/13 [facility] GENERAL [place] [address] documented as of this encounter
--- OUTSIDE RECORDS SUMMARY | 2021-11-30 08:27 | XMS_ITS | Encounter Summary ---
:1955 Author Organization [facility] [place] [address] Care Team Providers Name Role Phone Eli Bergman MD Primary Care Provider Encounter Details Date Type Department Care Team Description 12/01/2012 Notes Only Internal Medicine at [facility] Vidhya Puckett, [place] [address] Social History Tobacco Use Types Packs/Day [...] Progress Notes Vidhya Puckett, RN - 12/01/2012 10:38 AM EDT Refill information Ritalin every 28 days Refill Due 12/09 Written on 12/01 Mail on 12/03 Next refill due 01/06 Generate on 01/01 Ritalin 20mg 4 x day 28 days # [address] [facility] [place] Last visit 08/25/12 Next visit 12/18/12 NOS 11/18/12 UDS 08/25/12 Repeat 12/18/12 Order in Contract last signed 04/04/2009 Needs next visit 12/18/12 Prepared documented in this encounter Plan of Treatment Upcoming Encounters Date Type Specialty Care Team Description 12/11/2021 Appointment Radiology 12/11/2021 Office Visit Orthopaedics Marion Tavera APRN [facility] ORTHOPAEDIC SURG [place], [place] [address] (Wo rk) 01/15/2022 Appointment Radiology Stiven Cervantes MD [facility] Pulmonary Medici [place], [place] [address] (Wo rk) Scheduled Procedures Name Priority Associated Diagnoses Date/Time DEBRIDEMENT SKIN, SUBCU, MUSCLE, R great toe amp utation, wound LOWER EXTREMITY (WRVU 2.7) closure MODIFIER WOUND VAC R great toe amputation, wound closure documented as of this encounter Visit Diagnoses Not on filedocumented in this encounter Care Teams Spread Cutter Relationship Specialty Start Date End Date Eli Bergman MD PCP - General 11/21/11 04/20/13 [facility] [place] [address] documented as of this encounter
--- OUTSIDE RECORDS SUMMARY | 2021-11-30 08:27 | XMS_ITS | Encounter Summary ---
:1955 Author Organization [place] [place] [address] Care Team Providers Name Role Phone Eli Bergman MD Primary Care Provider Reason for Visit Reason Comments Depression Encounter Details Date Type Department Care Team Description 12/29/2012 Office Visit Psychiatry and Sen Gomes MD Major depressive Behavioral Health at [facility] johnny chong [facility] jenkins, moderate [facility] PSYCHIATRY DE PT (Primary Dx) [address] [phone] (Work) [phone] Social History Tobacco Use Types Packs/Day Years [...] Sign Reading Time Taken Comments Blood Pressure 158/89 12/29/2012 1:02 PM EDT Pulse 67 12/29/2012 1:02 PM EDT Temperature - - Respiratory Rate - - Oxygen Saturation - - Inhaled Oxygen Concentration - - Weight - - Height - - Body Mass Index - - documented in this encounter Progress Notes Mahin Lowry MD - 12/29/2012 1:30 PM EDT Attending Physician: Mahin Lowry MD Resident name: Sen Gomes MD I saw and evaluated the patient with the above named resident/ See their note for details. I reviewed the patient's history during the visit and I agree with the details as written. My exam confirms the resident's findings. The assessment and plan were formulated in discussion with me and I agree with them as documented. Major issues discussed: Pt doing well. some stresses from children and grandchildren moving in with him but using skills learned from Norberto Hernandez to manage . No med changes, Additional INformation Sen Gomes MD - 12/29/2012 12:50 PM EDT ESTABLISHED ADULT PATIENT OFFICE VISIT NOTE Time Spent: 30 minutes Attendee(s): Patient This patient was seen with Dr. Mahin Lowry. See his note for confirmatory and/or revisionary documentation. HISTORY Chief Complaint: Mahin Ramos is a 56 y.o. Male presents today with anxiety and depression HPI: () Mr. Ramos is a 56 yo male w/ h/o depression, anxiety, and ADHD. The patient continues to note that his symptoms are well controlled on his current medication regimen. He reports that his mood has been stable despite a number of stressors 2/2 multiple family members living in his home. He notes that heat times become agitated, but denies any inappropriate outbursts or interactions--noting that he is able to use relaxation and reframing techniques to cope with the situation. He reports continued anxiety surrounding his living situation, his future, and chronic pain, though notes that diazepam helps with this anxiety. He denies any sedation despite the combination of diazepam and methadone. The patient denies any alcohol use or behaviors that would be concerning for abuse of prescribed medications.Methylphenidate is now being prescribed by [facility], with no noted change in the dose.. Current psychotropic medications: Bupropion XL 300 mg PO Daily Methylphenidate 20 mg PO QID Diazepam 5 mg PO TID PRN anxiety Current Medications: Current Outpatient Prescriptions on File Prior to Visit Medication Status Sig Dispense Refill ??? diaZEPam (VALIUM) 5 mg tablet Active take 1 tablet by mouth three times a day if needed for anxiety 90 tablet 2 ??? methadone (DOLOPHINE) 10 mg tablet Active Take 4 tablets by mouth 4 times daily. Signed in the absence Dr Bergman 224 tablet 0 ??? methylphenidate (RITALIN) 20 mg tablet Active Take 1 tablet by mouth 4 times daily. Signed in the absence Dr Bergman Indications: Attention-Deficit Hyperactivity Disorder 112 tablet 0 ??? indomethacin (INDOCIN) 50 mg capsule Active Take 1 capsule by mouth 3 times daily (with meals). Taper off as symptoms improve. 60 capsule 1 ??? buPROPion (WELLBUTRIN XL) 300 mg 24 hr tablet Active Take 1 tablet by mouth every morning. 30 tablet 5 ??? multivitamin (THERAGRAN) tablet Active Take 1 tablet by mouth daily. ??? moxifloxacin (AVELOX) 400 mg tablet Active Take 1 tablet by mouth daily. 5 tablet 0 ??? atenolol (TENORMIN) 50 mg tablet Active Take 1 tablet by mouth 2 times daily. 90 tablet 3 ??? famotidine (PEPCID) 20 mg tablet Active Take 1 tablet by mouth 2 times daily. 60 tablet 12 ??? amlodipine (NORVASC) 5 mg tablet Active Take 1 tablet by mouth daily. 90 [...] Prozac, Zoloft - Past Hospitalizations: detox at [facility] - Substance abuse: h/o alcohol dependence (quit drinking around 4 years ago, doing AA over phone); h/o opioid dependence on methadone Family Psychiatric and Medical History: Denies history of depression, anxiety, bipolar, schizophrenia Social History: Still living with and son, daughter, 3 grandchildren. Currently on disability, worked in [employer]. Still helping son w/ mowing some lawns. EXAM [10/18/13 bullets (incl VS)] Constitutional System ?? Vital Signs: Blood pressure 158/89, pulse 67. Musculoskeletal System ?? Muscle Strength/Tone (note atrophy, abnormal movements): No abnormal movements noted ?? Gait and Station: Moderately dysarthric gait Psychiatric System ?? General Appearance/Behavior: Casually dressed ?? Speech: Slow with normal volume/tone ?? Thought Process: Linear and logical ?? Associations: Intact ?? Abnormal Thoughts and Perceptions / Thought Content: Homicidality / Violent Thoughts: Denies Suicidality: Denies Hallucinations: Denies Delusions: Denies Obsessions: Denies ?? Judgment and Insight: good ?? Mood & Affect: Euthymic w/ congrent affect ?? Orientation: AAOx4 ?? Attention/Concentration: Appropriate ?? Memory: Remote and recent memory intact ?? Language: fluent [place]se ?? Fund of Knowledge: Grossly intact MEDICAL DECISION MAKING ASSESSMENT: Mahin Ramos is a 57 y.o. Male with depression, anxiety, and ADHD who continues to reports stable symptoms. Despite noting stress secondary to multiple family members now living in his home, he is able to describe the effective use of reframing and relaxation techniques, and notes that they help significantly. The patient does has a history of substance abuse and is some potentially abusive medications, but reports sobriety and good control of symptoms, and abuse of prescribed medications continues to appear unlikely. Will continue the patient's current medication regimen at this timeand have him return for follow up in 3 months. Despite denying and sedation with the combination of diazepam and methadone, the patient was warned of the sedating effects and instructed to not drive. PLAN: - Continue Bupropion XL 300 mg PO Daily - Continue Diazepam 5 mg PO TID PRN anxiety - Methylphenidate is now being managed by [facility] (per patient) - Continue to utilize reframing and relaxation techniques - RTC in 3 months documented in this encounter Plan of Treatment Upcoming Encounters Date Type Specialty Care Team Description 12/11/2021 Appointment Radiology 12/11/2021 Office Visit Orthopaedics Marion Tavera APRN [facility] DR ORTHOPAEDIC SURG [place], [place] [address] (Wo rk) 01/15/2022 Appointment Radiology Stiven Cervantes MD [facility] er Pulmonary Medici ne [place], [place] [address] (Wo rk) Scheduled Procedures Name Priority Associated Diagnoses Date/Time DEBRIDEMENT SKIN, SUBCU, MUSCLE, R great toe amp utation, wound LOWER EXTREMITY (WRVU 2.7) closure MODIFIER WOUND VAC R great toe amputation, wound closure documented as of this encounter Visit Diagnoses Diagnosis Major depressive disorder, recurrent epi sode, moderate - Primary documented in this encounter Care Teams Cone Tender Relationship Specialty Start Date End Date Eli Bergman MD PCP - General 11/21/11 04/20/13 [facility] [place] [address] documented as of this encounter
--- OUTSIDE RECORDS SUMMARY | 2021-11-30 08:27 | XMS_ITS | Encounter Summary ---
:1955 Author Organization [facility] [place] [address] Care Team Providers Name Role Phone Eli Bergman MD Primary Care Provider Encounter Details Date Type Department Care Team Description 10/07/2012 Telephone Internal Medicine at [facility] Sommer Buck[facility] [place] [address] Social History Tobacco Use Types Packs/Day [...] this encounter Miscellaneous Notes Telephone Encounter - Sommer Buck RN - 10/07/2012 8:38 AM EDT Patient called the clinic today stating that he has ongoing right shoulder pain. States that this isnot a new problem for him, but that the pain is getting worse. He is requesting to see Dr. Bergman tohave it evaluated. Dr. Bergman does not have any appointments available for the next month. Patient offered an appointment with another provider. Patient declined stating he only wants to see Dr. Bergman. Will notify [place] Team secretaries (to watch for cancellation) and Dr. Bergman. documented in this encounter Plan of Treatment Upcoming Encounters Date Type Specialty Care Team Description 12/11/2021 Appointment Radiology 12/11/2021 Office Visit Orthopaedics Marion Tavera APRN [facility] DR ORTHOPAEDIC SURG [place], [place] [address] (Wo rk) 01/15/2022 Appointment Radiology Stiven Cervantes MD [facility] Pulmonary Medici nelly [place], [place] [address] (Wo rk) Scheduled Procedures Name Priority Associated Diagnoses Date/Time DEBRIDEMENT SKIN, SUBCU, MUSCLE, R great toe amp utation, wound LOWER EXTREMITY (WRVU 2.7) closure MODIFIER WOUND VAC R great toe amputation, wound closure documented as of this encounter Visit Diagnoses Not on filedocumented in this encounter Care Teams Clerical Warehouseman Relationship Specialty Start Date End Date Eli Bergman MD PCP - General 11/21/11 04/20/13 [facility] GENERAL [place] [address] documented as of this encounter
--- OUTSIDE RECORDS SUMMARY | 2021-11-30 08:27 | XMS_ITS | Encounter Summary ---
:1955 Author Organization [facility] [place] [address] Care Team Providers Name Role Phone Eli Bergman MD Primary Care Provider Reason for Visit Reason Comments Medication Refill Encounter Details Date Type Department Care Team Description 09/17/2012 Refill Psychiatry and Behavioral Sen Gomes MD [facility] Jenni hammer [place] [address] [place] [address] [phone] (Wo rk) Social History Tobacco Use Types [...] APRN [facility] DR ORTHOPAEDIC SURG [place], [place] [address] (Wo rk) 01/15/2022 Appointment Radiology Atkins, Stiven T , MD [facility] Pulmonary Medici ne [place], [place] [address] (Wo rk) Scheduled Procedures Name Priority Associated Diagnoses Date/Time DEBRIDEMENT SKIN, SUBCU, MUSCLE, R great toe amp utation, wound LOWER EXTREMITY (WRVU 2.7) closure MODIFIER WOUND VAC R great toe amputation, wound closure documented as of this encounter Visit Diagnoses Not on filedocumented in this encounter Care Teams Outside Parts Sales Relationship Specialty Start Date End Date Eli Bergman MD PCP - General 11/21/11 04/20/13 [facility] GENERAL [place] [address] documented as of this encounter
--- OUTSIDE RECORDS SUMMARY | 2021-11-30 08:27 | XMS_ITS | Encounter Summary ---
:1955 Author Organization [facility] [place] [address] Care Team Providers Name Role Phone Eli Bergman MD Primary Care Provider Encounter Details Date Type Department Care Team Description 09/22/2012 Orders Only Internal Medicine at [facility], Farhana Renteria risk medication [facility] RN use (Primary Dx) [place] [address] Social History Tobacco Use Types Packs/Day [...] Orthopaedics Marion Tavera APRN [facility] ER ORTHOPAEDIC SURG [place], [place] [address] (Wo rk) 01/15/2022 Appointment Radiology Stiven Cervantes MD [facility] er Pulmonary Medici nelly [place], [place] [address] (Wo rk) Scheduled Procedures Name Priority Associated Diagnoses Date/Time DEBRIDEMENT SKIN, SUBCU, MUSCLE, R great toe amp utation, wound LOWER EXTREMITY (WRVU 2.7) closure MODIFIER WOUND VAC R great toe amputation, wound closure documented as of this encounter Visit Diagnoses Diagnosis High risk medication use - Primary Encounter for long-term (current) use of other medications documented in this encounter Care Teams Client Partner Relationship Specialty Start Date End Date Eli Bergman MD PCP - General 11/21/11 04/20/13 [facility] GENERAL [place] [address] documented as of this encounter
--- OUTSIDE RECORDS SUMMARY | 2021-11-30 08:27 | XMS_ITS | Encounter Summary ---
:1955 Author Organization [facility] [place] [address] Care Team Providers Name Role Phone Eli Bergman MD Primary Care Provider Encounter Details Date Type Department Care Team Description 11/17/2012 Notes Only Internal Medicine at [facility] Vidhya Puckett, [place] [address] Social History Tobacco Use Types Packs/Day [...] encounter Progress Notes Vidhya Puckett, VINCENT - 11/17/2012 9:12 AM EDT Methadone refill information Refilled every 2 weeks Methadone 10 mg tabs #224 q14 days Due 11/25 Written on 11/17 Mail 11/19 Due next 12/09 Generate on 11/30 RA Alonzo Last visit 08/25/12 Next appt 11/18/12 UDS 08/25/12 Contract 04/04/09 Resign at visit 11/18/12 Bergman /Min documented in this encounter Plan of Treatment Upcoming Encounters Date Type Specialty Care Team Description 12/11/2021 Appointment Radiology 12/11/2021 Office Visit Orthopaedics Marion Tavera APRN [facility] ORTHOPAEDIC SURG [place], [place] [address] (Wo rk) 01/15/2022 Appointment Radiology Stiven Cervantes MD [facility] Pulmonary Medici [place], [place] [address] (Wo rk) Scheduled Procedures Name Priority Associated Diagnoses Date/Time DEBRIDEMENT SKIN, SUBCU, MUSCLE, R great toe amp utation, wound LOWER EXTREMITY (WRVU 2.7) closure MODIFIER WOUND VAC R great toe amputation, wound closure documented as of this encounter Visit Diagnoses Not on filedocumented in this encounter Care Teams Heating And Refrigeration Inspector Relationship Specialty Start Date End Date Eli Bergman MD PCP - General 11/21/11 04/20/13 [facility] [place] [address] documented as of this encounter
--- OUTSIDE RECORDS SUMMARY | 2021-11-30 08:27 | XMS_ITS | Encounter Summary ---
:1955 Author Organization [place] [address] Care Team Providers Name Role Phone Brian Fall APRN Primary Care Provider Reason for Visit Reason Comments Medication Refill Encounter Details Date Type Department Care Team Description 12/21/2012 Refill Psychiatry and Behavioral Sen Gomes MD [facility] Jenni [place] [address] [place] [address] [phone] (Wo rk) Social History Tobacco Use Types [...] APRN [facility] DR ORTHOPAEDIC SURG [place], [place] [address] (Wo rk) 01/15/2022 Appointment Radiology Atkins, Stiven T , MD [facility] Pulmonary Tim [place], [place] [address] (Wo rk) Scheduled Procedures Name [...] documented as of this encounter Care Teams Fisher Reef Net Relationship Specialty Start Date End Date Brian Fall APRN PCP - General Internal Medicine 04/07/[address] [place] [phone] documented as of this encounter
--- OUTSIDE RECORDS SUMMARY | 2021-11-30 08:27 | XMS_ITS | Encounter Summary ---
:1955 Author Organization [facility] [place] [address] Care Team Providers Name Role Phone Eli Bergman MD Primary Care Provider Encounter Details Date Type Department Care Team Description 11/16/2012 Ancillary Appointment Vascular Surgery at [facility] [place], [place] [address] Social History Tobacco Use Types Packs/Day [...] Marion Tavera APRN [facility] ER ORTHOPAEDIC SURG [place], [place] [address] (Wo rk) 01/15/2022 Appointment Radiology Stiven Cervantes MD [facility] er Pulmonary Medici nelly [place], [place] [address] (Wo rk) Scheduled Procedures Name Priority Associated Diagnoses Date/Time DEBRIDEMENT SKIN, SUBCU, MUSCLE, R great toe amp utation, wound LOWER EXTREMITY (WRVU 2.7) closure MODIFIER WOUND VAC R great toe amputation, wound closure documented as of this encounter Procedures Procedure Name Priority Date/Time Associated Diagnosis Comme nts DUPLEX FOR DVT, STAT 11/16/2012 3:00 PM Leg swelling Result s for this LEG, UNILAT EDT procedure are i n the results section. documented in this encounter Results Duplex for DVT, Leg, Unilat (11/16/2012 3:00 PM EDT) Component Value Ref Test Analysis Performed At [facility] Range Method Time Signature VB Text VASCUBASE Report Department: Vascular Surgery Lab Patient: [id number] ([facility]) CPT Code: 81153 ICD-9: 782.3 Referring Physician: CHRIS NAIR Indication: [...] this encounter Visit Diagnoses Diagnosis Leg swelling Swelling of limb documented in this encounter Care Teams Chemical Economist Relationship Specialty Start Date End Date Eli Bergman MD PCP - General 11/21/11 04/20/13 [facility] [place] [address] documented as of this encounter
--- OUTSIDE RECORDS SUMMARY | 2021-11-30 08:27 | XMS_ITS | Encounter Summary ---
:1955 Author Organization [place] [address] Care Team Providers Name Role Phone Eli Bergman MD Primary Care Provider Reason for Visit Reason Onset Date Comments Medication Refill 12/01/2012 Encounter Details Date Type Department Care Team Description 12/01/2012 Refill Internal Medicine at [facility] Vidhya Puckett RN Pain (Primary Dx) [place] [address] Social History Tobacco Use Types Packs/Day [...] [facility] ORTHOPAEDIC SURG [place], [place] [address] (Wo rk) 01/15/2022 Appointment Radiology Stiven Cervantes MD [facility] Pulmonary Medici nelly [place], [place] [address] (Wo rk) Scheduled Procedures Name Priority Associated Diagnoses Date/Time DEBRIDEMENT SKIN, SUBCU, MUSCLE, R great toe amp utation, wound LOWER EXTREMITY (WRVU 2.7) closure MODIFIER WOUND VAC R great toe amputation, wound closure documented as of this encounter Visit Diagnoses Diagnosis Pain - Primary Generalized pain documented in this encounter Care Teams Boot And Shoe Laborer Relationship Specialty Start Date End Date Eli Bergman MD PCP - General 11/21/11 04/20/13 [facility] [place] [address] documented as of this encounter
--- OUTSIDE RECORDS SUMMARY | 2021-11-30 08:27 | XMS_ITS | Encounter Summary ---
:1955 Author Organization [facility] [place] [address] Care Team Providers Name Role Phone Eli Bergman MD Primary Care Provider Reason for Visit Reason Onset Date Comments Medication Refill 08/24/2012 Encounter Details Date Type Department Care Team Description 08/24/2012 Refill Internal Medicine at [facility] Raiza Angelo MD Pain (Primary Dx) [facility] [place] [address] GENERAL INTERNAL [phone] MEDICINE [place], [place] [address] (Wo rk) Social History Tobacco [...] [facility] DR ORTHOPAEDIC SURG [place] [address] (Wo rk) 01/15/2022 Appointment Radiology Stiven Cervantes MD [facility] Pulmonary Medici ne [place], [place] [address] (Wo rk) Scheduled Procedures Name Priority Associated Diagnoses Date/Time DEBRIDEMENT SKIN, SUBCU, MUSCLE, R great toe amp utation, wound LOWER EXTREMITY (WRVU 2.7) closure MODIFIER WOUND VAC R great toe amputation, wound closure documented as of this encounter Visit Diagnoses Diagnosis Pain - Primary Generalized pain documented in this encounter Care Teams Car Ferrier Relationship Specialty Start Date End Date Eli Bergman MD PCP - General 11/21/11 04/20/13 [facility] GENERAL [place] [address] documented as of this encounter
--- OUTSIDE RECORDS SUMMARY | 2021-11-30 08:27 | XMS_ITS | Encounter Summary ---
:1955 Author Organization [facility] [place] [address] Care Team Providers Name Role Phone Eli Bergman MD Primary Care Provider Reason for Visit Reason Onset Date Comments Medication Refill 11/03/2012 Encounter Details Date Type Department Care Team Description 11/03/2012 Refill Internal Medicine at [facility] Vidhya Puckett RN Pain (Primary Dx) [place] [address] Social History Tobacco Use Types Packs/Day [...] [facility] ORTHOPAEDIC SURG [place], [place] [address] (Wo rk) 01/15/2022 Appointment Radiology Stiven Cervantes MD [facility] Pulmonary Medici nelly [place], [place] [address] (Wo rk) Scheduled Procedures Name Priority Associated Diagnoses Date/Time DEBRIDEMENT SKIN, SUBCU, MUSCLE, R great toe amp utation, wound LOWER EXTREMITY (WRVU 2.7) closure MODIFIER WOUND VAC R great toe amputation, wound closure documented as of this encounter Visit Diagnoses Diagnosis Pain - Primary Generalized pain documented in this encounter Care Teams Publishing Systems Analyst Relationship Specialty Start Date End Date Eli Bergman MD PCP - General 11/21/11 04/20/13 [facility] [place] [address] documented as of this encounter
--- OUTSIDE RECORDS SUMMARY | 2021-11-30 08:27 | XMS_ITS | Encounter Summary ---
:1955 Author Organization [facility] [address] Care Team Providers Name Role Phone Eli Bergman MD Primary Care Provider Encounter Details Date Type Department Care Team Description 11/23/2012 Telephone Internal Medicine [place] [facility] [place] [address] Social History Tobacco Use Types Packs/Day [...] Telephone Encounter - Nina Yates LPN - 11/23/2012 3:49 PM EDT Pt called and left message regarding [facility] [place] Called pharmacy and they had received the prescription. Call placed to Mr. Ramos left message. Cari Barclay RN documented in this encounter Plan of Treatment Upcoming Encounters Date Type Specialty Care Team Description 12/11/2021 Appointment Radiology 12/11/2021 Office Visit Orthopaedics Marion Tavera APRN [facility] ORTHOPAEDIC SURG [place], [place] [address] (Wo rk) 01/15/2022 Appointment Radiology Stiven Cervantes MD [facility] Pulmonary Medici [place], [place] [address] (Wo rk) Scheduled Procedures Name Priority Associated Diagnoses Date/Time DEBRIDEMENT SKIN, SUBCU, MUSCLE, R great toe amp utation, wound LOWER EXTREMITY (WRVU 2.7) closure MODIFIER WOUND VAC R great toe amputation, wound closure documented as of this encounter Visit Diagnoses Not on filedocumented in this encounter Care Teams Storage Battery Tester Relationship Specialty Start Date End Date Eli Bergman MD PCP - General 11/21/11 04/20/13 [facility] [place] [address] documented as of this encounter
--- OUTSIDE RECORDS SUMMARY | 2021-11-30 08:28 | XMS_ITS | Encounter Summary ---
:1955 Author Organization [facility] [place] [address] Care Team Providers Name Role Phone Eli Bergman MD Primary Care Provider Reason for Visit Reason Onset Date Comments Medication Refill 04/01/2012 Encounter Details Date Type Department Care Team Description 04/01/2012 Refill Internal Medicine at [facility] Dalia Antunez Pain (Primary Dx) [facility] [place] [address] Social History Tobacco Use Types Packs/Day [...] [facility] ORTHOPAEDIC SURG [place], [place] [address] (Wo rk) 01/15/2022 Appointment Radiology Stiven Cervantes MD [facility] Pulmonary Medici nelly [place], [place] [address] (Wo rk) Scheduled Procedures Name Priority Associated Diagnoses Date/Time DEBRIDEMENT SKIN, SUBCU, MUSCLE, R great toe amp utation, wound LOWER EXTREMITY (WRVU 2.7) closure MODIFIER WOUND VAC R great toe amputation, wound closure documented as of this encounter Visit Diagnoses Diagnosis Pain - Primary Generalized pain documented in this encounter Care Teams Hatchery Man Relationship Specialty Start Date End Date Eli Bergman MD PCP - General 11/21/11 04/20/13 [facility] GENERAL [place] [address] documented as of this encounter
--- OUTSIDE RECORDS SUMMARY | 2021-11-30 08:28 | XMS_ITS | Encounter Summary ---
:1955 Author Organization [facility] [place] [address] Care Team Providers Name Role Phone Eli Bergman MD Primary Care Provider Reason for Visit Reason Onset Date Comments Medication Refill 08/12/2012 Encounter Details Date Type Department Care Team Description 08/12/2012 Refill Internal Medicine at [facility] Vidhya Puckett RN Pain (Primary Dx) [facility] [place] [address] Social History Tobacco Use Types Packs/Day [...] APRN [facility] DR ORTHOPAEDIC SURG [place], [place] 0[address] (Wo rk) 01/15/2022 Appointment Radiology Stiven Cervantes MD [facility] Pulmonary Medici [place], [place] [address] (Wo rk) Scheduled Procedures Name Priority Associated Diagnoses Date/Time DEBRIDEMENT SKIN, SUBCU, MUSCLE, R great toe amp utation, wound LOWER EXTREMITY (WRVU 2.7) closure MODIFIER WOUND VAC R great toe amputation, wound closure documented as of this encounter Visit Diagnoses Diagnosis Pain - Primary Generalized pain documented in this encounter Care Teams Sow Farm Barn Technician Relationship Specialty Start Date End Date Eli Bergman MD PCP - General 11/21/11 04/20/13 [facility] [place] [address] documented as of this encounter
--- OUTSIDE RECORDS SUMMARY | 2021-11-30 08:28 | XMS_ITS | Encounter Summary ---
:1955 Author Organization [facility] [place] [address] Care Team Providers Name Role Phone Eli Bergman MD Primary Care Provider Reason for Visit Reason Onset Date Comments Medication Refill 05/26/2012 Encounter Details Date Type Department Care Team Description 05/26/2012 [facility]ill ZLEB 5D [facility] [place] [address] Social History Tobacco Use Types Packs/Day Years [...] APRN [facility] ORTHOPAEDIC SURG [place], [place] [address] (Wo rk) 01/15/2022 Appointment Radiology Stiven Cervantes MD [facility] Pulmonary Medici [place], [place] [address] (Wo rk) Scheduled Procedures Name Priority Associated Diagnoses Date/Time DEBRIDEMENT SKIN, SUBCU, MUSCLE, R great toe amp utation, wound LOWER EXTREMITY (WRVU 2.7) closure MODIFIER WOUND VAC R great toe amputation, wound closure documented as of this encounter Visit Diagnoses Not on filedocumented in this encounter Care Teams Oakes Machine Operator Relationship Specialty Start Date End Date Eli Bergman MD PCP - General 11/21/11 04/20/[address] [facility] GENERAL [place] [address] documented as of this encounter
--- OUTSIDE RECORDS SUMMARY | 2021-11-30 08:28 | XMS_ITS | Encounter Summary ---
:1955 [place] [address] Care Team Providers Name Role Phone Eli Bergman MD Primary Care Provider Reason for Visit Reason Onset Date Comments Medication Refill 01/21/2012 Encounter Details Date Type Department Care Team Description 01/21/2012 Refill Internal Medicine at [facility] Eli Bergman MD [facility] [place] [address] GENERAL INTERNAL MEDICINE [phone] [place], [place] [address] (Wo huey) Social History Tobacco Use Types Packs/Day Years [...] [facility] ORTHOPAEDIC SURG [place], [place] [address] (Wo rk) 01/15/2022 Appointment Radiology Stiven Cervantes MD [facility] Pulmonary Medici nelly [place], [place] [address] (Wo rk) Scheduled Procedures Name Priority Associated Diagnoses Date/Time DEBRIDEMENT SKIN, SUBCU, MUSCLE, R great toe amp utation, wound LOWER EXTREMITY (WRVU 2.7) closure MODIFIER WOUND VAC R great toe amputation, wound closure documented as of this encounter Visit Diagnoses Not on filedocumented in this encounter Care Teams Ear Muff Assembler Relationship Specialty Start Date End Date Eli Bergman MD PCP - General 11/21/11 04/20/13 [facility] GENERAL [place] [address] documented as of this encounter
--- OUTSIDE RECORDS SUMMARY | 2021-11-30 08:28 | XMS_ITS | Encounter Summary ---
:1955 Author Organization [facility] Address [facility] [place] [address] Care Team Providers Name Role Phone Eli Bergman MD Primary Care Provider Reason for Visit Reason Comments Establish Care Encounter Details Date Type Department Care Team Description 02/11/2012 Office Visit Internal Medicine at Christina Bergman MD Health care maintenance; [facility] Chronic pain [facility] [address] [place] GENERAL INTERNAL [place], [place] MEDICINE [id number] [place] [address] [phone] (Wo rk) Social History Tobacco Use Types [...] Sign Reading Time Taken Comments Blood Pressure 114/64 02/11/2012 9:23 AM EDT Pulse 75 02/11/2012 9:23 AM EDT Temperature 36.6 ??C (97.9 ??F) 02/11/2012 9:23 AM EDT Respiratory Rate 18 02/11/2012 9:23 AM EDT Oxygen Saturation - - Inhaled Oxygen Concentration - - Weight 96.6 kg (213 lb) 02/11/2012 9:23 AM EDT Height 174 cm (5' 8.5) 02/11/2012 9:23 AM EDT Body Mass Index 31.92 02/11/2012 9:23 AM EDT documented in this encounter Progress Notes Meli Lepe MD - 02/20/2012 4:31 PM EDT Addended by: MELI LEPE on: 02/20/2012 Modules accepted: Level of Service Maribel Hsu RN - 02/12/2012 5:32 PM EDT Asked by Dr Bergman to straight cath pt for U Drug A, as he is unable to void. Straight cathed using sterile technique without problems for 100 cc urine. Specimen sent to lab. Meli Lepe MD - 02/11/2012 10:44 AM EDT I have seen the patient and reviewed the resident's above history and I agree with the details as written. The assessment and plan were formulated in discussion with me and I agree with them as documented. Pertinent History: Transitioning care from previous resident PCP Chronic hip and back pain - h/o avascular necrosis s/p bilateral replacements, osteoporosis. On methadone for 11 years with improved function though incomplete pain control with recent increase in breakthrough pain. Also uses ibuprofen and acetaminophen prn. Reports possibly smoking marijuana at a constitution party this weekend H/O active hep C and cirrhosis, followed by GI; previous treatment with relapse Pertinent Exam: Filed Vitals: 02/11/12 0923 BP: 114/64 Pulse: 75 Temp: 36.6 ??C (97.9 ??F) TempSrc: Oral Resp: 18 Height: 174 cm (5' 8.5) Weight: 96.616 kg (213 lb) limited exam today Major issues addressed: Chronic pain Cirrhosis Plan: Continue methadone at current dose Urine tox screen today; anticipate there may be THC, will continue methadone at least until next visit if this is the case, need patient to be more forthcoming/open about his marijuana use to 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 male. HPI Mr. Raoms is a 56 yo male who presents for establishment of care/transition of care. The patient haschronic back pain secondary to osteoporosis, OA, and a history of avascular necrosis s/p bilateral hip replacements >12 years ago. The patient reports worsening low back pain over the past 1-2 months. He describes the pain as sharp and can reach 10/10 in severity. He reports that walking or standing on hard floors exacerbates the pain. Methadone brings the pain down to 4-5/10 in severity. He states methadone is not the best pain killer, but it saved my life. He has been taking methadone for 11 years. He also reports taking tylenol at night (usually 3 pills, unclear dose) prn and motrin every n ow and then (unable to quantify how often). The patient has difficulty sleeping secondary to his pain. He will usually sleep two hours at a time. After two hours, he will need to get up to stretch or walk around and then he will sleep in his recliner (alternating it with his bed). This sleep pattern has been a chronic issue for him. 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 The patient also has ADHD and MDD. He is followed by psychiatry and has an appointment to see them in March 2012. The patient has hepatitis C and cirrhosis for which he is being followed by GI. He is to see GI in three weeks. He denies alcohol use for the past two years. When a urine sample was requested from the patient for drug screening, he reports that he was at a constitution party over the weekend where people were smoking marijuana. He initially denies having smoked marijuana at the constitution party, but later reports possibly using the drug, although he is not positive. Patient vaguewhen asked further why he would not remember whether he used marijuana or not. Review of Systems Positive ROS are in bold Constitutional: fevers, chills, night sweats, dizziness, appetite loss, fatigue, weight loss/gain Eyes: changes in vision, double vision, visual loss, eye pain. ENT/mouth: nasal/sinus congestion, rhinorrhea, sore throat CV: chest pain, palpitations, orthopnea, light-headedness Resp: SOB, cough, sputum, CUNHA GI: abd pain, nausea, vomiting, constipation, dysphagia, odynophagia, indigestion : dysuria, urgency, frequency, difficulty initiating stream, nocturia Heme: hematuria, melena, BRBPR Derm: rashes, bruising, pruritis Musculoskeletal: myalgias, arthralgias, arthritis, back pain Neuro: headache, numbness, tingling, changes in sensation Psych: Anxious Objective: Physical Exam Vitals: T 36.6 BP 114/64 HR 75 RR 18 Wt 96.6kg Ht 174 BMI 31.92 Limited Exam Assessment and Plan: Mr. Ramos is a 56 yo male with a history of hepatitis C/cirrhosis, ADHD, and chronic back pain who presents for establishment of care/transition of care. I am concerned about the patient's vagueness regarding marijuana use. It was discussed with the patient that there needs to be honesty/trust in the doctor- patient relationship to achieve optimal treatment of his medical conditions. I suspect that the patient may likely test positive for marijuana. For now, I will prescribe him methadone for his pain; however, I will need to re-assess how I will proceed if the patient tests positive for marijuana in light of his hesitation to be more open. # Chronic pain -Continue current dose of methadone -Counseled patients on the adverse effects of NSAIDs in the setting of his liver disease; advised patient to not take NSAIDs -Advised patient to use tylenol 500-650mg prn for pain but to use no more than 2000mg of acetaminophen per day -Urine toxicology screening -Offered PT referral (patient declined) # Hepatitis C/Cirrhosis -Followed by GI (has an appointment 03/11/12) # ADHD/Anxiety/Depression -On Ritalin, diazepam, bupropion -Followed by psychiatry (has an appointment 03/31/2012). # Health maintenance -T-Dap -Pneumovax RTC in 3 months for follow-up documented in this encounter Plan of Treatment Upcoming Encounters Date Type Specialty Care Team Description 12/11/2021 Appointment Radiology 12/11/2021 Office Visit Orthopaedics Marion Tavera APRN [facility] ORTHOPAEDIC SURG [place], [place] [address] (Wo rk) 01/15/2022 Appointment Radiology Stiven Cervantes MD [facility] Pulmonary Medici nelly [place], [place] [address] (Wo rk) Scheduled Procedures Name Priority Associated Diagnoses Date/Time DEBRIDEMENT SKIN, SUBCU, MUSCLE, R great toe amp utation, wound LOWER EXTREMITY (WRVU 2.7) closure MODIFIER WOUND VAC R great toe amputation, wound closure documented as of this encounter Procedures Procedure Name Priority Date/Time Associated Comments Diagnosis METHADONE, URINE, Routine 02/11/2012 11:15 Result s for this CONFIRMATION AM EDT procedure are i n the results section. DRUG SCREEN WITH Routine 02/11/2012 11:15 Chronic pain Results for this CONFIRMATION, URINE AM EDT procedur e are in (SEND OUT) the results section. THC (MARIJUANA), Routine 02/11/2012 11:15 Results for this URINE, CONFIRMATION AM EDT procedur e are in the results section. BENZODIAZEPINE, URINE Routine 02/11/2012 11:15 Re sults for this CONFIRMATION AM EDT procedure are i n the results section. documented in this encounter Results BENZODIAZEPINE, QUANTITATIVE, URINE (02/11/2012 11:15 AM EDT) Component Value Ref Test Analysis Performed At [facility] Method Time Signature U Benzo Conf CERNER ? [place] ? Expected MILLENNIUM Test ?Result ? LO ??Units ??Values Drug of Abuse, Benzo Conf, U ??GC/MS ? Positive ?Confirmation - Benzodiazepine ??Lorazepam ? Negative ? ng/mL ?? Cutoff: <100 ??Nordiazepam ?? 668 ?ng/mL ??Cutoff: <100 ??Oxazepam ?3750 ? ng/ mL ??Cutoff: <100 ??Temazepam ? SEE COMMENTS ? ng/mL ??Cu toff: <100 Unable to report a level for this analyte due to unknown interference. ??OH-Ethyl- ? Negative ? ng/mL ?? Cutoff: <100 ?Flurazepam ??7-NH- ? Negative ? ng/mL ??Cutoff: <100 ?Clonazepam ??7-NH- ? Negative ? ng/mL ??Cutoff: <50 ?Flunitrazepam ??Alpha OH- ? Negative ? ng/mL ?? Cutoff: <100 ?Alprazolam ??Alpha-OH- ? Negative ? ng/mL ?? Cutoff: <100 ?Triazolam This report is intended for use in clinical monitoring and management of patients. It is not intended for use in employment-related drug testing. Test Performed by: [facility] [address] [address] Metallurgy Laboratory Technician: Berna Martino, Ph.D. Specimen Anatomical Collection Method Collection Time Receive d Time (Source) Location / / Volume Laterality Urine specimen 02/11/2012 11:15 2 1:07 (specimen) AM EDT PM EDT Resulting Agency Comment Spec In Lab Meli Lepe MD URINE ORDERABLES Performing Organization Address City/[facility]/ZIP [place] [address] CERNER MILLENNIUM METHADONE, URINE, CONFIRMATION (02/11/2012 11:15 AM EDT) [facility] Method Time Signature U Meth Conf CERNER ? [place] ? Expected MILLENNIUM Test ?Result ? LO ??Units ??Values Drug of Abuse, Methadone Conf, U ??GC/MS ? Positive ?Negative ?Confirmation - Methadone ??Methadone ? 6100 ? ng/mL ??Cutoff: <100 This report is intended for use in clinical monitoring and management of patients. It is not intended for use in employment-related drug testing. Test Performed by: [facility] [address] [address] Metallurgy Laboratory Technician: Berna Martino, Ph.D. Specimen Anatomical Collection Method Collection Time Receive d Time (Source) Location / / Volume Laterality Urine specimen 02/11/2012 11:15 2 1:07 (specimen) AM EDT PM EDT Resulting Agency Comment Spec In Lab Meli Lepe MD URINE ORDERABLES Performing Organization Address City/State/ZIP Code [place] [address] CERNER MILLENNIUM THC (MARIJUANA), URINE, CONFIRMATION (02/11/2012 11:15 AM EDT) [facility] gist Method Time Signature U THC Conf CERNER ? [place] ? Expected MILLENNIUM Test ?Result ? LO ??Units ??Values Drug of Abuse, THC Conf, U ??GC/MS ? Positive ?Confirmation - THC ??THC ? 45 ? ng/mL ??Cutoff:<3 ?Carboxylic Acid This report is intended for use in clinical monitoring and management of patients. It is not intended for use in employment-related drug testing. Test Performed by: [place] [address] Metallurgy Laboratory Technician: Berna Martino, Ph.D. Specimen Anatomical Collection Method Collection Time Receive d Time (Source) Location / / Volume Laterality Urine specimen 02/11/2012 11:15 2 1:07 (specimen) AM EDT PM EDT Resulting Agency Comment Spec In Lab Meli Lepe MD URINE ORDERABLES Performing Organization Address City/State/ZIP Code Phon e Number [place] [address] CERNER MILLENNIUM Drug Screen with Confirmation, Urine (02/11/2012 11:15 AM EDT) Component Value Ref Test Analysis Performed At [facility] Range Method Time Signature U BRITTNEE w/Conf CERNER ? HI ? Expected MILLENNIUM Test ?Result ? LO ??Units ??Values [facility] Drug Screen, U ??Amphetamines ??Negative ? ng/mL ??C utoff: 1000 ??MDMA ?Test not performed. ?ng/mL ??Cu toff: 500 ?(Ecstasy) ??Barbiturates ??Negative ? ng/mL ??C utoff: 200 ??Benzodiazepi ??Positive ? ng/mL ??C utoff: 200 ?rene ??Cocaine ? Negative ? ng/mL ? ?Cutoff: 300 ?Metabolite ??Methadone ? Positive ? ng/mL ?? Cutoff: 300 ??Opiates ? Negative ? ng/mL ? ?Cutoff: 300 ??Phencyclidin ??Negative ? ng/mL ??C utoff: 25 ?e ??Propoxyphene ??Negative ? ng/mL ??C utoff: 300 ??Tetrahydroca ??Positive ? ng/mL ??C utoff: 50 ?nnabinols ??Ethanol ? Negative ? mg/dL ? ?Cutoff: 10 ??Comment Specimen unusually concentrated. Results from this test are presumptive; for positive results refer to the corresponding drug confirmation for the definitive result. This report is intended for use in clinical monitoring and management of patients. It is not intended for use in employment-related drug testing. ??Confirmation ??Negative ?- Opiates ??Codeine ? Negative ? ng/mL ? ?<100 ??Hydrocodone ?? Negative ? ng/mL ??< 100 ??Hydromorphon ??Negative ? ng/mL ??< 100 ?e ??Morphine ?Negative ? ng/mL ? ?<100 ??Oxycodone ? Negative ? ng/mL ?? <100 ??Oxymorphone ?? Negative ? ng/mL ??< 100 This report is intended for use in clinical monitoring and management of patients. It is not intended for use in employment-related drug testing. Test Performed by: [place] [address] Metallurgy Laboratory Technician: Berna Martino, Ph.D. Specimen Anatomical Collection Method Collection Time Receive d Time (Source) Location / / Volume Laterality Urine specimen 02/11/2012 11:15 2 1:07 (specimen) AM EDT PM EDT Resulting Agency Comment Spec In Lab Meli Lepe MD URINE ORDERABLES Performing Organization Address City/State/ZIP [place] [address] [facility] documented in this encounter Visit Diagnoses Diagnosis Health care maintenance Unspecified general medical examination Chronic pain Other chronic pain documented in this encounter Care Teams Registered Medical Transcriptionist Relationship Specialty Start Date End Date Bergman, Eli, MD PCP - General 11/21/11 04/20/13 [facility] [place] [address] documented as of this encounter
--- OUTSIDE RECORDS SUMMARY | 2021-11-30 08:28 | XMS_ITS | Encounter Summary ---
:1955 Author Organization [facility] [place] [address] Care Team Providers Name Role Phone Vinicio Ferris MD Primary Care Provider Encounter Details Date Type Department Care Team Description 11/05/2011 Office Visit Psychiatry and Shivani Thornton MD Major depressive Behavioral Health at [facility] ana pradhan, single [facility] episode, unspecified [facility] PSYCHIATRY DE PT. (Primary Dx) [address] [phone] [address] (Work) [phone] Social History Tobacco Use Types Packs/Day Years Used Date Current Every Day Smoker Cigarettes 0.25 42 Smokeless Tobacco: Former User Alcohol Use Standard Drinks/Week Comments Not Asked 0 (1 standard drink = 0.6 oz pure alcoho l) Sex Assigned at Date Recorded Not on file documented as of this encounter Last Filed Vital Signs Vital Sign Reading Time Taken Comments Blood Pressure 137/82 11/05/2011 2:17 PM EDT Pulse - - Temperature - - Respiratory Rate - - Oxygen Saturation - - Inhaled Oxygen Concentration - - Weight 90.7 kg (200 lb) 11/05/2011 2:17 PM EDT Height 175.3 cm (5' 9) 11/05/2011 2:17 PM EDT Body Mass Index 29.53 11/05/2011 2:17 PM EDT documented in this encounter Progress Notes Shivani Thornton MD - 11/05/2011 2:35 PM EDT Individual Psychotherapy with EM Office Visit (CPT 27265 (30 min), 29574 (60 min)/KARLEY 5420) (* = required item) *Length of Service: 30 minutes *Chief Complaint: MDD-SE (296.20), ADHD, Chronic Pain, EtOH Dependence, Anxiety D/O NOS, h/o Opioid Dependence *Interval Hx: The only things he's got right now are things he can't do anything about -- daughter having problem with her marriage for the past few days, my leaving. No EtOH since last appointment. No desire to drink. *Therapeutic Intervention Used (e.g., insight-oriented, supportive, behavioral modification) and Patient's Response: [facility] plus Medication Management (chosen because this seems best approach to facilitate change). We discussed arrangements for follow-up. *Pertinent Med SE: none. *MSE: Appearance/Behavior: Casually dressed middle-aged WM walking with visible discomfort, sitting comfortably in chair. Good eye contact. Mood/Affect: Well-toned, smiling, laughing at times. Thoughts (including *Suicidal/Homicidal Thoughts/Plans): No SI/HI in past week. Other Pertinent Exam: *A (including Diagnosis): 56 y.o. male with MDD-SE (296.20), ADHD, Chronic Pain, EtOH Dependence, Anxiety D/O NOS, h/o Opioid Dependence. Ritalin perhaps helpful for mood. Doing well on current meds. Target Sx: depressed mood, poor self-image, anxiety/worry. Progress to Goal Achievement: Pt. feeling much better, with improved self-esteem. Outcome Monitoring Methods: patient's subjective reports, patient's mental status. P: 1) Medication Change(s) (Current meds continued if no med changes listed): Follow-Up Appt: Adult Psychiatry Clinic, no psychotherapist for now (pt. thinks a med check every 3 months will be sufficient -- if not, can be referred for therapy here) *Coordination of Care: Pt. requests that notes be sent to VINICIO Pang MD (PCP) (pt. understands that this will continue until/less s/he requests otherwise) (please excuse formatting irregularities due to the software) documented in this encounter Plan of Treatment Upcoming Encounters Date Type Specialty Care Team Description 12/11/2021 Appointment Radiology 12/11/2021 Office Visit Orthopaedics Marion Tavera APRN [facility] ORTHOPAEDIC SURG [place], [place] [address] (Wo rk) 01/15/2022 Appointment Radiology Stiven Cervantes MD [facility] Pulmonary Medici [place], [place] [address] (Wo rk) Scheduled Procedures Name Priority Associated Diagnoses Date/Time DEBRIDEMENT SKIN, SUBCU, MUSCLE, R great toe amp utation, wound LOWER EXTREMITY (WRVU 2.7) closure MODIFIER WOUND VAC R great toe amputation, wound closure documented as of this encounter Visit Diagnoses Diagnosis Major depressive disorder, single episod e, unspecified - Primary documented in this encounter Care Teams Rn Acute Relationship Specialty Start Date End Date Vinicio Ferris MD PCP - General 10/18/10 11/20/11 [facility] GENER[place] [address] documented as of this encounter
--- OUTSIDE RECORDS SUMMARY | 2021-11-30 08:28 | XMS_ITS | Encounter Summary ---
:1955 Author Organization [facility] [place] [address] Care Team Providers Name Role Phone Eli Bergman MD Primary Care Provider Reason for Visit Reason Onset Date Comments Medication Refill 03/31/2012 Encounter Details Date Type Department Care Team Description 03/31/2012 Refill ZLEB 5D Meli [facility] [place] [address] Social History Tobacco Use Types Packs/Day Years Used Date Current Every Day Smoker Cigarettes 0.25 42 Smokeless Tobacco: Former User Alcohol Use Standard Drinks/Week Comments Not Asked 0 (1 standard drink = 0.6 oz pure alcoho l) Sex Assigned at Date Recorded Not on file documented as of this encounter Miscellaneous Notes Telephone Encounter - Miriam Jones - 04/20/2012 11:08 AM EST Spoke with patient regarding his med refill request and reason for refusal. Dr. Sen Gomes states that the patient has No Showed or cancelled for his past few appointments and will not continue to prescribe controlled substances. Connie Mr. Ramos returns Dr. Gomes's call, he will then determine whether or not he will continue Prescribing them. Mr. Ramos stated that the best times to reach him would be today, this morning mid Late morning and or later this afternoon at approximately pm . Mahin states that he's not as well without his meds, today having a hard time with the ability to read, write and get motivated. documented in this encounter Plan of Treatment Upcoming Encounters Date Type Specialty Care Team Description 12/11/2021 Appointment Radiology 12/11/2021 Office Visit Orthopaedics Marion Tavera APRN [facility] ORTHOPAEDIC SURG [place], [place] [address] (Wo rk) 01/15/2022 Appointment Radiology Stiven Cervantes MD [facility] Pulmonary Medici [place], [place] [address] (Wo rk) Scheduled Procedures Name Priority Associated Diagnoses Date/Time DEBRIDEMENT SKIN, SUBCU, MUSCLE, R great toe amp utation, wound LOWER EXTREMITY (WRVU 2.7) closure MODIFIER WOUND VAC R great toe amputation, wound closure documented as of this encounter Visit Diagnoses Not on filedocumented in this encounter Care Teams Title I Coordinator Relationship Specialty Start Date End Date Eli Bergman MD PCP - General 11/21/11 04/20/13 [facility] GENERAL [place] [address] documented as of this encounter
--- OUTSIDE RECORDS SUMMARY | 2021-11-30 08:28 | XMS_ITS | Encounter Summary ---
:1955 Author Organization [facility] [place] [address] Care Team Providers Name Role Phone Vinicio Ferris MD Primary Care Provider Reason for Visit Reason Onset Date Comments Medication Refill 11/15/2011 Encounter Details Date Type Department Care Team Description 11/15/2011 Refill Internal Medicine at [facility] Dalia Antunez Pain (Primary Dx) [facility] [place] [address] Social History Tobacco Use Types Packs/Day [...] APRN [facility] ORTHOPAEDIC SURG [place], [place] [address] (Wo rk) 01/15/2022 Appointment Radiology Stiven Cervantes MD [facility] Pulmonary Medici nelly [place], [place] [address] (Wo rk) Scheduled Procedures Name Priority Associated Diagnoses Date/Time DEBRIDEMENT SKIN, SUBCU, MUSCLE, R great toe amp utation, wound LOWER EXTREMITY (WRVU 2.7) closure MODIFIER WOUND VAC R great toe amputation, wound closure documented as of this encounter Visit Diagnoses Diagnosis Pain - Primary Generalized pain documented in this encounter Care Teams Pre K Teacher Relationship Specialty Start Date End Date Vinicio Ferris MD PCP - General 10/18/10 11/20/11 [facility] GENERAL [place] [address] documented as of this encounter
--- OUTSIDE RECORDS SUMMARY | 2021-11-30 08:28 | XMS_ITS | Encounter Summary ---
:1955 Author Organization [facility] [place] [address] Care Team Providers Name Role Phone Vinicio Ferris MD Primary Care Provider Encounter Details Date Type Department Care Team Description 10/09/2011 Telephone [facility]enterology at [facility] [place] [address] Social History Tobacco Use Types Packs/Day Years Used Date Current Some Day Smoker Cigarettes 0.25 42 Smokeless Tobacco: Former User Alcohol Use Standard Drinks/Week Comments Not Asked 0 (1 standard drink = 0.6 oz pure alcoho l) Sex Assigned at Date Recorded Not on file documented as of this encounter Miscellaneous Notes Telephone Encounter - uRma Botello RN - 10/09/2011 3:08 PM EDT Call from patient with questions regarding Hep C treatment and the plan going forward. He feels muchbetter now that he is off treatment, though he feels depressed. He is being followed by psychiatry for this and feels it is helpful. He will have his U\S, and follow up appointment with Jack Dowling NP to further discuss. Patient agrees with this plan. documented in this encounter Plan of Treatment Upcoming Encounters Date Type Specialty Care Team Description 12/11/2021 Appointment Radiology 12/11/2021 Office Visit Orthopaedics Marion Tavera , [facility] DR ORTHOPAEDIC SURG [place], [place] [address] (Wo rk) 01/15/2022 Appointment Radiology Stiven Cervantes MD [facility] Pulmonary Medici ne [place], [place] [address] (Wo rk) Scheduled Procedures Name Priority Associated Diagnoses Date/Time DEBRIDEMENT SKIN, SUBCU, MUSCLE, R great toe amp utation, wound LOWER EXTREMITY (WRVU 2.7) closure MODIFIER WOUND VAC R great toe amputation, wound closure documented as of this encounter Visit Diagnoses Not on filedocumented in this encounter Care Teams Leadership Program Intern Relationship Specialty Start Date End Date Vinicio Ferris MD PCP - General 10/18/10 11/20/11 [facility] GENERAL [place] [address] documented as of this encounter
--- OUTSIDE RECORDS SUMMARY | 2021-11-30 08:28 | XMS_ITS | Encounter Summary ---
:1955 Author Organization [facility] [place] [address] Care Team Providers Name Role Phone Eli Bergman MD Primary Care Provider Reason for Visit Reason Onset Date Comments Medication Refill 05/27/2012 Encounter Details Date Type Department Care Team Description 05/27/2012 Refill Psychiatry and Behavioral Sen Gomes MD [facility] Jenni hammer [place] [address] [place] [address] [phone] (Wo rk) Social History Tobacco Use Types [...] [facility] ORTHOPAEDIC SURG [place], [place] [address] (Wo rk) 01/15/2022 Appointment Radiology Stiven Cervantes MD [facility] Pulmonary Medici nelly [place], [place] [address] (Wo rk) Scheduled Procedures Name Priority Associated Diagnoses Date/Time DEBRIDEMENT SKIN, SUBCU, MUSCLE, R great toe amp utation, wound LOWER EXTREMITY (WRVU 2.7) closure MODIFIER WOUND VAC R great toe amputation, wound closure documented as of this encounter Visit Diagnoses Not on filedocumented in this encounter Care Teams Silk Conditioner Relationship Specialty Start Date End Date Eli Bergman MD PCP - General 11/21/11 04/20/13 [facility] [place] [address] documented as of this encounter
--- OUTSIDE RECORDS SUMMARY | 2021-11-30 08:28 | XMS_ITS | Encounter Summary ---
:1955 Author Organization [facility] [place] [address] Care Team Providers Name Role Phone Eli Bergman MD Primary Care Provider Reason for Visit Reason Onset Date Comments Medication Refill 05/04/2012 Encounter Details Date Type Department Care Team Description 05/04/2012 Refill Internal Medicine at [facility] Dalia Antunez Pain (Primary Dx) [facility] [place] [address] Social History Tobacco Use Types Packs/Day [...] Visit Orthopaedics Marion Tavera APRN [facility] ORTHOPAEDIC SURG [place], [place] [address] (Wo rk) 01/15/2022 Appointment Radiology Stiven Cervantes MD [facility] Pulmonary Medici nelly [place], [place] [address] (Wo rk) Scheduled Procedures Name Priority Associated Diagnoses Date/Time DEBRIDEMENT SKIN, SUBCU, MUSCLE, R great toe amp utation, wound LOWER EXTREMITY (WRVU 2.7) closure MODIFIER WOUND VAC R great toe amputation, wound closure documented as of this encounter Visit Diagnoses Diagnosis Pain - Primary Generalized pain documented in this encounter Care Teams Diesel Engine Engineer Relationship Specialty Start Date End Date Eli Bergman MD PCP - General 11/21/11 04/20/13 [facility] GENERAL [place] [address] documented as of this encounter
--- OUTSIDE RECORDS SUMMARY | 2021-11-30 08:28 | XMS_ITS | Encounter Summary ---
:1955 Author Organization [facility] [place] [address] Care Team Providers Name Role Phone Vinicio Ferris MD Primary Care Provider Reason for Visit Reason Onset Date Comments Medication Refill 10/18/2011 Encounter Details Date Type Department Care Team Description 10/18/2011 Refill Internal Medicine at [facility] Dalia Antunez Pain (Primary Dx) [facility] [place] [address] Social History Tobacco Use Types Packs/Day [...] APRN [facility] ORTHOPAEDIC SURG [place], [place] [address] (Wo rk) 01/15/2022 Appointment Radiology Stiven Cervantes MD [facility] Pulmonary Medici nelly [place], [place] [address] (Wo rk) Scheduled Procedures Name Priority Associated Diagnoses Date/Time DEBRIDEMENT SKIN, SUBCU, MUSCLE, R great toe amp utation, wound LOWER EXTREMITY (WRVU 2.7) closure MODIFIER WOUND VAC R great toe amputation, wound closure documented as of this encounter Visit Diagnoses Diagnosis Pain - Primary Generalized pain documented in this encounter Care Teams Cigarette Tipper Relationship Specialty Start Date End Date Vinicio Ferris MD PCP - General 10/18/10 11/20/11 [facility] GENERAL [place] [address] documented as of this encounter
--- OUTSIDE RECORDS SUMMARY | 2021-11-30 08:28 | XMS_ITS | Encounter Summary ---
:1955 Author Organization [facility] [place] [address] Care Team Providers Name Role Phone Eli Bergman MD Primary Care Provider Reason for Visit Reason Onset Date Comments Medication Refill 05/18/2012 Encounter Details Date Type Department Care Team Description 05/18/2012 Refill Internal Medicine at [facility] Dalia Antunez Pain (Primary Dx) [facility] [place] [address] Social History Tobacco Use Types Packs/Day [...] [facility] ORTHOPAEDIC SURG [place], [place] [address] (Wo rk) 01/15/2022 Appointment Radiology Stiven Cervantes MD [facility] Pulmonary Medici nelly [place], [place] [address] (Wo rk) Scheduled Procedures Name Priority Associated Diagnoses Date/Time DEBRIDEMENT SKIN, SUBCU, MUSCLE, R great toe amp utation, wound LOWER EXTREMITY (WRVU 2.7) closure MODIFIER WOUND VAC R great toe amputation, wound closure documented as of this encounter Visit Diagnoses Diagnosis Pain - Primary Generalized pain documented in this encounter Care Teams Dry Cleaning Supervisor Relationship Specialty Start Date End Date Eli Bergman MD PCP - General 11/21/11 04/20/13 [facility] GENER[place] [address] documented as of this encounter
--- OUTSIDE RECORDS SUMMARY | 2021-11-30 08:28 | XMS_ITS | Encounter Summary ---
:1955 Author Organization [facility] [place] [address] Care Team Providers Name Role Phone Vinicio Ferris MD Primary Care Provider Encounter Details Date Type Department Care Team Description 10/08/2011 Office Visit Psychiatry and Shivani Thornton MD Major depressive Behavioral Health at [facility] ana pradhan, single [facility] alice, unspecified [facility] PSYCHIATRY DE PT. (Primary Dx) [address] [phone] [phone] (Work) [phone] Social History Tobacco Use Types Packs/Day Years Used Date Current Some Day Smoker Cigarettes 0.25 42 Smokeless Tobacco: Former User Alcohol Use Standard Drinks/Week Comments Not Asked 0 (1 standard drink = 0.6 oz pure alcoho l) Sex Assigned at Date Recorded Not on file documented as of this encounter Last Filed Vital Signs Vital Sign Reading Time Taken Comments Blood Pressure 142/83 10/08/2011 1:20 PM EDT Pulse - - Temperature - - Respiratory Rate - - Oxygen Saturation - - Inhaled Oxygen Concentration - - Weight 90.7 kg (200 lb) 10/08/2011 1:20 PM EDT Height 175.3 cm (5' 9) 10/08/2011 1:20 PM EDT Body Mass Index 29.53 10/08/2011 1:20 PM EDT documented in this encounter Patient Instructions Patient InstructionsShivani Thornton MD - 10/08/2011 1:28 PM EDT Perhaps ask pharmacy for methadone from [facility] or [facility]. documented in this encounter Progress Notes Shivani Thornton MD - 10/08/2011 1:28 PM EDT Individual Psychotherapy with EM Office Visit (CPT 40814 (30 min), 74035 (60 min)/KARLEY 5420) (* = required item) *Length of Service: 60 minutes *Chief Complaint: MDD-SE *Interval Hx: Got a different formulation of methadone about 2 weeks ago, doesn't work as well. Pt. called pharmacy. We discussed what pt. could do, perhaps ask pharmacy for methadone from [place] or [facility] Has been wondering what's going to happen with change in psychiatrist. We discussed finding another therapist. suggested he ask about a med that would help him not get wound up so quickly, e.g, all the grandchildren at once (gets overwhelmed, gets irritable). Happens every day. maybe, later says last time he remembers was 9-10 days ago. Not sure if diazepam helps with this. Says Xanax helped with this in the past. No EtOH since last appointment. *Therapeutic Intervention Used (e.g., insight-oriented, supportive, behavioral modification) and Patient's Response: [place] Psychotherapy plus Medication Management (chosen because this seems best approach to facilitate change). We discussed possible ways to handle conflict between grandchildren, e.g., don't do anything, let handle it. Possible ways to engage with grandchildren more. *Pertinent Med SE: none. *MSE: Appearance/Behavior: Casually dressed middle-aged WM sitting comfortably in chair, shoulders with some tension. Mood/Affect: Well-toned, well-modulated. Some laughs, smiles. Later looks more pensive after talkingabout his father. Thoughts (including *Suicidal/Homicidal Thoughts/Plans): No SI/HI in past week. Other Pertinent Exam: *A (including Diagnosis): 56 y.o. male with MDD-SE (296.20), ADHD, Chronic Pain, EtOH Dependence, Anxiety D/O NOS, h/o Opioid Dependence. Ritalin perhaps helpful for mood. Target Sx: depressed mood, poor self-image, anxiety/worry. Progress to Goal Achievement: Pt. feeling much better, with improved self-esteem. Outcome Monitoring Methods: patient's subjective reports, patient's mental status. P: 1) Medication Change(s) (Current meds continued if no med changes listed): I told pt. I preferrednot Rx Xanax. I offered SSRI/SNRI, BuSpar, hydroxyzine. Pt. preferred not, will try to be more regular with his diazepam. Follow-Up Appt: 1 mo., [facility] January; I will contact [facility] about possibly seeing pt. *Coordination of Care: Pt. requests that notes be sent to VINICIO Pang MD (PCP) (pt. understands that this will continue until/less s/he requests otherwise) documented in this encounter Plan of Treatment Upcoming Encounters Date Type Specialty Care Team Description 12/11/2021 Appointment Radiology 12/11/2021 Office Visit Orthopaedics Marion Tavera APRN [facility] ORTHOPAEDIC SURG [place], [place] [address] (Wo rk) 01/15/2022 Appointment Radiology Stiven Cervantes MD [facility] Pulmonary Medici [place], [place] [address] (Wo rk) Scheduled Procedures Name Priority Associated Diagnoses Date/Time DEBRIDEMENT SKIN, SUBCU, MUSCLE, R great toe amp utation, wound LOWER EXTREMITY (WRVU 2.7) closure MODIFIER WOUND VAC R great toe amputation, wound closure documented as of this encounter Visit Diagnoses Diagnosis Major depressive disorder, single episod e, unspecified - Primary documented in this encounter Care Teams Lathe Spotter Relationship Specialty Start Date End Date Vinicio Ferris MD PCP - General 10/18/10 11/20/11 [facility] [place] [address] documented as of this encounter
--- OUTSIDE RECORDS SUMMARY | 2021-11-30 08:28 | XMS_ITS | Encounter Summary ---
:1955 Author Organization [facility] [place] [address] Care Team Providers Name Role Phone Eli Bergman MD Primary Care Provider Reason for Visit Reason Onset Date Comments Medication Refill 02/10/2012 Encounter Details Date Type Department Care Team Description 02/10/2012 Refill Internal Medicine at [facility] Dalia Antunez Pain (Primary Dx) [facility] [place] [address] Social History Tobacco Use Types Packs/Day [...] APRN [facility] ORTHOPAEDIC SURG [place], [place] [address] (Wo rk) 01/15/2022 Appointment Radiology Stiven Cervantes MD [facility] Pulmonary Medici [place]le[place], [place] [address] (Wo rk) Scheduled Procedures Name Priority Associated Diagnoses Date/Time DEBRIDEMENT SKIN, SUBCU, MUSCLE, R great toe amp utation, wound LOWER EXTREMITY (WRVU 2.7) closure MODIFIER WOUND VAC R great toe amputation, wound closure documented as of this encounter Visit Diagnoses Diagnosis Pain - Primary Generalized pain documented in this encounter Care Teams Marketing Support Manager Relationship Specialty Start Date End Date Eli Bergman MD PCP - General 11/21/11 04/20/13 [facility] GENERAL INTERNAL [place] [address] documented as of this encounter
--- OUTSIDE RECORDS SUMMARY | 2021-11-30 08:28 | XMS_ITS | Encounter Summary ---
:1955 Author Organization [facility] [place] [address] Care Team Providers Name Role Phone Eli Bergman MD Primary Care Provider Reason for Visit Reason Onset Date Comments Medication Refill 08/10/2012 Encounter Details Date Type Department Care Team Description 08/10/2012 Refill Internal Medicine at [facility] Vidhya Puckett RN Pain ([facility] Dx[facility] [place] [place] [address] Social History Tobacco Use Types Packs/Day [...] [facility] DR ORTHOPAEDIC SURG [place], [place] [address] (Wo rk) 01/15/2022 Appointment Radiology Stiven Cervantes MD [facility] Pulmonary Medici [place], [place] [address] (Wo rk) Scheduled Procedures Name Priority Associated Diagnoses Date/Time DEBRIDEMENT SKIN, SUBCU, MUSCLE, R great toe amp utation, wound LOWER EXTREMITY (WRVU 2.7) closure MODIFIER WOUND VAC R great toe amputation, wound closure documented as of this encounter Visit Diagnoses Diagnosis Pain - Primary Generalized pain documented in this encounter Care Teams Vibrating Screen Operator Relationship Specialty Start Date End Date Eli Bergman MD PCP - General 11/21/11 04/20/13 [facility] GENERAL [place] [address] documented as of this encounter
--- OUTSIDE RECORDS SUMMARY | 2021-11-30 08:28 | XMS_ITS | Encounter Summary ---
:1955 Author Organization [facility] [place] [address] Care Team Providers Name Role Phone Eli Bergman MD Primary Care Provider Encounter Details Date Type Department Care Team Description 08/10/2012 Orders Only Internal Medicine at [facility] Farhana Renteria risk medication [facility] RN use (Primary Dx) [place] [address] Social History Tobacco Use Types Packs/Day [...] APRN [facility] ORTHOPAEDIC SURG [place], [place] [address] (Wo rk) 01/15/2022 Appointment Radiology Stiven Cervantes MD [facility] Pulmonary Medici nelly [place], [place] [address] (Wo rk) Scheduled Procedures Name Priority Associated Diagnoses Date/Time DEBRIDEMENT SKIN, SUBCU, MUSCLE, R great toe amp utation, wound LOWER EXTREMITY (WRVU 2.7) closure MODIFIER WOUND VAC R great toe amputation, wound closure documented as of this encounter Visit Diagnoses Diagnosis High risk medication use - Primary Encounter for long-term (current) use of other medications documented in this encounter Care Teams Field Underwriter Relationship Specialty Start Date End Date Eli Bergman MD PCP - General 11/21/11 04/20/13 [facility] GENERAL [place] [address] documented as of this encounter
--- OUTSIDE RECORDS SUMMARY | 2021-11-30 08:28 | XMS_ITS | Encounter Summary ---
:1955 Author Organization [facility] [place] [address] Care Team Providers Name Role Phone Eli Bergman MD Primary Care Provider Reason for Visit Reason Onset Date Comments Medication Refill 03/09/2012 Encounter Details Date Type Department Care Team Description 03/09/2012 Refill Internal Medicine at [facility] Dalia Antunez Pain (Primary Dx) [facility] [place] [address] Social History Tobacco Use Types Packs/Day [...] [facility] ORTHOPAEDIC SURG [place], [place] [address] (Wo rk) 01/15/2022 Appointment Radiology Stiven Cervantes MD [facility] Pulmonary Medici nelly [place], [place] [address] (Wo rk) Scheduled Procedures Name Priority Associated Diagnoses Date/Time DEBRIDEMENT SKIN, SUBCU, MUSCLE, R great toe amp utation, wound LOWER EXTREMITY (WRVU 2.7) closure MODIFIER WOUND VAC R great toe amputation, wound closure documented as of this encounter Visit Diagnoses Diagnosis Pain - Primary Generalized pain documented in this encounter Care Teams Spanish Literature Professor Relationship Specialty Start Date End Date Eli Bergman MD PCP - General 11/21/11 04/20/13 [facility] GENERAL [place] [address] documented as of this encounter
--- OUTSIDE RECORDS SUMMARY | 2021-11-30 08:28 | XMS_ITS | Encounter Summary ---
:1955 Author Organization [facility] [place] [address] Care Team Providers Name Role Phone Eli Bergman MD Primary Care Provider Reason for Visit Reason Onset Date Comments Medication Refill 04/27/2012 Encounter Details Date Type Department Care Team Description 04/27/2012 Refill Internal Medicine at [facility] Dalia Antunez Pain (Primary Dx) [facility] [place] [address] Social History Tobacco Use Types Packs/Day [...] Orthopaedics [place] Tavera APRN [facility] ORTHOPAEDIC SURG [place], [place] [address] (Wo rk) 01/15/2022 Appointment Radiology Stiven Cervantes MD [facility] Pulmonary Medici nelly [place], [place] [address] (Wo rk) Scheduled Procedures Name Priority Associated Diagnoses Date/Time DEBRIDEMENT SKIN, SUBCU, MUSCLE, R great toe amp utation, wound LOWER EXTREMITY (WRVU 2.7) closure MODIFIER WOUND VAC R great toe amputation, wound closure documented as of this encounter Visit Diagnoses Diagnosis Pain - Primary Generalized pain documented in this encounter Care Teams Creative Project Manager Relationship Specialty Start Date End Date Eli Bergman MD PCP - General 11/21/11 04/20/13 [facility] GENERAL [place] [address] documented as of this encounter
--- OUTSIDE RECORDS SUMMARY | 2021-11-30 08:28 | XMS_ITS | Encounter Summary ---
:1955 Author Organization [facility] [place] [address] Care Team Providers Name Role Phone Eli Bergman MD Primary Care Provider Reason for Visit Reason Onset Date Comments Medication Refill 01/07/2012 Encounter Details Date Type Department Care Team Description 01/07/2012 Refill Internal Medicine at [facility] Dalia Antunez Pain (Primary Dx) [facility] [place] [address] Social History Tobacco Use Types Packs/Day [...] Marion Tavera APRN [facility] ORTHOPAEDIC SURG [place], [place] 0[address] (Wo rk) 01/15/2022 Appointment Radiology Stiven Cervantes MD [facility] Pulmonary Medici nelly [place], [place] [address] (Wo rk) Scheduled Procedures Name Priority Associated Diagnoses Date/Time DEBRIDEMENT SKIN, SUBCU, MUSCLE, R great toe amp utation, wound LOWER EXTREMITY (WRVU 2.7) closure MODIFIER WOUND VAC R great toe amputation, wound closure documented as of this encounter Visit Diagnoses Diagnosis Pain - Primary Generalized pain documented in this encounter Care Teams Terrazzo Worker Relationship Specialty Start Date End Date Eli Bergman MD PCP - General 11/21/11 04/20/13 [facility] GENERAL [place] [address] documented as of this encounter
--- OUTSIDE RECORDS SUMMARY | 2021-11-30 08:28 | XMS_ITS | Encounter Summary ---
:1955 Author Organization [place] [address] Care Team Providers Name Role Phone Eli Roca MD Primary Care Provider Encounter Details Date Type Department Care Team Description 12/06/2011 Office Visit Psychiatry and Shivani Thornton MD Major depressive Behavioral Health at [facility] ana pradhan, single [facility] episode, unspecified [facility] PSYCHIATRY DE PT. (Primary Dx) [address] [phone] (Work) [phone] Social History Tobacco Use Types Packs/Day Years Used Date Current Every Day Smoker Cigarettes 0.25 42 Smokeless Tobacco: Former User Alcohol Use Standard Drinks/Week Comments Not Asked 0 (1 standard drink = 0.6 oz pure alcoho l) Sex Assigned at Date Recorded Not on file documented as of this encounter Last Filed Vital Signs Vital Sign Reading Time Taken Comments Blood Pressure 131/80 12/06/2011 1:04 PM EDT Pulse - - Temperature - - Respiratory Rate - - Oxygen Saturation - - Inhaled Oxygen Concentration - - Weight 90.7 kg (200 lb) 12/06/2011 1:04 PM EDT Height 175.3 cm (5' 9) 12/06/2011 1:04 PM EDT Body Mass Index 29.53 12/06/2011 1:04 PM EDT documented in this encounter Progress Notes Shivani Thornton MD - 12/06/2011 1:20 PM EDT Individual Psychotherapy with EM Office Visit (CPT 91855 (30 min), 76359 (60 min)/KARLEY 5420) (* = required item) Please excuse formatting irregularities due to the software *Length of Service: 60 minutes *Chief Complaint: MDD-SE (296.20), ADHD, Chronic Pain, EtOH Dependence, Anxiety D/O NOS, h/o Opioid Dependence. *Interval Hx: I can't complain really. Daughter still having marital problems. Pt. trying to help her figure out where she can live. Had a hard time getting out the door this a.m. More tired than anything. Worrying about what's goingon with his daughter, would like a break. Pt. has had urges to drink, but has not. Notices that when the thought comes, it goes just as quick. *Therapeutic Intervention Used (e.g., insight-oriented, supportive, behavioral modification) and Patient's Response: [place] [facility] plus Medication Management (chosen because this seems best approach to facilitate change). We discussed focusing on living in the today. *Pertinent Med SE: none. *MSE: Appearance/Behavior: Pleasant middle-aged WM sitting forward in chair, elbows on thighs. Good eye contact. Mood/Affect: Well-toned, well-modulated, smiling. Thoughts (including *Suicidal/Homicidal Thoughts/Plans): No SI/HI in past week. Other Pertinent Exam: *A (including Diagnosis): 56 y.o. male with MDD-SE (296.20), ADHD, Chronic Pain, EtOH Dependence, Anxiety D/O NOS, h/o Opioid Dependence. Ritalin perhaps helpful for mood. Doing well on current meds. Has faced a lot of adversity in his life, overall has handled it well, I think. Target Sx: depressed mood, poor self-image, anxiety/worry. Progress to Goal Achievement: Pt. feeling much better, with improved self-esteem. Outcome Monitoring Methods: patient's subjective reports, patient's mental status. P: 1) Medication Change(s) (Current meds continued if no med changes listed): Follow-Up Appt: Sen Gomes 01/13, no psychotherapist for now (pt. thinks a med check every 3 months will be sufficient -- if not, can be referred for therapy here) *Coordination of Care: Pt. requests that notes be sent to ELI ROCA MD (PCP) (pt. understands that this will continue until/less s/he requests otherwise) documented in this encounter Plan of Treatment Upcoming Encounters Date Type Specialty Care Team Description 12/11/2021 Appointment Radiology 12/11/2021 Office Visit Orthopaedics Marion Tavera APRN [facility] DR ORTHOPAEDIC SURG [place], [place] [address] (Wo rk) 01/15/2022 Appointment Radiology Stiven Cervantes MD [facility] Pulmonary Medici [place], [place] [address] (Wo rk) Scheduled Procedures Name Priority Associated Diagnoses Date/Time DEBRIDEMENT SKIN, SUBCU, MUSCLE, R great toe amp utation, wound LOWER EXTREMITY (WRVU 2.7) closure MODIFIER WOUND VAC R great toe amputation, wound closure documented as of this encounter Visit Diagnoses Diagnosis Major depressive disorder, single episod e, unspecified - Primary documented in this encounter Care Teams Cardiology Coordinator Relationship Specialty Start Date End Date lEi Roca MD PCP - General 11/21/11 04/20/13 [facility] GENERAL [place] [address] documented as of this encounter
--- OUTSIDE RECORDS SUMMARY | 2021-11-30 08:28 | XMS_ITS | Encounter Summary ---
:1955 [place] [address] Care Team Providers Name Role Phone Eli Bergman MD Primary Care Provider Reason for Visit Reason Onset Date Comments Medication Refill 02/27/2012 Encounter Details Date Type Department Care Team Description 02/27/2012 Refill Internal Medicine at [facility] Eli Bergman MD [facility] [place] [address] GENERAL INTERNAL MEDICINE [phone] [place], [place] [address] (Wo huey) Social History Tobacco [...] [facility] ORTHOPAEDIC SURG [place], [place] [address] (Wo rk) 01/15/2022 Appointment Radiology Stiven Cervantes MD [facility] Pulmonary Medici nelly [place], [place] [address] (Wo rk) Scheduled Procedures Name Priority Associated Diagnoses Date/Time DEBRIDEMENT SKIN, SUBCU, MUSCLE, R great toe amp utation, wound LOWER EXTREMITY (WRVU 2.7) closure MODIFIER WOUND VAC R great toe amputation, wound closure documented as of this encounter Visit Diagnoses Not on filedocumented in this encounter Care Teams Ball Assembler Relationship Specialty Start Date End Date Eli Bergman MD PCP - General 11/21/11 04/20/13 [facility] GENER[place] [address] documented as of this encounter
--- OUTSIDE RECORDS SUMMARY | 2021-11-30 08:28 | XMS_ITS | Encounter Summary ---
:1955 Author Organization [facility] [address] Care Team Providers Name Role Phone Eli Bergman MD Primary Care Provider Encounter Details Date Type Department Care Team Description 10/03/2011 Orders Only Orthopaedics at [facility] Sheila-Marker, Status post hip [facility] [place] [address] ORTHOPAEDIC SURGERY [place], [place] [address] Social History Tobacco Use Types [...] Tavera APRN [facility] ER ORTHOPAEDIC SURG [place], [place] [address] (Wo rk) 01/15/2022 Appointment Radiology Stiven Cervantes MD [facility] Pulmonary Medici nelly [place], [place] 0[address] (Wo rk) Scheduled Procedures Name Priority Associated Diagnoses Date/Time DEBRIDEMENT SKIN, SUBCU, MUSCLE, R great toe amp utation, wound LOWER EXTREMITY (WRVU 2.7) closure MODIFIER WOUND VAC R great toe amputation, wound closure documented as of this encounter Visit Diagnoses Diagnosis Status post hip replacement Hip joint replacement by other means documented in this encounter Care Teams Graphite Grinder Relationship Specialty Start Date End Date Eli Bergman MD PCP - General 11/21/11 04/20/13 [facility] GENER[place] [address] documented as of this encounter
--- OUTSIDE RECORDS SUMMARY | 2021-11-30 08:28 | XMS_ITS | Encounter Summary ---
:1955 Author Organization [facility] [place] [address] Care Team Providers Name Role Phone Eli Bergman MD Primary Care Provider Reason for Visit Reason Onset Date Comments Medication Refill 03/03/2012 Encounter Details Date Type Department Care Team Description 03/03/2012 Refill ZLEB 5D [facility] [place] [address] Social History Tobacco Use Types Packs/Day Years [...] Tavera APRN [facility] ORTHOPAEDIC SURG [place], [place] [address] (Wo rk) 01/15/2022 Appointment Radiology Stiven Cervantes MD [facility] Pulmonary Medici [place], [place] [address] (Wo rk) Scheduled Procedures Name Priority Associated Diagnoses Date/Time DEBRIDEMENT SKIN, SUBCU, MUSCLE, R great toe amp utation, wound LOWER EXTREMITY (WRVU 2.7) closure MODIFIER WOUND VAC R great toe amputation, wound closure documented as of this encounter Visit Diagnoses Not on filedocumented in this encounter Care Teams Bridal Service Sales And Management Relationship Specialty Start Date End Date Eli Bergman MD PCP - General 11/21/11 04/20/13 [facility] GENERAL [place] [address] documented as of this encounter
--- OUTSIDE RECORDS SUMMARY | 2021-11-30 08:28 | XMS_ITS | Encounter Summary ---
:1955 Author Organization [facility] [place] [address] Care Team Providers Name Role Phone Eli Bergman MD Primary Care Provider Reason for Visit Reason Comments Medication Refill Encounter Details Date Type Department Care Team Description 01/21/2012 Refill Psychiatry and Behavioral Everton Thornton MD [facility] at [facility] Jenni hammer [place] [address] [place] [address] [phone] (Wo rk) Social History Tobacco Use Types [...] [facility] DR ORTHOPAEDIC SURG [place], [place] [address] (Wo rk) 01/15/2022 Appointment Radiology Stiven Cervantes MD [facility] Pulmonary Medici nelly [place], [place] [address] (Wo rk) Scheduled Procedures Name Priority Associated Diagnoses Date/Time DEBRIDEMENT SKIN, SUBCU, MUSCLE, R great toe amp utation, wound LOWER EXTREMITY (WRVU 2.7) closure MODIFIER WOUND VAC R great toe amputation, wound closure documented as of this encounter Visit Diagnoses Not on filedocumented in this encounter Care Teams Inspector Hot Forgings Relationship Specialty Start Date End Date Eli Bergman MD PCP - General 11/21/11 04/20/13 [facility] GENER[place] [address] documented as of this encounter
--- OUTSIDE RECORDS SUMMARY | 2021-11-30 08:28 | XMS_ITS | Encounter Summary ---
:1955 Author Organization [place] [address] Care Team Providers Name Role Phone Eli Bergman MD Primary Care Provider Encounter Details Date Type Department Care Team Description 11/22/2011 Telephone Gastroenterology at [facility] Ruma Botello, RN [facility] [place] [address] Social History Tobacco Use Types Packs/Day Years Used Date Current Every Day Smoker Cigarettes 0.25 42 Smokeless Tobacco: Former User Alcohol Use Standard Drinks/Week Comments Not Asked 0 (1 standard drink = 0.6 oz pure alcoho l) Sex Assigned at Date Recorded Not on file documented as of this encounter Miscellaneous Notes Telephone Encounter - Ruma Botello, RN - 11/22/2011 4:47 PM EDT Patient left message on nurse's VM requesting a call back. Attempted to call patient back. He was not at home. His answered and stated that he has been robert very deep depression and needed to talk to someone and wanted to talk to Jack Dowling NP. states he has not expressed S/H ideation and she does not believe he is that depressed. Advised that if patient appears to become a danger to himself or others she must call 911 and she agrees. Patient amador voluntarily present to an ED. She was also provided the number of psych emergency services and encouraged to call. Patient has not called his psychiatrist or counselor. Advised that he shoulddefinitely place a call as soon as he returns. She agrees. Call back and reached patient and he denies S/H ideation and states that he would just like a call back from Jack Dowling NP to discuss test results. Reviewed instructions as listed above, and that if he experiences S/H ideation to call 911 or go to ED and he agrees. Update to Jack Dowling NP documented in this encounter Plan of Treatment Upcoming Encounters Date Type Specialty Care Team Description 12/11/2021 Appointment Radiology 12/11/2021 Office Visit Orthopaedics Marion Tavera APRN [facility] ORTHOPAEDIC SURG [place], [place] [address] (Wo rk) 01/15/2022 Appointment Radiology Stiven Cervantes MD [facility] Pulmonary Medici [place], [place] [address] (Wo rk) Scheduled Procedures Name Priority Associated Diagnoses Date/Time DEBRIDEMENT SKIN, SUBCU, MUSCLE, R great toe amp utation, wound LOWER EXTREMITY (WRVU 2.7) closure MODIFIER WOUND VAC R great toe amputation, wound closure documented as of this encounter Visit Diagnoses Not on filedocumented in this encounter Care Teams Sales Representative [employer] Furniture Relationship Specialty Start Date End Date Eli Bergman MD PCP - General 11/21/11 04/20/13 [facility] GENERAL [place] [address] documented as of this encounter
--- OUTSIDE RECORDS SUMMARY | 2021-11-30 08:28 | XMS_ITS | Encounter Summary ---
:1955 Author Organization [facility] [place] [address] Care Team Providers Name Role Phone Eli Bergman MD Primary Care Provider Reason for Visit Reason Onset Date Comments Medication Refill 06/17/2012 Encounter Details Date Type Department Care Team Description 06/17/2012 Refill Internal Medicine at [facility] Vidhya Puckett, [place] [address] Social History Tobacco Use Types Packs/Day [...] APRN [facility] ORTHOPAEDIC SURG [place], [place] 0[address] (Wo rk) 01/15/2022 Appointment Radiology Stiven Cervantes MD [facility] Pulmonary Medici [place], [place] [address] (Wo rk) Scheduled Procedures Name Priority Associated Diagnoses Date/Time DEBRIDEMENT SKIN, SUBCU, MUSCLE, R great toe amp utation, wound LOWER EXTREMITY (WRVU 2.7) closure MODIFIER WOUND VAC R great toe amputation, wound closure documented as of this encounter Visit Diagnoses Not on filedocumented in this encounter Care Teams City Planning Engineer Relationship Specialty Start Date End Date Eli Bergman MD PCP - General 11/21/11 04/20/13 [facility] [place] [address] documented as of this encounter
--- OUTSIDE RECORDS SUMMARY | 2021-11-30 08:28 | XMS_ITS | Encounter Summary ---
:1955 Author Organization [facility] [place] [address] Care Team Providers Name Role Phone Eli Bergman MD Primary Care Provider Reason for Visit Reason Onset Date Comments Medication Refill 06/02/2012 Encounter Details Date Type Department Care Team Description 06/02/2012 Refill Internal Medicine at [facility] Dalia Antunez Pain (Primary Dx) [facility] [place] [address] Social History Tobacco Use Types Packs/Day [...] Tavera APRN [facility] ORTHOPAEDIC SURG [place], [place] [address] (Wo rk) 01/15/2022 Appointment Radiology Stiven Cervantes MD [facility] Pulmonary Medici nelly [place], [place] [address] (Wo rk) Scheduled Procedures Name Priority Associated Diagnoses Date/Time DEBRIDEMENT SKIN, SUBCU, MUSCLE, R great toe amp utation, wound LOWER EXTREMITY (WRVU 2.7) closure MODIFIER WOUND VAC R great toe amputation, wound closure documented as of this encounter Visit Diagnoses Diagnosis Pain - Primary Generalized pain documented in this encounter Care Teams Pigment Pusher Relationship Specialty Start Date End Date Eli Bergman MD PCP - General 11/21/11 04/20/13 [facility] [place] [address] documented as of this encounter
--- OUTSIDE RECORDS SUMMARY | 2021-11-30 08:28 | XMS_ITS | Encounter Summary ---
:1955 Author Organization [facility] [place] [address] Care Team Providers Name Role Phone Eli Bergman MD Primary Care Provider Reason for Visit Reason Onset Date Comments Medication Refill 02/07/2012 Encounter Details Date Type Department Care Team Description 02/07/2012 Refill Psychiatry and Behavioral Horn, Ed San MD Health at [facility] Jenni hammer [place] [address] [place] [address] [phone] (Wo rk) Social History Tobacco Use Types [...] 12/11/2021 Office Visit Orthopaedics Marion Tavera APRN [facility] ORTHOPAEDIC SURG [place], [place] [address] (Wo rk) 01/15/2022 Appointment Radiology Stiven Cervantes MD [facility] Pulmonary Medici nelly [place], [place] [address] (Wo rk) Scheduled Procedures Name Priority Associated Diagnoses Date/Time DEBRIDEMENT SKIN, SUBCU, MUSCLE, R great toe amp utation, wound LOWER EXTREMITY (WRVU 2.7) closure MODIFIER WOUND VAC R great toe amputation, wound closure documented as of this encounter Visit Diagnoses Not on filedocumented in this encounter Care Teams Subgrade Roller Operator Relationship Specialty Start Date End Date Eli Bergman MD PCP - General 11/21/11 04/20/13 [facility] GENERAL [place] [address] documented as of this encounter
--- OUTSIDE RECORDS SUMMARY | 2021-11-30 08:28 | XMS_ITS | Encounter Summary ---
:1955 Author Organization [place] [address] Care Team Providers Name Role Phone Eli Bergman MD Primary Care Provider Reason for Visit Reason Onset Date Comments Medication Refill 02/27/2012 Encounter Details Date Type Department Care Team Description 02/27/2012 Refill Internal Medicine at [facility] Dalia Antunez Pain (Primary Dx) [facility] [place] [address] Social History Tobacco Use Types Packs/Day [...] APRN [facility] ORTHOPAEDIC SURG [place], [place] [address] (Wo rk) 01/15/2022 Appointment Radiology Stiven Cervantes MD [facility] Pulmonary Medici nelly [place], [place] [address] (Wo rk) Scheduled Procedures Name Priority Associated Diagnoses Date/Time DEBRIDEMENT SKIN, SUBCU, MUSCLE, R great toe amp utation, wound LOWER EXTREMITY (WRVU 2.7) closure MODIFIER WOUND VAC R great toe amputation, wound closure documented as of this encounter Visit Diagnoses Diagnosis Pain - Primary Generalized pain documented in this encounter Care Teams Field Control Inspector Relationship Specialty Start Date End Date Eli Bergman MD PCP - General 11/21/11 04/20/13 [facility] GENERAL [place] [address] documented as of this encounter
--- OUTSIDE RECORDS SUMMARY | 2021-11-30 08:28 | XMS_ITS | Encounter Summary ---
:1955 Author Organization [facility] [place] [address] Care Team Providers Name Role Phone Eli Bergman MD Primary Care Provider Reason for Visit Reason Onset Date Comments Medication Refill 04/06/2012 Encounter Details Date Type Department Care Team Description 04/06/2012 Refill Internal Medicine at [facility] Dalia Antunez Pain (Primary Dx) [facility] [place] [address] Social History Tobacco Use Types Packs/Day [...] Marion Tavera APRN [facility] ORTHOPAEDIC SURG [place], [place] [address] (Wo rk) 01/15/2022 Appointment Radiology Stiven Cervantes MD [facility] Pulmonary Medici nelly [place], [place] [address] (Wo rk) Scheduled Procedures Name Priority Associated Diagnoses Date/Time DEBRIDEMENT SKIN, SUBCU, MUSCLE, R great toe amp utation, wound LOWER EXTREMITY (WRVU 2.7) closure MODIFIER WOUND VAC R great toe amputation, wound closure documented as of this encounter Visit Diagnoses Diagnosis Pain - Primary Generalized pain documented in this encounter Care Teams Roll Grinder Relationship Specialty Start Date End Date Eli Bergman MD PCP - General 11/21/11 04/20/13 [facility] GENERAL [place] [address] documented as of this encounter
--- OUTSIDE RECORDS SUMMARY | 2021-11-30 08:28 | XMS_ITS | Encounter Summary ---
:1955 Author Organization [facility] [place] [address] Care Team Providers Name Role Phone Eli Bergman MD Primary Care Provider Reason for Visit Reason Onset Date Comments Medication Refill 07/27/2012 Encounter Details Date Type Department Care Team Description 07/27/2012 Refill Internal Medicine at [facility] Vidhya Puckett RN [facility] Dx[facility] [place] [address] Social History Tobacco Use Types Packs/Day [...] [facility] ORTHOPAEDIC SURG [place], [place] [address] (Wo rk) 01/15/2022 Appointment Radiology Stiven Cervantes MD [facility] Pulmonary Medici [place], [place] [address] (Wo rk) Scheduled Procedures Name Priority Associated Diagnoses Date/Time DEBRIDEMENT SKIN, SUBCU, MUSCLE, R great toe amp utation, wound LOWER EXTREMITY (WRVU 2.7) closure MODIFIER WOUND VAC R great toe amputation, wound closure documented as of this encounter Visit Diagnoses Diagnosis Pain - Primary Generalized pain documented in this encounter Care Teams Training And Development Head Relationship Specialty Start Date End Date Eli Bergman MD PCP - General 11/21/11 04/20/13 [facility] GENERAL [place] [address] documented as of this encounter
--- OUTSIDE RECORDS SUMMARY | 2021-11-30 08:28 | XMS_ITS | Encounter Summary ---
:1955 [place] [address] Care Team Providers Name Role Phone Eli Bergman MD Primary Care Provider Reason for Visit Reason Comments Medication Refill Encounter Details Date Type Department Care Team Description 06/24/2012 Refill Internal Medicine at [facility] Raiza Angelo MD [facility] [place] [address] GENERAL INTERNAL MEDICINE [phone] [place], [place] [address] (Wo rk) Social History Tobacco [...] [facility] DR ORTHOPAEDIC SURG [place], [place] [address] (Wo rk) 01/15/2022 Appointment Radiology Stiven Cervantes MD [facility] Pulmonary Mediccharlie villegas [place], [place] [address] (Wo rk) Scheduled Procedures Name Priority Associated Diagnoses Date/Time DEBRIDEMENT SKIN, SUBCU, MUSCLE, R great toe amp utation, wound LOWER EXTREMITY (WRVU 2.7) closure MODIFIER WOUND VAC R great toe amputation, wound closure documented as of this encounter Visit Diagnoses Not on filedocumented in this encounter Care Teams Aircraft Accessories Mechanic Relationship Specialty Start Date End Date Eli Bergman MD PCP - General 11/21/11 04/20/13 [facility] GENER[place] [address] documented as of this encounter
--- OUTSIDE RECORDS SUMMARY | 2021-11-30 08:28 | XMS_ITS | Encounter Summary ---
:1955 Author Organization [facility] [place] [address] Care Team Providers Name Role Phone Eli Bergman MD Primary Care Provider Reason for Visit Reason Onset Date Comments Medication Refill 04/21/2012 Encounter Details Date Type Department Care Team Description 04/21/2012 Refill Psychiatry and Behavioral Sen Gomes MD [facility] Jenni hammer [place] [address] [place] [address] [phone] (Wo rk) Social History Tobacco Use Types Packs/Day Years Used Date Current Every Day Smoker Cigarettes 0.25 42 Smokeless Tobacco: Former User Alcohol Use Standard Drinks/Week Comments Not Asked 0 (1 standard drink = 0.6 oz pure alcoho l) Sex Assigned at Date Recorded Not on file documented as of this encounter Miscellaneous Notes Telephone Encounter - Miriam Jones - 04/22/2012 8:27 AM EST I mistakenly documented that the patient is requesting refill on Seroquel and has been out for 3 weeks. This patient is not prescribed Seroquel. He is looking for a refill on Ritalin. Telephone Encounter - Miriam Jones - 04/21/2012 2:59 PM EST Received call from patient stating that needs to speak with provider Dr. Sen Gomes MD about not having his medication Seroquel for about 3 weeks. He states that he's feeling extremely depressed, severely lacking in motivation and desire to do things. He would like for you to know that he hasn't hadanyone to speak with since Dr. Thornton's departure on 01/01/12. documented in this encounter Plan of Treatment Upcoming Encounters Date Type Specialty Care Team Description 12/11/2021 Appointment Radiology 12/11/2021 Office Visit Orthopaedics Marion Tavera APRN [facility] ORTHOPAEDIC SURG [place], [place] [address] (Wo rk) 01/15/2022 Appointment Radiology Stiven Cervantes MD [facility] Pulmonary Medici ne [place], [place] [address] (Wo rk) Scheduled Procedures Name Priority Associated Diagnoses Date/Time DEBRIDEMENT SKIN, SUBCU, MUSCLE, R great toe amp utation, wound LOWER EXTREMITY (WRVU 2.7) closure MODIFIER WOUND VAC R great toe amputation, wound closure documented as of this encounter Visit Diagnoses Not on filedocumented in this encounter Care Teams Software Programmer Relationship Specialty Start Date End Date Eli Bergman MD PCP - General 11/21/11 04/20/13 [facility] GENERAL [place] [address] documented as of this encounter
--- OUTSIDE RECORDS SUMMARY | 2021-11-30 08:28 | XMS_ITS | Encounter Summary ---
:1955 Author Organization [facility] [place] [address] Care Team Providers Name Role Phone Eli Bergman MD Primary Care Provider Reason for Visit Reason Onset Date Comments Medication Refill 12/10/2011 Encounter Details Date Type Department Care Team Description 12/10/2011 Refill Internal Medicine at [facility] Dalia Antunez Pain (Primary Dx) [facility] [place] [address] Social History Tobacco Use Types Packs/Day [...] APRN [facility] ORTHOPAEDIC SURG [place], [place] [address] (Wo rk) 01/15/2022 Appointment Radiology Stiven Cervantes MD [facility] Pulmonary Medici nelly [place], [place] [address] (Wo rk) Scheduled Procedures Name Priority Associated Diagnoses Date/Time DEBRIDEMENT SKIN, SUBCU, MUSCLE, R great toe amp utation, wound LOWER EXTREMITY (WRVU 2.7) closure MODIFIER WOUND VAC R great toe amputation, wound closure documented as of this encounter Visit Diagnoses Diagnosis Pain - Primary Generalized pain documented in this encounter Care Teams Corporate Statistical Financial Analyst Relationship Specialty Start Date End Date Eli Bergman MD PCP - General 11/21/11 04/20/13 [facility] GENER[place] [address] documented as of this encounter
--- OUTSIDE RECORDS SUMMARY | 2021-11-30 08:28 | XMS_ITS | Encounter Summary ---
:1955 Author Organization [facility] [place] [address] Care Team Providers Name Role Phone Eli Bergman MD Primary Care Provider Reason for Visit Reason Onset Date Comments Medication Refill 07/13/2012 Encounter Details Date Type Department Care Team Description 07/13/2012 [place]ill [place] Medicine [place] [facility] Vidhya Puckett RN [facility] Dx[facility] [place] [address] Social History Tobacco Use Types Packs/Day [...] APRN [facility] DR ORTHOPAEDIC SURG [place], [place] 0[address] (Wo rk) 01/15/2022 Appointment Radiology Stiven Cervantes MD [facility] Pulmonary Medici [place], [place] [address] (Wo rk) Scheduled Procedures Name Priority Associated Diagnoses Date/Time DEBRIDEMENT SKIN, SUBCU, MUSCLE, R great toe amp utation, wound LOWER EXTREMITY (WRVU 2.7) closure MODIFIER WOUND VAC R great toe amputation, wound closure documented as of this encounter Visit Diagnoses Diagnosis Pain - Primary Generalized pain documented in this encounter Care Teams Snow Remover Relationship Specialty Start Date End Date Eli Bergman MD PCP - General 11/21/11 04/20/[address] [facility] GENERAL [place] [address] documented as of this encounter
--- OUTSIDE RECORDS SUMMARY | 2021-11-30 08:28 | XMS_ITS | Encounter Summary ---
:1955 Author Organization [facility] Address [address] [place] [address] Care Team Providers Name Role Phone Eli Bergman MD Primary Care Provider Reason for Visit Reason Onset Date Comments Medication Refill 04/23/2012 Encounter Details Date Type Department Care Team Description 04/23/2012 Refill Internal Medicine at [facility] Dalia Antunez, [facility] [place] [address] Social History Tobacco Use Types Packs/Day [...] Visit Orthopaedics Marion Tavera APRN [facility] ORTHOPAEDIC SURG [place], [place] 0[address] (Wo rk) 01/15/2022 Appointment Radiology Stiven Cervantes MD [facility] Pulmonary Medici nelly [place], [place] [address] (Wo rk) Scheduled Procedures Name Priority Associated Diagnoses Date/Time DEBRIDEMENT SKIN, SUBCU, MUSCLE, R great toe amp utation, wound LOWER EXTREMITY (WRVU 2.7) closure MODIFIER WOUND VAC R great toe amputation, wound closure documented as of this encounter Visit Diagnoses Not on filedocumented in this encounter Care Teams Sole Sewer Hand Relationship Specialty Start Date End Date Eli Bergman MD PCP - General 11/21/11 04/20/13 [facility] [place] [address] documented as of this encounter
--- OUTSIDE RECORDS SUMMARY | 2021-11-30 08:28 | XMS_ITS | Encounter Summary ---
:1955 Author Organization [place] [address] Care Team Providers Name Role Phone Eli Bergman MD Primary Care Provider Reason for Visit Reason Comments Follow-up Encounter Details Date Type Department Care Team Description 03/11/2012 Follow-Up Gastroenterology at [facility] Caitlin Dowling, Cirrhosis of liver; [facility] Jenni hammer [place] [address] [facility] [phone] CENTER GASTROENTEROLOGY DEPT. [place], [place] [address] Social History Tobacco Use Types [...] Sign Reading Time Taken Comments Blood Pressure 154/78 03/11/2012 11:03 AM EDT Pulse 80 03/11/2012 11:03 AM EDT Temperature - - Respiratory Rate - - Oxygen Saturation - - Inhaled Oxygen Concentration - - Weight 98.9 kg (218 lb) 03/11/2012 11:03 AM EDT Height 175.3 cm (5' 9) 03/11/2012 11:03 AM EDT Body Mass Index 32.19 03/11/2012 11:03 AM EDT documented in this encounter Progress Notes Caitlin Dowling APRN - 03/11/2012 11:04 AM EDT Subjective: Patient ID: Mahin Ramos is a 56 y.o. male. HPI Current problem list: 1. [...] - INTERVAL HISTORY: Mr. Ramos Is a 55 year old male who completed 48 weeks of Peg iNterferon and Ribavirin therapy and had a viral relapse when treament was discontinued. He became undetectable at week 6, but then had a one time detectable viral load at week 9. He denies gi tract bleeding, ascites or encephalopathy. No new issues since his last visit. Ultrasound - Abdomen Complete - Summary Liver: Hepatomegaly, coarse echotexture, smooth wall.Known cirrhosis. GB: Polyps and cholesterol plaques seen. Ultrasound - Vascular evaluation - Summary Hepatic veins, portal vein and hepatic artery patent with normal directional flow in portal vein. MPV Velocity: 26.4 cm/sec (normal) Hepatic Artery RI 0.62 (normal) The Hepatic Vein waveforms are abnormal.Middle hep v waveforms show severe loss of phasicity. Left was noisy and difficult to interpret. This may be due to cirrhosis. ddx includes veno-occlusive disease, Budd- Chiair and venous outflow obstruction and thrombus (no visualized thrombus) Review of Systems Constitutional: Negative for fever. Respiratory: Negative for cough and shortness of breath. Cardiovascular: Negative for chest pain. Gastrointestinal: Negative for nausea, vomiting and abdominal pain. Objective: Physical Exam Constitutional: He appears well-developed and well-nourished. HENT: Head: Normocephalic and atraumatic. Eyes: No scleral icterus. Skin: Skin is warm and dry. Psychiatric: He has a normal mood and affect. His behavior is normal. Assessment and Plan: 1. Hepatitis C genotype 2 with viral relapse post Interferon and Ribavirin therapy. We discussed hisretreatment options today and as there is not a rationale retreatment option at this time given his genotype 2 infection. We may have a clinical trial in the next six months which he could consider. 2. Cirrhosis, will schedule surveillance abdominal ultrasound in May, he had some vascular abnormality described on previous doppler will repeat in May, I wonder if he has developed a portal vein thrombus. Will schedule EGD screening until May of 2012, last scope was in 2009 and was negative for varices. He will follow up in six months for ongoing surveillance. Will plan to see him back in six months for ongoing follow up. documented in this encounter Plan of Treatment Upcoming Encounters Date Type Specialty Care Team Description 12/11/2021 Appointment Radiology 12/11/2021 Office Visit Orthopaedics Marion Tavera APRN [facility] ORTHOPAEDIC SURG [place], [place] [address] (Wo rk) 01/15/2022 Appointment Radiology Stiven Cervantes MD [facility] Pulmonary Medici [place], [place] [address] (Wo rk) Scheduled Procedures Name Priority Associated Diagnoses Date/Time DEBRIDEMENT SKIN, SUBCU, MUSCLE, R great toe amp utation, wound LOWER EXTREMITY (WRVU 2.7) closure MODIFIER WOUND VAC R great toe amputation, wound closure documented as of this encounter Visit Diagnoses Diagnosis Cirrhosis of liver Cirrhosis of liver without mention of al cohol Chronic hepatitis C Chronic hepatitis C without mention of h epatic coma documented in this encounter Care Teams Telecom Sales Consultant Relationship Specialty Start Date End Date Eli Bergman MD PCP - General 11/21/11 04/20/13 [facility] GENER[place] [address] documented as of this encounter
--- OUTSIDE RECORDS SUMMARY | 2021-11-30 08:28 | XMS_ITS | Encounter Summary ---
:1955 Author Organization [facility] [place] [address] Care Team Providers Name Role Phone Eli Bergman MD Primary Care Provider Reason for Visit Reason Onset Date Comments Medication Refill 06/23/2012 Encounter Details Date Type Department Care Team Description 06/23/2012 Refill Internal Medicine at [facility] Vidhya Puckett RN Pain (Primary Dx[facility] [place] [address] Social History Tobacco Use Types Packs/Day [...] [facility] DR ORTHOPAEDIC SURG [place], [place] [address] (Wo rk) 01/15/2022 Appointment Radiology Stiven Cervantes MD [facility] Pulmonary Medici [place], [place] [address] (Wo rk) Scheduled Procedures Name Priority Associated Diagnoses Date/Time DEBRIDEMENT SKIN, SUBCU, MUSCLE, R great toe amp utation, wound LOWER EXTREMITY (WRVU 2.7) closure MODIFIER WOUND VAC R great toe amputation, wound closure documented as of this encounter Visit Diagnoses Diagnosis Pain - Primary Generalized pain documented in this encounter Care Teams Printing Sign Machine Operator Relationship Specialty Start Date End Date Eli Bergman MD PCP - General 11/21/11 04/20/13 [facility] [place] [address] documented as of this encounter
--- OUTSIDE RECORDS SUMMARY | 2021-11-30 08:28 | XMS_ITS | Encounter Summary ---
:1955 Author Organization [facility] Address [facility] [place] [address] Care Team Providers Name Role Phone Eli Bergman MD Primary Care Provider Reason for Visit Reason Onset Date Comments Medication Refill 05/06/2012 Encounter Details Date Type Department Care Team Description 05/06/2012 Refill [place] Medicine [place] [facility] Dalia Antunez, [facility] [place] [address] Social History Tobacco Use Types Packs/Day [...] Orthopaedics Marion Tavera APRN [facility] ORTHOPAEDIC SURG [place], [place] [address] (Wo rk) 01/15/2022 Appointment Radiology Sitven Cervantes MD [facility] Pulmonary Medici nelly [place], [place] [address] (Wo rk) Scheduled Procedures Name Priority Associated Diagnoses Date/Time DEBRIDEMENT SKIN, SUBCU, MUSCLE, R great toe amp utation, wound LOWER EXTREMITY (WRVU 2.7) closure MODIFIER WOUND VAC R great toe amputation, wound closure documented as of this encounter Visit Diagnoses Not on filedocumented in this encounter Care Teams Revolving Field Assembler Relationship Specialty Start Date End Date Eli Bergman MD PCP - General 11/21/11 04/20/13 [facility] GENERAL [place] [address] documented as of this encounter
--- OUTSIDE RECORDS SUMMARY | 2021-11-30 08:28 | XMS_ITS | Encounter Summary ---
:1955 Author Organization [facility] [place] [address] Care Team Providers Name Role Phone Eli Bergman MD Primary Care Provider Reason for Visit Reason Onset Date Comments Medication Refill 03/09/2012 Encounter Details Date Type Department Care Team Description 03/09/2012 Refill Psychiatry and Behavioral Sen Gomes MD [facility] Jenni [place] [address] [place] [address] [phone] (Wo rk) Social History Tobacco Use Types [...] [facility] ORTHOP[facility] SURG [place], [place] [address] (Wo rk) 01/15/2022 Appointment Radiology Stiven Cervantes MD [facility] Pulmonary Medici nelly [place], [place] [address] (Wo rk) Scheduled Procedures Name Priority Associated Diagnoses Date/Time DEBRIDEMENT SKIN, SUBCU, MUSCLE, R great toe amp utation, wound LOWER EXTREMITY (WRVU 2.7) closure MODIFIER WOUND VAC R great toe amputation, wound closure documented as of this encounter Visit Diagnoses Not on filedocumented in this encounter Care Teams Production Manager Relationship Specialty Start Date End Date Eli Bergman MD PCP - General 11/21/11 04/20/13 [facility] [place] [address] documented as of this encounter
--- OUTSIDE RECORDS SUMMARY | 2021-11-30 08:28 | XMS_ITS | Encounter Summary ---
:1955 Author Organization [facility] [place] [address] Care Team Providers Name Role Phone Eli Bergman MD Primary Care Provider Reason for Visit Reason Comments Medication Refill Encounter Details Date Type Department Care Team Description 02/25/2012 Refill Psychiatry and Behavioral Sen Gomes MD [facility] at [facility] Jenni [place] [address] [place] [address] [phone] (Wo rk) Social History Tobacco Use Types [...] Visit Orthopaedics Marion Tavera APRN [facility] ORTHOPAEDIC SURG [place], [place] [address] (Wo rk) 01/15/2022 Appointment Radiology Stiven Cervantes MD [facility] Pulmonary Medici nelly [place], [place] [address] (Wo rk) Scheduled Procedures Name Priority Associated Diagnoses Date/Time DEBRIDEMENT SKIN, SUBCU, MUSCLE, R great toe amp utation, wound LOWER EXTREMITY (WRVU 2.7) closure MODIFIER WOUND VAC R great toe amputation, wound closure documented as of this encounter Visit Diagnoses Not on filedocumented in this encounter Care Teams Roller Presser Operator Relationship Specialty Start Date End Date Eli Bergman MD PCP - General 11/21/11 04/20/13 [facility] GENER[place] [address] documented as of this encounter
--- OUTSIDE RECORDS SUMMARY | 2021-11-30 08:28 | XMS_ITS | Encounter Summary ---
:1955 Author Organization [facility] [place] [address] Care Team Providers Name Role Phone Eli Bergman MD Primary Care Provider Reason for Visit Reason Onset Date Comments Medication Refill 07/07/2012 Encounter Details Date Type Department Care Team Description 07/07/2012 Refill Internal Medicine at [facility] Vidhya Puckett RN Pain (Primary Dx) [facility] [place] [address] Social History Tobacco Use Types Packs/Day [...] [facility] DR ORTHOPAEDIC SURG [place], [place] [address] (Wo rk) 01/15/2022 Appointment Radiology Stiven Cervantes MD [facility] Pulmonary Medici [place], [place] [address] (Wo rk) Scheduled Procedures Name Priority Associated Diagnoses Date/Time DEBRIDEMENT SKIN, SUBCU, MUSCLE, R great toe amp utation, wound LOWER EXTREMITY (WRVU 2.7) closure MODIFIER WOUND VAC R great toe amputation, wound closure documented as of this encounter Visit Diagnoses Diagnosis Pain - Primary Generalized pain documented in this encounter Care Teams International Representative Relationship Specialty Start Date End Date Eli Bergman MD PCP - General 11/21/11 04/20/13 [facility] GENERAL [place] [address] documented as of this encounter
--- OUTSIDE RECORDS SUMMARY | 2021-11-30 08:28 | XMS_ITS | Encounter Summary ---
:1955 Author Organization [facility] [place] [address] Care Team Providers Name Role Phone Eli Bergman MD Primary Care Provider Reason for Visit Reason Comments Medication Refill Encounter Details Date Type Department Care Team Description 01/20/2012 Refill Psychiatry and Behavioral Everton Thornton MD [facility] at [facility] Jenni hammer [place] [address] [place] [address] [phone] (Wo rk) Social History Tobacco Use Types [...] [facility] DR ORTHOPAEDIC SURG [place], [place] [address] (Wo rk) 01/15/2022 Appointment Radiology Stiven Cervantes MD [facility] Pulmonary Medici nelly [place], [place] [address] (Wo rk) Scheduled Procedures Name Priority Associated Diagnoses Date/Time DEBRIDEMENT SKIN, SUBCU, MUSCLE, R great toe amp utation, wound LOWER EXTREMITY (WRVU 2.7) closure MODIFIER WOUND VAC R great toe amputation, wound closure documented as of this encounter Visit Diagnoses Not on filedocumented in this encounter Care Teams Supervisor Evaporator Relationship Specialty Start Date End Date Eli Bergman MD PCP - General 11/21/11 04/20/13 [facility] GENER[place] [address] documented as of this encounter
--- OUTSIDE RECORDS SUMMARY | 2021-11-30 08:28 | XMS_ITS | Encounter Summary ---
:1955 Author Organization [facility] [place] [address] Care Team Providers Name Role Phone Vinicio Ferris MD Primary Care Provider Reason for Visit Reason Onset Date Comments Medication Refill 11/11/2011 Encounter Details Date Type Department Care Team Description 11/11/2011 Refill Internal Medicine at [facility] Dalia Antunez Pain (Primary Dx) [facility] [place] [address] Social History Tobacco Use Types Packs/Day [...] 12/11/2021 Appointment Radiology 12/11/2021 Office Visit Orthopaedics Mraion Tavera APRN [facility] ORTHOPAEDIC SURG [place], [place] [address] (Wo rk) 01/15/2022 Appointment Radiology Stiven Cervantes MD [facility] Pulmonary Medici nelly [place], [place] [address] (Wo rk) Scheduled Procedures Name Priority Associated Diagnoses Date/Time DEBRIDEMENT SKIN, SUBCU, MUSCLE, R great toe amp utation, wound LOWER EXTREMITY (WRVU 2.7) closure MODIFIER WOUND VAC R great toe amputation, wound closure documented as of this encounter Visit Diagnoses Diagnosis Pain - Primary Generalized pain documented in this encounter Care Teams Operations Dispatcher Relationship Specialty Start Date End Date Vinicio Ferris MD PCP - General 10/18/10 11/20/11 [facility] GENERAL [place] [address] documented as of this encounter
--- OUTSIDE RECORDS SUMMARY | 2021-11-30 08:28 | XMS_ITS | Encounter Summary ---
:1955 Author Organization [facility] Address [facility] [place] [address] Care Team Providers Name Role Phone Eli Bergman MD Primary Care Provider Reason for Visit Reason Onset Date Comments Medication Refill 03/23/2012 Encounter Details Date Type Department Care Team Description 03/23/2012 [place]ill [place] [facility] Dalia Antunez, [facility] [place] [address] Social History Tobacco Use Types Packs/Day [...] APRN [facility] ORTHOPAEDIC SURG [place], [place] [address] (Wo rk) 01/15/2022 Appointment Radiology Stiven Cervantes MD [facility] Pulmonary Medici nelly [place], [place] [address] (Wo rk) Scheduled Procedures Name Priority Associated Diagnoses Date/Time DEBRIDEMENT SKIN, SUBCU, MUSCLE, R great toe amp utation, wound LOWER EXTREMITY (WRVU 2.7) closure MODIFIER WOUND VAC R great toe amputation, wound closure documented as of this encounter Visit Diagnoses Not on filedocumented in this encounter Care Teams School Superintendent Relationship Specialty Start Date End Date Eli Bergman MD PCP - General 11/21/11 04/20/13 [facility] GENER[place] [address] documented as of this encounter
--- OUTSIDE RECORDS SUMMARY | 2021-11-30 08:28 | XMS_ITS | Encounter Summary ---
:1955 Author Organization [facility] [place] [address] Care Team Providers Name Role Phone Eli Bergman MD Primary Care Provider Reason for Visit Reason Onset Date Comments Medication Refill 01/27/2012 Encounter Details Date Type Department Care Team Description 01/27/2012 Refill Internal Medicine at [facility] [place] [place] Dalia Antunez Pain (Primary Dx) [facility] [place] [address] Social History Tobacco Use Types Packs/Day [...] APRN [facility] ORTHOPAEDIC SURG [place], [place] [address] (Wo rk) 01/15/2022 Appointment Radiology Stiven Cervantes MD [facility] Pulmonary Medici nelly [place], [place] [address] (Wo rk) Scheduled Procedures Name Priority Associated Diagnoses Date/Time DEBRIDEMENT SKIN, SUBCU, MUSCLE, R great toe amp utation, wound LOWER EXTREMITY (WRVU 2.7) closure MODIFIER WOUND VAC R great toe amputation, wound closure documented as of this encounter Visit Diagnoses Diagnosis Pain - Primary Generalized pain documented in this encounter Care Teams Process Cheese Cooker Relationship Specialty Start Date End Date Eli Bergman MD PCP - General 11/21/11 04/20/13 [facility] [place] [address] documented as of this encounter
--- OUTSIDE RECORDS SUMMARY | 2021-11-30 08:28 | XMS_ITS | Encounter Summary ---
:1955 Author Organization [facility] [address] Care Team Providers Name Role Phone Eli Bergman MD Primary Care Provider Reason for Visit Reason Onset Date Comments Medication Refill 01/16/2012 Encounter Details Date Type Department Care Team Description 01/16/2012 Refill [place] [facility] [place]ia Antunez Pain (Primary Dx) [facility] [place] [address] Social History Tobacco Use Types Packs/Day [...] [facility] ORTHOPAEDIC SURG [place], [place] [address] (Wo rk) 01/15/2022 Appointment Radiology Stiven Cervantes MD [facility] Pulmonary Medici nelly [place], [place] [address] (Wo rk) Scheduled Procedures Name Priority Associated Diagnoses Date/Time DEBRIDEMENT SKIN, SUBCU, MUSCLE, R great toe amp utation, wound LOWER EXTREMITY (WRVU 2.7) closure MODIFIER WOUND VAC R great toe amputation, wound closure documented as of this encounter Visit Diagnoses Diagnosis Pain - Primary Generalized pain documented in this encounter Care Teams Spinning Frame Cleaner Relationship Specialty Start Date End Date Eli Bergman MD PCP - General 11/21/11 04/20/13 [facility] GENERAL [place] [address] documented as of this encounter
--- OUTSIDE RECORDS SUMMARY | 2021-11-30 08:28 | XMS_ITS | Encounter Summary ---
:1955 Author Organization [facility] Address [facility] [place] [address] Care Team Providers Name Role Phone Eli Bergman MD Primary Care Provider Reason for Visit Reason Onset Date Comments Results 11/28/2011 Encounter Details Date Type Department Care Team Description 11/28/2011 Telephone [place] [facility] [place]aitlin Dowling APRN Results [facility] [place] [phone] GASTROENTEROLOGY [phone] [facility] [place], [place] [address] Social History Tobacco Use Types Packs/Day Years Used Date Current Every Day Smoker Cigarettes 0.25 42 Smokeless Tobacco: Former User Alcohol Use Standard Drinks/Week Comments Not Asked 0 (1 standard drink = 0.6 oz pure alcoho l) Sex Assigned at Date Recorded Not on file documented as of this encounter Miscellaneous Notes Telephone Encounter - Caitlin Dowling APRN - 11/28/2011 9:32 AM EDT Left msg for patient that ultrasound results are stable, will follow up in February at regularly scheduled appt. documented in this encounter Plan of Treatment Upcoming Encounters Date Type Specialty Care Team Description 12/11/2021 Appointment Radiology 12/11/2021 Office Visit Orthopaedics Marion Tavera APRN [facility] ER DR ORTHOPAEDIC SURG [place] [address] (Wo rk) 01/15/2022 Appointment Radiology Stiven Cervantes MD [facility] Pulmonary Medici nelly [place], [place] [address] (Wo rk) Scheduled Procedures Name Priority Associated Diagnoses Date/Time DEBRIDEMENT SKIN, SUBCU, MUSCLE, R great toe amp utation, wound LOWER EXTREMITY (WRVU 2.7) closure MODIFIER WOUND VAC R great toe amputation, wound closure documented as of this encounter Visit Diagnoses Not on filedocumented in this encounter Care Teams Ironworker Helper Shop Relationship Specialty Start Date End Date Eli Bergman MD PCP - General 11/21/11 04/20/13 [facility] [place] [address] documented as of this encounter
--- OUTSIDE RECORDS SUMMARY | 2021-11-30 08:28 | XMS_ITS | Encounter Summary ---
:1955 Author Organization [facility] [place] [address] Care Team Providers Name Role Phone Eli Bergman MD Primary Care Provider Encounter Details Date Type Department Care Team Description 11/21/2011 Hospital Encounter Ultrasound at [facility], DR CARBAJAL [facility] James Aiken MD [facility] [place] [address] [place] [address] Social History Tobacco Use Types Packs/Day Years Used Date Current Every Day Smoker Cigarettes 0.25 42 Smokeless Tobacco: Former User Alcohol Use Standard Drinks/Week Comments Not Asked 0 (1 standard drink = 0.6 oz pure alcoho l) Sex Assigned at Date Recorded Not on file documented as of this encounter Medications at Time of Discharge Medication Sig Dispensed Refills Start Date End Date methadone (DOLOPHINE) 10 Take 4 tablets by 224 tablet 0 10/201112/10/2011 mg tabletIndications: Pain mouth 4 times daily. methylphenidate (RITALIN) Take 1 tablet by 120 tablet 0 10/1112/06/2011 20 mg tablet mouth 4 times daily. For ADHD. Do not fill before 11/07/11. buPROPion (WELLBUTRIN XL) take 1 tablet by 30 tablet 5 07/1103/05/2012 300 mg 24 hr tablet mouth once daily famotidine (PEPCID) 20 mg Take 1 tablet by 30 tablet 12 07/1105/06/2012 tablet mouth 2 times daily. diaZEPam (VALIUM) 5 mg take 1 tablet by 90 tablet 5 012 12/06/2011 tablet mouth three times a day if needed for anxiety amlodipine (NORVASC) 5 mg Take 1 tablet by 90 tablet 3 02/0901/21/2012 tablet mouth daily. atenolol (TENORMIN) 50 mg Take 50 mg by 0 07/27/2012 tablet mouth 2 times daily. ACETAMINOPHEN/DP-HYDRAM Take 2 tablets by 0 08/1608/21/2012 HCL (TYLENOL PM ORAL) mouth nightly as needed. documented as of this encounter Plan of Treatment Upcoming Encounters Date Type Specialty Care Team Description 12/11/2021 Appointment Radiology 12/11/2021 Office Visit Orthopaedics Marion Tavera APRN [facility] ORTHOPAEDIC SURG [place], [place] [address] (Wo rk) 01/15/2022 Appointment Radiology Stiven Cervantes MD [facility] Pulmonary Medici [place], [place] [address] (Wo rk) Scheduled Procedures Name Priority Associated Diagnoses Date/Time DEBRIDEMENT SKIN, SUBCU, MUSCLE, R great toe amp utation, wound LOWER EXTREMITY (WRVU 2.7) closure MODIFIER WOUND VAC R great toe amputation, wound closure documented as of this encounter Procedures Procedure Name Priority Date/Time Associated Diagnosis Comme nts US ABDOMEN COMPLETE Routine 11/21/2011 9:18 AM Re sults for this WITH VASCULAR EDT procedure are in the results section. documented in this encounter Results US ABDOMEN COMPLETE WITH VASCULAR (11/21/2011 9:18 AM EDT) Anatomical Region Laterality Modality Abdomen Ultrasound Specimen (Source) Anatomical Collection Method Collection Time Re ceived Time Location / / Volume Laterality 11/21/2011 9:18 AM EDT Narrative 11/21/2011 10:09 AM EDT ?Abdominal Duplex ? (Signed Final 11/21/2011 10 :09 am) Patient Info ID: ? [id number] ? : ??[birth year] (56 yrs) Name: ? SOLEDAD WAHL ?Visit Date: 11/21/2011 09:16 am Performed By Performed By: ?Loly Shipley RDMS Attending: ? Luiz DYSON, Daniel Ferris Referred By: ? TAWANNA DOWLING [employer] Service(s) Provided UABDCVASC - Abdominal Complete Survey w ith ?[id number], [id number] Vascular - [id number], [id number] Indications CIRRHOSIS ----- Liver ----- Right Lobe Length: ?? 18.5 ?? cm Echogenicity/Echotexture: ?? Coarse par enchyma Portal Veins: ?Hepatopetal Hepatic Veins: ?? Patent Comment: ?Hepatomegaly, ??smooth wa ll. Gallbladder Cholelithiasis: ?Multiple polyps Focal Tenderness: ?No positive Murp hy's sign Comment: ?Polyps and cholesterol pl aques seen. Biliary Tract Intrahepatic Ducts: ?? Normal Extrahepatic Ducts: ?? Normal Common Duct Size: ? 2 ? mm -------- Pancreas -------- Head: ? Normal Tail: ? Poorly visua lized due to overlying bowel Body: ? Normal ------ Spleen ------ Size (cm) ?L: ??11.2 Comment: ?Normal appearance Right Kidney Size (cm) ?L: ??10.9 Cortical Thickness: ?Normal Cortical Echogenicity: ?? Normal Hydronephrosis: ?No sonogr aphic evidence Left Kidney Size (cm) ?L: ??11.7 Cortical Thickness: ?Normal Cortical Echogenicity: ?? Normal Hydronephrosis: ?No sonogr aphic evidence Comment: ?Irregular contour, unchan ged from prior, nl ? bloodflow Urinary Bladder Comment: ?Partially distended and u nremarkable ----- Aorta ----- Comment: ?Normal in caliber --- IVC --- Proximal portion, normal in caliber Hepatic-Portal Duplex Main Portal Vein ? PSV: ?? 26.4 ? cm/s Hepatic Artery ?RI: ?0 .62 Impression Ultrasound - Abdomen Complete - Summary Liver: Hepatomegaly, coarse echotexture , ??smooth wall.Known cirrhosis. GB: Polyps and cholesterol plaques seen . Ultrasound - Vascular evaluation - Summ linnea Hepatic veins, portal vein and hepatic artery patent with normal directional flow in portal vein. MPV Velocity: 26.4 cm/sec (normal) Hepatic Artery RI 0.62 (normal) The Hepatic Vein waveforms are abnormal .Middle hep v waveforms show severe loss of phasici ty. Left was noisy and difficult to interpret. This may be due to cirrhosis. ddx includes veno-occlusive disease, Budd- Chiair and venous outflow obstruction a nd thrombus (no visualized thrombus) I ??viewed the images and agree with th pepito above interpretation. Thank you for allowing us to participat e in the care of SOLEDAD WAHL. Please do not hesitate to call if you have any questions. ?Xochilt Dee MD Electronically Signed Final Report ?? 10:09 am Procedure Note Xochilt Dee MD - 11/21/2011Form atting of this note might be different from the original. Abdominal Duplex (Signed Final 11/21/2011 10:09 am) Patient Info ID: [id number] : [birth year] (56 yrs ) Name: SOLEDAD WAHL Visit Date: 2011 09:16 am Performed By Performed By: Loly Shipley RDMS Attending: Xochilt Dee MD Referred By: TAWANNA DOWLING APRN Service(s) Provided UABDCVASC - Abdominal [place] [id number], [id number] Vascular - [id number], [id number] Indications CIRRHOSIS ----- Liver ----- Right Lobe Length: 18.5 cm Echogenicity/Echotexture: Coarse parenc hyma Portal Veins: Hepatopetal Hepatic Veins: Patent Comment: Hepatomegaly, smooth wall. Gallbladder Cholelithiasis: Multiple polyps Focal Tenderness: No positive Blair's sign Comment: Polyps and cholesterol plaques seen. Biliary Tract Intrahepatic Ducts: Normal Extrahepatic Ducts: Normal Common Duct Size: 2 mm -------- Pancreas -------- Head: Normal Tail: Poorly visualized due to overlyin g bowel Body: Normal ------ Spleen ------ Size (cm) L: 11.2 Comment: Normal appearance Right Kidney Size (cm) L: 10.9 Cortical Thickness: Normal Cortical Echogenicity: Normal Hydronephrosis: No sonographic evidence Left Kidney Size (cm) L: 11.7 Cortical Thickness: Normal Cortical Echogenicity: Normal Hydronephrosis: No sonographic evidence Comment: Irregular contour, unchanged f rom prior, nl bloodflow Urinary Bladder Comment: Partially distended and unrema rkable ----- Aorta ----- Comment: Normal in caliber --- IVC --- Proximal portion, normal in caliber Hepatic-Portal Duplex Main Portal Vein PSV: 26.4 cm/s Hepatic Artery RI: 0.62 Impression Ultrasound - Abdomen Complete - Summary Liver: Hepatomegaly, coarse echotexture , smooth wall.Known cirrhosis. GB: Polyps and cholesterol plaques seen . Ultrasound - Vascular evaluation - Summ linnea Hepatic veins, portal vein and hepatic artery patent with normal directional flow in portal vein. MPV Velocity: 26.4 cm/sec (normal) Hepatic Artery RI 0.62 (normal) The Hepatic Vein waveforms are abnormal .Middle hep v waveforms show severe loss of phasici ty. Left was noisy and difficult to interpret. This may be due to cirrhosis. ddx includes veno-occlusive disease, Budd- Chiair and venous outflow obstruction a nd thrombus (no visualized thrombus) I viewed the images and agree with the above interpretation. Thank you for allowing us to participat e in the care of SOLEDAD WAHL. Please do not hesitate to call if you have any questions. Xochilt Dee MD Electronically Signed Final Report 11/20 10:09 am Tawanna Dowling [employer] IMG US GEN ORDERABLES documented in this encounter Visit Diagnoses Not on filedocumented in this encounter Care Teams Manager Of Merchandising Relationship Specialty Start Date End Date Eli Bergman MD PCP - General 11/21/11 04/20/13 [facility] GENERAL [place] [address] documented as of this encounter
--- OUTSIDE RECORDS SUMMARY | 2021-11-30 08:28 | XMS_ITS | Encounter Summary ---
:1955 [place] [address] Care Team Providers Name Role Phone Eli Bergman MD Primary Care Provider Reason for Visit Reason Onset Date Comments Medication Refill 07/27/2012 Encounter Details Date Type Department Care Team Description 07/27/2012 [place]ill [place] [facility] [place] Bergman [place] [facility] [place] [phone] GENERAL INTERNAL MEDICINE [phone] [place], [place] [address] (Wo huey) Social History Tobacco [facility] [place], [place] [address] (Wo rk) 01/15/2022 Appointment Radiology Stiven Cervantes MD [facility] Pulmonary Medici nelly [place], [place] [address] (Wo rk) Scheduled Procedures Name Priority Associated Diagnoses Date/Time DEBRIDEMENT SKIN, SUBCU, MUSCLE, R great toe amp utation, wound LOWER EXTREMITY (WRVU 2.7) closure MODIFIER WOUND VAC R great toe amputation, wound closure documented as of this encounter Visit Diagnoses Not on filedocumented in this encounter Care Teams Developer Analyst Relationship Specialty Start Date End Date Eli Bergman MD PCP - General 11/21/11 04/20/13 [facility] GENERAL [place] [address] documented as of this encounter
--- OUTSIDE RECORDS SUMMARY | 2021-11-30 08:28 | XMS_ITS | Encounter Summary ---
:1955 Author Organization [facility] [place] [address] Care Team Providers Name Role Phone Eli Bergman MD Primary Care Provider Reason for Visit Reason Comments Depression Encounter Details Date Type Department Care Team Description 06/30/2012 Office Visit Psychiatry and Sen Gomes MD Depressive disorder, Behavioral Health at [facility] n ot elsewhere [facility] fraser ([facility] PSYCHIATRY DE PT Dx) [address] [phone] (Work) [phone] Social History Tobacco Use Types Packs/Day Years Used Date Current Every Day Smoker Cigarettes 0.25 42 Smokeless Tobacco: Former User Alcohol Use Standard Drinks/Week Comments Not Asked 0 (1 standard drink = 0.6 oz pure alcoho l) Sex Assigned at Date Recorded Not on file documented as of this encounter Progress Notes Tyson Saenz MD - 07/07/2012 5:41 PM EST I saw and evaluated the patient with [...] &/or additional findings: Major issues addressed/discussed: Patient looks good but he is on a great deal of medication, especially methylphenidate. Will monitorcarefully and consider reducing methylphenidate and/or dizepam in the future. Sen Gomes MD - 06/30/2012 12:26 PM EST ESTABLISHED ADULT PATIENT OFFICE VISIT NOTE Time Spent: 60 minutes Attendee(s): Patient This patient was seen with Dr. Tyson Saenz. See his note for confirmatory and/or revisionary documentation. HISTORY Chief Complaint: Mahni Ramos is a 56 y.o. Male presents today with anxiety and depression HPI: () Mr. Ramos is a 56 yo male w/ h/o depression, anxiety, and ADHD who had been treated by Dr. Thornton in [facility]. He reports that his current medication regimen has been very helpful in control of his symptoms, noting that he has been having a good appetite and interested in a variety of activities; he denies hoplessness and guilt. The patient reports sporadic sleep, noting this is secondary to hip and backpain. The patient notes a history of alcohol and opioid dependence, but denies recent use. He notes that his last drink of alcohol was over a year ago. He is being prescribed methadone for his chronic hip and back pain by pain medicine, but denies use of any additional narcotics. He has a history of HCV, but denies any IVDA in the past or present. He reports taking methylphenidate as prescribed, noting that this medication helps with concentration, motivation, as well as mood. The patient also reports periodic anxiety, for which he takes diazepam. He notes trials of other medications in the past, but denies that they were able to control his anxiety symptoms. Current psychotropic medications: Bupropion XL 300 mg PO Daily Methylphenidate 20 mg PO QID Diazepam 5 mg PO TID PRN anxiety Current Medications: Current Outpatient Prescriptions Medication Sig Dispense Refill ??? methadone (DOLOPHINE) 10 mg tablet Take 4 tablets by mouth 4 times daily. 224 tablet 0 ??? methylphenidate (RITALIN) 20 mg tablet Take 1 tablet by mouth 4 times daily. Replaces previous script written on 06/17 for due date 06/24 Late mail delivery to pharmacy Indications: Attention-Deficit Hyperactivity Disorder 120 tablet 0 ??? diaZEPam (VALIUM) 5 mg tablet Take 1 tablet by mouth every 8 hours as needed for Anxiety. Signedin the absence of 90 tablet 0 ??? famotidine (PEPCID) 20 mg tablet Take 1 tablet by mouth 2 times daily. 60 tablet 12 ??? amlodipine (NORVASC) 5 mg tablet Take 1 tablet by mouth daily. 90 tablet 3 ??? buPROPion (WELLBUTRIN XL) 300 mg 24 hr tablet TAKE 1 TABLET BY MOUTH ONCE DAILY 30 tablet 5 ??? atenolol (TENORMIN) 50 mg tablet Take 50 mg by mouth 2 times daily. ??? ACETAMINOPHEN/DP-HYDRAM HCL (TYLENOL PM ORAL) Take by mouth as needed. Pertinent Medication Side Effects: Denies Review of Systems: (05/13/09) Constitutional: reports mild fatigue Eyes: Denies blurry vision Cardiovascular: Denies CP Respiratory: Denies SOB GI: Denies N/V : Denies dysuria Musculoskeletal: Endorses stable back pain Integumentary: Denies rash Neurological: denies weakness Psychiatric: See HPI above Endocrine: Denies heat/cold intolerance Allergic/Immunological: See reviewed allergies PFSH: () Past Medical/Psychiatric History: - Past diagnoses: MDD-SE (296.20), ADHD, Chronic Pain, EtOH Dependence, Anxiety D/O NOS, h/o Opioid Dependence. - Past medications: Prozac, Zoloft - Past Hospitalizations: detox at [facility] - Substance abuse: h/o alcohol dependence (quit drinking around 4 years ago, doing AA over phone); h/o opioid dependence on methadone Family Psychiatric and Medical History: Denies history of depression, anxiety, bipolar, schizophrenia Social History: Living with and son, daughter, 3 grandchildren. Currently on disability, workedin [place]. EXAM [10/18/13 bullets (incl VS)] Constitutional System ? Vital Signs: There were no vitals taken for this visit. Musculoskeletal System ? Muscle Strength/Tone (note atrophy, abnormal movements): No abnormal movements noted ? Gait and Station: Dysarthric gait Psychiatric System ? General Appearance/Behavior: Casually dressed ? Speech: Slow with normal volume/tone ? Thought Process: Linear and logical ? Associations: Intact ? Abnormal Thoughts and Perceptions / Thought Content: Homicidality / Violent Thoughts: Denies Suicidality: Denies Hallucinations: Denies Delusions: Denies Obsessions: Denies ? Judgment and Insight: good ? Mood & Affect: Mild depression w/ mood congrent affect ? Orientation: AAOx4 ? Attention/Concentration: Appropriate ? Memory: Remote and recent memory intact ? Language: fluent Micronesian ? Fund of Knowledge: Grossly intact MEDICAL DECISION MAKING ASSESSMENT: Mahin Ramos is a 56 y.o. Male with depression, anxiety, and ADHD who reports stable symptoms well controlled on his current medication regimen. The patient does has a history of substance abuse and is some potentially abusive medications, but reports sobriety and good control of symptoms, and abuse of prescribed medications does not appear to be an issue. Will continue the patient's current medication regimen at this time. The patient also reports utilization of relaxation techniques learned from Dr. Thornton, and he was encouraged to continue such strategies. PLAN: - Continue Bupropion XL 300 mg PO Daily - Continue Methylphenidate 20 mg PO QID - Continue Diazepam 5 mg PO TID PRN anxiety - Continue relaxation techniques - RTC in 2-3 months documented in this encounter Plan of Treatment Upcoming Encounters Date Type Specialty Care Team Description 12/11/2021 Appointment Radiology 12/11/2021 Office Visit Orthopaedics Marion Tavera APRN [facility] ORTHOPAEDIC SURG [place], [place] [address] (Wo rk) 01/15/2022 Appointment Radiology Stiven Cervantes MD [facility] Pulmonary Medici [place], [place] [address] (Wo rk) Scheduled Procedures Name Priority Associated Diagnoses Date/Time DEBRIDEMENT SKIN, SUBCU, MUSCLE, R great toe amp utation, wound LOWER EXTREMITY (WRVU 2.7) closure MODIFIER WOUND VAC R great toe amputation, wound closure documented as of this encounter Visit Diagnoses Diagnosis Depressive disorder, not elsewhere class ified - Primary documented in this encounter Care Teams Production Line Solderer Relationship Specialty Start Date End Date Eli Bergman MD PCP - General 11/21/11 04/20/13 [facility] GENERAL [place] [address] documented as of this encounter
--- OUTSIDE RECORDS SUMMARY | 2021-11-30 08:28 | XMS_ITS | Encounter Summary ---
:1955 Author Organization [facility] [place] [address] Care Team Providers Name Role Phone Eli Bergman MD Primary Care Provider Encounter Details Date Type Department Care Team Description 04/21/2012 Telephone Psychiatry and Behavioral Azalia Costa MD [facility] at [facility] Jenni [place] [address] [place] [address] [phone] (Wo rk) Social History Tobacco Use Types Packs/Day Years Used Date Current Every Day Smoker Cigarettes 0.25 42 Smokeless Tobacco: Former User Alcohol Use Standard Drinks/Week Comments Not Asked 0 (1 standard drink = 0.6 oz pure alcoho l) Sex Assigned at Date Recorded Not on file documented as of this encounter Miscellaneous Notes Telephone Encounter - Azalia Costa MD - 04/21/2012 5:09 PM EST Called pt as I am covering for Dr. Gomes and was forwarded message re: running out of seroquel 3 weeks ago and worsening mood but received no answer and did not leave a message on the voicemail. I will forward concerns to Dr. Gomes who will be back tomorrow to f/u with pt. documented in this encounter Plan of Treatment Upcoming Encounters Date Type Specialty Care Team Description 12/11/2021 Appointment Radiology 12/11/2021 Office Visit Orthopaedics Marion Tavera APRN [facility] ORTHOPAEDIC SURG [place], [place] [address] (Wo rk) 01/15/2022 Appointment Radiology Stiven Cervantes MD [facility] Pulmonary Medici [place], [place] [address] (Wo rk) Scheduled Procedures Name Priority Associated Diagnoses Date/Time DEBRIDEMENT SKIN, SUBCU, MUSCLE, R great toe amp utation, wound LOWER EXTREMITY (WRVU 2.7) closure MODIFIER WOUND VAC R great toe amputation, wound closure documented as of this encounter Visit Diagnoses Not on filedocumented in this encounter Care Teams Surgical Dental Assistant Relationship Specialty Start Date End Date Eli Bergman MD PCP - General 11/21/11 04/20/[address] [facility] [place] [address] documented as of this encounter
--- OUTSIDE RECORDS SUMMARY | 2021-11-30 08:28 | XMS_ITS | Encounter Summary ---
:1955 Author Organization [facility] [place] [address] Care Team Providers Name Role Phone Eli Bergman MD Primary Care Provider Reason for Visit Reason Comments Follow-up Encounter Details Date Type Department Care Team Description 08/12/2012 Follow-Up Gastroenterology at [facility] Caitlin Dowling, Chronic hepatitis C (Primary Dx); [facility] Jenni hammer APRN [place] [address] [facility] [phone] [facility] DEPT[facility] [place], [place] [address] Social History Tobacco Use Types [...] Sign Reading Time Taken Comments Blood Pressure 134/76 08/12/2012 12:46 PM EDT Pulse 94 08/12/2012 12:46 PM EDT Temperature - - Respiratory Rate - - Oxygen Saturation - - Inhaled Oxygen Concentration - - Weight 92.1 kg (203 lb) 08/12/2012 12:46 PM EDT Height 175.3 cm (5' 9) 08/12/2012 12:46 PM EDT Body Mass Index 29.98 08/12/2012 12:46 PM EDT documented in this encounter Progress Notes Caitlin Dowling APRN - 08/12/2012 1:24 PM EDT Subjective: Patient ID: Mahin Ramos is [...] - INTERVAL HISTORY: Mr. Ramos Is a 56 year old male who completed 48 weeks of Peg iNterferon and Ribavirin therapy and had a viral relapse when treament was discontinued. He became undetectable at week 6, but then had a one time detectable viral load at week 9. He returns today and feels unwell, he has been having diarrhea all day. He wants to go home where hewill be more comfortable. He denies gi tract bleeding, ascites or encephalopathy. He did not have his testing requested at his last visit, I am not clear as to why this was not done. He does not want to wait to have it scheduled today as he does not feel well but prefers to have the schedulers call toschedule the appointments. 11/21/2011 abd ultrasound Ultrasound - Abdomen Complete - Summary Liver: [...] therapy. We discussed hisretreatment options today and the hope that a new drug will be released this year to treat his genotype. Would consider retreatment with the new regimen if efficacy rates are decent in relapsers. 2. Cirrhosis, will schedule surveillance abdominal ultrasound , he had some vascular abnormality described on previous doppler will repeat in May, I wonder if he has developed a portal vein thrombus. Will schedule EGD screening until May of 2012, last scope was in 2009 and was negative for varices. He will follow up in six months for ongoing surveillance. He will get a cmp, cbc, inr and afp when he returns for blood tests later this month. Will plan to see him back in six months for ongoing follow up. documented in this encounter Plan of Treatment Upcoming Encounters Date Type Specialty Care Team Description 12/11/2021 Appointment Radiology 12/11/2021 Office Visit Orthopaedics Marion Tavera APRN [facility] ORTHOPAEDIC SURG [place], [place] [address] (Wo rk) 01/15/2022 Appointment Radiology Stiven Cervantes MD [facility] Pulmonary Medici [place], [place] [address] (Wo rk) Scheduled Procedures Name Priority Associated Diagnoses Date/Time DEBRIDEMENT SKIN, SUBCU, MUSCLE, R great toe amp utation, wound LOWER EXTREMITY (WRVU 2.7) closure MODIFIER WOUND VAC R great toe amputation, wound closure documented as of this encounter Procedures Procedure Name Priority Date/Time Associated Diagnosis Comme nts UPPER GI ENDOSCOPY Routine 08/12/2012 1:48 PM EDT Chroni c hepatitis C Cirrhosis of liver documented in this encounter Visit Diagnoses Diagnosis Chronic hepatitis C - Primary Chronic hepatitis C without mention of h epatic coma Cirrhosis of liver Cirrhosis of liver without mention of al cohol documented in this encounter Care Teams Inside Sales Lead Relationship Specialty Start Date End Date Eli Bergman MD PCP - General 11/21/11 04/20/13 [facility] [place] [address] documented as of this encounter
--- OUTSIDE RECORDS SUMMARY | 2021-11-30 08:29 | XMS_ITS | Encounter Summary ---
:1955 Author Organization [facility] Address [facility] [address] [place] [address] Care Team Providers Name Role Phone Vinicio Ferris MD Primary Care Provider Reason for Visit Reason Comments GI Problem Encounter Details Date Type Department Care Team Description 03/07/2011 Follow-Up Gastroenterology at [facility] Caitlin Dowilng, Hepatitis c, chronic; [facility] Jenni [place] [address] [place] [address] [facility] [place], [place] [address] Social History Tobacco Use Types Packs/Day Years Used Date Current Some Day Smoker Cigarettes 0.5 42 Smokeless Tobacco: Former User Alcohol Use Standard Drinks/Week Comments Not Asked 0 (1 standard drink = 0.6 oz pure alcoho l) Sex Assigned at Date Recorded Not on file documented as of this encounter Last Filed Vital Signs Vital Sign Reading Time Taken Comments Blood Pressure 118/72 03/07/2011 3:08 PM EDT Pulse 63 03/07/2011 3:08 PM EDT Temperature - - Respiratory Rate - - Oxygen Saturation - - Inhaled Oxygen Concentration - - Weight 93.5 kg (206 lb 3.2 oz) 03/07/2011 3:08 PM EDT Height 175.3 cm (5' 9) 03/07/2011 3:08 PM EDT Body Mass Index 30.45 03/07/2011 3:08 PM EDT documented in this encounter Progress Notes Caitlin Dowling APRN - 03/07/2011 3:28 PM EDT Subjective: Patient ID: Soledad Wahl is a 55 y.o. male. HPI Current problem list: 1. Chronic hepatitis C w/early cirrhosis; viral load (02/16) 234,000 IU/ml; genotype:2b -unclear when acquired -RUQ 08- no evidence of cirrhosis -Liver biopsy- (07/18): ---Pathologic Diagnosis--- Liver, needle [...] Hep B status: (-)/ (-); Twinrix- (07/11/09), (08/11/09), due (01/19) HCC surveillance: -Abd. imaging: CT (06/2009) Lung [...] (04/16/2010) < 43 - INTERVAL HISTORY: Mr. Wahl Is a 55 year old male who completed 48 weeks of Peg iNterferon and Ribavirin therapy and had a viral relapse when treament was discontinued. He became undetectable at week 6, but then had a one time detectable viral load at week 9. He is feeling better off the medications and is here to discuss his future options. Review of Systems Constitutional: Negative for fever. [...] Assessment and Plan: 1. Hepatitis C genotype 1 with viral relapse post Interferon and Ribavirin therapy. WE discussed hisretreatment options today including, retreatment with triple therapy, enrolling in a clinical trial or waiting for future medications. He will discuss with his family but at this time is leaning towardretreatment with triple therapy, literature provided today. He will follow up with me in a few months with labs prior to that visit, cmp, cbc, INR, viral load and AFP. 2. Cirrhosis, will schedule surveillance abdominal ultrasound. documented in this encounter Plan of Treatment Upcoming Encounters Date Type Specialty Care Team Description 12/11/2021 Appointment Radiology 12/11/2021 Office Visit Orthopaedics Marion Tavera APRN [facility] ORTHOPAEDIC SURG [place], [place] [address] (Wo rk) 01/15/2022 Appointment Radiology Stiven Cervantes MD [facility] Pulmonary Medici [place], [place] [address] (Wo rk) Scheduled Procedures Name Priority Associated Diagnoses Date/Time DEBRIDEMENT SKIN, SUBCU, MUSCLE, R great toe amp utation, wound LOWER EXTREMITY (WRVU 2.7) closure MODIFIER WOUND VAC R great toe amputation, wound closure documented as of this encounter Results AFP tumor marker (07/08/2011 1:30 PM EST) athologist Signature AFP 5 <=19 ng/mL [facility] Specimen Anatomical Collection Method Collection Time Receive d Time (Source) Location / / Volume Laterality Blood specimen 07/08/2011 1:30 PM 012 8:07 (specimen) EST AM EST Resulting Agency Comment Spec In Lab James Aiken MD CHEMISTRY ORDERABLES Performing Organization Address City/[facility]/ZIP Code Phon e Number [address] CERNER MILLENNIUM (ABNORMAL) TSH (07/08/2011 1:30 PM EST) athologist Signature TSH 4.80 (H) 0.27 - 4.20 CERNER mcIU/mL MILLENNIUM Specimen Anatomical Collection Method Collection Time Receive d Time (Source) Location / / Volume Laterality Blood specimen 07/08/2011 1:30 PM 012 1:35 (specimen) EST PM EST Resulting Agency Comment Spec In Lab James Aiken MD CHEMISTRY ORDERABLES Performing Organization Address City/[facility]/ZIP Code Phon e Number [address] CERNER MILLENNIUM Iron and TIBC (07/08/2011 1:30 PM EST) athologist Signature Iron 82 45 - 160 CERNER mcg/dL MILLENNIUM TIBC 339 250 - 450 CERNER mcg/dL MILLENNIUM Iron Saturation 24 20 - 50 % CERNER MILLENNIUM Specimen Anatomical Collection Method Collection Time Receive d Time (Source) Location / / Volume Laterality Blood specimen 07/08/2011 1:30 PM 012 1:35 (specimen) EST PM EST Resulting Agency Comment Spec In Lab James Aiken MD CHEMISTRY ORDERABLES Performing Organization Address City/[facility]/[place] [address] CERNER MILLENNIUM Ferritin (07/08/2011 1:30 PM EST) athologist Signature Ferritin 271 30 - 400 CERNER ng/mL MILLENNIUM Comment: Pediatric reference ranges not verified at [facility], interpret with caution. Reference ranges for females greater javier n 50 years of age approach values for men, i.e., 30-400 ng/mL. Specimen Anatomical Collection Method Collection Time Receive d Time (Source) Location / / Volume Laterality Blood specimen 07/08/2011 1:30 PM 012 1:35 (specimen) EST PM EST Resulting Agency Comment Spec In Lab James Aiken MD CHEMISTRY ORDERABLES Performing Organization Address City/State/ZIP Code Phon e Number [place] [phone] CERNER MILLENNIUM (ABNORMAL) Comprehensive metabolic panel (non-fasting) (07/08/2011 1:30 PM EST) P athologist Signature Glucose Lvl 71 60 - 199 CERNER mg/dL MILLENNIUM Comment: Diabetes: >=200 mg/dL plus symp toms BUN 13 10 - 20 mg/dL CERNER MILLENNIU M Creatinine 1.14 0.80 - 1.50 mg/dL CERNER MILL ENNIUM Sodium 139 135 - 145 mmol/L CERNER GERBER NIUM Potassium 4.0 3.5 - 5.0 mmol/L CERNER GERBER NIUM Comment: Please note: ??Patients with WBC >100,00 0 may have falsely elevated Potassium levels. ??For accurate Potassium quantif ication in these patients send serum separator tube (gold top) for subsequent determinations. ??Contact the Clinical Chemistry Laboratory if there are any qu estions. Chloride 105 98 - 107 mmol/L CERNER MILLENN IUM CO2 22 22 - 31 mmol/L CERNER MILLENNI UM Anion Gap 12 5 - 15 mmol/L CERNER MILLENNIU M Calcium 9.2 8.5 - 10.5 mg/dL CERNER GERBER NIUM Total Protein 7.3 6.4 - 8.3 gm/dL CERNER MIL LENNIUM Albumin 4.4 3.2 - 5.2 gm/dL CERNER MILLENN IUM AST 42 (H) 0 - 39 unit/L CERNER MILLENNIU M ALT 31 0 - 55 unit/L CERNER MILLENNIU M Alk Phos 114 40 - 120 unit/L CERNER MILLENN IUM [...] multiply eGFR by 1.2. The MDRD equation has not been validated for pedi atric patients and is only valid for patients with age >= 18 years. At present, NKDEP does NOT recommend usi [...] kidney disease. References: http://nkdep.nih.gov/resources/NKDEP_Sug gestn4Labs_0606_508.pdf http://www.kidney.org/professionals/kls/ pdf/faq_gfr.pdf Specimen Anatomical Collection Method Collection Time Receive d Time (Source) Location / / Volume Laterality Blood specimen 07/08/2011 1:30 PM 012 1:35 (specimen) EST PM EST Resulting Agency Comment Spec In Lab James Aiken MD CHEMISTRY ORDERABLES Performing Organization Address City/State/[place] [address] CERNER MILLENNIUM (ABNORMAL) CBC (with Diff) (07/08/2011 1:30 PM EST) P athologist Signature WBC 9.4 4.0 - 10.0 CERNER x10(3)/mcL MILLENNIUM RBC 3.74 (L) 4.63 - CERNER 6.08 MILLENNIUM x10(6)/mcL Hemoglobin 13.0 (L) 13.7 - CERNER 17.5 gm/dL MILLENNIUM Hematocrit 37.6 (L) 40.0 - CERNER 51.0 % MILLENNIUM MCV 100.5 (H) 79.0 - CERNER 92.0 fL MILLENNIUM MCH 34.8 (H) 25.6 - CERNER 32.2 pg [facility] MCHC 34.6 32.0 - CERNER 36.5 gm/dL [facility] Platelets 237 145 - 370 CERNER x10(3)/mcL [facility] RDWSD 51.1 (H) 35.0 - CERNER 46.0 fL [facility] RDWCV 13.9 10.9 - CERNER 14.4 % [facility] MPV 9.8 9.0 - 12.0 CERNER fL MILLENNIUM Specimen Anatomical Collection Method Collection Time Receive d Time (Source) Location / / Volume Laterality Blood specimen 07/08/2011 1:30 PM 012 1:35 (specimen) EST PM EST Resulting Agency Comment Spec In Lab James Aiken MD HEMATOLOGY ORDERABLES Performing Organization Address City/State/[place] [address] [facility] US abdomen complete (05/10/2011 10:47 AM EST) Anatomical Region Laterality Modality Abdomen, Vascular Ultrasound Specimen (Source) Anatomical Collection Method Collection Time Re ceived Time Location / / Volume Laterality 05/10/2011 10:47 AM EST Narrative 05/10/2011 11:39 AM EST ?Abdomin al ? (Signed Final 05/10/2011 11 :38 am) Patient Info ID: ? [id number] ? : ??[birth year] (55 yrs) Name: ? SOLEDAD Alvin WAHL ?Visit Date: 05/10/2011 10:40 am Performed By Performed By: ?Vonda Power Associate: ? Juan DYSON, Katey Molina Attending: ? Mehul DYSON, Edi Santiago. Referred By: ? Caitlin Dowling, LISA Service(s) Provided [facility] - Abdominal Complete Survey - [phone] [id number] ? [id number] Indications Cirrhosis ----- Liver ----- Right Lobe Length: ?? 17.1 ?? cm Echogenicity/Echotexture: ?? Increased Comment: ?No focal hepatic lesion s een. Gallbladder Cholelithiasis: ?No stones visua lized Wall Thickness: ?1.7 mm Focal Tenderness: ?No positive Murp hy's sign Comment: ?slightly irregular GB wal l suggesting possible ? Cholesterolosis Biliary Tract Intrahepatic Ducts: ?? Normal Extrahepatic Ducts: ?? Normal Common Duct Size: ? 2.9 ? mm -------- Pancreas -------- Head: ? Poorly visua lized due to overlying bowel Tail: ? Poorly visua lized due to overlying bowel Body: ? Poorly visua lized due to overlying bowel. ------ Spleen ------ Size (cm) ?L: ??10.1 Comment: ?Normal appearance Right Kidney Size (cm) ?L: ??11.3 Cortical Thickness: ?Normal Cortical Echogenicity: ?? Normal Hydronephrosis: ?No sonogr aphic evidence Left Kidney Size (cm) ?L: ??11 Cortical Thickness: ?Normal Cortical Echogenicity: ?? Normal Hydronephrosis: ?No sonogr aphic evidence ----- Aorta ----- Measurements (cm): Proximal ? AP: ?? 2 Comment: ?Normal in caliber --- IVC --- Normal in caliber, where visualized Impression Ultrasound - Abdomen Complete - Summary Mildly coarsened echogenic liver parenc hyma consistent with history of cirrhosis. ? ?No hepatic mass visualized. Possible choleseterolosis of the gall b ladder wall. No ascites, splenomegaly or abnormal co llateral vessels to suggest portal hypertension. I ??viewed the images and agree with souleymane beyer above interpretation. Thank you for allowing us to participat e in the care of SOLEDAD WAHL. Please do not hesitate to call if you have any questions. ? Edi smyth MD Electronically Signed Final Report ?? 11:38 am Film and interpretation reviewed by the attending Procedure Note Edi Carver MD - 05/10/2011Format ting of this note might be different from the original. Abdominal (Signed Final 05/10/2011 11:38 am) Patient Info ID: [id number] : [birth year] (55 yrs ) Name: SOLEDAD WAHL Visit Date: 2010 10:40 am Performed By Performed By: Vonda Power Associate: Juan DYSON, Katey Molina Attending: Edi Carver MD Referred By: Caitlin Dowling APRN Service(s) Provided [facility] - Abdominal Complete Survey - [phone] [id number] Indications Cirrhosis ----- Liver ----- Right Lobe Length: 17.1 cm Echogenicity/Echotexture: Increased Comment: No focal hepatic lesion seen. Gallbladder Cholelithiasis: No stones visualized Wall Thickness: 1.7 mm Focal Tenderness: No positive Blair's sign Comment: slightly irregular GB wall sug gesting possible Cholesterolosis Biliary Tract Intrahepatic Ducts: Normal Extrahepatic Ducts: Normal Common Duct Size: 2.9 mm -------- Pancreas -------- Head: Poorly visualized due to overlyin g bowel Tail: Poorly visualized due to overlyin g bowel Body: Poorly visualized due to overlyin g bowel. ------ Spleen ------ Size (cm) L: 10.1 Comment: Normal appearance Right Kidney Size (cm) L: 11.3 Cortical Thickness: Normal Cortical Echogenicity: Normal Hydronephrosis: No sonographic evidence Left Kidney Size (cm) L: 11 Cortical Thickness: Normal Cortical Echogenicity: Normal Hydronephrosis: No sonographic evidence ----- Aorta ----- Measurements (cm): Proximal AP: 2 Comment: Normal in caliber --- IVC --- Normal in caliber, where visualized Impression Ultrasound - Abdomen Complete - Summary Mildly coarsened echogenic liver parenc hyma consistent with history of cirrhosis. N o hepatic mass visualized. Possible choleseterolosis of the gall b ladder wall. No ascites, splenomegaly or abnormal co llateral vessels to suggest portal hypertension. I viewed the images and agree with the above interpretation. Thank you for allowing us to participat e in the care of SOLEDAD WAHL. Please do not hesitate to call if you have any questions. Edi Carver MD Electronically Signed Final Report 05/10 11:38 am Film and interpretation reviewed by the attending James Aiken MD IMG US GEN ORDERABLES documented in this encounter Visit Diagnoses Diagnosis Hepatitis C, chronic Chronic hepatitis C without mention of h epatic coma Cirrhosis Cirrhosis of liver without mention of al cohol Hepatitis C, chronic Chronic hepatitis C without mention of h epatic coma Cirrhosis Cirrhosis of liver without mention of al cohol documented in this encounter Care Teams Real Estate Administrator Relationship Specialty Start Date End Date Vinicio Ferris MD PCP - General 10/18/10 11/20/11 [facility] [place] [address] documented as of this encounter
--- OUTSIDE RECORDS SUMMARY | 2021-11-30 08:29 | XMS_ITS | Encounter Summary ---
:1955 Author Organization [facility] [place] [address] Care Team Providers Name Role Phone Vinicio Ferris MD Primary Care Provider Reason for Visit Reason Onset Date Comments Medication Refill 05/07/2011 Encounter Details Date Type Department Care Team Description 05/07/2011 Refill Internal Medicine at [facility] Dalia Antunez Pain (Primary Dx) [facility] [place] [address] Social History Tobacco Use Types Packs/Day [...] APRN [facility] ORTHOPAEDIC SURG [place], [place] [address] (Wo rk) 01/15/2022 Appointment Radiology Stiven Cervantes MD [facility] Pulmonary Medici nelly [place], [place] [address] (Wo rk) Scheduled Procedures Name Priority Associated Diagnoses Date/Time DEBRIDEMENT SKIN, SUBCU, MUSCLE, R great toe amp utation, wound LOWER EXTREMITY (WRVU 2.7) closure MODIFIER WOUND VAC R great toe amputation, wound closure documented as of this encounter Visit Diagnoses Diagnosis Pain - Primary Generalized pain documented in this encounter Care Teams Cable Mechanic Relationship Specialty Start Date End Date Vinicio Ferris MD PCP - General 10/18/10 11/20/11 [facility] [place] [address] documented as of this encounter
--- OUTSIDE RECORDS SUMMARY | 2021-11-30 08:29 | XMS_ITS | Encounter Summary ---
:1955 Author Organization [facility] [place] [address] Care Team Providers Name Role Phone Vinicio Ferris MD Primary Care Provider Reason for Visit Reason Onset Date Comments Medication Refill 07/03/2011 Encounter Details Date Type Department Care Team Description 07/03/2011 Refill Internal Medicine at [facility] Dalia Antunez Pain (Primary Dx) [facility] [place] [address] Social History Tobacco Use Types Packs/Day [...] Office Visit Orthopaedics Marion Tavera APRN [facility] ORTHOPAEDIC SURG [place], [place] [address] (Wo rk) 01/15/2022 Appointment Radiology Stiven Cervantes MD [facility] Pulmonary Medici nelly [place], [place] [address] (Wo rk) Scheduled Procedures Name Priority Associated Diagnoses Date/Time DEBRIDEMENT SKIN, SUBCU, MUSCLE, R great toe amp utation, wound LOWER EXTREMITY (WRVU 2.7) closure MODIFIER WOUND VAC R great toe amputation, wound closure documented as of this encounter Visit Diagnoses Diagnosis Pain - Primary Generalized pain documented in this encounter Care Teams Glass Sagger Relationship Specialty Start Date End Date Vinicio Ferris MD PCP - General 10/18/10 11/20/11 [facility] [place] [address] documented as of this encounter
--- OUTSIDE RECORDS SUMMARY | 2021-11-30 08:29 | XMS_ITS | Encounter Summary ---
:1955 Author Organization [facility] [place] [address] Care Team Providers Name Role Phone Vinicio Ferris MD Primary Care Provider Reason for Visit Reason Onset Date Comments Medication Refill 03/29/2011 Encounter Details Date Type Department Care Team Description 03/29/2011 Refill Internal Medicine [place] [facility] Jazmin Monsivais MD Pain (Primary Dx) [place] [phone] GENERAL INTERNAL [phone] MEDICINE [place], [place] [address] (Wo rk) Social History Tobacco Use Types Packs/Day Years Used Date Current Some Day Smoker Cigarettes 0.5 42 Smokeless Tobacco: Former User Alcohol Use Standard Drinks/Week Comments Not Asked 0 (1 standard drink = 0.6 oz pure alcoho l) Sex Assigned at Date Recorded Not on file documented as of this encounter Miscellaneous Notes Telephone Encounter - Dalia Antunez RN - 03/29/2011 10:20 AM EST Previous rx generated was destroyed due to PCP being unavailable to sign. New rx generated for Attending to sign. documented in this encounter Plan of Treatment Upcoming Encounters Date Type Specialty Care Team Description 12/11/2021 Appointment Radiology 12/11/2021 Office Visit Orthopaedics Marion Tavera APRN [facility] ORTHOPAEDIC SURG [place], [place] [address] (Wo rk) 01/15/2022 Appointment Radiology Stiven Cervantes MD [facility] Pulmonary Medici [place], [place] [address] (Wo rk) Scheduled Procedures Name Priority Associated Diagnoses Date/Time DEBRIDEMENT SKIN, SUBCU, MUSCLE, R great toe amp utation, wound LOWER EXTREMITY (WRVU 2.7) closure MODIFIER WOUND VAC R great toe amputation, wound closure documented as of this encounter Visit Diagnoses Diagnosis Pain - Primary Generalized pain documented in this encounter Care Teams Lathe Sander Relationship Specialty Start Date End Date Vinicio Ferris MD PCP - General 10/18/10 11/20/11 [facility] GENERAL [place] [address] documented as of this encounter
--- OUTSIDE RECORDS SUMMARY | 2021-11-30 08:29 | XMS_ITS | Encounter Summary ---
:1955 Author Organization [facility] [address] Care Team Providers Name Role Phone Vinicio Ferris MD Primary Care Provider Reason for Visit Reason Onset Date Comments Other 06/27/2011 Cancellation Less Th an 24 Hours Encounter Details Date Type Department Care Team Description 06/27/2011 Telephone Psychiatry and Shivani Thornton MD Other (Cancellation Behavioral Health at [facility] L ess Than 24 Hours) [facility] [place] [address] [place] [address] [phone] Social History Tobacco Use Types Packs/Day Years Used Date Current Some Day Smoker Cigarettes 0.25 42 Smokeless Tobacco: Former User Alcohol Use Standard Drinks/Week Comments Not Asked 0 (1 standard drink = 0.6 oz pure alcoho l) Sex Assigned at Date Recorded Not on file documented as of this encounter Miscellaneous Notes Telephone Encounter - Shivani Thornton MD - 06/27/2011 1:50 PM EST Pt. cancelled appointment on day of appointment. Transportation problems. documented in this encounter Plan of Treatment Upcoming Encounters Date Type Specialty Care Team Description 12/11/2021 Appointment Radiology 12/11/2021 Office Visit Orthopaedics Marion Tavera , GRADUATE RN [facility] ER DR ORTHOPAEDIC SURG [place], [place] [address] (Wo rk) 01/15/2022 Appointment Radiology Stiven Cervantes MD [facility] Pulmonary Medici [place], [place] [address] (Wo rk) Scheduled Procedures Name Priority Associated Diagnoses Date/Time DEBRIDEMENT SKIN, SUBCU, MUSCLE, R great toe amp utation, wound LOWER EXTREMITY (WRVU 2.7) closure MODIFIER WOUND VAC R great toe amputation, wound closure documented as of this encounter Visit Diagnoses Not on filedocumented in this encounter Care Teams Field Marketing Team Leader Relationship Specialty Start Date End Date Vinicio Ferris MD PCP - General 10/18/10 11/20/11 [facility] [place] [address] documented as of this encounter
--- OUTSIDE RECORDS SUMMARY | 2021-11-30 08:29 | XMS_ITS | Encounter Summary ---
:1955 [place] [address] Care Team Providers Name Role Phone Vinicio Ferris MD Primary Care Provider Reason for Visit Reason Onset Date Comments Medication Refill 03/29/2011 Encounter Details Date Type Department Care Team Description 03/29/2011 Refill Internal Medicine at [facility] Jazmin Monsivais MD [facility] [place] [phone] GENERAL INTERNAL MEDICINE [phone] [place], [place] [address] (Wo rk) Social History Tobacco [...] Tavera APRN [facility] ORTHOPAEDIC SURG [place], [place] [address] (Wo rk) 01/15/2022 Appointment Radiology Stiven Cervantes MD [facility] Pulmonary Medici nelly [place], [place] [address] (Wo rk) Scheduled Procedures Name Priority Associated Diagnoses Date/Time DEBRIDEMENT SKIN, SUBCU, MUSCLE, R great toe amp utation, wound LOWER EXTREMITY (WRVU 2.7) closure MODIFIER WOUND VAC R great toe amputation, wound closure documented as of this encounter Visit Diagnoses Not on filedocumented in this encounter Care Teams Lens Inspector Relationship Specialty Start Date End Date Vinicio Ferris MD PCP - General 10/18/10 11/20/11 [facility] GENERAL [place] [address] documented as of this encounter
--- OUTSIDE RECORDS SUMMARY | 2021-11-30 08:29 | XMS_ITS | Encounter Summary ---
:1955 Author Organization [place] [address] Care Team Providers Name Role Phone Vinicio Ferris MD Primary Care Provider Reason for Visit Reason Onset Date Comments Medication Refill 02/18/2011 Encounter Details Date Type Department Care Team Description 02/18/[address] [facility] LAnusha Serrano, Pain (Primary Dx) [facility] [place] [address] [facility] [phone] [facility] [place], [place] [address] (Wo rk) Social History Tobacco [...] [facility] ER ORTHOP[facility]IC SURG [place], [place] [address] (Wo rk) 01/15/2022 Appointment Radiology Stiven Cervantes MD [facility] er Pulmonary Medici nelly [place], [place] [address] (Wo rk) Scheduled Procedures Name Priority Associated Diagnoses Date/Time DEBRIDEMENT SKIN, SUBCU, MUSCLE, R great toe amp utation, wound LOWER EXTREMITY (WRVU 2.7) closure MODIFIER WOUND VAC R great toe amputation, wound closure documented as of this encounter Visit Diagnoses Diagnosis Pain - Primary Generalized pain documented in this encounter Care Teams Roof Fixer Relationship Specialty Start Date End Date Vinicio Ferris MD PCP - General 10/18/10 11/20/11 [facility] [place] [address] documented as of this encounter
--- OUTSIDE RECORDS SUMMARY | 2021-11-30 08:29 | XMS_ITS | Encounter Summary ---
:1955 Author Organization [facility] Address [facility] [place] [address] Care Team Providers Name Role Phone Vinicio Ferris MD Primary Care Provider Reason for Visit Reason Onset Date Comments Medication Refill 04/22/2011 Encounter Details Date Type Department Care Team Description 04/22/2011 Refill Internal Medicine at [facility] Dalia Antunez, [facility] [place] [address] Social History Tobacco Use Types Packs/Day [...] [facility] ORTHOP[facility]IC SURG [place], [place] [address] (Wo rk) 01/15/2022 Appointment Radiology Stiven Cervantes MD [facility] Pulmonary Medici nelly [place], [place] [address] (Wo rk) Scheduled Procedures Name Priority Associated Diagnoses Date/Time DEBRIDEMENT SKIN, SUBCU, MUSCLE, R great toe amp utation, wound LOWER EXTREMITY (WRVU 2.7) closure MODIFIER WOUND VAC R great toe amputation, wound closure documented as of this encounter Visit Diagnoses Not on filedocumented in this encounter Care Teams Hot Dipper Relationship Specialty Start Date End Date Vinicio Ferris MD PCP - General 10/18/10 11/20/11 [facility] GENERAL [place] [address] documented as of this encounter
--- OUTSIDE RECORDS SUMMARY | 2021-11-30 08:29 | XMS_ITS | Encounter Summary ---
:1955 Author Organization [facility] [place] [address] Care Team Providers Name Role Phone Vinicio Ferris MD Primary Care Provider Reason for Visit Reason Onset Date Comments Medication Refill 06/03/2011 Encounter Details Date Type Department Care Team Description 06/03/2011 Refill Internal Medicine at [facility] Dalia Antunez Pain (Primary Dx) [facility] [place] [address] Social History Tobacco Use Types Packs/Day [...] APRN [facility] ORTHOPAEDIC SURG [place], [place] [address] (Wo rk) 01/15/2022 Appointment Radiology Stiven Cervantes MD [facility] Pulmonary Medici nelly [place], [place] [address] (Wo rk) Scheduled Procedures Name Priority Associated Diagnoses Date/Time DEBRIDEMENT SKIN, SUBCU, MUSCLE, R great toe amp utation, wound LOWER EXTREMITY (WRVU 2.7) closure MODIFIER WOUND VAC R great toe amputation, wound closure documented as of this encounter Visit Diagnoses Diagnosis Pain - Primary Generalized pain documented in this encounter Care Teams Tram Inspector Relationship Specialty Start Date End Date Vinicio Ferris MD PCP - General 10/18/10 11/20/11 [facility] [place] [address] documented as of this encounter
--- OUTSIDE RECORDS SUMMARY | 2021-11-30 08:29 | XMS_ITS | Encounter Summary ---
:1955 Author Organization [facility] [place] [address] Care Team Providers Name Role Phone Vinicio Ferris MD Primary Care Provider Reason for Visit Reason Onset Date Comments Back Pain 08/05/2011 Encounter Details Date Type Department Care Team Description 08/05/2011 Telephone Internal Medicine at [facility] [place] [address] Social History Tobacco Use Types Packs/Day Years Used Date Current Some Day Smoker Cigarettes 0.25 42 Smokeless Tobacco: Former User Alcohol Use Standard Drinks/Week Comments Not Asked 0 (1 standard drink = 0.6 oz pure alcoho l) Sex Assigned at Date Recorded Not on file documented as of this encounter Miscellaneous Notes Telephone Encounter - Valdo Rodriguez RN - 08/05/2011 12:27 PM EDT 08/05/11 Patient called C/O back pain which radiates down his legs. Has long history of pain. On quite afew meds. 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 Script for this is at [employer]. Patient also states he has hepatitis. Not sure if this could be Effecting his back. Plan: Appointment today . Patient aware. documented in this encounter Plan of Treatment Upcoming Encounters Date Type Specialty Care Team Description 12/11/2021 Appointment Radiology 12/11/2021 Office Visit Orthopaedics Marion Tavera APRN [facility] DR ORTHOPAEDIC SURG [place], [place] [address] (Wo rk) 01/15/2022 Appointment Radiology Stiven Cervantes MD [facility] Pulmonary Medici [place], [place] [address] (Wo rk) Scheduled Procedures Name Priority Associated Diagnoses Date/Time DEBRIDEMENT SKIN, SUBCU, MUSCLE, R great toe amp utation, wound LOWER EXTREMITY (WRVU 2.7) closure MODIFIER WOUND VAC R great toe amputation, wound closure documented as of this encounter Visit Diagnoses Not on filedocumented in this encounter Care Teams Fiber Worker Relationship Specialty Start Date End Date Vinicio Ferris MD PCP - General 10/18/10 11/20/11 [facility] [place] [address] documented as of this encounter
--- OUTSIDE RECORDS SUMMARY | 2021-11-30 08:29 | XMS_ITS | Encounter Summary ---
:1955 Author Organization [facility] [place] [address] Care Team Providers Name Role Phone Vinicio Ferris MD Primary Care Provider Encounter Details Date Type Department Care Team Description 02/04/2011 Hospital Encounter Laboratory James Aiken Hepatitis c, [facility] MD Milka [facility] [address] GASTROENTEROLOGY [phone] [place] [id number] Social History Tobacco Use Types Packs/Day Years [...] Take 4 tablets by 224 tablet 0 01/1102/18/2011 mg tabletIndications: Pain mouth 4 times daily for 14 days. atenolol (TENORMIN) 50 mg Take 50 mg by 0 07/27/2012 tablet mouth 2 times daily. methylphenidate (RITALIN) Take 1 tablet by 120 tablet 0 01/1102/26/2011 20 mg tablet mouth 4 times daily. For ADHD. amlodipine (NORVASC) 5 mg Take 1 tablet by 30 tablet 0 01/1002/25/2011 tabletIndications: mouth daily for 30 Hypertension days. buPROPion (WELLBUTRIN XL) Take 1 tablet by 30 tablet 5 12/1108/06/2011 300 mg 24 hr tablet mouth daily. diaZEPam (VALIUM) 5 mg Take 1 tablet by 90 tablet 5 011 08/01/2011 tablet mouth 3 times daily as needed for Anxiety. ACETAMINOPHEN/DP-HYDRAM Take 2 tablets by 0 08/1608/21/2012 HCL (TYLENOL PM ORAL) mouth nightly as needed. triamcinolone (KENALOG) 1 Appl(s), Top, 0 011 03/07/2011 0.025 % cream Twice daily documented as of this encounter Plan of Treatment Upcoming Encounters Date Type Specialty Care Team Description 12/11/2021 Appointment Radiology 12/11/2021 Office Visit Orthopaedics Marion Tavera APRN [facility] MEDICAL [facility] ER ORTHOPAEDIC SURG [place], [place] [address] (Wo rk) 01/15/2022 Appointment Radiology Stiven Cervantes MD [facility] Medical [facility] er Pulmonary Medici [place], [place] [address] (Wo rk) Scheduled Procedures Name Priority Associated Diagnoses Date/Time DEBRIDEMENT SKIN, SUBCU, MUSCLE, R great toe amp utation, wound LOWER EXTREMITY (WRVU 2.7) closure MODIFIER WOUND VAC R great toe amputation, wound closure documented as of this encounter Procedures Procedure Name Priority Date/Time Associated Diagnosis Comme nts HCV QUANT Routine 02/04/2011 12:39 PM Results for this EDT procedure are i n the results section. HEPATITIS C RNA, Routine 02/04/2011 12:25 PM Hepatitis c, chronometer assembler nadia QUANTITATIVE, PCR EDT documented in this encounter Results HCV QUANT (02/04/2011 12:39 PM EDT) Component Value Ref Test Analysis Performed At [facility] Range Method Time Signature HCV Viral [id number] IU/mL CERNER Load [facility] HCV Viral Result: [id number] CERNER Load [facility] Indication for Study: Hepatitis C Infection Analysis: A quantitiative real time reverse transcriptase PC R assay was performed on extracted viral RNA for the purpose of quantifi cation. Sample: plasma (0.5 mL minimun volume) Method: Agustin Jessica TaqMAN 48 HCV Linear Range: 43IU/mL - 69,000,000IU/mL (95% CI) Interpretation: The result of this analysis is w ithin the limits of detection of the assay. Note: This assay is being pe rformed in the [facility] Molecular Pathology Laboratory. Endy Bliss, Ph.D. Director, Molecular Pathology Comment: [VERIFIED DATE]02.07.11 Verified By:Leila Judd (Electronic Signature) Specimen Anatomical Collection Method Collection Time Receive d Time (Source) Location / / Volume Laterality Blood specimen 02/04/2011 12:39 1 8:36 (specimen) PM EDT AM EDT James Aiken MD HEMATOLOGY ORDERABLES Performing Organization Address City/State/[place] [address] [facility] documented in this encounter Visit Diagnoses Diagnosis Hepatitis C, chronic Chronic hepatitis C without mention of h epatic coma documented in this encounter Care Teams Environmental Research Scientist Relationship Specialty Start Date End Date Vinicio Ferris MD PCP - General 10/18/10 11/20/11 [facility] GENERAL [place] [address] documented as of this encounter
--- OUTSIDE RECORDS SUMMARY | 2021-11-30 08:29 | XMS_ITS | Encounter Summary ---
:1955 Author Organization [facility] [place] [address] Care Team Providers Name Role Phone Vinicio Marte MD Primary Care Provider Encounter Details Date Type Department Care Team Description 03/05/2011 Office Visit Psychiatry and Shivani Thornton MD Major depressive Behavioral Health at [facility] ana pradhan, single [facility] episode, unspecified [facility] PSYCHIATRY DE PT. (Primary Dx) [address] [phone] (Work) [phone] Social History Tobacco Use Types Packs/Day Years Used Date Current Some Day Smoker Cigarettes 0.5 42 Smokeless Tobacco: Former User Alcohol Use Standard Drinks/Week Comments Not Asked 0 (1 standard drink = 0.6 oz pure alcoho l) Sex Assigned at Date Recorded Not on file documented as of this encounter Last Filed Vital Signs Vital Sign Reading Time Taken Comments Blood Pressure 131/74 03/05/2011 1:05 PM EDT Pulse - - Temperature - - Respiratory Rate - - Oxygen Saturation - - Inhaled Oxygen Concentration - - Weight 91.6 kg (202 lb) 03/05/2011 1:05 PM EDT Height 172.7 cm (5' 8) 03/05/2011 1:05 PM EDT Body Mass Index 30.71 03/05/2011 1:05 PM EDT documented in this encounter Progress Notes Shivani Thornton MD - 03/05/2011 1:08 PM EDT Individual Psychotherapy with EM Office Visit (CPT 38100 (30 min), 76097 (60 min)/KARLEY 5420) (* = required item) *Length of Service: 60 minutes *Interval Hx: Just started sweating in waiting area. 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 Putting extension on outside of house to reduce snow mounding. Son doing some of the work. Feeling good today. 35 anniversary today. No EtOH since last appointment. No desire to drink. Taking 2-3 Valium/day. Thinking about his mmdjamh-[id number] dying, what he should have done when akbyjbn-as-qul called. Most recent bupropion was a new generic, didn't seem effective (irritable). Will be getting previouskind of generic at next refill. *Therapeutic Intervention Used (e.g., insight-oriented, supportive, behavioral modification) and Patient's Response: [place] [facility] plus Medication Management (chosen because this seems best approach to facilitate change). We discussed This, too, shall pass. *Pertinent Med SE: none. 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 Talkative. Mood/Affect: Smiling, well-toned. Thoughts (including *Suicidal/Homicidal Thoughts/Plans): No SI/HI. Other Pertinent Exam: *A (including Diagnosis): 55 y.o. male with MDD-SE (296.20), ADHD, Chronic Pain, EtOH Dependence, Anxiety D/O NOS, h/o Opioid Dependence. Doing better this week. Target Sx: depressed mood, poor self-image, anxiety/worry. Progress to Goal Achievement: Pt. feeling much better, with improved self-esteem. Outcome Monitoring Methods: patient's subjective reports, patient's mental status. P: 1) Medication Change(s) (Current meds continued if no med changes listed): We discussed diazepam,not taking none on any given day at this point (d/t risk of withdrawal). Follow-Up Appt: *Coordination of Care: Pt. requests no notes be sent to VINICIO MARTE MD (PCP) (aware that he can read them in eD-H) (pt. understands that this will continue until/less s/he requests otherwise) documented in this encounter Plan of Treatment Upcoming Encounters Date Type Specialty Care Team Description 12/11/2021 Appointment Radiology 12/11/2021 Office Visit Orthopaedics Marion Tavera APRN [facility] DR ORTHOPAEDIC SURG [place], [place] [address] (Wo rk) 01/15/2022 Appointment Radiology Stiven Cervantes MD [facility] Pulmonary Medici [place], [place] [address] (Wo rk) Scheduled Procedures Name Priority Associated Diagnoses Date/Time DEBRIDEMENT SKIN, SUBCU, MUSCLE, R great toe amp utation, wound LOWER EXTREMITY (WRVU 2.7) closure MODIFIER WOUND VAC R great toe amputation, wound closure documented as of this encounter Visit Diagnoses Diagnosis Major depressive disorder, single episod e, unspecified - Primary documented in this encounter Care Teams Yardage Estimator Relationship Specialty Start Date End Date Vinicio Marte MD PCP - General 10/18/10 11/20/11 [facility] [place] [address] documented as of this encounter
--- OUTSIDE RECORDS SUMMARY | 2021-11-30 08:29 | XMS_ITS | Encounter Summary ---
:1955 Author Organization [facility] Address [facility] [place] [address] Care Team Providers Name Role Phone Vinicio Ferris MD Primary Care Provider Reason for Visit Reason Comments Medication Refill Encounter Details Date Type Department Care Team Description 02/25/2011 [facility] (Primary [facility] Dx) [facility] [address] [place] [address] MEDICINE [phone] [place], [place] [address] (Wo rk) Social History Tobacco [...] [facility] ER [place]EDIC [place], [place] [address] (Wo rk) 01/15/2022 Appointment Radiology Stiven Cervantes MD [facility] Pulmonary Medici nelly [place], [place] [address] (Wo rk) Scheduled Procedures Name Priority Associated Diagnoses Date/Time DEBRIDEMENT SKIN, SUBCU, MUSCLE, R great toe amp utation, wound LOWER EXTREMITY (WRVU 2.7) closure MODIFIER WOUND VAC R great toe amputation, wound closure documented as of this encounter Visit Diagnoses Diagnosis Hypertension - Primary Unspecified essential hypertension documented in this encounter Care Teams Control Panel Assembler Relationship Specialty Start Date End Date Vinicio Ferris MD PCP - General 10/18/10 11/20/11 [facility] [place] [address] documented as of this encounter
--- OUTSIDE RECORDS SUMMARY | 2021-11-30 08:29 | XMS_ITS | Encounter Summary ---
:1955 Author Organization [facility] [place] [address] Care Team Providers Name Role Phone Vinicio Ferris MD Primary Care Provider Encounter Details Date Type Department Care Team Description 02/04/2011 Hospital Encounter Laboratory Jazmin Monsivais MD Elevated serum [facility] [address] [place] GENERAL INTERNAL [address] MEDICINE [phone] [place], [place] [address] Social History Tobacco Use Types [...] APRN [facility] ORTHOPAEDIC SURG [place], [place] 0[address] (Wo rk) 01/15/2022 Appointment Radiology Stiven Cervantes MD [facility] Pulmonary Medici [place], [place] [address] (Wo rk) Scheduled Procedures Name Priority Associated Diagnoses Date/Time DEBRIDEMENT SKIN, SUBCU, MUSCLE, R great toe amp utation, wound LOWER EXTREMITY (WRVU 2.7) closure MODIFIER WOUND VAC R great toe amputation, wound closure documented as of this encounter Procedures Procedure Name Priority Date/Time Associated Diagnosis Comme nts PROTEIN Routine 02/04/2011 12:39 PM Elevated serum Result s for this ELECTROPHORESIS, EDT creatinine procedure a re in SERUM the results section. BASIC METABOLIC Routine 02/04/2011 12:39 PM Elevated serum Res ults for this PANEL (NON-FASTING) EDT creatinine procedur e are in the results section. documented in this encounter Results (ABNORMAL) Protein Electrophoresis, serum (02/04/2011 12:39 PM EDT) [facility] Method Time Signature Total Prot 7.1 6.1 - 8.0 CERNER Elec gm/dL MILLENNIUM Albumin Elect 4.31 3.60 - 6.00 CERNER gm/dL MILLENNIUM Alpha1-Globul 0.20 0.10 - 0.30 CERNER in gm/dL MILLENNIUM Alpha2-Globul 0.93 (H) 0.40 - 0.90 CERNER in gm/dL MILLENNIUM Beta Globulin 0.78 0.50 - 1.00 CERNER gm/dL MILLENNIUM Gamma 0.88 0.50 - 1.30 CERNER Globulin gm/dL MILLENNIUM M1 Band None None CERNER Detected Detected MILLENNIUM gm/dL Scan See Note CERNER MILLENNIUM Comment: Please see scanned report in art Review under the [facility] Laboratory Heading. Specimen Anatomical Collection Method Collection Time Receive d Time (Source) Location / / Volume Laterality Blood specimen 02/04/2011 12:39 1 (specimen) PM EDT 12:44 PM EDT Narrative This result has an attachment that is no t available. Jazmin Monsivais MD CHEMISTRY ORDERABLES Performing Organization Address City/State/[place] [address] CERNER MILLENNIUM Basic Metabolic Panel (non-fasting) (02/04/2011 12:39 PM EDT) P athologist Signature Glucose Lvl 101 60 - 199 CERNER mg/dL MILLENNIUM Comment: Diabetes: >=200 mg/dL plus symp toms BUN 11 10 - 20 mg/dL CERNER MILLENNIU M Creatinine 1.00 0.80 - 1.50 mg/dL CERNER MILL ENNIUM Sodium 136 135 - 145 mmol/L CERNER GERBER NIUM Potassium 3.5 3.5 - 5.0 mmol/L CERNER GERBER NIUM Comment: Please note: ??Patients with WBC >100,00 0 may have falsely elevated Potassium levels. ??For accurate Potassium quantif ication in these patients send serum separator tube (gold top) for subsequent determinations. ??Contact the Clinical Chemistry Laboratory if there are any qu estions. Chloride 98 98 - 107 mmol/L CERNER MILLENN IUM [...] week). For patient s multiply eGFR by 1.2.MDRD equation has not been validated for pediatric pat ients and is only valid for patients with [...] Volume Laterality Blood specimen 02/04/2011 12:39 1 (specimen) PM EDT 12:44 PM EDT Jazmin Monsivais MD CHEMISTRY ORDERABLES Performing Organization Address City/State/[place] [address] [facility] documented in this encounter Visit Diagnoses Diagnosis Elevated serum creatinine Other nonspecific findings on examinatio n of blood documented in this encounter Care Teams Slot Floor Person Relationship Specialty Start Date End Date Vinicio Ferris MD PCP - General 10/18/10 11/20/11 [facility] GENER[place] [address] documented as of this encounter
--- OUTSIDE RECORDS SUMMARY | 2021-11-30 08:29 | XMS_ITS | Encounter Summary ---
:1955 Author Organization [facility] [place] [address] Care Team Providers Name Role Phone Vinicio Ferris MD Primary Care Provider Reason for Visit Reason Onset Date Comments Other 08/13/2011 Cancellation < 24 Ho urs Encounter Details Date Type Department Care Team Description 08/13/2011 Telephone Psychiatry and Min Levine MD Other (Cancellation < Behavioral Health at [facility] 2 4 Hours) [facility] [place] [address] [place] [address] [phone] Social History Tobacco Use Types Packs/Day Years Used Date Current Some Day Smoker Cigarettes 0.25 42 Smokeless Tobacco: Former User Alcohol Use Standard Drinks/Week Comments Not Asked 0 (1 standard drink = 0.6 oz pure alcoho l) Sex Assigned at Date Recorded Not on file documented as of this encounter Miscellaneous Notes Telephone Encounter - Min Levine MD - 08/13/2011 5:35 PM EDT Message copied by MIN LEVINE on FriAug 13, 2011 5:35 PM ------ Message from: ANGELO SINGH Created: FriAug 13, 2011 8:39 AM Patient had to cancel for today- transportation issue- reschedule to 09/04 on waitlist documented in this encounter Plan of Treatment Upcoming Encounters Date Type Specialty Care Team Description 12/11/2021 Appointment Radiology 12/11/2021 Office Visit Orthopaedics Marion Tavera APRN [facility] ORTHOPAEDIC SURG [place], [place] [address] (Wo rk) 01/15/2022 Appointment Radiology Stiven Cervantes MD [facility] Pulmonary Medici [place], [place] [address] (Wo rk) Scheduled Procedures Name Priority Associated Diagnoses Date/Time DEBRIDEMENT SKIN, SUBCU, MUSCLE, R great toe amp utation, wound LOWER EXTREMITY (WRVU 2.7) closure MODIFIER WOUND VAC R great toe amputation, wound closure documented as of this encounter Visit Diagnoses Not on filedocumented in this encounter Care Teams Development Scientist Relationship Specialty Start Date End Date Vinicio Ferris MD PCP - General 10/18/10 11/20/11 [facility] GENER[place] [address] documented as of this encounter
--- OUTSIDE RECORDS SUMMARY | 2021-11-30 08:29 | XMS_ITS | Encounter Summary ---
:1955 Author Organization [facility] [place] [address] Care Team Providers Name Role Phone Vinicio Ferris MD Primary Care Provider Reason for Visit Reason Onset Date Comments Medication Refill 02/26/2011 Encounter Details Date Type Department Care Team Description 02/26/2011 [address] Medicine at [facility] Jazmin Monsivais MD Pain (Primary Dx) [facility] [place] [address] GENERAL INTERNAL [phone] MEDICINE [place], [place] [address] (Wo rk) Social History Tobacco Use Types Packs/Day Years Used Date Current Some Day Smoker Cigarettes 0.5 42 Smokeless Tobacco: Former User Alcohol Use Standard Drinks/Week Comments Not Asked 0 (1 standard drink = 0.6 oz pure alcoho l) Sex Assigned at Date Recorded Not on file documented as of this encounter Miscellaneous Notes Telephone Encounter - Dalia Antunez RN - 02/26/2011 10:11 AM EDT Last set of prescriptions written in error documented in this encounter Plan of Treatment Upcoming Encounters Date Type Specialty Care Team Description 12/11/2021 Appointment Radiology 12/11/2021 Office Visit Orthopaedics Marion Tavera APRN [facility] ORTH[place]EDIC [place], [place] [address] (Wo rk) 01/15/2022 Appointment Radiology Stiven Cervantes MD [facility] Pulmonary Medici ne [place], [place] [address] (Wo rk) Scheduled Procedures Name Priority Associated Diagnoses Date/Time DEBRIDEMENT SKIN, SUBCU, MUSCLE, R great toe amp utation, wound LOWER EXTREMITY (WRVU 2.7) closure MODIFIER WOUND VAC R great toe amputation, wound closure documented as of this encounter Visit Diagnoses Diagnosis Pain - Primary Generalized pain documented in this encounter Care Teams Multimedia Engineer Relationship Specialty Start Date End Date Vinicio Ferris MD PCP - General 10/18/10 11/20/11 [facility] GENERAL [place] [address] documented as of this encounter
--- OUTSIDE RECORDS SUMMARY | 2021-11-30 08:29 | XMS_ITS | Encounter Summary ---
:1955 Author Organization [facility] [place] [address] Care Team Providers Name Role Phone Vinicio Ferris MD Primary Care Provider Reason for Visit Reason Comments Medication Refill Encounter Details Date Type Department Care Team Description 08/01/2011 Refill Psychiatry and Behavioral Everton Thornton MD [facility] Jenni hammer [place] [address] [place] [address] [phone] (Wo rk) Social History Tobacco Use Types [...] APRN [facility] [address] ORTHOPAEDIC SURG [place], [place] [address] (Wo rk) 01/15/2022 Appointment Radiology Stiven Cervantes MD [facility] Pulmonary Medici nelly [place], [place] [address] (Wo rk) Scheduled Procedures Name Priority Associated Diagnoses Date/Time DEBRIDEMENT SKIN, SUBCU, MUSCLE, R great toe amp utation, wound LOWER EXTREMITY (WRVU 2.7) closure MODIFIER WOUND VAC R great toe amputation, wound closure documented as of this encounter Visit Diagnoses Not on filedocumented in this encounter Care Teams Vehicle Leasing And Rental Manager Relationship Specialty Start Date End Date Vinicio Ferris MD PCP - General 10/18/10 11/20/11 [facility] [place] [address] documented as of this encounter
--- OUTSIDE RECORDS SUMMARY | 2021-11-30 08:29 | XMS_ITS | Encounter Summary ---
:1955 Author Organization [facility] [place] [address] Care Team Providers Name Role Phone Vinicio Ferris MD Primary Care Provider Reason for Visit Reason Onset Date Comments Medication Refill 08/19/2011 Encounter Details Date Type Department Care Team Description 08/19/2011 Refill Internal Medicine at [facility] Dalia Antunez Pain (Primary Dx) [facility] [place] [address] Social History Tobacco Use Types Packs/Day [...] Marion Tavera APRN [facility] ORTHOPAEDIC SURG [place], [place] [address] (Wo rk) 01/15/2022 Appointment Radiology Stiven Cervantes MD [facility] Pulmonary Medici nelly [place], [place] [address] (Wo rk) Scheduled Procedures Name Priority Associated Diagnoses Date/Time DEBRIDEMENT SKIN, SUBCU, MUSCLE, R great toe amp utation, wound LOWER EXTREMITY (WRVU 2.7) closure MODIFIER WOUND VAC R great toe amputation, wound closure documented as of this encounter Visit Diagnoses Diagnosis Pain - Primary Generalized pain documented in this encounter Care Teams Swimming Pool Serviceperson Relationship Specialty Start Date End Date Vinicio Ferris MD PCP - General 10/18/10 11/20/11 [facility] [place] [address] documented as of this encounter
--- OUTSIDE RECORDS SUMMARY | 2021-11-30 08:29 | XMS_ITS | Encounter Summary ---
:1955 Author Organization [facility] [place] [address] Care Team Providers Name Role Phone Vinicio Ferris MD Primary Care Provider Reason for Visit Reason Onset Date Comments Medication Refill 05/28/2011 Encounter Details Date Type Department Care Team Description 05/28/2011 Refill Internal Medicine at [facility] Dalia Antunez Pain (Primary Dx) [facility] [place] [address] Social History Tobacco Use Types Packs/Day [...] APRN [facility] ORTHOPAEDIC SURG [place], [place] [address] (Wo rk) 01/15/2022 Appointment Radiology Stiven Cervantes MD [facility] Pulmonary Medici nelly [place], [place] [address] (Wo rk) Scheduled Procedures Name Priority Associated Diagnoses Date/Time DEBRIDEMENT SKIN, SUBCU, MUSCLE, R great toe amp utation, wound LOWER EXTREMITY (WRVU 2.7) closure MODIFIER WOUND VAC R great toe amputation, wound closure documented as of this encounter Visit Diagnoses Diagnosis Pain - Primary Generalized pain documented in this encounter Care Teams Patient Access Director Relationship Specialty Start Date End Date Vinicio Ferris MD PCP - General 10/18/10 11/20/11 [facility] GENERAL [place] [address] documented as of this encounter
--- OUTSIDE RECORDS SUMMARY | 2021-11-30 08:29 | XMS_ITS | Encounter Summary ---
:1955 Author Organization [facility] [place] [address] Care Team Providers Name Role Phone Vinicio Ferris MD Primary Care Provider Reason for Visit Reason Onset Date Comments Medication Refill 09/09/2011 Encounter Details Date Type Department Care Team Description 09/09/2011 Refill Internal Medicine at [facility] Dalia Antunez Pain (Primary Dx) [facility] [place] [address] Social History Tobacco Use Types Packs/Day [...] APRN [facility] ORTHOPAEDIC SURG [place], [place] [address] (Wo rk) 01/15/2022 Appointment Radiology Stiven Cervantes MD [facility] Pulmonary Medici nelly [place], [place] [address] (Wo rk) Scheduled Procedures Name Priority Associated Diagnoses Date/Time DEBRIDEMENT SKIN, SUBCU, MUSCLE, R great toe amp utation, wound LOWER EXTREMITY (WRVU 2.7) closure MODIFIER WOUND VAC R great toe amputation, wound closure documented as of this encounter Visit Diagnoses Diagnosis Pain - Primary Generalized pain documented in this encounter Care Teams Pediatric Speech Therapist Relationship Specialty Start Date End Date Vinicio Ferris MD PCP - General 10/18/10 11/20/11 [facility] [place] [address] documented as of this encounter
--- OUTSIDE RECORDS SUMMARY | 2021-11-30 08:29 | XMS_ITS | Encounter Summary ---
:1955 Author Organization [facility] [place] [address] Care Team Providers Name Role Phone Vinicio Ferris MD Primary Care Provider Encounter Details Date Type Department Care Team Description 07/08/2011 Hospital Encounter Laboratory James Aiken Hepatitis c, chronic; [facility] MD [place]ka Cirrhosis [facility] [address] GASTROENTEROLOGY [phone] [facility] [id number] Social History Tobacco Use Types Packs/Day Years Used Date Current Some Day Smoker Cigarettes 0.25 42 Smokeless Tobacco: Former User Alcohol Use Standard Drinks/Week Comments Not Asked 0 (1 standard drink = 0.6 oz pure alcoho l) Sex Assigned at Date Recorded Not on file documented as of this encounter Medications at Time of Discharge Medication Sig Dispensed Refills Start Date End Date methylphenidate (RITALIN) Take 1 tablet by 120 tablet 0 06/1307/29/2011 20 mg tablet mouth 4 times daily. For ADHD. methadone (DOLOPHINE) 10 Take 4 tablets by 224 tablet 0 06/1307/17/2011 mg tabletIndications: Pain mouth 4 times daily. Signed for Dr. Ferris amlodipine (NORVASC) 5 mg Take 1 tablet by 90 tablet 3 02/0901/21/2012 tablet mouth daily. atenolol (TENORMIN) 50 mg Take 50 mg by 0 07/27/2012 tablet mouth 2 times daily. buPROPion (WELLBUTRIN XL) Take 1 tablet by [...] Office Visit Orthopaedics Marion Tavera APRN [facility] ER DR ORTHOPAEDIC SURG [place], [place] [address] (Wo rk) 01/15/2022 Appointment Radiology Stiven Cervantes MD [facility] Pulmonary Medici [place], [place] [address] (Wo rk) Scheduled Procedures Name Priority Associated Diagnoses Date/Time DEBRIDEMENT SKIN, SUBCU, MUSCLE, R great toe amp utation, wound LOWER EXTREMITY (WRVU 2.7) closure MODIFIER WOUND VAC R great toe amputation, wound closure documented as of this encounter Procedures Procedure Name Priority Date/Time Associated Comments Diagnosis HCV QUANT Routine 07/08/2011 1:30 PM Hepatitis c, Results f or this EST chronic procedure are i n the results section. DIFFERENTIAL, Routine 07/08/2011 1:30 PM Results for this AUTOMATED EST procedure are i n the results section. IRON AND TIBC Routine 07/08/2011 1:30 PM Hepatitis c, Results for this EST chronic procedure are i n the results section. AFP TUMOR MARKER Routine 07/08/2011 1:30 PM Hepatitis c, Resul ts for this EST chronic procedure are in Cirrhosis the results section. CBC (WITH DIFF) Routine 07/08/2011 1:30 PM Hepatitis c, Result s for this EST chronic procedure are i n the results section. TSH Routine 07/08/2011 1:30 PM Hepatitis c, Results f or this EST chronic procedure are i n the results section. FERRITIN Routine 07/08/2011 1:30 PM Hepatitis c, Results f or this EST chronic procedure are i n the results section. COMPREHENSIVE Routine 07/08/2011 1:30 PM Hepatitis c, Results for this METABOLIC PANEL EST chronic procedure ar e in (NON-FASTING) the results section. HEPATITIS C RNA, Routine 07/08/2011 1:21 PM Hepatitis c, QUANTITATIVE, PCR EST chronic documented in this encounter Results (ABNORMAL) DIFFERENTIAL, AUTOMATED (07/08/2011 1:30 PM EST) [facility] Method Time Signature Neutrophils % 55.4 34.0 - CERNER 71.0 % MILLENNIUM Neutr Abs (ANC) 5.23 1.50 - CERNER 6.30 MILLENNIUM x10(3)/mcL Lymphocytes % 26.8 19.0 - CERNER 53.0 % MILLENNIUM Lymphocytes Abs 2.5 1.0 - 3.6 CERNER x10(3)/mcL MILLENNIUM Monocytes % 12.9 4.0 - 13.0 CERNER % MILLENNIUM Monocyte Abs 1.2 (H) 0.2 - 1.0 CERNER x10(3)/mcL MILLENNIUM Eosinophils % 4.0 0.0 - 7.0 CERNER % MILLENNIUM Eosinophils Abs 0.4 0.0 - 0.5 CERNER x10(3)/mcL MILLENNIUM Basophils % 0.7 0.0 - 2.0 CERNER % MILLENNIUM Basophils Abs 0.1 0.0 - 0.2 CERNER x10(3)/mcL MILLENNIUM Immature Gran % 0.20 0.00 - CERNER [...] Shannan Gran Abs 0.02 0.00 - 0.05 x10(3)/mcL CER NER MILLENNIUM Specimen Anatomical Collection Method Collection Time Receive d Time (Source) Location / / Volume Laterality Blood specimen 07/08/2011 1:30 PM 012 1:35 (specimen) EST PM EST James Aiken MD HEMATOLOGY ORDERABLES Performing Organization Address City/State/ZIP Code Phon e Number [place] [id number] [facility] HCV QUANT (07/08/2011 1:30 PM EST) Component Value Ref Test Analysis Performed At Patholo gist Range Method Time Signature HCV Viral [id number] IU[facility] HCV Viral Result: [id number] [facility] Load [facility] Indication for Study: Hepatitis C Infection Analysis: [...] assay is being pe rformed in the [facility] Molecular Pathology Laboratory. Endy Bliss, Ph.D. Director, Molecular Pathology Comment: [VERIFIED DATE]07.12.11 Verified By:Leila Judd (Electronic Signature) Specimen Anatomical Collection Method Collection Time Receive d Time (Source) Location / / Volume Laterality Blood specimen 07/08/2011 1:30 PM 012 (specimen) EST 11:04 AM EST Resulting Agency Comment Spec In Lab James Aiken MD HEMATOLOGY ORDERABLES Performing Organization Address City/[facility]/ZIP Code Phon e Number [address] [facility] AFP tumor marker (07/08/2011 1:30 PM EST) athologist Signature AFP 5 <=19 ng/mL [facility] Specimen Anatomical Collection Method Collection Time Receive d Time (Source) Location / / Volume Laterality Blood specimen 07/08/2011 1:30 PM 012 8:07 (specimen) EST AM EST Resulting Agency Comment Spec In Lab James Aiken MD CHEMISTRY ORDERABLES Performing Organization Address City/[facility] Phon e Number [address] [facility] (ABNORMAL) TSH (07/08/2011 1:30 PM EST) athologist Signature TSH 4.80 (H) 0.27 - 4.20 CERNER mcIU/mL MILLENNIUM Specimen Anatomical Collection Method Collection Time Receive d Time (Source) Location / / Volume Laterality Blood specimen 07/08/2011 1:30 PM 012 1:35 (specimen) EST PM EST Resulting Agency Comment Spec In Lab James Aiken MD CHEMISTRY ORDERABLES Performing Organization Address City/[facility]/[place] [address] CERNER MILLENNIUM Iron and TIBC [...] Aiken MD CHEMISTRY ORDERABLES Performing Organization Address City/[facility]/ZIP Code Phon e Number [address] CERNER MILLENNIUM Ferritin (07/08/2011 1:30 PM EST) athologist Signature Ferritin 271 30 - 400 CERNER ng/mL MILLENNIUM Comment: Pediatric reference ranges not verified at [facility], interpret with caution. Reference ranges for females greater javier n 50 years of age approach values for men, i.e., 30-400 ng/mL. Specimen Anatomical Collection Method Collection Time Receive d Time (Source) Location / / Volume Laterality Blood specimen 07/08/2011 1:30 PM 012 1:35 (specimen) EST PM EST Resulting Agency Comment Spec In Lab James Aiken MD CHEMISTRY ORDERABLES Performing Organization Address City/[facility]/ZIP Code Phon e Number [address] CERNER MILLENNIUM (ABNORMAL) Comprehensive metabolic panel (non-fasting) (07/08/2011 1:30 PM EST) P athologist Signature Glucose Lvl 71 60 - 199 CERNER mg/dL MILLENNIUM Comment: Diabetes: >=200 mg/dL plus symp toms BUN 13 10 - 20 mg/dL CERNER MILLENNIU M Creatinine 1.14 0.80 - 1.50 mg/dL CERNER MILL ENNIUM Sodium 139 135 - 145 mmol/L CERNER GEBRER NIUM Potassium 4.0 3.5 - 5.0 mmol/L [...] years. At present, [facility] does NOT recommend i ng the MDRD equation for drug dosing [...] Organization Address City/State/[place] [address] CERNER MILLENNIUM (ABNORMAL) CBC [...] 34.8 (H) 25.6 - CERNER 32.2 pg MILLENNIUM MCHC 34.6 32.0 - CERNER 36.5 gm/dL MILLENNIUM Platelets 237 145 - 370 CERNER x10(3)/mcL MILLENNIUM RDWSD 51.1 (H) 35.0 - CERNER 46.0 fL [facility] RDWCV 13.9 10.9 - CERNER 14.4 % [facility] MPV 9.8 9.0 - 12.0 CERNER [facility] Specimen Anatomical Collection Method Collection Time Receive d Time (Source) Location / / Volume Laterality Blood specimen 07/08/2011 1:30 PM 012 1:35 (specimen) EST PM EST Resulting Agency Comment Spec In Lab James Aiken MD HEMATOLOGY ORDERABLES Performing Organization Address City/State/[place] [address] [facility] documented in this encounter Visit Diagnoses Diagnosis Hepatitis C, chronic Chronic hepatitis C without mention of h epatic coma Cirrhosis Cirrhosis of liver without mention of al cohol documented in this encounter Care Teams Fruit Cutter Relationship Specialty Start Date End Date Vinicio Ferris MD PCP - General 10/18/10 11/20/11 [facility] [place] [address] documented as of this encounter
--- OUTSIDE RECORDS SUMMARY | 2021-11-30 08:29 | XMS_ITS | Encounter Summary ---
:1955 Author Organization [facility] [place] [address] Care Team Providers Name Role Phone Vinicio Ferris MD Primary Care Provider Encounter Details Date Type Department Care Team Description 02/04/2011 Hospital Encounter Laboratory Shivani Thornton MD Major depressive [facility] disorder, [facility] DR alice, unspecified [place], [place] PSYCHIATRY DEPT. [id number] [place], [place] [phone] Social History Tobacco Use Types Packs/Day Years [...] [facility] DR ORTHOPAEDIC SURG [place], [place] 0375 (Wo rk) 01/15/2022 Appointment Radiology Stiven Cervantes MD [facility] Pulmonary Medici [place], [place] [address] (Wo rk) Scheduled Procedures Name Priority Associated Diagnoses Date/Time DEBRIDEMENT SKIN, SUBCU, MUSCLE, R great toe amp utation, wound LOWER EXTREMITY (WRVU 2.7) closure MODIFIER WOUND VAC R great toe amputation, wound closure documented as of this encounter Procedures Procedure Name Priority Date/Time Associated Diagnosis Comme nts T3, FREE Routine 02/04/2011 12:39 PM Major depressive Resu lts for this EDT disorder, single procedure a re in episode, unspecified the res ults section. TSH Routine 02/04/2011 12:39 PM Major depressive Resu lts for this EDT disorder, single procedure a re in episode, unspecified the res ults section. T4, FREE Routine 02/04/2011 12:39 PM Major depressive Resu lts for this EDT disorder, single procedure a re in episode, unspecified the res ults section. documented in this encounter Results T4, free (02/04/2011 12:39 PM EDT) P athologist Signature Free T4 1.33 0.90 - 1.60 CERNER ng/dL MILLENNIUM Specimen Anatomical Collection Method Collection Time Receive d Time (Source) Location / / Volume Laterality Blood specimen 02/04/2011 12:39 1 (specimen) PM EDT 12:44 PM EDT Shivani Thornton MD CHEMISTRY ORDERABLES Performing Organization Address City/[facility]/[place] [address] CERNER MILLENNIUM T3, free (02/04/2011 12:39 PM EDT) P athologist Signature T3, Free 3.3 2.0 - 3.5 CERNER pg/mL MILLENNIUM Comment: Test Performed by: [place] [address] Press Leader: Berna Martino, Ph. D. Specimen Anatomical Collection Method Collection Time Receive d Time (Source) Location / / Volume Laterality Blood specimen 02/04/2011 12:39 1 2:11 (specimen) PM EDT PM EDT Shivani Thornton MD CHEMISTRY ORDERABLES Performing Organization Address City/State/ZIP Code Phon e Number [address] CERNER MILLENNIUM (ABNORMAL) TSH (02/04/2011 12:39 PM EDT) P athologist Signature TSH 4.24 (H) 0.27 - 4.20 CERNER mcIU/mL MILLENNIUM Specimen Anatomical Collection Method Collection Time Receive d Time (Source) Location / / Volume Laterality Blood specimen 02/04/2011 12:39 1 (specimen) PM EDT 12:44 PM EDT Shivani Thornton MD CHEMISTRY ORDERABLES Performing Organization Address City/[facility]/[place] [address] CERNER MILLENNIUM documented in this encounter Visit Diagnoses Diagnosis Major depressive disorder, single episod e, unspecified documented in this encounter Care Teams Health Services Director Relationship Specialty Start Date End Date Vinicio Ferris MD PCP - General 10/18/10 11/20/[address] [facility] [place] [address] documented as of this encounter
--- OUTSIDE RECORDS SUMMARY | 2021-11-30 08:29 | XMS_ITS | Encounter Summary ---
:1955 Author Organization [facility] [place] [address] Care Team Providers Name Role Phone Vinicio Ferris MD Primary Care Provider Reason for Visit Reason Onset Date Comments Medication Refill 2011 Encounter Details Date Type Department Care Team Description 2011 Refill [place] [facility] [place]ia Antunez Pain (Primary Dx) [facility] [place] [address] Social History Tobacco Use Types Packs/Day [...] Tavera APRN [facility] ORTHOPAEDIC SURG [place], [place] 0375 (Wo rk) 01/15/2022 Appointment Radiology Stiven Cervantes MD [facility] Pulmonary Medici nelly [place], [place] [address] (Wo rk) Scheduled Procedures Name Priority Associated Diagnoses Date/Time DEBRIDEMENT SKIN, SUBCU, MUSCLE, R great toe amp utation, wound LOWER EXTREMITY (WRVU 2.7) closure MODIFIER WOUND VAC R great toe amputation, wound closure documented as of this encounter Visit Diagnoses Diagnosis Pain - Primary Generalized pain documented in this encounter Care Teams Stay Cutter Relationship Specialty Start Date End Date Vinicio Ferris MD PCP - General 10/18/10 11/20/11 [facility] [place] [address] documented as of this encounter
--- OUTSIDE RECORDS SUMMARY | 2021-11-30 08:29 | XMS_ITS | Encounter Summary ---
:1955 Author Organization [facility] [place] [address] Care Team Providers Name Role Phone Vinicio Ferris MD Primary Care Provider Reason for Visit Reason Onset Date Comments Medication Refill 10/02/2011 Encounter Details Date Type Department Care Team Description 10/02/2011 Refill Internal Medicine at [facility] Vinicio Ferris MD [facility] [place] [phone] GENERAL INTERNAL MEDICINE [phone] [place], [place] 0[address] (Wo rk) Social History Tobacco [...] Tavera APRN [facility] ER ORTHOPAEDIC SURG [place], [place] 0[address] (Wo rk) 01/15/2022 Appointment Radiology Stiven Cervantes MD [facility] Pulmonary Medici nelly [place], [place] [address] (Wo rk) Scheduled Procedures Name Priority Associated Diagnoses Date/Time DEBRIDEMENT SKIN, SUBCU, MUSCLE, R great toe amp utation, wound LOWER EXTREMITY (WRVU 2.7) closure MODIFIER WOUND VAC R great toe amputation, wound closure documented as of this encounter Visit Diagnoses Not on filedocumented in this encounter Care Teams Fishing Tool Operator Relationship Specialty Start Date End Date Vinicio Ferris MD PCP - General 10/18/10 11/20/11 [facility] [place] [address] documented as of this encounter
--- OUTSIDE RECORDS SUMMARY | 2021-11-30 08:29 | XMS_ITS | Encounter Summary ---
:1955 Author Organization [facility] [place] [address] Care Team Providers Name Role Phone Vinicio Ferris MD Primary Care Provider Reason for Visit Reason Onset Date Comments Medication Refill 03/25/2011 Encounter Details Date Type Department Care Team Description 03/25/2011 Refill Internal Medicine at [facility] Vinicio Ferris MD Pain (Primary Dx) [facility] rive [facility] [place] [address] GENERAL INTERNAL [phone] MEDICINE [place], [place] 0[address] (Wo rk) Social History Tobacco [...] Marion Tavera APRN [facility] ER ORTHOPAEDIC SURG [place], [place] [address] (Wo rk) 01/15/2022 Appointment Radiology Stiven Cervantes MD [facility] er Pulmonary Medici nelyl [place], [place] [address] (Wo rk) Scheduled Procedures Name Priority Associated Diagnoses Date/Time DEBRIDEMENT SKIN, SUBCU, MUSCLE, R great toe amp utation, wound LOWER EXTREMITY (WRVU 2.7) closure MODIFIER WOUND VAC R great toe amputation, wound closure documented as of this encounter Visit Diagnoses Diagnosis Pain - Primary Generalized pain documented in this encounter Care Teams Senior Pensions Administrator Relationship Specialty Start Date End Date Vinicio Ferris MD PCP - General 10/18/10 11/20/11 [facility] GENERAL [place] [address] documented as of this encounter
--- OUTSIDE RECORDS SUMMARY | 2021-11-30 08:29 | XMS_ITS | Encounter Summary ---
:1955 Author Organization [facility] [address] Care Team Providers Name Role Phone Vinicio Ferris MD Primary Care Provider Reason for Visit Reason Comments Medication Refill Encounter Details Date Type Department Care Team Description 08/06/2011 Refill Psychiatry and Behavioral Everton Thornton MD [facility] Jenni hammer [place] [address] [place] [address] [phone] (Wo rk) Social History Tobacco Use Types [...] Marion Tavera APRN [facility] DR ORTHOPAEDIC SURG [place], [place] 0[address] (Wo rk) 01/15/2022 Appointment Radiology Stiven Cervantes MD [facility] Pulmonary Medici nelly [place], [place] [address] (Wo rk) Scheduled Procedures Name Priority Associated Diagnoses Date/Time DEBRIDEMENT SKIN, SUBCU, MUSCLE, R great toe amp utation, wound LOWER EXTREMITY (WRVU 2.7) closure MODIFIER WOUND VAC R great toe amputation, wound closure documented as of this encounter Visit Diagnoses Not on filedocumented in this encounter Care Teams Sheriff'S Sergeant Relationship Specialty Start Date End Date Vinicio Ferris MD PCP - General 10/18/10 11/20/11 [facility] [place] [address] documented as of this encounter
--- OUTSIDE RECORDS SUMMARY | 2021-11-30 08:29 | XMS_ITS | Encounter Summary ---
:1955 Author Organization [facility] [place] [address] Care Team Providers Name Role Phone Vinicio Ferris MD Primary Care Provider Reason for Visit Reason Onset Date Comments Medication Refill 06/17/2011 Encounter Details Date Type Department Care Team Description 06/17/2011 Refill [place] Medicine [place] [facility] [place] Dalia Antunez Pain (Primary Dx) [facility] [place] [address] Social History Tobacco Use Types Packs/Day [...] APRN [facility] ORTHOPAEDIC SURG [place], [place] 0[address] (Wo rk) 01/15/2022 Appointment Radiology Stiven Cervantes MD [facility] Pulmonary Medici nelly [place], [place] [address] (Wo rk) Scheduled Procedures Name Priority Associated Diagnoses Date/Time DEBRIDEMENT SKIN, SUBCU, MUSCLE, R great toe amp utation, wound LOWER EXTREMITY (WRVU 2.7) closure MODIFIER WOUND VAC R great toe amputation, wound closure documented as of this encounter Visit Diagnoses Diagnosis Pain - Primary Generalized pain documented in this encounter Care Teams Human Resources Department Supervisor Relationship Specialty Start Date End Date Vinicio Ferris MD PCP - General 10/18/10 11/20/11 [facility] GENERAL [place] [address] documented as of this encounter
--- OUTSIDE RECORDS SUMMARY | 2021-11-30 08:29 | XMS_ITS | Encounter Summary ---
:1955 [place] [address] Care Team Providers Name Role Phone Vinicio Ferris MD Primary Care Provider Reason for Visit Reason Comments Medication Refill Encounter Details Date Type Department Care Team Description 02/26/2011 Refill Internal Medicine [place] [facility] Meli Lepe MD [facility] [place] [address] GENERAL INTERNAL MEDICINE [phone] [place], [place] 0[address] (Wo rk) Social History Tobacco [...] Visit Orthopaedics Marion Tavera APRN [facility] DR ORTHOPAEDIC SURG [place]ILL[place], [place] 0[address] (Wo rk) 01/15/2022 Appointment Radiology Stiven Cervantes MD [facility] Pulmonary Mediccharlie villegas [place], [place] [address] (Wo rk) Scheduled Procedures Name Priority Associated Diagnoses Date/Time DEBRIDEMENT SKIN, SUBCU, MUSCLE, R great toe amp utation, wound LOWER EXTREMITY (WRVU 2.7) closure MODIFIER WOUND VAC R great toe amputation, wound closure documented as of this encounter Visit Diagnoses Not on filedocumented in this encounter Care Teams Horticulture Worker Relationship Specialty Start Date End Date Vinicio Ferris MD PCP - General 10/18/10 11/20/11 [facility] [place] [address] documented as of this encounter
--- OUTSIDE RECORDS SUMMARY | 2021-11-30 08:29 | XMS_ITS | Encounter Summary ---
:1955 Author Organization [facility] [place] [place] [address] Care Team Providers Name Role Phone Vinicio Ferris MD Primary Care Provider Reason for Visit Reason Onset Date Comments Medication Refill 07/29/2011 Encounter Details Date Type Department Care Team Description 07/29/2011 [place]ill [place] Medicine [place] [facility] [place]ia Antunez Pain (Primary Dx) [facility] [place] [address] Social History Tobacco Use Types Packs/Day [...] [facility] ORTH[facility] SURG [place], [place] [address] (Wo rk) 01/15/2022 Appointment Radiology Stiven Cervantes MD [facility] Pulmonary Medici nelly [place], [place] [address] (Wo rk) Scheduled Procedures Name Priority Associated Diagnoses Date/Time DEBRIDEMENT SKIN, SUBCU, MUSCLE, R great toe amp utation, wound LOWER EXTREMITY (WRVU 2.7) closure MODIFIER WOUND VAC R great toe amputation, wound closure documented as of this encounter Visit Diagnoses Diagnosis Pain - Primary Generalized pain documented in this encounter Care Teams Customer Engineering Specialist Relationship Specialty Start Date End Date Vinicio Ferris MD PCP - General 10/18/10 11/20/11 [facility] [place] [address] documented as of this encounter
--- OUTSIDE RECORDS SUMMARY | 2021-11-30 08:29 | XMS_ITS | Encounter Summary ---
:1955 Author Organization [facility] [place] [address] Care Team Providers Name Role Phone Vinicio Ferris MD Primary Care Provider Encounter Details Date Type Department Care Team Description 04/30/2011 Orders Only Internal Medicine at [facility] Dalia Antunez, [facility] [place] [address] Social History Tobacco Use Types Packs/Day [...] [facility] DR ORTHOPAEDIC SURG [place], [place] [address] (Wo rk) 01/15/2022 Appointment Radiology Stiven Cervantes MD [facility] Pulmonary Medici [place], [place] [address] (Wo rk) Scheduled Procedures Name Priority Associated Diagnoses Date/Time DEBRIDEMENT SKIN, SUBCU, MUSCLE, R great toe amp utation, wound LOWER EXTREMITY (WRVU 2.7) closure MODIFIER WOUND VAC R great toe amputation, wound closure documented as of this encounter Visit Diagnoses Not on filedocumented in this encounter Care Teams Electrician Journeyman Wireman Relationship Specialty Start Date End Date Vinicio Ferris MD PCP - General 10/18/10 11/20/11 [facility] GENERAL [place] [address] documented as of this encounter
--- OUTSIDE RECORDS SUMMARY | 2021-11-30 08:29 | XMS_ITS | Encounter Summary ---
:1955 [place] [address] Care Team Providers Name Role Phone Vinicio Ferris MD Primary Care Provider Reason for Visit Reason Comments Medication Refill Encounter Details Date Type Department Care Team Description 02/28/2011 Refill Internal Medicine at [facility] Meli Lepe [place] [facility] [place] [address] GENERAL INTERNAL MEDICINE [phone] [place], [place] [address] (Wo rk) Social History Tobacco [...] [facility] DR ORTHOPAEDIC SURG [place], [place] [address] (Wo rk) 01/15/2022 Appointment Radiology Stiven Cervantes MD [facility] Pulmonary Mediccharlie villegas [place], [place] [address] (Wo rk) Scheduled Procedures Name Priority Associated Diagnoses Date/Time DEBRIDEMENT SKIN, SUBCU, MUSCLE, R great toe amp utation, wound LOWER EXTREMITY (WRVU 2.7) closure MODIFIER WOUND VAC R great toe amputation, wound closure documented as of this encounter Visit Diagnoses Not on filedocumented in this encounter Care Teams Paraffin Plant Sweater Operator Relationship Specialty Start Date End Date Vinicio Ferris MD PCP - General 10/18/10 11/20/11 [facility] GENERAL [place] [address] documented as of this encounter
--- OUTSIDE RECORDS SUMMARY | 2021-11-30 08:29 | XMS_ITS | Encounter Summary ---
:1955 Author Organization [facility] [place] [address] Care Team Providers Name Role Phone Vinicio Ferris MD Primary Care Provider Encounter Details Date Type Department Care Team Description 05/21/2011 Office Visit Psychiatry and Shivani Thornton MD Major depressive Behavioral Health at [facility] ana pradhan, single [facility] episode, unspecified [facility] PSYCHIATRY DE PT. (Primary Dx) [address] [phone] [address] (Work) [phone] Social History Tobacco Use Types Packs/Day Years Used Date Current Some Day Smoker Cigarettes 0.25 42 Smokeless Tobacco: Former User Alcohol Use Standard Drinks/Week Comments Not Asked 0 (1 standard drink = 0.6 oz pure alcoho l) Sex Assigned at Date Recorded Not on file documented as of this encounter Last Filed Vital Signs Vital Sign Reading Time Taken Comments Blood Pressure 144/75 05/21/2011 3:08 PM EST Pulse - - Temperature - - Respiratory Rate - - Oxygen Saturation - - Inhaled Oxygen Concentration - - Weight 94.8 kg (209 lb) 05/21/2011 3:07 PM EST Height 167.6 cm (5' 6) 05/21/2011 3:07 PM EST Body Mass Index 33.73 05/21/2011 3:07 PM EST documented in this encounter Progress Notes Shivani Thornton MD - 05/21/2011 3:07 PM EST Individual Psychotherapy with EM Office Visit (CPT 41351 (30 min), 69007 (60 min)/KARLEY 5420) (* = required item) *Length of Service: 60 minutes *Interval Hx: Brings in two prescriptions for methylphenidate from Dr. Monsivais (03/12, 05/07), says he'dgotten one every two weeks when he gets his methadone prescription. Recent liver ultrasound shows no change. Has been having acid reflux, vomiting, nauseated in the a.m., nauseated into the early afternoon every day. Had had before, had gone away, came back about a year ago. Woke up yesterday, felt normal for the first time in a long time. Today mostly feeling good until about 2 hours ago (felt sad about granddaughter going back to her mother's). Granddaughter comes almostevery week for 3-4 days. Feels for about past 15 years he's just been waiting to . Not yesterday, this a.m. 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 Another friend 05/19. Had bone cancer, but of [place]. Early 60s. Had some bad dreams a few months ago about something similar to some things he did in the past. Called a friend and talked about it the next a.m. *Therapeutic Intervention Used (e.g., insight-oriented, supportive, behavioral modification) and Patient's Response: [place] Psychotherapy plus Medication Management (chosen because this seems best approach to facilitate change). *Pertinent Med SE: none. *MSE: Appearance/Behavior: Casually dressed middle-aged WM sitting quietly in chair, sense of tension in shoulders and back, especially left shoulder. Mood/Affect: Full, smiling at times. Thoughts (including *Suicidal/Homicidal Thoughts/Plans): Overinclusive, tangential. No SI/HI. Other Pertinent Exam: *A (including Diagnosis): 55 y.o. male with MDD-SE (296.20), ADHD, Chronic Pain, EtOH Dependence, Anxiety D/O NOS, h/o Opioid Dependence. Target Sx: depressed mood, poor self-image, anxiety/worry. Progress to Goal Achievement: Pt. feeling much better, with improved self-esteem. Outcome Monitoring Methods: patient's subjective reports, patient's mental status. P: 1) Medication Change(s) (Current meds continued if no med changes listed): 2) I suggested talk to his PCP, GI MD about his daily nausea. Follow-Up Appt: 1 mo. *Coordination of Care: Pt. requests that this note be sent to VINICIO Pang MD (PCP) (lupillo holloway, aware that he can read them in eD-H) (pt. understands that this will continue until/lesss/he requests otherwise) documented in this encounter Plan of Treatment Upcoming Encounters Date Type Specialty Care Team Description 12/11/2021 Appointment Radiology 12/11/2021 Office Visit Orthopaedics Marion Tavera APRN [facility] ORTHOPAEDIC SURG [place], [place] [address] (Wo rk) 01/15/2022 Appointment Radiology Stiven Cervantes MD [facility] Pulmonary Medici [place], [place] [address] (Wo rk) Scheduled Procedures Name Priority Associated Diagnoses Date/Time DEBRIDEMENT SKIN, SUBCU, MUSCLE, R great toe amp utation, wound LOWER EXTREMITY (WRVU 2.7) closure MODIFIER WOUND VAC R great toe amputation, wound closure documented as of this encounter Visit Diagnoses Diagnosis Major depressive disorder, single episod e, unspecified - Primary documented in this encounter Care Teams Boning Room Worker Relationship Specialty Start Date End Date Vinicio Ferris MD PCP - General 10/18/10 11/20/11 [facility] GENERAL [place] [address] documented as of this encounter
--- OUTSIDE RECORDS SUMMARY | 2021-11-30 08:29 | XMS_ITS | Encounter Summary ---
:1955 Author Organization [facility] Address [facility] [place] [address] Care Team Providers Name Role Phone Vinicio Ferris MD Primary Care Provider Encounter Details Date Type Department Care Team Description 03/12/2011 Telephone Internal Medicine at [facility] Jazmin Monsivais MD [facility] [place] [address] GENERAL INTERNAL MEDICINE [phone] [place], [place] [address] (Wo rk) Social History Tobacco Use Types Packs/Day Years Used Date Current Some Day Smoker Cigarettes 0.5 42 Smokeless Tobacco: Former User Alcohol Use Standard Drinks/Week Comments Not Asked 0 (1 standard drink = 0.6 oz pure alcoho l) Sex Assigned at Date Recorded Not on file documented as of this encounter Miscellaneous Notes Telephone Encounter - Dalia Antunez RN - 03/12/2011 4:26 PM EDT Med given documented in this encounter Plan of Treatment Upcoming Encounters Date Type Specialty Care Team Description 12/11/2021 Appointment Radiology 12/11/2021 Office Visit Orthopaedics Marion Tavera APRN [facility] DR ORTHOPAEDIC SURG [place], [place] [address] (Wo rk) 01/15/2022 [facility]ment [facility] St[facility] T , MD [facility] Pulmonary Medici ne [place], [place] [address] (Wo rk) Scheduled Procedures Name Priority Associated Diagnoses Date/Time DEBRIDEMENT SKIN, SUBCU, MUSCLE, R great toe amp utation, wound LOWER EXTREMITY (WRVU 2.7) closure MODIFIER WOUND VAC R great toe amputation, wound closure documented as of this encounter Visit Diagnoses Diagnosis Pain - Primary Generalized pain documented in this encounter Care Teams Quantometer Operator Relationship Specialty Start Date End Date Vinicio Ferris MD PCP - General 10/18/10 11/20/11 [facility] GENER[place] [address] documented as of this encounter
--- OUTSIDE RECORDS SUMMARY | 2021-11-30 08:29 | XMS_ITS | Encounter Summary ---
:1955 Author Organization [facility] [place] [address] Care Team Providers Name Role Phone Vinicio Ferris MD Primary Care Provider Reason for Visit Reason Comments Follow-up Encounter Details Date Type Department Care Team Description 09/09/2011 Follow-Up Gastroenterology at [facility] Caitlin Dowling, Cirrhosis; [facility] Jenni hammer APRN [place], [place] [address] [facility] [phone] CENTER GASTROENTEROLOGY DEPT. [place], [place] [address] Social History Tobacco Use Types [...] Sign Reading Time Taken Comments Blood Pressure 112/76 09/09/2011 2:44 PM EDT Pulse 67 09/09/2011 2:44 PM EDT Temperature - - Respiratory Rate - - Oxygen Saturation - - Inhaled Oxygen Concentration - - Weight 95.7 kg (211 lb) 09/09/2011 2:44 PM EDT Height 175.3 cm (5' 9) 09/09/2011 2:44 PM EDT Body Mass Index 31.16 09/09/2011 2:44 PM EDT documented in this encounter Progress Notes Caitlin Dowling APRN - 09/09/2011 2:52 PM EDT Subjective: Patient ID: Mahin Ramos is a 56 y.o. male. HPI Current problem list: 1. Chronic hepatitis C w/early cirrhosis; viral load (02/16) 234,000 IU/ml; genotype:2b -unclear when acquired -[facility] 08- no evidence of cirrhosis -Liver biopsy- [...] is here to discuss his future options. He complains of swelling and pain in his right foot and now has noticed some swelling and discomfortin the left as well. Review of Systems Constitutional: Negative for fever. [...] this time given his genotype 2 infection. 2. Cirrhosis, will schedule surveillance abdominal ultrasound. Will delay EGD screening until May of 2012. He will follow up in six months for ongoing surveillance. 3. He has several non-liver complaints today and he was redirected to his PCP. I did recheck a tsh today as he has had low level abnormal TSH readings in the recent past. documented in this encounter Plan of Treatment Upcoming Encounters Date Type Specialty Care Team Description 12/11/2021 Appointment Radiology 12/11/2021 Office Visit Orthopaedics Marion Tavera APRN [facility] ORTHOPAEDIC SURG [place], [place] [address] (Wo rk) 01/15/2022 Appointment Radiology Stiven Cervantes MD [facility] Pulmonary Medici [place], [place] [address] (Wo rk) Scheduled Procedures Name Priority Associated Diagnoses Date/Time DEBRIDEMENT SKIN, SUBCU, MUSCLE, R great toe amp utation, wound LOWER EXTREMITY (WRVU 2.7) closure MODIFIER WOUND VAC R great toe amputation, wound closure documented as of this encounter Procedures Procedure Name Priority Date/Time Associated Diagnosis Comme nts HCV GENOTYPE Routine 09/09/2011 3:42 PM Cirrhosis Results f or this EDT procedure are i n the results section. TSH Routine 09/09/2011 3:42 PM Cirrhosis Results for this EDT Hepatitis c, chronic procedu re are in the results section. HEPATITIS C Routine 09/09/2011 3:35 PM Cirrhosis GENOTYPE EDT documented in this encounter Results HCV GENOTYPE (09/09/2011 3:42 PM EDT) Component Value Ref Test Analysis Performed At [facility] gist Range Method Time Signature HCV Genotype Indication for study CERNER Hepatitis C Infection [facility] UM Result 2b Interpretation The result of this analysis has identified the presence of ??genotype 2b in the submitted specimen. Genotypes 1a and 1b are the most c ommon genotypes in the [place] and are generally associated with a poor response to tr eatment with interferon and ribavirin. Genotypes 2 and 3 are typically associated with a more favorable response. Analysis A reverse transcriptase-PCR line probe a ssay (LiPA) was performed on extracted viral RNA for the purpose of identifying the HCV genotype. Method Clickst HCV Genotype LiPA. Random primers are used i n a reverse transcriptase reaction to create cDNA that is generated fr om viral RNA. The cDNA is then amplified by PCR using biotinylated primers directed against the 5'-untranslated region of the HCV genome . Amplified products are hybridized to genotype specific probes and detected in a colorimetric reac tion. Genotype classifications will be repo rted as 1a, 1b, 1, 2a/2c, 2b, 2, 3a, 3b, 3c, 3, 4a, 4b, 4c/4d, 4e, 4f, 4h, 5a, or 6a. Comment: [VERIFIED DATE]09.19.11 Verified By:Leila Judd (Electronic Signature) Specimen Anatomical Collection Method Collection Time Receive d Time (Source) Location / / Volume Laterality Blood specimen 09/09/2011 3:42 PM 012 (specimen) EDT 10:30 AM EDT Resulting Agency Comment Spec In Lab James Aiken MD HEMATOLOGY ORDERABLES Performing Organization Address City/State/ZIP Code Phon e Number [place] [id number] [facility] (ABNORMAL) TSH (09/09/2011 3:42 PM EDT) athologist Signature TSH 4.43 (H) 0.27 - 4.20 [place] mcIU/mL [facility] Specimen Anatomical Collection Method Collection Time Receive d Time (Source) Location / / Volume Laterality Blood specimen 09/09/2011 3:42 PM 012 3:51 (specimen) EDT PM EDT Resulting Agency Comment Spec In Lab James Aiken MD CHEMISTRY ORDERABLES Performing Organization Address City/State/[place] [address] [facility] documented in this encounter Visit Diagnoses Diagnosis Cirrhosis Cirrhosis of liver without mention of al cohol Hepatitis C, chronic Chronic hepatitis C without mention of h epatic coma documented in this encounter Care Teams Vocational Teacher Relationship Specialty Start Date End Date Vinicio Ferris MD PCP - General 10/18/10 11/20/[address] [facility] [address] [place] [address] documented as of this encounter
--- OUTSIDE RECORDS SUMMARY | 2021-11-30 08:29 | XMS_ITS | Encounter Summary ---
:1955 Author Organization [facility] Address [facility] [place] [address] Care Team Providers Name Role Phone Vinicio Ferris MD Primary Care Provider Encounter Details Date Type Department Care Team Description 05/10/2011 Hospital Encounter Ultrasound at [facility] DR CARBAJAL Hepatitis c, chronic; [facility] James Aiken MD [facility] GASTROENTEROLOGY [place] [address] [place] [address] Social History Tobacco Use Types [...] Take 4 tablets by 224 tablet 0 04/1205/20/2011 mg tabletIndications: Pain mouth 4 times daily for [address] Ferris methylphenidate (RITALIN) Take 1 tablet by 120 tablet 0 04/1205/20/2011 20 mg tablet mouth 4 times daily. For ADHD. Do not fill before 04/03/11. amlodipine (NORVASC) 5 mg Take 1 tablet [...] APRN [facility] ORTHOPAEDIC SURG [place], [place] [address] (Wo rk) 01/15/2022 Appointment Radiology Stiven Cervantes MD [facility] Pulmonary Medici [place], [place] [address] (Wo rk) Scheduled Procedures Name Priority Associated Diagnoses Date/Time DEBRIDEMENT SKIN, SUBCU, MUSCLE, R great toe amp utation, wound LOWER EXTREMITY (WRVU 2.7) closure MODIFIER WOUND VAC R great toe amputation, wound closure documented as of this encounter Procedures Procedure Name Priority Date/Time Associated Diagnosis Comme nts US ABDOMEN COMPLETE Routine 05/10/2011 10:47 AM Hepatiti s c, chronic Results for this EST Cirrhosis procedure are i n the results section. documented in this encounter Results US abdomen complete (05/10/2011 10:47 AM EST) Anatomical Region Laterality Modality Abdomen, Vascular Ultrasound Specimen (Source) Anatomical Collection Method Collection Time Re ceived Time Location / / Volume Laterality 05/10/2011 10:47 AM EST Narrative 05/10/2011 11:39 AM EST ?Abdomin al ? (Signed Final 05/10/2011 11 :38 am) Patient Info ID: ? [id number] ? : ??[birth year] (55 yrs) Name: ? SOLEDAD WAHL ?Visit Date: 05/10/2011 10:40 am Performed By Performed By: ?Vonda Power Associate: ? Juan DYSON, Katey Molina Attending: ? Mehul DYSON, Edi Kelly Referred By: ? Caitlin Dowling, DECK SUPERVISOR Service(s) Provided BD - Abdominal Complete Survey - [id number] ? [id number] Indications Cirrhosis ----- Liver ----- Right Lobe [...] Final 05/10/2011 11:38 am) Patient Info ID: [id number] : [birth year] (55 yrs ) Name: SOLEDAD WAHL Visit Date: 2010 10:40 am Performed By Performed By: Vonda Power Associate: Katey Martinez MD Attending: Edi Carver MD Referred By: Caitlin Dowling APRN Service(s) Provided [facility] - Abdominal Complete Survey - [phone] [id number] Indications Cirrhosis ----- Liver ----- Right Lobe [...] cohol documented in this encounter Care Teams Cad Design Engineer Relationship Specialty Start Date End Date Vinicio Ferris MD PCP - General 10/18/10 11/20/11 [facility] GENERAL INTERNAL MEDIC[place] [address] documented as of this encounter
--- OUTSIDE RECORDS SUMMARY | 2021-11-30 08:29 | XMS_ITS | Encounter Summary ---
:1955 Author Organization [facility] Address [facility] [place] [address] Care Team Providers Name Role Phone Vinicio Ferris MD Primary Care Provider Reason for Visit Reason Comments Back Pain Encounter Details Date Type Department Care Team Description 08/05/2011 Office Visit Internal Medicine at Gregoria Coley MD Back pain (Primary [facility] Dx) [facility] DR Odell GENERAL INTERNAL [place], [place] MEDICINE [id number] [place] [address] [phone] (Wo rk) Social History Tobacco Use Types [...] Sign Reading Time Taken Comments Blood Pressure 147/86 08/05/2011 2:59 PM EDT Pulse 74 08/05/2011 2:59 PM EDT Temperature - - Respiratory Rate 18 08/05/2011 2:59 PM EDT Oxygen Saturation - - Inhaled Oxygen Concentration - - Weight 94.3 kg (208 lb) 08/05/2011 2:59 PM EDT Height - - Body Mass Index 30.72 07/05/2011 3:10 PM EST documented in this encounter Progress Notes Vince Alvarez MD - 08/05/2011 3:40 PM EDT The case was discussed at the time of the visit or immediately after the visit. The assessment and plan were formulated in discussion with me and I agree with them as documented. I have reviewed the history, physical exam, assessment and plan with the resident. Major issues discussed today: 55 -SDA for back pain. Chronic- on methadone. Having an exacerbation due to a twisting injury. scared- afraid to move. No radiation beyond buttock. No neuro sx. -osteoporosis- noted 10 years ago - no BRANDON for secondary causes seen on CIS review. Plan: naproxen for pain. Asking for RF of methadone 1 week early- will not give. Should get BRANDON for osteoporosis- secondary causes- testosterone, PTH, 25 OH D. Repeat dexa and treat. Radha Coley MD - 08/05/2011 3:01 PM EDT Subjective: Patient ID: Mahin Ramos is a 55 y.o. male here for an acute visit for worsening of his chronic back pain. HPI The back pain has been acutely worse since Friday afternoon. He describes the pain as an ache, located in L lower back and travels into his buttock. Slid on sneakers and tweaked his back, but denies falling or other trauma. Can't tell me what makes it worse, he just says that he is scared and doesn't want to move. Nothing makes it better, has tried heat wraps. Describes the pain sharp and shooting pain. Has difficulty urinating off and on for the past few years, it takes awhile to start urinating. He tries to empty his bladder all the way, but has gotten bladder infections in the past. Denies numbness or tingling in his legs. At baseline, pain is always above a 6. Has been on methadone for 9 years. He is requesting to mushroom picker his prescription a day early, and his prescription is waiting for him here at the office. Wears back brace chronically. 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 PTH, testosterone, vit D, Calcium has not checked for secondary causes of osteoporosis (DEXA 2002 showed osteoporosis) Dexa, bisphosphonate Review of Systems Denies loss of bladder or bowel function Denies loss of sensation in lower extremities. Denies saddle anesthesia. Objective: Physical Exam Gen: uncomfortable, pacing around exam room Back: no spinal tenderness or step-off. Strenth exam notable for give-away weakness of lower extremities b/l. Sensation intact. Antalgic gait. Assessment and Plan: 55 yo man with acute exacerbation of his chronic back pain. I think the acute exacerbation is due tomuscular strain, and I reassured him that exercises will help. # Back pain - gave methadone prescription at today's visit (one day early) - no indication for imaging today - encouraged naproxen for acute exacerbation - famotidine while taking naproxen - encouraged activity and ice/heat as helpful - He should get a workup for osteoporosis secondary causes; testosterone, PTH, 25 OH D. Repeat dexa scan and treat. documented in this encounter Plan of Treatment Upcoming Encounters Date Type Specialty Care Team Description 12/11/2021 Appointment Radiology 12/11/2021 Office Visit Orthopaedics Marion Tavera APRN [facility] DR ORTHOPAEDIC SURG [place], [place] [address] (Wo rk) 01/15/2022 Appointment Radiology Stiven Cervantes MD [facility] Pulmonary Medici [place], [place] [address] (Wo rk) Scheduled Procedures Name Priority Associated Diagnoses Date/Time DEBRIDEMENT SKIN, SUBCU, MUSCLE, R great toe amp utation, wound LOWER EXTREMITY (WRVU 2.7) closure MODIFIER WOUND VAC R great toe amputation, wound closure documented as of this encounter Visit Diagnoses Diagnosis Back pain - Primary Backache, unspecified documented in this encounter Care Teams Japanese Interpreter Relationship Specialty Start Date End Date Vinicio Ferris MD PCP - General 10/18/10 11/20/11 [facility] [place] [address] documented as of this encounter
--- OUTSIDE RECORDS SUMMARY | 2021-11-30 08:29 | XMS_ITS | Encounter Summary ---
:1955 Author Organization [facility] [address] Care Team Providers Name Role Phone Vinicio Ferris MD Primary Care Provider Encounter Details Date Type Department Care Team Description 10/02/2011 Orders Only Orthopaedics at [facility] [place] [place] Sheila-Marker, Alysia Hip pain [facility] Jenn[place] [address] [facility] [phone] ORTHOPAEDIC SURG [place], [place] [address] (Wo rk) Social History Tobacco [...] APRN [facility] ORTHOPAEDIC SURG [place], [place] [address] (Wo rk) 01/15/2022 Appointment Radiology Stiven Cervantes MD [facility] Pulmonary Mediccharlie [employer], [place] [address] (Wo rk) Scheduled Procedures Name Priority Associated Diagnoses Date/Time DEBRIDEMENT SKIN, SUBCU, MUSCLE, R great toe amp utation, wound LOWER EXTREMITY (WRVU 2.7) closure MODIFIER WOUND VAC R great toe amputation, wound closure documented as of this encounter Visit Diagnoses Diagnosis Hip pain Pain in joint, pelvic region and thigh documented in this encounter Care Teams Fur Coat Sewer Relationship Specialty Start Date End Date Vinicio Ferris MD PCP - General 10/18/10 11/20/[address] [facility] [address] [place] [address] documented as of this encounter
--- OUTSIDE RECORDS SUMMARY | 2021-11-30 08:29 | XMS_ITS | Encounter Summary ---
:1955 [place] [address] Care Team Providers Name Role Phone Vinicio Ferris MD Primary Care Provider Reason for Visit Reason Onset Date Comments Medication Refill 07/02/2011 Encounter Details Date Type Department Care Team Description 07/02/2011 Refill Internal Medicine at [facility] Vinicio Ferris MD [facility] [place] [address] GENERAL INTERNAL MEDICINE [phone] [place], [place] [address] (Wo rk) Social History Tobacco [...] Marion Tavera APRN [facility] ORTHOPAEDIC SURG [place], [place] [address] (Wo rk) 01/15/2022 Appointment Radiology Stiven Cervantes MD [facility] Pulmonary Medici [place], [place] [address] (Wo rk) Scheduled Procedures Name Priority Associated Diagnoses Date/Time DEBRIDEMENT SKIN, SUBCU, MUSCLE, R great toe amp utation, wound LOWER EXTREMITY (WRVU 2.7) closure MODIFIER WOUND VAC R great toe amputation, wound closure documented as of this encounter Visit Diagnoses Not on filedocumented in this encounter Care Teams Police Detective Relationship Specialty Start Date End Date Vinicio Ferris MD PCP - General 10/18/10 11/20/11 [facility] [place] [address] documented as of this encounter
--- OUTSIDE RECORDS SUMMARY | 2021-11-30 08:29 | XMS_ITS | Encounter Summary ---
:1955 Author Organization [facility] [place] [address] Care Team Providers Name Role Phone Vinicio Ferris MD Primary Care Provider Encounter Details Date Type Department Care Team Description 09/05/2011 Office Visit Psychiatry and Shivani Thornton MD Major depressive Behavioral Health at [facility] ana pradhan, single [facility] episode, unspecified [facility] PSYCHIATRY DE PT. (Primary Dx) [address] [phone] [address] (Work) [phone] Social History Tobacco Use Types Packs/Day Years Used Date Current Some Day Smoker Cigarettes 0.25 42 Smokeless Tobacco: Former User Alcohol Use Standard Drinks/Week Comments Not Asked 0 (1 standard drink = 0.6 oz pure alcoho l) Sex Assigned at Date Recorded Not on file documented as of this encounter Last Filed Vital Signs Vital Sign Reading Time Taken Comments Blood Pressure 122/83 09/05/2011 1:04 PM EDT Pulse - - Temperature - - Respiratory Rate - - Oxygen Saturation - - Inhaled Oxygen Concentration - - Weight 95.3 kg (210 lb) 09/05/2011 1:04 PM EDT Height 175.3 cm (5' 9) 09/05/2011 1:04 PM EDT Body Mass Index 31.01 09/05/2011 1:04 PM EDT documented in this encounter Progress Notes Shivani Thornton MD - 09/05/2011 1:36 PM EDT Individual Psychotherapy with EM Office Visit (CPT 11086 (30 min), 33559 (60 min)/KARLEY 5420) (* = required item) *Length of Service: 60 minutes *Chief Complaint: MDD-SE *Interval Hx: Has been having a lot of down feelings, all related to money (constant worry, barely enough to pay bills). Has appointment 09/08 to discuss treatment options for hepatitis. 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 Ran out Ritalin a couple of days ago. Perhaps more depressed during that time. Maria A starting eduardo ball. Pt. hoping to be involved with him. Thinks Wellbutrin has helped his smoking. Recently sometimes only smoking 2 cigarettes a day. 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 *Therapeutic Intervention Used (e.g., insight-oriented, supportive, behavioral modification) and Patient's Response: Hustle Psychotherapy plus Medication Management (chosen because this seems best approach to facilitate change). *Pertinent Med SE: none. *MSE: Appearance/Behavior: Casually dressed middle-aged WM walking uncomfortably, sitting with raised shoulders. Mood/Affect: Reasonable tone, smiling at times, but seems more subdued than sometimes. Thoughts (including *Suicidal/Homicidal Thoughts/Plans): No SI/HI. Other Pertinent Exam: *A (including Diagnosis): 56 [...] if no med changes listed): Follow-Up Appt: 1 mo. *Coordination of Care: Pt. requests that notes be sent to VINICIO Pang MD (PCP) (pt. understands that this will continue until/less s/he requests otherwise) documented in this encounter Plan of Treatment Upcoming Encounters Date Type Specialty Care Team Description 12/11/2021 Appointment Radiology 12/11/2021 Office Visit Orthopaedics Marion Tavera APRN [facility] ORTHOPAEDIC SURG [place], [place] [address] (Wo rk) 01/15/2022 Appointment Radiology Stiven Cervantes MD [facility] Pulmonary Medici [place], [place] [address] (Wo rk) Scheduled Procedures Name Priority Associated Diagnoses Date/Time DEBRIDEMENT SKIN, SUBCU, MUSCLE, R great toe amp utation, wound LOWER EXTREMITY (WRVU 2.7) closure MODIFIER WOUND VAC R great toe amputation, wound closure documented as of this encounter Visit Diagnoses Diagnosis Major depressive disorder, single episod e, unspecified - Primary documented in this encounter Care Teams Clinic Specialist Relationship Specialty Start Date End Date Vinicio Ferris MD PCP - General 10/18/10 11/20/11 [facility] GENERAL [place] [address] documented as of this encounter
--- OUTSIDE RECORDS SUMMARY | 2021-11-30 08:29 | XMS_ITS | Encounter Summary ---
:1955 [place] [address] Care Team Providers Name Role Phone Vinicio Ferris MD Primary Care Provider Reason for Visit Reason Comments Medication Refill Encounter Details Date Type Department Care Team Description 02/25/2011 [address] Medicine at [facility] Vinicio Ferris MD [facility] [place] [address] GENERAL INTERNAL MEDICINE [phone] [place], [place] [address] (Wo rk) Social History Tobacco [...] Marion Tavera APRN [facility] ER DR ORTHOPAEDIC SURG [place], [place] [address] (Wo rk) 01/15/2022 Appointment Radiology Stiven Cervantes MD [facility] Pulmonary Medici nelly [place], [place] [address] (Wo rk) Scheduled Procedures Name Priority Associated Diagnoses Date/Time DEBRIDEMENT SKIN, SUBCU, MUSCLE, R great toe amp utation, wound LOWER EXTREMITY (WRVU 2.7) closure MODIFIER WOUND VAC R great toe amputation, wound closure documented as of this encounter Visit Diagnoses Not on filedocumented in this encounter Care Teams Gravity Meter Operator Relationship Specialty Start Date End Date Vinicio Ferris MD PCP - General 10/18/10 11/20/11 [facility] GENERAL INTERNAL [place] [address] documented as of this encounter
--- OUTSIDE RECORDS SUMMARY | 2021-11-30 08:29 | XMS_ITS | Encounter Summary ---
:1955 Author Organization [facility] [place] [address] Care Team Providers Name Role Phone Vinicio Ferris MD Primary Care Provider Reason for Visit Reason Onset Date Comments Medication Refill 02/26/2011 Encounter Details Date Type Department Care Team Description 02/26/2011 Refill Internal Medicine at [facility] Vinicio Ferris MD Pain (Primary Dx) [facility] rive [facility] [place] [address] GENERAL INTERNAL [phone] MEDICINE [place], [place] [address] (Wo rk) Social History Tobacco [...] Marion Tavera APRN [facility] ER ORTHOPAEDIC SURG [place], [place] [address] (Wo rk) 01/15/2022 Appointment Radiology Stiven Cervantes MD [facility] er Pulmonary Medici nelly [place], [place] [address] (Wo rk) Scheduled Procedures Name Priority Associated Diagnoses Date/Time DEBRIDEMENT SKIN, SUBCU, MUSCLE, R great toe amp utation, wound LOWER EXTREMITY (WRVU 2.7) closure MODIFIER WOUND VAC R great toe amputation, wound closure documented as of this encounter Visit Diagnoses Diagnosis Pain - Primary Generalized pain documented in this encounter Care Teams Communications Designer Relationship Specialty Start Date End Date Vinicio Ferris MD PCP - General 10/18/10 11/20/11 [facility] GENERAL INTER[place] [address] documented as of this encounter
--- OUTSIDE RECORDS SUMMARY | 2021-11-30 08:29 | XMS_ITS | Encounter Summary ---
:1955 Author Organization [facility] [place] [address] Care Team Providers Name Role Phone Vinicio Ferris MD Primary Care Provider Reason for Visit Reason Onset Date Comments Medication Refill 04/30/2011 Encounter Details Date Type Department Care Team Description 04/30/2011 Refill Internal Medicine at [facility] [place] Dalia Antunez Pain (Primary Dx) [facility] [place] [phone] Social History Tobacco Use Types Packs/Day [...] Marion Tavera APRN [facility] ORTHOPAEDIC SURG [place], [place] [address] (Wo rk) 01/15/2022 Appointment Radiology Stiven Cervantes MD [facility] Pulmonary Medici nelly [place], [place] [address] (Wo rk) Scheduled Procedures Name Priority Associated Diagnoses Date/Time DEBRIDEMENT SKIN, SUBCU, MUSCLE, R great toe amp utation, wound LOWER EXTREMITY (WRVU 2.7) closure MODIFIER WOUND VAC R great toe amputation, wound closure documented as of this encounter Visit Diagnoses Diagnosis Pain - Primary Generalized pain documented in this encounter Care Teams Manager Packaging Relationship Specialty Start Date End Date Vinicio Ferris MD PCP - General 10/18/10 11/20/11 [facility] [place] [address] documented as of this encounter
--- OUTSIDE RECORDS SUMMARY | 2021-11-30 08:29 | XMS_ITS | Encounter Summary ---
:1955 Author Organization [facility] [place] [place] [address] Care Team Providers Name Role Phone Vinicio Ferris MD Primary Care Provider Reason for Visit Reason Onset Date Comments Medication Refill 05/20/2011 Encounter Details Date Type Department Care Team Description 05/20/2011 Refill [place] Medicine [place] [facility] [place] Dalia Antunez Pain (Primary Dx) [facility] [place] [address] Social History Tobacco Use Types Packs/Day [...] APRN [facility] ORTHOPAEDIC SURG [place], [place] [address] (Wo rk) 01/15/2022 Appointment Radiology Stiven Cervantes MD [facility] Pulmonary Medici nelly [place], [place] [address] (Wo rk) Scheduled Procedures Name Priority Associated Diagnoses Date/Time DEBRIDEMENT SKIN, SUBCU, MUSCLE, R great toe amp utation, wound LOWER EXTREMITY (WRVU 2.7) closure MODIFIER WOUND VAC R great toe amputation, wound closure documented as of this encounter Visit Diagnoses Diagnosis Pain - Primary Generalized pain documented in this encounter Care Teams Wireless Communications Engineer Relationship Specialty Start Date End Date Vinicio Ferris MD PCP - General 10/18/10 11/20/11 [facility] [place] [address] documented as of this encounter
--- OUTSIDE RECORDS SUMMARY | 2021-11-30 08:29 | XMS_ITS | Encounter Summary ---
:1955 Author Organization [facility] [place] [address] Care Team Providers Name Role Phone Vinicio Marte MD Primary Care Provider Encounter Details Date Type Department Care Team Description 07/05/2011 Office Visit Psychiatry and Shivani Thornton MD Major depressive Behavioral Health at [facility] ana pradhan, single [facility] episode, unspecified [facility] PSYCHIATRY DE PT. (Primary Dx) [address] [phone] (Work) [phone] Social History Tobacco Use Types Packs/Day Years Used Date Current Some Day Smoker Cigarettes 0.25 42 Smokeless Tobacco: Former User Alcohol Use Standard Drinks/Week Comments Not Asked 0 (1 standard drink = 0.6 oz pure alcoho l) Sex Assigned at Date Recorded Not on file documented as of this encounter Last Filed Vital Signs Vital Sign Reading Time Taken Comments Blood Pressure 122/82 07/05/2011 3:10 PM EST Pulse - - Temperature - - Respiratory Rate - - Oxygen Saturation - - Inhaled Oxygen Concentration - - Weight 96.2 kg (212 lb) 07/05/2011 3:10 PM EST Height 175.3 cm (5' 9) 07/05/2011 3:10 PM EST Body Mass Index 31.31 07/05/2011 3:10 PM EST documented in this encounter Progress Notes Shivani Thornton MD - 07/05/2011 3:42 PM EST Individual Psychotherapy with EM Office Visit (CPT 98684 (30 min), 36403 (60 min)/KARLEY 5420) (* = required item) *Length of Service: 60 minutes *Chief Complaint: MDD-SE *Interval Hx: I've kind of been a lump on a log. For the past few days. Low energy, not getting things done. Related to not having money. Depressing to him. Cut back his Ritalin about a week ago so he wouldn't run out (past time for prescription). Wonders if this is affecting his energy. Also had a GI bug this week. Granddaughter, Kirsten, has been with pt. for a week. Looks like she may stay with pt. longer. Her mother and pt's. son aren't , don't live together. Pt. would love it if granddaughter lived with him. He enjoys spending time with her. She's very bright, loves to sing and dance. Fell down the stairs when he got up at 4 a.m. today. Has fallen 2-3 times since last summer. We discussed taking steps to reduce risk of future falls. *Therapeutic Intervention Used (e.g., insight-oriented, supportive, behavioral modification) and Patient's Response: [place] Psychotherapy plus Medication Management (chosen because this seems best approach to facilitate change). *Pertinent Med SE: none. *MSE: Appearance/Behavior: Casually dressed, goateed middle-aged WM sitting quietly in chair, tension in shoulders. Talkative, good eye contact. Mood/Affect: Reasonable tone, but somewhat quiet compared to often for pt. Some smiles, lisa. talkingabout Kirsten. Thoughts (including *Suicidal/Homicidal Thoughts/Plans): No SI/HI. Other [...] 1 mo. *Coordination of Care: Pt. requests no notes be sent to VINICIO MARTE MD (PCP) (pt. understands that this will continue until/less s/he requests otherwise) documented in this encounter Plan of Treatment Upcoming Encounters Date Type Specialty Care Team Description 12/11/2021 Appointment Radiology 12/11/2021 Office Visit Orthopaedics Marion Tavera APRN [facility] ORTHOPAEDIC SURG [place], [place] [address] (Wo rk) 01/15/2022 Appointment Radiology Stiven Cervantes MD [facility] Pulmonary Medici [place], [place] [address] (Wo rk) Scheduled Procedures Name Priority Associated Diagnoses Date/Time DEBRIDEMENT SKIN, SUBCU, MUSCLE, R great toe amp utation, wound LOWER EXTREMITY (WRVU 2.7) closure MODIFIER WOUND VAC R great toe amputation, wound closure documented as of this encounter Visit Diagnoses Diagnosis Major depressive disorder, single episod e, unspecified - Primary documented in this encounter Care Teams Roll Hand Relationship Specialty Start Date End Date Vinicio Marte MD PCP - General 10/18/10 11/20/11 [facility] GENERAL [place] [address] documented as of this encounter
--- OUTSIDE RECORDS SUMMARY | 2021-11-30 08:29 | XMS_ITS | Encounter Summary ---
:1955 Author Organization [facility] [place] [address] Care Team Providers Name Role Phone Vinicio Ferris MD Primary Care Provider Reason for Visit Reason Onset Date Comments Medication Refill 09/20/2011 Encounter Details Date Type Department Care Team Description 09/20/2011 Refill Internal Medicine at [facility] Dalia Antunez Pain (Primary Dx) [facility] [place] [address] Social History Tobacco Use Types Packs/Day [...] Tavera APRN [facility] ORTHOPAEDIC SURG [place], [place] [address] (Wo rk) 01/15/2022 Appointment Radiology Stiven Cervantes MD [facility] Pulmonary Medici nelly [place], [place] [address] (Wo rk) Scheduled Procedures Name Priority Associated Diagnoses Date/Time DEBRIDEMENT SKIN, SUBCU, MUSCLE, R great toe amp utation, wound LOWER EXTREMITY (WRVU 2.7) closure MODIFIER WOUND VAC R great toe amputation, wound closure documented as of this encounter Visit Diagnoses Diagnosis Pain - Primary Generalized pain documented in this encounter Care Teams Candy Cutter Machine Relationship Specialty Start Date End Date Vinicio Ferris MD PCP - General 10/18/10 11/20/11 [facility] GENERAL [place] [address] documented as of this encounter
--- OUTSIDE RECORDS SUMMARY | 2021-11-30 08:29 | XMS_ITS | Encounter Summary ---
:1955 Author Organization [place] [address] Care Team Providers Name Role Phone Vinicio Ferris MD Primary Care Provider Reason for Visit Reason Onset Date Comments Medication Refill 07/29/2011 Encounter Details Date Type Department Care Team Description 07/29/2011 Refill Psychiatry and Behavioral Everton Thornton MD [facility] Jenni hammer [place] [address] [place] [address] [phone] (Wo rk) Social History Tobacco Use Types Packs/Day Years Used Date Current Some Day Smoker Cigarettes 0.25 42 Smokeless Tobacco: Former User Alcohol Use Standard Drinks/Week Comments Not Asked 0 (1 standard drink = 0.6 oz pure alcoho l) Sex Assigned at Date Recorded Not on file documented as of this encounter Miscellaneous Notes Telephone Encounter - Miriam Jones - 07/31/2011 8:00 AM EDT Comment: RX Mailed Prescription mailed 07/30/11. documented in this encounter Plan of Treatment Upcoming Encounters Date Type Specialty Care Team Description 12/11/2021 Appointment Radiology 12/11/2021 Office Visit Orthopaedics Marion Tavera APRN [facility] DR ORTHOPAEDIC SURG [place], [place] [address] (Wo rk) 01/15/2022 Appointment Radiology Stiven Cervantes MD [facility] Pulmonary Medici ne [place], [place] [address] (Wo rk) Scheduled Procedures Name Priority Associated Diagnoses Date/Time DEBRIDEMENT SKIN, SUBCU, MUSCLE, R great toe amp utation, wound LOWER EXTREMITY (WRVU 2.7) closure MODIFIER WOUND VAC R great toe amputation, wound closure documented as of this encounter Visit Diagnoses Not on filedocumented in this encounter Care Teams Ends Breakage Clerk Relationship Specialty Start Date End Date Vinicio Ferris MD PCP - General 10/18/10 11/20/11 [facility] GENERAL [place] [address] documented as of this encounter
--- OUTSIDE RECORDS SUMMARY | 2021-11-30 08:29 | XMS_ITS | Encounter Summary ---
:1955 Author Organization [facility] [place] [address] Care Team Providers Name Role Phone Vinicio Ferris MD Primary Care Provider Reason for Visit Reason Onset Date Comments Medication Refill 07/17/2011 Encounter Details Date Type Department Care Team Description 07/17/2011 Refill [place] Medicine [place] [facility] [place]ia Antunez Pain (Primary Dx) [facility] [place] [address] Social History Tobacco Use Types Packs/Day [...] 12/11/2021 Office Visit Orthopaedics Marion Tavera APRN [facility] ORTHOPAEDIC SURG [place], [place] [address] (Wo rk) 01/15/2022 Appointment Radiology Stiven Cervantes MD [facility] Pulmonary Medici nelly [place], [place] [address] (Wo rk) Scheduled Procedures Name Priority Associated Diagnoses Date/Time DEBRIDEMENT SKIN, SUBCU, MUSCLE, R great toe amp utation, wound LOWER EXTREMITY (WRVU 2.7) closure MODIFIER WOUND VAC R great toe amputation, wound closure documented as of this encounter Visit Diagnoses Diagnosis Pain - Primary Generalized pain documented in this encounter Care Teams Water/Wastewater Engineer Relationship Specialty Start Date End Date Vinicio Ferris MD PCP - General 10/18/10 11/20/11 [facility] [place] [address] documented as of this encounter
--- OUTSIDE RECORDS SUMMARY | 2021-11-30 08:29 | XMS_ITS | Encounter Summary ---
:1955 [place] [address] Care Team Providers Name Role Phone Vinicio Ferris MD Primary Care Provider Reason for Visit Reason Onset Date Comments Medication Refill 04/08/2011 Encounter Details Date Type Department Care Team Description 04/08/2011 Refill [place] [facility] Jazmin Monsivais MD Pain (Primary Dx) [facility] [place] [address] GENERAL INTERNAL [phone] MEDICINE [place], [place] [address] (Wo huey) Social History Tobacco [...] [facility] DR ORTHOPAEDIC SURG [place], [place] [address] (Wo rk) 01/15/2022 Appointment Radiology Stiven Cervantes MD [facility] Pulmonary Medici nelly [place], [place] [address] (Wo rk) Scheduled Procedures Name Priority Associated Diagnoses Date/Time DEBRIDEMENT SKIN, SUBCU, MUSCLE, R great toe amp utation, wound LOWER EXTREMITY (WRVU 2.7) closure MODIFIER WOUND VAC R great toe amputation, wound closure documented as of this encounter Visit Diagnoses Diagnosis Pain - Primary Generalized pain documented in this encounter Care Teams Economic Analysis Director Relationship Specialty Start Date End Date Vinicio Ferris MD PCP - General 10/18/10 11/20/11 [facility] [place] [address] documented as of this encounter
--- OUTSIDE RECORDS SUMMARY | 2021-11-30 08:30 | XMS_ITS | Encounter Summary ---
:1955 Author Organization [facility] [place] [address] Care Team Providers Name Role Phone Maribeth Pastrana MD Primary Care Provider Reason for Visit Reason Onset Date Comments Medication Refill 10/15/2010 Encounter Details Date Type Department Care Team Description 10/15/2010 Refill [place] Medicine [place] [facility] [place], Pain (Primary Dx) [facility] [place] [address] Social History Tobacco Use Types Packs/Day Years Used Date Never Assessed Sex Assigned at Date Recorded Not on file documented as of this encounter Plan of Treatment Upcoming Encounters Date Type Specialty Care Team Description 12/11/2021 Appointment Radiology 12/11/2021 Office Visit Orthopaedics Marion Tavera APRN [facility] ORTHOPAEDIC SURG [place], [place] [address] (Wo rk) 01/15/2022 Appointment Radiology Stiven Cervantes MD [facility] Pulmonary Medici nelly [place], [place] [address] (Wo rk) Scheduled Procedures Name Priority Associated Diagnoses Date/Time DEBRIDEMENT SKIN, SUBCU, MUSCLE, R great toe amp utation, wound LOWER EXTREMITY (WRVU 2.7) closure MODIFIER WOUND VAC R great toe amputation, wound closure documented as of this encounter Visit Diagnoses Diagnosis Pain - Primary Generalized pain documented in this encounter Care Teams Quantitative Strategy Analyst Relationship Specialty Start Date End Date Maribeth Pastrana MD PCP - General 04/03/10 10/17/10 [facility] GENERAL [place] [address] documented as of this encounter
--- OUTSIDE RECORDS SUMMARY | 2021-11-30 08:30 | XMS_ITS | Encounter Summary ---
:1955 Author Organization [facility] [place] [address] Care Team Providers Name Role Phone Vinicio Marte MD Primary Care Provider Encounter Details Date Type Department Care Team Description 02/01/2011 Office Visit Psychiatry and Shivani Thornton MD Major depressive Behavioral Health at [facility] ana pradhan, single [facility] DR alice, unspecified [facility] PSYCHIATRY DE PT. (Primary Dx) [address] [phone] [address] (Work) [phone] Social History Tobacco Use Types Packs/Day Years Used Date Current Some Day Smoker Cigarettes 0.5 42 Smokeless Tobacco: Former User Alcohol Use Standard Drinks/Week Comments Not Asked 0 (1 standard drink = 0.6 oz pure alcoho l) Sex Assigned at Date Recorded Not on file documented as of this encounter Last Filed Vital Signs Vital Sign Reading Time Taken Comments Blood Pressure 137/74 02/01/2011 1:34 PM EDT Pulse - - Temperature - - Respiratory Rate - - Oxygen Saturation - - Inhaled Oxygen Concentration - - Weight 91.8 kg (202 lb 6.4 oz) 02/01/2011 1:34 PM EDT Height 172.7 cm (5' 8) 02/01/2011 1:34 PM EDT Body Mass Index 30.77 02/01/2011 1:34 PM EDT documented in this encounter Progress Notes Shivani Thornton MD - 02/01/2011 2:05 PM EDT Individual Psychotherapy with EM Office Visit (CPT 50786 (30 min), 98808 (60 min)/KARLEY 5420) (* = required item) *Length of Service: 60 minutes *Interval Hx: Pt. tells me his atenolol has been discontinued, but looks like it wasn't. Since school started has been bringing all sorts of viruses home, hasn't had time to worry about all his problems. Starting to worry about it now. Didn't get thyroid tests yet, will do it with some other bloodwork. Hepatitis C counts up again. GFR also up. Has been thinking about , but tries not to. No EtOH since last appointment. *Therapeutic Intervention Used (e.g., insight-oriented, supportive, behavioral modification) and Patient's Response: [place] Psychotherapy plus Medication Management (chosen because this seems best approach to facilitate change). We discussed how to get drainage problem in house fixed. *Pertinent Med SE: none. *MSE: Appearance/Behavior: Talkative, good eye contact, raised tense shoulders. Mood/Affect: Well-toned, fairly bright. Smiling, sometimes laughing. Thoughts (including *Suicidal/Homicidal Thoughts/Plans): No SI/HI. Other [...] continued if no med changes listed): 2) We discussed relaxing his shoulders. Follow-Up Appt: 1 mo. *Coordination of Care: Pt. requests no notes be sent to VINICIO MARTE MD (PCP) (pt. understands that this will continue until/less s/he requests otherwise) documented in this encounter Plan of Treatment Upcoming Encounters Date Type Specialty Care Team Description 12/11/2021 Appointment Radiology 12/11/2021 Office Visit Orthopaedics Marion Tavera APRN [facility] ORTHOPAEDIC SURG [place], [place] [address] (Wo rk) 01/15/2022 Appointment Radiology Stiven Cervantes MD [facility] Pulmonary Medici [place], [place] [address] (Wo rk) Scheduled Procedures Name Priority Associated Diagnoses Date/Time DEBRIDEMENT SKIN, SUBCU, MUSCLE, R great toe amp utation, wound LOWER EXTREMITY (WRVU 2.7) closure MODIFIER WOUND VAC R great toe amputation, wound closure documented as of this encounter Visit Diagnoses Diagnosis Major depressive disorder, single episod e, unspecified - Primary documented in this encounter Care Teams Tool Maintenance Technician Relationship Specialty Start Date End Date Vinicio Marte MD PCP - General 10/18/10 11/20/11 [facility] [place] [address] documented as of this encounter
--- OUTSIDE RECORDS SUMMARY | 2021-11-30 08:30 | XMS_ITS | Encounter Summary ---
:1955 Author Organization [facility] [place] [address] Care Team Providers Name Role Phone Maribeth Pastrana MD Primary Care Provider Reason for Visit Reason Onset Date Comments Medication Refill 10/15/2010 Encounter Details Date Type Department Care Team Description 10/15/2010 Refill Internal Medicine at [facility] Raiza Angelo MD Pain (Primary Dx) [facility] Jenni rivpepito [facility] [place] [address] GENERAL INTERNAL [phone] MEDICINE [place], [place] [address] (Wo rk) Social History Tobacco Use Types Packs/Day Years Used Date Never Assessed Sex Assigned at Date Recorded Not on file documented as of this encounter Plan of Treatment Upcoming Encounters Date Type Specialty Care Team Description 12/11/2021 Appointment Radiology 12/11/2021 Office Visit Orthopaedics Marion Tavera APRN [facility] ORTHOPAEDIC SURG [place], [place] [address] (Wo rk) 01/15/2022 Appointment Radiology Stiven Cervantes MD [facility] Pulmonary Medici nelly [place], [place] [address] (Wo rk) Scheduled Procedures Name Priority Associated Diagnoses Date/Time DEBRIDEMENT SKIN, SUBCU, MUSCLE, R great toe amp utation, wound LOWER EXTREMITY (WRVU 2.7) closure MODIFIER WOUND VAC R great toe amputation, wound closure documented as of this encounter Visit Diagnoses Diagnosis Pain - Primary Generalized pain documented in this encounter Care Teams C Application Developer Relationship Specialty Start Date End Date Maribeth Pastrana MD PCP - General 04/03/10 10/17/10 [facility] GENERAL [place] [address] documented as of this encounter
--- OUTSIDE RECORDS SUMMARY | 2021-11-30 08:30 | XMS_ITS | Encounter Summary ---
:1955 Author Organization [place] [address] Care Team Providers Name Role Phone Maribeth Pastrana MD Primary Care Provider Reason for Visit Reason Comments Hepatitis C Encounter Details Date Type Department Care Team Description 08/16/2010 Follow-Up Gastroenterology at [facility] Caitlin Dowling, Hepatitis C (Primary Dx); [facility] [place] [address] [facility] [phone] CENTER GASTROENTEROLOGY DEPT. [place], [place] [address] Social History Tobacco Use Types Packs/Day Years Used Date Never Assessed Sex Assigned at Date Recorded Not on file documented as of this encounter Last Filed Vital Signs Vital Sign Reading Time Taken Comments Blood Pressure 140/90 08/16/2010 4:28 PM EDT Pulse - - Temperature - - Respiratory Rate - - Oxygen Saturation - - Inhaled Oxygen Concentration - - Weight 87.1 kg (192 lb) 08/16/2010 4:28 PM EDT Height - - Body Mass Index - - documented in this encounter Progress Notes Caitlin Dowling APRN - 08/16/2010 4:42 PM EDT Subjective: Patient ID: Mahin Ramos is a 54 y.o. male. HPI Current problem list: 1. [...] changes consistent with emphysema. No other diagnostic abnormalityin the abdomen. -AFP: (10/19) 5 Portal Hypertension surveillance: EGD: (05/2009) no EV or PHG HCV treatment: Naive Initial Medications: Pegasys 180mcg/ RBV 1200mg Dose reductions/ escalations: none to date Start date: 09/01/09 Completed treatment week/ length of treatment: Dose day: changed to Sat Lab day: Significant side effects: joint pain, irritability, nausea Additional medications: promethazine Viral Load: Pretreatment (08/11/2009) 1,294,013 IU; wk 6 (10/12)= <43 IU (not detected); wk 9 (10/30)< 43 but detected : (12/11/09) <43 -: wk 24 (02/14/2010) <43 +; (02/27/10) < 43 -: (04/16/2010) < 43 - INTERVAL HISTORY: Mr. Ramos has completed 48 weeks of peg and ribavirin treatment for his chronic hepatitis C infection. His baseline viral load was 1.2 million and he was undetectable at week 6. At week 9 his viral load was < 43 but detected and his Ribavirin was increased to 1400 mg at that time. He does not thinkthat he missed any doses but he did change his IFN dosing day. He also took his last dose of Interferon late by one day. He also had a 'blip' with a less than 43 but + on 10/6 repeat viral load on 02/27 was negative. The nausea and vomiting has improved since starting treatment. He continues to have fatigue and continues to complain of joint pain. Review of Systems Constitutional: Positive for fatigue. Negative for fever. Respiratory: Negative. Cardiovascular: Negative. Musculoskeletal: Positive for arthralgias. Objective: Physical Exam Constitutional: He appears well-developed and well-nourished. HENT: Head: Normocephalic. Eyes: Pupils are equal, round, and reactive to light. Cardiovascular: Normal rate and regular rhythm. Pulmonary/Chest: Effort normal and breath sounds normal. Abdominal: Soft. He exhibits no distension. No tenderness. Skin: Skin is warm and dry. Assessment and Plan: 1. Hepatitis C, has completed 48 weeks of treatment, continues to have some complaints including pain and fatigue. I will check labs today including a tsh to see if this can explain some of his symptoms. REalistically he can expect to improve over the next 2 months back to his baseline. He had pain prior to starting the Interferon and I think that this will continue. We will check a viral load at 3 months and again at six months, if the viral load remains negative at six months then the treatment was successful. I would like to see him back in clinic in six months. 2. Nausea and vomiting has resolved for the last week now that he is off the treatment. 3. Arthralgias and left shoulder pain, will follow up with his pcp for this issue. 4. Depression, he continues to see his counselor. documented in this encounter Plan of Treatment Upcoming Encounters Date Type Specialty Care Team Description 12/11/2021 Appointment Radiology 12/11/2021 Office Visit Orthopaedics Marion Tavera APRN [facility] DR ORTHOPAEDIC SURG [place], [place] [address] (Jorge arzate) 01/15/2022 Appointment Radiology Stiven Cervantes MD [facility] Pulmonary Medici [place], [place] [address] (Jorge arzate) Scheduled Procedures Name Priority Associated Diagnoses Date/Time DEBRIDEMENT SKIN, SUBCU, MUSCLE, R great toe amp utation, wound LOWER EXTREMITY (WRVU 2.7) closure MODIFIER WOUND VAC R great toe amputation, wound closure documented as of this encounter Procedures Procedure Name Priority Date/Time Associated Comments Diagnosis HCV QUANT Routine 08/16/2010 5:14 PM Results f or this EDT procedure are i n the results section. DIFFERENTIAL, Routine 08/16/2010 5:14 PM Results for this AUTOMATED EDT procedure are i n the results section. CBC (WITH DIFF) Routine 08/16/2010 5:14 PM Hepatitis C Result s for this EDT procedure are i n the results section. TSH Routine 08/16/2010 5:14 PM Hepatitis C Results f or this EDT procedure are i n the results section. COMPREHENSIVE Routine 08/16/2010 5:14 PM Hepatitis C Results for this METABOLIC PANEL EDT procedure ar e in (NON-FASTING) the results section. HEPATITIS C RNA, Routine 08/16/2010 5:05 PM Hepatitis C QUANTITATIVE, PCR EDT documented in this encounter Results REFLEX LAB-A-DIFF (08/16/2010 5:14 PM EDT) P athologist Signature Neutrophils % 57.5 34.0 - CERNER 71.0 % [facility]ILLENNIUM Neutr Abs (ANC) 3.57 1.50 - CERNER 6.30 MILLENNIUM x10(3)/mcL Lymphocytes % 25.6 19.0 - CERNER 53.0 % MILLENNIUM Lymphocytes Abs 1.6 1.0 - 3.6 CERNER x10(3)/mcL [facility] Monocytes % 12.9 4.0 - 13.0 CERNER % MILLENNIUM Monocyte Abs 0.8 0.2 - 1.0 CERNER x10(3)/mcL [facility] Eosinophils % 3.5 0.0 - 7.0 CERNER % MILLENNIUM Eosinophils Abs 0.2 0.0 - 0.5 CERNER x10(3)/mcL [facility]NI[facility] Basophils % 0.2 0.0 - 2.0 CERNER % MILLENNIUM Basophils Abs 0.0 0.0 - 0.2 CERNER x10(3)/mcL [facility] Immature Gran % 0.30 0.00 - CERNER [...] Gran Abs 0.02 0.00 - 0.05 x10(3)/mcL [facility] Specimen Anatomical Collection Method Collection Time Receive d Time (Source) Location / / Volume Laterality Blood specimen 08/16/2010 5:14 PM 011 5:29 (specimen) EDT PM EDT James Aiken MD HEMATOLOGY ORDERABLES Performing Organization Address City/[facility] Code Phon e Number [address] [facility] REFLEX LAB-HCV QUANT (08/16/2010 5:14 PM EDT) Component Value Ref Test Analysis Performed At [facility] Range Method Time Signature HCV Viral <43 IU/mL [facility] HCV Viral Result: < 43 (target not detected) [facility] Indication for Study: Hepatitis C Infection Analysis: [...] assay is being pe rformed in the [facility] Molecular Pathology Laboratory. Endy Bliss, Ph.D. Director, Molecular Pathology Comment: [VERIFIED DATE]08.20.10 Verified By:Leila Judd (Electronic Signature) Specimen Anatomical Collection Method Collection Time Receive d Time (Source) Location / / Volume Laterality Blood specimen 08/16/2010 5:14 PM 011 (specimen) EDT 10:31 AM EDT James Aiken MD HEMATOLOGY ORDERABLES Performing Organization Address City/[facility]/ZIP Code Phon e Number [address] [facility] (ABNORMAL) TSH (08/16/2010 5:14 PM EDT) P athologist Signature TSH 5.31 (H) 0.27 - 4.20 CERNER mcIU/mL [facility] Specimen Anatomical Collection Method Collection Time Receive d Time (Source) Location / / Volume Laterality Blood specimen 08/16/2010 5:14 PM 011 5:29 (specimen) EDT PM EDT James Aiken MD CHEMISTRY ORDERABLES Performing Organization Address City/State/[place] [address] CERNER [facility] (ABNORMAL) Comprehensive Metabolic Panel (08/16/2010 5:14 PM EDT) athologist Signature Glucose Lvl 88 60 - 199 CERNER mg/dL [facility] Comment: Diabetes: >=200 mg/dL plus symp toms BUN 10 10 - 20 mg/dL CERNER MILLENNIU M Creatinine 1.00 0.80 - 1.50 mg/dL CERNER MILL ENNIUM Sodium 138 135 - 145 mmol/L CERNER GERBER NIUM Potassium 4.2 3.5 - 5.0 mmol/L CERNER GERBER NIUM Comment: Please note: ??Patients with WBC >100,00 0 may have falsely elevated Potassium levels. ??For accurate Potassium quantif ication in these patients send serum separator tube (gold top) for subsequent determinations. ??Contact the Clinical Chemistry Laboratory if there are any qu estions. Chloride 101 98 - 107 mmol/L CERNER MILLENN IUM CO2 26 22 - 31 mmol/L CERNER MILLENNI UM Anion Gap 11 5 - 15 mmol/L CERNER MILLENNIU M Calcium 9.8 8.5 - 10.5 mg/dL CERNER GERBER NIUM Total Protein 8.1 6.4 - 8.3 gm/dL CERNER MIL LENNIUM Albumin 4.8 3.2 - 5.2 gm/dL CERNER MILLENN IUM AST 51 (H) 0 - 39 unit/L CERNER MILLENNIU M ALT 50 0 - 55 unit/L CERNER MILLENNIU M Alk Phos 114 40 - 120 unit/L CERNER MILLENN IUM Total Bilirubin 0.5 0.2 - 1.3 mg/dL CERNER M ILLENNIUM Bili, Direct 0.2 0.0 - 0.3 mg/dL CERNER MILL ENNIUM Estimated GFR >60 >=60 AMINA Esquivel Comment: The National Kidney Disease Education Pr ogram (NKDEP) has recommended all laboratories report estimated GFR (eGFR) along with plasma creatinine measurements to assist you with recognit ion of early kidney disease. Caveats: ??Plasma creatinine should be a t steady-state (unchanged within the past week). ??Patient age > = 18 years, and for Americans multiply eGFR by 1.2. At present, NKDEP does NOT recommend usi [...] Location / / Volume Laterality Blood specimen 08/16/2010 5:14 PM 011 5:29 (specimen) EDT PM EDT James Aiken MD CHEMISTRY ORDERABLES Performing Organization Address City/State/ZIP Code Phon e Number [place] [phone] CERNER [facility] (ABNORMAL) CBC (With Diff) (08/16/2010 5:14 PM EDT) P athologist Signature WBC 6.2 4.0 - 10.0 CERNER x10(3)/mcL [facility] RBC 4.04 (L) 4.63 - CERNER 6.08 MILLENNIUM x10(6)/mcL Hemoglobin 13.5 (L) 13.7 - CERNER 17.5 gm/dL [facility] Hematocrit 39.2 (L) 40.0 - CERNER 51.0 % MILLENNIUM MCV 97.0 (H) 79.0 - CERNER 92.0 fL MILLENNIUM MCH 33.4 (H) 25.6 - CERNER 32.2 pg MILLENNIUM MCHC 34.4 32.0 - CERNER 36.5 gm/dL [facility] Platelets 202 145 - 370 CERNER x10(3)/mcL [facility] RDWSD 47.4 (H) 35.0 - CERNER 46.0 fL MILLENNIUM RDWCV 13.4 10.9 - CERNER 14.4 % MILLENNIUM MPV 10.4 9.0 - 12.0 CERNER fL [facility] Specimen Anatomical Collection Method Collection Time Receive d Time (Source) Location / / Volume Laterality Blood specimen 08/16/2010 5:14 PM 011 5:29 (specimen) EDT PM EDT James Aiken MD HEMATOLOGY ORDERABLES Performing Organization Address City/State/[place] [address] [facility] documented in this encounter Visit Diagnoses Diagnosis Hepatitis C - Primary Unspecified viral hepatitis C without he patic coma Fatigue Other malaise and fatigue documented in this encounter Care Teams Machines Technician Relationship Specialty Start Date End Date Maribeth Pastrana MD PCP - General 04/03/10 10/17/[address] [facility] [address] GARCIA [place] [address] documented as of this encounter
--- OUTSIDE RECORDS SUMMARY | 2021-11-30 08:30 | XMS_ITS | Encounter Summary ---
:1955 Author Organization [facility] [place] [address] Care Team Providers Name Role Phone Vinicio Ferris MD Primary Care Provider Encounter Details Date Type Department Care Team Description 11/08/2010 Orders Only Gastroenterology at [facility] Caitlin Dowling Hep C w/o coma, [facility] Jenni hammer APRN chronic (Primary Dx) [place] [address] [place] [address] C[place] [address] Social History Tobacco Use Types Packs/Day Years Used Date Former Smoker Cigarettes 0.5 42 Smokeless Tobacco: Former [...] Tavera APRN [facility] ORTHOPAEDIC SURG [place], [place] [address] (Wo rk) 01/15/2022 Appointment Radiology Stiven Cervantes MD [facility] Pulmonary Medici nelly [place], [place] [address] (Wo rk) Scheduled Procedures Name Priority Associated Diagnoses Date/Time DEBRIDEMENT SKIN, SUBCU, MUSCLE, R great toe amp utation, wound LOWER EXTREMITY (WRVU 2.7) closure MODIFIER WOUND VAC R great toe amputation, wound closure documented as of this encounter Visit Diagnoses Diagnosis Hep C w/o coma, chronic - Primary Chronic hepatitis C without mention of h epatic coma documented in this encounter Care Teams Lidder Relationship Specialty Start Date End Date Vinicio Ferris MD PCP - General 10/18/10 11/20/11 [facility] GENER[place] [address] documented as of this encounter
--- OUTSIDE RECORDS SUMMARY | 2021-11-30 08:30 | XMS_ITS | Encounter Summary ---
:1955 Author Organization [facility] [place] [address] Care Team Providers Name Role Phone Vinicio Ferris MD Primary Care Provider Reason for Visit Reason Onset Date Comments Medication Refill 12/24/2010 Encounter Details Date Type Department Care Team Description 12/24/2010 Refill Internal Medicine at [facility] Vinicio Ferris MD Pain (Primary Dx) [facility] rive [facility] [place] [address] GENERAL INTERNAL [phone] MEDICINE [place], [place] [address] (Jorge arzate) Social History Tobacco Use Types Packs/Day Years [...] Orthopaedics Marion Tavera APRN [facility] DR ORTHOPAEDIC SURG [place], [place] [address] (Wo rk) 01/15/2022 Appointment Radiology Stiven Cervantes MD [facility] Pulmonary Medici nelly [place], [place] [address] (Jorge rk) Scheduled Procedures Name Priority Associated Diagnoses Date/Time DEBRIDEMENT SKIN, SUBCU, MUSCLE, R great toe amp utation, wound LOWER EXTREMITY (WRVU 2.7) closure MODIFIER WOUND VAC R great toe amputation, wound closure documented as of this encounter Visit Diagnoses Diagnosis Pain - Primary Generalized pain documented in this encounter Care Teams Big Data Software Engineer Relationship Specialty Start Date End Date Vinicio Ferris MD PCP - General 10/18/10 11/20/11 [facility] [place] [address] documented as of this encounter
--- OUTSIDE RECORDS SUMMARY | 2021-11-30 08:30 | XMS_ITS | Encounter Summary ---
:1955 Author Organization [facility] [place] [address] Care Team Providers Name Role Phone Vinicio Ferris MD Primary Care Provider Encounter Details Date Type Department Care Team Description 11/08/2010 Hospital Encounter Laboratory Maribeth Pastrana [facility] [place] [address] GENERAL INTERNAL [phone] MEDICINE [place], [place] [address] Social History Tobacco Use Types [...] methadone (DOLOPHINE) 10 Take 4 tablets by mouth 4 ti mes daily for 14 days. Two week script next due 12/10 224 tablet 0 11/26/20102010 mg tabletIndications: Pain For Dr. Ferris(Yodit) methadone (DOLOPHINE) 10 Take 4 tablets by mouth 4 ti mes daily for 14 days. Two week script next due 11/26 224 tablet 0 11/08/20102010 mg tabletIndications: Pain For Dr. Ferris methylphenidate (RITALIN) Take 1 tablet by 120 tablet 0 10/1112/05/2010 20 mg tablet mouth 4 times daily. For ADHD. ACETAMINOPHEN/DP-HYDRAM Take 2 tablets by 0 08/1608/21/2012 HCL (TYLENOL PM ORAL) mouth nightly as needed. diaZEPam (VALIUM) 5 mg 5 mg, PO, Three 0 08/01/19 11 01/01/2011 tablet times daily i daily prn atenolol (TENORMIN) 50 mg 50 MG = 1 0 07/31/2010 02/01/2011 tablet Tablet(s) PO Twice daily triamterene-hydrochlorothi 1 Capsule(s) PO 0 07/1101/22/2011 azide (DYAZIDE) 37.5-25 mg Once daily per capsule buPROPion (WELLBUTRIN XL) 300 MG = 1 0 07/31/2010 01/01/2011 300 mg 24 hr tablet Tablet(s), PO, Once daily triamcinolone (KENALOG) 1 Appl(s), Top, 0 011 03/07/2011 0.025 % cream Twice daily documented as of this encounter Plan of Treatment Upcoming Encounters Date Type Specialty Care Team Description 12/11/2021 Appointment Radiology 12/11/2021 Office Visit Orthopaedics Marion Tavera APRN [facility] DR ORTHOPAEDIC SURG [place], [place] [address] (Wo rk) 01/15/2022 Appointment Radiology Stiven Cervantes MD [facility] Pulmonary Medici [place], [place] [address] (Wo rk) Scheduled Procedures Name Priority Associated Diagnoses Date/Time DEBRIDEMENT SKIN, SUBCU, MUSCLE, R great toe amp utation, wound LOWER EXTREMITY (WRVU 2.7) closure MODIFIER WOUND VAC R great toe amputation, wound closure documented as of this encounter Visit Diagnoses Not on filedocumented in this encounter Care Teams Potash Flaker Relationship Specialty Start Date End Date Vinicio Ferris MD PCP - General 10/18/10 11/20/11 [facility] GENERAL [place] [address] documented as of this encounter
--- OUTSIDE RECORDS SUMMARY | 2021-11-30 08:30 | XMS_ITS | Encounter Summary ---
:1955 Author Organization [facility] [place] [address] Care Team Providers Name Role Phone Maribeth Pastrana MD Primary Care Provider Encounter Details Date Type Department Care Team Description 04/16/2010 Orders Only Lab [facility] Caitlin Dowling APRN [facility] Jenni hammer [place] [address] [place] [address] [phone] Social History Tobacco Use Types Packs/Day Years Used Date Never Assessed Sex Assigned at Date Recorded Not on file documented as of this encounter Plan of Treatment Upcoming Encounters Date Type Specialty Care Team Description 12/11/2021 Appointment Radiology 12/11/2021 Office Visit Orthopaedics Marion Tavera APRN [facility] ORTHOPAEDIC SURG [place], [place] [address] (Wo rk) 01/15/2022 Appointment Radiology Stiven Cervantes MD [facility] Pulmonary Medici nelly [place], [place] [address] (Wo rk) Scheduled Procedures Name Priority Associated Diagnoses Date/Time DEBRIDEMENT SKIN, SUBCU, MUSCLE, R great toe amp utation, wound LOWER EXTREMITY (WRVU 2.7) closure MODIFIER WOUND VAC R great toe amputation, wound closure documented as of this encounter Procedures Procedure Name Priority Date/Time Associated Diagnosis Comme nts HCV QUANT Routine 04/16/2010 12:31 PM Results for this EST procedure are i n the results section. DIFFERENTIAL, Routine 04/16/2010 12:31 PM Results for this AUTOMATED EST procedure are i n the results section. CBC (WITH DIFF) Routine 04/16/2010 12:31 PM Resul ts for this EST procedure are i n the results section. HEPATIC FUNCTION Routine 04/16/2010 12:31 PM Resu lts for this PANEL EST procedure are i n the results section. documented in this encounter Results REFLEX LAB-HCV QUANT ROCIO (04/16/2010 12:31 PM EST) Component Value Ref Test Analysis Performed At [place] [facility] gist Range Method Time Signature HCV Viral <43 IU/mL CERNER Load [facility] HCV Viral Result: < 43 (target not detected) CERNER Load [facility] Indication for Study: Hepatitis C Infection Analysis: A quantitiative real time reverse transcriptase PC R assay was performed on extracted viral RNA for the purpose of quantifi cation. Sample: plasma (0.5 mL minimun volume) Method: Rocio Jessica TaqMAN 48 HCV Linear Range: 43IU/mL - 69,000,000IU/mL (95% CI) Interpretation: The result of this analysis is w ithin the limits of detection of the assay. Note: This assay is being pe rformed in the [facility] Molecular Pathology Laboratory. Endy Bliss, Ph.D. Director, Molecular Pathology Comment: [VERIFIED DATE]04.20.10 Verified By:Carissa Berry (Electronic Signature) Specimen Anatomical Collection Method Collection Time Receive d Time (Source) Location / / Volume Laterality Blood specimen 04/16/2010 12:31 0 (specimen) PM EST 10:39 AM EST Caitlin Dowling APRN HEMATOLOGY ORDERABLES Performing Organization Address City/State/ZIP Code Phon e Number [place] [phone] LAB[address] CERNER [facility] (ABNORMAL) HEPATIC FUNCTION PANEL (04/16/2010 12:31 PM EST) athologist Signature Total Protein 7.5 6.4 - 8.3 CERNER gm/dL [facility]ENNI[facility] Albumin 4.4 3.2 - 5.2 CERNER gm/dL [facility] AST 68 (H) 0 - 39 CERNER unit/L [facility] ALT 72 (H) 0 - 55 CERNER unit/L [facility] Alk Phos 91 40 - 120 CERNER unit/L [facility] Total 0.5 0.2 - 1.3 CERNER Bilirubin mg/dL [facility]ILLENNIUM Bili, Direct 0.2 0.0 - 0.3 CERNER mg/dL [facility] Specimen Anatomical Collection Method Collection Time Receive d Time (Source) Location / / Volume Laterality Blood specimen 04/16/2010 12:31 0 (specimen) PM EST 12:51 PM EST Caitlin Dowling LISA CHEMISTRY ORDERABLES Performing Organization Address City/State/ZIP Code Phon e Number [place] [phone]OS[address]ITAL LAB[address] CERNER MILLENNIUM REFLEX LAB-A-DIFF (04/16/2010 12:31 PM EST) P athologist Signature Neutrophils % 61.0 34.0 - CERNER 71.0 % MILLENNIUM Neutr Abs (ANC) 3.13 1.50 - CERNER 6.30 MILLENNIUM x10(3)/mcL Lymphocytes % 22.0 19.0 - CERNER 53.0 % MILLENNIUM Lymphocytes Abs 1.1 1.0 - 3.6 CERNER x10(3)/mcL [facility] Monocytes [...] myelocytes, and promyelo cytes. Blood smears from CBC's yielding IG's will be scanned manually for concor dance. If this scan disagrees with the automated IG or if promyelocytes are not ed, a manual differential will be performed. Shannan Gran Abs 0.01 0.00 - 0.05 x10(3)/mcL CER NER MILLENNIUM Specimen Anatomical Collection Method Collection Time Receive d Time (Source) Location / / Volume Laterality Blood specimen 04/16/2010 12:31 0 (specimen) PM EST 12:51 PM EST Caitlin Dowling LISA HEMATOLOGY ORDERABLES Performing Organization Address City/[facility]/[place] [address] CERNER MILLENNIUM (ABNORMAL) CBC (04/16/2010 12:31 PM EST) P athologist Signature WBC 5.1 4.0 - 10.0 CERNER x10(3)/mcL [facility]ENNIUM RBC 3.97 (L) 4.63 - CERNER 6.08 MILLENNIUM x10(6)/mcL Hemoglobin 12.9 (L) 13.7 - CERNER 17.5 gm/dL MILLENNIUM Hematocrit 38.4 (L) 40.0 - CERNER 51.0 % MILLENNIUM MCV 96.7 (H) 79.0 - CERNER 92.0 fL MILLENNIUM MCH 32.5 (H) 25.6 - CERNER 32.2 pg MILLENNIUM MCHC 33.6 32.0 - CERNER 36.5 gm/dL MILLENNIUM Platelets 173 145 - 370 CERNER x10(3)/mcL MILLENNIUM RDWSD 46.9 (H) 35.0 - CERNER 46.0 fL MILLENNIUM RDWCV 13.3 10.9 - CERNER 14.4 % MILLENNIUM MPV 10.2 9.0 - 12.0 CERNER fL [facility]NI[facility] Specimen Anatomical Collection Method Collection Time Receive d Time (Source) Location / / Volume Laterality Blood specimen 04/16/2010 12:31 0 (specimen) PM EST 12:51 PM EST Caitlin Parra Nitesh GONZALEZ HEMATOLOGY ORDERABLES Performing Organization Address City/[facility]/[place] [address] CERNER MILLENNIUM documented in this encounter Visit Diagnoses Not on filedocumented in this encounter Care Teams De Icer Finisher Relationship Specialty Start Date End Date Maribeth Pastrana MD PCP - General 04/03/10 10/17/10 [facility] GENER[place] [address] documented as of this encounter
--- OUTSIDE RECORDS SUMMARY | 2021-11-30 08:30 | XMS_ITS | Encounter Summary ---
:1955 Author Organization [facility] [place] [address] Care Team Providers Name Role Phone Vinicio Ferris MD Primary Care Provider Reason for Visit Reason Onset Date Comments Medication Refill 01/07/2011 Encounter Details Date Type Department Care Team Description 01/07/2011 Refill Internal Medicine at [facility] Vinicio Ferris MD Pain (Primary Dx) [facility] rive [facility] [place] [phone] GENERAL INTERNAL [phone] MEDICINE [place], [place] [address] (Jorge arzate) Social History Tobacco [...] Marion Tavera APRN [facility] ER DR ORTHOPAEDIC SURG [place], [place] [address] (Wo rk) 01/15/2022 Appointment Radiology Stiven Cervantes MD [facility] Pulmonary Medici nelly [place], [place] [address] (Jorge rk) Scheduled Procedures Name Priority Associated Diagnoses Date/Time DEBRIDEMENT SKIN, SUBCU, MUSCLE, R great toe amp utation, wound LOWER EXTREMITY (WRVU 2.7) closure MODIFIER WOUND VAC R great toe amputation, wound closure documented as of this encounter Visit Diagnoses Diagnosis Pain - Primary Generalized pain documented in this encounter Care Teams Double Spindle Shaper Operator Relationship Specialty Start Date End Date Vinicio Ferris MD PCP - General 10/18/10 11/20/11 [facility] GENERAL [place] [address] documented as of this encounter
--- OUTSIDE RECORDS SUMMARY | 2021-11-30 08:30 | XMS_ITS | Encounter Summary ---
:1955 [place] [address] Care Team Providers Name Role Phone Maribeth Pastrana MD Primary Care Provider Reason for Visit Reason Onset Date Comments Medication Refill 09/17/2010 Encounter Details Date Type Department Care Team Description 09/17/2010 Refill Internal Medicine at [facility] Maribeth Pastrana MD Pain [facility] [place] [address] GENERAL INTERNAL MEDICINE [phone] [place], [place] [address] Social History Tobacco Use Types Packs/Day Years Used Date Never Assessed Sex Assigned at Date Recorded Not on file documented as of this encounter Plan of Treatment Upcoming Encounters Date Type Specialty Care Team Description 12/11/2021 Appointment Radiology 12/11/2021 Office Visit Orthopaedics Marion Tavera APRN [facility] ORTHOPAEDIC SURG [place], [place] [address] (Wo rk) 01/15/2022 Appointment Radiology Stiven Cervantes MD [facility] Pulmonary Medici nelly [place], [place] [address] (Wo rk) Scheduled Procedures Name Priority Associated Diagnoses Date/Time DEBRIDEMENT SKIN, SUBCU, MUSCLE, R great toe amp utation, wound LOWER EXTREMITY (WRVU 2.7) closure MODIFIER WOUND VAC R great toe amputation, wound closure documented as of this encounter Visit Diagnoses Diagnosis Pain Generalized pain documented in this encounter Care Teams Cold Roll Operator Relationship Specialty Start Date End Date Maribeth Pastrana MD PCP - General 04/03/10 10/17/10 [facility] [place] [address] documented as of this encounter
--- OUTSIDE RECORDS SUMMARY | 2021-11-30 08:30 | XMS_ITS | Encounter Summary ---
:1955 Author Organization [facility] [place] [address] Care Team Providers Name Role Phone Maribeth Pastrana MD Primary Care Provider Encounter Details Date Type Department Care Team Description 06/14/2010 Follow-Up Gastroenterology at [facility] Caitlin Dowling APRN [facility] [place] [phone] GASTROENTEROLOGY [phone] DEPT. [place], [place] [address] Social History Tobacco Use Types Packs/Day Years Used Date Never Assessed Sex Assigned at Date Recorded Not on file documented as of this encounter Plan of Treatment Upcoming Encounters Date Type Specialty Care Team Description 12/11/2021 Appointment Radiology 12/11/2021 Office Visit Orthopaedics Marion Tavera APRN [facility] ORTHOPAEDIC SURG [place], [place] [address] (Wo rk) 01/15/2022 Appointment Radiology Stiven Cervantes MD [facility] er Pulmonary Medici nelly [place], [place] [address] (Wo rk) Scheduled Procedures Name Priority Associated Diagnoses Date/Time DEBRIDEMENT SKIN, SUBCU, MUSCLE, R great toe amp utation, wound LOWER EXTREMITY (WRVU 2.7) closure MODIFIER WOUND VAC R great toe amputation, wound closure documented as of this encounter Visit Diagnoses Not on filedocumented in this encounter Care Teams Phlebotomy Program Coordinator Relationship Specialty Start Date End Date Maribeth Pastrana MD PCP - General 04/03/10 10/17/10 [facility] GENERAL [place] [address] documented as of this encounter
--- OUTSIDE RECORDS SUMMARY | 2021-11-30 08:30 | XMS_ITS | Encounter Summary ---
:1955 Author Organization [facility] [place] [address] Care Team Providers Name Role Phone Vinicio Ferris MD Primary Care Provider Reason for Visit Reason Onset Date Comments Medication Refill 10/29/2010 Encounter Details Date Type Department Care Team Description 10/29/2010 Refill Internal Medicine at [facility] Vinicio Ferris MD Pain (Primary Dx) [facility] rive [place] [address] GENERAL INTERNAL [phone] MEDICINE [place], [place] [address] (Jorge arzate) Social History Tobacco [...] Tavera APRN [facility] ER DR ORTHOPAEDIC SURG [place], [place] [address] (Wo rk) 01/15/2022 Appointment Radiology Stiven Cervantes MD [facility] Pulmonary Medici nelly [place], [place] [address] (Jorge rk) Scheduled Procedures Name Priority Associated Diagnoses Date/Time DEBRIDEMENT SKIN, SUBCU, MUSCLE, R great toe amp utation, wound LOWER EXTREMITY (WRVU 2.7) closure MODIFIER WOUND VAC R great toe amputation, wound closure documented as of this encounter Visit Diagnoses Diagnosis Pain - Primary Generalized pain documented in this encounter Care Teams Laboratory Miller Relationship Specialty Start Date End Date Vinicio Ferris MD PCP - General 10/18/10 11/20/11 [facility] GENERAL [place] [address] documented as of this encounter
--- OUTSIDE RECORDS SUMMARY | 2021-11-30 08:30 | XMS_ITS | Encounter Summary ---
:1955 Author Organization [facility] [place] [address] Care Team Providers Name Role Phone Vinicio Marte MD Primary Care Provider Reason for Visit Reason Comments Depression Encounter Details Date Type Department Care Team Description 11/06/2010 Office Visit Psychiatry and Shivani Thornton MD Major depressive Behavioral Health at [facility] ana pradhan, legiha [facility] DR alice, unspecified [facility] PSYCHIATRY DE PT. (Primary Dx) [address] [phone] [address] (Work) [phone] Social History Tobacco Use Types Packs/Day Years Used Date Former Smoker Cigarettes 0.5 42 Smokeless Tobacco: Former User Alcohol Use Standard Drinks/Week Comments Not Asked 0 (1 standard drink = 0.6 oz pure alcoho l) Sex Assigned at Date Recorded Not on file documented as of this encounter Progress Notes Shivani Thornton MD - 11/06/2010 3:41 PM EDT Individual Psychotherapy with EM Office Visit (CPT 80621 (30 min), 49087 (60 min)/KARLEY 5420) (* = required item) *Length of Service: 60 minutes *Interval Hx: Has been having trouble with his feet (pain and numbness in toes). Has been told it's d/t his back. Wonders what I think about his drinking non-alcoholic beer. I suggested he not. Was having things pop in and out of his mind, thoughts about things he's done in the past, started getting paranoid. Not sure when, maybe over a month ago. Stopped Ritalin (not bupropion). Didn't help the symptoms, restarted it. When stopped it, not sure if any sx got worse. Above sx better now. I'm starting to level off. Feeling pretty good today. Ideas about making money have not panned out. Friend committed suicide 2 days ago. He used to come to pt. for advice. Results for [facility] ( ) as of 11/06/2010 15:41 Ref. Range 02/14/2010 12:25 04/16/2010 12:31 08/16/2010 17:14 10/18/2010 11:31 TSH Latest Range: 0.27-4.20 mcIU/mL 4.04 5.31 (H) *Therapeutic Intervention Used (e.g., insight-oriented, supportive, behavioral modification) and Patient's Response: [facility] plus Medication Management (chosen because this seems best approach to facilitate change). *Pertinent Med SE: none. *MSE: Appearance/Behavior: Walking tenderly. Sitting forward in chair. Talkative. Mood/Affect: Full, smiling at times. Thoughts (including *Suicidal/Homicidal Thoughts/Plans): No SI/HI. Other [...] if no med changes listed): 2) I told pt. re TSH, will notify Dr. Marte. Follow-Up Appt: 1 mo. *Coordination of Care: Pt. requests that this note (but not notes in general) be sent to VINICIO MARTE MD (PCP) (pt. understands that this will continue until/less s/he requests otherwise) documented in this encounter Plan of Treatment Upcoming Encounters Date Type Specialty Care Team Description 12/11/2021 Appointment Radiology 12/11/2021 Office Visit Orthopaedics Marion Tavera APRN [facility] ORTHOPAEDIC SURG [place], [place] [address] (Wo rk) 01/15/2022 Appointment Radiology Stiven Cervantes MD [facility] Pulmonary Medici [place], [place] [address] (Wo rk) Scheduled Procedures Name Priority Associated Diagnoses Date/Time DEBRIDEMENT SKIN, SUBCU, MUSCLE, R great toe amp utation, wound LOWER EXTREMITY (WRVU 2.7) closure MODIFIER WOUND VAC R great toe amputation, wound closure documented as of this encounter Visit Diagnoses Diagnosis Major depressive disorder, single episod e, unspecified - Primary documented in this encounter Care Teams Manager Of Enterprise Relationship Specialty Start Date End Date Vinicio Marte MD PCP - General 10/18/10 11/20/11 [facility] [place] [address] documented as of this encounter
--- OUTSIDE RECORDS SUMMARY | 2021-11-30 08:30 | XMS_ITS | Encounter Summary ---
:1955 Author Organization [place] [address] Care Team Providers Name Role Phone Maribeth Pastrana MD Primary Care Provider Encounter Details Date Type Department Care Team Description 10/09/2010 Abstract Internal Medicine at [facility] Anusha Ross, [place] [address] Social History Tobacco Use Types Packs/Day Years Used Date Never Assessed Sex Assigned at Date Recorded Not on file documented as of this encounter Plan of Treatment Upcoming Encounters Date Type Specialty Care Team Description 12/11/2021 Appointment Radiology 12/11/2021 Office Visit Orthopaedics Marion Tavera APRN [facility] ORTHOPAEDIC SURG [place], [place] [address] (Wo rk) 01/15/2022 Appointment Radiology Stiven Cervantes MD [facility] Pulmonary Medici [place], [place] [address] (Wo rk) Scheduled Procedures Name Priority Associated Diagnoses Date/Time DEBRIDEMENT SKIN, SUBCU, MUSCLE, R great toe amp utation, wound LOWER EXTREMITY (WRVU 2.7) closure MODIFIER WOUND VAC R great toe amputation, wound closure documented as of this encounter Visit Diagnoses Not on filedocumented in this encounter Care Teams Customer Service Driver Relationship Specialty Start Date End Date Maribeth Pastrana MD PCP - General 04/03/10 10/17/10 [facility] GENERAL [place] [address] documented as of this encounter
--- OUTSIDE RECORDS SUMMARY | 2021-11-30 08:30 | XMS_ITS | Encounter Summary ---
:1955 Author Organization [facility] [place] [address] Care Team Providers Name Role Phone Vinicio Ferris MD Primary Care Provider Encounter Details Date Type Department Care Team Description 11/08/2010 Hospital Encounter Laboratory Dionte Mckinnon, Hep C w/o coma, chronic; [facility] Hepatitis C; [facility] Methadone use; [facility] health care; [phone] GASTROENTEROLOGY Hepatitis C virus infection [phone] [facility] [place] [address] Social History Tobacco Use Types Packs/Day Years [...] APRN [facility] DR ORTHOPAEDIC SURG [place], [place] [address] (Wo rk) 01/15/2022 Appointment Radiology Stiven Cervantes MD [facility] Pulmonary Medici [place], [place] [address] (Wo rk) Scheduled Procedures Name Priority Associated Diagnoses Date/Time DEBRIDEMENT SKIN, SUBCU, MUSCLE, R great toe amp utation, wound LOWER EXTREMITY (WRVU 2.7) closure MODIFIER WOUND VAC R great toe amputation, wound closure documented as of this encounter Procedures Procedure Name Priority Date/Time Associated Diagnosis Comme nts HCV QUANT Routine 11/08/2010 1:24 PM Results f or this EDT procedure are i n the results section. CMP W/FASTING Routine 11/08/2010 1:24 PM Results for this GLUCOSE EDT procedure are i n the results section. AFP TUMOR MARKER Routine 11/08/2010 1:24 PM Hepatitis C Resul ts for this EDT procedure are i n the results section. PSA Routine 11/08/2010 1:24 PM Preventative health Re sults for this (ULTRASENSITIVE) EDT care procedure a re in the results section. LIPID PANEL (REFLEX Routine 11/08/2010 1:24 PM Preventative he alth Results for this DIRECT LDL) EDT care procedure are i n the results section. HEPATITIS C RNA, Routine 11/08/2010 12:55 Hep C w/o coma, QUANTITATIVE, PCR PM EDT chronic documented in this encounter Results (ABNORMAL) CMP W/FASTING GLUCOSE (11/08/2010 1:24 PM EDT) P athologist Signature Glucose 95 65 - 99 CERNER Fasting mg/dL MILLENNIUM Comment: ?Fasting* Glucose Interpretive C riteria Normal [...] of Diabetes Mellitus, Position Statement from the [place] Diabetes Association. ??Diabete s Care, Volume 33, Supplement 1, May 2009 BUN 23 (H) 10 - 20 mg/dL CERNER MILLENNIU M Creatinine 1.53 (H) 0.80 - 1.50 mg/dL CERNER MILL ENNIUM [...] estions. Chloride 100 98 - 107 mmol/L CERNER MILLENN IUM CO2 26 22 - 31 mmol/L CERNER MILLENNI UM Anion Gap 10 5 - 15 mmol/L CERNER MILLENNIU M Calcium 10.2 8.5 - 10.5 mg/dL CERNER GERBER NIUM Total Protein 8.1 6.4 - 8.3 gm/dL CERNER MIL LENNIUM Albumin 4.7 3.2 - 5.2 gm/dL CERNER MILLENN IUM AST 34 0 - 39 unit/L CERNER MILLENNIU M ALT 32 0 - 55 unit/L CERNER MILLENNIU M Alk Phos 91 40 - 120 unit/L CERNER MILLENN IUM Total Bilirubin 1.0 0.2 - 1.3 mg/dL CERNER M ILLENNIUM Bili, Direct 0.3 0.0 - 0.3 mg/dL CERNER MILL ENNIUM Estimated GFR 47 (L) >=60 CERNER MILLENNIU M Comment: The National [...] Location / / Volume Laterality Blood specimen 11/08/2010 1:24 PM 011 1:37 (specimen) EDT PM EDT Anusha Carter MD CHEMISTRY ORDERABLES Performing Organization Address City/[facility] [place] [address] [facility] [facility] REFLEX LAB-HCV QUANT (11/08/2010 1:24 PM EDT) Component Value Ref Test Analysis Performed At Patholo gist Range Method Time Signature HCV Viral [id number] IU/mL CERNER Load MILLENNIUM HCV Viral Result: [id number] CERNER Load MILLENNIUM Indication for Study: Hepatitis [...] assay is being pe rformed in the [facility] Molecular Pathology Laboratory. Endy Bliss, Ph.D. Director, Molecular Pathology Comment: [VERIFIED DATE]11.14.10 Verified By:Leila Judd (Electronic Signature) Specimen Anatomical Collection Method Collection Time Receive d Time (Source) Location / / Volume Laterality Blood specimen 11/08/2010 1:24 PM 011 9:21 (specimen) EDT AM EDT Dionte Mckinnon MD HEMATOLOGY ORDERABLES Performing Organization Address City/[facility] [place] [address] [facility] [facility] MILLENNIUM PSA (11/08/2010 1:24 PM EDT) P athologist Signature PSA Total 0.13 0.00 - CERNER (Ultrasensitiv 4.00 ng/mL [facility] e) Specimen Anatomical Collection Method Collection Time Receive d Time (Source) Location / / Volume Laterality Blood specimen 11/08/2010 1:24 PM 011 1:37 (specimen) EDT PM EDT Anusha Carter MD CHEMISTRY ORDERABLES Performing Organization Address City/State/ZIP Code [place] [address] CERNATACHA PEREIRAIUM Lipid panel (11/08/2010 1:24 PM EDT) P athologist Signature Chol, Total 158 <=199 mg/dL CERNER MILLENNIUM Comment: Recommendations of the NCEP Adult Treatm ent Panel for the following risk cutoff thresholds for the [place] populatio n: Desirable: <200 mg/dL Borderline High: 200-239 mg/dL High: > or = 240 mg/dL Triglycerides 93 <=149 mg/dL CERNATACHA MILLENN IUM Comment: Reference Range: Normal triglycerides: ??<150 mg/dL Borderline high: ??150-199 mg/dL High: ??200-499 mg/dL Very high: ??>ny=280 mg/dL REUBEN 2001; 285(19):6183-6844 HDL 51 >=40 mg/dL CERNATACHA MCDONALDENNIUM Comment: Reference range: ??Low HDL: ?? < 40 mg/dL ??Normal: ?40-60 mg/dL ??Desirable: > 60 mg/dL REUBEN 2001; 285(19):1180-2870 LDL Cholesterol 88 <=99 mg/dL AMINA DREW Comment: Reference range: ?? Optimal: ?<100 mg/dL ?? Near Optimal/Above Optimal: ?? 100-1 29 mg/dL ?? Borderline high: ?130-159 mg/dL ?? High: ? 160-189 mg/dL ?? Very high: ?>sp=640 mg/dL REUBEN 2001: 285(19):7823-1413 Chol/HDL Ratio 3.1 ratio CERNER MILLENNI UM Comment: A Cholesterol to HDL ratio below 4:1 is desirable. ??Studies suggest that increased CAD risk occurs at ratios abov e 5 for females and above 6 for men. ? [place] Heart Association ??(htt p://www.americanheart.org) ? Nina Int Med, 1994; 121:641 ? AM J Med, 1998; 105(1A):48S Specimen Anatomical Collection Method Collection Time Receive d Time (Source) Location / / Volume Laterality Blood specimen 11/08/2010 1:24 PM 011 1:37 (specimen) EDT PM EDT Anusha Carter MD CHEMISTRY ORDERABLES Performing Organization Address City/State/ZIP Code Phon e Number [address] [employer] AFP tumor marker (11/08/2010 1:24 PM EDT) P athologist Signature AFP 6 <=19 ng/mL CERNER [employer] Specimen Anatomical Collection Method Collection Time Receive d Time (Source) Location / / Volume Laterality Blood specimen 11/08/2010 1:24 PM 011 8:25 (specimen) EDT AM EDT Anusha Carter MD CHEMISTRY ORDERABLES Performing Organization Address City/State/ZIP Code Phon e Number [address] [employer] documented in this encounter Visit Diagnoses Diagnosis Hep C w/o coma, chronic Chronic hepatitis C without mention of h epatic coma Hepatitis C Unspecified viral hepatitis C without he patic coma Methadone use Opioid type dependence, unspecified Preventative health care Routine general medical examination at a health care facility Hepatitis C virus infection Unspecified viral hepatitis C without he patic coma documented in this encounter Care Teams Bandage Winding Machine Operator Relationship Specialty Start Date End Date Vinicio Ferris MD PCP - General 10/18/10 11/20/[address] [facility] [address] [place] [address] documented as of this encounter
--- OUTSIDE RECORDS SUMMARY | 2021-11-30 08:30 | XMS_ITS | Encounter Summary ---
:1955 Author Organization [facility] [place] [address] Care Team Providers Name Role Phone Maribeth Pastrana MD Primary Care Provider Encounter Details Date Type Department Care Team Description 07/31/2010 Office Visit Psychiatry and Behavioral Hu, Everotn Pollock MD [facility] Jenni [place] [address] [place] [address] [phone] (Wo rk) Social History Tobacco Use Types Packs/Day Years Used Date Never Assessed Sex Assigned at Date Recorded Not on file documented as of this encounter Plan of Treatment Upcoming Encounters Date Type Specialty Care Team Description 12/11/2021 Appointment Radiology 12/11/2021 Office Visit Orthopaedics Marion Tavera APRN [facility] ORTHOPAEDIC SURG [place], [place] [address] (Wo rk) 01/15/2022 Appointment Radiology Stiven Cervantes MD [facility] Pulmonary Medici nelly [place], [place] [address] (Wo rk) Scheduled Procedures Name Priority Associated Diagnoses Date/Time DEBRIDEMENT SKIN, SUBCU, MUSCLE, R great toe amp utation, wound LOWER EXTREMITY (WRVU 2.7) closure MODIFIER WOUND VAC R great toe amputation, wound closure documented as of this encounter Visit Diagnoses Not on filedocumented in this encounter Care Teams Commercial Credit Portfolio Manager Relationship Specialty Start Date End Date Maribeth Pastrana MD PCP - General 04/03/10 10/17/10 [facility] [place] [address] documented as of this encounter
--- OUTSIDE RECORDS SUMMARY | 2021-11-30 08:30 | XMS_ITS | Encounter Summary ---
:1955 Author Organization [facility] Address [place] [id number] Care Team Providers Name Role Phone Vinicio Ferris MD Primary Care Provider Reason for Visit Reason Onset Date Comments Other 12/21/2010 Late Cancellation Encounter Details Date Type Department Care Team Description 12/21/2010 Telephone Psychiatry and Shivani Thornton MD Other (Late Behavioral Health at [facility] C ancellation) [facility] PSYCHI[place]RY [place] [address] [place] [phone] Social History Tobacco Use Types Packs/Day Years Used Date Former Smoker Cigarettes 0.5 42 Smokeless Tobacco: Former User Alcohol Use Standard Drinks/Week Comments Not Asked 0 (1 standard drink = 0.6 oz pure alcoho l) Sex Assigned at Date Recorded Not on file documented as of this encounter Miscellaneous Notes Telephone Encounter - Shivani Thornton MD - 12/21/2010 3:18 PM EDT Pt. cancelled today's appointment less than 24 hours in advance because of an unexpected trip. I called pt. and left message that if he cancelled less than 24 hours in advance again in the next 6months, I would not be able to see him for 6 months after that, but would prescribe for him for 1 month after that. documented in this encounter Plan of Treatment Upcoming Encounters Date Type Specialty Care Team Description 12/11/2021 Appointment Radiology 12/11/2021 Office Visit Orthopaedics Marion Tavera APRN [facility] ORTHOPAEDIC SURG [place], [place] [address] (Wo rk) 01/15/2022 Appointment Radiology Stiven Cervantes MD [facility] Pulmonary Medici [place], [place] [address] (Wo rk) Scheduled Procedures Name Priority Associated Diagnoses Date/Time DEBRIDEMENT SKIN, SUBCU, MUSCLE, R great toe amp utation, wound LOWER EXTREMITY (WRVU 2.7) closure MODIFIER WOUND VAC R great toe amputation, wound closure documented as of this encounter Visit Diagnoses Not on filedocumented in this encounter Care Teams Slitter Service And Setter Relationship Specialty Start Date End Date Vinicio Ferris MD PCP - General 10/18/10 11/20/11 [facility] GENERAL [place] [address] documented as of this encounter
--- OUTSIDE RECORDS SUMMARY | 2021-11-30 08:30 | XMS_ITS | Encounter Summary ---
:1955 Author Organization [facility] [place] [address] Care Team Providers Name Role Phone Vinicio Ferris MD Primary Care Provider Reason for Visit Reason Comments Follow-up pt following up on his feet Encounter Details Date Type Department Care Team Description 10/18/2010 Follow-Up Internal Medicine at Lauren Ferris MD [facility] [place] [address] Methadone use (Primary Dx); [facility] Brian Carmona MD [facility] [place] [address] Hepatitis C; [place] [address] Social History Tobacco Use Types Packs/Day Years Used Date Former Smoker Cigarettes 0.5 42 Smokeless Tobacco: Former User Alcohol Use Standard Drinks/Week Comments Not Asked 0 (1 standard drink = 0.6 oz pure alcoho l) Sex Assigned at Date Recorded Not on file documented as of this encounter Last Filed Vital Signs Vital Sign Reading Time Taken Comments Blood Pressure 138/82 10/18/2010 10:22 AM EDT Pulse 68 10/18/2010 10:22 AM EDT Temperature - - Respiratory Rate - - Oxygen Saturation - - Inhaled Oxygen Concentration - - Weight - - Height - - Body Mass Index - - documented in this encounter Progress Notes Brian Carmona MD - 10/18/2010 11:05 AM EDT The case was discussed at the time of the visit or immediately after the visit. The assessment and plan were formulated in discussion with me and I agree with them as documented. I have reviewed the history, physical exam, assessment and plan with the resident. Major issues discussed today: 55 yo man, recently completed treatment for Hep C. Has chronic LBP, bilat THR, on methadone 40 mg QID for chronic pain. Other pains - multiple joints Depression ADHD HTN H/o polysubstance abuse Plan: Continue current regimen, after a thorough discussion again of risks and benefits of methadonemaintenance. Contract reviewed. Hepatoma screening with RUQ ultrasound. Urine drug screen. Identification of goals of patient- healthcare goals. T Vinicio Ferris MD - 10/18/2010 10:22 AM EDT GIM Follow Up Note CC: f/u medical problems HPI: Mr. Wahl is a 55 year old male who presents today for follow up. At our last appointment, he was fairly drowsy and tired and I was concerned about his chronic methadone use and whether the dosingneeds to be adjusted. He was apologetic during the interview and I followed up with him via telephone and he reassured me that he was feeling better. Today, he presents for follow up and is overall feeling much better. He again is apologetic about his behavior at our last appointment and is noticeablymuch more interactive and awake/alert today. He has seen a medical office administrator in the interim for LE neuropathy of his toes, felt to be secondary to his recent Hep C treatment. He states that this is stable, not causing significant pain, but more numbness of his toes. His chronic pain otherwise is largely unchanged and reasonable stable on the current methadone dosing. He has no other significant complaints today. PMHx/Problem List: #Hepatitis C -Genotype:2b -Unclear when acquired -RUQ U/S 08- no evidence of cirrhosis -Liver biopsy-07/18 ---Pathologic Diagnosis--- Liver, needle biopsy specimen showing changes consistent with chronic hepatitis C, stage 3-4/4, grade 2/4 (mild activity); concomittant severe alcoholic/nonalcoholic steatohepatitis/steatofibrosis. -Started peg interferon and ribavarin 08/19 -->stopped 07/20. 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 MRI and surgical evaluation deferred per patient request #HTN -Atenolol 50 bid -On Dyazide 37.5 -Last BMP normal 02/18 #Polysubstance abuse -Hx of Alcohol abuse. Abstinent since 01/18 -Nicotine 3 cigs/day. Smoker x 30yrs (2PPD) -H/o narcotic abuse #MDD- On Wellbutrin. Follows closely with psychiatry #ADHD-On Ritalin #GERD-Takes prilosec. 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 Authorizing Provider methadone (DOLOPHINE) 10 mg tablet Take 4 tablets by mouth 4 times daily for 14 days. Two week script next due October [address] Celina Angelo in absence of Dr. Ferris 10/15/10 10/29/10 Raiza Angelo MD methylphenidate (RITALIN) 20 mg tablet Take 1 tablet by mouth 4 times daily. For ADHD. 10/01/10 Da-Delphine Thornton MD ACETAMINOPHEN/DP-HYDRAM HCL (TYLENOL PM ORAL) Take by mouth as needed. 08/16/10 Historical Provider, diaZEPam (VALIUM) 5 mg tablet 5 mg, PO, Three times daily i daily prn 07/31/10 atenolol (TENORMIN) 50 mg tablet 50 MG = 1 Tablet(s) PO Twice daily 07/31/10 triamterene-hydrochlorothiazide (DYAZIDE) 37.5-25 mg per capsule 1 Capsule(s) PO Once daily 07/31/10 buPROPion (WELLBUTRIN XL) 300 mg 24 hr tablet 300 MG = 1 Tablet(s), PO, Once daily 07/31/10 triamcinolone (KENALOG) 0.025 % cream 1 Appl(s), Top, Twice daily 07/31/10 Allergies: No Known Allergies Family History: -Mother: Htn, alive -Father: Htn, alive -Other family members: Denies Social History: -Tobacco: 3 cigs/day.. 60 pack yr smoking history. -Alcohol: Former etoh abuse. Abstinent since 01/18 -Other Drug Use: IVDA in the s -Living conditions: . 2 children. Disabled. 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 -Occupation: On Disability. Prevention: -CAD prevention: -Fasting Lipids: LAB RESULTS: [id number] [facility] 02/03/2008 07 AM Cholesterol 154 * High Density Lipoprotein Cholesterol 28 L * CHOL/HDL 5.5 * Triglycerides 189 H * Low Density Lipoprotein Cholesterol 88 * -Fasting glucose: None -Immunizations: -Td:Unknown -Hepatitis: 2009 -Colorectal Cancer Screenin. WNL Due q10y -PSA: 0.66 (01/2008) -Smoking Cessation: Has cut down significantly, but unwilling to completely quit Review of Systems: General: (-)wt loss , (+)fatigue HEENT: (-)headache, (-)change in vision (-) earache, (-) sore throat CV:(-)chest pain (-) palpitations (-)orthopnea (-)PND Resp: (-) SOB (-) cough (-) Dyspnea on exertion GI: (-)Abd. pain (-) constipation (-) diarrhea (-) vomiting : (-) dysuria (-)frequency (-) hematuria (-) discharge (+) occasional dribbling MSK: (+)low back pain, neck pain, shoulder pain (-) weakness Endo: (-)heat/cold intolerance (-) polyuria/polydipsia Skin: (-) rashes (-) skin/hair changes Neurological: (+) numbness/tingling of toes bilaterally (-) seizures Hematological: (-) bleeding (-) easy bruising Physical Exam: Filed Vitals: 10/18/10 1022 BP: 138/82 Pulse: 68 General: Much more awake and alert, mental status appropriate, NAD HEENT: NC/AT, no JVD, no thyromegaly, no lymphadenopathy, no icterus CV: normal S1, S2, Reg rate/rhythm, no m/r/g Resp: clear to auscultation b/l, no wheeze/rhonchi/rales Abd: soft, non tender, non distended, (+) bowel sounds, no organomegaly Ext: no edema, pulses 2+ No stigmata of liver disease noted Assessment/Plan: Mr. Wahl is a 55 year old man here for follow up today. Problem based assessment and plan detailed below. #Hepatitis C -Completed rx and last viral load undetectable He will -Continue to follow up with GI -RUQ U/S, CMP and AFP ordered for hepatoma screening -VL to be checked per GI #Chronic pain -We had a long discussion today regarding manager long term care goals/plans regarding his methadone. I was extremely worried at his last visit because he appeared groggy and planned on tapering methadone today. However, today he is much more appropriate and still reports significant ongoing pain. We discussed goals and he wants to remain as functional as possible and feels that the methadone has saved his life. I still think that we do need to attempt to taper the dose somewhat, but the time does not appear appropriate right now. Ideally, I think I need to see him more frequently to monitor his symptoms and we will continue to engage in conversations regarding manager long term care plan. We discussed the importance of not missing any appointments and to follow through with recommendations. Will also obtain a urine toxscreen today. #Hypertension BP appears well controlled in office. Will con't current management #Psychiatric history Follows very closely with psychiatry regarding depression and ADHD. Will con't Wellbutryin and ritalin as recommended #Smoking Cessation Discussed again. Has cut down but not ready to quit #HCM: [place] due 2018. PSA ordered. Fasting glucose/lipids ordered. RTC in 3 months for f/u documented in this encounter Plan of Treatment Upcoming Encounters Date Type Specialty Care Team Description 12/11/2021 Appointment Radiology 12/11/2021 Office Visit Orthopaedics Marion Tavera APRN [facility] ER ORTHOPAEDIC SURG [place], [place] [address] (Wo rk) 01/15/2022 Appointment Radiology Stiven Cervantes MD [facility] Pulmonary Medici nelly [place], [place] [address] (Wo rk) Scheduled Procedures Name Priority Associated Diagnoses Date/Time DEBRIDEMENT SKIN, SUBCU, MUSCLE, R great toe amp utation, wound LOWER EXTREMITY (WRVU 2.7) closure MODIFIER WOUND VAC R great toe amputation, wound closure documented as of this encounter Procedures Procedure Name Priority Date/Time Associated Diagnosis Comme nts RAPID DRUG SCREEN Routine 10/18/2010 11:31 AM Methadone use Re sults for this W/O CONFIRMATION, EDT procedure are in URINE the results section. documented in this encounter Results AFP tumor marker (11/08/2010 1:24 PM EDT) athologist Signature AFP 6 <=19 ng/mL [facility] XTWIP Specimen Anatomical Collection Method Collection Time Receive d Time (Source) Location / / Volume Laterality Blood specimen 11/08/2010 1:24 PM 011 8:25 (specimen) EDT AM EDT Anusha Carter MD CHEMISTRY ORDERABLES Performing Organization Address City/State/[place] [address] [facility] [employer] Lipid panel (11/08/2010 1:24 PM EDT) athologist Signature Chol, Total 158 <=199 mg/dL [facility] [employer] Comment: Recommendations of the NCEP Adult Treatm ent Panel for the following risk cutoff thresholds for the [place] populatio n: Desirable: <200 mg/dL Borderline High: 200-239 mg/dL High: > or = 240 mg/dL Triglycerides 93 <=149 mg/dL [facility] [employer] Comment: Reference Range: Normal triglycerides: ??<150 mg/dL Borderline high: ??150-199 mg/dL High: ??200-499 mg/dL Very high: ??>yo=876 mg/dL REUBEN 2001; 285(19):6042-9858 HDL 51 >=40 mg/dL AMINA MARTIN Comment: Reference range: ??Low HDL: ?? < 40 mg/dL ??Normal: ?40-60 mg/dL ??Desirable: > 60 mg/dL REUBEN 2001; 285(19):7735-3540 LDL Cholesterol 88 <=99 mg/dL AMINA DREW Comment: Reference range: ?? Optimal: ?<100 mg/dL ?? Near Optimal/Above Optimal: ?? 100-1 29 mg/dL ?? Borderline high: ?130-159 mg/dL ?? High: ? 160-189 mg/dL ?? Very high: ?>hm=995 mg/dL REUBEN 2001: 285(19):8090-6370 Chol/HDL Ratio 3.1 ratio AMINA TATE UM Comment: A Cholesterol to HDL ratio below 4:1 is desirable. ??Studies suggest that increased CAD risk occurs at ratios abov e 5 for females and above 6 for men. ? [place] Heart Association ??(htt p://www.americanheart.org) ? Nina Int Med, 1994; 121:641 ? AM J Med, 1998; 105(1A):48S Specimen Anatomical Collection Method Collection Time Receive d Time (Source) Location / / Volume Laterality Blood specimen 11/08/2010 1:24 PM 011 1:37 (specimen) EDT PM EDT Anusha Carter MD CHEMISTRY ORDERABLES Performing Organization Address City/State/ZIP Code Phon e Number [place] [phone] AMINA MARTIN PSA (11/08/2010 1:24 PM EDT) athologist Signature PSA Total 0.13 0.00 - CERNER (Ultrasensitiv 4.00 ng/mL MILLENNIUM e) Specimen Anatomical Collection Method Collection Time Receive d Time (Source) Location / / Volume Laterality Blood specimen 11/08/2010 1:24 PM 011 1:37 (specimen) EDT PM EDT Anusha Carter MD CHEMISTRY ORDERABLES Performing Organization Address City/State/ZIP Code Phon e Number [place] [phone] AMINA [facility] Toxicology screen, urine (10/18/2010 11:31 AM EDT) athologist Signature U BR[place] Screen See Note CERNER MILLENNIUM Comment: Urine drug of abuse results: ?Methadone Presumptive Positive ?Benzodiazepines Presumptive Pos itive ??Cocaine metabolites Negative ? Amphetamines Negative Marijuana metabolites Negative ?Opiates Negative ? Barbiturates Negative ? Tricyclics Negative The urine drug testing device screens fo r: Amphetamines (AMP), Opiates (OPI), Cocai ne metabolite (YARITZA), Marijuana metabolites (THC), Benzodiazepines (BZO) , Barbiturates (BAR), Methadone (MTD)and Tricyclic antidepressants (TCA) . ??The amphetamine screen detects either D-amphetamine or D-methamphetamin e abuse. ??Be aware that this is only a QUALITATIVE SCREEN and must be used in c onjunction ??with your clinical assessment of the patient. ??Results are NOT routinely confirmed by highly-defined methods, and are therefor e reported as presumptive positive screens -such qualitative SCREEN RESULT S CANNOT BE USED FOR MEDICO-LEGAL purposes. ??As with any qualitative drug screening device, there can be occasional false positive readings from similar or dissimilar crossreacting drugs. Specimen Anatomical Collection Method Collection Time Receive d Time (Source) Location / / Volume Laterality Urine specimen 10/18/2010 11:31 1 (specimen) AM EDT 11:39 AM EDT Anusha Carter MD URINE ORDERABLES Performing Organization Address City/State/[place] [address] [facility] documented in this encounter Visit Diagnoses Diagnosis Methadone use - Primary Opioid type dependence, unspecified Hepatitis C Unspecified viral hepatitis C without he patic coma Preventative health care Routine general medical examination at a health care facility documented in this encounter Care Teams Route Specialist Relationship Specialty Start Date End Date Vinicio Ferris MD PCP - General 10/18/10 11/20/11 [facility] [place] [address] documented as of this encounter
--- OUTSIDE RECORDS SUMMARY | 2021-11-30 08:30 | XMS_ITS | Encounter Summary ---
:1955 Author Organization [facility] Address [place] [id number] Care Team Providers Name Role Phone Vinicio Ferris MD Primary Care Provider Reason for Visit Reason Onset Date Comments Other 12/07/2010 Cancelled Less Than 24 Hours Encounter Details Date Type Department Care Team Description 12/07/2010 Telephone Psychiatry and Shivani Thornton MD Other (Cancelled Less Behavioral Health at [facility] T currie 24 Hours) [facility] [place] [address] [place] [phone] Social History Tobacco Use Types Packs/Day Years Used Date Former Smoker Cigarettes 0.5 42 Smokeless Tobacco: Former User Alcohol Use Standard Drinks/Week Comments Not Asked 0 (1 standard drink = 0.6 oz pure alcoho l) Sex Assigned at Date Recorded Not on file documented as of this encounter Miscellaneous Notes Telephone Encounter - Shivani Thornton MD - 12/07/2010 1:24 PM EDT Pt. cancelled yesterday's appointment less than 24 hours before appointment. He has also done this 09/06, 09/21, 10/25, 10/26, and no-showed on 10/09. documented in this encounter Plan of Treatment Upcoming Encounters Date Type Specialty Care Team Description 12/11/2021 Appointment Radiology 12/11/2021 Office Visit Orthopaedics Marion Tavera APRN [facility] ER DR ORTHOPAEDIC SURG [place], [place] [address] (Wo rk) 01/15/2022 Appointment Radiology Stiven Cervantes MD [facility] Pulmonary Medici nelly [place], [place] [address] (Wo rk) Scheduled Procedures Name Priority Associated Diagnoses Date/Time DEBRIDEMENT SKIN, SUBCU, MUSCLE, R great toe amp utation, wound LOWER EXTREMITY (WRVU 2.7) closure MODIFIER WOUND VAC R great toe amputation, wound closure documented as of this encounter Visit Diagnoses Not on filedocumented in this encounter Care Teams Family Member Caretaker Relationship Specialty Start Date End Date Vinicio Ferris MD PCP - General 10/18/10 11/20/11 [facility] GENERAL [place] [address] documented as of this encounter
--- OUTSIDE RECORDS SUMMARY | 2021-11-30 08:30 | XMS_ITS | Encounter Summary ---
:1955 Author Organization [facility] [place] [address] Care Team Providers Name Role Phone Maribeth Pastrana MD Primary Care Provider Reason for Visit Reason Onset Date Comments Stress 09/26/2010 Encounter Details Date Type Department Care Team Description 09/26/2010 Telephone [place] [facility] Caitlin Dowling APRN Stress [facility] [place] [phone] GASTROENTEROLOGY [phone] DEPT. [place], [place] [address] Social History Tobacco Use Types Packs/Day Years Used Date Never Assessed Sex Assigned at Date Recorded Not on file documented as of this encounter Miscellaneous Notes Telephone Encounter - Ruma Botello RN - 09/26/2010 10:04 AM EDT Pt calling to report that since stopping wellbutrin, he has developed increased anxiety and depression. He also notes that he has had a recent increase in situational stress. Denies S/H ideation. Has an appt with PCP on Friday. Agrees to go to ED if he develops S/H ideation, or if symptoms significantly worsen prior to friday. He is aware of VL needed in November and February, and will call close to that time when he determines if he will have labs drawn here or at an external lab. documented in this encounter Plan of Treatment Upcoming Encounters Date Type Specialty Care Team Description 12/11/2021 Appointment Radiology 12/11/2021 Office Visit Orthopaedics Marion Tavera APRN [facility] ORTHOPAEDIC SURG [place], [place] [address] (Wo rk) 01/15/2022 Appointment Radiology Stiven Cervantes MD [facility] Pulmonary Medici [place], [place] [address] (Wo rk) Scheduled Procedures Name Priority Associated Diagnoses Date/Time DEBRIDEMENT SKIN, SUBCU, MUSCLE, R great toe amp utation, wound LOWER EXTREMITY (WRVU 2.7) closure MODIFIER WOUND VAC R great toe amputation, wound closure documented as of this encounter Visit Diagnoses Not on filedocumented in this encounter Care Teams Food Service Driver Relationship Specialty Start Date End Date Maribeth Pastrana MD PCP - General 04/03/10 10/17/10 [facility] GENERAL [place] [address] documented as of this encounter
--- OUTSIDE RECORDS SUMMARY | 2021-11-30 08:30 | XMS_ITS | Encounter Summary ---
:1955 Author Organization [facility] [place] [address] Care Team Providers Name Role Phone Maribeth Pastrana MD Primary Care Provider Encounter Details Date Type Department Care Team Description 08/06/2010 Office Visit Internal Medicine at [facility] Vinicio Ferris MD [facility] GENER[place] [address] [facility] Raiza Saenz MD [facility] GENERAL [place] [address] [place] [address] Social History Tobacco Use Types Packs/Day Years Used Date Never Assessed Sex Assigned at Date Recorded Not on file documented as of this encounter Plan of Treatment Upcoming Encounters Date Type Specialty Care Team Description 12/11/2021 Appointment Radiology 12/11/2021 Office Visit Orthopaedics Marion Tavera APRN [facility] ER ORTHOPAEDIC SURG [place], [place] [address] (Wo rk) 01/15/2022 Appointment Radiology Stiven Cervantes MD [facility] er Pulmonary Mediccharlie villegas [place], [place] [address] (Wo rk) Scheduled Procedures Name Priority Associated Diagnoses Date/Time DEBRIDEMENT SKIN, SUBCU, MUSCLE, R great toe amp utation, wound LOWER EXTREMITY (WRVU 2.7) closure MODIFIER WOUND VAC R great toe amputation, wound closure documented as of this encounter Visit Diagnoses Not on filedocumented in this encounter Care Teams Biometrics Instructor Relationship Specialty Start Date End Date Maribeth Pastrana MD PCP - General 04/03/10 10/17/10 [facility] GENERAL [place] [address] documented as of this encounter
--- OUTSIDE RECORDS SUMMARY | 2021-11-30 08:30 | XMS_ITS | Encounter Summary ---
:1955 Author Organization [facility] [place] [address] Care Team Providers Name Role Phone Vinicio Ferris MD Primary Care Provider Encounter Details Date Type Department Care Team Description 12/07/2010 Abstract Psychiatry and Behavioral Hu, Everton Pollock MD Health at [facility] Jenni hammer [place] [address] [place] [address] [phone] (Wo rk) Social History Tobacco Use Types [...] APRN [facility] ORTHOPAEDIC SURG [place], [place] [address] (Wo rk) 01/15/2022 Appointment Radiology Stiven Cervantes MD [facility] Pulmonary Medici nelly [place], [place] [address] (Wo rk) Scheduled Procedures Name Priority Associated Diagnoses Date/Time DEBRIDEMENT SKIN, SUBCU, MUSCLE, R great toe amp utation, wound LOWER EXTREMITY (WRVU 2.7) closure MODIFIER WOUND VAC R great toe amputation, wound closure documented as of this encounter Visit Diagnoses Not on filedocumented in this encounter Care Teams Venue Manager Relationship Specialty Start Date End Date Vinicio Ferris MD PCP - General 10/18/10 11/20/[address] [facility] [address] [facility] [address] documented as of this encounter
--- OUTSIDE RECORDS SUMMARY | 2021-11-30 08:30 | XMS_ITS | Encounter Summary ---
:1955 Author Organization [place] [address] Care Team Providers Name Role Phone Maribeth Pastrana MD Primary Care Provider Reason for Visit Reason Onset Date Comments Medication Refill 10/01/2010 Encounter Details Date Type Department Care Team Description 10/01/2010 Refill Psychiatry and Behavioral HuEverton MD [facility] Jenni hammer [place] [address] [place] [address] [phone] (Wo rk) Social History Tobacco Use Types Packs/Day Years Used Date Never Assessed Sex Assigned at Date Recorded Not on file documented as of this encounter Plan of Treatment Upcoming Encounters Date Type Specialty Care Team Description 12/11/2021 Appointment Radiology 12/11/2021 Office Visit Orthopaedics Marion Tavera APRN [facility] ORTHOPAEDIC SURG [place], [place] [address] (Wo rk) 01/15/2022 Appointment Radiology Stiven Cervantes MD [facility] Pulmonary Medici [place], [place] [address] (Wo rk) Scheduled Procedures Name Priority Associated Diagnoses Date/Time DEBRIDEMENT SKIN, SUBCU, MUSCLE, R great toe amp utation, wound LOWER EXTREMITY (WRVU 2.7) closure MODIFIER WOUND VAC R great toe amputation, wound closure documented as of this encounter Visit Diagnoses Not on filedocumented in this encounter Care Teams Senior Courtroom Clerk Relationship Specialty Start Date End Date Maribeth Pastrana MD PCP - General 04/03/10 10/17/10 [facility] GENER[place] [address] documented as of this encounter
--- OUTSIDE RECORDS SUMMARY | 2021-11-30 08:30 | XMS_ITS | Encounter Summary ---
:1955 Author Organization [facility] [place] [address] Care Team Providers Name Role Phone Maribeth Pastrana MD Primary Care Provider Reason for Visit Reason Onset Date Comments Medication Refill 09/17/2010 Encounter Details Date Type Department Care Team Description 09/17/2010 Refill Internal Medicine at [facility] Maribeth Pastrana MD Pain (Primary Dx) [facility] Jenni rivpepito [facility] [place] [address] GENERAL INTERNAL [phone] MEDICINE [place], [place] [address] Social History Tobacco Use Types Packs/Day Years Used Date Never Assessed Sex Assigned at Date Recorded Not on file documented as of this encounter Plan of Treatment Upcoming Encounters Date Type Specialty Care Team Description 12/11/2021 Appointment Radiology 12/11/2021 Office Visit Orthopaedics Marion Tavera APRN [facility] ORTHOPAEDIC SURG [place], [place] [address] (Wo rk) 01/15/2022 Appointment Radiology Stiven Cervantes MD [facility] Pulmonary Medici nelly [place], [place] [address] (Wo rk) Scheduled Procedures Name Priority Associated Diagnoses Date/Time DEBRIDEMENT SKIN, SUBCU, MUSCLE, R great toe amp utation, wound LOWER EXTREMITY (WRVU 2.7) closure MODIFIER WOUND VAC R great toe amputation, wound closure documented as of this encounter Visit Diagnoses Diagnosis Pain - Primary Generalized pain documented in this encounter Care Teams Rn Supplemental Relationship Specialty Start Date End Date Maribeth Pastrana MD PCP - General 04/03/10 10/17/10 [facility] [place] [address] documented as of this encounter
--- OUTSIDE RECORDS SUMMARY | 2021-11-30 08:30 | XMS_ITS | Encounter Summary ---
:1955 Author Organization [facility] [place] [address] Care Team Providers Name Role Phone Maribeth Pastrana MD Primary Care Provider Encounter Details Date Type Department Care Team Description 04/16/2010 Hospital Encounter Occupational Medicine at [facility] [place] [address] GASTROENTEROLOGY [place], [place] [address] (Wo rk) Social History Tobacco Use Types Packs/Day Years Used Date Never Assessed Sex Assigned at Date Recorded Not on file documented as of this encounter Plan of Treatment Upcoming Encounters Date Type Specialty Care Team Description 12/11/2021 Appointment Radiology 12/11/2021 Office Visit Orthopaedics Marion Tavera APRN [facility] ORTHOPAEDIC SURG [place], [place] [address] (Wo rk) 01/15/2022 Appointment Radiology Stiven Cervantes MD [facility] Pulmonary Medici [place], [place] [address] (Wo rk) Scheduled Procedures Name Priority Associated Diagnoses Date/Time DEBRIDEMENT SKIN, SUBCU, MUSCLE, R great toe amp utation, wound LOWER EXTREMITY (WRVU 2.7) closure MODIFIER WOUND VAC R great toe amputation, wound closure documented as of this encounter Visit Diagnoses Not on filedocumented in this encounter Care Teams Electrical Controls Engineer Relationship Specialty Start Date End Date Maribeth Pastrana MD PCP - General 04/03/10 10/17/10 [facility] [place] [address] documented as of this encounter
--- OUTSIDE RECORDS SUMMARY | 2021-11-30 08:30 | XMS_ITS | Encounter Summary ---
:1955 Author Organization [facility] [place] [address] Care Team Providers Name Role Phone Maribeth Pastrana MD Primary Care Provider Encounter Details Date Type Department Care Team Description 04/18/2010 Follow-Up Gastroenterology at [facility] Caitlin Dowling [place] [facility] [place] [address] GASTROENTEROLOGY [phone] DEPT[address] [place], [place] [address] Social History Tobacco Use Types Packs/Day Years Used Date Never Assessed Sex Assigned at Date Recorded Not on file documented as of this encounter Plan of Treatment Upcoming Encounters Date Type Specialty Care Team Description 12/11/2021 Appointment Radiology 12/11/2021 Office Visit Orthopaedics Marion Tavera APRN [facility] ORTHOPAEDIC [place], [place] [address] (Wo rk) 01/15/2022 Appointment Radiology Stiven Cervantes MD [facility] Pulmonary Medici nelly [place], [place] [address] (Wo rk) Scheduled Procedures Name Priority Associated Diagnoses Date/Time DEBRIDEMENT SKIN, SUBCU, MUSCLE, R great toe amp utation, wound LOWER EXTREMITY (WRVU 2.7) closure MODIFIER WOUND VAC R great toe amputation, wound closure documented as of this encounter Visit Diagnoses Not on filedocumented in this encounter Care Teams Hat Checker Relationship Specialty Start Date End Date Maribeth Pastrana MD PCP - General 04/03/10 10/17/10 [facility] [place] [address] documented as of this encounter
--- OUTSIDE RECORDS SUMMARY | 2021-11-30 08:30 | XMS_ITS | Encounter Summary ---
:1955 Author Organization [facility] [place] [address] Care Team Providers Name Role Phone Maribeth Pastrana MD Primary Care Provider Encounter Details Date Type Department Care Team Description 04/19/2010 Office Visit Psychiatry and Behavioral Hu, Everton Pollock MD [facility] Jenni hammer [place] [address] [place] [address] [phone] (Wo rk) Social History Tobacco Use Types Packs/Day Years Used Date Never Assessed Sex Assigned at Date Recorded Not on file documented as of this encounter Plan of Treatment Upcoming Encounters Date Type Specialty Care Team Description 12/11/2021 Appointment Radiology 12/11/2021 Office Visit Orthopaedics Marion Tavera APRN [facility] ORTHOPAEDIC SURG [place], [place] [address] (Wo rk) 01/15/2022 Appointment Radiology Stiven Cervantes MD [facility] Pulmonary Medici nelly [place], [place] [address] (Wo rk) Scheduled Procedures Name Priority Associated Diagnoses Date/Time DEBRIDEMENT SKIN, SUBCU, MUSCLE, R great toe amp utation, wound LOWER EXTREMITY (WRVU 2.7) closure MODIFIER WOUND VAC R great toe amputation, wound closure documented as of this encounter Visit Diagnoses Not on filedocumented in this encounter Care Teams Insurance Executive Relationship Specialty Start Date End Date Maribeth Pastrana MD PCP - General 04/03/10 10/17/10 [facility] [place] [address] documented as of this encounter
--- OUTSIDE RECORDS SUMMARY | 2021-11-30 08:30 | XMS_ITS | Encounter Summary ---
:1955 Author Organization [facility] [place] [address] Care Team Providers Name Role Phone Maribeth Pastrana MD Primary Care Provider Encounter Details Date Type Department Care Team Description 10/17/2010 Abstract Internal Medicine at [facility] [place] [address] Social History Tobacco Use Types Packs/Day Years Used Date Never Assessed Sex Assigned at Date Recorded Not on file documented as of this encounter Plan of Treatment Upcoming Encounters Date Type Specialty Care Team Description 12/11/2021 Appointment Radiology 12/11/2021 Office Visit Orthopaedics Marion Tavera APRN [facility] ORTHOPAEDIC SURG [place], [place] [address] (Wo rk) 01/15/2022 Appointment Radiology Stiven Cervantes MD [facility] Pulmonary Medici [place], [place] [address] (Wo rk) Scheduled Procedures Name Priority Associated Diagnoses Date/Time DEBRIDEMENT SKIN, SUBCU, MUSCLE, R great toe amp utation, wound LOWER EXTREMITY (WRVU 2.7) closure MODIFIER WOUND VAC R great toe amputation, wound closure documented as of this encounter Visit Diagnoses Not on filedocumented in this encounter Care Teams Machine Heel Seat Laster Relationship Specialty Start Date End Date Maribeth Pastrana MD PCP - General 04/03/10 10/17/10 [facility] [place] [address] documented as of this encounter
--- OUTSIDE RECORDS SUMMARY | 2021-11-30 08:30 | XMS_ITS | Encounter Summary ---
:1955 Author Organization [facility] [place] [address] Care Team Providers Name Role Phone Maribeth Pastrana MD Primary Care Provider Reason for Visit Reason Onset Date Comments Medication Refill 08/20/2010 Encounter Details Date Type Department Care Team Description 08/20/2010 Refill Internal Medicine at [facility] Maribeth Pastrana MD Pain (Primary Dx) [facility] Jenni rivpepito [facility] [place] [address] GENERAL INTERNAL [phone] MEDICINE [place], [place] [address] Social History Tobacco Use Types Packs/Day Years Used Date Never Assessed Sex Assigned at Date Recorded Not on file documented as of this encounter Plan of Treatment Upcoming Encounters Date Type Specialty Care Team Description 12/11/2021 Appointment Radiology 12/11/2021 Office Visit Orthopaedics Marion Tavera APRN [facility] ORTHOPAEDIC SURG [place], [place] [address] (Wo rk) 01/15/2022 Appointment Radiology Stiven Cervantes MD [facility] Pulmonary Medici nelly [place], [place] [address] (Wo rk) Scheduled Procedures Name Priority Associated Diagnoses Date/Time DEBRIDEMENT SKIN, SUBCU, MUSCLE, R great toe amp utation, wound LOWER EXTREMITY (WRVU 2.7) closure MODIFIER WOUND VAC R great toe amputation, wound closure documented as of this encounter Visit Diagnoses Diagnosis Pain - Primary Generalized pain documented in this encounter Care Teams Wood Borer Relationship Specialty Start Date End Date Maribeth Pastrana MD PCP - General 04/03/10 10/17/10 [facility] [place] [address] documented as of this encounter
--- OUTSIDE RECORDS SUMMARY | 2021-11-30 08:30 | XMS_ITS | Encounter Summary ---
:1955 Author Organization [facility] [place] [address] Care Team Providers Name Role Phone Vinicio Ferris MD Primary Care Provider Reason for Visit Reason Onset Date Comments Medication Refill 12/05/2010 Encounter Details Date Type Department Care Team Description 12/05/2010 Refill Psychiatry and Behavioral Everton Thornton MD [facility] Jenni hammer [place] [address] [place] [address] [phone] (Wo rk) Social History Tobacco Use Types [...] Tavera APRN [facility] ORTHOPAEDIC SURG [place], [place] [address] (Wo rk) 01/15/2022 Appointment Radiology Stiven Cervantes MD [facility] Pulmonary Medici nelly [place], [place] [address] (Wo rk) Scheduled Procedures Name Priority Associated Diagnoses Date/Time DEBRIDEMENT SKIN, SUBCU, MUSCLE, R great toe amp utation, wound LOWER EXTREMITY (WRVU 2.7) closure MODIFIER WOUND VAC R great toe amputation, wound closure documented as of this encounter Visit Diagnoses Not on filedocumented in this encounter Care Teams Consultant Education Relationship Specialty Start Date End Date Vinicio Ferris MD PCP - General 10/18/10 11/20/11 [facility] [place] [address] documented as of this encounter
--- OUTSIDE RECORDS SUMMARY | 2021-11-30 08:30 | XMS_ITS | Encounter Summary ---
:1955 Author Organization [facility] [place] [address] Care Team Providers Name Role Phone Vinicio Ferris MD Primary Care Provider Reason for Visit Reason Onset Date Comments Medication Refill 11/07/2010 Encounter Details Date Type Department Care Team Description 11/07/2010 Refill Internal Medicine at [facility] Vinicio Ferris MD Pain (Primary Dx) [facility] rive [facility] [place] [address] GENERAL INTERNAL [phone] MEDICINE [place], [place] [address] (Jorge arzate) Social History Tobacco [...] Marion Tavera APRN [facility] DR ORTHOPAEDIC SURG [place], [place] [address] (Wo rk) 01/15/2022 Appointment Radiology Stiven Cervantes MD [facility] Pulmonary Medici nelly [place], [place] [address] (Jorge rk) Scheduled Procedures Name Priority Associated Diagnoses Date/Time DEBRIDEMENT SKIN, SUBCU, MUSCLE, R great toe amp utation, wound LOWER EXTREMITY (WRVU 2.7) closure MODIFIER WOUND VAC R great toe amputation, wound closure documented as of this encounter Visit Diagnoses Diagnosis Pain - Primary Generalized pain documented in this encounter Care Teams Clerical Aide Teacher Relationship Specialty Start Date End Date Vinicio Ferris MD PCP - General 10/18/10 11/20/11 [facility] [place] [address] documented as of this encounter
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
--- OUTSIDE RECORDS SUMMARY | 2021-11-30 08:30 | XMS_ITS | Encounter Summary ---
:1955 Author Organization [facility] [place] [address] Care Team Providers Name Role Phone Maribeth Pastrana MD Primary Care Provider Encounter Details Date Type Department Care Team Description 02/14/2010 Orders Only Lab [facility] Caitlin Dowling APRN [facility] Jenni hammer [place] [address] [place] [address] [phone] Social History Tobacco Use Types Packs/Day Years Used Date Never Assessed Sex Assigned at Date Recorded Not on file documented as of this encounter Plan of Treatment Upcoming Encounters Date Type Specialty Care Team Description 12/11/2021 Appointment Radiology 12/11/2021 Office Visit Orthopaedics Marion Tavera APRN [facility] ORTHOPAEDIC SURG [place], [place] [address] (Wo rk) 01/15/2022 Appointment Radiology Stiven Cervantes MD [facility] Pulmonary Medici nelly [place], [place] [address] (Wo rk) Scheduled Procedures Name Priority Associated Diagnoses Date/Time DEBRIDEMENT SKIN, SUBCU, MUSCLE, R great toe amp utation, wound LOWER EXTREMITY (WRVU 2.7) closure MODIFIER WOUND VAC R great toe amputation, wound closure documented as of this encounter Procedures Procedure Name Priority Date/Time Associated Comments Diagnosis HCV QUANT Routine 02/14/2010 12:25 Results for this PM EDT procedure are i n the results section. DIFFERENTIAL, Routine 02/14/2010 12:25 Results fo r this AUTOMATED PM EDT procedure are i n the results section. CBC (WITH DIFF) Routine 02/14/2010 12:25 Results for this PM EDT procedure are i n the results section. TSH Routine 02/14/2010 12:25 Results for this PM EDT procedure are i n the results section. COMPREHENSIVE Routine 02/14/2010 12:25 Results fo r this METABOLIC PANEL PM EDT procedure ar e in (NON-FASTING) the results section. documented in this encounter Results REFLEX LAB-HCV QUANT ROCIO (02/14/2010 12:25 PM EDT) Component Value Ref Test Analysis Performed At [facility] gist Range Method Time Signature HCV Viral <43 IU/mL CERNER Load [facility] HCV Viral Result: < 43 (but detected) CE RNER Load [facility] Indication for Study: Hepatitis C Infection [...] assay is being pe rformed in the [facility] Molecular Pathology Laboratory. Endy Bliss, Ph.D. Director, Molecular Pathology Comment: [VERIFIED DATE]02.19.10 Verified By:Leila Judd (Electronic Signature) Specimen Anatomical Collection Method Collection Time Receive d Time (Source) Location / / Volume Laterality Blood specimen 02/14/2010 12:25 0 5:27 (specimen) PM EDT PM EDT Caitlin Dowling APRN HEMATOLOGY ORDERABLES Performing Organization Address City/State/[place] [address] CERNER MILLENNIUM TSH (02/14/2010 12:25 PM EDT) athologist Signature TSH 4.04 0.27 - 4.20 CERNER mcIU/mL [facility] Comment: Cord Blood Reference Range: ??0. 35 23.00 uIU/mL Specimen Anatomical Collection Method Collection Time Receive d Time (Source) Location / / Volume Laterality Blood specimen 02/14/2010 12:25 0 (specimen) PM EDT 12:38 PM EDT Caitlin Dowling LISA CHEMISTRY ORDERABLES Performing Organization Address City/State/ZIP Code Phon e Number [place] [phone] CERNER MILLENNIUM (ABNORMAL) COMPREHENSIVE METABOLIC PANEL (NON-FASTING) (02/14/2010 12:25 PM EDT) P athologist Signature Glucose Lvl 127 <=199 mg/dL CERNER MILLENNIUM Comment: Diabetes: >=200 mg/dL plus symp toms BUN 9 (L) 10 - 20 mg/dL CERNER MILLENNIU M Creatinine 0.82 0.80 - 1.50 mg/dL CERNER MILL ENNIUM [...] 10.5 mg/dL CERNER GERBER NIUM Total Protein 7.1 6.4 - 8.3 gm/dL CERNER MIL LENNIUM Albumin 4.1 3.2 - 5.2 gm/dL CERNER MILLENN IUM AST 67 (H) 0 - 39 unit/L CERNER MILLENNIU M ALT 66 (H) 0 - 55 unit/L CERNER MILLENNIU M Alk Phos 89 40 - 120 unit/L CERNER MILLENN IUM Total Bilirubin 0.4 0.2 - 1.3 mg/dL [facility] M ILLENNIUM Bili, Direct 0.2 0.0 - 0.3 mg/dL CERNER MILL ENNIUM Estimated GFR >60 >=60 CERNER LEAKarina Alvin Comment: The National Kidney Disease Education Pr [...] Location / / Volume Laterality Blood specimen 02/14/2010 12:25 0 (specimen) PM EDT 12:38 PM EDT Caitlin Dowling APRN CHEMISTRY ORDERABLES Performing Organization Address City/State/ZIP Code Phon e Number [place] [phone] CERNER MILLENNIUM (ABNORMAL) REFLEX LAB-A-DIFF (02/14/2010 12:25 PM EDT) [facility] Method Time Signature Neutrophils % 57.3 34.0 - CERNER 71.0 % MILLENNIUM Neutr Abs (ANC) 2.46 1.50 - CERNER 6.30 MILLENNIUM x10(3)/mc L Lymphocytes % 26.7 19.0 - CERNER 53.0 % MILLENNIUM Lymphocytes Abs 1.2 1.0 - 3.6 CERNER x10(3)/mc MILLENNIUM L Monocytes % 13.5 (H) 4.0 - CERNER 13.0 % MILLENNIUM Monocyte Abs 0.6 0.2 - 1.0 CERNER x10(3)/mc MILLENNIUM L Eosinophils % 2.1 0.0 - 7.0 CERNER % MILLENNIUM Eosinophils Abs 0.1 0.0 - 0.5 CERNER x10(3)/mc MILLENNIUM L [...] Location / / Volume Laterality Blood specimen 02/14/2010 12:25 0 (specimen) PM EDT 12:38 PM EDT Caitlin Dowling APRN HEMATOLOGY ORDERABLES Performing Organization Address City/State/ZIP Code Phon e Number [place] [phone] CERNER MILLENNIUM (ABNORMAL) CBC (02/14/2010 12:25 PM EDT) P athologist Signature WBC 4.3 4.0 - 10.0 CERNER x10(3)/mcL MILLENNIUM RBC 3.73 (L) 4.63 - CERNER 6.08 MILLENNIUM x10(6)/mcL Hemoglobin 12.0 (L) 13.7 - CERNER 17.5 gm/dL MILLENNIUM Hematocrit 36.8 (L) 40.0 - CERNER 51.0 % MILLENNIUM MCV 98.7 (H) 79.0 - CERNER 92.0 fL MILLENNIUM MCH 32.2 25.6 - CERNER 32.2 pg MILLENNIUM MCHC 32.6 32.0 - CERNER 36.5 gm/dL ENNIUM Platelets 156 145 - 370 CERNER x10(3)/mcL ENNIUM RDWSD 48.2 (H) 35.0 - CERNER 46.0 fL ENNIUM RDWCV 13.4 10.9 - CERNER 14.4 % ENNIUM MPV 10.4 9.0 - 12.0 CERNER fL MILLENNIUM Specimen Anatomical Collection Method Collection Time Receive d Time (Source) Location / / Volume Laterality Blood specimen 02/14/2010 12:25 0 (specimen) PM EDT 12:38 PM EDT Caitlin Dowling APRN HEMATOLOGY ORDERABLES Performing Organization Address City/State/[place] [address] CERNER TAMARAENNIUM documented in this encounter Visit Diagnoses Not on filedocumented in this encounter Care Teams Records Section Supervisor Relationship Specialty Start Date End Date Maribeth Pastrana MD PCP - General 04/03/10 10/17/10 [facility] [address] GARCIA [place] [address] documented as of this encounter
--- OUTSIDE RECORDS SUMMARY | 2021-11-30 08:30 | XMS_ITS | Encounter Summary ---
:1955 Author Organization [facility] [address] Care Team Providers Name Role Phone Vinicio Ferris MD Primary Care Provider Reason for Visit Reason Onset Date Comments Medication Refill 12/10/2010 Encounter Details Date Type Department Care Team Description 12/10/2010 Refill Internal Medicine at [place] Vinicio Ferris MD Pain (Primary Dx) [facility] rive [facility] [place] [phone] GENERAL INTERNAL [phone] MEDICINE [place], [place] [address] (Jorge arzate) Social History Tobacco [...] Tavera APRN [facility] ER DR ORTHOPAEDIC SURG [place], [place] [address] (Wo rk) 01/15/2022 Appointment Radiology Stiven Cervantes MD [facility] Pulmonary Medici nelly [place], [place] [address] (Jorge rk) Scheduled Procedures Name Priority Associated Diagnoses Date/Time DEBRIDEMENT SKIN, SUBCU, MUSCLE, R great toe amp utation, wound LOWER EXTREMITY (WRVU 2.7) closure MODIFIER WOUND VAC R great toe amputation, wound closure documented as of this encounter Visit Diagnoses Diagnosis Pain - Primary Generalized pain documented in this encounter Care Teams Pool Player Relationship Specialty Start Date End Date Vinicio Ferris MD PCP - General 10/18/10 11/20/11 [facility] [place] [address] documented as of this encounter
--- OUTSIDE RECORDS SUMMARY | 2021-11-30 08:30 | XMS_ITS | Encounter Summary ---
:1955 Author Organization [facility] [place] [address] Care Team Providers Name Role Phone Vinicio Ferris MD Primary Care Provider Reason for Visit Reason Onset Date Comments Results 01/11/2011 Encounter Details Date Type Department Care Team Description 01/11/2011 Telephone Gastroenterology at [facility] Caitlin Dowling APRN Results [place] [address] GASTROENTEROLOGY [phone] DEPT. [place], [place] [address] Social History Tobacco Use Types Packs/Day Years Used Date Former Smoker Cigarettes 0.5 42 Smokeless Tobacco: Former User Alcohol Use Standard Drinks/Week Comments Not Asked 0 (1 standard drink = 0.6 oz pure alcoho l) Sex Assigned at Date Recorded Not on file documented as of this encounter Miscellaneous Notes Telephone Encounter - Caitlin Dowling APRN - 01/11/2011 1:27 PM EDT Spoke with patient about his positive viral load results He will repeat a viral load with his upcoming lab tests and will schedule a follow up visit to discuss his options, he is just starting to feel back to his baseline from the treatment. documented in this encounter Plan of Treatment Upcoming Encounters Date Type Specialty Care Team Description 12/11/2021 Appointment Radiology 12/11/2021 Office Visit Orthopaedics Marion Tavera APRN [facility] DR ORTHOPAEDIC SURG [place], [place] [address] (Wo rk) 01/15/2022 Appointment Radiology Stiven Cervantes MD [facility] Pulmonary Medici [place], [place] [address] (Wo rk) Scheduled Procedures Name Priority Associated Diagnoses Date/Time DEBRIDEMENT SKIN, SUBCU, MUSCLE, R great toe amp utation, wound LOWER EXTREMITY (WRVU 2.7) closure MODIFIER WOUND VAC R great toe amputation, wound closure documented as of this encounter Visit Diagnoses Diagnosis Hepatitis C, chronic - Primary Chronic hepatitis C without mention of h epatic coma documented in this encounter Care Teams Pulp Mill Operator Relationship Specialty Start Date End Date Vinicio Ferris MD PCP - General 10/18/10 11/20/11 [facility] [place] [address] documented as of this encounter
--- OUTSIDE RECORDS SUMMARY | 2021-11-30 08:30 | XMS_ITS | Encounter Summary ---
:1955 Author Organization [facility] Address [facility] [place] [address] Care Team Providers Name Role Phone Maribeth Pastrana MD Primary Care Provider Encounter Details Date Type Department Care Team Description 08/15/2010 Orders Only Internal Medicine at [place] Ferris MD Preventative health care; [facility] Hepatitis C virus infection [facility] DR [place] GENERAL INTERNAL [place], [place] MEDICINE [id number] [place] [address] [phone] (Wo rk) Social History Tobacco Use Types Packs/Day Years Used Date Never Assessed Sex Assigned at Date Recorded Not on file documented as of this encounter Plan of Treatment Upcoming Encounters Date Type Specialty Care Team Description 12/11/2021 Appointment Radiology 12/11/2021 Office Visit Orthopaedics Marion Tavera APRN [facility] ORTHOPAEDIC SURG [place], [place] [address] (Wo rk) 01/15/2022 Appointment Radiology Stiven Cervantes MD [facility] Pulmonary Medici [place], [place] [address] (Wo rk) Scheduled Procedures Name Priority Associated Diagnoses Date/Time DEBRIDEMENT SKIN, SUBCU, MUSCLE, R great toe amp utation, wound LOWER EXTREMITY (WRVU 2.7) closure MODIFIER WOUND VAC R great toe amputation, wound closure documented as of this encounter Visit Diagnoses Diagnosis Preventative health care Routine general medical examination at a health care facility Hepatitis C virus infection Unspecified viral hepatitis C without he patic coma documented in this encounter Care Teams Change Coordinator Relationship Specialty Start Date End Date Maribeth Pastrana MD PCP - General 04/03/10 10/17/10 [facility] [place] [address] documented as of this encounter
--- OUTSIDE RECORDS SUMMARY | 2021-11-30 08:30 | XMS_ITS | Encounter Summary ---
:1955 Author Organization [place] [place] [address] Care Team Providers Name Role Phone Vinicio Ferris MD Primary Care Provider Reason for Visit Reason Onset Date Comments Medication Refill 02/04/2011 Encounter Details Date Type Department Care Team Description 02/04/2011 Refill Internal Medicine at [facility] Vinicio Ferris MD Pain (Primary Dx) [facility] rive [facility] [place] [address] GENERAL INTERNAL [phone] MEDICINE [place], [place] [address] (Wo rk) Social History Tobacco [...] Marion Tavera APRN [facility] ER ORTHOPAEDIC SURG [place], [place] [address] (Wo rk) 01/15/2022 Appointment Radiology Stiven Cervantes MD [facility] er Pulmonary Medici nelly [place], [place] [address] (Wo rk) Scheduled Procedures Name Priority Associated Diagnoses Date/Time DEBRIDEMENT SKIN, SUBCU, MUSCLE, R great toe amp utation, wound LOWER EXTREMITY (WRVU 2.7) closure MODIFIER WOUND VAC R great toe amputation, wound closure documented as of this encounter Visit Diagnoses Diagnosis Pain - Primary Generalized pain documented in this encounter Care Teams Plant Nursery Worker Relationship Specialty Start Date End Date Vinicio Ferris MD PCP - General 10/18/10 11/20/11 [facility] GENERAL INTERNAL [place] [address] documented as of this encounter
--- OUTSIDE RECORDS SUMMARY | 2021-11-30 08:30 | XMS_ITS | Encounter Summary ---
:1955 Author Organization [facility] [place] [address] Care Team Providers Name Role Phone Vinicio Ferris MD Primary Care Provider Reason for Visit Reason Onset Date Comments Medication Refill 01/22/2011 Encounter Details Date Type Department Care Team Description 01/22/2011 Refill Internal Medicine at [facility] Vinicio Ferris MD [facility] [place] [address] GENERAL INTERNAL MEDICINE [phone] [place], [place] [address] (Wo rk) Social History Tobacco [...] [facility] ER ORTHOPAEDIC SURG [place], [place] [address] (Wo rk) 01/15/2022 Appointment Radiology Stiven Cervantes MD [facility] Pulmonary Medici nelly [place], [place] [address] (Wo rk) Scheduled Procedures Name Priority Associated Diagnoses Date/Time DEBRIDEMENT SKIN, SUBCU, MUSCLE, R great toe amp utation, wound LOWER EXTREMITY (WRVU 2.7) closure MODIFIER WOUND VAC R great toe amputation, wound closure documented as of this encounter Visit Diagnoses Not on filedocumented in this encounter Care Teams Clay Miller Relationship Specialty Start Date End Date Vinicio Ferris MD PCP - General 10/18/10 11/20/11 [facility] GENERAL INTERNAL [place] [address] documented as of this encounter
--- OUTSIDE RECORDS SUMMARY | 2021-11-30 08:30 | XMS_ITS | Encounter Summary ---
:1955 Author Organization [facility] [place] [address] Care Team Providers Name Role Phone Vinicio Ferris MD Primary Care Provider Reason for Visit Reason Onset Date Comments Medication Refill 09/25/2010 Encounter Details Date Type Department Care Team Description 09/25/2010 Refill Internal Medicine at [facility] Vinicio Ferris MD Pain (Primary Dx) [facility] Jenni rivpepito [facility] [place] [address] GENERAL INTERNAL [phone] MEDICINE [place], [place] [address] (Wo rk) Social History Tobacco Use Types Packs/Day Years Used Date Never Assessed Sex Assigned at Date Recorded Not on file documented as of this encounter Plan of Treatment Upcoming Encounters Date Type Specialty Care Team Description 12/11/2021 Appointment Radiology 12/11/2021 Office Visit Orthopaedics Marion Tavera APRN [facility] DR ORTHOPAEDIC SURG [place], [place] [address] (Wo rk) 01/15/2022 Appointment Radiology Stiven Cervantes MD [facility] Pulmonary Medici nelly [place], [place] [address] (Wo rk) Scheduled Procedures Name Priority Associated Diagnoses Date/Time DEBRIDEMENT SKIN, SUBCU, MUSCLE, R great toe amp utation, wound LOWER EXTREMITY (WRVU 2.7) closure MODIFIER WOUND VAC R great toe amputation, wound closure documented as of this encounter Visit Diagnoses Diagnosis Pain - Primary Generalized pain documented in this encounter Care Teams Bar Manager Relationship Specialty Start Date End Date Vinicio Ferris MD PCP - General 10/18/10 11/20/11 [facility] [place] [address] documented as of this encounter
--- OUTSIDE RECORDS SUMMARY | 2021-11-30 08:30 | XMS_ITS | Encounter Summary ---
:1955 Author Organization [facility] [place] [address] Care Team Providers Name Role Phone Vinicio Ferris MD Primary Care Provider Reason for Visit Reason Comments Follow-up Encounter Details Date Type Department Care Team Description 01/22/2011 Follow-Up Internal Medicine at Lauren Ferris MD [facility] [place] [address] Elevated serum creatinine; [facility] [place] Jazmin Monsivais MD [facility] [place] [address] Pain; [place] [address] Social History Tobacco Use Types Packs/Day Years Used Date Current Some Day Smoker Cigarettes 0.5 42 Smokeless Tobacco: Former User Alcohol Use Standard Drinks/Week Comments Not Asked 0 (1 standard drink = 0.6 oz pure alcoho l) Sex Assigned at Date Recorded Not on file documented as of this encounter Last Filed Vital Signs Vital Sign Reading Time Taken Comments Blood Pressure 133/85 01/22/2011 9:53 AM EDT Pulse 63 01/22/2011 9:53 AM EDT Temperature - - Respiratory Rate 18 01/22/2011 9:53 AM EDT Oxygen Saturation - - Inhaled Oxygen Concentration - - Weight 91.2 kg (201 lb) 01/22/2011 9:53 AM EDT Height 174.6 cm (5' 8.75) 01/22/2011 9:53 AM EDT Body Mass Index 29.9 01/22/2011 9:53 AM EDT documented in this encounter Patient Instructions Patient InstructionsVinicio Ferris MD - 01/22/2011 10:41 AM EDT -Please discontinue dyazide and start taking amlodipine 5mg daily for your blood pressure documented in this encounter Progress Notes Jazmin Monsivais MD - 01/22/2011 10:49 AM EDT The case was discussed at the time of the visit or immediately after the visit. The assessment and plan were formulated in discussion with me and I agree with them as documented. I have reviewed the history, physical exam, assessment and plan with the resident. Major issues discussed today: 55 yo m here for f/u. -Hep C, failed treatment -Persistent foot pain - ?combination of neuropathy, plantar fasciitis -HTN -AGNIESZKA Plan: -GI f/u -Stretching exercises for plantar fasciitis -Stop Dyazide -Start amlodipine for BP -Labs for AGNIESZKA -F/u in 2 months Vinicio Ferris MD - 01/22/2011 10:14 AM EDT GIM Follow Up Note CC: f/u medical problems HPI: Mr. Ramos is a 55 year old male who presents today for follow up. He feels fairly down today about the recent news that his viral load is elevated. He is seeing GI next month for further evaluation. He feels specifically down because he did not tolerate the treatment well last time and was hopingfor longer time in remission. He is willing to explore options regarding treatment at his upcoming appointment. Other complaints include persistent pain in the soles of his feet. He has been complaining about this over the last few visits. We referred him to podiatry, who did not identify a clear etiology. His symptoms are exacerbated by walking and alleviated by rest. He describes the feeling as dull, achy pain over the soles of his feet near his feel. He reports mild numbness at the tips of his toes. No weakness. He is using wide soled shoes, with insoles. PMHx/Problem List: #Hepatitis C -Genotype:2b -RUQ U/S 08- no evidence of cirrhosis -Liver biopsy-07/18 ---Pathologic Diagnosis--- Liver, needle biopsy specimen showing changes consistent with chronic hepatitis C, stage 3-4/4, grade 2/4 (mild activity); concomittant severe alcoholic/nonalcoholic steatohepatitis/steatofibrosis. -Started peg interferon and ribavarin 08/19 -->stopped 07/20. 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 MRI and surgical evaluation deferred per patient request #HTN -Atenolol 50 bid -On Dyazide 37.5/25 -Last BMP 10/20 with increasing creatinine (see below) #Polysubstance abuse -Hx of Alcohol abuse. Abstinent since 01/18 -Nicotine 3 cigs/day. Smoker x 30yrs (2PPD) -H/o narcotic abuse #MDD- On Wellbutrin. Follows closely with psychiatry #ADHD-On Ritalin #GERD-Takes prilosec. 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 Authorizing Provider methadone (DOLOPHINE) 10 mg tablet Take 4 tablets by mouth 4 times daily for 14 days. Two week script next due 01/[address] Ferris(Yodit) 01/07/11 01/21/11 Anusha Carter MD buPROPion (WELLBUTRIN XL) 300 mg 24 hr tablet Take 1 tablet by mouth daily. 01/01/11 Shivani Thornton MD diaZEPam (VALIUM) 5 mg tablet Take 1 tablet by mouth 3 times daily as needed for Anxiety. 01/01/11 Shivani Thornton MD methylphenidate (RITALIN) 20 mg tablet Take 1 tablet by mouth 4 times daily. For ADHD. 01/01/11 Da-Delphine Thornton MD ACETAMINOPHEN/DP-HYDRAM HCL (TYLENOL PM ORAL) Take by mouth as needed. 08/16/10 Historical Provider, atenolol (TENORMIN) 50 mg tablet 50 MG = 1 Tablet(s) PO Twice daily 07/31/10 triamterene-hydrochlorothiazide (DYAZIDE) 37.5-25 mg per capsule 1 Capsule(s) PO Once daily 07/31/10 triamcinolone (KENALOG) 0.025 % cream 1 Appl(s), Top, Twice daily 07/31/10 Allergies: No Known Allergies Family History: Noncontributory Social History: -Tobacco: 3 cigs/day.. 60 pack yr smoking history. -Alcohol: Former etoh abuse. Abstinent since 01/18 -Other Drug Use: IVDA in the 70's -Living conditions: . 2 children. Disabled. 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 -Occupation: On Disability. Prevention: -CAD prevention: -Fasting lipids normal 10/20 -Immunizations: -Td:Unknown -Hepatitis: 2009 -Colorectal Cancer Screenin. WNL Due q10y -PSA: 0.6 (10/20)) -Smoking Cessation: Has cut down significantly, but [...] hematuria (-) discharge (+) occasional dribbling MSK: PER HPI Endo: (-)heat/cold intolerance (-) polyuria/polydipsia Skin: (-) rashes (-) skin/hair changes Neurological: (+) numbness/tingling of toes bilaterally (-) seizures Hematological: (-) bleeding (-) easy bruising Physical exam: Filed Vitals: 01/22/11 0953 BP: 133/85 Pulse: 63 Resp: 18 General: AAO x 3, NAD Foot exam: Normal pulses. No obvious deformity. Strength intact bilaterally. Normal proprioception and vibration sense. Sensation normal to light touch. Some tenderness elicited with palpated of soles. Assessment/Plan: Mr. Ramos is a 55 year old man here for follow up today. Problem based assessment and plan detailed below. #Hepatitis C -VL now elevated. Seeing GI on 02/14 for further management. #Foot pain -Unclear etiology, work up as above -Possible plantar fasciitis. Recommended stretching exercises for now -Possible peripheral neuropathy component as well, considering empiric treatment vs NCV studies at next appt -TSH, B12 normal within past yr #Elevated creatinine -Unclear etiology and whether acute vs CKD. Will repeat labs and UA, urine protein/creatinine, SPEP/UPEP -Differential includes AGNIESZKA due to volume depletion at time of lab draw, hypertensive nephropathy, Hep C related etc. -Await above labs before ordering renal U/S -DC dyazide #Chronic pain -Con't management #Hypertension -BP appears well controlled in office. Will DC dyazide due to renal issues as above and switch to amlodipine #Psychiatric history Follows very closely with psychiatry regarding depression and ADHD. Will con't Wellbutryin and ritalin as recommended #Smoking Cessation -Precontemplative #HCM: Up to date RTC in 2 months for f/u documented in this encounter Plan of Treatment Upcoming Encounters Date Type Specialty Care Team Description 12/11/2021 Appointment Radiology 12/11/2021 Office Visit Orthopaedics Marion Tavera APRN [facility] DR ORTHOPAEDIC SURG [place], [place] [address] (Wo rk) 01/15/2022 Appointment Radiology Stiven Cervantes MD [facility] Pulmonary Medici [place], [place] [address] (Wo rk) Scheduled Procedures Name Priority Associated Diagnoses Date/Time DEBRIDEMENT SKIN, SUBCU, MUSCLE, R great toe amp utation, wound LOWER EXTREMITY (WRVU 2.7) closure MODIFIER WOUND VAC R great toe amputation, wound closure documented as of this encounter Results (ABNORMAL) Protein Electrophoresis, serum (02/04/2011 12:39 PM EDT) Patholo gist Method Time Signature Total Prot 7.1 6.1 [...] Organization Address City/State/ZIP Code Phon e Number [place] [phone] CERNER MILLENNIUM Basic Metabolic [...] Organization Address City/State/[place] [address] AMINA PEREIRAIUM documented in this encounter Visit Diagnoses Diagnosis Elevated serum creatinine Other nonspecific findings on examinatio n of blood Pain Generalized pain Hypertension Unspecified essential hypertension documented in this encounter Care Teams Tonguer Relationship Specialty Start Date End Date Vinicio Ferris MD PCP - General 10/18/10 11/20/11 [facility] [address] [address] documented as of this encounter
--- OUTSIDE RECORDS SUMMARY | 2021-11-30 08:30 | XMS_ITS | Encounter Summary ---
:1955 Author Organization [facility] [place] [address] Care Team Providers Name Role Phone Maribeth Pastrana MD Primary Care Provider Reason for Visit Reason Onset Date Comments Medication Refill 09/06/2010 Encounter Details Date Type Department Care Team Description 09/06/2010 Refill Psychiatry and Behavioral [facility] MD [facility] Jenni hammer [place] [address] [place] [address] [phone] (Wo rk) Social History Tobacco Use Types Packs/Day Years Used Date Never Assessed Sex Assigned at Date Recorded Not on file documented as of this encounter Plan of Treatment Upcoming Encounters Date Type Specialty Care Team Description 12/11/2021 Appointment Radiology 12/11/2021 Office Visit Orthopaedics Marion Tavera APRN [facility] ORTHOPAEDIC SURG [place], [place] [address] (Wo rk) 01/15/2022 Appointment Radiology Stiven Cervantes MD [facility] Pulmonary Medici [place], [place] [address] (Wo rk) Scheduled Procedures Name Priority Associated Diagnoses Date/Time DEBRIDEMENT SKIN, SUBCU, MUSCLE, R great toe amp utation, wound LOWER EXTREMITY (WRVU 2.7) closure MODIFIER WOUND VAC R great toe amputation, wound closure documented as of this encounter Visit Diagnoses Not on filedocumented in this encounter Care Teams Commercial Attache Relationship Specialty Start Date End Date Maribeth Pastrana MD PCP - General 04/03/10 10/17/10 [facility] [place] [address] documented as of this encounter
[2021-11-30] MEDS: Normal Saline Flush 10 ML SYR IVP (12:58)
[2021-11-30] MEDS: ERTAPENEM 1 GM in Normal Saline 50 ML IVPB (14:10)
[2021-12-01] MEDS: ERTAPENEM 1 GM in Normal Saline 50 ML IVPB (13:15)
[2021-12-01] MEDS: Normal Saline Flush 10 ML SYR IVP (13:19)
[2021-12-02] MEDS: ERTAPENEM 1 GM in Normal Saline 50 ML IVPB (13:11)
[2021-12-03] MEDS: Normal Saline Flush 10 ML SYR IVP (13:17)
[2021-12-03] MEDS: ERTAPENEM 1 GM in Normal Saline 50 ML IVPB (13:17)
[2021-12-03 13:35] LABS: Absolute Basophil Count 0.15 10^3/uL (0.0-0.2); Absolute Lymphocyte Count 2.25 10^3/uL (1.2-3.4); Absolute Monocyte Count 1.15 10^3/uL (0.1-0.8); Basophils % 1.1; HCT 39.9 % (40.0-50.0); HGB 13.1 g/dL (13.5-17.5); Immature Grans % 0.7; Lymphocytes % 16.1; MCH 32.1 pg (27.0-33.0); MCHC 32.8 % (32.0-36.0); MCV 98 fL (80-95); Monocytes % 8.2; Neutrophils % 68.9; Platelet Count 504 10^3/uL (130-400); RBC 4.08 10^6/uL (4.36-5.78); RDW 14.1 % (11.8-14.1); RDW-SD 51.1 fL; WBC 13.97 10^3/uL (4.4-10.8)
[2021-12-03 13:39] LABS: Absolute Neutrophil Count 9.63 10^3/uL (1.2-6.7)
[2021-12-03 13:50] LABS: ALT 32 U/L (16-63); AST 25 U/L (15-37); Albumin 3.2 g/dL (3.4-5.0); Alkaline Phosphatase 84 U/L (46-116); Anion Gap 6.6 mmol/L (3-11); BUN 42 mg/dL (7-18); Bilirubin, Total 0.2 mg/dL (0.2-1.0); C-Reactive Protein 2.07 mg/dL (0.0-0.3); CO2 24.4 mmol/L (21.0-32.0); CREATININE 2.7 mg/dL (0.70-1.30); Calcium 8.3 mg/dL (8.5-10.1); Chloride 105 mmol/L (98-107); Creatine Kinase 94 U/L (39-308); Estimated GFR 23.62 (mL/min/1.73m2); Glucose 142 mg/dL (74-106); Potassium 4.8 mmol/L (3.5-5.1); Sodium 136 mmol/L (136-145); Total Protein 7.7 g/dL (6.4-8.2)
[2021-12-04] MEDS: ERTAPENEM 1 GM in Normal Saline 50 ML IVPB (14:05)
[2021-12-04] MEDS: Normal Saline Flush 10 ML SYR IVP (15:09)
[2021-12-05] MEDS: Lactated Ringers 1,000 ML 2000 ML IV (13:48)
[2021-12-05] MEDS: Normal Saline Flush 10 ML SYR IVP (14:37)
[2021-12-06] MEDS: Normal Saline Flush 10 ML SYR IVP (13:12)
[2021-12-07 12:46] LABS: Anion Gap 7.7 mmol/L (3-11); BUN 25 mg/dL (7-18); CO2 32.3 mmol/L (21.0-32.0); CREATININE 1.8 mg/dL (0.70-1.30); Calcium 8.9 mg/dL (8.5-10.1); Chloride 98 mmol/L (98-107); Estimated GFR 37.71 (mL/min/1.73m2); Glucose 98 mg/dL (74-106); Potassium 4.3 mmol/L (3.5-5.1); Sodium 138 mmol/L (136-145)
[2021-12-07 12:55] LABS: C-Reactive Protein 2.76 mg/dL (0.0-0.3)
[2021-12-07] MEDS: Normal Saline Flush 10 ML SYR IVP (13:00)
[2021-12-08] MEDS: Normal Saline Flush 10 ML SYR IVP (13:47)
[2021-12-08] MEDS: ERTAPENEM 1 GM in Normal Saline 50 ML IVPB (13:47)
[2021-12-09] MEDS: ERTAPENEM 1 GM in Normal Saline 50 ML IVPB (13:18)
[2021-12-09] MEDS: Normal Saline Flush 10 ML SYR IVP (13:57)
== END 2021-12-09 23:59 | disposition home or self-care (01) ==
LOC: INF 00:04
PROVIDERS: Internal Medicine; Student in an Organized Health Care Education/Training Program; PCP Family Medicine; Visit Provider Nurse Practitioner Acute Care
DX: B99.8 Other infectious disease (principal); M86.9 Osteomyelitis, unspecified; Z79.2 Long term (current) use of antibiotics; N17.9 Acute kidney failure, unspecified
CPT/HCPCS: 36592; 80048; 80053; 82550; 96360; 96365; 85025; 86140; J1335

== ENCOUNTER 2022-01-06 13:00 | Outpatient (RCR) | payer MEDICARE, SELFPAY ==
[2021-12-10] MEDS: Normal Saline Flush 10 ML SYR IVP (13:07)
[2021-12-10 13:10] LABS: Abs Immature Grans 0.04 10^3/uL (0.0-0.06); Absolute Basophil Count 0.08 10^3/uL (0.0-0.2); Absolute Eosinophil Count 0.61 10^3/uL (0.0-0.7); Absolute Monocyte Count 0.97 10^3/uL (0.1-0.8); Basophils % 0.7; Eosinophils % 5.1; HCT 38.1 % (40.0-50.0); HGB 12.8 g/dL (13.5-17.5); Immature Grans % 0.3; Lymphocytes % 17.4; MCH 31.8 pg (27.0-33.0); MCHC 33.6 % (32.0-36.0); MCV 95 fL (80-95); MPV 9.9 fL (8.0-11.0); Monocytes % 8.1; Neutrophils % 68.4; Platelet Count 310 10^3/uL (130-400); RBC 4.03 10^6/uL (4.36-5.78); RDW 13.3 % (11.8-14.1); WBC 11.92 10^3/uL (4.4-10.8)
[2021-12-10 13:11] LABS: Absolute Lymphocyte Count 2.07 10^3/uL (1.2-3.4); Absolute Neutrophil Count 8.15 10^3/uL (1.2-6.7)
[2021-12-10 13:34] LABS: C-Reactive Protein 2.59 mg/dL (0.0-0.3); Creatine Kinase 46 U/L (39-308)
[2021-12-10] MEDS: ERTAPENEM 1 GM in Normal Saline 50 ML IVPB (13:57)
[2021-12-10 14:53] LABS: ALT 26 U/L (16-63); AST 16 U/L (15-37); Albumin 3.1 g/dL (3.4-5.0); Alkaline Phosphatase 80 U/L (46-116); Anion Gap 3.9 mmol/L (3-11); BUN 21 mg/dL (7-18); Bilirubin, Total 0.1 mg/dL (0.2-1.0); CO2 33.1 mmol/L (21.0-32.0); Chloride 98 mmol/L (98-107); Estimated GFR 33.39 (mL/min/1.73m2); Glucose 115 mg/dL (74-106); Potassium 3.7 mmol/L (3.5-5.1); Sodium 135 mmol/L (136-145); Total Protein 7.6 g/dL (6.4-8.2)
[2021-12-11] MEDS: Normal Saline Flush 10 ML SYR IVP (10:07)
[2021-12-11] MEDS: ERTAPENEM 1 GM in Normal Saline 50 ML IVPB (11:05)
[2021-12-12] MEDS: Normal Saline Flush 10 ML SYR IVP (12:55)
[2021-12-12] MEDS: ERTAPENEM 1 GM in Normal Saline 50 ML IVPB (13:22)
[2021-12-13] MEDS: Normal Saline Flush 10 ML SYR IVP (13:30)
[2021-12-13] MEDS: ERTAPENEM 1 GM in Normal Saline 50 ML IVPB (14:00)
[2021-12-14] MEDS: Normal Saline Flush 10 ML SYR IVP (12:55)
[2021-12-14] MEDS: ERTAPENEM 1 GM in Normal Saline 50 ML IVPB (13:49)
[2021-12-15] MEDS: Normal Saline Flush 10 ML SYR IVP (13:28)
[2021-12-15] MEDS: ERTAPENEM 1 GM in Normal Saline 50 ML IVPB (14:02)
[2021-12-16] MEDS: Normal Saline Flush 10 ML SYR IVP ×2 (13:15→13:47)
[2021-12-16] MEDS: ERTAPENEM 1 GM in Normal Saline 50 ML IVPB (13:46)
[2021-12-17] MEDS: ERTAPENEM 1 GM in Normal Saline 50 ML IVPB (13:28)
[2021-12-17] MEDS: Normal Saline Flush 10 ML SYR IVP (13:28)
[2021-12-17 13:46] LABS: HCT 37.1 % (40.0-50.0); HGB 12.4 g/dL (13.5-17.5); MCH 32.1 pg (27.0-33.0); MCHC 33.4 % (32.0-36.0); MCV 96 fL (80-95); MPV 10.3 fL (8.0-11.0); Platelet Count 236 10^3/uL (130-400); RBC 3.86 10^6/uL (4.36-5.78); RDW 13.9 % (11.8-14.1); RDW-SD 48.1 fL; WBC 15.18 10^3/uL (4.4-10.8)
[2021-12-17 14:04] LABS: C-Reactive Protein 11.15 mg/dL (0.0-0.3); Creatine Kinase 307 U/L (39-308)
[2021-12-17 14:08] LABS: Absolute Basophil Count 0.15 10^3/uL (0.0-0.2); Absolute Eosinophil Count 1.67 10^3/uL (0.0-0.7); Absolute Lymphocyte Count 1.52 10^3/uL (1.2-3.4); Absolute Monocyte Count 1.06 10^3/uL (0.1-0.8); Absolute Neutrophil Count 10.78 10^3/uL (1.2-6.7); Atypical Lymphocytes % 1; Diff Comment Manual Differential; RBC Morphology Normal
[2021-12-18 11:15] LABS: ALT 28 U/L (16-63); AST 22 U/L (15-37); Albumin 3.1 g/dL (3.4-5.0); Alkaline Phosphatase 95 U/L (46-116); Anion Gap 8.8 mmol/L (3-11); BUN 24 mg/dL (7-18); Bilirubin, Total 0.2 mg/dL (0.2-1.0); CO2 31.2 mmol/L (21.0-32.0); CREATININE 1.5 mg/dL (0.70-1.30); Calcium 9.1 mg/dL (8.5-10.1); Chloride 101 mmol/L (98-107); Estimated GFR 46.54 (mL/min/1.73m2); Glucose 128 mg/dL (74-106); Sodium 141 mmol/L (136-145); Total Protein 7.6 g/dL (6.4-8.2)
[2021-12-18 13:02] VITALS: BP 124/76; PULSE 67; RESP 18; TEMP 36.4; O2SAT 91
[2021-12-18] MEDS: Normal Saline Flush 10 ML SYR IVP (13:33)
[2021-12-18] MEDS: ERTAPENEM 1 GM in Normal Saline 50 ML IVPB (14:02)
[2021-12-20] MEDS: ERTAPENEM 1 GM in Normal Saline 50 ML IVPB (14:00)
[2021-12-20] MEDS: Normal Saline Flush 10 ML SYR IVP (14:03)
[2021-12-21] MEDS: Normal Saline Flush 10 ML SYR IVP (12:27)
[2021-12-21] MEDS: ERTAPENEM 1 GM in Normal Saline 50 ML IVPB (12:33)
[2021-12-22] MEDS: Normal Saline Flush 10 ML SYR IVP (13:10)
[2021-12-22] MEDS: ERTAPENEM 1 GM in Normal Saline 50 ML IVPB (13:10)
[2021-12-23] MEDS: Normal Saline Flush 10 ML SYR IVP (12:53)
[2021-12-23] MEDS: ERTAPENEM 1 GM in Normal Saline 50 ML IVPB (12:57)
[2021-12-24 13:13] LABS: Abs Immature Grans 0.06 10^3/uL (0.0-0.06); Absolute Basophil Count 0.13 10^3/uL (0.0-0.2); Absolute Lymphocyte Count 2.08 10^3/uL (1.2-3.4); Eosinophils % 14.9; HCT 37.8 % (40.0-50.0); HGB 12.4 g/dL (13.5-17.5); Immature Grans % 0.4; Lymphocytes % 15.5; MCH 31.2 pg (27.0-33.0); MCHC 32.8 % (32.0-36.0); MCV 95 fL (80-95); MPV 9.3 fL (8.0-11.0); Monocytes % 7.7; Neutrophils % 60.5; Platelet Count 443 10^3/uL (130-400); RBC 3.97 10^6/uL (4.36-5.78); RDW 13.5 % (11.8-14.1); RDW-SD 47.5 fL; WBC 13.42 10^3/uL (4.4-10.8)
[2021-12-24 13:16] LABS: Absolute Monocyte Count 1.03 10^3/uL (0.1-0.8); Absolute Neutrophil Count 8.12 10^3/uL (1.2-6.7)
[2021-12-24 13:30] LABS: ALT 43 U/L (16-63); AST 31 U/L (15-37); Albumin 3.1 g/dL (3.4-5.0); Alkaline Phosphatase 100 U/L (46-116); Anion Gap 4.8 mmol/L (3-11); BUN 15 mg/dL (7-18); Bilirubin, Total 0.2 mg/dL (0.2-1.0); C-Reactive Protein 3.62 mg/dL (0.0-0.3); CO2 36.2 mmol/L (21.0-32.0); CREATININE 1.2 mg/dL (0.70-1.30); Calcium 9.1 mg/dL (8.5-10.1); Chloride 100 mmol/L (98-107); Glucose 119 mg/dL (74-106); Potassium 3.8 mmol/L (3.5-5.1); Sodium 141 mmol/L (136-145); Total Protein 7.8 g/dL (6.4-8.2)
[2021-12-24] MEDS: ERTAPENEM 1 GM in Normal Saline 50 ML IVPB (13:40)
[2021-12-24] MEDS: Normal Saline Flush 10 ML SYR IVP (14:10)
[2021-12-24] MEDS: DALBAVANCIN 1,500 MG in DEXTROSE 5%-WATER 325 ML 650 MG IVPB (14:10)
[2021-12-25] MEDS: Normal Saline Flush 10 ML SYR IVP (13:00)
[2021-12-25] MEDS: ERTAPENEM 1 GM in Normal Saline 50 ML IVPB (13:04)
[2021-12-26] MEDS: Normal Saline Flush 10 ML SYR IVP (13:08)
[2021-12-26] MEDS: ERTAPENEM 1 GM in Normal Saline 50 ML IVPB (13:10)
[2021-12-27] MEDS: ERTAPENEM 1 GM in Normal Saline 50 ML IVPB (13:05)
[2021-12-27] MEDS: Normal Saline Flush 10 ML SYR IVP (13:05)
[2021-12-28] MEDS: ERTAPENEM 1 GM in Normal Saline 50 ML IVPB (13:00)
[2021-12-28] MEDS: Normal Saline Flush 10 ML SYR IVP (13:02)
[2021-12-29] MEDS: ERTAPENEM 1 GM in Normal Saline 50 ML IVPB (13:05)
[2021-12-29] MEDS: Normal Saline Flush 10 ML SYR IVP (13:05)
[2021-12-30] MEDS: ERTAPENEM 1 GM in Normal Saline 50 ML IVPB (13:04)
[2021-12-30] MEDS: Normal Saline Flush 10 ML SYR IVP (13:05)
[2021-12-31] MEDS: Normal Saline Flush 10 ML SYR IVP (13:02)
[2021-12-31] MEDS: ERTAPENEM 1 GM in Normal Saline 50 ML IVPB (13:02)
[2021-12-31 13:33] LABS: Abs Immature Grans 0.05 10^3/uL (0.0-0.06); Absolute Basophil Count 0.18 10^3/uL (0.0-0.2); Absolute Eosinophil Count 1.92 10^3/uL (0.0-0.7); Absolute Lymphocyte Count 2.12 10^3/uL (1.2-3.4); Absolute Neutrophil Count 6.68 10^3/uL (1.2-6.7); Basophils % 1.5; Eosinophils % 16.2; HCT 39.3 % (40.0-50.0); HGB 12.6 g/dL (13.5-17.5); Immature Grans % 0.4; Lymphocytes % 17.9; MCH 30.8 pg (27.0-33.0); MCHC 32.1 % (32.0-36.0); MCV 96 fL (80-95); MPV 9.3 fL (8.0-11.0); Monocytes % 7.6; Neutrophils % 56.4; Platelet Count 444 10^3/uL (130-400); RBC 4.09 10^6/uL (4.36-5.78); RDW 13.8 % (11.8-14.1); RDW-SD 48.5 fL; WBC 11.85 10^3/uL (4.4-10.8)
[2021-12-31 13:45] LABS: ALT 33 U/L (16-63); AST 24 U/L (15-37); Albumin 3.2 g/dL (3.4-5.0); Alkaline Phosphatase 122 U/L (46-116); Anion Gap 7.3 mmol/L (3-11); BUN 14 mg/dL (7-18); Bilirubin, Total 0.3 mg/dL (0.2-1.0); C-Reactive Protein 2.08 mg/dL (0.0-0.3); CO2 33.7 mmol/L (21.0-32.0); CREATININE 1.2 mg/dL (0.70-1.30); Calcium 9.1 mg/dL (8.5-10.1); Chloride 99 mmol/L (98-107); Glucose 139 mg/dL (74-106); Potassium 3.5 mmol/L (3.5-5.1); Sodium 140 mmol/L (136-145); Total Protein 7.8 g/dL (6.4-8.2)
[2022-01-01] MEDS: ERTAPENEM 1 GM in Normal Saline 50 ML IVPB (13:25)
[2022-01-01] MEDS: Normal Saline Flush 10 ML SYR IVP (13:27)
[2022-01-02] MEDS: Normal Saline Flush 10 ML SYR IVP (13:27)
[2022-01-02] MEDS: ERTAPENEM 1 GM in Normal Saline 50 ML IVPB (13:29)
[2022-01-03] MEDS: Normal Saline Flush 10 ML SYR IVP (13:01)
[2022-01-03] MEDS: ERTAPENEM 1 GM in Normal Saline 50 ML IVPB (13:04)
[2022-01-04] MEDS: Normal Saline Flush 10 ML SYR IVP (12:27)
[2022-01-04] MEDS: ERTAPENEM 1 GM in Normal Saline 50 ML IVPB (12:29)
[2022-01-05] MEDS: Normal Saline Flush 10 ML SYR IVP (12:59)
[2022-01-05] MEDS: ERTAPENEM 1 GM in Normal Saline 50 ML IVPB (13:07)
[2022-01-06] MEDS: Normal Saline Flush 10 ML SYR IVP (12:07)
[2022-01-06] MEDS: ERTAPENEM 1 GM in Normal Saline 50 ML IVPB (12:15)
[2022-01-06] MEDS: Bacitracin 1 PACKET (12:21)
== END 2022-01-09 23:59 | disposition home or self-care (01) ==
LOC: INF 13:00
PROVIDERS: Internal Medicine; Internal Medicine Infectious Disease; PCP Family Medicine; Visit Provider Nurse Practitioner Acute Care
DX: B99.8 Other infectious disease (principal); E11.69 Type 2 diabetes mellitus with other specified complication; M86.171 Other acute osteomyelitis, right ankle and foot
CPT/HCPCS: 36415; 36592; 80053; 82550; 96365; 85025; 86140; J0875; J1335

== ENCOUNTER 2022-12-18 02:32 | Outpatient (RCR) | payer MEDICARE, SELFPAY ==
--- NOTE | 2022-12-18 12:15 | DI.RAD_ITS ---
Exam(s) XR PORTABLE CHEST AP POST LINE EXAM: XR PORTABLE CHEST AP POST LINE CLINICAL HISTORY: VERIFY PICC PLACEMENT TECHNIQUE: 2D digital imaging was performed. COMPARISON: No exams were available for comparison FINDINGS: The right side of the chest is not included in the field of view. A PICC line is been inserted via the left arm. The tip lies in the lower SVC. LUNGS: Prominent fibrotic changes. Elevation of the right diaphragm.. No pleural abnormality seen. HEART: Normal size. AORTA: Normal diameter. BONES: Unremarkable for age. Soft tissues: Unremarkable. IMPRESSION: Satisfactory placement of PICC line. DATA REPOSITORY: RADIATION DOSE DELIVERED:
[2022-12-18] MEDS: ceFAZolin 2 GM/50 ML BAG IVPB (13:05)
[2022-12-18] MEDS: Normal Saline Flush 10 ML SYR IVP (13:15)
[2022-12-18 13:44] LABS: Abs Immature Grans 0.09 10^3/uL (0.0-0.06); Absolute Lymphocyte Count 1.98 10^3/uL (1.2-3.4); Absolute Monocyte Count 1.07 10^3/uL (0.1-0.8); Absolute Neutrophil Count 8.78 10^3/uL (1.2-6.7); Basophils % 0.8; Eosinophils % 4.5; HCT 37.8 % (40.0-50.0); HGB 12.2 g/dL (13.5-17.5); Immature Grans % 0.7; Lymphocytes % 15.7; MCH 29.5 pg (27.0-33.0); MCHC 32.3 % (32.0-36.0); MCV 92 fL (80-95); MPV 9.8 fL (8.0-11.0); Monocytes % 8.5; Neutrophils % 69.8; Platelet Count 367 10^3/uL (130-400); RBC 4.13 10^6/uL (4.36-5.78); RDW 14.7 % (11.8-14.1); RDW-SD 49.1 fL; WBC 12.58 10^3/uL (4.4-10.8)
[2022-12-18 13:46] LABS: ALT 17 U/L (16-63); AST 17 U/L (15-37); Albumin 2.9 g/dL (3.4-5.0); Alkaline Phosphatase 69 U/L (46-116); Anion Gap 9.7 mmol/L (3-11); BUN 15 mg/dL (7-18); Bilirubin, Total 0.2 mg/dL (0.2-1.0); C-Reactive Protein 2.36 mg/dL (0.0-0.3); CO2 31.3 mmol/L (21.0-32.0); CREATININE 1.2 mg/dL (0.70-1.30); Chloride 107 mmol/L (98-107); Estimated GFR 65.46 (mL/min/1.73m2); Glucose 99 mg/dL (74-106); Potassium 4.1 mmol/L (3.5-5.1); Sodium 148 mmol/L (136-145)
[2022-12-18 13:48] LABS: Absolute Eosinophil Count 0.57 10^3/uL (0.0-0.7)
== END 2023-01-09 23:59 | disposition home or self-care (01) ==
LOC: INF 02:32
PROVIDERS: Internal Medicine Infectious Disease; PCP Family Medicine; Visit Provider Nurse Practitioner Family
DX: M86.9 Osteomyelitis, unspecified (principal); A49.8 Other bacterial infections of unspecified site; A49.01 Methicillin susceptible Staphylococcus aureus infection, unspecified site
CPT/HCPCS: 36569; 71045; 80053; 96365; 85025; 86140; J0690

== ENCOUNTER 2022-12-24 18:05 | Emergency (ER) | payer MEDICARE, SELFPAY ==
[2022-12-24 18:07] VITALS: BP 114/92; PULSE 99; RESP 18; TEMP 36.8; O2SAT 92
--- NOTE | 2022-12-24 20:48 | ED.GENADUL_ITS ---
Discharge Plan Disposition Patient Disposition: Home Condition: Stable Discharge Details Chief Complaint: Recheck Clinical Impression: Encounter for peripherally inserted central catheter (PICC) flush Primary Care Provider: Wicho Sarmiento ED Provider: Soy Frye Discharge Instructions Instructions: How to Care for Your PICC (Peripherally Inserted Central Catheter) (ED) Medical Decision Making 67-year-old male referred in by home health nurse for evaluation of left PICC line, line flushes appropriately, no signs of induration erythema purulence or bleeding, no signs of infiltration. Patient feels comfortable going home will follow-up closely with primary care and PICC line team. Sterile Applied to end of PICC line. HPI General Date/Time Provider Initiated Documentation: 12/24/22 20:42 . HPI Narrative: 67-year-old male referred in by home health nurse for evaluation of left PICC line, nurse noted a bump near the PICC line site, patient denies any bump denies pain fevers chills or swelling purulent discharge or bleeding. Line flushes appropriately General Stated Complaint: Recheck RUBY: 4 Review of Systems Narrative: Review of Systems Constitutional: negative Eyes: negative ENT: negative Cardiovascular: negative Respiratory: negative Gastrointestinal: negative : negative Musculoskeletal: negative Skin: negative Neurologic: negative Psych: negative PFSH All Active Problems (Updated 12/24/22 @ 20:51 by Soy Frye MD) Encounter for peripherally inserted central catheter (PICC) flush (Acute) Social History Smoking risk assessment performed?: No Exam Narrative Exam Narrative: Physical Examination General: alert, awake, cooperative, resting comfortably, no acute distress Extremities: PICC line clean dry intact no signs of induration erythema purulence or bleeding, no signs of infection, no signs of infiltration Course Vital Signs Vital signs: Vital Signs Temperature 36.8 C 12/24/22 18:07 Pulse 99 H 12/24/22 18:07 Respiratory Rate 18 12/24/22 18:07 Blood Pressure 114/92 H 12/24/22 18:07 Pulse Oximetry 92 12/24/22 18:07 Temperature 36.8 C 12/24/22 18:07 Temperature Source Temporal Artery Scan 12/24/22 18:07 Pulse 99 H 12/24/22 18:07 Respiratory Rate 18 12/24/22 18:07 Blood Pressure 114/92 H 12/24/22 18:07 Blood Pressure Position Sitting 12/24/22 18:07 Pulse Oximetry 92 12/24/22 18:07 Oxygen Delivery Method Room Air 12/24/22 18:07 Oxygen Flow Rate 0 12/24/22 18:07
== END 2022-12-24 21:06 | disposition home or self-care (01) ==
PROVIDERS: Emergency Provider Emergency Medicine; PCP Family Medicine
DX: Z45.2 Encounter for adjustment and management of vascular access device (principal)
CPT/HCPCS: 99281; 99282